=== PATIENT | male | born 1945 | race Caucasian/White ===

== ENCOUNTER 2023-03-13 07:48 | Outpatient (OUT) | payer MEDICARE, OTHER, SELFPAY ==
[2023-03-13 09:03] LABS: Thyroid Stimulating Hormone 2.334 uIU/mL (0.358-3.740)
[2023-03-14 04:07] LABS: RPR Non Reactive (Non Reactive)
== END 2023-03-13 07:49 ==
PROVIDERS: PCP Nurse Practitioner Adult Health; Visit Provider Family Medicine
DX: R41.89 Other symptoms and signs involving cognitive functions and awareness (principal)
CPT/HCPCS: 36415; 82607; 82746; 84443; 86592

== ENCOUNTER 2023-04-10 08:41 | Outpatient (OUT) | payer MEDICARE, SELFPAY ==
--- NOTE | 2023-04-10 08:52 | MR_ITS ---
The [address] [address] Patient Name: NEIL MARCELO MRN: [id number] date: 1945 Sex: M Assigned Patient Location: MRI Current Patient Location: MRI Accession/Order Number: [id number] Exam Date: 04/10/2023 09:02 Report Date: 04/10/2023 22:17 At the request of: GRACE VAZQUEZ Procedure: MR head/brain wo con EXAMINATION: MR head/brain wo con HISTORY: Cognitive Decline R41.89 TECHNIQUE: MRI brain routine protocol without contrast. COMPARISON: CT brain 04/07/2022 RESULT: Acute Change: No evidence of an acute intracranial process. Apparent area of restricted diffusion in the right potter radiata and right temporal lobe adjacent to the posterior horn of the right lateral ventricle, likely relates to T2 shine through. There is no ADC map correlate. Hemorrhage: No evidence of prior parenchymal hemorrhage on the susceptibility weighted sequences. Mass Lesion/ Mass Effect: No evidence of an intracranial mass or extra-axial fluid collection. No significant mass effect. Chronic Change: Scattered patchy and confluent areas of increased T2 and FLAIR signal are present in the supratentorial white matter which is nonspecific but likely represents chronic microvascular ischemia. Multiple small prior right cerebellar infarcts. Parenchyma: There is moderate generalized parenchymal volume loss. Ventricles: Splenomegaly, slightly out of proportion to degree of generalized volume loss. Skull Base: Hypothalamic and pituitary region are grossly normal. Craniocervical junction is normal. No significant marrow replacement process. Vasculature: Major intracranial arteries and dural venous sinuses demonstrate typical flow voids, suggesting patency by spin echo criteria. Other: Mild paranasal sinus mucosal thickening. Mastoid air cells are clear. The orbits and extracranial soft tissues are unremarkable. MR/MR head/brain wo con IMPRESSION: 1. No evidence of acute infarct or intracranial hemorrhage. 2. Ventriculomegaly, out of proportion to degree of generalized volume loss, nonspecific, but can be seen with normal pressure hydrocephalus. 3. 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 Electronically authenticated by: BHARAT MATHUR Date: 04/10/2023 22:17
== END 2023-04-10 08:42 | disposition home or self-care (01) ==
LOC: MRI 08:43
PROVIDERS: PCP Nurse Practitioner Adult Health; Visit Provider Nurse Practitioner Adult Health
DX: R41.89 Other symptoms and signs involving cognitive functions and awareness (principal)
CPT/HCPCS: 70551

== ENCOUNTER 2023-04-16 19:56 | Outpatient (OUT) | payer MEDICARE, OTHER, SELFPAY | END 2023-04-16 19:57 | disposition home or self-care (01) | LOC: SLEEP 19:57 | PROVIDERS: PCP Nurse Practitioner Adult Health; Visit Provider Nurse Practitioner Adult Health | DX: G47.33 Obstructive sleep apnea (adult) (pediatric) (principal); G47.11 Idiopathic hypersomnia with long sleep time ==

== ENCOUNTER 2023-05-14 20:05 | Outpatient (OUT) | payer MEDICARE, SELFPAY | END 2023-05-14 20:06 | disposition home or self-care (01) | LOC: SLEEP 20:05 | PROVIDERS: PCP Nurse Practitioner Adult Health; Visit Provider Nurse Practitioner Adult Health | DX: G47.33 Obstructive sleep apnea (adult) (pediatric) (principal); G47.11 Idiopathic hypersomnia with long sleep time | CPT/HCPCS: 95810 ==

== ENCOUNTER 2023-05-20 15:45 | Emergency (ER) | payer MEDICARE, SELFPAY ==
[2023-05-20 15:47] VITALS: BP 148/89; PULSE 58; RESP 18; TEMP 36.9; O2SAT 98; BMI 25.8
--- NOTE | 2023-05-20 15:53 | XR_ITS ---
[address] [address] Patient Name: NEIL MARCELO MRN: [id number] date: 1945 Sex: M Assigned Patient Location: ER Current Patient Location: ER Accession/Order Number: [id number] Exam Date: 05/20/2023 16:15 Report Date: 05/20/2023 16:44 At the request of: IVY SYLVESTER Procedure: XR humerus LT EXAM: XR humerus LT, XR shoulder LT min 2V HISTORY: fall COMPARISON: None. TECHNIQUE: 2 views of the humerus and 2 views of the shoulder FINDINGS: IMPRESSION: Comminuted displaced intra-articular fracture of the humeral head and proximal glenohumeral junction. Glenohumeral joint effusion. Diffuse soft tissue edema. Orthopedic surgical evaluation is necessary. Electronically authenticated by: TOBI MENESES Date: 05/20/2023 16:44
--- NOTE | 2023-05-20 15:53 | CT_ITS ---
The [address] [address] Patient Name: NEIL MARCELO MRN: [id number] date: 1945 Sex: M Assigned Patient Location: ER Current Patient Location: ER Accession/Order Number: [id number] Exam Date: 05/20/2023 16:23 Report Date: 05/20/2023 16:48 At the request of: IVY SYLVESTER Procedure: CT head/brain wo con EXAM: CT head/brain wo con HISTORY: fall COMPARISON: 04/12/2022 TECHNIQUE: Axial CT scans through the head were obtained without IV contrast administration. Dose reduction techniques were achieved by using: automated exposure control and/or adjustment of mA and /or kV according to patient size and/or use of iterative reconstruction technique. FINDINGS: There is no evidence of acute intracranial hemorrhage or abnormal extra-axial fluid collection. No mass effect or midline shift is seen. There is no evidence of large acute territorial infarction. There is a chronic infarct in left occipital lobe. There is an additional small chronic infarct in right posterior frontal lobe. Mild enlarged cerebral sulci, consistent with age appropriate cerebral atrophy. The lateral and third ventricles appear moderately dilated. This appears out of proportion to the sulci which raises the possibility of communicating hydrocephalus. Patchy areas of low-attenuation are present in supratentorial white matter, likely represents chronic microvascular ischemia. To the limit of CT, the posterior fossa appears unremarkable. No definite acute fracture is identified. Soft tissues are unremarkable. The visualized orbits show no abnormal mass. The visualized paranasal sinuses show no air-fluid level. Mastoid air cells are clear. CT/CT head/brain wo con IMPRESSION: No CT evidence of acute intracranial abnormality. Areas of remote infarct at the left occipital and right posterior frontal lobes. Chronic microvascular ischemia and involutional changes. Moderate ventriculomegaly which is out of proportion to the sulci. This may be due to atrophy or communicating hydrocephalus. Electronically authenticated by: MILTON GASTON Date: 05/20/2023 16:48
--- NOTE | 2023-05-20 15:53 | XR_ITS ---
[address] [address] Patient Name: NEIL MARCELO MRN: [id number] date: 1945 Sex: M Assigned Patient Location: ER Current Patient Location: ER Accession/Order Number: [id number] Exam Date: 05/20/2023 16:15 Report Date: 05/20/2023 16:44 At the request of: IVY SYLVESTER Procedure: XR shoulder LT min 2V EXAM: XR humerus LT, XR shoulder LT min 2V HISTORY: fall COMPARISON: None. TECHNIQUE: 2 views of the humerus and 2 views of the shoulder FINDINGS: IMPRESSION: Comminuted displaced intra-articular fracture of the humeral head and proximal glenohumeral junction. Glenohumeral joint effusion. Diffuse soft tissue edema. Orthopedic surgical evaluation is necessary. Electronically authenticated by: TOBI MENESES Date: 05/20/2023 16:44
--- NOTE | 2023-05-20 16:51 | ED_ITS ---
HPI - General Adult General Chief complaint: Extremity Injury, Upper Stated complaint: Upper Extremity Injury from fall Time Seen by Provider: 05/20/23 15:53 Source: patient Mode of arrival: ambulance Limitations: no limitations History of Present Illness HPI narrative: 77-year-old male presents here with a chief complaint of a fall. Patient was carrying a hose and was stuck under a tire and he tripped with his arm outstretched. Presents here by squad with a left shoulder injury. He is uncertain as to whether or not he hit his head. Denies loss of consciousness. He is on blood thinner. Patient also has a small skin tear to the webspace between the 1st and 2nd digits of the left hand. He is not up-to-date on tetanus immunization.. Swelling noted to left upper extremity on initial evaluation. He is alert and oriented ?3. Denies headache neck pain. Related Data Allergies Allergy/AdvReac Type Severity Reaction Status Date / Time No Known Drug Allergies Allergy Verified 05/20/23 15:49 Review of Systems ROS Narrative All Systems are negative except as noted/marked.All systems reviewed and otherwise negative Exam Narrative Exam Narrative: General: The patient appears well and in no apparent distress. Patient is resting comfortably on cart. Skin: Warm, dry, no pallor noted. There is no rash noted. Head: Normocephalic, atraumatic Neck: Full range of motion no tenderness Midline Eye: Normal conjunctiva, no drainage, EOMI. PERRL Ears, Nose, Mouth, and Throat: oral mucosa is moist. Nares patent. Mouth without vesicles. Ear canals patent. Tm's without Erythema Musculoskeletal: Upper extremity tenderness to the proximal humerus region, difficulty with range of motion unable to elevate above a hundred eighty degrees, respiratory distally,. Soft tissue abrasion noted to the web space of the left hand between the 1st and 2nd digits small amount of bleeding controlled.Her extremities are unremarkable Neurological: A&O x3 normal speech Psychiatric: Cooperative Constitutional Vital Signs, click to edit/add: Last Vital Signs Temp 98.4 F 05/20/23 15:47 Pulse 58 L 05/20/23 15:47 Resp 18 05/20/23 15:47 BP 148/89 H 05/20/23 15:47 Pulse Ox 98 05/20/23 15:47 O2 Del Method Room Air 05/20/23 15:47 Course Vital Signs Vital signs: Vital Signs Temperature 98.4 F 05/20/23 15:47 Pulse Rate 58 L 05/20/23 15:47 Respiratory Rate 18 05/20/23 15:47 Blood Pressure 148/89 H 05/20/23 15:47 Pulse Oximetry 98 05/20/23 15:47 Oxygen Delivery Method Room Air 05/20/23 15:47 Temperature 98.4 F 05/20/23 15:47 Pulse Rate 58 L 05/20/23 15:47 Respiratory Rate 18 05/20/23 15:47 Blood Pressure 148/89 H 05/20/23 15:47 Pulse Oximetry 98 05/20/23 15:47 Oxygen Delivery Method Room Air 05/20/23 15:47 Medical Decision Making MDM Narrative Medical decision making narrative: Patient presented here to the emergency room with chief complaint of a accidental trip and fall. Patient had a mechanical fall landing on the outstretched left shoulder. Patient has a comminuted Displaced intra articular fracture of the humeral head and proximal glenohumeral junction. Patient had a head CT performed as well as x-rays. Radiology reading of the head CT showed no acute bleeding. Patient does have a history of dementia and his head previous strokes in the past. He is alert and oriented to self but has some issue following commands. states this is his baseline. She does feel comfortable taking him home. She does not want to keep him here in the hospital. He will follow-up with orthopedics tomorrow morning. Medicated here with one Percocet and discharged home with Percocet. Follow up as indicated with orthopedics. instructed to bring back if she should have any concerns with increased confusion or irritability. Differential Diagnosis Differential Diagnosis: Shoulder sprain, fracture Medical Records Medical records reviewed: Yes I reviewed the patient's medical records Imaging Data The [address] [address] XRay Report Signed Patient: NEIL MARCELO MR#: [id number] : 1945 Acct:[id number] Age/Sex: 77 / M ADM Date: 05/20/23 Loc: ER Attending Dr: Ordering Physician: Verenice Sylvester Date of Service: 05/20/23 Procedure(s): XR humerus LT Accession Number(s): [id number] cc: Verenice Sylvester; SAM PABON ~ The [address] [address] Patient Name: NEIL MARCELO MRN: [facility]:[id number] date: 1945 Sex: M Assigned Patient Location: ER Current Patient Location: ER Accession/Order Number: [id number] Exam Date: 05/20/2023 16:15 Report Date: 05/20/2023 16:44 At the request of: VERENICE SYLVESTER Procedure: XR humerus LT EXAM: XR humerus LT, XR shoulder LT min 2V HISTORY: fall COMPARISON: None. TECHNIQUE: 2 views of the humerus and 2 views of the shoulder FINDINGS: IMPRESSION: Comminuted displaced intra-articular fracture of the humeral head and proximal glenohumeral junction. Glenohumeral joint effusion. Diffuse soft tissue edema. Orthopedic surgical evaluation is necessary. : Radiologist's impression: [place] [address] XRay Report Signed Patient: NEIL MARCELO MR#: [id number] : 1945 Acct:[id number] Age/Sex: 77 / M ADM Date: 05/20/23 Loc: ER Attending Dr: Ordering Physician: Verenice Sylvester Date of Service: 05/20/23 Procedure(s): XR humerus LT Accession Number(s): [id number] cc: Verenice Sylvester; PEPPERSAM ~ The [address] [address] Patient Name: NEIL MARCELO MRN: [facility]:[id number] date: 1945 Sex: M Assigned Patient Location: ER Current Patient Location: ER Accession/Order Number: [id number] Exam Date: 05/20/2023 16:15 Report Date: 05/20/2023 16:44 At the request of: VERENICE SYLVESTER Procedure: XR humerus LT EXAM: XR humerus LT, XR shoulder LT min 2V HISTORY: fall COMPARISON: None. TECHNIQUE: 2 views of the humerus and 2 views of the shoulder FINDINGS: IMPRESSION: Comminuted displaced intra-articular fracture of the humeral head and proximal glenohumeral junction. Glenohumeral joint effusion. Diffuse soft tissue edema. Orthopedic surgical evaluation is necessary. VERENICE SYLVESTER Procedure: CT head/brain wo con EXAM: CT head/brain wo con HISTORY: fall COMPARISON: 04/12/2022 TECHNIQUE: Axial CT scans through the head were obtained without IV contrast administration. Dose reduction techniques were achieved by using: automated exposure control and/or adjustment of mA and /or kV according to patient size and/or use of iterative reconstruction technique. FINDINGS: There is no evidence of acute intracranial hemorrhage or abnormal extra-axial fluid collection. No mass effect or midline shift is seen. There is no evidence of large acute territorial infarction. There is a chronic infarct in left occipital lobe. There is an additional small chronic infarct in right posterior frontal lobe. Mild enlarged cerebral sulci, consistent with age appropriate cerebral atrophy. The lateral and third ventricles appear moderately dilated. This appears out of proportion to the sulci which raises the possibility of communicating hydrocephalus. Patchy areas of low-attenuation are present in supratentorial white matter, likely represents chronic microvascular ischemia. To the limit of CT, the posterior fossa appears unremarkable. No definite acute fracture is identified. Soft tissues are unremarkable. The visualized orbits show no abnormal mass. The visualized paranasal sinuses show no air-fluid level. Mastoid air cells are clear. IMPRESSION: No CT evidence of acute intracranial abnormality. Areas of remote infarct at the left occipital and right posterior frontal lobes. Chronic microvascular ischemia and involutional changes. Moderate ventriculomegaly which is out of proportion to the sulci. This may be due to atrophy or communicating hydrocephalus. Electronically authenticated Discharge Plan Discharge Chief Complaint: Extremity Injury, Upper Clinical Impression: Fracture of shoulder Patient Disposition: Home, Self-Care Time of Disposition Decision: 17:13 Condition: Good Instructions: Arm Fracture in Adults (ED), P.R.I.C.E. Treatment (ED) Stand Alone Forms: Portal Instructions Referrals: SAM PABON [Primary Care Provider] - 1 week Gianfranco Elkins MD [Physician] - 05/21/23 9:30 am
[2023-05-20] MEDS: ADACEL DIPH,PERTUSS(ACELL),TET VAC/PF 0.5 ML ADULT SYRINGE IM (17:14)
--- NOTE | 2023-05-20 17:41 | PC.NURSE ---
Placed sling on left arm. Patient education on how to dress with a fractured humerus, how to place sling, how to remove sling. Education provided to and patient. No further questions.
== END 2023-05-20 17:44 | disposition home or self-care (01) ==
PROVIDERS: Emergency Provider Emergency Medicine Emergency Medical Services; PCP Family Medicine
DX: S42.292A Other displaced fracture of upper end of left humerus, initial encounter for closed fracture (principal); S60.512A Abrasion of left hand, initial encounter; W01.10XA Fall on same level from slipping, tripping and stumbling with subsequent striking against unspecified object, initial encounter; Z23 Encounter for immunization; F03.90 Unspecified dementia, unspecified severity, without behavioral disturbance, psychotic disturbance, mood disturbance, and anxiety; Z86.73 Personal history of transient ischemic attack (TIA), and cerebral infarction without residual deficits
CPT/HCPCS: 70450; 73030; 73060; 90471; 90715; 99284

== ENCOUNTER 2023-06-04 09:25 | Outpatient (OUT) | payer MEDICARE, SELFPAY ==
--- NOTE | 2023-06-04 09:27 | XR_ITS ---
[address] [address] Patient Name: NEIL MARCELO MRN: [id number] date: 1945 Sex: M Assigned Patient Location: RAD Current Patient Location: [facility] Accession/Order Number: [id number] Exam Date: 06/04/2023 09:35 Report Date: 06/04/2023 12:26 At the request of: RYAN FLOWERS Procedure: XR shoulder LT min 2V EXAM: XR shoulder LT min 2V HISTORY: Other Closed Nondisplaced Fracture Of Left Humerus COMPARISON: 05/20/2023 TECHNIQUE: 2 views Findings/impression: No significant change from the prior exam. Comminuted mildly displaced intra-articular fracture of the proximal humerus. No soft tissue swelling. Electronically authenticated by: CONCHITA QUIROZ Date: 06/04/2023 12:26
== END 2023-06-04 09:26 | disposition home or self-care (01) ==
LOC: RAD 09:25
PROVIDERS: PCP Nurse Practitioner Adult Health; Visit Provider Orthopaedic Surgery
DX: S42.295A Other nondisplaced fracture of upper end of left humerus, initial encounter for closed fracture (principal)
CPT/HCPCS: 73030

== ENCOUNTER 2023-06-07 08:49 | Outpatient (OUT) | payer MEDICARE, SELFPAY ==
[2023-06-07 09:11] LABS: Basophils Percent Auto 0.4 % (0.2-2.0); Eosinophils Absolute Auto 0.2 10^3/uL (0.0-0.7); Eosinophils Percent Auto 5.4 % (0.9-7.0); Hematocrit 26.8 % (42.0-54.0); Hemoglobin 9.1 g/dL (14.0-18.0); Immature Granulocytes Abs Auto 0.01 10^3/uL (0.00-0.03); Immature Granulocytes Pct Auto 0.4 % (0.0-0.5); Lymphocytes Absolute Auto 1.1 10^3/uL (1.2-3.8); Lymphocytes Percent Auto 38.7 % (20.5-60.0); Mean Corpuscular Hemoglobin 37.1 pg (25.9-34.0); Mean Corpuscular Volume 109.4 fL (80.0-94.0); Mean Platelet Volume 8.4 fL (9.5-13.5); Monocytes Absolute Auto 0.1 10^3/uL (0.3-0.8); Monocytes Percent Auto 4.3 % (1.7-12.0); Neutrophils Absolute Auto 1.4 10^3/uL (1.4-6.5); Neutrophils Percent Auto 50.8 % (43.0-75.0); Platelet Count 199 10^3/uL (150-450); Red Blood Count 2.45 10^6/uL (4.70-6.10); Red Cell Distribution Width 13.1 % (11.0-15.0); White Blood Count 2.8 10^3/uL (4.0-11.0)
[2023-06-07 09:32] LABS: Alanine Aminotransferase 16 U/L (16-63); Albumin Globulin Ratio 0.7; Albumin Level 3.2 g/dL (3.4-5.0); Alkaline Phosphatase 132 U/L (46-116); Aspartate Amino Transferase 13 U/L (15-37); BUN Creatinine Ratio 9.6; Bilirubin Total 0.5 mg/dL (0.2-1.0); Calcium 9.5 mg/dL (8.5-10.1); Chloride 101 mmol/L (98-107); Chol HDL Ratio 1.8; Cholesterol 73 mg/dL (<=200); Estimated GFR (African America >60 (>=60); Estimated GFR (Non-African Ame >60 (>=60); Globulin 4.6 g/dL; Glucose 95 mg/dL (74-106); HDL Cholesterol 40 mg/dL (40-60); LDL Cholesterol Calculated 22.2 mg/dL; Sodium 135 mmol/L (136-145); Thyroid Stimulating Hormone 3.331 uIU/mL (0.358-3.740); Total Protein 7.8 g/dL (6.4-8.2); Triglycerides 54 mg/dL (<=150); VLDL CHOLESTEROL 10.8 mg/dL
[2023-06-07 09:57] LABS: Free T4 0.97 ng/dL (0.76-1.46)
== END 2023-06-07 08:50 | disposition home or self-care (01) ==
LOC: LAB 08:52
PROVIDERS: PCP Family Medicine
DX: N40.0 Benign prostatic hyperplasia without lower urinary tract symptoms (principal); Z87.891 Personal history of nicotine dependence; G45.9 Transient cerebral ischemic attack, unspecified; Z79.899 Other long term (current) drug therapy; I10 Essential (primary) hypertension; Z79.01 Long term (current) use of anticoagulants; Z86.79 Personal history of other diseases of the circulatory system; I95.9 Hypotension, unspecified; E66.3 Overweight
CPT/HCPCS: 36415; 80053; 80061; 84439; 84443; 85025

== ENCOUNTER 2023-06-15 09:16 | Outpatient (OUT) | payer MEDICARE, SELFPAY ==
[2023-06-15 09:33] LABS: Eosinophils Absolute Auto 0.2 10^3/uL (0.0-0.7); Eosinophils Percent Auto 8.4 % (0.9-7.0); Hematocrit 27.2 % (42.0-54.0); Hemoglobin 9.1 g/dL (14.0-18.0); Lymphocytes Absolute Auto 1.1 10^3/uL (1.2-3.8); Lymphocytes Percent Auto 40.3 % (20.5-60.0); Mean Corpuscular HGB Conc 33.5 g/dL (29.9-35.2); Mean Corpuscular Hemoglobin 37.3 pg (25.9-34.0); Mean Corpuscular Volume 111.5 fL (80.0-94.0); Mean Platelet Volume 8.6 fL (9.5-13.5); Monocytes Absolute Auto 0.1 10^3/uL (0.3-0.8); Monocytes Percent Auto 3.8 % (1.7-12.0); Neutrophils Absolute Auto 1.3 10^3/uL (1.4-6.5); Neutrophils Percent Auto 47.5 % (43.0-75.0); Platelet Count 153 10^3/uL (150-450); Red Blood Count 2.44 10^6/uL (4.70-6.10); White Blood Count 2.6 10^3/uL (4.0-11.0)
== END 2023-06-15 09:17 | disposition home or self-care (01) ==
LOC: LAB 09:18
PROVIDERS: PCP Family Medicine
DX: D64.9 Anemia, unspecified (principal)
CPT/HCPCS: 36415; 85025

== ENCOUNTER 2023-07-09 20:06 | Outpatient (OUT) | payer MEDICARE, SELFPAY | END 2023-07-09 20:07 | disposition home or self-care (01) | LOC: SLEEP 20:06 | PROVIDERS: PCP Family Medicine; Visit Provider Nurse Practitioner Adult Health | DX: G47.33 Obstructive sleep apnea (adult) (pediatric) (principal); G47.11 Idiopathic hypersomnia with long sleep time | CPT/HCPCS: 95811 ==

== ENCOUNTER 2023-07-13 15:53 | Emergency (ER) | payer MEDICARE, SELFPAY ==
[2023-07-13] VITALS (9 sets, daily range): BP systolic 162–190; BP diastolic 77–97; PULSE 78–90; RESP 7–20; TEMP 36.5; O2SAT 97–100; BMI 32.9
--- NOTE | 2023-07-13 16:01 | ECG_ITS ---
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
--- NOTE | 2023-07-13 16:09 | ED_ITS ---
HPI - General Adult General Chief complaint: Head Injury Stated complaint: FALL Time Seen by Provider: 07/13/23 16:01 Source: patient Mode of arrival: ambulance Limitations: no limitations History of Present Illness HPI narrative: Patient is a 77-year-old male who is presenting to the Emergency Room after multiple falls at home. Patient fell due to days ago. Patient does take Eliquis. Patient came in by EMS. Patient daughter at home is a very good historian. Patient has been diagnosed with vascular dementia and cognitive decline. Patient sees Dr. Vanegas for neurology. Patient's PCP is in Dr. Eros Rain. Patient was a home with his . Patient has a cane and just recently has a walker at home that he can use. However patient is unsteady with his gait this pain ongoing for the past 3-4 months. Patient also has fallen and broke his left shoulder. Patient is supposed to be having a left shoulder reversal of that shoulder replacement surgery, and awaiting for weeks for this. To patient's h aving a hard time using his left arm secondary to left shoulder pain from previous fracture. Patient has unsteady gait which is been ongoing, chronic, but slightly getting worse. Patient wants to go home, he does not want to be admitted to the hospital. Patient is not interested in assisted living. Patient's and his had never had a home health assessment, daughter was not aware of this. The daughter is only one helping the parents at home, she lives in [place]. Daughter is very nice and extremely good source of history. Patient is taking Eliquis and aspirin. . All systems are negative except as noted/marked. All systems reviewed and otherwise negative. . Nurses note and vital signs reviewed and patient is not hypoxic. General: The patient appears well and in no apparent distress. Patient is resting comfortably on cart. Patient is not toxic, lethargic, or listless Skin: Warm, dry, no pallor noted. There is no rash noted. No petechiae, purpura. Head: Normocephalic, atraumatic, Patient has no midline or paracervical tenderness to palpation. Full range of motion of cervical spinal no difficulty. Eye: Normal conjunctiva, no drainage, EOMI. PERRL Ears, Nose, Mouth, and Throat: oral mucosa is moist. Nares patent. Mouth without vesicles. Cardiovascular: Regular Rate and Rhythm, no murmur, gallop, rub Respiratory: Patient is in no distress, no accessory muscle use, lungs are clear to auscultation, no wheezing, rales or rhonchi Back: non-tender, no CVA tenderness bilaterally to percussion. No CT LS midline pain GI: soft, no tenderness to palpation, no masses appreciated. No rebound, guarding, or rigidity noted. No flank pain bilateral, No distention Musculoskeletal: Patient has full range of motion of all of the extremities Except the left upper show any. Patient has full range of motion of left elbow, wrist and hand no difficulty. Patient has moderate ongoing chronic pain with extreme extension flexion and abduction of left shoulder secondary to previous fracture approximately one month ago., no motor, sensory, or focal neurological deficits Neurological: A&O x3, Slightly confused to time, knows it is fall, normal speech, NIH 0. Patient will intermittently hesitate to answer questions, this is normal baseline for him per daughters witnessing this at bedside as well. NIH 0. Patient is at his normal basic functioning cognitive baseline according to daughter at bedside. No acute changes at this time. Psychiatric: Cooperative Related Data Home Medications Medication Instructions Recorded Confirmed apixaban 5 mg tablet (Eliquis) 5 mg PO Q12H 05/20/23 07/13/23 atorvastatin 40 mg tablet 40 mg PO DAILY 05/20/23 07/13/23 cyanocobalamin (vitamin B-12) 1,000 mcg PO DAILY 05/20/23 07/13/23 1,000 mcg tablet doxazosin 4 mg tablet 4 mg PO DAILY 05/20/23 07/13/23 finasteride 5 mg tablet 5 mg PO DAILY 05/20/23 07/13/23 fluoxetine 20 mg capsule 20 mg PO DAILY 05/20/23 07/13/23 folic acid 1 mg tablet 1 mg PO DAILY 05/20/23 07/13/23 metoprolol succinate 25 mg 25 mg PO DAILY 05/20/23 07/13/23 tablet,extended release 24 hr spironolactone 25 mg tablet 25 mg PO DAILY 05/20/23 07/13/23 bfkmivqlgx-gnkcovxmemetc-yemmkkwd 1 tab PO Q6H PRN pain 07/13/23 07/13/23 50 mg-325 mg-40 mg tablet levothyroxine 125 mcg tablet 125 mcg PO DAILY 07/13/23 07/13/23 loperamide 2 mg capsule 2 mg PO Q6H PRN loose stool 07/13/23 07/13/23 losartan 100 mg tablet 100 mg PO DAILY 07/13/23 07/13/23 meclizine 25 mg tablet 25 mg PO .every 6 hour PRN 07/13/23 07/13/23 dizziness memantine 5 mg tablet 5 mg PO .daily 07/13/23 07/13/23 tolterodine 2 mg capsule,extended 2 mg PO Q24H 07/13/23 07/13/23 release 24 hr Allergies Allergy/AdvReac Type Severity Reaction Status Date / Time No Known Drug Allergies Allergy Verified 05/20/23 15:49 PFSH PFSH Medical History (Updated 07/13/23 @ 17:56 by Tobias Velasco MD) Afib ?I48.91 - Unspecified atrial fibrillation (ICD-10) Alzheimer disease ?G30.9 - Alzheimer's disease, unspecified (ICD-10) ?F02.80 - Dementia in other diseases classified elsewhere, unspecified severity, without behavioral disturbance, psychotic disturbance, mood disturbance, and anxiety (ICD-10) BPH (benign prostatic hyperplasia) ?N40.0 - Benign prostatic hyperplasia without lower urinary tract symptoms (ICD-10) Head injury ?S09.90XA - Unspecified injury of head, initial encounter (ICD-10) Hypertension ?I10 - Essential (primary) hypertension (ICD-10) Multiple falls ?R29.6 - Repeated falls (ICD-10) NPH (normal pressure hydrocephalus) ?G91.2 - (Idiopathic) normal pressure hydrocephalus (ICD-10) Obstructive sleep apnea ?G47.33 - Obstructive sleep apnea (adult) (pediatric) (ICD-10) Recurrent cerebrovascular accidents (CVAs) ?I63.9 - Cerebral infarction, unspecified (ICD-10) Vertigo ?R42 - Dizziness and giddiness (ICD-10) Social History Smoking status: Never smoker Exam Constitutional Vital Signs, click to edit/add: Last Vital Signs Temp 97.7 F 07/13/23 15:56 Pulse 78 07/13/23 17:12 Resp 20 07/13/23 17:12 BP 165/77 H 07/13/23 17:12 Pulse Ox 98 07/13/23 17:12 O2 Del Method Room Air 07/13/23 16:11 Course Vital Signs Vital signs: Vital Signs Temperature 97.7 F 07/13/23 15:56 Pulse Rate 78 07/13/23 15:56 Respiratory Rate 18 07/13/23 15:56 Blood Pressure 162/92 H 07/13/23 15:56 Pulse Oximetry 98 07/13/23 15:56 Temperature 97.7 F 07/13/23 15:56 Pulse Rate 78 07/13/23 17:12 Respiratory Rate 20 07/13/23 17:12 Blood Pressure 165/77 H 07/13/23 17:12 Pulse Oximetry 98 07/13/23 17:12 Oxygen Delivery Method Room Air 07/13/23 16:11 Medical Decision Making Lab Data Lab results reviewed: Yes I reviewed the patient's lab results Labs: Lab Results 07/13/23 07/13/23 Range/Units 16:16 17:29 WBC 2.7 L (4.0-11.0) 10^3/uL RBC 2.61 L (4.70-6.10) 10^6/uL Hgb 10.0 L (14.0-18.0) g/dL Hct 28.3 L (42.0-54.0) % MCV 108.4 H (80.0-94.0) fL MCH 38.3 H (25.9-34.0) pg MCHC 35.3 H (29.9-35.2) g/dL RDW 12.4 (11.0-15.0) % Plt Count 155 (150-450) 10^3/uL MPV 8.5 L (9.5-13.5) fL Neut % (Auto) 57.7 (43.0-75.0) % Lymph % (Auto) 32.4 (20.5-60.0) % [place] % (Auto) 4.4 (1.7-12.0) % Eos % (Auto) 5.5 (0.9-7.0) % Baso % (Auto) 0.0 L (0.2-2.0) % Neut # (Auto) 1.6 (1.4-6.5) 10^3/uL Lymph # (Auto) 0.9 L (1.2-3.8) 10^3/uL [place] # (Auto) 0.1 L (0.3-0.8) 10^3/uL Eos # (Auto) 0.2 (0.0-0.7) 10^3/uL Baso # (Auto) 0.0 (0.0-0.1) 10^3/uL Abs Immat Gran (auto) 0.00 (0.00-0.03) 10^3/uL Imm/Tot Granulo (auto) 0.0 (0.0-0.5) % PT 11.4 (9.0-11.6) sec INR 1.08 Sodium 131 L (136-145) mmol/L Potassium 3.7 (3.5-5.1) mmol/L Chloride 99 (98-107) mmol/L Carbon Dioxide 24.4 (21.0-32.0) mmol/L Anion Gap 11.3 BUN 21.0 H (7.0-18.0) mg/dL Creatinine 1.09 (0.70-1.30) mg/dL Est GFR ( Amer) >60 (>=60) Est GFR (Non-Af Amer) >60 (>=60) BUN/Creatinine Ratio 19.3 Glucose 99 (74-106) mg/dL Lactate 0.9 (0.4-2.0) mmol/L Calcium 9.4 (8.5-10.1) mg/dL Magnesium 1.7 L (1.8-2.4) mg/dL Total Bilirubin 0.3 (0.2-1.0) mg/dL AST 13 L (15-37) U/L ALT 16 (16-63) U/L Alkaline Phosphatase 123 H (46-116) U/L Troponin I High Sens 16.4 (4.0-76.1) pg/mL NT-Pro-B Natriuret Pep 109.0 (<=1800.0) pg/mL Total Protein 8.2 (6.4-8.2) g/dL Albumin 3.4 (3.4-5.0) g/dL Globulin 4.8 g/dL Albumin/Globulin Ratio 0.7 Lipase 47.0 (16.0-77.0) U/L TSH 2.970 (0.358-3.740) uIU/mL Urine Color Lt. yellow (YELLOW) Urine Clarity Clear (CLEAR) Urine pH 5.5 (5.0-9.0) Ur Specific [place] 1.010 (1.005-1.025) Urine Protein Negative (NEG/TRACE) mg/dL Urine Glucose (UA) Negative (NEGATIVE) mg/dL Urine Ketones Negative (NEGATIVE) mg/dL Urine Occult Blood Trace-i (NEGATIVE) Urine Nitrite Negative (NEGATIVE) Urine Bilirubin Negative (NEGATIVE) Urine Urobilinogen 0.2 (0.2-1.0) EU/dL Ur Leukocyte Esterase Negative (NEGATIVE) Urine RBC 0-2 (0-2) #/HPF Urine WBC None seen (NONE SEEN) #/HPF Ur Squamous Epith Cells None seen (NONE/RARE) #/LPF Urine Crystals None seen (None Seen) #/HPF Urine Bacteria None seen (NONE SEEN) #/HPF Urine Casts None seen (NONE SEEN) #/LPF Urine Mucus None seen (NONE SEEN) Patient has chronic pancytopenia, not acute. CT of the brain showed no acute findings. Patient CT of the head, cervical spine, chest, abdomen, pelvis. Patient has bilateral ventralmegaly seen on MRI in March and also on CAT scan today. Lengthy discussion was had at bedside that patient may have normal pressure hydrocephalus that could be causing some of his symptoms of urinary incontinence, unsteady gait, and intermittent confusion. It was recommended the patient call Dr. Vanegas office and speak to them on Sunday to see if a spinal tap would be indicated or not. Patient has multiple specialists/Physicians worked with him with his multiple etiologies of vascular dementia, cognitive decline. Patient uses a walker at discharge well that is normal for him. Patient was prescribed a rollader with a seat to use at home. Patient's daughter was at bedside throughout patient's visit. She is an excellent source of history. Patient wants to go home, he has a functional decision-making capacity to go home. We spent 10-15 minutes talking about home health care assessments, calling the PCP on Sunday to have a home health care assessment initiated which has not been done yet. We talked about possibility of home health care, and potentially the future of assisted living or further assistant producer nursing care. Patient understands this, as his daughter. Patient's works at [employer], she has 3 more weeks of working, she makes the dresses/seamstress other costumes. Patient and daughter feel that there is enough help at home and feels safe taking him home at this time. Patient is very adamant that he wants to go home, does not want be placing any type of admission to the hospital rehab at this time. Patient walked with a walker at discharge, no questions at discharge. No acute findings and patient's lab testing. ECG Data Attestation: I personally reviewed and interpreted this ECG as follows: (EKG interpretation. Normal sinus rhythm at 79 beats a minute. Normal axis deviation. No acute ST elevation, no acute ectopy. QTC of 416. Artifact noted.) Discharge Plan Discharge Chief Complaint: Head Injury Clinical Impression: Multiple falls Patient Disposition: Home, Self-Care Condition: Fair Prescriptions / Home Meds: No Action Eliquis 5 mg tablet 5 mg PO Q12H atorvastatin 40 mg tablet 40 mg PO DAILY cyanocobalamin (vitamin B-12) 1,000 mcg tablet 1,000 mcg PO DAILY doxazosin 4 mg tablet 4 mg PO DAILY finasteride 5 mg tablet 5 mg PO DAILY fluoxetine 20 mg capsule 20 mg PO DAILY folic acid 1 mg tablet 1 mg PO DAILY metoprolol succinate 25 mg tablet extended release 24 hr 25 mg PO DAILY spironolactone 25 mg tablet 25 mg PO DAILY fixmrdiwlg-ckwzzrittjgam-qkwa 50-325-40 mg tablet 1 tab PO Q6H PRN (Reason: pain) levothyroxine 125 mcg tablet 125 mcg PO DAILY loperamide 2 mg capsule 2 mg PO Q6H PRN (Reason: loose stool) losartan 100 mg tablet 100 mg PO DAILY Patient Comments: take 1/2 pill (50mg total) meclizine 25 mg tablet 25 mg PO .every 6 hour PRN (Reason: dizziness) memantine 5 mg tablet 5 mg PO .daily tolterodine 2 mg capsule,extended release 24hr 2 mg PO Q24H Instructions: Hydrocephalus (DC) Additional Instructions: Call Dr. Vanegas office on Sunday and follow-up on results of MRI from March and CAT scans from today along with multiple falls. Call Sunday to your advertising inserter concerning whether he should continue taking Eliquis or not secondary to multiple falls in the risk of falling and hitting her head with blood thinners. A copy of your MRI from March, and your CAT scans from today have been given to you. Stand Alone Forms: Portal Instructions Referrals: SAM PABON [Primary Care Provider] - 1 week
[2023-07-13 16:23] LABS: Eosinophils Absolute Auto 0.2 10^3/uL (0.0-0.7); Eosinophils Percent Auto 5.5 % (0.9-7.0); Hematocrit 28.3 % (42.0-54.0); Lymphocytes Absolute Auto 0.9 10^3/uL (1.2-3.8); Lymphocytes Percent Auto 32.4 % (20.5-60.0); Mean Corpuscular HGB Conc 35.3 g/dL (29.9-35.2); Mean Corpuscular Hemoglobin 38.3 pg (25.9-34.0); Mean Corpuscular Volume 108.4 fL (80.0-94.0); Mean Platelet Volume 8.5 fL (9.5-13.5); Monocytes Absolute Auto 0.1 10^3/uL (0.3-0.8); Monocytes Percent Auto 4.4 % (1.7-12.0); Neutrophils Absolute Auto 1.6 10^3/uL (1.4-6.5); Neutrophils Percent Auto 57.7 % (43.0-75.0); Platelet Count 155 10^3/uL (150-450); Red Blood Count 2.61 10^6/uL (4.70-6.10); Red Cell Distribution Width 12.4 % (11.0-15.0); White Blood Count 2.7 10^3/uL (4.0-11.0)
[2023-07-13 16:36] LABS: INR 1.08; Prothrombin Time 11.4 sec (9.0-11.6)
[2023-07-13 16:39] LABS: Alanine Aminotransferase 16 U/L (16-63); Albumin Globulin Ratio 0.7; Albumin Level 3.4 g/dL (3.4-5.0); Alkaline Phosphatase 123 U/L (46-116); Anion Gap 11.3; Aspartate Amino Transferase 13 U/L (15-37); BUN Creatinine Ratio 19.3; Bilirubin Total 0.3 mg/dL (0.2-1.0); Calcium 9.4 mg/dL (8.5-10.1); Carbon Dioxide 24.4 mmol/L (21.0-32.0); Chloride 99 mmol/L (98-107); Estimated GFR (African America >60 (>=60); Estimated GFR (Non-African Ame >60 (>=60); Globulin 4.8 g/dL; Glucose 99 mg/dL (74-106); Potassium 3.7 mmol/L (3.5-5.1); Sodium 131 mmol/L (136-145); Total Protein 8.2 g/dL (6.4-8.2)
[2023-07-13 16:40] LABS: Lactate/Lactic Acid 0.9 mmol/L (0.4-2.0)
[2023-07-13 16:46] LABS: Magnesium 1.7 mg/dL (1.8-2.4); Troponin I High Sensitivity 16.4 pg/mL (4.0-76.1)
--- NOTE | 2023-07-13 16:51 | CT_ITS ---
[address] [address] Patient Name: NEIL MARCELO MRN: [id number] date: 1945 Sex: M Assigned Patient Location: ER Current Patient Location: Accession/Order Number: [id number] Exam Date: 07/13/2023 16:27 Report Date: 07/13/2023 17:20 At the request of: ABHINAV BOLTON Procedure: CT chest w con EXAM: CT chest w con, CT abdomen pelvis w con TECHNIQUE: Axial CT images were obtained of the chest, abdomen and pelvis following intravenous contrast administration. Sagittal and coronal reformatted images were also obtained. Dose reduction techniques were achieved by using automated exposure control and/or adjustment of mA and/or kV according to patient size and/or use of iterative reconstruction technique. HISTORY: Recent falls COMPARISON: 11/05/2021 FINDINGS: Neck and Axilla: No lower neck or axillary lymphadenopathy. Mediastinum and Yenifer: No hilar or mediastinal lymphadenopathy. Heart and Major Vessels: The heart appears unremarkable for size without pericardial effusion. The aorta and central pulmonary arteries are unremarkable for size. Lung Arredondo: Trachea and central bronchi are clear. Stable benign 5 mm rounded nodule medially in the right lung apex. Pleural Cavities: No significant pleural effusion. No pneumothorax. Chest Wall: Right shoulder arthroplasty noted. Chronic posttraumatic deformity of the left proximal humerus. Several old healed rib fractures bilaterally. No definite acute rib fracture. Liver: The liver is homogeneous with normal contours and normal size. Gallbladder: The gallbladder is unremarkable. There is no intra or extrahepatic biliary dilatation. Pancreas: The pancreas is homogeneous without evidence for mass lesion or inflammation. Spleen: The spleen is unremarkable without evidence for mass lesion. Adrenal glands: The adrenal glands are unremarkable Kidneys and bladder: 9.7 cm simple cyst of the lateral cortex right kidney. 6.7 cm benign simple cyst of the mid to upper pole left kidney. Punctate nonobstructing calcification of both kidneys. The ureters demonstrate normal caliber. The urinary bladder is unremarkable. GI Tract: Stomach is unremarkable. Visualized small bowel is unremarkable without evidence for obstruction or active inflammation. The appendix is unremarkable.Diverticula are seen of the colon, more significant involving the distal colon. The visualized large bowel is otherwise unremarkable. Reproductive: Unremarkable Lymph nodes: No retroperitoneal or abdominal lymphadenopathy. Vascular: The aorta is not dilated. Peritoneum: No free intraperitoneal air or fluid. No acute inflammation. Abdominal wall: Moderate superior endplate compression fracture of the L1 vertebral body appears worse than on 11/05/2021 but otherwise chronic without surrounding hematoma. Degenerative disc disease L5-S1. Subcutaneous soft tissue hematoma lateral to the left hip. CT/CT chest w con IMPRESSION: No acute traumatic injury to the chest, abdomen or pelvis. Chronic findings of the chest, abdomen and pelvis, as above. Electronically authenticated by: JACINTO TOSCANO Date: 07/13/2023 17:20
--- NOTE | 2023-07-13 16:51 | CT_ITS ---
The [place] [id number] Patient Name: NEIL MARCELO MRN: [id number] date: 1945 Sex: M Assigned Patient Location: ER Current Patient Location: ER Accession/Order Number: [id number] Exam Date: 07/13/2023 16:27 Report Date: 07/13/2023 17:00 At the request of: ABHINAV BOLTON Procedure: CT cervical spine wo con EXAM: CT cervical spine wo con HISTORY: falls COMPARISON: Cervical spine CT 11/05/2021 TECHNIQUE: Axial CT imaging is performed. Sagittal and coronal reformatted/reconstructed sequences are additionally performed. FINDINGS: Again demonstrated is straightening of the normal cervical lordosis. Vertebral body heights and alignments exhibit no fracture or listhesis. The dens and lateral masses of C1 are symmetric. Multilevel intervertebral disc space narrowing, endplate and uncovertebral arthrosis. Scattered age-related facet arthrosis. No prevertebral soft tissue edema. Atherosclerosis of the vascular structures. Approximately 15.9 x 12 x 5.3 mm polyp within the left sphenoid sinus (axial 5, coronal 1 and sagittal 27). The visualized osseous skull base, mastoid air cells, airway, superficial subcutaneous soft tissues, thoracic inlet and pulmonary apices exhibit no gross visualized acute abnormality CT/CT cervical spine wo con IMPRESSION: No visualized acute cervical spine abnormality 15.9 x 12 x 5.3 mm polyp within the left sphenoid sinus Electronically authenticated by: TOBI MENESES Date: 07/13/2023 17:00
--- NOTE | 2023-07-13 16:51 | CT_ITS ---
The [address] [address] Patient Name: NEIL MARCELO MRN: [id number] date: 1945 Sex: M Assigned Patient Location: ER Current Patient Location: ER Accession/Order Number: [id number] Exam Date: 07/13/2023 16:27 Report Date: 07/13/2023 17:05 At the request of: ABHINAV BOLTON Procedure: CT head/brain wo con EXAM: CT head/brain wo con HISTORY: falls COMPARISON: CT brain 05/20/2023. TECHNIQUE: Axial CT scans through the head were obtained without IV contrast administration. Dose reduction techniques were achieved by using: automated exposure control and/or adjustment of mA and /or kV according to patient size and/or use of iterative reconstruction technique. FINDINGS: There is no acute intracranial hemorrhage or abnormal extra-axial fluid collection. No mass effect or midline shift is seen. There is no evidence of large acute territorial infarction. There is no hydrocephalus. Redemonstrated are areas of of chronic infarct in left occipital lobe and right frontal lobe. There are patchy low-attenuation areas in the supraventricular white matter, in keeping with chronic microvascular ischemia. Mild enlargement of the cortical sulci, consistent with age appropriate cerebral atrophy. The ventricles are out of proportion moderately dilated. To the limit of CT, the posterior fossa appears unremarkable. The calvaria and extra cranial soft tissues are unremarkable. The visualized orbits show no abnormal mass. The visualized paranasal sinuses show no air-fluid level. Mucosal thickening in the bilateral sphenoid sinuses. Mastoid air cells are clear. CT/CT head/brain wo con IMPRESSION: No acute intracranial process. Areas of chronic infarct in left occipital and right frontal lobes. Chronic microvascular ischemia and involutional changes. Ventriculomegaly, out of proportion to the generalized volume loss, nonspecific, may be due to atrophy or communicating hydrocephalus. Electronically authenticated by: MILTON GASTON Date: 07/13/2023 17:05
--- NOTE | 2023-07-13 16:51 | CT_ITS ---
[address] [address] Patient Name: NEIL MARCELO MRN: [id number] date: 1945 Sex: M Assigned Patient Location: ER Current Patient Location: Accession/Order Number: [id number] Exam Date: 07/13/2023 16:27 Report Date: 07/13/2023 17:20 At the request of: ABHINAV BOLTON Procedure: CT abdomen pelvis w con EXAM: CT chest w con, CT abdomen pelvis w con TECHNIQUE: Axial CT images were obtained of the chest, abdomen and pelvis following intravenous contrast administration. Sagittal and coronal reformatted images were also obtained. Dose reduction techniques were achieved by using automated exposure control and/or adjustment of mA and/or kV according to patient size and/or use of iterative reconstruction technique. HISTORY: Recent falls COMPARISON: 11/05/2021 FINDINGS: Neck and Axilla: No lower neck or axillary lymphadenopathy. Mediastinum and Yenifer: No hilar or mediastinal lymphadenopathy. Heart and Major Vessels: The heart appears unremarkable for size without pericardial effusion. The aorta and central pulmonary arteries are unremarkable for size. Lung Arredondo: Trachea and central bronchi are clear. Stable benign 5 mm rounded nodule medially in the right lung apex. Pleural Cavities: No significant pleural effusion. No pneumothorax. Chest Wall: Right shoulder arthroplasty noted. Chronic posttraumatic deformity of the left proximal humerus. Several old healed rib fractures bilaterally. No definite acute rib fracture. Liver: The liver is homogeneous with normal contours and normal size. Gallbladder: The gallbladder is unremarkable. There is no intra or extrahepatic biliary dilatation. Pancreas: The pancreas is homogeneous without evidence for mass lesion or inflammation. Spleen: The spleen is unremarkable without evidence for mass lesion. Adrenal glands: The adrenal glands are unremarkable Kidneys and bladder: 9.7 cm simple cyst of the lateral cortex right kidney. 6.7 cm benign simple cyst of the mid to upper pole left kidney. Punctate nonobstructing calcification of both kidneys. The ureters demonstrate normal caliber. The urinary bladder is unremarkable. GI Tract: Stomach is unremarkable. Visualized small bowel is unremarkable without evidence for obstruction or active inflammation. The appendix is unremarkable.Diverticula are seen of the colon, more significant involving the distal colon. The visualized large bowel is otherwise unremarkable. Reproductive: Unremarkable Lymph nodes: No retroperitoneal or abdominal lymphadenopathy. Vascular: The aorta is not dilated. Peritoneum: No free intraperitoneal air or fluid. No acute inflammation. Abdominal wall: Moderate superior endplate compression fracture of the L1 vertebral body appears worse than on 11/05/2021 but otherwise chronic without surrounding hematoma. Degenerative disc disease L5-S1. Subcutaneous soft tissue hematoma lateral to the left hip. CT/CT abdomen pelvis w con IMPRESSION: No acute traumatic injury to the chest, abdomen or pelvis. Chronic findings of the chest, abdomen and pelvis, as above. Electronically authenticated by: JACINTO TOSCANO Date: 07/13/2023 17:20
[2023-07-13] MEDS: 0.9 % SODIUM CHLORIDE 1,000 ML 1000 ML IV (17:00)
[2023-07-13 17:41] LABS: Bilirubin Urine NEGATIVE (NEGATIVE); Blood Urine TRACE-I (NEGATIVE); Clarity Urine CLEAR (CLEAR); Color Urine LT. YELLOW (YELLOW); Glucose Urine UA NEGATIVE (NEGATIVE); Ketones Urine NEGATIVE (NEGATIVE); Leukocyte Esterase Urine NEGATIVE (NEGATIVE); Nitrite Urine NEGATIVE (NEGATIVE); Protein Urine NEGATIVE (NEG/TRACE); Urobilinogen Urine 0.2 EU/dL (0.2-1.0); pH Urine 5.5 (5.0-9.0)
[2023-07-13 17:47] LABS: WBC Urine NONE SEEN #/HPF (NONE SEEN)
[2023-07-13 17:48] LABS: Bacteria Urine NONE SEEN #/HPF (NONE SEEN); Cast Seen? NONE SEEN #/LPF (NONE SEEN); Crystals Seen? None Seen #/HPF (None Seen); Mucus Urine NONE SEEN (NONE SEEN); RBC Urine 0-2 #/HPF (0-2); Squamous Epithelial Cell Urine NONE SEEN #/LPF (NONE/RARE)
== END 2023-07-13 18:03 | disposition home or self-care (01) ==
PROVIDERS: Emergency Provider Emergency Medicine; PCP Family Medicine
DX: Z04.3 Encounter for examination and observation following other accident (principal); W19.XXXA Unspecified fall, initial encounter; Z91.81 History of falling; I48.91 Unspecified atrial fibrillation; N40.0 Benign prostatic hyperplasia without lower urinary tract symptoms; I10 Essential (primary) hypertension; G47.33 Obstructive sleep apnea (adult) (pediatric); Z86.73 Personal history of transient ischemic attack (TIA), and cerebral infarction without residual deficits; D61.818 Other pancytopenia; Z79.01 Long term (current) use of anticoagulants; Z79.899 Other long term (current) drug therapy; Z79.82 Long term (current) use of aspirin; Z79.890 Hormone replacement therapy; F01.50 Vascular dementia, unspecified severity, without behavioral disturbance, psychotic disturbance, mood disturbance, and anxiety; Z87.81 Personal history of (healed) traumatic fracture
CPT/HCPCS: 36415; 70450; 71260; 72125; 74177; 80053; 81001; 83605; 83690; 83735; 83880; 84443; 84484; 85025; 85610; 93005; 99285; Q9967

== ENCOUNTER 2023-12-26 08:30 | Outpatient (OUT) | payer MEDICARE, SELFPAY ==
[2023-12-26 09:03] LABS: Hematocrit 24.5 % (42.0-54.0); Hemoglobin 7.9 g/dL (14.0-18.0); Mean Corpuscular HGB Conc 32.2 g/dL (29.9-35.2); Mean Corpuscular Hemoglobin 36.7 pg (25.9-34.0); Mean Platelet Volume 9.2 fL (9.5-13.5); Platelet Count 110 10^3/uL (150-450); Red Blood Count 2.15 10^6/uL (4.70-6.10); Red Cell Distribution Width 13.5 % (11.0-15.0); White Blood Count 2.8 10^3/uL (4.0-11.0)
[2023-12-26 09:56] LABS: Basophils Abs Manual 0.02 10^3/uL (0.00-0.10); Eosinophils Absolute Manual 0.28 10^3/uL (0.00-0.70); Lymphocytes Absolute Manual 1.26 10^3/uL (1.20-3.80); Monocytes Absolute Manual 0.02 10^3/uL (0.30-0.80)
[2023-12-26 09:57] LABS: Macrocytosis 3+
[2023-12-26 12:40] LABS: Alanine Aminotransferase 9 U/L (16-63); Albumin Globulin Ratio 0.5; Albumin Level 2.8 g/dL (3.4-5.0); Alkaline Phosphatase 76 U/L (46-116); Anion Gap 16.1; Aspartate Amino Transferase 8 U/L (15-37); BUN Creatinine Ratio 11.8; Bilirubin Total 0.4 mg/dL (0.2-1.0); Calcium 10.2 mg/dL (8.5-10.1); Chloride 101 mmol/L (98-107); Chol HDL Ratio 2.1; Cholesterol 71 mg/dL (<=200); Estimated GFR (African America >60 (>=60); Estimated GFR (Non-African Ame 51 (>=60); Globulin 6.1 g/dL; Glucose 97 mg/dL (74-106); HDL Cholesterol 34 mg/dL (40-60); Potassium 4.1 mmol/L (3.5-5.1); Sodium 138 mmol/L (136-145); Thyroid Stimulating Hormone 3.512 uIU/mL (0.358-3.740); Total Protein 8.9 g/dL (6.4-8.2); Triglycerides 53 mg/dL (<=150); VLDL CHOLESTEROL 10.6 mg/dL
== END 2023-12-26 08:31 | disposition home or self-care (01) ==
LOC: LAB 08:32
PROVIDERS: PCP Family Medicine; Visit Provider Family Medicine
DX: D64.9 Anemia, unspecified (principal); I10 Essential (primary) hypertension; E03.9 Hypothyroidism, unspecified; E78.5 Hyperlipidemia, unspecified
CPT/HCPCS: 36415; 80053; 80061; 84443; 85007; 85027

== ENCOUNTER 2024-01-26 20:00 | Observation (INO) | payer MEDICARE, SELFPAY ==
[2024-01-26] VITALS (18 sets, daily range): BP systolic 118–138; BP diastolic 67–75; PULSE 85–94; TEMP 36.6–36.8; O2SAT 95–97; BMI 26.3; BMI 26.1
--- OUTSIDE RECORDS SUMMARY | 2024-01-26 20:08 | XMS_ITS | CCD ---
Author Organization [facility] Care Team Providers Care Brake Lining Curer Name Role Phone Baxter, Sam E Primary Care Provider [phone] Sam Cooney Primary Care Provider Erick Wise Attending Provider Ul Santos, Israr Attending Provider Eros Lumpkin E Primary Care Provider [phone] LESTER GAO Admitting Unavailable LESTER GAO Attending Unavailable BILLY VILLA Referring Unavailable CYNDY MADISON Consulting Unavailable BRISTOL, SAM E Primary Care Unavailable UL SANTOS, ISRAR Referring Unavailable BRISTOL, SAM E Primary Care Unavailable UL SANTOS, ISRAR Referring Unavailable BRISTOL, SAM E Primary Care Unavailable Sam Cooney Attending Provider Sam Cooney Primary Care Provider [phone] Erick Wise Attending Provider [phone] Sam Cooney Primary Care Provider [phone] Erick Wise Attending Provider [phone] Sam Cooney Attending Provider [phone] Baxter, Sam E Unavailable Unavailable Unavailable SAM COONEY Primary Care Physician [phone] Unavailable Unavailable DO Sam Cooney Primary Care Provider [phone] MD Za Hernández Attending Provider DR TRUNG RUGGIERO Consulting Unavailable MARTY Jiang, DR NINO Attending Unavailable DR TRUNG RUGGIERO Admitting Unavailable BRISTOL, DR VARGAS Primary Care Unavailable ROXANNE ZAIDI Consulting Unavailable FERGUSON ., DR NINO Attending Unavailable FERGUSON ., DR NINO Admitting Unavailable FERGUSON ., DR NINO Consulting Unavailable BRISTOL, DR VARGAS Primary Care Unavailable CLARA VALADEZ Consulting Unavailable ARREGUIN, DR CONCHITA Frost Consulting Unavailable ARREGUIN, DR CONCHITA Frost Attending Unavailable BRISTOL, DR VARGAS Primary Care Unavailable LANA, DR CONCHITA Frost Admitting Unavailable EBONI PETE Consulting Unavailable FERGUSON ., DR NINO Attending Unavailable FERGUSON ., DR NINO Admitting Unavailable BRISTOL, DR VARGAS Primary Care Unavailable FERGUSON ., DR NINO Consulting Unavailable FERGUSON ., DR NINO Consulting Unavailable FERGUSON ., DR NINO Attending Unavailable FERGUSON ., DR NINO Admitting Unavailable BRISTOL, DR VARGAS Primary Care Unavailable FERGUSON ., DR NINO Consulting Unavailable FERGUSON ., DR NINO Attending Unavailable FERGUSON ., DR NINO Admitting Unavailable BRISTOL, DR VARGAS Primary Care Unavailable FERGUSON ., DR NINO Consulting Unavailable FERGUSON ., DR NINO Attending Unavailable FERGUSON ., DR NINO Admitting Unavailable BRISTOL, DR VARGAS Primary Care Unavailable MARTINE WARD Consulting Unavailable FERGUSON ., DR NINO Attending Unavailable FERGUSON ., DR NINO Admitting Unavailable FERGUSON ., DR NINO Consulting Unavailable BRISTOL, DR VARGAS Primary Care Unavailable BRISTOL, DR VARGAS Consulting Unavailable BRISTOL, DR VARGAS Attending Unavailable BRISTOL, DR VARGAS Admitting Unavailable BRISTOL, DR VARGAS Primary Care Unavailable BRISTOL, DR VARGAS Attending Unavailable BRISTOL, DR VARGAS Admitting Unavailable BRISTOL, DR VARGAS Primary Care Unavailable BRISTOL, DR VARGAS Primary Care Unavailable BRISTOL, DR VARGAS Attending Unavailable BRISTOL, DR VARGAS Admitting Unavailable Baxter, DO Vargas Primary Care Provider MD Za Hernández Attending Provider [phone] PURNIMA DAVIDSON JR Primary Care Unavailable KYLEE ARREGUIN Attending Unavailable SHERLEY CHAVEZ Attending Unavailable Baxter, DO Vargas Primary Care Provider [phone] MD Za Hernández Attending Provider Sam Cooney DO Primary Care [facility] ider Eros, Dr. Sam Harrington Primary Care Unavailable ZA HERNÁNDEZ Attending Unavailable ZA HERNÁNDEZ Referring Unavailable Eros, Dr. Sam Harrington Primary Care Unavailable HERNÁNDEZ, ZA Attending Unavailable HERNÁNDEZ, ZA Referring Unavailable Eros, Dr. Sam Harrington Primary Care Unavailable HERNÁNDEZ, ZA Attending Unavailable HERNÁNDEZ, ZA Referring Unavailable Baxter, Dr. Sam Harrington Primary Care Unavailable Arreguin, MsDeidre Hurt Attending Dima Arreguin, Ms. Loulou Hurt [facility]erring [facility], Dr. Sam Harrington Primary Care Unavailable Arreguin, MsDeidre Hurt Attending Dima Arreguin, MsDeidre Hurt Referring Unavai lab Baxter, Dr. Sam Harrington Primary Care Unavailable Baxter, Dr. Sam Harrington Primary Care Unavailable Baxter, Dr. Sam Harrington Primary Care Unavailable Baxter, Dr. Sam Harrington Primary Care Unavailable BRISTOL, SAM HARRINGTON Primary Care Unav ailable RYAN COBB Admitting Unavailable RYAN COBB Attending Unavailable SAM COONEY Primary Care Unav ailable DO Sam Cooney Primary Care Provider MD Za Hernández Attending Provider [phone] Hernández, Za Admitting Unavailable Baxter, [place] Primary Care Unavailable Hernández, Za Attending Unavailable Hernández, Za Admitting Unavailable Baxter, [place] Primary Care Unavailable Hernández, Za Attending Unavailable Hernández, Za Admitting Unavailable Baxter, [place] Primary Care Unavailable Hernández, Za Attending Unavailable Hernández, Za Admitting Unavailable Baxter, Sam Primary Care Unavailable Hernández, Za Attending Unavailable Hernández, Za Admitting Unavailable Baxter, [place] Primary Care Unavailable Hernández, Za Attending Unavailable Hernández, Za Admitting Unavailable Baxter, [place] Primary Care Unavailable Hernández, Za Attending Unavailable Baxter, [place] Primary Care Unavailable Hernández, Za Attending Unavailable Hernández, Za Admitting Unavailable HERNÁNDEZ, ZA Attending Unavailable BRISTOL, SAM NUNES LEN Primary Care Unav ailable Sam Cooney MD Primary Care Provider GUNNAR SHAFFER DO Attending UnavailGUNNAR Melendrez DO Admitting UnavailCAMILA Méndez MD Referring Unavailabl e GUNNAR SHAFFER DO Attending Unavailabl e GUNNAR SHAFFER DO Admitting Unavailabl e [place]LOT[place] BAKER Attending Unavailable Trung FERGUSON Attending Unavailable Trung FERGUSON Attending Unavailable Trung FERGUSON Attending Unavailable Trung FERGUSON Attending Unavailable [place]LOTTE BAKER Attending Unavailable RYAN COBB Referring Unavailable SAM COONEY Primary Care Unav ailable RYAN COBB Attending Unavailable SAM COONEY LEN Primary Care Unav ailable BRISTOL, SAM E Referring Unavailable BRISTOL, SAM E Primary Care Unavailable ROXANNE GIVENS Attending Unavailable BRISTOL, SAM E Referring Unavailable BRISTOL, SAM E Primary Care Unavailable Unavailable Unavailable Unavailable Medications Current Medications Medication Drug Class(es) Dates Sig (Normalized) Sig (Original) Acetaminophen (3 sources) Start: 08-28-2023 take 1 tablet by mouth every six hours as needed acetaminophen (Tylenol) tablet 650 mg End: 08-28-2023 acetaminophen (Tylenol) 500 mg tablet Take by mouth every 6 hours if needed for mild pain (1 - 3). 0 08/28/2023 Discontinued (Entered in Error) acetaminophen 325 mg / butalbital 50 mg / caffeine 40 mg oral tablet (20 sources) Barbiturate, Central Nervous System Stimulant, Methylxanthine Start: 07-09-2023 APAP/butalbital/caffeine 325 mg-50 mg-40 mg Tab Refill(s) 0 Start Date: 07/09/23 Status: Ordered Start: 01-18-2021 End: 10-22-2023 take 1 tablet by mouth three times daily as needed for pain Gezuyrlovy-ODJU-Yqxispdf 50-325-40 MG Or al Tablet TAKE 1 TABLET 3 TIMES DAILY NEEDED FOR PAIN. Quantity: 0 Refills: 0 Ordered: 18-Jul-2021 DO Start : 18-Jan-2021 Active Start: 05-19-2019 butalbital-sadie taminophen-caffeine (FIORICET, ESGIC) 50-325-40 MG per tablet Take by mouth 0 05/19/2019 Active Start: 05-19-2019 Butalbital-Sadie taminophen-Caff Active 1 TAB PO As Directed May 18, 2019 11:00pm [id number] 200 actuat albuterol 0.09 mg/actuat metered dose inhaler (3 sources) beta2-Adrenergic Agonist Start: 03-10-2023 take 1 puff(s) by inhalation every four hours as needed albuterol HFA 90 mcg/act inhaler INHALE 1 PUFF INTO THE LUNGS EVERY 4 HOURS NEEDED FOR 30 DAYS 0 03/10/2023 Active Start: 03-10-2023 End: 08-28-2023 take 2 puff(s) by inhalation every six hours albuterol 90 mcg/actuation inhaler Inhale 2 puffs every 6 hours if needed. 0 03/10/2023 08/28/2023 Discontinued (Entered in Error) apixaban 5 mg oral tablet (18 sources) Factor Xa Inhibitor Start: 08-14-2022 End: 10-22-2023 take 1 tablet by mouth in the morning Eliquis 5 MG tablet Take 5 mg by mouth in the morning and 5 mg before bedtime. 0 06/20/2023 Active aspirin 81 mg delayed release oral tablet (20 sources) Platelet Aggregation Inhibitor, Nonsteroidal Anti-inflammatory Drug Start: 08-29-2023 aspirin 81 mg EC tablet Indications: Chronic atrial fibrillation, unspecified (CMS/HCC) Take 1 tablet (81 mg) by mouth once daily. Do not start before August 29, 2023. 180 tablet 1 08/29/2023 Active Start: 08-28-2023 End: 08-28-2023 aspirin chewable tablet 324 mg Start: 12-29-2019 take 1 mg by mouth once daily aspirin 81 mg oral tablet mg tab(s), Oral, Daily, Refills(s) 0 Start Date: 12/29/19 Status: Ordered Start: 12-23-2019 End: 08-28-2023 take 81 mg by mouth once daily in the evening Aspirin Active 81 MG PO Every evening February 26, 2020 11:00pm take 1 tablet by mouth once chris y Aspirin EC 81 MG Oral Tablet Delayed Release TAKE 1 TABLET DAILY DIRECTED. Quantity: 90 Refills: 3 Ordered: 15-Jun-2022 Za Hernández MD Active aspirin 325 mg / butalbital 50 mg / caffeine 40 mg oral capsule (3 sources) Platelet Aggregation Inhibitor, Barbiturate, Nonsteroidal Anti-inflammatory Drug, Central Nervous System Stimulant, Methylxanthine Start: 02-12-2009 take 1 capsule by mouth every four hours as needed puvqxyhoqn-bumtxcs-lffbglsa (Fiorinal) 50-325-40 mg capsule Take 1 capsule by mouth every 4 hours if needed. 0 02/12/2009 Active atorvastatin (20 sources) HMG-CoA Reductase Inhibitor Start: 12-29-2019 atorvastatin Oral, Daily, Refills(s) 0 Start Date: 12/29/19 Status: Ordered Start: 12-22-2019 take 40 mg by mouth once daily at bedtime Atorvastatin Active 40 MG PO Daily at bedtime February 26, 2020 11:00pm Butapap cat 40mg PRN (14 sources) Start: 12-29-2019 Butapap cat 40 mg PRN Butapap cat 40mg PRN Start Date: 12/29/19 Status: Ordered calcium chloride 0.0014 meq/ml / potassium chloride 0.004 meq/ml / sodium chloride 0.103 meq/ml / sodium lactate 0.028 meq/ml injectable solution (1 source) Start: 08-28-2023 lactated Ringe r's infusion chlorhexidine gluconate 40 mg/ml medicated liquid soap (1 source) Start: 07-31-2023 chlorhexidine (Hibiclens) 4 % external liquid Indications: Preop examination Apply topically 2 (two) times a day as needed (preop). Shower with soap the night before surgery and morning of surgery. 236 mL 0 07/31/2023 Active clopidogrel 75 mg oral tablet (20 sources) [id number] Platelet Inhibitor Start: 08-29-2023 End: 08-28-2024 clopidogrel (Plavix) 75 mg tablet Indications: Chronic atrial fibrillation, unspecified (CMS/HCC) Take 1 tablet (75 mg) by mouth once daily for 365 doses. Do not start before August 29, 2023. 180 tablet 0 08/29/2023 08/28/2024 Active Start: 12-29-2019 clopidogrel Or al, Refills(s) 0 Start Date: 12/29/19 Status: Ordered take 1 tablet by renny th once daily Plavix 75 MG Oral Tablet TAKE 1 TABLET DAILY. Quantity: 0 Refills: 0 Ordered: 03-Aug-2021 DO Active [facility] B-12 1,000 MCG TABLET (2 sources) Start: 07-09-2023 [facility] B-12 1,000 MCG TABLET [facility] B-12 1,000 MCG TABLET Start Date: 07/09/23 Status: Ordered docusate sodium 100 mg oral capsule (1 source) Start: 08-28-2023 docusate sodiu m (Colace) capsule 100 mg doxazosin 4 mg oral tablet (20 sources) alpha-Adrenergic Misael Start: 09-11-2022 take 1 tablet by mouth once daily doxazosin (Cardura) 4 mg tablet Take 1 tablet (4 mg) by mouth once daily. 0 10/10/2023 Active Start: 08-28-2022 End: 10-22-2023 take 2 tablets by mouth once daily doxazosin (Cardura) 2 mg tablet Take 2 tablets (4 mg) by mouth once daily. 0 08/28/2022 10/22/2023 Discontinued (Dose adjustment) ferrous sulfate 325 mg delayed release oral tablet (5 sources) take 1 tablet by mouth once daily at mealtime ferrous sulfate 325 (65 Fe) MG EC tablet Take 65 mg by mouth once daily with a meal. Do not crush, chew, or split. 0 Active finasteride 5 mg oral tablet (20 sources) 5-alpha Reductase Inhibitor Start: 0 finasteride 5 mg Tab Refills(s) 0 Start Date: 12/03/23 Status: Ordered FLUoxetine 20 mg oral capsule (20 sources) Serotonin Reuptake Inhibitor Start: 1 take 1 capsule by mouth once daily FLUoxetine (PROzac) 20 mg capsule Take 1 capsule (20 mg) by mouth once daily. 0 01/21/2021 Active Start: 05-19-2019 End: 02-27-2020 take 20 mg by mouth once daily Fluoxetine Discontinued 20 MG PO Daily May 18, 2019 11:00pm February 27, 2020 3:19pm take 1 tablet by renny th once daily FLUoxetine HCl - 20 MG Oral Tablet TAKE 1 TABLET DAILY. Quantity: 0 Refills: 0 Ordered: 26-Feb-2023 DO Active folic acid 1 mg oral tablet (10 sources) Start: 04-30-2023 take 1 tablet by mouth once daily folic acid (Folvite) 1 mg tablet Take 1 tablet (1 mg) by mouth once daily. 0 08/06/2023 Active Immodium A-D 2 mg Cap (9 sources) Start: 08-29-2021 Immodium A-D 2 mg Cap Refills(s) 0 Start Date: 08/29/21 Status: Ordered ketoconazole 20 mg/ml topical cream (1 source) Azole Antifungal Start: 01-23-2023 End: 02-13-2023 apply 15 g topically once daily ketoconazole Top 2% Crm See Instructions, 15 gm, Refill(s) 0, cover affected area once daily x 2-3 weeks. if no improvement contact office., [id number], 175, cm, 01/23/23 14:14:00 EDT, Height/Length Dosing, 81, kg, 01/23/23 14:14:00 EDT, Weight Dosing Start Date: 01/23/23 Stop Date: 02/13/23 Status: Ordered levothyroxine sodium 0.125 mg oral tablet (20 sources) l-Thyroxine take 1 tablet by mouth once daily before mealtime levothyroxine (Synthroid, Levoxyl) 125 mcg tablet Take 1 tablet (125 mcg) by mouth once daily in the morning. Take before meals. 0 Active levothyroxine (S ynthroid, Levoxyl) 50 MCG tablet Take 90 mcg by mouth. 0 Active take 1 capsule by mo [facility] once daily before breakfast Levothyroxine Sodium 125 MCG Oral Capsul e TAKE 1 CAPSULE BY MOUTH EVERY MORNING BEFORE BREAKFAST ON EMPTY STOMACH Quantity: 0 Refills: 0 Ordered: 29-Aug-2022 DO Active loperamide hydrochloride 2 mg oral capsule (20 sources) Opioid Agonist Start: 09-13-2022 take 1 capsule by mouth four times daily as needed loperamide (Imodium) 2 mg capsule Take 1 capsule (2 mg) by mouth 4 times a day as needed. 0 09/13/2022 Active Start: 08-29-2021 Immodium A-D 2 mg Cap Refills(s) 0 Start Date: 08/29/21 Status: Ordered Loperamide HCl - 2 MG Oral Tablet TAKE NEEDED. Quantity: 0 Refills: 0 Ordered: 29-Aug-2022 DO Active Meclizine (20 sources) Antiemetic Start: 08-29-2021 meclizine 25 m g Tab Refills(s) 0 Start Date: 08/29/21 Status: Ordered Start: 07-29-2021 take 1 tablet by renny three times daily as needed Meclizine HCl - 25 MG Oral Tablet TAKE 1 TABLET 3 TIMES DAILY NEEDED. Quantity: 0 Refills: 0 Ordered: 30-Jul-2021 DO Start : 29-Jul-2021 Active take 1 tablet by renny th every six hours meclizine (Antivert) 25 MG tablet TAKE 1 TABLET BY MOUTH EVERY 6 HOURS NEEDD FOR 30 DAYS 0 Active memantine hydrochloride 5 mg oral tablet (10 sources) T-wwiqgc-R-aspartate Receptor Antagonist Start: 08-06-2023 take 1 tablet by mouth once daily memantine (Namenda) 5 mg tablet Take 1 tablet (5 mg) by mouth once daily. 0 08/06/2023 Active Start: 04-30-2023 take 1 tablet by renny th twice daily memantine (Namenda) 5 mg tablet Take 1 tablet (5 mg) by mouth 2 times a day. 0 08/06/2023 Active take 1 tablet by renny th once daily Memantine HCl - 5 MG Oral Tablet TAKE 1 TABLET ONCE DAILY. Quantity: 0 Refills: 0 Ordered: 11-Jun-2023 DO Active 24 hr metoprolol succinate 25 mg extended release oral tablet (11 sources) beta-Adrenergic Misael Start: 07-09-2023 take 1 tablet by mouth once daily metoprolol succinate XL (Toprol-XL) 25 mg 24 hr tablet Take 1 tablet (25 mg) by mouth once daily. 0 07/09/2023 Active Start: 02-26-2023 take 1 tablet by renny th once daily Metoprolol Succinate ER 25 MG Oral Tablet Extended Release 24 Hour TAKE 1 TABLET DAILY. Quantity: 90 Refills: 3 Ordered: 26-Feb-2023 Za Hernández MD Start : 26-Feb-2023 Active Start: 02-15-2023 take 1 tablet by renny th every twenty-four hours in the morning metoprolol succinate XL (Toprol-XL) 50 MG 24 hr tablet Take 50 mg by mouth in the morning. 0 02/15/2023 Active Start: 11-17-2022 take 1 tablet by renny th once daily Metoprolol Succinate ER 50 MG Oral Tablet Extended Release 24 Hour TAKE 1 TABLET EVERY DAY Quantity: 90 Refills: 3 Ordered: 17-Nov-2022 Za Hernández MD Start : 17-Nov-2022 Active new start ondansetron 4 mg disintegrating oral tablet (6 sources) Serotonin-3 Receptor Antagonist ondansetron ODT (Zof ran-ODT) 4 MG disintegrating tablet 1 (one) time each day at the same time. 0 Active take 1 tablet by renny th once daily as needed Ondansetron HCl - 4 MG Oral Tablet TAKE 1 TABLET Daily prn Quantity: 0 Refills: 0 Ordered: 28-Aug-2022 DO Active ondansetron ODT (Zofran-ODT) disintegrating tablet 4 mg (1 source) Start: 08-28-2023 take 1 tablet by mouth every eight hours as needed ondansetron ODT (Zofran-ODT) disintegrating tablet 4 mg pantoprazole (1 source) Proton Pump Inhibitor Start: 08-29-2023 pantoprazole (ProtoNix) EC tablet 40 mg spironolactone 25 mg oral tablet (20 sources) Aldosterone Antagonist Start: 08-14-2022 spironolactone 25 mg Tab Refills(s) 0 Start Date: 07/09/23 Status: Ordered tamsulosin hydrochloride 0.4 mg oral capsule (20 sources) alpha-Adrenergic Misael Start: 01-20-2020 take 0.4 mg by mouth twice daily Tamsulosin Active 0.4 MG PO Twice daily April 06, 2020 11:00pm thyroid ([facility]) 90 mg oral tablet (20 sources) Start: 02-27-2020 take 1 tablet by mouth once daily in the morning Thyroid (Pork) (C[place]by Thyroid) 90 mg tablet Active 90 MG PO Every morning February 26, 2020 11:00pm Start: 12-29-2019 Crosby Thyroid Oral, Daily, Refills(s) 0 Start Date: 12/29/19 Status: Ordered Start: 05-19-2019 End: 02-27-2020 take 60 mg by mouth once daily Thyroid (Pork) Disconti nued 60 MG PO Daily May 18, 2019 11:00pm February 27, 2020 3:18pm traMADol hydrochloride 50 mg oral tablet (1 source) Opioid Agonist Start: 08-28-2023 take 1 tablet by mouth every six hours as needed traMADol (Ultram) tablet 50 mg traZODone hydrochloride 50 mg oral tablet (1 source) Serotonin Reuptake Inhibitor Start: 04-17-2023 take 1 tablet by mouth once daily at bedtime as needed traZODone (Desyrel) 50 MG tablet TAKE 1 TABLET BY MOUTH EVERY DAY AT BEDTIME NEEDED FOR 1 DAY 0 04/17/2023 Active vitamin b12 1 mg oral tablet (8 sources) Vitamin B12 Start: 07-09-2023 take 1 tablet by mouth once daily cyanocobalamin (Vitamin B-12) 1,000 mcg tablet Take 1 tablet (1,000 mcg) by mouth once daily. 0 07/09/2023 Active End: 10-22-2023 cyanocobalamin (Vitamin B-12 ) 1,000 mcg tablet Take 100 mcg by mouth once daily. 0 10/22/2023 Discontinued (Duplicate order) End: 10-22-2023 take 1 tablet by mouth once daily cyanocobalamin (Vitamin B-12) 250 mcg tablet Take 1 tablet (250 mcg) by mouth once daily. 0 10/22/2023 Discontinued (Dose adjustment) Completed/Discontinued Medications Medication Drug Class(es) Dates Sig (Normalized) Sig (Original) acetaminophen 325 mg / oxyCODONE hydrochloride 5 mg oral tablet (5 sources) Opioid Agonist Start: 05-13-2021 take 1 tablet by mouth every six hours as needed for pain oxyCODONE-Acetam inophen 5-325 MG Oral Tablet TAKE 1 TABLET EVERY 6 HOURS NEEDED FOR PAIN. Quantity: 0 Refills: 0 Ordered: 31-May-2021 DO Start : 13-May-2021 Active amLODIPine 5 mg oral tablet (20 sources) Dihydropyridine Calcium Channel Misael Start: 04-29-2020 End: 08-28-2023 take 1 tablet by mouth once daily amLODIPine Besylate 10 MG Oral Tablet TAKE 1 TABLET DAILY. Quantity: 90 Refills: 3 Ordered: 19-Sep-2022 Za Hernández MD Start : 29-Apr-2020 Active Start: 02-27-2020 take 5 mg by mouth o nce daily in the morning Amlodipine Active 5 MG PO Every morning February 26, 2020 11:00pm amoxicillin 500 mg oral capsule (7 sources) Penicillin-class Antibacterial Start: 02-05-2023 End: 08-28-2023 amoxicillin (Amoxil) 500 mg capsule Take 4 capsules (2,000 mg) by mouth. Prior to procedure 0 02/05/2023 08/28/2023 Discontinued (Entered in Error) amoxicillin ([place] xil) 500 mg capsule Take 1 capsule (500 mg) by mouth. Take 2 tablets 1 hr prior to dental procedure, take 2 tablets post 1 hr dental procedure 0 Active take 2 tablets by mo uth every hour, then take 2 tablets by mouth every hour Amoxicillin 500 MG Oral Capsule take 2 tablets 1hr prior to dental procedure, take 2 tablets 1 hr post detal procedure Quantity: 4 Refills: 0 Ordered: 11-Jun-2023 DO Active ciprofloxacin 500 mg oral tablet (1 source) Quinolone Antimicrobial Start: 01-23-2022 take 1 tablet by mouth once daily Cipro 500 mg Tab 500 mg = 1 tab(s), Oral, Daily, Take 1 tablet the day before the procedure and 1 tablet after the procedure, # 2 tab(s), Refills(s) 0, Pharmacy: [facility]/pharmacy #[id number], 175, cm, 01/23/22 13:07:00 EDT, Height/Length Dosing, 83, kg, 01/23/22 13:07:00 EDT, W... Start Date: 01/23/22 Status: Ordered cyclobenzaprine hydrochloride 10 mg oral tablet (5 sources) Muscle Relaxant take 1 tablet by mouth three times daily as needed Cyclobenzaprine HCl - 10 MG Oral Tablet TAKE 1 TABLET 3 TIMES DAILY NEEDED. Quantity: 0 Refills: 0 Ordered: 09-Oct-2022 DO Active dicyclomine hydrochloride 20 mg oral tablet (12 sources) Anticholinergic Start: 05-19-2019 End: 04-07-2020 take 20 mg by mouth twice daily Dicyclomine Discontinued 20 MG PO Twice daily May 18, 2019 11:00pm April 07, 2020 10:47am doxycycline hyclate 100 mg oral capsule (3 sources) Tetracycline-class Drug take 1 capsule by mouth once daily Doxycycline Hyclate 100 MG Oral Capsule TAKE 1 CAPSULE DAILY UNTIL FINISHED. Quantity: 0 Refills: 0 Ordered: 09-Oct-2022 DO Active ibuprofen 400 mg oral tablet (2 sources) Nonsteroidal Anti-inflammatory Drug End: 08-28-2023 take 1 tablet by mouth every six hours as needed ibuprofen 400 mg tablet Take 1 tablet (400 mg) by mouth every 6 hours if needed for moderate pain (4 - 6). 0 08/28/2023 Discontinued (Entered in Error) iohexol (OMNIPaque) 350 mg iodine/mL solution 70 mL (2 sources) Start: 12-28-2023 End: 12-28-2023 iohexol (OMNIPaque) 350 mg iodine/mL solution 70 mL lidocaine hydrochloride 0.02 mg/mg topical gel (4 sources) Antiarrhythmic, Amide Local Anesthetic Start: 12-01-2022 End: 12-01-2022 Glydo 2% topical gel with applicator 11 mL 0.2 gm, 10 mL, Topical, As Directed, 30 mL, Refill(s) 6, Apply as needed prior to self dilation, [facility]/pharmacy #[id number], 175, cm, 11/03/22 13:03:00 EST, Height/Length Dosing, 82.8, kg, 11/03/22 13:03:00 EST, Weight Dosing Start Date: 12/01/22 Stop Date: 12/01/22 Status: Ordered Start: 12-01-2022 End: 12-01-2022 Glydo 2% topical gel with ap plicator 11 mL 0.2 gm, 10 mL, Topical, As Directed, 30 mL, Refill(s) 6, Apply as needed prior to self dilation, [facility]/pharmacy #[id number], 175, cm, 11/03/22 13:03:00 EST, Height/Length Dosing, 82.8, kg, 11/03/22 13:03:00 EST, Weight Dosing Start Date: 12/01/22 Stop Date: 12/01/22 Status: Ordered Start: 12-01-2022 End: 12-01-2022 Glydo 2% topical gel with ap plicator 11 mL 0.2 gm, 10 mL, Topical, As Directed, 30 mL, Refill(s) 6, Apply as needed prior to self dilation, [facility]/pharmacy #[id number], 175, cm, 11/03/22 13:03:00 EST, Height/Length Dosing, 82.8, kg, 11/03/22 13:03:00 EST, Weight Dosing Start Date: 12/01/22 Stop Date: 12/01/22 Status: Ordered Start: 12-01-2022 End: 12-01-2022 Glydo 2% topical gel with ap plicator 11 mL 0.2 gm, 10 mL, Topical, As Directed, 30 mL, Refill(s) 6, Apply as needed prior to self dilation, [facility]/pharmacy #[id number], 175, cm, 11/03/22 13:03:00 EST, Height/Length Dosing, 82.8, kg, 11/03/22 13:03:00 EST, Weight Dosing Start Date: 12/01/22 Stop Date: 12/01/22 Status: Ordered losartan potassium 50 mg oral tablet (20 sources) Angiotensin 2 Receptor Misael Start: 06-20-2023 take 1 tablet by mouth once daily Losartan Potassium 50 MG Oral Tablet TAKE 1 TABLET DAILY. Quantity: 90 Refills: 3 Ordered: 20-Jun-2023 Za Hernández MD Start : 20-Jun-2023 Active Start: 05-19-2019 take 1 mg by mouth once daily losartan 100 mg Tab mg tab(s), Oral, Daily, Refills(s) 0 Start Date: 12/29/19 Status: Ordered take 0.5 tablet by m outh once daily losartan (Cozaar) 100 mg tablet Take 0.5 tablets (50 mg) by mouth once daily. 0 Active meloxicam 15 mg oral tablet (20 sources) Nonsteroidal Anti-inflammatory Drug Start: 05-19-2019 End: 02-27-2020 take 15 mg by mouth once daily Meloxicam Discontinued 15 MG PO Daily May 18, 2019 11:00pm February 27, 2020 3:19pm 24 hr tolterodine tartrate 2 mg extended release oral capsule (20 sources) Cholinergic Muscarinic Antagonist Start: 12-03-2023 tolterodine 2 mg Cap-ER 2 mg = 1 cap(s), Oral, As Directed, Take one cap in the morning and one at dinnertime., # 60 cap(s), Refills(s) 11, Pharmacy: [facility]/pharmacy #[id number], 175, cm, 12/03/23 15:27:00 EDT, Height/Length Dosing, 80, kg, 12/03/23 15:27:00 EDT, Weight Dosing Start Date: 12/03/23 Status: Ordered Start: 07-09-2023 take 1 capsule by mo uth every twenty-four hours in the morning tolterodine LA (Detrol LA) 2 MG 24 hr capsule Take 2 mg by mouth in the morning. 0 07/09/2023 Active Start: 01-23-2022 take 1 capsule by mo uth every other day tolterodine 4 mg Cap-ER 4 mg = 1 cap(s), Oral, Every other day, # 30 cap(s), Refills(s) 6, Pharmacy: [facility]/pharmacy #[id number], 175, cm, 01/23/22 13:07:00 EDT, Height/Length Dosing, 83, kg, 01/23/22 13:07:00 EDT, Weight Dosing Start Date: 01/23/22 Status: Ordered Start: 01-23-2022 take 1 capsule by mouth once d aily tolterodine 4 mg Cap-ER 4 mg = 1 cap(s), Oral, Daily, # 30 cap(s), Refills(s) 6, Pharmacy: [facility]/pharmacy #[id number], 175, cm, 01/23/22 13:07:00 EDT, Height/Length Dosing, 83, kg, 01/23/22 13:07:00 EDT, Weight Dosing Start Date: 01/23/22 Status: Ordered Start: 09-27-2020 take 1 capsule by mouth once d aily tolterodine 2 mg Cap-ER 2 mg = 1 cap(s), Oral, Daily, # 30 cap(s), Refills(s) 11, Pharmacy: [facility]/pharmacy #[id number], 175, cm, 07/09/23 11:06:00 EDT, Height/Length Dosing, 79.5, kg, 07/09/23 11:06:00 EDT, Weight Dosing Start Date: 07/09/23 Status: Ordered Vitamin B-12 TABS (2 sources) Vitamin B-12 TAB S TAKE 1 TABLET DAILY. Quantity: 0 Refills: 0 Ordered: 11-Jun-2023 DO Active Problems Active Problems Problem Classification Problem Date Documented Da te Episodic/Chronic Acquired foot deformities (8 sources) Acquired left hallux valgus; Translations: [Hallux valgus (acquired), left foot] Onset: 3 09-11-2023 Chronic Acquired foot deformities (8 sources) Acquired right hallux valgus; Translations: [Hallux valgus (acquired), right foot] Onset: 3 09-11-2023 Chronic Acute cerebrovascular disease (4 sources) Embolic stroke; Translations: [Cerebrovascular accident] Onset: 0 12-21-2019 Chronic Cardiac dysrhythmias (20 sources) Paroxysmal atrial fibrillation; Translations: [Paroxysmal atrial fibrillation with RVR] Onset: 3 08-22-2023 Chronic Cardiac dysrhythmias (4 sources) Sinus bradycardia; Translations: [Other specified cardiac dysrhythmias] Episodic Coronary atherosclerosis and other heart disease (19 sources) History of myocardial infarction; Translations: [Old myocardial infarction] Onset: 2 12-29-2019 Chronic Deficiency and other anemia (2 sources) Anemia; Translations: [Anemia, unspecified] Episodic Disorders of lipid metabolism (20 sources) Mixed hyperlipidemia; Translations: [Mixed hyperlipidemia] Onset: 2 08-10-2023 Chronic Esophageal disorders (4 sources) Gastroesophageal reflux disease; Translations: [Gastro-esophageal reflux disease without esophagitis] Onset: 3 09-11-2023 Chronic Essential hypertension (20 sources) Benign essential hypertension; Translations: [Benign essential hypertension] Onset: 1 12-29-2019 Chronic Genitourinary symptoms and ill-defined conditions (20 sources) Urge incontinence; Translations: [Incontinence without sensory awareness] Onset: 2 Chronic Hyperplasia of prostate (20 sources) Benign prostatic hyperplasia; Translations: [Hypertrophy (benign) of prostate without urinary obstruction and other lower urinary tract symptom (LUTS)] Onset: 2 Chronic Inflammatory conditions of male genital organs (1 source) Chronic prostatitis; Translations: [CHRONIC PROSTATITIS] Onset: 2 Chronic Mood disorders (7 sources) Major depressive disorder, single episode, unspecified; Translations: [Mood disorder] Onset: 2 10-22-2023 Chronic Osteoarthritis (5 sources) Arthritis of right acromioclavicular joint; Translations: [Primary osteoarthritis, right shoulder] Onset: 3 09-11-2023 Chronic Other aftercare (14 sources) Treatment changed; Translations: [Long-term (current) use of other medications] Episodic Other aftercare (20 sources) Drug therapy finding; Translations: [Long-term (current) use of other medications] Episodic Other and unspecified benign neoplasm (12 sources) History of polyp of colon; Translations: [Personal history of colonic polyps] 05-20-2019 Episodic Other circulatory disease (20 sources) History of cardiovascular surgery; Translations: [Other specified cardiac device in situ] Onset: 3 08-10-2023 Chronic Other circulatory disease (20 sources) Presence of other cardiac implants and grafts; Translations: [Implantable loop recorder present] Onset: 3 08-10-2023 Chronic Other circulatory disease (9 sources) H/O: atrial fibrillation; Translations: [Atrial fibrillation] Episodic Other circulatory disease (4 sources) Low blood pressure; Translations: [Hypotension, unspecified] Episodic Other circulatory disease (4 sources) Orthostatic hypotension; Translations: [Orthostatic hypotension] Episodic Other connective tissue disease (2 sources) Recurrent falls ; Translations: [History of fall] Episodic Other diseases of bladder and urethra (5 sources) Male urethral stricture; Translations: [Unspecified urethral stricture, male, unspecified site] Onset: 3 Episodic Other diseases of bladder and urethra (8 sources) Urethral stricture; Translations: [Unspecified urethral stricture, male, unspecified site] Onset: 3 11-03-2022 Episodic Other ear and sense organ disorders (1 source) Sensorineural hearing loss, bilateral; Translations: [Sensorineural hearing loss, bilateral] Onset: 3 07-31-2023 Chronic Other gastrointestinal disorders (1 source) Irritable bowel syndrome without diarrhea; Translations: [IRRITABLE BOWEL SYND W/O DIARRHEA] Onset: 2 Chronic Other gastrointestinal disorders (1 source) Irritable bowel syndrome; Translations: [Irritable bowel syndrome without diarrhea] Onset: 3 07-31-2023 Chronic Other inflammatory condition of skin (7 sources) Intertrigo; Translations: [Erythema intertrigo] Onset: 3 Episodic Other nervous system disorders (1 source) Chronic pain; Translations: [Other chronic pain] Onset: 3 07-31-2023 Chronic Other nervous system disorders (1 source) (Idiopathic) normal pressure hydrocephalus; Translations: [(Idiopathic) normal pressure hydrocephalus] Onset: 4 Chronic Other non-traumatic joint disorders (1 source) Pain of left shoulder joint; Translations: [Pain in left shoulder] 10-22-2023 Episodic Other nutritional; endocrine; and metabolic disorders (16 sources) Overweight in adulthood with body mass index of 25 or more but less than 30; Translations: [Overweight] Episodic Residual codes; unclassified (3 sources) Body mass index 20-24 - normal; Translations: [Body Mass Index between 19-24, adult] Episodic Residual codes; unclassified (1 source) Pain, unspecified; Translations: [Pain, unspecified] Onset: 4 Episodic Screening and history of mental health and substance abuse codes (20 sources) Ex-smoker; Translations: [Personal history of tobacco use] Onset: 2 10-22-2023 Episodic Comment on above: Quit 1960s; Spondylosis; intervertebral disc disorders; other back problems (5 sources) Spondylosis without myelopathy or radiculopathy, cervical region; Translations: [Lumbar discitis] Onset: 3 Chronic Substance-related disorders (18 sources) Smoker; Translations: [Nicotine dependence, unspecified, uncomplicated] Onset: 3 05-26-2020 Chronic Comment on above: Added secondary to d ocumentation in Social History. Added secondary to d ocumentation in Social History. Thyroid disorders (1 source) Hypothyroidism, unspecified; Translations: [HYPOTHYROIDISM UNSPECIFIED] Onset: 2 Chronic Transient cerebral ischemia (20 sources) Transient cerebral ischemia; Translations: [Unspecified transient cerebral ischemia] Onset: 3 08-10-2023 Chronic Unclassified (1 source) LOW BACK PAIN, UNSPECIFIED; Translations: [LOW BACK PAIN, UNSPECIFIED] Onset: 3 Unclassified (1 source) CONTACT W/AND (SUSP) EXPOS COVID-19; Translations: [CONTACT W/AND (SUSP) EXPOS COVID-19] Onset: 2 Unclassified (1 source) Encounter for adjustment and management of other cardiac device; Translations: [Encounter for adjustment and management of other cardiac device] Onset: 3 Unclassified (2 sources) laao Onset: 3 Unclassified (1 source) Consult Onset: 4 Past or Other Problems Problem Classification Problem Date Documented Date Episodic/Chronic Conditions associated with dizziness or vertigo (6 sources) Dizziness and giddiness; Translations: [Disorder of inner ear] Onset: 04-08-2022 Episodic Fracture of upper limb (11 sources) Closed fracture of proximal left humerus; Translations: [Unspecified fracture of upper end of left humerus, initial encounter for closed fracture] Onset: 06-15-2023 09-11-2023 Episodic Genitourinary symptoms and ill-defined conditions (20 sources) Delay when starting to pass urine; Translations: [Incomplete emptying of bladder] Onset: 04-24-2022 05-26-2020 Episodic Malaise and fatigue (20 sources) Fatigue; Translations: [Other malaise and fatigue] Onset: 08-10-2023 08-10-2023 Episodic Mood disorders (5 sources) Mood disorders Onset: 06-15-2022 11-06-2022 Other aftercare (1 source) half-way (current) use of anticoagulants; Translations: [CARTON FORMING MACHINE TENDER CURRNT USE ANTICOAGULANTS] Onset: 09-07-2022 Episodic Other aftercare (1 source) long term care administrator (current) use of aspirin; Translations: [GROUP HOME CURRENT USE OF ASPIRIN] Onset: 09-07-2022 Episodic Other aftercare (1 source) Other technician terminal and repeater (current) drug therapy; Translations: [OTH GROUP HOME CURRENT DRUG THERAPY] Onset: 09-07-2022 Episodic Other circulatory disease (1 source) Personal history of transient ischemic attack (TIA), and cerebral infarction without residual deficits; Translations: [PERS HX TIA AND CI NO RESID DEFICIT] Onset: 04-11-2022 Episodic Other connective tissue disease (1 source) Subscapularis tendinitis; Translations: [Other enthesopathies, not elsewhere classified] Onset: 08-20-2017 07-31-2023 Episodic Other diseases of bladder and urethra (1 source) Unspecified urethral stricture, male, meatal; Translations: [UNSP URETHRAL STRICTURE MALE MEATAL] Onset: 09-07-2022 Episodic Other eye disorders (1 source) Unspecified strabismus; Translations: [UNSPECIFIED STRABISMUS] Onset: 04-11-2022 Episodic Other nervous system disorders (4 sources) Abnormal gait; Translations: [Unspecified abnormalities of gait and mobility] Onset: 07-31-2023 09-11-2023 Episodic Other nervous system disorders (4 sources) Impairment of balance; Translations: [Other abnormalities of gait and mobility] Onset: 07-31-2023 09-11-2023 Episodic Other nervous system disorders (1 source) Finding related to ability to move; Translations: [Other abnormalities of gait and mobility] Onset: 07-31-2023 07-31-2023 Episodic Other non-traumatic joint disorders (6 sources) Pain in left shoulder; Translations: [Pain in joint, shoulder region] Onset: 07-31-2023 09-11-2023 Episodic Other non-traumatic joint disorders (4 sources) Shoulder joint pain; Translations: [Pain in unspecified shoulder] Onset: 07-31-2023 09-11-2023 Episodic Other non-traumatic joint disorders (4 sources) Derangement of left shoulder joint; Translations: [Joint derangement, unspecified] Onset: 07-31-2023 09-11-2023 Episodic Spondylosis; intervertebral disc disorders; other back problems (1 source) Radiculopathy, cervical region; Translations: [RADICULOPATHY CERVICAL REGION] Onset: 02-21-2022 Episodic Unclassified (5 sources) Onset: 08-22-2023 08-22-2023 Results Test Name Value Interpretation Reference Range Facility CT WATCHMAN FULL CONTRASTon 12-28-2023 CT WATCHMAN FULL CONTRAST Interpreted By: Carlitos Aguilera, STUDY: CT WATCHMAN FULL CONTRAST; 12/28/2023 10:40 am INDICATION: Signs/Symptoms:A-fib, Post-Watchman. COMPARISON: CT dated 08/28/2023 ACCESSION NUMBER(S): [id number] ORDERING CLINICIAN: RYAN COBB TECHNIQUE: Using multi detector CT technology,axial imaging with prospective gating was performed of the chest following the intravenous administration of contrast material. A low-osmolar contrast agent was used ( 70 mL Omnipaque 350 ). For optimization of anatomic evaluation, multiplanar reconstruction, maximum intensity projections, and advanced 3-D off-line postprocessing were performed on a dedicated stand-alone workstation under the direct supervision of the interpreting physician. CT Dose-Length Product (DLP): 1229 mGy*cm CT Dose Reduction Employed: Yes (Prospective triggering, iterative reconstruction) FINDINGS: POTENTIAL STUDY LIMITATIONS: None CORONARY ARTERIES: CORONARY ANATOMY: There is normal origin of the coronary arteries. Right dominant system. Moderate coronary artery calcifications are seen. Please note,the study is not optimized for evaluation of coronary arteries. CARDIAC CHAMBERS: The cardiac chambers demonstrate normal atrioventricular and ventriculoarterial concordance, and systemic and pulmonary venous return. LEFT ATRIUM: Dilated (26.2-cm2). Status post Watchman device placement in the left atrial appendage. No evidence for peridevice thrombus or leak. The left atrial appendage is not opacified with contrast material. RIGHT ATRIUM: Normal size (21-cm2) VENTRICLES: The left and right ventricles appear normal in appearance, although accurate size measurements are not possible on systolic phase imaging. INTERATRIAL SEPTUM: Intact. INTERVENTRICULAR SEPTUM: Intact. AORTIC VALVE: The aortic valve is trileaflet in morphology. No valvular thickening or calcifications. MITRAL VALVE: There appears to be prolapse of the anterior and likely posterior valve leaflets. The leaflets also appear mildly thickened. THORACIC AORTA: The thoracic aorta normal in course and caliber.There is no evidence for acute aortic pathology, such as dissection, intramural hematoma, or contained rupture. The aortic arch is not included on this examination. PERICARDIUM: There is no pericardial effusion seen. CHEST: The trachea and central airways are patent. No endobronchial lesion is seen. The bilateral lungs are clear without evidence of focal consolidation, pleural effusion, or pneumothorax. There are scattered solid sub-6 mm pulmonary nodules. For example, there is a 4 mm nodule in the right middle lobe on series 404, image 244. There is no intrathoracic lymphadenopathy as per CT criteria.However, there are calcified medistinal and bilateral hilar lymph nodes seen, likely representing sequela of remote granulomatous process. Visualized esophagus appears within normal limits as seen. UPPER ABDOMEN: Punctate calcifications in the spleen are compatible with prior granulomatous disease. CHEST WALL AND OSSEOUS STRUCTURES: Leadless device within the left chest wall subcutaneous fat. No acute osseous pathology.There are no suspicious osseous lesions within included chest. IMPRESSION: 1. Status post Watchman device placement in the left atrial appendage. No evidence for peridevice thrombus or leak. 2. Dilated left atrium. 3. Moderate coronary artery calcifications are seen. Please note,the study is not optimized for evaluation of coronary arteries. 4. Findings suggestive of mitral valve prolapse. Correlate with echocardiography. 5. Sub-6 mm pulmonary nodules, likely benign. Instructions: No further follow-up is required, however, if the patient has high risk factors for primary lung malignancy, follow-up noncontrast CT scan chest in 12 months may be obtained. (Aron Mon et al., Guidelines for management of incidental pulmonary nodules detected on CT images: From the Fleischner Society 2017, Radiology. 2017 [place];284 (1):228-243.) [email or web address] MACRO: None Signed by: Carlitos Aguilera 12/28/2023 11:32 AM Dictation workstation: [id number] [facility] No Panel Informationon 12-27 1. Status post Watchman device placement in the left atrial appendage. No evidence for peridevice thrombus or leak. 2. Dilated left atrium. 3. Moderate coronary artery calcifications are seen. Please note,the study is not optimized for evaluation of coronary arteries. 4. Findings suggestive of mitral valve prolapse. Correlate with echocardiography. 5. Sub-6 mm pulmonary nodules, likely benign. Instructions: No further follow-up is required, however, if the patient has high risk factors for primary lung malignancy, follow-up noncontrast CT scan chest in 12 months may be obtained. (Aron Mon et al., Guidelines for management of incidental pulmonary nodules detected on CT images: From the Fleischner Society 2017, Radiology. 2017 Mar;284 (1):228-243.) [email or web address] MACRO: None Signed by: Carlitos Aguilera 12/28/2023 11:32 AM Dictation workstation: [id number] [facility]AL Interpreted By: Carlitos Aguilera, STUDY: CT WATCHMAN FULL CONTRAST; 12/28/2023 10:40 am INDICATION: Signs/Symptoms:A-fib, Post-Watchman. COMPARISON: CT dated 08/28/2023 ACCESSION NUMBER(S): [id number] ORDERING CLINICIAN: RYAN COBB TECHNIQUE: Using multi detector CT technology,axial imaging with prospective gating was performed of the chest following the intravenous administration of contrast material. A low-osmolar contrast agent was used ( 70 mL Omnipaque 350 ). For optimization of anatomic evaluation, multiplanar reconstruction, maximum intensity projections, and advanced 3-D off-line postprocessing were performed on a dedicated stand-alone workstation under the direct supervision of the interpreting physician. CT Dose-Length Product (DLP): 1229 mGy*cm CT Dose Reduction Employed: Yes (Prospective triggering, iterative reconstruction) FINDINGS: POTENTIAL STUDY LIMITATIONS: None CORONARY ARTERIES: CORONARY ANATOMY: There is normal origin of the coronary arteries. Right dominant system. Moderate coronary artery calcifications are seen. Please note,the study is not optimized for evaluation of coronary arteries. CARDIAC CHAMBERS: The cardiac chambers demonstrate normal atrioventricular and ventriculoarterial concordance, and systemic and pulmonary venous return. LEFT ATRIUM: Dilated (26.2-cm2). Status post Watchman device placement in the left atrial appendage. No evidence for peridevice thrombus or leak. The left atrial appendage is not opacified with contrast material. RIGHT ATRIUM: Normal size (21-cm2) VENTRICLES: The left and right ventricles appear normal in appearance, although accurate size measurements are not possible on systolic phase imaging. INTERATRIAL SEPTUM: Intact. INTERVENTRICULAR SEPTUM: Intact. AORTIC VALVE: The aortic valve is trileaflet in morphology. No valvular thickening or calcifications. MITRAL VALVE: There appears to be prolapse of the anterior and likely posterior valve leaflets. The leaflets also appear mildly thickened. THORACIC AORTA: The thoracic aorta normal in course and caliber.There is no evidence for acute aortic pathology, such as dissection, intramural hematoma, or contained rupture. The aortic arch is not included on this examination. PERICARDIUM: There is no pericardial effusion seen. CHEST: The trachea and central airways are patent. No endobronchial lesion is seen. The bilateral lungs are clear without evidence of focal consolidation, pleural effusion, or pneumothorax. There are scattered solid sub-6 mm pulmonary nodules. For example, there is a 4 mm nodule in the right middle lobe on series 404, image 244. There is no intrathoracic lymphadenopathy as per CT criteria.However, there are calcified medistinal and bilateral hilar lymph nodes seen, likely representing sequela of remote granulomatous process. Visualized esophagus appears within normal limits as seen. UPPER ABDOMEN: Punctate calcifications in the spleen are compatible with prior granulomatous disease. CHEST WALL AND OSSEOUS STRUCTURES: Leadless device within the left chest wall subcutaneous fat. No acute osseous pathology.There are no suspicious osseous lesions within included chest. [facility] Carlitos Aguilera MD - 12/28/2023 Interpreted By: Carlitos Aguilera, STUDY: CT WATCHMAN FULL CONTRAST; 12/28/2023 10:40 am INDICATION: Signs/Symptoms:A-fib, Post-Watchman. COMPARISON: CT dated 08/28/2023 ACCESSION NUMBER(S): [id number] ORDERING CLINICIAN: RYAN COBB TECHNIQUE: Using multi detector CT technology,axial imaging with prospective gating was performed of the chest following the intravenous administration of contrast material. A low-osmolar contrast agent was used ( 70 mL Omnipaque 350 ). For optimization of anatomic evaluation, multiplanar reconstruction, maximum intensity projections, and advanced 3-D off-line postprocessing were performed on a dedicated stand-alone workstation under the direct supervision of the interpreting physician. CT Dose-Length Product (DLP): 1229 mGy*cm CT Dose Reduction Employed: Yes (Prospective triggering, iterative reconstruction) FINDINGS: POTENTIAL STUDY LIMITATIONS: None CORONARY ARTERIES: CORONARY ANATOMY: There is normal origin of the coronary arteries. Right dominant system. Moderate coronary artery calcifications are seen. Please note,the study is not optimized for evaluation of coronary arteries. CARDIAC CHAMBERS: The cardiac chambers demonstrate normal atrioventricular and ventriculoarterial concordance, and systemic and pulmonary venous return. LEFT ATRIUM: Dilated (26.2-cm2). Status post Watchman device placement in the left atrial appendage. No evidence for peridevice thrombus or leak. The left atrial appendage is not opacified with contrast material. RIGHT ATRIUM: Normal size (21-cm2) VENTRICLES: The left and right ventricles appear normal in appearance, although accurate size measurements are not possible on systolic phase imaging. INTERATRIAL SEPTUM: Intact. INTERVENTRICULAR SEPTUM: Intact. AORTIC VALVE: The aortic valve is trileaflet in morphology. No valvular thickening or calcifications. MITRAL VALVE: There appears to be prolapse of the anterior and likely posterior valve leaflets. The leaflets also appear mildly thickened. THORACIC AORTA: The thoracic aorta normal in course and caliber.There is no evidence for acute aortic pathology, such as dissection, intramural hematoma, or contained rupture. The aortic arch is not included on this examination. PERICARDIUM: There is no pericardial effusion seen. CHEST: The trachea and central airways are patent. No endobronchial lesion is seen. The bilateral lungs are clear without evidence of focal consolidation, pleural effusion, or pneumothorax. There are scattered solid sub-6 mm pulmonary nodules. For example, there is a 4 mm nodule in the right middle lobe on series 404, image 244. There is no intrathoracic lymphadenopathy as per CT criteria.However, there are calcified medistinal and bilateral hilar lymph nodes seen, likely representing sequela of remote granulomatous process. Visualized esophagus appears within normal limits as seen. UPPER ABDOMEN: Punctate calcifications in the spleen are compatible with prior granulomatous disease. CHEST WALL AND OSSEOUS STRUCTURES: Leadless device within the left chest wall subcutaneous fat. No acute osseous pathology.There are no suspicious osseous lesions within included chest. IMPRESSION: 1. Status post Watchman device placement in the left atrial appendage. No evidence for peridevice thrombus or leak. 2. Dilated left atrium. 3. Moderate coronary artery calcifications are seen. Please note,the study is not optimized for evaluation of coronary arteries. 4. Findings suggestive of mitral valve prolapse. Correlate with echocardiography. 5. Sub-6 mm pulmonary nodules, likely benign. Instructions: No further follow-up is required, however, if the patient has high risk factors for primary lung malignancy, follow-up noncontrast CT scan chest in 12 months may be obtained. (Aron Mon et al., Guidelines for management of incidental pulmonary nodules detected on CT images: From the Fleischner Society 2017, Radiology. 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 Proteinuria Your Care Team Attending Physician - MARTY BETANCOURT, Trung Frost Primary Care Physician - SAM COONEY DO This Is Your Medications List tolterodine (tolterodine 2 mg Cap-ER) Contact prescribing physician if questions or concerns APAP/butalbital/caffei ne (APAP/butalbital/caffe ine 325 mg-50 mg-40 mg Tab) Misc Prescription ([facility]S B-12 1,000 MCG TABLET) Non-Formulary Medication (Butapap cat 40mg PRN) atorvastatin clopidogrel (clopidogrel 75 mg Tab) doxazosin (doxazosin 4 mg Tab) finasteride (finasteride 5 mg Tab) fluoxetine (FLUoxetine 20 mg Cap) folic acid (folic acid 1 mg Tab) losartan (losartan 100 mg Tab) meclizine (meclizine 25 mg Tab) memantine (memantine 5 mg Tab) spironolactone (spironolactone 25 mg Tab) thyroid desiccated (Crosby Thyroid) Procedures Performed Urethral dilatation (11/03/2022), TURP - Transurethral resection of prostate (08/31/2022), Cystoscopy (01/24/2022), Colonoscopy, Shoulder replacement. Discharge Vitals Heart Rate (Peripheral) 76 Respiratory Rate 16 Blood Pressure 137/74 Height 175 cm Height 69 in Weight 80 kg Weight 176 lb BMI 26.12 What to do next You Need to Schedule the Following Appointments Follow Up with MARTY BETANCOURT, JOSH Martin When: Comments: 6 mos (increase med dosage) Where: [facility] [address] , [place] [address] [phone] Medications What How Much When Instructions Changed tolterodine (tolterodine 2 mg Cap-ER) 1 Capsules By Mouth As Directed Take one cap in the morning and one at dinnertime. Pickup at [facility]/pharmacy #[id number] Unchanged APAP/ butalbital/ caffeine (APAP/ butalbital/ caffeine 325 mg-50 mg-40 mg Tab) Contact prescribing physician if questions or concerns Unchanged atorvastatin By Mouth Every day Contact prescribing physician if questions or concerns Unchanged clopidogrel (clopidogrel 75 mg Tab) Contact prescribing physician if questions or concerns Unchanged doxazosin (doxazosin 4 mg Tab) Contact prescribing physician if questions or concerns Unchanged finasteride (finasteride 5 mg Tab) Contact prescribing physician if questions or concerns Unchanged fluoxetine (FLUoxetine 20 mg Cap) Contact prescribing physician if questions or concerns Unchanged folic acid (folic acid 1 mg Tab) Contact prescribing physician if questions or concerns Unchanged losartan (losartan 100 mg Tab) By Mouth Every day Contact prescribing physician if questions or concerns Unchanged meclizine (meclizine 25 mg Tab) Contact prescribing physician if questions or concerns Unchanged memantine (memantine 5 mg Tab) Contact prescribing physician if questions or concerns Unchanged Misc Prescription (CVS B-12 1,000 MCG TABLET) 0 Contact prescribing physician if questions or concerns Unchanged Non-Formulary Medication (Butapap cat 40mg PRN) Contact prescribing physician if questions or concerns Unchanged spironolactone (spironolactone 25 mg Tab) Contact prescribing physician if questions or concerns Unchanged thyroid desiccated (Crosby Thyroid) By Mouth Every day Contact prescribing physician if questions or concerns Pharmacy Information [facility] #[id number]: [address] [place], [place] [phone] Allergies No Known Allergies Problems Ongoing - Any problem that you are currently receiving treatment for. BPH with urinary obstruction Enuresis Hesitancy Hypertension Incomplete bladder emptying Intertrigo mild [place] (myocardial infarction) Nocturia Protein in urine Proteinuria Smoker Urethral meatal stenosis Urge incontinence Urinary incontinence without sensory awareness Urinary retention Patient Survey You may receive a survey via text or e-mail asking about your office visit. Please share your experience with us by completing your survey. We appreciate your feedback and thank you for choosing us for your care. Education Materials Overactive Bladder, Adult Overactive bladder is a condition in which a person has a sudden and frequent need to urinate. A person might also leak urine if he or she cannot get to the bathroom fast enough (urinary incontinence). Sometimes, symptoms can interfere with work or social activities. What are the causes? Overactive bladder is associated with poor nerve signals between your bladder and your brain. Your bladder may get the signal to empty before it is full. You may also have very sensitive muscles that make your bladder squeeze too soon. This condition may also be caused by other factors, such as: ? Medical conditions: ? Urinary tract infection. ? Infection of nearby tissues. ? Prostate enlargement. ? Bladder stones, inflammation, or tumors. ? Diabetes. ? Muscle or nerve weakness, especially fr (more content not included)... Normal [facility] Patient Educationon 12-03-19 Patient Education Obstetrics and Gynecology Overactive Bladder, Adult Overactive bladder is a condition in which a person has a sudden and frequent need to urinate. A person might also leak urine if he or she cannot get to the bathroom fast enough (urinary incontinence). Sometimes, symptoms can interfere with work or social activities. What are the causes? Overactive bladder is associated with poor nerve signals between your bladder and your brain. Your bladder may get the signal to empty before it is full. You may also have very sensitive muscles that make your bladder squeeze too soon. This condition may also be caused by other factors, such as: ? Medical conditions: ? Urinary tract infection. ? Infection of nearby tissues. ? Prostate enlargement. ? Bladder stones, inflammation, or tumors. ? Diabetes. ? Muscle or nerve weakness, especially from these conditions: ? A spinal cord injury. ? Stroke. ? Multiple sclerosis. ? Parkinson's disease. ? Other causes: ? Surgery on the uterus or urethra. ? Drinking too much caffeine or alcohol. ? Certain medicines, especially those that eliminate extra fluid in the body (diuretics). ? Constipation. What increases the risk? You may be at greater risk for overactive bladder if you: ? Are an older adult. ? Smoke. ? Are going through menopause. ? Have prostate problems. ? Have a neurological disease, such as stroke, dementia, Parkinson's disease, or multiple sclerosis (MS). ? Eat or drink alcohol, spicy food, caffeine, and other things that irritate the bladder. ? Are overweight or obese. What are the signs or symptoms? Symptoms of this condition include a sudden, strong urge to urinate. Other symptoms include: ? Leaking urine. ? Urinating 8 or more times a day. ? Waking up to urinate 2 or more times overnight. How is this diagnosed? This condition may be diagnosed based on: ? Your symptoms and medical history. ? A physical exam. ? Blood or urine tests to check for possible causes, such as infection. You may also need to see a health care provider who specializes in urinary tract problems. This is called a urologist. How is this treated? Treatment for overactive bladder depends on the cause of your condition and whether it is mild or severe. Treatment may include: ? Bladder training, such as: ? Learning to control the urge to urinate by following a schedule to urinate at regular intervals. ? Doing Kegel exercises to strengthen the pelvic floor muscles that support your bladder. ? Special devices, such as: ? Biofeedback. This uses sensors to help you become aware of your body's signals. ? Electrical stimulation. This uses electrodes placed inside the body (implanted) or outside the body. These electrodes send gentle pulses of electricity to strengthen the nerves or muscles that control the bladder. ? Women may use a plastic device, called a pessary, that fits into the vagina and supports the bladder. ? Medicines, such as: ? Antibiotics to treat bladder infection. ? Antispasmodics to stop the bladder from releasing urine at the wrong time. ? Tricyclic antidepressants to relax bladder muscles. ? Injections of botulinum toxin type A directly into the bladder tissue to relax bladder muscles. ? Surgery, such as: ? A device may be implanted to help manage the nerve signals that control urination. ? An electrode may be implanted to stimulate electrical signals in the bladder. ? A procedure may be done to change the shape of the bladder. This is done only in very severe cases. Follow these instructions at home: Eating and drinking ? Make diet or lifestyle changes recommended by your health care provider. These may include: ? Drinking fluids throughout the day and not only with meals. ? Cutting down on caffeine or alcohol. ? Eating a healthy and balanced diet to prevent constipation. This may include: ? Choosing foods that are high in fiber, such as beans, whole grains, and fresh fruits and vegetables. ? Limiting foods that are high in fat and processed sugars, such as fried and sweet foods. Lifestyle ? Lose weight if needed. ? Do not use any products that contain nicotine or tobacco. These include cigarettes, chewing tobacco, and vaping devices, such as e-cigarettes. If you need help quitting, ask your health care provider. General instructions ? Take [id number]-[id number] and prescription medicines only as told by your health care provider. ? If you were prescribed an antibiotic medicine, take it as told by your health care provider. Do not stop taking the antibiotic even if you start to feel better. ? Use any implants or pessary as told by your health care provider. ? If needed, wear pads to absorb urine leakage. ? Keep a log to track how much and when you drink, and when you need to urinate. This will help your health care provider monitor yo (more content not included)... Normal [facility] Urology Office/Clinic Noteon 12-03-2023 Urology Office/Clinic Note Chief Complaint 4m to starting Tolterodine HPI Staff 5 month f/u. Dx: BPH without urinary obstruction (TURP 08/31/22), urethral meatal stenosis and proteinuria. Finasteride 5mg QD and Tolterodine 2mg ER QD. Did start taking Tolterodine at night, no improvements, realized pt was to take med in the AM. Since switching, Less wetting at night, (enuresis). Daughter is concerned that pt is incontinent, but does not change pants/depends. Denies pain/burning and visible blood in urine. Daughter states pt had UTI in September. History of Present Illness Tests reviewed: reviewed UA I have reviewed the previous health record information and history for this patient from Dr. Ferguson. I have reviewed and verified the staff HPI to be accurate for this encounter. Review of Systems PHQ Score Initial Depression Screen Score: 0 SCORE ROS - Provider Constitutional: denies weight loss, denies hot flashes. Eyes: denies eye problems. Gastrointestinal: denies nausea, denies vomiting. Cardiovascular: denies chest pain or angina. Integumentary: no dryness Musculoskeletal: denies musculoskeletal symptoms. ENMT: denies otolaryngeal symptoms. Respiratory: no shortness of breath. Heme/Lymph: denies easy bleeding tendency, denies easy bruising tendency. Psychiatric: no confusion, no anxiety. Genitourinary: See HPI. Physical Exam Vitals & Measurements HR: 76(Peripheral) RR: 16 BP: 137/74 HT: 69 in HT: 175 cm WT: 80 kg WT: 176 lb BMI: 26.12 General Appearance: alert, no distress, well nourished, well developed male. Genitourinary: normal scrotum, normal testes, normal urethra, normal epididymis, normal vas deferens/spermatic cord. Flank Pain: none. Bladder: nonpalpable. Assessment/Plan Pt here with his daughter today who serves as primary historian. 1. Enuresis (R32: Unspecified urinary incontinence) Pt previously was unsure if he was taking Tolterodine so pt was restarted on Tolterodine ER 2 mg qd. Was taking this at night but continued to have leakage. Switched to taking Tolterodine in the morning and this did improve sxs some. Wears depends. Pt was in same depends for 3 days and had crystalized urine . Pt's daughter reports he had a UTI in September. Also reports pt is stubborn and has dementia so is not always compliant with medications. Discussed importance of being compliant with medications to prevent leakage and to keep depends dry. Also discussed increasing Tolterodine given pt continues to have leakage. -Increase Tolterodine ER 2mg qAM to 2mg bid (at morning and night). New rx sent to [facility]. -Double void maneuvers 2. BPH with urinary obstruction (N40.1: Benign prostatic hyperplasia with lower urinary tract symptoms) S/p Cysto/UD, TURP 08/31/22. Taking Finasteride 5mg qd. Good flow. Feels he empties. Did advise pt to take time with urination to ensure he empties and help prevent infections. -Cont Finasteride as above -Double void maneuvers 3. Urethral meatal stenosis (N35.919: Unspecified urethral stricture, male, unspecified site) S/p Cysto 11/03/22 - Tight meatus sealed shut. No longer self dilating. Not a problem at this time. 4. Proteinuria (R80.9: Proteinuria, unspecified) Chronic. UA today shows 30 mg/dL protein. Follow-up With When Contact Information MARTY BETANCOURT, Trung Frost, URL [facility] [address], [place] [address] [phone] Additional Instructions: 6 mos (increase med dosage) Patient Education Overactive Bladder, Adult I, Marcela Lake, personally scribed for Dr. Ferguson on 12/03/2023 16:15:53. . Documentation recorded by the scribe, Marcela Lake, accurately reflects the services(s) I performed and decisions made by me. Authenticated by Dr. Ferguson on 12/03/2023 16:17:42. Problem List/Past Medical History Ongoing BPH with urinary obstruction Enuresis Hesitancy Hypertension Incomplete bladder emptying Intertrigo mild [place] (myocardial infarction) Nocturia Protein in urine Proteinuria Smoker Urethral meatal stenosis Urge incontinence Urinary incontinence without sensory awareness Urinary retention Historical No qualifying data Procedure/Surgical History Urethral dilatation (11/03/2022), TURP - Transurethral resection of prostate (08/31/2022), Cystoscopy (01/24/2022), Colonoscopy, Shoulder replacement. Medications APAP/butalbital/caffei ne 325 mg-50 mg-40 mg Tab Crosby Thyroid, Oral, Daily atorvastatin, Oral, Daily Butapap cat 40mg PRN clopidogrel 75 mg Tab CVS B-12 1,000 MCG TABLET, 0 doxazosin 4 mg Tab finasteride 5 mg Tab FLUoxetine 20 mg Cap folic acid 1 mg Tab losartan 100 mg Tab, Oral, Daily meclizine 25 mg Tab memantine 5 mg Tab spironolactone 25 mg Tab tolterodine 2 mg Cap-ER, 2 mg= 1 cap(s), Oral, Daily, 11 refills Allergies No Known Allergies Social History Alcohol - Low Risk, 12/29/2019 Tobacco Never (less than 100 in lifetime) Tobac (more content not included)... Normal [facility] Comment on above: Result Comment: Elec tronically Signed By: Trung FERGUSON MD\.br\Date and Time Signed: 12/03/23 16:17 EDT\.br\Electronically Co-Signed By: Marcela Lake\.br\Date and Time Co-Signed: 12/03/23 16:16 EDT Educational Interpreter Details- Texton 11-20-2023 Educational Interpreter Details- Text Educational Interpreter Details Entered On: 11/20/2023 9:57 EST Performed On: 11/20/2023 9:56 EST by Sahra Lizarraga RN Educational Interpreter Details Transport Mode Order Detail EV : Wheelchair Isolation Precautions RTF : Communication CONSTANT Order, 11/15/2023 13:48:00 EST, Constant Order, Physical Therapy, schedule Total Joint Class, Ordered History and Physical by House Physician, 11/15/2023 13:48:00 EST, 11/15/2023 13:48:00 EST, Ordered Obtain Consent, 11/15/2023 13:48:00 EST, Obtain Blood Transfusion Consent, Ordered Isolation Precaution Order Detail EV : NONE IV Order Detail - EV : Yes Oxygen Order Detail EV : No Order Detail EV : No Pacemaker Order Detail : 0 Educational Interpreter Details Review Status : Initial Review Nurse Collects Blood Specimens : No Sahra Lizarraga RN - 11/20/2023 9:56 EST Normal [facility] Utilization Review Noteon Utilization Review Note EXT REC DAY 0. C ASE CANCELLED DUE TO LOW H&H. Normal [facility] Utilization Review Noteon Utilization Review Note Reg as EXT REC, no documents. NOT IPO Still no information from [facility] yet. Still no information from [facility] yet. Approved for outpatient per [facility]. Normal [facility] HEMOon 11-16-2023 Nucleated RBC 0 /100WBC Normal [facility] Comment on above: Performed By: #### 1 [id number], [id number] ####[facility] [address] [place] [address] Medical Director: Eh Gould MD MAN DIFFon 11-16-[address] 0.12 x1000 Normal 0.00-0.70 [facility] Comment on above: Performed By: #### 1 , [id number] ####[facility] [address] [place] [address] Medical Director: Eh Gould MD Absolute Eos Ct 0.07 x1000 Normal 0.00-0.50 [facility] Comment on above: Performed By: #### 1 , [id number] ####[facility] [address] [place] [address] Medical Director: Eh Gould MD Absolute Lymph Ct 1.10 x1000 Low 1.20-4.80 [facility] Comment on above: Performed By: #### 1 [id number], [id number] ####[facility] [address] [place] [address] Medical Director: Eh Gould MD Absolute Neutrophil Ct 1.22 x1000 Low 1.40-8.80 [facility] Comment on above: Performed By: #### 1 54224, [id number] ####[facility] [address] [place] [address] Medical Director: Eh Gould MD Absolute Seg Ct 1.10 x1000 Low 1.40-8.80 [facility] Comment on above: Performed By: #### 1 04465, [id number] ####[facility] [address] [place] [address] Medical Director: Eh Gould MD Band form neutrophils/100 WBC (Bld) 5 % Normal [facility] Comment on above: Performed By: #### 1 26769, [id number] ####[facility] [address] [place] [address] Medical Director: Eh Gould MD Eosinophils/100 WBC (Bld) 3 % Normal [facility] Comment on above: Performed By: #### 1 , [id number] ####[facility] [address] [place] [address] Medical Director: Eh Gould MD Lymphocytes/100 WBC (Bld) 46 % Normal [facility] Comment on above: Performed By: #### 1 , [id number] ####[facility] [address] [place] [address] Medical Director: Eh Gould MD Macrocytosis Moderate Normal [facility] Comment on above: Performed By: #### 1 , [id number] ####[facility] [address] [place] [address] Medical Director: Eh Gould MD Segmented neutrophils/100 WBC (Bld) 46 % Normal [facility] Comment on above: Performed By: #### 1 16614, [id number] ####[facility] [address] [place] [address] Medical Director: Eh Gould MD ABORHon 11-15-2023 ABORH Interpretation Positive Normal [facility] Comment on above: Performed By: #### C D:[id number], CD:[id number] #### [facility] [address] [place] [address] Network Operations Lead: Eh Gould MD Patient History Check Previous Hx Normal So [facility] Comment on above: Performed By: #### C D:[id number], CD:[id number] #### [facility] [address] [place] [address] Network Operations Lead: Eh Gould MD VS 0.8% a cells 0 Normal [facility] Comment on above: Performed By: #### C D:[id number], [id number] #### [facility] [address] [place] [address] Network Operations Lead: Eh Gould MD VS 0.8% b cells 3+ Normal [facility] Comment on above: Performed By: #### C D:[id number], CD:[id number] #### [facility] [address] [place] [address] Network Operations Lead: Eh Gould MD VS Anti-A Unit 4+ Normal [facility] Comment on above: Performed By: #### C D:[id number], CD:[id number] #### [facility] [address] [place] [address] Network Operations Lead: Eh Gould MD VS Anti-B Unit 0 Normal [facility] Comment on above: Performed By: #### C D:[id number], CD:[id number] #### [facility] [address] [place] [address] Network Operations Lead: Eh Gould MD VS Anti-D Unit 4+ Normal [facility] Comment on above: Performed By: #### C D:[id number], CD:[id number] #### [facility] [address] [place] [address] Network Operations Lead: Eh Gould MD ABSCon 11-15-2023 ABSC Final Interp Negative Normal [facility] Comment on above: Performed By: #### C D:[id number], CD:[id number] #### [facility] [address] [place] [address] Network Operations Lead: Eh Gould MD Pt Hx check done? Yes Normal [facility] Comment on above: Performed By: #### C D:[id number], CD:[id number] #### [facility] [address] [place] [address] Network Operations Lead: Eh Gould MD VS SCI Gel 0 Normal [facility] Comment on above: Performed By: #### C D:[id number], CD:[id number] #### [facility] [address] [place] [address] Network Operations Lead: Eh Gould MD VS SCII Gel 0 [facility] Comment on above: Performed By: #### C D:[id number], CD:[id number] #### [facility] [address] [place] [address] Network Operations Lead: Eh Gould MD DVT/VTE Risk Factor-Texton 0 11-15-2023 DVT/VTE Risk Factor-Text DVT/VTE Risk Factor Entered On: 11/15/2023 13:49 EST Performed On: 11/15/2023 13:48 EST by Mary Ellen Price RN DVT/VTE Risk Factor SCD's Ordered : Yes Antiembolism Device : SCDs, knee high Risk Factors=2 : 61 years or older, Major Surgery (Surgery over 30 min or stay over 24hrs.) Risk Factors=3 : Total Joint Replacement Total Risk score : 7 VTE Risk Level : Score 5 or more = VERY HIGH RISK Mary Ellen Price RN - 11/15/2023 13:48 EST Normal [facility] HEMOon 11-15-2023 DIFF? Yes Normal [facility] Comment on above: Performed By: #### 1 [id number], [id number] ####[facility] [address] [place] [address] [id number] Medical Director: Eh Gould MD DxH Actions See Notes Abnormal [facility] Comment on above: Result Comment: Scan for RBC Morphology Scan Slide. Perform manual diff if needed. SNV Performed By: #### 1 , [id number] ####[facility] [address] [place] [address] Medical Director: Eh Gould MD Erythrocyte distribution width (RBC) [Ratio] 14.5 % Normal 11.5-14.5 [facility] Comment on above: Performed By: #### 1 , [id number] ####[facility] [address] [place] [address] Medical Director: Eh Gould MD Hematocrit (Bld) [Volume fraction] 25.3 % Low 41.0-52.0 [facility] Comment on above: Performed By: #### 1 , [id number] ####[facility] [address] [address] [facility] [facility] Director: Eh Gould MD Hemoglobin (Bld) [Mass/Vol] 8.7 g/dL Low 13.5-17.5 [facility] Comment on above: Performed By: #### 1 , 038000 ####[facility] [address] [place] [address] Medical Director: Eh Gould MD Instr WBC 2.4 Normal [facility] Comment on above: Performed By: #### 1 , 147861 ####[facility] [address] [place] [address] Medical Director: Eh Gould MD MCH (RBC) [Entitic mass] 38.3 pg High 27.0-34.0 [facility] Comment on above: Performed By: #### 1 , 014268 ####[facility] [address] [place] [address] Medical Director: Eh Gould MD MCHC (RBC) [Mass/Vol] 34.6 g/dL Normal 32.0-37.0 [facility] Comment on above: Performed By: #### 1 , 115101 ####[facility] Mtalbcnz44149 [place] [address] Medical Director: Eh Gould MD MCV (RBC) [Entitic vol] 110.6 fL High 80.0-100.0 S [facility] Comment on above: Performed By: #### 1 , [id number] ####[facility] Pgxaqtzz03984 [place] [address] Medical Director: Eh Gould MD Platelet 142 x10 Low 150-450 [facility] Comment on above: Performed By: #### 1 , 978741 ####[facility] Mkvneymz85026 [place] [address] Medical Director: Eh Gould MD Platelet mean volume (Bld) [Entitic vol] 6.4 fL Low 7.4-10.4 [facility] Comment on above: Performed By: #### 1 , 981581 ####[facility] Ceewnmxw20835 [place] [address] Medical Director: Eh Gould MD RBC 2.29 x10 Low 4.70-6.10 [facility] Comment on above: Result Comment: Note : RBC morphology is normal unless otherwise stated. Evaluation performed only if differential is requested. Performed By: #### 1 33041, 367634 ####[facility] Vkenxuzv56462 [place] [address] Medical Director: Eh Gould MD WBC 2.4 x10 Low 4.5-11.0 [facility] Comment on above: Performed By: #### 1 60109, 466954 ####[facility] Nneutdsi72563 [place] [address] Medical Director: Eh Gould MD Preadmission Testing Progres s Noteon 11-15-2023 Preadmission Testing Progress Note Faxed CBC results to Dr. Shaffer' s office. Called office and left a voice message regarding CBC results being faxed and a call back phone number. Dr. Shaffer's office phoned back, read CBC results from 11/15/23 and 10/12/23. She stated she will talk to Dr. Shaffer. No Orders received during the phone conversation. LOW [facility] Normal [facility] Preadmission Testing Progress Note PREADMISSION TESTING (PAT) INSTRUCTION SHEET [ X] Bring your Surgery Guide with you on day of surgery [ X ] Read and complete your Discharge Planning Checklist [ X ] Take only highlighted medications on morning of surgery [ X ] Stop all vitamins and herbal supplements 7 days prior to surgery (unless otherwise instructed) [ x ] Call Surgeon when to stop taking the following: [x ] Blood thinner - Plavix hold 5 days prior to surgery and [address] Cobb [ x ] Anti-inflammatory/ aspirin - continue but not day of surgery [ x ] Total Joint Class or Physical Therapy: not ordered [ x ] Bring on day of surgery: [ x ] Bi-pap machine (if prescribed) [ x ] Green blood band (in Surgery Guide) [ x ] Advanced Directive [ ] Additional instructions: *Any major change in your medical condition, that was treated by your primary physician or the result of an Emergency Room visit, must be reported to your surgeon. Normal [facility] UAon 11-15-2023 Appearance, U Clear Normal [facility] Comment on above: Performed By: #### 1 53508 #### [facility] [address] [place] [address] Network Operations Lead: Eh Gould MD Bilirubin, U Negative Normal Negative [facility] Comment on above: Performed By: #### 1 26845 #### [facility] [address] [place] [address] Network Operations Lead: Eh Gould MD Blood, U Small Abnormal Negative [facility] Comment on above: Performed By: #### 1 39011 #### [facility] [address] [place] [address] Network Operations Lead: Eh Gould MD Color, U Yellow Normal [facility] Comment on above: Performed By: #### 1 04575 #### [facility] [address] [place] [address] Network Operations Lead: Eh Gould MD Glucose Qual, U Negative Normal Negative [facility] Comment on above: Performed By: #### 1 39101 #### [facility] [address] [place] [address] Network Operations Lead: Eh Gould MD Ketones, U Negative Normal Negative [facility] Comment on above: Performed By: #### 1 22839 #### [facility] [address] [place] [address] Network Operations Lead: Eh Gould MD Leukocyte Esterase, U Negative Normal Negative [facility] Comment on above: Performed By: #### 1 62713 #### [facility] [address] [place] [address] Network Operations Lead: Eh Gould MD Mucous, U Occasional Normal [facility] Comment on above: Performed By: #### 1 97122 #### [facility] [address] [place] [address] 24[address] Network Operations Lead: Eh Gould MD Nitrite, U Negative Normal Negative [facility] Comment on above: Performed By: #### 1 95641 #### [facility] [address] [place] [address] 85196 Network Operations Lead: Eh Gould MD pH, U 5.0 Normal 4.5-8.0 [facility] Comment on above: Performed By: #### 1 75463 #### [facility] [address] [place] [address] Network Operations Lead: Eh Gould MD Protein, U Negative Normal Negative [facility] Comment on above: Performed By: #### 1 99091 #### [facility] [address] [place] [address] Network Operations Lead: Eh Gould MD RBC/HPF, U <1 Normal 0-3 [facility] Comment on above: Performed By: #### 1 74173 #### [facility] [address] [place] [address] Network Operations Lead: Eh Gould MD Specific [place], U 1.014 Normal 1.001-1.035 [facility] Comment on above: Performed By: #### 1 83250 #### [facility] [address] [place] [address] 169[address] Network Operations Lead: Eh Gould MD Squamous Epithelial Cells, U <1 Normal [facility] Comment on above: Performed By: #### 1 46966 #### [facility] [address] [place] [address] 20[address] Network Operations Lead: Eh Gould MD U MICRO Indicated Normal [facility] Comment on above: Performed By: #### 1 32390 #### [facility] [address] [place] [address] Network Operations Lead: Eh Gould MD Urobilinogen Qual, U <2.0 mg/dl Normal <2.0 mg/dl [facility] Comment on above: Result Comment: EU/d l and mg/dl are equivalent units. Performed By: #### 1 03546 #### [facility] [address] [place] [address] Network Operations Lead: Eh Gould MD WBC/HPF, U 2 #/HPF Normal 0-5 [facility] Comment on above: Performed By: #### 1 79528 #### [facility] [address] [place] [address] Network Operations Lead: Eh Gould MD Preadmission Testing Progres s Noteon 11-14-2023 Preadmission Testing Progress Note Registration called P.A.T.,stating the pt. may not show and reschedule. Pt did not show for appointment. Called Dr. Shaffer's office. Spoke to Alexandra, she stated the CT foe watchman check is scheduled for the 20 of November and is needed for the clearance to be completed. Normal [facility] ABORHon 10-15-2023 ABORH CK Interp Positive Normal [facility] Comment on above: Performed By: #### C D:[id number], [id number] #### [facility] [address] [place] [address] Network Operations Lead: Eh Gould MD Anti-A recheck 4+ [facility] Comment on above: Performed By: #### C D:[id number], CD:[id number] #### [facility] [address] [place] [address] Network Operations Lead: Eh Gould MD Anti-B recheck 0 [facility] Comment on above: Performed By: #### C [id number], CD:[id number] #### [facility] [address] [place] [address] Network Operations Lead: Eh Gould MD Anti-D recheck 3+ [facility] Comment on above: Performed By: #### C D:[id number], CD:[id number] #### [facility] [address] [place] [address] Network Operations Lead: Eh Gould MD Pathologist Reviewon 024 Diff Review Interp Review of peripheral smear reveals macrocytic RBCs. The platelets are adequate in number with normal morphology. There is leukopenia with absolute lymphocytopenia and monocytopenia. The white blood cell morphology is unremarkable. A definitive etiology of the macrocytosis could not be determined by the histologic examination of peripheral blood smear. There is no increase in schistocytes or microspherocytes. Other conditions associated with macrocytosis such as medication, Vitamin B12, folate deficiency, endocrinopathies, EtOH use, monoclonal gammopathy, hyperlipidemia or copper deficiency need to be ruled out. Clinical correlation is recommended. Normal [facility] Comment on above: Order Comment: Added on by Discern Expert Rule. Result Comment: CAMILA ZEPEDA (Electronic Signature) Date Verified 10/15/23 Performed By: #### 9 803434, 315236, 3617038, 353249, 230412, 192638 ####[facility] Z[address]qrge[address]32 [place] [address] Medical Director: Eh Gould MD Preadmission Testing Progres s Noteon 10-15-2023 Preadmission Testing Progress Note Yesterday I spoke with Terrence Mane CNP regarding Patient having Watchman placed in 09/15. Cardiac Clearance will be required per Terrence Mane CNP. Clearance request letter faxed to Dr Za Hernández's office. Dr Hernández's office (Arti) notified of clearance request and fax. I also spoke with Arti regarding instruction on Plavix and Aspirin. Arti stated she would make Dr Hernández aware that Plavix and Asprin instruction will be needed. Voicemail left today, 10/12/23, for Dr Hernández's office (Arti) regarding status of clearance. I spoke with Patient who stated they are in route to [facility] and delayed due to weather conditions. Patient to be make CHART ONLY and report given to Chioma Hager RN. Follow up on communication to Dr. Shaffer's office from Chioma Hager. No response for . Patient on surgery schedule for tomorrow. Note reviewed patient is not cleared for surgery per Dr. Hernández. See scan with fax communication to . Obtained voice mail all available numbers for office, radiation control specialist and PA. Left messages on voice mail for call back to discuss. Spoke to Martine in Dr. Shaffer's office. Notified patient is not cleared for surgery tomorrow by Dr. Hernández. Also PAT is incomplete with no H&P. No appointments available for today. Patient is still on surgery schedule for tomorrow. States she will speak to personally. Received callback from Consuelo at Dr. Shaffer's office. Confirmed receipt of fax from that patient is not cleared for tomorrow's surgery. Agreed to discuss with patient and and notify surgery scheduling. Normal [facility] Utilization Review Noteon Utilization Review Note Reg as PRE ADMIT , no documents, NOT IPO. I will send to , needs changed to EXT. email sent to [facility] and surgery scheduling to change this to ext rec Surgery schedule updated to Ext Rec [facility] still has not updated registration, email was already sent to them by [facility]. Same as above. 10/16/23 LEFT REVERESE TOTAL SHOULDER REPLACEMENT CANCELED PER [facility]. CANCELLED. Normal [facility] ABORHon 10-12-2023 ABORH Interpretation Positive Normal [facility] Comment on above: Performed By: #### C D:[id number], CD:[id number] #### [facility] [address] [id number] Network Operations Lead: Eh Gould MD Patient History Check No Previous Hx Normal [facility] Comment on above: Result Comment: 09/24 10:30 [id number] ABO Recheck to be ordered on admit. Surgery Date: 10/16/23 Performed By: #### C D:[id number], CD:[id number] #### [facility] [address] [place] [address] Network Operations Lead: Eh Gould MD VS 0.8% a cells 0 Normal [facility] Comment on above: Performed By: #### C D:[id number], CD:[id number] #### [facility] [address] [place] [address] Network Operations Lead: Eh Gould MD VS 0.8% b cells 3+ [facility] Comment on above: Performed By: #### C D:[id number], CD:[id number] #### [facility] [address] [place], [place] [address] Network Operations Lead: Eh Gould MD VS Anti-A Unit 4+ [facility] Comment on above: Performed By: #### C D:[id number], CD:[id number] #### [facility] [address] [place] [address] Network Operations Lead: Eh Gould MD VS Anti-B Unit 0 [facility] Comment on above: Performed By: #### C D:[id number], CD:[id number] #### [facility] [address] [place] [address] Network Operations Lead: Eh Gould MD VS Anti-D Unit 4+ [facility] Comment on above: Performed By: #### C D:[id number], CD:[id number] #### [facility] [address] [place] [address] 07[address] Network Operations Lead: Eh Gould MD ABSCon 10-12-2023 ABSC Final Interp Negative Normal [facility] Comment on above: Performed By: #### C D:[id number], CD:[id number] ####[facility] Pfavfimm30920 [place] [address] Medical Director: Eh Gould MD Pt Hx check done? Yes Normal [facility] Comment on above: Performed By: #### C D:[id number], CD:[id number] ####[facility] Himfzpsy21630 [place] [address] Medical Director: Eh Gould MD VS SCI Gel 0 [facility] Comment on above: Performed By: #### C D:[id number], CD:[id number] ####[facility] Kacsmpqa94084 [place] [address] [facility] Director: Eh Gould MD VS SCII Gel 0 [facility] Comment on above: Performed By: #### C D:[id number], CD:[id number] ####[facility] [address] [address] Medical Director: Eh Gould MD APTTon 10-12-2023 aPTT Coag (Bld) [Time] 29.5 s Normal 27.0-38.0 [facility] Comment on above: Result Comment: APTT Interpretation: This test has not been validated to monitor heparin therapy. APTT test is used as an initial test for suspected bleeding disorder. Anti-Xa UFH test is used to monitor heparin therapy. Performed By: #### 9 146012, 428396, 4358656, 616238, 739305, 948882 ####[facility] [address]obbe[address]87 [place] [address] Medical Director: Eh Gould MD AUTO DIFFon 10-12-2023 Baso Count 0.02 x1000 Normal 0.00-0.20 [facility] Comment on above: Performed By: #### 9 414755, 493950, 3542771, 254925, 550751, 224793 ####[facility] H[address]mpw457[address] [place], [place] [address]) [phone] Director: Eh Gould MD Basos % 0.8 % Normal [facility] Comment on above: Performed By: #### 9 050762, 323159, 1787644, 354050, 169281, 554564 ####[facility] Djhjiqxb25921 [place], [place] [address]) [phone] Director: Eh Gould MD Eos Count 0.21 x1000 Normal 0.00-0.50 [facility] Comment on above: Performed By: #### 9 031161, 950209, 5378371, 261919, 976249, 499703 ####[facility] Pjpwrcce84711 [place], [place] [address]) [phone] Director: Eh Gould MD Eosinophils/100 WBC (Bld) 7.5 % Normal [facility] Comment on above: Performed By: #### 9 196169, 174086, 6939146, 526949, 867844, 385426 ####[facility] Nl[address]qzau47039 [place], [place] [address]) [phone] Director: Eh Gould MD Lymph Count 1.03 x1000 Low 1.20-4.80 [facility] Comment on above: Performed By: #### 9 509866, 102923, 9983814, 411692, 237204, 500468 ####[facility] Ecr[address]z19239 [place] [address] Medical Director: Eh Gould MD Lymphocytes/100 WBC (Bld) 36.5 % Normal [facility] Comment on above: Performed By: #### 9 868732, 949127, 8755184, 690332, 998922, 477408 ####[facility] K[address]zfvlr44881 [place] [address] Medical Director: Eh Gould MD H[place]man Count 0.08 x1000 Low 0.10-1.00 [facility] Comment on above: Performed By: #### 9 913481, 282178, 6450043, 148461, 710637, 144081 ####[facility] Waecjlnq02817 [place] [address] Medical Director: Eh Gould MD Monocytes/100 WBC (Bld) 2.8 % Normal S [facility] Comment on above: Performed By: #### 9 548768, 669126, 8996795, 827442, 243952, 806542 ####[facility] Gocshdfv24898 [place] [address] Medical Director: Eh Gould MD Neutrophil Count (ANC) 1.48 x1000 Normal 1.40-8.80 So [facility] Comment on above: Performed By: #### 9 000268, 990458, 2890732, 750509, 307943, 995907 ####[facility] [address]ijyr[address]39 [place] [address] Medical Director: Eh Gould MD Neutrophils/100 WBC (Bld) 52.5 % Normal [facility] Comment on above: Performed By: #### 9 790525, 373433, 0947421, 353298, 107635, 522584 ####[facility] Q[address]hsxo73010 [place] [address] Medical Director: Eh Gould MD Red Blood Cell Morphology See Notes Abnormal [facility] Comment on above: Result Comment: Macr ocytosis 2+ Rouleaux 1+ Performed By: #### 9 705352, 466776, 8812093, 271760, 908803, 146962 ####[facility] [address]jjxq43434 [place] [address] Medical Director: Eh Gould MD Scan Differential Diff Scd Normal [facility] Comment on above: Result Comment: Slid e reviewed by technologist. Performed By: #### 9 363637, 045640, 9114627, 923682, 335791, 961161 ####[facility] X[address]cttnz68[address] [place], [place] [id number]) [phone] Director: Eh Gould MD BASICMETAon 10-12-2023 Calcium [Mass/Vol] 10.1 mg/dL Normal 8.7-10.4 [facility] Comment on above: Performed By: #### 9 085525, 454523, 8587931, 887235, 542264, 746861 ####[facility] Zysaeymj64934 [place], [place] [address]) [phone] Director: Eh Gould MD Chloride [Moles/Vol] 103 mmol/L Normal 98-107 [facility] Comment on above: Performed By: #### 9 038732, 480526, 1758036, 891023, 165852, 571133 ####[facility] Ecbcedso04652 [place], [place] [address]) [phone] Director: Eh Gould MD CO2 [Moles/Vol] 27.0 mmol/L Normal 20.0-31.0 [facility] Comment on above: Performed By: #### 9 346380, 654350, 7380003, 343566, 699469, 471177 ####[facility] [address]nsqw52141 [place] [address] Medical Director: Eh Gould MD Creatinine [Mass/Vol] 1.2 mg/dL High 0.6-1.1 [facility] Comment on above: Performed By: #### 9 524992, 771118, 9394053, 636496, 086582, 503218 ####[facility] [address] [place], [place] [id number]) [phone] Director: Eh Gould MD GFR AA >60 Normal [facility] Comment on above: Result Comment: Afri can [place]cu[place]orean GFR Calc Medical judgement is necessary to interpret GFR. The calculated GFR may not accurately reflect renal status in patients >70 years, women, acutely ill hospitalized patients and patients with acute renal failure or known renal disease. The MDRD GFR formula is valid only for adults greater than 18 years of age. Note: Creatinine clearance (not GFR) should be used for drug dosing. Performed By: #### 9 777529, 243192, 3487812, 843359, 238734, 417459 ####[facility] Ioogjaou25588 [place] [address] Medical Director: Eh Gould MD Glomerular Filtration Rate 59 mL/min/1.73m? Normal [facility] Comment on above: Result Comment: Non- GFR Calc Medical judgement is necessary to interpret GFR. The calculated GFR may not accurately reflect renal status in patients >70 years, women, acutely ill hospitalized patients and patients with acute renal failure or known renal disease. The MDRD GFR formula is valid only for adults greater than 18 years of age. Note: Creatinine clearance (not GFR) should be used for drug dosing. Performed By: #### 9 912561, 934749, 2317070, 935046, 692769, 015124 ####[facility] Fflncsnr12569 [place] [address] Medical Director: Eh Gould MD Glucose [Mass/Vol] 111 mg/dL High 74-106 [facility] Comment on above: Performed By: #### 9 208976, 860917, 5968086, 295683, 535520, 997426 ####[facility] Ycsaghbo[address]61 [place] [address] Medical Director: Eh Gould MD Osmolality [Osmolality] 281 mosm/kg Normal 275-295 [facility] Comment on above: Performed By: #### 9 589097, 862470, 3006549, 827691, 577669, 431799 ####[facility] Jkb[address]zlai38802 [place] [address] Medical Director: Eh Gould MD Potassium [Moles/Vol] 4.0 mmol/L Normal 3.5-5.1 [facility] Comment on above: Performed By: #### 9 004393, 063500, 5097140, 297698, 170138, 411337 ####[facility] Hgsfffgp02592 [place] [address] Medical Director: Eh Gould MD Sodium [Moles/Vol] 140 mmol/L Normal 135-145 [facility] Comment on above: Performed By: #### 9 473498, 649273, 7027624, 786555, 891721, 825169 ####[facility] Vuoeixjq54620 [place] [address] Medical Director: Eh Gould MD Urea nitrogen [Mass/Vol] 16 mg/dL Normal 9-23 [facility] Comment on above: Result Comment: - Ve nipuncture should occur prior to N-Acetyl Cysteine (NAC) or Metamizole (Sulpyrine) administration due to the potential for falsely depressed results. - Blood samples from some patients with monoclonal gammopathies may produce falsely elevated results Performed By: #### 9 010695, 780383, 6649896, 595825, 171046, 294020 ####[facility] [address]iclq[address] [place] [address] Medical Director: Eh Gould MD Urea nitrogen/Creatinine [Mass ratio] 13.3 mg/mg Normal [facility] Comment on above: Performed By: #### 9 144022, 954023, 5385529, 624165, 446660, 596915 ####[facility] Dmxgkeyq73556 [place] [address] Medical Director: Eh Gould MD HEMOon 10-12-2023 DIFF? No Normal [facility] Comment on above: Performed By: #### 9 471888, 183587, 6612830, 015172, 490576, 322718 ####[facility] Dvnsawhn33020 [place], [place] [id number]) [phone] Director: Eh Gould MD HEM PATH REVIEW See Diff Review Interp Normal [facility] Comment on above: Performed By: #### 9 850419, 773314, 6604544, 519317, 752887, 951718 ####[facility] Lgfnqdzl30803 [place] [address] Medical Director: Eh Gould MD Nucleated RBC 0 /100WBC Normal [facility] Comment on above: Performed By: #### 9 832478, 548137, 1944807, 873852, 448494, 360365 ####[facility] Xjylhfcb77035 [place], [place] [id number]) [phone] Director: Eh Gould MD DxH Actions See Notes Abnormal [facility] Comment on above: Result Comment: Scan for RBC Morphology Scan Slide. Perform manual diff if needed. SNV Performed By: #### 9 957183, 559375, 8539893, 849191, 711866, 561396 ####[facility] Wbggnlpm99428 [place] [address] Medical Director: Eh Gould MD Erythrocyte distribution width (RBC) [Ratio] 13.5 % Normal 11.5-14.5 [facility] Comment on above: Performed By: #### 9 595324, 532100, 7361266, 352929, 441765, 595959 ####[facility] Kgijmpbh84385 [place] [address] Medical Director: Eh Gould MD Hematocrit (Bld) [Volume fraction] 27.4 % Low 41.0-52.0 [facility] Comment on above: Performed By: #### 9 634521, 684569, 6745750, 908797, 568688, 653379 ####[facility] Wtzcqpmu71904 [place] [address] Medical Director: Eh Gould MD Hemoglobin (Bld) [Mass/Vol] 9.4 g/dL Low 13.5-17.5 [facility] Comment on above: Performed By: #### 9 672481, 787439, 3563005, 691805, 210883, 823970 ####[facility] Iweaxfno89341 [place] [address] Medical Director: Eh Gould MD Instr WBC 2.8 Normal [facility] Comment on above: Performed By: #### 9 943022, 679702, 0375051, 209102, 832037, 522586 ####[facility] Gfqarima08633 [place] [address] Medical Director: Eh Gould MD MCH (RBC) [Entitic mass] 37.4 pg High 27.0-34.0 [facility] Comment on above: Performed By: #### 9 728672, 646941, 4517804, 373985, 166367, 327940 ####[facility] Ukaonxxn27366 [place] [address] Medical Director: Eh Gould MD MCHC (RBC) [Mass/Vol] 34.2 g/dL Normal 32.0-37.0 [facility] Comment on above: Performed By: #### 9 854666, 605351, 7384851, 177017, 047659, 302740 ####[facility] Perdxelj69468 [place] [address] Medical Director: Eh Gould MD MCV (RBC) [Entitic vol] 109.4 fL High 80.0-100.0 S [facility] Comment on above: Performed By: #### 9 604314, 168459, 5464782, 423816, 572696, 151739 ####[facility] Iryndfep37289 [place] [address] Medical Director: Eh Gould MD Platelet 165 x10 Normal 150-450 [facility] Comment on above: Performed By: #### 9 624620, 140577, 7705795, 633007, 248870, 935970 ####[facility] Bqojktkr25532 [place], [place] [id number]) [phone] Director: Eh Gould MD Platelet mean volume (Bld) [Entitic vol] 6.3 fL Low 7.4-10.4 [facility] Comment on above: Performed By: #### 9 704735, 481732, 8855889, 833964, 254839, 507684 ####[facility] Imvmwmbo78414 [place], [place] [id number]) [phone] Director: Eh Gould MD RBC 2.51 x10 Low 4.70-6.10 [facility] Comment on above: Result Comment: Note : RBC morphology is normal unless otherwise stated. Evaluation performed only if differential is requested. Performed By: #### 9 607717, 916427, 2663971, 880328, 637448, 599871 ####[facility] [address]ag[address] [place], [place] [address]) [phone] Director: Eh Gould MD WBC 2.8 x10 Low 4.5-11.0 [facility] Comment on above: Performed By: #### 9 794862, 877258, 0064219, 654308, 125911, 627311 ####[facility] Qckbctik58504 [place], [place] [id number]) [phone] Director: Eh Gould MD PT INRon 10-12-2023 INR Coag (PPP) [Relative time] 1.2 {INR} Normal [facility] Comment on above: Result Comment: INR Reference Range: Normal reference range for INR on patients not on anticoagulant therapy: 0.9-1.1 General therapeutic range for patients on anticoagulant therapy: 2.0-3.5 Performed By: #### 9 504857, 426821, 2900734, 144003, 385004, 913844 ####[facility] Fxayiwox22679 [place] [address] Medical Director: Eh Gould MD Protime Patient 13.4 seconds High 9.8-12.8 [facility] Comment on above: Performed By: #### 9 367603, 692885, 2528200, 168423, 153321, 569756 ####[facility] Ijhwhpcy82176 [place] [address] Medical Director: Eh Gould MD Preadmission Testing Progres s Noteon 10-12-2023 Preadmission Testing Progress Note PREADMISSION TESTING (PAT) INSTRUCTION SHEET [ X] Bring your Surgery Guide with you on day of surgery [ X ] Read and complete your Discharge Planning Checklist [ X ] Take only highlighted medications on morning of surgery [ X ] Stop all vitamins and herbal supplements 7 days prior to surgery (unless otherwise instructed) [X ] Call Surgeon when to stop taking the following: PLAVIX, ASPIRIN [X ] Bring on day of surgery: [ ] Crutches (leave in car) [ ] Inhaler [ ] C-pap machine (if prescribed) [ ] Oxygen [X ] Green blood band (in Surgery Guide) [ ] Advanced Directive [X ] Additional instructions: No visitors will be allowed in pre-op or recovery on day of surgery *Any major change in your medical condition, that was treated by your primary physician or the result of an Emergency Room visit, must be reported to your surgeon. Simba TOLEDO, Dante Lanier on Normal [facility] UAon 10-12-2023 U MICRO Indicated Normal [facility] Comment on above: Performed By: #### 1 00015 #### [facility] [address] [place] [address] Network Operations Lead: Eh Gould MD Appearance, U Clear Normal [facility] Comment on above: Performed By: #### 1 23234 #### [facility] [address] [place] [address] Network Operations Lead: Eh Gould MD Bilirubin, U Negative Normal Negative [facility] Comment on above: Performed By: #### 1 47554 #### [facility] [address] [place] [address] Network Operations Lead: Eh Gould MD Blood, U Moderate Abnormal Negative [facility] Comment on above: Performed By: #### 1 66265 #### [facility] [address] [place] [address] Network Operations Lead: Eh Gould MD Color, U Yellow Normal [facility] Comment on above: Performed By: #### 1 09184 #### [facility] [address] [place] [address] Network Operations Lead: Eh Gould MD Glucose Qual, U Negative Normal Negative [facility] Comment on above: Performed By: #### 1 33165 #### [facility] [address] [place] [address] Network Operations Lead: Eh Gould MD Hyaline Cast <1 Normal [facility] Comment on above: Performed By: #### 1 32317 #### [facility] [address] [place] [address] Network Operations Lead: Eh Gould MD Ketones, U Negative Normal Negative [facility] Comment on above: Performed By: #### 1 35015 #### [facility] [address] [place] [address] Network Operations Lead: Eh Gould MD Leukocyte Esterase, U Negative Normal Negative [facility] Comment on above: Performed By: #### 1 75880 #### [facility] [address] [place] [address] Network Operations Lead: Eh Gould MD Mucous, U Occasional Normal [facility] Comment on above: Performed By: #### 1 14326 #### [facility] [address] [place] [address] Network Operations Lead: Eh Gould MD Nitrite, U Negative Normal Negative [facility] Comment on above: Performed By: #### 1 25996 #### [facility] [address] [place] [address] Network Operations Lead: Eh Gould MD pH, U 5.0 Normal 4.5-8.0 [facility] Comment on above: Performed By: #### 1 96109 #### [facility] [address] [place] [address] Network Operations Lead: Eh Gould MD Protein, U Negative Normal Negative [facility] Comment on above: Performed By: #### 1 41871 #### [facility] [address] [place] [address] Network Operations Lead: Eh Gould MD RBC/HPF, U 5 #/HPF High 0-3 [facility] Comment on above: Performed By: #### 1 44283 #### [facility] [address] [place] [address] Network Operations Lead: Eh Gould MD Specific [place], U 1.016 Normal 1.001-1.035 [facility] Comment on above: Performed By: #### 1 55974 #### [facility] [address] [place] [address] Network Operations Lead: Eh Gould MD Urobilinogen Qual, U <2.0 mg/dl Normal <2.0 mg/dl [facility] Comment on above: Result Comment: EU/d l and mg/dl are equivalent units. Performed By: #### 1 87062 #### [facility] [address] [place] [address] Network Operations Lead: Eh Gould MD WBC/HPF, U 7 #/HPF High 0-5 [facility] Comment on above: Performed By: #### 1 79238 #### [facility] [address] [place] [address] Network Operations Lead: Eh Gould MD Activated clotting timeon 12 -05-2023 ACT Coag (Bld) 271 s High 89-169 [facility] Comment on above: Result Comment: Targ et ACT range will vary based on the patient population, clinical status, and surgical intervention occurring. Performed By: #### 3 184-9 #### JAVAD Stephenson ([id number]) [facility] ([facility]) [address] [place] [address] CT WATCHMAN FULL CONTRASTon 08-28-2023 CT WATCHMAN FULL CONTRAST Interpreted By: Purnima Lira, STUDY: CT WATCHMAN FULL CONTRAST; 08/28/2023 12:00 pm INDICATION: Signs/Symptoms:pre Watchman procedure SAME DAY CT. COMPARISON: None. ACCESSION NUMBER(S): [id number] ORDERING CLINICIAN: RYAN COBB TECHNIQUE: Using multi detector CT technology,axial imaging with prospective gating was performed of the chest following the intravenous administration of contrast material. A low-osmolar contrast agent was used (70 cc of Omnipaque 350. Next, the imaging was repeated with prospective gating after 10 sec delay as per watchman protocol. Also, patient received 500 mL of normal saline prior to exam as per protocol. For optimization of anatomic evaluation, multiplanar reconstruction, maximum intensity projections, and advanced 3-D off-line postprocessing were performed on a dedicated stand-alone workstation under the direct supervision of the interpreting physician. CT Dose-Length Product (DLP): 1035 mGy*cm CT Dose Reduction Employed: Yes (Prospective triggering, iterative reconstruction) FINDINGS: POTENTIAL STUDY LIMITATIONS: None CORONARY ARTERIES: CORONARY ANATOMY: There is normal origin of the coronary arteries. Right dominant system. There is moderate atherosclerotic calcifications of the coronary arteries. CARDIAC CHAMBERS: The cardiac chambers demonstrate normal atrioventricular and ventriculoarterial concordance, and systemic and pulmonary venous return. LEFT ATRIUM: Significantly dilated (33.5-cm2). There is no evidence of left atrium or left atrial appendage thrombus. The left atrial appendage orifice is oval in shape, measuring 1.8 x 2.7 in orthogonal dimensions and with an area of 4.1 cm. sq. Left atrial appendage depth is 3.8 cm. RIGHT ATRIUM: Normal size (20.4-cm2) VENTRICLES: The left and right ventricles appear normal in appearance, although accurate size measurements are not possible on systolic phase imaging. INTERATRIAL SEPTUM: Intact. INTERVENTRICULAR SEPTUM: Intact. AORTIC VALVE: The aortic valve is trileaflet in morphology. No valvular thickening or calcifications. MITRAL VALVE: No valvular thickening/calcificati on. THORACIC AORTA: The thoracic aorta normal in course and caliber.There is no evidence for acute aortic pathology, such as dissection, intramural hematoma, or contained rupture. The aortic arch is not included on this examination. PERICARDIUM: There is no pericardial effusion seen. CHEST: The trachea and central airways are patent. No endobronchial lesion is seen. There is left basilar atelectasis. No evidence of lymphadenopathy within included mediastinum. Visualized esophagus appears within normal limits as seen. UPPER ABDOMEN: The visualized subdiaphragmatic structures demonstrate no remarkable findings. CHEST WALL AND OSSEOUS STRUCTURES: Visualized chest wall is within normal limits. No acute osseous pathology.There are no suspicious osseous lesions within included chest. IMPRESSION: 1. No evidence of left atrial/left atrial appendage thrombus. 2. The left atrial appendage orifice is oval in shape, measuring 1.8 cm x 2.7 cm in orthogonal dimensions and with an area of 4.1 cm. sq. Left atrial appendage depth is 3.8. 3. There is moderate atherosclerotic calcification of the coronary arteries. MACRO: None Signed by: Purnima Lira 09/06/2023 9:28 AM Dictation workstation: [id number] [facility] ECG 12-LEADon 08-28-2023 ECG 12-LEAD Ventricular Rate 63 Atrial Rate 63 P-R Interval 196 QRS Duration 86 Q-T Interval 402 QTC Calculation(Bazett) 411 P [place] 67 R [place] -1 T [place] 20 QRS Count 10 Q Onset 223 P Onset 125 P Offset 180 T Offset 424 QTC Fredericia 408 Diagnosis Normal sinus rhythm Inferior infarct Possible Anterior infarct Abnormal ECG Confirmed by Benny Obrien ([id number]) on 08/30/2023 3:59:32 PM Normal [facility] STRUCTURAL HEART PROCEDUREon 08-28-2023 STRUCTURAL HEART PROCEDURE [facility], Software Support Technician, [address] [place] [address] Cardiovascular Catheterization Report Patient Name: NEIL WILCOX Performing Physician: [id number] Cobb MD Study Date: 08/28/2023 Verifying Physician: Archie Cobb MD MRN/PID: [id number] Psychology Professor/Co-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 Using ultrasound guidance and Micropuncture technique dual access was obtained in the right common femoral vein. Two 8F sheaths Were placed using a modified Seldinger technique. The patient was administered IV Heparin and ACT Was confirmed to be therapeutic. An AcuNav ICE probe was then advanced through one of the sheaths And under ICE guidance, transseptal puncture was with a Soxiablecross (Valkee), accessing the left atrium. The transseptal tract was then dilated with a Watchman Double Curve access sheath and the ICE probe was advanced through the dilated tract into the left atrium. Next, a 6 [place]ian angled pigtail was advanced through the delivery sheath into the left atrial appendage and angiography was performed via the pigtail. Sizing of the device was confirmed by ICE and angiography. We then advanced a 27 mm Watchman Closure Device and confirmed placement both by ICE and angiography. A 'tug test' was performed and confirmed stability. No color Doppler flow around the device was appreciated. 22% device compression was also confirmed. Having satisfied position, anchoring, size and seal criteria, the device was successfully deployed. All equipment was then removed and hemostasis was facilitated by Vascade And Proglide Closure devices The patient was enrolled in a research study and data was Included in the LAAO registry. Hemo Personnel: + +---- -----+ Name Duty + +---- -----+ Ryan Cobb MD, MD 1 + +---- -----+ Hemodynamic Pressures: +----+ -----+ +----- ----+ +----- ------+ Site Date Time Phase Name Mean mmHg A-Wave mmHg V-Wave mmHg +----+ -----+ +----- ----+ +----- ------+ [place] 08/28/2023 11:57:27 AM Rest 5 12 9 +----+ -----+ +----- ----+ +----- ------+ [place] 08/28/2023 12:12:19 PM Rest 9 16 15 +----+ -----+ +----- ----+ +----- ------+ Complications: No in-lab complications observed. Cardiac Cath Post Procedure Notes: Post Procedure Diagnosis: Left atrial appendage closure. Blood Loss: Estimated blood loss during the procedure was 0 mls. Specimens Removed: Number of specimen(s) removed: none. CONCLUSIONS: 1. Successful LAAC using WATCHMAN 27 mm FLX device. ICD 10 Codes: Paroxysmal atrial fibrillation-I48.0 CPT Codes: Perc left atrial appendage closure (LAAC)-11491 [id number] Ryan Cobb MD Performing Physician Final Normal [facility] TRANSTHORACIC ECHO (TTE) MARITZA Epperson 08-28-2023 TRANSTHORACIC ECHO (TTE) [facility], [address] [place] [address] and TRANSTHORACIC ECHOCARDIOGRAM REPORT Patient Name: NEIL WILCOX Reading Physician: [id number] Jacobo French MD Study Date: 08/28/2023 Ordering Provider: [id number] LUCAS PEARCE MRN/PID: [id number] Fellow: Nurse: Date of 1945 Ticketing Clerk: Moncho Infante RDCS /Age: years Gender: M Additional Staff: Height: 175.26 cm Admit Date: 08/28/2023 Weight: 79.38 kg Admission Status: Inpatient - Routine BSA: 1.95 m2 Department [facility] Cath Location: Lab Blood Pressure: 137 /78 mmHg Study Type: TRANSTHORACIC ECHO (TTE) LIMITED Diagnosis/ICD: Unspecified atrial fibrillation-I48.91 Indication: POST LAAO CPT Code: Echo Limited-21867 Patient History: Pertinent History: HTN; HLD; paroxysmal a-fib; TIA. Study Detail: The following Echo studies were performed: 2D and M-Mode. Technically challenging study due to body habitus. PHYSICIAN INTERPRETATION: Left Ventricle: The left ventricular systolic function is normal, with an estimated ejection fraction of 60-65%. There are no regional wall motion abnormalities. The left ventricular cavity size is normal. Left ventricular diastolic filling was not assessed. Left Atrium: The left atrium is normal in size. Right Ventricle: The right ventricle was not well visualized. Right ventricular systolic function not assessed. Right Atrium: The right atrium was not well visualized. Aortic Valve: The aortic valve is trileaflet. Aortic valve regurgitation was not assessed. Mitral Valve: The mitral valve is normal in structure. Mitral valve regurgitation was not assessed. Tricuspid Valve: The tricuspid valve was not well visualized. Tricuspid regurgitation was not assessed. Pulmonic Valve: The pulmonic valve is not well visualized. The pulmonic valve regurgitation was not well visualized. Pericardium: There is a trivial pericardial effusion. Aorta: The aortic root is normal. The ascending aorta was not well visualized. In comparison to the previous echocardiogram(s): Compared with study from 08/28/2023, no significant change. CONCLUSIONS: 1. Left ventricular systolic function is normal with a 60-65% estimated ejection fraction. 2. Limited post-LAAO TTE. 3. Compared with study from 08/28/2023, no significant change. QUANTITATIVE DATA SUMMARY: 2D MEASUREMENTS: Normal Ranges: Ao Root d: 3.20 cm (2.0-3.7cm) IVSd: 0.87 cm (0.6-1.1cm) LVPWd: 0.82 cm (0.6-1.1cm) LVIDd: 4.91 cm (3.9-5.9cm) LVIDs: 3.31 cm LV Mass Index: 72.4 g/m2 LV % FS 32.6 % [id number] Jacobo French MD Electronically signed on 08/28/2023 at 5:50:59 PM Final [facility] TRANSTHORACIC ECHO (TTE) [facility], [address] [place] [address] and TRANSTHORACIC ECHOCARDIOGRAM REPORT Patient Name: NEIL Aldana Physician: [id number] Kandis Chau MD Study Date: 08/28/2023 Ordering Provider: [id number] LUCAS PEARCE MRN/PID: [id number] Fellow: Nurse: Date of /Age: 1 1945 / 77 years Ticketing Clerk: Moncho Infante [place]OR[place] Gender: M Additional Staff: Height: 175.26 cm Admit Date: 08/28/2023 Weight: 79.38 kg Admission Status: Inpatient - Routine BSA: 1.95 m2 Department Location: [facility] Non Invasive Study Type: TRANSTHORACIC ECHO (TTE) LIMITED Diagnosis/ICD: Unspecified atrial fibrillation-I48.91 Indication: Pre-LAAO CPT Code: Echo Limited-09041 Patient History: Pertinent History: HTN; HLD: paroxysmal a-fib; TIA. Study Detail: The following Echo studies were performed: 2D and M-Mode. Technically challenging study due to body habitus and patient lying in supine position. PHYSICIAN INTERPRETATION: Left Ventricle: The left ventricular systolic function is normal, with an estimated ejection fraction of 60-65%. There are no regional wall motion abnormalities. The left ventricular cavity size is normal. Left ventricular diastolic filling was not assessed. Left Atrium: The left atrium was not well visualized. Right Ventricle: The right ventricle was not well visualized. Right ventricular systolic function not assessed. Right Atrium: The right atrium was not assessed. Aortic Valve: The aortic valve is trileaflet. Aortic valve regurgitation was not assessed. Mitral Valve: The mitral valve is normal in structure. Mitral valve regurgitation was not assessed. Tricuspid Valve: The tricuspid valve is structurally normal. Tricuspid regurgitation was not assessed. Pulmonic Valve: The pulmonic valve is not well visualized. Pulmonic valve regurgitation was not assessed. Pericardium: There is a trivial pericardial effusion. Aorta: The aortic root is normal. Systemic Veins: The inferior vena cava appears to be of normal size. There is IVC inspiratory collapse greater than 50%. In comparison to the previous echocardiogram(s): There are no prior studies on this patient for comparison purposes. No prior echocardiogram available for comparison. CONCLUSIONS: 1. Left ventricular systolic function is normal with a 60-65% estimated ejection fraction. 2. Poorly visualized anatomical structures due to suboptimal image quality. 3. Limited echo pre LAAO closure device placement. 4. No prior echocardiogram available for comparison. QUANTITATIVE DATA SUMMARY: AORTA MEASUREMENTS: Normal Ranges: Ao Sinus, d: 3.10 cm (2.1-3.5cm) TRICUSPID VALVE/RVSP: Normal Ranges: IVC Diam: 1.50 cm [id number] Kandis Chau MD Electronically signed on 08/28/2023 at 3:17:19 PM Final [facility] Heart Transthoracicon [facility], [address] [place] [address] and TRANSTHORACIC ECHOCARDIOGRAM REPORT Patient Name: NEIL Matthews DAVIAN Reading Physician: [id number] Kandis Chau MD Study Date: 08/28/2023 Ordering Provider: [id number] LUCAS PEARCE MRN/PID: [id number] Fellow: Nurse: Date of /Age: 1 1945 / 77 years Ticketing Clerk: Moncho Infante RDCS Gender: M Additional Staff: Height: 175.26 cm Admit Date: 08/28/2023 Weight: 79.38 kg Admission Status: Inpatient - Routine BSA: 1.95 m2 Department Location: [facility] Non Invasive Study Type: TRANSTHORACIC ECHO (TTE) LIMITED Diagnosis/ICD: Unspecified atrial fibrillation-I48.91 Indication: Pre-LAAO CPT Code: Echo Limited-40506 Patient History: Pertinent History: HTN; HLD: paroxysmal a-fib; TIA. Study Detail: The following Echo studies were performed: 2D and M-Mode. Technically challenging study due to body habitus and patient lying in supine position. PHYSICIAN INTERPRETATION: Left Ventricle: The left ventricular systolic function is normal, with an estimated ejection fraction of 60-65%. There are no regional wall motion abnormalities. The left ventricular cavity size is normal. Left ventricular diastolic filling was not assessed. Left Atrium: The left atrium was not well visualized. Right Ventricle: The right ventricle was not well visualized. Right ventricular systolic function not assessed. Right Atrium: The right atrium was not assessed. Aortic Valve: The aortic valve is trileaflet. Aortic valve regurgitation was not assessed. Mitral Valve: The mitral valve is normal in structure. Mitral valve regurgitation was not assessed. Tricuspid Valve: The tricuspid valve is structurally normal. Tricuspid regurgitation was not assessed. Pulmonic Valve: The pulmonic valve is not well visualized. Pulmonic valve regurgitation was not assessed. Pericardium: There is a trivial pericardial effusion. Aorta: The aortic root is normal. Systemic Veins: The inferior vena cava appears to be of normal size. There is IVC inspiratory collapse greater than 50%. In comparison to the previous echocardiogram(s): There are no prior studies on this patient for comparison purposes. No prior echocardiogram available for comparison. CONCLUSIONS: 1. Left ventricular systolic function is normal with a 60-65% estimated ejection fraction. 2. Poorly visualized anatomical structures due to suboptimal image quality. 3. Limited echo pre LAAO closure device placement. 4. No prior echocardiogram available for comparison. QUANTITATIVE DATA SUMMARY: AORTA MEASUREMENTS: Normal Ranges: Ao Sinus, d: 3.10 cm (2.1-3.5cm) TRICUSPID VALVE/RVSP: Normal Ranges: IVC Diam: 1.50 cm [id number] Kandis Chau MD Electronically signed on 08/28/2023 at 3:17:19 PM Final Kandis Bhatt MD - 08/28/2023 [facility], [address] [place] [address] and TRANSTHORACIC ECHOCARDIOGRAM REPORT Patient Name: NEIL WILCOX Reading Physician: [id number] Kandis Chau MD Study Date: 08/28/2023 Ordering Provider: [id number] LUCAS PEARCE MRN/PID: [id number] Fellow: Nurse: Date of /Age: 1 1945 / 77 years Ticketing Clerk: Moncho Infante RDCS Gender: M Additional Staff: Height: 175.26 cm Admit Date: 08/28/2023 Weight: 79.38 kg Admission Status: Inpatient - Routine BSA: 1.95 m2 Department Location: [facility] Non Invasive Study Type: TRANSTHORACIC ECHO (TTE) LIMITED Diagnosis/ICD: Unspecified atrial fibrillation-I48.91 Indication: Pre-LAAO CPT Code: Echo Limited-30630 Patient History: Pertinent History: HTN; HLD: paroxysmal a-fib; TIA. Study Detail: The following Echo studies were performed: 2D and M-Mode. Technically challenging study due to body habitus and patient lying in supine position. PHYSICIAN INTERPRETATION: Left Ventricle: The left ventricular systolic function is normal, with an estimated ejection fraction of 60-65%. There are no regional wall motion abnormalities. The left ventricular cavity size is normal. Left ventricular diastolic filling was not assessed. Left Atrium: The left atrium was not well visualized. Right Ventricle: The right ventricle was not well visualized. Right ventricular systolic function not assessed. Right Atrium: The right atrium was not assessed. Aortic Valve: The aortic valve is trileaflet. Aortic valve regurgitation was not assessed. Mitral Valve: The mitral valve is normal in structure. Mitral valve regurgitation was not assessed. Tricuspid Valve: The tricuspid valve is structurally normal. Tricuspid regurgitation was not assessed. Pulmonic Valve: The pulmonic valve is not well visualized. Pulmonic valve regurgitation was not assessed. Pericardium: There is a trivial pericardial effusion. Aorta: The aortic root is normal. Systemic Veins: The inferior vena cava appears to be of normal size. There is IVC inspiratory collapse greater than 50%. In comparison to the previous echocardiogram(s): There are no prior studies on this patient for comparison purposes. No prior echocardiogram available for comparison. CONCLUSIONS: 1. Left ventricular systolic function is normal with a 60-65% estimated ejection fraction. 2. Poorly visualized anatomical structures due to suboptimal image quality. 3. Limited echo pre LAAO closure device placement. 4. No prior echocardiogram available for comparison. QUANTITATIVE DATA SUMMARY: AORTA MEASUREMENTS: Normal Ranges: Ao Sinus, d: 3.10 cm (2.1-3.5cm) TRICUSPID VALVE/RVSP: Normal Ranges: IVC Diam: 1.50 cm [id number] Kandis Chau MD Electronically signed on 08/28/2023 at 3:17:19 PM Final [facility] Work Phone: Heart TransthoracicOrdere d By: Kandis Chau on 08-28-2023 [facility] Work Phone: Creatinineon 08-22-2023 Creatinine [Mass/Vol] 1.23 mg/dL Normal 0.50-1.30 [facility] Comment on above: Performed By: #### 2 160-0 #### LINDA GALLAGHER ([id number]) [facility] [place] [place] [address] [place] [address] Creatinine [Mass/Vol]on 07-26 GFR/1.73 sq M.predicted MDRD (S/P/Bld) [Vol rate/Area] 61 mL/min/1.73m*2 Normal >60 [facility] Comment on above: Result Comment: Calc ulations of estimated GFR are performed using the 2020 CKD-EPI Study Refit equation without the race variable for the IDMS-Traceable creatinine methods. https://jasn.asnjournals.org/content/early//ASN.2020 552876 Performed By: #### 2 160-0 #### LINDA GALLAGHER ([id number]) [facility] ([facility]) [address] [place] [address]605 CBC W Auto Differential pane l (Bld)on 07-31-2023 Basophils (Bld) [#/Vol] 10*3/uL Normal <0.11 C [facility] Comment on above: Order Comment: Speci men Type: BLOOD SPECIMEN Ordering Facility: External Submitter Address: , , Performed By: #### 5 7021-8 #### [facility] CLIA [id number] [address] [place] [address] [place] Basophils/100 WBC (Bld) 0.3 % Normal C [facility] Comment on above: Order Comment: Speci men Type: BLOOD SPECIMEN Ordering Facility: External Submitter Address: , , Performed By: #### 5 7021-8 #### [facility] CLIA [id number] [address] [place] [address] [place] CBC W Differential panel, method unspecified (Bld) Done Normal [facility] Comment on above: Order Comment: Speci men Type: BLOOD SPECIMEN Ordering Facility: External Submitter Address: , , Performed By: #### 5 7021-8 #### [facility] CLIA [id number] [address] [place] [address] [place] Differential cell count method Nom (Bld) Auto Normal [facility] Comment on above: Order Comment: Speci men Type: BLOOD SPECIMEN Ordering Facility: External Submitter Address: , , Performed By: #### 5 7021-8 #### [facility] CLIA [id number] [address] [place] [address] [place] Eosinophils (Bld) [#/Vol] 0.22 10*3/uL Normal <0.46 [facility] Comment on above: Order Comment: Speci men Type: BLOOD SPECIMEN Ordering Facility: External Submitter Address: , , Performed By: #### 5 7021-8 #### [facility] CLIA [id number] [address] [place] [address] [place] Eosinophils/100 WBC (Bld) 6.5 % Normal [facility] Comment on above: Order Comment: Speci men Type: BLOOD SPECIMEN Ordering Facility: External Submitter Address: , , Performed By: #### 5 7021-8 #### [facility] CLIA [id number] [address] [place] [address] [place] Erythrocyte distribution width (RBC) [Ratio] 13.0 % Normal 11.5-15.0 [facility] Comment on above: Order Comment: Speci men Type: BLOOD SPECIMEN Ordering Facility: External Submitter Address: , , Performed By: #### 5 7021-8 #### [facility] CLIA [id number] [address] [place] [address] [place] Hematocrit (Bld) [Volume fraction] 31.3 % Low 39.0-51.0 [facility] Comment on above: Order Comment: Speci men Type: BLOOD SPECIMEN Ordering Facility: External Submitter Address: , , Performed By: #### 5 7021-8 #### [facility] CLIA [id number] [address] [place] [address] [place] Hemoglobin (Bld) [Mass/Vol] 10.4 g/dL Low 13.0-17.0 [facility] Comment on above: Order Comment: Speci men Type: BLOOD SPECIMEN Ordering Facility: External Submitter Address: , , Performed By: #### 5 7021-8 #### [facility] CLIA [id number] [address] [place] [address] [place] Immature granulocytes (Bld) [#/Vol] 10*3/uL Normal <0.10 [facility] Comment on above: Order Comment: Speci men Type: BLOOD SPECIMEN Ordering Facility: External Submitter Address: , , Performed By: #### 5 7021-8 #### [facility] CLIA [id number] [address] [place] [address] [place] Immature granulocytes/100 WBC (Bld) 0.0 % Normal [facility] Comment on above: Order Comment: Speci men Type: BLOOD SPECIMEN Ordering Facility: External Submitter Address: , , Performed By: #### 5 7021-8 #### [facility] CLIA [id number] [address] [place] [address] [place] Lymphocytes (Bld) [#/Vol] 1.06 10*3/uL Normal 1.00-4.00 [facility] Comment on above: Order Comment: Speci men Type: BLOOD SPECIMEN Ordering Facility: External Submitter Address: , , Performed By: #### 5 7021-8 #### [facility] CLIA [id number] [address] [place] [address] [place] Lymphocytes/100 WBC (Bld) 31.2 % Normal [facility] Comment on above: Order Comment: Speci men Type: BLOOD SPECIMEN Ordering Facility: External Submitter Address: , , Performed By: #### 5 7021-8 #### [facility] CLIA [id number] [address] [place] [address] [place] MCH (RBC) [Entitic mass] 37.3 pg High 26.0-34.0 [facility] Comment on above: Order Comment: Speci men Type: BLOOD SPECIMEN Ordering Facility: External Submitter Address: , , Performed By: #### 5 7021-8 #### [facility] CLIA [id number] [address] [place] [address] [place] MCHC (RBC) [Mass/Vol] 33.2 g/dL Normal 30.5-36.0 [facility] Comment on above: Order Comment: Speci men Type: BLOOD SPECIMEN Ordering Facility: External Submitter Address: , , Performed By: #### 5 7021-8 #### [facility] CLIA [id number] [address] [place] [address] [place] MCV (RBC) [Entitic vol] 112.2 fL High 80.0-100.0 C [facility] Comment on above: Order Comment: Speci men Type: BLOOD SPECIMEN Ordering Facility: External Submitter Address: , , Performed By: #### 5 7021-8 #### [facility] CLIA [id number] [address] [place] [address] [place] Monocytes (Bld) [#/Vol] 0.13 10*3/uL Normal <0.87 [facility] Comment on above: Order Comment: Speci men Type: BLOOD SPECIMEN Ordering Facility: External Submitter Address: , , Performed By: #### 5 7021-8 #### [facility] CLIA [id number] [address] [place] [address] [place] Monocytes/100 WBC (Bld) 3.8 % Normal C [facility] Comment on above: Order Comment: Speci men Type: BLOOD SPECIMEN Ordering Facility: External Submitter Address: , , Performed By: #### 5 7021-8 #### [facility] CLIA [id number] [address] [place] [address] [place] Neutrophils (Bld) [#/Vol] 1.98 10*3/uL Normal 1.45-7.50 [facility] Comment on above: Order Comment: Speci men Type: BLOOD SPECIMEN Ordering Facility: External Submitter Address: , , Performed By: #### 5 7021-8 #### [facility] CLIA [id number] [address] [place] [address] [place] Neutrophils/100 WBC (Bld) 58.2 % Normal [facility] Comment on above: Order Comment: Speci men Type: BLOOD SPECIMEN Ordering Facility: External Submitter Address: , , Performed By: #### 5 7021-8 #### [facility] CLIA [id number] [address] [place] [address] [place] Nucleated RBC (Bld) [#/Vol] 10*3/uL Normal <0.01 [facility] Comment on above: Order Comment: Speci men Type: BLOOD SPECIMEN Ordering Facility: External Submitter Address: , , Performed By: #### 5 7021-8 #### [facility] CLIA [id number] [address] [place] [address] [place] Nucleated RBC/100 WBC (Bld) [Ratio] 0.0 /100 WBC Normal [facility] Comment on above: Order Comment: Speci men Type: BLOOD SPECIMEN Ordering Facility: External Submitter Address: , , Performed By: #### 5 7021-8 #### [facility] CLIA [id number] [address] [place] [address] [place] Platelet mean volume (Bld) [Entitic vol] 9.1 fL Normal 9.0-12.7 [facility] Comment on above: Order Comment: Speci men Type: BLOOD SPECIMEN Ordering Facility: External Submitter Address: , , Performed By: #### 5 7021-8 #### [facility] CLIA [id number] [address] [place] [address] [place] Platelets (Bld) [#/Vol] 166 10*3/uL Normal 150-400 [facility] Comment on above: Order Comment: Speci men Type: BLOOD SPECIMEN Ordering Facility: External Submitter Address: , , Performed By: #### 5 7021-8 #### [facility] CLIA [id number] [address] [place] [address] [place] Platelets Estimate (Bld) [#/Vol] Adequate Normal [facility] Comment on above: Order Comment: Speci men Type: BLOOD SPECIMEN Ordering Facility: External Submitter Address: , , Performed By: #### 5 7021-8 #### [facility] CLIA [id number] [address] [place] [address] [place] RBC (Bld) [#/Vol] 2.79 10*6/uL Low 4.20-6.00 [facility] Comment on above: Order Comment: Speci men Type: BLOOD SPECIMEN Ordering Facility: External Submitter Address: , , Performed By: #### 5 7021-8 #### [facility] CLIA [id number] [address] [place] [address] [place] RED CELL MORPH Reviewed: unremarkable Normal [facility] Comment on above: Order Comment: Speci men Type: BLOOD SPECIMEN Ordering Facility: External Submitter Address: , , Performed By: #### 5 7021-8 #### [facility] CLIA [id number] [address] [place] [address] [place] WBC (Bld) [#/Vol] 3.40 10*3/uL Low 3.70-11.00 [facility] Comment on above: Order Comment: Speci men Type: BLOOD SPECIMEN Ordering Facility: External Submitter Address: , , Performed By: #### 5 7021-8 #### [facility] CLIA [id number] [address] [place] [address] [place] Comprehensive metabolic 2000 panelon 07-31-2023 Albumin [Mass/Vol] 3.8 g/dL Low 3.9-4.9 [facility] Comment on above: Order Comment: Speci men Type: BLOOD SPECIMEN Ordering Facility: External Submitter Address: , , Performed By: #### 2 4323-8, 3024-7, 3016-3 #### [facility] CLIA [id number] [address] [place] [address] [place] ALP [Catalytic activity/Vol] 132 U/L High 38-113 [facility] Comment on above: Order Comment: Speci men Type: BLOOD SPECIMEN Ordering Facility: External Submitter Address: , , Performed By: #### 2 4323-8, 3024-7, 3016-3 #### [facility] CLIA [id number] [address] [place] [id number] [place] ALT [Catalytic activity/Vol] 9 U/L Low 10-54 [facility] Comment on above: Order Comment: Speci men Type: BLOOD SPECIMEN Ordering Facility: External Submitter Address: , , Performed By: #### 2 4323-8, 3023-7, 3 #### [facility] CLIA [id number] [address] [place] [address] [place] Anion gap [Moles/Vol] 15 mmol/L Normal 9-18 [facility] Comment on above: Order Comment: Speci men Type: BLOOD SPECIMEN Ordering Facility: External Submitter Address: , , Performed By: #### 2 4323-8, 7, 3 #### [facility] CLIA [id number] [address] [place] [address] [place] AST [Catalytic activity/Vol] 16 U/L Normal 14-40 [facility] Comment on above: Order Comment: Speci men Type: BLOOD SPECIMEN Ordering Facility: External Submitter Address: , , Performed By: #### 2 4323-8, 3024-03, 3 #### [facility] CLIA [id number] [address] [place] [address] [place] Bilirubin [Mass/Vol] 0.4 mg/dL Normal 0.2-1.3 [facility] Comment on above: Order Comment: Speci men Type: BLOOD SPECIMEN Ordering Facility: External Submitter Address: , , Performed By: #### 2 4323-8, 3024-03, 3 #### [facility] CLIA [id number] [address] [place] [id number] [place] Calcium [Mass/Vol] 9.6 mg/dL Normal 8.5-10.2 [facility] Comment on above: Order Comment: Speci men Type: BLOOD SPECIMEN Ordering Facility: External Submitter Address: , , Performed By: #### 2 4323-8, 3023-7, 3 #### [facility] CLIA [id number] [address] [address] [place] Chloride [Moles/Vol] 99 mmol/L Normal 97-105 [facility] Comment on above: Order Comment: Speci ciera Type: BLOOD SPECIMEN Ordering Facility: External Submitter Address: , , Performed By: #### 2 4323-8, 3024-03, 3 #### [facility] CLIA [id number] [address] [place] [id number] [place] CO2 [Moles/Vol] 23 mmol/L Normal 22-30 [facility] Comment on above: Order Comment: Speci men Type: BLOOD SPECIMEN Ordering Facility: External Submitter Address: , , Performed By: #### 2 4323-8, 3024-03, 3015-11 #### [facility] CLIA [id number] [address] [place] [address] [place] Creatinine [Mass/Vol] 1.23 mg/dL High 0.73-1.22 [facility] Comment on above: Order Comment: Speci men Type: BLOOD SPECIMEN Ordering Facility: External Submitter Address: , , Performed By: #### 2 4323-8, 3024-03, 3015-11 #### [facility] CLIA [id number] [address] [place] Creatinine and Glomerular filtration rate.predicted panel (S/P/Bld) 61 mL/min/1.73m??? Normal >=60 [facility] Comment on above: Order Comment: Speci men Type: BLOOD SPECIMEN Ordering Facility: External Submitter Address: , , Result Comment: Fernanda mated Glomerular Filtration Rate (eGFR) is calculated using the 2020 CKD-EPI creatinine equation. This equation utilizes serum creatinine, sex, and age as parameters. The creatinine assay has traceable calibration to isotope dilution-mass spectrometry. Refer to KDIGO guidelines for clinical interpretation. In patients with unstable renal function, e.g. those with acute kidney injury, the eGFR may not accurately reflect actual GFR. Performed By: #### 2 4323-8, 3024-03, 3015-11 #### [facility] CLIA [id number] [address] [address] [place] Glucose [Mass/Vol] 139 mg/dL High 74-99 [facility] Comment on above: Order Comment: Gee vang Type: BLOOD SPECIMEN Ordering Facility: External Submitter Address: , , Result Comment: The [place] Diabetes Association (ADA) provides guidance for cutoff values for fasting glucose and random glucose. The ADA defines fasting as no caloric intake for at least 8 hours. Fasting plasma glucose results between 100 to 125 mg/dL indicate increased risk for diabetes (prediabetes). Fasting plasma glucose results greater than or equal to 126 mg/dL meet the criteria for diagnosis of diabetes. In the absence of unequivocal hyperglycemia, results should be confirmed by repeat testing. In a patient with classic symptoms of hyperglycemia or hyperglycemic crisis, random plasma glucose results greater than or equal to 200 mg/dL meet the criteria for diagnosis of diabetes. Reference: Standards of Medical Care in Diabetes 2016, [place] [employer]. Diabetes Care. 2016.39(Suppl 1). Performed By: #### 2 4323-8, 3024-03, 3015-11 #### [facility] CLIA [id number] [address] [place] [id number] [place] Potassium [Moles/Vol] 4.0 mmol/L Normal 3.7-5.1 [facility] Comment on above: Order Comment: Gee vang Type: BLOOD SPECIMEN Ordering Facility: External Submitter Address: , , Performed By: #### 2 4323-8, 3024-03, 3015-11 #### [facility] CLIA [id number] [address] [address] [place] Protein [Mass/Vol] 7.7 g/dL Normal 6.3-8.0 [facility] Comment on above: Order Comment: Gee vang Type: BLOOD SPECIMEN Ordering Facility: External Submitter Address: , , Performed By: #### 2 4323-8, 3024-03, 3015-11 #### [facility] CLIA [id number] [address] [place] [address] [place] Sodium [Moles/Vol] 137 mmol/L Normal 136-144 [facility] Comment on above: Order Comment: Speci men Type: BLOOD SPECIMEN Ordering Facility: External Submitter Address: , , Performed By: #### 2 4323-8, 302-7, 3015-3 #### [facility] CLIA [id number] [address] [place] [address] [place] Urea nitrogen [Mass/Vol] 19 mg/dL Normal 9-24 [facility] Comment on above: Order Comment: Speci men Type: BLOOD SPECIMEN Ordering Facility: External Submitter Address: , , Performed By: #### 2 4323-8, 7, 3 #### [facility] CLIA [id number] [address] [place] [address] [place] T4 Free SerPl-mCncon 023 Free T4 [Mass/Vol] 1.1 ng/dL Normal 0.9-1.7 [facility] Comment on above: Order Comment: Speci men Type: BLOOD SPECIMEN Ordering Facility: External Submitter Address: , , Performed By: #### 2 4323-8, 3024-03, 3 #### [facility] CLIA [id number] [address] [place] [address] [place] TSH SerPl-aCncon 07-31-2023 TSH Qn 4.190 m[IU]/L Normal 0.270-4.200 [facility] Comment on above: Order Comment: Speci men Type: BLOOD SPECIMEN Ordering Facility: External Submitter Address: , , Performed By: #### 2 4323-8, 7, 3 #### [facility] CLIA [id number] [address] [place] [id number] [place] Ambulatory Visit Summaryon 1 Ambulatory Visit Summary NEIL WILCOX :1945 Visit Date:07/09/2023 Ambulatory Visit Instructions Your Diagnosis Intertrigo BPH without urinary obstruction Urethral meatal stenosis Urge incontinence Proteinuria Your Care Team Attending Physician - Trung FERGUSON MD Primary Care Physician - SAM COONEY DO This Is Your Medications List tolterodine (tolterodine 2 mg Cap-ER) Contact prescribing physician if questions or concerns APAP/butalbital/caffei ne (APAP/butalbital/caffe ine 325 mg-50 mg-40 mg Tab) Misc Prescription (Vertigo B-12 1,000 MCG TABLET) Non-Formulary Medication (Butapap cat 40mg PRN) apixaban (Eliquis 5 mg oral tablet) atorvastatin doxazosin (doxazosin 4 mg Tab) fluoxetine (FLUoxetine 20 mg Cap) folic acid (folic acid 1 mg Tab) lidocaine topical (Glydo 2% topical gel with applicator 11 mL) losartan (losartan 100 mg Tab) meclizine (meclizine 25 mg Tab) memantine (memantine 5 mg Tab) spironolactone (spironolactone 25 mg Tab) thyroid desiccated (Crosby Thyroid) Procedures Performed Urethral dilatation (11/03/2022), TURP - Transurethral resection of prostate (08/31/2022), Cystoscopy (01/24/2022), Colonoscopy, Shoulder replacement. Discharge Vitals Heart Rate (Peripheral) 68 Respiratory Rate 16 Blood Pressure 132/78 Height 175 cm Height 69 in Weight 79.5 kg Weight 174.9 lb BMI 25.96 What to do next You Need to Schedule the Following Appointments Follow Up with MARTY BETANCOURT, Trung Frost, JOSH When: In 4 months Where: [facility] [address] [place] [address]- Medications What How Much When Instructions Changed tolterodine (tolterodine 2 mg Cap-ER) 1 Capsules By Mouth Every day Pickup at [facility]/pharmacy #[id number] Unchanged APAP/ butalbital/ caffeine (APAP/ butalbital/ caffeine 325 mg-50 mg-40 mg Tab) Contact prescribing physician if questions or concerns Unchanged apixaban (Eliquis 5 mg oral tablet) Contact prescribing physician if questions or concerns Unchanged atorvastatin By Mouth Every day Contact prescribing physician if questions or concerns Unchanged doxazosin (doxazosin 4 mg Tab) Contact prescribing physician if questions or concerns Unchanged fluoxetine (FLUoxetine 20 mg Cap) Contact prescribing physician if questions or concerns Unchanged folic acid (folic acid 1 mg Tab) Contact prescribing physician if questions or concerns Unchanged lidocaine topical (Glydo 2% topical gel with applicator 11 mL) 10 Milliliter Topical As Directed Apply as needed prior to self dilation Contact prescribing physician if questions or concerns Unchanged losartan (losartan 100 mg Tab) By Mouth Every day Contact prescribing physician if questions or concerns Unchanged meclizine (meclizine 25 mg Tab) Contact prescribing physician if questions or concerns Unchanged memantine (memantine 5 mg Tab) Contact prescribing physician if questions or concerns Unchanged Misc Prescription ([facility] B-12 1,000 MCG TABLET) 0 Contact prescribing physician if questions or concerns Unchanged Non-Formulary Medication (Butapap cat 40mg PRN) Contact prescribing physician if questions or concerns Unchanged spironolactone (spironolactone 25 mg Tab) Contact prescribing physician if questions or concerns Unchanged thyroid desiccated (Crosby Thyroid) By Mouth Every day Contact prescribing physician if questions or concerns Pharmacy Information [facility]/pharmacy #[id number]: [address], [place] [id number] [phone] Allergies No Known Allergies Problems Ongoing - Any problem that you are currently receiving treatment for. BPH without urinary obstruction Hesitancy Hypertension Incomplete bladder emptying Intertrigo mild [place] (myocardial infarction) Nocturia Protein in urine Proteinuria Smoker Urethral meatal stenosis Urge incontinence Urinary incontinence without sensory awareness Urinary retention Education Materials Benign Prostatic Hyperplasia Benign prostatic hyperplasia (BPH) is an enlarged prostate gland that is caused by the normal aging process. The prostate may get bigger as a man gets older. The condition is not caused by cancer. The prostate is a walnut-sized gland that is involved in the production of semen. It is located in front of the rectum and below the bladder. The bladder stores urine. The urethra carries stored urine out of the body. An enlarged prostate can press on the urethra. This can make it harder to pass urine. The buildup of urine in the bladder can cause infection. Back pressure and infection may progress to bladder damage and kidney (renal) failure. What are the causes? This condition is part of the normal aging process. However, not all men develop problems from this condition. If the prostate enlarges away from the urethra, urine flow will not be blocked. If it enlarges toward the urethra and compresses it, there will be problems passing urine. What increases the risk? This condi (more content not included)... Normal [facility] Patient Educationon 07-09-20 Patient Education Urology Benign Prostatic Hyperplasia Benign prostatic hyperplasia (BPH) is an enlarged prostate gland that is caused by the normal aging process. The prostate may get bigger as a man gets older. The condition is not caused by cancer. The prostate is a walnut-sized gland that is involved in the production of semen. It is located in front of the rectum and below the bladder. The bladder stores urine. The urethra carries stored urine out of the body. An enlarged prostate can press on the urethra. This can make it harder to pass urine. The buildup of urine in the bladder can cause infection. Back pressure and infection may progress to bladder damage and kidney (renal) failure. What are the causes? This condition is part of the normal aging process. However, not all men develop problems from this condition. If the prostate enlarges away from the urethra, urine flow will not be blocked. If it enlarges toward the urethra and compresses it, there will be problems passing urine. What increases the risk? This condition is more likely to develop in men older than 50 years. What are the signs or symptoms? Symptoms of this condition include: ? Getting up often during the night to urinate. ? Needing to urinate frequently during the day. ? Difficulty starting urine flow. ? Decrease in size and strength of your urine stream. ? Leaking (dribbling) after urinating. ? Inability to pass urine. This needs immediate treatment. ? Inability to completely empty your bladder. ? Pain when you pass urine. This is more common if there is also an infection. ? Urinary tract infection (UTI). How is this diagnosed? This condition is diagnosed based on your medical history, a physical exam, and your symptoms. Tests will also be done, such as: ? A post-void bladder scan. This measures any amount of urine that may remain in your bladder after you finish urinating. ? A digital rectal exam. In a rectal exam, your health care provider checks your prostate by putting a lubricated, gloved finger into your rectum to feel the back of your prostate gland. This exam detects the size of your gland and any abnormal lumps or growths. ? An exam of your urine (urinalysis). ? A prostate specific antigen (PSA) screening. This is a blood test used to screen for prostate cancer. ? An ultrasound. This test uses sound waves to electronically produce a picture of your prostate gland. Your health care provider may refer you to a specialist in kidney and prostate diseases (urologist). How is this treated? Once symptoms begin, your health care provider will monitor your condition (active surveillance or watchful waiting). Treatment for this condition will depend on the severity of your condition. Treatment may include: ? Observation and yearly exams. This may be the only treatment needed if your condition and symptoms are mild. ? Medicines to relieve your symptoms, including: ? Medicines to shrink the prostate. ? Medicines to relax the muscle of the prostate. ? Surgery in severe cases. Surgery may include: ? Prostatectomy. In this procedure, the prostate tissue is removed completely through an open incision or with a laparoscope or robotics. ? Transurethral resection of the prostate (TURP). In this procedure, a tool is inserted through the opening at the tip of the penis (urethra). It is used to cut away tissue of the inner core of the prostate. The pieces are removed through the same opening of the penis. This removes the blockage. ? Transurethral incision (TUIP). In this procedure, small cuts are made in the prostate. This lessens the prostate's pressure on the urethra. ? Transurethral microwave thermotherapy (TUMT). This procedure uses microwaves to create heat. The heat destroys and removes a small amount of prostate tissue. ? Transurethral needle ablation (TUNA). This procedure uses radio frequencies to destroy and remove a small amount of prostate tissue. ? Interstitial laser coagulation (ILC). This procedure uses a laser to destroy and remove a small amount of prostate tissue. ? Transurethral electrovaporization (TUVP). This procedure uses electrodes to destroy and remove a small amount of prostate tissue. ? Prostatic urethral lift. This procedure inserts an implant to push the lobes of the prostate away from the urethra. Follow these instructions at home: ? Take rcyh-lpl-uxagvil and prescription medicines only as told by your health care provider. ? Monitor your symptoms for any changes. Contact your health care provider with any changes. ? Avoid drinking large amounts of liquid before going to bed or out in public. ? Avoid or reduce how much caffeine or alcohol you drink. ? Give yourself time when you urinate. ? Keep all follow-up visits. This is important. Contact a health care provider if: ? You have unexplained back pain. ? Your symptoms do not get better with treatment. ? You develop side effects from the medicine (more content not included)... Normal [facility] Urology Office/Clinic Noteon 07-09-2023 Urology Office/Clinic Note Chief Complaint 6m HPI Staff Pt is here with his . 6m DX: BPH, Urethral Stenosis, Urge Incontinence & Proteinuria *Finasteride 5mg qd therapy. At time of last encounter w/PRW 01/01/23, Tolterodine ER 4mg was decreased from qd to qod. Pt is with him, unsure if he is taking Tolterodine. TURP 07/01/22 Since then pt has been seen in our office x2 by LUI due to intertrigo. Tx'd w/ Ketoconazole Cream Rash did clear up since last seeing LUI. Enuresis on occasion. Sometimes the urge to void will wake him up. No longer self dilating. Has been wearing briefs day and night. Pt states he is not leaking, states that he would not realize it due to the brief making him feel dry. Denies pain/burning and visible blood in urine. pT was unable to provide urine specimen today. PVR 92ml History of Present Illness Tests reviewed: none. I have reviewed the previous health record information and history for this patient from . I have reviewed and verified the staff HPI to be accurate for this encounter. There have been no associated fever, chills, flank pain, or blood in the urine. Denies any urinary infections since last encounter. Review of Systems PHQ Score Initial Depression Screen Score: 0 ROS - Provider Constitutional: denies weight loss, denies hot flashes. Eyes: denies eye problems. Gastrointestinal: denies nausea, denies vomiting. Cardiovascular: denies chest pain or angina. Integumentary: no dryness Musculoskeletal: denies musculoskeletal symptoms. ENMT: denies otolaryngeal symptoms. Respiratory: no shortness of breath. Heme/Lymph: denies easy bleeding tendency, denies easy bruising tendency. Psychiatric: no confusion, no anxiety. Genitourinary: See HPI. Physical Exam Vitals & Measurements HR: 68(Peripheral) RR: 16 BP: 132/78 HT: 69 in HT: 175 cm WT: 79.5 kg WT: 174.9 lb BMI: 25.96 General Appearance: alert, no distress, well nourished, well developed male. Assessment/Plan 2. BPH without urinary obstruction (N40.0: Benign prostatic hyperplasia without lower urinary tract symptoms) S/p Cysto/UD, TURP 08/31/22. Finasteride 5mg qd therapy. At time of last encounter w/PRW 01/01/23, Tolterodine ER 4mg was decreased from qd to qod. Pt is with him, unsure if he is taking Tolterodine, feels like he is not taking this. Enuresis on occasion. Sometimes the urge to void will wake him up. Has been wearing briefs day and night. Pt states he is not leaking, states that he would not realize it due to the brief making him feel dry. Denies pain/burning and visible blood in urine. Pt was unable to provide urine specimen today. Random Scan 92ml Pt states that he has a solid stream, feels empty. Advised pt to take his time and ensure he is emptying completely. Pt states that he does leak at times, wears briefs, briefs are soaked in the morning. Advised pt that we will send a new script for Tolterodine 2mg ER QD. Follow up in 4 mos. All questions/concerns were discussed. Pt to call the office if he encounters any issues prior. Pt acknowledges understanding. -Continue Finasteride, start Tolterodine 2mg ER QD. Discussed the medication side effects, and the patient will monitor closely for these, as well as for symptom improvement. If severe side effects occur, the medication should be stopped and the office notified. 3. Urethral meatal stenosis (N35.919: Unspecified urethral stricture, male, unspecified site) S/p Cysto 11/03/22 - Tight meatus sealed shut. not a current problem. No longer self dilating. 5. Proteinuria (R80.9: Proteinuria, unspecified) Chronic. UA at previous OV showed small blood. No UA given today. Follow-up With When Contact Information MARTY BETANCOURT, JOSH Martin In 4 months [facility] [address], [place] [address]- Additional Instructions: Patient Education Benign Prostatic Hyperplasia I, Valentine Fuentes , personally scribed for Dr. Ferguson on 07/09/2023 11:38:56. . Documentation recorded by the scribe, Valentine Fuentes, accurately reflects the services(s) I performed and decisions made by me. Problem List/Past Medical History Ongoing BPH without urinary obstruction Hesitancy Hypertension Incomplete bladder emptying Intertrigo mild [place] (myocardial infarction) Nocturia Protein in urine Proteinuria Smoker Urethral meatal stenosis Urge incontinence Urinary incontinence without sensory awareness Urinary retention Historical No qualifying data Procedure/Surgical History Urethral dilatation (11/03/2022), TURP - Transurethral resection of prostate (08/31/2022), Cystoscopy (01/24/2022), Colonoscopy, Shoulder replacement. Medications APAP/butalbital/caffei ne 325 mg-50 mg-40 mg Tab Crosby Thyroid, Oral, Daily atorvastatin, Oral, Daily Butapap cat 40mg PRN CVS B-12 1,000 MCG TABLET, 0 doxazosin 4 mg Tab Eliquis 5 mg oral tablet FLUoxet (more content not included)... Normal [facility] Comment on above: Result Comment: Elec tronically Signed By: Trung FERGUSON MD\.br\Date and Time Signed: 07/09/23 11:43 EDT\.br\Electronically Co-Signed By: Valentine Fuentes\.br\Date and Time Co-Signed: 07/09/23 11:39 EDT Office Visit (Cardiology)on 06-11-2023 Follow-up visit Diagnoses/Problems Assessed Overweight with body mass index (BMI) of 26 to 26.9 in adult (278.02,V85.22) (E66.3,Z68.26) Atrial fibrillation, currently in sinus rhythm (427.31) (Z86.79) Frequent falls (V15.88) (R29.6) Anemia (285.9) (D64.9) High risk medication use (V58.69) (Z79.899) Mixed hyperlipidemia (272.2) (E78.2) Orthostatic hypotension (458.0) (I95.1) Former smoker (V15.82) (Z87.891) Quit 1959's Anticoagulated (V58.61) (Z79.01) Orders Anemia Complete Blood Count; Status:Active; Requested for:[id number]; Atrial fibrillation, currently in sinus rhythm, Frequent falls Cardiology - Valve and Structural Heart Program Referral Evaluation and Treatment Evaluate AND Treat Status: Hold For - Scheduling Requested for: 11Jun2023 SocHx: Former smoker Tobacco Use Screening; Status:Complete; Done: [id number] Patient Instructions Please bring all medicines, vitamins, and herbal supplements with you when you come to the office. Prescriptions will not be filled unless you are compliant with your follow up appointments or have a follow up appointment scheduled as per instruction of your physician. Refills should be requested at the time of your visit. Fall prevention education given referral to Dr. Cobb for watchmen. patient to call back after review of medication ( if Patient is taking losartan 100 mg once daily, needs to reduce to 50 mg once daily and d/c amlodipine 5 mg once daily.) clear to have left shoulder surgery, okay to hold eliquis 48 hr prior to surgery. Follow up in 3 months Chief Complaint NEIL WILCOX is being seen for a 3 month follow-up of. History of Present Illness 77-year-old with history of atrial fibrillation, hypercoagulability related to atrial fibrillation, high [id number] score, most recently seen February 2023 and presents for follow-up. Had sleep study, diagnosed with moderate sleep apnea, will have follow-up with sleep service Had a mechanical fall, tripped on a cord, fell, broke left shoulder, left arm is in a sling. This happened 3 weeks ago. reports multiple falls over the past 6 months to a year. She says he averages about 6 falls a year. Does not report any shortness of breath or palpitations. There is a 10 mm drop in systolic blood pressure sitting to standing. Laboratory data reviewed, patient has anemia. interrogation from May-there are bouts of atrial tachycardia and atrial fibrillation, overall atrial fibrillation burden is close to 1%. Reviewed laboratory data to include basic metabolic profile lipid profile and comprehensive profile and CBC. Hemoglobin 9.1 hematocrit 27 MCV 109 platelets are 99 white blood cell count 2.8 TSH and free T43.33 And 0.17 respectively. In July 2022 hemoglobin and hematocrit were 12 and 34 respectively. Unsure as to whether patient is taking losartan. Losartan is noted among the medication bottles that patient brought in. Patient's will call to update. Assessment: 1. Hypertension-blood pressure today is low, and patient has orthostatic hypotension, today however blood pressure is only 10 mm down between sitting and standing. 3. Lexiscan Myoview September 2021-normal patient with hypertension at that time as well 3. 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 Recent lab results are within normal limits. 4.Hyperlipidemia-on statin therapy, lipid profile is at target 5.BPH-on medications 6. Left frontoparietal stroke 7. Echocardiogram November 2019-LVEF 55% normal LV wall thickness normal left atrial size negative bubble study mild aortic regurgitation mild mitral regurgitation trivial tricuspid regurgitation unable to estimate RV systolic pressure. Left atrial volume index was reported to be 41 mL/m which actually would suggest left atrial enlargement. Normal IVC diameter and inspiratory collapse 8. Paroxysmal atrial fibrillation with rapid ventricular rate based on loop recorder interrogation report from July 2022. Patient does not have much in the way of symptoms. 9. Hypercoagulability due to atrial fibrillation, on anticoagulation. 10. [id number] at least 5. Has bled score 2 insurance changed, now able to afford Eliquis. 11. Frequent falls, risk of injury due to fall. 12. New anemia, possibly related to extensive ecchymosis left arm after the fall. No GI bleeding reported Recommendations: 1.Extensive discussion about referral for Watchman device. Reluctantly patient and are in agreement. 2. Referral to Dr. Cobb for Watchman device was initiated 3. Titrate blood pressure medications to upright blood pressure 4. Follow-up in August 2023. 5. Recheck CBC prior to next visit 6. If patient is currently on losartan 100 mg p.o. daily, I will reduce the dose to 50 mg p.o. daily and discontinue amlodipine. Surgical History Problems History of Complete colonoscopy Managed By: Don BETANCOURT, Bg Frost (Gastroenterology) History of Loop recorder insertion History of Rotator cuff rep (more content not included)... Normal [facility] Tobacco Screening.on 023 Fall risk assessment b) One or more fall s in the last year -[facility] [address] DO Work Phone: Tobacco use status [facility] b) No M P-[facility] [address] DO Work Phone: Tobacco Screening. Yes MP-[facility] [address] DO Work Phone: Patient Educationon 04-03-20 Patient Education Obstetrics and Gynecology Kegel Exercises Kegel exercises can help strengthen your pelvic floor muscles. The pelvic floor is a group of muscles that support your rectum, small intestine, and bladder. In females, pelvic floor muscles also help support the uterus. These muscles help you control the flow of urine and stool (feces). Kegel exercises are painless and simple. They do not require any equipment. Your provider may suggest Kegel exercises to: ? Improve bladder and bowel control. ? Improve sexual response. ? Improve weak pelvic floor muscles after surgery to remove the uterus (hysterectomy) or after , in females. ? Improve weak pelvic floor muscles after prostate gland removal or surgery, in males. Kegel exercises involve squeezing your pelvic floor muscles. These are the same muscles you squeeze when you try to stop the flow of urine or keep from passing gas. The exercises can be done while sitting, standing, or lying down, but it is best to vary your position. Ask your health care provider which exercises are safe for you. Do exercises exactly as told by your health care provider and adjust them as directed. Do not begin these exercises until told by your health care provider. Exercises How to do Kegel exercises: 1. Squeeze your pelvic floor muscles tight. You should feel a tight lift in your rectal area. If you are a female, you should also feel a tightness in your vaginal area. Keep your stomach, buttocks, and legs relaxed. 2. Hold the muscles tight for up to 10 seconds. 3. Breathe normally. 4. Relax your muscles for up to 10 seconds. 5. Repeat as told by your health care provider. Repeat this exercise daily as told by your health care provider. Continue to do this exercise for at least 4?6 weeks, or for as long as told by your health care provider. You may be referred to a physical therapist who can help you learn more about how to do Kegel exercises. Depending on your condition, your health care provider may recommend: ? Varying how long you squeeze your muscles. ? Doing several sets of exercises every day. ? Doing exercises for several weeks. ? Making Kegel exercises a part of your regular exercise routine. This information is not intended to replace advice given to you by your health care provider. Make sure you discuss any questions you have with your health care provider. Document Revised: 01/19/2022 Document Reviewed: 01/19/2022 [employer] Patient Education ? 2022 [employer] [facility] Urology Office/Clinic Noteon 04-03-2023 Urology Office/Clinic Note Chief Complaint 8 week F/U HPI Staff PRW pt 2m follow up to intertrigo. *Ketoconazole Cream 2-3wk therapy given at time of last encounter w/LUI. Tolterodine 4mg ER was decreased to QOD vs QD at time of last encounter w/PRW. Pt self dilates. Does have 6m follow up with PRW 07/09/23. Pt. states rash is better. Dysuria: no Incomplete bladder emptying: no Hematuria: UA shows small today Frequency: every couple hours Urgency: occasionally Nocturia: 1x Stream: good stream Post void dripping: occasionally mild Wearing pads/ Depends: yes Pt. wears pads, Pt. will use 1 a day Urge incontinence: occasionally mild Stress incontinence: no Incontinence without Sensory Awareness: occasionally Abdominal pain: no Flank pain: _no History of Present Illness staff HPI reviewed and agree. Review of Systems PHQ Score Initial Depression Screen Score: 0 no fever, chills, malaise, myalgia. no rash/lesions. no chest pain, palpitations, or SOB. no abdominal pain, nausea, vomiting. no unilateral calf swelling, redness, pain Physical Exam Vitals & Measurements HR: 58(Peripheral) RR: 16 BP: 96/56 HT: 69 in HT: 175 cm WT: 81 kg WT: 178.2 lb BMI: 26.45 General: nontoxic, NAD Mouth: moist mucosa Lungs: normal respiratory effort Cardio: regular rate, good distal perfusion Abdomen: nondistended, no suprapubic distention or tenderness, no CVA tenderness Neurologic: Grossly normal Skin: No rashes or suspicious lesions : complete resolution of rash Assessment/Plan 1. Intertrigo (L30.4: Erythema intertrigo) Pt was treated with ketoconazole cream for x 2-3 weeks. Pt states his rash has completely gone away. Advised pt to keep the area clean and DRY moving fwd to prevent recurrence. 2. BPH without urinary obstruction (N40.0: Benign prostatic hyperplasia without lower urinary tract symptoms) S/p Cysto/UD, TURP 08/31/22. Pt has a follow up appointment with on 07/09/23. 3. Urethral meatal stenosis (N35.919: Unspecified urethral stricture, male, unspecified site) Cysto 11/03/22 - Tight meatus sealed shut. Continues self dilating w/o complaint. Uses OTC lidocaine gel, no script needed. -Cont self dilation F/u - see #2 4. Urge incontinence (N39.41: Urge incontinence) Pt is currently taking Tolterodine 4 mg ER QD, if there was no change with the med, pt was to d/c after a month. F/u - see #2 5. Proteinuria (R80.9: Proteinuria, unspecified) Chronic. UA today shows small blood. F/u - see #2 Follow-up With When Contact Information CHARLOTTE BAKER PA-C, URL [address] [facility] [place] [address] Additional Instructions: keep appt w/ Patient Education Kegel Exercises Documentation recorded by the hubert Fuentes accurately reflects the services(s) I performed and decisions made by me. Authenticated by Charlotte Baker PA-C on 04/03/2023 09:50:52. IValentine, personally scribed for Charlotte Baker PA-C on 04/03/2023 09:31:40. . Problem List/Past Medical History Ongoing BPH without urinary obstruction Hesitancy Hypertension Incomplete bladder emptying Intertrigo mild [place] (myocardial infarction) Nocturia Protein in urine Proteinuria Smoker Urethral meatal stenosis Urge incontinence Urinary incontinence without sensory awareness Urinary retention Historical No qualifying data Procedure/Surgical History Urethral dilatation (11/03/2022), TURP - Transurethral resection of prostate (08/31/2022), Cystoscopy (01/24/2022), Colonoscopy, Shoulder replacement. Medications amLODIPine 5 mg Tab Crosby Thyroid, Oral, Daily aspirin 81 mg oral tablet, Oral, Daily atorvastatin, Oral, Daily Butapap cat 40mg PRN clopidogrel, Oral FLUoxetine 20 mg Cap Glydo 2% topical gel with applicator 11 mL, 0.2 gm= 10 mL, Topical, As Directed, 6 refills Immodium A-D 2 mg Cap losartan 100 mg Tab, Oral, Daily meclizine 25 mg Tab tolterodine 4 mg Cap-ER, 4 mg= 1 cap(s), Oral, Daily, 6 refills Allergies No Known Allergies Social History Alcohol - Low Risk, 12/29/2019 Tobacco Never (less than 100 in lifetime) Tobacco Use:. Never Smokeless Tobacco Use:. Yes, 04/03/2023 Family History Arthritis: Father. Hypertension: Father. Immunizations Vaccine Date Status influenza virus vaccine, inactivated 10/09/2022 Recorded influenza virus vaccine, inactivated 10/09/2021 Recorded SARS-CoV-2 (COVID-19) Ad26 vaccine 11/29/2020 Recorded influenza virus vaccine, inactivated 09/06/2019 Recorded influenza virus vaccine, inactivated 06/24/2019 Recorded influenza virus vaccine, inactivated 08/04/2018 Recorded influenza virus vaccine, inactivated 05/25/2018 Recorded influenza virus vaccine, inactivated 09/21/2017 Recorded pneumococcal 23-valent vaccine 09/24/2016 Recorded pneumococcal 13-valent vaccine 10/19/2015 Recorded pneumococcal 23-valent vaccine 07/12/ (more content not included)... Normal [facility] Comment on above: Result Comment: Elec tronically Signed By: CHARLOTTE BAKER PA-C\.br\Date and Time Signed: 04/03/23 09:51 EDT\.br\Electronically Co-Signed By: Valentine Fuentes\.br\Date and Time Co-Signed: 04/03/23 09:31 EDT Office Visit (Cardiology)on 02-26-2023 Follow-up visit Diagnoses/Problems Assessed Anticoagulated (V58.61) (Z79.01) Atrial fibrillation, currently in sinus rhythm (427.31) (Z86.79) High risk medication use (V58.69) (Z79.899) Hypertension (401.9) (I10) Implantable loop recorder present (V45.09) (Z95.818) Mixed hyperlipidemia (272.2) (E78.2) Hypotension (arterial) (458.9) (I95.9) Medication course changed (V58.69) (Z79.899) Sinus bradycardia (427.89) (R00.1) Orthostatic hypotension (458.0) (I95.1) Overweight with body mass index (BMI) of 25 to 25.9 in adult (278.02,V85.21) (E66.3,Z68.25) Former smoker (V15.82) (Z87.891) Quit 1960's Orders Anticoagulated, Atrial fibrillation, currently in sinus rhythm, BPH (benign prostatic hyperplasia), SocHx: Former smoker, High risk medication use, Hypertension, Hypotension (arterial), Medication course changed, Overweight with body mass index (BMI) of 25 to 25.9 in adult, TIA (transient ischemic attack) Complete Blood Count; Status:Active; Requested for:26Feb2023; Comprehensive Metabolic Panel; Status:Active; Requested for:26Feb2023; Lipid Panel; Status:Active; Requested for:26Feb2023; T4 - Free Thyroxine, Serum; Status:Active; Requested for:26Feb2023; TSH - Thyroid Stimulating Hormone, Serum; Status:Active; Requested for:26Feb2023; Atrial fibrillation, currently in sinus rhythm, Hypertension Start: Metoprolol Succinate ER 25 MG Oral Tablet Extended Release 24 Hour; TAKE 1 TABLET DAILY Hypertension Start: amLODIPine Besylate 5 MG Oral Tablet; TAKE 1 TABLET BY MOUTH EVERY DAY Renew: Doxazosin Mesylate 4 MG Oral Tablet; TAKE 1 TABLET DAILY Renew: Spironolactone 25 MG Oral Tablet; TAKE 1 TABLET DAILY Mixed hyperlipidemia Renew: Atorvastatin Calcium 40 MG Oral Tablet; TAKE 1 TABLET AT BEDTIME Overweight with body mass index (BMI) of 25 to 25.9 in adult Healthy Weight Tips; Status:Complete; Done: 26Feb2023 Some eating tips that can help you lose weight.; Status:Complete; Done: 26Feb2023 SocHx: Former smoker Tobacco Use Screening; Status:Complete; Done: 26Feb2023 Tobacco Use Screening; Status:Complete; Done: 26Feb2023 Unlinked Stop: amLODIPine Besylate 10 MG Oral Tablet Patient Instructions Please bring all medicines, vitamins, and herbal supplements with you when you come to the office. Prescriptions will not be filled unless you are compliant with your follow up appointments or have a follow up appointment scheduled as per instruction of your physician. Refills should be requested at the time of your visit. Patient provided Falls Prevention education sheet. patient to take metoprolol 25 mg Doxazosin in the PM. and Losartan and Spirolactone in the AM Follow up in 3 months Decrease Amlodipine 5 mg once daily and Metoprolol Succinate 25 Once daily Device check as directed per [facility] protocol Chief Complaint NEIL WILCOX is being seen for a 6 month follow-up of. History of Present Illness 77-year-old is accompanied by to the office. Last seen by me in September 2022 and soon thereafter seen by Loulou Arreguin NP. At last office visit blood pressure was suboptimally controlled. Patient complains of fatigue. His blood pressure is low in the 90s systolic, orthostatics were checked, and there is orthostatic hypotension standing blood pressure is 80 mmHg. Remains on high risk medication Eliquis with no bleeding diathesis. Denies palpitations chest pressure tightness or heaviness. Denies any falls. No recent laboratory data to review. Assessment: 1. Hypertension-blood pressure today is low, and patient has orthostatic hypotension, fatigue could be related to this. 3. Lexiscan Myoview September 2021-normal patient with hypertension at that time as well 3. 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 4.Hyperlipidemia-on statin therapy 5.BPH-on medications 6. Left frontoparietal stroke 7. Echocardiogram November 2019-LVEF 55% normal LV wall thickness normal left atrial size negative bubble study mild aortic regurgitation mild mitral regurgitation trivial tricuspid regurgitation unable to estimate RV systolic pressure. Left atrial volume index was reported to be 41 mL/m which actually would suggest left atrial enlargement. Normal IVC diameter and inspiratory collapse 8. Paroxysmal atrial fibrillation with rapid ventricular rate based on loop recorder interrogation report from July 2022. Patient does not have much in the way of symptoms. 9. Hypercoagulability due to atrial fibrillation, on anticoagulation. 10. [id number] at least 5. Has bled score 2 insurance changed, now able to afford Eliquis. 1 Recommendations: 1. Decrease metoprolol succinate to 25 mg p.o. daily,in view of sinus bradycardia and arterial hypotension. 1 2. Decrease amlodipine from 10 mg daily to 5 mg daily 3. Keep home blood pressure log, in the morning and then 2 hours after morning medications 4. CBC Free T4 TSH comprehensive profile and lipid profile in the near future 5. Stagger medications, take losartan in (more content not included)... Normal [employer] Tobacco Screening.on 023 Fall risk assessment b) One or more fall s in the last year [facility] [address] DO Work Phone: Tobacco use status CP b) No M [facility] [email or web address] [place] [address] DO Work Phone: Patient Educationon 01-24-20 23 Patient Education Endocrinology Intertrigo Intertrigo is skin irritation or inflammation (dermatitis) that occurs when folds of skin rub together. The irritation can cause a rash and make skin raw and itchy. This condition most commonly occurs in the skin folds of these areas: ? Toes. ? Armpits. ? Groin. ? Under the belly. ? Under the breasts. ? Buttocks. Intertrigo is not passed from person to person (is not contagious). What are the causes? This condition is caused by heat, moisture, rubbing (friction), and not enough air circulation. The condition can be made worse by: ? Sweat. ? Bacteria. ? A fungus, such as yeast. What increases the risk? This condition is more likely to occur if you have moisture in your skin folds. You are more likely to develop this condition if you: ? Have diabetes. ? Are overweight. ? Are not able to move around or are not active. ? Live in a warm and moist climate. ? Wear splints, braces, or other medical devices. ? Are not able to control your bowels or bladder (have incontinence). What are the signs or symptoms? Symptoms of this condition include: ? A pink or red skin rash in the skin fold or near the skin fold. ? Raw or scaly skin. ? Itchiness. ? A burning feeling. ? Bleeding. ? Leaking fluid. ? A bad smell. How is this diagnosed? This condition is diagnosed with a medical history and physical exam. You may also have a skin swab to test for bacteria or a fungus. How is this treated? This condition may be treated by: ? Cleaning and drying your skin. ? Taking an antibiotic medicine or using an antibiotic skin cream for a bacterial infection. ? Using an antifungal cream on your skin or taking pills for an infection that was caused by a fungus, such as yeast. ? Using a steroid ointment to relieve itchiness and irritation. ? the skin fold with a clean cotton cloth to absorb moisture and allow air to flow into the area. Follow these instructions at home: ? Keep the affected area clean and dry. ? Do not scratch your skin. ? Stay in a cool environment as much as possible. Use an air conditioner or fan, if available. ? Apply xlos-ccg-zvopzhs and prescription medicines only as told by your health care provider. ? If you were prescribed an antibiotic medicine, use it as told by your health care provider. Do not stop using the antibiotic even if your condition improves. ? Keep all follow-up visits as told by your health care provider. This is important. How is this prevented? ? Maintain a healthy weight. ? Take care of your feet, especially if you have diabetes. Foot care includes: ? Wearing shoes that fit well. ? Keeping your feet dry. ? Wearing clean, breathable socks. ? Protect the skin around your groin and buttocks, especially if you have incontinence. Skin protection includes: ? Following a regular cleaning routine. ? Using skin protectant creams, powders, or ointments. ? Changing protection pads frequently. ? Do not wear tight clothes. Wear clothes that are loose, absorbent, and made of cotton. ? Wear a bra that gives good support, if needed. ? Shower and dry yourself well after activity or exercise. Use a driver wheelchair on a cool setting to dry between skin folds, especially after you bathe. ? If you have diabetes, keep your blood sugar under control. Contact a health care provider if: ? Your symptoms do not improve with treatment. ? Your symptoms get worse or they spread. ? You notice increased redness and warmth. ? You have a fever. Summary ? Intertrigo is skin irritation or inflammation (dermatitis) that occurs when folds of skin rub together. ? This condition is caused by heat, moisture, rubbing (friction), and not enough air circulation. ? This condition may be treated by cleaning and drying your skin and with medicines. ? Apply roty-zoz-lnnueim and prescription medicines only as told by your health care provider. ? Keep all follow-up visits as told by your health care provider. This is important. This information is not intended to replace advice given to you by your health care provider. Make sure you discuss any questions you have with your health care provider. Document Revised: 06/26/2022 Document Reviewed: 06/26/2022 [employer] Patient Education ? 2022 [employer] [facility] Urology Office/Clinic Noteon 01-23-2023 Urology Office/Clinic Note Chief Complaint Rash HPI Staff PRW pt that is here today due to rash. Pt last seen in our office 01/01/23 due to BPH, urethral meatal stenosis, urge incontinence & proteinuria. *Tolterodine 4mg ER was decreased to QOD vs QD at time of last encounter. Self dilates QD. Rash has been in groin area for a while . Denies associated pain. Does apply a cream to it at least 1x/day. Does not know the name. It is his 's cream, states it is for sores. No improvement. Denies any urinary concerns at this time. Review of Systems PHQ Score Initial Depression Screen Score: 0 no fever, chills, malaise, myalgia. no rash/lesions. no chest pain, palpitations, or SOB. no abdominal pain, nausea, vomiting. no unilateral calf swelling, redness, pain Physical Exam Vitals & Measurements HR: 78(Peripheral) RR: 16 BP: 130/76 HT: 69 in HT: 175 cm WT: 81 kg WT: 178.2 lb BMI: 26.45 General: nontoxic, NAD Mouth: moist mucosa Lungs: normal respiratory effort Cardio: regular rate, good distal perfusion Abdomen: nondistended, no suprapubic distention or tenderness, no CVA tenderness Neurologic: Grossly normal Skin: beefy red rash w satellite lesions consistent w yeast in bilateral inguinal folds Assessment/Plan 1. Intertrigo (L30.4: Erythema intertrigo) advised to dc whatever cream he's been borrowing from his . rx ketoconazole cream x 2-3 weeks. pt to call office if no improvement by that time. keep area clean and DRY moving fwd to prevent recurrence. f/u 8 wks to reassess. Ordered: ketoconazole topical, See Instructions, 15 gm, Refill(s) 0, cover affected area once daily x 2-3 weeks. if no improvement contact office., [id number], 175, cm, 01/23/23 14:14:00 EDT, Height/Length Dosing, 81, kg, 01/23/23 14:14:00 EDT, Weight Dosing E&M of Est. Patient Low 20-29 Min [id number] Orders: Urnls Dip Stick Auto w/o Microscopy POC [id number] Follow-up No qualifying data available f/u LUI 8 wks. keep previously scheduled f/u w PRW this fall. Patient Education Intertrigo Problem List/Past Medical History Ongoing BPH without urinary obstruction Hesitancy Hypertension Incomplete bladder emptying mild [place] (myocardial infarction) Nocturia Protein in urine Proteinuria Smoker Urethral meatal stenosis Urge incontinence Urinary incontinence without sensory awareness Urinary retention Historical No qualifying data Procedure/Surgical History Urethral dilatation (11/03/2022), TURP - Transurethral resection of prostate (08/31/2022), Cystoscopy (01/24/2022), Colonoscopy, Shoulder replacement. Medications amLODIPine 5 mg Tab Crosby Thyroid, Oral, Daily aspirin 81 mg oral tablet, Oral, Daily atorvastatin, Oral, Daily Butapap cat 40mg PRN clopidogrel, Oral FLUoxetine 20 mg Cap Glydo 2% topical gel with applicator 11 mL, 0.2 gm= 10 mL, Topical, As Directed, 6 refills Immodium A-D 2 mg Cap ketoconazole Top 2% Crm, See Instructions losartan 100 mg Tab, Oral, Daily meclizine 25 mg Tab tolterodine 4 mg Cap-ER, 4 mg= 1 cap(s), Oral, Daily, 6 refills Allergies No Known Allergies Social History Alcohol - Low Risk, 12/29/2019 Tobacco Never (less than 100 in lifetime) Tobacco Use:. Never Smokeless Tobacco Use:. Yes, 01/23/2023 Family History Arthritis: Father. Hypertension: Father. Immunizations Vaccine Date Status influenza virus vaccine, inactivated 10/09/2022 Recorded influenza virus vaccine, inactivated 10/09/2021 Recorded SARS-CoV-2 (COVID-19) Ad26 vaccine 11/29/2020 Recorded influenza virus vaccine, inactivated 09/06/2019 Recorded influenza virus vaccine, inactivated 06/24/2019 Recorded influenza virus vaccine, inactivated 08/04/2018 Recorded influenza virus vaccine, inactivated 05/25/2018 Recorded influenza virus vaccine, inactivated 09/21/2017 Recorded pneumococcal 23-valent vaccine 09/24/2016 Recorded pneumococcal 13-valent vaccine 10/19/2015 Recorded pneumococcal 23-valent vaccine 07/12/2015 Recorded zoster vaccine live 2014 Recorded influenza virus vaccine, inactivated 08/08/2011 Recorded influenza, whole 07/14/2009 Recorded Lab Results Ambulatory Point of Care Results Bilirubin Urine Dipstick: Negative (01/23/23 14:11:00) Blood Urine Dipstick: Trace-intact (01/23/23 14:11:00) Glucose Urine Dipstick: Negative (01/23/23 14:11:00) Ketones Urine Dipstick: Negative (01/23/23 14:11:00) Leukocytes Urine Dipstick: Negative (01/23/23 14:11:00) Nitrite Urine Dipstick: Negative (01/23/23 14:11:00) Protein Urine Dipstick: 1+ (30 mg/dl) (01/23/23 14:11:00) Specific [place] Urine Dipstick: >=1.030 (01/23/23 14:11:00) Urine Appearance Urine Dipstick: Clear (01/23/23 14:11:00) Urine Color Urine Dipstick: Yellow (01/23/23 14:11:00) Urobilinogen Urine Dipstick: Normal 0.2-1 EU/dl (01/23/23 14:11:00) pH Urine Dipstick: 5.5 (01/23/23 14:11:00) Normal [facility] Comment on above: Result Comment: Elec tronically Signed By: CHARLOTTE BAKER PA-C\.br\Date and Time Signed: 01/23/23 14:45 EDT Patient Educationon 01-02-20 Patient Education Urology Urethral Stricture Urethral stricture is narrowing of the tube (urethra) that carries urine from the bladder out of the body. The urethra can become narrow due to scar tissue from an injury or infection. This can make it difficult to pass urine. In women, the urethra opens above the vaginal opening. In men, the urethra opens at the tip of the penis, and the urethra is much longer than it is in women. Because of the length of the male urethra, urethral stricture is much more common in men. This condition is treated with surgery. What are the causes? In both men and women, common causes of urethral stricture include: ? Urinary tract infection (UTI). ? Sexually transmitted infection (STI). ? Use of a tube placed into the urethra to drain urine from the bladder (urinary catheter). ? Urinary tract surgery. In men, common causes of urethral stricture include: ? A severe injury to the pelvis. ? Prostate surgery. ? Injury to the penis. In many cases, the cause of urethral stricture is not known. What increases the risk? You are more likely to develop this condition if you: ? Are male. Men who have had prostate surgery are at risk of developing this condition. ? Use a urinary catheter. ? Have had urinary tract surgery. What are the signs or symptoms? The main symptom of this condition is difficulty passing urine. This may cause decreased urine flow, dribbling, or spraying of urine. Other symptom of this condition may include: ? Frequent UTIs. ? Blood in the urine. ? Pain when urinating. ? Swelling of the penis in men. ? Inability to pass urine (urinary obstruction). How is this diagnosed? This condition may be diagnosed based on: ? Your medical history and a physical exam. ? Urine tests to check for infection or bleeding. ? X-rays. ? Ultrasound. ? Retrograde urethrogram. This is a type of test in which dye is injected into the urethra and then an X-ray is taken. ? Urethroscopy. This is when a thin tube with a light and camera on the end (urethroscope) is used to look at the urethra. How is this treated? This condition is treated with surgery. The type of surgery that you have depends on the severity of your condition. You may have: ? Urethral dilation. In this procedure, the narrow part of the urethra is stretched open (dilated) with dilating instruments or a small balloon. ? Urethrotomy. In this procedure, a urethroscope is placed into the urethra, and the narrow part of the urethra is cut open with a surgical blade inserted through the urethroscope. ? Open surgery. In this procedure, an incision is made in the urethra, the narrow part is removed, and the urethra is reconstructed. Follow these instructions at home: ? Take vnkb-lnl-tavjujq and prescription medicines only as told by your health care provider. ? If you were prescribed an antibiotic medicine, take it as told by your health care provider. Do not stop taking the antibiotic even if you start to feel better. ? Drink enough fluid to keep your urine pale yellow. ? Keep all follow-up visits as told by your health care provider. This is important. Contact a health care provider if: ? You have signs of a urinary tract infection, such as: ? Frequent urination or passing small amounts of urine frequently. ? Needing to urinate urgently. ? Pain or burning with urination. ? Urine that smells bad or unusual. ? Cloudy urine. ? Pain in the lower abdomen or back. ? Trouble urinating. ? Blood in the urine. ? Vomiting or being less hungry than normal. ? Diarrhea or abdominal pain. ? Vaginal discharge, if you are female. ? Your symptoms are getting worse instead of better. Get help right away if: ? You cannot pass urine. ? You have a fever. ? You have swelling, bruising, or discoloration of your genital area. This includes the penis, scrotum, and inner thighs for men, and the outer genital organs (vulva) and inner thighs for women. ? You develop swelling in your legs. ? You have difficulty breathing. Summary ? Urethral stricture is narrowing of the tube (urethra) that carries urine from the bladder out of the body. The urethra can become narrow due to scar tissue from an injury or infection. ? This condition can make it difficult to pass urine. ? This condition is treated with surgery. The type of surgery that you have depends on the severity of your condition. ? Contact a health care provider if your symptoms get worse or you have signs of a urinary tract infection. This information is not intended to replace advice given to you by your health care provider. Make sure you discuss any questions you have with your health care provider. Document Released: 10/06/2016 Document Revised: 04/23/2019 Document Reviewed: 04/23/2019 [employer] Patient Education ? 2019 [employer] Normal [facility] Urology Office/Clinic Noteon 01-01-2023 Urology Office/Clinic Note Chief Complaint 3 month f/u HPI Staff 3 month f/u. Previous dx of BPH without obstruction (TURP 08/31/22), urinary retention, urethral meatal stenosis, urge incontinence and proteinuria. Dysuria: no Incomplete bladder emptying: no Hematuria: no Frequency: varies Urgency: no Nocturia: 1x Stream: varies, states that sometimes it is really good and others it can be a little weak Leaking: very rare Post void dripping: no Wearing pads/ Depends: no Urge incontinence: no Stress incontinence: no Incontinence without Sensory Awareness: no Abdominal pain: no Flank pain: no Sexual complaints: no History of Present Illness Tests reviewed: reviewed UA. I have reviewed the previous health record information and history for this patient from Dr. Ferguson. I have reviewed and verified the staff HPI to be accurate for this encounter. There have been no associated fever, chills, flank pain, or blood in the urine. Denies any urinary infections since last encounter. Review of Systems PHQ Score Initial Depression Screen Score: 0 ROS - Provider Constitutional: denies weight loss, denies hot flashes. Eyes: denies eye problems. Gastrointestinal: denies nausea, denies vomiting. Cardiovascular: denies chest pain or angina. Integumentary: no dryness Musculoskeletal: denies musculoskeletal symptoms. ENMT: denies otolaryngeal symptoms. Respiratory: no shortness of breath. Heme/Lymph: denies easy bleeding tendency, denies easy bruising tendency. Psychiatric: no confusion, no anxiety. Genitourinary: See HPI. Physical Exam Vitals & Measurements HR: 67(Peripheral) RR: 16 BP: 135/88 HT: 69 in HT: 175 cm WT: 81 kg WT: 178.2 lb BMI: 26.45 General Appearance: alert, no distress, well nourished, well developed male. Genitourinary: normal scrotum, normal testes, normal urethra, normal epididymis, normal vas deferens/spermatic cord. Flank Pain: none. Bladder: nonpalpable. Assessment/Plan 1. BPH without urinary obstruction (N40.0: Benign prostatic hyperplasia without lower urinary tract symptoms) S/p Cysto/UD, TURP 08/31/22. UA today negative for blood and infection. Taking Finasteride 5 mg qd. Good stream. Feels he empties completely. Follow up 6 mos with UA or sooner if needed. Pt understands and agrees with plan. 2. Urethral meatal stenosis (N35.919: Unspecified urethral stricture, male, unspecified site) Cysto 11/03/22 - Tight meatus sealed shut. Continues self dilating w/o complaint. Uses OTC lidocaine gel, no script needed. -Cont self dilation 3. Urge incontinence (N39.41: Urge incontinence) Taking Tolterodine 4 mg ER qd. Has time to make it to the bathroom. Still wears pads. -Decrease Tolterodine 4 mg ER from qd to qod. If experiencing urgency/urge incontinence on days when not taking, go back to qd. If no change when taking qod, then d/c med after a month. 4. Proteinuria (R80.9: Proteinuria, unspecified) Chronic. UA today shows 100 mg/dl (100). Follow-up With When Contact Information MARTY BETANCOURT, Trung Frost, [facility] [address], [place] [address]- Additional Instructions: 6 mos with UA Patient Education Urethral Stricture I, Jessica Landrum, personally scribed for Dr. Ferguson on 01/01/2023 13:19:03. . Documentation recorded by the scribe, Jessica Landrum, accurately reflects the services(s) I performed and decisions made by me. Authenticated by Dr. Ferguson on 01/01/2023 13:24:19. Problem List/Past Medical History Ongoing BPH without urinary obstruction Hesitancy Hypertension Incomplete bladder emptying mild [place] (myocardial infarction) Nocturia Protein in urine Proteinuria Smoker Urethral meatal stenosis Urge incontinence Urinary incontinence without sensory awareness Urinary retention Historical No qualifying data Procedure/Surgical History TURP - Transurethral resection of prostate (08/31/2022), Cystoscopy (01/24/2022), Colonoscopy, Shoulder replacement. Medications amLODIPine 5 mg Tab [place] Thyroid, Oral, Daily aspirin 81 mg oral tablet, Oral, Daily atorvastatin, Oral, Daily [place] cat 40mg PRN clopidogrel, Oral finasteride 5 mg Tab, 5 mg= 1 tab(s), Oral, Daily, 6 refills FLUoxetine 20 mg Cap Glydo 2% topical gel with applicator 11 mL, 0.2 gm= 10 mL, Topical, As Directed, 6 refills Immodium A-D 2 mg Cap losartan 100 mg Tab, Oral, Daily meclizine 25 mg Tab tolterodine 4 mg Cap-ER, 4 mg= 1 cap(s), Oral, Daily, 6 refills Allergies No Known Allergies Social History Alcohol - Low Risk, 12/29/2019 Tobacco Never (less than 100 in lifetime) Tobacco Use:. Never Smokeless Tobacco Use:. Yes, 11/03/2022 Family History Arthritis: Father. Hypertension: Father. Immunizations Vaccine Date Status influenza virus vaccine, inactivated 10/09/2022 Recorded influenza virus vaccine, inactivated 10/09/2021 Recorded SARS-CoV-2 (COVID-19) Ad26 vaccine 03/ (more content not included)... Normal [facility] Comment on above: Result Comment: Elec tronically Signed By: Trung FERGUSON MD\.br\Date and Time Signed: 01/01/23 13:24 EDT\.br\Electronically Co-Signed By: Jessica Landrum\.br\Date and Time Co-Signed: 01/01/23 13:19 EDT Office Visit (Cardiology)on 10-09-2022 Follow-up visit Diagnoses/Problems Assessed Hypertension (401.9) (I10) Anticoagulated (V58.61) (Z79.01) Overweight with body mass index (BMI) of 26 to 26.9 in adult (278.02,V85.22) (E66.3,Z68.26) Orders Overweight with body mass index (BMI) of 26 to 26.9 in adult Healthy Weight Tips; Status:Complete; Done: 09Oct2022 Patient Instructions Please bring all medicines, vitamins, and herbal supplements with you when you come to the office. Prescriptions will not be filled unless you are compliant with your follow up appointments or have a follow up appointment scheduled as per instruction of your physician. Refills should be requested at the time of your visit. PLAN: Through informed decision making process incorporating patients unique circumstances, the following treatment plan will be initiated: 1. Prescription drug management of cardiovascular medication for efficacy, adherence to treatment, side effect assessment and polypharmacy. Current treatment clinically warranted and to continue without modifications. 2. Please check on Eliquis coverage and let me know 3. Complete patient assistance forms if needed 4. Return for follow-up; in the interim, contact the office if new symptoms arise. Dr. Hernández as scheduled Chief Complaint One week f/u medication reconciliation. NEIL WILCOX is being seen for a 1 week follow-up of a routine medication evaluation. Patient presents to the office ambulatory steady gait, is accompanied by . Evaluated by Dr. Hernández last week and presents today to discuss anticoagulation and verify medication bottles. brought all medication bottles, list is reflective of everything that they have the patient openly admits to sometimes I miss things . At visit with Dr. Hernández they verbalized concerns regarding the cost of Entresto. They were to evaluate Xarelto coverage or consider transition to Coumadin. Patient presents today where he has a bottle of Eliquis filled October 04, 2022. He reports that the pharmacy reduce the cost . I am not sure if they had a 30-day free supply or if he had new insurance coverage and was not in the donut hole. The patient and remain unclear. They did not complete patient assistance forms, I provided them with new ones today. In layman terms, discussed increased stroke risk and need for anticoagulation. CHADS VASc 5 with 5-8% annual stroke risk. Although extremely pleasant, patient appears to have either neurocognitive decline or very low health literacy. The purpose of today's visit was to secure affordable anticoagulation. The patient reports he will contact the pharmacy to see the cost of Eliquis moving forward. In the meantime, I will have nursing staff contact pharmacy to verify. If anticoagulation continues to be challenging may need to consider left atrial appendage occlusive device. Otherwise, there have been no significant changes to her overall cardiovascular status since last evaluation. Eliquis 5 mg twice daily age 77, creatinine 1.08. History of Present Illness The patient states he has been generally doing well since the last visit. Comorbid Illnesses: hypertension. Symptoms: denies chest pain at rest, denies exertional chest pain, denies dyspnea, denies fatigue, denies exercise intolerance, denies palpitations, stable dizziness and stable orthostatic dizziness. Associated symptoms: no syncope. His symptoms do not limit his activities. Disease Monitoring: The patient has had a stable weight. Medications: the patient is adherent with his medication regimen. He denies medication side effects. Surgical History Problems History of Complete colonoscopy Managed By: Don BETANCOURT, Bg Frost (Gastroenterology) History of Loop recorder insertion History of Rotator cuff repair History of Shoulder surgery 2 seperate surgeries History of Tonsillectomy with adenoidectomy Current Meds Medication NameInstruction amLODIPine Besylate 10 MG Oral TabletTAKE 1 TABLET DAILY. Atorvastatin Calcium 40 MG Oral TabletTAKE 1 TABLET AT BEDTIME. Lfklimbkxz-TODJ-Rtqndu ne 50-325-40 MG Oral TabletTAKE 1 TABLET 3 TIMES DAILY NEEDED FOR PAIN. Cyclobenzaprine HCl - 10 MG Oral TabletTAKE 1 TABLET 3 TIMES DAILY NEEDED. Doxazosin Mesylate 4 MG Oral TabletTAKE 1 TABLET DAILY. Doxycycline Hyclate 100 MG Oral CapsuleTAKE 1 CAPSULE DAILY UNTIL FINISHED. Eliquis 5 MG Oral TabletTake 1 tablet twice daily Finasteride 5 MG Oral TabletTAKE 1 TABLET DAILY DIRECTED. Levothyroxine Sodium 125 MCG Oral CapsuleTAKE 1 CAPSULE BY MOUTH EVERY MORNING BEFORE BREAKFAST ON EMPTY STOMACH Loperamide HCl - 2 MG Oral TabletTAKE NEEDED. Losartan Potassium 100 MG Oral TabletTAKE 1 TABLET DAILY. Meclizine HCl - 25 MG Oral TabletTAKE 1 TABLET 3 TIMES DAILY NEEDED. Meloxicam 15 MG Oral TabletTAKE 1 TABLET DAILY. Spironolactone 25 MG Oral TabletTAKE 1 TABLET DAILY. Allergies Medication No Known Drug Allergies Recorded By: Arti Valenzuela; 06/06/2021 12:58:27 PM Social (more content not included)... Normal [facility] Tobacco Screening.on 023 Fall risk assessment a) No falls within the last year [facility] [employer] DO Work Phone: Tobacco use status [facility]PH[facility] b) No M [facility] [employer] DO Work Phone: Office Visit (Cardiology)on 10-02-2022 Follow-up visit Diagnoses/Problems Assessed High risk medication use (V58.69) (Z79.899) Hypertension (401.9) (I10) Mixed hyperlipidemia (272.2) (E78.2) Implantable loop recorder present (V45.09) (Z95.818) BPH (benign prostatic hyperplasia) (600.00) (N40.0) Status post placement of implantable loop recorder (V45.09) (Z95.818) TIA (transient ischemic attack) (435.9) (G45.9) Overweight with body mass index (BMI) of 26 to 26.9 in adult (278.02,V85.22) (E66.3,Z68.26) Atrial fibrillation, currently in sinus rhythm (427.31) (Z86.79) Former smoker (V15.82) (Z87.891) Quit 1959' Orders SocHx: Former smoker Tobacco Use Screening; Status:Complete; Done: [id number] Patient Instructions Please bring all medicines, vitamins, and herbal supplements with you when you come to the office. Prescriptions will not be filled unless you are compliant with your follow up appointments or have a follow up appointment scheduled as per instruction of your physician. Refills should be requested at the time of your visit. Loulou Arreguin [employer] in 1 weeks Follow up in 6 months Chief Complaint NEIL WILCOX is being seen for a 1 month follow-up of. History of Present Illness Patient presents for blood pressure follow-up. Accompanied by to the office. Did not bring in medications. The list suggest that he is taking doxazosin 4 mg daily. Home blood pressure readings are actually slightly higher than what we get in the office today. Patient says his prostate issues have improved on this medication. Towards the end of the interview reports that Eliquis is too expensive and patient has not been taking it. Once again reiterated the importance of bringing in the medication bottles at every visit. The importance of Eliquis was rediscussed. This patient does not have symptoms of atrial fibrillation, it is being picked up on his loop recorder. We talked about the options to include warfarin, or try for an alternate agent such as Xarelto is more cost effective, prior authorization, stop anticoagulation and just use aspirin. He understands that aspirin by itself is not protective to the same extent that anticoagulation needs. They will think about this, and will follow up with Loulou Arreguin in the near future, to reassess adequacy of blood pressure management, and decide about the anticoagulation of choice. I will plan on seeing him back in about 6 months. Assessment: 1. Hypertension-above target 3. Lexiscan Myoview September 2021-normal patient with hypertension at that time as well 3. 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 4.Hyperlipidemia-on statin therapy 5.BPH-on medications 6. Left frontoparietal stroke 7. Echocardiogram November 2019-LVEF 55% normal LV wall thickness normal left atrial size negative bubble study mild aortic regurgitation mild mitral regurgitation trivial tricuspid regurgitation unable to estimate RV systolic pressure. Left atrial volume index was reported to be 41 mL/m which actually would suggest left atrial enlargement. Normal IVC diameter and inspiratory collapse 8. Paroxysmal atrial fibrillation with rapid ventricular rate based on loop recorder interrogation report from July 2022. Patient does not have much in the way of symptoms. 9. Not taking Eliquis at this time because cost is prohibitive. Recommendations: Options are to switch to warfarin, he is Xarelto is more cost effective, opted out of anticoagulation and stay on aspirin-the latter is not a great option in my opinion. Rationale was discussed patient and to discuss further, check with insurance, and follow-up with Loulou Arreguin in the near future to establish anticoagulation practice. Surgical History Problems History of Complete colonoscopy Managed By: Don BETANCUORT, Bg Frost (Gastroenterology) History of Loop recorder insertion History of Rotator cuff repair History of Shoulder surgery 2 seperate surgeries History of Tonsillectomy with adenoidectomy Current Meds Medication NameInstruction amLODIPine Besylate 10 MG Oral TabletTAKE 1 TABLET DAILY. Atorvastatin Calcium 40 MG Oral TabletTAKE 1 TABLET AT BEDTIME. Qonlodjyet-NAZJ-Mhycpx ne 50-325-40 MG Oral TabletTAKE 1 TABLET 3 TIMES DAILY NEEDED FOR PAIN. Doxazosin Mesylate 4 MG Oral TabletTAKE 1 TABLET DAILY. Finasteride 5 MG Oral TabletTAKE 1 TABLET DAILY DIRECTED. Levothyroxine Sodium 125 MCG Oral CapsuleTAKE 1 CAPSULE BY MOUTH EVERY MORNING BEFORE BREAKFAST ON EMPTY STOMACH Loperamide HCl - 2 MG Oral TabletTAKE NEEDED. Losartan Potassium 100 MG Oral TabletTAKE 1 TABLET DAILY. Meclizine HCl - 25 MG Oral TabletTAKE 1 TABLET 3 TIMES DAILY NEEDED. Meloxicam 15 MG Oral TabletTAKE 1 TABLET DAILY. Spironolactone 25 MG Oral TabletTAKE 1 TABLET DAILY. Patient did not bring medication list or bottles. Updated verbally with patient Allergies Medication No Known Drug Allergies Recorded By: Arti Valenzuela; 06/06/2021 12:58:27 PM Social History Problems Caffeine us (more content not included)... Normal [facility] Tobacco Screening.on 023 Adult depression screening assessment No [facility] [employer] DO Work Phone: Fall risk assessment a) No falls within the last year [facility] [employer] DO Work Phone: Tobacco use status CPHS b) No M [facility] [employer] DO Work Phone: Office Visit (Cardiology)on 09-11-2022 Follow-up visit Diagnoses/Problems Assessed Hypertension (401.9) (I10) Overweight with body mass index (BMI) of 25 to 25.9 in adult (278.02,V85.21) (E66.3,Z68.25) Former smoker (V15.82) (Z87.891) Quit Orders Hypertension Start: Doxazosin Mesylate 4 MG Oral Tablet; TAKE 1 TABLET DAILY Overweight with body mass index (BMI) of 25 to 25.9 in adult Healthy Weight Tips; Status:Complete; Done: [id number] Some eating tips that can help you lose weight.; Status:Complete; Done: [id number] SocHx: Former smoker Tobacco Use Screening; Status:Complete; Done: 40Xse0825 Chief Complaint NEIL WILCOX is being seen for hypertension. Current Meds Medication NameInstruction amLODIPine Besylate 10 MG Oral TabletTAKE 1 TABLET DAILY. Atorvastatin Calcium 40 MG Oral TabletTAKE 1 TABLET AT BEDTIME. Acsfzxnsnq-NSHX-Hnorsd ne 50-325-40 MG Oral TabletTAKE 1 TABLET 3 TIMES DAILY NEEDED FOR PAIN. Doxazosin Mesylate 2 MG Oral TabletTAKE 1 TABLET DAILY. Eliquis 5 MG Oral TabletTake 1 tablet twice daily Finasteride 5 MG Oral TabletTAKE 1 TABLET DAILY DIRECTED. FLUoxetine HCl - 20 MG Oral CapsuleTAKE 1 CAPSULE Daily Levothyroxine Sodium 125 MCG Oral CapsuleTAKE 1 CAPSULE BY MOUTH EVERY MORNING BEFORE BREAKFAST ON EMPTY STOMACH Loperamide HCl - 2 MG Oral TabletTAKE NEEDED. Losartan Potassium 100 MG Oral TabletTAKE 1 TABLET DAILY. Meclizine HCl - 25 MG Oral TabletTAKE 1 TABLET 3 TIMES DAILY NEEDED. Meloxicam 15 MG Oral TabletTAKE 1 TABLET DAILY. Ondansetron HCl - 4 MG Oral TabletTAKE 1 TABLET Daily prn Spironolactone 25 MG Oral TabletTAKE 1 TABLET DAILY. Patient did not bring medication list or bottles. Updated verbally with patient Allergies Medication No Known Drug Allergies Recorded By: Arti Valenzuela; 06/06/2021 12:58:27 PM Social History Problems Former smoker (V15.82) (Z87.891) Quit Review of Systems Constitutional: Denies: fever, chills, malaise Eye: Denies: discharge from eyes, eye pain, changes in vision HEENT: Denies: headache, nasal discharge, sore throat, ear pain Gastrointestinal: Denies: nausea, vomiting, diarrhea, abdominal pain Integument: Denies: rash, itching, new skin lesions Neurologic: Denies: muscular weakness, tingling, numbness, tremors, loss of balance Endocrine: Denies: polyuria, polydipsia, cold intolerance, heat intolerance Psychiatric: Denies: anxiety, depression, suicidal ideation Heme -lymph: Denies: easy bruising, petechia, lymph node enlargement, or tenderness Remaining ROS is negative, noncontributory, or as previously mentioned Vitals Vital Signs Recorded: [id number] 01:07PMRecorded: 84Pcz1920 01:00PM Systolic Ihddp744, LUE Diastolic Lying84, LUE Systolic Zgfwkxo668, LUE Diastolic Placnqr24, LUE Systolic Vuaymbgh428, LUE Diastolic Qyraulvw71, LUE Heart Rate62, L Radial Height5 ft 9 in Hptllk005 lb BMI Gdguuffolv35.99 kg/m2 BSA Calculated1.96 Physical Exam GENERAL: Well developed, well nourished, in no acute distress. CHEST: Symmetrical and non-tender. INTEGUMENT: Skin warm and dry, without gross excoriations or lesions. HEENT: No gross abnormalities of conjunctiva, teeth, gums, oral mucosa. NECK: Supple, no JVD, no bruit. Thyroid not palpable. Carotid upstrokes normal. NEURO/PSYCH: Alert and oriented x 3; appropriate behavior and responses, grossly normal cerebellar function with normal balance and coordination. LUNGS: Clear to auscultation bilaterally; normal respiratory effort. HEART: Rate and rhythm regular with no evident murmur; no gallop appreciated. There are no rubs, clicks or heaves. PMI non displaced. Normal S1 and S2 ABDOMEN: Soft, non-tender, no palpable hepatosplenomegaly, no masses, no bruits. Abdominal aorta not noted to be enlarged . MUSCULOSKELETAL: Ambulatory with normal tandem gait. EXTREMITIES: Warm with good color, no clubbing or cyanosis. There is no edema noted. Signatures Electronically signed by : Za Hernández MD; Sep 15 2022 7:52PM EST (Author) Normal [facility] Covid-19 PCR (CVDTBH)on 12-0 6-2022 SARS-CoV-2 (COVID-19) RNA KEIKO+probe Ql (Unsp spec) Not detected Normal NOT DETECTED [facility] Comment on above: Result Comment: This test is not yet approved or cleared by the [place] FDA. When there are no FDA-approved or cleared tests available, and other criteria are met, FDA can make tests available under an emergency access mechanism called an Emergency Use Authorization (EUA). The EUA for this test is supported by the [place] of Health and Human Service's (HHS's) declaration that circumstances exist to justify the emergency use of in vitro diagnostics for the detection and/or diagnosis of the virus that causes COVID-19. This EUA will remain in effect (meaning this test can be used) for the duration of the COVID-19 declaration justifying emergency of IVDs, unless it is terminated or revoked by FDA (after which the test may no longer be used). When diagnostic testing is negative, the possibility of a false negative should be considered in the context of a patient's recent exposures and the presence of clinical signs and symptoms consistent with SARS-CoV-2. Performed By: #### T SH, LIPID, CMP #### [facility] [address] [address] [address] Oscar Paulino Office Visit (Cardiology)on 08-28-2022 Follow-up visit Diagnoses/Problems Assessed Paroxysmal atrial fibrillation with RVR (427.31) (I48.0) Mixed hyperlipidemia (272.2) (E78.2) Implantable loop recorder present (V45.09) (Z95.818) TIA (transient ischemic attack) (435.9) (G45.9) Status post placement of implantable loop recorder (V45.09) (Z95.818) BPH (benign prostatic hyperplasia) (600.00) (N40.0) Hypertension (401.9) (I10) Overweight with body mass index (BMI) of 25 to 25.9 in adult (278.02,V85.21) (E66.3,Z68.25) Medication course changed (V58.69) (Z79.899) Former smoker (V15.82) (Z87.891) Quit 1959' High risk medication use (V58.69) (Z79.899) Orders Hypertension Start: Doxazosin Mesylate 2 MG Oral Tablet; TAKE 1 TABLET DAILY Basic Metabolic Panel; Status:Active; Requested for:[id number]; Overweight with body mass index (BMI) of 25 to 25.9 in adult Start: Spironolactone 25 MG Oral Tablet; TAKE 1 TABLET DAILY Healthy Weight Tips; Status:Complete; Done: [id number] Some eating tips that can help you lose weight.; Status:Complete; Done: [id number] Paroxysmal atrial fibrillation with RVR Start: Eliquis 5 MG Oral Tablet; Take 1 tablet twice daily Patient Instructions Please bring all medicines, vitamins, and herbal supplements with you when you come to the office. Prescriptions will not be filled unless you are compliant with your follow up appointments or have a follow up appointment scheduled as per instruction of your physician. Refills should be requested at the time of your visit. Patient provided Falls Prevention education sheet. device checks from loop recorder Blood pressure/OV follow up in 2 weeks with ortho start the eliquis 5mg BID after surgical procedure of bladder. Chief Complaint NEIL WILCOX is being seen for Discuss progress. History of Present Illness This is a follow-up from May 2022 visit. Patient with an acute stroke with no definite etiology, preserved LV systolic function, negative Lexiscan Myoview, loop recorder was implanted in 2019. Has BPH. Has a thyroid deficiency, is on replacement. Reviewed laboratory data from 08/22/2022, sodium 138 potassium 3.7 GFR greater than 60 creatinine 1.0 hemoglobin 12 hematocrit 34 MCV 102 platelets 191 INR 1.05. Blood pressure remains elevated in both upper extremities. Loop recorder interrogation does suggest tachycardia narrow complex with slight irregularity, very suspicious for atrial fibrillation. Assessment: 1. Hypertension-above target 3. Lexiscan Myoview September 2021-normal patient with hypertension at that time as well 3. 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 4.Hyperlipidemia-on statin therapy 5.BPH-on medications 6. Left frontoparietal stroke 7. Echocardiogram November 2019-LVEF 55% normal LV wall thickness normal left atrial size negative bubble study mild aortic regurgitation mild mitral regurgitation trivial tricuspid regurgitation unable to estimate RV systolic pressure. Left atrial volume index was reported to be 41 mL/m which actually would suggest left atrial enlargement. Normal IVC diameter and inspiratory collapse 8. Paroxysmal atrial fibrillation with rapid ventricular rate based on loop recorder interrogation report from July 2022. Patient does not have much in the way of symptoms. Recommendations: 1. Patient was informed that the patient has an irregularly irregular heart rate, and it is called atrial fibrillation. The pathophysiology of atrial fibrillation, some of the precipitating factors, and the risk of stroke with atrial fibrillation was discussed. Patient was informed that there are different modalities for treating atrial fibrillation, and the plan of treatment would be individualized to the patient's needs and response. The importance of blood thinners to prevent stroke in atrial fibrillation was discussed, the pros and cons of blood thinners were also discussed to include bleeding with over treatment and lack of stroke protection in the setting of under treatment. We talked about the available medications for stroke prevention, to include warfarin and the newer anticoagulation agents. The newer anticoagulation agents that were discussed included Eliquis, and Xarelto. Benefits of warfarin that were discussed included lower-cost and ability to reverse promptly. The downside of warfarin is in need for frequent blood draws, the interaction of food with INR level, and variability of INR level based on other medications such as antibiotic usage. The downside of warfarin also include erratic anticoagulation and the need for frequent blood monitoring. The downside of newer anticoagulation agents include higher cost and at times inability to reverse effects in an emergency . Patient expressed understanding. Patient was also told that if there is any evidence of bleeding such as black stool or blood in the stool or traumatic falls, prompt medical attention should be sought. If patient were to have surgical procedures, they would be interruption in these medications, (more content not included)... Normal [facility] Screening.on 022 Fall risk assessment b) One or more fall s in the last year [facility] [employer] [address] DO Work Phone: Tobacco use status CP b) No M [facility] [place] [address] [place] Work Phone: LIPID PROFILEon 08-25-2022 CHOL-HDL RATIO NORM SEE BELOW Normal [facility] Comment on above: Result Comment: 3.3 - 4.4 LOW RISK 4.4 - 7.1 AVERAGE RISK 7.1 - 11.0 MODERATE RISK >11.0 HIGH RISK Performed By: #### T SH, LIPID, CMP #### [facility] [address] [place] [address] Dr. Oscar Paulino Cholesterol [Mass/Vol] 121 mg/dL Normal <=200 Th [facility] Comment on above: Performed By: #### T SH, LIPID, CMP #### [facility] [address] [address] [address] Oscar Paulino Cholesterol in HDL [Mass/Vol] 42 mg/dL Normal 40-60 [facility] Comment on above: Performed By: #### T SH, LIPID, CMP #### [facility] [address] [address] [address] Oscar Paulino Cholesterol in LDL [Mass/Vol] 66.2 mg/dL Normal [facility] Comment on above: Performed By: #### T SH, LIPID, CMP #### [facility] [address] [address] [address] Oscar Paulino Cholesterol.total/Suzette sterol in HDL [Mass ratio] 2.9 {ratio} Normal [facility] Comment on above: Performed By: #### T MANJIT, LIPID, CMP #### [facility] [address] [address] [address] Oscar Paulino HDL NORMAL > or = 60 mg/dl - LO W CARDIOVASCULAR RISK <40 mg/dl - HIGH CARDIOVASCULAR RISK Normal [facility] Comment on above: Performed By: #### T SH, LIPID, CMP #### [facility] [address] [address] [address] Oscar Paulino LDL CALC NORMAL SEE BELOW Normal [facility] Comment on above: Result Comment: <100 mg/dl OPTIMAL 100 - 129 mg/dl NEAR OR ABOVE OPTIMAL 130 - 159 mg/dl BORDERLINE HIGH 160 - 189 mg/dl HIGH >190 mg/dl VERY HIGH Performed By: #### T SH, LIPID, CMP #### [facility] [address] [address] [address] Oscar Paulino Triglyceride [Mass/Vol] 64 mg/dL Normal <=150 T [facility] Comment on above: Performed By: #### T SH, LIPID, CMP #### [facility] [address] [address] [address] Oscar Paulino VLDL CALC 12.8 mg/dL Normal [facility] Comment on above: Performed By: #### T SH, LIPID, CMP #### [facility] [address] [address] [address] Oscar Paulino PROF 14(COMP METB)on 022 Albumin [Mass/Vol] 3.6 g/dL Normal 3.4-5.0 [facility] Comment on above: Performed By: #### T SH, LIPID, CMP #### [facility] [address] [address] [address] Oscar Paulino Albumin/Globulin [Mass ratio] 0.8 {ratio} Normal [facility] Comment on above: Performed By: #### T MANJIT, LIPID, CMP #### [facility] [address] [address] [address] Oscar Paulino ALP [Catalytic activity/Vol] 92 U/L Normal 46-116 [facility] Comment on above: Performed By: #### T MANJIT, LIPID, CMP #### [facility] [address] [address] [address] Oscar Paulino ALT [Catalytic activity/Vol] 17 U/L Normal 16-63 [facility] Comment on above: Performed By: #### T MANJIT, LIPID, CMP #### [facility] [address] [place] [address] Dr. Oscar Paulino Anion gap [Moles/Vol] 9.7 mmol/L Normal [facility] Comment on above: Performed By: #### T MANJIT, LIPID, CMP #### [facility] [address] [address] [address] Oscar Paulino AST [Catalytic activity/Vol] 10 U/L Critically low 15-37 [facility] Comment on above: Performed By: #### T SH, LIPID, CMP #### [facility] [address] [place] [address] Dr. Oscar Paulino Bilirubin [Mass/Vol] 0.3 mg/dL Normal 0.2-1.0 [facility] Comment on above: Performed By: #### T SH, LIPID, CMP #### [facility] [address] [place] [address] Dr. Oscar Paulino Calcium [Mass/Vol] 9.4 mg/dL Normal 8.5-10.1 [facility] Comment on above: Performed By: #### T SH, LIPID, CMP #### [facility] [address] [address] [address] Oscar Paulino Chloride [Moles/Vol] 102 mmol/L Normal 98-107 [facility] Comment on above: Performed By: #### T SH, LIPID, CMP #### [facility] [address] [address] [address] Oscar Paulino CO2 [Moles/Vol] 29.1 mmol/L Normal 21.0-32.0 [facility] Comment on above: Performed By: #### T MANJIT, LIPID, CMP #### [facility] [address] [place] [address] Dr. Oscar Paulino Creatinine [Mass/Vol] 1.08 mg/dL Normal 0.70-1.30 [facility] Comment on above: Performed By: #### T MANJIT, LIPID, CMP #### [facility] [address] [place] [address] Dr. Oscar Paulino EGFR-AF BARBADIAN >60 Normal >=60 [facility] Comment on above: Performed By: #### T MANJIT, LIPID, CMP #### [facility] [address] [place] [address] Dr. Oscar Paulino EGFR-NON AF BARBADIAN >60 Normal >=60 [facility] Comment on above: Performed By: #### T MANJIT, LIPID, CMP #### [facility] [address] [place] [address] Dr. Oscar Paulino Globulin (S) [Mass/Vol] 4.3 g/dL Normal [facility] Comment on above: Performed By: #### T SH, LIPID, CMP #### [facility] [address] [place] [address] Dr. Oscar Paulino Glucose [Mass/Vol] 104 mg/dL Normal 74-106 [facility] Comment on above: Performed By: #### T SH, LIPID, CMP #### [facility] [address] [address] [address] Oscar Paulino Potassium [Moles/Vol] 3.8 mmol/L Normal 3.5-5.1 [facility] Comment on above: Performed By: #### T MANJIT, LIPID, CMP #### [facility] [address] [place] [address] Dr. Oscar Paulino Protein [Mass/Vol] 7.9 g/dL Normal 6.4-8.2 [facility] Comment on above: Performed By: #### T MANJIT, LIPID, CMP #### [facility] [address] [place] [address] Dr. Oscar Paulino Sodium [Moles/Vol] 137 mmol/L Normal 136-145 [facility] Comment on above: Performed By: #### T MANJIT, LIPID, CMP #### [facility] [address] [place] [address] Dr. Oscar Paulino Urea nitrogen [Mass/Vol] 18.0 mg/dL Normal 7.0-18.0 [facility] Comment on above: Performed By: #### T MANJIT, LIPID, CMP #### [facility] [address] [place] [address] Dr. Oscar Paulino Urea nitrogen/Creatinine [Mass ratio] 16.7 mg/mg Normal [facility] Comment on above: Performed By: #### T MANJIT, LIPID, CMP #### [facility] [address] [place] [address] Dr. Oscar Paulino TSHon 08-25-2022 TSH 2.967 uIU/mL Normal 0.358-3.740 [facility] Comment on above: Performed By: #### T MANJIT, LIPID, CMP #### [facility] [address] [place] [address] Dr. Oscar Paulino CBC AUTO DIFFon 08-22-2022 BASO # 0.0 103/ul Normal 0.0-0.1 [facility] Comment on above: Performed By: #### T MANJIT, LIPID, CMP #### [facility] [address] [place] [address] Dr. Oscar Paulino Basophils/100 WBC (Bld) 0.3 % Normal 0.2-2.0 [facility] Comment on above: Performed By: #### T MANJIT LIPID, CMP #### [facility] [address] [place] [address] Dr. Oscar Paulino EO # 0.3 103/ul Normal 0.0-0.7 [facility] Comment on above: Performed By: #### T MANJIT LIPID, CMP #### [facility] [address] [place] [address] Dr. Oscar Paulino Eosinophils/100 WBC (Bld) 7.3 % Critically high 0.9-7.0 [facility] Comment on above: Performed By: #### T MANJIT LIPID, CMP #### [facility] [address] [place] [address] Dr. Oscar Paulino Erythrocyte distribution width (RBC) [Ratio] 11.9 % Normal 11.0-15.0 [facility] Comment on above: Performed By: #### T MANJIT LIPID, CMP #### [facility] [address] [place] [address] Dr. Oscar Paulino Hematocrit (Bld) [Volume fraction] 33.8 % Critically low 42.0-54.0 [facility] Comment on above: Performed By: #### T MANJIT LIPID, CMP #### [facility] [address] [place] [address] Dr. Oscar Paulino Hemoglobin (Bld) [Mass/Vol] 12.0 g/dL Critically low 14.0-18.0 [facility] Comment on above: Performed By: #### T MANJIT LIPID, CMP #### [facility] [address] [place] [address] Dr. Oscar Paulino IG # 0.01 10e3/ul Normal 0.00-0.03 [facility] Comment on above: Performed By: #### T MANJIT LIPID, CMP #### [facility] [address] [place] [address] Dr. Oscar Paulino IG % 0.3 % Normal 0.0-0.5 [facility] Comment on above: Performed By: #### T MANJIT LIPID, CMP #### [facility] [address] [address] [address] Oscar Paulino LYMPH # 1.4 103/ul Normal 1.2-3.8 [facility] Comment on above: Performed By: #### T SH, LIPID, CMP #### [facility] [address] [address] [address] Oscar Paulino Lymphocytes/100 WBC (Bld) 39.2 % Normal 20.5-60.0 [facility] Comment on above: Performed By: #### T SH, LIPID, CMP #### [facility] [address] [address] [address] Oscar Paulino MANUAL DIFF REQ NO Normal [facility] Comment on above: Performed By: #### T SH, LIPID, CMP #### [facility] [address] [place] [address] Dr. Oscar Paulino MCH (RBC) [Entitic mass] 36.4 pg Critically high 25.9-34.0 [facility] Comment on above: Performed By: #### T SH, LIPID, CMP #### [facility] [address] [place] [address] Dr. Oscar Paulino MCHC (RBC) [Mass/Vol] 35.5 g/dL Critically high 29.9-35.2 [facility] Comment on above: Performed By: #### T SH, LIPID, CMP #### [facility] [address] [place] [address] Dr. Oscar Paulino MCV (RBC) [Entitic vol] 102.4 fL Critically high 80.0-94 .0 [facility] Comment on above: Performed By: #### T SH, LIPID, CMP #### [facility] [address] [address] [address] Oscar Paulino MONO # 0.2 103/ul Critically low 0.3-0.8 [facility] Comment on above: Performed By: #### T SH, LIPID, CMP #### [facility] [address] [place] [address] Dr. Oscar Paulino Monocytes/100 WBC (Bld) 6.8 % Normal 1.7-12.0 [facility] Comment on above: Performed By: #### T SH, LIPID, CMP #### [facility] [address] [address] [address] Oscar Paulino NEUT # 1.6 103/ul Normal 1.4-6.5 [facility] Comment on above: Performed By: #### T SH, LIPID, CMP #### [facility] [address] [place] [address] Dr. Oscar Paulino Neutrophils/100 WBC (Bld) 46.1 % Normal 43.0-75.0 [facility] Comment on above: Performed By: #### T SH, LIPID, CMP #### [facility] [address] [place] [address] Dr. Oscar Paulino Platelet mean volume (Bld) [Entitic vol] 8.5 fL Critically low 9.5-13.5 [facility] Comment on above: Performed By: #### T SH, LIPID, CMP #### [facility] [address] [place] [address] Dr. Oscar Paulino PLT 191 103/ul Normal 150-450 [facility] Comment on above: Performed By: #### T SH, LIPID, CMP #### [facility] [address] [place] [address] Dr. Oscar Paulino RBC 3.30 106/ul Critically low 4.70-6.10 [facility] Comment on above: Performed By: #### T SH, LIPID, CMP #### [facility] [address] [place] [address] Dr. Oscar Paulino WBC 3.6 103/ul Critically low 4.0-11.0 [facility] Comment on above: Performed By: #### T SH, LIPID, CMP #### [facility] [address] [place] [address] Dr. Oscar Paulino PROF CHEM 8 (BAS METB)on Anion gap [Moles/Vol] 11.0 mmol/L Normal [facility] Comment on above: Performed By: #### B MP #### [facility] [address] [place] [address] Dr. Oscar Paulino Calcium [Mass/Vol] 9.4 mg/dL Normal 8.5-10.1 [facility] Comment on above: Performed By: #### B MP #### [facility] [address] [place] [address] Dr. Oscar Paulino Chloride [Moles/Vol] 103 mmol/L Normal 98-107 [facility] Comment on above: Performed By: #### B MP #### [facility] [address] [address] [address] Oscar Paulino CO2 [Moles/Vol] 27.7 mmol/L Normal 21.0-32.0 [facility] Comment on above: Performed By: #### B MP #### [facility] [address] [place] [address] Dr. Oscar Paulino Creatinine [Mass/Vol] 1.07 mg/dL Normal 0.70-1.30 [facility] Comment on above: Performed By: #### B MP #### [facility] [address] [place] [address] Dr. Oscar Paulino EGFR-AF BARBADIAN >60 Normal >=60 [facility] Comment on above: Performed By: #### B MP #### [facility] [address] [address] [address] Oscar Paulino EGFR-NON AF BAR[place]IAN >60 Normal >=60 [facility] Comment on above: Performed By: #### B MP #### [facility] [address] [place] [address] Dr. Oscar Paulino Glucose [Mass/Vol] 99 mg/dL Normal 74-106 [facility] Comment on above: Performed By: #### B MP #### [facility] [address] [address] [address] Oscar Paulino Potassium [Moles/Vol] 3.7 mmol/L Normal 3.5-5.1 [facility] Comment on above: Performed By: #### B MP #### [facility] [address] [place] [address] Dr. Oscar Paulino Sodium [Moles/Vol] 138 mmol/L Normal 136-145 [facility] Comment on above: Performed By: #### B MP #### [facility] [address] [place] [address] Dr. Oscar Paulino Urea nitrogen [Mass/Vol] 20.0 mg/dL Critically high 7.0-18.0 [facility] Comment on above: Performed By: #### B MP #### [facility] [address] [place] [address] Dr. Oscar Paulino Urea nitrogen/Creatinine [Mass ratio] 18.7 mg/mg Normal [facility] Comment on above: Performed By: #### B MP #### [facility] [address] [place] [address] Dr. Oscar Paulino PROTIMEon 08-22-2022 INR Coag (PPP) [Relative time] 1.06 {INR} Normal [facility] Comment on above: Performed By: #### P T, PTT #### [facility] [address] [place] [address] Dr. Oscar Paulino INR GUIDELINES SEE BELOW Normal [facility] Comment on above: Result Comment: ELYSIA RED INR: 2.0 - 3.0 CONDITIONS NOT LISTED BELOW 2.5 - 3.5 FOR PROSTHETIC HEART VALVE REPLACEMENT 2.5 - 3.5 RECURRENT THROMBOSIS Performed By: #### P T, PTT #### [facility] [address] [place] [address] Dr. Oscar Paulino PT Coag (PPP) [Time] 11.4 s Normal 9.0-11.6 [facility] Comment on above: Performed By: #### P T, PTT #### [facility] [address] [place] [address] Dr. Oscar Paulino PTTon 08-22-2022 aPTT Coag (Bld) [Time] 26.6 s Normal 22.3-36.2 [facility] Comment on above: Performed By: #### P T, PTT #### [facility] [address] [place] [address] Dr. Oscar Paulino [facility]25 SARS-CoV-2 (COVID-19) RNA KEIKO+probe Ql (Unsp spec) Not detected Normal NOT DETECTED [facility] Comment on above: Result Comment: This test is not yet approved or cleared by the [place] FDA. When there are no FDA-approved or cleared tests available, and other criteria are met, FDA can make tests available under an emergency access mechanism called an Emergency Use Authorization (EUA). The EUA for this test is supported by the [place] of Health and Human Service's (HHS's) declaration that circumstances exist to justify the emergency use of in vitro diagnostics for the detection and/or diagnosis of the virus that causes COVID-19. This EUA will remain in effect (meaning this test can be used) for the duration of the COVID-19 declaration justifying emergency of IVDs, unless it is terminated or revoked by FDA (after which the test may no longer be used). When diagnostic testing is negative, the possibility of a false negative should be considered in the context of a patient's recent exposures and the presence of clinical signs and symptoms consistent with SARS-CoV-2. Performed By: #### C VDTB #### [facility] [address] [place] [address] Dr. Oscar Paulino Covid-19 PCR ([facility])on SARS-CoV-2 (COVID-19) RNA KEIKO+probe Ql (Unsp spec) Not detected Normal NOT DETECTED [facility] Comment on above: Result Comment: This test is not yet approved or cleared by the [place] FDA. When there are no FDA-approved or cleared tests available, and other criteria are met, FDA can make tests available under an emergency access mechanism called an Emergency Use Authorization (EUA). The EUA for this test is supported by the [place] of Health and Human Service's (HHS's) declaration that circumstances exist to justify the emergency use of in vitro diagnostics for the detection and/or diagnosis of the virus that causes COVID-19. This EUA will remain in effect (meaning this test can be used) for the duration of the COVID-19 declaration justifying emergency of IVDs, unless it is terminated or revoked by FDA (after which the test may no longer be used). When diagnostic testing is negative, the possibility of a false negative should be considered in the context of a patient's recent exposures and the presence of clinical signs and symptoms consistent with SARS-CoV-2. Performed By: #### C VDTB #### [facility] [address] [place] [address] Dr. Oscar Paulino CBC AUTO DIFFon 06-28-2022 BASO # 0.0 103/ul Normal 0.0-0.1 [facility] Comment on above: Performed By: #### T SH, LIPID, CMP #### [facility] [address] [place] [address] Dr. Oscar Paulino Basophils/100 WBC (Bld) 0.4 % Normal 0.2-2.0 [facility] Comment on above: Performed By: #### T SH, LIPID, CMP #### [facility] [address] [place] [address] Dr. Oscar Paulino EO # 0.2 103/ul Normal 0.0-0.7 [facility] Comment on above: Performed By: #### T SH, LIPID, CMP #### [facility] [address] [place] [address] Dr. Oscar Paulino Eosinophils/100 WBC (Bld) 7.5 % Critically high 0.9-7.0 [facility] Comment on above: Performed By: #### T SH, LIPID, CMP #### [facility] [address] [place] [address] Dr. Oscar Paulino Erythrocyte distribution width (RBC) [Ratio] 12.3 % Normal 11.0-15.0 [facility] Comment on above: Performed By: #### T SH, LIPID, CMP #### [facility] [address] [place] [address] Dr. Oscar Paulino Hematocrit (Bld) [Volume fraction] 34.0 % Critically low 42.0-54.0 [facility] Comment on above: Performed By: #### T SH, LIPID, CMP #### [facility] [address] [place] [address] Dr. Oscar Paulino Hemoglobin (Bld) [Mass/Vol] 11.6 g/dL Critically low 14.0-18.0 [facility] Comment on above: Performed By: #### T SH, LIPID, CMP #### [facility] [address] [address] [address] Oscar Paulino IG # 0.00 10e3/ul Normal 0.00-0.03 [facility] Comment on above: Performed By: #### T SH, LIPID, CMP #### [facility] [address] [address] [address] Oscar Paulino IG % 0.0 % Normal 0.0-0.5 [facility] Comment on above: Performed By: #### T SH, LIPID, CMP #### [facility] [address] [address] [address] Oscar Paulino LYMPH # 1.0 103/ul Critically low 1.2-3.8 [facility] Comment on above: Performed By: #### T SH, LIPID, CMP #### [facility] [address] [address] [address] Oscar Paulino Lymphocytes/100 WBC (Bld) 40.1 % Normal 20.5-60.0 [facility] Comment on above: Performed By: #### T SH, LIPID, CMP #### [facility] [address] [address] [address] Oscar Paulino MANUAL DIFF REQ NO Normal [facility] Comment on above: Performed By: #### T SH, LIPID, CMP #### [facility] [address] [address] [address] Oscar Paulino MCH (RBC) [Entitic mass] 35.7 pg Critically high 25.9-34.0 [facility] Comment on above: Performed By: #### T SH, LIPID, CMP #### [facility] [address] [address] [address] Oscar Paulino MCHC (RBC) [Mass/Vol] 34.1 g/dL Normal 29.9-35.2 [facility] Comment on above: Performed By: #### T SH, LIPID, CMP #### [facility] [address] [address] [address] Oscar Paulino MCV (RBC) [Entitic vol] 104.6 fL Critically high 80.0-94 .0 [facility] Comment on above: Performed By: #### T SH, LIPID, CMP #### [facility] [address] [place] [address] Dr. Oscar Paulino MONO # 0.2 103/ul Critically low 0.3-0.8 [facility] Comment on above: Performed By: #### T SH, LIPID, CMP #### [facility] [address] [place] [address] Dr. Oscar Paulino Monocytes/100 WBC (Bld) 6.7 % Normal 1.7-12.0 [facility] Comment on above: Performed By: #### T SH, LIPID, CMP #### [facility] [address] [place] [address] Dr. Oscar Paulino NEUT # 1.1 103/ul Critically low 1.4-6.5 [facility] Comment on above: Performed By: #### T SH, LIPID, CMP #### [facility] [address] [place] [address] Dr. Oscar Paulino Neutrophils/100 WBC (Bld) 45.3 % Normal 43.0-75.0 [facility] Comment on above: Performed By: #### T SH, LIPID, CMP #### [facility] [address] [place] [address] Dr. Oscar Paulino Platelet mean volume (Bld) [Entitic vol] 8.4 fL Critically low 9.5-13.5 [facility] Comment on above: Performed By: #### T SH, LIPID, CMP #### [facility] [address] [place] [address] Dr. Oscar Paulino PLT 164 103/ul Normal 150-450 [facility] Comment on above: Performed By: #### T SH, LIPID, CMP #### [facility] [address] [place] [address] Dr. Oscar Paulino RBC 3.25 106/ul Critically low 4.70-6.10 [facility] Comment on above: Performed By: #### T SH, LIPID, CMP #### [facility] [address] [address] [address] Oscar Paulino WBC 2.5 103/ul Critically low 4.0-11.0 [facility] Comment on above: Performed By: #### T SH, LIPID, CMP #### [facility] [address] [address] [address] Oscar Paulino PROF CHEM 8 (BAS METB)on Anion gap [Moles/Vol] 9.9 mmol/L Normal [facility] Comment on above: Performed By: #### B MP #### [facility] [address] [address] [address] Oscar Paulino Calcium [Mass/Vol] 9.4 mg/dL Normal 8.5-10.1 [facility] Comment on above: Performed By: #### B MP #### [facility] [address] [place] [address] Dr. Oscar Paulino Chloride [Moles/Vol] 105 mmol/L Normal 98-107 [facility] Comment on above: Performed By: #### B MP #### [facility] [address] [address] [address] Oscar Paulino CO2 [Moles/Vol] 27.3 mmol/L Normal 21.0-32.0 [facility] Comment on above: Performed By: #### B MP #### [facility] [address] [place] [address] Dr. Oscar Paulino Creatinine [Mass/Vol] 1.05 mg/dL Normal 0.70-1.30 [facility] Comment on above: Performed By: #### B MP #### [facility] [address] [place] [address] Dr. Oscar Paulino EGFR-AF BARBADIAN >60 Normal >=60 [facility] Comment on above: Performed By: #### B MP #### [facility] [address] [place] [address] Dr. Oscar Paulino EGFR-NON AF BARBADIAN >60 Normal >=60 [facility] Comment on above: Performed By: #### B MP #### [facility] [address] [place], [place] [id number] Dr. Oscar Paulino Glucose [Mass/Vol] 105 mg/dL Normal 74-106 [facility] Comment on above: Performed By: #### B MP #### [facility] [address] [address] [address] Oscar Paulino Potassium [Moles/Vol] 4.2 mmol/L Normal 3.5-5.1 [facility] Comment on above: Performed By: #### B MP #### [facility] [address] [address] [address] Oscar Paulino Sodium [Moles/Vol] 138 mmol/L Normal 136-145 [facility] Comment on above: Performed By: #### B MP #### [facility] [address] [place] [address] Dr. Oscar Paulino Urea nitrogen [Mass/Vol] 15.0 mg/dL Normal 7.0-18.0 [facility] Comment on above: Performed By: #### B MP #### [facility] [address] [place] [address] Dr. Oscar Paulino Urea nitrogen/Creatinine [Mass ratio] 14.3 mg/mg Normal [facility] Comment on above: Performed By: #### B MP #### [facility] [address] [place] [address] Dr. Oscar Paulino PROTIMEon 06-28-2022 INR Coag (PPP) [Relative time] 1.03 {INR} Normal [facility] Comment on above: Performed By: #### T MANJIT LIPID, CMP #### [facility] [address] [place] [address] Dr. Oscar Paulino INR GUIDELINES SEE BELOW Normal [facility] Comment on above: Result Comment: ELYSIA RED INR: 2.0 - 3.0 CONDITIONS NOT LISTED BELOW 2.5 - 3.5 FOR PROSTHETIC HEART VALVE REPLACEMENT 2.5 - 3.5 RECURRENT THROMBOSIS Performed By: #### T MANJIT LIPID, CMP #### [facility] [address] [place] [address] Dr. Oscar Paulino PT Coag (PPP) [Time] 11.1 s Normal 9.0-11.6 [facility] Comment on above: Performed By: #### T SH, LIPID, CMP #### [facility] [address] [place], [place] [address] Dr. Oscar Paulino PTTon 06-28-2022 aPTT Coag (Bld) [Time] 26.2 s Normal 22.3-36.2 [facility] Comment on above: Performed By: #### T SH, LIPID, CMP #### [facility] [address] [place], [place] [address] Dr. Oscar Paulino Tobacco Screening.on 022 Adult depression screening assessment Yes -[facility] [address] DO Work Phone: Adult depression screening assessment No -[facility] [address] DO Work Phone: Fall risk assessment a) No falls within the last year [facility] [address] [place] Work Phone: Tobacco use status CP b) No M -[facility] [address] DO Work Phone: Tobacco Screening. 1-Several days -[facility] [place] [address] DO Work Phone: Tobacco Screening. 0-Not at all [facility] [address] Work Phone: Tobacco Screening. 2-More than half the days [facility] [place] [address] DO Work Phone: Tobacco Screening. Somewhat Difficult [facility] [place] [address] DO Work Phone: CT STROKE HEAD WOon 04-08-[address] STROKE HEAD WO EXAM: CT STROKE HEAD WO CLINICAL INDICATION: BENIGN PAROXYSMAL VERTIGO, UNSPECIFIED EAR COMPARISON: None TECHNIQUE: Axial CT images of the brain were obtained without contrast. Dose reduction techniques were achieved by using automated exposure control and/or adjustment of mA and/or kV according to patient size and/or use of iterative reconstruction technique. FINDINGS: Brain parenchyma: No mass effect or midline shift is seen. Chatman-white differentiation is maintained. No findings suspicious for intracranial hemorrhage. No findings suggesting acute stroke. Periventricular hypoattenuation / patchy white matter hypodensities are statistically most often related to small vessel ischemic disease. Chronic infarct visualized involving the left posterior inferior temporal lobe. Ventricles and extra-axial spaces: Ventricles are concordant with sulci. No findings suggesting hydrocephalus. Visualized paranasal sinuses: Moderate mucosal thickening noted along the left sphenoid sinus with a mucous retention cyst versus a polyp. Mastoid air cells: Clear. Included portions of the orbits:Included portions of the orbits with no evidence of fracture or other acute pathology. Bones: No fracture is seen. Impression: 1. No evidence for an acute intracranial abnormality. 2. 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 3. Stable atrophic changes of the cerebral parenchyma with stable chronic small vessel ischemic disease. Findings relayed to Dr. Arreguin at 12:27 AM on 04/08/2022. No findings suspicious for acute stroke by noncontrast head CT. If there is high suspicion for acute intracranial pathology, please note that magnetic resonance imaging or other additional evaluation may be more sensitive than noncontrast head CT. Electronically authenticated by: EBONI PETE Date: 2022-04-08 00:27 Normal [facility] CARDIAC STRESS/REST INJE CTIONon 10-03-2021 [facility] CARDIAC STRESS/REST INJECTION Patient Name: NEIL WILCOX STUDY: MYOCARDIAL PERFUSION STRESS TEST WITH LEXISCAN Performing facility: [facility], [address] [place] [address], [address], [address] Provider: Loulou Arreguin RN, [employer] PCP: Dr. Paul Cooney Supervising provider: Erick Wise DO, [facility] INDICATION: HTN Fatigue HISTORY: Gender: M; Age: 75 y/o ; Height: 0 cm; Weight: 0 kg. High Cholesterol; HTN; Fatigue; TIA Vertigo Denies smoking. COMPARISON: No comparison. ACCESSION NUMBER(S): [id number]; [id number]; [id number] ORDERING CLINICIAN: LOULOU ARREGUIN TECHNIQUE: ONE DAY protocol. Stress injection: Date:10-03-21, 33.0 mCi of Myoview IV 20 seconds after rapid injection of Lexiscan. Rest injection: Date: 10-03-21, 11.0 mCi of Myoview IV at rest. The patient had a rapid injection of 0.4 mg of Lexiscan IV over 10 seconds. Imaging was performed by gated tomographic technique. Reason for Lexiscan: dizziness/unsteady/fal l risk STRESS TEST DATA: Resting heart rate was 61 BPM. Resting blood pressure was 152/100 mmHg. Peak blood pressure was 172/98 mmHg. Peak heart rate was 77 BPM. TEST TERMINATED DUE TO: Protocol completed FINDINGS: STRESS TEST RESULTS: Resting electrocardiogram revealed normal sinus rhythm. There were no significant ischemic ECG changes or dysrhythmias. The patient did not have chest pains/symptoms during procedure. There was a normal recovery phase. IMAGING RESULTS: Image quality was good. Rest and stress tomographic images were reviewed and revealed normal perfusion without evidence of ischemia, myocardial infarction, or left ventricular dilatation with stress. Overall left ventricular systolic function appeared to be normal without regional wall motion abnormalities. Ejection fraction was 53%. TID is 1.17 and is normal. There was no evidence of attenuation artifact. IMPRESSION: Normal Lexiscan Myoview cardiac perfusion stress test. No evidence of ischemia or myocardial infarction by perfusion imaging. Normal left ventricular systolic function, ejection fraction 53%. No previous studies are available for comparison. Electronically signed by: MATTI MIDDLETON MD Normal [facility] Risk Screeningon 08-31 Fall risk assessment a) No falls within the last year [facility] [address] DO Work Phone: Tobacco use status [facility] b) No M [facility] [address] [place] Work Phone: Tobacco Screening.on Fall risk assessment a) No falls within the last year [facility] [address] DO Work Phone: Tobacco use status [facility] b) No M [facility] [address] DO Work Phone: BASIC METABOLIC PANELon 03-24 Calcium [Mass/Vol] 8.9 mg/dL Normal 8.5-10.[address] [facility] Comment on above: Result Comment: RESU LT CHECKED Anion gap [Moles/Vol] 9 mmol/L Normal 0-19 [facility] Chloride [Moles/Vol] 104 mmol/L Normal 97-107 [facility] CO2 [Moles/Vol] 24 mmol/L Normal 24-31 [facility] Creatinine [Mass/Vol] 0.9 mg/dL Normal 0.4-1.6 [facility] ESTIMATED GFR 88 mL/min/1.73 m2 Normal [facility] Comment on above: Result Comment: GFR ml/min/1.73m2 Stage ----- 90 1 60-89 2 30-59 3 15-29 4 <15 5 For -Americans, multiply EGFR result by 1.210 Calculation not validated for patients under 18 years of age. Performed at [address] [address] Glucose [Mass/Vol] 134 mg/dL High 65-[address] [facility] Potassium [Moles/Vol] 3.9 mmol/L Normal 3.4-5.1 [facility] Sodium [Moles/Vol] 137 mmol/L Normal 133-[address] [facility] Urea nitrogen [Mass/Vol] 13 mg/dL Normal 8-25 [facility] Urea nitrogen/Creatinine [Mass ratio] 14.4 mg/mg Normal 8-21 [facility] CBC with Diffon 04-06-2021 AB IMMATURE NEUT 0.00 K/UL Normal 0.0-0.1 [facility] ABS BASO 0.00 K/UL Normal 0.00-0.22 [facility] ABS EOS 0.02 K/UL Normal 0-0.45 [facility] ABS NEUTROPHILS 3.73 K/UL Normal 1.8-7.7 [facility] ABS.NEUT.CALCULATED 3.73 K/UL Normal [facility] Comment on above: Result Comment: Perf ormed at [address] [address] Basophils/100 WBC (Bld) 0.00 % Normal 0-1 L [facility] DIFF TYPE AUTO DIFF Normal [facility] Eosinophils/100 WBC (Bld) 0.40 % Normal 0-3 [facility] Erythrocyte distribution width (RBC) [Ratio] 11.6 % Low 11.7-15.0 [facility] Hematocrit (Bld) [Volume fraction] 29.6 % Low 41-50 [facility] Hemoglobin (Bld) [Mass/Vol] 10.0 g/dL Low 13.5-16.5 [facility] Lymphocytes (Bld) [#/Vol] 0.97 10*3/uL Low 1.2-3.2 [facility] Lymphocytes/100 WBC (Bld) 19.10 % Low 20-40 [facility] MCH (RBC) [Entitic mass] 35.5 pg High 26-34 [facility] MCHC 33.8 % Normal 31-37 [facility] MCV (RBC) [Entitic vol] 105.0 fL High 80-100 [facility] MEAN PLT VOL 8.4 CU Normal 7.0-12.6 [facility] Monocytes (Bld) [#/Vol] 0.35 10*3/uL Normal 0-0.8 [facility] Monocytes/100 WBC (Bld) 6.90 % Normal 0-8 [facility] Neutrophils/100 WBC (Bld) 0.00 % Normal 0.0-1.0 [facility] Neutrophils/100 WBC (Bld) 73.60 % High 50-70 [facility] Platelets (Bld) [#/Vol] 115 10*3/uL Low 150-450 [facility] RBC (Bld) [#/Vol] 2.82 10*6/uL Low 4.5-5.5 [facility] RDW-SD 44.8 FL Normal 37.0-54.0 [facility] WBC (Bld) [#/Vol] 5.1 10*3/uL Normal 4.5-11.[address] [facility] PROTHROMBIN TIMEon INR Coag (PPP) [Relative time] 1.0 {INR} Normal 0.86-1.16 [facility] Comment on above: Result Comment: INR Theraputic Range: 2.0-3.5 Performed at [place] [address] PT Coag (PPP) [Time] 11.3 s Normal 9.3-12.7 [facility] ANTICOAGULANT INFORMATION NOT REPORTED TO LABORATORY Normal [facility] PTTon 04-06-2021 aPTT Coag (Bld) [Time] 21.9 s Low 22.0-32.5 [facility] Comment on above: Result Comment: Perf ormed at [address] [place] [id number] CBC with Diffon 04-01-2021 AB IMMATURE NEUT 0.00 K/UL Normal 0.0-0.1 [facility] ABS BASO 0.02 K/UL Normal 0.00-0.22 [facility] ABS EOS 0.19 K/UL Normal 0-0.45 [facility] ABS NEUTROPHILS 1.56 K/UL Low 1.8-7.7 [facility] ABS.NEUT.CALCULATED 1.56 K/UL Normal [facility] Comment on above: Result Comment: Perf ormed at [facility] [address] [facility] [address] Basophils/100 WBC (Bld) 0.60 % Normal 0-1 [facility] DIFF TYPE AUTO DIFF Normal [facility] Eosinophils/100 WBC (Bld) 5.30 % High 0-3 [facility] Erythrocyte distribution width (RBC) [Ratio] 11.6 % Low 11.7-15.0 [facility] Hematocrit (Bld) [Volume fraction] 40.9 % Low 41-50 [facility] Hemoglobin (Bld) [Mass/Vol] 13.4 g/dL Low 13.5-16.5 [facility] Lymphocytes (Bld) [#/Vol] 1.44 10*3/uL Normal 1.2-3.2 [facility] Lymphocytes/100 WBC (Bld) 40.30 % High 20-40 [facility] MCH (RBC) [Entitic mass] 35.2 pg High 26-34 [facility] MCHC 32.8 % Normal 31-37 [facility] MCV (RBC) [Entitic vol] 107.3 fL High 80-100 [facility] MEAN PLT VOL 8.5 CU Normal 7.0-12.6 [facility] Monocytes (Bld) [#/Vol] 0.36 10*3/uL Normal 0-0.8 [facility] Monocytes/100 WBC (Bld) 10.10 % High 0-8 [facility] Neutrophils/100 WBC (Bld) 0.00 % Normal 0.0-1.0 [facility] Neutrophils/100 WBC (Bld) 43.70 % Low 50-70 [facility] Platelets (Bld) [#/Vol] 149 10*3/uL Low 150-450 [facility] RBC (Bld) [#/Vol] 3.81 10*6/uL Low 4.5-5.5 [facility] RDW-SD 46.3 FL Normal 37.0-54.0 [facility] WBC (Bld) [#/Vol] 3.6 10*3/uL Low 4.5-11.[address] [facility] COMPREHENSIVE METABOLIC PANE Melvin 04-01-2021 Albumin [Mass/Vol] 4.1 g/dL Normal 3.5-5.[address] [facility] Albumin/Globulin [Mass ratio] 1.2 {ratio} Low 1.5-3.0 [facility] ALP [Catalytic activity/Vol] 77 U/L Normal 35-125 [facility] ALT [Catalytic activity/Vol] 16 U/L Normal 5-40 [facility] Anion gap [Moles/Vol] 10 mmol/L Normal 0-19 [facility] AST [Catalytic activity/Vol] 18 U/L Normal 5-40 [facility] Bilirubin [Mass/Vol] 0.3 mg/dL Normal 0.1-1.2 [facility] Calcium [Mass/Vol] 10.0 mg/dL Normal 8.5-10.[address] [facility] Chloride [Moles/Vol] 104 mmol/L Normal 97-107 [facility] CO2 [Moles/Vol] 27 mmol/L Normal 24-31 [facility] Creatinine [Mass/Vol] 0.9 mg/dL Normal 0.4-1.6 [facility] ESTIMATED GFR 88 mL/min/1.73 m2 Normal [facility] Comment on above: Result Comment: GFR ml/min/1.73m2 Stage ----- 90 1 60-89 2 30-59 3 15-29 4 <15 5 For -Americans, multiply EGFR result by 1.210 Calculation not validated for patients under 18 years of age. Performed at [facility] [address] [facility] [address] Globulin (S) [Mass/Vol] 3.3 g/dL Normal 1.9-3.7 [facility] Glucose [Mass/Vol] 95 mg/dL Normal 65-[address] [facility] Potassium [Moles/Vol] 4.3 mmol/L Normal 3.4-5.1 [facility] Protein [Mass/Vol] 7.4 g/dL Normal 5.9-7.[address] [facility] Sodium [Moles/Vol] 141 mmol/L Normal 133-[address] [facility] Urea nitrogen [Mass/Vol] 16 mg/dL Normal 8-25 [facility] Urea nitrogen/Creatinine [Mass ratio] 17.8 mg/mg Normal 8-21 [facility] SARS-CoV-2,INFLUENZA A/B NUC LEIC ACID TESTon 04-01-2021 EUA DISCLAIMER Normal [facility] Comment on above: Result Comment: This test has been authorized by FDA under an EUA for use by CLIA Certified Moderate and High-Complexity laboratories and Point of Care (POC), i.e., in patient care settings operating under a CLIA Certificate of Waiver, Certificate of Compliance, or Certificate of Accreditation. This test has been authorized only for the simultaneous qualitative detection and differentiation of nucleic acid from SARS-CoV-2, influenza A virus, and influenza B virus and not for any other viruses or pathogens. This test is only authorized for the duration of the declaration that circumstances exist justifying the authorization of emergency use of in vitro diagnostic tests for the detection and/or diagnosis of COVID-19, unless the authorization is terminated or revoked sooner. Performed at [place] [address] FLU A by PCR Negative [facility] FLU B by PCR Negative Normal [facility] SARS-CoV-2 (COVID-19) RNA KEIKO+probe Ql (Unsp spec) Negative Normal NEG [facility] TYPE AND SCREENon 04-01-2021 TYPE AND SCREEN BLOOD COMPONENT TYPE - RED CELL GROUP Performed at [address] [address] UNITS ORDERED - 0 Performed at [place] [id number] SPECIMEN EXPIRATION - 04/08/2021 Performed at [address] [address] ABO/RH(D) - A POSITIVE Performed at [address] [address] ANTIBODY SCREEN - NEGATIVE Performed at [address] [address] ARM BAND NUMBER - [id number] Performed at [address] [address] SURGERY DATE - [id number] Performed at [address] [address] TEST ORDERED - TYPE AND SCREEN Performed at [place] [id number] PT TRANSFUSION HISTORY - BLOOD BANK RECORD SEARCH COMPLETED NO PREVIOUS RECORD NO PREVIOUS TRANSFUSIONS IN LIFETIME Performed at [address] [address] Normal [facility] Comment on above: Performed By: #### T YS #### Main Laboratory [address] [address] UA-REFLEX TO CULTUREon 04-01 RBC NONE SEEN Normal 0-3 [facility] Urinalysis dipstick W Reflex Microscopic panel (U) MANUAL MICROSCOPIC URINES Normal [facility] WBC NONE SEEN Normal 0-3 [facility] OTHER Normal [facility] Comment on above: Result Comment: MUCO US Performed at [place] [address] Bacteria identified Cx Nom (U) CULTURE NOT INDICATED Normal [facility] Comment on above: Result Comment: CULT URE NOT INDICATED Performed at [place] [address] [address] [facility] Clarity (U) CLEAR Normal [facility] Color (U) YELLOW Normal [facility] GLUC Negative Normal NEG [facility] Hemoglobin Ql (U) Negative Normal NEG [facility] KET Negative Normal NEG [facility] LEUK Negative Normal NEG [facility] NIT Negative Normal NEG [facility] pH (U) 6.5 [pH] Normal 4.6-8.0 [facility] PROT TRACE Abnormal NEG [facility] SP GRAV,URINE 1.025 Normal 1.005-1.030 [facility] URO 0.2 MG/DL Normal 0-1.0 [facility] Basophils Auto (Bld) [#/Vol] on 02-07-2021 Basophils (Bld) [#/Vol] 0.0 10*3/uL 0.0-0.2 [facility] Basophils/100 WBC Auto (Bld) on 02-07-2021 Basophils/100 WBC (Bld) 0.2 % F [facility] Blood hemoglobin measurement (mass/volume)on 02-07-2021 Hemoglobin (Bld) [Mass/Vol] 12.8 g/dL 13.0-17.0 [facility] Blood leukocytes automated c ount (number/volume)on 02-07-2021 WBC (Bld) [#/Vol] 3.5 10*3/uL 4.5-11.0 [facility] Body fluid albumin measureme nt (mass/volume)on 02-07-2021 Albumin (Body fld) [Mass/Vol] 3.7 g/dL 3.2-5.5 [facility] Cholesterol [Mass/volume] in Serum or Plasmaon 02-07-2021 Cholesterol [Mass/Vol] 127 mg/dL 140-200 Fi [facility] Comment on above: Chol less than 200 m g/dl low riskChol 201-239 mg/dl borderline riskChol 240 mg/dl and greater high risk Cholesterol in LDL Calc [Mas s/Vol]on 02-07-2021 Cholesterol in LDL [Mass/Vol] 66 mg/dL 0-100 [facility] Comment on above: LDL ATP III CLASSIFI CATIONLDL less than 100 mg/dL OptimalLDL 100-129 mg/dL Near or above optimalLDL 130-159 mg/dL Borderline highLDL 160-189 mg/dL HighLDL greater than 189 mg/dL Very high Cholesterol in VLDL Calc [Ma ss/Vol]on 02-07-2021 Cholesterol in VLDL [Mass/Vol] 10 mg/dL [facility] Creatinine and Glomerular fi ltration rate.predicted panel (S/P/Bld)on 02-07-2021 Creatinine [Mass/Vol] 0.95 mg/dL 0.64-1.27 [facility] Eosinophils Auto (Bld) [#/Vo l]on 02-07-2021 Eosinophils (Bld) [#/Vol] 0.2 10*3/uL 0.0-0.45 [facility] Eosinophils/100 WBC Auto (Bl d)on 02-07-2021 Eosinophils/100 WBC (Bld) 5.2 % [facility] Erythrocyte distribution wid th Auto (RBC) [Ratio]on 02-07-2021 Erythrocyte distribution width (RBC) [Ratio] 13.0 % 12.0-14.8 [facility] Estimated glomerular filtrat ion rate (GFR) non- Americanon 02-07-2021 GFR/1.73 sq M.predicted among non-blacks MDRD (S/P/Bld) [Vol rate/Area] > 60 mL/Min [facility] Globulin Calc (S) [Mass/Vol] on 02-07-2021 Globulin (S) [Mass/Vol] 3.6 g/dL F [facility] Hematocrit Auto (Bld) [Volum e fraction]on 02-07-2021 Hematocrit (Bld) [Volume fraction] 38.4 % 38.8-50.0 [facility] Laboratory - Hematology and Cell countson 02-07-2021 Nucleated RBC/100 WBC (Bld) [Ratio] 0.1 % 0-0.5 [facility] Lymphocytes Auto (Bld) [#/Vo l]on 02-07-2021 Lymphocytes (Bld) [#/Vol] 1.2 10*3/uL 1.00-4.8 [facility] Lymphocytes/100 WBC Auto (Bl d)on 02-07-2021 Lymphocytes/100 WBC (Bld) 33.5 % [facility] MCH Auto (RBC) [Entitic mass ]on 02-07-2021 MCH (RBC) [Entitic mass] 35.8 pg 27.5-35.2 [facility] MCHC Auto (RBC) [Mass/Vol]on 02-07-2021 MCHC (RBC) [Mass/Vol] 33.4 g/dL 32.5-35.6 [facility] MCV Auto (RBC) [Entitic vol] on 02-07-2021 MCV (RBC) [Entitic vol] 107.1 fL 83.5-101 F [facility] Monocytes Auto (Bld) [#/Vol] on 02-07-2021 Monocytes (Bld) [#/Vol] 0.4 10*3/uL 0.0-0.8 [facility] Monocytes/100 WBC Auto (Bld) on 02-07-2021 Monocytes/100 WBC (Bld) 10.3 % F [facility] Neutrophils Auto (Bld) [#/Vo l]on 02-07-2021 Neutrophils (Bld) [#/Vol] 1.8 10*3/uL 1.8-7.7 [facility] Neutrophils/100 WBC Auto (Bl d)on 02-07-2021 Neutrophils/100 WBC (Bld) 50.8 % [facility] No Panel Informationon 02-07 Estimated GFR () > 60 mL/Min [facility] Comment on above: GFR estimated refere nce range: According to KDOQI guidelines, <60 ml/min/1.73m2 is sufficient to diagnose a patient with chronic kidney disease. Pharmacy Creatinine Clearance (Chem N/A [facility] Platelet mean volume Auto (B ld) [Entitic vol]on 02-07-2021 Platelet mean volume (Bld) [Entitic vol] 6.7 fL 6.6-10.1 [facility] Platelets Auto (Bld) [#/Vol] on 02-07-2021 Platelets (Bld) [#/Vol] 220 10*3/uL 150-450 [facility] Protein [Mass/volume] in Ser um or Plasmaon 02-07-2021 Protein [Mass/Vol] 7.3 g/dL 6.1-7.9 [facility] RBC Auto (Bld) [#/Vol]on RBC (Bld) [#/Vol] 3.59 10*6/uL 3.90-5.60 [facility] Serum or plasma alanine huntley otransferase measurement without P-5'-P (enzymatic activion 02-07-2021 ALT No additional P-5'-P [Catalytic activity/Vol] 13 U/L 10-60 [facility] Serum or plasma albumin/glob ulin mass ratioon 02-07-2021 Albumin/Globulin [Mass ratio] 1.0 {ratio} [facility] Serum or plasma alkaline latoya sphatase measurement (enzymatic activity/volume)on 02-07-2021 ALP [Catalytic activity/Vol] 71 U/L 32-92 [facility] Serum or plasma aspartate am inotransferase measurement (enzymatic activity/volume)on 02-07-2021 AST [Catalytic activity/Vol] 13 U/L 10-42 [facility] Serum or plasma calcium ilana urement (mass/volume)on 02-07-2021 Calcium [Mass/Vol] 9.7 mg/dL 8.2-10.2 [facility] Serum or plasma chloride rishabh surement (moles/volume)on 02-07-2021 Chloride [Moles/Vol] 102 mmol/L 95-114 [facility] Serum or plasma glucose ilana urement (mass/volume)on 02-07-2021 Glucose [Mass/Vol] 95 mg/dL 70-100 [facility] Comment on above: ADA recommended refe rence rangeRandom Glucose Reference Range is dependent on time and content of last meal. Glucose of more than 200 mg/dL in a nonstressed, ambulatory subject supports the diagnosis of Diabetes Mellitus. Serum or plasma high density lipoprotein (HDL) cholesterol measurementon 02-07-2021 Cholesterol in HDL [Mass/Vol] 51 mg/dL 29-71 [facility] Comment on above: HDL CHOL ATP-III CLA SSIFICATION Cardiovascular RiskHDL > or equal to 60 mg/dL LOWHDL < 40 mg/dL HIGH Serum or plasma potassium me asurement (moles/volume)on 02-07-2021 Potassium [Moles/Vol] 4.5 mmol/L 3.5-5.1 [facility] Serum or plasma sodium measu rement (moles/volume)on 02-07-2021 Sodium [Moles/Vol] 137 mmol/L 136-146 [facility] Serum or plasma total biliru bin measurement (mass/volume)on 02-07-2021 Bilirubin [Mass/Vol] 0.6 mg/dL 0.3-1.2 [facility] Serum or plasma total carbon dioxide measurement (moles/volume)on 02-07-2021 CO2 [Moles/Vol] 24.7 mmol/L 22.0-30.0 [facility] Serum or plasma total choles terol/high density lipoprotein (HDL) cholesterol mass noni 02-07-2021 Cholesterol.total/Suzette sterol in HDL [Mass ratio] 2.5 {ratio} [facility] Serum or plasma urea nitroge n measurement (mass/volume)on 02-07-2021 Urea nitrogen [Mass/Vol] 19 mg/dL 9- [facility] TSH DL <= 0.005 mIU/L Qnon 0 02-07-2021 TSH Qn 1.17 m[IU]/L 0.45-5.33 [facility] Thyroxine (T4) free [Mass/vo lume] in Serum or Plasmaon 02-07-2021 Free T4 [Mass/Vol] 0.88 ng/dL 0.61-1.12 [facility] Triglyceride [Mass/volume] i n Serum or Plasmaon 02-07-2021 Triglyceride [Mass/Vol] 52 mg/dL 35-149 F [facility] Comment on above: TRIG ATP III CLASSIF ICATIONTRIG less than 150 mg/dL NormalTRIG 150-199 mg/dL Borderline highTRIG 200-500 mg/dL High TRIG greater than 500 mg/dL Very highStandard traceable to the Center for Disease Conrtrol and Prevention (CDC) test method. WOUND CULTURE-TISSUEon 12-22 WOUND CULTURE-TISSUE Specimen source XXX : SHOULDER RIGHT Performed at [place] [id number] Service Cmnt XXX-Imp: HOLD FOR 2 WEEKS Microscopic observation: NO ORGANISMS SEEN 1+ WBC Bacteria identified: ANAEROBIC GRAM POSITIVE BACILLI ONE COLONY MOST CLOSELY RESEMBLING CUTIBACTERIUM (PROPIONIBACTERIUM) ACNES Performed at [facility],[address] [place] [address] : FINAL 12/22/2020 Normal [facility] Comment on above: Performed By: #### [facility] #### [facility] [place] [address] CBC with Diffon 12-17-2020 AB IMMATURE NEUT 0.00 K/UL Normal 0.0-0.1 Pending sale to [facility] ABS BASO 0.00 K/UL Normal 0.00-0.22 [facility] ABS EOS 0.00 K/UL Normal 0-0.45 [facility] ABS NEUTROPHILS 2.47 K/UL Normal 1.8-7.7 [facility] ABS.NEUT.CALCULATED 2.47 K/UL Normal [facility] Comment on above: Result Comment: Perf ormed at [place] [id number] Basophils/100 WBC (Bld) 0.00 % Normal 0-1 [facility] DIFF TYPE AUTO DIFF Normal [facility] Eosinophils/100 WBC (Bld) 0.00 % Normal 0-3 [facility] Erythrocyte distribution width (RBC) [Ratio] 12.1 % Normal 11.7-15.0 [facility] Hematocrit (Bld) [Volume fraction] 30.6 % Low 41-50 [facility] Hemoglobin (Bld) [Mass/Vol] 10.4 g/dL Low 13.5-16.5 [facility] Lymphocytes (Bld) [#/Vol] 0.75 10*3/uL Low 1.2-3.2 [facility] Lymphocytes/100 WBC (Bld) 20.90 % Normal 20-40 [facility] MCH (RBC) [Entitic mass] 36.2 pg High 26-34 [facility] MCHC 34.0 % Normal 31-37 [facility] MCV (RBC) [Entitic vol] 106.6 fL High 80-100 [facility] MEAN PLT VOL 8.4 CU Normal 7.0-12.6 [facility] Monocytes (Bld) [#/Vol] 0.37 10*3/uL Normal 0-0.8 [facility] Monocytes/100 WBC (Bld) 10.30 % High 0-8 [facility] Neutrophils/100 WBC (Bld) 0.00 % Normal 0.0-1.0 [facility] Neutrophils/100 WBC (Bld) 68.80 % Normal 50-70 [facility] Platelets (Bld) [#/Vol] 122 10*3/uL Low 150-450 [facility] RBC (Bld) [#/Vol] 2.87 10*6/uL Low 4.5-5.5 [facility] RDW-SD 47.8 FL Normal 37.0-54.0 [facility] WBC (Bld) [#/Vol] 3.6 10*3/uL Low 4.5-11.[address] [facility] COMPREHENSIVE METABOLIC PANE Melvin 12-17-2020 Albumin [Mass/Vol] 3.5 g/dL Normal 3.5-5.[address] [facility] Albumin/Globulin [Mass ratio] 1.3 {ratio} Low 1.5-3.0 [facility] ALP [Catalytic activity/Vol] 63 U/L Normal 35-125 [facility] ALT [Catalytic activity/Vol] 10 U/L Normal 5-40 [facility] Comment on above: Result Comment: Perf ormed at [facility] [address] [facility] [address] Anion gap [Moles/Vol] 11 mmol/L Normal 0-19 [facility] AST [Catalytic activity/Vol] 15 U/L Normal 5-40 [facility] Bilirubin [Mass/Vol] 0.7 mg/dL Normal 0.1-1.2 [facility] Calcium [Mass/Vol] 9.0 mg/dL Normal 8.5-10.[address] [facility] Chloride [Moles/Vol] 99 mmol/L Normal 97-107 [facility] CO2 [Moles/Vol] 26 mmol/L Normal 24-31 [facility] Creatinine [Mass/Vol] 0.9 mg/dL Normal 0.4-1.6 [facility] Globulin (S) [Mass/Vol] 2.7 g/dL Normal 1.9-3.7 [facility] Glucose [Mass/Vol] 129 mg/dL High 65-[address] [facility] Potassium [Moles/Vol] 3.8 mmol/L Normal 3.4-5.1 [facility] Protein [Mass/Vol] 6.2 g/dL Normal 5.9-7.[address] [facility] Sodium [Moles/Vol] 136 mmol/L Normal 133-[address] [facility] Urea nitrogen [Mass/Vol] 13 mg/dL Normal 8-25 [facility] Urea nitrogen/Creatinine [Mass ratio] 14.4 mg/mg Normal 8-21 [facility] FREE T4on 12-09-2020 Free T4 [Mass/Vol] 1.2 ng/dL Normal 0.9-1.[address] [facility] Comment on above: Result Comment: Perf ormed at [place] [address] Performed By: #### [facility] #### [place] [address] CBC with Diffon 12-08-2020 ABS NEUTROPHILS 1.38 K/UL Low 1.8-7.7 [facility] Comment on above: Result Comment: DARELL ECTED ON 12/08 AT 1254: PREVIOUSLY REPORTED 1.39 PLATELET ESTIMATE ADEQUATE Normal [facility] RBC morphology finding Nom (Bld) CONSISTENT WITH PERIPHERAL SMEAR Normal [facility] WBC MORPHOLOGY SMEAR REVIEWED AND FOUND CONSISTENT WITH AUTOMATED DIFFERENTIAL Normal [facility] AB IMMATURE NEUT 0.00 K/UL Normal 0.0-0.1 Pending sale to [facility] ABS BASO 0.01 K/UL Normal 0.00-0.22 [facility] ABS EOS 0.20 K/UL Normal 0-0.45 [facility] ABS.NEUT.CALCULATED 1.39 K/UL Normal [facility] Comment on above: Result Comment: Perf ormed at [facility] [address] [facility] [address] Basophils/100 WBC (Bld) 0.30 % Normal 0-1 [facility] DIFF TYPE AUTO DIFF Normal [facility] Eosinophils/100 WBC (Bld) 6.40 % High 0-3 [facility] Erythrocyte distribution width (RBC) [Ratio] 11.9 % Normal 11.7-15.0 [facility] Hematocrit (Bld) [Volume fraction] 40.0 % Low 41-50 [facility] Hemoglobin (Bld) [Mass/Vol] 13.5 g/dL Normal 13.5-16.5 [facility] Lymphocytes (Bld) [#/Vol] 1.20 10*3/uL Normal 1.2-3.2 [facility] Lymphocytes/100 WBC (Bld) 38.60 % Normal 20-40 [facility] MCH (RBC) [Entitic mass] 36.0 pg High 26-34 [facility] MCHC 33.8 % Normal 31-37 [facility] MCV (RBC) [Entitic vol] 106.7 fL High 80-100 [facility] MEAN PLT VOL 8.5 CU Normal 7.0-12.6 [facility] Monocytes (Bld) [#/Vol] 0.31 10*3/uL Normal 0-0.8 [facility] Monocytes/100 WBC (Bld) 10.00 % High 0-8 [facility] Neutrophils/100 WBC (Bld) 0.00 % Normal 0.0-1.0 [facility] Neutrophils/100 WBC (Bld) 44.70 % Low 50-70 [facility] Platelets (Bld) [#/Vol] 168 10*3/uL Normal 150-450 [facility] RBC (Bld) [#/Vol] 3.75 10*6/uL Low 4.5-5.5 [facility] RDW-SD 46.6 FL Normal 37.0-54.0 [facility] WBC (Bld) [#/Vol] 3.1 10*3/uL Low 4.5-11.[address] [facility] COMPREHENSIVE METABOLIC PANE Melvin 12-08-2020 Albumin [Mass/Vol] 4.2 g/dL Normal 3.5-5.[address] [facility] Albumin/Globulin [Mass ratio] 1.3 {ratio} Low 1.5-3.0 [facility] ALP [Catalytic activity/Vol] 77 U/L Normal 35-125 [facility] ALT [Catalytic activity/Vol] 10 U/L Normal 5-40 [facility] Anion gap [Moles/Vol] 10 mmol/L Normal 0-19 [facility] AST [Catalytic activity/Vol] 16 U/L Normal 5-40 [facility] Bilirubin [Mass/Vol] 0.7 mg/dL Normal 0.1-1.2 [facility] Calcium [Mass/Vol] 9.6 mg/dL Normal 8.5-10.[address] [facility] Chloride [Moles/Vol] 102 mmol/L Normal 97-107 [facility] CO2 [Moles/Vol] 28 mmol/L Normal 24-31 [facility] Creatinine [Mass/Vol] 1.1 mg/dL Normal 0.4-1.6 [facility] ESTIMATED GFR 70 mL/min/1.73 m2 Normal [facility] Comment on above: Result Comment: GFR ml/min/1.73m2 Stage ----- 90 1 60-89 2 30-59 3 15-29 4 <15 5 For -Americans, multiply EGFR result by 1.210 Calculation not validated for patients under 18 years of age. Performed at [facility] [address] [facility] [address] Globulin (S) [Mass/Vol] 3.2 g/dL Normal 1.9-3.7 [facility] Glucose [Mass/Vol] 94 mg/dL Normal 65-[address] [facility] Potassium [Moles/Vol] 4.1 mmol/L Normal 3.4-5.1 [facility] Protein [Mass/Vol] 7.4 g/dL Normal 5.9-7.[address] [facility] Sodium [Moles/Vol] 140 mmol/L Normal 133-[address] [facility] Urea nitrogen [Mass/Vol] 15 mg/dL Normal 8-25 [facility] Urea nitrogen/Creatinine [Mass ratio] 13.6 mg/mg Normal 8-21 [facility] EKGon 12-08-2020 Electrocardiogram EKG Ventricular Rate : 57 BPM Atrial Rate : 57 BPM P-R Interval : 174 ms QRS Duration : 102 ms Q-T Interval : 430 ms QTC Calculation(Bazett) : 418 ms Calculated P [place] : 74 degrees Calculated R [place] : 56 degrees Calculated T [place] : 69 degrees Diagnosis:Sinus bradycardia with Premature atrial complexes and Premature ventricular complexes or Fusion complexes Otherwise normal ECG When compared with ECG of 08-DEC-2020 11:04, Premature atrial complexes are now Present Confirmed by XIN TONG DO ([id number]) on 12/10/2020 9:36:45 AM [facility] Electrocardiogram EKG Ventricular Rate : 51 BPM Atrial Rate : 51 BPM P-R Interval : 186 ms QRS Duration : 102 ms Q-T Interval : 432 ms QTC Calculation(Bazett) : 398 ms Calculated P [place] : 70 degrees Calculated R [place] : 44 degrees Calculated T [place] : 63 degrees Diagnosis:Sinus bradycardia with occasional Premature ventricular complexes Otherwise normal ECG No previous ECGs available Confirmed by XIN TONG DO ([id number]) on 12/10/2020 9:37:02 AM [facility] SARS-CoV-2,INFLUENZA A/B NUC LEIC ACID TESTon 12-08-2020 EUA DISCLAIMER [facility] Comment on above: Result Comment: This test has been authorized by FDA under an EUA for use by CLIA Certified Moderate and High-Complexity laboratories and Point of Care (POC), i.e., in patient care settings operating under a CLIA Certificate of Waiver, Certificate of Compliance, or Certificate of Accreditation. This test has been authorized only for the simultaneous qualitative detection and differentiation of nucleic acid from SARS-CoV-2, influenza A virus, and influenza B virus and not for any other viruses or pathogens. This test is only authorized for the duration of the declaration that circumstances exist justifying the authorization of emergency use of in vitro diagnostic tests for the detection and/or diagnosis of COVID-19, unless the authorization is terminated or revoked sooner. Performed at [facility] [address] [facility] [address] FLU A by PCR Negative [facility] FLU B by PCR Negative [facility] SARS-CoV-2 (COVID-19) RNA KEIKO+probe Ql (Unsp spec) Negative Normal NEG [facility] TSHon 12-08-2020 TSH 0.24 MIU/L Low 0.27-4.20 [facility] Comment on above: Result Comment: Perf ormed at [facility] [address] [address] [facility] [address] Performed By: #### T PSYCHIATRIC ####Main [place] [address] [place] [address] UA-REFLEX TO CULTUREon 12-08 RBC OCC Normal 0-3 [facility] Urinalysis dipstick W Reflex Microscopic panel (U) MANUAL MICROSCOPIC URINES Normal [facility] WBC OCC Normal 0-3 [facility] OTHER Normal [facility] Comment on above: Result Comment: PRES ENT MUCOUS Performed at [address] [address] Bacteria identified Cx Nom (U) CULTURE NOT INDICATED Normal [facility] Comment on above: Result Comment: CULT URE NOT INDICATED Performed at [address] [address] BILI Negative Normal NEG [facility] Clarity (U) CLEAR Normal [facility] Color (U) YELLOW Normal [facility] GLUC Negative Normal NEG [facility] Hemoglobin Ql (U) Negative Normal NEG [facility] KET Negative Normal NEG [facility] LEUK Negative Normal NEG [facility] NIT Negative Normal NEG [facility] pH (U) 6.0 [pH] Normal 4.6-8.0 [facility] PROT TRACE Abnormal NEG [facility] SP GRAV,URINE 1.025 Normal 1.005-1.030 [facility] URO 0.2 MG/DL Normal 0-1.0 [facility] B12/Folate Panelon Cobalamin (Vitamin B12) [Mass/Vol] 507 pg/mL Normal 232-1245 [facility] Comment on above: Performed By: #### F T4, B12FOL, TSHX #### [employer] [address] [place], [place] [id number] [employer]iser: Juan F Dominguez MD Folic Acid 10.6 ng/mL Normal >4.8 [facility] Comment on above: Performed By: #### F T4, B12FOL, TSHX #### [employer] [address] [place], [place] [id number] [employer]iser: Juan F Dominguez MD T4, Freeon 10-13-2020 Thyroxine, Free 0.97 ng/dL 0.93 - 1.7 ng/dL [place], [place] TSH w/reflex to FT4on 2020 TSH Qn 0.04 m[IU]/L Low 0.30-5.00 [facility] Comment on above: Performed By: #### F T4, B12FOL, TSHX #### [facility] [place], [place] [id number] Tim[employer]iser: Juan F Dominguez MD TSH with Reflexon 10-13-2020 Interpretation and review of laboratory results Abnormal [place], [place] TSH Qn 0.04 m[IU]/L Low [place] Thyroxine, Freeon 10-13-2020 Thyroxine, Free 0.97 ng/dL Normal 0.93-1.70 [facility] Comment on above: Performed By: #### F T4, B12FOL, TSHX #### [facility] [employer] [address] [place] [id number] [employer]iser: Juan F Dominguez MD Vitamin B12 & Folateon 10-13 Cobalamin (Vitamin B12) [Mass/Vol] 507 pg/mL 232 - 1245 pg/mL [place], [place] Folate 10.6 ng/mL >4.8 [place], [place] C REACTIVE PROTEINon 021 C REACTIVE PROTEIN 0.3 MG/DL Normal 0-2.[address] [facility] Comment on above: Result Comment: LESS THAN Performed at [address] [address] Performed By: #### C RP #### Main Laboratory [address] [address] CBC with Diffon 10-11-2020 AB IMMATURE NEUT 0.00 K/UL Normal 0.0-0.1 Pending sale to [facility] ABS BASO 0.02 K/UL Normal 0.00-0.22 [facility] ABS EOS 0.21 K/UL Normal 0-0.45 [facility] ABS NEUTROPHILS 1.64 K/UL Low 1.8-7.7 [facility] ABS.NEUT.CALCULATED 1.64 K/UL Normal [facility] Comment on above: Result Comment: Perf ormed at [facility] [address] [facility] [address] Basophils/100 WBC (Bld) 0.50 % Normal 0-1 [facility] DIFF TYPE AUTO DIFF Normal [facility] Eosinophils/100 WBC (Bld) 5.10 % High 0-3 [facility] Erythrocyte distribution width (RBC) [Ratio] 11.3 % Low 11.7-15.0 [facility] Hematocrit (Bld) [Volume fraction] 39.6 % Low 41-50 [facility] Hemoglobin (Bld) [Mass/Vol] 13.6 g/dL Normal 13.5-16.5 [facility] Lymphocytes (Bld) [#/Vol] 1.74 10*3/uL Normal 1.2-3.2 [facility] Lymphocytes/100 WBC (Bld) 42.00 % High 20-40 [facility] MCH (RBC) [Entitic mass] 36.2 pg High 26-34 [facility] MCHC 34.3 % Normal 31-37 [facility] MCV (RBC) [Entitic vol] 105.3 fL High 80-100 [facility] MEAN PLT VOL 8.4 CU Normal 7.0-12.6 [facility] Monocytes (Bld) [#/Vol] 0.53 10*3/uL Normal 0-0.8 [facility] Monocytes/100 WBC (Bld) 12.80 % High 0-8 [facility] Neutrophils/100 WBC (Bld) 0.00 % Normal 0.0-1.0 [facility] Neutrophils/100 WBC (Bld) 39.60 % Low 50-70 [facility] Platelets (Bld) [#/Vol] 186 10*3/uL Normal 150-450 [facility] RBC (Bld) [#/Vol] 3.76 10*6/uL Low 4.5-5.5 [facility] RDW-SD 44.8 FL Normal 37.0-54.0 [facility] WBC (Bld) [#/Vol] 4.1 10*3/uL Low 4.5-11.0 [facility] SEDIMENTATION RATEon 01-18-2 021 SEDIMENTATION RATE 50 MM/HR High 0-[address] [facility] Comment on above: Result Comment: Perf ormed at [facility] [address] [facility] [address] Automated basophil %on 10-07 Basophils/100 WBC (Bld) 0.2 % F [facility] Automated basophil counton 0 2020 Basophils (Bld) [#/Vol] 0.0 10*3/uL 0.0-0.2 [facility] Automated blood lymphocyte c ount (number/volume)on 2020 Lymphocytes (Bld) [#/Vol] 1.2 10*3/uL 1.00-4.8 [facility] Automated blood lymphocyte c ount as percentage of total leukocyteson 2020 Lymphocytes/100 WBC (Bld) 25.0 % [facility] Automated blood monocyte cou nton 2020 Monocytes (Bld) [#/Vol] 0.6 10*3/uL 0.0-0.8 [facility] Automated blood platelet cou nt (count/volume)on 2020 Platelets (Bld) [#/Vol] 177 10*3/uL 150-450 [facility] Automated blood platelet rishabh n volume measurementon 2020 Platelet mean volume (Bld) [Entitic vol] 6.9 fL 6.6-10.1 [facility] Automated eosinophil %on Eosinophils/100 WBC (Bld) 3.8 % [facility] Automated eosinophil counton 2020 Eosinophils (Bld) [#/Vol] 0.2 10*3/uL 0.0-0.45 [facility] Automated erythrocyte distri bution width ratioon 2020 Erythrocyte distribution width (RBC) [Ratio] 12.3 % 12.0-14.8 [facility] Automated erythrocyte mean c orpuscular hemoglobin (mass per erythrocyte)on 2020 MCH (RBC) [Entitic mass] 35.9 pg 27.5-35.2 [facility] Automated erythrocyte mean c orpuscular hemoglobin concentration measurement (mass/volon 2020 MCHC (RBC) [Mass/Vol] 34.2 g/dL 32.5-35.6 [facility] Automated erythrocyte mean c orpuscular volumeon 2020 MCV (RBC) [Entitic vol] 105.1 fL 83.5-101 F [facility] Automated monocyte %on 10-07 Monocytes/100 WBC (Bld) 12.5 % F [facility] Automated neutrophil %on Neutrophils/100 WBC (Bld) 58.5 % [facility] Blood erythrocytes automated count (number/volume)on 2020 RBC (Bld) [#/Vol] 3.74 10*6/uL 3.90-5.60 [facility] Blood hemoglobin measurement (mass/volume)on 2020 Hemoglobin (Bld) [Mass/Vol] 13.4 g/dL 13.0-17.0 [facility] Blood leukocytes automated c ount (number/volume)on 2020 WBC (Bld) [#/Vol] 4.6 10*3/uL 4.5-11.0 [facility] Blood neutrophil count by au tomated method (number/volume)on 2020 Neutrophils (Bld) [#/Vol] 2.7 10*3/uL 1.8-7.7 [facility] Body fluid albumin measureme nt (mass/volume)on 2020 Albumin (Body fld) [Mass/Vol] 3.6 g/dL 3.2-5.5 [facility] Cholesterol [Mass/volume] in Serum or Plasmaon 2020 Cholesterol [Mass/Vol] 93 mg/dL 140-200 [facility] Comment on above: Chol less than 200 m g/dl low riskChol 201-239 mg/dl borderline riskChol 240 mg/dl and greater high risk Cholesterol in LDL [Mass/vol ume] in Serum or Plasma by calculationon 2020 Cholesterol in LDL [Mass/Vol] 42 mg/dL 0-100 [facility] Comment on above: LDL ATP III CLASSIFI CATIONLDL less than 100 mg/dL OptimalLDL 100-129 mg/dL Near or above optimalLDL 130-159 mg/dL Borderline highLDL 160-189 mg/dL HighLDL greater than 189 mg/dL Very high Cholesterol in VLDL [Mass/vo lume] in Serum or Plasma by calculationon 2020 Cholesterol in VLDL [Mass/Vol] 7 mg/dL [facility] Estimated glomerular filtrat ion rate (GFR) non- Americanon 2020 GFR/1.73 sq M predicted among non-blacks MDRD (S/P/Bld) [Vol rate/Area] 51 mL/min/{1.73_m2} [facility] Hematocrit [Volume Fraction] of Blood by Automated counton 2020 Hematocrit (Bld) [Volume fraction] 39.3 % 38.8-50.0 [facility] Otheron 2020 GFR/1.73 sq M.predicted MDRD (S/P/Bld) [Vol rate/Area] mL/min/{1.73_m2} [facility] Comment on above: GFR estimated refere nce range: According to KDOQI guidelines, <60 ml/min/1.73m2 is sufficient to diagnose a patient with chronic kidney disease. Nucleated RBC/100 WBC (Bld) [Ratio] 0.0 % 0-0.5 [facility] Creatinine Clearance (Chem N/A [facility] Protein [Mass/volume] in Ser um or Plasmaon 2020 Protein [Mass/Vol] 7.3 g/dL 6.1-7.9 [facility] Serum globulin measurement b y calculation (mass/volume)on 2020 Globulin (S) [Mass/Vol] 3.7 g/dL F [facility] Serum or plasma alanine huntley otransferase measurement without P-5'-P (enzymatic activion 2020 ALT No additional P-5'-P [Catalytic activity/Vol] 23 U/L 10-60 [facility] Serum or plasma albumin/glob ulin mass ratioon 2020 Albumin/Globulin [Mass ratio] 1.0 {ratio} [facility] Serum or plasma alkaline latoya sphatase measurement (enzymatic activity/volume)on 2020 ALP [Catalytic activity/Vol] 63 U/L 32-92 [facility] Serum or plasma aspartate am inotransferase measurement (enzymatic activity/volume)on 2020 AST [Catalytic activity/Vol] 18 U/L 10-42 [facility] Serum or plasma calcium ilana urement (mass/volume)on 2020 Calcium [Mass/Vol] 9.8 mg/dL 8.2-10.2 [facility] Serum or plasma chloride rishabh surement (moles/volume)on 2020 Chloride [Moles/Vol] 104 mmol/L 95-114 [facility] Serum or plasma creatinine m easurement with calculation of estimated glomerular filtron 2020 Creatinine [Mass/Vol] 1.37 mg/dL 0.64-1.27 [facility] Serum or plasma glucose ilana urement (mass/volume)on 2020 Glucose [Mass/Vol] 116 mg/dL 70-100 [facility] Comment on above: ADA recommended refe rence rangeRandom Glucose Reference Range is dependent on time and content of last meal. Glucose of more than 200 mg/dL in a nonstressed, ambulatory subject supports the diagnosis of Diabetes Mellitus. Serum or plasma high density lipoprotein (HDL) cholesterol measurementon 2020 Cholesterol in HDL [Mass/Vol] 43 mg/dL 29-71 [facility] Comment on above: HDL CHOL ATP-III CLA SSIFICATION Cardiovascular RiskHDL > or equal to 60 mg/dL LOWHDL < 40 mg/dL HIGH Serum or plasma potassium me asurement (moles/volume)on 2020 Potassium [Moles/Vol] 4.1 mmol/L 3.5-5.1 [facility] Serum or plasma sodium measu rement (moles/volume)on 2020 Sodium [Moles/Vol] 140 mmol/L 136-146 [facility] Serum or plasma total biliru bin measurement (mass/volume)on 2020 Bilirubin [Mass/Vol] 0.7 mg/dL 0.3-1.2 [facility] Serum or plasma total carbon dioxide measurement (moles/volume)on 2020 CO2 [Moles/Vol] 24.4 mmol/L 22.0-30.0 [facility] Serum or plasma total choles terol/high density lipoprotein (HDL) cholesterol mass noni 2020 Cholesterol.total/Suzette sterol in HDL [Mass ratio] 2.2 {ratio} [facility] Serum or plasma urea nitroge n measurement (mass/volume)on 2020 Urea nitrogen [Mass/Vol] 24 mg/dL 9-23 [facility] Triglyceride [Mass/volume] i n Serum or Plasmaon 2020 Triglyceride [Mass/Vol] 39 mg/dL 35-149 F [facility] Comment on above: TRIG ATP III CLASSIF ICATIONTRIG less than 150 mg/dL NormalTRIG 150-199 mg/dL Borderline highTRIG 200-500 mg/dL High TRIG greater than 500 mg/dL Very highStandard traceable to the Center for Disease Conrtrol and Prevention (CDC) test method. CT HEAD WO CONTRASTon 2019 CT HEAD WO CONTRAST EXAMINATION: CT OF THE HEAD WITHOUT CONTRAST 02/04/2020 3:42 pm TECHNIQUE: CT of the head was performed without the administration of intravenous contrast. Dose modulation, iterative reconstruction, and/or weight based adjustment of the mA/kV was utilized to reduce the radiation dose to as low as reasonably achievable. COMPARISON: None. HISTORY: ORDERING SYSTEM PROVIDED HISTORY: 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) TECHNOLOGIST PROVIDED HISTORY: follow up on hemorrhagic transformation on previous ct FINDINGS: BRAIN/VENTRICLES: There is no acute intracranial hemorrhage, mass effect, or midline shift. There is continued evolution of a left posterior cerebral artery infarct. There is satisfactory overall chatman-white matter differentiation. The ventricular structures are symmetric and unremarkable. The infratentorial structures are unremarkable. ORBITS: The visualized portion of the orbits demonstrate no acute abnormality. SINUSES: The visualized paranasal sinuses and mastoid air cells demonstrate no acute abnormality. SOFT TISSUES/SKULL: No acute abnormality of the visualized skull or soft tissues. 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 [facility], [place] EXAMINATION: CT OF T HE HEAD WITHOUT CONTRAST 02/04/2020 3:42 pm TECHNIQUE: CT of the head was performed without the administration of intravenous contrast. Dose modulation, iterative reconstruction, and/or weight based adjustment of the mA/kV was utilized to reduce the radiation dose to as low as reasonably achievable. COMPARISON: None. HISTORY: ORDERING SYSTEM PROVIDED HISTORY: 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) TECHNOLOGIST PROVIDED HISTORY: follow up on hemorrhagic transformation on previous ct FINDINGS: BRAIN/VENTRICLES: There is no acute intracranial hemorrhage, mass effect, or midline shift. There is continued evolution of a left posterior cerebral artery infarct. There is satisfactory overall chatman-white matter differentiation. The ventricular structures are symmetric and unremarkable. The infratentorial structures are unremarkable. ORBITS: The visualized portion of the orbits demonstrate no acute abnormality. SINUSES: The visualized paranasal sinuses and mastoid air cells demonstrate no acute abnormality. SOFT TISSUES/SKULL: No acute abnormality of the visualized skull or soft tissues. [place], [place], pn Incoming Radiant Results From [employer] - 02/04/2020 4:14 PM EDT EXAMINATION: CT OF THE HEAD WITHOUT CONTRAST 02/04/2020 3:42 pm TECHNIQUE: CT of the head was performed without the administration of intravenous contrast. Dose modulation, iterative reconstruction, and/or weight based adjustment of the mA/kV was utilized to reduce the radiation dose to as low as reasonably achievable. COMPARISON: None. HISTORY: ORDERING SYSTEM PROVIDED HISTORY: 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) TECHNOLOGIST PROVIDED HISTORY: follow up on hemorrhagic transformation on previous ct FINDINGS: BRAIN/VENTRICLES: There is no acute intracranial hemorrhage, mass effect, or midline shift. There is continued evolution of a left posterior cerebral artery infarct. There is satisfactory overall chatman-white matter differentiation. The ventricular structures are symmetric and unremarkable. The infratentorial structures are unremarkable. ORBITS: The visualized portion of the orbits demonstrate no acute abnormality. SINUSES: The visualized paranasal sinuses and mastoid air cells demonstrate no acute abnormality. SOFT TISSUES/SKULL: No acute abnormality of the visualized skull or soft tissues. 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 [place] EVENT MONITORon 01-07-[address] [address] EVENT MONITOR PATIENT NAME: NEIL WILCOX : 1945 MED REC NO: [id number] ROOM: 0544 ACCOUNT NO: [id number] ADMIT DATE: 12/21/2019 PROVIDER: Sabine Schrader EVENT MONITOR 331:[id number]-hours ORDERING PROVIDER: Rashard Graham PRIMARY CARE PROVIDER: Paul oConey INDICATION: Stroke COMMENTS: THIS IS THE FIRST REPORT OF THE EVENT MONITOR The patient appeared to remain in sinus rhythm throughout the recording with sinus bradycardia and sinus tachycardia noted. Rare PAC's with pairs were noted. Non-sustained PAT was noted with the longest lasting 5-beats in duration and the fastest peaking at 187 bpm. Rare PVC's with couplets were noted. The patient events were noted. IMPRESSION: 1. Sinus rhythm with sinus bradycardia and sinus tachycardia. 2. Rare PAC's with pairs. 3. Non-sustained PAT. 4. Rare PVC's with couplets. SABINE SCHRADER /PGAKIMBERLY Doc#: Unknown Normal [facility] CTA HEAD NECK W CONTRASTon 0 12-22-2019 CTA HEAD NECK W CONTRAST EXAMINATION: CTA OF THE HEAD AND NECK WITH CONTRAST 12/22/2019 1:18 pm TECHNIQUE: CTA of the head and neck was performed with the administration of intravenous contrast. Multiplanar reformatted images are provided for review. MIP images are provided for review. Stenosis of the internal carotid arteries measured using NASCET criteria. Dose modulation, iterative reconstruction, and/or weight based adjustment of the mA/kV was utilized to reduce the radiation dose to as low as reasonably achievable. COMPARISON: None. HISTORY: ORDERING SYSTEM PROVIDED HISTORY: stroke TECHNOLOGIST PROVIDED HISTORY: stroke Acuity: Unknown Type of Exam: Unknown Acute. Initial exam. Left occipital hypodensity seen on a CT at an outside hospital, concerning for an acute infarct. Neck pain. FINDINGS: CTA NECK: AORTIC ARCH/ARCH VESSELS: There is a normal branch pattern of the aortic arch. The innominate and subclavian arteries are normal in appearance. CAROTID ARTERIES: The common carotid and internal carotid arteries are normal in caliber without evidence of a flow-limiting stenosis. VERTEBRAL ARTERIES: There is minimal narrowing along the distal V4 segment of the right vertebral artery. The left vertebral artery is unremarkable. No dissection. SOFT TISSUES: Limited images through the lung apices are unremarkable. No superior mediastinal adenopathy. The thyroid, submandibular, and parotid glands are unremarkable. The parapharyngeal fat spaces are unremarkable. Calcifications are noted in the left palatine tonsil, likely related to sequela of remote infection. No pharyngeal or laryngeal mass. There is no cervical adenopathy. No appreciable soft tissue swelling. There is scattered paranasal sinus disease with greatest involvement in the left sphenoid sinus. There is a right maxillary mucous retention cyst. The mastoid air cells are clear. Degenerative changes are noted in the spine. No fracture. Streak artifact from dental amalgam is noted. CTA HEAD: ANTERIOR CIRCULATION: There is an azygos anterior cerebral artery. The internal carotid arteries are unremarkable. 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 The more superior one arises from the right A1 segment of the anterior cerebral artery. The left middle cerebral artery is unremarkable. POSTERIOR CIRCULATION: The basilar artery and posterior cerebral arteries are unremarkable. OTHER: No evidence of dural venous sinus thrombosis. BRAIN: No areas of abnormal enhancement or midline shift. IMPRESSION: There are areas of minimal narrowing noted along the V4 segment of the right vertebral artery. Otherwise unremarkable CTA of the head and neck. Interpreted by: Wilton Parekh MD Signed by: Wilton Parekh MD 12/22/19 Final result Normal [facility] Comp Metabolic Pr/rfx MGon 0 12-22-2019 AST [Catalytic activity/Vol] 21 U/L Normal <40 [facility] Comment on above: Performed By: #### C MPX, GLYHGB, LIPR, LACTIC, CDP #### [facility] [address] [place], [place] [id number] Timber Cruiser: Juan F Dominguez MD Drug Scr, Abuse, Uron 2019 Amphetamine(s),Ur Negative Normal NEG [facility] Comment on above: Result Comment: (Positive cutoff 1000 ng/mL) Performed By: #### D AU, UA, UMICAO #### [facility] [address] [place], [place] [id number] Timber Cruiser: Juan F Dominguez MD Barbiturate(s),Ur Positive Abnormal NEG [facility] Comment on above: Result Comment: (Positive cutoff 200 ng/mL) Performed By: #### Artem SCHULZ UA, UMICAO #### [facility] [address] [place] [address] Timber Cruiser: Juan F Dominguez MD Base excess Calc (Bld) [Moles/Vol] Negative Normal NEG [facility] Comment on above: Result Comment: (Positive cutoff 300 ng/mL) Performed By: #### Artem SCHULZ UA, UMICAO #### [facility] [address] [place] [address] Timber Cruiser: Juan F Dominguez MD Benzodiazepine(s) Negative Normal NEG [facility] Comment on above: Result Comment: (Positive cutoff 200 ng/mL) Performed By: #### ALEXIS MIRANDA, UMICAO #### [facility] [address] [address] Timber Cruiser: Juan F Dominguez MD Cannabinoid(s),Ur Negative Normal NEG [facility] Comment on above: Result Comment: (Positive cutoff 50 ng/mL) Performed By: #### ALEXIS MIRANDA, UMICAO #### [facility] [address] [place] [phone] Timber Cruiser: Juan F Dominguez MD Interpretive Info Assay provides medic al screening only. The absence of expected drug(s) and/or Normal [facility] Comment on above: Result Comment: meta bolite(s) may indicate diluted or adulterated urine, limitations of testing or timing of collection. Testing for legal purposes should be confirmed by another method. To request confirmation of test result, please call the lab within 7 days of sample submission. Performed By: #### Artem SCHULZ UA, UMICAO #### [facility] [address] [place] [address] Timber Cruiser: Juan F Dominguez MD Methadone Ql (U) Negative Normal NEG [facility] Comment on above: Result Comment: (Positive cutoff 300 ng/mL) Performed By: #### Artem SCHULZ UA, UMICAO #### [facility] [address] [place] [address] Timber Cruiser: Juan F Dominguez MD Opiate(s), Ur Negative Normal NEG [facility] Comment on above: Result Comment: (Positive cutoff 300 ng/mL) Performed By: #### D ZEUS UA, UMICAO #### [facility] [address] [place] [address] Timber Cruiser: Juan F Dominguez MD Oxycodone, Urine Negative Normal NEG [facility] Comment on above: Result Comment: (Positive cutoff 100 ng/mL) Performed By: #### Artem SCHULZ UA, UMICAO #### [facility] [address] [place] [address] Timber Cruiser: Juan F Dominguez MD Phencyclidine, Ur Negative Normal NEG [facility] Comment on above: Result Comment: (Positive cutoff 25 ng/mL) Performed By: #### D ZEUS UA, UMICAO #### [facility] [address] [place] [address] Tim[employer] Cruiser: Juan F Dominguez MD Hemoglobin A1Con 12-22-2019 HbA1c (Bld) [Mass fraction] 120 mg/dL Normal [facility] Comment on above: Result Comment: The ADA and AACC recommend providing the estimated average glucose result to permit better patient understanding of their HBA1c result. Performed By: #### D ZEUS UA, UMICAO #### [facility] [address] [place] [address] Timber Cruiser: Juan F Dominguez MD HbA1c (Bld) [Mass fraction] 5.8 % Normal 4.0-6.0 [facility] Comment on above: Performed By: #### D ZEUS UA, UMICAO #### [facility] [address] [place] [address] Timber Cruiser: Juan F Dominguez MD Lactic Acidon 12-22-2019 Lactate [Moles/Vol] 1.2 mmol/L Normal 0.7-2.1 [facility] Comment on above: Performed By: #### ALEXIS MIRANDA, UMICAO #### [facility] [address] [place] [address] Tim[employer] Cruiser: Juan F Dominguez MD Lipid Profileon 12-22-2019 Cholesterol [Mass/Vol] 137 mg/dL Normal <200 [facility] Comment on above: Result Comment: Cholesterol Guidelines: <200 Desirable 200-240 Borderline >240 Undesirable Performed By: #### ALEXIS MIRANDA, UMICAO #### [facility] [address] [place] [phone] Timber Cruiser: Juan F Dominguez MD Cholesterol in HDL [Mass/Vol] 53 mg/dL Normal >40 [facility] Comment on above: Result Comment: HDL Guidelines: <40 Undesirable 40-59 Borderline >59 Desirable Performed By: #### ALEXIS MIRANDA, UMICAO #### [facility] [address] [place] [address] Tim[employer] Cruiser: Juan F Dominguez MD Cholesterol in LDL [Mass/Vol] 73 mg/dL Normal 0-130 [facility] Comment on above: Result Comment: LDL Guidelines: <100 Desirable 100-129 Near to/above Desirable 130-159 Borderline >159 Undesirable Direct (measured) LDL and calculated LDL are not interchangeable tests. Performed By: #### ALEXIS MIRANDA, UMICAO #### [facility] [address] [place] [address] Timber Cruiser: Juan F Dominguez MD Cholesterol.total/Suzette sterol in HDL [Mass ratio] 2.6 {ratio} Normal <5 [facility] Comment on above: Performed By: #### ALEXIS MIRANDA, UMICAO #### [facility] [address] [place] [address] Timber Cruiser: Juan F Dominguez MD Triglyceride [Mass/Vol] 57 mg/dL Normal <[address] [facility] Comment on above: Result Comment: Triglyceride Guidelines: <150 Desirable 150-199 Borderline 200-499 High >499 Very high Based on AHA Guidelines for fasting triglyceride, June 2012. Performed By: #### Artem SCHULZ UA, UMICAO #### [facility] [address] [place] [address] Timber Cruiser: Juan F Dominguez MD Urinalysis, Routineon 2019 Acetoacetic Acid,Ur TRACE Abnormal NEG [facility] Comment on above: Performed By: #### Artem SCHULZ UA, UMICAO #### [facility] [address] [place] [address] Tim[employer] Cruiser: Juan F Dominguez MD Bilirubin, SemiQt,Ur Negative Normal NEG [facility] Comment on above: Performed By: #### Artem SCHULZ UA, UMICAO #### [facility] [address] [place] [address] Tim[employer] Cruiser: Juan F Dominguez MD Color (U) YELLOW Normal YEL [facility] Comment on above: Performed By: #### Artem SCHULZ UA, UMICAO #### [employer] [address] [place] [address] Tim[employer] Cruiser: Juan F Dominguez MD Glucose Ql (U) Negative Normal [facility] Comment on above: Performed By: #### Artem SCHULZ UA, UMICAO #### [facility] [address] [place] [address] Timber Cruiser: Juan F Dominguez MD Hemoglobin, Ur Negative Normal NEG [facility] Comment on above: Performed By: #### Artem SCHULZ UA, UMICAO #### [facility] [address] [place] [address] Timber Cruiser: Juan F Dominguez MD Leukocyte esterase Test strip Ql (U) Negative Normal NEG [facility] Comment on above: Performed By: #### Artem SCHULZ UA, UMICAO #### [address] [address] Tim[employer] Cruiser: Juan F Dominguez MD Nitrite,Ur Negative Normal NEG [facility] Comment on above: Performed By: #### Artem SCHULZ UA, UMICAO #### [address] [address] Timber Cruiser: Juan F Dominguez MD pH (U) 5.0 [pH] Normal 5.0-8.0 [facility] Comment on above: Performed By: #### Artem SCHULZ UA, UMICAO #### [address] [address] Tim[employer]iser: Juan F Dominguez MD Protein Ql (U) 1+ Abnormal NEG [facility] Comment on above: Performed By: #### Artem SCHULZ UA, UMICAO #### [address] [address] Tim[employer] Cruiser: Juan F Dominguez MD Specific gravity (U) [Rel density] 1.025 Normal 1.005-1.030 [facility] Comment on above: Performed By: #### Artem SCHULZ UA, UMICAO #### [address] [address] Timber Cruiser: Juan F Dominguez MD Turbidity CLEAR Normal CLEAR [facility] Comment on above: Performed By: #### Artem SCHULZ UA, UMICAO #### [address] [address] Tim[employer]iser: Juan F Dominguez MD Urobilinogen,Ur Normal Normal NORM [facility] Comment on above: Performed By: #### Artem SCHULZ UA, UMICAO #### [address] [address] Tim[employer] Cruiser: Juan F Dominguez MD Urinalysis,Microon 0 ----- Normal [facility] Comment on above: Performed By: #### Artem SCHULZ UA, UMICAO #### [facility] [address] [place] [address] Tim[employer] Cruiser: Juan F Dominguez MD Casts LM.LPF (Urine sed) [#/Area] 2 TO 5 HYALINE Normal 0-8 [facility] Comment on above: Result Comment: Refe rence range defined for non-centrifuged specimen. Performed By: #### Artem SCHULZ UA, UMICAO #### [facility] [address] [place] [phone] Tim[employer] Cruiser: Juan F Dominguez MD Epithelial cells LM.HPF (Urine sed) [#/Area] 0 TO 2 Normal 0-5 [facility] Comment on above: Performed By: #### Artem SCHULZ UA, UMICAO #### [facility] [address] [place] [phone] Tim[employer]iser: Juan F Dominguez MD RBC (U) [#/Vol] 0 TO 2 Normal 0-4 [facility] Comment on above: Result Comment: Refe rence range defined for non-centrifuged specimen. Performed By: #### Artem SCHULZ UA, UMICAO #### [facility] [address] [place] [address] Tim[employer]iser: Juan F Dominguez MD WBC (U) [#/Vol] 2 TO 5 Normal 0-5 [facility] Comment on above: Performed By: #### Artem SCHULZ UA, UMICAO #### [facility] [address] [place] [address] Tim[employer]iser: Juan F Dominguez MD CBC with Diffon 12-21-2019 Abs. Basophil <0.03 Normal 0.00-0.20 [facility] Comment on above: Performed By: #### C MPX, GLYHGB, LIPR, LACTIC, CDP #### [facility] [address] [place] [address] Tim[employer]iser: Juan F Dominguez MD Abs.Imm.Granulocyte <0.03 Normal 0.00-0.30 [facility] Comment on above: Performed By: #### C MPX, GLYHGB, LIPR, LACTIC, CDP #### [place] [address] Tim[employer] Cruiser: Juan F Dominguez MD Abs.Neutrophil (Seg) 2.41 k/uL Normal 1.50-8.10 [facility] Comment on above: Performed By: #### C MPX, GLYHGB, LIPR, LACTIC, CDP #### [place] [address] Tim[employer] Cruiser: Juan F Dominguez MD Basophils/100 WBC (Bld) 0 % Normal 0-2 [facility] Comment on above: Performed By: #### C MPX, GLYHGB, LIPR, LACTIC, CDP #### [place] [address] Tim[employer]iser: Juan F Dominguez MD Eosinophils (Bld) [#/Vol] 0.08 10*3/uL Normal 0.00-0.44 [facility] Comment on above: Performed By: #### C MPX, GLYHGB, LIPR, LACTIC, CDP #### [place] [address] Tim[employer]iser: Juan F Dominguez MD Eosinophils/100 WBC (Bld) 2 % Normal 1-4 [facility] Comment on above: Performed By: #### C MPX, GLYHGB, LIPR, LACTIC, CDP #### [place] [address] [employer]iser: Juan F Dominguez MD Erythrocyte distribution width (RBC) [Ratio] 11.9 % Normal 11.8-14.4 [facility] Comment on above: Performed By: #### C MPX, GLYHGB, LIPR, LACTIC, CDP #### [address] [address] Timber Cruiser: Juan F Dominguez MD Hematocrit (Bld) [Volume fraction] 38.8 % Low 40.7-50.3 [facility] Comment on above: Performed By: #### C MPX, GLYHGB, LIPR, LACTIC, CDP #### [address] [address] Timber Cruiser: Juan F Dominguez MD Hemoglobin (Bld) [Mass/Vol] 13.6 g/dL Normal 13.0-17.0 [facility] Comment on above: Performed By: #### C MPX, GLYHGB, LIPR, LACTIC, CDP #### [address] [address] Tim[employer] Cruiser: Juan F Dominguez MD Immature granulocytes (Bld) [#/Vol] 0 % Normal 0 [facility] Comment on above: Performed By: #### C MPX, GLYHGB, LIPR, LACTIC, CDP #### [address] [address] Timber Cruiser: Juan F Dominguez MD Lymphocytes (Bld) [#/Vol] 1.11 10*3/uL Normal 1.10-3.70 [facility] Comment on above: Performed By: #### C MPX, GLYHGB, LIPR, LACTIC, CDP #### [address] [address] Tim[employer] Cruiser: Juan F Dominguez MD Lymphocytes/100 WBC (Bld) 28 % Normal 24-43 [facility] Comment on above: Performed By: #### C MPX, GLYHGB, LIPR, LACTIC, CDP #### [address] [address] Timber Cruiser: Juan F Dominguez MD MCH (RBC) [Entitic mass] 35.8 pg High 25.2-33.5 [facility] Comment on above: Performed By: #### C MPX, GLYHGB, LIPR, LACTIC, CDP #### [address] [address] Tim[employer] Cruiser: Juan F Dominguez MD MCHC (RBC) [Mass/Vol] 35.1 g/dL High 28.4-34.8 [facility] Comment on above: Performed By: #### C MPX, GLYHGB, LIPR, LACTIC, CDP #### [address] [address] Tim[employer] Cruiser: Juan F Dominguez MD MCV (RBC) [Entitic vol] 102.1 fL Normal 82.6-102.9 [facility] Comment on above: Performed By: #### C MPX, GLYHGB, LIPR, LACTIC, CDP #### [address] [address] Timber Cruiser: Juan F Dominguez MD Monocytes (Bld) [#/Vol] 0.41 10*3/uL Normal 0.10-1.20 [facility] Comment on above: Performed By: #### C MPX, GLYHGB, LIPR, LACTIC, CDP #### [address] [address] Tim[employer] Cruiser: Juan F Dominguez MD Monocytes/100 WBC (Bld) 10 % Normal 3-[address] [facility] Comment on above: Performed By: #### C MPX, GLYHGB, LIPR, LACTIC, CDP #### [address] [address] Tim[employer] Cruiser: Juan F Dominguez MD Neutrophil (Seg) 60 % Normal 36-65 [facility] Comment on above: Performed By: #### C MPX, GLYHGB, LIPR, LACTIC, CDP #### [address] [address] Timber Cruiser: Juan F Dominguez MD NRBC Automated 0.0 per 100 WBC Normal 0.0 [facility] Comment on above: Performed By: #### C MPX, GLYHGB, LIPR, LACTIC, CDP #### [address] [address] Tim[employer] Cruiser: Juan F Dominguez MD Platelet mean volume (Bld) [Entitic vol] 8.2 fL Normal 8.1-13.5 [facility] Comment on above: Performed By: #### C MPX, GLYHGB, LIPR, LACTIC, CDP #### [address] [address] Tim[employer] Cruiser: Juan F Dominguez MD Platelets (Bld) [#/Vol] 200 10*3/uL Normal 138-453 [facility] Comment on above: Performed By: #### C MPX, GLYHGB, LIPR, LACTIC, CDP #### [address] [address] Tim[employer] Cruiser: Juan F Dominguez MD RBC (Bld) [#/Vol] 3.80 10*6/uL Low 4.21-5.77 [facility] Comment on above: Performed By: #### C MPX, GLYHGB, LIPR, LACTIC, CDP #### [address] [address] Tim[employer] Cruiser: Juan F Dominguez MD WBC (Bld) [#/Vol] 4.0 10*3/uL Normal 3.5-11.3 [facility] Comment on above: Performed By: #### C MPX, GLYHGB, LIPR, LACTIC, CDP #### [address] [address] Tim[employer] Cruiser: Juan F Dominguez MD Auto Diff Performed NOT REPORTED Normal [facility] Comment on above: Performed By: #### C MPX, GLYHGB, LIPR, LACTIC, CDP #### [address] [address] Tim[employer] Cruiser: Juan F Dominguez MD Platelets (Bld) [#/Vol] NOT REPORTED Normal [facility] Comment on above: Performed By: #### C MPX, GLYHGB, LIPR, LACTIC, CDP #### [address] [address] Timber Cruiser: Juan F Dominguez MD RBC morphology finding Nom (Bld) NOT REPORTED Normal [facility] Comment on above: Performed By: #### C MPX, GLYHGB, LIPR, LACTIC, CDP #### [facility] [address] [place] [address] Timber Cruiser: Juan F Dominguez MD WBC Morphology NOT REPORTED Normal [facility] Comment on above: Performed By: #### C MPX, GLYHGB, LIPR, LACTIC, CDP #### [facility] [address] [place] [address] Tim[employer] Cruiser: Juan F Dominguez MD Comp Metabolic Pr/rfx MGon 0 12-21-2019 (cont.) Normal [facility] Comment on above: Result Comment: Aver age GFR for 70 or more years old: 75 mL/min/1.73sq m Chronic Kidney Disease: <60 mL/min/1.73sq m Kidney failure: <15 mL/min/1.73sq m eGFR calculated using average adult body mass. Additional eGFR calculator available at: http://[email or web address]/multiple_crcl_2012.htm Performed By: #### C MPX, GLYHGB, LIPR, LACTIC, CDP #### [facility] [address] [place] [address] Tim[employer] Cruiser: Juan F Dominguez MD Albumin [Mass/Vol] 3.9 g/dL Normal 3.5-5.2 [facility] Comment on above: Performed By: #### C MPX, GLYHGB, LIPR, LACTIC, CDP #### [address] [address] Timber Cruiser: Juan F Dominguez MD Albumin/Globulin [Mass ratio] 1.2 {ratio} Normal 1.0-2.5 [facility] Comment on above: Performed By: #### C MPX, GLYHGB, LIPR, LACTIC, CDP #### [address] [address] Tim[employer] Cruiser: Juan F Dominguez MD Alkaline Phos 80 U/L Normal 40-129 [facility] Comment on above: Performed By: #### C MPX, GLYHGB, LIPR, LACTIC, CDP #### [address] [address] Tim[employer] Cruiser: Juan F Dominguez MD ALT [Catalytic activity/Vol] 22 U/L Normal 5-41 [facility] Comment on above: Performed By: #### C MPX, GLYHGB, LIPR, LACTIC, CDP #### [address] [address] Tim[employer] Cruiser: Juan F Dominguez MD Anion gap [Moles/Vol] 15 mmol/L Normal 9-17 [facility] Comment on above: Performed By: #### C MPX, GLYHGB, LIPR, LACTIC, CDP #### [address] [address] Tim[employer] Cruiser: Juan F Dominguez MD Bilirubin Ql (U) 0.74 mg/dL Normal 0.3-1.2 [facility] Comment on above: Performed By: #### C MPX, GLYHGB, LIPR, LACTIC, CDP #### [address] [address] Tim[employer] Cruiser: Juan F Dominguez MD Calcium [Mass/Vol] 9.5 mg/dL Normal 8.6-10.4 [facility] Comment on above: Performed By: #### C MPX, GLYHGB, LIPR, LACTIC, CDP #### [address] [address] Timber Cruiser: Juan F Dominguez MD Chloride [Moles/Vol] 99 mmol/L Normal 98-107 [facility] Comment on above: Performed By: #### C MPX, GLYHGB, LIPR, LACTIC, CDP #### [address] [address] Tim[employer] Cruiser: Juan F Dominguez MD CO2 [Moles/Vol] 20 mmol/L Normal 20-31 [facility] Comment on above: Performed By: #### C MPX, GLYHGB, LIPR, LACTIC, CDP #### [address] [address] Tim[employer]iser: Juan F Dominguez MD Creatinine [Mass/Vol] 0.77 mg/dL Normal 0.70-1.20 [facility] Comment on above: Performed By: #### C MPX, GLYHGB, LIPR, LACTIC, CDP #### [address] [address] Tim[employer]iser: Juan F Dominguez MD GFR, Amer >60 Normal >60 [facility] Comment on above: Performed By: #### C MPX, GLYHGB, LIPR, LACTIC, CDP #### [address] [address] Tim[employer] Cruiser: Juan F Dominguez MD GFR,non Amer >60 Normal >60 [facility] Comment on above: Performed By: #### C MPX, GLYHGB, LIPR, LACTIC, CDP #### [address] [address] Tim[employer]iser: Juan F Dominguez MD Glucose [Mass/Vol] 86 mg/dL Normal 70-99 [facility] Comment on above: Performed By: #### C MPX, GLYHGB, LIPR, LACTIC, CDP #### [address] [address] Tim[employer] Cruiser: Juan F Dominguez MD Potassium [Moles/Vol] 4.2 mmol/L Normal 3.7-5.3 [facility] Comment on above: Performed By: #### C MPX, GLYHGB, LIPR, LACTIC, CDP #### [address] [address] [employer]iser: Juan F Dominguez MD Protein [Mass/Vol] 7.2 g/dL Normal 6.4-8.3 [facility] Comment on above: Performed By: #### C MPX, GLYHGB, LIPR, LACTIC, CDP #### [address] [address] Tim[employer] Cruiser: Juan F Dominguez MD Sodium [Moles/Vol] 134 mmol/L Low 135-144 [facility] Comment on above: Performed By: #### C MPX, GLYHGB, LIPR, LACTIC, CDP #### [facility] [address] [place] [address] Tim[employer]iser: Juan F Dominguez MD Urea nitrogen [Mass/Vol] 16 mg/dL Normal 8-23 [facility] Comment on above: Performed By: #### C MPX, GLYHGB, LIPR, LACTIC, CDP #### [facility] [address] [place] [address] Tim[employer]iser: Juan F Dominguez MD BUN/CRE Ratio NOT REPORTED Normal 9-20 [facility] Comment on above: Performed By: #### C MPX, GLYHGB, LIPR, LACTIC, CDP #### [facility] [address] [place] [address] Tim[employer] Cruiser: Juan F Dominguez MD Staging: NOT REPORTED Normal [facility] Comment on above: Performed By: #### C MPX, GLYHGB, LIPR, LACTIC, CDP #### [facility] [address] [place] [address] Timber Cruiser: Juan F Dominguez MD Drug Scr, Abuse, Uron 2019 Buprenorphrine, Ur NOT REPORTED Normal NEG [facility] Comment on above: Performed By: #### D AU UA, UMICAO #### [facility] [address] [place] [address] Tim[employer] Cruiser: Juan F Dominguez MD MDMA, Urine NOT REPORTED Normal NEG [facility] Comment on above: Performed By: #### D AU, UA, UMICAO #### [facility] [address] [place] [address] Tim[employer] Cruiser: Juan F Dominguez MD Methamphetamine, Ur NOT REPORTED Normal NEG [facility] Comment on above: Performed By: #### D AU, UA, UMICAO #### [facility] [address] [place] [address] Timber Cruiser: Juan F Dominguez MD Propoxyphene,Urine NOT REPORTED Normal NEG [facility] Comment on above: Performed By: #### D AU, UA, UMICAO #### [facility] [address] [place] [address] Timber Cruiser: Juan F Dominguez MD Tricyclic antidepressants Screen Ql (U) NOT REPORTED Normal NEG [facility] Comment on above: Performed By: #### D AU, UA, UMICAO #### [facility] [address] [place] [address] Tim[employer]iser: Juan F Dominguez MD Lactic Acidon 12-21-2019 Lactate [Moles/Vol] NOT REPORTED Normal [facility] Comment on above: Performed By: #### D AU, UA, UMICAO #### [facility] [address] [place] [address] Tim[employer] Cruiser: Juan F Dominguez MD Lipid Profileon 12-21-2019 Cholesterol in VLDL [Mass/Vol] NOT REPORTED Normal 10-23 [facility] Comment on above: Performed By: #### D AU UA, UMICAO #### [facility] [address] [place] [address] Tim[employer] Cruiser: Juan F Dominguez MD Urinalysis, Routineon 2019 Comment NOT REPORTED Normal [facility] Comment on above: Performed By: #### D AU, UA, UMICAO #### [facility] [address] [place] [address] Tim[employer] Cruiser: Juan F Dominguez MD Urinalysis,Microon 0 Amorphous sediment LM Ql (Urine sed) NOT REPORTED Normal NONE [facility] Comment on above: Performed By: #### Artem SCHULZ UA, UMICAO #### [facility] [place] [address] Timber Cruiser: Juan F Dominguez MD Bacteria LM.HPF (Urine sed) [#/Area] NOT REPORTED Normal NONE [facility] Comment on above: Performed By: #### D AU, UA, UMICAO #### [facility] [address] [place] [address] Tim[employer] Cruiser: Juan F Dominguez MD Crystals LM Nom (Urine sed) NOT REPORTED Normal NONE [facility] Comment on above: Performed By: #### D AU, UA, UMICAO #### [facility] [address] [place] [address] Tim[employer] Cruiser: Juan F Dominguez MD Epithelial, Renal NOT REPORTED Normal 0 [facility] Comment on above: Performed By: #### D AU, UA, UMICAO #### [facility] [address] [place] [address] Tim[employer] Cruiser: Juan F Dominguez MD Mucus Strands NOT REPORTED Normal NONE [facility] Comment on above: Performed By: #### D AU, UA, UMICAO #### [facility] [address] [place], [place] [id number] Timber Cruiser: Juan F Dominguez MD Other Observations NOT REPORTED Normal NREQ [facility] Comment on above: Performed By: #### D AU, UA, UMICAO #### [facility] [address] [place], [place] [id number] Tim[employer] Cruiser: Juan F Dominguez MD Trichomonas NOT REPORTED Normal NONE [facility] Comment on above: Performed By: #### D AU, UA, UMICAO #### [facility] [address] [place] [address] Tim[employer] Cruiser: Juan F Dominguez MD Yeast LM Ql (Urine sed) NOT REPORTED Normal [facility] Comment on above: Performed By: #### D AU, UA, UMICAO #### [facility] [address] [place] [address] Timber Cruiser: Juan F Dominguez MD Vital Signs Date Time Vital Sign Value Performing Clinician Facility 12-03-2023 15:25-0400 Blood Pressure Location Trung FERGUSON [facility] 12-03-2023 15:25-0400 Diastolic blood pressure 74 mm[Hg] Trung FERGUSON [facility] 12-03-2023 15:25-0400 Heart rate 76 /min Trung FERGUSON [facility] 12-03-2023 15:25-0400 Respiratory rate 16 /min Trung FERGUSON [facility] 12-03-2023 15:25-0400 Systolic blood pressure 137 mm[Hg] Trung FERGUSON [facility] 10-22-2023 11:54-0500 Body height 175.3 cm Za Hernández MD Work Phone: [facility] 10-22-2023 11:54-0500 Body mass index (BMI) [Ratio] 27.17 kg/m2 Za Hernández MD Work Phone: [facility] 10-22-2023 11:54-0500 Body weight 83.46 kg Za Hernández MD Work Phone: [facility] 10-22-2023 11:54-0500 Diastolic blood pressure 72 mm[Hg] Za Hernández MD Work Phone: [facility] 10-22-2023 11:54-0500 Heart rate 56 /min Za Hernández MD Work Phone: [facility] 10-22-2023 11:54-0500 Systolic blood pressure 124 mm[Hg] Za Hernández MD Work Phone: [facility] 08-28-2023 12:20-0500 Diastolic blood pressure 78 mm[Hg] Ryan Cobb MD Work Phone: [facility] 08-28-2023 12:20-0500 Heart rate 60 /min Ryan Cobb MD Work Phone: [facility] 08-28-2023 12:20-0500 Respiratory rate 14 /min Ryan Cobb MD Work Phone: [facility] 08-28-2023 12:20-0500 SaO2% (BldA) [Mass fraction] 98 % Ryan Cobb MD Work Phone: [facility] 08-28-2023 12:20-0500 Systolic blood pressure 137 mm[Hg] Ryan Cobb MD Work Phone: [facility] 08-22-2023 08:48-0500 Body height 175.3 cm Ryan Cobb MD Work Phone: [facility] 08-22-2023 08:48-0500 Body mass index (BMI) [Ratio] 25.84 kg/m2 Ryan Cobb MD Work Phone: [facility] 08-22-2023 08:48-0500 Body temperature 96.01 [degF] Ryan Cobb MD Work Phone: [facility] 08-22-2023 08:48-0500 Body weight 79.38 kg Ryan Cobb MD Work Phone: [facility] 08-22-2023 08:48-0500 Diastolic blood pressure 79 mm[Hg] Ryan Cobb MD Work Phone: [facility] 08-22-2023 08:48-0500 Heart rate 60 /min Ryan Cobb MD Work Phone: [facility] 08-22-2023 08:48-0500 Respiratory rate 16 /min Ryan Cobb MD Work Phone: [facility] 08-22-2023 08:48-0500 SaO2% (BldA) [Mass fraction] 96 % Ryan Cobb MD Work Phone: [facility] 08-22-2023 08:48-0500 Systolic blood pressure 151 mm[Hg] Ryan Cobb MD Work Phone: [facility] 07-09-2023 11:04-0400 Diastolic blood pressure 78 mm[Hg] Trung FERGUSON [facility] 07-09-2023 11:04-0400 Heart rate 68 /min Trung FERGUSON [facility] 07-09-2023 11:04-0400 Respiratory rate 16 /min Trung FERGUSON [facility] 07-09-2023 11:04-0400 Systolic blood pressure 132 mm[Hg] Trung FERGUSON [facility] 06-11-2023 11:27-0400 Diastolic blood pressure 60 mm[Hg] Sam Cooney Work Phone: [facility] DO Work Phone: 06-11-2023 11:27-0400 Systolic blood pressure 118 mm[Hg] Sam Cooney Work Phone: [facility] DO Work Phone: 06-11-2023 10:51-0400 Body height 175.26 cm Sam Cooney Work Phone: [facility] DO Work Phone: 06-11-2023 10:51-0400 Body mass index (BMI) [Ratio] 26.29 kg/m2 Sam Cooney Work Phone: [facility] DO Work Phone: 06-11-2023 10:51-0400 Body surface area Derived from formula 1.97 m2 Sam Cooney Work Phone: [facility] DO Work Phone: 06-11-2023 10:51-0400 Body weight 80.74 kg Sam Cooney Work Phone: [facility] DO Work Phone: 06-11-2023 10:51-0400 Diastolic blood pressure 76 mm[Hg] Sam Cooney Work Phone: [facility] DO Work Phone: 06-11-2023 10:51-0400 Heart rate 66 /min Sam Cooney Work Phone: [facility] DO Work Phone: 06-11-2023 10:51-0400 Systolic blood pressure 128 mm[Hg] Sam Meneses Baxter Work Phone: [facility] DO Work Phone: 04-03-2023 09:05-0400 Blood Pressure Location CHARLOTTE RITESH [facility] 04-03-2023 09:05-0400 Diastolic blood pressure 56 mm[Hg] CHARLOTTE RITESH [facility] 04-03-2023 09:05-0400 Heart rate 58 /min [place] RITESH [facility] 04-03-2023 09:05-0400 Respiratory rate 16 /min [place] RITESH [facility] 04-03-2023 09:05-0400 Systolic blood pressure 96 mm[Hg] CHARLOTTE RITESH [facility] 02-26-2023 12:14-0400 Diastolic blood pressure 40 mm[Hg] Sam Meneses Baxter Work Phone: [facility] DO Work Phone: 02-26-2023 12:14-0400 Systolic blood pressure 82 mm[Hg] Sam Meneses Baxter Work Phone: [facility] DO Work Phone: 02-26-2023 12:14-0400 50 1 Sam Meneses Baxter Work Phone: [facility] DO Work Phone: Comment on above: [facility] 02-26-2023 11:37-0400 Body height 175.26 cm Sam Meneses Baxter Work Phone: [facility] DO Work Phone: 02-26-2023 11:37-0400 Body mass index (BMI) [Ratio] 25.93 kg/m2 Sam Meneses Baxter Work Phone: [facility] DO Work Phone: 02-26-2023 11:37-0400 Body surface area Derived from formula 1.95 m2 Sam Meneses Baxter Work Phone: [facility] DO Work Phone: 02-26-2023 11:37-0400 Body weight 79.65 kg Sam Meneses Baxter Work Phone: [facility] DO Work Phone: 02-26-2023 11:37-0400 Diastolic blood pressure 52 mm[Hg] Sam Meneses Baxter Work Phone: [facility] DO Work Phone: 02-26-2023 11:37-0400 Heart rate 56 /min Sam Meneses Baxter Work Phone: [facility] DO Work Phone: 02-26-2023 11:37-0400 Systolic blood pressure 98 mm[Hg] Sam Meneses Baxter Work Phone: [facility] DO Work Phone: 01-23-2023 14:12-0400 Blood Pressure Location CHARLOTTE BAKER [facility] 01-23-2023 14:12-0400 Diastolic blood pressure 76 mm[Hg] CHARL[place] RITESH [facility] 01-23-2023 14:12-0400 Heart rate 78 /min [place] RITESH [facility] 01-23-2023 14:12-0400 Respiratory rate 16 /min [facility] BAKER [facility] 01-23-2023 14:12-0400 Systolic blood pressure 130 mm[Hg] CHARL[place]TE BAKER [facility] 01-01-2023 11:45-0400 Blood Pressure Location Trung FERGUSON [facility] 01-01-2023 11:45-0400 Diastolic blood pressure 88 mm[Hg] Trung FERGUSON [facility] 01-01-2023 11:45-0400 Heart rate 67 /min Trung FERGUSON [facility] 01-01-2023 11:45-0400 Respiratory rate 16 /min Trung FERGUSON [facility] 01-01-2023 11:45-0400 Systolic blood pressure 135 mm[Hg] Trung FERGUSON [facility] 11-03-2022 13:02-0500 Blood Pressure Location Trung FERGUSON [facility] 11-03-2022 13:02-0500 Diastolic blood pressure 74 mm[Hg] Trung FERGUSON [facility] 11-03-2022 13:02-0500 Heart rate 68 /min Trung FERGUSON [facility] 11-03-2022 13:02-0500 Respiratory rate 16 /min Trung FERGUSON [facility] 11-03-2022 13:02-0500 Systolic blood pressure 128 mm[Hg] Trung FERGUSON [facility] 10-09-2022 13:22-0500 Diastolic blood pressure 74 mm[Hg] Sam Cooney Work Phone: [facility] DO Work Phone: 10-09-2022 13:22-0500 Systolic blood pressure 136 mm[Hg] Sam Cooney Work Phone: [facility] DO Work Phone: 10-09-2022 13:05-0500 Body height 175.26 cm Sam Cooney Work Phone: [facility] DO Work Phone: 10-09-2022 13:05-0500 Body mass index (BMI) [Ratio] 26.58 kg/m2 Sam Cooney Work Phone: [facility] DO Work Phone: 10-09-2022 13:05-0500 Body surface area Derived from formula 1.98 m2 Sam Cooney Work Phone: [facility] DO Work Phone: 10-09-2022 13:05-0500 Body weight 81.65 kg Sam Cooney Work Phone: [facility] DO Work Phone: 10-09-2022 13:05-0500 Diastolic blood pressure 72 mm[Hg] Sam Cooney Work Phone: [facility] DO Work Phone: 10-09-2022 13:05-0500 Heart rate 84 /min Sam Cooney Work Phone: [facility] DO Work Phone: 10-09-2022 13:05-0500 Systolic blood pressure 142 mm[Hg] Sam Meneses Baxter Work Phone: [facility] DO Work Phone: 10-02-2022 15:48-0500 Body height 175.26 cm Sam Cooney Work Phone: [facility] DO Work Phone: 10-02-2022 15:48-0500 Body mass index (BMI) [Ratio] 26.43 kg/m2 Sam Cooney Work Phone: [facility] DO Work Phone: 10-02-2022 15:48-0500 Body surface area Derived from formula 1.97 m2 Sam Cooney Work Phone: [facility] DO Work Phone: 10-02-2022 15:48-0500 Body weight 81.19 kg Sam Cooney Work Phone: [facility] DO Work Phone: 10-02-2022 15:48-0500 Diastolic blood pressure 82 mm[Hg] Sam Cooney Work Phone: [facility] DO Work Phone: 10-02-2022 15:48-0500 Heart rate 68 /min Sam Cooney Work Phone: [facility] DO Work Phone: 10-02-2022 15:48-0500 Systolic blood pressure 134 mm[Hg] Sam Meneses Baxter Work Phone: [facility] DO Work Phone: 10-02-2022 11:32-0500 Blood Pressure Location Trung FERGUSON [facility] 10-02-2022 11:32-0500 Diastolic blood pressure 75 mm[Hg] Trung FERGUSON [facility] 10-02-2022 11:32-0500 Heart rate 70 /min Trung FERGUSON [facility] 10-02-2022 11:32-0500 Respiratory rate 16 /min Trung FERGUSON [facility] 10-02-2022 11:32-0500 Systolic blood pressure 134 mm[Hg] Trung FERGUSON [facility] 09-11-2022 13:07-0500 Diastolic blood pressure 84 mm[Hg] Sam Meneses Baxter Work Phone: [facility] DO Work Phone: 09-11-2022 13:07-0500 Diastolic blood pressure 92 mm[Hg] Sam Meneses Baxter Work Phone: [facility] DO Work Phone: 09-11-2022 13:07-0500 Systolic blood pressure 144 mm[Hg] [place] E Baxter Work Phone: [facility] DO Work Phone: 09-11-2022 13:07-0500 Systolic blood pressure 148 mm[Hg] Sam E Baxter Work Phone: [facility] [facility] 250 DO Work Phone: 09-11-2022 13:00-0500 Body height 175.26 cm Sam Gideon Baxter Work Phone: [facility] 250 DO Work Phone: 09-11-2022 13:00-0500 Body mass index (BMI) [Ratio] 25.99 kg/m2 Sam Meneses Baxter Work Phone: [facility] 250 DO Work Phone: 09-11-2022 13:00-0500 Body surface area Derived from formula 1.96 m2 Sam Meneses Baxter Work Phone: [facility] 250 DO Work Phone: 09-11-2022 13:00-0500 Body weight 79.83 kg Sam Meneses Baxter Work Phone: [facility] 250 DO Work Phone: 09-11-2022 13:00-0500 Heart rate 62 /min Sam Meneses Baxter Work Phone: [facility] 250 DO Work Phone: 08-28-2022 13:16-0500 Body height 175.26 cm Sam Meneses Baxter Work Phone: [facility] 250 DO Work Phone: 08-28-2022 13:16-0500 Body mass index (BMI) [Ratio] 25.84 kg/m2 Sam Meneses Baxter Work Phone: [facility] 250 DO Work Phone: 08-28-2022 13:16-0500 Body surface area Derived from formula 1.95 m2 Sam Meneses Baxter Work Phone: [facility] 250 DO Work Phone: 08-28-2022 13:16-0500 Body weight 79.38 kg Sam Meneses Baxter Work Phone: [facility] 250 DO Work Phone: 08-28-2022 13:16-0500 Diastolic blood pressure 94 mm[Hg] Sam Meneses Baxter Work Phone: [facility] 250 DO Work Phone: 08-28-2022 13:16-0500 Heart rate 88 /min Sam Meneses Baxter Work Phone: [facility] 250 DO Work Phone: 08-28-2022 13:16-0500 Systolic blood pressure 152 mm[Hg] Sam Meneses Baxter Work Phone: [facility] 250 DO Work Phone: 06-15-2022 10:12-0400 Body height 175.26 cm Sam Meneses Baxter Work Phone: [facility] 250 DO Work Phone: 06-15-2022 10:12-0400 Body mass index (BMI) [Ratio] 24.81 kg/m2 Sam Meneses Baxter Work Phone: [facility] 250 DO Work Phone: 06-15-2022 10:12-0400 Body surface area Derived from formula 1.92 m2 Sam Meneses Baxter Work Phone: [facility] 250 DO Work Phone: 06-15-2022 10:12-0400 Body weight 76.2 kg Sam Meneses Baxter Work Phone: [facility] 250 DO Work Phone: 06-15-2022 10:12-0400 Diastolic blood pressure 82 mm[Hg] Sam Meneses Baxter Work Phone: [facility] 250 DO Work Phone: 06-15-2022 10:12-0400 Heart rate 64 /min Sam Meneses Baxter Work Phone: [facility] 250 DO Work Phone: 06-15-2022 10:12-0400 Systolic blood pressure 160 mm[Hg] Lumpkin E Baxter Work Phone: [facility] 250 DO Work Phone: 06-15-2022 10:12-0400 4 1 Sam Cooney Work Phone: [facility] 250 DO Work Phone: Comment on above: PHQ-9 TS 04-24-2022 11:18-0400 Blood Pressure Location Trung FERGUSON [facility] 04-24-2022 11:18-0400 Diastolic blood pressure 86 mm[Hg] Trung FERGUSON [facility] 04-24-2022 11:18-0400 Heart rate 74 /min Trung FERGUSON [facility] 04-24-2022 11:18-0400 Respiratory rate 16 /min Trung FERGUSON [facility] 04-24-2022 11:18-0400 Systolic blood pressure 134 mm[Hg] Trung FERGUSON [facility] 01-23-2022 12:57-0400 Blood Pressure Location Trung FERGUSON [facility] 01-23-2022 12:57-0400 Diastolic blood pressure 87 mm[Hg] Trung FERGUSON [facility] 01-23-2022 12:57-0400 Heart rate 70 /min Trung FERGUSON [facility] 01-23-2022 12:57-0400 Respiratory rate 16 /min Trung FERGUSON [facility] 01-23-2022 12:57-0400 Systolic blood pressure 139 mm[Hg] Trung FERGUSON [facility] 08-31-2021 13:24-0500 Body height 175.26 cm Sam Cooney Work Phone: [facility] 250 DO Work Phone: 08-31-2021 13:24-0500 Body mass index (BMI) [Ratio] 27.02 kg/m2 Sam Cooney Work Phone: [facility] 250 DO Work Phone: 08-31-2021 13:24-0500 Body surface area Derived from formula 1.99 m2 Sam Cooney Work Phone: [facility] 250 DO Work Phone: 08-31-2021 13:24-0500 Body weight 83.01 kg Sam Cooney Work Phone: [facility] 250 DO Work Phone: 08-31-2021 13:24-0500 Diastolic blood pressure 88 mm[Hg] Sam Cooney Work Phone: [facility] 250 DO Work Phone: 08-31-2021 13:24-0500 Heart rate 74 /min Sam Cooney Work Phone: [facility] 250 DO Work Phone: 08-31-2021 13:24-0500 Systolic blood pressure 142 mm[Hg] Sam Cooney Work Phone: [facility] 250 DO Work Phone: 08-03-2021 09:57-0500 Body height 175.26 cm Sam Cooney Work Phone: [facility] 250 DO Work Phone: 08-03-2021 09:57-0500 Body mass index (BMI) [Ratio] 26.29 kg/m2 Sam Meneses Baxter Work Phone: [facility] 250 DO Work Phone: 08-03-2021 09:57-0500 Body surface area Derived from formula 1.97 m2 Sam Cooney Work Phone: [facility] 250 DO Work Phone: 08-03-2021 09:57-0500 Body weight 80.74 kg Sam Cooney Work Phone: [facility] 250 DO Work Phone: 08-03-2021 09:57-0500 Diastolic blood pressure 90 mm[Hg] Sam Cooney Work Phone: [facility] 250 DO Work Phone: 08-03-2021 09:57-0500 Heart rate 66 /min Sam Cooney Work Phone: [facility] 250 DO Work Phone: 08-03-2021 09:57-0500 Systolic blood pressure 170 mm[Hg] Sam Meneses Baxter Work Phone: [facility] 250 DO Work Phone: Encounters Encounter Date Encounter Type Care Provider Facility Start: 06-16-2024 ambulatory Trung Santizo ty:[facility] Start: 01-15-2024 End: 01-15-2024 ambulatory ROXANNE GIVENS [facility] Start: 12-28-2023 ambulatory SAM Meneses EROS [facility] Start: 12-28-2023 End: 12-29-2023 ambulatory RYAN Ocampo [facility] Start: 12-28-2023 End: 12-28-2023 Subsequent hospital visit by physician Fatemeh [id number] [facility] Comment on above: Atrial fibrillation, unspecified type (CMS/HCC) Start: 12-03-2023 End: 12-04-2023 ambulatory Trung FERGUSON Facility:[facility] Start: 12-03-2023 End: 12-03-2023 Patient encounter procedure Trung FERGUSON [facility] Start: 11-20-2023 ambulatory GUNNAR Leonard cility:[id number] Start: 11-07-2023 End: 11-07-2023 ambulatory CAMILA ZEPEDA MD Facility:[id number] Start: 11-06-2023 Chart abstracting Kylee Arreguin DPM Work Phone: [facility] Start: 10-22-2023 End: 10-22-2023 ambulatory [facility] Start: 10-22-2023 End: 10-22-2023 Encounter for preprocedural cardiovascular examination [facility] Start: 10-22-2023 End: 10-22-2023 Office outpatient visit 25 minutes Za Hernández MD Work Phone: [facility] Comment on above: Unspecified mood (af fective) disorder (CMS/HCC) (Primary Dx); Paroxysmal atrial fibrillation (CMS/HCC); Former smoker; Encounter for pre-operative cardiovascular clearance; Presence of Watchman left atrial appendage closure device; Paroxysmal atrial fibrillation with RVR (CMS/HCC); Mixed hyperlipidemia; Primary hypertension; Pain in joint of left shoulder Start: 10-22-2023 End: 10-22-2023 Patient encounter status Za Hernández MD Work Phone: [facility] Work Phone: Start: 09-10-2023 End: 09-10-2023 ambulatory Za Edgar Facility:[facility] Start: 09-10-2023 End: 09-10-2023 ambulatory DO Sam Cooney Work Phone: [facility] Work Phone: Start: 09-10-2023 End: 09-10-2023 Patient encounter procedure DO Sam Cooney Work Phone: [facility] Start: 08-28-2023 End: 08-28-2023 Subsequent hospital visit by physician Ryan Cobb MD Work Phone: [facility] Comment on above: Atrial fibrillation (CMS/HCC) (Primary Dx); Chronic atrial fibrillation, unspecified (CMS/HCC); Presence of Watchman left atrial appendage closure device Start: 08-24-2023 Evaluation and manag ement of inpatient [facility] Start: 08-22-2023 End: 08-23-2023 ambulatory SAM HARRINGTON [facility] Start: 08-22-2023 End: 08-22-2023 ambulatory [facility] Start: 08-22-2023 End: 08-22-2023 Office outpatient new 45 minutes Ryan Cobb MD Work Phone: [facility] Comment on above: Paroxysmal atrial fi brillation (CMS/HCC) (Primary Dx) Start: 08-13-2023 End: 08-13-2023 ambulatory KYLEE ARREGUIN Not Available Start: 08-09-2023 End: 08-09-2023 ambulatory Za Hernández Facility:[facility] Start: 08-09-2023 End: 08-09-2023 ambulatory DO Sam Cooney Work Phone: [facility] Work Phone: Start: 08-09-2023 End: 08-09-2023 Patient encounter procedure DO Sam Cooney Work Phone: [facility] Start: 07-31-2023 End: 08-01-2023 ambulatory PURNIMA DAVIDSON JR Facility:[facility] Start: 07-31-2023 Encounter for other preprocedural examination PURNIMA STUART BUSTAMANTE [facility] Start: 07-31-2023 End: 08-01-2023 ambulatory SHERLEY GIFFORDTanner Not Available Start: 07-09-2023 End: 07-10-2023 ambulatory Za Edgar Facility:[facility] Start: 07-09-2023 End: 07-09-2023 Patient encounter procedure Trung FERGUSON [facility] Start: 06-11-2023 Office outpatient vi sit 25 minutes Sam Cooney Work Phone: [facility] 250 DO Work Phone: Start: 06-11-2023 ambulatory ZA HERNÁNDEZ Facility:[id number] Start: 06-07-2023 End: 06-07-[address] Sam Cooney Facility:[id number] Start: 06-07-2023 End: 06-07-2023 ambulatory DO Sam Cooney Work Phone: [facility] Work Phone: Start: 06-07-2023 End: 06-07-2023 Patient encounter procedure DO Sam Cooney Work Phone: [facility] Start: 05-08-[address] Sam Cooney Facility:[id number] Start: 05-07-2023 End: 05-07-2023 ambulatory Za Hernández Facility:[facility] Start: 05-07-2023 End: 05-07-2023 ambulatory DO Sam Cooney Work Phone: [facility] Work Phone: Start: 05-07-2023 End: 05-07-2023 Patient encounter procedure DO Sam Baxter Work Phone: [facility] Start: 04-03-2023 End: 04-04-2023 ambulatory CHARLOTTE Meneses RITESH Facility:[facility] Start: 04-03-2023 End: 04-03-2023 Patient encounter procedure CHARLOTTE BAKER [facility] Start: 02-26-2023 ambulatory Ms. Loulou Arreguin Facility: Start: 02-26-2023 Office outpatient vi sit 25 minutes Sam Gideon Baxter Work Phone: [facility] 250 DO Work Phone: Start: 02-26-2023 Patient encounter procedure Sam Meneses Baxter Work Phone: [facility] 250 DO Work Phone: Start: 01-23-2023 End: 01-24-2023 ambulatory DO Sam Baxter Work Phone: [facility] Work Phone: Start: 01-23-2023 End: 01-23-2023 Patient encounter procedure CHARLOTTE BAKER [facility] Start: 01-22-2023 End: 01-22-2023 Patient encounter procedure DO Sam Baxter Work Phone: [facility] Start: 01-22-2023 End: 01-22-2023 ambulatory DO Sam Baxter Work Phone: [facility] Work Phone: Start: 01-01-2023 End: 01-02-2023 ambulatory Trung FERGUSON Facility:[facility] Start: 01-01-2023 End: 01-01-2023 Patient encounter procedure Trung FERGUSON [facility] [place] Start: 12-08-2022 End: 12-08-[address] Sam Cooney Facility:[id number] Start: 12-08-2022 End: 12-08-2022 ambulatory DO Sam Cooney Work Phone: [facility] Work Phone: Start: 12-08-2022 End: 12-08-2022 Patient encounter procedure DO Sam Eros Work Phone: [facility] Start: 11-17-2022 Patient encounter procedure Sam Cooney Work Phone: -[facility] 250 DO Work Phone: Start: 11-06-2022 End: 11-06-2022 Patient encounter procedure Trung FERGUSON [facility] Start: 11-03-2022 End: 01-10-[address] SAM COONEY Facility:H1 Start: 11-03-2022 End: 11-03-2022 Patient encounter procedure Trung FERGUSON [facility] Start: 10-17-2022 End: 10-17-2022 Lab Drop off CHARLOTTE BAKER [facility] Start: 10-17-2022 End: 10-17-2022 Patient encounter procedure CHARLOTTE BAKER [facility] Start: 10-09-2022 ambulatory Ms. Jasso Emy Arreguin Facility: Start: 10-09-2022 FUV, Provider: Loulou Myles, Status: Pen, Time: 12:30 PM Lumpkin E Baxter Work Phone: [facility] 250 DO Work Phone: Start: 10-09-2022 Office outpatient vi sit 15 minutes Lumpkin E Baxter Work Phone: [facility] 250 DO Work Phone: Start: 10-09-2022 Patient encounter procedure Lumpkin E Baxter Work Phone: [facility] 250 DO Work Phone: Start: 10-02-2022 ambulatory ZA HERNÁNDEZ Facility:[id number] Start: 10-02-2022 Office outpatient vi sit 25 minutes Sam E Baxter Work Phone: [facility] 250 DO Work Phone: Start: 10-02-2022 End: 10-02-2022 Patient encounter procedure Trung FERGUSON [facility] Start: 09-19-2022 Rx Renewal Sam Meneses Brist ol Work Phone: [facility] 250 DO Work Phone: Start: 09-11-2022 Office outpatient vi sit 10 minutes Lumpkin E Baxter Work Phone: [facility] 250 DO Work Phone: Start: 09-11-2022 ambulatory ZA HERNÁNDEZ Facility:[id number] Start: 09-04-2022 End: 09-04-2022 Patient encounter procedure Trung FERGUSON [facility] Start: 09-02-2022 Encounter for preprocedural laboratory examination DR TRUNG FERGUSON . [facility] Start: 08-31-2022 End: 09-01-[address] TRUNG FERGUSON . Facility:[facility]1 Start: 08-29-2022 End: 08-30-[address] TRUNG FERGUSON . Facility:[facility] Start: 08-29-2022 End: 08-30-2022 Encounter for preprocedural laboratory examination DR TRUNG FERGUSON . Facility:[facility]1 Start: 08-28-2022 Office outpatient vi sit 25 minutes Sam Cooney Work Phone: [facility] 250 DO Work Phone: Start: 08-25-2022 End: 08-26-[address] SAM COONEY Facility:[facility] Start: 08-22-2022 End: 08-23-[address] RTUNG FERGUSON . Facility:[facility] Start: 08-14-2022 Telephone encounter Sam cerna Work Phone: [facility] 250 DO Work Phone: Start: 07-20-[address] TRUNG FERGUSON . Fac ility:H1 Start: 07-14-2022 End: 07-15-[address] TRUNG FERGUSON . Facility:[facility]1 Start: 06-30-2022 Encounter for preprocedural cardiovascular examination DR TRUNG FERGUSON . [facility] Start: 06-30-2022 Encounter for preprocedural laboratory examination DR TRUNG FERGUSON . [facility] Start: 06-30-2022 End: 07-01-[address] TRUNG FERGUSON . Facility:[facility]1 Start: 06-28-2022 End: 06-29-[address] TRUNG FERGUSON . Facility:[facility]1 Start: 06-28-2022 End: 06-29-2022 Encounter for preprocedural cardiovascular examination DR TRUNG FERGUSON . Facility:[facility]1 Start: 06-15-2022 Office outpatient vi sit 15 minutes Sam Cooney Work Phone: [facility] 250 DO Work Phone: Start: 06-15-2022 Patient encounter procedure Sam Cooney Work Phone: [facility] 250 DO Work Phone: Start: 04-24-2022 End: 05-10-2022 Pre-admission assessment Trung FERGUSON [facility] Start: 04-24-2022 End: 04-24-2022 Patient encounter procedure Trung R MARTY [facility] Start: 04-12-2022 Telephone encounter Sam cerna Work Phone: [facility] 250 DO Work Phone: Start: 04-08-2022 End: 04-08-[address] CONCHITA ARREGUIN Facility:[facility]1 Start: 02-17-2022 End: 04-05-[address] SAM COONEY Facility:[facility]1 Start: 01-23-2022 End: 01-23-2022 Patient encounter procedure Trung FERGUSON [facility] Start: 08-31-2021 Office outpatient vi sit 15 minutes Sam Cooney Work Phone: [facility] 250 DO Work Phone: Start: 02-07-2021 End: 02-07-2021 Patient encounter procedure Sam Cooney Work Phone: [facility] Start: 01-07-2021 End: 01-07-2021 Patient encounter procedure Sam Cooney Work Phone: -[facility] Start: 10-13-2020 End: 10-14-2020 Patient encounter procedure ISRAR UL SANTOS [facility] Start: 10-13-2020 End: 10-13-2020 Subsequent hospital visit by physician Sam Cooney [facility] Start: 10-08-2020 End: 10-08-2020 Patient encounter procedure Sam Cooney -[facility] Start: 2020 End: 2020 Patient encounter procedure Sam Cooney -[facility] [place] Start: 09-15-2020 End: 09-15-2020 Patient encounter procedure Sam Cooney -CT [address] Start: 07-07-2020 End: 07-07-2020 Patient encounter procedure Sam Cooney -[facility] Check Start: 02-04-2020 End: 02-07-2020 Patient encounter procedure ISRAR UL SANTOS [facility] Start: 02-04-2020 End: 02-06-2020 Subsequent hospital visit by physician Landy Ct Rm [facility] CT Scan Comment on above: 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) Start: 12-21-2019 End: 12-22-2019 Evaluation and management of inpatient LESTER GAO [facility] Procedures Date Procedure Procedure Detail Performing Clinician Start: 12-28-2023 CT WATCHMAN FULL CONTRAST RYAN COBB Start: 12-28-2023 Ct heart contrast ev al cardiac structure&morph Ryan Cobb MD Work Phone: Start: 10-22-2023 Lipid panel ZA VARGAS Start: 10-22-2023 Comprehensive metabo lic 2000 panel - Serum or Plasma ZA HERNÁNDEZ Start: 08-28-2023 Echo transthorc r-t 2d w/wo m-mode rec f-up/lmtd Lucas Pearce MATHEMATICS PROFESSOR-BUTTON MAKER AND INSTALLER Work Phone: Start: 08-28-2023 Ecg routine ecg w/le ast 12 lds trcg only w/o i&r Lucas Pearce MATHEMATICS PROFESSOR-BUTTON MAKER AND INSTALLER Work Phone: Start: 08-22-2023 Creatinine [Mass/vol ume] in Serum or Plasma SAM COONEY Start: 08-22-2023 ELECTROPHYSIOLOGY PROCEDURE SAM COONEY Start: 07-31-2023 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 Za Hernández MD Work Phone: Start: 07-31-2023 Thyrotropin [Units/v olume] in Serum or Plasma Ryan Cobb MD Work Phone: Start: 11-03-2022 Dilation of urethra JUNAID BAKER Start: 08-31-2022 Transurethral prostatectomy Trung MARTY Start: 01-24-2022 Cystoscopy Trung SALVATORE MAYSerina Start: 10-13-2020 Assay of free thyroxine Israr Ul Santos Work Phone: Start: 10-13-2020 Assay of thyroid stimulating hormone tsh Israr Ul Santos Work Phone: Start: 10-13-2020 VITAMIN B12 & FOLATE Is rar Ul Santos Work Phone: Start: 09-15-2020 CT head/brain wo con Re agan Baxter Start: 02-04-2020 Ct head/brain w/o co ntrast material LESTER CHIRRI Start: 02-04-2020 Ct head/brain w/o co ntrast material Israr Ul Santos Work Phone: Start: 12-22-2019 DISCHARGE PATIENT LESTER CHIRRI Start: 12-22-2019 Xtrnl pt activated e cg record monitor 30 days LESTER CHIRRI Start: 12-22-2019 Ct angiography head w/contrast/noncontrast LESTER CHIRRI Start: 12-22-2019 DIET GENERAL LESTER CHIR RI Start: 12-22-2019 Echo tthrc r-t 2d w/wom-mode compl spec&colr d LESTER CHIRRI Start: 12-22-2019 Echo tthrc r-t 2d w/wom-mode compl spec&colr d LESTER CHIRRI Start: 12-22-2019 INITIATE OXYGEN THER APY PROTOCOL LESTER CHIRRI Start: 12-22-2019 IP CONSULT TO CARDIOLOGY LESTER CHIRRI Start: 12-22-2019 MISCELLANEOUS NURSIN G CARE ORDER (SPECIFY) LESTER CHIRRI Start: 12-22-2019 OT EVAL AND TREAT LESTER CHIRRI Start: 12-22-2019 PT EVAL AND TREAT LESTER CHIRRI Start: 12-22-2019 RAMP AGENT EVAL AND TREAT GRAYSON L CHIRRI Start: 12-21-2019 Assay of lactate LESTER CHIRRI Start: 12-21-2019 Blood count complete auto&auto difrntl wbc LESTER CHIRRI Start: 12-21-2019 Hemoglobin glycosylated a1c LESTER CHIRRI Start: 12-21-2019 Lipid panel LESTER CHIR RI Start: 12-21-2019 ADVANCE DIET TOLE RATED (NURSING COMMUNICATION) LESTER CHIRRI Start: 12-21-2019 FULL CODE LESTER CHIR RI Start: 12-21-2019 INITIATE OXYGEN THER APY PROTOCOL LESTER CHIRRI Start: 12-21-2019 NEURO CHECKS LESTER CHIR RI Start: 12-21-2019 NURSING SWALLOW ASSESSMENT LESTER CHIRRI Start: 12-21-2019 REASON FOR NO MECHAN ICAL VTE PROPHYLAXIS LESTER CHIRRI Start: 12-21-2019 TOBACCO CESSATION EDUCATION LESTER CHIRRI Start: 12-21-2019 VITAL SIGNS LESTER CHIR RI Start: 12-21-2019 PATIENT STATUS (DIRECT) LESTER CHIRRI Start: 12-21-2019 Drug screen class list a LESTER CHIRRI Start: 12-21-2019 Urinalysis microscopic only LESTER CHIRRI Start: 12-21-2019 Urnls dip stick/tabl et rgnt auto w/o microscopy LESTER CHIRRI Start: 09-24-2018 Total colonoscopy James Cooney Work Phone: Colonoscopy Trung FERGUSON Implantation of inse rtable loop recorder Sam Cooney Work Phone: Prosthetic arthropla sty of shoulder Trung FERGUSON Repair of musculoten dinous cuff of shoulder Sam Cooney Work Phone: Repair of shoulder Sam Cooney Work Phone: Comment on above: 2 seperate surgeries ; Tonsillectomy and adenoidectomy Sam Cooney Work Phone: Plan of Treatment Date Care Activity Detail Author Start: 05-20-2033 DTaP/Tdap/Td Vaccine s (2 - Td or Tdap) DTaP/Tdap/Td Vaccines (2 - Td or Tdap) [facility] Start: 10-13-2024 End: 10-13-2024 Patient encounter procedure 10/13/2024 10:30 AM EST Office Visit [facility] [address] [facility] [address] [place] [address] Za Hernández MD [address] [facility] [address] [place] [address] [facility] Start: 07-31-2024 Thyroid stimulating hormone measurement TSH Level [facility] Start: 04-21-2024 End: 04-21-2024 Patient encounter procedure 04/21/2024 10:30 AM EDT Office Visit [facility] [address] [place] [id number] Loulou Arreguin, MATHEMATICS PROFESSOR-BUTTON MAKER AND INSTALLER [address] [place] [address] [facility] Start: 11-20-2023 End: 11-20-2023 Patient encounter procedure 11/20/2023 7:00 AM EST Procedure Visit [facility] Gunnar Shaffer, [address] [place] [address] [facility] Start: 11-06-2023 End: 11-06-2023 Patient encounter procedure 11/06/2023 11:30 AM EST Procedure Visit [facility] [address] [place] [id number] Kylee Arreguin DPM [address] [place] [address] [facility] Start: 10-22-2023 End: 10-22-2024 Comprehensive metabolic 2000 panel - Serum or Plasma Comprehensive Metabolic Panel Lab Routine Paroxysmal atrial fibrillation (CMS/HCC) Expected: 10/22/2023 (Approximate), Expires: 10/22/2024 [facility] Service Area Work Phone: Comment on above: Expected: 10/22/2023 (Approximate), Expires: 10/22/2024 Start: 10-22-2023 End: 10-22-2024 Lipid 1996 panel - Serum or Plasma Lipid Panel Lab Routine Paroxysmal atrial fibrillation (CMS/HCC) Unspecified mood (affective) disorder (CMS/HCC) Former smoker Encounter for pre-operative cardiovascular clearance Mixed hyperlipidemia Expected: 10/22/2023 (Approximate), Expires: 10/22/2024 [facility] Work Phone: Comment on above: Expected: 10/22/2023 (Approximate), Expires: 10/22/2024 Start: 09-20-2023 End: 09-20-2023 Patient encounter procedure 09/20/2023 10:30 AM EST Office Visit [address] [place] [id number] Za Hernández MD [address] [place] [address] [address] [place] [address] [facility] Start: 08-28-2023 End: 08-28-2023 Admission to same day surgery center 08/28/2023 11:30 AM EST - 08/28/2023 1:30 PM EST Surgery [facility] [address] [phone] [place] [address] [place] [address] Left Atrial Appendage Closure [35806 (CPT )] [facility] Comment on above: Left Atrial Appendag e Closure [45892 (CPT )] Start: 08-28-2023 Subsequent hospital visit by physician 08/28/2023 11:30 AM EST Hospital Encounter [facility] [address] [phone] [place] [address] [place] [address] Atrial fibrillation (CMS/HCC) [facility] Comment on above: Atrial fibrillation (CMS/HCC) Start: 08-27-2023 End: 08-27-2023 Patient encounter procedure 08/27/2023 9:30 AM EST Office Visit [address] [place] [address] Za Hernández MD [address] [facility] [address] [place], [place] [phone] [facility] Start: 06-11-2023 FUV, Provider: Za Hernández, Status: Pen, Time: 10:45 AM FUV, Provider: Za Hernández, Status: Pen, Time: 10:45 AM -[facility] 250 DO Work Phone: Start: 05-25-2023 COVID-19 Vaccine ( season) COVID-19 Vaccine ( season) [facility] Start: 05-25-2023 Influenza vaccination Influenza Vacc ine (#1) [facility] Start: 02-26-2023 FUV, Provider: Za Hernández, Status: Pen, Time: 11:15 AM FUV, Provider: Za Hernández, Status: Pen, Time: 11:15 AM -[facility] 250 DO Work Phone: Start: 10-09-2022 FUV, Provider: Loulou Myles, Status: Pen, Time: 12:30 PM FUV, Provider: Loulou Myles, Status: Pen, Time: 12:30 PM -[facility] 250 DO Work Phone: Start: 10-02-2022 FUV, Provider: Za Hernández, Status: Pen, Time: 3:15 PM FUV, Provider: Za Hernández, Status: Pen, Time: 3:15 PM [facility] 250 DO Work Phone: Start: 09-21-2022 FUV, Provider: Za Hernández, Status: Pen, Time: 9:45 AM FUV, Provider: Za Hernández, Status: Pen, Time: 9:45 AM -[facility] 250 DO Work Phone: Start: 09-11-2022 NURSEVST, Provider: JACQUELINE GONZALEZ TRIM MOUNTER 1,[id number], Status: Pen, Time: 1:00 PM NURSEVST, Provider: JACQUELINE GONZALEZ TRIM MOUNTER 1,[id number], Status: Pen, Time: 1:00 PM [facility] 250 DO Work Phone: Start: 08-28-2022 FUV, Provider: Za Hernández, Status: Pen, Time: 12:45 PM FUV, Provider: Za Hernández, Status: Pen, Time: 12:45 PM [facility] 250 DO Work Phone: Start: 08-10-2022 BPCHECK, Provider: Bri GONZALEZ TRIM MOUNTER 1,[id number], Status: Pen, Time: 10:00 AM BPCHECK, Provider: JACQUELINE GONZALEZ TRIM MOUNTER 1,[id number], Status: Pen, Time: 10:00 AM [facility] 250 DO Work Phone: Start: 08-01-2022 FUV, Provider: Erick Wise, Status: Pen, Time: 9:00 AM FUV, Provider: Erick Wise, Status: Pen, Time: 9:00 AM [facility] 250 DO Work Phone: Start: 06-15-2022 FUV, Provider: Za Hernández, Status: Pen, Time: 9:45 AM FUV, Provider: Za Hernández, Status: Pen, Time: 9:45 AM [facility] 250 DO Work Phone: Start: 10-03-2021 FUV, Provider: Loulou Myles, Status: Pen, Time: 10:00 AM FUV, Provider: Loulou Myles, Status: Pen, Time: 10:00 AM [facility] 250 DO Work Phone: Start: 10-03-2021 STRESS NUC, Provider : KAYODE VAZ NUCLEAR 01,[id number], Status: Pen, Time: 8:00 AM STRESS NUC, Provider: KAYODE VAZI NUCLEAR 01,[id number], Status: Pen, Time: 8:00 AM -[facility] 250 DO Work Phone: Start: 04-13-2021 End: 04-13-2021 Virtual Visit 04/13/2021 Virtual Visit Neurology Shalom Shelton MD [address] [phone] [facility] Start: 01-24-2021 COVID-19 Vaccine (2 - Booster for Christina series) COVID-19 Vaccine (2 - Booster for Christina series) [facility] Start: 12-20-2020 Creatinine measurement Creatinine mo nitoring [place], [place] Start: 12-20-2020 HbA1c (Bld) [Mass fraction] A1C test (Diabetic or Prediabetic) [place] Start: 12-20-2020 Lipid panel Lipid screen [place], [place] Start: 12-20-2020 Potassium monitoring Potassium monit oring [place], [place] Start: 08-11-2020 End: 08-11-2020 Office Visit 08/11/2020 Office Visit Neurology Shalom Shelton MD [address] [phone] [facility] Start: 05-25-2020 Influenza vaccination M [place], [place] Start: 12-22-2019 Annual Wellness Visi t (AWV) Annual Wellness Visit (AWV) [place] Start: 12-02-2014 Zoster Vaccines (2 o f 3) Zoster Vaccines (2 of 3) [facility] Start: 2012 Abdominal aortic aneurysm screening Abdominal Aortic Aneurysm (AAA) Screening [facility] Start: 2012 Pneumococcal 65+ yea rs Vaccine (1 of 1 - PPSV23) Pneumococcal 65+ years Vaccine (1 of 1 - PPSV23) [place] Start: 1997 Screening for malign ant neoplasm of colon Colon cancer screen colonoscopy [place], [place] Start: 1997 Shingles Vaccine (1 of 2) Shingles Vaccine (1 of 2) [place] Start: 1969 DTaP/Tdap/Td Vaccine s (1 - Tdap) DTaP/Tdap/Td Vaccines (1 - Tdap) [facility] Start: 1966 DTaP/Tdap/Td vaccine (1 - Tdap) DTaP/Tdap/Td vaccine (1 - Tdap) [place] Start: 1965 Diabetes mellitus screening Diabetes Screening [facility] Start: 1965 Hepatitis C screening Hepatitis C [facility] Start: 1947 Abdominal aortic aneurysm screening AAA screen [place], [place] Start: 1947 Hepatitis C screening Hepatitis C [place], [place] Start: 1947 Lipid panel Lipid Panel [facility] Start: 1947 Medicare Annual Wellness Visit Medicare Annual Wellness Visit (AWV) [facility] Start: 1945 Screening for malign ant neoplasm of colon [facility] End: 08-28-2023 Basic metabolic 2000 panel - Serum or Plasma Basic metabolic panel Lab STAT STAT (Lab) for 1 Occurrences starting 08/28/2023 until 08/28/2023 [facility] Service Area Work Phone: Comment on above: STAT (Lab) for 1 Occ urrences starting 08/28/2023 until 08/28/2023 End: 08-31-2023 Basic metabolic 2000 panel - Serum or Plasma Basic Metabolic Panel Lab Routine Morning draw (Lab) for 3 Occurrences starting 08/29/2023 until 08/31/2023 [facility] Work Phone: Comment on above: Morning draw (Lab) f or 3 Occurrences starting 08/29/2023 until 08/31/2023 End: 08-28-2023 CBC W Auto Differential panel - Blood CBC and Auto Differential Lab STAT STAT (Lab) for 1 Occurrences starting 08/28/2023 until 08/28/2023 [facility] Work Phone: Comment on above: STAT (Lab) for 1 Occ urrences starting 08/28/2023 until 08/28/2023 End: 08-31-2023 CBC W Auto Differential panel - Blood CBC and Auto Differential Lab Routine Morning draw (Lab) for 3 Occurrences starting 08/29/2023 until 08/31/2023 [facility] Work Phone: Comment on above: Morning draw (Lab) f or 3 Occurrences starting 08/29/2023 until 08/31/2023 End: 08-28-2023 ECG 12 lead [facility] Work Phone: Comment on above: Once for 1 Occurrenc es starting 08/28/2023 until 08/28/2023 As needed until disc ontinued starting 08/28/2023 End: 08-30-2023 ECG 12 lead daily ECG 12 lead daily ECG Routine Daily for 3 Days starting 08/28/2023 until 08/30/2023, 1 completed [facility] Work Phone: Comment on above: Daily for 3 Days sta rting 08/28/2023 until 08/30/2023, 1 completed End: 08-31-2023 Glucose [Mass/volume] in Serum or Plasma POCT glucose Point of Care Testing - Docked Device Routine 4 times daily before meals and at bedtime for 3 Days starting 08/28/2023 until 08/31/2023 [facility] Work Phone: Comment on above: 4 times daily before meals and at bedtime for 3 Days starting 08/28/2023 until 08/31/2023 End: 08-28-2023 Incentive spirometry Instruct Incentive spirometry Instruct Respiratory Care Routine Once for 1 Occurrences starting 08/28/2023 until 08/28/2023 [facility] Work Phone: Comment on above: Once for 1 Occurrenc es starting 08/28/2023 until 08/28/2023 End: 08-28-2023 Magnesium [Mass/volume] in Serum or Plasma Magnesium Lab STAT STAT (Lab) for 1 Occurrences starting 08/28/2023 until 08/28/2023 [facility] Work Phone: Comment on above: STAT (Lab) for 1 Occ urrences starting 08/28/2023 until 08/28/2023 End: 08-31-2023 Magnesium [Mass/volume] in Serum or Plasma Magnesium Lab Routine Morning draw (Lab) for 3 Occurrences starting 08/29/2023 until 08/31/2023 [facility] Work Phone: Comment on above: Morning draw (Lab) f or 3 Occurrences starting 08/29/2023 until 08/31/2023 End: 08-28-2023 Prothrombin time (PT) Protime-INR Lab STAT STAT (Lab) for 1 Occurrences starting 08/28/2023 until 08/28/2023 [facility] Work Phone: Comment on above: STAT (Lab) for 1 Occ urrences starting 08/28/2023 until 08/28/2023 End: 08-31-2023 Prothrombin time (PT) Protime-INR Lab Routine Morning draw (Lab) for 3 Occurrences starting 08/29/2023 until 08/31/2023 [facility] Work Phone: Comment on above: Morning draw (Lab) f or 3 Occurrences starting 08/29/2023 until 08/31/2023 End: 08-28-2023 Structural heart procedure Structural heart procedure Cardiac Cath Routine Atrial fibrillation (CMS/HCC) Once for 1 Occurrences starting 08/28/2023 until 08/28/2023 [facility] Service Area Work Phone: Comment on above: Once for 1 Occurrenc es starting 08/28/2023 until 08/28/2023 Structural heart procedure Structural heart procedure Cardiac Cath Routine Atrial fibrillation (CMS/HCC) 08/28/2023 12:31 PM [facility] Work Phone: End: 08-28-2023 US Heart Transthoracic [facility] Work Phone: Comment on above: Once for 1 Occurrenc es starting 08/28/2023 until 08/28/2023 Immunizations Immunization Date Immunization Notes Care Provider Fa richmond 10-09-2022 Fluzone High-Dose Quadrivalent 0.7 ML Intramuscular Suspension Prefilled Syringe Sam Cooney Work Phone: [facility] 250 DO Work Phone: 10-09-2022 influenza virus vacc ine, unspecified formulation Trung DrEd Online Doctor [facility] 10-09-2021 Fluzone High-Dose Quadrivalent 0.7 ML Intramuscular Suspension Prefilled Syringe Lumpkin E Baxter Work Phone: [facility] 250 DO Work Phone: 10-09-2021 influenza virus vacc ine, unspecified formulation Trung DrEd Online Doctor [facility] 11-29-2020 Christina COVID-19 Vac cine 0.5 ML Intramuscular Suspension Sam E Baxter Work Phone: [facility] 09-06-2019 influenza virus vacc ine, unspecified formulation Trung DrEd Online Doctor [facility] 09-06-2019 influenza, high dose seasonal, preservative-free Sam E Baxter Work Phone: [facility] 250 DO Work Phone: 06-24-2019 influenza virus vacc ine, unspecified formulation Trung DrEd Online Doctor [facility] 06-24-2019 influenza, high dose seasonal, preservative-free Lumpkin E Baxter Work Phone: [facility] 250 DO Work Phone: 08-04-2018 influenza virus vacc ine, unspecified formulation Trung DrEd Online Doctor [facility] 08-04-2018 influenza, high dose seasonal, preservative-free Lumpkin E Baxter Work Phone: [facility] 250 DO Work Phone: 05-25-2018 influenza virus vacc ine, unspecified formulation Trung FERGUSON [facility] 05-25-2018 influenza, seasonal, injectable Lumpkin E Baxter Work Phone: [facility] 250 DO Work Phone: 09-21-2017 influenza virus vacc ine, unspecified formulation Trung FERGUSON [facility] 09-21-2017 Seasonal trivalent influenza vaccine, adjuvanted, preservative free Sam E Baxter Work Phone: [place] [address] DO Work Phone: 09-24-2016 pneumococcal polysaccharide vaccine, 23 valent Sam E Baxter Work Phone: [facility] 10-19-2015 pneumococcal conjuga te vaccine, 13 valent Sam E Baxter Work Phone: [facility] 07-12-2015 pneumococcal polysaccharide vaccine, 23 valent Sam E Baxter Work Phone: [facility] 2014 zoster vaccine, live Lumpkin E Baxter Work Phone: [facility] 08-08-2011 influenza virus vacc ine, unspecified formulation Trung FERGUSON [facility] 08-08-2011 influenza, seasonal, injectable Lumpkin E Baxter Work Phone: [facility] 250 DO Work Phone: 07-14-2009 influenza virus vacc ine, whole virus Lumpkin E Baxter Work Phone: [facility] 250 DO Work Phone: 07-14-2009 influenza, whole Trung LACI ERS [facility] Payers Date Payer Category Payer Medicare [id number] 2022 Self-pay [id number] 2022 Unknown 2019 Medicare MEDICARE RAILROA D MEDICARE xxxxxxxxxxx 2019-Present [phone] [place] [address] xxxxxxxxxxx [id number] 2019 Unknown [employer] [place] MEDICARE SUPP xxxxxx-xx 2019-Present [phone] ATTN INDIVIDUAL CLAIMS [id number] [place] [address] xxxxxx-xx [id number] 2019 Unknown [id number] 2012 Medicare [id number] 1959 Medicare [id number] 1959 Medicare [id number] 1959 Unknown [id number] 1947 Unknown [id number] 2.16.840.1.185831.3.579.2 .175 1947 Unknown [id number] 2.16.840.1.272079.3.579.2 .175 1947 Unknown [id number] 2.16.840.1.017971.3.579.2 .175 1947 Unknown [id number] 2.16.840.1.853070.3.579.2 .593 1947 Unknown [id number] 2.16.840.1.561698.3.579.2 .593 1947 Unknown [id number] 2.16.840.1.839495.3.579.2 .593 1947 Unknown [id number] 2.16.840.1.181994.3.579.2 .593 1947 Unknown [id number] 2.16.840.1.449810.3.579.2 .593 1947 Unknown [id number] 2.16.840.1.424394.3.579.2 .593 1947 Unknown [id number] 2.16.840.1.008741.3.579.2 .593 1947 Unknown [id number] 2.16.840.1.840005.3.579.2 .593 1947 Unknown [id number] 2.16.840.1.957375.3.579.2 .593 1947 Unknown [id number] 2.16.840.1.298004.3.579.2 .593 1947 Unknown [id number] 2.16.840.1.589799.3.579.2 .593 1947 Unknown [id number] 2.16.840.1.622948.3.579.2 .1259 1947 Unknown [id number] 2.16.840.1.412445.3.579.2 .1259 1947 Unknown [id number] 2.16.840.1.291794.3.579.2 .356 1947 Unknown [id number] 2.16.840.1.591146.3.579.2 .356 1947 Unknown [id number] 2.16.840.1.564217.3.579.2 .356 1947 Unknown [id number] 2.16.840.1.170732.3.579.2 .356 1947 Unknown [id number] 2.16.840.1.092890.3.579.2 .356 1947 Unknown [id number] 2.16.840.1.183827.3.579.2 .356 1947 Unknown [id number] 2.16.840.1.217199.3.579.2 .356 1947 Unknown [id number] 2.16.840.1.419018.3.579.2 .356 1947 Unknown [id number] 2.16.840.1.691952.3.579.2 .356 1947 Unknown [id number] 2.16.840.1.303490.3.579.2 .1245 1947 Unknown [id number] 2.16.840.1.443719.3.579.2 .1245 1947 Unknown [id number] 2.16.840.1.059505.3.579.2 .1244 1947 Unknown [id number] 2.16.840.1.992899.3.579.2 .159 1947 Unknown [id number] 2.16.840.1.622439.3.579.2 .159 1947 Unknown [id number] 2.16.840.1.224158.3.579.2 .727 1947 Unknown [id number] 2.16.840.1.567535.3.579.2 .727 1947 Unknown [id number] 2.16.840.1.304101.3.579.2 .727 1947 Unknown [id number] 2.16.840.1.539012.3.579.2 .727 1947 Unknown [id number] 2.16.840.1.510333.3.579.2 .727 1947 Unknown [id number] 2.16.840.1.039477.3.579.2 .727 1947 Unknown [id number] 2.16.840.1.991880.3.579.2 .1246 1947 Unknown [id number] 2.16.840.1.068752.3.579.2 .1246 1947 Unknown [id number] 2.16.840.1.392045.3.579.2 .1286 1947 Unknown [id number] 2.16.840.1.923199.3.579.2 .1286 Private Health Insurance Unknown [id number] 2.16.840.1.250655.3.579.2 .531 Unknown [id number] 2.16.840.1.043548.3.579.2 .531 Unknown [id number] 2.16.840.1.846292.3.579.2 .531 Unknown [id number] 2.16.840.1.082433.3.579.2 .531 Unknown [id number] 2.16.840.1.886216.3.579.2 .531 Unknown [id number] 2.16.840.1.688478.3.579.2 .531 Unknown [id number] 2.16.840.1.010755.3.579.2 .531 Social History Date Type Detail Facility Start: 02-04-2020 End: 10-22-2023 Tobacco smoking status [facility] Former smoker [facility] Start: 1945 Sex Assigned At Not on file [facility] [place] Start: 1945 Sex Assigned At Male F [facility] Start: 10-13-2020 End: 10-22-2023 Tobacco use and exposure [facility] Start: 08-12-2023 End: 12-28-2023 Exposure to SARS-CoV-2 (event) Not sure [facility] Start: 06-15-2022 End: 08-22-2023 Occasional caffeine consumption Occasional caffeine consumption [facility] Comment on above: Quit ; Tea; Start: 08-29-2021 End: 12-03-2023 Tobacco smoking status Never smoked tobacco (finding) [facility] Tobacco smoking status Never [facility] Start: 06-15-2022 End: 08-22-2023 Sex Assigned At Male [facility] End: 09-24-1957 History of tobacco use Current smoker [facility] Work Phone: End: 09-24-1957 History of tobacco use Cigarette Smoker [facility] Work Phone: Start: 08-22-2023 Alcohol intake Ex-drinker (finding) [facility] Work Phone: Start: 08-13-2023 End: 10-22-2023 Alcohol intake Lifetime non-drinker (finding) [facility] Work Phone: Medical Equipment Procedure Code Equipment Code Equipment Origin al Text Equipment Identifier Dates ()[id number] [id number] Start: 04-07-2020 System, Access, Fxd Dbl Curve, Watchman - [id number] Start: 08-28-2023 Device, Closure, 27mm Watchman Flx Laac - [id number] Start: 08-28-2023 Goals Date Patient Goal Desired Activity /State Functional Status Date Assessment Result Facility 12-03-2023 Functional Status N/A [facility] 07-09-2023 Functional Status N/A [facility] 04-03-2023 Functional Status N/A [facility] 01-23-2023 Functional Status N/A [facility] 01-01-2023 Functional Status N/A [facility] 11-03-2022 Functional Status N/A [facility] 10-02-2022 Functional Status N/A [facility] 06-15-2022 PHQ-9 [id number] In Re mission (0-4) [facility] 250 DO Work Phone: 04-24-2022 Functional Status N/A [facility] Clinical Notes 11-23-2019 to 12-03-2023 Za Hernández MD - 10/22/2023 11:45 AM ESTPatient InstructionsAdam Benedict MD - 08/28/2023 1:11 PM Rudy Felton [facility] - 08/28/2023 12:10 PM ESTDischarge Instructions Note Date & Type Note Facility 12-03-2023 Hospital Discharge instructions Patient Education 12/03/2023 16:13:12 Overactive Bladder, Adult Overactive Bladder, Adult Overactive bladder is a condition in which a person has a sudden and frequent need to urinate. A person might also leak urine if he or she cannot get to the bathroom fast enough (urinary incontinence). Sometimes, symptoms can interfere with work or social activities. What are the causes? Overactive bladder is associated with poor nerve signals between your bladder and your brain. Your bladder may get the signal to empty before it is full. You may also have very sensitive muscles that make your bladder squeeze too soon. This condition may also be caused by other factors, such as: Medical conditions: ?Urinary tract infection. ?Infection of nearby tissues. ?Prostate enlargement. ?Bladder stones, inflammation, or tumors. ?Diabetes. ?Muscle or nerve weakness, especially from these conditions: ?A spinal cord injury. ?Stroke. ?Multiple sclerosis. ?Parkinson's disease. Other causes: ?Surgery on the uterus or urethra. ?Drinking too much caffeine or alcohol. ?Certain medicines, especially those that eliminate extra fluid in the body (diuretics). ?Constipation. What increases the risk? You may be at greater risk for overactive bladder if you: Are an older adult. Smoke. Are going through menopause. Have prostate problems. Have a neurological disease, such as stroke, dementia, Parkinson's disease, or multiple sclerosis (MS). Eat or drink alcohol, spicy food, caffeine, and other things that irritate the bladder. Are overweight or obese. What are the signs or symptoms? Symptoms of this condition include a sudden, strong urge to urinate. Other symptoms include: Leaking urine. Urinating 8 or more times a day. Waking up to urinate 2 or more times overnight. How is this diagnosed? This condition may be diagnosed based on: Your symptoms and medical history. A physical exam. Blood or urine tests to check for possible causes, such as infection. You may also need to see a health care provider who specializes in urinary tract problems. This is called a urologist. How is this treated? Treatment for overactive bladder depends on the cause of your condition and whether it is mild or severe. Treatment may include: Bladder training, such as: ?Learning to control the urge to urinate by following a schedule to urinate at regular intervals. ?Doing Kegel exercises to strengthen the pelvic floor muscles that support your bladder. Special devices, such as: ?Biofeedback. This uses sensors to help you become aware of your body's signals. ?Electrical stimulation. This uses electrodes placed inside the body (implanted) or outside the body. These electrodes send gentle pulses of electricity to strengthen the nerves or muscles that control the bladder. ?Women may use a plastic device, called a pessary, that fits into the vagina and supports the bladder. Medicines, such as: ?Antibiotics to treat bladder infection. ?Antispasmodics to stop the bladder from releasing urine at the wrong time. ?Tricyclic antidepressants to relax bladder muscles. ?Injections of botulinum toxin type A directly into the bladder tissue to relax bladder muscles. Surgery, such as: ?A device may be implanted to help manage the nerve signals that control urination. ?An electrode may be implanted to stimulate electrical signals in the bladder. ?A procedure may be done to change the shape of the bladder. This is done only in very severe cases. Follow these instructions at home: Eating and drinking Make diet or lifestyle changes recommended by your health care provider. These may include: ?Drinking fluids throughout the day and not only with meals. ?Cutting down on caffeine or alcohol. ?Eating a healthy and balanced diet to prevent constipation. This may include: ?Choosing foods that are high in fiber, such as beans, whole grains, and fresh fruits and vegetables. ?Limiting foods that are high in fat and processed sugars, such as fried and sweet foods. Lifestyle Lose weight if needed. Do not use any products that contain nicotine or tobacco. These include cigarettes, chewing tobacco, and vaping devices, such as e-cigarettes. If you need help quitting, ask your health care provider. General instructions Take eauc-yne-vghpyka and prescription medicines only as told by your health care provider. If you were prescribed an antibiotic medicine, take it as told by your health care provider. Do not stop taking the antibiotic even if you start to feel better. Use any implants or pessary as told by your health care provider. If needed, wear pads to absorb urine leakage. Keep a log to track how much and when you drink, and when you need to urinate. This will help your health care provider monitor your condition. Keep all follow-up visits. This is important. Contact a health care provider if: You have a fever or chills. Your symptoms do not get better with treatment. Your pain and discomfort get worse. You have more frequent urges to urinate. Get help right away if: You are not able to control your bladder. Summary Overactive bladder refers to a condition in which a person has a sudden and frequent need to urinate. Several conditions may lead to an overactive bladder. Treatment for overactive bladder depends on the cause and severity of your condition. Making lifestyle changes, doing Kegel exercises, keeping a log, and taking medicines can help with this condition. This information is not intended to replace advice given to you by your health care provider. Make sure you discuss any questions you have with your health care provider. Document Revised: 05/30/2021 Document Reviewed: 05/30/2021 [employer] Patient Education 2022 Maya's Mom. Follow Up Care 07/09/2023 11:46:47 With:MARTY BETANCOURT, Trung Frost, URL Address: [facility] [address], [place] [address] [phone] When: Unknown Comments:6 mos (increase med dosage) [facility] 11-20-2023 Note Procedure Cancelatio n Documentation Entered On: 11/20/2023 10:21 EST Performed On: 11/20/2023 10:17 EST by Sahra Lizarraga RN Procedure Cancelation Documentation Surgery Procedure Cancelation : 11/20/2023 10:17 EST Surgery Procedure Cancel Reason : low hemoglobin/hematocrit. dr shaffer spoke with patient + pt's at length. pt instructed to contact primary care physician Sahra Lizarraga RN - 11/20/2023 10:17 EST [facility] 11-20-[address] Entered On: 11/15/2023 14:01 EST Performed On: 11/20/2023 9:50 EST by Mary Ellen Price RN Infection Screening Travel outside [place] within past 30 days : No Exposure AND/OR close contact with a person under investigation or laboratory-confirmed COVID-19 individual within 14 days of symptom onset AND/OR any of the following: : No Do you live/work in a high risk situation (congregated living, hemodialysis, infusion clinic, penitentiary, assisted living, correction, homeless snf, etc.)? : No Sahra Lizarraga RN - 11/20/2023 9:50 EST Checklist NPO Since : 11/20/2023 08:00 EST Last Fluid Intake : 11/20/2023 08:00 EST Last Food Intake : 11/19/2023 18:00 EST Sahra Lizarraga RN - 11/20/2023 9:50 EST Valuables Prechecklist Grid Valuables at Bedside Clothes : Pants, Shirt, Shoes, Undergarments (Comment: TO LOCKER [Sahra Lizarraga RN - 11/20/2023 9:50 EST] ) Sahra Lizarraga RN - 11/20/2023 9:50 EST Procedure Location : Surgery Sahra Lizarraga RN - 11/20/2023 9:50 EST Surgery Prep Grid CHG Cloth Prep in SOCO : Yes Sahra Lizarraga RN - 11/20/2023 9:50 EST Patient Rights Grid Surgical Consent Signed : Yes Mary Ellen Price RN - 11/20/2023 9:50 EST Anesthesia Consent Signed : No Blood Consent Signed : Yes Mary Ellen Price RN - 11/15/2023 13:49 EST Procedure Checklist is completed for: : left reverse total shoulder replacement, bicep tenodesis Mary Ellen Price RN - 11/15/2023 13:49 EST Allergy (As Of: 11/20/2023 09:51:30 EST) Allergies (Active) No Known Allergies Estimated Onset Date: Unspecified ; Created By: Amy Hager RN; Reaction Status: Active ; Category: Drug ; Substance: No Known Allergies ; Type: Allergy ; Updated By: Amy Hager RN; Reviewed Date: 11/20/2023 9:50 EST Beta Misael Beta Misael History : Patient self administered Date/Time Pre-Procedure Verification : 11/19/2023 12:00 EST Sahra Lizarraga RN - 11/20/2023 10:00 EST Protocols Patient Safety Grid ID Band on and Verified : Yes Fall Risk Gas Plumbing Inspector : Yes Blood Band on and Verified : Yes Current H&P in Medical Record : Yes (Comment: 11/15/23 [Mary Ellen Price RN - 11/15/2023 13:49 EST] ) Mary Ellen Price RN - 11/20/2023 9:50 EST Current ECG in Medical Record : Yes (Comment: 10/12/23 [Mary Ellen Price RN - 11/15/2023 13:49 EST] ) Basic Baldwin : Yes (Comment: 10/12/23 [Mary Ellen Price RN - 11/15/2023 13:49 EST] ) Prox / APTT : Yes (Comment: 10/12/23 [Mary Ellen Price RN - 11/15/2023 13:49 EST] ) Mary Ellen Price RN - 11/15/2023 13:49 EST CBCND : Yes (Comment: 11/15/23- faxed results to Dr. Shaffer's office [Mary Ellen Price RN - 11/15/2023 13:49 EST] ) Mary Ellen Price RN - 11/15/2023 15:39 EST Type & Screen : Yes (Comment: 11/15/23 [Mary Ellen Price RN - 11/15/2023 13:49 EST] ) UA : Yes (Comment: 11/15/23 [Mary Ellen Price RN - 11/15/2023 13:49 EST] ) Mary Ellen Price RN - 11/15/2023 16:00 EST Verification Sleep Apnea : Yes Prosthesis/Metal : right shoulder Pacemaker/AICD : denies Mode of Arrival : Wheelchair Sahra Lizarraga RN - 11/20/2023 9:50 EST DCP GENERIC CODE H&P Update Within 24 hrs on New Admits : Yes MARISOL Hose : Yes Sequential Compression Device : Yes Clipper Prep : Yes Family Waiting : Yes (Comment: , shanice [Sahra Lizarraga RN - 11/20/2023 9:50 EST] ) Can Surgeon Speak With Family : Yes Sahra Lizarraga RN - 11/20/2023 9:50 EST Anesthesia/Transfusions Anesthesia/Transfusions : Prior anesthesia Accept Blood Products if Necessary : Yes Mary Ellen Price RN - 11/15/2023 14:17 EST Advance Directive Advance Directive Date : unk Sahra Lizarraga RN - 11/20/2023 9:50 EST Advanced Directives : Yes Advance Directive Type : Living will, Medical durable power of actionscript developer Advance Directive Location : Family to bring in copy from home Advance Directive Additional Information : No Mary Ellen Price RN - 11/15/2023 14:17 EST Surgical Clipper Prep Surgery Clipper Prep : done in preop Shara Lizarraga RN - 11/20/2023 9:50 EST [facility] 11-20-2023 Note SOCO Education Entere d On: 11/15/2023 13:49 EST Performed On: 11/20/2023 9:51 EST by Mary Ellen Price RN General / Required Education Nursing General Required GRID Call Light Use : Verbalizes understanding Discharge Plan : Needs further teaching Fall Risk : Verbalizes understanding Orientation to Unit/Room : Verbalizes understanding Patient Rights : Verbalizes understanding Plan of Care : Verbalizes understanding Safety : Verbalizes understanding Sahra Lizarraga RN - 11/20/2023 9:51 EST Pain Management : Verbalizes understanding Speakup : Verbalizes understanding Barriers to Learning : None evident Additional Session Learner/s Present : Spouse, Daughter Mary Ellen Price RN - 11/15/2023 14:16 EST TeachBack Methodology : Explanation, Printed Material Mary Ellen Price RN - 11/15/2023 13:49 EST Topic Specific Education Medication Management GRID Pain Can Be Managed,Relieved : Verbalizes understanding Mary Ellen Price RN - 11/15/2023 13:49 EST Education Respiratory Care Nursing GRID Cough/Deep Breathing : Verbalizes understanding Mary Ellen Price RN - 11/15/2023 13:49 EST Fall Prevention Fall Prevention Education Topics Grid Call Light Use : Verbalizes understanding Fall Prevention Protocol : Verbalizes understanding Fall Risk Factors : Verbalizes understanding Nonskid Footwear Use : Verbalizes understanding Sahra Lizarraga RN - 11/20/2023 9:51 EST Infection Control Education Dialysis Surgery - Hospital form # [id number] : Verbalizes understanding Mary Ellen Price RN - 11/15/2023 13:49 EST Pain Pain Education Topics Grid Pain Assessment Tool : Verbalizes understanding Mary Ellen Price RN - 11/15/2023 13:49 EST Pre Procedure / Surgery Education Procedures Tests Exams GRID Anesthesia/Sedation : Verbalizes understanding DVT Prophylaxis : Verbalizes understanding NPO : Verbalizes understanding Preoperative Instructions : Verbalizes understanding Postoperative Instructions : Verbalizes understanding Preprocedure Tests/Labs : Verbalizes understanding Preprocedure Diet : Verbalizes understanding Mary Ellen Price RN - 11/15/2023 13:49 EST [facility] 11-15-2023 Note Patient: NEIL WILCOX Age: 78 years Sex: Male : 1945 Associated Diagnoses: None Author: NAUN MARTINEZ CNP Basic Information Source of history: Self. Chief Complaint Preoperative Examination History of Present Illness 78 year old male patient presents today with displaced fracture of proximal end of humerus, 4 part with impaction of humeral head. Patient with chronic left shoulder pain 2/2 mechanical fall. Experiences limitation in ROM as well. As next step in treatment Dr. Shaffer is recommending left reverse total shoulder replacement, biceps tenodesis. The patient denies any anesthesia problems. Histories Past Medical History: 1.Atrial appendage closure 08/28/23- watchman device placement- Dr. Cobb 2. HTN 3. BPH 4. HLD 5. pAF- with RVR 6. Chronic oAC 7. Former smoker 8. Left frontoparietal stroke Family History: No family history items have been selected or recorded. Procedure history: Left atrial appendage closure- watchman device placement on 08/28/2023 at 77 Years. Social History Social History No active social history has been recorded Psychosocial History No active psychosocial history has been recorded . Health Status Include (Selected) Allergic Reactions (All) No Known Allergies. Current medications: Home Meds (ST) Home Medications (19) Active acetaminophen 500 mg oral tablet 500 mg = 1 tabs, PRN, ORAL, [id number] acetaminophen/butalbital/caffeine 325 mg-50 mg-40 mg oral tablet = Fioricet 1 tabs, PRN, ORAL, [id number] Aspirin EC 81 mg oral delayed release tablet 81 mg = 1 tabs, ORAL, DAILY atorvastatin 40 mg oral tablet 40 mg = 1 tabs, ORAL, DAILY WITH SUPPER doxazosin 4 mg oral tablet 4 mg = 1 tabs, ORAL, DAILY WITH LUNCH ferrous sulfate 325 mg (65 mg elemental iron) oral tablet 325 mg = 1 tabs, ORAL, DAILY finasteride 5 mg oral tablet 5 mg = 1 tabs, ORAL, DAILY WITH LUNCH FLUoxetine 20 mg oral capsule 20 mg = 1 caps, ORAL, DAILY WITH SUPPER folic acid 1 mg oral tablet 1 mg = 1 tabs, ORAL, DAILY levothyroxine 125 mcg (0.125 mg) oral tablet 125 mcg = 1 tabs, ORAL, DAILY BEFORE BREAKFAST loperamide 2 mg oral capsule 2 mg = 1 caps, PRN, ORAL, [id number] losartan 100 mg oral tablet 100 mg = 1 tabs, ORAL, DAILY WITH LUNCH meclizine 25 mg oral tablet 25 mg = 1 tabs, PRN, ORAL, TID memantine 5 mg oral tablet 5 mg = 1 tabs, ORAL, BIDWM metoprolol succinate 25 mg oral tablet, extended release 25 mg = 1 tabs, ORAL, DAILY WITH LUNCH Plavix 75 mg oral tablet 75 mg = 1 tabs, ORAL, DAILY spironolactone 25 mg oral tablet 25 mg = 1 tabs, ORAL, DAILY WITH SUPPER tolterodine 2 mg oral capsule, extended release 2 mg = 1 caps, ORAL, DAILY WITH LUNCH Vitamin B12 1000 mcg oral tablet 1,000 mcg = 1 tabs, ORAL, DAILY Review of Systems Constitutional: No fever, No chills. Ear/Nose/Mouth/Throat: No nasal congestion, No sore throat. Respiratory: No shortness of breath, No cough. Cardiovascular: + HTN +HLD +pAF +Atrial appendage closure with watchman device placement , No chest pain, No peripheral edema. Gastrointestinal: No nausea, No vomiting, No heartburn. Genitourinary: No dysuria, No hematuria. Hematology/Lymphatics: +DONNA. Endocrine: +Hypothyroidism. Musculoskeletal: No joint pain, No muscle pain. Integumentary: No rash, No skin lesion. Neurologic: Alert and oriented X4, +Hx of stroke . Physical Examination VS/Measurements No qualifying data available General: Alert and oriented, No acute distress. Eye: Pupils are equal, round and reactive to light. HENT: Normal hearing. Neck: Supple, Non-tender. Respiratory: Lungs are clear to auscultation, Respirations are non-labored. Cardiovascular: Normal rate, Regular rhythm. Gastrointestinal: Soft, Non-tender. Lymphatics: No lymphadenopathy neck, axilla, groin. Musculoskeletal: Normal range of motion, Normal strength, No tenderness, No swelling. Integumentary: Warm, [place]. Neurologic: Alert, Oriented. Cognition and Speech: Oriented, Speech clear and coherent. Psychiatric: Cooperative, Appropriate mood & affect. Review / Management Diagnostic Findings: ECHO- Echocardiogram November 2019-LVEF 55% normal LV wall thickness normal left atrial size negative bubble study mild aortic regurgitation mild mitral regurgitation trivial tricuspid regurgitation unable to estimate RV systolic pressure. Left atrial volume index was reported to be 41 mL/m?? which actually would suggest left atrial enlargement. Normal IVC diameter and inspiratory collapse Nuclear Test 2021- Lexiscan Myoview September 2021-normal patient with hypertension at that time as well. Impression and Plan 1. Displaced fracture of proximal end of humerus, 4 part with impaction of humeral head- scheduled for left reverse total shoulder replacement, biceps tenodesis 11/20/23. 2. Left atrial appendage closure s/p watchman device placement with Dr. Cobb 08/28/23. Given cardiac clearance and o (more content not included)... [facility] 10-22-2023 History of Present illness Narrative FU from 09/20/23 : Subjective : Accompanied by to the office. No cardiac symptoms Continues to have pain and limitation of movement left shoulder from prior fall. Underwent Watchman device implantation by Dr. Cobb and I have reviewed notes. Patient is requesting preoperative cardiac risk assessment to proceed with surgery. Daughter Briseyda Ramos was on the phone and part of this discussion. History so Far : 1. Hypertension-blood pressure today is low, and patient has orthostatic hypotension, today however blood pressure is only 10 mm down between sitting and standing. 3. Lexiscan Myoview September 2021-normal patient with hypertension at that time as well 3. 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 Recent lab results are within normal limits. 4.Hyperlipidemia-on statin therapy, lipid profile is at target 5.BPH-on medications 6. Left frontoparietal stroke 7. Echocardiogram November 2019-LVEF 55% normal LV wall thickness normal left atrial size negative bubble study mild aortic regurgitation mild mitral regurgitation trivial tricuspid regurgitation unable to estimate RV systolic pressure. Left atrial volume index was reported to be 41 mL/m which actually would suggest left atrial enlargement. Normal IVC diameter and inspiratory collapse 8. Paroxysmal atrial fibrillation with rapid ventricular rate based on loop recorder interrogation report from July 2022. Patient does not have much in the way of symptoms. 9. Hypercoagulability due to atrial fibrillation, on anticoagulation. 10. [id number] at least 5. Has bled score 2 insurance changed, now able to afford Eliquis. 11. Frequent falls, risk of injury due to fall. 12. New anemia, possibly related to extensive ecchymosis left arm after the fall. No GI bleeding reported 13. Underwent left atrial appendage closure August 28 2023-27 mm Watchman device. 14. Limited echo August 28, 2023-LVEF 60 to 65%, trivial pericardial effusion Objective Failed to redirect to the Timeline version of the REV[employer] SmartLink. Wt Readings from Last 3 Encounters: 10/22/23 83.5 kg (184 lb) 08/22/23 79.4 kg (175 lb) 02/26/23 79.7 kg (175 lb 9.6 oz) Visit Vitals BP 124/72 (BP Location: Right arm, Patient Position: Sitting) Pulse 56 Ht 1.753 m (5' 9 ) Wt 83.5 kg (184 lb) BMI 27.17 kg/m Smoking Status Former BSA 2.02 m Physical Exam: Patient is awake alert oriented , with significant short-term memory impairment Lungs are clear Heart sounds are regular without murmur rub or gallop Extremities show no edema Ambulates without assistance. Meds: Current Outpatient Medications Medication Instructions amoxicillin (AMOXIL) 500 mg, oral, Take 2 tablets 1 hr prior to dental procedure, take 2 tablets post 1 hr dental procedure aspirin 81 mg, oral, Daily atorvastatin (LIPITOR) 40 mg, oral, Daily okctdybhvl-axruysw-nqdduqjm (Fiorinal) 50-325-40 mg capsule 1 capsule, oral, Every 4 hours PRN clopidogrel (PLAVIX) 75 mg, oral, Daily cyanocobalamin (VITAMIN B-12) 1,000 mcg, oral, Daily RT doxazosin (CARDURA) 4 mg, oral, Daily ferrous sulfate 65 mg, oral, Daily with breakfast, Do not crush, chew, or split. finasteride (PROSCAR) 5 mg, oral, Daily FLUoxetine (PROzac) 20 mg capsule 1 capsule, oral, Daily folic acid (FOLVITE) 1 mg, oral, Daily levothyroxine (SYNTHROID, LEVOXYL) 125 mcg, oral, Daily before breakfast loperamide (IMODIUM) 2 mg, oral, 4 times daily PRN losartan (COZAAR) 50 mg, oral, Daily meclizine (ANTIVERT) 25 mg, oral, 3 times daily PRN memantine (NAMENDA) 5 mg, oral, 2 times daily metoprolol succinate XL (TOPROL-XL) 25 mg, oral, Daily spironolactone (ALDACTONE) 25 mg, oral, Daily tolterodine LA (DETROL LA) 2 mg, oral, Daily, Do not crush, chew, or split. No Known Allergies LABS: Lab Results Component Value Date WBC 5.1 04/06/2021 HGB 10.0 (L) 04/06/2021 HCT 29.6 (L) 04/06/2021 PLT 115 (L) 04/06/2021 ALT 16 04/01/2021 AST 18 04/01/2021 NA 137 04/06/2021 K 3.9 04/06/2021 CL 104 04/06/2021 CREATININE 1.23 08/22/2023 BUN 13 04/06/2021 CO2 24 04/06/2021 TSH 0.24 (L) 12/08/2020 INR 1.0 04/06/2021 Patient Active Problem List Diagnosis Date Noted Unspecified mood (affective) disorder (CMS/HCC) 10/22/2023 Former smoker 10/22/2023 Encounter for pre-operative cardiovascular clearance 10/22/2023 Other nondisplaced fracture of upper end of left humerus, subsequent encounter for fracture with routine healing 09/11/2023 Presence of Watchman left atrial appendage closure device 08/27/2023 BPH (benign prostatic hyperplasia) 08/10/2023 Hypertension 08/10/2023 Implantable loop recorder present 08/10/2023 Mixed hyperlipidemia 08/10/2023 Other fatigue 08/10/2023 Paroxysmal atrial fibrillation with RVR (CMS/HCC) 08/10/2023 Status post placement of implantable loop recorder 08/10/2023 TIA (transient ischemic attack) 08/10/2023 Abnormal gait 07/31/2023 Acquired hallux valgus of left foot 07/31/2023 Acquired hallux valgus of right foot 07/31/2023 Acquired hammer toe of left foot 07/31/2023 Acquired hammer toe of right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 count 2.8 TSH and free T43.33 And 0.17 respectively. In July 2022 hemoglobin and hematocrit were 12 and 34 respectively.Unsure as to whether patient is taking losartan. Losartan is noted among the medication bottles that patient brought in. Patient's will call to update.Assessment:1. Hypertension-blood pressure today is low, and patient has orthostatic hypotension, today however blood pressure is only 10 mm down between sitting and standing.3. Lexiscan Myoview September 2021-normal patient with hypertension at that time as well3. 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 Recent lab results are within normal limits.4.Hyperlipidemia-on statin therapy, lipid profile is at target5.BPH-on medications6. Left frontoparietal stroke7. Echocardiogram November 2019-LVEF 55% normal LV wall thickness normal left atrial size negative bubble study mild aortic regurgitation mild mitral regurgitation trivial tricuspid regurgitation unable to estimate RV systolic pressure. Left atrial volume index was reported to be 41 mL/m which actually would suggest left atrial enlargement. Normal IVC diameter and inspiratory collapse8. Paroxysmal atrial fibrillation with rapid ventricular rate based on loop recorder interrogation report from July 2022. Patient does not have much in the way of symptoms.9. Hypercoagulability due to atrial fibrillation, on anticoagulation.10. [id number] at least 5. Has bled score 2 insurance changed, now able to afford Eliquis.11. Frequent falls, risk of injury due to fall.12. New anemia, possibly related to extensive ecchymosis left arm after the fall. No GI bleeding reportedRecommendations:1.Extensi ve discussion about referral for Watchman device. Reluctantly patient and are in agreement.2. Referral to Dr. Cobb for Watchman device was initiated3. Titrate blood pressure medications to upright blood pressure4. Follow-up in August 2023.5. Recheck CBC prior to next visit6. If patient is currently on losartan 100 mg p.o. daily, I will reduce the dose to 50 mg p.o. daily and discontinue amlodipine. -[facility] Carlotta DO Work Phone: 01-23-2023 Hospital Discharge instructions Patient Education 01/23/2023 14:45:05 Intertrigo Intertrigo Intertrigo is skin irritation or inflammation (dermatitis) that occurs when folds of skin rub together. The irritation can cause a rash and make skin raw and itchy. This condition most commonly occurs in the skin folds of these areas: Toes. Armpits. Groin. Under the belly. Under the breasts. Buttocks. Intertrigo is not passed from person to person (is not contagious). What are the causes? This condition is caused by heat, moisture, rubbing (friction), and not enough air circulation. The condition can be made worse by: Sweat. Bacteria. A fungus, such as yeast. What increases the risk? This condition is more likely to occur if you have moisture in your skin folds. You are more likely to develop this condition if you: Have diabetes. Are overweight. Are not able to move around or are not active. Live in a warm and moist climate. Wear splints, braces, or other medical devices. Are not able to control your bowels or bladder (have incontinence). What are the signs or symptoms? Symptoms of this condition include: A pink or red skin rash in the skin fold or near the skin fold. Raw or scaly skin. Itchiness. A burning feeling. Bleeding. Leaking fluid. A bad smell. How is this diagnosed? This condition is diagnosed with a medical history and physical exam. You may also have a skin swab to test for bacteria or a fungus. How is this treated? This condition may be treated by: Cleaning and drying your skin. Taking an antibiotic medicine or using an antibiotic skin cream for a bacterial infection. Using an antifungal cream on your skin or taking pills for an infection that was caused by a fungus, such as yeast. Using a steroid ointment to relieve itchiness and irritation. the skin fold with a clean cotton cloth to absorb moisture and allow air to flow into the area. Follow these instructions at home: Keep the affected area clean and dry. Do not scratch your skin. Stay in a cool environment as much as possible. Use an air conditioner or fan, if available. Apply aswt-uub-vboqsxb and prescription medicines only as told by your health care provider. If you were prescribed an antibiotic medicine, use it as told by your health care provider. Do not stop using the antibiotic even if your condition improves. Keep all follow-up visits as told by your health care provider. This is important. How is this prevented? Maintain a healthy weight. Take care of your feet, especially if you have diabetes. Foot care includes: ?Wearing shoes that fit well. ?Keeping your feet dry. ?Wearing clean, breathable socks. Protect the skin around your groin and buttocks, especially if you have incontinence. Skin protection includes: ?Following a regular cleaning routine. ?Using skin protectant creams, powders, or ointments. ?Changing protection pads frequently. Do not wear tight clothes. Wear clothes that are loose, absorbent, and made of cotton. Wear a bra that gives good support, if needed. Shower and dry yourself well after activity or exercise. Use a driver wheelchair on a cool setting to dry between skin folds, especially after you bathe. If you have diabetes, keep your blood sugar under control. Contact a health care provider if: Your symptoms do not improve with treatment. Your symptoms get worse or they spread. You notice increased redness and warmth. You have a fever. Summary Intertrigo is skin irritation or inflammation (dermatitis) that occurs when folds of skin rub together. This condition is caused by heat, moisture, rubbing (friction), and not enough air circulation. This condition may be treated by cleaning and drying your skin and with medicines. Apply rlro-ikn-akpaimf and prescription medicines only as told by your health care provider. Keep all follow-up visits as told by your health care provider. This is important. This information is not intended to replace advice given to you by your health care provider. Make sure you discuss any questions you have with your health care provider. Document Revised: 06/26/2022 Document Reviewed: 06/26/2022 [employer] Patient Education 2022 Maya's Mom. [facility] 01-01-2023 Hospital Discharge instructions Patient Education 01/01/2023 13:18:22 Urethral Stricture Urethral Stricture Urethral stricture is narrowing of the tube (urethra) that carries urine from the bladder out of the body. The urethra can become narrow due to scar tissue from an injury or infection. This can make it difficult to pass urine. In women, the urethra opens above the vaginal opening. In men, the urethra opens at the tip of the penis, and the urethra is much longer than it is in women. Because of the length of the male urethra, urethral stricture is much more common in men. This condition is treated with surgery. What are the causes? In both men and women, common causes of urethral stricture include: Urinary tract infection (UTI). Sexually transmitted infection (STI). Use of a tube placed into the urethra to drain urine from the bladder (urinary catheter). Urinary tract surgery. In men, common causes of urethral stricture include: A severe injury to the pelvis. Prostate surgery. Injury to the penis. In many cases, the cause of urethral stricture is not known. What increases the risk? You are more likely to develop this condition if you: Are male. Men who have had prostate surgery are at risk of developing this condition. Use a urinary catheter. Have had urinary tract surgery. What are the signs or symptoms? The main symptom of this condition is difficulty passing urine. This may cause decreased urine flow, dribbling, or spraying of urine. Other symptom of this condition may include: Frequent UTIs. Blood in the urine. Pain when urinating. Swelling of the penis in men. Inability to pass urine (urinary obstruction). How is this diagnosed? This condition may be diagnosed based on: Your medical history and a physical exam. Urine tests to check for infection or bleeding. X-rays. Ultrasound. Retrograde urethrogram. This is a type of test in which dye is injected into the urethra and then an X-ray is taken. Urethroscopy. This is when a thin tube with a light and camera on the end (urethroscope) is used to look at the urethra. How is this treated? This condition is treated with surgery. The type of surgery that you have depends on the severity of your condition. You may have: Urethral dilation. In this procedure, the narrow part of the urethra is stretched open (dilated) with dilating instruments or a small balloon. Urethrotomy. In this procedure, a urethroscope is placed into the urethra, and the narrow part of the urethra is cut open with a surgical blade inserted through the urethroscope. Open surgery. In this procedure, an incision is made in the urethra, the narrow part is removed, and the urethra is reconstructed. Follow these instructions at home: Take [id number] and prescription medicines only as told by your health care provider. If you were prescribed an antibiotic medicine, take it as told by your health care provider. Do not stop taking the antibiotic even if you start to feel better. Drink enough fluid to keep your urine pale yellow. Keep all follow-up visits as told by your health care provider. This is important. Contact a health care provider if: You have signs of a urinary tract infection, such as: ?Frequent urination or passing small amounts of urine frequently. ?Needing to urinate urgently. ?Pain or burning with urination. ?Urine that smells bad or unusual. ?Cloudy urine. ?Pain in the lower abdomen or back. ?Trouble urinating. ?Blood in the urine. ?Vomiting or being less hungry than normal. ?Diarrhea or abdominal pain. ?Vaginal discharge, if you are female. Your symptoms are getting worse instead of better. Get help right away if: You cannot pass urine. You have a fever. You have swelling, bruising, or discoloration of your genital area. This includes the penis, scrotum, and inner thighs for men, and the outer genital organs (vulva) and inner thighs for women. You develop swelling in your legs. You have difficulty breathing. Summary Urethral stricture is narrowing of the tube (urethra) that carries urine from the bladder out of the body. The urethra can become narrow due to scar tissue from an injury or infection. This condition can make it difficult to pass urine. This condition is treated with surgery. The type of surgery that you have depends on the severity of your condition. Contact a health care provider if your symptoms get worse or you have signs of a urinary tract infection. This information is not intended to replace advice given to you by your health care provider. Make sure you discuss any questions you have with your health care provider. Document Released: 10/06/2016 Document Revised: 04/23/2019 Document Reviewed: 04/23/2019 [employer] Patient Education 2020 [employer]. Follow Up Care 10/02/2022 12:40:38 With:MARTY BETANCOURT, Trung Frost, URL Address: [facility] [address] , [place] [address]- When: Unknown [facility] 11-03-2022 Hospital Discharge instructions Patient Education 11/03/2022 13:52:54 Urethral Stricture Urethral Stricture Urethral stricture is narrowing of the tube (urethra) that carries urine from the bladder out of the body. The urethra can become narrow due to scar tissue from an injury or infection. This can make it difficult to pass urine. In women, the urethra opens above the vaginal opening. In men, the urethra opens at the tip of the penis, and the urethra is much longer than it is in women. Because of the length of the male urethra, urethral stricture is much more common in men. This condition is treated with surgery. What are the causes? In both men and women, common causes of urethral stricture include: Urinary tract infection (UTI). Sexually transmitted infection (STI). Use of a tube placed into the urethra to drain urine from the bladder (urinary catheter). Urinary tract surgery. In men, common causes of urethral stricture include: A severe injury to the pelvis. Prostate surgery. Injury to the penis. In many cases, the cause of urethral stricture is not known. What increases the risk? You are more likely to develop this condition if you: Are male. Men who have had prostate surgery are at risk of developing this condition. Use a urinary catheter. Have had urinary tract surgery. What are the signs or symptoms? The main symptom of this condition is difficulty passing urine. This may cause decreased urine flow, dribbling, or spraying of urine. Other symptom of this condition may include: Frequent UTIs. Blood in the urine. Pain when urinating. Swelling of the penis in men. Inability to pass urine (urinary obstruction). How is this diagnosed? This condition may be diagnosed based on: Your medical history and a physical exam. Urine tests to check for infection or bleeding. X-rays. Ultrasound. Retrograde urethrogram. This is a type of test in which dye is injected into the urethra and then an X-ray is taken. Urethroscopy. This is when a thin tube with a light and camera on the end (urethroscope) is used to look at the urethra. How is this treated? This condition is treated with surgery. The type of surgery that you have depends on the severity of your condition. You may have: Urethral dilation. In this procedure, the narrow part of the urethra is stretched open (dilated) with dilating instruments or a small balloon. Urethrotomy. In this procedure, a urethroscope is placed into the urethra, and the narrow part of the urethra is cut open with a surgical blade inserted through the urethroscope. Open surgery. In this procedure, an incision is made in the urethra, the narrow part is removed, and the urethra is reconstructed. Follow these instructions at home: Take fvwi-wrc-eetlosx and prescription medicines only as told by your health care provider. If you were prescribed an antibiotic medicine, take it as told by your health care provider. Do not stop taking the antibiotic even if you start to feel better. Drink enough fluid to keep your urine pale yellow. Keep all follow-up visits as told by your health care provider. This is important. Contact a health care provider if: You have signs of a urinary tract infection, such as: ?Frequent urination or passing small amounts of urine frequently. ?Needing to urinate urgently. ?Pain or burning with urination. ?Urine that smells bad or unusual. ?Cloudy urine. ?Pain in the lower abdomen or back. ?Trouble urinating. ?Blood in the urine. ?Vomiting or being less hungry than normal. ?Diarrhea or abdominal pain. ?Vaginal discharge, if you are female. Your symptoms are getting worse instead of better. Get help right away if: You cannot pass urine. You have a fever. You have swelling, bruising, or discoloration of your genital area. This includes the penis, scrotum, and inner thighs for men, and the outer genital organs (vulva) and inner thighs for women. You develop swelling in your legs. You have difficulty breathing. Summary Urethral stricture is narrowing of the tube (urethra) that carries urine from the bladder out of the body. The urethra can become narrow due to scar tissue from an injury or infection. This condition can make it difficult to pass urine. This condition is treated with surgery. The type of surgery that you have depends on the severity of your condition. Contact a health care provider if your symptoms get worse or you have signs of a urinary tract infection. This information is not intended to replace advice given to you by your health care provider. Make sure you discuss any questions you have with your health care provider. Document Released: 10/06/2016 Document Revised: 04/23/2019 Document Reviewed: 04/23/2019 [employer] Patient Education 2019 [employer]. Follow Up Care 11/03/2022 12:06:47 With:MARTY BETANCOURT, Trung Frost, URL Address: [address] [place] [phone]- When: Unknown [facility] 10-02-2022 Hospital Discharge instructions Patient Education 10/02/2022 12:35:57 Overactive Bladder, Adult Overactive Bladder, Adult Overactive bladder refers to a condition in which a person has a sudden need to pass urine. The person may leak urine if he or she cannot get to the bathroom fast enough (urinary incontinence). A person with this condition may also wake up several times in the night to go to the bathroom. Overactive bladder is associated with poor nerve signals between your bladder and your brain. Your bladder may get the signal to empty before it is full. You may also have very sensitive muscles that make your bladder squeeze too soon. These symptoms might interfere with daily work or social activities. What are the causes? This condition may be associated with or caused by: Urinary tract infection. Infection of nearby tissues, such as the prostate. Prostate enlargement. Surgery on the uterus or urethra. Bladder stones, inflammation, or tumors. Drinking too much caffeine or alcohol. Certain medicines, especially medicines that get rid of extra fluid in the body (diuretics). Muscle or nerve weakness, especially from: ?A spinal cord injury. ?Stroke. ?Multiple sclerosis. ?Parkinson's disease. Diabetes. Constipation. What increases the risk? You may be at greater risk for overactive bladder if you: Are an older adult. Smoke. Are going through menopause. Have prostate problems. Have a neurological disease, such as stroke, dementia, Parkinson's disease, or multiple sclerosis (MS). Eat or drink things that irritate the bladder. These include alcohol, spicy food, and caffeine. Are overweight or obese. What are the signs or symptoms? Symptoms of this condition include: Sudden, strong urge to urinate. Leaking urine. Urinating 8 or more times a day. Waking up to urinate 2 or more times a night. How is this diagnosed? Your health care provider may suspect overactive bladder based on your symptoms. He or she will diagnose this condition by: A physical exam and medical history. Blood or urine tests. You might need bladder or urine tests to help determine what is causing your overactive bladder. You might also need to see a health care provider who specializes in urinary tract problems (urologist). How is this treated? Treatment for overactive bladder depends on the cause of your condition and whether it is mild or severe. You can also make lifestyle changes at home. Options include: Bladder training. This may include: ?Learning to control the urge to urinate by following a schedule that directs you to urinate at regular intervals (timed voiding). ?Doing Kegel exercises to strengthen your pelvic floor muscles, which support your bladder. Toning these muscles can help you control urination, even if your bladder muscles are overactive. Special devices. This may include: ?Biofeedback, which uses sensors to help you become aware of your body's signals. ?Electrical stimulation, which uses electrodes placed inside the body (implanted) or outside the body. These electrodes send gentle pulses of electricity to strengthen the nerves or muscles that control the bladder. ?Women may use a plastic device that fits into the vagina and supports the bladder (pessary). Medicines. ?Antibiotics to treat bladder infection. ?Antispasmodics to stop the bladder from releasing urine at the wrong time. ?Tricyclic antidepressants to relax bladder muscles. ?Injections of botulinum toxin type A directly into the bladder tissue to relax bladder muscles. Lifestyle changes. This may include: ?Weight loss. Talk to your health care provider about weight loss methods that would work best for you. ?Diet changes. This may include reducing how much alcohol and caffeine you consume, or drinking fluids at different times of the day. ?Not smoking. Do not use any products that contain nicotine or tobacco, such as cigarettes and e-cigarettes. If you need help quitting, ask your health care provider. Surgery. ?A device may be implanted to help manage the nerve signals that control urination. ?An electrode may be implanted to stimulate electrical signals in the bladder. ?A procedure may be done to change the shape of the bladder. This is done only in very severe cases. Follow these instructions at home: Lifestyle Make any diet or lifestyle changes that are recommended by your health care provider. These may include: ?Drinking less fluid or drinking fluids at different times of the day. ?Cutting down on caffeine or alcohol. ?Doing Kegel exercises. ?Losing weight if needed. ?Eating a healthy and balanced diet to prevent constipation. This may include: ?Eating foods that are high in fiber, such as fresh fruits and vegetables, whole grains, and beans. ?Limiting foods that are high in fat and processed sugars, such as fried and sweet foods. General instructions Take wtvp-xnb-[id number] and prescription medicines only as told by your health care provider. If you were prescribed an antibiotic medicine, take it as told by your health care provider. Do not stop taking the antibiotic even if you start to feel better. Use any implants or pessary as told by your health care provider. If needed, wear pads to absorb urine leakage. Keep a journal or log to track how much and when you drink and when you feel the need to urinate. This will help your health care provider monitor your condition. Keep all follow-up visits as told by your health care provider. This is important. Contact a health care provider if: You have a fever. Your symptoms do not get better with treatment. Your pain and discomfort get worse. You have more frequent urges to urinate. Get help right away if: You are not able to control your bladder. Summary Overactive bladder refers to a condition in which a person has a sudden need to pass urine. Several conditions may lead to an overactive bladder. Treatment for overactive bladder depends on the cause and severity of your condition. Follow your health care provider's instructions about lifestyle changes, doing Kegel exercises, keeping a journal, and taking medicines. This information is not intended to replace advice given to you by your health care provider. Make sure you discuss any questions you have with your health care provider. Document Released: 07/07/2010 Document Revised: 01/01/2020 Document Reviewed: 09/26/2018 [employer] Patient Education 2020 [employer]. Follow Up Care 07/24/2022 14:33:35 With:MARTY BETANCOURT, Trung Frost, URL Address: [facility] [address], [place] [phone] When:Within 3 Month(s) [facility] 09-24-2022 History of Present illness Narrative 77-year-old is accompanied by to the office. Last seen by me in September 2022 and soon thereafter seen by Loulou Arreguin NP. At last office visit blood pressure was suboptimally controlled. Patient complains of fatigue. His blood pressure is low in the 90s systolic, orthostatics were checked, and there is orthostatic hypotension standing blood pressure is 80 mmHg.Remains on high risk medication Eliquis with no bleeding diathesis. Denies palpitations chest pressure tightness or heaviness. Denies any falls. No recent laboratory data to review.Assessment:1. Hypertension-blood pressure today is low, and patient has orthostatic hypotension, fatigue could be related to this.3. Lexiscan Myoview September 2021-normal patient with hypertension at that time as well3. Abnormalities in thyroid function, on levothyroxine.4.Hyperlipidemia-on statin therapy5.BPH-on medications6. Left frontoparietal stroke7. Echocardiogram November 2019-LVEF 55% normal LV wall thickness normal left atrial size negative bubble study mild aortic regurgitation mild mitral regurgitation trivial tricuspid regurgitation unable to estimate RV systolic pressure. Left atrial volume index was reported to be 41 mL/m which actually would suggest left atrial enlargement. Normal IVC diameter and inspiratory collapse8. Paroxysmal atrial fibrillation with rapid ventricular rate based on loop recorder interrogation report from July 2022. Patient does not have much in the way of symptoms.9. Hypercoagulability due to atrial fibrillation, on anticoagulation.10. [id number] at least 5. Has bled score 2 insurance changed, now able to afford EliECO Filmsis.Recommendations:1. Decrease metoprolol succinate to 25 mg p.o. daily,in view of sinus bradycardia and arterial hypotension.2. Decrease amlodipine from 10 mg daily to 5 mg daily3. Keep home blood pressure log, in the morning and then 2 hours after morning medications4. CBC Free T4 TSH comprehensive profile and lipid profile in the near future5. Stagger medications, take losartan in the morning, take metoprolol and doxazosin at bedtime.6. We will down titrate medications further based on blood pressure readings and symptoms.7. Follow-up in 2 to 3 months sooner if interval problems arise [facility]-Kayode Laguerre DO Work Phone: 05-25-2022 History of Present illness Narrative This is a follow-up from May 2022 visit.Patient with an acute stroke with no definite etiology, preserved LV systolic function, negative Lexiscan Myoview, loop recorder was implanted in 2019. Has BPH.Has a thyroid deficiency, is on replacement.Reviewed laboratory data from 08/22/2022, sodium 138 potassium 3.7 GFR greater than 60 creatinine 1.0 hemoglobin 12 hematocrit 34 MCV 102 platelets 191 INR 1.05.Blood pressure remains elevated in both upper extremities.Loop recorder interrogation does suggest tachycardia narrow complex with slight irregularity, very suspicious for atrial fibrillation.Assessment:1. Hypertension-above target3. Lexiscan Myoview September 2021-normal patient with hypertension at that time as well3. Abnormalities in thyroid function, on levothyroxine.4.Hyperlipidemia-on statin therapy5.BPH-on medications6. Left frontoparietal stroke7. Echocardiogram November 2019-LVEF 55% normal LV wall thickness normal left atrial size negative bubble study mild aortic regurgitation mild mitral regurgitation trivial tricuspid regurgitation unable to estimate RV systolic pressure. Left atrial volume index was reported to be 41 mL/m which actually would suggest left atrial enlargement. Normal IVC diameter and inspiratory collapse8. Paroxysmal atrial fibrillation with rapid ventricular rate based on loop recorder interrogation report from July 2022. Patient does not have much in the way of symptoms.Recommendations:1. Patient was informed that the patient has an irregularly irregular heart rate, and it is called atrial fibrillation. The pathophysiology of atrial fibrillation, some of the precipitating factors, and the risk of stroke with atrial fibrillation was discussed. Patient was informed that there are different modalities for treating atrial fibrillation, and the plan of treatment would be individualized to the patient's needs and response. The importance of blood thinners to prevent stroke in atrial fibrillation was discussed, the pros and cons of blood thinners were also discussed to include bleeding with over treatment and lack of stroke protection in the setting of under treatment. We talked about the available medications for stroke prevention, to include warfarin and the newer anticoagulation agents. The newer anticoagulation agents that were discussed included Eliquis, and Xarelto. Benefits of warfarin that were discussed included lower-cost and ability to reverse promptly. The downside of warfarin is in need for frequent blood draws, the interaction of food with INR level, and variability of INR level based on other medications such as antibiotic usage. The downside of warfarin also include erratic anticoagulation and the need for frequent blood monitoring. The downside of newer anticoagulation agents include higher cost and at times inability to reverse effects in an emergency . Patient expressed understanding. Patient was also told that if there is any evidence of bleeding such as black stool or blood in the stool or traumatic falls, prompt medical attention should be sought. If patient were to have surgical procedures, they would be interruption in these medications, and additional orders will need to be provided.Also discussed the fact that atrial fibrillation management includes controlling the rate and establishing normal rhythm. Different medications will be trialed based on patient's characteristics for either approach.Fall risk was also assessed. There was discussion about fall prevention, and in the event of a fall, patient the need to be evaluated to assess injuries, particularly bleeding issues.Patient should report promptly in the event of any noticeable bleeding such as blood in the stool or black stool bleeding from the nose etc.2. Start spironolactone 25 mg p.o. daily3. Doxazosin 2 mg daily4. 2-week follow-up for blood pressure and orthostatics5. Fall precautions were reiterated. [facility] Jacquelin-Kayode Laguerre DO Work Phone: 04-24-2022 Hospital Discharge instructions Patient Education 04/24/2022 12:32:07 Urinary Incontinence Urinary Incontinence Urinary incontinence refers to a condition in which a person is unable to control where and when to pass urine. A person with this condition will urinate when he or she does not mean to (involuntarily). What are the causes? This condition may be caused by: Medicines. Infections. Constipation. Overactive bladder muscles. Weak bladder muscles. Weak pelvic floor muscles. These muscles provide support for the bladder, intestine, and, in women, the uterus. Enlarged prostate in men. The prostate is a gland near the bladder. When it gets too big, it can pinch the urethra. With the urethra blocked, the bladder can weaken and lose the ability to empty properly. Surgery. Emotional factors, such as anxiety, stress, or post-traumatic stress disorder (PTSD). Pelvic organ prolapse. This happens in women when organs shift out of place and into the vagina. This shift can prevent the bladder and urethra from working properly. What increases the risk? The following factors may make you more likely to develop this condition: Older age. Obesity and physical inactivity. and childbirth. Menopause. Diseases that affect the nerves or spinal cord (neurological diseases). Long-term (chronic) coughing. This can increase pressure on the bladder and pelvic floor muscles. What are the signs or symptoms? Symptoms may vary depending on the type of urinary incontinence you have. They include: A sudden urge to urinate, but passing urine involuntarily before you can get to a bathroom (urge incontinence). Suddenly passing urine with any activity that forces urine to pass, such as coughing, laughing, exercise, or sneezing (stress incontinence). Needing to urinate often, but urinating only a small amount, or constantly dribbling urine (overflow incontinence). Urinating because you cannot get to the bathroom in time due to a physical disability, such as arthritis or injury, or communication and thinking problems, such as Alzheimer disease (functional incontinence). How is this diagnosed? This condition may be diagnosed based on: Your medical history. A physical exam. Tests, such as: ?Urine tests. ?X-rays of your kidney and bladder. ?Ultrasound. ?CT scan. ?Cystoscopy. In this procedure, a health care provider inserts a tube with a light and camera (cystoscope) through the urethra and into the bladder in order to check for problems. ?Urodynamic testing. These tests assess how well the bladder, urethra, and sphincter can store and release urine. There are different types of urodynamic tests, and they vary depending on what the test is measuring. To help diagnose your condition, your health care provider may recommend that you keep a log of when you urinate and how much you urinate. How is this treated? Treatment for this condition depends on the type of incontinence that you have and its cause. Treatment may include: Lifestyle changes, such as: ?Quitting smoking. ?Maintaining a healthy weight. ?Staying active. Try to get 150 minutes of moderate-intensity exercise every week. Ask your health care provider which activities are safe for you. ?Eating a healthy diet. ?Avoid high-fat foods, like fried foods. ?Avoid refined carbohydrates like white bread and white rice. ?Limit how much alcohol and caffeine you drink. ?Increase your fiber intake. Foods such as fresh fruits, vegetables, beans, and whole grains are healthy sources of fiber. Pelvic floor muscle exercises. Bladder training, such as lengthening the amount of time between bathroom breaks, or using the bathroom at regular intervals. Using techniques to suppress bladder urges. This can include distraction techniques or controlled breathing exercises. Medicines to relax the bladder muscles and prevent bladder spasms. Medicines to help slow or prevent the growth of a man's prostate. Botox injections. These can help relax the bladder muscles. Using pulses of electricity to help change bladder reflexes (electrical nerve stimulation). For women, using a director [employer] to prevent urine leaks. This is a small, tampon-like, disposable device that is inserted into the urethra. Injecting collagen or carbon beads (bulking agents) into the urinary sphincter. These can help thicken tissue and close the bladder opening. Surgery. Follow these instructions at home: Lifestyle Limit alcohol and caffeine. These can fill your bladder quickly and irritate it. Keep yourself clean to help prevent odors and skin damage. Ask your doctor about special skin creams and cleansers that can protect the skin from urine. Consider wearing pads or adult diapers. Make sure to change them regularly, and always change them right after experiencing incontinence. General instructions Take vauv-toc-efqjbry and prescription medicines only as told by your health care provider. Use the bathroom about every 3 4 hours, even if you do not feel the need to urinate. Try to empty your bladder completely every time. After urinating, wait a minute. Then try to urinate again. Make sure you are in a relaxed position while urinating. If your incontinence is caused by nerve problems, keep a log of the medicines you take and the times you go to the bathroom. Keep all follow-up visits as told by your health care provider. This is important. Contact a health care provider if: You have pain that gets worse. Your incontinence gets worse. Get help right away if: You have a fever or chills. You are unable to urinate. You have redness in your groin area or down your legs. Summary Urinary incontinence refers to a condition in which a person is unable to control where and when to pass urine. This condition may be caused by medicines, infection, weak bladder muscles, weak pelvic floor muscles, enlargement of the prostate (in men), or surgery. The following factors increase your risk for developing this condition: older age, obesity, and childbirth, menopause, neurological diseases, and chronic coughing. There are several types of urinary incontinence. They include urge incontinence, stress incontinence, overflow incontinence, and functional incontinence. This condition is usually treated first with lifestyle and behavioral changes, such as quitting smoking, eating a healthier diet, and doing regular pelvic floor exercises. Other treatment options include medicines, bulking agents, medical devices, electrical nerve stimulation, or surgery. This information is not intended to replace advice given to you by your health care provider. Make sure you discuss any questions you have with your health care provider. Document Released: 10/18/2005 Document Revised: 09/20/2018 Document Reviewed: 12/20/2017 [employer] Patient Education 2020 [employer]. Follow Up Care 01/24/2022 09:45:35 With:MARTY BETANCOURT, Trung Frost, URL Address: [facility] [address] [place] [address] [phone] When: Unknown Comments:w/ urodynamics [facility] [place] 01-23-2022 Hospital Discharge instructions Patient Education 01/23/2022 13:27:02 Benign Prostatic Hyperplasia Benign Prostatic Hyperplasia Benign prostatic hyperplasia (BPH) is an enlarged prostate gland that is caused by the normal aging process and not by cancer. The prostate is a walnut-sized gland that is involved in the production of semen. It is located in front of the rectum and below the bladder. The bladder stores urine and the urethra is the tube that carries the urine out of the body. The prostate may get bigger as a man gets older. An enlarged prostate can press on the urethra. This can make it harder to pass urine. The build-up of urine in the bladder can cause infection. Back pressure and infection may progress to bladder damage and kidney (renal) failure. What are the causes? This condition is part of a normal aging process. However, not all men develop problems from this condition. If the prostate enlarges away from the urethra, urine flow will not be blocked. If it enlarges toward the urethra and compresses it, there will be problems passing urine. What increases the risk? This condition is more likely to develop in men over the age of 50 years. What are the signs or symptoms? Symptoms of this condition include: Getting up often during the night to urinate. Needing to urinate frequently during the day. Difficulty starting urine flow. Decrease in size and strength of your urine stream. Leaking (dribbling) after urinating. Inability to pass urine. This needs immediate treatment. Inability to completely empty your bladder. Pain when you pass urine. This is more common if there is also an infection. Urinary tract infection (UTI). How is this diagnosed? This condition is diagnosed based on your medical history, a physical exam, and your symptoms. Tests will also be done, such as: A post-void bladder scan. This measures any amount of urine that may remain in your bladder after you finish urinating. A digital rectal exam. In a rectal exam, your health care provider checks your prostate by putting a lubricated, gloved finger into your rectum to feel the back of your prostate gland. This exam detects the size of your gland and any abnormal lumps or growths. An exam of your urine (urinalysis). A prostate specific antigen (PSA) screening. This is a blood test used to screen for prostate cancer. An ultrasound. This test uses sound waves to electronically produce a picture of your prostate gland. Your health care provider may refer you to a specialist in kidney and prostate diseases (urologist). How is this treated? Once symptoms begin, your health care provider will monitor your condition (active surveillance or watchful waiting). Treatment for this condition will depend on the severity of your condition. Treatment may include: Observation and yearly exams. This may be the only treatment needed if your condition and symptoms are mild. Medicines to relieve your symptoms, including: ?Medicines to shrink the prostate. ?Medicines to relax the muscle of the prostate. Surgery in severe cases. Surgery may include: ?Prostatectomy. In this procedure, the prostate tissue is removed completely through an open incision or with a laparoscope or robotics. ?Transurethral resection of the prostate (TURP). In this procedure, a tool is inserted through the opening at the tip of the penis (urethra). It is used to cut away tissue of the inner core of the prostate. The pieces are removed through the same opening of the penis. This removes the blockage. ?Transurethral incision (TUIP). In this procedure, small cuts are made in the prostate. This lessens the prostate's pressure on the urethra. ?Transurethral microwave thermotherapy (TUMT). This procedure uses microwaves to create heat. The heat destroys and removes a small amount of prostate tissue. ?Transurethral needle ablation (TUNA). This procedure uses radio frequencies to destroy and remove a small amount of prostate tissue. ?Interstitial laser coagulation (ILC). This procedure uses a laser to destroy and remove a small amount of prostate tissue. ?Transurethral electrovaporization (TUVP). This procedure uses electrodes to destroy and remove a small amount of prostate tissue. ?Prostatic urethral lift. This procedure inserts an implant to push the lobes of the prostate away from the urethra. Follow these instructions at home: Take qrip-uiy-qppojyw and prescription medicines only as told by your health care provider. Monitor your symptoms for any changes. Contact your health care provider with any changes. Avoid drinking large amounts of liquid before going to bed or out in public. Avoid or reduce how much caffeine or alcohol you drink. Give yourself time when you urinate. Keep all follow-up visits as told by your health care provider. This is important. Contact a health care provider if: You have unexplained back pain. Your symptoms do not get better with treatment. You develop side effects from the medicine you are taking. Your urine becomes very dark or has a bad smell. Your lower abdomen becomes distended and you have trouble passing your urine. Get help right away if: You have a fever or chills. You suddenly cannot urinate. You feel lightheaded, or very dizzy, or you faint. There are large amounts of blood or clots in the urine. Your urinary problems become hard to manage. You develop moderate to severe low back or flank pain. The flank is the side of your body between the ribs and the hip. These symptoms may represent a serious problem that is an emergency. Do not wait to see if the symptoms will go away. Get medical help right away. Call your local emergency services (911 in the [place] Do not drive yourself to the hospital. Summary Benign prostatic hyperplasia (BPH) is an enlarged prostate that is caused by the normal aging process and not by cancer. An enlarged prostate can press on the urethra. This can make it hard to pass urine. This condition is part of a normal aging process and is more likely to develop in men over the age of 50 years. Get help right away if you suddenly cannot urinate. This information is not intended to replace advice given to you by your health care provider. Make sure you discuss any questions you have with your health care provider. Document Released: 09/10/2006 Document Revised: 08/05/2019 Document Reviewed: 10/15/2017 [employer] Patient Education 2020 [employer]. Follow Up Care 12/20/2021 10:58:17 With:MARTY BETANCOURT, Trung Frost, URL Address: [facility] [address] [place] [address]- When: Unknown [facility] 09-24-2021 History of Present illness Narrative Assessment:1. Hypertension-above target3. Lexiscan Myoview September 2021-normal patient with hypertension at that time as well3. Abnormalities in thyroid function, on levothyroxine.4.Hyperlipidemia-on statin therapy5.BPH-on medications6. Left frontoparietal stroke7. Echocardiogram November 2019-LVEF 55% normal LV wall thickness normal left atrial size negative bubble study mild aortic regurgitation mild mitral regurgitation trivial tricuspid regurgitation unable to estimate RV systolic pressure. Left atrial volume index was reported to be 41 mL/m which actually would suggest left atrial enlargement. Normal IVC diameter and inspiratory collapse8. Paroxysmal atrial fibrillation with rapid ventricular rate based on loop recorder interrogation report from July 2022. Patient does not have much in the way of symptoms. -[facility] 250 DO Work Phone: 11-23-2019 History of Present illness Narrative Mr. Wilcox is a 75-year-old male seen back today for follow-up on his implanted loop recorder. He was seen initially as a consult requested by neurology. He was admitted to [facility] in [place] in November 2019 with an acute stroke. There was no etiology determined for this and therefore there was consideration that he may be having intermittent paroxysmal atrial fibrillation. There was a suggestion that he have a implanted loop recorder and this was done in March 2020. Today he has no complaints. Device clinic follow-ups are reviewed. At this time there is no suggestion that he is having episodes of atrial fibrillation. Clinically he has no complaints of palpitations no chest pain seems to be stable from cardiac perspective. [facility] 250 DO Work Phone: 11-23-2019 History of Present illness Narrative Patient is new to this provider. Per Dr. Reyes's prior notes:Mr. Wilcox is a 75-year-old male seen back today for follow-up on his implanted loop recorder. He was seen initially as a consult requested by neurology. He was admitted to [facility] in [place] in November 2019 with an acute stroke. There was no etiology determined for this and therefore there was consideration that he may be having intermittent paroxysmal atrial fibrillation. There was a suggestion that he have a implanted loop recorder and this was done in March 2020. Today he has no complaints. Device clinic follow-ups are reviewed. At this time there is no suggestion that he is having episodes of atrial fibrillation. Clinically he has no complaints of palpitations no chest pain seems to be stable from cardiac perspective.Was recently seen by Loulou Arreguin and I have reviewed Loulou's notes.Reports no chest pressure tightness or heaviness. Occasional dizziness and unsteady gait, related to previous stroke. Compliant with medicationsBlood pressure however elevated 160/82.Blood pressure also elevated during Lexiscan Myoview in September 2021. Perfusion imaging was normal and LV ejection fraction was normalPatient reports that his blood pressure is frequently lower than that seen in office today.Assessment:1. Hypertension-above target3. Lexiscan Myoview September 2021-normal patient with hypertension at that time as well3. Abnormalities in thyroid function, on levothyroxine.4.Hyperlipidemia-on statin therapy5.BPH-on medications6. Left frontoparietal strokeRecommendations:1. Check orthostatics2. Patient to continue to keep track of blood pressures3. Follow-up in about 6 to 8 weeks to reassess adequacy of blood pressure management.4. Lipid profile prior to next visit restart done in the recent past5. If blood pressure is suboptimally controlled, doxazosin was refilled medications for him in view of his BPH. [facility] [employer] DO Work Phone: Chief complaint Narrative - Reported NEIL WILCOX is being seen for Discuss progress. [facility] DO Work Phone: Evaluation + Plan note Future Appointments Appointment Date:01/24/2022 09:30:00 AM Scheduled Provider: Location:[facility] Appointment Type:Urology FT Appointment Date:09/04/2022 08:45:00 AM Scheduled Provider:Trung FERGUSON MD Location:[facility] Appointment Type:URO Office Visit [facility] Evaluation + Plan note Future Appointments Appointment Date:04/25/2022 12:15:00 PM Scheduled Provider: Location:[facility] Appointment Type:Urology CALL PAT FT Appointment Date:05/09/2022 11:00:00 AM Scheduled Provider: Location:[facility] Appointment Type:Urology FT Appointment Date:09/04/2022 08:45:00 AM Scheduled Provider:Trung FERGUSON MD Location:[facility] Appointment Type:URO Office Visit [facility] Evaluation + Plan note Future Appointments Appointment Date:09/04/2022 08:45:00 AM Scheduled Provider:[facility]USON [facility] Office Visit [facility] Evaluation + Plan note Future Appointments Appointment Date:09/29/2022 08:45:00 AM Scheduled Provider:Trung FERGUSON MD Location:[facility] Appointment Type:URO Office Visit [facility] Evaluation + Plan note Future Appointments Appointment Date:01/01/2023 11:30:00 AM Scheduled Provider:Tr[facility]ERGUSON [facility] Office Visit [facility] Evaluation + Plan note Future Appointments Appointment Date:01/01/2023 11:30:00 AM Scheduled Provider:Trung FERGUSON MD Location:[facility] Appointment Type:URO Office Visit Diagnostic Tests PendingUrine Culture 10/17/22 [facility] Evaluation + Plan note Future Appointments Appointment Date:11/06/2022 09:00:00 AM Scheduled Provider: Location:[facility] Appointment Type:URO Nurse Visit Appointment Date:01/01/2023 11:30:00 AM Scheduled Provider:Trung FERGUSON MD [facility] Office Visit [facility] Evaluation + Plan note Future Appointments Appointment Date:07/09/2023 10:30:00 AM Scheduled Provider:Trung FERGUSON MD [facility] Type:[facility] Office Visit [facility] Evaluation + Plan note Future Appointments Appointment Date:04/03/2023 09:00:00 AM Scheduled Provider:CHARLOTTE BAKER PA-C Location:[facility] Appointment Type:URO Office Visit Appointment Date:07/09/2023 10:30:00 AM Scheduled Provider:Trung FERGUSON MD Location:[facility] Appointment Type:URO Office Visit [facility] Evaluation + Plan note Future Appointments Appointment Date:11/12/2023 11:15:00 AM Scheduled Provider:rTung FERGUSON MD [facility] Type:[facility]O Office Visit [facility] Evaluation + Plan note Future Appointments Appointment Date:06/16/2024 01:15:00 PM Scheduled Provider:Trung FERGUSON MD Location:[facility] Appointment Type:URO Office Visit [facility] Evaluation note No Assessments Infor mation Available [facility] Evaluation note No assessment inform ation available [facility] Evaluation note Diagnosis Paroxysmal atrial fibrillation (CMS/HCC)- Primary Atrial fibrillation Atrial fibrillation (CMS/HCC)- Primary Atrial fibrillation Atrial fibrillation (CMS/HCC) Atrial fibrillation documented in this encounter [facility] Work Phone: Evaluation note* Diagnosis Atrial fibrillation (CMS/HCC)- Primary Atrial fibrillation Atrial fibrillation (CMS/HCC) Atrial fibrillation Chronic atrial fibrillation, unspecified (CMS/HCC) 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 documented in this encounter [facility] Work Phone: Evaluation note* Diagnosis Unspecified mood (affective) disorder (CMS/HCC)- Primary Paroxysmal atrial fibrillation (CMS/HCC) Atrial fibrillation Former smoker Personal history of tobacco use, presenting hazards to health Encounter for pre-operative cardiovascular clearance Presence of Watchman left atrial appendage closure device Paroxysmal atrial fibrillation with RVR (CMS/HCC) Mixed hyperlipidemia Primary hypertension Unspecified essential hypertension Pain in joint of left shoulder documented in this encounter [facility] Work Phone: Evaluation note* Diagnosis Atrial fibrillation, unspecified type (CMS/HCC) documented in this encounter [facility] Work Phone: History of Present illness Narrative* The patient states he has been generally stable since the last visit. Comorbid Illnesses: hypertension. * Symptoms: denies chest pain at rest, denies exertional chest pain, denies dyspnea, worsened fatigue, worsened exercise intolerance, denies palpitations, denies edema, denies orthopnea, denies dizziness and denies orthostatic dizziness. * Disease Monitoring: -[facility]Kayode Laguerre DO Work Phone: History of Present illness Narrative* Patient presents for blood pressure follow-up. Accompanied by to the office. Did not bring in medications. The list suggest that he is taking doxazosin 4 mg daily. Home blood pressure readings are actually slightly higher than what we get in the office today. Patient says his prostate issues have improved on this medication. * Towards the end of the interview reports that Eliquis is too expensive and patient has not been taking it. Once again reiterated the importance of bringing in the medication bottles at every visit. * The importance of Eliquis was rediscussed. This patient does not have symptoms of atrial fibrillation, it is being picked up on his loop recorder. * We talked about the options to include warfarin, or try for an alternate agent such as Xarelto is more cost effective, prior authorization, stop anticoagulation and just use aspirin. He understands that aspirin by itself is not protective to the same extent that anticoagulation needs. They will think about this, and will follow up with Loulou Arreguin in the near future, to reassess adequacy of bloodpressure management, and decide about the anticoagulation of choice. * I will plan on seeing him back in about 6 months. * Assessment: * 1. Hypertension-above target * 3. Lexiscan Myoview September 2021-normal patient with hypertension at that time as well * 3. 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 * 4.Hyperlipidemia-on statin therapy * 5.BPH-on medications * 6. Left frontoparietal stroke * 7. Echocardiogram November 2019-LVEF 55% normal LV wall thickness normal left atrial size negative bubble study mild aortic regurgitation mild mitral regurgitation trivial tricuspid regurgitation unableto estimate RV systolic pressure. Left atrial volume index was reported to be 41 mL/m which actually would suggest left atrial enlargement. Normal IVC diameter and inspiratory collapse * 8. Paroxysmal atrial fibrillation with rapid ventricular rate based on loop recorder interrogation report from July 2022. Patient does not have much in the way of symptoms. * 9. Not taking Eliquis at this time because cost is prohibitive. * Recommendations: * Options are to switch to warfarin, he is Xarelto is more cost effective, opted out of anticoagulation and stay on aspirin-the latter is not a great option in my opinion. Rationale was discussed patient and to discuss further, check with insurance, and follow-up with Loulou Arreguin in the near future to establish anticoagulation practice. [facility] DO Work Phone: History of Present illness Narrative* Patient presents for blood pressure follow-up. Accompanied by to the office. Did not bring in medications. The list suggest that he is taking doxazosin 4 mg daily. Home blood pressure readings are actually slightly higher than what we get in the office today. Patient says his prostate issues have improved on this medication. * Towards the end of the interview reports that Eliquis is too expensive and patient has not been taking it. Once again reiterated the importance of bringing in the medication bottles at every visit. * The importance of Eliquis was rediscussed. This patient does not have symptoms of atrial fibrillation, it is being picked up on his loop recorder. * We talked about the options to include warfarin, or try for an alternate agent such as Xarelto is more cost effective, prior authorization, stop anticoagulation and just use aspirin. He understands that aspirin by itself is not protective to the same extent that anticoagulation needs. They will think about this, and will follow up with Loulou Arreguin in the near future, to reassess adequacy of bloodpressure management, and decide about the anticoagulation of choice. * I will plan on seeing him back in about 6 months. * Assessment: * 1. Hypertension-above target * 3. Lexiscan Myoview September 2021-normal patient with hypertension at that time as well * 3. 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 * 4.Hyperlipidemia-on statin therapy * 5.BPH-on medications * 6. Left frontoparietal stroke * 7. Echocardiogram November 2019-LVEF 55% normal LV wall thickness normal left atrial size negative bubble study mild aortic regurgitation mild mitral regurgitation trivial tricuspid regurgitation unableto estimate RV systolic pressure. Left atrial volume index was reported to be 41 mL/m which actually would suggest left atrial enlargement. Normal IVC diameter and inspiratory collapse * 8. Paroxysmal atrial fibrillation with rapid ventricular rate based on loop recorder interrogation report from July 2022. Patient does not have much in the way of symptoms. * 9. Not taking Eliquis at this time because cost is prohibitive. * Recommendations: * Options are to switch to warfarin, he is Xarelto is more cost effective, opted out of anticoagulation and stay on aspirin-the latter is not a great option in my opinion. Rationale was discussed patient and to discuss further, check with insurance, and follow-up with Louloutonja Arreguin in the near future to establish anticoagulation practice. [facility] DO Work Phone: History of Present illness Narrative* The patient states he has been generally doing well since the last visit. Comorbid Illnesses: hypertension. * Symptoms: denies chest pain at rest, denies exertional chest pain, denies dyspnea, denies fatigue, denies exercise intolerance, denies palpitations, stable dizziness and stable orthostatic dizziness. * Associated symptoms: no syncope. * His symptoms do not limit his activities. * Disease Monitoring: The patient has had a stable weight. * Medications: the patient is adherent with his medication regimen. He denies medication side effects. [facility] DO Work Phone: History of Present illness Narrative* The patient states he has been generally doing well since the last visit. Comorbid Illnesses: hypertension. * Symptoms: denies chest pain at rest, denies exertional chest pain, denies dyspnea, denies fatigue, denies exercise intolerance, denies palpitations, stable dizziness and stable orthostatic dizziness. * Associated symptoms: no syncope. * His symptoms do not limit his activities. * Disease Monitoring: The patient has had a stable weight. * Medications: the patient is adherent with his medication regimen. He denies medication side effects. [facility] DO Work Phone: Hospital course Narrative No data available for this section [facility] Discharge instructions No data available for this section [facility] No data available for this section [facility] reason for referral (narrative)* Consultation (Routine) - Authorized Specialty Diagnoses / Procedures Referred By Contac t Referred To Contact Cardiology Diagnoses Paroxysmal atrial fibrillation (CMS/HCC) Procedures Follow Up In Cardiology Za Hernández MD [address] [facility] [address] [place] [address] Za Hernández MD [address] [facility] [address] [place] [address] Referral ID Status Reason Start Date Expiration Date V isits Requested Visits Authorized [id number] Authorized 10/22/2023 10/21/2024 1 1 * Consultation (Routine) - Authorized Specialty Diagnoses / Procedures Referred By Contac t Referred To Contact Cardiology Diagnoses Paroxysmal atrial fibrillation (CMS/HCC) Procedures Follow Up In Cardiology Za Hernández MD [address] [facility] [address] [place] [address] Loulou Arreguin, MATHEMATICS PROFESSOR-BUTTON MAKER AND INSTALLER [address] [facility] [address], [address] [address] Referral ID Status Reason Start Date Expiration Date V isits Requested Visits Authorized [id number] Authorized 10/22/2023 10/21/2024 1 1 [facility] Work Phone: Reason for Referral Status Reason Specialty Diagnoses / Procedures Referred By Contact Referred To Contact Not Required - [facility] Radiology Diagnoses 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) Procedures CT HEAD WO CONTRAST Ul Shalom Graham MD [address] [facility] [address] [place] [address] Specialty Diagnoses / Procedures Referred By Contac t Referred To Contact Radiology Diagnoses Atrial fibrillation, unspecified type (CMS/HCC) Procedures CT watchman full [place] [address] [address] [place] [id number] Referral ID Status Reason Start Date Expiration Date Visits Requested Visits Authorized [id number] Authorized Perform Procedure 11/01/2023 10/31/2024 1 1 Assessments Diagnosis 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) Advance Directives No Advanced Directives Records FoundDocuments on File Type Date 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 Advance Directives and Living Will Power of Animal Geneticist Latest Code Status on File Code Status Date Activated Date Inactivated Comments Full Code 12/21/2019 9:20 PM 12/22/2019 7:58 PM Advance Directive Response Recorded Date/ Time Advance Directives No October 30, 2018 10:33am Documents on File Type Date 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 ACP-Advance Directive ACP-Power of Animal Geneticist Latest Code Status on File Code Status Date Activated Date Inactivated Comments Full Code 12/21/2019 9:20 PM 12/22/2019 7:58 PM Advance Directive Response Recorded Date/ Time Advance Directives No October 30, 2018 11:33am Latest Code Status on File Code Status Date Activated Date Inactivated Comments Full Code 08/28/2023 10:29 AM Question Answer Comments Plan of Care: Code Status Discussion Completed Decision Maker: Patient Code Status History Code Status Date Activated Date Inactivated Comments Full Code 08/28/2023 10:22 AM 08/28/2023 10:29 AM Question Answer Comments Plan of Care: Code Status Discussion Completed Decision Maker: Patient Latest Code Status on File Code Status Date Activated Date Inactivated Comments Full Code 08/28/2023 10:29 AM Question Answer Comments Plan of Care: Code Status Discussion Completed Decision Maker: Patient Code Status History Code Status Date Activated Date Inactivated Comments Full Code 08/28/2023 10:22 AM 08/28/2023 10:29 AM Question Answer Comments Plan of Care: Code Status Discussion Completed Decision Maker: Patient Summary Purpose Family History No Family History Records Found Chief Complaint and Reason for Visit Chief Complaint Cerebral Infarction Cerebral Infarction Cerebral Infarction Chief Complaint Cerebral Infarction Cerebral Infarction Chief Complaint Cerebral Infarction Chief Complaint afib afib Chief Complaint afib Chief Complaint stroke I10 E03.9 E78.5 Chief Complaint stroke Chief Complaint * I am doing ok * NEIL WILCOX is being seen for hypertension. * Patient is ambulatory with steady gait. * Last evaluated in clinic by Dr. Wise Jul 2021. At that time, BP was increased. He has not monitored at home. * Compared to last cardiovascular evaluation, patient reports doing ok. * Patient denies any hospitalizations or significant changes to interval medical history since last office follow-up. * Patient attends to own ADLs and functional ADLs. 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 * Reports getting tired more easily, change in exercise capacity. Progressing over last year. * No exertional chest pain. * Overall change in functional capacity. NEIL WILCOX is being seen for a 9 month follow-up of.NEIL WILCOX is being seen for a 9 month follow-up of.NEIL WILCOX is being seen for hypertension.NEIL WILCOX is being seen for hypertension.NEIL WILCOX is being seen for hypertension.NEIL WILCOX is being seen for a 1 month follow-up of.NEIL WILCOX is being seen for a 1 month follow-up of.* One week f/u medication reconciliation. * NEIL WILCOX is being seen for a 1 week follow-up of a routine medication evaluation. * One week f/u medication reconciliation. * NEIL WILCOX is being seen for a 1 week follow-up of a routine medication evaluation. * Patient presents to the office ambulatory steady gait, is accompanied by . * Evaluated by Dr. Hernández last week and presents today to discuss anticoagulation and verify medication bottles. * brought all medication bottles, list is reflective of everything that they have the patient openly admits to sometimes I miss things . * At visit with Dr. Hernández they verbalized concerns regarding the cost of Entresto. They were to evaluate Xarelto coverage or consider transition to Coumadin. Patient presents today where he has a bottle of Eliquis filled October 04, 2022. He reports that the pharmacy reduce the cost . I am not sure if they had a 30-day free supply or if he had new insurance coverage and was not in the donut hole. The patient and remain unclear. They did not complete patient assistance forms, I provided themwith new ones today. * In layman terms, discussed increased stroke risk and need for anticoagulation. CHADS VASc 5 with 5-8% annual stroke risk. * Although extremely pleasant, patient appears to have either neurocognitive decline or very low health literacy. The purpose of today's visit was to secure affordable anticoagulation. The patient reports he will contact the pharmacy to see the cost of Eliquis moving forward. In the meantime, I will h miguel nursing staff contact pharmacy to verify. * If anticoagulation continues to be challenging may need to consider left atrial appendage occlusivedevice. * Otherwise, there have been no significant changes to her overall cardiovascular status since last evaluation. * Eliquis 5 mg twice daily age 77, creatinine 1.08. NEIL WILCOX is being seen for a 6 month follow-up of.NEIL WILCOX is being seen for a 6 month follow-up of.NEIL WILCOX is being seen for a 3 month follow-up of. Additional Source Comments Reason for Visit (unrecogniz ed section and content) Status Reason Specialty Diagnoses / Procedures Referred By Contact Referred To Contact Not Required - [facility] Radiology Diagnoses 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) Procedures CT HEAD WO CONTRAST Ul Shalom Graham MD [address] [address] Reason Comments laao Specialty Diagnoses / Procedures Referred By Contac t Referred To Contact Diagnoses Atrial fibrillation (CMS/HCC) Atrial fibrillation (CMS/HCC) [I48.91] Procedures [place] PERQ CLSR TCAT L ATR APNDGE W/ENDOCARDIAL IMPLNT WV PERQ CLSR TCAT L ATR APNDGE W/ENDOCARDIAL IMPLNT LAAO (Left Atrial Appendage [place]clusion) [place] [address] [place] [address] [place] [address] [address] [place] [address] Referral ID Status Reason Start Date Expiration Date Visits Re quested Visits Authorized [id number] 1 1 Reason Comments Follow-up Watchman follow up Specialty Diagnoses / Procedures Referred By Romelia louis Referred To Contact Radiology Diagnoses Atrial fibrillation, unspecified type (CMS/HCC) Procedures [place] [address] [place] [address] Referral ID Status Reason Start Date Expiration Date Visits Requested Visits Authorized [id number] Authorized Perform Procedure 11/01/2023 10/31/2024 1 1 (unrecognized sect ion and content) No Status Records FoundNo Status Records FoundNo Status Records FoundNo Status Records FoundNo Status Records FoundNo Status Records FoundNo Status Records FoundNo Status Records FoundNo Status Records FoundNo Status Records FoundNo Status Records FoundNo Status Records FoundNo Status Records FoundNo Status Records FoundNo Status Records Found INFORMATION SOURCE (unrecogn ized section and content) DATE CREATED AUTHOR 10/14/2020 [facility] DATE CREATED AUTHOR AUTHOR'S ORGANIZ ATION 04/23/2021 [facility] DATE CREATED AUTHOR AUTHOR'S ORGANIZ ATION 10/04/2021 [facility] DATE CREATED AUTHOR AUTHOR'S ORGANIZ ATION 01/24/2023 [facility] DATE CREATED AUTHOR AUTHOR'S ORGANIZ ATION 06/15/2023 [facility] DATE CREATED AUTHOR AUTHOR'S ORGANIZ ATION 08/05/2023 [facility] DATE CREATED AUTHOR AUTHOR'S ORGANIZ ATION 08/14/2023 [facility] DATE CREATED AUTHOR AUTHOR'S ORGANIZ ATION 09/02/2023 [facility] DATE CREATED AUTHOR AUTHOR'S ORGANIZ ATION 09/09/2023 [facility] DATE CREATED AUTHOR AUTHOR'S ORGANIZ ATION 09/10/2023 [facility] DATE CREATED AUTHOR AUTHOR'S ORGANIZ ATION 10/24/2023 [facility] DATE CREATED AUTHOR AUTHOR'S ORGANIZ ATION 11/21/2023 [facility] DATE CREATED AUTHOR AUTHOR'S ORGANIZ ATION 12/04/2023 [facility] DATE CREATED AUTHOR AUTHOR'S ORGANIZ ATION 01/03/2024 [facility] DATE CREATED AUTHOR AUTHOR'S ORGANIZ ATION 01/16/2024 [facility] Goals (unrecognized section and content) Goals may be documented in a n alternate section No data available for this section No data available for this section No data available for this section No data available for this section No data available for this section No data available for this section No data available for this section No data available for this section No data available for this sectionGoals may be documented in an alternate section No data available for this section No data available for this sectionGoals may be documented in an alternate sectionGoals may be documented in an alternate section No data available for this sectionGoals may be documented in an alternate sectionGoals may be documented in an alternate section No data available for this sectionGoals may be documented in an alternate sectionGoals may be documented in an alternate section No data available for this section Care Team (unrecognized sect ion and content) Team Status: Active Member Role Status Dates Sam Cooney DO Primary Care Provider Active Team Status: Inactive Member Role Status Dates Sam Cooney DO Primary Care Provider Active Za Hernández MD Attending Provider Active Brake Lining Curer Relationship Specialty Start Date End Date Sam CooneyDO [address] [place] [address] PCP - General 09/24/19 Brake Lining Curer Relationship Specialty Start Date End Date Sam Cooney DO [address] [place] [address] PCP - General 09/24/19 Brake Lining Curer Relationship Specialty Start Date End Date Sam Cooney DO [address] [place] [address] PCP - General 09/24/19 Brake Lining Curer Relationship Specialty Start Date End Date Sam Cooney MD [address] [place] [address] PCP - General Family Medicine 08/13/23 Brake Lining Curer Relationship Specialty Start Date End Date Sam Cooney [place] [address] [place] [address] PCP - General 09/24/19 Scheduled Active and Recently Administ ered Medications (unrecognized section and content) Medication Order 08/26/2023 08/27/2023 08/28/2023 aspirin chewable tablet 324 mg (COMPLETED) 324 mg, oral, Once, On Sun08/28/23 at 1030, For 1 dose, Preprocedure 1048 (Given - Provid er: Emerson Mcpherson RN) aspirin EC tablet 81 mg 81 mg, oral, Daily, First dose on Sun08/29/23 at 0900, Phase II/On Unit, Do not crush, chew, or split. ceFAZolin in dextrose (iso-os) (Ancef) IVPB 2 g 2 g, intravenous, Administer over 30 Minutes, Once, On Sun08/28/23 at 1030, For 1 dose, Preprocedure, Administer within 60 minutes prior to incision. premix bag, Dosing of this medication varies based on severity of illness. Does this patient have sepsis or concern for sepsis (probable or documented infection plus systemic manifestations of infection)? No, Suspected Indication (Select all that apply): Surgical Prophylaxis 0 (Due) clopidogrel (Plavix) tablet 75 mg 75 mg, oral, Daily, First dose on Sun08/29/23 at 0900, For 365 days, Phase II/On Unit docusate sodium (Colace) capsule 100 mg 100 mg, oral, 2 times daily, First dose on Sun08/28/23 at 1030, Phase II/On Unit, Bowel Regimen - for prevention of constipation Hold for loose stools 1029 (Due)2100 (Due) pantoprazole (ProtoNix) EC tablet 40 mg(Linked Group 1) 40 mg, oral, Daily before breakfast, First dose on Sun08/29/23 at 0700, Phase II/On Unit, Do not crush, chew, or split. pantoprazole (ProtoNix) injection 40 mg(Linked Group 1) 40 mg, intravenous, Administer over 2 Minutes, Daily before breakfast, First dose on Sun08/29/23 at 0700, Phase II/On Unit, Give if unable to take by mouth. Reconstitute with 10 mL sodium chloride 0.9% for injection. Push over 2 minutes. Continuous Medication Order 08/26/2023 08/27/2023 08/28/2023 lactated Ringer's infusion 75 mL/hr, intravenous, Continuous, Starting on Sun08/28/23 at 1030, Preprocedure 1030 (Due)1120 (New Bag - Provider: Gordon Zambrano RN) PRN Medication Order 08/26/2023 08/27/2023 08/28/2023 acetaminophen (Tylenol) oral liquid 650 mg(Linked Group 2) 650 mg, oral, Every 6 hours PRN, pain mild (1-3), first line, Starting on Sun08/28/23 at 1029, Phase II/On Unit, Give oral liquid if patient prefers or per feeding tube if present. If inadequate response within 60 minutes, proceed to next-line agent for same PRN reason or contact provider if no further options ordered. acetaminophen (Tylenol) suppository 650 mg(Linked Group 2) 650 mg, rectal, Every 6 hours PRN, pain mild (1-3), first line, Starting on Sun08/28/23 at 1029, Phase II/On Unit, Give rectally if unable to administer by mouth or feeding tube. If inadequate response within 60 minutes, proceed to next-line agent for same PRN reason or contact provider if no further options ordered., If ordered PRN for pain, nurse is permitted to administer this medication for higher pain scores based on patient preference? Yes acetaminophen (Tylenol) tablet 650 mg(Linked Group 2) 650 mg, oral, Every 6 hours PRN, pain mild (1-3), first line, Starting on Sun08/28/23 at 1029, Phase II/On Unit, If inadequate response within 60 minutes, proceed to next-line agent for same PRN reason or contact provider if no further options ordered., If ordered PRN for pain, nurse is permitted to administer this medication for higher pain scores based on patient preference? Yes ceFAZolin (Ancef) IV in dextrose 5% (COMPLETED) Administer over 30 Minutes, Continuous PRN, Starting on Sun08/28/23 at 1120, Intraprocedure 1120 (New Bag - Prov ider: oGrdon Zambrano RN) clopidogrel (Plavix) tablet (CANCELED) As needed, Starting on Sun08/28/23 at 1218, Intraprocedure 1218 (Given - Provid er: Kala Canseco RN) fentaNYL PF (Sublimaze) injection (CANCELED) As needed, Starting on Sun08/28/23 at 1127, Intraprocedure 1127 (Given - Provid er: Gordon Zambrano RN) heparin 1,000 unit/mL injection (CANCELED) As needed, Starting on Sun08/28/23 at 1137, Intraprocedure 1137 (Given - Provid er: Gordon Zambrano RN)1159 (Given - Provider: Kala Canseco RN) iohexol (OMNIPaque) 350 mg iodine/mL solution (CANCELED) As needed, Starting on Sun08/28/23 at 1220, Intraprocedure 1220 (Given - Provid er: Ryan Cobb MD) lidocaine (Xylocaine) 20 mg/mL (2 %) injection (CANCELED) As needed, Starting on Sun08/28/23 at 1131, Intraprocedure 1131 (Given - Provid er: Adam Benedict MD - Comment: right groin) midazolam (Versed) injection (CANCELED) As needed, Starting on Sun08/28/23 at 1127, Intraprocedure 1127 (Given - Provid er: Gordon Zambrano RN) ondansetron (Zofran) injection 4 mg(Linked Group 3) 4 mg, intravenous, Every 8 hours PRN, nausea/vomiting, first line, Starting on Sun08/28/23 at 1029, Phase II/On Unit, 1st Line. Give IV if patient is unable to take orally. If inadequate response within 60 minutes, proceed to next-line agent for same PRN reason or contact provider if no further options ordered. When administering via IV Push, administer over 3-5 minutes. ondansetron ODT (Zofran-ODT) disintegrating tablet 4 mg(Linked Group 3) 4 mg, oral, Every 8 hours PRN, nausea/vomiting, first line, Starting on Sun08/28/23 at 1029, Phase II/On Unit, 1st Line. Patient should allow tablet to dissolve on tongue. Do not remove from blister pack until just before administering. If inadequate response within 60 minutes, proceed to next-line agent for same PRN reason or contact provider if no further options ordered. protamine injection (COMPLETED) Continuous PRN, Starting on Sun08/28/23 at 1217, Intraprocedure 1217 (New [facility] ider: Kala Canseco RN) traMADol (Ultram) tablet 50 mg 50 mg, oral, Every 6 hours PRN, pain moderate (4-6), first line, Starting on Sun08/28/23 at 1029, Phase II/On Unit, If ordered PRN for pain, nurse is permitted to administer this medication for higher pain scores based on patient preference? Yes Linked Groups Order Group 1: pantoprazole (ProtoNix) EC tablet 40 mgJump to med 40 mg, oral, Daily before breakfast, First dose on Sun08/29/23 at 0700, Phase II/On Unit
Do not crush, chew, or split.
Or pantoprazole (ProtoNix) injection 40 mgJump to med 40 mg, intravenous, Administer over 2 Minutes, Daily before breakfast, First dose on Sun08/29/23 at 0700, Phase II/On Unit
Give if unable to take by mouth. Reconstitute with 10 mL sodium chloride 0.9% for injection. Push over 2 minutes.
Group 2: acetaminophen (Tylenol) tablet 650 mgJump to med 650 mg, oral, Every 6 hours PRN, pain mild (1-3), first line, Starting on Sun08/28/23 at 1029, Phase II/On Unit
If inadequate response within 60 minutes, proceed to next-line agent for same PRN reason or contact provider if no further options ordered.
If ordered PRN for pain, nurse is permitted to administer this medication for higher pain scores based on patient preference? Yes Or acetaminophen (Tylenol) oral liquid 650 mgJump to med 650 mg, oral, Every 6 hours PRN, pain mild (1-3), first line, Starting on Sun08/28/23 at 1029, Phase II/On Unit
Give oral liquid if patient prefers or per feeding tube if present. If inadequate response within 60 minutes, proceed to next-line agent for same PRN reason or contact provider if no further options ordered.
Or acetaminophen (Tylenol) suppository 650 mgJump to med 650 mg, rectal, Every 6 hours PRN, pain mild (1-3), first line, Starting on Sun08/28/23 at 1029, Phase II/On Unit
Give rectally if unable to administer by mouth or feeding tube. If inadequate response within 60 minutes, proceed to next- line agent for same PRN reason or contact provider if no further options ordered.
If ordered PRN for pain, nurse is permitted to administer this medication for higher pain scores based on patient preference? Yes Group 3: ondansetron ODT (Zofran-ODT) disintegrating tablet 4 mgJump to med 4 mg, oral, Every 8 hours PRN, nausea/vomiting, first line, Starting on Sun08/28/23 at 1029, Phase II/On Unit
1st Line. Patient should allow tablet to dissolve on tongue. Do not remove from blister pack until just before administering. If inadequate response within 60 minutes, proceed to next-line agent for same PRN reason or contact provider if no further options ordered.
Or ondansetron (Zofran) injection 4 mgJump to med 4 mg, intravenous, Every 8 hours PRN, nausea/vomiting, first line, Starting on Sun08/28/23 at 1029, Phase II/On Unit
1st Line. Give IV if patient is unable to take orally. If inadequate response within 60 minutes, proceed to next-line agent for same PRN reason or contact provider if no further options ordered. When administering via IV Push, administer over 3-5 minutes.
FOR RECORDS PERTAINING TO PATIENTS WHO ARE OR HAVE BEEN ENROLLED IN A CHEMICAL DEPENDENCY/SUBSTANCEABUSE PROGRAM, SOME INFORMATION MAY BE OMITTED. This clinical summary was aggregated from multiple sources. Caution should be exercised in using it in the provision of clinical care. This summary normalizes information from multiple sources, and as a consequence, information in this document may materially change the coding, format and clinical context of patient data. In addition, data may be omitted in some cases. CLINICAL DECISIONS SHOULD BE BASED ON THE PRIMARY CLINICAL RECORDS. [facility] [employer] [facility]. provides no warranty or guarantee of the accuracy or completeness of information in this document.
--- NOTE | 2024-01-26 20:44 | CT_ITS ---
[place] [id number] Patient Name: NEIL MARCELO MRN: [id number] date: 1945 Sex: M Assigned Patient Location: ER Current Patient Location: Accession/Order Number: [id number] Exam Date: 01/26/2024 21:02 Report Date: 01/26/2024 21:59 At the request of: IVY SYLVESTER Procedure: CT lumbar spine wo con EXAM: CT lumbar spine wo con TECHNIQUE: Axial CT images were obtained through the lumbar spine along with sagittal and coronal reformatted images. Dose reduction techniques were achieved by using automated exposure control and/or adjustment of mA and/or kV according to patient size and/or use of iterative reconstruction technique. HISTORY: fall COMPARISON: CT scan 07/13/2023 FINDINGS: Bones: There is an old moderate wedge compression fracture of the L1 vertebral body which is stable. Mild superior and inferior endplate concavity of L4 is new from 07/13/2023 and appears acute with acute fracture line. There is no significant retropulsion of the posterior endplate at L4. Alignment: The alignment is anatomic. No acute subluxation. Arthritic changes: Mild degenerative endplate change of the lumbar spine. More moderate degenerative disc space narrowing and degenerative endplate change at L5-S1. Disc spaces: No gross disc herniation given limitation of CT scan. Soft tissues: No paraspinal hematoma. Large cysts of the right kidney. CT/CT lumbar spine wo con IMPRESSION: Acute appearing mild superior and inferior endplate compression deformities of the L4 vertebral body. No associated central canal or neural foraminal compromise. Electronically authenticated by: JACINTO TOSCANO Date: 01/26/2024 21:59
--- NOTE | 2024-01-26 20:44 | ECG_ITS ---
[facility] Test Date: 2024-01-26 Pat Name: NEIL MARCELO Department: Room: [facility] Gender: Male [employer]: : 1945 Requested By: [id number] Order Number: [id number] Reading MD: JAQUELINE BETTENCOURT Measurements Intervals [place] Rate: 94 P: 73 W[place]: 164 QRS: 27 QRSD: 98 T: 30 QT: 344 QTc: 396 Interpretive Statements Sinus rhythm with frequent PVCs Nonspecific ST/T wave changes Low voltage across the precordium Electronically Signed On 01-27-2024 10:56:33 EDT by JAQUELINE BETTENCOURT
[2024-01-26 21:00] LABS: Hemoglobin 7.5 g/dL (14.0-18.0); Mean Corpuscular HGB Conc 34.1 g/dL (29.9-35.2); Mean Corpuscular Hemoglobin 37.5 pg (25.9-34.0); Mean Platelet Volume 9.4 fL (9.5-13.5); Platelet Count 62 10^3/uL (150-450); Red Cell Distribution Width 13.5 % (11.0-15.0); White Blood Count 2.2 10^3/uL (4.0-11.0)
[2024-01-26 21:18] LABS: Lactate/Lactic Acid 2.1 mmol/L (0.4-2.0)
[2024-01-26 21:19] LABS: Alanine Aminotransferase 11 U/L (16-63); Albumin Globulin Ratio 0.4; Albumin Level 2.7 g/dL (3.4-5.0); Alkaline Phosphatase 71 U/L (46-116); Anion Gap 19.5; Aspartate Amino Transferase 20 U/L (15-37); BUN Creatinine Ratio 11.6; Bilirubin Total 0.9 mg/dL (0.2-1.0); Calcium 10.6 mg/dL (8.5-10.1); Carbon Dioxide 22.5 mmol/L (21.0-32.0); Chloride 96 mmol/L (98-107); Estimated GFR (African America 47 (>=60); Estimated GFR (Non-African Ame 39 (>=60); Globulin 6.9 g/dL; Glucose 126 mg/dL (74-106); Sodium 134 mmol/L (136-145); Total Protein 9.6 g/dL (6.4-8.2); Troponin I High Sensitivity 12.3 pg/mL (4.0-76.1)
[2024-01-26] MEDS: 0.9 % SODIUM CHLORIDE 1,000 ML 100 ML IV (21:29)
[2024-01-26 21:34] LABS: Eosinophils Absolute Manual 0.06 10^3/uL (0.00-0.70); Lymphocytes Absolute Manual 0.79 10^3/uL (1.20-3.80); Monocytes Absolute Manual 0.06 10^3/uL (0.30-0.80); Segmented Neut Absolute Manual 1.27 10^3/uL (1.4-6.5)
--- NOTE | 2024-01-26 22:00 | ED_ITS ---
HPI HPI - Fall General Chief Complaint: Fall Stated Complaint: LOWER BACK PAIN D/T FALL Time Seen by Provider: 01/26/24 20:12 Source: patient and family Mode of arrival: Wheelchair Limitations: physical limitation History of Present Illness HPI Narrative: 78-year-old male presents here with a chief complaint of fall. Patient has history of multiple falls at home with profound weakness at home. He has had increasing more falls and weakness per . Patient does see neurology. He has a history of dementia, Alzheimer's. He has been pleasantly confused but more alert tonight for me. states after falling on his buttock here today at home he did not want to get up and ambulate as he normally would complain of lower lumbar pain.Denies any loss of bowel or bladder function. She has not been ambulating well but they have been using a wheelchair at home because he has had increased urinary issues at home. He is scheduled to see a neurologist for questionable hydrocephalus on the of this month.Patient is pleasantly altered but does answer some questions with hesitation here today stating that are correct. He states that his back only is out hurts. He has no sign of head trauma upper or lower extremity pain or dislocations. Related Data Home Medications ?Medication ?Instructions ?Recorded ?Confirmed cyanocobalamin (vitamin B-12) 1,000 mcg PO DAILY 05/20/23 01/26/24 1,000 mcg tablet doxazosin 4 mg tablet 4 mg PO DAILY 05/20/23 01/26/24 finasteride 5 mg tablet 5 mg PO DAILY 05/20/23 01/26/24 folic acid 1 mg tablet 1 mg PO DAILY 05/20/23 01/26/24 metoprolol succinate 25 mg 25 mg PO DAILY 05/20/23 01/26/24 tablet,extended release 24 hr spironolactone 25 mg tablet 25 mg PO DAILY 05/20/23 01/26/24 levothyroxine 125 mcg tablet 125 mcg PO DAILY 07/13/23 01/26/24 loperamide 2 mg capsule 2 mg PO Q6H PRN loose stool 07/13/23 01/26/24 tolterodine 2 mg capsule,extended 2 mg PO Q24H 07/13/23 01/26/24 release 24 hr clopidogrel 75 mg tablet 75 mg PO DAILY 01/26/24 01/26/24 fluoxetine 40 mg capsule 40 mg PO DAILY 01/26/24 01/26/24 memantine 10 mg tablet 10 mg PO BID 01/26/24 01/26/24 aspirin 81 mg tablet,delayed mg 01/27/24 release atorvastatin 40 mg tablet mg 01/27/24 losartan 100 mg tablet mg 01/27/24 Allergies Allergy/AdvReac Type Severity Reaction Status Date / Time No Known Drug Allergies Allergy Verified 01/26/24 20:17 Opioid HPI Opioid Management Most Recent Pain and Opioid Data: Last Pain Scale 0 01/27/24 06:04 Last Pain Assessment 01/27/24 06:04 Last ORT Total Score 4 01/27/24 00:24 Last ORT Risk Category Moderate Risk 01/27/24 00:24 Review of Systems ROS Narrative All Systems are negative except as noted/marked.All systems reviewed and otherwise negative [facility] Medical History (Updated 01/26/24 @ 22:46 by Verenice Robles) Afib ?I48.91 - Unspecified atrial fibrillation (ICD-10) Recurrent cerebrovascular accidents (CVAs) ?I63.9 - Cerebral infarction, unspecified (ICD-10) NPH (normal pressure hydrocephalus) ?G91.2 - (Idiopathic) normal pressure hydrocephalus (ICD-10) Multiple falls ?R29.6 - Repeated falls (ICD-10) Head injury ?S09.90XA - Unspecified injury of head, initial encounter (ICD-10) Obstructive sleep apnea ?G47.33 - Obstructive sleep apnea (adult) (pediatric) (ICD-10) BPH (benign prostatic hyperplasia) ?N40.0 - Benign prostatic hyperplasia without lower urinary tract symptoms (ICD-10) Alzheimer disease ?G30.9 - Alzheimer's disease, unspecified (ICD-10) ?F02.80 - Dementia in other diseases classified elsewhere, unspecified severity, without behavioral disturbance, psychotic disturbance, mood disturbance, and anxiety (ICD-10) Vertigo ?R42 - Dizziness and giddiness (ICD-10) Hypertension ?I10 - Essential (primary) hypertension (ICD-10) Social History Smoking status: Never smoker Highest level of school completed/degree received: high school graduate Do you think of yourself as: straight/heterosexual Gender Identity: male Exam Narrative Exam Narrative: Nurses note and vital signs reviewed and patient is not hypoxic. General: The patient appears pleasantly confused. history of dementia Skin: Warm, dry, no pallor noted. There is no rash noted. Head: Normocephalic, atraumatic Eye: Normal conjunctiva, no drainage, EOMI. PERRL Ears, Nose, Mouth, and Throat: oral mucosa is moist. Nares patent. Mouth without vesicles. Ear canals patent. Tm's without Erythema Cardiovascular: Regular Rate and Rhythm Respiratory: Patient is in no distress, no accessory muscle use, lungs are clear to auscultation, no wheezing, rales or rhonchi Back: , lower lumbar tenderness, No ecchymosis, no step-offs, no CVA tenderness bilaterally to percussion. GI: Normal bowel sounds, no tenderness to palpation, no masses appreciated. No rebound, guarding, or rigidity noted. Musculoskeletal:generalized weakness, no acute swelling pitting edema noted Neurological: A&O x4, normal speech Psychiatric: Cooperative Constitutional Vital Signs, click to edit/add: Last Vital Signs Temp 98.1 F 01/27/24 04:00 Pulse 86 01/27/24 04:00 Resp 20 01/27/24 04:00 BP 137/74 01/27/24 04:00 Pulse Ox 96 01/27/24 04:00 O2 Del Method Room Air 01/27/24 04:00 Course Vital Signs Vital signs: Vital Signs Temperature 98 F 01/26/24 20:18 Pulse Rate 93 H 01/26/24 20:18 Respiratory Rate 18 01/26/24 20:18 Blood Pressure 118/75 01/26/24 20:18 Pulse Oximetry 97 01/26/24 20:18 Oxygen Delivery Method Room Air 01/26/24 20:18 Temperature 98.1 F 01/27/24 04:00 Pulse Rate 86 01/27/24 04:00 Respiratory Rate 20 01/27/24 04:00 Blood Pressure 137/74 01/27/24 04:00 Pulse Oximetry 96 01/27/24 04:00 Oxygen Delivery Method Room Air 01/27/24 04:00 MDM - Fall MDM Narrative Medical decision making narrative: 78-year-old male presents here with a chief complaint of fall. Patient has history of multiple falls at home with profound weakness at home. He has had increasing more falls and weakness per . Patient does see neurology. He has a history of dementia, Alzheimer's. He has been pleasantly confused but more alert tonight for me. states after falling on his buttock here today at home he did not want to get up and ambulate as he normally would complain of lower lumbar pain.Denies any loss of bowel or bladder function. She has not been ambulating well but they have been using a wheelchair at home because he has had increased urinary issues at home. He is scheduled to see a neurologist for questionable hydrocephalus on the of this month.Patient is pleasantly altered but does answer some questions with hesitation here today stating that are correct. He states that his back only is out hurts. He has no sign of head trauma upper or lower extremity pain or dislocations. Today for increased weakness and falls. He has a acute lumbar fracture from his fall today. He has no other pain or injuries. Patient is pleasantly demented and has a history of Alzheimer's. Patient also has a history of pancytopenia. CBC BMP are all within his norm limits for himself. I spoke to Regarding this patient's care she agrees for admission. Patient will be seen by physical therapy. I did speak at length to the about possible placement as he has had increased falls at home and causing danger to her and himself. and patient agree with plan of care at this time has been medicated here with just 2 mg of morphine for his pain. Pain has been controlled. Differential Diagnosis Differential diagnosis: Likely syncope and other (Fall, weakness, hyponatremia, back pain) Medical Records Attestation: I reviewed the patient's medical records. Lab Data Attestation: I reviewed the patient's lab results. Labs: Lab Results 01/26/24 Range/Units 20:54 WBC 2.2 L (4.0-11.0) 10^3/uL RBC 2.00 L (4.70-6.10) 10^6/uL Hgb 7.5 L (14.0-18.0) g/dL Hct 22.0 L* (42.0-54.0) % MCV 110.0 H (80.0-94.0) fL MCH 37.5 H (25.9-34.0) pg MCHC 34.1 (29.9-35.2) g/dL RDW 13.5 (11.0-15.0) % Plt Count 62 L (150-450) 10^3/uL MPV 9.4 L (9.5-13.5) fL Seg Neuts % (Manual) 58.0 Band Neutrophils % 0.0 (0-5) % Lymphocytes % (Manual) 36.0 (20.5-60.0) % Monocytes % (Manual) 3.0 (1.7-12.0) % Eosinophils % (Manual) 3.0 (0.9-7.0) % Basophils % (Manual) 0.0 L (0.2-2.0) % Neutrophils # (Manual) 1.27 L (1.4-6.5) 10^3/uL Band Neutrophils # 0.0 (0.0-0.3) 10^3/uL Lymphocytes # (Manual) 0.79 L (1.20-3.80) 10^3/uL Abs Atypical Lymphs Man 0.00 Monocytes # (Manual) 0.06 L (0.30-0.80) 10^3/uL Eosinophils # (Manual) 0.06 (0.00-0.70) 10^3/uL Basophils # (Manual) 0.00 (0.00-0.10) 10^3/uL Sodium 134 L (136-145) mmol/L Potassium 4.0 (3.5-5.1) mmol/L Chloride 96 L (98-107) mmol/L Carbon Dioxide 22.5 (21.0-32.0) mmol/L Anion Gap 19.5 BUN 20.0 H (7.0-18.0) mg/dL Creatinine 1.73 H (0.70-1.30) mg/dL Est GFR ( Amer) 47 L (>=60) Est GFR (Non-Af Amer) 39 L (>=60) BUN/Creatinine Ratio 11.6 Glucose 126 H (74-106) mg/dL Lactate 2.1 H (0.4-2.0) mmol/L Calcium 10.6 H (8.5-10.1) mg/dL Total Bilirubin 0.9 (0.2-1.0) mg/dL AST 20 (15-37) U/L ALT 11 L (16-63) U/L Alkaline Phosphatase 71 (46-116) U/L Troponin I High Sens 12.3 (4.0-76.1) pg/mL Total Protein 9.6 H (6.4-8.2) g/dL Albumin 2.7 L (3.4-5.0) g/dL Globulin 6.9 g/dL Albumin/Globulin Ratio 0.[address] lumbar: Radiologist's impression: ITS Impressions Lumbar Spine CT 01/26/24 20:44 IMPRESSION: Acute appearing mild superior and inferior endplate compression deformities of the L4 vertebral body. No associated central canal or neural foraminal compromise. Electronically authenticated by: JACINTO TOSCANO Date: 01/26/2024 21:59 ECG Data Interpretation: 2043 Sinus rhythm rate 94 bpm TX interval 164 ms QRS duration 88 ms PVCs noted, similar EKG other than PVCs compared to previous EKG on 07/13/2023 no STEMI Discharge Plan Discharge Chief Complaint: Fall Clinical Impression: Cytopenia, Closed lumbar fracture with cord injury, Dementia, Multiple falls Patient Disposition: Admitted As Inpatient Time of Disposition Decision: 22:45 Condition: Fair Discharge Date/Time: 01/26/24 22:59
[2024-01-26] MEDS: ONDANSETRON PF 4 MG/2 ML VIAL IV (22:46)
[2024-01-26] MEDS: MORPHINE SULFATE 2 MG/ML SYRINGE IV (22:46)
--- OUTSIDE RECORDS SUMMARY | 2024-01-26 23:05 | XMS_ITS | CCD ---
Author Organization [facility] Care Team Providers Care Song Writer Name Role Phone Kanab, Sam E Primary Care Provider [phone] Sam Cooney Primary Care Provider [phone] Erick Wise Attending Provider [phone] Ul Santos, Israr Attending Provider [phone] Eros Ellsworth E Primary Care Provider [phone] LESTER GAO Admitting Unavailable LESTER GAO Attending Unavailable BILLY VILLA Referring Unavailable CYNDY MADISON Consulting Unavailable BRISTOL, SAM E Primary Care Unavailable UL SANTOS, ISRAR Referring Unavailable BRISTOL, SAM E Primary Care Unavailable UL SANTOS, ISRAR Referring Unavailable BRISTOL, SAM E Primary Care Unavailable Sam Cooney Attending Provider [phone] Sam Cooney Primary Care Provider [phone] Erick Wise Attending Provider Sam Cooney Primary Care Provider [phone] Erick Wise Attending Provider [phone] Sam Cooney Attending Provider [phone] Kanab, Sam E Unavailable Unavailable Unavailable SAM COONEY Primary Care Physician [phone] Unavailable Unavailable DO Sam Cooney Primary Care Provider [phone] MD Za Hernández Attending Provider [phone] TRUNG RUGGIERO Consulting Unavailable MARTY Jiang, [...] Attending Unavailable BRISTOL, DR VARGAS Admitting Unavailable Kanab, DO Vargas Primary Care Provider MD Za Hernández Attending Provider PURNIMA DAVIDSON JR Primary Care Unavailable KYLEE ARREGUIN Attending Unavailable SHERLEY CHAVEZ Attending Unavailable Kanab, DO Vargas Primary Care Provider MD Za Hernández Attending Provider Sam Cooney DO Primary [facility] ider Eros, Dr. Sam Harrington Primary Care Unavailable ZA HERNÁNDEZ Attending Unavailable ZA HERNÁNDEZ Referring Unavailable Eros, Dr. Sam Harrington Primary Care Unavailable HERNÁNDEZ, ZA Attending Unavailable HERNÁNDEZ, ZA Referring Unavailable Eros, Dr. Sam Harrington Primary Care Unavailable HERNÁNDEZ, ZA Attending Unavailable HERNÁNDEZ, ZA Referring Unavailable Kanab, Dr. Sam Harrington Primary Care Unavailable Arreguin, MsDeidre Hurt Attending Dima Arreguin, Ms. Loulou Hurt Referring [facility] Cooney, Dr. Sam Harrington Primary Care Unavailable Arreguin, MsDeidre Hurt Attending Dima Arreguin, MsDeidre Hurt Referring Unavai lab Kanab, Dr. Sam Harrington Primary Care Unavailable Kanab, Dr. Sam Harrington Primary Care Unavailable Kanab, Dr. Sam Harrington Primary Care Unavailable Kanab, Dr. Sam Harrington Primary Care Unavailable BRISTOL, SAM HARRINGTON Primary Care Unav ailable RYAN COBB Admitting Unavailable RYAN COBB Attending Unavailable SAM COONEY Primary Care Unav ailable DO Sam Cooney Primary Care Provider MD Za Hernández Attending Provider [phone] Hernández, Za Admitting Unavailable Kanab, Ellsworth Primary Care Unavailable Hernández, Za Attending Unavailable Hernández, Za Admitting Unavailable Kanab, Ellsworth Primary Care Unavailable Hernández, Za Attending Unavailable Hernández, Za Admitting Unavailable Kanab, Ellsworth Primary Care Unavailable Hernández, Za Attending Unavailable Hernández, Za Admitting Unavailable Kanab, Sam Primary Care Unavailable Hernández, Za Attending Unavailable Hernández, Za Admitting Unavailable Kanab, Ellsworth Primary Care Unavailable Hernández, Za Attending Unavailable Hernández, Za Admitting Unavailable Kanab, Ellsworth Primary Care Unavailable Hernández, Za Attending Unavailable Kanab, Ellsworth Primary Care Unavailable Hernández, Za Attending Unavailable Ehrnández, Za Admitting Unavailable HERNÁNDEZ, ZA Attending Unavailable BRISTOL, SAM NUNES LEN Primary Care Unav ailable Sam Cooney MD Primary Care Provider [phone] GUNNAR SHAFFER DO Attending UnavailGUNNAR Melendrez DO [...] three times daily as needed for pain Prdtxmdbev-WIYX-Zzataazl 50-325-40 MG Or al Tablet TAKE 1 TABLET 3 TIMES DAILY NEEDED FOR PAIN. Quantity: 0 Refills: 0 Ordered: 18-Jul-2021 DO Start : 18-Jan-2021 Active Start: 05-19-2019 butalbital-sadie taminophen-caffeine (FIORICET, ESGIC) 50-325-40 MG per tablet Take by mouth 0 05/19/2019 Active Start: 05-19-2019 Butalbital-Sadie taminophen-Caff Active 1 TAB PO As Directed May 18, 2019 11:00pm [id number] 200 actuat albuterol 0.09 mg/actuat metered dose [...] by mouth every four hours as needed eeaeidoljr-xsgvrmo-glpdaqwt (Fiorinal) 50-325-40 mg capsule Take 1 capsule [...] 0 Active take 1 capsule by mo [facility] once daily before breakfast Levothyroxine Sodium 125 [...] hydrochloride 5 mg oral tablet (10 sources) G-kyrchr-K-aspartate Receptor Antagonist Start: 08-06-2023 take 1 tablet [...] Twice daily April 06, 2020 11:00pm thyroid (fpc) 90 mg oral tablet (20 sources) Start: 02-27-2020 take 1 tablet by mouth once daily in the morning Thyroid (Pork) ([place] Thyroid) 90 mg tablet Active 90 MG PO Every morning February 26, 2020 11:00pm Start: 12-29-2019 [place] Thyroid Oral, Daily, Refills(s) 0 Start Date: [...] 02/05/2023 08/28/2023 Discontinued (Entered in Error) amoxicillin ([place] xil) 500 mg capsule Take 1 capsule [...] procedure, # 2 tab(s), Refills(s) 0, Pharmacy: [facility]/pharmacy #[id number], 175, cm, 01/23/22 13:07:00 EDT, Height/Length [...] Apply as needed prior to self dilation, [facility]/pharmacy #[id number], 175, cm, 11/03/22 13:03:00 EST, Height/Length Dosing, 82.8, kg, 11/03/22 13:03:00 EST, Weight Dosing Start Date: 12/01/22 Stop Date: 12/01/22 Status: Ordered Start: 12-01-2022 End: 12-01-2022 Glydo 2% topical gel with ap plicator 11 mL 0.2 gm, 10 mL, Topical, As Directed, 30 mL, Refill(s) 6, Apply as needed prior to self dilation, [facility]/pharmacy #[id number], 175, cm, 11/03/22 13:03:00 EST, Height/Length Dosing, 82.8, kg, 11/03/22 13:03:00 EST, Weight Dosing Start Date: 12/01/22 Stop Date: 12/01/22 Status: Ordered Start: 12-01-2022 End: 12-01-2022 Glydo 2% topical gel with ap plicator 11 mL 0.2 gm, 10 mL, Topical, As Directed, 30 mL, Refill(s) 6, Apply as needed prior to self dilation, [facility]/pharmacy #[id number], 175, cm, 11/03/22 13:03:00 EST, Height/Length Dosing, 82.8, kg, 11/03/22 13:03:00 EST, Weight Dosing Start Date: 12/01/22 Stop Date: 12/01/22 Status: Ordered Start: 12-01-2022 End: 12-01-2022 Glydo 2% topical gel with ap plicator 11 mL 0.2 gm, 10 mL, Topical, As Directed, 30 mL, Refill(s) 6, Apply as needed prior to self dilation, [facility]/pharmacy #[id number], 175, cm, 11/03/22 13:03:00 EST, Height/Length [...] dinnertime., # 60 cap(s), Refills(s) 11, Pharmacy: [facility]/pharmacy #[id number], 175, cm, 12/03/23 15:27:00 EDT, Height/Length [...] day, # 30 cap(s), Refills(s) 6, Pharmacy: [facility]/pharmacy #[id number], 175, cm, 01/23/22 13:07:00 EDT, Height/Length Dosing, 83, kg, 01/23/22 13:07:00 EDT, Weight Dosing Start Date: 01/23/22 Status: Ordered Start: 01-23-2022 take 1 capsule by mouth once d aily tolterodine 4 mg Cap-ER 4 mg = 1 cap(s), Oral, Daily, # 30 cap(s), Refills(s) 6, Pharmacy: [facility]/pharmacy #[id number], 175, cm, 01/23/22 13:07:00 EDT, Height/Length Dosing, 83, kg, 01/23/22 13:07:00 EDT, Weight Dosing Start Date: 01/23/22 Status: Ordered Start: 09-27-2020 take 1 capsule by mouth once d aily tolterodine 2 mg Cap-ER 2 mg = 1 cap(s), Oral, Daily, # 30 cap(s), Refills(s) 11, Pharmacy: [facility]/pharmacy #[id number], 175, cm, 07/09/23 11:06:00 EDT, Height/Length [...] Onset: 06-15-2022 11-06-2022 Other aftercare (1 source) longterm (current) use of anticoagulants; Translations: [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 COMPARISON: CT dated 08/28/2023 ACCESSION NUMBER(S): [id number] ORDERING CLINICIAN: RYAN COBB TECHNIQUE: Using multi [...] Carlitos Aguilera 12/28/2023 11:32 AM Dictation workstation: [id number] [facility] No Panel Informationon 12-27 1. Status post [...] Carlitos Aguilera 12/28/2023 11:32 AM Dictation workstation: [id number] Interpreted By: Carlitos Aguilera, STUDY: CT WATCHMAN FULL CONTRAST; 12/28/2023 10:40 am INDICATION: Signs/Symptoms:A-fib, Post-Watchman. COMPARISON: CT dated 08/28/2023 ACCESSION NUMBER(S): [id number] ORDERING CLINICIAN: RYAN COBB TECHNIQUE: Using multi [...] Post-Watchman. COMPARISON: CT dated 08/28/2023 ACCESSION NUMBER(S): [id number] ORDERING CLINICIAN: RYAN COBB TECHNIQUE: Using multi [...] Carlitos Aguilera 12/28/2023 11:32 AM Dictation workstation: [id number] [facility] Work Phone: Radiology Study observation (narrative) [facility] Work Phone: No Panel InformationOrdered By: Carlitos Aguilera on 12-28-2023 [facility] Work Phone: Ambulatory Visit Summaryon 0 [...] spironolactone (spironolactone 25 mg Tab) thyroid desiccated ([place] Thyroid) Procedures Performed Urethral dilatation (11/03/2022), TURP [...] [facility] [address] , [place] [address]- [id number] Medications What How Much When Instructions Changed tolterodine (tolterodine 2 mg Cap-ER) 1 Capsules By Mouth As Directed Take one cap in the morning and one at dinnertime. Pickup at [facility]/pharmacy #[id number] Unchanged APAP/ butalbital/ caffeine (APAP/ butalbital/ caffeine [...] if questions or concerns Unchanged thyroid desiccated ([place] Thyroid) By Mouth Every day Contact prescribing physician if questions or concerns Pharmacy Information [facility] #[id number]: [address] [place], [place] [phone] Allergies No Known Allergies Problems Ongoing - Any problem that you are currently receiving treatment for. BPH with urinary obstruction Enuresis Hesitancy Hypertension Incomplete bladder emptying Intertrigo mild NV (myocardial infarction) Nocturia Protein in urine Proteinuria [...] especially fr (more content not included)... Normal [facility] Patient Educationon 12-03-19 Patient Education Obstetrics and [...] health care provider. General instructions ? Take uacn-syy-vemlmsf and prescription medicines only as told by [...] monitor yo (more content not included)... Normal [facility] Urology Office/Clinic Noteon 12-03-2023 Urology Office/Clinic Note [...] and history for this patient from Dr. Freguson. I have reviewed and verified the staff [...] morning and night). New rx sent to [facility]. -Double void maneuvers 2. BPH with urinary [...] [facility] [address], [place] [address] [id number] Additional Instructions: 6 mos (increase med dosage) [...] Hesitancy Hypertension Incomplete bladder emptying Intertrigo mild NV (myocardial infarction) Nocturia Protein in urine Proteinuria Smoker Urethral meatal stenosis Urge incontinence Urinary incontinence without sensory awareness Urinary retention Historical No qualifying data Procedure/Surgical History Urethral dilatation (11/03/2022), TURP - Transurethral resection of prostate (08/31/2022), Cystoscopy (01/24/2022), Colonoscopy, Shoulder replacement. Medications APAP/butalbital/caffei ne 325 mg-50 mg-40 mg Tab [place] Thyroid, Oral, Daily atorvastatin, Oral, Daily Butapap [...] lifetime) Tobac (more content not included)... Normal [facility] Comment on above: Result Comment: Elec tronically Signed By: Trung FERGUSON MD\.br\Date and Time Signed: 12/03/23 16:17 EDT\.br\Electronically Co-Signed By: Marcela Lake\.br\Date and Time Co-Signed: 12/03/23 16:16 EDT Melter Loader Details- Texton 11-20-2023 Melter Loader Details- Text Melter Loader Details Entered On: 11/20/2023 9:57 EST Performed On: 11/20/2023 9:56 EST by Sahra Lizarraga RN Melter Loader Details Transport Mode Order Detail EV : [...] : No Pacemaker Order Detail : 0 Melter Loader Details Review Status : Initial Review Nurse Collects Blood Specimens : No Sahra Lizarraga RN - 11/20/2023 9:56 EST Normal [facility] Utilization Review Noteon Utilization Review Note EXT REC DAY 0. C ASE CANCELLED DUE TO LOW H&H. Normal [facility] Utilization Review Noteon Utilization Review Note Reg as EXT REC, no documents. NOT IPO Still no information from preaccess yet. Still no information from preaccess yet. Approved for outpatient per preaccess. Normal [facility] HEMOon 11-16-2023 Nucleated RBC 0 /100WBC Normal [facility] Comment on above: Performed By: #### 1 [id number], [id number] ####[facility] [address] [place] [address] Medical Director: Eh Gould MD MAN DIFFon 11-16-[address] 0.12 x1000 Normal 0.00-0.70 [facility] Comment on above: Performed By: #### 1 , [id number] ####[facility] [address]ubimb[address]18 [place] [address] Medical Director: Eh Gould MD Absolute Eos Ct 0.07 x1000 Normal 0.00-0.50 [facility] Comment on above: Performed By: #### 1 , 632243 ####[facility] Paervrae63971 [place] [address] Medical Director: Eh Gould MD Absolute Lymph Ct 1.10 x1000 Low 1.20-4.80 [facility] Comment on above: Performed By: #### 1 54195, 212302 ####[facility] [address]xyr[address] [place] [address] Medical Director: Eh Gould MD Absolute Neutrophil Ct 1.22 x1000 Low 1.40-8.80 [facility] Comment on above: Performed By: #### 1 42851, 764693 ####[facility] [address]nsceb[address]60 [place] [address] Medical Director: Eh Gould MD Absolute Seg Ct 1.10 x1000 Low 1.40-8.80 [facility] Comment on above: Performed By: #### 1 67403, 906647 ####[facility] Vvbwghgz25022 [place] [address] Medical Director: Eh Gould MD Band form neutrophils/100 WBC (Bld) 5 % Normal [facility] Comment on above: Performed By: #### 1 94517, 517350 ####[facility] [address]zxbdt87364 [place] [address] Medical Director: Eh Gould MD Eosinophils/100 WBC (Bld) 3 % Normal [facility] Comment on above: Performed By: #### 1 , 398074 ####[facility] Julqztzo12509 [place] [address] Medical Director: Eh Gould MD Lymphocytes/100 WBC (Bld) 46 % Normal [facility] Comment on above: Performed By: #### 1 , 369350 ####[facility] [address]zzmwh[address]132 [place] [address] Medical Director: Eh Gould MD Macrocytosis Moderate Normal [facility] Comment on above: Performed By: #### 1 , 582961 ####[facility] [address]pwxwapl[address]19 [place] [address] Medical Director: Eh Gould MD Segmented neutrophils/100 WBC (Bld) 46 % Normal [facility] Comment on above: Performed By: #### 1 59833, 221618 ####[facility] [address]ighvhx28313 [place] [address] Medical Director: Eh Gould MD ABORHon 11-15-2023 ABORH Interpretation Positive Normal [facility] Comment on above: Performed By: #### C D:[id number], CD:[id number] #### [facility] [address] [place] [address] Cotton Opener: Eh Gould MD Patient History Check Previous Hx Normal [facility] Comment on above: Performed By: #### C D:[id number], CD:[id number] #### [facility] [address] [place] [address] Cotton Opener: Eh Gould MD VS 0.8% a cells 0 Normal [facility] Comment on above: Performed By: #### C D:[id number], CD:[id number] #### [facility] [address] [place] [address] Cotton Opener: Eh Gould MD VS 0.8% b cells 3+ Normal [facility] Comment on above: Performed By: #### C D:[id number], CD:[id number] #### [facility] [address] [place] [address] Cotton Opener: Eh Gould MD VS Anti-A Unit 4+ Normal [facility] Comment on above: Performed By: #### C D:[id number], CD:[id number] #### [facility] [address] [place] [address] Cotton Opener: Eh Gould MD VS Anti-B Unit 0 Normal [facility] Comment on above: Performed By: #### C D:[id number], CD:[id number] #### [facility] [address] [place] [address] Cotton Opener: Eh Golud MD VS Anti-D Unit 4+ Normal [facility] Comment on above: Performed By: #### C D:[id number], CD:[id number] #### [facility] [address] [place] [address] Cotton Opener: Eh Gould MD ABSCon 11-15-2023 ABSC Final Interp Negative Normal [facility] Comment on above: Performed By: #### C D:[id number], CD:[id number] #### [facility] [address] [place] [address] Cotton Opener: Eh Gould MD Pt Hx check done? Yes Normal [facility] Comment on above: Performed By: #### C D:[id number], CD:[id number] #### [facility] [address] [place] [address] Cotton Opener: Eh Gould MD VS SCI Gel 0 Normal [facility] Comment on above: Performed By: #### C D:[id number], CD:[id number] #### [facility] [address] [place] [address] Cotton Opener: Eh Gould MD VS SCII Gel 0 [facility] Comment on above: Performed By: #### C D:[id number], CD:[id number] #### [facility] [address] [place] [address] Cotton Opener: Eh Gould MD DVT/VTE Risk Factor-Texton 0 [...] Price RN - 11/15/2023 13:48 EST Normal [facility] HEMOon 11-15-2023 DIFF? Yes Normal [facility] Comment on above: Performed By: #### 1 90887, 776586 ####[facility] [address] [place] [address] [id number] Medical Director: Eh Gould MD DxH Actions See Notes Abnormal [facility] Comment on above: Result Comment: Scan for RBC Morphology Scan Slide. Perform manual diff if needed. SNV Performed By: #### 1 , 086837 ####[facility] [address] [place] [address] Medical Director: Eh Gould MD Erythrocyte distribution width (RBC) [Ratio] 14.5 % Normal 11.5-14.5 [facility] Comment on above: Performed By: #### 1 , 805619 ####[facility] [address] [place] [address] Medical Director: Eh Gould MD Hematocrit (Bld) [Volume fraction] 25.3 % Low 41.0-52.0 [facility] Comment on above: Performed By: #### 1 , 111159 ####[facility] [address] [address] [facility] Director: Eh Gould MD Hemoglobin (Bld) [Mass/Vol] 8.7 g/dL Low 13.5-17.5 [facility] Comment on above: Performed By: #### 1 , 669333 ####[facility] [address] [place] [address] Medical Director: Eh Gould MD Instr WBC 2.4 Normal [facility] Comment on above: Performed By: #### 1 , 681878 ####[facility] [address] [place] [address] Medical Director: Eh Gould MD MCH (RBC) [Entitic mass] 38.3 pg High 27.0-34.0 [facility] Comment on above: Performed By: #### 1 , 047695 ####[facility] [address] [place] [address] Medical Director: Eh Gould MD MCHC (RBC) [Mass/Vol] 34.6 g/dL Normal 32.0-37.0 [facility] Comment on above: Performed By: #### 1 , 761960 ####[facility] [address] [place] [address] Medical Director: Eh Gould MD MCV (RBC) [Entitic vol] 110.6 fL High 80.0-100.0 [facility] Comment on above: Performed By: #### 1 , 362762 ####[facility] [address]pmqpl24[address] [place] [address] Medical Director: Eh Gould MD Platelet 142 x10 Low 150-450 [facility] Comment on above: Performed By: #### 1 , 767415 ####[facility] [address]yrro23137 [place] [address] Medical Director: Eh Gould MD Platelet mean volume (Bld) [Entitic vol] 6.4 fL Low 7.4-10.4 [facility] Comment on above: Performed By: #### 1 , 907284 ####[facility] [address]az[address] [place] [address] Medical Director: Eh Gould MD RBC 2.29 x10 Low 4.70-6.10 [facility] Comment on above: Result Comment: Note : RBC morphology is normal unless otherwise stated. Evaluation performed only if differential is requested. Performed By: #### 1 10526, 737044 ####[facility] [address]of44[address] [place] [address] Medical Director: Eh Gould MD WBC 2.4 x10 Low 4.5-11.0 [facility] Comment on above: Performed By: #### 1 50943, 750285 ####[facility] [address]fa[address] [place] [address] Medical Director: Eh Gould MD Preadmission Testing [...] conversation. LOW [facility] Normal [facility] Preadmission Testing Progress Note PREADMISSION TESTING (PAT) [...] must be reported to your surgeon. Normal [facility] UAon 11-15-2023 Appearance, U Clear Normal [facility] Comment on above: Performed By: #### 1 58899 #### [facility] [address] [place] [address] Cotton Opener: Eh Gould MD Bilirubin, U Negative Normal Negative [facility] Comment on above: Performed By: #### 1 76351 #### [facility] [address] [place] [address] Cotton Opener: Eh Gould MD Blood, U Small Abnormal Negative [facility] Comment on above: Performed By: #### 1 48052 #### [facility] [address] [place] [address] Cotton Opener: Eh Gould MD Color, U Yellow Normal [facility] Comment on above: Performed By: #### 1 93248 #### [facility] [address] [place] [address] Cotton Opener: Eh Gould MD Glucose Qual, U Negative Normal Negative [facility] Comment on above: Performed By: #### 1 59938 #### [facility] [address] [place] [address] Cotton Opener: Eh Gould MD Ketones, U Negative Normal Negative [facility] Comment on above: Performed By: #### 1 83893 #### [facility] [address] [place] [address] Cotton Opener: Eh Gould MD Leukocyte Esterase, U Negative Normal Negative [facility] Comment on above: Performed By: #### 1 18722 #### [facility] [address] [place] [address] Cotton Opener: Eh Gould MD Mucous, U Occasional Normal [facility] Comment on above: Performed By: #### 1 29437 #### [facility] [address] [place] [address] Cotton Opener: Eh Gould MD Nitrite, U Negative Normal Negative [facility] Comment on above: Performed By: #### 1 21264 #### [facility] [address] [place] [address] Cotton Opener: Eh Gould MD pH, U 5.0 Normal 4.5-8.0 [facility] Comment on above: Performed By: #### 1 70330 #### [facility] [address] [place] [address] Cotton Opener: Eh Gould MD Protein, U Negative Normal Negative [facility] Comment on above: Performed By: #### 1 98928 #### [facility] Services [address] [place] [address] Cotton Opener: Eh Gould MD RBC/HPF, U <1 Normal 0-3 [facility] Comment on above: Performed By: #### 1 84907 #### [facility] [address] [place] [address] 56993 Cotton Opener: Eh Gould MD Specific [place], U 1.014 Normal 1.001-1.[address] [facility] Comment on above: Performed By: #### 1 70724 #### [facility] [address] [place] [address] 72396 Cotton Opener: Eh Gould MD Squamous Epithelial Cells, U <1 Normal [facility] Comment on above: Performed By: #### 1 23017 #### [facility] [address] [place] [address] 53992 Cotton Opener: Eh Gould MD U MICRO Indicated Normal [facility] Comment on above: Performed By: #### 1 95970 #### [facility] [address] [place] [address] 60479 Cotton Opener: Eh Gould MD Urobilinogen Qual, U <2.0 mg/dl Normal <2.0 mg/dl [facility] Comment on above: Result Comment: EU/d l and mg/dl are equivalent units. Performed By: #### 1 03107 #### [facility] [address] [place] [address] 60270 Cotton Opener: Eh Gould MD WBC/HPF, U 2 #/HPF Normal 0-5 [facility] Comment on above: Performed By: #### 1 62997 #### [facility] [address] [place] [address] 25076 Cotton Opener: Eh Gould MD Preadmission Testing Progres s Noteon 11-14-2023 Preadmission Testing Progress Note Registration called P.A.T.,stating the pt. may not show and reschedule. Pt did not show for appointment. Called Dr. Shaffer's office. Spoke to Alexandra, she stated the CT foe watchman check is scheduled for the 20 of November and is needed for the clearance to be completed. Normal [facility] ABORHon 10-15-2023 ABORH CK Interp Positive Normal [facility] Comment on above: Performed By: #### C [id number], CD:[id number] #### [facility] [address] [place] [address] Cotton Opener: Eh Gould MD Anti-A recheck 4+ [facility] Comment on above: Performed By: #### C [id number], CD:[id number] #### [facility] [address] [place] [address] Cotton Opener: Eh Gould MD Anti-B recheck 0 [facility] Comment on above: Performed By: #### C D:[id number], CD:[id number] #### [facility] [address] [place] [address] Cotton Opener: Eh Gould MD Anti-D recheck 3+ [facility] Comment on above: Performed By: #### C [id number], CD:[id number] #### [facility] [address] [place] [address] Cotton Opener: Eh Gould MD Pathologist Reviewon 024 Diff [...] ruled out. Clinical correlation is recommended. Normal [facility] Comment on above: Order Comment: Added on by Discern Expert Rule. Result Comment: CAMILA ZEPEDA (Electronic Signature) Date Verified 10/15/23 Performed By: #### 9 409158, 172480, 2096371, 565775, 870259, 388737 ####[facility] Rmbnwtnc55442 [place] [address] Medical Director: Eh Gould MD [...] who stated they are in route to [facility] and delayed due to weather conditions. Patient [...] voice mail all available numbers for office, dental scheduler and PA. Left messages on voice mail [...] patient and and notify surgery scheduling. Normal [facility] Utilization Review Noteon Utilization Review Note Reg [...] SHOULDER REPLACEMENT CANCELED PER PREACCESS. CANCELLED. Normal [facility] ABORHon 10-12-2023 ABORH Interpretation Positive Normal [facility] Comment on above: Performed By: #### C D:[id number], CD:[id number] #### [facility] [address] [id number] Cotton Opener: Eh Gould MD Patient History Check No Previous Hx Normal [facility] Comment on above: Result Comment: 09/24 10:30 [id number] ABO Recheck to be ordered on admit. Surgery Date: 10/16/23 Performed By: #### C D:[id number], CD:[id number] #### [facility] [address] [place] [address] 22424 Cotton Opener: Eh Gould MD VS 0.8% a cells 0 Normal [facility] Comment on above: Performed By: #### C D:[id number], CD:[id number] #### [facility] [address] [place] [address] 17009 Cotton Opener: Eh Gould MD VS 0.8% b cells 3+ [facility] Comment on above: Performed By: #### C D:[id number], CD:[id number] #### [facility] [address] [place], [place] [address] Cotton Opener: Eh Gould MD VS Anti-A Unit 4+ [facility] Comment on above: Performed By: #### C D:[id number], CD:[id number] #### [facility] [address] [place] [address] 59618 Cotton Opener: Eh Gould MD VS Anti-B Unit 0 [facility] Comment on above: Performed By: #### C D:[id number], CD:[id number] #### [facility] [address] [place] [address] 45420 Cotton Opener: Eh Gould MD VS Anti-D Unit 4+ [facility] Comment on above: Performed By: #### C D:[id number], CD:[id number] #### [facility] [address] [place] [address] 76984 Cotton Opener: Eh Gould MD ABSCon 10-12-2023 ABSC Final Interp Negative Normal [facility] Comment on above: Performed By: #### C D:[id number], CD:[id number] ####[facility] [address]wz[address]4511 [place] [address] Medical Director: Eh Gould MD Pt Hx check done? Yes Normal [facility] Comment on above: Performed By: #### C D:[id number], CD:[id number] ####[facility] Ulqogvlx18164 [place] [address] Medical Director: Eh Gould MD VS SCI Gel 0 [facility] Comment on above: Performed By: #### C D:[id number], CD:[id number] ####[facility] Zqevfpzt77949 [place] [address] [facility] Director: Eh Gould MD VS SCII Gel 0 [facility] Comment on above: Performed By: #### C D:[id number], CD:[id number] ####[facility] [address] [address] Medical Director: Eh Gould MD APTTon 10-12-2023 aPTT Coag (Bld) [Time] 29.5 s Normal 27.0-38.0 [facility] Comment on above: Result Comment: APTT Interpretation: This test has not been validated to monitor heparin therapy. APTT test is used as an initial test for suspected bleeding disorder. Anti-Xa UFH test is used to monitor heparin therapy. Performed By: #### 9 118708, 719686, 8673943, 125223, 290103, 594482 ####[facility] Jgjyqwgd87725 [place] [address] Medical Director: Eh Gould MD AUTO DIFFon 10-12-2023 Baso Count 0.02 x1000 Normal 0.00-0.20 [facility] Comment on above: Performed By: #### 9 275821, 139205, 9867715, 261376, 362658, 521926 ####[facility] Qxnpawdb44163 [place], [place] [address]) [phone] Director: Eh Gould MD Basos % 0.8 % Normal [facility] Comment on above: Performed By: #### 9 497386, 820098, 9458222, 040668, 684971, 863583 ####[facility] Cfllxbwt71883 [place], [place] [address]) [phone] Director: Eh Gould MD Eos Count 0.21 x1000 Normal 0.00-0.50 [facility] Comment on above: Performed By: #### 9 262901, 098535, 1542169, 393058, 688643, 580825 ####[facility] Uaokjiig43318 [place], [place] [address]) [phone] Director: Eh Gould MD Eosinophils/100 WBC (Bld) 7.5 % Normal [facility] Comment on above: Performed By: #### 9 161514, 264747, 5625788, 859901, 773286, 610640 ####[facility] Vmdznjjl80868 [place], [place] [address]) [phone] Director: Eh Gould MD Lymph Count 1.03 x1000 Low 1.20-4.80 [facility] Comment on above: Performed By: #### 9 190565, 940122, 3533920, 521735, 840243, 738883 ####[facility] Vysjnbzg71077 [place] [address] Medical Director: Eh Gould MD Lymphocytes/100 WBC (Bld) 36.5 % Normal [facility] Comment on above: Performed By: #### 9 454871, 545175, 3475281, 680731, 133411, 340845 ####[facility] Rioindxq15573 [place] [address] Medical Director: Eh Gould MD Parker Count 0.08 x1000 Low 0.10-1.00 [facility] Comment on above: Performed By: #### 9 485261, 633094, 7724336, 091826, 392395, 550702 ####[facility] Xyyonpxr29932 [place] [address] Medical Director: Eh Gould MD Monocytes/100 WBC (Bld) 2.8 % Normal [facility] Comment on above: Performed By: #### 9 019880, 219156, 4952102, 912042, 306621, 677133 ####[facility] Yjsuemtg61252 [place] [address] Medical Director: Eh Gould MD Neutrophil Count (ANC) 1.48 x1000 Normal 1.40-8.80 [facility] Comment on above: Performed By: #### 9 371391, 603033, 4178095, 986220, 849608, 592756 ####[facility] Zuzvqksz67593 [place] [address] Medical Director: Eh Gould MD Neutrophils/100 WBC (Bld) 52.5 % Normal [facility] Comment on above: Performed By: #### 9 405204, 933042, 1820752, 082106, 859917, 808887 ####[facility] Tlxxhqbr50225 [place] [address] Medical Director: Eh Gould MD Red Blood Cell Morphology See Notes Abnormal [facility] Comment on above: Result Comment: Macr ocytosis 2+ Rouleaux 1+ Performed By: #### 9 546583, 093587, 4730378, 061876, 352698, 675245 ####[facility] Ggjnwhkr67985 [place] [address] Medical Director: Eh Gould MD Scan Differential Diff Scd Normal [facility] Comment on above: Result Comment: Slid e reviewed by technologist. Performed By: #### 9 151081, 961145, 9820622, 191095, 018762, 225078 ####[facility] Eqzynelu91020 [place], [place] [address]) [phone] Director: Eh Gould MD BASICMETAon 10-12-2023 Calcium [Mass/Vol] 10.1 mg/dL Normal 8.7-10.4 [facility] Comment on above: Performed By: #### 9 583187, 509301, 1561615, 244407, 390106, 258356 ####[facility] Dmoqgzor66905 [place], [place] [address]) [phone] Director: Eh Gould MD Chloride [Moles/Vol] 103 mmol/L Normal 98-[address] [facility] Comment on above: Performed By: #### 9 833418, 544947, 0709328, 072906, 714230, 808494 ####[facility] Ulzxrpdc20183 [place], [place] [address]) [phone] Director: Eh Gould MD CO2 [Moles/Vol] 27.0 mmol/L Normal 20.0-31.0 [facility] Comment on above: Performed By: #### 9 084801, 128408, 2743974, 771008, 321792, 383265 ####[facility] Ahrqkbhu88676 [place] [address] Medical Director: Eh Gould MD Creatinine [Mass/Vol] 1.2 mg/dL High 0.6-1.1 [facility] Comment on above: Performed By: #### 9 099469, 587069, 0266973, 078785, 990980, 347333 ####[facility] Eetbhomx39769 [place], [place] [address]) [phone] Director: Eh Gould MD GFR AA >60 Normal [facility] Comment on above: Result Comment: Afri can Bahraini GFR Calc Medical judgement is necessary to [...] for drug dosing. Performed By: #### 9 506422, 961909, 7258493, 934788, 812054, 393364 ####[facility] Fluublzi71250 [place] [address] Medical Director: Eh Gould MD Glomerular Filtration Rate 59 mL/min/1.73m? Normal [facility] Comment on above: Result Comment: Non- GFR [...] for drug dosing. Performed By: #### 9 615036, 587495, 6724755, 632232, 658787, 282435 ####[facility] Gwpzvico99699 [place] [address] Medical Director: Eh Gould MD Glucose [Mass/Vol] 111 mg/dL High 74-106 [facility] Comment on above: Performed By: #### 9 259929, 911253, 6076543, 745226, 624865, 347043 ####[facility] Taltjade57787 [place] [address] Medical Director: Eh Gould MD Osmolality [Osmolality] 281 mosm/kg Normal 275-295 [facility] Comment on above: Performed By: #### 9 057158, 631323, 0077700, 743925, 330723, 494480 ####[facility] Xqznider60770 [place] [address] Medical Director: Eh Gould MD Potassium [Moles/Vol] 4.0 mmol/L Normal 3.5-5.1 [facility] Comment on above: Performed By: #### 9 732672, 799182, 3467952, 530010, 390380, 628913 ####[facility] Udkeuhyo24379 [place] [address] Medical Director: Eh Gould MD Sodium [Moles/Vol] 140 mmol/L Normal 135-145 [facility] Comment on above: Performed By: #### 9 488423, 511668, 6233302, 199666, 411837, 848858 ####[facility] Uhwjvjif06670 [place] [address] Medical Director: Eh Gould MD Urea nitrogen [Mass/Vol] 16 mg/dL Normal 9-23 [facility] Comment on above: Result Comment: - Ve nipuncture should occur prior to N-Acetyl Cysteine (NAC) or Metamizole (Sulpyrine) administration due to the potential for falsely depressed results. - Blood samples from some patients with monoclonal gammopathies may produce falsely elevated results Performed By: #### 9 570666, 291521, 6047623, 072086, 765127, 928656 ####[facility] Nvmmuwqg59015 [place] [address] Medical Director: Eh Gould MD Urea nitrogen/Creatinine [Mass ratio] 13.3 mg/mg Normal [facility] Comment on above: Performed By: #### 9 646646, 120317, 9335491, 469257, 290583, 441177 ####[facility] Hrrcxyrv97100 [place] [address] Medical Director: Eh Gould MD HEMOon 10-12-2023 DIFF? No Normal [facility] Comment on above: Performed By: #### 9 667240, 424421, 6931446, 103156, 965733, 168577 ####[facility] Seetpfyl54385 [place], [place] [address]) [phone] Director: Eh Gould MD HEM PATH REVIEW See Diff Review Interp Normal [facility] Comment on above: Performed By: #### 9 420929, 619702, 2617730, 388758, 286333, 627744 ####[facility] Nfgozxaa03907 [place] [address] Medical Director: Eh Gould MD Nucleated RBC 0 /100WBC Normal [facility] Comment on above: Performed By: #### 9 709055, 423111, 6683290, 143437, 619176, 656015 ####[facility] Ivitwpht22440 [place], [place] [address]) [phone] Director: Eh Gould MD DxH Actions See Notes Abnormal [facility] Comment on above: Result Comment: Scan for RBC Morphology Scan Slide. Perform manual diff if needed. SNV Performed By: #### 9 017105, 236492, 1263092, 343757, 985429, 596663 ####[facility] Fwsxuczs44654 [place] [address] Medical Director: Eh Gould MD Erythrocyte distribution width (RBC) [Ratio] 13.5 % Normal 11.5-14.5 [facility] Comment on above: Performed By: #### 9 104990, 583542, 1002728, 763248, 132973, 647017 ####[facility] Afzxcylx64629 [place] [address] Medical Director: Eh Gould MD Hematocrit (Bld) [Volume fraction] 27.4 % Low 41.0-52.0 [facility] Comment on above: Performed By: #### 9 584229, 227415, 7450623, 963535, 339385, 797654 ####[facility] Szasbatb77536 [place] [address] Medical Director: Eh Gould MD Hemoglobin (Bld) [Mass/Vol] 9.4 g/dL Low 13.5-17.5 [facility] Comment on above: Performed By: #### 9 692609, 629185, 8893259, 861014, 335489, 428926 ####[facility] Eibfdoth56372 [place] [address] Medical Director: Eh Gould MD Instr WBC 2.8 Normal [facility] Comment on above: Performed By: #### 9 889300, 120269, 8879621, 484749, 385195, 330667 ####[facility] Dydpruex44019 [place] [address] Medical Director: Eh Gould MD MCH (RBC) [Entitic mass] 37.4 pg High 27.0-34.0 [facility] Comment on above: Performed By: #### 9 212262, 463342, 9395976, 298076, 464750, 191014 ####[facility] Zllucupm72880 [place] [address] Medical Director: Eh Gould MD MCHC (RBC) [Mass/Vol] 34.2 g/dL Normal 32.0-37.0 [facility] Comment on above: Performed By: #### 9 294831, 482316, 8074290, 192510, 554464, 580085 ####[facility] Nhvwsupa24761 [place] [address] Medical Director: Eh Gould MD MCV (RBC) [Entitic vol] 109.4 fL High 80.0-100.0 [facility] Comment on above: Performed By: #### 9 510122, 814671, 2607406, 158985, 325592, 912706 ####[facility] Xpubilqa70995 [place] [address] Medical Director: Eh Gould MD Platelet 165 x10 Normal 150-450 [facility] Comment on above: Performed By: #### 9 857828, 914385, 8412313, 056527, 444131, 679035 ####[facility] Yveizatl67559 [place], [place] [address]) [phone] Director: Eh Gould MD Platelet mean volume (Bld) [Entitic vol] 6.3 fL Low 7.4-10.4 [facility] Comment on above: Performed By: #### 9 175898, 762179, 1901277, 801271, 100868, 112124 ####[facility] Szzcisof28297 [place], [place] [address]) [phone] Director: Eh Gould MD RBC 2.51 x10 Low 4.70-6.10 [facility] Comment on above: Result Comment: Note : RBC morphology is normal unless otherwise stated. Evaluation performed only if differential is requested. Performed By: #### 9 234480, 490722, 3492564, 987275, 387490, 684411 ####[facility] Zbsytqxp21153 [place], [place] [address]) [phone] Director: Eh Gould MD WBC 2.8 x10 Low 4.5-11.0 [facility] Comment on above: Performed By: #### 9 418779, 804285, 3416053, 245224, 440868, 593757 ####[facility] Fhbdyqxt98208 [place], [place] [address]) [phone] Director: Eh Gould MD PT INRon 10-12-2023 INR Coag (PPP) [Relative time] 1.2 {INR} Normal [facility] Comment on above: Result Comment: INR Reference Range: Normal reference range for INR on patients not on anticoagulant therapy: 0.9-1.1 General therapeutic range for patients on anticoagulant therapy: 2.0-3.5 Performed By: #### 9 286761, 142624, 5475766, 407679, 651894, 943527 ####[facility] Jbegsdrd89181 [place] [address] Medical Director: Eh Gould MD Protime Patient 13.4 seconds High 9.8-12.8 [facility] Comment on above: Performed By: #### 9 924380, 871628, 7924354, 666277, 781218, 342115 ####[facility] Qqnuclrp05476 [place] [address] Medical Director: Eh Gould MD Preadmission Testing [...] surgeon. Simba TOLEDO, Dante Lanier on Normal [facility] UAon 10-12-2023 U MICRO Indicated Normal [facility] Comment on above: Performed By: #### 1 95361 #### [facility] [address] [place] [address] Cotton Opener: Eh Gould MD Appearance, U Clear Normal [facility] Comment on above: Performed By: #### 1 14912 #### [facility] [address] [place] [address] Cotton Opener: Eh Gould MD Bilirubin, U Negative Normal Negative [facility] Comment on above: Performed By: #### 1 40182 #### [facility] [address] [place] [address] Cotton Opener: hE Gould MD Blood, U Moderate Abnormal Negative [facility] Comment on above: Performed By: #### 1 16276 #### [facility] [address] [place] [address] Cotton Opener: Eh Gould MD Color, U Yellow Normal [facility] Comment on above: Performed By: #### 1 02788 #### [facility] [address] [place] [address] Cotton Opener: Eh Gould MD Glucose Qual, U Negative Normal Negative [facility] Comment on above: Performed By: #### 1 61224 #### [facility] [address] [place] [address] Cotton Opener: Eh Gould MD Hyaline Cast <1 Normal [facility] Comment on above: Performed By: #### 1 39118 #### [facility] [address] [place] [address] Cotton Opener: Eh Gould MD Ketones, U Negative Normal Negative [facility] Comment on above: Performed By: #### 1 34757 #### [facility] [address] [place] [address] Cotton Opener: Eh Gould MD Leukocyte Esterase, U Negative Normal Negative [facility] Comment on above: Performed By: #### 1 81828 #### [facility] [address] [place] [address] Cotton Opener: Eh Gould MD Mucous, U Occasional Normal [facility] Comment on above: Performed By: #### 1 23987 #### [facility] [address] [place] [address] Cotton Opener: Eh Gould MD Nitrite, U Negative Normal Negative [facility] Comment on above: Performed By: #### 1 13988 #### [facility] [address] [place] [address] Cotton Opener: Eh Gould MD pH, U 5.0 Normal 4.5-8.0 [facility] Comment on above: Performed By: #### 1 99169 #### [facility] [address] [place] [address] Cotton Opener: Eh Gould MD Protein, U Negative Normal Negative [facility] Comment on above: Performed By: #### 1 31082 #### [facility] [address] [place] [address] Cotton Opener: Eh Gould MD RBC/HPF, U 5 #/HPF High 0-3 [facility] Comment on above: Performed By: #### 1 11130 #### [facility] [address] [place] [address] Cotton Opener: Eh Gould MD Specific [place], U 1.016 Normal 1.001-1.[address] [facility] Comment on above: Performed By: #### 1 10135 #### [facility] [address] [place] [address] Cotton Opener: Eh Gould MD Urobilinogen Qual, U <2.0 mg/dl Normal <2.0 mg/dl [facility] Comment on above: Result Comment: EU/d l and mg/dl are equivalent units. Performed By: #### 1 19203 #### [facility] [address] [place] [address] Cotton Opener: Eh Gould MD WBC/HPF, U 7 #/HPF High 0-5 [facility] Comment on above: Performed By: #### 1 56471 #### [facility] [address] [place] [address] Cotton Opener: Eh Gould MD Activated clotting timeon 12 -05-2023 ACT Coag (Bld) 271 s High 89-169 [facility] Comment on above: Result Comment: Targ et ACT range will vary based on the patient population, clinical status, and surgical intervention occurring. Performed By: #### 3 184-9 #### JAVAD Stephenson ([id number]) [facility] ([facility]) [address] [place] [address] CT WATCHMAN FULL CONTRASTon 08-28-2023 CT WATCHMAN FULL CONTRAST Interpreted By: Purnima Lira, STUDY: CT WATCHMAN FULL CONTRAST; 08/28/2023 12:00 pm INDICATION: Signs/Symptoms:pre Watchman procedure SAME DAY CT. COMPARISON: None. ACCESSION NUMBER(S): [id number] ORDERING CLINICIAN: RYAN COBB TECHNIQUE: Using multi [...] Purnima Lira 09/06/2023 9:28 AM Dictation workstation: [id number] [facility] ECG 12-LEADon 08-28-2023 ECG 12-LEAD Ventricular Rate 63 Atrial Rate 63 P-R Interval 196 QRS Duration 86 Q-T Interval 402 QTC Calculation(Bazett) 411 P [place] 67 R [place] -1 T [place] 20 QRS Count 10 Q Onset 223 P Onset 125 P Offset 180 T Offset 424 QTC Fredericia 408 Diagnosis Normal sinus rhythm Inferior infarct Possible Anterior infarct Abnormal ECG Confirmed by Benny Obrien ([id number]) on 08/30/2023 3:59:32 PM Normal [facility] STRUCTURAL HEART PROCEDUREon 08-28-2023 STRUCTURAL HEART PROCEDURE [facility], Strategy Analyst, [address] [place] [address] Cardiovascular Catheterization Report Patient Name: NEIL WILCOX Performing Physician: [id number] Cobb MD Study Date: 08/28/2023 Verifying Physician: Archie Cobb MD MRN/PID: [id number] Premium Auditor/Co-scrub: Ordering Physician: [id number] RYAN COBB Date of 1945 Fellow: [id number] Adam Benedict /Age: years Gender: M Fellow: [...] ICE guidance, transseptal puncture was with a RVXcross ([employer]), accessing the left atrium. The transseptal tract was then dilated with a Watchman Double Curve access sheath and the ICE probe was advanced through the dilated tract into the left atrium. Next, a 6 [place] angled pigtail was advanced through the delivery [...] CPT Codes: Perc left atrial appendage closure (LAAC)-94958 [id number] Ryan Cobb MD Performing Physician Final Normal [facility] TRANSTHORACIC ECHO (TTE) MARITZA Epperson 08-28-2023 TRANSTHORACIC ECHO (TTE) [facility], [address] [place] [address] and TRANSTHORACIC ECHOCARDIOGRAM REPORT Patient Name: NEIL WILCOX Reading Physician: [id number] Jacobo French MD Study Date: 08/28/2023 Ordering Provider: [id number] LUCAS PEARCE MRN/PID: [id number] Fellow: Nurse: Date of 1945 Shoe Patternmaker: Moncho Infante RDCS /Age: years Gender: M Additional Staff: Height: 175.26 cm Admit Date: 08/28/2023 Weight: 79.38 kg Admission Status: Inpatient - Routine BSA: 1.95 m2 Department [facility] Cath Location: Lab Blood Pressure: 137 /78 mmHg Study Type: TRANSTHORACIC ECHO (TTE) LIMITED Diagnosis/ICD: Unspecified atrial fibrillation-I48.91 Indication: POST LAAO CPT Code: Echo Limited-74693 Patient History: Pertinent History: HTN; HLD; paroxysmal [...] 72.4 g/m2 LV % FS 32.6 % [id number] Jacobo French MD Electronically signed on 08/28/2023 at 5:50:59 PM Final [facility] TRANSTHORACIC ECHO (TTE) [facility], [address] [place] [address] and TRANSTHORACIC ECHOCARDIOGRAM REPORT Patient Name: NEIL Aldana Physician: [id number] Kandis Chau MD Study Date: 08/28/2023 Ordering Provider: [id number] LUCAS PEARCE MRN/PID: [id number] Fellow: Nurse: Date of /Age: 1 1945 / 77 years Shoe Patternmaker: Moncho Infante FLORENCE Gender: M Additional Staff: Height: 175.26 cm Admit Date: 08/28/2023 Weight: 79.38 kg Admission Status: Inpatient - Routine BSA: 1.95 m2 Department Location: [facility] Non Invasive Study Type: TRANSTHORACIC ECHO (TTE) LIMITED Diagnosis/ICD: Unspecified atrial fibrillation-I48.91 Indication: Pre-LAAO CPT Code: Echo Limited-65850 Patient History: Pertinent History: HTN; HLD: paroxysmal [...] VALVE/RVSP: Normal Ranges: IVC Diam: 1.50 cm [id number] Kandis Chau MD Electronically signed on 08/28/2023 at 3:17:19 PM Final [facility] Heart Transthoracicon [facility], [address] [place] [address] and TRANSTHORACIC ECHOCARDIOGRAM REPORT Patient Name: NEIL Matthews DAVIAN Reading Physician: [id number] Kandis Chau MD Study Date: 08/28/2023 Ordering Provider: [id number] LUCAS PEARCE MRN/PID: [id number] Fellow: Nurse: Date of /Age: 1 1945 / 77 years Shoe Patternmaker: Moncho Infante RDCS Gender: M Additional Staff: Height: 175.26 cm Admit Date: 08/28/2023 Weight: 79.38 kg Admission Status: Inpatient - Routine BSA: 1.95 m2 Department Location: [facility] Non Invasive Study Type: TRANSTHORACIC ECHO (TTE) LIMITED Diagnosis/ICD: Unspecified atrial fibrillation-I48.91 Indication: Pre-LAAO CPT Code: Echo Limited-74268 Patient History: Pertinent History: HTN; HLD: paroxysmal [...] VALVE/RVSP: Normal Ranges: IVC Diam: 1.50 cm [id number] Kandis Chau MD Electronically signed on 08/28/2023 at 3:17:19 PM Final Kandis Bhatt MD - 08/28/2023 [facility], [address] [place] [address] and TRANSTHORACIC ECHOCARDIOGRAM REPORT Patient Name: NEIL WILCOX Reading Physician: [id number] Kandis Chau MD Study Date: 08/28/2023 Ordering Provider: [id number] LUCAS PEARCE MRN/PID: [id number] Fellow: Nurse: Date of /Age: 1 1945 / 77 years Shoe Patternmaker: Moncho Infante RDCS Gender: M Additional Staff: Height: 175.26 cm Admit Date: 08/28/2023 Weight: 79.38 kg Admission Status: Inpatient - Routine BSA: 1.95 m2 Department Location: [facility] Non Invasive Study Type: TRANSTHORACIC ECHO (TTE) LIMITED Diagnosis/ICD: Unspecified atrial fibrillation-I48.91 Indication: Pre-LAAO CPT Code: Echo Limited-33767 Patient History: Pertinent History: HTN; HLD: paroxysmal [...] VALVE/RVSP: Normal Ranges: IVC Diam: 1.50 cm [id number] Kandis Chau MD Electronically signed on 08/28/2023 at 3:17:19 PM Final [facility] Work Phone: Heart TransthoracicOrdere d By: Kandis Chau on 08-28-2023 [facility] Work Phone: Creatinineon 08-22-2023 Creatinine [Mass/Vol] 1.23 mg/dL Normal 0.50-1.30 [facility] Comment on above: Performed By: #### 2 160-0 #### LINDA GALLAGHER ([id number]) [facility] [place] [place] [address] [place] [address] 82263 Creatinine [Mass/Vol]on 07-26 GFR/1.73 sq M.predicted MDRD (S/P/Bld) [Vol rate/Area] 61 mL/min/1.73m*2 Normal >60 [facility] Comment on above: Result Comment: Calc ulations of estimated GFR are performed using the 2020 CKD-EPI Study Refit equation without the race variable for the IDMS-Traceable creatinine methods. https://jasn.asnjournals.org/content/early//ASN.2020 958029 Performed By: #### 2 160-0 #### LINDA GALLAGHER ([id number]) [facility] (EM) [address] [place] [address] 97779 CBC W Auto Differential pane l (Bld)on 07-31-2023 Basophils (Bld) [#/Vol] 10*3/uL Normal <0.11 [facility] Comment on above: Order Comment: Speci men Type: BLOOD SPECIMEN Ordering Facility: External Submitter Address: , , Performed By: #### 5 7021-8 #### [facility] CLIA [id number] [address] [place] [address] [place] Basophils/100 WBC (Bld) 0.3 % Normal [facility] Comment on above: Order Comment: Speci men Type: BLOOD SPECIMEN Ordering Facility: External Submitter Address: , , Performed By: #### 5 7021-8 #### [facility] CLIA [id number] [address] [place] [address] [place] CBC W Differential panel, method unspecified (Bld) Done Normal [facility] Comment on above: Order Comment: Speci men Type: BLOOD SPECIMEN Ordering Facility: External Submitter Address: , , Performed By: #### 5 7021-8 #### [facility] CLIA [id number] [address] [place] [address] [place] Differential cell count method Nom (Bld) Auto Normal [facility] Comment on above: Order Comment: Speci men Type: BLOOD SPECIMEN Ordering Facility: External Submitter Address: , , Performed By: #### 5 7021-8 #### [facility] CLIA [id number] [address] [place] [address] [place] Eosinophils (Bld) [#/Vol] 0.22 10*3/uL Normal <0.46 [facility] Comment on above: Order Comment: Speci men Type: BLOOD SPECIMEN Ordering Facility: External Submitter Address: , , Performed By: #### 5 7021-8 #### [facility] CLIA [id number] [address] [place] [address] [place] Eosinophils/100 WBC (Bld) 6.5 % Normal [facility] Comment on above: Order Comment: Speci men Type: BLOOD SPECIMEN Ordering Facility: External Submitter Address: , , Performed By: #### 5 7021-8 #### [facility] CLIA [id number] [address] [place] [address] [place] Erythrocyte distribution width (RBC) [Ratio] 13.0 % Normal 11.5-15.0 [facility] Comment on above: Order Comment: Speci men Type: BLOOD SPECIMEN Ordering Facility: External Submitter Address: , , Performed By: #### 5 7021-8 #### [facility] CLIA [id number] [address] [place] [address] [place] Hematocrit (Bld) [Volume fraction] 31.3 % Low 39.0-51.0 [facility] Comment on above: Order Comment: Speci men Type: BLOOD SPECIMEN Ordering Facility: External Submitter Address: , , Performed By: #### 5 7021-8 #### [facility] CLIA [id number] [address] [place] [address] [place] Hemoglobin (Bld) [Mass/Vol] 10.4 g/dL Low 13.0-17.0 [facility] Comment on above: Order Comment: Speci men Type: BLOOD SPECIMEN Ordering Facility: External Submitter Address: , , Performed By: #### 5 7021-8 #### [facility] CLIA [id number] [address] [place] [address] [place] Immature granulocytes (Bld) [#/Vol] 10*3/uL Normal <0.10 [facility] Comment on above: Order Comment: Speci men Type: BLOOD SPECIMEN Ordering Facility: External Submitter Address: , , Performed By: #### 5 7021-8 #### [facility] CLIA [id number] [address] [place] [address] [place] Immature granulocytes/100 WBC (Bld) 0.0 % Normal [facility] Comment on above: Order Comment: Speci men Type: BLOOD SPECIMEN Ordering Facility: External Submitter Address: , , Performed By: #### 5 7021-8 #### [facility] CLIA [id number] [address] [place] [address] [place] Lymphocytes (Bld) [#/Vol] 1.06 10*3/uL Normal 1.00-4.00 [facility] Comment on above: Order Comment: Speci men Type: BLOOD SPECIMEN Ordering Facility: External Submitter Address: , , Performed By: #### 5 7021-8 #### [facility] CLIA [id number] [address] [place] [address] [place] Lymphocytes/100 WBC (Bld) 31.2 % Normal [facility] Comment on above: Order Comment: Speci men Type: BLOOD SPECIMEN Ordering Facility: External Submitter Address: , , Performed By: #### 5 7021-8 #### [facility] CLIA [id number] [address] [place] [address] [place] MCH (RBC) [Entitic mass] 37.3 pg High 26.0-34.0 [facility] Comment on above: Order Comment: Speci men Type: BLOOD SPECIMEN Ordering Facility: External Submitter Address: , , Performed By: #### 5 7021-8 #### [facility] CLIA [id number] [address] [place] [address] [place] MCHC (RBC) [Mass/Vol] 33.2 g/dL Normal 30.5-36.0 [facility] Comment on above: Order Comment: Speci men Type: BLOOD SPECIMEN Ordering Facility: External Submitter Address: , , Performed By: #### 5 7021-8 #### [facility] CLIA [id number] [address] [place] [address] [place] MCV (RBC) [Entitic vol] 112.2 fL High 80.0-100.0 [facility] Comment on above: Order Comment: Speci men Type: BLOOD SPECIMEN Ordering Facility: External Submitter Address: , , Performed By: #### 5 7021-8 #### [facility] CLIA [id number] [address] [place] [address] [place] Monocytes (Bld) [#/Vol] 0.13 10*3/uL Normal <0.87 [facility] Comment on above: Order Comment: Speci men Type: BLOOD SPECIMEN Ordering Facility: External Submitter Address: , , Performed By: #### 5 7021-8 #### [facility] CLIA [id number] [address] [place] [address] [place] Monocytes/100 WBC (Bld) 3.8 % Normal [facility] Comment on above: Order Comment: Speci men Type: BLOOD SPECIMEN Ordering Facility: External Submitter Address: , , Performed By: #### 5 7021-8 #### [facility] CLIA [id number] [address] [place] [address] [place] Neutrophils (Bld) [#/Vol] 1.98 10*3/uL Normal 1.45-7.50 [facility] Comment on above: Order Comment: Speci men Type: BLOOD SPECIMEN Ordering Facility: External Submitter Address: , , Performed By: #### 5 7021-8 #### [facility] CLIA [id number] [address] [place] [address] [place] Neutrophils/100 WBC (Bld) 58.2 % Normal [facility] Comment on above: Order Comment: Speci men Type: BLOOD SPECIMEN Ordering Facility: External Submitter Address: , , Performed By: #### 5 7021-8 #### [facility] CLIA [id number] [address] [place] [address] [place] Nucleated RBC (Bld) [#/Vol] 10*3/uL Normal <0.01 [facility] Comment on above: Order Comment: Speci men Type: BLOOD SPECIMEN Ordering Facility: External Submitter Address: , , Performed By: #### 5 7021-8 #### [facility] CLIA [id number] [address] [place] [address] [place] Nucleated RBC/100 WBC (Bld) [Ratio] 0.0 /100 WBC Normal [facility] Comment on above: Order Comment: Speci men Type: BLOOD SPECIMEN Ordering Facility: External Submitter Address: , , Performed By: #### 5 7021-8 #### [facility] CLIA [id number] [address] [place] [address] [place] Platelet mean volume (Bld) [Entitic vol] 9.1 fL Normal 9.0-12.7 [facility] Comment on above: Order Comment: Speci men Type: BLOOD SPECIMEN Ordering Facility: External Submitter Address: , , Performed By: #### 5 7021-8 #### [facility] CLIA [id number] [address] [place] [address] [place] Platelets (Bld) [#/Vol] 166 10*3/uL Normal 150-400 [facility] Comment on above: Order Comment: Speci men Type: BLOOD SPECIMEN Ordering Facility: External Submitter Address: , , Performed By: #### 5 7021-8 #### [facility] CLIA [id number] [address] [place] [address] [place] Platelets Estimate (Bld) [#/Vol] Adequate Normal [facility] Comment on above: Order Comment: Speci men Type: BLOOD SPECIMEN Ordering Facility: External Submitter Address: , , Performed By: #### 5 7021-8 #### [facility] CLIA [id number] [address] [place] [address] [place] RBC (Bld) [#/Vol] 2.79 10*6/uL Low 4.20-6.00 [facility] Comment on above: Order Comment: Speci men Type: BLOOD SPECIMEN Ordering Facility: External Submitter Address: , , Performed By: #### 5 7021-8 #### [facility] CLIA [id number] [address] [place] [address] [place] RED CELL MORPH Reviewed: unremarkable Normal [facility] Comment on above: Order Comment: Speci men Type: BLOOD SPECIMEN Ordering Facility: External Submitter Address: , , Performed By: #### 5 7021-8 #### [facility] CLIA [id number] [address] [place] [address] [place] WBC (Bld) [#/Vol] 3.40 10*3/uL Low 3.70-11.00 [facility] Comment on above: Order Comment: Speci men Type: BLOOD SPECIMEN Ordering Facility: External Submitter Address: , , Performed By: #### 5 7021-8 #### [facility] CLIA [id number] [address] [place] [address] [place] Comprehensive metabolic 2000 panelon 07-31-2023 Albumin [Mass/Vol] 3.8 g/dL Low 3.9-4.9 [facility] Comment on above: Order Comment: Speci men Type: BLOOD SPECIMEN Ordering Facility: External Submitter Address: , , Performed By: #### 2 4323-8, 3024-7, 3016-3 #### [facility] CLIA [id number] [address] [place] [address] [place] ALP [Catalytic activity/Vol] 132 U/L High 38-113 [facility] Comment on above: Order Comment: Speci men Type: BLOOD SPECIMEN Ordering Facility: External Submitter Address: , , Performed By: #### 2 4323-8, 3024-7, 3016-3 #### [facility] CLIA [id number] [address] [place] [id number] [place] ALT [Catalytic activity/Vol] 9 U/L Low 10-54 [facility] Comment on above: Order Comment: Speci men Type: BLOOD SPECIMEN Ordering Facility: External Submitter Address: , , Performed By: #### 2 4323-8, 3023-7, 3 #### [facility] CLIA [id number] [address] [place] [address] [place] Anion gap [Moles/Vol] 15 mmol/L Normal 9-18 [facility] Comment on above: Order Comment: Speci men Type: BLOOD SPECIMEN Ordering Facility: External Submitter Address: , , Performed By: #### 2 4323-8, 7, 3 #### [facility] CLIA [id number] [address] [place] [address] [place] AST [Catalytic activity/Vol] 16 U/L Normal 14-40 [facility] Comment on above: Order Comment: Speci men Type: BLOOD SPECIMEN Ordering Facility: External Submitter Address: , , Performed By: #### 2 4323-8, 3024-03, 3 #### [facility] CLIA [id number] [address] [place] [address] [place] Bilirubin [Mass/Vol] 0.4 mg/dL Normal 0.2-1.3 [facility] Comment on above: Order Comment: Speci men Type: BLOOD SPECIMEN Ordering Facility: External Submitter Address: , , Performed By: #### 2 4323-8, 3024-03, 3 #### [facility] CLIA [id number] [address] [place] [place] [id number] [place] Calcium [Mass/Vol] 9.6 mg/dL Normal 8.5-10.2 [facility] Comment on above: Order Comment: Speci men Type: BLOOD SPECIMEN Ordering Facility: External Submitter Address: , , Performed By: #### 2 4323-8, 3023-7, 3 #### [facility] CLIA [id number] [address] [address] [place] Chloride [Moles/Vol] 99 mmol/L Normal 97-105 [facility] Comment on above: Order Comment: Speci ciera Type: BLOOD SPECIMEN Ordering Facility: External Submitter Address: , , Performed By: #### 2 4323-8, 3024-03, 3 #### [facility] CLIA [id number] [address] [place] [id number] [place] CO2 [Moles/Vol] 23 mmol/L Normal 22-30 [facility] Comment on above: Order Comment: Speci men Type: BLOOD SPECIMEN Ordering Facility: External Submitter Address: , , Performed By: #### 2 4323-8, 3024-03, 3015-11 #### [facility] CLIA [id number] [address] [place] [address] [place] Creatinine [Mass/Vol] 1.23 mg/dL High 0.73-1.22 [facility] Comment on above: Order Comment: Speci men Type: BLOOD SPECIMEN Ordering Facility: External Submitter Address: , , Performed By: #### 2 4323-8, 3024-03, 3015-11 #### [facility] CLIA [id number] [address] [place] Creatinine and Glomerular filtration rate.predicted panel (S/P/Bld) 61 mL/min/1.73m??? Normal >=60 [facility] Comment on above: Order Comment: Speci [...] By: #### 2 4323-8, 3024-03, 3015-11 #### [facility] CLIA [id number] [address] [address] [place] Glucose [Mass/Vol] 139 mg/dL High 74-99 [facility] Comment on above: Order Comment: Gee vang Type: BLOOD SPECIMEN Ordering Facility: External Submitter Address: , , Result Comment: The [place] [employer] (ADA) provides guidance for cutoff [...] Standards of Medical Care in Diabetes 2016, [place] [employer]. Diabetes Care. 2016.39(Suppl 1). Performed By: #### 2 4323-8, 3024-03, 3015-11 #### [facility] CLIA [id number] [address] [place] [id number] [place] Potassium [Moles/Vol] 4.0 mmol/L Normal 3.7-5.1 [facility] Comment on above: Order Comment: Gee vang Type: BLOOD SPECIMEN Ordering Facility: External Submitter Address: , , Performed By: #### 2 4323-8, 3024-03, 3015-11 #### [facility] CLIA [id number] [address] [address] [place] Protein [Mass/Vol] 7.7 g/dL Normal 6.3-8.0 [facility] Comment on above: Order Comment: Gee vang Type: BLOOD SPECIMEN Ordering Facility: External Submitter Address: , , Performed By: #### 2 4323-8, 3024-03, 3015-11 #### [facility] CLIA [id number] [address] [place] [address] [place] Sodium [Moles/Vol] 137 mmol/L Normal 136-144 [facility] Comment on above: Order Comment: Speci men Type: BLOOD SPECIMEN Ordering Facility: External Submitter Address: , , Performed By: #### 2 4323-8, 302-7, 3015-3 #### [facility] CLIA [id number] [address] [place] [address] [place] Urea nitrogen [Mass/Vol] 19 mg/dL Normal 9-24 [facility] Comment on above: Order Comment: Speci men Type: BLOOD SPECIMEN Ordering Facility: External Submitter Address: , , Performed By: #### 2 4323-8, 7, 3 #### [facility] CLIA [id number] [address] [place] [address] [place] T4 Free SerPl-mCncon 023 Free T4 [Mass/Vol] 1.1 ng/dL Normal 0.9-1.7 [facility] Comment on above: Order Comment: Speci men Type: BLOOD SPECIMEN Ordering Facility: External Submitter Address: , , Performed By: #### 2 4323-8, 3024-03, 3 #### [facility] CLIA [id number] [address] [place] [address] [place] TSH SerPl-aCncon 07-31-2023 TSH Qn 4.190 m[IU]/L Normal 0.270-4.200 [facility] Comment on above: Order Comment: Speci men Type: BLOOD SPECIMEN Ordering Facility: External Submitter Address: , , Performed By: #### 2 4323-8, 7, 3 #### [facility] CLIA [id number] [address] [place] [place] [id number] [place] Ambulatory Visit Summaryon [...] 325 mg-50 mg-40 mg Tab) Misc Prescription (Szl B-12 1,000 MCG TABLET) Non-Formulary Medication (Butapap [...] spironolactone (spironolactone 25 mg Tab) thyroid desiccated ([place] Thyroid) Procedures Performed Urethral dilatation (11/03/2022), TURP [...] months Where: [facility] [address] [place] [address]- Medications What How Much When Instructions Changed tolterodine (tolterodine 2 mg Cap-ER) 1 Capsules By Mouth Every day Pickup at [facility]/pharmacy #[id number] Unchanged APAP/ butalbital/ caffeine (APAP/ butalbital/ caffeine [...] if questions or concerns Unchanged thyroid desiccated ([place] Thyroid) By Mouth Every day Contact prescribing physician if questions or concerns Pharmacy Information [facility]/pharmacy #[id number]: [address], [place] [id number] [phone] Allergies No Known Allergies Problems Ongoing - Any problem that you are currently receiving treatment for. BPH without urinary obstruction Hesitancy Hypertension Incomplete bladder emptying Intertrigo mild [place] (myocardial infarction) Nocturia Protein in urine Proteinuria [...] This condi (more content not included)... Normal [facility] Patient Educationon 07-09-20 Patient Education Urology Benign [...] Follow these instructions at home: ? Take [id number]-[id number] and prescription medicines only as told by [...] the medicine (more content not included)... Normal [facility] Urology Office/Clinic Noteon 07-09-2023 Urology Office/Clinic Note [...] months [facility] [address], [place] [address] Additional Instructions: Patient Education Benign Prostatic Hyperplasia I, Valentine Fuentes , personally scribed for Dr. Ferguson on 07/09/2023 11:38:56. . Documentation recorded by the scribe, Valentine Fuentes, accurately reflects the services(s) I performed and decisions made by me. Problem List/Past Medical History Ongoing BPH without urinary obstruction Hesitancy Hypertension Incomplete bladder emptying Intertrigo mild NV (myocardial infarction) Nocturia Protein in urine Proteinuria Smoker Urethral meatal stenosis Urge incontinence Urinary incontinence without sensory awareness Urinary retention Historical No qualifying data Procedure/Surgical History Urethral dilatation (11/03/2022), TURP - Transurethral resection of prostate (08/31/2022), Cystoscopy (01/24/2022), Colonoscopy, Shoulder replacement. Medications APAP/butalbital/caffei ne 325 mg-50 mg-40 mg Tab Mesa Thyroid, Oral, Daily atorvastatin, Oral, Daily Butapap cat 40mg PRN CVS B-12 1,000 MCG TABLET, 0 doxazosin 4 mg Tab Eliquis 5 mg oral tablet FLUoxet (more content not included)... Normal [facility] Comment on above: Result Comment: Elec tronically [...] Orders Anemia Complete Blood Count; Status:Active; Requested for:[id number]; Atrial fibrillation, currently in sinus rhythm, Frequent falls Cardiology - Valve and Structural Heart Program Referral Evaluation and Treatment Evaluate AND Treat Status: Hold For - Scheduling Requested for: 11Jun2023 SocHx: Former smoker Tobacco Use Screening; Status:Complete; Done: [id number] Patient Instructions Please bring all medicines, vitamins, [...] fibrillation, hypercoagulability related to atrial fibrillation, high [id number] score, most recently seen February 2023 and [...] due to atrial fibrillation, on anticoagulation. 10. [id number] at least 5. Has bled score 2 [...] cuff rep (more content not included)... Normal 6APT Tobacco Screening.on 023 Fall risk assessment b) One or more fall s in the last year -[facility] [address] DO Work Phone: Tobacco use status CPHS b) No M P-[facility] [address] DO Work Phone: Tobacco Screening. Yes MP-[facility] [facility] DO Work Phone: Patient [...] provider. Document Revised: 01/19/2022 Document Reviewed: 01/19/2022 [employer] Patient Education ? 2022 [employer]. aRy [facility] Urology Office/Clinic Noteon 04-03-2023 Urology Office/Clinic [...] When Contact Information CHARLOTTE BAKER PA-C, URL [address] [facility] [place] [address] Additional Instructions: keep appt w/ Patient Education Kegel Exercises Documentation recorded by the hubert Fuentes accurately reflects the services(s) I performed and decisions made by me. Authenticated by Charlotte Baker PA-C on 04/03/2023 09:50:52. IValentine, personally scribed for Charlotte Baker PA-C on 04/03/2023 09:31:40. . Problem List/Past Medical History Ongoing BPH without urinary obstruction Hesitancy Hypertension Incomplete bladder emptying Intertrigo mild NV (myocardial infarction) Nocturia Protein in urine Proteinuria Smoker Urethral meatal stenosis Urge incontinence Urinary incontinence without sensory awareness Urinary retention Historical No qualifying data Procedure/Surgical History Urethral dilatation (11/03/2022), TURP - Transurethral resection of prostate (08/31/2022), Cystoscopy (01/24/2022), Colonoscopy, Shoulder replacement. Medications amLODIPine 5 mg Tab Mesa Thyroid, Oral, Daily aspirin 81 mg oral [...] vaccine 07/12/ (more content not included)... Normal [facility] Comment on above: Result Comment: Elec tronically [...] Once daily Device check as directed per [facility] protocol Chief Complaint NEIL WILCOX is being [...] due to atrial fibrillation, on anticoagulation. 10. [id number] at least 5. Has bled score 2 [...] more fall s in the last year [facility] [address] DO Work Phone: Tobacco use status CP b) No M P-[facility] [place] [address] DO Work Phone: Patient Educationon [...] conditioner or fan, if available. ? Apply zymv-edx-xgcoxtp and prescription medicines only as told by [...] well after activity or exercise. Use a hairspring setter on a cool setting to dry between [...] your skin and with medicines. ? Apply rkbp-jno-bvrmxbp and prescription medicines only as told by your health care provider. ? Keep all follow-up visits as told by your health care provider. This is important. This information is not intended to replace advice given to you by your health care provider. Make sure you discuss any questions you have with your health care provider. Document Revised: 06/26/2022 Document Reviewed: 06/26/2022 [email or web address] Patient Education ? 2022 [employer] AmbreenDeidre Ray [facility] Urology Office/Clinic Noteon 01-23-2023 Urology Office/Clinic [...] weeks. if no improvement contact office[id number], 175, cm, 01/23/23 14:14:00 EDT, Height/Length Dosing, 81, kg, 01/23/23 14:14:00 EDT, Weight Dosing E&M of Est. Patient Low 20-29 Min [id number] Orders: Urnls Dip Stick Auto w/o Microscopy POC [id number] Follow-up No qualifying data available f/u [facility]UI 8 wks. keep previously scheduled f/u w PRW this fall. Patient Education Intertrigo Problem List/Past Medical History Ongoing BPH without urinary obstruction Hesitancy Hypertension Incomplete bladder emptying mild NV (myocardial infarction) Nocturia Protein in urine Proteinuria Smoker Urethral meatal stenosis Urge incontinence Urinary incontinence without sensory awareness Urinary retention Historical No qualifying data Procedure/Surgical History Urethral dilatation (11/03/2022), TURP - Transurethral resection of prostate (08/31/2022), Cystoscopy (01/24/2022), Colonoscopy, Shoulder replacement. Medications amLODIPine 5 mg Tab Mesa Thyroid, Oral, Daily aspirin 81 mg oral [...] Dipstick: 1+ (30 mg/dl) (01/23/23 14:11:00) Specific [place] Urine Dipstick: >=1.030 (01/23/23 14:11:00) Urine Appearance Urine Dipstick: Clear (01/23/23 14:11:00) Urine Color Urine Dipstick: Yellow (01/23/23 14:11:00) Urobilinogen Urine Dipstick: Normal 0.2-1 EU/dl (01/23/23 14:11:00) pH Urine Dipstick: 5.5 (01/23/23 14:11:00) Normal [facility] Comment on above: Result Comment: Elec tronically [...] Follow these instructions at home: ? Take txxw-nqr-ycsrgjv and prescription medicines only as told by [...] 10/06/2016 Document Revised: 04/23/2019 Document Reviewed: 04/23/2019 Acc[employer]in Patient Education ? 2019 [employer] Normal [facility] Urology Office/Clinic Noteon 01-01-2023 Urology Office/Clinic Note [...] [facility] [address], [place] [address]- Additional Instructions: 6 mos with UA Patient Education Urethral Stricture I, Jessica Landrum, personally scribed for Dr. Ferguson on 01/01/2023 13:19:03. . Documentation recorded by the scribe, Jessica Landrum, accurately reflects the services(s) I performed and decisions made by me. Authenticated by Dr. Ferguson on 01/01/2023 13:24:19. Problem List/Past Medical History Ongoing BPH without urinary obstruction Hesitancy Hypertension Incomplete bladder emptying mild NV (myocardial infarction) Nocturia Protein in urine Proteinuria Smoker Urethral meatal stenosis Urge incontinence Urinary incontinence without sensory awareness Urinary retention Historical No qualifying data Procedure/Surgical History TURP - Transurethral resection of prostate (08/31/2022), Cystoscopy (01/24/2022), Colonoscopy, Shoulder replacement. Medications amLODIPine 5 mg Tab Mesa Thyroid, Oral, Daily aspirin 81 mg oral [...] vaccine 03/ (more content not included)... Normal [facility] Comment on above: Result Comment: Elec tronically [...] MG Oral TabletTAKE 1 TABLET AT BEDTIME. Lrmbhckuus-AFSO-Azvtfs ne 50-325-40 MG Oral TabletTAKE 1 TABLET [...] PM Social (more content not included)... Normal 6APT Tobacco Screening.on 023 Fall risk assessment a) No falls within the last year [facility] [employer] 250 DO Work Phone: Tobacco use status CPHS b) No M [facility] [employer] 250 DO Work Phone: Office Visit (Cardiology)on [...] Former smoker Tobacco Use Screening; Status:Complete; Done: [id number] Patient Instructions Please bring all medicines, vitamins, and herbal supplements with you when you come to the office. Prescriptions will not be filled unless you are compliant with your follow up appointments or have a follow up appointment scheduled as per instruction of your physician. Refills should be requested at the time of your visit. Loulou Arreguin [employer] in 1 weeks Follow up in 6 [...] MG Oral TabletTAKE 1 TABLET AT BEDTIME. Jzrhxigrsq-NZKC-Nomrru ne 50-325-40 MG Oral TabletTAKE 1 TABLET [...] Caffeine us (more content not included)... Normal 6APT Tobacco Screening.on 023 Adult depression screening assessment No [facility] [employer] 250 DO Work Phone: Fall risk assessment a) No falls within the last year [facility] [employer] 250 DO Work Phone: Tobacco use status CPHS b) No M [facility] [employer] 250 DO Work Phone: Office Visit (Cardiology)on [...] in adult Healthy Weight Tips; Status:Complete; Done: [id number] Some eating tips that can help you lose weight.; Status:Complete; Done: [id number] SocHx: Former smoker Tobacco Use Screening; Status:Complete; Done: [id number] Chief Complaint NEIL WILCOX is being seen for hypertension. Current Meds Medication NameInstruction amLODIPine Besylate 10 MG Oral TabletTAKE 1 TABLET DAILY. Atorvastatin Calcium 40 MG Oral TabletTAKE 1 TABLET AT BEDTIME. Ebxmhduumq-NIDP-Rvwsgn ne 50-325-40 MG Oral TabletTAKE 1 TABLET [...] as previously mentioned Vitals Vital Signs Recorded: [id number] 01:07PMRecorded: [id number] 01:00PM Systolic Egctf292, LUE Diastolic Lying84, LUE Systolic Dcpnjep583, LUE Diastolic Vmwipex86, LUE Systolic Xipgqwlx861, LUE Diastolic Poyxgnpj00, LUE Heart Rate62, L Radial Height5 ft 9 in Agoizu254 lb BMI Mzthebyujy26.99 kg/m2 BSA Calculated1.96 Physical Exam GENERAL: Well [...] Sep 15 2022 7:52PM EST (Author) Normal 6APT Covid-19 PCR (CVDTBH)on 12-0 6-2022 SARS-CoV-2 (COVID-19) RNA KEIKO+probe Ql (Unsp spec) Not detected Normal NOT DETECTED [facility] Comment on above: Result Comment: This test is not yet approved or cleared by the [place] FDA. When there are no FDA-approved or cleared tests available, and other criteria are met, FDA can make tests available under an emergency access mechanism called an Emergency Use Authorization (EUA). The EUA for this test is supported by the [place] [employer] and Human Service's (HHS's) declaration [...] By: #### T SH, LIPID, CMP #### [facility] [address] [address] [address] Oscar Paulino Office Visit (Cardiology)on 08-28-2022 [...] TABLET DAILY Basic Metabolic Panel; Status:Active; Requested for:[id number]; Overweight with body mass index (BMI) of 25 to 25.9 in adult Start: Spironolactone 25 MG Oral Tablet; TAKE 1 TABLET DAILY Healthy Weight Tips; Status:Complete; Done: [id number] Some eating tips that can help you lose weight.; Status:Complete; Done: 33Ohk3830 Paroxysmal atrial fibrillation with RVR Start: Eliquis [...] these medications, (more content not included)... Normal 6APT Tobacco Screening.on 022 Fall risk assessment b) One or more fall s in the last year [facility] [employer] [place] 250 DO Work Phone: Tobacco use status CP b) No M [facility] [employer] [place] [address] DO Work Phone: LIPID PROFILEon 08-25-2022 CHOL-HDL RATIO NORM SEE BELOW Normal [facility] Comment on above: Result Comment: 3.3 - 4.4 LOW RISK 4.4 - 7.1 AVERAGE RISK 7.1 - 11.0 MODERATE RISK >11.0 HIGH RISK Performed By: #### T SH, LIPID, CMP #### [facility] [address] [place] [address] Dr. Oscar Paulino Cholesterol [Mass/Vol] 121 mg/dL Normal <=200 [facility] Comment on above: Performed By: #### T SH, LIPID, CMP #### [facility] [address] [address] [address] Oscar Paulino Cholesterol in HDL [Mass/Vol] 42 mg/dL Normal 40-60 [facility] Comment on above: Performed By: #### T SH, LIPID, CMP #### [facility] [address] [address] [address] Oscar Paulino Cholesterol in LDL [Mass/Vol] 66.2 mg/dL Normal [facility] Comment on above: Performed By: #### T SH, LIPID, CMP #### [facility] [address] [address] [address] Oscar Paulino Cholesterol.total/Suzette sterol in HDL [Mass ratio] 2.9 {ratio} Normal [facility] Comment on above: Performed By: #### T MANJIT, LIPID, CMP #### [facility] [address] [address] [address] Oscar Paulino HDL NORMAL > or = 60 mg/dl - LO W CARDIOVASCULAR RISK <40 mg/dl - HIGH CARDIOVASCULAR RISK Normal [facility] Comment on above: Performed By: #### T SH, LIPID, CMP #### [facility] [address] [address] [address] Oscar Paulino LDL CALC NORMAL SEE BELOW Normal [facility] Comment on above: Result Comment: <100 mg/dl OPTIMAL 100 - 129 mg/dl NEAR OR ABOVE OPTIMAL 130 - 159 mg/dl BORDERLINE HIGH 160 - 189 mg/dl HIGH >190 mg/dl VERY HIGH Performed By: #### T SH, LIPID, CMP #### [facility] [address] [address] [address] Oscar Paulino Triglyceride [Mass/Vol] 64 mg/dL Normal <=150 T [facility] Comment on above: Performed By: #### T SH, LIPID, CMP #### [facility] [address] [address] [address] Oscar Paulino VLDL CALC 12.8 mg/dL Normal [facility] Comment on above: Performed By: #### T SH, LIPID, CMP #### [facility] [address] [address] [address] Oscar Paulino PROF 14(COMP METB)on 022 Albumin [Mass/Vol] 3.6 g/dL Normal 3.4-5.0 [facility] Comment on above: Performed By: #### T SH, LIPID, CMP #### [facility] [address] [address] [address] Oscar Paulino Albumin/Globulin [Mass ratio] 0.8 {ratio} Normal [facility] Comment on above: Performed By: #### T MANJIT, LIPID, CMP #### [facility] [address] [address] [address] Oscar Paulino ALP [Catalytic activity/Vol] 92 U/L Normal 46-116 [facility] Comment on above: Performed By: #### T MANJIT, LIPID, CMP #### [facility] [address] [address] [address] Oscar Paulino ALT [Catalytic activity/Vol] 17 U/L Normal 16-63 [facility] Comment on above: Performed By: #### T MANJIT, LIPID, CMP #### [facility] [address] [place] [address] Dr. Oscar Paulino Anion gap [Moles/Vol] 9.7 mmol/L Normal [facility] Comment on above: Performed By: #### T MANJIT, LIPID, CMP #### [facility] [address] [address] [address] Oscar Paulino AST [Catalytic activity/Vol] 10 U/L Critically low 15-37 [facility] Comment on above: Performed By: #### T SH, LIPID, CMP #### [facility] [address] [place] [address] Dr. Oscar Paulino Bilirubin [Mass/Vol] 0.3 mg/dL Normal 0.2-1.0 [facility] Comment on above: Performed By: #### T SH, LIPID, CMP #### [facility] [address] [place] [address] Dr. Oscar Paulino Calcium [Mass/Vol] 9.4 mg/dL Normal 8.5-10.1 [facility] Comment on above: Performed By: #### T SH, LIPID, CMP #### [facility] [address] [address] [address] Oscar Paulino Chloride [Moles/Vol] 102 mmol/L Normal 98-107 [facility] Comment on above: Performed By: #### T SH, LIPID, CMP #### [facility] [address] [address] [address] Oscar Paulino CO2 [Moles/Vol] 29.1 mmol/L Normal 21.0-32.0 [facility] Comment on above: Performed By: #### T MANJIT, LIPID, CMP #### [facility] [address] [place] [address] Dr. Oscar Paulino Creatinine [Mass/Vol] 1.08 mg/dL Normal 0.70-1.30 [facility] Comment on above: Performed By: #### T MANJIT, LIPID, CMP #### [facility] [address] [place] [address] Dr. Oscar Paulino EGFR-AF DUTCH >60 Normal >=60 [facility] Comment on above: Performed By: #### T MANJIT, LIPID, CMP #### [facility] [address] [place] [address] Dr. Oscar Paulino EGFR-NON AF DUTCH >60 Normal >=60 [facility] Comment on above: Performed By: #### T MANJIT, LIPID, CMP #### [facility] [address] [place] [address] Dr. Oscar Paulino Globulin (S) [Mass/Vol] 4.3 g/dL Normal [facility] Comment on above: Performed By: #### T SH, LIPID, CMP #### [facility] [address] [place] [address] Dr. Oscar Paulino Glucose [Mass/Vol] 104 mg/dL Normal 74-106 [facility] Comment on above: Performed By: #### T SH, LIPID, CMP #### [facility] [address] [address] [address] Oscar Paulino Potassium [Moles/Vol] 3.8 mmol/L Normal 3.5-5.1 [facility] Comment on above: Performed By: #### T MANJIT, LIPID, CMP #### [facility] [address] [place] [address] Dr. Oscar Paulino Protein [Mass/Vol] 7.9 g/dL Normal 6.4-8.2 [facility] Comment on above: Performed By: #### T MANJIT, LIPID, CMP #### [facility] [address] [place] [address] Dr. Oscar Paulino Sodium [Moles/Vol] 137 mmol/L Normal 136-145 [facility] Comment on above: Performed By: #### T MANJIT, LIPID, CMP #### [facility] [address] [place] [address] Dr. Oscar Paulino Urea nitrogen [Mass/Vol] 18.0 mg/dL Normal 7.0-18.0 [facility] Comment on above: Performed By: #### T MANJIT, LIPID, CMP #### [facility] [address] [place] [address] Dr. Oscar Paulino Urea nitrogen/Creatinine [Mass ratio] 16.7 mg/mg Normal [facility] Comment on above: Performed By: #### T MANJIT, LIPID, CMP #### [facility] [address] [place] [address] Dr. Oscar Paulino TSHon 08-25-2022 TSH 2.967 uIU/mL Normal 0.358-3.740 [facility] Comment on above: Performed By: #### T MANJIT, LIPID, CMP #### [facility] [address] [place] [address] Dr. Oscar Paulino CBC AUTO DIFFon 08-22-2022 BASO # 0.0 103/ul Normal 0.0-0.1 [facility] Comment on above: Performed By: #### T MANJIT, LIPID, CMP #### [facility] [address] [place] [address] Dr. Oscar Paulino Basophils/100 WBC (Bld) 0.3 % Normal 0.2-2.0 [facility] Comment on above: Performed By: #### T MANJIT LIPID, CMP #### [facility] [address] [place] [address] Dr. Oscar Paulino EO # 0.3 103/ul Normal 0.0-0.7 [facility] Comment on above: Performed By: #### T MANJIT LIPID, CMP #### [facility] [address] [place] [address] Dr. Oscar Paulino Eosinophils/100 WBC (Bld) 7.3 % Critically high 0.9-7.0 [facility] Comment on above: Performed By: #### T MANJIT LIPID, CMP #### [facility] [address] [place] [address] Dr. Oscar Paulino Erythrocyte distribution width (RBC) [Ratio] 11.9 % Normal 11.0-15.0 [facility] Comment on above: Performed By: #### T MANJIT LIPID, CMP #### [facility] [address] [place] [address] Dr. Oscar Paulino Hematocrit (Bld) [Volume fraction] 33.8 % Critically low 42.0-54.0 [facility] Comment on above: Performed By: #### T MANJIT LIPID, CMP #### [facility] [address] [place] [address] Dr. Oscar Paulino Hemoglobin (Bld) [Mass/Vol] 12.0 g/dL Critically low 14.0-18.0 [facility] Comment on above: Performed By: #### T MANJIT LIPID, CMP #### [facility] [address] [place] [address] Dr. Oscar Paulino IG # 0.01 10e3/ul Normal 0.00-0.03 [facility] Comment on above: Performed By: #### T MANJIT LIPID, CMP #### [facility] [address] [place] [address] Dr. Oscar Paulino IG % 0.3 % Normal 0.0-0.5 [facility] Comment on above: Performed By: #### T MANJIT LIPID, CMP #### [facility] [address] [address] [address] Oscar Paulino LYMPH # 1.4 103/ul Normal 1.2-3.8 [facility] Comment on above: Performed By: #### T SH, LIPID, CMP #### [facility] [address] [address] [address] Oscar Paulino Lymphocytes/100 WBC (Bld) 39.2 % Normal 20.5-60.0 [facility] Comment on above: Performed By: #### T SH, LIPID, CMP #### [facility] [address] [address] [address] Oscar Paulino MANUAL DIFF REQ NO Normal [facility] Comment on above: Performed By: #### T SH, LIPID, CMP #### [facility] [address] [place] [address] Dr. Oscar Paulino MCH (RBC) [Entitic mass] 36.4 pg Critically high 25.9-34.0 [facility] Comment on above: Performed By: #### T SH, LIPID, CMP #### [facility] [address] [place] [address] Dr. Oscar Paulino MCHC (RBC) [Mass/Vol] 35.5 g/dL Critically high 29.9-35.2 [facility] Comment on above: Performed By: #### T SH, LIPID, CMP #### [facility] [address] [place] [address] Dr. Oscar Paulino MCV (RBC) [Entitic vol] 102.4 fL Critically high 80.0-94 .0 [facility] Comment on above: Performed By: #### T SH, LIPID, CMP #### [facility] [address] [address] [address] Oscar Paulino MONO # 0.2 103/ul Critically low 0.3-0.8 [facility] Comment on above: Performed By: #### T SH, LIPID, CMP #### [facility] [address] [place] [address] Dr. Oscar Paulino Monocytes/100 WBC (Bld) 6.8 % Normal 1.7-12.0 [facility] Comment on above: Performed By: #### T SH, LIPID, CMP #### [facility] [address] [address] [address] Oscar Paulino NEUT # 1.6 103/ul Normal 1.4-6.5 [facility] Comment on above: Performed By: #### T SH, LIPID, CMP #### [facility] [address] [place] [address] Dr. Oscar Paulino Neutrophils/100 WBC (Bld) 46.1 % Normal 43.0-75.0 [facility] Comment on above: Performed By: #### T SH, LIPID, CMP #### [facility] [address] [place] [address] Dr. Oscar Paulino Platelet mean volume (Bld) [Entitic vol] 8.5 fL Critically low 9.5-13.5 [facility] Comment on above: Performed By: #### T SH, LIPID, CMP #### [facility] [address] [place] [address] Dr. Oscar Paulino PLT 191 103/ul Normal 150-450 [facility] Comment on above: Performed By: #### T SH, LIPID, CMP #### [facility] [address] [place] [address] Dr. Oscar Paulino RBC 3.30 106/ul Critically low 4.70-6.10 [facility] Comment on above: Performed By: #### T SH, LIPID, CMP #### [facility] [address] [place] [address] Dr. Oscar Paulino WBC 3.6 103/ul Critically low 4.0-11.0 [facility] Comment on above: Performed By: #### T SH, LIPID, CMP #### [facility] [address] [place] [address] Dr. Oscar Paulino PROF CHEM 8 (BAS METB)on Anion gap [Moles/Vol] 11.0 mmol/L Normal [facility] Comment on above: Performed By: #### B MP #### [facility] [address] [place] [address] Dr. Oscar Paulino Calcium [Mass/Vol] 9.4 mg/dL Normal 8.5-10.1 [facility] Comment on above: Performed By: #### B MP #### [facility] [address] [place] [address] Dr. Oscar Paulino Chloride [Moles/Vol] 103 mmol/L Normal 98-107 [facility] Comment on above: Performed By: #### B MP #### [facility] [address] [address] [address] Oscar Paulino CO2 [Moles/Vol] 27.7 mmol/L Normal 21.0-32.0 [facility] Comment on above: Performed By: #### B MP #### [facility] [address] [place] [address] Dr. Oscar Paulino Creatinine [Mass/Vol] 1.07 mg/dL Normal 0.70-1.30 [facility] Comment on above: Performed By: #### B MP #### [facility] [address] [place] [address] Dr. Oscar Paulino EGFR-AF DUTCH >60 Normal >=60 [facility] Comment on above: Performed By: #### B MP #### [facility] [address] [address] [address] Oscar Paulino EGFR-NON AF DUTCH >60 Normal >=60 [facility] Comment on above: Performed By: #### B MP #### [facility] [address] [place] [address] Dr. Oscar Paulino Glucose [Mass/Vol] 99 mg/dL Normal 74-106 [facility] Comment on above: Performed By: #### B MP #### [facility] [address] [address] [address] Oscar Paulino Potassium [Moles/Vol] 3.7 mmol/L Normal 3.5-5.1 [facility] Comment on above: Performed By: #### B MP #### [facility] [address] [place] [address] Dr. Oscar Paulino Sodium [Moles/Vol] 138 mmol/L Normal 136-145 [facility] Comment on above: Performed By: #### B MP #### [facility] [address] [place] [address] Dr. Oscar Paulino Urea nitrogen [Mass/Vol] 20.0 mg/dL Critically high 7.0-18.0 [facility] Comment on above: Performed By: #### B MP #### [facility] [address] [place] [address] Dr. Oscar Paulino Urea nitrogen/Creatinine [Mass ratio] 18.7 mg/mg Normal [facility] Comment on above: Performed By: #### B MP #### [facility] [address] [place] [address] Dr. Oscar Paulino PROTIMEon 08-22-2022 INR Coag (PPP) [Relative time] 1.06 {INR} Normal [facility] Comment on above: Performed By: #### P T, PTT #### [facility] [address] [place] [address] Dr. Oscar Paulino INR GUIDELINES SEE BELOW Normal [facility] Comment on above: Result Comment: ELYSIA RED INR: 2.0 - 3.0 CONDITIONS NOT LISTED BELOW 2.5 - 3.5 FOR PROSTHETIC HEART VALVE REPLACEMENT 2.5 - 3.5 RECURRENT THROMBOSIS Performed By: #### P T, PTT #### [facility] [address] [place] [address] Dr. Oscar Paulino PT Coag (PPP) [Time] 11.4 s Normal 9.0-11.6 [facility] Comment on above: Performed By: #### P T, PTT #### [facility] [address] [place] [address] Dr. Oscar Paulino PTTon 08-22-2022 aPTT Coag (Bld) [Time] 26.6 s Normal 22.3-36.2 [facility] Comment on above: Performed By: #### P T, PTT #### [facility] [address] [place] [address] Dr. Oscar Paulino [facility]25 SARS-CoV-2 (COVID-19) RNA KEIKO+probe Ql (Unsp spec) Not detected Normal NOT DETECTED The [facility] Comment on above: Result Comment: This test is not yet approved or cleared by the [place] FDA. When there are no FDA-approved or cleared tests available, and other criteria are met, FDA can make tests available under an emergency access mechanism called an Emergency Use Authorization (EUA). The EUA for this test is supported by the [place] [facility] [employer] and Human Service's (HHS's) declaration [...] SARS-CoV-2. Performed By: #### C VDTB #### [facility] [address] [place] [address] Dr. Oscar Paulino Covid-19 PCR ([facility])on SARS-CoV-2 (COVID-19) RNA KEIKO+probe Ql (Unsp spec) Not detected Normal NOT DETECTED The [facility] Comment on above: Result Comment: This test is not yet approved or cleared by the [place] FDA. When there are no FDA-approved or cleared tests available, and other criteria are met, FDA can make tests available under an emergency access mechanism called an Emergency Use Authorization (EUA). The EUA for this test is supported by the [place] [employer] Health and Human Service's (HHS's) declaration [...] SARS-CoV-2. Performed By: #### C VDTB #### [facility] [address] [place] [address] Dr. Oscar Paulino CBC AUTO DIFFon 06-28-2022 BASO # 0.0 103/ul Normal 0.0-0.1 [facility] Comment on above: Performed By: #### T SH, LIPID, CMP #### [facility] [address] [place] [address] Dr. Oscar Paulino Basophils/100 WBC (Bld) 0.4 % Normal 0.2-2.0 [facility] Comment on above: Performed By: #### T SH, LIPID, CMP #### [facility] [address] [place] [address] Dr. Oscar Paulino EO # 0.2 103/ul Normal 0.0-0.7 [facility] Comment on above: Performed By: #### T SH, LIPID, CMP #### [facility] [address] [place] [address] Dr. Oscar Paulino Eosinophils/100 WBC (Bld) 7.5 % Critically high 0.9-7.0 [facility] Comment on above: Performed By: #### T SH, LIPID, CMP #### [facility] [address] [place] [address] Dr. Oscar Paulino Erythrocyte distribution width (RBC) [Ratio] 12.3 % Normal 11.0-15.0 [facility] Comment on above: Performed By: #### T SH, LIPID, CMP #### [facility] [address] [place] [address] Dr. Oscar Paulino Hematocrit (Bld) [Volume fraction] 34.0 % Critically low 42.0-54.0 [facility] Comment on above: Performed By: #### T SH, LIPID, CMP #### [facility] [address] [place] [address] Dr. Oscar Paulino Hemoglobin (Bld) [Mass/Vol] 11.6 g/dL Critically low 14.0-18.0 [facility] Comment on above: Performed By: #### T SH, LIPID, CMP #### [facility] [address] [address] [address] Oscar Paulino IG # 0.00 10e3/ul Normal 0.00-0.03 [facility] Comment on above: Performed By: #### T SH, LIPID, CMP #### [facility] [address] [address] [address] Oscar Paulino IG % 0.0 % Normal 0.0-0.5 [facility] Comment on above: Performed By: #### T SH, LIPID, CMP #### [facility] [address] [address] [address] Oscar Paulino LYMPH # 1.0 103/ul Critically low 1.2-3.8 [facility] Comment on above: Performed By: #### T SH, LIPID, CMP #### [facility] [address] [address] [address] Oscar Paulino Lymphocytes/100 WBC (Bld) 40.1 % Normal 20.5-60.0 [facility] Comment on above: Performed By: #### T SH, LIPID, CMP #### [facility] [address] [address] [address] Oscar Paulino MANUAL DIFF REQ NO Normal [facility] Comment on above: Performed By: #### T SH, LIPID, CMP #### [facility] [address] [address] [address] Oscar Paulino MCH (RBC) [Entitic mass] 35.7 pg Critically high 25.9-34.0 [facility] Comment on above: Performed By: #### T SH, LIPID, CMP #### [facility] [address] [address] [address] Oscar Paulino MCHC (RBC) [Mass/Vol] 34.1 g/dL Normal 29.9-35.2 [facility] Comment on above: Performed By: #### T SH, LIPID, CMP #### [facility] [address] [address] [address] Oscar Paulino MCV (RBC) [Entitic vol] 104.6 fL Critically high 80.0-94 .0 [facility] Comment on above: Performed By: #### T SH, LIPID, CMP #### [facility] [address] [place] [address] Dr. Oscar Paulino MONO # 0.2 103/ul Critically low 0.3-0.8 [facility] Comment on above: Performed By: #### T SH, LIPID, CMP #### [facility] [address] [place] [address] Dr. Oscar Paulino Monocytes/100 WBC (Bld) 6.7 % Normal 1.7-12.0 [facility] Comment on above: Performed By: #### T SH, LIPID, CMP #### [facility] [address] [place] [address] Dr. Oscar Paulino NEUT # 1.1 103/ul Critically low 1.4-6.5 [facility] Comment on above: Performed By: #### T SH, LIPID, CMP #### [facility] [address] [place] [address] Dr. Oscar Paulino Neutrophils/100 WBC (Bld) 45.3 % Normal 43.0-75.0 [facility] Comment on above: Performed By: #### T SH, LIPID, CMP #### [facility] [address] [place] [address] Dr. Oscar Paulino Platelet mean volume (Bld) [Entitic vol] 8.4 fL Critically low 9.5-13.5 [facility] Comment on above: Performed By: #### T SH, LIPID, CMP #### [facility] [address] [place] [address] Dr. Oscar Paulino PLT 164 103/ul Normal 150-450 [facility] Comment on above: Performed By: #### T SH, LIPID, CMP #### [facility] [address] [place] [address] Dr. Oscar Paulino RBC 3.25 106/ul Critically low 4.70-6.10 [facility] Comment on above: Performed By: #### T SH, LIPID, CMP #### [facility] [address] [address] [address] Oscar Paulino WBC 2.5 103/ul Critically low 4.0-11.0 [facility] Comment on above: Performed By: #### T SH, LIPID, CMP #### [facility] [address] [address] [address] Oscar Paulino PROF CHEM 8 (BAS METB)on Anion gap [Moles/Vol] 9.9 mmol/L Normal [facility] Comment on above: Performed By: #### B MP #### [facility] [address] [address] [address] Oscar Paulino Calcium [Mass/Vol] 9.4 mg/dL Normal 8.5-10.1 [facility] Comment on above: Performed By: #### B MP #### [facility] [address] [place] [address] Dr. Oscar Paulino Chloride [Moles/Vol] 105 mmol/L Normal 98-107 [facility] Comment on above: Performed By: #### B MP #### [facility] [address] [address] [address] Oscar Paulino CO2 [Moles/Vol] 27.3 mmol/L Normal 21.0-32.0 [facility] Comment on above: Performed By: #### B MP #### [facility] [address] [place] [address] Dr. Oscar Paulino Creatinine [Mass/Vol] 1.05 mg/dL Normal 0.70-1.30 [facility] Comment on above: Performed By: #### B MP #### [facility] [address] [place] [address] Dr. Oscar Paulino EGFR-AF DUTCH >60 Normal >=60 [facility] Comment on above: Performed By: #### B MP #### [facility] [address] [place] [address] Dr. Oscar Paulino EGFR-NON AF DUTCH >60 Normal >=60 [facility] Comment on above: Performed By: #### B MP #### [facility] [address] [place], [place] [id number] Dr. Oscar Paulino Glucose [Mass/Vol] 105 mg/dL Normal 74-106 [facility] Comment on above: Performed By: #### B MP #### [facility] [address] [address] [address] Oscar Paulino Potassium [Moles/Vol] 4.2 mmol/L Normal 3.5-5.1 [facility] Comment on above: Performed By: #### B MP #### [facility] [address] [address] [address] Oscar Paulino Sodium [Moles/Vol] 138 mmol/L Normal 136-145 [facility] Comment on above: Performed By: #### B MP #### [facility] [address] [place] [address] Dr. Oscar Paulino Urea nitrogen [Mass/Vol] 15.0 mg/dL Normal 7.0-18.0 [facility] Comment on above: Performed By: #### B MP #### [facility] [address] [place] [address] Dr. Oscar Paulino Urea nitrogen/Creatinine [Mass ratio] 14.3 mg/mg Normal [facility] Comment on above: Performed By: #### B MP #### [facility] [address] [place] [address] Dr. Oscar Paulino PROTIMEon 06-28-2022 INR Coag (PPP) [Relative time] 1.03 {INR} Normal [facility] Comment on above: Performed By: #### T MANJIT LIPID, CMP #### [facility] [address] [place] [address] Dr. Oscar Paulino INR GUIDELINES SEE BELOW Normal [facility] Comment on above: Result Comment: ELYSIA RED INR: 2.0 - 3.0 CONDITIONS NOT LISTED BELOW 2.5 - 3.5 FOR PROSTHETIC HEART VALVE REPLACEMENT 2.5 - 3.5 RECURRENT THROMBOSIS Performed By: #### T MANJIT LIPID, CMP #### [facility] [address] [place] [address] Dr. Oscar Paulino PT Coag (PPP) [Time] 11.1 s Normal 9.0-11.6 [facility] Comment on above: Performed By: #### T SH, LIPID, CMP #### [facility] [address] [place], [place] [address] Dr. Oscar Paulino PTTon 06-28-2022 aPTT Coag (Bld) [Time] 26.2 s Normal 22.3-36.2 Th e [facility] Comment on above: Performed By: #### T SH, LIPID, CMP #### [facility] [address] [place], [place] [address] Dr. Oscar Paulino Tobacco Screening.on 022 Adult depression screening assessment Yes -[facility] [address] DO Work Phone: Adult depression screening assessment No -[facility] [address] DO Work Phone: Fall risk assessment a) No falls within the last year [facility] [facility] [place] Work Phone: Tobacco use status CP b) No M -[facility] [employer] [address] DO Work Phone: Tobacco Screening. 1-Several days -[facility] [employer] [address] DO Work Phone: Tobacco Screening. 0-Not at all [facility] [employer] [facility] DO Work Phone: Tobacco Screening. 2-More than half the days [facility] [employer] [address] DO Work Phone: Tobacco Screening. Somewhat Difficult [facility] [employer] 250 DO Work Phone: CT STROKE HEAD [...] by: EBONI PETE Date: 2022-04-08 00:27 Normal [facility] CARDIAC STRESS/REST INJE CTIONon 10-03-2021 [facility] CARDIAC STRESS/REST INJECTION Patient Name: NEIL WILCOX STUDY: MYOCARDIAL PERFUSION STRESS TEST WITH LEXISCAN Performing facility: [facility], [address] [place] [address], [address], [address] Provider: Loulou Arreguin RN, COIN BOX COLLECTOR PCP: Dr. Paul Cooney Supervising provider: Erick Wise DO, [facility] INDICATION: HTN Fatigue HISTORY: Gender: M; Age: 75 y/o ; Height: 0 cm; Weight: 0 kg. High Cholesterol; HTN; Fatigue; TIA Vertigo Denies smoking. COMPARISON: No comparison. ACCESSION NUMBER(S): [id number]; [id number]; [id number] ORDERING CLINICIAN: LOULOU ARREGUIN TECHNIQUE: ONE DAY [...] Electronically signed by: MATTI MIDDLETON MD Normal [facility] Risk Screeningon 08-31 Fall risk assessment a) No falls within the last year [facility] [address] DO Work Phone: Tobacco use status [facility] b) No M [facility] [address] DO Work Phone: Tobacco Screening.on Fall risk assessment a) No falls within the last year [facility] [address] DO Work Phone: Tobacco use status [facility] b) No M [facility] [address] DO Work Phone: BASIC METABOLIC PANELon 03-24 Calcium [Mass/Vol] 8.9 mg/dL Normal 8.5-10.4 [facility] Comment on above: Result Comment: RESU LT CHECKED Anion gap [Moles/Vol] 9 mmol/L Normal 0-19 [facility] Chloride [Moles/Vol] 104 mmol/L Normal 97-107 [facility] CO2 [Moles/Vol] 24 mmol/L Normal 24-31 [facility] Creatinine [Mass/Vol] 0.9 mg/dL Normal 0.4-1.6 [facility] ESTIMATED GFR 88 mL/min/1.73 m2 Normal [facility] Comment on above: Result Comment: GFR ml/min/1.73m2 Stage ----- 90 1 60-89 2 30-59 3 15-29 4 <15 5 For -Americans, multiply EGFR result by 1.210 Calculation not validated for patients under 18 years of age. Performed at [address] [address] Glucose [Mass/Vol] 134 mg/dL High 65-99 [facility] Potassium [Moles/Vol] 3.9 mmol/L Normal 3.4-5.1 [facility] Sodium [Moles/Vol] 137 mmol/L Normal 133-145 [facility] Urea nitrogen [Mass/Vol] 13 mg/dL Normal 8-25 [facility] Urea nitrogen/Creatinine [Mass ratio] 14.4 mg/mg Normal 8-21 [facility] CBC with Diffon 04-06-2021 AB IMMATURE NEUT 0.00 K/UL Normal 0.0-0.1 [facility] ABS BASO 0.00 K/UL Normal 0.00-0.22 [facility] ABS EOS 0.02 K/UL Normal 0-0.45 [facility] ABS NEUTROPHILS 3.73 K/UL Normal 1.8-7.7 [facility] ABS.NEUT.CALCULATED 3.73 K/UL Normal [facility] Comment on above: Result Comment: Perf ormed at [address] [address] Basophils/100 WBC (Bld) 0.00 % Normal 0-1 L [facility] DIFF TYPE AUTO DIFF Normal [facility] Eosinophils/100 WBC (Bld) 0.40 % Normal 0-3 [facility] Erythrocyte distribution width (RBC) [Ratio] 11.6 % Low 11.7-15.0 [facility] Hematocrit (Bld) [Volume fraction] 29.6 % Low 41-50 [facility] Hemoglobin (Bld) [Mass/Vol] 10.0 g/dL Low 13.5-16.5 [facility] Lymphocytes (Bld) [#/Vol] 0.97 10*3/uL Low 1.2-3.2 [facility] Lymphocytes/100 WBC (Bld) 19.10 % Low 20-40 [facility] MCH (RBC) [Entitic mass] 35.5 pg High 26-34 [facility] MCHC 33.8 % Normal 31-37 [facility] MCV (RBC) [Entitic vol] 105.0 fL High 80-100 [facility] MEAN PLT VOL 8.4 CU Normal 7.0-12.6 [facility] Monocytes (Bld) [#/Vol] 0.35 10*3/uL Normal 0-0.8 [facility] Monocytes/100 WBC (Bld) 6.90 % Normal 0-8 [facility] Neutrophils/100 WBC (Bld) 0.00 % Normal 0.0-1.0 [facility] Neutrophils/100 WBC (Bld) 73.60 % High 50-70 [facility] Platelets (Bld) [#/Vol] 115 10*3/uL Low 150-450 [facility] RBC (Bld) [#/Vol] 2.82 10*6/uL Low 4.5-5.5 [facility] RDW-SD 44.8 FL Normal 37.0-54.0 [facility] WBC (Bld) [#/Vol] 5.1 10*3/uL Normal 4.5-11.0 [facility] PROTHROMBIN TIMEon INR Coag (PPP) [Relative time] 1.0 {INR} Normal 0.86-1.16 [facility] Comment on above: Result Comment: INR Theraputic Range: 2.0-3.5 Performed at [place] [address] PT Coag (PPP) [Time] 11.3 s Normal 9.3-12.7 [facility] ANTICOAGULANT INFORMATION NOT REPORTED TO LABORATORY Normal [facility] PTTon 04-06-2021 aPTT Coag (Bld) [Time] 21.9 s Low 22.0-32.5 [facility] Comment on above: Result Comment: Perf ormed at [place] [id number] CBC with Diffon 04-01-2021 AB IMMATURE NEUT 0.00 K/UL Normal 0.0-0.1 [facility] ABS BASO 0.02 K/UL Normal 0.00-0.22 [facility] ABS EOS 0.19 K/UL Normal 0-0.45 [facility] ABS NEUTROPHILS 1.56 K/UL Low 1.8-7.7 [facility] ABS.NEUT.CALCULATED 1.56 K/UL Normal [facility] Comment on above: Result Comment: [place] [facility] [address] [facility] [address] Basophils/100 WBC (Bld) 0.60 % Normal 0-1 L [facility] DIFF TYPE AUTO DIFF Normal [facility] Eosinophils/100 WBC (Bld) 5.30 % High 0-3 [facility] Erythrocyte distribution width (RBC) [Ratio] 11.6 % Low 11.7-15.0 [facility] Hematocrit (Bld) [Volume fraction] 40.9 % Low 41-50 [facility] Hemoglobin (Bld) [Mass/Vol] 13.4 g/dL Low 13.5-16.5 [facility] Lymphocytes (Bld) [#/Vol] 1.44 10*3/uL Normal 1.2-3.2 [facility] Lymphocytes/100 WBC (Bld) 40.30 % High 20-40 [facility] MCH (RBC) [Entitic mass] 35.2 pg High 26-34 [facility] MCHC 32.8 % Normal 31-37 [facility] MCV (RBC) [Entitic vol] 107.3 fL High 80-100 [facility] MEAN PLT VOL 8.5 CU Normal 7.0-12.6 [facility] Monocytes (Bld) [#/Vol] 0.36 10*3/uL Normal 0-0.8 [facility] Monocytes/100 WBC (Bld) 10.10 % High 0-8 L [facility] Neutrophils/100 WBC (Bld) 0.00 % Normal 0.0-1.0 [facility] Neutrophils/100 WBC (Bld) 43.70 % Low 50-70 [facility] Platelets (Bld) [#/Vol] 149 10*3/uL Low 150-450 [facility] RBC (Bld) [#/Vol] 3.81 10*6/uL Low 4.5-5.5 [facility] RDW-SD 46.3 FL Normal 37.0-54.0 [facility] WBC (Bld) [#/Vol] 3.6 10*3/uL Low 4.5-11.0 [facility] COMPREHENSIVE METABOLIC PANE Melvin 04-01-2021 Albumin [Mass/Vol] 4.1 g/dL Normal 3.5-5.0 [facility] Albumin/Globulin [Mass ratio] 1.2 {ratio} Low 1.5-3.0 [facility] ALP [Catalytic activity/Vol] 77 U/L Normal 35-125 [facility] ALT [Catalytic activity/Vol] 16 U/L Normal 5-40 [facility] Anion gap [Moles/Vol] 10 mmol/L Normal 0-19 [facility] AST [Catalytic activity/Vol] 18 U/L Normal 5-40 [facility] Bilirubin [Mass/Vol] 0.3 mg/dL Normal 0.1-1.2 [facility] Calcium [Mass/Vol] 10.0 mg/dL Normal 8.5-10.4 [facility] Chloride [Moles/Vol] 104 mmol/L Normal 97-107 [facility] CO2 [Moles/Vol] 27 mmol/L Normal 24-31 [facility] Creatinine [Mass/Vol] 0.9 mg/dL Normal 0.4-1.6 [facility] ESTIMATED GFR 88 mL/min/1.73 m2 Normal [facility] Comment on above: Result Comment: GFR ml/min/1.73m2 Stage ----- 90 1 60-89 2 30-59 3 15-29 4 <15 5 For -Americans, multiply EGFR result by 1.210 Calculation not validated for patients under 18 years of age. Performed at [facility] [address] [facility] [address] Globulin (S) [Mass/Vol] 3.3 g/dL Normal 1.9-3.7 [facility] Glucose [Mass/Vol] 95 mg/dL Normal 65-99 [facility] Potassium [Moles/Vol] 4.3 mmol/L Normal 3.4-5.1 [facility] Protein [Mass/Vol] 7.4 g/dL Normal 5.9-7.9 [facility] Sodium [Moles/Vol] 141 mmol/L Normal 133-145 [facility] Urea nitrogen [Mass/Vol] 16 mg/dL Normal 8-25 [facility] Urea nitrogen/Creatinine [Mass ratio] 17.8 mg/mg Normal 8-21 [facility] SARS-CoV-2,INFLUENZA A/B NUC LEIC ACID TESTon 04-01-2021 EUA DISCLAIMER Normal [facility] Comment on above: Result Comment: [...] is terminated or revoked sooner. Performed at [place] [address] FLU A by PCR Negative [facility] FLU B by PCR Negative Normal [facility] SARS-CoV-2 (COVID-19) RNA KEIKO+probe Ql (Unsp spec) Negative Normal NEG [facility] TYPE AND SCREENon 04-01-2021 TYPE AND SCREEN BLOOD COMPONENT TYPE - RED CELL GROUP Performed at [address] [address] UNITS ORDERED - 0 Performed at [place] [id number] SPECIMEN EXPIRATION - 04/08/2021 Performed at [address] [address] ABO/RH(D) - A POSITIVE Performed at [address] [address] ANTIBODY SCREEN - NEGATIVE Performed at [address] [address] ARM BAND NUMBER - [id number] Performed at [address] [address] SURGERY DATE - [id number] Performed at [address] [address] TEST ORDERED - TYPE AND SCREEN Performed at [place] [id number] PT TRANSFUSION HISTORY - BLOOD BANK RECORD SEARCH COMPLETED NO PREVIOUS RECORD NO PREVIOUS TRANSFUSIONS IN LIFETIME Performed at [address] [address] Normal [facility] Comment on above: Performed By: #### T YS #### Main Laboratory [address] [address] UA-REFLEX TO CULTUREon 04-01 RBC NONE SEEN Normal 0-3 [facility] Urinalysis dipstick W Reflex Microscopic panel (U) MANUAL MICROSCOPIC URINES Normal [facility] WBC NONE SEEN Normal 0-3 [facility] OTHER Normal [facility] Comment on above: Result Comment: MUCO US Performed at [place] [address] Bacteria identified Cx Nom (U) CULTURE NOT INDICATED Normal [facility] Comment on above: Result Comment: CULT URE NOT INDICATED Performed at [place] [address] BILI Negative Normal [facility] Clarity (U) CLEAR Normal [facility] Color (U) YELLOW Normal [facility] GLUC Negative Normal NEG [facility] Hemoglobin Ql (U) Negative Normal NEG [facility] KET Negative Normal NEG [facility] LEUK Negative Normal NEG [facility] NIT Negative Normal NEG [facility] pH (U) 6.5 [pH] Normal 4.6-8.0 [facility] PROT TRACE Abnormal NEG [facility] SP GRAV,URINE 1.025 Normal 1.005-1.030 [facility] URO 0.2 MG/DL Normal 0-1.0 [facility] Basophils Auto (Bld) [#/Vol] on 02-07-2021 Basophils (Bld) [#/Vol] 0.0 10*3/uL 0.0-0.[address] [facility] Basophils/100 WBC Auto (Bld) on 02-07-2021 Basophils/100 WBC (Bld) 0.2 % F [facility] Blood hemoglobin measurement (mass/volume)on 02-07-2021 Hemoglobin (Bld) [Mass/Vol] 12.8 g/dL 13.0-17.[address] [facility] Blood leukocytes automated c ount (number/volume)on 02-07-2021 WBC (Bld) [#/Vol] 3.5 10*3/uL 4.5-11.0 [facility] Body fluid albumin measureme nt (mass/volume)on 02-07-2021 Albumin (Body fld) [Mass/Vol] 3.7 g/dL 3.2-5.[address] [facility] Cholesterol [Mass/volume] in Serum or Plasmaon 02-07-2021 Cholesterol [Mass/Vol] 127 mg/dL 140-200 Fi [facility] Comment on above: Chol less than 200 m g/dl low riskChol 201-239 mg/dl borderline riskChol 240 mg/dl and greater high risk Cholesterol in LDL Calc [Mas s/Vol]on 02-07-2021 Cholesterol in LDL [Mass/Vol] 66 mg/dL 0-[address] [facility] Comment on above: LDL ATP III CLASSIFI CATIONLDL less than 100 mg/dL OptimalLDL 100-129 mg/dL Near or above optimalLDL 130-159 mg/dL Borderline highLDL 160-189 mg/dL HighLDL greater than 189 mg/dL Very high Cholesterol in VLDL Calc [Ma ss/Vol]on 02-07-2021 Cholesterol in VLDL [Mass/Vol] 10 mg/dL [facility] Creatinine and Glomerular fi ltration rate.predicted panel (S/P/Bld)on 02-07-2021 Creatinine [Mass/Vol] 0.95 mg/dL 0.64-1.27 [facility] Eosinophils Auto (Bld) [#/Vo l]on 02-07-2021 Eosinophils (Bld) [#/Vol] 0.2 10*3/uL 0.0-0.[address] [facility] Eosinophils/100 WBC Auto (Bl d)on 02-07-2021 Eosinophils/100 WBC (Bld) 5.2 % [facility] Erythrocyte distribution wid th Auto (RBC) [Ratio]on 02-07-2021 Erythrocyte distribution width (RBC) [Ratio] 13.0 % 12.0-14.[address] [facility] Estimated glomerular filtrat ion rate (GFR) non- Americanon 02-07-2021 GFR/1.73 sq M.predicted among non-blacks MDRD (S/P/Bld) [Vol rate/Area] > 60 mL/Min [facility] Globulin Calc (S) [Mass/Vol] on 02-07-2021 Globulin (S) [Mass/Vol] 3.6 g/dL [facility] Hematocrit Auto (Bld) [Volum e fraction]on 02-07-2021 Hematocrit (Bld) [Volume fraction] 38.4 % 38.8-50.[address] [facility] Laboratory - Hematology and Cell countson 02-07-2021 Nucleated RBC/100 WBC (Bld) [Ratio] 0.1 % 0-0.[address] [facility] Lymphocytes Auto (Bld) [#/Vo l]on 02-07-2021 Lymphocytes (Bld) [#/Vol] 1.2 10*3/uL 1.00-4.[address] [facility] Lymphocytes/100 WBC Auto (Bl d)on 02-07-2021 Lymphocytes/100 WBC (Bld) 33.5 % [facility] MCH Auto (RBC) [Entitic mass ]on 02-07-2021 MCH (RBC) [Entitic mass] 35.8 pg 27.5-35.[address] [facility] MCHC Auto (RBC) [Mass/Vol]on 02-07-2021 MCHC (RBC) [Mass/Vol] 33.4 g/dL 32.5-35.6 [facility] MCV Auto (RBC) [Entitic vol] on 02-07-2021 MCV (RBC) [Entitic vol] 107.1 fL 83.5-101 [facility] Monocytes Auto (Bld) [#/Vol] on 02-07-2021 Monocytes (Bld) [#/Vol] 0.4 10*3/uL 0.0-0.[address] [facility] Monocytes/100 WBC Auto (Bld) on 02-07-2021 Monocytes/100 WBC (Bld) 10.3 % [facility] Neutrophils Auto (Bld) [#/Vo l]on 02-07-2021 Neutrophils (Bld) [#/Vol] 1.8 10*3/uL 1.8-7.[address] [facility] Neutrophils/100 WBC Auto (Bl d)on 02-07-2021 Neutrophils/100 WBC (Bld) 50.8 % [facility] No Panel Informationon 02-07 Estimated GFR () > 60 mL/Min [facility] Comment on above: GFR estimated refere nce range: According to KDOQI guidelines, <60 ml/min/1.73m2 is sufficient to diagnose a patient with chronic kidney disease. Pharmacy Creatinine Clearance (Chem N/A [facility] Platelet mean volume Auto (B ld) [Entitic vol]on 02-07-2021 Platelet mean volume (Bld) [Entitic vol] 6.7 fL 6.6-10.[address] [facility] Platelets Auto (Bld) [#/Vol] on 02-07-2021 Platelets (Bld) [#/Vol] 220 10*3/uL 150-[address] [facility] Protein [Mass/volume] in Ser um or Plasmaon 02-07-2021 Protein [Mass/Vol] 7.3 g/dL 6.1-7.9 [facility] RBC Auto (Bld) [#/Vol]on RBC (Bld) [#/Vol] 3.59 10*6/uL 3.90-5.60 [facility] Serum or plasma alanine huntley otransferase measurement without P-5'-P (enzymatic activion 02-07-2021 ALT No additional P-5'-P [Catalytic activity/Vol] 13 U/L 10-[address] [facility] Serum or plasma albumin/glob ulin mass ratioon 02-07-2021 Albumin/Globulin [Mass ratio] 1.0 {ratio} [facility] Serum or plasma alkaline latoya sphatase measurement (enzymatic activity/volume)on 02-07-2021 ALP [Catalytic activity/Vol] 71 U/L 32-[address] [facility] Serum or plasma aspartate am inotransferase measurement (enzymatic activity/volume)on 02-07-2021 AST [Catalytic activity/Vol] 13 U/L 10-[address] [facility] Serum or plasma calcium ilana urement (mass/volume)on 02-07-2021 Calcium [Mass/Vol] 9.7 mg/dL 8.2-10.2 [facility] Serum or plasma chloride rishabh surement (moles/volume)on 02-07-2021 Chloride [Moles/Vol] 102 mmol/L 95-114 [facility] Serum or plasma glucose ilana urement (mass/volume)on 02-07-2021 Glucose [Mass/Vol] 95 mg/dL 70-100 [facility] Comment on above: ADA recommended refe rence rangeRandom Glucose Reference Range is dependent on time and content of last meal. Glucose of more than 200 mg/dL in a nonstressed, ambulatory subject supports the diagnosis of Diabetes Mellitus. Serum or plasma high density lipoprotein (HDL) cholesterol measurementon 02-07-2021 Cholesterol in HDL [Mass/Vol] 51 mg/dL 29-[address] [facility] Comment on above: HDL CHOL ATP-III CLA SSIFICATION Cardiovascular RiskHDL > or equal to 60 mg/dL LOWHDL < 40 mg/dL HIGH Serum or plasma potassium me asurement (moles/volume)on 02-07-2021 Potassium [Moles/Vol] 4.5 mmol/L 3.5-5.1 [facility] Serum or plasma sodium measu rement (moles/volume)on 02-07-2021 Sodium [Moles/Vol] 137 mmol/L 136-146 [facility] Serum or plasma total biliru bin measurement (mass/volume)on 02-07-2021 Bilirubin [Mass/Vol] 0.6 mg/dL 0.3-1.2 [facility] Serum or plasma total carbon dioxide measurement (moles/volume)on 02-07-2021 CO2 [Moles/Vol] 24.7 mmol/L 22.0-30.0 [facility] Serum or plasma total choles terol/high density lipoprotein (HDL) cholesterol mass noni 02-07-2021 Cholesterol.total/Suzette sterol in HDL [Mass ratio] 2.5 {ratio} [facility] Serum or plasma urea nitroge n measurement (mass/volume)on 02-07-2021 Urea nitrogen [Mass/Vol] 19 mg/dL 9- [facility] TSH DL <= 0.005 mIU/L Qnon 0 02-07-2021 TSH Qn 1.17 m[IU]/L 0.45-5.[address] [facility] Thyroxine (T4) free [Mass/vo lume] in Serum or Plasmaon 02-07-2021 Free T4 [Mass/Vol] 0.88 ng/dL 0.61-1.12 [facility] Triglyceride [Mass/volume] i n Serum or Plasmaon 02-07-2021 Triglyceride [Mass/Vol] 52 mg/dL 35-149 F [facility] Comment on above: TRIG ATP III CLASSIF ICATIONTRIG less than 150 mg/dL NormalTRIG 150-199 mg/dL Borderline highTRIG 200-500 mg/dL High TRIG greater than 500 mg/dL Very highStandard traceable to the Center for Disease Conrtrol and Prevention (CDC) test method. WOUND CULTURE-TISSUEon 12-22 WOUND CULTURE-TISSUE Specimen source XXX : SHOULDER RIGHT Performed at [place] [id number] Service Cmnt XXX-Imp: HOLD FOR 2 WEEKS Microscopic observation: NO ORGANISMS SEEN 1+ WBC Bacteria identified: ANAEROBIC GRAM POSITIVE BACILLI ONE COLONY MOST CLOSELY RESEMBLING CUTIBACTERIUM (PROPIONIBACTERIUM) ACNES Performed at [facility],[address] [place] [address] : FINAL 12/22/2020 Normal [facility] Comment on above: Performed By: #### T [facility] #### [facility] [place] [address] CBC with Diffon 12-17-2020 AB IMMATURE NEUT 0.00 K/UL Normal 0.0-0.1 [facility] ABS BASO 0.00 K/UL Normal 0.00-0.22 [facility] ABS EOS 0.00 K/UL Normal 0-0.45 [facility] ABS NEUTROPHILS 2.47 K/UL Normal 1.8-7.7 [facility] ABS.NEUT.CALCULATED 2.47 K/UL Normal [facility] Comment on above: Result Comment: Perf ormed at [place] [id number] Basophils/100 WBC (Bld) 0.00 % Normal 0-1 [facility] DIFF TYPE AUTO DIFF Normal [facility] Eosinophils/100 WBC (Bld) 0.00 % Normal 0-3 [facility] Erythrocyte distribution width (RBC) [Ratio] 12.1 % Normal 11.7-15.0 [facility] Hematocrit (Bld) [Volume fraction] 30.6 % Low 41-50 [facility] Hemoglobin (Bld) [Mass/Vol] 10.4 g/dL Low 13.5-16.5 [facility] Lymphocytes (Bld) [#/Vol] 0.75 10*3/uL Low 1.2-3.2 [facility] Lymphocytes/100 WBC (Bld) 20.90 % Normal 20-40 [facility] MCH (RBC) [Entitic mass] 36.2 pg High 26-34 [facility] MCHC 34.0 % Normal 31-37 [facility] MCV (RBC) [Entitic vol] 106.6 fL High 80-100 [facility] MEAN PLT VOL 8.4 CU Normal 7.0-12.6 [facility] Monocytes (Bld) [#/Vol] 0.37 10*3/uL Normal 0-0.8 [facility] Monocytes/100 WBC (Bld) 10.30 % High 0-8 [facility] Neutrophils/100 WBC (Bld) 0.00 % Normal 0.0-1.0 [facility] Neutrophils/100 WBC (Bld) 68.80 % Normal 50-70 [facility] Platelets (Bld) [#/Vol] 122 10*3/uL Low 150-450 [facility] RBC (Bld) [#/Vol] 2.87 10*6/uL Low 4.5-5.5 [facility] RDW-SD 47.8 FL Normal 37.0-54.0 [facility] WBC (Bld) [#/Vol] 3.6 10*3/uL Low 4.5-11.0 [facility] COMPREHENSIVE METABOLIC PANE Melvin 12-17-2020 Albumin [Mass/Vol] 3.5 g/dL Normal 3.5-5.0 [facility] Albumin/Globulin [Mass ratio] 1.3 {ratio} Low 1.5-3.0 [facility] ALP [Catalytic activity/Vol] 63 U/L Normal 35-125 [facility] ALT [Catalytic activity/Vol] 10 U/L Normal 5-40 [facility] Comment on above: Result Comment: Perf ormed at [facility] [address] [address] [facility] [address] Anion gap [Moles/Vol] 11 mmol/L Normal 0-19 [facility] AST [Catalytic activity/Vol] 15 U/L Normal 5-40 [facility] Bilirubin [Mass/Vol] 0.7 mg/dL Normal 0.1-1.2 [facility] Calcium [Mass/Vol] 9.0 mg/dL Normal 8.5-10.4 [facility] Chloride [Moles/Vol] 99 mmol/L Normal 97-107 [facility] CO2 [Moles/Vol] 26 mmol/L Normal 24-31 [facility] Creatinine [Mass/Vol] 0.9 mg/dL Normal 0.4-1.6 [facility] Globulin (S) [Mass/Vol] 2.7 g/dL Normal 1.9-3.7 [facility] Glucose [Mass/Vol] 129 mg/dL High 65-99 [facility] Potassium [Moles/Vol] 3.8 mmol/L Normal 3.4-5.1 [facility] Protein [Mass/Vol] 6.2 g/dL Normal 5.9-7.9 [facility] Sodium [Moles/Vol] 136 mmol/L Normal 133-145 [facility] Urea nitrogen [Mass/Vol] 13 mg/dL Normal 8-25 [facility] Urea nitrogen/Creatinine [Mass ratio] 14.4 mg/mg Normal 8-21 [facility] FREE T4on 12-09-2020 Free T4 [Mass/Vol] 1.2 ng/dL Normal 0.9-1.7 [facility] Comment on above: Result Comment: Perf ormed at [place] [address] Performed By: #### T [facility] #### [place] [address] CBC with Diffon 12-08-2020 ABS NEUTROPHILS 1.38 K/UL Low 1.8-7.7 [facility] Comment on above: Result Comment: DARELL ECTED ON 12/08 AT 1254: PREVIOUSLY REPORTED 1.39 PLATELET ESTIMATE ADEQUATE Normal [facility] RBC morphology finding Nom (Bld) CONSISTENT WITH PERIPHERAL SMEAR Normal [facility] WBC MORPHOLOGY SMEAR REVIEWED AND FOUND CONSISTENT WITH AUTOMATED DIFFERENTIAL Normal [facility] AB IMMATURE NEUT 0.00 K/UL Normal 0.0-0.1 [facility] ABS BASO 0.01 K/UL Normal 0.00-0.22 [facility] ABS EOS 0.20 K/UL Normal 0-0.45 [facility] ABS.NEUT.CALCULATED 1.39 K/UL Normal [facility] Comment on above: Result Comment: Perf [place]med [place] [facility] [address] [facility] [address] Basophils/100 WBC (Bld) 0.30 % Normal 0-1 L [facility] DIFF TYPE AUTO DIFF Normal [facility] Eosinophils/100 WBC (Bld) 6.40 % High 0-3 [facility] Erythrocyte distribution width (RBC) [Ratio] 11.9 % Normal 11.7-15.0 [facility] Hematocrit (Bld) [Volume fraction] 40.0 % Low 41-50 [facility] Hemoglobin (Bld) [Mass/Vol] 13.5 g/dL Normal 13.5-16.5 [facility] Lymphocytes (Bld) [#/Vol] 1.20 10*3/uL Normal 1.2-3.2 [facility] Lymphocytes/100 WBC (Bld) 38.60 % Normal 20-40 [facility] MCH (RBC) [Entitic mass] 36.0 pg High 26-34 [facility] MCHC 33.8 % Normal 31-37 [facility] MCV (RBC) [Entitic vol] 106.7 fL High 80-100 [facility] MEAN PLT VOL 8.5 CU Normal 7.0-12.6 [facility] Monocytes (Bld) [#/Vol] 0.31 10*3/uL Normal 0-0.8 [facility] Monocytes/100 WBC (Bld) 10.00 % High 0-8 [facility] Neutrophils/100 WBC (Bld) 0.00 % Normal 0.0-1.0 [facility] Neutrophils/100 WBC (Bld) 44.70 % Low 50-70 [facility] Platelets (Bld) [#/Vol] 168 10*3/uL Normal 150-450 [facility] RBC (Bld) [#/Vol] 3.75 10*6/uL Low 4.5-5.5 [facility] RDW-SD 46.6 FL Normal 37.0-54.0 [facility] WBC (Bld) [#/Vol] 3.1 10*3/uL Low 4.5-11.0 [facility] COMPREHENSIVE METABOLIC PANE Emlvin 12-08-2020 Albumin [Mass/Vol] 4.2 g/dL Normal 3.5-5.0 [facility] Albumin/Globulin [Mass ratio] 1.3 {ratio} Low 1.5-3.0 [facility] ALP [Catalytic activity/Vol] 77 U/L Normal 35-125 [facility] ALT [Catalytic activity/Vol] 10 U/L Normal 5-40 [facility] Anion gap [Moles/Vol] 10 mmol/L Normal 0-19 [facility] AST [Catalytic activity/Vol] 16 U/L Normal 5-40 [facility] Bilirubin [Mass/Vol] 0.7 mg/dL Normal 0.1-1.2 [facility] Calcium [Mass/Vol] 9.6 mg/dL Normal 8.5-10.4 [facility] Chloride [Moles/Vol] 102 mmol/L Normal 97-107 [facility] CO2 [Moles/Vol] 28 mmol/L Normal 24-31 [facility] Creatinine [Mass/Vol] 1.1 mg/dL Normal 0.4-1.6 [facility] ESTIMATED GFR 70 mL/min/1.73 m2 Normal [facility] Comment on above: Result Comment: GFR ml/min/1.73m2 Stage ----- 90 1 60-89 2 30-59 3 15-29 4 <15 5 For -Americans, multiply EGFR result by 1.210 Calculation not validated for patients under 18 years of age. Performed at [facility] [address] [facility] [address] Globulin (S) [Mass/Vol] 3.2 g/dL Normal 1.9-3.7 [facility] Glucose [Mass/Vol] 94 mg/dL Normal 65-99 [facility] Potassium [Moles/Vol] 4.1 mmol/L Normal 3.4-5.1 [facility] Protein [Mass/Vol] 7.4 g/dL Normal 5.9-7.9 [facility] Sodium [Moles/Vol] 140 mmol/L Normal 133-145 [facility] Urea nitrogen [Mass/Vol] 15 mg/dL Normal 8-25 [facility] Urea nitrogen/Creatinine [Mass ratio] 13.6 mg/mg Normal 8-21 [facility] EKGon 12-08-2020 Electrocardiogram EKG Ventricular Rate : 57 BPM Atrial Rate : 57 BPM P-R Interval : 174 ms QRS Duration : 102 ms Q-T Interval : 430 ms QTC Calculation(Bazett) : 418 ms Calculated P [place] : 74 degrees Calculated R [place] : 56 degrees Calculated T [place] : 69 degrees Diagnosis:Sinus bradycardia with Premature atrial complexes and Premature ventricular complexes or Fusion complexes Otherwise normal ECG When compared with ECG of 08-DEC-2020 11:04, Premature atrial complexes are now Present Confirmed by XIN OTNG DO ([id number]) on 12/10/2020 9:36:45 AM [facility] Electrocardiogram EKG Ventricular Rate : 51 BPM Atrial Rate : 51 BPM P-R Interval : 186 ms QRS Duration : 102 ms Q-T Interval : 432 ms QTC Calculation(Bazett) : 398 ms Calculated P [place] : 70 degrees Calculated R [place] : 44 degrees Calculated T [place] : 63 degrees Diagnosis:Sinus bradycardia with occasional Premature ventricular complexes Otherwise normal ECG No previous ECGs available Confirmed by XIN TONG DO ([id number]) on 12/10/2020 9:37:02 AM [facility] SARS-CoV-2,INFLUENZA A/B NUC LEIC ACID TESTon 12-08-2020 EUA DISCLAIMER [facility] Comment on above: Result Comment: This [...] is terminated or revoked sooner. Performed at [facility] [address] [facility] [address] FLU A by PCR Negative [facility] FLU B by PCR Negative [facility] SARS-CoV-2 (COVID-19) RNA KEIKO+probe Ql (Unsp spec) Negative Normal NEG [facility] TSHon 12-08-2020 TSH 0.24 MIU/L Low 0.27-4.20 [facility] Comment on above: Result Comment: Perf ormed at [facility] [address] [address] [facility] [address] Performed By: #### T [facility] ####Main [place] [address] [place] [address] UA-REFLEX TO CULTUREon 12-08 RBC OCC Normal 0-3 [facility] Urinalysis dipstick W Reflex Microscopic panel (U) MANUAL MICROSCOPIC URINES Normal [facility] WBC OCC Normal 0-3 [facility] OTHER Normal [facility] Comment on above: Result Comment: PRES ENT MUCOUS Performed at [address] [address] Bacteria identified Cx Nom (U) CULTURE NOT INDICATED Normal [facility] Comment on above: Result Comment: CULT URE NOT INDICATED Performed at [address] [address] BILI Negative Normal NEG [facility] Clarity (U) CLEAR Normal [facility] Color (U) YELLOW Normal [facility] GLUC Negative Normal NEG [facility] Hemoglobin Ql (U) Negative Normal NEG [facility] KET Negative Normal NEG [facility] LEUK Negative Normal NEG [facility] NIT Negative Normal NEG [facility] pH (U) 6.0 [pH] Normal 4.6-8.0 [facility] PROT TRACE Abnormal NEG [facility] SP GRAV,URINE 1.025 Normal 1.005-1.030 [facility] URO 0.2 MG/DL Normal 0-1.0 [facility] B12/Folate Panelon Cobalamin (Vitamin B12) [Mass/Vol] 507 pg/mL Normal 232-1245 [facility] Comment on above: Performed By: #### F T4, B12FOL, TSHX #### [address] [place], [place] [phone] [employer] Operator: Juan F Dominguez MD Folic Acid 10.6 ng/mL Normal >4.8 [facility] Comment on above: Performed By: #### F T4, B12FOL, TSHX #### [address] [place], [place] [phone] [employer] Setup Operator: Juan F Dominguez MD T4, Freeon 10-13-2020 Thyroxine, Free 0.97 ng/dL 0.93 - 1.7 ng/dL [place], [place] TSH w/reflex to FT4on 2020 TSH Qn 0.04 m[IU]/L Low 0.30-5.00 [facility] Comment on above: Performed By: #### F T4, B12FOL, TSHX #### [facility] [place], [place] [phone] [employer] Setup Operator: Juan F Dominguez MD TSH with Reflexon 10-13-2020 Interpretation and review of laboratory results Abnormal [place], [place] TSH Qn 0.04 m[IU]/L Low [place] Thyroxine, Freeon 10-13-2020 Thyroxine, Free 0.97 ng/dL Normal 0.93-1.70 [facility] Comment on above: Performed By: #### F T4, B12FOL, TSHX #### [facility] [address] [place] [phone] [employer] Setup Operator: Juan F Dominguez MD Vitamin B12 & Folateon 10-13 Cobalamin (Vitamin B12) [Mass/Vol] 507 pg/mL 232 - 1245 pg/mL [place], [place] Folate 10.6 ng/mL >4.8 [place], [place] C REACTIVE PROTEINon 021 C REACTIVE PROTEIN 0.3 MG/DL Normal 0-2.0 [facility] Comment on above: Result Comment: LESS THAN Performed at [address] [address] Performed By: #### C RP #### Main Laboratory [address] [address] CBC with Diffon 10-11-2020 AB IMMATURE NEUT 0.00 K/UL Normal 0.0-0.1 [facility] ABS BASO 0.02 K/UL Normal 0.00-0.22 [facility] ABS EOS 0.21 K/UL Normal 0-0.45 [facility] ABS NEUTROPHILS 1.64 K/UL Low 1.8-7.7 [facility] ABS.NEUT.CALCULATED 1.64 K/UL Normal [facility] Comment on above: Result Comment: [place] [facility] [address] [address] [facility] [address] Basophils/100 WBC (Bld) 0.50 % Normal 0-1 L [facility] DIFF TYPE AUTO DIFF Normal [facility] Eosinophils/100 WBC (Bld) 5.10 % High 0-3 [facility] Erythrocyte distribution width (RBC) [Ratio] 11.3 % Low 11.7-15.0 [facility] Hematocrit (Bld) [Volume fraction] 39.6 % Low 41-50 [facility] Hemoglobin (Bld) [Mass/Vol] 13.6 g/dL Normal 13.5-16.5 [facility] Lymphocytes (Bld) [#/Vol] 1.74 10*3/uL Normal 1.2-3.2 [facility] Lymphocytes/100 WBC (Bld) 42.00 % High 20-40 [facility] MCH (RBC) [Entitic mass] 36.2 pg High 26-34 [facility] MCHC 34.3 % Normal 31-37 [facility] MCV (RBC) [Entitic vol] 105.3 fL High 80-100 L [facility] MEAN PLT VOL 8.4 CU Normal 7.0-12.6 [facility] Monocytes (Bld) [#/Vol] 0.53 10*3/uL Normal 0-0.8 [facility] Monocytes/100 WBC (Bld) 12.80 % High 0-8 L [facility] Neutrophils/100 WBC (Bld) 0.00 % Normal 0.0-1.0 [facility] Neutrophils/100 WBC (Bld) 39.60 % Low 50-70 [facility] Platelets (Bld) [#/Vol] 186 10*3/uL Normal 150-450 [facility] RBC (Bld) [#/Vol] 3.76 10*6/uL Low 4.5-5.5 [facility] RDW-SD 44.8 FL Normal 37.0-54.0 [facility] WBC (Bld) [#/Vol] 4.1 10*3/uL Low 4.5-11.0 [facility] SEDIMENTATION RATEon 01-18-2 021 SEDIMENTATION RATE 50 MM/HR High 0-12 [facility] Comment on above: Result Comment: [place] [facility] [address] [facility] [address] Automated basophil %on 10-07 Basophils/100 WBC (Bld) 0.2 % [facility] Automated basophil counton 0 2020 Basophils (Bld) [#/Vol] 0.0 10*3/uL 0.0-0.[address] [facility] Automated blood lymphocyte c ount (number/volume)on 2020 Lymphocytes (Bld) [#/Vol] 1.2 10*3/uL 1.00-4.[address] [facility] Automated blood lymphocyte c ount as percentage of total leukocyteson 2020 Lymphocytes/100 WBC (Bld) 25.0 % [facility] Automated blood monocyte cou nton 2020 Monocytes (Bld) [#/Vol] 0.6 10*3/uL 0.0-0.[address] [facility] Automated blood platelet cou nt (count/volume)on 2020 Platelets (Bld) [#/Vol] 177 10*3/uL 150-[address] [facility] Automated blood platelet rishabh n volume measurementon 2020 Platelet mean volume (Bld) [Entitic vol] 6.9 fL 6.6-10.[address] [facility] Automated eosinophil %on Eosinophils/100 WBC (Bld) 3.8 % [facility] Automated eosinophil counton 2020 Eosinophils (Bld) [#/Vol] 0.2 10*3/uL 0.0-0.[address] [facility] Automated erythrocyte distri bution width ratioon 2020 Erythrocyte distribution width (RBC) [Ratio] 12.3 % 12.0-14.[address] [facility] Automated erythrocyte mean c orpuscular hemoglobin (mass per erythrocyte)on 2020 MCH (RBC) [Entitic mass] 35.9 pg 27.5-35.[address] [facility] Automated erythrocyte mean c orpuscular hemoglobin concentration measurement (mass/volon 2020 MCHC (RBC) [Mass/Vol] 34.2 g/dL 32.5-35.6 [facility] Automated erythrocyte mean c orpuscular volumeon 2020 MCV (RBC) [Entitic vol] 105.1 fL 83.5-101 [facility] Automated monocyte %on 10-07 Monocytes/100 WBC (Bld) 12.5 % [facility] Automated neutrophil %on Neutrophils/100 WBC (Bld) 58.5 % [facility] Blood erythrocytes automated count (number/volume)on 2020 RBC (Bld) [#/Vol] 3.74 10*6/uL 3.90-5.60 [facility] Blood hemoglobin measurement (mass/volume)on 2020 Hemoglobin (Bld) [Mass/Vol] 13.4 g/dL 13.0-17.[address] [facility] Blood leukocytes automated c ount (number/volume)on 2020 WBC (Bld) [#/Vol] 4.6 10*3/uL 4.5-11.0 [facility] Blood neutrophil count by au tomated method (number/volume)on 2020 Neutrophils (Bld) [#/Vol] 2.7 10*3/uL 1.8-7.[address] [facility] Body fluid albumin measureme nt (mass/volume)on 2020 Albumin (Body fld) [Mass/Vol] 3.6 g/dL 3.2-5.[address] [facility] Cholesterol [Mass/volume] in Serum or Plasmaon 2020 Cholesterol [Mass/Vol] 93 mg/dL 140-200 [facility] Comment on above: Chol less than 200 m g/dl low riskChol 201-239 mg/dl borderline riskChol 240 mg/dl and greater high risk Cholesterol in LDL [Mass/vol ume] in Serum or Plasma by calculationon 2020 Cholesterol in LDL [Mass/Vol] 42 mg/dL 0-[address] [facility] Comment on above: LDL ATP III CLASSIFI CATIONLDL less than 100 mg/dL OptimalLDL 100-129 mg/dL Near or above optimalLDL 130-159 mg/dL Borderline highLDL 160-189 mg/dL HighLDL greater than 189 mg/dL Very high Cholesterol in VLDL [Mass/vo lume] in Serum or Plasma by calculationon 2020 Cholesterol in VLDL [Mass/Vol] 7 mg/dL [facility] Estimated glomerular filtrat ion rate (GFR) non- Americanon 2020 GFR/1.73 sq M predicted among non-blacks MDRD (S/P/Bld) [Vol rate/Area] 51 mL/min/{1.73_m2} [facility] Hematocrit [Volume Fraction] of Blood by Automated counton 2020 Hematocrit (Bld) [Volume fraction] 39.3 % 38.8-50.[address] [facility] Otheron 2020 GFR/1.73 sq M.predicted MDRD (S/P/Bld) [Vol rate/Area] mL/min/{1.73_m2} [facility] Comment on above: GFR estimated refere nce range: According to KDOQI guidelines, <60 ml/min/1.73m2 is sufficient to diagnose a patient with chronic kidney disease. Nucleated RBC/100 WBC (Bld) [Ratio] 0.0 % 0-0.[address] [facility] Creatinine Clearance (Chem N/A [facility] Protein [Mass/volume] in Ser um or Plasmaon 2020 Protein [Mass/Vol] 7.3 g/dL 6.1-7.9 [facility] Serum globulin measurement b y calculation (mass/volume)on 2020 Globulin (S) [Mass/Vol] 3.7 g/dL [facility] Serum or plasma alanine huntley otransferase measurement without P-5'-P (enzymatic activion 2020 ALT No additional P-5'-P [Catalytic activity/Vol] 23 U/L 10-[address] [facility] Serum or plasma albumin/glob ulin mass ratioon 2020 Albumin/Globulin [Mass ratio] 1.0 {ratio} [facility] Serum or plasma alkaline latoya sphatase measurement (enzymatic activity/volume)on 2020 ALP [Catalytic activity/Vol] 63 U/L 32-[address] [facility] Serum or plasma aspartate am inotransferase measurement (enzymatic activity/volume)on 2020 AST [Catalytic activity/Vol] 18 U/L 10-[address] [facility] Serum or plasma calcium ilana urement (mass/volume)on 2020 Calcium [Mass/Vol] 9.8 mg/dL 8.2-10.2 [facility] Serum or plasma chloride rishabh surement (moles/volume)on 2020 Chloride [Moles/Vol] 104 mmol/L 95-114 [facility] Serum or plasma creatinine m easurement with calculation of estimated glomerular filtron 2020 Creatinine [Mass/Vol] 1.37 mg/dL 0.64-1.27 [facility] Serum or plasma glucose ilana urement (mass/volume)on 2020 Glucose [Mass/Vol] 116 mg/dL 70-100 [facility] Comment on above: ADA recommended refe rence rangeRandom Glucose Reference Range is dependent on time and content of last meal. Glucose of more than 200 mg/dL in a nonstressed, ambulatory subject supports the diagnosis of Diabetes Mellitus. Serum or plasma high density lipoprotein (HDL) cholesterol measurementon 2020 Cholesterol in HDL [Mass/Vol] 43 mg/dL 29-[address] [facility] Comment on above: HDL CHOL ATP-III CLA SSIFICATION Cardiovascular RiskHDL > or equal to 60 mg/dL LOWHDL < 40 mg/dL HIGH Serum or plasma potassium me asurement (moles/volume)on 2020 Potassium [Moles/Vol] 4.1 mmol/L 3.5-5.1 [facility] Serum or plasma sodium measu rement (moles/volume)on 2020 Sodium [Moles/Vol] 140 mmol/L 136-146 [facility] Serum or plasma total biliru bin measurement (mass/volume)on 2020 Bilirubin [Mass/Vol] 0.7 mg/dL 0.3-1.2 [facility] Serum or plasma total carbon dioxide measurement (moles/volume)on 2020 CO2 [Moles/Vol] 24.4 mmol/L 22.0-30.0 [facility] Serum or plasma total choles terol/high density lipoprotein (HDL) cholesterol mass noni 2020 Cholesterol.total/Suzette sterol in HDL [Mass ratio] 2.2 {ratio} [facility] Serum or plasma urea nitroge n measurement (mass/volume)on 2020 Urea nitrogen [Mass/Vol] 24 mg/dL 9-23 [facility] Triglyceride [Mass/volume] i n Serum or Plasmaon 2020 Triglyceride [Mass/Vol] 39 mg/dL 35-149 [facility] Comment on above: TRIG ATP III [...] Jeffery Caceres MD 02/04/20 Final result Normal [facility] 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 [facility] [place] EXAMINATION: CT OF T HE HEAD WITHOUT [...] of the visualized skull or soft tissues. [place], [place] Faust[place], pn Incoming Radiant Results From [employer] - 02/04/2020 4:14 PM EDT EXAMINATION: CT [...] cerebral artery infarct without evidence for hemorrhage. [place], [place] EVENT MONITORon 01-07-[address] [address] EVENT MONITOR PATIENT NAME: NEIL WILCOX : 1945 MED REC NO: [id number] ROOM: 0544 ACCOUNT NO: [id number] ADMIT DATE: 12/21/2019 PROVIDER: Sabine Schrader EVENT MONITOR [id number] ORDERING PROVIDER: Rashard Graham PRIMARY CARE PROVIDER: Paul Cooney INDICATION: Stroke COMMENTS: THIS IS THE FIRST [...] couplets. SABINE SCHRADER /PGAKIMBERLY Doc#: Unknown Normal [facility] CTA HEAD NECK W CONTRASTon 0 12-22-2019 [...] Interpreted by: Wilton Parekh MD Signed by: Witlon Parekh MD 12/22/19 Final result Normal [facility] Comp Metabolic Pr/rfx MGon 0 12-22-2019 AST [Catalytic activity/Vol] 21 U/L Normal <40 [facility] Comment on above: Performed By: #### C MPX, GLYHGB, LIPR, LACTIC, CDP #### [address] [place], [place] [phone] [employer] Operator: Juan F Dominguez MD Drug Scr, Abuse, Uron 2019 Amphetamine(s),Ur Negative Normal NEG [facility] Comment on above: Result Comment: (Positive cutoff 1000 ng/mL) Performed By: #### D AU, UA, UMICAO #### [address] [place], [place] [phone] [employer] Setup Operator: Juan F Dominguez MD Barbiturate(s),Ur Positive Abnormal NEG [facility] Comment on above: Result Comment: (Positive cutoff 200 ng/mL) Performed By: #### Artem SCHULZ UA, UMICAO #### [facility] [address] [place] [address] [employer] Setup Operator: Juan F Dominguez MD Base excess Calc (Bld) [Moles/Vol] Negative Normal NEG [facility] Comment on above: Result Comment: (Positive cutoff 300 ng/mL) Performed By: #### Artem SCHULZ UA, UMICAO #### [facility] [address] [place] [address] [employer] Setup Operator: Juan F Dominguez MD Benzodiazepine(s) Negative Normal NEG [facility] Comment on above: Result Comment: (Positive cutoff 200 ng/mL) Performed By: #### ALEXIS MIRANDA, UMICAO #### [facility] [address] [address] [employer] Setup Operator: Juan F Dominguez MD Cannabinoid(s),Ur Negative Normal NEG [facility] Comment on above: Result Comment: (Positive cutoff 50 ng/mL) Performed By: #### ALEXIS MIRANDA, UMICAO #### [facility] [address] [place] [address] [employer] Setup Operator: Juan F Dominguez MD Interpretive Info Assay provides medic al screening only. The absence of expected drug(s) and/or Normal [facility] Comment on above: Result Comment: meta bolite(s) may indicate diluted or adulterated urine, limitations of testing or timing of collection. Testing for legal purposes should be confirmed by another method. To request confirmation of test result, please call the lab within 7 days of sample submission. Performed By: #### Artem SCHULZ UA, UMICAO #### [facility] [address] [place] [address] [employer] Setup Operator: Juan F Dominguez MD Methadone Ql (U) Negative Normal NEG [facility] Comment on above: Result Comment: (Positive cutoff 300 ng/mL) Performed By: #### Artem SCHULZ UA, UMICAO #### [facility] [address] [place] [address] [employer] Setup Operator: Juan F Dominguez MD Opiate(s), Ur Negative Normal NEG [facility] Comment on above: Result Comment: (Positive cutoff 300 ng/mL) Performed By: #### D ZEUS UA, UMICAO #### [facility] [address] [place] [address] [employer] Setup Operator: Juan F Dominguez MD Oxycodone, Urine Negative Normal NEG [facility] Comment on above: Result Comment: (Positive cutoff 100 ng/mL) Performed By: #### Artem SCHULZ UA, UMICAO #### [facility] [address] [place] [address] [employer] Setup Operator: Juan F Dominguez MD Phencyclidine, Ur Negative Normal NEG [facility] Comment on above: Result Comment: (Positive cutoff 25 ng/mL) Performed By: #### D ZEUS UA, UMICAO #### [facility] [address] [place] [address] [employer] Setup Operator: Juan F Dominguez MD Hemoglobin A1Con 12-22-2019 HbA1c (Bld) [Mass fraction] 120 mg/dL Normal [facility] Comment on above: Result Comment: The ADA and AACC recommend providing the estimated average glucose result to permit better patient understanding of their HBA1c result. Performed By: #### D ZEUS UA, UMICAO #### [facility] [address] [place] [address] [employer] Operator: Juan F Dominguez MD HbA1c (Bld) [Mass fraction] 5.8 % Normal 4.0-6.0 [facility] Comment on above: Performed By: #### D ZEUS UA, UMICAO #### [facility] [address] [place] [address] [employer] Setup Operator: Juan F Dominguez MD Lactic Acidon 12-22-2019 Lactate [Moles/Vol] 1.2 mmol/L Normal 0.7-2.1 [facility] Comment on above: Performed By: #### ALEXIS MIRANDA, UMICAO #### [facility] [address] [place] [address] [employer] Setup Operator: Juan F Dominguez MD Lipid Profileon 12-22-2019 Cholesterol [Mass/Vol] 137 mg/dL Normal <200 [facility] Comment on above: Result Comment: Cholesterol Guidelines: <200 Desirable 200-240 Borderline >240 Undesirable Performed By: #### ALEXIS MIRANDA, UMICAO #### [facility] [address] [place] [phone] [employer] Setup Operator: Juan F Dominguez MD Cholesterol in HDL [Mass/Vol] 53 mg/dL Normal >40 [facility] Comment on above: Result Comment: HDL Guidelines: <40 Undesirable 40-59 Borderline >59 Desirable Performed By: #### ALEXIS MIRANDA, UMICAO #### [facility] [address] [place] [address] [employer] Setup Operator: Juan F Dominguez MD Cholesterol in LDL [Mass/Vol] 73 mg/dL Normal 0-130 [facility] Comment on above: Result Comment: LDL Guidelines: <100 Desirable 100-129 Near to/above Desirable 130-159 Borderline >159 Undesirable Direct (measured) LDL and calculated LDL are not interchangeable tests. Performed By: #### ALEXIS MIRANDA, UMICAO #### [facility] [address] [place] [address] [employer] Setup Operator: Juan F Dominguez MD Cholesterol.total/Suzette sterol in HDL [Mass ratio] 2.6 {ratio} Normal <5 [facility] Comment on above: Performed By: #### ALEXIS MIRANDA, UMICAO #### [facility] [address] [place] [address] [employer] Setup Operator: Juan F Dominguez MD Triglyceride [Mass/Vol] 57 mg/dL Normal <150 M [facility] Comment on above: Result Comment: Triglyceride Guidelines: <150 Desirable 150-199 Borderline 200-499 High >499 Very high Based on AHA Guidelines for fasting triglyceride, June 2012. Performed By: #### Artem SCHULZ UA, UMICAO #### [facility] [address] [place] [address] [employer] Setup Operator: Juan F Dominguez MD Urinalysis, Routineon 2019 Acetoacetic Acid,Ur TRACE Abnormal NEG [facility] Comment on above: Performed By: #### Artem SCHULZ UA, UMICAO #### [facility] [address] [place] [address] [employer] Setup Operator: Juan F Dominguez MD Bilirubin, SemiQt,Ur Negative Normal NEG [facility] Comment on above: Performed By: #### Artem SCHULZ UA, UMICAO #### [facility] [address] [place] [address] [employer] Setup Operator: Juan F Dominguez MD Color (U) YELLOW Normal YEL [facility] Comment on above: Performed By: #### Artem SCHULZ UA, UMICAO #### [facility] [address] [place] [address] [employer] Setup Operator: Juan F Dominguez MD Glucose Ql (U) Negative Normal [facility] Comment on above: Performed By: #### Artem SCHULZ UA, UMICAO #### [facility] [address] [place] [address] [employer] Setup Operator: Juan F Dominguez MD Hemoglobin, Ur Negative Normal NEG [facility] Comment on above: Performed By: #### Artem SCHULZ UA, UMICAO #### [facility] [address] [place] [address] [employer] Setup Operator: Juan F Dominguez MD Leukocyte esterase Test strip Ql (U) Negative Normal NEG [facility] Comment on above: Performed By: #### Artem SCHULZ UA, UMICAO #### [address] [address] [employer] Setup Operator: Juan F Dominguez MD Nitrite,Ur Negative Normal NEG [facility] Comment on above: Performed By: #### Artem SCHULZ UA, UMICAO #### [address] [address] [employer] Setup Operator: Juan F Dominguez MD pH (U) 5.0 [pH] Normal 5.0-8.0 [facility] Comment on above: Performed By: #### Artem SCHULZ UA, UMICAO #### [address] [address] [employer] Setup Operator: Juan F Dominguez MD Protein Ql (U) 1+ Abnormal NEG [facility] Comment on above: Performed By: #### Artem SCHULZ UA, UMICAO #### [address] [address] [employer] Setup Operator: Juan F Dominguez MD Specific gravity (U) [Rel density] 1.025 Normal 1.005-1.030 [facility] Comment on above: Performed By: #### Artem SCHULZ UA, UMICAO #### [address] [address] [employer] Setup Operator: Juan F Dominguez MD Turbidity CLEAR Normal CLEAR [facility] Comment on above: Performed By: #### Artem SCHULZ UA, UMICAO #### [address] [address] [employer] Setup Operator: Juan F Dominguez MD Urobilinogen,Ur Normal Normal NORM [facility] Comment on above: Performed By: #### Artem SCHULZ UA, UMICAO #### [address] [address] [employer] Setup Operator: Juan F Dominguez MD Urinalysis,Microon 0 ----- Normal [facility] Comment on above: Performed By: #### Artem SCHULZ UA, UMICAO #### [facility] [address] [place] [address] [employer] Setup Operator: Juan F Dominguez MD Casts LM.LPF (Urine sed) [#/Area] 2 TO 5 HYALINE Normal 0-8 [facility] Comment on above: Result Comment: Refe rence range defined for non-centrifuged specimen. Performed By: #### Artem SCHULZ UA, UMICAO #### [facility] [address] [place] [address] [employer] Setup Operator: Juan F Dominguez MD Epithelial cells LM.HPF (Urine sed) [#/Area] 0 TO 2 Normal 0-5 [facility] Comment on above: Performed By: #### Artem SCHULZ UA, UMICAO #### [facility] [address] [place] [address] [employer] Setup Operator: Juan F Dominguez MD RBC (U) [#/Vol] 0 TO 2 Normal 0-4 [facility] Comment on above: Result Comment: Refe rence range defined for non-centrifuged specimen. Performed By: #### Artem SCHULZ UA, UMICAO #### [facility] [address] [place] [address] [employer] Setup Operator: Juan F Dominguez MD WBC (U) [#/Vol] 2 TO 5 Normal 0-5 [facility] Comment on above: Performed By: #### Artem SCHULZ UA, UMICAO #### [facility] [address] [place] [address] [employer] Setup Operator: Juan F Dominguez MD CBC with Diffon 12-21-2019 Abs. Basophil <0.03 Normal 0.00-0.20 [facility] Comment on above: Performed By: #### C MPX, GLYHGB, LIPR, LACTIC, CDP #### [facility] [address] [place] [address] [employer] Setup Operator: Juan F Dominguez MD Abs.Imm.Granulocyte <0.03 Normal 0.00-0.30 [facility] Comment on above: Performed By: #### C MPX, GLYHGB, LIPR, LACTIC, CDP #### [place] [address] [employer] Operator: Juan F Dominguez MD Abs.Neutrophil (Seg) 2.41 k/uL Normal 1.50-8.10 [facility] Comment on above: Performed By: #### C MPX, GLYHGB, LIPR, LACTIC, CDP #### [place] [address] [employer] Setup Operator: Juan F Dominguez MD Basophils/100 WBC (Bld) 0 % Normal 0-2 [facility] Comment on above: Performed By: #### C MPX, GLYHGB, LIPR, LACTIC, CDP #### [place] [address] [employer] Setup Operator: Juan F Dominguez MD Eosinophils (Bld) [#/Vol] 0.08 10*3/uL Normal 0.00-0.44 [facility] Comment on above: Performed By: #### C MPX, GLYHGB, LIPR, LACTIC, CDP #### [place] [address] [employer] Operator: Juan F Dominguez MD Eosinophils/100 WBC (Bld) 2 % Normal 1-4 [facility] Comment on above: Performed By: #### C MPX, GLYHGB, LIPR, LACTIC, CDP #### [place] [address] [employer] Setup Operator: Juan F Dominguez MD Erythrocyte distribution width (RBC) [Ratio] 11.9 % Normal 11.8-14.4 [facility] Comment on above: Performed By: #### C MPX, GLYHGB, LIPR, LACTIC, CDP #### [address] [address] [employer] Operator: Juan F Dominguez MD Hematocrit (Bld) [Volume fraction] 38.8 % Low 40.7-50.3 [facility] Comment on above: Performed By: #### C MPX, GLYHGB, LIPR, LACTIC, CDP #### [address] [address] [employer] Setup Operator: Juan F Dominguez MD Hemoglobin (Bld) [Mass/Vol] 13.6 g/dL Normal 13.0-17.0 [facility] Comment on above: Performed By: #### C MPX, GLYHGB, LIPR, LACTIC, CDP #### [address] [address] [employer] Operator: Juan F Dominguez MD Immature granulocytes (Bld) [#/Vol] 0 % Normal 0 [facility] Comment on above: Performed By: #### C MPX, GLYHGB, LIPR, LACTIC, CDP #### [address] [address] [employer] Operator: Juan F Dominguez MD Lymphocytes (Bld) [#/Vol] 1.11 10*3/uL Normal 1.10-3.70 [facility] Comment on above: Performed By: #### C MPX, GLYHGB, LIPR, LACTIC, CDP #### [address] [address] [employer] Operator: Juan F Dominguez MD Lymphocytes/100 WBC (Bld) 28 % Normal 24-43 [facility] Comment on above: Performed By: #### C MPX, GLYHGB, LIPR, LACTIC, CDP #### [address] [address] [employer] Operator: Juan F Dominguez MD MCH (RBC) [Entitic mass] 35.8 pg High 25.2-33.5 [facility] Comment on above: Performed By: #### C MPX, GLYHGB, LIPR, LACTIC, CDP #### [address] [address] [employer] Operator: Juan F Dominguez MD MCHC (RBC) [Mass/Vol] 35.1 g/dL High 28.4-34.8 [facility] Comment on above: Performed By: #### C MPX, GLYHGB, LIPR, LACTIC, CDP #### [address] [address] [employer] Operator: Juan F Dominguez MD MCV (RBC) [Entitic vol] 102.1 fL Normal 82.6-102.9 [facility] Comment on above: Performed By: #### C MPX, GLYHGB, LIPR, LACTIC, CDP #### [address] [address] [employer] Operator: Juan F Dominguez MD Monocytes (Bld) [#/Vol] 0.41 10*3/uL Normal 0.10-1.20 [facility] Comment on above: Performed By: #### C MPX, GLYHGB, LIPR, LACTIC, CDP #### [address] [address] [employer] Operator: Juan F Dominguez MD Monocytes/100 WBC (Bld) 10 % Normal 3-12 [facility] Comment on above: Performed By: #### C MPX, GLYHGB, LIPR, LACTIC, CDP #### [address] [address] [employer] Operator: Juan F Dominguez MD Neutrophil (Seg) 60 % Normal 36-65 [facility] Comment on above: Performed By: #### C MPX, GLYHGB, LIPR, LACTIC, CDP #### [address] [address] [employer] Operator: Juan F Dominguez MD NRBC Automated 0.0 per 100 WBC Normal 0.0 [facility] Comment on above: Performed By: #### C MPX, GLYHGB, LIPR, LACTIC, CDP #### [address] [address] [employer] Operator: Juan F Dominguez MD Platelet mean volume (Bld) [Entitic vol] 8.2 fL Normal 8.1-13.5 [facility] Comment on above: Performed By: #### C MPX, GLYHGB, LIPR, LACTIC, CDP #### [address] [address] [employer] Operator: Juan F Dominguez MD Platelets (Bld) [#/Vol] 200 10*3/uL Normal 138-453 [facility] Comment on above: Performed By: #### C MPX, GLYHGB, LIPR, LACTIC, CDP #### [address] [address] [employer] Operator: Juan F Dominguez MD RBC (Bld) [#/Vol] 3.80 10*6/uL Low 4.21-5.77 [facility] Comment on above: Performed By: #### C MPX, GLYHGB, LIPR, LACTIC, CDP #### [address] [address] [employer] Operator: Juan F Domniguez MD WBC (Bld) [#/Vol] 4.0 10*3/uL Normal 3.5-11.3 [facility] Comment on above: Performed By: #### C MPX, GLYHGB, LIPR, LACTIC, CDP #### [address] [address] [employer] Operator: Juan F Dominguez MD Auto Diff Performed NOT REPORTED Normal [facility] Comment on above: Performed By: #### C MPX, GLYHGB, LIPR, LACTIC, CDP #### [address] [address] [employer] Operator: Juan F Dominguez MD Platelets (Bld) [#/Vol] NOT REPORTED Normal [facility] Comment on above: Performed By: #### C MPX, GLYHGB, LIPR, LACTIC, CDP #### [address] [address] [employer] Operator: Juan F Dominguez MD RBC morphology finding Nom (Bld) NOT REPORTED Normal [facility] Comment on above: Performed By: #### C MPX, GLYHGB, LIPR, LACTIC, CDP #### [facility] [address] [place] [address] [employer] Setup Operator: Juan F Dominguez MD WBC Morphology NOT REPORTED Normal [facility] Comment on above: Performed By: #### C MPX, GLYHGB, LIPR, LACTIC, CDP #### [facility] [address] [place] [address] [employer] Operator: Juan F Dominguez MD Comp Metabolic Pr/rfx MGon 0 12-21-2019 (cont.) Normal [facility] Comment on above: Result Comment: Aver age GFR for 70 or more years old: 75 mL/min/1.73sq m Chronic Kidney Disease: <60 mL/min/1.73sq m Kidney failure: <15 mL/min/1.73sq m eGFR calculated using average adult body mass. Additional eGFR calculator available at: http://www.[employer].com/multiple_crcl_2012.htm Performed By: #### C MPX, GLYHGB, LIPR, LACTIC, CDP #### [facility] [address] [place] [address] [employer] Operator: Juan F Dominguez MD Albumin [Mass/Vol] 3.9 g/dL Normal 3.5-5.2 [facility] Comment on above: Performed By: #### C MPX, GLYHGB, LIPR, LACTIC, CDP #### [address] [address] [employer] Operator: Juan F Dominguez MD Albumin/Globulin [Mass ratio] 1.2 {ratio} Normal 1.0-2.5 [facility] Comment on above: Performed By: #### C MPX, GLYHGB, LIPR, LACTIC, CDP #### [address] [address] [employer] Operator: Juan F Dominguez MD Alkaline Phos 80 U/L Normal 40-129 [facility] Comment on above: Performed By: #### C MPX, GLYHGB, LIPR, LACTIC, CDP #### [address] [address] [employer] Operator: Juan F Dominguez MD ALT [Catalytic activity/Vol] 22 U/L Normal 5-41 [facility] Comment on above: Performed By: #### C MPX, GLYHGB, LIPR, LACTIC, CDP #### [address] [address] [employer] Operator: Juan F Dominguez MD Anion gap [Moles/Vol] 15 mmol/L Normal 9-17 [facility] Comment on above: Performed By: #### C MPX, GLYHGB, LIPR, LACTIC, CDP #### [address] [address] [employer] Operator: Juan F Dominguez MD Bilirubin Ql (U) 0.74 mg/dL Normal 0.3-1.2 [facility] Comment on above: Performed By: #### C MPX, GLYHGB, LIPR, LACTIC, CDP #### [address] [address] [employer] Operator: Juan F Dominguez MD Calcium [Mass/Vol] 9.5 mg/dL Normal 8.6-10.4 [facility] Comment on above: Performed By: #### C MPX, GLYHGB, LIPR, LACTIC, CDP #### [address] [address] [employer] Operator: Juan F Dominguez MD Chloride [Moles/Vol] 99 mmol/L Normal 98-107 [facility] Comment on above: Performed By: #### C MPX, GLYHGB, LIPR, LACTIC, CDP #### [address] [address] [employer] Operator: Juan F Dominguez MD CO2 [Moles/Vol] 20 mmol/L Normal 20-31 [facility] Comment on above: Performed By: #### C MPX, GLYHGB, LIPR, LACTIC, CDP #### [address] [address] [employer] Operator: Juan F Dominguez MD Creatinine [Mass/Vol] 0.77 mg/dL Normal 0.70-1.20 [facility] Comment on above: Performed By: #### C MPX, GLYHGB, LIPR, LACTIC, CDP #### [address] [address] [employer] Operator: Juan F Dominguez MD GFR, Amer >60 Normal >60 [facility] Comment on above: Performed By: #### C MPX, GLYHGB, LIPR, LACTIC, CDP #### [address] [address] [employer] Operator: Juan F Dominguez MD GFR,non Amer >60 Normal >60 [facility] Comment on above: Performed By: #### C MPX, GLYHGB, LIPR, LACTIC, CDP #### [address] [address] [employer] Operator: Juan F Dominguez MD Glucose [Mass/Vol] 86 mg/dL Normal 70-99 [facility] Comment on above: Performed By: #### C MPX, GLYHGB, LIPR, LACTIC, CDP #### [address] [address] [employer] Operator: Juan F Dominguez MD Potassium [Moles/Vol] 4.2 mmol/L Normal 3.7-5.3 [facility] Comment on above: Performed By: #### C MPX, GLYHGB, LIPR, LACTIC, CDP #### [address] [address] [employer] Operator: Juan F Dominguez MD Protein [Mass/Vol] 7.2 g/dL Normal 6.4-8.3 [facility] Comment on above: Performed By: #### C MPX, GLYHGB, LIPR, LACTIC, CDP #### [address] [address] [employer] Operator: Juan F Dominguez MD Sodium [Moles/Vol] 134 mmol/L Low 135-144 [facility] Comment on above: Performed By: #### C MPX, GLYHGB, LIPR, LACTIC, CDP #### [facility] [address] [place] [address] [employer] Operator: Juan F Dominguez MD Urea nitrogen [Mass/Vol] 16 mg/dL Normal 8-23 [facility] Comment on above: Performed By: #### C MPX, GLYHGB, LIPR, LACTIC, CDP #### [facility] [address] [place] [address] [employer] Setup Operator: Juan F Dominguez MD BUN/CRE Ratio NOT REPORTED Normal 9-20 [facility] Comment on above: Performed By: #### C MPX, GLYHGB, LIPR, LACTIC, CDP #### [facility] [address] [place] [address] [employer] Setup Operator: Juan F Dominguez MD Staging: NOT REPORTED Normal [facility] Comment on above: Performed By: #### C MPX, GLYHGB, LIPR, LACTIC, CDP #### [facility] [address] [place] [address] [employer] Operator: Juan F Dominguez MD Drug Scr, Abuse, Uron 2019 Buprenorphrine, Ur NOT REPORTED Normal NEG [facility] Comment on above: Performed By: #### D AU UA, UMICAO #### [facility] [address] [place] [address] [employer] Operator: Juan F Dominguez MD MDMA, Urine NOT REPORTED Normal NEG [facility] Comment on above: Performed By: #### D AU, UA, UMICAO #### [facility] [address] [place] [address] [employer] Setup Operator: Juan F Dominguez MD Methamphetamine, Ur NOT REPORTED Normal NEG [facility] Comment on above: Performed By: #### D AU, UA, UMICAO #### [facility] [address] [place] [address] [employer] Operator: Juan F Dominguez MD Propoxyphene,Urine NOT REPORTED Normal NEG [facility] Comment on above: Performed By: #### D AU, UA, UMICAO #### [facility] [address] [place] [address] [employer] Setup Operator: Juan F Dominguez MD Tricyclic antidepressants Screen Ql (U) NOT REPORTED Normal NEG [facility] Comment on above: Performed By: #### D AU, UA, UMICAO #### [facility] [address] [place] [address] [employer] Operator: Juan F Dominguez MD Lactic Acidon 12-21-2019 Lactate [Moles/Vol] NOT REPORTED Normal [facility] Comment on above: Performed By: #### D AU, UA, UMICAO #### [facility] [address] [place] [address] [employer] Operator: Juan F Dominguez MD Lipid Profileon 12-21-2019 Cholesterol in VLDL [Mass/Vol] NOT REPORTED Normal 10-23 [facility] Comment on above: Performed By: #### D AU UA, UMICAO #### [facility] [address] [place] [address] [employer] Operator: Juan F Dominguez MD Urinalysis, Routineon 2019 Comment NOT REPORTED Normal [facility] Comment on above: Performed By: #### D AU, UA, UMICAO #### [facility] [address] [place] [address] [employer] Operator: Juan F Dominguez MD Urinalysis,Microon 0 Amorphous sediment LM Ql (Urine sed) NOT REPORTED Normal NONE [facility] Comment on above: Performed By: #### Artem SCHULZ UA, UMICAO #### [facility] [place] [address] [employer] Operator: Juan F Dominguez MD Bacteria LM.HPF (Urine sed) [#/Area] NOT REPORTED Normal NONE [facility] Comment on above: Performed By: #### D AU, UA, UMICAO #### [facility] [address] [place] [address] [employer] Operator: Juan F Dominguez MD Crystals LM Nom (Urine sed) NOT REPORTED Normal NONE [facility] Comment on above: Performed By: #### D AU, UA, UMICAO #### [facility] [address] [place] [address] [employer] Operator: Juan F Dominguez MD Epithelial, Renal NOT REPORTED Normal 0 [facility] Comment on above: Performed By: #### D AU, UA, UMICAO #### [facility] [address] [place] [address] [employer] Operator: Juan F Dominguez MD Mucus Strands NOT REPORTED Normal NONE [facility] Comment on above: Performed By: #### D AU, UA, UMICAO #### [facility] [address] [place], [place] [id number] [employer] Setup Operator: Juan F Dominguez MD Other Observations NOT REPORTED Normal NREQ [facility] Comment on above: Performed By: #### D AU, UA, UMICAO #### [facility] [address] [place], [place] [id number] [employer] Operator: Juan F Dominguez MD Trichomonas NOT REPORTED Normal NONE [facility] Comment on above: Performed By: #### D AU, UA, UMICAO #### [facility] [address] [place] [address] [employer] Operator: Juan F Dominguez MD Yeast LM Ql (Urine sed) NOT REPORTED Normal [facility] Comment on above: Performed By: #### D AU, UA, UMICAO #### [facility] [address] [place] [address] [employer] Operator: Juan F Dominguez MD Vital Signs Date Time Vital Sign Value Performing Clinician Facility 12-03-2023 15:25-0400 Blood Pressure Location Trung FERGUSON [facility] 12-03-2023 15:25-0400 Diastolic blood pressure 74 mm[Hg] Trung FERGUSON [facility] 12-03-2023 15:25-0400 Heart rate 76 /min Trung FERGUSON [facility] 12-03-2023 15:25-0400 Respiratory rate 16 /min Trung FERGUSON [facility] 12-03-2023 15:25-0400 Systolic blood pressure 137 mm[Hg] Trung FERGUSON [facility] 10-22-2023 11:54-0500 Body height 175.3 cm Za Hernández MD Work Phone: [facility] 10-22-2023 11:54-0500 Body mass index (BMI) [Ratio] 27.17 kg/m2 Za Hernández MD Work Phone: [facility] 10-22-2023 11:54-0500 Body weight 83.46 kg Za Hernández MD Work Phone: [facility] 10-22-2023 11:54-0500 Diastolic blood pressure 72 mm[Hg] Za Hernández MD Work Phone: [facility] 10-22-2023 11:54-0500 Heart rate 56 /min Za Hernández MD Work Phone: [facility] 10-22-2023 11:54-0500 Systolic blood pressure 124 mm[Hg] Za Hernández MD Work Phone: [facility] 08-28-2023 12:20-0500 Diastolic blood pressure 78 mm[Hg] Ryan Cobb MD Work Phone: [facility] 08-28-2023 12:20-0500 Heart rate 60 /min Ryan Cobb MD Work Phone: [facility] 08-28-2023 12:20-0500 Respiratory rate 14 /min Ryan Cobb MD Work Phone: [facility] 08-28-2023 12:20-0500 SaO2% (BldA) [Mass fraction] 98 % Ryan Cobb MD Work Phone: [facility] 08-28-2023 12:20-0500 Systolic blood pressure 137 mm[Hg] Ryan Cobb MD Work Phone: [facility] 08-22-2023 08:48-0500 Body height 175.3 cm Ryan Cobb MD Work Phone: [facility] 08-22-2023 08:48-0500 Body mass index (BMI) [Ratio] 25.84 kg/m2 Ryan Cobb MD Work Phone: [facility] 08-22-2023 08:48-0500 Body temperature 96.01 [degF] Ryan Cobb MD Work Phone: [facility] 08-22-2023 08:48-0500 Body weight 79.38 kg Ryan Cobb MD Work Phone: [facility] 08-22-2023 08:48-0500 Diastolic blood pressure 79 mm[Hg] Ryan Cobb MD Work Phone: [facility] 08-22-2023 08:48-0500 Heart rate 60 /min Ryan Cobb MD Work Phone: [facility] 08-22-2023 08:48-0500 Respiratory rate 16 /min Ryan Cobb MD Work Phone: [facility] 08-22-2023 08:48-0500 SaO2% (BldA) [Mass fraction] 96 % Rayn Cobb MD Work Phone: [facility] 08-22-2023 08:48-0500 Systolic blood pressure 151 mm[Hg] Ryna Cobb MD Work Phone: [facility] 07-09-2023 11:04-0400 Diastolic blood pressure 78 mm[Hg] Trung FERGUSON [facility] 07-09-2023 11:04-0400 Heart rate 68 /min Trung FERGUSON [facility] 07-09-2023 11:04-0400 Respiratory rate 16 /min Trung FERGUSON [facility] 07-09-2023 11:04-0400 Systolic blood pressure 132 mm[Hg] Trung FERGUSON [facility] 06-11-2023 11:27-0400 Diastolic blood pressure 60 mm[Hg] Sam Cooney Work Phone: [facility] DO Work Phone: 06-11-2023 11:27-0400 Systolic blood pressure 118 mm[Hg] Sam Cooney Work Phone: [facility] DO Work Phone: 06-11-2023 10:51-0400 Body height 175.26 cm Sam Cooney Work Phone: [facility] DO Work Phone: 06-11-2023 10:51-0400 Body mass index (BMI) [Ratio] 26.29 kg/m2 Sam Cooney Work Phone: [facility] DO Work Phone: 06-11-2023 10:51-0400 Body surface area Derived from formula 1.97 m2 Sam Conoey Work Phone: [facility] [facility] DO Work Phone: 06-11-2023 10:51-0400 Body weight 80.74 kg Sam Cooney Work Phone: [facility] DO Work Phone: 06-11-2023 10:51-0400 Diastolic blood pressure 76 mm[Hg] Sam Cooney Work Phone: [facility] DO Work Phone: 06-11-2023 10:51-0400 Heart rate 66 /min Sam Cooney Work Phone: [facility] DO Work Phone: 06-11-2023 10:51-0400 Systolic blood pressure 128 mm[Hg] Sam Meneses [place] Work Phone: [facility] DO Work Phone: 04-03-2023 09:05-0400 Blood Pressure Location CHARLOTTE RITESH [facility] 04-03-2023 09:05-0400 Diastolic blood pressure 56 mm[Hg] CHARLOT[place] RITESH [facility] 04-03-2023 09:05-0400 Heart rate 58 /min [place] RITESH [facility] 04-03-2023 09:05-0400 Respiratory rate 16 /min [place] RITESH [facility] 04-03-2023 09:05-0400 Systolic blood pressure 96 mm[Hg] [place] RITESH [facility] 02-26-2023 12:14-0400 Diastolic blood pressure 40 mm[Hg] Sam Meneses [place] Work Phone: [facility] DO Work Phone: 02-26-2023 12:14-0400 Systolic blood pressure 82 mm[Hg] Sam Meneses [place] Work Phone: [facility] DO Work Phone: 02-26-2023 12:14-0400 50 1 Sam Meneses [place] Work Phone: [facility] DO Work Phone: Comment on above: [facility] 02-26-2023 11:37-0400 Body height 175.26 cm Sam Meneses [place] Work Phone: [facility] DO Work Phone: 02-26-2023 11:37-0400 Body mass index (BMI) [Ratio] 25.93 kg/m2 Sam Meneses [place] Work Phone: [facility] DO Work Phone: 02-26-2023 11:37-0400 Body surface area Derived from formula 1.95 m2 Sam Meneses [place] Work Phone: [facility] DO Work Phone: 02-26-2023 11:37-0400 Body weight 79.65 kg Sam Meneses [place] Work Phone: [facility] DO Work Phone: 02-26-2023 11:37-0400 Diastolic blood pressure 52 mm[Hg] Sam Meneses [place] Work Phone: [facility] DO Work Phone: 02-26-2023 11:37-0400 Heart rate 56 /min Sam Meneses [place] Work Phone: [facility] DO Work Phone: 02-26-2023 11:37-0400 Systolic blood pressure 98 mm[Hg] Sam Meneses [place] Work Phone: [facility] DO Work Phone: 01-23-2023 14:12-0400 Blood Pressure Location CHARLOTTE BAKER [facility] 01-23-2023 14:12-0400 Diastolic blood pressure 76 mm[Hg] [place] RITESH [facility] 01-23-2023 14:12-0400 Heart rate 78 /min [place] RITESH [facility] 01-23-2023 14:12-0400 Respiratory rate 16 /min [facility] BAKER [facility] 01-23-2023 14:12-0400 Systolic blood pressure 130 mm[Hg] [place]LOT[place] BAKER [facility] 01-01-2023 11:45-0400 Blood Pressure Location Trung FERGUSON [facility] 01-01-2023 11:45-0400 Diastolic blood pressure 88 mm[Hg] Trung FERGUSON [facility] 01-01-2023 11:45-0400 Heart rate 67 /min Trung FERGUSON [facility] 01-01-2023 11:45-0400 Respiratory rate 16 /min Trung FERGUSON [facility] 01-01-2023 11:45-0400 Systolic blood pressure 135 mm[Hg] Trung FERGUSON [facility] 11-03-2022 13:02-0500 Blood Pressure Location Trung FERGUSON [facility] 11-03-2022 13:02-0500 Diastolic blood pressure 74 mm[Hg] Trung FERGUSON [facility] 11-03-2022 13:02-0500 Heart rate 68 /min Trung FERGUSON [facility] 11-03-2022 13:02-0500 Respiratory rate 16 /min Trung FERGUSON [facility] 11-03-2022 13:02-0500 Systolic blood pressure 128 mm[Hg] Trung FERGUSON [facility] 10-09-2022 13:22-0500 Diastolic blood pressure 74 mm[Hg] Sam Cooney Work Phone: [facility] [facility] DO Work Phone: 10-09-2022 13:22-0500 Systolic blood pressure 136 mm[Hg] Sam Cooney Work Phone: [facility] [facility] DO Work Phone: 10-09-2022 13:05-0500 Body height 175.26 cm Sam Cooney Work Phone: [facility] [facility] DO Work Phone: 10-09-2022 13:05-0500 Body mass index (BMI) [Ratio] 26.58 kg/m2 Sam Cooney Work Phone: [facility] [facility] DO Work Phone: 10-09-2022 13:05-0500 Body surface area Derived from formula 1.98 m2 Sam Cooney Work Phone: [facility] [facility] DO Work Phone: 10-09-2022 13:05-0500 Body weight 81.65 kg Sam Cooney Work Phone: [facility] [facility] DO Work Phone: 10-09-2022 13:05-0500 Diastolic blood pressure 72 mm[Hg] Sam Cooney Work Phone: [facility] [facility] DO Work Phone: 10-09-2022 13:05-0500 Heart rate 84 /min Sam Cooney Work Phone: [facility] [facility] DO Work Phone: 10-09-2022 13:05-0500 Systolic blood pressure 142 mm[Hg] Sam Meneses [place] Work Phone: [facility] [facility] DO Work Phone: 10-02-2022 15:48-0500 Body height 175.26 cm Sam Cooney Work Phone: [facility] [facility] DO Work Phone: 10-02-2022 15:48-0500 Body mass index (BMI) [Ratio] 26.43 kg/m2 Sam Cooney Work Phone: [facility] [facility] DO Work Phone: 10-02-2022 15:48-0500 Body surface area Derived from formula 1.97 m2 Sam Cooney Work Phone: [facility] [facility] DO Work Phone: 10-02-2022 15:48-0500 Body weight 81.19 kg Sam Cooney Work Phone: [facility] [facility] DO Work Phone: 10-02-2022 15:48-0500 Diastolic blood pressure 82 mm[Hg] Sam Cooney Work Phone: [facility] [facility] DO Work Phone: 10-02-2022 15:48-0500 Heart rate 68 /min Sam Cooney Work Phone: [facility] [facility] DO Work Phone: 10-02-2022 15:48-0500 Systolic blood pressure 134 mm[Hg] Sam Meneses [place] Work Phone: [facility] [facility] DO Work Phone: 10-02-2022 11:32-0500 Blood Pressure Location Trung FERGUSON [facility] 10-02-2022 11:32-0500 Diastolic blood pressure 75 mm[Hg] Trung FERGUSON [facility] 10-02-2022 11:32-0500 Heart rate 70 /min Trung FERGUSON [facility] 10-02-2022 11:32-0500 Respiratory rate 16 /min Trung FERGUSON [facility] 10-02-2022 11:32-0500 Systolic blood pressure 134 mm[Hg] Trung FERGUSON [facility] 09-11-2022 13:07-0500 Diastolic blood pressure 84 mm[Hg] Sam Meneses [place] Work Phone: [facility] [facility] DO Work Phone: 09-11-2022 13:07-0500 Diastolic blood pressure 92 mm[Hg] Sam Meneses [place] Work Phone: [facility] [facility] DO Work Phone: 09-11-2022 13:07-0500 Systolic blood pressure 144 mm[Hg] Ellsworth E Kanab Work Phone: [facility] [facility] DO Work Phone: 09-11-2022 13:07-0500 Systolic blood pressure 148 mm[Hg] Sam E Kanab Work Phone: [facility] [facility] DO Work Phone: 09-11-2022 13:00-0500 Body height 175.26 cm Sam Gideon [place] Work Phone: [facility] [facility] DO Work Phone: 09-11-2022 13:00-0500 Body mass index (BMI) [Ratio] 25.99 kg/m2 Sam Meneses [place] Work Phone: [facility] [facility] DO Work Phone: 09-11-2022 13:00-0500 Body surface area Derived from formula 1.96 m2 Sam Meneses [place] Work Phone: [facility] [facility] DO Work Phone: 09-11-2022 13:00-0500 Body weight 79.83 kg Sam Meneses [place] Work Phone: [facility] [facility] DO Work Phone: 09-11-2022 13:00-0500 Heart rate 62 /min Sam Meneses [place] Work Phone: [facility] [facility] DO Work Phone: 08-28-2022 13:16-0500 Body height 175.26 cm Sam Meneses [place] Work Phone: [facility] [facility] DO Work Phone: 08-28-2022 13:16-0500 Body mass index (BMI) [Ratio] 25.84 kg/m2 Sam Meneses [place] Work Phone: [facility] [facility] DO Work Phone: 08-28-2022 13:16-0500 Body surface area Derived from formula 1.95 m2 Sam Meneses [place] Work Phone: [facility] [facility] DO Work Phone: 08-28-2022 13:16-0500 Body weight 79.38 kg Sam Meneses [place] Work Phone: [facility] [facility] DO Work Phone: 08-28-2022 13:16-0500 Diastolic blood pressure 94 mm[Hg] Sam Meneses [place] Work Phone: [facility] [facility] DO Work Phone: 08-28-2022 13:16-0500 Heart rate 88 /min Sam Meneses [place] Work Phone: [facility] [facility] DO Work Phone: 08-28-2022 13:16-0500 Systolic blood pressure 152 mm[Hg] Sam Meneses [place] Work Phone: [facility] [facility] DO Work Phone: 06-15-2022 10:12-0400 Body height 175.26 cm Sam Meneses Kan[place] Work Phone: [facility] [facility] DO Work Phone: 06-15-2022 10:12-0400 Body mass index (BMI) [Ratio] 24.81 kg/m2 Sam Meneses [place] Work Phone: [facility] [facility] DO Work Phone: 06-15-2022 10:12-0400 Body surface area Derived from formula 1.92 m2 Sam Meneses [place] Work Phone: [facility] [facility] DO Work Phone: 06-15-2022 10:12-0400 Body weight 76.2 kg Sam Meneses [place] Work Phone: [facility] [facility] DO Work Phone: 06-15-2022 10:12-0400 Diastolic blood pressure 82 mm[Hg] Sam Meneses [place] Work Phone: [facility] [facility] DO Work Phone: 06-15-2022 10:12-0400 Heart rate 64 /min Sam Meneses [place] Work Phone: [facility] [facility] DO Work Phone: 06-15-2022 10:12-0400 Systolic blood pressure 160 mm[Hg] Ellsworth E Kanab Work Phone: [facility] [facility] DO Work Phone: 06-15-2022 10:12-0400 4 1 Sam Cooney Work Phone: [facility] [facility] DO Work Phone: Comment on above: PHQ-9 TS 04-24-2022 11:18-0400 Blood Pressure Location Trung FERGUSON [facility] 04-24-2022 11:18-0400 Diastolic blood pressure 86 mm[Hg] Trung FERGUSON [facility] 04-24-2022 11:18-0400 Heart rate 74 /min Trung FERGUSON [facility] 04-24-2022 11:18-0400 Respiratory rate 16 /min Trung FERGUSON [facility] 04-24-2022 11:18-0400 Systolic blood pressure 134 mm[Hg] Trung FERGUSON [facility] 01-23-2022 12:57-0400 Blood Pressure Location Trung FERGUSON [facility] 01-23-2022 12:57-0400 Diastolic blood pressure 87 mm[Hg] Trung FERGUSON [facility] 01-23-2022 12:57-0400 Heart rate 70 /min Trung FERGUSON [facility] 01-23-2022 12:57-0400 Respiratory rate 16 /min Trung FERGUSON [facility] 01-23-2022 12:57-0400 Systolic blood pressure 139 mm[Hg] Trung FERGUSON [facility] 08-31-2021 13:24-0500 Body height 175.26 cm Sam Cooney Work Phone: [facility] [facility] DO Work Phone: 08-31-2021 13:24-0500 Body mass index (BMI) [Ratio] 27.02 kg/m2 Sam Cooney Work Phone: [facility] [facility] DO Work Phone: 08-31-2021 13:24-0500 Body surface area Derived from formula 1.99 m2 Sam Cooney Work Phone: [facility] [facility] DO Work Phone: 08-31-2021 13:24-0500 Body weight 83.01 kg Sam Cooney Work Phone: [facility] [facility] DO Work Phone: 08-31-2021 13:24-0500 Diastolic blood pressure 88 mm[Hg] Sam Cooney Work Phone: [facility] [facility] DO Work Phone: 08-31-2021 13:24-0500 Heart rate 74 /min Sam Cooney Work Phone: [facility] [facility] DO Work Phone: 08-31-2021 13:24-0500 Systolic blood pressure 142 mm[Hg] Sam Cooney Work Phone: [facility] [facility] DO Work Phone: 08-03-2021 09:57-0500 Body height 175.26 cm Sam Cooney Work Phone: [facility] [facility] DO Work Phone: 08-03-2021 09:57-0500 Body mass index (BMI) [Ratio] 26.29 kg/m2 Sam Meneses [place] Work Phone: [facility] [facility] DO Work Phone: 08-03-2021 09:57-0500 Body surface area Derived from formula 1.97 m2 Sam Cooney Work Phone: [facility] [facility] DO Work Phone: 08-03-2021 09:57-0500 Body weight 80.74 kg Sam Cooney Work Phone: [facility] [facility] DO Work Phone: 08-03-2021 09:57-0500 Diastolic blood pressure 90 mm[Hg] Sam Cooney Work Phone: [facility] DO Work Phone: 08-03-2021 09:57-0500 Heart rate 66 /min Sam Cooney Work Phone: [facility] [facility] DO Work Phone: 08-03-2021 09:57-0500 Systolic blood pressure 170 mm[Hg] Sam Meneses [place] Work Phone: [facility] [facility] DO Work Phone: Encounters Encounter Date Encounter Type Care Provider Facility Start: 06-16-2024 ambulatory Trung Santizo ty:[facility] Start: 01-15-2024 End: 01-15-2024 ambulatory ROXANNE GIVENS [facility] Start: 12-28-2023 ambulatory SAM Meneses EROS [facility] Start: 12-28-2023 End: 12-29-2023 ambulatory RYAN Ocampo [facility] Start: 12-28-2023 End: 12-28-2023 Subsequent hospital visit by physician Fatemeh [id number] [facility] Comment on above: Atrial fibrillation, unspecified type (CMS/HCC) Start: 12-03-2023 End: 12-04-2023 ambulatory Trung FERGUSON Facility:[facility] Start: 12-03-2023 End: 12-03-2023 Patient encounter procedure Trung FERGUSON [facility] Start: 11-20-2023 ambulatory GUNNAR Leonard cility:[id number] Start: 11-07-2023 End: 11-07-2023 ambulatory CAMILA ZEPEDA MD Facility:[id number] Start: 11-06-2023 Chart abstracting Kylee Arreguin DPM Work Phone: [facility] Start: 10-22-2023 End: 10-22-2023 ambulatory [facility] Start: 10-22-2023 End: 10-22-2023 Encounter for preprocedural cardiovascular examination [facility] Start: 10-22-2023 End: 10-22-2023 Office outpatient visit 25 minutes Za Hernández MD Work Phone: [facility] Comment on above: Unspecified mood (af fective) disorder (CMS/HCC) (Primary Dx); Paroxysmal atrial fibrillation (CMS/HCC); Former smoker; Encounter for pre-operative cardiovascular clearance; Presence of Watchman left atrial appendage closure device; Paroxysmal atrial fibrillation with RVR (CMS/HCC); Mixed hyperlipidemia; Primary hypertension; Pain in joint of left shoulder Start: 10-22-2023 End: 10-22-2023 Patient encounter status Za Hernández MD Work Phone: [facility] Work Phone: Start: 09-10-2023 End: 09-10-2023 ambulatory Za Edgar Facility:[facility] Start: 09-10-2023 End: 09-10-2023 ambulatory DO Sam Cooney Work Phone: [facility] Work Phone: Start: 09-10-2023 End: 09-10-2023 Patient encounter procedure DO Sam Cooney Work Phone: [facility]Pac[facility] Check Start: 08-28-2023 End: 08-28-2023 Subsequent hospital visit by physician Ryan Cobb MD Work Phone: [facility] Comment on above: Atrial fibrillation (CMS/HCC) (Primary Dx); Chronic atrial fibrillation, unspecified (CMS/HCC); Presence of Watchman left atrial appendage closure device Start: 08-24-2023 Evaluation and manag ement of inpatient [facility] Start: 08-22-2023 End: 08-23-2023 ambulatory SAM HARRINGOTN [facility] Start: 08-22-2023 End: 08-22-2023 ambulatory [facility] Start: 08-22-2023 End: 08-22-2023 Office outpatient new 45 minutes Ryan Cobb MD Work Phone: [facility] Comment on above: Paroxysmal atrial fi brillation (CMS/HCC) (Primary Dx) Start: 08-13-2023 End: 08-13-2023 ambulatory KYLEE ARREGUIN Not Available Start: 08-09-2023 End: 08-09-2023 ambulatory Za Hernández Facility:[facility] Start: 08-09-2023 End: 08-09-2023 ambulatory DO Sam Cooney Work Phone: [facility] Work Phone: Start: 08-09-2023 End: 08-09-2023 Patient encounter procedure DO Sam Cooney Work Phone: [facility] Check Start: 07-31-2023 End: 08-01-2023 ambulatory PURNIMA DAVIDSON JR Facility:[facility] Start: 07-31-2023 Encounter for other preprocedural examination PURNIMA STUART BUSTAMANTE [facility] Start: 07-31-2023 End: 08-01-2023 ambulatory SHERLEY GIFFORDTanner Not Available Start: 07-09-2023 End: 07-10-2023 ambulatory Za Edgar Facility:[facility] Start: 07-09-2023 End: 07-09-2023 Patient encounter procedure Trung FERGUSON [facility] Start: 06-11-2023 Office outpatient vi sit 25 minutes Sam Cooney Work Phone: [facility] [facility] DO Work Phone: Start: 06-11-2023 ambulatory ZA HERNÁNDEZ Facility:[id number] Start: 06-07-2023 End: 06-07-[address] Sam Cooney Facility:[id number] Start: 06-07-2023 End: 06-07-2023 ambulatory DO Sam Cooney Work Phone: [facility] Work Phone: Start: 06-07-2023 End: 06-07-2023 Patient encounter procedure DO Sam Cooney Work Phone: [facility] Start: 05-08-[address] Sam Cooney Facility:[id number] Start: 05-07-2023 End: 05-07-2023 ambulatory Za Hernández Facility:[facility] Start: 05-07-2023 End: 05-07-2023 ambulatory DO Sam Cooney Work Phone: [facility] Work Phone: Start: 05-07-2023 End: 05-07-2023 Patient encounter procedure DO Sam Kanab Work Phone: [facility] Start: 04-03-2023 End: 04-04-2023 ambulatory CHARLOTTE Meneses RITESH Facility:[facility] Start: 04-03-2023 End: 04-03-2023 Patient encounter procedure CHARLOTTE BAKER [facility] Start: 02-26-2023 ambulatory Ms. Loulou Arreguin Facility: Start: 02-26-2023 Office outpatient vi sit 25 minutes Sam Gideon Kan[place] Work Phone: [facility] DO Work Phone: Start: 02-26-2023 Patient encounter procedure Sam Meneses Kanab Work Phone: [facility] [facility] DO Work Phone: Start: 01-23-2023 End: 01-24-2023 ambulatory DO Sam Kanab Work Phone: [facility] Work Phone: Start: 01-23-2023 End: 01-23-2023 Patient encounter procedure [facility] BAKER [facility] Start: 01-22-2023 End: 01-22-2023 Patient encounter procedure DO Sam Kanab Work Phone: [facility] Start: 01-22-2023 End: 01-22-2023 ambulatory DO Sam Kanab Work Phone: [facility] Work Phone: Start: 01-01-2023 End: 01-02-2023 ambulatory Trung FERGUSON Facility:[facility] Start: 01-01-2023 End: 01-01-2023 Patient encounter procedure Trung FERGUSON [facility] Start: 12-08-2022 End: 12-08-[address] Sam Cooney Facility:[id number] Start: 12-08-2022 End: 12-08-2022 ambulatory DO Sam Cooney Work Phone: [facility] Work Phone: Start: 12-08-2022 End: 12-08-2022 Patient encounter procedure DO Sam Eros Work Phone: [facility] Check Start: 11-17-2022 Patient encounter procedure Sam Cooney Work Phone: -[facility] [facility] DO Work Phone: Start: 11-06-2022 End: 11-06-2022 Patient encounter procedure Trung [facility]ERGUSON [facility] Start: 11-03-2022 End: 01-10-[address] SAM COONEY Facility:H1 Start: 11-03-2022 End: 11-03-2022 Patient encounter procedure Trung FERGUSON [facility] Start: 10-17-2022 End: 10-17-2022 Lab Drop off CHARLOTTE BAKER [facility] Start: 10-17-2022 End: 10-17-2022 Patient encounter procedure CHARLOTTE BAKER [facility] Start: 10-09-2022 ambulatory Ms. Jasso Emy Arreguin Facility: Start: 10-09-2022 FUV, Provider: Loulou Myles, Status: Pen, Time: 12:30 PM Ellsworth E Kanab Work Phone: [facility] DO Work Phone: Start: 10-09-2022 Office outpatient vi sit 15 minutes Ellsworth E Kanab Work Phone: [facility] [facility] DO Work Phone: Start: 10-09-2022 Patient encounter procedure Ellsworth E Kanab Work Phone: [facility] [facility] DO Work Phone: Start: 10-02-2022 ambulatory ZA HERNÁNDEZ Facility:[id number] Start: 10-02-2022 Office outpatient vi sit 25 minutes Sam E Kanab Work Phone: [facility] [facility] DO Work Phone: Start: 10-02-2022 End: 10-02-2022 Patient encounter procedure Trung FERGUSON [facility] Start: 09-19-2022 Rx Renewal Sam Meneses Brist ol Work Phone: [facility] [facility] DO Work Phone: Start: 09-11-2022 Office outpatient vi sit 10 minutes Ellsworth E Kanab Work Phone: [facility] 250 DO Work Phone: Start: 09-11-2022 ambulatory ZA HERNÁNDEZ Facility:[id number] Start: 09-04-2022 End: 09-04-2022 Patient encounter procedure Trung FERGUSON [facility] Start: 09-02-2022 Encounter for preprocedural laboratory examination DR TRUNG FERGUSON . [facility] Start: 08-31-2022 End: 09-01-[address] TRUNG FERGUSON . Facility:H1 Start: 08-29-2022 End: 08-30-[address] TRUNG FERGUSON . Facility:H1 Start: 08-29-2022 End: 08-30-2022 Encounter for preprocedural laboratory examination DR TRUNG FERGUSON . Facility:H1 Start: 08-28-2022 Office outpatient vi sit 25 minutes Sam Cooney Work Phone: [facility] [facility] DO Work Phone: Start: 08-25-2022 End: 08-26-[address] SAM COONEY Facility:H1 Start: 08-22-2022 End: 08-23-[address] TRUNG FERGUSON . Facility:H1 Start: 08-14-2022 Telephone encounter Sam cerna Work Phone: [facility] [facility] DO Work Phone: Start: 07-20-[address] TRUNG FERGUSON . Fac ility:H1 Start: 07-14-2022 End: 07-15-[address] TRUNG FERGUSON . Facility:H1 Start: 06-30-2022 Encounter for preprocedural cardiovascular examination DR TRUNG FERGUSON . [facility] Start: 06-30-2022 Encounter for preprocedural laboratory examination DR TRUNG FERGUSON . [facility] Start: 06-30-2022 End: 07-01-[address] TRUNG FERGUSON . Facility:H1 Start: 06-28-2022 End: 06-29-[address] TRUNG FERGUSON . Facility:H1 Start: 06-28-2022 End: 06-29-2022 Encounter for preprocedural cardiovascular examination DR TRUNG FERGUSON . Facility:H1 Start: 06-15-2022 Office outpatient vi sit 15 minutes Sam Cooney Work Phone: [facility] [facility] DO Work Phone: Start: 06-15-2022 Patient encounter procedure Sam Cooney Work Phone: [facility] [facility] DO Work Phone: Start: 04-24-2022 End: 05-10-2022 Pre-admission assessment Trung FERGUSON [facility] Start: 04-24-2022 End: 04-24-2022 Patient encounter procedure Trung R MARTY [facility] Start: 04-12-2022 Telephone encounter Sam cerna Work Phone: [facility] [facility] DO Work Phone: Start: 04-08-2022 End: 04-08-[address] CONCHITA ARREGUIN Facility:H1 Start: 02-17-2022 End: 04-05-[address] SAM COONEY Facility:H1 Start: 01-23-2022 End: 01-23-2022 Patient encounter procedure Trung FERGUSON [facility] Start: 08-31-2021 Office outpatient vi sit 15 minutes Sam Cooney Work Phone: [facility] [facility] DO Work Phone: Start: 02-07-2021 End: 02-07-2021 Patient encounter procedure Sam Cooney Work Phone: [facility] Start: 01-07-2021 End: 01-07-2021 Patient encounter procedure Sam Cooney Work Phone: -Pacemaker Check Start: 10-13-2020 End: 10-14-2020 Patient encounter procedure ISRAR UL SANTOS [facility] Start: 10-13-2020 End: 10-13-2020 Subsequent hospital visit by physician Sam Cooney [facility] Start: 10-08-2020 End: 10-08-2020 Patient encounter procedure Sam Cooney -Pacemaker Check Start: 2020 End: 2020 Patient encounter procedure Sam Cooney -[facility] Start: 09-15-2020 End: 09-15-2020 Patient encounter procedure Sam Cooney -CT [address] Start: 07-07-2020 End: 07-07-2020 Patient encounter procedure Sam Cooney -Pacemaker Check Start: 02-04-2020 End: 02-07-2020 Patient encounter procedure ISRAR UL SANTOS [facility] Start: 02-04-2020 End: 02-06-2020 Subsequent hospital visit by physician Landy Ct Rm 222 [facility] CT Scan Comment on above: 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) Start: 12-21-2019 End: 12-22-2019 Evaluation and management of inpatient LESTER GOA [facility] Procedures Date Procedure Procedure Detail Performing Clinician Start: 12-28-2023 CT WATCHMAN FULL CONTRAST RYAN COBB Start: 12-28-2023 Ct heart contrast ev al cardiac structure&morph Ryan Cobb MD Work Phone: Start: 10-22-2023 Lipid panel ZA VARGAS Start: 10-22-2023 Comprehensive metabo lic 2000 panel - Serum or Plasma ZA HERNÁNDEZ Start: 08-28-2023 Echo transthorc r-t 2d w/wo m-mode rec f-up/lmtd Lucas Pearce [employer] Work Phone: Start: 08-28-2023 Ecg routine ecg w/le ast 12 lds trcg only w/o i&r Lucas Pearce [employer]ERK[employer] Work Phone: Start: 08-22-2023 Creatinine [Mass/vol ume] [...] Trung MARTY Start: 01-24-2022 Cystoscopy Trung SALVATORE MAYSeirna Start: 10-13-2020 Assay of free thyroxine Israr Ul Santos Work Phone: Start: 10-13-2020 Assay of thyroid stimulating hormone tsh Israr Ul Santos Work Phone: Start: 10-13-2020 VITAMIN B12 & FOLATE Is rar Ul Santos Work Phone: Start: 09-15-2020 CT head/brain wo con Re agan Kanab Start: 02-04-2020 Ct head/brain w/o co ntrast [...] EVAL AND TREAT LESTER CHIRRI Start: 12-22-2019 TEMPERER EVAL AND TREAT GRAYSON L CHIRRI Start: [...] DTaP/Tdap/Td Vaccines (2 - Td or Tdap) [facility] Start: 10-13-2024 End: 10-13-2024 Patient encounter procedure 10/13/2024 10:30 AM EST Office Visit [facility] [address] [facility] [address] [place] [address] Za Hernández MD 254 [facility] [address] [place] [address] [facility] Start: 07-31-2024 Thyroid stimulating hormone measurement TSH Level [facility] Start: 04-21-2024 End: 04-21-2024 Patient encounter procedure 04/21/2024 10:30 AM EDT Office Visit [facility] [address] [place] [phone] Loulou Arreguin, FAN MAIL CLERK-COIN BOX COLLECTOR [address], [address] [place] [address] [facility] Start: 11-20-2023 End: 11-20-2023 Patient encounter procedure 11/20/2023 7:00 AM EST Procedure Visit [facility] Gunnar Shaffer, [address] [place] [address] [facility] Start: 11-06-2023 End: 11-06-2023 Patient encounter procedure 11/06/2023 11:30 AM EST Procedure Visit [facility] [address] [place] [phone] Kylee Arreguin DPM [address] [place] [address] [facility] Start: 10-22-2023 End: 10-22-2024 Comprehensive metabolic 2000 panel - Serum or Plasma Comprehensive Metabolic Panel Lab Routine Paroxysmal atrial fibrillation (CMS/HCC) Expected: 10/22/2023 (Approximate), Expires: 10/22/2024 [facility] Service Area Work Phone: Comment on above: Expected: 10/22/2023 (Approximate), Expires: 10/22/2024 Start: 10-22-2023 End: 10-22-2024 Lipid 1996 panel - Serum or Plasma Lipid Panel Lab Routine Paroxysmal atrial fibrillation (CMS/HCC) Unspecified mood (affective) disorder (CMS/HCC) Former smoker Encounter for pre-operative cardiovascular clearance Mixed hyperlipidemia Expected: 10/22/2023 (Approximate), Expires: 10/22/2024 [facility] Work Phone: Comment on above: Expected: 10/22/2023 (Approximate), Expires: 10/22/2024 Start: 09-20-2023 End: 09-20-2023 Patient encounter procedure 09/20/2023 10:30 AM EST Office Visit [address] [place] [phone] Za Hernández MD [address] [place] [address] [address] [place] [address] [facility] Start: 08-28-2023 End: 08-28-2023 Admission to same day surgery center 08/28/2023 11:30 AM EST - 08/28/2023 1:30 PM EST Surgery [facility] [place] [address] [phone] [place] [address] [place] [address] Left Atrial Appendage Closure [08082 (CPT )] [facility] [place] Comment on above: Left Atrial Appendag e Closure [21874 (CPT )] Start: 08-28-2023 Subsequent hospital visit by physician 08/28/2023 11:30 AM EST Hospital Encounter [facility] [place] [address] [phone] [place] [address] [place] [address] Atrial fibrillation (CMS/HCC) [facility] [place] Comment on above: Atrial fibrillation (CMS/HCC) Start: 08-27-2023 End: 08-27-2023 Patient encounter procedure 08/27/2023 9:30 AM EST Office Visit [address] [place] [address] Za Hernández MD 254 [facility] [address] [place], [place] [address] [facility] Start: 06-11-2023 FUV, Provider: Za Hernández, Status: Pen, Time: 10:45 AM FUV, Provider: Za Hernández, Status: Pen, Time: 10:45 AM -[facility] 250 DO Work Phone: Start: 05-25-2023 COVID-19 Vaccine ( season) COVID-19 Vaccine ( season) [facility] Start: 05-25-2023 Influenza vaccination Influenza Vacc ine (#1) [facility] Start: 02-26-2023 FUV, Provider: Za Hernández, Status: Pen, Time: 11:15 AM FUV, Provider: Za Hernández, Status: Pen, Time: 11:15 AM -[facility] 250 DO Work Phone: Start: 10-09-2022 FUV, Provider: Loulou Myles, Status: Pen, Time: 12:30 PM FUV, Provider: Loulou Myles, Status: Pen, Time: 12:30 PM -[facility] 250 DO Work Phone: Start: 10-02-2022 FUV, Provider: Za Hernández, Status: Pen, Time: 3:15 PM FUV, Provider: Za Hernández, Status: Pen, Time: 3:15 PM [facility] 250 DO Work Phone: Start: 09-21-2022 FUV, Provider: Za Hernández, Status: Pen, Time: 9:45 AM FUV, Provider: Za Hernández, Status: Pen, Time: 9:45 AM -[facility] 250 DO Work Phone: Start: 09-11-2022 NURSEVST, Provider: JACQUELINE GONZALEZ LIFE SKILLS SPECIALIST 1,[id number], Status: Pen, Time: 1:00 PM NURSEVST, Provider: JACQUELINE GONZALEZ LIFE SKILLS SPECIALIST 1,[id number], Status: Pen, Time: 1:00 PM [facility] 250 DO Work Phone: Start: 08-28-2022 FUV, Provider: Za Hernnádez, Status: Pen, Time: 12:45 PM FUV, Provider: Za Hernández, Status: Pen, Time: 12:45 PM [facility] 250 DO Work Phone: Start: 08-10-2022 BPCHECK, Provider: Bri GONZALEZ LIFE SKILLS SPECIALIST 1,[id number], Status: Pen, Time: 10:00 AM BPCHECK, Provider: JACQUELINE GONZALEZ LIFE SKILLS SPECIALIST 1,[id number], Status: Pen, Time: 10:00 AM [facility] 250 DO Work Phone: Start: 08-01-2022 FUV, Provider: Erick Wise, Status: Pen, Time: 9:00 AM FUV, Provider: Erick Wise, Status: Pen, Time: 9:00 AM [facility] 250 DO Work Phone: Start: 06-15-2022 FUV, Provider: Za Hernández, Status: Pen, Time: 9:45 AM FUV, Provider: Za Hernández, Status: Pen, Time: 9:45 AM [facility] 250 DO Work Phone: Start: 10-03-2021 FUV, Provider: Loulou Myles, Status: Pen, Time: 10:00 AM FUV, Provider: Loulou Myles, Status: Pen, Time: 10:00 AM [facility] 250 DO Work Phone: Start: 10-03-2021 STRESS NUC, Provider : KAYODE VAZ NUCLEAR 01,[id number], Status: Pen, Time: 8:00 AM STRESS NUC, Provider: KAYODE VAZI NUCLEAR 01,[id number], Status: Pen, Time: 8:00 AM -[facility] 250 DO Work Phone: Start: 04-13-2021 End: 04-13-2021 Virtual Visit 04/13/2021 Virtual Visit Neurology Shalom Shelton MD [address] [phone] [facility] Start: 01-24-2021 COVID-19 Vaccine (2 - Booster for Christina series) COVID-19 Vaccine (2 - Booster for Christina series) [facility] Start: 12-20-2020 Creatinine measurement Creatinine mo nitoring [place], [place] Start: 12-20-2020 HbA1c (Bld) [Mass fraction] A1C test (Diabetic or Prediabetic) [place], [place] Start: 12-20-2020 Lipid panel Lipid screen [place], [place] Start: 12-20-2020 Potassium monitoring Potassium monit oring [place], [place] Start: 08-11-2020 End: 08-11-2020 Office Visit 08/11/2020 Office Visit Neurology Shalom Shelton MD [address] [phone] [facility] Start: 05-25-2020 Influenza vaccination [place], [place] Start: 12-22-2019 Annual Wellness Visi t (AWV) Annual Wellness Visit (AWV) [place], [place] Start: 12-02-2014 Zoster Vaccines (2 o f 3) Zoster Vaccines (2 of 3) [facility] Start: 2012 Abdominal aortic aneurysm screening Abdominal Aortic Aneurysm (AAA) Screening [facility] Start: 2012 Pneumococcal 65+ yea rs Vaccine (1 of 1 - PPSV23) Pneumococcal 65+ years Vaccine (1 of 1 - PPSV23) [place], [place] Start: 1997 Screening for malign ant neoplasm of colon Colon cancer screen colonoscopy [place], [place] Start: 1997 Shingles Vaccine (1 of 2) Shingles Vaccine (1 of 2) [place], [place] Start: 1969 DTaP/Tdap/Td Vaccine s (1 - Tdap) DTaP/Tdap/Td Vaccines (1 - Tdap) [facility] Start: 1966 DTaP/Tdap/Td vaccine (1 - Tdap) DTaP/Tdap/Td vaccine (1 - Tdap) [place], [place] Start: 1965 Diabetes mellitus screening Diabetes Screening [facility] Start: 1965 Hepatitis C screening Hepatitis C [facility] Start: 1947 Abdominal aortic aneurysm screening AAA screen [place], [place] Start: 1947 Hepatitis C screening Hepatitis C [place], [place] Start: 1947 Lipid panel Lipid Panel [facility] Start: 1945 Medicare Annual Wellness Visit Medicare Annual Wellness Visit (AWV) [facility] Start: 1947 Screening for malign ant neoplasm of colon [facility] End: 08-28-2023 Basic metabolic 2000 panel - Serum or Plasma Basic metabolic panel Lab STAT STAT (Lab) for 1 Occurrences starting 08/28/2023 until 08/28/2023 [facility] Service Area Work Phone: Comment on above: STAT (Lab) for 1 Occ urrences starting 08/28/2023 until 08/28/2023 End: 08-31-2023 Basic metabolic 2000 panel - Serum or Plasma Basic Metabolic Panel Lab Routine Morning draw (Lab) for 3 Occurrences starting 08/29/2023 until 08/31/2023 [facility] Work Phone: Comment on above: Morning draw (Lab) f or 3 Occurrences starting 08/29/2023 until 08/31/2023 End: 08-28-2023 CBC W Auto Differential panel - Blood CBC and Auto Differential Lab STAT STAT (Lab) for 1 Occurrences starting 08/28/2023 until 08/28/2023 [facility] Work Phone: Comment on above: STAT (Lab) for 1 Occ urrences starting 08/28/2023 until 08/28/2023 End: 08-31-2023 CBC W Auto Differential panel - Blood CBC and Auto Differential Lab Routine Morning draw (Lab) for 3 Occurrences starting 08/29/2023 until 08/31/2023 [facility] Work Phone: Comment on above: Morning draw (Lab) f or 3 Occurrences starting 08/29/2023 until 08/31/2023 End: 08-28-2023 ECG 12 lead [facility] Work Phone: Comment on above: Once for 1 Occurrenc es starting 08/28/2023 until 08/28/2023 As needed until disc ontinued starting 08/28/2023 End: 08-30-2023 ECG 12 lead daily ECG 12 lead daily ECG Routine Daily for 3 Days starting 08/28/2023 until 08/30/2023, 1 completed [facility] Work Phone: Comment on above: Daily for 3 Days sta rting 08/28/2023 until 08/30/2023, 1 completed End: 08-31-2023 Glucose [Mass/volume] in Serum or Plasma POCT glucose Point of Care Testing - Docked Device Routine 4 times daily before meals and at bedtime for 3 Days starting 08/28/2023 until 08/31/2023 [facility] Work Phone: Comment on above: 4 times daily before meals and at bedtime for 3 Days starting 08/28/2023 until 08/31/2023 End: 08-28-2023 Incentive spirometry Instruct Incentive spirometry Instruct Respiratory Care Routine Once for 1 Occurrences starting 08/28/2023 until 08/28/2023 [facility] Work Phone: Comment on above: Once for 1 Occurrenc es starting 08/28/2023 until 08/28/2023 End: 08-28-2023 Magnesium [Mass/volume] in Serum or Plasma Magnesium Lab STAT STAT (Lab) for 1 Occurrences starting 08/28/2023 until 08/28/2023 [facility] Work Phone: Comment on above: STAT (Lab) for 1 Occ urrences starting 08/28/2023 until 08/28/2023 End: 08-31-2023 Magnesium [Mass/volume] in Serum or Plasma Magnesium Lab Routine Morning draw (Lab) for 3 Occurrences starting 08/29/2023 until 08/31/2023 [facility] Work Phone: Comment on above: Morning draw (Lab) f or 3 Occurrences starting 08/29/2023 until 08/31/2023 End: 08-28-2023 Prothrombin time (PT) Protime-INR Lab STAT STAT (Lab) for 1 Occurrences starting 08/28/2023 until 08/28/2023 [facility] Work Phone: Comment on above: STAT (Lab) for 1 Occ urrences starting 08/28/2023 until 08/28/2023 End: 08-31-2023 Prothrombin time (PT) Protime-INR Lab Routine Morning draw (Lab) for 3 Occurrences starting 08/29/2023 until 08/31/2023 [facility] Work Phone: Comment on above: Morning draw (Lab) f or 3 Occurrences starting 08/29/2023 until 08/31/2023 End: 08-28-2023 Structural heart procedure Structural heart procedure Cardiac Cath Routine Atrial fibrillation (CMS/HCC) Once for 1 Occurrences starting 08/28/2023 until 08/28/2023 [facility] Service Area Work Phone: Comment on above: Once for 1 Occurrenc es starting 08/28/2023 until 08/28/2023 Structural heart procedure Structural heart procedure Cardiac Cath Routine Atrial fibrillation (CMS/HCC) 08/28/2023 12:31 PM [facility] Work Phone: End: 08-28-2023 US Heart Transthoracic [facility] Work Phone: Comment on above: Once for 1 Occurrenc es starting 08/28/2023 until 08/28/2023 Immunizations Immunization Date Immunization Notes Care Provider Fa richmond 10-09-2022 Fluzone High-Dose Quadrivalent 0.7 ML Intramuscular Suspension Prefilled Syringe Sam Cooney Work Phone: [facility] 250 DO Work Phone: 10-09-2022 influenza virus vacc ine, unspecified formulation Trung CommonKey [facility] 10-09-2021 Fluzone High-Dose Quadrivalent 0.7 ML Intramuscular Suspension Prefilled Syringe Ellsworth E Kanab [facility] DO Work Phone: 10-09-2021 influenza virus vacc ine, unspecified formulation Trung [employer] [facility] 11-29-2020 Christina COVID-19 Vac cine 0.5 ML Intramuscular Suspension Sam E Kanab Work Phone: [facility] 09-06-2019 influenza virus vacc ine, unspecified formulation Trung [employer] [facility] 09-06-2019 influenza, high dose seasonal, preservative-free Sam E Kanab Work Phone: [facility] 250 DO Work Phone: 06-24-2019 influenza virus vacc ine, unspecified formulation Trung [employer]Key [facility] 06-24-2019 influenza, high dose seasonal, preservative-free Ellsworth E Kanab Work Phone: [facility] 250 DO Work Phone: 08-04-2018 influenza virus vacc ine, unspecified formulation Trung [employer]Key [facility] 08-04-2018 influenza, high dose seasonal, preservative-free Ellsworth E Kanab [facility] DO Work Phone: 05-25-2018 influenza virus vacc ine, unspecified formulation Trung FERGUSON [facility] 05-25-2018 influenza, seasonal, injectable Ellsworth E Kanab Work Phone: [facility] 250 DO Work Phone: 09-21-2017 influenza virus vacc ine, unspecified formulation Trung FERGUSON [facility] 09-21-2017 Seasonal trivalent influenza vaccine, adjuvanted, preservative free Sam E Kanab Work Phone: [place] [address] DO Work Phone: 09-24-2016 pneumococcal polysaccharide vaccine, 23 valent Sam E Kanab Work Phone: [facility] 10-19-2015 pneumococcal conjuga te vaccine, 13 valent Sam E Kanab Work Phone: [facility] 07-12-2015 pneumococcal polysaccharide vaccine, 23 valent Sam E Kanab Work Phone: [facility] 2014 zoster vaccine, live Ellsworth E Kanab Work Phone: [facility] 08-08-2011 influenza virus vacc ine, unspecified formulation Trung FERGUSON [facility] 08-08-2011 influenza, seasonal, injectable Ellsworth E Kanab Work Phone: [facility] 250 DO Work Phone: 07-14-2009 influenza virus vacc ine, whole virus Ellsworth E Kanab Work Phone: [facility] 250 DO Work Phone: 07-14-2009 influenza, whole Trung LACI ERS [facility] Payers Date Payer Category Payer Medicare [id number] 2022 Self-pay [id number] 2022 Unknown 2019 Medicare MEDICARE RAILROA D MEDICARE xxxxxxxxxxx 2019-Present [phone] [place] [address] xxxxxxxxxxx [id number] 2019 Unknown [employer] [place] MEDIC[employer] SUPP xxxxxx-xx 2019-Present [phone] ATTN INDIVIDUAL CLAIMS [id number] [place] [address] xxxxxx-xx [id number] 2019 Unknown [id number] 2012 Medicare [id number] 1959 Medicare [id number] 1959 Medicare [id number] 1959 Unknown [id number] 1947 Unknown [id number] 2.16.840.1.983506.3.579.2 .175 1947 Unknown [id number] 2.16.840.1.400940.3.579.2 .175 1947 Unknown [id number] 2.16.840.1.576603.3.579.2 .175 1947 Unknown [id number] 2.16.840.1.942025.3.579.2 .593 1947 Unknown [id number] 2.16.840.1.783401.3.579.2 .593 1947 Unknown [id number] 2.16.840.1.441235.3.579.2 .593 1947 Unknown [id number] 2.16.840.1.698682.3.579.2 .593 1947 Unknown [id number] 2.16.840.1.610692.3.579.2 .593 1947 Unknown [id number] 2.16.840.1.192165.3.579.2 .593 1947 Unknown [id number] 2.16.840.1.164884.3.579.2 .593 1947 Unknown [id number] 2.16.840.1.952593.3.579.2 .593 1947 Unknown [id number] 2.16.840.1.178002.3.579.2 .593 1947 Unknown [id number] 2.16.840.1.493371.3.579.2 .593 1947 Unknown [id number] 2.16.840.1.133227.3.579.2 .593 1947 Unknown [id number] 2.16.840.1.562451.3.579.2 .1259 1947 Unknown [id number] 2.16.840.1.288722.3.579.2 .1259 1947 Unknown [id number] 2.16.840.1.929818.3.579.2 .356 1947 Unknown [id number] 2.16.840.1.077354.3.579.2 .356 1947 Unknown [id number] 2.16.840.1.570801.3.579.2 .356 1947 Unknown [id number] 2.16.840.1.559705.3.579.2 .356 1947 Unknown [id number] 2.16.840.1.012693.3.579.2 .356 1947 Unknown [id number] 2.16.840.1.744968.3.579.2 .356 1947 Unknown [id number] 2.16.840.1.724509.3.579.2 .356 1947 Unknown [id number] 2.16.840.1.026259.3.579.2 .356 1947 Unknown [id number] 2.16.840.1.101710.3.579.2 .356 1947 Unknown [id number] 2.16.840.1.939486.3.579.2 .1245 1947 Unknown [id number] 2.16.840.1.137533.3.579.2 .1245 1947 Unknown [id number] 2.16.840.1.306309.3.579.2 .1244 1947 Unknown [id number] 2.16.840.1.285580.3.579.2 .159 1947 Unknown [id number] 2.16.840.1.896291.3.579.2 .159 1947 Unknown [id number] 2.16.840.1.789092.3.579.2 .727 1947 Unknown [id number] 2.16.840.1.631475.3.579.2 .727 1947 Unknown [id number] 2.16.840.1.925714.3.579.2 .727 1947 Unknown [id number] 2.16.840.1.193730.3.579.2 .727 1947 Unknown [id number] 2.16.840.1.659924.3.579.2 .727 1947 Unknown [id number] 2.16.840.1.290190.3.579.2 .727 1947 Unknown [id number] 2.16.840.1.572143.3.579.2 .1246 1947 Unknown [id number] 2.16.840.1.845446.3.579.2 .1246 1947 Unknown [id number] 2.16.840.1.264694.3.579.2 .1286 1947 Unknown [id number] 2.16.840.1.914821.3.579.2 .1286 Private Health Insurance Unknown [id number] 2.16.840.1.645141.3.579.2 .531 Unknown [id number] 2.16.840.1.276239.3.579.2 .531 Unknown [id number] 2.16.840.1.111946.3.579.2 .531 Unknown [id number] 2.16.840.1.991413.3.579.2 .531 Unknown [id number] 2.16.840.1.938912.3.579.2 .531 Unknown [id number] 2.16.840.1.050122.3.579.2 .531 Unknown [id number] 2.16.840.1.508948.3.579.2 .531 Social History Date Type Detail Facility Start: 02-04-2020 End: 10-22-2023 Tobacco smoking status [facility] Former smoker [facility] Start: 1945 Sex Assigned At Not on file [facility] [place] Start: 1945 Sex Assigned At Male [facility] Start: 10-13-2020 End: 10-22-2023 Tobacco use and exposure [facility] Start: 08-12-2023 End: 12-28-2023 Exposure to SARS-CoV-2 (event) Not sure [facility] Start: 06-15-2022 End: 08-22-2023 Occasional caffeine consumption Occasional caffeine consumption [facility] Comment on above: Quit ; Tea; Start: 08-29-2021 End: 12-03-2023 Tobacco smoking status Never smoked tobacco (finding) [facility] Tobacco smoking status Never [facility] Start: 06-15-2022 End: 08-22-2023 Sex Assigned At Male [facility] End: 09-24-1959 History of tobacco use Current smoker [facility] Work Phone: End: 09-24-1959 History of tobacco use Cigarette Smoker [facility] Work Phone: Start: 08-22-2023 Alcohol intake Ex-drinker (finding) [facility] Work Phone: Start: 08-13-2023 End: 10-22-2023 Alcohol intake Lifetime non-drinker (finding) [facility] Work Phone: Medical Equipment Procedure Code Equipment Code Equipment Origin al Text Equipment Identifier Dates [id number] Start: 04-07-2020 System, Access, Fxd Dbl Curve, Watchman - [id number] Start: 08-28-2023 Device, Closure, 27mm Watchman Flx Laac - [id number] Start: 08-28-2023 Goals Date Patient Goal Desired Activity /State Functional Status Date Assessment Result Facility 12-03-2023 Functional Status N/A [facility] 07-09-2023 Functional Status N/A [facility] 04-03-2023 Functional Status N/A [facility] 01-23-2023 Functional Status N/A [facility] 01-01-2023 Functional Status N/A [facility] 11-03-2022 Functional Status N/A [facility] 10-02-2022 Functional Status N/A [facility] 06-15-2022 [id number] In Re mission (0-4) [facility] 250 DO Work Phone: 04-24-2022 Functional Status N/A [facility] Clinical Notes 11-23-2019 to 12-03-2023 Za Hernández MD - 10/22/2023 11:45 AM ESTPatient InstructionsAdam Benedict MD - 08/28/2023 1:11 PM Rudy Felton [facility] - 08/28/2023 12:10 PM ESTDischarge Instructions Note [...] your health care provider. General instructions Take [id number] and prescription medicines only as told by [...] provider. Document Revised: 05/30/2021 Document Reviewed: 05/30/2021 [employer] Patient Education 2022 [employer]. Follow Up Care 07/09/2023 11:46:47 With:MARTY BETANCOURT, Trung Frost, URL Address: [facility] [address], [place] [address] [phone] When: Unknown Comments:6 mos (increase med dosage) [facility] 11-20-2023 Note Procedure Cancelatio n Documentation Entered On: 11/20/2023 10:21 EST Performed On: 11/20/2023 10:17 EST by Sahra Lizarraga RN Procedure Cancelation Documentation Surgery Procedure Cancelation : 11/20/2023 10:17 EST Surgery Procedure Cancel Reason : low hemoglobin/hematocrit. dr shaffer spoke with patient + pt's at length. pt instructed to contact primary care physician Sahra Lizarraga RN - 11/20/2023 10:17 EST [facility] 11-20-[address] Entered On: [...] risk situation (congregated living, hemodialysis, infusion clinic, care home, assisted living, snf, homeless assisted, etc.)? : No Sahra Lizarraga RN - [...] on and Verified : Yes Fall Risk Dishwasher Busser : Yes Blood Band on and Verified : Yes Current H&P in Medical Record : Yes (Comment: 11/15/23 [Mary Ellen Price RN - 11/15/2023 13:49 EST] ) Mary Ellen Price RN - 11/20/2023 9:50 EST Current ECG in Medical Record : Yes (Comment: 10/12/23 [Mary Ellen Price RN - 11/15/2023 13:49 EST] ) Basic [place] : Yes (Comment: 10/12/23 [Mary Ellen Price [...] : Living will, Medical durable power of privacy attorney Advance Directive Location : Family to bring in copy from home Advance Directive Additional Information : No Mary Ellen Price RN - 11/15/2023 14:17 EST Surgical Clipper Prep Surgery Clipper Prep : done in preop Sahra Lizarraga RN - 11/20/2023 9:50 EST [facility] 11-20-2023 Note SOCO Education Entere d On: [...] Education Dialysis Surgery - Hospital form # [id number] : Verbalizes understanding Mary Ellen Price RN [...] Ellen Price RN - 11/15/2023 13:49 EST [facility] 11-15-2023 Note Patient: NEIL WILCOX Age: 78 [...] 500 mg = 1 tabs, PRN, ORAL, [id number] acetaminophen/butalbital/caffeine 325 mg-50 mg-40 mg oral tablet = Fioricet 1 tabs, PRN, ORAL, [id number] Aspirin EC 81 mg oral delayed release [...] 2 mg = 1 caps, PRN, ORAL, [id number] losartan 100 mg oral tablet 100 mg [...] strength, No tenderness, No swelling. Integumentary: Warm, [place]. Neurologic: Alert, Oriented. Cognition and Speech: Oriented, [...] clearance and o (more content not included)... [facility] 10-22-2023 History of Present illness Narrative FU [...] due to atrial fibrillation, on anticoagulation. 10. [id number] at least 5. Has bled score 2 [...] Daily atorvastatin (LIPITOR) 40 mg, oral, Daily hbdbzzzwmz-bsytukd-vbrphsvx (Fiorinal) 50-325-40 mg capsule 1 capsule, oral, [...] discussion and plan. documented in this encounter [facility] Work Phone: 10-22-2023 Instructions Phuong Atkinson [...] of your visit. documented in this encounter [facility] Work Phone: 10-12-2023 Note SOCO Education [...] Education Dialysis Surgery - Hospital form # [id number] : Needs further teaching Yadira Hager RNalin [...] ) Amy Hager RN 10/12/2023 10:10 EST [facility] 08-28-2023 Hospital course Narrative Discharge Diagnosis Atrial fibrillation ([facility]) Hospital Course S/p VINNIE closure Access: Dual [...] 40 mg tablet; Commonly known as: Lipitor fqbbekknoq-bvvseikctflul-zksz 50-325-40 mg tablet cyanocobalamin 1,000 mcg tablet; [...] Center 09/20/2023 10:30 AM Za Hernández MD [id number] [place] Benedict MD documented in this encounter [facility] Work Phone: 08-28-2023 History of Present illness Narrative Pharmacy Medication History Review Neil Wilcox is a 77 y.o. male admitted for Atrial fibrillation ([facility]). Pharmacy reviewed the patient's rfkks-ec-ttuxscrbf medications and allergies for accuracy. The list below reflects the updated SEAL SKINNER list. Comments regarding how patient may be [...] tablet (40 mg) by mouth once daily. tswbqyqxng-tjjnzufzomrmr-aitc 50-325-40 mg tablet Past Week Spouse/Significant Other, [...] Below are additional concerns with the patient's SEAL SKINNER list. [facility] Transitions of Care Clinical Pharmacist Please reach out via [employer] for questions, if no response call [employer] or [email or web address] documented in this encounter [facility] Work Phone: 08-28-2023 Note Formatting of this n ote might be different from the original. Sedation Plan ASA 2 Mallampati class: II. Risks, benefits, and alternatives discussed with patient. [facility] Work Phone: 08-28-2023 Miscellaneous Notes Sedation Plan ASA 2 Mallampati class: II. Risks, benefits, and alternatives discussed with patient. documented in this encounter [facility] Work Phone: 08-27-2023 Hospital Discharge instructions Lucas Pearce APRN-COIN BOX COLLECTOR - 08/27/2023 12:20 PM EST Watchman Discharge [...] have any concerns, you may contact the Strategy Analyst or if any of these symptoms become excessive, contact your lift driver or go to the emergency room. No [...] new concerning symptoms. documented in this encounter [facility] Work Phone: 07-09-2023 Hospital Discharge instructions [...] urethra. Follow these instructions at home: Take lgvv-vea-tkzvnfx and prescription medicines only as told by [...] provider. Document Revised: 03/29/2022 Document Reviewed: 03/29/2022 [employer] Patient Education 2022 [employer]ppifi. Follow Up Care 01/01/2023 13:25:14 With:MARTY BETANCOURT, Trung Frost, URL Address: [facility] [address], [place] [address]- When:Within 4 Month(s) [facility] [place] 04-03-2023 Hospital Discharge instructions Patient Education [...] provider. Document Revised: 01/19/2022 Document Reviewed: 01/19/2022 [employer] Patient Education 2022 [employer]ppifi. Follow Up Care 01/23/2023 14:39:57 With:RITESH ALTAMIRANO, CHARLOTTE Meneses, URL Address: [address] [place] [address] [place] [address] When: Unknown Comments:keep appt w/ [facility] 02-22-2023 History of Present illness Narrative 77-year-old with history of atrial fibrillation, hypercoagulability related to atrial fibrillation, high [id number] score, most recently seen February 2023 and [...] Hypercoagulability due to atrial fibrillation, on anticoagulation.10. [id number] at least 5. Has bled score 2 [...] 50 mg p.o. daily and discontinue amlodipine. -[facility] Carlotta DO Work Phone: 01-23-2023 Hospital Discharge [...] air conditioner or fan, if available. Apply nugl-uec-cngsmfu and prescription medicines only as told by [...] well after activity or exercise. Use a hairspring setter on a cool setting to dry between [...] drying your skin and with medicines. Apply rqbb-pqs-wzjuhzl and prescription medicines only as told by your health care provider. Keep all follow-up visits as told by your health care provider. This is important. This information is not intended to replace advice given to you by your health care provider. Make sure you discuss any questions you have with your health care provider. Document Revised: 06/26/2022 Document Reviewed: 06/26/2022 [employer]in Patient Education 2022 [employer]ppifi. [facility] 01-01-2023 Hospital Discharge instructions Patient Education 01/01/2023 [...] reconstructed. Follow these instructions at home: Take fyoo-lqg-vlmzchu and prescription medicines only as told by [...] 10/06/2016 Document Revised: 04/23/2019 Document Reviewed: 04/23/2019 [employer]in Patient Education 2020 Trippifi. Follow Up Care 10/02/2022 12:40:38 With:MARTY BETANCOURT, Trung Frost, URL Address: [facility] [address] , [place] [address]- When: Unknown [facility] [place] 11-03-2022 Hospital Discharge instructions Patient Education [...] reconstructed. Follow these instructions at home: Take gusz-szq-ofrfaun and prescription medicines only as told by [...] 10/06/2016 Document Revised: 04/23/2019 Document Reviewed: 04/23/2019 ElseFriend.[email or web address] Patient Education 2019 Trippifi. Follow Up Care 11/03/2022 12:06:47 With:MARTY BETANCOURT, Trung Frost, URL Address: [address] [place] [phone]- When: Unknown [facility] [place] 10-02-2022 Hospital Discharge instructions Patient Education 10/02/2022 [...] fried and sweet foods. General instructions Take zvcm-qlr-xusaclw and prescription medicines only as told by [...] 07/07/2010 Document Revised: 01/01/2020 Document Reviewed: 09/26/2018 AccuVein Patient Education 2020 Trippifi. Follow Up Care 07/24/2022 14:33:35 With:MARTY BETANCOURT, Trung Frost, URL Address: [facility] [address], [place] [address]- [phone] When:Within 3 Month(s) [facility] [place] 09-24-2022 History of Present illness Narrative [...] Hypercoagulability due to atrial fibrillation, on anticoagulation.10. [id number] at least 5. Has bled score 2 insurance changed, [facility]Recommendations:1. Decrease metoprolol succinate to 25 mg p.o. [...] 3 months sooner if interval problems arise [facility] Heart-Kayode Laguerre DO Work Phone: 05-25-2022 [...] pressure and orthostatics5. Fall precautions were reiterated. [facility] Jacquelin-Kayode Laguerre DO Work Phone: 04-24-2022 [...] (electrical nerve stimulation). For women, using a medical record librarians teacher to prevent urine leaks. This is a [...] right after experiencing incontinence. General instructions Take kbkl-tsz-ewhggil and prescription medicines only as told by [...] 10/18/2005 Document Revised: 09/20/2018 Document Reviewed: 12/20/2017 AccuVein Patient Education 2020 Trippifi. Follow Up Care 01/24/2022 09:45:35 With:MARTY BETANCOURT, Trung Frost, URL Address: [facility] [address] [place] [phone] When: Unknown Comments:w/ urodynamics [facility] [place] 01-23-2022 Hospital Discharge instructions Patient Education [...] urethra. Follow these instructions at home: Take rxxe-jzd-icmksab and prescription medicines only as told by [...] 09/10/2006 Document Revised: 08/05/2019 Document Reviewed: 10/15/2017 AccuVein Patient Education 2020 Trippifi. Follow Up Care 12/20/2021 10:58:17 With:MARTY BETANCOURT, Trung Frost, URL Address: [facility] [address] , [place] [address]- When: Unknown [facility] 09-24-2021 History of Present illness Narrative Assessment:1. [...] have much in the way of symptoms. -[facility] 250 DO Work Phone: 11-23-2019 History of Present illness Narrative Mr. Wilcox is a 75-year-old male seen back today for follow-up on his implanted loop recorder. He was seen initially as a consult requested by neurology. He was admitted to [facility] in [place] in November 2019 with an acute stroke. [...] to be stable from cardiac perspective. [facility] 250 DO Work Phone: 11-23-2019 History of Present illness Narrative Patient is new to this provider. Per Dr. Reyes's prior notes:Mr. Wilcox is a 75-year-old male seen back today for follow-up on his implanted loop recorder. He was seen initially as a consult requested by neurology. He was admitted to [facility] in [place] in November 2019 with an acute stroke. [...] for him in view of his BPH. [facility] [employer] DO Work Phone: Chief complaint Narrative - Reported NEIL WILCOX is being seen for Discuss progress. [facility] [employer] DO Work Phone: Evaluation + Plan note Future Appointments Appointment Date:01/24/2022 09:30:00 AM Scheduled Provider: Location:[facility] Appointment Type:Urology FT Appointment Date:09/04/2022 08:45:00 AM Scheduled Provider:Trung FERGUSON MD Location:[facility] Appointment Type:URO Office Visit [facility] Evaluation + Plan note Future Appointments Appointment Date:04/25/2022 12:15:00 PM Scheduled Provider: Location:[facility] Appointment Type:Urology CALL PAT FT Appointment Date:05/09/2022 11:00:00 AM Scheduled Provider: Location:[facility] Appointment Type:Urology FT Appointment Date:09/04/2022 08:45:00 AM Scheduled Provider:Trung FERGUSON MD Location:[facility] Appointment Type:URO Office Visit [facility] Evaluation + Plan note Future Appointments Appointment Date:09/04/2022 08:45:00 AM Scheduled Provider:Trung FERGUSON MD [facility] Type:URO Office Visit [facility] Evaluation + Plan note Future Appointments Appointment Date:09/29/2022 08:45:00 AM Scheduled Provider:Trung FERGUSON MD Location:[facility] Appointment Type:URO Office Visit [facility] Evaluation + Plan note Future Appointments Appointment Date:01/01/2023 11:30:00 AM Scheduled Provider:Tr[facility]ER[facility]USON [facility] Office Visit [facility] Evaluation + Plan note Future Appointments Appointment Date:01/01/2023 11:30:00 AM Scheduled Provider:Trung FERGUSON MD Location:[facility] Appointment Type:URO Office Visit Diagnostic Tests PendingUrine Culture 10/17/22 [facility] Evaluation + Plan note Future Appointments Appointment Date:11/06/2022 09:00:00 AM Scheduled Provider: Location:[facility] Appointment Type:URO Nurse Visit Appointment Date:01/01/2023 11:30:00 AM Scheduled Provider:Trung FERGUSON MD [facility] Type:[facility]O Office Visit [facility] Evaluation + Plan note Future Appointments Appointment Date:07/09/2023 10:30:00 AM Scheduled Provider:Trung FERGUSON MD [facility] Type:URO Office Visit [facility] Evaluation + Plan note Future Appointments Appointment Date:04/03/2023 09:00:00 AM Scheduled Provider:CHARLOTTE BAKER PA-C Location:[facility] Appointment Type:URO Office Visit Appointment Date:07/09/2023 10:30:00 AM Scheduled Provider:Trung FERGUSON MD Location:[facility] Appointment Type:URO Office Visit [facility] Evaluation + Plan note Future Appointments Appointment Date:11/12/2023 11:15:00 AM Scheduled Provider:Trung FERGUSON MD [facility] Type:URO Office Visit [facility] Evaluation + Plan note Future Appointments Appointment Date:06/16/2024 01:15:00 PM Scheduled Provider:Trung FERGUSON MD Location:[facility] Appointment Type:URO Office Visit [facility] Evaluation note No Assessments Infor mation Available [facility] Evaluation note No assessment inform ation available [facility] Evaluation note Diagnosis Paroxysmal atrial fibrillation (CMS/HCC)- Primary Atrial fibrillation Atrial fibrillation (CMS/HCC)- Primary Atrial fibrillation Atrial fibrillation (CMS/HCC) Atrial fibrillation documented in this encounter [facility] Work Phone: Evaluation note* Diagnosis Atrial fibrillation (CMS/HCC)- Primary Atrial fibrillation Atrial fibrillation (CMS/HCC) Atrial fibrillation Chronic atrial fibrillation, unspecified (CMS/HCC) 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 Comorbid Illnesses: hypertension. * Symptoms: denies chest pain at rest, denies exertional chest pain, denies dyspnea, worsened fatigue, worsened exercise intolerance, denies palpitations, denies edema, denies orthopnea, denies dizziness and denies orthostatic dizziness. * Disease Monitoring: -[facility] Heart-Kayode Laguerre DO Work Phone: History of [...] the near future to establish anticoagulation practice. [facility] Work Phone: History [...] the near future to establish anticoagulation practice. [facility] [employer] DO Work Phone: History of Present illness [...] medication regimen. He denies medication side effects. [facility] [employer] DO Work Phone: History of Present illness [...] medication regimen. He denies medication side effects. [facility] [employer] DO Work Phone: Hospital course Narrative No data available for this section [facility] Discharge instructions No data available for this section [facility] No data available for this section [facility] reason for referral (narrative)* Consultation (Routine) - Authorized Specialty Diagnoses / Procedures Referred By Contac t Referred To Contact Cardiology Diagnoses Paroxysmal atrial fibrillation (CMS/HCC) Procedures Follow Up In Cardiology Za Hernández MD [address] [facility] [address] [place] [address] Za Hernández MD [address] [facility] [address] [place] [address] Referral ID Status Reason Start Date Expiration Date V isits Requested Visits Authorized [id number] Authorized 10/22/2023 10/21/2024 1 1 * Consultation (Routine) - Authorized Specialty Diagnoses / Procedures Referred By Contac t Referred To Contact Cardiology Diagnoses Paroxysmal atrial fibrillation (CMS/HCC) Procedures Follow Up In Cardiology Za Hernández MD [address] [facility] [address] [place] [address] Loulou Arreguin, FAN MAIL CLERK-COIN BOX COLLECTOR [address] [facility] 2, [address] [address] Referral ID Status Reason Start Date Expiration Date V isits Requested Visits Authorized [id number] Authorized 10/22/2023 10/21/2024 1 1 [facility] Work Phone: Reason for Referral Status Reason Specialty Diagnoses / Procedures Referred By Contact Referred To Contact Not Required - Recondo Radiology Diagnoses 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) Procedures CT HEAD WO CONTRAST Ul Shalom Graham MD [address] [facility] [address] [place] [address] Specialty Diagnoses / Procedures Referred By Contac t Referred To Contact Radiology Diagnoses Atrial fibrillation, unspecified type (CMS/HCC) Procedures CT watchman full [place] [address] [address] [place] [id number] Referral ID Status Reason Start Date Expiration Date Visits Requested Visits Authorized [id number] Authorized Perform Procedure 11/01/2023 10/31/2024 1 1 Assessments Diagnosis 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) Advance Directives No Advanced Directives Records FoundDocuments on File Type Date Recorded Patient Wing Scorer Expl anation Advance Directives and Living Will Power of Medical Officer Psychiatry Latest Code Status on File Code Status Date Activated Date Inactivated Comments Full Code 12/21/2019 9:20 PM 12/22/2019 7:58 PM Advance Directive Response Recorded Date/ Time Advance Directives No October 30, 2018 10:33am Documents on File Type Date Recorded Patient Wing Scorer Expl anation ACP-Advance Directive ACP-Power of Medical Officer Psychiatry Latest Code Status on File Code Status [...] WO CONTRAST Ul Shalom Graham MD [address] [address] Reason Comments laao Specialty Diagnoses / Procedures Referred By Contac t Referred To Contact Diagnoses Atrial fibrillation (CMS/HCC) Atrial fibrillation (CMS/HCC) [I48.91] Procedures [place] PERQ CLSR TCAT L ATR APNDGE W/ENDOCARDIAL IMPLNT [place] PERQ CLSR TCAT L ATR APNDGE W/ENDOCARDIAL IMPLNT LAAO (Left Atrial Appendage Occlusion) [place] [address] [place] [address] [place] [address] [address] [place] [address] [place] [address] Referral ID Status Reason Start Date Expiration Date Visits Re quested Visits Authorized [id number] 1 1 Reason Comments Follow-up Watchman follow up Specialty Diagnoses / Procedures Referred By Romelia louis Referred To Contact Radiology Diagnoses Atrial fibrillation, unspecified type (CMS/HCC) Procedures [place] [address] [place] [address] Referral ID Status Reason Start Date Expiration Date Visits Requested Visits Authorized [id number] Authorized Perform Procedure 11/01/2023 10/31/2024 1 1 [...] section and content) DATE CREATED AUTHOR 10/14/2020 [facility] DATE CREATED AUTHOR AUTHOR'S ORGANIZ ATION 04/23/2021 [facility] DATE CREATED AUTHOR AUTHOR'S ORGANIZ ATION 10/04/2021 [facility] DATE CREATED AUTHOR AUTHOR'S ORGANIZ ATION 01/24/2023 [facility] [place] [facility] DATE CREATED AUTHOR AUTHOR'S ORGANIZ ATION 06/15/2023 [facility] DATE CREATED AUTHOR AUTHOR'S ORGANIZ ATION 08/05/2023 [facility] DATE CREATED AUTHOR AUTHOR'S ORGANIZ ATION 08/14/2023 [facility] DATE CREATED AUTHOR AUTHOR'S ORGANIZ ATION 09/02/2023 [facility] DATE CREATED AUTHOR AUTHOR'S ORGANIZ ATION 09/09/2023 [facility] DATE CREATED AUTHOR AUTHOR'S ORGANIZ ATION 09/10/[address] [facility] DATE CREATED AUTHOR AUTHOR'S ORGANIZ ATION 10/24/2023 [facility] DATE CREATED AUTHOR AUTHOR'S ORGANIZ ATION 11/21/2023 [facility] DATE CREATED AUTHOR AUTHOR'S ORGANIZ ATION 12/04/2023 [facility] DATE CREATED AUTHOR AUTHOR'S ORGANIZ ATION 01/03/2024 [facility] DATE CREATED AUTHOR AUTHOR'S ORGANIZ [...] Active Za Hernández MD Attending Provider Active Song Writer Relationship Specialty Start Date End Date Sam CooneyDO [address] [place] [address] PCP - General 09/24/19 Song Writer Relationship Specialty Start Date End Date Sam Cooney DO [address] [place] [address] PCP - General 09/24/19 Song Writer Relationship Specialty Start Date End Date Sam Cooney DO [address] [place] [address] PCP - General 09/24/19 Song Writer Relationship Specialty Start Date End Date Sam Cooney MD [address] [place] [address] PCP - General Family Medicine 08/13/23 Song Writer Relationship Specialty Start Date End Date Sam Cooney [place] [address] [place] [address] PCP - General 09/24/19 Scheduled Active and Recently Administ ered Medications (unrecognized section and content) Medication Order 08/26/2023 08/27/2023 08/28/2023 aspirin chewable tablet 324 mg (COMPLETED) 324 mg, oral, Once, On Sun08/28/23 at 1030, For 1 dose, Preprocedure 1048 (Given - Provid er: mEerson Mcpherson RN) aspirin EC tablet 81 mg [...] Intraprocedure 1120 (New Bag - Prov ider: Gordon Zambrano RN) clopidogrel (Plavix) tablet (CANCELED) As [...] on Sun08/28/23 at 1217, Intraprocedure 1217 ([facility] ider: Kala Canseco RN) traMADol (Ultram) tablet [...] BE BASED ON THE PRIMARY CLINICAL RECORDS. [facility] [employer] [facility]. provides no warranty or guarantee of the accuracy or completeness of information in this document.
[2024-01-27] VITALS (12 sets, daily range): BP systolic 95–167; BP diastolic 58–74; PULSE 64–94; TEMP 36.3–36.7; O2SAT 90–96; BMI 26.1
[2024-01-27 00:12] LABS: Lactate/Lactic Acid 1.2 mmol/L (0.4-2.0)
[2024-01-27 04:54] LABS: Mean Corpuscular HGB Conc 33.5 g/dL (29.9-35.2); Mean Corpuscular Hemoglobin 37.4 pg (25.9-34.0); Mean Corpuscular Volume 111.8 fL (80.0-94.0); Mean Platelet Volume 9.2 fL (9.5-13.5); Platelet Count 57 10^3/uL (150-450); Red Blood Count 1.87 10^6/uL (4.70-6.10); Red Cell Distribution Width 13.6 % (11.0-15.0); White Blood Count 2.1 10^3/uL (4.0-11.0)
[2024-01-27 05:08] LABS: Anion Gap 15.9; BUN Creatinine Ratio 12.6; Calcium 10.2 mg/dL (8.5-10.1); Carbon Dioxide 22.9 mmol/L (21.0-32.0); Chloride 98 mmol/L (98-107); Estimated GFR (African America 55 (>=60); Estimated GFR (Non-African Ame 45 (>=60); Glucose 104 mg/dL (74-106); Potassium 3.8 mmol/L (3.5-5.1); Sodium 133 mmol/L (136-145)
[2024-01-27 05:34] LABS: Hematocrit 20.9 % (42.0-54.0)
[2024-01-27] MEDS: 0.9 % SODIUM CHLORIDE 1,000 ML 100 ML IV (06:01)
[2024-01-27] MEDS: METOPROLOL SUCCINATE 25 MG TAB.ER.24H PO (10:13)
[2024-01-27] MEDS: LACTATED RINGER'S SOLUTION 1,000 ML 125 ML IV ×2 (10:13→21:03)
[2024-01-27] MEDS: DOXAZOSIN MESYLATE 2 MG TABLET 4 MG PO (10:14)
[2024-01-27] MEDS: FOLIC ACID 1 MG TABLET PO (10:14)
[2024-01-27] MEDS: SOLIFENACIN SUCCINATE 5 MG TABLET PO (10:14)
[2024-01-27] MEDS: MEMANTINE HCL 28 MG CAP XR PO (10:27)
[2024-01-27] MEDS: ASPIRIN 81 MG TABLET.DR PO (10:27)
[2024-01-27] MEDS: FLUOXETINE HCL 20 MG CAPSULE 40 MG PO (10:27)
[2024-01-27] MEDS: CLOPIDOGREL BISULFATE 75 MG TABLET PO (10:27)
[2024-01-27] MEDS: FINASTERIDE 5 MG TABLET PO (10:27)
--- NOTE | 2024-01-27 13:00 | PM.HP ---
HPI H&P: HPI History of Present Illness Chief complaint: LOWER BACK PAIN D/T FALLS WEAKNESS LUMBAR FRACTURE Narrative: 78-year-old male with history of dementia, confusion and was brought over by his for worsening ambulatory dysfunction And frequent falls. Patient has been progressively worsening after his most recent fall, he was unable to get up and ambulate because of pain so by brought patient over to Emergency Room for further evaluation. In the Emergency Room, patient was awake and pleasantly confused with no significant changes from his baseline noted to have increased weakness, unstable gait. Patient's workup revealed compression fracture of L4 vertebra and due to his recent decline in functional status, frequent falls and poorly controlled pain from compression fracture, was admitted to the hospital. He was also noted to have mild acute kidney injury for which he was started on IV fluids. Moreover, patient has pancytopenia of unclear etiology. I called his to get more information on it bit it seems like this has not been worked up. Opioid HPI Opioid Management Most Recent Opioid Data: Last Pain Scale 2 01/27/24 10:00 Last Pain Assessment 01/27/24 12:00 Last ORT Total Score 4 01/27/24 00:24 Last ORT Risk Category Moderate Risk 01/27/24 00:24 PFSH PFSH Medical History (Updated 01/27/24 @ 13:15 by Shaikh Zhane MD) Fracture of shoulder ?S42.90XA - Fracture of unspecified shoulder girdle, part unspecified, initial encounter for closed fracture (ICD-10) Cytopenia ?D75.9 - Disease of blood and blood-forming organs, unspecified (ICD-10) Closed lumbar fracture with cord injury ?S34.109A - Unspecified injury to unspecified level of lumbar spinal cord, initial encounter (ICD-10) ?S32.008A - Other fracture of unspecified lumbar vertebra, initial encounter for closed fracture (ICD-10) Dementia ?F03.90 - Unspecified dementia, unspecified severity, without behavioral disturbance, psychotic disturbance, mood disturbance, and anxiety (ICD-10) Afib ?I48.91 - Unspecified atrial fibrillation (ICD-10) Recurrent cerebrovascular accidents (CVAs) ?I63.9 - Cerebral infarction, unspecified (ICD-10) NPH (normal pressure hydrocephalus) ?G91.2 - (Idiopathic) normal pressure hydrocephalus (ICD-10) Multiple falls ?R29.6 - Repeated falls (ICD-10) Head injury ?S09.90XA - Unspecified injury of head, initial encounter (ICD-10) Obstructive sleep apnea ?G47.33 - Obstructive sleep apnea (adult) (pediatric) (ICD-10) BPH (benign prostatic hyperplasia) ?N40.0 - Benign prostatic hyperplasia without lower urinary tract symptoms (ICD-10) Alzheimer disease ?G30.9 - Alzheimer's disease, unspecified (ICD-10) ?F02.80 - Dementia in other diseases classified elsewhere, unspecified severity, without behavioral disturbance, psychotic disturbance, mood disturbance, and anxiety (ICD-10) Vertigo ?R42 - Dizziness and giddiness (ICD-10) Hypertension ?I10 - Essential (primary) hypertension (ICD-10) Social History Smoking status: Never smoker Highest level of school completed/degree received: high school graduate Do you think of yourself as: straight/heterosexual Gender Identity: male Meds Home Medications and Allergies Home Medications ?Medication ?Instructions ?Recorded ?Confirmed ?Type cyanocobalamin (vitamin B-12) 1,000 mcg PO DAILY 05/20/23 01/26/24 History 1,000 mcg tablet doxazosin 4 mg tablet 4 mg PO DAILY 05/20/23 01/26/24 History finasteride 5 mg tablet 5 mg PO DAILY 05/20/23 01/26/24 History folic acid 1 mg tablet 1 mg PO DAILY 05/20/23 01/26/24 History metoprolol succinate 25 mg 25 mg PO DAILY 05/20/23 01/26/24 History tablet,extended release 24 hr spironolactone 25 mg tablet 25 mg PO DAILY 05/20/23 01/26/24 History loperamide 2 mg capsule 2 mg PO Q6H PRN loose stool 07/13/23 01/26/24 History tolterodine 2 mg capsule,extended 2 mg PO Q24H 07/13/23 01/26/24 History release 24 hr clopidogrel 75 mg tablet 75 mg PO DAILY 01/26/24 01/26/24 History fluoxetine 40 mg capsule 40 mg PO DAILY 01/26/24 01/26/24 History memantine 10 mg tablet 10 mg PO BID 01/26/24 01/26/24 History aspirin 81 mg tablet,delayed 81 mg PO DAILY 01/27/24 01/27/24 History release losartan 100 mg tablet 100 mg PO DAILY 01/27/24 01/27/24 History Allergies Allergy/AdvReac Type Severity Reaction Status Date / Time No Known Drug Allergies Allergy Verified 01/26/24 20:17 Exam Constitutional Vital Signs, click to edit/add: Last Vital Signs Temp 97.7 F 01/27/24 12:43 Pulse 76 01/27/24 12:43 Resp 18 01/27/24 12:43 BP 99/61 01/27/24 12:43 Pulse Ox 92 L 01/27/24 12:43 O2 Del Method Room Air 01/27/24 12:43 Documenting provider has reviewed patient's vital signs: yes Common normals: no apparent distress General appearance: cooperative and comfortable Nutritional appearance: obese HENMT Common normals: normocephalic and head/scalp atraumatic Respiratory Common normals: normal respiratory effort, no use of accessory muscles and clear to auscultation bilaterally Effort & inspection: able to speak in complete sentences Cardio Common normals: no JVD, regular rate, regular rhythm, S1 normal heart sound and S2 normal heart sound GI Common normals: Normal to inspection, nondistended, normoactive bowel sounds present, soft to palpation, non-tender and no hepatosplenomegaly Extremity Common normals: normal to inspection and full ROM Neuro Common normals: oriented x3, moves all extremities, no focal motor deficits and no sensory deficits noted Psych Common normals: mental status grossly normal, cooperative, denies homicidal ideation and denies suicidal ideation Results Labs Labs: Short CBC 01/26/24 01/27/24 Range/Units 20:54 04:29 WBC 2.2 L 2.1 L (4.0-11.0) 10^3/uL Hgb 7.5 L 7.0 L (14.0-18.0) g/dL Hct 22.0 L* 20.9 L* (42.0-54.0) % Plt Count 62 L 57 L (150-450) 10^3/uL BMP 01/26/24 01/27/24 20:54 04:29 Sodium 134 L 133 L Potassium 4.0 3.8 Chloride 96 L 98 Carbon Dioxide 22.5 22.9 BUN 20.0 H 19.0 H Creatinine 1.73 H 1.51 H Glucose 126 H 104 Calcium 10.6 H 10.2 H Liver Function 01/26/24 Range/Units 20:54 Total Bilirubin 0.9 (0.2-1.0) mg/dL AST 20 (15-37) U/L ALT 11 L (16-63) U/L Alkaline Phosphatase 71 (46-116) U/L Albumin 2.7 L (3.4-5.0) g/dL Assessment and Plan Assessment and Plan (1) ELSA (acute kidney injury): Assessment and Plan: Mild ELSA. Normal serum cr at baseline. On IVF. Monitor Serum creatinine (2) Pancytopenia: Assessment and Plan: Pancytopenia - all cell lines are low, worsened from baseline. Ordered one unit PRBC. Closely monitor H&H. Hold ASA and plavix as platelets are only 50K No prior outpatient work up for it. Will defer to outpatient. (3) Multiple falls: Assessment and Plan: Frequent falls. PT/OT eval. (4) Compression fracture of lumbar vertebra: Assessment and Plan: From recent fall. Pain is controlled. PT/OT eval. No neurological symptoms Qualifiers: Lumbar vertebra fracture level: L4 Fracture healing: with routine healing Encounter type: subsequent encounter Qualified Code(s): S32.040D - Wedge compression fracture of fourth lumbar vertebra, subsequent encounter for fracture with routine healing (5) Dementia: Assessment and Plan: Severe dementia. C/w home meds. Patient follows neurology as outpatient. Qualifiers: Dementia type: Alzheimer's Alzheimer's disease onset: early onset Dementia severity: severe Dementia behavioral or psychological symptom: with mood disturbance Qualified Code(s): G30.0 - Alzheimer's disease with early onset; F02.C3 - Dementia in other diseases classified elsewhere, severe, with mood disturbance (6) Afib: Assessment and Plan: s/p watchman. In NSR. Hold ASA, PLAVIX. Qualifiers: Atrial fibrillation type: paroxysmal Qualified Code(s): I48.0 - Paroxysmal atrial fibrillation (7) Alzheimer disease: Assessment and Plan: Follows neurology. (8) Hypertension: Assessment and Plan: At goal. Hold losartan/aldactone for ELSA Qualifiers: Hypertension type: primary hypertension Qualified Code(s): I10 - Essential (primary) hypertension (9) BPH (benign prostatic hyperplasia): Assessment and Plan: c/w home meds Qualifiers: Lower urinary tract symptom presence: symptoms absent Qualified Code(s): N40.0 - Benign prostatic hyperplasia without lower urinary tract symptoms Plan Requires inpatient monitoring and treatment as he has multiple active issues including anemia requiring transfusion, ELSA requiring IVF and needs close monitoring to ensure his Hb remains stable and there is no active bleeding with his low plt count.
[2024-01-27 16:20] LABS: Hemoglobin 8.1 g/dL (14.0-18.0); Mean Corpuscular HGB Conc 34.5 g/dL (29.9-35.2); Mean Corpuscular Hemoglobin 36.3 pg (25.9-34.0); Mean Corpuscular Volume 105.4 fL (80.0-94.0); Mean Platelet Volume 10.1 fL (9.5-13.5); Platelet Count 64 10^3/uL (150-450); Red Blood Count 2.23 10^6/uL (4.70-6.10); Red Cell Distribution Width 16.2 % (11.0-15.0); White Blood Count 2.1 10^3/uL (4.0-11.0)
[2024-01-27 16:41] LABS: Hematocrit 23.5 % (42.0-54.0)
[2024-01-27] MEDS: ACETAMINOPHEN 325 MG TABLET 650 MG PO (18:41)
[2024-01-27 20:34] LABS: Hemoglobin 7.9 g/dL (14.0-18.0)
[2024-01-27 20:39] LABS: Hematocrit 23.7 % (42.0-54.0)
[2024-01-28 04:00] VITALS: BP 159/72; PULSE 69; TEMP 36.5; O2SAT 92
[2024-01-28] MEDS: LACTATED RINGER'S SOLUTION 1,000 ML 125 ML IV ×2 (04:00→12:07)
[2024-01-28 05:11] LABS: Basophils Percent Auto 0.5 % (0.2-2.0); Eosinophils Absolute Auto 0.1 10^3/uL (0.0-0.7); Eosinophils Percent Auto 3.7 % (0.9-7.0); Lymphocytes Absolute Auto 0.8 10^3/uL (1.2-3.8); Mean Corpuscular HGB Conc 33.9 g/dL (29.9-35.2); Mean Corpuscular Hemoglobin 35.7 pg (25.9-34.0); Mean Corpuscular Volume 105.4 fL (80.0-94.0); Mean Platelet Volume 9.5 fL (9.5-13.5); Monocytes Absolute Auto 0.1 10^3/uL (0.3-0.8); Monocytes Percent Auto 4.6 % (1.7-12.0); Neutrophils Absolute Auto 1.2 10^3/uL (1.4-6.5); Neutrophils Percent Auto 53.2 % (43.0-75.0); Platelet Count 62 10^3/uL (150-450); Red Blood Count 2.24 10^6/uL (4.70-6.10); Red Cell Distribution Width 16.8 % (11.0-15.0); White Blood Count 2.2 10^3/uL (4.0-11.0)
[2024-01-28 05:32] LABS: Alanine Aminotransferase 10 U/L (16-63); Albumin Globulin Ratio 0.4; Albumin Level 2.1 g/dL (3.4-5.0); Alkaline Phosphatase 54 U/L (46-116); Anion Gap 15.1; Aspartate Amino Transferase 16 U/L (15-37); BUN Creatinine Ratio 12.3; Bilirubin Total 0.7 mg/dL (0.2-1.0); Carbon Dioxide 23.9 mmol/L (21.0-32.0); Chloride 100 mmol/L (98-107); Estimated GFR (African America >60 (>=60); Estimated GFR (Non-African Ame 54 (>=60); Globulin 5.9 g/dL; Glucose 98 mg/dL (74-106); Sodium 135 mmol/L (136-145)
[2024-01-28 05:44] LABS: Hematocrit 23.6 % (42.0-54.0)
[2024-01-28 07:27] VITALS: BP 157/63; PULSE 64; TEMP 36.8; O2SAT 94
[2024-01-28] MEDS: FLUOXETINE HCL 20 MG CAPSULE 40 MG PO (08:00)
[2024-01-28] MEDS: DOXAZOSIN MESYLATE 2 MG TABLET 4 MG PO (08:00)
[2024-01-28] MEDS: SOLIFENACIN SUCCINATE 5 MG TABLET PO (08:01)
[2024-01-28] MEDS: FOLIC ACID 1 MG TABLET PO (08:01)
[2024-01-28] MEDS: FINASTERIDE 5 MG TABLET PO (08:01)
[2024-01-28] MEDS: METOPROLOL SUCCINATE 25 MG TAB.ER.24H PO (08:01)
[2024-01-28] MEDS: MEMANTINE HCL 28 MG CAP XR PO (08:01)
[2024-01-28 08:14] VITALS: PULSE 64
--- NOTE | 2024-01-28 10:10 | CM.NOTE ---
Rounds made with Dr. Phelan, awaiting PT and OT for discharge planning.
[2024-01-28 11:19] VITALS: BP 134/69; PULSE 62; O2SAT 90
--- NOTE | 2024-01-28 11:58 | SWNOTE1 ---
SW met with pt to discuss dc needs. Pt is aware he is at [facility] and is oriented to person, he is not sure on day or month at this time. SW and pt spoke about discharge planning and pt was telling SW he has been to therapy in past at the hospital with out therapy team. As SW and pt were talking, pt's daughter came in room as well. Pt's daughter did answer further questions about discharge planning. She voiced he has been getting more confused since . Pt lives at home with his and a nephew. Daughter goes over daily to be with pt to assist with various things. Pt has a walker at home, but does not use it.Daughter also stated they have moved his bed downstairs so he does not have any steps to go up and down. The daughter stated he usually holds on to her or his to get around. SW let her know that it is [facility]. Daughter is in agreement and pt is agreeable as well. SW explained rehab to pt and daughter and pt's insurance. Pt will be a precert. SW reviewed list from medicare.gov with star ratings. Pt and daughter stated [facility] as they know people who have been there. Daughter will update pt's and wrote down information in notebook. Referral sent to [facility]. Referral included face sheet, ED note, H&P, provider notes, case management report, wound consult, nursing notes, diagnostic imaging, med list, and PT/OT notes. Medicare Outpatient Observation Notice reviewed and discussed with patient. Pt. verbalized understanding and signed the form. Original given to patient and copy placed in patient?s chart.
--- NOTE | 2024-01-28 14:40 | SWNOTE1 ---
Pt's daughter did have further medical questions for doctor. SW reached out to Dr. Phelan and provided daughters number. [facility] started precert.
--- NOTE | 2024-01-28 15:35 | P.IMPN_ITS ---
Progress Note: A&P Assessment and Plan (1) ELSA (acute kidney injury): Assessment and Plan: Resolved with hydration. Monitor renal function (2) Pancytopenia: Assessment and Plan: Unclear etiology. WIll need outpatient w/u by Oncology. (3) Multiple falls: Assessment and Plan: PT/OT eval. Will need rehab. Awaiting precertification (4) Compression fracture of lumbar vertebra: Assessment and Plan: Pain is controlled. PT/OT eval. No changes. Qualifiers: Encounter type: subsequent encounter Lumbar vertebra fracture level: L4 Fracture healing: with routine healing Qualified Code(s): S32.040D - Wedge compression fracture of fourth lumbar vertebra, subsequent encounter for fracture with routine healing (5) Dementia: Assessment and Plan: Progressive decline and worsening. Outpatient follow up Qualifiers: Alzheimer's disease onset: early onset Dementia behavioral or psychological symptom: with mood disturbance Dementia severity: severe Dementia type: Alzheimer's Qualified Code(s): G30.0 - Alzheimer's disease with early onset; F02.C3 - Dementia in other diseases classified elsewhere, severe, with mood disturbance (6) Afib: Assessment and Plan: In NSR. S/p watchman. Qualifiers: Atrial fibrillation type: paroxysmal Qualified Code(s): I48.0 - Paroxysmal atrial fibrillation (7) Alzheimer disease: Assessment and Plan: Progressive decline. Follows neurology as outpatient. (8) Hypertension: Assessment and Plan: Stable Qualifiers: Hypertension type: primary hypertension Qualified Code(s): I10 - Essential (primary) hypertension (9) BPH (benign prostatic hyperplasia): Assessment and Plan: C/w finasteride. Qualifiers: Lower urinary tract symptom presence: symptoms absent Qualified Code(s): N40.0 - Benign prostatic hyperplasia without lower urinary tract symptoms Plan Awaiting pre cert. Hb stable. Will need outpatient w/u for pancytopenia. Internal Medicine - PN: Subj Subjective Interval history: Seen and examined. No overnight events. Hb stable. No active complaints other than back pain. Pleasantly confused about certain things. Poor memory but overall alert/oriented. Exam Constitutional Vital Signs, click to edit/add: Last Vital Signs Temp 98.2 F 01/28/24 07:27 Pulse 62 01/28/24 11:19 Resp 16 01/28/24 11:19 BP 134/69 01/28/24 11:19 Pulse Ox 90 L 01/28/24 11:19 O2 Del Method Room Air 01/28/24 11:19 Documenting provider has reviewed patient's vital signs: yes Common normals: no apparent distress General appearance: cooperative and comfortable Nutritional appearance: obese HENMT Common normals: normocephalic and head/scalp atraumatic Respiratory Common normals: normal respiratory effort, no use of accessory muscles and clear to auscultation bilaterally Effort & inspection: able to speak in complete sentences Cardio Common normals: no JVD, regular rate, regular rhythm, S1 normal heart sound and S2 normal heart sound GI Common normals: Normal to inspection, nondistended, normoactive bowel sounds present, soft to palpation, non-tender and no hepatosplenomegaly Extremity Common normals: normal to inspection and full ROM Neuro Common normals: oriented x3, moves all extremities, no focal motor deficits and no sensory deficits noted Psych Common normals: mental status grossly normal, cooperative, denies homicidal ideation and denies suicidal ideation Internal Medicine - PN: Obj Da Labs Labs: Laboratory Results - last 24 hr 01/27/24 01/27/24 01/28/24 16:16 20:26 04:31 WBC 2.1 L 2.2 L RBC 2.23 L 2.24 L Hgb 8.1 L 7.9 L 8.0 L Hct 23.5 L* 23.7 L* 23.6 L* MCV 105.4 H 105.4 H MCH 36.3 H 35.7 H MCHC 34.5 33.9 RDW 16.2 H 16.8 H Plt Count 64 L 62 L MPV 10.1 9.5 Neut % (Auto) 53.2 Lymph % (Auto) 38.0 [place] % (Auto) 4.6 Eos % (Auto) 3.7 Baso % (Auto) 0.5 Neut # (Auto) 1.2 L Lymph # (Auto) 0.8 L [place] # (Auto) 0.1 L Eos # (Auto) 0.1 Baso # (Auto) 0.0 Abs Immat Gran (auto) 0.00 Imm/Tot Granulo (auto) 0.0 Sodium 135 L Potassium 4.0 Chloride 100 Carbon Dioxide 23.9 Anion Gap 15.1 BUN 16.0 Creatinine 1.30 Est GFR ( Amer) >60 Est GFR (Non-Af Amer) 54 L BUN/Creatinine Ratio 12.3 Glucose 98 Calcium 10.0 Total Bilirubin 0.7 AST 16 ALT 10 L Alkaline Phosphatase 54 Total Protein 8.0 Albumin 2.1 L Globulin 5.9 Albumin/Globulin Ratio 0.4
[2024-01-28 15:43] VITALS: BP 123/69; PULSE 71; TEMP 36.4; O2SAT 92
[2024-01-28 20:00] VITALS: BP 163/78; PULSE 65; TEMP 36.8; O2SAT 92
[2024-01-28] MEDS: ACETAMINOPHEN 325 MG TABLET 650 MG PO (20:39)
[2024-01-29 00:53] VITALS: BP 151/67; PULSE 61; TEMP 36.7; O2SAT 93
[2024-01-29 04:11] VITALS: BP 167/75; PULSE 64; TEMP 36.8; O2SAT 93
[2024-01-29 04:40] LABS: Eosinophils Absolute Auto 0.1 10^3/uL (0.0-0.7); Hemoglobin 8.2 g/dL (14.0-18.0); Immature Granulocytes Abs Auto 0.01 10^3/uL (0.00-0.03); Immature Granulocytes Pct Auto 0.5 % (0.0-0.5); Lymphocytes Absolute Auto 1.1 10^3/uL (1.2-3.8); Lymphocytes Percent Auto 49.8 % (20.5-60.0); Mean Corpuscular HGB Conc 34.6 g/dL (29.9-35.2); Mean Corpuscular Hemoglobin 36.9 pg (25.9-34.0); Mean Corpuscular Volume 106.8 fL (80.0-94.0); Mean Platelet Volume 9.7 fL (9.5-13.5); Monocytes Absolute Auto 0.1 10^3/uL (0.3-0.8); Neutrophils Absolute Auto 0.9 10^3/uL (1.4-6.5); Neutrophils Percent Auto 39.7 % (43.0-75.0); Platelet Count 58 10^3/uL (150-450); Red Blood Count 2.22 10^6/uL (4.70-6.10); Red Cell Distribution Width 16.1 % (11.0-15.0); White Blood Count 2.2 10^3/uL (4.0-11.0)
[2024-01-29 04:48] LABS: Hematocrit 23.7 % (42.0-54.0)
[2024-01-29 05:01] LABS: Alanine Aminotransferase 11 U/L (16-63); Albumin Globulin Ratio 0.3; Albumin Level 2.1 g/dL (3.4-5.0); Alkaline Phosphatase 55 U/L (46-116); Anion Gap 15.4; Aspartate Amino Transferase 13 U/L (15-37); BUN Creatinine Ratio 9.3; Bilirubin Total 0.6 mg/dL (0.2-1.0); Calcium 10.1 mg/dL (8.5-10.1); Carbon Dioxide 25.3 mmol/L (21.0-32.0); Chloride 99 mmol/L (98-107); Estimated GFR (African America >60 (>=60); Estimated GFR (Non-African Ame >60 (>=60); Globulin 6.1 g/dL; Glucose 96 mg/dL (74-106); Potassium 3.7 mmol/L (3.5-5.1); Sodium 136 mmol/L (136-145); Total Protein 8.2 g/dL (6.4-8.2)
[2024-01-29] MEDS: FINASTERIDE 5 MG TABLET PO (08:57)
[2024-01-29] MEDS: DOXAZOSIN MESYLATE 2 MG TABLET 4 MG PO (08:57)
[2024-01-29] MEDS: FLUOXETINE HCL 20 MG CAPSULE 40 MG PO (08:57)
[2024-01-29] MEDS: METOPROLOL SUCCINATE 25 MG TAB.ER.24H PO (08:57)
[2024-01-29] MEDS: FOLIC ACID 1 MG TABLET PO (08:58)
[2024-01-29] MEDS: SOLIFENACIN SUCCINATE 5 MG TABLET PO (08:58)
[2024-01-29] MEDS: MEMANTINE HCL 28 MG CAP XR PO (08:58)
[2024-01-29 09:00] VITALS: BP 164/78; PULSE 68; TEMP 36.6; O2SAT 92
--- NOTE | 2024-01-29 11:23 | PT.DAILY ---
Physical Therapy Daily Note PT Daily Note/Assess Start: 01/28/24 09:40 Freq: Status: Active Protocol: Document 01/29/24 11:19 [place] (Rec: 01/29/24 11:23 GINO [id number]) Physical Therapy Daily Note/Assessment Time In/Time Out Time In 10:55 Time Out 11:11 Pain In Pain N/A Pain Out Pain N/A Subjective Subjective Pt sitting in BS chair upon arrival. present. Pt is agreeable to PT. Aware of his name and and knows he's at [facility]. Therapeutic Exercise Time Therapeutic Exercise Minutes (minutes) 5 Therapeutic Exercise Units 0 Therapeutic Exercise Treatment Therapeutic Exercise Treatment Seated bilat LE strengthening ex complete in BS chair 15x ea . Needs occ vc to stay on task and to keep proper form with ther ex. Therapeutic Activity Time Therapeutic Activity Minutes (minutes) 8 Therapeutic Activity Units 1 Therapeutic Activity Treatment Chair Transfer Ability Maximum Assist,1 Person Assist Therapeutic Activity Comments Attempts standing 4x from BS chair to RW but unable to shift his hips forward which leads to heavy posterior lean along with flexed posture at hip and knees. Pts bottom clears chair about 10 inches but pt is unable to standing fully and reach for RW to successfully stand. After 4x attempts pt becomes frustrated and is no longer willing to try to stand. Pt remains in BS chair with call light in reach and his is present. Total Physical Therapy Time Total Therapy Minutes 13 Total Physical Therapy Units 1 Summary Daily Note Summary Heavy assist needed for sit> stand transfer - decline in ability from previous day though he does cont to have significant posterior lean.
--- NOTE | 2024-01-29 11:29 | SWNOTE1 ---
Pt is medically stable for discharge today. HEMALATHA set up trips transportation for 1:00-1:30. SW notified pt's in room of time as well as [facility] and nursing. SW added updated labs, vitals, and therapy notes to packet. HEMALATHA completed HENS.
--- NOTE | 2024-01-29 11:33 | P.DS_ITS ---
DS: Providers Provider Date of admission: 01/26/24 22:59 Primary care physician: SAM PABON Admitting clinician: Shaikh Zhane Attending physician on admission: Shaikh Zhane Consults: 01/27/24 08:00 Consult to [employer] Distribution System Operator Routine Has provider been notified: No Reason for consult:: Other Other reason:: D/C Planning 01/27/24 09:00 Occupational Therapy Eval and Treat Routine Reason for consultation: Recurrent falls, L4 fx, weakness Has provider been notified: No Physical Therapy Eval and Treat Routine Reason for consultation: Recurrent falls, L4 Fx, weakness, Has provider been notified: No Attending physician on discharge: Shaikh Zhane Discharging clinician: Shaikh Zhane Anticipated date of discharge: 01/29/24 DS: Diagnosis Discharge Diagnosis (1) ELSA (acute kidney injury): Assessment and plan: Resolved with IV hydration (2) Pancytopenia: Assessment and plan: Of unclear etiology. Required one unit of packed red blood cells. He'll need outpatient workup (3) Multiple falls: Assessment and plan: Patient was evaluated by physical therapy and occupational therapy. Is accepted for inpatient rehab and Medically stable for discharge (4) Compression fracture of lumbar vertebra: Assessment and plan: New compression fracture without displacement/cord compromise. Pain is well controlled. He'll need outpatient follow-up with orthopedics. Qualifiers: Encounter type: subsequent encounter Lumbar vertebra fracture level: L4 Fracture healing: with routine healing Qualified Code(s): S32.040D - Wedge compression fracture of fourth lumbar vertebra, subsequent encounter for fracture with routine healing (5) Dementia: Assessment and plan: He is following up with Neurology as outpatient. Continue the same Qualifiers: Alzheimer's disease onset: early onset Dementia behavioral or p sychological symptom: with mood disturbance Dementia severity: severe Dementia type: Alzheimer's Qualified Code(s): G30.0 - Alzheimer's disease with early onset; F02.C3 - Dementia in other diseases classified elsewhere, severe, with mood disturbance (6) Afib: Assessment and plan: Status post watchman. On aspirin and Plavix. We will need to hold Plavix due to thrombocytopenia. Continue with aspirin for now. Qualifiers: Atrial fibrillation type: paroxysmal Qualified Code(s): I48.0 - Paroxysmal atrial fibrillation (7) Alzheimer disease: Assessment and plan: Continue with outpatient follow-up with neurology (8) Hypertension: Assessment and plan: continue his home meds Qualifiers: Hypertension type: primary hypertension Qualified Code(s): I10 - Essential (primary) hypertension (9) BPH (benign prostatic hyperplasia): Assessment and plan: Continue with home medications Qualifiers: Lower urinary tract symptom presence: symptoms absent Qualified Code(s): N40.0 - Benign prostatic hyperplasia without lower urinary tract symptoms DS: Summary Hospital Course Hospital Course: 78-year-old male with history of dementia, confusion was brought over by his for worsening ambulatory dysfunction And frequent falls. After his most r ecent fall, he was unable to get up and ambulate because of pain so by brought patient over to Emergency Room for further evaluation. Patient's workup revealed compression fracture of L4 vertebra and due to his recent decline in functional status, frequent falls and poorly controlled pain from compression fracture, was admitted to the hospital. He was also noted to have mild acute kidney injury for which he was started on IV fluids. Patient was noted to have pancytopenia that is chronic but required one unit of packed red blood cells during hospital stay. His hemoglobin remained stable After transfusion. There was no evidence of active/overt bleeding anywhere. Patient's pain was managed with combination of oral and IV narcotics. His pain remained well controlled. He was evaluated by physical therapy and occupational therapy and their recommendation was for the patient to have inpatient rehab due to Unstable gait and frequent falls. His insurance he required precertification and he was approved today for inpatient inpatient rehab. He is stable medically for discharge. Upon discharge, patient needs to follow-up with PCP in one week and orthopedic surgeon in 1-2 weeks. Status at Discharge Functional status at discharge: uses cane/walker Overall status at discharge: patient is progressing back to baseline Time Spent with Patient Time attestation: Total time spent providing and/or coordinating discharge services: Time spent: greater than 30 minutes Exam Constitutional Vital Signs, click to edit/add: Last Vital Signs Temp 97.8 F 01/29/24 09:00 Pulse 68 01/29/24 09:00 Resp 18 01/29/24 09:00 BP 164/78 H 01/29/24 09:00 Pulse Ox 92 L 01/29/24 09:00 O2 Del Method Room Air 01/29/24 09:00 Documenting provider has reviewed patient's vital signs: yes Common normals: no apparent distress General appearance: cooperative and comfortable Nutritional appearance: obese Respiratory Common normals: normal respiratory effort, no use of accessory muscles and clear to auscultation bilaterally Effort & inspection: able to speak in complete sentences Cardio Common normals: no JVD, regular rate, regular rhythm, S1 normal heart sound and S2 normal heart sound Extremity Common normals: normal to inspection and full ROM Neuro Common normals: oriented x3, moves all extremities, no focal motor deficits and no sensory deficits noted Psych Common normals: mental status grossly normal, cooperative, denies homicidal ideation and denies suicidal ideation DS: Data Data Completed and Pending Labs on day of discharge: Labs from last 24 hours 01/29/24 04:07 WBC 2.2 L RBC 2.22 L Hgb 8.2 L Hct 23.7 L* MCV 106.8 H MCH 36.9 H MCHC 34.6 RDW 16.1 H Plt Count 58 L MPV 9.7 Neut % (Auto) 39.7 L Lymph % (Auto) 49.8 [place] % (Auto) 5.0 Eos % (Auto) 5.0 Baso % (Auto) 0.0 L Neut # (Auto) 0.9 L Lymph # (Auto) 1.1 L [place] # (Auto) 0.1 L Eos # (Auto) 0.1 Baso # (Auto) 0.0 Abs Immat Gran (auto) 0.01 Imm/Tot Granulo (auto) 0.5 Sodium 136 Potassium 3.7 Chloride 99 Carbon Dioxide 25.3 Anion Gap 15.4 BUN 11.0 Creatinine 1.18 Est GFR ( Amer) >60 Est GFR (Non-Af Amer) >60 BUN/Creatinine Ratio 9.3 Glucose 96 Calcium 10.1 Total Bilirubin 0.6 AST 13 L ALT 11 L Alkaline Phosphatase 55 Total Protein 8.2 Albumin 2.1 L Globulin 6.1 Albumin/Globulin Ratio 0.3 Discharge Plan Discharge Disposition: Xfer Inpatient Rehab Fac Condition: Fair Discharge Medications: Continued cyanocobalamin (vitamin B-12) 1,000 mcg tablet 1,000 mcg PO DAILY doxazosin 4 mg tablet 4 mg PO DAILY finasteride 5 mg tablet 5 mg PO DAILY folic acid 1 mg tablet 1 mg PO DAILY metoprolol succinate 25 mg tablet extended release 24 hr 25 mg PO DAILY spironolactone 25 mg tablet 25 mg PO DAILY tolterodine 2 mg capsule,extended release 24hr 2 mg PO Q24H fluoxetine 40 mg capsule 40 mg PO DAILY memantine 10 mg tablet 10 mg PO BID aspirin 81 mg tablet,delayed release (DR/EC) 81 mg PO DAILY losartan 100 mg tablet 100 mg PO DAILY Discontinued loperamide 2 mg capsule 2 mg PO Q6H PRN (Reason: loose stool) clopidogrel 75 mg tablet 75 mg PO DAILY Print Language: Turkish Forms: Portal Instructions Follow Up Appointments: Follow up with PCP in 1-2 weeks Follow up with Orthopedic surgery in 1-2 weeks
[2024-01-29] MEDS: OXYCODONE HCL 5 MG TABLET PO (11:41)
--- NOTE | 2024-01-29 11:47 | SWNOTE1 ---
HEMALATHA emailed Belinda at [facility] the dc med rec and dc summary.
== END 2024-01-29 13:22 ==
LOC: ER 22:46 → MS 01-28 09:49
PROVIDERS: Physician Assistant; Registered Nurse; Admitting Provider Internal Medicine; Emergency Provider Internal Medicine; PCP Family Medicine; Visit Provider Internal Medicine
DX: N17.9 Acute kidney failure, unspecified (principal); D61.818 Other pancytopenia; S32.040A Wedge compression fracture of fourth lumbar vertebra, initial encounter for closed fracture; G30.0 Alzheimer's disease with early onset; F02.C3 Dementia in other diseases classified elsewhere, severe, with mood disturbance; I48.0 Paroxysmal atrial fibrillation; I10 Essential (primary) hypertension; G47.33 Obstructive sleep apnea (adult) (pediatric); N40.0 Benign prostatic hyperplasia without lower urinary tract symptoms; Z79.82 Long term (current) use of aspirin; Z79.02 Long term (current) use of antithrombotics/antiplatelets; W19.XXXA Unspecified fall, initial encounter; Z91.81 History of falling; Z86.73 Personal history of transient ischemic attack (TIA), and cerebral infarction without residual deficits
CPT/HCPCS: 36415; 36430; 72131; 80048; 80053; 83605; 84484; 85007; 85014; 85018; 85025; 85027; 86850; 86900; 86901; 93005; 96374; 96375; 97161; 97165; 97530; 97535; 99285; G0378; P9016

== ENCOUNTER 2024-02-04 01:01 | Outpatient (REF) | payer MEDICARE, SELFPAY ==
--- OUTSIDE RECORDS SUMMARY | 2024-02-04 01:05 | XMS_ITS ---
Author Organization [facility] Support Name Relationship Address Phone JERI, TORI Spouse Unknown [phone] JERI, TORI Spouse Unknown [phone] JERI, TORI Unknown Unknown [phone] JERI, TORI Unknown Unknown [phone] JERI, DAUGHTER Unknown Unknown [phone] [facility] Unknown Unknown Unavaila ble JERI, TORI Unknown [phone] JERI, TORI Unknown [phone] JERI, TORI Unknown Unknown [phone] JERI, TORI Unknown Unknown [phone] JERI, DAUGHTER Unknown Unknown [phone] NONE Unknown Unknown Unavailable JERI, TORI Unknown Unknown [phone] JERI, TORI Unknown Unknown [phone] JERI, DAUGHTER Unknown Unknown [phone] NONE Unknown Unknown Unavailable JERI, TORI Unknown Unknown [phone] JERI, TORI Unknown Unknown [phone] JERI, DAUGHTER Unknown Unknown [phone] NONE Unknown Unknown Unavailable JERI, TORI Unknown Unknown [phone] JERI, TORI Unknown Unknown [phone] JERI, DAUGHTER Unknown Unknown [phone] NONE Unknown Unknown Unavailable JERI, TORI Unknown Unknown [phone] JERI, JACY NaturalDaughter Unknown [phone] Jeri, Tori Spouse [address] [facility] [place] [address] + Jeri, Jacy NaturalDaughter [place], [place] [phone] JERI, TORI Unknown Unknown [phone] JERI, JACY NaturalDaughter Unknown [phone] Jeri, Tori Spouse [address] [facility] [place] [address] + Jeri, Jacy NaturalDaughter [place], [place] [phone] ARMENTA, JACY Parent Unknown [phone] Jeri, Tori Spouse [address] [facility] [place] [address] + Jeri, Jacy NaturalDaughter [place], [place] [phone] ARMENTA, JACY Parent Unknown [phone] ARMENTA, JACY Parent Unknown [phone] Jeri, Tori Spouse [address] [facility] [place] [address] + Jeri, Jacy NaturalDaughter [place], [place] [phone] ARMENTA, JACY Parent Unknown [phone] Care Team Providers Care Wire Twisting Machine Operator Name Role Phone RYAN COBB Admitting Unavailable RYAN COBB Attending Unavailable [facility] Unav ailable [facility] Unav ailable PURNIMA DAVIDSON JR Primary Care Unavailable SHERLEY CHAVEZ Attending Unavailable KYLEE ARREGUIN Attending Unavailable SHAFFERNICOLE BENTON DO Attending Unavailabl e SHAFFER DONICOLE Admitting Unavailabl e SHAFFERNICOLE BETNON DO Admitting Unavailabl e NICOLE SHAFFER DO Attending UnavailCAMILA Méndez MD Referring Unavailabl e RYAN COBB [facility]ending [facility] Unav ailRYAN Zapata Referring Unavailable [facility] Unav ailable Hernández, Za Admitting Unavailable Za Hernández Attending Unavailable Sam Cooney Primary Care Unavailable Hernández, Za Admitting Unavailable Za Hernández Attending Unavailable StoreySam Primary Care Unavailable Hernández, Za Admitting Unavailable Jessica Hernándeza Attending Unavailable Storey, Sam Primary Care Unavailable Jessica Hernándeza Attending Unavailable Hernández, Za Admitting Unavailable Storey, Sam Primary Care Unavailable BRISTOL, SAM E Referring Unavailable BRISTOL, SAM E Primary Care Unavailable ROXANNE GIVENS Attending Unavailable SAM COONEY Referring Unavailable BRISTOL, SAM Meneses Primary Care Unavailable Storey, Dr. Sam Evans Primary Care Unavailable ZA HERNÁNDEZ Referring Unavailable ZA HERNÁNDEZ Attending Unavailable Eros, Dr. Sam Evans Primary Care Unavailable Eros, Dr. Sam Evans Primary Care Unavailable Rodríguez, Ms. Louisa Hurt Referring Dima Arreguin, Ms. Louisa Hurt Attending Dima Cooney, Dr. Sam Evans Primary Care Unavailable ZA HERNÁNDEZ Attending Unavailable SAM COONEY Primary Care Unav ailable Wong FERGUSON Attending Unavailable EVELIA BAKER Attending Unavailab le Wong FERGUSON Attending Unavailable Purpose PROBLEMS DATE TYPE CONDITION / CODE ATTENDING STATUS [facility] Unknown (Idiopathic) nor mal pressure hydrocephalus / G91.2(ICD-10) ROXANNE GIVENS [facility] 01/15/2024 Unknown Consult / FREETEXT(AOF) ROXANNE GIVENS [facility] 12/28/2023 Unknown Pain, unspecifie d / R52(ICD-10) NA [facility] 10/22/2023 Admitting Diagnosis Encounter for preprocedural cardiovascular examination / Z01.810(ICD-10) [facility] 10/22/2023 Admitting Diagnosis Personal history of nicotine dependence / Z87.891(ICD-10) [facility] 10/22/2023 Admitting Diagnosis Unspecified mood (affective) disorder (CMS/HCC) / F39(ICD-10) [facility] 09/11/2023 Admitting Diagnosis Pain in left shoulder / M25.512(ICD-10) [facility] 08/27/2023 Admitting Diagnosis Presence of other cardiac implants and grafts / Z95.818(ICD-10) [facility] 08/22/2023 Admitting Diagnosis Paroxysmal atrial fibrillation (CMS/HCC) / I48.0(ICD-10) [facility] 08/10/2023 Admitting Diagnosis Mixed hyperlipidemia / E78.2(ICD-10) [facility] 08/10/2023 Admitting Diagnosis Essential (primary) hypertension / I10(ICD-10) [facility] 08/22/2023 Admitting Diagnosis Unspecified atrial fibrillation / I48.91(ICD-10) RYAN COBB [facility] 08/22/2023 Admitting Diagnosis laao / UNK(Unknown) RYAN COBB [facility] 07/31/2023 Active Preop examinatio n / Z01.818(ICD-10) NA [facility] 05/07/2023 Unknown Encounter for adjustment and management of other cardiac device / CE(ICD-10) [facility] PROCEDURES DATE CODE DESCRIPTION STATUS SOURCE 12/28/2023 DTM3864(C4) CT WATCHMAN FULL CONTRAST Completed [facility] 10/22/2023 LAB18(C4) LIPID PANEL Completed [facility] 10/22/2023 LAB17(C4) COMPREHENSIVE METABOLIC PANEL Comple [facility] 08/22/2023 EP22(C4) ELECTROPHYSIOLOGY PROCEDURE Complete d [facility] 08/22/2023 TDC702(C4) CREATININE Completed [facility] VITAL SIGNS No Vital Signs Records Found RESULTS CT WATCHMAN FULL CONTRAST Observed: 01/2024 9:57 AM Status: F Source: [facility] Interpreted By: Merissa Aguilera, STUDY: CT WATCHMAN FULL CONTRAST; 12/28/2023 10:40 am INDICATION: Signs/Symptoms:A-fib, Post-Watchman. COMPARISON: CT dated 08/28/2023 ACCESSION NUMBER(S): [id number] ORDERING CLINICIAN: RYAN COBB TECHNIQUE: Using multi [...] Fleischner Society 2017, Radiology. 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 Proteinuria Your Care Team Attending Physician - Wong FERGUSON MD Primary Care Physician - SAM COONEY DO This Is Your Medications List tolterodine (tolterodine 2 mg Cap-ER) Contact prescribing physician if questions or concerns APAP/butalbital/caffeine (APAP/butalbital/caffeine 325 mg-50 mg-40 mg Tab) Misc Prescription [...] spironolactone (spironolactone 25 mg Tab) thyroid desiccated ([place] Thyroid) Procedures Performed Urethral dilatation (11/03/2022), TURP [...] med dosage) Where: [facility] [address], [place] [phone] Medications What How Much When Instructions Changed tolterodine (tolterodine 2 mg Cap-ER) 1 Capsules By Mouth As Directed Take one cap in the morning and one at dinnertime. Pickup at [facility]/pharmacy #[id number] Unchanged APAP/ butalbital/ caffeine (APAP/ butalbital/ caffeine [...] if questions or concerns Unchanged thyroid desiccated ([place] Thyroid) By Mouth Every day Contact prescribing physician if questions or concerns Pharmacy Information [facility]/pharmacy #[id number]: [address], [place] [phone] Allergies No Known Allergies Problems Ongoing - [...] health care provider. General instructions ? Take gltv-yxz-iaruyiq and prescription medicines only as told by [...] your health care provider monitor your condition. ? Keep all follow-up visits. This is important. Contact a health care provider if: ? You have a fever or chills. ? Your symptoms do not get better with treatment. ? Your pain and discomfort get worse. ? You have more frequent urges to urinate. Get help right away if: ? You are not able to control your bladder. Summary ? Overactive bladder refers to a condition in which a person has a sudden and frequent need to urinate. ? Several conditions may lead to an overactive bladder. ? Treatment for overactive bladder depends on the cause and severity of your condition. ? Making lifestyle changes, doing Kegel exercises, keeping a log, and taking medicines can help with this condition. This information is not intended to replace advice given to you by your health care provider. Make sure you discuss any questions you have with your health care provider. Document Revised: 05/30/2021 Document Reviewed: 05/30/2021 [employer] Patient Education ? 2022 [employer]. UROLOGY OFFICE/CLINIC NOTE Observed: 07/2024 4:15 PM Status: F Source: [facility] REPOSITORY Chief Complaint 4m to starting Tolterodine HPI [...] morning and night). New rx sent to [facility]. -Double void maneuvers 2. BPH with urinary [...] Follow-up With When Contact Information MARTY BETANCOURT, Wong Frost, URL [facility] [address], [place] [address]- [phone] Additional Instructions: 6 mos (increase med dosage) [...] (08/31/2022), Cystoscopy (01/24/2022), Colonoscopy, Shoulder replacement. Medications APAP/butalbital/caffeine 325 mg-50 mg-40 mg Tab [place] Thyroid, Oral, Daily atorvastatin, Oral, Daily Butapap [...] lifetime) Tobacco Use:. Never Smokeless Tobacco Use:. Household tobacco concerns: No. Yes, 12/03/2023 Family History Arthritis: Father. Hypertension: Father. Immunizations [...] of Care Results Bilirubin Urine Dipstick: Negative (12/03/23 15:21:00) Blood Urine Dipstick: Trace-lysed (12/03/23 15:21:00) Glucose Urine Dipstick: Negative (12/03/23 15:21:00) Ketones Urine Dipstick: Negative (12/03/23 15:21:00) Leukocytes Urine Dipstick: Negative (12/03/23 15:21:00) Nitrite Urine Dipstick: Negative (12/03/23 15:21:00) Protein Urine Dipstick: 1+ (30 mg/dl) (12/03/23 15:21:00) Specific [place] Urine Dipstick: 1.025 (12/03/23 15:21:00) Urine Appearance Urine Dipstick: Clear (12/03/23 15:21:00) Urine Color Urine Dipstick: Yellow (12/03/23 15:21:00) Urobilinogen Urine Dipstick: Normal 0.2-1 EU/dl (12/03/23 15:21:00) pH Urine Dipstick: 5 (12/03/23 15:21:00) Result Comment: Electronical ly Signed By: Wong FERGUSON MD\.br\Date and Time Signed: 12/03/23 16:17 EDT\.br\Electronically Co-Signed By: Marcela Lake\.br\Date and Time Co-Signed: 12/03/23 16:16 EDT PATIENT EDUCATION Observed: 12/03/2023 4:13 PM Status: F Source: [facility] REPOSITORY Obstetrics and Gynecology Overactive Bladder, Adult Overactive [...] health care provider. General instructions ? Take oipl-nvg-saoxtqf and prescription medicines only as told by [...] your health care provider monitor your condition. ? Keep all follow-up visits. This is important. Contact a health care provider if: ? You have a fever or chills. ? Your symptoms do not get better with treatment. ? Your pain and discomfort get worse. ? You have more frequent urges to urinate. Get help right away if: ? You are not able to control your bladder. Summary ? Overactive bladder refers to a condition in which a person has a sudden and frequent need to urinate. ? Several conditions may lead to an overactive bladder. ? Treatment for overactive bladder depends on the cause and severity of your condition. ? Making lifestyle changes, doing Kegel exercises, keeping a log, and taking medicines can help with this condition. This information is not intended to replace advice given to you by your health care provider. Make sure you discuss any questions you have with your health care provider. Document Revised: 05/30/2021 Document Reviewed: 05/30/2021 [employer] Patient Education ? 2022 [employer] UTILIZATION REVIEW NOTE Observed: 2023 2:29 PM Status: F Source: [facility] REPOSITORY EXT REC DAY 0. CASE CANCELLE D DUE TO LOW H&H. PROCEDURE CANCELATION DOCUMENATION-TEXT Observed: 11/20/2023 10:21 AM Status: F Source: [facility] REPOSITORY Procedure Cancelation Docume ntation Entered On: 11/20/2023 10:21 EST Performed On: 11/20/2023 10:17 EST by Sahra Lizarraga RN Procedure Cancelation Documentation Surgery Procedure Cancelation : 11/20/2023 10:17 EST Surgery Procedure Cancel Reason : low hemoglobin/hematocrit. dr shaffer spoke with patient + pt's at length. pt instructed to contact primary care physician Sahra Lizarraga RN 11/20/2023 10:17 EST PREPROCEDURE CHECKLIST-TEXT Observed: 10:00 AM Status: F Source: [facility] REPOSITORY Preprocedure Checklist Enter ed On: 11/15/2023 14:01 EST Performed On: 11/20/2023 [...] living, hemodialysis, infusion clinic, penitentiary, assisted living, retirement, homeless residential, etc.)? : No Sahra Lizarraga RN - [...] Procedure Location : Surgery Sahra Lizarraga RN 11/20/2023 9:50 EST Surgery Prep Grid CHG Cloth Prep in SOCO : Yes Sahra Lizarraga RN 11/20/2023 9:50 EST Patient Rights Grid Surgical Consent Signed : Yes Mary Ellen Price RN - 11/20/2023 9:50 EST Anesthesia Consent Signed : No Blood Consent Signed : Yes Mary Ellen Price RN - 11/15/2023 13:49 EST Procedure Checklist is completed for: : left reverse total shoulder replacement, bicep tenodesis Mary Ellen Price RN 11/15/2023 13:49 EST Allergy (As Of: 11/20/2023 [...] on and Verified : Yes Fall Risk Flooring Helper : Yes Blood Band on and Verified : Yes Current H&P in Medical Record : Yes (Comment: 11/15/23 [Mary Ellen Price RN - 11/15/2023 13:49 EST] ) Mary Ellen Price RN - 11/20/2023 9:50 EST Current ECG in Medical Record : Yes (Comment: 10/12/23 [Mary Ellen Price RN - 11/15/2023 13:49 EST] ) Basic [place] : Yes (Comment: 10/12/23 [Mary Ellen Price RN 11/15/2023 13:49 EST] ) Prox / APTT : Yes (Comment: 10/12/23 [Mary Ellen Price RN - 11/15/2023 13:49 EST] ) Mary Ellen Price RN - 11/15/2023 13:49 EST CBCND : Yes (Comment: 11/15/23- faxed results to Dr. Shaffer's office [Ai Price RNna - 11/15/2023 13:49 EST] ) Mary Ellen Price RN - 11/15/2023 15:39 EST Type & Screen : Yes (Comment: 11/15/23 [Mary Ellen Price RN - 11/15/2023 13:49 EST] ) UA : Yes (Comment: 11/15/23 [Mary Ellen Price RN 11/15/2023 13:49 EST] ) Mary Ellen Price [...] Yes Family Waiting : Yes (Comment: , tori [Sahra Lizarraga RN - 11/20/2023 9:50 EST] [...] : Living will, Medical durable power of ip attorney Advance Directive Location : Family to bring in copy from home Advance Directive Additional Information : No Mary Ellen Price RN - 11/15/2023 14:17 EST Surgical Clipper Prep Surgery Clipper Prep : done in preop Sahra Lizarraga RN - 11/20/2023 9:50 EST CLINICAL REHAB SPECIALIST DETAILS- TEXT Observed: 10/26 9:57 AM Status: F Source: [facility] REPOSITORY Associate Property Manager Details Entered On: 11/20/2023 9:57 EST Performed On: 11/20/2023 9:56 EST by Sahra Lizarraga RN Associate Property Manager Details Transport Mode Order Detail EV : [...] : No Pacemaker Order Detail : 0 Associate Property Manager Details Review Status : Initial Review Nurse Collects Blood Specimens : No Sahra Lizarraga RN - 11/20/2023 9:56 EST SOCO EDUCATION - TEXT Observed: 9:51 AM Status: C Source: [facility] REPOSITORY SOCO Education Entered On: 13:49 EST Performed On: 11/20/2023 9:51 EST [...] Education Dialysis Surgery - Hospital form # [id number] : Verbalizes understanding Mary Ellen Price RN [...] Ellen Price RN - 11/15/2023 13:49 EST UTILIZATION REVIEW NOTE Observed: 2023 6:14 PM Status: C Source: [facility] REPOSITORY Reg as EXT REC, no documents . NOT IPO Still no information from [facility] yet. Still no information from [facility] yet. Approved for outpatient per [facility]. MAN DIFF Collected: 11/15/2023 10:11 PM Status: F Source: [facility] REPOSITORY TYPE CODE TESTS RESULT OUT OF RANGE REFERENCE UNITS LAB [id number](LOINC) Absolute Seg Ct 1.10 Low 1.40-8.80 x1000 LAB 1589148 Eosinophil % 3 Normal % LAB 8448175 Absolute Lymph Ct 1.10 Low 1.20-4.80 x1000 LAB 1838367 Absolute Band Ct 0.12 Normal 0.00-0.70 x1000 LAB 7607 Band % 5 Normal % LAB 6431591 Absolute Eos Ct 0.07 Normal 0.00-0.50 x1000 LAB 8300 Macrocytosis Moderate Normal LAB 2856159 Lymphocyte % 46 Normal % LAB CD:[id number](L OINC) Absolute Neutrophil Ct 1.22 Low 1.40-8.80 x1000 LAB 8408740(LOINC) Segmented Neut % 46 Normal % Performed By: #### [id number], 1 71055 #### [facility] [address] [place] [address] Personnel Analyst: Eh Gould MD HEMO Collected: 10:11 PM Status: C Source: [facility] REPOSITORY TYPE CODE TESTS RESULT OUT OF RANGE REFERENCE UNITS LAB 8314 MCHC 34.6 Normal 32.0-37.0 g/dL LAB 9643135(LOINC) Instr WBC 2.4 Normal LAB 8315 MCV 110.6 High 80.0-100.0 fL LAB 8340 MPV 6.4 Low 7.4-10.4 fL LAB 8153 HGB 8.7 Low 13.5-17.5 g/dL LAB 8618 RDW 14.5 Normal 11.5-14.5 % LAB 8986 WBC 2.4 Low 4.5-11.0 x10 LAB [id number](LOIN C) DxH Actions See Notes Abnormal Result Comment: Scan for RBC Morphology Scan Slide. Perform manual diff if needed. SNV LAB 8313 MCH 38.3 High 27.0-34.0 pg LAB 8129 HCT 25.3 Low 41.0-52.0 % LAB 8611 RBC 2.29 Low 4.70-6.10 x10 Result Comment: Note: RBC mo rphology is normal unless otherwise stated. Evaluation performed only if differential is requested. LAB 2575993 Platelet 142 Low 150-450 x10 LAB 3438917(LOINC) DIFF? Yes Normal LAB 19231757 Nucleated RBC 0 Normal /100WBC Performed By: #### [id number], 1 32130 #### [facility] [address] [place] [address] Personnel Analyst: Eh Gould MD PREADMISSION TESTING PROGRESS NOTE Observed: 11/15/2023 4:06 PM Status: C Source: [facility] REPOSITORY Faxed CBC results to Dr. Jacob dias' s office. Called office and left a voice message regarding CBC results being faxed and a call back phone number. Dr. Shaffer's office phoned back, read CBC results from 11/15/23 and 10/12/23. She stated she will talk to Dr. Shaffer. No Orders received during the phone conversation. ABSC Collected: 4:05 PM Status: F Source: [facility] REPOSITORY TYPE CODE TESTS RESULT OUT OF RANGE REFERENCE UNITS LAB CD:[id number](LO INC) ABSC Final Interp Negative Normal LAB CD:875079386(LO INC) VS SCI Gel 0 Normal LAB CD:397044818(LO INC) VS SCII Gel 0 Normal LAB 203417570(LOINC ) Pt Hx check done? Yes Normal Performed By: #### CD:882211 913, CD:[id number] #### [facility] [address] [place] [address] Personnel Analyst: Eh Gould MD UA Collected: 11/15/2023 3:59 PM Status: F Source: [facility] REPOSITORY TYPE CODE TESTS RESULT OUT OF RANGE REFERENCE UNITS LAB 1553087 Bilirubin, U Negative Normal Negative LAB 0048792 Nitrite, U Negative Normal Negative LAB 0285059 Appearance, U Clear Normal LAB 2193617 Protein, U Negative Normal Negative LAB 2040578 Mucous, U Occasional Normal LAB 6364374 Blood, U Small Abnormal Negative LAB 2759950 WBC/HPF, U 2 Normal 0-5 #/HPF LAB 7193082 Leukocyte Esterase, U Negative Normal Negative LAB 1323965 Ketones, U Negative Normal Negative LAB 0828428 Glucose Qual, U Negative Normal Negative LAB 8669408 Urobilinogen Qual, U <2.0 mg/dl Normal <2.0 mg/dl Result Comment: EU/dl and mg /dl are equivalent units. LAB 9907604 pH, U 5.0 Normal 4.5-8.0 LAB 8118314 Squamous Epithelial Cells, U <1 Normal #/HPF LAB 8083699 Color, U Yellow Normal LAB 0878340 RBC/HPF, U <1 Normal 0-3 #/HPF LAB 4038924 Specific [place], U 1.014 Normal 1.001-1.035 LAB 0388653 U MICRO Indicated Normal Performed By: #### [id number] ## ## [facility] [address] [place] [address] Personnel Analyst: Eh Gould MD ABORH Collected: 11/15/2023 3:36 PM Status: F Source: [facility] REPOSITORY TYPE CODE TESTS RESULT OUT OF RANGE REFERENCE UNITS LAB CD:699587109(L OINC) ABORH Interpretation A Positive Normal LAB CD:742993725(L OINC) VS 0.8% a cells 0 Normal LAB CD:420032129(L OINC) VS Anti-D Unit 4+ Normal LAB CD:248456545(L OINC) VS Anti-A Unit 4+ Normal LAB CD:756348112(L OINC) VS 0.8% b cells 3+ Normal LAB CD:563282154(L OINC) VS Anti-B Unit 0 Normal LAB 278633137(LOIN C) Patient History Check Previous Hx Normal Performed By: #### CD:503881 913, CD:635851126 #### [facility] [address] [place] [address] Personnel Analyst: Eh Gould MD HISTORY AND PHYSICAL Observed: 4 2:17 PM Status: P Source: [facility] REPOSITORY Patient: NEIL MARCELO Age: 78 years Sex: Male : 1945 [...] 500 mg = 1 tabs, PRN, ORAL, [id number] acetaminophen/butalbital/caffeine 325 mg-50 mg-40 mg oral tablet = Fioricet 1 tabs, PRN, ORAL, [id number] Aspirin EC 81 mg oral delayed release [...] 2 mg = 1 caps, PRN, ORAL, [id number] losartan 100 mg oral tablet 100 mg [...] strength, No tenderness, No swelling. Integumentary: Warm, [place]. Neurologic: Alert, Oriented. Cognition and Speech: Oriented, [...] Dr. Cobb 08/28/23. Given cardiac clearance and oAC clearance 3. HTN 4. HLD 5. DONNA 6. History of CVA 7. Hypothyroidism 8. Chronic oAC- BMI Orders Amish MARTINEZ CNP, NAUN on PREADMISSION TESTING PROGRESS NOTE Observed: 11/15/2023 2:16 PM Status: F Source: [facility] REPOSITORY PREADMISSION TESTING (PAT) I NSTRUCTION SHEET [ X] Bring your Surgery Guide [...] visit, must be reported to your surgeon. DVT/VTE RISK FACTOR-TEXT Observed: 11/15 1:49 PM Status: F Source: [facility] REPOSITORY DVT/VTE Risk Factor Entered On: 11/15/2023 13:49 [...] Ellen Price RN - 11/15/2023 13:48 EST PREADMISSION TESTING PROGRESS NOTE Observed: 11/14/2023 10:53 AM Status: F Source: [facility] REPOSITORY Registration called P.A.TDeidres tating the pt. may not show and reschedule. Pt did not show for appointment. Called Dr. Shaffer's office. Spoke to Alexandra, she stated the CT foe watchman check is scheduled for the 20 of November and is needed for the clearance to be completed. UTILIZATION REVIEW NOTE Observed: 2023 5:09 PM Status: C Source: [facility] REPOSITORY Reg as PRE ADMIT, no documen ts, NOT IPO. I will send to [facility], needs changed to EXT. email sent to [facility] and surgery scheduling to change this to ext rec Surgery schedule updated to Ext Rec [facility] still has not updated registration, email was already sent to them by STEFF. Same as above. 10/16/23 LEFT REVERESE TOTAL SHOULDER REPLACEMENT CANCELED PER [facility]. CANCELLED. ABORH Collected: 10/15/2023 3:12 PM Status: C Source: [facility] REPOSITORY TYPE CODE TESTS RESULT OUT OF RANGE REFERENCE UNITS LAB CD:205343186(L OINC) VS Anti-D Unit 4+ Normal LAB CD:288722911(L OINC) VS Anti-A Unit 4+ Normal LAB CD:265263941(L OINC) ABORH Interpretation A Positive Normal LAB CD:750185322(L OINC) VS 0.8% a cells 0 Normal LAB CD:013215570(L OINC) VS Anti-B Unit 0 Normal LAB CD:465222563(L OINC) VS 0.8% b cells 3+ Normal LAB 380648093(LOIN C) Patient History Check No Previous Hx Normal Result Comment: 10/12/2023 1 0:30 [id number] ABO Recheck to be ordered on admit. Surgery Date: 10/16/23 LAB 8551461(LOINC) Anti-B recheck 0 Normal LAB 4178605(LOINC) Anti-D recheck 3+ Normal LAB 1995986(LOINC) Anti-A recheck 4+ Normal LAB 4447785(LOINC) ABORH CK Interp A POS Normal Performed By: #### CD:[id number], CD:[id number] #### [facility] [address] [place] [address] Personnel Analyst: Eh Gould MD PREADMISSION TESTING PROGRESS NOTE Observed: 10/15/2023 11:21 AM Status: C Source: [facility] REPOSITORY Yesterday I spoke with Terrence hightower CNP regarding Patient having Watchman placed in [...] who stated [facility] and delayed due to weather conditions. Patient [...] voice mail all available numbers for office, scheduler conveyor and PA. Left messages on voice mail [...] with patient and and notify surgery scheduling. PATHOLOGIST REVIEW Collected: 10:40 AM Status: C Source: [facility] REPOSITORY Order Comment: Added on by D iscern Expert Rule. TYPE CODE TESTS RESULT OUT OF RANGE REFERENCE UNITS LAB 6998596 Diff Review Interp Review of peripheral smear [...] ruled out. Clinical correlation is recommended. Normal Result Comment: CAMILA ANA PAULA K ABIRA (Electronic Signature) Date Verified 10/15/23 Performed By: #### [id number], [id number], [id number], 976043, 147956, 609299 #### [facility] [address] [place] [address] Personnel Analyst: Eh Gould MD ABSC Collected: 4 10:45 AM Status: F Source: [facility] REPOSITORY TYPE CODE TESTS RESULT OUT OF RANGE REFERENCE UNITS LAB CD:[id number](LO INC) ABSC Final Interp Negative Normal LAB CD:[id number](LO INC) VS SCI Gel 0 Normal LAB CD:[id number](LO INC) VS SCII Gel 0 Normal LAB 506826088(LOINC ) Pt Hx check done? Yes Normal Performed By: #### CD:[id number], CD:[id number] #### [facility] [address] [place] [address] Personnel Analyst: Eh Gould MD HEMO Collected: 4 10:42 AM Status: F Source: [facility] REPOSITORY TYPE CODE TESTS RESULT OUT OF RANGE REFERENCE UNITS LAB 8986 WBC 2.8 Low 4.5-11.0 x10 LAB 8313 MCH 37.4 High 27.0-34.0 pg LAB 134073423(LOIN C) DxH Actions See Notes Abnormal Result Comment: Scan for RBC Morphology Scan Slide. Perform manual diff if needed. SNV LAB 8129 HCT 27.4 Low 41.0-52.0 % LAB 8611 RBC 2.51 Low 4.70-6.10 x10 Result Comment: Note: RBC mo rphology is normal unless otherwise stated. Evaluation performed only if differential is requested. LAB 0546213 Platelet 165 Normal 150-450 x10 LAB 8314 MCHC 34.2 Normal 32.0-37.0 g/dL LAB 0646316(LOINC) Instr WBC 2.8 Normal LAB 8315 MCV 109.4 High 80.0-100.0 fL LAB 8153 HGB 9.4 Low 13.5-17.5 g/dL LAB 8340 MPV 6.3 Low 7.4-10.4 fL LAB 8618 RDW 13.5 Normal 11.5-14.5 % LAB 6820410(LOINC) HEM PATH REVIEW See Diff Review Interp Normal LAB 06619435 Nucleated RBC 0 Normal /100WBC LAB 3678152(LOINC) DIFF? No Normal Performed By: #### 0682207, 762776, 7145414, 446225, 733617, 643705 #### [facility] [address] [place] [address] Personnel Analyst: Eh Gould MD AUTO DIFF Collected: 4 10:42 AM Status: F Source: [facility] REPOSITORY TYPE CODE TESTS RESULT OUT OF RANGE REFERENCE UNITS LAB 6003938 Neutrophil Count (ANC) 1.48 Normal 1.40-8.80 x1000 LAB 6167659 Eosin % 7.5 Normal % LAB 404988489(LOIN C) Red Blood Cell Morphology See Notes Abnormal Result Comment: Macrocytosis 2+ Rouleaux 1+ LAB 0551768 Neutrophil % 52.5 Normal % LAB 5105182 Lymph % 36.5 Normal % LAB 3455733 Eos Count 0.21 Normal 0.00-0.50 x1000 LAB 2213002 Lymph Count 1.03 Low 1.20-4.80 x1000 LAB 0219968(LOINC) Scan Differential Diff Scd Normal Result Comment: Slide review ed by technologist. LAB 9467572 Basos % 0.8 Normal % LAB 9581428 Bland % 2.8 Normal % LAB 7138167 Baso Count 0.02 Normal 0.00-0.20 x1000 LAB 8379842 Bland Count 0.08 Low 0.10-1.00 x1000 Performed By: #### 3973218, 638047, 4530893, 684226, 599446, 873405 #### [facility] [address] [place] [address] Personnel Analyst: Eh Gould MD PT INR Collected: 4 10:39 AM Status: F Source: [facility] REPOSITORY TYPE CODE TESTS RESULT OUT OF RANGE REFERENCE UNITS LAB 8208(LOINC) INR 1.2 Normal Result Comment: INR Referenc e Range: Normal reference range for INR on patients not on anticoagulant therapy: 0.9-1.1 General therapeutic range for patients on anticoagulant therapy: 2.0-3.5 LAB 7746516(LOINC) Protime Patient 13.4 High 9.8-12.8 seconds Performed By: #### 3235970, 171773, 4767569, 690880, 727183, 968290 #### [facility] [address] [place] [address] Personnel Analyst: Eh Gould MD APTT Collected: 4 10:26 AM Status: F Source: [facility] REPOSITORY TYPE CODE TESTS RESULT OUT OF RANGE REFERENCE UNITS LAB 6577979(LOINC) APTT Patient 29.5 Normal 27.0-38.0 se conds Result Comment: APTT Interpr etation: This test has not been validated to monitor heparin therapy. APTT test is used as an initial test for suspected bleeding disorder. Anti-Xa UFH test is used to monitor heparin therapy. Performed By: #### 5259225, 552801, 4589303, 410807, 223157, 485882 #### [facility] [address] [place] [address] Personnel Analyst: Eh Gould MD UA Collected: 4 10:15 AM Status: F Source: [facility] REPOSITORY TYPE CODE TESTS RESULT OUT OF RANGE REFERENCE UNITS LAB 1840597 Protein, U Negative Normal Negative LAB 6763952 Hyaline Cast <1 Normal #/HPF LAB 0132277 Appearance, U Clear Normal LAB 5214216 Blood, U Moderate Abnormal Negative LAB 3001207 WBC/HPF, U 7 High 0-5 #/HPF LAB 0308535 Leukocyte Esterase, U Negative Normal Negative LAB 6154010 U MICRO Indicated Normal LAB 2645428 Ketones, U Negative Normal Negative LAB 7337535 Urobilinogen Qual, U <2.0 mg/dl Normal <2.0 mg/dl Result Comment: EU/dl and mg /dl are equivalent units. LAB 1186492 Glucose Qual, U Negative Normal Negative LAB 4995034 pH, U 5.0 Normal 4.5-8.0 LAB 5133239 Mucous, U Occasional Normal LAB 3889801 Color, U Yellow Normal LAB 0501203 RBC/HPF, U 5 High 0-3 #/HPF LAB 4227732 Specific [place], U 1.016 Normal 1.001-1.035 LAB 4057446 Nitrite, U Negative Normal Negative LAB 4756020 Bilirubin, U Negative Normal Negative Performed By: #### 897061 ## ## [facility] [address] [place] [id number] Personnel Analyst: Eh Gould MD SOCO EDUCATION - TEXT Observed: 10:13 AM Status: F Source: [facility] REPOSITORY SOCO Education Entered On: 10:13 EST Performed On: 10/12/2023 10:10 EST [...] Education Dialysis Surgery - Hospital form # [id number] : Needs further teaching Amy Hager RN 10/12/2023 10:10 EST Pain Pain Education Topics [...] EDUCATION OF BLOOD THINNERS [Amy Hager RN - 10/12/2023 10:10 EST] ) Amy Hager RN - 10/12/2023 10:10 EST BASICMETA Collected: 10:07 AM Status: F Source: [facility] REPOSITORY TYPE CODE TESTS RESULT OUT OF RANGE REFERENCE UNITS LAB 1441760 K 4.0 Normal 3.5-5.1 mmol/L LAB 9172253 Calculated Osmolality 281 Normal 275-295 mOsm/kg LAB 5821966 Calcium 10.1 Normal 8.7-10.4 mg/dL LAB 7678 BUN 16 Normal 9-23 mg/dL Result Comment: - Venipunctu re should occur prior to N-Acetyl Cysteine (NAC) or Metamizole (Sulpyrine) administration due to the potential for falsely depressed results. - Blood samples from some patients with monoclonal gammopathies may produce falsely elevated results LAB 7657020 Glucose 111 High 74-106 mg/dL LAB 9492814 Chloride 103 Normal 98-107 mmol/L LAB 73795536 Glomerular Filtration Rate 59 Normal mL/min/1 .73m? Result Comment: Non- GFR Calc Medical judgement [...] GFR) should be used for drug dosing. LAB 5666825 Na 140 Normal 135-145 mmol/L LAB 9802369 BUN/Creat Ratio 13.3 Normal LAB 7502156 Creatinine 1.2 High 0.6-1.1 mg/dL LAB 749718692(LOIN C) GFR AA >60 Normal Result Comment: Fausto Rodarte ican GFR Calc Medical judgement is necessary to interpret GFR. The calculated GFR may not accurately reflect renal status in patients >70 years, women, acutely ill hospitalized patients and patients with acute renal failure or known renal disease. The MDRD GFR formula is valid only for adults greater than 18 years of age. Note: Creatinine clearance (not GFR) should be used for drug dosing. LAB 6548408 CO2, venous 27.0 Normal 20.0-31.0 mmol/L Performed By: #### 4126100, 529497, 4789224, 161466, 442506, 145278 #### [facility] [address] [id number] Personnel Analyst: Eh Gould MD PREADMISSION TESTING PROGRESS NOTE Observed: 10/12/2023 6:34 AM Status: P Source: [facility] REPOSITORY PREADMISSION TESTING (PAT) I NSTRUCTION SHEET [ X] Bring your Surgery Guide [...] your surgeon. Simba TOLEDO, Dante Lanier on TRANSTHORACIC ECHO (TTE) LIMITED Observed: 08/28/2023 2:26 PM Status: F Source: [facility], [address] [place] [address] and TRANSTHORACIC ECHOCARDIOGRAM REPORT Patient Name: NEIL Aldana Physician: [id number] Jacobo French MD Study Date: 08/28/2023 Ordering Provider: [id number] LUCAS WILLIS MRN/PID: [id number] Fellow: Nurse: Date of 1945 Industrial Electrical Technician: Moncho Infante RDCS /Age: years Gender: M Additional Staff: Height: 175.26 cm Admit Date: 08/28/2023 Weight: 79.38 kg Admission Status: Inpatient - Routine BSA: 1.95 m2 [facility] Cath Location: Lab Blood Pressure: 137 /78 mmHg Study Type: TRANSTHORACIC ECHO (TTE) LIMITED Diagnosis/ICD: Unspecified atrial fibrillation-I48.91 Indication: POST LAAO CPT Code: Echo Limited-19035 Patient History: Pertinent History: HTN; HLD; paroxysmal [...] 72.4 g/m2 LV % FS 32.6 % [id number] Jacobo French MD Electronically signed on 08/28/2023 at 5:50:59 PM Final ACTIVATED CLOTTING TIME Collected: 01/2023 11:44 AM Status: F Source: [facility] TYPE CODE TESTS RESULT OUT OF RANGE REFERENCE UNITS LAB 3184-9(LOINC) Activated clotting time 271 High 89-169 sec Result Comment: Target ACT r gordy will vary based on the patient population, clinical status, and surgical intervention occurring. Performed By: #### 3184-9 ## ## JAVAD Stephenson ([id number]) [facility] ([facility]) [address] [place] [address] STRUCTURAL HEART PROCEDURE Observed: 01/2023 11:20 AM Status: F Source: [facility], [facility], [address] [place] [address] Cardiovascular Catheterization Report Patient Name: NEIL Matthews JERI Performing Physician: [id number] Cobb MD Study Date: 08/28/2023 Verifying Physician: Archie Cobb MD MRN/PID: [id number] Mandrel Cleaner/Co-scrub: Ordering Physician: [id number] COBB Date of 1945 Fellow: [id number] Adam Benedict /Age: years Gender: M Fellow: [...] ICE guidance, transseptal puncture was with a versacross (SocialSmack), accessing the left atrium. The transseptal tract was then dilated with a Watchman Double Curve access sheath and the ICE probe was advanced through the dilated tract into the left atrium. Next, a 6 Trin[place] angled pigtail was advanced through the delivery [...] in the LAAO registry. Hemo Personnel: + +---------+ Name Duty + +---------+ Ryan Cobb MD, MD 1 + +---------+ Hemodynamic Pressures: +----+ + +---------+ + + Site Date Time Phase Name Mean mmHg A-Wave mmHg V-Wave mmHg +----+ + +---------+ + + [place] 08/28/2023 11:57:27 AM Rest 5 12 9 +----+ + +---------+ + + [place] 08/28/2023 12:12:19 PM Rest 9 16 15 +----+ + +---------+ + + Complications: No in-lab complications observed. Cardiac Cath Post Procedure Notes: Post Procedure Diagnosis: Left atrial appendage closure. Blood Loss: Estimated blood loss during the procedure was 0 mls. Specimens Removed: Number of specimen(s) removed: none. ____ CONCLUSIONS: 1. Successful LAAC using WATCHMAN 27 mm FLX device. ICD 10 Codes: Paroxysmal atrial fibrillation-I48.0 CPT Codes: Perc left atrial appendage closure (LAAC)-73509 [id number] Ryan Cobb MD Performing Physician Final TRANSTHORACIC ECHO (TTE) LIMITED Observed: 08/28/2023 10:47 AM Status: F Source: [facility], [address] [place] [address] and TRANSTHORACIC ECHOCARDIOGRAM REPORT Patient Name: NEIL Aldana Physician: [id number] Kandis Chau MD Study Date: 08/28/2023 Ordering Provider: [id number] LUCAS WILLIS MRN/PID: [id number] Fellow: Nurse: Date of /Age: 1 1945 / 77 years Industrial Electrical Technician: Moncho Infante RDCS Gender: M Additional Staff: Height: 175.26 cm Admit Date: 08/28/2023 Weight: 79.38 kg Admission Status: Inpatient - Routine BSA: 1.95 m2 Department Location: [facility] Non Invasive Study Type: TRANSTHORACIC ECHO (TTE) LIMITED Diagnosis/ICD: Unspecified atrial fibrillation-I48.91 Indication: Pre-LAAO CPT Code: Echo Limited-65794 Patient History: Pertinent History: HTN; HLD: paroxysmal [...] VALVE/RVSP: Normal Ranges: IVC Diam: 1.50 cm [id number] Kandis Chau MD Electronically signed on 08/28/2023 at 3:17:19 PM Final ECG 12-LEAD Observed: 08/28/2023 10:40 AM Status: F Source: [facility] Ventricular Rate 63 Atrial Rate 63 P-R Interval 196 QRS Duration 86 Q-T Interval 402 QTC Calculation(Bazett) 411 P [place] 67 R [place] -1 T [place] 20 QRS Count 10 Q Onset 223 P Onset 125 P Offset 180 T Offset 424 QTC Fredericia 408 Diagnosis Normal sinus rhythm Inferior infarct Possible Anterior infarct Abnormal ECG Confirmed by Benny Obrien ([id number]) on 08/30/2023 3:59:[address] WATCHMAN FULL CONTRAST Observed: 01/2023 9:21 AM Status: F Source: [facility] Interpreted By: Johanne Lira, STUDY: CT WATCHMAN FULL CONTRAST; 08/28/2023 12:00 pm INDICATION: Signs/Symptoms:pre Watchman procedure SAME DAY CT. COMPARISON: None. ACCESSION NUMBER(S): [id number] ORDERING CLINICIAN: RYAN COBB TECHNIQUE: Using multi [...] thickening or calcifications. MITRAL VALVE: No valvular thickening/calcification. THORACIC AORTA: The thoracic aorta normal in [...] Purnima Lira 09/06/2023 9:28 AM Dictation workstation: [id number] CREATININE Collected: 3 10:32 AM Status: F Source: [facility] REPOSITORY TYPE CODE TESTS RESULT OUT OF RANGE REFERENCE UNITS LAB 2160-0(LOINC) Creatinine 1.23 0.50-1.30 mg/dL LAB 25183-0(LOINC) Glomerular filtration rate/1.73 sq M.predicted 61 >60 mL/min/1 .73m*2 Result Comment: Calculations of estimated GFR are performed using the 2020 CKD- EPI Study Refit equation without the race variable for the IDMS-Traceable creatinine methods. https://jasn.asnjournals.org/content/early//ASN.7067078093 Performed By: #### 2160-0 ## ## LINDA GALLAGHER ([id number]) [facility] ([facility]) [address] [place] [address] CBC W AUTO DIFF BLD Collected: 07/31/2023 3:[address] atus: F Source: [facility] REPOSITORY Order Comment: Specimen Type : BLOOD SPECIMEN Ordering Facility: External Submitter Address: , , TYPE CODE TESTS RESULT OUT OF RANGE REFERENCE UNITS LAB 6690-2([facility]) WBC # Bld Auto 3.40 Low 3.70-11.00 k/uL LAB 789-8([facility]) RBC # Bld Auto 2.79 Low 4.20-6.00 m/ uL LAB 718-7([facility]) Hgb Bld-mCnc 10.4 Low 13.0-17.0 g/dL LAB 4544-3([facility]) Hct VFr Bld Auto 31.3 Low 39.0-51.0 % LAB 787-2([facility]) MCV RBC Auto 112.2 High 80.0-100.0 fL LAB 785-6([facility]) MCH RBC Qn Auto 37.3 High 26.0-34.0 p g LAB 786-4([facility]) MCHC RBC Auto-mCnc 33.2 30.5-36.0 g/dL LAB 53547-9([facility]) RDW RBC-Rto 13.0 11.5-15.0 % LAB 777-3([facility]) Platelet # Bld Auto 166 150-400 k/uL LAB 83974-9([facility]) PMV Bld Auto 9.1 9.0-12.7 fL LAB 81882-4([facility]) CBC W Diff pnl,unspecified Bld Done LAB 770-8([facility]) Neutrophils/leuk NFr Bld Auto 58.2 % LAB 751-8([facility]) Neutrophils # Bld Auto 1.98 1.45-7.50 k/uL LAB 736-9([facility]) Lymphocytes/leuk NFr Bld Auto 31.2 % LAB 731-0([facility]) Lymphocytes # Bld Auto 1.06 1.00-4.00 k/uL LAB 5905-5([facility]) Monocytes/leuk NFr Bld Auto 3.8 % LAB 742-7([facility]) Monocytes # Bld Auto 0.13 <0.87 k/uL LAB 713-8([facility]) Eosinophil/leuk NFr Bld Auto 6.5 % LAB 711-2([facility]) Eosinophil # Bld Auto 0.22 <0.46 k/uL LAB 706-2([facility]) Basophils/leuk NFr Bld Auto 0.3 % LAB 704-7([facility]) Basophils # Bld Auto <0.03 <0.11 k/uL LAB 81406-6([facility]) Imm Granulocytes/veronica k NFr Bld Auto 0.0 % LAB 42925-6([facility]) Imm Granulocytes # Bld Auto <0.03 <0.10 k/uL LAB 12003-6([facility]) nRBC/100 WBC Bld-Rto 0.0 /100 WBC LAB 771-6([facility]) nRBC # Bld Auto <0.01 <0.01 k/u L LAB 87139-5([facility]) Platelet # Bld Est Adequate LAB RBCMORBEAKER1 RED CELL MORPH Reviewed: unremarkable LAB 39776-7([facility]) Differential method Bld Auto Performed By: #### 53528-6 # ### [facility] CLIA [id number] [address] [place] [address] [place] COMP METAB 2000 PNL SERPL Collected: 3:03 PM Status: F Source: [facility] REPOSITORY Order Comment: Specimen Type : BLOOD SPECIMEN Ordering Facility: External Submitter Address: , , TYPE CODE TESTS RESULT OUT OF RANGE REFERENCE UNITS LAB 2885-2([facility]) Prot SerPl-mCnc 7.7 6.3-8.0 g/dL LAB 1751-7([facility]) Albumin SerPl-mCnc 3.8 Low 3.9-4.9 g/dL LAB 97753-1([facility]) Calcium SerPl-mCnc 9.6 8.5-10.2 mg/dL LAB 1975-2([facility]) Bilirub SerPl-mCnc 0.4 0.2-1.3 mg/dL LAB 6768-6([facility]) ALP SerPl-cCnc 132 High 38-113 U/L LAB 1920-8([facility]) AST SerPl-cCnc 16 14-40 U/L LAB 1742-6([facility]) ALT SerPl-cCnc 9 Low 10-54 U/L LAB 2345-7([facility]) Glucose SerPl-mCnc 139 High 74-99 mg/dL Result Comment: The [place] Diabetes Association (ADA) provides guidance for cutoff [...] Standards of Medical Care in Diabetes 2016, [place] Diabetes Association. Diabetes Care. 2016.39(Suppl 1). LAB 3094-0(LOINC) BUN SerPl-mCnc 19 9-24 mg/ dL LAB 2160-0(LOINC) Creat SerPl-mCnc 1.23 High 0.73-1.22 mg/dL LAB 2951-2(LOINC) Sodium SerPl-sCnc 137 136-144 mmol/L LAB 2823-3(LOINC) Potassium SerPl-sCnc 4.0 3.7-5.1 mmol/L LAB 2075-0(LOINC) Chloride SerPl-sCnc 99 97-105 mmol/L LAB 2028-9(LOINC) CO2 SerPl-sCnc 23 22-30 mmo l/L LAB 75022-2(LOINC) Anion Gap SerPl-sCnc 15 9-18 mmol/L LAB 72623-7(LOINC) Creatinine + eGFR Pnl SerPlBld 61 >=60 mL/min/1 .73m??? Result Comment: Estimated Gl omerular Filtration Rate (eGFR) is calculated using the 2020 CKD-EPI creatinine equation. This equation utilizes serum creatinine, sex, and age as parameters. The creatinine assay has traceable calibration to isotope dilution-mass spectrometry. Refer to KDIGO guidelines for clinical interpretation. In patients with unstable renal function, e.g. those with acute kidney injury, the eGFR may not accurately reflect actual GFR. Performed By: #### 69721-2, 3024-7, 3016-3 #### [facility] CLIA [id number] [address] [place] [address] [place] T4 FREE SERPL-MCNC Collected: 3 3:03 PM Status: F Source: [facility] REPOSITORY Order Comment: Specimen Type : BLOOD SPECIMEN Ordering Facility: External Submitter Address: , , TYPE CODE TESTS RESULT OUT OF RANGE REFERENCE UNITS LAB 3024-7([facility]) T4 Free SerPl-mCnc 1.1 0.9-1.7 ng/dL Performed By: #### 07965-0, 3024-7, 3016-3 #### [facility] CLIA [id number] [address] [place] [address] TSH SERPL-ACNC Collected: 3 3:03 PM Status: F Source: [facility] REPOSITORY Order Comment: Specimen Type : BLOOD SPECIMEN Ordering Facility: External Submitter Address: , , TYPE CODE TESTS RESULT OUT OF RANGE REFERENCE UNITS LAB 3016-3([facility]) TSH SerPl-aCnc 4.190 0.270-4.200 mIU/L Performed By: #### 35455-1, 3024-7, 3016-3 #### [facility] CLIA [id number] [address] AMBULATORY VISIT SUMMARY Observed: 07/09 11:45 AM Status: F Source: [facility] REPOSITORY NEIL MARCELO :1945 Visit Date:07/09/2023 Ambulatory Visit Instructions Your Diagnosis Intertrigo BPH without urinary obstruction Urethral meatal stenosis Urge incontinence Proteinuria Your Care Team Attending Physician - Wong FERGUSON MD Primary Care Physician - SAM COONEY DO This Is Your Medications List tolterodine (tolterodine 2 mg Cap-ER) Contact prescribing physician if questions or concerns APAP/butalbital/caffeine (APAP/butalbital/caffeine 325 mg-50 mg-40 mg Tab) Misc Prescription [...] spironolactone (spironolactone 25 mg Tab) thyroid desiccated ([place] Thyroid) Procedures Performed Urethral dilatation (11/03/2022), TURP - Transurethral resection of prostate (08/31/2022), Cystoscopy (01/24/2022), Colonoscopy, Shoulder replacement. Discharge Vitals Heart Rate (Peripheral) 68 Respiratory Rate 16 Blood Pressure 132/78 Height 175 cm Height 69 in Weight 79.5 kg Weight 174.9 lb BMI 25.96 What to do next You Need to Schedule the Following Appointments Follow Up with MARTY BETANCOURT, JOSH Martin When: In 4 months Where: [facility] [address], [place] [address]- Medications What How Much When Instructions Changed tolterodine (tolterodine 2 mg Cap-ER) 1 Capsules By Mouth Every day Pickup at [facility]/pharmacy #[id number] Unchanged APAP/ butalbital/ caffeine (APAP/ butalbital/ caffeine [...] if questions or concerns Unchanged Misc Prescription ([facility] B-12 1,000 MCG TABLET) 0 Contact prescribing physician if questions or concerns Unchanged Non-Formulary Medication (Butapap cat 40mg PRN) Contact prescribing physician if questions or concerns Unchanged spironolactone (spironolactone 25 mg Tab) Contact prescribing physician if questions or concerns Unchanged thyroid desiccated ([place] Thyroid) By Mouth Every day Contact prescribing physician if questions or concerns Pharmacy Information [facility]pharm[facility] #[id number]: [address] [place], [place] [phone] Allergies No Known Allergies Problems Ongoing - [...] Follow these instructions at home: ? Take gezq-cuc-nsnywln and prescription medicines only as told by [...] effects from the medicine you are taking. ? Your urine becomes very dark or has a bad smell. ? Your lower abdomen becomes distended and you have trouble passing urine. Get help right away if: ? You have a fever or chills. ? You suddenly cannot urinate. ? You feel light-headed or very dizzy, or you faint. ? There are large amounts of blood or clots in your urine. ? Your urinary problems become hard to manage. ? You develop moderate to severe low back or flank pain. The flank is the side of your body between the ribs and the hip. These symptoms may be an emergency. Get help right away. Call 911. ? Do not wait to see if the symptoms will go away. ? Do not drive yourself to the hospital. Summary ? Benign prostatic hyperplasia (BPH) is an enlarged prostate that is caused by the normal aging process. It is not caused by cancer. ? An enlarged prostate can press on the urethra. This can make it hard to pass urine. ? This condition is more likely to develop in men older than 50 years. ? Get help right away if you suddenly cannot urinate. This information is not intended to replace advice given to you by your health care provider. Make sure you discuss any questions you have with your health care provider. Document Revised: 03/29/2022 Document Reviewed: 03/29/2022 [employer] Patient Education ? 2022 [employer] UROLOGY OFFICE/CLINIC NOTE Observed: 11:38 AM Status: F Source: [facility] REPOSITORY Chief Complaint 6m HPI Staff Pt is [...] Follow-up With When Contact Information MARTY BETANCOURT, Wong Frost, JOSH In 4 months [facility] [address], [place] [address]- Additional Instructions: Patient Education Benign Prostatic Hyperplasia [...] (08/31/2022), Cystoscopy (01/24/2022), Colonoscopy, Shoulder replacement. Medications APAP/butalbital/caffeine 325 mg-50 mg-40 mg Tab [place] Thyroid, Oral, Daily atorvastatin, Oral, Daily Butapap cat 40mg PRN CVS B-12 1,000 MCG TABLET, 0 doxazosin 4 mg Tab Eliquis 5 mg oral tablet FLUoxetine 20 mg Cap folic acid 1 mg Tab Glydo 2% topical gel with applicator 11 mL, 0.2 gm= 10 mL, Topical, As Directed, 6 refills, Not taking: No longer dilating losartan 100 mg Tab, Oral, Daily meclizine 25 mg Tab memantine 5 mg Tab spironolactone 25 mg Tab tolterodine 4 mg Cap-ER, 4 mg= 1 cap(s), Oral, Every other day, 6 refills Allergies No Known Allergies Social History Alcohol - Low Risk, 12/29/2019 Tobacco Never (less than 100 in lifetime) Tobacco Use:. Never Smokeless Tobacco Use:. Household tobacco concerns: No. Yes, 07/09/2023 Family History Arthritis: Father. Hypertension: Father. Immunizations [...] inactivated 08/08/2011 Recorded influenza, whole 07/14/2009 Recorded Result Comment: Electronical ly Signed By: Wong FERGUSON MD.br\Date and Time Signed: 07/09/23 11:43 EDT\.br\Electronically Co-Signed By: Valentine Fuentes.br\Date and Time Co-Signed: 07/09/23 11:39 EDT PATIENT EDUCATION Observed: 07/09/2023 11:37 AM Status: F Source: [facility] REPOSITORY Urology Benign Prostatic Hyperplasia Benign prostatic hyperplasia [...] Follow these instructions at home: ? Take oqoj-uvx-zuzleua and prescription medicines only as told by [...] effects from the medicine you are taking. ? Your urine becomes very dark or has a bad smell. ? Your lower abdomen becomes distended and you have trouble passing urine. Get help right away if: ? You have a fever or chills. ? You suddenly cannot urinate. ? You feel light-headed or very dizzy, or you faint. ? There are large amounts of blood or clots in your urine. ? Your urinary problems become hard to manage. ? You develop moderate to severe low back or flank pain. The flank is the side of your body between the ribs and the hip. These symptoms may be an emergency. Get help right away. Call 911. ? Do not wait to see if the symptoms will go away. ? Do not drive yourself to the hospital. Summary ? Benign prostatic hyperplasia (BPH) is an enlarged prostate that is caused by the normal aging process. It is not caused by cancer. ? An enlarged prostate can press on the urethra. This can make it hard to pass urine. ? This condition is more likely to develop in men older than 50 years. ? Get help right away if you suddenly cannot urinate. This information is not intended to replace advice given to you by your health care provider. Make sure you discuss any questions you have with your health care provider. Document Revised: 03/29/2022 Document Reviewed: 03/29/2022 [employer] Patient Education ? 2022 [employer]. OFFICE VISIT (CARDIOLOGY) Observed: 05/25 10:45 AM Status: [facility] Source: [facility] Diagnoses/Problems Assessed Overweight with body mass index (BMI) of 26 to 26.9 in adult (278.02,V85.22) (E66.3,Z68.26) Atrial fibrillation, currently in sinus rhythm (427.31) (Z86.79) Frequent falls (V15.88) (R29.6) Anemia (285.9) (D64.9) High risk medication use (V58.69) (Z79.899) Mixed hyperlipidemia (272.2) (E78.2) Orthostatic hypotension (458.0) (I95.1) Former smoker (V15.82) (Z87.891) Quit 1960's Anticoagulated (V58.61) (Z79.01) Orders Anemia Complete Blood Count; Status:Active; Requested for:74Jfn9811; Atrial fibrillation, currently in sinus rhythm, Frequent falls Cardiology - Valve and Structural Heart Program Referral Evaluation and Treatment Evaluate AND Treat Status: Hold For - Scheduling Requested for: 62Ixr3719 SocHx: Former smoker Tobacco Use Screening; Status:Complete; Done: 19Yli9066 Patient Instructions Please bring all medicines, vitamins, [...] up in 3 months Chief Complaint NEIL MARCELO is being seen for a 3 month follow-up of. History of Present Illness 77-year-old with history of atrial fibrillation, hypercoagulability related to atrial fibrillation, high KYJ6KQ0-BEGx score, most recently seen February 2023 and [...] due to atrial fibrillation, on anticoagulation. 10. WQN9CA9-HZRg at least 5. Has bled score 2 [...] adenoidectomy Current Meds Medication NameInstruction amLODIPine Besylate 5 MG Oral TabletTAKE 1 TABLET BY MOUTH EVERY DAY Amoxicillin 500 MG Oral Capsuletake 2 tablets 1hr prior to dental procedure, take 2 tablets 1 hr post detal procedure Atorvastatin Calcium 40 MG Oral TabletTAKE 1 TABLET AT BEDTIME. Ffgjkgzgig-DIEB-Zgetoska 50-325-40 MG Oral TabletTAKE 1 TABLET 3 TIMES DAILY NEEDED FOR PAIN. Doxazosin Mesylate 4 MG Oral TabletTAKE 1 TABLET DAILY. Eliquis 5 MG Oral TabletTake 1 tablet twice daily Finasteride 5 MG Oral TabletTAKE 1 TABLET DAILY DIRECTED. FLUoxetine HCl - 20 MG Oral TabletTAKE 1 TABLET DAILY. Folic Acid 1 MG Oral TabletTAKE 1 TABLET DAILY DIRECTED. Levothyroxine Sodium 125 MCG Oral CapsuleTAKE 1 CAPSULE BY MOUTH EVERY MORNING BEFORE BREAKFAST ON EMPTY STOMACH Loperamide HCl - 2 MG Oral TabletTAKE NEEDED. Losartan Potassium 100 MG Oral TabletTAKE 1 TABLET DAILY. Meclizine HCl - 25 MG Oral TabletTAKE 1 TABLET 3 TIMES DAILY NEEDED. Memantine HCl - 5 MG Oral TabletTAKE 1 TABLET ONCE DAILY. Metoprolol Succinate ER 25 MG Oral Tablet Extended Release 24 HourTAKE 1 TABLET DAILY. Spironolactone 25 MG Oral TabletTAKE 1 TABLET DAILY. Vitamin B-12 TABSTAKE 1 TABLET DAILY. Allergies Medication No Known Drug Allergies Recorded By: Arti Valenzuela; 06/06/2021 12:58:27 PM Social History Problems Caffeine use (V49.89) (Z78.9) Tea Former smoker (V15.82) (Z87.891) Quit No alcohol use No illicit drug use Review of Systems Constitutional: Denies: fever, chills, [...] ROS is negative, noncontributory, or as previously mentioned. Vitals Vital Signs Recorded: 52Tlb3415 11:27AMRecorded: 36Jnm0624 10:51AM Rkgaxxzg324, RUE, Pdqnnlgp343, RUE, Sitting Xgibhnqud76, RUE, Cfnjdisd12, RUE, Sitting Heart Rate66, R Popliteal Height5 ft 9 in Xvoupk436 lb BMI Uuivgkarzo52.29 kg/m2 BSA Calculated1.97 Tobacco Useb) No PHQ-2 Patient Declined/Screening not indicatedYes Falls Screening (Age 18+)b) One or more falls in the last year Physical Exam GENERAL: Well developed, well nourished, in no acute distress. CHEST: Symmetrical and non-tender. NEURO/PSYCH: Alert and oriented x 3; appropriate behavior and responses. NECK: Supple, no JVD, no bruit. LUNGS: Clear to auscultation bilaterally, normal respiratory effort. HEART: Rate and rhythm regular with no evident murmur; no gallop appreciated. There are no rubs, clicks or heaves. EXTREMITIES: Warm with good color, no clubbing or cyanosis. There is no edema noted. broken left shoulder, presents in office with left soft sling. PERIPHERAL VASCULAR: Femoral and Pedal pulses present and equally palpable; 2+ throughout. Signatures Electronically signed by : Za Hernández MD; Jun 13 2023 5:47PM EST (Author) UROLOGY OFFICE/CLINIC NOTE Observed: 07/2023 9:31 AM Status: F Source: [facility] REPOSITORY Chief Complaint 8 week F/U HPI Staff [...] When Contact Information CHARLOTTE BAKER PA-C, URL [address] [place] [address] Additional Instructions: keep appt w/ Patient Education Kegel Exercises Documentation recorded by the diamanteibamanda Fuentes accurately reflects the services(s) I performed and decisions made by me. Authenticated by Charlotte Baker PA-C on 04/03/2023 09:50:52. Valentine Paez, personally scribed for Charlotte Baker PA-C on [...] Shoulder replacement. Medications amLODIPine 5 mg Tab [place] Thyroid, Oral, Daily aspirin 81 mg oral [...] of Care Results Bilirubin Urine Dipstick: Negative (04/03/23 09:16:00) Blood Urine Dipstick: 1+ Small (04/03/23 09:16:00) Glucose Urine Dipstick: Negative (04/03/23 09:16:00) Ketones Urine Dipstick: Negative (04/03/23 09:16:00) Leukocytes Urine Dipstick: Negative (04/03/23 09:16:00) Nitrite Urine Dipstick: Negative (04/03/23 09:16:00) Protein Urine Dipstick: Negative (04/03/23 09:16:00) Specific [place] Urine Dipstick: 1.015 (04/03/23 09:16:00) Urine Appearance Urine Dipstick: Clear (04/03/23 09:16:00) Urine Color Urine Dipstick: Yellow (04/03/23 09:16:00) Urobilinogen Urine Dipstick: Normal 0.2-1 EU/dl (04/03/23 09:16:00) pH Urine Dipstick: 5.5 (04/03/23 09:16:00) Result Comment: Electronical ly Signed By: CHARLOTTE BAKER PA-C\.br\Date and Time Signed: 04/03/23 09:51 EDT\.br\Electronically Co-Signed By: Valentine Fuentes\.br\Date and Time Co-Signed: 04/03/23 09:31 EDT PATIENT EDUCATION Observed: 04/03/2023 9:30 AM Status: F Source: [facility] REPOSITORY Obstetrics and Gynecology Kegel Exercises Kegel exercises [...] provider. Document Revised: 01/19/2022 Document Reviewed: 01/19/2022 [employer] Patient Education ? 2022 [employer]. OFFICE VISIT (CARDIOLOGY) Observed: 01/2023 11:15 AM Status: [facility] Source: [facility] Diagnoses/Problems Assessed Anticoagulated (V58.61) (Z79.01) Atrial fibrillation, [...] Once daily Device check as directed per [facility] protocol Chief Complaint NEIL MARCELO is being seen for a 6 month follow-up of. History of Present Illness 77-year-old is accompanied by to the office. Last seen by me in September 2022 and soon thereafter seen by Louisa Arreguin NP. At last office visit blood [...] due to atrial fibrillation, on anticoagulation. 10. KCM2YE6-ICLi at least 5. Has bled score 2 [...] future 5. Stagger medications, take losartan in the morning, take metoprolol and doxazosin at bedtime. 6. We will down titrate medications further based on blood pressure readings and symptoms. 7. Follow-up in 2 to 3 months sooner if interval problems arise 1 Amended By: Za Hernández; Feb 26 2023 7:56 PM ESTSurgical History Problems History of Complete colonoscopy Managed By: Don BETANCOURT, Bg Frost (Gastroenterology) History of Loop recorder insertion History of Rotator cuff repair History of Shoulder surgery 2 seperate surgeries History of Tonsillectomy with adenoidectomy Current Meds Medication NameInstruction amLODIPine Besylate 10 MG Oral TabletTAKE 1 TABLET DAILY. Atorvastatin Calcium 40 MG Oral TabletTAKE 1 TABLET AT BEDTIME. Seujaxnuzf-UJYA-Efefocrt 50-325-40 MG Oral TabletTAKE 1 TABLET 3 TIMES DAILY NEEDED FOR PAIN. Cyclobenzaprine HCl - 10 MG Oral TabletTAKE 1 TABLET 3 TIMES DAILY NEEDED. Doxazosin Mesylate 4 MG Oral TabletTAKE 1 TABLET DAILY. Eliquis 5 MG Oral TabletTake 1 tablet twice daily Finasteride 5 MG Oral TabletTAKE 1 TABLET DAILY DIRECTED. FLUoxetine HCl - 20 MG Oral TabletTAKE 1 TABLET DAILY. Levothyroxine Sodium 125 MCG Oral CapsuleTAKE 1 CAPSULE BY MOUTH EVERY MORNING BEFORE BREAKFAST ON EMPTY STOMACH Loperamide HCl - 2 MG Oral TabletTAKE NEEDED. Losartan Potassium 100 MG Oral TabletTAKE 1 TABLET DAILY. Meclizine HCl - 25 MG Oral TabletTAKE 1 TABLET 3 TIMES DAILY NEEDED. Meloxicam 15 MG Oral TabletTAKE 1 TABLET DAILY. Metoprolol Succinate ER 50 MG Oral Tablet Extended Release 24 HourTAKE 1 TABLET EVERY DAY Spironolactone 25 MG Oral TabletTAKE 1 TABLET DAILY. Allergies Medication No Known Drug Allergies Recorded By: Arti Valenzuela; 06/06/2021 12:58:27 PM Social History Problems Caffeine use (V49.89) (Z78.9) Tea Former smoker (V15.82) (Z87.891) Quit No alcohol use No illicit drug use Review of Systems Constitutional: Denies: fever, chills, [...] ROS is negative, noncontributory, or as previously mentioned. Vitals Vital Signs Recorded: 26Feb2023 12:14PMRecorded: 26Feb2023 11:37AM Systolic Gcamubxe09, LUE, Standing Diastolic Yjwzbenx83, LUE, Standing Heart Rate Oiguhtyu95, L Radial Heart Rate56, L Radial Tnfooqsf23, LUE, Sitting Gabmcbkwx78, LUE, Sitting Height5 ft 9 in Xogmyp522 lb 9.6 oz BMI Rxmsewubyx20.93 kg/m2 BSA Calculated1.95 Tobacco Useb) No Falls Screening (Age 18+)b) One or more falls in the last year Physical Exam GENERAL: Well developed, well nourished, in no acute distress. CHEST: Symmetrical and non-tender. NEURO/PSYCH: Alert and oriented x 3; appropriate behavior and responses. NECK: Supple, no JVD, no bruit. LUNGS: Clear to auscultation bilaterally, normal respiratory effort. HEART: Rate and rhythm regular with no evident murmur; no gallop appreciated. There are no rubs, clicks or heaves. EXTREMITIES: Warm with good color, no clubbing or cyanosis. There is no edema noted. PERIPHERAL VASCULAR: Femoral and Pedal pulses present and equally palpable; 2+ throughout. Signatures Electronically signed by : Za Hernández MD; Feb 26 2023 7:57PM EST (Author) ALLERGIES DATE TYPE / CODE NAME / CODE REACTION SEVERITY SOURCE 04/07/2020 Drug Allergy/5771996 02(SNOMED CT) No Known Allergies/C702187245 (RXNORM) [facility] Class/445615899 (SNOMED CT) NO KNOWN ALLERGIES [facility] Ambulatory [facility] DR/205549503(SN OMED CT) No Known Allergies [facility] SYSTEMIC/496248 006(SNOMED CT) NO KNOWN ALLERGIES [facility] Drug Class/564417664 (SNOMED CT) NO KNOWN ALLERGIES [facility] ENCOUNTERS ADMIT/DISCHARGE ACCOUNT NUMBER ADMITTING ENCOUNTER CLASS LOCATION SOURCE 01/15/2024/01/15/20 24 [id number] Ambulatory Buildin 02 [facility] 12/28/2023 [id number] Ambulatory Building:Un k nown [facility] 12/28/2023/12/28/19 24 [id number] Ambulatory Building:[place] [id number] [facility] 12/03/2023/12/03/19 24 [id number] Ambulatory EU Maria DueButaylor ding:[place] : Exam 2 [facility] 11/20/2023/11/20/19 24 [id number] NICOLE SHAFFER DO Ambulatory [id number] g:PACURoom: BK51Tie: [address] [facility] 11/06/2023/11/06/19 24 [id number] NICOLE SHAFFER DO Ambulatory [id number] g:PREADM [facility] 10/22/2023/10/22/19 24 [id number] Ambulatory Building:[facility] [id number] Ambulatory 08/24/2023 [id number] RYAN COBB Inpatient Encounter Building:[facility] [id number] m: [facility] 08/22/2023/08/22/20 23 [id number] Ambulatory Building:[facility] GtMPSC [facility] 08/22/2023/08/22/20 23 [id number] Ambulatory Building:[place] [id number] 08/13/2023/08/13/20 23 [id number] Ambulatory Building:NOM S SWS POD [facility] 08/09/2023/08/09/20 23 [id number] Za Hernández [facility] 07/31/2023/07/31/20 23 [id number] [facility] 07/31/2023/07/31/20 23 [id number] Ambulatory Building:NOM S MAB [facility] 07/09/2023/07/09/20 23 [id number] Za [facility]dez [facility] 07/09/2023/07/09/20 23 [id number] Ambulatory EU BellevueBuil ding:EU [place] : Exam 1 [facility] 06/11/2023 [id number] Ambulatory [id number] g:Unknown [facility] 06/07/2023/06/07/20 23 [id number] [facility] 06/07/2023 [id number] Ambulatory 9090Building :Unknown [facility] 05/08/2023 [id number] Ambulatory 9090Building :Unknown [facility] 05/07/2023/05/07/20 23 [id number] Hernández, [facility] 04/03/2023/04/03/20 23 [id number] Ambulatory EU Bellevue[place]il ding:EU [place] : Exam 1 [facility] 02/26/2023 [id number] Ambulatory [id number] g:Unknown [facility] FUNCTIONAL STATUS No Functional Status Records Found EQUIPMENT No Equipment Records Found PAYERS ENCOUNTER GUARANTOR PAYER SUBSCRIBER SOURCE 01/15/2024 NEIL LEEOB: [id number] [place], [place] [address]Ltu: () Primary Insurance:[facility] SUPPLEMENT PLANPolicy Number: [id number] Date:2016-10-17 NEIL LEEOB: [id number] [place] [address] [facility] 01/15/2024 Secondary Insurance:MEDICARE [facility]ENTERPolicy Number: [id number] Date:2012-09-24 NEIL BECKHAMBDOB: [id number] [place] [address]Nza: (HP) [facility] 01/15/2024 Tertiary Insuran ce:[facility] MEDICARE ADVANTAGE PPOPolicy Number: [id number] Date:2023-09-24 NEIL Matthews PRANAVBDOB: [id number] [place] [address]Cgm: (HP) [facility] 12/28/2023 NEIL Matthews PRANAVBDOB: [place] [address]Dxi: (HP) Primary Insurance:[facility] PLANPolicy Number: [id number] Date:2016-10-17 NEIL Matthews PRANAVBDOB: [id number] [place] [address] [facility] 12/28/2023 Secondary Insurance:MEDICARE RAILROADPolicy Number: [id number] Date:2012-09-24 NEIL Matthews PRANAVBDOB: [id number] [place] [address]Ant: (HP) [facility] 12/28/2023 Tertiary Insuran ce:[facility] MEDICARE ADVANTAGE PPOPolicy Number: [id number] Date:2023-09-24 NEIL Matthews PRANAVBDOB: [id number] [place] [address]Yas: (HP) [facility] 12/28/2023 NEIL Matthews PRANAVBDOB: [place] [address]Ivz: (HP) Primary Insurance:[facility] MEDICAREPolicy Number: [id number] Date:2022-12-23 NEIL Matthews PRANAVBDOB: [id number] [place] [address]Vpi: (HP) [facility] 12/03/2023 NEIL LEEOB: FREDA LANGTel: ~[phone] (HP) Primary Insurance:[facility] CAREPolicy Number: [id number] Date:2022-09-24 NEIL DEL CID [facility] 12/03/2023 Secondary Insurance:MEDICAREPolic y Number: [id number] Date:8649-59-38[address] [place] [address]ZA: NEIL DEL CID [facility] 11/20/2023 NEIL LEEOB: [place], [place] [address]Exg: [phone] (HP) Primary Insurance:[facility]Poly Number: Effective Date:Plan Name:Bryan LEEOB: [id number] [place], [place] [address]Zwm: (HP) (WP) [facility] 11/06/2023 NEIL LEEOB: [place] [address]Rfu: ~[phone] (HP) [facility] Insurance[facility] Number: Effective Date:Plan Name:Bryan LEEOB: [id number] [place] [address]Cip: (HP) (WP) [facility] 10/22/2023 NEIL LEEOB: [place] [address]Nmj: (HP) Primary Insurance:[facility] MEDICAREPolicy Number: [id number] Date:2022-12-23 NEIL LEEOB: [id number] [place] [address]Xrr: (HP) [place] [address]/01/2023 NEIL Matthews PRANAVBDOB: [place] [address]Nsz: (HP) Primary Insurance:[employer] MEDICAREPolicy Number: [id number] Date:2022-12-23 NEIL Matthews ROSAOB: [id number] [place] [address]Kea: (HP) [facility] 08/22/2023 NEIL Matthews PRANAVBDOB: [place] [address]Aan: (HP) Primary Insurance:[employer] MEDICAREPolicy Number: [id number] Date:2022-12-23 ABDOULAYECassie LEEOB: [id number] [place] [address]Kkw: (HP) [facility] 08/22/2023 NEIL Matthews ROSAOB: [place] [address]Tla: (HP) Primary Insurance:UNITED HEALTHCARE MEDICAREPolicy Number: [id number] Date:2022-12-23 NEIL Matthews ROSAOB: [id number] [place] [address]Daj: (HP) [facility] 08/13/2023 ABDOULAYECassie LEEOB: [place] [address]Dmp: (HP) Primary Insurance:[facility] Number: [id number] Date:2022-09-24 ABDOULAYECassie LEEOB: [id number] [place] [address] [facility] 08/13/2023 Secondary Insurance:UNITED HEALTHCARE MEDICAREPolicy Number: [id number] Date:2022-12-23 NEIL RAMOSUBBDOB: [id number] [place] [address] [facility] 08/09/2023 Neil Matthews [id number] [place] [address]Sia: (HP) Primary Insurance:AAR Medicare Advantage PFFSPolicy Number: [id number] Date:7622-59-87CG BOx [address] [place] [address]BC: Neil Matthews PranavbDOB: [id number] [place] [address]Mjm: (HP) [facility] 08/09/2023 Secondary Insurance:Self PayPolicy Number: Effective Date:2023-04-09 [facility]/2023 Primary Insuranc e:[facility] AAR MEDICARE PPOPolicy Number: [id number] Date:0623-40-84Odbn Name:Bri NEIL Matthews ROSAOB: [id number] [place] [address] [facility] 07/31/2023 NEIL Matthews ROSAOB: [id number] [place] [address]Gcu: (HP) Primary Insurance:[facility] Number: [id number] Date:2022-09-24 NEIL Matthews ROSAOB: [id number] [place] [address] [facility] 07/09/2023 Neil Matthews [id number] [place] [address]Zsr: (HP) Primary Insurance:[facility] Medicare Advantage PFFSPolicy Number: [id number] Date:4115-50-12EE BOx [address] [place] [address]WI: AbdoulayeCassie LeeOB: [id number] [place] [address]Ejb: (HP) [facility] 07/09/2023 Secondary Insurance:Self PayPolicy Number: Effective Date:2023-04-09 NOT GIVENUNK [facility] 07/09/2023 NEIL BECKHAMTHAISOB: FREDA LANGTel: ~(4 19 (HP) [facility] Number: [id number] Date:2022-09-24 NEIL DEL CID [facility] 07/09/2023 Secondary Insurance:MEDICAREPolic y Number: [id number] Date:9797-71-49IE [address] [place] [address]DA: NEIL DEL CID [facility] 06/11/2023 NEIL RAMOSPEDROOB: [id number] [place] [address]Clz: (HP) [facility] Number: [id number] Date:Plan Name:Health NEIL BECKHAMTHAISOB: [id number] [place] [address]Kof: (HP) [facility] 06/07/2023 Neil [id number] [place] [address]Rzc: (HP) Primary Insurance:[employer] Medicare Advantage PFFSPolicy Number: [id number] Date:0813-62-29HI BOx [address] [place] [address]KA: Neil RamosPedroOB: [id number] [place] [address]Fpl: (HP) [facility] 06/07/2023 Secondary Insurance:Self PayPolicy Number: Effective Date:2023-04-09 [facility] 06/07/2023 NEIL RAMOSPEDROOB: [place] [address]Stk: (HP) Primary Insurance:[facility] Number: [id number] Date:Plan Name:[facility] NEIL RAMOSPEDROOB: [id number] [place] [address]Tvx: (HP) [facility] 05/08/2023 NEIL RAMOSPEDROOB: [place] [address]Yna: (HP) Primary Insurance:[facility] Number: [id number] Date:Plan Name:[facility] NEIL RAMOSPEDROOB: [id number] [place] [address]Gok: (HP) [facility] 05/07/2023 Neil Matthews [id number] [place] [address]Fke: (HP) Primary Insurance:[facility] Medicare Advantage PFFSPolicy Number: [id number] Date:3729-69-53OW [address] [address]WX: Neil Matthews RosaOB: [id number] [place] [address]Dlv: (HP) [facility] 05/07/2023 Secondary Insurance:Self PayPolicy Number: Effective Date:2023-04-04 [facility] NEIL Matthews ROSAOB: FREDA LANGTel: ~(4 [phone] (HP) Primary Insurance:[facility] CAREPolicy Number: [id number] Date:2022-09-24 NEIL DEL CID [facility] 04/03/2023 Secondary Insurance:MEDICAREPolic y Number: [id number] Date:[id number] [facility] [id number], [place] [address]WY: NEIL Matthews SHAYLAJamshid [facility] 02/26/2023 NEIL Matthews ROSAOB: [id number] [place], [place] [address]Eyi: () [facility]: [id number] Date:Plan Name:Health NEIL RAMOSPEDROOB: [id number] [place] [address]Okm: (HP) [facility] SOCIAL HISTORY No Social History Records Found FAMILY HISTORY No Family History Records Found No Status Records Found ADVANCE DIRECTIVES No Advanced Directives Records Found INFORMATION SOURCE DATE CREATED AUTHOR AUTHOR'S ORGANIZ ATION 02/03/2024 LEONIDAS
[2024-02-04 09:11] LABS: Anion Gap 15.1; BUN Creatinine Ratio 26.3; Carbon Dioxide 25.1 mmol/L (21.0-32.0); Chloride 101 mmol/L (98-107); Estimated GFR (African America >60 (>=60); Estimated GFR (Non-African Ame 51 (>=60); Glucose 97 mg/dL (74-106); Potassium 4.2 mmol/L (3.5-5.1); Sodium 137 mmol/L (136-145)
== END 2024-02-04 01:02 | disposition home or self-care (01) ==
LOC: LAB 01:01
PROVIDERS: PCP Family Medicine; Visit Provider Family Medicine
DX: N17.9 Acute kidney failure, unspecified (principal)
CPT/HCPCS: 36415; 80048

== ENCOUNTER 2024-02-23 08:55 | Observation (INO) | payer MEDICARE, SELFPAY ==
[2024-02-23] VITALS (35 sets, daily range): BP systolic 105–127; BP diastolic 55–84; PULSE 73–97; TEMP 36.4–36.8; O2SAT 90–97; BMI 27.3; BMI 24.5
--- NOTE | 2024-02-23 09:02 | ECG_ITS ---
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
--- OUTSIDE RECORDS SUMMARY | 2024-02-23 09:03 | XMS_ITS | CCD ---
Author Organization [facility] Care Team Providers Care Healthcare Representative Name Role Phone Eros Sam E Primary Care Provider [phone] Sam Cooney Primary Care Provider Erick Wise Attending Provider Ul Santos, Israr Attending Provider [phone] Eros Kleberg E Primary Care Provider [phone] CHIRRI, LESTER Admitting Unavailable MURRAY, LESTER Attending Unavailable BILLY VILLA Referring Unavailable CYNDY MADISON Consulting Unavailable BRISTOL, SAM E Primary Care Unavailable UL SANTOS, ISRAR Referring Unavailable BRISTOL, SAM E Primary Care Unavailable UL SANTOS, ISRAR Referring Unavailable BRISTOL, SAM E Primary Care Unavailable Sam Cooney Attending Provider Sam Cooney Primary Care Provider [phone] Erick Wise Attending Provider Sam Cooney Primary Care Provider Erick Wise Attending Provider [phone] Sam Cooney Attending Provider [phone] Harmon, Kleberg E Unavailable Unavailable Unavailable SAM COONEY Primary Care Physician [phone] Unavailable Unavailable DO Sma Cooney Primary Care Provider [phone] MD Za Hernández Attending Provider DR TRUNG RUGGIERO Consulting Unavailable DR TRUNG RUGGIERO Attending Unavailable FERGUSON ., DR NINO Admitting Unavailable BRISTOL, DR VARGAS Primary Care Unavailable DYAN, ROXANNE RIVAS Consulting Unavailable FERGUSON ., DR NINO Attending Unavailable FERGUSON ., DR NINO Admitting Unavailable FERGUSON ., DR NINO Consulting Unavailable BRISTOL, DR VARGAS Primary Care Unavailable RORY, CLARA Consulting Unavailable ARREGUIN, DR CONCHITA Frost Consulting Unavailable ARREGUIN, DR CONCHITA Frost Attending Unavailable BRISTOL, DR VARGAS Primary Care Unavailable ARREGUIN, DR CONCHITA Frost Admitting Unavailable EBONI PETE [...] Attending Unavailable BRISTOL, DR VARGAS Admitting Unavailable Harmon, DO Sam Primary Care Provider MD Za Hernández Attending Provider PURNIMA DAVIDSON JR Primary Care Unavailable Harmon, DO Vargas Primary Care Provider MD Za Hernández Attending Provider Sam Cooney DO Primary Care Prov ider Eros, Dr. Sam Harrington Primary Care Unavailable ZA HERNÁNDEZ Attending Unavailable ZA HERNÁNDEZ Referring Unavailable Eros, Dr. Sam Harrington Primary Care Unavailable ZA HERNÁNDEZ Attending Unavailable ZA HERNÁNDEZ Referring Unavailable Eros, Dr. Sam Harrington Primary Care Unavailable ZA HERNÁNDEZ Attending Unavailable ZA HERNÁNDEZ Referring Unavailable Eros, Dr. Sam Harrington Primary Care Unavailable Rodríguez, MsDeidre Hurt Attending Dima Arreguin, Ms. Loulou Hurt Referring Unava lab Eros, Dr. Sam Harrington Primary Care Unavailable Rodríguez, MsDeidre Hurt Attending Dima Arreguin, Ms. Loulou Hurt Referring Unavai lab Harmon, Dr. Sam Harrington Primary Care Unavailable Harmon, Dr. Sam Harrington Primary Care Unavailable Harmon, Dr. Sam Harrington Primary Care Unavailable Harmon, Dr. Sam Harrington Primary Care Unavailable Eros, DO Sam Primary Care Provider MD Za Hernández Attending Provider [phone] ZA HERNÁNDEZ Attending Unavailable SAM COONEY Primary Care Unav ailable Sam Cooney MD Primary Care Provider [phone] GUNNAR SHAFFER DO Attending Unavailabl e SHAFFER DO, GUNNAR Admitting Unavailabl e CAMILA ZEPEDA MD Referring Unavailabl e GUNNAR SHAFFER DO Attending Unavailabl e SHAFFER DOGUNNAR Admitting Unavailabl e CHARLOTTE BAKER Attending Unavailable Trung FERGUSON Attending Unavailable Trung FERGUSON Attending Unavailable Trung FERGUSON Attending Unavailable Trung FERGUSON Attending Unavailable CHARLOTTE BAKER Attending Unavailable RYAN COBB Referring Unavailable BRISTOLSAM Primary Care Unav ailable RYAN COBB Attending Unavailable BRISTOLSAM Primary Care Unav ailable BRISTOL, SAM E Referring Unavailable BRISTOL, SAM E Primary Care Unavailable ROXANNE GIVENS Attending Unavailable BRISTOL, SAM E Referring Unavailable BRISTOL, SAM E Primary Care Unavailable KYLEE ARREGUIN Attending Unavailable SHERLEY CHAVEZ Attending Unavailable GRACE VAZQUEZ Attending Unavailable BRISTOL, SAM HARRINGTON Primary Care Unav ailable RYAN COBB Admitting Unavailable RYAN COBB Attending Unavailable SAM COONEY Primary Care Unav ailable DO Sam Cooney Primary Care Provider DO Sam Cooney Referring Provider MD Bertha Cuevas Attending Provider Za Hernández Admitting Unavailable Za Hernández Attending Unavailable Eros Sam Primary Care Unavailable Za Hernández Attending Unavailable Sam Cooney Primary Care Unavailable Za Hernández Admitting Unavailable Bertha Cuevas Admitting Unavailabl e Bertha Cuevas Attending Unavailabl e Sam Cooney Primary Care Unavailable Sam Cooney Referring Unavailable Za Hernández Attending Unavailable Sam Cooney Primary Care Unavailable Za Hernández Admitting Unavailable Za Hernández Attending Unavailable Za Hernández Admitting Unavailable Sam Cooney Primary Care Unavailable Unavailable Unavailable Unavailable Medications [...] three times daily as needed for pain Lgkecfpbce-TIJI-Crwivbft 50-325-40 MG Or al Tablet TAKE 1 TABLET 3 TIMES DAILY NEEDED FOR PAIN. Quantity: 0 Refills: 0 Ordered: 18-Jul-2021 DO Start : 18-Jan-2021 Active Start: 05-19-2019 butalbital-sadie taminophen-caffeine (FIORICET, ESGIC) 50-325-40 MG per tablet Take by mouth 0 05/19/2019 Active Start: 05-19-2019 End: 02-21-2024 Phdufzhgli-Qqitdxdjfrckf-Dzx f Discontinued 1 TAB PO As Directed May 19, 2019 12:00am February 21, 2024 2:58pm [id number] 200 actuat albuterol 0.09 mg/actuat metered dose [...] Active 81 MG PO Every evening February 27, 2020 12:00am take 1 tablet by mouth once chris y Aspirin EC 81 MG Oral Tablet Delayed Release TAKE 1 TABLET DAILY DIRECTED. Quantity: 90 Refills: 3 Ordered: 15-Jun-2022 Edgar BETANCOURT, [facility] Active aspirin 325 mg / butalbital 50 mg / caffeine 40 mg oral capsule (3 sources) Platelet Aggregation Inhibitor, Barbiturate, Nonsteroidal Anti-inflammatory Drug, Central Nervous System Stimulant, Methylxanthine Start: 02-12-2009 take 1 capsule by mouth every four hours as needed vqvqcimpev-huoiixr-qtzzxjff (Fiorinal) 50-325-40 mg capsule Take 1 capsule by mouth every 4 hours if needed. 0 02/12/2009 Active Butapap cat 40mg PRN (14 sources) Start: 12-29-2019 Butapap cat 40mg PRN Butapap cat 40mg PRN Start Date: 12/29/19 Status: Ordered calcium chloride 0.0014 meq/ml / potassium chloride 0.004 meq/ml / sodium chloride 0.103 meq/ml / sodium lactate 0.028 meq/ml injectable solution (1 source) Start: 08-28-2023 lactated Ringer's infusion chlorhexidine gluconate 40 mg/ml medicated liquid [...] oral tablet (20 sources) alpha-Adrenergic Misael Start: 02-21-2024 take 4 mg by mouth once daily Doxazosin Active 4 MG PO Daily February 21, 2024 12:00am Start: 09-11-2022 take 1 tablet by renny th once daily doxazosin (Cardura) 4 mg tablet [...] (20 sources) 5-alpha Reductase Inhibitor Start: 0 take 5 mg by mouth once daily at bedtime Finasteride Active 5 MG PO Daily at bedtime February 27, 2020 12:00am FLUoxetine 40 mg oral capsule (20 sources) Serotonin Reuptake Inhibitor Start: 4 take 40 mg by mouth once daily Fluoxetine Active 40 MG PO Daily February 21, 2024 12:00am Start: 01-21-2021 take 1 capsule by mo [facility] once daily FLUoxetine (PROzac) 20 mg capsule Take 1 capsule (20 mg) by mouth once daily. 0 01/21/2021 Active Start: 05-19-2019 End: 02-27-2020 take 20 mg by mouth once daily Fluoxetine Discontinued 20 MG PO Daily May 19, 2019 12:00am February 27, 2020 4:19pm take 1 tablet by renny once daily FLUoxetine HCl - 20 MG Oral Tablet TAKE 1 TABLET DAILY. Quantity: 0 Refills: 0 Ordered: 26-Feb-2023 DO Active folic acid 1 mg oral tablet (11 sources) Start: 02-21-2024 take 1 mg by mouth once daily Folic Acid Active 1 MG PO Daily February 21, 2024 12:00am Start: 04-30-2023 take 1 tablet by renny once daily folic acid (Folvite) 1 mg [...] 0 Active take 1 capsule by mo ut once daily before breakfast Levothyroxine Sodium 125 [...] Start: 07-29-2021 take 1 tablet by renny th three times daily as needed Meclizine HCl - 25 MG Oral Tablet TAKE 1 TABLET 3 TIMES DAILY NEEDED. Quantity: 0 Refills: 0 Ordered: 30-Jul-2021 DO Start : 29-Jul-2021 Active take 1 tablet by renny th every six hours meclizine (Antivert) 25 MG tablet TAKE 1 TABLET BY MOUTH EVERY 6 HOURS NEEDD FOR 30 DAYS 0 Active memantine hydrochloride 10 mg oral tablet (11 sources) Z-meouts-L-aspartate Receptor Antagonist Start: 02-21-2024 take 10 mg by mouth twice daily Memantine Active 10 MG PO Twice daily February 21, 2024 12:00am Start: 08-06-2023 take 1 tablet by renny th once daily memantine (Namenda) 5 mg tablet [...] succinate 25 mg extended release oral tablet (12 sources) beta-Adrenergic Misael Start: 02-21-2024 take 25 mg by mouth once daily Metoprolol Succinate Active 25 MG PO Daily February 21, 2024 12:00am Start: 07-09-2023 take 1 tablet by renny th once daily metoprolol succinate XL (Toprol-XL) 25 [...] 08-29-2023 pantoprazole (ProtoNix) EC tablet 40 mg QUEtiapine 25 mg oral tablet (1 source) Atypical Antipsychotic Start: 02-21-2024 take 0.5 tablet by mouth twice daily Quetiapine (Seroquel) 25 mg tablet Active 25 MG PO Twice daily February 21, 2024 12:00am 1/2 TABLET TWICE DAILY spironolactone 25 mg oral tablet (20 sources) Aldosterone Antagonist Start: 02-21-2024 take 25 mg by mouth once daily Spironolactone Active 25 MG PO Daily February 21, 2024 12:00am Start: 08-14-2022 spironolactone 25 mg Tab Refills(s) 0 Start Date: 07/09/23 Status: Ordered tamsulosin hydrochloride 0.4 mg oral capsule (20 sources) alpha-Adrenergic Misael Start: 01-20-2020 take 0.4 mg by mouth twice daily Tamsulosin Active 0.4 MG PO Twice daily April 07, 2020 12:00am thyroid (residential) 90 mg oral tablet (20 sources) Start: 02-27-2020 take 1 tablet by mouth once daily in the morning Thyroid (Pork) (Tieton Thyroid) 90 mg tablet Active 90 MG PO Every morning February 27, 2020 12:00am Start: 12-29-2019 Tieton Thyroid Oral, Daily, Refills(s) 0 Start Date: 12/29/19 Status: Ordered Start: 05-19-2019 End: 02-27-2020 take 60 mg by mouth once daily Thyroid (Pork) Disconti nued 60 MG PO Daily May 19, 2019 12:00am February 27, 2020 4:18pm 24 hr tolterodine tartrate 2 mg extended release oral capsule (20 sources) Cholinergic Muscarinic Antagonist Start: 02-21-2024 take 2 mg by mouth once daily Tolterodine Active 2 MG PO Daily February 21, 2024 12:00am Start: 12-03-2023 tolterodine 2 mg Cap-ER 2 mg = 1 cap(s), Oral, As Directed, Take one cap in the morning and one at dinnertime., # 60 cap(s), Refills(s) 11, Pharmacy: [facility]/pharmacy #[id number], 175, cm, 12/03/23 15:27:00 EDT, Height/Length Dosing, 80, kg, 12/03/23 15:27:00 EDT, Weight Dosing Start Date: 12/03/23 Status: Ordered Start: 07-09-2023 take 1 capsule by [facility] every twenty-four hours in the morning tolterodine LA (Detrol LA) 2 MG 24 hr capsule Take 2 mg by mouth in the morning. 0 07/09/2023 Active Start: 01-23-2022 take 1 capsule by [facility] every other day tolterodine 4 mg Cap-ER 4 mg = 1 cap(s), Oral, Every other day, # 30 cap(s), Refills(s) 6, Pharmacy: [facility]/pharmacy #[id number], 175, cm, 01/23/22 13:07:00 EDT, Height/Length Dosing, 83, kg, 01/23/22 13:07:00 EDT, Weight Dosing Start Date: 01/23/22 Status: Ordered Start: 01-23-2022 take 1 capsule by [facility] once daily tolterodine 4 mg Cap-ER 4 mg = 1 cap(s), Oral, Daily, # 30 cap(s), Refills(s) 6, [id number], cm, 01/23/22 13:07:00 EDT, Height/Length Dosing, 83, kg, 01/23/22 13:07:00 EDT, Weight Dosing Start Date: 01/23/22 Status: Ordered Start: 09-27-2020 take 1 capsule by [facility] once daily tolterodine 2 mg Cap-ER 2 mg = 1 cap(s), Oral, Daily, # 30 cap(s), Refills(s) 11, [id number] 175, cm, 07/09/23 11:06:00 EDT, Height/Length Dosing, 79.5, kg, 07/09/23 11:06:00 EDT, Weight Dosing Start Date: 07/09/23 Status: Ordered traMADol hydrochloride 50 mg oral tablet (1 [...] 04/17/2023 Active vitamin b12 1 mg oral capsule (9 sources) Vitamin B12 Start: 02-21-2024 take 1000 ug by mouth once daily Cyanocobalamin (Vitamin B-12) Active 1000 MCG PO Daily February 21, 2024 12:00am Start: 07-09-2023 take 1 tablet by renny once daily cyanocobalamin (Vitamin B-12) 1,000 mcg [...] MD Start : 29-Apr-2020 Active Start: 02-27-2020 End: 02-21-2024 take 5 mg by mouth once daily in the morning Amlodipine Discontinued 5 MG PO Every morning February 27, 2020 12:00am February 21, 2024 2:58pm amoxicillin 500 mg oral capsule (7 sources) Penicillin-class Antibacterial Start: 02-05-2023 End: 08-28-2023 amoxicillin (Amoxil) 500 mg capsule Take 4 capsules (2,000 mg) by mouth. Prior to procedure 0 02/05/2023 08/28/2023 Discontinued (Entered in Error) amoxicillin (Kalpana xil) 500 mg capsule Take 1 capsule (500 mg) by mouth. Take 2 tablets 1 hr prior to dental procedure, take 2 tablets post 1 hr dental procedure 0 Active take 2 tablets by [facility] every hour, then take 2 tablets by mouth every hour Amoxicillin 500 MG Oral Capsule take 2 tablets 1hr prior to dental procedure, take 2 tablets 1 hr post detal procedure Quantity: 4 Refills: 0 Ordered: 11-Jun-2023 DO Active atorvastatin 40 mg oral tablet (20 sources) HMG-CoA Reductase Inhibitor Start: 12-29-2019 atorvastatin Oral, Daily, Refills(s) 0 Start Date: 12/29/19 Status: Ordered Start: 12-22-2019 End: 02-21-2024 take 40 mg by mouth once daily at bedtime Atorvastatin Discontinued 40 MG PO Daily at bedtime February 27, 2020 12:00am February 21, 2024 2:58pm ciprofloxacin 500 mg oral tablet (1 source) Quinolone Antimicrobial Start: 01-23-2022 take 1 tablet by mouth once daily Cipro 500 mg Tab 500 mg = 1 tab(s), Oral, Daily, Take 1 tablet the day before the procedure and 1 tablet after the procedure, # 2 tab(s), Refills(s) 0, Pharmacy: [facility]/pharmacy #[id number], 175, cm, 01/23/22 13:07:00 EDT, [...] Active dicyclomine hydrochloride 20 mg oral tablet (13 sources) Anticholinergic Start: 05-19-2019 End: 04-07-2020 take 20 mg by mouth twice daily Dicyclomine Discontinued 20 MG PO Twice daily May 19, 2019 12:00am April 07, 2020 11:47am doxycycline hyclate 100 mg oral capsule (3 [...] Apply as needed prior to self dilation, [facility]/pharmacy #[id number], 175, cm, 11/03/22 13:03:00 EST, Height/Length Dosing, 82.8, kg, 11/03/22 13:03:00 EST, Weight Dosing Start Date: 12/01/22 Stop Date: 12/01/22 Status: Ordered Start: 12-01-2022 End: 12-01-2022 Glydo 2% topical gel with ap plicator 11 mL 0.2 gm, 10 mL, Topical, As Directed, 30 mL, Refill(s) 6, Apply as needed prior to self dilation, [facility]/pharmacy #[id number], 175, cm, 11/03/22 13:03:00 EST, Height/Length Dosing, 82.8, kg, 11/03/22 13:03:00 EST, Weight Dosing Start Date: 12/01/22 Stop Date: 12/01/22 Status: Ordered Start: 12-01-2022 End: 12-01-2022 Glydo 2% topical gel with ap plicator 11 mL 0.2 gm, 10 mL, Topical, As Directed, 30 mL, Refill(s) 6, Apply as needed prior to self dilation, [facility]/pharmacy #[id number], 175, cm, 11/03/22 13:03:00 EST, Height/Length Dosing, 82.8, kg, 11/03/22 13:03:00 EST, Weight Dosing Start Date: 12/01/22 Stop Date: 12/01/22 Status: Ordered Start: 12-01-2022 End: 12-01-2022 Glydo 2% topical gel with ap plicator 11 mL 0.2 gm, 10 mL, Topical, As Directed, 30 mL, Refill(s) 6, Apply as needed prior to self dilation, [facility]/pharmacy #[id number], 175, cm, 11/03/22 13:03:00 EST, [...] Start : 20-Jun-2023 Active Start: 05-19-2019 take 100 mg by mouth once daily in the morning Losartan Active 100 MG PO Every morning May 19, 2019 12:00am take 0.5 tablet by m outh once daily losartan (Cozaar) 100 mg tablet Take 0.5 tablets (50 mg) by mouth once daily. 0 Active meloxicam 15 mg oral tablet (20 sources) Nonsteroidal Anti-inflammatory Drug Start: 05-19-2019 End: 02-27-2020 take 15 mg by mouth once daily Meloxicam Discontinued 15 MG PO Daily May 19, 2019 12:00am February 27, 2020 4:19pm Vitamin B-12 TABS (2 sources) Vitamin B-12 [...] 2 12-29-2019 Chronic Deficiency and other anemia (1 source) Other pancytopenia; Translations: [Other pancytopenia] Onset: 4 Chronic Deficiency and other anemia (2 sources) [...] medications] Episodic Other and unspecified benign neoplasm (13 sources) History of polyp of colon; Translations: [...] W/AND (SUSP) EXPOS COVID-19] Onset: 2 Unclassified (2 sources) laao Onset: 3 Unclassified (1 source) Consult Onset: 4 Unclassified (1 source) Encounter for adjustment and management of other cardiac device; Translations: [Encounter for adjustment and management of other cardiac device] Onset: 3 Past or Other Problems Problem Classification Problem [...] Onset: 06-15-2022 11-06-2022 Other aftercare (1 source) retirement (current) use of anticoagulants; 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 COMPARISON: CT dated 08/28/2023 ACCESSION NUMBER(S): [id number] ORDERING CLINICIAN: RYAN COBB TECHNIQUE: Using multi [...] Fleischner Society 2017, Radiology. 2017 Nestor;284 (1):228-243.) FLEISCHNER.ACR.IF.1 MACRO: None Signed by: Carlitos Alonso/5/2024 11:32 AM Dictation workstation: [id number] [facility] No Panel Informationon 12-27 1. Status post [...] Fleischner Society 2017, Radiology. 2017 Nestor;284 (1):228-243.) FLEISCHNER.ACR.IF.1 MACRO: None Signed by: Carlitos Aguilera 12/28/2023 11:32 AM Dictation workstation: [id number] Interpreted By: Carlitos Aguilera, STUDY: CT WATCHMAN FULL CONTRAST; 12/28/2023 10:40 am INDICATION: Signs/Symptoms:A-fib, Post-Watchman. COMPARISON: CT dated 08/28/2023 ACCESSION NUMBER(S): [id number] ORDERING CLINICIAN: RYAN COBB TECHNIQUE: Using multi [...] Post-Watchman. COMPARISON: CT dated 08/28/2023 ACCESSION NUMBER(S): [id number] ORDERING CLINICIAN: RYAN COBB TECHNIQUE: Using multi [...] Carlitos Aguilera 12/28/2023 11:32 AM Dictation workstation: [id number] [facility] Work Phone: Radiology Study observation (narrative) [facility] Work Phone: No Panel InformationOrdered By: Carlitos Aguilera on 12-28-2023 [facility] Work Phone: Ambulatory Visit Summaryon 0 12-03-2023 Ambulatory Visit Summary NEIL WILCOX :1945 Visit Date:12/03/2023 Ambulatory Visit Instructions Your [...] spironolactone (spironolactone 25 mg Tab) thyroid desiccated (Tieton Thyroid) Procedures Performed Urethral dilatation (11/03/2022), TURP [...] Where: [facility] [address], [place] [address] [id number] Medications What How Much When Instructions Changed tolterodine (tolterodine 2 mg Cap-ER) 1 Capsules By Mouth As Directed Take one cap in the morning and one at dinnertime. Pickup at [facility]/pharmacy #[id number] Unchanged APAP/ butalbital/ caffeine (APAP/ butalbital/ caffeine [...] if questions or concerns Unchanged Misc Prescription ([facility] B-12 1,000 MCG TABLET) 0 Contact prescribing physician if questions or concerns Unchanged Non-Formulary Medication (Butapap cat 40mg PRN) Contact prescribing physician if questions or concerns Unchanged spironolactone (spironolactone 25 mg Tab) Contact prescribing physician if questions or concerns Unchanged thyroid desiccated (Tieton Thyroid) By Mouth Every day Contact prescribing physician if questions or concerns Pharmacy Information [facility]/pharmacy #[id number]: [address], [place] [id number] [phone] Allergies No Known Allergies Problems Ongoing - Any problem that you are currently receiving treatment for. BPH with urinary obstruction Enuresis Hesitancy Hypertension Incomplete bladder emptying Intertrigo mild WI (myocardial infarction) Nocturia Protein in urine Proteinuria [...] especially fr (more content not included)... [facility] Patient Educationon 12-03-19 Patient Education Obstetrics and [...] health care provider. General instructions ? Take kxoj-bvx-xqvkllr and prescription medicines only as told by [...] monitor yo (more content not included)... [facility] Urology Office/Clinic Noteon 12-03-2023 Urology Office/Clinic Note [...] morning and night). New rx sent to [facility]. -Double void maneuvers 2. BPH with urinary [...] [facility] [address], [place] [address] [id number] Additional Instructions: 6 mos (increase med dosage) [...] Hesitancy Hypertension Incomplete bladder emptying Intertrigo mild WI (myocardial infarction) Nocturia Protein in urine Proteinuria Smoker Urethral meatal stenosis Urge incontinence Urinary incontinence without sensory awareness Urinary retention Historical No qualifying data Procedure/Surgical History Urethral dilatation (11/03/2022), TURP - Transurethral resection of prostate (08/31/2022), Cystoscopy (01/24/2022), Colonoscopy, Shoulder replacement. Medications APAP/butalbital/caffei ne 325 mg-50 mg-40 mg Tab Tieton Thyroid, Oral, Daily atorvastatin, Oral, Daily Butapap [...] lifetime) Tobac (more content not included)... [facility] Comment on above: Result Comment: Elec tronically Signed By: Trung FERGUSON MD\.br\Date and Time Signed: 12/03/23 16:17 EDT\.br\Electronically Co-Signed By: Marcela Lake\.br\Date and Time Co-Signed: 12/03/23 16:16 EDT Radio Program Director Details- Texton 11-20-2023 Radio Program Director Details- Text Radio Program Director Details Entered On: 11/20/2023 9:57 EST Performed On: 11/20/2023 9:56 EST by Sahra Lizarraga RN Radio Program Director Details Transport Mode Order Detail EV : [...] : No Pacemaker Order Detail : 0 Radio Program Director Details Review Status : Initial Review Nurse Collects Blood Specimens : No Sahra Lizarraga RN - 11/20/2023 9:56 EST Normal [facility] Utilization Review Noteon Utilization Review Note EXT REC DAY 0. C ASE CANCELLED DUE TO LOW H&H. Normal [facility] Utilization Review Noteon Utilization Review Note Reg as EXT REC, no documents. NOT IPO Still no information from [facility] yet. Still no information from [facility] yet. Approved for outpatient per [facility]. [facility] HEMOon 11-16-2023 Nucleated RBC 0 /100WBC Normal [facility] Comment on above: Performed By: #### 1 [id number], [id number] ####[facility] [id number] [place] [address] Medical Director: Eh Gould MD MAN DIFFon 11-16-[address] 0.12 x1000 Normal 0.00-0.70 [facility] Comment on above: Performed By: #### 1 , [id number] ####[facility] [id number] [place] [address] Medical Director: Eh Gould MD Absolute Eos Ct 0.07 x1000 Normal 0.00-0.50 [facility] Comment on above: Performed By: #### 1 , [id number] ####[facility] [id number] [place] [address] Medical Director: Eh Gould MD Absolute Lymph Ct 1.10 x1000 Low 1.20-4.80 [facility] Comment on above: Performed By: #### 1 , [id number] ####[facility] [id number] [place] [address] Medical Director: Eh Gould MD Absolute Neutrophil Ct 1.22 x1000 Low 1.40-8.80 [facility] Comment on above: Performed By: #### 1 , [id number] ####[facility] [id number] [place] [address] Medical Director: Eh Gould MD Absolute Seg Ct 1.10 x1000 Low 1.40-8.80 [facility] Comment on above: Performed By: #### 1 , [id number] ####[facility] [id number] [place] [address] Medical Director: Eh Gould MD Band form neutrophils/100 WBC (Bld) 5 % Normal [facility] Comment on above: Performed By: #### 1 98936, 720461 ####[facility] Vhlucvsc43209 [place] [address] Medical Director: Eh Gould MD Eosinophils/100 WBC (Bld) 3 % Normal [facility] Comment on above: Performed By: #### 1 52518, 388602 ####[facility] Nomnzljx39203 [place] [address] Medical Director: Eh Gould MD Lymphocytes/100 WBC (Bld) 46 % Normal [facility] Comment on above: Performed By: #### 1 , 517557 ####[facility] [address] [place] [address] Medical Director: Eh Gould MD Macrocytosis Moderate Normal [facility] Comment on above: Performed By: #### 1 , 173664 ####[facility] Hdtkiapw50555 [place] [address] Medical Director: Eh Gould MD Segmented neutrophils/100 WBC (Bld) 46 % Normal [facility] Comment on above: Performed By: #### 1 83096, 142924 ####[facility] [address] [place] [address] Medical Director: Eh oGuld MD ABORHon 11-15-2023 ABOR Interpretation Positive Normal [facility] Comment on above: Performed By: #### C D:[id number], CD:[id number] #### [facility] Services [address] [place] [address] Junior Graphic Designer: Eh Gould MD Patient History Check Previous Hx Normal So [facility] Comment on above: Performed By: #### C D:[id number], CD:[id number] #### [facility] Services [address] [place] [address] Junior Graphic Designer: Eh Gould MD VS 0.8% a cells 0 Normal [facility] Comment on above: Performed By: #### C D:[id number], CD:[id number] #### [facility] Services [address] [place] [address] Junior Graphic Designer: Eh Gould MD VS 0.8% b cells 3+ Normal [facility] Comment on above: Performed By: #### C D:[id number], CD:[id number] #### [facility] Services [address] [place] [address] Junior Graphic Designer: Eh Gould MD VS Anti-A Unit 4+ [facility] Comment on above: Performed By: #### C D:[id number], CD:[id number] #### [facility] Services [address] [place] [address] Junior Graphic Designer: Eh Gould MD VS Anti-B Unit 0 Normal [facility] Comment on above: Performed By: #### C D:[id number], CD:[id number] #### [facility] Services [address] [place] [address] Junior Graphic Designer: Eh Gould MD VS Anti-D Unit 4+ Normal [facility] Comment on above: Performed By: #### C D:[id number], CD:[id number] #### [facility] Services [address] [place] [address] Junior Graphic Designer: Eh Gould MD ABSCon 11-15-2023 ABSC Final Interp Negative Normal [facility] Comment on above: Performed By: #### C D:[id number], CD:[id number] #### [facility] Services [address] [place] [address] Junior Graphic Designer: Eh Gould MD Pt Hx check done? Yes Normal [facility] Comment on above: Performed By: #### C D:[id number], CD:[id number] #### [facility] Services [address] [place] [address] Junior Graphic Designer: Eh Gould MD VS SCI Gel 0 Normal [facility] Comment on above: Performed By: #### C D:[id number], CD:[id number] #### [facility] Services [address] [place] [address] Junior Graphic Designer: Eh Gould MD VS SCII Gel 0 [facility] Comment on above: Performed By: #### C D:[id number], CD:[id number] #### [facility] Services [address] [place] [address] Junior Graphic Designer: Eh Gould MD DVT/VTE Risk Factor-Texton 0 [...] Price RN - 11/15/2023 13:48 EST Normal [facility] HEMOon 11-15-2023 DIFF? Yes Normal [facility] Comment on above: Performed By: #### 1 33144, 402341 ####[facility] [address] [place] 7253430 Medical Director: Eh Gould MD DxH Actions See Notes Abnormal [facility] Comment on above: Result Comment: Scan for RBC Morphology Scan Slide. Perform manual diff if needed. SNV Performed By: #### 1 94813, 286630 ####[facility] Rqxwpayz20831 [place], [place] [id number]) [phone] Director: Eh Gould MD Erythrocyte distribution width (RBC) [Ratio] 14.5 % Normal 11.5-14.5 [facility] Comment on above: Performed By: #### 1 15732, 349191 ####[facility] Wurbawvb44723 [place] [id number]) [phone] Director: Eh Gould MD Hematocrit (Bld) [Volume fraction] 25.3 % Low 41.0-52.0 [facility] Comment on above: Performed By: #### 1 , 807866 ####[facility] Olebcdbt89484 [place] [address] Medical Director: Eh Gould MD Hemoglobin (Bld) [Mass/Vol] 8.7 g/dL Low 13.5-17.5 [facility] Comment on above: Performed By: #### 1 , 939774 ####[facility] [address] [place] [id number]) [phone] Director: Eh Gould MD Instr WBC 2.4 Normal [facility] Comment on above: Performed By: #### 1 , 017819 ####[facility] Ycgvwqya65086 [place], [place] [id number]) [phone] Director: Eh Gould MD MCH (RBC) [Entitic mass] 38.3 pg High 27.0-34.0 [facility] Comment on above: Performed By: #### 1 , 333793 ####[facility] Fscgttgn55049 [place], [place] [id number]) [phone] Director: Eh Gould MD MCHC (RBC) [Mass/Vol] 34.6 g/dL Normal 32.0-37.0 [facility] Comment on above: Performed By: #### 1 , 391507 ####[facility] Aulhntgd75974 [place] [address] Medical Director: Eh Gould MD MCV (RBC) [Entitic vol] 110.6 fL High 80.0-100.0 [facility] Comment on above: Performed By: #### 1 12749, 946201 ####[facility] Utcksdzp76629 [place] [address] Medical Director: Eh Gould MD Platelet 142 x10 Low 150-450 [facility] Comment on above: Performed By: #### 1 , 456386 ####[facility] Bzneepce91127 [place] [address] Medical Director: Eh Gould MD Platelet mean volume (Bld) [Entitic vol] 6.4 fL Low 7.4-10.4 [facility] Comment on above: Performed By: #### 1 , 369368 ####[facility] [address] [place] [address] Medical Director: Eh Gould MD RBC 2.29 x10 Low 4.70-6.10 [facility] Comment on above: Result Comment: Note : RBC morphology is normal unless otherwise stated. Evaluation performed only if differential is requested. Performed By: #### 1 94002, 757241 ####[facility] Cyrouwlc43279 [place] [address] Medical Director: Eh Gould MD WBC 2.4 x10 Low 4.5-11.0 [facility] Comment on above: Performed By: #### 1 89026, 506472 ####[facility] Lbktawvz86364 [place], [place] [id number]) [phone] Director: Eh Gould MD Preadmission Testing Progres [...] No Orders received during the phone conversation. [facility] Preadmission Testing Progress Note PREADMISSION TESTING (PAT) [...] visit, must be reported to your surgeon. [facility] UAon 11-15-2023 Appearance, U Clear Normal [facility] Comment on above: Performed By: #### 1 08934 #### [facility] Services [address] [place], [place] [address] Junior Graphic Designer: Eh Gould MD Bilirubin, U Negative Normal Negative [facility] Comment on above: Performed By: #### 1 27069 #### [facility] Services [address] [place] [address] Junior Graphic Designer: Eh Gould MD Blood, U Small Abnormal Negative [facility] Comment on above: Performed By: #### 1 15712 #### [facility] Services [address] [place] [address] Junior Graphic Designer: Eh Gould MD Color, U Yellow Normal [facility] Comment on above: Performed By: #### 1 91603 #### [facility] Services [address] [place] [address] Junior Graphic Designer: Eh Gould MD Glucose Qual, U Negative Normal Negative [facility] Comment on above: Performed By: #### 1 31341 #### [facility] Services [address] [place] [address] Junior Graphic Designer: Eh Gould MD Ketones, U Negative Normal Negative [facility] Comment on above: Performed By: #### 1 67071 #### [facility] Services [address] [place] [address] 24[address] Junior Graphic Designer: Eh Gould MD Leukocyte Esterase, U Negative Normal Negative [facility] Comment on above: Performed By: #### 1 71675 #### [facility] Services [address] [place], [place] [address] Junior Graphic Designer: Eh Gould MD Mucous, U Occasional Normal [facility] Comment on above: Performed By: #### 1 26903 #### [facility] Services [address] [place], [place] [address] Junior Graphic Designer: Eh Gould MD Nitrite, U Negative Normal Negative [facility] Comment on above: Performed By: #### 1 38461 #### [facility] Services [address] [place], [place] [address] Junior Graphic Designer: Eh Gould MD pH, U 5.0 Normal 4.5-8.0 [facility] Comment on above: Performed By: #### 1 08192 #### [facility] Services [address] [place] [address] 7[address] Junior Graphic Designer: Eh Gould MD Protein, U Negative Normal Negative [facility] Comment on above: Performed By: #### 1 60907 #### [facility] Services [address] [place] [address] 395[address] Junior Graphic Designer: Eh Gould MD RBC/HPF, U <1 Normal 0-3 [facility] Comment on above: Performed By: #### 1 78891 #### [facility] Services [address] [place], [place] [address] Junior Graphic Designer: Eh Gould MD Specific [place], U 1.014 Normal 1.001-1.035 [facility] Comment on above: Performed By: #### 1 00054 #### [facility] Services [address] [place], [place] [address] Junior Graphic Designer: Eh Gould MD Squamous Epithelial Cells, U <1 Normal [facility] Comment on above: Performed By: #### 1 43444 #### [facility] Services [address] [place], [place] [address] Junior Graphic Designer: Eh Gould MD U MICRO Indicated Normal [facility] Comment on above: Performed By: #### 1 44659 #### [facility] Services [address] [place], [place] [address] Junior Graphic Designer: Eh Gould MD Urobilinogen Qual, U <2.0 mg/dl Normal <2.0 mg/dl [facility] Comment on above: Result Comment: EU/d l and mg/dl are equivalent units. Performed By: #### 1 97950 #### [facility] Services [address] [place] [address] Junior Graphic Designer: Eh Gould MD WBC/HPF, U 2 #/HPF Normal 0-5 [facility] Comment on above: Performed By: #### 1 01770 #### [facility] Services [address] [place] [address] Junior Graphic Designer: Eh Gould MD Preadmission Testing Progres s Noteon 11-14-2023 Preadmission Testing Progress Note Registration called P.A.T.,stating the pt. may not show and reschedule. Pt did not show for appointment. Called Dr. Shaffer's office. Spoke to Alexandra, she stated the CT foe watchman check is scheduled for the 20 of November and is needed for the clearance to be completed. Normal [facility] ABORHon 10-15-2023 ABORH CK Interp Positive Normal [facility] Comment on above: Performed By: #### C D:[id number], CD:[id number] #### [facility] Services [address] [place] [address] Junior Graphic Designer: Eh Gould MD Anti-A recheck 4+ Normal [facility] Comment on above: Performed By: #### C D:[id number], CD:[id number] #### [facility] Services [address] [place] [address] Junior Graphic Designer: Eh Gould MD Anti-B recheck 0 [facility] Comment on above: Performed By: #### C D:[id number], CD:[id number] #### [facility] Services [address] [place] [address] 08567 Junior Graphic Designer: Eh Gould MD Anti-D recheck 3+ [facility] Comment on above: Performed By: #### C D:[id number], CD:[id number] #### [facility] Services [address] [place] [address] 11921 Junior Graphic Designer: Eh Gould MD Pathologist Reviewon 024 Diff [...] ruled out. Clinical correlation is recommended. Normal [facility] Comment on above: Order Comment: Added on by Discern Expert Rule. Result Comment: CAMILA ZEPEDA (Electronic Signature) Date Verified 10/15/23 Performed By: #### 9 500200, 505283, 5815356, 950698, 450758, 162365 ####[facility] [address] [place] [address] Medical Director: Eh Gould MD Preadmission Testing [...] who stated they are in route to PAT appt and delayed due to weather conditions. Patient [...] voice mail all available numbers for office, storage center manager and PA. Left messages on voice mail [...] patient and and notify surgery scheduling. Normal [facility] Utilization Review Noteon Utilization Review Note Reg as PRE ADMIT , no documents, NOT IPO. I will send to , needs changed to EXT. email sent to [facility] and surgery scheduling to change this to ext rec Surgery schedule updated to Ext Rec [facility] still has not updated registration, email was already sent to them by . Same as above. 10/16/23 LEFT REVERESE TOTAL SHOULDER REPLACEMENT CANCELED PER [facility]. CANCELLED. Normal [facility] ABORHon 10-12-2023 ABORH Interpretation Positive Normal [facility] Comment on above: Performed By: #### C D:[id number], CD:[id number] #### [facility] Services [address] [place] [address] Junior Graphic Designer: Eh Gould MD Patient History Check No Previous Hx Normal [facility] Comment on above: Result Comment: 09/24 10:30 [id number] ABO Recheck to be ordered on admit. Surgery Date: 10/16/23 Performed By: #### C D:[id number], CD:[id number] #### [facility] Services [address] [place] [address] Junior Graphic Designer: Eh Gould MD VS 0.8% a cells 0 Normal [facility] Comment on above: Performed By: #### C D:[id number], CD:[id number] #### [facility] Services [address] [place] [address] 367[address] Junior Graphic Designer: Eh Gould MD VS 0.8% b cells 3+ Normal [facility] Comment on above: Performed By: #### C D:[id number], CD:[id number] #### [facility] Services [address] [place] [address] Junior Graphic Designer: Eh Gould MD VS Anti-A Unit 4+ [facility] Comment on above: Performed By: #### C D:[id number], CD:[id number] #### [facility] Services [address] [place] [address] 49[address] Junior Graphic Designer: Eh Gould MD VS Anti-B Unit 0 Normal [facility] Comment on above: Performed By: #### C D:[id number], CD:[id number] #### [facility] Services [address] [place] [address] Junior Graphic Designer: Eh Gould MD VS Anti-D Unit 4+ Normal [facility] Comment on above: Performed By: #### C D:[id number], CD:[id number] #### [facility] Services [address] [place] [address] Junior Graphic Designer: Eh Gould MD ABSCon 10-12-2023 ABSC Final Interp Negative Normal [facility] Comment on above: Performed By: #### C D:[id number], CD:[id number] ####[facility] [address] [place] [address] Medical Director: Eh Gould MD Pt Hx check done? Yes Normal [facility] Comment on above: Performed By: #### C D:[id number], CD:[id number] ####[facility] [address]jw[address] [place] [address] Medical Director: Eh Gould MD VS SCI Gel 0 Normal [facility] Comment on above: Performed By: #### C D:[id number], CD:[id number] ####[facility] Umfkouxl30110 [place] [address] Medical Director: Eh Gould MD VS SCII Gel 0 [facility] Comment on above: Performed By: #### C D:[id number], CD:[id number] ####[facility] Gmdlbdeq69287 [place] [address] Medical Director: Eh Gould MD APTTon 10-12-2023 aPTT Coag (Bld) [Time] 29.5 s Normal 27.0-38.0 So [facility] Comment on above: Result Comment: APTT Interpretation: This test has not been validated to monitor heparin therapy. APTT test is used as an initial test for suspected bleeding disorder. Anti-Xa UFH test is used to monitor heparin therapy. Performed By: #### 9 322045, 326543, 5476962, 620116, 146761, 002459 ####[facility] N[address] [place], [place] [address]) [phone] Director: Eh Gould MD AUTO DIFFon 10-12-2023 Baso Count 0.02 x1000 Normal 0.00-0.20 [facility] Comment on above: Performed By: #### 9 087253, 057554, 8626346, 553513, 312229, 268530 ####[facility] Tlcfmhzg68[address] [place], [place] [id number]) [phone] Director: Eh Gould MD Basos % 0.8 % Normal [facility] Comment on above: Performed By: #### 9 227358, 237327, 0485451, 114393, 232132, 360012 ####[facility] Gkbmnzyk47759 [place] [address] Medical Director: Eh Gould MD Eos Count 0.21 x1000 Normal 0.00-0.50 [facility] Comment on above: Performed By: #### 9 776120, 532025, 7491656, 908181, 862999, 840600 ####[facility] Mbjqjdpm14425 [place] [address] Medical Director: Eh Gould MD Eosinophils/100 WBC (Bld) 7.5 % Normal [facility] Comment on above: Performed By: #### 9 784846, 265084, 0119989, 891609, 077554, 720911 ####[facility] [address]yrwk260[address] [place] [address] Medical Director: Eh Gould MD Lymph Count 1.03 x1000 Low 1.20-4.80 [facility] Comment on above: Performed By: #### 9 644193, 459050, 7223294, 481837, 099960, 920350 ####[facility] Psmyfzql21258 [place] [address] Medical Director: Eh Gould MD Lymphocytes/100 WBC (Bld) 36.5 % Normal [facility] Comment on above: Performed By: #### 9 212708, 142986, 6657366, 288995, 703805, 744546 ####[facility] Tabssqsl24027 [place] [address] Medical Director: Eh Gould MD [place] Count 0.08 x1000 Low 0.10-1.00 [facility] Comment on above: Performed By: #### 9 223609, 555676, 6487391, 695209, 077584, 376960 ####[facility] Lxxgsszn29828 [place] [address] Medical Director: Eh Gould MD Monocytes/100 WBC (Bld) 2.8 % Normal [facility] Comment on above: Performed By: #### 9 227534, 762607, 9829029, 834810, 187776, 578768 ####[facility] Rbfjybbw79426 [place] [address] Medical Director: Eh Gould MD Neutrophil Count (ANC) 1.48 x1000 Normal 1.40-8.80 So [facility] Comment on above: Performed By: #### 9 355681, 246320, 1684707, 300542, 803869, 736026 ####[facility] Isarvozy64867 [place] [address] Medical Director: Eh Gould MD Neutrophils/100 WBC (Bld) 52.5 % Normal [facility] Comment on above: Performed By: #### 9 881598, 026748, 8465830, 820633, 732563, 155091 ####[facility] Scyrxnti24458 [place] [address] Medical Director: Eh Gould MD Red Blood Cell Morphology See Notes Abnormal [facility] Comment on above: Result Comment: Macr ocytosis 2+ Rouleaux 1+ Performed By: #### 9 149449, 950565, 8786613, 860868, 178214, 047998 ####[facility] Nvebvynk89483 [place] [address] Medical Director: Eh Gould MD Scan Differential Diff Scd Normal [facility] Comment on above: Result Comment: Slid e reviewed by technologist. Performed By: #### 9 299709, 974075, 8768656, 997343, 191584, 284094 ####[facility] Qwnneyes34536 [place], [place] [id number]) [phone] Director: Eh Gould MD BASICMETAon 10-12-2023 Calcium [Mass/Vol] 10.1 mg/dL Normal 8.7-10.4 [facility] Comment on above: Performed By: #### 9 179280, 269146, 4402503, 916850, 169091, 759457 ####[facility] Vdj[address]hqo64467 [place] [address] Medical Director: Eh Gould MD Chloride [Moles/Vol] 103 mmol/L Normal 98-107 [facility] Comment on above: Performed By: #### 9 500589, 706934, 1308528, 605379, 102823, 241464 ####[facility] Iorvijjy76468 [place] [address] Medical Director: Eh Gould MD CO2 [Moles/Vol] 27.0 mmol/L Normal 20.0-31.0 [facility] Comment on above: Performed By: #### 9 130874, 998441, 3348831, 312614, 662617, 906677 ####[facility] Woshfqrc67052 [place] [address] Medical Director: Eh Gould MD Creatinine [Mass/Vol] 1.2 mg/dL High 0.6-1.1 [facility] Comment on above: Performed By: #### 9 404944, 554296, 6962626, 468126, 480019, 494038 ####[facility] Ybwnusob20486 [place] [address] Medical Director: Eh Gould MD GFR AA >60 Normal [facility] Comment on above: Result Comment: Afri can [place] GFR Calc Medical judgement is necessary to [...] for drug dosing. Performed By: #### 9 455516, 175186, 0485434, 069976, 216948, 384058 ####[facility] Uuyiselt84980 [place] [address] Medical Director: Eh Gould MD Glomerular Filtration Rate 59 mL/min/1.73m? Normal [facility] Comment on above: Result Comment: Non- [...] for drug dosing. Performed By: #### 9 924213, 566821, 3044144, 656759, 015947, 067754 ####[facility] Mqpwesoo26871 [place] [address] Medical Director: Eh Gould MD Glucose [Mass/Vol] 111 mg/dL High 74-106 [facility] [facility] Comment on above: Performed By: #### 9 195743, 318348, 6338396, 989948, 992494, 637232 ####[facility] [address]ks[address] [place] [address] Medical Director: Eh Gould MD Osmolality [Osmolality] 281 mosm/kg Normal 275-295 [facility] Comment on above: Performed By: #### 9 189204, 291000, 0093620, 477216, 141697, 271059 ####[facility] [address]izxufv[address]19 [place] [address] Medical Director: Eh Gould MD Potassium [Moles/Vol] 4.0 mmol/L Normal 3.5-5.1 [facility] Comment on above: Performed By: #### 9 444125, 946295, 7276650, 497796, 360330, 763161 ####[facility] Lhsrjrbb85294 [place] [address] Medical Director: Eh Gould MD Sodium [Moles/Vol] 140 mmol/L Normal 135-145 [facility] Comment on above: Performed By: #### 9 856706, 399305, 4423290, 798260, 004195, 963585 ####[facility] [address]ijrggk81409 [place] [address] Medical Director: Eh Gould MD Urea nitrogen [Mass/Vol] 16 mg/dL Normal 9-23 [facility] Comment on above: Result Comment: - Ve nipuncture should occur prior to N-Acetyl Cysteine (NAC) or Metamizole (Sulpyrine) administration due to the potential for falsely depressed results. - Blood samples from some patients with monoclonal gammopathies may produce falsely elevated results Performed By: #### 9 607746, 404333, 8482698, 128608, 507797, 947304 ####[facility] [address]phutpp54733 [place] [address] Medical Director: Eh Gould MD Urea nitrogen/Creatinine [Mass ratio] 13.3 mg/mg Normal [facility] Comment on above: Performed By: #### 9 574312, 730127, 3205624, 756497, 974772, 980650 ####[facility] Wnkujanc57103 [place] [address] Medical Director: Eh Gould MD HEMOon 10-12-2023 DIFF? No Normal [facility] Comment on above: Performed By: #### 9 435681, 670070, 8401510, 923201, 326099, 516948 ####[facility] Ibmeuznn67169 [place] [address] Medical Director: Eh Gould MD HEM PATH REVIEW See Diff Review Interp Normal [facility] Comment on above: Performed By: #### 9 002879, 007835, 6763665, 926025, 185585, 049337 ####[facility] Zaajrtad[address]72 [place] [address] Medical Director: Eh Gould MD Nucleated RBC 0 /100WBC Normal [facility] Comment on above: Performed By: #### 9 391185, 874395, 1202711, 883168, 735551, 821291 ####[facility] J[address]wgh83903 [place] [address] Medical Director: Eh Gould MD DxH Actions See Notes Abnormal [facility] Comment on above: Result Comment: Scan for RBC Morphology Scan Slide. Perform manual diff if needed. SNV Performed By: #### 9 545745, 402646, 0377212, 188830, 947167, 091485 ####[facility] [address]wjhytbh32869 [place] [address] Medical Director: Eh Gould MD Erythrocyte distribution width (RBC) [Ratio] 13.5 % Normal 11.5-14.5 [facility] Comment on above: Performed By: #### 9 515668, 632355, 9329716, 980018, 259804, 718251 ####[facility] Tnrmqvzq01512 [place] [address] Medical Director: Eh Gould MD Hematocrit (Bld) [Volume fraction] 27.4 % Low 41.0-52.0 [facility] Comment on above: Performed By: #### 9 846986, 375972, 9163637, 851689, 131491, 419303 ####[facility] Uenbmhxp39814 [place] [address] Medical Director: Eh Gould MD Hemoglobin (Bld) [Mass/Vol] 9.4 g/dL Low 13.5-17.5 [facility] Comment on above: Performed By: #### 9 810010, 912595, 4147623, 650995, 405615, 961829 ####[facility] Dbywrwsk39407 [place], [place] [id number]) [phone] Director: Eh Gould MD Instr WBC 2.8 Normal [facility] Comment on above: Performed By: #### 9 189024, 136432, 9996451, 958419, 238360, 475460 ####[facility] [address]251 [place] [address] Medical Director: Eh Gould MD MCH (RBC) [Entitic mass] 37.4 pg High 27.0-34.0 [facility] Comment on above: Performed By: #### 9 538855, 409232, 4028033, 225909, 323348, 416017 ####[facility] Qohlhjaa11988 [place], [place] [id number]) [phone] Director: Eh Gould MD MCHC (RBC) [Mass/Vol] 34.2 g/dL Normal 32.0-37.0 [facility] Comment on above: Performed By: #### 9 476285, 547041, 4630550, 631030, 758330, 590030 ####[facility] Jvhputrv17847 [place], [place] [address]) [phone] Director: Eh Gould MD MCV (RBC) [Entitic vol] 109.4 fL High 80.0-100.0 [facility] Comment on above: Performed By: #### 9 849390, 153342, 5109034, 920267, 690686, 405455 ####[facility] Dqlttfpv93702 [place], [place] [address]) [phone] Director: Eh Gould MD Platelet 165 x10 Normal 150-450 [facility] Comment on above: Performed By: #### 9 690966, 080110, 1653762, 544699, 667871, 393102 ####[facility] Pdomoxlf24354 [place] [address] Medical Director: Eh Gould MD Platelet mean volume (Bld) [Entitic vol] 6.3 fL Low 7.4-10.4 [facility] Comment on above: Performed By: #### 9 819723, 065586, 8254900, 050605, 699969, 172866 ####[facility] Euhchswz89663 [place], [place] [address]) [phone] Director: Eh Gould MD RBC 2.51 x10 Low 4.70-6.10 [facility] Comment on above: Result Comment: Note : RBC morphology is normal unless otherwise stated. Evaluation performed only if differential is requested. Performed By: #### 9 976726, 208110, 4340141, 476597, 635652, 014679 ####[facility] [address]gknkaix76487 [place] [address] Medical Director: Eh Gould MD WBC 2.8 x10 Low 4.5-11.0 [facility] Comment on above: Performed By: #### 9 141542, 425073, 7695308, 982005, 443106, 072653 ####[facility] Aaxuohzc[address]26 [place] [address] Medical Director: Eh Gould MD PT INRon 10-12-2023 INR Coag (PPP) [Relative time] 1.2 {INR} Normal [facility] Comment on above: Result Comment: INR Reference Range: Normal reference range for INR on patients not on anticoagulant therapy: 0.9-1.1 General therapeutic range for patients on anticoagulant therapy: 2.0-3.5 Performed By: #### 9 772862, 346286, 8147126, 185463, 171751, 171110 ####[facility] Bgtdfgeh94575 [place] [address] Medical Director: Eh Gould MD Protime Patient 13.4 seconds High 9.8-12.8 [facility] Comment on above: Performed By: #### 9 560254, 794613, 3994988, 446629, 282783, 357995 ####[facility] Rvqscukl29973 [place] [address] Medical Director: Eh Gould MD Preadmission Testing [...] surgeon. Simba TOLEDO, Dante Lanier on Normal [facility] UAon 10-12-2023 U MICRO Indicated Normal [facility] Comment on above: Performed By: #### 1 78700 #### [facility] Services [address] [place] [address] Junior Graphic Designer: Eh Gould MD Appearance, U Clear Normal [facility] Comment on above: Performed By: #### 1 75587 #### [facility] [address] [place] [address] Junior Graphic Designer: Eh Gould MD Bilirubin, U Negative Normal Negative [facility] Comment on above: Performed By: #### 1 05084 #### [facility] [address] [place] [address] Junior Graphic Designer: Eh Gould MD Blood, U Moderate Abnormal Negative [facility] Comment on above: Performed By: #### 1 23175 #### [facility] Services [address] [place] [address] Junior Graphic Designer: Eh Gould MD Color, U Yellow Normal [facility] Comment on above: Performed By: #### 1 94313 #### [facility] Services [address] [place] [address] Junior Graphic Designer: Eh Gould MD Glucose Qual, U Negative Normal Negative [facility] Comment on above: Performed By: #### 1 71808 #### [facility] Services [address] [place] [address] Junior Graphic Designer: Eh Gould MD Hyaline Cast <1 Normal [facility] Comment on above: Performed By: #### 1 37730 #### [facility] Services [address] [place] [address] Junior Graphic Designer: Eh Gould MD Ketones, U Negative Normal Negative [facility] Comment on above: Performed By: #### 1 96426 #### [facility] Services [address] [place] [address] Junior Graphic Designer: Eh Gould MD Leukocyte Esterase, U Negative Normal Negative [facility] Comment on above: Performed By: #### 1 45529 #### [facility] [address] [place] [address] Junior Graphic Designer: Eh Gould MD Mucous, U Occasional Normal [facility] Comment on above: Performed By: #### 1 73605 #### [facility] Services [address] [place] [address] Junior Graphic Designer: Eh Gould MD Nitrite, U Negative Normal Negative [facility] Comment on above: Performed By: #### 1 84748 #### [facility] [address] [place] [address] Junior Graphic Designer: Eh Gould MD pH, U 5.0 Normal 4.5-8.0 [facility] Comment on above: Performed By: #### 1 74494 #### [facility] Services [address] [place] [address] Junior Graphic Designer: Eh Gould MD Protein, U Negative Normal Negative [facility] Comment on above: Performed By: #### 1 72087 #### [facility] Services [address] [place] [address] Junior Graphic Designer: Eh Gould MD RBC/HPF, U 5 #/HPF High 0-3 [facility] Comment on above: Performed By: #### 1 99194 #### [facility] Services [address] [place] [address] Junior Graphic Designer: Eh Gould MD Specific [place], U 1.016 Normal 1.001-1.035 [facility] Comment on above: Performed By: #### 1 67616 #### [facility] Services [address] [place] [address] Junior Graphic Designer: Eh Gould MD Urobilinogen Qual, U <2.0 mg/dl Normal <2.0 mg/dl [facility] Comment on above: Result Comment: EU/d l and mg/dl are equivalent units. Performed By: #### 1 69448 #### [facility] Services [address] [place] [address] Junior Graphic Designer: Eh Gould MD WBC/HPF, U 7 #/HPF High 0-5 [facility] Comment on above: Performed By: #### 1 02570 #### [facility] Services [address] [place] [address] Junior Graphic Designer: Eh Gould MD Activated clotting timeon ACT Coag (Bld) 271 s High 89-169 [facility] Comment on above: Result Comment: Targ et ACT range will vary based on the patient population, clinical status, and surgical intervention occurring. Performed By: #### 3 184-9 #### JAVAD Stephenson ([id number]) [facility] ([facility]) [id number] [place] [address] CT WATCHMAN FULL CONTRASTon 08-28-2023 CT WATCHMAN FULL CONTRAST Interpreted By: Purnima Lira, STUDY: CT WATCHMAN FULL CONTRAST; 08/28/2023 12:00 pm INDICATION: Signs/Symptoms:pre Watchman procedure SAME DAY CT. COMPARISON: None. ACCESSION NUMBER(S): [id number] ORDERING CLINICIAN: RYAN COBB TECHNIQUE: Using multi [...] Purnima Lira 09/06/2023 9:28 AM Dictation workstation: [id number] [facility] ECG 12-LEADon 08-28-2023 ECG 12-LEAD Ventricular Rate 63 Atrial Rate 63 P-R Interval 196 QRS Duration 86 Q-T Interval 402 QTC Calculation(Bazett) 411 P Polo 67 R Polo -1 T Polo 20 QRS Count 10 Q Onset 223 P Onset 125 P Offset 180 T Offset 424 QTC Fredericia 408 Diagnosis Normal sinus rhythm Inferior infarct Possible Anterior infarct Abnormal ECG Confirmed by Benny Obrien ([id number]) on 08/30/2023 3:59:32 PM Normal [facility] STRUCTURAL HEART PROCEDUREon 08-28-2023 STRUCTURAL HEART PROCEDURE [facility], Clerk Guide, [address] [place] [address] Cardiovascular Catheterization Report Patient Name: NEIL SAUCEDOUBB Performing Physician: [id number] Cobb MD Study Date: 08/28/2023 Verifying Physician: Archie Cobb MD MRN/PID: [id number] Director Dermatology/Co-scrub: Ordering Physician: Archie TRINIDADBY Date of 1945 Fellow: [id number] Adam Benedict /Age: years Gender: M Fellow: [...] guidance, transseptal puncture was with a versacross (Triplify), accessing the left atrium. The transseptal tract was then dilated with a Watchman Double Curve access sheath and the ICE probe was advanced through the dilated tract into the left atrium. Next, a 6 Stateless angled pigtail was advanced through the delivery [...] CPT Codes: Perc left atrial appendage closure (LAAC)-29892 [id number] Ryan Cobb MD Performing Physician Final [facility] TRANSTHORACIC ECHO (TTE) MARITZA Epperson 08-28-2023 TRANSTHORACIC ECHO (TTE) LIMITED [facility], [address] [place] [address] and TRANSTHORACIC ECHOCARDIOGRAM REPORT Patient Name: NEIL WILCOX Reading Physician: [id number] Jacobo French MD Study Date: 08/28/2023 Ordering Provider: [id number] LUCAS PEARCE MRN/PID: [id number] Fellow: Nurse: Date of 1945 Edge Gluer: Moncho Infante RDCS /Age: years Gender: M Additional Staff: Height: 175.26 cm Admit Date: 08/28/2023 Weight: 79.38 kg Admission Status: Inpatient - Routine BSA: 1.95 m2 Department [facility] Cath Location: Lab Blood Pressure: 137 /78 mmHg Study Type: TRANSTHORACIC ECHO (TTE) LIMITED Diagnosis/ICD: Unspecified atrial fibrillation-I48.91 Indication: POST LAAO CPT Code: Echo Limited-18636 Patient History: Pertinent History: HTN; HLD; paroxysmal [...] 72.4 g/m2 LV % FS 32.6 % [id number] Jacobo French MD Electronically signed on 08/28/2023 at 5:50:59 PM Final [facility] TRANSTHORACIC ECHO (TTE) [facility], [address] [place] [address] and TRANSTHORACIC ECHOCARDIOGRAM REPORT Patient Name: NEIL Matthews DAVIAN Reading Physician: [id number] Kandis Chau MD Study Date: 08/28/2023 Ordering Provider: [id number] LUCAS PEARCE MRN/PID: [id number] Fellow: Nurse: Date of /Age: 1 1945 / 77 years Edge Gluer: Moncho Infante RDCS Gender: M Additional Staff: Height: 175.26 cm Admit Date: 08/28/2023 Weight: 79.38 kg Admission Status: Inpatient - Routine BSA: 1.95 m2 Department Location: [facility] Non Invasive Study Type: TRANSTHORACIC ECHO (TTE) LIMITED Diagnosis/ICD: Unspecified atrial fibrillation-I48.91 Indication: Pre-LAAO CPT Code: Echo Limited-63781 Patient History: Pertinent History: HTN; HLD: paroxysmal [...] VALVE/RVSP: Normal Ranges: IVC Diam: 1.50 cm [id number] Kandis Chau MD Electronically signed on 08/28/2023 at 3:17:19 PM Final [facility] US Heart Transthoracicon [facility], [address] [place] [address] and TRANSTHORACIC ECHOCARDIOGRAM REPORT Patient Name: NEIL Matthews DAVIAN Reading Physician: [id number] Kandis Chau MD Study Date: 08/28/2023 Ordering Provider: [id number] LUCAS PEARCE MRN/PID: [id number] Fellow: Nurse: Date of /Age: 1 1945 / 77 years Edge Gluer: Moncho Infante RDCS Gender: M Additional Staff: Height: 175.26 cm Admit Date: 08/28/2023 Weight: 79.38 kg Admission Status: Inpatient - Routine BSA: 1.95 m2 Department Location: [facility] Non Invasive Study Type: TRANSTHORACIC ECHO (TTE) LIMITED Diagnosis/ICD: Unspecified atrial fibrillation-I48.91 Indication: Pre-LAAO CPT Code: Echo Limited-40989 Patient History: Pertinent History: HTN; HLD: paroxysmal [...] VALVE/RVSP: Normal Ranges: IVC Diam: 1.50 cm [id number] Kandis Chau MD Electronically signed on 08/28/2023 at 3:17:19 PM Final AIYANAO Kandis Chau MD - 08/28/2023 [facility], [address] [place] [address] and TRANSTHORACIC ECHOCARDIOGRAM REPORT Patient Name: NEIL WILCOX Reading Physician: [id number] Kandis Chau MD Study Date: 08/28/2023 Ordering Provider: [id number] LUCAS PEARCE MRN/PID: [id number] Fellow: Nurse: Date of /Age: 1 1945 / 77 years Edge Gluer: Moncho Infante RDFLORENCE Gender: M Additional Staff: Height: 175.26 cm Admit Date: 08/28/2023 Weight: 79.38 kg Admission Status: Inpatient - Routine BSA: 1.95 m2 Department Location: [facility] Non Invasive Study Type: TRANSTHORACIC ECHO (TTE) LIMITED Diagnosis/ICD: Unspecified atrial fibrillation-I48.91 Indication: Pre-LAAO CPT Code: Echo Limited-70618 Patient History: Pertinent History: HTN; HLD: paroxysmal [...] VALVE/RVSP: Normal Ranges: IVC Diam: 1.50 cm [id number] Kandis Chau MD Electronically signed on 08/28/2023 at 3:17:19 PM Final [facility] Work Phone: Heart TransthoracicOrdere d By: Kandis Chau on 08-28-2023 [facility] Work Phone: Creatinineon 08-22-2023 Creatinine [Mass/Vol] 1.23 mg/dL Normal 0.50-1.30 [facility] Comment on above: Performed By: #### 2 160-0 #### LINDA GALLAGHER ([id number]) [facility]) [address] [place] [address] Creatinine [Mass/Vol]on 07-26 GFR/1.73 sq M.predicted MDRD (S/P/Bld) [Vol rate/Area] 61 mL/min/1.73m*2 Normal >60 [facility] Comment on above: Result Comment: Calc ulations of estimated GFR are performed using the 2020 CKD-EPI Study Refit equation without the race variable for the IDMS-Traceable creatinine methods. https://jasn.asnjournals.org/content/early//ASN.2020 487839 Performed By: #### 2 160-0 #### LINDA GALLAGHER ([id number]) [facility]) [address] [place] [address] CBC W Auto Differential pane l (Bld)on 07-31-2023 Basophils (Bld) [#/Vol] 10*3/uL Normal <0.11 C [facility] Comment on above: Order Comment: Speci men Type: BLOOD SPECIMEN Ordering Facility: External Submitter Address: , , Performed By: #### 5 7021-8 #### [facility] CLIA [id number] [address] [place] [address] [place] Basophils/100 WBC (Bld) 0.3 % Normal C [facility] Comment on above: Order Comment: Speci men Type: BLOOD SPECIMEN Ordering Facility: External Submitter Address: , , Performed By: #### 5 7021-8 #### [facility] CLIA [id number] [address] [place] [address] [place] CBC W Differential panel, method unspecified (Bld) Done Normal [facility] Comment on above: Order Comment: Speci men Type: BLOOD SPECIMEN Ordering Facility: External Submitter Address: , , Performed By: #### 5 7021-8 #### [facility] CLIA [id number] [address] [place] [address] [place] Differential cell count method Nom (Bld) Auto Normal [facility] Comment on above: Order Comment: Speci men Type: BLOOD SPECIMEN Ordering Facility: External Submitter Address: , , Performed By: #### 5 7021-8 #### [facility] CLIA [id number] [address] [place] [address] [place] Eosinophils (Bld) [#/Vol] 0.22 10*3/uL Normal <0.[address] [facility] Comment on above: Order Comment: Speci men Type: BLOOD SPECIMEN Ordering Facility: External Submitter Address: , , Performed By: #### 5 7021-8 #### [facility] CLIA [id number] [address] [place] [address] [place] Eosinophils/100 WBC (Bld) 6.5 % Normal [facility] Comment on above: Order Comment: Speci men Type: BLOOD SPECIMEN Ordering Facility: External Submitter Address: , , Performed By: #### 5 7021-8 #### [facility] CLIA [id number] [address] [place] [address] [place] Erythrocyte distribution width (RBC) [Ratio] 13.0 % Normal 11.5-15.[address] [facility] Comment on above: Order Comment: Speci men Type: BLOOD SPECIMEN Ordering Facility: External Submitter Address: , , Performed By: #### 5 7021-8 #### [facility] CLIA [id number] [address] [place] [address] [place] Hematocrit (Bld) [Volume fraction] 31.3 % Low 39.0-51.[address] [facility] Comment on above: Order Comment: Speci men Type: BLOOD SPECIMEN Ordering Facility: External Submitter Address: , , Performed By: #### 5 7021-8 #### [facility] [place] [id number] [address] [place] [address] [place] Hemoglobin (Bld) [Mass/Vol] 10.4 g/dL Low 13.0-17.[address] [facility] Comment on above: Order Comment: Speci men Type: BLOOD SPECIMEN Ordering Facility: External Submitter Address: , , Performed By: #### 5 7021-8 #### [facility] [place] [id number] [address] [place] [address] [place] Immature granulocytes (Bld) [#/Vol] 10*3/uL Normal <0.[address] [facility] Comment on above: Order Comment: Speci men Type: BLOOD SPECIMEN Ordering Facility: External Submitter Address: , , Performed By: #### 5 7021-8 #### [facility] CLIA [id number] [address] [place] [address] OF [place] Immature granulocytes/100 WBC (Bld) 0.0 % Normal [facility] Comment on above: Order Comment: Speci men Type: BLOOD SPECIMEN Ordering Facility: External Submitter Address: , , Performed By: #### 5 7021-8 #### [facility] CLIA [id number] [facility] [place] [address] [place] Lymphocytes (Bld) [#/Vol] 1.06 10*3/uL Normal 1.00-4.[address] [facility] Comment on above: Order Comment: Speci men Type: BLOOD SPECIMEN Ordering Facility: External Submitter Address: , , Performed By: #### 5 7021-8 #### [facility] CLIA [id number] [address] [place] [address] [place] Lymphocytes/100 WBC (Bld) 31.2 % Normal [facility] Comment on above: Order Comment: Speci men Type: BLOOD SPECIMEN Ordering Facility: External Submitter Address: , , Performed By: #### 5 7021-8 #### [facility] CLIA [id number] [address] [place] [address] [place] MCH (RBC) [Entitic mass] 37.3 pg High 26.0-34.[address] [facility] Comment on above: Order Comment: Speci men Type: BLOOD SPECIMEN Ordering Facility: External Submitter Address: , , Performed By: #### 5 7021-8 #### [facility] CLIA [id number] [address] [place] [address] [place] MCHC (RBC) [Mass/Vol] 33.2 g/dL Normal 30.5-36.0 [facility] Comment on above: Order Comment: Speci men Type: BLOOD SPECIMEN Ordering Facility: External Submitter Address: , , Performed By: #### 5 7021-8 #### [facility] [facility] CLIA [id number] [address] [place] [address] [place] MCV (RBC) [Entitic vol] 112.2 fL High 80.0-100.0 C [facility] Comment on above: Order Comment: Speci men Type: BLOOD SPECIMEN Ordering Facility: External Submitter Address: , , Performed By: #### 5 7021-8 #### [facility] CLIA [id number] [address] [place] [address] [place] Monocytes (Bld) [#/Vol] 0.13 10*3/uL Normal <0.[address] [facility] Comment on above: Order Comment: Speci men Type: BLOOD SPECIMEN Ordering Facility: External Submitter Address: , , Performed By: #### 5 7021-8 #### [facility] CLIA [id number] [address] [place] [address] [place] Monocytes/100 WBC (Bld) 3.8 % Normal C [facility] Comment on above: Order Comment: Speci men Type: BLOOD SPECIMEN Ordering Facility: External Submitter Address: , , Performed By: #### 5 7021-8 #### [facility] CLIA [id number] [address] [place] [address] [place] Neutrophils (Bld) [#/Vol] 1.98 10*3/uL Normal 1.45-7.[address] [facility] Comment on above: Order Comment: Speci men Type: BLOOD SPECIMEN Ordering Facility: External Submitter Address: , , Performed By: #### 5 7021-8 #### [facility] CLIA [id number] [address] [place] [address] [place] Neutrophils/100 WBC (Bld) 58.2 % Normal [facility] Comment on above: Order Comment: Speci men Type: BLOOD SPECIMEN Ordering Facility: External Submitter Address: , , Performed By: #### 5 7021-8 #### [facility] CLIA [id number] [address] [place] [address] [place] Nucleated RBC (Bld) [#/Vol] 10*3/uL Normal <0.[address] [facility] Comment on above: Order Comment: Speci men Type: BLOOD SPECIMEN Ordering Facility: External Submitter Address: , , Performed By: #### 5 7021-8 #### [facility] CLIA [id number] [address] [place] [id number] [place] Nucleated RBC/100 WBC (Bld) [Ratio] 0.0 /100 WBC Normal [facility] Comment on above: Order Comment: Speci men Type: BLOOD SPECIMEN Ordering Facility: External Submitter Address: , , Performed By: #### 5 7021-8 #### [facility] CLIA [id number] [address] [place] [address] [place] Platelet mean volume (Bld) [Entitic vol] 9.1 fL Normal 9.0-12.[address] [facility] Comment on above: Order Comment: Speci men Type: BLOOD SPECIMEN Ordering Facility: External Submitter Address: , , Performed By: #### 5 7021-8 #### [facility] CLIA [id number] [address] [place] [address] [place] Platelets (Bld) [#/Vol] 166 10*3/uL Normal 150-[address] [facility] Comment on above: Order Comment: Speci men Type: BLOOD SPECIMEN Ordering Facility: External Submitter Address: , , Performed By: #### 5 7021-8 #### [facility] CLIA [id number] [address] [place] [address] [place] Platelets Estimate (Bld) [#/Vol] Adequate Normal [facility] Comment on above: Order Comment: Speci men Type: BLOOD SPECIMEN Ordering Facility: External Submitter Address: , , Performed By: #### 5 7021-8 #### [facility] CLIA [id number] [address] [place] [address] [place] RBC (Bld) [#/Vol] 2.79 10*6/uL Low 4.20-6.00 [facility] Comment on above: Order Comment: Speci men Type: BLOOD SPECIMEN Ordering Facility: External Submitter Address: , , Performed By: #### 5 7021-8 #### [facility] CLIA [id number] [address] [place] [address] [place] RED CELL MORPH Reviewed: unremarkable Normal [facility] Comment on above: Order Comment: Speci men Type: BLOOD SPECIMEN Ordering Facility: External Submitter Address: , , Performed By: #### 5 7021-8 #### [facility] CLIA [id number] [address] [place] [address] [place] WBC (Bld) [#/Vol] 3.40 10*3/uL Low 3.70-11.00 [facility] Comment on above: Order Comment: Speci men Type: BLOOD SPECIMEN Ordering Facility: External Submitter Address: , , Performed By: #### 5 7021-8 #### [facility] CLIA [id number] [address] [place] [address] [place] Comprehensive metabolic 2000 panelon 07-31-2023 Albumin [Mass/Vol] 3.8 g/dL Low 3.9-4.9 [facility] Comment on above: Order Comment: Speci men Type: BLOOD SPECIMEN Ordering Facility: External Submitter Address: , , Performed By: #### 2 4323-8, 302-7, 3015-3 #### [facility] CLIA [id number] [address] [place] [address] [place] ALP [Catalytic activity/Vol] 132 U/L High 38-[address] [facility] Comment on above: Order Comment: Speci men Type: BLOOD SPECIMEN Ordering Facility: External Submitter Address: , , Performed By: #### 2 4323-8, 3024-7, 3016-3 #### [facility] CLIA [id number] [address] [place], [place] [address] [place] ALT [Catalytic activity/Vol] 9 U/L Low 10-[address] [facility] Comment on above: Order Comment: Speci men Type: BLOOD SPECIMEN Ordering Facility: External Submitter Address: , , Performed By: #### 2 4323-8, 3023-7, 3 #### [facility] CLIA [id number] [address] [place] [id number] [place] Anion gap [Moles/Vol] 15 mmol/L Normal 9-18 [facility] Comment on above: Order Comment: Speci men Type: BLOOD SPECIMEN Ordering Facility: External Submitter Address: , , Performed By: #### 2 4323-8, 7, 3 #### [facility] CLIA [id number] [address] [place] [id number] [place] AST [Catalytic activity/Vol] 16 U/L Normal 14-[address] [facility] Comment on above: Order Comment: Speci men Type: BLOOD SPECIMEN Ordering Facility: External Submitter Address: , , Performed By: #### 2 4323-8, 3024-03, 3015-11 #### [facility] CLIA [id number] [address] [place] [id number] [place] Bilirubin [Mass/Vol] 0.4 mg/dL Normal 0.2-1.3 [facility] Comment on above: Order Comment: Speci men Type: BLOOD SPECIMEN Ordering Facility: External Submitter Address: , , Performed By: #### 2 4323-8, 3024-03, 3 #### [facility] CLIA [id number] [address] [place] [id number] [place] Calcium [Mass/Vol] 9.6 mg/dL Normal 8.5-10.2 [facility] Comment on above: Order Comment: Speci men Type: BLOOD SPECIMEN Ordering Facility: External Submitter Address: , , Performed By: #### 2 4323-8, 3023-7, 3 #### [facility] CLIA [id number] [address] [place] [id number] [place] Chloride [Moles/Vol] 99 mmol/L Normal 97-105 [facility] Comment on above: Order Comment: Speci ciera Type: BLOOD SPECIMEN Ordering Facility: External Submitter Address: , , Performed By: #### 2 4323-8, 302-7, 3 #### [facility] CLIA [id number] [address] [place] [address] [place] CO2 [Moles/Vol] 23 mmol/L Normal 22-[address] [facility] Comment on above: Order Comment: Speci men Type: BLOOD SPECIMEN Ordering Facility: External Submitter Address: , , Performed By: #### 2 4323-8, 3024-03, 3015-11 #### [facility] CLIA [id number] [address] [place] [address] [place] Creatinine [Mass/Vol] 1.23 mg/dL High 0.73-1.22 [facility] Comment on above: Order Comment: Speci ciera Type: BLOOD SPECIMEN Ordering Facility: External Submitter Address: , , Performed By: #### 2 4323-8, 3024-03, 3015-11 #### [facility] CLIA [id number] [address] [place] [address] OF [facility] Creatinine and Glomerular filtration rate.predicted panel (S/P/Bld) 61 mL/min/1.73m??? Normal >=[address] [facility] Comment on above: Order Comment: Speci ciera [...] actual GFR. Performed By: #### 2 4323-8, 302-7, 3 #### [facility] CLIA [id number] [address] [address] [place] Glucose [Mass/Vol] 139 mg/dL High 74-99 [facility] Comment on above: Order Comment: Gee vang Type: BLOOD SPECIMEN Ordering Facility: External Submitter Address: , , Result Comment: The [place] Diabetes Association (ADA) provides guidance for cutoff [...] Standards of Medical Care in Diabetes 2016, [place] [employer]. Diabetes Care. 2016.39(Suppl 1). Performed By: #### 2 4323-8, 3024-03, 3015-11 #### [facility] CLIA [id number] [address] [address] [place] Potassium [Moles/Vol] 4.0 mmol/L Normal 3.7-5.1 [facility] Comment on above: Order Comment: Gee vang Type: BLOOD SPECIMEN Ordering Facility: External Submitter Address: , , Performed By: #### 2 4323-8, 3024-03, 3 #### [facility] CLIA [id number] [address] [address] [place] Protein [Mass/Vol] 7.7 g/dL Normal 6.3-8.0 [facility] Comment on above: Order Comment: Gee vang Type: BLOOD SPECIMEN Ordering Facility: External Submitter Address: , , Performed By: #### 2 4323-8, 3024-03, 3015-11 #### [facility] CLIA [id number] [address] [address] [place] Sodium [Moles/Vol] 137 mmol/L Normal 136-144 [facility] Comment on above: Order Comment: Speci men Type: BLOOD SPECIMEN Ordering Facility: External Submitter Address: , , Performed By: #### 2 4323-8, 3024-7, 6-3 #### [facility] CLIA [id number] [address] [place] [address] STATES OF [facility] Urea nitrogen [Mass/Vol] 19 mg/dL Normal 9-[address] [facility] Comment on above: Order Comment: Speci men Type: BLOOD SPECIMEN Ordering Facility: External Submitter Address: , , Performed By: #### 2 4323-8, 3024-7, 3015-3 #### [facility] CLIA [id number] [address] [place] [address] [place] T4 Free SerPl-mCncon 023 Free T4 [Mass/Vol] 1.1 ng/dL Normal 0.9-1.7 [facility] Comment on above: Order Comment: Speci men Type: BLOOD SPECIMEN Ordering Facility: External Submitter Address: , , Performed By: #### 2 4323-8, 302-7, 3 #### [facility] CLIA [id number] [address] [place] [address] [place] TSH SerPl-aCncon 07-31-2023 TSH Qn 4.190 m[IU]/L Normal 0.270-4.[address] [facility] Comment on above: Order Comment: Speci men Type: BLOOD SPECIMEN Ordering Facility: External Submitter Address: , , Performed By: #### 2 4323-8, 3024-7, 6-3 #### [facility] CLIA [id number] [address] [place] [address] [place] Ambulatory Visit Summaryon 1 [...] 325 mg-50 mg-40 mg Tab) Misc Prescription ([employer] [facility] B-12 1,000 MCG TABLET) Non-Formulary Medication (Butapap [...] spironolactone (spironolactone 25 mg Tab) thyroid desiccated (Tieton Thyroid) Procedures Performed Urethral dilatation (11/03/2022), TURP - Transurethral resection of prostate (08/31/2022), Cystoscopy (01/24/2022), Colonoscopy, Shoulder replacement. Discharge Vitals Heart Rate (Peripheral) 68 Respiratory Rate 16 Blood Pressure 132/78 Height 175 cm Height 69 in Weight 79.5 kg Weight 174.9 lb BMI 25.96 What to do next You Need to Schedule the Following Appointments Follow Up with MARTY BETANCOURT, Trung Frost, URL When: In 4 months Where: [facility] [address] [place] [address]- Medications What How Much When Instructions Changed tolterodine (tolterodine 2 mg Cap-ER) 1 Capsules By Mouth Every day Pickup at [facility]/pharmacy #[id number] Unchanged APAP/ butalbital/ caffeine (APAP/ butalbital/ caffeine [...] if questions or concerns Unchanged thyroid desiccated (Tieton Thyroid) By Mouth Every day Contact prescribing physician if questions or concerns Pharmacy Information [facility]/pharmacy #[id number]: [address], [place] [phone] [phone] Allergies No Known Allergies Problems Ongoing - Any problem that you are currently receiving treatment for. BPH without urinary obstruction Hesitancy Hypertension Incomplete bladder emptying Intertrigo mild [place] (myocardial infarction) Nocturia Protein in urine Proteinuria [...] This condi (more content not included)... Normal [facility] Patient Educationon 07-09-20 Patient Education [...] Follow these instructions at home: ? Take qfkt-wsd-zmpzmft and prescription medicines only as told by [...] the medicine (more content not included)... Normal [facility] Urology Office/Clinic Noteon 07-09-2023 Urology Office/Clinic Note [...] When Contact Information MARTY BETANCOURT, Trung Frost, JOSH In 4 months [facility] [address], [place] [address]- Additional Instructions: Patient Education Benign Prostatic Hyperplasia I, Valentine Fuentes , personally scribed for Dr. Ferguson on 07/09/2023 11:38:56. . Documentation recorded by the scribgideon, Valentine Fuentes, accurately reflects the services(s) I performed and decisions made by me. Problem List/Past Medical History Ongoing BPH without urinary obstruction Hesitancy Hypertension Incomplete bladder emptying Intertrigo mild [place] (myocardial infarction) Nocturia Protein in urine Proteinuria Smoker Urethral meatal stenosis Urge incontinence Urinary incontinence without sensory awareness Urinary retention Historical No qualifying data Procedure/Surgical History Urethral dilatation (11/03/2022), TURP - Transurethral resection of prostate (08/31/2022), Cystoscopy (01/24/2022), Colonoscopy, Shoulder replacement. Medications APAP/butalbital/caffei ne 325 mg-50 mg-40 mg Tab Tieton Thyroid, Oral, Daily atorvastatin, Oral, Daily Butapap cat 40mg PRN [facility] B-12 1,000 MCG TABLET, 0 doxazosin 4 mg Tab Eliquis 5 mg oral tablet FLUoxet (more content not included)... Normal [facility] Comment on above: Result Comment: Elec tronically Signed By: MARTY BETANCOURT, Trung Frost\.br\Date and Time Signed: 07/09/23 11:43 EDT\.br\Electronically Co-Signed [...] Orders Anemia Complete Blood Count; Status:Active; Requested for:[id number]; Atrial fibrillation, currently in sinus rhythm, Frequent falls Cardiology - Valve and Structural Heart Program Referral Evaluation and Treatment Evaluate AND Treat Status: Hold For - Scheduling Requested for: [id number] SocHx: Former smoker Tobacco Use Screening; Status:Complete; Done: [id number] Patient Instructions Please bring all medicines, vitamins, [...] fibrillation, hypercoagulability related to atrial fibrillation, high [id number] score, most recently seen February 2023 and [...] due to atrial fibrillation, on anticoagulation. 10. [id number] at least 5. Has bled score 2 [...] cuff rep (more content not included)... Normal [employer] Tobacco Screening.on 023 Fall risk assessment b) One or more fall s in the last year -[facility] [place] [address] DO Work Phone: Tobacco use status CPHS b) No M -[facility] [place] [address] DO Work Phone: Tobacco Screening. Yes [facility] [place] [address] DO Work Phone: Patient Educationon [...] provider. Document Revised: 01/19/2022 Document Reviewed: 01/19/2022 [employer] Patient Education ? 2022 [employer]. Ray [facility] Urology Office/Clinic Noteon 04-03-2023 Urology Office/Clinic Note [...] see #2 Follow-up With When Contact Information RITESH ALTAMIRANO, CHARLOTTE Meneses, URL [address] [facility] [place] [address] Additional Instructions: keep appt w/ Patient Education Kegel Exercises Documentation recorded by the scribgideon Fuentes accurately reflects the services(s) I performed and decisions made by me. Authenticated by Charlotte Baker PA-C on 04/03/2023 09:50:52. I, Valentine Fuentes, personally scribed for Charlotte Baker PA-C on 04/03/2023 09:31:40. . Problem List/Past Medical History Ongoing BPH without urinary obstruction Hesitancy Hypertension Incomplete bladder emptying Intertrigo mild [place] (myocardial infarction) Nocturia Protein in urine Proteinuria Smoker Urethral meatal stenosis Urge incontinence Urinary incontinence without sensory awareness Urinary retention Historical No qualifying data Procedure/Surgical History Urethral dilatation (11/03/2022), TURP - Transurethral resection of prostate (08/31/2022), Cystoscopy (01/24/2022), Colonoscopy, Shoulder replacement. Medications amLODIPine 5 mg Tab Tieton Thyroid, Oral, Daily aspirin 81 mg oral [...] vaccine 10/19/2015 Recorded pneumococcal 23-valent vaccine 07/12/ more content not included)... Normal [facility] Comment on above: Result Comment: Elec tronically [...] Once daily Device check as directed per [facility] protocol Chief Complaint NEIL WILCOX is being [...] due to atrial fibrillation, on anticoagulation. 10. [id number] at least 5. Has bled score 2 [...] losartan in (more content not included)... Normal [employer] Tobacco Screening.on 023 Fall risk assessment b) One or more fall s in the last year -[facility] [place] [address] DO Work Phone: Tobacco use status CPHS b) No M -[facility] [place] [address] DO Work Phone: Patient Educationon [...] conditioner or fan, if available. ? Apply afsq-gym-tzbqtgf and prescription medicines only as told by [...] well after activity or exercise. Use a economics department chair on a cool setting to dry between [...] your skin and with medicines. ? Apply mgkk-ztu-ewokmkc and prescription medicines only as told by your health care provider. ? Keep all follow-up visits as told by your health care provider. This is important. This information is not intended to replace advice given to you by your health care provider. Make sure you discuss any questions you have with your health care provider. Document Revised: 06/26/2022 Document Reviewed: 06/26/2022 [employer] Patient Education ? 2022 [employer] [facility] Urology Office/Clinic Noteon 01-23-2023 Urology [...] weeks. if no improvement contact office., [id number], 175, cm, 01/23/23 14:14:00 EDT, Height/Length Dosing, 81, kg, 01/23/23 14:14:00 EDT, Weight Dosing E&M of Est. Patient Low 20-29 Min 62270 Orders: Urnls Dip Stick Auto w/o Microscopy POC [id number] Follow-up No qualifying data available f/u LUI 8 wks. keep previously scheduled f/u w PRW this fall. Patient Education Intertrigo Problem List/Past Medical History Ongoing BPH without urinary obstruction Hesitancy Hypertension Incomplete bladder emptying mild [place] (myocardial infarction) Nocturia Protein in urine Proteinuria Smoker Urethral meatal stenosis Urge incontinence Urinary incontinence without sensory awareness Urinary retention Historical No qualifying data Procedure/Surgical History Urethral dilatation (11/03/2022), TURP - Transurethral resection of prostate (08/31/2022), Cystoscopy (01/24/2022), Colonoscopy, Shoulder replacement. Medications amLODIPine 5 mg Tab Tieton Thyroid, Oral, Daily aspirin 81 mg oral [...] Dipstick: 1+ (30 mg/dl) (01/23/23 14:11:00) Specific [place] Urine Dipstick: >=1.030 (01/23/23 14:11:00) Urine Appearance Urine Dipstick: Clear (01/23/23 14:11:00) Urine Color Urine Dipstick: Yellow (01/23/23 14:11:00) Urobilinogen Urine Dipstick: Normal 0.2-1 EU/dl (01/23/23 14:11:00) pH Urine Dipstick: 5.5 (01/23/23 14:11:00) Normal [facility] Comment on above: Result Comment: Elec tronically [...] Follow these instructions at home: ? Take ydib-ige-xwbjqnf and prescription medicines only as told by [...] 10/06/2016 Document Revised: 04/23/2019 Document Reviewed: 04/23/2019 [employer] Patient Education ? 2019 [employer]. Normal [facility] Urology Office/Clinic Noteon 01-01-2023 Urology Office/Clinic Note [...] [facility] [address], [place] [address]- Additional Instructions: 6 mos with UA Patient Education Urethral Stricture I, Jessica Landrum, personally scribed for Dr. Ferguson on 01/01/2023 13:19:03. . Documentation recorded by the scribe, Jessica Landrum, accurately reflects the services(s) I performed and decisions made by me. Authenticated by Dr. Ferguson on 01/01/2023 13:24:19. Problem List/Past Medical History Ongoing BPH without urinary obstruction Hesitancy Hypertension Incomplete bladder emptying mild [place] (myocardial infarction) Nocturia Protein in urine Proteinuria Smoker Urethral meatal stenosis Urge incontinence Urinary incontinence without sensory awareness Urinary retention Historical No qualifying data Procedure/Surgical History TURP - Transurethral resection of prostate (08/31/2022), Cystoscopy (01/24/2022), Colonoscopy, Shoulder replacement. Medications amLODIPine 5 mg Tab Tieton Thyroid, Oral, Daily aspirin 81 mg oral [...] vaccine 03/ (more content not included)... Normal [facility] Comment on above: Result Comment: [...] MG Oral TabletTAKE 1 TABLET AT BEDTIME. Zjwckelpsx-ZMTN-Otxxqb ne 50-325-40 MG Oral TabletTAKE 1 TABLET [...] PM Social (more content not included)... Normal [employer] Tobacco Screening.on 023 Fall risk assessment a) No falls within the last year [facility] [address] DO Work Phone: Tobacco use status CPHS b) No M [facility] 250 DO Work Phone: Office Visit (Cardiology)on [...] (427.31) (Z86.79) Former smoker (V15.82) (Z87.891) Quit 1959's Orders SocHx: Former smoker Tobacco Use Screening; Status:Complete; Done: 02Oct2022 Patient Instructions Please bring all medicines, vitamins, and herbal supplements with you when you come to the office. Prescriptions will not be filled unless you are compliant with your follow up appointments or have a follow up appointment scheduled as per instruction of your physician. Refills should be requested at the time of your visit. 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 Izqcrprcbl-HTCC-Npxpfw ne 50-325-40 MG Oral TabletTAKE 1 TABLET [...] Caffeine us (more content not included)... Normal [employer] Tobacco Screening.on 023 Adult depression screening assessment No [facility] 250 DO Work Phone: Fall risk assessment a) No falls within the last year [facility] 250 DO Work Phone: Tobacco use status CPHS b) No M [facility] 250 DO Work Phone: Office Visit (Cardiology)on [...] in adult Healthy Weight Tips; Status:Complete; Done: [id number] Some eating tips that can help you lose weight.; Status:Complete; Done: [id number] SocHx: Former smoker Tobacco Use Screening; Status:Complete; Done: [id number] Chief Complaint NEIL WILCOX is being seen for hypertension. Current Meds Medication NameInstruction amLODIPine Besylate 10 MG Oral TabletTAKE 1 TABLET DAILY. Atorvastatin Calcium 40 MG Oral TabletTAKE 1 TABLET AT BEDTIME. Tpvzisecrt-FDXR-Xlakta ne 50-325-40 MG Oral TabletTAKE 1 TABLET [...] as previously mentioned Vitals Vital Signs Recorded: [id number] 01:07PMRecorded: [id number] 01:00PM Systolic Gqkus587, LUE Diastolic Lying84, LUE Systolic Ianjqyu516, LUE Diastolic Zgzwwdm31, LUE Systolic Oloyppww311, LUE Diastolic Fzdklrqj10, LUE Heart Rate62, L Radial Height5 ft 9 in Netdqn767 lb BMI Gimonyeuyi36.99 kg/m2 BSA Calculated1.96 Physical Exam GENERAL: Well [...] Sep 15 2022 7:52PM EST (Author) Normal [facility] Covid-19 PCR (CVDTBH)on 12-0 SARS-CoV-2 (COVID-19) RNA KEIKO+probe Ql (Unsp spec) Not detected Normal NOT DETECTED [facility] [...] for this test is supported by the [employer] Education Specialist of Health and Human Service's (HHS's) declaration [...] T SH, LIPID, CMP #### [facility] [address] [place] [address] Dr. Oscar Paulino Office Visit (Cardiology)on 08-28-2022 [...] TABLET DAILY Basic Metabolic Panel; Status:Active; Requested for:[id number]; Overweight with body mass index (BMI) of 25 to 25.9 in adult Start: Spironolactone 25 MG Oral Tablet; TAKE 1 TABLET DAILY Healthy Weight Tips; Status:Complete; Done: [id number] Some eating tips that can help you lose weight.; Status:Complete; Done: [id number] Paroxysmal atrial fibrillation with RVR Start: Eliquis [...] these medications, (more content not included)... Normal [facility] Tobacco Screening.on 022 Fall risk assessment b) One or more fall s in the last year [facility] [employer] [place] [address] DO Work Phone: Tobacco use status CP b) No [facility] [employer] [place] [address] DO Work Phone: LIPID PROFILEon 08-25-2022 CHOL-HDL RATIO NORM SEE BELOW Normal [facility] Comment on above: Result Comment: 3.3 - 4.4 LOW RISK 4.4 - 7.1 AVERAGE RISK 7.1 - 11.0 MODERATE RISK >11.0 HIGH RISK Performed By: #### T SH, LIPID, CMP #### [facility] [address] [place], [place] [address] Dr. Oscar Paulino Cholesterol [Mass/Vol] 121 mg/dL Normal <=200 Th [facility] Comment on above: Performed By: #### T SH, LIPID, CMP #### [facility] [address] [address] [address] Oscar Paulino Cholesterol in HDL [Mass/Vol] 42 mg/dL Normal 40-60 [facility] Comment on above: Performed By: #### T SH, LIPID, CMP #### [facility] [address] [address] [address] Oscar Paulino Cholesterol in LDL [Mass/Vol] 66.2 mg/dL Normal [facility] Comment on above: Performed By: #### T SH, LIPID, CMP #### [facility] [address] [address] [address] Oscar Paulino Cholesterol.total/Suzette sterol in HDL [Mass ratio] 2.9 {ratio} Normal [facility] Comment on above: Performed By: #### T SH, LIPID, CMP #### [facility] [address] [address] [address] Oscar Paulino HDL NORMAL > or = 60 mg/dl - LO W CARDIOVASCULAR RISK <40 mg/dl - HIGH CARDIOVASCULAR RISK Normal [facility] Comment on above: Performed By: #### T SH, LIPID, CMP #### [facility] [address] [address] [address] Oscar Paulino LDL CALC NORMAL SEE BELOW Normal [facility] Comment on above: Result Comment: <100 mg/dl OPTIMAL 100 - 129 mg/dl NEAR OR ABOVE OPTIMAL 130 - 159 mg/dl BORDERLINE HIGH 160 - 189 mg/dl HIGH >190 mg/dl VERY HIGH Performed By: #### T SH, LIPID, CMP #### [facility] [address] [address] [address] Oscar Paulino Triglyceride [Mass/Vol] 64 mg/dL Normal <=150 T [facility] Comment on above: Performed By: #### T SH, LIPID, CMP #### [facility] [address] [address] [address] Oscar Paulino VLDL CALC 12.8 mg/dL Normal [facility] Comment on above: Performed By: #### T SH, LIPID, CMP #### [facility] [address] [address] [address] Oscar Paulino PROF 14(COMP METB)on 022 Albumin [Mass/Vol] 3.6 g/dL Normal 3.4-5.0 [facility] Comment on above: Performed By: #### T SH, LIPID, CMP #### [facility] [address] [address] [address] Oscar Paulino Albumin/Globulin [Mass ratio] 0.8 {ratio} Normal [facility] Comment on above: Performed By: #### T SH, LIPID, CMP #### [facility] [address] [address] [address] Oscar Paulino ALP [Catalytic activity/Vol] 92 U/L Normal 46-116 [facility] Comment on above: Performed By: #### T SH, LIPID, CMP #### [facility] [address] [address] [address] Oscar Paulino ALT [Catalytic activity/Vol] 17 U/L Normal 16-63 [facility] Comment on above: Performed By: #### T SH, LIPID, CMP #### [facility] [address] [address] [address] Oscar Paulino Anion gap [Moles/Vol] 9.7 mmol/L Normal [facility] Comment on above: Performed By: #### T SH, LIPID, CMP #### [facility] [address] [address] [address] Oscar Paulino AST [Catalytic activity/Vol] 10 U/L Critically low 15-37 [facility] Comment on above: Performed By: #### T SH, LIPID, CMP #### [facility] [address] [address] [address] Oscar Paulino Bilirubin [Mass/Vol] 0.3 mg/dL Normal 0.2-1.0 [facility] Comment on above: Performed By: #### T SH, LIPID, CMP #### [facility] [address] [address] [address] Oscar Paulino Calcium [Mass/Vol] 9.4 mg/dL Normal 8.5-10.1 [facility] Comment on above: Performed By: #### T SH, LIPID, CMP #### [facility] [address] [address] [address] Oscar Paulino Chloride [Moles/Vol] 102 mmol/L Normal 98-107 [facility] Comment on above: Performed By: #### T SH, LIPID, CMP #### [facility] [address] [address] [address] Oscar Paulino CO2 [Moles/Vol] 29.1 mmol/L Normal 21.0-32.0 [facility] Comment on above: Performed By: #### T SH, LIPID, CMP #### [facility] [address] [place] [address] Dr. Oscar Paulino Creatinine [Mass/Vol] 1.08 mg/dL Normal 0.70-1.30 [facility] Comment on above: Performed By: #### T SH, LIPID, CMP #### [facility] [address] [place] [address] Dr. Oscar Paulino EGFR-AF MALAWIAN >60 Normal >=60 [facility] Comment on above: Performed By: #### T SH, LIPID, CMP #### [facility] [address] [place] [address] Dr. Oscar Paulino EGFR-NON AF MALAWIAN >60 Normal >=60 [facility] Comment on above: Performed By: #### T SH, LIPID, CMP #### [facility] [address] [place] [address] Dr. Oscar Paulino Globulin (S) [Mass/Vol] 4.3 g/dL Normal [facility] Comment on above: Performed By: #### T SH, LIPID, CMP #### [facility] [address] [place] [address] Dr. Oscar Paulino Glucose [Mass/Vol] 104 mg/dL Normal 74-106 [facility] Comment on above: Performed By: #### T SH, LIPID, CMP #### [facility] [address] [place] [address] Dr. Oscar Paulino Potassium [Moles/Vol] 3.8 mmol/L Normal 3.5-5.1 [facility] Comment on above: Performed By: #### T MANJIT, LIPID, CMP #### [facility] [address] [place] [address] Dr. Oscar Paulino Protein [Mass/Vol] 7.9 g/dL Normal 6.4-8.2 [facility] Comment on above: Performed By: #### T MANJIT, LIPID, CMP #### [facility] [address] [place] [address] Dr. Oscar Paulino Sodium [Moles/Vol] 137 mmol/L Normal 136-145 [facility] Comment on above: Performed By: #### T MANJIT LIPID, CMP #### [facility] [address] [place] [address] Dr. Oscar Paulino Urea nitrogen [Mass/Vol] 18.0 mg/dL Normal 7.0-18.0 [facility] Comment on above: Performed By: #### T MANJIT LIPID, CMP #### [facility] [address] [place] [address] Dr. Oscar Paulino Urea nitrogen/Creatinine [Mass ratio] 16.7 mg/mg Normal [facility] Comment on above: Performed By: #### T MANJIT LIPID, CMP #### [facility] [address] [place] [address] Dr. Oscar Paulino TSHon 08-25-2022 TSH 2.967 uIU/mL Normal 0.358-3.740 [facility] Comment on above: Performed By: #### T MANJIT, LIPID, CMP #### [facility] [address] [place] [address] Dr. Oscar Paulino CBC AUTO DIFFon 08-22-2022 BASO # 0.0 103/ul Normal 0.0-0.1 [facility] Comment on above: Performed By: #### T MANJIT, LIPID, CMP #### [facility] [address] [place] [address] Dr. Oscar Paulino Basophils/100 WBC (Bld) 0.3 % Normal 0.2-2.0 [facility] Comment on above: Performed By: #### T SH, LIPID, CMP #### [facility] [address] [place] [address] Dr. Oscar Paulino EO # 0.3 103/ul Normal 0.0-0.7 [facility] Comment on above: Performed By: #### T SH, LIPID, CMP #### [facility] [address] [place] [address] Dr. Oscar Paulino Eosinophils/100 WBC (Bld) 7.3 % Critically high 0.9-7.0 [facility] Comment on above: Performed By: #### T SH, LIPID, CMP #### [facility] [address] [place] [address] Dr. Oscar Paulino Erythrocyte distribution width (RBC) [Ratio] 11.9 % Normal 11.0-15.0 [facility] Comment on above: Performed By: #### T SH, LIPID, CMP #### [facility] [address] [place] [address] Dr. Oscar Paulino Hematocrit (Bld) [Volume fraction] 33.8 % Critically low 42.0-54.0 [facility] Comment on above: Performed By: #### T SH, LIPID, CMP #### [facility] [address] [place] [address] Dr. Oscar Paulino Hemoglobin (Bld) [Mass/Vol] 12.0 g/dL Critically low 14.0-18.0 [facility] Comment on above: Performed By: #### T SH, LIPID, CMP #### [facility] [address] [place] [address] Dr. Oscar Paulino IG # 0.01 10e3/ul Normal 0.00-0.03 [facility] Comment on above: Performed By: #### T SH, LIPID, CMP #### [facility] [address] [place] [address] Dr. Oscar Paulino IG % 0.3 % Normal 0.0-0.5 [facility] Comment on above: Performed By: #### T SH, LIPID, CMP #### [facility] [address] [place] [address] Dr. Oscar Paulino LYMPH # 1.4 103/ul Normal 1.2-3.8 [facility] Comment on above: Performed By: #### T SH, LIPID, CMP #### [facility] [address] [place] [address] Dr. Oscar Paulino Lymphocytes/100 WBC (Bld) 39.2 % Normal 20.5-60.0 [facility] Comment on above: Performed By: #### T SH, LIPID, CMP #### [facility] [address] [place] [address] Dr. Oscar Paulino MANUAL DIFF REQ NO Normal [facility] Comment on above: Performed By: #### T SH, LIPID, CMP #### [facility] [address] [place] [address] Dr. Oscar Paulino MCH (RBC) [Entitic mass] 36.4 pg Critically high 25.9-34.0 [facility] Comment on above: Performed By: #### T SH, LIPID, CMP #### [facility] [address] [place] [address] Dr. Oscar Paulino MCHC (RBC) [Mass/Vol] 35.5 g/dL Critically high 29.9-35.2 [facility] Comment on above: Performed By: #### T SH, LIPID, CMP #### [facility] [address] [place] [address] Dr. Oscar Paulino MCV (RBC) [Entitic vol] 102.4 fL Critically high 80.0-94 .0 [facility] Comment on above: Performed By: #### T SH, LIPID, CMP #### [facility] [address] [place] [address] Dr. Oscar Paulino MONO # 0.2 103/ul Critically low 0.3-0.8 [facility] Comment on above: Performed By: #### T SH, LIPID, CMP #### [facility] [address] [place] [address] Dr. Oscar Paulino Monocytes/100 WBC (Bld) 6.8 % Normal 1.7-12.0 [facility] Comment on above: Performed By: #### T SH, LIPID, CMP #### [facility] [address] [address] [address] Oscar Paulino NEUT # 1.6 103/ul Normal 1.4-6.5 [facility] Comment on above: Performed By: #### T SH, LIPID, CMP #### [facility] [address] [address] [address] Oscar Paulino Neutrophils/100 WBC (Bld) 46.1 % Normal 43.0-75.0 [facility] Comment on above: Performed By: #### T SH, LIPID, CMP #### [facility] [address] [address] [address] Oscar Paulino Platelet mean volume (Bld) [Entitic vol] 8.5 fL Critically low 9.5-13.5 [facility] Comment on above: Performed By: #### T SH, LIPID, CMP #### [facility] [address] [place] [address] Dr. Oscar Paulino PLT 191 103/ul Normal 150-450 [facility] Comment on above: Performed By: #### T SH, LIPID, CMP #### [facility] [address] [address] [address] Oscar Paulino RBC 3.30 106/ul Critically low 4.70-6.10 [facility] Comment on above: Performed By: #### T SH, LIPID, CMP #### [facility] [address] [place] [address] Dr. Oscar Paulino WBC 3.6 103/ul Critically low 4.0-11.0 [facility] Comment on above: Performed By: #### T SH, LIPID, CMP #### [facility] [address] [place] [address] Dr. Oscar Paulino PROF CHEM 8 (BAS METB)on Anion gap [Moles/Vol] 11.0 mmol/L Normal [facility] Comment on above: Performed By: #### B MP #### [facility] [address] [place] [address] Dr. Oscar Paulino Calcium [Mass/Vol] 9.4 mg/dL Normal 8.5-10.1 [facility] Comment on above: Performed By: #### B MP #### [facility] [address] [address] [address] Oscar Paulino Chloride [Moles/Vol] 103 mmol/L Normal 98-107 [facility] Comment on above: Performed By: #### B MP #### [facility] [address] [address] [address] Oscar Paulino CO2 [Moles/Vol] 27.7 mmol/L Normal 21.0-32.0 [facility] Comment on above: Performed By: #### B MP #### [facility] [address] [address] [address] Oscar Paulino Creatinine [Mass/Vol] 1.07 mg/dL Normal 0.70-1.30 [facility] Comment on above: Performed By: #### B MP #### [facility] [address] [place] [address] Dr. Oscar Paulino EGFR-AF MALAWIAN >60 Normal >=60 [facility] Comment on above: Performed By: #### B MP #### [facility] [address] [address] [address] Oscar Paulino EGFR-NON AF MALAWIAN >60 Normal >=60 [facility] Comment on above: Performed By: #### B MP #### [facility] [address] [place] [address] Dr. Oscar Paulino Glucose [Mass/Vol] 99 mg/dL Normal 74-106 [facility] Comment on above: Performed By: #### B MP #### [facility] [address] [address] [address] Oscar Paulino Potassium [Moles/Vol] 3.7 mmol/L Normal 3.5-5.1 [facility] Comment on above: Performed By: #### B MP #### [facility] [address] [address] [address] Oscar Paulino Sodium [Moles/Vol] 138 mmol/L Normal 136-145 [facility] Comment on above: Performed By: #### B MP #### [facility] [address] [place] [address] Dr. Oscar Paulino Urea nitrogen [Mass/Vol] 20.0 mg/dL Critically high 7.0-18.0 [facility] Comment on above: Performed By: #### B MP #### [facility] [address] [place] [address] Dr. Oscar Paulino Urea nitrogen/Creatinine [Mass ratio] 18.7 mg/mg Normal [facility] Comment on above: Performed By: #### B MP #### [facility] [address] [place] [address] Dr. Oscar Paulino PROTIMEon 08-22-2022 INR Coag (PPP) [Relative time] 1.06 {INR} Normal [facility] Comment on above: Performed By: #### P T, PTT #### [facility] [address] [place] [address] Dr. Oscar Paulino INR GUIDELINES SEE BELOW Normal [facility] Comment on above: Result Comment: ELYSIA RED INR: 2.0 - 3.0 CONDITIONS NOT LISTED BELOW 2.5 - 3.5 FOR PROSTHETIC HEART VALVE REPLACEMENT 2.5 - 3.5 RECURRENT THROMBOSIS Performed By: #### P T, PTT #### [facility] [address] [place] [address] Dr. Oscar Paulino PT Coag (PPP) [Time] 11.4 s Normal 9.0-11.6 [facility] Comment on above: Performed By: #### P T, PTT #### [facility] [address] [place] [address] Dr. Oscar Paulino PTTon 08-22-2022 aPTT Coag (Bld) [Time] 26.6 s Normal 22.3-36.2 [facility] Comment on above: Performed By: #### P T, PTT #### [facility] [address] [place] [address] Dr. Oscar Paul[facility] SARS-CoV-2 (COVID-19) RNA KEIKO+probe Ql (Unsp spec) Not detected Normal NOT DETECTED [facility] [...] for this test is supported by the [place] of Health and Human Service's (HHS's) declaration [...] consistent with SARS-CoV-2. Performed By: #### C [facility] #### [facility] [address] [place] [address] Dr. Oscar Paulino Covid-19 PCR ([facility])on SARS-CoV-2 (COVID-19) RNA KEIKO+probe Ql (Unsp spec) Not detected Normal NOT DETECTED [facility] [...] for this test is supported by the Senior Education Specialist of Health and Human Service's (HHS's) declaration [...] consistent with SARS-CoV-2. Performed By: #### C VDTBH #### [facility] [address] [place] [address] Dr. Oscar Paulino CBC AUTO DIFFon 06-28-2022 BASO # 0.0 103/ul Normal 0.0-0.1 [facility] Comment on above: Performed By: #### T SH, LIPID, CMP #### [facility] [address] [place] [address] Dr. Oscar Paulino Basophils/100 WBC (Bld) 0.4 % Normal 0.2-2.0 [facility] Comment on above: Performed By: #### T SH, LIPID, CMP #### [facility] [address] [place] [address] Dr. Oscar Paulino EO # 0.2 103/ul Normal 0.0-0.7 [facility] Comment on above: Performed By: #### T SH, LIPID, CMP #### [facility] [address] [place] [address] Dr. Oscar Paulino Eosinophils/100 WBC (Bld) 7.5 % Critically high 0.9-7.0 [facility] Comment on above: Performed By: #### T SH, LIPID, CMP #### [facility] [address] [place] [address] Dr. Oscar Paulino Erythrocyte distribution width (RBC) [Ratio] 12.3 % Normal 11.0-15.0 [facility] Comment on above: Performed By: #### T SH, LIPID, CMP #### [facility] [address] [place] [address] Dr. Oscar Paulino Hematocrit (Bld) [Volume fraction] 34.0 % Critically low 42.0-54.0 [facility] Comment on above: Performed By: #### T SH, LIPID, CMP #### [facility] [address] [place] [address] Dr. Oscar Paulino Hemoglobin (Bld) [Mass/Vol] 11.6 g/dL Critically low 14.0-18.0 [facility] Comment on above: Performed By: #### T SH, LIPID, CMP #### [facility] [address] [address] [address] Oscar Paulino IG # 0.00 10e3/ul Normal 0.00-0.03 [facility] Comment on above: Performed By: #### T SH, LIPID, CMP #### [facility] [address] [place] [address] Dr. Oscar Paulino IG % 0.0 % Normal 0.0-0.5 [facility] Comment on above: Performed By: #### T SH, LIPID, CMP #### [facility] [address] [place] [address] Dr. Oscar Paulino LYMPH # 1.0 103/ul Critically low 1.2-3.8 [facility] Comment on above: Performed By: #### T SH, LIPID, CMP #### [facility] [address] [place] [address] Dr. Oscar Paulino Lymphocytes/100 WBC (Bld) 40.1 % Normal 20.5-60.0 [facility] Comment on above: Performed By: #### T MANJIT, LIPID, CMP #### [facility] [address] [place] [address] Dr. Oscar Paulino MANUAL DIFF REQ NO Normal [facility] Comment on above: Performed By: #### T SH, LIPID, CMP #### [facility] [address] [place] [address] Dr. Oscar Paulino MCH (RBC) [Entitic mass] 35.7 pg Critically high 25.9-34.0 [facility] Comment on above: Performed By: #### T MANJIT, LIPID, CMP #### [facility] [address] [place] [address] Dr. Oscar Paulino MCHC (RBC) [Mass/Vol] 34.1 g/dL Normal 29.9-35.2 [facility] Comment on above: Performed By: #### T SH, LIPID, CMP #### [facility] [address] [place] [address] Dr. Oscar Paulino MCV (RBC) [Entitic vol] 104.6 fL Critically high 80.0-94 .0 [facility] Comment on above: Performed By: #### T SH, LIPID, CMP #### [facility] [address] [place] [address] Dr. Oscar Paulino MONO # 0.2 103/ul Critically low 0.3-0.8 [facility] Comment on above: Performed By: #### T SH, LIPID, CMP #### [facility] [address] [place] [address] Dr. Oscar Paulino Monocytes/100 WBC (Bld) 6.7 % Normal 1.7-12.0 [facility] Comment on above: Performed By: #### T SH, LIPID, CMP #### [facility] [address] [place] [address] Dr. Oscar Paulino NEUT # 1.1 103/ul Critically low 1.4-6.5 [facility] Comment on above: Performed By: #### T SH, LIPID, CMP #### [facility] [address] [place] [address] Dr. Oscar Paulino Neutrophils/100 WBC (Bld) 45.3 % Normal 43.0-75.0 [facility] Comment on above: Performed By: #### T SH, LIPID, CMP #### [facility] [facility] [address] [place] [address] Dr. Oscar Paulino Platelet mean volume (Bld) [Entitic vol] 8.4 fL Critically low 9.5-13.5 [facility] Comment on above: Performed By: #### T SH, LIPID, CMP #### [facility] [address] [place] [address] Dr. Oscar Paulino PLT 164 103/ul Normal 150-450 [facility] Comment on above: Performed By: #### T SH, LIPID, CMP #### [facility] [address] [place] [address] Dr. Oscar Paulino RBC 3.25 106/ul Critically low 4.70-6.10 [facility] Comment on above: Performed By: #### T SH, LIPID, CMP #### [facility] [address] [place] [address] Dr. Oscar Paulino WBC 2.5 103/ul Critically low 4.0-11.0 [facility] Comment on above: Performed By: #### T SH, LIPID, CMP #### [facility] [address] [address] [address] Ocsar Paulino PROF CHEM 8 (BAS METB)on Anion gap [Moles/Vol] 9.9 mmol/L Normal [facility] Comment on above: Performed By: #### B MP #### [facility] [address] [address] [address] Oscar Paulino Calcium [Mass/Vol] 9.4 mg/dL Normal 8.5-10.1 [facility] Comment on above: Performed By: #### B MP #### [facility] [address] [place] [address] Dr. Oscar Paulino Chloride [Moles/Vol] 105 mmol/L Normal 98-107 [facility] Comment on above: Performed By: #### B MP #### [facility] [address] [address] [address] Oscar Paulino CO2 [Moles/Vol] 27.3 mmol/L Normal 21.0-32.0 [facility] Comment on above: Performed By: #### B MP #### [facility] [address] [place] [address] Dr. Oscar Paulino Creatinine [Mass/Vol] 1.05 mg/dL Normal 0.70-1.30 [facility] Comment on above: Performed By: #### B MP #### [facility] [address] [address] [address] Oscar Paulino EGFR-AF MALAWIAN >60 Normal >=60 [facility] Comment on above: Performed By: #### B MP #### [facility] [address] [place] [address] Dr. Oscar Paulino EGFR-NON AF MALAWIAN >60 Normal >=60 [facility] Comment on above: Performed By: #### B MP #### [facility] [address] [place] [address] Dr. Oscar Paulino Glucose [Mass/Vol] 105 mg/dL Normal 74-106 [facility] Comment on above: Performed By: #### B MP #### [facility] [address] [address] [address] Oscar Paulino Potassium [Moles/Vol] 4.2 mmol/L Normal 3.5-5.1 [facility] Comment on above: Performed By: #### B MP #### [facility] [address] [address] [address] Oscar Paulino Sodium [Moles/Vol] 138 mmol/L Normal 136-145 [facility] Comment on above: Performed By: #### B MP #### [facility] [address] [address] [address] Oscar Paulino Urea nitrogen [Mass/Vol] 15.0 mg/dL Normal 7.0-18.0 [facility] Comment on above: Performed By: #### B MP #### [facility] [address] [address] [address] Oscar Paulino Urea nitrogen/Creatinine [Mass ratio] 14.3 mg/mg Normal [facility] Comment on above: Performed By: #### B MP #### [facility] [address] [address] [address] Oscar Paulino PROTIMEon 06-28-2022 INR Coag (PPP) [Relative time] 1.03 {INR} Normal [facility] Comment on above: Performed By: #### T MANJIT LIPID, CMP #### [facility] [address] [address] [address] Oscar Paulino INR GUIDELINES SEE BELOW Normal [facility] Comment on above: Result Comment: ELYSIA RED INR: 2.0 - 3.0 CONDITIONS NOT LISTED BELOW 2.5 - 3.5 FOR PROSTHETIC HEART VALVE REPLACEMENT 2.5 - 3.5 RECURRENT THROMBOSIS Performed By: #### T MANJIT LIPID, CMP #### [facility] [address] [place] [address] Dr. Oscar Paulino PT Coag (PPP) [Time] 11.1 s Normal 9.0-11.6 [facility] Comment on above: Performed By: #### T MANJIT LIPID, CMP #### [facility] [address] [place], [place] [address] Dr. Oscar Paulino PTTon 06-28-2022 aPTT Coag (Bld) [Time] 26.2 s Normal 22.3-36.2 Th e [facility] Comment on above: Performed By: #### T SH, LIPID, CMP #### [facility] [address] [place], [place] [address] Dr. Oscar Paulino Tobacco Screening.on 022 Adult depression screening assessment Yes -[facility] [place] [address] DO Work Phone: Adult depression screening assessment No -[facility] [place] [address] DO Work Phone: [phone] Fall risk assessment a) No falls within the last year -[facility] [place] [address] DO Work Phone: Tobacco use status CP b) No M -[facility] [employer] [address] DO Work Phone: [phone] Tobacco Screening. 1-Several days MP -[facility] [employer] [address] DO Work Phone: Tobacco Screening. 0-Not at all [facility] [address] DO Work Phone: [phone] Tobacco Screening. 2-More than half the days -[facility] [employer] [address] DO Work Phone: Tobacco Screening. Somewhat Difficult -[facility] [employer] 250 DO Work Phone: CT STROKE HEAD [...] by: EBONI PETE Date: 2022-04-08 00:27 Normal [facility] CARDIAC STRESS/REST INJE CTIONon 10-03-2021 [facility] CARDIAC STRESS/REST INJECTION Patient Name: NEIL WILCOX STUDY: MYOCARDIAL PERFUSION STRESS TEST WITH LEXISCAN Performing facility: [facility], [address] [place] [address], [address], [address] Provider: Loulou Arreguin RN, [employer] PCP: Dr. Paul Cooney Supervising provider: Erick Wise DO, [facility] INDICATION: HTN Fatigue HISTORY: Gender: M; Age: 75 y/o ; Height: 0 cm; Weight: 0 kg. High Cholesterol; HTN; Fatigue; TIA Vertigo Denies smoking. COMPARISON: No comparison. ACCESSION NUMBER(S): [id number]; [id number]; [id number] ORDERING CLINICIAN: LOULOU ARREGUIN TECHNIQUE: ONE DAY [...] Electronically signed by: MATTI MIDDLETON MD Normal [facility] Falls Risk Screeningon 08-31 Fall risk assessment a) No falls within the last year [facility] [address] DO Work Phone: Tobacco use status [facility] b) No M [facility] [place] [address] DO Work Phone: Tobacco Screening.on Fall risk assessment a) No falls within the last year [facility] [place] [address] DO Work Phone: Tobacco use status [facility] b) No M [facility] [place] [address] DO Work Phone: BASIC METABOLIC PANELon 03-24 Calcium [Mass/Vol] 8.9 mg/dL Normal 8.5-10.4 [facility] Comment on above: Result Comment: RESU LT CHECKED Anion gap [Moles/Vol] 9 mmol/L Normal 0-19 [facility] Chloride [Moles/Vol] 104 mmol/L Normal 97-107 [facility] CO2 [Moles/Vol] 24 mmol/L Normal 24-31 [facility] Creatinine [Mass/Vol] 0.9 mg/dL Normal 0.4-1.6 [facility] ESTIMATED GFR 88 mL/min/1.73 m2 Normal [facility] Comment on above: Result Comment: GFR ml/min/1.73m2 Stage ----- 90 1 60-89 2 30-59 3 15-29 4 <15 5 For -Americans, multiply EGFR result by 1.210 Calculation not validated for patients under 18 years of age. Performed at [address] [address] Glucose [Mass/Vol] 134 mg/dL High 65-99 [facility] Potassium [Moles/Vol] 3.9 mmol/L Normal 3.4-5.1 [facility] Sodium [Moles/Vol] 137 mmol/L Normal 133-145 [facility] Urea nitrogen [Mass/Vol] 13 mg/dL Normal 8-25 [facility] Urea nitrogen/Creatinine [Mass ratio] 14.4 mg/mg Normal 8-21 [facility] CBC with Diffon 04-06-2021 AB IMMATURE NEUT 0.00 K/UL Normal 0.0-0.1 [facility] ABS BASO 0.00 K/UL Normal 0.00-0.22 [facility] ABS EOS 0.02 K/UL Normal 0-0.45 [facility] ABS NEUTROPHILS 3.73 K/UL Normal 1.8-7.7 [facility] ABS.NEUT.CALCULATED 3.73 K/UL Normal [facility] Comment on above: Result Comment: Perf ormed at [address] [address] Basophils/100 WBC (Bld) 0.00 % Normal 0-1 [facility] DIFF TYPE AUTO DIFF Normal [facility] Eosinophils/100 WBC (Bld) 0.40 % Normal 0-3 [facility] Erythrocyte distribution width (RBC) [Ratio] 11.6 % Low 11.7-15.0 [facility] Hematocrit (Bld) [Volume fraction] 29.6 % Low 41-50 [facility] Hemoglobin (Bld) [Mass/Vol] 10.0 g/dL Low 13.5-16.5 [facility] Lymphocytes (Bld) [#/Vol] 0.97 10*3/uL Low 1.2-3.2 [facility] Lymphocytes/100 WBC (Bld) 19.10 % Low 20-40 [facility] MCH (RBC) [Entitic mass] 35.5 pg High 26-34 [facility] MCHC 33.8 % Normal 31-37 [facility] MCV (RBC) [Entitic vol] 105.0 fL High 80-100 [facility] MEAN PLT VOL 8.4 CU Normal 7.0-12.6 [facility] Monocytes (Bld) [#/Vol] 0.35 10*3/uL Normal 0-0.8 [facility] Monocytes/100 WBC (Bld) 6.90 % Normal 0-8 [facility] Neutrophils/100 WBC (Bld) 0.00 % Normal 0.0-1.0 [facility] Neutrophils/100 WBC (Bld) 73.60 % High 50-70 [facility] Platelets (Bld) [#/Vol] 115 10*3/uL Low 150-450 [facility] RBC (Bld) [#/Vol] 2.82 10*6/uL Low 4.5-5.5 [facility] RDW-SD 44.8 FL Normal 37.0-54.0 [facility] WBC (Bld) [#/Vol] 5.1 10*3/uL Normal 4.5-11.0 [facility] PROTHROMBIN TIMEon INR Coag (PPP) [Relative time] 1.0 {INR} Normal 0.86-1.16 [facility] Comment on above: Result Comment: INR Theraputic Range: 2.0-3.5 Performed at [address] [address] PT Coag (PPP) [Time] 11.3 s Normal 9.3-12.7 [facility] ANTICOAGULANT INFORMATION NOT REPORTED TO LABORATORY Normal [facility] PTTon 04-06-2021 aPTT Coag (Bld) [Time] 21.9 s Low 22.0-32.5 [facility] Comment on above: Result Comment: Perf ormed at [address] [address] CBC with Diffon 04-01-2021 AB IMMATURE NEUT 0.00 K/UL Normal 0.0-0.1 [facility] ABS BASO 0.02 K/UL Normal 0.00-0.22 [facility] ABS EOS 0.19 K/UL Normal 0-0.45 [facility] ABS NEUTROPHILS 1.56 K/UL Low 1.8-7.7 [facility] ABS.NEUT.CALCULATED 1.56 K/UL Normal [facility] Comment on above: Result Comment: Perf ormed at [facility] [address] [facility] [address] Basophils/100 WBC (Bld) 0.60 % Normal 0-1 [facility] DIFF TYPE AUTO DIFF Normal [facility] Eosinophils/100 WBC (Bld) 5.30 % High 0-3 [facility] Erythrocyte distribution width (RBC) [Ratio] 11.6 % Low 11.7-15.0 [facility] Hematocrit (Bld) [Volume fraction] 40.9 % Low 41-50 [facility] Hemoglobin (Bld) [Mass/Vol] 13.4 g/dL Low 13.5-16.5 [facility] Lymphocytes (Bld) [#/Vol] 1.44 10*3/uL Normal 1.2-3.2 [facility] Lymphocytes/100 WBC (Bld) 40.30 % High 20-40 [facility] MCH (RBC) [Entitic mass] 35.2 pg High 26-34 [facility] MCHC 32.8 % Normal 31-37 [facility] MCV (RBC) [Entitic vol] 107.3 fL High 80-100 [facility] MEAN PLT VOL 8.5 CU Normal 7.0-12.6 [facility] Monocytes (Bld) [#/Vol] 0.36 10*3/uL Normal 0-0.8 [facility] Monocytes/100 WBC (Bld) 10.10 % High 0-8 [facility] Neutrophils/100 WBC (Bld) 0.00 % Normal 0.0-1.0 [facility] Neutrophils/100 WBC (Bld) 43.70 % Low 50-70 [facility] Platelets (Bld) [#/Vol] 149 10*3/uL Low 150-450 [facility] RBC (Bld) [#/Vol] 3.81 10*6/uL Low 4.5-5.5 [facility] RDW-SD 46.3 FL Normal 37.0-54.0 [facility] WBC (Bld) [#/Vol] 3.6 10*3/uL Low 4.5-11.0 [facility] COMPREHENSIVE METABOLIC PANE Melvin 07-09-2021 Albumin [Mass/Vol] 4.1 g/dL Normal 3.5-5.0 [facility] Albumin/Globulin [Mass ratio] 1.2 {ratio} Low 1.5-3.0 [facility] ALP [Catalytic activity/Vol] 77 U/L Normal 35-125 [facility] ALT [Catalytic activity/Vol] 16 U/L Normal 5-40 [facility] Anion gap [Moles/Vol] 10 mmol/L Normal 0-19 [facility] AST [Catalytic activity/Vol] 18 U/L Normal 5-40 [facility] Bilirubin [Mass/Vol] 0.3 mg/dL Normal 0.1-1.2 [facility] Calcium [Mass/Vol] 10.0 mg/dL Normal 8.5-10.4 [facility] Chloride [Moles/Vol] 104 mmol/L Normal 97-107 [facility] CO2 [Moles/Vol] 27 mmol/L Normal 24-31 [facility] Creatinine [Mass/Vol] 0.9 mg/dL Normal 0.4-1.6 [facility] ESTIMATED GFR 88 mL/min/1.73 m2 Normal [facility] Comment on above: Result Comment: GFR ml/min/1.73m2 Stage ----- 90 1 60-89 2 30-59 3 15-29 4 <15 5 For -Americans, multiply EGFR result by 1.210 Calculation not validated for patients under 18 years of age. Performed at [facility] [address] [facility] [address] Globulin (S) [Mass/Vol] 3.3 g/dL Normal 1.9-3.7 [facility] Glucose [Mass/Vol] 95 mg/dL Normal 65-99 [facility] Potassium [Moles/Vol] 4.3 mmol/L Normal 3.4-5.1 [facility] Protein [Mass/Vol] 7.4 g/dL Normal 5.9-7.9 [facility] Sodium [Moles/Vol] 141 mmol/L Normal 133-145 [facility] Urea nitrogen [Mass/Vol] 16 mg/dL Normal 8-25 [facility] Urea nitrogen/Creatinine [Mass ratio] 17.8 mg/mg Normal 8-21 [facility] SARS-CoV-2,INFLUENZA A/B NUC LEIC ACID TESTon 04-01-[address] [facility] Comment on above: Result Comment: This [...] is terminated or revoked sooner. Performed at [address] [address] FLU A by PCR Negative [facility] FLU B by PCR Negative [facility] SARS-CoV-2 (COVID-19) RNA KEIKO+probe Ql (Unsp spec) Negative Normal NEG [facility] TYPE AND SCREENon 04-01-2021 TYPE AND SCREEN BLOOD COMPONENT TYPE - RED CELL GROUP Performed at [address] [address] UNITS ORDERED - 0 Performed at [address] [address] SPECIMEN EXPIRATION - 04/08/2021 Performed at [address] [address] ABO/RH(D) - A POSITIVE Performed at [id number] ANTIBODY SCREEN - NEGATIVE Performed at [address] [address] ARM BAND NUMBER - [id number] Performed at [address] [address] SURGERY DATE - [id number] Performed at [address] [address] TEST ORDERED - TYPE AND SCREEN Performed at [address] [address] PT TRANSFUSION HISTORY - BLOOD BANK RECORD SEARCH COMPLETED NO PREVIOUS RECORD NO PREVIOUS TRANSFUSIONS IN LIFETIME Performed at [address] [id number] [facility] Comment on above: Performed By: #### T [facility] #### Main Laboratory [facility] [address] [place] [address] UA-REFLEX TO CULTUREon 04-01 RBC NONE SEEN Normal 0-3 [facility] Urinalysis dipstick W Reflex Microscopic panel (U) MANUAL MICROSCOPIC URINES Normal [facility] WBC NONE SEEN Normal 0-3 [facility] OTHER Normal [facility] Comment on above: Result Comment: MUCO US Performed at [facility] [address] [facility] [address] Bacteria identified Cx Nom (U) CULTURE NOT INDICATED Normal [facility] Comment on above: Result Comment: CULT URE NOT INDICATED Performed at [facility] [address] [facility] [address] BILI Negative Normal NEG [facility] Clarity (U) CLEAR Normal [facility] Color (U) YELLOW Normal [facility] GLUC Negative Normal NEG [facility] Hemoglobin Ql (U) Negative Normal NEG [facility] KET Negative Normal NEG [facility] LEUK Negative Normal NEG [facility] NIT Negative Normal NEG [facility] pH (U) 6.5 [pH] Normal 4.6-8.0 [facility] PROT TRACE Abnormal NEG [facility] SP GRAV,URINE 1.025 Normal 1.005-1.030 [facility] URO 0.2 MG/DL Normal 0-1.0 [facility] Basophils Auto (Bld) [#/Vol] on 02-07-2021 Basophils (Bld) [#/Vol] 0.0 10*3/uL 0.0-0.2 [facility] Basophils/100 WBC Auto (Bld) on 02-07-2021 Basophils/100 WBC (Bld) 0.2 % F [facility] Blood hemoglobin measurement (mass/volume)on 02-07-2021 Hemoglobin (Bld) [Mass/Vol] 12.8 g/dL 13.0-17.0 [facility] Blood leukocytes automated c ount (number/volume)on 02-07-2021 WBC (Bld) [#/Vol] 3.5 10*3/uL 4.5-11.0 [facility] Body fluid albumin measureme nt (mass/volume)on 02-07-2021 Albumin (Body fld) [Mass/Vol] 3.7 g/dL 3.2-5.5 [facility] Cholesterol [Mass/volume] in Serum or Plasmaon 02-07-2021 Cholesterol [Mass/Vol] 127 mg/dL 140-200 Fi [facility] Comment on above: Chol less than 200 m g/dl low riskChol 201-239 mg/dl borderline riskChol 240 mg/dl and greater high risk Cholesterol in LDL Calc [Mas s/Vol]on 02-07-2021 Cholesterol in LDL [Mass/Vol] 66 mg/dL 0-100 [facility] Comment on above: LDL ATP III CLASSIFI CATIONLDL less than 100 mg/dL OptimalLDL 100-129 mg/dL Near or above optimalLDL 130-159 mg/dL Borderline highLDL 160-189 mg/dL HighLDL greater than 189 mg/dL Very high Cholesterol in VLDL Calc [Ma ss/Vol]on 02-07-2021 Cholesterol in VLDL [Mass/Vol] 10 mg/dL [facility] Creatinine and Glomerular fi ltration rate.predicted panel (S/P/Bld)on 02-07-2021 Creatinine [Mass/Vol] 0.95 mg/dL 0.64-1.27 [facility] Eosinophils Auto (Bld) [#/Vo l]on 02-07-2021 Eosinophils (Bld) [#/Vol] 0.2 10*3/uL 0.0-0.45 [facility] Eosinophils/100 WBC Auto (Bl d)on 02-07-2021 Eosinophils/100 WBC (Bld) 5.2 % [facility] Erythrocyte distribution wid th Auto (RBC) [Ratio]on 02-07-2021 Erythrocyte distribution width (RBC) [Ratio] 13.0 % 12.0-14.8 [facility] Estimated glomerular filtrat ion rate (GFR) non- Americanon 02-07-2021 GFR/1.73 sq M.predicted among non-blacks MDRD (S/P/Bld) [Vol rate/Area] > 60 mL/Min [facility] Globulin Calc (S) [Mass/Vol] on 02-07-2021 Globulin (S) [Mass/Vol] 3.6 g/dL F [facility] Hematocrit Auto (Bld) [Volum e fraction]on 02-07-2021 Hematocrit (Bld) [Volume fraction] 38.4 % 38.8-50.0 [facility] Laboratory - Hematology and Cell countson 02-07-2021 Nucleated RBC/100 WBC (Bld) [Ratio] 0.1 % 0-0.5 [facility] Lymphocytes Auto (Bld) [#/Vo l]on 02-07-2021 Lymphocytes (Bld) [#/Vol] 1.2 10*3/uL 1.00-4.8 [facility] Lymphocytes/100 WBC Auto (Bl d)on 02-07-2021 Lymphocytes/100 WBC (Bld) 33.5 % [facility] MCH Auto (RBC) [Entitic mass ]on 02-07-2021 MCH (RBC) [Entitic mass] 35.8 pg 27.5-35.2 [facility] MCHC Auto (RBC) [Mass/Vol]on 02-07-2021 MCHC (RBC) [Mass/Vol] 33.4 g/dL 32.5-35.6 [facility] MCV Auto (RBC) [Entitic vol] on 02-07-2021 MCV (RBC) [Entitic vol] 107.1 fL 83.5-101 F [facility] Monocytes Auto (Bld) [#/Vol] on 02-07-2021 Monocytes (Bld) [#/Vol] 0.4 10*3/uL 0.0-0.8 [facility] Monocytes/100 WBC Auto (Bld) on 02-07-2021 Monocytes/100 WBC (Bld) 10.3 % F [facility] Neutrophils Auto (Bld) [#/Vo l]on 02-07-2021 Neutrophils (Bld) [#/Vol] 1.8 10*3/uL 1.8-7.7 [facility] Neutrophils/100 WBC Auto (Bl d)on 02-07-2021 Neutrophils/100 WBC (Bld) 50.8 % [facility] No Panel Informationon 02-07 Estimated GFR () > 60 mL/Min [facility] Comment on above: GFR estimated refere nce range: According to KDOQI guidelines, <60 ml/min/1.73m2 is sufficient to diagnose a patient with chronic kidney disease. Pharmacy Creatinine Clearance (Chem N/A [facility] Platelet mean volume Auto (B ld) [Entitic vol]on 02-07-2021 Platelet mean volume (Bld) [Entitic vol] 6.7 fL 6.6-10.1 [facility] Platelets Auto (Bld) [#/Vol] on 02-07-2021 Platelets (Bld) [#/Vol] 220 10*3/uL 150-450 [facility] Protein [Mass/volume] in Ser um or Plasmaon 02-07-2021 Protein [Mass/Vol] 7.3 g/dL 6.1-7.9 [facility] RBC Auto (Bld) [#/Vol]on RBC (Bld) [#/Vol] 3.59 10*6/uL 3.90-5.60 [facility] Serum or plasma alanine huntley otransferase measurement without P-5'-P (enzymatic activion 02-07-2021 ALT No additional P-5'-P [Catalytic activity/Vol] 13 U/L 10-60 [facility] Serum or plasma albumin/glob ulin mass ratioon 02-07-2021 Albumin/Globulin [Mass ratio] 1.0 {ratio} [facility] Serum or plasma alkaline latoya sphatase measurement (enzymatic activity/volume)on 02-07-2021 ALP [Catalytic activity/Vol] 71 U/L 32-92 [facility] Serum or plasma aspartate am inotransferase measurement (enzymatic activity/volume)on 02-07-2021 AST [Catalytic activity/Vol] 13 U/L 10-42 [facility] Serum or plasma calcium ilana urement (mass/volume)on 02-07-2021 Calcium [Mass/Vol] 9.7 mg/dL 8.2-10.2 [facility] Serum or plasma chloride rishabh surement (moles/volume)on 02-07-2021 Chloride [Moles/Vol] 102 mmol/L 95-114 [facility] Serum or plasma glucose ilana urement (mass/volume)on 02-07-2021 Glucose [Mass/Vol] 95 mg/dL 70-100 [facility] Comment on above: ADA recommended refe rence rangeRandom Glucose Reference Range is dependent on time and content of last meal. Glucose of more than 200 mg/dL in a nonstressed, ambulatory subject supports the diagnosis of Diabetes Mellitus. Serum or plasma high density lipoprotein (HDL) cholesterol measurementon 02-07-2021 Cholesterol in HDL [Mass/Vol] 51 mg/dL 29- [facility] Comment on above: HDL CHOL ATP-III CLA SSIFICATION Cardiovascular RiskHDL > or equal to 60 mg/dL LOWHDL < 40 mg/dL HIGH Serum or plasma potassium me asurement (moles/volume)on 02-07-2021 Potassium [Moles/Vol] 4.5 mmol/L 3.5-5.1 [facility] Serum or plasma sodium measu rement (moles/volume)on 02-07-2021 Sodium [Moles/Vol] 137 mmol/L 136-146 [facility] Serum or plasma total biliru bin measurement (mass/volume)on 02-07-2021 Bilirubin [Mass/Vol] 0.6 mg/dL 0.3-1.2 [facility] Serum or plasma total carbon dioxide measurement (moles/volume)on 02-07-2021 CO2 [Moles/Vol] 24.7 mmol/L 22.0-30.0 [facility] Serum or plasma total choles terol/high density lipoprotein (HDL) cholesterol mass noni 02-07-2021 Cholesterol.total/Suzette sterol in HDL [Mass ratio] 2.5 {ratio} [facility] Serum or plasma urea nitroge n measurement (mass/volume)on 02-07-2021 Urea nitrogen [Mass/Vol] 19 mg/dL 06-16 [facility] TSH DL <= 0.005 mIU/L Qnon 0 02-07-2021 TSH Qn 1.17 m[IU]/L 0.45-5.33 [facility] Thyroxine (T4) free [Mass/vo lume] in Serum or Plasmaon 02-07-2021 Free T4 [Mass/Vol] 0.88 ng/dL 0.61-1.12 [facility] Triglyceride [Mass/volume] i n Serum or Plasmaon 02-07-2021 Triglyceride [Mass/Vol] 52 mg/dL 35-149 [facility] Comment on above: TRIG ATP III CLASSIF ICATIONTRIG less than 150 mg/dL NormalTRIG 150-199 mg/dL Borderline highTRIG 200-500 mg/dL High TRIG greater than 500 mg/dL Very highStandard traceable to the Center for Disease Conrtrol and Prevention (CDC) test method. WOUND CULTURE-TISSUEon 12-22 WOUND CULTURE-TISSUE Specimen source XXX : SHOULDER RIGHT Performed at [place] [id number] Service Cmnt XXX-Imp: HOLD FOR 2 WEEKS Microscopic observation: NO ORGANISMS SEEN 1+ WBC Bacteria identified: ANAEROBIC GRAM POSITIVE BACILLI ONE COLONY MOST CLOSELY RESEMBLING CUTIBACTERIUM (PROPIONIBACTERIUM) ACNES Performed at [facility],[id number] [place] [id number] : FINAL 12/22/2020 Normal [facility] Comment on above: Performed By: #### T [facility] #### Main Laboratory [place] [id number] CBC with Diffon 12-17-2020 AB IMMATURE NEUT 0.00 K/UL Normal 0.0-0.1 [facility] ABS BASO 0.00 K/UL Normal 0.00-0.22 [facility] ABS EOS 0.00 K/UL Normal 0-0.45 [facility] ABS NEUTROPHILS 2.47 K/UL Normal 1.8-7.7 [facility] ABS.NEUT.CALCULATED 2.47 K/UL Normal [facility] Comment on above: Result Comment: Perf ormed at [place] [id number] Basophils/100 WBC (Bld) 0.00 % Normal 0-1 [facility] DIFF TYPE AUTO DIFF Normal [facility] Eosinophils/100 WBC (Bld) 0.00 % Normal 0-3 [facility] Erythrocyte distribution width (RBC) [Ratio] 12.1 % Normal 11.7-15.0 [facility] Hematocrit (Bld) [Volume fraction] 30.6 % Low 41-50 [facility] Hemoglobin (Bld) [Mass/Vol] 10.4 g/dL Low 13.5-16.5 [facility] Lymphocytes (Bld) [#/Vol] 0.75 10*3/uL Low 1.2-3.2 [facility] Lymphocytes/100 WBC (Bld) 20.90 % Normal 20-40 [facility] MCH (RBC) [Entitic mass] 36.2 pg High 26-34 [facility] MCHC 34.0 % Normal 31-37 [facility] MCV (RBC) [Entitic vol] 106.6 fL High 80-100 [facility] MEAN PLT VOL 8.4 CU Normal 7.0-12.6 [facility] Monocytes (Bld) [#/Vol] 0.37 10*3/uL Normal 0-0.8 [facility] Monocytes/100 WBC (Bld) 10.30 % High 0-8 [facility] Neutrophils/100 WBC (Bld) 0.00 % Normal 0.0-1.0 [facility] Neutrophils/100 WBC (Bld) 68.80 % Normal 50-70 [facility] Platelets (Bld) [#/Vol] 122 10*3/uL Low 150-450 [facility] RBC (Bld) [#/Vol] 2.87 10*6/uL Low 4.5-5.5 [facility] RDW-SD 47.8 FL Normal 37.0-54.0 [facility] WBC (Bld) [#/Vol] 3.6 10*3/uL Low 4.5-11.0 [facility] COMPREHENSIVE METABOLIC PANE Melvin 12-17-2020 Albumin [Mass/Vol] 3.5 g/dL Normal 3.5-5.0 [facility] Albumin/Globulin [Mass ratio] 1.3 {ratio} Low 1.5-3.0 [facility] ALP [Catalytic activity/Vol] 63 U/L Normal 35-125 [facility] ALT [Catalytic activity/Vol] 10 U/L Normal 5-40 [facility] Comment on above: Result Comment: Perf ormed at [facility] [address] [facility] [address] Anion gap [Moles/Vol] 11 mmol/L Normal 0-19 [facility] AST [Catalytic activity/Vol] 15 U/L Normal 5-40 [facility] Bilirubin [Mass/Vol] 0.7 mg/dL Normal 0.1-1.2 [facility] Calcium [Mass/Vol] 9.0 mg/dL Normal 8.5-10.4 [facility] Chloride [Moles/Vol] 99 mmol/L Normal 97-107 [facility] CO2 [Moles/Vol] 26 mmol/L Normal 24-31 [facility] Creatinine [Mass/Vol] 0.9 mg/dL Normal 0.4-1.6 [facility] Globulin (S) [Mass/Vol] 2.7 g/dL Normal 1.9-3.7 [facility] Glucose [Mass/Vol] 129 mg/dL High 65-99 [facility] Potassium [Moles/Vol] 3.8 mmol/L Normal 3.4-5.1 [facility] Protein [Mass/Vol] 6.2 g/dL Normal 5.9-7.9 [facility] Sodium [Moles/Vol] 136 mmol/L Normal 133-145 [facility] Urea nitrogen [Mass/Vol] 13 mg/dL Normal 8-25 [facility] Urea nitrogen/Creatinine [Mass ratio] 14.4 mg/mg Normal 8-21 [facility] FREE T4on 12-09-2020 Free T4 [Mass/Vol] 1.2 ng/dL Normal 0.9-1.7 [facility] Comment on above: Result Comment: Perf ormed at [address] [address] Performed By: #### T [facility] #### [facility] [address] [address] CBC with Diffon 12-08-2020 ABS NEUTROPHILS 1.38 K/UL Low 1.8-7.7 [facility] Comment on above: Result Comment: DARELL ECTED ON 12/08 AT 1254: PREVIOUSLY REPORTED 1.39 PLATELET ESTIMATE ADEQUATE Normal [facility] RBC morphology finding Nom (Bld) CONSISTENT WITH PERIPHERAL SMEAR Normal [facility] WBC MORPHOLOGY SMEAR REVIEWED AND FOUND CONSISTENT WITH AUTOMATED DIFFERENTIAL Normal [facility] AB IMMATURE NEUT 0.00 K/UL Normal 0.0-0.1 [facility] ABS BASO 0.01 K/UL Normal 0.00-0.22 [facility] ABS EOS 0.20 K/UL Normal 0-0.45 [facility] ABS.NEUT.CALCULATED 1.39 K/UL Normal [facility] Comment on above: Result Comment: Perf ormed at [facility] [address] [facility] [address] Basophils/100 WBC (Bld) 0.30 % Normal 0-1 [facility] DIFF TYPE AUTO DIFF Normal [facility] Eosinophils/100 WBC (Bld) 6.40 % High 0-3 [facility] Erythrocyte distribution width (RBC) [Ratio] 11.9 % Normal 11.7-15.0 [facility] Hematocrit (Bld) [Volume fraction] 40.0 % Low 41-50 [facility] Hemoglobin (Bld) [Mass/Vol] 13.5 g/dL Normal 13.5-16.5 [facility] Lymphocytes (Bld) [#/Vol] 1.20 10*3/uL Normal 1.2-3.2 [facility] Lymphocytes/100 WBC (Bld) 38.60 % Normal 20-40 [facility] MCH (RBC) [Entitic mass] 36.0 pg High 26-34 [facility] MCHC 33.8 % Normal 31-37 [facility] MCV (RBC) [Entitic vol] 106.7 fL High 80-100 [facility] MEAN PLT VOL 8.5 CU Normal 7.0-12.6 [facility] Monocytes (Bld) [#/Vol] 0.31 10*3/uL Normal 0-0.8 [facility] Monocytes/100 WBC (Bld) 10.00 % High 0-8 [facility] Neutrophils/100 WBC (Bld) 0.00 % Normal 0.0-1.0 [facility] Neutrophils/100 WBC (Bld) 44.70 % Low 50-70 [facility] Platelets (Bld) [#/Vol] 168 10*3/uL Normal 150-450 [facility] RBC (Bld) [#/Vol] 3.75 10*6/uL Low 4.5-5.5 [facility] RDW-SD 46.6 FL Normal 37.0-54.0 [facility] WBC (Bld) [#/Vol] 3.1 10*3/uL Low 4.5-11.0 [facility] COMPREHENSIVE METABOLIC PANE Melvin 12-08-2020 Albumin [Mass/Vol] 4.2 g/dL Normal 3.5-5.0 [facility] Albumin/Globulin [Mass ratio] 1.3 {ratio} Low 1.5-3.0 [facility] ALP [Catalytic activity/Vol] 77 U/L Normal 35-125 [facility] ALT [Catalytic activity/Vol] 10 U/L Normal 5-40 [facility] Anion gap [Moles/Vol] 10 mmol/L Normal 0-19 [facility] AST [Catalytic activity/Vol] 16 U/L Normal 5-40 [facility] Bilirubin [Mass/Vol] 0.7 mg/dL Normal 0.1-1.2 [facility] Calcium [Mass/Vol] 9.6 mg/dL Normal 8.5-10.4 [facility] Chloride [Moles/Vol] 102 mmol/L Normal 97-107 [facility] CO2 [Moles/Vol] 28 mmol/L Normal 24-31 [facility] Creatinine [Mass/Vol] 1.1 mg/dL Normal 0.4-1.6 [facility] ESTIMATED GFR 70 mL/min/1.73 m2 Normal [facility] Comment on above: Result Comment: GFR ml/min/1.73m2 Stage ----- 90 1 60-89 2 30-59 3 15-29 4 <15 5 For -Americans, multiply EGFR result by 1.210 Calculation not validated for patients under 18 years of age. Performed at [facility] [address] [facility] [address] Globulin (S) [Mass/Vol] 3.2 g/dL Normal 1.9-3.7 [facility] Glucose [Mass/Vol] 94 mg/dL Normal 65-99 [facility] Potassium [Moles/Vol] 4.1 mmol/L Normal 3.4-5.1 [facility] Protein [Mass/Vol] 7.4 g/dL Normal 5.9-7.9 [facility] Sodium [Moles/Vol] 140 mmol/L Normal 133-145 [facility] Urea nitrogen [Mass/Vol] 15 mg/dL Normal 8-25 [facility] Urea nitrogen/Creatinine [Mass ratio] 13.6 mg/mg Normal 8-21 [facility] EKGon 12-08-2020 Electrocardiogram EKG Ventricular Rate : 57 BPM Atrial Rate : 57 BPM P-R Interval : 174 ms QRS Duration : 102 ms Q-T Interval : 430 ms QTC Calculation(Bazett) : 418 ms Calculated P Polo : 74 degrees Calculated R Polo : 56 degrees Calculated T Polo : 69 degrees Diagnosis:Sinus bradycardia with Premature atrial complexes and Premature ventricular complexes or Fusion complexes Otherwise normal ECG When compared with ECG of 08-DEC-2020 11:04, Premature atrial complexes are now Present Confirmed by XIN TONG DO ([id number]) on 12/10/2020 9:36:45 AM [facility] Electrocardiogram EKG Ventricular Rate : 51 BPM Atrial Rate : 51 BPM P-R Interval : 186 ms QRS Duration : 102 ms Q-T Interval : 432 ms QTC Calculation(Bazett) : 398 ms Calculated P Polo : 70 degrees Calculated R Polo : 44 degrees Calculated T Polo : 63 degrees Diagnosis:Sinus bradycardia with occasional Premature ventricular complexes Otherwise normal ECG No previous ECGs available Confirmed by XIN TONG DO ([id number]) on 12/10/2020 9:37:02 AM [facility] SARS-CoV-2,INFLUENZA A/B NUC LEIC ACID TESTon 12-08-2020 EUA DISCLAIMER [facility] Comment on above: Result Comment: [...] terminated or revoked sooner. Performed at [facility] [address] [facility] [address] FLU A by PCR Negative [facility] FLU B by PCR Negative [facility] SARS-CoV-2 (COVID-19) RNA KEIKO+probe Ql (Unsp spec) Negative Normal NEG [facility] TSHon 12-08-2020 TSH 0.24 MIU/L Low 0.27-4.20 [facility] Comment on above: Result Comment: Perf ormed at [address] [address] Performed By: #### T [facility] ####Main [place] [address] [place] [address] UA-REFLEX TO CULTUREon 12-08 RBC OCC Normal 0-3 [facility] Urinalysis dipstick W Reflex Microscopic panel (U) MANUAL MICROSCOPIC URINES Normal [facility] WBC OCC Normal 0-3 [facility] OTHER Normal [facility] Comment on above: Result Comment: PRES ENT MUCOUS Performed at [place] [id number] [facility] [address] Bacteria identified Cx Nom (U) CULTURE NOT INDICATED Normal [facility] Comment on above: Result Comment: CULT URE NOT INDICATED Performed at [address] [address] BILI Negative Normal NEG [facility] Clarity (U) CLEAR Normal [facility] Color (U) YELLOW Normal [facility] GLUC Negative Normal NEG [facility] Hemoglobin Ql (U) Negative Normal NEG [facility] KET Negative Normal NEG [facility] LEUK Negative Normal NEG [facility] NIT Negative Normal NEG [facility] pH (U) 6.0 [pH] Normal 4.6-8.0 [facility] PROT TRACE Abnormal NEG [facility] SP GRAV,URINE 1.025 Normal 1.005-1.030 [facility] URO 0.2 MG/DL Normal 0-1.0 [facility] B12/Folate Panelon Cobalamin (Vitamin B12) [Mass/Vol] 507 pg/mL Normal 232-1245 [facility] Comment on above: Performed By: #### F T4, B12FOL, TSHX #### [employer] [address] [place], [place] [id number] Manufacturing Automation Engineer: Juan F Dominguez MD Folic Acid 10.6 ng/mL Normal >4.8 [facility] Comment on above: Performed By: #### F T4, B12FOL, TSHX #### [employer] [address] [place], [place] [id number] Manufacturing Automation Engineer: Juan F Dominguez MD T4, Freeon 10-13-2020 Thyroxine, Free 0.97 ng/dL 0.93 - 1.7 ng/dL [place], [place] TSH w/reflex to FT4on 2020 TSH Qn 0.04 m[IU]/L Low 0.30-5.00 [facility] Comment on above: Performed By: #### F T4, B12FOL, TSHX #### [facility] [employer] [address] [place] [address] [id number] Manufacturing Automation Engineer: Juan F Dominguez MD TSH with Reflexon 10-13-2020 Interpretation and review of laboratory results Abnormal [place], [place] TSH Qn 0.04 m[IU]/L Low [place], [place] Thyroxine, Freeon 10-13-2020 Thyroxine, Free 0.97 ng/dL Normal 0.93-1.70 [facility] Comment on above: Performed By: #### F T4, B12FOL, TSHX #### [facility] [employer] [address] [place] [address] [id number] Manufacturing Automation Engineer: Juan F Dominguez MD Vitamin B12 & Folateon 10-13 Cobalamin (Vitamin B12) [Mass/Vol] 507 pg/mL 232 - 1245 pg/mL [place], [place] Folate 10.6 ng/mL >4.8 [place], [place] C REACTIVE PROTEINon 021 C REACTIVE PROTEIN 0.3 MG/DL Normal 0-2.0 [facility] Comment on above: Result Comment: LESS THAN Performed at [address] [address] Performed By: #### C RP #### Main Laboratory [address] [address] CBC with Diffon 10-11-2020 AB IMMATURE NEUT 0.00 K/UL Normal 0.0-0.1 [facility] ABS BASO 0.02 K/UL Normal 0.00-0.22 [facility] ABS EOS 0.21 K/UL Normal 0-0.45 [facility] ABS NEUTROPHILS 1.64 K/UL Low 1.8-7.7 [facility] ABS.NEUT.CALCULATED 1.64 K/UL Normal [facility] Comment on above: Result Comment: Perf ormed at [facility] [address] [facility] [facility] [address] Basophils/100 WBC (Bld) 0.50 % Normal 0-1 [facility] DIFF TYPE AUTO DIFF Normal [facility] Eosinophils/100 WBC (Bld) 5.10 % High 0-3 [facility] Erythrocyte distribution width (RBC) [Ratio] 11.3 % Low 11.7-15.0 [facility] Hematocrit (Bld) [Volume fraction] 39.6 % Low 41-50 [facility] Hemoglobin (Bld) [Mass/Vol] 13.6 g/dL Normal 13.5-16.5 [facility] Lymphocytes (Bld) [#/Vol] 1.74 10*3/uL Normal 1.2-3.2 [facility] Lymphocytes/100 WBC (Bld) 42.00 % High 20-40 [facility] MCH (RBC) [Entitic mass] 36.2 pg High 26-34 [facility] MCHC 34.3 % Normal 31-37 [facility] MCV (RBC) [Entitic vol] 105.3 fL High 80-100 [facility] MEAN PLT VOL 8.4 CU Normal 7.0-12.6 [facility] Monocytes (Bld) [#/Vol] 0.53 10*3/uL Normal 0-0.8 [facility] Monocytes/100 WBC (Bld) 12.80 % High 0-8 [facility] Neutrophils/100 WBC (Bld) 0.00 % Normal 0.0-1.0 [facility] Neutrophils/100 WBC (Bld) 39.60 % Low 50-70 [facility] Platelets (Bld) [#/Vol] 186 10*3/uL Normal 150-450 [facility] RBC (Bld) [#/Vol] 3.76 10*6/uL Low 4.5-5.5 [facility] RDW-SD 44.8 FL Normal 37.0-54.0 [facility] WBC (Bld) [#/Vol] 4.1 10*3/uL Low 4.5-11.0 [facility] SEDIMENTATION RATEon 021 SEDIMENTATION RATE 50 MM/HR High 0-12 [facility] Comment on above: Result Comment: Perf ormed at [facility] [address] [address] [facility] [address] Automated basophil %on 10-07 Basophils/100 WBC (Bld) 0.2 % F [facility] Automated basophil counton 0 2020 Basophils (Bld) [#/Vol] 0.0 10*3/uL 0.0-0.2 [facility] Automated blood lymphocyte c ount (number/volume)on 2020 Lymphocytes (Bld) [#/Vol] 1.2 10*3/uL 1.00-4.8 [facility] Automated blood lymphocyte c ount as percentage of total leukocyteson 2020 Lymphocytes/100 WBC (Bld) 25.0 % [facility] Automated blood monocyte cou nton 2020 Monocytes (Bld) [#/Vol] 0.6 10*3/uL 0.0-0.8 [facility] Automated blood platelet cou nt (count/volume)on 2020 Platelets (Bld) [#/Vol] 177 10*3/uL 150-450 [facility] Automated blood platelet rishabh n volume measurementon 2020 Platelet mean volume (Bld) [Entitic vol] 6.9 fL 6.6-10.1 [facility] Automated eosinophil %on Eosinophils/100 WBC (Bld) 3.8 % [facility] Automated eosinophil counton 2020 Eosinophils (Bld) [#/Vol] 0.2 10*3/uL 0.0-0.45 [facility] Automated erythrocyte distri bution width ratioon 2020 Erythrocyte distribution width (RBC) [Ratio] 12.3 % 12.0-14.8 [facility] Automated erythrocyte mean c orpuscular hemoglobin (mass per erythrocyte)on 2020 MCH (RBC) [Entitic mass] 35.9 pg 27.5-35.2 [facility] Automated erythrocyte mean c orpuscular hemoglobin concentration measurement (mass/volon 2020 MCHC (RBC) [Mass/Vol] 34.2 g/dL 32.5-35.6 [facility] Automated erythrocyte mean c orpuscular volumeon 2020 MCV (RBC) [Entitic vol] 105.1 fL 83.5-101 F [facility] Automated monocyte %on 10-07 Monocytes/100 WBC (Bld) 12.5 % F [facility] Automated neutrophil %on Neutrophils/100 WBC (Bld) 58.5 % [facility] Blood erythrocytes automated count (number/volume)on 2020 RBC (Bld) [#/Vol] 3.74 10*6/uL 3.90-5.60 [facility] Blood hemoglobin measurement (mass/volume)on 2020 Hemoglobin (Bld) [Mass/Vol] 13.4 g/dL 13.0-17.0 [facility] Blood leukocytes automated c ount (number/volume)on 2020 WBC (Bld) [#/Vol] 4.6 10*3/uL 4.5-11.0 [facility] Blood neutrophil count by au tomated method (number/volume)on 2020 Neutrophils (Bld) [#/Vol] 2.7 10*3/uL 1.8-7.7 [facility] Body fluid albumin measureme nt (mass/volume)on 2020 Albumin (Body fld) [Mass/Vol] 3.6 g/dL 3.2-5.5 [facility] Cholesterol [Mass/volume] in Serum or Plasmaon 2020 Cholesterol [Mass/Vol] 93 mg/dL 140-200 [facility] Comment on above: Chol less than 200 m g/dl low riskChol 201-239 mg/dl borderline riskChol 240 mg/dl and greater high risk Cholesterol in LDL [Mass/vol ume] in Serum or Plasma by calculationon 2020 Cholesterol in LDL [Mass/Vol] 42 mg/dL 0-100 [facility] Comment on above: LDL ATP III CLASSIFI CATIONLDL less than 100 mg/dL OptimalLDL 100-129 mg/dL Near or above optimalLDL 130-159 mg/dL Borderline highLDL 160-189 mg/dL HighLDL greater than 189 mg/dL Very high Cholesterol in VLDL [Mass/vo lume] in Serum or Plasma by calculationon 2020 Cholesterol in VLDL [Mass/Vol] 7 mg/dL [facility] Estimated glomerular filtrat ion rate (GFR) non- Americanon 2020 GFR/1.73 sq M predicted among non-blacks MDRD (S/P/Bld) [Vol rate/Area] 51 mL/min/{1.73_m2} [facility] Hematocrit [Volume Fraction] of Blood by Automated counton 2020 Hematocrit (Bld) [Volume fraction] 39.3 % 38.8-50.0 [facility] Otheron 2020 GFR/1.73 sq M.predicted MDRD (S/P/Bld) [Vol rate/Area] mL/min/{1.73_m2} [facility] Comment on above: GFR estimated refere nce range: According to KDOQI guidelines, <60 ml/min/1.73m2 is sufficient to diagnose a patient with chronic kidney disease. Nucleated RBC/100 WBC (Bld) [Ratio] 0.0 % 0-0.5 [facility] Creatinine Clearance (Chem N/A [facility] Protein [Mass/volume] in Ser um or Plasmaon 2020 Protein [Mass/Vol] 7.3 g/dL 6.1-7.9 [facility] Serum globulin measurement b y calculation (mass/volume)on 2020 Globulin (S) [Mass/Vol] 3.7 g/dL F [facility] Serum or plasma alanine huntley otransferase measurement without P-5'-P (enzymatic activion 2020 ALT No additional P-5'-P [Catalytic activity/Vol] 23 U/L 10-60 [facility] Serum or plasma albumin/glob ulin mass ratioon 2020 Albumin/Globulin [Mass ratio] 1.0 {ratio} [facility] Serum or plasma alkaline latoya sphatase measurement (enzymatic activity/volume)on 2020 ALP [Catalytic activity/Vol] 63 U/L 32-92 [facility] Serum or plasma aspartate am inotransferase measurement (enzymatic activity/volume)on 2020 AST [Catalytic activity/Vol] 18 U/L 10-42 [facility] Serum or plasma calcium ilana urement (mass/volume)on 2020 Calcium [Mass/Vol] 9.8 mg/dL 8.2-10.2 [facility] Serum or plasma chloride rishabh surement (moles/volume)on 2020 Chloride [Moles/Vol] 104 mmol/L 95-114 [facility] Serum or plasma creatinine m easurement with calculation of estimated glomerular filtron 2020 Creatinine [Mass/Vol] 1.37 mg/dL 0.64-1.27 [facility] Serum or plasma glucose ilana urement (mass/volume)on 2020 Glucose [Mass/Vol] 116 mg/dL 70-100 [facility] Comment on above: ADA recommended refe rence rangeRandom Glucose Reference Range is dependent on time and content of last meal. Glucose of more than 200 mg/dL in a nonstressed, ambulatory subject supports the diagnosis of Diabetes Mellitus. Serum or plasma high density lipoprotein (HDL) cholesterol measurementon 2020 Cholesterol in HDL [Mass/Vol] 43 mg/dL 29-71 [facility] Comment on above: HDL CHOL ATP-III CLA SSIFICATION Cardiovascular RiskHDL > or equal to 60 mg/dL LOWHDL < 40 mg/dL HIGH Serum or plasma potassium me asurement (moles/volume)on 2020 Potassium [Moles/Vol] 4.1 mmol/L 3.5-5.1 [facility] Serum or plasma sodium measu rement (moles/volume)on 2020 Sodium [Moles/Vol] 140 mmol/L 136-146 [facility] Serum or plasma total biliru bin measurement (mass/volume)on 2020 Bilirubin [Mass/Vol] 0.7 mg/dL 0.3-1.2 [facility] Serum or plasma total carbon dioxide measurement (moles/volume)on 2020 CO2 [Moles/Vol] 24.4 mmol/L 22.0-30.0 [facility] Serum or plasma total choles terol/high density lipoprotein (HDL) cholesterol mass noni 2020 Cholesterol.total/Suzette sterol in HDL [Mass ratio] 2.2 {ratio} [facility] Serum or plasma urea nitroge n measurement (mass/volume)on 2020 Urea nitrogen [Mass/Vol] 24 mg/dL 9-23 [facility] Triglyceride [Mass/volume] i n Serum or Plasmaon 2020 Triglyceride [Mass/Vol] 39 mg/dL 35-149 [facility] Comment on above: TRIG ATP III [...] Jeffery Caceres MD 02/04/20 Final result Normal [facility] 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 [facility], [place] EXAMINATION: CT OF T HE HEAD WITHOUT [...] of the visualized skull or soft tissues. [place], [place], pn Incoming Radiant Results From [facility] - 02/04/2020 4:14 PM EDT EXAMINATION: CT [...] cerebral artery infarct without evidence for hemorrhage. [place], [place] EVENT MONITORon 01-07-[address] [id number] EVENT MONITOR PATIENT NAME: NEIL WILCOX : 1945 MED REC NO: [id number] ROOM: [facility] ACCOUNT NO: [id number] ADMIT DATE: 12/21/2019 PROVIDER: Sabine Schrader EVENT [...] 4. Rare PVC's with couplets. SABINE SCHRADER /BAN Doc#: Unknown Normal [facility] CTA HEAD NECK W CONTRASTon 0 12-22-2019 [...] Wilton Parekh MD 12/22/19 Final result Normal [facility] Comp Metabolic Pr/rfx MGon 0 12-22-2019 AST [Catalytic activity/Vol] 21 U/L Normal <40 [facility] Comment on above: Performed By: #### C MPX, GLYHGB, LIPR, LACTIC, CDP #### [facility] [address] [place] [address] Manufacturing Automation Engineer: Juan F Dominguez MD Drug Scr, Abuse, Uron 2019 Amphetamine(s),Ur Negative Normal NEG [facility] Comment on above: Result Comment: (Positive cutoff 1000 ng/mL) Performed By: #### D ALEXIS SCHULZ, UMICAO #### [facility] [place] [address] Manufacturing Automation Engineer: Juan F Dominguez MD Barbiturate(s),Ur Positive Abnormal NEG [facility] Comment on above: Result Comment: (Positive cutoff 200 ng/mL) Performed By: #### D AU, UA, UMICAO #### [facility] [place] [address] Manufacturing Automation Engineer: Juan F Dominguez MD Base excess Calc (Bld) [Moles/Vol] Negative Normal NEG [facility] Comment on above: Result Comment: (Positive cutoff 300 ng/mL) Performed By: #### D AU, UA, UMICAO #### [facility] [address] [place] [address] Manufacturing Automation Engineer: Juan F Dominguez MD Benzodiazepine(s) Negative Normal NEG [facility] Comment on above: Result Comment: (Positive cutoff 200 ng/mL) Performed By: #### Artem SCHULZ UA, UMICAO #### [facility] [address] [place] [address] Manufacturing Automation Engineer: Juan F Dominguez MD Cannabinoid(s),Ur Negative Normal NEG [facility] Comment on above: Result Comment: (Positive cutoff 50 ng/mL) Performed By: #### Artem SCHULZ UA, UMICAO #### [facility] [address] [place] [address] Manufacturing Automation Engineer: Juan F Dominguez MD Interpretive Info Assay provides medic al screening only. The absence of expected drug(s) and/or Normal [facility] Comment on above: Result Comment: meta bolite(s) may indicate diluted or adulterated urine, limitations of testing or timing of collection. Testing for legal purposes should be confirmed by another method. To request confirmation of test result, please call the lab within 7 days of sample submission. Performed By: #### Artem AU UA, UMICAO #### [facility] [address] [place] [address] Manufacturing Automation Engineer: Juan F Dominguez MD Methadone Ql (U) Negative Normal NEG [facility] Comment on above: Result Comment: (Positive cutoff 300 ng/mL) Performed By: #### Artem AU, UA, UMICAO #### [facility] [address] [place] [address] Manufacturing Automation Engineer: Juan F Dominguez MD Opiate(s), Ur Negative Normal NEG [facility] Comment on above: Result Comment: (Positive cutoff 300 ng/mL) Performed By: #### D ZEUS UA, UMICAO #### [facility] [address] [place] [address] Manufacturing Automation Engineer: Juan F Dominguez MD Oxycodone, Urine Negative Normal NEG [facility] Comment on above: Result Comment: (Positive cutoff 100 ng/mL) Performed By: #### ALEXIS MIRANDA, UMICAO #### [facility] [address] [place] [address] Manufacturing Automation Engineer: Juan F Dominguez MD Phencyclidine, Ur Negative Normal NEG [facility] Comment on above: Result Comment: (Positive cutoff 25 ng/mL) Performed By: #### Artem SCHULZ UA, UMICAO #### [facility] [address] [place] [address] Manufacturing Automation Engineer: Juan F Dominguez MD Hemoglobin A1Con 12-22-2019 HbA1c (Bld) [Mass fraction] 120 mg/dL Normal [facility] Comment on above: Result Comment: The ADA and AACC recommend providing the estimated average glucose result to permit better patient understanding of their HBA1c result. Performed By: #### ALEXIS MIRANDA, UMICAO #### [facility] [address] [place] [address] Manufacturing Automation Engineer: Juan F Dominguez MD HbA1c (Bld) [Mass fraction] 5.8 % Normal 4.0-6.0 [facility] Comment on above: Performed By: #### ALEXIS MIRANDA, UMICAO #### [facility] [address] [place] [address] Manufacturing Automation Engineer: Juan F Dominguez MD Lactic Acidon 12-22-2019 Lactate [Moles/Vol] 1.2 mmol/L Normal 0.7-2.1 [facility] Comment on above: Performed By: #### D ALEXIS SCHULZ, UMICAO #### [facility] [address] [place] [address] [phone] Manufacturing Automation Engineer: Juan F Dominguez MD Lipid Profileon 12-22-2019 Cholesterol [Mass/Vol] 137 mg/dL Normal <200 [facility] Comment on above: Result Comment: Cholesterol Guidelines: <200 Desirable 200-240 Borderline >240 Undesirable Performed By: #### ALEXIS MIRANDA, UMICAO #### [facility] [address] [place] [address] Manufacturing Automation Engineer: Juan F Dominguez MD Cholesterol in HDL [Mass/Vol] 53 mg/dL Normal >40 [facility] Comment on above: Result Comment: HDL Guidelines: <40 Undesirable 40-59 Borderline >59 Desirable Performed By: #### ALEXIS MIRANDA, UMICAO #### [facility] [employer] [address] [place] [address] Manufacturing Automation Engineer: Juan F Dominguez MD Cholesterol in LDL [Mass/Vol] 73 mg/dL Normal 0-130 [facility] Comment on above: Result Comment: LDL Guidelines: <100 Desirable 100-129 Near to/above Desirable 130-159 Borderline >159 Undesirable Direct (measured) LDL and calculated LDL are not interchangeable tests. Performed By: #### ALEXIS MIRANDA, UMICAO #### [facility] [address] [place] [address] Manufacturing Automation Engineer: Juan F Dominguez MD Cholesterol.total/Suzette sterol in HDL [Mass ratio] 2.6 {ratio} Normal <5 [facility] Comment on above: Performed By: #### ALEXIS MIRANDA, UMICAO #### [facility] [employer] [address] [place] [address] [phone] Manufacturing Automation Engineer: Juan F Dominguez MD Triglyceride [Mass/Vol] 57 mg/dL Normal <150 [facility] Comment on above: Result Comment: Triglyceride Guidelines: <150 Desirable 150-199 Borderline 200-499 High >499 Very high Based on AHA Guidelines for fasting triglyceride, June 2012. Performed By: #### Artem AU, UA, UMICAO #### [facility] [address] [place] [address] Manufacturing Automation Engineer: Juan F Dominguez MD Urinalysis, Routineon 2019 Acetoacetic Acid,Ur TRACE Abnormal NEG [facility] Comment on above: Performed By: #### Artem AU, UA, UMICAO #### [facility] [address] [place] [address] Manufacturing Automation Engineer: Juan F Dominguez MD Bilirubin, SemiQt,Ur Negative Normal NEG [facility] Comment on above: Performed By: #### Artem AU, UA, UMICAO #### [facility] [address] [place] [address] Manufacturing Automation Engineer: Juan F Dominguez MD Color (U) YELLOW Normal YEL [facility] Comment on above: Performed By: #### Artem AU, UA, UMICAO #### [facility] [address] [place] [address] Manufacturing Automation Engineer: Juan F Dominguez MD Glucose Ql (U) Negative Normal [facility] Comment on above: Performed By: #### Artem AU, UA, UMICAO #### [facility] [address] [place] [address] Manufacturing Automation Engineer: Juan F Dominguez MD Hemoglobin, Ur Negative Normal NEG [facility] Comment on above: Performed By: #### Artem AU, UA, UMICAO #### [facility] [address] [place] [address] Manufacturing Automation Engineer: Juan F Dominguez MD Leukocyte esterase Test strip Ql (U) Negative Normal [facility] Comment on above: Performed By: #### Artem AU, UA, UMICAO #### [facility] [address] [place] [address] Manufacturing Automation Engineer: Juan F Dominguez MD Nitrite,Ur Negative Normal NEG [facility] Comment on above: Performed By: #### Artem SCHULZ UA, UMICAO #### [address] [address] Manufacturing Automation Engineer: Juan F Dominguez MD pH (U) 5.0 [pH] Normal 5.0-8.0 [facility] Comment on above: Performed By: #### Artem SCHULZ UA, UMICAO #### [facility] [address] [place] [address] Manufacturing Automation Engineer: Juan F Dominguez MD Protein Ql (U) 1+ Abnormal NEG [facility] Comment on above: Performed By: #### Artem SCHULZ UA, UMICAO #### [address] [address] Manufacturing Automation Engineer: Juan F Dominguez MD Specific gravity (U) [Rel density] 1.025 Normal 1.005-1.030 [facility] Comment on above: Performed By: #### Artem SCHULZ UA, UMICAO #### [address] [address] Manufacturing Automation Engineer: Juan F Dominguez MD Turbidity CLEAR Normal CLEAR [facility] Comment on above: Performed By: #### Artem SCHULZ UA, UMICAO #### [address] [address] Manufacturing Automation Engineer: Juan F Dominguez MD Urobilinogen,Ur Normal Normal NORM [facility] Comment on above: Performed By: #### Artem SCHULZ UA, UMICAO #### [address] [address] Manufacturing Automation Engineer: Juan F Dominguez MD Urinalysis,Microon 0 ----- Normal [facility] Comment on above: Performed By: #### Artem AU UA, UMICAO #### [address] [address] Manufacturing Automation Engineer: Juan F Dominguez MD Casts LM.LPF (Urine sed) [#/Area] 2 TO 5 HYALINE Normal 0-8 [facility] Comment on above: Result Comment: Refe rence range defined for non-centrifuged specimen. Performed By: #### Artem SCHULZ UA, UMICAO #### [address] [address] Manufacturing Automation Engineer: Juan F Dominguez MD Epithelial cells LM.HPF (Urine sed) [#/Area] 0 TO 2 Normal 0-5 [facility] Comment on above: Performed By: #### Artem SCHULZ UA, UMICAO #### [address] [address] Manufacturing Automation Engineer: Juan F Dominguez MD RBC (U) [#/Vol] 0 TO 2 Normal 0-4 [facility] Comment on above: Result Comment: Refe rence range defined for non-centrifuged specimen. Performed By: #### Artem SCHULZ UA, UMICAO #### [address] [address] Manufacturing Automation Engineer: Juan F Dominguez MD WBC (U) [#/Vol] 2 TO 5 Normal 0-5 [facility] Comment on above: Performed By: #### Artem SCHULZ UA, UMICAO #### [address] [address] Manufacturing Automation Engineer: Juan F Dominguez MD CBC with Diffon 12-21-2019 Abs. Basophil <0.03 Normal 0.00-0.20 [facility] Comment on above: Performed By: #### C MPX, GLYHGB, LIPR, LACTIC, CDP #### [address] [address] Manufacturing Automation Engineer: Juan F Dominguez MD Abs.Imm.Granulocyte <0.03 Normal 0.00-0.30 [facility] Comment on above: Performed By: #### C MPX, GLYHGB, LIPR, LACTIC, CDP #### [address] [address] Manufacturing Automation Engineer: Juan F Dominguez MD Abs.Neutrophil (Seg) 2.41 k/uL Normal 1.50-8.10 [facility] Comment on above: Performed By: #### C MPX, GLYHGB, LIPR, LACTIC, CDP #### [address] [address] Manufacturing Automation Engineer: Juan F Dominguez MD Basophils/100 WBC (Bld) 0 % Normal 0-2 [facility] Comment on above: Performed By: #### C MPX, GLYHGB, LIPR, LACTIC, CDP #### [place] [address] Manufacturing Automation Engineer: Juan F Dominguez MD Eosinophils (Bld) [#/Vol] 0.08 10*3/uL Normal 0.00-0.44 [facility] Comment on above: Performed By: #### C MPX, GLYHGB, LIPR, LACTIC, CDP #### [address] [address] Manufacturing Automation Engineer: Juan F Dominguez MD Eosinophils/100 WBC (Bld) 2 % Normal 1-4 [facility] Comment on above: Performed By: #### C MPX, GLYHGB, LIPR, LACTIC, CDP #### [address] [address] Manufacturing Automation Engineer: Juan F Domniguez MD Erythrocyte distribution width (RBC) [Ratio] 11.9 % Normal 11.8-14.4 [facility] Comment on above: Performed By: #### C MPX, GLYHGB, LIPR, LACTIC, CDP #### [address] [address] Manufacturing Automation Engineer: Juan F Dominguez MD Hematocrit (Bld) [Volume fraction] 38.8 % Low 40.7-50.3 [facility] Comment on above: Performed By: #### C MPX, GLYHGB, LIPR, LACTIC, CDP #### [address] [address] Manufacturing Automation Engineer: Juan F Dominguez MD Hemoglobin (Bld) [Mass/Vol] 13.6 g/dL Normal 13.0-17.0 [facility] Comment on above: Performed By: #### C MPX, GLYHGB, LIPR, LACTIC, CDP #### [address] [address] Manufacturing Automation Engineer: Juan F Dominguez MD Immature granulocytes (Bld) [#/Vol] 0 % Normal 0 [facility] Comment on above: Performed By: #### C MPX, GLYHGB, LIPR, LACTIC, CDP #### [address] [address] Manufacturing Automation Engineer: Juan F Dominguez MD Lymphocytes (Bld) [#/Vol] 1.11 10*3/uL Normal 1.10-3.70 [facility] Comment on above: Performed By: #### C MPX, GLYHGB, LIPR, LACTIC, CDP #### [address] [address] Manufacturing Automation Engineer: Juan F Dominguez MD Lymphocytes/100 WBC (Bld) 28 % Normal 24-43 [facility] Comment on above: Performed By: #### C MPX, GLYHGB, LIPR, LACTIC, CDP #### [address] [address] Manufacturing Automation Engineer: Juna F Dominguez MD MCH (RBC) [Entitic mass] 35.8 pg High 25.2-33.5 [facility] Comment on above: Performed By: #### C MPX, GLYHGB, LIPR, LACTIC, CDP #### [address] [address] Manufacturing Automation Engineer: Juan F Dominguez MD MCHC (RBC) [Mass/Vol] 35.1 g/dL High 28.4-34.8 [facility] Comment on above: Performed By: #### C MPX, GLYHGB, LIPR, LACTIC, CDP #### [address] [address] Manufacturing Automation Engineer: Juan F Dominguez MD MCV (RBC) [Entitic vol] 102.1 fL Normal 82.6-102.9 [facility] Comment on above: Performed By: #### C MPX, GLYHGB, LIPR, LACTIC, CDP #### [address] [address] Manufacturing Automation Engineer: Juan F Dominguez MD Monocytes (Bld) [#/Vol] 0.41 10*3/uL Normal 0.10-1.20 [facility] Comment on above: Performed By: #### C MPX, GLYHGB, LIPR, LACTIC, CDP #### [address] [address] Manufacturing Automation Engineer: Juan F Dominguez MD Monocytes/100 WBC (Bld) 10 % Normal 3-12 [facility] Comment on above: Performed By: #### C MPX, GLYHGB, LIPR, LACTIC, CDP #### [address] [address] Manufacturing Automation Engineer: Juan F Dominguez MD Neutrophil (Seg) 60 % Normal 36-65 [facility] Comment on above: Performed By: #### C MPX, GLYHGB, LIPR, LACTIC, CDP #### [address] [address] Manufacturing Automation Engineer: Juan F Dominguez MD NRBC Automated 0.0 per 100 WBC Normal 0.0 [facility] Comment on above: Performed By: #### C MPX, GLYHGB, LIPR, LACTIC, CDP #### [address] [address] Manufacturing Automation Engineer: Juan F Dominguez MD Platelet mean volume (Bld) [Entitic vol] 8.2 fL Normal 8.1-13.5 [facility] Comment on above: Performed By: #### C MPX, GLYHGB, LIPR, LACTIC, CDP #### [address] [address] Manufacturing Automation Engineer: Juan F Dominguez MD Platelets (Bld) [#/Vol] 200 10*3/uL Normal 138-453 [facility] Comment on above: Performed By: #### C MPX, GLYHGB, LIPR, LACTIC, CDP #### [address] [address] Manufacturing Automation Engineer: Juan F Dominguez MD RBC (Bld) [#/Vol] 3.80 10*6/uL Low 4.21-5.77 [facility] Comment on above: Performed By: #### C MPX, GLYHGB, LIPR, LACTIC, CDP #### [address] [address] Manufacturing Automation Engineer: Juan F Dominguez MD WBC (Bld) [#/Vol] 4.0 10*3/uL Normal 3.5-11.3 [facility] Comment on above: Performed By: #### C MPX, GLYHGB, LIPR, LACTIC, CDP #### [address] [address] Manufacturing Automation Engineer: Juan F Dominguez MD Auto Diff Performed NOT REPORTED Normal [facility] Comment on above: Performed By: #### C MPX, GLYHGB, LIPR, LACTIC, CDP #### [address] [address] Manufacturing Automation Engineer: Juan F Dominguez MD Platelets (Bld) [#/Vol] NOT REPORTED Normal [facility] Comment on above: Performed By: #### C MPX, GLYHGB, LIPR, LACTIC, CDP #### [facility] [place] [address] Manufacturing Automation Engineer: Juan F Dominguez MD RBC morphology finding Nom (Bld) NOT REPORTED Normal [facility] Comment on above: Performed By: #### C MPX, GLYHGB, LIPR, LACTIC, CDP #### [facility] [place] [address] Manufacturing Automation Engineer: Juan F Dominguez MD WBC Morphology NOT REPORTED Normal [facility] Comment on above: Performed By: #### C MPX, GLYHGB, LIPR, LACTIC, CDP #### [address] [address] Manufacturing Automation Engineer: Juan F Dominguez MD Comp Metabolic Pr/rfx MGon 0 12-21-2019 (cont.) Normal [facility] Comment on above: Result Comment: Aver age GFR for 70 or more years old: 75 mL/min/1.73sq m Chronic Kidney Disease: <60 mL/min/1.73sq m Kidney failure: <15 mL/min/1.73sq m eGFR calculated using average adult body mass. Additional eGFR calculator available at: http://www.Engezni.youbeQ - Maps With Life/multiple_crcl_2011.htm Performed By: #### C MPX, GLYHGB, LIPR, LACTIC, CDP #### [facility] [place] [address] Manufacturing Automation Engineer: Juan F Dominguez MD Albumin [Mass/Vol] 3.9 g/dL Normal 3.5-5.2 [facility] Comment on above: Performed By: #### C MPX, GLYHGB, LIPR, LACTIC, CDP #### [facility] [employer] [address] [place] [address] Manufacturing Automation Engineer: Juan F Dominguez MD Albumin/Globulin [Mass ratio] 1.2 {ratio} Normal 1.0-2.5 [facility] Comment on above: Performed By: #### C MPX, GLYHGB, LIPR, LACTIC, CDP #### [facility] [employer] [address] [place] [address] Manufacturing Automation Engineer: Juan F Dominguez MD Alkaline Phos 80 U/L Normal 40-129 [facility] Comment on above: Performed By: #### C MPX, GLYHGB, LIPR, LACTIC, CDP #### [address] [address] Manufacturing Automation Engineer: Juan F Dominguez MD ALT [Catalytic activity/Vol] 22 U/L Normal 5-41 [facility] Comment on above: Performed By: #### C MPX, GLYHGB, LIPR, LACTIC, CDP #### [facility] [employer] [address] [place] [address] Manufacturing Automation Engineer: Juan F Dominguez MD Anion gap [Moles/Vol] 15 mmol/L Normal 9-17 [facility] Comment on above: Performed By: #### C MPX, GLYHGB, LIPR, LACTIC, CDP #### [facility] [employer] [address] [place] [address] Manufacturing Automation Engineer: Juan F Dominguez MD Bilirubin Ql (U) 0.74 mg/dL Normal 0.3-1.2 [facility] Comment on above: Performed By: #### C MPX, GLYHGB, LIPR, LACTIC, CDP #### [facility] [address] [place] [address] Manufacturing Automation Engineer: Juan F Dominguez MD Calcium [Mass/Vol] 9.5 mg/dL Normal 8.6-10.4 [facility] Comment on above: Performed By: #### C MPX, GLYHGB, LIPR, LACTIC, CDP #### [address] [address] Manufacturing Automation Engineer: Juan F Dominguez MD Chloride [Moles/Vol] 99 mmol/L Normal 98-107 [facility] Comment on above: Performed By: #### C MPX, GLYHGB, LIPR, LACTIC, CDP #### [address] [address] Manufacturing Automation Engineer: Juan F Dominguez MD CO2 [Moles/Vol] 20 mmol/L Normal 20-31 [facility] Comment on above: Performed By: #### C MPX, GLYHGB, LIPR, LACTIC, CDP #### [address] [address] Manufacturing Automation Engineer: Juan F Dominguez MD Creatinine [Mass/Vol] 0.77 mg/dL Normal 0.70-1.20 [facility] Comment on above: Performed By: #### C MPX, GLYHGB, LIPR, LACTIC, CDP #### [address] [address] Manufacturing Automation Engineer: Juan F Dominguez MD GFR, Amer >60 Normal >60 [facility] Comment on above: Performed By: #### C MPX, GLYHGB, LIPR, LACTIC, CDP #### [address] [address] Manufacturing Automation Engineer: Juan F Dominguez MD GFR,non Amer >60 Normal >60 [facility] Comment on above: Performed By: #### C MPX, GLYHGB, LIPR, LACTIC, CDP #### [address] [address] Manufacturing Automation Engineer: Juan F Dominguez MD Glucose [Mass/Vol] 86 mg/dL Normal 70-99 [facility] Comment on above: Performed By: #### C MPX, GLYHGB, LIPR, LACTIC, CDP #### [address] [place] [address] Manufacturing Automation Engineer: Juan F Dominguez MD Potassium [Moles/Vol] 4.2 mmol/L Normal 3.7-5.3 [facility] Comment on above: Performed By: #### C MPX, GLYHGB, LIPR, LACTIC, CDP #### [facility] [employer] [address] [place] [address] Manufacturing Automation Engineer: Juan F Dominguez MD Protein [Mass/Vol] 7.2 g/dL Normal 6.4-8.3 [facility] Comment on above: Performed By: #### C MPX, GLYHGB, LIPR, LACTIC, CDP #### [facility] [employer] [address] [place] [address] Manufacturing Automation Engineer: Juan F Dominguez MD Sodium [Moles/Vol] 134 mmol/L Low 135-144 [facility] Comment on above: Performed By: #### C MPX, GLYHGB, LIPR, LACTIC, CDP #### [facility] [employer] [address] [place] [address] Manufacturing Automation Engineer: Juan F Dominguez MD Urea nitrogen [Mass/Vol] 16 mg/dL Normal - [facility] Comment on above: Performed By: #### C MPX, GLYHGB, LIPR, LACTIC, CDP #### [facility] [employer] [address] [place] [address] Manufacturing Automation Engineer: Juan F Dominguez MD BUN/CRE Ratio NOT REPORTED Normal - [facility] Comment on above: Performed By: #### C MPX, GLYHGB, LIPR, LACTIC, CDP #### [facility] [employer] [address] [place] [address] Manufacturing Automation Engineer: Juan F Dominguez MD Staging: NOT REPORTED Normal [facility] Comment on above: Performed By: #### C MPX, GLYHGB, LIPR, LACTIC, CDP #### [facility] [employer] [address] [place] [address] Manufacturing Automation Engineer: Juan F Dominguez MD Drug Scr, Abuse, Uron 2019 Buprenorphrine, Ur NOT REPORTED Normal NEG [facility] Comment on above: Performed By: #### Artem AU UA, UMICAO #### [facility] [address] [place] [address] Manufacturing Automation Engineer: Juan F Dominguez MD MDMA, Urine NOT REPORTED Normal NEG [facility] Comment on above: Performed By: #### Artem AU UA, UMICAO #### [facility] [address] [place] [id number] Manufacturing Automation Engineer: Juan F Dominguez MD Methamphetamine, Ur NOT REPORTED Normal NEG [facility] Comment on above: Performed By: #### Artem SCHULZ UA, UMICAO #### [facility] [address] [place] [id number] Manufacturing Automation Engineer: Juan F Dominguez MD Propoxyphene,Urine NOT REPORTED Normal NEG [facility] Comment on above: Performed By: #### Artem SCHULZ UA, UMICAO #### [facility] [address] [place] [address] Manufacturing Automation Engineer: Juan F Dominguez MD Tricyclic antidepressants Screen Ql (U) NOT REPORTED Normal NEG [facility] Comment on above: Performed By: #### Artem SCHULZ UA, UMICAO #### [facility] [address] [place] [id number] Manufacturing Automation Engineer: Juan F Dominguez MD Lactic Acidon 12-21-2019 Lactate [Moles/Vol] NOT REPORTED Normal [facility] Comment on above: Performed By: #### Artem SCHULZ UA, UMICAO #### [facility] [address] [place] [id number] Manufacturing Automation Engineer: Juan F Dominguez MD Lipid Profileon 12-21-2019 Cholesterol in VLDL [Mass/Vol] NOT REPORTED Normal 1-30 [facility] Comment on above: Performed By: #### Artem AU UA, UMICAO #### [facility] [address] [place] [address] Manufacturing Automation Engineer: Juan F Dominguez MD Urinalysis, Routineon 2019 Comment NOT REPORTED Normal [facility] Comment on above: Performed By: #### Artem AU UA, UMICAO #### [facility] [address] [place] [address] Manufacturing Automation Engineer: Juan F Dominguez MD Urinalysis,Microon 0 Amorphous sediment LM Ql (Urine sed) NOT REPORTED Normal NONE [facility] Comment on above: Performed By: #### Artem SCHULZ UA, UMICAO #### [facility] [address] [place] [address] Manufacturing Automation Engineer: Juan F Dominguez MD Bacteria LM.HPF (Urine sed) [#/Area] NOT REPORTED Normal [facility] Comment on above: Performed By: #### Artem SCHULZ UA, UMICAO #### [facility] [address] [place] [phone] Manufacturing Automation Engineer: Juan F Dominguez MD Crystals LM Nom (Urine sed) NOT REPORTED Normal NONE [facility] Comment on above: Performed By: #### Artem AU UA, UMICAO #### [facility] [address] [place] [address] Manufacturing Automation Engineer: Juan F Dominguez MD Epithelial, Renal NOT REPORTED Normal 0 [facility] Comment on above: Performed By: #### Artem AU UA, UMICAO #### [facility] [address] [place] [address] Manufacturing Automation Engineer: Juan F Dominguez MD Mucus Strands NOT REPORTED Normal NONE [facility] Comment on above: Performed By: #### Artem AU UA, UMICAO #### [facility] [address] [place] [address] Manufacturing Automation Engineer: Juan F Dominguez MD Other Observations NOT REPORTED Normal NREQ [facility] Comment on above: Performed By: #### D AU, UA, UMICAO #### [facility] [address] [place] [address] Manufacturing Automation Engineer: Juan F Dominguez MD Trichomonas NOT REPORTED Normal NONE [facility] Comment on above: Performed By: #### D AU, UA, UMICAO #### [facility] [address] [place] [address] Manufacturing Automation Engineer: Juan F Dominguez MD Yeast LM Ql (Urine sed) NOT REPORTED Normal NONE [facility] Comment on above: Performed By: #### D AU, UA, UMICAO #### [facility] [address] [place] [address] Manufacturing Automation Engineer: Juan F Dominguez MD Vital Signs Date Time Vital Sign Value Performing Clinician Facility 02-21-2024 14:59-0400 Body height 175.26 cm DO [employer] Work Phone: [facility] 02-21-2024 14:59-0400 Body mass index (BMI) [Ratio] 25.4 kg/m2 DO Sam Cooney Work Phone: [facility] 02-21-2024 14:59-0400 Body temperature 97.7 [degF] DO Sam Harmon Work Phone: [facility] 02-21-2024 14:59-0400 Body weight 78.01 kg DO Sam Harmon Work Phone: [facility] 02-21-2024 14:59-0400 Diastolic blood pressure 58 mm[Hg] DO Sam Harmon Work Phone: [facility] 02-21-2024 14:59-0400 Heart rate 74 /min DO Sam Harmon Work Phone: [facility] 02-21-2024 14:59-0400 Respiratory rate 202 /min DO Sam Cooney Work Phone: [facility] 02-21-2024 14:59-0400 SaO2% (BldA) [Mass fraction] 100 % DO Sam Cooney Work Phone: [facility] 02-21-2024 14:59-0400 Systolic blood pressure 93 mm[Hg] DO Sam Cooney Work Phone: [facility] 12-03-2023 15:25-0400 Blood Pressure Location Trung FERGUSON [facility] 12-03-2023 15:25-0400 Diastolic blood pressure 74 mm[Hg] Trung FERGUSON [facility] 12-03-2023 15:25-0400 Heart rate 76 /min Trung FERGUSON [facility] 12-03-2023 15:25-0400 Respiratory rate 16 /min Trung FERGUSON [facility] 12-03-2023 15:25-0400 Systolic blood pressure 137 mm[Hg] Trung FERGUSON [facility] 10-22-2023 11:54-0500 Body height 175.3 cm Za Hernández MD Work Phone: [facility] 10-22-2023 11:54-0500 Body mass index (BMI) [Ratio] 27.17 kg/m2 Za Hernández MD Work Phone: [facility] 10-22-2023 11:54-0500 Body weight 83.46 kg Za Hernández MD Work Phone: [facility] 10-22-2023 11:54-0500 Diastolic blood pressure 72 mm[Hg] Za Hernández MD Work Phone: [facility] 10-22-2023 11:54-0500 Heart rate 56 /min Za Hernández MD Work Phone: [facility] 10-22-2023 11:54-0500 Systolic blood pressure 124 mm[Hg] Za Hernández MD Work Phone: [facility] 08-28-2023 12:20-0500 Diastolic blood pressure 78 mm[Hg] Ryan Cobb MD Work Phone: [facility] 08-28-2023 12:20-0500 Heart rate 60 /min Ryan Cobb MD Work Phone: [facility] 08-28-2023 12:20-0500 Respiratory rate 14 /min Ryan Cobb MD Work Phone: [facility] 08-28-2023 12:20-0500 SaO2% (BldA) [Mass fraction] 98 % Ryan Cobb MD Work Phone: [facility] 08-28-2023 12:20-0500 Systolic blood pressure 137 mm[Hg] Ryan Cobb MD Work Phone: [facility] 08-22-2023 08:48-0500 Body height 175.3 cm Ryan Cobb MD Work Phone: [facility] 08-22-2023 08:48-0500 Body mass index (BMI) [Ratio] 25.84 kg/m2 Ryan Cobb MD Work Phone: [facility] 08-22-2023 08:48-0500 Body temperature 96.01 [degF] Ryan Cobb MD Work Phone: [facility] 08-22-2023 08:48-0500 Body weight 79.38 kg Ryan Cobb MD Work Phone: [facility] 08-22-2023 08:48-0500 Diastolic blood pressure 79 mm[Hg] Ryan Cobb MD Work Phone: [facility] 08-22-2023 08:48-0500 Heart rate 60 /min Ryan Cobb MD Work Phone: [facility] 08-22-2023 08:48-0500 Respiratory rate 16 /min Ryan Cobb MD Work Phone: [facility] 08-22-2023 08:48-0500 SaO2% (BldA) [Mass fraction] 96 % Ryan Cobb MD Work Phone: [facility] 08-22-2023 08:48-0500 Systolic blood pressure 151 mm[Hg] Ryan Cobb MD Work Phone: [facility] 07-09-2023 11:04-0400 Diastolic blood pressure 78 mm[Hg] Trung FERGUSON [facility] 07-09-2023 11:04-0400 Heart rate 68 /min Trung FERGUSON [facility] 07-09-2023 11:04-0400 Respiratory rate 16 /min Trung FERGUSON [facility] 07-09-2023 11:04-0400 Systolic blood pressure 132 mm[Hg] Trung FERGUSON [facility] 06-11-2023 11:27-0400 Diastolic blood pressure 60 mm[Hg] Sam Cooney Work Phone: [facility] DO Work Phone: 06-11-2023 11:27-0400 Systolic blood pressure 118 mm[Hg] Sam Cooney Work Phone: [facility] [facility] DO Work Phone: 06-11-2023 10:51-0400 Body height 175.26 cm Sam Cooney Work Phone: [facility] [address] DO Work Phone: 06-11-2023 10:51-0400 Body mass index (BMI) [Ratio] 26.29 kg/m2 Sam Cooney Work Phone: [facility] [address] DO Work Phone: 06-11-2023 10:51-0400 Body surface area Derived from formula 1.97 m2 Sam Cooney Work Phone: [facility] [address] DO Work Phone: 06-11-2023 10:51-0400 Body weight 80.74 kg Sam Cooney Work Phone: [facility] DO Work Phone: 06-11-2023 10:51-0400 Diastolic blood pressure 76 mm[Hg] Sam Cooney Work Phone: [facility] DO Work Phone: 06-11-2023 10:51-0400 Heart rate 66 /min Sam Cooney Work Phone: [facility] [address] DO Work Phone: 06-11-2023 10:51-0400 Systolic blood pressure 128 mm[Hg] Sam Cooney Work Phone: [facility] [address] DO Work Phone: 04-03-2023 09:05-0400 Blood Pressure Location CHARLOTTE BAKER [facility] 04-03-2023 09:05-0400 Diastolic blood pressure 56 mm[Hg] CHARLOTTE BAKER [facility] 04-03-2023 09:05-0400 Heart rate 58 /min CHARLOTTE BAKER [facility] 04-03-2023 09:05-0400 Respiratory rate 16 /min CHARLOTTE BAKER [facility] 04-03-2023 09:05-0400 Systolic blood pressure 96 mm[Hg] CHARLOTTE BAKER [facility] 02-26-2023 12:14-0400 Diastolic blood pressure 40 mm[Hg] Sam Cooney Work Phone: [facility] DO Work Phone: 02-26-2023 12:14-0400 Systolic blood pressure 82 mm[Hg] Sam Cooney Work Phone: [facility] DO Work Phone: 02-26-2023 12:14-0400 50 1 Sam Meneses Harmon Work Phone: [facility] DO Work Phone: Comment on above: [email or web address] 02-26-2023 11:37-0400 Body height 175.26 cm Sam Cooney Work Phone: [facility] DO Work Phone: 02-26-2023 11:37-0400 Body mass index (BMI) [Ratio] 25.93 kg/m2 Sam Meneses Harmon Work Phone: [facility] DO Work Phone: 02-26-2023 11:37-0400 Body surface area Derived from formula 1.95 m2 Sam Cooney Work Phone: [facility] [facility] DO Work Phone: 02-26-2023 11:37-0400 Body weight 79.65 kg Kleberg E Harmon Work Phone: [facility] DO Work Phone: 02-26-2023 11:37-0400 Diastolic blood pressure 52 mm[Hg] Sam Meneses Harmon Work Phone: [facility] DO Work Phone: 02-26-2023 11:37-0400 Heart rate 56 /min Sam Meneses Harmon Work Phone: [facility] DO Work Phone: 02-26-2023 11:37-0400 Systolic blood pressure 98 mm[Hg] Sam Meneses Harmon Work Phone: [facility] DO Work Phone: 01-23-2023 14:12-0400 Blood Pressure Location CHARLOTTE RITESH [facility] 01-23-2023 14:12-0400 Diastolic blood pressure 76 mm[Hg] CHARLOTTE RITESH [facility] 01-23-2023 14:12-0400 Heart rate 78 /min CHARLOTTE RITESH [facility] 01-23-2023 14:12-0400 Respiratory rate 16 /min CHARLOTTE RITESH [facility] 01-23-2023 14:12-0400 Systolic blood pressure 130 mm[Hg] CHARLOTTE RITESH [facility] 01-01-2023 11:45-0400 Blood Pressure Location Trung FERGUSON [facility] 01-01-2023 11:45-0400 Diastolic blood pressure 88 mm[Hg] Trung FERGUSON [facility] 01-01-2023 11:45-0400 Heart rate 67 /min Trung FERGUSON [facility] 01-01-2023 11:45-0400 Respiratory rate 16 /min Trung FERGUSON [facility] 01-01-2023 11:45-0400 Systolic blood pressure 135 mm[Hg] Trung FERGUSON [facility] 11-03-2022 13:02-0500 Blood Pressure Location Trungemily FERGUSON [facility] 11-03-2022 13:02-0500 Diastolic blood pressure 74 mm[Hg] Trung FERGUSON [facility] 11-03-2022 13:02-0500 Heart rate 68 /min Trungemily FERGUSON [facility] 11-03-2022 13:02-0500 Respiratory rate 16 /min Trung FERGUSON [facility] 11-03-2022 13:02-0500 Systolic blood pressure 128 mm[Hg] Trung FERGUSON [facility] 10-09-2022 13:22-0500 Diastolic blood pressure 74 mm[Hg] Sam Cooney Work Phone: [facility] DO Work Phone: 10-09-2022 13:22-0500 Systolic blood pressure 136 mm[Hg] Sam Cooney Work Phone: [facility] DO Work Phone: 10-09-2022 13:05-0500 Body height 175.26 cm Sam Meneses Harmon Work Phone: [facility] DO Work Phone: 10-09-2022 13:05-0500 Body mass index (BMI) [Ratio] 26.58 kg/m2 Sam Meneses Harmon Work Phone: [facility] DO Work Phone: 10-09-2022 13:05-0500 Body surface area Derived from formula 1.98 m2 Sam Meneses Harmon Work Phone: [facility] DO Work Phone: 10-09-2022 13:05-0500 Body weight 81.65 kg Sam Meneses Harmon Work Phone: [facility] DO Work Phone: 10-09-2022 13:05-0500 Diastolic blood pressure 72 mm[Hg] Sam Meneses Harmon Work Phone: [facility] DO Work Phone: 10-09-2022 13:05-0500 Heart rate 84 /min Sam Meneses Harmon Work Phone: [facility] DO Work Phone: 10-09-2022 13:05-0500 Systolic blood pressure 142 mm[Hg] Sam Meneses Harmon Work Phone: [facility] DO Work Phone: 10-02-2022 15:48-0500 Body height 175.26 cm Sam Meneses Harmon Work Phone: [facility] DO Work Phone: 10-02-2022 15:48-0500 Body mass index (BMI) [Ratio] 26.43 kg/m2 Sam Meneses Harmon Work Phone: [facility] DO Work Phone: 10-02-2022 15:48-0500 Body surface area Derived from formula 1.97 m2 Sam Gideon Cooney Work Phone: [facility] DO Work Phone: 10-02-2022 15:48-0500 Body weight 81.19 kg Kleberg Gideon Harmon Work Phone: [facility] DO Work Phone: 10-02-2022 15:48-0500 Diastolic blood pressure 82 mm[Hg] Sam Cooney Work Phone: [facility] DO Work Phone: 10-02-2022 15:48-0500 Heart rate 68 /min Sam Cooney Work Phone: [facility] DO Work Phone: 10-02-2022 15:48-0500 Systolic blood pressure 134 mm[Hg] Sam Cooney Work Phone: [facility] DO Work Phone: 10-02-2022 11:32-0500 Blood Pressure Location Trung FERGUSON [facility] 10-02-2022 11:32-0500 Diastolic blood pressure 75 mm[Hg] Trung FERGUSON [facility] 10-02-2022 11:32-0500 Heart rate 70 /min Trung FERGUSON [facility] 10-02-2022 11:32-0500 Respiratory rate 16 /min Trung FERGUSON [facility] 10-02-2022 11:32-0500 Systolic blood pressure 134 mm[Hg] Trung FERGUSON [facility] 09-11-2022 13:07-0500 Diastolic blood pressure 84 mm[Hg] Sam Cooney Work Phone: [facility] DO Work Phone: 09-11-2022 13:07-0500 Diastolic blood pressure 92 mm[Hg] Sam Cooney Work Phone: [facility] DO Work Phone: 09-11-2022 13:07-0500 Systolic blood pressure 144 mm[Hg] Sam Cooney Work Phone: [facility] DO Work Phone: 09-11-2022 13:07-0500 Systolic blood pressure 148 mm[Hg] Sam Cooney Work Phone: [facility] DO Work Phone: 09-11-2022 13:00-0500 Body height 175.26 cm Sam Cooney Work Phone: [facility] DO Work Phone: 09-11-2022 13:00-0500 Body mass index (BMI) [Ratio] 25.99 kg/m2 Sam Cooney Work Phone: [facility] DO Work Phone: 09-11-2022 13:00-0500 Body surface area Derived from formula 1.96 m2 Sam Cooney Work Phone: [facility] DO Work Phone: 09-11-2022 13:00-0500 Body weight 79.83 kg Sam Cooney Work Phone: [facility] DO Work Phone: 09-11-2022 13:00-0500 Heart rate 62 /min Sam Meneses Harmon Work Phone: [facility] DO Work Phone: 08-28-2022 13:16-0500 Body height 175.26 cm Sam Meneses Harmon Work Phone: [facility] DO Work Phone: 08-28-2022 13:16-0500 Body mass index (BMI) [Ratio] 25.84 kg/m2 Sam Meneses Harmon Work Phone: [facility] DO Work Phone: 08-28-2022 13:16-0500 Body surface area Derived from formula 1.95 m2 Sam Meneses Harmon Work Phone: [facility] [facility] DO Work Phone: 08-28-2022 13:16-0500 Body weight 79.38 kg Sam Meneses Harmon Work Phone: [facility] DO Work Phone: 08-28-2022 13:16-0500 Diastolic blood pressure 94 mm[Hg] aSm Meneses Harmon Work Phone: [facility] DO Work Phone: 08-28-2022 13:16-0500 Heart rate 88 /min Sam Meneses Harmon Work Phone: [facility] DO Work Phone: 08-28-2022 13:16-0500 Systolic blood pressure 152 mm[Hg] Sam Meneses Harmon Work Phone: [facility] DO Work Phone: 06-15-2022 10:12-0400 Body height 175.26 cm Sam Meneses Harmon Work Phone: [facility] DO Work Phone: 06-15-2022 10:12-0400 Body mass index (BMI) [Ratio] 24.81 kg/m2 Sam Cooney Work Phone: [facility] DO Work Phone: 06-15-2022 10:12-0400 Body surface area Derived from formula 1.92 m2 Sam Gideon Cooney Work Phone: [facility] DO Work Phone: 06-15-2022 10:12-0400 Body weight 76.2 kg Sam Gideon Cooney Work Phone: [facility] DO Work Phone: 06-15-2022 10:12-0400 Diastolic blood pressure 82 mm[Hg] Sam Meneses Harmon Work Phone: [facility] DO Work Phone: 06-15-2022 10:12-0400 Heart rate 64 /min Sam Coonye Work Phone: [facility] DO Work Phone: 06-15-2022 10:12-0400 Systolic blood pressure 160 mm[Hg] Sam Cooney Work Phone: [facility] DO Work Phone: 06-15-2022 10:12-0400 4 1 Sam Cooney Work Phone: [facility] DO Work Phone: Comment on above: [id number] TS 04-24-2022 11:18-0400 Blood Pressure Location Trung MARTY [facility] 04-24-2022 11:18-0400 Diastolic blood pressure 86 mm[Hg] Trung FERGUSON [facility] 04-24-2022 11:18-0400 Heart rate 74 /min Trung FERGUSON [facility] 04-24-2022 11:18-0400 Respiratory rate 16 /min Trung FERGUSON [facility] 04-24-2022 11:18-0400 Systolic blood pressure 134 mm[Hg] Trung FERGUSON [facility] 01-23-2022 12:57-0400 Blood Pressure Location Trung FERGUSON [facility] 01-23-2022 12:57-0400 Diastolic blood pressure 87 mm[Hg] Trung FERGUSON [facility] 01-23-2022 12:57-0400 Heart rate 70 /min Trung FERGUSON [facility] 01-23-2022 12:57-0400 Respiratory rate 16 /min Trung FERUGSON [facility] 01-23-2022 12:57-0400 Systolic blood pressure 139 mm[Hg] Trung FERGUSON [facility] 08-31-2021 13:24-0500 Body height 175.26 cm Sam Meneses Harmon Work Phone: [facility] DO Work Phone: 08-31-2021 13:24-0500 Body mass index (BMI) [Ratio] 27.02 kg/m2 Sam Meneses Harmon Work Phone: [facility] DO Work Phone: 08-31-2021 13:24-0500 Body surface area Derived from formula 1.99 m2 Sam Meneses Harmon Work Phone: [facility] [facility] 250 DO Work Phone: 08-31-2021 13:24-0500 Body weight 83.01 kg Sam Meneses Harmon Work Phone: [facility] 250 DO Work Phone: 08-31-2021 13:24-0500 Diastolic blood pressure 88 mm[Hg] Sam Meneses Harmon Work Phone: [facility] 250 DO Work Phone: 08-31-2021 13:24-0500 Heart rate 74 /min Sam Meneses Harmon Work Phone: [facility] 250 DO Work Phone: 08-31-2021 13:24-0500 Systolic blood pressure 142 mm[Hg] Sam Meneses Harmon Work Phone: [facility] 250 DO Work Phone: 08-03-2021 09:57-0500 Body height 175.26 cm Sam Meneses Harmon Work Phone: [facility] 250 DO Work Phone: 08-03-2021 09:57-0500 Body mass index (BMI) [Ratio] 26.29 kg/m2 Sam Meneses Harmon Work Phone: [facility] 250 DO Work Phone: 08-03-2021 09:57-0500 Body surface area Derived from formula 1.97 m2 Sam Cooney Work Phone: [facility] 250 DO Work Phone: 08-03-2021 09:57-0500 Body weight 80.74 kg Sam Cooney Work Phone: [facility] 250 DO Work Phone: 08-03-2021 09:57-0500 Diastolic blood pressure 90 mm[Hg] Sam Cooney Work Phone: [facility] 250 DO Work Phone: 08-03-2021 09:57-0500 Heart rate 66 /min Sam Cooney Work Phone: [facility] 250 DO Work Phone: 08-03-2021 09:57-0500 Systolic blood pressure 170 mm[Hg] Sam Cooney Work Phone: [facility] 250 DO Work Phone: Encounters Encounter Date Encounter Type Care Provider Facility Start: 06-16-2024 ambulatory Trung Santizo ty:[facility] Start: 02-21-2024 ambulatory Mhd Casimiro Cuevas Fa cility:[facility] Start: 02-21-2024 End: 02-21-2024 ambulatory DO Sam Cooney Work Phone: [facility] Work Phone: Start: 02-21-2024 End: 02-21-2024 Patient encounter procedure DO Sam Cooney Work Phone: [facility] Physician [facility] Ambulatory Work Phone: Start: 02-21-2024 Registered Recurring DO Sam Cooney Work Phone: [facility] Acute Work Phone: Start: 02-11-2024 End: 02-11-2024 ambulatory GRACE VAZQUEZ Not Available Start: 01-15-2024 End: 01-15-2024 ambulatory ROXANNE GIVENS [facility] Start: 12-28-2023 ambulatory SAM Meneses EROS [facility] Start: 12-28-2023 End: 12-29-2023 ambulatory RYAN Ocampo [facility] Start: 12-28-2023 End: 12-28-2023 Subsequent hospital visit by physician Fatemeh [id number] [facility] Comment on above: Atrial fibrillation, unspecified type (CMS/HCC) Start: 12-03-2023 End: 12-04-2023 ambulatory Trung FERGUSON Facility:[facility] Start: 12-03-2023 End: 12-03-2023 Patient encounter procedure Trung FERGUSON [facility] Start: 11-20-2023 ambulatory GUNNAR SHAFFER DO Fa cility:[id number] Start: 11-07-2023 End: 11-07-2023 ambulatory CAMILA ZEPEDA MD Facility:[id number] Start: 11-06-2023 Chart abstracting Kylee Arreguin DPM Work Phone: [facility] Start: 10-22-2023 End: 10-22-2023 ambulatory [facility] Ambulatory Start: 10-22-2023 End: 10-22-2023 Encounter for preprocedural cardiovascular examination [facility] Ambulatory Start: 10-22-2023 End: 10-22-2023 Office outpatient visit 25 minutes Za Hernández MD Work Phone: [facility] Comment on above: Unspecified mood (af fective) disorder (CMS/HCC) (Primary Dx); Paroxysmal atrial fibrillation (CMS/HCC); Former smoker; Encounter for pre-operative cardiovascular clearance; Presence of Watchman left atrial appendage closure device; Paroxysmal atrial fibrillation with RVR (CMS/HCC); Mixed hyperlipidemia; Primary hypertension; Pain in joint of left shoulder Start: 10-22-2023 End: 10-22-2023 Patient encounter status Za Hernández MD Work Phone: [facility] Work Phone: Start: 09-10-2023 End: 09-10-2023 ambulatory DO Sam Eros Work Phone: [facility] Work Phone: Start: 09-10-2023 End: 09-10-2023 Patient encounter procedure DO Sam Cooney Work Phone: [facility] Start: 08-28-2023 End: 08-28-2023 Subsequent hospital visit by physician Ryan Cobb MD Work Phone: [facility] Comment on above: Atrial fibrillation (CMS/HCC) (Primary Dx); Chronic atrial fibrillation, unspecified (CMS/HCC); Presence of Watchman left atrial appendage closure device Start: 08-24-2023 Evaluation and manag ement of inpatient [facility] Start: 08-22-2023 End: 08-23-2023 ambulatory SAM HARRINGTON [facility] Start: 08-22-2023 End: 08-22-2023 ambulatory [facility] Terrence [facility] Start: 08-22-2023 End: 08-22-2023 Office outpatient new 45 minutes Ryan Cobb MD Work Phone: [facility] Comment on above: Paroxysmal atrial fi brillation (CMS/HCC) (Primary Dx) Start: 08-13-2023 End: 08-13-2023 ambulatory KYLEE ARREGUIN Not Available Start: 08-09-2023 End: 08-09-2023 ambulatory Za Hernández Facility:[facility] Start: 08-09-2023 End: 08-09-2023 ambulatory DO Sam Cooney Work Phone: [facility] Work Phone: Start: 08-09-2023 End: 08-09-2023 Patient encounter procedure DO Sam Cooney Work Phone: [facility] Start: 07-31-2023 End: 08-01-2023 ambulatory PURNIMA DAVIDSON JR Facility:[facility] Start: 07-31-2023 Encounter for other preprocedural examination PURNIMA DAVIDSON JR [facility] Start: 07-31-2023 End: 08-01-2023 ambulatory SHERLEY SHAWBRANDON Not Available Start: 07-09-2023 End: 07-10-2023 ambulatory Trung Santosh FERGUSON Facility:[facility] Start: 07-09-2023 End: 07-09-2023 Patient encounter procedure Trung Frost EFRGUSON [facility] Start: 06-11-2023 Office outpatient vi sit 25 minutes Sam Cooney Work Phone: [facility] 250 DO Work Phone: Start: 06-11-2023 ambulatory ZA HERNÁNDEZ Facility:[id number] Start: 06-07-2023 End: 06-07-[address] Sam Cooney Facility:[id number] Start: 06-07-2023 End: 06-07-2023 ambulatory DO Sam Cooney Work Phone: [facility] Work Phone: Start: 06-07-2023 End: 06-07-2023 Patient encounter procedure DO Sam Cooney Work Phone: [facility] Start: 05-08-[address] Sam Cooney Facility:[id number] Start: 05-07-2023 End: 05-07-2023 ambulatory Za Hernández Facility:[facility] Start: 05-07-2023 End: 05-07-2023 ambulatory DO Sam Cooney Work Phone: [facility] Work Phone: Start: 05-07-2023 End: 05-07-2023 Patient encounter procedure DO Sam Harmon Work Phone: [facility] Start: 04-03-2023 End: 04-04-2023 ambulatory CHARLOTTE ESQUIVELRY Facility:[facility] Start: 04-03-2023 End: 04-03-2023 Patient encounter procedure CHARLOTTE ESQUIVELRY [facility] Start: 02-26-2023 ambulatory Ms. Loulou Arreguin Facility: Start: 02-26-2023 Office outpatient vi sit 25 minutes Kleberg Gideon Harmon Work Phone: [facility] 250 DO Work Phone: Start: 02-26-2023 Patient encounter procedure Sam Meneses Harmon Work Phone: [facility] 250 DO Work Phone: Start: 01-23-2023 End: 01-24-2023 ambulatory DO Sam Harmon Work Phone: [facility] Work Phone: Start: 01-23-2023 End: 01-23-2023 Patient encounter procedure CHARLOTTE Meneses RITESH [facility] Start: 01-22-2023 End: 01-22-2023 Patient encounter procedure DO Sam Harmon Work Phone: [facility] Start: 01-22-2023 End: 01-22-2023 ambulatory DO Kleberg Harmon Work Phone: [facility] Work Phone: Start: 01-01-2023 End: 01-02-2023 ambulatory Trung FERGUSON Facility:[facility] Start: 01-01-2023 End: 01-01-2023 Patient encounter procedure Trung FERGUSON [facility] Start: 12-08-[address] Sam Cooney Facility:[id number] Start: 12-08-2022 End: 12-08-2022 ambulatory DO Samkaterin Cooney Work Phone: [facility] Work Phone: Start: 12-08-2022 End: 12-08-2022 Patient encounter procedure DO Samkaterin Cooney Work Phone: [facility] Start: 11-17-2022 Patient encounter procedure Sam Cooney Work Phone: [facility] 250 DO Work Phone: Start: 11-06-2022 End: 11-06-2022 Patient encounter procedure Trung FERGUSON [facility] Start: 11-03-2022 End: 01-10-[address] SAM COONEY Facility:H1 Start: 11-03-2022 End: 11-03-2022 Patient encounter procedure Trung FERGUSON [facility] Start: 10-17-2022 End: 10-17-2022 Lab Drop off CHARLOTTE BAKER [facility] Start: 10-17-2022 End: 10-17-2022 Patient encounter procedure CHARLOTTE BAKER [facility] Start: 10-09-2022 ambulatory Ms. Loulou Arreguin Facility: Start: 10-09-2022 FUV, Provider: Loulou Myles, Status: Pen, Time: 12:30 PM Sam E Harmon Work Phone: [facility] 250 DO Work Phone: Start: 10-09-2022 Office outpatient vi sit 15 minutes Kleberg E Harmon Work Phone: [facility] 250 DO Work Phone: Start: 10-09-2022 Patient encounter procedure Kleberg E Harmon Work Phone: [facility] 250 DO Work Phone: Start: 10-02-[address] [facility] HERNÁNDEZ Facility:[id number] Start: 10-02-2022 Office outpatient vi sit 25 minutes Kleberg E Harmon Work Phone: [facility] 250 DO Work Phone: Start: 10-02-2022 End: 10-02-2022 Patient encounter procedure Trung FERGUSON [facility] Start: 09-19-2022 Rx Renewal Kleberg Gideon Brist ol Work Phone: [facility] 250 DO Work Phone: Start: 09-11-2022 Office outpatient vi sit 10 minutes Kleberg E Harmon Work Phone: [facility] 250 DO Work Phone: Start: 09-11-2022 ambulatory ZA HERNÁNDEZ Facility:[id number] Start: 09-04-2022 End: 09-04-2022 Patient encounter procedure Trung FERGUSON [facility] Start: 09-02-2022 Encounter for preprocedural laboratory examination DR TRUNG FERGUSON . [facility] Start: 08-31-2022 End: 09-01-[address] TRUNG FERGUSON . Facility:H1 Start: 08-29-2022 End: 08-30-[address] TRUNG FERGUSON . Facility:H1 Start: 08-29-2022 End: 08-30-2022 Encounter for preprocedural laboratory examination DR TRUNG FERGUSON . Facility:H1 Start: 08-28-2022 Office outpatient vi sit 25 minutes Sam Cooney Work Phone: [facility] 250 DO Work Phone: Start: 08-25-2022 End: 08-26-[address] SAM COONEY Facility:H1 Start: 08-22-2022 End: 08-23-[address] TRUNG FERGUSON . Facility: Start: 08-14-2022 Telephone encounter Sam cerna Work Phone: [facility] 250 DO Work Phone: Start: 07-20-[address] TRUNG FERGUSON . Fac ility:H1 Start: 07-14-2022 End: 07-15-[address] TRUNG FERGUSON . Facility: Start: 06-30-2022 Encounter for preprocedural cardiovascular examination DR TRUNG FERGUSON . [facility] Start: 06-30-2022 Encounter for preprocedural laboratory examination DR TRUNG FERGUSON . [facility] Start: 06-30-2022 End: 07-01-[address] TRUNG FERGUSON . Facility:H1 Start: 06-28-2022 End: 06-29-[address] TRUNG FERGUSON . Facility:H1 Start: 06-28-2022 End: 06-29-2022 Encounter for preprocedural cardiovascular examination DR TRUNG FERGUSON . Facility:H1 Start: 06-15-2022 Office outpatient vi sit 15 minutes Sam Cooney Work Phone: [facility] 250 DO Work Phone: Start: 06-15-2022 Patient encounter procedure Sam Cooney Work Phone: [facility] 250 DO Work Phone: Start: 04-24-2022 End: 05-10-2022 Pre-admission assessment Trung Santosh MARTY [facility] Start: 04-24-2022 End: 04-24-2022 Patient encounter procedure Turng Santosh FERGUSON [facility] Start: 04-12-2022 Telephone encounter Sam halltohamzah Work Phone: [facility] 250 DO Work Phone: Start: 04-08-2022 End: 04-08-[address] CONCHITA ARREGUIN Facility:H1 Start: 02-17-2022 End: 04-05-[address] SAM COONEY Facility:H1 Start: 01-23-2022 End: 01-23-2022 Patient encounter procedure Trung Santosh FERGUSON [facility] Start: 08-31-2021 Office outpatient vi sit 15 minutes Sam Cooney Work Phone: [facility] 250 DO Work Phone: Start: 02-07-2021 End: 02-07-2021 Patient encounter procedure Sam Cooney Work Phone: -Lab [facility] Start: 01-07-2021 End: 01-07-2021 Patient encounter procedure Sam Cooney Work Phone: -Pacemaker Check Start: 10-13-2020 End: 10-14-2020 Patient encounter procedure ISRAR UL SANTOS [facility] Start: 10-13-2020 End: 10-13-2020 Subsequent hospital visit by physician Sam Cooney [facility] Laboratory Start: 10-08-2020 End: 10-08-2020 Patient encounter procedure Sam Cooney -Pacemaker Check Start: 2020 End: 01-14-2021 Patient encounter procedure Sam Cooney -Lab [facility] [place] Start: 09-15-2020 End: 09-15-2020 Patient encounter procedure Sam Cooney -CT [address] Start: 07-07-2020 End: 07-07-2020 Patient encounter procedure Sam Cooney -Pacemaker Check Start: 02-04-2020 End: 02-07-2020 Patient encounter procedure ISRAR UL SANTOS [facility] Start: 02-04-2020 End: 02-06-2020 Subsequent hospital visit by physician [address] [facility] Rm 222 [facility] CT Scan Comment on above: 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) Start: 12-21-2019 End: 12-22-2019 Evaluation and management of inpatient LESTER CHIRRI [facility] Procedures Date Procedure Procedure Detail Performing Clinician Start: 12-28-2023 CT WATCHMAN FULL CONTRAST RYAN COBB Start: 12-28-2023 Ct heart contrast ev al cardiac structure&morph Ryan Cobb MD Work Phone: Start: 10-22-2023 Lipid panel ZA VARGAS Start: 10-22-2023 Comprehensive metabo lic 2000 panel - Serum or Plasma ZA HERNÁNDEZ Start: 08-28-2023 Echo transthorc r-t 2d w/wo m-mode rec f-up/lmtd Lucas Pearce [employer]ERIFF DETECTIVE[employer]BE[employer]GUARD Work Phone: Start: 08-28-2023 Ecg routine ecg w/le ast 12 lds trcg only w/o i&r Lucas Pearce [employer]ER[employer]ECT[employer] Work Phone: Start: 08-22-2023 Creatinine [Mass/vol ume] in Serum or Plasma SAM COONEY Start: 08-22-2023 ELECTROPHYSIOLOGY PROCEDURE SAM COONEY Start: 07-31-2023 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 Za Hernández MD Work Phone: Start: 07-31-2023 Thyrotropin [Units/v olume] in Serum or Plasma Ryan Cobb MD Work Phone: Start: 11-03-2022 Dilation of urethra JUNAID BAKER Start: 08-31-2022 Transurethral prostatectomy Trung FERGUSON Start: 01-24-2022 Cystoscopy Trung SALVATORE MAYSerina Start: 10-13-2020 Assay of free thyroxine Israr Ul Santos Work Phone: Start: 10-13-2020 Assay of thyroid stimulating hormone tsh Israr Ul Santos Work Phone: Start: 10-13-2020 VITAMIN B12 & FOLATE Is rar Ul Santos Work Phone: Start: 09-15-2020 CT head/brain wo con Re agan Harmon Start: 02-04-2020 Ct head/brain w/o co ntrast [...] EVAL AND TREAT LESTER CHIRRI Start: 12-22-2019 DRUG ROOM CLERK EVAL AND TREAT GRAYSON L CHIRRI Start: [...] DTaP/Tdap/Td Vaccines (2 - Td or Tdap) [facility] Start: 10-13-2024 End: 10-13-2024 Patient encounter procedure 10/13/2024 10:30 AM EST Office Visit [facility] [address] [facility] [address] [place] [address] Za Hernández MD [address] [place] [address] [address] [place] [address] [facility] Start: 07-31-2024 Thyroid stimulating hormone measurement TSH Level [facility] Start: 04-21-2024 End: 04-21-2024 Patient encounter procedure 04/21/2024 10:30 AM EDT Office Visit [facility] [address] [facility] [address] [place] [phone] Loulou Arreguin, [employer]ER[employer] [address] [place] [address] [facility] Start: 11-20-2023 End: 11-20-2023 Patient encounter procedure 11/20/2023 7:00 AM EST Procedure Visit [facility] [address] [facility] [address] [place] [address] [facility] Start: 11-06-2023 End: 11-06-2023 Patient encounter procedure 11/06/2023 11:30 AM EST Procedure Visit [facility] [address] [place] [phone] Kylee Arreguin DPM [address] [place] [address] [facility] Start: 10-22-2023 End: 10-22-2024 Comprehensive metabolic 2000 panel - Serum or Plasma Comprehensive Metabolic Panel Lab Routine Paroxysmal atrial fibrillation (CMS/HCC) Expected: 10/22/2023 (Approximate), Expires: 10/22/2024 [facility] Service Area Work Phone: Comment on above: Expected: 10/22/2023 (Approximate), Expires: 10/22/2024 Start: 10-22-2023 End: 10-22-2024 Lipid 1996 panel - Serum or Plasma Lipid Panel Lab Routine Paroxysmal atrial fibrillation (CMS/HCC) Unspecified mood (affective) disorder (CMS/HCC) Former smoker Encounter for pre-operative cardiovascular clearance Mixed hyperlipidemia Expected: 10/22/2023 (Approximate), Expires: 10/22/2024 [facility] Work Phone: Comment on above: Expected: 10/22/2023 (Approximate), Expires: 10/22/2024 Start: 09-20-2023 End: 09-20-2023 Patient encounter procedure 09/20/2023 10:30 AM EST Office Visit [address] [place] [address] Za Hernández MD [address] [place] [address] [address] [place], [place] [id number] [facility] Start: 08-28-2023 End: 08-28-2023 Admission to same day surgery center 08/28/2023 11:30 AM EST - 08/28/2023 1:30 PM EST Surgery [facility] [address] [phone] [place] [address] [place] [address] Left Atrial Appendage Closure [80077 (CPT )] [facility] Comment on above: Left Atrial Appendag e Closure [16147 (CPT )] Start: 08-28-2023 Subsequent hospital visit by physician 08/28/2023 11:30 AM EST Hospital Encounter [facility] [address] [id number] [place] [address] [place] [address] Atrial fibrillation (CMS/HCC) [facility] Comment on above: Atrial fibrillation (CMS/HCC) Start: 08-27-2023 End: 08-27-2023 Patient encounter procedure 08/27/2023 9:30 AM EST Office Visit [place] [address] [facility] [address] [place] [address] Za Hernández MD [address] [facility] [address] [place], [place] [id number] [facility] Start: 06-11-2023 FUV, Provider: Za Hernández, Status: Pen, Time: 10:45 AM FUV, Provider: Za Hernández, Status: Pen, Time: 10:45 AM [facility] 250 DO Work Phone: Start: 05-25-2023 COVID-19 Vaccine ( season) COVID-19 Vaccine ( season) [facility] Start: 05-25-2023 Influenza vaccination Influenza Vacc ine (#1) [facility] Start: 02-26-2023 FUV, Provider: Za Hernández, Status: Pen, Time: 11:15 AM FUV, Provider: Za Hernández, Status: Pen, Time: 11:15 AM -[facility] 250 DO Work Phone: Start: 10-09-2022 FUV, Provider: Loulou Myles, Status: Pen, Time: 12:30 PM FUV, Provider: Loulou Myles, Status: Pen, Time: 12:30 PM -[facility] 250 DO Work Phone: Start: 10-02-2022 FUV, Provider: Za Hernández, Status: Pen, Time: 3:15 PM FUV, Provider: Za Hernández, Status: Pen, Time: 3:15 PM -[facility] 250 DO Work Phone: Start: 09-21-2022 FUV, Provider: Za Hernández, Status: Pen, Time: 9:45 AM FUV, Provider: Za Hernández, Status: Pen, Time: 9:45 AM [facility] 250 DO Work Phone: Start: 09-11-2022 NURSEVST, Provider: JACQUELINE GONZALEZ SENIOR LABORATORY TECHNICIAN 1,[id number], Status: Pen, Time: 1:00 PM NURSEVST, Provider: JACQUELINE GONZALEZ SENIOR LABORATORY TECHNICIAN 1,[id number], Status: Pen, Time: 1:00 PM [facility] 250 DO Work Phone: Start: 08-28-2022 FUV, Provider: Za Hernández, Status: Pen, Time: 12:45 PM FUV, Provider: Za Hernández, Status: Pen, Time: 12:45 PM [facility] 250 DO Work Phone: Start: 08-10-2022 BPCHECK, Provider: Bri GONZALEZ SENIOR LABORATORY TECHNICIAN 1,[id number], Status: Pen, Time: 10:00 AM BPCHECK, Provider: JACQUELINE GONZALEZ SENIOR LABORATORY TECHNICIAN 1,[id number], Status: Pen, Time: 10:00 AM [facility] 250 DO Work Phone: Start: 08-01-2022 FUV, Provider: Erick Wise, Status: Pen, Time: 9:00 AM FUV, Provider: Erick Wise, Status: Pen, Time: 9:00 AM [facility] 250 DO Work Phone: Start: 06-15-2022 FUV, Provider: Za Hernández, Status: Pen, Time: 9:45 AM FUV, Provider: Za Hernández, Status: Pen, Time: 9:45 AM [facility] 250 DO Work Phone: Start: 10-03-2021 FUV, Provider: Loulou Myles, Status: Pen, Time: 10:00 AM FUV, Provider: Loulou Myles, Status: Pen, Time: 10:00 AM [facility] 250 DO Work Phone: Start: 10-03-2021 STRESS NUC, Provider : KAYODE ROMANO NUCLEAR 01,[id number], Status: Pen, Time: 8:00 AM STRESS NUC, Provider: KAYODE ROMANO NUCLEAR 01,[id number], Status: Pen, Time: 8:00 AM -[facility] [facility] DO Work Phone: Start: 04-13-2021 End: 04-13-2021 Virtual Visit 04/13/2021 Virtual Visit Neurology Shalom Shelton MD [address] [id number] [facility] Start: 01-24-2021 COVID-19 Vaccine (2 - Booster for Christina series) COVID-19 Vaccine (2 - Booster for Christina series) [facility] Start: 12-20-2020 Creatinine measurement Creatinine mo nitoring [place], [place] Start: 12-20-2020 HbA1c (Bld) [Mass fraction] A1C test (Diabetic or Prediabetic) [place], [place] Start: 12-20-2020 Lipid panel Lipid screen [place], [place] Start: 12-20-2020 Potassium monitoring Potassium monit oring [place], [place] Start: 08-11-2020 End: 08-11-2020 Office Visit 08/11/2020 Office Visit Neurology Shalom Shelton MD [address] [phone] [facility] Start: 05-25-2020 Influenza vaccination [place] Start: 12-22-2019 Annual Wellness Visi t (AWV) Annual Wellness Visit (AWV) [place], [place] Start: 12-02-2014 Zoster Vaccines (2 o f 3) Zoster Vaccines (2 of 3) [facility] Start: 2012 Abdominal aortic aneurysm screening Abdominal Aortic Aneurysm (AAA) Screening [facility] Start: 2012 Pneumococcal 65+ yea rs Vaccine (1 of 1 - PPSV23) Pneumococcal 65+ years Vaccine (1 of 1 - PPSV23) [place], [place] Start: 1997 Screening for malign ant neoplasm of colon Colon cancer screen colonoscopy [place], [place] Start: 1997 Shingles Vaccine (1 of 2) Shingles Vaccine (1 of 2) [place] Start: 1969 DTaP/Tdap/Td Vaccine s (1 - Tdap) DTaP/Tdap/Td Vaccines (1 - Tdap) [facility] Start: 1966 DTaP/Tdap/Td vaccine (1 - Tdap) DTaP/Tdap/Td vaccine (1 - Tdap) [place], [place] Start: 1965 Diabetes mellitus screening Diabetes Screening [facility] Start: 1965 Hepatitis C screening Hepatitis C [facility] Start: 1947 Abdominal aortic aneurysm screening AAA screen [place], [place] Start: 1947 Hepatitis C screening Hepatitis C [place], [place] Start: 1947 Lipid panel Lipid Panel [facility] Start: 1947 Medicare Annual Wellness Visit Medicare Annual Wellness Visit (AWV) [facility] Start: 1947 Screening for malign ant neoplasm of colon [facility] Angiotensin converti ng enzyme [Enzymatic activity/volume] in Serum or Plasma [facility] End: 08-28-2023 Basic metabolic 2000 panel - Serum or Plasma Basic metabolic panel Lab STAT STAT (Lab) for 1 Occurrences starting 08/28/2023 until 08/28/2023 [facility] Service Area Work Phone: Comment on above: STAT (Lab) for 1 Occ urrences starting 08/28/2023 until 08/28/2023 End: 08-31-2023 Basic metabolic 2000 panel - Serum or Plasma Basic Metabolic Panel Lab Routine Morning draw (Lab) for 3 Occurrences starting 08/29/2023 until 08/31/2023 [facility] Work Phone: Comment on above: Morning draw (Lab) f or 3 Occurrences starting 08/29/2023 until 08/31/2023 End: 08-28-2023 CBC W Auto Differential panel - Blood CBC and Auto Differential Lab STAT STAT (Lab) for 1 Occurrences starting 08/28/2023 until 08/28/2023 [facility] Work Phone: Comment on above: STAT (Lab) for 1 Occ urrences starting 08/28/2023 until 08/28/2023 End: 08-31-2023 CBC W Auto Differential panel - Blood CBC and Auto Differential Lab Routine Morning draw (Lab) for 3 Occurrences starting 08/29/2023 until 08/31/2023 [facility] Work Phone: Comment on above: Morning draw (Lab) f or 3 Occurrences starting 08/29/2023 until 08/31/2023 Comprehensive metabo lic 2000 panel - Serum or Plasma [facility] Copper measurement [facility] End: 08-28-2023 ECG 12 lead [facility] Work Phone: Comment on above: Once for 1 Occurrenc es starting 08/28/2023 until 08/28/2023 As needed until disc ontinued starting 08/28/2023 End: 08-30-2023 ECG 12 lead daily ECG 12 lead daily ECG Routine Daily for 3 Days starting 08/28/2023 until 08/30/2023, 1 completed [facility] Work Phone: Comment on above: Daily for 3 Days sta rting 08/28/2023 until 08/30/2023, 1 completed End: 08-31-2023 Glucose [Mass/volume] in Serum or Plasma POCT glucose Point of Care Testing - Docked Device Routine 4 times daily before meals and at bedtime for 3 Days starting 08/28/2023 until 08/31/2023 [facility] Work Phone: Comment on above: 4 times daily before meals and at bedtime for 3 Days starting 08/28/2023 until 08/31/2023 Hepatitis B core antibody measurement [facility] Hepatitis B virus surface Ab [Presence] in Serum [facility] End: 08-28-2023 Incentive spirometry Instruct Incentive spirometry Instruct Respiratory Care Routine Once for 1 Occurrences starting 08/28/2023 until 08/28/2023 [facility] Work Phone: Comment on above: Once for 1 Occurrenc es starting 08/28/2023 until 08/28/2023 End: 08-28-2023 Magnesium [Mass/volume] in Serum or Plasma Magnesium Lab STAT STAT (Lab) for 1 Occurrences starting 08/28/2023 until 08/28/2023 [facility] Work Phone: Comment on above: STAT (Lab) for 1 Occ urrences starting 08/28/2023 until 08/28/2023 End: 08-31-2023 Magnesium [Mass/volume] in Serum or Plasma Magnesium Lab Routine Morning draw (Lab) for 3 Occurrences starting 08/29/2023 until 08/31/2023 [facility] Work Phone: Comment on above: Morning draw (Lab) f or 3 Occurrences starting 08/29/2023 until 08/31/2023 End: 08-28-2023 Prothrombin time (PT) Protime-INR Lab STAT STAT (Lab) for 1 Occurrences starting 08/28/2023 until 08/28/2023 [facility] Work Phone: Comment on above: STAT (Lab) for 1 Occ urrences starting 08/28/2023 until 08/28/2023 End: 08-31-2023 Prothrombin time (PT) Protime-INR Lab Routine Morning draw (Lab) for 3 Occurrences starting 08/29/2023 until 08/31/2023 [facility] Work Phone: Comment on above: Morning draw (Lab) f or 3 Occurrences starting 08/29/2023 until 08/31/2023 Rheumatoid factor [Units/volume] in Serum or Plasma [facility] End: 08-28-2023 Structural heart procedure Structural heart procedure Cardiac Cath Routine Atrial fibrillation (CMS/HCC) Once for 1 Occurrences starting 08/28/2023 until 08/28/2023 [facility] Service Area Work Phone: Comment on above: Once for 1 Occurrenc es starting 08/28/2023 until 08/28/2023 Structural heart procedure Structural heart procedure Cardiac Cath Routine Atrial fibrillation (CMS/HCC) 08/28/2023 12:31 PM [facility] Work Phone: End: 08-28-2023 [facility] Work Phone: Comment on above: Once for 1 Occurrenc es starting 08/28/2023 until 08/28/2023 [facility] Immunizations Immunization Date Immunization Notes Care Provider Jared fragoso 10-09-2022 Fluzone High-Dose Quadrivalent 0.7 ML Intramuscular Suspension Prefilled Syringe [facility] Work Phone: 10-09-2022 influenza virus vacc ine, unspecified formulation [employer] [facility] 10-09-2021 Fluzone High-Dose Quadrivalent 0.7 ML Intramuscular Suspension Prefilled Syringe Kleberg E Harmon Work Phone: [facility] 250 DO Work Phone: 10-09-2021 influenza virus vacc ine, unspecified formulation [employer] [facility] 11-29-2020 Christina COVID-19 Vac cine 0.5 ML Intramuscular Suspension Sam E Harmon Work Phone: [facility] 09-06-2019 influenza virus vacc ine, unspecified formulation [employer] [facility] 09-06-2019 influenza, high dose seasonal, preservative-free Sam E [facility]: [facility] Work Phone: 06-24-2019 influenza virus vacc ine, unspecified formulation [employer] [facility] 06-24-2019 influenza, high dose seasonal, preservative-free Kleberg E Harmon Work Phone: [facility] DO Work Phone: 08-04-2018 influenza virus vacc ine, unspecified formulation [employer] [facility] 08-04-2018 influenza, high dose seasonal, preservative-free Sam E Harmon Work Phone: [place] [address] DO Work Phone: 05-25-2018 influenza virus vacc ine, unspecified formulation [employer] [facility] 05-25-2018 influenza, seasonal, injectable Sam E Harmon Work Phone: [place] [address] DO Work Phone: 09-21-2017 influenza virus vacc ine, unspecified formulation [employer] [facility] 09-21-2017 Seasonal trivalent influenza vaccine, adjuvanted, preservative free Kleberg E Harmon Work Phone: [place] [address] DO Work Phone: 09-24-2016 pneumococcal polysaccharide vaccine, 23 valent Sam E Harmon Work Phone: [facility] 10-19-2015 pneumococcal conjuga te vaccine, 13 valent Sam E Harmon Work Phone: [facility] 07-12-2015 pneumococcal polysaccharide vaccine, 23 valent Sam E Harmon Work Phone: [facility] 2014 zoster vaccine, live Sam E Harmon Work Phone: [facility] 08-08-2011 influenza virus vacc ine, unspecified formulation [employer] [facility] 08-08-2011 influenza, seasonal, injectable Kleberg E Harmon Work Phone: [facility] 250 DO Work Phone: 07-14-2009 influenza virus vacc ine, whole virus Sam Cooney Work Phone: -[facility] 250 DO Work Phone: 07-14-2009 influenza, whole Trung LACI ERS [facility] Payers Date Payer Category Payer Self-pay [id number] 2022 Medicare [id number] 2022 Unknown 2019 Medicare MEDICARE RAILROA Artem MEDICARE xxxxxxxxxxx 2019-Present [phone] [place] [address] xxxxxxxxxxx [id number] 2019 Unknown [employer] [place] MEDICARE SUPP xxxxxx-xx 2019-Present [phone] ATTN INDIVIDUAL CLAIMS [address] [place] [address] xxxxxx-xx [id number] .[id number] 2019 Unknown [id number] 2012 Medicare [id number] 1959 Medicare [id number] 1959 Medicare [id number] 1959 Unknown [id number] 1947 Unknown [id number] 2.16.840.1.126137.3.579.2 .175 1947 Unknown [id number] 2.16.840.1.704101.3.579.2 .175 1947 Unknown [id number] 2.16.840.1.285306.3.579.2 .175 1947 Unknown [id number] 2.16.840.1.882414.3.579.2 .593 1947 Unknown [id number] 2.16.840.1.618354.3.579.2 .593 1947 Unknown [id number] 2.16.840.1.963830.3.579.2 .593 1947 Unknown [id number] 2.16.840.1.780763.3.579.2 .593 1947 Unknown [id number] 2.16.840.1.196867.3.579.2 .593 1947 Unknown [id number] 2.16.840.1.013610.3.579.2 .593 1947 Unknown [id number] 2.16.840.1.759945.3.579.2 .593 1947 Unknown [id number] 2.16.840.1.765609.3.579.2 .593 1947 Unknown [id number] 2.16.840.1.845164.3.579.2 .593 1947 Unknown [id number] 2.16.840.1.657709.3.579.2 .593 1947 Unknown [id number] 2.16.840.1.899310.3.579.2 .593 1947 Unknown [id number] 2.16.840.1.831743.3.579.2 .356 1947 Unknown [id number] 2.16.840.1.343300.3.579.2 .356 1947 Unknown [id number] 2.16.840.1.675841.3.579.2 .356 1947 Unknown [id number] 2.16.840.1.121784.3.579.2 .356 1947 Unknown [id number] 2.16.840.1.281329.3.579.2 .356 1947 Unknown [id number] 2.16.840.1.629587.3.579.2 .356 1947 Unknown [id number] 2.16.840.1.657294.3.579.2 .356 1947 Unknown [id number] 2.16.840.1.929142.3.579.2 .356 1947 Unknown [id number] 2.16.840.1.646535.3.579.2 .356 1947 Unknown [id number] 2.16.840.1.581160.3.579.2 .1244 1947 Unknown [id number] 2.16.840.1.436043.3.579.2 .159 1947 Unknown [id number] 2.16.840.1.338414.3.579.2 .159 1947 Unknown [id number] 2.16.840.1.545458.3.579.2 .727 1947 Unknown [id number] 2.16.840.1.186446.3.579.2 .727 1947 Unknown [id number] 2.16.840.1.111428.3.579.2 .727 1947 Unknown [id number] 2.16.840.1.169041.3.579.2 .727 1947 Unknown [id number] 2.16.840.1.014728.3.579.2 .727 1947 Unknown [id number] 2.16.840.1.756443.3.579.2 .727 1947 Unknown [id number] 2.16.840.1.733469.3.579.2 .1246 1947 Unknown [id number] 2.16.840.1.106770.3.579.2 .1246 1947 Unknown [id number] 2.16.840.1.753552.3.579.2 .1286 1947 Unknown [id number] 2.16.840.1.257204.3.579.2 .1286 1947 Unknown [id number] 2.16.840.1.989507.3.579.2 .1259 1947 Unknown [id number] 2.16.840.1.177214.3.579.2 .1259 1947 Unknown [id number] 2.16.840.1.364977.3.579.2 .1259 1947 Unknown [id number] 2.16.840.1.593999.3.579.2 .1245 1947 Unknown [id number] 2.16.840.1.601226.3.579.2 .1245 Private Health Insurance Unknown [id number] 2.16.840.1.288349.3.579.2 .531 Unknown [id number] 2.16.840.1.113141.3.579.2 .531 Unknown [id number] 2.16.840.1.977222.3.579.2 .531 Unknown [id number] 2.16.840.1.005670.3.579.2 .531 Unknown [id number] 2.16.840.1.135597.3.579.2 .531 Social History Date Type Detail Facility Start: 02-04-2020 End: 02-27-2020 Tobacco smoking status NHIS Former smoker [facility] Start: 1945 Sex Assigned At Not on file M [facility] CHARISMA Start: 1945 Sex Assigned At Male F [facility] Start: 10-13-2020 End: 10-22-2023 Tobacco use and exposure Never used [facility]ISMA Start: 08-12-2023 End: 12-28-2023 Exposure to SARS-CoV-2 (event) Not sure [facility]ISMA Start: 06-15-2022 End: 08-22-2023 Occasional caffeine consumption Occasional caffeine consumption [facility] Comment on above: Quit ; Tea; Start: 08-29-2021 End: 12-03-2023 Tobacco smoking status Never smoked tobacco (finding) [facility] Tobacco smoking status Never [facility] Start: 06-15-2022 End: 08-22-2023 Sex Assigned At Male [facility] End: 09-24-1959 History of tobacco use Current smoker [facility] Work Phone: End: 09-24-1959 History of tobacco use Cigarette Smoker [facility] Work Phone: Start: 08-22-2023 Alcohol intake Ex-drinker (finding) [facility] Work Phone: Start: 08-13-2023 End: 10-22-2023 Alcohol intake Lifetime non-drinker (finding) [facility] Work Phone: Medical Equipment Procedure Code Equipment Code Equipment Origin al Text Equipment Identifier Dates ()[id number] [id number] FDA Start: 04-07-2020 System, Access, Fxd Dbl Curve, Watchman - [id number] Start: 08-28-2023 Device, Closure, 27mm Watchman Flx Laac - [id number] Start: 08-28-2023 Goals Date Patient Goal Desired Activity /State Functional Status Date Assessment Result Facility 12-03-2023 Functional Status N/A [facility] 07-09-2023 Functional Status N/A [facility] 04-03-2023 Functional Status N/A [facility] 01-23-2023 Functional Status N/A [facility] 01-01-2023 Functional Status N/A [facility] 11-03-2022 Functional Status N/A [facility] 10-02-2022 Functional Status N/A [facility] 06-15-2022 PHQ-9 [id number] In Re mission (0-4) [facility] 250 DO Work Phone: 04-24-2022 Functional Status N/A [facility] Clinical Notes 11-23-2019 to 12-03-2023 Za Hernández MD - 10/22/2023 11:45 AM ESTPatient InstructionsAdam Benedict MD - 08/28/2023 1:11 PM Rudy Felton [facility] - 08/28/2023 12:10 PM ESTDischarge [...] your health care provider. General instructions Take iyxu-qvu-ghpsyee and prescription medicines only as told by [...] provider. Document Revised: 05/30/2021 Document Reviewed: 05/30/2021 [employer] Patient Education 2022 [employer]. Follow Up Care 07/09/2023 11:46:47 With:MARTY BETANCOURT, Trung Frost, URL Address: [facility] [address] [place] [address] [phone] When: Unknown Comments:6 mos (increase med dosage) [facility] [place] 11-20-2023 Note Procedure Cancelatio n Documentation Entered On: 11/20/2023 10:21 EST Performed On: 11/20/2023 10:17 EST by Sahra Lizarraga RN Procedure Cancelation Documentation Surgery Procedure Cancelation : 11/20/2023 10:17 EST Surgery Procedure Cancel Reason : low hemoglobin/hematocrit. dr shaffer spoke with patient + pt's at length. pt instructed to contact primary care physician Sahra Lizarraga RN - 11/20/2023 10:17 EST [facility] 11-20-[address] Entered [...] risk situation (congregated living, hemodialysis, infusion clinic, retirement, assisted living, [place] [facility] [place], homeless nursing home, etc.)? : No Sahra Lizarraga RN - 11/20/2023 9:50 EST Checklist NPO Since : 11/20/2023 08:00 EST Last Fluid Intake : 11/20/2023 08:00 EST Last Food Intake : 11/19/2023 18:00 EST Sahra Lizarraga RN - 11/20/2023 9:50 EST Valuables Prechecklist Grid Valuables at Bedside Clothes : Pants, Shirt, Shoes, Undergarments (Comment: TO LOCKER [Sahra Lizarraga RN 11/20/2023 9:50 EST] ) Sahra Lizarraga RN 11/20/2023 9:50 EST Procedure Location : Surgery Sahra Lizarraga RN 11/20/2023 9:50 EST Surgery Prep Grid CHG Cloth Prep in SOCO : Yes Sahra Lizarraga RN 11/20/2023 9:50 EST Patient Rights Grid Surgical Consent Signed : Yes Mary Ellen Price RN 11/20/2023 9:50 EST Anesthesia Consent Signed : No Blood Consent Signed : Yes Mary Ellen Price RN 11/15/2023 13:49 EST Procedure Checklist is completed [...] Date/Time Pre-Procedure Verification : 11/19/2023 12:00 EST Elham TOLEDO Sahra 11/20/2023 10:00 EST Protocols Patient Safety Grid ID Band on and Verified : Yes Fall Risk Hand Packer/Packager : Yes Blood Band on and Verified : Yes Current H&P in Medical Record : Yes (Comment: 11/15/23 [Mary Ellen Price RN 11/15/2023 13:49 EST] ) Mary Ellen Price RN - 11/20/2023 9:50 EST Current ECG in Medical Record : Yes (Comment: 10/12/23 [Mary Ellen Price RN 11/15/2023 13:49 EST] ) Basic Benkelman : Yes (Comment: 10/12/23 [Mary Ellen Price [...] : Living will, Medical durable power of health care attorney Advance Directive Location : Family to bring in copy from home Advance Directive Additional Information : No Mary Ellen Price RN - 11/15/2023 14:17 EST Surgical Clipper Prep Surgery Clipper Prep : done in preop Sahra Lizarraga RN - 11/20/2023 9:50 EST [facility] 11-20-2023 Note SOCO Education Entere d [...] Safety : Verbalizes understanding Sahra Lizarraga RN 11/20/2023 9:51 EST Pain Management : Verbalizes understanding Speakup : Verbalizes understanding Barriers to Learning : None evident Additional Session Learner/s Present : Spouse, Daughter Mary Ellen Price RN 11/15/2023 14:16 EST [employer]Back Methodology : Explanation, Printed Material Mary Ellen Price RN 11/15/2023 13:49 EST Topic Specific Education Medication Management GRID Pain Can Be Managed,Relieved : Verbalizes understanding Mary Ellen Price RN 11/15/2023 13:49 EST Education Respiratory Care Nursing GRID Cough/Deep Breathing : Verbalizes understanding Mary Ellen Price RN 11/15/2023 13:49 EST Fall Prevention Fall Prevention Education Topics Grid Call Light Use : Verbalizes understanding Fall Prevention Protocol : Verbalizes understanding Fall Risk Factors : Verbalizes understanding Nonskid Footwear Use : Verbalizes understanding Sahra Lizarraga RN - 11/20/2023 9:51 EST Infection Control Education Dialysis Surgery - Hospital form # [id number] : Verbalizes understanding Mary Ellen Price RN 11/15/2023 13:49 EST Pain Pain Education Topics Grid Pain Assessment Tool : Verbalizes understanding Mary Ellen Price RN 11/15/2023 13:49 EST Pre Procedure / Surgery Education Procedures Tests Exams GRID Anesthesia/Sedation : Verbalizes understanding DVT Prophylaxis : Verbalizes understanding NPO : Verbalizes understanding Preoperative Instructions : Verbalizes understanding Postoperative Instructions : Verbalizes understanding Preprocedure Tests/Labs : Verbalizes understanding Preprocedure Diet : Verbalizes understanding Mary Ellen Priec RN - 11/15/2023 13:49 EST [facility] 11-15-2023 Note Patient: NEIL WILCOX Age: [...] 500 mg = 1 tabs, PRN, ORAL, [id number] acetaminophen/butalbital/caffeine 325 mg-50 mg-40 mg oral tablet = Fioricet 1 tabs, PRN, ORAL, [id number] Aspirin EC 81 mg oral delayed release [...] 2 mg = 1 caps, PRN, ORAL, [id number] losartan 100 mg oral tablet 100 mg [...] strength, No tenderness, No swelling. Integumentary: Warm, [place]. Neurologic: Alert, Oriented. Cognition and Speech: Oriented, [...] clearance and o (more content not included)... [facility] 10-22-2023 History of Present illness Narrative [...] due to atrial fibrillation, on anticoagulation. 10. [id number] at least 5. Has bled score 2 [...] redirect to the Timeline version of the Peer60 SmartLink. Wt Readings from Last 3 Encounters: [...] Daily atorvastatin (LIPITOR) 40 mg, oral, Daily veywdhxgxn-fjgdfqr-hwtrbhsq (Fiorinal) 50-325-40 mg capsule 1 capsule, oral, [...] Scribe Attestation By signing my name below, I Halie PetersonHubert Jiang LPN attest that this documentation has been [...] discussion and plan. documented in this encounter [facility] Work Phone: 10-22-2023 Instructions Phuong Atkinson CMA [...] of your visit. documented in this encounter [facility] Work Phone: 10-12-2023 Note SOCO Jamese d On: 10/12/2023 10:13 EST Performed On: [...] Education Dialysis Surgery - Hospital form # [id number] : Needs further teaching Amy Hager RN [...] ) Amy Hager RN 10/12/2023 10:10 EST [facility] 08-28-2023 Hospital course Narrative Discharge Diagnosis Atrial fibrillation ([facility]/HCC) Hospital Course S/p VINNIE closure Access: Dual [...] 40 mg tablet; Commonly known as: Lipitor icbndkyhra-ozlxuowftqqvw-kbxr 50-325-40 mg tablet cyanocobalamin 1,000 mcg tablet; [...] Center 09/20/2023 10:30 AM Za Hernández MD [id number] [place] Adam Benedict MD documented in this encounter [facility] Work Phone: 08-28-2023 History of Present illness Narrative Pharmacy Medication History Review Neil Wilcox is a 77 y.o. male admitted for Atrial fibrillation ([facility]). Pharmacy reviewed the patient's rcjpw-ib-vbwldezvi medications and allergies for accuracy. The list below reflects the updated INSTRUCTIONAL SUPPORT SPECIALIST list. Comments regarding how patient may be [...] tablet (40 mg) by mouth once daily. uwypqfnsfg-ikgfwkatkdbnl-rkqd 50-325-40 mg tablet Past Week Spouse/Significant Other, [...] Below are additional concerns with the patient's INSTRUCTIONAL SUPPORT SPECIALIST list. [facility] Transitions of Care Clinical Pharmacist Please reach out via MediSapi[employer] Chat for questions, if no response call [employer] or [employer] [facility] documented in this encounter [facility] Work Phone: 08-28-2023 Note Formatting of this n ote might be different from the original. Sedation Plan ASA 2 Mallampati class: II. Risks, benefits, and alternatives discussed with patient. [facility] Work Phone: 08-28-2023 Miscellaneous Notes Sedation Plan ASA 2 Mallampati class: II. Risks, benefits, and alternatives discussed with patient. documented in this encounter [facility] Work Phone: 08-27-2023 Hospital Discharge instructions Lucas Pearce, SHERIFF DETECTIVE-BEACH LIFEGUARD - 08/27/2023 12:20 PM EST Watchman Discharge [...] have any concerns, you may contact the Clerk Guide or if any of these symptoms become excessive, contact your concrete hopper operator or go to the emergency room. No [...] new concerning symptoms. documented in this encounter [facility] Work Phone: 07-09-2023 Hospital Discharge instructions Patient [...] urethra. Follow these instructions at home: Take wdvu-lsi-cetjbny and prescription medicines only as told by [...] provider. Document Revised: 03/29/2022 Document Reviewed: 03/29/2022 [employer] Patient Education 2022 [employer]. Follow Up Care 01/01/2023 13:25:14 With:MARTY BETANCOURT, Trung Frost, URL Address: [facility] [address] , [place] [address]- When:Within 4 Month(s) [facility] [place] 04-03-2023 Hospital Discharge instructions Patient Education [...] provider. Document Revised: 01/19/2022 Document Reviewed: 01/19/2022 [employer] Patient Education 2022 [employer]. Follow Up Care 01/23/2023 14:39:57 With:RITESH ALTAMIRANO, CHARLOTTE Meneses, URL Address: [facility] Tawanda [place] [address] When: Unknown Comments:keep appt w/ [facility] 02-22-2023 History of Present illness Narrative 77-year-old with history of atrial fibrillation, hypercoagulability related to atrial fibrillation, high [id number] score, most recently seen February 2023 and [...] Hypercoagulability due to atrial fibrillation, on anticoagulation.10. [id number] at least 5. Has bled score 2 [...] 50 mg p.o. daily and discontinue amlodipine. [facility] Jacquelin-Kayode Laguerre DO Work Phone: 01-23-2023 Hospital Discharge instructions [...] air conditioner or fan, if available. Apply qiiw-tzx-qposhyv and prescription medicines only as told by [...] well after activity or exercise. Use a economics department chair on a cool setting to dry between [...] drying your skin and with medicines. Apply fmxq-rpk-nyepkcp and prescription medicines only as told by your health care provider. Keep all follow-up visits as told by your health care provider. This is important. This information is not intended to replace advice given to you by your health care provider. Make sure you discuss any questions you have with your health care provider. Document Revised: 06/26/2022 Document Reviewed: 06/26/2022 Elsevier Patient Education 2022 [employer]. [facility] 01-01-2023 Hospital Discharge instructions Patient Education [...] reconstructed. Follow these instructions at home: Take qwlq-jzt-ivgagwj and prescription medicines only as told by [...] 10/06/2016 Document Revised: 04/23/2019 Document Reviewed: 04/23/2019 [employer] Patient Education 2020 [employer]. Follow Up Care 10/02/2022 12:40:38 With:MARTY BETANCOURT, Trung Frost, URL Address: [facility] [address] , [place] [address]- When: Unknown [facility] 11-03-2022 Hospital Discharge instructions Patient Education 11/03/2022 [...] reconstructed. Follow these instructions at home: Take vvge-mir-mrvnigo and prescription medicines only as told by [...] 10/06/2016 Document Revised: 04/23/2019 Document Reviewed: 04/23/2019 [employer] Patient Education 2020 [employer]. Follow Up Care 11/03/2022 12:06:47 With:Marisol FERGUSON MDrick R, URL Address: [address] [place] [id number]- When: Unknown [facility] [place] 10-02-2022 Hospital Discharge instructions Patient Education 10/02/2022 [...] fried and sweet foods. General instructions Take hnqb-oni-wfuxtjd and prescription medicines only as told by [...] 07/07/2010 Document Revised: 01/01/2020 Document Reviewed: 09/26/2018 [employer] Patient Education 2020 [employer]. Follow Up Care 07/24/2022 14:33:35 With:MARTY BETANCOURT, Trung Frost, URL Address: [facility] [address] , [place] [phone] When:Within 3 Month(s) [facility] History of Present illness Narrative 77-year-old [...] Hypercoagulability due to atrial fibrillation, on anticoagulation.10. [id number] at least 5. Has bled score 2 insurance changed, now able to afford Eliquis.Recommendations:1. Decrease metoprolol succinate to 25 mg p.o. [...] 3 months sooner if interval problems arise [facility] 250 DO Work Phone: 05-25-2022 History of Present [...] pressure and orthostatics5. Fall precautions were reiterated. [facility] Tucker Blair DO Work Phone: 04-24-2022 Hospital Discharge instructions [...] nerve stimulation). For women, using a medical claims examiner to prevent urine leaks. This is a [...] right after experiencing incontinence. General instructions Take genw-gjk-cwpwomh and prescription medicines only as told by [...] 10/18/2005 Document Revised: 09/20/2018 Document Reviewed: 12/20/2017 [employer] Patient Education 2020 [employer]. Follow Up Care 01/24/2022 09:45:35 With:MARTY BETANCOURT, SANDRINE MartinL Address: [facility] [address] [place] [phone] When: Unknown Comments:w/ urodynamics [facility] [place] 01-23-2022 Hospital Discharge instructions Patient Education [...] urethra. Follow these instructions at home: Take mryc-aqz-znmxbui and prescription medicines only as told by [...] 09/10/2006 Document Revised: 08/05/2019 Document Reviewed: 10/15/2017 [employer] Patient Education 2020 [employer]. Follow Up Care 12/20/2021 10:58:17 With:MARTY BETANCOURT, JOSH Martin Address: [facility] [address] , [place] [address]- When: Unknown [facility] [place] 09-24-2021 History of Present illness Narrative Assessment:1. [...] have much in the way of symptoms. -[facility] 250 DO Work Phone: 11-23-2019 History of Present illness Narrative Mr. Wilcox is a 75-year-old male seen back today for follow-up on his implanted loop recorder. He was seen initially as a consult requested by neurology. He was admitted to [facility] in [place] in November 2019 with an acute stroke. [...] seems to be stable from cardiac perspective. [facility] Work Phone: 11-23-2019 History of Present illness Narrative Patient is new to this provider. Per Dr. Reyes's prior notes:Mr. Wilcox is a 75-year-old male seen back today for follow-up on his implanted loop recorder. He was seen initially as a consult requested by neurology. He was admitted to [facility] in [place] in November 2019 with an acute stroke. [...] for him in view of his BPH. [facility] Work Phone: Chief complaint Narrative - Reported NEIL WILCOX is being seen for Discuss progress. [facility] 250 DO Work Phone: Evaluation + Plan note Future Appointments Appointment Date:01/24/2022 09:30:00 AM Scheduled Provider: Location:[facility] Appointment Type:Urology FT Appointment Date:09/04/2022 08:45:00 AM Scheduled Provider:Trung FERGUSON MD Location:[facility] Appointment Type:URO Office Visit [facility] Evaluation + Plan note Future Appointments Appointment Date:04/25/2022 12:15:00 PM Scheduled Provider: Location:[facility] Appointment Type:Urology CALL PAT FT Appointment Date:05/09/2022 11:00:00 AM Scheduled Provider: Location:[facility] Appointment Type:Urology FT Appointment Date:09/04/2022 08:45:00 AM Scheduled Provider:Trung FERGUSON MD [facility] Type:URO Office Visit [facility] Evaluation + Plan note Future Appointments Appointment Date:09/04/2022 08:45:00 AM Scheduled Provider:Trung FERGUSON MD Location:[facility] Appointment Type:URO Office Visit [facility] Evaluation + Plan note Future Appointments Appointment Date:09/29/2022 08:45:00 AM Scheduled Provider:Trung [facility]ERGUSON MD [facility] Office Visit [facility] Evaluation + Plan note Future Appointments Appointment Date:01/01/2023 11:30:00 AM Scheduled Provider:Trung FERGUSON MD Location:[facility] Appointment Type:URO Office Visit [facility] Evaluation + Plan note Future Appointments Appointment Date:01/01/2023 11:30:00 AM Scheduled Provider:Trung FERGUSON MD [facility] Appointment Type:URO Office Visit Diagnostic Tests PendingUrine Culture 10/17/22 [facility] Evaluation + Plan note Future Appointments Appointment Date:11/06/2022 09:00:00 AM Scheduled Provider: [facility] Appointment Type:URO Nurse Visit Appointment Date:01/01/2023 11:30:00 AM Scheduled Provider:Trung FERGUSON MD Location:[facility] [place] Appointment Type:URO Office Visit [facility] Evaluation + Plan note Future Appointments Appointment Date:07/09/2023 10:30:00 AM Scheduled Provider:Trung FERGUSON MD [facility]O Office Visit [facility] Evaluation + Plan note Future Appointments Appointment Date:04/03/2023 09:00:00 AM Scheduled Provider:CHARLOTTE BAKER PA-C Location:[facility] Appointment Type:URO Office Visit Appointment Date:07/09/2023 10:30:00 AM Scheduled Provider:Trung FERGUSON MD Location:[facility] Appointment Type:URO Office Visit [facility] Evaluation + Plan note Future Appointments Appointment Date:11/12/2023 11:15:00 AM Scheduled Provider:Trung FERGUSON MD Location:[facility] Appointment Type:URO Office Visit [facility] Evaluation + Plan note Future Appointments Appointment Date:06/16/2024 01:15:00 PM Scheduled Provider:Trung FERGUSON MD Location:[facility] Appointment Type:URO Office Visit [facility] Evaluation note No Assessments Infor mation Available [facility] Evaluation note No assessment inform ation available [facility] Evaluation note Diagnosis Paroxysmal atrial fibrillation (CMS/HCC)- Primary Atrial fibrillation Atrial fibrillation ([facility]/HCC)- Primary Atrial fibrillation Atrial fibrillation ([facility]/HCC) Atrial fibrillation documented in this encounter [facility] Work Phone: Evaluation note* Diagnosis Atrial fibrillation (CMS/HCC)- Primary Atrial fibrillation Atrial fibrillation (CMS/HCC) Atrial fibrillation Chronic atrial fibrillation, unspecified ([facility]/HCC) 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 Comorbid Illnesses: hypertension. * Symptoms: denies chest pain at rest, denies exertional chest pain, denies dyspnea, worsened fatigue, worsened exercise intolerance, denies palpitations, denies edema, denies orthopnea, denies dizziness and denies orthostatic dizziness. * Disease Monitoring: -[facility] 250 DO Work Phone: History of Present [...] the near future to establish anticoagulation practice. -[facility] 250 DO Work Phone: History of Present [...] the near future to establish anticoagulation practice. -[facility] Tucker Blair DO Work Phone: History of Present illness [...] medication regimen. He denies medication side effects. [facility] Tucker Blair DO Work Phone: History of Present illness [...] medication regimen. He denies medication side effects. [facility] [employer] 250 DO Work Phone: Hospital course Narrative No data available for this section [facility] Hospital Discharge instructions No data available for this section [facility] No data available for this section [facility] reason for referral (narrative)* Consultation (Routine) - Authorized Specialty Diagnoses / Procedures Referred By Contac t Referred To Contact Cardiology Diagnoses Paroxysmal atrial fibrillation (CMS/HCC) Procedures Follow Up In Cardiology Za Hernández MD [address] [address] Za Hernández MD [address] [facility] [address] [place] [address] Referral ID Status Reason Start Date Expiration Date V isits Requested Visits Authorized [id number] Authorized 10/22/2023 10/21/2024 1 1 * Consultation (Routine) - Authorized Specialty Diagnoses / Procedures Referred By Contac t Referred To Contact Cardiology Diagnoses Paroxysmal atrial fibrillation (CMS/HCC) Procedures Follow Up In Cardiology Za Hernández MD [address] [facility] [address] [place] [address] Loulou Arreguin, SHERIFF DETECTIVE-BEACH LIFEGUARD [address] [facility] [place] [address] [place] [address] Referral ID Status Reason Start Date Expiration Date V isits Requested Visits Authorized [id number] Authorized 10/22/2023 10/21/2024 1 1 [facility] Work Phone: Reason for Referral Status Reason Specialty Diagnoses / Procedures Referred By Contact Referred To Contact Not Required - [facility] Radiology Diagnoses 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) Procedures CT HEAD WO CONTRAST Ul Shalom Graham MD [address] [facility] [address] [place] [address] Specialty Diagnoses / Procedures Referred By Contac t Referred To Contact Radiology Diagnoses Atrial fibrillation, unspecified type (CMS/HCC) Procedures [place] [address] [place] [address] Referral ID Status Reason Start Date Expiration Date Visits Requested Visits Authorized [id number] Authorized Perform Procedure 11/01/2023 10/31/2024 1 1 Assessments Diagnosis 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) Advance Directives No Advanced Directives Records FoundDocuments on File Type Date Recorded Patient Rubble Placer Expl anation Advance Directives and Living Will Power of Mems Integration Engineer Latest Code Status on File Code Status Date Activated Date Inactivated Comments Full Code 12/21/2019 9:20 PM 12/22/2019 7:58 PM Advance Directive Response Recorded Date/ Time Advance Directives No October 30, 2018 10:33am Documents on File Type Date Recorded Patient Rubble Placer Expl anation ACP-Advance Directive ACP-Power of Mems Integration Engineer Latest Code Status on File Code Status [...] Decision Maker: Patient Summary Purpose Family History Relationship Condition Age at Onset Recorded Date/T radha father Pneumonia Unknown Unknown Not Specified Congestive heart failure Unknown No Family History Records Found Chief Complaint and Reason for Visit Chief Complaint pancytopenia NEW Pancytopenia Chief Complaint Cerebral Infarction Cerebral Infarction Cerebral [...] of.NEIL WILCOX is being seen for hypertension.NEIL SAUCEDOUBB is being seen for hypertension.NEIL WILCOX is being seen for hypertension.NEIL SAUCEDOUBB is being seen for a 1 month [...] WO CONTRAST Ul Shalom Graham MD [address] [address] Reason Comments laao Specialty Diagnoses / Procedures Referred By Contac t Referred To Contact Diagnoses Atrial fibrillation (CMS/HCC) Atrial fibrillation (CMS/HCC) [I48.91] Procedures MN PERQ CLSR TCAT L ATR APNDGE W/ENDOCARDIAL IMPLNT MN PERQ CLSR TCAT L ATR APNDGE W/ENDOCARDIAL IMPLNT LAAO (Left Atrial Appendage Occlusion) [place] [address] [place] [address] [facility] [address] [place] [address] Referral ID Status Reason Start Date Expiration Date Visits Re quested Visits Authorized [id number] 1 1 Reason Comments Follow-up Watchman follow up Specialty Diagnoses / Procedures Referred By Contac t Referred To Contact Radiology Diagnoses Atrial fibrillation, unspecified type (CMS/HCC) Procedures [place] [address] [address] Referral ID Status Reason Start Date Expiration Date Visits Requested Visits Authorized [id number] Authorized Perform Procedure 11/01/2023 10/31/2024 1 1 [...] section and content) DATE CREATED AUTHOR 10/14/2020 [facility] DATE CREATED AUTHOR AUTHOR'S ORGANIZ ATION 04/23/2021 [facility] DATE CREATED AUTHOR AUTHOR'S ORGANIZ ATION 10/04/2021 [facility] DATE CREATED AUTHOR AUTHOR'S ORGANIZ ATION 01/24/2023 [facility] DATE CREATED AUTHOR AUTHOR'S ORGANIZ ATION 06/15/2023 [facility] DATE CREATED AUTHOR AUTHOR'S ORGANIZ ATION 08/05/[address] [facility] DATE CREATED AUTHOR AUTHOR'S ORGANIZ ATION 09/02/2023 [facility] DATE CREATED AUTHOR AUTHOR'S ORGANIZ ATION 10/24/2023 [facility] DATE CREATED AUTHOR AUTHOR'S ORGANIZ ATION 11/21/2023 [facility] DATE CREATED AUTHOR AUTHOR'S ORGANIZ ATION 12/04/2023 [facility] DATE CREATED AUTHOR AUTHOR'S ORGANIZ ATION 01/03/2024 [facility] DATE CREATED AUTHOR AUTHOR'S ORGANIZ ATION 01/16/2024 [facility] DATE CREATED AUTHOR AUTHOR'S ORGANIZ ATION 02/13/2024 [facility] DATE CREATED AUTHOR AUTHOR'S ORGANIZ ATION 02/17/2024 [facility] DATE CREATED AUTHOR AUTHOR'S ORGANIZ ATION 02/22/2024 [facility] Goals (unrecognized section and content) Goals may [...] may be documented in an alternate section Care Team (unrecognized sect ion and content) Team Status: Active Member Role Status Dates Sam Cooney DO Primary Care Provider Active Team Status: Active Member Role Status Dates Sam Cooney DO Primary Care Provide r, Referring Provider Active Start: February 21, 2024 Bertha Cuevas MD Attending Provider Active Start: February 21, 2024 Team Status: Inactive Member Role Status Dates Sam Cooney DO Primary Care Provide r, Referring Provider Active Start: February 21, 2024 End: February 21, 2024 Bertha Cuevas MD Attending Provider Active Start: February 21, 2024 End: February 21, 2024 Team Status: Inactive Member Role Status Dates Sam Cooney DO Primary Care Provider Active Za Hernández MD Attending Provider Active Healthcare Representative Relationship Specialty Start Date End Date Sam Cooney DO [address] [place] [address] PCP - General 09/24/19 Healthcare Representative Relationship Specialty Start Date End Date Sam Cooney, [address] [place] [address] PCP - General 09/24/19 Healthcare Representative Relationship Specialty Start Date End Date Sam Cooney, [address] [place] [address] PCP - General 09/24/19 Healthcare Representative Relationship Specialty Start Date End Date Sam Cooney MD [address] [place] [address] PCP - General Family Medicine 08/13/23 Healthcare Representative Relationship Specialty Start Date End Date Sam Cooney, [address] [place] [address] PCP - General 09/24/19 Scheduled Active and [...] Indication (Select all that apply): Surgical Prophylaxis 1030 (Due) clopidogrel (Plavix) tablet 75 mg 75 mg, oral, Daily, First dose on Sun08/29/23 at 0900, For 365 days, Phase II/On Unit docusate sodium (Colace) capsule 100 mg 100 mg, oral, 2 times daily, First dose on Sun08/28/23 at 1030, Phase II/On Unit, Bowel Regimen - for prevention of constipation Hold for loose stools 1030 (Due)2100 (Due) pantoprazole (ProtoNix) EC tablet 40 [...] on Sun08/28/23 at 1217, Intraprocedure 1217 (New Bag - Prov ider: Kala Canseco RN) traMADol (Ultram) tablet [...] BE BASED ON THE PRIMARY CLINICAL RECORDS. [employer] provides no warranty or guarantee of the accuracy or completeness of information in this document.
--- NOTE | 2024-02-23 09:23 | ED_ITS ---
HPI HPI - Extremity Injury (Lower) General Chief Complaint: Altered Mental Status Stated Complaint: NAUSEA/VOMITING Time Seen by Provider: 02/23/24 09:15 Source: caregiver Mode of arrival: ambulance Limitations: altered mental status Related Data Home Medications ?Medication ?Instructions ?Recorded ?Confirmed cyanocobalamin (vitamin B-12) 1,000 mcg PO DAILY 05/20/23 01/26/24 1,000 mcg tablet doxazosin 4 mg tablet 4 mg PO DAILY 05/20/23 01/26/24 finasteride 5 mg tablet 5 mg PO DAILY 05/20/23 01/26/24 folic acid 1 mg tablet 1 mg PO DAILY 05/20/23 01/26/24 metoprolol succinate 25 mg 25 mg PO DAILY 05/20/23 01/26/24 tablet,extended release 24 hr spironolactone 25 mg tablet 25 mg PO DAILY 05/20/23 01/26/24 tolterodine 2 mg capsule,extended 2 mg PO Q24H 07/13/23 01/26/24 release 24 hr fluoxetine 40 mg capsule 40 mg PO DAILY 01/26/24 01/26/24 memantine 10 mg tablet 10 mg PO BID 01/26/24 01/26/24 aspirin 81 mg tablet,delayed 81 mg PO DAILY 01/27/24 01/27/24 release losartan 100 mg tablet 100 mg PO DAILY 01/27/24 01/27/24 Allergies Allergy/AdvReac Type Severity Reaction Status Date / Time No Known Drug Allergies Allergy Verified 01/26/24 20:17 Opioid HPI Opioid Management Most Recent Pain and Opioid Data: Last Pain Scale 6 01/29/24 11:43 Last Pain Intensity 3 01/28/24 09:40 Last ORT Total Score 4 01/27/24 00:24 Last ORT Risk Category Moderate Risk 01/27/24 00:24 [facility] Medical History (Updated 02/02/24 @ 00:00 by ) Pancytopenia ?D61.818 - Other pancytopenia (ICD-10) Compression fracture of lumbar vertebra ?S32.000A - Wedge compression fracture of unspecified lumbar vertebra, initial encounter for closed fracture (ICD-10) Multiple falls ?R29.6 - Repeated falls (ICD-10) Fracture of shoulder ?S42.90XA - Fracture of unspecified shoulder girdle, part unspecified, initial encounter for closed fracture (ICD-10) Cytopenia ?D75.9 - Disease of blood and blood-forming organs, unspecified (ICD-10) Closed lumbar fracture with cord injury ?S34.109A - Unspecified injury to unspecified level of lumbar spinal cord, initial encounter (ICD-10) ?S32.008A - Other fracture of unspecified lumbar vertebra, initial encounter for closed fracture (ICD-10) Dementia ?F03.90 - Unspecified dementia, unspecified severity, without behavioral disturbance, psychotic disturbance, mood disturbance, and anxiety (ICD-10) Afib ?I48.91 - Unspecified atrial fibrillation (ICD-10) Recurrent cerebrovascular accidents (CVAs) ?I63.9 - Cerebral infarction, unspecified (ICD-10) NPH (normal pressure hydrocephalus) ?G91.2 - (Idiopathic) normal pressure hydrocephalus (ICD-10) Multiple falls ?R29.6 - Repeated falls (ICD-10) Head injury ?S09.90XA - Unspecified injury of head, initial encounter (ICD-10) Obstructive sleep apnea ?G47.33 - Obstructive sleep apnea (adult) (pediatric) (ICD-10) BPH (benign prostatic hyperplasia) ?N40.0 - Benign prostatic hyperplasia without lower urinary tract symptoms (ICD-10) Alzheimer disease ?G30.9 - Alzheimer's disease, unspecified (ICD-10) ?F02.80 - Dementia in other diseases classified elsewhere, unspecified severity, without behavioral disturbance, psychotic disturbance, mood disturbance, and anxiety (ICD-10) Vertigo ?R42 - Dizziness and giddiness (ICD-10) Hypertension ?I10 - Essential (primary) hypertension (ICD-10) Social History Smoking status: Never smoker Highest level of school completed/degree received: high school graduate Do you think of yourself as: straight/heterosexual Gender Identity: male Exam Constitutional Vital Signs, click to edit/add: Last Vital Signs Temp 97.6 F 02/23/24 08:58 Pulse 91 H 02/23/24 09:10 Resp 23 H 02/23/24 09:10 BP 114/72 02/23/24 09:03 Pulse Ox 95 02/23/24 09:10 O2 Del Method Room Air 02/23/24 09:10 Course Vital Signs Vital signs: Vital Signs Blood Pressure 115/73 02/23/24 08:57 Temperature 97.6 F 02/23/24 08:58 Pulse Rate 91 H 02/23/24 09:10 Respiratory Rate 23 H 02/23/24 09:10 Blood Pressure 114/72 02/23/24 09:03 Pulse Oximetry 95 02/23/24 09:10 Oxygen Delivery Method Room Air 02/23/24 09:10 Discharge Plan Discharge Chief Complaint: Altered Mental Status Prescriptions / Home Meds: No Action cyanocobalamin (vitamin B-12) 1,000 mcg tablet 1,000 mcg PO DAILY doxazosin 4 mg tablet 4 mg PO DAILY finasteride 5 mg tablet 5 mg PO DAILY folic acid 1 mg tablet 1 mg PO DAILY metoprolol succinate 25 mg tablet extended release 24 hr 25 mg PO DAILY spironolactone 25 mg tablet 25 mg PO DAILY tolterodine 2 mg capsule,extended release 24hr 2 mg PO Q24H fluoxetine 40 mg capsule 40 mg PO DAILY memantine 10 mg tablet 10 mg PO BID aspirin 81 mg tablet,delayed release (DR/EC) 81 mg PO DAILY losartan 100 mg tablet 100 mg PO DAILY Print Language: Welsh Referrals: SAM PABON [Primary Care Provider] - 1 week
--- NOTE | 2024-02-23 09:37 | ED.AMS1 ---
HPI - Altered Mental Status General Chief Complaint: Altered Mental Status Stated Complaint: NAUSEA/VOMITING Time Seen by Provider: 02/23/24 09:15 Source: patient, family and caregiver Mode of arrival: ambulance Limitations: altered mental status History of Present Illness HPI narrative: Brought to us from [facility]. His is present at the bedside answering most questions. This patient is known to have dementia. They sent him in today because they think he is less active speech seems to be little more slurred. His states that she noticed slurring of the speech a couple days ago and drooping on his left eye but that resolved but it seems to be worse again today. According to his he has had some small brainstem strokes in the past that did not really affect his speech or his eye. He had some vomiting at the institution today. He is not known to be running a fever. He has not had trauma or falls. He was placed at the [facility] because of a compression fracture in his back and increased risk of falling that he is having recently. He is making some progress but not a lot at that care facility. He is got severe problems with pain in his left shoulder, they are contemplating replacement he had 2 previous surgeries on his right shoulder. [place] is oriented times person but not to situation. He is a full code. He denies any chest pain stomach pain or headache at this time. His 's biggest concern is that he does not seem to be as alert and seems to be little confused with his speech even though he is known to have the dementia. Related Data Home Medications ?Medication ?Instructions ?Recorded ?Confirmed finasteride 5 mg tablet 5 mg PO DAILY 05/20/23 02/23/24 folic acid 1 mg tablet 1 mg PO DAILY 05/20/23 02/23/24 metoprolol succinate 25 mg 25 mg PO DAILY 05/20/23 02/23/24 tablet,extended release 24 hr spironolactone 25 mg tablet 25 mg PO DAILY 05/20/23 02/23/24 tolterodine 2 mg capsule,extended 2 mg PO Q24H 07/13/23 02/23/24 release 24 hr fluoxetine 40 mg capsule 40 mg PO DAILY 01/26/24 02/23/24 memantine 10 mg tablet 10 mg PO BID 01/26/24 02/23/24 losartan 100 mg tablet 100 mg PO DAILY 01/27/24 02/23/24 acetaminophen 500 mg capsule 1,000 mg PO Q6H PRN fever or pain 02/23/24 02/23/24 aspirin 81 mg capsule 81 mg PO DAILY 02/23/24 02/23/24 cyanocobalamin (vitamin B-12) 1,000 mcg PO DAILY 02/23/24 02/23/24 1,000 mcg capsule doxazosin 4 mg tablet (Cardura) 4 mg PO DAILY 02/23/24 02/23/24 fluoxetine 40 mg capsule 40 mg PO DAILY 02/23/24 02/23/24 ondansetron HCl 4 mg tablet 4 mg PO TID-QID PRN nausea and 02/23/24 02/23/24 vomiting quetiapine 25 mg tablet (Seroquel) 12.5 mg PO BID 02/23/24 02/23/24 Allergies Allergy/AdvReac Type Severity Reaction Status Date / Time No Known Drug Allergies Allergy Verified 01/26/24 20:17 [facility] Medical History (Updated 02/02/24 @ 00:00 by ) Pancytopenia ?D61.818 - Other pancytopenia (ICD-10) Compression fracture of lumbar vertebra ?S32.000A - Wedge compression fracture of unspecified lumbar vertebra, initial encounter for closed fracture (ICD-10) Multiple falls ?R29.6 - Repeated falls (ICD-10) Fracture of shoulder ?S42.90XA - Fracture of unspecified shoulder girdle, part unspecified, initial encounter for closed fracture (ICD-10) Cytopenia ?D75.9 - Disease of blood and blood-forming organs, unspecified (ICD-10) Closed lumbar fracture with cord injury ?S34.109A - Unspecified injury to unspecified level of lumbar spinal cord, initial encounter (ICD-10) ?S32.008A - Other fracture of unspecified lumbar vertebra, initial encounter for closed fracture (ICD-10) Dementia ?F03.90 - Unspecified dementia, unspecified severity, without behavioral disturbance, psychotic disturbance, mood disturbance, and anxiety (ICD-10) Afib ?I48.91 - Unspecified atrial fibrillation (ICD-10) Recurrent cerebrovascular accidents (CVAs) ?I63.9 - Cerebral infarction, unspecified (ICD-10) NPH (normal pressure hydrocephalus) ?G91.2 - (Idiopathic) normal pressure hydrocephalus (ICD-10) Multiple falls ?R29.6 - Repeated falls (ICD-10) Head injury ?S09.90XA - Unspecified injury of head, initial encounter (ICD-10) Obstructive sleep apnea ?G47.33 - Obstructive sleep apnea (adult) (pediatric) (ICD-10) BPH (benign prostatic hyperplasia) ?N40.0 - Benign prostatic hyperplasia without lower urinary tract symptoms (ICD-10) Alzheimer disease ?G30.9 - Alzheimer's disease, unspecified (ICD-10) ?F02.80 - Dementia in other diseases classified elsewhere, unspecified severity, without behavioral disturbance, psychotic disturbance, mood disturbance, and anxiety (ICD-10) Vertigo ?R42 - Dizziness and giddiness (ICD-10) Hypertension ?I10 - Essential (primary) hypertension (ICD-10) Social History Smoking status: Never smoker Highest level of school completed/degree received: high school graduate Do you think of yourself as: straight/heterosexual Gender Identity: male Exam Constitutional Vital Signs, click to edit/add: Last Vital Signs Temp 97.6 F 02/23/24 08:58 Pulse 91 H 02/23/24 09:10 Resp 23 H 02/23/24 09:10 BP 114/72 02/23/24 09:03 Pulse Ox 95 02/23/24 09:10 O2 Del Method Room Air 02/23/24 09:10 Course Vital Signs Vital signs: Vital Signs Blood Pressure 115/73 02/23/24 08:57 Temperature 97.6 F 02/23/24 08:58 Pulse Rate 91 H 02/23/24 09:10 Respiratory Rate 23 H 02/23/24 09:10 Blood Pressure 114/72 02/23/24 09:03 Pulse Oximetry 95 02/23/24 09:10 Oxygen Delivery Method Room Air 02/23/24 09:10 Discharge Plan Discharge Chief Complaint: Altered Mental Status Prescriptions / Home Meds: No Action finasteride 5 mg tablet 5 mg PO DAILY folic acid 1 mg tablet 1 mg PO DAILY metoprolol succinate 25 mg tablet extended release 24 hr 25 mg PO DAILY spironolactone 25 mg tablet 25 mg PO DAILY tolterodine 2 mg capsule,extended release 24hr 2 mg PO Q24H fluoxetine 40 mg capsule 40 mg PO DAILY memantine 10 mg tablet 10 mg PO BID losartan 100 mg tablet 100 mg PO DAILY fluoxetine 40 mg capsule 40 mg PO DAILY aspirin 81 mg capsule 81 mg PO DAILY cyanocobalamin (vitamin B-12) 1,000 mcg capsule 1,000 mcg PO DAILY doxazosin [Cardura] 4 mg tablet 4 mg PO DAILY acetaminophen 500 mg capsule 1,000 mg PO Q6H PRN (Reason: fever or pain) quetiapine [Seroquel] 25 mg tablet 12.5 mg PO BID ondansetron HCl 4 mg tablet 4 mg PO TID-QID PRN (Reason: nausea and vomiting) Print Language: Syriac Referrals: SAM PABON [Primary Care Provider] - 1 week
--- NOTE | 2024-02-23 09:39 | CT_ITS ---
[address] [address] Patient Name: NEIL MARCELO MRN: [id number] date: 1945 Sex: M Assigned Patient Location: ER Current Patient Location: .MAIN Accession/Order Number: [id number] Exam Date: 02/23/2024 10:35 Report Date: 02/23/2024 11:33 At the request of: SULMA JETT Procedure: CT head/brain wo con EXAM: CT head/brain wo con HISTORY: Increasing confusion COMPARISON: 07/13/2023 TECHNIQUE: Axial unenhanced CT images were obtained through the brain. Individualized dose optimization technique was used for the performed procedure by employing the following: Automated exposure control, adjustment of the mA and/or kV according to patient's size, and/or the use of the iterative construction technique. Coronal and sagittal reformats were performed. FINDINGS: No acute intracranial abnormality. No acute infarct, hemorrhage or mass. Periventricular white matter hypodensity, likely chronic white matter ischemic disease. Chronic encephalomalacia of the left posterior temporal/occipital region, similar as compared to the prior examination from 07/13/2023 there is ex vacuo dilation of the left lateral ventricle posteriorly. Chronic infarct of the posterior aspect of the right frontal lobe. No midline shift. Chatman-white matter differentiation is preserved. Mild cerebral volume loss. No acute osseous abnormality. Mild mucosal thickening of the sphenoid sinus. Mastoid air cells are open. Orbits are normal. CT/CT head/brain wo con IMPRESSION: 1. No acute intracranial abnormality. No acute intracranial infarct visualized by this modality. (MRI is more sensitive). No acute intracranial hemorrhage 2. Other chronic findings as described. Electronically authenticated by: LESIA JORGENSEN Date: 02/23/2024 11:33
--- NOTE | 2024-02-23 09:40 | XR_ITS ---
The [address] [address] Patient Name: NEIL MARCELO MRN: [id number] date: 1945 Sex: M Assigned Patient Location: ER Current Patient Location: ER Accession/Order Number: [id number] Exam Date: 02/23/2024 10:30 Report Date: 02/23/2024 11:20 At the request of: SULMA JETT Procedure: XR chest 1V EXAM: XR chest 1V HISTORY: . Confusion COMPARISON: None. TECHNIQUE: View of the chest FINDINGS: Heart and vascularity are unremarkable. Lungs are free of focal infiltrates. Right shoulder arthroplasty is noted. EKG leads overlie the chest. XR/XR chest 1V IMPRESSION: 1. No acute heart or lung disease identified. 2. Right shoulder arthroplasty Electronically authenticated by: TOBI GONZALEZ Date: 02/23/2024 11:20
[2024-02-23 09:48] LABS: Bilirubin Urine NEGATIVE (NEGATIVE); Blood Urine TRACE-I (NEGATIVE); Clarity Urine CLEAR (CLEAR); Color Urine LT. YELLOW (YELLOW); Glucose Urine UA NEGATIVE (NEGATIVE); Ketones Urine NEGATIVE (NEGATIVE); Leukocyte Esterase Urine NEGATIVE (NEGATIVE); Nitrite Urine NEGATIVE (NEGATIVE); Protein Urine TRACE mg/dL (NEG/TRACE); Urobilinogen Urine 0.2 EU/dL (0.2-1.0); pH Urine 5.5 (5.0-9.0)
[2024-02-23 09:49] LABS: Urine Microscopic Indicated YES
[2024-02-23] MEDS: 0.9 % SODIUM CHLORIDE 1,000 ML 1000 ML IV (09:53)
[2024-02-23 09:56] LABS: Bacteria Urine TRACE #/HPF (NONE SEEN); Cast Seen? SEEN #/LPF (NONE SEEN); Crystals Seen? None Seen #/HPF (None Seen); Hyaline Casts Urine RARE; Mucus Urine NONE SEEN (NONE SEEN); Squamous Epithelial Cell Urine FEW #/LPF (NONE/RARE); Urine Culture Indicated NO; WBC Urine NONE SEEN #/HPF (NONE SEEN)
[2024-02-23 10:12] LABS: Hematocrit 24.5 % (42.0-54.0); Hemoglobin 8.1 g/dL (14.0-18.0); Mean Corpuscular HGB Conc 33.1 g/dL (29.9-35.2); Mean Corpuscular Hemoglobin 35.8 pg (25.9-34.0); Mean Corpuscular Volume 108.4 fL (80.0-94.0); Mean Platelet Volume 8.8 fL (9.5-13.5); Platelet Count 70 10^3/uL (150-450); Red Blood Count 2.26 10^6/uL (4.70-6.10); Red Cell Distribution Width 16.4 % (11.0-15.0); White Blood Count 1.9 10^3/uL (4.0-11.0)
[2024-02-23 10:23] LABS: Influenza Virus A Antigen Negative; Influenza Virus B Antigen Negative; Internal Control Within Normal Limits
[2024-02-23 10:31] LABS: Alanine Aminotransferase 14 U/L (16-63); Albumin Globulin Ratio 0.4; Albumin Level 2.9 g/dL (3.4-5.0); Alkaline Phosphatase 87 U/L (46-116); Anion Gap 16.7; Aspartate Amino Transferase 10 U/L (15-37); Bilirubin Total 0.6 mg/dL (0.2-1.0); Calcium 12.6 mg/dL (8.5-10.1); Carbon Dioxide 24.9 mmol/L (21.0-32.0); Chloride 101 mmol/L (98-107); Estimated GFR (African America 30 (>=60); Estimated GFR (Non-African Ame 25 (>=60); Globulin 7.6 g/dL; Glucose 120 mg/dL (74-106); Potassium 4.6 mmol/L (3.5-5.1); Sodium 138 mmol/L (136-145); Total Protein 10.5 g/dL (6.4-8.2); Troponin I High Sensitivity 21.1 pg/mL (4.0-76.1)
[2024-02-23 10:36] LABS: Segmented Neut Absolute Manual 0.91 10^3/uL (1.4-6.5)
[2024-02-23 10:37] LABS: Eosinophils Absolute Manual 0.05 10^3/uL (0.00-0.70); Lymphocytes Absolute Manual 0.83 10^3/uL (1.20-3.80); Monocytes Absolute Manual 0.03 10^3/uL (0.30-0.80); Nucleated Red Blood Cells 2
[2024-02-23 10:39] LABS: Band Neutrophils Absolute 0.1 10^3/uL (0.0-0.3)
[2024-02-23 10:54] LABS: BUN Creatinine Ratio 37.3
[2024-02-23] MEDS: CEFTRIAXONE 1,000 MG in 0.9 % SODIUM CHLORIDE 50 ML 100 MG IV (11:33)
[2024-02-23] MEDS: 0.9 % SODIUM CHLORIDE 1,000 ML 999 ML IV (11:55)
--- OUTSIDE RECORDS SUMMARY | 2024-02-23 12:21 | XMS_ITS ---
Patient Summarization (C-CDA 2.1 CCD) Created on: February 23, 2024 Neil Wilcox : 1945 Sex: Male Author Organization Sample organization Care Team Providers Care [employer] Manager Name Role Phone Eros Sam E Primary Care Provider [phone] Eros Sam Primary Care Provider [phone] Erick Wise Attending Provider Ul Santos, Israr Attending Provider [phone] Eros [place] E Primary Care Provider [phone] LESTER GAO Admitting Unavailable LESTER GAO Attending Unavailable BILLY VILLA Referring Unavailable CYNDY MADISON Consulting Unavailable BRISTOL, SAM E Primary Care Unavailable UL SANTOS, ISRAR Referring Unavailable BRISTOL, SAM E Primary Care Unavailable UL SANTOS, ISRAR Referring Unavailable BRISTOL, SAM E Primary Care Unavailable Westlake[place] Attending Provider [phone] Eros [place] Primary Care Provider [phone] Erick Wise Attending Provider [phone] Eros [place] Primary Care Provider [phone] Erick Wise Attending Provider [phone] Sam Cooney Attending Provider [phone] [place], [place] E Unavailable Unavailable Unavailable SAM COONEY Primary Care Physician [phone] Unavailable Unavailable DO Sam Cooney Primary Care Provider [phone] MD Za Hernández Attending Provider MARTY Jiang, DR NINO Consulting Unavailable MARTY ., DR NINO Attending Unavailable FERGUSON ., [...] DR VARGAS Primary Care Unavailable ARREGUIN, DR CONCHIAT Frost Admitting Unavailable EBONI PETE Consulting Unavailable [...] Attending Unavailable BRISTOL, DR VARGAS Admitting Unavailable [place], DO Vargas Primary Care Provider MD Za Hernández Attending Provider PURNIMA DAVIDSON JR Primary Care Unavailable [place], DO Vargas Primary Care Provider MD Za Hernández Attending Provider Sam Cooney DO Primary Care [facility] ider Eros, Dr. Sam Harrington Primary Care [...] Dima Arreguin, Ms. Loulou Hurt Referring Unavai lable Eros, Dr. Sam Harrington Primary Care Unavailable Rodríguez, MsDeidre Hurt Attending Dima Arreguin, MsDiedre Hurt Referring Unavai lable [place], Dr. Sam Harrington Primary Care Unavailable [place], Dr. Sam Harrington Primary Care Unavailable [place], Dr. Sam Harrington Primary Care Unavailable [place], Dr. Sam Harrington Primary Care Unavailable Eros, DO Sam Primary Care Provider MD Za Hernández Attending Provider [phone] ZA HERNÁNDEZ Attending Unavailable SAM COONEY [facility] Care Unav ailable Sam Cooney MD Primary Care Provider GUNNAR SHAFFER DO Attending Unavailabl e SHAFFER DO, GUNNAR Admitting Unavailabl e CAMILA ZEPEDA MD Referring Unavailabl e GUNNAR SHAFFER DO Attending Unavailabl e SHAFFERGUNNAR BENTON DO Admitting Unavailabl e CHARLOTTE BAKER Attending Unavailable Trung FERGUSON Attending Unavailable Trung FERGUSON Attending Unavailable Trung FERGUSON Attending Unavailable Trung FERGUSON Attending Unavailable CHARLOTTE BAKER Attending Unavailable RYAN COBB Referring Unavailable BRISTOL, SAM HARRINGTON Primary Care Unav ailable RYAN COBB Attending [...] COBB Admitting Unavailable RYAN COBB Attending Unavailable BRISTOL, SAM HARRINGTON Primary Care Unav ailable [place], DO [place] Primary Care Provider [place], DO Sam Referring Provider [phone] MD Bertha Cuevas Attending Provider [phone] Za Hernández Admitting Unavailable Za Hernández Attending Unavailable [place], [place] Primary Care Unavailable Za Hernández Attending Unavailable [place], Sam Primary Care Unavailable Za Hernández Admitting Unavailable Bertha Cuevas Admitting Unavailabl e Bertha Cuevas Attending Unavailabl e [place], Sam Primary Care Unavailable [place], [place] Referring Unavailable Za Hernández Attending Unavailable [place], [place] Primary Care Unavailable Za Hernández Admitting Unavailable Za Hernández Attending Unavailable Za Hernández Admitting Unavailable [place], [place] Primary Care Unavailable Unavailable Unavailable Unavailable Encounters Encounter Date Encounter Type Care Provider Facility Start: 06-16-2024 ambulatory Trung Santizo ty:[facility] Start: 02-21-2024 ambulatory Bertha Cuevas Fa cility:[facility] Start: 02-21-2024 End: 02-21-2024 ambulatory DO Sam Cooney Work Phone: [facility] Work Phone: Start: 02-21-2024 End: 02-21-2024 Patient encounter procedure DO Sam Cooney Work Phone: [facility] Work Phone: Start: 02-21-2024 Registered Recurring DO Sam [place] Work Phone: [facility] Work Phone: Start: 02-11-2024 End: 02-11-2024 ambulatory GRACE VAZQUEZ Not Available Start: 01-15-2024 End: 01-15-2024 ambulatory ROXANNE GIVENS [facility] Start: 12-28-2023 ambulatory SAM COONEY [facility] Start: 12-28-2023 End: 12-29-2023 ambulatory RYAN [facility] Start: 12-28-2023 End: 12-28-2023 Subsequent hospital visit by physician Fatemeh [address] [facility] Comment on above: Atrial fibrillation, unspecified type (CMS/HCC) Start: 12-03-2023 End: 12-04-2023 ambulatory Trung FERGUSON Facility:[facility] Start: 12-03-2023 End: 12-03-2023 Patient encounter procedure Trung FERGUSON [facility] Start: 11-20-2023 ambulatory GUNNAR Leonard cility:[id number] Start: 11-07-2023 End: 11-07-2023 ambulatory CAMILA ZEPEDA MD Facility:[id number] Start: 11-06-2023 Chart abstracting Kylee Arreguin DPM Work Phone: [facility] Start: 10-22-2023 End: 10-22-2023 ambulatory [facility] Start: 10-22-2023 End: 10-22-2023 Encounter for preprocedural cardiovascular examination [facility] Start: 10-22-2023 End: 10-22-2023 Office outpatient visit 25 minutes Za Hernández MD Work Phone: [facility] Comment on above: Unspecified mood (af fective) disorder (CMS/HCC) (Primary Dx); Paroxysmal atrial fibrillation (CMS/HCC); Former smoker; Encounter for pre-operative cardiovascular clearance; Presence of Watchman left atrial appendage closure device; Paroxysmal atrial fibrillation with RVR (CMS/HCC); Mixed hyperlipidemia; Primary hypertension; Pain in joint of left shoulder Start: 10-22-2023 End: 10-22-2023 Patient encounter status Za Hernández MD Work Phone: [facility] Work Phone: Start: 09-10-2023 End: 09-10-2023 ambulatory DO Sam Cooney Work Phone: [facility] Work Phone: Start: 09-10-2023 End: 09-10-2023 Patient encounter procedure DO Sam Cooney Work Phone: [facility] Start: 08-28-2023 End: 08-28-2023 Subsequent hospital visit by physician Ryan Cobb MD Work Phone: [facility] [place] Comment on above: Atrial fibrillation (CMS/HCC) (Primary Dx); Chronic atrial fibrillation, unspecified (CMS/HCC); Presence of Watchman left atrial appendage closure device Start: 08-24-2023 Evaluation and manag ement of inpatient [facility]AN [facility]camp[facility] Start: 08-22-2023 End: 08-23-2023 ambulatory SAM HARRINGTON [facility] Start: 08-22-2023 End: 08-22-2023 ambulatory [facility] Start: 08-22-2023 End: 08-22-2023 Office outpatient new 45 minutes Ryan Cobb MD Work Phone: [facility] Comment on above: Paroxysmal atrial fi brillation (CMS/HCC) (Primary Dx) Start: 08-13-2023 End: 08-13-2023 ambulatory KYLEE ARREGUIN Not Available Start: 08-09-2023 End: 08-09-2023 ambulatory Za Hernández Facility:[facility] Start: 08-09-2023 End: 08-09-2023 ambulatory DO Sam Cooney Work Phone: [facility] Work Phone: Start: 08-09-2023 End: 08-09-2023 Patient encounter procedure DO Sam Eros Work Phone: [facility] Start: 07-31-2023 End: 08-01-2023 ambulatory PURNIMA DAVIDSON JR Facility:[facility] Start: 07-31-2023 Encounter for other preprocedural examination PURNIMA DAVIDSON JR [facility] Start: 07-31-2023 End: 08-01-2023 ambulatory SHERLEY GIFFORDP Not Available Start: 07-09-2023 End: 07-10-2023 ambulatory Trung R MARTY Facility:[facility] Start: 07-09-2023 End: 07-09-2023 Patient encounter procedure Trung FERGUSON [facility] Start: 06-11-2023 Office outpatient vi sit 25 minutes Sam Cooney Work Phone: [facility] DO Work Phone: Start: 06-11-2023 ambulatory ZA HERNÁNDEZ Facility:[id number] Start: 06-07-2023 End: 06-07-[address] Sam Cooney Facility:[id number] Start: 06-07-2023 End: 06-07-2023 ambulatory DO Sam Cooney Work Phone: [facility] Work Phone: Start: 06-07-2023 End: 06-07-2023 Patient encounter procedure DO Sam Cooney Work Phone: [facility] Start: 05-08-[address] Sam Cooney Facility:[id number] Start: 05-07-2023 End: 05-07-2023 ambulatory Za Hernández Facility:[facility] Start: 05-07-2023 End: 05-07-2023 ambulatory DO Sam Cooney Work Phone: [facility] Work Phone: Start: 05-07-2023 End: 05-07-2023 Patient encounter procedure DO Sam Cooney Work Phone: [facility] Start: 04-03-2023 End: 04-04-2023 ambulatory CHARLOTTE BAKER Facility:[facility] Start: 04-03-2023 End: 04-03-2023 Patient encounter procedure [facility] Start: 02-26-2023 ambulatory Ms. Loulou Arreguin Facility: Start: 02-26-2023 Office outpatient vi sit 25 minutes Sam Cooney Work Phone: [facility] DO Work Phone: Start: 02-26-2023 Patient encounter procedure Sam Cooney Work Phone: [facility] DO Work Phone: Start: 01-23-2023 End: 01-24-2023 ambulatory DO Sam Cooney Work Phone: [facility] Work Phone: Start: 01-23-2023 End: 01-23-2023 Patient encounter procedure [facility]TE BAKER [facility] Start: 01-22-2023 End: 01-22-2023 Patient encounter procedure DO Sam Cooney Work Phone: [facility] Start: 01-22-2023 End: 01-22-2023 ambulatory DO Sam Cooney Work Phone: [facility] Work Phone: Start: 01-01-2023 End: 01-02-2023 ambulatory Trung FERGUSON Facility:[facility] [place] Start: 01-01-2023 End: 01-01-2023 Patient encounter procedure Trung FERGUSON [facility] Start: 12-08-[address] Sam Cooney Facility:[id number] Start: 12-08-2022 End: 12-08-2022 ambulatory DO Sam Cooney Work Phone: [facility] Work Phone: Start: 12-08-2022 End: 12-08-2022 Patient encounter procedure DO Sam Cooney Work Phone: [facility] Start: 11-17-2022 Patient encounter procedure Sam Cooney Work Phone: [facility] DO Work Phone: Start: 11-06-2022 End: 11-06-2022 Patient encounter procedure Trung FERGUSON [facility] Start: 11-03-2022 End: 01-10-[address] SAM COONEY Facility: Start: 11-03-2022 End: 11-03-2022 Patient encounter procedure Trung FERGUSON [facility] Start: 10-17-2022 End: 10-17-2022 Lab Drop off CHARLOTTE BAKER [facility] Start: 10-17-2022 End: 10-17-2022 Patient encounter procedure CHARLOTTE BAKER [facility] Start: 10-09-2022 ambulatory Ms. Jasso Emy Arreguin Facility: Start: 10-09-2022 FUV, Provider: Loulou Myles, Status: Pen, Time: 12:30 PM Sam Cooney Work Phone: [facility] DO Work Phone: Start: 10-09-2022 Office outpatient vi sit 15 minutes Sam Cooney Work Phone: [facility] DO Work Phone: Start: 10-09-2022 Patient encounter procedure [place] E [place] Work Phone: [facility] DO Work Phone: Start: 10-02-2022 ambulatory ZA HERNÁNDEZ Facility:[id number] Start: 10-02-2022 Office outpatient vi sit 25 minutes [place] E [place] Work Phone: [facility] DO Work Phone: Start: 10-02-2022 End: 10-02-2022 Patient encounter procedure Trung FERGUSON [facility] Start: 09-19-2022 Rx Renewal [place] E Brist ol Work Phone: [facility] DO Work Phone: Start: 09-11-2022 Office outpatient vi sit 10 minutes Sam E [place] Work Phone: [facility] DO Work Phone: Start: 09-11-2022 ambulatory ZA HERNÁNDEZ Facility:[id number] Start: 09-04-2022 End: 09-04-2022 Patient encounter procedure Trung FERGUSON [facility] Start: 09-02-2022 Encounter for preprocedural laboratory examination DR TRUNG FERGUSON . [facility] Start: 08-31-2022 End: 09-01-[address] TRUNG FERGUSON . Facility:H1 Start: 08-29-2022 End: 08-30-[address] TRUNG FERGUSON . Facility:H1 Start: 08-29-2022 End: 08-30-2022 Encounter for preprocedural laboratory examination DR TRUNG FERGUSON . Facility:H1 Start: 08-28-2022 Office outpatient vi sit 25 minutes Sam E [place] Work Phone: [facility] DO Work Phone: Start: 08-25-2022 End: 08-26-[address] SAM COONEY Facility:H1 Start: 08-22-2022 End: 08-23-[address] TRUNG FERGUSON . Facility:H1 Start: 08-14-2022 Telephone encounter Sam cerna Work Phone: [facility] DO Work Phone: Start: 07-20-[address] TRUNG FERGUSON . Fac ility:H1 Start: 07-14-2022 End: 07-15-[address] TRUNG FERGUSON . Facility:H1 Start: 06-30-2022 Encounter for preprocedural cardiovascular examination DR TRUNG FERGUSON . [facility] Start: 06-30-2022 Encounter for preprocedural laboratory examination DR TRUNG FERGUSON . [facility] Start: 06-30-2022 End: 07-01-[address] TRUNG FERGUSON . Facility:H1 Start: 06-28-2022 End: 06-29-[address] TRUNG FERGUSON . Facility:H1 Start: 06-28-2022 End: 06-29-2022 Encounter for preprocedural cardiovascular examination DR TRUNG FERGUSON . Facility:H1 Start: 06-15-2022 Office outpatient vi sit 15 minutes Sam Cooney Work Phone: [facility] DO Work Phone: Start: 06-15-2022 Patient encounter procedure Sam Cooney Work Phone: [facility] DO Work Phone: Start: 04-24-2022 End: 05-10-2022 Pre-admission assessment Trung FERGUSON [facility] Start: 04-24-2022 End: 04-24-2022 Patient encounter procedure Trung FERGUSON [facility] Start: 04-12-2022 Telephone encounter Sam Peterson ristol Work Phone: [facility] DO Work Phone: Start: 04-08-2022 End: 04-08-[address] CONCHITA ARREGUIN Facility:H1 Start: 02-17-2022 End: 04-05-[address] SAM COONEY Facility:H1 Start: 01-23-2022 End: 01-23-2022 Patient encounter procedure Trung Santosh FERGUSON [facility] Start: 08-31-2021 Office outpatient vi sit 15 minutes Sam Cooney Work Phone: [facility] DO Work Phone: Start: 02-07-2021 End: 02-07-2021 Patient encounter procedure Sam Cooney Work Phone: -[facility] [place] Start: 01-07-2021 End: 01-07-2021 Patient encounter procedure Sam Cooney Work Phone: -[facility] Start: 10-13-2020 End: 10-14-2020 Patient encounter procedure ISRAR UL [facility] Start: 10-13-2020 End: 10-13-2020 Subsequent hospital visit by physician Sam CRAIGZ Laboratory Start: 10-08-2020 End: 10-08-2020 Patient encounter procedure Sam Cooney -[facility] Start: 2020 End: 2020 Patient encounter procedure Sam Cooney -Lab Main [place] Start: 09-15-2020 End: 09-15-2020 Patient encounter procedure Sam Cooney -CT [address] Start: 07-07-2020 End: 07-07-2020 Patient encounter procedure Sam Cooney -[facility] Start: 02-04-2020 End: 02-07-2020 Patient encounter procedure ISRAR UL 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) Start: 12-21-2019 End: 12-22-2019 Evaluation and management of inpatient LESTER GAO [facility] Medical Equipment Procedure Code Equipment Code Equipment Origin al Text Equipment Identifier Dates [id number] [id number] Start: 04-07-2020 System, Access, Fxd Dbl Curve, Watchman - [id number] Start: 08-28-2023 Device, Closure, 27mm Watchman Flx Laac - [id number] Start: 08-28-2023 Goals Date Patient Goal Desired Activity /State Immunizations Immunization Date Immunization Notes Care Provider Jared fragoso 10-09-2022 Fluzone High-Dose Quadrivalent 0.7 ML Intramuscular Suspension Prefilled Syringe Sam E [place] Work Phone: [facility] 250 DO Work Phone: 10-09-2022 influenza virus vacc ine, unspecified formulation Newser [facility] 10-09-2021 Fluzone High-Dose Quadrivalent 0.7 ML Intramuscular Suspension Prefilled Syringe [place] E [place] Work Phone: [facility] 250 DO Work Phone: 10-09-2021 influenza virus vacc ine, unspecified formulation Newser [facility] 11-29-2020 Christina COVID-19 Vac cine 0.5 ML Intramuscular Suspension [place] E [place] Work Phone: [facility] 09-06-2019 influenza virus vacc ine, unspecified formulation Newser [facility] 09-06-2019 influenza, high dose seasonal, preservative-free [place] E [place] Work Phone: [facility] 250 DO Work Phone: 06-24-2019 influenza virus vacc ine, unspecified formulation Trung [employer] [facility] 06-24-2019 influenza, high dose seasonal, preservative-free Sam E [place] Work Phone: [place] [address] DO Work Phone: 08-04-2018 influenza virus vacc ine, unspecified formulation Newser [facility] 08-04-2018 influenza, high dose seasonal, preservative-free [place] E [place] Work Phone: [place] [address] DO Work Phone: 05-25-2018 influenza virus vacc ine, unspecified formulation Trung [employer] [facility] 05-25-2018 influenza, seasonal, injectable [place] E [place] Work Phone: [place] [address] DO Work Phone: 09-21-2017 influenza virus vacc ine, unspecified formulation Trung [employer] [facility] 09-21-2017 Seasonal trivalent influenza vaccine, adjuvanted, preservative free [place] E [place] Work Phone: [place] [address] DO Work Phone: 09-24-2016 pneumococcal polysaccharide vaccine, 23 valent Sam E [place] Work Phone: [facility] 10-19-2015 pneumococcal conjuga te vaccine, 13 valent Sam E [place] Work Phone: [facility] 07-12-2015 pneumococcal polysaccharide vaccine, 23 valent Sam E [place] Work Phone: [facility] 2014 zoster vaccine, live Sam Meneses [place] Work Phone: [facility] 08-08-2011 influenza virus vacc ine, unspecified formulation Trung FERGUSON [facility] 08-08-2011 influenza, seasonal, injectable Sam E [place] Work Phone: [facility] [employer] 250 DO Work Phone: 07-14-2009 influenza virus vacc ine, whole virus Sam Meneses [place] Work Phone: [facility] [employer] 250 DO Work Phone: 07-14-2009 influenza, whole Trung [facility] Medications Current Medications Medication Drug Class(es) Dates [...] three times daily as needed for pain Gfwhzvfqlk-CVTB-Kbyagfoe 50-325-40 MG Or al Tablet TAKE 1 TABLET 3 TIMES DAILY NEEDED FOR PAIN. Quantity: 0 Refills: 0 Ordered: 18-Jul-2021 DO Start : 18-Jan-2021 Active Start: 05-19-2019 butalbital-sadie taminophen-caffeine (FIORICET, ESGIC) 50-325-40 MG per tablet Take by mouth 0 05/19/2019 Active Start: 05-19-2019 End: 02-21-2024 Lybjcxieoy-Nrvfpzqaiblfi-Ysf f Discontinued 1 TAB PO As Directed May 19, 2019 12:00am February 21, 2024 2:58pm [id number] 200 actuat albuterol 0.09 mg/actuat metered dose [...] by mouth every four hours as needed uxudovklhg-vbzwffx-hioknfks (Fiorinal) 50-325-40 mg capsule Take 1 capsule [...] Start: 01-21-2021 take 1 capsule by mo [facility] once daily FLUoxetine (PROzac) 20 mg capsule Take 1 capsule (20 mg) by mouth once daily. 0 01/21/2021 Active Start: 05-19-2019 End: 02-27-2020 take 20 mg by mouth once daily Fluoxetine Discontinued 20 MG PO Daily May 19, 2019 12:00am February 27, 2020 4:19pm take 1 tablet by renny th once [...] weeks. if no improvement contact office., [id number], 175, cm, 01/23/23 14:14:00 EDT, Height/Length Dosing, [...] 0 Active take 1 capsule by mo [facility] once daily before breakfast Levothyroxine Sodium 125 [...] hydrochloride 10 mg oral tablet (11 sources) R-irlemv-K-aspartate Receptor Antagonist Start: 02-21-2024 take 10 mg [...] mouth once daily. 0 07/09/2023 Active Start: 06-05-2023 take 1 tablet by renny th once [...] Twice daily April 07, 2020 12:00am thyroid (detention) 90 mg oral tablet (20 sources) Start: 02-27-2020 take 1 tablet by mouth once daily in the morning Thyroid (Pork) ([place] Thyroid) 90 mg tablet Active 90 MG PO Every morning February 27, 2020 12:00am Start: 12-29-2019 [place] Thyroid Oral, Daily, Refills(s) 0 Start Date: [...] dinnertime., # 60 cap(s), Refills(s) 11, Pharmacy: [id number], tino Briggs, 12/03/23 15:27:00 EDT, Height/Length Dosing, 80, kg, 12/03/23 15:27:00 EDT, Weight Dosing Start Date: 12/03/23 Status: Ordered Start: 07-09-2023 take 1 capsule by mo ut every twenty-four hours in the morning tolterodine LA (Detrol LA) 2 MG 24 hr capsule Take 2 mg by mouth in the morning. 0 07/09/2023 Active Start: 01-23-2022 take 1 capsule by mo uth every other day tolterodine 4 mg Cap-ER 4 mg = 1 cap(s), Oral, Every other day, # 30 cap(s), Refills(s) 6, Pharmacy: [facility]/pharmacy #[id number], 175, cm, 01/23/22 13:07:00 EDT, Height/Length Dosing, 83, kg, 01/23/22 13:07:00 EDT, Weight Dosing Start Date: 01/23/22 Status: Ordered Start: 01-23-2022 take 1 capsule by [facility] once daily tolterodine 4 mg Cap-ER 4 mg = 1 cap(s), Oral, Daily, # 30 cap(s), Refills(s) 6, Pharmacy: [facility]/pharmacy #[id number], 175, cm, 01/23/22 13:07:00 EDT, Height/Length Dosing, 83, kg, 01/23/22 13:07:00 EDT, Weight Dosing Start Date: 01/23/22 Status: Ordered Start: 09-27-2020 take 1 capsule by [facility] once daily tolterodine 2 mg Cap-ER 2 mg = 1 cap(s), Oral, Daily, # 30 cap(s), Refills(s) 11, Pharmacy: [facility]/pharmacy #[id number], 175, cm, 07/09/23 11:06:00 EDT, [...] 1 tablet by renny th once daily cyanocobalamin (Vitamin B-12) 1,000 mcg [...] 0 Active take 2 tablets by mo ut every hour, then take 2 tablets by mouth every hour Amoxicillin 500 MG Oral Capsule take 2 tablets 1hr prior to dental procedure, take 2 tablets 1 hr post detal procedure Quantity: 4 Refills: 0 Ordered: 18-Sep-2023 DO Active atorvastatin 40 mg oral tablet [...] procedure, # 2 tab(s), Refills(s) 0, Pharmacy: [facility]/pharmacy #[id number], 175, cm, 01/23/22 13:07:00 EDT, [...] Apply as needed prior to self dilation, [facility]/pharmacy #[id number], 175, cm, 11/03/22 13:03:00 EST, Height/Length Dosing, 82.8, kg, 11/03/22 13:03:00 EST, Weight Dosing Start Date: 12/01/22 Stop Date: 12/01/22 Status: Ordered Start: 12-01-2022 End: 12-01-2022 Glydo 2% topical gel with ap plicator 11 mL 0.2 gm, 10 mL, Topical, As Directed, 30 mL, Refill(s) 6, Apply as needed prior to self dilation, [facility]/pharmacy #[id number], 175, cm, 11/03/22 13:03:00 EST, Height/Length Dosing, 82.8, kg, 11/03/22 13:03:00 EST, Weight Dosing Start Date: 12/01/22 Stop Date: 12/01/22 Status: Ordered Start: 12-01-2022 End: 12-01-2022 Glydo 2% topical gel with ap plicator 11 mL 0.2 gm, 10 mL, Topical, As Directed, 30 mL, Refill(s) 6, Apply as needed prior to self dilation, [facility]/pharmacy #[id number], 175, cm, 11/03/22 13:03:00 EST, Height/Length Dosing, 82.8, kg, 11/03/22 13:03:00 EST, Weight Dosing Start Date: 12/01/22 Stop Date: 12/01/22 Status: Ordered Start: 12-01-2022 End: 12-01-2022 Glydo 2% topical gel with ap plicator 11 mL 0.2 gm, 10 mL, Topical, As Directed, 30 mL, Refill(s) 6, Apply as needed prior to self dilation, [facility]/pharmacy #[id number], 175, cm, 11/03/22 13:03:00 EST, [...] 0 Refills: 0 Ordered: 11-Jun-2023 DO Active Payers Date Payer Category Payer Self-pay [id number] 2022 Medicare [id number] 2022 Unknown 2019 Medicare MEDICARE RAILROA D MEDICARE xxxxxxxxxxx 2019-Present [phone] [place] [address] xxxxxxxxxxx [id number] 2019 Unknown [employer] [place] MEDICARE SUPP [id number] 2019-Present [phone] ATTN INDIVIDUAL CLAIMS [address] [place] [address] xxxxxx-xx [id number] .[id number] 2019 Unknown [id number] 2012 Medicare [id number] 1959 Medicare [id number] 1959 Medicare [id number] 1959 Unknown [id number] 1947 Unknown [id number] 2.16.840.1.451049.3.579.2 .175 1947 Unknown [id number] 2.16.840.1.869526.3.579.2 .175 1947 Unknown [id number] 2.16.840.1.890704.3.579.2 .175 1947 Unknown [id number] 2.16.840.1.764887.3.579.2 .593 1947 Unknown [id number] 2.16.840.1.302485.3.579.2 .593 1947 Unknown [id number] 2.16.840.1.715546.3.579.2 .593 1947 Unknown [id number] 2.16.840.1.548365.3.579.2 .593 1947 Unknown [id number] 2.16.840.1.060193.3.579.2 .593 1947 Unknown [id number] 2.16.840.1.404680.3.579.2 .593 1947 Unknown [id number] 2.16.840.1.501201.3.579.2 .593 1947 Unknown [id number] 2.16.840.1.820532.3.579.2 .593 1947 Unknown [id number] 2.16.840.1.793332.3.579.2 .593 1947 Unknown [id number] 2.16.840.1.537279.3.579.2 .593 1947 Unknown [id number] 2.16.840.1.471393.3.579.2 .593 1947 Unknown [id number] 2.16.840.1.493358.3.579.2 .356 1947 Unknown [id number] 2.16.840.1.239565.3.579.2 .356 1947 Unknown [id number] 2.16.840.1.560744.3.579.2 .356 1947 Unknown [id number] 2.16.840.1.268084.3.579.2 .356 1947 Unknown [id number] 2.16.840.1.001101.3.579.2 .356 1947 Unknown [id number] 2.16.840.1.069317.3.579.2 .356 1947 Unknown [id number] 2.16.840.1.337048.3.579.2 .356 1947 Unknown [id number] 2.16.840.1.542674.3.579.2 .356 1947 Unknown [id number] 2.16.840.1.610846.3.579.2 .356 1947 Unknown [id number] 2.16.840.1.071142.3.579.2 .1244 1947 Unknown [id number] 2.16.840.1.119696.3.579.2 .159 1947 Unknown [id number] 2.16.840.1.747064.3.579.2 .159 1947 Unknown [id number] 2.16.840.1.397902.3.579.2 .727 1947 Unknown [id number] 2.16.840.1.998456.3.579.2 .727 1947 Unknown [id number] 2.16.840.1.086750.3.579.2 .727 1947 Unknown [id number] 2.16.840.1.300042.3.579.2 .727 1947 Unknown [id number] 2.16.840.1.305447.3.579.2 .727 1947 Unknown [id number] 2.16.840.1.759590.3.579.2 .727 1947 Unknown [id number] 2.16.840.1.793726.3.579.2 .1246 1947 Unknown [id number] 2.16.840.1.172283.3.579.2 .1246 1947 Unknown [id number] 2.16.840.1.197425.3.579.2 .1286 1947 Unknown [id number] 2.16.840.1.704238.3.579.2 .1286 1947 Unknown [id number] 2.16.840.1.223594.3.579.2 .1259 1947 Unknown [id number] 2.16.840.1.954312.3.579.2 .1259 1947 Unknown [id number] 2.16.840.1.668695.3.579.2 .1259 1947 Unknown [id number] 2.16.840.1.301533.3.579.2 .1245 1947 Unknown [id number] 2.16.840.1.152667.3.579.2 .1245 Private Health Insurance Unknown [id number] 2.16.840.1.049382.3.579.2 .531 Unknown [id number] 2.16.840.1.455546.3.579.2 .531 Unknown [id number] 2.16.840.1.867497.3.579.2 .531 Unknown [id number] 2.16.840.1.482174.3.579.2 .531 Unknown [id number] 2.16.840.1.015330.3.579.2 .531 Plan of Treatment Date Care Activity Detail Author Start: 05-20-2033 DTaP/Tdap/Td Vaccine s (2 - Td or Tdap) DTaP/Tdap/Td Vaccines (2 - Td or Tdap) [facility] Start: 10-13-2024 End: 10-13-2024 Patient encounter procedure 10/13/2024 10:30 AM EST Office Visit [address] [place] [address] Za Hernández MD [address] [place] [address] [address] [place], [place] [id number] [facility] Start: 07-31-2024 Thyroid stimulating hormone measurement TSH Level [facility] Start: 04-21-2024 End: 04-21-2024 Patient encounter procedure 04/21/2024 10:30 AM EDT Office Visit [facility] [address] [facility] [address] [place] [address] Loulou Arreguin, CROP PICKER-PHYS ASSISTANT [address] [facility] [address], [address] [place] [address] [facility] Start: 11-20-2023 End: 11-20-2023 Patient encounter procedure 11/20/2023 7:00 AM EST Procedure Visit [place] [address] [place] [address] [facility] Start: 11-06-2023 End: 11-06-2023 Patient encounter procedure 11/06/2023 11:30 AM EST Procedure Visit [facility] [address] [place] [phone] Kylee Arreguin DPM [address] [place] [address] [facility] Start: 10-22-2023 End: 10-22-2024 Comprehensive metabolic 2000 panel - Serum or Plasma Comprehensive Metabolic Panel Lab Routine Paroxysmal atrial fibrillation (CMS/HCC) Expected: 10/22/2023 (Approximate), Expires: 10/22/2024 [facility] Service Area Work Phone: Comment on above: Expected: 10/22/2023 (Approximate), Expires: 10/22/2024 Start: 10-22-2023 End: 10-22-2024 Lipid 1996 panel - Serum or Plasma Lipid Panel Lab Routine Paroxysmal atrial fibrillation (CMS/HCC) Unspecified mood (affective) disorder (CMS/HCC) Former smoker Encounter for pre-operative cardiovascular clearance Mixed hyperlipidemia Expected: 10/22/2023 (Approximate), Expires: 10/22/2024 [facility] Work Phone: Comment on above: Expected: 10/22/2023 (Approximate), Expires: 10/22/2024 Start: 09-20-2023 End: 09-20-2023 Patient encounter procedure 09/20/2023 10:30 AM EST Office Visit [facility] [address] [facility] [address] [place] [address] Za Hernández MD [address] [place] [address] [address] [place] [address] [facility] Start: 08-28-2023 End: 08-28-2023 Admission to same day surgery center 08/28/2023 11:30 AM EST - 08/28/2023 1:30 PM EST Surgery [facility] [address] [phone] [place] [address] [place] [address] Left Atrial Appendage Closure [21909 (CPT )] [facility] Comment on above: Left Atrial Appendag e Closure [10071 (CPT )] Start: 08-28-2023 Subsequent hospital visit by physician 08/28/2023 11:30 AM EST Hospital Encounter [facility] [address] [phone] [place] [address] [place] [address] Atrial fibrillation (CMS/HCC) [facility] Comment on above: Atrial fibrillation (CMS/HCC) Start: 08-27-2023 End: 08-27-2023 Patient encounter procedure 08/27/2023 9:30 AM EST Office Visit [facility] [address] [phone] Za Hernández MD [address] [place] [address] [address] [place] [address] [facility] Start: 06-11-2023 FUV, Provider: Za Hernández, Status: Pen, Time: 10:45 AM FUV, Provider: Za Hernández, Status: Pen, Time: 10:45 AM [place] [address] DO Work Phone: Start: 05-25-2023 COVID-19 Vaccine ( season) COVID-19 Vaccine ( season) [facility] Start: 05-25-2023 Influenza vaccination Influenza Vacc ine (#1) [facility] Start: 02-26-2023 FUV, Provider: Za Hernández, Status: Pen, Time: 11:15 AM FUV, Provider: Za Hernández, Status: Pen, Time: 11:15 AM -[facility] [address] DO Work Phone: Start: 10-09-2022 FUV, Provider: Loulou Myles, Status: Pen, Time: 12:30 PM FUV, Provider: Loulou Myles, Status: Pen, Time: 12:30 PM [facility] 250 DO Work Phone: Start: 10-02-2022 FUV, Provider: Za Hernández, Status: Pen, Time: 3:15 PM FUV, Provider: Za Hernández, Status: Pen, Time: 3:15 PM [facility] [address] DO Work Phone: Start: 09-21-2022 FUV, Provider: Za Hernández, Status: Pen, Time: 9:45 AM FUV, Provider: Za Hernández, Status: Pen, Time: 9:45 AM [facility] 250 DO Work Phone: Start: 09-11-2022 NURSEVST, Provider: JACQUELINE GONZALEZ CLOSER ON 1,[id number], Status: Pen, Time: 1:00 PM NURSEVST, Provider: JACQUELINE GONZALEZ CLOSER ON 1,[id number], Status: Pen, Time: 1:00 PM [facility] 250 DO Work Phone: Start: 08-28-2022 FUV, Provider: Za Hernández, Status: Pen, Time: 12:45 PM FUV, Provider: Za Hernández, Status: Pen, Time: 12:45 PM [facility] 250 DO Work Phone: Start: 08-10-2022 BPCHECK, Provider: Lashon GONZALEZ CLOSER ON 1,[id number], Status: Pen, Time: 10:00 AM BPCHECK, Provider: JACQUELINE GONZALEZ CLOSER ON 1,[id number], Status: Pen, Time: 10:00 AM [facility] 250 DO Work Phone: Start: 08-01-2022 FUV, Provider: Erick Wise, Status: Pen, Time: 9:00 AM FUV, Provider: Erick Wise, Status: Pen, Time: 9:00 AM [facility] 250 DO Work Phone: Start: 06-15-2022 FUV, Provider: Za Hernández, Status: Pen, Time: 9:45 AM FUV, Provider: Za Hernández, Status: Pen, Time: 9:45 AM [facility] 250 DO Work Phone: Start: 10-03-2021 FUV, Provider: Loulou Myles, Status: Pen, Time: 10:00 AM FUV, Provider: Loulou Myles, Status: Pen, Time: 10:00 AM [facility] 250 DO Work Phone: Start: 10-03-2021 STRESS NUC, Provider : KAYODE HHVI NUCLEAR 01,[id number], Status: Pen, Time: 8:00 AM STRESS NUC, Provider: KAYODE HHVI NUCLEAR 01,[id number], Status: Pen, Time: 8:00 AM [facility] 250 DO Work Phone: Start: 04-13-2021 End: 04-13-2021 Virtual Visit 04/13/2021 Virtual Visit Neurology Shalom Shelton MD [address] [phone] [facility] Start: 01-24-2021 COVID-19 Vaccine (2 - Booster for Christina series) COVID-19 Vaccine (2 - Booster for Christina series) [facility] Start: 12-20-2020 Creatinine measurement Creatinine mo nitoring [facility] [place], [place] Start: 12-20-2020 HbA1c (Bld) [Mass fraction] A1C test (Diabetic or Prediabetic) [place], [place] Start: 12-20-2020 Lipid panel Lipid screen [place], [place] Start: 12-20-2020 Potassium monitoring Potassium monit oring [place], [place] Start: 08-11-2020 End: 08-11-2020 Office Visit 08/11/2020 Office Visit Neurology Shalom Shelton MD [address] [place] [phone] [facility] [place] Start: 05-25-2020 Influenza vaccination [place], [place] Start: 12-22-2019 Annual Wellness Visi t (AWV) Annual Wellness Visit (AWV) [place], [place] Start: 12-02-2014 Zoster Vaccines (2 o f 3) Zoster Vaccines (2 of 3) [facility] Start: 2012 Abdominal aortic aneurysm screening Abdominal Aortic Aneurysm (AAA) Screening [facility] Start: 2012 Pneumococcal 65+ yea rs Vaccine (1 of 1 - PPSV23) Pneumococcal 65+ years Vaccine (1 of 1 - PPSV23) [place], [place] Start: 1997 Screening for malign ant neoplasm of colon Colon cancer screen colonoscopy [place], [place] Start: 1997 Shingles Vaccine (1 of 2) Shingles Vaccine (1 of 2) [place], [place] Start: 1969 DTaP/Tdap/Td Vaccine s (1 - Tdap) DTaP/Tdap/Td Vaccines (1 - Tdap) [facility] Start: 1966 DTaP/Tdap/Td vaccine (1 - Tdap) DTaP/Tdap/Td vaccine (1 - Tdap) [place], [place] Start: 1965 Diabetes mellitus screening Diabetes Screening [facility] Start: 1965 Hepatitis C screening Hepatitis C [facility] Start: 1947 Abdominal aortic aneurysm screening AAA screen [place], [place] Start: 1947 Hepatitis C screening Hepatitis C [facility] [place] Start: 1947 Lipid panel Lipid Panel [facility] Start: 1947 Medicare Annual Wellness Visit Medicare Annual Wellness Visit (AWV) [facility] Start: 1947 Screening for malign ant neoplasm of colon [facility] Angiotensin converti ng enzyme [Enzymatic activity/volume] in Serum or Plasma [facility] End: 08-28-2023 Basic metabolic 2000 panel - Serum or Plasma Basic metabolic panel Lab STAT STAT (Lab) for 1 Occurrences starting 08/28/2023 until 08/28/2023 [facility] Service Area Work Phone: Comment on above: STAT (Lab) for 1 Occ urrences starting 08/28/2023 until 08/28/2023 End: 08-31-2023 Basic metabolic 2000 panel - Serum or Plasma Basic Metabolic Panel Lab Routine Morning draw (Lab) for 3 Occurrences starting 08/29/2023 until 08/31/2023 [facility] Work Phone: Comment on above: Morning draw (Lab) f or 3 Occurrences starting 08/29/2023 until 08/31/2023 End: 08-28-2023 CBC W Auto Differential panel - Blood CBC and Auto Differential Lab STAT STAT (Lab) for 1 Occurrences starting 08/28/2023 until 08/28/2023 [facility] Work Phone: Comment on above: STAT (Lab) for 1 Occ urrences starting 08/28/2023 until 08/28/2023 End: 08-31-2023 CBC W Auto Differential panel - Blood CBC and Auto Differential Lab Routine Morning draw (Lab) for 3 Occurrences starting 08/29/2023 until 08/31/2023 [facility] Work Phone: Comment on above: Morning draw (Lab) f or 3 Occurrences starting 08/29/2023 until 08/31/2023 Comprehensive metabo lic 2000 panel - Serum or Plasma [facility] Copper measurement [facility] End: 08-28-2023 ECG 12 lead [facility] Work Phone: Comment on above: Once for 1 Occurrenc es starting 08/28/2023 until 08/28/2023 As needed until disc ontinued starting 08/28/2023 End: 08-30-2023 ECG 12 lead daily ECG 12 lead daily ECG Routine Daily for 3 Days starting 08/28/2023 until 08/30/2023, 1 completed [facility] Work Phone: Comment on above: Daily for 3 Days sta rting 08/28/2023 until 08/30/2023, 1 completed End: 08-31-2023 Glucose [Mass/volume] in Serum or Plasma POCT glucose Point of Care Testing - Docked Device Routine 4 times daily before meals and at bedtime for 3 Days starting 08/28/2023 until 08/31/2023 [facility] Work Phone: Comment on above: 4 times daily before meals and at bedtime for 3 Days starting 08/28/2023 until 08/31/2023 Hepatitis B core antibody measurement [facility] Hepatitis B virus surface Ab [Presence] in Serum [facility] End: 08-28-2023 Incentive spirometry Instruct Incentive spirometry Instruct Respiratory Care Routine Once for 1 Occurrences starting 08/28/2023 until 08/28/2023 [facility] Work Phone: Comment on above: Once for 1 Occurrenc es starting 08/28/2023 until 08/28/2023 End: 08-28-2023 Magnesium [Mass/volume] in Serum or Plasma Magnesium Lab STAT STAT (Lab) for 1 Occurrences starting 08/28/2023 until 08/28/2023 [facility] Work Phone: Comment on above: STAT (Lab) for 1 Occ urrences starting 08/28/2023 until 08/28/2023 End: 08-31-2023 Magnesium [Mass/volume] in Serum or Plasma Magnesium Lab Routine Morning draw (Lab) for 3 Occurrences starting 08/29/2023 until 08/31/2023 [facility] Work Phone: Comment on above: Morning draw (Lab) f or 3 Occurrences starting 08/29/2023 until 08/31/2023 End: 08-28-2023 Prothrombin time (PT) Protime-INR Lab STAT STAT (Lab) for 1 Occurrences starting 08/28/2023 until 08/28/2023 [facility] Work Phone: Comment on above: STAT (Lab) for 1 Occ urrences starting 08/28/2023 until 08/28/2023 End: 08-31-2023 Prothrombin time (PT) Protime-INR Lab Routine Morning draw (Lab) for 3 Occurrences starting 08/29/2023 until 08/31/2023 [facility] Work Phone: Comment on above: Morning draw (Lab) f or 3 Occurrences starting 08/29/2023 until 08/31/2023 Rheumatoid factor [Units/volume] in Serum or Plasma [facility] End: 08-28-2023 Structural heart procedure Structural heart procedure Cardiac Cath Routine Atrial fibrillation (CMS/HCC) Once for 1 Occurrences starting 08/28/2023 until 08/28/2023 [facility] Service Area Work Phone: Comment on above: Once for 1 Occurrenc es starting 08/28/2023 until 08/28/2023 Structural heart procedure Structural heart procedure Cardiac Cath Routine Atrial fibrillation (CMS/HCC) 08/28/2023 12:31 PM [facility] Work Phone: End: 08-28-2023 US Heart Transthoracic [facility] Work Phone: Comment on above: Once for 1 Occurrenc es starting 08/28/2023 until 08/28/[address] [facility] Problems Active Problems Problem Classification Problem Date [...] 2 10-22-2023 Episodic Comment on above: Quit s; Spondylosis; intervertebral disc disorders; other back problems [...] Onset: 06-15-2022 11-06-2022 Other aftercare (1 source) remote computer terminal operator (current) use of anticoagulants; Translations: [SNF CURRNT USE ANTICOAGULANTS] Onset: 09-07-2022 Episodic Other aftercare (1 source) remote computer terminal operator (current) use of aspirin; Translations: [SNF CURRENT USE OF ASPIRIN] Onset: 09-07-2022 Episodic Other aftercare (1 source) Other predatory animal exterminator (current) drug therapy; Translations: [OTH SNF CURRENT DRUG THERAPY] Onset: 09-07-2022 Episodic Other [...] Episodic Unclassified (5 sources) Onset: 08-22-2023 08-22-2023 Procedures Date Procedure Procedure Detail Performing Clinician Start: 12-28-2023 CT WATCHMAN FULL CONTRAST RYAN COBB Start: 12-28-2023 Ct heart contrast ev al cardiac structure&morph Ryan Cobb MD Work Phone: Start: 10-22-2023 Lipid panel ZA VARGAS Start: 10-22-2023 Comprehensive metabo lic 2000 panel - Serum or Plasma ZA HERNÁNDEZ Start: 08-28-2023 Echo transthorc r-t 2d w/wo m-mode rec f-up/lmtd Lucas Perace CROP PICKER-PHYS ASSISTANT Work Phone: Start: 08-28-2023 Ecg routine ecg w/le ast 12 lds trcg only w/o i&r Lucas Pearce APRN-PHYS ASSISTANT Work Phone: Start: 08-22-2023 Creatinine [Mass/vol ume] in Serum or Plasma SAM COONEY Start: 08-22-2023 ELECTROPHYSIOLOGY PROCEDURE SAM COONEY Start: 07-31-2023 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 Za Hernández MD Work Phone: Start: 07-31-2023 Thyrotropin [Units/v olume] in Serum or Plasma Ryan Cobb MD Work Phone: Start: 11-03-2022 Dilation of urethra JUNAID HAZELTAMY BAKER Start: 08-31-2022 Transurethral prostatectomy Trung FERGUSON Start: 01-24-2022 Cystoscopy Trung PHAM Start: 10-13-2020 Assay of free thyroxine Israr Ul Santos Work Phone: Start: 10-13-2020 Assay of thyroid stimulating hormone tsh Israr Ul Santos Work Phone: Start: 10-13-2020 VITAMIN B12 & FOLATE Is rar Ul Santos Work Phone: Start: 09-15-2020 CT head/brain wo con Re agan [place] Start: 02-04-2020 Ct head/brain w/o co ntrast [...] EVAL AND TREAT LESTER CHIRRI Start: 12-22-2019 CLIENT CUSTOMER MANAGER EVAL AND TREAT GRAYSON L CHIRRI Start: [...] Tonsillectomy and adenoidectomy Sam Cooney Work Phone: Results Test Name Value Interpretation Reference Range Facility CT WATCHMAN FULL CONTRASTon 12-28-2023 CT WATCHMAN FULL CONTRAST Interpreted By: Carlitos Aguilera, STUDY: CT WATCHMAN FULL CONTRAST; 12/28/2023 10:40 am INDICATION: Signs/Symptoms:A-fib, Post-Watchman. COMPARISON: CT dated 08/28/2023 ACCESSION NUMBER(S): [id number] ORDERING CLINICIAN: RYAN COBB TECHNIQUE: Using multi [...] in 12 months may be obtained. (Aron MacMahon et al., Guidelines for management of incidental pulmonary nodules detected on CT images: From the Fleischner Society 2017, Radiology. 2017 Mar;284 (1):228-243.) FLEISCHNER.ACR.IF.1 MACRO: None Signed by: Carlitos Aguilera 12/28/2023 11:32 AM Dictation workstation: [id number] [facility] No Panel Informationon 12-27 Radiology Study observation (narrative) [facility] Work Phone: 1. Status post Watchman device placement in [...] chest in 12 months may be obtained. ([place] MacMahon et al., Guidelines for management of incidental pulmonary nodules detected on CT images: From the Fleischner Society 2017, Radiology. 2017 Nestor;284 (1):228-243.) RINA.ACR.IF.1 MACRO: None Signed by: Carlitos Aguilera 12/28/2023 11:32 AM Dictation workstation: [id number] Interpreted By: Carlitos Aguilera, STUDY: CT WATCHMAN FULL CONTRAST; 12/28/2023 10:40 am INDICATION: Signs/Symptoms:A-fib, Post-Watchman. COMPARISON: CT dated 08/28/2023 ACCESSION NUMBER(S): [id number] ORDERING CLINICIAN: RYAN COBB TECHNIQUE: Using multi [...] Post-Watchman. COMPARISON: CT dated 08/28/2023 ACCESSION NUMBER(S): [id number] ORDERING CLINICIAN: RYAN COBB TECHNIQUE: Using multi [...] Carlitos Aguilera 12/28/2023 11:32 AM Dictation workstation: [id number] [facility] Work Phone: No Panel InformationOrdered By: Carlitos Aguilera on 12-28-2023 [facility] Work Phone: Ambulatory Visit Summaryon [...] spironolactone (spironolactone 25 mg Tab) thyroid desiccated ([place] Thyroid) Procedures Performed Urethral dilatation (11/03/2022), TURP [...] with MARTY BETANCOURT, Trung Frost, URL When: Comments: 6 mos (increase med dosage) Where: [facility] [address] [place] [address] [phone] Medications What How Much When Instructions Changed tolterodine (tolterodine 2 mg Cap-ER) 1 Capsules By Mouth As Directed Take one cap in the morning and one at dinnertime. Pickup at [facility]/pharmacy #[id number] Unchanged APAP/ butalbital/ caffeine (APAP/ butalbital/ caffeine [...] if questions or concerns Unchanged thyroid desiccated ([place] Thyroid) By Mouth Every day Contact prescribing physician if questions or concerns Pharmacy Information [facility]/pharmacy #[id number]: [address] [place], [place] [phone] Allergies No Known Allergies Problems Ongoing - Any problem that you are currently receiving treatment for. BPH with urinary obstruction Enuresis Hesitancy Hypertension Incomplete bladder emptying Intertrigo mild [place] (myocardial infarction) Nocturia Protein in urine Proteinuria [...] especially fr (more content not included)... Normal [facility] Patient Educationon 12-03-19 Patient Education Obstetrics and [...] health care provider. General instructions ? Take [id number] and prescription medicines only as told by [...] monitor yo (more content not included)... Normal [facility] Urology Office/Clinic Noteon 12-03-2023 Urology Office/Clinic Note [...] morning and night). New rx sent to [facility] Temitope. -Double void maneuvers 2. BPH with urinary [...] Frost, URL [facility] [address], [facility] [place] [phone] Additional Instructions: 6 mos (increase med dosage) [...] Hesitancy Hypertension Incomplete bladder emptying Intertrigo mild [place] (myocardial infarction) Nocturia Protein in urine Proteinuria Smoker Urethral meatal stenosis Urge incontinence Urinary incontinence without sensory awareness Urinary retention Historical No qualifying data Procedure/Surgical History Urethral dilatation (11/03/2022), TURP - Transurethral resection of prostate (08/31/2022), Cystoscopy (01/24/2022), Colonoscopy, Shoulder replacement. Medications APAP/butalbital/caffei ne 325 mg-50 mg-40 mg Tab [place] Thyroid, Oral, Daily atorvastatin, Oral, Daily Butapap [...] lifetime) Tobac (more content not included)... Normal [facility] Comment on above: Result Comment: Elec tronically Signed By: Trung FERGUSON MD\.br\Date and Time Signed: 12/03/23 16:17 EDT\.br\Electronically Co-Signed By: Marcela Lake.br\Date and Time Co-Signed: 12/03/23 16:16 EDT Pulling Machine Operator Details- Texton 11-20-2023 Pulling Machine Operator Details- Text Pulling Machine Operator Details Entered On: 11/20/2023 9:57 EST Performed On: 11/20/2023 9:56 EST by Sahra Lizarraga RN Pulling Machine Operator Details Transport Mode Order Detail EV : [...] : No Pacemaker Order Detail : 0 Pulling Machine Operator Details Review Status : Initial Review Nurse Collects Blood Specimens : Sahra Lerma RN - 11/20/2023 9:56 EST Normal [facility] Utilization Review Noteon Utilization Review Note EXT REC DAY 0. C ASE CANCELLED DUE TO LOW H&H. Normal [facility] Utilization Review Noteon Utilization Review Note Reg as EXT REC, no documents. NOT IPO Still no information from preaccess yet. Still no information from preaccess yet. Approved for outpatient per preaccess. Normal [facility] HEMOon 11-16-2023 Nucleated RBC 0 /100WBC Normal [facility] Comment on above: Performed By: #### 1 76374, 583971 ####[facility] [address] [place] [address]6530 Medical Director: Eh Gould MD MAN DIFFon 11-16-[address] 0.12 x1000 Normal 0.00-0.70 [facility] Comment on above: Performed By: #### 1 97895, 789422 ####[facility] [address]nqvnqng[address] [place] 6766530 Medical Director: Eh Gould MD Absolute Eos Ct 0.07 x1000 Normal 0.00-0.50 [facility] Comment on above: Performed By: #### 1 42540, 390047 ####[facility] Juszgxnl53560 [place] [address] Medical Director: Eh Gould MD Absolute Lymph Ct 1.10 x1000 Low 1.20-4.80 [facility] Comment on above: Performed By: #### 1 72864, 016220 ####[facility] Ptymzfmx67124 [place] [address] Medical Director: Eh Gould MD Absolute Neutrophil Ct 1.22 x1000 Low 1.40-8.[address] [facility] Comment on above: Performed By: #### 1 66669, 894865 ####[facility] Bwniluqv90383 [place] [address] Medical Director: Eh Gould MD Absolute Seg Ct 1.10 x1000 Low 1.40-8.80 [facility] Comment on above: Performed By: #### 1 65872, 949383 ####[facility] Iwdqyjsv20682 [place] [address] Medical Director: Eh Gould MD Band form neutrophils/100 WBC (Bld) 5 % Normal [facility] Comment on above: Performed By: #### 1 19017, 521005 ####[facility] Gqwziadr16427 [place] [address] Medical Director: Eh Gould MD Eosinophils/100 WBC (Bld) 3 % Normal [facility] Comment on above: Performed By: #### 1 74230, 836156 ####[facility] Zimieycm71001 [place] [address] Medical Director: Eh Gould MD Lymphocytes/100 WBC (Bld) 46 % Normal [facility] Comment on above: Performed By: #### 1 42328, 027492 ####[facility] Jphfzikn25101 [place] [address] Medical Director: Eh Gould MD Macrocytosis Moderate Normal [facility] Comment on above: Performed By: #### 1 94556, 579698 ####[facility] Azuqcgam54163 [place] [address] Medical Director: Eh Gould MD Segmented neutrophils/100 WBC (Bld) 46 % Normal [facility] Comment on above: Performed By: #### 1 77998, 674084 ####[facility] Udptuman19931 [place] [address] Medical Director: Eh Gould MD ABORHon 11-15-2023 ABORH Interpretation Positive Normal [facility] Comment on above: Performed By: #### C D:[id number], CD:[id number] #### [facility] [address] [place] [address] 17488 Warehouse Foreman: Eh Gould MD Patient History Check Previous Hx Normal So [facility] Comment on above: Performed By: #### C D:[id number], CD:[id number] #### [facility] [address] [place] [address] 13903 Warehouse Foreman: Eh Gould MD VS 0.8% a cells 0 Normal [facility] Comment on above: Performed By: #### C D:[id number], CD:[id number] #### [facility] [address] [place] [address] 367[address] Warehouse Foreman: Eh Gould MD VS 0.8% b cells 3+ Normal [facility] Comment on above: Performed By: #### C D:[id number], CD:[id number] #### [facility] [address] [place] [address] 19219 Warehouse Foreman: Eh Gould MD VS Anti-A Unit 4+ Normal [facility] Comment on above: Performed By: #### C D:[id number], CD:[id number] #### [facility] [address] [place] [address] Warehouse Foreman: Eh Gould MD VS Anti-B Unit 0 [facility] Comment on above: Performed By: #### C D:[id number], CD:[id number] #### [facility] [address] [place] [address] Warehouse Foreman: Eh Gould MD VS Anti-D Unit 4+ [facility] Comment on above: Performed By: #### C D:[id number], CD:[id number] #### [facility] [address] [place] [address] 9[address] Warehouse Foreman: Eh Gould MD ABSCon 11-15-2023 ABSC Final Interp Negative [facility] Comment on above: Performed By: #### C D:[id number], CD:[id number] #### [facility] [address] [place] [address] Warehouse Foreman: Eh Gould MD Pt Hx check done? Yes [facility] Comment on above: Performed By: #### C D:[id number], CD:[id number] #### [facility] [address] [place] [address] Warehouse Foreman: Eh Gould MD VS SCI Gel 0 [facility] Comment on above: Performed By: #### C D:[id number], CD:[id number] #### [facility] [address] [place] [address] 9[address]97 Warehouse Foreman: Eh Gould MD VS SCII Gel 0 [facility] Comment on above: Performed By: #### C D:[id number], CD:[id number] #### [facility] [address] [place] [address] 60786 Warehouse Foreman: Eh Gould MD DVT/VTE Risk Factor-Texton 0 [...] RN - 11/15/2023 13:48 EST Normal [facility] HEMOon 11-15-2023 DIFF? Yes Normal [facility] Comment on above: Performed By: #### 1 26846, 701158 ####[facility] [address] [place] 6[address]65[address] Medical Director: Eh Gould MD [facility] Actions See Notes Abnormal [facility] Comment on above: Result Comment: Scan for RBC Morphology Scan Slide. Perform manual diff if needed. SNV Performed By: #### 1 56727, 620766 ####[facility] [address] [place] [address] Medical Director: Eh Gould MD Erythrocyte distribution width (RBC) [Ratio] 14.5 % Normal 11.5-14.5 [facility] Comment on above: Performed By: #### 1 01751, 056420 ####[facility] [address] [place], [place] [address] Medical Director: Eh Gould MD Hematocrit (Bld) [Volume fraction] 25.3 % Low 41.0-52.0 [facility] Comment on above: Performed By: #### 1 88384, 943713 ####[facility] [address] [place], [place] [address] Medical Director: Eh Gould MD Hemoglobin (Bld) [Mass/Vol] 8.7 g/dL Low 13.5-17.5 [facility] Comment on above: Performed By: #### 1 19017, 862824 ####[facility] Aeiatzgz90719 [place] [address] Medical Director: Eh Gould MD Instr WBC 2.4 Normal [facility] Comment on above: Performed By: #### 1 35576, 238095 ####[facility] [address]woy[address] [place] [id number]) [phone] Director: Eh Gould MD MCH (RBC) [Entitic mass] 38.3 pg High 27.0-34.0 [facility] Comment on above: Performed By: #### 1 , 902771 ####[facility] Lvevkpgb35082 [place], [place] [address]) [phone] Director: Eh Gould MD MCHC (RBC) [Mass/Vol] 34.6 g/dL Normal 32.0-37.0 [facility] Comment on above: Performed By: #### 1 , 037995 ####[facility] Wlapaxzx46707 [place], [place] [address]) [phone] Director: Eh Gould MD MCV (RBC) [Entitic vol] 110.6 fL High 80.0-100.0 [facility] Comment on above: Performed By: #### 1 , 416877 ####[facility] Fdrgwdns79521 [place], [place] [address]) [phone] Director: Eh Gould MD Platelet 142 x10 Low 150-450 [facility] Comment on above: Performed By: #### 1 , 253316 ####[facility] Btonrexp89724 [place] [address] Medical Director: Eh Gould MD Platelet mean volume (Bld) [Entitic vol] 6.4 fL Low 7.4-10.4 [facility] Comment on above: Performed By: #### 1 , 228138 ####[facility] Xpghwtvu43748 [place] [address] [facility] Director: Eh Gould MD RBC 2.29 x10 Low 4.70-6.10 [facility] Comment on above: Result Comment: Note : RBC morphology is normal unless otherwise stated. Evaluation performed only if differential is requested. Performed By: #### 1 46892, 732213 ####[facility] Bexntgue23248 [place] [address] [facility] Director: Eh Gould MD WBC 2.4 x10 Low 4.5-11.0 [facility] Comment on above: Performed By: #### 1 71582, 833873 ####[facility] [place] [id number] [facility] Director: Eh Gould MD Preadmission Testing Progres s Noteon 11-15-2023 Preadmission Testing Progress Note PREADMISSION TESTING (PAT) [...] be reported to your surgeon. Normal [facility] Preadmission Testing Progress Note Faxed CBC results to Dr. Shaffer' s office. Called office and left a voice message regarding CBC results being faxed and a call back phone number. Dr. Shaffer's office phoned back, read CBC results from 11/15/23 and 10/12/23. She stated she will talk to Dr. Shaffer. No Orders received during the phone conversation. Normal [facility] UAon 11-15-2023 Appearance, U Clear Normal [facility] Comment on above: Performed By: #### 1 36261 #### [facility] [address] [place] [address] Warehouse Foreman: Eh Gould MD Bilirubin, U Negative Normal Negative [facility] Comment on above: Performed By: #### 1 17459 #### [facility] [address] [place] [address] 601[address] Warehouse Foreman: Eh Gould MD Blood, U Small Abnormal Negative [facility] Comment on above: Performed By: #### 1 77663 #### [facility] [address] [place] [address] 58928 Warehouse Foreman: Eh Gould MD Color, U Yellow Normal [facility] Comment on above: Performed By: #### 1 54389 #### [facility] [address] [place] [address] 37895 Warehouse Foreman: Eh Gould MD Glucose Qual, U Negative Normal Negative [facility] Comment on above: Performed By: #### 1 95398 #### [facility] [address] [place] [address] 19543 Warehouse Foreman: Eh Gould MD Ketones, U Negative Normal Negative [facility] Comment on above: Performed By: #### 1 19771 #### [facility] [address] [place] [address] 51202 Warehouse Foreman: Eh Gould MD Leukocyte Esterase, U Negative Normal Negative [facility] Comment on above: Performed By: #### 1 38807 #### [facility] [address] [place] [address] 52643 Warehouse Foreman: Eh Gould MD Mucous, U Occasional Normal [facility] Comment on above: Performed By: #### 1 03187 #### [facility] [address] [place] [address] 21804 Warehouse Foreman: Eh Gould MD Nitrite, U Negative Normal Negative [facility] Comment on above: Performed By: #### 1 33723 #### [facility] [address] [place] [address] 87331 Warehouse Foreman: Eh Gould MD pH, U 5.0 Normal 4.5-8.0 [facility] Comment on above: Performed By: #### 1 96057 #### [facility] [address] [place] [address] 43381 Warehouse Foreman: Eh Gould MD Protein, U Negative Normal Negative [facility] Comment on above: Performed By: #### 1 73723 #### [facility] [address] [place] [address] 88828 Warehouse Foreman: Eh Gould MD RBC/HPF, U <1 Normal 0-3 [facility] Comment on above: Performed By: #### 1 61699 #### [facility] [address] [place] [address] 80964 Warehouse Foreman: Eh Gould MD Specific [place], U 1.014 Normal 1.001-1.035 [facility] Comment on above: Performed By: #### 1 88175 #### [facility] [address] [place] [address] 88518 Warehouse Foreman: Eh Gould MD Squamous Epithelial Cells, U <1 Normal [facility] Comment on above: Performed By: #### 1 06815 #### [facility] [address] [place] [address] 47118 Warehouse Foreman: Eh Gould MD U MICRO Indicated Normal [facility] Comment on above: Performed By: #### 1 91819 #### [facility] [address] [place] [address] 68597 Warehouse Foreman: Eh Gould MD Urobilinogen Qual, U <2.0 mg/dl Normal <2.0 mg/dl [facility] Comment on above: Result Comment: EU/d l and mg/dl are equivalent units. Performed By: #### 1 95671 #### [facility] [address] [place] [address] 35865 Warehouse Foreman: Eh Gould MD WBC/HPF, U 2 #/HPF Normal 0-5 [facility] Comment on above: Performed By: #### 1 05171 #### [facility] [address] [place] [address] 99985 Warehouse Foreman: Eh Gould MD Preadmission Testing Progres s Noteon 11-14-2023 Preadmission Testing Progress Note Registration called P.A.T.,stating the pt. may not show and reschedule. Pt did not show for appointment. Called Dr. Shaffer's office. Spoke to Alexandra, she stated the CT foe watchman check is scheduled for the 20 of November and is needed for the clearance to be completed. Normal [facility] ABORHon 10-15-2023 ABORH CK Interp Positive Normal [facility] Comment on above: Performed By: #### C D:[id number], CD:[id number] #### [facility] [address] [place] [address] 96409 Warehouse Foreman: Eh Gould MD Anti-A recheck 4+ Normal [facility] Comment on above: Performed By: #### C D:[id number], CD:[id number] #### [facility] [address] [place] [address] 45823 Warehouse Foreman: Eh Gould MD Anti-B recheck 0 Normal [facility] Comment on above: Performed By: #### C D:[id number], CD:[id number] #### [facility] [address] [place] [address] Warehouse Foreman: Eh Gould MD Anti-D recheck 3+ Normal [facility] Comment on above: Performed By: #### C D:[id number], CD:[id number] #### [facility] [address] [place] [address] Warehouse Foreman: Eh Gould MD Pathologist Reviewon 024 Diff [...] out. Clinical correlation is recommended. Normal [facility] Comment on above: Order Comment: Added on by Discern Expert Rule. Result Comment: CAMILA ZEPEDA (Electronic Signature) Date Verified 10/15/23 Performed By: #### 9 080660, 484043, 0270078, 321953, 860652, 308977 ####[facility] Nlw[address]fki276[address] [place], [place] [address]8530 Medical Director: Eh Gould MD Preadmission Testing [...] left today, 10/12/23, for Dr Hernández's office ([place]) regarding status of clearance. I spoke with [...] voice mail all available numbers for office, cattle knocker and PA. Left messages on voice mail [...] and and notify surgery scheduling. Normal [facility] Utilization Review Noteon Utilization Review Note [...] REPLACEMENT CANCELED PER PREACCESS. CANCELLED. Normal [facility] ABORHon 10-12-2023 ABORH Interpretation Positive Normal [facility] Comment on above: Performed By: #### C D:[id number], CD:[id number] #### [facility] [address] [place], [place] [address] Warehouse Foreman: Eh Gould MD Patient History Check No Previous Hx Normal [facility] Comment on above: Result Comment: 09/24 10:30 [id number] ABO Recheck to be ordered on admit. Surgery Date: 10/16/23 Performed By: #### C D:[id number], CD:[id number] #### [facility] [address] [place] [address] Warehouse Foreman: Eh Gould MD VS 0.8% a cells 0 [facility] Comment on above: Performed By: #### C D:[id number], CD:[id number] #### [facility] [address] [place], [place] [address] Warehouse Foreman: Eh Gould MD VS 0.8% b cells 3+ [facility] Comment on above: Performed By: #### C D:[id number], CD:[id number] #### [facility] [address] [place] [address] Warehouse Foreman: Eh Gould MD VS Anti-A Unit 4+ [facility] Comment on above: Performed By: #### C D:[id number], CD:[id number] #### [facility] [address] [place] [address] Warehouse Foreman: Eh Gould MD VS Anti-B Unit 0 [facility] Comment on above: Performed By: #### C D:[id number], CD:[id number] #### [facility] [address] [place] [address] Warehouse Foreman: Eh Gould MD VS Anti-D Unit 4+ [facility] Comment on above: Performed By: #### C D:[id number], CD:[id number] #### [facility] [address] [place] [address] 85185 Warehouse Foreman: Eh Gould MD ABSCon 10-12-2023 ABSC Final Interp Negative [facility] Comment on above: Performed By: #### C D:[id number], CD:[id number] ####[facility] Smctomhp25767 [place] [address] Medical Director: Eh Gould MD Pt Hx check done? Yes [facility] Comment on above: Performed By: #### C D:[id number], CD:[id number] ####[facility] [address]ed[address]xos[address]591 [place] [address] Medical Director: Eh Gould MD VS SCI Gel 0 [facility] Comment on above: Performed By: #### C D:[id number], CD:[id number] ####[facility] F[address]ubakj54720 [place] [address] Medical Director: Eh Gould MD VS SCII Gel 0 [facility] Comment on above: Performed By: #### C D:[id number], CD:[id number] ####[facility] Iopbgpou03089 [place] [address] Medical Director: Eh Gould MD APTTon 10-12-2023 aPTT Coag (Bld) [Time] 29.5 s Normal 27.0-38.0 So [facility] Comment on above: Result Comment: APTT Interpretation: This test has not been validated to monitor heparin therapy. APTT test is used as an initial test for suspected bleeding disorder. Anti-Xa UFH test is used to monitor heparin therapy. Performed By: #### 9 324924, 556995, 9752274, 493590, 114715, 350220 ####[facility] Dzxtdcar44233 [place], [place] [id number]) [phone] Director: Eh Gould MD AUTO DIFFon 10-12-2023 Baso Count 0.02 x1000 Normal 0.00-0.20 [facility] Comment on above: Performed By: #### 9 870892, 857725, 5693857, 500730, 934736, 359652 ####[facility] [address] [place] [address] Medical Director: Eh Gould MD Basos % 0.8 % Normal [facility] Comment on above: Performed By: #### 9 326092, 997296, 5661921, 202270, 566297, 568376 ####[facility] [address] [place] [address] Medical Director: Eh Gould MD Eos Count 0.21 x1000 Normal 0.00-0.50 [facility] Comment on above: Performed By: #### 9 197618, 205884, 7525183, 829732, 147358, 473441 ####[facility] Gfdtrwon06329 [place] [address] Medical Director: Eh Gould MD Eosinophils/100 WBC (Bld) 7.5 % Normal [facility] Comment on above: Performed By: #### 9 658611, 172662, 7882726, 535420, 976705, 633243 ####[facility] Bcgfdwrv60842 [place] [address] Medical Director: Eh Gould MD Lymph Count 1.03 x1000 Low 1.20-4.80 [facility] Comment on above: Performed By: #### 9 038032, 730103, 4696245, 981579, 098405, 899679 ####[facility] Hxwcohsp20065 [place] [address] Medical Director: Eh Gould MD Lymphocytes/100 WBC (Bld) 36.5 % Normal [facility] Comment on above: Performed By: #### 9 817880, 543286, 9163143, 215947, 111925, 436303 ####[facility] Rsrfuawi28273 [place] [address] Medical Director: Eh Gould MD Jessamine Count 0.08 x1000 Low 0.10-1.00 [facility] Comment on above: Performed By: #### 9 911219, 758810, 4428987, 987707, 263545, 305547 ####[facility] Jlhsgzej68119 [place] [address] Medical Director: Eh Gould MD Monocytes/100 WBC (Bld) 2.8 % Normal [facility] Comment on above: Performed By: #### 9 388291, 783228, 7958479, 438523, 242021, 109780 ####[facility] Mucoldnw25087 [place] [address] Medical Director: Eh Gould MD Neutrophil Count (ANC) 1.48 x1000 Normal 1.40-8.80 So [facility] Comment on above: Performed By: #### 9 398516, 540978, 5136115, 048119, 757606, 644142 ####[facility] Qyxxidjo55784 [place] [address] Medical Director: Eh Gould MD Neutrophils/100 WBC (Bld) 52.5 % Normal [facility] Comment on above: Performed By: #### 9 862637, 264818, 2634006, 286514, 486665, 621799 ####[facility] [address]ocpjjko97487 [place] [address] Medical Director: Eh Gould MD Red Blood Cell Morphology See Notes Abnormal [facility] Comment on above: Result Comment: Macr ocytosis 2+ Rouleaux 1+ Performed By: #### 9 442698, 560702, 9068971, 946157, 867484, 677162 ####[facility] J[address]nowibw38680 [place] [address] Medical Director: Eh Gould MD Scan Differential Diff Scd Normal [facility] Comment on above: Result Comment: Slid e reviewed by technologist. Performed By: #### 9 121639, 177406, 7340058, 179143, 154818, 721833 ####[facility] Ehjfbsem74746 [place] [address] Medical Director: Eh Gould MD BASICMETAon 10-12-2023 Calcium [Mass/Vol] 10.1 mg/dL Normal 8.7-10.4 [facility] Comment on above: Performed By: #### 9 397990, 866213, 6403788, 029769, 230144, 756458 ####[facility] [address]qmqnrsy38[address] [place] [address] Medical Director: Eh Gould MD Chloride [Moles/Vol] 103 mmol/L Normal 98-107 [facility] Comment on above: Performed By: #### 9 426995, 530449, 6796507, 431213, 329589, 608906 ####[facility] Nvxtukcm76070 [place] [address] Medical Director: Eh Gould MD CO2 [Moles/Vol] 27.0 mmol/L Normal 20.0-31.0 [facility] Comment on above: Performed By: #### 9 106235, 158013, 0264576, 800234, 690419, 619613 ####[facility] Gdhenvgg[address]27 [place] [address] Medical Director: Eh Gould MD Creatinine [Mass/Vol] 1.2 mg/dL High 0.6-1.1 [facility] Comment on above: Performed By: #### 9 534817, 197608, 9930355, 785837, 646551, 034650 ####[facility] Rwimqbvv01385 [place] [address] Medical Director: Eh Gould MD GFR AA >60 Normal [facility] Comment on above: Result Comment: Afri can [place] GFR Calc Medical judgement is necessary to [...] for drug dosing. Performed By: #### 9 502368, 452819, 3594332, 925691, 599433, 071201 ####[facility] Iwsoiska70054 [place] [address] Medical Director: Eh Gould MD Glomerular Filtration Rate 59 mL/min/1.73m? Normal [facility] Comment on above: Result Comment: Non- [...] for drug dosing. Performed By: #### 9 163606, 709898, 6036568, 486760, 485990, 872044 ####[facility] Zfmiaapr49737 [place] [address] Medical Director: Eh Gould MD Glucose [Mass/Vol] 111 mg/dL High 74-106 [facility] Comment on above: Performed By: #### 9 606443, 070652, 8791105, 493623, 626198, 599886 ####[facility] Hkkfgtvo66562 [place] [address] Medical Director: Eh Gould MD Osmolality [Osmolality] 281 mosm/kg Normal 275-295 [facility] Comment on above: Performed By: #### 9 855230, 097532, 4093843, 462900, 884665, 942717 ####[facility] Witypswu04336 [place] [address] Medical Director: Eh Gould MD Potassium [Moles/Vol] 4.0 mmol/L Normal 3.5-5.1 [facility] Comment on above: Performed By: #### 9 907877, 595639, 9894376, 985939, 061219, 148227 ####[facility] [address]cwiqfjr55060 [place] [address] Medical Director: Eh Goudl MD Sodium [Moles/Vol] 140 mmol/L Normal 135-145 [facility] Comment on above: Performed By: #### 9 473088, 118928, 1112863, 117297, 243992, 586458 ####[facility] Ehhzrrly34146 [place] [address] Medical Director: Eh Gould MD Urea nitrogen [Mass/Vol] 16 mg/dL Normal 9-23 [facility] Comment on above: Result Comment: - Ve nipuncture should occur prior to N-Acetyl Cysteine (NAC) or Metamizole (Sulpyrine) administration due to the potential for falsely depressed results. - Blood samples from some patients with monoclonal gammopathies may produce falsely elevated results Performed By: #### 9 072701, 626819, 9738244, 281467, 349259, 668203 ####[facility] Koaxaoni51978 [place], [place] [address]) [phone] Director: Eh Gould MD Urea nitrogen/Creatinine [Mass ratio] 13.3 mg/mg Normal [facility] Comment on above: Performed By: #### 9 920169, 856510, 5175318, 433933, 574936, 972633 ####[facility] Lzuosydt61831 [place] [address] Medical Director: Eh Gould MD HEMOon 10-12-2023 DIFF? No Normal [facility] Comment on above: Performed By: #### 9 869834, 082703, 0931774, 866096, 510894, 065617 ####[facility] Homjbymd24171 [place], [place] [address]) [phone] Director: Eh Gould MD DxH Actions See Notes Abnormal [facility] Comment on above: Result Comment: Scan for RBC Morphology Scan Slide. Perform manual diff if needed. SNV Performed By: #### 9 458639, 707412, 1879928, 196999, 380149, 491817 ####[facility] Fquxxvfa23688 [place], [place] [address]) [phone] Director: Eh Gould MD Erythrocyte distribution width (RBC) [Ratio] 13.5 % Normal 11.5-14.5 [facility] Comment on above: Performed By: #### 9 343228, 909667, 8659930, 112476, 351191, 776360 ####[facility] Mkvaakfe26782 [place], [place] [address]) [phone] Director: Eh Gould MD HEM PATH REVIEW See Diff Review Interp Normal [facility] Comment on above: Performed By: #### 9 285156, 415554, 7386235, 105039, 614452, 800915 ####[facility] Tcbnniwe53224 [place], [place] [address]) [phone] Director: Eh Gould MD Hematocrit (Bld) [Volume fraction] 27.4 % Low 41.0-52.0 [facility] Comment on above: Performed By: #### 9 062432, 253488, 5352111, 617484, 338469, 893436 ####[facility] Ildfbuve60296 [place], [place] [address]) [phone] Director: Eh Gould MD Hemoglobin (Bld) [Mass/Vol] 9.4 g/dL Low 13.5-17.5 [facility] Comment on above: Performed By: #### 9 227978, 294682, 7974625, 080246, 051630, 470623 ####[facility] Aqksdbay67608 [place], [place] [address]) [phone] Director: Eh Gould MD Instr WBC 2.8 Normal [facility] Comment on above: Performed By: #### 9 848379, 141604, 6077894, 795617, 411499, 007144 ####[facility] Zjhjvrem72557 [place] [address] Medical Director: Eh Gould MD MCH (RBC) [Entitic mass] 37.4 pg High 27.0-34.0 [facility] Comment on above: Performed By: #### 9 452801, 018906, 5702530, 652774, 497733, 478080 ####[facility] Zknreohb22705 [place], [place] [address]) [phone] Director: Eh Gould MD MCHC (RBC) [Mass/Vol] 34.2 g/dL Normal 32.0-37.0 [facility] Comment on above: Performed By: #### 9 488524, 160016, 9353208, 300197, 963173, 216473 ####[facility] Vpmbbero76766 [place] [address] Medical Director: Eh Gould MD MCV (RBC) [Entitic vol] 109.4 fL High 80.0-100.0 [facility] Comment on above: Performed By: #### 9 373475, 357303, 5597500, 185341, 819114, 869000 ####[facility] Nqqurzbm72164 [place] [address] Medical Director: Eh Gould MD Nucleated RBC 0 /100WBC Normal [facility] Comment on above: Performed By: #### 9 979584, 703864, 0749833, 076085, 060118, 008878 ####[facility] Ydkikaws36251 [place] [address] Medical Director: Eh Gould MD Platelet 165 x10 Normal 150-450 [facility] Comment on above: Performed By: #### 9 203333, 631797, 5834716, 325997, 662399, 154425 ####[facility] Ouxaccmy58828 [place] [address] Medical Director: Eh Gould MD Platelet mean volume (Bld) [Entitic vol] 6.3 fL Low 7.4-10.4 [facility] Comment on above: Performed By: #### 9 103527, 577954, 7896998, 728303, 761125, 443695 ####[facility] Jjnfjkyc68281 [place] [address] Medical Director: Eh Gould MD RBC 2.51 x10 Low 4.70-6.10 [facility] Comment on above: Result Comment: Note : RBC morphology is normal unless otherwise stated. Evaluation performed only if differential is requested. Performed By: #### 9 716520, 772520, 3150741, 159305, 243063, 661778 ####[facility] Guloailj59761 [place] [address] Medical Director: Eh Gould MD WBC 2.8 x10 Low 4.5-11.0 [facility] Comment on above: Performed By: #### 9 103038, 263750, 7557087, 674694, 541210, 788639 ####[facility] Ljtfseiq47151 [place] [address] Medical Director: Eh Gould MD PT INRon 10-12-2023 INR Coag (PPP) [Relative time] 1.2 {INR} Normal [facility] Comment on above: Result Comment: INR Reference Range: Normal reference range for INR on patients not on anticoagulant therapy: 0.9-1.1 General therapeutic range for patients on anticoagulant therapy: 2.0-3.5 Performed By: #### 9 390467, 655559, 0707860, 373602, 664088, 912444 ####[facility] Cbwvekpl89598 [place] [address] Medical Director: Eh Gould MD Protime Patient 13.4 seconds High 9.8-12.8 [facility] Comment on above: Performed By: #### 9 861011, 543277, 9187688, 565037, 184614, 227784 ####[facility] Dvezqtvk81391 [place] [address] Medical Director: Eh Gould MD Preadmission Testing [...] Simba TOLEDO, Dante Lanier on Normal [facility] UAon 10-12-2023 Appearance, U Clear Normal [facility] Comment on above: Performed By: #### 1 88668 #### [facility] [address] [place] [address] Warehouse Foreman: Eh Gould MD Bilirubin, U Negative Normal Negative [facility] Comment on above: Performed By: #### 1 10114 #### [facility] [address] [place] [address] Warehouse Foreman: Eh Gould MD Blood, U Moderate Abnormal Negative [facility] Comment on above: Performed By: #### 1 88865 #### [facility] [address] [place] [address] Warehouse Foreman: Eh Gould MD Color, U Yellow Normal [facility] Comment on above: Performed By: #### 1 86769 #### [facility] [address] [place] [address] Warehouse Foreman: Eh Gould MD Glucose Qual, U Negative Normal Negative [facility] Comment on above: Performed By: #### 1 73981 #### [facility] [address] [place] [address] Warehouse Foreman: Eh Gould MD Hyaline Cast <1 Normal [facility] Comment on above: Performed By: #### 1 90804 #### [facility] [address] [place] [address] Warehouse Foreman: Eh Gould MD Ketones, U Negative Normal Negative [facility] Comment on above: Performed By: #### 1 92047 #### [facility] [address] [place] [address] Warehouse Foreman: Eh Gould MD Leukocyte Esterase, U Negative Normal Negative [facility] Comment on above: Performed By: #### 1 28766 #### [facility] [address] [place] [address] Warehouse Foreman: Eh Gould MD Mucous, U Occasional Normal [facility] Comment on above: Performed By: #### 1 34782 #### [facility] [address] [place] [address] Warehouse Foreman: Eh Gould MD Nitrite, U Negative Normal Negative [facility] Comment on above: Performed By: #### 1 55150 #### [facility] [address] [place], [place] [address] Warehouse Foreman: Eh Gould MD pH, U 5.0 Normal 4.5-8.0 [facility] Comment on above: Performed By: #### 1 83376 #### [facility] [address] [place], [place] [address] Warehouse Foreman: Eh Gould MD Protein, U Negative Normal Negative [facility] Comment on above: Performed By: #### 1 98405 #### [facility] [address] [place], [place] [address] Warehouse Foreman: Eh Gould MD RBC/HPF, U 5 #/HPF High 0-3 [facility] Comment on above: Performed By: #### 1 89486 #### [facility] [address] [place] [address] Warehouse Foreman: Eh Gould MD Specific [place], U 1.016 Normal 1.001-1.035 [facility] Comment on above: Performed By: #### 1 47012 #### [facility] [address] [place], [place] [address] Warehouse Foreman: Eh Gould MD U MICRO Indicated Normal [facility] Comment on above: Performed By: #### 1 25492 #### [facility] [address] [place] [address] Warehouse Foreman: Eh Gould MD Urobilinogen Qual, U <2.0 mg/dl Normal <2.0 mg/dl [facility] Comment on above: Result Comment: EU/d l and mg/dl are equivalent units. Performed By: #### 1 58673 #### [facility] [address] [place] [address] Warehouse Foreman: Eh Gould MD WBC/HPF, U 7 #/HPF High 0-5 [facility] Comment on above: Performed By: #### 1 26402 #### [facility] [address] [place] [address] Warehouse Foreman: Eh Gould MD Activated clotting timeon ACT Coag (Bld) 271 s High 89-169 [facility] Comment on above: Result Comment: Targ et ACT range will vary based on the patient population, clinical status, and surgical intervention occurring. Performed By: #### 3 184-9 #### JAVAD Stephenson ([id number]) [facility] ([facility]) [address] [place] [place] [address] CT WATCHMAN FULL CONTRASTon 08-28-2023 CT WATCHMAN FULL CONTRAST Interpreted By: Purnima Lira, STUDY: CT WATCHMAN FULL CONTRAST; 08/28/2023 12:00 pm INDICATION: Signs/Symptoms:pre Watchman procedure SAME DAY CT. COMPARISON: None. ACCESSION NUMBER(S): [id number] ORDERING CLINICIAN: RYAN COBB TECHNIQUE: Using multi [...] coronary arteries. MACRO: None Signed by: Purnima Torresvijay 09/06/2023 9:28 AM Dictation workstation: [id number] Normal [facility] ECG 12-LEADon 08-28-2023 ECG 12-LEAD Ventricular Rate 63 Atrial Rate 63 P-R Interval 196 QRS Duration 86 Q-T Interval 402 QTC Calculation(Bazett) 411 P [place] 67 R [place]on -1 T [place] 20 QRS Count 10 Q Onset 223 P Onset 125 P Offset 180 T Offset 424 QTC Fredericia 408 Diagnosis Normal sinus rhythm Inferior infarct Possible Anterior infarct Abnormal ECG Confirmed by Benny Obrien ([id number]) on 08/30/2023 3:59:32 PM Normal [facility] STRUCTURAL HEART PROCEDUREon 08-28-2023 STRUCTURAL HEART PROCEDURE [facility], Junior Accounting Clerk, [address] [place] [address] Cardiovascular Catheterization Report Patient Name: NEIL Matthews DAVIAN Performing Physician: [id number] Cobb MD Study Date: 08/28/2023 Verifying Physician: [id number] Cobb MD MRN/PID: [id number] Insole Lip Turner/Co-scrub: Ordering Physician: [id number] COBB Date of 1945 Fellow: [id number] Adam Benedict /Age: years Gender: M Fellow: [...] guidance, transseptal puncture was with a versacross ([employer]), accessing the left atrium. The transseptal tract was then dilated with a Watchman Double Curve access sheath and the ICE probe was advanced through the dilated tract into the left atrium. Next, a 6 Bulgarian angled pigtail was advanced through the delivery [...] CPT Codes: Perc left atrial appendage closure (LAAC)-73803 [id number] Ryan Cobb MD Performing Physician Final [facility] TRANSTHORACIC ECHO (TTE) [facility]23 TRANSTHORACIC ECHO (TTE) [facility], [address] [place] [address] and TRANSTHORACIC ECHOCARDIOGRAM REPORT Patient Name: NEIL Aldana Physician: [id number] Kandis Chau MD Study Date: 08/28/2023 Ordering Provider: [id number] LUCAS PEARCE MRN/PID: [id number] Fellow: Nurse: Date of /Age: 1 1945 / 77 years Night Auditor: Moncho Infante RDCS Gender: M Additional Staff: Height: 175.26 cm Admit Date: 08/28/2023 Weight: 79.38 kg Admission Status: Inpatient - Routine BSA: 1.95 m2 Department Location: [facility] Non Invasive Study Type: TRANSTHORACIC ECHO (TTE) LIMITED Diagnosis/ICD: Unspecified atrial fibrillation-I48.91 Indication: Pre-LAAO CPT Code: Echo Limited-89411 Patient History: Pertinent History: HTN; HLD: paroxysmal [...] VALVE/RVSP: Normal Ranges: IVC Diam: 1.50 cm [id number] Kandis Chau MD Electronically signed on 08/28/2023 at 3:17:19 PM Final Normal [facility] TRANSTHORACIC ECHO (TTE) [facility], [address] [place] [address] and TRANSTHORACIC ECHOCARDIOGRAM REPORT Patient Name: NEIL WILCOX Reading Physician: [id number] Jacobo French MD Study Date: 08/28/2023 Ordering Provider: [id number] LUCAS PEARCE MRN/PID: [id number] Fellow: Nurse: Date of 1945 Night Auditor: Moncho Infante RDCS /Age: years Gender: M Additional Staff: Height: 175.26 cm Admit Date: 08/28/2023 Weight: 79.38 kg Admission Status: Inpatient - Routine BSA: 1.95 m2 [facility] Cath Location: Lab Blood Pressure: 137 /78 mmHg Study Type: TRANSTHORACIC ECHO (TTE) LIMITED Diagnosis/ICD: Unspecified atrial fibrillation-I48.91 Indication: POST LAAO CPT Code: Echo Limited-28759 Patient History: Pertinent History: HTN; HLD; paroxysmal [...] 72.4 g/m2 LV % FS 32.6 % [id number] Jacobo French MD Electronically signed on 08/28/2023 at 5:50:59 PM Final [facility] US Heart Transthoracicon [facility], [address] [place] [address] and TRANSTHORACIC ECHOCARDIOGRAM REPORT Patient Name: NEIL WILCOX Reading Physician: [id number] Kandis Chau MD Study Date: 08/28/2023 Ordering Provider: [id number] LUCAS PEARCE MRN/PID: [id number] Fellow: Nurse: Date of /Age: 1 1945 / 77 years Night Auditor: Moncho Infante [place] Gender: M Additional Staff: Height: 175.26 cm Admit Date: 08/28/2023 Weight: 79.38 kg Admission Status: Inpatient - Routine BSA: 1.95 m2 Department Location: [facility] Non Invasive Study Type: TRANSTHORACIC ECHO (TTE) LIMITED Diagnosis/ICD: Unspecified atrial fibrillation-I48.91 Indication: Pre-LAAO CPT Code: Echo Limited-53574 Patient History: Pertinent History: HTN; HLD: paroxysmal [...] VALVE/RVSP: Normal Ranges: IVC Diam: 1.50 cm [id number] Kandis Chau MD Electronically signed on 08/28/2023 at 3:17:19 PM Final SYNGO Kandis Chau MD - 08/28/2023 [facility], [address] [place] [address] and TRANSTHORACIC ECHOCARDIOGRAM REPORT Patient Name: NEIL WILCOX Reading Physician: [id number] Kandis Chau MD Study Date: 08/28/2023 Ordering Provider: [id number] LUCAS PEARCE MRN/PID: [id number] Fellow: Nurse: Date of /Age: 1 1945 / 77 years Night Auditor: Moncho Infante RDCS Gender: M Additional Staff: Height: 175.26 cm Admit Date: 08/28/2023 Weight: 79.38 kg Admission Status: Inpatient - Routine BSA: 1.95 m2 Department Location: [facility] Non Invasive Study Type: TRANSTHORACIC ECHO (TTE) LIMITED Diagnosis/ICD: Unspecified atrial fibrillation-I48.91 Indication: Pre-LAAO CPT Code: Echo Limited-79843 Patient History: Pertinent History: HTN; HLD: paroxysmal [...] VALVE/RVSP: Normal Ranges: IVC Diam: 1.50 cm [id number] Kandis Chau MD Electronically signed on 08/28/2023 at 3:17:19 PM Final [facility] Work Phone: US Heart TransthoracicOrdere d By: Kandis Chau on 08-28-2023 [facility] Work Phone: Creatinineon 08-22-2023 Creatinine [Mass/Vol] 1.23 mg/dL Normal 0.50-1.30 [facility] Comment on above: Performed By: #### 2 160-0 #### LINDA GALLAGHER ([id number]) [facility] ([facility]) [address] [place] [address] Creatinine [Mass/Vol]on 07-26 GFR/1.73 sq M.predicted MDRD (S/P/Bld) [Vol rate/Area] 61 mL/min/1.73m*2 Normal >60 [facility] Comment on above: Result Comment: Calc ulations of estimated GFR are performed using the 2020 CKD-EPI Study Refit equation without the race variable for the IDMS-Traceable creatinine methods. https://jasn.asnjournals.org/content/early/ASN.2020 611199 Performed By: #### 2 160-0 #### LINDA GALLAGHER ([id number]) [facility] ([facility]) [address] [place] [address] CBC W Auto Differential pane l (Bld)on 07-31-2023 Basophils (Bld) [#/Vol] 10*3/uL Normal <0.11 [facility] Comment on above: Order Comment: Speci men Type: BLOOD SPECIMEN Ordering Facility: External Submitter Address: , , Performed By: #### 5 7021-8 #### [facility] CLIA [id number] [address] [place] [address] [place] Basophils/100 WBC (Bld) 0.3 % Normal [facility] Comment on above: Order Comment: Speci men Type: BLOOD SPECIMEN Ordering Facility: External Submitter Address: , , Performed By: #### 5 7021-8 #### [facility] CLIA [id number] [address] [place] [address] [place] CBC W Differential panel, method unspecified (Bld) Done Normal [facility] Comment on above: Order Comment: Speci men Type: BLOOD SPECIMEN Ordering Facility: External Submitter Address: , , Performed By: #### 5 7021-8 #### [facility] CLIA [id number] [address] [place] [address] [place] Differential cell count method Nom (Bld) Auto Normal [facility] Comment on above: Order Comment: Speci men Type: BLOOD SPECIMEN Ordering Facility: External Submitter Address: , , Performed By: #### 5 7021-8 #### [facility] CLIA [id number] [address] [place] [address] [place] Eosinophils (Bld) [#/Vol] 0.22 10*3/uL Normal <0.46 [facility] Comment on above: Order Comment: Speci men Type: BLOOD SPECIMEN Ordering Facility: External Submitter Address: , , Performed By: #### 5 7021-8 #### [facility] CLIA [id number] [address] [place] [address] [place] Eosinophils/100 WBC (Bld) 6.5 % Normal [facility] Comment on above: Order Comment: Speci men Type: BLOOD SPECIMEN Ordering Facility: External Submitter Address: , , Performed By: #### 5 7021-8 #### [facility] CLIA [id number] [address] [place] [address] [place] Erythrocyte distribution width (RBC) [Ratio] 13.0 % Normal 11.5-15.0 [facility] Comment on above: Order Comment: Speci men Type: BLOOD SPECIMEN Ordering Facility: External Submitter Address: , , Performed By: #### 5 7021-8 #### [facility] CLIA [id number] [address] [place] [address] [place] Hematocrit (Bld) [Volume fraction] 31.3 % Low 39.0-51.0 [facility] Comment on above: Order Comment: Speci men Type: BLOOD SPECIMEN Ordering Facility: External Submitter Address: , , Performed By: #### 5 7021-8 #### [facility] CLIA [id number] [address] [place] [address] [place] Hemoglobin (Bld) [Mass/Vol] 10.4 g/dL Low 13.0-17.0 [facility] Comment on above: Order Comment: Speci men Type: BLOOD SPECIMEN Ordering Facility: External Submitter Address: , , Performed By: #### 5 7021-8 #### [facility] CLIA [id number] [address] [place] [address] [place] Immature granulocytes (Bld) [#/Vol] 10*3/uL Normal <0.10 [facility] Comment on above: Order Comment: Speci men Type: BLOOD SPECIMEN Ordering Facility: External Submitter Address: , , Performed By: #### 5 7021-8 #### [facility] CLIA [id number] [address] [place] [address] [place] Immature granulocytes/100 WBC (Bld) 0.0 % Normal [facility] Comment on above: Order Comment: Speci men Type: BLOOD SPECIMEN Ordering Facility: External Submitter Address: , , Performed By: #### 5 7021-8 #### [facility] - [facility] CLIA [id number] [address] [place] [address] [place] Lymphocytes (Bld) [#/Vol] 1.06 10*3/uL Normal 1.00-4.00 [facility] Comment on above: Order Comment: Speci men Type: BLOOD SPECIMEN Ordering Facility: External Submitter Address: , , Performed By: #### 5 7021-8 #### [facility] CLIA [id number] [address] [place] [address] [place] Lymphocytes/100 WBC (Bld) 31.2 % Normal [facility] Comment on above: Order Comment: Speci men Type: BLOOD SPECIMEN Ordering Facility: External Submitter Address: , , Performed By: #### 5 7021-8 #### [facility] CLIA [id number] [address] [place] [address] [place] MCH (RBC) [Entitic mass] 37.3 pg High 26.0-34.0 [facility] Comment on above: Order Comment: Speci men Type: BLOOD SPECIMEN Ordering Facility: External Submitter Address: , , Performed By: #### 5 7021-8 #### [facility] CLIA [id number] [address] [place] [address] [place] MCHC (RBC) [Mass/Vol] 33.2 g/dL Normal 30.5-36.0 [facility] Comment on above: Order Comment: Speci men Type: BLOOD SPECIMEN Ordering Facility: External Submitter Address: , , Performed By: #### 5 7021-8 #### [facility] CLIA [id number] [address] [place] [address] [place] MCV (RBC) [Entitic vol] 112.2 fL High 80.0-100.0 [facility] Comment on above: Order Comment: Speci men Type: BLOOD SPECIMEN Ordering Facility: External Submitter Address: , , Performed By: #### 5 7021-8 #### [facility] CLIA [id number] [address] [place] [address] [place] Monocytes (Bld) [#/Vol] 0.13 10*3/uL Normal <0.87 [facility] Comment on above: Order Comment: Speci men Type: BLOOD SPECIMEN Ordering Facility: External Submitter Address: , , Performed By: #### 5 7021-8 #### [facility] CLIA [id number] [address] [place] [address] [place] Monocytes/100 WBC (Bld) 3.8 % Normal C [facility] Comment on above: Order Comment: Speci men Type: BLOOD SPECIMEN Ordering Facility: External Submitter Address: , , Performed By: #### 5 7021-8 #### [facility] CLIA [id number] [address] [place] [address] [place] Neutrophils (Bld) [#/Vol] 1.98 10*3/uL Normal 1.45-7.50 [facility] Comment on above: Order Comment: Speci men Type: BLOOD SPECIMEN Ordering Facility: External Submitter Address: , , Performed By: #### 5 7021-8 #### [facility] CLIA [id number] [address] [place] [address] [place] Neutrophils/100 WBC (Bld) 58.2 % Normal [facility] Comment on above: Order Comment: Speci men Type: BLOOD SPECIMEN Ordering Facility: External Submitter Address: , , Performed By: #### 5 7021-8 #### [facility] CLIA [id number] [address] [place] [address] [place] Nucleated RBC (Bld) [#/Vol] 10*3/uL Normal <0.01 [facility] Comment on above: Order Comment: Speci men Type: BLOOD SPECIMEN Ordering Facility: External Submitter Address: , , Performed By: #### 5 7021-8 #### [facility] CLIA [id number] [address] [place] [address] [place] Nucleated RBC/100 WBC (Bld) [Ratio] 0.0 /100 WBC Normal [facility] Comment on above: Order Comment: Speci men Type: BLOOD SPECIMEN Ordering Facility: External Submitter Address: , , Performed By: #### 5 7021-8 #### [facility] CLIA [id number] [address] [place] [address] [place] Platelet mean volume (Bld) [Entitic vol] 9.1 fL Normal 9.0-12.7 [facility] Comment on above: Order Comment: Speci men Type: BLOOD SPECIMEN Ordering Facility: External Submitter Address: , , Performed By: #### 5 7021-8 #### [facility] CLIA [id number] [address] [place] [address] [place] Platelets (Bld) [#/Vol] 166 10*3/uL Normal 150-400 [facility] Comment on above: Order Comment: Speci men Type: BLOOD SPECIMEN Ordering Facility: External Submitter Address: , , Performed By: #### 5 7021-8 #### [facility] CLIA [id number] [address] [place] [address] [place] Platelets Estimate (Bld) [#/Vol] Adequate Normal [facility] Comment on above: Order Comment: Speci men Type: BLOOD SPECIMEN Ordering Facility: External Submitter Address: , , Performed By: #### 5 7021-8 #### [facility] CLIA [id number] [address] [place] [address] [place] RBC (Bld) [#/Vol] 2.79 10*6/uL Low 4.20-6.00 [facility] Comment on above: Order Comment: Speci men Type: BLOOD SPECIMEN Ordering Facility: External Submitter Address: , , Performed By: #### 5 7021-8 #### [facility] CLIA [id number] [address] [place] [address] [place] RED CELL MORPH Reviewed: unremarkable Normal [facility] Comment on above: Order Comment: Speci men Type: BLOOD SPECIMEN Ordering Facility: External Submitter Address: , , Performed By: #### 5 7021-8 #### [facility] CLIA [id number] [address] [place] [address] [place] WBC (Bld) [#/Vol] 3.40 10*3/uL Low 3.70-11.00 [facility] Comment on above: Order Comment: Speci men Type: BLOOD SPECIMEN Ordering Facility: External Submitter Address: , , Performed By: #### 5 7021-8 #### [facility] CLIA [id number] [address] [id number] [address] [place] Comprehensive metabolic 2000 panelon 07-31-2023 Albumin [Mass/Vol] 3.8 g/dL Low 3.9-4.9 [facility] Comment on above: Order Comment: Speci men Type: BLOOD SPECIMEN Ordering Facility: External Submitter Address: , , Performed By: #### 2 4323-8, 3023-7, 3015-3 #### [facility] CLIA [id number] [address] [place] [address] [place] ALP [Catalytic activity/Vol] 132 U/L High 38-113 [facility] Comment on above: Order Comment: Speci men Type: BLOOD SPECIMEN Ordering Facility: External Submitter Address: , , Performed By: #### 2 4323-8, 3024-03, 3015-11 #### [facility] CLIA [id number] [address] [place] [address] [place] ALT [Catalytic activity/Vol] 9 U/L Low 10-54 [facility] Comment on above: Order Comment: Speci men Type: BLOOD SPECIMEN Ordering Facility: External Submitter Address: , , Performed By: #### 2 4323-8, 3024-03, 3015-11 #### [facility] CLIA [id number] [address] [place] [address] [place] Anion gap [Moles/Vol] 15 mmol/L Normal 9-18 [facility] Comment on above: Order Comment: Speci men Type: BLOOD SPECIMEN Ordering Facility: External Submitter Address: , , Performed By: #### 2 4323-8, 7, 3 #### [facility] CLIA [id number] [address] [place] [address] [place] AST [Catalytic activity/Vol] 16 U/L Normal 14-40 [facility] Comment on above: Order Comment: Speci men Type: BLOOD SPECIMEN Ordering Facility: External Submitter Address: , , Performed By: #### 2 4323-8, 3024-03, 3 #### [facility] CLIA [id number] [address] [address] [place] Bilirubin [Mass/Vol] 0.4 mg/dL Normal 0.2-1.3 [facility] Comment on above: Order Comment: Speci men Type: BLOOD SPECIMEN Ordering Facility: External Submitter Address: , , Performed By: #### 2 4323-8, 3024-03, 3 #### [facility] CLIA [id number] [address] [address] [place] Calcium [Mass/Vol] 9.6 mg/dL Normal 8.5-10.2 [facility] Comment on above: Order Comment: Speci men Type: BLOOD SPECIMEN Ordering Facility: External Submitter Address: , , Performed By: #### 2 4323-8, 3024-03, 3015-11 #### [facility] CLIA [id number] [address] [place] [address] [place] Chloride [Moles/Vol] 99 mmol/L Normal 97-105 [facility] Comment on above: Order Comment: Speci men Type: BLOOD SPECIMEN Ordering Facility: External Submitter Address: , , Performed By: #### 2 4323-8, 3024-03, 3 #### [facility] CLIA [id number] [address] [place] [address] [place] CO2 [Moles/Vol] 23 mmol/L Normal 22-30 [facility] Comment on above: Order Comment: Speci men Type: BLOOD SPECIMEN Ordering Facility: External Submitter Address: , , Performed By: #### 2 4323-8, 3024-03, 3 #### [facility] CLIA [id number] [address] [address] [place] Creatinine [Mass/Vol] 1.23 mg/dL High 0.73-1.22 [facility] Comment on above: Order Comment: Speci men Type: BLOOD SPECIMEN Ordering Facility: External Submitter Address: , , Performed By: #### 2 4323-8, 3024-7, 3015-3 #### [facility] CLIA [id number] [address] [place] [address] [place] Creatinine and Glomerular filtration rate.predicted panel (S/P/Bld) 61 mL/min/1.73m??? Normal >=60 [facility] Comment on above: Order Comment: Specdashawn vang Type: BLOOD SPECIMEN Ordering Facility: External [...] actual GFR. Performed By: #### 2 4323-8, 7, 3 #### [facility] CLIA [id number] [facility] [place] [address] [place] Glucose [Mass/Vol] 139 mg/dL High 74-99 [facility] Comment on above: Order Comment: Gee vang Type: BLOOD SPECIMEN Ordering Facility: External Submitter Address: , , Result Comment: The [place] Diabetes Association (ADA) provides guidance for cutoff [...] Standards of Medical Care in Diabetes 2016, [place] [employer]. Diabetes Care. 2016.39(Suppl 1). Performed By: #### 2 43238, 3024-03, 3015-11 #### [facility] CLIA [id number] [address] [place] [address] [place] Potassium [Moles/Vol] 4.0 mmol/L Normal 3.7-5.1 [facility] Comment on above: Order Comment: Speci men Type: BLOOD SPECIMEN Ordering Facility: External Submitter Address: , , Performed By: #### 2 4323-8, 3024-03, 3015-11 #### [facility] CLIA [id number] [address] [place] [address] [place] Protein [Mass/Vol] 7.7 g/dL Normal 6.3-8.0 [facility] Comment on above: Order Comment: Speci men Type: BLOOD SPECIMEN Ordering Facility: External Submitter Address: , , Performed By: #### 2 4323-8, 3024-03, 3015-11 #### [facility] CLIA [id number] [address] [place] [address] [place] Sodium [Moles/Vol] 137 mmol/L Normal 136-144 [facility] Comment on above: Order Comment: Speci men Type: BLOOD SPECIMEN Ordering Facility: External Submitter Address: , , Performed By: #### 2 4323-8, 3024-03, 3015-11 #### [facility] CLIA [id number] [address] [place], [place] [address] [place] Urea nitrogen [Mass/Vol] 19 mg/dL Normal 9-24 [facility] Comment on above: Order Comment: Speci men Type: BLOOD SPECIMEN Ordering Facility: External Submitter Address: , , Performed By: #### 2 4323-8, 3024-03, 3015-11 #### [facility] CLIA [id number] [address] [place] [address] [place] T4 Free SerPl-mCncon 023 Free T4 [Mass/Vol] 1.1 ng/dL Normal 0.9-1.7 [facility] Comment on above: Order Comment: Speci men Type: BLOOD SPECIMEN Ordering Facility: External Submitter Address: , , Performed By: #### 2 4323-8, 3024-7, 3016-3 #### [facility] CLIA [id number] [address] [place] [address] OF [place] TSH SerPl-aCncon 07-31-2023 TSH Qn 4.190 m[IU]/L Normal 0.270-4.200 [facility] Comment on above: Order Comment: Speci men Type: BLOOD SPECIMEN Ordering Facility: External Submitter Address: , , Performed By: #### 2 4323-8, 3024-7, 3016-3 #### [facility] CLIA [id number] [address] [place] [address] OF [facility] Ambulatory Visit Summaryon 1 Ambulatory Visit Summary [...] spironolactone (spironolactone 25 mg Tab) thyroid desiccated ([place] Thyroid) Procedures Performed Urethral dilatation (11/03/2022), TURP [...] 4 months Where: [facility] [address] , [place] [address]- Medications What How Much When Instructions Changed tolterodine (tolterodine 2 mg Cap-ER) 1 Capsules By Mouth Every day Pickup at [facility]/pharmacy #[id number] Unchanged APAP/ butalbital/ caffeine (APAP/ butalbital/ caffeine [...] if questions or concerns Unchanged thyroid desiccated ([place] Thyroid) By Mouth Every day Contact prescribing physician if questions or concerns Pharmacy Information [facility]/pharmacy #[id number]: [address], [place] [id number] [phone] Allergies No Known Allergies Problems Ongoing - Any problem that you are currently receiving treatment for. BPH without urinary obstruction Hesitancy Hypertension Incomplete bladder emptying Intertrigo mild [place] (myocardial infarction) Nocturia Protein in urine Proteinuria [...] This condi (more content not included)... Normal [facility] Patient Educationon 07-09-20 Patient Education Urology Benign [...] Follow these instructions at home: ? Take rfic-gbz-mldhrvn and prescription medicines only as told by [...] the medicine (more content not included)... Normal [facility] Urology Office/Clinic Noteon 07-09-2023 Urology Office/Clinic Note [...] Contact Information MARTY BETANCOURT, Trung Frost, URL In 4 months [facility] [address], [place] [address]- Additional Instructions: Patient Education Benign Prostatic Hyperplasia I, Valentine Fuentes , personally scribed for Dr. Ferguson on 07/09/2023 11:38:56. . Documentation recorded by the scribe, Valentine Fuentes, accurately reflects the services(s) I performed and decisions made by me. Problem List/Past Medical History Ongoing BPH without urinary obstruction Hesitancy Hypertension Incomplete bladder emptying Intertrigo mild [place] (myocardial infarction) Nocturia Protein in urine Proteinuria Smoker Urethral meatal stenosis Urge incontinence Urinary incontinence without sensory awareness Urinary retention Historical No qualifying data Procedure/Surgical History Urethral dilatation (11/03/2022), TURP - Transurethral resection of prostate (08/31/2022), Cystoscopy (01/24/2022), Colonoscopy, Shoulder replacement. Medications APAP/butalbital/caffei ne 325 mg-50 mg-40 mg Tab [place] Thyroid, Oral, Daily atorvastatin, Oral, Daily Butapap cat 40mg PRN [facility] B-12 1,000 MCG TABLET, 0 doxazosin 4 mg Tab Eliquis 5 mg oral tablet FLUoxet (more content not included)... Normal [facility] Comment on above: Result Comment: Elec tronically Signed By: Trung FERGUSON MD\.br\Date and Time Signed: 07/09/23 11:43 EDT\.br\Electronically Co-Signed By: Valentine Fuentes.br\Date and Time Co-Signed: 07/09/23 11:39 EDT Office [...] Orders Anemia Complete Blood Count; Status:Active; Requested for:[id number]; Atrial fibrillation, currently in sinus rhythm, Frequent falls Cardiology - Valve and Structural Heart Program Referral Evaluation and Treatment Evaluate AND Treat Status: Hold For - Scheduling Requested for: [id number] SocHx: Former smoker Tobacco Use Screening; Status:Complete; Done: [id number] Patient Instructions Please bring all medicines, vitamins, [...] education given referral to Dr. Cobb for Innovegamen. patient to call back after review of [...] fibrillation, hypercoagulability related to atrial fibrillation, high [id number] score, most recently seen February 2023 and [...] due to atrial fibrillation, on anticoagulation. 10. [id number] at least 5. Has bled score 2 [...] cuff rep (more content not included)... Normal [employer] Tobacco Screening.on 023 Fall risk assessment b) One or more fall s in the last year -[facility] [employer] 250 DO Work Phone: Tobacco use status [facility] b) No M P-[facility] [employer] [place] 250 DO Work Phone: Tobacco Screening. Yes -[facility] [employer] 250 DO Work Phone: Patient Educationon 04-03-20 23 Patient Education Obstetrics and Gynecology Kegel Exercises [...] provider. Document Revised: 01/19/2022 Document Reviewed: 01/19/2022 [employer] Patient Education ? 2022 [email or web address] [facility] Urology Office/Clinic Noteon 04-03-2023 Urology Office/Clinic Note [...] Contact Information RITESH ALTAMIRANO, CHARLOTTE Meneses, URL [address] [place] [address] Additional Instructions: keep appt w/ Patient Education [employer] Ex[employer] Documentation recorded by the scribgideon Fuentes accurately reflects the services(s) I performed and decisions made by me. Authenticated by Charlotte Baker PA-C on 04/03/2023 09:50:52. I, Valentine Fuentes, personally scribed for Charlotte Baker PA-C on 04/03/2023 09:31:40. . Problem List/Past Medical History Ongoing BPH without urinary obstruction Hesitancy Hypertension Incomplete bladder emptying Intertrigo mild [place] (myocardial infarction) Nocturia Protein in urine Proteinuria Smoker Urethral meatal stenosis Urge incontinence Urinary incontinence without sensory awareness Urinary retention Historical No qualifying data Procedure/Surgical History Urethral dilatation (11/03/2022), TURP - Transurethral resection of prostate (08/31/2022), Cystoscopy (01/24/2022), Colonoscopy, Shoulder replacement. Medications amLODIPine 5 mg Tab [place] Thyroid, Oral, Daily aspirin 81 mg oral [...] vaccine 07/12/ more content not included)... Normal [facility] Comment on above: Result Comment: Elec tronically [...] ischemic attack) Complete Blood Count; Status:Active; Requested for:[id number]; Comprehensive Metabolic Panel; Status:Active; Requested for:26Feb2023; Lipid [...] Once daily Device check as directed per [facility] protocol Chief Complaint NEIL WILCOX is being [...] due to atrial fibrillation, on anticoagulation. 10. [id number] at least 5. Has bled score 2 insurance changed, now able to afford [employer]. 1 Recommendations: 1. Decrease metoprolol succinate to [...] losartan in (more content not included)... Normal [employer] Tobacco Screening.on 023 Fall risk assessment b) One or more fall s in the last year [facility] [employer] 250 DO Work Phone: Tobacco use status [facility] b) No M [facility] [employer] [place] 250 DO Work Phone: Patient Educationon [...] conditioner or fan, if available. ? Apply ypms-xno-txuysln and prescription medicines only as told by [...] well after activity or exercise. Use a department chairperson on a cool setting to dry between [...] your skin and with medicines. ? Apply bhid-sau-jyvzhpl and prescription medicines only as told by your health care provider. ? Keep all follow-up visits as told by your health care provider. This is important. This information is not intended to replace advice given to you by your health care provider. Make sure you discuss any questions you have with your health care provider. Document Revised: 06/26/2022 Document Reviewed: 06/26/2022 [employer] Patient Education ? 2022 [employer] [facility] Urology Office/Clinic Noteon 01-23-2023 Urology Office/Clinic Note [...] E&M of Est. Patient Low 20-29 Min 92298 Orders: Urnls Dip Stick Auto w/o Microscopy POC 54038 Follow-up No qualifying data available f/u [facility] 8 wks. keep previously scheduled f/u w PRW this fall. Patient Education Intertrigo Problem List/Past Medical History Ongoing BPH without urinary obstruction Hesitancy Hypertension Incomplete bladder emptying mild [place] (myocardial infarction) Nocturia Protein in urine Proteinuria Smoker Urethral meatal stenosis Urge incontinence Urinary incontinence without sensory awareness Urinary retention Historical No qualifying data Procedure/Surgical History Urethral dilatation (11/03/2022), TURP - Transurethral resection of prostate (08/31/2022), Cystoscopy (01/24/2022), Colonoscopy, Shoulder replacement. Medications amLODIPine 5 mg Tab [place] Thyroid, Oral, Daily aspirin 81 mg oral [...] Dipstick: 1+ (30 mg/dl) (01/23/23 14:11:00) Specific [place] Urine Dipstick: >=1.030 (01/23/23 14:11:00) Urine Appearance Urine Dipstick: Clear (01/23/23 14:11:00) Urine Color Urine Dipstick: Yellow (01/23/23 14:11:00) Urobilinogen Urine Dipstick: Normal 0.2-1 EU/dl (01/23/23 14:11:00) pH Urine Dipstick: 5.5 (01/23/23 14:11:00) Normal [facility] Comment on above: Result Comment: Elec tronically Signed By: CHARLOTTE BAKER PA-C\Date and Time Signed: 01/23/23 14:45 EDT Patient [...] Follow these instructions at home: ? Take lbrh-qnu-jgiqzmy and prescription medicines only as told by [...] 10/06/2016 Document Revised: 04/23/2019 Document Reviewed: 04/23/2019 [employer] Patient Education ? 2019 [email or web address]. [facility] Urology Office/Clinic Noteon 01-01-2023 Urology Office/Clinic Note [...] [facility] [address], [place] [address]- Additional Instructions: 6 mos with UA Patient Education Urethral Stricture I, Jessica Landrum, personally scribed for Dr. Ferguson on 01/01/2023 13:19:03. . Documentation recorded by the scribe, Jessica Landrum, accurately reflects the services(s) I performed and decisions made by me. Authenticated by Dr. Ferguson on 01/01/2023 13:24:19. Problem List/Past Medical History Ongoing BPH without urinary obstruction Hesitancy Hypertension Incomplete bladder emptying mild [place] (myocardial infarction) Nocturia Protein in urine Proteinuria Smoker Urethral meatal stenosis Urge incontinence Urinary incontinence without sensory awareness Urinary retention Historical No qualifying data Procedure/Surgical History TURP - Transurethral resection of prostate (08/31/2022), Cystoscopy (01/24/2022), Colonoscopy, Shoulder replacement. Medications amLODIPine 5 mg Tab [place] Thyroid, Oral, Daily aspirin 81 mg oral [...] vaccine 03/ (more content not included)... Normal [facility] Comment on above: Result Comment: Elec tronically [...] in adult Healthy Weight Tips; Status:Complete; Done: [id number] Patient Instructions Please bring all medicines, vitamins, [...] Problems History of Complete colonoscopy Managed By: Bg Ochoa MD (Gastroenterology) History of Loop recorder insertion History of Rotator cuff repair History of Shoulder surgery 2 seperate surgeries History of Tonsillectomy with adenoidectomy Current Meds Medication NameInstruction amLODIPine Besylate 10 MG Oral TabletTAKE 1 TABLET DAILY. Atorvastatin Calcium 40 MG Oral TabletTAKE 1 TABLET AT BEDTIME. Mxzyturmvs-KHTJ-Zxfhbf ne 50-325-40 MG Oral TabletTAKE 1 TABLET [...] PM Social (more content not included)... Normal [employer] Tobacco Screening.on 023 Fall risk assessment a) No falls within the last year [facility] DO Work Phone: Tobacco use status CPHS b) No M [facility] DO Work Phone: Office Visit (Cardiology)on [...] the time of your visit. Loulou Arreguin PROPULSION ENGINEER in 1 weeks Follow up in 6 [...] check with insurance, and follow-up with Loulou Rodríguez in the near future to establish anticoagulation [...] MG Oral TabletTAKE 1 TABLET AT BEDTIME. Pxwokasijw-AMEO-Avcwkc ne 50-325-40 MG Oral TabletTAKE 1 TABLET [...] Caffeine us (more content not included)... Normal [employer] Tobacco Screening.on 023 Adult depression screening assessment [facility] Work Phone: Fall risk assessment a) No falls within the last year [facility] DO Work Phone: Tobacco use status CP b) No [facility] Work Phone: Office Visit (Cardiology)on 09-11-2022 Follow-up visit Diagnoses/Problems Assessed Hypertension (401.9) (I10) Overweight with body mass index (BMI) of 25 to 25.9 in adult (278.02,V85.21) (E66.3,Z68.25) Former smoker (V15.82) (Z87.891) Quit Orders Hypertension Start: Doxazosin Mesylate 4 MG Oral Tablet; TAKE 1 TABLET DAILY Overweight with body mass index (BMI) of 25 to 25.9 in adult Healthy Weight Tips; Status:Complete; Done: [id number] Some eating tips that can help you lose weight.; Status:Complete; Done: 67Gbq4663 SocHx: Former smoker Tobacco Use Screening; Status:Complete; Done: 84Agk6949 Chief Complaint NEIL WILCOX is being seen for hypertension. Current Meds Medication NameInstruction amLODIPine Besylate 10 MG Oral TabletTAKE 1 TABLET DAILY. Atorvastatin Calcium 40 MG Oral TabletTAKE 1 TABLET AT BEDTIME. Aspfepntqj-LFPC-Njyriv ne 50-325-40 MG Oral TabletTAKE 1 TABLET [...] History Problems Former smoker (V15.82) (Z87.891) Quit 1959' Review of Systems Constitutional: Denies: fever, chills, [...] as previously mentioned Vitals Vital Signs Recorded: [id number] 01:07PMRecorded: 46Kmz8257 01:00PM Systolic Wlpku224, LUE Diastolic Lying84, LUE Systolic Bpikwwm635, LUE Diastolic Jwcynvu59, LUE Systolic Liyrssll417, LUE Diastolic Ndzzfpya71, LUE Heart Rate62, L Radial Height5 ft 9 in Egrrec956 lb BMI Dwlbrdwtlu03.99 kg/m2 BSA Calculated1.96 Physical Exam GENERAL: Well [...] Sep 15 2022 7:52PM EST (Author) Normal Touchworks Covid-19 PCR (CVDTBH)on SARS-CoV-2 (COVID-19) RNA KEIKO+probe Ql (Unsp spec) Not detected Normal NOT DETECTED [facility] Comment on above: Result Comment: This test is not yet approved or cleared by the [place] FDA. When there are no FDA-approved or cleared tests available, and other criteria are met, FDA can make tests available under an emergency access mechanism called an Emergency Use Authorization (EUA). The EUA for this test is supported by the Patient Resource Specialist of Health and Human Service's (HHS's) [...] By: #### T SH, LIPID, CMP #### [facility] [address] [place], [place] [address] Dr. Oscar Paulino Office Visit (Cardiology)on 08-28-2022 [...] (V58.69) (Z79.899) Former smoker (V15.82) (Z87.891) Quit High risk medication use (V58.69) (Z79.899) Orders Hypertension Start: Doxazosin Mesylate 2 MG Oral Tablet; TAKE 1 TABLET DAILY Basic Metabolic Panel; Status:Active; Requested for:[id number]; Overweight with body mass index (BMI) of 25 to 25.9 in adult Start: Spironolactone 25 MG Oral Tablet; TAKE 1 TABLET DAILY Healthy Weight Tips; Status:Complete; Done: 81Lxw5259 Some eating tips that can help you lose weight.; Status:Complete; Done: 95Qnm0151 Paroxysmal atrial fibrillation with RVR Start: Eliquis [...] these medications, (more content not included)... Normal [employer] Tobacco Screening.on Fall risk assessment b) One or more fall s in the last year [facility] [address] DO Work Phone: Tobacco use status CPHS b) No M [facility] [address] DO Work Phone: LIPID PROFILEon 08-25-2022 CHOL-HDL RATIO NORM SEE BELOW Normal [facility] Comment on above: Result Comment: 3.3 - 4.4 LOW RISK 4.4 - 7.1 AVERAGE RISK 7.1 - 11.0 MODERATE RISK >11.0 HIGH RISK Performed By: #### T MANJIT, LIPID, CMP #### [facility] [address] [place] [address] [address] Oscar Paulino Cholesterol [Mass/Vol] 121 mg/dL Normal <=200 [facility] Comment on above: Performed By: #### T MANJIT, LIPID, CMP #### [facility] [address] [place] [address] Dr. Oscar Paulino Cholesterol in HDL [Mass/Vol] 42 mg/dL Normal 40-60 [facility] Comment on above: Performed By: #### T MANJIT, LIPID, CMP #### [facility] [address] [place] [address] [address] Oscar Paulino Cholesterol in LDL [Mass/Vol] 66.2 mg/dL Normal [facility] Comment on above: Performed By: #### T MANJIT, LIPID, CMP #### [facility] [address] [place] [address] [address] Oscar Paulino Cholesterol.total/Suzette sterol in HDL [Mass ratio] 2.9 {ratio} Normal [facility] Comment on above: Performed By: #### T SH, LIPID, CMP #### [facility] [address] [place] [address] [address] Oscar Paulino HDL NORMAL > or = 60 mg/dl - LO W CARDIOVASCULAR RISK <40 mg/dl - HIGH CARDIOVASCULAR RISK Normal [facility] Comment on above: Performed By: #### T MANJIT, LIPID, CMP #### [facility] [address] [place] [address] [address] Oscar Paulino LDL CALC NORMAL SEE BELOW Normal [facility] Comment on above: Result Comment: <100 mg/dl OPTIMAL 100 - 129 mg/dl NEAR OR ABOVE OPTIMAL 130 - 159 mg/dl BORDERLINE HIGH 160 - 189 mg/dl HIGH >190 mg/dl VERY HIGH Performed By: #### T MANJIT, LIPID, CMP #### [facility] [address] [place] [address] [address] Oscar Paulino Triglyceride [Mass/Vol] 64 mg/dL Normal <=150 [facility] Comment on above: Performed By: #### T MANJIT, LIPID, CMP #### [facility] [address] [place] [address] Dr. Oscar Paulino VLDL CALC 12.8 mg/dL Normal [facility] Comment on above: Performed By: #### T MANJIT, LIPID, CMP #### [facility] [address] [place] [address] Dr. Oscar Paulino PROF 14(COMP METB)on 022 Albumin [Mass/Vol] 3.6 g/dL Normal 3.4-5.[address] [facility] Comment on above: Performed By: #### T MANJIT, LIPID, CMP #### [facility] [address] [place] [address] Dr. Oscar Paulino Albumin/Globulin [Mass ratio] 0.8 {ratio} Normal [facility] Comment on above: Performed By: #### T MANJIT, LIPID, CMP #### [facility] [address] [place] [address] Dr. Oscar Paulino ALP [Catalytic activity/Vol] 92 U/L Normal 46-116 [facility] Comment on above: Performed By: #### T MANJIT, LIPID, CMP #### [facility] [address] [place] [address] Dr. Oscar Paulino ALT [Catalytic activity/Vol] 17 U/L Normal 16-63 [facility] Comment on above: Performed By: #### T MANJIT, LIPID, CMP #### [facility] [address] [place] [address] Dr. Oscar Paulino Anion gap [Moles/Vol] 9.7 mmol/L Normal [facility] Comment on above: Performed By: #### T MANJIT, LIPID, CMP #### [facility] [address] [place] [address] Dr. Oscar Paulino AST [Catalytic activity/Vol] 10 U/L Critically low 15-37 [facility] Comment on above: Performed By: #### T MANJIT LIPID, CMP #### [facility] [address] [place] [address] Dr. Oscar Paulino Bilirubin [Mass/Vol] 0.3 mg/dL Normal 0.2-1.0 [facility] Comment on above: Performed By: #### T MANJIT LIPID, CMP #### [facility] [address] [place] [address] Dr. Oscar Paulino Calcium [Mass/Vol] 9.4 mg/dL Normal 8.5-10.[address] [facility] Comment on above: Performed By: #### T MANJIT LIPID, CMP #### [facility] [address] [place] [address] Dr. Oscar Paulino Chloride [Moles/Vol] 102 mmol/L Normal 98-107 [facility] Comment on above: Performed By: #### T MANJIT, LIPID, CMP #### [facility] [address] [place] [address] Dr. Oscar Paulino CO2 [Moles/Vol] 29.1 mmol/L Normal 21.0-32.0 [facility] Comment on above: Performed By: #### T MANJIT, LIPID, CMP #### [facility] [address] [place] [address] Dr. Oscar Paulino Creatinine [Mass/Vol] 1.08 mg/dL Normal 0.70-1.30 [facility] Comment on above: Performed By: #### T MANJIT, LIPID, CMP #### [facility] [address] [place] [address] [address] Oscar Paulino EGFR-AF MALTESE >60 Normal >=60 [facility] Comment on above: Performed By: #### T SH, LIPID, CMP #### [facility] [address] [place] [address] [address] Oscar Paulino EGFR-NON AF MALTESE >60 Normal >=60 [facility] Comment on above: Performed By: #### T SH, LIPID, CMP #### [facility] [address] [place] [address] [address] Oscar Paulino Globulin (S) [Mass/Vol] 4.3 g/dL Normal [facility] Comment on above: Performed By: #### T SH, LIPID, CMP #### [facility] [address] [place] [address] Dr. Oscar Paulino Glucose [Mass/Vol] 104 mg/dL Normal 74-106 [facility] Comment on above: Performed By: #### T MANJIT, LIPID, CMP #### [facility] [address] [place] [address] Dr. Oscar Paulino Potassium [Moles/Vol] 3.8 mmol/L Normal 3.5-5.1 [facility] Comment on above: Performed By: #### T MANJIT, LIPID, CMP #### [facility] [address] [place] [address] Dr. Oscar Paulino Protein [Mass/Vol] 7.9 g/dL Normal 6.4-8.2 [facility] Comment on above: Performed By: #### T SH, LIPID, CMP #### [facility] [address] [place] [address] Dr. Oscar Paulino Sodium [Moles/Vol] 137 mmol/L Normal 136-145 [facility] Comment on above: Performed By: #### T SH, LIPID, CMP #### [facility] [address] [place] [address] Dr. Oscar Paulino Urea nitrogen [Mass/Vol] 18.0 mg/dL Normal 7.0-18.0 [facility] Comment on above: Performed By: #### T SH, LIPID, CMP #### [facility] [address] [place] [address] Dr. Oscar Paulino Urea nitrogen/Creatinine [Mass ratio] 16.7 mg/mg Normal [facility] Comment on above: Performed By: #### T SH, LIPID, CMP #### [facility] [address] [place] [address] Dr. Oscar Paulino TSHon 08-25-2022 TSH 2.967 uIU/mL Normal 0.358-3.[address] [facility] Comment on above: Performed By: #### T SH, LIPID, CMP #### [facility] [address] [place] [address] Dr. Oscar Paulino CBC AUTO DIFFon 08-22-2022 BASO # 0.0 103/ul Normal 0.0-0.1 [facility] Comment on above: Performed By: #### T SH, LIPID, CMP #### [facility] [address] [place] [address] Dr. Oscar Paulino Basophils/100 WBC (Bld) 0.3 % Normal 0.2-2.0 [facility] Comment on above: Performed By: #### T SH, LIPID, CMP #### [facility] [address] [place] [address] Dr. Oscar Paulino EO # 0.3 103/ul Normal 0.0-0.7 [facility] Comment on above: Performed By: #### T SH, LIPID, CMP #### [facility] [address] [place] [address] Dr. Oscar Paulino Eosinophils/100 WBC (Bld) 7.3 % Critically high 0.9-7.0 [facility] Comment on above: Performed By: #### T SH, LIPID, CMP #### [facility] [address] [place] [address] Dr. Oscar Paulino Erythrocyte distribution width (RBC) [Ratio] 11.9 % Normal 11.0-15.0 [facility] Comment on above: Performed By: #### T SH, LIPID, CMP #### [facility] [address] [place] [address] Dr. Oscar Paulino Hematocrit (Bld) [Volume fraction] 33.8 % Critically low 42.0-54.0 [facility] Comment on above: Performed By: #### T MANJIT LIPID, CMP #### [facility] [address] [place] [address] Dr. Oscar Paulino Hemoglobin (Bld) [Mass/Vol] 12.0 g/dL Critically low 14.0-18.0 [facility] Comment on above: Performed By: #### T SH, LIPID, CMP #### [facility] [address] [place] [address] Dr. Oscar Paulino IG # 0.01 10e3/ul Normal 0.00-0.03 [facility] Comment on above: Performed By: #### T SH LIPID, CMP #### [facility] [address] [place] [address] Dr. Oscar Paulino IG % 0.3 % Normal 0.0-0.5 [facility] Comment on above: Performed By: #### T SH, LIPID, CMP #### [facility] [address] [place] [address] Dr. Oscar Paulino LYMPH # 1.4 103/ul Normal 1.2-3.8 [facility] Comment on above: Performed By: #### T MANJIT LIPID, CMP #### [facility] [address] [place] [address] Dr. Oscar Paulino Lymphocytes/100 WBC (Bld) 39.2 % Normal 20.5-60.0 [facility] Comment on above: Performed By: #### T SH, LIPID, CMP #### [facility] [address] [place] [address] Dr. Oscar Paulino MANUAL DIFF REQ NO Normal [facility] Comment on above: Performed By: #### T SH, LIPID, CMP #### [facility] [address] [place] [address] Dr. Oscar Paulino MCH (RBC) [Entitic mass] 36.4 pg Critically high 25.9-34.0 [facility] Comment on above: Performed By: #### T SH, LIPID, CMP #### [facility] [address] [place] [address] Dr. Oscar Paulino MCHC (RBC) [Mass/Vol] 35.5 g/dL Critically high 29.9-35.2 [facility] Comment on above: Performed By: #### T SH, LIPID, CMP #### [facility] [address] [place] [address] Dr. Oscar Paulino MCV (RBC) [Entitic vol] 102.4 fL Critically high 80.0-94 .0 [facility] Comment on above: Performed By: #### T SH, LIPID, CMP #### [facility] [address] [place] [address] Dr. Oscar Paulino MONO # 0.2 103/ul Critically low 0.3-0.8 [facility] Comment on above: Performed By: #### T SH, LIPID, CMP #### [facility] [address] [place] [address] Dr. Oscar Paulino Monocytes/100 WBC (Bld) 6.8 % Normal 1.7-12.0 [facility] Comment on above: Performed By: #### T SH, LIPID, CMP #### [facility] [address] [place] [address] Dr. Oscar Paulino NEUT # 1.6 103/ul Normal 1.4-6.5 [facility] Comment on above: Performed By: #### T SH, LIPID, CMP #### [facility] [address] [place] [address] Dr. Oscar Paulino Neutrophils/100 WBC (Bld) 46.1 % Normal 43.0-75.0 [facility] Comment on above: Performed By: #### T SH, LIPID, CMP #### [facility] [address] [place] [address] Dr. Oscar Paulino Platelet mean volume (Bld) [Entitic vol] 8.5 fL Critically low 9.5-13.5 [facility] Comment on above: Performed By: #### T SH, LIPID, CMP #### [facility] [address] [place] [address] Dr. Oscar Paulino PLT 191 103/ul Normal 150-450 [facility] Comment on above: Performed By: #### T SH, LIPID, CMP #### [facility] [address] [place] [address] [address] Oscar Paulino RBC 3.30 106/ul Critically low 4.70-6.10 [facility] Comment on above: Performed By: #### T SH, LIPID, CMP #### [facility] [address] [place] [address] [address] Oscar Paulino WBC 3.6 103/ul Critically low 4.0-11.0 [facility] Comment on above: Performed By: #### T SH, LIPID, CMP #### [facility] [address] [place] [address] Dr. Oscar Paulino PROF CHEM 8 (BAS METB)on Anion gap [Moles/Vol] 11.0 mmol/L Normal [facility] Comment on above: Performed By: #### B MP #### [facility] [address] [place] [address] Dr. Oscar Paulino Calcium [Mass/Vol] 9.4 mg/dL Normal 8.5-10.[address] [facility] Comment on above: Performed By: #### B MP #### [facility] [address] [place] [address] Dr. Oscar Paulino Chloride [Moles/Vol] 103 mmol/L Normal 98-107 [facility] Comment on above: Performed By: #### B MP #### [facility] [address] [place] [address] Dr. Oscar Paulino CO2 [Moles/Vol] 27.7 mmol/L Normal 21.0-32.0 [facility] Comment on above: Performed By: #### B MP #### [facility] [address] [place] [address] Dr. Oscar Paulino Creatinine [Mass/Vol] 1.07 mg/dL Normal 0.70-1.30 [facility] Comment on above: Performed By: #### B MP #### [facility] [address] [place] [address] Dr. Oscar Paulino EGFR-AF MALTESE >60 Normal >=60 [facility] Comment on above: Performed By: #### B MP #### [facility] [address] [place] [address] [address] Oscar Paulino EGFR-NON AF MALTESE >60 Normal >=60 [facility] Comment on above: Performed By: #### B MP #### [facility] [address] [place] [address] [address] Oscar Paulino Glucose [Mass/Vol] 99 mg/dL Normal 74-[address] [facility] Comment on above: Performed By: #### B MP #### [facility] [address] [address] [address] Oscar Paulino Potassium [Moles/Vol] 3.7 mmol/L Normal 3.5-5.1 [facility] Comment on above: Performed By: #### B MP #### [facility] [address] [address] [address] Oscar Paulino Sodium [Moles/Vol] 138 mmol/L Normal 136-[address] [facility] Comment on above: Performed By: #### B MP #### [facility] [address] [address] [address] Oscar Paulino Urea nitrogen [Mass/Vol] 20.0 mg/dL Critically high 7.0-18.0 [facility] Comment on above: Performed By: #### B MP #### [facility] [address] [address] [address] Oscar Paulino Urea nitrogen/Creatinine [Mass ratio] 18.7 mg/mg Normal [facility] Comment on above: Performed By: #### B MP #### [facility] [address] [address] [address] Oscar Paulino PROTIMEon 08-22-2022 INR Coag (PPP) [Relative time] 1.06 {INR} Normal [facility] Comment on above: Performed By: #### P T, PTT #### [facility] [address] [address] [address] Oscar Paulino INR GUIDELINES SEE BELOW Normal [facility] Comment on above: Result Comment: ELYSIA RED INR: 2.0 - 3.0 CONDITIONS NOT LISTED BELOW 2.5 - 3.5 FOR PROSTHETIC HEART VALVE REPLACEMENT 2.5 - 3.5 RECURRENT THROMBOSIS Performed By: #### P T, PTT #### [facility] [address] [place] [address] Dr. Oscar Paulino PT Coag (PPP) [Time] 11.4 s Normal 9.0-11.6 [facility] Comment on above: Performed By: #### P T, PTT #### [facility] [address] [place] [address] Dr. Oscar Paulino PTTon 08-22-2022 aPTT Coag (Bld) [Time] 26.6 s Normal 22.3-36.2 [facility] Comment on above: Performed By: #### P T, PTT #### [facility] [address] [place] [address] Dr. Oscar Paulino [facility] SARS-CoV-2 (COVID-19) RNA KEIKO+probe Ql (Unsp spec) Not detected Normal NOT DETECTED [facility] Comment on above: Result Comment: This test is not yet approved or cleared by the [place] FDA. When there are no FDA-approved or cleared tests available, and other criteria are met, FDA can make tests available under an emergency access mechanism called an Emergency Use Authorization (EUA). The EUA for this test is supported by the [place] of Health and Human Service's (HHS's) declaration [...] SARS-CoV-2. Performed By: #### C VDTBH #### [facility] [address] [place] [address] Dr. Oscar Paulino Covid-19 PCR (CVDTB)on SARS-CoV-2 (COVID-19) RNA KEIKO+probe Ql (Unsp spec) Not detected Normal NOT DETECTED [facility] Comment on above: Result Comment: This test is not yet approved or cleared by the [place] FDA. When there are no FDA-approved or cleared tests available, and other criteria are met, FDA can make tests available under an emergency access mechanism called an Emergency Use Authorization (EUA). The EUA for this test is supported by the Patient Resource Specialist of Health and Human Service's (HHS's) [...] SARS-CoV-2. Performed By: #### C VDTBH #### [facility] [address] [place] [address] Dr. Oscar Paulino CBC AUTO DIFFon 06-28-2022 BASO # 0.0 103/ul Normal 0.0-0.1 [facility] Comment on above: Performed By: #### T SH, LIPID, CMP #### [facility] [address] [place] [address] Dr. Oscar Paulino Basophils/100 WBC (Bld) 0.4 % Normal 0.2-2.0 [facility] Comment on above: Performed By: #### T SH, LIPID, CMP #### [facility] [address] [place] [address] Dr. Oscar Paulino EO # 0.2 103/ul Normal 0.0-0.7 [facility] Comment on above: Performed By: #### T SH, LIPID, CMP #### [facility] [address] [place] [address] Dr. Oscar Paulino Eosinophils/100 WBC (Bld) 7.5 % Critically high 0.9-7.0 [facility] Comment on above: Performed By: #### T SH, LIPID, CMP #### [facility] [address] [place] [address] Dr. Oscar Paulino Erythrocyte distribution width (RBC) [Ratio] 12.3 % Normal 11.0-15.0 [facility] Comment on above: Performed By: #### T SH, LIPID, CMP #### [facility] [address] [place] [address] Dr. Oscar Paulino Hematocrit (Bld) [Volume fraction] 34.0 % Critically low 42.0-54.0 [facility] Comment on above: Performed By: #### T SH, LIPID, CMP #### [facility] [address] [place] [address] Dr. Oscar Paulino Hemoglobin (Bld) [Mass/Vol] 11.6 g/dL Critically low 14.0-18.0 [facility] Comment on above: Performed By: #### T SH, LIPID, CMP #### [facility] [address] [place] [address] Dr. Oscar Paulino IG # 0.00 10e3/ul Normal 0.00-0.03 [facility] Comment on above: Performed By: #### T SH, LIPID, CMP #### [facility] [address] [place] [address] Dr. Oscar Paulino IG % 0.0 % Normal 0.0-0.5 [facility] Comment on above: Performed By: #### T SH, LIPID, CMP #### [facility] [address] [place] [address] Dr. Oscar Paulino LYMPH # 1.0 103/ul Critically low 1.2-3.8 [facility] Comment on above: Performed By: #### T SH, LIPID, CMP #### [facility] [facility] [address] [place] [address] Dr. Oscar Paulino Lymphocytes/100 WBC (Bld) 40.1 % Normal 20.5-60.0 [facility] Comment on above: Performed By: #### T SH, LIPID, CMP #### [facility] [address] [address] [address] Oscar Paulino MANUAL DIFF REQ NO Normal [facility] Comment on above: Performed By: #### T SH, LIPID, CMP #### [facility] [address] [place] [address] Dr. Oscar Paulino MCH (RBC) [Entitic mass] 35.7 pg Critically high 25.9-34.0 [facility] Comment on above: Performed By: #### T SH, LIPID, CMP #### [facility] [address] [place] [address] Dr. Oscar Paulino MCHC (RBC) [Mass/Vol] 34.1 g/dL Normal 29.9-35.2 [facility] Comment on above: Performed By: #### T SH, LIPID, CMP #### [facility] [address] [place] [address] Dr. Oscar Paulino MCV (RBC) [Entitic vol] 104.6 fL Critically high 80.0-94 .0 [facility] Comment on above: Performed By: #### T SH, LIPID, CMP #### [facility] [address] [place] [address] Dr. Oscar Paulino MONO # 0.2 103/ul Critically low 0.3-0.8 [facility] Comment on above: Performed By: #### T SH, LIPID, CMP #### [facility] [address] [place] [address] Dr. Oscar Paulino Monocytes/100 WBC (Bld) 6.7 % Normal 1.7-12.0 [facility] Comment on above: Performed By: #### T SH, LIPID, CMP #### [facility] [address] [place] [address] Dr. Oscar Paulino NEUT # 1.1 103/ul Critically low 1.4-6.5 [facility] Comment on above: Performed By: #### T SH, LIPID, CMP #### [facility] [address] [place] [address] Dr. Oscar Paulino Neutrophils/100 WBC (Bld) 45.3 % Normal 43.0-75.0 [facility] Comment on above: Performed By: #### T MANJIT LIPID, CMP #### [facility] [address] [address] [address] Oscar Paulino Platelet mean volume (Bld) [Entitic vol] 8.4 fL Critically low 9.5-13.5 [facility] Comment on above: Performed By: #### T MANJIT, LIPID, CMP #### [facility] [address] [address] [address] Oscar Paulino PLT 164 103/ul Normal 150-450 [facility] Comment on above: Performed By: #### T MANJIT LIPID, CMP #### [facility] [address] [place] [address] Dr. Oscar Paulino RBC 3.25 106/ul Critically low 4.70-6.10 [facility] Comment on above: Performed By: #### T MANJIT LIPID, CMP #### [facility] [address] [address] [address] Oscar Paulino WBC 2.5 103/ul Critically low 4.0-11.0 [facility] Comment on above: Performed By: #### T MANJIT LIPID, CMP #### [facility] [address] [place] [address] Dr. Oscar Paulino PROF CHEM 8 (BAS METB)on Anion gap [Moles/Vol] 9.9 mmol/L Normal [facility] Comment on above: Performed By: #### B MP #### [facility] [address] [address] [address] Oscar Paulino Calcium [Mass/Vol] 9.4 mg/dL Normal 8.5-10.1 [facility] Comment on above: Performed By: #### B MP #### [facility] [address] [address] [address] Oscar Paulino Chloride [Moles/Vol] 105 mmol/L Normal 98-107 [facility] Comment on above: Performed By: #### B MP #### [facility] [address] [address] [address] Oscar Paulino CO2 [Moles/Vol] 27.3 mmol/L Normal 21.0-32.0 [facility] Comment on above: Performed By: #### B MP #### [facility] [address] [address] [address] Oscar Paulino Creatinine [Mass/Vol] 1.05 mg/dL Normal 0.70-1.30 [facility] Comment on above: Performed By: #### B MP #### [facility] [address] [address] [address] Oscar Paulino EGFR-AF MALTESE >60 Normal >=60 [facility] Comment on above: Performed By: #### B MP #### [facility] [address] [place] [address] Dr. Oscar Paulino EGFR-NON AF MALTESE >60 Normal >=60 [facility] Comment on above: Performed By: #### B MP #### [facility] [address] [place] [address] Dr. Oscar Paulino Glucose [Mass/Vol] 105 mg/dL Normal 74-106 [facility] Comment on above: Performed By: #### B MP #### [facility] [address] [place] [address] Dr. Oscar Paulino Potassium [Moles/Vol] 4.2 mmol/L Normal 3.5-5.1 [facility] Comment on above: Performed By: #### B MP #### [facility] [address] [address] [address] Oscar Paulino Sodium [Moles/Vol] 138 mmol/L Normal 136-145 [facility] Comment on above: Performed By: #### B MP #### [facility] [address] [place] [address] Dr. Oscar Paulino Urea nitrogen [Mass/Vol] 15.0 mg/dL Normal 7.0-18.0 [facility] Comment on above: Performed By: #### B MP #### [facility] [address] [place] [address] Dr. Oscar Paulino Urea nitrogen/Creatinine [Mass ratio] 14.3 mg/mg Normal [facility] Comment on above: Performed By: #### B MP #### [facility] [address] [address] [address] Oscar Paulino PROTIMEon 06-28-2022 INR Coag (PPP) [Relative time] 1.03 {INR} Normal [facility] Comment on above: Performed By: #### T SH, LIPID, CMP #### [facility] [address] [address] [address] Oscar Paulino INR GUIDELINES SEE BELOW Normal [facility] Comment on above: Result Comment: ELYSIA RED INR: 2.0 - 3.0 CONDITIONS NOT LISTED BELOW 2.5 - 3.5 FOR PROSTHETIC HEART VALVE REPLACEMENT 2.5 - 3.5 RECURRENT THROMBOSIS Performed By: #### T SH, LIPID, CMP #### [facility] [address] [place] [address] Dr. Oscar Paulino PT Coag (PPP) [Time] 11.1 s Normal 9.0-11.6 [facility] Comment on above: Performed By: #### T SH, LIPID, CMP #### [facility] [address] [address] [address] Oscar Paulino PTTon 06-28-2022 aPTT Coag (Bld) [Time] 26.2 s Normal 22.3-36.2 [facility] Comment on above: Performed By: #### T SH, LIPID, CMP #### [facility] [address] [place] [address] Dr. Oscar Paulino Tobacco Screening.on 022 Adult depression screening assessment Yes [facility] [address] DO Work Phone: [phone] Adult depression screening assessment No [facility] [address] DO Work Phone: [phone] Fall risk assessment a) No falls within the last year [facility] [address] DO Work Phone: [phone] Tobacco use status [facility] b) No M [facility] [address] [place] Work Phone: Tobacco Screening. 1-Several days [facility] [address] [place] Work Phone: Tobacco Screening. 0-Not at all [facility] [place] [address] DO Work Phone: Tobacco Screening. 2-More than half the days [facility] [address] DO Work Phone: Tobacco Screening. Somewhat Difficult [facility] [place] [address] [place] Work Phone: [phone] CT STROKE HEAD WOon 04-08-[address] [...] by: EBONI PETE Date: 2022-04-08 00:27 Normal [facility] CARDIAC STRESS/REST INJE CTIONon 10-03-2021 [facility] CARDIAC STRESS/REST INJECTION Patient Name: NEIL WILCOX STUDY: MYOCARDIAL PERFUSION STRESS TEST WITH LEXISCAN Performing facility: [facility], [address] [place] [address], [address], [place] [address] [facility] Provider: Loulou Arreguin RN, PHYS ASSISTANT PCP: Dr. Paul Cooney Supervising provider: Erick Wise DO, [facility] INDICATION: HTN Fatigue HISTORY: Gender: M; Age: 75 y/o ; Height: 0 cm; Weight: 0 kg. High Cholesterol; HTN; Fatigue; TIA Vertigo Denies smoking. COMPARISON: No comparison. ACCESSION NUMBER(S): [id number]; [id number]; [id number] ORDERING CLINICIAN: LOULOU ARREGUIN TECHNIQUE: ONE DAY [...] Electronically signed by: MATTI MIDDLETON MD Normal [facility] Risk Screeningon 08-31 Fall risk assessment a) No falls within the last year [facility] [address] DO Work Phone: Tobacco use status [facility] b) No M -[facility] [address] DO Work Phone: Tobacco Screening.on Fall risk assessment a) No falls within the last year [facility] [employer] [address] DO Work Phone: Tobacco use status [facility] b) No M -[facility] [address] DO Work Phone: BASIC METABOLIC PANELon 03-24 Anion gap [Moles/Vol] 9 mmol/L Normal 0-19 [facility] Calcium [Mass/Vol] 8.9 mg/dL Normal 8.5-10.4 [facility] Comment on above: Result Comment: RESU LT CHECKED Chloride [Moles/Vol] 104 mmol/L Normal 97-107 [facility] CO2 [Moles/Vol] 24 mmol/L Normal 24-31 [facility] Creatinine [Mass/Vol] 0.9 mg/dL Normal 0.4-1.6 [facility] ESTIMATED GFR 88 mL/min/1.73 m2 Normal [facility] Comment on above: Result Comment: GFR ml/min/1.73m2 Stage ----- 90 1 60-89 2 30-59 3 15-29 4 <15 5 For -Americans, multiply EGFR result by 1.210 Calculation not validated for patients under 18 years of age. Performed at [facility] [address] [facility] [address] Glucose [Mass/Vol] 134 mg/dL High 65-99 [facility] Potassium [Moles/Vol] 3.9 mmol/L Normal 3.4-5.1 [facility] Sodium [Moles/Vol] 137 mmol/L Normal 133-145 [facility] Urea nitrogen [Mass/Vol] 13 mg/dL Normal 8-25 [facility] Urea nitrogen/Creatinine [Mass ratio] 14.4 mg/mg Normal 8-21 [facility] CBC with Diffon 04-06-2021 AB IMMATURE NEUT 0.00 K/UL Normal 0.0-0.1 [facility] ABS BASO 0.00 K/UL Normal 0.00-0.22 [facility] ABS EOS 0.02 K/UL Normal 0-0.45 [facility] ABS NEUTROPHILS 3.73 K/UL Normal 1.8-7.7 [facility] ABS.NEUT.CALCULATED 3.73 K/UL Normal [facility] Comment on above: Result Comment: Perf ormed at [facility] [address] [facility] [address] Basophils/100 WBC (Bld) 0.00 % Normal 0-1 L [facility] DIFF TYPE AUTO DIFF Normal [facility] Eosinophils/100 WBC (Bld) 0.40 % Normal 0-3 [facility] Erythrocyte distribution width (RBC) [Ratio] 11.6 % Low 11.7-15.0 [facility] Hematocrit (Bld) [Volume fraction] 29.6 % Low 41-50 [facility] Hemoglobin (Bld) [Mass/Vol] 10.0 g/dL Low 13.5-16.5 [facility] Lymphocytes (Bld) [#/Vol] 0.97 10*3/uL Low 1.2-3.2 [facility] Lymphocytes/100 WBC (Bld) 19.10 % Low 20-40 [facility] MCH (RBC) [Entitic mass] 35.5 pg High 26-34 [facility] MCHC 33.8 % Normal 31-37 [facility] MCV (RBC) [Entitic vol] 105.0 fL High 80-100 L [facility] MEAN PLT VOL 8.4 CU Normal 7.0-12.6 [facility] Monocytes (Bld) [#/Vol] 0.35 10*3/uL Normal 0-0.8 [facility] Monocytes/100 WBC (Bld) 6.90 % Normal 0-8 L [facility] Neutrophils/100 WBC (Bld) 0.00 % Normal 0.0-1.0 [facility] Neutrophils/100 WBC (Bld) 73.60 % High 50-70 [facility] Platelets (Bld) [#/Vol] 115 10*3/uL Low 150-450 [facility] RBC (Bld) [#/Vol] 2.82 10*6/uL Low 4.5-5.5 [facility] RDW-SD 44.8 FL Normal 37.0-54.0 [facility] WBC (Bld) [#/Vol] 5.1 10*3/uL Normal 4.5-11.0 [facility] PROTHROMBIN TIMEon ANTICOAGULANT INFORMATION NOT REPORTED TO LABORATORY Normal [facility] INR Coag (PPP) [Relative time] 1.0 {INR} Normal 0.86-1.16 [facility] Comment on above: Result Comment: INR Theraputic Range: 2.0-3.5 Performed at [address] [address] PT Coag (PPP) [Time] 11.3 s Normal 9.3-12.7 [facility] PTTon 04-06-2021 aPTT Coag (Bld) [Time] 21.9 s Low 22.0-32.5 [facility] Comment on above: Result Comment: Perf ormed at [address] [address] CBC with Diffon 04-01-2021 AB IMMATURE NEUT 0.00 K/UL Normal 0.0-0.1 [facility] ABS BASO 0.02 K/UL Normal 0.00-0.22 [facility] ABS EOS 0.19 K/UL Normal 0-0.45 [facility] ABS NEUTROPHILS 1.56 K/UL Low 1.8-7.7 [facility] ABS.NEUT.CALCULATED 1.56 K/UL Normal [facility] Comment on above: Result Comment: Perf ormed at [address] [address] Basophils/100 WBC (Bld) 0.60 % Normal 0-1 L [facility] DIFF TYPE AUTO DIFF Normal [facility] Eosinophils/100 WBC (Bld) 5.30 % High 0-3 [facility] Erythrocyte distribution width (RBC) [Ratio] 11.6 % Low 11.7-15.0 [facility] Hematocrit (Bld) [Volume fraction] 40.9 % Low 41-50 [facility] Hemoglobin (Bld) [Mass/Vol] 13.4 g/dL Low 13.5-16.5 [facility] Lymphocytes (Bld) [#/Vol] 1.44 10*3/uL Normal 1.2-3.2 [facility] Lymphocytes/100 WBC (Bld) 40.30 % High 20-40 [facility] MCH (RBC) [Entitic mass] 35.2 pg High 26-34 [facility] MCHC 32.8 % Normal 31-37 [facility] MCV (RBC) [Entitic vol] 107.3 fL High 80-100 L [facility] MEAN PLT VOL 8.5 CU Normal 7.0-12.6 [facility] Monocytes (Bld) [#/Vol] 0.36 10*3/uL Normal 0-0.8 [facility] Monocytes/100 WBC (Bld) 10.10 % High 0-8 L [facility] Neutrophils/100 WBC (Bld) 0.00 % Normal 0.0-1.0 [facility] Neutrophils/100 WBC (Bld) 43.70 % Low 50-70 [facility] Platelets (Bld) [#/Vol] 149 10*3/uL Low 150-450 [facility] RBC (Bld) [#/Vol] 3.81 10*6/uL Low 4.5-5.5 [facility] RDW-SD 46.3 FL Normal 37.0-54.0 [facility] WBC (Bld) [#/Vol] 3.6 10*3/uL Low 4.5-11.0 [facility] COMPREHENSIVE METABOLIC PANE Melvin 04-01-2021 Albumin [Mass/Vol] 4.1 g/dL Normal 3.5-5.0 [facility] Albumin/Globulin [Mass ratio] 1.2 {ratio} Low 1.5-3.0 [facility] ALP [Catalytic activity/Vol] 77 U/L Normal 35-125 [facility] ALT [Catalytic activity/Vol] 16 U/L Normal 5-40 [facility] Anion gap [Moles/Vol] 10 mmol/L Normal 0-19 [facility] AST [Catalytic activity/Vol] 18 U/L Normal 5-40 [facility] Bilirubin [Mass/Vol] 0.3 mg/dL Normal 0.1-1.2 [facility] Calcium [Mass/Vol] 10.0 mg/dL Normal 8.5-10.4 [facility] Chloride [Moles/Vol] 104 mmol/L Normal 97-107 [facility] CO2 [Moles/Vol] 27 mmol/L Normal 24-31 [facility] Creatinine [Mass/Vol] 0.9 mg/dL Normal 0.4-1.6 [facility] ESTIMATED GFR 88 mL/min/1.73 m2 Normal [facility] Comment on above: Result Comment: GFR ml/min/1.73m2 Stage ----- 90 1 60-89 2 30-59 3 15-29 4 <15 5 For -Americans, multiply EGFR result by 1.210 Calculation not validated for patients under 18 years of age. Performed at [place] [address] Globulin (S) [Mass/Vol] 3.3 g/dL Normal 1.9-3.7 L [facility] Glucose [Mass/Vol] 95 mg/dL Normal 65-99 [facility] Potassium [Moles/Vol] 4.3 mmol/L Normal 3.4-5.1 [facility] Protein [Mass/Vol] 7.4 g/dL Normal 5.9-7.9 [facility] Sodium [Moles/Vol] 141 mmol/L Normal 133-145 [facility] Urea nitrogen [Mass/Vol] 16 mg/dL Normal 8-25 [facility] Urea nitrogen/Creatinine [Mass ratio] 17.8 mg/mg Normal 8-21 [facility] SARS-CoV-2,INFLUENZA A/B NUC LEIC ACID TESTon 04-01-2021 EUA DISCLAIMER [facility] Comment on above: Result Comment: This [...] is terminated or revoked sooner. Performed at [place] [address] FLU A by PCR Negative [facility] FLU B by PCR Negative Normal [facility] SARS-CoV-2 (COVID-19) RNA KEIKO+probe Ql (Unsp spec) Negative Normal NEG [facility] TYPE AND SCREENon 04-01-2021 TYPE AND SCREEN BLOOD COMPONENT TYPE - RED CELL GROUP Performed at [address] [address] UNITS ORDERED - 0 Performed at [place] [id number] SPECIMEN EXPIRATION - 04/08/2021 Performed at [address] [address] ABO/RH(D) - A POSITIVE Performed at [address] [address] ANTIBODY SCREEN - NEGATIVE Performed at [address] [address] ARM BAND NUMBER - [id number] Performed at [address] [address] SURGERY DATE - [id number] Performed at [address] [address] TEST ORDERED - TYPE AND SCREEN Performed at [place] [id number] PT TRANSFUSION HISTORY - BLOOD BANK RECORD SEARCH COMPLETED NO PREVIOUS RECORD NO PREVIOUS TRANSFUSIONS IN LIFETIME Performed at [address] [address] [facility] Comment on above: Performed By: #### T [facility] #### Main Laboratory [place] [id number] UA-REFLEX TO CULTUREon 04-01 Bacteria identified Cx Nom (U) CULTURE NOT INDICATED Normal [facility] Comment on above: Result Comment: CULT URE NOT INDICATED Performed at [place] [id number] BILI Negative Normal NEG [facility] Clarity (U) CLEAR Normal [facility] Color (U) YELLOW Normal [facility] GLUC Negative Normal NEG [facility] Hemoglobin Ql (U) Negative Normal NEG [facility] KET Negative Normal NEG [facility] LEUK Negative Normal NEG [facility] NIT Negative Normal NEG [facility] pH (U) 6.5 [pH] Normal 4.6-8.0 [facility] PROT TRACE Abnormal NEG [facility] RBC NONE SEEN Normal 0-3 [facility] SP GRAV,URINE 1.025 Normal 1.005-1.030 [facility] Urinalysis dipstick W Reflex Microscopic panel (U) MANUAL MICROSCOPIC URINES Normal [facility] URO 0.2 MG/DL Normal 0-1.0 [facility] WBC NONE SEEN Normal 0-3 [facility] OTHER Normal [facility] Comment on above: Result Comment: MUCO US Performed at [facility] [address] [facility] [address] Basophils Auto (Bld) [#/Vol] on 02-07-2021 Basophils (Bld) [#/Vol] 0.0 10*3/uL 0.0-0.2 [facility] Basophils/100 WBC Auto (Bld) on 02-07-2021 Basophils/100 WBC (Bld) 0.2 % F [facility] Blood hemoglobin measurement (mass/volume)on 02-07-2021 Hemoglobin (Bld) [Mass/Vol] 12.8 g/dL 13.0-17.0 [facility] Blood leukocytes automated c ount (number/volume)on 02-07-2021 WBC (Bld) [#/Vol] 3.5 10*3/uL 4.5-11.0 [facility] Body fluid albumin measureme nt (mass/volume)on 02-07-2021 Albumin (Body fld) [Mass/Vol] 3.7 g/dL 3.2-5.5 [facility] Cholesterol [Mass/volume] in Serum or Plasmaon 02-07-2021 Cholesterol [Mass/Vol] 127 mg/dL 140-200 Fi [facility] Comment on above: Chol less than 200 m g/dl low riskChol 201-239 mg/dl borderline riskChol 240 mg/dl and greater high risk Cholesterol in LDL Calc [Mas s/Vol]on 02-07-2021 Cholesterol in LDL [Mass/Vol] 66 mg/dL 0-100 [facility] Comment on above: LDL ATP III CLASSIFI CATIONLDL less than 100 mg/dL OptimalLDL 100-129 mg/dL Near or above optimalLDL 130-159 mg/dL Borderline highLDL 160-189 mg/dL HighLDL greater than 189 mg/dL Very high Cholesterol in VLDL Calc [Ma ss/Vol]on 02-07-2021 Cholesterol in VLDL [Mass/Vol] 10 mg/dL [facility] Creatinine and Glomerular fi ltration rate.predicted panel (S/P/Bld)on 02-07-2021 Creatinine [Mass/Vol] 0.95 mg/dL 0.64-1.27 [facility] Eosinophils Auto (Bld) [#/Vo l]on 02-07-2021 Eosinophils (Bld) [#/Vol] 0.2 10*3/uL 0.0-0.45 [facility] Eosinophils/100 WBC Auto (Bl d)on 02-07-2021 Eosinophils/100 WBC (Bld) 5.2 % [facility] Erythrocyte distribution wid th Auto (RBC) [Ratio]on 02-07-2021 Erythrocyte distribution width (RBC) [Ratio] 13.0 % 12.0-14.8 [facility] Estimated glomerular filtrat ion rate (GFR) non- Americanon 02-07-2021 GFR/1.73 sq M.predicted among non-blacks MDRD (S/P/Bld) [Vol rate/Area] > 60 mL/Min [facility] Globulin Calc (S) [Mass/Vol] on 02-07-2021 Globulin (S) [Mass/Vol] 3.6 g/dL F [facility] Hematocrit Auto (Bld) [Volum e fraction]on 02-07-2021 Hematocrit (Bld) [Volume fraction] 38.4 % 38.8-50.0 [facility] - Hematology and Cell countson 02-07-2021 Nucleated RBC/100 WBC (Bld) [Ratio] 0.1 % 0-0.5 [facility] Lymphocytes Auto (Bld) [#/Vo l]on 02-07-2021 Lymphocytes (Bld) [#/Vol] 1.2 10*3/uL 1.00-4.8 [facility] Lymphocytes/100 WBC Auto (Bl d)on 02-07-2021 Lymphocytes/100 WBC (Bld) 33.5 % [facility] MCH Auto (RBC) [Entitic mass ]on 02-07-2021 MCH (RBC) [Entitic mass] 35.8 pg 27.5-35.2 [facility] MCHC Auto (RBC) [Mass/Vol]on 02-07-2021 MCHC (RBC) [Mass/Vol] 33.4 g/dL 32.5-35.6 [facility] MCV Auto (RBC) [Entitic vol] on 02-07-2021 MCV (RBC) [Entitic vol] 107.1 fL 83.5-101 F [facility] Monocytes Auto (Bld) [#/Vol] on 02-07-2021 Monocytes (Bld) [#/Vol] 0.4 10*3/uL 0.0-0.8 [facility] Monocytes/100 WBC Auto (Bld) on 02-07-2021 Monocytes/100 WBC (Bld) 10.3 % F [facility] Neutrophils Auto (Bld) [#/Vo l]on 02-07-2021 Neutrophils (Bld) [#/Vol] 1.8 10*3/uL 1.8-7.7 [facility] Neutrophils/100 WBC Auto (Bl d)on 02-07-2021 Neutrophils/100 WBC (Bld) 50.8 % [facility] No Panel Informationon 02-07 Estimated GFR () > 60 mL/Min [facility] Comment on above: GFR estimated refere nce range: According to KDOQI guidelines, <60 ml/min/1.73m2 is sufficient to diagnose a patient with chronic kidney disease. Pharmacy Creatinine Clearance (Chem N/A [facility] Platelet mean volume Auto (B ld) [Entitic vol]on 02-07-2021 Platelet mean volume (Bld) [Entitic vol] 6.7 fL 6.6-10.1 [facility] Platelets Auto (Bld) [#/Vol] on 02-07-2021 Platelets (Bld) [#/Vol] 220 10*3/uL 150-450 [facility] Protein [Mass/volume] in Ser um or Plasmaon 02-07-2021 Protein [Mass/Vol] 7.3 g/dL 6.1-7.9 [facility] RBC Auto (Bld) [#/Vol]on RBC (Bld) [#/Vol] 3.59 10*6/uL 3.90-5.60 [facility] Serum or plasma alanine huntley otransferase measurement without P-5'-P (enzymatic activion 02-07-2021 ALT No additional P-5'-P [Catalytic activity/Vol] 13 U/L 10-60 [facility] Serum or plasma albumin/glob ulin mass ratioon 02-07-2021 Albumin/Globulin [Mass ratio] 1.0 {ratio} [facility] Serum or plasma alkaline latoya sphatase measurement (enzymatic activity/volume)on 02-07-2021 ALP [Catalytic activity/Vol] 71 U/L 32-92 [facility] Serum or plasma aspartate am inotransferase measurement (enzymatic activity/volume)on 02-07-2021 AST [Catalytic activity/Vol] 13 U/L 10-42 [facility] Serum or plasma calcium ilana urement (mass/volume)on 02-07-2021 Calcium [Mass/Vol] 9.7 mg/dL 8.2-10.2 [facility] Serum or plasma chloride rishabh surement (moles/volume)on 02-07-2021 Chloride [Moles/Vol] 102 mmol/L 95-114 [facility] Serum or plasma glucose ilana urement (mass/volume)on 02-07-2021 Glucose [Mass/Vol] 95 mg/dL 70-100 [facility] Comment on above: ADA recommended refe rence rangeRandom Glucose Reference Range is dependent on time and content of last meal. Glucose of more than 200 mg/dL in a nonstressed, ambulatory subject supports the diagnosis of Diabetes Mellitus. Serum or plasma high density lipoprotein (HDL) cholesterol measurementon 02-07-2021 Cholesterol in HDL [Mass/Vol] 51 mg/dL 29-71 [facility] Comment on above: HDL CHOL ATP-III CLA SSIFICATION Cardiovascular RiskHDL > or equal to 60 mg/dL LOWHDL < 40 mg/dL HIGH Serum or plasma potassium me asurement (moles/volume)on 02-07-2021 Potassium [Moles/Vol] 4.5 mmol/L 3.5-5.1 [facility] Serum or plasma sodium measu rement (moles/volume)on 02-07-2021 Sodium [Moles/Vol] 137 mmol/L 136-146 [facility] Serum or plasma total biliru bin measurement (mass/volume)on 02-07-2021 Bilirubin [Mass/Vol] 0.6 mg/dL 0.3-1.2 [facility] Serum or plasma total carbon dioxide measurement (moles/volume)on 02-07-2021 CO2 [Moles/Vol] 24.7 mmol/L 22.0-30.0 [facility] Serum or plasma total choles terol/high density lipoprotein (HDL) cholesterol mass noni 02-07-2021 Cholesterol.total/Suzette sterol in HDL [Mass ratio] 2.5 {ratio} [facility] Serum or plasma urea nitroge n measurement (mass/volume)on 02-07-2021 Urea nitrogen [Mass/Vol] 19 mg/dL 06-16 [facility] TSH DL <= 0.005 mIU/L Qnon 0 02-07-2021 TSH Qn 1.17 m[IU]/L 0.45-5.33 [facility] Thyroxine (T4) free [Mass/vo lume] in Serum or Plasmaon 02-07-2021 Free T4 [Mass/Vol] 0.88 ng/dL 0.61-1.12 [facility] Triglyceride [Mass/volume] i n Serum or Plasmaon 02-07-2021 Triglyceride [Mass/Vol] 52 mg/dL 35-149 F [facility] Comment on above: TRIG ATP III CLASSIF ICATIONTRIG less than 150 mg/dL NormalTRIG 150-199 mg/dL Borderline highTRIG 200-500 mg/dL High TRIG greater than 500 mg/dL Very highStandard traceable to the Center for Disease Conrtrol and Prevention (CDC) test method. WOUND CULTURE-TISSUEon 12-22 WOUND CULTURE-TISSUE Specimen source XXX : SHOULDER RIGHT Performed at [facility] [address] [facility] [address] Service Cmnt XXX-Imp: HOLD FOR 2 WEEKS Microscopic observation: NO ORGANISMS SEEN 1+ WBC Bacteria identified: ANAEROBIC GRAM POSITIVE BACILLI ONE COLONY MOST CLOSELY RESEMBLING CUTIBACTERIUM (PROPIONIBACTERIUM) ACNES Performed at [address] [address] : FINAL 12/22/2020 [facility] Comment on above: Performed By: #### T [facility] #### Main Laboratory [place] [id number] CBC with Diffon 12-17-2020 AB IMMATURE NEUT 0.00 K/UL Normal 0.0-0.1 [facility] ABS BASO 0.00 K/UL Normal 0.00-0.22 [facility] ABS EOS 0.00 K/UL Normal 0-0.45 [facility] ABS NEUTROPHILS 2.47 K/UL Normal 1.8-7.7 [facility] ABS.NEUT.CALCULATED 2.47 K/UL Normal [facility] Comment on above: Result Comment: Perf ormed at [facility] [address] [facility] [address] Basophils/100 WBC (Bld) 0.00 % Normal 0-1 L [facility] DIFF TYPE AUTO DIFF Normal [facility] Eosinophils/100 WBC (Bld) 0.00 % Normal 0-3 [facility] Erythrocyte distribution width (RBC) [Ratio] 12.1 % Normal 11.7-15.0 [facility] Hematocrit (Bld) [Volume fraction] 30.6 % Low 41-50 [facility] Hemoglobin (Bld) [Mass/Vol] 10.4 g/dL Low 13.5-16.5 [facility] Lymphocytes (Bld) [#/Vol] 0.75 10*3/uL Low 1.2-3.2 [facility] Lymphocytes/100 WBC (Bld) 20.90 % Normal 20-40 [facility] MCH (RBC) [Entitic mass] 36.2 pg High 26-34 [facility] MCHC 34.0 % Normal 31-37 [facility] MCV (RBC) [Entitic vol] 106.6 fL High 80-100 L [facility] MEAN PLT VOL 8.4 CU Normal 7.0-12.6 [facility] Monocytes (Bld) [#/Vol] 0.37 10*3/uL Normal 0-0.8 [facility] Monocytes/100 WBC (Bld) 10.30 % High 0-8 L [facility] Neutrophils/100 WBC (Bld) 0.00 % Normal 0.0-1.0 [facility] Neutrophils/100 WBC (Bld) 68.80 % Normal 50-70 [facility] Platelets (Bld) [#/Vol] 122 10*3/uL Low 150-450 [facility] RBC (Bld) [#/Vol] 2.87 10*6/uL Low 4.5-5.5 [facility] RDW-SD 47.8 FL Normal 37.0-54.0 [facility] WBC (Bld) [#/Vol] 3.6 10*3/uL Low 4.5-11.0 [facility] COMPREHENSIVE METABOLIC PANE Melvin 12-17-2020 Albumin [Mass/Vol] 3.5 g/dL Normal 3.5-5.0 [facility] Albumin/Globulin [Mass ratio] 1.3 {ratio} Low 1.5-3.0 [facility] ALP [Catalytic activity/Vol] 63 U/L Normal 35-125 [facility] ALT [Catalytic activity/Vol] 10 U/L Normal 5-40 [facility] Comment on above: Result Comment: Perf ormed at [facility] [address] [address] [facility] [address] Anion gap [Moles/Vol] 11 mmol/L Normal 0-19 [facility] AST [Catalytic activity/Vol] 15 U/L Normal 5-40 [facility] Bilirubin [Mass/Vol] 0.7 mg/dL Normal 0.1-1.2 [facility] Calcium [Mass/Vol] 9.0 mg/dL Normal 8.5-10.4 [facility] Chloride [Moles/Vol] 99 mmol/L Normal 97-107 [facility] CO2 [Moles/Vol] 26 mmol/L Normal 24-31 [facility] Creatinine [Mass/Vol] 0.9 mg/dL Normal 0.4-1.6 [facility] Globulin (S) [Mass/Vol] 2.7 g/dL Normal 1.9-3.7 L [facility] Glucose [Mass/Vol] 129 mg/dL High 65-99 [facility] Potassium [Moles/Vol] 3.8 mmol/L Normal 3.4-5.1 [facility] Protein [Mass/Vol] 6.2 g/dL Normal 5.9-7.9 [facility] Sodium [Moles/Vol] 136 mmol/L Normal 133-145 [facility] Urea nitrogen [Mass/Vol] 13 mg/dL Normal 8-25 [facility] Urea nitrogen/Creatinine [Mass ratio] 14.4 mg/mg Normal 8-21 [facility] FREE T4on 12-09-2020 Free T4 [Mass/Vol] 1.2 ng/dL Normal 0.9-1.7 [facility] Comment on above: Result Comment: Perf ormed at [address] [address] Performed By: #### T [facility] #### Main Laboratory [address] [address] CBC with Diffon 12-08-2020 AB IMMATURE NEUT 0.00 K/UL Normal 0.0-0.1 [facility] ABS BASO 0.01 K/UL Normal 0.00-0.22 [facility] ABS EOS 0.20 K/UL Normal 0-0.45 [facility] ABS NEUTROPHILS 1.38 K/UL Low 1.8-7.7 [facility] Comment on above: Result Comment: DARELL ECTED ON 12/08 AT 1254: PREVIOUSLY REPORTED 1.39 ABS.NEUT.CALCULATED 1.39 K/UL Normal [facility] Comment on above: Result Comment: Perf ormed at [facility] [address] [facility] [address] Basophils/100 WBC (Bld) 0.30 % Normal 0-1 L [facility] DIFF TYPE AUTO DIFF Normal [facility] Eosinophils/100 WBC (Bld) 6.40 % High 0-3 [facility] Erythrocyte distribution width (RBC) [Ratio] 11.9 % Normal 11.7-15.0 [facility] Hematocrit (Bld) [Volume fraction] 40.0 % Low 41-50 [facility] Hemoglobin (Bld) [Mass/Vol] 13.5 g/dL Normal 13.5-16.5 [facility] Lymphocytes (Bld) [#/Vol] 1.20 10*3/uL Normal 1.2-3.2 [facility] Lymphocytes/100 WBC (Bld) 38.60 % Normal 20-40 [facility] MCH (RBC) [Entitic mass] 36.0 pg High 26-34 [facility] MCHC 33.8 % Normal 31-37 [facility] MCV (RBC) [Entitic vol] 106.7 fL High 80-100 L [facility] MEAN PLT VOL 8.5 CU Normal 7.0-12.6 [facility] Monocytes (Bld) [#/Vol] 0.31 10*3/uL Normal 0-0.8 [facility] Monocytes/100 WBC (Bld) 10.00 % High 0-8 L [facility] Neutrophils/100 WBC (Bld) 0.00 % Normal 0.0-1.0 [facility] Neutrophils/100 WBC (Bld) 44.70 % Low 50-70 [facility] PLATELET ESTIMATE ADEQUATE Normal [facility] Platelets (Bld) [#/Vol] 168 10*3/uL Normal 150-450 [facility] RBC (Bld) [#/Vol] 3.75 10*6/uL Low 4.5-5.5 [facility] RBC morphology finding Nom (Bld) CONSISTENT WITH PERIPHERAL SMEAR Normal [facility] RDW-SD 46.6 FL Normal 37.0-54.0 [facility] WBC (Bld) [#/Vol] 3.1 10*3/uL Low 4.5-11.0 [facility] WBC MORPHOLOGY SMEAR REVIEWED AND FOUND CONSISTENT WITH AUTOMATED DIFFERENTIAL Normal [facility] COMPREHENSIVE METABOLIC PANE Melvin 12-08-2020 Albumin [Mass/Vol] 4.2 g/dL Normal 3.5-5.0 [facility] Albumin/Globulin [Mass ratio] 1.3 {ratio} Low 1.5-3.0 [facility] ALP [Catalytic activity/Vol] 77 U/L Normal 35-125 [facility] ALT [Catalytic activity/Vol] 10 U/L Normal 5-40 [facility] Anion gap [Moles/Vol] 10 mmol/L Normal 0-19 [facility] AST [Catalytic activity/Vol] 16 U/L Normal 5-40 [facility] Bilirubin [Mass/Vol] 0.7 mg/dL Normal 0.1-1.2 [facility] Calcium [Mass/Vol] 9.6 mg/dL Normal 8.5-10.4 [facility] Chloride [Moles/Vol] 102 mmol/L Normal 97-107 [facility] CO2 [Moles/Vol] 28 mmol/L Normal 24-31 [facility] Creatinine [Mass/Vol] 1.1 mg/dL Normal 0.4-1.6 [facility] ESTIMATED GFR 70 mL/min/1.73 m2 Normal [facility] Comment on above: Result Comment: GFR ml/min/1.73m2 Stage ----- 90 1 60-89 2 30-59 3 15-29 4 <15 5 For -Americans, multiply EGFR result by 1.210 Calculation not validated for patients under 18 years of age. Performed at [facility] [address] [facility] [address] Globulin (S) [Mass/Vol] 3.2 g/dL Normal 1.9-3.7 L [facility] Glucose [Mass/Vol] 94 mg/dL Normal 65-99 [facility] Potassium [Moles/Vol] 4.1 mmol/L Normal 3.4-5.1 [facility] Protein [Mass/Vol] 7.4 g/dL Normal 5.9-7.9 [facility] Sodium [Moles/Vol] 140 mmol/L Normal 133-145 [facility] Urea nitrogen [Mass/Vol] 15 mg/dL Normal 8-25 [facility] Urea nitrogen/Creatinine [Mass ratio] 13.6 mg/mg Normal 8-21 [facility] EKGon 12-08-2020 Electrocardiogram EKG Ventricular Rate : 51 BPM Atrial Rate : 51 BPM P-R Interval : 186 ms QRS Duration : 102 ms Q-T Interval : 432 ms QTC Calculation(Bazett) : 398 ms Calculated P [place] : 70 degrees Calculated R [place] : 44 degrees Calculated T [place] : 63 degrees Diagnosis:Sinus bradycardia with occasional Premature ventricular complexes Otherwise normal ECG No previous ECGs available Confirmed by XIN TONG DO ([id number]) on 12/10/2020 9:37:02 AM Normal [facility] Electrocardiogram EKG Ventricular Rate : 57 BPM Atrial Rate : 57 BPM P-R Interval : 174 ms QRS Duration : 102 ms Q-T Interval : 430 ms QTC Calculation(Bazett) : 418 ms Calculated P [place] : 74 degrees Calculated R [place] : 56 degrees Calculated T [place] : 69 degrees Diagnosis:Sinus bradycardia with Premature atrial complexes and Premature ventricular complexes or Fusion complexes Otherwise normal ECG When compared with ECG of 08-DEC-2020 11:04, Premature atrial complexes are now Present Confirmed by XIN TONG DO ([id number]) on 12/10/2020 9:36:45 AM Normal [facility] SARS-CoV-2,INFLUENZA A/B NUC LEIC ACID TESTon 12-08-2020 EUA DISCLAIMER [facility] Comment on above: Result Comment: This [...] is terminated or revoked sooner. Performed at [place] [address] FLU A by PCR Negative [facility] FLU B by PCR Negative [facility] SARS-CoV-2 (COVID-19) RNA KEIKO+probe Ql (Unsp spec) Negative Normal [facility] TSHon 12-08-2020 TSH 0.24 MIU/L Low 0.27-4.20 [facility] Comment on above: Result Comment: Perf ormed at [place] [id number] Performed By: #### T [facility] ####[facility] [place] [address] UA-REFLEX TO CULTUREon 12-08 Bacteria identified Cx Nom (U) CULTURE NOT INDICATED [facility] Comment on above: Result Comment: CULT URE NOT INDICATED Performed at [place] [address] BILI Negative Normal [facility] Clarity (U) CLEAR Normal [facility] Color (U) YELLOW Normal [facility] GLUC Negative Normal [facility] Hemoglobin Ql (U) Negative Normal NEG [facility] KET Negative Normal NEG [facility] LEUK Negative Normal NEG [facility] NIT Negative Normal [facility] pH (U) 6.0 [pH] Normal 4.6-8.0 [facility] PROT TRACE Abnormal NEG [facility] RBC OCC Normal 0-3 [facility] SP GRAV,URINE 1.025 Normal 1.005-1.030 [facility] Urinalysis dipstick W Reflex Microscopic panel (U) MANUAL MICROSCOPIC URINES Normal [facility] URO 0.2 MG/DL Normal 0-1.0 [facility] WBC OCC Normal 0-3 [facility] OTHER Normal [facility] Comment on above: Result Comment: PRES ENT MUCOUS Performed at [facility] [address] [facility] [address] B12/Folate Panelon Cobalamin (Vitamin B12) [Mass/Vol] 507 pg/mL Normal 232-1245 [facility] Comment on above: Performed By: #### F T4, B12FOL, TSHX #### [employer] [address] [place] [address] [id number] Machine Riveter: Juan F Dominguez MD Folic Acid 10.6 ng/mL Normal >4.8 [facility] Comment on above: Performed By: #### F T4, B12FOL, TSHX #### [facility] [address] [place] [address] [phone] Machine Riveter: Juan F Dominguez MD T4, Freeon 10-13-2020 Thyroxine, Free 0.97 ng/dL 0.93 - 1.7 ng/dL [place], [place] TSH w/reflex to FT4on 2020 TSH Qn 0.04 m[IU]/L Low 0.30-5.00 [facility] Comment on above: Performed By: #### F T4, B12FOL, TSHX #### [facility] [address] [place] [address] [id number] Machine Riveter: Juan F Dominguez MD TSH with Reflexon 10-13-2020 Interpretation and review of laboratory results Abnormal [place], [place] TSH Qn 0.04 m[IU]/L Low [place] Thyroxine, Freeon 10-13-2020 Thyroxine, Free 0.97 ng/dL Normal 0.93-1.70 [facility] Comment on above: Performed By: #### F T4, B12FOL, TSHX #### [employer] [address] [place] [address] [phone] Machine Riveter: Juan F Dominguez MD Vitamin B12 & Folateon 10-13 Cobalamin (Vitamin B12) [Mass/Vol] 507 pg/mL 232 - 1245 pg/mL [place], [place] Folate 10.6 ng/mL >4.8 [place], [place] C REACTIVE PROTEINon 021 C REACTIVE PROTEIN 0.3 MG/DL Normal 0-2.0 [facility] Comment on above: Result Comment: LESS THAN Performed at [address] [address] Performed By: #### C RP #### Main Laboratory [address] [address] CBC with Diffon 10-11-2020 AB IMMATURE NEUT 0.00 K/UL Normal 0.0-0.1 [facility] ABS BASO 0.02 K/UL Normal 0.00-0.22 [facility] ABS EOS 0.21 K/UL Normal 0-0.45 [facility] ABS NEUTROPHILS 1.64 K/UL Low 1.8-7.7 [facility] ABS.NEUT.CALCULATED 1.64 K/UL Normal [facility] Comment on above: Result Comment: Perf ormed at [facility] [address] [facility] [address] Basophils/100 WBC (Bld) 0.50 % Normal 0-1 L [facility] DIFF TYPE AUTO DIFF Normal [facility] Eosinophils/100 WBC (Bld) 5.10 % High 0-3 [facility] Erythrocyte distribution width (RBC) [Ratio] 11.3 % Low 11.7-15.0 [facility] Hematocrit (Bld) [Volume fraction] 39.6 % Low 41-50 [facility] Hemoglobin (Bld) [Mass/Vol] 13.6 g/dL Normal 13.5-16.5 [facility] Lymphocytes (Bld) [#/Vol] 1.74 10*3/uL Normal 1.2-3.2 [facility] Lymphocytes/100 WBC (Bld) 42.00 % High 20-40 [facility] MCH (RBC) [Entitic mass] 36.2 pg High 26-34 [facility] MCHC 34.3 % Normal 31-37 [facility] MCV (RBC) [Entitic vol] 105.3 fL High 80-100 L [facility] MEAN PLT VOL 8.4 CU Normal 7.0-12.6 [facility] Monocytes (Bld) [#/Vol] 0.53 10*3/uL Normal 0-0.8 [facility] Monocytes/100 WBC (Bld) 12.80 % High 0-8 L [facility] Neutrophils/100 WBC (Bld) 0.00 % Normal 0.0-1.0 [facility] Neutrophils/100 WBC (Bld) 39.60 % Low 50-70 [facility] Platelets (Bld) [#/Vol] 186 10*3/uL Normal 150-450 [facility] RBC (Bld) [#/Vol] 3.76 10*6/uL Low 4.5-5.5 [facility] RDW-SD 44.8 FL Normal 37.0-54.0 [facility] WBC (Bld) [#/Vol] 4.1 10*3/uL Low 4.5-11.0 [facility] SEDIMENTATION RATEon 021 SEDIMENTATION RATE 50 MM/HR High 0-12 [facility] Comment on above: Result Comment: Perf ormed at [facility] [address] [address] [facility] [address] Automated basophil %on 10-07 Basophils/100 WBC (Bld) 0.2 % F [facility] Automated basophil counton 0 2020 Basophils (Bld) [#/Vol] 0.0 10*3/uL 0.0-0.2 [facility] Automated blood lymphocyte c ount (number/volume)on 2020 Lymphocytes (Bld) [#/Vol] 1.2 10*3/uL 1.00-4.8 [facility] Automated blood lymphocyte c ount as percentage of total leukocyteson 2020 Lymphocytes/100 WBC (Bld) 25.0 % [facility] Automated blood monocyte cou nton 2020 Monocytes (Bld) [#/Vol] 0.6 10*3/uL 0.0-0.8 [facility] Automated blood platelet cou nt (count/volume)on 2020 Platelets (Bld) [#/Vol] 177 10*3/uL 150-450 [facility] Automated blood platelet rishabh n volume measurementon 2020 Platelet mean volume (Bld) [Entitic vol] 6.9 fL 6.6-10.1 [facility] Automated eosinophil %on Eosinophils/100 WBC (Bld) 3.8 % [facility] Automated eosinophil counton 2020 Eosinophils (Bld) [#/Vol] 0.2 10*3/uL 0.0-0.45 [facility] Automated erythrocyte distri bution width ratioon 2020 Erythrocyte distribution width (RBC) [Ratio] 12.3 % 12.0-14.8 [facility] Automated erythrocyte mean c orpuscular hemoglobin (mass per erythrocyte)on 2020 MCH (RBC) [Entitic mass] 35.9 pg 27.5-35.2 [facility] Automated erythrocyte mean c orpuscular hemoglobin concentration measurement (mass/volon 2020 MCHC (RBC) [Mass/Vol] 34.2 g/dL 32.5-35.6 [facility] Automated erythrocyte mean c orpuscular volumeon 2020 MCV (RBC) [Entitic vol] 105.1 fL 83.5-101 F [facility] Automated monocyte %on 10-07 Monocytes/100 WBC (Bld) 12.5 % F [facility] Automated neutrophil %on Neutrophils/100 WBC (Bld) 58.5 % [facility] Blood erythrocytes automated count (number/volume)on 2020 RBC (Bld) [#/Vol] 3.74 10*6/uL 3.90-5.60 [facility] Blood hemoglobin measurement (mass/volume)on 2020 Hemoglobin (Bld) [Mass/Vol] 13.4 g/dL 13.0-17.0 [facility] Blood leukocytes automated c ount (number/volume)on 2020 WBC (Bld) [#/Vol] 4.6 10*3/uL 4.5-11.0 [facility] Blood neutrophil count by au tomated method (number/volume)on 2020 Neutrophils (Bld) [#/Vol] 2.7 10*3/uL 1.8-7.7 [facility] Body fluid albumin measureme nt (mass/volume)on 2020 Albumin (Body fld) [Mass/Vol] 3.6 g/dL 3.2-5.5 [facility] Cholesterol [Mass/volume] in Serum or Plasmaon 2020 Cholesterol [Mass/Vol] 93 mg/dL 140-200 [facility] Comment on above: Chol less than 200 m g/dl low riskChol 201-239 mg/dl borderline riskChol 240 mg/dl and greater high risk Cholesterol in LDL [Mass/vol ume] in Serum or Plasma by calculationon 2020 Cholesterol in LDL [Mass/Vol] 42 mg/dL 0-100 [facility] Comment on above: LDL ATP III CLASSIFI CATIONLDL less than 100 mg/dL OptimalLDL 100-129 mg/dL Near or above optimalLDL 130-159 mg/dL Borderline highLDL 160-189 mg/dL HighLDL greater than 189 mg/dL Very high Cholesterol in VLDL [Mass/vo lume] in Serum or Plasma by calculationon 2020 Cholesterol in VLDL [Mass/Vol] 7 mg/dL [facility] Estimated glomerular filtrat ion rate (GFR) non- Americanon 2020 GFR/1.73 sq M predicted among non-blacks MDRD (S/P/Bld) [Vol rate/Area] 51 mL/min/{1.73_m2} [facility] Hematocrit [Volume Fraction] of Blood by Automated counton 2020 Hematocrit (Bld) [Volume fraction] 39.3 % 38.8-50.0 [facility] Otheron 2020 GFR/1.73 sq M.predicted MDRD (S/P/Bld) [Vol rate/Area] mL/min/{1.73_m2} [facility] Comment on above: GFR estimated refere nce range: According to KDOQI guidelines, <60 ml/min/1.73m2 is sufficient to diagnose a patient with chronic kidney disease. Nucleated RBC/100 WBC (Bld) [Ratio] 0.0 % 0-0.5 [facility] Creatinine Clearance (Chem N/A [facility] Protein [Mass/volume] in Ser um or Plasmaon 2020 Protein [Mass/Vol] 7.3 g/dL 6.1-7.9 [facility] Serum globulin measurement b y calculation (mass/volume)on 2020 Globulin (S) [Mass/Vol] 3.7 g/dL F [facility] Serum or plasma alanine huntley otransferase measurement without P-5'-P (enzymatic activion 2020 ALT No additional P-5'-P [Catalytic activity/Vol] 23 U/L 10-60 [facility] Serum or plasma albumin/glob ulin mass ratioon 2020 Albumin/Globulin [Mass ratio] 1.0 {ratio} [facility] Serum or plasma alkaline latoya sphatase measurement (enzymatic activity/volume)on 2020 ALP [Catalytic activity/Vol] 63 U/L 32-92 [facility] Serum or plasma aspartate am inotransferase measurement (enzymatic activity/volume)on 2020 AST [Catalytic activity/Vol] 18 U/L 10-42 [facility] Serum or plasma calcium ilana urement (mass/volume)on 2020 Calcium [Mass/Vol] 9.8 mg/dL 8.2-10.2 [facility] Serum or plasma chloride rishabh surement (moles/volume)on 2020 Chloride [Moles/Vol] 104 mmol/L 95-114 [facility] Serum or plasma creatinine m easurement with calculation of estimated glomerular filtron 2020 Creatinine [Mass/Vol] 1.37 mg/dL 0.64-1.27 [facility] Serum or plasma glucose ilana urement (mass/volume)on 2020 Glucose [Mass/Vol] 116 mg/dL 70-100 [facility] Comment on above: ADA recommended refe rence rangeRandom Glucose Reference Range is dependent on time and content of last meal. Glucose of more than 200 mg/dL in a nonstressed, ambulatory subject supports the diagnosis of Diabetes Mellitus. Serum or plasma high density lipoprotein (HDL) cholesterol measurementon 2020 Cholesterol in HDL [Mass/Vol] 43 mg/dL 29-71 [facility] Comment on above: HDL CHOL ATP-III CLA SSIFICATION Cardiovascular RiskHDL > or equal to 60 mg/dL LOWHDL < 40 mg/dL HIGH Serum or plasma potassium me asurement (moles/volume)on 2020 Potassium [Moles/Vol] 4.1 mmol/L 3.5-5.1 [facility] Serum or plasma sodium measu rement (moles/volume)on 2020 Sodium [Moles/Vol] 140 mmol/L 136-146 [facility] Serum or plasma total biliru bin measurement (mass/volume)on 2020 Bilirubin [Mass/Vol] 0.7 mg/dL 0.3-1.2 [facility] Serum or plasma total carbon dioxide measurement (moles/volume)on 2020 CO2 [Moles/Vol] 24.4 mmol/L 22.0-30.0 [facility] Serum or plasma total choles terol/high density lipoprotein (HDL) cholesterol mass noni 2020 Cholesterol.total/Suzette sterol in HDL [Mass ratio] 2.2 {ratio} [facility] Serum or plasma urea nitroge n measurement (mass/volume)on 2020 Urea nitrogen [Mass/Vol] 24 mg/dL 9-23 [facility] Triglyceride [Mass/volume] i n Serum or Plasmaon 2020 Triglyceride [Mass/Vol] 39 mg/dL 35-149 F [facility] Comment on above: TRIG ATP III CLASSIF [...] Jeffery Caceres MD 02/04/20 Final result Normal [facility] 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 [facility] [place] EXAMINATION: CT OF T HE HEAD WITHOUT [...] of the visualized skull or soft tissues. [facility] [place] Faustino, pn Incoming Radiant Results From [employer] - 02/04/2020 4:14 PM EDT EXAMINATION: CT [...] cerebral artery infarct without evidence for hemorrhage. [place], [place] EVENT MONITORon 01-07-[address] [address] EVENT MONITOR PATIENT NAME: NEIL WILCOX : 1945 MED REC NO: [id number] ROOM: [facility] ACCOUNT NO: [id number] ADMIT DATE: 12/21/2019 PROVIDER: Sabine Schrader EVENT [...] 4. Rare PVC's with couplets. SABINE SCHRADER JI/BAN Doc#: Unknown Normal [facility] CTA HEAD NECK W CONTRASTon 0 [...] Wilton Parekh MD 12/22/19 Final result Normal [facility] Comp Metabolic Pr/rfx MGon 0 12-22-2019 AST [Catalytic activity/Vol] 21 U/L Normal <40 [facility] Comment on above: Performed By: #### C MPX, GLYHGB, LIPR, LACTIC, CDP #### [address] [address] Machine Riveter: Juan F Dominguez MD Drug Scr, Abuse, Uron 2019 Amphetamine(s),Ur Negative Normal NEG [facility] Comment on above: Result Comment: (Positive cutoff 1000 ng/mL) Performed By: #### ALEXIS MIRANDA, UMICAO #### [facility] [employer] [address] [place] [id number] Machine Riveter: Juan F Dominguez MD Barbiturate(s),Ur Positive Abnormal NEG [facility] [facility] Comment on above: Result Comment: (Positive cutoff 200 ng/mL) Performed By: #### ALEXIS MIRANDA, UMICAO #### [facility] [employer] [address] [place] [id number] Machine Riveter: Juan F Dominguez MD Base excess Calc (Bld) [Moles/Vol] Negative Normal NEG [facility] Comment on above: Result Comment: (Positive cutoff 300 ng/mL) Performed By: #### ALEXIS MIRANDA, UMICAO #### [facility] [address] [place] [address] Machine Riveter: Juan F Dominguez MD Benzodiazepine(s) Negative Normal NEG [facility] Comment on above: Result Comment: (Positive cutoff 200 ng/mL) Performed By: #### ALEXIS MIRANDA, UMICAO #### [facility] [employer] [address] [place] [address] Machine Riveter: Juan F Dominguez MD Cannabinoid(s),Ur Negative Normal NEG [facility] Comment on above: Result Comment: (Positive cutoff 50 ng/mL) Performed By: #### ALEXIS MIRANDA, UMICAO #### [facility] [address] [place] [address] Machine Riveter: Juan F Dominguez MD Interpretive Info Assay provides medic al screening only. The absence of expected drug(s) and/or Normal [facility] Comment on above: Result Comment: meta bolite(s) may indicate diluted or adulterated urine, limitations of testing or timing of collection. Testing for legal purposes should be confirmed by another method. To request confirmation of test result, please call the lab within 7 days of sample submission. Performed By: #### ALEXIS MIRANDA UMICAO #### [employer] [address] [place] [address] Machine Riveter: Juan F Dominguez MD Methadone Ql (U) Negative Normal NEG [facility] Comment on above: Result Comment: (Positive cutoff 300 ng/mL) Performed By: #### ALEXIS MIRANDA, UMICAO #### [facility] [address] [place] [address] Machine Riveter: Juan F Dominguez MD Opiate(s), Ur Negative Normal NEG [facility] Comment on above: Result Comment: (Positive cutoff 300 ng/mL) Performed By: #### ALEXIS MIRANDA UMICAO #### [facility] [address] [place] [phone] Machine Riveter: Juan F Dominguez MD Oxycodone, Urine Negative Normal NEG [facility] Comment on above: Result Comment: (Positive cutoff 100 ng/mL) Performed By: #### ALEXIS MIRANDA, UMICAO #### [facility] [address] [place] [address] 96176 Machine Riveter: Juan F Dominguez MD Phencyclidine, Ur Negative Normal NEG [facility] Comment on above: Result Comment: (Positive cutoff 25 ng/mL) Performed By: #### D AU, UA, UMICAO #### [facility] [address] [place] [address] Machine Riveter: Juan F Dominguez MD Hemoglobin A1Con 12-22-2019 HbA1c (Bld) [Mass fraction] 120 mg/dL Normal [facility] Comment on above: Result Comment: The ADA and AACC recommend providing the estimated average glucose result to permit better patient understanding of their HBA1c result. Performed By: #### Artem SCHULZ UA, UMICAO #### [facility] [address] [place] [address]202 Machine Riveter: Juan F Dominguez MD HbA1c (Bld) [Mass fraction] 5.8 % Normal 4.0-6.0 [facility] Comment on above: Performed By: #### ALEXIS MIRANDA, UMICAO #### [facility] [address] [place] [address] 07745 Machine Riveter: Juan F Dominguez MD Lactic Acidon 12-22-2019 Lactate [Moles/Vol] 1.2 mmol/L Normal 0.7-2.1 [facility] Comment on above: Performed By: #### ALEXIS MIRANDA, UMICAO #### [facility] [address] [place] [address] 63558 Machine Riveter: Juan F Dominguez MD Lipid Profileon 12-22-2019 Cholesterol [Mass/Vol] 137 mg/dL Normal <200 [facility] Comment on above: Result Comment: Cholesterol Guidelines: <200 Desirable 200-240 Borderline >240 Undesirable Performed By: #### Artem SCHULZ UA, UMICAO #### [facility] [address] [place] [phone] Machine Riveter: Juan F Dominguez MD Cholesterol in HDL [Mass/Vol] 53 mg/dL Normal >40 [facility] Comment on above: Result Comment: HDL Guidelines: <40 Undesirable 40-59 Borderline >59 Desirable Performed By: #### Artem SCHULZ UA, UMICAO #### [facility] [address] [place] [address] 01486 Machine Riveter: Juan F Dominguez MD Cholesterol in LDL [Mass/Vol] 73 mg/dL Normal 0-130 [facility] Comment on above: Result Comment: LDL Guidelines: <100 Desirable 100-129 Near to/above Desirable 130-159 Borderline >159 Undesirable Direct (measured) LDL and calculated LDL are not interchangeable tests. Performed By: #### D ALEXIS SCHULZ, UMICAO #### [facility] [employer] [address] [place] [address]694 Machine Riveter: Juan F Dominguez MD Cholesterol.total/Suzette sterol in HDL [Mass ratio] 2.6 {ratio} Normal <5 [facility] Comment on above: Performed By: #### ALEXIS MIRANDA, UMICAO #### [facility] [employer] [address] [place] [address] 82403 Machine Riveter: Juan F Dominguez MD Triglyceride [Mass/Vol] 57 mg/dL Normal <150 [facility] Comment on above: Result Comment: Triglyceride Guidelines: <150 Desirable 150-199 Borderline 200-499 High >499 Very high Based on AHA Guidelines for fasting triglyceride, June 2012. Performed By: #### ALEXIS MIRANDA, UMICAO #### [facility] [employer] [address] [place] [address] 01364 Machine Riveter: Juan F Dominguez MD Urinalysis, Routineon 2019 Acetoacetic Acid,Ur TRACE Abnormal NEG [facility] Comment on above: Performed By: #### D ALEXIS SCHULZ, UMICAO #### [facility] [employer] [address] [place] [address]26 Machine Riveter: Juan F Dominguez MD Bilirubin, SemiQt,Ur Negative Normal NEG [facility] Comment on above: Performed By: #### Artem SCHULZ UA, UMICAO #### [facility] [employer] [address] [place] [address] 76383 Machine Riveter: Juan F Dominguez MD Color (U) YELLOW Normal YEL [facility] Comment on above: Performed By: #### Artem AU UA, UMICAO #### [facility] [address] [place] [address] 80765 Machine Riveter: Juan F Dominguez MD Glucose Ql (U) Negative Normal NEG [facility] Comment on above: Performed By: #### Artem AU, UA, UMICAO #### [address] [address] Machine Riveter: Juan F Dominguez MD Hemoglobin, Ur Negative Normal NEG [facility] Comment on above: Performed By: #### Artem SCHULZ, UA, UMICAO #### [address] [address] Machine Riveter: Juan F Dominguez MD Leukocyte esterase Test strip Ql (U) Negative Normal NEG [facility] Comment on above: Performed By: #### Artem SCHULZ UA, UMICAO #### [address] [address] Machine Riveter: Juan F Dominguez MD Nitrite,Ur Negative Normal NEG [facility] Comment on above: Performed By: #### Artem SCHULZ, UA, UMICAO #### [address] [address] Machine Riveter: Juan F Dominguez MD pH (U) 5.0 [pH] Normal 5.0-8.0 [facility] Comment on above: Performed By: #### Artem AU, UA, UMICAO #### [facility] [address] [place] [address] 12048 Machine Riveter: Juan F Dominguez MD Protein Ql (U) 1+ Abnormal NEG [facility] Comment on above: Performed By: #### Artem AU, UA, UMICAO #### [address] [address] Machine Riveter: Juan F Dominguez MD Specific gravity (U) [Rel density] 1.025 Normal 1.005-1.030 [facility] Comment on above: Performed By: #### Artem SCHULZ UA, UMICAO #### [address] [address] Machine Riveter: Juan F Dominguez MD Turbidity CLEAR Normal CLEAR [facility] Comment on above: Performed By: #### Artem SCHULZ UA, UMICAO #### [address] [address] Machine Riveter: Juan F Dominguez MD Urobilinogen,Ur Normal Normal NORM [facility] Comment on above: Performed By: #### Artem SCHULZ UA, UMICAO #### [address] [address] Machine Riveter: Juan F Dominguez MD Urinalysis,Microon 0 ----- Normal [facility] Comment on above: Performed By: #### Artem SCHULZ UA, UMICAO #### [address] [address] Machine Riveter: Juan F Dominguez MD Casts LM.LPF (Urine sed) [#/Area] 2 TO 5 HYALINE Normal 0-8 [facility] Comment on above: Result Comment: Refe rence range defined for non-centrifuged specimen. Performed By: #### Artem SCHULZ UA, UMICAO #### [address] [address] Machine Riveter: Juan F Dominguez MD Epithelial cells LM.HPF (Urine sed) [#/Area] 0 TO 2 Normal 0-5 [facility] Comment on above: Performed By: #### Artem SCHULZ UA, UMICAO #### [address] [address] Machine Riveter: Juan F Dominguez MD RBC (U) [#/Vol] 0 TO 2 Normal 0-4 [facility] Comment on above: Result Comment: Refe rence range defined for non-centrifuged specimen. Performed By: #### D ALEXIS SCHULZ, ETHANICAO #### [address] [address] Machine Riveter: Juan F Dominguez MD WBC (U) [#/Vol] 2 TO 5 Normal 0-5 [facility] Comment on above: Performed By: #### D ALEXIS SCHULZ, UMTRACIEO #### [address] [address] Machine Riveter: Juan F Dominguez MD CBC with Diffon 12-21-2019 Abs. Basophil <0.03 Normal 0.00-0.20 [facility] Comment on above: Performed By: #### C MPX, GLYHGB, LIPR, LACTIC, CDP #### [address] [address] Machine Riveter: Juan F Dominguez MD Abs.Imm.Granulocyte <0.03 Normal 0.00-0.30 [facility] Comment on above: Performed By: #### C MPX, GLYHGB, LIPR, LACTIC, CDP #### [address] [address] Machine Riveter: Juan F Dominguez MD Abs.Neutrophil (Seg) 2.41 k/uL Normal 1.50-8.10 [facility] Comment on above: Performed By: #### C MPX, GLYHGB, LIPR, LACTIC, CDP #### [address] [address] Machine Riveter: Juan F Dominguez MD Auto Diff Performed NOT REPORTED Normal [facility] Comment on above: Performed By: #### C MPX, GLYHGB, LIPR, LACTIC, CDP #### [address] [address] Machine Riveter: Juan F Dominguez MD Basophils/100 WBC (Bld) 0 % Normal 0-2 [facility] Comment on above: Performed By: #### C MPX, GLYHGB, LIPR, LACTIC, CDP #### [facility] [employer] [address] [place] [address] 73983 Machine Riveter: Juan F Dominguez MD Eosinophils (Bld) [#/Vol] 0.08 10*3/uL Normal 0.00-0.44 [facility] Comment on above: Performed By: #### C MPX, GLYHGB, LIPR, LACTIC, CDP #### [address] [address] Machine Riveter: Juan F Dominguez MD Eosinophils/100 WBC (Bld) 2 % Normal 1-4 [facility] Comment on above: Performed By: #### C MPX, GLYHGB, LIPR, LACTIC, CDP #### [facility] [employer] [address] [place] [address] Machine Riveter: Juan F Dominguez MD Erythrocyte distribution width (RBC) [Ratio] 11.9 % Normal 11.8-14.4 [facility] Comment on above: Performed By: #### C MPX, GLYHGB, LIPR, LACTIC, CDP #### [facility] [employer] [address] [place] [address] Machine Riveter: Juan F Dominguez MD Hematocrit (Bld) [Volume fraction] 38.8 % Low 40.7-50.3 [facility] Comment on above: Performed By: #### C MPX, GLYHGB, LIPR, LACTIC, CDP #### [facility] [employer] [address] [place] [address] Machine Riveter: Juan F Dominguez MD Hemoglobin (Bld) [Mass/Vol] 13.6 g/dL Normal 13.0-17.0 [facility] Comment on above: Performed By: #### C MPX, GLYHGB, LIPR, LACTIC, CDP #### [address] [address] Machine Riveter: Juan F Dominguez MD Immature granulocytes (Bld) [#/Vol] 0 % Normal 0 [facility] Comment on above: Performed By: #### C MPX, GLYHGB, LIPR, LACTIC, CDP #### [address] [address] Machine Riveter: Juan F Dominguez MD Lymphocytes (Bld) [#/Vol] 1.11 10*3/uL Normal 1.10-3.70 [facility] Comment on above: Performed By: #### C MPX, GLYHGB, LIPR, LACTIC, CDP #### [address] [address] Machine Riveter: Juan F Dominguez MD Lymphocytes/100 WBC (Bld) 28 % Normal 24-43 [facility] Comment on above: Performed By: #### C MPX, GLYHGB, LIPR, LACTIC, CDP #### [address] [address] Machine Riveter: Juan F Dominguez MD MCH (RBC) [Entitic mass] 35.8 pg High 25.2-33.5 [facility] Comment on above: Performed By: #### C MPX, GLYHGB, LIPR, LACTIC, CDP #### [address] [address] Machine Riveter: Juan F Dominguez MD MCHC (RBC) [Mass/Vol] 35.1 g/dL High 28.4-34.8 [facility] Comment on above: Performed By: #### C MPX, GLYHGB, LIPR, LACTIC, CDP #### [address] [address] Machine Riveter: Juan F Dominguez MD MCV (RBC) [Entitic vol] 102.1 fL Normal 82.6-102.9 [facility] Comment on above: Performed By: #### C MPX, GLYHGB, LIPR, LACTIC, CDP #### [address] [address] Machine Riveter: Juan F Dominguez MD Monocytes (Bld) [#/Vol] 0.41 10*3/uL Normal 0.10-1.20 [facility] Comment on above: Performed By: #### C MPX, GLYHGB, LIPR, LACTIC, CDP #### [address] [address] Machine Riveter: Juan F Dominguez MD Monocytes/100 WBC (Bld) 10 % Normal 3-12 [facility] Comment on above: Performed By: #### C MPX, GLYHGB, LIPR, LACTIC, CDP #### [address] [address] Machine Riveter: Juan F Dominguez MD Neutrophil (Seg) 60 % Normal 36-65 [facility] Comment on above: Performed By: #### C MPX, GLYHGB, LIPR, LACTIC, CDP #### [address] [address] Machine Riveter: Juan F Dominguez MD NRBC Automated 0.0 per 100 WBC Normal 0.0 [facility] Comment on above: Performed By: #### C MPX, GLYHGB, LIPR, LACTIC, CDP #### [address] [address] Machine Riveter: Juan F Dominguez MD Platelet mean volume (Bld) [Entitic vol] 8.2 fL Normal 8.1-13.5 [facility] Comment on above: Performed By: #### C MPX, GLYHGB, LIPR, LACTIC, CDP #### [address] [address] Machine Riveter: Juan F Dominguez MD Platelets (Bld) [#/Vol] NOT REPORTED Normal [facility] Comment on above: Performed By: #### C MPX, GLYHGB, LIPR, LACTIC, CDP #### [address] [address] Machine Riveter: Juan F Dominguez MD Platelets (Bld) [#/Vol] 200 10*3/uL Normal 138-453 [facility] Comment on above: Performed By: #### C MPX, GLYHGB, LIPR, LACTIC, CDP #### [address] [address] Machine Riveter: Juan F Dominguez MD RBC (Bld) [#/Vol] 3.80 10*6/uL Low 4.21-5.77 [facility] Comment on above: Performed By: #### C MPX, GLYHGB, LIPR, LACTIC, CDP #### [address] [address] Machine Riveter: Juan F Dominguez MD RBC morphology finding Nom (Bld) NOT REPORTED Normal [facility] Comment on above: Performed By: #### C MPX, GLYHGB, LIPR, LACTIC, CDP #### [address] [address] Machine Riveter: Juan F Dominguez MD WBC (Bld) [#/Vol] 4.0 10*3/uL Normal 3.5-11.3 [facility] Comment on above: Performed By: #### C MPX, GLYHGB, LIPR, LACTIC, CDP #### [address] [address] Machine Riveter: Juan F Dominguez MD WBC Morphology NOT REPORTED Normal [facility] Comment on above: Performed By: #### C MPX, GLYHGB, LIPR, LACTIC, CDP #### [facility] [employer] [address] [place] [address] Machine Riveter: Juan F Dmoinguez MD Comp Metabolic Pr/rfx MGon 0 12-21-2019 (cont.) Normal [facility] Comment on above: Result Comment: Aver age GFR for 70 or more years old: 75 mL/min/1.73sq m Chronic Kidney Disease: <60 mL/min/1.73sq m Kidney failure: <15 mL/min/1.73sq m eGFR calculated using average adult body mass. Additional eGFR calculator available at: http://www.doubleTwist/multiple_crcl_2012.htm Performed By: #### C MPX, GLYHGB, LIPR, LACTIC, CDP #### [address] [address] Machine Riveter: Juan F Dominguez MD Albumin [Mass/Vol] 3.9 g/dL Normal 3.5-5.2 [facility] Comment on above: Performed By: #### C MPX, GLYHGB, LIPR, LACTIC, CDP #### [address] [address] Machine Riveter: Juan F Dominguez MD Albumin/Globulin [Mass ratio] 1.2 {ratio} Normal 1.0-2.5 [facility] Comment on above: Performed By: #### C MPX, GLYHGB, LIPR, LACTIC, CDP #### [address] [address] Machine Riveter: Juan F Dominguez MD Alkaline Phos 80 U/L Normal 40-129 [facility] Comment on above: Performed By: #### C MPX, GLYHGB, LIPR, LACTIC, CDP #### [facility] [employer] [address] [place] [address] Machine Riveter: Juan F Dominguez MD ALT [Catalytic activity/Vol] 22 U/L Normal 5-41 [facility] Comment on above: Performed By: #### C MPX, GLYHGB, LIPR, LACTIC, CDP #### [address] [address] Machine Riveter: Juan F Dominguez MD Anion gap [Moles/Vol] 15 mmol/L Normal 9-17 [facility] Comment on above: Performed By: #### C MPX, GLYHGB, LIPR, LACTIC, CDP #### [address] [address] Machine Riveter: Juan F Dominguez MD Bilirubin Ql (U) 0.74 mg/dL Normal 0.3-1.2 [facility] Comment on above: Performed By: #### C MPX, GLYHGB, LIPR, LACTIC, CDP #### [address] [address] Machine Riveter: Juan F Dominguez MD BUN/CRE Ratio NOT REPORTED Normal - [facility] Comment on above: Performed By: #### C MPX, GLYHGB, LIPR, LACTIC, CDP #### [address] [address] Machine Riveter: Juan F Dominguez MD Calcium [Mass/Vol] 9.5 mg/dL Normal 8.6-10.4 [facility] Comment on above: Performed By: #### C MPX, GLYHGB, LIPR, LACTIC, CDP #### [address] [address] Machine Riveter: Juan F Dominguez MD Chloride [Moles/Vol] 99 mmol/L Normal 98-107 [facility] Comment on above: Performed By: #### C MPX, GLYHGB, LIPR, LACTIC, CDP #### [address] [address] Machine Riveter: Juan F Dominguez MD CO2 [Moles/Vol] 20 mmol/L Normal 20-31 [facility] Comment on above: Performed By: #### C MPX, GLYHGB, LIPR, LACTIC, CDP #### [address] [address] Machine Riveter: Juan F Dominguez MD Creatinine [Mass/Vol] 0.77 mg/dL Normal 0.70-1.20 [facility] Comment on above: Performed By: #### C MPX, GLYHGB, LIPR, LACTIC, CDP #### [address] [address] Machine Riveter: Juan F Dominguez MD GFR, Amer >60 Normal >60 [facility] Comment on above: Performed By: #### C MPX, GLYHGB, LIPR, LACTIC, CDP #### [address] [address] Machine Riveter: Juan F Dominguez MD GFR,non Amer >60 Normal >60 [facility] Comment on above: Performed By: #### C MPX, GLYHGB, LIPR, LACTIC, CDP #### [address] [address] Machine Riveter: Juan F Dominguez MD Glucose [Mass/Vol] 86 mg/dL Normal 70-99 [facility] Comment on above: Performed By: #### C MPX, GLYHGB, LIPR, LACTIC, CDP #### [address] [address] Machine Riveter: Juan F Dominguez MD Potassium [Moles/Vol] 4.2 mmol/L Normal 3.7-5.3 [facility] Comment on above: Performed By: #### C MPX, GLYHGB, LIPR, LACTIC, CDP #### [address] [address] Machine Riveter: Juan F Dominguez MD Protein [Mass/Vol] 7.2 g/dL Normal 6.4-8.3 [facility] Comment on above: Performed By: #### C MPX, GLYHGB, LIPR, LACTIC, CDP #### [facility] [address] [place] [address] Machine Riveter: Juan F Dominguez MD Sodium [Moles/Vol] 134 mmol/L Low 135-144 [facility] Comment on above: Performed By: #### C MPX, GLYHGB, LIPR, LACTIC, CDP #### [facility] [address] [place] [address] Machine Riveter: Juan F Dominguez MD Staging: NOT REPORTED Normal [facility] Comment on above: Performed By: #### C MPX, GLYHGB, LIPR, LACTIC, CDP #### [facility] [address] [place] [address] Machine Riveter: Juan F Dominguez MD Urea nitrogen [Mass/Vol] 16 mg/dL Normal 8-23 [facility] Comment on above: Performed By: #### C MPX, GLYHGB, LIPR, LACTIC, CDP #### [facility] [address] [place] [address] Machine Riveter: Juan F Dominguez MD Drug Scr, Abuse, Uron 2019 Buprenorphrine, Ur NOT REPORTED Normal NEG [facility] Comment on above: Performed By: #### Artem AU UA, UMICAO #### [facility] [address] [place] [address] Machine Riveter: Juan F Dominguez MD MDMA, Urine NOT REPORTED Normal NEG [facility] Comment on above: Performed By: #### D AU UA, UMICAO #### [facility] [address] [place] [address] Machine Riveter: Juan F Dominguez MD Methamphetamine, Ur NOT REPORTED Normal NEG [facility] Comment on above: Performed By: #### D AU UA, UMICAO #### [facility] [address] [place] [address], [place] [address] Machine Riveter: Juan F Dominguez MD Propoxyphene,Urine NOT REPORTED Normal NEG [facility] Comment on above: Performed By: #### Artem SCHULZ UA, UMICAO #### [facility] [address] [place] [address] Machine Riveter: Juan F Dominguez MD Tricyclic antidepressants Screen Ql (U) NOT REPORTED Normal NEG [facility] Comment on above: Performed By: #### D ZEUS UA, UMICAO #### [facility] [address] [place] [address] Machine Riveter: Juan F Dominguez MD Lactic Acidon 12-21-2019 Lactate [Moles/Vol] NOT REPORTED Normal [facility] Comment on above: Performed By: #### ALEXIS MIRANDA, UMICAO #### [facility] [address] [place] [address] Machine Riveter: Juan F Dominguez MD Lipid Profileon 12-21-2019 Cholesterol in VLDL [Mass/Vol] NOT REPORTED Normal 10-23 [facility] Comment on above: Performed By: #### Artem SCHULZ UA, UMICAO #### [facility] [address] [place] [address] Machine Riveter: Juan F Dominguez MD Urinalysis, Routineon 2019 Comment NOT REPORTED Normal [facility] Comment on above: Performed By: #### Artem SCHULZ UA, UMICAO #### [facility] [address] [place] [address] Machine Riveter: Juan F Dominguez MD Urinalysis,Microon 0 Amorphous sediment LM Ql (Urine sed) NOT REPORTED Normal NONE [facility] Comment on above: Performed By: #### Artem SCHULZ UA, UMICAO #### [facility] [address] [place] [address] Machine Riveter: Juan F Dominguez MD Bacteria LM.HPF (Urine sed) [#/Area] NOT REPORTED Normal NONE [facility] Comment on above: Performed By: #### D AU, UA, UMICAO #### [facility] [address] [place] [address] Machine Riveter: Juan F Dominguez MD Crystals LM Nom (Urine sed) NOT REPORTED Normal NONE [facility] Comment on above: Performed By: #### D AU, UA, UMICAO #### [facility] [address] [place] [address] Machine Riveter: Juan F Dominguez MD Epithelial, Renal NOT REPORTED Normal 0 [facility] Comment on above: Performed By: #### D AU, UA, UMICAO #### [facility] [address] [place] [address] Machine Riveter: Juan F Dominguez MD Mucus Strands NOT REPORTED Normal NONE [facility] Comment on above: Performed By: #### D AU, UA, UMICAO #### [facility] [address] [place] [address] Machine Riveter: Juan F Dominguez MD Other Observations NOT REPORTED Normal NREQ [facility] Comment on above: Performed By: #### D AU, UA, UMICAO #### [facility] [address] [place] [address] Machine Riveter: Juan F Dominguez MD Trichomonas NOT REPORTED Normal NONE [facility] Comment on above: Performed By: #### D AU, UA, UMICAO #### [facility] [address] [place] [address] Machine Riveter: Juan F Dominguez MD Yeast LM Ql (Urine sed) NOT REPORTED Normal NONE [facility] Comment on above: Performed By: #### D AU, UA, UMICAO #### [facility] [address] [place] [id number] Machine Riveter: Juan F Dominguez MD Social History Date Type Detail Facility Start: 08-13-2023 End: 10-22-2023 Alcohol intake Lifetime non-drinker (finding) [facility] Work Phone: Start: 06-15-2022 End: 08-22-2023 Occasional caffeine consumption Occasional caffeine consumption [facility] Comment on above: Quit 1960; Tea; Start: 06-15-2022 End: 08-22-2023 Sex Assigned At Male [facility] [facility] Start: 08-22-2023 Alcohol intake Ex-drinker (finding) [facility] Work Phone: Start: 08-12-2023 End: 12-28-2023 Exposure to SARS-CoV-2 (event) Not sure [facility] Start: 08-29-2021 End: 12-03-2023 Tobacco smoking status Never smoked tobacco (finding) [facility] Start: 10-13-2020 End: 10-22-2023 Tobacco use and exposure Never used [facility] Start: 02-04-2020 End: 02-27-2020 Tobacco smoking status NHIS Former smoker [facility] Start: 1945 Sex Assigned At Not on file [employer] Start: 1945 Sex Assigned At Male F [facility] Tobacco smoking status Never [facility] End: 09-24-1959 History of tobacco use Current smoker [facility] Work Phone: End: 09-24-1959 History of tobacco use Cigarette Smoker [facility] Work Phone: Vital Signs Date Time Vital Sign Value Performing Clinician Facility 02-21-2024 14:59-0400 Body height 175.26 cm DO Sam Cooney Work Phone: [facility] 02-21-2024 14:59-0400 Body mass index (BMI) [Ratio] 25.4 kg/m2 DO Sam Westlake Work Phone: [facility] 02-21-2024 14:59-0400 Body temperature 97.7 [degF] DO Sam Westlake Work Phone: [facility] 02-21-2024 14:59-0400 Body weight 78.01 kg DO Sam Westlake Work Phone: [facility] 02-21-2024 14:59-0400 Diastolic blood pressure 58 mm[Hg] DO Sam Westlake Work Phone: [facility] 02-21-2024 14:59-0400 Heart rate 74 /min DO Sam Westlake Work Phone: [facility] 02-21-2024 14:59-0400 Respiratory rate 202 /min DO Sam Westlake Work Phone: [facility] 02-21-2024 14:59-0400 SaO2% (BldA) [Mass fraction] 100 % DO Sam Westlake Work Phone: [facility] 02-21-2024 14:59-0400 Systolic blood pressure 93 mm[Hg] DO Sam Westlake Work Phone: [facility] 12-03-2023 15:25-0400 Blood Pressure Location Trung FERGUSON [facility] 12-03-2023 15:25-0400 Diastolic blood pressure 74 mm[Hg] Trung FERGUSON [facility] 12-03-2023 15:25-0400 Heart rate 76 /min Trung FERGUSON [facility] 12-03-2023 15:25-0400 Respiratory rate 16 /min Trung FERGUSON [facility] 12-03-2023 15:25-0400 Systolic blood pressure 137 mm[Hg] Trung FERGUSON [facility] 10-22-2023 11:54-0500 Body height 175.3 cm Za Hernández MD Work Phone: [facility] 10-22-2023 11:54-0500 Body mass index (BMI) [Ratio] 27.17 kg/m2 Za Hernández MD Work Phone: [facility] 10-22-2023 11:54-0500 Body weight 83.46 kg Za Hernández MD Work Phone: [facility] 10-22-2023 11:54-0500 Diastolic blood pressure 72 mm[Hg] Za Hernández MD Work Phone: [facility] 10-22-2023 11:54-0500 Heart rate 56 /min Za Hernández MD Work Phone: [facility] 10-22-2023 11:54-0500 Systolic blood pressure 124 mm[Hg] Za Hernández MD Work Phone: [facility] 08-28-2023 12:20-0500 Diastolic blood pressure 78 mm[Hg] Ryan Cobb MD Work Phone: [facility] 08-28-2023 12:20-0500 Heart rate 60 /min Ryan Cobb MD Work Phone: [facility] 08-28-2023 12:20-0500 Respiratory rate 14 /min Ryan Cobb MD Work Phone: [facility] 08-28-2023 12:20-0500 SaO2% (BldA) [Mass fraction] 98 % Ryan Cobb MD Work Phone: [facility] 08-28-2023 12:20-0500 Systolic blood pressure 137 mm[Hg] Ryan Cobb MD Work Phone: [facility] 08-22-2023 08:48-0500 Body height 175.3 cm Ryan Cobb MD Work Phone: [facility] 08-22-2023 08:48-0500 Body mass index (BMI) [Ratio] 25.84 kg/m2 Ryan Cobb MD Work Phone: [facility] 08-22-2023 08:48-0500 Body temperature 96.01 [degF] Ryan Cobb MD Work Phone: [facility] 08-22-2023 08:48-0500 Body weight 79.38 kg Ryan Cobb MD Work Phone: [facility] 08-22-2023 08:48-0500 Diastolic blood pressure 79 mm[Hg] Ryan Cobb MD Work Phone: [facility] 08-22-2023 08:48-0500 Heart rate 60 /min Ryan Cobb MD Work Phone: [facility] 08-22-2023 08:48-0500 Respiratory rate 16 /min Ryan Cobb MD Work Phone: [facility] 08-22-2023 08:48-0500 SaO2% (BldA) [Mass fraction] 96 % Ryan Cobb MD Work Phone: [facility] 08-22-2023 08:48-0500 Systolic blood pressure 151 mm[Hg] Ryan Cobb MD Work Phone: [facility] 07-09-2023 11:04-0400 Diastolic blood pressure 78 mm[Hg] Trung FERGUSON [facility] 07-09-2023 11:04-0400 Heart rate 68 /min Trung FERGUSON [facility] 07-09-2023 11:04-0400 Respiratory rate 16 /min Trung FERGUSON [facility] 07-09-2023 11:04-0400 Systolic blood pressure 132 mm[Hg] Trung FERGUSON [facility] 06-11-2023 11:27-0400 Diastolic blood pressure 60 mm[Hg] Sam Cooney Work Phone: [facility] DO Work Phone: 06-11-2023 11:27-0400 Systolic blood pressure 118 mm[Hg] Sam Cooney Work Phone: [facility] DO Work Phone: 06-11-2023 10:51-0400 Body height 175.26 cm Sam Cooney Work Phone: [facility] DO Work Phone: 06-11-2023 10:51-0400 Body mass index (BMI) [Ratio] 26.29 kg/m2 Sam Cooney Work Phone: [facility] DO Work Phone: 06-11-2023 10:51-0400 Body surface area Derived from formula 1.97 m2 Sam Cooney Work Phone: [facility] DO Work Phone: 06-11-2023 10:51-0400 Body weight 80.74 kg Sam Cooney Work Phone: [facility] DO Work Phone: 06-11-2023 10:51-0400 Diastolic blood pressure 76 mm[Hg] Sam Cooney Work Phone: [facility] DO Work Phone: 06-11-2023 10:51-0400 Heart rate 66 /min [place] E Westlake Work Phone: [facility] DO Work Phone: 06-11-2023 10:51-0400 Systolic blood pressure 128 mm[Hg] Sam E Westlake Work Phone: [facility] DO Work Phone: 04-03-2023 09:05-0400 Blood Pressure Location CHARLOTTE RITESH [facility] 04-03-2023 09:05-0400 Diastolic blood pressure 56 mm[Hg] CHARLOTTE RITESH [facility] 04-03-2023 09:05-0400 Heart rate 58 /min CHARLOTTE RITESH [facility] 04-03-2023 09:05-0400 Respiratory rate 16 /min CHARLOTTE RITESH [facility] 04-03-2023 09:05-0400 Systolic blood pressure 96 mm[Hg] CHARLOTTE RITESH [facility] 02-26-2023 12:14-0400 Diastolic blood pressure 40 mm[Hg] [place] E Westlake Work Phone: [facility] DO Work Phone: 02-26-2023 12:14-0400 Systolic blood pressure 82 mm[Hg] [place] E Westlake Work Phone: [facility] DO Work Phone: 02-26-2023 12:14-0400 50 1 Sam E Westlake Work Phone: [facility] DO Work Phone: Comment on above: [facility] 02-26-2023 11:37-0400 Body height 175.26 cm Sam Cooney Work Phone: [facility] DO Work Phone: 02-26-2023 11:37-0400 Body mass index (BMI) [Ratio] 25.93 kg/m2 Sam Meneses Westlake Work Phone: [facility] DO Work Phone: 02-26-2023 11:37-0400 Body surface area Derived from formula 1.95 m2 [place] Cooney Work Phone: [facility] DO Work Phone: 02-26-2023 11:37-0400 Body weight 79.65 kg Sam Meneses Westlake Work Phone: [facility] DO Work Phone: 02-26-2023 11:37-0400 Diastolic blood pressure 52 mm[Hg] Sam Meneses Westlake Work Phone: [facility] DO Work Phone: 02-26-2023 11:37-0400 Heart rate 56 /min Sam Meneses Westlake Work Phone: [facility] DO Work Phone: 02-26-2023 11:37-0400 Systolic blood pressure 98 mm[Hg] Sam Gideon Westlake Work Phone: [facility] DO Work Phone: 01-23-2023 14:12-0400 Blood Pressure Location CHARLOTTE BAKER [facility] 01-23-2023 14:12-0400 Diastolic blood pressure 76 mm[Hg] CHARLOTTE BAKER [facility] 01-23-2023 14:12-0400 Heart rate 78 /min CHARLOTTE BAKER [facility] 01-23-2023 14:12-0400 Respiratory rate 16 /min CHARLOTTE RITESH [facility] 01-23-2023 14:12-0400 Systolic blood pressure 130 mm[Hg] CHARLOTTE RITESH [facility] 01-01-2023 11:45-0400 Blood Pressure Location Trung FERGUSON [facility] 01-01-2023 11:45-0400 Diastolic blood pressure 88 mm[Hg] Trung FERGUSON [facility] 01-01-2023 11:45-0400 Heart rate 67 /min Trung FERGUSON [facility] 01-01-2023 11:45-0400 Respiratory rate 16 /min Trung FERGUSON [facility] 01-01-2023 11:45-0400 Systolic blood pressure 135 mm[Hg] Trung FERGUSON [facility] 11-03-2022 13:02-0500 Blood Pressure Location Trung FERGUSON [facility] 11-03-2022 13:02-0500 Diastolic blood pressure 74 mm[Hg] Trung FERGUSON [facility] 11-03-2022 13:02-0500 Heart rate 68 /min Trung FERGUSON [facility] 11-03-2022 13:02-0500 Respiratory rate 16 /min Trung FERGUSON [facility] 11-03-2022 13:02-0500 Systolic blood pressure 128 mm[Hg] Trung FERGUSON [facility] 10-09-2022 13:22-0500 Diastolic blood pressure 74 mm[Hg] Sam Cooney Work Phone: [facility] DO Work Phone: 10-09-2022 13:22-0500 Systolic blood pressure 136 mm[Hg] Sam Meneses Westlake Work Phone: [facility] DO Work Phone: 10-09-2022 13:05-0500 Body height 175.26 cm Sam Cooney Work Phone: [facility] DO Work Phone: 10-09-2022 13:05-0500 Body mass index (BMI) [Ratio] 26.58 kg/m2 Sam Meneses Westlake Work Phone: [facility] DO Work Phone: 10-09-2022 13:05-0500 Body surface area Derived from formula 1.98 m2 Sam Meneses Westlake Work Phone: [facility] DO Work Phone: 10-09-2022 13:05-0500 Body weight 81.65 kg Sam Meenses Westlake Work Phone: [facility] DO Work Phone: 10-09-2022 13:05-0500 Diastolic blood pressure 72 mm[Hg] Sam Meneses Westlake Work Phone: [facility] DO Work Phone: 10-09-2022 13:05-0500 Heart rate 84 /min Sam Meneses Westlake Work Phone: [facility] DO Work Phone: 10-09-2022 13:05-0500 Systolic blood pressure 142 mm[Hg] Sam Meneses Westlake Work Phone: [facility] DO Work Phone: 10-02-2022 15:48-0500 Body height 175.26 cm Sam Meneses Westlake Work Phone: [facility] DO Work Phone: 10-02-2022 15:48-0500 Body mass index (BMI) [Ratio] 26.43 kg/m2 Sam Meneses Westlake Work Phone: [facility] DO Work Phone: 10-02-2022 15:48-0500 Body surface area Derived from formula 1.97 m2 Sam Meneses Westlake Work Phone: [facility] DO Work Phone: 10-02-2022 15:48-0500 Body weight 81.19 kg Sam Meneses Westlake Work Phone: [facility] DO Work Phone: 10-02-2022 15:48-0500 Diastolic blood pressure 82 mm[Hg] Sam Meneses Westlake Work Phone: [facility] DO Work Phone: 10-02-2022 15:48-0500 Heart rate 68 /min Sam Meneses Westlake Work Phone: [facility] DO Work Phone: 10-02-2022 15:48-0500 Systolic blood pressure 134 mm[Hg] aSm Meneses Westlake Work Phone: [facility] DO Work Phone: 10-02-2022 11:32-0500 Blood Pressure Location Trung FERGUSON [facility] 10-02-2022 11:32-0500 Diastolic blood pressure 75 mm[Hg] Trung FERGUSON [facility] 10-02-2022 11:32-0500 Heart rate 70 /min Trung FERGUSON [facility] 10-02-2022 11:32-0500 Respiratory rate 16 /min Trung FERGUSON [facility] 10-02-2022 11:32-0500 Systolic blood pressure 134 mm[Hg] Trung FERGUSON [facility] 09-11-2022 13:07-0500 Diastolic blood pressure 84 mm[Hg] Sam Meneses Westlake Work Phone: [facility] DO Work Phone: 09-11-2022 13:07-0500 Diastolic blood pressure 92 mm[Hg] Sam Meneses Westlake Work Phone: [facility] DO Work Phone: 09-11-2022 13:07-0500 Systolic blood pressure 144 mm[Hg] Sam E Westlake Work Phone: [facility] DO Work Phone: 09-11-2022 13:07-0500 Systolic blood pressure 148 mm[Hg] Sam E Westlake Work Phone: [facility] DO Work Phone: 09-11-2022 13:00-0500 Body height 175.26 cm [place] E Westlake Work Phone: [facility] DO Work Phone: 09-11-2022 13:00-0500 Body mass index (BMI) [Ratio] 25.99 kg/m2 Sam Meneses Westlake Work Phone: [facility] DO Work Phone: 09-11-2022 13:00-0500 Body surface area Derived from formula 1.96 m2 Sam Meneses Westlake Work Phone: [facility] DO Work Phone: 09-11-2022 13:00-0500 Body weight 79.83 kg Sam Meneses Westlake Work Phone: [facility] DO Work Phone: 09-11-2022 13:00-0500 Heart rate 62 /min Sam Meneses Westlake Work Phone: [facility] DO Work Phone: 08-28-2022 13:16-0500 Body height 175.26 cm Sam Meneses Westlake Work Phone: [facility] DO Work Phone: 08-28-2022 13:16-0500 Body mass index (BMI) [Ratio] 25.84 kg/m2 Sam Meneses Westlake Work Phone: [facility] DO Work Phone: 08-28-2022 13:16-0500 Body surface area Derived from formula 1.95 m2 Sam Meneses Westlake Work Phone: [facility] DO Work Phone: 08-28-2022 13:16-0500 Body weight 79.38 kg Sam Meneses Westlake Work Phone: [facility] DO Work Phone: 08-28-2022 13:16-0500 Diastolic blood pressure 94 mm[Hg] Sam Meneses Westlake Work Phone: [facility] DO Work Phone: 08-28-2022 13:16-0500 Heart rate 88 /min Sam Meneses Westlake Work Phone: [facility] DO Work Phone: 08-28-2022 13:16-0500 Systolic blood pressure 152 mm[Hg] Sam Meneses Westlake Work Phone: [facility] DO Work Phone: 06-15-2022 10:12-0400 Body height 175.26 cm Sam Meneses Westlake Work Phone: [facility] DO Work Phone: 06-15-2022 10:12-0400 Body mass index (BMI) [Ratio] 24.81 kg/m2 Sam Meneses Westlake Work Phone: [facility] DO Work Phone: 06-15-2022 10:12-0400 Body surface area Derived from formula 1.92 m2 Sam Meneses Westlake Work Phone: [facility] DO Work Phone: 06-15-2022 10:12-0400 Body weight 76.2 kg Sam Meneses Westlake Work Phone: [facility] DO Work Phone: 06-15-2022 10:12-0400 Diastolic blood pressure 82 mm[Hg] Sam Meneses Westlake Work Phone: [facility] DO Work Phone: 06-15-2022 10:12-0400 Heart rate 64 /min [place] E Westlake Work Phone: [facility] DO Work Phone: 06-15-2022 10:12-0400 Systolic blood pressure 160 mm[Hg] Sam Cooney Work Phone: [facility] DO Work Phone: 06-15-2022 10:12-0400 4 1 Sam Cooney Work Phone: [facility] DO Work Phone: Comment on above: PHQ-9 TS 04-24-2022 11:18-0400 Blood Pressure Location Trung FERGUSON [facility] 04-24-2022 11:18-0400 Diastolic blood pressure 86 mm[Hg] Trung FERGUSON [facility] 04-24-2022 11:18-0400 Heart rate 74 /min Trungemily FERGUSON [facility] 04-24-2022 11:18-0400 Respiratory rate 16 /min Trung FERGUSON [facility] 04-24-2022 11:18-0400 Systolic blood pressure 134 mm[Hg] Trung FERGUSON [facility] 01-23-2022 12:57-0400 Blood Pressure Location Trungemily FERGUSON [facility] 01-23-2022 12:57-0400 Diastolic blood pressure 87 mm[Hg] Trung FERGUSON [facility] 01-23-2022 12:57-0400 Heart rate 70 /min Trung FERGUSON [facility] 01-23-2022 12:57-0400 Respiratory rate 16 /min Trung FERGUSON [facility] 01-23-2022 12:57-0400 Systolic blood pressure 139 mm[Hg] Trung FERGUSON [facility] 08-31-2021 13:24-0500 Body height 175.26 cm Sam Cooney Work Phone: [facility] DO Work Phone: 08-31-2021 13:24-0500 Body mass index (BMI) [Ratio] 27.02 kg/m2 Sam Cooney Work Phone: [facility] DO Work Phone: 08-31-2021 13:24-0500 Body surface area Derived from formula 1.99 m2 Sam Cooney Work Phone: [facility] DO Work Phone: 08-31-2021 13:24-0500 Body weight 83.01 kg Sam Cooney Work Phone: [facility] DO Work Phone: 08-31-2021 13:24-0500 Diastolic blood pressure 88 mm[Hg] Sam Cooney Work Phone: [facility] DO Work Phone: 08-31-2021 13:24-0500 Heart rate 74 /min Sam Meneses Westlake Work Phone: [facility] DO Work Phone: 08-31-2021 13:24-0500 Systolic blood pressure 142 mm[Hg] Sam Meneses Westlake Work Phone: [facility] DO Work Phone: 08-03-2021 09:57-0500 Body height 175.26 cm Sam Meneses Westlake Work Phone: [facility] DO Work Phone: 08-03-2021 09:57-0500 Body mass index (BMI) [Ratio] 26.29 kg/m2 Sam Meneses Westlake Work Phone: [facility] DO Work Phone: 08-03-2021 09:57-0500 Body surface area Derived from formula 1.97 m2 Sam Meneses Westlake Work Phone: [facility] DO Work Phone: 08-03-2021 09:57-0500 Body weight 80.74 kg Sam Meneses Westlake Work Phone: [facility] DO Work Phone: 08-03-2021 09:57-0500 Diastolic blood pressure 90 mm[Hg] Sam Meneses Westlake Work Phone: [facility] DO Work Phone: 08-03-2021 09:57-0500 Heart rate 66 /min Sam Meneses Westlake Work Phone: [facility] DO Work Phone: 08-03-2021 09:57-0500 Systolic blood pressure 170 mm[Hg] Sam Meneses Westlake Work Phone: [facility] [address] DO Work Phone: Functional Status Date Assessment Result Facility 12-03-2023 Functional Status N/A [facility] 07-09-2023 Functional Status N/A [facility] 04-03-2023 Functional Status N/A [facility] 01-23-2023 Functional Status N/A [facility] 01-01-2023 Functional Status N/A [facility] 11-03-2022 Functional Status N/A [facility] 10-02-2022 Functional Status N/A [facility] 06-15-2022 PHQ-9 [id number] In Re mission (0-4) [facility] 250 DO Work Phone: 04-24-2022 Functional Status N/A [facility] Clinical Notes 11-23-2019 to 12-03-2023 Za Hernández MD - 10/22/2023 11:45 AM ESTPatient InstructionsAdam Benedict MD - 08/28/2023 1:11 PM Rudy Felton [facility] - 08/28/2023 12:10 PM ESTDischarge [...] your health care provider. General instructions Take aqeg-ocz-lpknvhz and prescription medicines only as told by [...] provider. Document Revised: 05/30/2021 Document Reviewed: 05/30/2021 [employer] Patient Education 2022 [email or web address]. Follow Up Care 07/09/2023 11:46:47 With:MARTY BETANCOURT, Trung Frost, URL Address: [facility] [address] [place] [phone] When: Unknown Comments:6 mos (increase med dosage) [facility] 11-20-2023 Note Procedure Cancelatio n Documentation Entered On: 11/20/2023 10:21 EST Performed On: 11/20/2023 10:17 EST by Sahra Lizarraga RN Procedure Cancelation Documentation Surgery Procedure Cancelation : 11/20/2023 10:17 EST Surgery Procedure Cancel Reason : low hemoglobin/hematocrit. dr shaffer spoke with patient + pt's at length. pt instructed to contact primary care physician Sahra Lizarraga RN - 11/20/2023 10:17 EST [facility] 11-20-[address] Entered [...] risk situation (congregated living, hemodialysis, infusion clinic, longterm, assisted living, senior living, homeless penitentiary, etc.)? : No Sahra Lizarraga RN - [...] : 11/19/2023 12:00 EST Sahra Lizarraga RN 11/20/2023 10:00 EST Protocols Patient Safety Grid ID Band on and Verified : Yes Fall Risk Home Health Attendant : Yes Blood Band on and Verified : Yes Current H&P in Medical Record : Yes (Comment: 11/15/23 [Mary Ellen Price RN 11/15/2023 13:49 EST] ) Mary Ellen Price RN - 11/20/2023 9:50 EST Current ECG in Medical Record : Yes (Comment: 10/12/23 [Mary Ellen Price RN - 11/15/2023 13:49 EST] ) Basic [place] : Yes (Comment: 10/12/23 [Mary Ellen Price [...] : Living will, Medical durable power of commonwealth attorney Advance Directive Location : Family to bring in copy from home Advance Directive Additional Information : No Mary Ellen Price RN - 11/15/2023 14:17 EST Surgical Clipper Prep Surgery Clipper Prep : done in preop Sahra Lizarraga RN - 11/20/2023 9:50 EST [facility] 11-20-2023 Note SOCO Education Entere d [...] Education Dialysis Surgery - Hospital form # [id number] : Verbalizes understanding Mary Ellen Price RN [...] Price RN - 11/15/2023 13:49 EST [facility] 11-15-2023 Note Patient: NEIL WILCOX Age: [...] 500 mg = 1 tabs, PRN, ORAL, [id number] acetaminophen/butalbital/caffeine 325 mg-50 mg-40 mg oral tablet = Fioricet 1 tabs, PRN, ORAL, [id number] Aspirin EC 81 mg oral delayed release [...] 2 mg = 1 caps, PRN, ORAL, [id number] losartan 100 mg oral tablet 100 mg [...] strength, No tenderness, No swelling. Integumentary: Warm, [place]. Neurologic: Alert, Oriented. Cognition and Speech: Oriented, [...] and o (more content not included)... [facility] 10-22-2023 History of Present illness Narrative [...] due to atrial fibrillation, on anticoagulation. 10. [id number] at least 5. Has bled score 2 [...] redirect to the Timeline version of the [employer]. Wt Readings from Last 3 Encounters: [...] Daily atorvastatin (LIPITOR) 40 mg, oral, Daily lhnfbhwnsy-htxvmdv-pjzmyrio (Fiorinal) 50-325-40 mg capsule 1 capsule, oral, [...] Scribe Attestation By signing my name below, IHalie LPN, Scribe attest that this documentation has been prepared [...] discussion and plan. documented in this encounter [facility] Work Phone: 10-22-2023 Instructions Phuong [...] of your visit. documented in this encounter [facility] Work Phone: 10-12-2023 Note SOCO Lisa Jamese d On: 10/12/2023 10:13 EST Performed [...] Education Dialysis Surgery - Hospital form # [id number] : Needs further teaching Amy Hager RN [...] Amy Hager RN 10/12/2023 10:10 EST [facility] 08-28-2023 Hospital course Narrative Discharge Diagnosis Atrial fibrillation (CMS/HCC) Hospital Course S/p VINNIE closure Access: Dual [...] 40 mg tablet; Commonly known as: Lipitor glystozhwg-mwcuksewnkboh-ukhn 50-325-40 mg tablet cyanocobalamin 1,000 mcg tablet; [...] Center 09/20/2023 10:30 AM Za Hernández MD [id number] [place] Adam Benedict MD documented in this encounter [facility] Work Phone: 08-28-2023 History of Present illness Narrative Pharmacy Medication History Review Neil Wilcox is a 77 y.o. male admitted for Atrial fibrillation ([facility]). Pharmacy reviewed the patient's tzfsv-pr-egurjkzrk medications and allergies for accuracy. The list below reflects the updated DOCKING PILOT list. Comments regarding how patient may be [...] tablet (40 mg) by mouth once daily. tfxkvigdsy-tbrrqwslbrpyl-komm 50-325-40 mg tablet Past Week Spouse/Significant Other, [...] OARRS, and patient interview along with 08/22/23 vivien Cobb Below are additional concerns with the patient's DOCKING PILOT list. [facility] Transitions of Care Clinical Pharmacist Please reach out via [employer] Chat for questions, if no response call [employer] or [employer] [facility] documented in this encounter [facility] Work Phone: 08-28-2023 Note Formatting of this n ote might be different from the original. Sedation Plan ASA 2 Mallampati class: II. Risks, benefits, and alternatives discussed with patient. [facility] Work Phone: 08-28-2023 Miscellaneous Notes Sedation Plan ASA 2 Mallampati class: II. Risks, benefits, and alternatives discussed with patient. documented in this encounter [facility] Work Phone: 08-27-2023 Hospital Discharge instructions Lucas Pearce, CROP PICKER-PHYS ASSISTANT - 08/27/2023 12:20 PM EST Watchman Discharge [...] have any concerns, you may contact the Junior Accounting Clerk or if any of these symptoms become excessive, contact your associate of science in nursing or go to the emergency room. No [...] new concerning symptoms. documented in this encounter [facility] Work Phone: 07-09-2023 Hospital Discharge [...] urethra. Follow these instructions at home: Take yqqx-tkh-sktfbmy and prescription medicines only as told by [...] provider. Document Revised: 03/29/2022 Document Reviewed: 03/29/2022 [employer] Patient Education 2022 [email or web address]. Follow Up Care 01/01/2023 13:25:14 With:MARTY BETANCOURT, Trung Frost, JOSH Address: [facility] [address] , [place] [address]- When:Within 4 Month(s) [facility] [place] 04-03-2023 Hospital Discharge instructions Patient Education 04/03/2023 [...] provider. Document Revised: 01/19/2022 Document Reviewed: 01/19/2022 [employer] Patient Education 2022 [email or web address]. Follow Up Care 01/23/2023 14:39:57 With:RITESH ALTAMIRANO, CHARLOTTE Meneses, URL Address: [address] [facility] [place] [address] When: Unknown Comments:keep tobin w/ [facility] 02-22-2023 History of Present illness Narrative 77-year-old with history of atrial fibrillation, hypercoagulability related to atrial fibrillation, high UTO2IU4-IFFh score, most recently seen February 2023 and [...] Hypercoagulability due to atrial fibrillation, on anticoagulation.10. PYS6YL1-CCVi at least 5. Has bled score 2 [...] 50 mg p.o. daily and discontinue amlodipine. [facility] Work Phone: 01-23-2023 Hospital Discharge instructions [...] air conditioner or fan, if available. Apply dhwp-jwx-bsprpzq and prescription medicines only as told by [...] well after activity or exercise. Use a department chairperson on a cool setting to dry between [...] drying your skin and with medicines. Apply ubqg-elj-kcqexgn and prescription medicines only as told by [...] Document Reviewed: 06/26/2022 Elsevier Patient Education 2022 [employer] [facility] 01-01-2023 Hospital Discharge instructions Patient Education [...] reconstructed. Follow these instructions at home: Take cpzd-oxm-cmxesoz and prescription medicines only as told by [...] 10/06/2016 Document Revised: 04/23/2019 Document Reviewed: 04/23/2019 Else[employer] Patient Education 2020 [email or web address]. Follow Up Care 10/02/2022 12:40:38 With:MARTY BETANCOURT, Trung Frost, URL Address: [facility] [address] , [place] [address]- When: Unknown [facility] 11-03-2022 Hospital Discharge instructions Patient Education [...] reconstructed. Follow these instructions at home: Take mxjs-cxn-gsguxur and prescription medicines only as told by [...] 10/06/2016 Document Revised: 04/23/2019 Document Reviewed: 04/23/2019 [employer] Patient Education 2020 [email or web address]. Follow Up Care 11/03/2022 12:06:47 With:MARTY BETANCOURT, Trung Frost, URL Address: [address] [place] [address] When: Unknown [facility] [place] 10-02-2022 Hospital Discharge instructions Patient Education 10/02/2022 [...] fried and sweet foods. General instructions Take hoiz-zwp-tfdvqak and prescription medicines only as told by [...] 07/07/2010 Document Revised: 01/01/2020 Document Reviewed: 09/26/2018 [employer] Patient Education 2020 [email or web address]. Follow Up Care 07/24/2022 14:33:35 With:MARTY BETANCOURT, Trung Frost, URL Address: [facility] [address] [place] [phone] When:Within 3 Month(s) [facility] 09-24-2022 History of Present illness Narrative 77-year-old [...] Hypercoagulability due to atrial fibrillation, on anticoagulation.10. QXB1KH1-CQIi at least 5. Has bled score 2 [...] 3 months sooner if interval problems arise -[facility] 250 DO Work Phone: 05-25-2022 History [...] pressure and orthostatics5. Fall precautions were reiterated. [facility] [employer] DO Work Phone: 04-24-2022 Hospital Discharge instructions [...] nerve stimulation). For women, using a medical liaison to prevent urine leaks. This is a [...] right after experiencing incontinence. General instructions Take cbeb-tci-achvorl and prescription medicines only as told by [...] 10/18/2005 Document Revised: 09/20/2018 Document Reviewed: 12/20/2017 [employer] Patient Education 2020 [email or web address]. Follow Up Care 01/24/2022 09:45:35 With:MARTY BETANCOURT, JOSH Martin Address: [facility] [address] [place] [phone] When: Unknown Comments:w/ urodynamics [facility] [place] 01-23-2022 Hospital Discharge instructions Patient [...] urethra. Follow these instructions at home: Take mtvf-tob-qxzdjqu and prescription medicines only as told by [...] 09/10/2006 Document Revised: 08/05/2019 Document Reviewed: 10/15/2017 [employer] Patient Education 2020 [email or web address]. Follow Up Care 12/20/2021 10:58:17 With:MARTY BETANCOURT, JOSH Martin Address: [facility] [address] , [place] [address]- When: Unknown [facility] [place] 09-24-2021 History of Present illness Narrative [...] have much in the way of symptoms. [facility] 250 DO Work Phone: 11-23-2019 History of Present illness Narrative Mr. Wilcox is a 75-year-old male seen back today for follow-up on his implanted loop recorder. He was seen initially as a consult requested by neurology. He was admitted to [facility] in [place] in November 2019 with an acute stroke. [...] seems to be stable from cardiac perspective. [facility] 250 DO Work Phone: 11-23-2019 History of Present illness Narrative Patient is new to this provider. Per Dr. Reyes's prior notes:Mr. Wilcox is a 75-year-old male seen back today for follow-up on his implanted loop recorder. He was seen initially as a consult requested by neurology. He was admitted to [facility] in [place] in November 2019 with an acute stroke. [...] him in view of his BPH. [facility] 250 DO Work Phone: Chief complaint Narrative - Reported NEIL WILCOX is being seen for Discuss progress. [facility] 250 DO Work Phone: Evaluation + Plan note Future Appointments Appointment Date:01/24/2022 09:30:00 AM Scheduled Provider: Location:[facility] Appointment Type:Urology FT Appointment Date:09/04/2022 08:45:00 AM Scheduled Provider:Trung FERGUSON MD Location:[facility] Appointment Type:URO Office Visit [facility] Evaluation + Plan note Future Appointments Appointment Date:04/25/2022 12:15:00 PM Scheduled Provider: Location:[facility] Appointment Type:Urology CALL PAT FT Appointment Date:05/09/2022 11:00:00 AM Scheduled Provider: Location:[facility] Appointment Type:Urology FT Appointment Date:09/04/2022 08:45:00 AM Scheduled Provider:Trung FERUGSON MD [facility] Appointment Type:URO Office Visit [facility] Evaluation + Plan note Future Appointments Appointment Date:09/04/2022 08:45:00 AM Scheduled Provider:Trung FERGUSON MD Location:[facility] Appointment Type:URO Office Visit [facility] Evaluation + Plan note Future Appointments Appointment Date:09/29/2022 08:45:00 AM Scheduled Provider:Trung FERGUSON MD [facility] Appointment Type:URO Office Visit [facility] Evaluation + Plan note Future Appointments Appointment Date:01/01/2023 11:30:00 AM Scheduled Provider:Trung FERGUSON MD Location:[facility] Appointment Type:URO Office Visit [facility] Evaluation + Plan note Future Appointments Appointment Date:01/01/2023 11:30:00 AM Scheduled Provider:Trung FERGUSON MD Location[facility] Appointment Type:URO Office Visit Diagnostic Tests PendingUrine Culture 10/17/22 [facility] Evaluation + Plan note Future Appointments Appointment Date:11/06/2022 09:00:00 AM Scheduled Provider: Location:[facility] Appointment Type:URO Nurse Visit Appointment Date:01/01/2023 11:30:00 AM Scheduled Provider:Trung FERGUSON MD Location:[facility] [place] Appointment Type:URO Office Visit [facility] Evaluation + Plan note Future Appointments Appointment Date:07/09/2023 10:30:00 AM Scheduled Provider:Trung FERGUSON MD [facility] Appointment Type:URO Office Visit [facility] Evaluation + Plan note Future Appointments Appointment Date:04/03/2023 09:00:00 AM Scheduled Provider:CHARLOTTE BAKER PA-C Location:[facility] Appointment Type:URO Office Visit Appointment Date:07/09/2023 10:30:00 AM Scheduled Provider:Trung FERGSUON MD Location:[facility] Appointment Type:URO Office Visit [facility] Evaluation + Plan note Future Appointments Appointment Date:11/12/2023 11:15:00 AM Scheduled Provider:Trung FERGUSON MD Location:[facility] Appointment Type:URO Office Visit [facility] Evaluation + Plan note Future Appointments Appointment Date:06/16/2024 01:15:00 PM Scheduled Provider:Trung FERGUSON MD Location:[facility] Appointment Type:URO Office Visit [facility] Evaluation note No Assessments Infor mation Available [facility] Evaluation note No assessment inform ation available [facility] Evaluation note Diagnosis Paroxysmal atrial fibrillation (CMS/HCC)- Primary Atrial fibrillation Atrial fibrillation (CMS/HCC)- Primary Atrial fibrillation Atrial fibrillation ([facility]) Atrial fibrillation documented in this encounter [facility] Work Phone: Evaluation note* Diagnosis Atrial fibrillation (CMS/HCC)- Primary Atrial fibrillation Atrial fibrillation (CMS/HCC) Atrial fibrillation Chronic atrial fibrillation, unspecified (CMS/HCC) 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 documented in this encounter [facility] Work Phone: Evaluation note* Diagnosis [...] of left shoulder documented in this encounter [facility] Work Phone: Evaluation note* Diagnosis Atrial fibrillation, unspecified type ([facility]) documented in this encounter [facility] Work Phone: History of Present illness Narrative* The patient states he has been generally stable since the last visit. Comorbid Illnesses: hypertension. * Symptoms: denies chest pain at rest, denies exertional chest pain, denies dyspnea, worsened fatigue, worsened exercise intolerance, denies palpitations, denies edema, denies orthopnea, denies dizziness and denies orthostatic dizziness. * Disease Monitoring: -[facility] 250 DO Work Phone: History of Present [...] this, and will follow up with Loulou Rodríguez in the near future, to reassess adequacy [...] the near future to establish anticoagulation practice. -[facility] 250 DO Work Phone: History of [...] the near future to establish anticoagulation practice. [facility] DO Work Phone: History of Present illness [...] medication regimen. He denies medication side effects. [facility] DO Work Phone: History of Present illness [...] medication regimen. He denies medication side effects. [facility] 250 DO Work Phone: Hospital course Narrative No data available for this section [facility] Hospital Discharge instructions No data available for this section [facility] No data available for this section [facility] reason for referral (narrative)* Consultation (Routine) - Authorized Specialty Diagnoses / Procedures Referred By Contac t Referred To Contact Cardiology Diagnoses Paroxysmal atrial fibrillation (CMS/HCC) Procedures Follow Up In Cardiology Za Hernández MD [address] [facility] [address] [place] [address] Za Hernández MD [address] [facility] [address] [place] [address] Referral ID Status Reason Start Date Expiration Date V isits Requested Visits Authorized [id number] Authorized 10/22/2023 10/21/2024 1 1 * Consultation (Routine) - Authorized Specialty Diagnoses / Procedures Referred By Contac t Referred To Contact Cardiology Diagnoses Paroxysmal atrial fibrillation (CMS/HCC) Procedures Follow Up In Cardiology Za Hernández MD [address] [facility] [address] [place] [address] Loulou Arreguin, CROP PICKER-PHYS ASSISTANT [address] [facility] [address] [place] [address] Referral ID Status Reason Start Date Expiration Date V isits Requested Visits Authorized [id number] Authorized 10/22/2023 10/21/2024 1 1 [facility] Work Phone: Reason for Referral Status Reason Specialty Diagnoses / Procedures Referred By Contact Referred To Contact Not Required - [facility] Radiology Diagnoses 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) Procedures CT HEAD WO CONTRAST Ul Shalom Graham MD [address] [place] [address] Specialty Diagnoses / Procedures Referred By Romelia t Referred To Contact Radiology Diagnoses Atrial fibrillation, unspecified type (CMS/HCC) Procedures [place] [address] [place] [address] Referral ID Status Reason Start Date Expiration Date Visits Requested Visits Authorized [id number] Authorized Perform Procedure 11/01/2023 10/31/2024 1 1 Assessments Diagnosis 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) Advance Directives No Advanced Directives Records FoundDocuments on File Type Date Recorded Patient [place] Consultant Expl anation Advance Directives and Living Will Power of Nursing Support Worker Latest Code Status on File Code Status Date Activated Date Inactivated Comments Full Code 12/21/2019 9:20 PM 12/22/2019 7:58 PM Advance Directive Response Recorded Date/ Time Advance Directives No October 30, 2018 10:33am Documents on File Type Date Recorded Patient [place] Consultant Expl anation ACP-Advance Directive ACP-Power of Nursing Support Worker Latest Code Status on File Code Status [...] * Overall change in functional capacity. NEIL SAUCEDOUBB is being seen for a 9 month follow-up of.NEIL WILCOX is being seen for a 9 month follow-up of.NEIL DAVIAN is being seen for hypertension.NEIL DAVIAN is being seen for hypertension.NEIL SAUCEDOUBB is being seen for hypertension.NEIL SAUCEDOUBB is being seen for a 1 month follow-up of.NEIL SAUCEDOUBB is being seen for a 1 [...] WO CONTRAST Ul Shalom Graham MD [address] [facility] [address] [place] [address] Reason Comments laao Specialty Diagnoses / Procedures Referred By Contac t Referred To Contact Diagnoses Atrial fibrillation (CMS/HCC) Atrial fibrillation (CMS/HCC) [I48.91] Procedures NC PERQ CLSR TCAT L ATR APNDGE W/ENDOCARDIAL IMPLNT NC PERQ CLSR TCAT L ATR APNDGE W/ENDOCARDIAL IMPLNT LAAO (Left Atrial Appendage Occlusion) [place] [address] [place] [address] [facility] [address] [address] [place] [address] Referral ID Status Reason Start Date Expiration Date Visits Re quested Visits Authorized [id number] 1 1 Reason Comments Follow-up Watchman follow up Specialty Diagnoses / Procedures Referred By Contac t Referred To Contact Radiology Diagnoses Atrial fibrillation, unspecified type (CMS/HCC) Procedures [place] [address] [place] [address] Referral ID Status Reason Start Date Expiration Date Visits Requested Visits Authorized [id number] Authorized Perform Procedure 11/01/2023 10/31/2024 1 1 [...] section and content) DATE CREATED AUTHOR 10/14/2020 [facility] DATE CREATED AUTHOR AUTHOR'S ORGANIZ ATION 04/23/2021 [facility] DATE CREATED AUTHOR AUTHOR'S ORGANIZ ATION 10/04/2021 [facility] DATE CREATED AUTHOR AUTHOR'S ORGANIZ ATION 01/24/2023 [facility] DATE CREATED AUTHOR AUTHOR'S ORGANIZ ATION 06/15/2023 [employer] DATE CREATED AUTHOR AUTHOR'S ORGANIZ ATION 08/05/2023 [facility] DATE CREATED AUTHOR AUTHOR'S ORGANIZ ATION 09/02/2023 [facility] DATE CREATED AUTHOR AUTHOR'S ORGANIZ ATION 10/24/2023 [facility] DATE CREATED AUTHOR AUTHOR'S ORGANIZ ATION 11/21/[address] [facility] DATE CREATED AUTHOR AUTHOR'S ORGANIZ ATION 12/04/[address] [facility] DATE CREATED AUTHOR AUTHOR'S ORGANIZ ATION 01/03/2024 [facility] DATE CREATED AUTHOR AUTHOR'S ORGANIZ ATION 01/16/2024 [facility] DATE CREATED AUTHOR AUTHOR'S ORGANIZ ATION 02/13/2024 [facility] EPIC DATE CREATED AUTHOR AUTHOR'S ORGANIZ ATION 02/17/2024 [facility] DATE CREATED AUTHOR AUTHOR'S ORGANIZ ATION 02/22/2024 [facility] Goals (unrecognized section and [...] Active Za Hernández MD Attending Provider Active [employer] Manager Relationship Specialty Start Date End Date Sam Cooney DO [address] [place] [address] PCP - General 09/24/19 [employer] Services Manager Relationship Specialty Start Date End Date Sam Cooney, [address] [place] [address] PCP - General 09/24/19 [employer] Manager Relationship Specialty Start Date End Date Sam Cooney, [address] [place] [address] PCP - General 09/24/19 [employer] Services Manager Relationship Specialty Start Date End Date Sam Cooney MD [address] [place] [address] PCP - General Family Medicine 08/13/23 [employer] Manager Relationship Specialty Start Date End Date Sam Cooney, [address] [place] [address] PCP - General 09/24/19 Scheduled Active and [...] BE BASED ON THE PRIMARY CLINICAL RECORDS. Cuffed and Wanted [facility]. provides no warranty or guarantee of the accuracy or completeness of information in this document.
[2024-02-23] MEDS: ENOXAPARIN SODIUM 40 MG/0.4 ML SYRINGE SUBQ (13:18)
--- NOTE | 2024-02-23 14:24 | P.HP_ITS ---
HPI H&P: HPI History of Present Illness Chief complaint: ACUTE RENAL FAILURE Narrative: 78 y o male was brought over from senior living for change in mental status. Patient has advanced dementia and currently resides at senior living. 2 days ago, noted that patient's speech was slurred and he was not like his usual self. His symptoms improved afterwards and patient was not brought over for evaluation. Later on , nursing staff staff noted that patient is more drowsy, less responsive than usual and his speech was difficult to comprehend. He was brought over to [facility] ED -work up in ED revealed acute metabolic encephalopathy, ELSA and dehydration. Patient was started on IVF and admitted for further work up and clinical monitoring. Upon my evaluation, patient was confused, was unable to provide meaningful information and appeared to slurred speech and facial asymmetry on left. His was on bedside who reported that patient was not at his baseline and more confused than usual. CT head - no acute stroke/intracranial pathology/bleed noted. Suspect acute CVA- ordered MRI brain to r/o Acute ischemic stroke. Opioid HPI Opioid Management Most Recent Opioid Data: Last Pain Scale 6 01/29/24 11:43 Last Pain Intensity 3 01/28/24 09:40 Last Pain Assessment 02/23/24 13:54 Last ORT Total Score 1 02/23/24 12:33 Last ORT Risk Category Low Risk 02/23/24 12:33 Review of Systems ROS Status of ROS 10 or more systems reviewed and unremark able except as noted in history and below [facility] Medical History (Updated 02/23/24 @ 14:32 by Shaikh Zhane MD) Pancytopenia ?D61.818 - Other pancytopenia (ICD-10) Compression fracture of lumbar vertebra ?S32.000A - Wedge compression fracture of unspecified lumbar vertebra, initial encounter for closed fracture (ICD-10) Multiple falls ?R29.6 - Repeated falls (ICD-10) Fracture of shoulder ?S42.90XA - Fracture of unspecified shoulder girdle, part unspecified, initial encounter for closed fracture (ICD-10) Cytopenia ?D75.9 - Disease of blood and blood-forming organs, unspecified (ICD-10) Closed lumbar fracture with cord injury ?S34.109A - Unspecified injury to unspecified level of lumbar spinal cord, initial encounter (ICD-10) ?S32.008A - Other fracture of unspecified lumbar vertebra, initial encounter for closed fracture (ICD-10) Dementia ?F03.90 - Unspecified dementia, unspecified severity, without behavioral disturbance, psychotic disturbance, mood disturbance, and anxiety (ICD-10) Afib ?I48.91 - Unspecified atrial fibrillation (ICD-10) Recurrent cerebrovascular accidents (CVAs) ?I63.9 - Cerebral infarction, unspecified (ICD-10) NPH (normal pressure hydrocephalus) ?G91.2 - (Idiopathic) normal pressure hydrocephalus (ICD-10) Multiple falls ?R29.6 - Repeated falls (ICD-10) Head injury ?S09.90XA - Unspecified injury of head, initial encounter (ICD-10) Obstructive sleep apnea ?G47.33 - Obstructive sleep apnea (adult) (pediatric) (ICD-10) BPH (benign prostatic hyperplasia) ?N40.0 - Benign prostatic hyperplasia without lower urinary tract symptoms (ICD-10) Alzheimer disease ?G30.9 - Alzheimer's disease, unspecified (ICD-10) ?F02.80 - Dementia in other diseases classified elsewhere, unspecified severity, without behavioral disturbance, psychotic disturbance, mood disturbance, and anxiety (ICD-10) Vertigo ?R42 - Dizziness and giddiness (ICD-10) Hypertension ?I10 - Essential (primary) hypertension (ICD-10) Surgical History (Updated 02/23/24 @ 13:03 by Chrissy Gibbs) History of right shoulder replacement ?Z96.611 - Presence of right artificial shoulder joint (ICD-10) History of loop recorder ?Z98.890 - Other specified postprocedural states (ICD-10) Presence of Watchman left atrial appendage closure device ?Z95.818 - Presence of other cardiac implants and grafts (ICD-10) Family History (Updated 02/23/24 @ 13:04 by Chrissy Gibbs) Father Family history of COPD (chronic obstructive pulmonary disease) Social History Smoking status: Never smoker Highest level of school completed/degree received: high school graduate Do you think of yourself as: straight/heterosexual Gender Identity: male Meds Home Medications and Allergies Home Medications ?Medication ?Instructions ?Recorded ?Confirmed ?Type finasteride 5 mg tablet 5 mg PO DAILY 05/20/23 02/23/24 History folic acid 1 mg tablet 1 mg PO DAILY 05/20/23 02/23/24 History metoprolol succinate 25 mg 25 mg PO DAILY 05/20/23 02/23/24 History tablet,extended release 24 hr spironolactone 25 mg tablet 25 mg PO DAILY 05/20/23 02/23/24 History tolterodine 2 mg capsule,extended 2 mg PO BEDTIME 07/13/23 02/23/24 History release 24 hr fluoxetine 40 mg capsule 40 mg PO DAILY 01/26/24 02/23/24 History memantine 10 mg tablet 10 mg PO BID 01/26/24 02/23/24 History losartan 100 mg tablet 100 mg PO DAILY 01/27/24 02/23/24 History acetaminophen 500 mg capsule 1,000 mg PO Q6H PRN fever or pain 02/23/24 02/23/24 History acetaminophen 500 mg tablet 1,000 mg PO BID 02/23/24 02/23/24 History (Acetaminophen Extra Strength) aspirin 81 mg capsule 81 mg PO DAILY 02/23/24 02/23/24 History cyanocobalamin (vitamin B-12) 1,000 mcg PO DAILY 02/23/24 02/23/24 History 1,000 mcg capsule doxazosin 4 mg tablet (Cardura) 4 mg PO DAILY 02/23/24 02/23/24 History ondansetron HCl 4 mg tablet 4 mg PO Q8H PRN nausea and vomiting 02/23/24 02/23/24 History quetiapine 25 mg tablet (Seroquel) 12.5 mg PO BID 02/23/24 02/23/24 History Allergies Allergy/AdvReac Type Severity Reaction Status Date / Time No Known Drug Allergies Allergy Verified 01/26/24 20:17 Exam Constitutional Vital Signs, click to edit/add: Last Vital Signs Temp 98.3 F 02/23/24 12:33 Pulse 90 02/23/24 13:52 Resp 20 02/23/24 12:33 BP 122/73 02/23/24 12:33 Pulse Ox 92 L 02/23/24 12:33 O2 Del Method Room Air 02/23/24 12:33 Documenting provider has reviewed patient's vital signs: yes Common normals: no apparent distress Exam limitations: altered mental status General appearance: lethargic, ill appearing and frail appearing HENAL Common normals: normocephalic and head/scalp atraumatic Eye Common normals: PERRL and EOMs intact bilaterally Respiratory Common normals: normal respiratory effort, no use of accessory muscles and clear to auscultation bilaterally Effort & inspection: able to speak in complete sentences Cardio Common normals: no JVD, regular rhythm, S1 normal heart sound and S2 normal heart sound GI Common normals: Normal to inspection, nondistended, normoactive bowel sounds present, soft to palpation, non-tender and no hepatosplenomegaly Extremity Common normals: normal to inspection and full ROM Neuro Common normals: moves all extremities and no sensory deficits noted Sensorium/orientation: awake, orientation impaired and lethargic Speech: abnormal speech Gait (neuro): unable to assess gait Psych Attitude: calm Activity/motor behavior: appropriate eye contact Speech: incoherent Thought process: confused Memory/cognition: memory grossly impaired and cognition grossly impaired Results Labs Labs: Short CBC 02/23/24 Range/Units 10:03 WBC 1.9 L (4.0-11.0) 10^3/uL Hgb 8.1 L (14.0-18.0) g/dL Hct 24.5 L (42.0-54.0) % Plt Count 70 L (150-450) 10^3/uL BMP 02/23/24 10:03 Sodium 138 Potassium 4.6 Chloride 101 Carbon Dioxide 24.9 BUN 95.0 H* Creatinine 2.55 H Glucose 120 H Calcium 12.6 H Liver Function 02/23/24 Range/Units 10:03 Total Bilirubin 0.6 (0.2-1.0) mg/dL AST 10 L (15-37) U/L ALT 14 L (16-63) U/L Alkaline Phosphatase 87 (46-116) U/L Albumin 2.9 L (3.4-5.0) g/dL Urine 02/23/24 Range/Units 09:08 Urine Color Lt. yellow (YELLOW) Urine Clarity Clear (CLEAR) Urine pH 5.5 (5.0-9.0) Ur Specific [place] 1.020 (1.005-1.025) Urine Protein Trace (NEG/TRACE) mg/dL Urine Glucose (UA) Negative (NEGATIVE) mg/dL Assessment and Plan Assessment and Plan (1) Metabolic encephalopathy: Assessment and Plan: No acute pathology on CTH. Confused at baseline due to dementia but he is more confused and isn't behaving like his usual self. No infectious etiology on work up- Normal CXR, Normal UA. Neuro checks q4. Suspected stroke vs dehydration resulting in his clinical presentation. MRI brain ordered. (2) Acute renal failure: Assessment and Plan: Normal renal function at baseline. Presented with serum creatinine of 2.5. Likely pre renal azotemia. Started on IVF. Monitor UO, serum creatinine. Avoid neprotoxins. Qualifiers: Acute renal failure type: unspecified Qualified Code(s): N17.9 - Acute kidney failure, unspecified (3) Suspected cerebrovascular accident (CVA): Assessment and Plan: Confusion with slurred speech, facial asymmetry. No stroke on CTH. Mri ordered. (4) Pancytopenia: Assessment and Plan: Stable, unchanged. Outpatient w/u (5) Dementia: Assessment and Plan: Due to Alzheimirs and advanced. On memantine. C/w same Qualifiers: Alzheimer's disease onset: early onset Dementia behavioral or psychological symptom: with mood disturbance Dementia severity: severe Dementia type: Alzheimer's Qualified Code(s): G30.0 - Alzheimer's disease with early onset; F02.C3 - Dementia in other diseases classified elsewhere, severe, with mood disturbance (6) Alzheimer disease: Assessment and Plan: Alzheimers dementia, on memantine (7) Hypertension: Assessment and Plan: Hold losartna, aldactone due to ELSA. C/w toprol Qualifiers: Hypertension type: primary hypertension Qualified Code(s): I10 - Essential (primary) hypertension (8) BPH (benign prostatic hyperplasia): Assessment and Plan: c/w finasteride. Qualifiers: Lower urinary tract symptom presence: symptoms absent Qualified C ode(s): N40.0 - Benign prostatic hyperplasia without lower urinary tract symptoms Urinary Catheter Management Urinary Catheter Management Straight: Cath placed during this visit: yes Urethral indwelling: No Insertion date: 02/23/24 Insertion time: 09:21
[2024-02-23] MEDS: LACTATED RINGER'S SOLUTION 1,000 ML 125 ML IV ×2 (14:44→22:02)
[2024-02-23] MEDS: ACETAMINOPHEN 500 MG TABLET 1000 MG PO (15:26)
[2024-02-23 19:39] LABS: Glucometer 113 mg/dL (74-106)
[2024-02-23] MEDS: SOLIFENACIN SUCCINATE 5 MG TABLET PO (22:02)
[2024-02-23] MEDS: QUETIAPINE FUMARATE 25 MG TABLET 12.5 MG PO (22:02)
[2024-02-24] VITALS (21 sets, daily range): BP systolic 115–176; BP diastolic 57–86; PULSE 62–80; TEMP 36.4–36.9; O2SAT 90–94
[2024-02-24 05:38] LABS: Basophils Percent Auto 0.5 % (0.2-2.0); Eosinophils Absolute Auto 0.2 10^3/uL (0.0-0.7); Eosinophils Percent Auto 8.4 % (0.9-7.0); Immature Granulocytes Abs Auto 0.01 10^3/uL (0.00-0.03); Immature Granulocytes Pct Auto 0.5 % (0.0-0.5); Lymphocytes Absolute Auto 0.9 10^3/uL (1.2-3.8); Lymphocytes Percent Auto 43.9 % (20.5-60.0); Mean Corpuscular HGB Conc 31.9 g/dL (29.9-35.2); Mean Corpuscular Hemoglobin 34.9 pg (25.9-34.0); Mean Corpuscular Volume 109.4 fL (80.0-94.0); Mean Platelet Volume 9.2 fL (9.5-13.5); Monocytes Absolute Auto 0.4 10^3/uL (0.3-0.8); Monocytes Percent Auto 18.2 % (1.7-12.0); Neutrophils Absolute Auto 0.6 10^3/uL (1.4-6.5); Neutrophils Percent Auto 28.5 % (43.0-75.0); Platelet Count 57 10^3/uL (150-450); Red Blood Count 1.92 10^6/uL (4.70-6.10); Red Cell Distribution Width 16.3 % (11.0-15.0); White Blood Count 2.1 10^3/uL (4.0-11.0)
[2024-02-24 05:53] LABS: Alanine Aminotransferase 11 U/L (16-63); Albumin Globulin Ratio 0.4; Albumin Level 2.3 g/dL (3.4-5.0); Alkaline Phosphatase 67 U/L (46-116); Aspartate Amino Transferase 8 U/L (15-37); BUN Creatinine Ratio 33.7; Bilirubin Total 0.5 mg/dL (0.2-1.0); Calcium 11.4 mg/dL (8.5-10.1); Carbon Dioxide 24.1 mmol/L (21.0-32.0); Chloride 105 mmol/L (98-107); Estimated GFR (African America 42 (>=60); Estimated GFR (Non-African Ame 35 (>=60); Globulin 6.2 g/dL; Glucose 86 mg/dL (74-106); Potassium 4.1 mmol/L (3.5-5.1); Sodium 138 mmol/L (136-145); Total Protein 8.5 g/dL (6.4-8.2)
[2024-02-24 06:02] LABS: Hemoglobin 6.7 g/dL (14.0-18.0)
[2024-02-24] MEDS: MEMANTINE HCL 28 MG CAP XR PO (08:18)
[2024-02-24] MEDS: LACTATED RINGER'S SOLUTION 1,000 ML 125 ML IV ×3 (08:18→21:50)
[2024-02-24] MEDS: ASPIRIN 81 MG TAB.CHEW PO (08:18)
[2024-02-24] MEDS: METOPROLOL SUCCINATE 25 MG TAB.ER.24H PO (08:19)
[2024-02-24] MEDS: FOLIC ACID 1 MG TABLET PO (08:19)
[2024-02-24] MEDS: FLUOXETINE HCL 20 MG CAPSULE 40 MG PO (08:19)
[2024-02-24] MEDS: QUETIAPINE FUMARATE 25 MG TABLET 12.5 MG PO ×2 (08:19→21:46)
[2024-02-24] MEDS: FINASTERIDE 5 MG TABLET PO (08:19)
--- NOTE | 2024-02-24 10:49 | PM.IMPN1 ---
Progress Note: A&P Assessment and Plan (1) Metabolic encephalopathy: Assessment and Plan: likely due to dehydration. Resolved and patient is back to his baseline. MRI brain pending. No acute finding on CTH (2) Acute renal failure: Assessment and Plan: Improving but not back to its baseline C/w IVF. Monitor renal function. Qualifiers: Acute renal failure type: unspecified Qualified Code(s): N17.9 - Acute kidney failure, unspecified (3) Suspected cerebrovascular accident (CVA): Assessment and Plan: Neurological symptoms resolved. MRI brain pending. CTH - no acute intracranial pathology. (4) Pancytopenia: Assessment and Plan: Likely due to bone marrow suppression. Following hematology as outpatient. Hb below 7 - ordered one unit PRBC. Repeat CBC post tx. No evidence of overt/active bleeding. (5) Dementia: Assessment and Plan: At his baseline. C/w memantine Qualifiers: Alzheimer's disease onset: early onset Dementia behavioral or psychological symptom: with mood disturbance Dementia severity: severe Dementia type: Alzheimer's Qualified Code(s): G30.0 - Alzheimer's disease with early onset; F02.C3 - Dementia in other diseases classified elsewhere, severe, with mood disturbance (6) Alzheimer disease: Assessment and Plan: Back to baseline. C/w same medications (7) Hypertension: Assessment and Plan: C/w home medications, hold losartan/aldactone. Qualifiers: Hypertension type: primary hypertension Qualified Code(s): I10 - Essential (primary) hypertension (8) BPH (benign prostatic hyperplasia): Assessment and Plan: c/w finasteride. Qualifiers: Lower urinary tract symptom presence: symptoms absent Qualified Code(s): N40.0 - Benign prostatic hyperplasia without lower urinary tract symptoms Plan Renal function - not improved to baseline. Anemia requiring blood transfusion. Mental status improved and more or less back to its baseline. Needs MRI brain, continued treatment with IVF, and monitoring of his blood count/Hb Internal Medicine - PN: Subj Subjective Interval history: Seen and examined. No active complaints to offer. Mental status appears to be at baseline now. Renal function has not returned to baseline with IVF. Speech is back to normal, facial asymmetry resolved. Exam Constitutional Vital Signs, click to edit/add: Last Vital Signs Temp 98.1 F 02/24/24 09:48 Pulse 72 02/24/24 09:48 Resp 18 02/24/24 09:48 BP 118/70 02/24/24 09:48 Pulse Ox 92 L 02/24/24 09:48 O2 Del Method Room Air 02/24/24 09:48 Documenting provider has reviewed patient's vital signs: yes Common normals: no apparent distress Exam limitations: altered mental status General appearance: frail appearing HENMA Common normals: normocephalic and head/scalp atraumatic Respiratory Common normals: normal respiratory effort, no use of accessory muscles and clear to auscultation bilaterally Effort & inspection: able to speak in complete sentences Cardio Common normals: no JVD, regular rhythm, S1 normal heart sound and S2 normal heart sound GI Common normals: Normal to inspection, nondistended, normoactive bowel sounds present, soft to palpation, non-tender and no hepatosplenomegaly Extremity Common normals: normal to inspection and full ROM Neuro Common normals: oriented x3, moves all extremities and no sensory deficits noted Sensorium/orientation: awake Psych Common normals: mental status grossly normal and thought process normal Internal Medicine - PN: Obj Da Labs Labs: Laboratory Results - last 24 hr 02/23/24 02/23/24 02/24/24 10:03 19:37 04:29 WBC 2.1 L RBC 1.92 L Hgb 6.7 L* Hct 21.0 L* MCV 109.4 H MCH 34.9 H MCHC 31.9 RDW 16.3 H Plt Count 57 L MPV 9.2 L Neut % (Auto) 28.5 L Lymph % (Auto) 43.9 [place] % (Auto) 18.2 H Eos % (Auto) 8.4 H Baso % (Auto) 0.5 Neut # (Auto) 0.6 L Lymph # (Auto) 0.9 L [place] # (Auto) 0.4 Eos # (Auto) 0.2 Baso # (Auto) 0.0 Abs Immat Gran (auto) 0.01 Imm/Tot Granulo (auto) 0.5 Sodium 138 138 Potassium 4.6 4.1 Chloride 101 105 Carbon Dioxide 24.9 24.1 Anion Gap 16.7 13.0 BUN 95.0 H* 64.0 H Creatinine 2.55 H 1.90 H Est GFR ( Amer) 30 L 42 L Est GFR (Non-Af Amer) 25 L 35 L BUN/Creatinine Ratio 37.3 33.7 Glucose 120 H 86 Calcium 12.6 H 11.4 H Total Bilirubin 0.6 0.5 AST 10 L 8 L ALT 14 L 11 L Alkaline Phosphatase 87 67 Troponin I High Sens 21.1 Total Protein 10.5 H 8.5 H Albumin 2.9 L 2.3 L Globulin 7.6 6.2 Albumin/Globulin Ratio 0.4 0.4 POC Glucose 113 H Blood Type Antibody Screen Crossmatch 02/24/24 07:59 WBC RBC Hgb Hct MCV MCH MCHC RDW Plt Count MPV Neut % (Auto) Lymph % (Auto) [place] % (Auto) Eos % (Auto) Baso % (Auto) Neut # (Auto) Lymph # (Auto) [place] # (Auto) Eos # (Auto) Baso # (Auto) Abs Immat Gran (auto) Imm/Tot Granulo (auto) Sodium Potassium Chloride Carbon Dioxide Anion Gap BUN Creatinine Est GFR ( Amer) Est GFR (Non-Af Amer) BUN/Creatinine Ratio Glucose Calcium Total Bilirubin AST ALT Alkaline Phosphatase Troponin I High Sens Total Protein Albumin Globulin Albumin/Globulin Ratio POC Glucose Blood Type A Positive Antibody Screen Negative Crossmatch See Detail Urinary Catheter Management Urinary Catheter Management Straight: Cath placed during this visit: yes Urethral indwelling: No Insertion date: 02/23/24 Insertion time: 09:21
[2024-02-24 15:21] LABS: Hemoglobin 7.8 g/dL (14.0-18.0); Mean Corpuscular HGB Conc 33.3 g/dL (29.9-35.2); Mean Corpuscular Volume 104.9 fL (80.0-94.0); Mean Platelet Volume 8.9 fL (9.5-13.5); Platelet Count 58 10^3/uL (150-450); Red Blood Count 2.23 10^6/uL (4.70-6.10); Red Cell Distribution Width 18.9 % (11.0-15.0); White Blood Count 2.6 10^3/uL (4.0-11.0)
[2024-02-24 15:24] LABS: Hematocrit 23.4 % (42.0-54.0)
[2024-02-24 15:43] LABS: Eosinophils Absolute Manual 0.18 10^3/uL (0.00-0.70); Lymphocytes Absolute Manual 1.71 10^3/uL (1.20-3.80); Monocytes Absolute Manual 0.02 10^3/uL (0.30-0.80); Segmented Neut Absolute Manual 0.67 10^3/uL (1.4-6.5)
--- NOTE | 2024-02-24 18:16 | PC.NURSE ---
Patients brief saturated. Patient urinated while on side during brief change.
[2024-02-24] MEDS: SOLIFENACIN SUCCINATE 5 MG TABLET PO (21:46)
[2024-02-25] VITALS (9 sets, daily range): BP systolic 106–176; BP diastolic 62–79; PULSE 47–72; TEMP 36.3–36.7; O2SAT 64–92
[2024-02-25] MEDS: LACTATED RINGER'S SOLUTION 1,000 ML 125 ML IV ×2 (05:05→09:01)
[2024-02-25 05:25] LABS: Eosinophils Absolute Auto 0.3 10^3/uL (0.0-0.7); Eosinophils Percent Auto 9.9 % (0.9-7.0); Hemoglobin 7.9 g/dL (14.0-18.0); Lymphocytes Absolute Auto 1.1 10^3/uL (1.2-3.8); Lymphocytes Percent Auto 42.2 % (20.5-60.0); Mean Corpuscular HGB Conc 33.3 g/dL (29.9-35.2); Mean Corpuscular Volume 104.9 fL (80.0-94.0); Mean Platelet Volume 9.4 fL (9.5-13.5); Monocytes Absolute Auto 0.4 10^3/uL (0.3-0.8); Neutrophils Absolute Auto 0.8 10^3/uL (1.4-6.5); Neutrophils Percent Auto 31.9 % (43.0-75.0); Platelet Count 61 10^3/uL (150-450); Red Blood Count 2.26 10^6/uL (4.70-6.10); Red Cell Distribution Width 18.7 % (11.0-15.0); White Blood Count 2.6 10^3/uL (4.0-11.0)
[2024-02-25 05:56] LABS: Alanine Aminotransferase 10 U/L (16-63); Albumin Globulin Ratio 0.3; Albumin Level 2.2 g/dL (3.4-5.0); Alkaline Phosphatase 64 U/L (46-116); Anion Gap 15.9; Aspartate Amino Transferase 12 U/L (15-37); Bilirubin Total 0.8 mg/dL (0.2-1.0); Calcium 11.5 mg/dL (8.5-10.1); Carbon Dioxide 23.3 mmol/L (21.0-32.0); Chloride 104 mmol/L (98-107); Estimated GFR (African America 49 (>=60); Estimated GFR (Non-African Ame 40 (>=60); Globulin 6.3 g/dL; Glucose 80 mg/dL (74-106); Potassium 4.2 mmol/L (3.5-5.1); Sodium 139 mmol/L (136-145); Total Protein 8.5 g/dL (6.4-8.2)
[2024-02-25 06:09] LABS: Hematocrit 23.7 % (42.0-54.0)
[2024-02-25] MEDS: FLUOXETINE HCL 20 MG CAPSULE 40 MG PO (09:01)
[2024-02-25] MEDS: ASPIRIN 81 MG TAB.CHEW PO (09:01)
[2024-02-25] MEDS: FOLIC ACID 1 MG TABLET PO (09:01)
[2024-02-25] MEDS: MEMANTINE HCL 28 MG CAP XR PO (09:02)
[2024-02-25] MEDS: METOPROLOL SUCCINATE 25 MG TAB.ER.24H PO (09:02)
[2024-02-25] MEDS: QUETIAPINE FUMARATE 25 MG TABLET 12.5 MG PO (09:02)
[2024-02-25] MEDS: FINASTERIDE 5 MG TABLET PO (09:02)
--- NOTE | 2024-02-25 10:13 | P.DS_ITS ---
DS: Providers Provider Date of admission: 02/23/24 12:16 Primary care physician: SAM PABON Admitting clinician: Shaikh Zhane Attending physician on admission: Shaikh Zhane Consults: 02/23/24 11:27 Occupational Therapy Eval and Treat Routine Reason for consultation: Ambulatory dysfunction/weakness Physical Therapy Eval and Treat Routine Reason for consultation: Ambulatory dysfunction/weakness Attending physician on discharge: Shaikh Zhane Discharging clinician: Shaikh Zhane Anticipated date of discharge: 02/25/24 DS: Diagnosis Discharge Diagnosis (1) Metabolic encephalopathy: Assessment and plan: Resolved. back to baseline. (2) Acute renal failure: Assessment and plan: likely pre renal, improved with hydration Qualifiers: Acute renal failure type: unspecified Qualified Code(s): N17.9 - Acute kidney failure, unspecified (3) Suspected cerebrovascular accident (CVA): Assessment and plan: Due to dysarthria on exam but resolved. MRI can't be done due to presence of loop recorded. Will defer to outpatient. CTH - no evidence of stroke. Clinically does not seem like he had CVA on presentation (4) Pancytopenia: Assessment and plan: Required blood transfusion. Hb stable since tx. Outpatient f/u with oncology. (5) Dementia: Assessment and plan: Severe/advanced. F/u with neurology. Qualifiers: Alzheimer's disease onset: early onset Dementia behavioral or psychological symptom: with mood disturbance Dementia severity: severe Dementia type: Alzheimer's Qualified Code(s): G30.0 - Alzheimer's disease with early onset; F02.C3 - Dementia in other diseases classified elsewhere, severe, with mood disturbance (6) Alzheimer disease: Assessment and plan: F/u with neurology. (7) Hypertension: Assessment and plan: C/w home medications. hold aldactone Qualifiers: Hypertension type: primary hypertension Qualified Code(s): I10 - Essential (primary) hypertension (8) BPH (benign prostatic hyperplasia): Assessment and plan: C/w home medications Qualifiers: Lower urinary tract symptom presence: symptoms absent Qualified Code(s): N40.0 - Benign prostatic hyperplasia without lower urinary tract symptoms DS: Summary Hospital Course Hospital Course: 78 y o [facility] status. Nursing staff staff noted that patient was more drowsy, less responsive than usual and his speech was difficult to comprehend. He was brought over to [facility] ED -work up in ED revealed acute metabolic encephalopathy, ELSA and dehydration. Patient was started on IVF and admitted for further work up and clinical monitoring. CT head - no acute stroke/intracranial pathology/bleed noted. Low suspicion of stroke as symptoms improved with IV hydration. MRI brain was ordered but could not be done due to presence of loop recorder. He is on ASA for Afib. Status at Discharge Overall status at discharge: patient is back to baseline Time Spent with Patient Time attestation: Total time spent providing and/or coordinating discharge services: Time spent: greater than 30 minutes Exam Constitutional Vital Signs, click to edit/add: Last Vital Signs Temp 98.1 F 02/25/24 06:00 Pulse 55 L 02/25/24 08:00 Resp 18 02/25/24 06:00 BP 176/79 H 02/25/24 06:00 Pulse Ox 92 L 02/25/24 06:00 O2 Del Method Room Air 02/25/24 06:00 Documenting provider has reviewed patient's vital signs: yes Common normals: no apparent distress Exam limitations: altered mental status General appearance: frail appearing Respiratory Common normals: normal respiratory effort, no use of accessory muscles and clear to auscultation bilaterally Effort & inspection: able to speak in complete sentences Cardio Common normals: no JVD, regular rhythm, S1 normal heart sound and S2 normal heart sound Neuro Common normals: oriented x3, moves all extremities and no sensory deficits noted Sensorium/orientation: awake Psych Common normals: mental status grossly normal and thought process normal DS: Data Data Completed and Pending Labs on day of discharge: Labs from last 24 hours 02/25/24 02/24/24 02/24/24 03:51 15:17 07:59 WBC 2.6 L 2.6 L RBC 2.26 L 2.23 L Hgb 7.9 L 7.8 L Hct 23.7 L* 23.4 L* MCV 104.9 H 104.9 H MCH 35.0 H 35.0 H MCHC 33.3 33.3 RDW 18.7 H 18.9 H Plt Count 61 L 58 L MPV 9.4 L 8.9 L Neut % (Auto) 31.9 L Lymph % (Auto) 42.2 [place] % (Auto) 16.0 H Eos % (Auto) 9.9 H Baso % (Auto) 0.0 L Neut # (Auto) 0.8 L Lymph # (Auto) 1.1 L [place] # (Auto) 0.4 Eos # (Auto) 0.3 Baso # (Auto) 0.0 Abs Immat Gran (auto) 0.00 Seg Neuts % (Manual) 26.0 Lymphocytes % (Manual) 66.0 H Monocytes % (Manual) 1.0 L Eosinophils % (Manual) 7.0 Basophils % (Manual) 0.0 L Imm/Tot Granulo (auto) 0.0 Neutrophils # (Manual) 0.67 L Lymphocytes # (Manual) 1.71 Monocytes # (Manual) 0.02 L Eosinophils # (Manual) 0.18 Basophils # (Manual) 0.00 Sodium 139 Potassium 4.2 Chloride 104 Carbon Dioxide 23.3 Anion Gap 15.9 BUN 40.0 H Creatinine 1.67 H Est GFR ( Amer) 49 L Est GFR (Non-Af Amer) 40 L BUN/Creatinine Ratio 24.0 Glucose 80 Calcium 11.5 H Total Bilirubin 0.8 AST 12 L ALT 10 L Alkaline Phosphatase 64 Total Protein 8.5 H Albumin 2.2 L Globulin 6.3 Albumin/Globulin Ratio 0.3 Crossmatch See Detail Discharge Plan Discharge Disposition: Xfer [facility] Condition: Serious Discharge Medications: Continued finasteride 5 mg tablet 5 mg PO DAILY folic acid 1 mg tablet 1 mg PO DAILY metoprolol succinate 25 mg tablet extended release 24 hr 25 mg PO DAILY tolterodine 2 mg capsule,extended release 24hr 2 mg PO BEDTIME fluoxetine 40 mg capsule 40 mg PO DAILY memantine 10 mg tablet 10 mg PO BID losartan 100 mg tablet 100 mg PO DAILY aspirin 81 mg capsule 81 mg PO DAILY cyanocobalamin (vitamin B-12) 1,000 mcg capsule 1,000 mcg PO DAILY doxazosin [Cardura] 4 mg tablet 4 mg PO DAILY acetaminophen 500 mg capsule 1,000 mg PO Q6H PRN (Reason: fever or pain) quetiapine [Seroquel] 25 mg tablet 12.5 mg PO BID ondansetron HCl 4 mg tablet 4 mg PO Q8H PRN (Reason: nausea and vomiting) acetaminophen [Acetaminophen Extra Strength] 500 mg tablet 1,000 mg PO BID Discontinued spironolactone 25 mg tablet 25 mg PO DAILY Print Language: Ukrainian Forms: Portal Instructions Follow Up Appointments: PCP in one week
--- NOTE | 2024-02-25 10:28 | CM.NOTE ---
Rounds made with Dr. Phelan, discussed plan of care with pt and . Pt was at [facility] for skilled therapy and plans to return at discharge. Called [facility] and faxed clinical updates on patient.
--- NOTE | 2024-02-25 11:31 | CM.NOTE ---
Called [facility] to update on pt's discharge today. Pt will be transferred by [facility] between 12:00 - 12:30. Updated pt's and pt. Faxed Discharge summary and Med list to [facility].
--- NOTE | 2024-02-25 11:36 | CM.NOTE ---
Important Message From Medicare discussed with pt's on telephone, verbalizes understanding and consents for paper to be signed. Original given to pt and copy placed on pt's chart.
== END 2024-02-25 12:31 | DRG 640 ==
LOC: ER 11:31 → MS 02-25 07:35
PROVIDERS: Admitting Provider Internal Medicine; Emergency Provider Emergency Medicine Emergency Medical Services; PCP Family Medicine; Visit Provider Internal Medicine
DX: E86.0 Dehydration (principal); G93.41 Metabolic encephalopathy; N17.9 Acute kidney failure, unspecified; D61.818 Other pancytopenia; F02.C3 Dementia in other diseases classified elsewhere, severe, with mood disturbance; G91.2 (Idiopathic) normal pressure hydrocephalus; G30.0 Alzheimer's disease with early onset; I10 Essential (primary) hypertension; N40.0 Benign prostatic hyperplasia without lower urinary tract symptoms; Z91.81 History of falling; I48.91 Unspecified atrial fibrillation; G47.33 Obstructive sleep apnea (adult) (pediatric); Z96.611 Presence of right artificial shoulder joint; Z95.818 Presence of other cardiac implants and grafts; Z66 Do not resuscitate
CPT/HCPCS: 36415; 36430; 70450; 71045; 80053; 81001; 82948; 83690; 84484; 85007; 85025; 85027; 86850; 86900; 86901; 87040; 87804; 93005; 94761; 96372; 97161; 99285; G0378; J0696; J1650; P9016

== ENCOUNTER 2024-03-10 01:18 | Outpatient (REF) | payer MEDICARE, SELFPAY ==
--- OUTSIDE RECORDS SUMMARY | 2024-03-10 01:23 | XMS_ITS | CCD ---
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, Sam E Primary Care Provider [phone] [facility], [place] Primary Care Provider [phone] Erick Wise Attending Provider Ul Santos, Israr Attending Provider [phone], Sam E Primary Care Provider [phone] LESTER GAO Admitting Unavailable LESTER GAO Attending Unavailable BILLY VILLA Referring Unavailable CYNDY MADISON Consulting Unavailable BRISTOL, SAM E Primary Care Unavailable UL SANTOS, ISRAR Referring Unavailable BRISTOL, SAM E Primary Care Unavailable UL SANTOS, ISRAR Referring Unavailable BRISTOL, SAM E Primary Care Unavailable Sam Cooney Attending Provider [phone], Sam Primary Care Provider Erick Wise Attending Provider Eros, [place] Primary Care Provider [phone] Erick Wise Attending Provider [phone] Sam Cooney Attending Provider [phone], Sam E Unavailable Unavailable Unavailable EROS SAM Primary Care Physician [phone] Unavailable Unavailable DO Sam Cooney Primary Care Provider [phone] MD Za Hernández Attending Provider DR TRUNG RUGGIERO Consulting Unavailable MARTY ., DR NINO Attending Unavailable MARTY ., DR NINO Admitting Unavailable DR SAM COONEY Primary Care Unavailable ROXANNE ZAIDI Consulting Unavailable MARTY ., DR NINO Attending Unavailable FERGUSON ., DR NINO Admitting Unavailable FERGUSON ., DR NINO Consulting Unavailable BRISTOL, DR VARGAS Primary Care Unavailable RORY, CLARA Consulting Unavailable ARREGUIN, DR CONCHITA Frost Consulting Unavailable ARREGUIN, DR CONCHITA Frost Attending Unavailable BRISTOL, DR VARGAS Primary Care Unavailable ARREGUIN, DR CONCHITA Frost Admitting Unavailable JUAN R, EBONI Consulting Unavailable FERGUSON ., DR NINO Attending [...] Attending Unavailable BRISTOL, DR VARGAS Admitting Unavailable [facility], DO Sam Primary Care Provider MD Za Hernández Attending Provider [phone] PURNIMA DAVIDSON JR Primary Care Unavailable [facility], DO Sam Primary Care Provider MD Za Hernández Attending Provider Sam Cooney DO Primary Care [facility] ider Eros, Dr. Sam Evans Primary Care Unavailable AZ HERNÁNDEZ Attending Unavailable ZA HERNÁNDEZ Referring Unavailable [facility], Dr. Sam Evans Primary Care Unavailable ZA HERNÁNDEZ Attending Unavailable ZA HRENÁNDEZ Referring Unavailable [facility], Dr. Sam Evans Primary Care Unavailable ZA HERNÁNDEZ Attending Unavailable AZ HERNÁNDEZ Referring Unavailable Eros, Dr. Sam Evans Primary Care Unavailable Rodríguez, MsDeidre Hurt Attending Dima Arreguin, Ms. Loulou Hurt Referring Unavai labwalter Cooney, Dr. Sam Evans Primary Care Unavailable Rodríguez, MsDeidre Hurt Attending Dima Arreguin, Ms. Loulou Hurt Referring Unavai labwalter Cooney, Dr. Sam Evans Primary Care Unavailable [facility], Dr. Sam Evans Primary Care Unavailable [facility], Dr. Sam Evans Primary Care Unavailable [facility] Joseph, Dr. Sam Evans Primary Care Unavailable [facility], DO Sam Primary Care Provider [phone] MD Za Hernández Attending Provider ZA HERNÁNDEZ Attending Unavailable SAM COONEY Primary Care Unav ailable Sam Cooney MD Primary Care Provider [phone] GUNNAR SHAFFER DO Attending Unavailabl e SHAFFER DO, GUNNAR Admitting Unavailabl e CAMILA ZEPEDA MD Referring Unavailabl e SHAFFER DO, GUNNAR Attending Unavailabl e SHAFFER , GUNNAR Admitting Unavailabl e CHARLOTTE BAKER Attending Unavailable Trung FERGUSON Attending Unavailable MARTY, Trung Frost Attending Unavailable Trung FERGUSON Attending Unavailable Trung [...] CHAVEZ Attending Unavailable GRACE VAZQUEZ Attending Unavailable [facility], DO Sam Primary Care Provider [phone] Eros, DO Sam Referring Provider [phone] MD Bertha Cuevas Attending Provider [phone] SAM COONEY LEN Primary Care Unav ailable RYAN COBB Admitting Unavailable RYAN COBB Attending Unavailable [place], [facility] Primary Care Unav ailable [facility], DO [place] Primary Care Provider [facility] DO Sam Referring Provider MD Bertha Cuevas Attending Provider DO Trung Armenta Emergency Provider [phone] KristianDO rupa Yazid Admit Provider DO Roslyn Townsend Attending Provider [phone] MD Verenice Mario Other Provider MD Vijay Aguilar Attending Provider [facility], [place] Referring Unavailable Bertha Cuevas Attending Unavailabl e Al-Marlara, Bertha Wangser Admitting Unavailabl e [facility], Sam Primary Care Unavailable Roslyn Townsend Admitting Unavailable Vijay Aguilar Attending Unavailable Verenice Mario Consulting Unavailable [facility], [place] Primary Care Unavailable Jessica Hernándeza Attending Unavailable Hernández, Za Admitting Unavailable [facility], [place] Primary Care Unavailable Jessica Hernándeza Attending Unavailable Hernández, Za Admitting Unavailable [facility], Sam Primary Care Unavailable Hernández, Za Admitting Unavailable Hernández Za Attending Unavailable [facility], Sam Primary Care Unavailable [facility], [place] Primary Care Unavailable Jessica Hernándeza Attending Unavailable Hernández, Za Admitting Unavailable Hardik-Bertha Pearce Attending Unavailabl e Al-Marrajaime, Endyd Yaser Admitting Unavailabl e [facility], Sam Primary Care Unavailable Unavailable Unavailable Unavailable Medications Current Medications Medication Drug Class(es) Dates Sig (Normalized) Sig (Original) acetaminophen 500 mg oral capsule (5 sources) Start: 03-05-2024 take 500 mg by mouth twice daily Acetaminophen Active 500 MG PO Twice daily March 05, 2024 12:00am Start: 08-28-2023 take 1 tablet by renny th every six hours as needed acetaminophen (Tylenol) [...] three times daily as needed for pain Vwykccimxm-NELH-Abephqna 50-325-40 MG Or al Tablet TAKE 1 TABLET 3 TIMES DAILY NEEDED FOR PAIN. Quantity: 0 Refills: 0 Ordered: 18-Jul-2021 DO Start : 18-Jan-2021 Active Start: 05-19-2019 butalbital-sadie taminophen-caffeine (FIORICET, ESGIC) 50-325-40 MG per tablet Take by mouth 0 05/19/2019 Active Start: 05-19-2019 End: 02-21-2024 Mnduuqtpxx-Ulnmzaaoolpuy-Iba f Discontinued 1 TAB PO As Directed May 19, 2019 12:00am February 21, 2024 2:58pm [id number] actuat albuterol 0.09 mg/actuat metered dose [...] by mouth every four hours as needed ltpphhmsfg-ssmgdms-qozjajon (Fiorinal) 50-325-40 mg capsule Take 1 capsule [...] capsule (20 sources) Serotonin Reuptake Inhibitor Start: take 40 mg by mouth once daily Fluoxetine Active 40 MG PO Daily February 21, 2024 12:00am Start: 01-21-2021 take 1 capsule by mo [facility] once daily FLUoxetine (PROzac) 20 mg [...] Active folic acid 1 mg oral tablet (13 sources) Start: 02-21-2024 take 1 mg by [...] weeks. if no improvement contact office., [id number], 175, cm, 01/23/23 14:14:00 EDT, Height/Length Dosing, 81, kg, 01/23/23 14:14:00 EDT, Weight Dosing Start Date: 01/23/23 Stop Date: 02/13/23 Status: Ordered lenalidomide 25 mg oral capsule (1 source) Thalidomide Analog Start: 03-07-2024 Lenalidomide (Revlimid) 25 mg capsule Active 25 MG PO Daily March 07, 2024 12:00am TAKE ONE DAILY FOR 21 DAYS AND 7 DAYS OFF.ADULT MALE AUTH#[id number] levothyroxine sodium 0.125 mg oral tablet (20 sources) l-Thyroxine take 1 tablet by mouth once daily before mealtime levothyroxine (Synthroid, Levoxyl) 125 mcg tablet Take 1 tablet (125 mcg) by mouth once daily in the morning. Take before meals. 0 Active levothyroxine (S ynthroid, Levoxyl) 50 MCG tablet Take 90 mcg by mouth. 0 Active take 1 capsule by mo [facility] once daily before breakfast Levothyroxine Sodium 125 [...] 29-Jul-2021 Active take 1 tablet by renny every six hours meclizine (Antivert) 25 MG tablet TAKE 1 TABLET BY MOUTH EVERY 6 HOURS NEEDD FOR 30 DAYS 0 Active memantine hydrochloride 10 mg oral tablet (13 sources) N-yntbij-E-aspartate Receptor Antagonist Start: 02-21-2024 take 10 mg [...] succinate 25 mg extended release oral tablet (14 sources) beta-Adrenergic Misael Start: 02-21-2024 take 25 [...] 17-Nov-2022 Active new start ondansetron 4 mg oral tablet (8 sources) Serotonin-3 Receptor Antagonist Start: 03-05-2024 Ondansetron Hcl Active 4 MG PO .Q8 March 05, 2024 12:00am ondansetron ODT (Zofran-ODT) 4 MG disintegrating tablet 1 (one) time [...] 40 mg QUEtiapine 25 mg oral tablet (3 sources) Atypical Antipsychotic Start: 02-21-2024 take 0.5 tablet [...] Refills(s) 0 Start Date: 07/09/23 Status: Ordered thyroid (fdc) 90 mg oral tablet (20 sources) Start: 02-27-2020 take 1 tablet by mouth once daily in the morning Thyroid (Pork) (Stanford Thyroid) 90 mg tablet Active 90 MG PO Every morning February 27, 2020 12:00am Start: 12-29-2019 Stanford Thyroid Oral, Daily, Refills(s) 0 Start Date: [...] PO Daily February 21, 2024 12:00am Start: 10-16-2023 take 1 capsule by mo [facility] every twenty-four hours in the morning tolterodine LA (Detrol LA) 2 MG 24 hr capsule Take 2 mg by mouth in the morning. 0 07/09/2023 Active Start: 01-23-2022 take 1 capsule by [facility] every other day tolterodine 4 mg Cap-ER 4 mg = 1 cap(s), Oral, Every other day, # 30 cap(s), Refills(s) 6, Pharmacy: [id number], 175, cm, 01/23/22 13:07:00 EDT, Height/Length Dosing, 83, kg, 01/23/22 13:07:00 EDT, Weight Dosing Start Date: 01/23/22 Status: Ordered Start: 01-23-2022 take 1 capsule by mouth once d aily tolterodine 4 mg Cap-ER 4 mg = 1 cap(s), Oral, Daily, # 30 cap(s), Refills(s) 6, Pharmacy: [facility]/pharmacy #[id number], 175, cm, 01/23/22 13:07:00 EDT, Height/Length Dosing, 83, kg, 01/23/22 13:07:00 EDT, Weight Dosing Start Date: 01/23/22 Status: Ordered Start: 09-27-2020 tolterodine 2 mg Cap-ER 2 mg = 1 cap(s), Oral, As Directed, Take one cap in the morning and one at dinnertime., # 60 cap(s), Refills(s) 11, Pharmacy: [facility]/pharmacy #[id number], 175, cm, 12/03/23 15:27:00 EDT, Height/Length Dosing, 80, kg, 12/03/23 15:27:00 EDT, Weight Dosing Start Date: 12/03/23 Status: Ordered traMADol hydrochloride 50 mg oral [...] Active vitamin b12 1 mg oral capsule (11 sources) Vitamin B12 Start: 02-21-2024 take 1000 [...] DAILY. Quantity: 90 Refills: 3 Ordered: 19-Sep-2022 Edgar BETANCOURT [facility] Start : 29-Apr-2020 Active Start: 02-27-2020 End: [...] 02/05/2023 08/28/2023 Discontinued (Entered in Error) amoxicillin (Geneva xil) 500 mg capsule Take 1 capsule [...] procedure, # 2 tab(s), Refills(s) 0, Pharmacy: [facility]/pharmacy #[id number], 175, cm, 01/23/22 13:07:00 EDT, Height/Length [...] Active dicyclomine hydrochloride 20 mg oral tablet (15 sources) Anticholinergic Start: 05-19-2019 End: 04-07-2020 take [...] Apply as needed prior to self dilation, [facility]/pharm[facility] #[id number], 175, cm, 11/03/22 13:03:00 EST, Height/Length Dosing, 82.8, kg, 11/03/22 13:03:00 EST, Weight Dosing Start Date: 12/01/22 Stop Date: 12/01/22 Status: Ordered Start: 12-01-2022 End: 12-01-2022 Glydo 2% topical gel with ap plicator 11 mL 0.2 gm, 10 mL, Topical, As Directed, 30 mL, Refill(s) 6, Apply as needed prior to self dilation, [facility]pharm[facility] #[id number], 175, cm, 11/03/22 13:03:00 EST, Height/Length Dosing, 82.8, kg, 11/03/22 13:03:00 EST, Weight Dosing Start Date: 12/01/22 Stop Date: 12/01/22 Status: Ordered Start: 12-01-2022 End: 12-01-2022 Glydo 2% topical gel with ap plicator 11 mL 0.2 gm, 10 mL, Topical, As Directed, 30 mL, Refill(s) 6, Apply as needed prior to self dilation, [facility]pharmacy #[id number], 175, cm, 11/03/22 13:03:00 EST, Height/Length Dosing, 82.8, kg, 11/03/22 13:03:00 EST, Weight Dosing Start Date: 12/01/22 Stop Date: 12/01/22 Status: Ordered Start: 12-01-2022 End: 12-01-2022 Glydo 2% topical gel with ap plicator 11 mL 0.2 gm, 10 mL, Topical, As Directed, 30 mL, Refill(s) 6, Apply as needed prior to self dilation, [facility]pharm[facility] #[id number], 175, cm, 11/03/22 13:03:00 EST, Height/Length [...] 19, 2019 12:00am February 27, 2020 4:19pm tamsulosin hydrochloride 0.4 mg oral capsule (20 sources) alpha-Adrenergic Misael Start: 01-20-2020 End: 03-05-2024 take 0.4 mg by mouth twice daily Tamsulosin Discontinued 0.4 MG PO Twice daily April 07, 2020 12:00am March 05, 2024 6:44pm Thyroid (Pork) (Stanford Thyroid) 90 mg tablet (2 sources) Start: 02-27-2020 End: 03-05-2024 take 1 tablet by mouth once daily in the morning Thyroid (Pork) (Stanford Thyroid) 90 mg tablet Discontinued 90 MG PO Every morning February 27, 2020 12:00am March 05, 2024 6:44pm Vitamin B-12 TABS (2 sources) Vitamin B-12 [...] bradycardia; Translations: [Other specified cardiac dysrhythmias] Episodic Coagulation and hemorrhagic disorders (9 sources) Chronic idiopathic thrombocytopenic purpura; Translations: [Immune thrombocytopenic purpura] Onset: 4 02-21-2024 Chronic Coronary atherosclerosis and other heart disease (19 sources) History of myocardial infarction; Translations: [Old myocardial infarction] Onset: 2 12-29-2019 Chronic Deficiency and other anemia (4 sources) Pancytopenia; Translations: [Other pancytopenia] 02-21-2024 Chronic Deficiency and other anemia (5 sources) Other pancytopenia; Translations: [Other pancytopenia] Onset: 4 02-21-2024 Chronic Deficiency and other anemia (6 sources) Anemia; Translations: [Anemia, unspecified] 02-21-2024 Episodic Deficiency and other anemia (5 sources) Anemia, unspecified; Translations: [Anemia, unspecified] Onset: 4 02-21-2024 Episodic Delirium, dementia, and amnestic and other cognitive disorders (4 sources) Alzheimer's disease; Translations: [Alzheimer's disease, unspecified] Onset: 4 03-07-2024 Chronic Diseases of white blood cells (6 sources) Leukopenia; Translations: [Decreased white blood cell count, unspecified] Onset: 4 02-21-2024 Chronic Disorders of lipid metabolism (20 sources) Mixed [...] prostatitis; Translations: [CHRONIC PROSTATITIS] Onset: 2 Chronic Maintenance chemotherapy; radiotherapy (3 sources) Patient encounter status; Translations: [Encounter for antineoplastic chemotherapy] Onset: 4 03-07-2024 Chronic Mood disorders (7 sources) Major depressive disorder, single episode, unspecified; Translations: [Mood disorder] Onset: 2 10-22-2023 Chronic Multiple myeloma (5 sources) Multiple myeloma; Translations: [Multiple myeloma not having achieved remission] Onset: 4 03-05-2024 Chronic Osteoarthritis (5 sources) Arthritis of right acromioclavicular joint; Translations: [Primary osteoarthritis, right shoulder] Onset: 3 09-11-2023 Chronic Other aftercare (14 sources) Treatment changed; Translations: [Long-term (current) use of other medications] Episodic Other aftercare (20 sources) Drug therapy finding; Translations: [Long-term (current) use of other medications] Episodic Other and unspecified benign neoplasm (15 sources) History of polyp of colon; Translations: [Personal history of colonic polyps] 08-27-2019 Episodic Other circulatory disease (20 sources) History of cardiovascular surgery; Translations: [Other specified cardiac device in situ] Onset: 3 08-10-2023 Chronic Other circulatory disease (20 sources) Presence of other cardiac implants and grafts; Translations: [Implantable loop recorder present] Onset: 3 08-10-2023 Chronic Other circulatory disease (9 sources) H/O: atrial fibrillation; Translations: [Atrial fibrillation] Episodic Other circulatory disease (6 sources) Low blood pressure; Translations: [Hypotension, unspecified] 03-05-2024 Episodic Other circulatory disease (4 sources) Orthostatic hypotension; Translations: [Orthostatic hypotension] Episodic Other circulatory disease (3 sources) Hypotension, unspecified; Translations: [Hypotension, unspecified] Onset: 4 03-05-2024 Episodic Other connective tissue disease (2 sources) Recurrent falls ; Translations: [History of fall] Episodic Other diseases of bladder and urethra (5 sources) Male urethral stricture; Translations: [Unspecified urethral stricture, male, unspecified site] Onset: 3 Episodic Other diseases of bladder and urethra (8 sources) Urethral stricture; Translations: [Unspecified urethral stricture, male, unspecified site] Onset: 3 11-03-2022 Episodic Other diseases of kidney and ureters (2 sources) Acute renal insufficiency; Translations: [Disorder of kidney and ureter, unspecified] 02-21-2024 Episodic Other diseases of kidney and ureters (5 sources) Disorder of kidney and ureter, unspecified; Translations: [Unspecified disorder of kidney and ureter] Onset: 4 02-21-2024 Episodic Other ear and sense organ disorders (1 source) Sensorineural hearing loss, bilateral; Translations: [Sensorineural hearing loss, bilateral] Onset: 3 07-31-2023 Chronic Other gastrointestinal disorders (1 source) Irritable bowel syndrome without diarrhea; Translations: [IRRITABLE BOWEL SYND W/O DIARRHEA] Onset: 2 Chronic Other gastrointestinal disorders (1 source) Irritable bowel syndrome; Translations: [Irritable bowel syndrome without diarrhea] Onset: 3 07-31-2023 Chronic Other hematologic conditions (2 sources) Protein level - finding; Translations: [Other specified abnormalities of plasma proteins] 02-21-2024 Episodic Other hematologic conditions (3 sources) Other specified abnormalities of plasma proteins; Translations: [Other nonspecific findings on examination of blood] Onset: 4 02-21-2024 Episodic Other inflammatory condition of skin (7 sources) [...] Episodic Other nutritional; endocrine; and metabolic disorders (2 sources) Hypercalcemia; Translations: [Hypercalcemia] 02-27-2024 Chronic Other nutritional; endocrine; and metabolic disorders (3 sources) Hypercalcemia; Translations: [Hypercalcemia] Onset: 4 03-05-2024 Chronic Other nutritional; endocrine; and metabolic disorders (16 [...] secondary to d ocumentation in Social History. Syncope (4 sources) Syncope; Translations: [Syncope and collapse] 03-05-2024 Episodic Thyroid disorders (1 source) Hypothyroidism, unspecified; Translations: [...] Onset: 06-15-2022 11-06-2022 Other aftercare (1 source) detention (current) use of anticoagulants; Translations: [PENITENTIARY CURRNT USE ANTICOAGULANTS] Onset: 09-07-2022 Episodic Other aftercare (1 source) medical terminologist (current) use of aspirin; Translations: [BORING MACHINE SET UP OPERATOR CURRENT USE OF ASPIRIN] Onset: 09-07-2022 Episodic Other aftercare (1 source) Other superintendent container terminal (current) drug therapy; Translations: [OTH BORING MACHINE SET UP OPERATOR CURRENT DRUG THERAPY] Onset: 09-07-2022 Episodic Other [...] Test Name Value Interpretation Reference Range Facility Alanine aminotransferase [En zymatic activity/volume] in Serum or PlasmaOrdered By: Vijay Aguilar on 03-09-2024 ALT [Catalytic activity/Vol] 10 U/L Normal 7-52 [facility] Comment on above: Performed By: #### P TT, BMP, HS TROP, PT, CK, BNP, DIFF CBC #### [facility] [address] [place] [address] [place] Albumin [Mass/volume] in Ser um or Plasma by Bromocresol green (BCG) dye binding methoOrdered By: Vijay Aguilar on 03-09-2024 Albumin BCG dye [Mass/Vol] 2.7 g/dL 3.5-5.7 [facility] Alkaline phosphatase [Enzyma tic activity/volume] in Serum or PlasmaOrdered By: Vijay Aguilar on 03-09-2024 ALP [Catalytic activity/Vol] 50 U/L Normal 34-104 [facility] Comment on above: Performed By: #### P TT, BMP, HS TROP, PT, CK, BNP, DIFF CBC #### [address] Anisocytosis [Presence] in B lood by Light microscopyOrdered By: Roslyn Townsend on 03-09-2024 Anisocytosis Ql (Bld) Slight Normal [facility] Comment on above: Performed By: #### P TT, BMP, HS TROP, PT, CK, BNP, DIFF CBC #### [place] [address] [place] Aspartate aminotransferase [ Enzymatic activity/volume] in Serum or PlasmaOrdered By: Vijay Aguilar on 03-09-2024 AST [Catalytic activity/Vol] 11 U/L Low 13-39 [facility] Comment on above: Performed By: #### P TT, BMP, HS TROP, PT, CK, BNP, DIFF CBC #### [place] [address] [place] Basophils Auto (Bld) [#/Vol] Ordered By: Roslyn Townsend on 03-09-2024 Basophils (Bld) [#/Vol] N/A [facility] Basophils/100 WBC Auto (Bld) Ordered By: Roslyn Townsend on 03-09-2024 Basophils/100 WBC (Bld) N/A [facility] Basophils/100 leukocytes in Blood by Manual countOrdered By: Roslyn Townsend on 03-09-2024 Basophils/100 WBC (Bld) 0 % Normal 0-2 [facility] Comment on above: Performed By: #### P TT, BMP, HS TROP, PT, CK, BNP, DIFF CBC #### [facility] [address] [place] [address] [place] Bilirubin.total [Mass/volume ] in Serum or PlasmaOrdered By: Vijay Aguilar on 03-09-2024 Bilirubin [Mass/Vol] 0.5 mg/dL Normal 0.3-1.0 [facility] Comment on above: Performed By: #### P TT, BMP, HS TROP, PT, CK, BNP, DIFF CBC #### [facility] [address] [place] [address] [place] Calcium [Mass/volume] in Ser um or PlasmaOrdered By: Vijay Aguilar on 03-09-2024 Calcium [Mass/Vol] 7.7 mg/dL Low 8.6-10.3 [facility] Comment on above: Performed By: #### P TT, BMP, HS TROP, PT, CK, BNP, DIFF CBC #### [facility] [address] [place] [address] [place] Carbon dioxide, total [Moles /volume] in Serum or PlasmaOrdered By: Vijay Aguilar on 03-09-2024 CO2 [Moles/Vol] 19.1 mmol/L Low 21.0-31.0 [facility] Comment on above: Performed By: #### P TT, BMP, HS TROP, PT, CK, BNP, DIFF CBC #### [facility] [address] [place] [address] [place] Chloride [Moles/volume] in S dustin or PlasmaOrdered By: Vijay Aguilar on 03-09-2024 Chloride [Moles/Vol] 107 mmol/L Normal 98-107 [facility] Comment on above: Performed By: #### P TT, BMP, HS TROP, PT, CK, BNP, DIFF CBC #### [facility] [address] Comprehensive Metabolic Pane melvin 03-09-2024 Albumin [Mass/Vol] 2.7 g/dL Low 3.5-5.7 [facility] Comment on above: Performed By: #### P TT, BMP, HS TROP, PT, CK, BNP, DIFF CBC #### [facility] [address] Creatinine Clr Calc Pharmacy 59.85 Normal [facility] Comment on above: Performed By: #### P TT, BMP, HS TROP, PT, CK, BNP, DIFF CBC #### [facility] [address] GFR/1.73 sq M.predicted MDRD (S/P/Bld) [Vol rate/Area] mL/min/{1.73_m2} Normal [facility] Comment on above: Performed By: #### P TT, BMP, HS TROP, PT, CK, BNP, DIFF CBC #### [address] Creatinine [Mass/volume] in Serum or PlasmaOrdered By: Vijay Aguilar on 03-09-2024 Creatinine [Mass/Vol] 1.05 mg/dL Normal 0.70-1.30 [facility] Comment on above: Performed By: #### P TT, BMP, HS TROP, PT, CK, BNP, DIFF CBC #### [facility] [address] Diff and CBCon 03-09-2024 Macrocytosis Slight Normal [facility] Comment on above: Performed By: #### P TT, BMP, HS TROP, PT, CK, BNP, DIFF CBC #### [facility] [address] [place] [address] Mean Corpuscular HGB Conc 35.4 g/dL Normal 32.5-35.6 [facility] Comment on above: Performed By: #### P TT, BMP, HS TROP, PT, CK, BNP, DIFF CBC #### [address] Other Cell Type 5 % High 0-0 [facility] Comment on above: Result Comment: PLAS MACYTOID LYMPHOCYTE Performed By: #### P TT, BMP, HS TROP, PT, CK, BNP, DIFF CBC #### [address] Platelet Estimate Decreased Normal Normal [facility] Comment on above: Performed By: #### P TT, BMP, HS TROP, PT, CK, BNP, DIFF CBC #### [address] Platelet Morphology Normal Normal Normal [facility] Comment on above: Result Comment: PERF ORMED BY: [place] [address] PATHOLOGIST COMPUTER MECHANIC OTTO HARLEY M.D. Performed By: #### P TT, BMP, HS TROP, PT, CK, BNP, DIFF CBC #### [address] Poikilocytosis Slight Normal [facility] Comment on above: Performed By: #### P TT, BMP, HS TROP, PT, CK, BNP, DIFF CBC #### [address] Rouleaux Moderate Normal [facility] Comment on above: Performed By: #### P TT, BMP, HS TROP, PT, CK, BNP, DIFF CBC #### [address] Eosinophils Auto (Bld) [#/Vo l]Ordered By: Roslyn Townsend on 03-09-2024 Eosinophils (Bld) [#/Vol] N/A [facility] Eosinophils/100 WBC Auto (Bl d)Ordered By: Roslyn Townsend on 03-09-2024 Eosinophils/100 WBC (Bld) N/A [facility] Eosinophils/100 leukocytes i n Blood by Manual countOrdered By: Roslyn Townsend on 03-09-2024 Eosinophils/100 WBC (Bld) 3 % Normal 1-3 [facility] Comment on above: Performed By: #### P TT, BMP, HS TROP, PT, CK, BNP, DIFF CBC #### [facility] [address] Erythrocyte distribution wid th [Ratio] by Automated countOrdered By: Roslyn Townsend on 03-09-2024 Erythrocyte distribution width (RBC) [Ratio] 20.7 % High 12.0-14.8 [facility] Comment on above: Performed By: #### P TT, BMP, HS TROP, PT, CK, BNP, DIFF CBC #### [facility] [address] Erythrocytes [#/volume] in B lood by Automated countOrdered By: Roslyn Townsend on 03-09-2024 RBC (Bld) [#/Vol] 2.68 10*6/uL Low 3.90-5.[address] [facility] Comment on above: Performed By: #### P TT, BMP, HS TROP, PT, CK, BNP, DIFF CBC #### [facility] [address] Glucose [Mass/volume] in Ser um or PlasmaOrdered By: Vijay Aguilar on 03-09-2024 Glucose [Mass/Vol] 97 mg/dL Normal 70-100 [facility] Comment on above: ADA recommended refe rence rangeRandom Glucose Reference Range is dependent on time and content of last meal. Glucose of more than 200 mg/dL in a nonstressed, ambulatory subject supports the diagnosis of Diabetes Mellitus. Result Comment: [employer] om Glucose Reference Range is dependent on time and content of last meal. Glucose of more than 200 mg/dL in a nonstressed, ambulatory subject supports the diagnosis of Diabetes Mellitus. ADA recommended reference range Performed By: #### P TT, BMP, HS TROP, PT, CK, BNP, DIFF CBC #### [facility] [address] [place] [address] [place] Hematocrit [Volume Fraction] of Blood by Automated countOrdered By: Roslyn Townsend on 03-09-2024 Hematocrit (Bld) [Volume fraction] 26.1 % Low 38.8-50.0 [facility] Comment on above: Performed By: #### P TT, BMP, HS TROP, PT, CK, BNP, DIFF CBC #### [facility] [address] Hemoglobin [Mass/volume] in BloodOrdered By: Roslyn Townsend on 03-09-2024 Hemoglobin (Bld) [Mass/Vol] 9.2 g/dL Low 13.0-17.0 [facility] Comment on above: Performed By: #### P TT, BMP, HS TROP, PT, CK, BNP, DIFF CBC #### [facility] [address] [place] [address] Leukocytes [#/volume] correc myrtle for nucleated erythrocytes in Blood by Automated counOrdered By: Roslyn Townsend on 03-09-2024 WBC corrected for nucl RBC Auto (Bld) [#/Vol] 2.8 10*3/uL 4.1-10.5 [facility] Leukocytes [#/volume] in Blo od by Automated countOrdered By: Roslyn Townsend on 03-09-2024 WBC (Bld) [#/Vol] 2.8 10*3/uL Low 4.1-10.5 [facility] Comment on above: Performed By: #### P TT, BMP, HS TROP, PT, CK, BNP, DIFF CBC #### [facility] [address] [place] [address] Lymphocytes Auto (Bld) [#/Vo l]Ordered By: Roslyn Townsend on 03-09-2024 Lymphocytes (Bld) [#/Vol] N/A [facility] Lymphocytes/100 WBC Auto (Bl d)Ordered By: Roslyn Phoenixsein on 03-09-2024 Lymphocytes/100 WBC (Bld) N/A [facility] Lymphocytes/100 leukocytes i n Blood by Manual countOrdered By: Roslyn Townsend on 03-09-2024 Lymphocytes/100 WBC (Bld) 57 % High 18-42 [facility] Comment on above: Performed By: #### P TT, BMP, HS TROP, PT, CK, BNP, DIFF CBC #### [facility] [address] MCH [Entitic mass] by Automa myrtle countOrdered By: Roslyn Townsend on 03-09-2024 MCH (RBC) [Entitic mass] 34.4 pg Normal 27.5-35.2 [facility] Comment on above: Performed By: #### P TT, BMP, HS TROP, PT, CK, BNP, DIFF CBC #### [facility] [address] MCHC Auto (RBC) [Mass/Vol]Or dered By: Roslyn Townsend on 03-09-2024 MCHC (RBC) [Mass/Vol] 35.4 g/dL 32.5-35.6 [facility] MCV [Entitic volume] by Auto mated countOrdered By: Roslyn Townsend on 03-09-2024 MCV (RBC) [Entitic vol] 97.2 fL Normal 83.5-101 [facility] Comment on above: Performed By: #### P TT, BMP, HS TROP, PT, CK, BNP, DIFF CBC #### [address] Macrocytes LM Ql (Bld)Ordere d By: Roslyn Townsend on 03-09-2024 Macrocytes Ql (Bld) Slight [facility] Magnesium [Mass/volume] in S dustin or PlasmaOrdered By: Vijay Aguilar on 03-09-2024 Magnesium [Mass/Vol] 1.7 mg/dL Low 1.9-2.7 [facility] Comment on above: Result Comment: PERF ORMED BY: [address] [place] [address] PATHOLOGIST COMPUTER MECHANIC OTTO HARLEY M.D. Performed By: #### P TT, BMP, HS TROP, PT, CK, BNP, DIFF CBC #### [address] Manual blood segmented neutr ophils/100 leukocytesOrdered By: Roslyn Townsend on 03-09-2024 Segmented neutrophils/100 WBC (Bld) 35 % Low 50-70 [facility] Comment on above: Performed By: #### P TT, BMP, HS TROP, PT, CK, BNP, DIFF CBC #### [facility] [address] [place] [address] [place] Monocytes Auto (Bld) [#/Vol] Ordered By: Roslyn Phoenixsein on 03-09-2024 Monocytes (Bld) [#/Vol] N/A [facility] Monocytes/100 WBC Auto (Bld) Ordered By: Roslyn Phoenixsein on 03-09-2024 Monocytes/100 WBC (Bld) N/A [facility] Monocytes/100 leukocytes in Blood by Manual countOrdered By: Roslyn Townsend on 03-09-2024 Monocytes/100 WBC (Bld) 0 % Low 2-11 [facility] Comment on above: Performed By: #### P TT, BMP, HS TROP, PT, CK, BNP, DIFF CBC #### [facility] [address] [place] [address] [place] Neutrophils Auto (Bld) [#/Vo l]Ordered By: Roslyn Llamasin on 03-09-2024 Neutrophils (Bld) [#/Vol] N/A [facility] Neutrophils/100 WBC Auto (Bl d)Ordered By: Roslyn Townsend on 03-09-2024 Neutrophils/100 WBC (Bld) N/A [facility] No Panel InformationOrdered By: Vijay Aguilar on 03-09-2024 Estimated GFR (CKD-EPI) > 60.0 mL/Min [facility] Creatinine Clearance (Chem 59.85 [facility] Nucleated erythrocytes [Pres ence] in Blood by Automated countOrdered By: Roslyn Townsend on 03-09-2024 Nucleated RBC Auto Ql (Bld) N/A [facility] Platelet adequacy [Presence] in Blood by Light microscopyOrdered By: Roslyn Townsend on 03-09-2024 Platelets LM Ql (Bld) Decreased Normal [facility] Platelet mean volume [Entiti c volume] in Blood by Automated countOrdered By: Roslyn Townsend on 03-09-2024 Platelet mean volume (Bld) [Entitic vol] 7.4 fL Normal 6.6-10.1 [facility] Comment on above: Performed By: #### P TT, BMP, HS TROP, PT, CK, BNP, DIFF CBC #### [facility] [address] Platelet morphology finding [Identifier] in BloodOrdered By: Roslyn Townsend on 03-09-2024 Platelet morphology finding Nom (Bld) Normal Normal [facility] Platelets [#/volume] in Bloo d by Automated countOrdered By: Roslyn Townsend on 03-09-2024 Platelets (Bld) [#/Vol] 62 10*3/uL Low 150-450 [facility] Comment on above: Performed By: #### P TT, BMP, HS TROP, PT, CK, BNP, DIFF CBC #### [facility] [address] [place] [address] [place] Poikilocytosis [Presence] in Blood by Light microscopyOrdered By: Roslyn Townsend on 03-09-2024 Poikilocytosis LM Ql (Bld) Slight [facility] Potassium [Moles/volume] in Serum or PlasmaOrdered By: Vijay Aguilar on 03-09-2024 Potassium [Moles/Vol] 3.3 mmol/L Low 3.5-5.1 [facility] Comment on above: Performed By: #### P TT, BMP, HS TROP, PT, CK, BNP, DIFF CBC #### [facility] [address] [place] [address] [place] Protein [Mass/volume] in Ser um or PlasmaOrdered By: Vijay Aguilar on 03-09-2024 Protein [Mass/Vol] 7.8 g/dL Normal 6.4-8.9 [facility] Comment on above: Performed By: #### P TT, BMP, HS TROP, PT, CK, BNP, DIFF CBC #### [facility] [address] [place] [address] [place] RBC morphologyOrdered By: Kathleen Townsend on 03-09-2024 RBC morphology finding Nom (Bld) N/A [facility] Rouleaux detectionOrdered By : Roslyn Townsend on 03-09-2024 Rouleaux LM Ql (Bld) Moderate [facility] Serum globulin measurement b y calculation (mass/volume)Ordered By: Vijay Aguilar on 03-09-2024 Globulin (S) [Mass/Vol] 5.1 g/dL [facility] Comment on above: Performed By: #### P TT, BMP, HS TROP, PT, CK, BNP, DIFF CBC #### [address] Serum or plasma albumin/glob ulin mass ratioOrdered By: Vijay Aguilar on 03-09-2024 Albumin/Globulin [Mass ratio] 0.5 {ratio} [facility] Comment on above: Performed By: #### P TT, BMP, HS TROP, PT, CK, BNP, DIFF CBC #### [facility] [address] [place] [address] Serum or plasma anion gap de terminationOrdered By: Vijay Aguilar on 03-09-2024 Anion gap [Moles/Vol] 13.2 mmol/L Normal 6.0-15.0 [facility] Comment on above: Performed By: #### P TT, BMP, HS TROP, PT, CK, BNP, DIFF CBC #### [address] Sodium [Moles/volume] in Ser um or PlasmaOrdered By: Vijay Aguilar on 03-09-2024 Sodium [Moles/Vol] 136 mmol/L Normal 136-145 [facility] Comment on above: Performed By: #### P TT, BMP, HS TROP, PT, CK, BNP, DIFF CBC #### [address] Urea nitrogen [Mass/volume] in Serum or PlasmaOrdered By: Vijay Aguilar on 03-09-2024 Urea nitrogen [Mass/Vol] 18 mg/dL Normal 7-25 [facility] Comment on above: Performed By: #### P TT, BMP, HS TROP, PT, CK, BNP, DIFF CBC #### [address] WBC other/100 WBC Manual cnt (Bld)Ordered By: Roslyn Townsend on 03-09-2024 WBC other/100 WBC (Bld) 5 % 0-0 [facility] Comment on above: PLASMACYTOID LYMPHOC YTE Basic Metabolic Panelon 02-22 Anion gap [Moles/Vol] 13.2 mmol/L Normal 6.0-15.0 [facility] Comment on above: Performed By: #### P TT, BMP, HS TROP, PT, CK, BNP, DIFF CBC #### [address] Calcium [Mass/Vol] 7.9 mg/dL Low 8.6-10.3 [facility] Comment on above: Performed By: #### P TT, BMP, HS TROP, PT, CK, BNP, DIFF CBC #### [address] Chloride [Moles/Vol] 106 mmol/L Normal 98-107 [facility] Comment on above: Performed By: #### P TT, BMP, HS TROP, PT, CK, BNP, DIFF CBC #### [address] CO2 [Moles/Vol] 18.6 mmol/L Low 21.0-31.0 [facility] Comment on above: Performed By: #### P TT, BMP, HS TROP, PT, CK, BNP, DIFF CBC #### [address] Creatinine [Mass/Vol] 1.01 mg/dL Normal 0.70-1.30 [facility] Comment on above: Performed By: #### P TT, BMP, HS TROP, PT, CK, BNP, DIFF CBC #### [address] Creatinine Clr Calc Pharmacy 62.22 Normal [facility] Comment on above: Result Comment: PERF ORMED BY: [place] [address] PATHOLOGIST COMPUTER MECHANIC OTTO HARLEY M.D. Performed By: #### P TT, BMP, HS TROP, PT, CK, BNP, DIFF CBC #### [facility] [address] GFR/1.73 sq M.predicted MDRD (S/P/Bld) [Vol rate/Area] mL/min/{1.73_m2} Normal [facility] Comment on above: Performed By: #### P TT, BMP, HS TROP, PT, CK, BNP, DIFF CBC #### [facility] [address] Glucose [Mass/Vol] 136 mg/dL High 70-100 [facility] Comment on above: Result Comment: [employer] Glucose Reference Range is dependent on time and content of last meal. Glucose of more than 200 mg/dL in a nonstressed, ambulatory subject supports the diagnosis of Diabetes Mellitus. ADA recommended reference range Performed By: #### P TT, BMP, HS TROP, PT, CK, BNP, DIFF CBC #### [address] Potassium [Moles/Vol] 3.8 mmol/L Normal 3.5-5.1 [facility] Comment on above: Performed By: #### P TT, BMP, HS TROP, PT, CK, BNP, DIFF CBC #### [address] Sodium [Moles/Vol] 134 mmol/L Low 136-145 [facility] Comment on above: Performed By: #### P TT, BMP, HS TROP, PT, CK, BNP, DIFF CBC #### [facility] [address] [place] [address] [place] Urea nitrogen [Mass/Vol] 21 mg/dL Normal 7-25 [facility] Comment on above: Performed By: #### P TT, BMP, HS TROP, PT, CK, BNP, DIFF CBC #### [facility] [address] Complete Blood Count Auto Di ffon 03-08-2024 Basophils (Bld) [#/Vol] 0.1 10*3/uL Normal 0.0-0.2 [facility] Comment on above: Result Comment: PERF ORMED BY: [place] [address] PATHOLOGIST COMPUTER MECHANIC OTTO HARLEY M.D. Performed By: #### P TT, BMP, HS TROP, PT, CK, BNP, DIFF CBC #### [address] Basophils/100 WBC (Bld) 3.2 % Normal . [facility] Comment on above: Performed By: #### P TT, BMP, HS TROP, PT, CK, BNP, DIFF CBC #### [address] Eosinophils (Bld) [#/Vol] 0.0 10*3/uL Normal 0.0-0.45 [facility] Comment on above: Performed By: #### P TT, BMP, HS TROP, PT, CK, BNP, DIFF CBC #### [address] Eosinophils/100 WBC (Bld) 0.1 % Normal . [facility] Comment on above: Performed By: #### P TT, BMP, HS TROP, PT, CK, BNP, DIFF CBC #### [address] Erythrocyte distribution width (RBC) [Ratio] 20.9 % High 12.0-14.8 [facility] Comment on above: Performed By: #### P TT, BMP, HS TROP, PT, CK, BNP, DIFF CBC #### [address] Hematocrit (Bld) [Volume fraction] 27.2 % Low 38.8-50.0 [facility] Comment on above: Performed By: #### P TT, BMP, HS TROP, PT, CK, BNP, DIFF CBC #### [address] Hemoglobin (Bld) [Mass/Vol] 9.5 g/dL Low 13.0-17.0 [facility] Comment on above: Performed By: #### P TT, BMP, HS TROP, PT, CK, BNP, DIFF CBC #### [address] Lymphocytes (Bld) [#/Vol] 0.7 10*3/uL Low 1.00-4.8 [facility] Comment on above: Performed By: #### P TT, BMP, HS TROP, PT, CK, BNP, DIFF CBC #### [address] Lymphocytes/100 WBC (Bld) 38.4 % Normal . [facility] Comment on above: Performed By: #### P TT, BMP, HS TROP, PT, CK, BNP, DIFF CBC #### [address] MCH (RBC) [Entitic mass] 33.9 pg Normal 27.5-35.2 [facility] Comment on above: Performed By: #### P TT, BMP, HS TROP, PT, CK, BNP, DIFF CBC #### [address] MCV (RBC) [Entitic vol] 97.4 fL Normal 83.5-101 [facility] Comment on above: Performed By: #### P TT, BMP, HS TROP, PT, CK, BNP, DIFF CBC #### [address] Mean Corpuscular HGB Conc 34.8 g/dL Normal 32.5-35.6 [facility] Comment on above: Performed By: #### P TT, BMP, HS TROP, PT, CK, BNP, DIFF CBC #### [address] Monocytes (Bld) [#/Vol] 0.0 10*3/uL Normal 0.0-0.8 [facility] Comment on above: Performed By: #### P TT, BMP, HS TROP, PT, CK, BNP, DIFF CBC #### [address] Monocytes/100 WBC (Bld) 1.0 % Normal . [facility] Comment on above: Performed By: #### P TT, BMP, HS TROP, PT, CK, BNP, DIFF CBC #### [address] Neutrophils (Bld) [#/Vol] 1.1 10*3/uL Low 1.8-7.7 [facility] Comment on above: Performed By: #### P TT, BMP, HS TROP, PT, CK, BNP, DIFF CBC #### [address] Neutrophils/100 WBC (Bld) 57.3 % Normal . [facility] Comment on above: Performed By: #### P TT, BMP, HS TROP, PT, CK, BNP, DIFF CBC #### [address] NRBC% 0.3 /100{WBC} Normal 0-0.5 [facility] Comment on above: Performed By: #### P TT, BMP, HS TROP, PT, CK, BNP, DIFF CBC #### [address] Platelet mean volume (Bld) [Entitic vol] 7.3 fL Normal 6.6-10.1 [facility] Comment on above: Performed By: #### P TT, BMP, HS TROP, PT, CK, BNP, DIFF CBC #### [place] [address] [place] Platelets (Bld) [#/Vol] 59 10*3/uL Low 150-450 [facility] Comment on above: Performed By: #### P TT, BMP, HS TROP, PT, CK, BNP, DIFF CBC #### [place] [address] [place] RBC (Bld) [#/Vol] 2.79 10*6/uL Low 3.90-5.60 [facility] Comment on above: Performed By: #### P TT, BMP, HS TROP, PT, CK, BNP, DIFF CBC #### [place] [address] WBC (Bld) [#/Vol] 1.8 10*3/uL Low 4.1-10.5 [facility] Comment on above: Performed By: #### P TT, BMP, HS TROP, PT, CK, BNP, DIFF CBC #### [address] Basic Metabolic Panelon 06- Anion gap [Moles/Vol] 12.4 mmol/L Normal 6.0-15.0 [facility] Comment on above: Performed By: #### P TT, BMP, HS TROP, PT, CK, BNP, DIFF CBC #### [address] Calcium [Mass/Vol] 8.3 mg/dL Low 8.6-10.3 [facility] Comment on above: Performed By: #### P TT, BMP, HS TROP, PT, CK, BNP, DIFF CBC #### [address] Chloride [Moles/Vol] 107 mmol/L Normal 98-107 [facility] Comment on above: Performed By: #### P TT, BMP, HS TROP, PT, CK, BNP, DIFF CBC #### [address] CO2 [Moles/Vol] 20.5 mmol/L Low 21.0-31.0 [facility] Comment on above: Performed By: #### P TT, BMP, HS TROP, PT, CK, BNP, DIFF CBC #### [address] Creatinine [Mass/Vol] 1.02 mg/dL Normal 0.70-1.30 [facility] Comment on above: Performed By: #### P TT, BMP, HS TROP, PT, CK, BNP, DIFF CBC #### [address] Creatinine Clr Calc Pharmacy 61.61 Normal [facility] Comment on above: Result Comment: PERF ORMED BY: [address] [address] PATHOLOGIST COMPUTER MECHANIC OTTO HARLEY M.D. Performed By: #### P TT, BMP, HS TROP, PT, CK, BNP, DIFF CBC #### [facility] [address] GFR/1.73 sq M.predicted MDRD (S/P/Bld) [Vol rate/Area] mL/min/{1.73_m2} Normal [facility] Comment on above: Performed By: #### P TT, BMP, HS TROP, PT, CK, BNP, DIFF CBC #### [facility] [address] Glucose [Mass/Vol] 92 mg/dL Normal 70-100 [facility] Comment on above: Result Comment: [employer] Glucose Reference Range is dependent on time and content of last meal. Glucose of more than 200 mg/dL in a nonstressed, ambulatory subject supports the diagnosis of Diabetes Mellitus. ADA recommended reference range Performed By: #### P TT, BMP, HS TROP, PT, CK, BNP, DIFF CBC #### [facility] [address] Potassium [Moles/Vol] 3.9 mmol/L Normal 3.5-5.1 [facility] Comment on above: Performed By: #### P TT, BMP, HS TROP, PT, CK, BNP, DIFF CBC #### [facility] [address] [place] [address] [place] Sodium [Moles/Vol] 136 mmol/L Normal 136-145 [facility] Comment on above: Performed By: #### P TT, BMP, HS TROP, PT, CK, BNP, DIFF CBC #### [facility] [address] [place] [address] [place] Urea nitrogen [Mass/Vol] 17 mg/dL Normal 7-25 [facility] Comment on above: Performed By: #### P TT, BMP, HS TROP, PT, CK, BNP, DIFF CBC #### [facility] [address] [place] [address] [place] Magnesiumon 03-07-2024 Magnesium [Mass/Vol] 1.6 mg/dL Low 1.9-2.7 [facility] Comment on above: Result Comment: PERF ORMED BY: [place] [address] PATHOLOGIST COMPUTER MECHANIC OTTO HARLEY M.D. Performed By: #### P TT, BMP, HS TROP, PT, CK, BNP, DIFF CBC #### [address] Scan and CBCon 03-07-2024 Anisocytosis Ql (Bld) Marked Normal [facility] Comment on above: Performed By: #### P TT, BMP, HS TROP, PT, CK, BNP, DIFF CBC #### [address] Basophils (Bld) [#/Vol] 0.0 10*3/uL Normal 0.0-0.2 [facility] Comment on above: Performed By: #### P TT, BMP, HS TROP, PT, CK, BNP, DIFF CBC #### [address] Basophils/100 WBC (Bld) 0.3 % Normal . [facility] Comment on above: Performed By: #### P TT, BMP, HS TROP, PT, CK, BNP, DIFF CBC #### [address] Eosinophils (Bld) [#/Vol] 0.2 10*3/uL Normal 0.0-0.45 [facility] Comment on above: Performed By: #### P TT, BMP, HS TROP, PT, CK, BNP, DIFF CBC #### [address] Eosinophils/100 WBC (Bld) 10.7 % Normal . [facility] Comment on above: Performed By: #### P TT, BMP, HS TROP, PT, CK, BNP, DIFF CBC #### [address] Erythrocyte distribution width (RBC) [Ratio] 21.1 % High 12.0-14.8 [facility] Comment on above: Performed By: #### P TT, BMP, HS TROP, PT, CK, BNP, DIFF CBC #### [address] Hematocrit (Bld) [Volume fraction] 26.4 % Low 38.8-50.0 [facility] Comment on above: Performed By: #### P TT, BMP, HS TROP, PT, CK, BNP, DIFF CBC #### [address] Hemoglobin (Bld) [Mass/Vol] 9.3 g/dL Low 13.0-17.0 [facility] Comment on above: Performed By: #### P TT, BMP, HS TROP, PT, CK, BNP, DIFF CBC #### [address] Lymphocytes (Bld) [#/Vol] 1.0 10*3/uL Normal 1.00-4.8 [facility] Comment on above: Performed By: #### P TT, BMP, HS TROP, PT, CK, BNP, DIFF CBC #### [address] Lymphocytes/100 WBC (Bld) 49.0 % Normal . [facility] Comment on above: Performed By: #### P TT, BMP, HS TROP, PT, CK, BNP, DIFF CBC #### [address] MCH (RBC) [Entitic mass] 34.3 pg Normal 27.5-35.2 [facility] Comment on above: Performed By: #### P TT, BMP, HS TROP, PT, CK, BNP, DIFF CBC #### [address] MCV (RBC) [Entitic vol] 97.4 fL Normal 83.5-101 [facility] Comment on above: Performed By: #### P TT, BMP, HS TROP, PT, CK, BNP, DIFF CBC #### [address] Mean Corpuscular HGB Conc 35.2 g/dL Normal 32.5-35.6 [facility] Comment on above: Performed By: #### P TT, BMP, HS TROP, PT, CK, BNP, DIFF CBC #### [address] Monocytes (Bld) [#/Vol] 0.0 10*3/uL Normal 0.0-0.8 [facility] Comment on above: Performed By: #### P TT, BMP, HS TROP, PT, CK, BNP, DIFF CBC #### [address] Monocytes/100 WBC (Bld) 1.2 % Normal . [facility] Comment on above: Performed By: #### P TT, BMP, HS TROP, PT, CK, BNP, DIFF CBC #### [address] Neutrophils (Bld) [#/Vol] 0.8 10*3/uL Low 1.8-7.7 [facility] Comment on above: Performed By: #### P TT, BMP, HS TROP, PT, CK, BNP, DIFF CBC #### [address] Neutrophils/100 WBC (Bld) 38.8 % Normal . [facility] Comment on above: Performed By: #### P TT, BMP, HS TROP, PT, CK, BNP, DIFF CBC #### [address] NRBC% 0.5 /100{WBC} Normal 0-0.5 [facility] Comment on above: Performed By: #### P TT, BMP, HS TROP, PT, CK, BNP, DIFF CBC #### [address] Platelet Estimate Decreased Normal Normal [facility] Comment on above: Performed By: #### P TT, BMP, HS TROP, PT, CK, BNP, DIFF CBC #### [address] Platelet mean volume (Bld) [Entitic vol] 7.1 fL Normal 6.6-10.1 [facility] Comment on above: Performed By: #### P TT, BMP, HS TROP, PT, CK, BNP, DIFF CBC #### [address] Platelet Morphology Normal Normal Normal [facility] Comment on above: Result Comment: PERF ORMED BY: [place] [address] PATHOLOGIST COMPUTER MECHANIC OTTO HARLEY M.D. Performed By: #### P TT, BMP, HS TROP, PT, CK, BNP, DIFF CBC #### [address] Platelets (Bld) [#/Vol] 60 10*3/uL Low 150-450 [facility] Comment on above: Performed By: #### P TT, BMP, HS TROP, PT, CK, BNP, DIFF CBC #### [address] RBC (Bld) [#/Vol] 2.71 10*6/uL Low 3.90-5.60 [facility] Comment on above: Performed By: #### P TT, BMP, HS TROP, PT, CK, BNP, DIFF CBC #### [address] Rouleaux Slight Normal [facility] Comment on above: Performed By: #### P TT, BMP, HS TROP, PT, CK, BNP, DIFF CBC #### [address] WBC (Bld) [#/Vol] 2.0 10*3/uL Low 4.1-10.5 [facility] Comment on above: Performed By: #### P TT, BMP, HS TROP, PT, CK, BNP, DIFF CBC #### [address] Basic Metabolic Panelon 06- Anion gap [Moles/Vol] 13.3 mmol/L Normal 6.0-15.0 [facility] Comment on above: Performed By: #### B MP #### [address] Calcium [Mass/Vol] 8.7 mg/dL Normal 8.6-10.3 [facility] Comment on above: Performed By: #### B MP #### [address] Chloride [Moles/Vol] 109 mmol/L High 98-107 [facility] Comment on above: Performed By: #### B MP #### [address] CO2 [Moles/Vol] 20.9 mmol/L Low 21.0-31.0 [facility] Comment on above: Performed By: #### B MP #### [address] Creatinine [Mass/Vol] 1.32 mg/dL Significan t change up 0.70-1.30 [facility] Comment on above: Performed By: #### B MP #### [address] Creatinine Clr Calc Pharmacy 47.61 Normal [facility] Comment on above: Result Comment: PERF ORMED BY: [place] [address] PATHOLOGIST COMPUTER MECHANIC OTTO HARLEY M.D. Performed By: #### B MP #### [address] GFR/1.73 sq M.predicted MDRD (S/P/Bld) [Vol rate/Area] 55.900 mL/min/{1.73_m2} Normal [facility] Comment on above: Performed By: #### B MP #### [address] Glucose [Mass/Vol] 91 mg/dL Normal 70-100 [facility] Comment on above: Result Comment: [employer] Glucose Reference Range is dependent on time and content of last meal. Glucose of more than 200 mg/dL in a nonstressed, ambulatory subject supports the diagnosis of Diabetes Mellitus. ADA recommended reference range Performed By: #### B MP #### [address] Potassium [Moles/Vol] 4.2 mmol/L Normal 3.5-5.1 [facility] Comment on above: Performed By: #### B MP #### [address] Sodium [Moles/Vol] 139 mmol/L Normal 136-145 [facility] Comment on above: Performed By: #### B MP #### [address] Urea nitrogen [Mass/Vol] 28 mg/dL High 7-25 [facility] Comment on above: Performed By: #### B MP #### [address] Diff and CBCon 03-06-2024 Anisocytosis Ql (Bld) Marked Normal [facility] Comment on above: Performed By: #### D IFF CBC ####[address] Eosinophils/100 WBC (Bld) 7 % High 1-3 [facility] Comment on above: Performed By: #### D IFF CBC ####[address] Erythrocyte distribution width (RBC) [Ratio] 21.8 % High 12.0-14.8 [facility] Comment on above: Performed By: #### D IFF CBC ####[address] Hematocrit (Bld) [Volume fraction] 27.3 % Low 38.8-50.0 [facility] Comment on above: Performed By: #### D IFF CBC ####[address] Hemoglobin (Bld) [Mass/Vol] 9.4 g/dL Low 13.0-17.0 [facility] Comment on above: Performed By: #### D IFF CBC ####[place] [address] [place] Lymphocytes/100 WBC (Bld) 65 % High 18-42 [facility] Comment on above: Performed By: #### D IFF CBC ####[address] MCH (RBC) [Entitic mass] 34.0 pg Normal 27.5-35.2 [facility] Comment on above: Performed By: #### D IFF CBC ####[address] MCV (RBC) [Entitic vol] 98.5 fL Normal 83.5-101 [facility] Comment on above: Performed By: #### D IFF CBC ####[address] Mean Corpuscular HGB Conc 34.5 g/dL Normal 32.5-35.6 [facility] Comment on above: Performed By: #### D IFF CBC ####[address] Monocytes/100 WBC (Bld) 1 % Low 2-11 [facility] Comment on above: Performed By: #### D IFF CBC ####[address] Platelet Estimate Decreased Normal Normal [facility] Comment on above: Performed By: #### D IFF CBC ####[address] Platelet mean volume (Bld) [Entitic vol] 6.7 fL Normal 6.6-10.1 [facility] Comment on above: Result Comment: PERF ORMED BY: [address] [place] [address] PATHOLOGIST COMPUTER MECHANIC OTTO HARLEY M.D. Performed By: #### D IFF CBC ####[address] Platelet Morphology Normal Normal Normal [facility] Comment on above: Result Comment: PERF ORMED BY: [facility] [address] [facility] [place] [address] PATHOLOGIST COMPUTER MECHANIC OTTO HARLEY M.D. Performed By: #### D IFF CBC ####[address] Platelets (Bld) [#/Vol] 60 10*3/uL Low 150-450 [facility] Comment on above: Performed By: #### D IFF CBC ####[address] RBC (Bld) [#/Vol] 2.78 10*6/uL Low 3.90-5.60 [facility] Comment on above: Performed By: #### D IFF CBC ####[address] Rouleaux Slight Normal [facility] Comment on above: Performed By: #### D IFF CBC ####[address] Segmented neutrophils/100 WBC (Bld) 26 % Low 50-70 [facility] Comment on above: Performed By: #### D IFF CBC ####[address] WBC (Bld) [#/Vol] 1.9 10*3/uL Low 4.1-10.5 [facility] Comment on above: Performed By: #### D IFF CBC ####[address] Hemoglobin and Hematocriton 03-06-2024 Hematocrit (Bld) [Volume fraction] 26.0 % Low 38.8-50.0 [facility] Comment on above: Result Comment: PERF ORMED BY: [facility] [address] [place] [address] PATHOLOGIST COMPUTER MECHANIC OTTO HARLEY M.D. Performed By: #### P TT, BMP, HS TROP, PT, CK, BNP, DIFF CBC #### [address] Hemoglobin (Bld) [Mass/Vol] 8.9 g/dL Low 13.0-17.0 [facility] Comment on above: Performed By: #### P TT, BMP, HS TROP, PT, CK, BNP, DIFF CBC #### [facility] [address] Hematocrit (Bld) [Volume fraction] 26.8 % Low 38.8-50.0 [facility] Comment on above: Result Comment: PERF ORMED BY: [place] [address] PATHOLOGIST COMPUTER MECHANIC OTTO HARLEY M.D. Performed By: #### P TT, BMP, HS TROP, PT, CK, BNP, DIFF CBC #### [address] Hemoglobin (Bld) [Mass/Vol] 9.1 g/dL Low 13.0-17.0 [facility] Comment on above: Performed By: #### P TT, BMP, HS TROP, PT, CK, BNP, DIFF CBC #### [address] Peripheral white blood cell differential % bands, microscopic examOrdered By: Bertha Cuevas on 03-06-2024 Band form neutrophils/100 WBC (Bld) 1 % Normal 0-5 [facility] Comment on above: Performed By: #### D IFF CBC ####[facility] ABO/Rh Retypeon 03-05-2024 ABO/RH Recheck Result Positive Normal [facility] Comment on above: Result Comment: PERF ORMED BY: [place] [address] PATHOLOGIST COMPUTER MECHANIC OTTO HARLEY M.D. Activated partial thrombopla stin time (aPTT) in platelet poor plasma by coagulation aOrdered By: Trung Armenta on 03-05-2024 aPTT Coag (PPP) [Time] 29.7 s 25.1-36.5 [facility] Comment on above: A hematocrit value g reater than 55% may lead to inaccurate results in coagulation testing. Patients having hematocrit values >55% require a special collection tube for coagulation studies. Please contact the laboratory at [phone] for redraw instructions. Alanine aminotransferase [En zymatic activity/volume] in Serum or PlasmaOrdered By: Bertha Cuevas on 03-05-2024 ALT [Catalytic activity/Vol] 10 U/L Normal 7-52 [facility] Comment on above: Performed By: #### C MP ####[place] [id number] [place] Albumin [Mass/volume] in Ser um or Plasma by Bromocresol green (BCG) dye binding methoOrdered By: Bertha Cuevas on 03-05-2024 Albumin BCG dye [Mass/Vol] 3.1 g/dL 3.5-5.7 [facility] Alkaline phosphatase [Enzyma tic activity/volume] in Serum or PlasmaOrdered By: Bertha Cuevas on 03-05-2024 ALP [Catalytic activity/Vol] 61 U/L Normal 34-104 [facility] Comment on above: Result Comment: PERF ORMED BY: [facility] [address] [place] [address] PATHOLOGIST COMPUTER MECHANIC OTTO HARLEY M.D. Performed By: #### C MP ####[place] [id number] [facility] Anisocytosis [Presence] in B lood by Light microscopyOrdered By: Trung Armenta on 03-05-2024 Anisocytosis Ql (Bld) Moderate Normal [facility] Comment on above: Performed By: #### P TT, BMP, HS TROP, PT, CK, BNP, DIFF CBC #### [place] [id number] [place] Aspartate aminotransferase [ Enzymatic activity/volume] in Serum or PlasmaOrdered By: Bertha Cuevas on 03-05-2024 AST [Catalytic activity/Vol] 16 U/L Normal 13-39 [facility] Comment on above: Performed By: #### C MP ####[place] [id number] [place] Automated epithelial cells c ount in urine sediment (number/area)Ordered By: Trung Armenta on 03-05-2024 Epithelial cells Auto (Urine sed) [#/Area] 0-1 [HPF] 0-2 [facility] BNP ser/plasOrdered By: Trudi Armenta on 03-05-2024 Natriuretic peptide B (Bld) [Mass/Vol] 108.0 pg/mL High 5-100 [facility] Comment on above: Result Comment: PERF ORMED BY: [place] [address] PATHOLOGIST COMPUTER MECHANIC OTTO HARLEY M.D. Performed By: #### P TT, BMP, HS TROP, PT, CK, BNP, DIFF CBC ####[address] Bacteria [Presence] in Urine by AutomatedOrdered By: Trung Armenta on 03-05-2024 Bacteria Auto Ql (U) None seen [HPF] None Seen [facility] Basic Metabolic Panelon 02-22 Creatinine Clr Calc Pharmacy 28.70 Normal [facility] Comment on above: Result Comment: PERF ORMED BY: [place] [address] PATHOLOGIST COMPUTER MECHANIC OTTO HARLEY M.D. Performed By: #### P TT, BMP, HS TROP, PT, CK, BNP, DIFF CBC #### [facility] [address] [place] [address] GFR/1.73 sq M.predicted MDRD (S/P/Bld) [Vol rate/Area] 30.449 mL/min/{1.73_m2} Normal [facility] Comment on above: Performed By: #### P TT, BMP, HS TROP, PT, CK, BNP, DIFF CBC #### [facility] [address] [place] [address] [place] Basophils Auto (Bld) [#/Vol] Ordered By: Trung Armenta on 03-05-2024 Basophils (Bld) [#/Vol] N/A [facility] Basophils Auto (Bld) [#/Vol] Ordered By: Bertha Cuevas on 03-05-2024 Basophils (Bld) [#/Vol] N/A [facility] Basophils/100 WBC Auto (Bld) Ordered By: Trung Armenta on 03-05-2024 Basophils/100 WBC (Bld) N/A [facility] Basophils/100 WBC Auto (Bld) Ordered By: Bertha Cuevas on 03-05-2024 Basophils/100 WBC (Bld) N/A [facility] Basophils/100 leukocytes in Blood by Manual countOrdered By: Trung Armenta on 03-05-2024 Basophils/100 WBC (Bld) 0 % Normal 0-2 [facility] Comment on above: Performed By: #### P TT, BMP, HS TROP, PT, CK, BNP, DIFF CBC #### [facility] [address] Bilirubin Test strip Ql (U)O rdered By: Trung Armenta on 03-05-2024 Bilirubin Ql (U) Negative Negative [facility] Bilirubin.total [Mass/volume ] in Serum or PlasmaOrdered By: Bertha Cuevas on 03-05-2024 Bilirubin [Mass/Vol] 0.4 mg/dL Normal 0.3-1.0 [facility] Comment on above: Performed By: #### C MP ####[facility] [address] [place] [address] [place] Calcium [Mass/volume] in Ser um or PlasmaOrdered By: Trung Armenta on 03-05-2024 Calcium [Mass/Vol] 9.9 mg/dL Normal 8.6-10.3 [facility] Comment on above: Performed By: #### P TT, BMP, HS TROP, PT, CK, BNP, DIFF CBC #### [facility] [address] [place] [id number] [place] Calcium [Mass/volume] in Ser um or PlasmaOrdered By: artem Cuevas on 03-05-2024 Calcium [Mass/Vol] 9.8 mg/dL Normal 8.6-10.3 [facility] Comment on above: Performed By: #### C MP ####[address] Carbon dioxide, total [Moles /volume] in Serum or PlasmaOrdered By: Trung Armenta on 03-05-2024 CO2 [Moles/Vol] 24.0 mmol/L Normal 21.0-31.0 [facility] Comment on above: Performed By: #### P TT, BMP, HS TROP, PT, CK, BNP, DIFF CBC #### [address] Carbon dioxide, total [Moles /volume] in Serum or PlasmaOrdered By: artem Dye- Portia on 03-05-2024 CO2 [Moles/Vol] 18.7 mmol/L Low 21.0-31.0 [facility] Comment on above: Performed By: #### C MP ####[address] Chloride [Moles/volume] in S dustin or PlasmaOrdered By: Trung Armenta on 03-05-2024 Chloride [Moles/Vol] 103 mmol/L Normal 98-107 [facility] Comment on above: Performed By: #### P TT, BMP, HS TROP, PT, CK, BNP, DIFF CBC #### [address] Chloride [Moles/volume] in S dustin or PlasmaOrdered By: artem Cuevas on 03-05-2024 Chloride [Moles/Vol] 104 mmol/L Normal 98-107 [facility] Comment on above: Performed By: #### C MP ####[address] Color of Urine by AutoOrdere d By: Trung Armenta on 03-05-2024 Color (U) Yellow Normal Yellow [facility] Comment on above: Order Comment: Name Collection Type:: Clean-Voided Midstream Performed By: #### P TT, BMP, HS TROP, PT, CK, BNP, DIFF CBC #### [address] Complete Blood Count Auto Di ffon 03-05-2024 Mean Corpuscular HGB Conc 34.6 g/dL Normal 32.5-35.6 [facility] Comment on above: Order Comment: STAT FOR BX Performed By: #### C BC #### [address] Comprehensive Metabolic Pane melvin 03-05-2024 Albumin [Mass/Vol] 3.1 g/dL Low 3.5-5.7 [facility] Comment on above: Performed By: #### C MP ####[address] GFR/1.73 sq M.predicted MDRD (S/P/Bld) [Vol rate/Area] 31.659 mL/min/{1.73_m2} Normal [facility] Comment on above: Performed By: #### C MP ####[address] Creatine kinase [Enzymatic a ctivity/volume] in Serum or PlasmaOrdered By: Trung Armenta on 03-05-2024 CK [Catalytic activity/Vol] 60 U/L Normal 30-223 [facility] Comment on above: Performed By: #### P TT, BMP, HS TROP, PT, CK, BNP, DIFF CBC #### [place] [address] [place] Creatinine [Mass/volume] in Serum or PlasmaOrdered By: Trung Armenta on 03-05-2024 Creatinine [Mass/Vol] 2.19 mg/dL High 0.70-1.30 [facility] Comment on above: Performed By: #### P TT, BMP, HS TROP, PT, CK, BNP, DIFF CBC #### [place] [address] [place] Creatinine [Mass/volume] in Serum or PlasmaOrdered By: Bertha Cuevas on 03-05-2024 Creatinine [Mass/Vol] 2.12 mg/dL High 0.70-1.30 [facility] Comment on above: Performed By: #### C MP ####[address] [place] [address] [place] Diff and CBCon 03-05-2024 Macrocytosis Slight Normal [facility] Comment on above: Performed By: #### P TT, BMP, HS TROP, PT, CK, BNP, DIFF CBC #### [address] Mean Corpuscular HGB Conc 34.4 g/dL Normal 32.5-35.6 [facility] Comment on above: Performed By: #### P TT, BMP, HS TROP, PT, CK, BNP, DIFF CBC #### [address] Monocyte Distribution Width Normal 0.00-20.00 [facility] Comment on above: Result Comment: The predictive value of MDW for identifying sepsis in patients with hematological abnormalities has not been established Performed By: #### P TT, BMP, HS TROP, PT, CK, BNP, DIFF CBC #### [address] Platelet Estimate Decreased Normal Normal [facility] Comment on above: Performed By: #### P TT, BMP, HS TROP, PT, CK, BNP, DIFF CBC #### [address] Platelet Morphology Normal Normal Normal [facility] Comment on above: Result Comment: PERF ORMED BY: [place] [address] PATHOLOGIST COMPUTER MECHANIC OTTO HARLEY M.D. Performed By: #### P TT, BMP, HS TROP, PT, CK, BNP, DIFF CBC #### [address] Dipstick and Microscopicon 0 03-05-2024 Appearance (U) Clear Normal Clear [facility] Comment on above: Order Comment: Name Collection Type:: Clean-Voided Midstream Performed By: #### P TT, BMP, HS TROP, PT, CK, BNP, DIFF CBC #### [address] Bacteria,Urine None Seen Normal None Seen [facility] Comment on above: Order Comment: Name Collection Type:: Clean-Voided Midstream Performed By: #### P TT, BMP, HS TROP, PT, CK, BNP, DIFF CBC #### [address] Bilirubin,Urine Negative Normal Negative [facility] Comment on above: Order Comment: Name Collection Type:: Clean-Voided Midstream Performed By: #### P TT, BMP, HS TROP, PT, CK, BNP, DIFF CBC #### [address] Glucose Ql (U) Normal Normal Normal [facility] Comment on above: Order Comment: Name Collection Type:: Clean-Voided Midstream Performed By: #### P TT, BMP, HS TROP, PT, CK, BNP, DIFF CBC #### [address] Hyaline Casts,Urine 0-8 Normal 0-8 [facility] Comment on above: Order Comment: Name Collection Type:: Clean-Voided Midstream Result Comment: PERF ORMED BY: [place] [address] PATHOLOGIST COMPUTER MECHANIC OTTO HARLEY M.D. Performed By: #### P TT, BMP, HS TROP, PT, CK, BNP, DIFF CBC #### [address] Ketones Ql (U) Negative Normal Negative [facility] Comment on above: Order Comment: Name Collection Type:: Clean-Voided Midstream Performed By: #### P TT, BMP, HS TROP, PT, CK, BNP, DIFF CBC #### [address] Leukocyte esterase Test strip Ql (U) Negative Normal Negative [facility] Comment on above: Order Comment: Name Collection Type:: Clean-Voided Midstream Performed By: #### P TT, BMP, HS TROP, PT, CK, BNP, DIFF CBC #### [place] [address] [place] Nitrite,Urine Negative Normal Negative [facility] Comment on above: Order Comment: Name Collection Type:: Clean-Voided Midstream Performed By: #### P TT, BMP, HS TROP, PT, CK, BNP, DIFF CBC #### [address] Occult Blood,Urine Negative Normal Negative [facility] Comment on above: Order Comment: Name Collection Type:: Clean-Voided Midstream Result Comment: PERF ORMED BY: [place] [address] PATHOLOGIST COMPUTER MECHANIC OTTO HARLEY M.D. Performed By: #### P TT, BMP, HS TROP, PT, CK, BNP, DIFF CBC #### [address] RBC,Urine 1-2 Normal 0-4 [facility] Comment on above: Order Comment: Name Collection Type:: Clean-Voided Midstream Performed By: #### P TT, BMP, HS TROP, PT, CK, BNP, DIFF CBC #### [address] Specificy [place],Urine 1.018 Normal 1.001-1.03 0 [facility] Comment on above: Order Comment: Name Collection Type:: Clean-Voided Midstream Performed By: #### P TT, BMP, HS TROP, PT, CK, BNP, DIFF CBC #### [address] Squamous Epithelial Cell,Urine 0-1 Normal 0-2 [facility] Comment on above: Order Comment: Name Collection Type:: Clean-Voided Midstream Performed By: #### P TT, BMP, HS TROP, PT, CK, BNP, DIFF CBC #### [address] Urobilinogen,Urine Normal Normal Normal [facility] Comment on above: Order Comment: Name Collection Type:: Clean-Voided Midstream Performed By: #### P TT, BMP, HS TROP, PT, CK, BNP, DIFF CBC #### [address] WBC,Urine 3-4 Normal 0-4 [facility] Comment on above: Order Comment: Name Collection Type:: Clean-Voided Midstream Performed By: #### P TT, BMP, HS TROP, PT, CK, BNP, DIFF CBC #### [facility] [address] ECG 12 lead ECGon 03-05-2024 ECG 12 lead ECG [facility] Main [place] [address] [place] [address] Electrocardiograph Report Signed Patient: Neil Wilcox MR#: [id number] : 1945 Acct:[id number] Age/Sex: 78 / M ADM Date: 03/05/24 Loc: ER Room: Type: [facility] ER Attending Dr: Ordering Provider: Trung Armenta DO Date of Service: 03/05/2409/16/1156 ECG/ECG 12 lead ECG: Recheck/Abnormal Lab/Rx Copies to: Test Reason : Blood Pressure : 078/038 mmHG Vent. Rate : 080 BPM Atrial Rate : 080 BPM P-R Int : 188 ms QRS Dur : 068 ms QT Int : 354 ms P-R-T Axes : 078 054 065 degrees QTc Int : 408 ms Normal sinus rhythm Low voltage QRS Cannot rule out Anterior infarct , age undetermined Abnormal ECG No previous ECGs available Confirmed by TRUNG ARMENTA DO ([id number]) on 03/05/2024 2:37:00 PM Referred By: Electronically Signed By:TRUNG ARMENTA DO Transcribed By: MUS Signed By Trung Armenta DO 1437 Normal [facility] Eosinophils Auto (Bld) [#/Vo l]Ordered By: Trung Armenta on 03-05-2024 Eosinophils (Bld) [#/Vol] N/A [facility] Eosinophils Auto (Bld) [#/Vo l]Ordered By: Bertha Cuevas on 03-05-2024 Eosinophils (Bld) [#/Vol] N/A [facility] Eosinophils/100 WBC Auto (Bl d)Ordered By: Trung Armenta on 03-05-2024 Eosinophils/100 WBC (Bld) N/A [facility] Eosinophils/100 WBC Auto (Bl d)Ordered By: Bertha Cuevas on 03-05-2024 Eosinophils/100 WBC (Bld) N/A [facility] Eosinophils/100 leukocytes i n Blood by Manual countOrdered By: Trung Armenta on 03-05-2024 Eosinophils/100 WBC (Bld) 10 % High 1-3 [facility] Comment on above: Performed By: #### P TT, BMP, HS TROP, PT, CK, BNP, DIFF CBC #### [facility] [address] Erythrocyte distribution wid th [Ratio] by Automated countOrdered By: Trung Armenta on 03-05-2024 Erythrocyte distribution width (RBC) [Ratio] 19.4 % High 12.0-14.8 [facility] Comment on above: Performed By: #### P TT, BMP, HS TROP, PT, CK, BNP, DIFF CBC #### [facility] [address] [place] [address] Erythrocyte distribution wid th [Ratio] by Automated countOrdered By: Bertha Pearce on 03-05-2024 Erythrocyte distribution width (RBC) [Ratio] 19.3 % High 12.0-14.8 [facility] Comment on above: Order Comment: STAT FOR BX Performed By: #### C BC #### [address] Erythrocytes [#/area] in Uri ne sediment by Automated countOrdered By: Trung Armenta on 03-05-2024 RBC Auto (Urine sed) [#/Area] 1-2 [HPF] 0-4 [facility] Erythrocytes [#/volume] in B lood by Automated countOrdered By: Trung Aremnta on 03-05-2024 RBC (Bld) [#/Vol] 1.93 10*6/uL Low 3.90-5.[address] [facility] Comment on above: Performed By: #### P TT, BMP, HS TROP, PT, CK, BNP, DIFF CBC #### [facility] [address] [place] [address] Erythrocytes [#/volume] in B lood by Automated countOrdered By: Bertha Cuevas on 03-05-2024 RBC (Bld) [#/Vol] 2.25 10*6/uL Low 3.90-5.[address] [facility] Comment on above: Order Comment: STAT FOR BX Performed By: #### C BC #### [facility] [address] Glucose [Mass/volume] in Ser um or PlasmaOrdered By: Trung Armenta on 03-05-2024 Glucose [Mass/Vol] 113 mg/dL High 70-100 [facility] Comment on above: ADA recommended refe rence rangeRandom Glucose Reference Range is dependent on time and content of last meal. Glucose of more than 200 mg/dL in a nonstressed, ambulatory subject supports the diagnosis of Diabetes Mellitus. Result Comment: [employer] om Glucose Reference Range is dependent on time and content of last meal. Glucose of more than 200 mg/dL in a nonstressed, ambulatory subject supports the diagnosis of Diabetes Mellitus. ADA recommended reference range Performed By: #### P TT, BMP, HS TROP, PT, CK, BNP, DIFF CBC #### [facility] [address] [place] [id number] [place] Glucose [Mass/volume] in Ser um or PlasmaOrdered By: Bertha Cuevas on 03-05-2024 Glucose [Mass/Vol] 110 mg/dL High 70-100 [facility] Comment on above: ADA recommended refe rence rangeRandom Glucose Reference Range is dependent on time and content of last meal. Glucose of more than 200 mg/dL in a nonstressed, ambulatory subject supports the diagnosis of Diabetes Mellitus. Result Comment: [employer] om Glucose Reference Range is dependent on time and content of last meal. Glucose of more than 200 mg/dL in a nonstressed, ambulatory subject supports the diagnosis of Diabetes Mellitus. ADA recommended reference range Performed By: #### C MP ####[facility] [address] Hematocrit [Volume Fraction] of Blood by Automated countOrdered By: rTung Armenta on 03-05-2024 Hematocrit (Bld) [Volume fraction] 20.1 % Low 38.8-50.0 [facility] Comment on above: Performed By: #### P TT, BMP, HS TROP, PT, CK, BNP, DIFF CBC #### [facility] [address] Hematocrit [Volume Fraction] of Blood by Automated countOrdered By: Endyartem Hardik- Daralara on 03-05-2024 Hematocrit (Bld) [Volume fraction] 23.5 % Low 38.8-50.0 [facility] Comment on above: Order Comment: STAT FOR BX Performed By: #### C BC #### [address] Hemoglobin [Mass/volume] in BloodOrdered By: Trung Armenta on 03-05-2024 Hemoglobin (Bld) [Mass/Vol] 6.9 g/dL Low 13.0-17.0 [facility] Comment on above: Performed By: #### P TT, BMP, HS TROP, PT, CK, BNP, DIFF CBC #### [facility] [address] Hemoglobin [Mass/volume] in BloodOrdered By: artem Ernielara on 03-05-2024 Hemoglobin (Bld) [Mass/Vol] 8.1 g/dL Low 13.0-17.0 [facility] Comment on above: Order Comment: STAT FOR BX Performed By: #### C BC #### [address] Hemoglobin and Hematocriton 03-05-2024 Hematocrit (Bld) [Volume fraction] 24.9 % Low 38.8-50.0 [facility] Comment on above: Result Comment: PERF ORMED BY: [place] [address] PATHOLOGIST COMPUTER MECHANIC OTTO HARLEY M.D. Performed By: #### H H ####[facility] [place] [address] Hemoglobin (Bld) [Mass/Vol] 8.6 g/dL Low 13.0-17.0 [facility] Comment on above: Performed By: #### H H ####[facility] [address] INR in Platelet poor plasma by Coagulation assayOrdered By: Trung Armenta on 03-05-2024 INR Coag (PPP) [Relative time] 1.3 {INR} Normal [facility] Comment on above: INR Therapeutic Rang e A) Pre- and Peroperative OAT started two weeks before surgery. NOT HIP SURGERY: 1.5 - 2.5 HIP SURGERY: 2 - 3B) Primary and secondary prevention of venous THROMBOSIS: 2 - 3C) Active venous thrombosis, pulmonary embolismand prevention of recurrent venous thrombosis: 2 - 3D) Prevention of arterial thromboembolismincluding patients with mechanical heart valves: 3 - 4.5 Result Comment: INR Therapeutic Range A) Pre- and Peroperative OAT started two weeks before surgery. NOT HIP SURGERY: 1.5 - 2.5 HIP SURGERY: 2 - 3 B) Primary and secondary prevention of venous THROMBOSIS: 2 - 3 C) Active venous thrombosis, pulmonary embolism and prevention of recurrent venous thrombosis: 2 - 3 D) Prevention of arterial thromboembolism including patients with mechanical heart valves: 3 - 4.5 Performed By: #### P TT, BMP, HS TROP, PT, CK, BNP, DIFF CBC #### [facility] [address] Ketones Auto test strip (U) [Mass/Vol]Ordered By: Trung Armenta on 03-05-2024 Ketones (U) [Mass/Vol] Negative Negative [facility] - UrinalysisOrder ed By: Trung Armenta on 03-05-2024 Hyaline casts LM Ql (Urine sed) 0-8 [LPF] 0-8 [facility] LeukoReduced RBCon LeukoReduced RBC TRANSFUSED 03/05/24 1636 Normal [facility] Leukocytes [#/area] in Urine sediment by Automated countOrdered By: Trung Armenta on 03-05-2024 WBC Auto (Urine sed) [#/Area] 3-4 [HPF] 0-4 [facility] Leukocytes [#/volume] correc myrtle for nucleated erythrocytes in Blood by Automated counOrdered By: Trung Armenta on 03-05-2024 WBC corrected for nucl RBC Auto (Bld) [#/Vol] 1.6 10*3/uL 4.1-10.5 [facility] Leukocytes [#/volume] correc myrtle for nucleated erythrocytes in Blood by Automated counOrdered By: Bertha Cuevas on 03-05-2024 WBC corrected for nucl RBC Auto (Bld) [#/Vol] 1.5 10*3/uL 4.1-10.5 [facility] Leukocytes [#/volume] in Blo od by Automated countOrdered By: Trung Armenta on 03-05-2024 WBC (Bld) [#/Vol] 1.6 10*3/uL Low 4.1-10.5 [facility] Comment on above: Performed By: #### P TT, BMP, HS TROP, PT, CK, BNP, DIFF CBC #### [facility] [address] [place] [address] Leukocytes [#/volume] in Blo od by Automated countOrdered By: Bertha Cuevas on 03-05-2024 WBC (Bld) [#/Vol] 1.5 10*3/uL Low 4.1-10.5 [facility] Comment on above: Order Comment: STAT FOR BX Performed By: #### C BC #### [facility] [address] [place] [address] Lymphocytes Auto (Bld) [#/Vo l]Ordered By: Trung Armenta on 03-05-2024 Lymphocytes (Bld) [#/Vol] N/A [facility] Lymphocytes Auto (Bld) [#/Vo l]Ordered By: Bertha Cuevas on 03-05-2024 Lymphocytes (Bld) [#/Vol] N/A [facility] Lymphocytes/100 WBC Auto (Bl d)Ordered By: Trung Armenta on 03-05-2024 Lymphocytes/100 WBC (Bld) N/A [facility] Lymphocytes/100 WBC Auto (Bl d)Ordered By: artem Cuevas on 03-05-2024 Lymphocytes/100 WBC (Bld) N/A [facility] Lymphocytes/100 leukocytes i n Blood by Manual countOrdered By: Trung Armenta on 03-05-2024 Lymphocytes/100 WBC (Bld) 54 % High 18-42 [facility] Comment on above: Performed By: #### P TT, BMP, HS TROP, PT, CK, BNP, DIFF CBC #### [facility] [address] [place] [address] MCH [Entitic mass] by Automa myrtle countOrdered By: Trung Armenta on 03-05-2024 MCH (RBC) [Entitic mass] 35.9 pg High 27.5-35.2 [facility] Comment on above: Performed By: #### P TT, BMP, HS TROP, PT, CK, BNP, DIFF CBC #### [facility] [address] [place] [address] MCH [Entitic mass] by Automa myrtle countOrdered By: Bertha Cuevas on 03-05-2024 MCH (RBC) [Entitic mass] 36.2 pg High 27.5-35.2 [facility] Comment on above: Order Comment: STAT FOR BX Performed By: #### C BC #### [address] MCHC Auto (RBC) [Mass/Vol]Or dered By: Trung Armenta on 03-05-2024 MCHC (RBC) [Mass/Vol] 34.4 g/dL 32.5-35.6 [facility] MCHC Auto (RBC) [Mass/Vol]Or dered By: Bertha Cuevas on 03-05-2024 MCHC (RBC) [Mass/Vol] 34.6 g/dL 32.5-35.6 [facility] MCV [Entitic volume] by Auto mated countOrdered By: Trung Armenta on 03-05-2024 MCV (RBC) [Entitic vol] 104.2 fL High 83.5-101 [facility] Comment on above: Performed By: #### P TT, BMP, HS TROP, PT, CK, BNP, DIFF CBC #### [address] MCV [Entitic volume] by Auto mated countOrdered By: Bertha Cuevas on 03-05-2024 MCV (RBC) [Entitic vol] 104.6 fL High 83.5-101 [facility] Comment on above: Order Comment: STAT FOR BX Performed By: #### C BC #### [facility] [address] Macrocytes LM Ql (Bld)Ordere d By: Trung Armenta on 03-05-2024 Macrocytes Ql (Bld) Slight [facility] Manual blood segmented neutr ophils/100 leukocytesOrdered By: Trung Armenta on 03-05-2024 Segmented neutrophils/100 WBC (Bld) 31 % Low 50-70 [facility] Comment on above: Performed By: #### P TT, BMP, HS TROP, PT, CK, BNP, DIFF CBC #### [facility] [address] [place] [address] Monocyte distribution width [Entitic volume] in Blood by AutomatedOrdered By: Trung Armenta on 03-05-2024 Monocyte distribution width Auto (Bld) [Entitic vol] See comment 0.00-20.00 [facility] Comment on above: The predictive value of MDW for identifying sepsis in patients with hematological abnormalities has not been established Monocytes Auto (Bld) [#/Vol] Ordered By: Trung Armenta on 03-05-2024 Monocytes (Bld) [#/Vol] N/A [facility] Monocytes Auto (Bld) [#/Vol] Ordered By: Bertha Cuevas on 03-05-2024 Monocytes (Bld) [#/Vol] N/A [facility] Monocytes/100 WBC Auto (Bld) Ordered By: Trung Armenta on 03-05-2024 Monocytes/100 WBC (Bld) N/A [facility] Monocytes/100 WBC Auto (Bld) Ordered By: Bertha Cuevas on 03-05-2024 Monocytes/100 WBC (Bld) N/A [facility] Monocytes/100 leukocytes in Blood by Manual countOrdered By: Trung Armenta on 03-05-2024 Monocytes/100 WBC (Bld) 0 % Low 2-11 [facility] Comment on above: Performed By: #### P TT, BMP, HS TROP, PT, CK, BNP, DIFF CBC #### [facility] [address] Neutrophils Auto (Bld) [#/Vo l]Ordered By: Trung Armenta on 03-05-2024 Neutrophils (Bld) [#/Vol] N/A [facility] Neutrophils Auto (Bld) [#/Vo l]Ordered By: Bertha Cuevas on 03-05-2024 Neutrophils (Bld) [#/Vol] N/A [facility] Neutrophils/100 WBC Auto (Bl d)Ordered By: Trung Armenta on 03-05-2024 Neutrophils/100 WBC (Bld) N/A [facility] Neutrophils/100 WBC Auto (Bl d)Ordered By: Bertha Cuevas on 03-05-2024 Neutrophils/100 WBC (Bld) N/A [facility] Nitrite Test strip Ql (U)Ord ered By: Trung Armenta on 03-05-2024 Nitrite Ql (U) Negative Negative [facility] No Panel InformationOrdered By: Trung Armenta on 03-05-2024 Stool Occult Blood (AMY) [facility] Estimated GFR (CKD-EPI) 30.449 mL/Min [facility] Creatinine Clearance (Chem 28.70 [facility] No Panel InformationOrdered By: Bertha Cuevas on 03-05-2024 Estimated GFR (CKD-EPI) 31.659 mL/Min [facility] Creatinine Clearance (Chem N/A [facility] Nucleated erythrocytes [Pres ence] in Blood by Automated countOrdered By: Trung Armenta on 03-05-2024 Nucleated RBC Auto Ql (Bld) N/A [facility] Nucleated erythrocytes [Pres ence] in Blood by Automated countOrdered By: Bertha Cuevas on 03-05-2024 Nucleated RBC Auto Ql (Bld) N/A [facility] Partial Thromboplastin Timeo n 03-05-2024 aPTT Coag (Bld) [Time] 29.7 s Normal 25.1-36.5 [facility] Comment on above: Result Comment: A he matocrit value greater than 55% may lead to inaccurate results in coagulation testing. Patients having hematocrit values >55% require a special collection tube for coagulation studies. Please contact the laboratory at [phone] for redraw instructions. PERFORMED BY: [place] [address] PATHOLOGIST COMPUTER MECHANIC OTTO HARLEY M.D. Performed By: #### P TT, BMP, HS TROP, PT, CK, BNP, DIFF CBC #### [address] Peripheral white blood cell differential % bands, microscopic examOrdered By: Trung Armenta on 03-05-2024 Band form neutrophils/100 WBC (Bld) 5 % Normal 0-5 [facility] Comment on above: Performed By: #### P TT, BMP, HS TROP, PT, CK, BNP, DIFF CBC #### [address] Platelet adequacy [Presence] in Blood by Light microscopyOrdered By: Trung Armenta on 03-05-2024 Platelets LM Ql (Bld) Decreased Normal [facility] Platelet mean volume [Entiti c volume] in Blood by Automated countOrdered By: Trung Armenta on 03-05-2024 Platelet mean volume (Bld) [Entitic vol] 7.6 fL Normal 6.6-10.1 [facility] Comment on above: Result Comment: PERF ORMED BY: [place] [address] PATHOLOGIST COMPUTER MECHANIC OTTO HARLEY M.D. Performed By: #### P TT, BMP, HS TROP, PT, CK, BNP, DIFF CBC #### [facility] [address] [place] [address] Platelet mean volume [Entiti c volume] in Blood by Automated countOrdered By: Bertha Cuevas on 03-05-2024 Platelet mean volume (Bld) [Entitic vol] 8.0 fL Normal 6.6-10.1 [facility] Comment on above: Order Comment: STAT FOR BX Result Comment: PERF ORMED BY: [address] [place] [address] PATHOLOGIST COMPUTER MECHANIC OTTO HARLEY M.D. Performed By: #### C BC #### [address] Platelet morphology finding [Identifier] in BloodOrdered By: Trung Armenta on 03-05-2024 Platelet morphology finding Nom (Bld) Normal Normal [facility] Platelets [#/volume] in Bloo d by Automated countOrdered By: Trung Armenta on 03-05-2024 Platelets (Bld) [#/Vol] 67 10*3/uL Low 150-450 [facility] Comment on above: Performed By: #### P TT, BMP, HS TROP, PT, CK, BNP, DIFF CBC #### [place] [address] [place] Platelets [#/volume] in Bloo d by Automated countOrdered By: Bertha Cuevas on 03-05-2024 Platelets (Bld) [#/Vol] 78 10*3/uL Low 150-450 [facility] Comment on above: Order Comment: STAT FOR BX Performed By: #### C BC #### [place] [address] [place] Potassium [Moles/volume] in Serum or PlasmaOrdered By: Trung Armenta on 03-05-2024 Potassium [Moles/Vol] 4.2 mmol/L Normal 3.5-5.1 [facility] Comment on above: Performed By: #### P TT, BMP, HS TROP, PT, CK, BNP, DIFF CBC #### [place] [address] [place] Potassium [Moles/volume] in Serum or PlasmaOrdered By: Bertha Cuevas on 03-05-2024 Potassium [Moles/Vol] 4.5 mmol/L Normal 3.5-5.1 [facility] Comment on above: Hemolysis is present at a level that could interfere with the result.Contact lab if redraw is required Result Comment: Hemo lysis is present at a level that could interfere with the result. Contact lab if redraw is required Performed By: #### C MP ####[place] [address] Protein [Mass/volume] in Ser um or PlasmaOrdered By: Bertha Cuevas on 03-05-2024 Protein [Mass/Vol] 9.3 g/dL High 6.4-8.9 [facility] Comment on above: Performed By: #### C MP ####[address] Prothrombin time (PT)Ordered By: Trung Armenta on 03-05-2024 PT Coag (PPP) [Time] 15.0 s High 9.0-12.9 [facility] Comment on above: A hematocrit value g reater than 55% may lead to inaccurate results in coagulation testing. Patients having hematocrit values >55% require a special collection tube for coagulation studies. Please contact the laboratory at [phone] for redraw instructions. Result Comment: A he matocrit value greater than 55% may lead to inaccurate results in coagulation testing. Patients having hematocrit values >55% require a special collection tube for coagulation studies. Please contact the laboratory at [phone] for redraw instructions. Performed By: #### P TT, BMP, HS TROP, PT, CK, BNP, DIFF CBC #### [address] RBC morphologyOrdered By: Emeka Armenta on 03-05-2024 RBC morphology finding Nom (Bld) N/A [facility] Serum globulin measurement b y calculation (mass/volume)Ordered By: artem Pearce on 03-05-2024 Globulin (S) [Mass/Vol] 6.2 g/dL [facility] Comment on above: Performed By: #### C MP ####[address] Serum or plasma albumin/glob ulin mass ratioOrdered By: artem Cuevas on 03-05-2024 Albumin/Globulin [Mass ratio] 0.5 {ratio} [facility] Comment on above: Performed By: #### C MP ####[facility] Serum or plasma anion gap de terminationOrdered By: Trung Armenta on 03-05-2024 Anion gap [Moles/Vol] 16.2 mmol/L High 6.0-15.0 [facility] Comment on above: Performed By: #### P TT, BMP, HS TROP, PT, CK, BNP, DIFF CBC #### [facility] [address] Serum or plasma anion gap de terminationOrdered By: d Al-Marrawi on 03-05-2024 Anion gap [Moles/Vol] 19.8 mmol/L High 6.0-15.0 [facility] Comment on above: Performed By: #### C MP ####[address] Sodium [Moles/volume] in Ser um or PlasmaOrdered By: Trung Armenta on 03-05-2024 Sodium [Moles/Vol] 139 mmol/L Normal 136-145 [facility] Comment on above: Performed By: #### P TT, BMP, HS TROP, PT, CK, BNP, DIFF CBC #### [facility] [address] Sodium [Moles/volume] in Ser um or PlasmaOrdered By: d Al-Marrawi on 03-05-2024 Sodium [Moles/Vol] 138 mmol/L Normal 136-145 [facility] Comment on above: Performed By: #### C MP ####[address] Specific gravity Auto test s trip (U) [Rel density]Ordered By: Trung Armenta on 03-05-2024 Specific gravity (U) [Rel density] 1.018 1.001-1.03 0 [facility] Stool Occult Bl. Scr. (Guaia c)on 03-05-2024 Stool Occult Bl. Scr. (Guaiac) Occult Blood Negative for Occult Blood by Guaiac Methodology Reference range = Negative PERFORMED BY: [place] [address] PATHOLOGIST COMPUTER MECHANIC OTTO HARLEY M.D. Normal [facility] Comment on above: Performed By: #### O BS-GUAIAC #### [address] Troponin I High Sensitivityo n 03-05-2024 Troponin I High Sensitivity 22.3 pg/mL High 0.0-20.0 [facility] Comment on above: Result Comment: PERF ORMED BY: [place] [address] PATHOLOGIST COMPUTER MECHANIC OTTO HARLEY M.D. Performed By: #### P TT, BMP, HS TROP, PT, CK, BNP, DIFF CBC #### [address] Troponin I.cardiac [Mass/vol ume] in Serum or Plasma by Detection limit <= 0.01 ng/Ordered By: Trung Armenta on 03-05-2024 Troponin I.cardiac DL <= 0.01 ng/mL [Mass/Vol] 22.3 pg/mL 0.0-20.0 [facility] Type and Screenon 03-05-2024 ABO and Rh group Nom (Bld) Blood group A Rh(D) positive Normal [facility] Comment on above: Order Comment: Trans fuse now? Y Number of units to transfuse now? 2 Result Comment: PERF ORMED BY: [place] [address] PATHOLOGIST COMPUTER MECHANIC OTTO HARLEY M.D. Urea nitrogen [Mass/volume] in Serum or PlasmaOrdered By: Trung Armenta on 03-05-2024 Urea nitrogen [Mass/Vol] 42 mg/dL High 7-25 [facility] Comment on above: Performed By: #### P TT, BMP, HS TROP, PT, CK, BNP, DIFF CBC #### [facility] [address] [place] [address] [place] Urea nitrogen [Mass/volume] in Serum or PlasmaOrdered By: Bertha Cuevas on 03-05-2024 Urea nitrogen [Mass/Vol] 41 mg/dL High 7-25 [facility] Comment on above: Performed By: #### C MP ####[facility] [address] Urine clarity by refractomet ry automatedOrdered By: Trung Armenta on 03-05-2024 Clarity Refractometry automated (U) Clear Clear [facility] Urine glucose measurement by automated test strip (mass/volume)Ordered By: Trung Armenta on 03-05-2024 Glucose Auto test strip (U) [Mass/Vol] Normal mg/dL Normal [facility] Urine hemoglobin detection b y automated test stripOrdered By: Trung Armenta on 03-05-2024 Hemoglobin Auto test strip Ql (U) Negative Negative [facility] Urine leukocyte esterase det ection by automated test stripOrdered By: Trung Armenta on 03-05-2024 Leukocyte esterase Auto test strip Ql (U) Negative Negative [facility] Urine pH measurement by auto mated test stripOrdered By: Trung Armenta on 03-05-2024 pH (U) 5.5 [pH] Normal 5.0-9.0 [facility] Comment on above: Order Comment: Name Collection Type:: Clean-Voided Midstream Performed By: #### P TT, BMP, HS TROP, PT, CK, BNP, DIFF CBC #### [facility] [address] [place] [address] [place] Urine protein measurement by automated test strip (mass/volume)Ordered By: Trung Armenta on 03-05-2024 Protein (U) [Mass/Vol] 30 mg/dL High Negative [facility] Comment on above: Order Comment: Name Collection Type:: Clean-Voided Midstream Performed By: #### P TT, BMP, HS TROP, PT, CK, BNP, DIFF CBC #### [facility] [address] [place] [address] [place] Urobilinogen Auto test strip (U) [Mass/Vol]Ordered By: Trung Armenta on 03-05-2024 Urobilinogen (U) [Mass/Vol] Normal mg/dL Normal [facility] XR bone surveyon 03-05-2024 XR bone survey [facility] [address] [address] XRay Report Signed Patient: Neil Wilcox MR#: [id number] : 1945 Acct:[id number] Age/Sex: 78 / M ADM Date: 03/05/24 Loc: Room: [address] [place] [address] Type: ADM IN Attending Dr: Roslyn Townsend DO Copies to: Roslyn Townsend DO Ordering Provider: Roslyn Townsend DO Date of Service: 03/05/24 XR/XR bone survey: Concern for multiple myeloma, look for lesions Plain film bone survey HISTORY: Assessment for multiple myeloma. COMPARISON: No prior imaging Mottled lytic lesions of the humeri radius and ulna and femurs. Potential tiny lytic lesions of the skull. Decreased when mineralization. Spinal degeneration. Old proximal LEFT humerus fracture. RIGHT shoulder arthroplasty. Loop recorder. Watchman device. Mild scoliosis no acute chest findings. Unremarkable bowel gas pattern. L1, L2 and L4 compression deformities. XR/XR bone survey IMPRESSION: Mottled lytic changes of the skull, humeri, femurs and radius and ulna concerning for bony findings of multiple myeloma. Age-indeterminate L1, L2 and L4 compression deformities. Degenerative change. Impression dictated by: Tobias Tracy M.D.03/05/2024 6:02 PM Dictation Location: [place] [address] Transcribed By: [facility] 03/05/241801 Dictated By: Tobias Tracy DO 03/05/24 175 Signed By: 03/05/241801 Normal [facility] XR chest 2V*on 03-05-2024 XR chest 2V* [facility] [address] [address] XRay Report Signed Patient: Neil Wilcox MR#: [id number] : 1945 Acct:[id number] Age/Sex: 78 / M ADM Date: 03/05/24 Loc: ER Room: Type: [facility] Attending Dr: Copies to: Trung Armenta DO Ordering Provider: Trung Armenta DO Date of Service: 03/05/24 XR/XR chest 2V*: Recheck/Abnormal Lab/Rx Plain film chest 2 view HISTORY: Low blood pressure COMPARISON: None FINDINGS: SUPPORT DEVICES: None POSTSURGICAL CHANGES: Loop recorder HEART: Within normal limits PULMONARY EVELYN: Within normal limits MEDIASTINUM: Unremarkable LUNGS AND PLEURA: LEFT basilar linear atelectasis/pneumonitis. Minimal blunting of the posterior costophrenic angle. No pneumothorax. BONY STRUCTURES: Intact ADDITIONAL FINDINGS None XR/XR chest 2V* IMPRESSION: LEFT basilar linear atelectasis/pneumonitis. Minimal basilar pleural reaction. Impression dictated by: Tobias Tracy M.D.03/05/2024 12:34 PM Dictation Location: [place] [address] Transcribed By: [facility] 03/05/24 1234 Dictated By: Tobias Tracy DO 03/05/24 1230 Signed By: 03/05/24 1234 Normal [facility] [place] Antinuclear Antibodieson 02-26-2024 Antinuclear Abs, IFA Positive Critically abnormal . [facility] Comment on above: Result Comment: Nega tive <1:80 Borderline 1:80 Positive >1:80 Performed By: #### O BS-GUAIAC #### [facility] [address] Homogeneous Pattern 1:320 High . [facility] Comment on above: Result Comment: ICAP nomenclature: AC-1 Performed By: #### O BS-GUAIAC #### [facility] [address] Note 1 Normal . [facility] Comment on above: Result Comment: Yamel bah Potential Disease Association Homogeneous Systemic Lupus Erythematosus, Drug Induced Systemic Lupus Erythematosus, Chronic Autoimmune hepatitis, Juvenile Idiopathic Arthritis Speckled Sjogren Syndrome, Systemic Lupus Erythematosus, Subacute Cutaneous Lupus, Lupus, Congenital Heart Block, Mixed Connective Tissue Disease, Scleroderma-diffuse, Scleroderma-Autoimmune Myositis Overlap Syndrome, Systemic Lupus Hsubvexmixhek-Nroeeorliqx-Xgialltfpl Myositis Overlap Syndrome, Systemic Autoimmune Rheumatic Disease, Undifferentiated Connective Tissue Disease Nucleolar Systemic Sclerosis, Scleroderma-Autoimmune Myositis Overlap Syndrome, Sjogren Syndrome, Raynaud phenomenon, Pulmonary Arterial Hypertension, Systemic Autoimmune Rheumatic Disease, Cancer Centromere Scleroderma-CREST, Limited Cutaneous SSc, Raynaud's Phenomenon, Primary Biliary Cholangitis Nuclear Dot Primary Biliary Cholangitis Nuclear Primary Biliary Cholangitis, Autoimmune Membrane Hepatitis/Liver disease, Systemic Autoimmune Rheumatic Disease, Autoimmune Cytopenias, Linear Scleroderma, Antiphospholipid Syndrome Performed at: - [facility] [address] [id number] Tongue Presser: J Carlos Blackman PhD, Phone: [phone] Performed By: #### O BS-GUAIAC #### [facility] [address] Absolute reticulocyte countO rdered By: Bertha Cuevas on 02-26-2024 Reticulocytes (Bld) [#/Vol] 0.002 10*6/uL 0.024-0.08 4 [facility] Alanine aminotransferase [En zymatic activity/volume] in Serum or PlasmaOrdered By: Bertha Cuevas on 02-26-2024 ALT [Catalytic activity/Vol] 10 U/L Normal 7-52 [facility] Comment on above: Performed By: #### P LT AB S, SPE, RA, HBSAG, HIV SCREEN, KAPPA, HBSAB, HCV RX PCR, CAMILA, SADIE, HBCAB, SKIP SERUM, CU ####[facility] ,#### FISH NOT BLAD, MARÍA, TSH3, FLOW NEOGENOMIC, CMP, RETIC, CYTOGENE, SCAN CBC, FE and TIBC, T4F, [id number], LDH ####[facility] [id number] Albumin [Mass/volume] in Ser um or PlasmaOrdered By: Bertha Cuevas on 02-26-2024 Albumin [Mass/Vol] 3.4 g/dL Normal 2.9-4.4 [facility] Comment on above: Performed By: #### O BS-GUAIAC #### [facility] [address] [place] [address] [place] Albumin [Mass/volume] in Ser um or Plasma by Bromocresol green (BCG) dye binding methoOrdered By: Bertha Cuevas on 02-26-2024 Albumin BCG dye [Mass/Vol] 3.5 g/dL 3.5-5.7 [facility] Alkaline phosphatase [Enzyma tic activity/volume] in Serum or PlasmaOrdered By: Bertha Cuevas on 02-26-2024 ALP [Catalytic activity/Vol] 71 U/L Normal 34-104 [facility] Comment on above: Performed By: #### P LT AB S, SPE, RA, HBSAG, HIV SCREEN, KAPPA, HBSAB, HCV RX PCR, CAMILA, SADIE, HBCAB, SKIP SERUM, CU ####[facility] ,#### FISH NOT BLAD, MARÍA, TSH3, FLOW NEOGENOMIC, CMP, RETIC, CYTOGENE, SCAN CBC, FE and TIBC, T4F, [id number], LDH ####[address] Anisocytosis [Presence] in B lood by Light microscopyOrdered By: Bertha Cuevas on 02-26-2024 Anisocytosis Ql (Bld) Marked Normal [facility] Comment on above: Performed By: #### P LT AB S, SPE, RA, HBSAG, HIV SCREEN, KAPPA, HBSAB, HCV RX PCR, CAMILA, SADIE, HBCAB, SKIP SERUM, CU ####[facility] ,#### FISH NOT BLAD, MARÍA, TSH3, FLOW NEOGENOMIC, CMP, RETIC, CYTOGENE, SCAN CBC, FE and TIBC, T4F, [id number], LDH ####[address] Aspartate aminotransferase [ Enzymatic activity/volume] in Serum or PlasmaOrdered By: Bertha Cuevas on 02-26-2024 AST [Catalytic activity/Vol] 12 U/L Low 13-39 [facility] Comment on above: Performed By: #### P LT AB S, SPE, RA, HBSAG, HIV SCREEN, KAPPA, HBSAB, HCV RX PCR, CAMILA, SADIE, HBCAB, SKIP SERUM, CU ####[facility] ,#### FISH NOT BLAD, MARÍA, TSH3, FLOW NEOGENOMIC, CMP, RETIC, CYTOGENE, SCAN CBC, FE and TIBC, T4F, [id number], LDH ####[address] Automated basophil %Ordered By: artem Cuevas on 02-26-2024 Basophils/100 WBC (Bld) 0.2 % Normal . [facility] Comment on above: Performed By: #### P LT AB S, SPE, RA, HBSAG, HIV SCREEN, KAPPA, HBSAB, HCV RX PCR, CAMILA, SADIE, HBCAB, SKIP SERUM, CU ####[facility] ,#### FISH NOT BLAD, MARÍA, TSH3, FLOW NEOGENOMIC, CMP, RETIC, CYTOGENE, SCAN CBC, FE and TIBC, T4F, [id number], LDH ####[facility] Automated basophil countOrde red By: Bertha NewellDaralara on 02-26-2024 Basophils (Bld) [#/Vol] 0.0 10*3/uL Normal 0.0-0.2 [facility] Comment on above: Performed By: #### P LT AB S, SPE, RA, HBSAG, HIV SCREEN, KAPPA, HBSAB, HCV RX PCR, CAMILA, SADIE, HBCAB, SKIP SERUM, CU ####[facility] ,#### FISH NOT BLAD, MARÍA, TSH3, FLOW NEOGENOMIC, CMP, RETIC, CYTOGENE, SCAN CBC, FE and TIBC, T4F, [id number], LDH ####[address] Automated blood monocyte cou ntOrdered By: Bertha Cuevas on 02-26-2024 Monocytes (Bld) [#/Vol] 0.0 10*3/uL Normal 0.0-0.8 [facility] Comment on above: Performed By: #### P LT AB S, SPE, RA, HBSAG, HIV SCREEN, KAPPA, HBSAB, HCV RX PCR, CAMILA, SDAIE, HBCAB, SKIP SERUM, CU ####[facility] ,#### FISH NOT BLAD, MARÍA, TSH3, FLOW NEOGENOMIC, CMP, RETIC, CYTOGENE, SCAN CBC, FE and TIBC, T4F, [id number], LDH ####[place] [id number] [address] Automated eosinophil %Ordere d By: Bertha Cuevas on 02-26-2024 Eosinophils/100 WBC (Bld) 10.5 % Normal . [facility] Comment on above: Performed By: #### P LT AB S, SPE, RA, HBSAG, HIV SCREEN, KAPPA, HBSAB, HCV RX PCR, CAMILA, SADIE, HBCAB, SKIP SERUM, CU ####[facility] ,#### FISH NOT BLAD, MARÍA, TSH3, FLOW NEOGENOMIC, CMP, RETIC, CYTOGENE, SCAN CBC, FE and TIBC, T4F, [id number], LDH ####[address] Automated eosinophil countOr dered By: artem Cuevas on 02-26-2024 Eosinophils (Bld) [#/Vol] 0.3 10*3/uL Normal 0.0-0.45 [facility] Comment on above: Performed By: #### P LT AB S, SPE, RA, HBSAG, HIV SCREEN, KAPPA, HBSAB, HCV RX PCR, CAMILA, SADIE, HBCAB, SKIP SERUM, CU ####[facility] ,#### FISH NOT BLAD, MARÍA, TSH3, FLOW NEOGENOMIC, CMP, RETIC, CYTOGENE, SCAN CBC, FE and TIBC, T4F, [id number], LDH ####[address] Automated monocyte %Ordered By: artem Cuevas on 02-26-2024 Monocytes/100 WBC (Bld) 1.4 % Normal . [facility] Comment on above: Performed By: #### P LT AB S, SPE, RA, HBSAG, HIV SCREEN, KAPPA, HBSAB, HCV RX PCR, CAMILA, SADIE, HBCAB, SKIP SERUM, CU ####[facility] ,#### FISH NOT BLAD, MARÍA, TSH3, FLOW NEOGENOMIC, CMP, RETIC, CYTOGENE, SCAN CBC, FE and TIBC, T4F, [id number], LDH ####[facility] [place] [id number] [facility] Automated neutrophil %Ordere d By: Bertha Cuevas on 02-26-2024 Neutrophils/100 WBC (Bld) 44.9 % Normal . [facility] Comment on above: Performed By: #### P LT AB S, SPE, RA, HBSAG, HIV SCREEN, KAPPA, HBSAB, HCV RX PCR, CAMILA, SADIE, HBCAB, SKIP SERUM, CU ####[facility] ,#### FISH NOT BLAD, MARÍA, TSH3, FLOW NEOGENOMIC, CMP, RETIC, CYTOGENE, SCAN CBC, FE and TIBC, T4F, [id number], LDH ####[facility] Basophil percentageOrdered B y: Bertha Cuevas on 02-26-2024 Basophil percentage 109 ug/dL 69-[address] [facility] Comment on above: This test was develo ped and its performance characteristicsdetermined by [employer]. It has not been cleared orapproved by the Food and Drug Administration. Detection Limit = 5Performed at: [facility] [id number] Director: Mary Jane Maya MD, Phone: [phone] Bilirubin.total [Mass/volume ] in Serum or PlasmaOrdered By: Bertha Lockhartjaime on 02-26-2024 Bilirubin [Mass/Vol] 0.8 mg/dL Normal 0.3-1.0 [facility] Comment on above: Performed By: #### P LT AB S, SPE, RA, HBSAG, HIV SCREEN, KAPPA, HBSAB, HCV RX PCR, CAMILA, SADIE, HBCAB, SKIP SERUM, CU ####[facility] ,#### FISH NOT BLAD, MARÍA, TSH3, FLOW NEOGENOMIC, CMP, RETIC, CYTOGENE, SCAN CBC, FE and TIBC, T4F, [id number], LDH ####[facility] Blood platelet glycoprotein Ib/IX IgG antibody detection by immunoassayOrdered By: artem Cuevas on 02-26-2024 Platelet glycoprotein Ib/Ix IgG IA Ql (Bld) Negative Negative [facility] Calcium [Mass/volume] in Ser um or PlasmaOrdered By: aretm Cuevas on 02-26-2024 Calcium [Mass/Vol] 12.1 mg/dL High 8.6-10.3 [facility] Comment on above: Performed By: #### P LT AB S, SPE, RA, HBSAG, HIV SCREEN, KAPPA, HBSAB, HCV RX PCR, CAMILA, SADIE, HBCAB, SKIP SERUM, CU ####[facility] ,#### FISH NOT BLAD, MARÍA, TSH3, FLOW NEOGENOMIC, CMP, RETIC, CYTOGENE, SCAN CBC, FE and TIBC, T4F, [id number], LDH ####[place] [address] [address] Carbon dioxide, total [Moles /volume] in Serum or PlasmaOrdered By: artem [facility] Portia on 02-26-2024 CO2 [Moles/Vol] 25.2 mmol/L Normal 21.0-31.0 [facility] Comment on above: Performed By: #### P LT AB S, SPE, RA, HBSAG, HIV SCREEN, KAPPA, HBSAB, HCV RX PCR, CAMILA, SADIE, HBCAB, SKIP SERUM, CU ####[facility] ,#### FISH NOT BLAD, MARÍA, TSH3, FLOW NEOGENOMIC, CMP, RETIC, CYTOGENE, SCAN CBC, FE and TIBC, T4F, [id number], LDH ####[place] [address] [place] [id number] [facility] Chloride [Moles/volume] in S dustin or PlasmaOrdered By: artem MoEmanuel on 02-26-2024 Chloride [Moles/Vol] 104 mmol/L Normal 98-107 [facility] Comment on above: Performed By: #### P LT AB S, SPE, RA, HBSAG, HIV SCREEN, KAPPA, HBSAB, HCV RX PCR, CAMILA, SADIE, HBCAB, SKIP SERUM, CU ####[facility] ,#### FISH NOT BLAD, MARÍA, TSH3, FLOW NEOGENOMIC, CMP, RETIC, CYTOGENE, SCAN CBC, FE and TIBC, T4F, [id number], LDH ####[place] [address] [place] [id number] [facility] Comprehensive Metabolic Pane melvin 02-26-2024 Albumin [Mass/Vol] 3.5 g/dL Normal 3.5-5.7 [facility] Comment on above: Performed By: #### P LT AB S, SPE, RA, HBSAG, HIV SCREEN, KAPPA, HBSAB, HCV RX PCR, CAMILA, SADIE, HBCAB, SKIP SERUM, CU ####[facility] ,#### FISH NOT BLAD, MARÍA, TSH3, FLOW NEOGENOMIC, CMP, RETIC, CYTOGENE, SCAN CBC, FE and TIBC, T4F, [id number], LDH ####[address] Creatinine Clr Calc Pharmacy 43.64 Normal [facility] Comment on above: Performed By: #### P LT AB S, SPE, RA, HBSAG, HIV SCREEN, KAPPA, HBSAB, HCV RX PCR, CAMILA, SADIE, HBCAB, SKIP SERUM, CU ####[facility] ,#### FISH NOT BLAD, MARÍA, TSH3, FLOW NEOGENOMIC, CMP, RETIC, CYTOGENE, SCAN CBC, FE and TIBC, T4F, [id number], LDH ####[place] [address] [address] GFR/1.73 sq M.predicted MDRD (S/P/Bld) [Vol rate/Area] 50.358 mL/min/{1.73_m2} Normal [facility] Comment on above: Performed By: #### P LT AB S, SPE, RA, HBSAG, HIV SCREEN, KAPPA, HBSAB, HCV RX PCR, CAMILA, SADIE, HBCAB, SKIP SERUM, CU ####[facility] ,#### FISH NOT BLAD, MARÍA, TSH3, FLOW NEOGENOMIC, CMP, RETIC, CYTOGENE, SCAN CBC, FE and TIBC, T4F, [id number], LDH ####[facility] [place] [id number] [facility] Copperon 02-26-2024 Copper 109 ug/dL Normal 69-132 [facility] Comment on above: Result Comment: This test was developed and its performance characteristics determined by [employer]. It has not been cleared or approved by the Food and Drug Administration. Detection Limit = 5 Performed at: [facility] Lab[address] [id number] Tongue Presser: Mary Jane Maya MD, Phone: [phone] Performed By: #### O BS-GUAIAC #### [address] Creatinine [Mass/volume] in Serum or PlasmaOrdered By: Bertha Cuevsa on 02-26-2024 Creatinine [Mass/Vol] 1.44 mg/dL High 0.70-1.30 [facility] Comment on above: Performed By: #### P LT AB S, SPE, RA, HBSAG, HIV SCREEN, KAPPA, HBSAB, HCV RX PCR, CAMILA, SADIE, HBCAB, SKIP SERUM, CU ####[facility] ,#### FISH NOT BLAD, MARÍA, TSH3, FLOW NEOGENOMIC, CMP, RETIC, CYTOGENE, SCAN CBC, FE and TIBC, T4F, [id number], LDH ####[facility] [place] [id number] [facility] [employer]ogenetics [employer] Cytogenetics Neogenomic Normal [facility] Comment on above: Result Comment: See report. Scanned copy available in EMR. Performed By: #### O BS-GUAIAC #### [address] Direct [place] 02-26-2024 Polyspecific AHG Negative Normal Negative [facility] Comment on above: Result Comment: PERF ORMED BY: [place] [address] PATHOLOGIST COMPUTER MECHANIC OTTO HARLEY M.D. Erythrocyte distribution wid th [Ratio] by Automated countOrdered By: Bertha Pearce on 02-26-2024 Erythrocyte distribution width (RBC) [Ratio] 20.0 % High 12.0-14.8 [facility] Comment on above: Performed By: #### P LT AB S, SPE, RA, HBSAG, HIV SCREEN, KAPPA, HBSAB, HCV RX PCR, CAMILA, SADIE, HBCAB, SKIP SERUM, CU ####[facility] ,#### FISH NOT BLAD, MARÍA, TSH3, FLOW NEOGENOMIC, CMP, RETIC, CYTOGENE, SCAN CBC, FE and TIBC, T4F, [id number], LDH ####[facility] [id number] [address] Erythrocytes [#/volume] in B lood by Automated countOrdered By: Bertha Cuevas on 02-26-2024 RBC (Bld) [#/Vol] 2.60 10*6/uL Low 3.90-5.[address] [facility] Comment on above: Performed By: #### P LT AB S, SPE, RA, HBSAG, HIV SCREEN, KAPPA, HBSAB, HCV RX PCR, CAMILA, SADIE, HBCAB, SKIP SERUM, CU ####[facility] ,#### FISH NOT BLAD, MARÍA, TSH3, FLOW NEOGENOMIC, CMP, RETIC, CYTOGENE, SCAN CBC, FE and TIBC, T4F, [id number], LDH ####[facility] [id number] [address] Ferritin [Mass/volume] in Se rum or PlasmaOrdered By: Bertha Cuevas on 02-26-2024 Ferritin [Mass/Vol] 720.3 ng/mL High 23.9-336.2 [facility] Comment on above: Performed By: #### C BC #### [facility] [address] Fish Not Bladder Neogenomico n 02-26-2024 Fish Not Bladder Neogenomic Normal [facility] Comment on above: Result Comment: See report. Scanned copy available in EMR. PERFORMED BY: [place] [address] PATHOLOGIST COMPUTER MECHANIC OTTO HARLEY M.D. Performed By: #### P TT, BMP, HS TROP, PT, CK, BNP, DIFF CBC #### [address] Flowcytometry Neogen[employer]icon 0 02-26-2024 Flowcytometry Neogenomic Normal [facility] Comment on above: Result Comment: See report. Scanned copy available in EMR.See report. Scanned copy available in EMR. --- 03/03/24 0759 --- Flow Neogenomic previously reported as: See report. Scanned copy available in EMR. Performed By: #### O BS-GUAIAC #### [address] Folate [Mass/volume] in Seru m or PlasmaOrdered By: Bertha Cuevas on 02-26-2024 Folate [Mass/Vol] ng/mL >5.9 [facility] Comment on above: Folate reference ran ge: >5.9 ng/mlThe WHO technical consultation on folate and vitamin [id number] has determined that folate concentrations lessthan 4 ng/ml are considered deficient. Free K+L LT Chains, Qn, Son 02-26-2024 Free [place] Light Chains, S 1354.4 mg/L High 3.3-19.4 [facility] Comment on above: Performed By: #### O BS-GUAIAC #### [address] Free Lambda Light Chains, S 10.1 mg/L Normal 5.7-26.3 [facility] Comment on above: Performed By: #### O BS-GUAIAC #### [address] [place]/Lambda Ratio, S 134.10 High 0.26-1.65 [facility] Comment on above: Result Comment: Perf ormed at: CB - [facility] [place] [address], [place], [place] [id number] Tongue Presser: J Carlos Blackman PhD, Phone: [phone] PERFORMED BY: [facility] [address] [place] [address] PATHOLOGIST COMPUTER MECHANIC OTTO HARLEY M.D. Performed By: #### O BS-GUAIAC #### [facility] [address] Glucose [Mass/volume] in Ser um or PlasmaOrdered By: Bertha Cuevas on 02-26-2024 Glucose [Mass/Vol] 104 mg/dL High 70-100 [facility] Comment on above: ADA recommended refe rence rangeRandom Glucose Reference Range is dependent on time and content of last meal. Glucose of more than 200 mg/dL in a nonstressed, ambulatory subject supports the diagnosis of Diabetes Mellitus. Result Comment: [employer] om Glucose Reference Range is dependent on time and content of last meal. Glucose of more than 200 mg/dL in a nonstressed, ambulatory subject supports the diagnosis of Diabetes Mellitus. ADA recommended reference range Performed By: #### P LT AB S, SPE, RA, HBSAG, HIV SCREEN, KAPPA, HBSAB, HCV RX PCR, CAMILA, SADIE, HBCAB, SKIP SERUM, CU ####[facility] ,#### FISH NOT BLAD, MARÍA, TSH3, FLOW NEOGENOMIC, CMP, RETIC, CYTOGENE, SCAN CBC, FE and TIBC, T4F, [id number], LDH ####[facility] [id number] [address] HIV 1/O/2 Antigen/Antibodyon 02-26-2024 HIV Screen 4th Generation Non-Reactive Normal Non Reactive [facility] Comment on above: Result Comment: HIV Negative HIV-1/HIV-2 antibodies and HIV-1 p24 antigen were NOT detected. There is no laboratory evidence of HIV infection. Performed at: - [facility] [id number] Tongue Presser: J Carlos Blackman PhD, Phone: [phone] Performed By: #### O BS-GUAIAC #### [facility] [address] HIV 1 and HIV-2 antibody ass ay with HIV-1 p24 antigen detectionOrdered By: Bertha Cuevas on 02-26-2024 HIV 1+2 Ab+HIV1 p24 Ag IA Ql Non-Reactive Non Reactive [facility] Comment on above: HIV NegativeHIV-1/HI V-2 antibodies and HIV-1 p24 antigen were NOTdetected. There is no laboratory evidence of HIV infection.Performed at: [facility] [address] [id number] Director: J Carlos Blackman PhD, Phone: [phone] Hematocrit [Volume Fraction] of Blood by Automated countOrdered By: Bertha Pearce on 02-26-2024 Hematocrit (Bld) [Volume fraction] 27.0 % Low 38.8-50.0 [facility] Comment on above: Performed By: #### P LT AB S, SPE, RA, HBSAG, HIV SCREEN, KAPPA, HBSAB, HCV RX PCR, CAMILA, SADIE, HBCAB, SKIP SERUM, CU ####[facility] ,#### FISH NOT BLAD, MARÍA, TSH3, FLOW NEOGENOMIC, CMP, RETIC, CYTOGENE, SCAN CBC, FE and TIBC, T4F, [id number], LDH ####[facility] [id number] Hemoglobin [Mass/volume] in BloodOrdered By: Bertha Cuevas on 02-26-2024 Hemoglobin (Bld) [Mass/Vol] 9.3 g/dL Low 13.0-17.0 [facility] Comment on above: Performed By: #### P LT AB S, SPE, RA, HBSAG, HIV SCREEN, KAPPA, HBSAB, HCV RX PCR, CAMILA, SADIE, HBCAB, SKIP SERUM, CU ####[facility] ,#### FISH NOT BLAD, MARÍA, TSH3, FLOW NEOGENOMIC, CMP, RETIC, CYTOGENE, SCAN CBC, FE and TIBC, T4F, [id number], LDH ####[facility] Hep C Ab wRfx to Qnt PCRon 0 02-26-2024 Hepatitis C Virus Antibody Non-Reactive Normal Non Reactive [facility] Comment on above: Performed By: #### C BC #### [address] Interpretation Hepatitis C Normal . [facility] Comment on above: Result Comment: Not infected with HCV unless early or acute infection is suspected (which may be delayed in an immunocompromised individual), or other evidence exists to indicate HCV infection. Performed By: #### C BC #### [address] Hepatitis B Core Antibodyon 02-26-2024 Hepatitis B Core Antibody Positive Critically abnormal Negative [facility] Comment on above: Result Comment: Perf ormed at: - [facility] [id number] Tongue Presser: J Carlos Blackman PhD, Phone: [phone] Performed By: #### C BC #### [address] Hepatitis B Surface Antibody on 02-26-2024 Hepatitis B Surface Antibody Reactive Normal . [facility] Comment on above: Result Comment: Non Reactive: Inconsistent with immunity, less than 10 mIU/mL Reactive: Consistent with immunity, greater than 9.9 mIU/mL Performed By: #### C BC #### [address] Hepatitis B Surface Antigeno n 02-26-2024 HBsAg Screen Negative Normal Negative [facility] Comment on above: Result Comment: PERF ORMED BY: [place] [address] PATHOLOGIST COMPUTER MECHANIC OTTO HARLEY M.D. Performed By: #### C BC #### [address] Hepatitis B virus surface Ab [Presence] in SerumOrdered By: Bertha Cuevas on 02-26-2024 HBV surface Ab Ql (S) Reactive . [facility] Comment on above: Non Reactive: Incons istent with immunity, less than 10 mIU/mL Reactive: Consistent with immunity, greater than 9.9 mIU/mL Hepatitis B virus surface Ag [Presence] in Serum or Plasma by ImmunoassayOrdered By: Bertha Cuevas on 02-26-2024 HBV surface Ag IA Ql Negative Negative [facility] Hepatitis C virus IgG Ab [Pr esence] in Serum or Plasma by ImmunoassayOrdered By: Bertha Cuevas on 02-26-2024 HCV IgG IA Ql Non-Reactive Non Reactive [facility] IgA [Mass/volume] in Serum o r PlasmaOrdered By: artem Cuevas on 02-26-2024 IgA [Mass/Vol] 3828 mg/dL 61-437 [facility] Comment on above: Results confirmed on dilution. IgG [Mass/volume] in Serum o r PlasmaOrdered By: Bertha Cuevas on 02-26-2024 IgG [Mass/Vol] 667 mg/dL 603-1613 [facility] IgM [Mass/volume] in Serum o r PlasmaOrdered By: Bertha Cuevas on 02-26-2024 IgM [Mass/Vol] 16 mg/dL 15-143 [facility] Comment on above: Result confirmed on concentration.Performed at: [place] [id number] Director: J Carlos Blackman PhD, Phone: [phone] Immunofixation,Serumon 02-25 Immunofixation, Serum Abnormal . [facility] Comment on above: Result Comment: Immu nofixation shows IgA monoclonal protein with kappa light chain specificity. Performed By: #### O BS-GUAIAC #### [facility] [address] [place] [address] [place] Immunoglobulin A, Serum 3828 mg/dL High 61-437 [facility] Comment on above: Result Comment: Resu lts confirmed on dilution. Performed By: #### O BS-GUAIAC #### [facility] [address] [place] [address] [place] Immunoglobulin G 667 mg/dL Normal 603-1613 [facility] Comment on above: Performed By: #### O BS-GUAIAC #### [facility] [address] Immunoglobulin M, Serum 16 mg/dL Normal 15-143 [facility] Comment on above: Result Comment: Resu lt confirmed on concentration. Performed at: - [facility] [place] [address] [place] [address] Tongue Presser: J Carlos Blackman PhD, Phone: [phone] Performed By: #### O BS-GUAIAC #### [facility] [address] Immunoglobulin light chains. kappa.free [Mass/volume] in SerumOrdered By: Bertha Cuevas on 02-26-2024 Immunoglobulin light chains.kappa.free (S) [Mass/Vol] 1354.4 mg/L 3.3-19.4 [facility] Immunoglobulin light chains. kappa.free/Immunoglobulin light chains.lambda.free [MassOrdered By: Bertha Cuevas on 02-26-2024 Immunoglobulin light chains.kappa.free/Immu noglobulin light chains.lambda.free (S) [Mass ratio] 134.10 0.26-1.65 [facility] Comment on above: Performed at: - [facility] [id number] [place], [place] [address]Lab Director: J Carlos Blackman PhD, Phone: [phone] Immunoglobulin light chains. lambda.free [Mass/volume] in Serum or PlasmaOrdered By: Bertha Cuevas on 02-26-2024 Immunoglobulin light chains.lambda.free [Mass/Vol] 10.1 mg/L 5.7-26.3 [facility] Iron [Mass/volume] in Serum or PlasmaOrdered By: Bertha Cuevas on 02-26-2024 Iron [Mass/Vol] 139 ug/dL Normal 50-212 [facility] Comment on above: Performed By: #### C BC #### [address] Iron and TIBC Profileon 06-0 % Iron Saturation 64.1 % High 20-50 [facility] Comment on above: Performed By: #### C BC #### [facility] [address] Total Iron Binding Capacity 217 ug/dL Low 255-450 [facility] Comment on above: Performed By: #### C BC #### [facility] [address] [place] [id number] [facility] Iron binding capacity [Mass/ volume] in Serum or PlasmaOrdered By: Bertha Cuevas on 02-26-2024 Iron binding capacity [Mass/Vol] 217 ug/dL 255-450 [facility] Iron saturation [Mass Fracti on] in Serum or PlasmaOrdered By: Bertha Cuevas on 02-26-2024 Iron saturation [Mass fraction] 64.1 % 20-50 [facility] LDH Lactate Dehydrogenaseon 02-26-2024 LDH Lactate Dehydrogenase 118 U/L Low 140-271 [facility] Comment on above: Performed By: #### P LT AB S, SPE, RA, HBSAG, HIV SCREEN, KAPPA, HBSAB, HCV RX PCR, CAMILA, SADIE, HBCAB, SKIP SERUM, CU ####[facility] ,#### FISH NOT BLAD, MARÍA, TSH3, FLOW NEOGENOMIC, CMP, RETIC, CYTOGENE, SCAN CBC, FE and TIBC, T4F, [id number], LDH ####[facility] [id number] [place] [id number] [facility] Laboratory - Chemistry and C hemistry - challengeOrdered By: Bertha Cuevas on 02-26-2024 Protein [Mass/Vol] 3.7 g/dL Not Observed [facility] Lactate dehydrogenase [Enzym atic activity/volume] in Serum or Plasma by Lactate to pyOrdered By: Bertha Cuevas on 02-26-2024 LDH Lactate to pyruvate reaction [Catalytic activity/Vol] 118 U/L 140-271 [facility] Leukocytes [#/volume] correc myrtle for nucleated erythrocytes in Blood by Automated counOrdered By: Bertha Cuevas on 02-26-2024 WBC corrected for nucl RBC Auto (Bld) [#/Vol] 2.5 10*3/uL 4.1-10.5 [facility] Leukocytes [#/volume] in Blo od by Automated countOrdered By: Bertha Cuevas on 02-26-2024 WBC (Bld) [#/Vol] 2.5 10*3/uL Low 4.1-10.5 [facility] Comment on above: Performed By: #### P LT AB S, SPE, RA, HBSAG, HIV SCREEN, KAPPA, HBSAB, HCV RX PCR, CAMILA, SADIE, HBCAB, SKIP SERUM, CU ####[facility] ,#### FISH NOT BLAD, MARÍA, TSH3, FLOW NEOGENOMIC, CMP, RETIC, CYTOGENE, SCAN CBC, FE and TIBC, T4F, [id number], LDH ####[facility] [id number] [place] [address] [place] Lymphocytes [#/volume] in Bl ood by Automated countOrdered By: Bertha Cuevas on 02-26-2024 Lymphocytes (Bld) [#/Vol] 1.1 10*3/uL Normal 1.00-4.8 [facility] Comment on above: Performed By: #### P LT AB S, SPE, RA, HBSAG, HIV SCREEN, KAPPA, HBSAB, HCV RX PCR, CAMILA, SADIE, HBCAB, SKIP SERUM, CU ####[facility] ,#### FISH NOT BLAD, MARÍA, TSH3, FLOW NEOGENOMIC, CMP, RETIC, CYTOGENE, SCAN CBC, FE and TIBC, T4F, [id number], LDH ####[facility] [id number] [place] [address] [place] Lymphocytes/100 leukocytes i n Blood by Automated countOrdered By: Bertha Cuevas on 02-26-2024 Lymphocytes/100 WBC (Bld) 43.0 % Normal . [facility] Comment on above: Performed By: #### P LT AB S, SPE, RA, HBSAG, HIV SCREEN, KAPPA, HBSAB, HCV RX PCR, CAMILA, SADIE, HBCAB, SKIP SERUM, CU ####[facility] ,#### FISH NOT BLAD, MARÍA, TSH3, FLOW NEOGENOMIC, CMP, RETIC, CYTOGENE, SCAN CBC, FE and TIBC, T4F, [id number], LDH ####[address] MCH [Entitic mass] by Automa myrtle countOrdered By: Bertha Cuevas on 02-26-2024 MCH (RBC) [Entitic mass] 35.7 pg High 27.5-35.2 [facility] Comment on above: Performed By: #### P LT AB S, SPE, RA, HBSAG, HIV SCREEN, KAPPA, HBSAB, HCV RX PCR, CAMILA, SADIE, HBCAB, SKIP SERUM, CU ####[facility] ,#### FISH NOT BLAD, MARÍA, TSH3, FLOW NEOGENOMIC, CMP, RETIC, CYTOGENE, SCAN CBC, FE and TIBC, T4F, [id number], LDH ####[address] MCHC Auto (RBC) [Mass/Vol]Or dered By: artem Cuevas on 02-26-2024 MCHC (RBC) [Mass/Vol] 34.4 g/dL 32.5-35.6 [facility] MCV [Entitic volume] by Auto mated countOrdered By: Bertha Cuevas on 02-26-2024 MCV (RBC) [Entitic vol] 103.8 fL High 83.5-101 [facility] Comment on above: Performed By: #### P LT AB S, SPE, RA, HBSAG, HIV SCREEN, KAPPA, HBSAB, HCV RX PCR, CAMILA, SADIE, HBCAB, SKIP SERUM, CU ####[facility] ,#### FISH NOT BLAD, MARÍA, TSH3, FLOW NEOGENOMIC, CMP, RETIC, CYTOGENE, SCAN CBC, FE and TIBC, T4F, [id number], LDH ####[address] Macrocytes LM Ql (Bld)Ordere d By: Bertha Cuevas on 02-26-2024 Macrocytes Ql (Bld) Slight [facility] Neutrophils [#/volume] in Bl ood by Automated countOrdered By: Bertha Cuevas on 02-26-2024 Neutrophils (Bld) [#/Vol] 1.1 10*3/uL Low 1.8-7.7 [facility] Comment on above: Performed By: #### P LT AB S, SPE, RA, HBSAG, HIV SCREEN, KAPPA, HBSAB, HCV RX PCR, CAMILA, SADIE, HBCAB, SKIP SERUM, CU ####[facility] ,#### FISH NOT BLAD, MARÍA, TSH3, FLOW NEOGENOMIC, CMP, RETIC, CYTOGENE, SCAN CBC, FE and TIBC, T4F, [id number], LDH ####[facility] [address] No Panel InformationOrdered By: Bertha Cuevas on 02-26-2024 Anti-Nuclear Antibody Comment 2 See comment . [facility] Comment on above: Pattern Potential Di sease Association Homogeneous Systemic Lupus Erythematosus, Drug Induced Systemic Lupus Erythematosus, Chronic Autoimmune hepatitis, Juvenile Idiopathic Arthritis Speckled Sjogren Syndrome, Systemic Lupus Erythematosus, Subacute Cutaneous Lupus, Lupus, Congenital Heart Block, Mixed Connective Tissue Disease, Scleroderma-diffuse, Scleroderma-Autoimmune Myositis Overlap Syndrome, Systemic Lupus Vjaurysalhbnj-Wsowbimrird-Vowbmzksku Myositis Overlap Syndrome, Systemic Autoimmune Rheumatic Disease, Undifferentiated Connective Tissue Disease Nucleolar Systemic Sclerosis, Scleroderma-Autoimmune Myositis Overlap Syndrome, Sjogren Syndrome, Raynaud phenomenon, Pulmonary Arterial Hypertension, Systemic Autoimmune Rheumatic Disease, Cancer Centromere Scleroderma-CREST, Limited Cutaneous SSc, Raynaud's Phenomenon, Primary Biliary Cholangitis Nuclear Dot Primary Biliary Cholangitis Nuclear Primary Biliary Cholangitis, AutoimmuneMembrane Hepatitis/Liver disease, Systemic Autoimmune Rheumatic Disease, Autoimmune Cytopenias, Linear Scleroderma, Antiphospholipid Syndrome Performed at: [facility] [id number] [place], [place] [id number] Director: J Carlos Blackman PhD, Phone: [phone] Anti-Platelet Glycoprotein IV Negative Negative [facility] Comment on above: Performed at: [facility] [address] [id number] Director: Mary Jane Maya MD, Phone: [phone] Comment (FISH) See comment [facility] Comment on above: See report. Scanned copy available in EMR. Estimated GFR (CKD-EPI) 50.358 mL/Min [facility] Hepatitis B Core Total Antibody Positive Negative [facility] Comment on above: Performed at: [facility] [address] [id number] Director: J Carlos Blackman PhD, Phone: [phone] Hepatitis C Interpretation See comment . [facility] Comment on above: Not infected with HC V unless early or acute infection issuspected (which may be delayed in an immunocompromisedindividual), or other evidence exists to indicate HCVinfection. Pharmacy Creatinine Clearance (Chem 43.64 [facility] Protein Electrophoresis Note See comment . [facility] Comment on above: Protein electrophore sis scan will follow via computer,mail, or medical administrative delivery.Performed at: [facility] [address] [id number] Director: J Carlos Blackman PhD, Phone: [phone] Serum Immunofixation See comment . [facility] Comment on above: Immunofixation shows IgA monoclonal protein with kappalight chain specificity. Nucleated erythrocytes [Pres ence] in Blood by Automated countOrdered By: Bertha Cuevas on 02-26-2024 Nucleated RBC Auto Ql (Bld) 0.2 /100{WBC} 0-0.5 [facility] Platelet Antibody, Serumon 0 02-26-2024 GLycoprotein IV Antibody Negative Normal Negative [facility] Comment on above: Result Comment: Perf ormed at: - [facility] [address] [id number] Tongue Presser: Mary Jane Maya MD, Phone: [phone] Performed By: #### O BS-GUAIAC #### [facility] [address] [place] [address] [place] Hla Class 1 Antibody Negative Normal Negative [facility] Comment on above: Performed By: #### O BS-GUAIAC #### [facility] [address] [place] [address] [place] Ia/IIa Antibodies Negative Normal Negative [facility] Comment on above: Performed By: #### O BS-GUAIAC #### [place] [address] [place] Ib/IX Antibody Negative Normal Negative [facility] Comment on above: Performed By: #### O BS-GUAIAC #### [facility] [address] IIb/IIIa Antibody Negative Normal Negative [facility] Comment on above: Performed By: #### O BS-GUAIROBBI #### [facility] [address] Platelet adequacy [Presence] in Blood by Light microscopyOrdered By: artem Pearce on 02-26-2024 Platelets LM Ql (Bld) Decreased Normal [facility] Platelet mean volume [Entiti c volume] in Blood by Automated countOrdered By: artem Cuevas on 02-26-2024 Platelet mean volume (Bld) [Entitic vol] 7.0 fL Normal 6.6-10.1 [facility] Comment on above: Performed By: #### P LT AB S, SPE, RA, HBSAG, HIV SCREEN, KAPPA, HBSAB, HCV RX PCR, CAMILA, SADIE, HBCAB, SKIP SERUM, CU ####[facility] ,#### FISH NOT BLAD, MARÍA, TSH3, FLOW NEOGENOMIC, CMP, RETIC, CYTOGENE, SCAN CBC, FE and TIBC, T4F, [id number], LDH ####[facility] [id number] Platelet morphology finding [Identifier] in BloodOrdered By: Bertha Cuevas on 02-26-2024 Platelet morphology finding Nom (Bld) Normal Normal [facility] Platelets [#/volume] in Bloo d by Automated countOrdered By: artem Cuevas on 02-26-2024 Platelets (Bld) [#/Vol] 83 10*3/uL Low 150-450 [facility] Comment on above: Performed By: #### P LT AB S, SPE, RA, HBSAG, HIV SCREEN, KAPPA, HBSAB, HCV RX PCR, CAMILA, SADIE, HBCAB, SKIP SERUM, CU ####[facility] ,#### FISH NOT BLAD, MARÍA, TSH3, FLOW NEOGENOMIC, CMP, RETIC, CYTOGENE, SCAN CBC, FE and TIBC, T4F, [id number], LDH ####[facility] Potassium [Moles/volume] in Serum or PlasmaOrdered By: Bertha Cuevas on 02-26-2024 Potassium [Moles/Vol] 4.2 mmol/L Normal 3.5-5.1 [facility] Comment on above: Performed By: #### P LT AB S, SPE, RA, HBSAG, HIV SCREEN, KAPPA, HBSAB, HCV RX PCR, CAMILA, SADIE, HBCAB, SKIP SERUM, CU ####[facility] ,#### FISH NOT BLAD, MARÍA, TSH3, FLOW NEOGENOMIC, CMP, RETIC, CYTOGENE, SCAN CBC, FE and TIBC, T4F, [id number], LDH ####[place] [address] [address] Protein Electrophoresis, Ser umon 02-26-2024 Gghwn-1-Iylqirgg 0.3 g/dL Normal 0.0-0.4 [facility] Comment on above: Performed By: #### O BS-GUAIAC #### [address] Xvikg-1-Juzxmdze 0.9 g/dL Normal 0.4-1.0 [facility] Comment on above: Performed By: #### O BS-GUAIAC #### [address] Beta Globulin 4.4 g/dL High 0.7-1.3 [facility] Comment on above: Performed By: #### O BS-GUAIAC #### [address] Gamma Globulin 0.6 g/dL Normal 0.4-1.8 [facility] Comment on above: Performed By: #### O BS-GUAIAC #### [address] M-Kody 3.7 g/dL High Not Observed [facility] Comment on above: Performed By: #### O BS-GUAIAC #### [address] [address] [place] SPE-Note Normal . [facility] Comment on above: Result Comment: Prot ein electrophoresis scan will follow via computer, mail, or medical administrative delivery. Performed at: - [facility] [id number] Tongue Presser: J Carlos Blackman PhD, Phone: [phone] Performed By: #### O BS-GUAIAC #### [facility] [address] Protein [Mass/volume] in Ser um or PlasmaOrdered By: Bertha Cuevas on 02-26-2024 Protein [Mass/Vol] 9.9 g/dL High 6.4-8.9 [facility] Comment on above: Performed By: #### P LT AB S, SPE, RA, HBSAG, HIV SCREEN, KAPPA, HBSAB, HCV RX PCR, CAMILA, SADIE, HBCAB, SKIP SERUM, CU ####[facility] ,#### FISH NOT BLAD, MARÍA, TSH3, FLOW NEOGENOMIC, CMP, RETIC, CYTOGENE, SCAN CBC, FE and TIBC, T4F, [id number], LDH ####[facility] [id number] Protein [Mass/Vol] 9.6 g/dL High 6.0-8.5 [facility] Comment on above: Performed By: #### O BS-GUAIAC #### [facility] [address] RBC morphologyOrdered By: Edny Cuevas on 02-26-2024 RBC morphology finding Nom (Bld) Normal Normal Normal [facility] Comment on above: Performed By: #### P LT AB S, SPE, RA, HBSAG, HIV SCREEN, KAPPA, HBSAB, HCV RX PCR, CAMILA, SADIE, HBCAB, SKIP SERUM, CU ####[facility] ,#### FISH NOT BLAD, MARÍA, TSH3, FLOW NEOGENOMIC, CMP, RETIC, CYTOGENE, SCAN CBC, FE and TIBC, T4F, [id number], LDH ####[facility] Reticulocyte Counton 024 Reticulocyte Number 0.002 10*6/uL Low 0.024-0 .08 4 [facility] Comment on above: Result Comment: PERF ORMED BY: [place] [address] PATHOLOGIST COMPUTER MECHANIC OTTO HARLEY M.D. Performed By: #### P LT AB S, SPE, RA, HBSAG, HIV SCREEN, KAPPA, HBSAB, HCV RX PCR, CAMILA, SADIE, HBCAB, SKIP SERUM, CU ####[facility] ,#### FISH NOT BLAD, MARÍA, TSH3, FLOW NEOGENOMIC, CMP, RETIC, CYTOGENE, SCAN CBC, FE and TIBC, T4F, [id number], LDH ####[place] [address] [address] Reticulocyte Percent 0.1 % Low 0.5-1.5 [facility] Comment on above: Performed By: #### P LT AB S, SPE, RA, HBSAG, HIV SCREEN, KAPPA, HBSAB, HCV RX PCR, CAMILA, SADIE, HBCAB, SKIP SERUM, CU ####[facility] ,#### FISH NOT BLAD, MARÍA, TSH3, FLOW NEOGENOMIC, CMP, RETIC, CYTOGENE, SCAN CBC, FE and TIBC, T4F, [id number], LDH ####[facility] Reticulocytes/100 RBC Auto ( Bld)Ordered By: Bertha Cuevas on 02-26-2024 Reticulocytes/100 RBC (Bld) 0.1 % 0.5-1.5 [facility] Rheumatoid Factoron 02-26-20 24 Rheumatoid Factor 12.8 Normal <14.0 [facility] Comment on above: Performed By: #### O BS-GUAIAC #### [address] Scan and CBCon 02-26-2024 Macrocytosis Slight Normal [facility] Comment on above: Performed By: #### P LT AB S, SPE, RA, HBSAG, HIV SCREEN, KAPPA, HBSAB, HCV RX PCR, CAMILA, SADIE, HBCAB, SKIP SERUM, CU ####[facility] ,#### FISH NOT BLAD, MARÍA, TSH3, FLOW NEOGENOMIC, CMP, RETIC, CYTOGENE, SCAN CBC, FE and TIBC, T4F, [id number], LDH ####[address] Mean Corpuscular HGB Conc 34.4 g/dL Normal 32.5-35.6 [facility] Comment on above: Performed By: #### P LT AB S, SPE, RA, HBSAG, HIV SCREEN, KAPPA, HBSAB, HCV RX PCR, CAMILA, SADIE, HBCAB, SKIP SERUM, CU ####[facility] ,#### FISH NOT BLAD, MARÍA, TSH3, FLOW NEOGENOMIC, CMP, RETIC, CYTOGENE, SCAN CBC, FE and TIBC, T4F, [id number], LDH ####[address] NRBC% 0.2 /100{WBC} Normal 0-0.5 [facility] Comment on above: Performed By: #### P LT AB S, SPE, RA, HBSAG, HIV SCREEN, KAPPA, HBSAB, HCV RX PCR, CAMILA, SADIE, HBCAB, SKIP SERUM, CU ####[facility] ,#### FISH NOT BLAD, MARÍA, TSH3, FLOW NEOGENOMIC, CMP, RETIC, CYTOGENE, SCAN CBC, FE and TIBC, T4F, [id number], LDH ####[address] Platelet Estimate Decreased Normal Normal [facility] Comment on above: Performed By: #### P LT AB S, SPE, RA, HBSAG, HIV SCREEN, KAPPA, HBSAB, HCV RX PCR, CAMILA, SADIE, HBCAB, SKIP SERUM, CU ####[facility] ,#### FISH NOT BLAD, MARÍA, TSH3, FLOW NEOGENOMIC, CMP, RETIC, CYTOGENE, SCAN CBC, FE and TIBC, T4F, [id number], LDH ####[facility] Platelet Morphology Normal Normal Normal [facility] Comment on above: Performed By: #### P LT AB S, SPE, RA, HBSAG, HIV SCREEN, KAPPA, HBSAB, HCV RX PCR, CAMILA, SADIE, HBCAB, SKIP SERUM, CU ####[facility] ,#### FISH NOT BLAD, MARÍA, TSH3, FLOW NEOGENOMIC, CMP, RETIC, CYTOGENE, SCAN CBC, FE and TIBC, T4F, [id number], LDH ####[place] [address] [address] Serum HLA antibody detection by immunoassayOrdered By: Bertha Cuevas on 02-26-2024 HLA Ab IA Ql (S) Negative Negative [facility] Serum angiotensin converting enzyme (SADIE) measurementOrdered By: Bertha Cuevas on 02-26-2024 Angiotensin converting enzyme [Catalytic activity/Vol] 25 U/L Normal 14-82 [facility] Comment on above: Performed at: - [facility] [place] [id number] Director: J Carlos Blackman PhD, Phone: [phone] Result Comment: Perf ormed at: CB - [facility] [place] [address] Tongue Presser: J Carlos Blackman PhD, Phone: [phone] Performed By: #### C BC #### [address] Serum globulin measurement ( mass/volume)Ordered By: Bertha Cuevas on 02-26-2024 Globulin (S) [Mass/Vol] 6.2 g/dL High 2.2-3.9 [facility] Comment on above: Performed By: #### O BS-GUAIAC #### [facility] [address] Serum globulin measurement b y calculation (mass/volume)Ordered By: Bertha Pearce on 02-26-2024 Globulin (S) [Mass/Vol] 6.4 g/dL Normal [facility] Comment on above: Performed By: #### P LT AB S, SPE, RA, HBSAG, HIV SCREEN, KAPPA, HBSAB, HCV RX PCR, CAMILA, SADIE, HBCAB, SKIP SERUM, CU ####[facility] ,#### FISH NOT BLAD, MARÍA, TSH3, FLOW NEOGENOMIC, CMP, RETIC, CYTOGENE, SCAN CBC, FE and TIBC, T4F, [id number], LDH ####[facility] Serum homogeneous pattern an tinuclear antibody (CAMILA) titerOrdered By: artem Pearce on 02-26-2024 Homogenous nuclear Ab pattern (S) [Titer] 1:320 . [facility] Comment on above: ICAP nomenclature: A C-1 Serum nuclear antibody titer Ordered By: artem Cuevas on 02-26-2024 Nuclear Ab (S) [Titer] Positive . [facility] Comment on above: Negative <1:80 Borde rline 1:80 Positive >1:80 Serum or plasma albumin/glob ulin mass ratioOrdered By: artem uCevas on 02-26-2024 Albumin/Globulin [Mass ratio] 0.5 {ratio} Low 0.7-1.7 [facility] Comment on above: Performed By: #### P LT AB S, SPE, RA, HBSAG, HIV SCREEN, KAPPA, HBSAB, HCV RX PCR, CAMILA, SADIE, HBCAB, SKIP SERUM, CU ####[facility] ,#### FISH NOT BLAD, MARÍA, TSH3, FLOW NEOGENOMIC, CMP, RETIC, CYTOGENE, SCAN CBC, FE and TIBC, T4F, [id number], LDH ####[facility] Performed By: #### O BS-GUAIAC #### [facility] [address] Serum or plasma alpha 1 glob ulin measurement by electrophoresis (mass/volume)Ordered By: Bertha Cuevas on 02-26-2024 Alpha 1 globulin Elph [Mass/Vol] 0.3 g/dL 0.0-0.4 [facility] Serum or plasma alpha 2 glob ulin measurement by electrophoresis (mass/volume)Ordered By: Bertha Cuevas on 02-26-2024 Alpha 2 globulin Elph [Mass/Vol] 0.9 g/dL 0.4-1.0 [facility] Serum or plasma anion gap de terminationOrdered By: Bertha Cuevas on 02-26-2024 Anion gap [Moles/Vol] 16.0 mmol/L High 6.0-15.0 [facility] Comment on above: Performed By: #### P LT AB S, SPE, RA, HBSAG, HIV SCREEN, KAPPA, HBSAB, HCV RX PCR, CAMILA, SADIE, HBCAB, SKIP SERUM, CU ####[facility] ,#### FISH NOT BLAD, MARÍA, TSH3, FLOW NEOGENOMIC, CMP, RETIC, CYTOGENE, SCAN CBC, FE and TIBC, T4F, [id number], LDH ####[facility] [id number] Serum or plasma beta globuli n measurement by electrophoresis (mass/volume)Ordered By: Bertha Cuevas on 02-26-2024 Beta globulin Elph [Mass/Vol] 4.4 g/dL 0.7-1.3 [facility] Serum or plasma gamma globul in measurement by electrophoresis (mass/volume)Ordered By: Bertha Cuevas on 02-26-2024 Gamma globulin Elph [Mass/Vol] 0.6 g/dL 0.4-1.8 [facility] Serum or plasma rheumatoid f actor measurement (units/volume)Ordered By: Bertha Cuevas on 02-26-2024 Rheumatoid factor Qn 12.8 [IU]/mL <14.0 [facility] Serum platelet glycoprotein IIb/IIIa antibody detection by immunoassayOrdered By: Bertha Cuevas on 02-26-2024 Platelet glycoprotein IIb/IIIa Ab IA Ql (S) Negative Negative [facility] Serum platelet glycoprotein Ia/IIa antibody detection by immunoassayOrdered By: Bertha Cuevas on 02-26-2024 Platelet glycoprotein Ia/IIa Ab IA Ql (S) Negative Negative [facility] Sodium [Moles/volume] in Ser um or PlasmaOrdered By: Bertha Cuevas on 02-26-2024 Sodium [Moles/Vol] 141 mmol/L Normal 136-145 [facility] Comment on above: Performed By: #### P LT AB S, SPE, RA, HBSAG, HIV SCREEN, KAPPA, HBSAB, HCV RX PCR, CAMILA, SADIE, HBCAB, SKIP SERUM, CU ####[facility] ,#### FISH NOT BLAD, MARÍA, TSH3, FLOW NEOGENOMIC, CMP, RETIC, CYTOGENE, SCAN CBC, FE and TIBC, T4F, [id number], LDH ####[facility] [id number] Thyrotropin [Units/volume] i n Serum or PlasmaOrdered By: Bertha Cuevas on 02-26-2024 TSH Qn 1.44 m[IU]/L Normal 0.45-5.33 [facility] Comment on above: Result Comment: PERF ORMED BY: [place] [address] PATHOLOGIST COMPUTER MECHANIC OTTO HARLEY M.D. Performed By: #### C BC #### [facility] [address] [place] [address] [place] Thyroxine (T4) free [Mass/vo lume] in Serum or PlasmaOrdered By: Bertha Cuevas on 02-26-2024 Free T4 [Mass/Vol] 0.95 ng/dL Normal 0.61-1.12 [facility] Comment on above: Performed By: #### C BC #### [facility] [address] [place] [address] [place] Transferrin [Mass/volume] in Serum or PlasmaOrdered By: Bertha Cuevas on 02-26-2024 Transferrin [Mass/Vol] 155 mg/dL Low 203-362 [facility] Comment on above: Performed By: #### C BC #### [address] Urea nitrogen [Mass/volume] in Serum or PlasmaOrdered By: Bertha Cuevas on 02-26-2024 Urea nitrogen [Mass/Vol] 34 mg/dL High 7-25 [facility] Comment on above: Performed By: #### P LT AB S, SPE, RA, HBSAG, HIV SCREEN, KAPPA, HBSAB, HCV RX PCR, CAMILA, SADIE, HBCAB, SKIP SERUM, CU ####[facility] ,#### FISH NOT BLAD, MARÍA, TSH3, FLOW NEOGENOMIC, CMP, RETIC, CYTOGENE, SCAN CBC, FE and TIBC, T4F, [id number], LDH ####[facility] Tal[address] Vit. B12/Folate Profileon Folate > 49.6 Normal >5.9 [facility] Comment on above: Result Comment: Edwina te reference range: >5.9 ng/ml The WHO technical consultation on folate and vitamin b12 deficiencies has determined that folate concentrations less than 4 ng/ml are considered deficient. Performed By: #### C BC #### [address] Vitamin B12 ser/plasOrdered By: Bertha Cuevas on 02-26-2024 Cobalamin (Vitamin B12) [Mass/Vol] 1961 pg/mL High 180-914 [facility] Comment on above: Performed By: #### C BC #### [address] WATCHMAN FULL CONTRASTon 12-28-2023 CT WATCHMAN FULL CONTRAST Interpreted By: Carlitos Aguilera, STUDY: CT WATCHMAN FULL CONTRAST; 12/28/2023 10:40 am INDICATION: Signs/Symptoms:A-fib, Post-Watchman. COMPARISON: CT dated 08/28/2023 ACCESSION NUMBER(S): [id number] ORDERING CLINICIAN: RYAN COBB TECHNIQUE: Using multi [...] chest in 12 months may be obtained. (Springdalestephanie Galarzaholashon et al., Guidelines for management of incidental pulmonary nodules detected on CT images: From the Fleischner Society 2017, Radiology. 2017 Mar;284 (1):228-243.) RINA.ACR.IF.1 MACRO: None Signed by: Carlitos Aguilera 12/28/2023 11:32 AM Dictation workstation: [id number] [facility] No Panel Informationon 12-27 1. Status post Watch man device placement in the left atrial appendage. [...] chest in 12 months may be obtained. (Springdalestephanie Galarzaholashon et al., Guidelines for management of incidental pulmonary nodules detected on CT images: From the Fleischner Society 2017, Radiology. 2017 Nestor;284 (1):228-243.) RINA.ACR.IF.1 MACRO: None Signed by: Carlitos Aguilera 12/28/2023 11:32 AM Dictation workstation: [id number] Interpreted By: Carlitos Shah, STUDY: CT WATCHMAN FULL CONTRAST; 12/28/2023 10:40 am INDICATION: Signs/Symptoms:A-fib, Post-Watchman. COMPARISON: CT dated 08/28/2023 ACCESSION NUMBER(S): [id number] ORDERING CLINICIAN: RYAN COBB TECHNIQUE: Using multi [...] Post-Watchman. COMPARISON: CT dated 08/28/2023 ACCESSION NUMBER(S): [id number] ORDERING CLINICIAN: RYAN COBB TECHNIQUE: Using multi [...] Carlitos Aguilera 12/28/2023 11:32 AM Dictation workstation: [id number] [facility] Work Phone: Radiology Study observation (narrative) [facility] Work Phone: No Panel InformationOrdered By: Carlitos Aguilera on 12-28-2023 [facility] Work Phone: Ambulatory Visit Summaryon [...] spironolactone (spironolactone 25 mg Tab) thyroid desiccated (Stanford Thyroid) Procedures Performed Urethral dilatation (11/03/2022), TURP [...] Where: [facility] [address] , [place] [phone] Medications What How Much When Instructions Changed tolterodine (tolterodine 2 mg Cap-ER) 1 Capsules By Mouth As Directed Take one cap in the morning and one at dinnertime. Pickup at [facility]/pharmacy #[id number] Unchanged APAP/ butalbital/ caffeine (APAP/ butalbital/ caffeine [...] if questions or concerns Unchanged thyroid desiccated (Stanford Thyroid) By Mouth Every day Contact prescribing physician if questions or concerns Pharmacy Information [facility]/pharmacy #[id number]: [address], [place] [phone] Allergies No Known Allergies Problems Ongoing - Any problem that you are currently receiving treatment for. BPH with urinary obstruction Enuresis Hesitancy Hypertension Incomplete bladder emptying Intertrigo mild [place] (myocardial infarction) Nocturia Protein in urine Proteinuria [...] fr (more content not included)... Normal [facility] Patient Educationon 12-03-19 Patient Education Obstetrics and Gynec ology Overactive Bladder, Adult Overactive bladder is a [...] health care provider. General instructions ? Take nksb-noi-klotdai and prescription medicines only as told by [...] monitor yo (more content not included)... Normal [facility] Urology Office/Clinic Noteon 12-03-2023 Urology Office/Clinic [...] morning and night). New rx sent to [facility]. -Double void maneuvers 2. BPH [...] Trung Frost, URL [facility] [address] [place] [address] [phone] Additional Instructions: 6 mos (increase med dosage) [...] Hesitancy Hypertension Incomplete bladder emptying Intertrigo mild [place] (myocardial infarction) Nocturia Protein in urine Proteinuria Smoker Urethral meatal stenosis Urge incontinence Urinary incontinence without sensory awareness Urinary retention Historical No qualifying data Procedure/Surgical History Urethral dilatation (11/03/2022), TURP - Transurethral resection of prostate (08/31/2022), Cystoscopy (01/24/2022), Colonoscopy, Shoulder replacement. Medications APAP/butalbital/caffeine 325 mg-50 mg-40 mg Tab Stanford Thyroid, Oral, Daily atorvastatin, Oral, Daily Butapap [...] lifetime) Tobac (more content not included)... 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 CASE CANCELLED DUE TO LOW H&H. Normal [facility] Utilization Review Noteon Utilization Review Note Reg as EXT REC, no documents. NOT IPO Still no information from [facility] yet. Still no information from [facility] yet. Approved for outpatient per [facility]. Normal [facility] HEMOon 11-16-2023 Nucleated RBC 0 /100WBC Normal [facility] Comment on above: Performed By: #### 1 90109, 298858 ####[facility] [address]16 [place] [address] Medical Director: Eh Gould MD MAN DIFFon 11-16-[address] 0.12 x1000 Normal 0.00-0.70 [facility] Comment on above: Performed By: #### 1 50495, 394264 ####[facility] Uvhvrsaz[address]00 [place] [address] Medical Director: Eh Gould MD Absolute Eos Ct 0.07 x1000 Normal 0.00-0.50 [facility] Comment on above: Performed By: #### 1 42738, 238362 ####[facility] Kqtnzrvi29935 [place] [address] Medical Director: Eh Gould MD Absolute Lymph Ct 1.10 x1000 Low 1.20-4.80 [facility] [place] [facility] Comment on above: Performed By: #### 1 34748, 304576 ####[facility] Jovynyja[address]74 [place] [address] Medical Director: Eh Gould MD Absolute Neutrophil Ct 1.22 x1000 Low 1.40-8.80 [facility] Comment on above: Performed By: #### 1 , 594602 ####[facility] [address] [place] [address] Medical Director: Eh Gould MD Absolute Seg Ct 1.10 x1000 Low 1.40-8.80 [facility] Comment on above: Performed By: #### 1 , 182809 ####[facility] [address] [place] [address] Medical Director: Eh Gould MD Band form neutrophils/100 WBC (Bld) 5 % Normal [facility] Comment on above: Performed By: #### 1 , 865859 ####[facility] Asrjjwig77882 [place] [address] Medical Director: Eh Gould MD Eosinophils/100 WBC (Bld) 3 % Normal [facility] Comment on above: Performed By: #### 1 , 948032 ####[facility] Zcbmgabx82826 [place] [address] Medical Director: Eh Gould MD Lymphocytes/100 WBC (Bld) 46 % Normal [facility] Comment on above: Performed By: #### 1 62294, 705149 ####[facility] Nixhpapz24796 [place] [address] Medical Director: Eh Gould MD Macrocytosis Moderate Normal [facility] Comment on above: Performed By: #### 1 87908, 188321 ####[facility] Ddbhards32423 [place] [address] Medical Director: Eh Gould MD Segmented neutrophils/100 WBC (Bld) 46 % Normal [facility] Comment on above: Performed By: #### 1 30300, 649114 ####[facility] Hdquprdd46616 [place] [address] Medical Director: Eh Gould MD ABORHon 11-15-2023 ABOR Interpretation Positive Normal [facility] Comment on above: Performed By: #### C [id number], CD:[id number] #### [facility] [address] [place] [address] Spray Painting Machine Operator: Eh Gould MD Patient History Check Previous Hx Normal [facility] Comment on above: Performed By: #### C [id number], CD:[id number] #### [facility] [address] [place] [address] Spray Painting Machine Operator: Eh Gould MD VS 0.8% a cells 0 Normal [facility] Comment on above: Performed By: #### C D:[id number], CD:[id number] #### [facility] [address] [place] [address] Spray Painting Machine Operator: Eh Gould MD VS 0.8% b cells 3+ Normal [facility] Comment on above: Performed By: #### C D:[id number], CD:[id number] #### [facility] [address] [place] [address] Spray Painting Machine Operator: Eh Gould MD VS Anti-A Unit 4+ Normal [facility] Comment on above: Performed By: #### C D:[id number], CD:[id number] #### [facility] [address] [place] [address] Spray Painting Machine Operator: Eh Gould MD VS Anti-B Unit 0 [facility] Comment on above: Performed By: #### C D:[id number], CD:[id number] #### [facility] [address] [place] [address] Spray Painting Machine Operator: Eh Gould MD VS Anti-D Unit 4+ [facility] Comment on above: Performed By: #### C D:[id number], CD:[id number] #### [facility] [address] [place] [address] Spray Painting Machine Operator: Eh Gould MD ABSCon 11-15-2023 ABSC Final Interp Negative [facility] Comment on above: Performed By: #### C D:[id number], CD:[id number] #### [facility] [address] [place] [address] Spray Painting Machine Operator: Eh Gould MD Pt Hx check done? Yes [facility] Comment on above: Performed By: #### C D:[id number], CD:[id number] #### [facility] [address] [place] [address] Spray Painting Machine Operator: Eh Gould MD VS SCI Gel 0 [facility] Comment on above: Performed By: #### C D:[id number], CD:[id number] #### [facility] [address] [place] [address] Spray Painting Machine Operator: Eh Gould MD VS SCII Gel 0 [facility] Comment on above: Performed By: #### C D:[id number], CD:[id number] #### [facility] [address] [place] [address] Spr[employer] Painting Machine Operator: Eh Gould MD DVT/VTE Risk Factor-Texton 0 [...] Price RN - 11/15/2023 13:48 EST Normal [facility] HEMOon 11-15-2023 DIFF? Yes Normal [facility] Comment on above: Performed By: #### 1 51937, 532898 ####[facility] [address]3119 [place] [address] Medical Director: Eh Gould MD [facility] Actions See Notes Abnormal [facility] Comment on above: Result Comment: Scan for RBC Morphology Scan Slide. Perform manual diff if needed. SNV Performed By: #### 1 56637, 340550 ####[facility] Cysoxwhs[address]72 [place] [address] Medical Director: Eh Gould MD Erythrocyte distribution width (RBC) [Ratio] 14.5 % Normal 11.5-14.5 [facility] Comment on above: Performed By: #### 1 38779, 886698 ####[facility] Bwxastfw51762 [place] [address] Medical Director: Eh Gould MD Hematocrit (Bld) [Volume fraction] 25.3 % Low 41.0-52.0 [facility] Comment on above: Performed By: #### 1 93967, 465970 ####[facility] Lylrlvhf[address]32 [place] [address] Medical Director: Eh Gould MD Hemoglobin (Bld) [Mass/Vol] 8.7 g/dL Low 13.5-17.5 [facility] Comment on above: Performed By: #### 1 32222, 449472 ####[facility] [address] [place] 6596830 Medical Director: Eh Gould MD Instr WBC 2.4 Normal [facility] Comment on above: Performed By: #### 1 68064, 343523 ####[facility] Mff[address]ok[address]70945 [place], [place] [address]) [phone] Director: Eh Gould MD MCH (RBC) [Entitic mass] 38.3 pg High 27.0-34.0 [facility] Comment on above: Performed By: #### 1 , 619571 ####[facility] Vfkw[address]ml27990 [place], [place] [address]) [phone] Director: Eh Gould MD MCHC (RBC) [Mass/Vol] 34.6 g/dL Normal 32.0-37.0 [facility] Comment on above: Performed By: #### 1 , 048095 ####[facility] Xoyhtccc70821 [place], [place] [address]) [phone] Director: Eh Gould MD MCV (RBC) [Entitic vol] 110.6 fL High 80.0-100.0 [facility] Comment on above: Performed By: #### 1 67370, 458998 ####[facility] Hrete[address]z94026 [place], [place] [address]) [phone] Director: Eh Gould MD Platelet 142 x10 Low 150-450 [facility] Comment on above: Performed By: #### 1 , 417512 ####[facility] Zmffwlem03405 [place], [place] [address]) [phone] Director: Eh Gould MD Platelet mean volume (Bld) [Entitic vol] 6.4 fL Low 7.4-10.4 [facility] Comment on above: Performed By: #### 1 , 469472 ####[facility] Q[address] [place], [place] [address]) [phone] Director: Eh Gould MD RBC 2.29 x10 Low 4.70-6.10 [facility] Comment on above: Result Comment: Note : RBC morphology is normal unless otherwise stated. Evaluation performed only if differential is requested. Performed By: #### 1 63376, 613682 ####[facility] Chbvssrn00318 [place] [address] Medical Director: Eh Gould MD WBC 2.4 x10 Low 4.5-11.0 [facility] Comment on above: Performed By: #### 1 45178, 657861 ####[facility] Ctjxefib46284 [place] [address] [facility] Eh Goudl MD Preadmission Testing Progres s Noteon 11-15-2023 [...] Orders received during the phone conversation. Normal [facility] Preadmission Testing Progress Note PREADMISSION TESTING [...] must be reported to your surgeon. Normal [facility] UAon 11-15-2023 Appearance, U Clear Normal [facility] Comment on above: Performed By: #### 1 63805 #### [facility] [address] [place] [address] Spray Painting Machine Operator: Eh Gould MD Bilirubin, U Negative Normal Negative [facility] Comment on above: Performed By: #### 1 93106 #### [facility] [address] [place] [address] Spray Painting Machine Operator: Eh Gould MD Blood, U Small Abnormal Negative [facility] Comment on above: Performed By: #### 1 56907 #### [facility] [address] [place] [address] Spray Painting Machine Operator: Eh Gould MD Color, U Yellow Normal [facility] Comment on above: Performed By: #### 1 85540 #### [facility] [address] [place] [address] Spray Painting Machine Operator: Eh Gould MD Glucose Qual, U Negative Normal Negative [facility] Comment on above: Performed By: #### 1 47000 #### [facility] [address] [place] [address] 900[address] Spray Painting Machine Operator: Eh Gould MD Ketones, U Negative Normal Negative [facility] Comment on above: Performed By: #### 1 40024 #### [facility] [address] [place] [address] Spray Painting Machine Operator: Eh Gould MD Leukocyte Esterase, U Negative Normal Negative [facility] Comment on above: Performed By: #### 1 38703 #### [facility] [address] [place] [address] 6[address] Spray Painting Machine Operator: Eh Gould MD Mucous, U Occasional Normal [facility] Comment on above: Performed By: #### 1 79951 #### [facility] [address] [place] [address] Spray Painting Machine Operator: Eh Gould MD Nitrite, U Negative Normal Negative [facility] Comment on above: Performed By: #### 1 37481 #### [facility] [address] [place] [address] 50463 Spray Painting Machine Operator: Eh Gould MD pH, U 5.0 Normal 4.5-8.0 [facility] Comment on above: Performed By: #### 1 99060 #### [facility] [address] [place] [address] Spray Painting Machine Operator: Eh Gould MD Protein, U Negative Normal Negative [facility] Comment on above: Performed By: #### 1 98673 #### [facility] [address] [place] [address] 23075 Spray Painting Machine Operator: Eh Gould MD RBC/HPF, U <1 Normal 0-3 [facility] Comment on above: Performed By: #### 1 40319 #### [facility] [address] [place] [address] 32831 Spray Painting Machine Operator: Eh Gould MD Specific [place], U 1.014 Normal 1.001-1. 03 5 [facility] Comment on above: Performed By: #### 1 44197 #### [facility] [address] [place] [address] Spray Painting Machine Operator: Eh Gould MD Squamous Epithelial Cells, U <1 Normal [facility] Comment on above: Performed By: #### 1 59010 #### [facility] [address] [place] [address] 6[address] Spray Painting Machine Operator: Eh Gould MD U MICRO Indicated Normal [facility] Comment on above: Performed By: #### 1 84170 #### [facility] [address] [place] [address]395 Spray Painting Machine Operator: Eh Gould MD Urobilinogen Qual, U <2.0 mg/dl Normal <2.0 mg/dl [facility] Comment on above: Result Comment: EU/d l and mg/dl are equivalent units. Performed By: #### 1 55478 #### [facility] [address] [place] [address] Spray Painting Machine Operator: Eh Gould MD WBC/HPF, U 2 #/HPF Normal 0-5 [facility] Comment on above: Performed By: #### 1 05665 #### [facility] [address] [place] [address] 09258 Spray Painting Machine Operator: Eh Gould MD Preadmission Testing Progres s Noteon 11-14-2023 Preadmission Testing Progress Note Registration called P.A.T.,stating the pt. may not show and reschedule. Pt did not show for appointment. Called Dr. Shaffer's office. Spoke to Alexandra, she stated the CT foe watchman check is scheduled for the 20 of November and is needed for the clearance to be completed. Normal [facility] ABORHon 10-15-2023 ABORH CK Interp Positive Normal [facility] Comment on above: Performed By: #### C D:[id number], CD:[id number] #### [facility] [address] [place] [address] Spray Painting Machine Operator: Eh Gould MD Anti-A recheck 4+ Normal [facility] Comment on above: Performed By: #### C D:[id number], CD:[id number] #### [facility] [address] [place] [address]2004 Spray Painting Machine Operator: Eh Gould MD Anti-B recheck 0 Normal [facility] Comment on above: Performed By: #### C D:[id number], CD:[id number] #### [facility] [address] [place] [address] Spray Painting Machine Operator: Eh Gould MD Anti-D recheck 3+ Normal [facility] Comment on above: Performed By: #### C D:[id number], CD:[id number] #### [facility] [address] [place] [address] Spray Painting Machine Operator: Eh Gould MD Pathologist Reviewon 024 Diff [...] ruled out. Clinical correlation is recommended. Normal [facility] Comment on above: Order Comment: Added on by Discern Expert Rule. Result Comment: CAMILA ANA PAULA ZEPEDA (Electronic Signature) Date Verified 10/15/23 Performed By: #### 9 311676, 127535, 3799041, 901773, 572046, 108414 ####[facility] Hxpmtxzo68010 [place] [address] Medical Director: Eh Gould MD [...] on communication to Dr. Shaffer's office from [facility]ager. No response for . Patient on surgery schedule for tomorrow. Note reviewed patient is not cleared for surgery per Dr. Hernández. See scan with fax communication to . Obtained voice mail all available numbers for office, production planner scheduler and PA. Left messages on voice [...] patient and and notify surgery scheduling. Normal [facility] Utilization Review Noteon Utilization Review Note Reg as PRE ADMIT, no documents, NOT IPO. I will send to TH, needs changed to EXT. email sent to [facility] and surgery scheduling to change this to ext rec Surgery schedule updated to Ext Rec [facility] still has not updated registration, email was already sent to them by [facility]FF. Same as above. 10/16/23 LEFT REVERESE TOTAL SHOULDER REPLACEMENT CANCELED PER [facility]. CANCELLED. Normal [facility] ABORHon 10-12-2023 ABORH Interpretation Positive Normal [facility] Comment on above: Performed By: #### C D:[id number], CD:[id number] #### [facility] [address] [place], [place] [address] Spray Painting Machine Operator: Eh Gould MD Patient History Check No Previous Hx Normal [facility] Comment on above: Result Comment: 09/24 10:30 [id number] ABO Recheck to be ordered on admit. Surgery Date: 10/16/23 Performed By: #### C D:[id number], CD:[id number] #### [facility] [address] [place] [address] Spray Painting Machine Operator: Eh Gould MD VS 0.8% a cells 0 [facility] Comment on above: Performed By: #### C D:[id number], CD:[id number] #### [facility] [address] [place] [address] [id number] Spray Painting Machine Operator: Eh Gould MD VS 0.8% b cells 3+ Normal [facility] Comment on above: Performed By: #### C D:[id number], CD:[id number] #### [facility] [address] [place] [address] [id number] Spray Painting Machine Operator: Eh Gould MD VS Anti-A Unit 4+ Normal [facility] Comment on above: Performed By: #### C D:[id number], CD:[id number] #### [facility] [address] [place] [address] [id number] Spray Painting Machine Operator: Eh Gould MD VS Anti-B Unit 0 [facility] Comment on above: Performed By: #### C D:[id number], CD:[id number] #### [facility] [address] [place] [address] Spray Painting Machine Operator: Eh Gould MD VS Anti-D Unit 4+ [facility] Comment on above: Performed By: #### C D:[id number], CD:[id number] #### [facility] [address] [place] [address] Spray Painting Machine Operator: Eh Gould MD ABSCon 10-12-2023 ABSC Final Interp Negative [facility] Comment on above: Performed By: #### C D:[id number], CD:[id number] ####[facility] [address] [place] [address] Medical Director: Eh Gould MD Pt Hx check done? Yes [facility] Comment on above: Performed By: #### C D:[id number], CD:[id number] ####[facility] [address] [place] [address] Medical Director: Eh Gould MD VS SCI Gel 0 [facility] Comment on above: Performed By: #### C D:[id number], CD:[id number] ####[facility] [address] [place] [address] Medical Director: Eh Gould MD VS SCII Gel 0 [facility] Comment on above: Performed By: #### C D:[id number], CD:[id number] ####[facility] [address] [place] [address] Medical Director: Eh Gould MD APTTon 10-12-2023 aPTT Coag (Bld) [Time] 29.5 s Normal 27.0-38.0 [facility] Comment on above: Result Comment: APTT Interpretation: This test has not been validated to monitor heparin therapy. APTT test is used as an initial test for suspected bleeding disorder. Anti-Xa UFH test is used to monitor heparin therapy. Performed By: #### 9 140455, 967953, 2049662, 730797, 033947, 434407 ####[facility] [address] [place] [address] Medical Director: Eh Gould MD AUTO DIFFon 10-12-2023 Baso Count 0.02 x1000 Normal 0.00-0.20 [facility] Comment on above: Performed By: #### 9 263485, 794956, 3031638, 243530, 602026, 672649 ####[facility] X[address] [place], [place] [address]) [phone] Director: Eh Gould MD Basos % 0.8 % Normal [facility] Comment on above: Performed By: #### 9 367661, 797269, 3338292, 666222, 456827, 975780 ####[facility] Xyqfcofv20041 [place] [address] Medical Director: Eh Gould MD Eos Count 0.21 x1000 Normal 0.00-0.50 [facility] Comment on above: Performed By: #### 9 244890, 052528, 6052605, 918460, 121422, 624170 ####[facility] Ovb[address]ws18660 [place] [address] Medical Director: Eh Gould MD Eosinophils/100 WBC (Bld) 7.5 % Normal [facility] Comment on above: Performed By: #### 9 723730, 497737, 7623731, 591252, 154143, 341120 ####[facility] K[address]xdfsvg39304 [place] [address] Medical Director: Eh Gould MD Lymph Count 1.03 x1000 Low 1.20-4.80 [facility] Comment on above: Performed By: #### 9 566642, 197078, 1079076, 664367, 040028, 513435 ####[facility] [address] [place] [address] Medical Director: Eh Gould MD Lymphocytes/100 WBC (Bld) 36.5 % Normal [facility] Comment on above: Performed By: #### 9 862717, 210891, 9327409, 986810, 937137, 620167 ####[facility] [address] [place] [address] Medical Director: Eh Gould MD Daniels Count 0.08 x1000 Low 0.10-1.00 [facility] Comment on above: Performed By: #### 9 140140, 982434, 1085882, 015190, 929532, 927642 ####[facility] Ay[address]uppr[address] [place] [address] Medical Director: Eh Gould MD Monocytes/100 WBC (Bld) 2.8 % Normal [facility] Comment on above: Performed By: #### 9 280644, 534514, 6227290, 661283, 604260, 474546 ####[facility] Sbf[address]ogt25612 [place] [address] Medical Director: Eh Gould MD Neutrophil Count (ANC) 1.48 x1000 Normal 1.40-8.80 [facility] Comment on above: Performed By: #### 9 242934, 095642, 0379490, 824353, 996335, 538541 ####[facility] [address]ymrs[address]ha[address] [place] [address] Medical Director: Eh Gould MD Neutrophils/100 WBC (Bld) 52.5 % Normal [facility] Comment on above: Performed By: #### 9 714075, 964148, 3724130, 527898, 909136, 449650 ####[facility] Lbypbmsc30865 [place], [place] [address]) [phone] Director: Eh Gould MD Red Blood Cell Morphology See Notes Abnormal [facility] Comment on above: Result Comment: Macr ocytosis 2+ Rouleaux 1+ Performed By: #### 9 641773, 425258, 2172196, 499950, 508825, 180337 ####[facility] Lk[address]dqqm40052 [place], [place] [address]) [phone] Director: Eh Gould MD Scan Differential Diff Scd Normal [facility] [place] [facility] Comment on above: Result Comment: Slid e reviewed by technologist. Performed By: #### 9 682078, 187524, 1289028, 800477, 016730, 440290 ####[facility] Emmoofpt56630 [place], [place] [address]) [phone] Director: Eh Gould MD BASICMETAon 10-12-2023 Calcium [Mass/Vol] 10.1 mg/dL Normal 8.7-10.4 [facility] Comment on above: Performed By: #### 9 892237, 094354, 9342336, 953385, 338989, 013265 ####[facility] Kzbzkhqt46808 [place], [place] [address]) [phone] Director: Eh Gould MD Chloride [Moles/Vol] 103 mmol/L Normal 98-107 [facility] Comment on above: Performed By: #### 9 978833, 920536, 8817394, 844365, 542656, 114220 ####[facility] Kejenedj24235 [place], [place] [address]) [phone] Director: Eh Gould MD CO2 [Moles/Vol] 27.0 mmol/L Normal 20.0-31.0 [facility] Comment on above: Performed By: #### 9 937525, 178340, 8563559, 980870, 698772, 441671 ####[facility] Chvvtica20308 [place] [address] Medical Director: Eh Gould MD Creatinine [Mass/Vol] 1.2 mg/dL High 0.6-1.1 [facility] Comment on above: Performed By: #### 9 319992, 437105, 2316769, 970963, 231973, 437725 ####[facility] Zxdvzlpf99904 [place] [address] Medical Director: Eh Gould MD GFR AA >60 [facility] Comment on above: Result Comment: Afri can [facility] GFR Calc Medical judgement is necessary to [...] for drug dosing. Performed By: #### 9 366549, 181432, 1723861, 138378, 878234, 108417 ####[facility] Ubmjjnyr07315 [place] [address] Medical Director: Eh Gould MD Glomerular Filtration Rate 59 mL/min/1.73m? Normal [facility] Comment on above: Result Comment: Non- [...] for drug dosing. Performed By: #### 9 955455, 180125, 8880380, 730127, 768660, 629615 ####[facility] Agfcqqdf19596 [place] [address] Medical Director: Eh Gould MD Glucose [Mass/Vol] 111 mg/dL High 74-106 [facility] Comment on above: Performed By: #### 9 564490, 483728, 4004359, 706375, 316922, 504558 ####[facility] Pnaczoxl32436 [place] [address] Medical Director: Eh Gould MD Osmolality [Osmolality] 281 mosm/kg Normal 275-295 [facility] Comment on above: Performed By: #### 9 480729, 405553, 7968731, 786727, 166522, 855266 ####[facility] Bqhulvxn75439 [place] [address] Medical Director: Eh Gould MD Potassium [Moles/Vol] 4.0 mmol/L Normal 3.5-5.1 [facility] Comment on above: Performed By: #### 9 542671, 023154, 6998361, 659837, 047044, 949206 ####[facility] Feautljs[address]48 [place] [address] Medical Director: Eh Gould MD Sodium [Moles/Vol] 140 mmol/L Normal 135-145 [facility] Comment on above: Performed By: #### 9 751339, 731263, 2307906, 347524, 992644, 309219 ####[facility] Sugcsscm72060 [place] [address] Medical Director: Eh Gould MD Urea nitrogen [Mass/Vol] 16 mg/dL Normal 9-23 [facility] Comment on above: Result Comment: - Ve nipuncture should occur prior to N-Acetyl Cysteine (NAC) or Metamizole (Sulpyrine) administration due to the potential for falsely depressed results. - Blood samples from some patients with monoclonal gammopathies may produce falsely elevated results Performed By: #### 9 457433, 074349, 2792084, 115800, 717262, 624512 ####[facility] Wtqsxgiy22173 [place] [address] Medical Director: Eh Gould MD Urea nitrogen/Creatinine [Mass ratio] 13.3 mg/mg Normal [facility] Comment on above: Performed By: #### 9 075377, 708728, 2752500, 853486, 358487, 247629 ####[facility] Ugliwcch49051 [place] [address] Medical Director: Eh Gould MD HEMOon 10-12-2023 DIFF? No Normal [facility] Comment on above: Performed By: #### 9 130246, 040352, 6919527, 380062, 197381, 572364 ####[facility] Thcvaphs89274 [place] [address] Medical Director: Eh Gould MD HEM PATH REVIEW See Diff Review Interp Normal [facility] Comment on above: Performed By: #### 9 224167, 115421, 3389925, 026871, 337706, 477079 ####[facility] Grxqyhqs33974 [place] [address] Medical Director: Eh Gould MD Nucleated RBC 0 /100WBC Normal [facility] Comment on above: Performed By: #### 9 973260, 765744, 3901445, 129001, 681153, 477951 ####[facility] Egnyvvxe82150 [place] [address] Medical Director: Eh Gould MD DxH Actions See Notes Abnormal [facility] Comment on above: Result Comment: Scan for RBC Morphology Scan Slide. Perform manual diff if needed. SNV Performed By: #### 9 820340, 055497, 0089145, 146224, 713494, 097365 ####[facility] Qebrerbu94599 [place] [address] Medical Director: Eh Gould MD Erythrocyte distribution width (RBC) [Ratio] 13.5 % Normal 11.5-14.5 [facility] Comment on above: Performed By: #### 9 236391, 357856, 4546555, 087551, 267647, 208658 ####[facility] Llugcdrw83319 [place], [place] [address]) [phone] Director: Eh Gould MD Hematocrit (Bld) [Volume fraction] 27.4 % Low 41.0-52.0 [facility] Comment on above: Performed By: #### 9 735273, 593142, 0915014, 987122, 183106, 182940 ####[facility] Zicncpxz34721 [place] [address] Medical Director: Eh Gould MD Hemoglobin (Bld) [Mass/Vol] 9.4 g/dL Low 13.5-17.5 [facility] Comment on above: Performed By: #### 9 939018, 606034, 3160585, 700531, 598665, 251455 ####[facility] Ajoqweve16861 [place] [address] Medical Director: Eh Gould MD Instr WBC 2.8 Normal [facility] Comment on above: Performed By: #### 9 886173, 844486, 5062637, 095463, 152753, 358315 ####[facility] Fxuipscg59000 [place] [address] Medical Director: Eh Gould MD MCH (RBC) [Entitic mass] 37.4 pg High 27.0-34.0 [facility] Comment on above: Performed By: #### 9 427354, 983601, 8923910, 404203, 496512, 831923 ####[facility] Sfmhilps49311 [place], [place] [address]) [phone] Director: Eh Gould MD MCHC (RBC) [Mass/Vol] 34.2 g/dL Normal 32.0-37.0 [facility] Comment on above: Performed By: #### 9 581837, 938009, 5550052, 846165, 970385, 180253 ####[facility] Petckwge04365 [place], [place] [address]) [phone] Director: Eh Gould MD MCV (RBC) [Entitic vol] 109.4 fL High 80.0-100.0 [facility] Comment on above: Performed By: #### 9 308585, 701361, 1815583, 543375, 748738, 909576 ####[facility] Fslglsbz82983 [place] [address] Medical Director: Eh Gould MD Platelet 165 x10 Normal 150-450 [facility] Comment on above: Performed By: #### 9 679955, 555866, 4627142, 080945, 936731, 909037 ####[facility] Jaffawvv88575 [place], [place] [address]) [phone] Director: Eh Gould MD Platelet mean volume (Bld) [Entitic vol] 6.3 fL Low 7.4-10.4 [facility] Comment on above: Performed By: #### 9 031555, 888103, 5211317, 990384, 359447, 736723 ####[facility] Gijyoqiz91089 [place] [address] Medical Director: Eh Gould MD RBC 2.51 x10 Low 4.70-6.10 [facility] Comment on above: Result Comment: Note : RBC morphology is normal unless otherwise stated. Evaluation performed only if differential is requested. Performed By: #### 9 733951, 605363, 3370894, 991376, 333786, 012352 ####[facility] Oqgaevcd42944 [place], [place] [address] Medical Director: Eh Gould MD WBC 2.8 x10 Low 4.5-11.0 [facility] Comment on above: Performed By: #### 9 888492, 598045, 3346849, 502631, 562381, 899472 ####[facility] Mlzx[address]zjs[address] [place] [address] Medical Director: Eh Gould MD PT INRon 10-12-2023 INR Coag (PPP) [Relative time] 1.2 {INR} Normal [facility] Comment on above: Result Comment: INR Reference Range: Normal reference range for INR on patients not on anticoagulant therapy: 0.9-1.1 General therapeutic range for patients on anticoagulant therapy: 2.0-3.5 Performed By: #### 9 068063, 170555, 8467308, 839669, 275192, 087356 ####[facility] Bnbtreoj40621 [place] [address] Medical Director: Eh Gould MD Protime Patient 13.4 seconds High 9.8-12.8 [facility] Comment on above: Performed By: #### 9 403372, 930460, 3168926, 326715, 021631, 392946 ####[facility] Sqsrnvhh[address]16 [place] [address] Medical Director: Eh Gould MD Preadmission Testing [...] surgeon. Simba TOLEDO, Dante Lanier on Normal [facility] UAon 10-12-2023 U MICRO Indicated Normal [facility] Comment on above: Performed By: #### 1 14323 #### [facility] [address] [place] [address] Spray Painting Machine Operator: Eh Gould MD Appearance, U Clear Normal [facility] Comment on above: Performed By: #### 1 12282 #### [facility] [address] [place] [address] [employer] Pain[employer] Machine Operator: Eh Gould MD Bilirubin, U Negative Normal Negative [facility] Comment on above: Performed By: #### 1 87358 #### [facility] [address] [place] [address] Spr[employer] Painting Machine Operator: Eh Gould MD Blood, U Moderate Abnormal Negative [facility] Comment on above: Performed By: #### 1 57846 #### [facility] [address] [place] [address] Spr[employer] Pain[employer] Machine Operator: Eh Gould MD Color, U Yellow Normal [facility] Comment on above: Performed By: #### 1 56558 #### [facility] [address] [place] [address] Spr[employer] Painting Machine Operator: Eh Gould MD Glucose Qual, U Negative Normal Negative [facility] Comment on above: Performed By: #### 1 33462 #### [facility] [address] [place] [address] Spr[employer] Painting Machine Operator: Eh Gould MD Hyaline Cast <1 Normal [facility] Comment on above: Performed By: #### 1 31898 #### [facility] [address] [place] [address] 14174 Spr[employer] Painting Machine Operator: Eh Gould MD Ketones, U Negative Normal Negative [facility] Comment on above: Performed By: #### 1 62765 #### [facility] [address] [place] [address]67[address] Spr[employer] Painting Machine Operator: Eh Gould MD Leukocyte Esterase, U Negative Normal Negative [facility] Comment on above: Performed By: #### 1 87698 #### [facility] [address] [place] [address] Spr[employer] Painting Machine Operator: Eh Gould MD Mucous, U Occasional Normal [facility] Comment on above: Performed By: #### 1 85830 #### [facility] [address] [place] [address] Spr[employer] Painting Machine Operator: Eh Gould MD Nitrite, U Negative Normal Negative [facility] Comment on above: Performed By: #### 1 15724 #### [facility] [address] [place], [place] [address] Spray Painting Machine Operator: Eh Gould MD pH, U 5.0 Normal 4.5-8.0 [facility] Comment on above: Performed By: #### 1 35042 #### [facility] [address] [place] [address] 269[address] Spray Painting Machine Operator: Eh Gould MD Protein, U Negative Normal Negative [facility] Comment on above: Performed By: #### 1 44672 #### [facility] [address] [place], [place] [address] Spray Painting Machine Operator: Eh Gould MD RBC/HPF, U 5 #/HPF High 0-3 [facility] Comment on above: Performed By: #### 1 16712 #### [facility] [address] [place] [address] Spray Painting Machine Operator: Eh Gould MD Specific [place], U 1.016 Normal 1.001-1. 03 5 [facility] Comment on above: Performed By: #### 1 93072 #### [facility] [address] [place] [address] Spray Painting Machine Operator: Eh Gould MD Urobilinogen Qual, U <2.0 mg/dl Normal <2.0 mg/dl [facility] Comment on above: Result Comment: EU/d l and mg/dl are equivalent units. Performed By: #### 1 54553 #### [facility] [address] [place] [address] Spray Painting Machine Operator: Eh Gould MD WBC/HPF, U 7 #/HPF High 0-5 [facility] Comment on above: Performed By: #### 1 67090 #### [facility] [address] [place], [place] [address] Spray Painting Machine Operator: Eh Gould MD Activated clotting timeon ACT Coag (Bld) 271 s High 89-169 [facility] Comment on above: Result Comment: Targ et ACT range will vary based on the patient population, clinical status, and surgical intervention occurring. Performed By: #### 3 184-9 #### JAVAD Stephenson ([id number]) [facility] ([facility]) [address] [place] [address] CT WATCHMAN FULL CONTRASTon 08-28-2023 CT WATCHMAN FULL CONTRAST Interpreted By: Purnima Lira, STUDY: CT WATCHMAN FULL CONTRAST; 08/28/2023 12:00 pm INDICATION: Signs/Symptoms:pre Watchman procedure SAME DAY CT. COMPARISON: None. ACCESSION NUMBER(S): [id number] ORDERING CLINICIAN: RYAN COBB TECHNIQUE: Using multi [...] Purnima Lira 09/06/2023 9:28 AM Dictation workstation: [id number] [facility] ECG 12-LEADon 08-28-2023 ECG 12-LEAD Ventricular Rate 63 Atrial Rate 63 P-R Interval 196 QRS Duration 86 Q-T Interval 402 QTC Calculation(Bazett) 411 P [place] 67 R [place] -1 T [place] 20 QRS Count 10 Q Onset 223 P Onset 125 P Offset 180 T Offset 424 QTC Fredericia 408 Diagnosis Normal sinus rhythm Inferior infarct Possible Anterior infarct Abnormal ECG Confirmed by Juan R Obrien ([id number]) on 08/30/2023 3:59:[address] [facility] STRUCTURAL HEART PROCEDUREon 08-28-[address] [facility], [employer], [address] [place] [address] Cardiovascular Catheterization Report Patient Name: NEIL Matthews DAVIAN Performing Physician: [id number] Cobb MD Study Date: 08/28/2023 Verifying Physician: Archie Cobb MD MRN/PID: [id number] Physiatrist/Co-scrub: Ordering Physician: [id number] COBB Date of 1945 Fellow: [id number] Adam Benedict /Age: years Gender: M Fellow: [...] guidance, transseptal puncture was with a versacross ([employer]), accessing the left atrium. The transseptal tract was then dilated with a Watchman Double Curve access sheath and the ICE probe was advanced through the dilated tract into the left atrium. Next, a 6 Upper Sorbian angled pigtail was advanced through the delivery [...] in the LAAO registry. Hemo Personnel: + +--------- + Name Duty + +--------- + Ryan Cobb MD, MD 1 + +--------- + Hemodynamic Pressures: +----+ + +---------+----- ------+ + Site Date Time Phase Name Mean mmHg A-Wave mmHg V-Wave mmHg +----+ + +---------+----- ------+ + [place] 08/28/2023 11:57:27 AM Rest 5 12 9 +----+ + +---------+----- ------+ + [place] 08/28/2023 12:12:19 PM Rest 9 16 15 +----+ + +---------+----- ------+ + Complications: No in-lab complications observed. Cardiac Cath Post Procedure Notes: Post Procedure Diagnosis: Left atrial appendage closure. Blood Loss: Estimated blood loss during the procedure was 0 mls. Specimens Removed: Number of specimen(s) removed: none. ___ CONCLUSIONS: 1. Successful LAAC using WATCHMAN 27 mm FLX device. ICD 10 Codes: Paroxysmal atrial fibrillation-I48.0 CPT Codes: Perc left atrial appendage closure (LAAC)-35048 [id number] Ryan Cobb MD Performing Physician Final [facility] TRANSTHORACIC ECHO (TTE) [facility] ITEDon 08-28-2023 TRANSTHORACIC ECHO (TTE) [facility], [address] [place] [address] and TRANSTHORACIC ECHOCARDIOGRAM REPORT Patient Name: NEIL WILCOX Reading Physician: [id number] Jacobo French MD Study Date: 08/28/2023 Ordering Provider: [id number] LUCAS PEARCE MRN/PID: [id number] Fellow: Nurse: Date of 1945 Spice Mixer: Moncho Infante RDCS /Age: years Gender: M Additional Staff: Height: 175.26 cm Admit Date: 08/28/2023 Weight: 79.38 kg Admission Status: Inpatient - Routine BSA: 1.95 m2 [facility] Cath Location: Lab Blood Pressure: 137 /78 mmHg Study Type: TRANSTHORACIC ECHO (TTE) LIMITED Diagnosis/ICD: Unspecified atrial fibrillation-I48.91 Indication: POST LAAO CPT Code: Echo Limited-21475 Patient History: Pertinent History: HTN; HLD; paroxysmal [...] 72.4 g/m2 LV % FS 32.6 % [id number] Jacobo French MD Electronically signed on 08/28/2023 at 5:50:59 PM Final [facility] TRANSTHORACIC ECHO (TTE) [facility], [address] [place] [address] and TRANSTHORACIC ECHOCARDIOGRAM REPORT Patient Name: NEIL WILCOX Reading Physician: [id number] Kandis Chau MD Study Date: 08/28/2023 Ordering Provider: [id number] LUCAS PEARCE MRN/PID: [id number] Fellow: Nurse: Date of /Age: 1 1945 / 77 years Spice Mixer: Moncho Infante RDCS Gender: M Additional Staff: Height: 175.26 cm Admit Date: 08/28/2023 Weight: 79.38 kg Admission Status: Inpatient - Routine BSA: 1.95 m2 Department Location: [facility] Non Invasive Study Type: TRANSTHORACIC ECHO (TTE) LIMITED Diagnosis/ICD: Unspecified atrial fibrillation-I48.91 Indication: Pre-LAAO CPT Code: Echo Limited-51475 Patient History: Pertinent History: HTN; HLD: paroxysmal [...] VALVE/RVSP: Normal Ranges: IVC Diam: 1.50 cm [id number] Kandis Chau MD Electronically signed on 08/28/2023 at 3:17:19 PM Final Normal [facility] US Heart Transthoracicon [facility], [address] [place] [address] and TRANSTHORACIC ECHOCARDIOGRAM REPORT Patient Name: NEIL WILCOX Reading Physician: [id number] Kandis Chau MD Study Date: 08/28/2023 Ordering Provider: [id number] LUCAS PEARCE MRN/PID: [id number] Fellow: Nurse: Date of /Age: 1 1945 / 77 years Spice Mixer: Moncho Infante RDCS Gender: M Additional Staff: Height: 175.26 cm Admit Date: 08/28/2023 Weight: 79.38 kg Admission Status: Inpatient - Routine BSA: 1.95 m2 Department Location: [facility] Non Invasive Study Type: TRANSTHORACIC ECHO (TTE) LIMITED Diagnosis/ICD: Unspecified atrial fibrillation-I48.91 Indication: Pre-LAAO CPT Code: Echo Limited-46864 Patient History: Pertinent History: HTN; HLD: paroxysmal [...] VALVE/RVSP: Normal Ranges: IVC Diam: 1.50 cm [id number] Kandis Chau MD Electronically signed on 08/28/2023 at 3:17:19 PM Final AIYANAO Kandis Chau MD - 08/28/2023 [facility], [address] [place] [address] and TRANSTHORACIC ECHOCARDIOGRAM REPORT Patient Name: NEIL Matthews DAVIAN Reading Physician: [id number] Kandis Chau MD Study Date: 08/28/2023 Ordering Provider: [id number] LUCAS PEARCE MRN/PID: [id number] Fellow: Nurse: Date of /Age: 1 1945 / 77 years Spice Mixer: Moncho Infante [facility] Gender: M Additional Staff: Height: 175.26 cm Admit Date: 08/28/2023 Weight: 79.38 kg Admission Status: Inpatient - Routine BSA: 1.95 m2 Department Location: [facility] Non Invasive Study Type: TRANSTHORACIC ECHO (TTE) LIMITED Diagnosis/ICD: Unspecified atrial fibrillation-I48.91 Indication: Pre-LAAO CPT Code: Echo Limited-53156 Patient History: Pertinent History: HTN; HLD: paroxysmal [...] VALVE/RVSP: Normal Ranges: IVC Diam: 1.50 cm [id number] Kandis Chau MD Electronically signed on 08/28/2023 at 3:17:19 PM Final [facility] Work Phone: US Heart TransthoracicOrdere d By: Kandis Chau on 08-28-2023 [facility] Work Phone: Creatinineon 08-22-2023 Creatinine [Mass/Vol] 1.23 mg/dL Normal 0.50-1.30 [facility] Comment on above: Performed By: #### 2 160-0 #### LINDA GALLAGHER ([id number]) [facility] (EM) [address] [place] [address] Creatinine [Mass/Vol]on 07-26 GFR/1.73 sq M.predicted MDRD (S/P/Bld) [Vol rate/Area] 61 mL/min/1.73m*2 Normal >60 [facility] Comment on above: Result Comment: Calc ulations of estimated GFR are performed using the 2020 CKD-EPI Study Refit equation without the race variable for the IDMS-Traceable creatinine methods. https://jasn.asnjournals.org/content/early//ASN.19367 58711 Performed By: #### 2 160-0 #### LINDA GALLAGHER ([id number]) [facility] ([facility]) [address] [place] [address] CBC W Auto Differential pane l (Bld)on 07-31-2023 Basophils (Bld) [#/Vol] 10*3/uL Normal <0.11 [facility] Comment on above: Order Comment: Speci men Type: BLOOD SPECIMEN Ordering Facility: External Submitter Address: , , Performed By: #### 5 7021-8 #### [facility] CLIA [id number] [address] [place] [address] [place] Basophils/100 WBC (Bld) 0.3 % Normal [facility] Comment on above: Order Comment: Speci men Type: BLOOD SPECIMEN Ordering Facility: External Submitter Address: , , Performed By: #### 5 7021-8 #### [facility] CLIA [id number] [address] [place] [address] [place] CBC W Differential panel, method unspecified (Bld) Done Normal [facility] Comment on above: Order Comment: Speci men Type: BLOOD SPECIMEN Ordering Facility: External Submitter Address: , , Performed By: #### 5 7021-8 #### [facility] CLIA [id number] [address] [place] [address] [place] Differential cell count method Nom (Bld) Auto Normal [facility] Comment on above: Order Comment: Speci men Type: BLOOD SPECIMEN Ordering Facility: External Submitter Address: , , Performed By: #### 5 7021-8 #### [facility] CLIA [id number] [address] [place] [address] [place] Eosinophils (Bld) [#/Vol] 0.22 10*3/uL Normal <0.46 [facility] Comment on above: Order Comment: Speci men Type: BLOOD SPECIMEN Ordering Facility: External Submitter Address: , , Performed By: #### 5 7021-8 #### [facility] CLIA [id number] [address] [place] [address] [place] Eosinophils/100 WBC (Bld) 6.5 % Normal [facility] Comment on above: Order Comment: Speci men Type: BLOOD SPECIMEN Ordering Facility: External Submitter Address: , , Performed By: #### 5 7021-8 #### [facility] CLIA [id number] [address] [place] [address] [place] Erythrocyte distribution width (RBC) [Ratio] 13.0 % Normal 11.5-15.0 [facility] Comment on above: Order Comment: Speci men Type: BLOOD SPECIMEN Ordering Facility: External Submitter Address: , , Performed By: #### 5 7021-8 #### [facility] CLIA [id number] [address] [place] [address] [place] Hematocrit (Bld) [Volume fraction] 31.3 % Low 39.0-51.0 [facility] Comment on above: Order Comment: Speci men Type: BLOOD SPECIMEN Ordering Facility: External Submitter Address: , , Performed By: #### 5 7021-8 #### [facility] CLIA [id number] [address] [place] [address] [place] Hemoglobin (Bld) [Mass/Vol] 10.4 g/dL Low 13.0-17.0 [facility] Comment on above: Order Comment: Speci men Type: BLOOD SPECIMEN Ordering Facility: External Submitter Address: , , Performed By: #### 5 7021-8 #### [facility] CLIA [id number] [address] [place] [address] [place] Immature granulocytes (Bld) [#/Vol] 10*3/uL Normal <0.10 [facility] Comment on above: Order Comment: Speci men Type: BLOOD SPECIMEN Ordering Facility: External Submitter Address: , , Performed By: #### 5 7021-8 #### [facility] CLIA [id number] [address] [place] [address] [place] Immature granulocytes/100 WBC (Bld) 0.0 % Normal [facility] Comment on above: Order Comment: Speci men Type: BLOOD SPECIMEN Ordering Facility: External Submitter Address: , , Performed By: #### 5 7021-8 #### [facility] CLIA [id number] [address] [place] [address] [place] Lymphocytes (Bld) [#/Vol] 1.06 10*3/uL Normal 1.00-4.00 [facility] Comment on above: Order Comment: Speci men Type: BLOOD SPECIMEN Ordering Facility: External Submitter Address: , , Performed By: #### 5 7021-8 #### [facility] CLIA [id number] [address] [place] [address] [place] Lymphocytes/100 WBC (Bld) 31.2 % Normal [facility] Comment on above: Order Comment: Speci men Type: BLOOD SPECIMEN Ordering Facility: External Submitter Address: , , Performed By: #### 5 7021-8 #### [facility] CLIA [id number] [address] [place] [address] [place] MCH (RBC) [Entitic mass] 37.3 pg High 26.0-34.0 [facility] Comment on above: Order Comment: Speci men Type: BLOOD SPECIMEN Ordering Facility: External Submitter Address: , , Performed By: #### 5 7021-8 #### [facility] CLIA [id number] [address] [place] [address] [place] MCHC (RBC) [Mass/Vol] 33.2 g/dL Normal 30.5-36.0 [facility] Comment on above: Order Comment: Speci men Type: BLOOD SPECIMEN Ordering Facility: External Submitter Address: , , Performed By: #### 5 7021-8 #### [facility] CLIA [id number] [address] [place] [address] [place] MCV (RBC) [Entitic vol] 112.2 fL High 80.0-100.0 [facility] Comment on above: Order Comment: Speci men Type: BLOOD SPECIMEN Ordering Facility: External Submitter Address: , , Performed By: #### 5 7021-8 #### [facility] CLIA [id number] [address] [place] [address] [place] Monocytes (Bld) [#/Vol] 0.13 10*3/uL Normal <0.87 [facility] Comment on above: Order Comment: Speci men Type: BLOOD SPECIMEN Ordering Facility: External Submitter Address: , , Performed By: #### 5 7021-8 #### [facility] CLIA [id number] [address] [place] [address] [place] Monocytes/100 WBC (Bld) 3.8 % Normal [facility] Comment on above: Order Comment: Speci men Type: BLOOD SPECIMEN Ordering Facility: External Submitter Address: , , Performed By: #### 5 7021-8 #### [facility] CLIA [id number] [address] [place] [address] [place] Neutrophils (Bld) [#/Vol] 1.98 10*3/uL Normal 1.45-7.50 [facility] Comment on above: Order Comment: Speci men Type: BLOOD SPECIMEN Ordering Facility: External Submitter Address: , , Performed By: #### 5 7021-8 #### [facility] CLIA [id number] [address] [place] [address] [place] Neutrophils/100 WBC (Bld) 58.2 % Normal [facility] Comment on above: Order Comment: Speci men Type: BLOOD SPECIMEN Ordering Facility: External Submitter Address: , , Performed By: #### 5 7021-8 #### [facility] CLIA [id number] [address] [place] [address] [place] Nucleated RBC (Bld) [#/Vol] 10*3/uL Normal <0.01 [facility] Comment on above: Order Comment: Speci men Type: BLOOD SPECIMEN Ordering Facility: External Submitter Address: , , Performed By: #### 5 7021-8 #### [facility] CLIA [id number] [address] [place] [address] [place] Nucleated RBC/100 WBC (Bld) [Ratio] 0.0 /100 WBC Normal [facility] Comment on above: Order Comment: Speci men Type: BLOOD SPECIMEN Ordering Facility: External Submitter Address: , , Performed By: #### 5 7021-8 #### [facility] CLIA [id number] [address] [place] [address] [place] Platelet mean volume (Bld) [Entitic vol] 9.1 fL Normal 9.0-12.7 [facility] Comment on above: Order Comment: Speci men Type: BLOOD SPECIMEN Ordering Facility: External Submitter Address: , , Performed By: #### 5 7021-8 #### [facility] CLIA [id number] [address] [place] [address] [place] Platelets (Bld) [#/Vol] 166 10*3/uL Normal 150-400 [facility] Comment on above: Order Comment: Speci men Type: BLOOD SPECIMEN Ordering Facility: External Submitter Address: , , Performed By: #### 5 7021-8 #### [facility] CLIA [id number] [address] [place] [address] [place] Platelets Estimate (Bld) [#/Vol] Adequate Normal [facility] Comment on above: Order Comment: Speci men Type: BLOOD SPECIMEN Ordering Facility: External Submitter Address: , , Performed By: #### 5 7021-8 #### [facility] CLIA [id number] [address] [place] [address] [place] RBC (Bld) [#/Vol] 2.79 10*6/uL Low 4.20-6.00 [facility] Comment on above: Order Comment: Speci men Type: BLOOD SPECIMEN Ordering Facility: External Submitter Address: , , Performed By: #### 5 7021-8 #### [facility] CLIA [id number] [address] [place] [address] [place] RED CELL MORPH Reviewed: unremarkable Normal [facility] Comment on above: Order Comment: Speci men Type: BLOOD SPECIMEN Ordering Facility: External Submitter Address: , , Performed By: #### 5 7021-8 #### [facility] CLIA [id number] [address] [place] [address] [place] WBC (Bld) [#/Vol] 3.40 10*3/uL Low 3.70-11.00 [facility] Comment on above: Order Comment: Speci men Type: BLOOD SPECIMEN Ordering Facility: External Submitter Address: , , Performed By: #### 5 7021-8 #### [facility] CLIA [id number] [address] [place] [address] [place] Comprehensive metabolic 2000 panelon 07-31-2023 Albumin [Mass/Vol] 3.8 g/dL Low 3.9-4.9 [facility] Comment on above: Order Comment: Speci men Type: BLOOD SPECIMEN Ordering Facility: External Submitter Address: , , Performed By: #### 2 4323-8, 3023-7, 3 #### [facility] CLIA [id number] [address] [place] [address] [place] ALP [Catalytic activity/Vol] 132 U/L High 38-113 [facility] Comment on above: Order Comment: Speci men Type: BLOOD SPECIMEN Ordering Facility: External Submitter Address: , , Performed By: #### 2 4323-8, 3023-7, 3 #### [facility] CLIA [id number] [address] [place] [address] [place] ALT [Catalytic activity/Vol] 9 U/L Low 10-54 [facility] Comment on above: Order Comment: Speci men Type: BLOOD SPECIMEN Ordering Facility: External Submitter Address: , , Performed By: #### 2 4323-8, 3024-03, 3015-11 #### [facility] CLIA [id number] [address] [place] [address] [place] Anion gap [Moles/Vol] 15 mmol/L Normal 9-18 [facility] Comment on above: Order Comment: Speci men Type: BLOOD SPECIMEN Ordering Facility: External Submitter Address: , , Performed By: #### 2 4323-8, 7, 3015-11 #### [facility] CLIA [id number] [address] [place] [address] [place] AST [Catalytic activity/Vol] 16 U/L Normal 14-40 [facility] Comment on above: Order Comment: Speci men Type: BLOOD SPECIMEN Ordering Facility: External Submitter Address: , , Performed By: #### 2 4323-8, 3023-7, 3 #### [facility] CLIA [id number] [address] [place] [id number] [place] Bilirubin [Mass/Vol] 0.4 mg/dL Normal 0.2-1.3 [facility] Comment on above: Order Comment: Speci men Type: BLOOD SPECIMEN Ordering Facility: External Submitter Address: , , Performed By: #### 2 4323-8, 3024-03, 3 #### [facility] CLIA [id number] [address] [place] [id number] [place] Calcium [Mass/Vol] 9.6 mg/dL Normal 8.5-10.2 [facility] Comment on above: Order Comment: Speci men Type: BLOOD SPECIMEN Ordering Facility: External Submitter Address: , , Performed By: #### 2 4323-8, 3024-03, 3015-11 #### [facility] CLIA [id number] [address] [place] [address] [place] Chloride [Moles/Vol] 99 mmol/L Normal 97-105 [facility] Comment on above: Order Comment: Speci men Type: BLOOD SPECIMEN Ordering Facility: External Submitter Address: , , Performed By: #### 2 4323-8, 3024-03, 3015-11 #### [facility] CLIA [id number] [address] [place] [address] [place] CO2 [Moles/Vol] 23 mmol/L Normal 22-30 [facility] Comment on above: Order Comment: Speci men Type: BLOOD SPECIMEN Ordering Facility: External Submitter Address: , , Performed By: #### 2 4323-8, 3024-03, 3015-11 #### [facility] CLIA [id number] [address] [place] [id number] [place] Creatinine [Mass/Vol] 1.23 mg/dL High 0.73-1.22 [facility] Comment on above: Order Comment: Speci men Type: BLOOD SPECIMEN Ordering Facility: External Submitter Address: , , Performed By: #### 2 4323-8, 3024-03, 3 #### [facility] CLIA [id number] [address] [place] [address] [place] Creatinine and Glomerular filtration rate.predicted panel (S/P/Bld) 61 mL/min/1.73m??? Normal >=60 [facility] Comment on above: Order Comment: [...] actual GFR. Performed By: #### 2 4323-8, 3024-7, 3016-3 #### [facility] CLIA [id number] [address] [place] [address] [place] Glucose [Mass/Vol] 139 mg/dL High 74-99 [facility] Comment on above: Order Comment: Gee vang Type: BLOOD SPECIMEN Ordering Facility: External Submitter Address: , , Result Comment: The [place] [employer] (ADA) provides guidance for cutoff [...] Standards of Medical Care in Diabetes 2016, [place] [employer]. Diabetes Care. 2016.39(Suppl 1). Performed By: #### 2 4323-8, 3024-7, 3016-3 #### [facility] CLIA [id number] [address] [place] [id number] [place] Potassium [Moles/Vol] 4.0 mmol/L Normal 3.7-5.1 [facility] Comment on above: Order Comment: Speci men Type: BLOOD SPECIMEN Ordering Facility: External Submitter Address: , , Performed By: #### 2 4323-8, 3024-03, 3 #### [facility] CLIA [id number] [address] [place] [address] [place] Protein [Mass/Vol] 7.7 g/dL Normal 6.3-8.0 [facility] Comment on above: Order Comment: Speci men Type: BLOOD SPECIMEN Ordering Facility: External Submitter Address: , , Performed By: #### 2 4323-8, 3024-03, 3015-11 #### [facility] CLIA [id number] [address] [place] [address] [place] Sodium [Moles/Vol] 137 mmol/L Normal 136-144 [facility] Comment on above: Order Comment: Speci men Type: BLOOD SPECIMEN Ordering Facility: External Submitter Address: , , Performed By: #### 2 4323-8, 3024-03, 3 #### [facility] CLIA [id number] [address] [place] [address] [place] Urea nitrogen [Mass/Vol] 19 mg/dL Normal 9-24 [facility] Comment on above: Order Comment: Speci men Type: BLOOD SPECIMEN Ordering Facility: External Submitter Address: , , Performed By: #### 2 4323-8, 3024-03, 3015-11 #### [facility] CLIA [id number] [address] [place] [id number] [place] T4 Free SerPl-mCncon 07-2 023 Free T4 [Mass/Vol] 1.1 ng/dL Normal 0.9-1.7 [facility] Comment on above: Order Comment: Speci men Type: BLOOD SPECIMEN Ordering Facility: External Submitter Address: , , Performed By: #### 2 4323-8, 7, 3016-3 #### [facility] CLIA [id number] [address] [facility] [address] [facility] TSH SerPl-aCncon 07-31-2023 TSH Qn 4.190 m[IU]/L Normal 0.270-4.20 0 [facility] Comment on above: Order Comment: Speci men Type: BLOOD SPECIMEN Ordering Facility: External Submitter Address: , , Performed By: #### 2 4323-8, 3024-7, 3016-3 #### [facility] CLIA [id number] [address] [facility] Ambulatory Visit Summaryon 1 Ambulatory Visit [...] spironolactone (spironolactone 25 mg Tab) thyroid desiccated (Stanford Thyroid) Procedures Performed Urethral dilatation (11/03/2022), TURP [...] 4 months Where: [facility] [address] [place] [address]- Medications What How Much When Instructions Changed tolterodine (tolterodine 2 mg Cap-ER) 1 Capsules By Mouth Every day Pickup at [facility]/pharmacy #[id number] Unchanged APAP/ butalbital/ caffeine (APAP/ butalbital/ [...] if questions or concerns Unchanged thyroid desiccated (Stanford Thyroid) By Mouth Every day Contact prescribing physician if questions or concerns Pharmacy Information [facility]/pharmacy #[id number]: [address], [place] [id number] [phone] Allergies No Known Allergies Problems Ongoing - Any problem that you are currently receiving treatment for. BPH without urinary obstruction Hesitancy Hypertension Incomplete bladder emptying Intertrigo mild MT (myocardial infarction) Nocturia Protein in urine Proteinuria [...] This condi (more content not included)... Normal [facility] Patient Educationon 07-09-20 Patient Education Urology [...] Follow these instructions at home: ? Take gjvq-djg-ivxefcg and prescription medicines only as told by [...] the medicine (more content not included)... Normal [facility] Urology Office/Clinic Noteon 07-09-2023 Urology Office/Clinic [...] [facility] [address], [place] [address]- Additional Instructions: Patient Education Benign Prostatic Hyperplasia I, Valentine Fuentes , personally scribed for Dr. Ferguson on 07/09/2023 11:38:56. . Documentation recorded by the scribe, Valentine Fuentes, accurately reflects the services(s) I performed and decisions made by me. Problem List/Past Medical History Ongoing BPH without urinary obstruction Hesitancy Hypertension Incomplete bladder emptying Intertrigo mild MT (myocardial infarction) Nocturia Protein in urine Proteinuria Smoker Urethral meatal stenosis Urge incontinence Urinary incontinence without sensory awareness Urinary retention Historical No qualifying data Procedure/Surgical History Urethral dilatation (11/03/2022), TURP - Transurethral resection of prostate (08/31/2022), Cystoscopy (01/24/2022), Colonoscopy, Shoulder replacement. Medications APAP/butalbital/caffeine 325 mg-50 mg-40 mg Tab Stanford Thyroid, Oral, Daily atorvastatin, Oral, Daily Butapap cat 40mg PRN CVS B-12 1,000 MCG TABLET, 0 doxazosin 4 mg Tab Eliquis 5 mg oral tablet FLUoxet (more content not included)... Normal [facility] Comment on above: Result Comment: Elec [...] Orders Anemia Complete Blood Count; Status:Active; Requested for:[id number]; Atrial fibrillation, currently in sinus rhythm, Frequent falls Cardiology - Valve and Structural Heart Program Referral Evaluation and Treatment Evaluate AND Treat Status: Hold For - Scheduling Requested for: [id number] SocHx: Former smoker Tobacco Use Screening; Status:Complete; Done: [id number] Patient Instructions Please bring all medicines, vitamins, [...] education [facility] patient to call back after review of [...] fibrillation, hypercoagulability related to atrial fibrillation, high [id number] score, most recently seen February 2023 and [...] due to atrial fibrillation, on anticoagulation. 10. [id number] at least 5. Has bled score 2 [...] cuff rep (more content not included)... Normal [facility] Tobacco Screening.on 023 Fall risk assessment b) One or more fall s in the last [facility] [employer] DO Work Phone: Tobacco use status CP b) No [facility] [employer] DO Work Phone: Tobacco Screening. Yes [facility] [employer] DO Work Phone: Patient Educationon 04-03-20 23 Patient Education Obstetrics and Gynec ology Kegel Exercises Kegel exercises can help strengthen [...] provider. Document Revised: 01/19/2022 Document Reviewed: 01/19/2022 [employer] Patient Education ? 2022 [employer]. Normal [facility] Urology Office/Clinic Noteon 04-03-2023 Urology Office/Clinic [...] When Contact Information CHARLOTTE BAKER PA-C, URL [address] [place] [address] Additional Instructions: keep appt w/ Patient Education Kegel Exercises Documentation recorded by the diamanteibgideon Fuentes accurately reflects the services(s) I performed and decisions made by me. Authenticated by Charlotte Baker PA-C on 04/03/2023 09:50:52. Valentine Paez, personally scribed for Charlotte Baker PA-C on 04/03/2023 09:31:40. . Problem List/Past Medical History Ongoing BPH without urinary obstruction Hesitancy Hypertension Incomplete bladder emptying Intertrigo mild MT (myocardial infarction) Nocturia Protein in urine Proteinuria Smoker Urethral meatal stenosis Urge incontinence Urinary incontinence without sensory awareness Urinary retention Historical No qualifying data Procedure/Surgical History Urethral dilatation (11/03/2022), TURP - Transurethral resection of prostate (08/31/2022), Cystoscopy (01/24/2022), Colonoscopy, Shoulder replacement. Medications amLODIPine 5 mg Tab Stanford Thyroid, Oral, Daily aspirin 81 mg oral [...] vaccine 07/12/ (more content not included)... Normal [facility] Comment on above: Result Comment: Elec [...] (278.02,V85.21) (E66.3,Z68.25) Former smoker (V15.82) (Z87.891) Quit 1959's Orders Anticoagulated, Atrial fibrillation, currently in sinus rhythm, BPH (benign prostatic hyperplasia), SocHx: Former smoker, High risk medication use, Hypertension, Hypotension (arterial), Medication course changed, Overweight with body mass index (BMI) of 25 to 25.9 in adult, TIA (transient ischemic attack) Complete Blood Count; Status:Active; Requested for:[id number]; Comprehensive Metabolic Panel; Status:Active; Requested for:[id number]; Lipid Panel; Status:Active; Requested for:[id number]; T4 - Free Thyroxine, Serum; Status:Active; Requested for:26Feb2023; TSH - Thyroid Stimulating Hormone, Serum; Status:Active; Requested for:[id number]; Atrial fibrillation, currently in sinus rhythm, Hypertension [...] daily Device check as directed per [facility] protocol Chief Complaint NEIL WILCOX is [...] due to atrial fibrillation, on anticoagulation. 10. [id number] at least 5. Has bled score 2 insurance changed, now able to afford Vitriflex. 1 Recommendations: 1. Decrease metoprolol succinate to [...] losartan in (more content not included)... Normal [facility] Tobacco Screening.on 023 Fall risk assessment b) One or more fall s in the last [facility] [employer] DO Work Phone: Tobacco use status [facility] b) No [facility] [employer] DO Work Phone: Patient Educationon 01-24-20 [...] conditioner or fan, if available. ? Apply dykp-usm-tyklaka and prescription medicines only as told by [...] well after activity or exercise. Use a dining chair seat cushion trimmer on a cool setting to dry between [...] your skin and with medicines. ? Apply jkis-qjy-zkoifpx and prescription medicines only as told by your health care provider. ? Keep all follow-up visits as told by your health care provider. This is important. This information is not intended to replace advice given to you by your health care provider. Make sure you discuss any questions you have with your health care provider. Document Revised: 06/26/2022 Document Reviewed: 06/26/2022 [employer] Patient Education ? 2022 [employer] Normal [facility] Urology Office/Clinic Noteon 01-23-2023 Urology Office/Clinic [...] E&M of Est. Patient Low 20-29 Min 90013 Orders: Urnls Dip Stick Auto w/o Microscopy POC [id number] Follow-up No qualifying data available f/u [facility] 8 wks. keep previously scheduled f/u w PRW this fall. Patient Education Intertrigo Problem List/Past Medical History Ongoing BPH without urinary obstruction Hesitancy Hypertension Incomplete bladder emptying mild MT (myocardial infarction) Nocturia Protein in urine Proteinuria Smoker Urethral meatal stenosis Urge incontinence Urinary incontinence without sensory awareness Urinary retention Historical No qualifying data Procedure/Surgical History Urethral dilatation (11/03/2022), TURP - Transurethral resection of prostate (08/31/2022), Cystoscopy (01/24/2022), Colonoscopy, Shoulder replacement. Medications amLODIPine 5 mg Tab Stanford Thyroid, Oral, Daily aspirin 81 mg oral [...] Dipstick: 1+ (30 mg/dl) (01/23/23 14:11:00) Specific [place] Urine Dipstick: >=1.030 (01/23/23 14:11:00) Urine Appearance Urine Dipstick: Clear (01/23/23 14:11:00) Urine Color Urine Dipstick: Yellow (01/23/23 14:11:00) Urobilinogen Urine Dipstick: Normal 0.2-1 EU/dl (01/23/23 14:11:00) pH Urine Dipstick: 5.5 (01/23/23 14:11:00) Normal [facility] Comment on above: Result Comment: Elec [...] Follow these instructions at home: ? Take zrny-aag-vvunmcy and prescription medicines only as told by [...] 10/06/2016 Document Revised: 04/23/2019 Document Reviewed: 04/23/2019 [employer] Patient Education ? 2019 [employer]. [facility] Urology Office/Clinic Noteon 01-01-2023 Urology [...] [facility] [address], [place] [address]- Additional Instructions: 6 mos with UA Patient Education Urethral Stricture I, Jessica Landrum, personally scribed for Dr. Ferguson on 01/01/2023 13:19:03. . Documentation recorded by the scribe, Jessica Landrum, accurately reflects the services(s) I performed and decisions made by me. Authenticated by Dr. Ferguson on 01/01/2023 13:24:19. Problem List/Past Medical History Ongoing BPH without urinary obstruction Hesitancy Hypertension Incomplete bladder emptying mild MT (myocardial infarction) Nocturia Protein in urine Proteinuria Smoker Urethral meatal stenosis Urge incontinence Urinary incontinence without sensory awareness Urinary retention Historical No qualifying data Procedure/Surgical History TURP - Transurethral resection of prostate (08/31/2022), Cystoscopy (01/24/2022), Colonoscopy, Shoulder replacement. Medications amLODIPine 5 mg Tab Stanford Thyroid, Oral, Daily aspirin 81 mg oral [...] inactivated 10/09/2021 Recorded SARS-CoV-2 (COVID-19) Ad26 vaccine (more content not included)... Normal [facility] Comment on above: Result Comment: Elec [...] Complaint One week f/u medication reconciliation. NEIL SAUCEDOUBB is being seen for a 1 week [...] MG Oral TabletTAKE 1 TABLET AT BEDTIME. Hjwdiswyeh-WTJK-Asvpxuto 50-325-40 MG Oral TabletTAKE 1 TABLET 3 [...] PM Social (more content not included)... Normal [facility] Tobacco Screening.on 023 Fall risk assessment a) No falls within the last year [facility] [employer] DO Work Phone: Tobacco use status [facility] b) No [facility] [employer] DO Work Phone: Office Visit (Cardiology)on [...] at the time of your visit. 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 Uxyocrwdpb-SNNS-Rtulfvjb 50-325-40 MG Oral TabletTAKE 1 TABLET 3 [...] Caffeine us (more content not included)... Normal [facility] Tobacco Screening.on 023 Adult depression screening assessment No [facility] [employer] DO Work Phone: Fall risk assessment a) No falls within the last year [facility] [employer] DO Work Phone: Tobacco use status CP b) No [facility] [employer] DO Work Phone: Office Visit (Cardiology)on 09-11-2022 Follow-up visit Diagnoses/Problems Assessed Hypertension (401.9) (I10) Overweight with body mass index (BMI) of 25 to 25.9 in adult (278.02,V85.21) (E66.3,Z68.25) Former smoker (V15.82) (Z87.891) Quit 1959's Orders Hypertension Start: Doxazosin Mesylate 4 MG Oral Tablet; TAKE 1 TABLET DAILY Overweight with body mass index (BMI) of 25 to 25.9 in adult Healthy Weight Tips; Status:Complete; Done: [id number] Some eating tips that can help you lose weight.; Status:Complete; Done: [id number] SocHx: Former smoker Tobacco Use Screening; Status:Complete; Done: [id number] Chief Complaint NEIL WILCOX is being seen for hypertension. Current Meds Medication NameInstruction amLODIPine Besylate 10 MG Oral TabletTAKE 1 TABLET DAILY. Atorvastatin Calcium 40 MG Oral TabletTAKE 1 TABLET AT BEDTIME. Vyheaazvhr-VQYJ-Ctjnezaa 50-325-40 MG Oral TabletTAKE 1 TABLET 3 [...] as previously mentioned Vitals Vital Signs Recorded: [id number] 01:07PMRecorded: [id number] 01:00PM Systolic Bpbfn229, LUE Diastolic Lying84, LUE Systolic Jlofkcj219, LUE Diastolic Glefymw74, LUE Systolic Wthgqpat658, LUE Diastolic Dlpfrhtf56, LUE Heart Rate62, L Radial Height5 ft 9 in Ptidgv381 lb BMI Dczjwtyeer23.99 kg/m2 BSA Calculated1.96 Physical Exam GENERAL: Well [...] spec) Not detected Normal NOT DETECTED [facility] Comment on above: Result Comment: This test is not yet approved or cleared by the [place] FDA. When there are no FDA-approved or cleared tests available, and other criteria are met, FDA can make tests available under an emergency access mechanism called an Emergency Use Authorization (EUA). The EUA for this test is supported by the Percolator Operator of Health and Human Service's (HHS's) declaration [...] By: #### T SH, LIPID, CMP #### [facility] [address] [place], [place] [address] Dr. Oscar Paulino Office Visit (Cardiology)on 08-28-2022 [...] TABLET DAILY Basic Metabolic Panel; Status:Active; Requested for:[id number]; Overweight with body mass index (BMI) of 25 to 25.9 in adult Start: Spironolactone 25 MG Oral Tablet; TAKE 1 TABLET DAILY Healthy Weight Tips; Status:Complete; Done: [id number] Some eating tips that can help you lose weight.; Status:Complete; Done: [id number] Paroxysmal atrial fibrillation with RVR Start: Eliquis [...] these medications, (more content not included)... Normal [facility] Tobacco Screening.on 022 Fall risk assessment b) One or more fall s in the last year [facility] [employer] DO Work Phone: Tobacco use status CP b) No [facility] [employer] DO Work Phone: LIPID PROFILEon 08-25-2022 CHOL-HDL RATIO NORM SEE BELOW Normal [facility] Comment on above: Result Comment: 3.3 - 4.4 LOW RISK 4.4 - 7.1 AVERAGE RISK 7.1 - 11.0 MODERATE RISK >11.0 HIGH RISK Performed By: #### T SH, LIPID, CMP #### [facility] [address] [place] [address] Dr. Oscar Paulino Cholesterol [Mass/Vol] 121 mg/dL Normal <=200 [facility] Comment on above: Performed By: #### T MANJIT, LIPID, CMP #### [facility] [address] [address] [address] Oscar Paulino Cholesterol in HDL [Mass/Vol] 42 mg/dL Normal 40-60 [facility] Comment on above: Performed By: #### T MANJIT, LIPID, CMP #### [facility] [address] [address] [address] Oscar Paulino Cholesterol in LDL [Mass/Vol] 66.2 mg/dL Normal [facility] Comment on above: Performed By: #### T SH, LIPID, CMP #### [facility] [address] [address] [address] Oscar Paulino Cholesterol.total/Chol esterol in HDL [Mass ratio] 2.9 {ratio} Normal [facility] Comment on above: Performed By: #### T SH, LIPID, CMP #### [facility] [address] [address] [address] Oscar Paulino HDL NORMAL > or = 60 mg/dl - LO W CARDIOVASCULAR RISK <40 mg/dl - HIGH CARDIOVASCULAR RISK Normal [facility] Comment on above: Performed By: #### T SH, LIPID, CMP #### [facility] [address] [place] [address] Dr. Oscar Paulino LDL CALC NORMAL SEE BELOW Normal [facility] Comment on above: Result Comment: <100 mg/dl OPTIMAL 100 - 129 mg/dl NEAR OR ABOVE OPTIMAL 130 - 159 mg/dl BORDERLINE HIGH 160 - 189 mg/dl HIGH >190 mg/dl VERY HIGH Performed By: #### T SH, LIPID, CMP #### [facility] [address] [place] [address] Dr. Oscar Paulino Triglyceride [Mass/Vol] 64 mg/dL Normal <=150 [facility] Comment on above: Performed By: #### T MANJIT, LIPID, CMP #### [facility] [address] [place] [address] Dr. Oscar Paulino VLDL CALC 12.8 mg/dL Normal [facility] Comment on above: Performed By: #### T MANJIT, LIPID, CMP #### [facility] [address] [place] [address] Dr. Oscar Paulino PROF 14(COMP METB)on 022 Albumin [Mass/Vol] 3.6 g/dL Normal 3.4-5.0 [facility] Comment on above: Performed By: #### T MANJIT, LIPID, CMP #### [facility] [address] [place] [address] Dr. Oscar Paulino Albumin/Globulin [Mass ratio] 0.8 {ratio} Normal [facility] Comment on above: Performed By: #### T MANJIT, LIPID, CMP #### [facility] [address] [place] [address] Dr. Oscar Paulino ALP [Catalytic activity/Vol] 92 U/L Normal 46-116 [facility] Comment on above: Performed By: #### T MANJIT, LIPID, CMP #### [facility] [address] [place] [address] Dr. Oscar Paulino ALT [Catalytic activity/Vol] 17 U/L Normal 16-63 [facility] Comment on above: Performed By: #### T MANJIT, LIPID, CMP #### [facility] [address] [place] [address] Dr. Oscar Paulino Anion gap [Moles/Vol] 9.7 mmol/L Normal [facility] Comment on above: Performed By: #### T MANJIT, LIPID, CMP #### [facility] [address] [place] [address] Dr. Oscar Paulino AST [Catalytic activity/Vol] 10 U/L Critically low 15-37 [facility] Comment on above: Performed By: #### T MANJIT, LIPID, CMP #### [facility] [address] [place] [address] Dr. Oscar Paulino Bilirubin [Mass/Vol] 0.3 mg/dL Normal 0.2-1.0 [facility] Comment on above: Performed By: #### T MANJIT LIPID, CMP #### [facility] [address] [place] [address] Dr. Oscar Paulino Calcium [Mass/Vol] 9.4 mg/dL Normal 8.5-10.1 [facility] Comment on above: Performed By: #### T MANJIT LIPID, CMP #### [facility] [address] [place] [address] Dr. Oscar Paulino Chloride [Moles/Vol] 102 mmol/L Normal 98-107 [facility] Comment on above: Performed By: #### T MANJIT LIPID, CMP #### [facility] [address] [place] [address] Dr. Oscar Paulino CO2 [Moles/Vol] 29.1 mmol/L Normal 21.0-32.0 [facility] Comment on above: Performed By: #### T MANJIT, LIPID, CMP #### [facility] [address] [place] [address] Dr. Oscar Paulino Creatinine [Mass/Vol] 1.08 mg/dL Normal 0.70-1.30 [facility] Comment on above: Performed By: #### T MANJIT, LIPID, CMP #### [facility] [address] [place] [address] Dr. Oscar Paulino EGFR-AF [place] CITIZ[place] >60 Normal >=60 [facility] Comment on above: Performed By: #### T MANJIT, LIPID, CMP #### [facility] [address] [address] [address] Oscar Paulino EGFR-NON AF [place] CITIZ[place] >60 Normal >=60 [facility] Comment on above: Performed By: #### T MANJIT, LIPID, CMP #### [facility] [address] [address] [address] Oscar Paulino Globulin (S) [Mass/Vol] 4.3 g/dL Normal [facility] Comment on above: Performed By: #### T MANJIT, LIPID, CMP #### [facility] [address] [place] [address] Dr. Oscar Paulino Glucose [Mass/Vol] 104 mg/dL Normal 74-106 [facility] Comment on above: Performed By: #### T MANJIT LIPID, CMP #### [facility] [address] [place] [address] Dr. Oscar Paulino Potassium [Moles/Vol] 3.8 mmol/L Normal 3.5-5.1 [facility] Comment on above: Performed By: #### T MANJIT LIPID, CMP #### [facility] [address] [place] [address] Dr. Oscar Paulino Protein [Mass/Vol] 7.9 g/dL Normal 6.4-8.2 [facility] Comment on above: Performed By: #### T MANJIT LIPID, CMP #### [facility] [address] [place] [address] Dr. Oscar Paulino Sodium [Moles/Vol] 137 mmol/L Normal 136-145 [facility] Comment on above: Performed By: #### T MANJIT, LIPID, CMP #### [facility] [address] [place] [address] Dr. Oscar Paulino Urea nitrogen [Mass/Vol] 18.0 mg/dL Normal 7.0-18.0 [facility] Comment on above: Performed By: #### T MANJIT, LIPID, CMP #### [facility] [address] [place] [address] Dr. Oscar Paulino Urea nitrogen/Creatinine [Mass ratio] 16.7 mg/mg Normal [facility] Comment on above: Performed By: #### T MANJIT, LIPID, CMP #### [facility] [address] [place] [address] Dr. Oscar Paulino TSHon 08-25-2022 TSH 2.967 uIU/mL Normal 0.358-3.74 0 [facility] Comment on above: Performed By: #### T SH, LIPID, CMP #### [facility] [address] [place] [address] Dr. Oscar Paulino CBC AUTO DIFFon 08-22-2022 BASO # 0.0 103/ul Normal 0.0-0.1 [facility] Comment on above: Performed By: #### T SH, LIPID, CMP #### [facility] [address] [place] [address] Dr. Oscar Paulino Basophils/100 WBC (Bld) 0.3 % Normal 0.2-2.0 [facility] Comment on above: Performed By: #### T SH, LIPID, CMP #### [facility] [address] [place] [address] Dr. Oscar Paulino EO # 0.3 103/ul Normal 0.0-0.7 [facility] Comment on above: Performed By: #### T SH, LIPID, CMP #### [facility] [address] [place] [address] Dr. Oscar Paulino Eosinophils/100 WBC (Bld) 7.3 % Critically high 0.9-7.0 [facility] Comment on above: Performed By: #### T SH, LIPID, CMP #### [facility] [address] [place] [address] Dr. Oscar Paulino Erythrocyte distribution width (RBC) [Ratio] 11.9 % Normal 11.0-15.0 [facility] Comment on above: Performed By: #### T SH, LIPID, CMP #### [facility] [address] [place] [address] Dr. Oscar Paulino Hematocrit (Bld) [Volume fraction] 33.8 % Critically low 42.0-54.0 [facility] Comment on above: Performed By: #### T SH, LIPID, CMP #### [facility] [address] [place] [address] Dr. Oscar Paulino Hemoglobin (Bld) [Mass/Vol] 12.0 g/dL Critically low 14.0-18.0 [facility] Comment on above: Performed By: #### T SH, LIPID, CMP #### [facility] [address] [place] [address] Dr. Oscar Paulino IG # 0.01 10e3/ul Normal 0.00-0.03 [facility] Comment on above: Performed By: #### T SH, LIPID, CMP #### [facility] [address] [place] [address] Dr. Oscar Paulino IG % 0.3 % Normal 0.0-0.5 [facility] Comment on above: Performed By: #### T SH, LIPID, CMP #### [facility] [address] [place] [address] Dr. Oscar Paulino LYMPH # 1.4 103/ul Normal 1.2-3.8 [facility] Comment on above: Performed By: #### T SH, LIPID, CMP #### [facility] [address] [place] [address] Dr. Oscar Paulino Lymphocytes/100 WBC (Bld) 39.2 % Normal 20.5-60.0 [facility] Comment on above: Performed By: #### T MANJIT, LIPID, CMP #### [facility] [address] [place] [address] Dr. Oscar Paulino MANUAL DIFF REQ NO Normal [facility] Comment on above: Performed By: #### T SH, LIPID, CMP #### [facility] [address] [place] [address] Dr. Oscar Paulino MCH (RBC) [Entitic mass] 36.4 pg Critically high 25.9-34.0 [facility] Comment on above: Performed By: #### T SH, LIPID, CMP #### [facility] [address] [place] [address] Dr. Oscar Paulino MCHC (RBC) [Mass/Vol] 35.5 g/dL Critically high 29.9-35.2 [facility] Comment on above: Performed By: #### T SH, LIPID, CMP #### [facility] [address] [address] [address] Oscar Paulino MCV (RBC) [Entitic vol] 102.4 fL Critically high 80.0-94.0 [facility] Comment on above: Performed By: #### T SH, LIPID, CMP #### [facility] [address] [place] [address] Dr. Oscar Paulino MONO # 0.2 103/ul Critically low 0.3-0.8 [facility] Comment on above: Performed By: #### T SH, LIPID, CMP #### [facility] [address] [place] [address] Dr. Oscar Paulino Monocytes/100 WBC (Bld) 6.8 % Normal 1.7-12.0 [facility] Comment on above: Performed By: #### T SH, LIPID, CMP #### [facility] [address] [place] [address] Dr. Oscar Paulino NEUT # 1.6 103/ul Normal 1.4-6.5 [facility] Comment on above: Performed By: #### T SH, LIPID, CMP #### [facility] [address] [place] [address] Dr. Oscar Paulino Neutrophils/100 WBC (Bld) 46.1 % Normal 43.0-75.0 [facility] Comment on above: Performed By: #### T SH, LIPID, CMP #### [facility] [address] [place] [address] Dr. Oscar Paulino Platelet mean volume (Bld) [Entitic vol] 8.5 fL Critically low 9.5-13.5 [facility] Comment on above: Performed By: #### T SH, LIPID, CMP #### [facility] [address] [place] [address] Dr. Oscar Paulino PLT 191 103/ul Normal 150-450 [facility] Comment on above: Performed By: #### T SH, LIPID, CMP #### [facility] [address] [place] [address] Dr. Oscar Paulino RBC 3.30 106/ul Critically low 4.70-6.10 [facility] Comment on above: Performed By: #### T SH, LIPID, CMP #### [facility] [address] [place] [address] [address] Oscar Paulino WBC 3.6 103/ul Critically low 4.0-11.0 [facility] Comment on above: Performed By: #### T SH, LIPID, CMP #### [facility] [address] [address] [address] Oscar Paulino PROF CHEM 8 (BAS METB)on Anion gap [Moles/Vol] 11.0 mmol/L Normal [facility] Comment on above: Performed By: #### B MP #### [facility] [address] [place] [address] Dr. Oscar Paulino Calcium [Mass/Vol] 9.4 mg/dL Normal 8.5-10.1 [facility] Comment on above: Performed By: #### B MP #### [facility] [address] [place] [address] Dr. Oscar Paulino Chloride [Moles/Vol] 103 mmol/L Normal 98-107 [facility] Comment on above: Performed By: #### B MP #### [facility] [address] [place] [address] Dr. Oscar Paulino CO2 [Moles/Vol] 27.7 mmol/L Normal 21.0-32.0 [facility] Comment on above: Performed By: #### B MP #### [facility] [address] [place] [address] Dr. Oscar Paulino Creatinine [Mass/Vol] 1.07 mg/dL Normal 0.70-1.30 [facility] Comment on above: Performed By: #### B MP #### [facility] [address] [place] [address] Dr. Oscar Paulino EGFR-AF [place] CITIZ[place] >60 Normal >=60 [facility] Comment on above: Performed By: #### B MP #### [facility] [address] [place] [address] Dr. Oscar Paulino EGFR-NON AF [place] CITIZ[place] >60 Normal >=60 [facility] Comment on above: Performed By: #### B MP #### [facility] [address] [place] [address] [address] Oscar Paulino Glucose [Mass/Vol] 99 mg/dL Normal 74-106 [facility] Comment on above: Performed By: #### B MP #### [facility] [address] [address] [address] Oscar Paulino Potassium [Moles/Vol] 3.7 mmol/L Normal 3.5-5.1 [facility] Comment on above: Performed By: #### B MP #### [facility] [address] [address] [address] Oscar Paulino Sodium [Moles/Vol] 138 mmol/L Normal 136-145 [facility] Comment on above: Performed By: #### B MP #### [facility] [address] [address] [address] Oscar Paulino Urea nitrogen [Mass/Vol] 20.0 mg/dL Critically high 7.0-18.0 [facility] Comment on above: Performed By: #### B MP #### [facility] [address] [address] [address] Oscar Paulino Urea nitrogen/Creatinine [Mass ratio] 18.7 mg/mg Normal [facility] Comment on above: Performed By: #### B MP #### [facility] [address] [address] [address] Oscar Paulino PROTIMEon 08-22-2022 INR Coag (PPP) [Relative time] 1.06 {INR} Normal [facility] Comment on above: Performed By: #### P T, PTT #### [facility] [address] [address] [address] Oscar Paulino INR GUIDELINES SEE BELOW Normal [facility] Comment on above: Result Comment: ELYSIA RED INR: 2.0 - 3.0 CONDITIONS NOT LISTED BELOW 2.5 - 3.5 FOR PROSTHETIC HEART VALVE REPLACEMENT 2.5 - 3.5 RECURRENT THROMBOSIS Performed By: #### P T, PTT #### [facility] [address] [place] [address] Dr. Oscar Paulino PT Coag (PPP) [Time] 11.4 s Normal 9.0-11.6 [facility] Comment on above: Performed By: #### P T, PTT #### [facility] [address] [place], [place] [address] Dr. Oscar Paulino PTTon 08-22-2022 aPTT Coag (Bld) [Time] 26.6 s Normal 22.3-36.2 [facility] Comment on above: Performed By: #### P T, PTT #### [facility] [address] [place], [place] [address] Dr. Oscar Paulino Covid-19 PCR (CVDTB)on 06-25 SARS-CoV-2 (COVID-19) RNA KEIKO+probe Ql (Unsp spec) Not detected Normal NOT DETECTED [facility] Comment on above: Result Comment: This test is not yet approved or cleared by the [place] FDA. When there are no FDA-approved or cleared tests available, and other criteria are met, FDA can make tests available under an emergency access mechanism called an Emergency Use Authorization (EUA). The EUA for this test is supported by the Percolator Operator of Health and Human Service's (HHS's) declaration [...] SARS-CoV-2. Performed By: #### C VDTBH #### [facility] [address] [place], [place] [address] Dr. Oscar Paulino Covid-19 PCR (CVDTBH)on SARS-CoV-2 (COVID-19) RNA KEIKO+probe Ql (Unsp spec) Not detected Normal NOT DETECTED [facility] Comment on above: Result Comment: This test is not yet approved or cleared by the [place] FDA. When there are no FDA-approved or cleared tests available, and other criteria are met, FDA can make tests available under an emergency access mechanism called an Emergency Use Authorization (EUA). The EUA for this test is supported by the [place] of [place] and Human Service's (HHS's) declaration [...] SARS-CoV-2. Performed By: #### C VDTBH #### [facility] [address] [place] [address] Dr. Oscar Paulino CBC AUTO DIFFon 06-28-2022 BASO # 0.0 103/ul Normal 0.0-0.1 [facility] Comment on above: Performed By: #### T SH, LIPID, CMP #### [facility] [address] [place] [address] Dr. Oscar Paulino Basophils/100 WBC (Bld) 0.4 % Normal 0.2-2.0 [facility] Comment on above: Performed By: #### T SH, LIPID, CMP #### [facility] [address] [place] [address] Dr. Oscar Paulino EO # 0.2 103/ul Normal 0.0-0.7 [facility] Comment on above: Performed By: #### T SH, LIPID, CMP #### [facility] [address] [place] [address] Dr. Oscar Paulino Eosinophils/100 WBC (Bld) 7.5 % Critically high 0.9-7.0 [facility] Comment on above: Performed By: #### T SH, LIPID, CMP #### [facility] [address] [place] [address] Dr. Oscar Paulino Erythrocyte distribution width (RBC) [Ratio] 12.3 % Normal 11.0-15.0 [facility] Comment on above: Performed By: #### T SH, LIPID, CMP #### [facility] [address] [place] [address] Dr. Oscar Paulino Hematocrit (Bld) [Volume fraction] 34.0 % Critically low 42.0-54.0 [facility] Comment on above: Performed By: #### T SH, LIPID, CMP #### [facility] [address] [place] [address] Dr. Oscar Paulino Hemoglobin (Bld) [Mass/Vol] 11.6 g/dL Critically low 14.0-18.0 [facility] Comment on above: Performed By: #### T SH, LIPID, CMP #### [facility] [address] [place] [address] Dr. Oscar Paulino IG # 0.00 10e3/ul Normal 0.00-0.03 [facility] Comment on above: Performed By: #### T SH, LIPID, CMP #### [facility] [address] [place] [address] Dr. Oscar Paulino IG % 0.0 % Normal 0.0-0.5 [facility] Comment on above: Performed By: #### T SH, LIPID, CMP #### [facility] [address] [place] [address] Dr. Oscar Paulino LYMPH # 1.0 103/ul Critically low 1.2-3.8 [facility] Comment on above: Performed By: #### T SH, LIPID, CMP #### [facility] [address] [place] [address] Dr. Oscar Paulino Lymphocytes/100 WBC (Bld) 40.1 % Normal 20.5-60.0 [facility] Comment on above: Performed By: #### T SH, LIPID, CMP #### [facility] [address] [place] [address] Dr. Oscar Paulino MANUAL DIFF REQ NO Normal [facility] Comment on above: Performed By: #### T SH, LIPID, CMP #### [facility] [address] [place] [address] Dr. Oscar Paulino MCH (RBC) [Entitic mass] 35.7 pg Critically high 25.9-34.0 [facility] [facility] Comment on above: Performed By: #### T SH, LIPID, CMP #### [facility] [address] [place] [address] Dr. Oscar Paulino MCHC (RBC) [Mass/Vol] 34.1 g/dL Normal 29.9-35.2 [facility] Comment on above: Performed By: #### T SH, LIPID, CMP #### [facility] [address] [place] [address] Dr. Oscar Paulino MCV (RBC) [Entitic vol] 104.6 fL Critically high 80.0-94.0 [facility] Comment on above: Performed By: #### T SH, LIPID, CMP #### [facility] [address] [place] [address] Dr. Oscar Paulino MONO # 0.2 103/ul Critically low 0.3-0.8 [facility] Comment on above: Performed By: #### T SH, LIPID, CMP #### [facility] [address] [place] [address] Dr. Oscar Paulino Monocytes/100 WBC (Bld) 6.7 % Normal 1.7-12.0 [facility] Comment on above: Performed By: #### T SH, LIPID, CMP #### [facility] [address] [place] [address] Dr. Oscar Paulino NEUT # 1.1 103/ul Critically low 1.4-6.5 [facility] Comment on above: Performed By: #### T SH, LIPID, CMP #### [facility] [address] [place] [address] Dr. Oscar Paulino Neutrophils/100 WBC (Bld) 45.3 % Normal 43.0-75.0 [facility] Comment on above: Performed By: #### T SH, LIPID, CMP #### [facility] [address] [place] [address] Dr. Oscar Paulino Platelet mean volume (Bld) [Entitic vol] 8.4 fL Critically low 9.5-13.5 [facility] Comment on above: Performed By: #### T MANJIT, LIPID, CMP #### [facility] [address] [place] [address] Dr. Oscar Paulino PLT 164 103/ul Normal 150-450 [facility] Comment on above: Performed By: #### T MANJIT, LIPID, CMP #### [facility] [address] [place] [address] Dr. Oscar Paulino RBC 3.25 106/ul Critically low 4.70-6.10 [facility] Comment on above: Performed By: #### T MANJIT LIPID, CMP #### [facility] [address] [place] [address] Dr. Oscar Paulino WBC 2.5 103/ul Critically low 4.0-11.0 [facility] Comment on above: Performed By: #### T MANJIT LIPID, CMP #### [facility] [address] [place] [address] Dr. Oscar Pualino PROF CHEM 8 (BAS METB)on Anion gap [Moles/Vol] 9.9 mmol/L Normal [facility] Comment on above: Performed By: #### B MP #### [facility] [address] [place] [address] Dr. Oscar Paulino Calcium [Mass/Vol] 9.4 mg/dL Normal 8.5-10.1 [facility] Comment on above: Performed By: #### B MP #### [facility] [address] [place] [address] Dr. Oscar Paulino Chloride [Moles/Vol] 105 mmol/L Normal 98-107 [facility] Comment on above: Performed By: #### B MP #### [facility] [address] [place] [address] Dr. Oscar Paulino CO2 [Moles/Vol] 27.3 mmol/L Normal 21.0-32.0 [facility] Comment on above: Performed By: #### B MP #### [facility] [address] [place] [address] Dr. Oscar Paulino Creatinine [Mass/Vol] 1.05 mg/dL Normal 0.70-1.30 [facility] Comment on above: Performed By: #### B MP #### [facility] [address] [address] [address] Oscar Paulino EGFR-AF [place] CITIZEN >60 Normal >=60 [facility] Comment on above: Performed By: #### B MP #### [facility] [address] [address] [address] Oscar Paulino EGFR-NON AF [place] CITIZEN >60 Normal >=60 [facility] Comment on above: Performed By: #### B MP #### [facility] [address] [address] [address] Oscar Paulino Glucose [Mass/Vol] 105 mg/dL Normal 74-106 [facility] Comment on above: Performed By: #### B MP #### [facility] [address] [place] [address] Dr. Oscar Paulino Potassium [Moles/Vol] 4.2 mmol/L Normal 3.5-5.1 [facility] Comment on above: Performed By: #### B MP #### [facility] [address] [place] [address] Dr. Oscar Paulino Sodium [Moles/Vol] 138 mmol/L Normal 136-145 [facility] Comment on above: Performed By: #### B MP #### [facility] [address] [place] [address] Dr. Oscar Paulino Urea nitrogen [Mass/Vol] 15.0 mg/dL Normal 7.0-18.0 [facility] Comment on above: Performed By: #### B MP #### [facility] [address] [place] [address] Dr. Oscar Paulino Urea nitrogen/Creatinine [Mass ratio] 14.3 mg/mg Normal [facility] Comment on above: Performed By: #### B MP #### [facility] [address] [place] [address] Dr. Oscar Paulino PROTIMEon 06-28-2022 INR Coag (PPP) [Relative time] 1.03 {INR} Normal [facility] Comment on above: Performed By: #### T SH, LIPID, CMP #### [facility] [address] [address] [address] Oscar Paulino INR GUIDELINES SEE BELOW Normal [facility] Comment on above: Result Comment: ELYSIA RED INR: 2.0 - 3.0 CONDITIONS NOT LISTED BELOW 2.5 - 3.5 FOR PROSTHETIC HEART VALVE REPLACEMENT 2.5 - 3.5 RECURRENT THROMBOSIS Performed By: #### T SH, LIPID, CMP #### [facility] [address] [address] [address] Oscar Paulino PT Coag (PPP) [Time] 11.1 s Normal 9.0-11.6 [facility] Comment on above: Performed By: #### T SH, LIPID, CMP #### [facility] [address] [address] [address] Oscar Paulino PTTon 06-28-2022 aPTT Coag (Bld) [Time] 26.2 s Normal 22.3-36.2 [facility] Comment on above: Performed By: #### T SH, LIPID, CMP #### [facility] [address] [address] [address] Oscar Paulino Tobacco Screening.on 022 Adult depression screening assessment Yes [facility] [employer] 250 DO Work Phone: Adult depression screening assessment No [facility] [employer] 250 DO Work Phone: Fall risk assessment a) No falls within the last year [facility] [employer] 250 DO Work Phone: Tobacco use status [facility] b) No [facility] [employer] 250 DO Work Phone: Tobacco Screening. 1-Several days [facility] [employer] 250 DO Work Phone: Tobacco Screening. 0-Not at all [facility] [email or web address] 250 DO Work Phone: Tobacco Screening. 2-More than half the days [facility] 250 DO Work Phone: Tobacco Screening. Somewhat Difficult -[facility] 250 DO Work Phone: CT STROKE HEAD WOon 04-08-20 CT STROKE HEAD WO EXAM: CT STROKE [...] by: EBONI PETE Date: 2022-04-08 00:27 Normal [facility] CARDIAC STRESS/REST INJE CTIONon 10-03-2021 [facility] CARDIAC STRESS/REST INJECTION Patient Name: NEIL WILCOX STUDY: MYOCARDIAL PERFUSION STRESS TEST WITH LEXISCAN Performing facility: [facility], [address] [place] [address], [address], [address] Provider: Loulou Arreguin RN, S[employer]IOR [employer]ET [employer]EARCH ANALYST PCP: Dr. Paul Cooney Supervising provider: Erick Wise DO, [facility] INDICATION: HTN Fatigue HISTORY: Gender: M; Age: 75 y/o ; Height: 0 cm; Weight: 0 kg. High Cholesterol; HTN; Fatigue; TIA Vertigo Denies smoking. COMPARISON: No comparison. ACCESSION NUMBER(S): [id number]; [id number]; [id number] ORDERING CLINICIAN: LOULOU ARREGUIN TECHNIQUE: ONE DAY protocol. Stress injection: Date:10-03-21, 33.0 mCi of Myoview IV 20 seconds after rapid injection of Lexiscan. Rest injection: Date: 10-03-21, 11.0 mCi of Myoview IV at rest. The patient had a rapid injection of 0.4 mg of Lexiscan IV over 10 seconds. Imaging was performed by gated tomographic technique. Reason for Lexiscan: dizziness/unsteady/fall risk STRESS TEST DATA: Resting heart rate [...] Electronically signed by: MATTI MIDDLETON MD Normal [facility] Falls Risk Screeningon 08-31 Fall risk assessment a) No falls within the last year [facility] [employer] 250 DO Work Phone: Tobacco use status CP b) No [facility] [employer] 250 DO Work Phone: Tobacco Screening.on Fall risk assessment a) No falls within the last year [facility] [employer] 250 DO Work Phone: Tobacco use status [facility] b) No [facility] [employer] 250 DO Work Phone: BASIC METABOLIC PANELon 03-24 Calcium [Mass/Vol] 8.9 mg/dL Normal 8.5-10.4 [facility] Comment on above: Result Comment: RESU LT CHECKED Anion gap [Moles/Vol] 9 mmol/L Normal 0-19 [facility] Chloride [Moles/Vol] 104 mmol/L Normal 97-107 [facility] CO2 [Moles/Vol] 24 mmol/L Normal 24-31 [facility] Creatinine [Mass/Vol] 0.9 mg/dL Normal 0.4-1.6 [facility] ESTIMATED GFR 88 mL/min/1.73 m2 Normal [facility] Comment on above: Result Comment: GFR ml/min/1.73m2 Stage ----- 90 1 60-89 2 30-59 3 15-29 4 <15 5 For -Americans, multiply EGFR result by 1.210 Calculation not validated for patients under 18 years of age. Performed at [facility] [address] [facility] [address] Glucose [Mass/Vol] 134 mg/dL High 65-99 [facility] Potassium [Moles/Vol] 3.9 mmol/L Normal 3.4-5.1 [facility] Sodium [Moles/Vol] 137 mmol/L Normal 133-145 [facility] Urea nitrogen [Mass/Vol] 13 mg/dL Normal 8-25 [facility] Urea nitrogen/Creatinine [Mass ratio] 14.4 mg/mg Normal 8-21 [facility] CBC with Diffon 04-06-2021 AB IMMATURE NEUT 0.00 K/UL Normal 0.0-0.1 [facility] ABS BASO 0.00 K/UL Normal 0.00-0.22 [facility] ABS EOS 0.02 K/UL Normal 0-0.45 [facility] ABS NEUTROPHILS 3.73 K/UL Normal 1.8-7.7 [facility] ABS.NEUT.CALCULATED 3.73 K/UL Normal [facility] Comment on above: Result Comment: Perf ormed at [facility] [address] [facility] [address] Basophils/100 WBC (Bld) 0.00 % Normal 0-1 [facility] DIFF TYPE AUTO DIFF Normal [facility] Eosinophils/100 WBC (Bld) 0.40 % Normal 0-3 [facility] Erythrocyte distribution width (RBC) [Ratio] 11.6 % Low 11.7-15.0 [facility] Hematocrit (Bld) [Volume fraction] 29.6 % Low 41-50 [facility] Hemoglobin (Bld) [Mass/Vol] 10.0 g/dL Low 13.5-16.5 [facility] Lymphocytes (Bld) [#/Vol] 0.97 10*3/uL Low 1.2-3.2 [facility] Lymphocytes/100 WBC (Bld) 19.10 % Low 20-40 [facility] MCH (RBC) [Entitic mass] 35.5 pg High 26-34 [facility] MCHC 33.8 % Normal 31-37 [facility] MCV (RBC) [Entitic vol] 105.0 fL High 80-100 [facility] MEAN PLT VOL 8.4 CU Normal 7.0-12.6 [facility] Monocytes (Bld) [#/Vol] 0.35 10*3/uL Normal 0-0.8 [facility] Monocytes/100 WBC (Bld) 6.90 % Normal 0-8 [facility] Neutrophils/100 WBC (Bld) 0.00 % Normal 0.0-1.0 [facility] Neutrophils/100 WBC (Bld) 73.60 % High 50-70 [facility] Platelets (Bld) [#/Vol] 115 10*3/uL Low 150-450 [facility] RBC (Bld) [#/Vol] 2.82 10*6/uL Low 4.5-5.5 [facility] RDW-SD 44.8 FL Normal 37.0-54.0 [facility] WBC (Bld) [#/Vol] 5.1 10*3/uL Normal 4.5-11.0 [facility] PROTHROMBIN TIMEon 1 INR Coag (PPP) [Relative time] 1.0 {INR} Normal 0.86-1.16 [facility] Comment on above: Result Comment: INR Theraputic Range: 2.0-3.5 Performed at [address] [address] PT Coag (PPP) [Time] 11.3 s Normal 9.3-12.7 [facility] ANTICOAGULANT INFORMATION NOT REPO RTED TO LABORATORY Normal [facility] PTTon 04-06-2021 aPTT Coag (Bld) [Time] 21.9 s Low 22.0-32.5 [facility] Comment on above: Result Comment: Perf ormed at [address] [address] CBC with Diffon 04-01-2021 AB IMMATURE NEUT 0.00 K/UL Normal 0.0-0.1 [facility] ABS BASO 0.02 K/UL Normal 0.00-0.22 [facility] ABS EOS 0.19 K/UL Normal 0-0.45 [facility] ABS NEUTROPHILS 1.56 K/UL Low 1.8-7.7 [facility] ABS.NEUT.CALCULATED 1.56 K/UL Normal [facility] Comment on above: Result Comment: Perf ormed at [address] [address] Basophils/100 WBC (Bld) 0.60 % Normal 0-1 [facility] DIFF TYPE AUTO DIFF Normal [facility] Eosinophils/100 WBC (Bld) 5.30 % High 0-3 [facility] Erythrocyte distribution width (RBC) [Ratio] 11.6 % Low 11.7-15.0 [facility] Hematocrit (Bld) [Volume fraction] 40.9 % Low 41-50 [facility] Hemoglobin (Bld) [Mass/Vol] 13.4 g/dL Low 13.5-16.5 [facility] Lymphocytes (Bld) [#/Vol] 1.44 10*3/uL Normal 1.2-3.2 [facility] Lymphocytes/100 WBC (Bld) 40.30 % High 20-40 [facility] MCH (RBC) [Entitic mass] 35.2 pg High 26-34 [facility] MCHC 32.8 % Normal 31-37 [facility] MCV (RBC) [Entitic vol] 107.3 fL High 80-100 [facility] MEAN PLT VOL 8.5 CU Normal 7.0-12.6 [facility] Monocytes (Bld) [#/Vol] 0.36 10*3/uL Normal 0-0.8 [facility] Monocytes/100 WBC (Bld) 10.10 % High 0-8 [facility] Neutrophils/100 WBC (Bld) 0.00 % Normal 0.0-1.0 [facility] Neutrophils/100 WBC (Bld) 43.70 % Low 50-70 [facility] Platelets (Bld) [#/Vol] 149 10*3/uL Low 150-450 [facility] RBC (Bld) [#/Vol] 3.81 10*6/uL Low 4.5-5.5 [facility] RDW-SD 46.3 FL Normal 37.0-54.0 [facility] WBC (Bld) [#/Vol] 3.6 10*3/uL Low 4.5-11.0 [facility] COMPREHENSIVE METABOLIC PANE Melvin 04-01-2021 Albumin [Mass/Vol] 4.1 g/dL Normal 3.5-5.0 [facility] Albumin/Globulin [Mass ratio] 1.2 {ratio} Low 1.5-3.0 [facility] ALP [Catalytic activity/Vol] 77 U/L Normal 35-125 [facility] ALT [Catalytic activity/Vol] 16 U/L Normal 5-40 [facility] Anion gap [Moles/Vol] 10 mmol/L Normal 0-19 [facility] AST [Catalytic activity/Vol] 18 U/L Normal 5-40 [facility] Bilirubin [Mass/Vol] 0.3 mg/dL Normal 0.1-1.2 [facility] Calcium [Mass/Vol] 10.0 mg/dL Normal 8.5-10.4 [facility] Chloride [Moles/Vol] 104 mmol/L Normal 97-107 [facility] CO2 [Moles/Vol] 27 mmol/L Normal 24-31 [facility] Creatinine [Mass/Vol] 0.9 mg/dL Normal 0.4-1.6 [facility] ESTIMATED GFR 88 mL/min/1.73 m2 Normal [facility] Comment on above: Result Comment: GFR ml/min/1.73m2 Stage ----- 90 1 60-89 2 30-59 3 15-29 4 <15 5 For -Americans, multiply EGFR result by 1.210 Calculation not validated for patients under 18 years of age. Performed at [address] [address] Globulin (S) [Mass/Vol] 3.3 g/dL Normal 1.9-3.7 [facility] Glucose [Mass/Vol] 95 mg/dL Normal 65-99 [facility] Potassium [Moles/Vol] 4.3 mmol/L Normal 3.4-5.1 [facility] Protein [Mass/Vol] 7.4 g/dL Normal 5.9-7.9 [facility] Sodium [Moles/Vol] 141 mmol/L Normal 133-145 [facility] Urea nitrogen [Mass/Vol] 16 mg/dL Normal 8-25 [facility] Urea nitrogen/Creatinine [Mass ratio] 17.8 mg/mg Normal 8-21 [facility] SARS-CoV-2,INFLUENZA A/B NUC LEIC ACID TESTon 04-01-2021 EUA DISCLAIMER Normal [facility] Comment on above: Result Comment: This [...] is terminated or revoked sooner. Performed at [address] [address] FLU A by PCR Negative [facility] FLU B by PCR Negative [facility] SARS-CoV-2 (COVID-19) RNA KEIKO+probe Ql (Unsp spec) Negative Normal NEG [facility] TYPE AND SCREENon 04-01-2021 TYPE AND SCREEN BLOOD COMPONENT TYPE - RED CELL GROUP Performed at [address] [address] UNITS ORDERED - 0 Performed at [address] [address] SPECIMEN EXPIRATION - 04/08/2021 Performed at [address] [address] ABO/RH(D) - A POSITIVE Performed at [address] [address] ANTIBODY SCREEN - NEGATIVE Performed at [address] [address] ARM BAND NUMBER - [id number] Performed at [address] [address] SURGERY DATE - [id number] Performed at [address] [address] TEST ORDERED - TYPE AND SCREEN Performed at [address] [id number] PT TRANSFUSION HISTORY - BLOOD BANK RECORD SEARCH COMPLETED NO PREVIOUS RECORD NO PREVIOUS TRANSFUSIONS IN LIFETIME Performed at [address] [address] Normal [facility] Comment on above: Performed By: #### T [facility] #### Main Laboratory [address] [address] UA-REFLEX TO CULTUREon 04-01 RBC NONE SEEN Normal 0-3 [facility] Urinalysis dipstick W Reflex Microscopic panel (U) MANUAL MICROSCOPIC URINES Normal [facility] WBC NONE SEEN Normal 0-3 [facility] OTHER Normal [facility] Comment on above: Result Comment: MUCO US Performed at [address] [address] Bacteria identified Cx Nom (U) CULTURE NOT INDICATED Normal [facility] Comment on above: Result Comment: CULT URE NOT INDICATED Performed at [address] [address] BILI Negative Normal NEG [facility] Clarity (U) CLEAR Normal [facility] Color (U) YELLOW Normal [facility] GLUC Negative Normal NEG [facility] Hemoglobin Ql (U) Negative Normal NEG [facility] KET Negative Normal NEG [facility] LEUK Negative Normal NEG [facility] NIT Negative Normal NEG [facility] pH (U) 6.5 [pH] Normal 4.6-8.0 [facility] PROT TRACE Abnormal NEG [facility] SP GRAV,URINE 1.025 Normal 1.005-1.03 0 [facility] URO 0.2 MG/DL Normal 0-1.0 [facility] Basophils Auto (Bld) [#/Vol] on 02-07-2021 Basophils (Bld) [#/Vol] 0.0 10*3/uL 0.0-0.2 [facility] Basophils/100 WBC Auto (Bld) on 02-07-2021 Basophils/100 WBC (Bld) 0.2 % [facility] Blood hemoglobin measurement (mass/volume)on 02-07-2021 Hemoglobin (Bld) [Mass/Vol] 12.8 g/dL 13.0-17.0 [facility] Blood leukocytes automated c ount (number/volume)on 02-07-2021 WBC (Bld) [#/Vol] 3.5 10*3/uL 4.5-11.0 [facility] Body fluid albumin measureme nt (mass/volume)on 02-07-2021 Albumin (Body fld) [Mass/Vol] 3.7 g/dL 3.2-5.5 [facility] Cholesterol [Mass/volume] in Serum or Plasmaon 02-07-2021 Cholesterol [Mass/Vol] 127 mg/dL 140-200 [facility] Comment on above: Chol less than 200 m g/dl low riskChol 201-239 mg/dl borderline riskChol 240 mg/dl and greater high risk Cholesterol in LDL Calc [Mas s/Vol]on 02-07-2021 Cholesterol in LDL [Mass/Vol] 66 mg/dL 0-100 [facility] Comment on above: LDL ATP III CLASSIFI CATIONLDL less than 100 mg/dL OptimalLDL 100-129 mg/dL Near or above optimalLDL 130-159 mg/dL Borderline highLDL 160-189 mg/dL HighLDL greater than 189 mg/dL Very high Cholesterol in VLDL Calc [Ma ss/Vol]on 02-07-2021 Cholesterol in VLDL [Mass/Vol] 10 mg/dL [facility] Creatinine and Glomerular fi ltration rate.predicted panel (S/P/Bld)on 02-07-2021 Creatinine [Mass/Vol] 0.95 mg/dL 0.64-1.27 [facility] Eosinophils Auto (Bld) [#/Vo l]on 02-07-2021 Eosinophils (Bld) [#/Vol] 0.2 10*3/uL 0.0-0.45 [facility] Eosinophils/100 WBC Auto (Bl d)on 02-07-2021 Eosinophils/100 WBC (Bld) 5.2 % [facility] Erythrocyte distribution wid th Auto (RBC) [Ratio]on 02-07-2021 Erythrocyte distribution width (RBC) [Ratio] 13.0 % 12.0-14.8 [facility] Estimated glomerular filtrat ion rate (GFR) non- Americanon 02-07-2021 GFR/1.73 sq M.predicted among non-blacks MDRD (S/P/Bld) [Vol rate/Area] > 60 mL/Min [facility] Globulin Calc (S) [Mass/Vol] on 02-07-2021 Globulin (S) [Mass/Vol] 3.6 g/dL [facility] Hematocrit Auto (Bld) [Volum e fraction]on 02-07-2021 Hematocrit (Bld) [Volume fraction] 38.4 % 38.8-50.0 [facility] - Hematology and Cell countson 02-07-2021 Nucleated RBC/100 WBC (Bld) [Ratio] 0.1 % 0-0.5 [facility] Lymphocytes Auto (Bld) [#/Vo l]on 02-07-2021 Lymphocytes (Bld) [#/Vol] 1.2 10*3/uL 1.00-4.8 [facility] Lymphocytes/100 WBC Auto (Bl d)on 02-07-2021 Lymphocytes/100 WBC (Bld) 33.5 % [facility] MCH Auto (RBC) [Entitic mass ]on 02-07-2021 MCH (RBC) [Entitic mass] 35.8 pg 27.5-35.2 [facility] MCHC Auto (RBC) [Mass/Vol]on 02-07-2021 MCHC (RBC) [Mass/Vol] 33.4 g/dL 32.5-35.6 [facility] MCV Auto (RBC) [Entitic vol] on 02-07-2021 MCV (RBC) [Entitic vol] 107.1 fL 83.5-101 [facility] Monocytes Auto (Bld) [#/Vol] on 02-07-2021 Monocytes (Bld) [#/Vol] 0.4 10*3/uL 0.0-0.8 [facility] Monocytes/100 WBC Auto (Bld) on 02-07-2021 Monocytes/100 WBC (Bld) 10.3 % [facility] Neutrophils Auto (Bld) [#/Vo l]on 02-07-2021 Neutrophils (Bld) [#/Vol] 1.8 10*3/uL 1.8-7.7 [facility] Neutrophils/100 WBC Auto (Bl d)on 02-07-2021 Neutrophils/100 WBC (Bld) 50.8 % [facility] No Panel Informationon 02-07 Estimated GFR () > 60 mL/Min [facility] Comment on above: GFR estimated refere nce range: According to KDOQI guidelines, <60 ml/min/1.73m2 is sufficient to diagnose a patient with chronic kidney disease. Pharmacy Creatinine Clearance (Chem N/A [facility] Platelet mean volume Auto (B ld) [Entitic vol]on 02-07-2021 Platelet mean volume (Bld) [Entitic vol] 6.7 fL 6.6-10.1 [facility] Platelets Auto (Bld) [#/Vol] on 02-07-2021 Platelets (Bld) [#/Vol] 220 10*3/uL 150-450 [facility] Protein [Mass/volume] in Ser um or Plasmaon 02-07-2021 Protein [Mass/Vol] 7.3 g/dL 6.1-7.9 [facility] RBC Auto (Bld) [#/Vol]on RBC (Bld) [#/Vol] 3.59 10*6/uL 3.90-5.60 [facility] Serum or plasma alanine huntley otransferase measurement without P-5'-P (enzymatic activion 02-07-2021 ALT No additional P-5'-P [Catalytic activity/Vol] 13 U/L 10-60 [facility] Serum or plasma albumin/glob ulin mass ratioon 02-07-2021 Albumin/Globulin [Mass ratio] 1.0 {ratio} [facility] Serum or plasma alkaline latoya sphatase measurement (enzymatic activity/volume)on 02-07-2021 ALP [Catalytic activity/Vol] 71 U/L 32-92 [facility] Serum or plasma aspartate am inotransferase measurement (enzymatic activity/volume)on 02-07-2021 AST [Catalytic activity/Vol] 13 U/L 10-42 [facility] Serum or plasma calcium ilana urement (mass/volume)on 02-07-2021 Calcium [Mass/Vol] 9.7 mg/dL 8.2-10.2 [facility] Serum or plasma chloride rishabh surement (moles/volume)on 02-07-2021 Chloride [Moles/Vol] 102 mmol/L 95-114 [facility] Serum or plasma glucose ilana urement (mass/volume)on 02-07-2021 Glucose [Mass/Vol] 95 mg/dL 70-100 [facility] Comment on above: ADA recommended refe rence rangeRandom Glucose Reference Range is dependent on time and content of last meal. Glucose of more than 200 mg/dL in a nonstressed, ambulatory subject supports the diagnosis of Diabetes Mellitus. Serum or plasma high density lipoprotein (HDL) cholesterol measurementon 02-07-2021 Cholesterol in HDL [Mass/Vol] 51 mg/dL 29-71 [facility] Comment on above: HDL CHOL ATP-III CLA SSIFICATION Cardiovascular RiskHDL > or equal to 60 mg/dL LOWHDL < 40 mg/dL HIGH Serum or plasma potassium me asurement (moles/volume)on 02-07-2021 Potassium [Moles/Vol] 4.5 mmol/L 3.5-5.1 [facility] Serum or plasma sodium measu rement (moles/volume)on 02-07-2021 Sodium [Moles/Vol] 137 mmol/L 136-146 [facility] Serum or plasma total biliru bin measurement (mass/volume)on 02-07-2021 Bilirubin [Mass/Vol] 0.6 mg/dL 0.3-1.2 [facility] Serum or plasma total carbon dioxide measurement (moles/volume)on 02-07-2021 CO2 [Moles/Vol] 24.7 mmol/L 22.0-30.0 [facility] Serum or plasma total choles terol/high density lipoprotein (HDL) cholesterol mass noni 02-07-2021 Cholesterol.total/Chol esterol in HDL [Mass ratio] 2.5 {ratio} [facility] Serum or plasma urea nitroge n measurement (mass/volume)on 02-07-2021 Urea nitrogen [Mass/Vol] 19 mg/dL 9- [facility] TSH DL <= 0.005 mIU/L Qnon 0 02-07-2021 TSH Qn 1.17 m[IU]/L 0.45-5.33 [facility] Thyroxine (T4) free [Mass/vo lume] in Serum or Plasmaon 02-07-2021 Free T4 [Mass/Vol] 0.88 ng/dL 0.61-1.12 [facility] Triglyceride [Mass/volume] i n Serum or Plasmaon 02-07-2021 Triglyceride [Mass/Vol] 52 mg/dL 35-149 [facility] Comment on above: TRIG ATP III CLASSIF ICATIONTRIG less than 150 mg/dL NormalTRIG 150-199 mg/dL Borderline highTRIG 200-500 mg/dL High TRIG greater than 500 mg/dL Very highStandard traceable to the Center for Disease Conrtrol and Prevention (CDC) test method. WOUND CULTURE-TISSUEon 12-22 WOUND CULTURE-TISSUE Specimen source XXX : SHOULDER RIGHT Performed at [facility] [address] [address] Service Cmnt XXX-Imp: HOLD FOR 2 WEEKS Microscopic observation: NO ORGANISMS SEEN 1+ WBC Bacteria identified: ANAEROBIC GRAM POSITIVE BACILLI ONE COLONY MOST CLOSELY RESEMBLING CUTIBACTERIUM (PROPIONIBACTERIUM) ACNES Performed at [facility],[address] [place] [id number] : FINAL 12/22/2020 Normal [facility] Comment on above: Performed By: #### T [facility] #### [address] [address] CBC with Diffon 12-17-2020 AB IMMATURE NEUT 0.00 K/UL Normal 0.0-0.1 [facility] ABS BASO 0.00 K/UL Normal 0.00-0.22 [facility] ABS EOS 0.00 K/UL Normal 0-0.45 [facility] ABS NEUTROPHILS 2.47 K/UL Normal 1.8-7.7 [facility] ABS.NEUT.CALCULATED 2.47 K/UL Normal [facility] Comment on above: Result Comment: Perf ormed at [facility] [address] [facility] [address] Basophils/100 WBC (Bld) 0.00 % Normal 0-1 [facility] DIFF TYPE AUTO DIFF Normal [facility] Eosinophils/100 WBC (Bld) 0.00 % Normal 0-3 [facility] Erythrocyte distribution width (RBC) [Ratio] 12.1 % Normal 11.7-15.0 [facility] Hematocrit (Bld) [Volume fraction] 30.6 % Low 41-50 [facility] Hemoglobin (Bld) [Mass/Vol] 10.4 g/dL Low 13.5-16.5 [facility] Lymphocytes (Bld) [#/Vol] 0.75 10*3/uL Low 1.2-3.2 [facility] Lymphocytes/100 WBC (Bld) 20.90 % Normal 20-40 [facility] MCH (RBC) [Entitic mass] 36.2 pg High 26-34 [facility] MCHC 34.0 % Normal 31-37 [facility] MCV (RBC) [Entitic vol] 106.6 fL High 80-100 [facility] MEAN PLT VOL 8.4 CU Normal 7.0-12.6 [facility] Monocytes (Bld) [#/Vol] 0.37 10*3/uL Normal 0-0.8 [facility] Monocytes/100 WBC (Bld) 10.30 % High 0-8 [facility] Neutrophils/100 WBC (Bld) 0.00 % Normal 0.0-1.0 [facility] Neutrophils/100 WBC (Bld) 68.80 % Normal 50-70 [facility] Platelets (Bld) [#/Vol] 122 10*3/uL Low 150-450 [facility] RBC (Bld) [#/Vol] 2.87 10*6/uL Low 4.5-5.5 [facility] RDW-SD 47.8 FL Normal 37.0-54.0 [facility] WBC (Bld) [#/Vol] 3.6 10*3/uL Low 4.5-11.0 [facility] COMPREHENSIVE METABOLIC PANE Melvin 12-17-2020 Albumin [Mass/Vol] 3.5 g/dL Normal 3.5-5.0 [facility] Albumin/Globulin [Mass ratio] 1.3 {ratio} Low 1.5-3.0 [facility] ALP [Catalytic activity/Vol] 63 U/L Normal 35-125 [facility] ALT [Catalytic activity/Vol] 10 U/L Normal 5-40 [facility] Comment on above: Result Comment: Perf ormed at [facility] [address] [facility] [address] Anion gap [Moles/Vol] 11 mmol/L Normal 0-19 [facility] AST [Catalytic activity/Vol] 15 U/L Normal 5-40 [facility] Bilirubin [Mass/Vol] 0.7 mg/dL Normal 0.1-1.2 [facility] Calcium [Mass/Vol] 9.0 mg/dL Normal 8.5-10.4 [facility] Chloride [Moles/Vol] 99 mmol/L Normal 97-107 [facility] CO2 [Moles/Vol] 26 mmol/L Normal 24-31 [facility] Creatinine [Mass/Vol] 0.9 mg/dL Normal 0.4-1.6 [facility] Globulin (S) [Mass/Vol] 2.7 g/dL Normal 1.9-3.7 [facility] Glucose [Mass/Vol] 129 mg/dL High 65-99 [facility] Potassium [Moles/Vol] 3.8 mmol/L Normal 3.4-5.1 [facility] Protein [Mass/Vol] 6.2 g/dL Normal 5.9-7.9 [facility] Sodium [Moles/Vol] 136 mmol/L Normal 133-145 [facility] Urea nitrogen [Mass/Vol] 13 mg/dL Normal 8-25 [facility] Urea nitrogen/Creatinine [Mass ratio] 14.4 mg/mg Normal 8-21 [facility] FREE T4on 12-09-2020 Free T4 [Mass/Vol] 1.2 ng/dL Normal 0.9-1.7 [facility] Comment on above: Result Comment: Perf ormed at [address] [address] Performed By: #### T [facility] #### Main Laboratory [address] [address] CBC with Diffon 12-08-2020 ABS NEUTROPHILS 1.38 K/UL Low 1.8-7.7 [facility] Comment on above: Result Comment: DARELL ECTED ON 12/08 AT 1254: PREVIOUSLY REPORTED 1.39 PLATELET ESTIMATE ADEQUATE Normal [facility] RBC morphology finding Nom (Bld) CONSISTENT WITH PERIPHERAL SMEAR Normal [facility] WBC MORPHOLOGY SMEAR REVIEWED AND F OUND CONSISTENT WITH AUTOMATED DIFFERENTIAL Normal [facility] AB IMMATURE NEUT 0.00 K/UL Normal 0.0-0.1 [facility] ABS BASO 0.01 K/UL Normal 0.00-0.22 [facility] ABS EOS 0.20 K/UL Normal 0-0.45 [facility] ABS.NEUT.CALCULATED 1.39 K/UL Normal [facility] Comment on above: Result Comment: Perf ormed at [facility] [address] [facility] [address] Basophils/100 WBC (Bld) 0.30 % Normal 0-1 [facility] DIFF TYPE AUTO DIFF Normal [facility] Eosinophils/100 WBC (Bld) 6.40 % High 0-3 [facility] Erythrocyte distribution width (RBC) [Ratio] 11.9 % Normal 11.7-15.0 [facility] Hematocrit (Bld) [Volume fraction] 40.0 % Low 41-50 [facility] Hemoglobin (Bld) [Mass/Vol] 13.5 g/dL Normal 13.5-16.5 [facility] Lymphocytes (Bld) [#/Vol] 1.20 10*3/uL Normal 1.2-3.2 [facility] Lymphocytes/100 WBC (Bld) 38.60 % Normal 20-40 [facility] MCH (RBC) [Entitic mass] 36.0 pg High 26-34 [facility] MCHC 33.8 % Normal 31-37 [facility] MCV (RBC) [Entitic vol] 106.7 fL High 80-100 [facility] MEAN PLT VOL 8.5 CU Normal 7.0-12.6 [facility] Monocytes (Bld) [#/Vol] 0.31 10*3/uL Normal 0-0.8 [facility] Monocytes/100 WBC (Bld) 10.00 % High 0-8 [facility] Neutrophils/100 WBC (Bld) 0.00 % Normal 0.0-1.0 [facility] Neutrophils/100 WBC (Bld) 44.70 % Low 50-70 [facility] Platelets (Bld) [#/Vol] 168 10*3/uL Normal 150-450 [facility] RBC (Bld) [#/Vol] 3.75 10*6/uL Low 4.5-5.5 [facility] RDW-SD 46.6 FL Normal 37.0-54.0 [facility] WBC (Bld) [#/Vol] 3.1 10*3/uL Low 4.5-11.0 [facility] COMPREHENSIVE METABOLIC PANE Melvin 12-08-2020 Albumin [Mass/Vol] 4.2 g/dL Normal 3.5-5.0 [facility] Albumin/Globulin [Mass ratio] 1.3 {ratio} Low 1.5-3.0 [facility] ALP [Catalytic activity/Vol] 77 U/L Normal 35-125 [facility] ALT [Catalytic activity/Vol] 10 U/L Normal 5-40 [facility] Anion gap [Moles/Vol] 10 mmol/L Normal 0-19 [facility] AST [Catalytic activity/Vol] 16 U/L Normal 5-40 [facility] Bilirubin [Mass/Vol] 0.7 mg/dL Normal 0.1-1.2 [facility] Calcium [Mass/Vol] 9.6 mg/dL Normal 8.5-10.4 [facility] Chloride [Moles/Vol] 102 mmol/L Normal 97-107 [facility] CO2 [Moles/Vol] 28 mmol/L Normal 24-31 [facility] Creatinine [Mass/Vol] 1.1 mg/dL Normal 0.4-1.6 [facility] ESTIMATED GFR 70 mL/min/1.73 m2 Normal [facility] Comment on above: Result Comment: GFR ml/min/1.73m2 Stage ----- 90 1 60-89 2 30-59 3 15-29 4 <15 5 For -Americans, multiply EGFR result by 1.210 Calculation not validated for patients under 18 years of age. Performed at [facility] [address] [facility] [address] Globulin (S) [Mass/Vol] 3.2 g/dL Normal 1.9-3.7 [facility] Glucose [Mass/Vol] 94 mg/dL Normal 65-99 [facility] Potassium [Moles/Vol] 4.1 mmol/L Normal 3.4-5.1 [facility] Protein [Mass/Vol] 7.4 g/dL Normal 5.9-7.9 [facility] Sodium [Moles/Vol] 140 mmol/L Normal 133-145 [facility] Urea nitrogen [Mass/Vol] 15 mg/dL Normal 8-25 [facility] Urea nitrogen/Creatinine [Mass ratio] 13.6 mg/mg Normal 8-21 [facility] EKGon 12-08-2020 Electrocardiogram EKG Ventricular Rate : 57 BPM Atrial Rate : 57 BPM P-R Interval : 174 ms QRS Duration : 102 ms Q-T Interval : 430 ms QTC Calculation(Bazett) : 418 ms Calculated P [place] : 74 degrees Calculated R [place] : 56 degrees Calculated T [place] : 69 degrees Diagnosis:Sinus bradycardia with Premature atrial complexes and Premature ventricular complexes or Fusion complexes Otherwise normal ECG When compared with ECG of 08-DEC-2020 11:04, Premature atrial complexes are now Present Confirmed by XIN TONG DO ([id number]) on 12/10/2020 9:36:45 AM [facility] Electrocardiogram EKG Ventricular Rate : 51 BPM Atrial Rate : 51 BPM P-R Interval : 186 ms QRS Duration : 102 ms Q-T Interval : 432 ms QTC Calculation(Bazett) : 398 ms Calculated P [place] : 70 degrees Calculated R [place] : 44 degrees Calculated T [place] : 63 degrees Diagnosis:Sinus bradycardia with occasional Premature ventricular complexes Otherwise normal ECG No previous ECGs available Confirmed by XIN TONG DO ([id number]) on 12/10/2020 9:37:02 AM [facility] SARS-CoV-2,INFLUENZA A/B NUC LEIC ACID TESTon 12-08-2020 EUA DISCLAIMER [facility] Comment on above: Result Comment: [...] is terminated or revoked sooner. Performed at [address] [address] FLU A by PCR Negative [facility] FLU B by PCR Negative [facility] SARS-CoV-2 (COVID-19) RNA KEIKO+probe Ql (Unsp spec) Negative Normal NEG [facility] TSHon 12-08-2020 TSH 0.24 MIU/L Low 0.27-4.20 [facility] Comment on above: Result Comment: Perf ormed at [address] [address] Performed By: #### T [facility] ####[place] [address] [address] UA-REFLEX TO CULTUREon 12-08 RBC OCC Normal 0-3 [facility] Urinalysis dipstick W Reflex Microscopic panel (U) MANUAL MICROSCOPIC URINES Normal [facility] WBC OCC Normal 0-3 [facility] OTHER Normal [facility] Comment on above: Result Comment: PRES ENT MUCOUS Performed at [address] [address] Bacteria identified Cx Nom (U) CULTURE NOT INDICATED Normal [facility] Comment on above: Result Comment: CULT URE NOT INDICATED Performed at [address] [address] BILI Negative Normal [facility] Clarity (U) CLEAR Normal [facility] Color (U) YELLOW Normal [facility] GLUC Negative Normal NEG [facility] Hemoglobin Ql (U) Negative Normal NEG [facility] KET Negative Normal NEG [facility] LEUK Negative Normal NEG [facility] NIT Negative Normal NEG [facility] pH (U) 6.0 [pH] Normal 4.6-8.0 [facility] PROT TRACE Abnormal NEG [facility] SP GRAV,URINE 1.025 Normal 1.005-1.03 0 [facility] URO 0.2 MG/DL Normal 0-1.0 [facility] B12/Folate Panelon 1 Cobalamin (Vitamin B12) [Mass/Vol] 507 pg/mL Normal 232-1245 [facility] Comment on above: Performed By: #### F T4, B12FOL, TSHX #### [facility] [employer] [address] [place] [address] [id number] Tongue Presser: Juan F Dominguze MD Folic Acid 10.6 ng/mL Normal >4.8 [facility] Comment on above: Performed By: #### F T4, B12FOL, TSHX #### [facility] [employer] [address] [place] [address] [phone] Tongue Presser: Juan F Dominguez MD T4, Freeon 10-13-2020 Thyroxine, Free 0.97 ng/dL 0.93 - 1.7 ng/dL [place] TSH w/reflex to FT4on 2020 TSH Qn 0.04 m[IU]/L Low 0.30-5.00 [facility] Comment on above: Performed By: #### F T4, B12FOL, TSHX #### [facility] [employer] [address] [place] [address] [id number] Tongue Presser: Juan F Dominguez MD TSH with Reflexon 10-13-2020 Interpretation and review of laboratory results Abnormal [place] TSH Qn 0.04 m[IU]/L Low [place] Thyroxine, Freeon 10-13-2020 Thyroxine, Free 0.97 ng/dL Normal 0.93-1.70 [facility] Comment on above: Performed By: #### F T4, B12FOL, TSHX #### [facility] [employer] [address] [place] [address] [phone] Tongue Presser: Juan F Dominguez MD Vitamin B12 & Folateon 10-13 Cobalamin (Vitamin B12) [Mass/Vol] 507 pg/mL 232 - 1245 pg/mL [place], [place] Folate 10.6 ng/mL >4.8 [place], [place] C REACTIVE PROTEINon 021 C REACTIVE PROTEIN 0.3 MG/DL Normal 0-2.0 [facility] Comment on above: Result Comment: LESS THAN Performed at [address] [address] Performed By: #### C #### Main Laboratory [address] [address] CBC with Diffon 10-11-2020 AB IMMATURE NEUT 0.00 K/UL Normal 0.0-0.1 [facility] ABS BASO 0.02 K/UL Normal 0.00-0.22 [facility] ABS EOS 0.21 K/UL Normal 0-0.45 [facility] ABS NEUTROPHILS 1.64 K/UL Low 1.8-7.7 [facility] ABS.NEUT.CALCULATED 1.64 K/UL Normal [facility] Comment on above: Result Comment: Perf ormed at [facility] [address] [facility] [address] Basophils/100 WBC (Bld) 0.50 % Normal 0-1 [facility] DIFF TYPE AUTO DIFF Normal [facility] Eosinophils/100 WBC (Bld) 5.10 % High 0-3 [facility] Erythrocyte distribution width (RBC) [Ratio] 11.3 % Low 11.7-15.0 [facility] Hematocrit (Bld) [Volume fraction] 39.6 % Low 41-50 [facility] Hemoglobin (Bld) [Mass/Vol] 13.6 g/dL Normal 13.5-16.5 [facility] Lymphocytes (Bld) [#/Vol] 1.74 10*3/uL Normal 1.2-3.2 [facility] Lymphocytes/100 WBC (Bld) 42.00 % High 20-40 [facility] MCH (RBC) [Entitic mass] 36.2 pg High 26-34 [facility] MCHC 34.3 % Normal 31-37 [facility] MCV (RBC) [Entitic vol] 105.3 fL High 80-100 [facility] MEAN PLT VOL 8.4 CU Normal 7.0-12.6 [facility] Monocytes (Bld) [#/Vol] 0.53 10*3/uL Normal 0-0.8 [facility] Monocytes/100 WBC (Bld) 12.80 % High 0-8 [facility] Neutrophils/100 WBC (Bld) 0.00 % Normal 0.0-1.0 [facility] Neutrophils/100 WBC (Bld) 39.60 % Low 50-70 [facility] Platelets (Bld) [#/Vol] 186 10*3/uL Normal 150-450 [facility] RBC (Bld) [#/Vol] 3.76 10*6/uL Low 4.5-5.5 [facility] RDW-SD 44.8 FL Normal 37.0-54.0 [facility] WBC (Bld) [#/Vol] 4.1 10*3/uL Low 4.5-11.0 [facility] SEDIMENTATION RATEon 021 SEDIMENTATION RATE 50 MM/HR High 0-12 [facility] Comment on above: Result Comment: Perf ormed at [facility] [address] [facility] [address] Automated basophil %on 10-07 Basophils/100 WBC (Bld) 0.2 % [facility] Automated basophil counton 0 2020 Basophils (Bld) [#/Vol] 0.0 10*3/uL 0.0-0.2 [facility] Automated blood lymphocyte c ount (number/volume)on 2020 Lymphocytes (Bld) [#/Vol] 1.2 10*3/uL 1.00-4.8 [facility] Automated blood lymphocyte c ount as percentage of total leukocyteson 2020 Lymphocytes/100 WBC (Bld) 25.0 % [facility] Automated blood monocyte cou nton 2020 Monocytes (Bld) [#/Vol] 0.6 10*3/uL 0.0-0.8 [facility] Automated blood platelet cou nt (count/volume)on 2020 Platelets (Bld) [#/Vol] 177 10*3/uL 150-450 [facility] Automated blood platelet rishabh n volume measurementon 2020 Platelet mean volume (Bld) [Entitic vol] 6.9 fL 6.6-10.1 [facility] Automated eosinophil %on Eosinophils/100 WBC (Bld) 3.8 % [facility] Automated eosinophil counton 2020 Eosinophils (Bld) [#/Vol] 0.2 10*3/uL 0.0-0.45 [facility] Automated erythrocyte distri bution width ratioon 2020 Erythrocyte distribution width (RBC) [Ratio] 12.3 % 12.0-14.8 [facility] Automated erythrocyte mean c orpuscular hemoglobin (mass per erythrocyte)on 2020 MCH (RBC) [Entitic mass] 35.9 pg 27.5-35.2 [facility] Automated erythrocyte mean c orpuscular hemoglobin concentration measurement (mass/volon 2020 MCHC (RBC) [Mass/Vol] 34.2 g/dL 32.5-35.6 [facility] Automated erythrocyte mean c orpuscular volumeon 2020 MCV (RBC) [Entitic vol] 105.1 fL 83.5-101 [facility] Automated monocyte %on 10-07 Monocytes/100 WBC (Bld) 12.5 % [facility] Automated neutrophil %on Neutrophils/100 WBC (Bld) 58.5 % [facility] Blood erythrocytes automated count (number/volume)on 2020 RBC (Bld) [#/Vol] 3.74 10*6/uL 3.90-5.60 [facility] Blood hemoglobin measurement (mass/volume)on 2020 Hemoglobin (Bld) [Mass/Vol] 13.4 g/dL 13.0-17.0 [facility] Blood leukocytes automated c ount (number/volume)on 2020 WBC (Bld) [#/Vol] 4.6 10*3/uL 4.5-11.0 [facility] Blood neutrophil count by au tomated method (number/volume)on 2020 Neutrophils (Bld) [#/Vol] 2.7 10*3/uL 1.8-7.7 [facility] Body fluid albumin measureme nt (mass/volume)on 2020 Albumin (Body fld) [Mass/Vol] 3.6 g/dL 3.2-5.5 [facility] Cholesterol [Mass/volume] in Serum or Plasmaon 2020 Cholesterol [Mass/Vol] 93 mg/dL 140-200 [facility] Comment on above: Chol less than 200 m g/dl low riskChol 201-239 mg/dl borderline riskChol 240 mg/dl and greater high risk Cholesterol in LDL [Mass/vol ume] in Serum or Plasma by calculationon 2020 Cholesterol in LDL [Mass/Vol] 42 mg/dL 0-100 [facility] Comment on above: LDL ATP III CLASSIFI CATIONLDL less than 100 mg/dL OptimalLDL 100-129 mg/dL Near or above optimalLDL 130-159 mg/dL Borderline highLDL 160-189 mg/dL HighLDL greater than 189 mg/dL Very high Cholesterol in VLDL [Mass/vo lume] in Serum or Plasma by calculationon 2020 Cholesterol in VLDL [Mass/Vol] 7 mg/dL [facility] Estimated glomerular filtrat ion rate (GFR) non- Americanon 2020 GFR/1.73 sq M predicted among non-blacks MDRD (S/P/Bld) [Vol rate/Area] 51 mL/min/{1.73_m2} [facility] Hematocrit [Volume Fraction] of Blood by Automated counton 2020 Hematocrit (Bld) [Volume fraction] 39.3 % 38.8-50.0 [facility] Otheron 2020 GFR/1.73 sq M.predicted MDRD (S/P/Bld) [Vol rate/Area] mL/min/{1.73_m2} [facility] Comment on above: GFR estimated refere nce range: According to KDOQI guidelines, <60 ml/min/1.73m2 is sufficient to diagnose a patient with chronic kidney disease. Nucleated RBC/100 WBC (Bld) [Ratio] 0.0 % 0-0.5 [facility] Creatinine Clearance (Chem N/A [facility] Protein [Mass/volume] in Ser um or Plasmaon 2020 Protein [Mass/Vol] 7.3 g/dL 6.1-7.9 [facility] Serum globulin measurement b y calculation (mass/volume)on 2020 Globulin (S) [Mass/Vol] 3.7 g/dL [facility] Serum or plasma alanine huntley otransferase measurement without P-5'-P (enzymatic activion 2020 ALT No additional P-5'-P [Catalytic activity/Vol] 23 U/L 10-60 [facility] Serum or plasma albumin/glob ulin mass ratioon 2020 Albumin/Globulin [Mass ratio] 1.0 {ratio} [facility] Serum or plasma alkaline latoya sphatase measurement (enzymatic activity/volume)on 2020 ALP [Catalytic activity/Vol] 63 U/L 32-92 [facility] Serum or plasma aspartate am inotransferase measurement (enzymatic activity/volume)on 2020 AST [Catalytic activity/Vol] 18 U/L 10-42 [facility] Serum or plasma calcium ilana urement (mass/volume)on 2020 Calcium [Mass/Vol] 9.8 mg/dL 8.2-10.2 [facility] Serum or plasma chloride rishabh surement (moles/volume)on 2020 Chloride [Moles/Vol] 104 mmol/L 95-114 [facility] Serum or plasma creatinine m easurement with calculation of estimated glomerular filtron 2020 Creatinine [Mass/Vol] 1.37 mg/dL 0.64-1.27 [facility] Serum or plasma glucose ilana urement (mass/volume)on 2020 Glucose [Mass/Vol] 116 mg/dL 70-100 [facility] Comment on above: ADA recommended refe rence rangeRandom Glucose Reference Range is dependent on time and content of last meal. Glucose of more than 200 mg/dL in a nonstressed, ambulatory subject supports the diagnosis of Diabetes Mellitus. Serum or plasma high density lipoprotein (HDL) cholesterol measurementon 2020 Cholesterol in HDL [Mass/Vol] 43 mg/dL 29-71 [facility] Comment on above: HDL CHOL ATP-III CLA SSIFICATION Cardiovascular RiskHDL > or equal to 60 mg/dL LOWHDL < 40 mg/dL HIGH Serum or plasma potassium me asurement (moles/volume)on 2020 Potassium [Moles/Vol] 4.1 mmol/L 3.5-5.1 [facility] Serum or plasma sodium measu rement (moles/volume)on 2020 Sodium [Moles/Vol] 140 mmol/L 136-146 [facility] Serum or plasma total biliru bin measurement (mass/volume)on 2020 Bilirubin [Mass/Vol] 0.7 mg/dL 0.3-1.2 [facility] Serum or plasma total carbon dioxide measurement (moles/volume)on 2020 CO2 [Moles/Vol] 24.4 mmol/L 22.0-30.0 [facility] Serum or plasma total choles terol/high density lipoprotein (HDL) cholesterol mass noni 2020 Cholesterol.total/Chol esterol in HDL [Mass ratio] 2.2 {ratio} [facility] Serum or plasma urea nitroge n measurement (mass/volume)on 2020 Urea nitrogen [Mass/Vol] 24 mg/dL 9-23 [facility] Triglyceride [Mass/volume] i n Serum or Plasmaon 2020 Triglyceride [Mass/Vol] 39 mg/dL 35-149 [facility] Comment on above: TRIG ATP III CLASSIF [...] Jeffery Caceres MD 02/04/20 Final result [facility] 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 [place], [place] EXAMINATION: CT OF T HE HEAD WITHOUT [...] of the visualized skull or soft tissues. [place], [place], Mhpn Incoming R adiant Results From [employer] - 02/04/2020 4:14 PM EDT EXAMINATION: CT [...] cerebral artery infarct without evidence for hemorrhage. [place], [place] EVENT MONITORon 01-07-[address] [id number] EVENT MONITOR PATIENT NAME: NEIL WILCOX : 1945 MED REC NO: [id number] ROOM: 0544 ACCOUNT NO: [id number] ADMIT DATE: 12/21/2019 PROVIDER: Sabine Schrader EVENT [...] couplets. SABINE SCHRADER /BAN Doc#: Unknown [facility] CTA HEAD NECK W CONTRASTon 0 [...] Wilton Parekh MD 12/22/19 Final result [facility] Comp Metabolic Pr/rfx MGon 0 12-22-2019 AST [Catalytic activity/Vol] 21 U/L Normal <40 [facility] Comment on above: Performed By: #### C MPX, GLYHGB, LIPR, LACTIC, CDP #### [facility] [address] [place] [address] Tongue Presser: Juan F Dominguez MD Drug Scr, Abuse, Uron 2019 Amphetamine(s),Ur Negative Normal NEG [facility] Comment on above: Result Comment: (Positive cutoff 1000 ng/mL) Performed By: #### Artem SCHULZ UA, UMICAO #### [facility] [address] [place] [phone] Tongue Presser: Juan F Dominguez MD Barbiturate(s),Ur Positive Abnormal NEG [facility] Comment on above: Result Comment: (Positive cutoff 200 ng/mL) Performed By: #### Artem SCHULZ UA, UMICAO #### [facility] [address] [place] [phone] Tongue Presser: Juan F Dominguez MD Base excess Calc (Bld) [Moles/Vol] Negative Normal [facility] Comment on above: Result Comment: (Positive cutoff 300 ng/mL) Performed By: #### Artem SCHULZ UA, UMICAO #### [facility] [address] [place] [address] Tongue Presser: Juan F Dominguez MD Benzodiazepine(s) Negative Normal NEG [facility] Comment on above: Result Comment: (Positive cutoff 200 ng/mL) Performed By: #### Artem SCHULZ UA, UMICAO #### [facility] [address] [place] [address] Tongue Presser: Juan F Dominguez MD Cannabinoid(s),Ur Negative Normal NEG [facility] Comment on above: Result Comment: (Positive cutoff 50 ng/mL) Performed By: #### Artem SCHULZ UA, UMICAO #### [facility] [address] [place] [address] Tongue Presser: Juan F Dominguez MD Interpretive Info Assay provides medic al screening only. The absence of expected drug(s) and/or [facility] Comment on above: Result Comment: meta bolite(s) may indicate diluted or adulterated urine, limitations of testing or timing of collection. Testing for legal purposes should be confirmed by another method. To request confirmation of test result, please call the lab within 7 days of sample submission. Performed By: #### ALEXIS MIRANDA, UMICAO #### [facility] [address] [place] [phone] Tongue Presser: Juan F Dominguez MD Methadone Ql (U) Negative Normal NEG [facility] Comment on above: Result Comment: (Positive cutoff 300 ng/mL) Performed By: #### ALEXIS MIRANDA, UMICAO #### [facility] [employer] [address] [place] [address] Tongue Presser: Juan F Dominguez MD Opiate(s), Ur Negative Normal NEG [facility] Comment on above: Result Comment: (Positive cutoff 300 ng/mL) Performed By: #### ALEXIS MIRANDA, UMICAO #### [facility] [address] [place] [address] Tongue Presser: Juan F Dominguez MD Oxycodone, Urine Negative Normal NEG [facility] Comment on above: Result Comment: (Positive cutoff 100 ng/mL) Performed By: #### Artem SCHULZ UA, UMICAO #### [facility] [address] [place] [address] Tongue Presser: Juan F Dominguez MD Phencyclidine, Ur Negative Normal NEG [facility] Comment on above: Result Comment: (Positive cutoff 25 ng/mL) Performed By: #### Artem SCHULZ UA, UMICAO #### [employer] [address] [place] [address] Tongue Presser: Juan F Dominguez MD Hemoglobin A1Con 12-22-2019 HbA1c (Bld) [Mass fraction] 120 mg/dL [facility] Comment on above: Result Comment: The ADA and AACC recommend providing the estimated average glucose result to permit better patient understanding of their HBA1c result. Performed By: #### ALEXIS MIRANDA, UMICAO #### [facility] [employer] [address] [place] [address] Tongue Presser: Juan F Dominguez MD HbA1c (Bld) [Mass fraction] 5.8 % Normal 4.0-6.0 [facility] Comment on above: Performed By: #### ALEXIS MIRANDA, UMICAO #### [facility] [employer] [address] [place] [address] Tongue Presser: Juan F Dominguez MD Lactic Acidon 12-22-2019 Lactate [Moles/Vol] 1.2 mmol/L Normal 0.7-2.1 [facility] Comment on above: Performed By: #### ALEXIS MIRANDA, UMICAO #### [facility] [employer] [address] [place] [address] Tongue Presser: Juan F Dominguez MD Lipid Profileon 12-22-2019 Cholesterol [Mass/Vol] 137 mg/dL Normal <200 [facility] Comment on above: Result Comment: Cholesterol Guidelines: <200 Desirable 200-240 Borderline >240 Undesirable Performed By: #### ALEXIS MIRANDA, UMICAO #### [facility] [employer] [address] [place] [address] Tongue Presser: Juan F Dominguez MD Cholesterol in HDL [Mass/Vol] 53 mg/dL Normal >40 [facility] Comment on above: Result Comment: HDL Guidelines: <40 Undesirable 40-59 Borderline >59 Desirable Performed By: #### Artem SCHULZ UA, UMICAO #### [facility] [employer] [address] [place] [address] 23240 Tongue Presser: Juan F Dominguez MD Cholesterol in LDL [Mass/Vol] 73 mg/dL Normal 0-130 [facility] Comment on above: Result Comment: LDL Guidelines: <100 Desirable 100-129 Near to/above Desirable 130-159 Borderline >159 Undesirable Direct (measured) LDL and calculated LDL are not interchangeable tests. Performed By: #### Artem SCHULZ UA, UMICAO #### [address] [address] Tongue Presser: Juan F Dominguez MD Cholesterol.total/Chol esterol in HDL [Mass ratio] 2.6 {ratio} Normal <5 [facility] Comment on above: Performed By: #### Artem AU, UA, UMICAO #### [facility] [employer] [address] [place] [address] 09773 Tongue Presser: Juan F Dominguez MD Triglyceride [Mass/Vol] 57 mg/dL Normal <150 [facility] Comment on above: Result Comment: Triglyceride Guidelines: <150 Desirable 150-199 Borderline 200-499 High >499 Very high Based on AHA Guidelines for fasting triglyceride, June 2012. Performed By: #### Artem SCHULZ UA, UMICAO #### [facility] [employer] [address] [place] [address] Tongue Presser: Juan F Dominguez MD Urinalysis, Routineon 2019 Acetoacetic Acid,Ur TRACE Abnormal NEG [facility] Comment on above: Performed By: #### Artem SCHULZ, UA, UMICAO #### [facility] [employer] [address] [place] [address] 573[address] Tongue Presser: Juan F Dominguez MD Bilirubin, SemiQt,Ur Negative Normal NEG [facility] Comment on above: Performed By: #### Artem SCHULZ UA, UMICAO #### [facility] [employer] [address] [place] [address] Tongue Presser: Juan F Dominguez MD Color (U) YELLOW Normal YEL [facility] Comment on above: Performed By: #### Artem AU, UA, UMICAO #### [facility] [employer] [address] [place] [address]107 Tongue Presser: Juan F Dominguez MD Glucose Ql (U) Negative Normal NEG [facility] Comment on above: Performed By: #### Artem AU, UA, UMICAO #### [facility] [employer] [address] [place] [address] 35674 Tongue Presser: Juan F Dominguez MD Hemoglobin, Ur Negative Normal NEG [facility] Comment on above: Performed By: #### Artem SCHULZ UA, UMICAO #### [facility] [employer] [address] [place] [address] 95944 Tongue Presser: Juan F Dominguez MD Leukocyte esterase Test strip Ql (U) Negative Normal NEG [facility] Comment on above: Performed By: #### Artem SCHULZ UA, UMICAO #### [facility] [employer] [address] [place] [address] Tongue Presser: Juan F Dominguez MD Nitrite,Ur Negative Normal NEG [facility] Comment on above: Performed By: #### Artem SCHULZ UA, UMICAO #### [facility] [employer] [address] [place] [address] 27381 Tongue Presser: Juan F Dominguez MD pH (U) 5.0 [pH] Normal 5.0-8.0 [facility] Comment on above: Performed By: #### Artem SCHULZ UA, UMICAO #### [facility] [employer] [address] [place] [address] Tongue Presser: Juan F Dominguez MD Protein Ql (U) 1+ Abnormal NEG [facility] Comment on above: Performed By: #### Artem SCHULZ UA, UMICAO #### [facility] [employer] [address] [place] [address] 14026 Tongue Presser: Juan F Dominguez MD Specific gravity (U) [Rel density] 1.025 Normal 1.005-1.03 0 [facility] Comment on above: Performed By: #### Artem SCHULZ UA, UMICAO #### [facility] [employer] [address] [place] [address] Tongue Presser: Juan F Dominguez MD Turbidity CLEAR Normal CLEAR [facility] Comment on above: Performed By: #### Artem SCHULZ UA, UMICAO #### [facility] [place] [address] Tongue Presser: Juan F Dominguez MD Urobilinogen,Ur Normal Normal NORM [facility] Comment on above: Performed By: #### Artem AU, UA, UMICAO #### [facility] [address] [place] [address] 9[address] Tongue Presser: Juan F Dominguez MD Urinalysis,Microon 0 ----- [facility] Comment on above: Performed By: #### Artem SCHULZ, UA, UMICAO #### [address] [address] Tongue Presser: Juan F Dominguez MD Casts LM.LPF (Urine sed) [#/Area] 2 TO 5 HYALINE Normal 0-8 [facility] Comment on above: Result Comment: Refe rence range defined for non-centrifuged specimen. Performed By: #### Artem SCHULZ UA, UMICAO #### [facility] [employer] [address] [place] [address] 58248 Tongue Presser: Juan F Dominguez MD Epithelial cells LM.HPF (Urine sed) [#/Area] 0 TO 2 Normal 0-5 [facility] Comment on above: Performed By: #### Artem SCHULZ UA, UMICAO #### [facility] [employer] [address] [place] [address] 23482 Tongue Presser: Juan F Dominguez MD RBC (U) [#/Vol] 0 TO 2 Normal 0-4 [facility] Comment on above: Result Comment: Refe rence range defined for non-centrifuged specimen. Performed By: #### Artem AU, UA, UMICAO #### [facility] [address] [place] [address] Tongue Presser: Juan F Dominguez MD WBC (U) [#/Vol] 2 TO 5 Normal 0-5 [facility] Comment on above: Performed By: #### Artem AU, UA, UMICAO #### [address] [address] Tongue Presser: Juan F Dominguez MD CBC with Diffon 12-21-2019 Abs. Basophil <0.03 Normal 0.00-0.20 [facility] Comment on above: Performed By: #### C MPX, GLYHGB, LIPR, LACTIC, CDP #### [address] [address] Tongue Presser: Juan F Dominguez MD Abs.Imm.Granulocyte <0.03 Normal 0.00-0.30 [facility] Comment on above: Performed By: #### C MPX, GLYHGB, LIPR, LACTIC, CDP #### [address] [address] Tongue Presser: Juan F Dominguez MD Abs.Neutrophil (Seg) 2.41 k/uL Normal 1.50-8.10 [facility] Comment on above: Performed By: #### C MPX, GLYHGB, LIPR, LACTIC, CDP #### [address] [address] Tongue Presser: Juan F Dominguez MD Basophils/100 WBC (Bld) 0 % Normal 0-2 [facility] Comment on above: Performed By: #### C MPX, GLYHGB, LIPR, LACTIC, CDP #### [address] [address] Tongue Presser: Juan F Dominguez MD Eosinophils (Bld) [#/Vol] 0.08 10*3/uL Normal 0.00-0.44 [facility] Comment on above: Performed By: #### C MPX, GLYHGB, LIPR, LACTIC, CDP #### [facility] [employer] [address] [place] [address] Tongue Presser: Juan F Dominguez MD Eosinophils/100 WBC (Bld) 2 % Normal 1-4 [facility] Comment on above: Performed By: #### C MPX, GLYHGB, LIPR, LACTIC, CDP #### [address] [address] Tongue Presser: Juan F Dominguez MD Erythrocyte distribution width (RBC) [Ratio] 11.9 % Normal 11.8-14.4 [facility] Comment on above: Performed By: #### C MPX, GLYHGB, LIPR, LACTIC, CDP #### [address] [address] Tongue Presser: Juan F Domignuez MD Hematocrit (Bld) [Volume fraction] 38.8 % Low 40.7-50.3 [facility] Comment on above: Performed By: #### C MPX, GLYHGB, LIPR, LACTIC, CDP #### [address] [address] Tongue Presser: Juan F Dominguez MD Hemoglobin (Bld) [Mass/Vol] 13.6 g/dL Normal 13.0-17.0 [facility] Comment on above: Performed By: #### C MPX, GLYHGB, LIPR, LACTIC, CDP #### [address] [address] Tongue Presser: Juan F Dominguez MD Immature granulocytes (Bld) [#/Vol] 0 % Normal 0 [facility] Comment on above: Performed By: #### C MPX, GLYHGB, LIPR, LACTIC, CDP #### [address] [address] Tongue Presser: Juan F Dominguez MD Lymphocytes (Bld) [#/Vol] 1.11 10*3/uL Normal 1.10-3.70 [facility] Comment on above: Performed By: #### C MPX, GLYHGB, LIPR, LACTIC, CDP #### [facility] [address] [place] [address] Tongue Presser: Juan F Dominguez MD Lymphocytes/100 WBC (Bld) 28 % Normal 24-43 [facility] Comment on above: Performed By: #### C MPX, GLYHGB, LIPR, LACTIC, CDP #### [address] [address] Tongue Presser: Juan F Dominguez MD MCH (RBC) [Entitic mass] 35.8 pg High 25.2-33.5 [facility] Comment on above: Performed By: #### C MPX, GLYHGB, LIPR, LACTIC, CDP #### [address] [address] Tongue Presser: Juan F Dominguez MD MCHC (RBC) [Mass/Vol] 35.1 g/dL High 28.4-34.8 [facility] Comment on above: Performed By: #### C MPX, GLYHGB, LIPR, LACTIC, CDP #### [address] [address] Tongue Presser: Juan F Dominguez MD MCV (RBC) [Entitic vol] 102.1 fL Normal 82.6-102.9 [facility] Comment on above: Performed By: #### C MPX, GLYHGB, LIPR, LACTIC, CDP #### [address] [address] Tongue Presser: Juan F Dominguez MD Monocytes (Bld) [#/Vol] 0.41 10*3/uL Normal 0.10-1.20 [facility] Comment on above: Performed By: #### C MPX, GLYHGB, LIPR, LACTIC, CDP #### [address] [address] Tongue Presser: Juan F Dominguez MD Monocytes/100 WBC (Bld) 10 % Normal 3-12 [facility] Comment on above: Performed By: #### C MPX, GLYHGB, LIPR, LACTIC, CDP #### [address] [address] Tongue Presser: Juan F Dominguez MD Neutrophil (Seg) 60 % Normal 36-65 [facility] Comment on above: Performed By: #### C MPX, GLYHGB, LIPR, LACTIC, CDP #### [address] [address] Tongue Presser: Juan F Domniguez MD NRBC Automated 0.0 per 100 WBC Normal 0.0 [facility] Comment on above: Performed By: #### C MPX, GLYHGB, LIPR, LACTIC, CDP #### [address] [address] Tongue Presser: Juan F Dominguez MD Platelet mean volume (Bld) [Entitic vol] 8.2 fL Normal 8.1-13.5 [facility] Comment on above: Performed By: #### C MPX, GLYHGB, LIPR, LACTIC, CDP #### [address] [address] Tongue Presser: Juan F Dominguez MD Platelets (Bld) [#/Vol] 200 10*3/uL Normal 138-453 [facility] Comment on above: Performed By: #### C MPX, GLYHGB, LIPR, LACTIC, CDP #### [address] [address] Tongue Presser: Juan F Dominguez MD RBC (Bld) [#/Vol] 3.80 10*6/uL Low 4.21-5.77 [facility] Comment on above: Performed By: #### C MPX, GLYHGB, LIPR, LACTIC, CDP #### [address] [address] Tongue Presser: Juan F Dominguez MD WBC (Bld) [#/Vol] 4.0 10*3/uL Normal 3.5-11.3 [facility] Comment on above: Performed By: #### C MPX, GLYHGB, LIPR, LACTIC, CDP #### [facility] [address] [place] [address] Tongue Presser: Juan F Dominguez MD Auto Diff Performed NOT REPORTED Normal [facility] Comment on above: Performed By: #### C MPX, GLYHGB, LIPR, LACTIC, CDP #### [address] [address] Tongue Presser: Juan F Dominguez MD Platelets (Bld) [#/Vol] NOT REPORTED Normal [facility] Comment on above: Performed By: #### C MPX, GLYHGB, LIPR, LACTIC, CDP #### [address] [address] Tongue Presser: Juan F Dominguez MD RBC morphology finding Nom (Bld) NOT REPORTED [facility] Comment on above: Performed By: #### C MPX, GLYHGB, LIPR, LACTIC, CDP #### [address] [address] Tongue Presser: Juan F Dominguez MD WBC Morphology NOT REPORTED Normal [facility] Comment on above: Performed By: #### C MPX, GLYHGB, LIPR, LACTIC, CDP #### [address] [address] Tongue Presser: Juan F Dominguez MD Comp Metabolic Pr/rfx MGon 0 12-21-2019 (cont.) [facility] Comment on above: Result Comment: Aver age GFR for 70 or more years old: 75 mL/min/1.73sq m Chronic Kidney Disease: <60 mL/min/1.73sq m Kidney failure: <15 mL/min/1.73sq m eGFR calculated using average adult body mass. Additional eGFR calculator available at: http://www.[employer]D Vision/multiple_crcl_2012.htm Performed By: #### C MPX, GLYHGB, LIPR, LACTIC, CDP #### [facility] [address] [place] [address] Tongue Presser: Juan F Dominguez MD Albumin [Mass/Vol] 3.9 g/dL Normal 3.5-5.2 [facility] Comment on above: Performed By: #### C MPX, GLYHGB, LIPR, LACTIC, CDP #### [facility] [address] [place] [address] Tongue Presser: Juan F Dominguez MD Albumin/Globulin [Mass ratio] 1.2 {ratio} Normal 1.0-2.5 [facility] Comment on above: Performed By: #### C MPX, GLYHGB, LIPR, LACTIC, CDP #### [facility] [address] [place] [address] Tongue Presser: Juan F Dominguez MD Alkaline Phos 80 U/L Normal 40-129 [facility] Comment on above: Performed By: #### C MPX, GLYHGB, LIPR, LACTIC, CDP #### [facility] [address] [place] [address] Tongue Presser: Juan F Dominguez MD ALT [Catalytic activity/Vol] 22 U/L Normal 5-41 [facility] Comment on above: Performed By: #### C MPX, GLYHGB, LIPR, LACTIC, CDP #### [facility] [address] [place] [address] Tongue Presser: Juan F Dominguez MD Anion gap [Moles/Vol] 15 mmol/L Normal 9-17 [facility] Comment on above: Performed By: #### C MPX, GLYHGB, LIPR, LACTIC, CDP #### [facility] [address] [place] [address] Tongue Presser: Juan F Dominguez MD Bilirubin Ql (U) 0.74 mg/dL Normal 0.3-1.2 [facility] Comment on above: Performed By: #### C MPX, GLYHGB, LIPR, LACTIC, CDP #### [facility] [address] [place] [address] Tongue Presser: Juan F Dominguez MD Calcium [Mass/Vol] 9.5 mg/dL Normal 8.6-10.4 [facility] Comment on above: Performed By: #### C MPX, GLYHGB, LIPR, LACTIC, CDP #### [address] [address] Tongue Presser: Juan F Dominguez MD Chloride [Moles/Vol] 99 mmol/L Normal 98-107 [facility] Comment on above: Performed By: #### C MPX, GLYHGB, LIPR, LACTIC, CDP #### [address] [address] Tongue Presser: Juan F Dominguez MD CO2 [Moles/Vol] 20 mmol/L Normal 20-31 [facility] Comment on above: Performed By: #### C MPX, GLYHGB, LIPR, LACTIC, CDP #### [address] [address] Tongue Presser: Juan F Dominguez MD Creatinine [Mass/Vol] 0.77 mg/dL Normal 0.70-1.20 [facility] Comment on above: Performed By: #### C MPX, GLYHGB, LIPR, LACTIC, CDP #### [address] [address] Tongue Presser: Juan F Dominguez MD GFR, Amer >60 Normal >60 [facility] Comment on above: Performed By: #### C MPX, GLYHGB, LIPR, LACTIC, CDP #### [address] [address] Tongue Presser: Juan F Dominguez MD GFR,non Amer >60 Normal >60 [facility] Comment on above: Performed By: #### C MPX, GLYHGB, LIPR, LACTIC, CDP #### [facility] [employer] [address] [place] [address] Tongue Presser: Juan F Dominguez MD Glucose [Mass/Vol] 86 mg/dL Normal 70-99 [facility] Comment on above: Performed By: #### C MPX, GLYHGB, LIPR, LACTIC, CDP #### [facility] [employer] [address] [place] [address] Tongue Presser: Juan F Dominguez MD Potassium [Moles/Vol] 4.2 mmol/L Normal 3.7-5.3 [facility] Comment on above: Performed By: #### C MPX, GLYHGB, LIPR, LACTIC, CDP #### [facility] [employer] [address] [place] [address] Tongue Presser: Juan F Dominguez MD Protein [Mass/Vol] 7.2 g/dL Normal 6.4-8.3 [facility] Comment on above: Performed By: #### C MPX, GLYHGB, LIPR, LACTIC, CDP #### [facility] [employer] [address] [place] [address] Tongue Presser: Juan F Dominguez MD Sodium [Moles/Vol] 134 mmol/L Low 135-144 [facility] Comment on above: Performed By: #### C MPX, GLYHGB, LIPR, LACTIC, CDP #### [facility] [employer] [address] [place] [phone] Tongue Presser: Juan F Dominguez MD Urea nitrogen [Mass/Vol] 16 mg/dL Normal 8-23 [facility] Comment on above: Performed By: #### C MPX, GLYHGB, LIPR, LACTIC, CDP #### [facility] [place] [address] Tongue Presser: Juan F Dominguez MD BUN/CRE Ratio NOT REPORTED Normal - [facility] Comment on above: Performed By: #### C MPX, GLYHGB, LIPR, LACTIC, CDP #### [facility] [address] [place] [address] Tongue Presser: Juan F Dominguez MD Staging: NOT REPORTED Normal [facility] Comment on above: Performed By: #### C MPX, GLYHGB, LIPR, LACTIC, CDP #### [facility] [address] [place] [address] Tongue Presser: Juan F Dominguez MD Drug Scr, Abuse, Uron 2019 Buprenorphrine, Ur NOT REPORTED Normal NEG [facility] Comment on above: Performed By: #### D ZEUS UA, UMICAO #### [facility] [address] [place] [address] Tongue Presser: Juan F Dominguez MD MDMA, Urine NOT REPORTED Normal NEG [facility] Comment on above: Performed By: #### D ZEUS UA, UMICAO #### [facility] [address] [place] [address] Tongue Presser: Juan F Dominguez MD Methamphetamine, Ur NOT REPORTED Normal NEG [facility] Comment on above: Performed By: #### D AU UA, UMICAO #### [facility] [address] [place] [address] Tongue Presser: Juan F Dominguez MD Propoxyphene,Urine NOT REPORTED Normal NEG [facility] Comment on above: Performed By: #### D AU UA, UMICAO #### [facility] [address] [place] [address] Tongue Presser: Juan F Dominguez MD Tricyclic antidepressants Screen Ql (U) NOT REPORTED Normal NEG [facility] Comment on above: Performed By: #### Artem SCHULZ UA, UMICAO #### [facility] [address] [place] [address] Tongue Presser: Juan F Dominguez MD Lactic Acidon 12-21-2019 Lactate [Moles/Vol] NOT REPORTED Normal [facility] Comment on above: Performed By: #### Artem SCHULZ UA, UMICAO #### [facility] [address] [place] [address] Tongue Presser: Juan F Dominguez MD Lipid Profileon 12-21-2019 Cholesterol in VLDL [Mass/Vol] NOT REPORTED Normal 10-23 [facility] Comment on above: Performed By: #### Artem SCHULZ UA, UMICAO #### [facility] [address] [place] [address] Tongue Presser: Juan F Dominguez MD Urinalysis, Routineon 2019 Comment NOT REPORTED Normal [facility] Comment on above: Performed By: #### Artem SCHULZ UA, UMICAO #### [facility] [address] [place] [address] Tongue Presser: Juan F Dominguez MD Urinalysis,Microon 0 Amorphous sediment LM Ql (Urine sed) NOT REPORTED Normal [facility] Comment on above: Performed By: #### Artem SCHULZ UA, UMICAO #### [facility] [address] [place] [address] Tongue Presser: Juan F Dominguez MD Bacteria LM.HPF (Urine sed) [#/Area] NOT REPORTED Normal [facility] Comment on above: Performed By: #### Artem SCHULZ UA, UMICAO #### [facility] [address] [place] [address] Tongue Presser: Juan F Dominguez MD Crystals LM Nom (Urine sed) NOT REPORTED Normal [facility] Comment on above: Performed By: #### D AU, UA, UMICAO #### [facility] [place] [address] Tongue Presser: Juan F Dominguez MD Epithelial, Renal NOT REPORTED Normal 0 [facility] Comment on above: Performed By: #### D AU, UA, UMICAO #### [facility] [place] [address] Tongue Presser: Juan F Dominguez MD Mucus Strands NOT REPORTED Normal [facility] Comment on above: Performed By: #### D AU, UA, UMICAO #### [facility] [address] [place] [id number] Tongue Presser: Juan F Dominguez MD Other Observations NOT REPORTED Normal NREQ [facility] Comment on above: Performed By: #### D AU, UA, UMICAO #### [facility] [address] [place] [id number] Tongue Presser: Juan F Dominguez MD Trichomonas NOT REPORTED Normal [facility]ONE [facility] Comment on above: Performed By: #### D AU, UA, UMICAO #### [facility] [address] [place] [id number] Tongue Presser: Juan F Dominguez MD Yeast LM Ql (Urine sed) NOT REPORTED Normal [facility]ONE [facility] Comment on above: Performed By: #### D AU, UA, UMICAO #### [facility] [address] [place] [id number] Tongue Presser: Juan F Dominguez MD Vital Signs Date Time Vital Sign Value Performing Clinician Facility 03-09-2024 15:11-040 Body temperature 97.9 [degF] DO Sam Cooney Work Phone: [facility] 03-09-2024 15:11-0400 Diastolic blood pressure 74 mm[Hg] DO Sam Cooney Work Phone: [facility] 03-09-2024 15:11-0400 Heart rate 65 /min DO [facility] Work Phone: [facility] 03-09-2024 15:11-0400 Respiratory rate 16 /min DO [facility] [facility] Work Phone: [facility] 03-09-2024 15:11-0400 SaO2% (BldA) [Mass fraction] 97 % DO [facility] [facility] Work Phone: [facility] 03-09-2024 15:11-0400 Systolic blood pressure 135 mm[Hg] DO [facility] Work Phone: [facility] 03-09-2024 06:00-0400 Body weight 77.1 kg DO [facility] [facility] Work Phone: [facility] 03-07-2024 09:29-0400 Body height 175.26 cm DO [facility] [facility] Work Phone: [facility] 03-05-2024 19:10-0400 Body temperature 97.4 [degF] DO [facility] [facility] Work Phone: [facility] 03-05-2024 19:10-0400 Diastolic blood pressure 63 mm[Hg] DO [facility] [facility] Work Phone: [facility] 03-05-2024 19:10-0400 Heart rate 75 /min DO [facility] Work Phone: [facility] 03-05-2024 19:10-0400 Respiratory rate 21 /min DO [facility] [facility] Work Phone: [facility] 03-05-2024 19:10-0400 SaO2% (BldA) [Mass fraction] 98 % DO [facility] [facility] Work Phone: [facility] 03-05-2024 19:10-0400 Systolic blood pressure 135 mm[Hg] DO [facility] [facility] Work Phone: [facility] 03-05-2024 18:45-0400 Body height 175.[address] [facility] Work Phone: [facility] 03-05-2024 18:45-0400 Body weight 76.2 kg DO [facility] [facility] Work Phone: [facility] 03-05-2024 11:31-0400 Diastolic blood pressure 66 mm[Hg] DO [facility] [facility] Work Phone: [facility] 03-05-2024 11:31-0400 Systolic blood pressure 82 mm[Hg] DO [facility] Work Phone: [facility] 03-05-2024 11:30-0400 Heart rate 74 /min DO [facility] [facility] Work Phone: [facility] 03-05-2024 11:30-0400 Respiratory rate 18 /min DO [facility] [facility] Work Phone: [facility] 03-05-2024 11:30-0400 SaO2% (BldA) [Mass fraction] 98 % DO [facility] Work Phone: [facility] 03-03-2024 13:45-0400 Body weight 78.[address] [facility] Work Phone: [facility] 03-03-2024 13:45-0400 Diastolic blood pressure 63 mm[Hg] DO [facility] Work Phone: [facility] 03-03-2024 13:45-0400 Heart rate 71 /min DO [facility] Work Phone: [facility] 03-03-2024 13:45-0400 Respiratory rate 16 /min DO [facility] Work Phone: [facility] 03-03-2024 13:45-0400 SaO2% (BldA) [Mass fraction] 99 % DO [facility] [facility] Work Phone: [facility] 03-03-2024 13:45-0400 Systolic blood pressure 112 mm[Hg] DO [facility] [facility] Work Phone: [facility] 02-21-2024 14:59-0400 Body height 175.26 cm DO Sam Cooney Work Phone: [facility] 02-21-2024 14:59-0400 Body mass index (BMI) [Ratio] 25.4 kg/m2 DO [facility] Work Phone: [facility] 02-21-2024 14:59-0400 Body temperature 97.7 [degF] DO Sam Cooney Work Phone: [facility] 02-21-2024 14:59-0400 Body weight 78.01 kg DO Sam Cooney Work Phone: [facility] 02-21-2024 14:59-0400 Diastolic blood pressure 58 mm[Hg] DO Sam Cooney Work Phone: [facility] 02-21-2024 14:59-0400 Heart rate 74 /min DO Sam Cooney Work Phone: [facility] 02-21-2024 14:59-0400 Respiratory rate 202 /min DO Sam Cooney Work Phone: [facility] 02-21-2024 14:59-0400 SaO2% (BldA) [Mass fraction] 100 % DO Sam Cooney Work Phone: [facility] 02-21-2024 14:59-0400 Systolic blood pressure 93 mm[Hg] DO Sam Cooney Work Phone: [facility] 12-03-2023 15:25-0400 Blood Pressure Location Trung FERGUSON [facility] 12-03-2023 15:25-0400 Diastolic blood pressure 74 mm[Hg] Trung FERGUSON [facility] 12-03-2023 15:25-0400 Heart rate 76 /min Trung FERGUSON [facility] 12-03-2023 15:25-0400 Respiratory rate 16 /min Trung MARTY [facility] 12-03-2023 15:25-0400 Systolic blood pressure 137 mm[Hg] Trung MARTY [facility] 10-22-2023 11:54-0500 Body height 175.3 cm Za Hernández MD Work Phone: [facility] 10-22-2023 11:54-0500 Body mass index (BMI) [Ratio] 27.17 kg/m2 Za Hernández MD Work Phone: [facility] 10-22-2023 11:54-0500 Body weight 83.46 kg Za Hernández MD Work Phone: [facility] 10-22-2023 11:54-0500 Diastolic blood pressure 72 mm[Hg] Za Hernández MD Work Phone: [facility] 10-22-2023 11:54-0500 Heart rate 56 /min Za Hernández MD Work Phone: [facility] 10-22-2023 11:54-0500 Systolic blood pressure 124 mm[Hg] Za Hernández MD Work Phone: [facility] 08-28-2023 12:20-0500 Diastolic blood pressure 78 mm[Hg] Ryan Cobb MD Work Phone: [facility] 08-28-2023 12:20-0500 Heart rate 60 /min Ryan Cobb MD Work Phone: [facility] 08-28-2023 12:20-0500 Respiratory rate 14 /min Ryan Cobb MD Work Phone: [facility] 08-28-2023 12:20-0500 SaO2% (BldA) [Mass fraction] 98 % Ryan Cobb MD Work Phone: [facility] 08-28-2023 12:20-0500 Systolic blood pressure 137 mm[Hg] Ryan Cobb MD Work Phone: [facility] 08-22-2023 08:48-0500 Body height 175.3 cm Ryan Cobb MD Work Phone: [facility] 08-22-2023 08:48-0500 Body mass index (BMI) [Ratio] 25.84 kg/m2 Ryan Cobb MD Work Phone: [facility] 08-22-2023 08:48-0500 Body temperature 96.01 [degF] Ryan Cobb MD Work Phone: [facility] 08-22-2023 08:48-0500 Body weight 79.38 kg Ryan Cobb MD Work Phone: [facility] 08-22-2023 08:48-0500 Diastolic blood pressure 79 mm[Hg] Ryan Cobb MD Work Phone: [facility] 08-22-2023 08:48-0500 Heart rate 60 /min Ryan Cobb MD Work Phone: [facility] 08-22-2023 08:48-0500 Respiratory rate 16 /min Ryan Cobb MD Work Phone: [facility] 08-22-2023 08:48-0500 SaO2% (BldA) [Mass fraction] 96 % Ryan Cobb MD Work Phone: [facility] 08-22-2023 08:48-0500 Systolic blood pressure 151 mm[Hg] Ryan Cobb MD Work Phone: [facility] 07-09-2023 11:04-0400 Diastolic blood pressure 78 mm[Hg] Trung FERGUSON [facility] 07-09-2023 11:04-0400 Heart rate 68 /min Trung FERGUSON [facility] 07-09-2023 11:04-0400 Respiratory rate 16 /min Trung FERGUSON [facility] 07-09-2023 11:04-0400 Systolic blood pressure 132 mm[Hg] Trung FERGUSON [facility] 06-11-2023 11:27-0400 Diastolic blood pressure 60 mm[Hg] Sam Cooney Work Phone: [facility] DO Work Phone: 06-11-2023 11:27-0400 Systolic blood pressure 118 mm[Hg] Sam Cooney Work Phone: [facility] DO Work Phone: 06-11-2023 10:51-0400 Body height 175.[address] Work Phone: [facility] DO Work Phone: 06-11-2023 10:51-0400 Body mass index (BMI) [Ratio] 26.29 kg/m2 Sam Cooney Work Phone: [facility] DO Work Phone: 06-11-2023 10:51-0400 Body surface area Derived from formula 1.[address] [facility] Work Phone: [facility] DO Work Phone: 06-11-2023 10:51-0400 Body weight 80.74 kg Sam Cooney Work Phone: [facility] DO Work Phone: 06-11-2023 10:51-0400 Diastolic blood pressure 76 mm[Hg] [place] [facility] Work Phone: [facility] DO Work Phone: 06-11-2023 10:51-0400 Heart rate 66 /min [facility] Work Phone: [facility] DO Work Phone: 06-11-2023 10:51-0400 Systolic blood pressure 128 mm[Hg] [facility] Work Phone: [facility] DO Work Phone: 04-03-2023 09:05-0400 Blood Pressure Location [place] RITESH [facility] 04-03-2023 09:05-0400 Diastolic blood pressure 56 mm[Hg] [place] RITESH [facility] 04-03-2023 09:05-0400 Heart rate 58 /min [place] RITESH [facility] 04-03-2023 09:05-0400 Respiratory rate 16 /min [place] RITSEH [facility] 04-03-2023 09:05-0400 Systolic blood pressure 96 mm[Hg] [place] RITESH [facility] 02-26-2023 12:14-0400 Diastolic blood pressure 40 mm[Hg] [facility] Work Phone: [facility] DO Work Phone: 02-26-2023 12:14-0400 Systolic blood pressure 82 mm[Hg] [facility] Work Phone: [facility] DO Work Phone: 02-26-2023 12:14-0400 50 1 Sam Cooney Work Phone: [facility] DO Work Phone: Comment on above: [facility] 02-26-2023 11:37-0400 Body height 175.26 cm Sam Cooney Work Phone: [facility] DO Work Phone: 02-26-2023 11:37-0400 Body mass index (BMI) [Ratio] 25.93 kg/m2 Sam Cooney Work Phone: [facility] DO Work Phone: 02-26-2023 11:37-0400 Body surface area Derived from formula 1.95 m2 Sam Cooney Work Phone: [facility] DO Work Phone: 02-26-2023 11:37-0400 Body weight 79.65 kg Sma Cooney Work Phone: [facility] DO Work Phone: 02-26-2023 11:37-0400 Diastolic blood pressure 52 mm[Hg] Sam Cooney Work Phone: [facility] DO Work Phone: 02-26-2023 11:37-0400 Heart rate 56 /min Sam Cooney Work Phone: [facility] DO Work Phone: 02-26-2023 11:37-0400 Systolic blood pressure 98 mm[Hg] Sam Cooney Work Phone: [facility] DO Work Phone: 01-23-2023 14:12-0400 Blood Pressure Location [place] BAKER [facility] 01-23-2023 14:12-0400 Diastolic blood pressure 76 mm[Hg] [place] RITESH [facility] 01-23-2023 14:12-0400 Heart rate 78 /min [place] RITESH [facility] 01-23-2023 14:12-0400 Respiratory rate 16 /min [place] RITESH [facility] 01-23-2023 14:12-0400 Systolic blood pressure 130 mm[Hg] [place] RITESH [facility] 01-01-2023 11:45-0400 Blood Pressure Location Trung FERGUSON [facility] 01-01-2023 11:45-0400 Diastolic blood pressure 88 mm[Hg] Trung FERGUSON [facility] 01-01-2023 11:45-0400 Heart rate 67 /min Trung FERGUSON [facility] 01-01-2023 11:45-0400 Respiratory rate 16 /min Trung FERGUSON [facility] 01-01-2023 11:45-0400 Systolic blood pressure 135 mm[Hg] Trung FERGUSON [facility] 11-03-2022 13:02-0500 Blood Pressure Location Trung FERGUSON [facility] 11-03-2022 13:02-0500 Diastolic blood pressure 74 mm[Hg] Trung FERGUSON [facility] 11-03-2022 13:02-0500 Heart rate 68 /min Trung FERGUSON [facility] 11-03-2022 13:02-0500 Respiratory rate 16 /min Trung FERGUSON [facility] 11-03-2022 13:02-0500 Systolic blood pressure 128 mm[Hg] Trung FERGUSON [facility] 10-09-2022 13:22-0500 Diastolic blood pressure 74 mm[Hg] Sam Cooney Work Phone: [facility] DO Work Phone: 10-09-2022 13:22-0500 Systolic blood pressure 136 mm[Hg] Sam Cooney Work Phone: [facility] DO Work Phone: 10-09-2022 13:05-0500 Body height 175.26 cm Sam Cooney Work Phone: [facility] DO Work Phone: 10-09-2022 13:05-0500 Body mass index (BMI) [Ratio] 26.58 kg/m2 Sam Cooney Work Phone: [facility] DO Work Phone: 10-09-2022 13:05-0500 Body surface area Derived from formula 1.98 m2 Sam Cooney Work Phone: [facility] DO Work Phone: 10-09-2022 13:05-0500 Body weight 81.65 kg Sam Cooney Work Phone: [facility] DO Work Phone: 10-09-2022 13:05-0500 Diastolic blood pressure 72 mm[Hg] Sam Cooney Work Phone: [facility] DO Work Phone: 10-09-2022 13:05-0500 Heart rate 84 /min [facility] Work Phone: [facility] DO Work Phone: 10-09-2022 13:05-0500 Systolic blood pressure 142 mm[Hg] [facility] Work Phone: [facility] DO Work Phone: 10-02-2022 15:48-0500 Body height 175.26 cm Sam Cooney Work Phone: [facility] DO Work Phone: 10-02-2022 15:48-0500 Body mass index (BMI) [Ratio] 26.43 kg/m2 [facility] Work Phone: [facility] DO Work Phone: 10-02-2022 15:48-0500 Body surface area Derived from formula 1.[address] [facility] Work Phone: [facility] DO Work Phone: 10-02-2022 15:48-0500 Body weight 81.19 kg Sam Cooney Work Phone: [facility] DO Work Phone: 10-02-2022 15:48-0500 Diastolic blood pressure 82 mm[Hg] [facility] Work Phone: [facility] DO Work Phone: 10-02-2022 15:48-0500 Heart rate 68 /min Sam Cooney Work Phone: [facility] DO Work Phone: 10-02-2022 15:48-0500 Systolic blood pressure 134 mm[Hg] [place] [facility] Work Phone: [facility] DO Work Phone: 10-02-2022 11:32-0500 Blood Pressure Location Trung FERGUSON [facility] 10-02-2022 11:32-0500 Diastolic blood pressure 75 mm[Hg] Trung FERGUSON [facility] 10-02-2022 11:32-0500 Heart rate 70 /min Trung FERGUSON [facility] 10-02-2022 11:32-0500 Respiratory rate 16 /min Trung FERGUSON [facility] 10-02-2022 11:32-0500 Systolic blood pressure 134 mm[Hg] Trung FERGUSON [facility] 09-11-2022 13:07-0500 Diastolic blood pressure 84 mm[Hg] [place] [facility] Work Phone: [facility] DO Work Phone: 09-11-2022 13:07-0500 Diastolic blood pressure 92 mm[Hg] [place] [facility] Work Phone: [facility] DO Work Phone: 09-11-2022 13:07-0500 Systolic blood pressure 144 mm[Hg] [place] [facility] Work Phone: [facility] DO Work Phone: 09-11-2022 13:07-0500 Systolic blood pressure 148 mm[Hg] Sam [facility] Work Phone: [facility] DO Work Phone: 09-11-2022 13:00-0500 Body height 175.[address] [facility] Work Phone: [facility] DO Work Phone: 09-11-2022 13:00-0500 Body mass index (BMI) [Ratio] 25.99 kg/m2 Sam [facility] Work Phone: [facility] DO Work Phone: 09-11-2022 13:00-0500 Body surface area Derived from formula 1.[address] [facility] Work Phone: [facility] DO Work Phone: 09-11-2022 13:00-0500 Body weight 79.[address] [facility] Work Phone: [facility] DO Work Phone: 09-11-2022 13:00-0500 Heart rate 62 /min Sam [facility] Work Phone: [facility] DO Work Phone: 08-28-2022 13:16-0500 Body height 175.[address] [facility] Work Phone: [facility] DO Work Phone: 08-28-2022 13:16-0500 Body mass index (BMI) [Ratio] 25.84 kg/m2 [place] [facility] Work Phone: [facility] DO Work Phone: 08-28-2022 13:16-0500 Body surface area Derived from formula 1.[address] [facility] Work Phone: [facility] DO Work Phone: 08-28-2022 13:16-0500 Body weight 79.38 kg aSm Cooney Work Phone: [facility] DO Work Phone: 08-28-2022 13:16-0500 Diastolic blood pressure 94 mm[Hg] Sam Cooney Work Phone: [facility] DO Work Phone: 08-28-2022 13:16-0500 Heart rate 88 /min Sam Cooney Work Phone: [facility] DO Work Phone: 08-28-2022 13:16-0500 Systolic blood pressure 152 mm[Hg] Sam Cooney Work Phone: [facility] DO Work Phone: 06-15-2022 10:12-0400 Body height 175.26 cm Sam Cooney Work Phone: [facility] DO Work Phone: 06-15-2022 10:12-0400 Body mass index (BMI) [Ratio] 24.81 kg/m2 Sam Cooney Work Phone: [facility] DO Work Phone: 06-15-2022 10:12-0400 Body surface area Derived from formula 1.92 m2 Sam Cooney Work Phone: [facility] DO Work Phone: 06-15-2022 10:12-0400 Body weight 76.2 kg Sam Cooney Work Phone: [facility] DO Work Phone: 06-15-2022 10:12-0400 Diastolic blood pressure 82 mm[Hg] Sam Cooney Work Phone: [facility] DO Work Phone: 06-15-2022 10:12-0400 Heart rate 64 /min [facility] Work Phone: [facility] DO Work Phone: 06-15-2022 10:12-0400 Systolic blood pressure 160 mm[Hg] [facility] Work Phone: [facility] DO Work Phone: 06-15-2022 10:12-0400 [address] Work Phone: [facility] DO Work Phone: Comment on above: PHQ-9 TS 04-24-2022 11:18-0400 Blood Pressure Location Trung FERGUSON [facility] 04-24-2022 11:18-0400 Diastolic blood pressure 86 mm[Hg] Trungemily FERGUSON [facility] 04-24-2022 11:18-0400 Heart rate 74 /min Trung FERGUSON [facility] 04-24-2022 11:18-0400 Respiratory rate 16 /min Trung FERGUSON [facility] 04-24-2022 11:18-0400 Systolic blood pressure 134 mm[Hg] Trung FERGUSON [facility] 01-23-2022 12:57-0400 Blood Pressure Location Trung FERGUSON [facility] 01-23-2022 12:57-0400 Diastolic blood pressure 87 mm[Hg] Trungemily FERGUSON [facility] 01-23-2022 12:57-0400 Heart rate 70 /min Trung FERGUSON [facility] 01-23-2022 12:57-0400 Respiratory rate 16 /min Trung FERGUSON [facility] 01-23-2022 12:57-0400 Systolic blood pressure 139 mm[Hg] Trung FERGUSON [facility] 08-31-2021 13:24-0500 Body height 175.26 cm [place] [facility] Work Phone: [facility] DO Work Phone: 08-31-2021 13:24-0500 Body mass index (BMI) [Ratio] 27.02 kg/m2 [place] [facility] [place] [facility] Work Phone: [facility] DO Work Phone: 08-31-2021 13:24-0500 Body surface area Derived from formula 1.99 m2 Sam Gideon Cooney Work Phone: [facility] DO Work Phone: 08-31-2021 13:24-0500 Body weight 83.01 kg Sam Cooney Work Phone: [facility] DO Work Phone: 08-31-2021 13:24-0500 Diastolic blood pressure 88 mm[Hg] Sam Cooney Work Phone: [facility] DO Work Phone: 08-31-2021 13:24-0500 Heart rate 74 /min [facility] Work Phone: [facility] DO Work Phone: 08-31-2021 13:24-0500 Systolic blood pressure 142 mm[Hg] Sam Cooney Work Phone: [facility] DO Work Phone: 08-03-2021 09:57-0500 Body height 175.26 cm Sam Cooney Work Phone: [facility] DO Work Phone: 08-03-2021 09:57-0500 Body mass index (BMI) [Ratio] 26.29 kg/m2 Sam Cooney Work Phone: [facility] DO Work Phone: 08-03-2021 09:57-0500 Body surface area Derived from formula 1.97 m2 Sam Cooney Work Phone: [facility] DO Work Phone: 08-03-2021 09:57-0500 Body weight 80.74 kg Sam Cooney Work Phone: [facility] DO Work Phone: 08-03-2021 09:57-0500 Diastolic blood pressure 90 mm[Hg] Sam Cooney Work Phone: [facility] DO Work Phone: 08-03-2021 09:57-0500 Heart rate 66 /min Sam Cooney Work Phone: [facility] DO Work Phone: 08-03-2021 09:57-0500 Systolic blood pressure 170 mm[Hg] Sam Cooney Work Phone: [facility] DO Work Phone: Encounters Encounter Date Encounter Type Care Provider Facility Start: 06-16-2024 ambulatory Trung Santosh Santizo ty:[facility] Start: 03-05-2024 End: 03-09-2024 Evaluation and management of inpatient DO Sam Cooney Work Phone: [facility] [place] [facility] Work Phone: Start: 03-05-2024 Admission to [facility] DO Sam Cooney Work Phone: [facility] [place] Work Phone: Start: 03-05-2024 ambulatory Mhd Casimiro Coleman cility:[facility] Start: 03-03-2024 ambulatory Sam Cooney Facility :[facility] Start: 03-03-2024 Registered Recurring DO Sam Cooney Work Phone: [facility] Work Phone: Start: 02-21-2024 End: 02-21-2024 ambulatory DO Sam Cooney Work Phone: [facility] Work Phone: Start: 02-21-2024 End: 02-21-2024 Patient encounter procedure DO Sam Cooney Work Phone: [facility] Work Phone: Start: 02-21-2024 Registered Recurring DO Sam Cooney Work Phone: [facility] Work Phone: Start: 02-11-2024 End: 02-11-2024 ambulatory GRACE VAZQUEZ Not Available Start: 01-15-2024 End: 01-15-2024 ambulatory ROXANNE Casie GIVENS [facility] Start: 12-28-2023 ambulatory SAM COONEY [facility] Start: 12-28-2023 End: 12-29-2023 ambulatory RYAN Ocampo [facility] Start: 12-28-2023 End: 12-28-2023 Subsequent hospital visit by physician Fatemeh [id number] [facility] Comment on above: Atrial fibrillation, unspecified type (CMS/HCC) Start: 12-03-2023 End: 12-04-2023 ambulatory Trung FERGUSON Facility:[facility] Start: 12-03-2023 End: 12-03-2023 Patient encounter procedure Trung FERGUSON [facility] Start: 11-20-2023 ambulatory GUNNAR Leonard cility:[id number] Start: 11-07-2023 End: 11-07-2023 ambulatory CAMILA ZEPEDA MD Facility:[id number] Start: 11-06-2023 Chart abstracting Kylee Arreguin DPM Work Phone: [facility] Start: 10-22-2023 End: 10-22-2023 ambulatory [place] [facility] Start: 10-22-2023 End: 10-22-2023 Encounter for preprocedural cardiovascular examination [facility] Start: 10-22-2023 End: 10-22-2023 Office outpatient visit 25 minutes Za Hernández MD Work Phone: [facility] Comment on above: Unspecified mood (af fective) disorder (CMS/HCC) (Primary Dx); Paroxysmal atrial fibrillation (CMS/HCC); Former smoker; Encounter for pre-operative cardiovascular clearance; Presence of Watchman left atrial appendage closure device; Paroxysmal atrial fibrillation with RVR (CMS/HCC); Mixed hyperlipidemia; Primary hypertension; Pain in joint of left shoulder Start: 10-22-2023 End: 10-22-2023 Patient encounter status Za Hernández MD Work Phone: [facility] Work Phone: Start: 09-10-2023 End: 09-10-2023 ambulatory DO Sam Cooney Work Phone: [facility] Work Phone: Start: 09-10-2023 End: 09-10-2023 Patient encounter procedure DO Sam Cooney Work Phone: [facility]-Pacemaker Check Start: 08-28-2023 End: 08-28-2023 Subsequent hospital visit by physician Ryan Cobb MD Work Phone: [facility] [place] Comment on above: Atrial fibrillation (CMS/HCC) (Primary Dx); Chronic atrial fibrillation, unspecified (CMS/HCC); Presence of Watchman left atrial appendage closure device Start: 08-24-2023 Evaluation and manag ement of inpatient [facility] Start: 08-22-2023 End: 08-22-2023 ambulatory [facility] Start: 08-22-2023 End: 08-22-2023 Office outpatient new 45 minutes Ryan Cobb MD Work Phone: [facility] Comment on above: Paroxysmal atrial fi brillation (CMS/HCC) (Primary Dx) Start: 08-13-2023 End: 08-13-2023 ambulatory KYLEE ARREGUIN Not Available Start: 08-09-2023 End: 08-09-2023 Patient encounter procedure DO Sam Cooney Work Phone: [facility]-Pacemaker Check Start: 08-09-2023 End: 08-09-2023 ambulatory DO Sam Cooney Work Phone: [facility] Work Phone: Start: 07-31-2023 End: 08-01-2023 ambulatory PURINMA DAVIDSON JR Facility:[facility] Start: 07-31-2023 Encounter for other preprocedural examination PURNIMA DAVIDSON JR [facility] Start: 07-31-2023 End: 08-01-2023 ambulatory SHERLEY CHAVEZ Not Available Start: 07-09-2023 End: 07-10-2023 ambulatory Trung FERGUSON Facility:[facility] Start: 07-09-2023 End: 07-09-2023 ambulatory Zacasie Hernández Facility:[facility] Start: 07-09-2023 End: 07-09-2023 Patient encounter procedure Trung Frost MARTY [facility] Start: 06-11-2023 Office outpatient vi sit 25 minutes Sam Cooney Work Phone: [facility] 250 DO Work Phone: Start: 06-11-2023 ambulatory ZA HERNÁNDEZ Facility:1 [id number] Start: 06-07-[address] Sam Cooney Facility:[id number] Start: 06-07-2023 End: 06-07-2023 Patient encounter procedure DO Sam Cooney Work Phone: [facility]-Pacemaker Check Start: 06-07-2023 End: 06-07-2023 ambulatory DO Sam Cooney Work Phone: [facility] Work Phone: Start: 05-08-[address] Sam Cooney Facility:[id number] Start: 05-07-2023 End: 05-07-2023 Patient encounter procedure DO Sam Cooney Work Phone: [facility]-Pacemaker Check Start: 05-07-2023 End: 05-07-[address] [facility] Work Phone: [facility] Work Phone: Start: 04-03-2023 End: 04-04-2023 ambulatory CHARLOTTE BAKER Facility:[facility] Start: 04-03-2023 End: 04-03-2023 Patient encounter procedure CHARLOTTE BAKER [facility] Start: 02-26-2023 ambulatory Ms. Loulou Arreguin Facility: Start: 02-26-2023 Office outpatient vi sit 25 minutes Sam Cooney Work Phone: [facility] 250 DO Work Phone: Start: 02-26-2023 Patient encounter procedure Sam Cooney Work Phone: [facility] 250 DO Work Phone: Start: 01-23-2023 End: 01-24-2023 ambulatory DO Sam Cooney Work Phone: [facility] Work Phone: Start: 01-23-2023 End: 01-23-2023 Patient encounter procedure CHARLOTTE BAKER [facility] Start: 01-22-2023 End: 01-22-2023 Patient encounter procedure DO Sam Cooney Work Phone: [facility]Pac[facility] Check Start: 01-22-2023 End: 01-22-2023 ambulatory DO Sam Cooney Work Phone: [facility] Work Phone: Start: 01-01-2023 End: 01-02-2023 ambulatory Trung FERGUSON Facility:[facility] Start: 01-01-2023 End: 01-01-2023 Patient encounter procedure Trung FERGUSON [facility] Start: 12-08-[address] Sam Cooney Facility:[id number] Start: 12-08-2022 End: 12-08-2022 ambulatory DO Sam Cooney Work Phone: [facility] Work Phone: Start: 12-08-2022 End: 12-08-2022 Patient encounter procedure DO Sam Cooney Work Phone: [facility]-Pacemaker Check Start: 11-17-2022 Patient encounter procedure Sam Cooney Work Phone: [facility] 250 DO Work Phone: Start: 11-06-2022 End: 11-06-2022 Patient encounter procedure Trung FERGUSON [facility] Start: 11-03-2022 End: 01-10-[address] SAM COONEY Facility: Start: 11-03-2022 End: 11-03-2022 Patient encounter procedure Trung FERGUSON [facility] Start: 10-17-2022 End: 10-17-2022 Lab Drop off CHARLOTTE BAKER [facility] Start: 10-17-2022 End: 10-17-2022 Patient encounter procedure CHARLOTTE BAKER [facility] Start: 10-09-2022 ambulatory Ms. Jasso Emy Arreguin Facility: Start: 10-09-2022 FUV, Provider: Loulou Myles, Status: Pen, Time: 12:30 PM Sam Cooney Work Phone: [facility] 250 DO Work Phone: Start: 10-09-2022 Office outpatient vi sit 15 minutes Sam Cooney Work Phone: [facility] 250 DO Work Phone: Start: 10-09-2022 Patient encounter procedure Sam Cooney Work Phone: [facility] 250 DO Work Phone: Start: 10-02-2022 ambulatory ZA HERNÁNDEZ Facility:1 [id number] Start: 10-02-2022 Office outpatient vi sit [address] [facility] Work Phone: [facility] 250 DO Work Phone: Start: 10-02-2022 End: 10-02-2022 Patient encounter procedure Trung FERGUSON [facility] Start: 09-19-2022 Rx Renewal Sam Meneses Brist ol Work Phone: [facility] 250 DO Work Phone: Start: 09-11-2022 Office outpatient vi sit [address] [facility] Work Phone: [facility] 250 DO Work Phone: Start: 09-11-2022 ambulatory ZA HERNÁNDEZ Facility:1 [id number] Start: 09-04-2022 End: 09-04-2022 Patient encounter procedure Trung FERGUSON [facility] Start: 09-02-2022 Encounter for preprocedural laboratory examination DR TRUNG FERGUSON . [facility] Start: 08-31-2022 End: 09-01-[address] TRUNG FERGUSON . Facility:H1 Start: 08-29-2022 End: 08-30-[address] TRUNG FERGUSON . Facility:H1 Start: 08-29-2022 End: 08-30-2022 Encounter for preprocedural laboratory examination DR TRUNG FERGUSON . Facility:H1 Start: 08-28-2022 Office outpatient vi sit 25 minutes [place] [facility] Work Phone: [facility] 250 DO Work Phone: Start: 08-25-2022 End: 08-26-[address] SAM COONEY Facility:H1 Start: 08-22-2022 End: 08-23-[address] TRUNG FERGUSON . Facility:H1 Start: 08-14-2022 Telephone encounter [facility]l [facility] Work Phone: Start: 07-20-[address] TRUNG FERGUSON . Fac ility:H1 Start: 07-14-2022 End: 07-15-[address] TRUNG FERGUSON . Facility:H1 Start: 06-30-2022 Encounter for preprocedural cardiovascular examination DR TRUNG FERGUSON . [facility] Start: 06-30-2022 Encounter for preprocedural laboratory examination DR TRUNG FERGUSON . [facility] Start: 06-30-2022 End: 07-01-[address] TRUNG FERGUSON . Facility:H1 Start: 06-28-2022 End: 06-29-[address] TRUNG FERGUSON . Facility:H1 Start: 06-28-2022 End: 06-29-2022 Encounter for preprocedural cardiovascular examination DR TRUNG FERGUSON . Facility:H1 Start: 06-15-2022 Office outpatient vi sit 15 minutes Sam Cooney [facility] DO Work Phone: Start: 06-15-2022 Patient encounter procedure Sam Cooney Work [facility]: [facility] DO Work Phone: Start: 04-24-2022 End: 05-10-2022 Pre-admission assessment Trung FERGUSON [facility] Start: 04-24-2022 End: 04-24-2022 Patient encounter procedure Trung FERGUSON [facility] Start: 04-12-2022 Telephone encounter Sam halltol Work Phone: [facility] 250 DO Work Phone: Start: 04-08-2022 End: 04-08-[address] CONCHITA ARREGUIN Facility:H1 Start: 02-17-2022 End: 04-05-[address] SAM COONEY Facility:H1 Start: 01-23-2022 End: 01-23-2022 Patient encounter procedure Trung FERGUSON [facility] Start: 08-31-2021 Office outpatient vi sit 15 minutes Sam Cooney Work Phone: [facility] 250 DO Work Phone: Start: 02-07-2021 End: 02-07-2021 Patient encounter procedure Sam Cooney Work Phone: -[facility] [place] Start: 01-07-2021 End: 01-07-2021 Patient encounter procedure Sam Cooney Work Phone: -Pacemaker Check Start: 10-13-2020 End: 10-14-2020 Patient encounter procedure ISRAR UL [facility] Start: 10-13-2020 End: 10-13-2020 Subsequent hospital visit by physician Sam Cooney [facility] Start: 10-08-2020 End: 10-08-2020 Patient encounter procedure Sam Cooney -Pacemaker Check Start: 2020 End: 2020 Patient encounter procedure Sam Cooney -Lab [facility] [place] Start: 09-15-2020 End: 09-15-2020 Patient encounter procedure Sam Cooney -CT [address] Start: 07-07-2020 End: 07-07-2020 Patient encounter procedure Sam Cooney -Pacemaker Check Start: 02-04-2020 End: 02-07-2020 Patient encounter procedure ISRAR UL [facility] Start: 02-04-2020 End: 02-06-2020 Subsequent hospital visit by physician v Ct [address] 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 Y Number of units to transfuse now? 2 Result Comment: PERF ORMED BY: [facility] [address] [place] [address] PATHOLOGIST COMPUTER MECHANIC OTTO HARLEY M.D. Start: 03-05-2024 Stool Occult Blood (AMY) DO Sam Eros Work Phone: Start: 03-05-2024 Plain chest X-ray DO Anna Cooney Work Phone: Start: 12-28-2023 CT WATCHMAN FULL CONTRAST RYAN COBB Start: 12-28-2023 Ct heart contrast ev al cardiac structure&morph Ryan Cobb MD Work Phone: Start: 10-22-2023 Lipid panel ZA VARGAS Start: 10-22-2023 Comprehensive metabo lic 2000 panel - Serum or Plasma ZA HERNÁNDEZ Start: 08-28-2023 Echo transthorc r-t 2d w/wo m-mode rec f-up/lmtd Lucas Pearce BUTTERMILK DRIER OPERATOR-SENIOR MARKET RESEARCH ANALYST Work Phone: Start: 08-28-2023 Ecg routine ecg w/le ast 12 lds trcg only w/o i&r Lucas Pearce BUTTERMILK DRIER OPERATOR-SENIOR MARKET RESEARCH ANALYST Work Phone: Start: 08-22-2023 Creatinine [Mass/vol ume] [...] 09-15-2020 CT head/brain wo con [facility] Start: 02-04-2020 Ct head/brain w/o co ntrast [...] EVAL AND TREAT LESTER CHIRRI Start: 12-22-2019 PRINT SHOP STENOGRAPHER EVAL AND TREAT GRAYSON L CHIRRI Start: [...] (2 - Td or Tdap) [facility] Start: 10-13-2024 End: 10-13-2024 Patient encounter procedure 10/13/2024 10:30 AM EST Office Visit [facility] [address] [place] [address] Za Hernández MD [address] [place] [address] [address] [place] [address] [facility] Start: 07-31-2024 Thyroid stimulating hormone measurement TSH Level [facility] Start: 04-21-2024 End: 04-21-2024 Patient encounter procedure 04/21/2024 10:30 AM EDT Office Visit [place] [id number] [facility] [address] [place] [address] Loulou Arreguin, BUTTERMILK DRIER OPERATOR-SENIOR MARKET RESEARCH ANALYST [facility] [facility] [address] [place] [address] [facility] Start: 03-15-2024 [facility] Start: 03-14-2024 [facility] Start: 03-13-2024 [facility] Start: 03-12-2024 [facility] Start: 03-11-2024 [facility] Start: 03-10-2024 [facility] Start: 03-09-2024 End: 03-09-2024 [facility] Start: 03-08-2024 [facility] Start: 03-07-2024 End: 03-07-2024 [facility] Start: 03-06-2024 End: 03-07-2024 [facility] Start: 03-05-2024 Referral to occupational therapist [facility] Start: 03-05-2024 Physical therapy procedure [facility] Start: 03-05-2024 Hospital admission [facility] Start: 03-05-2024 Referral to oncologist [facility] Start: 03-05-2024 End: 03-06-2024 [facility] Start: 03-03-2024 [facility] Start: 11-20-2023 End: 11-20-2023 Patient encounter procedure 11/20/2023 7:00 AM EST Procedure Visit [place] [address] [facility] [address] [place] [address] [facility] Start: 11-06-2023 End: 11-06-2023 Patient encounter procedure 11/06/2023 11:30 AM EST Procedure Visit [facility] [address] [place] [id number] Kylee Arreguin DPM [address] [place] [address] [facility] Start: 10-22-2023 End: 10-22-2024 Comprehensive metabolic 2000 panel - Serum or Plasma Comprehensive Metabolic Panel Lab Routine Paroxysmal atrial fibrillation (CMS/HCC) Expected: 10/22/2023 (Approximate), Expires: 10/22/2024 [facility] Service Area Work Phone: Comment on above: Expected: 10/22/2023 (Approximate), Expires: 10/22/2024 Start: 10-22-2023 End: 10-22-2024 Lipid 1996 panel - Serum or Plasma Lipid Panel Lab Routine Paroxysmal atrial fibrillation (CMS/HCC) Unspecified mood (affective) disorder (CMS/HCC) Former smoker Encounter for pre-operative cardiovascular clearance Mixed hyperlipidemia Expected: 10/22/2023 (Approximate), Expires: 10/22/2024 [facility] Work Phone: Comment on above: Expected: 10/22/2023 (Approximate), Expires: 10/22/2024 Start: 09-20-2023 End: 09-20-2023 Patient encounter procedure 09/20/2023 10:30 AM EST Office Visit [facility] [address] [facility] [address] [place] [address] Za Hernández MD [address] [place] [address] [address] [place] [address] [facility] Start: 08-28-2023 End: 08-28-2023 Admission to same day surgery center 08/28/2023 11:30 AM EST - 08/28/2023 1:30 PM EST Surgery [facility] [address] [phone] [place] [address] [place] [address] Left Atrial Appendage Closure [50324 (CPT )] [facility] Comment on above: Left Atrial Appendag e Closure [58832 (CPT )] Start: 08-28-2023 Subsequent hospital visit by physician 08/28/2023 11:30 AM EST Hospital Encounter [facility] [address] [phone] [place] [address] [place] [address] Atrial fibrillation (CMS/HCC) [facility] Comment on above: Atrial fibrillation (CMS/HCC) Start: 08-27-2023 End: 08-27-2023 Patient encounter procedure 08/27/2023 9:30 AM EST Office Visit [facility] [address] [facility] [address] [place] [address] Za Hernández MD [address] [place] [address] [address] [place] [address] [facility] Start: 06-11-2023 FUV, Provider: Za Hernández, Status: Pen, Time: 10:45 AM FUV, Provider: Za Hernández, Status: Pen, Time: 10:45 AM [place] [address] DO Work Phone: Start: 05-25-2023 COVID-19 Vaccine ( season) COVID-19 Vaccine ( season) [facility] Start: 05-25-2023 Influenza vaccination Influenza Vacc ine (#1) [facility] Start: 02-26-2023 FUV, Provider: Za Hernández, Status: Pen, Time: 11:15 AM FUV, Provider: Za Hernández, Status: Pen, Time: 11:15 AM -[facility] 250 DO Work Phone: Start: 10-09-2022 FUV, Provider: Loulou Myles, Status: Pen, Time: 12:30 PM FUV, Provider: Loulou Myles, Status: Pen, Time: 12:30 PM -[facility] 250 DO Work Phone: Start: 10-02-2022 FUV, Provider: Za Hernández, Status: Pen, Time: 3:15 PM FUV, Provider: Za Hernández, Status: Pen, Time: 3:15 PM -[facility] 250 DO Work Phone: Start: 09-21-2022 FUV, Provider: Za Hernández, Status: Pen, Time: 9:45 AM FUV, Provider: Za Hernández, Status: Pen, Time: 9:45 AM [facility] 250 DO Work Phone: Start: 09-11-2022 NURSEVST, Provider: JACQUELINE GONZALEZ MACHINE OPERATOR SLITTER TECHNICIAN 1,[id number], Status: Pen, Time: 1:00 PM NURSEVST, Provider: JACQUELINE GONZALEZ MACHINE OPERATOR SLITTER TECHNICIAN 1,[id number], Status: Pen, Time: 1:00 PM [facility] 250 DO Work Phone: Start: 08-28-2022 FUV, Provider: Za Hernández, Status: Pen, Time: 12:45 PM FUV, Provider: Za Hernández, Status: Pen, Time: 12:45 PM [facility] 250 DO Work Phone: Start: 08-10-2022 BPCHECK, Provider: Lashon GONZALEZ MACHINE OPERATOR SLITTER TECHNICIAN 1,[id number], Status: Pen, Time: 10:00 AM BPCHECK, Provider: JACQUELINE VALLEJOY03 MACHINE OPERATOR SLITTER TECHNICIAN 1,[id number], Status: Pen, Time: 10:00 AM [facility] 250 DO Work Phone: Start: 08-01-2022 FUV, Provider: Erick Wise, Status: Pen, Time: 9:00 AM FUV, Provider: Erick Wise, Status: Pen, Time: 9:00 AM [facility] 250 DO Work Phone: Start: 06-15-2022 FUV, Provider: Za Hernández, Status: Pen, Time: 9:45 AM FUV, Provider: Za Hernández, Status: Pen, Time: 9:45 AM [facility] 250 DO Work Phone: Start: 10-03-2021 FUV, Provider: Loulou Myles, Status: Pen, Time: 10:00 AM FUV, Provider: Loulou Myles, Status: Pen, Time: 10:00 AM [facility] 250 DO Work Phone: Start: 10-03-2021 STRESS NUC, Provider : [place] HHVI NUCLEAR 01,[id number], Status: Pen, Time: 8:00 AM STRESS NUC, Provider: [place] HHVI NUCLEAR 01,[id number], Status: Pen, Time: 8:00 AM [facility] 250 DO Work Phone: Start: 04-13-2021 End: 04-13-2021 Virtual Visit 04/13/2021 Virtual Visit Neurology Shalom Shelton MD [address] [id number] [facility] Start: 01-24-2021 COVID-19 Vaccine (2 - Booster for Christina series) COVID-19 Vaccine (2 - Booster for Christina series) [facility] Start: 12-20-2020 Creatinine measurement Creatinine mo nitoring [facility] [place] [place] Start: 12-20-2020 HbA1c (Bld) [Mass fraction] A1C test (Diabetic or Prediabetic) [place], [place] Start: 12-20-2020 Lipid panel Lipid screen [place], [place] Start: 12-20-2020 Potassium monitoring Potassium monit oring [place], [place] Start: 08-11-2020 End: 08-11-2020 Office Visit 08/11/2020 Office Visit Neurology Ul Shalom Graham MD [address] [id number] [facility] Start: 05-25-2020 Influenza vaccination [place], [place] Start: 12-22-2019 Annual Wellness Visi t (AWV) Annual Wellness Visit (AWV) [place], [place] Start: 12-02-2014 Zoster Vaccines (2 o f 3) Zoster Vaccines (2 of 3) [facility] Start: 2012 Abdominal aortic aneurysm screening Abdominal Aortic Aneurysm (AAA) Screening [facility] Start: 2012 Pneumococcal 65+ yea rs Vaccine (1 of 1 - PPSV23) Pneumococcal 65+ years Vaccine (1 of 1 - PPSV23) [place], [place] Start: 1997 Screening for malign ant neoplasm of colon Colon cancer screen colonoscopy [place], [place] Start: 1997 Shingles Vaccine (1 of 2) Shingles Vaccine (1 of 2) [place], [place] Start: 1969 DTaP/Tdap/Td Vaccine s (1 - Tdap) DTaP/Tdap/Td Vaccines (1 - Tdap) [facility] Start: 1966 DTaP/Tdap/Td vaccine (1 - Tdap) DTaP/Tdap/Td vaccine (1 - Tdap) [place], [place] Start: 1965 Diabetes mellitus screening Diabetes Screening [facility] Start: 1965 Hepatitis C screening Hepatitis C [facility] Start: 1947 Abdominal aortic aneurysm screening AAA screen [place], [place] Start: 1947 Hepatitis C screening Hepatitis C [place], [place] Start: 1947 Lipid panel Lipid Panel [facility] Start: 1947 Medicare Annual Wellness Visit Medicare Annual Wellness Visit (AWV) [facility] Start: 1947 Screening for malign ant neoplasm of colon [facility] Angiotensin converti ng enzyme [Enzymatic activity/volume] in Serum or Plasma [facility] End: 08-28-2023 Basic metabolic 2000 panel - Serum or Plasma Basic metabolic panel Lab STAT STAT (Lab) for 1 Occurrences starting 08/28/2023 until 08/28/2023 [facility] Service Area Work Phone: Comment on above: STAT (Lab) for 1 Occ urrences starting 08/28/2023 until 08/28/2023 End: 08-31-2023 Basic metabolic 2000 panel - Serum or Plasma Basic Metabolic Panel Lab Routine Morning draw (Lab) for 3 Occurrences starting 08/29/2023 until 08/31/2023 [facility] Work Phone: Comment on above: Morning draw (Lab) f or 3 Occurrences starting 08/29/2023 until 08/31/2023 End: 08-28-2023 CBC W Auto Differential panel - Blood CBC and Auto Differential Lab STAT STAT (Lab) for 1 Occurrences starting 08/28/2023 until 08/28/2023 [facility] Work Phone: Comment on above: STAT (Lab) for 1 Occ urrences starting 08/28/2023 until 08/28/2023 End: 08-31-2023 CBC W Auto Differential panel - Blood CBC and Auto Differential Lab Routine Morning draw (Lab) for 3 Occurrences starting 08/29/2023 until 08/31/2023 [facility] Work Phone: Comment on above: Morning draw (Lab) f or 3 Occurrences starting 08/29/2023 until 08/31/2023 Comprehensive metabo lic 1999 panel - Serum or Plasma [facility] Comprehensive metabo lic 1999 panel - Serum or Plasma [facility] Comprehensive metabo lic 1999 panel - Serum or Plasma [facility] Copper measurement [facility] End: 08-28-2023 ECG 12 lead [facility] Work Phone: Comment on above: Once for 1 Occurrenc es starting 08/28/2023 until 08/28/2023 As needed until disc ontinued starting 08/28/2023 End: 08-30-2023 ECG 12 lead daily ECG 12 lead daily ECG Routine Daily for 3 Days starting 08/28/2023 until 08/30/2023, 1 completed [facility] Work Phone: Comment on above: Daily for 3 Days sta rting 08/28/2023 until 08/30/2023, 1 completed End: 08-31-2023 Glucose [Mass/volume] in Serum or Plasma POCT glucose Point of Care Testing - Docked Device Routine 4 times daily before meals and at bedtime for 3 Days starting 08/28/2023 until 08/31/2023 [facility] Work Phone: Comment on above: 4 times daily before meals and at bedtime for 3 Days starting 08/28/2023 until 08/31/2023 Hematocrit [Volume Fraction] of Blood [facility] Hemoglobin [Mass/volume] in Blood [facility] Hepatitis B core antibody measurement [facility] Hepatitis B virus surface Ab [Presence] in Serum [facility] End: 08-28-2023 Incentive spirometry Instruct Incentive spirometry Instruct Respiratory Care Routine Once for 1 Occurrences starting 08/28/2023 until 08/28/2023 [facility] [place] [facility] Work Phone: Comment on above: Once for 1 Occurrenc es starting 08/28/2023 until 08/28/2023 End: 08-28-2023 Magnesium [Mass/volume] in Serum or Plasma Magnesium Lab STAT STAT (Lab) for 1 Occurrences starting 08/28/2023 until 08/28/2023 [facility] [place] [facility] Work Phone: Comment on above: STAT (Lab) for 1 Occ urrences starting 08/28/2023 until 08/28/2023 End: 08-31-2023 Magnesium [Mass/volume] in Serum or Plasma Magnesium Lab Routine Morning draw (Lab) for 3 Occurrences starting 08/29/2023 until 08/31/2023 [facility] [place] [facility] Work Phone: Comment on above: Morning draw (Lab) f or 3 Occurrences starting 08/29/2023 until 08/31/2023 Patient referral [facility] Work Phone: End: 08-28-2023 Prothrombin time (PT) Protime-INR Lab STAT STAT (Lab) for 1 Occurrences starting 08/28/2023 until 08/28/2023 [facility] [place] [facility] Work Phone: Comment on above: STAT (Lab) for 1 Occ urrences starting 08/28/2023 until 08/28/2023 End: 08-31-2023 Prothrombin time (PT) Protime-INR Lab Routine Morning draw (Lab) for 3 Occurrences starting 08/29/2023 until 08/31/2023 [facility] [place] [facility] Work Phone: Comment on above: Morning draw (Lab) f or 3 Occurrences starting 08/29/2023 until 08/31/2023 Rheumatoid factor [Units/volume] in Serum or Plasma [facility] End: 08-28-2023 Structural heart procedure Structural heart procedure Cardiac Cath Routine Atrial fibrillation (CMS/HCC) Once for 1 Occurrences starting 08/28/2023 until 08/28/2023 [facility] Service Area Work Phone: Comment on above: Once for 1 Occurrenc es starting 08/28/2023 until 08/28/2023 Structural heart procedure Structural heart procedure Cardiac Cath Routine Atrial fibrillation (CMS/HCC) 08/28/2023 12:31 PM [facility] Work Phone: End: 08-28-2023 Heart Transthoracic [facility] Work Phone: Comment on above: Once for 1 Occurrenc es starting 08/28/2023 until 08/28/2023 [facility] [place] Immunizations Immunization Date Immunization Notes Care Provider Fa cility 10-09-2022 Fluzone High-Dose Quadrivalent 0.7 ML Intramuscular Suspension Prefilled Syringe Sam Cooney Work Phone: -[facility] 250 DO Work Phone: 10-09-2022 influenza virus vacc ine, unspecified formulation Trung FERGUSON [facility] 10-09-2021 Fluzone High-Dose Quadrivalent 0.7 ML Intramuscular Suspension Prefilled Syringe [facility] Work Phone: [facility] 250 DO Work Phone: 10-09-2021 influenza virus vacc ine, unspecified formulation Tr[employer] [facility] 11-29-2020 Christina COVID-19 Vac cine 0.5 ML Intramuscular Suspension [facility] Work Phone: [facility] 09-06-2019 influenza virus vacc ine, unspecified formulation [employer] [facility] 09-06-2019 influenza, high dose seasonal, preservative-free [facility]: 06-24-2019 influenza virus vacc ine, unspecified formulation [employer] [facility] 06-24-2019 influenza, high dose seasonal, preservative-free [facility] Work Phone: 08-04-2018 influenza virus vacc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 Hypothyroid Hypertension Surgical History Hx of tonsillectomy History of right shoulder replacement Family History Father Pneumonia Father Pneumonia 89 yrs Mother Congestive heart failure 93 yrs Social History Smoking Status: Never smoker Substance Use Type: None Allergies No Known Allergies Allergy (Verified 02/21/24 14:51) Home Medications losartan 100 mg tablet 100 mg PO QAM htn 05/19/19 [History Confirmed 03/05/24] aspirin 81 mg chewable tablet 81 mg PO QPM tia 02/27/20 [History Confirmed 03/05/24] finasteride 5 mg tablet 5 mg PO QHS prostate 02/27/20 [History Confirmed 03/05/24] thyroid (pork) 90 mg tablet (Stanford Thyroid) 90 mg PO QAM thyroid 02/27/20 [History Confirmed 04/07/20] tamsulosin 0.4 mg capsule 0.4 mg PO BID 04/07/20 [History Confirmed 04/07/20] cyanocobalamin (vitamin B-12) 1,000 mcg capsule 1,000 mcg PO DAILY 02/21/24 [History Confirmed 03/05/24] doxazosin 4 mg tablet 4 mg PO DAILY 02/21/24 [History Confirmed 03/05/24] fluoxetine 40 mg capsule 40 mg PO DAILY 02/21/24 [History Confirmed 03/05/24] folic acid 1 mg tablet 1 mg PO DAILY 02/21/24 [History Confirmed 03/05/24] memantine 10 mg tablet 10 mg PO BID 02/21/24 [History Confirmed 03/05/24] metoprolol succinate 25 mg tablet,extended release 24 hr 25 mg PO DAILY 02/21/24[History Confirmed 03/05/24] quetiapine 25 mg tablet (Seroquel) 25 mg PO BID 02/21/24 [History Confirmed 03/05/24] spironolactone 25 mg tablet 25 mg PO DAILY 02/21/24 [History Confirmed 02/21/24] tolterodine 2 mg capsule,extended release 24 hr 2 mg PO DAILY 02/21/24 [History Confirmed 03/05/24] acetaminophen 500 mg capsule 500 mg PO BID pain 03/05/24 [History Confirmed 03/05/24] ondansetron HCl 4 mg tablet 4 mg PO .Q8 PRN nausea and vomiting 03/05/24 [History Confirmed 03/05/24] Exam Physical Exam Vital Signs: Temp Pulse Resp BP Pulse Ox O2 Del Method 98.1 F 81 18 122/56 L 92 L Room Air 03/05/24 11:53 03/05/24 16:06 03/05/24 16:06 03/05/24 16:03/05/24 16:03/05/24 12:51 Narrative: ECOG performance status is 2 currently due to confusion and is not able to ambulate due to her vertebral fracture and weakness of the lower extremities andmultiple falls. HEENT normocephalic atraumatic pupils are equal and round Neck supple without thyromegaly or any cervical lymphadenopathy. 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 LABS 03/05/24 14:29: Blood Type Recheck A Positive 03/05/24 14:00: Blood Type A Positive, Antibody Screen Negative, Crossmatch (AHG) See Detail 03/05/24 11:49: Corrected WBC 1.6 L, Uncorrected WBC Count 1.6 L, RBC 1.93 L, Hgb 6.9 L, Hct 20.1 L, MCV 104.2 H, MCH 35.9 H, MCHC 34.4, RDW 19.4 H, Plt Count67 L, MPV 7.6, Neut % (Auto) N/A, Lymph % (Auto) N/A, Daniels % (Auto) N/A, Eos % (Auto) N/A, Baso % (Auto) N/A, Nucleat RBC Rel Count N/A, Neut # (Auto) N/A, Lymph # (Auto) N/A, Daniels # (Auto) N/A, Eos # (Auto) N/A, Baso # (Auto) N/A, BandNeutrophils % 5, Lymphocytes % 54 H, Monocytes % 0 L, Eosinophils % 10 H, Basophils % 0, Segmented Neutrophils 31 L, Monocyte Dist Width , Platelet Estimate Decreased, Plt Morphology Comment Normal, RBC Morphology N/A, Anisocytosis Moderate, Macrocytosis Slight, PT 15.0 H, INR 1.3, APTT 29.7, PHA Creatinine Clear 28.70, Sodium 139, Potassium 4.2, Chloride 103, Carbon Dioxide 24.0, Anion Gap 16.2 H, BUN 42 H, Creatinine 2.19 H, Est GFR (CKD-EPI) 30.449, Glucose 113 H, Calcium 9.9, Total Creatine Kinase 60, Troponin I High Sens 22.3 H, B-Natriuretic Peptide 108.0 H Assessment & Plan (1) Multiple myeloma: Code(s): C90.00 - Multiple myeloma not having achieved remission (2) Anemia: Code(s): D64.9 - Anemia, unspecified (3) Pancytopenia: Code(s): D61.818 - Other pancytopenia (4) Acute hypotension: Code(s): I95.9 - Hypotension, unspecified (5) Thrombocytopenia: Code(s): D69.6 - Thrombocytopenia, unspecified (6) Hypercalcemia: Code(s): E83.52 - Hypercalcemia (7) Acute renal insufficiency: Code(s): N28.9 - Disorder of kidney and ureter, unspecified Plan (1) Acute anemia on chronic Pancytopenia (2) Hypotension and confusion (3) Leukopenia, neutropenia without reported fever yet: (4) Acute renal insufficiency (5) Multiple Myeloma, with M spike 3.7, anemia, renal failure hypercalcemia and also K/L ratio over 100. (6) Thrombocytopenia: Plan Will do bone marrow biopsy at bedside tomorrow at 8 am. Please transfuse 2 units of PRBCs. IV fluid for hypotension as needed. Hodgson- Culture if fever. Follow ABCD and CMP. Please obtain diff with each CBC. I talked to his Kandi and daughter Duncan about the bone marrow biopsy and they gave me the verbal consent for that over the phone. I also talked to them about chemo but since he was refusing last week, they want to talk to him and his son before making decision about that. Will follow with you. Thanks. Treatment Plan Zoledronic Acid 4mg Q6M Clinical Indication No Indication Cycle Number Last Admin 1 of 1 Cycle Day Next Admin 3 No Active Chemotherapy Documented By: Bertha Cuevas MD 03/05/24 1618 Signed By: <Electronically signed by Bertha Cuevas MD> 03/05/24 1649 [facility] Work Phone: 1(153) 271-980806-12-2024 History and physical note Author Roslyn Townsend [facility] March 05, 2024 4:12pm Note Date/Time March 05, 2024 3:45 pm [facility] [address] [place] [address] Hospitalist H&P Signed Patient: Neil Wilcox MR#: [id number] 0543 : 1945 Acct:[id number] Age/Sex: 78 / M Adm Date: 4 Loc: ER Room: Type: [facility] ER Attending Dr: Copies to: Trung Armenta, DO Sam Cooney,DO Roslyn Townsend DO~ [facility] DATE OF EXAMINATION: 03/05/24 CHIEF COMPLAINT: Hypotension HISTORY OF PRESENT ILLNESS: Mr. Wilcox is a 78M recently diagnosed with multiple myeloma with a PMHx of pancytopenia and renal insufficiency who was in a CAT scan at [facility] getting a bone marrow biopsy when he suddenly became dizzy, lightheaded and confused. His blood pressure was found to be in the 70s. He was taken to the ED where he was given 2 liters of normal saline which brought his pressure up to 110/60. Initial labwork reveals WBC 1.6, hemoglobin 6.9 which is down from just this morning at 8.1. 2 units PRBCs given in the ED. BUN/creatine is 42/2.19. INR is 1.3 and platelet count is 67. NIH scale 0. When I interviewed the patient, he is only oriented to self and does not remember this episode. He admits to lightheadedness and continues to deny chest pain, palpitations, SOB, back pain, abdominal pain, nausea, diarrhea, headache, cough, congestion, fever, chills. According to , he has not had any infectious symptoms or dehydration symptoms. He does have a Watchman device and has never had a stroke. He is taking blood pressure medication but he has been taking it as directed and the dose has not been titrated recently. Pt is admitted to the floor for hypotension and anemia. DVT PPx Diet: regular diet CODE STATUS: full code Dispo: Review of Systems Review of Systems All other systems reviewed & are negative unless noted below or in HPI [facility] Medical History (Updated 03/05/24 @ 14:13 by Kim Treviño) Hypercalcemia Thrombocytopenia Elevated total protein Acute renal insufficiency Chronic ITP (idiopathic thrombocytopenia) Leukopenia Anemia Pancytopenia Presence of Watchman left atrial appendage closure device device placed 2022 Arthritis BPH (benign prostatic hyperplasia) TIA (transient ischemic attack) Hyperlipidemia Hiatal hernia Neck problem Hypothyroid Hypertension Surgical History Hx of tonsillectomy History of right shoulder replacement Family History Father Pneumonia Father Pneumonia 89 yrs Mother Congestive heart failure 93 yrs Social History Smoking Status: Never smoker Substance Use Type: None Meds Medications and Allergies Allergies No Known Allergies Allergy (Verified 02/21/24 14:51) Home Medications losartan 100 mg tablet 100 mg PO QAM htn 05/19/19 [History Confirmed 03/05/24] aspirin 81 mg chewable tablet 81 mg PO QPM tia 02/27/20 [History Confirmed 03/05/24] finasteride 5 mg tablet 5 mg PO QHS prostate 02/27/20 [History Confirmed 03/05/24] thyroid (pork) 90 mg tablet (Stanford Thyroid) 90 mg PO QAM thyroid 02/27/20 [History Confirmed 04/07/20] tamsulosin 0.4 mg capsule 0.4 mg PO BID 04/07/20 [History Confirmed 04/07/20] cyanocobalamin (vitamin B-12) 1,000 mcg capsule 1,000 mcg PO DAILY 02/21/24 [History Confirmed 03/05/24] doxazosin 4 mg tablet 4 mg PO DAILY 02/21/24 [History Confirmed 03/05/24] fluoxetine 40 mg capsule 40 mg PO DAILY 02/21/24 [History Confirmed 03/05/24] folic acid 1 mg tablet 1 mg PO DAILY 02/21/24 [History Confirmed 03/05/24] memantine 10 mg tablet 10 mg PO BID 02/21/24 [History Confirmed 03/05/24] metoprolol succinate 25 mg tablet,extended release 24 hr 25 mg PO DAILY 02/21/24[History Confirmed 03/05/24] quetiapine 25 mg tablet (Seroquel) 25 mg PO BID 02/21/24 [History Confirmed 03/05/24] spironolactone 25 mg tablet 25 mg PO DAILY 02/21/24 [History Confirmed 02/21/24] tolterodine 2 mg capsule,extended release 24 hr 2 mg PO DAILY 02/21/24 [History Confirmed 03/05/24] acetaminophen 500 mg capsule 500 mg PO BID pain 03/05/24 [History Confirmed 03/05/24] ondansetron HCl 4 mg tablet 4 mg PO .Q8 PRN nausea and vomiting 03/05/24 [History Confirmed 03/05/24] Exam Physical Exam Vital Signs: Temp Pulse Resp BP Pulse Ox O2 Del Method 98.1 F 72 16 110/60 98 Room Air 03/05/24 11:53 03/05/24 12:51 03/05/24 12:51 03/05/24 12:51 03/05/24 12:51 03/05/24 12:51 Narrative: GENERAL: patient is slow to respond and oriented to self only HEENT: NC/AT, conjunctiva clear CARDIOVASCULAR: Regular rate and rhythm, no murmurs gallops or rubs RESPIRATORY: nonlabored work of breathing on room air, clear to auscultation bilaterally, symmetric chest rise ABDOMEN: Soft, non-tender, non-distended, normal bowel sounds EXTREMITIES: No cyanosis, no clubbing, no edema SKIN: Intact, no rash, no trauma NEURO: Cranial nerves grossly intact, no focal neurologic signs Results - Hospitalist H&P Lab Results Labs: Laboratory Last Values Corrected WBC 1.6 X10E3/uL (4.1-10.5) L 03/05/24 11:49 Uncorrected WBC Count 1.6 x10E3/uL (4.1-10.5) L 03/05/24 11:49 RBC 1.93 X10E6/uL (3.90-5.60) L 03/05/24 11:49 Hgb 6.9 g/dL (13.0-17.0) L 03/05/24 11:49 Hct 20.1 % (38.8-50.0) L 03/05/24 11:49 MCV 104.2 fl (83.5-101) H 03/05/24 11:49 MCH 35.9 pg (27.5-35.2) H 03/05/24 11:49 MCHC 34.4 g/dL (32.5-35.6) 03/05/24 11:49 RDW 19.4 % (12.0-14.8) H 03/05/24 11:49 Plt Count 67 x10E3/uL (150-450) L 03/05/24 11:49 MPV 7.6 fl (6.6-10.1) 03/05/24 11:49 Neut % (Auto) N/A 03/05/24 11:49 Lymph % (Auto) N/A 03/05/24 11:49 Daniels % (Auto) N/A 03/05/24 11:49 Eos % (Auto) N/A 03/05/24 11:49 Baso % (Auto) N/A 03/05/24 11:49 Nucleat RBC Rel Count N/A 03/05/24 11:49 Neut # (Auto) N/A 03/05/24 11:49 Lymph # (Auto) N/A 03/05/24 11:49 Daniels # (Auto) N/A 03/05/24 11:49 Eos # (Auto) N/A 03/05/24 11:49 Baso # (Auto) N/A 03/05/24 11:49 Band Neutrophils % 5 % (0-5) 03/05/24 11:49 Lymphocytes % 54 % (18-42) H 03/05/24 11:49 Monocytes % 0 % (2-11) L 03/05/24 11:49 Eosinophils % 10 % (1-3) H 03/05/24 11:49 Basophils % 0 % (0-2) 03/05/24 11:49 Segmented Neutrophils 31 % (50-70) L 03/05/24 11:49 Monocyte Dist Width % (0.00-20.00) 03/05/24 11:49 Platelet Estimate Decreased (Normal) 03/05/24 11:49 Plt Morphology Comment Normal (Normal) 03/05/24 11:49 RBC Morphology N/A 03/05/24 11:49 Anisocytosis Moderate 03/05/24 11:49 Macrocytosis Slight 03/05/24 11:49 PT 15.0 Seconds (9.0-12.9) H 03/05/24 11:49 INR 1.3 03/05/24 11:49 APTT 29.7 Seconds (25.1-36.5) 03/05/24 11:49 PHA Creatinine Clear 28.70 03/05/24 11:49 Sodium 139 mmol/L (136-145) 03/05/24 11:49 Potassium 4.2 mmol/L (3.5-5.1) 03/05/24 11:49 Chloride 103 mmol/L (98-107) 03/05/24 11:49 Carbon Dioxide 24.0 mmol/L (21.0-31.0) 03/05/24 11:49 Anion Gap 16.2 mEq/L (6.0-15.0) H 03/05/24 11:49 BUN 42 mg/dL (7-25) H 03/05/24 11:49 Creatinine 2.19 mg/dL (0.70-1.30) H 03/05/24 11:49 Est GFR (CKD-EPI) 30.449 mL/Min 03/05/24 11:49 Glucose 113 mg/dL (70-100) H 03/05/24 11:49 Calcium 9.9 mg/dL (8.6-10.3) 03/05/24 11:49 Total Creatine Kinase 60 U/L (30-223) 03/05/24 11:49 Troponin I High Sens 22.3 pg/mL (0.0-20.0) H 03/05/24 11:49 B-Natriuretic Peptide 108.0 pg/mL (5-100) H 03/05/24 11:49 Crossmatch (AHG) See Detail 03/05/24 14:00 Microbiology Results Micro: Microbiology - Results from entire visit 03/05/24 12:53 Stool Stool Occult Blood (AMY) - Final Assessment & Plan Assessment/Plan (1) Multiple myeloma: (2) Pancytopenia: (3) Anemia: (4) Acute hypotension: Plan Acute Hypotension Anemia - monitor BP and continue to give fluids - monitor H&H. Transfuse to keep Hgb over 7. - will trend BMP and CBC Multiple Myeloma Pancytopenia - will consult oncology BRADLY Still Attending attestation: Patient is a 78-year-old male with concern for multiple myeloma who was getting a bone marrow biopsy this morning when it was noted that his blood pressure was in the 70s over 40s. He was sent to the emergency room. Patient is only oriented x 1-2. He is confused and lethargic. His blood pressure improved withIV fluid in the ED. His hemoglobin was noted to be 6.9. There is no signs of bleeding however he has significant drop that is concerning for other etiology besides possible multiple myeloma. Patient was seen and examined. Agree with exam as detailed in note above. Lab findings reviewed. Assessment and plan - Discussed patient with oncologist. Plan for more panel biopsy at bedside by oncologist tomorrow morning. Will obtain a skeletal survey to look for lesions -Hold antihypertensive medication given hypotension. Monitor blood pressure. - IV hydration -Trend CBC and BMP -Agree with transfusion ordered by ER, currently ordered for 2 units packed RBC. Discussed with oncologist regarding this also. -Monitor for any signs of bleeding -IV PPI -Check stool for blood DVT prophylaxis-will use SCDs for now Regular diet IP vs OBS Justification Based on differential dx, clinical care plan, and risk of adverse events, if untreated, in my clinical judgement this patient requires an acute care setting as: INPATIENT because of an expectation of an over 2 midnight stay. Estimated length of stay (# of days): 4 Documented By: Roslyn Townsend DO 03/05/24 1459 Signed By: <Electronically signed by Roslyn Townsend DO> 03/05/24 8063 [facility] Work Phone: 1(769) 724-113506-12-2024 History and physical note Author Roslyn Townsend [facility] March 05, 2024 4:12pm Note Date/Time March 05, 2024 3:45 pm [facility] [address] [place] [address] Hospitalist H&P Signed Patient: Neil Wilcox MR#: [id number] 0543 : 1945 Acct:[id number] Age/Sex: 78 / M Adm Date: 4 Loc: ER Room: Type: [facility] ER Attending Dr: Copies to: Trung Armenta, DO Sam Cooney,DO Roslyn Townsend DO~ HPI DATE OF EXAMINATION: 03/05/24 CHIEF COMPLAINT: Hypotension HISTORY OF PRESENT ILLNESS: Mr. Wilcox is a 78M recently diagnosed with multiple myeloma with a PMHx of pancytopenia and renal insufficiency who was in a CAT scan at [facility] getting a bone marrow biopsy when he suddenly became dizzy, lightheaded and confused. His blood pressure was found to be in the 70s. He was taken to the ED where he was given 2 liters of normal saline which brought his pressure up to 110/60. Initial labwork reveals WBC 1.6, hemoglobin 6.9 which is down from just this morning at 8.1. 2 units PRBCs given in the ED. BUN/creatine is 42/2.19. INR is 1.3 and platelet count is 67. NIH scale 0. When I interviewed the patient, he is only oriented to self and does not remember this episode. He admits to lightheadedness and continues to deny chest pain, palpitations, SOB, back pain, abdominal pain, nausea, diarrhea, headache, cough, congestion, fever, chills. According to , he has not had any infectious symptoms or dehydration symptoms. He does have a Watchman device and has never had a stroke. He is taking blood pressure medication but he has been taking it as directed and the dose has not been titrated recently. Pt is admitted to the floor for hypotension and anemia. DVT PPx Diet: regular diet CODE STATUS: full code Dispo: Review of Systems Review of Systems All other systems reviewed & are negative unless noted below or in HPI [facility] Medical History (Updated 03/05/24 @ 14:13 by Kim Treviño) Hypercalcemia Thrombocytopenia Elevated total protein Acute renal insufficiency Chronic ITP (idiopathic thrombocytopenia) Leukopenia Anemia Pancytopenia Presence of Watchman left atrial appendage closure device device placed 2022 Arthritis BPH (benign prostatic hyperplasia) TIA (transient ischemic attack) Hyperlipidemia Hiatal hernia Neck problem Hypothyroid Hypertension Surgical History Hx of tonsillectomy History of right shoulder replacement Family History Father Pneumonia Father Pneumonia 89 yrs Mother Congestive heart failure 93 yrs Social History Smoking Status: Never smoker Substance Use Type: None Meds Medications and Allergies Allergies No Known Allergies Allergy (Verified 02/21/24 14:51) Home Medications losartan 100 mg tablet 100 mg PO QAM htn 05/19/19 [History Confirmed 03/05/24] aspirin 81 mg chewable tablet 81 mg PO QPM tia 02/27/20 [History Confirmed 03/05/24] finasteride 5 mg tablet 5 mg PO QHS prostate 02/27/20 [History Confirmed 03/05/24] thyroid (pork) 90 mg tablet (Stanford Thyroid) 90 mg PO QAM thyroid 02/27/20 [History Confirmed 04/07/20] tamsulosin 0.4 mg capsule 0.4 mg PO BID 04/07/20 [History Confirmed 04/07/20] cyanocobalamin (vitamin B-12) 1,000 mcg capsule 1,000 mcg PO DAILY 02/21/24 [History Confirmed 03/05/24] doxazosin 4 mg tablet 4 mg PO DAILY 02/21/24 [History Confirmed 03/05/24] fluoxetine 40 mg capsule 40 mg PO DAILY 02/21/24 [History Confirmed 03/05/24] folic acid 1 mg tablet 1 mg PO DAILY 02/21/24 [History Confirmed 03/05/24] memantine 10 mg tablet 10 mg PO BID 02/21/24 [History Confirmed 03/05/24] metoprolol succinate 25 mg tablet,extended release 24 hr 25 mg PO DAILY 02/21/24[History Confirmed 03/05/24] quetiapine 25 mg tablet (Seroquel) 25 mg PO BID 02/21/24 [History Confirmed 03/05/24] spironolactone 25 mg tablet 25 mg PO DAILY 02/21/24 [History Confirmed 02/21/24] tolterodine 2 mg capsule,extended release 24 hr 2 mg PO DAILY 02/21/24 [History Confirmed 03/05/24] acetaminophen 500 mg capsule 500 mg PO BID pain 03/05/24 [History Confirmed 03/05/24] ondansetron HCl 4 mg tablet 4 mg PO .Q8 PRN nausea and vomiting 03/05/24 [History Confirmed 03/05/24] Exam Physical Exam Vital Signs: Temp Pulse Resp BP Pulse Ox O2 Del Method 98.1 F 72 16 110/60 98 Room Air 03/05/24 11:53 03/05/24 12:51 03/05/24 12:51 03/05/24 12:51 03/05/24 12:51 03/05/24 12:51 Narrative: GENERAL: patient is slow to respond and oriented to self only HEENT: NC/AT, conjunctiva clear CARDIOVASCULAR: Regular rate and rhythm, no murmurs gallops or rubs RESPIRATORY: nonlabored work of breathing on room air, clear to auscultation bilaterally, symmetric chest rise ABDOMEN: Soft, non-tender, non-distended, normal bowel sounds EXTREMITIES: No cyanosis, no clubbing, no edema SKIN: Intact, no rash, no trauma NEURO: Cranial nerves grossly intact, no focal neurologic signs Results - Hospitalist H&P Lab Results Labs: Laboratory Last Values Corrected WBC 1.6 X10E3/uL (4.1-10.5) L 03/05/24 11:49 Uncorrected WBC Count 1.6 x10E3/uL (4.1-10.5) L 03/05/24 11:49 RBC 1.93 X10E6/uL (3.90-5.60) L 03/05/24 11:49 Hgb 6.9 g/dL (13.0-17.0) L 03/05/24 11:49 Hct 20.1 % (38.8-50.0) L 03/05/24 11:49 MCV 104.2 fl (83.5-101) H 03/05/24 11:49 MCH 35.9 pg (27.5-35.2) H 03/05/24 11:49 MCHC 34.4 g/dL (32.5-35.6) 03/05/24 11:49 RDW 19.4 % (12.0-14.8) H 03/05/24 11:49 Plt Count 67 x10E3/uL (150-450) L 03/05/24 11:49 MPV 7.6 fl (6.6-10.1) 03/05/24 11:49 Neut % (Auto) N/A 03/05/24 11:49 Lymph % (Auto) N/A 03/05/24 11:49 Daniels % (Auto) N/A 03/05/24 11:49 Eos % (Auto) N/A 03/05/24 11:49 Baso % (Auto) N/A 03/05/24 11:49 Nucleat RBC Rel Count N/A 03/05/24 11:49 Neut # (Auto) N/A 03/05/24 11:49 Lymph # (Auto) N/A 03/05/24 11:49 Daniels # (Auto) N/A 03/05/24 11:49 Eos # (Auto) N/A 03/05/24 11:49 Baso # (Auto) N/A 03/05/24 11:49 Band Neutrophils % 5 % (0-5) 03/05/24 11:49 Lymphocytes % 54 % (18-42) H 03/05/24 11:49 Monocytes % 0 % (2-11) L 03/05/24 11:49 Eosinophils % 10 % (1-3) H 03/05/24 11:49 Basophils % 0 % (0-2) 03/05/24 11:49 Segmented Neutrophils 31 % (50-70) L 03/05/24 11:49 Monocyte Dist Width % (0.00-20.00) 03/05/24 11:49 Platelet Estimate Decreased (Normal) 03/05/24 11:49 Plt Morphology Comment Normal (Normal) 03/05/24 11:49 RBC Morphology N/A 03/05/24 11:49 Anisocytosis Moderate 03/05/24 11:49 Macrocytosis Slight 03/05/24 11:49 PT 15.0 Seconds (9.0-12.9) H 03/05/24 11:49 INR 1.3 03/05/24 11:49 APTT 29.7 Seconds (25.1-36.5) 03/05/24 11:49 PHA Creatinine Clear 28.70 03/05/24 11:49 Sodium 139 mmol/L (136-145) 03/05/24 11:49 Potassium 4.2 mmol/L (3.5-5.1) 03/05/24 11:49 Chloride 103 mmol/L (98-107) 03/05/24 11:49 Carbon Dioxide 24.0 mmol/L (21.0-31.0) 03/05/24 11:49 Anion Gap 16.2 mEq/L (6.0-15.0) H 03/05/24 11:49 BUN 42 mg/dL (7-25) H 03/05/24 11:49 Creatinine 2.19 mg/dL (0.70-1.30) H 03/05/24 11:49 Est GFR (CKD-EPI) 30.449 mL/Min 03/05/24 11:49 Glucose 113 mg/dL (70-100) H 03/05/24 11:49 Calcium 9.9 mg/dL (8.6-10.3) 03/05/24 11:49 Total Creatine Kinase 60 U/L (30-223) 03/05/24 11:49 Troponin I High Sens 22.3 pg/mL (0.0-20.0) H 03/05/24 11:49 B-Natriuretic Peptide 108.0 pg/mL (5-100) H 03/05/24 11:49 Crossmatch (AHG) See Detail 03/05/24 14:00 Microbiology Results Micro: Microbiology - Results from entire visit 03/05/24 12:53 Stool Stool Occult Blood (AMY) - Final Assessment & Plan Assessment/Plan (1) Multiple myeloma: (2) Pancytopenia: (3) Anemia: (4) Acute hypotension: Plan Acute Hypotension Anemia - monitor BP and continue to give fluids - monitor H&H. Transfuse to keep Hgb over 7. - will trend BMP and CBC Multiple Myeloma Pancytopenia - will consult oncology Raegan Snow MS4 Attending attestation: Patient is a 78-year-old male with concern for multiple myeloma who was getting a bone marrow biopsy this morning when it was noted that his blood pressure was in the 70s over 40s. He was sent to the emergency room. Patient is only oriented x 1-2. He is confused and lethargic. His blood pressure improved withIV fluid in the ED. His hemoglobin was noted to be 6.9. There is no signs of bleeding however he has significant drop that is concerning for other etiology besides possible multiple myeloma. Patient was seen and examined. Agree with exam as detailed in note above. Lab findings reviewed. Assessment and plan - Discussed patient with oncologist. Plan for more panel biopsy at bedside by oncologist tomorrow morning. Will obtain a skeletal survey to look for lesions -Hold antihypertensive medication given hypotension. Monitor blood pressure. - IV hydration -Trend CBC and BMP -Agree with transfusion ordered by ER, currently ordered for 2 units packed RBC. Discussed with oncologist regarding this also. -Monitor for any signs of bleeding -IV PPI -Check stool for blood DVT prophylaxis-will use SCDs for now Regular diet IP vs OBS Justification Based on differential dx, clinical care plan, and risk of adverse events, if untreated, in my clinical judgement this patient requires an acute care setting as: INPATIENT because of an expectation of an over 2 midnight stay. Estimated length of stay (# of days): 4 Documented By: Roslyn Townsend DO 03/05/24 8375 Signed By: <Electronically signed by Roslyn Townsend DO> 03/05/24 1616 [facility] Work Phone: 1(873) 589-498203-11-2024 Hospital Discharge instructions Patient Education 12/03/2023 16:13:12 [...] You may also have very sensitive muscles thatmake your bladder squeeze too soon. This condition [...] your health care provider. General instructions Take nwtq-yzn-bvbldyn and prescription medicines only as told by your health care provider. If you were prescribed an antibiotic medicine, take it as told by your health care provider. Do notstop taking the antibiotic even if you start [...] provider. Document Revised: 05/30/2021 Document Reviewed: 05/30/2021 [employer] Patient Education 2022 [employer]. Follow Up Care 07/09/2023 11:46:47 With:MARTY BETANCOURT, Trung Frost, URL Address: [facility] [address] , [place] [address] [phone] When: Unknown Comments:6 mos (increase med dosage) [facility] 02-27-2024 NoteProcedure Cancelation Documentation Entered On: 11/20/2023 10:21 EST Performed On: 11/20/2023 10:17 EST by Sahra Lizarraga RN Procedure Cancelation Documentation Surgery Procedure Cancelation : 11/20/2023 10:17 EST Surgery Procedure Cancel Reason : low hemoglobin/hematocrit. dr shaffer spoke with patient + pt's at length. pt instructed to contact primary care physician Sahra Lizarraga RN - 11/20/2023 10:17 [facility] 11-20-2023 NotePreprocedure Checklist Entered On: 11/15/2023 14:01 EST Performed On: [...] risk situation (congregated living, hemodialysis, infusion clinic, half-way, assisted living, fdc, homeless residential, etc.)? : No Sahra Lizarraga RN - 11/20/2023 9:50 EST Checklist NPO Since : 11/20/2023 08:00 EST Last Fluid Intake : 11/20/2023 08:00 EST Last Food Intake : 11/19/2023 18:00 EST Sahra Lizarraga RN - 11/20/2023 9:50 EST Valuables Prechecklist Grid Valuables at Bedside Clothes : Pants, Shirt, Shoes, Undergarments (Comment: TO LOCKER [Sahra Lizarraga RN - 49:50 EST] ) Sahra Lizarraga RN - 11/20/2023 [...] on and Verified : Yes Fall Risk Neurology Manager : Yes Blood Band on and Verified : Yes Current H&P in Medical Record : Yes (Comment: 11/15/23 [Mary Ellen Price RN - 11/15/2023 13:49 EST] ) Mary Ellen Price RN - 11/20/2023 9:50 EST Current ECG in Medical Record : Yes (Comment: 10/12/23 [Mary Ellen Price RN - 11/15/2023 13:49 EST] ) Basic Lignum : Yes (Comment: 10/12/23 [Mary Ellen Price [...] 24 hrs on New Admits : Yes MYRTLE Hose : Yes Sequential Compression Device : [...] : Living will, Medical durable power of workers compensation attorney Advance Directive Location : Family to bring in copy from home Advance Directive Additional Information : No Mary Ellen Price RN - 11/15/2023 14:17 EST Surgical Clipper Prep Surgery Clipper Prep : done in preop Sahra Lizarraga RN - 11/20/2023 9:50 EST [facility]02-27-2024 NotePAA Education Entered On: 11/15/2023 13:49 EST Performed On: 11/20/2023 [...] Education Dialysis Surgery - Hospital form # [id number] : Verbalizes understanding Mary Ellen Price RN [...] Mary Ellen Price RN - 11/15/2023 13:49 [facility]02-22-2024 NotePatient: NEIL WILCOX Age: 78 years Sex: Male [...] 500 mg = 1 tabs, PRN, ORAL, [id number] acetaminophen/butalbital/caffeine 325 mg-50 mg-40 mg oral tablet = Fioricet 1 tabs, PRN, ORAL, [id number] Aspirin EC 81 mg oral delayed release [...] 2 mg = 1 caps, PRN, ORAL, [id number] losartan 100 mg oral tablet 100 mg [...] closure with watchman device placement , No chestpain, No peripheral edema. Gastrointestinal: No nausea, No [...] strength, No tenderness, No swelling. Integumentary: Warm, [place]. Neurologic: Alert, Oriented. Cognition and Speech: Oriented, Speech clear and coherent. Psychiatric: Cooperative, Appropriate mood & affect. Review / Management Diagnostic Findings: ECHO- Echocardiogram November 2019-LVEF 55% normal LV wall thickness normal left atrial size negative bubblestudy mild aortic regurgitation mild mitral regurgitation trivial tricuspid regurgitation unable toestimate RV systolic pressure. Left atrial volume index was reported to be 41 mL/m?? which actuallywould suggest left atrial enlargement. Normal IVC diameter [...] cardiac clearance and o (more content not included)...[facility]01-29-2024 History of Present illness Narrative* Za Hernández MD - 10/22/2023 11:45 AM EST FU from 09/20/23 : Subjective : Accompanied [...] low, and patient has orthostatic hypotension, today howeverblood pressure is only 10 mm down between [...] due to atrial fibrillation, on anticoagulation. 10. POE4MI7-OTDp at least 5. Has bled score 2 [...] redirect to the Timeline version of the [place] SmartLink. Wt Readings from Last 3 Encounters: [...] Daily atorvastatin (LIPITOR) 40 mg, oral, Daily dcluhamhwi-okkmpwa-kgnkmifd (Fiorinal) 50-325-40 mg capsule 1 capsule, oral, [...] Diagnosis Date Noted Unspecified mood (affective) disorder ([facility]) 10/22/2023 Former smoker 10/22/2023 Encounter for pre-operative [...] days prior to surgery and resume 2 daysafter shoulder surgery, provided he completes the first month of uninterrupted dual antiplatelet therapy. I have requested that the antiplatelet management recommendations come from Dr. Cobb. 5. Patient to follow-up with Loulou Arreguin in 6 months and with me in 1 year 6. Comprehensive profile and lipid profile prior to the visit. Follow up : 6 months Scribe Attestation By signing my name below, Halie Paez YUMI , Hubert attest that this documentation has been prepared under the direction and in the presence of Za Hernández MD. Provider Attestation - Scribe documentation All medical record entries made by the Scribe were at my direction and personally dictated by me. Ihave reviewed the chart and agree that the record accurately reflects my personal performance of the history, physical exam, discussion and plan. documented in this encounterUniversity [facility] Work Phone: 1(123) 214-349501-29-2024 Instructions* Patient Instructions* Phuong Atkinson CMA - 10/22/2023 11:45 AM [...] time of your visit. documented in this encounterUniversity Hospitals [facility] Work Phone: 1(702) 690-685601-19-2024 NotePAA Education Entered On: 10/12/2023 10:13 EST Performed On: 10/12/2023 [...] TeachBack Methodology : Explanation Amy Hager RN - 10/12/2023 10:10 EST Education Nursing General Required [...] EST Infection Control Education Dialysis Surgery - [facility] form # [id number] : Needs further teaching Amy Hager RN [...] SURGEON FOR PREOP EDUCATION OF BLOOD THINNERS [Madan TOLEDO, Amy 10/12/2023 10:10 EST] ) Amy Hager RN [facility]/12[facility] Narrative* Adam Benedict MD - 08/28/2023 1:11 PM EST Discharge Diagnosis Atrial fibrillation ([facility]) Hospital Course S/p VINNIE closure [...] 40 mg tablet; Commonly known as: Lipitor noypmnjtct-kmjqpskogbmic-imon 50-325-40 mg tablet cyanocobalamin 1,000 mcg tablet; [...] Center 09/20/2023 10:30 AM Za Hernández MD [address] Adam Benedict MD documented in this [facility] Work Phone: [phone]) 203-707612-05-2023 History of Present illness Narrative* [place]ble [place], [facility] - 08/28/2023 12:10 PM EST Pharmacy Medication History Review Neil Wilcox is a 77 y.o. male admitted for Atrial fibrillation ([facility]). Pharmacy reviewed the patient's fyjqy-xo-wvxhqxdiv medications and allergies for accuracy. The list below reflects the updated [employer] list. Comments regarding how patient may be [...] tablet (40 mg) by mouth once daily. nlgiibbuar-jtkuxhbrkblco-dkti 50-325-40 mg tablet Past Week Spouse/Significant Other, [...] Below are additional concerns with the patient's [employer] list. [facility] Fel[facility] Transitions of Care Clinical Pharmacist Please reach out via [employer] Chat for questions, if no response call [employer] or [facility] documented in this [facility] Work Phone: [phone]) [phone] Note* Pre-Sedation Documentation - Adam Benedict MD - 08/28/2023 10:39 AM EST Sedation Plan ASA 2 Mallampati class: II. Risks, benefits, and alternatives discussed with patient. [facility] Work Phone: 1(218) 633-365812-05-2023 Miscellaneous Notes* Pre-Sedation Documentation - Adam Benedict MD - 08/28/2023 10:39 AM EST Sedation Plan ASA 2 Mallampati class: II. Risks, benefits, and alternatives discussed with patient. documented in this encounterUniversity Hospitals [facility] Work Phone: 1(421) 540-495612-04-2023 Hospital Discharge instructions* Discharge Instructions* Lucas Pearce APRN-RUSSELL - 08/27/2023 12:20 PM EST Watchman Discharge [...] take any non-prescriptive medications that contain alcohol forthe first 24 hours. DO NOT make any [...] minimal inflammation. If you have any concerns, youmay contact the Aerial Crop Duster or if any of these symptoms become excessive, contact your sas clinical programmer maikel to the emergency room. No tub baths, [...] OF HEART FAILURE: 1. Chest pain 2. SignificantShortness of breath 3. Fainting. Call Provider If [...] Any new concerning symptoms. documented in this [facility] Work Phone: 1([phone]) 898-885810-16-2023 Hospital Discharge instructions Patient Education 07/09/2023 11:37:10 Benign Prostatic Hyperplasia Benign Prostatic Hyperplasia Benign prostatic hyperplasia (BPH) is an enlarged prostate gland that is caused by the normal agingprocess. The prostate may get bigger as a man gets older. The condition is not caused by cancer. The prostate is a walnut-sized gland that is involved in the production of semen. It is located in front of the rectum and below the bladder. The bladder stores urine. The urethra carries stored urine ou t of the body. An enlarged prostate can press on the urethra. This can make it harder to pass urine. The buildup of urine in the bladder can cause infection. Back pressure and infection may progress to bladder damage and kidney (renal) failure. What are the causes? This condition is part of the normal aging process. However, not all men develop problems from thiscondition. If the prostate enlarges away from the [...] urethra. Follow these instructions at home: Take apvb-lpj-pirgdmn and prescription medicines only as told by [...] provider. Document Revised: 03/29/2022 Document Reviewed: 03/29/2022 [employer] Patient Education 2022 [employer]. Follow Up Care 01/01/2023 13:25:14 With:MARTY BETANCOURT, Trung Frost, URL Address: [facility] [address], [place] [address]- When:Within 4 Month(s) [facility] 07-11-2023 Hospital Discharge instructions Patient Education 04/03/2023 09:30:09 [...] muscles. These are the same muscles you squeezewhen you try to stop the flow of [...] tight lift in your rectal area. If youare a female, you should also feel a [...] provider. Document Revised: 01/19/2022 Document Reviewed: 01/19/2022 [employer] Patient Education 2022 [employer]. Follow Up Care 01/23/2023 14:39:57 With:RITESH ALTAMIRANO, CHARLOTTE Meneses, URL Address: [address] [place] [address] When: Unknown Comments:keep appt w/ [facility] 06-01-2023 History of Present illness Narrative* 77-year-old with history of atrial fibrillation, hypercoagulability related to atrial fibrillation,high FIN1QA3-DOHj score, most recently seen February 2023 and presents for follow-up. * Had sleep study, diagnosed with moderate sleep apnea, will have follow-up with sleep service * Had a mechanical fall, tripped on a cord, fell, broke left shoulder, left arm is in a sling. This happened 3 weeks ago. * reports multiple falls over the past 6 months to a year. She says he averages about 6 falls a year. * Does not report any shortness of breath or palpitations. * There is a 10 mm drop in systolic blood pressure sitting to standing. * Laboratory data reviewed, patient has anemia. * interrogation from May-there are bouts of atrial tachycardia and atrial fibrillation, overall atrial fibrillation burden is close to 1%. * Reviewed laboratory data to include basic metabolic profile lipid profile and comprehensive profileand CBC. Hemoglobin 9.1 hematocrit 27 MCV 109 platelets are 99 white blood cell count 2.8 TSH and free T43.33 And 0.17 respectively. In July 2022 hemoglobin and hematocrit were 12 and 34 respectively. * Unsure as to whether patient is taking losartan. Losartan is noted among the medication bottles that patient brought in. Patient's will call to update. * Assessment: * 1. Hypertension-blood pressure today is low, and patient has orthostatic hypotension, today howeverblood pressure is only 10 mm down between sitting and standing. * 3. Lexiscan Myoview September 2021-normal patient with hypertension at that time as well * 3. 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 Recent lab results are within normal limits. * 4.Hyperlipidemia-on statin therapy, lipid profile is at target * 5.BPH-on medications * 6. Left frontoparietal [...] in the way of symptoms. * 9. Hypercoagulability due to atrial fibrillation, on anticoagulation. * 10. GCL2GW4-HYPn at least 5. Has bled score 2 insurance changed, now able to afford Eliquis. * 11. Frequent falls, risk of injury due to fall. * 12. New anemia, possibly related to extensive ecchymosis left arm after the fall. No GI bleeding reported * Recommendations: * 1.Extensive discussion about referral for Watchman device. Reluctantly patient and are in agreement. * 2. Referral to Dr. Cobb for Watchman device was initiated * 3. Titrate blood pressure medications to upright blood pressure * 4. Follow-up in August 2023. * 5. Recheck CBC prior to next visit * 6. If patient is currently on losartan 100 mg p.o. daily, I will reduce the dose to 50 mg p.o. daily and discontinue amlodipine. -[place] Sofy Laguerre DO Work Phone: 1([phone]) 264-337505-02-2023 Hospital Discharge instructions Patient Education 01/23/2023 14:45:05 [...] rubbing (friction), and not enough air circulation. Thecondition can be made worse by: Sweat. Bacteria. A fungus, such as yeast. What increases the risk? This condition is more likely to occur if you have moisture in your skin folds. You are more likelyto develop this condition if you: Have diabetes. [...] exam. You may also have a skin swabto test for bacteria or a fungus. How [...] air conditioner or fan, if available. Apply gtwa-fas-uhurszb and prescription medicines only as told by [...] well after activity or exercise. Use a dining chair seat cushion trimmer on a cool setting to dry between [...] drying your skin and with medicines. Apply guuq-gqg-uopluuk and prescription medicines only as told by [...] Document Reviewed: 06/26/2022 Else[employer] Patient Education 2022 [employer] [facility] 04-10-2023 Hospital Discharge instructions Patient Education 01/01/2023 13:18:22 [...] camera on the end (urethroscope) is used tolook at the urethra. How is this treated? [...] reconstructed. Follow these instructions at home: Take bbxd-ycc-pgnciwj and prescription medicines only as told by your health care provider. If you were prescribed an antibiotic medicine, take it as told by your health care provider. Do notstop taking the antibiotic even if you start [...] 10/06/2016 Document Revised: 04/23/2019 Document Reviewed: 04/23/2019 [employer] Patient Education 2019 [employer]. Follow Up Care 10/02/2022 12:40:38 With:MARTY BETANCOURT, Trung Frost, SANDRINEL Address: [facility] [address] , [place] [address]- When: Unknown [facility] 02-10-2023 Hospital Discharge instructions Patient Education 11/03/2022 13:52:54 [...] camera on the end (urethroscope) is used tolook at the urethra. How is this treated? [...] reconstructed. Follow these instructions at home: Take csay-dfg-iomuscr and prescription medicines only as told by your health care provider. If you were prescribed an antibiotic medicine, take it as told by your health care provider. Do notstop taking the antibiotic even if you start [...] 10/06/2016 Document Revised: 04/23/2019 Document Reviewed: 04/23/2019 [employer] Patient Education 2020 [employer]. Follow Up Care 11/03/2022 12:06:47 With:MARTY BETANCOURT, Trung Frost, URL Address: [address] [place] [phone]- When: Unknown [facility] 01-09-2023 Hospital Discharge instructions Patient Education 10/02/2022 12:35:57 [...] You may also have very sensitive muscles thatmake your bladder squeeze too soon. These symptoms [...] fried and sweet foods. General instructions Take wcyr-cbe-ihzvwhs and prescription medicines only as told by your health care provider. If you were prescribed an antibiotic medicine, take it as told by your health care provider. Do notstop taking the antibiotic even if you start [...] 07/07/2010 Document Revised: 01/01/2020 Document Reviewed: 09/26/2018 [employer] Patient Education 2020 [employer]. Follow Up Care 07/24/2022 14:33:35 With:MARTY BETANCOURT, Trung Frost, URL Address: [facility] [address] , [place] [phone] When:Within 3 Month(s) [facility] 01-01-2023 History of Present illness Narrative* 77-year-old is accompanied by to the office. Last seen by me in September 2022 and soon thereafter seen by Loulou Arreguin NP. At last office visit blood pressure was suboptimally controlled. Patientcomplains of fatigue. His blood pressure is low in the 90s systolic, orthostatics were checked, andthere is orthostatic hypotension standing blood pressure is 80 mmHg. * Remains on high risk medication Eliquis with no bleeding diathesis. Denies palpitations chest pressure tightness or heaviness. Denies any falls. No recent laboratory data to review. * Assessment: * 1. Hypertension-blood pressure today is low, and patient has orthostatic hypotension, fatigue couldbe related to this. * 3. Lexiscan Myoview September 2021-normal patient [...] in the way of symptoms. * 9. Hypercoagulability due to atrial fibrillation, on anticoagulation. * 10. [id number] at least 5. Has bled score 2 insurance changed, now able to afford Eliquis. * Recommendations: * 1. Decrease metoprolol succinate to 25 mg p.o. daily,in view of sinus bradycardia and arterial hypotension. * 2. Decrease amlodipine from 10 mg daily to 5 mg daily * 3. Keep home blood pressure log, in the morning and then 2 hours after morning medications * 4. CBC Free T4 TSH comprehensive profile and lipid profile in the near future * 5. Stagger medications, take losartan in the morning, take metoprolol and doxazosin at bedtime. * 6. We will down titrate medications further based on blood pressure readings and symptoms. * 7. Follow-up in 2 to 3 months sooner if interval problems arise -[facility]Kayode Laguerre DO Work Phone: [phone]) 701-378309-01-2022 History of Present illness Narrative* This is a follow-up from May 2022 visit. * Patient with an acute stroke with no definite etiology, preserved LV systolic function, negative Lexiscan Myoview, loop recorder was implanted in 2019. Has BPH. * Has a thyroid deficiency, is on replacement. * Reviewed laboratory data from 08/22/2022, sodium 138 potassium 3.7 GFR greater than 60 creatinine 1.0 hemoglobin 12 hematocrit 34 MCV 102 platelets 191 INR 1.05. * Blood pressure remains elevated in both upper extremities. * Loop recorder interrogation does suggest tachycardia narrow complex with slight irregularity, very suspicious for atrial fibrillation. * Assessment: * 1. Hypertension-above target * [...] much in the way of symptoms. * Recommendations: * 1. Patient was informed that the patient has an irregularly irregular heart rate, and it is called atrial fibrillation. The pathophysiology of atrial fibrillation, some of the precipitating factors, and the risk of stroke with atrial fibrillation was discussed. Patient was informed that there are di fferent modalities for treating atrial fibrillation, and the plan of treatment would be individualized to the patient's needs and response. The importance of blood thinners to prevent stroke in atrial fibrillation was discussed, the pros and cons of blood thinners were also discussed to include bleeding with over treatment and lack of stroke protection in the setting of under treatment. We talkedabout the available medications for stroke prevention, to include warfarin and the newer anticoagulation agents. The newer anticoagulation agents that were discussed included Eliquis, and Xarelto. Marco efits of warfarin that were discussed included lower-cost [...] or traumatic falls, prompt medical attention should besought. If patient were to have surgical procedures, they would be interruption in these medications, and additional orders will need to be provided. * Also discussed the fact that atrial fibrillation management includes controlling the rate and establishing normal rhythm. Different medications will be trialed based on patient's characteristics for either approach. * Fall risk was also assessed. There was discussion about fall prevention, and in the event of a fall, patient the need to be evaluated to assess injuries, particularly bleeding issues. * Patient should report promptly in the event of any noticeable bleeding such as blood in the stool or black stool bleeding from the nose etc. * 2. Start spironolactone 25 mg p.o. daily * 3. Doxazosin 2 mg daily * 4. 2-week follow-up for blood pressure and orthostatics * 5. Fall precautions were reiterated. [facility] DO Work Phone: [phone]) 861-798608-01-2022 Hospital Discharge instructions Patient Education 04/24/2022 12:32:07 Urinary Incontinence Urinary Incontinence Urinary incontinence refers to a condition in which a person is unable to control where and when topass urine. A person with this condition will urinate when he or she does not mean to (involuntarily). What are the causes? This condition may be caused by: Medicines. Infections. Constipation. Overactive bladder muscles. Weak bladder muscles. Weak pelvic floor muscles. These muscles provide support for the bladder, intestine, and, in women,the uterus. Enlarged prostate in men. The prostate [...] nerve stimulation). For women, using a medical technologist hematology to prevent urine leaks. This is a [...] right after experiencing incontinence. General instructions Take xlxu-ssl-bnslevi and prescription medicines only as told by [...] is unable to control where and when topass urine. This condition may be caused by [...] 10/18/2005 Document Revised: 09/20/2018 Document Reviewed: 12/20/2017 [employer] Patient Education 2020 [employer]. Follow Up Care 01/24/2022 09:45:35 With:MARTY BETANCOURT, Trung Frost, URL Address: [facility] [address], [place] [address]- [phone] When: Unknown Comments:w/ urodynamics [facility] Hospital Discharge instructions Patient Education 01/23/2022 13:27:02 Benign Prostatic Hyperplasia Benign Prostatic Hyperplasia Benign prostatic hyperplasia (BPH) is an enlarged prostate gland that is caused by the normal agingprocess and not by cancer. The prostate is [...] urethra. Follow these instructions at home: Take oscu-mvf-iunngka and prescription medicines only as told by [...] 09/10/2006 Document Revised: 08/05/2019 Document Reviewed: 10/15/2017 [employer] Patient Education 2020 [employer]. Follow Up Care 12/20/2021 10:58:17 With:MARTY BETANCOURT, Trung Frost, URL Address: [facility] [address], [place] [address]- When: Unknown [facility] [place] 01-01-2022 History of Present illness Narrative* Assessment: * 1. Hypertension-above target * 3. [...] have much in the way of symptoms. [facility]-[place] 250 DO Work Phone: [phone] History of Present illness NarrativeMr. Wilcox is a 75-year-old male seen back today for follow-up on his implanted loop recorder. He was seen initially as a consult requested by neurology. He was admitted to [facility] in [place] in November 2019 with an acute stroke. [...] pain seems to be stable from cardiac perspective.[facility] 250 DO Work Phone: [phone] History of Present illness Narrative* Patient is new to this provider. Per Dr. Reyes's prior notes: * Mr. Wilcox is a 75-year-old male seen back today for follow-up on his implanted loop recorder. He was seen initially as a consult requested by neurology. He was admitted to [facility] in [place] in November 2019 with an acute stroke. [...] seems to be stable from cardiac perspective. * Was recently seen by Loulou Arreguin and I have reviewed Loulou's notes. * Reports no chest pressure tightness or heaviness. Occasional dizziness and unsteady gait, related to previous stroke. Compliant with medications * Blood pressure however elevated 160/82. * Blood pressure also elevated during Lexiscan Myoview in September 2021. Perfusion imaging was normal and LV ejection fraction was normal * Patient reports that his blood pressure is frequently lower than that seen in office today. * Assessment: * 1. Hypertension-above target * 3. Lexiscan Myoview September 2021-normal patient with hypertension at that time as well * 3. 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 * 4.Hyperlipidemia-on statin therapy * 5.BPH-on medications * 6. Left frontoparietal stroke * Recommendations: * 1. Check orthostatics * 2. Patient to continue to keep track of blood pressures * 3. Follow-up in about 6 to 8 weeks to reassess adequacy of blood pressure management. * 4. Lipid profile prior to next visit restart done in the recent past * 5. If blood pressure is suboptimally controlled, doxazosin was refilled medications for him in viewof his BPH. -[facility] [employer] 250 DO Work Phone: Chief complaint Narrative - ReportedNEIL WILCOX is being seen for Discuss progress.-[facility] [employer] 250 DO Work Phone: Evaluation + Plan note Future Appointments Appointment Date:01/24/2022 09:30:00 AM Scheduled Provider: Location:[facility] Appointment Type:Urology FT Appointment Date:09/04/2022 08:45:00 AM Scheduled Provider:Trung FERGUSON MD Location:[facility] Appointment Type:URO Office Visit [facility] evaluation + Plan note Future Appointments Appointment Date:04/25/2022 12:15:00 PM Scheduled Provider: Location:[facility] Appointment Type:Urology CALL PAT FT Appointment Date:05/09/2022 11:00:00 AM Scheduled Provider: Location:[facility] Appointment Type:Urology FT Appointment Date:09/04/2022 08:45:00 AM Scheduled Provider:Trung FERGUSON MD Location:[facility] Appointment Type:URO Office Visit [facility] evaluation + Plan note Future Appointments Appointment Date:09/04/2022 08:45:00 AM Scheduled Provider:Trung FERGUSON MD Location:[facility] Future Appointments Appointment Date:09/29/2022 08:45:00 AM Scheduled Provider:Trung FERGUSON MD Location:[facility] Appointment Type:URO Office Visit [facility] evaluation + Plan note Future Appointments Appointment Date:01/01/2023 11:30:00 AM Scheduled Provider:Trung FERGUSON MD Location:[facility] Appointment Type:URO Office Visit [facility] evaluation + Plan note Future Appointments Appointment Date:01/01/2023 11:30:00 AM Scheduled Provider:Tr[facility]USON [facility] Office Visit Diagnostic Tests Pending * Urine Culture [facility]17/22 [facility] Future Appointments Appointment Date:11/06/2022 09:00:00 AM Scheduled Provider: [facility] Nurse Visit Appointment Date:01/01/2023 11:30:00 AM Scheduled Provider:Trung FERGUSON MD Location:[facility] Appointment Type:URO Office Visit [facility] evaluation + Plan note Future Appointments Appointment Date:07/09/2023 10:30:00 AM Scheduled Provider:Trung FERGUSON MD Location:[facility] Appointment Type:URO Office Visit [facility] evaluation + Plan note Future Appointments Appointment Date:04/03/2023 09:00:00 AM Scheduled Provider:CHARLOTTE BAKER PA-C Location:[facility] Appointment Type:URO Office Visit Appointment Date:07/09/2023 10:30:00 AM Scheduled Provider:Trung FERGUSON MD Location:[facility] Appointment Type:URO Office Visit [facility] evaluation + Plan note Future Appointments Appointment Date:11/12/2023 11:15:00 AM Scheduled Provider:Trung FERGUSON MD Location:[facility] Appointment Type:URO Office Visit [facility] evaluation + Plan note Future Appointments Appointment Date:06/16/2024 01:15:00 PM Scheduled Provider:Trung FERGUSON MD Location:[facility] Appointment Type:URO Office Visit [facility] evaluation noteNo Assessments Information Available [facility] assessment information available [facility]* Diagnosis Paroxysmal atrial fibrillation (CMS/HCC)- Primary Atrial fibrillation Atrial fibrillation (CMS/HCC)- Primary Atrial fibrillation Atrial fibrillation (CMS/HCC) Atrial fibrillation documented in this encounter [facility] Work Phone: Evaluation note* Diagnosis Atrial fibrillation (CMS/HCC)- Primary Atrial fibrillation Atrial fibrillation (CMS/HCC) Atrial fibrillation Chronic atrial fibrillation, unspecified (CMS/HCC) 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 documented in this encounter [facility] Work Phone: Evaluation note* Diagnosis [...] shoulder documented in this encounter [facility] Work Phone: Evaluation note* Diagnosis Atrial fibrillation, unspecified type (CMS/HCC) documented in this encounter [facility] Work Phone: Evaluation note* Diagnosis Onset Date Resolution Status Acute renal insufficiency ac squaxin Anemia acute Elevated total protein acute Leukopenia acute Pancytopenia acute Thrombocytopenia acute Acute hypotension acute Acute renal insufficiency ac squaxin Anemia acute Hypercalcemia acute Multiple myeloma acute Pancytopenia acute Syncope acute Thrombocytopenia acute [facility] Work Phone: Evaluation note* Diagnosis Onset Date Resolution Status Acute renal insufficiency ac squaxin Anemia acute Elevated total protein acute Leukopenia acute Pancytopenia acute Thrombocytopenia acute Acute hypotension acute Acute renal insufficiency ac squaxin Alzheimer's dementia acute Anemia acute Encounter for chemotherapy management acute Hypercalcemia acute Leukopenia acute Multiple myeloma acute Pancytopenia acute Syncope acute Thrombocytopenia acute [facility] Work Phone: History of Present illness Narrative* The patient states he has been generally stable since the last visit. Comorbid Illnesses: hypertension. * Symptoms: denies chest pain at rest, denies exertional chest pain, denies dyspnea, worsened fatigue, worsened exercise intolerance, denies palpitations, denies edema, denies orthopnea, denies dizziness and denies orthostatic dizziness. * Disease Monitoring: -[facility] 250 DO Work Phone: History of Present [...] the near future to establish anticoagulation practice. -[facility] Laguerre DO Work Phone: [...] the near future to establish anticoagulation practice. -[facility]-Kayode Laguerre DO Work Phone: History of Present [...] medication regimen. He denies medication side effects. [facility] Work Phone: History of Present illness Narrative* [...] medication regimen. He denies medication side effects. [facility] DO Work Phone: Hospital course Narrative No data available for this section [facility] Discharge instructions No data available for this section [facility] Additional Instructions Longterm Shelter to manage care: - Full code - PT/OT eval and treat - Routine vital signs - Mepilex border foam to Coccyx for added protection. Change every 3 days and as needed. - CBC/CMP on Sunday - results to Oncology Dr. Cardenas [facility] Work Phone: Progress note No data available for this section [facility] reason for referral (narrative)* Consultation (Routine) - Authorized Specialty Diagnoses / Procedures Referred By Romelia t Referred To Contact Cardiology Diagnoses Paroxysmal atrial fibrillation (CMS/HCC) Procedures Follow Up In Cardiology Za Hernández MD [address] [place] [id number] Za Hernández MD [address] [facility] [address] [place] [address] Referral ID Status Reason Start Date Expiration Date V isits Requested Visits Authorized [id number] Authorized 10/22/2023 10/21/2024 1 1 * Consultation (Routine) - Authorized Specialty Diagnoses / Procedures Referred By Contac t Referred To Contact Cardiology Diagnoses Paroxysmal atrial fibrillation (CMS/HCC) Procedures Follow Up In Cardiology Za Hernández MD [address] [facility] [address] [place] [address] Loulou Arreguin, BUTTERMILK DRIER OPERATOR-SENIOR MARKET RESEARCH ANALYST [address] [facility], [address] [place] [address] Referral ID Status Reason Start Date Expiration Date V isits Requested Visits Authorized [id number] Authorized 10/22/2023 10/21/2024 1 1 [facility] Work Phone: Reason for Referral Status Reason Specialty Diagnoses / Procedures Referred By Contact Referred To Contact Not Required - [facility] Radiology Diagnoses 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) Procedures CT HEAD WO CONTRAST Ul Shalom Graham MD [address] [address] Specialty Diagnoses / Procedures Referred By Contac t Referred To Contact Radiology Diagnoses Atrial fibrillation, unspecified type (CMS/HCC) Procedures [place] [address] [place] [address] Referral ID Status Reason Start Date Expiration Date Visits Requested Visits Authorized [id number] Authorized Perform Procedure 11/01/2023 10/31/2024 1 1 Assessments Diagnosis 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) Advance Directives No Advanced Directives Records FoundDocuments on File Type Date Recorded Patient Cell Cleaner Expl anation Advance Directives and Living Will Power of Kayak Maker Latest Code Status on File Code Status Date Activated Date Inactivated Comments Full Code 12/21/2019 9:20 PM 12/22/2019 7:58 PM Advance Directive Response Recorded Date/ Time Advance Directives No October 30, 2018 10:33am Documents on File Type Date Recorded Patient Cell Cleaner Expl anation ACP-Advance Directive ACP-Power of Kayak Maker Latest Code Status on File Code Status [...] Complaint and Reason for Visit Chief Complaint NEW Pancytopenia pancytopenia Multiple Myeloma Low blood pressure Reason for Visit Acute renal insuffic iency Anemia Elevated total protein Leukopenia Pancytopenia Thrombocytopenia Acute hypotension Acute renal insufficiency Anemia Hypercalcemia Multiple myeloma Pancytopenia Syncope Thrombocytopenia Chief Complaint pancytopenia NEW Pancytopenia Chief Complaint [...] seen for a 9 month follow-up of.NEIL SAUCEDOUBB is being seen for a 9 month follow-up of.NEIL SAUCEDOUBB is being seen for hypertension.NEIL SAUCDEOUBB is being seen for hypertension.NEIL SAUCEDOUBB is being seen for hypertension.NEIL DAVIAN is being seen for a 1 month follow-up of.NEIL DAVIAN is being seen for a 1 month follow-up of.* One week f/u medication reconciliation. * NEIL SAUCEDOUBB is being seen for a 1 week [...] forward. In the meantime, I will h abhisheke nursing staff contact pharmacy to verify. * [...] WO CONTRAST Ul Shalom Graham MD [address] [facility] [address] [place] [id number] Reason Comments laao Specialty Diagnoses / Procedures Referred By Contac t Referred To Contact Diagnoses Atrial fibrillation (CMS/HCC) Atrial fibrillation (CMS/HCC) [I48.91] Procedures CA PERQ CLSR TCAT L ATR APNDGE W/ENDOCARDIAL IMPLNT CA PERQ CLSR TCAT L ATR APNDGE W/ENDOCARDIAL IMPLNT LAAO (Left Atrial Appendage Occlusion) [place] [address] [place] [address] [place] [address] [facility] [address] [place] [address] Referral ID Status Reason Start Date Expiration Date Visits Re quested Visits Authorized [id number] 1 1 Reason Comments Follow-up Watchman follow up Specialty Diagnoses / Procedures Referred By Contac t Referred To Contact Radiology Diagnoses Atrial fibrillation, unspecified type (CMS/HCC) Procedures [place] [address] [place] [address] Referral ID Status Reason Start Date Expiration Date Visits Requested Visits Authorized [id number] Authorized Perform Procedure 11/01/2023 10/31/2024 1 1 [...] section and content) DATE CREATED AUTHOR 10/14/2020 [facility] DATE CREATED AUTHOR AUTHOR'S ORGANIZ ATION 04/23/2021 [facility] DATE CREATED AUTHOR AUTHOR'S ORGANIZ ATION 10/04/2021 [facility] DATE CREATED AUTHOR AUTHOR'S ORGANIZ ATION 01/24/2023 [facility] [place] [facility] DATE CREATED AUTHOR AUTHOR'S ORGANIZ ATION 06/15/2023 [employer] DATE CREATED AUTHOR AUTHOR'S ORGANIZ ATION 08/05/2023 [facility] DATE CREATED AUTHOR AUTHOR'S ORGANIZ ATION 09/02/2023 [facility] DATE CREATED AUTHOR AUTHOR'S ORGANIZ ATION 10/24/2023 [facility] DATE CREATED AUTHOR AUTHOR'S ORGANIZ ATION 11/21/2023 [facility] DATE CREATED AUTHOR AUTHOR'S ORGANIZ ATION 12/04/2023 [facility] DATE CREATED AUTHOR AUTHOR'S ORGANIZ ATION 01/03/2024 [facility] DATE CREATED AUTHOR AUTHOR'S ORGANIZ ATION 01/16/2024 [facility] DATE CREATED AUTHOR AUTHOR'S ORGANIZ ATION 02/13/2024 [facility] dical Specialists [facility] DATE CREATED AUTHOR AUTHOR'S ORGANIZ ATION 03/05/2024 [facility] DATE CREATED AUTHOR AUTHOR'S ORGANIZ ATION 03/09/2024 [facility] ys[facility] Group Goals (unrecognized section and content) [...] 2024 End: February 21, 2024 Team Status: Active Member Role Status Dates Sam Cooney DO Primary Care Provide r, Referring Provider Active Start: March 03, 2024 Bertha Cuevas MD Attending Provider Active Start: March 03, 2024 Team Status: Active Member Role Status Dates Sam Cooney DO Primary Care Provider Active Start: March 05, 2024 Bertha Cuevas MD Attending Provider Active Start: March 05, 2024 Team Status: Active Member Role Status Dates Sam Cooney DO Primary Care Provider Active Start: March 05, 2024 Trung Armenta DO Emergency Provider Active St art: March 05, 2024 Roslyn Townsend DO Admit Provider, Attending Provider Active Start: March 05, 2024 Verenice Mario MD Other Provider Active Start: March 05, 2024 Team Status: Active Member Role Status Dates Sam Cooney DO Primary Care Provide r, Referring Provider Active Start: February 21, 2024 Bertha Cuevas MD Attending Provider Active Start: February 21, 2024 Team Status: Inactive Member Role Status Dates Sam Cooney DO Primary Care Provider Active Za Hernández MD Attending Provider Active Woodyard Crane Operator Relationship Specialty Start Date End Date Sam Cooney DO [address] [place] [address] PCP - General 09/24/19 Woodyard Crane Operator Relationship Specialty Start Date End Date Sam Cooney DO [address] [place] [address] PCP - General 09/24/19 Woodyard Crane Operator Relationship Specialty Start Date End Date Sam Cooney DO [address] [place] [address] PCP - General 09/24/19 Woodyard Crane Operator Relationship Specialty Start Date End Date Sam Cooney MD [address] [place] [address] PCP - General Family Medicine 08/13/23 Woodyard Crane Operator Relationship Specialty Start Date End Date Sam Cooney DO [address] [place] [address] PCP - General 09/24/19 Team Status: Inactive Member Role Status Dates Sam DO Eros Primary Care Provider Active Start: March 05, 2024 End: March 09, 2024 Trung Armenta DO Emergency Provider Active St art: March 05, 2024 End: March 09, 2024 Roslyn Townsend DO Admit Provider Active Start: March 05, 2024 End: March 09, 2024 Verenice Mario MD Other Provider Active Start: March 05, 2024 End: March 09, 2024 Vijay Aguilar MD Attending Provider Active S tart: March 05, 2024 End: Yeni 16th, 2024 Scheduled Active and Recently Administ ered Medications [...] 1220, Intraprocedure 1220 (Given - Provid er: Rayn Cobb MD) lidocaine (Xylocaine) 20 mg/mL (2 [...] Starting on Sun08/28/23 at 1217, Intraprocedure 1217 ([facility] ider: Kala Canseco RN) traMADol (Ultram) [...] BE BASED ON THE PRIMARY CLINICAL RECORDS. [employer] [facility]. provides no warranty or guarantee of the accuracy or completeness of information in this document.
[2024-03-10 07:53] LABS: Alanine Aminotransferase 17 U/L (16-63); Albumin Globulin Ratio 0.3; Albumin Level 2.1 g/dL (3.4-5.0); Alkaline Phosphatase 65 U/L (46-116); Anion Gap 15.4; Aspartate Amino Transferase 16 U/L (15-37); BUN Creatinine Ratio 13.5; Bilirubin Total 0.5 mg/dL (0.2-1.0); Calcium 7.7 mg/dL (8.5-10.1); Carbon Dioxide 21.4 mmol/L (21.0-32.0); Chloride 104 mmol/L (98-107); Estimated GFR (African America >60 (>=60); Estimated GFR (Non-African Ame >60 (>=60); Globulin 6.2 g/dL; Glucose 93 mg/dL (74-106); Potassium 3.8 mmol/L (3.5-5.1); Sodium 137 mmol/L (136-145); Total Protein 8.3 g/dL (6.4-8.2)
[2024-03-10 07:59] LABS: Hematocrit 26.4 % (42.0-54.0); Hemoglobin 9.1 g/dL (14.0-18.0); Mean Corpuscular HGB Conc 34.5 g/dL (29.9-35.2); Mean Corpuscular Hemoglobin 33.2 pg (25.9-34.0); Mean Corpuscular Volume 96.4 fL (80.0-94.0); Mean Platelet Volume 9.9 fL (9.5-13.5); Platelet Count 52 10^3/uL (150-450); Red Blood Count 2.74 10^6/uL (4.70-6.10); Red Cell Distribution Width 18.5 % (11.0-15.0); White Blood Count 1.8 10^3/uL (4.0-11.0)
[2024-03-10 13:01] LABS: Segmented Neut Absolute Manual 0.63 10^3/uL (1.4-6.5)
[2024-03-10 13:03] LABS: Monocytes Absolute Manual 0.05 10^3/uL (0.30-0.80)
== END 2024-03-10 01:19 | disposition home or self-care (01) ==
LOC: LAB 01:18
PROVIDERS: PCP Family Medicine; Visit Provider Family Medicine
DX: F02.C3 Dementia in other diseases classified elsewhere, severe, with mood disturbance (principal); D61.818 Other pancytopenia; I10 Essential (primary) hypertension; C90.00 Multiple myeloma not having achieved remission; N17.9 Acute kidney failure, unspecified
CPT/HCPCS: 36415; 80053; 85007; 85027

== ENCOUNTER 2024-03-13 10:21 | Outpatient (OUT) | payer MEDICARE, SELFPAY ==
--- NOTE | 2024-03-13 10:26 | MR_ITS ---
[address] [address] Patient Name: NEIL MARCELO MRN: [id number] date: 1945 Sex: M Assigned Patient Location: MRI Current Patient Location: Accession/Order Number: [id number] Exam Date: 03/13/2024 11:00 Report Date: 03/14/2024 07:49 At the request of: WAQAS DIAMOND Procedure: MR lumbar spine wo con EXAMINATION: MR lumbar spine wo con HISTORY: Compression Fracture Of L4 S32.040D COMPARISON: No relevant comparison available. TECHNIQUE: A variety of imaging planes and parameters were utilized for visualization of suspected pathology. FINDINGS: For the purposes of numbering, sagittal T2 image # 8 extends from the T8-T9 vertebral body superiorly to the S3 level inferiorly. PARASPINAL AREA: Normal with no visible mass. Bilateral renal cysts partially visualized BONES: Normal alignment with no spondylolisthesis. Anterior wedge compression fractures T11 L1 L2 and L4 with some bone edema noted along the lower endplate of the L1 vertebral body suggesting an acute or subacute component. The remainder of the compression fractures appear chronic with no bone edema. Heterogeneous appearance of the marrow likely age-related change. Mild diffuse degenerative spondylosis CORD/CAUDA EQUINA: Normal caliber, contour, and signal intensity. DISC LEVELS: 12-L1: Early degenerative disc disease is present without focal protrusion or neural impingement. L1-L2: Early degenerative disc disease is present without focal protrusion or neural impingement. L2-L3: Early degenerative disc disease is present without focal protrusion or neural impingement. L3-L4: Early degenerative disc disease is present without focal protrusion or neural impingement. L4-L5: Moderate degenerative disc disease is present without visible neural impingement. L5-S1: Advanced degenerative disc disease is present. 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
== END 2024-03-13 10:22 | disposition home or self-care (01) ==
LOC: MRI 10:21
PROVIDERS: PCP Family Medicine; Visit Provider Orthopaedic Surgery Orthopaedic Surgery of the Spine
DX: S32.040D Wedge compression fracture of fourth lumbar vertebra, subsequent encounter for fracture with routine healing (principal); M51.36 Other intervertebral disc degeneration, lumbar region
CPT/HCPCS: 72148

== ENCOUNTER 2024-03-19 01:11 | Outpatient (REF) | payer MEDICARE, OTHER, SELFPAY ==
--- OUTSIDE RECORDS SUMMARY | 2024-03-19 01:18 | XMS_ITS | CCD ---
Author Organization [facility] Care Team Providers Care Conductor/Engineer Name Role Phone Hooker, Sam E Primary Care Provider [phone] Hooker, Overton Primary Care Provider Erick Wise Attending Provider Ul Santos, Israr Attending Provider [phone] Hooker, Overton E Primary Care Provider [phone] MURRAY LESTER Admitting Unavailable GRAYSON GAOL Attending Unavailable BILLY VILLA Referring Unavailable CYNDY MADISON Consulting Unavailable BRISTOL, SAM E Primary Care Unavailable UL SANTOS, ISRAR Referring Unavailable BRISTOL, SAM E Primary Care Unavailable UL SANTOS, ISRAR Referring Unavailable BRISTOL, SAM E Primary Care Unavailable Hooker, Sam Attending Provider Hooker, Overton Primary Care Provider [phone] Erick Wise Attending Provider Hooker, Sam Primary Care Provider [phone] Erick Wise Attending Provider Hooker Overton Attending Provider [phone] Hooker, Overton E Unavailable Unavailable Unavailable BRISTOL, SAM Primary Care Physician Unavailable Unavailable Hooker DO Leean Primary Care Provider MD Za Hernández Attending Provider DR TRUNG RUGGIERO Consulting Unavailable FERGUSON ., DR NINO Attending Unavailable MARTY ., DR NINO Admitting Unavailable EROS, DR VARGAS Primary Care Unavailable ROXANNE ZAIDI Consulting Unavailable FERGUSON ., DR NINO Attending Unavailable FERGUSON ., DR NINO Admitting Unavailable FERGUSON ., DR NINO Consulting Unavailable BRISTOL, DR VARGAS Primary Care Unavailable RORY, CLARA Consulting Unavailable ARREGUIN, DR CONCHITA Frost Consulting Unavailable RODRÍGUEZ, DR CONCHITA Frost Attending Unavailable BRISTOL, DR VARGAS Primary Care Unavailable RODRÍGUEZ, DR CONCHITA Frost Admitting Unavailable JUAN R, [...] Attending Unavailable BRISTOL, DR VARGAS Admitting Unavailable Hooker, DO Vargas Primary Care Provider [phone] MD Za Hernández Attending Provider [phone] PURNIMA DAVIDSON JR Primary Care Unavailable Hooker, DO Vargas Primary Care Provider MD Za Hernández Attending Provider [phone] Sam Cooney DO Primary Care [facility] ider Eros, Dr. Sam Evans Primary Care Unavailable ZA HERNÁNDEZ Attending Unavailable ZA HERNÁNDEZ Referring Unavailable Eros, Dr. Sam Evans Primary Care Unavailable ZA HERNÁNDEZ Attending Unavailable ZA HERNÁNDEZ Referring Unavailable Eros, Dr. Sam Evans Primary Care Unavailable ZA HERNÁNDEZ Attending Unavailable ZA HERNÁNDEZ Referring Unavailable Eros, Dr. Sam Evans Primary Care Unavailable Rodríguez, Deidre Hurt Attending Dima Arreguin, Ms. Loulou Hurt Referring Dima Cooney, Dr. Sam Evans Primary Care Unavailable Rodríguez, MsDeidre Hurt Attending Dima Arreguin, Ms. Loulou Hurt Referring Violettevai labwalter Cooney, Dr. Sam Evans Primary Care Unavailable Hooker, Dr. Sam Evans Primary Care Unavailable Hooker, Dr. Sam Evans Primary Care Unavailable Hooker, Dr. Sam Evans Primary Care Unavailable Hooker, DO Sam Primary Care Provider [phone] MD Za Hernández Attending Provider ZA HERNÁNDEZ Attending Unavailable CORNUCOPIASAM [facility] Care Unav ailable Sam Cooney MD Primary Care Provider [phone] GUNNAR SHAFFER DO Attending Unavailabl e SHAFFER DO, GUNNAR Admitting Unavailabl e CAMILA ZEPEDA MD Referring Unavailabl e SHAFFER DO, GUNNAR Attending Unavailabl e SHAFFER DO, GUNNAR Admitting Unavailabl e CHARLOTTE BAKER Attending Unavailable Trung FERGUSON Attending Unavailable MARTY, Trung Frost Attending Unavailable Trung FERGUSON Attending Unavailable Trung FERGUSON Attending Unavailable CHARLOTTE BAKER Attending Unavailable RYAN COBB Referring Unavailable SAM COONEY Primary Care Unav ailable RYAN COBB Attending Unavailable SAM COONEY Primary Care Unav ailable BRISTOL, SAM E Referring Unavailable BRISTOL, SAM E Primary Care Unavailable ROXANNE GIVENS Attending Unavailable BRISTOL, SAM E Referring Unavailable BRISTOL, SAM E Primary Care Unavailable KYLEE ARREGUIN Attending Unavailable SHERLEY CHAVEZ Attending Unavailable GRACE VAZQUEZ Attending Unavailable Hooker, DO Sam Primary Care Provider [phone] Hooker, DO Sam Referring Provider [phone] MD Bertha Cuevas Attending Provider SAM COONEY [facility] Care Unav ailable RYAN COBB Admitting Unavailable FILBEN RYAN J Attending Unavailable BRISTOL, SAM MANJU LEN Primary Care Unav ailable Hooker, DO [place] Primary Care Provider [phone] Hooker, DO [place] Referring Provider MD Bertha Cuevas Attending Provider Nina Trung M Emergency Provider KristianDO rupa Yazid Admit Provider DO Kristian Yazid Attending Provider [phone] MD Verenice Mario Other Provider MD Vijay Aguilar Attending Provider Hooker, DO [place] Primary Care Provider [phone] MD Bertha Cuevas Attending Provider [phone] Hooker, DO [place] Referring Provider MD Za Hernández Attending Provider Hooker, Overton Primary Care Unavailable Hernández, Za Admitting Unavailable Hernández, Za Attending Unavailable Hooker, Sam Primary Care Unavailable Hernández, Za Admitting Unavailable Edgar, Za Attending Unavailable Hernández, Za Attending Unavailable Hernández, Za Admitting Unavailable Hooker, Sam Primary Care Unavailable Hooker, Overton Primary Care Unavailable Hernández, Za Attending Unavailable Hernández, Za Admitting Unavailable Hooker, Overton Primary Care Unavailable Al-Marrawi, Mhd Yaser Admitting Unavailabl e Al-Marrawi, Endyd Yaser Attending Unavailabl e Hooker, Sam Referring Unavailable Hooker, Sam Primary Care Unavailable Al-Marrawi, Mhd Yaser Admitting Unavailabl e Al-Marlara, Endyd Yaser Attending UnavailVerenice Sanchez Consulting Unavailable Kristian, Yazid Admitting Unavailable Vijay Aguilar Attending Unavailable Hooker, Overton Primary Care Unavailable Hooker, Overton Primary Care Unavailable Hernández, Za Attending Unavailable Hernández, Za Admitting Unavailable Unavailable Unavailable Unavailable Medications Current Medications Medication Drug Class(es) Dates Sig (Normalized) Sig (Original) acetaminophen 500 mg oral capsule (7 sources) Start: 06-12-2024 take 500 mg by mouth twice daily [...] three times daily as needed for pain Ibwuerosmx-USFG-Xsqjzsey 50-325-40 MG Or al Tablet TAKE 1 TABLET 3 TIMES DAILY NEEDED FOR PAIN. Quantity: 0 Refills: 0 Ordered: 18-Jul-2021 DO Start : 18-Jan-2021 Active Start: 05-19-2019 butalbital-sadie taminophen-caffeine (FIORICET, ESGIC) 50-325-40 MG per tablet Take by mouth 0 05/19/2019 Active Start: 05-19-2019 End: 02-21-2024 Jrbbpxyzlr-Ztrzjvlgkdrrq-Djz f Discontinued 1 TAB PO As Directed May 19, 2019 12:00am February 21, 2024 2:58pm [id number] 200 actuat albuterol 0.09 mg/actuat metered dose [...] by mouth every four hours as needed laqsrvwlgp-nzkqwcn-kybpycqf (Fiorinal) 50-325-40 mg capsule Take 1 capsule [...] Start: 01-21-2021 take 1 capsule by mo [facility] once daily FLUoxetine (PROzac) 20 mg [...] Active folic acid 1 mg oral tablet (15 sources) Start: 02-21-2024 take 1 mg by [...] 2-3 weeks. if no improvement contact office., [facility]/pharmacy #[id number], 175, cm, 01/23/23 14:14:00 EDT, Height/Length Dosing, 81, kg, 01/23/23 14:14:00 EDT, Weight Dosing Start Date: 01/23/23 Stop Date: 02/13/23 Status: Ordered lenalidomide 25 mg oral capsule (3 sources) Thalidomide Analog Start: 03-07-2024 Lenalidomide (Revlimid) 25 mg capsule Active 25 MG PO Daily March 07, 2024 12:00am TAKE ONE DAILY FOR 21 DAYS AND 7 DAYS OFF.ADULT MALE AUTH#[id number] levothyroxine sodium 0.125 mg oral tablet (20 sources) l-Thyroxine take 1 tablet by mouth once daily before mealtime levothyroxine (Synthroid, Levoxyl) 125 mcg tablet Take 1 tablet (125 mcg) by mouth once daily in the morning. Take before meals. 0 Active levothyroxine (S ynthroid, Levoxyl) 50 MCG tablet Take 90 mcg by mouth. 0 Active take 1 capsule by mo uth once daily before breakfast Levothyroxine Sodium 125 [...] Active memantine hydrochloride 10 mg oral tablet (15 sources) N-oibpoz-T-aspartate Receptor Antagonist Start: 02-21-2024 take 10 mg [...] succinate 25 mg extended release oral tablet (16 sources) beta-Adrenergic Misael Start: 02-21-2024 take 25 [...] DAILY. Quantity: 90 Refills: 3 Ordered: 26-Feb-2023 Alton Hernández MDtha Start : 26-Feb-2023 Active Start: 02-15-2023 take [...] new start ondansetron 4 mg oral tablet (10 sources) Serotonin-3 Receptor Antagonist Start: 03-05-2024 Ondansetron [...] 40 mg QUEtiapine 25 mg oral tablet (5 sources) Atypical Antipsychotic Start: 02-21-2024 take 0.5 [...] 0 Start Date: 07/09/23 Status: Ordered thyroid (correction) 90 mg oral tablet (20 sources) Start: 02-27-2020 take 1 tablet by mouth once daily in the morning Thyroid (Pork) (Webb Thyroid) 90 mg tablet Active 90 MG PO Every morning February 27, 2020 12:00am Start: 12-29-2019 Webb Thyroid Oral, Daily, Refills(s) 0 Start Date: [...] 21, 2024 12:00am Start: 07-09-2023 take 1 capsule by [facility] every twenty-four hours in the morning tolterodine LA (Detrol LA) 2 MG 24 hr capsule Take 2 mg by mouth in the morning. 0 07/09/2023 Active Start: 01-23-2022 take 1 capsule by mo uth every other day tolterodine 4 mg Cap-ER 4 mg = 1 cap(s), Oral, Every other day, # 30 cap(s), Refills(s) 6, Pharmacy: [facility]/pharmacy #[id number], 175, cm, 01/23/22 13:07:00 EDT, Height/Length Dosing, 83, kg, 01/23/22 13:07:00 EDT, Weight Dosing Start Date: 01/23/22 Status: Ordered Start: 01-23-2022 take 1 capsule by mouth once d aily tolterodine 4 mg Cap-ER 4 mg = 1 cap(s), Oral, Daily, # 30 cap(s), Refills(s) 6, Pharmacy: [facility]/pharmacy #[id number], 175, cm, 01/23/22 13:07:00 EDT, Height/Length Dosing, 83, kg, 01/23/22 13:07:00 EDT, Weight Dosing Start Date: 01/23/22 Status: Ordered Start: 09-27-2020 tolterodine 2 mg Cap-ER 2 mg = 1 cap(s), Oral, As Directed, Take one cap in the morning and one at dinnertime., # 60 cap(s), Refills(s) 11, Pharmacy: [facility]/pharmacy #[id number], 175, cm, 12/03/23 15:27:00 EDT, [...] Active vitamin b12 1 mg oral capsule (13 sources) Vitamin B12 Start: 02-21-2024 take 1000 [...] 02/05/2023 08/28/2023 Discontinued (Entered in Error) amoxicillin (Bartlett xil) 500 mg capsule Take 1 capsule [...] procedure, # 2 tab(s), Refills(s) 0, Pharmacy: [facility]/pharmacy #[id number], 175, cm, 01/23/22 13:07:00 EDT, [...] Active dicyclomine hydrochloride 20 mg oral tablet (17 sources) Anticholinergic Start: 05-19-2019 End: 04-07-2020 take [...] Apply as needed prior to self dilation, [facility]/pharmacy #[id number], 175, cm, 11/03/22 13:03:00 EST, Height/Length Dosing, 82.8, kg, 11/03/22 13:03:00 EST, Weight Dosing Start Date: 12/01/22 Stop Date: 12/01/22 Status: Ordered Start: 12-01-2022 End: 12-01-2022 Glydo 2% topical gel with ap plicator 11 mL 0.2 gm, 10 mL, Topical, As Directed, 30 mL, Refill(s) 6, Apply as needed prior to self dilation, [facility]/pharmacy #[id number], 175, cm, 11/03/22 13:03:00 EST, Height/Length Dosing, 82.8, kg, 11/03/22 13:03:00 EST, Weight Dosing Start Date: 12/01/22 Stop Date: 12/01/22 Status: Ordered Start: 12-01-2022 End: 12-01-2022 Glydo 2% topical gel with ap plicator 11 mL 0.2 gm, 10 mL, Topical, As Directed, 30 mL, Refill(s) 6, Apply as needed prior to self dilation, [facility]/pharmacy #[id number], 175, cm, 11/03/22 13:03:00 EST, Height/Length Dosing, 82.8, kg, 11/03/22 13:03:00 EST, Weight Dosing Start Date: 12/01/22 Stop Date: 12/01/22 Status: Ordered Start: 12-01-2022 End: 12-01-2022 Glydo 2% topical gel with ap plicator 11 mL 0.2 gm, 10 mL, Topical, As Directed, 30 mL, Refill(s) 6, Apply as needed prior to self dilation, [facility]/pharmacy #[id number], 175, cm, 11/03/22 13:03:00 EST, [...] (20 sources) alpha-Adrenergic Misael Start: 01-20-2020 End: 06-12-2024 take 0.4 mg by mouth twice daily Tamsulosin Discontinued 0.4 MG PO Twice daily April 07, 2020 12:00am March 05, 2024 6:44pm Thyroid (Pork) (Webb Thyroid) 90 mg tablet (4 sources) Start: 02-27-2020 End: 03-05-2024 take 1 tablet by mouth once daily in the morning Thyroid (Pork) (Webb Thyroid) 90 mg tablet Discontinued 90 MG [...] cardiac dysrhythmias] Episodic Coagulation and hemorrhagic disorders (17 sources) Chronic idiopathic thrombocytopenic purpura; Translations: [Immune thrombocytopenic purpura] Onset: 4 02-21-2024 Chronic Coronary atherosclerosis and other heart disease (19 sources) History of myocardial infarction; Translations: [Old myocardial infarction] Onset: 2 12-29-2019 Chronic Deficiency and other anemia (8 sources) Pancytopenia; Translations: [Other pancytopenia] 02-21-2024 Chronic Deficiency and other anemia (9 sources) Other pancytopenia; Translations: [Other pancytopenia] Onset: 4 02-21-2024 Chronic Deficiency and other anemia (10 sources) Anemia; Translations: [Anemia, unspecified] 02-21-2024 Episodic Deficiency and other anemia (9 sources) Anemia, unspecified; Translations: [Anemia, unspecified] Onset: 4 02-21-2024 Episodic Delirium, dementia, and amnestic and other cognitive disorders (8 sources) Alzheimer's disease; Translations: [Alzheimer's disease, unspecified] Onset: 4 03-07-2024 Chronic Diseases of white blood cells (12 sources) Leukopenia; Translations: [Decreased white blood cell [...] PROSTATITIS] Onset: 2 Chronic Maintenance chemotherapy; radiotherapy (7 sources) Patient encounter status; Translations: [Encounter for antineoplastic chemotherapy] Onset: 4 03-07-2024 Chronic Mood disorders (7 sources) Major depressive disorder, single episode, unspecified; Translations: [Mood disorder] Onset: 2 10-22-2023 Chronic Multiple myeloma (9 sources) Multiple myeloma; Translations: [Multiple myeloma not [...] medications] Episodic Other and unspecified benign neoplasm (17 sources) History of polyp of colon; Translations: [...] Translations: [Atrial fibrillation] Episodic Other circulatory disease (8 sources) Low blood pressure; Translations: [Hypotension, unspecified] 03-05-2024 Episodic Other circulatory disease (4 sources) Orthostatic hypotension; Translations: [Orthostatic hypotension] Episodic Other circulatory disease (5 sources) Hypotension, unspecified; Translations: [Hypotension, unspecified] Onset: [...] Episodic Other diseases of kidney and ureters (4 sources) Acute renal insufficiency; Translations: [Disorder of kidney and ureter, unspecified] 02-21-2024 Episodic Other diseases of kidney and ureters (9 sources) Disorder of kidney and ureter, unspecified; [...] Onset: 3 07-31-2023 Chronic Other hematologic conditions (4 sources) Protein level - finding; Translations: [Other specified abnormalities of plasma proteins] 02-21-2024 Episodic Other hematologic conditions (5 sources) Other specified abnormalities of plasma proteins; [...] Episodic Other nutritional; endocrine; and metabolic disorders (4 sources) Hypercalcemia; Translations: [Hypercalcemia] 02-27-2024 Chronic Other nutritional; endocrine; and metabolic disorders (5 sources) Hypercalcemia; Translations: [Hypercalcemia] Onset: 4 03-05-2024 [...] to d ocumentation in Social History. 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 of anticoagulants; Translations: [AIRCONDITIONING ENGINEER CURRNT USE ANTICOAGULANTS] Onset: 09-07-2022 Episodic Other aftercare (1 source) half-way (current) use of aspirin; Translations: [AIRCONDITIONING ENGINEER CURRENT USE OF ASPIRIN] Onset: 09-07-2022 Episodic Other aftercare (1 source) Other prison (current) drug therapy; Translations: [OTH PENITENTIARY CURRENT DRUG THERAPY] Onset: 09-07-2022 Episodic Other [...] ALT [Catalytic activity/Vol] 10 U/L Normal 7-52 [facility] Comment on above: Performed By: #### P TT, BMP, HS TROP, PT, CK, BNP, DIFF CBC #### [facility] [address] [place] [address] [place] Albumin [Mass/volume] in Ser um or Plasma by Bromocresol green (BCG) dye binding methoOrdered By: iVjay Aguilar on 03-09-2024 Albumin BCG dye [Mass/Vol] 2.7 g/dL 3.5-5.7 [facility] Alkaline phosphatase [Enzyma tic activity/volume] in Serum or PlasmaOrdered By: Vijay Aguilar on 03-09-2024 ALP [Catalytic activity/Vol] 50 U/L Normal 34-104 [facility] Comment on above: Performed By: #### P TT, BMP, HS TROP, PT, CK, BNP, DIFF CBC #### [facility] [address] [place] [id number] [place] Anisocytosis [Presence] in B lood by Light microscopyOrdered By: Roslyn Townsend on 03-09-2024 Anisocytosis Ql (Bld) Slight Normal [facility] Comment on above: Performed By: #### P TT, BMP, HS TROP, PT, CK, BNP, DIFF CBC #### [facility] [address] [place] [id number] [place] Aspartate aminotransferase [ Enzymatic activity/volume] in Serum or PlasmaOrdered By: Vijay Aguilar on 03-09-2024 AST [Catalytic activity/Vol] 11 U/L Low 13-39 [facility] Comment on above: Performed By: #### P TT, BMP, HS TROP, PT, CK, BNP, DIFF CBC #### [facility] [address] [place] [address] [place] Basophils Auto (Bld) [#/Vol] Ordered By: Roslyn Townsend on 03-09-2024 Basophils (Bld) [#/Vol] N/A [facility] Basophils/100 WBC Auto (Bld) Ordered By: Roslyn Townsend on 03-09-2024 Basophils/100 WBC (Bld) N/A [facility] Basophils/100 leukocytes in Blood by Manual countOrdered By: Roslyn Townsend on 03-09-2024 Basophils/100 WBC (Bld) 0 % Normal 0-2 [facility] Comment on above: Performed By: #### P TT, BMP, HS TROP, PT, CK, BNP, DIFF CBC #### [facility] [address] [place] [address] Bilirubin.total [Mass/volume ] in Serum or PlasmaOrdered By: Vijay Aguilar on 03-09-2024 Bilirubin [Mass/Vol] 0.5 mg/dL Normal 0.3-1.0 [facility] Comment on above: Performed By: #### P TT, BMP, HS TROP, PT, CK, BNP, DIFF CBC #### [facility] [address] [place] [address] [place] Calcium [Mass/volume] in Ser um or PlasmaOrdered By: Vijay Aguilra on 03-09-2024 Calcium [Mass/Vol] 7.7 mg/dL Low 8.6-10.3 [facility] Comment on above: Performed By: #### P TT, BMP, HS TROP, PT, CK, BNP, DIFF CBC #### [place] [address] [place] Carbon dioxide, total [Moles /volume] in Serum or PlasmaOrdered By: Vijay Aguilar on 03-09-2024 CO2 [Moles/Vol] 19.1 mmol/L Low 21.0-31.0 [facility] Comment on above: Performed By: #### P TT, BMP, HS TROP, PT, CK, BNP, DIFF CBC #### [address] Chloride [Moles/volume] in S dustin or PlasmaOrdered By: Vijay Aguilar on 03-09-2024 Chloride [Moles/Vol] 107 mmol/L Normal 98-107 [facility] Comment on above: Performed By: #### P TT, BMP, HS TROP, PT, CK, BNP, DIFF CBC #### [facility] [address] Comprehensive Metabolic Pane melvin 03-09-2024 Albumin [Mass/Vol] 2.7 g/dL Low 3.5-5.7 [facility] Comment on above: Performed By: #### P TT, BMP, HS TROP, PT, CK, BNP, DIFF CBC #### [address] Creatinine Clr Calc Pharmacy 59.85 Normal [facility] Comment on above: Performed By: #### P TT, BMP, HS TROP, PT, CK, BNP, DIFF CBC #### [address] GFR/1.73 sq M.predicted MDRD (S/P/Bld) [Vol rate/Area] mL/min/{1.73_m2} Normal [facility] Comment on above: Performed By: #### P TT, BMP, HS TROP, PT, CK, BNP, DIFF CBC #### [address] Creatinine [Mass/volume] in Serum or PlasmaOrdered By: Vijay Aguilar on 03-09-2024 Creatinine [Mass/Vol] 1.05 mg/dL Normal 0.70-1.[address] [facility] Comment on above: Performed By: #### P TT, BMP, HS TROP, PT, CK, BNP, DIFF CBC #### [facility] [address] [place] [address] Diff and CBCon 03-09-2024 Macrocytosis Slight Normal [facility] Comment on above: Performed By: #### P TT, BMP, HS TROP, PT, CK, BNP, DIFF CBC #### [address] Mean Corpuscular HGB Conc 35.4 g/dL Normal 32.5-35.6 [facility] Comment on above: Performed By: #### P TT, BMP, HS TROP, PT, CK, BNP, DIFF CBC #### [address] Other Cell Type 5 % High 0-0 [facility] Comment on above: Result Comment: PLAS MACYTOID LYMPHOCYTE Performed By: #### P TT, BMP, HS TROP, PT, CK, BNP, DIFF CBC #### [address] Platelet Estimate Decreased Normal Normal [facility] Comment on above: Performed By: #### P TT, BMP, HS TROP, PT, CK, BNP, DIFF CBC #### [address] Platelet Morphology Normal Normal Normal [facility] Comment on above: Result Comment: PERF ORMED BY: [place] [address] PATHOLOGIST PIPELINE TECHNICIAN OTTO HARLEY M.D. Performed By: #### P TT, BMP, HS TROP, PT, CK, BNP, DIFF CBC #### [address] Poikilocytosis Slight Normal [facility] Comment on above: Performed By: #### P TT, BMP, HS TROP, PT, CK, BNP, DIFF CBC #### [address] Rouleaux Moderate Normal [facility] Comment on above: Performed By: #### P TT, BMP, HS TROP, PT, CK, BNP, DIFF CBC #### [address] Eosinophils Auto (Bld) [#/Vo l]Ordered By: Roslyn Townsend on 03-09-2024 Eosinophils (Bld) [#/Vol] N/A [facility] Eosinophils/100 WBC Auto (Bl d)Ordered By: Roslyn Townsend on 03-09-2024 Eosinophils/100 WBC (Bld) N/A [facility] Eosinophils/100 leukocytes i n Blood by Manual countOrdered By: Roslyn Townsend on 03-09-2024 Eosinophils/100 WBC (Bld) 3 % Normal 1-3 [facility] Comment on above: Performed By: #### P TT, BMP, HS TROP, PT, CK, BNP, DIFF CBC #### [facility] [address] Erythrocyte distribution wid th [Ratio] by Automated countOrdered By: Roslyn Townsend on 03-09-2024 Erythrocyte distribution width (RBC) [Ratio] 20.7 % High 12.0-14.8 [facility] Comment on above: Performed By: #### P TT, BMP, HS TROP, PT, CK, BNP, DIFF CBC #### [facility] [address] Erythrocytes [#/volume] in B lood by Automated countOrdered By: Roslyn Townsend on 03-09-2024 RBC (Bld) [#/Vol] 2.68 10*6/uL Low 3.90-5.60 [facility] Comment on above: Performed By: #### P TT, BMP, HS TROP, PT, CK, BNP, DIFF CBC #### [facility] [address] [place] [address] Glucose [Mass/volume] in Ser um or PlasmaOrdered By: Vijay Aguilar on 03-09-2024 Glucose [Mass/Vol] 97 mg/dL Normal 70-100 [facility] Comment on above: ADA recommended refe rence rangeRandom Glucose Reference Range is dependent on time and content of last meal. Glucose of more than 200 mg/dL in a nonstressed, ambulatory subject supports the diagnosis of Diabetes Mellitus. Result Comment: [place] om Glucose Reference Range is dependent on time and content of last meal. Glucose of more than 200 mg/dL in a nonstressed, ambulatory subject supports the diagnosis of Diabetes Mellitus. ADA recommended reference range Performed By: #### P TT, BMP, HS TROP, PT, CK, BNP, DIFF CBC #### [facility] [address] Hematocrit [Volume Fraction] of Blood by Automated countOrdered By: Roslyn Townsend on 03-09-2024 Hematocrit (Bld) [Volume fraction] 26.1 % Low 38.8-50.0 [facility] Comment on above: Performed By: #### P TT, BMP, HS TROP, PT, CK, BNP, DIFF CBC #### [facility] [address] Hemoglobin [Mass/volume] in BloodOrdered By: Roslyn Townsend on 03-09-2024 Hemoglobin (Bld) [Mass/Vol] 9.2 g/dL Low 13.0-17.0 [facility] Comment on above: Performed By: #### P TT, BMP, HS TROP, PT, CK, BNP, DIFF CBC #### [facility] [address] [place] 03-09-2024 L Specimen: [id number] Re ceived: 03/09/24 Status: SOUT Req Num: [id number] Spec Type: Impression Subm Dr: Vijay Aguilar MD Tissues: PATHPER Procedures: PATHREVIEW Age/ Patient Sex Location Account Attending Physician Neil Wilcox 78/M [id number] Vijay Aguilar MD SPEC NUM: [id number] RECD: 03/09/24 STATUS: SOUT REQ NUM: [id number] MOE: 03/09/24 DR: Vijay Aguilar MD ENTERED: 03/09/[address] [facility] [address]: SPEC TYPE: Impression DEPT: SD ORDERED: PATHREVIEW ORDERED: PATHREVIEW Pathologist Review Abnormal CBC for peripheral blood smear review: -Pancytopenia with moderate leukopenia and mild neutropenia -Mild anemia of normocytic type, including moderate anisocytosis with few microcytes and few macrocytes -No obvious morphological abnormality of the leukocyte population, except occasional plasmacytoid lymphocytes, including 1 binucleated:form -Moderate thrombocytopenia Comment: -There is recent bone marrow biopsy concerning for multiple myeloma, and is also probably at least partly the cause of progressing pancytopenia CPT: 82213 CBC Date Time Test Result Flag (u) Normal Range 03/06/24 0753 Band 1 0-5 % 03/08/24 0551 Neut % (Auto) 57.3 . % Lymp % (Auto) 38.4 . % Tyrrell % (Auto) 1.0 . % Eos % (Auto) 0.1 . % Baso % (Auto) 3.2 . % NRBC% 0.3 0-0.5 /100 WBC Specimen: [id number] Received: 03/09/24 Status: URVASHI Miranda Num: [id number] Spec Type: Impression Subm Dr: Vijay Aguilar MD Tissues: PATHPER Procedures: PATHREVIEW Patient: JeriNeil sainz [id number] (Continued) Specimen: [id number] Received: 03/09/24-1013 (Continued) CBC (Continued) Signed (signature on file) Chaitanya Paulino MD 03/11/24 1130 Specimen: [id number] Received: 03/09/24-1013 Status: URVASHI Castillogeorgette Num: [id number] Spec Type: Impression Subm Dr: Vijay Aguilar MD Tissues: PATHPER Procedures: PATHREVIEW Patient: JeriNeil [id number] (Continued) Specimen: [id number] Received: 03/09/24-1013 (Continued) CBC (Continued) Neut # (Auto) 1.1 L 1.8-7.7 x10E3/uL Lymph # (Auto) 0.7 L 1.00-4.8 x10E3/uL Tyrrell # (Auto) 0.0 0.0-0.8 x10E3/uL Eos # (Auto) 0.0 0.0-0.45 x10E3/uL Baso# (Auto) 0.1 0.0-0.2 x10E3/uL 03/09/24 0557 WBC 2.8 L 4.1-10.5 X10E3/uL RBC 2.68 L 3.90-5.60 X10E6/uL HGB 9.2 L 13.0-17.0 g/dL HCT 26.1 L 38.8-50.0 % MCV 97.2 83.5-101 fl MCH 34.4 27.5-35.2 pg MCHC 35.4 32.5-35.6 g/dL RDW 20.7 H 12.0-14.8 % Plt 62 L 150-450 x10E3/uL MPV 7.4 6.6-10.1 fl Seg 35 L 50-70 % Lymph 57 H 18-42 % Tyrrell 0 L 2-11 % Eos 3 1-3 % Baso 0 0-2 % Other Cell Type 5 H 0-0 % PLASMACYTOID LYMPHOCYTE Poik Slight [place]iso Slight Macro Slight Rouleaux Moderate Plt Est Decreased Normal Plt Morphology Normal Normal Specimen: [id number] Received: 03/09/24-1013 Status: URVASHI Castillogeorgette Num: [id number] Spec Type: Impression Subm Dr: Vijay Aguilar MD Tissues: PATHPER Procedures: PATHREVIEW Patient: Neil Wilcox [id number] (Continued) Signed (signature on file) Chin-Emilio Paulino MD 03/11/24 1130 Normal [facility] Leukocytes [#/volume] correc myrtle for nucleated erythrocytes in Blood by Automated counOrdered By: Roslyn Townsend on 03-09-2024 WBC corrected for nucl RBC Auto (Bld) [#/Vol] 2.8 10*3/uL 4.1-10.5 [facility] Leukocytes [#/volume] in Blo od by Automated countOrdered By: Roslyn Townsend on 03-09-2024 WBC (Bld) [#/Vol] 2.8 10*3/uL Low 4.1-10.5 [facility] Comment on above: Performed By: #### P TT, BMP, HS TROP, PT, CK, BNP, DIFF CBC #### [facility] [address] Lymphocytes Auto (Bld) [#/Vo l]Ordered By: Roslyn Townsend on 03-09-2024 Lymphocytes (Bld) [#/Vol] N/A [facility] Lymphocytes/100 WBC Auto (Bl d)Ordered By: Roslyn Townsend on 03-09-2024 Lymphocytes/100 WBC (Bld) N/A [facility] Lymphocytes/100 leukocytes i n Blood by Manual countOrdered By: Roslyn Townsend on 03-09-2024 Lymphocytes/100 WBC (Bld) 57 % High 18-42 [facility] Comment on above: Performed By: #### P TT, BMP, HS TROP, PT, CK, BNP, DIFF CBC #### [facility] [address] MCH [Entitic mass] by Automa myrtle countOrdered By: Roslyn Townsend on 03-09-2024 MCH (RBC) [Entitic mass] 34.4 pg Normal 27.5-35.2 [facility] Comment on above: Performed By: #### P TT, BMP, HS TROP, PT, CK, BNP, DIFF CBC #### [facility] [address] [place] [address] MCHC Auto (RBC) [Mass/Vol]Or dered By: Roslyn Townsend on 03-09-2024 MCHC (RBC) [Mass/Vol] 35.4 g/dL 32.5-35.[address] [facility] MCV [Entitic volume] by Auto mated countOrdered By: Roslyn Townsend on 03-09-2024 MCV (RBC) [Entitic vol] 97.2 fL Normal 83.5-101 [facility] Comment on above: Performed By: #### P TT, BMP, HS TROP, PT, CK, BNP, DIFF CBC #### [address] Macrocytes LM Ql (Bld)Ordere d By: Roslyn Townsend on 03-09-2024 Macrocytes Ql (Bld) Slight [facility] Magnesium [Mass/volume] in S dustin or PlasmaOrdered By: Vijay Aguilar on 03-09-2024 Magnesium [Mass/Vol] 1.7 mg/dL Low 1.9-2.7 [facility] Comment on above: Result Comment: PERF ORMED BY: [place] [address] PATHOLOGIST PIPELINE TECHNICIAN OTTO HARLEY M.D. Performed By: #### P TT, BMP, HS TROP, PT, CK, BNP, DIFF CBC #### [facility] [address] Manual blood segmented neutr ophils/100 leukocytesOrdered By: Roslyn Townsend on 03-09-2024 Segmented neutrophils/100 WBC (Bld) 35 % Low 50-70 [facility] Comment on above: Performed By: #### P TT, BMP, HS TROP, PT, CK, BNP, DIFF CBC #### [facility] [address] [place] [address] [place] Monocytes Auto (Bld) [#/Vol] Ordered By: Roslyn Townsend on 03-09-2024 Monocytes (Bld) [#/Vol] N/A [facility] Monocytes/100 WBC Auto (Bld) Ordered By: Rosyln Townsend on 03-09-2024 Monocytes/100 WBC (Bld) N/A [facility] Monocytes/100 leukocytes in Blood by Manual countOrdered By: Roslyn Townsend on 03-09-2024 Monocytes/100 WBC (Bld) 0 % Low 2-11 [facility] Comment on above: Performed By: #### P TT, BMP, HS TROP, PT, CK, BNP, DIFF CBC #### [facility] [address] [place] [address] [place] Neutrophils Auto (Bld) [#/Vo l]Ordered By: Roslyn Townsend on 03-09-2024 Neutrophils (Bld) [#/Vol] N/A [facility] Neutrophils/100 WBC Auto (Bl d)Ordered By: Roslyn Townsend on 03-09-2024 Neutrophils/100 WBC (Bld) N/A [facility] No Panel InformationOrdered By: Vijay Aguilar on 03-09-2024 Estimated GFR (CKD-EPI) > 60.0 mL/Min [facility] Creatinine Clearance (Chem 59.85 [facility] Nucleated erythrocytes [Pres ence] in Blood by Automated countOrdered By: Roslyn Townsend on 03-09-2024 Nucleated RBC Auto Ql (Bld) N/A [facility] Platelet adequacy [Presence] in Blood by Light microscopyOrdered By: Roslyn Townsend on 03-09-2024 Platelets LM Ql (Bld) Decreased Normal [facility] Platelet mean volume [Entiti c volume] in Blood by Automated countOrdered By: Roslyn Townsend on 03-09-2024 Platelet mean volume (Bld) [Entitic vol] 7.4 fL Normal 6.6-10.1 [facility] Comment on above: Performed By: #### P TT, BMP, HS TROP, PT, CK, BNP, DIFF CBC #### [facility] [address] Platelet morphology finding [Identifier] in BloodOrdered By: Roslyn Townsend on 03-09-2024 Platelet morphology finding Nom (Bld) Normal Normal [facility] Platelets [#/volume] in Bloo d by Automated countOrdered By: Roslyn Townsend on 03-09-2024 Platelets (Bld) [#/Vol] 62 10*3/uL Low 150-450 [facility] Comment on above: Performed By: #### P TT, BMP, HS TROP, PT, CK, BNP, DIFF CBC #### [facility] [address] [place] [address] [place] Poikilocytosis [Presence] in Blood by Light microscopyOrdered By: Roslyn Townsend on 03-09-2024 Poikilocytosis LM Ql (Bld) Slight [facility] Potassium [Moles/volume] in Serum or PlasmaOrdered By: Vijay Aguilar on 03-09-2024 Potassium [Moles/Vol] 3.3 mmol/L Low 3.5-5.[address] [facility] Comment on above: Performed By: #### P TT, BMP, HS TROP, PT, CK, BNP, DIFF CBC #### [facility] [address] [place] [address] [place] Protein [Mass/volume] in Ser um or PlasmaOrdered By: Vijay Aguilar on 03-09-2024 Protein [Mass/Vol] 7.8 g/dL Normal 6.4-8.9 [facility] Comment on above: Performed By: #### P TT, BMP, HS TROP, PT, CK, BNP, DIFF CBC #### [facility] [address] [place] [address] RBC morphologyOrdered By: Kathleen Townsend on 03-09-2024 RBC morphology finding Nom (Bld) N/A [facility] Rouleaux detectionOrdered By : Roslyn Townsend on 03-09-2024 Rouleaux LM Ql (Bld) Moderate [facility] Serum globulin measurement b y calculation (mass/volume)Ordered By: Vijay Aguilar on 03-09-2024 Globulin (S) [Mass/Vol] 5.1 g/dL [facility] Comment on above: Performed By: #### P TT, BMP, HS TROP, PT, CK, BNP, DIFF CBC #### [facility] [address] [place] [address] Serum or plasma albumin/glob ulin mass ratioOrdered By: Vijay Aguilar on 03-09-2024 Albumin/Globulin [Mass ratio] 0.5 {ratio} [facility] Comment on above: Performed By: #### P TT, BMP, HS TROP, PT, CK, BNP, DIFF CBC #### [facility] [address] [place] [address] Serum or plasma anion gap de terminationOrdered By: Vijay Aguilar on 03-09-2024 Anion gap [Moles/Vol] 13.2 mmol/L Normal 6.0-15.0 [facility] Comment on above: Performed By: #### P TT, BMP, HS TROP, PT, CK, BNP, DIFF CBC #### [facility] [address] [place] [address] Sodium [Moles/volume] in Ser um or PlasmaOrdered By: Vijay Aguilar on 03-09-2024 Sodium [Moles/Vol] 136 mmol/L Normal 136-145 [facility] Comment on above: Performed By: #### P TT, BMP, HS TROP, PT, CK, BNP, DIFF CBC #### [facility] [address] [place] [address] Urea nitrogen [Mass/volume] in Serum or PlasmaOrdered By: Vijay Lauren on 06-16-2024 Urea nitrogen [Mass/Vol] 18 mg/dL Normal 7-25 [facility] Comment on above: Performed By: #### P TT, BMP, HS TROP, PT, CK, BNP, DIFF CBC #### [facility] [address] WBC other/100 WBC Manual cnt (Bld)Ordered By: Roslyn Townsend on 03-09-2024 WBC other/100 WBC (Bld) 5 % 0-0 [facility] Comment on above: PLASMACYTOID LYMPHOC YTE Basic Metabolic Panelon 02-22 Anion gap [Moles/Vol] 13.2 mmol/L Normal 6.0-15.0 [facility] Comment on above: Performed By: #### P TT, BMP, HS TROP, PT, CK, BNP, DIFF CBC #### [address] Calcium [Mass/Vol] 7.9 mg/dL Low 8.6-10.3 [facility] Comment on above: Performed By: #### P TT, BMP, HS TROP, PT, CK, BNP, DIFF CBC #### [address] Chloride [Moles/Vol] 106 mmol/L Normal 98-107 [facility] Comment on above: Performed By: #### P TT, BMP, HS TROP, PT, CK, BNP, DIFF CBC #### [address] CO2 [Moles/Vol] 18.6 mmol/L Low 21.0-31.0 [facility] Comment on above: Performed By: #### P TT, BMP, HS TROP, PT, CK, BNP, DIFF CBC #### [address] Creatinine [Mass/Vol] 1.01 mg/dL Normal 0.70-1.30 [facility] Comment on above: Performed By: #### P TT, BMP, HS TROP, PT, CK, BNP, DIFF CBC #### [place] [address] [place] Creatinine Clr Calc Pharmacy 62.22 Normal [facility] Comment on above: Result Comment: PERF ORMED BY: [place] [address] PATHOLOGIST PIPELINE TECHNICIAN OTTO HARLEY M.D. Performed By: #### P TT, BMP, HS TROP, PT, CK, BNP, DIFF CBC #### [address] GFR/1.73 sq M.predicted MDRD (S/P/Bld) [Vol rate/Area] mL/min/{1.73_m2} Normal [facility] Comment on above: Performed By: #### P TT, BMP, HS TROP, PT, CK, BNP, DIFF CBC #### [address] Glucose [Mass/Vol] 136 mg/dL High 70-100 [facility] Comment on above: Result Comment: [facility] Glucose Reference Range is dependent on time and content of last meal. Glucose of more than 200 mg/dL in a nonstressed, ambulatory subject supports the diagnosis of Diabetes Mellitus. ADA recommended reference range Performed By: #### P TT, BMP, HS TROP, PT, CK, BNP, DIFF CBC #### [address] Potassium [Moles/Vol] 3.8 mmol/L Normal 3.5-5.1 [facility] Comment on above: Performed By: #### P TT, BMP, HS TROP, PT, CK, BNP, DIFF CBC #### [address] Sodium [Moles/Vol] 134 mmol/L Low 136-145 [facility] Comment on above: Performed By: #### P TT, BMP, HS TROP, PT, CK, BNP, DIFF CBC #### [address] Urea nitrogen [Mass/Vol] 21 mg/dL Normal 7-25 [facility] Comment on above: Performed By: #### P TT, BMP, HS TROP, PT, CK, BNP, DIFF CBC #### [address] Complete Blood Count Auto Di ffon 03-08-2024 Basophils (Bld) [#/Vol] 0.1 10*3/uL Normal 0.0-0.2 [facility] Comment on above: Result Comment: PERF ORMED BY: [place] [address] PATHOLOGIST PIPELINE TECHNICIAN OTTO HARLEY M.D. Performed By: #### P TT, BMP, HS TROP, PT, CK, BNP, DIFF CBC #### [address] Basophils/100 WBC (Bld) 3.2 % Normal . [facility] Comment on above: Performed By: #### P TT, BMP, HS TROP, PT, CK, BNP, DIFF CBC #### [address] Eosinophils (Bld) [#/Vol] 0.0 10*3/uL Normal 0.0-0.45 [facility] Comment on above: Performed By: #### P TT, BMP, HS TROP, PT, CK, BNP, DIFF CBC #### [address] Eosinophils/100 WBC (Bld) 0.1 % Normal . [facility] Comment on above: Performed By: #### P TT, BMP, HS TROP, PT, CK, BNP, DIFF CBC #### [address] Erythrocyte distribution width (RBC) [Ratio] 20.9 % High 12.0-14.8 [facility] Comment on above: Performed By: #### P TT, BMP, HS TROP, PT, CK, BNP, DIFF CBC #### [address] Hematocrit (Bld) [Volume fraction] 27.2 % Low 38.8-50.0 [facility] Comment on above: Performed By: #### P TT, BMP, HS TROP, PT, CK, BNP, DIFF CBC #### [place] [address] Hemoglobin (Bld) [Mass/Vol] 9.5 g/dL Low 13.0-17.0 [facility] Comment on above: Performed By: #### P TT, BMP, HS TROP, PT, CK, BNP, DIFF CBC #### [address] Lymphocytes (Bld) [#/Vol] 0.7 10*3/uL Low 1.00-4.8 [facility] Comment on above: Performed By: #### P TT, BMP, HS TROP, PT, CK, BNP, DIFF CBC #### [address] Lymphocytes/100 WBC (Bld) 38.4 % Normal . [facility] Comment on above: Performed By: #### P TT, BMP, HS TROP, PT, CK, BNP, DIFF CBC #### [address] MCH (RBC) [Entitic mass] 33.9 pg Normal 27.5-35.2 [facility] Comment on above: Performed By: #### P TT, BMP, HS TROP, PT, CK, BNP, DIFF CBC #### [address] MCV (RBC) [Entitic vol] 97.4 fL Normal 83.5-101 [facility] Comment on above: Performed By: #### P TT, BMP, HS TROP, PT, CK, BNP, DIFF CBC #### [address] Mean Corpuscular HGB Conc 34.8 g/dL Normal 32.5-35.6 [facility] Comment on above: Performed By: #### P TT, BMP, HS TROP, PT, CK, BNP, DIFF CBC #### [address] Monocytes (Bld) [#/Vol] 0.0 10*3/uL Normal 0.0-0.8 [facility] Comment on above: Performed By: #### P TT, BMP, HS TROP, PT, CK, BNP, DIFF CBC #### [address] Monocytes/100 WBC (Bld) 1.0 % Normal . [facility] Comment on above: Performed By: #### P TT, BMP, HS TROP, PT, CK, BNP, DIFF CBC #### [address] Neutrophils (Bld) [#/Vol] 1.1 10*3/uL Low 1.8-7.7 [facility] Comment on above: Performed By: #### P TT, BMP, HS TROP, PT, CK, BNP, DIFF CBC #### [address] Neutrophils/100 WBC (Bld) 57.3 % Normal . [facility] Comment on above: Performed By: #### P TT, BMP, HS TROP, PT, CK, BNP, DIFF CBC #### [address] NRBC% 0.3 /100{WBC} Normal 0-0.5 [facility] Comment on above: Performed By: #### P TT, BMP, HS TROP, PT, CK, BNP, DIFF CBC #### [address] Platelet mean volume (Bld) [Entitic vol] 7.3 fL Normal 6.6-10.1 [facility] Comment on above: Performed By: #### P TT, BMP, HS TROP, PT, CK, BNP, DIFF CBC #### [address] Platelets (Bld) [#/Vol] 59 10*3/uL Low 150-450 [facility] Comment on above: Performed By: #### P TT, BMP, HS TROP, PT, CK, BNP, DIFF CBC #### [address] RBC (Bld) [#/Vol] 2.79 10*6/uL Low 3.90-5.60 [facility] Comment on above: Performed By: #### P TT, BMP, HS TROP, PT, CK, BNP, DIFF CBC #### [address] WBC (Bld) [#/Vol] 1.8 10*3/uL Low 4.1-10.5 [facility] Comment on above: Performed By: #### P TT, BMP, HS TROP, PT, CK, BNP, DIFF CBC #### [address] Basic Metabolic Panelon 06- Anion gap [Moles/Vol] 12.4 mmol/L Normal 6.0-15.0 [facility] Comment on above: Performed By: #### P TT, BMP, HS TROP, PT, CK, BNP, DIFF CBC #### [address] Calcium [Mass/Vol] 8.3 mg/dL Low 8.6-10.3 [facility] Comment on above: Performed By: #### P TT, BMP, HS TROP, PT, CK, BNP, DIFF CBC #### [address] Chloride [Moles/Vol] 107 mmol/L Normal 98-107 [facility] Comment on above: Performed By: #### P TT, BMP, HS TROP, PT, CK, BNP, DIFF CBC #### [address] CO2 [Moles/Vol] 20.5 mmol/L Low 21.0-31.0 [facility] Comment on above: Performed By: #### P TT, BMP, HS TROP, PT, CK, BNP, DIFF CBC #### [address] Creatinine [Mass/Vol] 1.02 mg/dL Normal 0.70-1.30 [facility] Comment on above: Performed By: #### P TT, BMP, HS TROP, PT, CK, BNP, DIFF CBC #### [address] Creatinine Clr Calc Pharmacy 61.61 Normal [facility] Comment on above: Result Comment: PERF ORMED BY: [place] [address] PATHOLOGIST PIPELINE TECHNICIAN OTTO HARLEY M.D. Performed By: #### P TT, BMP, HS TROP, PT, CK, BNP, DIFF CBC #### [address] GFR/1.73 sq M.predicted MDRD (S/P/Bld) [Vol rate/Area] mL/min/{1.73_m2} Normal [facility] Comment on above: Performed By: #### P TT, BMP, HS TROP, PT, CK, BNP, DIFF CBC #### [address] Glucose [Mass/Vol] 92 mg/dL Normal 70-100 [facility] Comment on above: Result Comment: [place] Glucose Reference Range is dependent on time and content of last meal. Glucose of more than 200 mg/dL in a nonstressed, ambulatory subject supports the diagnosis of Diabetes Mellitus. ADA recommended reference range Performed By: #### P TT, BMP, HS TROP, PT, CK, BNP, DIFF CBC #### [address] Potassium [Moles/Vol] 3.9 mmol/L Normal 3.5-5.1 [facility] Comment on above: Performed By: #### P TT, BMP, HS TROP, PT, CK, BNP, DIFF CBC #### [address] Sodium [Moles/Vol] 136 mmol/L Normal 136-145 [facility] Comment on above: Performed By: #### P TT, BMP, HS TROP, PT, CK, BNP, DIFF CBC #### [address] Urea nitrogen [Mass/Vol] 17 mg/dL Normal 7-25 [facility] Comment on above: Performed By: #### P TT, BMP, HS TROP, PT, CK, BNP, DIFF CBC #### [address] Magnesiumon 03-07-2024 Magnesium [Mass/Vol] 1.6 mg/dL Low 1.9-2.7 [facility] Comment on above: Result Comment: PERF ORMED BY: [place] [address] PATHOLOGIST PIPELINE TECHNICIAN OTTO HARLEY M.D. Performed By: #### P TT, BMP, HS TROP, PT, CK, BNP, DIFF CBC #### [address] Scan and CBCon 03-07-2024 Anisocytosis Ql (Bld) Marked Normal [facility] Comment on above: Performed By: #### P TT, BMP, HS TROP, PT, CK, BNP, DIFF CBC #### [address] Basophils (Bld) [#/Vol] 0.0 10*3/uL Normal 0.0-0.2 [facility] Comment on above: Performed By: #### P TT, BMP, HS TROP, PT, CK, BNP, DIFF CBC #### [address] Basophils/100 WBC (Bld) 0.3 % Normal . [facility] Comment on above: Performed By: #### P TT, BMP, HS TROP, PT, CK, BNP, DIFF CBC #### [address] Eosinophils (Bld) [#/Vol] 0.2 10*3/uL Normal 0.0-0.45 [facility] Comment on above: Performed By: #### P TT, BMP, HS TROP, PT, CK, BNP, DIFF CBC #### [address] Eosinophils/100 WBC (Bld) 10.7 % Normal . [facility] Comment on above: Performed By: #### P TT, BMP, HS TROP, PT, CK, BNP, DIFF CBC #### [place] [address] [place] Erythrocyte distribution width (RBC) [Ratio] 21.1 % High 12.0-14.8 [facility] Comment on above: Performed By: #### P TT, BMP, HS TROP, PT, CK, BNP, DIFF CBC #### [address] Hematocrit (Bld) [Volume fraction] 26.4 % Low 38.8-50.0 [facility] Comment on above: Performed By: #### P TT, BMP, HS TROP, PT, CK, BNP, DIFF CBC #### [address] Hemoglobin (Bld) [Mass/Vol] 9.3 g/dL Low 13.0-17.0 [facility] Comment on above: Performed By: #### P TT, BMP, HS TROP, PT, CK, BNP, DIFF CBC #### [address] Lymphocytes (Bld) [#/Vol] 1.0 10*3/uL Normal 1.00-4.8 [facility] Comment on above: Performed By: #### P TT, BMP, HS TROP, PT, CK, BNP, DIFF CBC #### [address] Lymphocytes/100 WBC (Bld) 49.0 % Normal . [facility] Comment on above: Performed By: #### P TT, BMP, HS TROP, PT, CK, BNP, DIFF CBC #### [address] MCH (RBC) [Entitic mass] 34.3 pg Normal 27.5-35.2 [facility] Comment on above: Performed By: #### P TT, BMP, HS TROP, PT, CK, BNP, DIFF CBC #### [address] MCV (RBC) [Entitic vol] 97.4 fL Normal 83.5-101 [facility] Comment on above: Performed By: #### P TT, BMP, HS TROP, PT, CK, BNP, DIFF CBC #### [address] Mean Corpuscular HGB Conc 35.2 g/dL Normal 32.5-35.6 [facility] Comment on above: Performed By: #### P TT, BMP, HS TROP, PT, CK, BNP, DIFF CBC #### [address] Monocytes (Bld) [#/Vol] 0.0 10*3/uL Normal 0.0-0.8 [facility] Comment on above: Performed By: #### P TT, BMP, HS TROP, PT, CK, BNP, DIFF CBC #### [address] Monocytes/100 WBC (Bld) 1.2 % Normal . [facility] Comment on above: Performed By: #### P TT, BMP, HS TROP, PT, CK, BNP, DIFF CBC #### [address] Neutrophils (Bld) [#/Vol] 0.8 10*3/uL Low 1.8-7.7 [facility] Comment on above: Performed By: #### P TT, BMP, HS TROP, PT, CK, BNP, DIFF CBC #### [address] Neutrophils/100 WBC (Bld) 38.8 % Normal . [facility] Comment on above: Performed By: #### P TT, BMP, HS TROP, PT, CK, BNP, DIFF CBC #### [address] NRBC% 0.5 /100{WBC} Normal 0-0.5 [facility] Comment on above: Performed By: #### P TT, BMP, HS TROP, PT, CK, BNP, DIFF CBC #### [address] Platelet Estimate Decreased Normal Normal [facility] Comment on above: Performed By: #### P TT, BMP, HS TROP, PT, CK, BNP, DIFF CBC #### [address] Platelet mean volume (Bld) [Entitic vol] 7.1 fL Normal 6.6-10.1 [facility] Comment on above: Performed By: #### P TT, BMP, HS TROP, PT, CK, BNP, DIFF CBC #### [address] Platelet Morphology Normal Normal Normal [facility] Comment on above: Result Comment: PERF ORMED BY: [place] [address] PATHOLOGIST PIPELINE TECHNICIAN OTTO HARLEY M.D. Performed By: #### P TT, BMP, HS TROP, PT, CK, BNP, DIFF CBC #### [address] Platelets (Bld) [#/Vol] 60 10*3/uL Low 150-450 [facility] Comment on above: Performed By: #### P TT, BMP, HS TROP, PT, CK, BNP, DIFF CBC #### [address] RBC (Bld) [#/Vol] 2.71 10*6/uL Low 3.90-5.60 [facility] Comment on above: Performed By: #### P TT, BMP, HS TROP, PT, CK, BNP, DIFF CBC #### [place] [address] [place] Rouleaux Slight Normal [facility] Comment on above: Performed By: #### P TT, BMP, HS TROP, PT, CK, BNP, DIFF CBC #### [address] WBC (Bld) [#/Vol] 2.0 10*3/uL Low 4.1-10.5 [facility] Comment on above: Performed By: #### P TT, BMP, HS TROP, PT, CK, BNP, DIFF CBC #### [address] Basic Metabolic Panelon 06- Anion gap [Moles/Vol] 13.3 mmol/L Normal 6.0-15.0 [facility] Comment on above: Performed By: #### P TT, BMP, HS TROP, PT, CK, BNP, DIFF CBC #### [address] Calcium [Mass/Vol] 8.7 mg/dL Normal 8.6-10.3 [facility] Comment on above: Performed By: #### P TT, BMP, HS TROP, PT, CK, BNP, DIFF CBC #### [address] Chloride [Moles/Vol] 109 mmol/L High 98-107 [facility] Comment on above: Performed By: #### P TT, BMP, HS TROP, PT, CK, BNP, DIFF CBC #### [address] CO2 [Moles/Vol] 20.9 mmol/L Low 21.0-31.0 [facility] Comment on above: Performed By: #### P TT, BMP, HS TROP, PT, CK, BNP, DIFF CBC #### [address] Creatinine [Mass/Vol] 1.32 mg/dL Significan t change up 0.70-1.30 [facility] Comment on above: Performed By: #### P TT, BMP, HS TROP, PT, CK, BNP, DIFF CBC #### [address] Creatinine Clr Calc Pharmacy 47.61 Normal [facility] Comment on above: Result Comment: PERF ORMED BY: [place] [address] PATHOLOGIST PIPELINE TECHNICIAN OTTO HARLEY M.D. Performed By: #### P TT, BMP, HS TROP, PT, CK, BNP, DIFF CBC #### [address] GFR/1.73 sq M.predicted MDRD (S/P/Bld) [Vol rate/Area] 55.900 mL/min/{1.73_m2} Normal [facility] Comment on above: Performed By: #### P TT, BMP, HS TROP, PT, CK, BNP, DIFF CBC #### [address] Glucose [Mass/Vol] 91 mg/dL Normal 70-100 [facility] Comment on above: Result Comment: [place] Glucose Reference Range is dependent on time and content of last meal. Glucose of more than 200 mg/dL in a nonstressed, ambulatory subject supports the diagnosis of Diabetes Mellitus. ADA recommended reference range Performed By: #### P TT, BMP, HS TROP, PT, CK, BNP, DIFF CBC #### [address] Potassium [Moles/Vol] 4.2 mmol/L Normal 3.5-5.1 [facility] Comment on above: Performed By: #### P TT, BMP, HS TROP, PT, CK, BNP, DIFF CBC #### [address] Sodium [Moles/Vol] 139 mmol/L Normal 136-145 [facility] Comment on above: Performed By: #### P TT, BMP, HS TROP, PT, CK, BNP, DIFF CBC #### [address] Urea nitrogen [Mass/Vol] 28 mg/dL High 7-25 [facility] Comment on above: Performed By: #### P TT, BMP, HS TROP, PT, CK, BNP, DIFF CBC #### [address] Diff and CBCon 03-06-2024 Anisocytosis Ql (Bld) Marked Normal [facility] Comment on above: Performed By: #### P TT, BMP, HS TROP, PT, CK, BNP, DIFF CBC #### [place] [address] [place] Eosinophils/100 WBC (Bld) 7 % High 1-3 [facility] Comment on above: Performed By: #### P TT, BMP, HS TROP, PT, CK, BNP, DIFF CBC #### [address] Erythrocyte distribution width (RBC) [Ratio] 21.8 % High 12.0-14.8 [facility] Comment on above: Performed By: #### P TT, BMP, HS TROP, PT, CK, BNP, DIFF CBC #### [address] Hematocrit (Bld) [Volume fraction] 27.3 % Low 38.8-50.0 [facility] Comment on above: Performed By: #### P TT, BMP, HS TROP, PT, CK, BNP, DIFF CBC #### [address] Hemoglobin (Bld) [Mass/Vol] 9.4 g/dL Low 13.0-17.0 [facility] Comment on above: Performed By: #### P TT, BMP, HS TROP, PT, CK, BNP, DIFF CBC #### [address] Lymphocytes/100 WBC (Bld) 65 % High 18-42 [facility] Comment on above: Performed By: #### P TT, BMP, HS TROP, PT, CK, BNP, DIFF CBC #### [address] MCH (RBC) [Entitic mass] 34.0 pg Normal 27.5-35.2 [facility] Comment on above: Performed By: #### P TT, BMP, HS TROP, PT, CK, BNP, DIFF CBC #### [address] MCV (RBC) [Entitic vol] 98.5 fL Normal 83.5-101 [facility] Comment on above: Performed By: #### P TT, BMP, HS TROP, PT, CK, BNP, DIFF CBC #### [address] Mean Corpuscular HGB Conc 34.5 g/dL Normal 32.5-35.6 [facility] Comment on above: Performed By: #### P TT, BMP, HS TROP, PT, CK, BNP, DIFF CBC #### [facility] [address] [place] [address] [place] Monocytes/100 WBC (Bld) 1 % Low 2-11 [facility] Comment on above: Performed By: #### P TT, BMP, HS TROP, PT, CK, BNP, DIFF CBC #### [facility] [address] Platelet Estimate Decreased Normal Normal [facility] Comment on above: Performed By: #### P TT, BMP, HS TROP, PT, CK, BNP, DIFF CBC #### [facility] [address] Platelet mean volume (Bld) [Entitic vol] 6.7 fL Normal 6.6-10.1 [facility] Comment on above: Result Comment: PERF ORMED BY: [place] [address] PATHOLOGIST PIPELINE TECHNICIAN OTTO HARLEY M.D. Performed By: #### P TT, BMP, HS TROP, PT, CK, BNP, DIFF CBC #### [address] Platelet Morphology Normal Normal Normal [facility] Comment on above: Result Comment: PERF ORMED BY: [place] [address] PATHOLOGIST PIPELINE TECHNICIAN OTTO HARLEY M.D. Performed By: #### P TT, BMP, HS TROP, PT, CK, BNP, DIFF CBC #### [facility] [address] [place] [address] [place] Platelets (Bld) [#/Vol] 60 10*3/uL Low 150-450 [facility] Comment on above: Performed By: #### P TT, BMP, HS TROP, PT, CK, BNP, DIFF CBC #### [facility] [address] [place] [address] [place] RBC (Bld) [#/Vol] 2.78 10*6/uL Low 3.90-5.60 [facility] Comment on above: Performed By: #### P TT, BMP, HS TROP, PT, CK, BNP, DIFF CBC #### [address] Rouleaux Slight Normal [facility] Comment on above: Performed By: #### P TT, BMP, HS TROP, PT, CK, BNP, DIFF CBC #### [address] Segmented neutrophils/100 WBC (Bld) 26 % Low 50-70 [facility] Comment on above: Performed By: #### P TT, BMP, HS TROP, PT, CK, BNP, DIFF CBC #### [address] WBC (Bld) [#/Vol] 1.9 10*3/uL Low 4.1-10.5 [facility] Comment on above: Performed By: #### P TT, BMP, HS TROP, PT, CK, BNP, DIFF CBC #### [address] Hemoglobin and Hematocriton 03-06-2024 Hematocrit (Bld) [Volume fraction] 26.0 % Low 38.8-50.0 [facility] Comment on above: Result Comment: PERF ORMED BY: [place] [address] PATHOLOGIST PIPELINE TECHNICIAN OTTO HARLEY M.D. Performed By: #### P TT, BMP, HS TROP, PT, CK, BNP, DIFF CBC #### [address] Hemoglobin (Bld) [Mass/Vol] 8.9 g/dL Low 13.0-17.0 [facility] Comment on above: Performed By: #### P TT, BMP, HS TROP, PT, CK, BNP, DIFF CBC #### [address] Hematocrit (Bld) [Volume fraction] 26.8 % Low 38.8-50.0 [facility] Comment on above: Result Comment: PERF ORMED BY: [place] [address] PATHOLOGIST PIPELINE TECHNICIAN OTTO HARLEY M.D. Performed By: #### P TT, BMP, HS TROP, PT, CK, BNP, DIFF CBC #### [facility] [address] Hemoglobin (Bld) [Mass/Vol] 9.1 g/dL Low 13.0-17.0 [facility] Comment on above: Performed By: #### P TT, BMP, HS TROP, PT, CK, BNP, DIFF CBC #### [facility] [address] Melvin 03-06-2024 L Specimen: [id number] Re ceived: 03/06/24 Status: SOUT Req Num: [id number] Spec Type: Bone Marro Subm Dr: Bertha Cuevas MD Tissues: A Bone Marrow Aspirate (Clot) (LT POST SUP ILIAC) B Bone Marrow Biopsy/Core (LT POST SUP ILIAC) Procedures: Reticulum I, Peripheral Smr, Iron/5, HE/6, Gross/Micro L4/2, Bm Smear/2, CD138/3, CD20, CD3, CD31, CD34, CD56, CD68, CYCLIN D1, E CADHERIN, Decalcification, PAS - Hemat, Bone Marrow TP, GIEMSA STN/8 Age/ Patient Sex Location Account Attending Physician Neil Wilcox 78/M [id number] Vijay Aguilar MD SPEC NUM: RECD: 03/06/24 STATUS: URVASHI REQ NUM: [id number] MOE: 03/06/24- SUBM DR: Bertha Cuevas MD ENTERED: 03/06/[address] [facility] [address]: SPEC TYPE: Bone Marro DEPT: BM ORDERED: Reticulum I, Peripheral Smr, Iron/5, HE/6, Gross/Micro L4/2, Bm Smear/2, CD138/3, CD20, CD3, CD31, CD34, CD56, CD68, CYCLIN D1, E CADHERIN, Decalcification, PAS - Hemat, Bone Marrow TP, GIEMSA STN/8 ORDERED: Reticulum I, Peripheral Smr, Iron/5, HE/6, Gross/Micro L4/2, Bm Smear/2, CD138/3, CD20, CD3, CD31, CD34, CD56, CD68, CYCLIN D1, E CADHERIN, USS/13, Decalcification, PAS - Hemat, Bone Marrow TP, GIEMSA STN/ Pathological Diagnosis A and B, left posterior superior iliac crest bone marrow biopsy and aspirate: -Normocellular marrow for the age, at least 40% -Positive for severe atypical plasmacytosis (50-60%), and at least 2 myeloma defining events (MDE: CRAB syndrome and serum free light chain (FLC) ratio >=100), consistent with plasma cell neoplasm and multiple myeloma -Apparently reduced granulopoiesis, erythropoiesis, and megakaryocytopoiesis, at least partly due to the severe obliteration of the hematopoietic activity by myeloma cells -Hypocellular aspirate smears and is limited for morphological assessment -Adequate iron storage particle, at least score 1/4 Note 1: -The concurrent diagnosis of the flow cytometry analysis is kappa monoclonal plasma cells identified in bone marrow aspirate, 39.9% of total cells, consistent with plasma cell neoplasm -The FISH analysis for MDS extended panel showing 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), and RPN1/MECOM (3q) -The FISH analysis for plasma cell myeloma panel is abnormal Specimen: [id number] Received: 03/06/24 Status: URVASHI [facility] Num: [id number] Spec Type: Bone Kylee Valle Dr: Bertha Cuevas MD Tissues: A Bone Marrow Aspirate (Clot) (LT POST SUP ILIAC) B Bone Marrow Biopsy/Core (LT POST SUP ILIAC) Procedures: Reticulum I, Peripheral Smr, Iron/5, HE/6, Gross/Micro L4/2, Bm Smear/2, CD138/3, CD20, CD3, CD31, CD34, CD56, CD68, CYCLIN D1, E CADHERIN, Decalcification, PAS - Hemat, Bone Marrow TP, GIEMSA STN/8 Patient: Neil Wilcox [id number] (Continued) Specimen: [id number] Received: 03/06/24 (Continued) Pathological Diagnosis (Continued) Signed (signature on file) Chaitanya Paulino MD 03/17/24 1856 Specimen: [id number] Received: 03/06/24 Status: URVASHI [facility] Num: [id number] Spec Type: Bone Kylee Valle Dr: Bertha Cuevas MD Tissues: A Bone Marrow Aspirate (Clot) (LT POST SUP ILIAC) B Bone Marrow Biopsy/Core (LT POST SUP ILIAC) Procedures: Reticulum I, Peripheral Smr, Iron/5, HE/6, Gross/Micro L4/2, Bm Smear/2, CD138/3, CD20, CD3, CD31, CD34, CD56, CD68, CYCLIN D1, E CADHERIN, Decalcification, PAS - Hemat, Bone Marrow TP, GIEMSA STN/8 Patient: Neil Wilcox [id number] (Continued) Specimen: [id number] Received: 03/06/24-957 (Continued) Pathological Diagnosis (Continued) -IgH (14q32) Rearrangement: Detected (Atypical) Note 2: -The cause of progressive pancytopenia during the last 4 years is compatible with the effect of the interval occurrence of multiple myeloma -The atypical plasma cells are positive for CD20, as shown by immunohistochemistry, and is also partially defined by the flow cytometry of note -Pending additional cytogenetic and other molecular study to follow Clinical Information Anemia, pancytopenia, acute renal failure. Hypercalcemia, para proteinuria, (illegible word). Myeloma. M SPIKE 3.7 Ig 3840 (Illegible word) KLS 1430 Gross Description Received are 2 formalin filled containers each labeled with the patient's name, date of and specific specimen site. A. Further (more content not included)... Normal [facility] Peripheral white blood cell differential % bands, microscopic examOrdered By: Bertha Cuevas on 03-06-2024 Band form neutrophils/100 WBC (Bld) 1 % Normal 0-5 [facility] Comment on above: Performed By: #### P TT, BMP, HS TROP, PT, CK, BNP, DIFF CBC #### [facility] [address] [place] [address] ABO/Rh Retypeon 03-05-2024 ABO/RH Recheck Result Positive Normal [facility] Comment on above: Result Comment: PERF ORMED BY: [address] [address] PATHOLOGIST PIPELINE TECHNICIAN OTTO HARLEY M.D. Activated partial thrombopla stin time (aPTT) in platelet poor plasma by coagulation aOrdered By: Trung Armenta on 03-05-2024 aPTT Coag (PPP) [Time] 29.7 s 25.1-36.5 [facility] Comment on above: A hematocrit value g reater than 55% may lead to inaccurate results in coagulation testing. Patients having hematocrit values >55% require a special collection tube for coagulation studies. Please contact the laboratory at [phone] for redraw instructions. Alanine aminotransferase [En zymatic activity/volume] in Serum or PlasmaOrdered By: Bertha Cuevas on 03-05-2024 ALT [Catalytic activity/Vol] 10 U/L Normal 7-52 [facility] Comment on above: Performed By: #### O BS-GUAIAC #### [facility] [address] [place] [address] [facility] Albumin [Mass/volume] in Ser um or Plasma by Bromocresol green (BCG) dye binding methoOrdered By: Bertha Cuevas on 03-05-2024 Albumin BCG dye [Mass/Vol] 3.1 g/dL 3.5-5.7 [facility] Alkaline phosphatase [Enzyma tic activity/volume] in Serum or PlasmaOrdered By: Bertha Cuevas on 03-05-2024 ALP [Catalytic activity/Vol] 61 U/L Normal 34-104 [facility] Comment on above: Result Comment: PERF ORMED BY: [address] [address] PATHOLOGIST PIPELINE TECHNICIAN OTTO HARLEY M.D. Performed By: #### O BS-GUAIAC #### [facility] [address] [place] [address] [facility] Anisocytosis [Presence] in B lood by Light microscopyOrdered By: Trung Armenta on 03-05-2024 Anisocytosis Ql (Bld) Moderate Normal [facility] Comment on above: Performed By: #### P TT, BMP, HS TROP, PT, CK, BNP, DIFF CBC #### [address] Aspartate aminotransferase [ Enzymatic activity/volume] in Serum or PlasmaOrdered By: Bertha Cuevas on 03-05-2024 AST [Catalytic activity/Vol] 16 U/L Normal 13-39 [facility] Comment on above: Performed By: #### O BS-GUAIAC #### [address] Automated epithelial cells c ount in urine sediment (number/area)Ordered By: Trung Armenta on 03-05-2024 Epithelial cells Auto (Urine sed) [#/Area] 0-1 [HPF] 0-2 [facility] BNP ser/plasOrdered By: Trudi Armenta on 03-05-2024 Natriuretic peptide B (Bld) [Mass/Vol] 108.0 pg/mL High 5-100 [facility] Comment on above: Result Comment: PERF ORMED BY: [place] [address] PATHOLOGIST PIPELINE TECHNICIAN OTTO HARLEY M.D. Performed By: #### P TT, BMP, HS TROP, PT, CK, BNP, DIFF CBC #### [address] Bacteria [Presence] in Urine by AutomatedOrdered By: Trung Armenta on 03-05-2024 Bacteria Auto Ql (U) None seen [HPF] None Seen [facility] Basic Metabolic Panelon 02-22 Creatinine Clr Calc Pharmacy 28.70 Normal [facility] Comment on above: Result Comment: PERF ORMED BY: [place] [address] PATHOLOGIST PIPELINE TECHNICIAN OTTO HARLEY M.D. Performed By: #### P TT, BMP, HS TROP, PT, CK, BNP, DIFF CBC #### [address] GFR/1.73 sq M.predicted MDRD (S/P/Bld) [Vol rate/Area] 30.449 mL/min/{1.73_m2} Normal [facility] Comment on above: Performed By: #### P TT, BMP, HS TROP, PT, CK, BNP, DIFF CBC #### [address] Basophils Auto (Bld) [#/Vol] Ordered By: Trung Armenta on 03-05-2024 Basophils (Bld) [#/Vol] N/A [facility] Basophils Auto (Bld) [#/Vol] Ordered By: Bertha Cuevas on 03-05-2024 Basophils (Bld) [#/Vol] N/A [facility] Basophils/100 WBC Auto (Bld) Ordered By: Trung Armenta on 03-05-2024 Basophils/100 WBC (Bld) N/A [facility] Basophils/100 WBC Auto (Bld) Ordered By: Bertha Cuevas on 03-05-2024 Basophils/100 WBC (Bld) N/A [facility] Basophils/100 leukocytes in Blood by Manual countOrdered By: Trung Armenta on 03-05-2024 Basophils/100 WBC (Bld) 0 % Normal 0-2 [facility] Comment on above: Performed By: #### P TT, BMP, HS TROP, PT, CK, BNP, DIFF CBC #### [address] Bilirubin Test strip Ql (U)O rdered By: Trung Armenta on 03-05-2024 Bilirubin Ql (U) Negative Negative [facility] Bilirubin.total [Mass/volume ] in Serum or PlasmaOrdered By: Bertha Cuevas on 03-05-2024 Bilirubin [Mass/Vol] 0.4 mg/dL Normal 0.3-1.0 [facility] Comment on above: Performed By: #### O BS-GUAIAC #### [address] Calcium [Mass/volume] in Ser um or PlasmaOrdered By: Trung Armenta on 03-05-2024 Calcium [Mass/Vol] 9.9 mg/dL Normal 8.6-10.3 [facility] Comment on above: Performed By: #### P TT, BMP, HS TROP, PT, CK, BNP, DIFF CBC #### [facility] [address] [place] [address] [place] Calcium [Mass/volume] in Ser um or PlasmaOrdered By: Bertha Cuevas on 03-05-2024 Calcium [Mass/Vol] 9.8 mg/dL Normal 8.6-10.3 [facility] Comment on above: Performed By: #### O BS-GUAIAC #### [place] [address] [place] Carbon dioxide, total [Moles /volume] in Serum or PlasmaOrdered By: Trung Armenta on 03-05-2024 CO2 [Moles/Vol] 24.0 mmol/L Normal 21.0-31.0 [facility] Comment on above: Performed By: #### P TT, BMP, HS TROP, PT, CK, BNP, DIFF CBC #### [place] [address] [place] Carbon dioxide, total [Moles /volume] in Serum or PlasmaOrdered By: Bertha Pearce on 03-05-2024 CO2 [Moles/Vol] 18.7 mmol/L Low 21.0-31.0 [facility] Comment on above: Performed By: #### O BS-GUAIAC #### [place] [address] [place] Chloride [Moles/volume] in S dustin or PlasmaOrdered By: Trung Armenta on 03-05-2024 Chloride [Moles/Vol] 103 mmol/L Normal 98-107 [facility] Comment on above: Performed By: #### P TT, BMP, HS TROP, PT, CK, BNP, DIFF CBC #### [place] [address] [place] Chloride [Moles/volume] in S dustin or PlasmaOrdered By: Bertha Cuevas on 03-05-2024 Chloride [Moles/Vol] 104 mmol/L Normal 98-107 [facility] Comment on above: Performed By: #### O BS-GUAIAC #### [address] Color of Urine by AutoOrdere d By: Trung Armenta on 03-05-2024 Color (U) Yellow Normal Yellow [facility] Comment on above: Order Comment: Name Collection Type:: Clean-Voided Midstream Performed By: #### P TT, BMP, HS TROP, PT, CK, BNP, DIFF CBC #### [address] Complete Blood Count Auto Di ffon 03-05-2024 Mean Corpuscular HGB Conc 34.6 g/dL Normal 32.5-35.6 [facility] Comment on above: Order Comment: STAT FOR BX Performed By: #### P TT, BMP, HS TROP, PT, CK, BNP, DIFF CBC #### [address] Comprehensive Metabolic Pane melvin 03-05-2024 Albumin [Mass/Vol] 3.1 g/dL Low 3.5-5.7 [facility] Comment on above: Performed By: #### O BS-GUAIAC #### [address] GFR/1.73 sq M.predicted MDRD (S/P/Bld) [Vol rate/Area] 31.659 mL/min/{1.73_m2} Normal [facility] Comment on above: Performed By: #### O BS-GUAIAC #### [address] Creatine kinase [Enzymatic a ctivity/volume] in Serum or PlasmaOrdered By: Trung Armenta on 03-05-2024 CK [Catalytic activity/Vol] 60 U/L Normal 30-223 [facility] Comment on above: Performed By: #### P TT, BMP, HS TROP, PT, CK, BNP, DIFF CBC #### [address] Creatinine [Mass/volume] in Serum or PlasmaOrdered By: Trung Armenta on 03-05-2024 Creatinine [Mass/Vol] 2.19 mg/dL High 0.70-1.[address] [facility] Comment on above: Performed By: #### P TT, BMP, HS TROP, PT, CK, BNP, DIFF CBC #### [address] Creatinine [Mass/volume] in Serum or PlasmaOrdered By: Bertha Cuevas on 03-05-2024 Creatinine [Mass/Vol] 2.12 mg/dL High 0.70-1.[address] [facility] Comment on above: Performed By: #### O BS-GUAIAC #### [address] Diff and CBCon 03-05-2024 Macrocytosis Slight Normal [facility] Comment on above: Performed By: #### P TT, BMP, HS TROP, PT, CK, BNP, DIFF CBC #### [address] Mean Corpuscular HGB Conc 34.4 g/dL Normal 32.5-35.6 [facility] Comment on above: Performed By: #### P TT, BMP, HS TROP, PT, CK, BNP, DIFF CBC #### [address] Monocyte Distribution Width Normal 0.00-20.00 [facility] Comment on above: Result Comment: The predictive value of MDW for identifying sepsis in patients with hematological abnormalities has not been established Performed By: #### P TT, BMP, HS TROP, PT, CK, BNP, DIFF CBC #### [address] Platelet Estimate Decreased Normal Normal [facility] Comment on above: Performed By: #### P TT, BMP, HS TROP, PT, CK, BNP, DIFF CBC #### [address] Platelet Morphology Normal Normal Normal [facility] Comment on above: Result Comment: PERF ORMED BY: [place] [address] PATHOLOGIST PIPELINE TECHNICIAN OTTO HARLEY M.D. Performed By: #### P TT, BMP, HS TROP, PT, CK, BNP, DIFF CBC #### [address] Dipstick and Microscopicon 0 03-05-2024 Appearance (U) Clear Normal Clear [facility] Comment on above: Order Comment: Name Collection Type:: Clean-Voided Midstream Performed By: #### P TT, BMP, HS TROP, PT, CK, BNP, DIFF CBC #### [address] Bacteria,Urine None Seen Normal None Seen [facility] Comment on above: Order Comment: Name Collection Type:: Clean-Voided Midstream Performed By: #### P TT, BMP, HS TROP, PT, CK, BNP, DIFF CBC #### [address] Bilirubin,Urine Negative Normal Negative [facility] Comment on above: Order Comment: Name Collection Type:: Clean-Voided Midstream Performed By: #### P TT, BMP, HS TROP, PT, CK, BNP, DIFF CBC #### [address] Glucose Ql (U) Normal Normal Normal [facility] Comment on above: Order Comment: Name Collection Type:: Clean-Voided Midstream Performed By: #### P TT, BMP, HS TROP, PT, CK, BNP, DIFF CBC #### [address] Hyaline Casts,Urine 0-8 Normal 0-8 [facility] Comment on above: Order Comment: Name Collection Type:: Clean-Voided Midstream Result Comment: PERF ORMED BY: [place] [address] PATHOLOGIST PIPELINE TECHNICIAN OTTO HARLEY M.D. Performed By: #### P TT, BMP, HS TROP, PT, CK, BNP, DIFF CBC #### [address] Ketones Ql (U) Negative Normal Negative [facility] Comment on above: Order Comment: Name Collection Type:: Clean-Voided Midstream Performed By: #### P TT, BMP, HS TROP, PT, CK, BNP, DIFF CBC #### [address] Leukocyte esterase Test strip Ql (U) Negative Normal Negative [facility] Comment on above: Order Comment: Name Collection Type:: Clean-Voided Midstream Performed By: #### P TT, BMP, HS TROP, PT, CK, BNP, DIFF CBC #### [address] Nitrite,Urine Negative Normal Negative [facility] Comment on above: Order Comment: Name Collection Type:: Clean-Voided Midstream Performed By: #### P TT, BMP, HS TROP, PT, CK, BNP, DIFF CBC #### [address] Occult Blood,Urine Negative Normal Negative [facility] Comment on above: Order Comment: Name Collection Type:: Clean-Voided Midstream Result Comment: PERF ORMED BY: [place] [address] PATHOLOGIST PIPELINE TECHNICIAN OTTO HARLEY M.D. Performed By: #### P TT, BMP, HS TROP, PT, CK, BNP, DIFF CBC #### [address] RBC,Urine 1-2 Normal 0-4 [facility] Comment on above: Order Comment: Name Collection Type:: Clean-Voided Midstream Performed By: #### P TT, BMP, HS TROP, PT, CK, BNP, DIFF CBC #### [address] Specificy [place],Urine 1.018 Normal 1.001-1.03 0 [facility] Comment on above: Order Comment: Name Collection Type:: Clean-Voided Midstream Performed By: #### P TT, BMP, HS TROP, PT, CK, BNP, DIFF CBC #### [address] Squamous Epithelial Cell,Urine 0-1 Normal 0-2 [facility] Comment on above: Order Comment: Name Collection Type:: Clean-Voided Midstream Performed By: #### P TT, BMP, HS TROP, PT, CK, BNP, DIFF CBC #### [address] Urobilinogen,Urine Normal Normal Normal [facility] Comment on above: Order Comment: Name Collection Type:: Clean-Voided Midstream Performed By: #### P TT, BMP, HS TROP, PT, CK, BNP, DIFF CBC #### [address] WBC,Urine 3-4 Normal 0-4 [facility] Comment on above: Order Comment: Name Collection Type:: Clean-Voided Midstream Performed By: #### P TT, BMP, HS TROP, PT, CK, BNP, DIFF CBC #### [address] ECG 12 lead ECGon 03-05-2024 ECG 12 lead ECG [facility] [place] [address] Electrocardiograph Report Signed Patient: Neil Wilcox MR#: [id number] : 1945 Acct:[id number] Age/Sex: 78 / M ADM Date: 03/05/24 Loc: ER Room: Type: [facility] ER Attending Dr: Ordering Provider: Trung Armenta [...] ECGs available Confirmed by TRUNG ARMENTA DO ([id number]) on 03/05/2024 2:37:00 PM Referred By: Electronically Signed By:TRUNG ARMENTA DO Transcribed By: MUS Signed By Trung Armenta DO 1437 Normal [facility] Eosinophils Auto (Bld) [#/Vo l]Ordered By: Trung Armenta on 03-05-2024 Eosinophils (Bld) [#/Vol] N/A [facility] Eosinophils Auto (Bld) [#/Vo l]Ordered By: Bertha Cuevas on 03-05-2024 Eosinophils (Bld) [#/Vol] N/A [facility] Eosinophils/100 WBC Auto (Bl d)Ordered By: Trung Armenta on 03-05-2024 Eosinophils/100 WBC (Bld) N/A [facility] Eosinophils/100 WBC Auto (Bl d)Ordered By: artem Cuevas on 03-05-2024 Eosinophils/100 WBC (Bld) N/A [facility] Eosinophils/100 leukocytes i n Blood by Manual countOrdered By: Trung Armenta on 03-05-2024 Eosinophils/100 WBC (Bld) 10 % High 1-3 [facility] Comment on above: Performed By: #### P TT, BMP, HS TROP, PT, CK, BNP, DIFF CBC #### [facility] [address] Erythrocyte distribution wid th [Ratio] by Automated countOrdered By: Trung Armenta on 03-05-2024 Erythrocyte distribution width (RBC) [Ratio] 19.4 % High 12.0-14.8 [facility] Comment on above: Performed By: #### P TT, BMP, HS TROP, PT, CK, BNP, DIFF CBC #### [facility] [address] Erythrocyte distribution wid th [Ratio] by Automated countOrdered By: Bertha Pearce on 03-05-2024 Erythrocyte distribution width (RBC) [Ratio] 19.3 % High 12.0-14.8 [facility] Comment on above: Order Comment: STAT FOR BX Performed By: #### P TT, BMP, HS TROP, PT, CK, BNP, DIFF CBC #### [facility] [address] [place] [address] [place] Erythrocytes [#/area] in Uri ne sediment by Automated countOrdered By: Trung Armenta on 03-05-2024 RBC Auto (Urine sed) [#/Area] 1-2 [HPF] 0-4 [facility] Erythrocytes [#/volume] in B lood by Automated countOrdered By: Trung Armenta on 03-05-2024 RBC (Bld) [#/Vol] 1.93 10*6/uL Low 3.90-5.60 [facility] Comment on above: Performed By: #### P TT, BMP, HS TROP, PT, CK, BNP, DIFF CBC #### [facility] [address] [place] [id number] [place] Erythrocytes [#/volume] in B lood by Automated countOrdered By: Bertha Cuevas on 03-05-2024 RBC (Bld) [#/Vol] 2.25 10*6/uL Low 3.90-5.60 [facility] Comment on above: Order Comment: STAT FOR BX Performed By: #### P TT, BMP, HS TROP, PT, CK, BNP, DIFF CBC #### [facility] [address] [place] [id number] [place] Glucose [Mass/volume] in Ser um or PlasmaOrdered By: Trung Armenta on 03-05-2024 Glucose [Mass/Vol] 113 mg/dL High 70-100 [facility] Comment on above: ADA recommended refe rence rangeRandom Glucose Reference Range is dependent on time and content of last meal. Glucose of more than 200 mg/dL in a nonstressed, ambulatory subject supports the diagnosis of Diabetes Mellitus. Result Comment: [place] Glucose Reference Range is dependent on time and content of last meal. Glucose of more than 200 mg/dL in a nonstressed, ambulatory subject supports the diagnosis of Diabetes Mellitus. ADA recommended reference range Performed By: #### P TT, BMP, HS TROP, PT, CK, BNP, DIFF CBC #### [facility] [address] [place] [id number] [place] Glucose [Mass/volume] in Ser um or PlasmaOrdered By: Bertha Cuevas on 03-05-2024 Glucose [Mass/Vol] 110 mg/dL High 70-100 [facility] Comment on above: ADA recommended refe rence rangeRandom Glucose Reference Range is dependent on time and content of last meal. Glucose of more than 200 mg/dL in a nonstressed, ambulatory subject supports the diagnosis of Diabetes Mellitus. Result Comment: [place] [facility] Glucose Reference Range is dependent on time and content of last meal. Glucose of more than 200 mg/dL in a nonstressed, ambulatory subject supports the diagnosis of Diabetes Mellitus. ADA recommended reference range Performed By: #### O BS-GUAIAC #### [address] Hematocrit [Volume Fraction] of Blood by Automated countOrdered By: Trung Armenta on 03-05-2024 Hematocrit (Bld) [Volume fraction] 20.1 % Low 38.8-50.0 [facility] Comment on above: Performed By: #### P TT, BMP, HS TROP, PT, CK, BNP, DIFF CBC #### [place] [address] [place] Hematocrit [Volume Fraction] of Blood by Automated countOrdered By: Bertha Pearce on 03-05-2024 Hematocrit (Bld) [Volume fraction] 23.5 % Low 38.8-50.0 [facility] Comment on above: Order Comment: STAT FOR BX Performed By: #### P TT, BMP, HS TROP, PT, CK, BNP, DIFF CBC #### [place] [address] [place] Hemoglobin [Mass/volume] in BloodOrdered By: Trung Armenta on 03-05-2024 Hemoglobin (Bld) [Mass/Vol] 6.9 g/dL Low 13.0-17.0 [facility] Comment on above: Performed By: #### P TT, BMP, HS TROP, PT, CK, BNP, DIFF CBC #### [place] [address] [place] Hemoglobin [Mass/volume] in BloodOrdered By: Bertha Cuevas on 03-05-2024 Hemoglobin (Bld) [Mass/Vol] 8.1 g/dL Low 13.0-17.0 [facility] Comment on above: Order Comment: STAT FOR BX Performed By: #### P TT, BMP, HS TROP, PT, CK, BNP, DIFF CBC #### [facility] [address] Hemoglobin and Hematocriton 03-05-2024 Hematocrit (Bld) [Volume fraction] 24.9 % Low 38.8-50.0 [facility] Comment on above: Result Comment: PERF ORMED BY: [place] [address] PATHOLOGIST PIPELINE TECHNICIAN OTTO HARLEY M.D. Performed By: #### H H #### [address] Hemoglobin (Bld) [Mass/Vol] 8.6 g/dL Low 13.0-17.0 [facility] Comment on above: Performed By: #### H H #### [address] INR in Platelet poor plasma by Coagulation assayOrdered By: Trung Armneta on 03-05-2024 INR Coag (PPP) [Relative time] 1.3 {INR} Normal [facility] Comment on above: INR Therapeutic Rang e [...] TROP, PT, CK, BNP, DIFF CBC #### [facility] [address] Ketones Auto test strip (U) [Mass/Vol]Ordered By: Trung Armenta on 03-05-2024 Ketones (U) [Mass/Vol] Negative Negative [facility] - UrinalysisOrder ed By: Trung Armenta on 03-05-2024 Hyaline casts LM Ql (Urine sed) 0-8 [LPF] 0-8 [facility] LeukoReduced RBCon LeukoReduced RBC TRANSFUSED 03/05/24 1636 Normal [facility] Leukocytes [#/area] in Urine sediment by Automated countOrdered By: Trung Armenta on 03-05-2024 WBC Auto (Urine sed) [#/Area] 3-4 [HPF] 0-4 [facility] Leukocytes [#/volume] correc myrtle for nucleated erythrocytes in Blood by Automated counOrdered By: Trung Armenta on 03-05-2024 WBC corrected for nucl RBC Auto (Bld) [#/Vol] 1.6 10*3/uL 4.1-10.5 [facility] Leukocytes [#/volume] correc myrtle for nucleated erythrocytes in Blood by Automated counOrdered By: Bertha Cuevas on 03-05-2024 WBC corrected for nucl RBC Auto (Bld) [#/Vol] 1.5 10*3/uL 4.1-10.5 [facility] Leukocytes [#/volume] in Blo od by Automated countOrdered By: Trung Armenta on 03-05-2024 WBC (Bld) [#/Vol] 1.6 10*3/uL Low 4.1-10.5 [facility] Comment on above: Performed By: #### P TT, BMP, HS TROP, PT, CK, BNP, DIFF CBC #### [facility] [address] Leukocytes [#/volume] in Blo od by Automated countOrdered By: Bertha Cuevas on 03-05-2024 WBC (Bld) [#/Vol] 1.5 10*3/uL Low 4.1-10.5 [facility] Comment on above: Order Comment: STAT FOR BX Performed By: #### P TT, BMP, HS TROP, PT, CK, BNP, DIFF CBC #### [facility] [address] [place] [address] Lymphocytes Auto (Bld) [#/Vo l]Ordered By: Trung Aremnta on 03-05-2024 Lymphocytes (Bld) [#/Vol] N/A [facility] Lymphocytes Auto (Bld) [#/Vo l]Ordered By: Bertha Cuevas on 03-05-2024 Lymphocytes (Bld) [#/Vol] N/A [facility] Lymphocytes/100 WBC Auto (Bl d)Ordered By: Trung Armenta on 03-05-2024 Lymphocytes/100 WBC (Bld) N/A [facility] Lymphocytes/100 WBC Auto (Bl d)Ordered By: Bertha Cuevas on 03-05-2024 Lymphocytes/100 WBC (Bld) N/A [facility] Lymphocytes/100 leukocytes i n Blood by Manual countOrdered By: Trung Armenta on 03-05-2024 Lymphocytes/100 WBC (Bld) 54 % High 18-42 [facility] Comment on above: Performed By: #### P TT, BMP, HS TROP, PT, CK, BNP, DIFF CBC #### [facility] [address] [place] [address] MCH [Entitic mass] by Automa myrtle countOrdered By: Trung Armenta on 03-05-2024 MCH (RBC) [Entitic mass] 35.9 pg High 27.5-35.2 [facility] Comment on above: Performed By: #### P TT, BMP, HS TROP, PT, CK, BNP, DIFF CBC #### [facility] [address] [place] [address] MCH [Entitic mass] by Automa myrtle countOrdered By: Bertha Cuevas on 03-05-2024 MCH (RBC) [Entitic mass] 36.2 pg High 27.5-35.2 [facility] Comment on above: Order Comment: STAT FOR BX Performed By: #### P TT, BMP, HS TROP, PT, CK, BNP, DIFF CBC #### [facility] [address] MCHC Auto (RBC) [Mass/Vol]Or dered By: Trung Armenta on 03-05-2024 MCHC (RBC) [Mass/Vol] 34.4 g/dL 32.5-35.[address] [facility] MCHC Auto (RBC) [Mass/Vol]Or dered By: Bertha Cuevas on 03-05-2024 MCHC (RBC) [Mass/Vol] 34.6 g/dL 32.5-35.[address] [facility] MCV [Entitic volume] by Auto mated countOrdered By: Trung Armenta on 03-05-2024 MCV (RBC) [Entitic vol] 104.2 fL High 83.5-101 [facility] Comment on above: Performed By: #### P TT, BMP, HS TROP, PT, CK, BNP, DIFF CBC #### [address] MCV [Entitic volume] by Auto mated countOrdered By: Bertha Cuevas on 03-05-2024 MCV (RBC) [Entitic vol] 104.6 fL High 83.5-101 [facility] Comment on above: Order Comment: STAT FOR BX Performed By: #### P TT, BMP, HS TROP, PT, CK, BNP, DIFF CBC #### [address] Macrocytes LM Ql (Bld)Ordere d By: Trung Armenta on 03-05-2024 Macrocytes Ql (Bld) Slight [facility] Manual blood segmented neutr ophils/100 leukocytesOrdered By: Trung Armenta on 03-05-2024 Segmented neutrophils/100 WBC (Bld) 31 % Low 50-70 [facility] Comment on above: Performed By: #### P TT, BMP, HS TROP, PT, CK, BNP, DIFF CBC #### [address] Monocyte distribution width [Entitic volume] in Blood by AutomatedOrdered By: Trung Armenta on 03-05-2024 Monocyte distribution width Auto (Bld) [Entitic vol] See comment 0.00-20.00 [facility] Comment on above: The predictive value of MDW for identifying sepsis in patients with hematological abnormalities has not been established Monocytes Auto (Bld) [#/Vol] Ordered By: Trung Armenta on 03-05-2024 Monocytes (Bld) [#/Vol] N/A [facility] Monocytes Auto (Bld) [#/Vol] Ordered By: Bertha Cuevas on 03-05-2024 Monocytes (Bld) [#/Vol] N/A [facility] Monocytes/100 WBC Auto (Bld) Ordered By: Trung Armenta on 03-05-2024 Monocytes/100 WBC (Bld) N/A [facility] Monocytes/100 WBC Auto (Bld) Ordered By: Bertha Cuevas on 03-05-2024 Monocytes/100 WBC (Bld) N/A [facility] Monocytes/100 leukocytes in Blood by Manual countOrdered By: Trung Armenta on 03-05-2024 Monocytes/100 WBC (Bld) 0 % Low 2-11 [facility] Comment on above: Performed By: #### P TT, BMP, HS TROP, PT, CK, BNP, DIFF CBC #### [facility] [address] Neutrophils Auto (Bld) [#/Vo l]Ordered By: Trung Armenta on 03-05-2024 Neutrophils (Bld) [#/Vol] N/A [facility] Neutrophils Auto (Bld) [#/Vo l]Ordered By: Bertha Cuevas on 03-05-2024 Neutrophils (Bld) [#/Vol] N/A [facility] Neutrophils/100 WBC Auto (Bl d)Ordered By: Trung Armenta on 03-05-2024 Neutrophils/100 WBC (Bld) N/A [facility] Neutrophils/100 WBC Auto (Bl d)Ordered By: Bertha Cuevas on 03-05-2024 Neutrophils/100 WBC (Bld) N/A [facility] Nitrite Test strip Ql (U)Ord ered By: Trung Armenta on 03-05-2024 Nitrite Ql (U) Negative Negative [facility] No Panel InformationOrdered By: Trung Armenta on 03-05-2024 Stool Occult Blood (AMY) [facility] Estimated GFR (CKD-EPI) 30.449 mL/Min [facility] Creatinine Clearance (Chem 28.70 [facility] No Panel InformationOrdered By: Bertha Cuevas on 03-05-2024 Estimated GFR (CKD-EPI) 31.659 mL/Min [facility] Creatinine Clearance (Chem N/A [facility] Nucleated erythrocytes [Pres ence] in Blood by Automated countOrdered By: Trung Armenta on 03-05-2024 Nucleated RBC Auto Ql (Bld) N/A [facility] Nucleated erythrocytes [Pres ence] in Blood by Automated countOrdered By: Bertha Cuevas on 03-05-2024 Nucleated RBC Auto Ql (Bld) N/A [facility] Partial Thromboplastin Timeo n 03-05-2024 aPTT Coag (Bld) [Time] 29.7 s Normal 25.1-36.5 [facility] Comment on above: Result Comment: A he matocrit value greater than 55% may lead to inaccurate results in coagulation testing. Patients having hematocrit values >55% require a special collection tube for coagulation studies. Please contact the laboratory at [phone] for redraw instructions. PERFORMED BY: [place] [address] PATHOLOGIST PIPELINE TECHNICIAN OTTO HARLEY M.D. Performed By: #### P TT, BMP, HS TROP, PT, CK, BNP, DIFF CBC #### [facility] [address] [place] [address] Peripheral white blood cell differential % bands, microscopic examOrdered By: Trung Armenta on 03-05-2024 Band form neutrophils/100 WBC (Bld) 5 % Normal 0-5 [facility] Comment on above: Performed By: #### P TT, BMP, HS TROP, PT, CK, BNP, DIFF CBC #### [address] Platelet adequacy [Presence] in Blood by Light microscopyOrdered By: Trung Armenta on 03-05-2024 Platelets LM Ql (Bld) Decreased Normal [facility] Platelet mean volume [Entiti c volume] in Blood by Automated countOrdered By: Trung Armenta on 03-05-2024 Platelet mean volume (Bld) [Entitic vol] 7.6 fL Normal 6.6-10.1 [facility] Comment on above: Result Comment: PERF ORMED BY: [place] [address] PATHOLOGIST PIPELINE TECHNICIAN OTTO HARLEY M.D. Performed By: #### P TT, BMP, HS TROP, PT, CK, BNP, DIFF CBC #### [address] Platelet mean volume [Entiti c volume] in Blood by Automated countOrdered By: Bertha Cuevas on 03-05-2024 Platelet mean volume (Bld) [Entitic vol] 8.0 fL Normal 6.6-10.1 [facility] Comment on above: Order Comment: STAT FOR BX Result Comment: PERF ORMED BY: [place] [address] PATHOLOGIST PIPELINE TECHNICIAN OTTO HARLEY M.D. Performed By: #### P TT, BMP, HS TROP, PT, CK, BNP, DIFF CBC #### [address] Platelet morphology finding [Identifier] in BloodOrdered By: Trung Armenta on 03-05-2024 Platelet morphology finding Nom (Bld) Normal Normal [facility] Platelets [#/volume] in Bloo d by Automated countOrdered By: Trung Armenta on 03-05-2024 Platelets (Bld) [#/Vol] 67 10*3/uL Low 150-450 [facility] Comment on above: Performed By: #### P TT, BMP, HS TROP, PT, CK, BNP, DIFF CBC #### [place] [address] [place] Platelets [#/volume] in Bloo d by Automated countOrdered By: Bertha Cuevas on 03-05-2024 Platelets (Bld) [#/Vol] 78 10*3/uL Low 150-450 [facility] Comment on above: Order Comment: STAT FOR BX Performed By: #### P TT, BMP, HS TROP, PT, CK, BNP, DIFF CBC #### [facility] [address] Potassium [Moles/volume] in Serum or PlasmaOrdered By: Trung Armenta on 03-05-2024 Potassium [Moles/Vol] 4.2 mmol/L Normal 3.5-5.[address] [facility] Comment on above: Performed By: #### P TT, BMP, HS TROP, PT, CK, BNP, DIFF CBC #### [address] Potassium [Moles/volume] in Serum or PlasmaOrdered By: Bertha Cuevas on 03-05-2024 Potassium [Moles/Vol] 4.5 mmol/L Normal 3.5-5.[address] [facility] Comment on above: Hemolysis is present at a level that could interfere with the result.Contact lab if redraw is required Result Comment: Hemo lysis is present at a level that could interfere with the result. Contact lab if redraw is required Performed By: #### O BS-GUAIAC #### [address] Protein [Mass/volume] in Ser um or PlasmaOrdered By: Bertha Cuevas on 03-05-2024 Protein [Mass/Vol] 9.3 g/dL High 6.4-8.9 [facility] Comment on above: Performed By: #### O BS-GUAIAC #### [address] Prothrombin time (PT)Ordered By: Trung Armenta on 03-05-2024 PT Coag (PPP) [Time] 15.0 s High 9.0-12.9 [facility] Comment on above: A hematocrit value g reater than 55% may lead to inaccurate results in coagulation testing. Patients having hematocrit values >55% require a special collection tube for coagulation studies. Please contact the laboratory at [phone] for redraw instructions. Result Comment: A he matocrit value greater than 55% may lead to inaccurate results in coagulation testing. Patients having hematocrit values >55% require a special collection tube for coagulation studies. Please contact the laboratory at [phone] for redraw instructions. Performed By: #### P TT, BMP, HS TROP, PT, CK, BNP, DIFF CBC #### [address] RBC morphologyOrdered By: Emeka Armenta on 03-05-2024 RBC morphology finding Nom (Bld) N/A [facility] Serum globulin measurement b y calculation (mass/volume)Ordered By: Bertha Pearce on 03-05-2024 Globulin (S) [Mass/Vol] 6.2 g/dL [facility] Comment on above: Performed By: #### O BS-GUAIAC #### [address] Serum or plasma albumin/glob ulin mass ratioOrdered By: Bertha Cuevas on 03-05-2024 Albumin/Globulin [Mass ratio] 0.5 {ratio} [facility] Comment on above: Performed By: #### O BS-GUAIAC #### [address] Serum or plasma anion gap de terminationOrdered By: Trung Armenta on 03-05-2024 Anion gap [Moles/Vol] 16.2 mmol/L High 6.0-15.0 [facility] Comment on above: Performed By: #### P TT, BMP, HS TROP, PT, CK, BNP, DIFF CBC #### [address] Serum or plasma anion gap de terminationOrdered By: Bertha Cuevas on 03-05-2024 Anion gap [Moles/Vol] 19.8 mmol/L High 6.0-15.0 [facility] Comment on above: Performed By: #### O BS-GUAIAC #### [place] [address] [place] Sodium [Moles/volume] in Ser um or PlasmaOrdered By: Trung Armenta on 03-05-2024 Sodium [Moles/Vol] 139 mmol/L Normal 136-145 [facility] Comment on above: Performed By: #### P TT, BMP, HS TROP, PT, CK, BNP, DIFF CBC #### [facility] [address] Sodium [Moles/volume] in Ser um or PlasmaOrdered By: Bertha Cuevas on 03-05-2024 Sodium [Moles/Vol] 138 mmol/L Normal 136-145 [facility] Comment on above: Performed By: #### O BS-GUAIAC #### [address] Specific gravity Auto test s trip (U) [Rel density]Ordered By: Trung Armenta on 03-05-2024 Specific gravity (U) [Rel density] 1.018 1.001-1.03 0 [facility] Stool Occult Bl. Scr. (Guaia c)on 03-05-2024 Stool Occult Bl. Scr. (Guaiac) Occult Blood Negative for Occult Blood by Guaiac Methodology Reference range = Negative PERFORMED BY: [place] [address] PATHOLOGIST PIPELINE TECHNICIAN OTTO HARLEY M.D. Normal [facility] Comment on above: Performed By: #### O BS-GUAIAC #### [address] Troponin I High Sensitivityo n 03-05-2024 Troponin I High Sensitivity 22.3 pg/mL High 0.0-20.0 [facility] Comment on above: Result Comment: PERF ORMED BY: [place] [address] PATHOLOGIST PIPELINE TECHNICIAN OTTO HARLEY M.D. Performed By: #### P TT, BMP, HS TROP, PT, CK, BNP, DIFF CBC #### [address] Troponin I.cardiac [Mass/vol ume] in Serum or Plasma by Detection limit <= 0.01 ng/Ordered By: Trung Armenta on 03-05-2024 Troponin I.cardiac DL <= 0.01 ng/mL [Mass/Vol] 22.3 pg/mL 0.0-20.0 [facility] Type and Screenon 03-05-2024 ABO and Rh group Nom (Bld) Blood group A Rh(D) positive Normal [facility] Comment on above: Order Comment: Trans fuse now? Y Number of units to transfuse now? 2 Result Comment: PERF ORMED BY: [place] [address] PATHOLOGIST PIPELINE TECHNICIAN OTTO HARLEY M.D. Urea nitrogen [Mass/volume] in Serum or PlasmaOrdered By: Trung Armenta on 03-05-2024 Urea nitrogen [Mass/Vol] 42 mg/dL [address] Comment on above: Performed By: #### P TT, BMP, HS TROP, PT, CK, BNP, DIFF CBC #### [facility] [address] [place], [place] [id number] [place] Urea nitrogen [Mass/volume] in Serum or PlasmaOrdered By: Bertha Cuevas on 03-05-2024 Urea nitrogen [Mass/Vol] 41 mg/dL [address] Comment on above: Performed By: #### O YOGESH-SHAKEEL #### [facility] [address] [place] [address] Urine clarity by refractomet ry automatedOrdered By: Trung Armenta on 03-05-2024 Clarity Refractometry automated (U) Clear Clear [facility] Urine glucose measurement by automated test strip (mass/volume)Ordered By: Trung Armenta on 03-05-2024 Glucose Auto test strip (U) [Mass/Vol] Normal mg/dL Normal [facility] Urine hemoglobin detection b y automated test stripOrdered By: Trung Armenta on 03-05-2024 Hemoglobin Auto test strip Ql (U) Negative Negative [facility] Urine leukocyte esterase det ection by automated test stripOrdered By: Trung Armenta on 03-05-2024 Leukocyte esterase Auto test strip Ql (U) Negative Negative [facility] Urine pH measurement by auto mated test stripOrdered By: Trung Armenta on 03-05-2024 pH (U) 5.5 [pH] Normal 5.0-9.0 [facility] Comment on above: Order Comment: Name Collection Type:: Clean-Voided Midstream Performed By: #### P TT, BMP, HS TROP, PT, CK, BNP, DIFF CBC #### [address] Urine protein measurement by automated test strip (mass/volume)Ordered By: Trung Armenta on 03-05-2024 Protein (U) [Mass/Vol] 30 mg/dL High Negative [facility] Comment on above: Order Comment: Name Collection Type:: Clean-Voided Midstream Performed By: #### P TT, BMP, HS TROP, PT, CK, BNP, DIFF CBC #### [place] [id number] [facility] Urobilinogen Auto test strip (U) [Mass/Vol]Ordered By: Trung Armenta on 03-05-2024 Urobilinogen (U) [Mass/Vol] Normal mg/dL Normal [facility] XR bone surveyon 03-05-2024 XR bone survey [facility] [place] [address] XRay Report Signed Patient: Neil Wilcox MR#: [id number] : 1945 Acct:[id number] Age/Sex: 78 / M ADM Date: 03/05/24 Loc: Room: [address] [place] [address] Type: ADM IN Attending Dr: Roslyn Townsend [...] Tobias Tracy M.D.03/05/2024 6:02 PM Dictation Location: [place] [address] Transcribed By: [facility] 03/05/241801 Dictated By: Tobias Tracy DO 03/05/241755 Signed By: 03/05/24 180 Normal [facility] XR chest 2V*on 03-05-2024 XR chest 2V* [facility] [place] [address] [place] [address] XRay Report Signed Patient: Neil Wilcox MR#: [id number] : 1945 Acct:[id number] Age/Sex: 78 / M ADM Date: 03/05/24 Loc: ER Room: Type: [facility] ER Attending Dr: Copies to: Trung Armenta DO [...] Tobias Tracy M.D.03/05/2024 12:34 PM Dictation Location: [place] [address] Transcribed By: [facility] 03/05/24 1234 Dictated By: Tobias Tracy DO 03/05/24 1230 Signed By: 03/05/24 1234 Normal [facility] [place] Antinuclear Antibodieson 02-26-2024 Antinuclear Abs, IFA Positive Critically abnormal . [facility] Comment on above: Result Comment: Nega tive <1:80 Borderline 1:80 Positive >1:80 Performed By: #### P TT, BMP, HS TROP, PT, CK, BNP, DIFF CBC #### [facility] [address] Homogeneous Pattern 1:320 High . [facility] Comment on above: Result Comment: ICAP nomenclature: AC-1 Performed By: #### P TT, BMP, HS TROP, PT, CK, BNP, DIFF CBC #### [facility] [address] Note 1 Normal . [facility] Comment on above: Result Comment: Yamel bah Potential Disease Association Homogeneous Systemic Lupus Erythematosus, Drug Induced Systemic Lupus Erythematosus, Chronic Autoimmune hepatitis, Juvenile Idiopathic Arthritis Speckled Sjogren Syndrome, Systemic Lupus Erythematosus, Subacute Cutaneous Lupus, Lupus, Congenital Heart Block, Mixed Connective Tissue Disease, Scleroderma-diffuse, Scleroderma-Autoimmune Myositis Overlap Syndrome, Systemic Lupus Jhtdtwzpenkro-Ttyhufmnczn-Nxckjhxzjj Myositis Overlap Syndrome, Systemic Autoimmune Rheumatic Disease, [...] Linear Scleroderma, Antiphospholipid Syndrome Performed at: - [facility] [id number] Sewer Line Repairer: J Carlos Blackman PhD, Phone: [phone] Performed By: #### P TT, BMP, HS TROP, PT, CK, BNP, DIFF CBC #### [facility] [address] Absolute reticulocyte countO rdered By: Bertha Cuevas on 02-26-2024 Reticulocytes (Bld) [#/Vol] 0.002 10*6/uL 0.024-0.08 4 [facility] Alanine aminotransferase [En zymatic activity/volume] in Serum or PlasmaOrdered By: Bertha Cuevas on 02-26-2024 ALT [Catalytic activity/Vol] 10 U/L Normal 7-52 [facility] Comment on above: Performed By: #### O BS-GUAIAC #### [address] Albumin [Mass/volume] in Ser um or PlasmaOrdered By: Bertha Cuevas on 02-26-2024 Albumin [Mass/Vol] 3.4 g/dL Normal 2.9-4.4 [facility] Comment on above: Performed By: #### P TT, BMP, HS TROP, PT, CK, BNP, DIFF CBC #### [place] [address] [place] Albumin [Mass/volume] in Ser um or Plasma by Bromocresol green (BCG) dye binding methoOrdered By: Bertha Cuevas on 02-26-2024 Albumin BCG dye [Mass/Vol] 3.5 g/dL 3.5-5.7 [facility] Alkaline phosphatase [Enzyma tic activity/volume] in Serum or PlasmaOrdered By: Bertha Cuevas on 02-26-2024 ALP [Catalytic activity/Vol] 71 U/L Normal 34-104 [facility] Comment on above: Performed By: #### O BS-GUAIAC #### [place] [address] [place] Anisocytosis [Presence] in B lood by Light microscopyOrdered By: Bertha Cuevas on 02-26-2024 Anisocytosis Ql (Bld) Marked Normal [facility] Comment on above: Performed By: #### O BS-GUAIAC #### [place] [address] [place] Aspartate aminotransferase [ Enzymatic activity/volume] in Serum or PlasmaOrdered By: Bertha Cuevas on 02-26-2024 AST [Catalytic activity/Vol] 12 U/L Low 13-39 [facility] Comment on above: Performed By: #### O BS-GUAIAC #### [address] Automated basophil %Ordered By: Bertha Cuevas on 02-26-2024 Basophils/100 WBC (Bld) 0.2 % Normal . [facility] Comment on above: Performed By: #### O BS-GUAIAC #### [address] Automated basophil countOrde red By: Bertha Dye-Portia on 02-26-2024 Basophils (Bld) [#/Vol] 0.0 10*3/uL Normal 0.0-0.2 [facility] Comment on above: Performed By: #### O BS-GUAIAC #### [address] Automated blood monocyte cou ntOrdered By: Bertha Dye-Portia on 02-26-2024 Monocytes (Bld) [#/Vol] 0.0 10*3/uL Normal 0.0-0.8 [facility] Comment on above: Performed By: #### O BS-GUAIAC #### [address] Automated eosinophil %Ordere d By: Bertha Cuevas on 02-26-2024 Eosinophils/100 WBC (Bld) 10.5 % Normal . [facility] Comment on above: Performed By: #### O BS-GUAIAC #### [address] Automated eosinophil countOr dered By: Bertha Dye-Portia on 02-26-2024 Eosinophils (Bld) [#/Vol] 0.3 10*3/uL Normal 0.0-0.45 [facility] Comment on above: Performed By: #### O BS-GUAIAC #### [address] Automated monocyte %Ordered By: Bertha Dye-Portia on 02-26-2024 Monocytes/100 WBC (Bld) 1.4 % Normal . [facility] Comment on above: Performed By: #### O BS-GUAIAC #### [facility] [address] Automated neutrophil %Ordere d By: Bertha Cuevas on 02-26-2024 Neutrophils/100 WBC (Bld) 44.9 % Normal . [facility] Comment on above: Performed By: #### O BS-GUAIAC #### [facility] [address] [place] [address] Basophil percentageOrdered B y: Bertha Cuevas on 02-26-2024 Basophil percentage 109 ug/dL 69-132 [facility] Comment on above: This test was develo ped and its performance characteristicsdetermined by [employer]. It has not been cleared orapproved by the Food and Drug Administration. Detection Limit = 5Performed at: [facility] [address] [id number] Director: Mary Jane Maya MD, Phone: [phone] Bilirubin.total [Mass/volume ] in Serum or PlasmaOrdered By: Bertha Cuevas on 02-26-2024 Bilirubin [Mass/Vol] 0.8 mg/dL Normal 0.3-1.0 [facility] Comment on above: Performed By: #### O BS-GUAIAC #### [address] Blood platelet glycoprotein Ib/IX IgG antibody detection by immunoassayOrdered By: Bertha Cuevas on 02-26-2024 Platelet glycoprotein Ib/Ix IgG IA Ql (Bld) Negative Negative [facility] Calcium [Mass/volume] in Ser um or PlasmaOrdered By: Bertha Cuevas on 02-26-2024 Calcium [Mass/Vol] 12.1 mg/dL High 8.6-10.3 [facility] Comment on above: Performed By: #### O BS-GUAIAC #### [address] Carbon dioxide, total [Moles /volume] in Serum or PlasmaOrdered By: Bertha Pearce on 02-26-2024 CO2 [Moles/Vol] 25.2 mmol/L Normal 21.0-31.0 [facility] Comment on above: Performed By: #### O BS-GUAIAC #### [address] Chloride [Moles/volume] in S dustin or PlasmaOrdered By: Bertha HardikChrisDaralara on 02-26-2024 Chloride [Moles/Vol] 104 mmol/L Normal 98-107 [facility] Comment on above: Performed By: #### O BS-GUAIAC #### [facility] [address] [place] [address] Comprehensive Metabolic Pane melvin 02-26-2024 Albumin [Mass/Vol] 3.5 g/dL Normal 3.5-5.7 [facility] Comment on above: Performed By: #### O BS-GUAIAC #### [address] Creatinine Clr Calc Pharmacy 43.64 Normal [facility] Comment on above: Performed By: #### O BS-GUAIAC #### [address] GFR/1.73 sq M.predicted MDRD (S/P/Bld) [Vol rate/Area] 50.358 mL/min/{1.73_m2} Normal [facility] Comment on above: Performed By: #### O BS-GUAIAC #### [address] Copperon 02-26-2024 Copper 109 ug/dL Normal 69-132 [facility] Comment on above: Result Comment: This test was developed and its performance characteristics determined by [employer]. It has not been cleared or approved by the Food and Drug Administration. Detection Limit = 5 Performed at: [address] [id number] Sewer Line Repairer: Mary Jane Maya MD, Phone: [phone] Performed By: #### P TT, BMP, HS TROP, PT, CK, BNP, DIFF CBC #### [address] Creatinine [Mass/volume] in Serum or PlasmaOrdered By: Bertha Cuevas on 02-26-2024 Creatinine [Mass/Vol] 1.44 mg/dL High 0.70-1.[address] [facility] Comment on above: Performed By: #### O BS-GUAIAC #### [address] Cytogenetics [employer] Cytogenetics Neogenomic Normal [facility] Comment on above: Result Comment: See report. Scanned copy available in EMR. Performed By: #### P TT, BMP, HS TROP, PT, CK, BNP, DIFF CBC #### [address] Direct [place] 02-26-2024 Polyspecific AHG Negative Normal Negative [facility] Comment on above: Result Comment: PERF ORMED BY: [place] [address] PATHOLOGIST PIPELINE TECHNICIAN OTTO HARLEY M.D. Erythrocyte distribution wid th [Ratio] by Automated countOrdered By: Bertha Pearce on 02-26-2024 Erythrocyte distribution width (RBC) [Ratio] 20.0 % High 12.0-14.8 [facility] Comment on above: Performed By: #### O BS-GUAIAC #### [address] Erythrocytes [#/volume] in B lood by Automated countOrdered By: Bertha Cuevas on 02-26-2024 RBC (Bld) [#/Vol] 2.60 10*6/uL Low 3.90-5.60 [facility] Comment on above: Performed By: #### O BS-GUAIAC #### [address] Ferritin [Mass/volume] in Se rum or PlasmaOrdered By: Bertha Cuevas on 02-26-2024 Ferritin [Mass/Vol] 720.3 ng/mL High 23.9-336.2 [facility] Comment on above: Performed By: #### O BS-GUAIAC #### [facility] [address] Fish Not Bladder Neogenomico n 02-26-2024 Fish Not Bladder Neogenomic Normal [facility] Comment on above: Result Comment: See report. Scanned copy available in EMR. PERFORMED BY: [place] [address] PATHOLOGIST PIPELINE TECHNICIAN OTTO HARLEY M.D. Performed By: #### P TT, BMP, HS TROP, PT, CK, BNP, DIFF CBC #### [address] Flowcytometry Neogenomicon 0 02-26-2024 Flowcytometry Neogenomic Normal [facility] Comment on above: Result Comment: See report. Scanned copy available in EMR.See report. Scanned copy available in EMR. --- 03/03/24 0759 --- Flow Neogenomic previously reported as: See report. Scanned copy available in EMR. Performed By: #### P TT, BMP, HS TROP, PT, CK, BNP, DIFF CBC #### [address] Folate [Mass/volume] in Seru m or PlasmaOrdered By: Bertha Cuevas on 02-26-2024 Folate [Mass/Vol] ng/mL >5.9 [facility] Comment on above: Folate reference ran ge: >5.9 ng/mlThe WHO technical consultation on folate and vitamin [id number] has determined that folate concentrations lessthan 4 ng/ml are considered deficient. Free K+L LT Chains, Qn, Son 02-26-2024 Free [place] Light Chains, S 1354.4 mg/L High 3.3-19.4 [facility] Comment on above: Performed By: #### P TT, BMP, HS TROP, PT, CK, BNP, DIFF CBC #### [facility] [address] Free Lambda Light Chains, S 10.1 mg/L Normal 5.7-26.3 [facility] Comment on above: Performed By: #### P TT, BMP, HS TROP, PT, CK, BNP, DIFF CBC #### [address] [place]/Lambda Ratio, S 134.10 High 0.26-1.65 [facility] Comment on above: Result Comment: Perf ormed at: - [address] [id number] Sewer Line Repairer: J Carlos Blackman PhD, Phone: [phone] PERFORMED BY: [place] [address] PATHOLOGIST PIPELINE TECHNICIAN OTTO HARLEY M.D. Performed By: #### P TT, BMP, HS TROP, PT, CK, BNP, DIFF CBC #### [address] Glucose [Mass/volume] in Ser um or PlasmaOrdered By: Bertha Cuevas on 02-26-2024 Glucose [Mass/Vol] 104 mg/dL High 70-100 [facility] Comment on above: ADA recommended refe rence rangeRandom Glucose Reference Range is dependent on time and content of last meal. Glucose of more than 200 mg/dL in a nonstressed, ambulatory subject supports the diagnosis of Diabetes Mellitus. Result Comment: [place] om Glucose Reference Range is dependent on time and content of last meal. Glucose of more than 200 mg/dL in a nonstressed, ambulatory subject supports the diagnosis of Diabetes Mellitus. ADA recommended reference range Performed By: #### O BS-GUAIAC #### [address] HIV 1/O/2 Antigen/Antibodyon 02-26-2024 HIV Screen 4th Generation Non-Reactive Normal Non Reactive [facility] Comment on above: Result Comment: HIV Negative HIV-1/HIV-2 antibodies and HIV-1 p24 antigen were NOT detected. There is no laboratory evidence of HIV infection. Performed at: - [facility] [id number] Sewer Line Repairer: J Carlos Blackman PhD, Phone: [phone] Performed By: #### P TT, BMP, HS TROP, PT, CK, BNP, DIFF CBC #### [address] HIV 1 and HIV-2 antibody ass ay with HIV-1 p24 antigen detectionOrdered By: Bertha Cuevas on 02-26-2024 HIV 1+2 Ab+HIV1 p24 Ag IA Ql Non-Reactive Non Reactive [facility] Comment on above: HIV NegativeHIV-1/HI V-2 antibodies and HIV-1 p24 antigen were NOTdetected. There is no laboratory evidence of HIV infection.Performed at: [facility] [id number] Director: J Carlos Blackman PhD, Phone: [phone] Hematocrit [Volume Fraction] of Blood by Automated countOrdered By: Bertha Pearce on 02-26-2024 Hematocrit (Bld) [Volume fraction] 27.0 % Low 38.8-50.0 [facility] Comment on above: Performed By: #### O BS-GUAIAC #### [address] Hemoglobin [Mass/volume] in BloodOrdered By: Bertha Cuevas on 02-26-2024 Hemoglobin (Bld) [Mass/Vol] 9.3 g/dL Low 13.0-17.0 [facility] Comment on above: Performed By: #### O BS-GUAIAC #### [address] Hep C Ab wRfx to Qnt PCRon 0 02-26-2024 Hepatitis C Virus Antibody Non-Reactive Normal Non Reactive [facility] Comment on above: Performed By: #### P TT, BMP, HS TROP, PT, CK, BNP, DIFF CBC #### [address] Interpretation Hepatitis C Normal . [facility] Comment on above: Result Comment: Not infected with HCV unless early or acute infection is suspected (which may be delayed in an immunocompromised individual), or other evidence exists to indicate HCV infection. Performed By: #### P TT, BMP, HS TROP, PT, CK, BNP, DIFF CBC #### [address] Hepatitis B Core Antibodyon 02-26-2024 Hepatitis B Core Antibody Positive Critically abnormal Negative [facility] Comment on above: Result Comment: Perf ormed at: - [facility] [address] [id number] Sewer Line Repairer: J Carlos Blackman PhD, Phone: [phone] Performed By: #### P TT, BMP, HS TROP, PT, CK, BNP, DIFF CBC #### [address] Hepatitis B Surface Antibody on 02-26-2024 Hepatitis B Surface Antibody Reactive Normal . [facility] Comment on above: Result Comment: Non Reactive: Inconsistent with immunity, less than 10 mIU/mL Reactive: Consistent with immunity, greater than 9.9 mIU/mL Performed By: #### P TT, BMP, HS TROP, PT, CK, BNP, DIFF CBC #### [address] Hepatitis B Surface Antigeno n 02-26-2024 HBsAg Screen Negative Normal Negative [facility] Comment on above: Result Comment: PERF ORMED BY: [place] [address] PATHOLOGIST PIPELINE TECHNICIAN OTTO HARLEY M.D. Performed By: #### P TT, BMP, HS TROP, PT, CK, BNP, DIFF CBC #### [address] Hepatitis B virus surface Ab [Presence] in SerumOrdered By: Bertha Cuevas on 02-26-2024 HBV surface Ab Ql (S) Reactive . [facility] Comment on above: Non Reactive: Incons istent with immunity, less than 10 mIU/mL Reactive: Consistent with immunity, greater than 9.9 mIU/mL Hepatitis B virus surface Ag [Presence] in Serum or Plasma by ImmunoassayOrdered By: Bertha Cuevas on 02-26-2024 HBV surface Ag IA Ql Negative Negative [facility] Hepatitis C virus IgG Ab [Pr esence] in Serum or Plasma by ImmunoassayOrdered By: Bertha Cuevas on 02-26-2024 HCV IgG IA Ql Non-Reactive Non Reactive [facility] IgA [Mass/volume] in Serum o r PlasmaOrdered By: Bertha Cuevas on 02-26-2024 IgA [Mass/Vol] 3828 mg/dL 61-437 [facility] Comment on above: Results confirmed on dilution. IgG [Mass/volume] in Serum o r PlasmaOrdered By: Bertha Cuevas on 02-26-2024 IgG [Mass/Vol] 667 mg/dL 603-1613 [facility] IgM [Mass/volume] in Serum o r PlasmaOrdered By: Bertha Cuevas on 02-26-2024 IgM [Mass/Vol] 16 mg/dL 15-143 [facility] Comment on above: Result confirmed on concentration.Performed at: [facility] [place] [id number] Director: J Carlos Blackman PhD, Phone: [phone] Immunofixation,Serumon 02-25 Immunofixation, Serum Abnormal . [facility] Comment on above: Result Comment: Immu nofixation shows IgA monoclonal protein with kappa light chain specificity. Performed By: #### P TT, BMP, HS TROP, PT, CK, BNP, DIFF CBC #### [facility] [address] [place] [address] [place] Immunoglobulin A, Serum 3828 mg/dL High 61-437 [facility] Comment on above: Result Comment: Resu lts confirmed on dilution. Performed By: #### P TT, BMP, HS TROP, PT, CK, BNP, DIFF CBC #### [facility] [address] [place] [address] [place] Immunoglobulin G 667 mg/dL Normal 603-1613 [facility] Comment on above: Performed By: #### P TT, BMP, HS TROP, PT, CK, BNP, DIFF CBC #### [facility] [address] [place] [address] [place] Immunoglobulin M, Serum 16 mg/dL Normal 15-143 [facility] Comment on above: Result Comment: Resu lt confirmed on concentration. Performed at: [facility] - [facility] [address] [id number] Sewer Line Repairer: J Carlos Blackman PhD, Phone: [phone] Performed By: #### P TT, BMP, HS TROP, PT, CK, BNP, DIFF CBC #### [facility] [address] Immunoglobulin light chains. kappa.free [Mass/volume] in SerumOrdered By: Bertha Cuevas on 02-26-2024 Immunoglobulin light chains.kappa.free (S) [Mass/Vol] 1354.4 mg/L 3.3-19.4 [facility] Immunoglobulin light chains. kappa.free/Immunoglobulin light chains.lambda.free [MassOrdered By: Bertha Cuevas on 02-26-2024 Immunoglobulin light chains.kappa.free/Immu noglobulin light chains.lambda.free (S) [Mass ratio] 134.10 0.26-1.65 [facility] Comment on above: Performed at: [facility] [place] [address]Lab Director: J Carlos Blackman PhD, Phone: [phone] Immunoglobulin light chains. lambda.free [Mass/volume] in Serum or PlasmaOrdered By: Bertha Cuevas on 02-26-2024 Immunoglobulin light chains.lambda.free [Mass/Vol] 10.1 mg/L 5.7-26.3 [facility] Iron [Mass/volume] in Serum or PlasmaOrdered By: Bertha Cuevas on 02-26-2024 Iron [Mass/Vol] 139 ug/dL Normal 50-212 [facility] Comment on above: Performed By: #### O BS-GUAIAC #### [address] Iron and TIBC Profileon % Iron Saturation 64.1 % High 20-50 [facility] Comment on above: Performed By: #### O BS-GUAIAC #### [address] Total Iron Binding Capacity 217 ug/dL Low 255-450 [facility] Comment on above: Performed By: #### O BS-GUAIAC #### [facility] [address] [place] [address] Iron binding capacity [Mass/ volume] in Serum or PlasmaOrdered By: Bertha Cuevas on 02-26-2024 Iron binding capacity [Mass/Vol] 217 ug/dL 255-450 [facility] Iron saturation [Mass Fracti on] in Serum or PlasmaOrdered By: Bertha Cuevas on 02-26-2024 Iron saturation [Mass fraction] 64.1 % 20-50 [facility] LDH Lactate Dehydrogenaseon 02-26-2024 LDH Lactate Dehydrogenase 118 U/L Low 140-271 [facility] Comment on above: Performed By: #### O BS-GUAIAC #### [facility] [address] [place] [address] Laboratory - Chemistry and C hemistry - challengeOrdered By: Bertha Cuevas on 02-26-2024 Protein [Mass/Vol] 3.7 g/dL Not Observed [facility] Lactate dehydrogenase [Enzym atic activity/volume] in Serum or Plasma by Lactate to pyOrdered By: Bertha Cuevas on 02-26-2024 LDH Lactate to pyruvate reaction [Catalytic activity/Vol] 118 U/L 140-271 [facility] Leukocytes [#/volume] correc myrtle for nucleated erythrocytes in Blood by Automated counOrdered By: Bertha Cuevas on 02-26-2024 WBC corrected for nucl RBC Auto (Bld) [#/Vol] 2.5 10*3/uL 4.1-10.5 [facility] Leukocytes [#/volume] in Blo od by Automated countOrdered By: Bertha Cuevas on 02-26-2024 WBC (Bld) [#/Vol] 2.5 10*3/uL Low 4.1-10.5 [facility] Comment on above: Performed By: #### O BS-GUAIAC #### [facility] [address] [place] [address] [place] Lymphocytes [#/volume] in Bl ood by Automated countOrdered By: Bertha Cuevas on 02-26-2024 Lymphocytes (Bld) [#/Vol] 1.1 10*3/uL Normal 1.00-4.8 [facility] Comment on above: Performed By: #### O BS-GUAIAC #### [facility] [address] [place] [address] Lymphocytes/100 leukocytes i n Blood by Automated countOrdered By: Bertha Cuevas on 02-26-2024 Lymphocytes/100 WBC (Bld) 43.0 % Normal . [facility] Comment on above: Performed By: #### O BS-GUAIAC #### [facility] [address] [place] [address] MCH [Entitic mass] by Automa myrtle countOrdered By: Bertha Cuevas on 02-26-2024 MCH (RBC) [Entitic mass] 35.7 pg High 27.5-35.2 [facility] Comment on above: Performed By: #### O BS-GUAIAC #### [facility] [address] [place] [address] MCHC Auto (RBC) [Mass/Vol]Or dered By: Bertha Cuevas on 02-26-2024 MCHC (RBC) [Mass/Vol] 34.4 g/dL 32.5-35.[address] [facility] MCV [Entitic volume] by Auto mated countOrdered By: Bertha Cuevas on 02-26-2024 MCV (RBC) [Entitic vol] 103.8 fL High 83.5-101 [facility] Comment on above: Performed By: #### O BS-GUAIAC #### [facility] [address] [place] [address] Macrocytes LM Ql (Bld)Ordere d By: Bertha Cuevas on 02-26-2024 Macrocytes Ql (Bld) Slight [facility] Neutrophils [#/volume] in Bl ood by Automated countOrdered By: Bertha Cuevas on 02-26-2024 Neutrophils (Bld) [#/Vol] 1.1 10*3/uL Low 1.8-7.7 [facility] Comment on above: Performed By: #### O YOGESH-SHAKEEL #### [facility] [address] No Panel InformationOrdered By: Bertha Cuevas on 02-26-2024 Anti-Nuclear Antibody Comment 2 See comment . [facility] Comment on above: Pattern Potential Di sease Association Homogeneous Systemic Lupus Erythematosus, Drug Induced Systemic Lupus Erythematosus, Chronic Autoimmune hepatitis, Juvenile Idiopathic Arthritis Speckled Sjogren Syndrome, Systemic Lupus Erythematosus, Subacute Cutaneous Lupus, Lupus, Congenital Heart Block, Mixed Connective Tissue Disease, Scleroderma-diffuse, Scleroderma-Autoimmune Myositis Overlap Syndrome, Systemic Lupus Gqrmdcpqoxbyi-Yypolxssxgr-Ocmdjebbgj Myositis Overlap Syndrome, Systemic Autoimmune Rheumatic Disease, [...] Cytopenias, Linear Scleroderma, Antiphospholipid Syndrome Performed at: [facility] [address] [id number] Director: J Carlos Blackman PhD, Phone: [phone] Anti-Platelet Glycoprotein IV Negative Negative [facility] Comment on above: Performed at: [facility] [address] [id number] Director: Mary Jane Maya MD, Phone: [phone] Comment (FISH) See comment [facility] Comment on above: See report. Scanned copy available in EMR. Estimated GFR (CKD-EPI) 50.358 mL/Min [facility] Hepatitis B Core Total Antibody Positive Negative [facility] Comment on above: Performed at: [facility] [address] [id number] Director: J Carlos Blackman PhD, Phone: [phone] Hepatitis C Interpretation See comment . [facility] Comment on above: Not infected with HC V unless early or acute infection issuspected (which may be delayed in an immunocompromisedindividual), or other evidence exists to indicate HCVinfection. Pharmacy Creatinine Clearance (Chem 43.64 [facility] Protein Electrophoresis Note See comment . [facility] Comment on above: Protein electrophore sis scan will follow via computer,mail, or electronic musical instrument repairer delivery.Performed at: [facility] [address] [id number] Director: J Carlos Blackman PhD, Phone: [phone] Serum Immunofixation See comment . [facility] Comment on above: Immunofixation shows IgA monoclonal protein with kappalight chain specificity. Nucleated erythrocytes [Pres ence] in Blood by Automated countOrdered By: Bertha Cuevas on 02-26-2024 Nucleated RBC Auto Ql (Bld) 0.2 /100{WBC} 0-0.5 [facility] Platelet Antibody, Serumon 0 02-26-2024 GLycoprotein IV Antibody Negative Normal Negative [facility] Comment on above: Result Comment: Perf ormed at: [facility] [address] [id number] Sewer Line Repairer: Mary Jane Maya MD, Phone: [phone] Performed By: #### P TT, BMP, HS TROP, PT, CK, BNP, DIFF CBC #### [address] Hla Class 1 Antibody Negative Normal Negative [facility] Comment on above: Performed By: #### P TT, BMP, HS TROP, PT, CK, BNP, DIFF CBC #### [facility] [address] [place] [address] [place] Ia/IIa Antibodies Negative Normal Negative [facility] Comment on above: Performed By: #### P TT, BMP, HS TROP, PT, CK, BNP, DIFF CBC #### [facility] [address] [place] [id number] [place] Ib/IX Antibody Negative Normal Negative [facility] Comment on above: Performed By: #### P TT, BMP, HS TROP, PT, CK, BNP, DIFF CBC #### [facility] [address] [place] [id number] [place] IIb/IIIa Antibody Negative Normal Negative [facility] Comment on above: Performed By: #### P TT, BMP, HS TROP, PT, CK, BNP, DIFF CBC #### [facility] [address] [place] [phone] [place] Platelet adequacy [Presence] in Blood by Light microscopyOrdered By: Bertha Pearce on 02-26-2024 Platelets LM Ql (Bld) Decreased Normal [facility] Platelet mean volume [Entiti c volume] in Blood by Automated countOrdered By: Bertha Cuevas on 02-26-2024 Platelet mean volume (Bld) [Entitic vol] 7.0 fL Normal 6.6-10.1 [facility] Comment on above: Performed By: #### O BS-GUAIAC #### [address] Platelet morphology finding [Identifier] in BloodOrdered By: Bertha Cuveas on 02-26-2024 Platelet morphology finding Nom (Bld) Normal Normal [facility] Platelets [#/volume] in Bloo d by Automated countOrdered By: Bertha Cuevas on 02-26-2024 Platelets (Bld) [#/Vol] 83 10*3/uL Low 150-450 [facility] Comment on above: Performed By: #### O BS-GUAIAC #### [address] Potassium [Moles/volume] in Serum or PlasmaOrdered By: Bertha Cuevas on 02-26-2024 Potassium [Moles/Vol] 4.2 mmol/L Normal 3.5-5.[address] [facility] Comment on above: Performed By: #### O BS-GUAIAC #### [address] Protein Electrophoresis, Ser umon 02-26-2024 Zzdec-0-Nxaopduf 0.3 g/dL Normal 0.0-0.4 [facility] Comment on above: Performed By: #### P TT, BMP, HS TROP, PT, CK, BNP, DIFF CBC #### [place] [address] [place] Fknkf-5-Lccmlaqn 0.9 g/dL Normal 0.4-1.0 [facility] Comment on above: Performed By: #### P TT, BMP, HS TROP, PT, CK, BNP, DIFF CBC #### [place] [address] [place] Beta Globulin 4.4 g/dL High 0.7-1.3 [facility] Comment on above: Performed By: #### P TT, BMP, HS TROP, PT, CK, BNP, DIFF CBC #### [address] Gamma Globulin 0.6 g/dL Normal 0.4-1.8 [facility] Comment on above: Performed By: #### P TT, BMP, HS TROP, PT, CK, BNP, DIFF CBC #### [address] M-Kody 3.7 g/dL High Not Observed [facility] Comment on above: Performed By: #### P TT, BMP, HS TROP, PT, CK, BNP, DIFF CBC #### [address] SPE-Note Normal . [facility] Comment on above: Result Comment: Prot ein electrophoresis scan will follow via computer, mail, or electronic musical instrument repairer delivery. Performed at: [employer] [facility] [place] [id number] Sewer Line Repairer: J Carlos Blackman PhD, Phone: [phone] Performed By: #### P TT, BMP, HS TROP, PT, CK, BNP, DIFF CBC #### [address] Protein [Mass/volume] in Ser um or PlasmaOrdered By: Bertha Cuevas on 02-26-2024 Protein [Mass/Vol] 9.9 g/dL High 6.4-8.9 [facility] Comment on above: Performed By: #### O BS-GUAIAC #### [address] Protein [Mass/Vol] 9.6 g/dL High 6.0-8.5 [facility] Comment on above: Performed By: #### P TT, BMP, HS TROP, PT, CK, BNP, DIFF CBC #### [address] RBC morphologyOrdered By: Endy Cuevas on 02-26-2024 RBC morphology finding Nom (Bld) Normal Normal Normal [facility] Comment on above: Performed By: #### O BS-GUAIAC #### [address] Reticulocyte Counton 024 Reticulocyte Number 0.002 10*6/uL Low 0.024-0 .08 4 [facility] Comment on above: Result Comment: PERF ORMED BY: [place] [address] PATHOLOGIST PIPELINE TECHNICIAN OTTO HARLEY M.D. Performed By: #### O BS-GUAIAC #### [address] Reticulocyte Percent 0.1 % Low 0.5-1.5 [facility] Comment on above: Performed By: #### O BS-GUAIAC #### [place] [address] [place] Reticulocytes/100 RBC Auto ( Bld)Ordered By: Bertha Cuevas on 02-26-2024 Reticulocytes/100 RBC (Bld) 0.1 % 0.5-1.5 [facility] Rheumatoid Factoron 02-26-20 24 Rheumatoid Factor 12.8 Normal <14.0 [facility] Comment on above: Performed By: #### P TT, BMP, HS TROP, PT, CK, BNP, DIFF CBC #### [address] Scan and CBCon 02-26-2024 Macrocytosis Slight Normal [facility] Comment on above: Performed By: #### O BS-GUAIAC #### [address] Mean Corpuscular HGB Conc 34.4 g/dL Normal 32.5-35.6 [facility] Comment on above: Performed By: #### O BS-GUAIAC #### [address] NRBC% 0.2 /100{WBC} Normal 0-0.5 [facility] Comment on above: Performed By: #### O BS-GUAIAC #### [facility] [address] Platelet Estimate Decreased Normal Normal [facility] Comment on above: Performed By: #### O BS-GUAIAC #### [facility] [address] Platelet Morphology Normal Normal Normal [facility] Comment on above: Performed By: #### O BS-GUAIAC #### [address] Serum HLA antibody detection by immunoassayOrdered By: Bertha Cuevas on 02-26-2024 HLA Ab IA Ql (S) Negative Negative [facility] Serum angiotensin converting enzyme (SADIE) measurementOrdered By: Bertha Cuevas on 02-26-2024 Angiotensin converting enzyme [Catalytic activity/Vol] 25 U/L Normal 14-82 [facility] Comment on above: Performed at: [facility] [place] [address]Lab Director: J Carlos Blackman PhD, Phone: [phone] Result Comment: Perf ormed at: [facility] [place] [address] Sewer Line Repairer: J Carlos Blackman PhD, Phone: [phone] Performed By: #### P TT, BMP, HS TROP, PT, CK, BNP, DIFF CBC #### [address] Serum globulin measurement ( mass/volume)Ordered By: Betrha Cuevas on 02-26-2024 Globulin (S) [Mass/Vol] 6.2 g/dL High 2.2-3.9 [facility] Comment on above: Performed By: #### P TT, BMP, HS TROP, PT, CK, BNP, DIFF CBC #### [address] Serum globulin measurement b y calculation (mass/volume)Ordered By: Bertha Pearce on 02-26-2024 Globulin (S) [Mass/Vol] 6.4 g/dL Normal [facility] Comment on above: Performed By: #### O BS-GUAIAC #### [address] Serum homogeneous pattern an tinuclear antibody (CAMILA) titerOrdered By: Bertha Pearce on 02-26-2024 Homogenous nuclear Ab pattern (S) [Titer] 1:320 . [facility] Comment on above: ICAP nomenclature: A C-1 Serum nuclear antibody titer Ordered By: Bertha Cuevas on 02-26-2024 Nuclear Ab (S) [Titer] Positive . [facility] Comment on above: Negative <1:80 Borde rline 1:80 Positive >1:80 Serum or plasma albumin/glob ulin mass ratioOrdered By: Bertha Cuevas on 02-26-2024 Albumin/Globulin [Mass ratio] 0.5 {ratio} Low 0.7-1.7 [facility] Comment on above: Performed By: #### O BS-GUAIAC #### [address] Performed By: #### P TT, BMP, HS TROP, PT, CK, BNP, DIFF CBC #### [address] Serum or plasma alpha 1 glob ulin measurement by electrophoresis (mass/volume)Ordered By: Bertha Cuevas on 02-26-2024 Alpha 1 globulin Elph [Mass/Vol] 0.3 g/dL 0.0-0.4 [facility] Serum or plasma alpha 2 glob ulin measurement by electrophoresis (mass/volume)Ordered By: Bertha Cuevas on 02-26-2024 Alpha 2 globulin Elph [Mass/Vol] 0.9 g/dL 0.4-1.0 [facility] Serum or plasma anion gap de terminationOrdered By: Bertha Cuevas on 02-26-2024 Anion gap [Moles/Vol] 16.0 mmol/L High 6.0-15.0 [facility] Comment on above: Performed By: #### O BS-GUAIAC #### [address] [place] [address] [place] Serum or plasma beta globuli n measurement by electrophoresis (mass/volume)Ordered By: Bertha Cuevas on 02-26-2024 Beta globulin Elph [Mass/Vol] 4.4 g/dL 0.7-1.3 [facility] Serum or plasma gamma globul in measurement by electrophoresis (mass/volume)Ordered By: Bertha Cuevas on 02-26-2024 Gamma globulin Elph [Mass/Vol] 0.6 g/dL 0.4-1.8 [facility] Serum or plasma rheumatoid f actor measurement (units/volume)Ordered By: artem Cuevas on 02-26-2024 Rheumatoid factor Qn 12.8 [IU]/mL <14.0 Fi [facility] Serum platelet glycoprotein IIb/IIIa antibody detection by immunoassayOrdered By: Bertha Cuevas on 02-26-2024 Platelet glycoprotein IIb/IIIa Ab IA Ql (S) Negative Negative [facility] Serum platelet glycoprotein Ia/IIa antibody detection by immunoassayOrdered By: Bertha Cuevas on 02-26-2024 Platelet glycoprotein Ia/IIa Ab IA Ql (S) Negative Negative [facility] Sodium [Moles/volume] in Ser um or PlasmaOrdered By: artem Cuevas on 02-26-2024 Sodium [Moles/Vol] 141 mmol/L Normal 136-145 [facility] Comment on above: Performed By: #### O BS-GUAIAC #### [address] Thyrotropin [Units/volume] i n Serum or PlasmaOrdered By: Bertha Cuevas on 02-26-2024 TSH Qn 1.44 m[IU]/L Normal 0.45-5.33 [facility] Comment on above: Result Comment: PERF ORMED BY: [place] [address] PATHOLOGIST PIPELINE TECHNICIAN OTTO HARLEY M.D. Performed By: #### P TT, BMP, HS TROP, PT, CK, BNP, DIFF CBC #### [facility] [address] [place] [address] Thyroxine (T4) free [Mass/vo lume] in Serum or PlasmaOrdered By: Bertha Cuevas on 02-26-2024 Free T4 [Mass/Vol] 0.95 ng/dL Normal 0.61-1.12 [facility] Comment on above: Performed By: #### P TT, BMP, HS TROP, PT, CK, BNP, DIFF CBC #### [facility] [address] [place] [address] Transferrin [Mass/volume] in Serum or PlasmaOrdered By: Bertha Cuevas on 02-26-2024 Transferrin [Mass/Vol] 155 mg/dL Low 203-362 [facility] Comment on above: Performed By: #### O BS-GUAIAC #### [address] Urea nitrogen [Mass/volume] in Serum or PlasmaOrdered By: Bertha Cuevas on 02-26-2024 Urea nitrogen [Mass/Vol] 34 mg/dL High 7-25 [facility] Comment on above: Performed By: #### O BS-GUAIAC #### [address] Vit. B12/Folate Profileon Folate > 49.6 Normal >5.9 [facility] Comment on above: Result Comment: Edwina te reference range: >5.9 ng/ml The WHO technical consultation on folate and vitamin b12 deficiencies has determined that folate concentrations less than 4 ng/ml are considered deficient. Performed By: #### O BS-GUAIAC #### [facility] [address] [place] [address] Vitamin B12 ser/plasOrdered By: Bertha Cuevas on 02-26-2024 Cobalamin (Vitamin B12) [Mass/Vol] 1961 pg/mL High 180-914 [facility] Comment on above: Performed By: #### O BS-GUAIAC #### [address] WATCHMAN FULL CONTRASTon 12-28-2023 CT WATCHMAN FULL CONTRAST Interpreted By: Carlitos Aguilera, STUDY: CT WATCHMAN FULL CONTRAST; 12/28/2023 10:40 am INDICATION: Signs/Symptoms:A-fib, Post-Watchman. COMPARISON: CT dated 08/28/2023 ACCESSION NUMBER(S): [id number] ORDERING CLINICIAN: RYAN COBB TECHNIQUE: Using multi [...] Carlitos Aguilera 12/28/2023 11:32 AM Dictation workstation: [id number] [facility] No Panel Informationon 12-27 1. Status [...] Carlitos Aguilera 12/28/2023 11:32 AM Dictation workstation: [id number] Interpreted By: Carlitos Shah, STUDY: CT WATCHMAN FULL CONTRAST; 12/28/2023 10:40 am INDICATION: Signs/Symptoms:A-fib, Post-Watchman. COMPARISON: CT dated 08/28/2023 ACCESSION NUMBER(S): [id number] ORDERING CLINICIAN: RYAN COBB TECHNIQUE: Using multi [...] Post-Watchman. COMPARISON: CT dated 08/28/2023 ACCESSION NUMBER(S): [id number] ORDERING CLINICIAN: RYAN COBB TECHNIQUE: Using multi [...] Fleischner Society 2017, Radiology. 2017 Nestor;284 (1):228-243.) FLECLAUDIANER.ACR.IF.1 MACRO: None Signed by: Carlitos Aguilera 12/28/2023 11:32 AM Dictation workstation: [id number] [facility] Work Phone: Radiology Study observation (narrative) [facility] Work Phone: No Panel InformationOrdered By: Carlitos Aguilera on 12-28-2023 [facility] Work Phone: Ambulatory Visit Summaryon [...] spironolactone (spironolactone 25 mg Tab) thyroid desiccated (Webb Thyroid) Procedures Performed Urethral dilatation (11/03/2022), TURP [...] Where: [facility] [address] , [place] [phone] Medications What How Much When Instructions Changed tolterodine (tolterodine 2 mg Cap-ER) 1 Capsules By Mouth As Directed Take one cap in the morning and one at dinnertime. Pickup at [facility]/pharmacy #[id number] Unchanged APAP/ butalbital/ caffeine (APAP/ [...] if questions or concerns Unchanged thyroid desiccated (Webb Thyroid) By Mouth Every day Contact prescribing physician if questions or concerns Pharmacy Information [facility]/pharmacy #[id number]: [address], [place] [phone] Allergies No Known Allergies Problems Ongoing - [...] especially fr (more content not included)... Normal [facility] Patient Educationon 12-03-19 Patient Education Obstetrics [...] health care provider. General instructions ? Take gmgg-rlt-vbnnzbh and prescription medicines only as told by [...] monitor yo (more content not included)... Normal [facility] Urology Office/Clinic Noteon 12-03-2023 Urology [...] morning and night). New rx sent to [facility] Temitope. -Double void maneuvers 2. BPH [...] Frost, URL [facility] [address] [place] [phone] Additional Instructions: 6 mos (increase med dosage) Patient Education Overactive Bladder, Adult I, Marcela Lake, personally scribed for Dr. Ferguson on 12/03/2023 16:15:53. . Documentation recorded by the diamanteibe, Marcela Lake, accurately reflects the services(s) I [...] Medications APAP/butalbital/caffeine 325 mg-50 mg-40 mg Tab Webb Thyroid, Oral, Daily atorvastatin, Oral, Daily Butapap [...] lifetime) Tobac (more content not included)... Normal [facility] Comment on above: Result Comment: Elec tronically Signed By: Trung FERGUSON MD\.br\Date and Time Signed: 12/03/23 16:17 EDT\.br\Electronically Co-Signed By: Marcela Lake.br\Date and Time Co-Signed: 12/03/23 16:16 EDT Blow Down Operator Details- Texton 11-20-2023 Blow Down Operator Details- Text Blow Down Operator Details Entered On: 11/20/2023 9:57 EST Performed On: 11/20/2023 9:56 EST by Sahra Lizarraga RN Blow Down Operator Details Transport Mode Order Detail EV [...] : No Pacemaker Order Detail : 0 Blow Down Operator Details Review Status : Initial Review Nurse Collects Blood Specimens : Sahra Lerma RN - 11/20/2023 9:56 EST Normal [facility] Utilization Review Noteon Utilization Review Note EXT REC DAY 0. CASE CANCELLED DUE TO LOW H&H. Normal [facility] Utilization Review Noteon Utilization Review Note Reg as EXT REC, no documents. NOT IPO Still no information from preaccess yet. Still no information from preaccess yet. Approved for outpatient per preaccess. Normal [facility] HEMOon 11-16-2023 Nucleated RBC 0 /100WBC Normal [facility] Comment on above: Performed By: #### 1 [address], 188022 ####[facility] [address] [place] [address] Medical Director: Eh Gould MD MAN DIFFon 11-16-[address] 0.12 x1000 Normal 0.00-0.70 [facility] Comment on above: Performed By: #### 1 82552, 198424 ####[facility] [address] [place] [address] Medical Director: Eh Gould MD Absolute E[address] 0.07 x1000 Normal 0.00-0.50 [facility] Comment on above: Performed By: #### 1 [address]4767, 222418 ####[facility] [address] [place] [address] Medical Director: Eh Gould MD Absolute Lymph Ct 1.10 x1000 Low 1.20-4.80 [facility] Comment on above: Performed By: #### 1 , [id number] ####[facility] [address] [place] [address] Medical Director: Eh Gould MD Absolute Neutrophil Ct 1.22 x1000 Low 1.40-8.80 [facility] Comment on above: Performed By: #### 1 , [id number] ####[facility] [address] [place] [address] Medical Director: Eh Gould MD Absolute Seg Ct 1.10 x1000 Low 1.40-8.80 [facility] Comment on above: Performed By: #### 1 , 074446 ####[facility] [address] [place] [address] Medical Director: Eh Gould MD Band form neutrophils/100 WBC (Bld) 5 % Normal [facility] Comment on above: Performed By: #### 1 , 443054 ####[facility] [address] [place] [address] Medical Director: Eh Gould MD Eosinophils/100 WBC (Bld) 3 % Normal [facility] Comment on above: Performed By: #### 1 , 661608 ####[facility] [address] [place] [address] Medical Director: Eh Gould MD Lymphocytes/100 WBC (Bld) 46 % Normal [facility] Comment on above: Performed By: #### 1 21184, 294860 ####[facility] [address] [place], [place] [id number]) [phone] Director: Eh Gould MD Macrocytosis Moderate Normal [facility] Comment on above: Performed By: #### 1 34055, 342870 ####[facility] [address] [place] [address] Medical Director: Eh Gould MD Segmented neutrophils/100 WBC (Bld) 46 % Normal [facility] Comment on above: Performed By: #### 1 , 146958 ####[facility] [address] [place], [place] [id number]) [phone] Director: Eh Gould MD ABORHon 11-15-2023 ABORH Interpretation Positive Normal [facility] Comment on above: Performed By: #### C D:[id number], CD:[id number] #### [facility] [address] [place] [address] Oil Well Logger: Eh Gould MD Patient History Check Previous Hx Normal So [facility] Comment on above: Performed By: #### C D:[id number], CD:[id number] #### [facility] [address] [place] [address] Oil Well Logger: Eh Gould MD VS 0.8% a cells 0 Normal [facility] Comment on above: Performed By: #### C D:[id number], CD:[id number] #### [facility] [address] [place] [address] Oil Well Logger: Eh Gould MD VS 0.8% b cells 3+ Normal [facility] Comment on above: Performed By: #### C D:[id number], CD:[id number] #### [facility] [address] [place] [address] Oil Well Logger: Eh Gould MD VS Anti-A Unit 4+ [facility] Comment on above: Performed By: #### C D:[id number], CD:[id number] #### [facility] [address] [place] [address] Oil Well Logger: Eh Gould MD VS Anti-B Unit 0 [facility] Comment on above: Performed By: #### C D:[id number], CD:[id number] #### [facility] [address] [place] [address] Oil Well Logger: Eh Gould MD VS Anti-D Unit 4+ [facility] Comment on above: Performed By: #### C D:[id number], CD:[id number] #### [facility] [address] [place] [address] Oil Well Logger: Eh Gould MD ABSCon 11-15-2023 ABSC Final Interp Negative [facility] Comment on above: Performed By: #### C D:[id number], CD:[id number] #### [facility] [address] [place] [address] Oil Well Logger: Eh Gould MD Pt Hx check done? Yes [facility] Comment on above: Performed By: #### C D:[id number], CD:[id number] #### [facility] [address] [place] [address] Oil Well Logger: Eh Gould MD VS SCI Gel 0 [facility] Comment on above: Performed By: #### C D:[id number], CD:[id number] #### [facility] [facility] Services [address] [place] [address] 27105 Oil Well Logger: Eh Gould MD VS SCII Gel 0 [facility] Comment on above: Performed By: #### C D:[id number], CD:[id number] #### [facility] [address] [place] [address] 75486 Oil Well Logger: Eh Gould MD DVT/VTE Risk Factor-Texton 0 [...] Price RN - 11/15/2023 13:48 EST Normal [facility] HEMOon 11-15-2023 DIFF? Yes Normal [facility] Comment on above: Performed By: #### 1 67671, 033291 ####[facility] [address] [place], [place] [address] Medical Director: Eh Gould MD [facility] Actions See Notes Abnormal [facility] Comment on above: Result Comment: Scan for RBC Morphology Scan Slide. Perform manual diff if needed. SNV Performed By: #### 1 65505, 282387 ####[facility] Hrqlgdcr80419 [place] [address] Medical Director: Eh Gould MD Erythrocyte distribution width (RBC) [Ratio] 14.5 % Normal 11.5-14.5 [facility] Comment on above: Performed By: #### 1 82546, 393390 ####[facility] Watjbcgu95636 [place] [address] Medical Director: Eh Gould MD Hematocrit (Bld) [Volume fraction] 25.3 % Low 41.0-52.0 [facility] Comment on above: Performed By: #### 1 95615, 059557 ####[facility] Msxkvsjy55193 [place] [address] Medical Director: Eh Gould MD Hemoglobin (Bld) [Mass/Vol] 8.7 g/dL Low 13.5-17.5 [facility] Comment on above: Performed By: #### 1 , 665176 ####[facility] Jbmjsujw55190 [place], [place] [address]) [phone] Director: Eh Gould MD Instr WBC 2.4 Normal [facility] Comment on above: Performed By: #### 1 , 773058 ####[facility] Lkidfulk94723 [place] [address] Medical Director: Eh Gould MD MCH (RBC) [Entitic mass] 38.3 pg High 27.0-34.0 [facility] Comment on above: Performed By: #### 1 , 444769 ####[facility] [address] [place], [place] [address]) [phone] Director: Eh Gould MD MCHC (RBC) [Mass/Vol] 34.6 g/dL Normal 32.0-37.0 [facility] Comment on above: Performed By: #### 1 , 148511 ####[facility] Bftcwmis81907 [place], [place] [address]) [phone] Director: Eh Gould MD MCV (RBC) [Entitic vol] 110.6 fL High 80.0-100.0 [facility] Comment on above: Performed By: #### 1 , 469993 ####[facility] [address] [place] [id number]) [phone] Director: Eh Gould MD Platelet 142 x10 Low 150-450 [facility] Comment on above: Performed By: #### 1 , 742264 ####[facility] Rumfiqer64548 [place], [place] [address]) [phone] Director: Eh Gould MD Platelet mean volume (Bld) [Entitic vol] 6.4 fL Low 7.4-10.4 [facility] Comment on above: Performed By: #### 1 51055, 367464 ####[facility] Kqyduiwq92220 [place] [address] Medical Director: Eh Gould MD RBC 2.29 x10 Low 4.70-6.10 [facility] Comment on above: Result Comment: Note : RBC morphology is normal unless otherwise stated. Evaluation performed only if differential is requested. Performed By: #### 1 68286, 118463 ####[facility] Xgahvvlc67366 [place], [place] [id number]) [phone]: Eh Gould MD WBC 2.4 x10 Low 4.5-11.0 [facility] Comment on above: Performed By: #### 1 72377, 526166 ####[facility] Hyvpscvu17978 [place], [place] [address]) [phone] Director: Eh Gould MD Preadmission Testing Progres [...] Orders received during the phone conversation. Normal [facility] Preadmission Testing Progress Note PREADMISSION TESTING [...] must be reported to your surgeon. Normal [facility] UAon 11-15-2023 Appearance, U Clear Normal [facility] Comment on above: Performed By: #### 1 52984 #### [facility] [address] [place] [address] 67934 Oil Well Logger: Eh Gould MD Bilirubin, U Negative Normal Negative [facility] Comment on above: Performed By: #### 1 26810 #### [facility] [address] [place] [address] 99930 Oil Well Logger: Eh Gould MD Blood, U Small Abnormal Negative [facility] Comment on above: Performed By: #### 1 92659 #### [facility] [address] [place] [address] 51360 Oil Well Logger: Eh Gould MD Color, U Yellow Normal [facility] Comment on above: Performed By: #### 1 90884 #### [facility] [address] [place] [address] 50817 Oil Well Logger: Eh Gould MD Glucose Qual, U Negative Normal Negative [facility] Comment on above: Performed By: #### 1 73509 #### [facility] [address] [place] [address] 15242 Oil Well Logger: Eh Gould MD Ketones, U Negative Normal Negative [facility] Comment on above: Performed By: #### 1 48101 #### [facility] [address] [place] [address] 87337 Oil Well Logger: Eh Gould MD Leukocyte Esterase, U Negative Normal Negative [facility] Comment on above: Performed By: #### 1 45050 #### [facility] [address] [place] [address] Oil Well Logger: Eh Gould MD Mucous, U Occasional Normal [facility] Comment on above: Performed By: #### 1 35280 #### [facility] [address] [place] [address] 53848 Oil Well Logger: Eh Gould MD Nitrite, U Negative Normal Negative [facility] Comment on above: Performed By: #### 1 36379 #### [facility] [address] [place] [address] 88845 Oil Well Logger: Eh Gould MD pH, U 5.0 Normal 4.5-8.0 [facility] Comment on above: Performed By: #### 1 02300 #### [facility] [address] [place] [address] 52748 Oil Well Logger: Eh Gould MD Protein, U Negative Normal Negative [facility] Comment on above: Performed By: #### 1 36712 #### [facility] [address] [place] [address] 30622 Oil Well Logger: Eh Gould MD RBC/HPF, U <1 Normal 0-3 [facility] Comment on above: Performed By: #### 1 30037 #### [facility] [address] [place] [address] 53409 Oil Well Logger: Eh Gould MD Specific [place], U 1.014 Normal 1.001-1. 03 5 [facility] Comment on above: Performed By: #### 1 37172 #### [facility] [address] [place] [address] 26032 Oil Well Logger: Eh Gould MD Squamous Epithelial Cells, U <1 Normal [facility] Comment on above: Performed By: #### 1 69017 #### [facility] [address] [place] [address] 46797 Oil Well Logger: Eh Gould MD U MICRO Indicated Normal [facility] Comment on above: Performed By: #### 1 26772 #### [facility] [address] [place] [address] 26027 Oil Well Logger: Eh Gould MD Urobilinogen Qual, U <2.0 mg/dl Normal <2.0 mg/dl [facility] Comment on above: Result Comment: EU/d l and mg/dl are equivalent units. Performed By: #### 1 56849 #### [facility] [address] [place] [address] 80872 Oil Well Logger: Eh Gould MD WBC/HPF, U 2 #/HPF Normal 0-5 [facility] Comment on above: Performed By: #### 1 09753 #### [facility] [address] [place] [address] 33142 Oil Well Logger: Eh Gould MD Preadmission Testing Progres s Noteon 11-14-2023 Preadmission Testing Progress Note Registration called P.A.T.,stating the pt. may not show and reschedule. Pt did not show for appointment. Called Dr. Shaffer's office. Spoke to Alexandra, she stated the CT foe watchman check is scheduled for the 20 of November and is needed for the clearance to be completed. Normal [facility] ABORHon 10-15-2023 ABORH CK Interp Positive Normal [facility] Comment on above: Performed By: #### C D:[id number], CD:[id number] #### [facility] [address] [place] [address] 60564 Oil Well Logger: Eh Gould MD Anti-A recheck 4+ Normal [facility] Comment on above: Performed By: #### C D:[id number], CD:[id number] #### [facility] [address] [place] [address] [id number] Oil Well Logger: Eh Gould MD Anti-B recheck 0 Normal [facility] Comment on above: Performed By: #### C D:[id number], CD:[id number] #### [facility] [address] [place], [place] 445[address]30 Oil Well Logger: hE Gould MD Anti-D recheck 3+ Normal [facility] Comment on above: Performed By: #### C D:[id number], CD:[id number] #### [facility] [address] [place] [address] Oil Well Logger: Eh Gould MD Pathologist Reviewon 024 Diff [...] ruled out. Clinical correlation is recommended. Normal [facility] Comment on above: Order Comment: Added on by Discern Expert Rule. Result Comment: CAMILA ZEPEDA (Electronic Signature) Date Verified 10/15/23 Performed By: #### 9 136043, 328270, 2069520, 282503, 701526, 619763 ####[facility] Igskejla66181 [place] [address] Medical Director: Eh Gould MD Preadmission Testing [...] who stated they are in route to [facility] appt and delayed due to weather conditions. [...] patient and and notify surgery scheduling. Normal [facility] Utilization Review Noteon Utilization Review Note [...] SHOULDER REPLACEMENT CANCELED PER PREACCESS. CANCELLED. Normal [facility] ABORHon 10-12-2023 ABORH Interpretation Positive Normal [facility] Comment on above: Performed By: #### C D:[id number], CD:[id number] #### [facility] [address] [place], [place] [address] Oil Well Logger: Eh Gould MD Patient History Check No Previous Hx Normal [facility] Comment on above: Result Comment: 09/24 10:30 [id number] ABO Recheck to be ordered on admit. Surgery Date: 10/16/23 Performed By: #### C D:[id number], CD:[id number] #### [facility] [address] [place], [place] [address] Oil Well Logger: Eh Gould MD VS 0.8% a cells 0 Normal [facility] Comment on above: Performed By: #### C D:[id number], CD:[id number] #### [facility] [address] [place], [place] [address] Oil Well Logger: Eh Gould MD VS 0.8% b cells 3+ Normal [facility] Comment on above: Performed By: #### C D:[id number], CD:[id number] #### [facility] [address] [place] [address] 44130 Oil Well Logger: Eh Gould MD VS Anti-A Unit 4+ Normal [facility] Comment on above: Performed By: #### C D:[id number], CD:[id number] #### [facility] [address] [place] [address] 28468 Oil Well Logger: Eh Gould MD VS Anti-B Unit 0 [facility] Comment on above: Performed By: #### C D:[id number], CD:[id number] #### [facility] [address] [place] [address] 92535 Oil Well Logger: Eh Gould MD VS Anti-D Unit 4+ [facility] Comment on above: Performed By: #### C D:[id number], CD:[id number] #### [facility] [address] [place] [address] 64566 Oil Well Logger: Eh Gould MD ABSCon 10-12-2023 ABSC Final Interp Negative [facility] Comment on above: Performed By: #### C D:[id number], CD:[id number] ####[facility] [address] [place] [address] Medical Director: Eh Gould MD Pt Hx check done? Yes [facility] Comment on above: Performed By: #### C D:[id number], CD:[id number] ####[facility] [address] [place] [address] Medical Director: Eh Gould MD VS SCI Gel 0 [facility] Comment on above: Performed By: #### C D:[id number], CD:[id number] ####[facility] [address] [place] [address] 80309 Medical Director: Eh Gould MD VS SCII Gel 0 [facility] Comment on above: Performed By: #### C D:[id number], CD:[id number] ####[facility] [address] [place] [id number]) [phone] Director: Eh Gould MD APTTon 10-12-2023 aPTT Coag (Bld) [Time] 29.5 s Normal 27.0-38.0 [facility] Comment on above: Result Comment: APTT Interpretation: This test has not been validated to monitor heparin therapy. APTT test is used as an initial test for suspected bleeding disorder. Anti-Xa UFH test is used to monitor heparin therapy. Performed By: #### 9 377928, 480832, 8831198, 973593, 321815, 706389 ####[facility] [address] [place] [address] [id number]) [phone] Director: Eh Gould MD AUTO DIFFon 10-12-2023 Baso Count 0.02 x1000 Normal 0.00-0.20 [facility] Comment on above: Performed By: #### 9 739525, 238165, 6027657, 245277, 487615, 073186 ####[facility] [address] [place] [address] 12126440) [phone] Director: Eh Gould MD Basos % 0.8 % Normal [facility] Comment on above: Performed By: #### 9 656674, 828937, 3504615, 272665, 851821, 983756 ####[facility] [address] [place] [address] 6[address]1440) [phone] Director: Eh Gould MD Eos Count 0.21 x1000 Normal 0.00-0.50 [facility] Comment on above: Performed By: #### 9 707730, 373346, 9521514, 645614, 391336, 947703 ####[facility] Przeobyb65088 [place], [place] [address]) [phone] Director: Eh Gould MD Eosinophils/100 WBC (Bld) 7.5 % Normal [facility] Comment on above: Performed By: #### 9 348528, 229887, 8637632, 761660, 557032, 860342 ####[facility] Ywzcpfvc21699 [place] [address] Medical Director: Eh Gould MD Lymph Count 1.03 x1000 Low 1.20-4.80 [facility] Comment on above: Performed By: #### 9 528272, 929820, 3196138, 502956, 091022, 601666 ####[facility] Dtqejpqv15127 [place] [address] Medical Director: Eh Gould MD Lymphocytes/100 WBC (Bld) 36.5 % Normal [facility] Comment on above: Performed By: #### 9 793960, 957076, 1031153, 497501, 618765, 145429 ####[facility] Mmcfisty40835 [place] [address] Medical Director: Eh Gould MD Tyrrell Count 0.08 x1000 Low 0.10-1.00 [facility] Comment on above: Performed By: #### 9 878735, 971137, 8905465, 857535, 213860, 889813 ####[facility] Kesrwdap84407 [place] [address] Medical Director: Eh Gould MD Monocytes/100 WBC (Bld) 2.8 % Normal [facility] Comment on above: Performed By: #### 9 285111, 763786, 8253559, 338883, 985843, 998404 ####[facility] Luirqdim05297 [place] [address] Medical Director: Eh Gould MD Neutrophil Count (ANC) 1.48 x1000 Normal 1.40-8.80 [facility] Comment on above: Performed By: #### 9 156026, 616878, 4391267, 232968, 625238, 203123 ####[facility] Qwejhdma81225 [place], [place] [address]) [phone] Director: Eh Gould MD Neutrophils/100 WBC (Bld) 52.5 % Normal [facility] Comment on above: Performed By: #### 9 052184, 903636, 9889584, 211486, 320461, 302277 ####[facility] Ucmuvbxc09343 [place], [place] [address]) [phone] Director: Eh Gould MD Red Blood Cell Morphology See Notes Abnormal [facility] Comment on above: Result Comment: Macr ocytosis 2+ Rouleaux 1+ Performed By: #### 9 539344, 823016, 8316862, 795020, 719985, 149229 ####[facility] Wccaimcj39905 [place], [place] [address]) [phone] Director: Eh Gould MD Scan Differential Diff Scd Normal [facility] Comment on above: Result Comment: Slid e reviewed by technologist. Performed By: #### 9 418496, 822047, 8050271, 439270, 022118, 732599 ####[facility] Pbnsywka89032 [place], [place] [address]) [phone] Director: Eh Gould MD BASICMETAon 10-12-2023 Calcium [Mass/Vol] 10.1 mg/dL Normal 8.7-10.4 [facility] Comment on above: Performed By: #### 9 497178, 338420, 3726224, 733636, 114382, 968072 ####[facility] Ynmfglaj38975 [place], [place] [address]) [phone] Director: Eh Gould MD Chloride [Moles/Vol] 103 mmol/L Normal 98-[address] [facility] Comment on above: Performed By: #### 9 725161, 260286, 6421214, 879693, 962972, 885194 ####[facility] Zcrnuujd05393 [place] [address] Medical Director: Eh Gould MD CO2 [Moles/Vol] 27.0 mmol/L Normal 20.0-31.0 [facility] Comment on above: Performed By: #### 9 417909, 063970, 5264777, 845378, 737588, 559866 ####[facility] Lqjpzuwz59410 [place] [address] Medical Director: Eh Gould MD Creatinine [Mass/Vol] 1.2 mg/dL High 0.6-1.1 [facility] Comment on above: Performed By: #### 9 715455, 087708, 1160014, 446107, 728079, 560908 ####[facility] Ibcqxdjx43641 [place] [address] Medical Director: Eh Gould MD GFR AA >60 Normal [facility] Comment on above: Result Comment: Afri can Guamanian GFR Calc Medical judgement is necessary to [...] for drug dosing. Performed By: #### 9 777019, 910021, 9744453, 416542, 520547, 355175 ####[facility] Pnofouup65758 [place] [address] Medical Director: Eh Gould MD Glomerular Filtration Rate 59 mL/min/1.73m? Normal [facility] Comment on above: Result Comment: Non- [...] for drug dosing. Performed By: #### 9 307617, 040469, 5679564, 731095, 223195, 653326 ####[facility] Zatyiusv35398 [place] [address] Medical Director: Eh Gould MD Glucose [Mass/Vol] 111 mg/dL High 74-106 [facility] Comment on above: Performed By: #### 9 948067, 005738, 9926983, 549550, 138555, 670839 ####[facility] Lbjjbrpr49949 [place] [address] Medical Director: Eh Gould MD Osmolality [Osmolality] 281 mosm/kg Normal 275-295 [facility] Comment on above: Performed By: #### 9 686799, 900991, 5351484, 371017, 555454, 007032 ####[facility] Ktshpwae61679 [place] [address] Medical Director: Eh Gould MD Potassium [Moles/Vol] 4.0 mmol/L Normal 3.5-5.1 [facility] Comment on above: Performed By: #### 9 093643, 140286, 6800591, 860227, 136227, 462146 ####[facility] Lamcqbti02216 [place] [address] Medical Director: Eh Gould MD Sodium [Moles/Vol] 140 mmol/L Normal 135-145 [facility] Comment on above: Performed By: #### 9 608991, 035410, 6441551, 484570, 144063, 214577 ####[facility] Gctmyufs45757 [place] [address] Medical Director: Eh Gould MD Urea nitrogen [Mass/Vol] 16 mg/dL Normal 9-23 [facility] Comment on above: Result Comment: - Ve nipuncture should occur prior to N-Acetyl Cysteine (NAC) or Metamizole (Sulpyrine) administration due to the potential for falsely depressed results. - Blood samples from some patients with monoclonal gammopathies may produce falsely elevated results Performed By: #### 9 605889, 289564, 6728248, 862046, 500387, 254399 ####[facility] Drglegqk28175 [place] [address] Medical Director: Eh Gould MD Urea nitrogen/Creatinine [Mass ratio] 13.3 mg/mg Normal [facility] Comment on above: Performed By: #### 9 115718, 752104, 9340533, 533821, 680395, 708449 ####[facility] Uynixmen49629 [place], [place] 5868[address]40) [phone] Director: Eh Gould MD HEMOon 10-12-2023 DIFF? No Normal [facility] Comment on above: Performed By: #### 9 217881, 774580, 1443015, 921639, 798258, 096626 ####[facility] Ukjpwftw24758 [place] [address] Medical Director: Eh Gould MD HEM PATH REVIEW See Diff Review Interp Normal [facility] Comment on above: Performed By: #### 9 997657, 906143, 9112820, 915835, 972673, 243716 ####[facility] Uudwdwmu62070 [place] [address] Medical Director: Eh Gould MD Nucleated RBC 0 /100WBC Normal [facility] Comment on above: Performed By: #### 9 786614, 016686, 7635073, 121172, 191165, 661043 ####[facility] Iemysxzi97320 [place] [address] Medical Director: Eh Gould MD DxH Actions See Notes Abnormal [facility] Comment on above: Result Comment: Scan for RBC Morphology Scan Slide. Perform manual diff if needed. SNV Performed By: #### 9 259969, 655884, 0593277, 238597, 321036, 746516 ####[facility] Oyveixaf03906 [place], [place] 10[address]) [phone] Director: Eh Gould MD Erythrocyte distribution width (RBC) [Ratio] 13.5 % Normal 11.5-14.5 [facility] Comment on above: Performed By: #### 9 668018, 164782, 9955848, 003632, 061835, 112565 ####[facility] Eltoghdu69420 [place], [place] 91356440) [phone] Director: Eh Gould MD Hematocrit (Bld) [Volume fraction] 27.4 % Low 41.0-52.0 [facility] Comment on above: Performed By: #### 9 349161, 099426, 0623073, 151749, 573165, 275903 ####[facility] Hhlopgsi49220 [place], [place] [address]) [phone] Director: Eh Gould MD Hemoglobin (Bld) [Mass/Vol] 9.4 g/dL Low 13.5-17.5 [facility] Comment on above: Performed By: #### 9 885497, 678649, 8588360, 507187, 044126, 412378 ####[facility] Iswodeik08405 [place] [address] Medical Director: Eh Gould MD Instr WBC 2.8 Normal [facility] Comment on above: Performed By: #### 9 793453, 960871, 0989909, 601871, 827253, 524930 ####[facility] Ykrerlpa28075 [place], [place] [address]40) [phone] Director: Eh Gould MD MCH (RBC) [Entitic mass] 37.4 pg High 27.0-34.0 [facility] Comment on above: Performed By: #### 9 524773, 112271, 7946144, 655549, 246845, 507537 ####[facility] Omokmevn38476 [place] [address] Medical Director: Eh Gould MD MCHC (RBC) [Mass/Vol] 34.2 g/dL Normal 32.0-37.0 [facility] Comment on above: Performed By: #### 9 748455, 839975, 3207000, 156166, 629932, 069443 ####[facility] Ergxeurn62562 [place] [address] Medical Director: Eh Gould MD MCV (RBC) [Entitic vol] 109.4 fL High 80.0-100.0 [facility] Comment on above: Performed By: #### 9 444272, 010757, 8279402, 729986, 872453, 190163 ####[facility] [address] [place] [address] Medical Director: Eh Gould MD Platelet 165 x10 Normal 150-450 [facility] Comment on above: Performed By: #### 9 598084, 868086, 1005025, 914062, 198049, 856106 ####[facility] Slguesod71781 [place] [address] Medical Director: Eh Gould MD Platelet mean volume (Bld) [Entitic vol] 6.3 fL Low 7.4-10.4 [facility] Comment on above: Performed By: #### 9 901229, 059041, 4593245, 267417, 825439, 163592 ####[facility] Vqtopwvn77039 [place] [address] Medical Director: Eh Gould MD RBC 2.51 x10 Low 4.70-6.10 [facility] Comment on above: Result Comment: Note : RBC morphology is normal unless otherwise stated. Evaluation performed only if differential is requested. Performed By: #### 9 947439, 289977, 9476925, 145280, 608056, 490543 ####[facility] Wnsrtzwq74809 [place] [address] Medical Director: Eh Gould MD WBC 2.8 x10 Low 4.5-11.0 [facility] Comment on above: Performed By: #### 9 379518, 045022, 7472362, 820747, 714520, 243430 ####[facility] Abpqsaxp93241 [place] [address] Medical Director: Eh Gould MD PT INRon 10-12-2023 INR Coag (PPP) [Relative time] 1.2 {INR} Normal [facility] Comment on above: Result Comment: INR Reference Range: Normal reference range for INR on patients not on anticoagulant therapy: 0.9-1.1 General therapeutic range for patients on anticoagulant therapy: 2.0-3.5 Performed By: #### 9 124939, 417205, [id number], 427299, 262442, 460537 ####[facility] [id number] [place] [address] Medical Director: Eh Gould MD Protime Patient 13.4 seconds High 9.8-12.8 [facility] Comment on above: Performed By: #### 9 711680, 930252, 6434213, 058557, 233651, 008304 ####[facility] [id number] [place] [address] Medical Director: Eh Gould MD Preadmission Testing [...] surgeon. Simba TOLEDO, Dante Lanier on Normal [facility] UAon 10-12-2023 U MICRO Indicated Normal [facility] Comment on above: Performed By: #### 1 82243 #### [facility] [address] [place], [place] [address] Oil Well Logger: Eh Gould MD Appearance, U Clear Normal [facility] Comment on above: Performed By: #### 1 42589 #### [facility] [address] [place], [place] [address] Oil Well Logger: Eh Gould MD Bilirubin, U Negative Normal Negative [facility] Comment on above: Performed By: #### 1 45334 #### [facility] [address] [place], [place] [address] Oil Well Logger: Eh Gould MD Blood, U Moderate Abnormal Negative [facility] Comment on above: Performed By: #### 1 36051 #### [facility] [address] [place] [address] Oil Well Logger: Eh Gould MD Color, U Yellow Normal [facility] Comment on above: Performed By: #### 1 71706 #### [facility] [address] [place], [place] [address] Oil Well Logger: Eh Gould MD Glucose Qual, U Negative Normal Negative [facility] Comment on above: Performed By: #### 1 16347 #### [facility] [address] [place], [place] [address] Oil Well Logger: Eh Gould MD Hyaline Cast <1 Normal [facility] Comment on above: Performed By: #### 1 23875 #### [facility] [address] [place] [address] Oil Well Logger: Eh Gould MD Ketones, U Negative Normal Negative [facility] Comment on above: Performed By: #### 1 90275 #### [facility] [address] [place] [address] Oil Well Logger: Eh Gould MD Leukocyte Esterase, U Negative Normal Negative [facility] Comment on above: Performed By: #### 1 66919 #### [facility] [address] [place], [place] [address] Oil Well Logger: Eh Gould MD Mucous, U Occasional Normal [facility] Comment on above: Performed By: #### 1 79868 #### [facility] [address] [place], [place] [address] Oil Well Logger: Eh Gould MD Nitrite, U Negative Normal Negative [facility] Comment on above: Performed By: #### 1 51877 #### [facility] [address] [place], [place] [address] Oil Well Logger: Eh Gould MD pH, U 5.0 Normal 4.5-8.0 [facility] Comment on above: Performed By: #### 1 47918 #### [facility] [address] [place], [place] [address] Oil Well Logger: Eh Gould MD Protein, U Negative Normal Negative [facility] Comment on above: Performed By: #### 1 66735 #### [facility] [address] [place] [address] Oil Well Logger: Eh Gould MD RBC/HPF, U 5 #/HPF High 0-3 [facility] Comment on above: Performed By: #### 1 25056 #### [facility] [address] [place] [address] Oil Well Logger: Eh Gould MD Specific [place], U 1.016 Normal 1.001-1. 03 5 [facility] Comment on above: Performed By: #### 1 78212 #### [facility] [address] [place] [address] Oil Well Logger: Eh Gould MD Urobilinogen Qual, U <2.0 mg/dl Normal <2.0 mg/dl [facility] Comment on above: Result Comment: EU/d l and mg/dl are equivalent units. Performed By: #### 1 33202 #### [facility] [address] [place] [address] Oil Well Logger: Eh Gould MD WBC/HPF, U 7 #/HPF High 0-5 [facility] Comment on above: Performed By: #### 1 07881 #### [facility] [address] [place] [address] Oil Well Logger: Eh Gould MD Activated clotting timeon ACT Coag (Bld) 271 s High 89-169 [facility] Comment on above: Result Comment: Targ et ACT range will vary based on the patient population, clinical status, and surgical intervention occurring. Performed By: #### 3 184-9 #### JAVAD Stephenson ([id number]) [facility] ([facility]) [address] [place] [address] CT WATCHMAN FULL CONTRASTon 08-28-2023 CT WATCHMAN FULL CONTRAST Interpreted By: Purnima Lira, STUDY: CT WATCHMAN FULL CONTRAST; 08/28/2023 12:00 pm INDICATION: Signs/Symptoms:pre Watchman procedure SAME DAY CT. COMPARISON: None. ACCESSION NUMBER(S): [id number] ORDERING CLINICIAN: RYAN COBB TECHNIQUE: Using multi [...] Purnima Lira 09/06/2023 9:28 AM Dictation workstation: [id number] Normal [facility] ECG 12-LEADon 08-28-2023 ECG 12-LEAD Ventricular Rate 63 Atrial Rate 63 P-R Interval 196 QRS Duration 86 Q-T Interval 402 QTC Calculation(Bazett) 411 P [place] 67 R [place] -1 T [place] 20 QRS Count 10 Q Onset 223 P Onset 125 P Offset 180 T Offset 424 QTC Fredericia 408 Diagnosis Normal sinus rhythm Inferior infarct Possible Anterior infarct Abnormal ECG Confirmed by Juan R Obrien ([id number]) on 08/30/2023 3:59:32 PM Normal [facility] STRUCTURAL HEART PROCEDUREon 08-28-2023 STRUCTURAL HEART PROCEDURE [facility], Java Xml Developer, [address] [place] [address] Cardiovascular Catheterization Report Patient Name: ABDOULAYECassie WILCOX Performing Physician: [id number] Cobb MD Study Date: 08/28/2023 Verifying Physician: Archie Cobb MD MRN/PID: [id number] Exterminator Termite/Co-scrub: Ordering Physician: [id number] COBB Date of 1945 Fellow: [id number] Adam Benedict /Age: years Gender: M Fellow: [...] guidance, transseptal puncture was with a versacross ([employer]), accessing the left atrium. The transseptal tract was then dilated with a Watchman Double Curve access sheath and the ICE probe was advanced through the dilated tract into the left atrium. Next, a 6 Macanese angled pigtail was advanced through the delivery [...] CPT Codes: Perc left atrial appendage closure (LAAC)-84889 [id number] Ryan Cobb MD Performing Physician Final [facility] E[facility]TTE) [facility], [address] [place] [address] and TRANSTHORACIC ECHOCARDIOGRAM REPORT Patient Name: NEIL Aldana Physician: [id number] Jacobo French MD Study Date: 08/28/2023 Ordering Provider: [id number] LUCAS PEARCE MRN/PID: [id number] Fellow: Nurse: Date of 1945 Cap Parts Cutter: Moncho Infante RDCS /Age: years Gender: M Additional Staff: Height: 175.26 cm Admit Date: 08/28/2023 Weight: 79.38 kg Admission Status: Inpatient - Routine BSA: 1.95 m2 Department [facility] Cath Location: Lab Blood Pressure: 137 /78 mmHg Study Type: TRANSTHORACIC ECHO (TTE) LIMITED Diagnosis/ICD: Unspecified atrial fibrillation-I48.91 Indication: POST LAAO CPT Code: Echo Limited-60036 Patient History: Pertinent History: HTN; HLD; paroxysmal [...] 72.4 g/m2 LV % FS 32.6 % [id number] Jacobo French MD Electronically signed on 08/28/2023 at 5:50:59 PM Final [facility] TRANSTHORACIC ECHO (TTE) LIMITED [facility], [address] [place] [address] and TRANSTHORACIC ECHOCARDIOGRAM REPORT Patient Name: NEIL Matthews JERI Reading Physician: [id number] Kandis Chau MD Study Date: 08/28/2023 Ordering Provider: [id number] LUCAS PEARCE MRN/PID: [id number] Fellow: Nurse: Date of /Age: 1 1945 / 77 years Cap Parts Cutter: Moncho Infante FLOR[place] Gender: M Additional Staff: Height: 175.26 cm Admit Date: 08/28/2023 Weight: 79.38 kg Admission Status: Inpatient - Routine BSA: 1.95 m2 Department Location: [facility] Non Invasive Study Type: TRANSTHORACIC ECHO (TTE) LIMITED Diagnosis/ICD: Unspecified atrial fibrillation-I48.91 Indication: Pre-LAAO CPT Code: Echo Limited-96457 Patient History: Pertinent History: HTN; HLD: paroxysmal [...] VALVE/RVSP: Normal Ranges: IVC Diam: 1.50 cm [id number] Kandis Chau MD Electronically signed on 08/28/2023 at 3:17:19 PM Final [facility] US Heart Transthoracicon [facility], [address] [place] [address] and TRANSTHORACIC ECHOCARDIOGRAM REPORT Patient Name: NEIL Matthews JERI Reading Physician: [id number] Kandis Chau MD Study Date: 08/28/2023 Ordering Provider: [id number] LUCAS PEARCE MRN/PID: [id number] Fellow: Nurse: Date of /Age: 1 1945 / 77 years Cap Parts Cutter: Moncho Infante RDCS Gender: M Additional Staff: Height: 175.26 cm Admit Date: 08/28/2023 Weight: 79.38 kg Admission Status: Inpatient - Routine BSA: 1.95 m2 Department Location: [facility] Non Invasive Study Type: TRANSTHORACIC ECHO (TTE) LIMITED Diagnosis/ICD: Unspecified atrial fibrillation-I48.91 Indication: Pre-LAAO CPT Code: Echo Limited-84823 Patient History: Pertinent History: HTN; HLD: paroxysmal [...] VALVE/RVSP: Normal Ranges: IVC Diam: 1.50 cm [id number] Kandis Chau MD Electronically signed on 08/28/2023 at 3:17:19 PM Final SYNGO Kandis Chau MD - 08/28/2023 [facility], [address] [place] [address] and TRANSTHORACIC ECHOCARDIOGRAM REPORT Patient Name: NEIL Matthews JERI Reading Physician: [id number] Kandis Chau MD Study Date: 08/28/2023 Ordering Provider: [id number] LUCAS PEARCE MRN/PID: [id number] Fellow: Nurse: Date of /Age: 1 1945 / 77 years Cap Parts Cutter: Moncho Infante RDCS Gender: M Additional Staff: Height: 175.26 cm Admit Date: 08/28/2023 Weight: 79.38 kg Admission Status: Inpatient - Routine BSA: 1.95 m2 Department Location: [facility] Non Invasive Study Type: TRANSTHORACIC ECHO (TTE) LIMITED Diagnosis/ICD: Unspecified atrial fibrillation-I48.91 Indication: Pre-LAAO CPT Code: Echo Limited-64455 Patient History: Pertinent History: HTN; HLD: paroxysmal [...] VALVE/RVSP: Normal Ranges: IVC Diam: 1.50 cm [id number] Kandis Chau MD Electronically signed on 08/28/2023 at 3:17:19 PM Final [facility] Work Phone: Heart TransthoracicOrdere d By: Kandis Chau on 08-28-2023 [facility] Work Phone: Creatinineon 08-22-2023 Creatinine [Mass/Vol] 1.23 mg/dL Normal 0.50-1.30 [facility] Comment on above: Performed By: #### 2 160-0 #### LINDA GALLAGHER ([id number]) [facility] ([facility]) [address] [place] [address] Creatinine [Mass/Vol]on 07-26 GFR/1.73 sq M.predicted MDRD (S/P/Bld) [Vol rate/Area] 61 mL/min/1.73m*2 Normal >60 [facility] Comment on above: Result Comment: Calc ulations of estimated GFR are performed using the 2020 CKD-EPI Study Refit equation without the race variable for the IDMS-Traceable creatinine methods. https://jasn.asnjournals.org/content/early//ASN.21979 74165 Performed By: #### 2 160-0 #### LINDA GALLAGHER ([id number]) [facility] ([facility]) [address] [place] [address]604 CBC W Auto Differential pane l (Bld)on 07-31-2023 Basophils (Bld) [#/Vol] 10*3/uL Normal <0.11 [facility] Comment on above: Order Comment: Speci men Type: BLOOD SPECIMEN Ordering Facility: External Submitter Address: , , Performed By: #### 5 7021-8 #### [facility] CLIA [id number] [address] [place] [address] [place] Basophils/100 WBC (Bld) 0.3 % Normal [facility] Comment on above: Order Comment: Speci men Type: BLOOD SPECIMEN Ordering Facility: External Submitter Address: , , Performed By: #### 5 7021-8 #### [facility] CLIA [id number] [address] [place] [address] [place] CBC W Differential panel, method unspecified (Bld) Done Normal [facility] Comment on above: Order Comment: Speci men Type: BLOOD SPECIMEN Ordering Facility: External Submitter Address: , , Performed By: #### 5 7021-8 #### [facility] CLIA [id number] [facility] [place] [address] [place] Differential cell count method Nom (Bld) Auto Normal [facility] Comment on above: Order Comment: Speci men Type: BLOOD SPECIMEN Ordering Facility: External Submitter Address: , , Performed By: #### 5 7021-8 #### [facility] CLIA [id number] [address] [place] [address] [place] Eosinophils (Bld) [#/Vol] 0.22 10*3/uL Normal <0.46 [facility] Comment on above: Order Comment: Speci men Type: BLOOD SPECIMEN Ordering Facility: External Submitter Address: , , Performed By: #### 5 7021-8 #### [facility] CLIA [id number] [address] [place] [address] [place] Eosinophils/100 WBC (Bld) 6.5 % Normal [facility] Comment on above: Order Comment: Speci men Type: BLOOD SPECIMEN Ordering Facility: External Submitter Address: , , Performed By: #### 5 7021-8 #### [facility] CLIA [id number] [address] [place] [address] [place] Erythrocyte distribution width (RBC) [Ratio] 13.0 % Normal 11.5-15.0 [facility] Comment on above: Order Comment: Speci men Type: BLOOD SPECIMEN Ordering Facility: External Submitter Address: , , Performed By: #### 5 7021-8 #### [facility] CLIA [id number] [address] [place] [address] [place] Hematocrit (Bld) [Volume fraction] 31.3 % Low 39.0-51.0 [facility] Comment on above: Order Comment: Speci men Type: BLOOD SPECIMEN Ordering Facility: External Submitter Address: , , Performed By: #### 5 7021-8 #### [facility] CLIA [id number] [address] [place] [address] [place] Hemoglobin (Bld) [Mass/Vol] 10.4 g/dL Low 13.0-17.0 [facility] Comment on above: Order Comment: Speci men Type: BLOOD SPECIMEN Ordering Facility: External Submitter Address: , , Performed By: #### 5 7021-8 #### [facility] CLIA [id number] [address] [place] [address] [place] Immature granulocytes (Bld) [#/Vol] 10*3/uL Normal <0.10 [facility] Comment on above: Order Comment: Speci men Type: BLOOD SPECIMEN Ordering Facility: External Submitter Address: , , Performed By: #### 5 7021-8 #### [facility] CLIA [id number] [address] [place] [address] [place] Immature granulocytes/100 WBC (Bld) 0.0 % Normal [facility] Comment on above: Order Comment: Speci men Type: BLOOD SPECIMEN Ordering Facility: External Submitter Address: , , Performed By: #### 5 7021-8 #### [facility] CLIA [id number] [address] [place] [address] [place] Lymphocytes (Bld) [#/Vol] 1.06 10*3/uL Normal 1.00-4.00 [facility] Comment on above: Order Comment: Speci men Type: BLOOD SPECIMEN Ordering Facility: External Submitter Address: , , Performed By: #### 5 7021-8 #### [facility] CLIA [id number] [address] [place] [address] [place] Lymphocytes/100 WBC (Bld) 31.2 % Normal [facility] Comment on above: Order Comment: Speci men Type: BLOOD SPECIMEN Ordering Facility: External Submitter Address: , , Performed By: #### 5 7021-8 #### [facility] CLIA [id number] [address] [place] [address] [place] MCH (RBC) [Entitic mass] 37.3 pg High 26.0-34.0 [facility] Comment on above: Order Comment: Speci men Type: BLOOD SPECIMEN Ordering Facility: External Submitter Address: , , Performed By: #### 5 7021-8 #### [facility] CLIA [id number] [address] [place] [address] [place] MCHC (RBC) [Mass/Vol] 33.2 g/dL Normal 30.5-36.0 [facility] Comment on above: Order Comment: Speci men Type: BLOOD SPECIMEN Ordering Facility: External Submitter Address: , , Performed By: #### 5 7021-8 #### [facility] CLIA [id number] [address] [place] [address] [place] MCV (RBC) [Entitic vol] 112.2 fL High 80.0-100.0 [facility] Comment on above: Order Comment: Speci men Type: BLOOD SPECIMEN Ordering Facility: External Submitter Address: , , Performed By: #### 5 7021-8 #### [facility] CLIA [id number] [address] [place] [address] [place] Monocytes (Bld) [#/Vol] 0.13 10*3/uL Normal <0.87 [facility] Comment on above: Order Comment: Speci men Type: BLOOD SPECIMEN Ordering Facility: External Submitter Address: , , Performed By: #### 5 7021-8 #### [facility] CLIA [id number] [address] [place] [address] [place] Monocytes/100 WBC (Bld) 3.8 % Normal [facility] Comment on above: Order Comment: Speci men Type: BLOOD SPECIMEN Ordering Facility: External Submitter Address: , , Performed By: #### 5 7021-8 #### [facility] CLIA [id number] [address] [place] [address] [place] Neutrophils (Bld) [#/Vol] 1.98 10*3/uL Normal 1.45-7.50 [facility] Comment on above: Order Comment: Speci men Type: BLOOD SPECIMEN Ordering Facility: External Submitter Address: , , Performed By: #### 5 7021-8 #### [facility] CLIA [id number] [address] [place] [address] [place] Neutrophils/100 WBC (Bld) 58.2 % Normal [facility] Comment on above: Order Comment: Speci men Type: BLOOD SPECIMEN Ordering Facility: External Submitter Address: , , Performed By: #### 5 7021-8 #### [facility] CLIA [id number] [address] [place] [address] [place] Nucleated RBC (Bld) [#/Vol] 10*3/uL Normal <0.01 [facility] Comment on above: Order Comment: Speci men Type: BLOOD SPECIMEN Ordering Facility: External Submitter Address: , , Performed By: #### 5 7021-8 #### [facility] CLIA [id number] [address] [place] [address] [place] Nucleated RBC/100 WBC (Bld) [Ratio] 0.0 /100 WBC Normal [facility] Comment on above: Order Comment: Speci men Type: BLOOD SPECIMEN Ordering Facility: External Submitter Address: , , Performed By: #### 5 7021-8 #### [facility] CLIA [id number] [address] [place] [address] [place] Platelet mean volume (Bld) [Entitic vol] 9.1 fL Normal 9.0-12.7 [facility] Comment on above: Order Comment: Speci men Type: BLOOD SPECIMEN Ordering Facility: External Submitter Address: , , Performed By: #### 5 7021-8 #### [facility] CLIA [id number] [address] [place] [address] [place] Platelets (Bld) [#/Vol] 166 10*3/uL Normal 150-400 [facility] Comment on above: Order Comment: Speci men Type: BLOOD SPECIMEN Ordering Facility: External Submitter Address: , , Performed By: #### 5 7021-8 #### [facility] CLIA [id number] [address] [place] [address] [place] Platelets Estimate (Bld) [#/Vol] Adequate Normal [facility] Comment on above: Order Comment: Speci men Type: BLOOD SPECIMEN Ordering Facility: External Submitter Address: , , Performed By: #### 5 7021-8 #### [facility] CLIA [id number] [address] [place] [address] [place] RBC (Bld) [#/Vol] 2.79 10*6/uL Low 4.20-6.00 [facility] Comment on above: Order Comment: Speci men Type: BLOOD SPECIMEN Ordering Facility: External Submitter Address: , , Performed By: #### 5 7021-8 #### [facility] CLIA [id number] [address] [place] [address] [place] RED CELL MORPH Reviewed: unremarkable Normal [facility] Comment on above: Order Comment: Speci men Type: BLOOD SPECIMEN Ordering Facility: External Submitter Address: , , Performed By: #### 5 7021-8 #### [facility] CLIA [id number] [address] [place] [address] [place] WBC (Bld) [#/Vol] 3.40 10*3/uL Low 3.70-11.00 [facility] Comment on above: Order Comment: Speci men Type: BLOOD SPECIMEN Ordering Facility: External Submitter Address: , , Performed By: #### 5 7021-8 #### [facility] CLIA [id number] [address] [place] [address] [place] Comprehensive metabolic 2000 panelon 07-31-2023 Albumin [Mass/Vol] 3.8 g/dL Low 3.9-4.9 [facility] Comment on above: Order Comment: Speci men Type: BLOOD SPECIMEN Ordering Facility: External Submitter Address: , , Performed By: #### 2 4323-8, 302-7, 3015-3 #### [facility] CLIA [id number] [address] [place] [address] [place] ALP [Catalytic activity/Vol] 132 U/L High 38-113 [facility] Comment on above: Order Comment: Speci men Type: BLOOD SPECIMEN Ordering Facility: External Submitter Address: , , Performed By: #### 2 4323-8, 7, 3 #### [facility] CLIA [id number] [address] [place] ALT [Catalytic activity/Vol] 9 U/L Low 10-54 [facility] Comment on above: Order Comment: Speci men Type: BLOOD SPECIMEN Ordering Facility: External Submitter Address: , , Performed By: #### 2 4323-8, 3024-03, 3015-11 #### [facility] CLIA [id number] [address] [place] Anion gap [Moles/Vol] 15 mmol/L Normal 9-18 [facility] Comment on above: Order Comment: Speci men Type: BLOOD SPECIMEN Ordering Facility: External Submitter Address: , , Performed By: #### 2 4323-8, 7, 3 #### [facility] CLIA [id number] [address] [place] [id number] [place] AST [Catalytic activity/Vol] 16 U/L Normal 14-40 [facility] Comment on above: Order Comment: Speci men Type: BLOOD SPECIMEN Ordering Facility: External Submitter Address: , , Performed By: #### 2 4323-8, 7, 3 #### [facility] CLIA [id number] [address] [address] [place] Bilirubin [Mass/Vol] 0.4 mg/dL Normal 0.2-1.3 [facility] Comment on above: Order Comment: Speci men Type: BLOOD SPECIMEN Ordering Facility: External Submitter Address: , , Performed By: #### 2 4323-8, 3024-03, 3 #### [facility] CLIA [id number] [address] [address] [place] Calcium [Mass/Vol] 9.6 mg/dL Normal 8.5-10.2 [facility] Comment on above: Order Comment: Speci men Type: BLOOD SPECIMEN Ordering Facility: External Submitter Address: , , Performed By: #### 2 4323-8, 3024-03, 3 #### [facility] CLIA [id number] [address] [place] [id number] [place] Chloride [Moles/Vol] 99 mmol/L Normal 97-105 [facility] Comment on above: Order Comment: Speci men Type: BLOOD SPECIMEN Ordering Facility: External Submitter Address: , , Performed By: #### 2 4323-8, 3024-03, 3 #### [facility] CLIA [id number] [address] [address] [place] CO2 [Moles/Vol] 23 mmol/L Normal 22-30 [facility] Comment on above: Order Comment: Speci men Type: BLOOD SPECIMEN Ordering Facility: External Submitter Address: , , Performed By: #### 2 4323-8, 3024-03, 3 #### [facility] CLIA [id number] [address] [address] [place] Creatinine [Mass/Vol] 1.23 mg/dL High 0.73-1.22 [facility] Comment on above: Order Comment: Gee vang Type: BLOOD SPECIMEN Ordering Facility: External Submitter Address: , , Performed By: #### 2 4323-8, 3024-7, 6-3 #### [facility] CLIA [id number] [address] [place] [address] [place] Creatinine and Glomerular filtration rate.predicted panel (S/P/Bld) 61 mL/min/1.73m??? Normal >=60 [facility] Comment on above: Order [...] GFR. Performed By: #### 2 4323-8, 3024-7, 6-3 #### [facility] CLIA [id number] [address] [place] [address] [place] Glucose [Mass/Vol] 139 mg/dL High 74-99 [facility] Comment on above: Order Comment: Gee vang Type: BLOOD SPECIMEN Ordering Facility: External Submitter Address: , , Result Comment: The [place] Diabetes Association (ADA) provides guidance for cutoff [...] Standards of Medical Care in Diabetes 2016, [place] [employer] Association. Diabetes Care. 2016.39(Suppl 1). Performed By: #### 2 4323-8, 3024-03, 3 #### [facility] CLIA [id number] [address] [place] [id number] [place] Potassium [Moles/Vol] 4.0 mmol/L Normal 3.7-5.1 [facility] Comment on above: Order Comment: Speci men Type: BLOOD SPECIMEN Ordering Facility: External Submitter Address: , , Performed By: #### 2 432-8, 3024-03, 3015-11 #### [facility] CLIA [id number] [address] [place] [id number] [place] Protein [Mass/Vol] 7.7 g/dL Normal 6.3-8.0 [facility] Comment on above: Order Comment: Speci men Type: BLOOD SPECIMEN Ordering Facility: External Submitter Address: , , Performed By: #### 2 432-8, 3024-03, 3015-11 #### [facility] CLIA [id number] [address] [place], [place] [id number] [place] Sodium [Moles/Vol] 137 mmol/L Normal 136-144 [facility] Comment on above: Order Comment: Speci men Type: BLOOD SPECIMEN Ordering Facility: External Submitter Address: , , Performed By: #### 2 4323-8, 3024-03, 3015-11 #### [facility] CLIA [id number] [address] [place], [place] [id number] [place] Urea nitrogen [Mass/Vol] 19 mg/dL Normal 9-24 [facility] Comment on above: Order Comment: Speci men Type: BLOOD SPECIMEN Ordering Facility: External Submitter Address: , , Performed By: #### 2 4323-8, 3024-03, 3015-11 #### [facility] CLIA [id number] [address] [place] [id number] [place] T4 Free SerPl-mCncon 07-2 023 Free T4 [Mass/Vol] 1.1 ng/dL Normal 0.9-1.7 [facility] Comment on above: Order Comment: Speci men Type: BLOOD SPECIMEN Ordering Facility: External Submitter Address: , , Performed By: #### 2 4323-8, 3024-7, 3016-3 #### [facility] CLIA [id number] [address] [place] [address] OF [facility] TSH SerPl-aCncon 07-31-2023 TSH Qn 4.190 m[IU]/L Normal 0.270-4.20 0 [facility] Comment on above: Order Comment: Speci men Type: BLOOD SPECIMEN Ordering Facility: External Submitter Address: , , Performed By: #### 2 4323-8, 3024-7, 3016-3 #### [facility] CLIA [id number] [address] [place] [address] OF [facility] Ambulatory Visit Summaryon 1 Ambulatory Visit Summary NEIL WILCOX M :1945 Visit Date:07/09/2023 Ambulatory Visit Instructions Your [...] spironolactone (spironolactone 25 mg Tab) thyroid desiccated (Webb Thyroid) Procedures Performed Urethral dilatation (11/03/2022), TURP [...] months Where: [facility] [address] , [place] [address]- Medications What How Much When Instructions Changed tolterodine (tolterodine 2 mg Cap-ER) 1 Capsules By Mouth Every day Pickup at [facility]/pharmacy #[id number] Unchanged APAP/ butalbital/ caffeine (APAP/ butalbital/ caffeine [...] if questions or concerns Unchanged thyroid desiccated (Webb Thyroid) By Mouth Every day Contact prescribing physician if questions or concerns Pharmacy Information [facility]/pharmacy #[id number]: [address], [place] [phone] Allergies No Known Allergies Problems Ongoing - [...] This condi (more content not included)... Normal [facility] Patient Educationon 07-09-20 Patient Education [...] Follow these instructions at home: ? Take hlqw-wqe-azsrvex and prescription medicines only as told by [...] the medicine (more content not included)... Normal [facility] Urology Office/Clinic Noteon 07-09-2023 Urology [...] months [facility] [address], [place] [address]- Additional Instructions: Patient Education Benign Prostatic Hyperplasia [...] Medications APAP/butalbital/caffeine 325 mg-50 mg-40 mg Tab Webb Thyroid, Oral, Daily atorvastatin, Oral, Daily Butapap cat 40mg PRN CVS B-12 1,000 MCG TABLET, 0 doxazosin 4 mg Tab Eliquis 5 mg oral tablet FLUoxet (more content not included)... Normal [facility] Comment on above: Result Comment: Elec [...] Orders Anemia Complete Blood Count; Status:Active; Requested for:[id number]; Atrial fibrillation, currently in sinus rhythm, Frequent falls Cardiology - Valve and Structural Heart Program Referral Evaluation and Treatment Evaluate AND Treat Status: Hold For - Scheduling Requested for: [id number] SocHx: Former smoker Tobacco Use Screening; Status:Complete; Done: [id number] Patient Instructions Please bring all medicines, vitamins, [...] up in 3 months Chief Complaint NEIL SAUCEDOUBB is being seen for a 3 month follow-up of. History of Present Illness 77-year-old with history of atrial fibrillation, hypercoagulability related to atrial fibrillation, high ADQ1OS9-JYXq score, most recently seen February 2023 and [...] due to atrial fibrillation, on anticoagulation. 10. [id number]-LRVm at least 5. Has bled score 2 insurance changed, now able to afford [employer]. 11. Frequent falls, risk of injury due [...] cuff rep (more content not included)... Normal [facility] Tobacco Screening.on 023 Fall risk assessment b) One or more fall s in the last year [facility] [employer] 250 DO Work Phone: Tobacco use status CP b) No [facility] [employer] 250 DO Work Phone: Tobacco Screening. Yes [facility] [employer]un 250 DO Work Phone: Patient Educationon 04-03-20 [...] provider. Document Revised: 01/19/2022 Document Reviewed: 01/19/2022 [employer] Patient Education ? 2022 [employer]. Ray [facility] Urology Office/Clinic Noteon 04-03-2023 Urology Office/Clinic [...] Contact Information RITESH ALTAMIRANO, CHARLOTTE Meneses, URL [address] [place] [address] Additional Instructions: keep appt w/ Patient Education [...] Shoulder replacement. Medications amLODIPine 5 mg Tab Webb Thyroid, Oral, Daily aspirin 81 mg oral [...] vaccine 07/12/ more content not included)... Normal [facility] Comment [...] ischemic attack) Complete Blood Count; Status:Active; Requested for:[id number]; Comprehensive Metabolic Panel; Status:Active; Requested for:26Feb2023; Lipid [...] Once daily Device check as directed per [facility] protocol Chief Complaint NEIL WILCOX is [...] due to atrial fibrillation, on anticoagulation. 10. [id number]-QHJm at least 5. Has bled score 2 insurance changed, now able to afford EliSpinal Modulation. 1 Recommendations: 1. Decrease metoprolol succinate to [...] losartan in (more content not included)... Normal [facility] Tobacco Screening.on 023 Fall risk assessment b) One or more fall s in the last year [facility] [employer] 250 DO Work Phone: Tobacco use status [facility] b) No [facility] [employer] 250 DO Work Phone: Patient Educationon 01-24-20 [...] conditioner or fan, if available. ? Apply eugh-nbd-bbpfjuw and prescription medicines only as told by [...] well after activity or exercise. Use a fine hairer on a cool setting to dry between [...] your skin and with medicines. ? Apply vbvs-bcw-wgdgtlp and prescription medicines only as told by your health care provider. ? Keep all follow-up visits as told by your health care provider. This is important. This information is not intended to replace advice given to you by your health care provider. Make sure you discuss any questions you have with your health care provider. Document Revised: 06/26/2022 Document Reviewed: 06/26/2022 [employer] Patient Education ? 2022 [employer]. Ray [facility] Urology Office/Clinic Noteon 01-23-2023 Urology [...] E&M of Est. Patient Low 20-29 Min 85891 Orders: Urnls Dip Stick Auto w/o Microscopy POC [id number] Follow-up No qualifying data available f/u LUI [...] Shoulder replacement. Medications amLODIPine 5 mg Tab Webb Thyroid, Oral, Daily aspirin 81 mg oral [...] Dipstick: 1+ (30 mg/dl) (01/23/23 14:11:00) Specific [place] Urine Dipstick: >=1.030 (01/23/23 14:11:00) Urine Appearance Urine Dipstick: Clear (01/23/23 14:11:00) Urine Color Urine Dipstick: Yellow (01/23/23 14:11:00) Urobilinogen Urine Dipstick: Normal 0.2-1 EU/dl (01/23/23 14:11:00) pH Urine Dipstick: 5.5 (01/23/23 14:11:00) Normal [facility] Comment on above: Result Comment: Elec tronically Signed By: CHARLOTTE BAKER PA-C.gabino\Date and Time Signed: 01/23/23 14:45 EDT Patient [...] Follow these instructions at home: ? Take cwfe-hbz-jjmlfsb and prescription medicines only as told by [...] 10/06/2016 Document Revised: 04/23/2019 Document Reviewed: 04/23/2019 [employer] Patient Education ? 2019 [employer]. [facility] Urology Office/Clinic Noteon 01-01-2023 Urology [...] [facility] [address], [place] [address]- Additional Instructions: 6 mos with UA Patient [...] Shoulder replacement. Medications amLODIPine 5 mg Tab Webb Thyroid, Oral, Daily aspirin 81 mg oral [...] vaccine 03/ (more content not included)... Normal [facility] Comment [...] in adult Healthy Weight Tips; Status:Complete; Done: [id number] Patient Instructions Please bring all medicines, vitamins, [...] Complaint One week f/u medication reconciliation. NEIL JERI is being seen for a 1 week [...] MG Oral TabletTAKE 1 TABLET AT BEDTIME. Cmjdgugydz-WDXG-Ihjhszje 50-325-40 MG Oral TabletTAKE 1 TABLET 3 [...] PM Social (more content not included)... Normal [facility] Tobacco Screening.on 023 Fall risk assessment a) No falls within the last year [facility]un 250 DO Work Phone: Tobacco use status [facility] b) No -[facility] jaun 250 DO Work Phone: Office Visit (Cardiology)on [...] the time of your visit. 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 Hxmnornwgr-DNEE-Kjinvvhj 50-325-40 MG Oral TabletTAKE 1 TABLET 3 [...] Caffeine us (more content not included)... Normal [employer] Tobacco Screening.on 023 Adult depression screening assessment No [employer] DO Work Phone: Fall risk assessment a) No falls within the last year [employer] DO Work Phone: Tobacco use status [facility] b) No [employer] DO Work Phone: Office Visit (Cardiology)on 09-11-2022 Follow-up visit Diagnoses/Problems Assessed Hypertension (401.9) (I10) Overweight with body mass index (BMI) of 25 to 25.9 in adult (278.02,V85.21) (E66.3,Z68.25) Former smoker (V15.82) (Z87.891) Quit 1959' Orders Hypertension Start: Doxazosin Mesylate 4 MG Oral Tablet; TAKE 1 TABLET DAILY Overweight with body mass index (BMI) of 25 to 25.9 in adult Healthy Weight Tips; Status:Complete; Done: 13Lhb2966 Some eating tips that can help you lose weight.; Status:Complete; Done: 05Dqq3787 SocHx: Former smoker Tobacco Use Screening; Status:Complete; Done: 92Jrg4121 Chief Complaint NEIL WILCOX is being seen for hypertension. Current Meds Medication NameInstruction amLODIPine Besylate 10 MG Oral TabletTAKE 1 TABLET DAILY. Atorvastatin Calcium 40 MG Oral TabletTAKE 1 TABLET AT BEDTIME. Qayilgslfu-ZXEO-Naysbsqj 50-325-40 MG Oral TabletTAKE 1 TABLET 3 [...] as previously mentioned Vitals Vital Signs Recorded: 59Has0000 01:07PMRecorded: 59Spv6683 01:00PM Systolic Glsvv228, LUE Diastolic Lying84, LUE Systolic Xsittsz923, LUE Diastolic Vbzwdwd23, LUE Systolic Uqcaynen410, LUE Diastolic Bxhtcwgr67, LUE Heart Rate62, L Radial Height5 ft 9 in Xjdcza426 lb BMI Tbuhmwdcux60.99 kg/m2 BSA Calculated1.96 Physical Exam GENERAL: Well [...] spec) Not detected Normal NOT DETECTED [facility] Comment on above: Result Comment: This test is not yet approved or cleared by the [place] FDA. When there are no FDA-approved or cleared tests available, and other criteria are met, FDA can make tests available under an emergency access mechanism called an Emergency Use Authorization (EUA). The EUA for this test is supported by the [place] of Health and Human Service's (HHS's) declaration [...] By: #### T SH, LIPID, CMP #### [facility] [address] [address] [address] Oscar Paulino Office Visit (Cardiology)on 08-28-2022 [...] TABLET DAILY Basic Metabolic Panel; Status:Active; Requested for:58Rtl2969; Overweight with body mass index (BMI) of 25 to 25.9 in adult Start: Spironolactone 25 MG Oral Tablet; TAKE 1 TABLET DAILY Healthy Weight Tips; Status:Complete; Done: 71Cdi5200 Some eating tips that can help you lose weight.; Status:Complete; Done: 33Qxe0752 Paroxysmal atrial fibrillation with RVR Start: Eliquis [...] these medications, (more content not included)... Normal [facility] Tobacco Screening.on 022 Fall risk assessment b) One or more fall s in the last year [facility] [employer] 250 DO Work Phone: Tobacco use status [facility] b) No [facility] 250 DO Work Phone: LIPID PROFILEon 08-25-2022 CHOL-HDL RATIO NORM SEE BELOW Normal [facility] Comment on above: Result Comment: 3.3 - 4.4 LOW RISK 4.4 - 7.1 AVERAGE RISK 7.1 - 11.0 MODERATE RISK >11.0 HIGH RISK Performed By: #### T SH, LIPID, CMP #### [facility] [address] [place] [address] Dr. Oscar Paulino Cholesterol [Mass/Vol] 121 mg/dL Normal <=200 [facility] Comment on above: Performed By: #### T MANJIT, LIPID, CMP #### [facility] [address] [place] [address] Dr. Oscar Paulino Cholesterol in HDL [Mass/Vol] 42 mg/dL Normal 40-60 [facility] Comment on above: Performed By: #### T MANJIT, LIPID, CMP #### [facility] [address] [address] [address] Oscar Paulino Cholesterol in LDL [Mass/Vol] 66.2 mg/dL Normal [facility] Comment on above: Performed By: #### T SH, LIPID, CMP #### [facility] [address] [address] [address] Oscar Paulino Cholesterol.total/Chol esterol in HDL [Mass ratio] 2.9 {ratio} Normal [facility] Comment on above: Performed By: #### T SH, LIPID, CMP #### [facility] [address] [address] [address] Oscar Paulino HDL NORMAL > or = 60 mg/dl - LO W CARDIOVASCULAR RISK <40 mg/dl - HIGH CARDIOVASCULAR RISK Normal [facility] Comment on above: Performed By: #### T MANJIT, LIPID, CMP #### [facility] [address] [address] [address] Oscar Paulino LDL CALC NORMAL SEE BELOW Normal [facility] Comment on above: Result Comment: <100 mg/dl OPTIMAL 100 - 129 mg/dl NEAR OR ABOVE OPTIMAL 130 - 159 mg/dl BORDERLINE HIGH 160 - 189 mg/dl HIGH >190 mg/dl VERY HIGH Performed By: #### T MANJIT, LIPID, CMP #### [facility] [address] [address] [address] Oscar Paulino Triglyceride [Mass/Vol] 64 mg/dL Normal <=150 [facility] Comment on above: Performed By: #### T MANJIT, LIPID, CMP #### [facility] [address] [place] [address] Dr. Oscar Paulino VLDL CALC 12.8 mg/dL Normal [facility] Comment on above: Performed By: #### T MANJIT, LIPID, CMP #### [facility] [address] [place] [address] Dr. Oscar Paulino PROF 14(COMP METB)on 022 Albumin [Mass/Vol] 3.6 g/dL Normal 3.4-5.0 [facility] Comment on above: Performed By: #### T MANJIT, LIPID, CMP #### [facility] [address] [place] [address] Dr. Oscar Paulino Albumin/Globulin [Mass ratio] 0.8 {ratio} Normal [facility] Comment on above: Performed By: #### T MANJIT, LIPID, CMP #### [facility] [address] [place] [address] Dr. Oscar Paulino ALP [Catalytic activity/Vol] 92 U/L Normal 46-116 [facility] Comment on above: Performed By: #### T MANJIT, LIPID, CMP #### [facility] [address] [place] [address] Dr. Oscar Paulino ALT [Catalytic activity/Vol] 17 U/L Normal 16-63 [facility] Comment on above: Performed By: #### T MANJIT, LIPID, CMP #### [facility] [address] [place] [address] Dr. Oscar Paulino Anion gap [Moles/Vol] 9.7 mmol/L Normal [facility] Comment on above: Performed By: #### T MANJIT, LIPID, CMP #### [facility] [address] [place] [address] Dr. Oscar Paulino AST [Catalytic activity/Vol] 10 U/L Critically low 15-37 [facility] Comment on above: Performed By: #### T MANJIT LIPID, CMP #### [facility] [address] [place] [address] Dr. Oscar Paulino Bilirubin [Mass/Vol] 0.3 mg/dL Normal 0.2-1.0 [facility] Comment on above: Performed By: #### T MANJIT LIPID, CMP #### [facility] [address] [place] [address] Dr. Oscar Paulino Calcium [Mass/Vol] 9.4 mg/dL Normal 8.5-10.1 [facility] Comment on above: Performed By: #### T MANJIT LIPID, CMP #### [facility] [address] [place] [address] Dr. Oscar Paulino Chloride [Moles/Vol] 102 mmol/L Normal 98-107 [facility] Comment on above: Performed By: #### T MANJIT, LIPID, CMP #### [facility] [address] [place] [address] Dr. Oscar Paulino CO2 [Moles/Vol] 29.1 mmol/L Normal 21.0-32.0 [facility] Comment on above: Performed By: #### T MANJIT, LIPID, CMP #### [facility] [address] [place] [address] Dr. Oscar Paulino Creatinine [Mass/Vol] 1.08 mg/dL Normal 0.70-1.30 [facility] Comment on above: Performed By: #### T MANJIT, LIPID, CMP #### [facility] [address] [address] [address] Oscar Paulino EGFR-AF JORDANIAN >60 Normal >=60 [facility] Comment on above: Performed By: #### T MANJIT, LIPID, CMP #### [facility] [address] [address] [address] Oscar Paulino EGFR-NON AF JORDANIAN >60 Normal >=60 [facility] Comment on above: Performed By: #### T SH, LIPID, CMP #### [facility] [address] [address] [address] Oscar Paulino Globulin (S) [Mass/Vol] 4.3 g/dL Normal [facility] Comment on above: Performed By: #### T MANJIT, LIPID, CMP #### [facility] [address] [place] [address] Dr. Oscar Paulino Glucose [Mass/Vol] 104 mg/dL Normal 74-106 [facility] Comment on above: Performed By: #### T MANJIT, LIPID, CMP #### [facility] [address] [place] [address] Dr. Oscar Paulino Potassium [Moles/Vol] 3.8 mmol/L Normal 3.5-5.1 [facility] Comment on above: Performed By: #### T MANJIT, LIPID, CMP #### [facility] [address] [place] [address] Dr. Oscar Paulino Protein [Mass/Vol] 7.9 g/dL Normal 6.4-8.2 [facility] Comment on above: Performed By: #### T MANJIT, LIPID, CMP #### [facility] [address] [place] [address] Dr. Oscar Paulino Sodium [Moles/Vol] 137 mmol/L Normal 136-145 [facility] Comment on above: Performed By: #### T SH, LIPID, CMP #### [facility] [address] [place] [address] Dr. Oscar Paulino Urea nitrogen [Mass/Vol] 18.0 mg/dL Normal 7.0-18.0 [facility] Comment on above: Performed By: #### T MANJIT, LIPID, CMP #### [facility] [address] [place] [address] Dr. Oscar Paulino Urea nitrogen/Creatinine [Mass ratio] 16.7 mg/mg Normal [facility] Comment on above: Performed By: #### T SH, LIPID, CMP #### [facility] [address] [place] [address] Dr. Oscar Paulino TSHon 08-25-2022 TSH 2.967 uIU/mL Normal 0.358-3.74 0 [facility] Comment on above: Performed By: #### T SH, LIPID, CMP #### [facility] [address] [place] [address] Dr. Oscar Paulino CBC AUTO DIFFon 08-22-2022 BASO # 0.0 103/ul Normal 0.0-0.1 [facility] Comment on above: Performed By: #### T SH, LIPID, CMP #### [facility] [address] [place] [address] Dr. Oscar Paulino Basophils/100 WBC (Bld) 0.3 % Normal 0.2-2.0 [facility] Comment on above: Performed By: #### T SH, LIPID, CMP #### [facility] [address] [place] [address] Dr. Oscar Paulino EO # 0.3 103/ul Normal 0.0-0.7 [facility] Comment on above: Performed By: #### T SH, LIPID, CMP #### [facility] [address] [address] [address] Oscar Paulino Eosinophils/100 WBC (Bld) 7.3 % Critically high 0.9-7.0 [facility] Comment on above: Performed By: #### T SH, LIPID, CMP #### [facility] [address] [place] [address] Dr. Oscar Paulino Erythrocyte distribution width (RBC) [Ratio] 11.9 % Normal 11.0-15.0 [facility] Comment on above: Performed By: #### T SH, LIPID, CMP #### [facility] [address] [place] [address] Dr. Oscar Paulino Hematocrit (Bld) [Volume fraction] 33.8 % Critically low 42.0-54.0 [facility] Comment on above: Performed By: #### T MANJIT, LIPID, CMP #### [facility] [address] [place] [address] Dr. Oscar Paulino Hemoglobin (Bld) [Mass/Vol] 12.0 g/dL Critically low 14.0-18.0 [facility] Comment on above: Performed By: #### T SH, LIPID, CMP #### [facility] [address] [place] [address] Dr. Oscar Paulino IG # 0.01 10e3/ul Normal 0.00-0.03 [facility] Comment on above: Performed By: #### T MANJIT LIPID, CMP #### [facility] [address] [place] [address] Dr. Oscar Paulino IG % 0.3 % Normal 0.0-0.5 [facility] Comment on above: Performed By: #### T MANJIT LIPID, CMP #### [facility] [address] [place] [address] Dr. Oscar Paulino LYMPH # 1.4 103/ul Normal 1.2-3.8 The [facility] Comment on above: Performed By: #### T MANJIT LIPID, CMP #### [facility] [address] [place] [address] Dr. Oscar Paulino Lymphocytes/100 WBC (Bld) 39.2 % Normal 20.5-60.0 [facility] Comment on above: Performed By: #### T MANJIT, LIPID, CMP #### [facility] [address] [place] [address] Dr. Oscar Paulino MANUAL DIFF REQ NO Normal The [facility] Comment on above: Performed By: #### T SH, LIPID, CMP #### [facility] [address] [place] [address] Dr. Oscar Paulino MCH (RBC) [Entitic mass] 36.4 pg Critically high 25.9-34.0 [facility] Comment on above: Performed By: #### T SH, LIPID, CMP #### [facility] [address] [place] [address] Dr. Oscar Paulino MCHC (RBC) [Mass/Vol] 35.5 g/dL Critically high 29.9-35.2 The [facility] Comment on above: Performed By: #### T SH, LIPID, CMP #### [facility] [address] [address] [address] Oscar Paulino MCV (RBC) [Entitic vol] 102.4 fL Critically high 80.0-94.0 The [facility] Comment on above: Performed By: #### T SH, LIPID, CMP #### [facility] [address] [place] [address] Dr. Oscar Paulino MONO # 0.2 103/ul Critically low 0.3-0.8 The [facility] Comment on above: Performed By: #### T SH, LIPID, CMP #### [facility] [address] [place] [address] Dr. Oscar Paulino Monocytes/100 WBC (Bld) 6.8 % Normal 1.7-12.0 The [facility] Comment on above: Performed By: #### T SH, LIPID, CMP #### [facility] [address] [place] [address] Dr. Oscar Paulino NEUT # 1.6 103/ul Normal 1.4-6.5 The [facility] Comment on above: Performed By: #### T SH, LIPID, CMP #### [facility] [address] [place] [address] Dr. Oscar Paulino Neutrophils/100 WBC (Bld) 46.1 % Normal 43.0-75.0 The [facility] Comment on above: Performed By: #### T SH, LIPID, CMP #### [facility] [address] [place] [address] Dr. Oscar Paulnio Platelet mean volume (Bld) [Entitic vol] 8.5 fL Critically low 9.5-13.5 The [facility] Comment on above: Performed By: #### T SH, LIPID, CMP #### [facility] [address] [place] [address] Dr. Oscar Paulino PLT 191 103/ul Normal 150-450 The [facility] Comment on above: Performed By: #### T SH, LIPID, CMP #### [facility] [address] [address] [address] Oscar Paulino RBC 3.30 106/ul Critically low 4.70-6.10 The [facility] Comment on above: Performed By: #### T SH, LIPID, CMP #### [facility] [address] [address] [address] Oscar Paulino WBC 3.6 103/ul Critically low 4.0-11.0 [facility] Comment on above: Performed By: #### T SH, LIPID, CMP #### [facility] [address] [address] [address] Oscar Paulino PROF CHEM 8 (BAS METB)on Anion gap [Moles/Vol] 11.0 mmol/L Normal [facility] Comment on above: Performed By: #### B MP #### [facility] [address] [place] [address] Dr. Oscar Paulino Calcium [Mass/Vol] 9.4 mg/dL Normal 8.5-10.1 [facility] Comment on above: Performed By: #### B MP #### [facility] [address] [place] [address] Dr. Oscar Paulino Chloride [Moles/Vol] 103 mmol/L Normal 98-107 The [facility] Comment on above: Performed By: #### B MP #### [facility] [address] [address] [address] Oscar Paulino CO2 [Moles/Vol] 27.7 mmol/L Normal 21.0-32.0 The [facility] Comment on above: Performed By: #### B MP #### [facility] [address] [place] [address] Dr. Oscar Paulino Creatinine [Mass/Vol] 1.07 mg/dL Normal 0.70-1.30 The [facility] Comment on above: Performed By: #### B MP #### [facility] [address] [place] [address] Dr. Oscar Paulino EGFR-AF JORDANIAN >60 Normal >=60 The [facility] Comment on above: Performed By: #### B MP #### [facility] [address] [address] [address] Oscar Paulino EGFR-NON AF JORDANIAN >60 Normal >=60 [facility] Comment on above: Performed By: #### B MP #### [facility] [address] [address] [address] Oscar Paulino Glucose [Mass/Vol] 99 mg/dL Normal 74-106 [facility] Comment on above: Performed By: #### B MP #### [facility] [address] [address] [address] Oscar Paulino Potassium [Moles/Vol] 3.7 mmol/L Normal 3.5-5.1 [facility] Comment on above: Performed By: #### B MP #### [facility] [address] [address] [address] Oscar Paulino Sodium [Moles/Vol] 138 mmol/L Normal 136-145 [facility] Comment on above: Performed By: #### B MP #### [facility] [address] [address] [address] Oscar Paulino Urea nitrogen [Mass/Vol] 20.0 mg/dL Critically high 7.0-18.0 [facility] Comment on above: Performed By: #### B MP #### [facility] [address] [address] [address] Oscar Paulino Urea nitrogen/Creatinine [Mass ratio] 18.7 mg/mg Normal The [facility] Comment on above: Performed By: #### B MP #### [facility] [address] [address] [address] Oscar Paulino PROTIMEon 08-22-2022 INR Coag (PPP) [Relative time] 1.06 {INR} Normal [facility] Comment on above: Performed By: #### P T, PTT #### [facility] [address] [address] [address] Oscar Paulino INR GUIDELINES SEE BELOW Normal The [facility] Comment on above: Result Comment: ELYSIA RED INR: 2.0 - 3.0 CONDITIONS NOT LISTED BELOW 2.5 - 3.5 FOR PROSTHETIC HEART VALVE REPLACEMENT 2.5 - 3.5 RECURRENT THROMBOSIS Performed By: #### P T, PTT #### [facility] [address] [place] [address] Dr. Oscar Paulino PT Coag (PPP) [Time] 11.4 s Normal 9.0-11.6 [facility] Comment on above: Performed By: #### P T, PTT #### [facility] [address] [place] [address] Dr. Oscar Paulino PTTon 08-22-2022 aPTT Coag (Bld) [Time] 26.6 s Normal 22.3-36.2 Th e [facility] Comment on above: Performed By: #### P T, PTT #### [facility] [address] [place] [address] Dr. Oscar Paulino Covid-19 PCR (CVDTB)on 06-25 SARS-CoV-2 (COVID-19) RNA KEIKO+probe Ql (Unsp spec) Not detected Normal NOT DETECTED The [facility] Comment on above: Result Comment: This test is not yet approved or cleared by the [place] FDA. When there are no FDA-approved or cleared tests available, and other criteria are met, FDA can make tests available under an emergency access mechanism called an Emergency Use Authorization (EUA). The EUA for this test is supported by the [place] of Health and Human Service's (HHS's) declaration [...] SARS-CoV-2. Performed By: #### C VDTBH #### [facility] [address] [place] [address] Dr. Oscar Paulino Covid-19 PCR (CVDTBH)on SARS-CoV-2 (COVID-19) RNA KEIKO+probe Ql (Unsp spec) Not detected Normal NOT DETECTED The [facility] Comment on above: Result Comment: This test is not yet approved or cleared by the [place] FDA. When there are no FDA-approved or cleared tests available, and other criteria are met, FDA can make tests available under an emergency access mechanism called an Emergency Use Authorization (EUA). The EUA for this test is supported by the [place] of Health and Human Service's (HHS's) declaration [...] SARS-CoV-2. Performed By: #### C VDTBH #### [facility] [address] [place] [address] Dr. Oscar Paulino CBC AUTO DIFFon 06-28-2022 BASO # 0.0 103/ul Normal 0.0-0.1 [facility] Comment on above: Performed By: #### T SH, LIPID, CMP #### [facility] [address] [place] [address] Dr. Oscar Paulino Basophils/100 WBC (Bld) 0.4 % Normal 0.2-2.0 [facility] Comment on above: Performed By: #### T SH, LIPID, CMP #### [facility] [address] [place] [address] Dr. Oscar Paulino EO # 0.2 103/ul Normal 0.0-0.7 [facility] Comment on above: Performed By: #### T SH, LIPID, CMP #### [facility] [address] [place] [address] Dr. Oscar Paulino Eosinophils/100 WBC (Bld) 7.5 % Critically high 0.9-7.0 The [facility] Comment on above: Performed By: #### T MANJIT LIPID, CMP #### [facility] [address] [place] [address] Dr. Oscar Paulino Erythrocyte distribution width (RBC) [Ratio] 12.3 % Normal 11.0-15.0 [facility] Comment on above: Performed By: #### T SH LIPID, CMP #### [facility] [address] [place] [address] Dr. Oscar Paulino Hematocrit (Bld) [Volume fraction] 34.0 % Critically low 42.0-54.0 The [facility] Comment on above: Performed By: #### T MANJIT LIPID, CMP #### [facility] [address] [place] [address] Dr. Oscar Paulino Hemoglobin (Bld) [Mass/Vol] 11.6 g/dL Critically low 14.0-18.0 [facility] Comment on above: Performed By: #### T MANJIT LIPID, CMP #### [facility] [address] [place] [address] Dr. Oscar Paulino IG # 0.00 10e3/ul Normal 0.00-0.03 The [facility] Comment on above: Performed By: #### T MANJIT LIPID, CMP #### [facility] [address] [place] [address] Dr. Oscar Paulino IG % 0.0 % Normal 0.0-0.5 The [facility] Comment on above: Performed By: #### T SH LIPID, CMP #### [facility] [address] [place] [address] Dr. Oscar Paulino LYMPH # 1.0 103/ul Critically low 1.2-3.8 The [facility] Comment on above: Performed By: #### T SH, LIPID, CMP #### [facility] [address] [place] [address] Dr. Oscar Paulino Lymphocytes/100 WBC (Bld) 40.1 % Normal 20.5-60.0 The [facility] Comment on above: Performed By: #### T SH, LIPID, CMP #### [facility] [address] [place] [address] Dr. Oscar Paulino MANUAL DIFF REQ NO Normal The [facility] Comment on above: Performed By: #### T SH, LIPID, CMP #### [facility] [address] [place] [address] Dr. Oscar Paulino MCH (RBC) [Entitic mass] 35.7 pg Critically high 25.9-34.0 The [facility] Comment on above: Performed By: #### T SH, LIPID, CMP #### [facility] [address] [place] [address] Dr. Oscar Paulino MCHC (RBC) [Mass/Vol] 34.1 g/dL Normal 29.9-35.2 The [facility] Comment on above: Performed By: #### T SH, LIPID, CMP #### [facility] [address] [place] [address] Dr. Oscar Paulino MCV (RBC) [Entitic vol] 104.6 fL Critically high 80.0-94.0 [facility] Comment on above: Performed By: #### T SH, LIPID, CMP #### [facility] [address] [place] [address] Dr. Oscar Paulino MONO # 0.2 103/ul Critically low 0.3-0.8 The [facility] Comment on above: Performed By: #### T SH, LIPID, CMP #### [facility] [address] [place] [address] Dr. Oscar Paulino Monocytes/100 WBC (Bld) 6.7 % Normal 1.7-12.0 The [facility] Comment on above: Performed By: #### T SH, LIPID, CMP #### [facility] [address] [place] [address] Dr. Oscar Paulino NEUT # 1.1 103/ul Critically low 1.4-6.5 The [facility] Comment on above: Performed By: #### T SH, LIPID, CMP #### [facility] [address] [place] [address] Dr. Oscar Paulino Neutrophils/100 WBC (Bld) 45.3 % Normal 43.0-75.0 The [facility] Comment on above: Performed By: #### T SH, LIPID, CMP #### [facility] [address] [place] [address] Dr. Oscar Paulino Platelet mean volume (Bld) [Entitic vol] 8.4 fL Critically low 9.5-13.5 [facility] Comment on above: Performed By: #### T SH, LIPID, CMP #### [facility] [address] [place] [address] Dr. Oscar Paulino PLT 164 103/ul Normal 150-450 [facility] Comment on above: Performed By: #### T SH, LIPID, CMP #### [facility] [address] [place] [address] Dr. Oscar Paulino RBC 3.25 106/ul Critically low 4.70-6.10 [facility] Comment on above: Performed By: #### T SH, LIPID, CMP #### [facility] [address] [place] [address] Dr. Oscar Paulino WBC 2.5 103/ul Critically low 4.0-11.0 [facility] Comment on above: Performed By: #### T MANJIT, LIPID, CMP #### [facility] [address] [place] [address] Dr. Oscar Paulino PROF CHEM 8 (BAS METB)on Anion gap [Moles/Vol] 9.9 mmol/L Normal [facility] Comment on above: Performed By: #### B MP #### [facility] [address] [place] [address] Dr. Oscar Paulino Calcium [Mass/Vol] 9.4 mg/dL Normal 8.5-10.1 The [facility] Comment on above: Performed By: #### B MP #### [facility] [address] [place] [address] Dr. Oscar Paulino Chloride [Moles/Vol] 105 mmol/L Normal 98-107 [facility] Comment on above: Performed By: #### B MP #### [facility] [address] [place] [address] Dr. Oscar Paulino CO2 [Moles/Vol] 27.3 mmol/L Normal 21.0-32.0 [facility] Comment on above: Performed By: #### B MP #### [facility] [address] [address] [address] Oscar Paulino Creatinine [Mass/Vol] 1.05 mg/dL Normal 0.70-1.30 [facility] Comment on above: Performed By: #### B MP #### [facility] [address] [address] [address] Oscar Paulino EGFR-AF JORDANIAN >60 Normal >=60 [facility] Comment on above: Performed By: #### B MP #### [facility] [address] [address] [address] Oscar Paulino EGFR-NON AF JORDANIAN >60 Normal >=60 [facility] Comment on above: Performed By: #### B MP #### [facility] [address] [place] [address] Dr. Oscar Paulino Glucose [Mass/Vol] 105 mg/dL Normal 74-106 [facility] Comment on above: Performed By: #### B MP #### [facility] [address] [place] [address] Dr. Oscar Paulino Potassium [Moles/Vol] 4.2 mmol/L Normal 3.5-5.1 [facility] Comment on above: Performed By: #### B MP #### [facility] [address] [place] [address] Dr. Oscar Paulino Sodium [Moles/Vol] 138 mmol/L Normal 136-145 The [facility] Comment on above: Performed By: #### B MP #### [facility] [address] [place] [address] Dr. Oscar Paulino Urea nitrogen [Mass/Vol] 15.0 mg/dL Normal 7.0-18.0 The [facility] Comment on above: Performed By: #### B MP #### [facility] [address] [address] [address] Oscar Paulino Urea nitrogen/Creatinine [Mass ratio] 14.3 mg/mg Normal [facility] Comment on above: Performed By: #### B MP #### [facility] [address] [address] [address] Oscar Paulino PROTIMEon 06-28-2022 INR Coag (PPP) [Relative time] 1.03 {INR} Normal [facility] Comment on above: Performed By: #### T SH, LIPID, CMP #### [facility] [address] [place] [address] Dr. Oscar Paulino INR GUIDELINES SEE BELOW Normal [facility] Comment on above: Result Comment: ELYSIA RED INR: 2.0 - 3.0 CONDITIONS NOT LISTED BELOW 2.5 - 3.5 FOR PROSTHETIC HEART VALVE REPLACEMENT 2.5 - 3.5 RECURRENT THROMBOSIS Performed By: #### T SH, LIPID, CMP #### [facility] [address] [place] [address] Dr. Oscar Paulino PT Coag (PPP) [Time] 11.1 s Normal 9.0-11.6 [facility] Comment on above: Performed By: #### T SH, LIPID, CMP #### [facility] [address] [place] [address] Dr. Oscar Paulino PTTon 06-28-2022 aPTT Coag (Bld) [Time] 26.2 s Normal 22.3-36.2 [facility] Comment on above: Performed By: #### T SH, LIPID, CMP #### [facility] [address] [place] [address] Dr. Oscar Paulino Tobacco Screening.on 022 Adult depression screening assessment Yes [facility] [employer] 250 DO Work Phone: Adult depression screening assessment No [facility] [employer] 250 DO Work Phone: Fall risk assessment a) No falls within the last year [facility] [employer] 250 DO Work Phone: Tobacco use status CP b) No [facility]-[employer] Medicalu jaun 250 DO Work Phone: Tobacco Screening. 1-Several days [facility] [employer] 250 DO Work Phone: Tobacco Screening. 0-Not at all [facility]Sand[employer] jaun 250 DO Work Phone: Tobacco Screening. 2-More than half the days [facility] [employer]un 250 DO Work Phone: Tobacco Screening. Somewhat Difficult [facility] Heart-Priy[employer]au jaun 250 DO Work Phone: CT STROKE [...] by: EBONI PETE Date: 2022-04-08 00:27 Normal [facility] CARDIAC STRESS/REST INJE CTIONon 10-03-2021 [facility] CARDIAC STRESS/REST INJECTION Patient Name: NEIL WILCOX STUDY: MYOCARDIAL PERFUSION STRESS TEST WITH LEXISCAN Performing facility: [facility], [address], [address], [place] [address] [facility] Provider: Loulou Arreguin RN, REGULATORY MANAGER PCP: Dr. Paul Cooney Supervising provider: Erick Wise DO, [facility] INDICATION: HTN Fatigue HISTORY: Gender: M; Age: 75 y/o ; Height: 0 cm; Weight: 0 kg. High Cholesterol; HTN; Fatigue; TIA Vertigo Denies smoking. COMPARISON: No comparison. ACCESSION NUMBER(S): [id number]; [id number]; [id number] ORDERING CLINICIAN: LOULOU ARREGUIN TECHNIQUE: ONE DAY [...] comparison. Electronically signed by: MATTI MIDDLETON MD [facility] Falls Risk Screeningon 08-31 Fall risk assessment a) No falls within the last year [facility]Sand[employer] jaun 250 DO Work Phone: Tobacco use status [facility] b) No [facility] Heart-Nhung zamorano 250 DO Work Phone: Tobacco Screening.on 021 Fall risk assessment a) No falls within the last year [facility] Jody zamorano 250 DO Work Phone: Tobacco use status [facility] b) No [facility] HeartLula zamorano 250 DO Work Phone: BASIC METABOLIC PANELon 03-24 Calcium [Mass/Vol] 8.9 mg/dL Normal 8.5-10.4 [facility] Comment on above: Result Comment: RESU LT CHECKED Anion gap [Moles/Vol] 9 mmol/L Normal 0-19 [facility] Chloride [Moles/Vol] 104 mmol/L Normal 97-107 [facility] CO2 [Moles/Vol] 24 mmol/L Normal 24-31 [facility] Creatinine [Mass/Vol] 0.9 mg/dL Normal 0.4-1.6 [facility] ESTIMATED GFR 88 mL/min/1.73 m2 Normal [facility] Comment on above: Result Comment: GFR ml/min/1.73m2 Stage ----- 90 1 60-89 2 30-59 3 15-29 4 <15 5 For -Americans, multiply EGFR result by 1.210 Calculation not validated for patients under 18 years of age. Performed at [facility] [address] [facility] [address] Glucose [Mass/Vol] 134 mg/dL High 65-99 [facility] Potassium [Moles/Vol] 3.9 mmol/L Normal 3.4-5.1 [facility] Sodium [Moles/Vol] 137 mmol/L Normal 133-145 [facility] Urea nitrogen [Mass/Vol] 13 mg/dL Normal 8-25 [facility] Urea nitrogen/Creatinine [Mass ratio] 14.4 mg/mg Normal 8-21 [facility] CBC with Diffon 04-06-2021 AB IMMATURE NEUT 0.00 K/UL Normal 0.0-0.1 [facility] ABS BASO 0.00 K/UL Normal 0.00-0.22 [facility] ABS EOS 0.02 K/UL Normal 0-0.45 [facility] ABS NEUTROPHILS 3.73 K/UL Normal 1.8-7.7 [facility] ABS.NEUT.CALCULATED 3.73 K/UL Normal [facility] Comment on above: Result Comment: Perf ormed at [facility] [address] [facility] [address] Basophils/100 WBC (Bld) 0.00 % Normal 0-1 [facility] DIFF TYPE AUTO DIFF Normal [facility] Eosinophils/100 WBC (Bld) 0.40 % Normal 0-3 [facility] Erythrocyte distribution width (RBC) [Ratio] 11.6 % Low 11.7-15.0 [facility] Hematocrit (Bld) [Volume fraction] 29.6 % Low 41-50 [facility] Hemoglobin (Bld) [Mass/Vol] 10.0 g/dL Low 13.5-16.5 [facility] Lymphocytes (Bld) [#/Vol] 0.97 10*3/uL Low 1.2-3.2 [facility] Lymphocytes/100 WBC (Bld) 19.10 % Low 20-40 [facility] MCH (RBC) [Entitic mass] 35.5 pg High 26-34 [facility] MCHC 33.8 % Normal 31-37 [facility] MCV (RBC) [Entitic vol] 105.0 fL High 80-100 [facility] MEAN PLT VOL 8.4 CU Normal 7.0-12.6 [facility] Monocytes (Bld) [#/Vol] 0.35 10*3/uL Normal 0-0.8 [facility] Monocytes/100 WBC (Bld) 6.90 % Normal 0-8 [facility] Neutrophils/100 WBC (Bld) 0.00 % Normal 0.0-1.0 [facility] Neutrophils/100 WBC (Bld) 73.60 % High 50-70 [facility] Platelets (Bld) [#/Vol] 115 10*3/uL Low 150-450 [facility] RBC (Bld) [#/Vol] 2.82 10*6/uL Low 4.5-5.5 [facility] RDW-SD 44.8 FL Normal 37.0-54.0 [facility] WBC (Bld) [#/Vol] 5.1 10*3/uL Normal 4.5-11.0 [facility] PROTHROMBIN TIMEon INR Coag (PPP) [Relative time] 1.0 {INR} Normal 0.86-1.16 [facility] Comment on above: Result Comment: INR Theraputic Range: 2.0-3.5 Performed at [address] [address] PT Coag (PPP) [Time] 11.3 s Normal 9.3-12.7 [facility] ANTICOAGULANT INFORMATION NOT REPO RTED TO LABORATORY Normal [facility] PTTon 04-06-2021 aPTT Coag (Bld) [Time] 21.9 s Low 22.0-32.5 [facility] Comment on above: Result Comment: Perf ormed at [address] [address] CBC with Diffon 04-01-2021 AB IMMATURE NEUT 0.00 K/UL Normal 0.0-0.1 [facility] ABS BASO 0.02 K/UL Normal 0.00-0.22 [facility] ABS EOS 0.19 K/UL Normal 0-0.45 [facility] ABS NEUTROPHILS 1.56 K/UL Low 1.8-7.7 [facility] ABS.NEUT.CALCULATED 1.56 K/UL Normal [facility] Comment on above: Result Comment: Perf ormed at [address] [address] Basophils/100 WBC (Bld) 0.60 % Normal 0-1 [facility] DIFF TYPE AUTO DIFF Normal [facility] Eosinophils/100 WBC (Bld) 5.30 % High 0-3 [facility] Erythrocyte distribution width (RBC) [Ratio] 11.6 % Low 11.7-15.0 [facility] Hematocrit (Bld) [Volume fraction] 40.9 % Low 41-50 [facility] Hemoglobin (Bld) [Mass/Vol] 13.4 g/dL Low 13.5-16.5 [facility] Lymphocytes (Bld) [#/Vol] 1.44 10*3/uL Normal 1.2-3.2 [facility] Lymphocytes/100 WBC (Bld) 40.30 % High 20-40 [facility] MCH (RBC) [Entitic mass] 35.2 pg High 26-34 [facility] MCHC 32.8 % Normal 31-37 [facility] MCV (RBC) [Entitic vol] 107.3 fL High 80-100 [facility] MEAN PLT VOL 8.5 CU Normal 7.0-12.6 [facility] Monocytes (Bld) [#/Vol] 0.36 10*3/uL Normal 0-0.8 [facility] Monocytes/100 WBC (Bld) 10.10 % High 0-8 [facility] Neutrophils/100 WBC (Bld) 0.00 % Normal 0.0-1.0 [facility] Neutrophils/100 WBC (Bld) 43.70 % Low 50-70 [facility] Platelets (Bld) [#/Vol] 149 10*3/uL Low 150-450 [facility] RBC (Bld) [#/Vol] 3.81 10*6/uL Low 4.5-5.5 [facility] RDW-SD 46.3 FL Normal 37.0-54.0 [facility] WBC (Bld) [#/Vol] 3.6 10*3/uL Low 4.5-11.0 [facility] COMPREHENSIVE METABOLIC PANE Melvin 04-01-2021 Albumin [Mass/Vol] 4.1 g/dL Normal 3.5-5.0 [facility] Albumin/Globulin [Mass ratio] 1.2 {ratio} Low 1.5-3.0 [facility] ALP [Catalytic activity/Vol] 77 U/L Normal 35-125 [facility] ALT [Catalytic activity/Vol] 16 U/L Normal 5-40 [facility] Anion gap [Moles/Vol] 10 mmol/L Normal 0-19 [facility] AST [Catalytic activity/Vol] 18 U/L Normal 5-40 [facility] Bilirubin [Mass/Vol] 0.3 mg/dL Normal 0.1-1.2 [facility] Calcium [Mass/Vol] 10.0 mg/dL Normal 8.5-10.4 [facility] Chloride [Moles/Vol] 104 mmol/L Normal 97-107 [facility] CO2 [Moles/Vol] 27 mmol/L Normal 24-31 [facility] Creatinine [Mass/Vol] 0.9 mg/dL Normal 0.4-1.6 [facility] ESTIMATED GFR 88 mL/min/1.73 m2 Normal [facility] Comment on above: Result Comment: GFR ml/min/1.73m2 Stage ----- 90 1 60-89 2 30-59 3 15-29 4 <15 5 For -Americans, multiply EGFR result by 1.210 Calculation not validated for patients under 18 years of age. Performed at [place] [id number] Globulin (S) [Mass/Vol] 3.3 g/dL Normal 1.9-3.7 [facility] Glucose [Mass/Vol] 95 mg/dL Normal 65-99 [facility] Potassium [Moles/Vol] 4.3 mmol/L Normal 3.4-5.1 [facility] Protein [Mass/Vol] 7.4 g/dL Normal 5.9-7.9 [facility] Sodium [Moles/Vol] 141 mmol/L Normal 133-145 [facility] Urea nitrogen [Mass/Vol] 16 mg/dL Normal 8-25 [facility] Urea nitrogen/Creatinine [Mass ratio] 17.8 mg/mg Normal 8-21 [facility] SARS-CoV-2,INFLUENZA A/B NUC LEIC ACID TESTon 04-01-2021 EUA DISCLAIMER Normal [facility] Comment on above: Result Comment: [...] is terminated or revoked sooner. Performed at [address] [address] FLU A by PCR Negative Normal [facility] FLU B by PCR Negative Normal [facility] SARS-CoV-2 (COVID-19) RNA KEIKO+probe Ql (Unsp spec) Negative Normal NEG [facility] TYPE AND SCREENon 04-01-2021 TYPE AND SCREEN BLOOD COMPONENT TYPE - RED CELL GROUP Performed at [place] [id number] UNITS ORDERED - 0 Performed at [place] [address] SPECIMEN EXPIRATION - 04/08/2021 Performed at [address] [address] ABO/RH(D) - A POSITIVE Performed at [address] [address] ANTIBODY SCREEN - NEGATIVE Performed at [address] [address] ARM BAND NUMBER - [id number] Performed at [address] [address] SURGERY DATE - [id number] Performed at [address] [address] TEST ORDERED - TYPE AND SCREEN Performed at [place] [id number] PT TRANSFUSION HISTORY - BLOOD BANK RECORD SEARCH COMPLETED NO PREVIOUS RECORD NO PREVIOUS TRANSFUSIONS IN LIFETIME Performed at [address] [address] Normal [facility] Comment on above: Performed By: #### [facility] #### [facility] [address] [address] UA-REFLEX TO CULTUREon 04-01 RBC NONE SEEN Normal 0-3 [facility] Urinalysis dipstick W Reflex Microscopic panel (U) MANUAL MICROSCOPIC URINES Normal [facility] WBC NONE SEEN Normal 0-3 [facility] OTHER Normal [facility] Comment on above: Result Comment: MUCO US Performed at [place] [address] Bacteria identified Cx Nom (U) CULTURE NOT INDICATED Normal [facility] Comment on above: Result Comment: CULT URE NOT INDICATED Performed at [place] [id number] BILI Negative Normal NEG [facility] Clarity (U) CLEAR Normal [facility] Color (U) YELLOW Normal [facility] GLUC Negative Normal NEG [facility] Hemoglobin Ql (U) Negative Normal NEG [facility] KET Negative Normal NEG [facility] LEUK Negative Normal NEG [facility] NIT Negative Normal NEG [facility] pH (U) 6.5 [pH] Normal 4.6-8.0 [facility] PROT TRACE Abnormal NEG [facility] SP GRAV,URINE 1.025 Normal 1.005-1.03 0 [facility] URO 0.2 MG/DL Normal 0-1.0 [facility] Basophils Auto (Bld) [#/Vol] on 02-07-2021 Basophils (Bld) [#/Vol] 0.0 10*3/uL 0.0-0.2 [facility] Basophils/100 WBC Auto (Bld) on 02-07-2021 Basophils/100 WBC (Bld) 0.2 % [facility] Blood hemoglobin measurement (mass/volume)on 02-07-2021 Hemoglobin (Bld) [Mass/Vol] 12.8 g/dL 13.0-17.0 [facility] Blood leukocytes automated c ount (number/volume)on 02-07-2021 WBC (Bld) [#/Vol] 3.5 10*3/uL 4.5-11.0 [facility] Body fluid albumin measureme nt (mass/volume)on 02-07-2021 Albumin (Body fld) [Mass/Vol] 3.7 g/dL 3.2-5.5 [facility] Cholesterol [Mass/volume] in Serum or Plasmaon 02-07-2021 Cholesterol [Mass/Vol] 127 mg/dL 140-200 Fi relands [facility] Comment on above: Chol less than 200 m g/dl low riskChol 201-239 mg/dl borderline riskChol 240 mg/dl and greater high risk Cholesterol in LDL Calc [Mas s/Vol]on 02-07-2021 Cholesterol in LDL [Mass/Vol] 66 mg/dL 0-100 [facility] Comment on above: LDL ATP III CLASSIFI CATIONLDL less than 100 mg/dL OptimalLDL 100-129 mg/dL Near or above optimalLDL 130-159 mg/dL Borderline highLDL 160-189 mg/dL HighLDL greater than 189 mg/dL Very high Cholesterol in VLDL Calc [Ma ss/Vol]on 02-07-2021 Cholesterol in VLDL [Mass/Vol] 10 mg/dL [facility] Creatinine and Glomerular fi ltration rate.predicted panel (S/P/Bld)on 02-07-2021 Creatinine [Mass/Vol] 0.95 mg/dL 0.64-1.27 [facility] Eosinophils Auto (Bld) [#/Vo l]on 02-07-2021 Eosinophils (Bld) [#/Vol] 0.2 10*3/uL 0.0-0.45 [facility] Eosinophils/100 WBC Auto (Bl d)on 02-07-2021 Eosinophils/100 WBC (Bld) 5.2 % [facility] Erythrocyte distribution wid th Auto (RBC) [Ratio]on 02-07-2021 Erythrocyte distribution width (RBC) [Ratio] 13.0 % 12.0-14.8 [facility] Estimated glomerular filtrat ion rate (GFR) non- Americanon 02-07-2021 GFR/1.73 sq M.predicted among non-blacks MDRD (S/P/Bld) [Vol rate/Area] > 60 mL/Min [facility] Globulin Calc (S) [Mass/Vol] on 02-07-2021 Globulin (S) [Mass/Vol] 3.6 g/dL [facility] Hematocrit Auto (Bld) [Volum e fraction]on 02-07-2021 Hematocrit (Bld) [Volume fraction] 38.4 % 38.8-50.0 [facility] Laboratory - Hematology and Cell countson 02-07-2021 Nucleated RBC/100 WBC (Bld) [Ratio] 0.1 % 0-0.5 [facility] Lymphocytes Auto (Bld) [#/Vo l]on 02-07-2021 Lymphocytes (Bld) [#/Vol] 1.2 10*3/uL 1.00-4.8 [facility] Lymphocytes/100 WBC Auto (Bl d)on 02-07-2021 Lymphocytes/100 WBC (Bld) 33.5 % [facility] MCH Auto (RBC) [Entitic mass ]on 02-07-2021 MCH (RBC) [Entitic mass] 35.8 pg 27.5-35.2 [facility] MCHC Auto (RBC) [Mass/Vol]on 02-07-2021 MCHC (RBC) [Mass/Vol] 33.4 g/dL 32.5-35.6 [facility] MCV Auto (RBC) [Entitic vol] on 02-07-2021 MCV (RBC) [Entitic vol] 107.1 fL 83.5-101 [facility] Monocytes Auto (Bld) [#/Vol] on 02-07-2021 Monocytes (Bld) [#/Vol] 0.4 10*3/uL 0.0-0.8 [facility] Monocytes/100 WBC Auto (Bld) on 02-07-2021 Monocytes/100 WBC (Bld) 10.3 % [facility] Neutrophils Auto (Bld) [#/Vo l]on 02-07-2021 Neutrophils (Bld) [#/Vol] 1.8 10*3/uL 1.8-7.7 [facility] Neutrophils/100 WBC Auto (Bl d)on 02-07-2021 Neutrophils/100 WBC (Bld) 50.8 % [facility] No Panel Informationon 02-07 Estimated GFR () > 60 mL/Min [facility] Comment on above: GFR estimated refere nce range: According to KDOQI guidelines, <60 ml/min/1.73m2 is sufficient to diagnose a patient with chronic kidney disease. Pharmacy Creatinine Clearance (Chem N/A [facility] Platelet mean volume Auto (B ld) [Entitic vol]on 02-07-2021 Platelet mean volume (Bld) [Entitic vol] 6.7 fL 6.6-10.1 [facility] Platelets Auto (Bld) [#/Vol] on 02-07-2021 Platelets (Bld) [#/Vol] 220 10*3/uL 150-450 [facility] Protein [Mass/volume] in Ser um or Plasmaon 02-07-2021 Protein [Mass/Vol] 7.3 g/dL 6.1-7.9 [facility] RBC Auto (Bld) [#/Vol]on RBC (Bld) [#/Vol] 3.59 10*6/uL 3.90-5.60 [facility] Serum or plasma alanine huntley otransferase measurement without P-5'-P (enzymatic activion 02-07-2021 ALT No additional P-5'-P [Catalytic activity/Vol] 13 U/L 10-60 [facility] Serum or plasma albumin/glob ulin mass ratioon 02-07-2021 Albumin/Globulin [Mass ratio] 1.0 {ratio} [facility] Serum or plasma alkaline latoya sphatase measurement (enzymatic activity/volume)on 02-07-2021 ALP [Catalytic activity/Vol] 71 U/L 32-92 [facility] Serum or plasma aspartate am inotransferase measurement (enzymatic activity/volume)on 02-07-2021 AST [Catalytic activity/Vol] 13 U/L 10-42 [facility] Serum or plasma calcium ilana urement (mass/volume)on 02-07-2021 Calcium [Mass/Vol] 9.7 mg/dL 8.2-10.2 [facility] Serum or plasma chloride rishabh surement (moles/volume)on 02-07-2021 Chloride [Moles/Vol] 102 mmol/L 95-114 [facility] Serum or plasma glucose ilana urement (mass/volume)on 02-07-2021 Glucose [Mass/Vol] 95 mg/dL 70-100 [facility] Comment on above: ADA recommended refe rence rangeRandom Glucose Reference Range is dependent on time and content of last meal. Glucose of more than 200 mg/dL in a nonstressed, ambulatory subject supports the diagnosis of Diabetes Mellitus. Serum or plasma high density lipoprotein (HDL) cholesterol measurementon 02-07-2021 Cholesterol in HDL [Mass/Vol] 51 mg/dL 29-71 [facility] Comment on above: HDL CHOL ATP-III CLA SSIFICATION Cardiovascular RiskHDL > or equal to 60 mg/dL LOWHDL < 40 mg/dL HIGH Serum or plasma potassium me asurement (moles/volume)on 02-07-2021 Potassium [Moles/Vol] 4.5 mmol/L 3.5-5.1 [facility] Serum or plasma sodium measu rement (moles/volume)on 02-07-2021 Sodium [Moles/Vol] 137 mmol/L 136-146 [facility] Serum or plasma total biliru bin measurement (mass/volume)on 02-07-2021 Bilirubin [Mass/Vol] 0.6 mg/dL 0.3-1.2 [facility] Serum or plasma total carbon dioxide measurement (moles/volume)on 02-07-2021 CO2 [Moles/Vol] 24.7 mmol/L 22.0-30.0 [facility] Serum or plasma total choles terol/high density lipoprotein (HDL) cholesterol mass noni 02-07-2021 Cholesterol.total/Chol esterol in HDL [Mass ratio] 2.5 {ratio} [facility] Serum or plasma urea nitroge n measurement (mass/volume)on 02-07-2021 Urea nitrogen [Mass/Vol] 19 mg/dL 9-23 [facility] TSH DL <= 0.005 mIU/L Qnon 0 02-07-2021 TSH Qn 1.17 m[IU]/L 0.45-5.33 [facility] Thyroxine (T4) free [Mass/vo lume] in Serum or Plasmaon 02-07-2021 Free T4 [Mass/Vol] 0.88 ng/dL 0.61-1.12 [facility] Triglyceride [Mass/volume] i n Serum or Plasmaon 02-07-2021 Triglyceride [Mass/Vol] 52 mg/dL 35-149 [facility] Comment on above: TRIG ATP III CLASSIF ICATIONTRIG less than 150 mg/dL NormalTRIG 150-199 mg/dL Borderline highTRIG 200-500 mg/dL High TRIG greater than 500 mg/dL Very highStandard traceable to the Center for Disease Conrtrol and Prevention (CDC) test method. WOUND CULTURE-TISSUEon 12-22 WOUND CULTURE-TISSUE Specimen source XXX : SHOULDER RIGHT Performed at [facility] [address] [place] [id number] Service Cmnt XXX-Imp: HOLD FOR 2 WEEKS Microscopic observation: NO ORGANISMS SEEN 1+ WBC Bacteria identified: ANAEROBIC GRAM POSITIVE BACILLI ONE COLONY MOST CLOSELY RESEMBLING CUTIBACTERIUM (PROPIONIBACTERIUM) ACNES Performed at [facility],[address] [place] [id number] : FINAL 12/22/2020 [facility] Comment on above: Performed By: #### [facility] #### Main Laboratory [address] [address] CBC with Diffon 12-17-2020 AB IMMATURE NEUT 0.00 K/UL Normal 0.0-0.1 [facility] ABS BASO 0.00 K/UL Normal 0.00-0.22 [facility] ABS EOS 0.00 K/UL Normal 0-0.45 [facility] ABS NEUTROPHILS 2.47 K/UL Normal 1.8-7.7 [facility] ABS.NEUT.CALCULATED 2.47 K/UL Normal [facility] Comment on above: Result Comment: Perf ormed at [facility] [address] [facility] [address] Basophils/100 WBC (Bld) 0.00 % Normal 0-1 [facility] DIFF TYPE AUTO DIFF Normal [facility] Eosinophils/100 WBC (Bld) 0.00 % Normal 0-3 [facility] Erythrocyte distribution width (RBC) [Ratio] 12.1 % Normal 11.7-15.0 [facility] Hematocrit (Bld) [Volume fraction] 30.6 % Low 41-50 [facility] Hemoglobin (Bld) [Mass/Vol] 10.4 g/dL Low 13.5-16.5 [facility] Lymphocytes (Bld) [#/Vol] 0.75 10*3/uL Low 1.2-3.2 [facility] Lymphocytes/100 WBC (Bld) 20.90 % Normal 20-40 [facility] MCH (RBC) [Entitic mass] 36.2 pg High 26-34 [facility] MCHC 34.0 % Normal 31-37 [facility] MCV (RBC) [Entitic vol] 106.6 fL High 80-100 [facility] MEAN PLT VOL 8.4 CU Normal 7.0-12.6 [facility] Monocytes (Bld) [#/Vol] 0.37 10*3/uL Normal 0-0.8 [facility] Monocytes/100 WBC (Bld) 10.30 % High 0-8 [facility] Neutrophils/100 WBC (Bld) 0.00 % Normal 0.0-1.0 [facility] Neutrophils/100 WBC (Bld) 68.80 % Normal 50-70 [facility] Platelets (Bld) [#/Vol] 122 10*3/uL Low 150-450 [facility] RBC (Bld) [#/Vol] 2.87 10*6/uL Low 4.5-5.5 [facility] RDW-SD 47.8 FL Normal 37.0-54.0 [facility] WBC (Bld) [#/Vol] 3.6 10*3/uL Low 4.5-11.0 [facility] COMPREHENSIVE METABOLIC PANE Melvin 12-17-2020 Albumin [Mass/Vol] 3.5 g/dL Normal 3.5-5.0 [facility] Albumin/Globulin [Mass ratio] 1.3 {ratio} Low 1.5-3.0 [facility] ALP [Catalytic activity/Vol] 63 U/L Normal 35-125 [facility] ALT [Catalytic activity/Vol] 10 U/L Normal 5-40 [facility] Comment on above: Result Comment: Perf ormed at [facility] [address] [facility] [address] Anion gap [Moles/Vol] 11 mmol/L Normal 0-19 [facility] AST [Catalytic activity/Vol] 15 U/L Normal 5-40 [facility] Bilirubin [Mass/Vol] 0.7 mg/dL Normal 0.1-1.2 [facility] Calcium [Mass/Vol] 9.0 mg/dL Normal 8.5-10.4 [facility] Chloride [Moles/Vol] 99 mmol/L Normal 97-107 [facility] CO2 [Moles/Vol] 26 mmol/L Normal 24-31 [facility] Creatinine [Mass/Vol] 0.9 mg/dL Normal 0.4-1.6 [facility] Globulin (S) [Mass/Vol] 2.7 g/dL Normal 1.9-3.7 [facility] Glucose [Mass/Vol] 129 mg/dL High 65-99 [facility] Potassium [Moles/Vol] 3.8 mmol/L Normal 3.4-5.1 [facility] Protein [Mass/Vol] 6.2 g/dL Normal 5.9-7.9 [facility] Sodium [Moles/Vol] 136 mmol/L Normal 133-145 [facility] Urea nitrogen [Mass/Vol] 13 mg/dL Normal 8-25 [facility] Urea nitrogen/Creatinine [Mass ratio] 14.4 mg/mg Normal 8-21 [facility] FREE T4on 12-09-2020 Free T4 [Mass/Vol] 1.2 ng/dL Normal 0.9-1.7 [facility] Comment on above: Result Comment: Perf ormed at [address] [address] Performed By: #### [facility] #### Main Laboratory [facility] [address] [place] [address] CBC with Diffon 12-08-2020 ABS NEUTROPHILS 1.38 K/UL Low 1.8-7.7 [facility] Comment on above: Result Comment: DARELL ECTED ON 12/08 AT 1254: PREVIOUSLY REPORTED 1.39 PLATELET ESTIMATE ADEQUATE Normal [facility] RBC morphology finding Nom (Bld) CONSISTENT WITH PERIPHERAL SMEAR Normal [facility] WBC MORPHOLOGY SMEAR REVIEWED AND F OUND CONSISTENT WITH AUTOMATED DIFFERENTIAL Normal [facility] AB IMMATURE NEUT 0.00 K/UL Normal 0.0-0.1 [facility] ABS BASO 0.01 K/UL Normal 0.00-0.22 [facility] ABS EOS 0.20 K/UL Normal 0-0.45 [facility] ABS.NEUT.CALCULATED 1.39 K/UL Normal [facility] Comment on above: Result Comment: Perf ormed at [facility] [address] [facility] [address] Basophils/100 WBC (Bld) 0.30 % Normal 0-1 [facility] DIFF TYPE AUTO DIFF Normal [facility] Eosinophils/100 WBC (Bld) 6.40 % High 0-3 [facility] Erythrocyte distribution width (RBC) [Ratio] 11.9 % Normal 11.7-15.0 [facility] Hematocrit (Bld) [Volume fraction] 40.0 % Low 41-50 [facility] Hemoglobin (Bld) [Mass/Vol] 13.5 g/dL Normal 13.5-16.5 [facility] Lymphocytes (Bld) [#/Vol] 1.20 10*3/uL Normal 1.2-3.2 [facility] Lymphocytes/100 WBC (Bld) 38.60 % Normal 20-40 [facility] MCH (RBC) [Entitic mass] 36.0 pg High 26-34 [facility] MCHC 33.8 % Normal 31-37 [facility] MCV (RBC) [Entitic vol] 106.7 fL High 80-100 [facility] MEAN PLT VOL 8.5 CU Normal 7.0-12.6 [facility] Monocytes (Bld) [#/Vol] 0.31 10*3/uL Normal 0-0.8 [facility] Monocytes/100 WBC (Bld) 10.00 % High 0-8 [facility] Neutrophils/100 WBC (Bld) 0.00 % Normal 0.0-1.0 [facility] Neutrophils/100 WBC (Bld) 44.70 % Low 50-70 [facility] Platelets (Bld) [#/Vol] 168 10*3/uL Normal 150-450 [facility] RBC (Bld) [#/Vol] 3.75 10*6/uL Low 4.5-5.5 [facility] RDW-SD 46.6 FL Normal 37.0-54.0 [facility] WBC (Bld) [#/Vol] 3.1 10*3/uL Low 4.5-11.0 [facility] COMPREHENSIVE METABOLIC PANE Melvin 12-08-2020 Albumin [Mass/Vol] 4.2 g/dL Normal 3.5-5.0 [facility] Albumin/Globulin [Mass ratio] 1.3 {ratio} Low 1.5-3.0 [facility] ALP [Catalytic activity/Vol] 77 U/L Normal 35-125 [facility] ALT [Catalytic activity/Vol] 10 U/L Normal 5-40 [facility] Anion gap [Moles/Vol] 10 mmol/L Normal 0-19 [facility] AST [Catalytic activity/Vol] 16 U/L Normal 5-40 [facility] Bilirubin [Mass/Vol] 0.7 mg/dL Normal 0.1-1.2 [facility] Calcium [Mass/Vol] 9.6 mg/dL Normal 8.5-10.4 [facility] Chloride [Moles/Vol] 102 mmol/L Normal 97-107 [facility] CO2 [Moles/Vol] 28 mmol/L Normal 24-31 [facility] Creatinine [Mass/Vol] 1.1 mg/dL Normal 0.4-1.6 [facility] ESTIMATED GFR 70 mL/min/1.73 m2 Normal [facility] Comment on above: Result Comment: GFR ml/min/1.73m2 Stage ----- 90 1 60-89 2 30-59 3 15-29 4 <15 5 For -Americans, multiply EGFR result by 1.210 Calculation not validated for patients under 18 years of age. Performed at [facility] [address] [facility] [address] Globulin (S) [Mass/Vol] 3.2 g/dL Normal 1.9-3.7 [facility] Glucose [Mass/Vol] 94 mg/dL Normal 65-99 [facility] Potassium [Moles/Vol] 4.1 mmol/L Normal 3.4-5.1 [facility] Protein [Mass/Vol] 7.4 g/dL Normal 5.9-7.9 [facility] Sodium [Moles/Vol] 140 mmol/L Normal 133-145 [facility] Urea nitrogen [Mass/Vol] 15 mg/dL Normal 8-25 [facility] [place] U[place] nitrogen/Creatinine [Mass ratio] 13.6 mg/mg Normal 8-21 [facility] EKGon 12-08-2020 Electrocardiogram EKG Ventricular Rate : 57 BPM Atrial Rate : 57 BPM P-R Interval : 174 ms QRS Duration : 102 ms Q-T Interval : 430 ms QTC Calculation(Bazett) : 418 ms Calculated P [place] : 74 degrees Calculated R [place] : 56 degrees Calculated T [place] : 69 degrees Diagnosis:Sinus bradycardia with Premature atrial complexes and Premature ventricular complexes or Fusion complexes Otherwise normal ECG When compared with ECG of 08-DEC-2020 11:04, Premature atrial complexes are now Present Confirmed by XIN TONG DO ([id number]) on 12/10/2020 9:36:45 AM [facility] Electrocardiogram EKG Ventricular Rate : 51 BPM Atrial Rate : 51 BPM P-R Interval : 186 ms QRS Duration : 102 ms Q-T Interval : 432 ms QTC Calculation(Bazett) : 398 ms Calculated P [place] : 70 degrees Calculated R [place] : 44 degrees Calculated T [place] : 63 degrees Diagnosis:Sinus bradycardia with occasional Premature ventricular complexes Otherwise normal ECG No previous ECGs available Confirmed by XIN TONG DO ([id number]) on 12/10/2020 9:37:02 AM [facility] SARS-CoV-2,INFLUENZA A/B NUC LEIC ACID TESTon 12-08-2020 EUA DISCLAIMER Normal [facility] Comment on above: Result Comment: [...] is terminated or revoked sooner. Performed at [place] [address] FLU A by PCR Negative [facility] FLU B by PCR Negative [facility] SARS-CoV-2 (COVID-19) RNA KEIKO+probe Ql (Unsp spec) Negative Normal NEG [facility] TSHon 12-08-2020 TSH 0.24 MIU/L Low 0.27-4.20 [facility] Comment on above: Result Comment: Perf ormed at [address] [address] Performed By: #### T [facility] ####[facility] [address] [address] UA-REFLEX TO CULTUREon 12-08 RBC OCC Normal 0-3 [facility] Urinalysis dipstick W Reflex Microscopic panel (U) MANUAL MICROSCOPIC URINES Normal [facility] WBC OCC Normal 0-3 [facility] OTHER Normal [facility] Comment on above: Result Comment: PRES ENT MUCOUS Performed at [place] [address] Bacteria identified Cx Nom (U) CULTURE NOT INDICATED Normal [facility] Comment on above: Result Comment: CULT URE NOT INDICATED Performed at [place] [address] BILI Negative Normal [facility] Clarity (U) CLEAR Normal [facility] Color (U) YELLOW Normal [facility] GLUC Negative Normal NEG [facility] Hemoglobin Ql (U) Negative Normal NEG [facility] KET Negative Normal NEG [facility] LEUK Negative Normal NEG [facility] NIT Negative Normal NEG [facility] pH (U) 6.0 [pH] Normal 4.6-8.0 [facility] PROT TRACE Abnormal NEG [facility] SP GRAV,URINE 1.025 Normal 1.005-1.03 0 [facility] URO 0.2 MG/DL Normal 0-1.0 [facility] B12/Folate Panelon Cobalamin (Vitamin B12) [Mass/Vol] 507 pg/mL Normal 232-1245 [facility] Comment on above: Performed By: #### F T4, B12FOL, TSHX #### [employer] [address] [place] [address] [phone] Sewer Line Repairer: Juan F Dominguez MD Folic Acid 10.6 ng/mL Normal >4.8 [facility] Comment on above: Performed By: #### F T4, B12FOL, TSHX #### [facility] [address] [place] [address] [phone] Sewer Line Repairer: Juan F Dominguez MD T4, Freeon 10-13-2020 Thyroxine, Free 0.97 ng/dL 0.93 - 1.7 ng/dL [place], [place] TSH w/reflex to FT4on 2020 TSH Qn 0.04 m[IU]/L Low 0.30-5.00 [facility] Comment on above: Performed By: #### F T4, B12FOL, TSHX #### [facility] [address] [place] [address] [phone] Sewer Line Repairer: Juan F Dominguez MD TSH with Reflexon 10-13-2020 Interpretation and review of laboratory results Abnormal [place], [place] TSH Qn 0.04 m[IU]/L Low [place], [place] Thyroxine, Freeon 10-13-2020 Thyroxine, Free 0.97 ng/dL Normal 0.93-1.70 [facility] Comment on above: Performed By: #### F T4, B12FOL, TSHX #### [facility] [employer] [address] [place] [address] [phone] Sewer Line Repairer: Juan F Dominguez MD Vitamin B12 & Folateon 10-13 Cobalamin (Vitamin B12) [Mass/Vol] 507 pg/mL 232 - 1245 pg/mL [place], [place] Folate 10.6 ng/mL >4.8 [facility], [place] C REACTIVE PROTEINon 021 C REACTIVE PROTEIN 0.3 MG/DL Normal 0-2.0 [facility] Comment on above: Result Comment: LESS THAN Performed at [address] [address] Performed By: #### C RP #### [facility] [address] [address] CBC with Diffon 10-11-2020 AB IMMATURE NEUT 0.00 K/UL Normal 0.0-0.1 [facility] ABS BASO 0.02 K/UL Normal 0.00-0.22 [facility] ABS EOS 0.21 K/UL Normal 0-0.45 [facility] ABS NEUTROPHILS 1.64 K/UL Low 1.8-7.7 [facility] ABS.NEUT.CALCULATED 1.64 K/UL Normal [facility] Comment on above: Result Comment: Perf ormed at [facility] [address] [facility] [address] Basophils/100 WBC (Bld) 0.50 % Normal 0-1 [facility] DIFF TYPE AUTO DIFF Normal [facility] Eosinophils/100 WBC (Bld) 5.10 % High 0-3 [facility] Erythrocyte distribution width (RBC) [Ratio] 11.3 % Low 11.7-15.0 [facility] Hematocrit (Bld) [Volume fraction] 39.6 % Low 41-50 [facility] Hemoglobin (Bld) [Mass/Vol] 13.6 g/dL Normal 13.5-16.5 [facility] Lymphocytes (Bld) [#/Vol] 1.74 10*3/uL Normal 1.2-3.2 [facility] Lymphocytes/100 WBC (Bld) 42.00 % High 20-40 [facility] MCH (RBC) [Entitic mass] 36.2 pg High 26-34 [facility] MCHC 34.3 % Normal 31-37 [facility] MCV (RBC) [Entitic vol] 105.3 fL High 80-100 [facility] MEAN PLT VOL 8.4 CU Normal 7.0-12.6 [facility] Monocytes (Bld) [#/Vol] 0.53 10*3/uL Normal 0-0.8 [facility] Monocytes/100 WBC (Bld) 12.80 % High 0-8 [facility] Neutrophils/100 WBC (Bld) 0.00 % Normal 0.0-1.0 [facility] Neutrophils/100 WBC (Bld) 39.60 % Low 50-70 [facility] Platelets (Bld) [#/Vol] 186 10*3/uL Normal 150-450 [facility] RBC (Bld) [#/Vol] 3.76 10*6/uL Low 4.5-5.5 [facility] RDW-SD 44.8 FL Normal 37.0-54.0 [facility] WBC (Bld) [#/Vol] 4.1 10*3/uL Low 4.5-11.0 [facility] SEDIMENTATION RATEon 021 SEDIMENTATION RATE 50 MM/HR High 0-12 [facility] Comment on above: Result Comment: Perf ormed at [facility] [address] [facility] [address] Automated basophil %on 10-07 Basophils/100 WBC (Bld) 0.2 % [facility] Automated basophil counton 0 2020 Basophils (Bld) [#/Vol] 0.0 10*3/uL 0.0-0.2 [facility] Automated blood lymphocyte c ount (number/volume)on 2020 Lymphocytes (Bld) [#/Vol] 1.2 10*3/uL 1.00-4.8 [facility] Automated blood lymphocyte c ount as percentage of total leukocyteson 2020 Lymphocytes/100 WBC (Bld) 25.0 % [facility] Automated blood monocyte cou nton 2020 Monocytes (Bld) [#/Vol] 0.6 10*3/uL 0.0-0.8 [facility] Automated blood platelet cou nt (count/volume)on 2020 Platelets (Bld) [#/Vol] 177 10*3/uL 150-450 [facility] Automated blood platelet rishabh n volume measurementon 2020 Platelet mean volume (Bld) [Entitic vol] 6.9 fL 6.6-10.1 [facility] Automated eosinophil %on Eosinophils/100 WBC (Bld) 3.8 % [facility] Automated eosinophil counton 2020 Eosinophils (Bld) [#/Vol] 0.2 10*3/uL 0.0-0.45 [facility] Automated erythrocyte distri bution width ratioon 2020 Erythrocyte distribution width (RBC) [Ratio] 12.3 % 12.0-14.8 [facility] Automated erythrocyte mean c orpuscular hemoglobin (mass per erythrocyte)on 2020 MCH (RBC) [Entitic mass] 35.9 pg 27.5-35.2 [facility] Automated erythrocyte mean c orpuscular hemoglobin concentration measurement (mass/volon 2020 MCHC (RBC) [Mass/Vol] 34.2 g/dL 32.5-35.6 [facility] Automated erythrocyte mean c orpuscular volumeon 2020 MCV (RBC) [Entitic vol] 105.1 fL 83.5-101 [facility] Automated monocyte %on 10-07 Monocytes/100 WBC (Bld) 12.5 % [facility] Automated neutrophil %on Neutrophils/100 WBC (Bld) 58.5 % [facility] Blood erythrocytes automated count (number/volume)on 2020 RBC (Bld) [#/Vol] 3.74 10*6/uL 3.90-5.60 [facility] Blood hemoglobin measurement (mass/volume)on 2020 Hemoglobin (Bld) [Mass/Vol] 13.4 g/dL 13.0-17.0 [facility] Blood leukocytes automated c ount (number/volume)on 2020 WBC (Bld) [#/Vol] 4.6 10*3/uL 4.5-11.0 [facility] Blood neutrophil count by au tomated method (number/volume)on 2020 Neutrophils (Bld) [#/Vol] 2.7 10*3/uL 1.8-7.7 [facility] Body fluid albumin measureme nt (mass/volume)on 2020 Albumin (Body fld) [Mass/Vol] 3.6 g/dL 3.2-5.5 [facility] Cholesterol [Mass/volume] in Serum or Plasmaon 2020 Cholesterol [Mass/Vol] 93 mg/dL 140-200 [facility] Comment on above: Chol less than 200 m g/dl low riskChol 201-239 mg/dl borderline riskChol 240 mg/dl and greater high risk Cholesterol in LDL [Mass/vol ume] in Serum or Plasma by calculationon 2020 Cholesterol in LDL [Mass/Vol] 42 mg/dL 0-100 [facility] Comment on above: LDL ATP III CLASSIFI CATIONLDL less than 100 mg/dL OptimalLDL 100-129 mg/dL Near or above optimalLDL 130-159 mg/dL Borderline highLDL 160-189 mg/dL HighLDL greater than 189 mg/dL Very high Cholesterol in VLDL [Mass/vo lume] in Serum or Plasma by calculationon 2020 Cholesterol in VLDL [Mass/Vol] 7 mg/dL [facility] Estimated glomerular filtrat ion rate (GFR) non- Americanon 2020 GFR/1.73 sq M predicted among non-blacks MDRD (S/P/Bld) [Vol rate/Area] 51 mL/min/{1.73_m2} [facility] Hematocrit [Volume Fraction] of Blood by Automated counton 2020 Hematocrit (Bld) [Volume fraction] 39.3 % 38.8-50.0 [facility] Otheron 2020 GFR/1.73 sq M.predicted MDRD (S/P/Bld) [Vol rate/Area] mL/min/{1.73_m2} [facility] Comment on above: GFR estimated refere nce range: According to KDOQI guidelines, <60 ml/min/1.73m2 is sufficient to diagnose a patient with chronic kidney disease. Nucleated RBC/100 WBC (Bld) [Ratio] 0.0 % 0-0.5 [facility] Creatinine Clearance (Chem N/A [facility] Protein [Mass/volume] in Ser um or Plasmaon 2020 Protein [Mass/Vol] 7.3 g/dL 6.1-7.9 [facility] Serum globulin measurement b y calculation (mass/volume)on 2020 Globulin (S) [Mass/Vol] 3.7 g/dL [facility] Serum or plasma alanine huntley otransferase measurement without P-5'-P (enzymatic activion 2020 ALT No additional P-5'-P [Catalytic activity/Vol] 23 U/L 10-60 [facility] Serum or plasma albumin/glob ulin mass ratioon 2020 Albumin/Globulin [Mass ratio] 1.0 {ratio} [facility] Serum or plasma alkaline latoya sphatase measurement (enzymatic activity/volume)on 2020 ALP [Catalytic activity/Vol] 63 U/L 32-92 [facility] Serum or plasma aspartate am inotransferase measurement (enzymatic activity/volume)on 2020 AST [Catalytic activity/Vol] 18 U/L 10-42 [facility] Serum or plasma calcium ilana urement (mass/volume)on 2020 Calcium [Mass/Vol] 9.8 mg/dL 8.2-10.2 [facility] Serum or plasma chloride rishabh surement (moles/volume)on 2020 Chloride [Moles/Vol] 104 mmol/L 95-114 [facility] Serum or plasma creatinine m easurement with calculation of estimated glomerular filtron 2020 Creatinine [Mass/Vol] 1.37 mg/dL 0.64-1.27 [facility] Serum or plasma glucose ilana urement (mass/volume)on 2020 Glucose [Mass/Vol] 116 mg/dL 70-100 [facility] Comment on above: ADA recommended refe rence rangeRandom Glucose Reference Range is dependent on time and content of last meal. Glucose of more than 200 mg/dL in a nonstressed, ambulatory subject supports the diagnosis of Diabetes Mellitus. Serum or plasma high density lipoprotein (HDL) cholesterol measurementon 2020 Cholesterol in HDL [Mass/Vol] 43 mg/dL 29-71 [facility] Comment on above: HDL CHOL ATP-III CLA SSIFICATION Cardiovascular RiskHDL > or equal to 60 mg/dL LOWHDL < 40 mg/dL HIGH Serum or plasma potassium me asurement (moles/volume)on 2020 Potassium [Moles/Vol] 4.1 mmol/L 3.5-5.1 [facility] Serum or plasma sodium measu rement (moles/volume)on 2020 Sodium [Moles/Vol] 140 mmol/L 136-146 [facility] Serum or plasma total biliru bin measurement (mass/volume)on 2020 Bilirubin [Mass/Vol] 0.7 mg/dL 0.3-1.2 [facility] Serum or plasma total carbon dioxide measurement (moles/volume)on 2020 CO2 [Moles/Vol] 24.4 mmol/L 22.0-30.0 [facility] Serum or plasma total choles terol/high density lipoprotein (HDL) cholesterol mass noni 2020 Cholesterol.total/Chol esterol in HDL [Mass ratio] 2.2 {ratio} [facility] Serum or plasma urea nitroge n measurement (mass/volume)on 2020 Urea nitrogen [Mass/Vol] 24 mg/dL 9-23 [facility] Triglyceride [Mass/volume] i n Serum or Plasmaon 2020 Triglyceride [Mass/Vol] 39 mg/dL 35-149 [facility] Comment on above: TRIG ATP III [...] Jeffery Caceres MD 02/04/20 Final result Normal [facility] 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 [place], [place] EXAMINATION: CT OF T HE HEAD [...] of the visualized skull or soft tissues. [place], [place], M[facility] Incoming R adiant Results From [employer] - 02/04/2020 4:14 PM EDT EXAMINATION: CT [...] cerebral artery infarct without evidence for hemorrhage. [place], [place] EVENT MONITORon 01-07-[address] [id number] EVENT MONITOR PATIENT NAME: NEIL WILCOX : 1945 MED REC NO: [id number] ROOM: [facility] ACCOUNT NO: [id number] ADMIT DATE: 12/21/2019 PROVIDER: Sabine Schrader EVENT [...] couplets. SABINE SCHRADER JI/BAN Doc#: Unknown Normal [facility] CTA HEAD NECK W CONTRASTon 0 12-22-2019 [...] Wilton Parekh MD 12/22/19 Final result Normal [facility] Comp Metabolic Pr/rfx MGon 0 12-22-2019 AST [Catalytic activity/Vol] 21 U/L Normal <40 [facility] Comment on above: Performed By: #### C MPX, GLYHGB, LIPR, LACTIC, CDP #### [facility] [address] [place] [phone] Sewer Line Repairer: Juan F Dominguez MD Drug Scr, Abuse, Uron 2019 Amphetamine(s),Ur Negative Normal NEG [facility] Comment on above: Result Comment: (Positive cutoff 1000 ng/mL) Performed By: #### Artem AU, UA, UMICAO #### [facility] [address] [place] [phone] Sewer Line Repairer: Juan F Dominguez MD Barbiturate(s),Ur Positive Abnormal NEG [facility] Comment on above: Result Comment: (Positive cutoff 200 ng/mL) Performed By: #### Artem SCHULZ UA, UMICAO #### [employer] [address] [place] [phone] Sewer Line Repairer: Juan F Dominguez MD Base excess Calc (Bld) [Moles/Vol] Negative Normal NEG [facility] Comment on above: Result Comment: (Positive cutoff 300 ng/mL) Performed By: #### Artem AU, UA, UMICAO #### [employer] [address] [place] [phone] Sewer Line Repairer: Juan F Dominguez MD Benzodiazepine(s) Negative Normal NEG [facility] Comment on above: Result Comment: (Positive cutoff 200 ng/mL) Performed By: #### Artem AU, UA, UMICAO #### [facility] [address] [place] [phone] Sewer Line Repairer: Juan F Dominguez MD Cannabinoid(s),Ur Negative Normal NEG [facility] Comment on above: Result Comment: (Positive cutoff 50 ng/mL) Performed By: #### Artem AU, UA, UMICAO #### [facility] [address] [place] [phone] Sewer Line Repairer: Juan F Dominguez MD Interpretive Info Assay provides medic al screening only. The absence of expected drug(s) and/or Normal [facility] Comment on above: Result Comment: meta bolite(s) may indicate diluted or adulterated urine, limitations of testing or timing of collection. Testing for legal purposes should be confirmed by another method. To request confirmation of test result, please call the lab within 7 days of sample submission. Performed By: #### Artem SCHULZ UA UMICAO #### [employer] [address] [place] [phone] Sewer Line Repairer: Juan F Dominguez MD Methadone Ql (U) Negative Normal NEG [facility] Comment on above: Result Comment: (Positive cutoff 300 ng/mL) Performed By: #### ALEXIS MIRANDA, UMICAO #### [employer] [address] [place] [phone] Sewer Line Repairer: Juan F Dominguez MD Opiate(s), Ur Negative Normal NEG [facility] Comment on above: Result Comment: (Positive cutoff 300 ng/mL) Performed By: #### Artem SCHULZ UA, UMICAO #### [employer] [address] [place] [phone] Sewer Line Repairer: Juan F Dominguez MD Oxycodone, Urine Negative Normal NEG [facility] Comment on above: Result Comment: (Positive cutoff 100 ng/mL) Performed By: #### Artem SCHULZ UA, UMICAO #### [employer] [address] [place] [phone] Sewer Line Repairer: Juan F Dominguez MD Phencyclidine, Ur Negative Normal NEG [facility] Comment on above: Result Comment: (Positive cutoff 25 ng/mL) Performed By: #### Artem SCHULZ UA, UMICAO #### [employer] [address] [place] [phone] Sewer Line Repairer: Juan F Dominguez MD Hemoglobin A1Con 12-22-2019 HbA1c (Bld) [Mass fraction] 120 mg/dL Normal [facility] Comment on above: Result Comment: The ADA and AACC recommend providing the estimated average glucose result to permit better patient understanding of their HBA1c result. Performed By: #### D ALEXIS SCHULZ, UMICAO #### [facility] [address] [place] [address] [phone] Sewer Line Repairer: Juan F Dominguez MD HbA1c (Bld) [Mass fraction] 5.8 % Normal 4.0-6.0 [facility] Comment on above: Performed By: #### D ALEXIS SCHULZ, UMICAO #### [facility] [address] [place] [address] [phone] Sewer Line Repairer: Juan F Dominguez MD Lactic Acidon 12-22-2019 Lactate [Moles/Vol] 1.2 mmol/L Normal 0.7-2.1 [facility] Comment on above: Performed By: #### ALEXIS MIRANDA, UMICAO #### [facility] [address] [place] [phone] Sewer Line Repairer: Juan F Dominguez MD Lipid Profileon 12-22-2019 Cholesterol [Mass/Vol] 137 mg/dL Normal <200 [facility] Comment on above: Result Comment: Cholesterol Guidelines: <200 Desirable 200-240 Borderline >240 Undesirable Performed By: #### D ALEXIS SCHULZ, UMICAO #### [facility] [employer] [address] [place] [phone] Sewer Line Repairer: Juan F Dominguez MD Cholesterol in HDL [Mass/Vol] 53 mg/dL Normal >40 [facility] Comment on above: Result Comment: HDL Guidelines: <40 Undesirable 40-59 Borderline >59 Desirable Performed By: #### D ZEUS UA, UMICAO #### [facility] [employer] [address] [place] [phone] Sewer Line Repairer: Juan F Dominguez MD Cholesterol in LDL [Mass/Vol] 73 mg/dL Normal 0-130 [facility] Comment on above: Result Comment: LDL Guidelines: <100 Desirable 100-129 Near to/above Desirable 130-159 Borderline >159 Undesirable Direct (measured) LDL and calculated LDL are not interchangeable tests. Performed By: #### ALEXIS MIRANDA, UMICAO #### [facility] [address] [place] [phone] Sewer Line Repairer: Juan F Dominguez MD Cholesterol.total/Chol esterol in HDL [Mass ratio] 2.6 {ratio} Normal <5 [facility] Comment on above: Performed By: #### Artem SCHULZ UA, UMICAO #### [facility] [employer] [address] [place] [address] [phone] Sewer Line Repairer: Juan F Dominguez MD Triglyceride [Mass/Vol] 57 mg/dL Normal <150 [facility] Comment on above: Result Comment: Triglyceride Guidelines: <150 Desirable 150-199 Borderline 200-499 High >499 Very high Based on AHA Guidelines for fasting triglyceride, June 2012. Performed By: #### ALEXIS MIRANDA, UMICAO #### [facility] [employer] [address] [place] [address] [phone] Sewer Line Repairer: Juan F Dominguez MD Urinalysis, Routineon 2019 Acetoacetic Acid,Ur TRACE Abnormal NEG [facility] Comment on above: Performed By: #### ALEXIS MIRANDA, UMICAO #### [facility] [employer] [address] [place] [address] [phone] Sewer Line Repairer: Juan F Dominguez MD Bilirubin, SemiQt,Ur Negative Normal NEG [facility] Comment on above: Performed By: #### ALEXIS MIRANDA, UMICAO #### [employer] [address] [place] [address] [phone] Sewer Line Repairer: Juan F Dominguez MD Color (U) YELLOW Normal YEL [facility] Comment on above: Performed By: #### ALEXIS MIRANDA, UMICAO #### [facility] [address] [place] [phone] Sewer Line Repairer: Juan F Dominguez MD Glucose Ql (U) Negative Normal NEG [facility] Comment on above: Performed By: #### Artem SCHULZ UA, UMICAO #### [facility] [address] [place] [address] [phone] Sewer Line Repairer: Juan F Dominguez MD Hemoglobin, Ur Negative Normal NEG [facility] Comment on above: Performed By: #### Artem SCHULZ UA, UMICAO #### [facility] [address] [place] [phone] Sewer Line Repairer: Juan F Dominguez MD Leukocyte esterase Test strip Ql (U) Negative Normal NEG [facility] Comment on above: Performed By: #### Artem SCHULZ UA, UMICAO #### [facility] [employer] [address] [place] [address] [phone] Sewer Line Repairer: Juan F Dominguez MD Nitrite,Ur Negative Normal NEG [facility] Comment on above: Performed By: #### Artem SCHULZ UA, UMICAO #### [facility] [employer] [address] [place] [address] [phone] Sewer Line Repairer: Juan F Dominguez MD pH (U) 5.0 [pH] Normal 5.0-8.0 [facility] Comment on above: Performed By: #### Artem SCHULZ UA, UMICAO #### [address] [address] Sewer Line Repairer: Juan F Dominguez MD Protein Ql (U) 1+ Abnormal NEG [facility] Comment on above: Performed By: #### Artem SCHULZ UA, UMICAO #### [facility] [address] [place] [address] [phone] Sewer Line Repairer: Juan F Dominguez MD Specific gravity (U) [Rel density] 1.025 Normal 1.005-1.03 0 [facility] Comment on above: Performed By: #### Artem SCHULZ UA, UMICAO #### [facility] [employer] [address] [place] [address] [phone] Sewer Line Repairer: Juan F Dominguez MD Turbidity CLEAR Normal CLEAR [facility] Comment on above: Performed By: #### Artem AU, UA, UMICAO #### [facility] [address] [place] [phone] Sewer Line Repairer: Juan F Dominguez MD Urobilinogen,Ur Normal Normal NORM [facility] Comment on above: Performed By: #### Artem SCHULZ, UA, UMICAO #### [facility] [address] [place] [phone] Sewer Line Repairer: Juan F Dominguez MD Urinalysis,Microon 0 ----- Normal [facility] Comment on above: Performed By: #### Artem SCHULZ, UA, UMICAO #### [address] [address] Sewer Line Repairer: Juan F Dominguez MD Casts LM.LPF (Urine sed) [#/Area] 2 TO 5 HYALINE Normal 0-8 [facility] Comment on above: Result Comment: Refe rence range defined for non-centrifuged specimen. Performed By: #### Artem SCHULZ, UA, UMICAO #### [facility] [employer] [address] [place] [phone] Sewer Line Repairer: Juan F Dominguez MD Epithelial cells LM.HPF (Urine sed) [#/Area] 0 TO 2 Normal 0-5 [facility] Comment on above: Performed By: #### Artem AU, UA, UMICAO #### [facility] [address] [place] [phone] Sewer Line Repairer: Juan F Dominguez MD RBC (U) [#/Vol] 0 TO 2 Normal 0-4 [facility] Comment on above: Result Comment: Refe rence range defined for non-centrifuged specimen. Performed By: #### Artem AU, UA, UMICAO #### [facility] [employer] [address] [place] [phone] Sewer Line Repairer: Juan F Dominguez MD WBC (U) [#/Vol] 2 TO 5 Normal 0-5 [facility] Comment on above: Performed By: #### D AU, UA, UMICAO #### [address] [address] Sewer Line Repairer: Juan F Dominguez MD CBC with Diffon 12-21-2019 Abs. Basophil <0.03 Normal 0.00-0.20 [facility] Comment on above: Performed By: #### C MPX, GLYHGB, LIPR, LACTIC, CDP #### [place] [address] Sewer Line Repairer: Juan F Dominguez MD Abs.Imm.Granulocyte <0.03 Normal 0.00-0.30 [facility] Comment on above: Performed By: #### C MPX, GLYHGB, LIPR, LACTIC, CDP #### [place] [address] Sewer Line Repairer: Juan F Dominguez MD Abs.Neutrophil (Seg) 2.41 k/uL Normal 1.50-8.10 [facility] Comment on above: Performed By: #### C MPX, GLYHGB, LIPR, LACTIC, CDP #### [place] [address] Sewer Line Repairer: Juan F Dominguez MD Basophils/100 WBC (Bld) 0 % Normal 0-2 [facility] Comment on above: Performed By: #### C MPX, GLYHGB, LIPR, LACTIC, CDP #### [place] [address] Sewer Line Repairer: Juan F Dominguez MD Eosinophils (Bld) [#/Vol] 0.08 10*3/uL Normal 0.00-0.44 [facility] Comment on above: Performed By: #### C MPX, GLYHGB, LIPR, LACTIC, CDP #### [address] [address] Sewer Line Repairer: Juan F Dominguez MD Eosinophils/100 WBC (Bld) 2 % Normal 1-4 [facility] Comment on above: Performed By: #### C MPX, GLYHGB, LIPR, LACTIC, CDP #### [address] [address] Sewer Line Repairer: Juan F Dominguez MD Erythrocyte distribution width (RBC) [Ratio] 11.9 % Normal 11.8-14.4 [facility] Comment on above: Performed By: #### C MPX, GLYHGB, LIPR, LACTIC, CDP #### [address] [address] Sewer Line Repairer: Juan F Dominguez MD Hematocrit (Bld) [Volume fraction] 38.8 % Low 40.7-50.3 [facility] Comment on above: Performed By: #### C MPX, GLYHGB, LIPR, LACTIC, CDP #### [address] [address] Sewer Line Repairer: Juan F Dominguez MD Hemoglobin (Bld) [Mass/Vol] 13.6 g/dL Normal 13.0-17.0 [facility] Comment on above: Performed By: #### C MPX, GLYHGB, LIPR, LACTIC, CDP #### [address] [address] Sewer Line Repairer: Juan F Dominguez MD Immature granulocytes (Bld) [#/Vol] 0 % Normal 0 [facility] Comment on above: Performed By: #### C MPX, GLYHGB, LIPR, LACTIC, CDP #### [address] [address] Sewer Line Repairer: Juan F Dominguez MD Lymphocytes (Bld) [#/Vol] 1.11 10*3/uL Normal 1.10-3.70 [facility] Comment on above: Performed By: #### C MPX, GLYHGB, LIPR, LACTIC, CDP #### [address] [address] Sewer Line Repairer: Juan F Dominguez MD Lymphocytes/100 WBC (Bld) 28 % Normal 24-43 [facility] Comment on above: Performed By: #### C MPX, GLYHGB, LIPR, LACTIC, CDP #### [address] [address] Sewer Line Repairer: Juan F Dominguez MD MCH (RBC) [Entitic mass] 35.8 pg High 25.2-33.5 [facility] Comment on above: Performed By: #### C MPX, GLYHGB, LIPR, LACTIC, CDP #### [place] [address] Sewer Line Repairer: Juan F Dominguez MD MCHC (RBC) [Mass/Vol] 35.1 g/dL High 28.4-34.8 [facility] Comment on above: Performed By: #### C MPX, GLYHGB, LIPR, LACTIC, CDP #### [address] [address] Sewer Line Repairer: Juan F Dominguez MD MCV (RBC) [Entitic vol] 102.1 fL Normal 82.6-102.9 [facility] Comment on above: Performed By: #### C MPX, GLYHGB, LIPR, LACTIC, CDP #### [address] [address] Sewer Line Repairer: Juan F Dominguez MD Monocytes (Bld) [#/Vol] 0.41 10*3/uL Normal 0.10-1.20 [facility] Comment on above: Performed By: #### C MPX, GLYHGB, LIPR, LACTIC, CDP #### [address] [address] Sewer Line Repairer: Juan F Dominguez MD Monocytes/100 WBC (Bld) 10 % Normal 3-12 [facility] Comment on above: Performed By: #### C MPX, GLYHGB, LIPR, LACTIC, CDP #### [address] [address] Sewer Line Repairer: Juan F Dominguez MD Neutrophil (Seg) 60 % Normal 36-65 [facility] Comment on above: Performed By: #### C MPX, GLYHGB, LIPR, LACTIC, CDP #### [address] [address] Sewer Line Repairer: Juan F Dominguez MD NRBC Automated 0.0 per 100 WBC Normal 0.0 [facility] Comment on above: Performed By: #### C MPX, GLYHGB, LIPR, LACTIC, CDP #### [address] [address] Sewer Line Repairer: Juan F Dominguez MD Platelet mean volume (Bld) [Entitic vol] 8.2 fL Normal 8.1-13.5 [facility] Comment on above: Performed By: #### C MPX, GLYHGB, LIPR, LACTIC, CDP #### [address] [address] Sewer Line Repairer: Juan F Dominguez MD Platelets (Bld) [#/Vol] 200 10*3/uL Normal 138-453 [facility] Comment on above: Performed By: #### C MPX, GLYHGB, LIPR, LACTIC, CDP #### [address] [address] Sewer Line Repairer: Juan F Dominguez MD RBC (Bld) [#/Vol] 3.80 10*6/uL Low 4.21-5.77 [facility] Comment on above: Performed By: #### C MPX, GLYHGB, LIPR, LACTIC, CDP #### [facility] [address] [place] [phone] Sewer Line Repairer: Juan F Dominguez MD WBC (Bld) [#/Vol] 4.0 10*3/uL Normal 3.5-11.3 [facility] Comment on above: Performed By: #### C MPX, GLYHGB, LIPR, LACTIC, CDP #### [address] [address] Sewer Line Repairer: Juan F Dominguez MD Auto Diff Performed NOT REPORTED Normal [facility] Comment on above: Performed By: #### C MPX, GLYHGB, LIPR, LACTIC, CDP #### [address] [address] Sewer Line Repairer: Juan F Dominguez MD Platelets (Bld) [#/Vol] NOT REPORTED Normal [facility] Comment on above: Performed By: #### C MPX, GLYHGB, LIPR, LACTIC, CDP #### [address] [address] Sewer Line Repairer: Juan F Dominguez MD RBC morphology finding Nom (Bld) NOT REPORTED Normal [facility] Comment on above: Performed By: #### C MPX, GLYHGB, LIPR, LACTIC, CDP #### [address] [address] Sewer Line Repairer: Juan F Dominguez MD WBC Morphology NOT REPORTED Normal [facility] Comment on above: Performed By: #### C MPX, GLYHGB, LIPR, LACTIC, CDP #### [address] [address] Sewer Line Repairer: Juan F Dominguez MD Comp Metabolic Pr/rfx MGon 0 12-21-2019 (cont.) Normal [facility] Comment on above: Result Comment: Aver age GFR for 70 or more years old: 75 mL/min/1.73sq m Chronic Kidney Disease: <60 mL/min/1.73sq m Kidney failure: <15 mL/min/1.73sq m eGFR calculated using average adult body mass. Additional eGFR calculator available at: http://www.[employer]/multiple_crcl_2012.htm Performed By: #### C MPX, GLYHGB, LIPR, LACTIC, CDP #### [address] [address] Sewer Line Repairer: Juan F Dominguez MD Albumin [Mass/Vol] 3.9 g/dL Normal 3.5-5.2 [facility] Comment on above: Performed By: #### C MPX, GLYHGB, LIPR, LACTIC, CDP #### [address] [address] Sewer Line Repairer: Juan F Dominguez MD Albumin/Globulin [Mass ratio] 1.2 {ratio} Normal 1.0-2.5 [facility] Comment on above: Performed By: #### C MPX, GLYHGB, LIPR, LACTIC, CDP #### [address] [address] Sewer Line Repairer: Juan F Dominguez MD Alkaline Phos 80 U/L Normal 40-129 [facility] Comment on above: Performed By: #### C MPX, GLYHGB, LIPR, LACTIC, CDP #### [address] [address] Sewer Line Repairer: Juan F Dominguez MD ALT [Catalytic activity/Vol] 22 U/L Normal 5-41 [facility] Comment on above: Performed By: #### C MPX, GLYHGB, LIPR, LACTIC, CDP #### [address] [address] Sewer Line Repairer: Juan F Dominguez MD Anion gap [Moles/Vol] 15 mmol/L Normal 9-17 [facility] Comment on above: Performed By: #### C MPX, GLYHGB, LIPR, LACTIC, CDP #### [address] [address] Sewer Line Repairer: Juan F Dominguez MD Bilirubin Ql (U) 0.74 mg/dL Normal 0.3-1.2 [facility] Comment on above: Performed By: #### C MPX, GLYHGB, LIPR, LACTIC, CDP #### [facility] [address] [place] [address] Sewer Line Repairer: Juan F Dominguez MD Calcium [Mass/Vol] 9.5 mg/dL Normal 8.6-10.4 [facility] Comment on above: Performed By: #### C MPX, GLYHGB, LIPR, LACTIC, CDP #### [address] [address] Sewer Line Repairer: Juan F Dominguez MD Chloride [Moles/Vol] 99 mmol/L Normal 98-107 [facility] Comment on above: Performed By: #### C MPX, GLYHGB, LIPR, LACTIC, CDP #### [address] [address] Sewer Line Repairer: Juan F Dominguez MD CO2 [Moles/Vol] 20 mmol/L Normal 20-31 [facility] Comment on above: Performed By: #### C MPX, GLYHGB, LIPR, LACTIC, CDP #### [address] [address] Sewer Line Repairer: Juan F Dominguez MD Creatinine [Mass/Vol] 0.77 mg/dL Normal 0.70-1.20 [facility] Comment on above: Performed By: #### C MPX, GLYHGB, LIPR, LACTIC, CDP #### [address] [address] Sewer Line Repairer: Juan F Dominguez MD GFR, Amer >60 Normal >60 [facility] Comment on above: Performed By: #### C MPX, GLYHGB, LIPR, LACTIC, CDP #### [facility] [address] [place] [address] Sewer Line Repairer: Juan F Dominguez MD GFR,non Amer >60 Normal >60 [facility] Comment on above: Performed By: #### C MPX, GLYHGB, LIPR, LACTIC, CDP #### [facility] [address] [place] [address] Sewer Line Repairer: Juan F Dominguez MD Glucose [Mass/Vol] 86 mg/dL Normal 70-99 [facility] Comment on above: Performed By: #### C MPX, GLYHGB, LIPR, LACTIC, CDP #### [address] [address] Sewer Line Repairer: Juan F Dominguez MD Potassium [Moles/Vol] 4.2 mmol/L Normal 3.7-5.3 [facility] Comment on above: Performed By: #### C MPX, GLYHGB, LIPR, LACTIC, CDP #### [address] [address] Sewer Line Repairer: Juan F Dominguez MD Protein [Mass/Vol] 7.2 g/dL Normal 6.4-8.3 [facility] Comment on above: Performed By: #### C MPX, GLYHGB, LIPR, LACTIC, CDP #### [facility] [address] [place] [address] Sewer Line Repairer: Juan F Dominguez MD Sodium [Moles/Vol] 134 mmol/L Low 135-144 [facility] Comment on above: Performed By: #### C MPX, GLYHGB, LIPR, LACTIC, CDP #### [facility] [employer] [address] [place] [address] Sewer Line Repairer: Juan F Dominguez MD Urea nitrogen [Mass/Vol] 16 mg/dL Normal 8-23 [facility] Comment on above: Performed By: #### C MPX, GLYHGB, LIPR, LACTIC, CDP #### [facility] [address] [place] [address] Sewer Line Repairer: Juan F Dominguez MD BUN/CRE Ratio NOT REPORTED Normal - [facility] Comment on above: Performed By: #### C MPX, GLYHGB, LIPR, LACTIC, CDP #### [facility] [address] [place] [address] Sewer Line Repairer: Juan F Dominguez MD Staging: NOT REPORTED Normal [facility] Comment on above: Performed By: #### C MPX, GLYHGB, LIPR, LACTIC, CDP #### [address] [address] Sewer Line Repairer: Juan F Dominguez MD Drug Scr, Abuse, Uron 2019 Buprenorphrine, Ur NOT REPORTED Normal NEG [facility] Comment on above: Performed By: #### Artem SCHULZ UA, UMICAO #### [facility] [employer] [address] [place] [address] Sewer Line Repairer: Juan F Dominguez MD MDMA, Urine NOT REPORTED Normal NEG [facility] Comment on above: Performed By: #### Artem SCHULZ UA, UMICAO #### [facility] [address] [place] [address] Sewer Line Repairer: Juan F Dominguez MD Methamphetamine, Ur NOT REPORTED Normal NEG [facility] Comment on above: Performed By: #### Artem SCHULZ UA, UMICAO #### [facility] [address] [place] [address] Sewer Line Repairer: Juan F Dominguez MD Propoxyphene,Urine NOT REPORTED Normal NEG [facility] Comment on above: Performed By: #### Artem ZEUS UA, UMICAO #### [facility] [place] [address] Sewer Line Repairer: Juan F Dominguez MD Tricyclic antidepressants Screen Ql (U) NOT REPORTED Normal NEG [facility] Comment on above: Performed By: #### D AU, UA, UMICAO #### [facility] [address] [place] [phone] Sewer Line Repairer: Juan F Dominguez MD Lactic Acidon 12-21-2019 Lactate [Moles/Vol] NOT REPORTED Normal [facility] Comment on above: Performed By: #### D ZEUS UA, UMICAO #### [facility] [employer] [address] [place] [address] Sewer Line Repairer: Juan F Dominguez MD Lipid Profileon 12-21-2019 Cholesterol in VLDL [Mass/Vol] NOT REPORTED Normal 10-23 [facility] Comment on above: Performed By: #### D ZEUS UA, UMICAO #### [facility] [address] [place] [phone] Sewer Line Repairer: Juan F Dominguez MD Urinalysis, Routineon 2019 Comment NOT REPORTED Normal [facility] Comment on above: Performed By: #### D ZEUS UA, UMICAO #### [facility] [employer] [address] [place] [phone] Sewer Line Repairer: Juan F Dominguez MD Urinalysis,Microon 0 Amorphous sediment LM Ql (Urine sed) NOT REPORTED Normal NONE [facility] Comment on above: Performed By: #### D ZEUS UA, UMICAO #### [facility] [employer] [address] [place] [address] Sewer Line Repairer: Juan F Dominguez MD Bacteria LM.HPF (Urine sed) [#/Area] NOT REPORTED Normal NONE [facility] Comment on above: Performed By: #### D ZEUS UA, UMICAO #### [facility] [employer] [address] [place] [address] [place] [address] Sewer Line Repairer: Juan F Dominguez MD Crystals LM Nom (Urine sed) NOT REPORTED Normal NONE [facility] Comment on above: Performed By: #### D AU, UA, UMICAO #### [facility] [address] [place] [phone] Sewer Line Repairer: Juan F Dominguez MD Epithelial, Renal NOT REPORTED Normal 0 [facility] Comment on above: Performed By: #### D AU, UA, UMICAO #### [facility] [address] [place] [address] Sewer Line Repairer: Juan F Dominguez MD Mucus Strands NOT REPORTED Normal NONE [facility] Comment on above: Performed By: #### D AU, UA, UMICAO #### [facility] [address] [place] [address] Sewer Line Repairer: Juan F Dominguez MD Other Observations NOT REPORTED Normal NREQ [facility] Comment on above: Performed By: #### D AU, UA, UMICAO #### [facility] [address] [place] [address] Sewer Line Repairer: Juan F Dominguez MD Trichomonas NOT REPORTED Normal NONE [facility] Comment on above: Performed By: #### D AU, UA, UMICAO #### [facility] [address] [place] [address] Sewer Line Repairer: Juan F Dominguez MD Yeast LM Ql (Urine sed) NOT REPORTED Normal NONE [facility] Comment on above: Performed By: #### D AU, UA, UMICAO #### [facility] [address] [place] [address] Sewer Line Repairer: Juan F Dominguez MD Vital Signs Date Time Vital Sign Value Performing Clinician Facility 03-14-2024 08:53-0400 Body temperature 98.2 [degF] DO Sam Cooney Work Phone: [facility] 03-14-2024 08:53-0400 Body weight 71.07 kg DO Overton Hooker Work Phone: [facility] 03-14-2024 08:53-0400 Diastolic blood pressure 48 mm[Hg] DO Overton Hooker Work Phone: [facility] 03-14-2024 08:53-0400 Heart rate 78 /min DO Overton Hooker Work Phone: [facility] 03-14-2024 08:53-0400 Respiratory rate 18 /min DO Sam Hooker Work Phone: [facility] 03-14-2024 08:53-0400 SaO2% (BldA) [Mass fraction] 95 % DO Overton Hooker Work Phone: [facility] 03-14-2024 08:53-0400 Systolic blood pressure 84 mm[Hg] DO Overton Hooker Work Phone: [facility] 03-09-2024 15:11-0400 Body temperature 97.9 [degF] DO Sam Hooker Work Phone: [facility] 03-09-2024 15:11-0400 Diastolic blood pressure 74 mm[Hg] DO Overton Hooker Work Phone: [facility] 03-09-2024 15:11-0400 Heart rate 65 /min DO Overton Hooker Work Phone: [facility] 03-09-2024 15:11-0400 Respiratory rate 16 /min DO Sam Hooker Work Phone: [facility] 03-09-2024 15:11-0400 SaO2% (BldA) [Mass fraction] 97 % DO Overton Hooker Work Phone: [facility] 03-09-2024 15:11-0400 Systolic blood pressure 135 mm[Hg] DO Overton Hooker Work Phone: [facility] 03-09-2024 06:00-0400 Body weight 77.1 kg DO Overton Hooker Work Phone: [facility] 03-07-2024 09:29-0400 Body height 175.26 cm DO Overton Hooker Work Phone: [facility] 03-05-2024 19:10-0400 Body temperature 97.4 [degF] DO Sam Hooker Work Phone: [facility] 03-05-2024 19:10-0400 Diastolic blood pressure 63 mm[Hg] DO Sam Hooker Work Phone: [facility] 03-05-2024 19:10-0400 Heart rate 75 /min DO Sam Hooker Work Phone: [facility] 03-05-2024 19:10-0400 Respiratory rate 21 /min DO Overton Hooker Work Phone: [facility] 03-05-2024 19:10-0400 SaO2% (BldA) [Mass fraction] 98 % DO Sam Hooker Work Phone: [facility] 03-05-2024 19:10-0400 Systolic blood pressure 135 mm[Hg] DO Overton Hooker Work Phone: [facility] 03-05-2024 18:45-0400 Body height 175.26 cm DO Overton Hooker Work Phone: [facility] 03-05-2024 18:45-0400 Body weight 76.2 kg DO Overton Hooker Work Phone: [facility] 03-05-2024 11:31-0400 Diastolic blood pressure 66 mm[Hg] DO Overton Hooker Work Phone: [facility] 03-05-2024 11:31-0400 Systolic blood pressure 82 mm[Hg] DO Overton Hooker Work Phone: [facility] 03-05-2024 11:30-0400 Heart rate 74 /min DO Overton Hooker Work Phone: [facility] 03-05-2024 11:30-0400 Respiratory rate 18 /min DO Sam Hooker Work Phone: [facility] 03-05-2024 11:30-0400 SaO2% (BldA) [Mass fraction] 98 % DO Sam Hooker Work Phone: [facility] 03-03-2024 13:45-0400 Body weight 78.01 kg DO Sam Hooker Work Phone: [facility] 03-03-2024 13:45-0400 Diastolic blood pressure 63 mm[Hg] DO Sam Hooker Work Phone: [facility] 03-03-2024 13:45-0400 Heart rate 71 /min DO Sam Hooker Work Phone: [facility] 03-03-2024 13:45-0400 Respiratory rate 16 /min DO Sam Hooker Work Phone: [facility] 03-03-2024 13:45-0400 SaO2% (BldA) [Mass fraction] 99 % DO Sam Hooker Work Phone: [facility] 03-03-2024 13:45-0400 Systolic blood pressure 112 mm[Hg] DO Sam Hooker Work Phone: [facility] 02-21-2024 14:59-0400 Body height 175.26 cm DO Sam Hooker Work Phone: [facility] 02-21-2024 14:59-0400 Body mass index (BMI) [Ratio] 25.4 kg/m2 DO Sam Hooker Work Phone: [facility] 02-21-2024 14:59-0400 Body temperature 97.7 [degF] DO Sam Hooker Work Phone: [facility] 02-21-2024 14:59-0400 Body weight 78.01 kg DO Sam Hooker Work Phone: [facility] 02-21-2024 14:59-0400 Diastolic blood pressure 58 mm[Hg] DO Sam Hooker Work Phone: [facility] 02-21-2024 14:59-0400 Heart rate 74 /min DO Sam Hooker Work Phone: [facility] 02-21-2024 14:59-0400 Respiratory rate 202 /min DO Sam Hooker Work Phone: [facility] 02-21-2024 14:59-0400 SaO2% (BldA) [Mass fraction] 100 % DO Sam Hooker Work Phone: [facility] 02-21-2024 14:59-0400 Systolic blood pressure 93 mm[Hg] DO Sam Hooker Work Phone: [facility] 12-03-2023 15:25-0400 Blood Pressure Location Trung FERGUSON [facility] 12-03-2023 15:25-0400 Diastolic blood pressure 74 mm[Hg] Trung FERGUSON [facility] 12-03-2023 15:25-0400 Heart rate 76 /min Trung FERGUSON [facility] 12-03-2023 15:25-0400 Respiratory rate 16 /min Trung FERGUSON [facility] 12-03-2023 15:25-0400 Systolic blood pressure 137 mm[Hg] Trung FERGUSON [facility] 10-22-2023 11:54-0500 Body height 175.3 cm Za Hernández MD Work Phone: [facility] 10-22-2023 11:54-0500 Body mass index (BMI) [Ratio] 27.17 kg/m2 Za Hernández MD Work Phone: [facility] 10-22-2023 11:54-0500 Body weight 83.46 kg Za Hernández MD Work Phone: [facility] 10-22-2023 11:54-0500 Diastolic blood pressure 72 mm[Hg] Za Hernández MD Work Phone: [facility] 10-22-2023 11:54-0500 Heart rate 56 /min Za Hernández MD Work Phone: [facility] 10-22-2023 11:54-0500 Systolic blood pressure 124 mm[Hg] Za Hernández MD Work Phone: [facility] 08-28-2023 12:20-0500 Diastolic blood pressure 78 mm[Hg] Ryan Cobb MD Work Phone: [facility] 08-28-2023 12:20-0500 Heart rate 60 /min Ryan Cobb MD Work Phone: [facility] 08-28-2023 12:20-0500 Respiratory rate 14 /min Ryan Cobb MD Work Phone: [facility] 08-28-2023 12:20-0500 SaO2% (BldA) [Mass fraction] 98 % Ryan Cobb MD Work Phone: [facility] 08-28-2023 12:20-0500 Systolic blood pressure 137 mm[Hg] Ryan Cobb MD Work Phone: [facility] 08-22-2023 08:48-0500 Body height 175.3 cm Ryan Cobb MD Work Phone: [facility] 08-22-2023 08:48-0500 Body mass index (BMI) [Ratio] 25.84 kg/m2 Ryan Cobb MD Work Phone: [facility] 08-22-2023 08:48-0500 Body temperature 96.01 [degF] Ryan Cobb MD Work Phone: [facility] 08-22-2023 08:48-0500 Body weight 79.38 kg Ryan Cobb MD Work Phone: [facility] 08-22-2023 08:48-0500 Diastolic blood pressure 79 mm[Hg] Ryan Cobb MD Work Phone: [facility] 08-22-2023 08:48-0500 Heart rate 60 /min Ryan Cobb MD Work Phone: [facility] 08-22-2023 08:48-0500 Respiratory rate 16 /min Ryan Cobb MD Work Phone: [facility] 08-22-2023 08:48-0500 SaO2% (BldA) [Mass fraction] 96 % Ryan Cobb MD Work Phone: [facility] 08-22-2023 08:48-0500 Systolic blood pressure 151 mm[Hg] Ryan Cobb MD Work Phone: [facility] 07-09-2023 11:04-0400 Diastolic blood pressure 78 mm[Hg] Trung FERGUSON [facility] 07-09-2023 11:04-0400 Heart rate 68 /min Trung FERGUSON [facility] 07-09-2023 11:04-0400 Respiratory rate 16 /min Trung FERGUSON [facility] 07-09-2023 11:04-0400 Systolic blood pressure 132 mm[Hg] Trung FERGUSON [facility] 06-11-2023 11:27-0400 Diastolic blood pressure 60 mm[Hg] Sam Cooney Work Phone: [facility] DO Work Phone: 06-11-2023 11:27-0400 Systolic blood pressure 118 mm[Hg] Sam Gideon Cooney Work Phone: [facility] [facility] DO Work Phone: 06-11-2023 10:51-0400 Body height 175.26 cm Sam Meneses Hooker Work Phone: [facility] DO Work Phone: 06-11-2023 10:51-0400 Body mass index (BMI) [Ratio] 26.29 kg/m2 Sam Meneses Hooker Work Phone: [facility] [place] [facility] DO Work Phone: 06-11-2023 10:51-0400 Body surface area Derived from formula 1.97 m2 Sam Meneses Hooker Work Phone: [facility] DO Work Phone: 06-11-2023 10:51-0400 Body weight 80.74 kg [place] Gideon Cooney Work Phone: [facility] [place] [facility] DO Work Phone: 06-11-2023 10:51-0400 Diastolic blood pressure 76 mm[Hg] Sam Meneses Hooker Work Phone: [facility] DO Work Phone: 06-11-2023 10:51-0400 Heart rate 66 /min Sam Gideon Cooney Work Phone: [facility] DO Work Phone: 06-11-2023 10:51-0400 Systolic blood pressure 128 mm[Hg] Sam Meneses Hooker Work Phone: [facility] DO Work Phone: 04-03-2023 09:05-0400 Blood Pressure Location CHARLOTTE RITESH [facility] 04-03-2023 09:05-0400 Diastolic blood pressure 56 mm[Hg] CHARLOTTE RITESH [facility] 04-03-2023 09:05-0400 Heart rate 58 /min CHARLOTTE RITESH [facility] 04-03-2023 09:05-0400 Respiratory rate 16 /min CHARLOTTE RITESH [facility] 04-03-2023 09:05-0400 Systolic blood pressure 96 mm[Hg] CHARLOTTE RITESH [facility] 02-26-2023 12:14-0400 Diastolic blood pressure 40 mm[Hg] Sam Cooney Work Phone: [facility] [place] [facility] DO Work Phone: 02-26-2023 12:14-0400 Systolic blood pressure 82 mm[Hg] Sam Cooney Work Phone: [facility] DO Work Phone: 02-26-2023 12:14-0400 50 1 Sam Cooney Work Phone: [facility] [facility] DO Work Phone: Comment on above: [facility] 02-26-2023 11:37-0400 Body height 175.26 cm Sam Cooney Work Phone: [facility] [facility] DO Work Phone: 02-26-2023 11:37-0400 Body mass index (BMI) [Ratio] 25.93 kg/m2 Sam Cooney Work Phone: [facility] [place] [facility] DO Work Phone: 02-26-2023 11:37-0400 Body surface area Derived from formula 1.95 m2 Sam Meneses Hooker Work Phone: [facility] DO Work Phone: 02-26-2023 11:37-0400 Body weight 79.65 kg Sam Meneses Hooker Work Phone: [facility] DO Work Phone: 02-26-2023 11:37-0400 Diastolic blood pressure 52 mm[Hg] Sam Meneses Hooker Work Phone: [facility] [facility] DO Work Phone: 02-26-2023 11:37-0400 Heart rate 56 /min Sam Meneses Hooker Work Phone: [facility] DO Work Phone: 02-26-2023 11:37-0400 Systolic blood pressure 98 mm[Hg] Sam Meneses Hooker Work Phone: [facility] DO Work Phone: 01-23-2023 14:12-0400 Blood Pressure Location CHARLOTTE RITESH [facility] 01-23-2023 14:12-0400 Diastolic blood pressure 76 mm[Hg] CHARLOTTE RITESH [facility] 01-23-2023 14:12-0400 Heart rate 78 /min CHARLOTTE RITESH [facility] 01-23-2023 14:12-0400 Respiratory rate 16 /min CHARLOTTE RITESH [facility] 01-23-2023 14:12-0400 Systolic blood pressure 130 mm[Hg] CHARLOTTE RITESH [facility] 01-01-2023 11:45-0400 Blood Pressure Location Trung FERGUSON [facility] 01-01-2023 11:45-0400 Diastolic blood pressure 88 mm[Hg] Trung FERGUSON [facility] 01-01-2023 11:45-0400 Heart rate 67 /min Trung FERGUSON [facility] 01-01-2023 11:45-0400 Respiratory rate 16 /min Trung FERGUSON [facility] 01-01-2023 11:45-0400 Systolic blood pressure 135 mm[Hg] Trung FERGUSON [facility] 11-03-2022 13:02-0500 Blood Pressure Location Trung FERGUSON [facility] 11-03-2022 13:02-0500 Diastolic blood pressure 74 mm[Hg] Trung FERGUSON [facility] 11-03-2022 13:02-0500 Heart rate 68 /min Trung FERGUSON [facility] 11-03-2022 13:02-0500 Respiratory rate 16 /min Trung FERGUSON [facility] 11-03-2022 13:02-0500 Systolic blood pressure 128 mm[Hg] Trung FERGUSON [facility] 10-09-2022 13:22-0500 Diastolic blood pressure 74 mm[Hg] Sam E Hooker Work Phone: [facility] DO Work Phone: 10-09-2022 13:22-0500 Systolic blood pressure 136 mm[Hg] Overton Gideon Hooker Work Phone: [facility] [facility] DO Work Phone: 10-09-2022 13:05-0500 Body height 175.26 cm Sam Gideon Eros Work Phone: [facility] [place] [facility] DO Work Phone: 10-09-2022 13:05-0500 Body mass index (BMI) [Ratio] 26.58 kg/m2 Sam Gideon Eros Work Phone: [facility] DO Work Phone: 10-09-2022 13:05-0500 Body surface area Derived from formula 1.98 m2 Sam Meneses Eros Work Phone: [facility] DO Work Phone: 10-09-2022 13:05-0500 Body weight 81.65 kg Sam Gideon Eros Work Phone: [facility] [place] [facility] DO Work Phone: 10-09-2022 13:05-0500 Diastolic blood pressure 72 mm[Hg] Sam Meneses Hooker Work Phone: [facility] DO Work Phone: 10-09-2022 13:05-0500 Heart rate 84 /min Sam Gideon Hooker Work Phone: [facility] DO Work Phone: 10-09-2022 13:05-0500 Systolic blood pressure 142 mm[Hg] Sam Meneses Hooker Work Phone: [facility] DO Work Phone: 10-02-2022 15:48-0500 Body height 175.26 cm Sam Meneses Hooker Work Phone: [facility] DO Work Phone: 10-02-2022 15:48-0500 Body mass index (BMI) [Ratio] 26.43 kg/m2 Sam Meneses Hooker Work Phone: [facility] DO Work Phone: 10-02-2022 15:48-0500 Body surface area Derived from formula 1.97 m2 Sam Meneses Hooker Work Phone: [facility] [facility] DO Work Phone: 10-02-2022 15:48-0500 Body weight 81.19 kg Sam Meneses Hooker Work Phone: [facility] DO Work Phone: 10-02-2022 15:48-0500 Diastolic blood pressure 82 mm[Hg] Sam Meneses Hooker Work Phone: [facility] DO Work Phone: 10-02-2022 15:48-0500 Heart rate 68 /min Sam Meneses Hooker Work Phone: [facility] DO Work Phone: 10-02-2022 15:48-0500 Systolic blood pressure 134 mm[Hg] Sam Meneses Hooker Work Phone: [facility] DO Work Phone: 10-02-2022 11:32-0500 Blood Pressure Location Trung FERGUSON [facility] 10-02-2022 11:32-0500 Diastolic blood pressure 75 mm[Hg] Trung FERGUSON [facility] 10-02-2022 11:32-0500 Heart rate 70 /min Trung FERGUSON [facility] 10-02-2022 11:32-0500 Respiratory rate 16 /min Trung FERGUSON [facility] 10-02-2022 11:32-0500 Systolic blood pressure 134 mm[Hg] Trung FERGUSON [facility] 09-11-2022 13:07-0500 Diastolic blood pressure 84 mm[Hg] Sam Cooney Work Phone: [facility] DO Work Phone: 09-11-2022 13:07-0500 Diastolic blood pressure 92 mm[Hg] Sam Meneses Hooker Work Phone: [facility] [facility] DO Work Phone: 09-11-2022 13:07-0500 Systolic blood pressure 144 mm[Hg] Sam Meneses Hooker Work Phone: [facility] DO Work Phone: 09-11-2022 13:07-0500 Systolic blood pressure 148 mm[Hg] Sam Meneses Hooker Work Phone: [facility] DO Work Phone: 09-11-2022 13:00-0500 Body height 175.26 cm Sam Meneses Hooker Work Phone: [facility] [place] [facility] DO Work Phone: 09-11-2022 13:00-0500 Body mass index (BMI) [Ratio] 25.99 kg/m2 Sam Meneses Hooker Work Phone: [facility] DO Work Phone: 09-11-2022 13:00-0500 Body surface area Derived from formula 1.96 m2 Sam Cooney Work Phone: [facility] DO Work Phone: 09-11-2022 13:00-0500 Body weight 79.83 kg Sam Meneses Hooker Work Phone: [facility] DO Work Phone: 09-11-2022 13:00-0500 Heart rate 62 /min Sam Meneses Hooker Work Phone: [facility] DO Work Phone: 08-28-2022 13:16-0500 Body height 175.26 cm Sam Cooney Work Phone: [facility] [facility] DO Work Phone: 08-28-2022 13:16-0500 Body mass index (BMI) [Ratio] 25.84 kg/m2 Sam Cooney Work Phone: [facility] [place] [facility] DO Work Phone: 08-28-2022 13:16-0500 Body surface area Derived from formula 1.95 m2 Sam Meneses Hooker Work Phone: [facility] [facility] DO Work Phone: 08-28-2022 13:16-0500 Body weight 79.38 kg Sam Meneses Hooker Work Phone: [facility] [place] [facility] DO Work Phone: 08-28-2022 13:16-0500 Diastolic blood pressure 94 mm[Hg] Sam Meneses Hooker Work Phone: [facility] [place] [facility] DO Work Phone: 08-28-2022 13:16-0500 Heart rate 88 /min Sam Meneses Hooker Work Phone: [facility] [place] [facility] DO Work Phone: 08-28-2022 13:16-0500 Systolic blood pressure 152 mm[Hg] Sam Meneses Hooker Work Phone: [facility] [facility] DO Work Phone: 06-15-2022 10:12-0400 Body height 175.26 cm Sam Meneses Hooker Work Phone: [facility] [place] [facility] DO Work Phone: 06-15-2022 10:12-0400 Body mass index (BMI) [Ratio] 24.81 kg/m2 Sam Meneses Hooker Work Phone: [facility] [place] [facility] DO Work Phone: 06-15-2022 10:12-0400 Body surface area Derived from formula 1.92 m2 Sam Meneses Hooker Work Phone: [facility] [place] [facility] DO Work Phone: 06-15-2022 10:12-0400 Body weight 76.2 kg Sam Meneses Hooker Work Phone: [facility] [facility] DO Work Phone: 06-15-2022 10:12-0400 Diastolic blood pressure 82 mm[Hg] Sam Meneses Hooker Work Phone: [facility] [place] [facility] DO Work Phone: 06-15-2022 10:12-0400 Heart rate 64 /min Sam Meneses Hooker Work Phone: [facility] [facility] DO Work Phone: 06-15-2022 10:12-0400 Systolic blood pressure 160 mm[Hg] Sam Meneses Hooker Work Phone: [facility] DO Work Phone: 06-15-2022 10:12-0400 4 1 Sam Meneses Hooker Work Phone: [facility] [place] [facility] DO Work Phone: Comment on above: PHQ-9 TS 04-24-2022 11:18-0400 Blood Pressure Location Trung FERGUSON [facility] 04-24-2022 11:18-0400 Diastolic blood pressure 86 mm[Hg] Trung FERGUSON [facility] 04-24-2022 11:18-0400 Heart rate 74 /min Trung FERGUSON [facility] 04-24-2022 11:18-0400 Respiratory rate 16 /min Trung FERGUSON [facility] 04-24-2022 11:18-0400 Systolic blood pressure 134 mm[Hg] Trung FERGUSON [facility] 01-23-2022 12:57-0400 Blood Pressure Location Trung FERGUSON [facility] 01-23-2022 12:57-0400 Diastolic blood pressure 87 mm[Hg] Trung FERGUSON [facility] 01-23-2022 12:57-0400 Heart rate 70 /min Trung FERGUSON [facility] 01-23-2022 12:57-0400 Respiratory rate 16 /min Trung FERGUSON [facility] 01-23-2022 12:57-0400 Systolic blood pressure 139 mm[Hg] Trung FERGUSON [facility] 08-31-2021 13:24-0500 Body height 175.26 cm Sam Cooney Work Phone: [facility] [place] [facility] DO Work Phone: 08-31-2021 13:24-0500 Body mass index (BMI) [Ratio] 27.02 kg/m2 Sam Cooney Work Phone: [facility] [place] [facility] DO Work Phone: 08-31-2021 13:24-0500 Body surface area Derived from formula 1.99 m2 Sam Cooney Work Phone: [facility] [place] [facility] DO Work Phone: 08-31-2021 13:24-0500 Body weight 83.01 kg Sam Cooney Work Phone: [facility] [place] [facility] DO Work Phone: 08-31-2021 13:24-0500 Diastolic blood pressure 88 mm[Hg] Sam Meneses Hooker Work Phone: [facility] [facility] DO Work Phone: 08-31-2021 13:24-0500 Heart rate 74 /min Sam Meneses Hooker Work Phone: [facility] [facility] DO Work Phone: 08-31-2021 13:24-0500 Systolic blood pressure 142 mm[Hg] Sam Meneses Hooker Work Phone: [facility] [facility] DO Work Phone: 08-03-2021 09:57-0500 Body height 175.26 cm Sam Cooney Work Phone: [facility] [facility] DO Work Phone: 08-03-2021 09:57-0500 Body mass index (BMI) [Ratio] 26.29 kg/m2 Sam Cooney Work Phone: [facility] [place] [facility] DO Work Phone: 08-03-2021 09:57-0500 Body surface area Derived from formula 1.97 m2 Sam Cooney Work Phone: [facility] [place] [facility] DO Work Phone: 08-03-2021 09:57-0500 Body weight 80.74 kg Sam Cooney Work Phone: [facility] [place] [facility] DO Work Phone: 08-03-2021 09:57-0500 Diastolic blood pressure 90 mm[Hg] Sam Cooney Work Phone: [facility] [facility] DO Work Phone: 08-03-2021 09:57-0500 Heart rate 66 /min Sam Cooney Work Phone: [facility] DO Work Phone: 08-03-2021 09:57-0500 Systolic blood pressure 170 mm[Hg] Sam Cooney Work Phone: [facility] [facility] DO Work Phone: Encounters Encounter Date Encounter Type Care Provider Facility Start: 06-16-2024 ambulatory Trung Santizo ty:ALLEN [facility] Start: 03-17-2024 End: 03-17-2024 Patient encounter procedure DO Sam Cooney Work Phone: [facility] Start: 03-17-2024 End: 03-17-2024 ambulatory DO Sam Cooney Work Phone: [facility] Work Phone: Start: 03-14-2024 ambulatory Sam Cooney Facility :[facility] Start: 03-14-2024 Registered Recurring DO Sam Cooney Work Phone: [facility] Acute Work Phone: Start: 03-05-2024 End: 03-09-2024 Evaluation and management of inpatient DO Sam Cooney Work Phone: [facility] [place] [facility] Work Phone: Start: 03-05-2024 End: 03-05-2024 Admission to same day surgery center DO Sam Cooney Work Phone: [facility]-CT Scan [facility] [place] Work Phone: Start: 03-05-2024 End: 03-05-2024 ambulatory DO Sam Cooney Work Phone: [facility] Work Phone: Start: 03-03-2024 Registered Recurring DO Sam Cooney Work Phone: [facility] Acute Work Phone: Start: 02-21-2024 End: 02-21-2024 ambulatory DO Sam Cooney Work Phone: [facility] Work Phone: Start: 02-21-2024 End: 02-21-2024 Patient encounter procedure DO Sam Cooney Work Phone: [facility] Ambulatory Work Phone: Start: 02-21-2024 Registered Recurring DO Sam Cooney Work Phone: [facility] Acute Work Phone: Start: 02-11-2024 End: 02-11-2024 ambulatory GRACE VAZQUEZ Not Available Start: 01-15-2024 End: 01-15-2024 ambulatory ROXANNE Jason KIMBERJONATHAN [facility] Start: 12-28-2023 ambulatory SAM Meneses EROS [facility] Start: 12-28-2023 End: 12-29-2023 ambulatory RYAN Ocampo [facility] Start: 12-28-2023 End: 12-28-2023 Subsequent hospital visit by physician Fatemeh [id number] [facility] Comment on above: Atrial fibrillation, unspecified type (CMS/HCC) Start: 12-03-2023 End: 12-04-2023 ambulatory Trung FERGUSON Facility:[facility] [place] Start: 12-03-2023 End: 12-03-2023 Patient encounter procedure Trung FERGUSON [facility] Start: 11-20-2023 ambulatory GUNNAR Leonard cility:[id number] Start: 11-07-2023 End: 11-07-2023 ambulatory CAMILA ZEPEDA MD Facility:[id number] Start: 11-06-2023 Chart abstracting Kylee Arreguin DPM Work Phone: [facility] Start: 10-22-2023 End: 10-22-2023 ambulatory [facility] Start: 10-22-2023 End: 10-22-2023 Encounter for preprocedural cardiovascular examination [facility] Start: 10-22-2023 End: 10-22-2023 Office outpatient visit 25 minutes Za Hernández MD Work Phone: [facility] Comment on above: Unspecified mood (af fective) disorder (CMS/HCC) (Primary Dx); Paroxysmal atrial fibrillation (CMS/HCC); Former smoker; Encounter for pre-operative cardiovascular clearance; Presence of Watchman left atrial appendage closure device; Paroxysmal atrial fibrillation with RVR (CMS/HCC); Mixed hyperlipidemia; Primary hypertension; Pain in joint of left shoulder Start: 10-22-2023 End: 10-22-2023 Patient encounter status Za Hernández MD Work Phone: [facility] Work Phone: Start: 09-10-2023 End: 09-10-2023 ambulatory DO Sam Cooney Work Phone: [facility] Work Phone: Start: 09-10-2023 End: 09-10-2023 Patient encounter procedure DO Sam Cooney Work Phone: [facility]-Pacemaker Check Start: 08-28-2023 End: 08-28-2023 Subsequent hospital visit by physician Ryan Cobb MD Work Phone: [facility] Comment on above: Atrial fibrillation (CMS/HCC) (Primary Dx); Chronic atrial fibrillation, unspecified (CMS/HCC); Presence of Watchman left atrial appendage closure device Start: 08-24-2023 Evaluation and manag ement of inpatient [facility] Start: 08-22-2023 End: 08-22-2023 ambulatory [facility] Start: 08-22-2023 End: 08-22-2023 Office outpatient new 45 minutes Ryan Cobb MD Work Phone: [facility] Comment on above: Paroxysmal atrial fi brillation (CMS/HCC) (Primary Dx) Start: 08-13-2023 End: 08-13-2023 ambulatory KYLEE ARREGUIN Not Available Start: 08-09-2023 End: 08-09-2023 Patient encounter procedure DO Sam Cooney Work Phone: [facility]-Pacemaker Check Start: 08-09-2023 End: 08-09-2023 ambulatory DO Sam Cooney Work Phone: [facility] Work Phone: Start: 07-31-2023 End: 08-01-2023 ambulatory PURNIMA DAVIDSON JR Facility:[facility] Start: 07-31-2023 Encounter for other preprocedural examination PURNIMA DAVIDSON JR [facility] Start: 07-31-2023 End: 08-01-2023 ambulatory SHERLEY PAYSTRUP Not Available Start: 07-09-2023 End: 07-10-2023 ambulatory Trung FERGUSON Facility:[facility] Start: 07-09-2023 End: 07-09-2023 ambulatory Sam Cooney Facility:[facility] Start: 07-09-2023 End: 07-09-2023 Patient encounter procedure Trung Frost MARTY [facility] [place] Start: 06-11-2023 Office outpatient vi sit 25 minutes Sam Cooney Work Phone: [facility] DO Work Phone: Start: 06-11-2023 ambulatory ZA HERNÁNDEZ Facility:[id number] Start: 06-07-[address] Sam Cooney Facility:[id number] Start: 06-07-2023 End: 06-07-2023 Patient encounter procedure DO Sam Cooney Work Phone: [facility]-Pacemaker Check Start: 06-07-2023 End: 06-07-2023 ambulatory DO Sam Cooney Work Phone: [facility] Work Phone: Start: 05-08-[address] Sam Cooney Facility:[id number] Start: 05-07-2023 End: 05-07-2023 Patient encounter procedure DO Sam Cooney Work Phone: [facility]-Pacemaker Check Start: 05-07-2023 End: 05-07-2023 ambulatory DO Sam Hooker Work Phone: [facility] Work Phone: Start: 04-03-2023 End: 04-04-2023 ambulatory CHARLOTTE BAKER Facility:[facility] [place] Start: 04-03-2023 End: 04-03-2023 Patient encounter procedure [facility] BAKER [facility] Start: 02-26-2023 ambulatory Ms. Loulou Arreguin Facility: Start: 02-26-2023 Office outpatient vi sit 25 minutes Sam Cooney Work Phone: [facility] [place] [facility] DO Work Phone: Start: 02-26-2023 Patient encounter procedure Sam Cooney Work Phone: [facility] DO Work Phone: Start: 01-23-2023 End: 01-24-2023 ambulatory DO Sam Cooney Work Phone: [facility] Work Phone: Start: 01-23-2023 End: 01-23-2023 Patient encounter procedure CHARLOTTE BAKER [facility] Start: 01-22-2023 End: 01-22-2023 Patient encounter procedure DO Overton Hooker Work Phone: [facility]-Pacemaker Check Start: 01-22-2023 End: 01-22-2023 ambulatory DO Sam Cooney Work Phone: [facility] Work Phone: Start: 01-01-2023 End: 01-02-2023 ambulatory Trung FERGUSON Facility:[facility] Start: 01-01-2023 End: 01-01-2023 Patient encounter procedure Trung FERGUSON [facility] Start: 12-08-[address] Sam Cooney Facility:[id number] Start: 12-08-2022 End: 12-08-2022 ambulatory DO Sam Cooney Work Phone: [facility] Work Phone: Start: 12-08-2022 End: 12-08-2022 Patient encounter procedure DO Sam Cooney Work Phone: [facility] Start: 11-17-2022 Patient encounter procedure Sam Cooney Work Phone: [facility] DO Work Phone: Start: 11-06-2022 End: 11-06-2022 Patient encounter procedure Trung FERGUSON [facility] Start: 11-03-2022 End: 01-10-[address] SAM COONEY Facility: Start: 11-03-2022 End: 11-03-2022 Patient encounter procedure Trung FERGUSON [facility] Start: 10-17-2022 End: 10-17-2022 Lab Drop off CHARLOTTE BAKER [facility] Start: 10-17-2022 End: 10-17-2022 Patient encounter procedure CHARLOTTE BAKER [facility] Start: 10-09-2022 ambulatory Ms. Jasso Emy Arreguin Facility: Start: 10-09-2022 FUV, Provider: Loulou Myles, Status: Pen, Time: 12:30 PM Sam Cooney Work Phone: [facility] DO Work Phone: Start: 10-09-2022 Office outpatient vi sit 15 minutes Sam Cooney Work Phone: [facility] DO Work Phone: Start: 10-09-2022 Patient encounter procedure Sam Cooney Work Phone: [facility] [facility] [facility] DO Work Phone: Start: 10-02-2022 ambulatory ZA HERNÁNDEZ Facility:1 9836 Start: 10-02-2022 Office outpatient vi sit 25 minutes Overton E Hooker Work Phone: [facility] 250 DO Work Phone: Start: 10-02-2022 End: 10-02-2022 Patient encounter procedure Trung FERGUSON [facility] Start: 09-19-2022 Rx Renewal Overton E Brist ol Work Phone: [facility] 250 DO Work Phone: Start: 09-11-2022 Office outpatient vi sit 10 minutes Overton E Hooker Work Phone: [facility] 250 DO Work Phone: Start: 09-11-2022 ambulatory ZA HERNÁNDEZ Facility:1 9836 Start: 09-04-2022 End: 09-04-2022 Patient encounter procedure Trung FERGUSON [facility] Start: 09-02-2022 Encounter for preprocedural laboratory examination DR TRUNG FERGUSON . [facility] Start: 08-31-2022 End: 09-01-[address] TRUNG FERGUSON . Facility:H1 Start: 08-29-2022 End: 08-30-[address] TRUNG FERGUSON . Facility:H1 Start: 08-29-2022 End: 08-30-2022 Encounter for preprocedural laboratory examination DR TRUNG FERGUSON . Facility:H1 Start: 08-28-2022 Office outpatient vi sit 25 minutes Overton E Hooker Work Phone: [facility] 250 DO Work Phone: Start: 08-25-2022 End: 08-26-[address] SAM COONEY Facility:H1 Start: 08-22-2022 End: 08-23-[address] TRUNG FERGUSON . Facility:H1 Start: 08-14-2022 Telephone encounter Sam sotomayorl Work Phone: [facility] 250 DO Work Phone: Start: 07-20-[address] TRUNG FERGUSON . Fac ility:H1 Start: 07-14-2022 End: 07-15-[address] TRUNG FERGUSON . Facility:H1 Start: 06-30-2022 Encounter for preprocedural cardiovascular examination DR TRUNG FERGUSON . [facility] Start: 06-30-2022 Encounter for preprocedural laboratory examination DR TRUNG FERGUSON . [facility] Start: 06-30-2022 End: 07-01-[address] TRUNG FERGUSON . Facility:H1 Start: 06-28-2022 End: 06-29-[address] TRUNG FERGUSON . Facility:H1 Start: 06-28-2022 End: 06-29-2022 Encounter for preprocedural cardiovascular examination DR TRUNG FERGUSON . Facility:H1 Start: 06-15-2022 Office outpatient vi sit 15 minutes Sam Cooney Work Phone: [facility] 250 DO Work Phone: Start: 06-15-2022 Patient encounter procedure Sam Cooney Work Phone: [facility] 250 DO Work Phone: Start: 04-24-2022 End: 05-10-2022 Pre-admission assessment Trung FERGUSON [facility] Start: 04-24-2022 End: 04-24-2022 Patient encounter procedure Trung FERGUSON [facility] Start: 04-12-2022 Telephone encounter Sam E B ristol Work Phone: [facility] 250 DO Work Phone: Start: 04-08-2022 End: 04-08-[address] CONCHITA ARREGUIN Facility:H1 Start: 02-17-2022 End: 04-05-[address] SAM COONEY Facility:H1 Start: 01-23-2022 End: 01-23-2022 Patient encounter procedure Trung FERGUSON [facility] Start: 08-31-2021 Office outpatient vi sit 15 minutes Sam Cooney Work Phone: [facility] 250 DO Work Phone: Start: 02-07-2021 End: 02-07-2021 Patient encounter procedure Sam Cooney Work Phone: -[facility] [place] Start: 01-07-2021 End: 01-07-2021 Patient encounter procedure Sam Cooney Work Phone: -Pacemaker Check Start: 10-13-2020 End: 10-14-2020 Patient encounter procedure ISRAR UL [facility] Start: 10-13-2020 End: 10-13-2020 Subsequent hospital visit by physician Sam Cooney [facility] Start: 10-08-2020 End: 10-08-2020 Patient encounter procedure Sam Cooney -Pacemaker Check Start: 2020 End: 2020 Patient encounter procedure Sam Cooney -[facility] [place] Start: 09-15-2020 End: 09-15-2020 Patient encounter procedure Sam Cooney -CT [address] Start: 07-07-2020 End: 07-07-2020 Patient encounter procedure Sam Cooney -Pacemaker Check Start: 02-04-2020 End: 02-07-2020 Patient encounter procedure ISRAR UL [facility] Start: 02-04-2020 End: 02-06-2020 Subsequent hospital visit by physician Landy Singh [address] [facility] [address] Scan Comment on above: 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 Y Number of units to transfuse now? 2 Result Comment: PERF ORMED BY: [facility] [address] [place] [address] PATHOLOGIST PIPELINE TECHNICIAN OTTO HARLEY M.D. Start: 03-05-2024 Stool Occult Blood (AMY) DO Overton Eros Work Phone: Start: 03-05-2024 Plain chest [...] 2d w/wo m-mode rec f-up/lmtd Lucas Pearce RADIOLOGIC TECHNOLOGY TEACHER-REGULATORY MANAGER Work Phone: Start: 08-28-2023 Ecg routine ecg w/le ast 12 lds trcg only w/o i&r Lucas Pearce RADIOLOGIC TECHNOLOGY TEACHER-REGULATORY MANAGER Work Phone: Start: 08-22-2023 Creatinine [Mass/vol ume] [...] prostatectomy Trung FERGUSON Start: 01-24-2022 Cystoscopy Trung CHASE LALOSerina Start: 10-13-2020 Assay of free thyroxine Israr Ul Santos Work Phone: Start: 10-13-2020 Assay of thyroid stimulating hormone tsh Israr Ul Santos Work Phone: Start: 10-13-2020 VITAMIN B12 & FOLATE Is rar Ul Santos Work Phone: Start: 09-15-2020 CT head/brain wo con Re agan Hooker Start: 02-04-2020 Ct head/brain w/o co ntrast [...] EVAL AND TREAT LESTER CHIRRI Start: 12-22-2019 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 HELPER EVAL AND TREAT GRAYSON L CHIRRI Start: [...] DTaP/Tdap/Td Vaccines (2 - Td or Tdap) [facility] Start: 10-13-2024 End: 10-13-2024 Patient encounter procedure 10/13/2024 10:30 AM EST Office Visit [facility] [address] [place] [address] Za Hernández MD [address] [place] [address] [address] [place] [address] [facility] Start: 07-31-2024 Thyroid stimulating hormone measurement TSH Level [facility] Start: 04-21-2024 End: 04-21-2024 Patient encounter procedure 04/21/2024 10:30 AM EDT Office Visit [place] [address] [place] [address] Loulou Arreguin, RADIOLOGIC TECHNOLOGY TEACHER-REGULATORY MANAGER [address] [place] [address] [facility] Start: 03-15-2024 [facility] Start: 03-14-2024 End: 03-14-2024 [facility] Start: 03-13-2024 End: 03-13-2024 [facility] Start: 03-12-2024 [facility] Start: 03-11-2024 [facility] Start: 03-10-2024 [facility] Start: 03-09-2024 End: 03-09-2024 [facility] Start: 03-08-2024 [facility] Start: 03-07-2024 End: 03-07-2024 [facility] Start: 03-06-2024 End: 03-07-2024 [facility] Start: 03-05-2024 Referral to occupational therapist [facility] Start: 03-05-2024 Physical therapy procedure [facility] Start: 03-05-2024 Hospital admission [facility] Start: 03-05-2024 Referral to oncologist [facility] Start: 03-05-2024 End: 03-06-2024 [facility] Start: 03-03-2024 [facility] Start: 11-20-2023 End: 11-20-2023 Patient encounter procedure 11/20/2023 7:00 AM EST Procedure Visit [place] [address] [place] [address] [facility] Start: 11-06-2023 End: 11-06-2023 Patient encounter procedure 11/06/2023 11:30 AM EST Procedure Visit [facility] [address] [place] [address] Kylee Arreguin DPM [address] [place] [address] [facility] Start: 10-22-2023 End: 10-22-2024 Comprehensive metabolic 2000 panel - Serum or Plasma Comprehensive Metabolic Panel Lab Routine Paroxysmal atrial fibrillation (CMS/HCC) Expected: 10/22/2023 (Approximate), Expires: 10/22/2024 [facility] Service Area Work Phone: Comment on above: Expected: 10/22/2023 (Approximate), Expires: 10/22/2024 Start: 10-22-2023 End: 10-22-2024 Lipid 1996 panel - Serum or Plasma Lipid Panel Lab Routine Paroxysmal atrial fibrillation (CMS/HCC) Unspecified mood (affective) disorder (CMS/HCC) Former smoker Encounter for pre-operative cardiovascular clearance Mixed hyperlipidemia Expected: 10/22/2023 (Approximate), Expires: 10/22/2024 [facility] Work Phone: Comment on above: Expected: 10/22/2023 (Approximate), Expires: 10/22/2024 Start: 09-20-2023 End: 09-20-2023 Patient encounter procedure 09/20/2023 10:30 AM EST Office Visit [facility] [address] [facility] [address] [place] [address] Za Hernández MD [address] [facility] [address] [place] [address] [facility] Start: 08-28-2023 End: 08-28-2023 Admission to same day surgery center 08/28/2023 11:30 AM EST - 08/28/2023 1:30 PM EST Surgery [facility] [address] [address] [place] [address] [place] [address] Left Atrial Appendage Closure [93418 (CPT )] [facility] Comment on above: Left Atrial Appendag e Closure [89014 (CPT )] Start: 08-28-2023 Subsequent hospital visit by physician 08/28/2023 11:30 AM EST Hospital Encounter [facility] [address] [address] [place] [address] [place] [address] Atrial fibrillation (CMS/HCC) [facility] Comment on above: Atrial fibrillation (CMS/HCC) Start: 08-27-2023 End: 08-27-2023 Patient encounter procedure 08/27/2023 9:30 AM EST Office Visit [facility] [address] [facility] [address] [place] [address] Za Hernández MD [address] [place] [address] [address] [place] [address] [facility] Start: 06-11-2023 FUV, Provider: Za Hernández, Status: Pen, Time: 10:45 AM FUV, Provider: Za Hernández, Status: Pen, Time: 10:45 AM [facility] 250 DO Work Phone: Start: 05-25-2023 COVID-19 Vaccine () COVID-19 Vaccine ( season) [facility] Start: 05-25-2023 Influenza vaccination Influenza Vacc ine (#1) [facility] Start: 02-26-2023 FUV, Provider: Za Hernández, Status: Pen, Time: 11:15 AM FUV, Provider: Za Hernández, Status: Pen, Time: 11:15 AM -[facility] 250 DO Work Phone: Start: 10-09-2022 FUV, Provider: Loulou Myles, Status: Pen, Time: 12:30 PM FUV, Provider: Loulou Myles, Status: Pen, Time: 12:30 PM -[facility] 250 DO Work Phone: Start: 10-02-2022 FUV, Provider: Za Hernández, Status: Pen, Time: 3:15 PM FUV, Provider: Za Hernández, Status: Pen, Time: 3:15 PM -[facility] 250 DO Work Phone: Start: 09-21-2022 FUV, Provider: Za Hernández, Status: Pen, Time: 9:45 AM FUV, Provider: Za Hernández, Status: Pen, Time: 9:45 AM -[facility] 250 DO Work Phone: Start: 09-11-2022 NURSEVST, Provider: JACQUELINE GONZALEZ SUPER[employer] [place] 1,[id number], Status: Pen, Time: 1:00 PM NURSEVST, Provider: JACQUELINE GONZALEZ [employer] [place] 1,[id number], Status: Pen, Time: 1:00 PM -[facility] 250 DO Work Phone: Start: 08-28-2022 FUV, Provider: Za Hernández, Status: Pen, Time: 12:45 PM FUV, Provider: Za Hernández, Status: Pen, Time: 12:45 PM -[facility] 250 DO Work Phone: Start: 08-10-2022 BPCHECK, Provider: Bri GONZALEZ [employer] [place] 1,[id number], Status: Pen, Time: 10:00 AM BPCHECK, Provider: JACQUELINE HEADLEY03 [employer] [place] 1,[id number], Status: Pen, Time: 10:00 AM [facility] 250 DO Work Phone: Start: 08-01-2022 FUV, Provider: Erick Wise, Status: Pen, Time: 9:00 AM FUV, Provider: Erick Wise, Status: Pen, Time: 9:00 AM [facility] 250 DO Work Phone: Start: 06-15-2022 FUV, Provider: Za Hernández, Status: Pen, Time: 9:45 AM FUV, Provider: Za Hernández, Status: Pen, Time: 9:45 AM [facility] 250 DO Work Phone: Start: 10-03-2021 FUV, Provider: Loulou Myles, Status: Pen, Time: 10:00 AM FUV, Provider: Loulou Myles, Status: Pen, Time: 10:00 AM [facility] 250 DO Work Phone: Start: 10-03-2021 STRESS NUC, Provider : [place] HHVI NUCLEAR 01,[id number], Status: Pen, Time: 8:00 AM STRESS NUC, Provider: [place] [facility]VI NUCLEAR 01,[id number], Status: Pen, Time: 8:00 AM [facility] 250 DO Work Phone: Start: 04-13-2021 End: 04-13-2021 Virtual Visit 04/13/2021 Virtual Visit Neurology Shalom Shelton MD [address] [place] [address] [id number] [facility] Start: 01-24-2021 COVID-19 Vaccine (2 - Booster for Christina series) COVID-19 Vaccine (2 - Booster for Christina series) [facility] Start: 12-20-2020 Creatinine measurement Creatinine mo nitoring [place], [place] Start: 12-20-2020 HbA1c (Bld) [Mass fraction] A1C test (Diabetic or Prediabetic) [place], [place] Start: 12-20-2020 Lipid panel Lipid screen [place], [place] Start: 12-20-2020 Potassium monitoring Potassium monit oring [place], [place] Start: 08-11-2020 End: 08-11-2020 Office Visit 08/11/2020 Office Visit Neurology Ul Shalom Graham MD [address] [facility] [address] [place] [address] [phone] [facility] Start: 05-25-2020 Influenza vaccination [place], [place] Start: 12-22-2019 Annual Wellness Visi t (AWV) Annual Wellness Visit (AWV) [place], [place] Start: 12-02-2014 Zoster Vaccines (2 o f 3) Zoster Vaccines (2 of 3) [facility] Start: 2012 Abdominal aortic aneurysm screening Abdominal Aortic Aneurysm (AAA) Screening [facility] Start: 2012 Pneumococcal 65+ yea rs Vaccine (1 of 1 - PPSV23) Pneumococcal 65+ years Vaccine (1 of 1 - PPSV23) [place], [place] Start: 1997 Screening for malign ant neoplasm of colon Colon cancer screen colonoscopy [place], [place] Start: 1997 Shingles Vaccine (1 of 2) Shingles Vaccine (1 of 2) [place], [place] Start: 1969 DTaP/Tdap/Td Vaccine s (1 - Tdap) DTaP/Tdap/Td Vaccines (1 - Tdap) [facility] Start: 1966 DTaP/Tdap/Td vaccine (1 - Tdap) DTaP/Tdap/Td vaccine (1 - Tdap) [place], [place] Start: 1965 Diabetes mellitus screening Diabetes Screening [facility] Start: 1965 Hepatitis C screening Hepatitis C [place] Start: 1947 Abdominal aortic aneurysm screening AAA screen [place], [place] Start: 1947 Hepatitis C screening Hepatitis C [place], [place] Start: 1947 Lipid panel Lipid Panel [facility] Start: 1947 Medicare Annual Wellness Visit Medicare Annual Wellness Visit (AWV) [facility] Start: 1947 Screening for malign ant neoplasm of colon [facility] Angiotensin converti ng enzyme [Enzymatic activity/volume] in Serum or Plasma [facility] End: 08-28-2023 Basic metabolic 2000 panel - Serum or Plasma Basic metabolic panel Lab STAT STAT (Lab) for 1 Occurrences starting 08/28/2023 until 08/28/2023 [facility] Service Area Work Phone: Comment on above: STAT (Lab) for 1 Occ urrences starting 08/28/2023 until 08/28/2023 End: 08-31-2023 Basic metabolic 2000 panel - Serum or Plasma Basic Metabolic Panel Lab Routine Morning draw (Lab) for 3 Occurrences starting 08/29/2023 until 08/31/2023 [facility] Work Phone: Comment on above: Morning draw (Lab) f or 3 Occurrences starting 08/29/2023 until 08/31/2023 End: 08-28-2023 CBC W Auto Differential panel - Blood CBC and Auto Differential Lab STAT STAT (Lab) for 1 Occurrences starting 08/28/2023 until 08/28/2023 [facility] Work Phone: Comment on above: STAT (Lab) for 1 Occ urrences starting 08/28/2023 until 08/28/2023 End: 08-31-2023 CBC W Auto Differential panel - Blood CBC and Auto Differential Lab Routine Morning draw (Lab) for 3 Occurrences starting 08/29/2023 until 08/31/2023 [facility] Work Phone: Comment on above: Morning draw (Lab) f or 3 Occurrences starting 08/29/2023 until 08/31/2023 Comprehensive metabo lic 2000 panel - Serum or Plasma [facility] Comprehensive metabo lic 2000 panel - Serum or Plasma [facility] Comprehensive metabo lic 2000 panel - Serum or Plasma [facility] Copper measurement [facility] End: 08-28-2023 ECG 12 lead [facility] Work Phone: Comment on above: Once for 1 Occurrenc es starting 08/28/2023 until 08/28/2023 As needed until disc ontinued starting 08/28/2023 End: 08-30-2023 ECG 12 lead daily ECG 12 lead daily ECG Routine Daily for 3 Days starting 08/28/2023 until 08/30/2023, 1 completed [facility] Work Phone: Comment on above: Daily for 3 Days sta rting 08/28/2023 until 08/30/2023, 1 completed End: 08-31-2023 Glucose [Mass/volume] in Serum or Plasma POCT glucose Point of Care Testing - Docked Device Routine 4 times daily before meals and at bedtime for 3 Days starting 08/28/2023 until 08/31/2023 [facility] Work Phone: Comment on above: 4 times daily before meals and at bedtime for 3 Days starting 08/28/2023 until 08/31/2023 Hematocrit [Volume Fraction] of Blood [facility] Hemoglobin [Mass/volume] in Blood [facility] Hepatitis B core antibody measurement [facility] Hepatitis B virus surface Ab [Presence] in Serum [facility] End: 08-28-2023 Incentive spirometry Instruct Incentive spirometry Instruct Respiratory Care Routine Once for 1 Occurrences starting 08/28/2023 until 08/28/2023 [facility] Work Phone: Comment on above: Once for 1 Occurrenc es starting 08/28/2023 until 08/28/2023 End: 08-28-2023 Magnesium [Mass/volume] in Serum or Plasma Magnesium Lab STAT STAT (Lab) for 1 Occurrences starting 08/28/2023 until 08/28/2023 [facility] Work Phone: Comment on above: STAT (Lab) for 1 Occ urrences starting 08/28/2023 until 08/28/2023 End: 08-31-2023 Magnesium [Mass/volume] in Serum or Plasma Magnesium Lab Routine Morning draw (Lab) for 3 Occurrences starting 08/29/2023 until 08/31/2023 [facility] Work Phone: Comment on above: Morning draw (Lab) f or 3 Occurrences starting 08/29/2023 until 08/31/2023 Patient referral [facility] Work Phone: End: 08-28-2023 Prothrombin time (PT) Protime-INR Lab STAT STAT (Lab) for 1 Occurrences starting 08/28/2023 until 08/28/2023 [facility] Work Phone: Comment on above: STAT (Lab) for 1 Occ urrences starting 08/28/2023 until 08/28/2023 End: 08-31-2023 Prothrombin time (PT) Protime-INR Lab Routine Morning draw (Lab) for 3 Occurrences starting 08/29/2023 until 08/31/2023 [facility] Work Phone: Comment on above: Morning draw (Lab) f or 3 Occurrences starting 08/29/2023 until 08/31/2023 Rheumatoid factor [Units/volume] in Serum or Plasma [facility] End: 08-28-2023 Structural heart procedure Structural heart procedure Cardiac Cath Routine Atrial fibrillation (CMS/HCC) Once for 1 Occurrences starting 08/28/2023 until 08/28/2023 [facility] Service Area Work Phone: Comment on above: Once for 1 Occurrenc es starting 08/28/2023 until 08/28/2023 Structural heart procedure Structural heart procedure Cardiac Cath Routine Atrial fibrillation (CMS/HCC) 08/28/2023 12:31 PM [facility] Work Phone: End: 08-28-2023 [facility] Work Phone: Comment on above: Once for 1 Occurrenc es starting 08/28/2023 until 08/28/2023 [facility] Immunizations Immunization Date Immunization Notes Care Provider Fa richmond 10-09-2022 Fluzone High-Dose Quadrivalent 0.7 ML Intramuscular Suspension Prefilled Syringe Sam Cooney Work Phone: [facility] 250 DO Work Phone: 10-09-2022 influenza virus vacc ine, unspecified formulation Trung FERGUSON [facility] 10-09-2021 Fluzone High-Dose Quadrivalent 0.7 ML Intramuscular Suspension Prefilled Syringe Overton E Hooker Work Phone: [facility] 250 DO Work Phone: 10-09-2021 influenza virus vacc ine, unspecified formulation Trung FERGUSON [facility] 11-29-2020 Christina COVID-19 Vac cine 0.5 ML Intramuscular Suspension Overton E Hooker Work Phone: [facility] 09-06-2019 influenza virus vacc ine, unspecified formulation Trung [employer] [facility] 09-06-2019 influenza, high dose seasonal, preservative-free Sam E Hooker Work Phone: [place] [address] DO Work Phone: 06-24-2019 influenza virus vacc ine, unspecified formulation Trung FERGUSON [facility] 06-24-2019 influenza, high dose seasonal, preservative-free Overton E Hooker Work Phone: [facility] 250 DO Work Phone: 08-04-2018 influenza virus vacc ine, unspecified formulation Trung [employer] [facility] 08-04-2018 influenza, high dose seasonal, preservative-free Overton E Hooker Work Phone: [facility] 250 DO Work Phone: 05-25-2018 influenza virus vacc ine, unspecified formulation Trung FERGUSON [facility] 05-25-2018 influenza, seasonal, injectable Sam E Hooker Work Phone: [facility] 250 DO Work Phone: 09-21-2017 influenza virus vacc ine, unspecified formulation Trung FERGUSON [facility] 09-21-2017 Seasonal trivalent influenza vaccine, adjuvanted, preservative free Overton E Hooker Work Phone: [facility] 250 DO Work Phone: 09-24-2016 pneumococcal polysaccharide vaccine, 23 valent Overton E Hooker Work Phone: [facility] 10-19-2015 pneumococcal conjuga te vaccine, 13 valent Sam E Hooker Work Phone: [facility] 07-12-2015 pneumococcal polysaccharide vaccine, 23 valent Overton E Hooker Work Phone: [facility] 2014 zoster vaccine, live Sam E Hooker Work Phone: [facility] 08-08-2011 influenza virus vacc ine, unspecified formulation Trung FERGUSON [facility] 08-08-2011 influenza, seasonal, injectable Overton E Hooker Work Phone: [facility] 250 DO Work Phone: 07-14-2009 influenza virus vacc ine, whole virus Overton E Hooker Work Phone: [facility] 250 DO Work Phone: 07-14-2009 influenza, whole Trung LACI ERS [facility] Payers Date Payer Category Payer Self-pay [id number] 2022 Medicare [id number] 2022 Unknown 2019 Medicare MEDICARE RAILROA D MEDICARE xxxxxxxxxxx 2019-Present [phone] [place] [address] xxxxxxxxxxx [id number] 2019 Unknown [employer] MEDICARE SUPP xxxxxx-xx 2019-Present [phone] ATTN INDIVIDUAL CLAIMS [address] [place] [address] xxxxxx-xx [id number] 2019 Unknown [id number] 2012 Medicare [id number] 1959 Medicare [id number] 1959 Medicare [id number] 1959 Unknown [id number] 1947 Unknown [id number] 1947 Unknown [id number] 1947 Unknown [id number] 1947 Unknown [id number] 2.16.840.1.042548.3.579.2 .593 1945 Unknown [id number] 2.16.840.1.489969.3.579.2 .593 1945 Unknown [id number] 2.16.840.1.805083.3.579.2 .593 1945 Unknown [id number] 2.16.840.1.828173.3.579.2 .593 1945 Unknown [id number] 2.16.840.1.492636.3.579.2 .593 1945 Unknown [id number] 2.16.840.1.580278.3.579.2 .593 1945 Unknown [id number] 2.16.840.1.527794.3.579.2 .593 1945 Unknown [id number] 2.16.840.1.099503.3.579.2 .593 1945 Unknown [id number] 2.16.840.1.415047.3.579.2 .593 1945 Unknown [id number] 2.16.840.1.242035.3.579.2 .593 1945 Unknown [id number] 2.16.840.1.800823.3.579.2 .593 1945 Unknown [id number] 2.16.840.1.205125.3.579.2 .356 1945 Unknown [id number] 2.16.840.1.511377.3.579.2 .356 1945 Unknown [id number] 2.16.840.1.314297.3.579.2 .356 1945 Unknown [id number] 2.16.840.1.574517.3.579.2 .356 1945 Unknown [id number] 2.16.840.1.050753.3.579.2 .356 1945 Unknown [id number] 2.16.840.1.908390.3.579.2 .356 1945 Unknown [id number] 2.16.840.1.800522.3.579.2 .356 1945 Unknown [id number] 2.16.840.1.318876.3.579.2 .356 1945 Unknown [id number] 2.16.840.1.161369.3.579.2 .356 1945 Unknown [id number] 2.16.840.1.404987.3.579.2 .1244 1945 Unknown [id number] 2.16.840.1.811853.3.579.2 .159 1945 Unknown [id number] 2.16.840.1.300370.3.579.2 .159 1945 Unknown [id number] 2.16.840.1.235348.3.579.2 .727 1945 Unknown [id number] 2.16.840.1.009145.3.579.2 .727 1945 Unknown [id number] 2.16.840.1.821677.3.579.2 .727 1945 Unknown [id number] 2.16.840.1.057440.3.579.2 .727 1945 Unknown [id number] 2.16.840.1.361988.3.579.2 .727 1945 Unknown [id number] 2.16.840.1.929892.3.579.2 .727 1945 Unknown [id number] 2.16.840.1.995820.3.579.2 .1246 1945 Unknown [id number] 2.16.840.1.895894.3.579.2 .1246 1945 Unknown [id number] 2.16.840.1.192999.3.579.2 .1286 1945 Unknown [id number] 2.16.840.1.829534.3.579.2 .1286 1945 Unknown [id number] 2.16.840.1.853058.3.579.2 .1259 1945 Unknown [id number] 2.16.840.1.503083.3.579.2 .1259 1945 Unknown [id number] 2.16.840.1.297212.3.579.2 .1259 1945 Unknown [id number] 2.16.840.1.387658.3.579.2 .1245 1945 Unknown [id number] 2.16.840.1.150441.3.579.2 .1245 Private Health Insurance Unknown [id number] 2.16.840.1.893519.3.579.2 .531 Unknown [id number] 2.16.840.1.016961.3.579.2 .531 Unknown [id number] 2.16.840.1.804675.3.579.2 .531 Unknown [id number] 2.16.840.1.464573.3.579.2 .531 Unknown [id number] 2.16.840.1.350795.3.579.2 .531 Unknown [id number] 2.16.840.1.407359.3.579.2 .531 Unknown [id number] 2.16.840.1.385342.3.579.2 .531 Unknown [id number] 2.16.840.1.855164.3.579.2 .531 Social History Date Type Detail Facility Start: 02-04-2020 End: 03-05-2024 Tobacco smoking status LAIS Former smoker [facility] Start: 1945 [facility] Assigned At [facility] Start: 1945 Sex Assigned At Male [facility] Start: 10-13-2020 End: 10-22-2023 Tobacco use and exposure [facility] [employer] [place] Start: 08-12-2023 End: 12-28-2023 Exposure to SARS-CoV-2 (event) Not sure [facility], [place] Start: 06-15-2022 End: 08-22-2023 Occasional caffeine consumption Occasional caffeine consumption [facility] Comment on above: Quit ; Tea; Start: 08-29-2021 End: 12-03-2023 Tobacco smoking status Never smoked tobacco (finding) [facility] Tobacco smoking status Never [facility] Start: 06-15-2022 End: 08-22-2023 Sex Assigned At Male [facility] End: 09-24-1959 History of tobacco use Current smoker [facility] Work Phone: End: 09-24-1959 History of tobacco use Cigarette Smoker [facility] Work Phone: Start: 08-22-2023 Alcohol intake Ex-drinker (finding) [facility] Work Phone: Start: 08-13-2023 End: 10-22-2023 Alcohol intake Lifetime non-drinker (finding) [facility] Work Phone: Medical Equipment Procedure Code Equipment Code Equipment Origin al Text Equipment Identifier Dates ()[id number] [id number] FDA Start: 04-07-2020 System, Access, Fxd Dbl Curve, Watchman - [id number] Start: 08-28-2023 Device, Closure, 27mm Watchman Flx Laac - [id number] Start: 08-28-2023 Goals Date Patient Goal Desired Activity /State Functional Status Date Assessment Result Facility 03-09-2024 Functional status Patient at Baseline [facility] Work Phone: 03-05-2024 Functional status Patient is Pro gressing Toward Baseline [facility] Work Phone: 12-03-2023 Functional Status N/A [facility] 07-09-2023 Functional Status N/A [facility] 04-03-2023 Functional Status N/A [facility] 01-23-2023 Functional Status N/A [facility] 01-01-2023 Functional Status N/A [facility] 11-03-2022 Functional Status N/A [facility] 10-02-2022 Functional Status N/A [facility] 06-15-2022 PHQ-9 [id number] In Remission (0-4 ) [facility] DO Work Phone: 04-24-2022 Functional Status N/A [facility] Mental Status Date Assessment Result Facility 03-09-2024 Cognitive function Cognitive Sta tus Patient at Baseline [facility] Work Phone: 03-05-2024 Cognitive function Cognitive Sta tus Patient is Progressing Toward Baseline [facility] Work Phone: Clinical Notes 11-23-2019 to 03-10-2024 Note Date & Type Note Facility 03-10-2024 Hospital Discharg e instructions Additional Instructions Advanced Clinical Specialist Fdc to manage care: - Full code - PT/OT eval and treat - Routine vital signs - Mepilex border foam to Coccyx for added protection. Change every 3 days and as needed. - CBC/CMP on Sunday - results to Oncology Dr. Cuevas [facility] Work Phone: 03-09-2024 Discharge summary Note Date/Time March 09, 2024 2:18pm [facility] [address] [place] [address] Discharge Summary Signed Patient: Neil Wilcox MR#: [id number] 0543 : 1945 Acct:[id number] Age/Sex: 78 / M Adm Date: 4 Loc: Room: [address] [place] [address]: Vijay Aguilar MD Copies to: [...] who was in a CAT scan at [facility] getting a bone marrow biopsy when he [...] can be found in the EHR of [facility]. The patient left hospital appropriately in stable [...] pending. 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 [place] Care/Resident Activity: No Activity Restriction Diet: Regular Additional Instructions: Senior Living [facility]dc to manage care: - Full code - [...] 21 DAYS AND 7 DAYS OFF.ADULT MALE AUTH#[id number] losartan 100 mg tablet 100 mg PO [...] Day Facility: ACUTE - Location: [facility] Ordered By: Bertha Cuevas Complete Blood Count Auto Diff (Stat) Timeframe: 1 Day Location: Determined by Patient Ordered By: Bertha Cuevas Complete Blood Count Auto Diff (Stat) Timeframe: 1 Day Facility: ACUTE - Location: [facility] Ordered By: Bertha Cuevas Complete Blood Count [...] Day Facility: ACUTE - Location: [facility] Ordered By: Bertha Cuevas Comprehensive Metabolic Panel (Stat) Timeframe: 1 Day Facility: ACUTE - Location: [facility] Ordered By: Bertha Cuevas Follow Up: Bertha Cuevas MD [[facility] - Physician] - 03/19/24 2:00 pm (Follow-upwith [...] % (Auto) N/A, Lymph % (Auto) N/A, Tyrrell % (Auto) N/A, Eos % (Auto) N/A, Baso % (Auto) N/A, Nucleat RBC Rel Count N/A, Neut # (Auto) N/A, Lymph # (Auto) N/A, Tyrrell # (Auto) N/A, Eos # (Auto) N/A, [...] <Electronically signed by Vijay Aguilar MD> 03/09/24 1539 [facility] Work Phone: 1(775) 205-921606-15-2024 Progress note Author Vijay Aguilar [facility] March 08, 2024 7:44pm Note Date/Time March 08, 2024 7:45 pm [facility] [address] [place] [address] Hospitalist Progress Note Signed Patient: Neil Wilcox MR#: [id number] 0543 : 1945 Acct:[id number] Age/Sex: 78 / M Adm Date: 4 Loc: Room: [address] [place] [address] Type: ADM IN Attending Dr: Vijay Aguilar [...] who was in a CAT scan at [facility] getting a bone marrow biopsy when he [...] <Electronically signed by Vijay Aguilar MD> 03/08/241943 [facility] Work Phone: 1(791) 986-211806-14-2024 Progress note Author Verenice Mario [facility] March 07, 2024 2:50pm Note Date/Time March 07, 2024 2:50 pm [facility] [address] [place] [address] Med Onc/Hem Progress Note Signed Patient: Neil Wilcox MR#: [id number] 0543 : 1945 Acct:[id number] Age/Sex: 78 / M Adm Date: 4 Loc: Room: [address] [place] [address] Type: ADM IN Attending Dr: Roslyn Townsend [...] now progressed. Most recent labs done at [facility] during his evaluation for falls where he [...] from and daughter. He had visited the [employer] after the event for site seen but [...] labs came back high concerning for IGA Ohiopyle monoclonal multiple myeloma with IgA 3828, M [...] % (Auto) 38.8, Lymph % (Auto) 49.0, Tyrrell % (Auto) 1.2, Eos % (Auto) 10.7, Baso % (Auto) 0.3, Nucleat RBC Rel Count 0.5, Neut # (Auto) 0.8 L, Lymph # (Auto) 1.0, Tyrrell # (Auto) 0.0, Eos # (Auto) 0.2, [...] of 2 Cycle Day Next Admin 1 21 No Active Chemotherapy More Active Plan(s) Found Documented By: Verenice Mario MD 03/07/24 1431 Signed By: <Electronically signed by MD Verenice Mario> 03/07/24 1090 [facility] Work Phone: 1(745) 116-962306-14-2024 Progress note Author Roslyn Townsend [facility] March 07, 2024 2:38pm Note Date/Time March 07, 2024 10:0 7am [facility] [address] [place] [address] Hospitalist Progress Note Signed Patient: Neil Wilcox MR#: [id number] 0543 : 1945 Acct:[id number] Age/Sex: 78 / M Adm Date: 4 Loc: 3T Room: [address] [place] [address] Type: ADM IN Attending Dr: Roslyn Townsend DO Copies to: ~ Date of Service: 03/07/2024 Subjective Subjective Narrative: Mr. Wilcox is a 78M recently diagnosed with multiple myeloma with a PMHx of pancytopenia and renal insufficiency who was in a CAT scan at [facility] getting a bone marrow biopsy when he [...] Tablet. PO 03/05/25 14:08 DAILY PRN Constipation Bortezomib 2.5 [...] Code Status: full code <Statement entered by Roslyn Townsend DO - 03/07/24 14:38> Patient was seen [...] <Electronically signed by Roslyn Townsend DO> 03/07/24 1431 [facility] Work Phone: 1(118) 191-706606-14-2024 Progress note Author Roslyn Townsend [facility] March 07, 2024 9:31am Note Date/Time March 06, 2024 11:1 7am [facility] [address] [place] [address] Hospitalist Progress Note Signed Patient: Neil Wilcox MR#: [id number] 0543 : 1945 Acct:[id number] Age/Sex: 78 / M Adm Date: 4 Loc: 3T Room: [address] [place] [address] Type: ADM IN Attending Dr: Roslyn Townsend [...] Acute renal insufficiency - BUN/Cr trending down 21/10.32 - follow CMP DVT ppx: SCDs Diet: [...] signed by Roslyn Townsend DO> 03/07/24 0931 [facility] Work Phone: 1(265) 973-531606-13-2024 [facility] Consult note Author Bertha Cuevas [facility] March 05, 2024 4:49pm Note Date/Time March 05, 2024 4:49 pm [facility] [address] [place] [address] Med Onc/Hem Consult Note Signed Patient: Neil Wilcox MR#: [id number] 0543 : 1945 Acct:[id number] Age/Sex: 78 / M Adm Date: 4 Loc: ER Room: Type: [facility] ER Attending Dr: Copies to: MD Trung [...] now progressed. Most recent labs done at [facility] during his evaluation for falls where he [...] from and daughter. He had visited the [employer] event after the event for site seen [...] labs came back high concerning for IGA Ohiopyle monoclonal multiple myeloma with IgA 3828, M [...] fracture and therefore he is admitted to shelter now for rehab and probably long- term due to his dementia. He is a and was not active in water but he was in [place] and during [place] War. He visited [facility] for the sightseeing but was not during the [facility] [employer] [facility] [employer] event. He has been having multiple falls as well since June 2023. [facility] Medical History (Updated 03/05/24 @ 14:13 by [...] Confirmed 03/05/24] thyroid (pork) 90 mg tablet (Webb Thyroid) 90 mg PO QAM thyroid 02/27/20 [...] % (Auto) N/A, Lymph % (Auto) N/A, Tyrrell % (Auto) N/A, Eos % (Auto) N/A, Baso % (Auto) N/A, Nucleat RBC Rel Count N/A, Neut # (Auto) N/A, Lymph # (Auto) N/A, Tyrrell # (Auto) N/A, Eos # (Auto) N/A, [...] of 1 Cycle Day Next Admin 3 168 No Active Chemotherapy Documented By: Bertha Cuevas MD 03/05/24 1618 Signed By: <Electronically signed by Bertha Cuevas MD> 03/05/24 1647 [facility] Work Phone: 1(172) 203-895506-12-2024 History and physical note Author Roslyn Townsend [facility] March 05, 2024 4:12pm Note Date/Time March 05, 2024 3:45 pm [facility] [address] [place] [address] Hospitalist H&P Signed Patient: Neil Wilcox MR#: [id number] 0543 : 1945 Acct:[id number] Age/Sex: 78 / M Adm Date: 4 Loc: ER Room: Type: [facility] ER Attending Dr: Copies to: Trung Armenta, DO Sam Cooney,DO Roslyn Townsend DO~ HPI DATE OF EXAMINATION: 03/05/24 CHIEF COMPLAINT: Hypotension HISTORY OF PRESENT ILLNESS: Mr. Wilcox is a 78M recently diagnosed with multiple myeloma with a PMHx of pancytopenia and renal insufficiency who was in a CAT scan at [facility] getting a bone marrow biopsy when he [...] or in HPI [facility] Medical History (Updated 03/05/24 @ 14:13 by [...] Confirmed 03/05/24] thyroid (pork) 90 mg tablet (Webb Thyroid) 90 mg PO QAM thyroid 02/27/20 [...] 11:49 Lymph % (Auto) N/A 03/05/24 11:49 Tyrrell % (Auto) N/A 03/05/24 11:49 Eos % (Auto) N/A 03/05/24 11:49 Baso % (Auto) N/A 03/05/24 11:49 Nucleat RBC Rel Count N/A 03/05/24 11:49 Neut # (Auto) N/A 03/05/24 11:49 Lymph # (Auto) N/A 03/05/24 11:49 Tyrrell # (Auto) N/A 03/05/24 11:49 Eos # [...] <Electronically signed by Roslyn Townsend DO> 03/05/24 7983 [facility] Work Phone: 1(491) 183-989406-12-2024 History and physical note Author Roslyn Townsend [facility] March 05, 2024 4:12pm Note Date/Time March 05, 2024 3:45 pm [facility] [address] [place] [address] Hospitalist H&P Signed Patient: Neil Wilcox MR#: [id number] 0543 : 1945 Acct:[id number] Age/Sex: 78 / M Adm Date: 4 Loc: ER Room: Type: [facility] ER Attending Dr: Copies to: Trung Armenta, DO Sam Cooney,DO Roslyn Townsend DO~ HPI DATE OF EXAMINATION: 03/05/24 CHIEF COMPLAINT: Hypotension HISTORY OF PRESENT ILLNESS: Mr. Wilcox is a 78M recently diagnosed with multiple myeloma with a PMHx of pancytopenia and renal insufficiency who was in a CAT scan at [facility] getting a bone marrow biopsy when he [...] or in HPI [facility] Medical History (Updated 03/05/24 @ 14:13 by [...] Confirmed 03/05/24] thyroid (pork) 90 mg tablet (Webb Thyroid) 90 mg PO QAM thyroid 02/27/20 [...] 11:49 Lymph % (Auto) N/A 03/05/24 11:49 Tyrrell % (Auto) N/A 03/05/24 11:49 Eos % (Auto) N/A 03/05/24 11:49 Baso % (Auto) N/A 03/05/24 11:49 Nucleat RBC Rel Count N/A 03/05/24 11:49 Neut # (Auto) N/A 03/05/24 11:49 Lymph # (Auto) N/A 03/05/24 11:49 Tyrrell # (Auto) N/A 03/05/24 11:49 Eos # [...] 4 Documented By: Roslyn Townsend DO 03/05/24 1745 Signed By: <Electronically signed by Roslyn Townsend DO> 03/05/24 5364 [facility] Work Phone: 1(255) 628-769103-11-2024 Hospital Discharge instructions Patient Education 12/03/2023 16:13:12 [...] your health care provider. General instructions Take vogy-ojr-xsaoait and prescription medicines only as told by [...] provider. Document Revised: 05/30/2021 Document Reviewed: 05/30/2021 Elsevier Patient Education 2022 [employer]. Follow Up Care 07/09/2023 11:46:47 With:MARTY BETANCOURT, Trung Frost, URL Address: [facility] [address], [place] [phone] When: Unknown Comments:6 mos (increase med dosage) [facility] 02-27-2024 NoteProcedure Cancelation Documentation Entered On: 11/20/2023 10:21 EST Performed On: 11/20/2023 10:17 EST by Sahra Lizarraga RN Procedure Cancelation Documentation Surgery Procedure Cancelation : 11/20/2023 10:17 EST Surgery Procedure Cancel Reason : low hemoglobin/hematocrit. dr shaffer spoke with patient + pt's at length. pt instructed to contact primary care physician Sahra Lizarraga RN - 11/20/2023 10:[facility] NotePreprocedure Checklist Entered On: 11/15/2023 [...] risk situation (congregated living, hemodialysis, infusion clinic, shelter, assisted living, chcf, homeless longterm, etc.)? : No Sahra Lizarraga RN - [...] on and Verified : Yes Fall Risk Rf Manager : Yes Blood Band on and Verified : Yes Current H&P in Medical Record : Yes (Comment: 11/15/23 [Mary Ellen Price RN 11/15/2023 13:49 EST] ) Mary Ellen Price RN - 11/20/2023 9:50 EST Current ECG in Medical Record : Yes (Comment: 10/12/23 [Mary Ellen Price RN - 11/15/2023 13:49 EST] ) Basic [place] : Yes (Comment: 10/12/23 [Mary Ellen Price RN - 11/15/2023 13:49 EST] ) Prox / APTT : Yes (Comment: 10/12/23 [Mary Ellen Price RN - 11/15/2023 13:49 EST] ) Mary Ellen Price RN - 11/15/2023 13:49 EST CBCND : Yes (Comment: 11/15/23- faxed results to Dr. Shaffer's office [Mary Ellen Price RN 11/15/2023 13:49 EST] [...] Sahra Lizarraga RN - 11/20/2023 9:50 EST [facility]02-27-2024 NotePAA Education Entered On: 11/15/2023 13:49 EST [...] Education Dialysis Surgery - Hospital form # [id number] : Verbalizes understanding Mary Ellen Price RN [...] understanding Mary Ellen Price RN 11/15/2023 13:49 [facility]-20[facility] NotePatient: NEIL WILCOX Age: 78 years [...] 500 mg = 1 tabs, PRN, ORAL, [id number] acetaminophen/butalbital/caffeine 325 mg-50 mg-40 mg oral tablet = Fioricet 1 tabs, PRN, ORAL, [id number] Aspirin EC 81 mg oral delayed release [...] 2 mg = 1 caps, PRN, ORAL, N5VZISG losartan 100 mg oral tablet 100 mg [...] strength, No tenderness, No swelling. Integumentary: Warm, [place]. Neurologic: Alert, Oriented. Cognition and Speech: Oriented, [...] cardiac clearance and o (more content not included)...[facility]01-29-2024 History of Present illness Narrative* Za [...] due to atrial fibrillation, on anticoagulation. 10. SVW2UU6-QSDk at least 5. Has bled score 2 [...] redirect to the Timeline version of the Channel [employer] Smart[employer]. Wt Readings from Last 3 Encounters: [...] Daily atorvastatin (LIPITOR) 40 mg, oral, Daily kwhhkshnfm-admdsdi-vrbkzsfa (Fiorinal) 50-325-40 mg capsule 1 capsule, oral, [...] By signing my name below, I Halie Diamante Sepulveda LPNibgideon attest that this documentation has been prepared [...] exam, discussion and plan. [facility] Work Phone: 1(512) 996-742501-29-2024 Instructions* Patient Instructions* Phuong Atkinson CMA - [...] time of your visit. documented in [facility] Work Phone: 1(663) 306-633501-19-2024 NotePAA Education Entered On: 10/12/2023 10:13 EST [...] GRID Smoking/Tobacco Use : Verbalizes understanding Amy Hgaer RN 10/12/2023 10:10 EST Infection Control Education Dialysis Surgery - Hospital form # [id number] : Needs further teaching Amy Hager RN [...] EST] ) Amy Hager RN 10/12/2023 10:10 [facility]-28-2023 Hospital course Narrative* Adam Benedict MD - 08/28/2023 1:11 PM EST Discharge Diagnosis Atrial fibrillation ([facility] Hospital Course S/p VINNIE closure Access: Dual [...] 40 mg tablet; Commonly known as: Lipitor jlifsnapbs-ewzplivoubhix-mefj 50-325-40 mg tablet cyanocobalamin 1,000 mcg tablet; [...] Center 09/20/2023 10:30 AM Za Hernández MD [id number] [place] Adam Benedict MD documented in this [facility] Work Phone: 1(776) 810-804212-05-2023 History of Present illness Narrative* [facility] - 08/28/2023 12:10 PM EST Pharmacy Medication History Review Neil Wilcox is a 77 y.o. male admitted for Atrial fibrillation ([facility]). Pharmacy reviewed the patient's xalhu-qh-tirkmftef medications and allergies for accuracy. The list below reflects the updated CLINICAL PRACTITIONER list. Comments regarding how patient may be [...] tablet (40 mg) by mouth once daily. orsiorqrxo-uhsmljwfslqxn-pfyq 50-325-40 mg tablet Past Week Spouse/Significant Other, [...] Below are additional concerns with the patient's CLINICAL PRACTITIONER list. [facility] Ed Transitions of Care Clinical Pharmacist Please reach out via Keniu Chat for questions, if no response call [phone] or [employer] [facility] Electronically signed by [facility] at 08/28/2023 12:10 PM EST documented in this encounterUnProMed[facility] Work Phone: 1(308) 702-518312-05-2023 Note* Pre-Sedation Documentation - Adam Benedict MD - 08/28/2023 10:39 AM EST Sedation Plan ASA 2 Mallampati class: II. Risks, benefits, and alternatives discussed with patient. [facility] Work Phone: 1(824) 629-630012-05-2023 Miscellaneous Notes* Pre-Sedation Documentation - Adam Benedict MD - 08/28/2023 10:39 AM EST Sedation Plan ASA 2 Mallampati class: II. Risks, benefits, and alternatives discussed with patient. documented in [facility] Work Phone: 1(750) 307-616912-04-2023 Hospital Discharge instructions* Discharge Instructions* Lucas Pearce APRN-REGULATORY MANAGER - 08/27/2023 12:20 PM EST Watchman Discharge [...] you have any concerns, youmay contact the Java Xml Developer or if any of these symptoms become excessive, contact your feed weigher maikel to the emergency room. No tub [...] Any new concerning symptoms. documented in this [facility] Work Phone: 1(214) 896-927710-16-2023 Hospital Discharge instructions Patient Education 07/09/2023 11:37:10 [...] urethra. Follow these instructions at home: Take rneg-sws-eiqjeyv and prescription medicines only as told by [...] provider. Document Revised: 03/29/2022 Document Reviewed: 03/29/2022 [employer] Patient Education 2022 [employer]. Follow Up Care 01/01/2023 13:25:14 With:MARTY BETANCOURT, Trung Frost, URL Address: [facility] [address], [place] [address]- When:Within 4 Month(s) [facility] 07-11-2023 Hospital Discharge instructions Patient Education [...] provider. Document Revised: 01/19/2022 Document Reviewed: 01/19/2022 [employer] Patient Education 2022 [employer]. Follow Up Care 01/23/2023 14:39:57 With:CHARLOTTE BAKER PA-C, URL Address: [address] [place] [address] When: Unknown Comments:keep appt w/ [facility] 06-01-2023 History of Present illness Narrative* 77-year-old with history of atrial fibrillation, hypercoagulability related to atrial fibrillation,high MHA7DO7-NRLa score, most recently seen February 2023 and [...] to atrial fibrillation, on anticoagulation. * 10. SVG1HG7-NDJo at least 5. Has bled score 2 [...] 50 mg p.o. daily and discontinue amlodipine. -[facility] [address] DO Work Phone: 1(352) 209-550305-02-2023 Hospital Discharge instructions Patient Education 01/23/2023 14:45:05 [...] air conditioner or fan, if available. Apply hcae-ler-lxdyhli and prescription medicines only as told by [...] well after activity or exercise. Use a fine hairer on a cool setting to dry between [...] drying your skin and with medicines. Apply avag-iez-hpmcuar and prescription medicines only as told by [...] Document Reviewed: 06/26/2022 Elsevier Patient Education 2022 [employer]. [facility] [place] 04-10-2023 Hospital Discharge instructions Patient Education 01/01/2023 [...] reconstructed. Follow these instructions at home: Take mbzo-jtx-rfvsyzt and prescription medicines only as told by [...] 10/06/2016 Document Revised: 04/23/2019 Document Reviewed: 04/23/2019 [employer] Patient Education 2020 [employer]. Follow Up Care 10/02/2022 12:40:38 With:MARTY BETANCOURT, Trung Frost, URL Address: [facility] [address] , [place] [address]- When: Unknown [facility] [place] 02-10-2023 Hospital Discharge instructions Patient Education 11/03/2022 [...] reconstructed. Follow these instructions at home: Take vqfv-dig-vabgufn and prescription medicines only as told by [...] 10/06/2016 Document Revised: 04/23/2019 Document Reviewed: 04/23/2019 [employer] Patient Education 2020 [employer] Follow Up Care 11/03/2022 12:06:47 With:MARTY BETANCOURT, Trung Frost, URL Address: [address] [place], [place] [id number]- When: Unknown [facility] 01-09-2023 Hospital Discharge instructions Patient Education 10/02/2022 [...] fried and sweet foods. General instructions Take waoi-cwu-gsasfoj and prescription medicines only as told by [...] 07/07/2010 Document Revised: 01/01/2020 Document Reviewed: 09/26/2018 [employer] Patient Education 2020 [employer] Follow Up Care 07/24/2022 14:33:35 With:MARTY BETANCOURT, Trung Frost, URL Address: [facility] [address], [place] [phone] When:Within 3 Month(s) [facility] [place] 01-01-2023 History of Present illness Narrative* 77-year-old [...] to atrial fibrillation, on anticoagulation. * 10. [id number] at least 5. Has bled score 2 [...] 3 months sooner if interval problems arise -[facility] Laguerre DO Work Phone: [phone]) 414-189009-01-2022 History of Present illness Narrative* This is [...] orthostatics * 5. Fall precautions were reiterated. [place] [address] DO Work Phone: 1(855) 126-238108-01-2022 Hospital Discharge instructions Patient Education 04/24/2022 12:32:07 [...] nerve stimulation). For women, using a medical aide to prevent urine leaks. This is a [...] right after experiencing incontinence. General instructions Take pptj-bhj-ujjwdxr and prescription medicines only as told by [...] 10/18/2005 Document Revised: 09/20/2018 Document Reviewed: 12/20/2017 [employer] Patient Education 2020 [employer] Follow Up Care 01/24/2022 09:45:35 With:MARTY BETANCOURT, Trung Frost, URL Address: [facility] [address] , [place] [facility] [place] [phone] When: Unknown Comments:w/ urodynamics [facility] 05-02-2022 Hospital Discharge instructions Patient Education 01/23/2022 [...] urethra. Follow these instructions at home: Take mbgo-hyv-bhtbqxr and prescription medicines only as told by [...] 09/10/2006 Document Revised: 08/05/2019 Document Reviewed: 10/15/2017 [employer]aya Patient Education 2019 [employer]. Follow Up Care 12/20/2021 10:58:17 With:MARTY BETANCOURT, Trung Frost, URL Address: [facility] [address], [place] [address]- When: Unknown [facility] 01-01-2022 History of Present illness Narrative* Assessment: [...] have much in the way of symptoms. -[facility] [address] DO Work Phone: 1(282) 154-948003-01-2020 History of Present illness NarrativeMr. Wilcox is a 75-year-old male seen back today for follow-up on his implanted loop recorder. He was seen initially as a consult requested by neurology. He was admitted to [facility] in [place] in November 2019 with an acute stroke. [...] pain seems to be stable from cardiac perspective.-[facility] Laguerre DO Work Phone: 1(171) 587-994103-01-2020 History of Present illness Narrative* Patient is new to this provider. Per Dr. Reyes's prior notes: * Mr. Wilcox is a 75-year-old male seen back today for follow-up on his implanted loop recorder. He was seen initially as a consult requested by neurology. He was admitted to [facility] in [place] in November 2019 with an acute stroke. [...] medications for him in viewof his BPH. -[facility] [address] DO Work Phone: Chikl complaint Narrative - ReportedNEIL WILCOX is being seen for Discuss progress.[facility] [address] DO Work Phone: Evaluation + Plan note Future Appointments Appointment Date:01/24/2022 09:30:00 AM Scheduled Provider: Location:[facility] Appointment Type:Urology FT Appointment Date:09/04/2022 08:45:00 AM Scheduled Provider:Trung FERGUSON MD Location:[facility] Appointment Type:URO Office Visit [facility] evaluation + Plan note Future Appointments Appointment Date:04/25/2022 12:15:00 PM Scheduled Provider: Location:[facility] Appointment Type:Urology CALL PAT FT Appointment Date:05/09/2022 11:00:00 AM Scheduled Provider: Location:[facility] Appointment Type:Urology FT Appointment Date:09/04/2022 08:45:00 AM Scheduled Provider:Trung [facility]ERGUSON [facility] Office Visit [facility] evaluation + Plan note Future Appointments Appointment Date:09/04/2022 08:45:00 AM Scheduled Provider:Trung FERGUSON MD Location:[facility]ments Appointment Date:09/29/2022 08:45:00 AM Scheduled Provider:Trung [facility]ERGUSON [facility] Office Visit [facility] evaluation + Plan note Future Appointments Appointment Date:01/01/2023 11:30:00 AM Scheduled Provider:Trung FERGUSON MD [facility] Office Visit [facility] evaluation + Plan note Future Appointments Appointment Date:01/01/2023 11:30:00 AM Scheduled Provider:Trung FERGUSON MD Location:[facility] Appointment Type:URO Office Visit Diagnostic Tests Pending * Urine Culture [facility] App[facility]ments Appointment Date:11/06/2022 09:00:00 AM Scheduled Provider: Location:[facility] Appointment Type:URO Nurse Visit Appointment Date:01/01/2023 11:30:00 AM Scheduled Provider:Trung FERGUSON MD Location:[facility] Appointment Type:URO Office Visit [facility] evaluation + Plan note Future Appointments Appointment Date:07/09/2023 10:30:00 AM Scheduled Provider:Trung FERGUSON MD Location:[facility] Appointment Type:URO Office Visit [facility] evaluation + Plan note Future Appointments Appointment Date:04/03/2023 09:00:00 AM Scheduled Provider:CHARLOTTE BAKER PA-C Location:[facility] Appointment Type:URO Office Visit Appointment Date:07/09/2023 10:30:00 AM Scheduled Provider:Trung FERGUSON MD Location:[facility] Appointment Type:URO Office Visit [facility] evaluation + Plan note Future Appointments Appointment Date:11/12/2023 11:15:00 AM Scheduled Provider:Trung FERGUSON MD Location:[facility] Appointment Type:URO Office Visit [facility] evaluation + Plan note Future Appointments Appointment Date:06/16/2024 01:15:00 PM Scheduled Provider:Trung FERGUSON [facility] Office [facility] Evaluation noteNo Assessments Information Available [facility] CtrEvaluation noteNo assessment information available [facility] CtrEvaluation note* Diagnosis Paroxysmal atrial fibrillation (CMS/HCC)- Primary Atrial fibrillation Atrial fibrillation (CMS/HCC)- Primary Atrial fibrillation Atrial fibrillation (CMS/HCC) Atrial fibrillation documented in this encounter [facility] Work Phone: Evaluation note* Diagnosis Atrial fibrillation (CMS/HCC)- Primary Atrial fibrillation Atrial fibrillation (CMS/HCC) Atrial fibrillation Chronic atrial fibrillation, unspecified (CMS/HCC) 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 documented in this encounter [facility] Work Phone: Evaluation note* Diagnosis [...] of left shoulder documented in this encounter [facility] Work Phone: Evaluation note* Diagnosis Atrial fibrillation, unspecified type (CMS/HCC) documented in this encounter [facility] Work Phone: Evaluation note* Diagnosis Onset Date Resolution Status Acute renal insufficiency ac one[place] Anemia acute Elevated total protein acute Leukopenia acute Pancytopenia acute Thrombocytopenia acute Acute hypotension acute Acute renal insufficiency ac one[place] Anemia acute Hypercalcemia acute Multiple myeloma acute Pancytopenia acute Syncope acute Thrombocytopenia acute [facility] Work Phone: Evaluation note* Diagnosis Onset Date Resolution Status Acute renal insufficiency ac oneida Anemia acute Elevated total protein acute Leukopenia acute Pancytopenia acute Thrombocytopenia acute Acute hypotension acute Acute renal insufficiency ac one[place] Alzheimer's dementia acute Anemia acute Encounter for chemotherapy management acute Hypercalcemia acute Leukopenia acute Multiple myeloma acute Pancytopenia acute Syncope acute Thrombocytopenia acute [facility] Work Phone: Evaluation note* Diagnosis Onset Date Resolution Status Anemia acute Elevated total protein acute Pancytopenia acute Acute renal insufficiency re solved Leukopenia resolved Thrombocytopenia resolved Alzheimer's dementia acute Hypercalcemia acute Multiple myeloma acute Pancytopenia acute Acute hypotension resolved Acute renal insufficiency re solved Anemia resolved Encounter for chemotherapy management resolved Leukopenia resolved Syncope resolved Thrombocytopenia resolved [facility] Work Phone: History of Present illness Narrative* The patient states he has been generally stable since the last visit. Comorbid Illnesses: hypertension. * Symptoms: denies chest pain at rest, denies exertional chest pain, denies dyspnea, worsened fatigue, worsened exercise intolerance, denies palpitations, denies edema, denies orthopnea, denies dizziness and denies orthostatic dizziness. * Disease Monitoring: -[facility] [address] DO Work Phone: History [...] the near future to establish anticoagulation practice. -[facility] [employer] DO Work Phone: History of Present illness [...] the near future to establish anticoagulation practice. [facility] [employer] DO Work Phone: History of Present illness [...] medication regimen. He denies medication side effects. [facility] [employer] DO Work Phone: History of Present illness [...] medication regimen. He denies medication side effects. [facility] [employer] DO Work Phone: Hospital course Narrative No data available for this section [facility] Hospital Discharge instructions No data available for this section [facility] Additional Instructions Advanced Clinical Specialist Fdc to manage care: - Full code - PT/OT eval and treat - Routine vital signs - Mepilex border foam to Coccyx for added protection. Change every 3 days and as needed. - CBC/CMP on Sunday - results to Oncology Dr. Cardenas [facility] Work Phone: Progress note No data available for this section [facility] reason for referral (narrative)* Consultation (Routine) - Authorized Specialty Diagnoses / Procedures Referred By Contac t Referred To Contact Cardiology Diagnoses Paroxysmal atrial fibrillation (CMS/HCC) Procedures Follow Up In Cardiology Za Hernández MD [address] [facility] [address] [place] [address] Za Hernández MD [address] [facility] [address] [place] [address] Referral ID Status Reason Start Date Expiration Date V isits Requested Visits Authorized [id number] Authorized 10/22/2023 10/21/2024 1 1 * Consultation (Routine) - Authorized Specialty Diagnoses / Procedures Referred By Contac t Referred To Contact Cardiology Diagnoses Paroxysmal atrial fibrillation (CMS/HCC) Procedures Follow Up In Cardiology Za Hernández MD [address] [facility] [address] [place] [address] Loulou Arreguin, RADIOLOGIC TECHNOLOGY TEACHER-REGULATORY MANAGER [address] [facility] [address] [place] [address] Referral ID Status Reason Start Date Expiration Date V isits Requested Visits Authorized [id number] Authorized 10/22/2023 10/21/2024 1 1 [facility] Work Phone: Reason for Referral Status Reason Specialty Diagnoses / Procedures Referred By Contact Referred To Contact Not Required - [facility] Radiology Diagnoses 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) Procedures CT HEAD WO CONTRAST Ul Shalom Graham MD [address] [facility] [address] [place] [address] Specialty Diagnoses / Procedures Referred By Contac t Referred To Contact Radiology Diagnoses Atrial fibrillation, unspecified type (CMS/HCC) Procedures [place] [address] [place] [address] Referral ID Status Reason Start Date Expiration Date Visits Requested Visits Authorized [id number] Authorized Perform Procedure 11/01/2023 10/31/2024 1 1 Assessments Diagnosis 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) Advance Directives No Advanced Directives Records FoundDocuments on File Type Date Recorded 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 Piece Presser Expl 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 Advance Directives and Living Will Power of Merchandise Pickup/Receiving Associate Latest Code Status on File Code Status Date Activated Date Inactivated Comments Full Code 12/21/2019 9:20 PM 12/22/2019 7:58 PM Advance Directive Response Recorded Date/ Time Advance Directives No October 30, 2018 10:33am Documents on File Type Date Recorded Patient Piece Presser Expl anation ACP-Advance Directive ACP-Power of Merchandise Pickup/Receiving Associate Latest Code Status on File Code Status [...] Reason for Visit Chief Complaint NEW Pancytopenia Multiple Myeloma Low blood pressure pancytopenia Cerebral Infarction Reason for Visit Anemia Elevated total protein Pancytopenia Acute renal insufficiency Leukopenia Thrombocytopenia Alzheimer's dementia Hypercalcemia Multiple myeloma Pancytopenia Acute hypotension Acute renal insufficiency Anemia Encounter for chemotherapy management Leukopenia Syncope Thrombocytopenia Chief Complaint NEW Pancytopenia pancytopenia Multiple Myeloma [...] forward. In the meantime, I will h ave nursing staff contact pharmacy to verify. * [...] WO CONTRAST Ul Shalom Graham MD [address] [facility] [address] [place] [id number] Reason Comments laao Specialty Diagnoses / Procedures Referred By Contac t Referred To Contact Diagnoses Atrial fibrillation (CMS/HCC) Atrial fibrillation (CMS/HCC) [I48.91] Procedures SD PERQ CLSR TCAT L ATR APNDGE W/ENDOCARDIAL IMPLNT SD PERQ CLSR TCAT L ATR APNDGE W/ENDOCARDIAL IMPLNT LAAO (Left Atrial Appendage Occlusion) [place] [address] [place] [address] [place] [address] [facility] [address] [place] [address] Referral ID Status Reason Start Date Expiration Date Visits Re quested Visits Authorized [id number] 1 1 Reason Comments Follow-up Watchman follow up Specialty Diagnoses / Procedures Referred By Contac t Referred To Contact Radiology Diagnoses Atrial fibrillation, unspecified type (CMS/HCC) Procedures [place] [address] [place] [address] Referral ID Status Reason Start Date Expiration Date Visits Requested Visits Authorized [id number] Authorized Perform Procedure 11/01/2023 10/31/2024 1 1 [...] section and content) DATE CREATED AUTHOR 10/14/2020 [facility] DATE CREATED AUTHOR AUTHOR'S ORGANIZ ATION 04/23/2021 [facility] DATE CREATED AUTHOR AUTHOR'S ORGANIZ ATION 10/04/2021 [facility] DATE CREATED AUTHOR AUTHOR'S ORGANIZ ATION 01/24/2023 [facility] DATE CREATED AUTHOR AUTHOR'S ORGANIZ ATION 06/15/2023 [employer] DATE CREATED AUTHOR AUTHOR'S ORGANIZ ATION 08/05/2023 [facility] DATE CREATED AUTHOR AUTHOR'S ORGANIZ ATION 09/02/2023 [facility] DATE CREATED AUTHOR AUTHOR'S ORGANIZ ATION 10/24/2023 [facility] DATE CREATED AUTHOR AUTHOR'S ORGANIZ ATION 11/21/2023 [facility] DATE CREATED AUTHOR AUTHOR'S ORGANIZ ATION 12/04/2023 Arellano Jeremy [facility] DATE CREATED AUTHOR AUTHOR'S ORGANIZ ATION 01/03/2024 [facility] DATE CREATED AUTHOR AUTHOR'S ORGANIZ ATION 01/16/2024 [facility] DATE CREATED AUTHOR AUTHOR'S ORGANIZ ATION 02/13/2024 [facility] EPIC DATE CREATED AUTHOR AUTHOR'S ORGANIZ ATION 03/05/2024 [facility] DATE CREATED AUTHOR AUTHOR'S ORGANIZ ATION 03/18/2024 [facility] ys[facility] Goals (unrecognized section and [...] Active Za Hernández MD Attending Provider Active Conductor/Engineer Relationship Specialty Start Date End Date Sam Cooney DO [address] [place] [address] PCP - General 09/24/19 Conductor/Engineer Relationship Specialty Start Date End Date Sam Cooney DO [address] [place] [address] PCP - General 09/24/19 Conductor/Engineer Relationship Specialty Start Date End Date Sam Cooney DO [address] [place] [address] PCP - General 09/24/19 Conductor/Engineer Relationship Specialty Start Date End Date Sam Cooney MD [address] [place] [address] PCP - General Family Medicine 08/13/23 Conductor/Engineer Relationship Specialty Start Date End Date Sam Cooneyakterin EvansDO [address] [place] [address] PCP - General 09/24/19 Team Status: Inactive [...] Active S tart: March 05, 2024 End: March 09, 2024 Team Status: Inactive Member Role Status Dates Sam Cooney DO Primary Care Provider Active Start: March 05, 2024 End: March 05, 2024 Bertha Cuevas MD Attending Provider Active Start: March 05, 2024 End: March 05, 2024 Team Status: Active Member Role Status Dates Sam Cooney DO Primary Care Provide r, Referring Provider Active Start: March 14, 2024 Bertha Cuevas MD Attending Provider Active Start: March 14, 2024 Team Status: Inactive Member Role Status Dates Sam Cooney DO Primary Care Provider Active Start: March 17, 2024 End: March 17, 2024 Za Hernández MD Attending Provider Active Star t: March 17, 2024 End: March 17, 2024 Scheduled Active and Recently Administ ered [...] iodine/mL solution (CANCELED) As needed, Starting on e 08/28/23 at 1220, Intraprocedure 1220 (Given - Provid [...] BE BASED ON THE PRIMARY CLINICAL RECORDS. [employer] provides no warranty or guarantee of the accuracy or completeness of information in this document.
[2024-03-19 07:27] LABS: Hematocrit 24.4 % (42.0-54.0); Hemoglobin 8.1 g/dL (14.0-18.0); Mean Corpuscular HGB Conc 33.2 g/dL (29.9-35.2); Mean Corpuscular Hemoglobin 33.6 pg (25.9-34.0); Mean Corpuscular Volume 101.2 fL (80.0-94.0); Platelet Count 54 10^3/uL (150-450); Red Blood Count 2.41 10^6/uL (4.70-6.10); Red Cell Distribution Width 17.9 % (11.0-15.0); White Blood Count 2.4 10^3/uL (4.0-11.0)
[2024-03-19 08:12] LABS: Eosinophils Absolute Manual 0.04 10^3/uL (0.00-0.70); Lymphocytes Absolute Manual 1.77 10^3/uL (1.20-3.80); Segmented Neut Absolute Manual 0.57 10^3/uL (1.4-6.5)
== END 2024-03-19 01:12 | disposition home or self-care (01) ==
LOC: LAB 01:11
PROVIDERS: PCP Family Medicine
DX: C90.00 Multiple myeloma not having achieved remission (principal)
CPT/HCPCS: 36415; 85007; 85027

== ENCOUNTER 2024-03-21 03:10 | Outpatient (REF) | payer MEDICARE, OTHER, SELFPAY ==
--- OUTSIDE RECORDS SUMMARY | 2024-03-21 03:15 | XMS_ITS ---
Patient Summarization (C-CDA 2.1 CCD) Created on: March 21, 2024 JeriNeil : 1945 Sex: Male Author Organization Sample organization Care Team Providers Care 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 Name Role Phone [place], [place] E Primary Care Provider [phone] [place], Sam Primary Care Provider [phone] Erick Wise Attending Provider Ul Santos, Israr Attending Provider [phone] [place], [place] E Primary Care Provider [phone] MURRAY LESTER Admitting Unavailable GRAYSON GAOL Attending Unavailable BILLY VILLA Referring Unavailable CYNDY MADISON Consulting Unavailable BRISTOL, SAM E Primary Care Unavailable UL SANTOS, ISRAR Referring Unavailable BRISTOL, SAM E Primary Care Unavailable UL SANTOS, ISRAR Referring Unavailable BRISTOL, SAM E Primary Care Unavailable [place] Sam Attending Provider [place], Sam Primary Care Provider [phone] Erick Wise Attending Provider [phone] [place], Sam Primary Care Provider [phone] Erick Wise Attending Provider Sam Cooney Attending Provider [phone] [place], [place] E Unavailable Unavailable Unavailable EROS SAM Primary Care Physician [phone] Unavailable Unavailable DO Sam Cooney Primary Care Provider [phone] MD Za Hernández Attending Provider DR TRUNG RUGGIERO Consulting Unavailable MARTY ., DR NINO Attending Unavailable MARTY ., DR NINO Admitting Unavailable EROS, DR VARGAS Primary Care Unavailable ROXANNE ZAIDI Consulting Unavailable MARTY ., DR NINO Attending Unavailable MARTY ., DR NINO Admitting Unavailable MARTY ., DR NINO Consulting Unavailable BRISTOL, DR VARGAS Primary Care Unavailable GEMPRINCESS, CLARA Consulting Unavailable ARREGUIN, DR CONCHITA Frost [...] Attending Unavailable BRISTOL, DR VARGAS Admitting Unavailable [place], DO Vargas Primary Care Provider [phone] MD Za Hernández Attending Provider PURNIMA DAVIDSON JR Primary Care Unavailable [place], DO Vargas Primary Care Provider [phone] MD Za Hernández Attending Provider [phone] Sam Cooney DO Primary Care [facility] ider Eros, Dr. Sam Evans Primary Care Unavailable ZA HERNÁNDEZ Attending Unavailable ZA HERNÁNDEZ Referring Unavailable Eros, Dr. Sam Evans Primary Care Unavailable ZA HERNÁNDEZ Attending Unavailable ZA HERNÁNDEZ Referring Unavailable Eros, Dr. Sam Evans Primary Care Unavailable ZA HERNÁNDEZ Attending Unavailable ZA HERNÁNDEZ Referring Unavailable Eros, Dr. Sam Evans Primary Care Unavailable Rodríguez, Louloutonja Hurt Attending Dima Arreguin, Ms. Loulou Hurt Referring Violettevadashawn Cooney, Dr. Sam Evans Primary Care Unavailable Rodríguez, Ms. Loulou Hurt Attending Dima Arreguin, Ms. Loulou Hurt Referring Unavai labwalter Cooney, Dr. Sam Evans Primary Care Unavailable Eros, Dr. Sam Evans Primary Care Unavailable [place], Dr. Sam Evans Primary Care Unavailable [place], Dr. Sam Evans Primary Care Unavailable [place], DO Sam Primary Care Provider MD Za Hernández Attending Provider ZA HERNÁNDEZ Attending Unavailable SAN YSIDROSAM [facility] Care Unav ailable Sam Cooney MD Primary Care Provider [phone] GUNNAR SHAFFER DO Attending Unavailabl e SHAFFER [...] CHAVEZ Attending Unavailable GRACE VAZQUEZ Attending Unavailable [place], DO Sam Primary Care Provider [place], DO Sam Referring Provider [phone] MD Bertha Cuevas Attending Provider SAM COONEY LEN [facility] Care Unav ailable RYAN COBB Admitting Unavailable RYAN COBB Attending Unavailable BRISTOL, SAM MANJU LEN Primary Care Unav ailable [place], DO [place] Primary Care Provider [phone] [place], DO Sam Referring Provider MD Bertha Cuevas Attending Provider DO Trung Armenta Emergency Provider KristianDO rupa Yazid Admit Provider DO Kristian Yazid Attending Provider MD Verenice Mario Other Provider MD Vijay Aguilar Attending Provider [place], DO [place] Primary Care Provider MD Bertha Cuevas Attending Provider [place], DO [place] Referring Provider MD Za Hernández Attending Provider [phone] [place], DO Sam Referring Provider [phone] [place], [place] Primary Care Unavailable Hernández, Za Admitting Unavailable Hernández, Za Attending Unavailable [place], Sam Primary Care Unavailable Hernández, Za Attending Unavailable Hernández, Za Admitting Unavailable [place], [place] Primary Care Unavailable Hernández, Za Attending Unavailable Hernández, Za Admitting Unavailable Hernández, Za Attending Unavailable Hernández, Za Admitting Unavailable [place], [place] Primary Care Unavailable [place], Sam Primary Care Unavailable Al-Marrawi, Mhd Yaser Admitting Unavailabl e Al-Marrawi, Mhd Yaser Attending Unavailabl e [place], [place] Referring Unavailable [place], [place] Primary Care Unavailable Al-Marrawi, Mhd Yaser Admitting Unavailabl e Al-Marrawi, Mhd Yaser Attending UnavailVerenice Sanchez Consulting Unavailable Kristian, Yazid Admitting Unavailable Vijay Aguilar Attending Unavailable [place], Sam Primary Care Unavailable [place], Sam Primary Care Unavailable Hernández, Za Admitting Unavailable Hernández, Za Attending Unavailable Unavailable Unavailable Unavailable Encounters Encounter Date Encounter Type Care Provider Facility Start: 06-16-2024 ambulatory Trung FERGUSON Sarai [facility] Start: 03-20-2024 Registered Recurring DO Sam Cooney Work Phone: [facility] Work Phone: Start: 03-20-2024 End: 03-20-2024 ambulatory DO Sam Cooney Work Phone: [facility] Work Phone: Start: 03-20-2024 End: 03-20-2024 Patient encounter procedure DO Sam Cooney Work Phone: [facility] Work Phone: Start: 03-17-2024 End: 03-17-2024 Patient encounter procedure DO Sam Cooney Work Phone: [facility]-Pacemaker Check Start: 03-17-2024 End: 03-17-2024 ambulatory DO Sam Cooney Work Phone: [facility] Work Phone: Start: 03-14-2024 Registered Recurring DO Sam Cooney Work Phone: [facility] Work Phone: Start: 03-05-2024 End: 03-09-2024 Evaluation and management of inpatient DO Sam Cooney Work Phone: [facility] [place] [facility] Work Phone: Start: 03-05-2024 End: 03-05-2024 Admission to same day surgery center DO Sam Cooney Work Phone: [facility]-CT Scan [facility] [place] Work Phone: Start: 03-05-2024 End: 03-05-2024 ambulatory DO Sam Cooney Work Phone: [facility] Work Phone: Start: 03-03-2024 Registered Recurring DO Sam Cooney [facility] Work Phone: Start: 02-21-2024 End: 02-21-2024 ambulatory DO Sam Cooney Work Phone: [facility] Work Phone: Start: 02-21-2024 End: 02-21-2024 Patient encounter procedure DO Sam Cooney Work Phone: [facility] Ambulatory Work Phone: Start: 02-21-2024 Registered Recurring DO Sam Cooney Work Phone: [facility] Work Phone: Start: 02-11-2024 End: 02-11-2024 ambulatory GRACE VAZQUEZ Not Available Start: 01-15-2024 End: 01-15-2024 ambulatory [facility] Start: 12-28-2023 ambulatory [facility] Start: 12-28-2023 End: 12-29-2023 ambulatory [facility] Start: 12-28-2023 End: 12-28-2023 Subsequent hospital visit by physician Fatemeh Spring[address]vs[address] [facility] Comment on above: Atrial fibrillation, unspecified type (CMS/HCC) Start: 12-03-2023 End: 12-04-2023 ambulatory Trung FERGUSON Facility: [facility] Start: 12-03-2023 End: 12-03-2023 Patient encounter procedure Trung FERGUSON [facility] Start: 11-20-2023 ambulatory GUNNAR Leonard cility:[id number] Start: 11-07-2023 End: 11-07-2023 ambulatory CAMILA ZEPEDA MD Facility:[id number] Start: 11-06-2023 Chart abstracting Kylee Arreguin DPM Work Phone: [facility] Start: 10-22-2023 End: 10-22-2023 ambulatory [facility] Ambulatory Start: 10-22-2023 End: 10-22-2023 Encounter for preprocedural cardiovascular examination [facility] Ambulatory Start: 10-22-2023 End: 10-22-2023 Office [...] encounter status Za Hernández MD Work Phone: [facility] Work Phone: Start: 09-10-2023 End: 09-10-2023 ambulatory DO Sam Cooney Work Phone: [facility] Work Phone: Start: 09-10-2023 End: 09-10-2023 Patient encounter procedure DO Sam Cooney Work Phone: [facility]-Pacemaker Check Start: 08-28-2023 End: 08-28-2023 Subsequent hospital visit by physician Ryan Cobb MD Work Phone: [facility] Comment on above: Atrial fibrillation (CMS/HCC) (Primary Dx); Chronic atrial fibrillation, unspecified (CMS/HCC); Presence of Watchman left atrial appendage closure device Start: 08-24-2023 Evaluation and manag ement of inpatient [facility] Start: 08-22-2023 End: 08-22-2023 ambulatory [facility] Start: 08-22-2023 End: 08-22-2023 Office outpatient new 45 minutes Ryan Cobb MD Work Phone: [facility] Comment on above: Paroxysmal atrial fi brillation (CMS/HCC) (Primary Dx) Start: 08-13-2023 End: 08-13-2023 ambulatory KYLEE ARREGUIN Not Available Start: 08-09-2023 End: 08-09-2023 Patient encounter procedure DO Sam Cooney Work Phone: [facility]-Pacemaker Check Start: 08-09-2023 End: 08-09-2023 ambulatory DO Sam Cooney Work Phone: [facility] Work Phone: Start: 07-31-2023 End: 08-01-2023 ambulatory PURNIMA DAVIDSON JR Facility:[facility] Start: 07-31-2023 Encounter for other preprocedural examination PURNIMA DAVIDSON JR [facility] Start: 07-31-2023 End: 08-01-2023 ambulatory SHERLEY CHAVEZ Not Available Start: 07-09-2023 End: 07-10-2023 ambulatory Trung FERGUSON Facility:[facility] Start: 07-09-2023 End: 07-09-2023 ambulatory Sam Cooney Facility:[facility] Start: 07-09-2023 End: 07-09-2023 Patient encounter procedure Trung FERGUSON [facility] Start: 06-11-2023 Office outpatient vi sit 25 minutes Sam Cooney Work Phone: [facility] 250 DO Work Phone: Start: 06-11-2023 ambulatory ZA HERNÁNDEZ Facility:[id number] Start: 06-07-[address] Sam Cooney Facility:[id number] Start: 06-07-2023 End: 06-07-2023 Patient encounter procedure DO Sam Cooney Work Phone: [facility]-Pacemaker Check Start: 06-07-2023 End: 06-07-2023 ambulatory DO Sam Cooney Work Phone: [facility] Work Phone: Start: 05-08-[address] Sam Cooney Facility:[id number] Start: 05-07-2023 End: 05-07-2023 Patient encounter procedure DO Sam [place] Work Phone: [facility]-Pacemaker Check Start: 05-07-2023 End: 05-07-2023 ambulatory DO Sam [place] Work Phone: [facility] Work Phone: Start: 04-03-2023 End: 04-04-2023 ambulatory CHARLOTTE BAKER Facility:[facility] Start: 04-03-2023 End: 04-03-2023 Patient encounter procedure CHARLOTTE BAKER [facility] Start: 02-26-2023 ambulatory Ms. Loulou Arreguin Facility: Start: 02-26-2023 Office outpatient vi sit 25 minutes [place] E [place] Work Phone: [facility] 250 DO Work Phone: Start: 02-26-2023 Patient encounter procedure Sam Cooney Work Phone: [facility] 250 DO Work Phone: Start: 01-23-2023 End: 01-24-2023 ambulatory DO Sam [place] Work Phone: [facility] Work Phone: Start: 01-23-2023 End: 01-23-2023 Patient encounter procedure [facility]TE BAKER [facility] Start: 01-22-2023 End: 01-22-2023 Patient encounter procedure DO Sam [place] Work Phone: [facility] Start: 01-22-2023 End: 01-22-2023 ambulatory DO Sam Cooney Work Phone: [facility] Work Phone: Start: 01-01-2023 End: 01-02-2023 ambulatory Trung FERGUSON Facility:[facility] Start: 01-01-2023 End: 01-01-2023 Patient encounter procedure Trung FERGUSON [facility] Start: 12-08-[address] Sam Cooney Facility:[id number] Start: 12-08-2022 End: 12-08-2022 ambulatory DO Sam Cooney Work Phone: [facility] Work Phone: Start: 12-08-2022 End: 12-08-2022 Patient encounter procedure DO Sam Cooney Work Phone: [facility]-Pacemaker Check Start: 11-17-2022 Patient encounter procedure Sam Cooney Work Phone: [facility] 250 DO Work Phone: Start: 11-06-2022 End: 11-06-2022 Patient encounter procedure Trung FERGUSON [facility] Start: 11-03-2022 End: 01-10-[address] SAM COONEY Facility:H1 Start: 11-03-2022 End: 11-03-2022 Patient encounter procedure Trung FERGUSON [facility] Start: 10-17-2022 End: 10-17-2022 Lab Drop off CHARLOTTE BAKER [facility] Start: 10-17-2022 End: 10-17-2022 Patient encounter procedure CHARLOTTE BAKER [facility] Start: 10-09-2022 ambulatory Ms. Loulou Arreguin Facility: Start: 10-09-2022 FUV, Provider: Loulou Myles, Status: Pen, Time: 12:30 PM [place] E [place] Work Phone: [facility] 250 DO Work Phone: Start: 10-09-2022 Office outpatient vi sit 15 minutes [place] E [place] Work Phone: [facility] 250 DO Work Phone: Start: 10-09-2022 Patient encounter procedure Sam E [place] Work Phone: [facility] 250 DO Work Phone: Start: 10-02-2022 ambulatory ZA HERNÁNDEZ Facility:[id number] Start: 10-02-2022 Office outpatient vi sit 25 minutes [place] E [place] Work Phone: [facility] 250 DO Work Phone: Start: 10-02-2022 End: 10-02-2022 Patient encounter procedure Trung FERGUSON [facility] Start: 09-19-2022 Rx Renewal [place] E Brist ol Work Phone: [facility] 250 DO Work Phone: Start: 09-11-2022 Office outpatient vi sit 10 minutes Sam E [place] Work Phone: [facility] 250 DO Work Phone: Start: 09-11-2022 ambulatory ZA HERNÁNDEZ Facility:[id number] Start: 09-04-2022 End: 09-04-2022 Patient encounter procedure Trung FERGUSON [facility] Start: 09-02-2022 Encounter for preprocedural laboratory [...] sit 25 minutes Sam Cooney Work Phone: [facility] 250 DO Work Phone: Start: 08-25-2022 End: 08-26-[address] SAM COONEY Facility:H1 Start: 08-22-2022 End: 08-23-[address] TRUNG FERGUSON . Facility:H1 Start: 08-14-2022 Telephone encounter Sam cerna Work Phone: [facility] 250 DO Work Phone: Start: 07-20-2022 ambulatory [...] sit 15 minutes Sam Cooney Work Phone: [facility] 250 DO Work Phone: Start: 06-15-2022 Patient encounter procedure Sam Cooney Work Phone: [facility] 250 DO Work Phone: Start: 04-24-2022 End: 05-10-2022 Pre-admission assessment Trung FERGUSON [facility] Start: 04-24-2022 End: 04-24-2022 Patient encounter procedure Trung FERGUSON [facility] Start: 04-12-2022 Telephone encounter Sam Peterson ristol Work Phone: [facility] 250 DO Work Phone: Start: 04-08-2022 End: 04-08-[address] CONCHITA ARREGUIN Facility:H1 Start: 02-17-2022 End: 04-05-[address] SAM COONEY Facility:H1 Start: 01-23-2022 End: 01-23-2022 Patient encounter procedure Trung FERGUSON [facility] Start: 08-31-2021 Office outpatient vi sit 15 minutes Sam Cooney Work Phone: [facility] 250 DO Work Phone: Start: 02-07-2021 End: 02-07-2021 Patient encounter procedure Sam Cooney Work Phone: -[facility] [place] Start: 01-07-2021 End: 01-07-2021 Patient encounter procedure Sam Cooney Work Phone: -Pacemaker Check Start: 10-13-2020 End: 10-14-2020 Patient encounter procedure ISRAR UL SANTOS [facility] Start: 10-13-2020 End: 10-13-2020 Subsequent hospital visit by physician Sam Cooney [facility] Start: 10-08-2020 End: 10-08-2020 Patient encounter procedure Sam Cooney -Pacemaker Check Start: 2020 End: 2020 Patient encounter procedure Sam Cooney -[facility] [place] Start: 09-15-2020 End: 09-15-2020 Patient encounter procedure Sam Cooney -CT [address] Start: 07-07-2020 End: 07-07-2020 Patient encounter procedure Sam Cooney -Pacemaker Check Start: 02-04-2020 End: 02-07-2020 Patient encounter procedure ISRAR UL SANTOS [facility] Start: 02-04-2020 End: 02-06-2020 Subsequent hospital visit by physician Landy Singh Rm [address] [facility] [address] Scan Comment on above: 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7 ML Intramuscular Suspension Prefilled Syringe Sam Meneses [place] Work Phone: [facility] 250 DO Work Phone: 10-09-2022 influenza virus vacc ine, unspecified formulation Trung FERGUSON [facility] 10-09-2021 Fluzone High-Dose Quadrivalent 0.7 ML Intramuscular Suspension Prefilled Syringe Sam E [place] Work Phone: [facility] 250 DO Work Phone: 10-09-2021 influenza virus vacc ine, unspecified formulation CardioVIP [facility] 11-29-2020 Christina COVID-19 Vac cine 0.5 ML Intramuscular Suspension Sam E [place] Work Phone: [facility] 09-06-2019 influenza virus vacc ine, unspecified formulation [facility] 09-06-2019 influenza, high dose seasonal, preservative-free [place] [facility] [facility] Work Phone: 06-24-2019 influenza virus vacc ine, unspecified formulation [facility] 06-24-2019 influenza, high dose seasonal, preservative-free [place] E [place] Work Phone: [facility] DO Work Phone: 08-04-2018 influenza virus vacc ine, unspecified formulation [facility] 08-04-2018 influenza, high dose seasonal, preservative-free [place] E [place] Work Phone: [facility] 250 DO Work Phone: 05-25-2018 influenza virus vacc ine, unspecified formulation [facility] 05-25-2018 influenza, seasonal, injectable [place] E [place] Work Phone: [facility] 250 DO Work Phone: 09-21-2017 influenza virus vacc ine, unspecified formulation Trung FERGUSON [facility] 09-21-2017 Seasonal trivalent influenza vaccine, adjuvanted, preservative free Sam E [place] [facility] Work Phone: 09-24-2016 pneumococcal polysaccharide vaccine, 23 valent [place] E [place] Work Phone: [facility] 10-19-2015 pneumococcal conjuga te vaccine, 13 valent [place] E [place] Work Phone: [facility] 07-12-2015 pneumococcal polysaccharide vaccine, 23 valent Sam E [place] Work Phone: [facility] 2014 zoster vaccine, live Sam E [place] Work Phone: [facility] 08-08-2011 influenza virus vacc ine, unspecified formulation Trung FERGUSON [facility] 08-08-2011 influenza, seasonal, injectable [place] E [place] Work Phone: [facility] 250 DO Work Phone: 07-14-2009 influenza virus vacc ine, whole virus Sam E [place] Work Phone: [facility] 250 DO Work Phone: 07-14-2009 influenza, whole Trung LCAI ERS [facility] Medications Current Medications Medication Drug Class(es) Dates Sig (Normalized) Sig (Original) acetaminophen 500 mg oral capsule (8 sources) Start: 03-05-2024 take 500 mg by [...] three times daily as needed for pain Vgpavyennj-DHEG-Vndueamu 50-325-40 MG Or al Tablet TAKE 1 TABLET 3 TIMES DAILY NEEDED FOR PAIN. Quantity: 0 Refills: 0 Ordered: 18-Jul-2021 DO Start : 18-Jan-2021 Active Start: 05-19-2019 butalbital-sadie taminophen-caffeine (FIORICET, ESGIC) 50-325-40 MG per tablet Take by mouth 0 05/19/2019 Active Start: 05-19-2019 End: 02-21-2024 Fccvcctpch-Sxxwdhzkoilgr-Ohr f Discontinued 1 TAB PO As Directed May 19, 2019 12:00am February 21, 2024 2:58pm [id number] actuat albuterol 0.09 mg/actuat metered dose [...] by mouth every four hours as needed hgpcuyrfzj-hkvlngt-zlrccdol (Fiorinal) 50-325-40 mg capsule Take 1 capsule [...] Start: 01-21-2021 take 1 capsule by mo [facility] once daily FLUoxetine (PROzac) 20 mg capsule [...] Active folic acid 1 mg oral tablet (16 sources) Start: 02-21-2024 take 1 mg by mouth once daily Folic Acid Active 1 MG PO Daily February 21, 2024 12:00am Start: 04-30-2023 take 1 tablet by renny th once daily folic acid (Folvite) 1 mg [...] weeks. if no improvement contact office., [facility]/pharmacy #[id number], 175, cm, 01/23/23 14:14:00 EDT, Height/Length Dosing, 81, kg, 01/23/23 14:14:00 EDT, Weight Dosing Start Date: 01/23/23 Stop Date: 02/13/23 Status: Ordered lenalidomide 25 mg oral capsule (4 sources) Thalidomide Analog Start: 03-07-2024 Lenalidomide (Revlimid) 25 mg capsule Active 25 MG PO Daily March 07, 2024 12:00am TAKE ONE DAILY FOR 21 DAYS AND 7 DAYS OFF.ADULT MALE AUTH#[id number] levothyroxine sodium 0.125 mg oral tablet (20 [...] Active memantine hydrochloride 10 mg oral tablet (16 sources) T-pyvhzc-L-aspartate Receptor Antagonist Start: 02-21-2024 take 10 mg [...] succinate 25 mg extended release oral tablet (17 sources) beta-Adrenergic Misael Start: 02-21-2024 take 25 [...] new start ondansetron 4 mg oral tablet (11 sources) Serotonin-3 Receptor Antagonist Start: 03-05-2024 Ondansetron [...] 40 mg QUEtiapine 25 mg oral tablet (6 sources) Atypical Antipsychotic Start: 02-21-2024 take 0.5 [...] 0 Start Date: 07/09/23 Status: Ordered thyroid (long-term) 90 mg oral tablet (20 sources) Start: 02-27-2020 take 1 tablet by mouth once daily in the morning Thyroid (Pork) (Harrah Thyroid) 90 mg tablet Active 90 MG PO Every morning February 27, 2020 12:00am Start: 12-29-2019 Harrah Thyroid Oral, Daily, Refills(s) 0 Start Date: [...] 12:00am Start: 07-09-2023 take 1 capsule by [facility] every twenty-four hours in the morning tolterodine LA (Detrol LA) 2 MG 24 hr capsule Take 2 mg by mouth in the morning. 0 07/09/2023 Active Start: 01-23-2022 take 1 capsule by [facility] every other day tolterodine 4 mg Cap-ER 4 mg = 1 cap(s), Oral, Every other day, # 30 cap(s), Refills(s) 6, Pharmacy: [facility]/pharmacy #[id number], 175, cm, 01/23/22 13:07:00 EDT, Height/Length Dosing, 83, kg, 01/23/22 13:07:00 EDT, Weight Dosing Start Date: 01/23/22 Status: Ordered Start: 01-23-2022 take 1 capsule by mouth once d aily tolterodine 4 mg Cap-ER 4 mg = 1 cap(s), Oral, Daily, # 30 cap(s), Refills(s) 6, Pharmacy: [facility]/pharmacy #[id number], 175, cm, 01/23/22 13:07:00 EDT, Height/Length Dosing, 83, kg, 01/23/22 13:07:00 EDT, Weight Dosing Start Date: 01/23/22 Status: Ordered Start: 09-27-2020 tolterodine 2 mg Cap-ER 2 mg = 1 cap(s), Oral, As Directed, Take one cap in the morning and one at dinnertime., # 60 cap(s), Refills(s) 11, Pharmacy: [facility]/pharmacy #[id number], 175, cm, 12/03/23 15:27:00 EDT, [...] Active vitamin b12 1 mg oral capsule (14 sources) Vitamin B12 Start: 02-21-2024 take 1000 [...] DAILY. Quantity: 90 Refills: 3 Ordered: 19-Sep-2022 Alton Hernández MDtha Start : 29-Apr-2020 Active Start: 02-27-2020 End: [...] 02/05/2023 08/28/2023 Discontinued (Entered in Error) amoxicillin (Salem xil) 500 mg capsule Take 1 capsule [...] # 2 tab(s), Refills(s) 0, Pharmacy: [facility]/pharmacy #[id number], 175, cm, 01/23/22 13:07:00 EDT, [...] Active dicyclomine hydrochloride 20 mg oral tablet (18 sources) Anticholinergic Start: 05-19-2019 End: 04-07-2020 take [...] Apply as needed prior to self dilation, [id number], 175, cm, 11/03/22 13:03:00 EST, Height/Length Dosing, 82.8, kg, 11/03/22 13:03:00 EST, Weight Dosing Start Date: 12/01/22 Stop Date: 12/01/22 Status: Ordered Start: 12-01-2022 End: 12-01-2022 Glydo 2% topical gel with ap plicator 11 mL 0.2 gm, 10 mL, Topical, As Directed, 30 mL, Refill(s) 6, Apply as needed prior to self dilation, [id number], 175, cm, 11/03/22 13:03:00 EST, Height/Length Dosing, 82.8, kg, 11/03/22 13:03:00 EST, Weight Dosing Start Date: 12/01/22 Stop Date: 12/01/22 Status: Ordered Start: 12-01-2022 End: 12-01-2022 Glydo 2% topical gel with ap plicator 11 mL 0.2 gm, 10 mL, Topical, As Directed, 30 mL, Refill(s) 6, Apply as needed prior to self dilation, [facility]/pharmacy #[id number], 175, cm, 11/03/22 13:03:00 EST, Height/Length Dosing, 82.8, kg, 11/03/22 13:03:00 EST, Weight Dosing Start Date: 12/01/22 Stop Date: 12/01/22 Status: Ordered Start: 12-01-2022 End: 12-01-2022 Glydo 2% topical gel with ap plicator 11 mL 0.2 gm, 10 mL, Topical, As Directed, 30 mL, Refill(s) 6, Apply as needed prior to self dilation, [facility]/pharmacy #[id number], 175, cm, 11/03/22 13:03:00 EST, [...] 12:00am March 05, 2024 6:44pm Thyroid (Pork) (Harrah Thyroid) 90 mg tablet (5 sources) Start: 02-27-2020 End: 03-05-2024 take 1 tablet by mouth once daily in the morning Thyroid (Pork) (Harrah Thyroid) 90 mg tablet Discontinued 90 MG PO Every morning February 27, 2020 12:00am March 05, 2024 6:44pm Vitamin B-12 TABS (2 sources) Vitamin B-12 TAB S TAKE 1 TABLET DAILY. Quantity: 0 Refills: 0 Ordered: 11-Jun-2023 DO Active Payers Date Payer Category Payer Self-pay [id number] 2022 Medicare [id number] 2022 Unknown 2019 Medicare MEDICARE RAILROA D MEDICARE xxxxxxxxxxx 2019-Present [phone] [place] [address] xxxxxxxxxxx [id number] 2019 Unknown [employer] [place] [employer] [place] [employer]IC[employer] SUPP xxxxxx-xx 2019-Present [phone] ATTN INDIVIDUAL CLAIMS [id number] [place] [address] xxxxxx-xx [id number] 2019 Unknown [id number] 2012 Medicare [id number] 1959 Medicare [id number] 1959 Medicare [id number] 1959 Unknown [id number] 1947 Unknown [id number] 2.16.840.1.199315.3.579.2 .175 1947 Unknown [id number] 2.16.840.1.093747.3.579.2 .175 1947 Unknown [id number] 2.16.840.1.568657.3.579.2 .175 1947 Unknown [id number] 2.16.840.1.758760.3.579.2 .593 1947 Unknown [id number] 2.16.840.1.817800.3.579.2 .593 1947 Unknown [id number] 2.16.840.1.666237.3.579.2 .593 1947 Unknown [id number] 2.16.840.1.353041.3.579.2 .593 1947 Unknown [id number] 2.16.840.1.276789.3.579.2 .593 1947 Unknown [id number] 2.16.840.1.390639.3.579.2 .593 1947 Unknown [id number] 2.16.840.1.023146.3.579.2 .593 1947 Unknown [id number] 2.16.840.1.739770.3.579.2 .593 1947 Unknown [id number] 2.16.840.1.610418.3.579.2 .593 1947 Unknown [id number] 2.16.840.1.413725.3.579.2 .593 1947 Unknown [id number] 2.16.840.1.253701.3.579.2 .593 1947 Unknown [id number] 2.16.840.1.854466.3.579.2 .356 1947 Unknown [id number] 2.16.840.1.647399.3.579.2 .356 1947 Unknown [id number] 2.16.840.1.254808.3.579.2 .356 1947 Unknown [id number] 2.16.840.1.840945.3.579.2 .356 1947 Unknown [id number] 2.16.840.1.070189.3.579.2 .356 1947 Unknown [id number] 2.16.840.1.807675.3.579.2 .356 1947 Unknown [id number] 2.16.840.1.916555.3.579.2 .356 1947 Unknown [id number] 2.16.840.1.296634.3.579.2 .356 1947 Unknown [id number] 2.16.840.1.609183.3.579.2 .356 1947 Unknown [id number] 2.16.840.1.760338.3.579.2 .1244 1947 Unknown [id number] 2.16.840.1.777361.3.579.2 .159 1947 Unknown [id number] 2.16.840.1.779153.3.579.2 .159 1947 Unknown [id number] 2.16.840.1.410441.3.579.2 .727 1947 Unknown [id number] 2.16.840.1.545858.3.579.2 .727 1947 Unknown [id number] 2.16.840.1.671859.3.579.2 .727 1947 Unknown [id number] 2.16.840.1.335882.3.579.2 .727 1947 Unknown [id number] 2.16.840.1.414720.3.579.2 .727 1947 Unknown [id number] 2.16.840.1.941154.3.579.2 .727 1947 Unknown [id number] 2.16.840.1.593258.3.579.2 .1246 1947 Unknown [id number] 2.16.840.1.244204.3.579.2 .1246 1947 Unknown [id number] 2.16.840.1.084953.3.579.2 .1286 1947 Unknown [id number] 2.16.840.1.093241.3.579.2 .1286 1947 Unknown [id number] 2.16.840.1.890644.3.579.2 .1259 1947 Unknown [id number] 2.16.840.1.996059.3.579.2 .1259 1947 Unknown [id number] 2.16.840.1.871372.3.579.2 .1259 1947 Unknown [id number] 2.16.840.1.934278.3.579.2 .1245 1947 Unknown [id number] 2.16.840.1.014914.3.579.2 .1245 Private Health Insurance Unknown [id number] 2.16.840.1.277061.3.579.2 .531 Unknown [id number] 2.16.840.1.539705.3.579.2 .531 Unknown [id number] 2.16.840.1.760066.3.579.2 .531 Unknown [id number] 2.16.840.1.861616.3.579.2 .531 Unknown [id number] 2.16.840.1.341259.3.579.2 .531 Unknown [id number] 2.16.840.1.802234.3.579.2 .531 Unknown [id number] 2.16.840.1.025027.3.579.2 .531 Unknown [id number] 2.16.840.1.959631.3.579.2 .531 Plan of Treatment Date Care Activity Detail Author Start: 05-20-2033 DTaP/Tdap/Td Vaccine s (2 - Td or Tdap) DTaP/Tdap/Td Vaccines (2 - Td or Tdap) [facility] Start: 10-13-2024 End: 10-13-2024 Patient encounter procedure 10/13/2024 10:30 AM EST Office Visit [facility] [address] [facility] [address] [place] [address] Za Hernández MD [address] [place] [address] [address] [place] [address] [facility] Start: 07-31-2024 Thyroid stimulating hormone measurement TSH Level [facility] Start: 04-21-2024 End: 04-21-2024 Patient encounter procedure 04/21/2024 10:30 AM EDT Office Visit [facility] [address] [facility] [address] [place] [address] Loulou Arreguin, POCKET ASSEMBLER-DIRECTOR OF BUSINESS DEVELOPMENT [address] [facility] [address], [address] [place] [address] [facility] Start: 03-20-2024 Patient referral [facility] Work Phone: Start: 03-20-2024 Comprehensive metabo lic 2000 panel - Serum or Plasma [facility] Start: 03-20-2024 [facility] Start: 03-20-2024 [facility] Start: 03-20-2024 [facility] Start: 03-15-2024 [facility] Start: 03-14-2024 End: 03-14-2024 [facility] Start: 03-13-2024 End: 03-13-2024 [facility] Start: 03-12-2024 [facility] Start: 03-11-2024 [facility] Start: 03-10-2024 [facility] Start: 03-09-2024 End: 03-09-2024 [facility] Start: 03-08-2024 [facility] Start: 03-07-2024 End: 03-07-2024 [facility] Start: 03-06-2024 End: 03-07-2024 [facility] Start: 03-05-2024 Referral to occupational therapist [facility] Start: 03-05-2024 Physical therapy procedure [facility] Start: 03-05-[address] [facility] Start: 03-05-2024 Referral to oncologist [facility] Start: 03-05-2024 Extraction of Iliac Bone Marrow, Percutaneous Approach, Diagnostic Extraction of Iliac Bone Marrow, Percutaneous Approach, Diagnostic [facility] Start: 03-05-2024 End: 03-06-2024 [facility] Start: 03-03-2024 [facility] Start: 11-20-2023 End: 11-20-2023 Patient encounter procedure 11/20/2023 7:00 AM EST Procedure Visit [place] [address] [address] [facility] [address] [place], [place] [id number] [facility] Start: 11-06-2023 End: 11-06-2023 Patient encounter procedure 11/06/2023 11:30 AM EST Procedure Visit [facility] [address] [place] [address] Kylee Arreguin DPM [address] [place] [address] [facility] Start: 10-22-2023 End: 10-22-2024 Comprehensive metabolic 2000 panel - Serum or Plasma Comprehensive Metabolic Panel Lab Routine Paroxysmal atrial fibrillation (CMS/HCC) Expected: 10/22/2023 (Approximate), Expires: 10/22/2024 [facility] Service Area Work Phone: Comment on above: Expected: 10/22/2023 (Approximate), Expires: 10/22/2024 Start: 10-22-2023 End: 10-22-2024 Lipid 1996 panel - Serum or Plasma Lipid Panel Lab Routine Paroxysmal atrial fibrillation (CMS/HCC) Unspecified mood (affective) disorder (CMS/HCC) Former smoker Encounter for pre-operative cardiovascular clearance Mixed hyperlipidemia Expected: 10/22/2023 (Approximate), Expires: 10/22/2024 [facility] Work Phone: Comment on above: Expected: 10/22/2023 (Approximate), Expires: 10/22/2024 Start: 09-20-2023 End: 09-20-2023 Patient encounter procedure 09/20/2023 10:30 AM EST Office Visit [facility] [address] [facility] [address] [place] [address] Za Hernández MD [address] [place] [address] [address] [place], [place] [id number] [facility] Start: 08-28-2023 End: 08-28-2023 Admission to same day surgery center 08/28/2023 11:30 AM EST - 08/28/2023 1:30 PM EST Surgery [facility] [address] [place] [phone] [place] [address] [place] [address] Left Atrial Appendage Closure [26744 (CPT )] [facility] Comment on above: Left Atrial Appendag e Closure [20195 (CPT )] Start: 08-28-2023 Subsequent hospital visit by physician 08/28/2023 11:30 AM EST Hospital Encounter [facility] [address] [place] [phone] [place] [address] [place] [address] Atrial fibrillation (CMS/HCC) [facility] Comment on above: Atrial fibrillation (CMS/HCC) Start: 08-27-2023 End: 08-27-2023 Patient encounter procedure 08/27/2023 9:30 AM EST Office Visit [facility] [address] [facility] [address] [place] [address] Za Hernández MD [address] [facility] [address] [place], [place] [id number] [facility] Start: 06-11-2023 FUV, Provider: Za Hernández, Status: Pen, Time: 10:45 AM FUV, Provider: Za Hernández, Status: Pen, Time: 10:45 AM [facility] [address] DO Work Phone: Start: 05-25-2023 COVID-19 Vaccine ( season) COVID-19 Vaccine ( season) [facility] Start: 05-25-2023 Influenza vaccination Influenza Vacc ine (#1) [facility] Start: 02-26-2023 FUV, Provider: Za Hernández, Status: Pen, Time: 11:15 AM FUV, Provider: Za Hernández, Status: Pen, Time: 11:15 AM [facility] DO Work Phone: Start: 10-09-2022 FUV, Provider: Loulou Myles, Status: Pen, Time: 12:30 PM FUV, Provider: Loulou Myles, Status: Pen, Time: 12:30 PM [facility] 250 DO Work Phone: Start: 10-02-2022 FUV, Provider: Za Hernández, Status: Pen, Time: 3:15 PM FUV, Provider: Za Hernández, Status: Pen, Time: 3:15 PM [facility] DO Work Phone: Start: 09-21-2022 FUV, Provider: Za Hernández, Status: Pen, Time: 9:45 AM FUV, Provider: Za Hernández, Status: Pen, Time: 9:45 AM [facility] DO Work Phone: Start: 09-11-2022 NURSEVST, Provider: JACQUELINE GONZALEZ RETAIL SALES REPRESENTATIVE 1,[id number], Status: Pen, Time: 1:00 PM NURSEVST, Provider: JACQUELINE GONZALEZ RETAIL SALES REPRESENTATIVE 1,[id number], Status: Pen, Time: 1:00 PM [facility] 250 DO Work Phone: Start: 08-28-2022 FUV, Provider: Za Hernández, Status: Pen, Time: 12:45 PM FUV, Provider: Za Hernández, Status: Pen, Time: 12:45 PM [facility] 250 DO Work Phone: Start: 08-10-2022 BPCHECK, Provider: Lashon GONZALEZ RETAIL SALES REPRESENTATIVE 1,[id number], Status: Pen, Time: 10:00 AM BPCHECK, Provider: JACQUELINE GONZALEZ RETAIL SALES REPRESENTATIVE 1,[id number], Status: Pen, Time: 10:00 AM [facility] 250 DO Work Phone: Start: 08-01-2022 FUV, Provider: Erick Wise, Status: Pen, Time: 9:00 AM FUV, Provider: Erick Wise, Status: Pen, Time: 9:00 AM [facility] 250 DO Work Phone: Start: 06-15-2022 FUV, Provider: Za Hernández, Status: Pen, Time: 9:45 AM FUV, Provider: Za Hernández, Status: Pen, Time: 9:45 AM [facility] 250 DO Work Phone: Start: 10-03-2021 FUV, Provider: Loulou Myles, Status: Pen, Time: 10:00 AM FUV, Provider: Loulou Myles, Status: Pen, Time: 10:00 AM [facility] 250 DO Work Phone: Start: 10-03-2021 STRESS NUC, Provider : KAYODE HHVI NUCLEAR 01,[id number], Status: Pen, Time: 8:00 AM STRESS NUC, Provider: KAYODE HHVI NUCLEAR 01,[id number], Status: Pen, Time: 8:00 AM [facility] 250 DO Work Phone: Start: 04-13-2021 End: 04-13-2021 Virtual Visit 04/13/2021 Virtual Visit Neurology Shalom Shelton MD [address] [phone] [facility] Start: 01-24-2021 COVID-19 Vaccine (2 - Booster for Christina series) COVID-19 Vaccine (2 - Booster for Christina series) [facility] Start: 12-20-2020 Creatinine measurement Creatinine mo nitoring [place], [place] Start: 12-20-2020 HbA1c (Bld) [Mass fraction] A1C test (Diabetic or Prediabetic) [place], [place] Start: 12-20-2020 Lipid panel Lipid screen [place], [place] Start: 12-20-2020 Potassium monitoring Potassium monit oring [place], [place] Start: 08-11-2020 End: 08-11-2020 Office Visit 08/11/2020 Office Visit Neurology Shalom Shelton MD [address] [phone] [facility] Start: 05-25-2020 Influenza vaccination [place], [place] Start: 12-22-2019 Annual Wellness Visi t (AWV) Annual Wellness Visit (AWV) [place], [place] Start: 12-02-2014 Zoster Vaccines (2 o f 3) Zoster Vaccines (2 of 3) [facility] Start: 2012 Abdominal aortic aneurysm screening Abdominal Aortic Aneurysm (AAA) Screening [facility] Start: 2012 Pneumococcal 65+ yea rs Vaccine (1 of 1 - PPSV23) Pneumococcal 65+ years Vaccine (1 of 1 - PPSV23) [place], [place] Start: 1997 Screening for malign ant neoplasm of colon Colon cancer screen colonoscopy [place], [place] Start: 1997 Shingles Vaccine (1 of 2) Shingles Vaccine (1 of 2) [place], [place] Start: 1969 DTaP/Tdap/Td Vaccine s (1 - Tdap) DTaP/Tdap/Td Vaccines (1 - Tdap) [facility] Start: 1966 DTaP/Tdap/Td vaccine (1 - Tdap) DTaP/Tdap/Td vaccine (1 - Tdap) [place], [place] Start: 1965 Diabetes mellitus screening Diabetes Screening [facility] Start: 1965 Hepatitis C screening Hepatitis C [facility] Start: 1947 Abdominal aortic aneurysm screening AAA screen [place], [place] Start: 1947 Hepatitis C screening Hepatitis C [place], [place] Start: 1947 Lipid panel Lipid Panel [facility] Start: 1947 Medicare Annual Wellness Visit Medicare Annual Wellness Visit (AWV) [facility] Start: 1947 Screening for malign ant neoplasm of colon [facility] Albumin/Globulin ratio [facility] Angiotensin converti ng enzyme [Enzymatic activity/volume] in Serum or Plasma [facility] Anion gap measurement [facility] End: 08-28-2023 Basic metabolic 2000 panel - Serum or Plasma Basic metabolic panel Lab STAT STAT (Lab) for 1 Occurrences starting 08/28/2023 until 08/28/2023 [facility] Service Area Work Phone: Comment on above: STAT (Lab) for 1 Occ urrences starting 08/28/2023 until 08/28/2023 End: 08-31-2023 Basic metabolic 2000 panel - Serum or Plasma Basic Metabolic Panel Lab Routine Morning draw (Lab) for 3 Occurrences starting 08/29/2023 until 08/31/2023 [facility] Work Phone: Comment on above: Morning draw (Lab) f or 3 Occurrences starting 08/29/2023 until 08/31/2023 Basophils [#/volume] in Blood by Automated count [facility] Basophils/100 leukocytes in Blood by Automated count [facility] End: 08-28-2023 CBC W Auto Differential panel - Blood CBC and Auto Differential Lab STAT STAT (Lab) for 1 Occurrences starting 08/28/2023 until 08/28/2023 [facility] Work Phone: Comment on above: STAT (Lab) for 1 Occ urrences starting 08/28/2023 until 08/28/2023 End: 08-31-2023 CBC W Auto Differential panel - Blood CBC and Auto Differential Lab Routine Morning draw (Lab) for 3 Occurrences starting 08/29/2023 until 08/31/2023 [facility] Work Phone: Comment on above: Morning draw (Lab) f or 3 Occurrences starting 08/29/2023 until 08/31/2023 Comprehensive metabo lic 2000 panel - Serum or Plasma [facility] Comprehensive metabo lic 2000 panel - Serum or Plasma [facility] Comprehensive metabo lic 2000 panel - Serum or Plasma [facility] Comprehensive metabo lic 2000 panel - Serum or Plasma [facility] Copper measurement [facility] End: 08-28-2023 ECG 12 lead [facility] Work Phone: Comment on above: Once for 1 Occurrenc es starting 08/28/2023 until 08/28/2023 As needed until disc ontinued starting 08/28/2023 End: 08-30-2023 ECG 12 lead daily ECG 12 lead daily ECG Routine Daily for 3 Days starting 08/28/2023 until 08/30/2023, 1 completed [facility] Work Phone: Comment on above: Daily for 3 Days sta rting 08/28/2023 until 08/30/2023, 1 completed Eosinophils/100 leukocytes in Blood by Automated count [facility] Erythrocyte distribution width [Ratio] by Automated count [facility] Erythrocytes [#/volu me] in Blood [facility] Globulin [Mass/volum e] in Serum [facility] End: 08-31-2023 Glucose [Mass/volume] in Serum or Plasma POCT glucose Point of Care Testing - Docked Device Routine 4 times daily before meals and at bedtime for 3 Days starting 08/28/2023 until 08/31/2023 [facility] Work Phone: Comment on above: 4 times daily before meals and at bedtime for 3 Days starting 08/28/2023 until 08/31/2023 Hematocrit [Volume Fraction] of Blood [facility] Hematocrit [Volume Fraction] of [facility] Hemoglobin [Mass/volume] in Blood [facility] Hemoglobin [Mass/volume] in Blood [facility] Hepatitis B core antibody measurement [facility] Hepatitis B virus surface Ab [Presence] in Serum [facility] End: 08-28-2023 Incentive spirometry Instruct Incentive spirometry Instruct Respiratory Care Routine Once for 1 Occurrences starting 08/28/2023 until 08/28/2023 [facility] Work Phone: Comment on above: Once for 1 Occurrenc es starting 08/28/2023 until 08/28/2023 Leukocytes [#/volume ] corrected for nucleated erythrocytes in Blood by Automated coun [facility] Leukocytes [#/volume ] in [facility] Lymphocytes [#/volum e] in Blood by Automated count [facility] Lymphocytes/100 leukocytes in Blood by Automated count [facility] End: 08-28-2023 Magnesium [Mass/volume] in Serum or Plasma Magnesium Lab STAT STAT (Lab) for 1 Occurrences starting 08/28/2023 until 08/28/2023 [facility] Work Phone: Comment on above: STAT (Lab) for 1 Occ urrences starting 08/28/2023 until 08/28/2023 End: 08-31-2023 Magnesium [Mass/volume] in Serum or Plasma Magnesium Lab Routine Morning draw (Lab) for 3 Occurrences starting 08/29/2023 until 08/31/2023 [facility] Work Phone: Comment on above: Morning draw (Lab) f or 3 Occurrences starting 08/29/2023 until 08/31/2023 MCH [Entitic mass] b y Automated count [facility] MCHC [Mass/volume] b y Automated count [facility] MCV [Entitic volume] by Automated count [facility] Monocytes [#/volume] in Blood by Automated count [facility] Monocytes/100 leukocytes in Blood by Automated count [facility] Neutrophils [#/volum e] in Blood by Automated count [facility] Neutrophils/100 leukocytes in Blood by Automated count [facility] Nucleated erythrocyt es [Presence] in Blood by Automated count [facility] Patient referral [facility] Work Phone: Platelet mean volume [Entitic volume] in Blood by Automated count [facility] Platelets [#/volume] in Blood [facility] End: 08-28-2023 Prothrombin time (PT) Protime-INR Lab STAT STAT (Lab) for 1 Occurrences starting 08/28/2023 until 08/28/2023 [facility] Work Phone: Comment on above: STAT (Lab) for 1 Occ urrences starting 08/28/2023 until 08/28/2023 End: 08-31-2023 Prothrombin time (PT) Protime-INR Lab Routine Morning draw (Lab) for 3 Occurrences starting 08/29/2023 until 08/31/2023 [facility] Work Phone: Comment on above: Morning draw (Lab) f or 3 Occurrences starting 08/29/2023 until 08/31/2023 Rheumatoid factor [Units/volume] in Serum or Plasma [facility] End: 08-28-2023 Structural heart procedure Structural heart procedure Cardiac Cath Routine Atrial fibrillation (CMS/HCC) Once for 1 Occurrences starting 08/28/2023 until 08/28/2023 [facility] Service Area Work Phone: Comment on above: Once for 1 Occurrenc es starting 08/28/2023 until 08/28/2023 Structural heart procedure Structural heart procedure Cardiac Cath Routine Atrial fibrillation (CMS/HCC) 08/28/2023 12:31 PM [facility] Work Phone: End: 08-28-2023 [facility] Work Phone: Comment on above: Once for 1 Occurrenc es starting 08/28/2023 until 08/28/2023 [facility] Problems Active Problems Problem Classification Problem [...] cardiac dysrhythmias] Episodic Coagulation and hemorrhagic disorders (20 sources) Chronic idiopathic thrombocytopenic purpura; Translations: [Immune thrombocytopenic purpura] Onset: 4 02-21-2024 Chronic Coronary atherosclerosis and other heart disease (19 sources) History of myocardial infarction; Translations: [Old myocardial infarction] Onset: 2 12-29-2019 Chronic Deficiency and other anemia (10 sources) Pancytopenia; Translations: [Other pancytopenia] 02-21-2024 Chronic Deficiency and other anemia (12 sources) Other pancytopenia; Translations: [Other pancytopenia] Onset: 4 02-21-2024 Chronic Deficiency and other anemia (12 sources) Anemia; Translations: [Anemia, unspecified] 02-21-2024 Episodic Deficiency and other anemia (12 sources) Anemia, unspecified; Translations: [Anemia, unspecified] Onset: 4 02-21-2024 Episodic Delirium, dementia, and amnestic and other cognitive disorders (10 sources) Alzheimer's disease; Translations: [Alzheimer's disease, unspecified] Onset: 4 03-07-2024 Chronic Diseases of white blood cells (15 sources) Leukopenia; Translations: [Decreased white blood cell [...] PROSTATITIS] Onset: 2 Chronic Maintenance chemotherapy; radiotherapy (9 sources) Patient encounter status; Translations: [Encounter for antineoplastic chemotherapy] Onset: 4 03-07-2024 Chronic Mood disorders (7 sources) Major depressive disorder, single episode, unspecified; Translations: [Mood disorder] Onset: 2 10-22-2023 Chronic Multiple myeloma (12 sources) Multiple myeloma; Translations: [Multiple myeloma not [...] medications] Episodic Other and unspecified benign neoplasm (18 sources) History of polyp of colon; Translations: [...] Translations: [Atrial fibrillation] Episodic Other circulatory disease (9 sources) Low blood pressure; Translations: [Hypotension, unspecified] 03-05-2024 Episodic Other circulatory disease (4 sources) Orthostatic hypotension; Translations: [Orthostatic hypotension] Episodic Other circulatory disease (6 sources) Hypotension, unspecified; Translations: [Hypotension, unspecified] Onset: [...] diseases of kidney and ureters (5 sources) Acute renal insufficiency; Translations: [Disorder of kidney and ureter, unspecified] 02-21-2024 Episodic Other diseases of kidney and ureters (12 sources) Disorder of kidney and ureter, unspecified; [...] Onset: 3 07-31-2023 Chronic Other hematologic conditions (5 sources) Protein level - finding; Translations: [Other specified abnormalities of plasma proteins] 02-21-2024 Episodic Other hematologic conditions (6 sources) Other specified abnormalities of plasma proteins; [...] Episodic Other nutritional; endocrine; and metabolic disorders (5 sources) Hypercalcemia; Translations: [Hypercalcemia] 02-27-2024 Chronic Other nutritional; endocrine; and metabolic disorders (7 sources) Hypercalcemia; Translations: [Hypercalcemia] Onset: 4 03-05-2024 [...] to d ocumentation in Social History. Syncope (10 sources) Syncope; Translations: [Syncope and collapse] 03-05-2024 [...] Onset: 06-15-2022 11-06-2022 Other aftercare (1 source) shelter (current) use of anticoagulants; Translations: [NURSING HOME CURRNT USE ANTICOAGULANTS] Onset: 09-07-2022 Episodic Other aftercare (1 source) shelter (current) use of aspirin; Translations: [CRISIS CLINICIAN CURRENT USE OF ASPIRIN] Onset: 09-07-2022 Episodic Other aftercare (1 source) Other terminal carman (current) drug therapy; Translations: [OTH NURSING HOME CURRENT DRUG THERAPY] Onset: 09-07-2022 Episodic [...] Radiologic examinati on, osseous survey, complete DO Lafayettekaterin Cooney Work Phone: Start: 03-05-2024 Antibody screen Sam Eros Comment on above: Order Comment: Trans fuse now? Y Number of units to transfuse now? 2 Result Comment: PERF ORMED BY: [facility] [address] [place] [address] PATHOLOGIST GENERAL OPHTHALMOLOGIST OTTO HARLEY M.D. Start: 03-05-2024 Stool Occult Blood (AMY) DO Lafayette Eros Work Phone: Start: 03-05-2024 Plain chest [...] 2d w/wo m-mode rec f-up/lmtd Lucas Pearce POCKET ASSEMBLER-DIRECTOR OF BUSINESS DEVELOPMENT Work Phone: Start: 08-28-2023 Ecg routine ecg w/le ast 12 lds trcg only w/o i&r Lucas Pearce POCKET ASSEMBLER-DIRECTOR OF BUSINESS DEVELOPMENT Work Phone: Start: 08-22-2023 Creatinine [Mass/vol ume] [...] 09-15-2020 CT head/brain wo con Re agan [place] Start: 02-04-2020 Ct head/brain w/o co ntrast [...] EVAL AND TREAT LESTER CHIRRI Start: 12-22-2019 HOOK AND EYE SEWING MACHINE OPERATOR EVAL AND TREAT GRAYSON L CHIRRI Start: [...] Phone: Prosthetic arthropla sty of shoulder Trung MARTY Repair of musculoten dinous cuff of shoulder Sam Cooney Work Phone: Repair of shoulder Sam Cooney Work Phone: Comment on above: 2 seperate surgeries ; Tonsillectomy and adenoidectomy Sam Cooney Work Phone: Results Test Name Value Interpretation Reference Range Facility Comprehensive Metabolic Pane melvin 03-20-2024 Albumin [Mass/Vol] 3.0 g/dL Low 3.5-5.7 [facility] Comment on above: Performed By: #### P TT, BMP, HS TROP, PT, CK, BNP, DIFF CBC #### [facility] [address] [place] [address] [place] Albumin/Globulin [Mass ratio] 0.5 {ratio} Normal [facility] Comment on above: Performed By: #### P TT, BMP, HS TROP, PT, CK, BNP, DIFF CBC #### [address] ALP [Catalytic activity/Vol] 63 U/L Normal 34-104 [facility] Comment on above: Performed By: #### P TT, BMP, HS TROP, PT, CK, BNP, DIFF CBC #### [address] ALT [Catalytic activity/Vol] 10 U/L Normal 7-52 [facility] Comment on above: Performed By: #### P TT, BMP, HS TROP, PT, CK, BNP, DIFF CBC #### [address] Anion gap [Moles/Vol] Not performed Normal 6.0-15.0 [facility] Comment on above: Performed By: #### P TT, BMP, HS TROP, PT, CK, BNP, DIFF CBC #### [address] Aspartate Amino Transferase Normal 13-39 [facility] Comment on above: Result Comment: Spec imen hemolyzed, redraw requested Performed By: #### P TT, BMP, HS TROP, PT, CK, BNP, DIFF CBC #### [address] Bilirubin [Mass/Vol] 0.4 mg/dL Normal 0.3-1.0 [facility] Comment on above: Performed By: #### P TT, BMP, HS TROP, PT, CK, BNP, DIFF CBC #### [place] [address] [place] Calcium [Mass/Vol] 9.0 mg/dL Normal 8.6-10.3 [facility] Comment on above: Performed By: #### P TT, BMP, HS TROP, PT, CK, BNP, DIFF CBC #### [place] [address] [place] Chloride [Moles/Vol] 103 mmol/L Normal 98-107 [facility] Comment on above: Performed By: #### P TT, BMP, HS TROP, PT, CK, BNP, DIFF CBC #### [address] CO2 [Moles/Vol] 24.1 mmol/L Normal 21.0-31.0 [facility] Comment on above: Performed By: #### P TT, BMP, HS TROP, PT, CK, BNP, DIFF CBC #### [address] Creatinine [Mass/Vol] 1.18 mg/dL Normal 0.70-1.30 [facility] Comment on above: Performed By: #### P TT, BMP, HS TROP, PT, CK, BNP, DIFF CBC #### [address] Creatinine Clr Calc Pharmacy 53.26 Normal [facility] Comment on above: Result Comment: PERF ORMED BY: [place] [address] PATHOLOGIST GENERAL OPHTHALMOLOGIST OTTO HARLEY M.D. Performed By: #### P TT, BMP, HS TROP, PT, CK, BNP, DIFF CBC #### [address] GFR/1.73 sq M.predicted MDRD (S/P/Bld) [Vol rate/Area] mL/min/{1.73_m2} Normal [facility] Comment on above: Performed By: #### P TT, BMP, HS TROP, PT, CK, BNP, DIFF CBC #### [address] Globulin (S) [Mass/Vol] 5.7 g/dL Normal [facility] Comment on above: Performed By: #### P TT, BMP, HS TROP, PT, CK, BNP, DIFF CBC #### [address] Glucose [Mass/Vol] 103 mg/dL High 70-100 [facility] Comment on above: Result Comment: [facility] Glucose Reference Range is dependent on time and content of last meal. Glucose of more than 200 mg/dL in a nonstressed, ambulatory subject supports the diagnosis of Diabetes Mellitus. ADA recommended reference range Performed By: #### P TT, BMP, HS TROP, PT, CK, BNP, DIFF CBC #### [address] Potassium Normal 3.5-5.1 [facility] Comment on above: Result Comment: Spec imen hemolyzed, redraw requested Performed By: #### P TT, BMP, HS TROP, PT, CK, BNP, DIFF CBC #### [address] Protein [Mass/Vol] 8.7 g/dL Normal 6.4-8.9 [facility] Comment on above: Performed By: #### P TT, BMP, HS TROP, PT, CK, BNP, DIFF CBC #### [address] Sodium [Moles/Vol] 136 mmol/L Normal 136-145 [facility] Comment on above: Performed By: #### P TT, BMP, HS TROP, PT, CK, BNP, DIFF CBC #### [address] Urea nitrogen [Mass/Vol] 19 mg/dL Normal 7-25 [facility] Comment on above: Performed By: #### P TT, BMP, HS TROP, PT, CK, BNP, DIFF CBC #### [address] Daratumumab Molecular Genoty peon 03-20-2024 Daratumumab Molecular Genotype Normal [facility] Comment on above: Result Comment: Sent to [facility] for further testing. Final report to follow. PERFORMED BY: [place] [address] PATHOLOGIST GENERAL OPHTHALMOLOGIST OTTO HARLEY M.D. Diff and CBCon 03-20-2024 Anisocytosis Ql (Bld) Slight Normal [facility] Comment on above: Performed By: #### P TT, BMP, HS TROP, PT, CK, BNP, DIFF CBC #### [address] Band form neutrophils/100 WBC (Bld) 2 % Normal 0-5 [facility] Comment on above: Performed By: #### P TT, BMP, HS TROP, PT, CK, BNP, DIFF CBC #### [address] Eosinophils/100 WBC (Bld) 5 % High 1-3 [facility] Comment on above: Performed By: #### P TT, BMP, HS TROP, PT, CK, BNP, DIFF CBC #### [address] Erythrocyte distribution width (RBC) [Ratio] 20.6 % High 12.0-14.8 [facility] Comment on above: Performed By: #### P TT, BMP, HS TROP, PT, CK, BNP, DIFF CBC #### [address] Giant Platelet Tally 1 /100{WBC} Normal [facility] Comment on above: Performed By: #### P TT, BMP, HS TROP, PT, CK, BNP, DIFF CBC #### [address] Hematocrit (Bld) [Volume fraction] 26.3 % Low 38.8-50.0 [facility] Comment on above: Performed By: #### P TT, BMP, HS TROP, PT, CK, BNP, DIFF CBC #### [address] Hemoglobin (Bld) [Mass/Vol] 9.1 g/dL Low 13.0-17.0 [facility] Comment on above: Performed By: #### P TT, BMP, HS TROP, PT, CK, BNP, DIFF CBC #### [address] Lymphocytes/100 WBC (Bld) 63 % High 18-42 [facility] Comment on above: Performed By: #### P TT, BMP, HS TROP, PT, CK, BNP, DIFF CBC #### [address] MCH (RBC) [Entitic mass] 34.1 pg Normal 27.5-35.2 [facility] Comment on above: Performed By: #### P TT, BMP, HS TROP, PT, CK, BNP, DIFF CBC #### [address] MCV (RBC) [Entitic vol] 98.6 fL Normal 83.5-101 [facility] Comment on above: Performed By: #### P TT, BMP, HS TROP, PT, CK, BNP, DIFF CBC #### [address] Mean Corpuscular HGB Conc 34.6 g/dL Normal 32.5-35.6 [facility] Comment on above: Performed By: #### P TT, BMP, HS TROP, PT, CK, BNP, DIFF CBC #### [address] Platelet Estimate Decreased Normal Normal [facility] Comment on above: Performed By: #### P TT, BMP, HS TROP, PT, CK, BNP, DIFF CBC #### [address] Platelet mean volume (Bld) [Entitic vol] 8.5 fL Normal 6.6-10.1 [facility] Comment on above: Result Comment: PERF ORMED BY: [place] [address] PATHOLOGIST GENERAL OPHTHALMOLOGIST OTTO HARLEY M.D. Performed By: #### P TT, BMP, HS TROP, PT, CK, BNP, DIFF CBC #### [address] Platelet Morphology Normal Normal Normal [facility] Comment on above: Result Comment: PERF ORMED BY: [place] [address] PATHOLOGIST GENERAL OPHTHALMOLOGIST OTTO HARLEY M.D. Performed By: #### P TT, BMP, HS TROP, PT, CK, BNP, DIFF CBC #### [address] Platelets (Bld) [#/Vol] 81 10*3/uL Low 150-450 [facility] Comment on above: Performed By: #### P TT, BMP, HS TROP, PT, CK, BNP, DIFF CBC #### [address] Poikilocytosis Slight Normal [facility] Comment on above: Performed By: #### P TT, BMP, HS TROP, PT, CK, BNP, DIFF CBC #### [address] Polychromasia Slight Normal [facility] Comment on above: Performed By: #### P TT, BMP, HS TROP, PT, CK, BNP, DIFF CBC #### [address] RBC (Bld) [#/Vol] 2.67 10*6/uL Low 3.90-5.60 [facility] Comment on above: Performed By: #### P TT, BMP, HS TROP, PT, CK, BNP, DIFF CBC #### [address] Reactive Lymphocytes 1 % Normal 0-12 [facility] Comment on above: Performed By: #### P TT, BMP, HS TROP, PT, CK, BNP, DIFF CBC #### [address] Rouleaux Slight Normal [facility] Comment on above: Performed By: #### P TT, BMP, HS TROP, PT, CK, BNP, DIFF CBC #### [address] Segmented neutrophils/100 WBC (Bld) 30 % Low 50-70 [facility] Comment on above: Performed By: #### P TT, BMP, HS TROP, PT, CK, BNP, DIFF CBC #### [address] WBC (Bld) [#/Vol] 1.8 10*3/uL Low 4.1-10.5 [facility] Comment on above: Performed By: #### P TT, BMP, HS TROP, PT, CK, BNP, DIFF CBC #### [facility] [address] [place] [address] [place] Alanine aminotransferase [En zymatic activity/volume] in Serum or PlasmaOrdered By: Vijay Aguilar on 03-09-2024 ALT [Catalytic activity/Vol] 10 U/L Normal 7-52 [facility] Comment on above: Performed By: #### P TT, BMP, HS TROP, PT, CK, BNP, DIFF CBC #### [facility] [address] [place] [address] [place] Albumin [Mass/volume] in Ser um or Plasma by Bromocresol green (BCG) dye binding methoOrdered By: Vijay Aguilar on 03-09-2024 Albumin BCG dye [Mass/Vol] 2.7 g/dL Low 3.5-5.7 [facility] Alkaline phosphatase [Enzyma tic activity/volume] in Serum or PlasmaOrdered By: Vijay Aguilar on 03-09-2024 ALP [Catalytic activity/Vol] 50 U/L Normal 34-104 [facility] Comment on above: Performed By: #### P TT, BMP, HS TROP, PT, CK, BNP, DIFF CBC #### [place] [address] [place] Anisocytosis [Presence] in B lood by Light microscopyOrdered By: Roslyn Townsend on 03-09-2024 Anisocytosis Ql (Bld) Slight Normal [facility] Comment on above: Performed By: #### P TT, BMP, HS TROP, PT, CK, BNP, DIFF CBC #### [facility] [address] [place] [address] [place] Aspartate aminotransferase [ Enzymatic activity/volume] in Serum or PlasmaOrdered By: Vijay Aguilar on 03-09-2024 AST [Catalytic activity/Vol] 11 U/L Low 13-39 [facility] Comment on above: Performed By: #### P TT, BMP, HS TROP, PT, CK, BNP, DIFF CBC #### [facility] [address] [place] [address] [place] Basophils Auto (Bld) [#/Vol] Ordered By: Roslyn Townsend on 03-09-2024 Basophils (Bld) [#/Vol] N/A [facility] Basophils/100 WBC Auto (Bld) Ordered By: Roslyn Townsend on 03-09-2024 Basophils/100 WBC (Bld) N/A [facility] Basophils/100 leukocytes in Blood by Manual countOrdered By: Roslyn Townsend on 03-09-2024 Basophils/100 WBC (Bld) 0 % Normal 0-2 [facility] Comment on above: Performed By: #### P TT, BMP, HS TROP, PT, CK, BNP, DIFF CBC #### [facility] [address] [place] [address] Bilirubin.total [Mass/volume ] in Serum or PlasmaOrdered By: Vijay Aguilar on 03-09-2024 Bilirubin [Mass/Vol] 0.5 mg/dL Normal 0.3-1.0 [facility] Comment on above: Performed By: #### P TT, BMP, HS TROP, PT, CK, BNP, DIFF CBC #### [facility] [address] [place] [place] [address] [place] Calcium [Mass/volume] in Ser um or PlasmaOrdered By: Vijay Aguilar on 03-09-2024 Calcium [Mass/Vol] 7.7 mg/dL Low 8.6-10.3 [facility] Comment on above: Performed By: #### P TT, BMP, HS TROP, PT, CK, BNP, DIFF CBC #### [facility] [address] [place] [place] [address] [place] Carbon dioxide, total [Moles /volume] in Serum or PlasmaOrdered By: Vijay Lauren on 03-09-2024 CO2 [Moles/Vol] 19.1 mmol/L Low 21.0-31.0 [facility] Comment on above: Performed By: #### P TT, BMP, HS TROP, PT, CK, BNP, DIFF CBC #### [facility] [address] [place] [place] [address] [place] Chloride [Moles/volume] in S dustin or PlasmaOrdered By: Vijay Aguilar on 03-09-2024 Chloride [Moles/Vol] 107 mmol/L Normal 98-107 [facility] Comment on above: Performed By: #### P TT, BMP, HS TROP, PT, CK, BNP, DIFF CBC #### [facility] [address] Comprehensive Metabolic Pane melvin 03-09-2024 Albumin [Mass/Vol] 2.7 g/dL Low 3.5-5.7 [facility] Comment on above: Performed By: #### P TT, BMP, HS TROP, PT, CK, BNP, DIFF CBC #### [address] Creatinine Clr Calc Pharmacy 59.85 Normal [facility] Comment on above: Performed By: #### P TT, BMP, HS TROP, PT, CK, BNP, DIFF CBC #### [address] GFR/1.73 sq M.predicted MDRD (S/P/Bld) [Vol rate/Area] mL/min/{1.73_m2} Normal [facility] Comment on above: Performed By: #### P TT, BMP, HS TROP, PT, CK, BNP, DIFF CBC #### [address] Creatinine [Mass/volume] in Serum or PlasmaOrdered By: Vijay Aguilar on 03-09-2024 Creatinine [Mass/Vol] 1.05 mg/dL Normal 0.70-1.30 [facility] Comment on above: Performed By: #### P TT, BMP, HS TROP, PT, CK, BNP, DIFF CBC #### [place] [address] [place] Diff and CBCon 03-09-2024 Macrocytosis Slight Normal [facility] Comment on above: Performed By: #### P TT, BMP, HS TROP, PT, CK, BNP, DIFF CBC #### [address] Mean Corpuscular HGB Conc 35.4 g/dL Normal 32.5-35.6 [facility] Comment on above: Performed By: #### P TT, BMP, HS TROP, PT, CK, BNP, DIFF CBC #### [address] Other Cell Type 5 % High 0-0 [facility] Comment on above: Result Comment: PLAS MACYTOID LYMPHOCYTE Performed By: #### P TT, BMP, HS TROP, PT, CK, BNP, DIFF CBC #### [address] Platelet Estimate Decreased Normal Normal [facility] Comment on above: Performed By: #### P TT, BMP, HS TROP, PT, CK, BNP, DIFF CBC #### [address] Platelet Morphology Normal Normal Normal [facility] Comment on above: Result Comment: PERF ORMED BY: [place] [address] PATHOLOGIST GENERAL OPHTHALMOLOGIST OTTO HARLEY M.D. Performed By: #### P TT, BMP, HS TROP, PT, CK, BNP, DIFF CBC #### [address] Poikilocytosis Slight Normal [facility] Comment on above: Performed By: #### P TT, BMP, HS TROP, PT, CK, BNP, DIFF CBC #### [address] Rouleaux Moderate Normal [facility] Comment on above: Performed By: #### P TT, BMP, HS TROP, PT, CK, BNP, DIFF CBC #### [address] Eosinophils Auto (Bld) [#/Vo l]Ordered By: Roslyn Townsend on 03-09-2024 Eosinophils (Bld) [#/Vol] N/A [facility] Eosinophils/100 WBC Auto (Bl d)Ordered By: Roslyn Townsend on 03-09-2024 Eosinophils/100 WBC (Bld) N/A [facility] Eosinophils/100 leukocytes i n Blood by Manual countOrdered By: Roslyn Townsend on 03-09-2024 Eosinophils/100 WBC (Bld) 3 % Normal 1-3 [facility] Comment on above: Performed By: #### P TT, BMP, HS TROP, PT, CK, BNP, DIFF CBC #### [facility] [address] Erythrocyte distribution wid th [Ratio] by Automated countOrdered By: Roslyn Townsend on 03-09-2024 Erythrocyte distribution width (RBC) [Ratio] 20.7 % High 12.0-14.8 [facility] Comment on above: Performed By: #### P TT, BMP, HS TROP, PT, CK, BNP, DIFF CBC #### [facility] [address] Erythrocytes [#/volume] in B lood by Automated countOrdered By: Roslyn Townsend on 03-09-2024 RBC (Bld) [#/Vol] 2.68 10*6/uL Low 3.90-5.60 [facility] Comment on above: Performed By: #### P TT, BMP, HS TROP, PT, CK, BNP, DIFF CBC #### [facility] [address] Glucose [Mass/volume] in Ser um or PlasmaOrdered By: Vijay Aguilar on 03-09-2024 Glucose [Mass/Vol] 97 mg/dL Normal 70-100 [facility] Comment on above: ADA recommended refe rence rangeRandom Glucose Reference Range is dependent on time and content of last meal. Glucose of more than 200 mg/dL in a nonstressed, ambulatory subject supports the diagnosis of Diabetes Mellitus. Result Comment: [facility] om Glucose Reference Range is dependent on time and content of last meal. Glucose of more than 200 mg/dL in a nonstressed, ambulatory subject supports the diagnosis of Diabetes Mellitus. ADA recommended reference range Performed By: #### P TT, BMP, HS TROP, PT, CK, BNP, DIFF CBC #### [place] [address] [place] Hematocrit [Volume Fraction] of Blood by Automated countOrdered By: Kathleenlatrice Kristian on 03-09-2024 Hematocrit (Bld) [Volume fraction] 26.1 % Low 38.8-50.0 [facility] Comment on above: Performed By: #### P TT, BMP, HS TROP, PT, CK, BNP, DIFF CBC #### [facility] [address] Hemoglobin [Mass/volume] in BloodOrdered By: Roslyn Townsend on 03-09-2024 Hemoglobin (Bld) [Mass/Vol] 9.2 g/dL Low 13.0-17.0 [facility] Comment on above: Performed By: #### P TT, BMP, HS TROP, PT, CK, BNP, DIFF CBC #### [facility] [address] [place] [id number] [place] Melvin 03-09-2024 L Specimen: [id number] Re ceived: 03/09/24 Status: SOUT Req Num: [id number] Spec Type: Impression Subm Dr: Vijay Aguilar MD Tissues: PATHPER Procedures: PATHREVIEW Age/ Patient Sex Location Account Attending Physician Neil Wilcox 78/M [id number] Vijay Aguilar MD SPEC NUM: [id number] RECD: 03/09/24 STATUS: URVASHI REQ NUM: [id number] MOE: 03/09/24- SUBM DR: Vijay Aguilar MD ENTERED: 03/09/[address] [facility] DR: SPEC TYPE: Impression DEPT: [place] ORDERED: PATHREVIEW ORDERED: PATHREVIEW Pathologist Review Abnormal [...] partly the cause of progressing pancytopenia CPT: 40257 CBC Date Time Test Result Flag (u) Normal Range 03/06/24 0753 Band 1 0-5 % 03/08/24 0551 Neut % (Auto) 57.3 . % Lymp % (Auto) 38.4 . % Daniels % (Auto) 1.0 . % Eos % (Auto) 0.1 . % Baso % (Auto) 3.2 . % NRBC% 0.3 0-0.5 /100 WBC Specimen: [id number] Received: 03/09/24-4 Status: URVASHI Gomez Num: [id number] Spec Type: Impression Subm Dr: Vijay Aguilar MD Tissues: PATHPER Procedures: PATHREVIEW Patient: Neil Wilcox [id number] (Continued) Specimen: [id number] Received: 03/09/24-1014 (Continued) CBC (Continued) Signed (signature on file) Chaitanya Paulino MD 03/11/24 1130 Specimen: [id number] Received: 03/09/24-1013 Status: URVASHI Gomez Num: [id number] Spec Type: Impression Subm Dr: Vijay Aguilar MD Tissues: PATHPER Procedures: PATHREVIEW Patient: Neil Wilcox [id number] (Continued) Specimen: [id number] Received: 03/09/24-1013 (Continued) CBC (Continued) Neut # (Auto) 1.1 L 1.8-7.7 x10E3/uL Lymph # (Auto) 0.7 L 1.00-4.8 x10E3/uL Daniels # (Auto) 0.0 0.0-0.8 x10E3/uL Eos # [...] 50-70 % Lymph 57 H 18-42 % Daniels 0 L 2-11 % Eos 3 1-3 % Baso 0 0-2 % Other Cell Type 5 H 0-0 % PLASMACYTOID LYMPHOCYTE Poik Slight Aniso Slight Macro Slight Rouleaux Moderate Plt Est Decreased Normal Plt Morphology Normal Normal Specimen: [id number] Received: 03/09/24 Status: URVASHI Ruth Num: [id number] Spec Type: Impression Leonard Dr: Vijay Aguilar MD Tissues: PATHPER Procedures: PATHREVIEW Patient: Neil Wilcox [id number] (Continued) Signed (signature on file) Chin-Emilio Paulino MD 03/11/24 1130 Normal [facility] Leukocytes [#/volume] correc myrtle for nucleated erythrocytes in Blood by Automated counOrdered By: Roslyn Townsend on 03-09-2024 WBC corrected for nucl RBC Auto (Bld) [#/Vol] 2.8 10*3/uL Low 4.1-10.5 [facility] Leukocytes [#/volume] in Blo od by Automated countOrdered By: Roslyn Townsend on 03-09-2024 WBC (Bld) [#/Vol] 2.8 10*3/uL Low 4.1-10.5 [facility] Comment on above: Performed By: #### P TT, BMP, HS TROP, PT, CK, BNP, DIFF CBC #### [facility] [address] Lymphocytes Auto (Bld) [#/Vo l]Ordered By: Roslyn Townsend on 03-09-2024 Lymphocytes (Bld) [#/Vol] N/A [facility] Lymphocytes/100 WBC Auto (Bl d)Ordered By: Roslyn Townsend on 03-09-2024 Lymphocytes/100 WBC (Bld) N/A [facility] Lymphocytes/100 leukocytes i n Blood by Manual countOrdered By: Roslyn Townsend on 03-09-2024 Lymphocytes/100 WBC (Bld) 57 % High 18-42 [facility] Comment on above: Performed By: #### P TT, BMP, HS TROP, PT, CK, BNP, DIFF CBC #### [facility] [address] [place] [address] MCH [Entitic mass] by Automa myrtle countOrdered By: Roslyn Townsend on 03-09-2024 MCH (RBC) [Entitic mass] 34.4 pg Normal 27.5-35.2 [facility] Comment on above: Performed By: #### P TT, BMP, HS TROP, PT, CK, BNP, DIFF CBC #### [facility] [address] [place] [address] MCHC Auto (RBC) [Mass/Vol]Or dered By: Roslyn Townsend on 03-09-2024 MCHC (RBC) [Mass/Vol] 35.4 g/dL 32.5-35.6 [facility] MCV [Entitic volume] by Auto mated countOrdered By: Roslyn Townsend on 03-09-2024 MCV (RBC) [Entitic vol] 97.2 fL Normal 83.5-101 [facility] Comment on above: Performed By: #### P TT, BMP, HS TROP, PT, CK, BNP, DIFF CBC #### [address] Macrocytes LM Ql (Bld)Ordere d By: Roslyn Townsend on 03-09-2024 Macrocytes Ql (Bld) Slight [facility] Magnesium [Mass/volume] in S dustin or PlasmaOrdered By: Vijay Aguilar on 03-09-2024 Magnesium [Mass/Vol] 1.7 mg/dL Low 1.9-2.7 [facility] Comment on above: Result Comment: PERF ORMED BY: [place] [address] PATHOLOGIST GENERAL OPHTHALMOLOGIST OTTO HARLEY M.D. Performed By: #### P TT, BMP, HS TROP, PT, CK, BNP, DIFF CBC #### [address] Manual blood segmented neutr ophils/100 leukocytesOrdered By: Roslyn Townsend on 03-09-2024 Segmented neutrophils/100 WBC (Bld) 35 % Low 50-70 [facility] Comment on above: Performed By: #### P TT, BMP, HS TROP, PT, CK, BNP, DIFF CBC #### [facility] [address] [place] [address] [place] Monocytes Auto (Bld) [#/Vol] Ordered By: Roslyn Townsend on 03-09-2024 Monocytes (Bld) [#/Vol] N/A [facility] Monocytes/100 WBC Auto (Bld) Ordered By: Roslyn Townsend on 03-09-2024 Monocytes/100 WBC (Bld) N/A [facility] Monocytes/100 leukocytes in Blood by Manual countOrdered By: Roslyn Townsend on 03-09-2024 Monocytes/100 WBC (Bld) 0 % Low 2-11 [facility] Comment on above: Performed By: #### P TT, BMP, HS TROP, PT, CK, BNP, DIFF CBC #### [facility] [address] [place] [address] [place] Neutrophils Auto (Bld) [#/Vo l]Ordered By: Roslyn Townsend on 03-09-2024 Neutrophils (Bld) [#/Vol] N/A [facility] Neutrophils/100 WBC Auto (Bl d)Ordered By: Roslyn Townsend on 03-09-2024 Neutrophils/100 WBC (Bld) N/A [facility] No Panel InformationOrdered By: Vijay Aguilar on 03-09-2024 Estimated GFR (CKD-EPI) > 60.0 mL/Min [facility] Creatinine Clearance (Chem 59.85 [facility] Nucleated erythrocytes [Pres ence] in Blood by Automated countOrdered By: Roslyn Townsend on 03-09-2024 Nucleated RBC Auto Ql (Bld) N/A [facility] Platelet adequacy [Presence] in Blood by Light microscopyOrdered By: Roslyn Townsend on 03-09-2024 Platelets LM Ql (Bld) Decreased Normal [facility] Platelet mean volume [Entiti c volume] in Blood by Automated countOrdered By: Roslyn Townsend on 03-09-2024 Platelet mean volume (Bld) [Entitic vol] 7.4 fL Normal 6.6-10.1 [facility] Comment on above: Performed By: #### P TT, BMP, HS TROP, PT, CK, BNP, DIFF CBC #### [facility] [address] Platelet morphology finding [Identifier] in BloodOrdered By: Roslyn Townsend on 03-09-2024 Platelet morphology finding Nom (Bld) Normal Normal [facility] Platelets [#/volume] in Bloo d by Automated countOrdered By: Roslyn Townsend on 03-09-2024 Platelets (Bld) [#/Vol] 62 10*3/uL Low 150-450 [facility] Comment on above: Performed By: #### P TT, BMP, HS TROP, PT, CK, BNP, DIFF CBC #### [address] Poikilocytosis [Presence] in Blood by Light microscopyOrdered By: Roslyn Townsend on 03-09-2024 Poikilocytosis LM Ql (Bld) Slight [facility] Potassium [Moles/volume] in Serum or PlasmaOrdered By: Vijay Aguilar on 03-09-2024 Potassium [Moles/Vol] 3.3 mmol/L Low 3.5-5.1 [facility] Comment on above: Performed By: #### P TT, BMP, HS TROP, PT, CK, BNP, DIFF CBC #### [address] Protein [Mass/volume] in Ser um or PlasmaOrdered By: Vijay Aguilar on 03-09-2024 Protein [Mass/Vol] 7.8 g/dL Normal 6.4-8.9 [facility] Comment on above: Performed By: #### P TT, BMP, HS TROP, PT, CK, BNP, DIFF CBC #### [facility] [address] [place] [address] RBC morphologyOrdered By: Kathleen Townsend on 03-09-2024 RBC morphology finding Nom (Bld) N/A [facility] Rouleaux detectionOrdered By : Roslyn Townsend on 03-09-2024 Rouleaux LM Ql (Bld) Moderate [facility] Serum globulin measurement b y calculation (mass/volume)Ordered By: Vijaygeorgette Aguilar on 03-09-2024 Globulin (S) [Mass/Vol] 5.1 g/dL [facility] Comment on above: Performed By: #### P TT, BMP, HS TROP, PT, CK, BNP, DIFF CBC #### [address] Serum or plasma albumin/glob ulin mass ratioOrdered By: Vijay Lauren on 03-09-2024 Albumin/Globulin [Mass ratio] 0.5 {ratio} [facility] Comment on above: Performed By: #### P TT, BMP, HS TROP, PT, CK, BNP, DIFF CBC #### [address] Serum or plasma anion gap de terminationOrdered By: Vijay Aguilar on 03-09-2024 Anion gap [Moles/Vol] 13.2 mmol/L Normal 6.0-15.0 [facility] Comment on above: Performed By: #### P TT, BMP, HS TROP, PT, CK, BNP, DIFF CBC #### [address] Sodium [Moles/volume] in Ser um or PlasmaOrdered By: Vijay Aguilar on 03-09-2024 Sodium [Moles/Vol] 136 mmol/L Normal 136-145 [facility] Comment on above: Performed By: #### P TT, BMP, HS TROP, PT, CK, BNP, DIFF CBC #### [address] Urea nitrogen [Mass/volume] in Serum or PlasmaOrdered By: Vijay Lauren on 03-09-2024 Urea nitrogen [Mass/Vol] 18 mg/dL Normal 7-25 [facility] Comment on above: Performed By: #### P TT, BMP, HS TROP, PT, CK, BNP, DIFF CBC #### [address] WBC other/100 WBC Manual cnt (Bld)Ordered By: Roslyn Townsend on 03-09-2024 WBC other/100 WBC (Bld) 5 % High 0-0 [facility] Comment on above: PLASMACYTOID LYMPHOC YTE Basic Metabolic Panelon 02-22 Anion gap [Moles/Vol] 13.2 mmol/L Normal 6.0-15.0 [facility] Comment on above: Performed By: #### P TT, BMP, HS TROP, PT, CK, BNP, DIFF CBC #### [facility] [address] [place] [address] [place] Calcium [Mass/Vol] 7.9 mg/dL Low 8.6-10.3 [facility] Comment on above: Performed By: #### P TT, BMP, HS TROP, PT, CK, BNP, DIFF CBC #### [place] [address] [place] Chloride [Moles/Vol] 106 mmol/L Normal 98-107 [facility] Comment on above: Performed By: #### P TT, BMP, HS TROP, PT, CK, BNP, DIFF CBC #### [facility] [address] [place] [address] [place] CO2 [Moles/Vol] 18.6 mmol/L Low 21.0-31.0 [facility] Comment on above: Performed By: #### P TT, BMP, HS TROP, PT, CK, BNP, DIFF CBC #### [place] [address] [place] Creatinine [Mass/Vol] 1.01 mg/dL Normal 0.70-1.30 [facility] Comment on above: Performed By: #### P TT, BMP, HS TROP, PT, CK, BNP, DIFF CBC #### [facility] [address] [place] [address] [place] Creatinine Clr Calc Pharmacy 62.22 Normal [facility] Comment on above: Result Comment: PERF ORMED BY: [place] [address] PATHOLOGIST GENERAL OPHTHALMOLOGIST OTTO HARLEY M.D. Performed By: #### P TT, BMP, HS TROP, PT, CK, BNP, DIFF CBC #### [address] GFR/1.73 sq M.predicted MDRD (S/P/Bld) [Vol rate/Area] mL/min/{1.73_m2} Normal [facility] Comment on above: Performed By: #### P TT, BMP, HS TROP, PT, CK, BNP, DIFF CBC #### [address] Glucose [Mass/Vol] 136 mg/dL High 70-100 [facility] Comment on above: Result Comment: [facility] Glucose Reference Range is dependent on time and content of last meal. Glucose of more than 200 mg/dL in a nonstressed, ambulatory subject supports the diagnosis of Diabetes Mellitus. ADA recommended reference range Performed By: #### P TT, BMP, HS TROP, PT, CK, BNP, DIFF CBC #### [address] Potassium [Moles/Vol] 3.8 mmol/L Normal 3.5-5.1 [facility] Comment on above: Performed By: #### P TT, BMP, HS TROP, PT, CK, BNP, DIFF CBC #### [address] Sodium [Moles/Vol] 134 mmol/L Low 136-145 [facility] Comment on above: Performed By: #### P TT, BMP, HS TROP, PT, CK, BNP, DIFF CBC #### [address] Urea nitrogen [Mass/Vol] 21 mg/dL Normal 7-25 [facility] Comment on above: Performed By: #### P TT, BMP, HS TROP, PT, CK, BNP, DIFF CBC #### [address] Complete Blood Count Auto Di ffon 03-08-2024 Basophils (Bld) [#/Vol] 0.1 10*3/uL Normal 0.0-0.2 [facility] Comment on above: Result Comment: PERF ORMED BY: [place] [address] PATHOLOGIST GENERAL OPHTHALMOLOGIST OTTO HARLEY M.D. Performed By: #### P TT, BMP, HS TROP, PT, CK, BNP, DIFF CBC #### [address] Basophils/100 WBC (Bld) 3.2 % Normal . [facility] Comment on above: Performed By: #### P TT, BMP, HS TROP, PT, CK, BNP, DIFF CBC #### [address] Eosinophils (Bld) [#/Vol] 0.0 10*3/uL Normal 0.0-0.45 [facility] Comment on above: Performed By: #### P TT, BMP, HS TROP, PT, CK, BNP, DIFF CBC #### [address] Eosinophils/100 WBC (Bld) 0.1 % Normal . [facility] Comment on above: Performed By: #### P TT, BMP, HS TROP, PT, CK, BNP, DIFF CBC #### [address] Erythrocyte distribution width (RBC) [Ratio] 20.9 % High 12.0-14.8 [facility] Comment on above: Performed By: #### P TT, BMP, HS TROP, PT, CK, BNP, DIFF CBC #### [address] Hematocrit (Bld) [Volume fraction] 27.2 % Low 38.8-50.0 [facility] Comment on above: Performed By: #### P TT, BMP, HS TROP, PT, CK, BNP, DIFF CBC #### [address] Hemoglobin (Bld) [Mass/Vol] 9.5 g/dL Low 13.0-17.0 [facility] Comment on above: Performed By: #### P TT, BMP, HS TROP, PT, CK, BNP, DIFF CBC #### [address] Lymphocytes (Bld) [#/Vol] 0.7 10*3/uL Low 1.00-4.8 [facility] Comment on above: Performed By: #### P TT, BMP, HS TROP, PT, CK, BNP, DIFF CBC #### [address] Lymphocytes/100 WBC (Bld) 38.4 % Normal . [facility] Comment on above: Performed By: #### P TT, BMP, HS TROP, PT, CK, BNP, DIFF CBC #### [address] MCH (RBC) [Entitic mass] 33.9 pg Normal 27.5-35.2 [facility] Comment on above: Performed By: #### P TT, BMP, HS TROP, PT, CK, BNP, DIFF CBC #### [address] MCV (RBC) [Entitic vol] 97.4 fL Normal 83.5-101 [facility] Comment on above: Performed By: #### P TT, BMP, HS TROP, PT, CK, BNP, DIFF CBC #### [address] Mean Corpuscular HGB Conc 34.8 g/dL Normal 32.5-35.6 [facility] Comment on above: Performed By: #### P TT, BMP, HS TROP, PT, CK, BNP, DIFF CBC #### [address] Monocytes (Bld) [#/Vol] 0.0 10*3/uL Normal 0.0-0.8 [facility] Comment on above: Performed By: #### P TT, BMP, HS TROP, PT, CK, BNP, DIFF CBC #### [address] Monocytes/100 WBC (Bld) 1.0 % Normal . [facility] Comment on above: Performed By: #### P TT, BMP, HS TROP, PT, CK, BNP, DIFF CBC #### [address] Neutrophils (Bld) [#/Vol] 1.1 10*3/uL Low 1.8-7.7 [facility] Comment on above: Performed By: #### P TT, BMP, HS TROP, PT, CK, BNP, DIFF CBC #### [address] Neutrophils/100 WBC (Bld) 57.3 % Normal . [facility] Comment on above: Performed By: #### P TT, BMP, HS TROP, PT, CK, BNP, DIFF CBC #### [address] NRBC% 0.3 /100{WBC} Normal 0-0.5 [facility] Comment on above: Performed By: #### P TT, BMP, HS TROP, PT, CK, BNP, DIFF CBC #### [address] Platelet mean volume (Bld) [Entitic vol] 7.3 fL Normal 6.6-10.1 [facility] Comment on above: Performed By: #### P TT, BMP, HS TROP, PT, CK, BNP, DIFF CBC #### [address] Platelets (Bld) [#/Vol] 59 10*3/uL Low 150-450 [facility] Comment on above: Performed By: #### P TT, BMP, HS TROP, PT, CK, BNP, DIFF CBC #### [address] RBC (Bld) [#/Vol] 2.79 10*6/uL Low 3.90-5.60 [facility] Comment on above: Performed By: #### P TT, BMP, HS TROP, PT, CK, BNP, DIFF CBC #### [address] WBC (Bld) [#/Vol] 1.8 10*3/uL Low 4.1-10.5 [facility] Comment on above: Performed By: #### P TT, BMP, HS TROP, PT, CK, BNP, DIFF CBC #### [address] Basic Metabolic Panelon 02-22 Anion gap [Moles/Vol] 12.4 mmol/L Normal 6.0-15.0 [facility] Comment on above: Performed By: #### P TT, BMP, HS TROP, PT, CK, BNP, DIFF CBC #### [address] Calcium [Mass/Vol] 8.3 mg/dL Low 8.6-10.3 [facility] Comment on above: Performed By: #### P TT, BMP, HS TROP, PT, CK, BNP, DIFF CBC #### [address] Chloride [Moles/Vol] 107 mmol/L Normal 98-107 [facility] Comment on above: Performed By: #### P TT, BMP, HS TROP, PT, CK, BNP, DIFF CBC #### [address] CO2 [Moles/Vol] 20.5 mmol/L Low 21.0-31.0 [facility] Comment on above: Performed By: #### P TT, BMP, HS TROP, PT, CK, BNP, DIFF CBC #### [address] Creatinine [Mass/Vol] 1.02 mg/dL Normal 0.70-1.30 [facility] Comment on above: Performed By: #### P TT, BMP, HS TROP, PT, CK, BNP, DIFF CBC #### [address] Creatinine Clr Calc Pharmacy 61.61 Normal [facility] Comment on above: Result Comment: PERF ORMED BY: [place] [address] PATHOLOGIST GENERAL OPHTHALMOLOGIST OTTO HARLEY M.D. Performed By: #### P TT, BMP, HS TROP, PT, CK, BNP, DIFF CBC #### [address] GFR/1.73 sq M.predicted MDRD (S/P/Bld) [Vol rate/Area] mL/min/{1.73_m2} Normal [facility] Comment on above: Performed By: #### P TT, BMP, HS TROP, PT, CK, BNP, DIFF CBC #### [address] Glucose [Mass/Vol] 92 mg/dL Normal 70-100 [facility] Comment on above: Result Comment: [facility] Glucose Reference Range is dependent on time and content of last meal. Glucose of more than 200 mg/dL in a nonstressed, ambulatory subject supports the diagnosis of Diabetes Mellitus. ADA recommended reference range Performed By: #### P TT, BMP, HS TROP, PT, CK, BNP, DIFF CBC #### [address] Potassium [Moles/Vol] 3.9 mmol/L Normal 3.5-5.1 [facility] Comment on above: Performed By: #### P TT, BMP, HS TROP, PT, CK, BNP, DIFF CBC #### [address] Sodium [Moles/Vol] 136 mmol/L Normal 136-145 [facility] Comment on above: Performed By: #### P TT, BMP, HS TROP, PT, CK, BNP, DIFF CBC #### [address] Urea nitrogen [Mass/Vol] 17 mg/dL Normal 7-25 [facility] Comment on above: Performed By: #### P TT, BMP, HS TROP, PT, CK, BNP, DIFF CBC #### [address] Magnesiumon 03-07-2024 Magnesium [Mass/Vol] 1.6 mg/dL Low 1.9-2.7 [facility] Comment on above: Result Comment: PERF ORMED BY: [place] [address] PATHOLOGIST GENERAL OPHTHALMOLOGIST OTTO HARLEY M.D. Performed By: #### P TT, BMP, HS TROP, PT, CK, BNP, DIFF CBC #### [address] Scan and CBCon 03-07-2024 Anisocytosis Ql (Bld) Marked Normal [facility] Comment on above: Performed By: #### P TT, BMP, HS TROP, PT, CK, BNP, DIFF CBC #### [address] Basophils (Bld) [#/Vol] 0.0 10*3/uL Normal 0.0-0.2 [facility] Comment on above: Performed By: #### P TT, BMP, HS TROP, PT, CK, BNP, DIFF CBC #### [address] Basophils/100 WBC (Bld) 0.3 % Normal . [facility] Comment on above: Performed By: #### P TT, BMP, HS TROP, PT, CK, BNP, DIFF CBC #### [address] Eosinophils (Bld) [#/Vol] 0.2 10*3/uL Normal 0.0-0.45 [facility] Comment on above: Performed By: #### P TT, BMP, HS TROP, PT, CK, BNP, DIFF CBC #### [address] Eosinophils/100 WBC (Bld) 10.7 % Normal . [facility] Comment on above: Performed By: #### P TT, BMP, HS TROP, PT, CK, BNP, DIFF CBC #### [address] Erythrocyte distribution width (RBC) [Ratio] 21.1 % High 12.0-14.8 [facility] Comment on above: Performed By: #### P TT, BMP, HS TROP, PT, CK, BNP, DIFF CBC #### [address] Hematocrit (Bld) [Volume fraction] 26.4 % Low 38.8-50.0 [facility] Comment on above: Performed By: #### P TT, BMP, HS TROP, PT, CK, BNP, DIFF CBC #### [address] Hemoglobin (Bld) [Mass/Vol] 9.3 g/dL Low 13.0-17.0 [facility] Comment on above: Performed By: #### P TT, BMP, HS TROP, PT, CK, BNP, DIFF CBC #### [address] Lymphocytes (Bld) [#/Vol] 1.0 10*3/uL Normal 1.00-4.8 [facility] Comment on above: Performed By: #### P TT, BMP, HS TROP, PT, CK, BNP, DIFF CBC #### [address] Lymphocytes/100 WBC (Bld) 49.0 % Normal . [facility] Comment on above: Performed By: #### P TT, BMP, HS TROP, PT, CK, BNP, DIFF CBC #### [address] MCH (RBC) [Entitic mass] 34.3 pg Normal 27.5-35.2 [facility] Comment on above: Performed By: #### P TT, BMP, HS TROP, PT, CK, BNP, DIFF CBC #### [address] MCV (RBC) [Entitic vol] 97.4 fL Normal 83.5-101 [facility] Comment on above: Performed By: #### P TT, BMP, HS TROP, PT, CK, BNP, DIFF CBC #### [address] Mean Corpuscular HGB Conc 35.2 g/dL Normal 32.5-35.6 [facility] Comment on above: Performed By: #### P TT, BMP, HS TROP, PT, CK, BNP, DIFF CBC #### [address] Monocytes (Bld) [#/Vol] 0.0 10*3/uL Normal 0.0-0.8 [facility] Comment on above: Performed By: #### P TT, BMP, HS TROP, PT, CK, BNP, DIFF CBC #### [address] Monocytes/100 WBC (Bld) 1.2 % Normal . [facility] Comment on above: Performed By: #### P TT, BMP, HS TROP, PT, CK, BNP, DIFF CBC #### [address] Neutrophils (Bld) [#/Vol] 0.8 10*3/uL Low 1.8-7.7 [facility] Comment on above: Performed By: #### P TT, BMP, HS TROP, PT, CK, BNP, DIFF CBC #### [address] Neutrophils/100 WBC (Bld) 38.8 % Normal . [facility] Comment on above: Performed By: #### P TT, BMP, HS TROP, PT, CK, BNP, DIFF CBC #### [address] NRBC% 0.5 /100{WBC} Normal 0-0.5 [facility] Comment on above: Performed By: #### P TT, BMP, HS TROP, PT, CK, BNP, DIFF CBC #### [address] Platelet Estimate Decreased Normal Normal [facility] Comment on above: Performed By: #### P TT, BMP, HS TROP, PT, CK, BNP, DIFF CBC #### [address] Platelet mean volume (Bld) [Entitic vol] 7.1 fL Normal 6.6-10.1 [facility] Comment on above: Performed By: #### P TT, BMP, HS TROP, PT, CK, BNP, DIFF CBC #### [address] Platelet Morphology Normal Normal Normal [facility] Comment on above: Result Comment: PERF ORMED BY: [place] [address] PATHOLOGIST GENERAL OPHTHALMOLOGIST OTTO HARLEY M.D. Performed By: #### P TT, BMP, HS TROP, PT, CK, BNP, DIFF CBC #### [address] Platelets (Bld) [#/Vol] 60 10*3/uL Low 150-450 [facility] Comment on above: Performed By: #### P TT, BMP, HS TROP, PT, CK, BNP, DIFF CBC #### [address] RBC (Bld) [#/Vol] 2.71 10*6/uL Low 3.90-5.60 [facility] Comment on above: Performed By: #### P TT, BMP, HS TROP, PT, CK, BNP, DIFF CBC #### [address] Rouleaux Slight Normal [facility] Comment on above: Performed By: #### P TT, BMP, HS TROP, PT, CK, BNP, DIFF CBC #### [address] WBC (Bld) [#/Vol] 2.0 10*3/uL Low 4.1-10.5 [facility] Comment on above: Performed By: #### P TT, BMP, HS TROP, PT, CK, BNP, DIFF CBC #### [address] Basic Metabolic Panelon 06- Anion gap [Moles/Vol] 13.3 mmol/L Normal 6.0-15.0 [facility] e [facility] Comment on above: Performed By: #### P TT, BMP, HS TROP, PT, CK, BNP, DIFF CBC #### [place] [address] [place] Calcium [Mass/Vol] 8.7 mg/dL Normal 8.6-10.3 [facility] Comment on above: Performed By: #### P TT, BMP, HS TROP, PT, CK, BNP, DIFF CBC #### [facility] [address] Chloride [Moles/Vol] 109 mmol/L High 98-107 [facility] Comment on above: Performed By: #### P TT, BMP, HS TROP, PT, CK, BNP, DIFF CBC #### [facility] [address] CO2 [Moles/Vol] 20.9 mmol/L Low 21.0-31.0 [facility] Comment on above: Performed By: #### P TT, BMP, HS TROP, PT, CK, BNP, DIFF CBC #### [address] Creatinine [Mass/Vol] 1.32 mg/dL Significan t change up 0.70-1.30 [facility] Comment on above: Performed By: #### P TT, BMP, HS TROP, PT, CK, BNP, DIFF CBC #### [facility] [address] [place] [address] [place] Creatinine Clr Calc Pharmacy 47.61 Normal [facility] Comment on above: Result Comment: PERF ORMED BY: [place] [address] PATHOLOGIST GENERAL OPHTHALMOLOGIST OTTO HARLEY M.D. Performed By: #### P TT, BMP, HS TROP, PT, CK, BNP, DIFF CBC #### [place] [address] [place] GFR/1.73 sq M.predicted MDRD (S/P/Bld) [Vol rate/Area] 55.900 mL/min/{1.73_m2} Normal [facility] Comment on above: Performed By: #### P TT, BMP, HS TROP, PT, CK, BNP, DIFF CBC #### [place] [address] [place] Glucose [Mass/Vol] 91 mg/dL Normal 70-100 [facility] Comment on above: Result Comment: [facility] Glucose Reference Range is dependent on time and content of last meal. Glucose of more than 200 mg/dL in a nonstressed, ambulatory subject supports the diagnosis of Diabetes Mellitus. ADA recommended reference range Performed By: #### P TT, BMP, HS TROP, PT, CK, BNP, DIFF CBC #### [address] Potassium [Moles/Vol] 4.2 mmol/L Normal 3.5-5.1 [facility] Comment on above: Performed By: #### P TT, BMP, HS TROP, PT, CK, BNP, DIFF CBC #### [address] Sodium [Moles/Vol] 139 mmol/L Normal 136-145 [facility] Comment on above: Performed By: #### P TT, BMP, HS TROP, PT, CK, BNP, DIFF CBC #### [address] Urea nitrogen [Mass/Vol] 28 mg/dL High 7-25 [facility] Comment on above: Performed By: #### P TT, BMP, HS TROP, PT, CK, BNP, DIFF CBC #### [address] Diff and CBCon 03-06-2024 Anisocytosis Ql (Bld) Marked Normal [facility] Comment on above: Performed By: #### P TT, BMP, HS TROP, PT, CK, BNP, DIFF CBC #### [place] [address] [place] Eosinophils/100 WBC (Bld) 7 % High 1-3 [facility] Comment on above: Performed By: #### P TT, BMP, HS TROP, PT, CK, BNP, DIFF CBC #### [address] Erythrocyte distribution width (RBC) [Ratio] 21.8 % High 12.0-14.8 [facility] Comment on above: Performed By: #### P TT, BMP, HS TROP, PT, CK, BNP, DIFF CBC #### [address] Hematocrit (Bld) [Volume fraction] 27.3 % Low 38.8-50.0 [facility] Comment on above: Performed By: #### P TT, BMP, HS TROP, PT, CK, BNP, DIFF CBC #### [address] Hemoglobin (Bld) [Mass/Vol] 9.4 g/dL Low 13.0-17.0 [facility] Comment on above: Performed By: #### P TT, BMP, HS TROP, PT, CK, BNP, DIFF CBC #### [address] Lymphocytes/100 WBC (Bld) 65 % High 18-42 [facility] Comment on above: Performed By: #### P TT, BMP, HS TROP, PT, CK, BNP, DIFF CBC #### [address] MCH (RBC) [Entitic mass] 34.0 pg Normal 27.5-35.2 [facility] Comment on above: Performed By: #### P TT, BMP, HS TROP, PT, CK, BNP, DIFF CBC #### [address] MCV (RBC) [Entitic vol] 98.5 fL Normal 83.5-101 [facility] Comment on above: Performed By: #### P TT, BMP, HS TROP, PT, CK, BNP, DIFF CBC #### [address] Mean Corpuscular HGB Conc 34.5 g/dL Normal 32.5-35.6 [facility] Comment on above: Performed By: #### P TT, BMP, HS TROP, PT, CK, BNP, DIFF CBC #### [address] Monocytes/100 WBC (Bld) 1 % Low 2-11 [facility] Comment on above: Performed By: #### P TT, BMP, HS TROP, PT, CK, BNP, DIFF CBC #### [address] Platelet Estimate Decreased Normal Normal [facility] Comment on above: Performed By: #### P TT, BMP, HS TROP, PT, CK, BNP, DIFF CBC #### [address] Platelet mean volume (Bld) [Entitic vol] 6.7 fL Normal 6.6-10.1 [facility] Comment on above: Result Comment: PERF ORMED BY: [place] [address] PATHOLOGIST GENERAL OPHTHALMOLOGIST OTTO HARLEY M.D. Performed By: #### P TT, BMP, HS TROP, PT, CK, BNP, DIFF CBC #### [address] Platelet Morphology Normal Normal Normal [facility] Comment on above: Result Comment: PERF ORMED BY: [place] [address] PATHOLOGIST GENERAL OPHTHALMOLOGIST OTTO HARLEY M.D. Performed By: #### P TT, BMP, HS TROP, PT, CK, BNP, DIFF CBC #### [address] Platelets (Bld) [#/Vol] 60 10*3/uL Low 150-450 [facility] Comment on above: Performed By: #### P TT, BMP, HS TROP, PT, CK, BNP, DIFF CBC #### [place] [address] [place] RBC (Bld) [#/Vol] 2.78 10*6/uL Low 3.90-5.60 [facility] Comment on above: Performed By: #### P TT, BMP, HS TROP, PT, CK, BNP, DIFF CBC #### [place] [address] [place] Rouleaux Slight Normal [facility] Comment on above: Performed By: #### P TT, BMP, HS TROP, PT, CK, BNP, DIFF CBC #### [address] Segmented neutrophils/100 WBC (Bld) 26 % Low 50-70 [facility] Comment on above: Performed By: #### P TT, BMP, HS TROP, PT, CK, BNP, DIFF CBC #### [address] WBC (Bld) [#/Vol] 1.9 10*3/uL Low 4.1-10.5 [facility] Comment on above: Performed By: #### P TT, BMP, HS TROP, PT, CK, BNP, DIFF CBC #### [address] Hemoglobin and Hematocriton 03-06-2024 Hematocrit (Bld) [Volume fraction] 26.8 % Low 38.8-50.0 [facility] Comment on above: Result Comment: PERF ORMED BY: [place] [address] PATHOLOGIST GENERAL OPHTHALMOLOGIST OTTO HARLEY M.D. Performed By: #### P TT, BMP, HS TROP, PT, CK, BNP, DIFF CBC #### [address] Hematocrit (Bld) [Volume fraction] 26.0 % Low 38.8-50.0 [facility] Comment on above: Result Comment: PERF ORMED BY: [place] [address] PATHOLOGIST GENERAL OPHTHALMOLOGIST OTTO HARLEY M.D. Performed By: #### P TT, BMP, HS TROP, PT, CK, BNP, DIFF CBC #### [address] Hemoglobin (Bld) [Mass/Vol] 9.1 g/dL Low 13.0-17.0 [facility] Comment on above: Performed By: #### P TT, BMP, HS TROP, PT, CK, BNP, DIFF CBC #### [address] Hemoglobin (Bld) [Mass/Vol] 8.9 g/dL Low 13.0-17.0 [facility] Comment on above: Performed By: #### P TT, BMP, HS TROP, PT, CK, BNP, DIFF CBC #### [facility] [address] [place] [address] [facility] Melvin 03-06-2024 L Specimen: Re ceived: 03/06/24 Status: URVASHI Req Num: [id number] Spec Type: Bone Marro Subm Dr: Bertha [...] Sex Location Account Attending Physician Neil Wilcox 78/[facility] [id number] Vijay Aguilar MD SPEC NUM: RECD: 03/06/24 STATUS: URVASHI GOMEZ NUM: [id number] MOE: 03/06/24- DR: Bertha Cuevas MD ENTERED: 03/06/[address] [facility] DR: SPEC TYPE: Bone Marro DEPT: BM [...] - Hemat, Bone Marrow TP, GIEMSA STN/8 Supplemental Report Addendum 1 Entered: 03/19/24-1040 Supplemental for findings of Cytogenetics study from [employer]: -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,XY, add(6)(q13),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;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;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 ),+11,+2m ar[cp3]/46,XY[18] Addendum Signed (signature on file) Chin-Emilio Paulino MD 03/19/24 1040 Specimen: [id number] Received: 03/06/24 Status: URVASHI Gomez Num: [id number] Spec Type: Bone Marharriet Valle Dr: Bertha Cuevas MD Tissues: A Bone Marrow Aspirate (Clot) (LT POST SUP ILIAC) B Bone Marrow Biopsy/Core (LT POST SUP ILIAC) Procedures: Reticulum I, Peripheral Smr, Iron/5, HE/6, Gross/Micro L4/2, Bm Smear/2, CD138/3, CD20, CD3, CD31, CD34, CD56, CD68, CYCLIN D1, E CADHERIN, Decalcification, PAS - Hemat, Bone Marrow TP, GIEMSA Patient: Neil Wilcox [id number] (Continued) Specimen: [id number] Received: 03/06/24 (Continued) Signed (signature on file) Chaitanya Paulino MD 03/17/24 1856 Specimen: [id number] Received: 03/06/24 Status: URVASHI Gomez Num: [id number] Spec Type: Bone Marro Leonard Dr: Bertha Cuevas MD Tissues: A Bone Marrow Aspirate (Clot) (LT POST SUP ILIAC) B Bone Marrow Biopsy/Core (LT POST SUP ILIAC) Procedures: Reticulum I, Peripheral Smr, Iron/5, HE/6, Gross/Micro L4/2, Bm Smear/2, CD138/3, CD20, CD3, CD31, CD34, CD56, CD68, CYCLIN D1, E CADHERIN, Decalcification, PAS - Hemat, Bone Marrow TP, GIEMSA STN/8 Patient: Neil Wilcox [id number] (Continued) Specimen: [id number] Received: 03/06/24 (Continued) Pathological Diagnosis A and B, left posterior [...] for plasma cell myeloma panel is abnormal -IgH (14q32) Rearrangement: Detected (Atypical) Note 2: -The cause of progressive pancytopenia during the last 4 years is compatible with the effect of the interval occurrence of multiple myeloma -The atypical plasma cells are positive for CD20, as shown by immunohistochemistry, and is also partially defined by the flow cytometry of note -Pending additional cytogenetic and other molecular study to fol (more content not included)... Normal [facility] Peripheral white blood cell differential % bands, microscopic examOrdered By: Bertha Cuevas on 03-06-2024 Band form neutrophils/100 WBC (Bld) 1 % Normal 0-5 [facility] Comment on above: Performed By: #### P TT, BMP, HS TROP, PT, CK, BNP, DIFF CBC #### [facility] [address] [place] [address] [facility] ABO/Rh Retypeon 03-05-2024 ABO/RH Recheck Result Positive Normal [facility] Comment on above: Result Comment: PERF ORMED BY: [place] [id number] PATHOLOGIST GENERAL OPHTHALMOLOGIST OTTO HARLEY M.D. Activated partial thrombopla stin time (aPTT) in platelet poor plasma by coagulation aOrdered By: Trung Armenta on 03-05-2024 aPTT Coag (PPP) [Time] 29.7 s 25.1-36.5 [facility] Comment on above: A hematocrit value g reater than 55% may lead to inaccurate results in coagulation testing. Patients having hematocrit values >55% require a special collection tube for coagulation studies. Please contact the laboratory at [phone] for redraw instructions. Alanine aminotransferase [En zymatic activity/volume] in Serum or PlasmaOrdered By: Bertha Cuevas on 03-05-2024 ALT [Catalytic activity/Vol] 10 U/L Normal 7-52 [facility] Comment on above: Performed By: #### P TT, BMP, HS TROP, PT, CK, BNP, DIFF CBC #### [facility] [address] [place] [address] [facility] Albumin [Mass/volume] in Ser um or Plasma by Bromocresol green (BCG) dye binding methoOrdered By: Bertha Cuevas on 03-05-2024 Albumin BCG dye [Mass/Vol] 3.1 g/dL Low 3.5-5.7 [facility] Alkaline phosphatase [Enzyma tic activity/volume] in Serum or PlasmaOrdered By: Bertha Cuevas on 03-05-2024 ALP [Catalytic activity/Vol] 61 U/L Normal 34-104 [facility] Comment on above: Result Comment: PERF ORMED BY: [place] [id number] PATHOLOGIST GENERAL OPHTHALMOLOGIST OTTO HARLEY M.D. Performed By: #### P TT, BMP, HS TROP, PT, CK, BNP, DIFF CBC #### [place] [address] [place] Anisocytosis [Presence] in B lood by Light microscopyOrdered By: Trung Armenta on 03-05-2024 Anisocytosis Ql (Bld) Moderate Normal [facility] Comment on above: Performed By: #### P TT, BMP, HS TROP, PT, CK, BNP, DIFF CBC #### [address] Aspartate aminotransferase [ Enzymatic activity/volume] in Serum or PlasmaOrdered By: Bertha Cuevas on 03-05-2024 AST [Catalytic activity/Vol] 16 U/L Normal 13-39 [facility] Comment on above: Performed By: #### P TT, BMP, HS TROP, PT, CK, BNP, DIFF CBC #### [address] Automated epithelial cells c ount in urine sediment (number/area)Ordered By: Trung Armenta on 03-05-2024 Epithelial cells Auto (Urine sed) [#/Area] 0-1 [HPF] 0-2 [facility] BNP ser/plasOrdered By: Trudi Armenta on 03-05-2024 Natriuretic peptide B (Bld) [Mass/Vol] 108.0 pg/mL High 5-100 [facility] Comment on above: Result Comment: PERF ORMED BY: [place] [address] PATHOLOGIST GENERAL OPHTHALMOLOGIST OTTO HARLEY M.D. Performed By: #### P TT, BMP, HS TROP, PT, CK, BNP, DIFF CBC #### [address] Bacteria [Presence] in Urine by AutomatedOrdered By: Trung Armenta on 03-05-2024 Bacteria Auto Ql (U) None seen [HPF] None Seen [facility] Basic Metabolic Panelon 02-22 Creatinine Clr Calc Pharmacy 28.70 Normal [facility] Comment on above: Result Comment: PERF ORMED BY: [place] [address] PATHOLOGIST GENERAL OPHTHALMOLOGIST OTTO HARLEY M.D. Performed By: #### P TT, BMP, HS TROP, PT, CK, BNP, DIFF CBC #### [address] GFR/1.73 sq M.predicted MDRD (S/P/Bld) [Vol rate/Area] 30.449 mL/min/{1.73_m2} Normal [facility] Comment on above: Performed By: #### P TT, BMP, HS TROP, PT, CK, BNP, DIFF CBC #### [address] Basophils Auto (Bld) [#/Vol] Ordered By: Trung Armenta on 03-05-2024 Basophils (Bld) [#/Vol] N/A [facility] Basophils/100 WBC Auto (Bld) Ordered By: Trung Armenta on 03-05-2024 Basophils/100 WBC (Bld) N/A [facility] Basophils/100 leukocytes in Blood by Manual countOrdered By: Trung Armenta on 03-05-2024 Basophils/100 WBC (Bld) 0 % Normal 0-2 [facility] Comment on above: Performed By: #### P TT, BMP, HS TROP, PT, CK, BNP, DIFF CBC #### [address] Bilirubin Test strip Ql (U)O rdered By: Trung Armenta on 03-05-2024 Bilirubin Ql (U) Negative Negative [facility] Bilirubin.total [Mass/volume ] in Serum or PlasmaOrdered By: Bertha Cuevas on 03-05-2024 Bilirubin [Mass/Vol] 0.4 mg/dL Normal 0.3-1.0 [facility] Comment on above: Performed By: #### P TT, BMP, HS TROP, PT, CK, BNP, DIFF CBC #### [place] [address] [place] Calcium [Mass/volume] in Ser um or PlasmaOrdered By: Bertha Cuevas on 03-05-2024 Calcium [Mass/Vol] 9.8 mg/dL Normal 8.6-10.3 [facility] Comment on above: Performed By: #### P TT, BMP, HS TROP, PT, CK, BNP, DIFF CBC #### [facility] [address] [place] [address] [place] Calcium [Mass/volume] in Ser um or PlasmaOrdered By: Trung Armenta on 03-05-2024 Calcium [Mass/Vol] 9.9 mg/dL Normal 8.6-10.3 [facility] Comment on above: Performed By: #### P TT, BMP, HS TROP, PT, CK, BNP, DIFF CBC #### [place] [address] [place] Carbon dioxide, total [Moles /volume] in Serum or PlasmaOrdered By: artem Pearce on 03-05-2024 CO2 [Moles/Vol] 18.7 mmol/L Low 21.0-31.0 [facility] Comment on above: Performed By: #### P TT, BMP, HS TROP, PT, CK, BNP, DIFF CBC #### [facility] [address] [place] [address] [place] Carbon dioxide, total [Moles /volume] in Serum or PlasmaOrdered By: Trung Armenta on 03-05-2024 CO2 [Moles/Vol] 24.0 mmol/L Normal 21.0-31.0 [facility] Comment on above: Performed By: #### P TT, BMP, HS TROP, PT, CK, BNP, DIFF CBC #### [facility] [address] [place] [address] [place] Chloride [Moles/volume] in S dustin or PlasmaOrdered By: artem Cuevas on 03-05-2024 Chloride [Moles/Vol] 104 mmol/L Normal 98-107 [facility] Comment on above: Performed By: #### P TT, BMP, HS TROP, PT, CK, BNP, DIFF CBC #### [facility] [address] Chloride [Moles/volume] in S dustin or PlasmaOrdered By: Trung Armenta on 03-05-2024 Chloride [Moles/Vol] 103 mmol/L Normal 98-107 [facility] Comment on above: Performed By: #### P TT, BMP, HS TROP, PT, CK, BNP, DIFF CBC #### [address] Color of Urine by AutoOrdere d By: Trung Armenta on 03-05-2024 Color (U) Yellow Normal Yellow [facility] Comment on above: Order Comment: Name Collection Type:: Clean-Voided Midstream Performed By: #### P TT, BMP, HS TROP, PT, CK, BNP, DIFF CBC #### [address] Complete Blood Count Auto Di ffon 03-05-2024 Mean Corpuscular HGB Conc 34.6 g/dL Normal 32.5-35.6 [facility] Comment on above: Order Comment: STAT FOR BX Performed By: #### C BC #### [address] Comprehensive Metabolic Pane melvin 03-05-2024 Albumin [Mass/Vol] 3.1 g/dL Low 3.5-5.7 [facility] Comment on above: Performed By: #### P TT, BMP, HS TROP, PT, CK, BNP, DIFF CBC #### [address] GFR/1.73 sq M.predicted MDRD (S/P/Bld) [Vol rate/Area] 31.659 mL/min/{1.73_m2} Normal [facility] Comment on above: Performed By: #### P TT, BMP, HS TROP, PT, CK, BNP, DIFF CBC #### [address] Creatine kinase [Enzymatic a ctivity/volume] in Serum or PlasmaOrdered By: Trung Armenta on 03-05-2024 CK [Catalytic activity/Vol] 60 U/L Normal 30-223 [facility] Comment on above: Performed By: #### P TT, BMP, HS TROP, PT, CK, BNP, DIFF CBC #### [address] Creatinine [Mass/volume] in Serum or PlasmaOrdered By: Bertha Cuevas on 03-05-2024 Creatinine [Mass/Vol] 2.12 mg/dL High 0.70-1.30 [facility] Comment on above: Performed By: #### P TT, BMP, HS TROP, PT, CK, BNP, DIFF CBC #### [address] Creatinine [Mass/volume] in Serum or PlasmaOrdered By: Trung Armenta on 03-05-2024 Creatinine [Mass/Vol] 2.19 mg/dL High 0.70-1.30 [facility] Comment on above: Performed By: #### P TT, BMP, HS TROP, PT, CK, BNP, DIFF CBC #### [address] Diff and CBCon 03-05-2024 Macrocytosis Slight Normal [facility] Comment on above: Performed By: #### P TT, BMP, HS TROP, PT, CK, BNP, DIFF CBC #### [address] Mean Corpuscular HGB Conc 34.4 g/dL Normal 32.5-35.6 [facility] Comment on above: Performed By: #### P TT, BMP, HS TROP, PT, CK, BNP, DIFF CBC #### [address] Monocyte Distribution Width Normal 0.00-20.00 [facility] Comment on above: Result Comment: The predictive value of MDW for identifying sepsis in patients with hematological abnormalities has not been established Performed By: #### P TT, BMP, HS TROP, PT, CK, BNP, DIFF CBC #### [address] Platelet Estimate Decreased Normal Normal [facility] Comment on above: Performed By: #### P TT, BMP, HS TROP, PT, CK, BNP, DIFF CBC #### [address] Platelet Morphology Normal Normal Normal [facility] Comment on above: Result Comment: PERF ORMED BY: [place] [address] PATHOLOGIST GENERAL OPHTHALMOLOGIST OTTO HARLEY M.D. Performed By: #### P TT, BMP, HS TROP, PT, CK, BNP, DIFF CBC #### [address] Dipstick and Microscopicon 0 03-05-2024 Appearance (U) Clear Normal Clear [facility] Comment on above: Order Comment: Name Collection Type:: Clean-Voided Midstream Performed By: #### P TT, BMP, HS TROP, PT, CK, BNP, DIFF CBC #### [address] Bacteria,Urine None Seen Normal None Seen [facility] Comment on above: Order Comment: Name Collection Type:: Clean-Voided Midstream Performed By: #### P TT, BMP, HS TROP, PT, CK, BNP, DIFF CBC #### [address] Bilirubin,Urine Negative Normal Negative [facility] Comment on above: Order Comment: Name Collection Type:: Clean-Voided Midstream Performed By: #### P TT, BMP, HS TROP, PT, CK, BNP, DIFF CBC #### [address] Glucose Ql (U) Normal Normal Normal [facility] Comment on above: Order Comment: Name Collection Type:: Clean-Voided Midstream Performed By: #### P TT, BMP, HS TROP, PT, CK, BNP, DIFF CBC #### [address] Hyaline Casts,Urine 0-8 Normal 0-8 [facility] Comment on above: Order Comment: Name Collection Type:: Clean-Voided Midstream Result Comment: PERF ORMED BY: [place] [address] PATHOLOGIST GENERAL OPHTHALMOLOGIST OTTO HARLEY M.D. Performed By: #### P TT, BMP, HS TROP, PT, CK, BNP, DIFF CBC #### [address] Ketones Ql (U) Negative Normal Negative [facility] Comment on above: Order Comment: Name Collection Type:: Clean-Voided Midstream Performed By: #### P TT, BMP, HS TROP, PT, CK, BNP, DIFF CBC #### [address] Leukocyte esterase Test strip Ql (U) Negative Normal Negative [facility] Comment on above: Order Comment: Name Collection Type:: Clean-Voided Midstream Performed By: #### P TT, BMP, HS TROP, PT, CK, BNP, DIFF CBC #### [address] Nitrite,Urine Negative Normal Negative [facility] Comment on above: Order Comment: Name Collection Type:: Clean-Voided Midstream Performed By: #### P TT, BMP, HS TROP, PT, CK, BNP, DIFF CBC #### [address] Occult Blood,Urine Negative Normal Negative [facility] Comment on above: Order Comment: Name Collection Type:: Clean-Voided Midstream Result Comment: PERF ORMED BY: [place] [address] PATHOLOGIST GENERAL OPHTHALMOLOGIST OTTO HARLEY M.D. Performed By: #### P TT, BMP, HS TROP, PT, CK, BNP, DIFF CBC #### [place] [address] [place] RBC,Urine 1-2 Normal 0-4 [facility] Comment on above: Order Comment: Name Collection Type:: Clean-Voided Midstream Performed By: #### P TT, BMP, HS TROP, PT, CK, BNP, DIFF CBC #### [address] Specificy [place],Urine 1.018 Normal 1.001-1.03 0 [facility] Comment on above: Order Comment: Name Collection Type:: Clean-Voided Midstream Performed By: #### P TT, BMP, HS TROP, PT, CK, BNP, DIFF CBC #### [facility] [address] Squamous Epithelial Cell,Urine 0-1 Normal 0-2 [facility] Comment on above: Order Comment: Name Collection Type:: Clean-Voided Midstream Performed By: #### P TT, BMP, HS TROP, PT, CK, BNP, DIFF CBC #### [facility] [address] Urobilinogen,Urine Normal Normal Normal [facility] Comment on above: Order Comment: Name Collection Type:: Clean-Voided Midstream Performed By: #### P TT, BMP, HS TROP, PT, CK, BNP, DIFF CBC #### [address] WBC,Urine 3-4 Normal 0-4 [facility] Comment on above: Order Comment: Name Collection Type:: Clean-Voided Midstream Performed By: #### P TT, BMP, HS TROP, PT, CK, BNP, DIFF CBC #### [address] ECG 12 lead ECGon 03-05-2024 ECG 12 lead ECG [facility] [place] [address] Electrocardiograph Report Signed Patient: Neil Wilcox MR#: [id number] : 1945 Acct:[id number] Age/Sex: 78 / M ADM Date: 03/05/24 Loc: ER Room: Type: [facility] ER Attending Dr: Ordering Provider: [...] By Trung Armenta DO 1437 Normal [facility] Eosinophils Auto (Bld) [#/Vo l]Ordered By: Trung Armenta on 03-05-2024 Eosinophils (Bld) [#/Vol] N/A [facility] Eosinophils/100 WBC Auto (Bl d)Ordered By: Trung Armenta on 03-05-2024 Eosinophils/100 WBC (Bld) N/A [facility] Eosinophils/100 leukocytes i n Blood by Manual countOrdered By: Trung Armenta on 03-05-2024 Eosinophils/100 WBC (Bld) 10 % High 1-3 [facility] Comment on above: Performed By: #### P TT, BMP, HS TROP, PT, CK, BNP, DIFF CBC #### [facility] [address] Erythrocyte distribution wid th [Ratio] by Automated countOrdered By: Bertha Pearce on 03-05-2024 Erythrocyte distribution width (RBC) [Ratio] 19.3 % High 12.0-14.8 [facility] Comment on above: Order Comment: STAT FOR BX Performed By: #### C BC #### [facility] [address] Erythrocyte distribution wid th [Ratio] by Automated countOrdered By: Trung Armenta on 03-05-2024 Erythrocyte distribution width (RBC) [Ratio] 19.4 % High 12.0-14.8 [facility] Comment on above: Performed By: #### P TT, BMP, HS TROP, PT, CK, BNP, DIFF CBC #### [facility] [address] [place] [address] [place] Erythrocytes [#/area] in Uri ne sediment by Automated countOrdered By: Trung Armenta on 03-05-2024 RBC Auto (Urine sed) [#/Area] 1-2 [HPF] 0-4 [facility] Erythrocytes [#/volume] in B lood by Automated countOrdered By: Bertha Cuevas on 03-05-2024 RBC (Bld) [#/Vol] 2.25 10*6/uL Low 3.90-5.60 [facility] Comment on above: Order Comment: STAT FOR BX Performed By: #### C BC #### [facility] [address] Erythrocytes [#/volume] in B lood by Automated countOrdered By: Trung Armenta on 03-05-2024 RBC (Bld) [#/Vol] 1.93 10*6/uL Low 3.90-5.60 [facility] Comment on above: Performed By: #### P TT, BMP, HS TROP, PT, CK, BNP, DIFF CBC #### [facility] [address] [place] [address] [place] Glucose [Mass/volume] in Ser um or PlasmaOrdered By: Bertha Cuevas on 03-05-2024 Glucose [Mass/Vol] 110 mg/dL High 70-100 [facility] Comment on above: ADA recommended refe rence rangeRandom Glucose Reference Range is dependent on time and content of last meal. Glucose of more than 200 mg/dL in a nonstressed, ambulatory subject supports the diagnosis of Diabetes Mellitus. Result Comment: [place] Glucose Reference Range is dependent on time and content of last meal. Glucose of more than 200 mg/dL in a nonstressed, ambulatory subject supports the diagnosis of Diabetes Mellitus. ADA recommended reference range Performed By: #### P TT, BMP, HS TROP, PT, CK, BNP, DIFF CBC #### [facility] [address] [place] [id number] [place] Glucose [Mass/volume] in Ser um or PlasmaOrdered By: Trung Armenta on 03-05-2024 Glucose [Mass/Vol] 113 mg/dL High 70-100 [facility] Comment on above: ADA recommended refe rence rangeRandom Glucose Reference Range is dependent on time and content of last meal. Glucose of more than 200 mg/dL in a nonstressed, ambulatory subject supports the diagnosis of Diabetes Mellitus. Result Comment: [place] Glucose Reference Range is dependent on time and content of last meal. Glucose of more than 200 mg/dL in a nonstressed, ambulatory subject supports the diagnosis of Diabetes Mellitus. ADA recommended reference range Performed By: #### P TT, BMP, HS TROP, PT, CK, BNP, DIFF CBC #### [address] Hematocrit [Volume Fraction] of Blood by Automated countOrdered By: artem Pearce on 03-05-2024 Hematocrit (Bld) [Volume fraction] 23.5 % Low 38.8-50.0 [facility] Comment on above: Order Comment: STAT FOR BX Performed By: #### C BC #### [address] Hematocrit [Volume Fraction] of Blood by Automated countOrdered By: rTung Armenta on 03-05-2024 Hematocrit (Bld) [Volume fraction] 20.1 % Low 38.8-50.0 [facility] Comment on above: Performed By: #### P TT, BMP, HS TROP, PT, CK, BNP, DIFF CBC #### [address] Hemoglobin [Mass/volume] in BloodOrdered By: artem Cuevas on 03-05-2024 Hemoglobin (Bld) [Mass/Vol] 8.1 g/dL Low 13.0-17.0 [facility] Comment on above: Order Comment: STAT FOR BX Performed By: #### C BC #### [address] Hemoglobin [Mass/volume] in BloodOrdered By: Trung Armenta on 03-05-2024 Hemoglobin (Bld) [Mass/Vol] 6.9 g/dL Low 13.0-17.0 [facility] Comment on above: Performed By: #### P TT, BMP, HS TROP, PT, CK, BNP, DIFF CBC #### [address] Hemoglobin and Hematocriton 03-05-2024 Hematocrit (Bld) [Volume fraction] 24.9 % Low 38.8-50.0 [facility] Comment on above: Result Comment: PERF ORMED BY: [place] [address] PATHOLOGIST GENERAL OPHTHALMOLOGIST OTTO HARLEY M.D. Performed By: #### P TT, BMP, HS TROP, PT, CK, BNP, DIFF CBC #### [address] Hemoglobin (Bld) [Mass/Vol] 8.6 g/dL Low 13.0-17.0 [facility] Comment on above: Performed By: #### P TT, BMP, HS TROP, PT, CK, BNP, DIFF CBC #### [address] INR in Platelet poor plasma by Coagulation assayOrdered By: Trung Armenta on 03-05-2024 INR Coag (PPP) [Relative time] 1.3 {INR} Normal [facility] Comment on above: INR Therapeutic Rang e [...] TROP, PT, CK, BNP, DIFF CBC #### [place] [id number] [facility] Ketones Auto test strip (U) [Mass/Vol]Ordered By: Trung Armenta on 03-05-2024 Ketones (U) [Mass/Vol] Negative Negative [facility] Laboratory - UrinalysisOrder ed By: Trung Armenta on 03-05-2024 Hyaline casts LM Ql (Urine sed) 0-8 [LPF] 0-8 [facility] LeukoReduced RBCon LeukoReduced RBC TRANSFUSED 03/05/24 1636 Normal [facility] Leukocytes [#/area] in Urine sediment by Automated countOrdered By: Trung Armenta on 03-05-2024 WBC Auto (Urine sed) [#/Area] 3-4 [HPF] 0-4 [facility] Leukocytes [#/volume] correc myrtle for nucleated erythrocytes in Blood by Automated counOrdered By: Bertha Cuevas on 03-05-2024 WBC corrected for nucl RBC Auto (Bld) [#/Vol] 1.5 10*3/uL Low 4.1-10.5 [facility] Leukocytes [#/volume] correc myrtle for nucleated erythrocytes in Blood by Automated counOrdered By: Trung Armenta on 03-05-2024 WBC corrected for nucl RBC Auto (Bld) [#/Vol] 1.6 10*3/uL 4.1-10.5 [facility] Leukocytes [#/volume] in Blo od by Automated countOrdered By: Bertha Cuevas on 03-05-2024 WBC (Bld) [#/Vol] 1.5 10*3/uL Low 4.1-10.5 [facility] Comment on above: Order Comment: STAT FOR BX Performed By: #### C BC #### [facility] [address] [place] [address] Leukocytes [#/volume] in Blo od by Automated countOrdered By: Trung Armenta on 03-05-2024 WBC (Bld) [#/Vol] 1.6 10*3/uL Low 4.1-10.5 [facility] Comment on above: Performed By: #### P TT, BMP, HS TROP, PT, CK, BNP, DIFF CBC #### [facility] [address] [place] [address] [place] Lymphocytes Auto (Bld) [#/Vo l]Ordered By: Trung Armenta on 03-05-2024 Lymphocytes (Bld) [#/Vol] N/A [facility] Lymphocytes/100 WBC Auto (Bl d)Ordered By: Trung Armenta on 03-05-2024 Lymphocytes/100 WBC (Bld) N/A [facility] Lymphocytes/100 leukocytes i n Blood by Manual countOrdered By: Trung Armenta on 03-05-2024 Lymphocytes/100 WBC (Bld) 54 % High 18-42 [facility] Comment on above: Performed By: #### P TT, BMP, HS TROP, PT, CK, BNP, DIFF CBC #### [facility] [address] [place] [address] MCH [Entitic mass] by Automa myrtle countOrdered By: Bertha Cuevas on 03-05-2024 MCH (RBC) [Entitic mass] 36.2 pg High 27.5-35.2 [facility] Comment on above: Order Comment: STAT FOR BX Performed By: #### C BC #### [facility] [address] [place] [address] MCH [Entitic mass] by Automa myrtle countOrdered By: Trugn Armenta on 03-05-2024 MCH (RBC) [Entitic mass] 35.9 pg High 27.5-35.2 [facility] Comment on above: Performed By: #### P TT, BMP, HS TROP, PT, CK, BNP, DIFF CBC #### [facility] [address] [place] [address] MCHC Auto (RBC) [Mass/Vol]Or dered By: Bertha Cuevas on 03-05-2024 MCHC (RBC) [Mass/Vol] 34.6 g/dL 32.5-35.6 [facility] MCHC Auto (RBC) [Mass/Vol]Or dered By: Trung Armenta on 03-05-2024 MCHC (RBC) [Mass/Vol] 34.4 g/dL 32.5-35.6 [facility] MCV [Entitic volume] by Auto mated countOrdered By: Bertha Cuevas on 03-05-2024 MCV (RBC) [Entitic vol] 104.6 fL High 83.5-101 [facility] Comment on above: Order Comment: STAT FOR BX Performed By: #### C BC #### [facility] [address] MCV [Entitic volume] by Auto mated countOrdered By: Trung Armenta on 03-05-2024 MCV (RBC) [Entitic vol] 104.2 fL High 83.5-101 [facility] Comment on above: Performed By: #### P TT, BMP, HS TROP, PT, CK, BNP, DIFF CBC #### [facility] [address] Macrocytes LM Ql (Bld)Ordere d By: Trung Armenta on 03-05-2024 Macrocytes Ql (Bld) Slight [facility] Manual blood segmented neutr ophils/100 leukocytesOrdered By: Trung Armenta on 03-05-2024 Segmented neutrophils/100 WBC (Bld) 31 % Low 50-70 [facility] Comment on above: Performed By: #### P TT, BMP, HS TROP, PT, CK, BNP, DIFF CBC #### [facility] [address] [place] [address] Monocyte distribution width [Entitic volume] in Blood by AutomatedOrdered By: Trung Armenta on 03-05-2024 Monocyte distribution width Auto (Bld) [Entitic vol] See comment 0.00-20.00 [facility] Comment on above: The predictive value of MDW for identifying sepsis in patients with hematological abnormalities has not been established Monocytes Auto (Bld) [#/Vol] Ordered By: Trung Armenta on 03-05-2024 Monocytes (Bld) [#/Vol] N/A [facility] Monocytes/100 WBC Auto (Bld) Ordered By: Trung Armenta on 03-05-2024 Monocytes/100 WBC (Bld) N/A [facility] Monocytes/100 leukocytes in Blood by Manual countOrdered By: Trung Armenta on 03-05-2024 Monocytes/100 WBC (Bld) 0 % Low 2-11 [facility] Comment on above: Performed By: #### P TT, BMP, HS TROP, PT, CK, BNP, DIFF CBC #### [facility] [address] [place] [address] [place] Neutrophils Auto (Bld) [#/Vo l]Ordered By: Trung Armenta on 03-05-2024 Neutrophils (Bld) [#/Vol] N/A [facility] Neutrophils/100 WBC Auto (Bl d)Ordered By: Trung Armenta on 03-05-2024 Neutrophils/100 WBC (Bld) N/A [facility] Nitrite Test strip Ql (U)Ord ered By: Trung Armenta on 03-05-2024 Nitrite Ql (U) Negative Negative [facility] No Panel InformationOrdered By: Bertha Cuevas on 03-05-2024 Estimated GFR (CKD-EPI) 31.659 mL/Min [facility] Creatinine Clearance (Chem N/A [facility] No Panel InformationOrdered By: Trung Armenta on 03-05-2024 Estimated GFR (CKD-EPI) 30.449 mL/Min [facility] Creatinine Clearance (Chem 28.70 [facility] Stool Occult Blood (AMY) [facility] Nucleated erythrocytes [Pres ence] in Blood by Automated countOrdered By: Trung Armenta on 03-05-2024 Nucleated RBC Auto Ql (Bld) N/A [facility] Partial Thromboplastin Timeo n 03-05-2024 aPTT Coag (Bld) [Time] 29.7 s Normal 25.1-36.5 [facility] Comment on above: Result Comment: A he matocrit value greater than 55% may lead to inaccurate results in coagulation testing. Patients having hematocrit values >55% require a special collection tube for coagulation studies. Please contact the laboratory at [phone] for redraw instructions. PERFORMED BY: [address] [place] [address] PATHOLOGIST GENERAL OPHTHALMOLOGIST OTTO HARLEY M.D. Performed By: #### P TT, BMP, HS TROP, PT, CK, BNP, DIFF CBC #### [facility] [address] Peripheral white blood cell differential % bands, microscopic examOrdered By: Trung Armenta on 03-05-2024 Band form neutrophils/100 WBC (Bld) 5 % Normal 0-5 [facility] Comment on above: Performed By: #### P TT, BMP, HS TROP, PT, CK, BNP, DIFF CBC #### [address] Platelet adequacy [Presence] in Blood by Light microscopyOrdered By: Trung Armenta on 03-05-2024 Platelets LM Ql (Bld) Decreased Normal [facility] Platelet mean volume [Entiti c volume] in Blood by Automated countOrdered By: Bertha Cuevas on 03-05-2024 Platelet mean volume (Bld) [Entitic vol] 8.0 fL Normal 6.6-10.1 [facility] Comment on above: Order Comment: STAT FOR BX Result Comment: PERF ORMED BY: [place] [address] PATHOLOGIST GENERAL OPHTHALMOLOGIST OTTO HARLEY M.D. Performed By: #### C BC #### [address] Platelet mean volume [Entiti c volume] in Blood by Automated countOrdered By: Trung Armenta on 03-05-2024 Platelet mean volume (Bld) [Entitic vol] 7.6 fL Normal 6.6-10.1 [facility] Comment on above: Result Comment: PERF ORMED BY: [place] [address] PATHOLOGIST GENERAL OPHTHALMOLOGIST OTTO HARLEY M.D. Performed By: #### P TT, BMP, HS TROP, PT, CK, BNP, DIFF CBC #### [address] Platelet morphology finding [Identifier] in BloodOrdered By: Trung Armenta on 03-05-2024 Platelet morphology finding Nom (Bld) Normal Normal [facility] Platelets [#/volume] in Bloo d by Automated countOrdered By: Bertha Cuevas on 03-05-2024 Platelets (Bld) [#/Vol] 78 10*3/uL Low 150-450 [facility] Comment on above: Order Comment: STAT FOR BX Performed By: #### C BC #### [facility] [address] [place] [address] [place] Platelets [#/volume] in Bloo d by Automated countOrdered By: Trung Armenta on 03-05-2024 Platelets (Bld) [#/Vol] 67 10*3/uL Low 150-450 [facility] Comment on above: Performed By: #### P TT, BMP, HS TROP, PT, CK, BNP, DIFF CBC #### [place] [address] [place] Potassium [Moles/volume] in Serum or PlasmaOrdered By: Bertha Cuevas on 03-05-2024 Potassium [Moles/Vol] 4.5 mmol/L Normal 3.5-5.1 [facility] Comment on above: Hemolysis is present at a level that could interfere with the result.Contact lab if redraw is required Result Comment: Hemo lysis is present at a level that could interfere with the result. Contact lab if redraw is required Performed By: #### P TT, BMP, HS TROP, PT, CK, BNP, DIFF CBC #### [place] [address] [place] Potassium [Moles/volume] in Serum or PlasmaOrdered By: Trung Armenta on 03-05-2024 Potassium [Moles/Vol] 4.2 mmol/L Normal 3.5-5.1 [facility] Comment on above: Performed By: #### P TT, BMP, HS TROP, PT, CK, BNP, DIFF CBC #### [place] [address] [place] Protein [Mass/volume] in Ser um or PlasmaOrdered By: Bertha Cuevas on 03-05-2024 Protein [Mass/Vol] 9.3 g/dL High 6.4-8.9 [facility] Comment on above: Performed By: #### P TT, BMP, HS TROP, PT, CK, BNP, DIFF CBC #### [address] Prothrombin time (PT)Ordered By: Trung Armenta on 03-05-2024 PT Coag (PPP) [Time] 15.0 s High 9.0-12.9 [facility] Comment on above: A hematocrit value g reater than 55% may lead to inaccurate results in coagulation testing. Patients having hematocrit values >55% require a special collection tube for coagulation studies. Please contact the laboratory at [phone] for redraw instructions. Result Comment: A he matocrit value greater than 55% may lead to inaccurate results in coagulation testing. Patients having hematocrit values >55% require a special collection tube for coagulation studies. Please contact the laboratory at [phone] for redraw instructions. Performed By: #### P TT, BMP, HS TROP, PT, CK, BNP, DIFF CBC #### [address] RBC morphologyOrdered By: Emeka Armenta on 03-05-2024 RBC morphology finding Nom (Bld) N/A [facility] Serum globulin measurement b y calculation (mass/volume)Ordered By: Bertha Pearce on 03-05-2024 Globulin (S) [Mass/Vol] 6.2 g/dL [facility] Comment on above: Performed By: #### P TT, BMP, HS TROP, PT, CK, BNP, DIFF CBC #### [address] Serum or plasma albumin/glob ulin mass ratioOrdered By: Bertha Cuevas on 03-05-2024 Albumin/Globulin [Mass ratio] 0.5 {ratio} [facility] Comment on above: Performed By: #### P TT, BMP, HS TROP, PT, CK, BNP, DIFF CBC #### [address] Serum or plasma anion gap de terminationOrdered By: Bertha Cuevas on 03-05-2024 Anion gap [Moles/Vol] 19.8 mmol/L High 6.0-15.0 [facility] Comment on above: Performed By: #### P TT, BMP, HS TROP, PT, CK, BNP, DIFF CBC #### [facility] [address] [place] [address] Serum or plasma anion gap de terminationOrdered By: Trung Armenta on 03-05-2024 Anion gap [Moles/Vol] 16.2 mmol/L High 6.0-15.0 [facility] Comment on above: Performed By: #### P TT, BMP, HS TROP, PT, CK, BNP, DIFF CBC #### [facility] [address] [place] [address] Sodium [Moles/volume] in Ser um or PlasmaOrdered By: Bertha Cuevas on 03-05-2024 Sodium [Moles/Vol] 138 mmol/L Normal 136-145 [facility] Comment on above: Performed By: #### P TT, BMP, HS TROP, PT, CK, BNP, DIFF CBC #### [facility] [address] [place] [address] Sodium [Moles/volume] in Ser um or PlasmaOrdered By: Trung Armenta on 03-05-2024 Sodium [Moles/Vol] 139 mmol/L Normal 136-145 [facility] Comment on above: Performed By: #### P TT, BMP, HS TROP, PT, CK, BNP, DIFF CBC #### [facility] [address] [place] [address] Specific gravity Auto test s trip (U) [Rel density]Ordered By: Trung Armenta on 03-05-2024 Specific gravity (U) [Rel density] 1.018 1.001-1.03 0 [facility] Stool Occult Bl. Scr. (Guaia c)on 03-05-2024 Stool Occult Bl. Scr. (Guaiac) Occult Blood Negative for Occult Blood by Guaiac Methodology Reference range = Negative PERFORMED BY: [address] [address] PATHOLOGIST GENERAL OPHTHALMOLOGIST OTTO HARLEY M.D. Normal [facility] Comment on above: Performed By: #### O BS-GUAIAC #### [address] [address] [place] Troponin I High Sensitivityo n 03-05-2024 Troponin I High Sensitivity 22.3 pg/mL High 0.0-20.0 [facility] Comment on above: Result Comment: PERF ORMED BY: [place] [address] PATHOLOGIST GENERAL OPHTHALMOLOGIST OTTO HARLEY M.D. Performed By: #### P TT, BMP, HS TROP, PT, CK, BNP, DIFF CBC #### [address] [address] [facility] Troponin I.cardiac [Mass/vol ume] in Serum or Plasma by Detection limit <= 0.01 ng/Ordered By: Trung Armenta on 03-05-2024 Troponin I.cardiac DL <= 0.01 ng/mL [Mass/Vol] 22.3 pg/mL High 0.0-20.0 [facility] Type and Screenon 03-05-2024 ABO and Rh group Nom (Bld) Blood group A Rh(D) positive Normal [facility] Comment on above: Order Comment: Trans fuse now? Y Number of units to transfuse now? 2 Result Comment: PERF ORMED BY: [place] [address] PATHOLOGIST GENERAL OPHTHALMOLOGIST OTTO HARLEY M.D. Urea nitrogen [Mass/volume] in Serum or PlasmaOrdered By: Bertha Cuevas on 03-05-2024 Urea nitrogen [Mass/Vol] 41 mg/dL High 7-25 [facility] Comment on above: Performed By: #### P TT, BMP, HS TROP, PT, CK, BNP, DIFF CBC #### [address] [address] [place] Urea nitrogen [Mass/volume] in Serum or PlasmaOrdered By: Trung Armenta on 03-05-2024 Urea nitrogen [Mass/Vol] 42 mg/dL High 7-25 [facility] Comment on above: Performed By: #### P TT, BMP, HS TROP, PT, CK, BNP, DIFF CBC #### [facility] [address] Urine clarity by refractomet ry automatedOrdered By: Trung Armenta on 03-05-2024 Clarity Refractometry automated (U) Clear Clear [facility] Urine glucose measurement by automated test strip (mass/volume)Ordered By: Trung Armenta on 03-05-2024 Glucose Auto test strip (U) [Mass/Vol] Normal mg/dL Normal [facility] Urine hemoglobin detection b y automated test stripOrdered By: Trung Armenta on 03-05-2024 Hemoglobin Auto test strip Ql (U) Negative Negative [facility] Urine leukocyte esterase det ection by automated test stripOrdered By: Trung Armenta on 03-05-2024 Leukocyte esterase Auto test strip Ql (U) Negative Negative [facility] Urine pH measurement by auto mated test stripOrdered By: Trung Armenat on 03-05-2024 pH (U) 5.5 [pH] Normal 5.0-9.0 [facility] Comment on above: Order Comment: Name Collection Type:: Clean-Voided Midstream Performed By: #### P TT, BMP, HS TROP, PT, CK, BNP, DIFF CBC #### [facility] [address] [place] [address] [place] Urine protein measurement by automated test strip (mass/volume)Ordered By: Trung Armenta on 03-05-2024 Protein (U) [Mass/Vol] 30 mg/dL High Negative [facility] Comment on above: Order Comment: Name Collection Type:: Clean-Voided Midstream Performed By: #### P TT, BMP, HS TROP, PT, CK, BNP, DIFF CBC #### [facility] [address] [place] [address] [place] Urobilinogen Auto test strip (U) [Mass/Vol]Ordered By: Trung Armenta on 03-05-2024 Urobilinogen (U) [Mass/Vol] Normal mg/dL Normal [facility] XR bone surveyon 03-05-2024 XR bone survey [address] [address] XRay Report Signed Patient: Neil Wilcox MR#: [id number] : 1945 Acct:[id number] Age/Sex: 78 / M ADM Date: 03/05/24 Loc: Room: [address] [place] [address] Type: ADM IN Attending Dr: Roslyn Townsend [...] Tobias Tracy M.D.03/05/2024 6:02 PM Dictation Location: [place] [address] Transcribed By: [facility] 03/05/241801 Dictated By: Tobias Tracy DO 03/05/241755 Signed By: 03/05/241801 Normal [facility] XR chest 2V*on 03-05-2024 XR chest 2V* [address] [address] XRay Report Signed Patient: Neil Wilcox MR#: [id number] : 1945 Acct:[id number] Age/Sex: 78 / M ADM Date: 03/05/24 Loc: ER Room: Type: [facility] ER Attending Dr: Copies to: Trung Armenta [...] Tobias Tracy M.D.03/05/2024 12:34 PM Dictation Location: [place] [address] Transcribed By: [facility] 03/05/24 1234 Dictated By: Tobias Tracy DO 03/05/24 1230 Signed By: 03/05/24 1234 Normal [facility] [place]ILA Antinuclear Antibodieson 02-26-2024 Antinuclear Abs, IFA Positive Critically abnormal . [facility] Comment on above: Result Comment: Nega tive <1:80 Borderline 1:80 Positive >1:80 Performed By: #### P TT, BMP, HS TROP, PT, CK, BNP, DIFF CBC #### [facility] [address] Homogeneous Pattern 1:320 High . [facility] Comment on above: Result Comment: ICAP nomenclature: AC-1 Performed By: #### P TT, BMP, HS TROP, PT, CK, BNP, DIFF CBC #### [facility] [address] Note 1 Normal . [facility] Comment on above: Result Comment: Yamel bah Potential Disease Association Homogeneous Systemic Lupus Erythematosus, Drug Induced Systemic Lupus Erythematosus, Chronic Autoimmune hepatitis, Juvenile Idiopathic Arthritis Speckled Sjogren Syndrome, Systemic Lupus Erythematosus, Subacute Cutaneous Lupus, Lupus, Congenital Heart Block, Mixed Connective Tissue Disease, Scleroderma-diffuse, Scleroderma-Autoimmune Myositis Overlap Syndrome, Systemic Lupus Kipiiksnbabef-Sgljtwjcgae-Yphjiokbzj Myositis Overlap Syndrome, Systemic Autoimmune Rheumatic Disease, [...] Scleroderma, Antiphospholipid Syndrome Performed at: - [facility] [address] [id number] Brilliandeer Looper: J Carlos Blackman PhD, Phone: [phone] Performed By: #### P TT, BMP, HS TROP, PT, CK, BNP, DIFF CBC #### [address] Absolute reticulocyte countO rdered By: Bertha Cuevas on 02-26-2024 Reticulocytes (Bld) [#/Vol] 0.002 10*6/uL Low 0.024-0.08 4 [facility] Alanine aminotransferase [En zymatic activity/volume] in Serum or PlasmaOrdered By: Bertha Cuevas on 02-26-2024 ALT [Catalytic activity/Vol] 10 U/L Normal 7-52 [facility] Comment on above: Performed By: #### P TT, BMP, HS TROP, PT, CK, BNP, DIFF CBC #### [address] Albumin [Mass/volume] in Ser um or PlasmaOrdered By: Bertha Cuevas on 02-26-2024 Albumin [Mass/Vol] 3.4 g/dL Normal 2.9-4.4 [facility] Comment on above: Performed By: #### P TT, BMP, HS TROP, PT, CK, BNP, DIFF CBC #### [place] [address] [place] Albumin [Mass/volume] in Ser um or Plasma by Bromocresol green (BCG) dye binding methoOrdered By: Bertha Cuevas on 02-26-2024 Albumin BCG dye [Mass/Vol] 3.5 g/dL 3.5-5.7 [facility] Alkaline phosphatase [Enzyma tic activity/volume] in Serum or PlasmaOrdered By: Bertha Cuevas on 02-26-2024 ALP [Catalytic activity/Vol] 71 U/L Normal 34-104 [facility] Comment on above: Performed By: #### P TT, BMP, HS TROP, PT, CK, BNP, DIFF CBC #### [facility] [address] Anisocytosis [Presence] in B lood by Light microscopyOrdered By: Bertha Cuevas on 02-26-2024 Anisocytosis Ql (Bld) Marked Normal [facility] Comment on above: Performed By: #### P TT, BMP, HS TROP, PT, CK, BNP, DIFF CBC #### [address] Aspartate aminotransferase [ Enzymatic activity/volume] in Serum or PlasmaOrdered By: Bertha Cuevas on 02-26-2024 AST [Catalytic activity/Vol] 12 U/L Low 13-39 [facility] Comment on above: Performed By: #### P TT, BMP, HS TROP, PT, CK, BNP, DIFF CBC #### [address] Automated basophil %Ordered By: Bertha Cuevas on 02-26-2024 Basophils/100 WBC (Bld) 0.2 % Normal . [facility] Comment on above: Performed By: #### P TT, BMP, HS TROP, PT, CK, BNP, DIFF CBC #### [address] Automated basophil countOrde red By: Bertha Cuevas on 02-26-2024 Basophils (Bld) [#/Vol] 0.0 10*3/uL Normal 0.0-0.2 [facility] [facility] Comment on above: Performed By: #### P TT, BMP, HS TROP, PT, CK, BNP, DIFF CBC #### [address] Automated blood monocyte cou ntOrdered By: Bertha Cuevas on 02-26-2024 Monocytes (Bld) [#/Vol] 0.0 10*3/uL Normal 0.0-0.8 [facility] Comment on above: Performed By: #### P TT, BMP, HS TROP, PT, CK, BNP, DIFF CBC #### [address] Automated eosinophil %Ordere d By: Bertha Lockhartjaime on 02-26-2024 Eosinophils/100 WBC (Bld) 10.5 % Normal . [facility] Comment on above: Performed By: #### P TT, BMP, HS TROP, PT, CK, BNP, DIFF CBC #### [facility] [address] Automated eosinophil countOr dered By: Endyartem DyeAndrewlara on 02-26-2024 Eosinophils (Bld) [#/Vol] 0.3 10*3/uL Normal 0.0-0.45 [facility] Comment on above: Performed By: #### P TT, BMP, HS TROP, PT, CK, BNP, DIFF CBC #### [facility] [address] Automated monocyte %Ordered By: Endyartem Ernielara on 02-26-2024 Monocytes/100 WBC (Bld) 1.4 % Normal . [facility] Comment on above: Performed By: #### P TT, BMP, HS TROP, PT, CK, BNP, DIFF CBC #### [facility] [address] Automated neutrophil %Ordere d By: Endyartem Ernielara on 02-26-2024 Neutrophils/100 WBC (Bld) 44.9 % Normal . [facility] Comment on above: Performed By: #### P TT, BMP, HS TROP, PT, CK, BNP, DIFF CBC #### [facility] [address] [place] [address] Basophil percentageOrdered B y: Endyartem Ernielara on 02-26-2024 Basophil percentage 109 ug/dL 69-132 [facility] Comment on above: This test was develo ped and its performance characteristicsdetermined by [facility]. It has not been cleared orapproved by the Food and Drug Administration. Detection Limit = 5Performed at: [facility] [address] [id number] Director: Mary Jane Maya MD, Phone: [phone] Bilirubin.total [Mass/volume ] in Serum or PlasmaOrdered By: Bertha Cuevas on 02-26-2024 Bilirubin [Mass/Vol] 0.8 mg/dL Normal 0.3-1.0 [facility] Comment on above: Performed By: #### P TT, BMP, HS TROP, PT, CK, BNP, DIFF CBC #### [address] Blood platelet glycoprotein Ib/IX IgG antibody detection by immunoassayOrdered By: Bertha Cuevas on 02-26-2024 Platelet glycoprotein Ib/Ix IgG IA Ql (Bld) Negative Negative [facility] Calcium [Mass/volume] in Ser um or PlasmaOrdered By: Bertha Cuevas on 02-26-2024 Calcium [Mass/Vol] 12.1 mg/dL High 8.6-10.3 [facility] Comment on above: Performed By: #### P TT, BMP, HS TROP, PT, CK, BNP, DIFF CBC #### [address] Carbon dioxide, total [Moles /volume] in Serum or PlasmaOrdered By: Bertha Pearce on 02-26-2024 CO2 [Moles/Vol] 25.2 mmol/L Normal 21.0-31.0 [facility] Comment on above: Performed By: #### P TT, BMP, HS TROP, PT, CK, BNP, DIFF CBC #### [address] Chloride [Moles/volume] in S dustin or PlasmaOrdered By: Bertha Cuevas on 02-26-2024 Chloride [Moles/Vol] 104 mmol/L Normal 98-107 [facility] Comment on above: Performed By: #### P TT, BMP, HS TROP, PT, CK, BNP, DIFF CBC #### [address] Comprehensive Metabolic Pane melvin 02-26-2024 Albumin [Mass/Vol] 3.5 g/dL Normal 3.5-5.7 [facility] Comment on above: Performed By: #### P TT, BMP, HS TROP, PT, CK, BNP, DIFF CBC #### [facility] [address] Creatinine Clr Calc Pharmacy 43.64 Normal [facility] Comment on above: Performed By: #### P TT, BMP, HS TROP, PT, CK, BNP, DIFF CBC #### [address] GFR/1.73 sq M.predicted MDRD (S/P/Bld) [Vol rate/Area] 50.358 mL/min/{1.73_m2} Normal [facility] Comment on above: Performed By: #### P TT, BMP, HS TROP, PT, CK, BNP, DIFF CBC #### [address] Copperon 02-26-2024 Copper 109 ug/dL Normal 69-132 [facility] Comment on above: Result Comment: This test was developed and its performance characteristics determined by [employer]. It has not been cleared or approved by the Food and Drug Administration. Detection Limit = 5 Performed at: [facility] [address] [id number] Brilliandeer Looper: Mary Jane Maya MD, Phone: [phone] Performed By: #### P TT, BMP, HS TROP, PT, CK, BNP, DIFF CBC #### [address] Creatinine [Mass/volume] in Serum or PlasmaOrdered By: Bertha Cuevas on 02-26-2024 Creatinine [Mass/Vol] 1.44 mg/dL High 0.70-1.30 [facility] Comment on above: Performed By: #### P TT, BMP, HS TROP, PT, CK, BNP, DIFF CBC #### [address] Cytogenetics Neogenomicon Cytogenetics Neogenomic Normal [facility] Comment on above: Result Comment: See report. Scanned copy available in EMR. Performed By: #### P TT, BMP, HS TROP, PT, CK, BNP, DIFF CBC #### [facility] [address] [place] [address] Direct Coombson 02-26-2024 Polyspecific AHG Negative Normal Negative [facility] Comment on above: Result Comment: PERF ORMED BY: [place] [address] PATHOLOGIST GENERAL OPHTHALMOLOGIST OTTO HARLEY M.D. Erythrocyte distribution wid th [Ratio] by Automated countOrdered By: Bertha Pearce on 02-26-2024 Erythrocyte distribution width (RBC) [Ratio] 20.0 % High 12.0-14.8 [facility] Comment on above: Performed By: #### P TT, BMP, HS TROP, PT, CK, BNP, DIFF CBC #### [facility] [address] [place] [address] Erythrocytes [#/volume] in B lood by Automated countOrdered By: Bertha Cuevas on 02-26-2024 RBC (Bld) [#/Vol] 2.60 10*6/uL Low 3.90-5.60 [facility] Comment on above: Performed By: #### P TT, BMP, HS TROP, PT, CK, BNP, DIFF CBC #### [facility] [address] [place] [address] Ferritin [Mass/volume] in Se rum or PlasmaOrdered By: Bertha Cuevas on 02-26-2024 Ferritin [Mass/Vol] 720.3 ng/mL High 23.9-336.2 [facility] Comment on above: Performed By: #### P TT, BMP, HS TROP, PT, CK, BNP, DIFF CBC #### [facility] [address] [place] [address] Fish Not Bladder Neogenomico n 02-26-2024 Fish Not Bladder Neogenomic Normal [facility] Comment on above: Result Comment: See report. Scanned copy available in EMR. PERFORMED BY: [place] [address] PATHOLOGIST GENERAL OPHTHALMOLOGIST OTTO HARLEY M.D. Performed By: #### P TT, BMP, HS TROP, PT, CK, BNP, DIFF CBC #### [facility] [address] Flowcytometry Neogenomicon 0 02-26-2024 Flowcytometry Neogenomic Normal [facility] Comment on above: Result Comment: See report. Scanned copy available in EMR.See report. Scanned copy available in EMR. --- 03/03/24 0759 --- Flow Neogenomic previously reported as: See report. Scanned copy available in EMR. Performed By: #### P TT, BMP, HS TROP, PT, CK, BNP, DIFF CBC #### [address] Folate [Mass/volume] in Seru m or PlasmaOrdered By: Bertha Cuevas on 02-26-2024 Folate [Mass/Vol] ng/mL >5.9 [facility] Comment on above: Folate reference ran ge: >5.9 ng/mlThe WHO technical consultation on folate and vitamin [id number] has determined that folate concentrations lessthan 4 ng/ml are considered deficient. Free K+L LT Chains, Qn, Son 02-26-2024 Free Lockney Light Chains, S 1354.4 mg/L High 3.3-19.4 [facility] Comment on above: Performed By: #### P TT, BMP, HS TROP, PT, CK, BNP, DIFF CBC #### [address] Free Lambda Light Chains, S 10.1 mg/L Normal 5.7-26.3 [facility] Comment on above: Performed By: #### P TT, BMP, HS TROP, PT, CK, BNP, DIFF CBC #### [facility] [address] [place] [address] [place] Lockney/Lambda Ratio, S 134.10 High 0.26-1.65 [facility] Comment on above: Result Comment: Perf ormed at: CB - [facility] [address] [id number] Brilliandeer Looper: J Carlos Blackman PhD, Phone: [phone] PERFORMED BY: [place] [address] PATHOLOGIST GENERAL OPHTHALMOLOGIST OTTO HARLEY M.D. Performed By: #### P TT, BMP, HS TROP, PT, CK, BNP, DIFF CBC #### [facility] [address] Glucose [Mass/volume] in Ser um or PlasmaOrdered By: Bertha Cuevas on 02-26-2024 Glucose [Mass/Vol] 104 mg/dL High 70-100 [facility] Comment on above: ADA recommended refe rence rangeRandom Glucose Reference Range is dependent on time and content of last meal. Glucose of more than 200 mg/dL in a nonstressed, ambulatory subject supports the diagnosis of Diabetes Mellitus. Result Comment: [place] om Glucose Reference Range is dependent on time and content of last meal. Glucose of more than 200 mg/dL in a nonstressed, ambulatory subject supports the diagnosis of Diabetes Mellitus. ADA recommended reference range Performed By: #### P TT, BMP, HS TROP, PT, CK, BNP, DIFF CBC #### [facility] [address] [place] [id number] [facility] HIV 1/O/2 Antigen/Antibodyon 02-26-2024 HIV Screen 4th Generation Non-Reactive Normal Non Reactive [facility] Comment on above: Result Comment: HIV Negative HIV-1/HIV-2 antibodies and HIV-1 p24 antigen were NOT detected. There is no laboratory evidence of HIV infection. Performed at: - [facility] [id number] Brilliandeer Looper: J Carlos Blackman PhD, Phone: [phone] Performed By: #### P TT, BMP, HS TROP, PT, CK, BNP, DIFF CBC #### [facility] [address] HIV 1 and HIV-2 antibody ass ay with HIV-1 p24 antigen detectionOrdered By: Bertha Cuevas on 02-26-2024 HIV 1+2 Ab+HIV1 p24 Ag IA Ql Non-Reactive Non Reactive [facility] Comment on above: HIV NegativeHIV-1/HI V-2 antibodies and HIV-1 p24 antigen were NOTdetected. There is no laboratory evidence of HIV infection.Performed at: - [facility] [place], [place] [id number] Director: J Carlos Blackman PhD, Phone: [phone] Hematocrit [Volume Fraction] of Blood by Automated countOrdered By: Bertha Pearce on 02-26-2024 Hematocrit (Bld) [Volume fraction] 27.0 % Low 38.8-50.0 [facility] Comment on above: Performed By: #### P TT, BMP, HS TROP, PT, CK, BNP, DIFF CBC #### [address] Hemoglobin [Mass/volume] in BloodOrdered By: Bertha Cuevas on 02-26-2024 Hemoglobin (Bld) [Mass/Vol] 9.3 g/dL Low 13.0-17.0 [facility] Comment on above: Performed By: #### P TT, BMP, HS TROP, PT, CK, BNP, DIFF CBC #### [address] Hep C Ab wRfx to Qnt PCRon 0 02-26-2024 Hepatitis C Virus Antibody Non-Reactive Normal Non Reactive [facility] Comment on above: Performed By: #### P TT, BMP, HS TROP, PT, CK, BNP, DIFF CBC #### [address] Interpretation Hepatitis C Normal . [facility] Comment on above: Result Comment: Not infected with HCV unless early or acute infection is suspected (which may be delayed in an immunocompromised individual), or other evidence exists to indicate HCV infection. Performed By: #### P TT, BMP, HS TROP, PT, CK, BNP, DIFF CBC #### [address] Hepatitis B Core Antibodyon 02-26-2024 Hepatitis B Core Antibody Positive Critically abnormal Negative [facility] Comment on above: Result Comment: Perf ormed at: - [facility] [address] [place], [place] [id number] Brilliandeer Looper: J Carlos Blackman PhD, Phone: [phone] Performed By: #### P TT, BMP, HS TROP, PT, CK, BNP, DIFF CBC #### [facility] [address] Hepatitis B Surface Antibody on 02-26-2024 Hepatitis B Surface Antibody Reactive Normal . [facility] Comment on above: Result Comment: Non Reactive: Inconsistent with immunity, less than 10 mIU/mL Reactive: Consistent with immunity, greater than 9.9 mIU/mL Performed By: #### P TT, BMP, HS TROP, PT, CK, BNP, DIFF CBC #### [facility] [address] Hepatitis B Surface Antigeno n 02-26-2024 HBsAg Screen Negative Normal Negative [facility] Comment on above: Result Comment: PERF ORMED BY: [place] [address] PATHOLOGIST GENERAL OPHTHALMOLOGIST OTTO HARLEY M.D. Performed By: #### P TT, BMP, HS TROP, PT, CK, BNP, DIFF CBC #### [address] Hepatitis B virus surface Ab [Presence] in SerumOrdered By: Bertha Cuevas on 02-26-2024 HBV surface Ab Ql (S) Reactive . [facility] Comment on above: Non Reactive: Incons istent with immunity, less than 10 mIU/mL Reactive: Consistent with immunity, greater than 9.9 mIU/mL Hepatitis B virus surface Ag [Presence] in Serum or Plasma by ImmunoassayOrdered By: Bertha Cuevas on 02-26-2024 HBV surface Ag IA Ql Negative Negative [facility] Hepatitis C virus IgG Ab [Pr esence] in Serum or Plasma by ImmunoassayOrdered By: Bertha Cuevas on 02-26-2024 HCV IgG IA Ql Non-Reactive Non Reactive [facility] IgA [Mass/volume] in Serum o r PlasmaOrdered By: Bertha Cuevas on 02-26-2024 IgA [Mass/Vol] 3828 mg/dL High 61-437 [facility] Comment on above: Results confirmed on dilution. IgG [Mass/volume] in Serum o r PlasmaOrdered By: Bertha Cuevas on 02-26-2024 IgG [Mass/Vol] 667 mg/dL 603-1613 [facility] IgM [Mass/volume] in Serum o r PlasmaOrdered By: Bertha Cuevas on 02-26-2024 IgM [Mass/Vol] 16 mg/dL 15-143 [facility] Comment on above: Result confirmed on concentration.Performed at: [facility] [address] [id number] Director: J Carlos Blackman PhD, Phone: [phone] Immunofixation,Serumon 02-25 Immunofixation, Serum Abnormal . [facility] Comment on above: Result Comment: Immu nofixation shows IgA monoclonal protein with kappa light chain specificity. Performed By: #### P TT, BMP, HS TROP, PT, CK, BNP, DIFF CBC #### [facility] [address] [place] [address] [place] Immunoglobulin A, Serum 3828 mg/dL High 61-437 [facility] Comment on above: Result Comment: Resu lts confirmed on dilution. Performed By: #### P TT, BMP, HS TROP, PT, CK, BNP, DIFF CBC #### [facility] [address] [place] [address] [place] Immunoglobulin G 667 mg/dL Normal 603-1613 [facility] Comment on above: Performed By: #### P TT, BMP, HS TROP, PT, CK, BNP, DIFF CBC #### [facility] [address] [place] [address] [place] Immunoglobulin M, Serum 16 mg/dL Normal 15-143 [facility] Comment on above: Result Comment: Resu lt confirmed on concentration. Performed at: [facility] [address] [place], [place] [id number] Brilliandeer Looper: J Carlos Blackman PhD, Phone: [phone] Performed By: #### P TT, BMP, HS TROP, PT, CK, BNP, DIFF CBC #### [address] [address] [place] Immunoglobulin light chains. kappa.free [Mass/volume] in SerumOrdered By: Bertha Cuevas on 02-26-2024 Immunoglobulin light chains.kappa.free (S) [Mass/Vol] 1354.4 mg/L High 3.3-19.4 [facility] Immunoglobulin light chains. kappa.free/Immunoglobulin light chains.lambda.free [MassOrdered By: Bertha Cuevas on 02-26-2024 Immunoglobulin light chains.kappa.free/Immu noglobulin light chains.lambda.free (S) [Mass ratio] 134.10 High 0.26-1.65 [facility] Comment on above: Performed at: [address] [id number] Director: J Carlos Blackman PhD, Phone: [phone] Immunoglobulin light chains. lambda.free [Mass/volume] in Serum or PlasmaOrdered By: Bertha Cuevas on 02-26-2024 Immunoglobulin light chains.lambda.free [Mass/Vol] 10.1 mg/L 5.7-26.3 [facility] Iron [Mass/volume] in Serum or PlasmaOrdered By: Bertha Cuevas on 02-26-2024 Iron [Mass/Vol] 139 ug/dL Normal 50-212 [facility] Comment on above: Performed By: #### P TT, BMP, HS TROP, PT, CK, BNP, DIFF CBC #### [facility] [address] [place] [address] Iron and TIBC Profileon 06 % Iron Saturation 64.1 % High 20-50 [facility] Comment on above: Performed By: #### P TT, BMP, HS TROP, PT, CK, BNP, DIFF CBC #### [facility] [address] [place] [id number] [facility] Total Iron Binding Capacity 217 ug/dL Low 255-450 [facility] Comment on above: Performed By: #### P TT, BMP, HS TROP, PT, CK, BNP, DIFF CBC #### [facility] [address] [place] [id number] [facility] Iron binding capacity [Mass/ volume] in Serum or PlasmaOrdered By: Bertha Cuevas on 02-26-2024 Iron binding capacity [Mass/Vol] 217 ug/dL Low 255-450 [facility] Iron saturation [Mass Fracti on] in Serum or PlasmaOrdered By: Bertha Cuevas on 02-26-2024 Iron saturation [Mass fraction] 64.1 % High 20-50 [facility] LDH Lactate Dehydrogenaseon 02-26-2024 LDH Lactate Dehydrogenase 118 U/L Low 140-271 [facility] Comment on above: Performed By: #### P TT, BMP, HS TROP, PT, CK, BNP, DIFF CBC #### [facility] [address] Laboratory - Chemistry and C hemistry - challengeOrdered By: Bertha Cuevas on 02-26-2024 Protein [Mass/Vol] 3.7 g/dL High Not Observed [facility] Lactate dehydrogenase [Enzym atic activity/volume] in Serum or Plasma by Lactate to pyOrdered By: Bertha Cuevas on 02-26-2024 LDH Lactate to pyruvate reaction [Catalytic activity/Vol] 118 U/L Low 140-271 [facility] Leukocytes [#/volume] correc myrtle for nucleated erythrocytes in Blood by Automated counOrdered By: Bertha Cuevas on 02-26-2024 WBC corrected for nucl RBC Auto (Bld) [#/Vol] 2.5 10*3/uL Low 4.1-10.5 [facility] Leukocytes [#/volume] in Blo od by Automated countOrdered By: Bertha Cuevas on 02-26-2024 WBC (Bld) [#/Vol] 2.5 10*3/uL Low 4.1-10.5 [facility] Comment on above: Performed By: #### P TT, BMP, HS TROP, PT, CK, BNP, DIFF CBC #### [facility] [address] [place] [address] [place] Lymphocytes [#/volume] in Bl ood by Automated countOrdered By: Bertha Cuevas on 02-26-2024 Lymphocytes (Bld) [#/Vol] 1.1 10*3/uL Normal 1.00-4.8 [facility] Comment on above: Performed By: #### P TT, BMP, HS TROP, PT, CK, BNP, DIFF CBC #### [facility] [address] [place] [address] Lymphocytes/100 leukocytes i n Blood by Automated countOrdered By: Bertha Cuevas on 02-26-2024 Lymphocytes/100 WBC (Bld) 43.0 % Normal . [facility] Comment on above: Performed By: #### P TT, BMP, HS TROP, PT, CK, BNP, DIFF CBC #### [address] MCH [Entitic mass] by Automa myrtle countOrdered By: Bertha Cuevas on 02-26-2024 MCH (RBC) [Entitic mass] 35.7 pg High 27.5-35.2 [facility] Comment on above: Performed By: #### P TT, BMP, HS TROP, PT, CK, BNP, DIFF CBC #### [facility] [address] [place] [address] MCHC Auto (RBC) [Mass/Vol]Or dered By: Bertha Cuevas on 02-26-2024 MCHC (RBC) [Mass/Vol] 34.4 g/dL 32.5-35.6 [facility] MCV [Entitic volume] by Auto mated countOrdered By: Bertha Cuevas on 02-26-2024 MCV (RBC) [Entitic vol] 103.8 fL High 83.5-101 [facility] Comment on above: Performed By: #### P TT, BMP, HS TROP, PT, CK, BNP, DIFF CBC #### [facility] [address] [place] [address] Macrocytes LM Ql (Bld)Ordere d By: Bertha Cuevas on 02-26-2024 Macrocytes Ql (Bld) Slight [facility] Neutrophils [#/volume] in Bl ood by Automated countOrdered By: Bertha Cuevas on 02-26-2024 Neutrophils (Bld) [#/Vol] 1.1 10*3/uL Low 1.8-7.7 [facility] Comment on above: Performed By: #### P TT, BMP, HS TROP, PT, CK, BNP, DIFF CBC #### [facility] [address] No Panel InformationOrdered By: Bertha Cuevas on 02-26-2024 Anti-Nuclear Antibody Comment 2 See comment . [facility] Comment on above: Pattern Potential Di sease Association Homogeneous Systemic Lupus Erythematosus, Drug Induced Systemic Lupus Erythematosus, Chronic Autoimmune hepatitis, Juvenile Idiopathic Arthritis Speckled Sjogren Syndrome, Systemic Lupus Erythematosus, Subacute Cutaneous Lupus, Lupus, Congenital Heart Block, Mixed Connective Tissue Disease, Scleroderma-diffuse, Scleroderma-Autoimmune Myositis Overlap Syndrome, Systemic Lupus Ioqazkvbxvfbg-Edytsxahpmi-Uxdxrufzhd Myositis Overlap Syndrome, Systemic Autoimmune Rheumatic Disease, [...] Cytopenias, Linear Scleroderma, Antiphospholipid Syndrome Performed at: [facility] [address] [id number] Director: J Carlos Blackman PhD, Phone: [phone] Anti-Platelet Glycoprotein IV Negative Negative [facility] Comment on above: Performed at: [employer] [address] [id number] Director: Mary Jane Maya MD, Phone: [phone] Comment (FISH) See comment [facility] Comment on above: See report. Scanned copy available in EMR. Estimated GFR (CKD-EPI) 50.358 mL/Min [facility] Hepatitis B Core Total Antibody Positive Abnormal Negative [facility] Comment on above: Performed at: [employer] [address] [id number] Director: J Carlos Blackman PhD, Phone: [phone] Hepatitis C Interpretation See comment . [facility] Comment on above: Not infected with HC V unless early or acute infection issuspected (which may be delayed in an immunocompromisedindividual), or other evidence exists to indicate HCVinfection. Pharmacy Creatinine Clearance (Chem 43.64 [facility] Protein Electrophoresis Note See comment . [facility] Comment on above: Protein electrophore sis scan will follow via computer,mail, or financial aid coordinator delivery.Performed at: [facility] [address] [id number] Director: J Carlos Blackman PhD, Phone: [phone] Serum Immunofixation See comment Abnormal . [facility] Comment on above: Immunofixation shows IgA monoclonal protein with kappalight chain specificity. Nucleated erythrocytes [Pres ence] in Blood by Automated countOrdered By: Bertha Cuevas on 02-26-2024 Nucleated RBC Auto Ql (Bld) 0.2 /100{WBC} 0-0.5 [facility] Platelet Antibody, Serumon 0 02-26-2024 GLycoprotein IV Antibody Negative Normal Negative [facility] Comment on above: Result Comment: Perf ormed at: BN - [facility] [address] [id number] Brilliandeer Looper: Mary Jane Maya MD, Phone: [phone] Performed By: #### P TT, BMP, HS TROP, PT, CK, BNP, DIFF CBC #### [facility] [address] Hla Class 1 Antibody Negative Normal Negative [facility] Comment on above: Performed By: #### P TT, BMP, HS TROP, PT, CK, BNP, DIFF CBC #### [facility] [address] [place] [address] [place] Ia/IIa Antibodies Negative Normal Negative [facility] Comment on above: Performed By: #### P TT, BMP, HS TROP, PT, CK, BNP, DIFF CBC #### [facility] [address] [place] [address] [place] Ib/IX Antibody Negative Normal Negative [facility] Comment on above: Performed By: #### P TT, BMP, HS TROP, PT, CK, BNP, DIFF CBC #### [facility] [address] [place] [address] [place] IIb/IIIa Antibody Negative Normal Negative [facility] Comment on above: Performed By: #### P TT, BMP, HS TROP, PT, CK, BNP, DIFF CBC #### [facility] [address] [place] [address] [place] Platelet adequacy [Presence] in Blood by Light microscopyOrdered By: Bertha Pearce on 02-26-2024 Platelets LM Ql (Bld) Decreased Normal [facility] [facility] Platelet mean volume [Entiti c volume] in Blood by Automated countOrdered By: Bertha Cuevas on 02-26-2024 Platelet mean volume (Bld) [Entitic vol] 7.0 fL Normal 6.6-10.1 [facility] Comment on above: Performed By: #### P TT, BMP, HS TROP, PT, CK, BNP, DIFF CBC #### [facility] [address] [place] [address] Platelet morphology finding [Identifier] in BloodOrdered By: Bertha Cuevas on 02-26-2024 Platelet morphology finding Nom (Bld) Normal Normal [facility] Platelets [#/volume] in Bloo d by Automated countOrdered By: Bertha Cuevas on 02-26-2024 Platelets (Bld) [#/Vol] 83 10*3/uL Low 150-450 [facility] Comment on above: Performed By: #### P TT, BMP, HS TROP, PT, CK, BNP, DIFF CBC #### [address] Potassium [Moles/volume] in Serum or PlasmaOrdered By: Bertha Cuevas on 02-26-2024 Potassium [Moles/Vol] 4.2 mmol/L Normal 3.5-5.1 [facility] Comment on above: Performed By: #### P TT, BMP, HS TROP, PT, CK, BNP, DIFF CBC #### [facility] [address] [place] [address] [place] Protein Electrophoresis, Ser umon 02-26-2024 Tjjzu-8-Uzperlqr 0.3 g/dL Normal 0.0-0.4 [facility] Comment on above: Performed By: #### P TT, BMP, HS TROP, PT, CK, BNP, DIFF CBC #### [address] Yfsvc-0-Flxbjdjn 0.9 g/dL Normal 0.4-1.0 [facility] Comment on above: Performed By: #### P TT, BMP, HS TROP, PT, CK, BNP, DIFF CBC #### [facility] [address] Beta Globulin 4.4 g/dL High 0.7-1.3 [facility] Comment on above: Performed By: #### P TT, BMP, HS TROP, PT, CK, BNP, DIFF CBC #### [facility] [address] Gamma Globulin 0.6 g/dL Normal 0.4-1.8 [facility] Comment on above: Performed By: #### P TT, BMP, HS TROP, PT, CK, BNP, DIFF CBC #### [facility] [address] M-Kody 3.7 g/dL High Not Observed [facility] Comment on above: Performed By: #### P TT, BMP, HS TROP, PT, CK, BNP, DIFF CBC #### [address] SPE-Note Normal . [facility] Comment on above: Result Comment: Prot ein electrophoresis scan will follow via computer, mail, or financial aid coordinator delivery. Performed at: - [facility] [place] [id number] Brilliandeer Looper: J Carlos Blackman PhD, Phone: [phone] Performed By: #### P TT, BMP, HS TROP, PT, CK, BNP, DIFF CBC #### [address] Protein [Mass/volume] in Ser um or PlasmaOrdered By: Bertha Cuevas on 02-26-2024 Protein [Mass/Vol] 9.9 g/dL High 6.4-8.9 [facility] Comment on above: Performed By: #### P TT, BMP, HS TROP, PT, CK, BNP, DIFF CBC #### [address] Protein [Mass/Vol] 9.6 g/dL High 6.0-8.5 [facility] Comment on above: Performed By: #### P TT, BMP, HS TROP, PT, CK, BNP, DIFF CBC #### [address] RBC morphologyOrdered By: Endy Cuevas on 02-26-2024 RBC morphology finding Nom (Bld) Normal Normal Normal [facility] Comment on above: Performed By: #### P TT, BMP, HS TROP, PT, CK, BNP, DIFF CBC #### [address] Reticulocyte Counton 024 Reticulocyte Number 0.002 10*6/uL Low 0.024-0 .08 4 [facility] Comment on above: Result Comment: PERF ORMED BY: [place] [address] PATHOLOGIST GENERAL OPHTHALMOLOGIST OTTO HARLEY M.D. Performed By: #### P TT, BMP, HS TROP, PT, CK, BNP, DIFF CBC #### [address] Reticulocyte Percent 0.1 % Low 0.5-1.5 [facility] Comment on above: Performed By: #### P TT, BMP, HS TROP, PT, CK, BNP, DIFF CBC #### [address] Reticulocytes/100 RBC Auto ( Bld)Ordered By: Bertha Cuevas on 02-26-2024 Reticulocytes/100 RBC (Bld) 0.1 % Low 0.5-1.5 [facility] Rheumatoid Factoron 02-26-20 24 Rheumatoid Factor 12.8 Normal <14.0 [facility] Comment on above: Performed By: #### P TT, BMP, HS TROP, PT, CK, BNP, DIFF CBC #### [address] Scan and CBCon 02-26-2024 Macrocytosis Slight Normal [facility] Comment on above: Performed By: #### P TT, BMP, HS TROP, PT, CK, BNP, DIFF CBC #### [address] Mean Corpuscular HGB Conc 34.4 g/dL Normal 32.5-35.6 [facility] Comment on above: Performed By: #### P TT, BMP, HS TROP, PT, CK, BNP, DIFF CBC #### [address] NRBC% 0.2 /100{WBC} Normal 0-0.5 [facility] Comment on above: Performed By: #### P TT, BMP, HS TROP, PT, CK, BNP, DIFF CBC #### [address] Platelet Estimate Decreased Normal Normal [facility] Comment on above: Performed By: #### P TT, BMP, HS TROP, PT, CK, BNP, DIFF CBC #### [address] Platelet Morphology Normal Normal Normal [facility] Comment on above: Performed By: #### P TT, BMP, HS TROP, PT, CK, BNP, DIFF CBC #### [address] Serum HLA antibody detection by immunoassayOrdered By: Bertha Cuevas on 02-26-2024 HLA Ab IA Ql (S) Negative Negative [facility] Serum angiotensin converting enzyme (SADIE) measurementOrdered By: Bertha Cuevas on 02-26-2024 Angiotensin converting enzyme [Catalytic activity/Vol] 25 U/L Normal 14-82 [facility] Comment on above: Performed at: CB - [facility] [place] [address]Lab Director: J Carlos Blackman PhD, Phone: [phone] Result Comment: Perf ormed at: CB - [facility] [place] [id number] Brilliandeer Looper: J Carlos Blackman PhD, Phone: [phone] Performed By: #### P TT, BMP, HS TROP, PT, CK, BNP, DIFF CBC #### [address] Serum globulin measurement ( mass/volume)Ordered By: Bertha Cuevas on 02-26-2024 Globulin (S) [Mass/Vol] 6.2 g/dL High 2.2-3.9 [facility] Comment on above: Performed By: #### P TT, BMP, HS TROP, PT, CK, BNP, DIFF CBC #### [facility] [address] Serum globulin measurement b y calculation (mass/volume)Ordered By: Bertha Pearce on 02-26-2024 Globulin (S) [Mass/Vol] 6.4 g/dL Normal [facility] Comment on above: Performed By: #### P TT, BMP, HS TROP, PT, CK, BNP, DIFF CBC #### [facility] [address] Serum homogeneous pattern an tinuclear antibody (CAMILA) titerOrdered By: Bertha Pearce on 02-26-2024 Homogenous nuclear Ab pattern (S) [Titer] 1:320 High . [facility] Comment on above: ICAP nomenclature: A C-1 Serum nuclear antibody titer Ordered By: Bertha Cuevas on 02-26-2024 Nuclear Ab (S) [Titer] Positive Abnormal . [facility] Comment on above: Negative <1:80 Borde rline 1:80 Positive >1:80 Serum or plasma albumin/glob ulin mass ratioOrdered By: Bertha Cuevas on 02-26-2024 Albumin/Globulin [Mass ratio] 0.5 {ratio} Low 0.7-1.7 [facility] Comment on above: Performed By: #### P TT, BMP, HS TROP, PT, CK, BNP, DIFF CBC #### [facility] [address] Serum or plasma alpha 1 glob ulin measurement by electrophoresis (mass/volume)Ordered By: Bertha Cuevas on 02-26-2024 Alpha 1 globulin Elph [Mass/Vol] 0.3 g/dL 0.0-0.4 [facility] Serum or plasma alpha 2 glob ulin measurement by electrophoresis (mass/volume)Ordered By: Bertha Cuevas on 02-26-2024 Alpha 2 globulin Elph [Mass/Vol] 0.9 g/dL 0.4-1.0 [facility] Serum or plasma anion gap de terminationOrdered By: Bertha Cuevas on 02-26-2024 Anion gap [Moles/Vol] 16.0 mmol/L High 6.0-15.0 [facility] Comment on above: Performed By: #### P TT, BMP, HS TROP, PT, CK, BNP, DIFF CBC #### [facility] [address] Serum or plasma beta globuli n measurement by electrophoresis (mass/volume)Ordered By: Bertha Cuevas on 02-26-2024 Beta globulin Elph [Mass/Vol] 4.4 g/dL High 0.7-1.3 [facility] Serum or plasma gamma globul in measurement by electrophoresis (mass/volume)Ordered By: Bertha Cuevas on 02-26-2024 Gamma globulin Elph [Mass/Vol] 0.6 g/dL 0.4-1.8 [facility] Serum or plasma rheumatoid f actor measurement (units/volume)Ordered By: Bertha Cuevas on 02-26-2024 Rheumatoid factor Qn 12.8 [IU]/mL <14.0 [facility] Serum platelet glycoprotein IIb/IIIa antibody detection by immunoassayOrdered By: Bertha Cuevas on 02-26-2024 Platelet glycoprotein IIb/IIIa Ab IA Ql (S) Negative Negative [facility] Serum platelet glycoprotein Ia/IIa antibody detection by immunoassayOrdered By: Bertha Cuevas on 02-26-2024 Platelet glycoprotein Ia/IIa Ab IA Ql (S) Negative Negative [facility] Sodium [Moles/volume] in Ser um or PlasmaOrdered By: Bertha Cuevas on 02-26-2024 Sodium [Moles/Vol] 141 mmol/L Normal 136-145 [facility] Comment on above: Performed By: #### P TT, BMP, HS TROP, PT, CK, BNP, DIFF CBC #### [facility] [address] Thyrotropin [Units/volume] i n Serum or PlasmaOrdered By: Bertha Cuevas on 02-26-2024 TSH Qn 1.44 m[IU]/L Normal 0.45-5.33 [facility] Comment on above: Result Comment: PERF ORMED BY: [place] [address] PATHOLOGIST GENERAL OPHTHALMOLOGIST OTTO HARLEY M.D. Performed By: #### P TT, BMP, HS TROP, PT, CK, BNP, DIFF CBC #### [address] Thyroxine (T4) free [Mass/vo lume] in Serum or PlasmaOrdered By: Bertha DyeChrisPortia on 02-26-2024 Free T4 [Mass/Vol] 0.95 ng/dL Normal 0.61-1.12 [facility] Comment on above: Performed By: #### P TT, BMP, HS TROP, PT, CK, BNP, DIFF CBC #### [address] Transferrin [Mass/volume] in Serum or PlasmaOrdered By: artem Cuevas on 02-26-2024 Transferrin [Mass/Vol] 155 mg/dL Low 203-362 [facility] Comment on above: Performed By: #### P TT, BMP, HS TROP, PT, CK, BNP, DIFF CBC #### [address] Urea nitrogen [Mass/volume] in Serum or PlasmaOrdered By: artem Cuevas on 02-26-2024 Urea nitrogen [Mass/Vol] 34 mg/dL High 7-25 [facility] Comment on above: Performed By: #### P TT, BMP, HS TROP, PT, CK, BNP, DIFF CBC #### [facility] [address] [place] [address] [place] Vit. B12/Folate Profileon Folate > 49.6 Normal >5.9 [facility] Comment on above: Result Comment: Edwina te reference range: >5.9 ng/ml The WHO technical consultation on folate and vitamin b12 deficiencies has determined that folate concentrations less than 4 ng/ml are considered deficient. Performed By: #### P TT, BMP, HS TROP, PT, CK, BNP, DIFF CBC #### [facility] [address] Vitamin B12 ser/plasOrdered By: Bertha Cuevas on 02-26-2024 Cobalamin (Vitamin B12) [Mass/Vol] 1961 pg/mL High 180-914 [facility] Comment on above: Performed By: #### P TT, BMP, HS TROP, PT, CK, BNP, DIFF CBC #### [facility] [address] [place] [id number] [facility] CT WATCHMAN FULL CONTRASTon 12-28-2023 CT WATCHMAN FULL CONTRAST Interpreted By: Carlitos Augilera, STUDY: CT WATCHMAN FULL CONTRAST; 12/28/2023 10:40 am INDICATION: Signs/Symptoms:A-fib, Post-Watchman. COMPARISON: CT dated 08/28/2023 ACCESSION NUMBER(S): [id number] ORDERING CLINICIAN: RYAN COBB TECHNIQUE: Using multi [...] in 12 months may be obtained. (Aron Galarzaholashon et al., Guidelines for management of incidental pulmonary nodules detected on CT images: From the Fleischner Society 2017, Radiology. 2017 Nestor;284 (1):228-243.) FLEISCHNER.ACR.IF.1 MACRO: None Signed by: Carlitos Aguliera 12/28/2023 11:32 AM Dictation workstation: [id number] [facility] No Panel Informationon 12-27 Radiology Study observation (narrative) [facility] Work Phone: 1. Status post Watch man device placement [...] Fleischner Society 2017, Radiology. 2017 Nestor;284 (1):228-243.) FLESONJA.ACR.IF.1 MACRO: None Signed by: Carlitos Aguilera 12/28/2023 11:32 AM Dictation workstation: [id number] [facility] MMODAL Interpreted By: Carlitos Shah, STUDY: CT WATCHMAN FULL CONTRAST; 12/28/2023 10:40 am INDICATION: Signs/Symptoms:A-fib, Post-Watchman. COMPARISON: CT dated 08/28/2023 ACCESSION NUMBER(S): [id number] ORDERING CLINICIAN: RYAN COBB TECHNIQUE: Using multi [...] Post-Watchman. COMPARISON: CT dated 08/28/2023 ACCESSION NUMBER(S): [id number] ORDERING CLINICIAN: RYAN COBB TECHNIQUE: Using multi [...] Carlitos Aguilera 12/28/2023 11:32 AM Dictation workstation: [id number] [facility] Work Phone: No Panel InformationOrdered By: Carlitos Aguilera on 12-28-2023 [facility] Work Phone: Ambulatory Visit Summaryon 0 [...] spironolactone (spironolactone 25 mg Tab) thyroid desiccated (Harrah Thyroid) Procedures Performed Urethral dilatation (11/03/2022), TURP [...] with MARTY BETANCOURT, Trung Frost, JOSH When: Comments: 6 mos (increase med dosage) Where: [facility] [address], [place] [address] [phone] Medications What How Much When Instructions Changed tolterodine (tolterodine 2 mg Cap-ER) 1 Capsules By Mouth As Directed Take one cap in the morning and one at dinnertime. Pickup at [facility]/pharmacy #[id number] Unchanged APAP/ butalbital/ caffeine (APAP/ butalbital/ caffeine [...] if questions or concerns Unchanged thyroid desiccated (Harrah Thyroid) By Mouth Every day Contact prescribing physician if questions or concerns Pharmacy Information [facility]/pharmacy #[id number]: [address], [place] [phone] Allergies No Known Allergies Problems Ongoing - Any problem that you are currently receiving treatment for. BPH with urinary obstruction Enuresis Hesitancy Hypertension Incomplete bladder emptying Intertrigo mild CT (myocardial infarction) Nocturia Protein in urine Proteinuria [...] fr (more content not included)... Normal [facility] Patient Educationon 12-03-19 Patient Education [...] health care provider. General instructions ? Take ofdn-jjn-fgvepcm and prescription medicines only as told by [...] yo (more content not included)... Normal [facility] Urology Office/Clinic Noteon 12-03-2023 Urology [...] morning and night). New rx sent to [facility]. -Double void maneuvers 2. BPH with [...] [facility] [address], [place] [phone] Additional Instructions: 6 mos (increase med dosage) [...] Hesitancy Hypertension Incomplete bladder emptying Intertrigo mild CT (myocardial infarction) Nocturia Protein in urine Proteinuria Smoker Urethral meatal stenosis Urge incontinence Urinary incontinence without sensory awareness Urinary retention Historical No qualifying data Procedure/Surgical History Urethral dilatation (11/03/2022), TURP - Transurethral resection of prostate (08/31/2022), Cystoscopy (01/24/2022), Colonoscopy, Shoulder replacement. Medications APAP/butalbital/caffeine 325 mg-50 mg-40 mg Tab Harrah Thyroid, Oral, Daily atorvastatin, Oral, Daily Butapap [...] Tobac (more content not included)... Normal [facility] Comment on above: Result Comment: Elec tronically Signed By: Trung FERGUSON MD\.br\Date and Time Signed: 12/03/23 16:17 EDT\.br\Electronically Co-Signed By: Marcela Lake\.br\Date and Time Co-Signed: 12/03/23 16:16 EDT System Specialist Details- Texton 11-20-2023 System Specialist Details- Text System Specialist Details Entered On: 11/20/2023 9:57 EST Performed On: 11/20/2023 9:56 EST by Sahra Lizarraga RN System Specialist Details Transport Mode Order Detail EV : [...] : No Pacemaker Order Detail : 0 System Specialist Details Review Status : Initial Review Nurse Collects Blood Specimens : No Sahra Lizarraga RN - 11/20/2023 9:56 EST Normal [facility] Utilization Review Noteon Utilization Review Note EXT REC DAY 0. CASE CANCELLED DUE TO LOW H&H. Normal [facility] Utilization Review Noteon Utilization Review Note Reg as EXT REC, no documents. NOT IPO Still no information from preaccess yet. Still no information from preaccess yet. Approved for outpatient per preaccess. Normal [facility] HEMOon 11-16-2023 Nucleated RBC 0 /100WBC Normal [facility] Comment on above: Performed By: #### 1 48720, [id number] ####[facility] Apbzrybe15998 [place] [address] Medical Director: Eh Gould MD MAN DIFFon 11-16-[address] 0.12 x1000 Normal 0.00-0.70 [facility] Comment on above: Performed By: #### 1 72284, 166042 ####[facility] [address]okgiw[address]14 [place] [address] Medical Director: Eh Gould MD Absolute Eos Ct 0.07 x1000 Normal 0.00-0.50 [facility] Comment on above: Performed By: #### 1 , [id number] ####[facility] Bdehjpfq77920 [place] [address] Medical Director: Eh Gould MD Absolute Lymph Ct 1.10 x1000 Low 1.20-4.80 [facility] Comment on above: Performed By: #### 1 62915, 545472 ####[facility] Miyumsvf45023 [place] [address] Medical Director: Eh Gould MD Absolute Neutrophil Ct 1.22 x1000 Low 1.40-8.80 [facility] Comment on above: Performed By: #### 1 , 766487 ####[facility] Bopnpqhb43999 [place] [address] Medical Director: Eh Gould MD Absolute Seg Ct 1.10 x1000 Low 1.40-8.80 [facility] Comment on above: Performed By: #### 1 , 001926 ####[facility] Dkgbegsa76874 [place] [address] Medical Director: Eh Gould MD Band form neutrophils/100 WBC (Bld) 5 % Normal [facility] Comment on above: Performed By: #### 1 76757, 508345 ####[facility] Qfotafdl60641 [place] [address] Medical Director: Eh Gould MD Eosinophils/100 WBC (Bld) 3 % Normal [facility] Comment on above: Performed By: #### 1 62273, 115518 ####[facility] Hylflqwj01928 [place] [address] Medical Director: Eh Gould MD Lymphocytes/100 WBC (Bld) 46 % Normal [facility] Comment on above: Performed By: #### 1 43412, 051826 ####[facility] Zobqxozi42855 [place] [address] Medical Director: Eh Gould MD Macrocytosis Moderate Normal [facility] Comment on above: Performed By: #### 1 , 891407 ####[facility] Usfccngf82083 [place] [address] Medical Director: Eh Gould MD Segmented neutrophils/100 WBC (Bld) 46 % Normal [facility] Comment on above: Performed By: #### 1 , 768210 ####[facility] Jlvvnveo92156 [place] [address] Medical Director: Eh Gould MD ABORHon 11-15-2023 ABOR Interpretation Positive Normal [facility] Comment on above: Performed By: #### C D:[id number], CD:[id number] #### [facility] [address] [place] [address] Bioinformatics Associate: Eh Gould MD Patient History Check Previous Hx Normal [facility] Comment on above: Performed By: #### C [id number], [id number] #### [facility] [address] [place] [address] Bioinformatics Associate: Eh Gould MD VS 0.8% a cells 0 Normal [facility] Comment on above: Performed By: #### C D:[id number], [id number] #### [facility] [address] [place] [address] Bioinformatics Associate: Eh Gould MD VS 0.8% b cells 3+ [facility] Comment on above: Performed By: #### C D:[id number], CD:[id number] #### [facility] [address] [place] [address] Bioinformatics Associate: Eh Gould MD VS Anti-A Unit 4+ [facility] Comment on above: Performed By: #### C D:[id number], CD:[id number] #### [facility] [address] [place] [address] Bioinformatics Associate: Eh Gould MD VS Anti-B Unit 0 [facility] Comment on above: Performed By: #### C D:[id number], CD:[id number] #### [facility] [address] [place] [address] Bioinformatics Associate: Eh Gould MD VS Anti-D Unit 4+ [facility] Comment on above: Performed By: #### C D:[id number], CD:[id number] #### [facility] [address] [place] [address] Bioinformatics Associate: Eh Gould MD ABSCon 11-15-2023 ABSC Final Interp Negative [facility] Comment on above: Performed By: #### C D:[id number], [id number] #### [facility] [address] [place] [address] Bioinformatics Associate: Eh Gould MD Pt Hx check done? Yes [facility] Comment on above: Performed By: #### C D:[id number], CD:[id number] #### [facility] [address] [place] [address] Bioinformatics Associate: Eh Gould MD VS SCI Gel 0 Normal [facility] Comment on above: Performed By: #### C D:[id number], CD:[id number] #### [facility] [address] [place] [address] Bioinformatics Associate: Eh Gould MD VS SCII Gel 0 Normal [facility] Comment on above: Performed By: #### C D:[id number], CD:[id number] #### [facility] [address] [place] [address] Bioinformatics Associate: Eh Gould MD DVT/VTE Risk Factor-Texton 0 [...] - 11/15/2023 13:48 EST Normal [facility] HEMOon 11-15-2023 DIFF? Yes Normal [facility] Comment on above: Performed By: #### 1 16237, 251560 ####[facility] Eisdumch10436 [place] [address] Medical Director: Eh Gould MD Dx Actions See Notes Abnormal [facility] Comment on above: Result Comment: Scan for RBC Morphology Scan Slide. Perform manual diff if needed. SNV Performed By: #### 1 68241, 133397 ####[facility] Ikzlwmnk[address]20 [place] [address] Medical Director: Eh Gould MD Erythrocyte distribution width (RBC) [Ratio] 14.5 % Normal 11.5-14.5 [facility] Comment on above: Performed By: #### 1 , 998898 ####[facility] [address] [place] [id number]) [phone] Director: Eh Gould MD Hematocrit (Bld) [Volume fraction] 25.3 % Low 41.0-52.0 [facility] Comment on above: Performed By: #### 1 , 673764 ####[facility] R[address] [place] [id number]) [phone] Director: Eh Gould MD Hemoglobin (Bld) [Mass/Vol] 8.7 g/dL Low 13.5-17.5 [facility] Comment on above: Performed By: #### 1 , 195178 ####[facility] [address] [place], [place] [id number]) [phone] Director: Eh Gould MD Instr WBC 2.4 Normal [facility] Comment on above: Performed By: #### 1 , 091561 ####[facility] [address] [place] [id number]) [phone] Director: Eh Gould MD MCH (RBC) [Entitic mass] 38.3 pg High 27.0-34.0 [facility] Comment on above: Performed By: #### 1 , [id number] ####[facility] [address] [place], [place] [id number]) [phone] Director: Eh Gould MD MCHC (RBC) [Mass/Vol] 34.6 g/dL Normal 32.0-37.0 [facility] Comment on above: Performed By: #### 1 , 821592 ####[facility] Reyvepyc81430 [place], [place] [id number]) [phone] Director: Eh Gould MD MCV (RBC) [Entitic vol] 110.6 fL High 80.0-100.0 [facility] Comment on above: Performed By: #### 1 63364, 529003 ####[facility] Qiknajzi44692 [place], [place] [address]) [phone] Director: Eh Gould MD Platelet 142 x10 Low 150-450 [facility] Comment on above: Performed By: #### 1 74450, 131593 ####[facility] [address]vh[address] [place] [id number]) [phone] Director: Eh Gould MD Platelet mean volume (Bld) [Entitic vol] 6.4 fL Low 7.4-10.4 [facility] Comment on above: Performed By: #### 1 23666, 500168 ####[facility] Ppmhnnfe78856 [place] [id number]) [phone] Director: Eh Gould MD RBC 2.29 x10 Low 4.70-6.10 [facility] Comment on above: Result Comment: Note : RBC morphology is normal unless otherwise stated. Evaluation performed only if differential is requested. Performed By: #### 1 35846, 390274 ####[facility] Ixrouugt50304 [place] [id number]) [phone] Director: Eh Gould MD WBC 2.4 x10 Low 4.5-11.0 [facility] Comment on above: Performed By: #### 1 54706, 690410 ####[facility] Obzirzif46626 [place], [place] [address]) [phone] Director: Eh Gould MD Preadmission Testing Progres [...] visit, must be reported to your surgeon. [facility] Preadmission Testing Progress Note Faxed CBC results to Dr. Shaffer' s office. Called office and left a voice message regarding CBC results being faxed and a call back phone number. Dr. Shaffer's office phoned back, read CBC results from 11/15/23 and 10/12/23. She stated she will talk to Dr. Shaffer. No Orders received during the phone conversation. Normal [facility] UAon 11-15-2023 Appearance, U Clear Normal [facility] Comment on above: Performed By: #### 1 61340 #### [facility] [address] [place] [address] Bioinformatics Associate: Eh Gould MD Bilirubin, U Negative Normal Negative [facility] Comment on above: Performed By: #### 1 77462 #### [facility] [address] [place] [address] 44667 Bioinformatics Associate: Eh Gould MD Blood, U Small Abnormal Negative [facility] Comment on above: Performed By: #### 1 64969 #### [facility] [address] [place] [address] 40[address] Bioinformatics Associate: Eh Gould MD Color, U Yellow Normal [facility] Comment on above: Performed By: #### 1 25976 #### [facility] [address] [place] [address] 665[address] Bioinformatics Associate: Eh Gould MD Glucose Qual, U Negative Normal Negative [facility] Comment on above: Performed By: #### 1 38518 #### [facility] [address] [place] [address] 5[address] Bioinformatics Associate: Eh Gould MD Ketones, U Negative Normal Negative [facility] Comment on above: Performed By: #### 1 57607 #### [facility] [address] [place], [place] [address] Bioinformatics Associate: Eh Gould MD Leukocyte Esterase, U Negative Normal Negative [facility] Comment on above: Performed By: #### 1 15637 #### [facility] [address] [place] [address] Bioinformatics Associate: Eh Gould MD Mucous, U Occasional Normal [facility] Comment on above: Performed By: #### 1 42245 #### [facility] [address] [place], [place] [address] Bioinformatics Associate: Eh Gould MD Nitrite, U Negative Normal Negative [facility] Comment on above: Performed By: #### 1 96669 #### [facility] [address] [place], [place] [address] Bioinformatics Associate: Eh Gould MD pH, U 5.0 Normal 4.5-8.0 [facility] Comment on above: Performed By: #### 1 17100 #### [facility] [address] [place], [place] [address] Bioinformatics Associate: Eh Gould MD Protein, U Negative Normal Negative [facility] Comment on above: Performed By: #### 1 02016 #### [facility] [address] [place] [address] 35983 Bioinformatics Associate: Eh Guold MD RBC/HPF, U <1 Normal 0-3 [facility] Comment on above: Performed By: #### 1 95100 #### [facility] [address] [place], [place] [address] Bioinformatics Associate: Eh Gould MD Specific Palmer, U 1.014 Normal 1.001-1. 03 5 [facility] Comment on above: Performed By: #### 1 53264 #### [facility] [address] [place] [address] Bioinformatics Associate: Eh Gould MD Squamous Epithelial Cells, U <1 Normal [facility] Comment on above: Performed By: #### 1 52417 #### [facility] [address] [place] [address] Bioinformatics Associate: Eh Gould MD U MICRO Indicated Normal [facility] Comment on above: Performed By: #### 1 88085 #### [facility] [address] [place] [address] Bioinformatics Associate: Eh Gould MD Urobilinogen Qual, U <2.0 mg/dl Normal <2.0 mg/dl [facility] Comment on above: Result Comment: EU/d l and mg/dl are equivalent units. Performed By: #### 1 35819 #### [facility] [address] [place] [address]43 Bioinformatics Associate: Eh Gould MD WBC/HPF, U 2 #/HPF Normal 0-5 [facility] Comment on above: Performed By: #### 1 20386 #### [facility] [address] [place] [address] 73832 Bioinformatics Associate: Eh Gould MD Preadmission Testing Progres s Noteon 11-14-2023 Preadmission Testing Progress Note Registration called P.A.T.,stating the pt. may not show and reschedule. Pt did not show for appointment. Called Dr. Shaffer's office. Spoke to Alexandra, she stated the CT foe watchman check is scheduled for the 20 of November and is needed for the clearance to be completed. Normal [facility] ABORHon 10-15-2023 ABORH CK Interp Positive Normal [facility] Comment on above: Performed By: #### C [id number], CD:[id number] #### [facility] [address] [place] [address] 26085 Bioinformatics Associate: Eh Gould MD Anti-A recheck 4+ [facility] Comment on above: Performed By: #### C D:[id number], CD:[id number] #### [facility] [address] [place] [address] 60936 Bioinformatics Associate: Eh Gould MD Anti-B recheck 0 [facility] Comment on above: Performed By: #### C D:[id number], CD:[id number] #### [facility] [address] [place] [address] 29065 Bioinformatics Associate: Eh Gould MD Anti-D recheck 3+ [facility] Comment on above: Performed By: #### C D:[id number], CD:[id number] #### [facility] [address] [place] [address] Bioinformatics Associate: Eh Gould MD Pathologist Reviewon 024 Diff [...] be ruled out. Clinical correlation is recommended. [facility] Comment on above: Order Comment: Added on by Discern Expert Rule. Result Comment: CAMILA ZEPEDA (Electronic Signature) Date Verified 10/15/23 Performed By: #### 9 444580, 515049, 3035792, 222933, 815422, 480947 ####[facility] [address]xtsm14[address] [place] [address] Medical Director: Eh Gould MD Preadmission Testing Addison s Noteon 10-15-2023 Preadmission Testing Progress Note [...] voice mail all available numbers for office, swatch folder and PA. Left messages on voice mail [...] and notify surgery scheduling. Normal [facility] Utilization Review Noteon Utilization Review Note Reg [...] CANCELED PER PREACCESS. CANCELLED. Normal [facility] ABORHon 10-12-2023 ABORH Interpretation Positive Normal [facility] Comment on above: Performed By: #### C D:[id number], CD:[id number] #### [facility] [address] [place] [address] Bioinformatics Associate: Eh Gould MD Patient History Check No Previous Hx Normal [facility] Comment on above: Result Comment: 09/24 10:30 117029 ABO Recheck to be ordered on admit. Surgery Date: 10/16/23 Performed By: #### C D:[id number], CD:[id number] #### [facility] [address] [place] [address] Bioinformatics Associate: Eh Gould MD VS 0.8% a cells 0 Normal [facility] Comment on above: Performed By: #### C D:[id number], CD:[id number] #### [facility] [address] [place] [address] 12170 Bioinformatics Associate: Eh Gould MD VS 0.8% b cells 3+ Normal [facility] Comment on above: Performed By: #### C D:[id number], CD:[id number] #### [facility] [address] [place] [address] Bioinformatics Associate: Eh Gould MD VS Anti-A Unit 4+ [facility] Comment on above: Performed By: #### C D:[id number], CD:[id number] #### [facility] [address] [place] [address] Bioinformatics Associate: Eh Gould MD VS Anti-B Unit 0 [facility] Comment on above: Performed By: #### C D:[id number], CD:[id number] #### [facility] [address] [place] [address] 98[address] Bioinformatics Associate: Eh Gould MD VS Anti-D Unit 4+ [facility] Comment on above: Performed By: #### C D:[id number], CD:[id number] #### [facility] [address] [place] [address] 94531 Bioinformatics Associate: Eh Gould MD ABSCon 10-12-2023 ABSC Final Interp Negative [facility] Comment on above: Performed By: #### C D:[id number], CD:[id number] ####[facility] [address] [place] [address] Medical Director: Eh Gould MD Pt Hx check done? Yes [facility] Comment on above: Performed By: #### C D:[id number], CD:[id number] ####[facility] [address]jcqk[address] [place] [address] Medical Director: Eh Gould MD VS SCI Gel 0 Normal [facility] Comment on above: Performed By: #### C D:[id number], CD:[id number] ####[facility] [address]tc[address] [place], [place] [id number]) [phone] Director: Eh Gould MD VS SCII Gel 0 Normal [facility] Comment on above: Performed By: #### C D:[id number], CD:[id number] ####[facility] Fhbqmjrd50310 [place] [address] [facility]: [facility] MD APTTon 10-12-2023 aPTT Coag (Bld) [Time] 29.5 s Normal 27.0-38.0 So [facility] Comment on above: Result Comment: APTT Interpretation: This test has not been validated to monitor heparin therapy. APTT test is used as an initial test for suspected bleeding disorder. Anti-Xa UFH test is used to monitor heparin therapy. Performed By: #### 9 242158, 386941, 1409145, 268645, 312622, 264401 ####[facility] [address]nezimua85[address] [place] [address] Medical Director: Eh Gould MD AUTO DIFFon 10-12-2023 Baso Count 0.02 x1000 Normal 0.00-0.20 [facility] Comment on above: Performed By: #### 9 773938, 679168, 9640342, 111878, 616470, 649719 ####[facility] Tbajbyed69347 [place] [address] Medical Director: Eh Gould MD Basos % 0.8 % Normal [facility] Comment on above: Performed By: #### 9 054330, 736529, 1500121, 648302, 661040, 452979 ####[facility] [address]kcipmzo78[address] [place] [address] Medical Director: Eh Gould MD Eos Count 0.21 x1000 Normal 0.00-0.50 [facility] Comment on above: Performed By: #### 9 592348, 347448, 8163956, 374241, 601997, 253011 ####[facility] [address]ev[address]45[address] [place] [address] Medical Director: Eh Gould MD Eosinophils/100 WBC (Bld) 7.5 % Normal [facility] Comment on above: Performed By: #### 9 662018, 926737, 6334141, 704437, 481545, 781389 ####[facility] [address]jmky[address] [place] [address] Medical Director: Eh Gould MD Lymph Count 1.03 x1000 Low 1.20-4.80 [facility] Comment on above: Performed By: #### 9 960760, 384739, 1006467, 164002, 605326, 952420 ####[facility] [address]uvwq[address] [place] [address] Medical Director: Eh Gould MD Lymphocytes/100 WBC (Bld) 36.5 % Normal [facility] Comment on above: Performed By: #### 9 869645, 884488, 7653839, 552782, 571181, 584808 ####[facility] Iddemypl26077 [place] [address] Medical Director: Eh Gould MD Daniels Count 0.08 x1000 Low 0.10-1.00 [facility] Comment on above: Performed By: #### 9 039704, 038018, 3578130, 129022, 057187, 078206 ####[facility] Oxfymvlp68486 [place] [address] Medical Director: Eh Gould MD Monocytes/100 WBC (Bld) 2.8 % Normal [facility] Comment on above: Performed By: #### 9 301179, 675220, 0272872, 013961, 460655, 250496 ####[facility] [address]awic50745 [place] [address] Medical Director: Eh Gould MD Neutrophil Count (ANC) 1.48 x1000 Normal 1.40-8.80 So [facility] Comment on above: Performed By: #### 9 446478, 104817, 7439450, 467019, 228265, 527080 ####[facility] Hzetqkgj81874 [place] [address] Medical Director: Eh Gould MD Neutrophils/100 WBC (Bld) 52.5 % Normal [facility] Comment on above: Performed By: #### 9 582970, 019342, 7828188, 186772, 228011, 793756 ####[facility] Fakimepy74519 [place] [address] Medical Director: Eh Gould MD Red Blood Cell Morphology See Notes Abnormal [facility] Comment on above: Result Comment: Macr ocytosis 2+ Rouleaux 1+ Performed By: #### 9 945968, 002251, 8819969, 907113, 669042, 082109 ####[facility] [address]pkyew[address] [place] [address] Medical Director: Eh Gould MD Scan Differential Diff Scd Normal [facility] Comment on above: Result Comment: Slid e reviewed by technologist. Performed By: #### 9 263844, 529257, 0731979, 389091, 434755, 051238 ####[facility] Yxwtusfx01649 [place] [address] Medical Director: Eh Gould MD BASICMETAon 10-12-2023 Calcium [Mass/Vol] 10.1 mg/dL Normal 8.7-10.4 [facility] Comment on above: Performed By: #### 9 242950, 583026, 6175017, 720932, 763720, 434278 ####[facility] [address]knik[address] [place], [place] [address]) [phone] Director: Eh Gould MD Chloride [Moles/Vol] 103 mmol/L Normal 98-107 [facility] Comment on above: Performed By: #### 9 340048, 193826, 2544482, 426959, 288313, 852445 ####[facility] Sojqdhbi26069 [place], [place] [address]) [phone] Director: Eh Gould MD CO2 [Moles/Vol] 27.0 mmol/L Normal 20.0-31.0 [facility] Comment on above: Performed By: #### 9 173823, 819933, 1513624, 072972, 490666, 312907 ####[facility] Jnfpyydr27046 [place] [address] Medical Director: Eh Gould MD Creatinine [Mass/Vol] 1.2 mg/dL High 0.6-1.1 [facility] Comment on above: Performed By: #### 9 378265, 906872, 8838341, 882406, 755702, 040398 ####[facility] Dchmzdfg05262 [place], [place] [address]) [phone] Director: Eh Gould MD GFR AA >60 Normal [facility] Comment on above: Result Comment: Afri can Vietnamese GFR Calc Medical judgement is necessary to [...] for drug dosing. Performed By: #### 9 004848, 973277, 4676648, 219580, 507634, 164520 ####[facility] Edtjsebm97953 [place] [address] Medical Director: Eh Gould MD Glomerular Filtration Rate 59 mL/min/1.73m? Normal [facility] Comment on above: Result Comment: Non- GFR [...] for drug dosing. Performed By: #### 9 766342, 157026, 3494446, 372530, 111964, 345274 ####[facility] Iyqpxbbl18379 [place], [place] [address]) [phone] Director: Eh Gould MD Glucose [Mass/Vol] 111 mg/dL High 74-106 [facility] Comment on above: Performed By: #### 9 528900, 228865, 4917409, 520224, 628574, 482630 ####[facility] Wjhcdmwx83197 [place] [address] Medical Director: Eh Gould MD Osmolality [Osmolality] 281 mosm/kg Normal 275-295 [facility] Comment on above: Performed By: #### 9 067319, 748448, 6067292, 924173, 148392, 452674 ####[facility] Yervswlj16233 [place], [place] [address]) [phone] Director: Eh Gould MD Potassium [Moles/Vol] 4.0 mmol/L Normal 3.5-5.1 [facility] Comment on above: Performed By: #### 9 464680, 625586, 4156057, 343134, 283100, 582602 ####[facility] [address]vxkcu93[address] [place] [address] Medical Director: Eh Gould MD Sodium [Moles/Vol] 140 mmol/L Normal 135-145 [facility] Comment on above: Performed By: #### 9 810447, 517803, 8233832, 757697, 594623, 573596 ####[facility] Snsctdet06402 [place] [address] Medical Director: Eh Gould MD Urea nitrogen [Mass/Vol] 16 mg/dL Normal 9-23 [facility] Comment on above: Result Comment: - Ve nipuncture should occur prior to N-Acetyl Cysteine (NAC) or Metamizole (Sulpyrine) administration due to the potential for falsely depressed results. - Blood samples from some patients with monoclonal gammopathies may produce falsely elevated results Performed By: #### 9 303237, 649748, 8323655, 053532, 104901, 519568 ####[facility] Tdtovkrj71025 [place] [address] Medical Director: Eh Gould MD Urea nitrogen/Creatinine [Mass ratio] 13.3 mg/mg Normal [facility] Comment on above: Performed By: #### 9 358322, 048835, 7896848, 646987, 744192, 270314 ####[facility] Ts[address]jrdp22333 [place] [address] Medical Director: Eh Gould MD HEMOon 10-12-2023 DIFF? No Normal [facility] Comment on above: Performed By: #### 9 600233, 863209, 7733006, 363680, 035631, 702268 ####[facility] Qdfzrkqy71114 [place] [address] Medical Director: Eh Gould MD DxH Actions See Notes Abnormal [facility] Comment on above: Result Comment: Scan for RBC Morphology Scan Slide. Perform manual diff if needed. SNV Performed By: #### 9 562249, 372839, 9476890, 439697, 880768, 308077 ####[facility] Vpynkoru13873 [place] [address] Medical Director: Eh Gould MD Erythrocyte distribution width (RBC) [Ratio] 13.5 % Normal 11.5-14.5 [facility] Comment on above: Performed By: #### 9 025747, 928940, 6079480, 424119, 815183, 809216 ####[facility] Qsvztpuo24510 [place] [address] Medical Director: Eh Gould MD HEM PATH REVIEW See Diff Review Interp Normal [facility] Comment on above: Performed By: #### 9 809004, 989475, 8023820, 085785, 677969, 626471 ####[facility] Qvlnwsfr11421 [place], [place] [address]) [phone] Director: Eh Gould MD Hematocrit (Bld) [Volume fraction] 27.4 % Low 41.0-52.0 [facility] Comment on above: Performed By: #### 9 483971, 221111, 5895598, 712696, 804877, 123795 ####[facility] Clkakued07360 [place] [address] Medical Director: Eh Gould MD Hemoglobin (Bld) [Mass/Vol] 9.4 g/dL Low 13.5-17.5 [facility] Comment on above: Performed By: #### 9 847765, 258705, 2365458, 827064, 007390, 243624 ####[facility] [address]atvyou80[address] [place] [address] Medical Director: Eh Gould MD Instr WBC 2.8 Normal [facility] Comment on above: Performed By: #### 9 113574, 172319, 9970358, 948958, 916577, 140150 ####[facility] [address]teglixu21960 [place] [address] Medical Director: Eh Gould MD MCH (RBC) [Entitic mass] 37.4 pg High 27.0-34.0 [facility] Comment on above: Performed By: #### 9 815176, 274848, 6560554, 855399, 566345, 891453 ####[facility] Pjileeng49743 [place] [address]) [phone] Director: Eh Gould MD MCHC (RBC) [Mass/Vol] 34.2 g/dL Normal 32.0-37.0 [facility] Comment on above: Performed By: #### 9 245683, 540357, 4315965, 502387, 910026, 959115 ####[facility] [facility] [id number] [place] [address] Medical Director: Eh Gould MD MCV (RBC) [Entitic vol] 109.4 fL High 80.0-100.0 [facility] Comment on above: Performed By: #### 9 816708, 172509, 2849391, 190426, 337584, 537151 ####[facility] Zcwbrjem[address] [place] [address] Medical Director: Eh Gould MD Nucleated RBC 0 /100WBC Normal [facility] Comment on above: Performed By: #### 9 745369, 294475, 0007251, 770311, 854619, 071754 ####[facility] Qgoxsbpm46506 [place] [address] Medical Director: Eh Gould MD Platelet 165 x10 Normal 150-450 [facility] Comment on above: Performed By: #### 9 485906, 986625, 1910230, 939116, 863225, 663534 ####[facility] Wabcwzls09286 [place], [place] [id number]) [phone] Director: Eh Gould MD Platelet mean volume (Bld) [Entitic vol] 6.3 fL Low 7.4-10.4 [facility] Comment on above: Performed By: #### 9 977422, 816698, 4771444, 179157, 627554, 076687 ####[facility] Tyognzlp37720 [place], [place] [address]) [phone] Director: Eh Gould MD RBC 2.51 x10 Low 4.70-6.10 [facility] Comment on above: Result Comment: Note : RBC morphology is normal unless otherwise stated. Evaluation performed only if differential is requested. Performed By: #### 9 013927, 406264, 9681606, 464663, 212945, 429749 ####[facility] Votoqpmn92162 [place], [place] [id number]) [phone] Director: Eh Gould MD WBC 2.8 x10 Low 4.5-11.0 [facility] Comment on above: Performed By: #### 9 388781, 234458, 6147041, 505538, 879397, 903429 ####[facility] [address] [place] [id number]) [phone] Director: Eh Gould MD PT INRon 10-12-2023 INR Coag (PPP) [Relative time] 1.2 {INR} Normal [facility] Comment on above: Result Comment: INR Reference Range: Normal reference range for INR on patients not on anticoagulant therapy: 0.9-1.1 General therapeutic range for patients on anticoagulant therapy: 2.0-3.5 Performed By: #### 9 427432, 263270, 1693179, 196824, 733266, 480538 ####[facility] X[address]mnvewq39807 [place], [place] [address]) [phone] Director: Eh Gould MD Protime Patient 13.4 seconds High 9.8-12.8 [facility] Comment on above: Performed By: #### 9 456040, 211712, 3153951, 779791, 027371, 491851 ####[facility] Yvenvluc34802 [place] [address] Medical Director: Eh Gould MD Preadmission Testing Progrrubina s Noteon 10-12-2023 Preadmission Testing Progress Note [...] [place], Dante Lanier on Normal [facility] UAon 10-12-2023 Appearance, U Clear Normal [facility] Comment on above: Performed By: #### 1 49698 #### [facility] [address] [place] [address] Bioinformatics Associate: Eh Gould MD Bilirubin, U Negative Normal Negative [facility] Comment on above: Performed By: #### 1 34032 #### [facility] [address] [place] [address] Bioinformatics Associate: Eh Gould MD Blood, U Moderate Abnormal Negative [facility] Comment on above: Performed By: #### 1 00447 #### [facility] [address] [place] [address] Bioinformatics Associate: Eh Gould MD Color, U Yellow Normal [facility] Comment on above: Performed By: #### 1 53511 #### [facility] [address] [place] [address] Bioinformatics Associate: Eh Gould MD Glucose Qual, U Negative Normal Negative [facility] Comment on above: Performed By: #### 1 94785 #### [facility] [address] [place] [address] Bioinformatics Associate: Eh Gould MD Hyaline Cast <1 Normal [facility] Comment on above: Performed By: #### 1 07984 #### [facility] [address] [place] [address] Bioinformatics Associate: Eh Gould MD Ketones, U Negative Normal Negative [facility] Comment on above: Performed By: #### 1 96717 #### [facility] [address] [place] [address] Bioinformatics Associate: Eh Gould MD Leukocyte Esterase, U Negative Normal Negative [facility] Comment on above: Performed By: #### 1 52372 #### [facility] [address] [place] [address] Bioinformatics Associate: Eh Gould MD Mucous, U Occasional Normal [facility] Comment on above: Performed By: #### 1 25877 #### [facility] [address] [place] [address] Bioinformatics Associate: Eh Gould MD Nitrite, U Negative Normal Negative [facility] Comment on above: Performed By: #### 1 93079 #### [facility] [address] [place] [address] Bioinformatics Associate: Eh Gould MD pH, U 5.0 Normal 4.5-8.0 [facility] Comment on above: Performed By: #### 1 00150 #### [facility] [address] [place] [address] Bioinformatics Associate: Eh Gould MD Protein, U Negative Normal Negative [facility] Comment on above: Performed By: #### 1 61861 #### [facility] [address] [place] [address] Bioinformatics Associate: Eh Gould MD RBC/HPF, U 5 #/HPF High 0-3 [facility] Comment on above: Performed By: #### 1 17778 #### [facility] [address] [place] [address] Bioinformatics Associate: Eh Gould MD Specific Palmer, U 1.016 Normal 1.001-1. 03 5 [facility] Comment on above: Performed By: #### 1 17513 #### [facility] [address] [place] [address] Bioinformatics Associate: Eh Gould MD U MICRO Indicated Normal [facility] Comment on above: Performed By: #### 1 45867 #### [facility] [address] [place] [address] Bioinformatics Associate: Eh Gould MD Urobilinogen Qual, U <2.0 mg/dl Normal <2.0 mg/dl [facility] Comment on above: Result Comment: EU/d l and mg/dl are equivalent units. Performed By: #### 1 71037 #### [facility] [address] [place] [address] Bioinformatics Associate: Eh Gould MD WBC/HPF, U 7 #/HPF [facility] 0-5 [facility] Comment on above: Performed By: #### 1 08545 #### [facility] [address] [place] [address] Bioinformatics Associate: Eh Gould MD Activated clotting timeon ACT Coag (Bld) 271 s High 89-169 [facility] Comment on above: Result Comment: Targ et ACT range will vary based on the patient population, clinical status, and surgical intervention occurring. Performed By: #### 3 184-9 #### JAVAD Stephenson ([id number]) [facility] ([facility]) [address] [place] [id number] WATCHMAN FULL CONTRASTon 08-28-2023 CT WATCHMAN FULL CONTRAST Interpreted By: Purnima Lira, STUDY: CT WATCHMAN FULL CONTRAST; 08/28/2023 12:00 pm INDICATION: Signs/Symptoms:pre Watchman procedure SAME DAY CT. COMPARISON: None. ACCESSION NUMBER(S): [id number] ORDERING CLINICIAN: RYAN COBB TECHNIQUE: Using multi [...] Purnima Lira 09/06/2023 9:28 AM Dictation workstation: [id number] [facility] ECG 12-LEADon 08-28-2023 ECG 12-LEAD Ventricular Rate 63 Atrial Rate 63 P-R Interval 196 QRS Duration 86 Q-T Interval 402 QTC Calculation(Bazett) 411 P [place] 67 R [place] -1 T [place] 20 QRS Count 10 Q Onset 223 P Onset 125 P Offset 180 T Offset 424 QTC Fredericia 408 Diagnosis Normal sinus rhythm Inferior infarct Possible Anterior infarct Abnormal ECG Confirmed by Benny Obrien ([id number]) on 08/30/2023 3:59:32 PM Normal [facility] STRUCTURAL HEART PROCEDUREon 08-28-2023 STRUCTURAL HEART PROCEDURE [facility], [employer], [address] [place] [address] Cardiovascular Catheterization Report Patient Name: NEIL WILCOX Performing Physician: [id number] Cobb MD Study Date: 08/28/2023 Verifying Physician: [id number] Cobb MD MRN/PID: [id number] Melter Clerk/Co-scrub: Ordering Physician: [id number] COBB Date of 1945 Fellow: [id number] Adam Benedict /Age: years Gender: M Fellow: [...] guidance, transseptal puncture was with a versacross (Dagne Dover), accessing the left atrium. The transseptal tract was then dilated with a Watchman Double Curve access sheath and the ICE probe was advanced through the dilated tract into the left atrium. Next, a 6 Estonian angled pigtail was advanced through the delivery [...] CPT Codes: Perc left atrial appendage closure (LAAC)-44101 [id number] Ryan Cobb MD Performing Physician Final [facility] TRANSTHORACIC ECHO (TTE) SALAS ITEDon 08-28-2023 TRANSTHORACIC ECHO (TTE) [facility], [address] [place] [address] and TRANSTHORACIC ECHOCARDIOGRAM REPORT Patient Name: NEIL WILCOX Reading Physician: [id number] Kandis Chau MD Study Date: 08/28/2023 Ordering Provider: [id number] LUCAS R PEARCE MRN/PID: [id number] Fellow: Nurse: Date of /Age: 1 1945 / 77 years Outsole Beveler: Moncho Infante RDCS Gender: M Additional Staff: Height: 175.26 cm Admit Date: 08/28/2023 Weight: 79.38 kg Admission Status: Inpatient - Routine BSA: 1.95 m2 Department Location: [facility] Non Invasive Study Type: TRANSTHORACIC ECHO (TTE) LIMITED Diagnosis/ICD: Unspecified atrial fibrillation-I48.91 Indication: Pre-LAAO CPT Code: Echo Limited-01462 Patient History: Pertinent History: HTN; HLD: paroxysmal [...] VALVE/RVSP: Normal Ranges: IVC Diam: 1.50 cm [id number] Kandis Chau MD Electronically signed on 08/28/2023 at 3:17:19 PM Final Normal [facility] TRANSTHORACIC ECHO (TTE) LIMITED [facility], [address] [place] [address] and TRANSTHORACIC ECHOCARDIOGRAM REPORT Patient Name: MINDYCassie WILCOX Reading Physician: [id number] Jacobo French MD Study Date: 08/28/2023 Ordering Provider: [id number] LUCAS PEARCE MRN/PID: [id number] Fellow: Nurse: Date of 1945 Outsole Beveler: Moncho Infante RDCS /Age: years Gender: M Additional Staff: Height: 175.26 cm Admit Date: 08/28/2023 Weight: 79.38 kg Admission Status: Inpatient - Routine BSA: 1.95 m2 [facility] Cath Location: Lab Blood Pressure: 137 /78 mmHg Study Type: TRANSTHORACIC ECHO (TTE) LIMITED Diagnosis/ICD: Unspecified atrial fibrillation-I48.91 Indication: POST LAAO CPT Code: Echo Limited-58291 Patient History: Pertinent History: HTN; HLD; paroxysmal [...] 72.4 g/m2 LV % FS 32.6 % [id number] Jacobo French MD Electronically signed on 08/28/2023 at 5:50:[address] [facility] US Heart Transthoracicon [facility], [address] [place] [address] and TRANSTHORACIC ECHOCARDIOGRAM REPORT Patient Name: NEIL WILCOX Reading Physician: [id number] Kandis Chau MD Study Date: 08/28/2023 Ordering Provider: [id number] LUCAS PEARCE MRN/PID: [id number] Fellow: Nurse: Date of /Age: 1 1945 / 77 years Outsole Beveler: Moncho Infante RDCS Gender: M Additional Staff: Height: 175.26 cm Admit Date: 08/28/2023 Weight: 79.38 kg Admission Status: Inpatient - Routine BSA: 1.95 m2 Department Location: [facility] Non Invasive Study Type: TRANSTHORACIC ECHO (TTE) LIMITED Diagnosis/ICD: Unspecified atrial fibrillation-I48.91 Indication: Pre-LAAO CPT Code: Echo Limited-23814 Patient History: Pertinent History: HTN; HLD: paroxysmal [...] VALVE/RVSP: Normal Ranges: IVC Diam: 1.50 cm [id number] Kandis Chau MD Electronically signed on 08/28/2023 at 3:17:19 PM Final Kandis Bhatt MD - 08/28/2023 [facility], [address] [place] [address] and TRANSTHORACIC ECHOCARDIOGRAM REPORT Patient Name: NEIL Matthews JERI Reading Physician: [id number] Kandis Chau MD Study Date: 08/28/2023 Ordering Provider: [id number] LUCAS PEARCE MRN/PID: [id number] Fellow: Nurse: Date of /Age: 1 1945 / 77 years Outsole Beveler: Moncho Infante RDCS Gender: M Additional Staff: Height: 175.26 cm Admit Date: 08/28/2023 Weight: 79.38 kg Admission Status: Inpatient - Routine BSA: 1.95 m2 Department Location: [facility] Non Invasive Study Type: TRANSTHORACIC ECHO (TTE) LIMITED Diagnosis/ICD: Unspecified atrial fibrillation-I48.91 Indication: Pre-LAAO CPT Code: Echo Limited-52709 Patient History: Pertinent History: HTN; HLD: paroxysmal [...] VALVE/RVSP: Normal Ranges: IVC Diam: 1.50 cm [id number] Kandis Chau MD Electronically signed on 08/28/2023 at 3:17:19 PM Final [facility] Work Phone: US Heart TransthoracicOrdere d By: Kandis Chau on 08-28-2023 [facility] Work Phone: Creatinineon 08-22-2023 Creatinine [Mass/Vol] 1.23 mg/dL Normal 0.50-1.30 [facility] Comment on above: Performed By: #### 2 160-0 #### LINDA GALLAGHER ([id number]) [facility] ([facility]) [address] [place] [address] Creatinine [Mass/Vol]on 07-26 GFR/1.73 sq M.predicted MDRD (S/P/Bld) [Vol rate/Area] 61 mL/min/1.73m*2 Normal >60 [facility] Comment on above: Result Comment: Calc ulations of estimated GFR are performed using the 2020 CKD-EPI Study Refit equation without the race variable for the IDMS-Traceable creatinine methods. https://jasn.asnjournals.org/content//ASN.61980 95246 Performed By: #### 2 160-0 #### LINDA GALLAGHER ([id number]) [facility] ([facility]) [address] [place] [address]33 CBC W Auto Differential pane l (Bld)on 07-31-2023 Basophils (Bld) [#/Vol] 10*3/uL Normal <0.11 [facility] Comment on above: Order Comment: Speci men Type: BLOOD SPECIMEN Ordering Facility: External Submitter Address: , , Performed By: #### 5 7021-8 #### [facility] CLIA [id number] [address] [place] [address] [place] Basophils/100 WBC (Bld) 0.3 % Normal [facility] Comment on above: Order Comment: Speci men Type: BLOOD SPECIMEN Ordering Facility: External Submitter Address: , , Performed By: #### 5 7021-8 #### [facility] CLIA [id number] [address] [place] [address] [place] CBC W Differential panel, method unspecified (Bld) Done Normal [facility] Comment on above: Order Comment: Speci men Type: BLOOD SPECIMEN Ordering Facility: External Submitter Address: , , Performed By: #### 5 7021-8 #### [facility] CLIA [id number] [address] [place] [address] [place] Differential cell count method Nom (Bld) Auto Normal [facility] Comment on above: Order Comment: Speci men Type: BLOOD SPECIMEN Ordering Facility: External Submitter Address: , , Performed By: #### 5 7021-8 #### [facility] CLIA [id number] [address] [place] [address] [place] Eosinophils (Bld) [#/Vol] 0.22 10*3/uL Normal <0.46 [facility] Comment on above: Order Comment: Speci men Type: BLOOD SPECIMEN Ordering Facility: External Submitter Address: , , Performed By: #### 5 7021-8 #### [facility] CLIA [id number] [address] [place] [address] [place] Eosinophils/100 WBC (Bld) 6.5 % Normal [facility] Comment on above: Order Comment: Speci men Type: BLOOD SPECIMEN Ordering Facility: External Submitter Address: , , Performed By: #### 5 7021-8 #### [facility] CLIA [id number] [address] [place] [address] [place] Erythrocyte distribution width (RBC) [Ratio] 13.0 % Normal 11.5-15.0 [facility] Comment on above: Order Comment: Speci men Type: BLOOD SPECIMEN Ordering Facility: External Submitter Address: , , Performed By: #### 5 7021-8 #### [facility] CLIA [id number] [address] [place] [address] [place] Hematocrit (Bld) [Volume fraction] 31.3 % Low 39.0-51.0 [facility] Comment on above: Order Comment: Speci men Type: BLOOD SPECIMEN Ordering Facility: External Submitter Address: , , Performed By: #### 5 7021-8 #### [facility] CLIA [id number] [address] [place] [address] [place] Hemoglobin (Bld) [Mass/Vol] 10.4 g/dL Low 13.0-17.0 [facility] Comment on above: Order Comment: Speci men Type: BLOOD SPECIMEN Ordering Facility: External Submitter Address: , , Performed By: #### 5 7021-8 #### [facility] CLIA [id number] [address] [place] [address] [place] Immature granulocytes (Bld) [#/Vol] 10*3/uL Normal <0.10 [facility] Comment on above: Order Comment: Speci men Type: BLOOD SPECIMEN Ordering Facility: External Submitter Address: , , Performed By: #### 5 7021-8 #### [facility] CLIA [id number] [address] [place] [address] [place] Immature granulocytes/100 WBC (Bld) 0.0 % Normal [facility] Comment on above: Order Comment: Speci men Type: BLOOD SPECIMEN Ordering Facility: External Submitter Address: , , Performed By: #### 5 7021-8 #### [facility] CLIA [id number] [address] [place] [address] [place] Lymphocytes (Bld) [#/Vol] 1.06 10*3/uL Normal 1.00-4.00 [facility] Comment on above: Order Comment: Speci men Type: BLOOD SPECIMEN Ordering Facility: External Submitter Address: , , Performed By: #### 5 7021-8 #### [facility] CLIA [id number] [address] [place] [address] [place] Lymphocytes/100 WBC (Bld) 31.2 % Normal [facility] Comment on above: Order Comment: Speci men Type: BLOOD SPECIMEN Ordering Facility: External Submitter Address: , , Performed By: #### 5 7021-8 #### [facility] CLIA [id number] [address] [place] [address] [place] MCH (RBC) [Entitic mass] 37.3 pg High 26.0-34.0 [facility] Comment on above: Order Comment: Speci men Type: BLOOD SPECIMEN Ordering Facility: External Submitter Address: , , Performed By: #### 5 7021-8 #### [facility] CLIA [id number] [address] [place] [address] [place] MCHC (RBC) [Mass/Vol] 33.2 g/dL Normal 30.5-36.0 [facility] Comment on above: Order Comment: Speci men Type: BLOOD SPECIMEN Ordering Facility: External Submitter Address: , , Performed By: #### 5 7021-8 #### [facility] CLIA [id number] [address] [place] [address] [place] MCV (RBC) [Entitic vol] 112.2 fL High 80.0-100.0 [facility] Comment on above: Order Comment: Speci men Type: BLOOD SPECIMEN Ordering Facility: External Submitter Address: , , Performed By: #### 5 7021-8 #### [facility] CLIA [id number] [address] [place] [address] [place] Monocytes (Bld) [#/Vol] 0.13 10*3/uL Normal <0.87 [facility] Comment on above: Order Comment: Speci men Type: BLOOD SPECIMEN Ordering Facility: External Submitter Address: , , Performed By: #### 5 7021-8 #### [facility] CLIA [id number] [address] [place] [id number] [place] Monocytes/100 WBC (Bld) 3.8 % Normal [facility] Comment on above: Order Comment: Speci men Type: BLOOD SPECIMEN Ordering Facility: External Submitter Address: , , Performed By: #### 5 7021-8 #### [facility] CLIA [id number] [address] [place] [address] [place] Neutrophils (Bld) [#/Vol] 1.98 10*3/uL Normal 1.45-7.50 [facility] Comment on above: Order Comment: Speci men Type: BLOOD SPECIMEN Ordering Facility: External Submitter Address: , , Performed By: #### 5 7021-8 #### [facility] CLIA [id number] [address] [place] [id number] [place] Neutrophils/100 WBC (Bld) 58.2 % Normal [facility] Comment on above: Order Comment: Speci men Type: BLOOD SPECIMEN Ordering Facility: External Submitter Address: , , Performed By: #### 5 7021-8 #### [facility] CLIA [id number] [address] [place], [place] [address] [place] Nucleated RBC (Bld) [#/Vol] 10*3/uL Normal <0.01 [facility] Comment on above: Order Comment: Speci men Type: BLOOD SPECIMEN Ordering Facility: External Submitter Address: , , Performed By: #### 5 7021-8 #### [facility] CLIA [id number] [address] [place] [id number] [place] Nucleated RBC/100 WBC (Bld) [Ratio] 0.0 /100 WBC Normal [facility] Comment on above: Order Comment: Speci men Type: BLOOD SPECIMEN Ordering Facility: External Submitter Address: , , Performed By: #### 5 7021-8 #### [facility] CLIA [id number] [address] [place] [address] [place] Platelet mean volume (Bld) [Entitic vol] 9.1 fL Normal 9.0-12.7 [facility] Comment on above: Order Comment: Speci men Type: BLOOD SPECIMEN Ordering Facility: External Submitter Address: , , Performed By: #### 5 7021-8 #### [facility] CLIA [id number] [address] [place] [address] [place] Platelets (Bld) [#/Vol] 166 10*3/uL Normal 150-400 [facility] Comment on above: Order Comment: Speci men Type: BLOOD SPECIMEN Ordering Facility: External Submitter Address: , , Performed By: #### 5 7021-8 #### [facility] CLIA [id number] [address] [place] [address] [place] Platelets Estimate (Bld) [#/Vol] Adequate Normal [facility] Comment on above: Order Comment: Speci men Type: BLOOD SPECIMEN Ordering Facility: External Submitter Address: , , Performed By: #### 5 7021-8 #### [facility] CLIA [id number] [address] [place] [address] [place] RBC (Bld) [#/Vol] 2.79 10*6/uL Low 4.20-6.00 [facility] Comment on above: Order Comment: Speci men Type: BLOOD SPECIMEN Ordering Facility: External Submitter Address: , , Performed By: #### 5 7021-8 #### [facility] CLIA [id number] [address] [place] [address] [place] RED CELL MORPH Reviewed: unremarkable Normal [facility] Comment on above: Order Comment: Speci men Type: BLOOD SPECIMEN Ordering Facility: External Submitter Address: , , Performed By: #### 5 7021-8 #### [facility] CLIA [id number] [address] [place] [address] [place] WBC (Bld) [#/Vol] 3.40 10*3/uL Low 3.70-11.00 [facility] Comment on above: Order Comment: Speci men Type: BLOOD SPECIMEN Ordering Facility: External Submitter Address: , , Performed By: #### 5 7021-8 #### [facility] CLIA [id number] [address] [id number] [place] Comprehensive metabolic 2000 panelon 07-31-2023 Albumin [Mass/Vol] 3.8 g/dL Low 3.9-4.9 [facility] Comment on above: Order Comment: Speci men Type: BLOOD SPECIMEN Ordering Facility: External Submitter Address: , , Performed By: #### 2 4323-8, 3023-7, 3 #### [facility] CLIA [id number] [address] [place], [place] [id number] [place] ALP [Catalytic activity/Vol] 132 U/L High 38-113 [facility] Comment on above: Order Comment: Speci men Type: BLOOD SPECIMEN Ordering Facility: External Submitter Address: , , Performed By: #### 2 4323-8, 3023-7, 6-3 #### [facility] CLIA [id number] [address] [id number] [place] ALT [Catalytic activity/Vol] 9 U/L Low 10-54 [facility] Comment on above: Order Comment: Speci men Type: BLOOD SPECIMEN Ordering Facility: External Submitter Address: , , Performed By: #### 2 4323-8, 3023-7, 6-3 #### [facility] CLIA [id number] [address] [id number] [place] Anion gap [Moles/Vol] 15 mmol/L Normal 9-18 [facility] Comment on above: Order Comment: Speci men Type: BLOOD SPECIMEN Ordering Facility: External Submitter Address: , , Performed By: #### 2 4323-8, 3023-, 3 #### [facility] CLIA [id number] [address] [place] [address] [place] AST [Catalytic activity/Vol] 16 U/L Normal 14-40 [facility] Comment on above: Order Comment: Speci men Type: BLOOD SPECIMEN Ordering Facility: External Submitter Address: , , Performed By: #### 2 4323-8, 3024-03, 3015-11 #### [facility] CLIA [id number] [address] [place] [address] [place] Bilirubin [Mass/Vol] 0.4 mg/dL Normal 0.2-1.3 [facility] Comment on above: Order Comment: Speci men Type: BLOOD SPECIMEN Ordering Facility: External Submitter Address: , , Performed By: #### 2 4323-8, 3024-03, 3015-11 #### [facility] CLIA [id number] [address] [place] [address] [place] Calcium [Mass/Vol] 9.6 mg/dL Normal 8.5-10.2 [facility] Comment on above: Order Comment: Speci men Type: BLOOD SPECIMEN Ordering Facility: External Submitter Address: , , Performed By: #### 2 4323-8, 3024-03, 3015-11 #### [facility] CLIA [id number] [address] [id number] [place] Chloride [Moles/Vol] 99 mmol/L Normal 97-105 [facility] Comment on above: Order Comment: Speci men Type: BLOOD SPECIMEN Ordering Facility: External Submitter Address: , , Performed By: #### 2 4323-8, 3024-03, 3015-11 #### [facility] CLIA [id number] [address] [address] [place] CO2 [Moles/Vol] 23 mmol/L Normal 22-30 [facility] Comment on above: Order Comment: Gee vang Type: BLOOD SPECIMEN Ordering Facility: External Submitter Address: , , Performed By: #### 2 4323-8, 3024-7, 3016-3 #### [facility] CLIA [id number] [address] [id number] [place] Creatinine [Mass/Vol] 1.23 mg/dL High 0.73-1.22 [facility] Comment on above: Order Comment: Gee vang Type: BLOOD SPECIMEN Ordering Facility: External Submitter Address: , , Performed By: #### 2 4323-8, 3024-7, 6-3 #### [facility] CLIA [id number] [address] [place] [address] [place] Creatinine and Glomerular filtration rate.predicted panel (S/P/Bld) 61 mL/min/1.73m??? Normal >=60 [facility] Comment on above: Order Comment: Gee vang [...] By: #### 2 4323-8, 3024-7, 3016-3 #### [facility] CLIA [id number] [address] [id number] [place] Glucose [Mass/Vol] 139 mg/dL High 74-99 [facility] Comment on above: Order Comment: Gee vang Type: BLOOD SPECIMEN Ordering Facility: External Submitter Address: , , Result Comment: The [place] Diabetes Association (ADA) provides guidance for cutoff [...] Standards of Medical Care in Diabetes 2016, [place] Diabetes Association. Diabetes Care. 2016.39(Suppl 1). Performed By: #### 2 4323-8, 3024-03, 3 #### [facility] CLIA [id number] [address] [place] [address] [place] Potassium [Moles/Vol] 4.0 mmol/L Normal 3.7-5.1 [facility] Comment on above: Order Comment: Gee vang Type: BLOOD SPECIMEN Ordering Facility: External Submitter Address: , , Performed By: #### 2 4328, 3024-03, 3 #### [facility] CLIA [id number] [address] [place] [address] [place] Protein [Mass/Vol] 7.7 g/dL Normal 6.3-8.0 [facility] Comment on above: Order Comment: Gee vang Type: BLOOD SPECIMEN Ordering Facility: External Submitter Address: , , Performed By: #### 2 4323-8, 3024-03, 3015-11 #### [facility] CLIA [id number] [address] [id number] [place] Sodium [Moles/Vol] 137 mmol/L Normal 136-144 [facility] Comment on above: Order Comment: Gee vang Type: BLOOD SPECIMEN Ordering Facility: External Submitter Address: , , Performed By: #### 2 4323-8, 3024-03, 3 #### [facility] CLIA [id number] [address] [place] [address] [place] Urea nitrogen [Mass/Vol] 19 mg/dL Normal 9-24 [facility] Comment on above: Order Comment: Speci men Type: BLOOD SPECIMEN Ordering Facility: External Submitter Address: , , Performed By: #### 2 4323-8, 3024-7, 3016-3 #### [facility] CLIA [id number] [address] [place] [address] [place] T4 Free SerPl-mCncon 023 Free T4 [Mass/Vol] 1.1 ng/dL Normal 0.9-1.7 [facility] Comment on above: Order Comment: Speci men Type: BLOOD SPECIMEN Ordering Facility: External Submitter Address: , , Performed By: #### 2 4323-8, 3024-7, 3016-3 #### [facility] CLIA [id number] [address] [place] [address] [place] TSH SerPl-aCncon 07-31-2023 TSH Qn 4.190 m[IU]/L Normal 0.270-4.20 0 [facility] Comment on above: Order Comment: Speci men Type: BLOOD SPECIMEN Ordering Facility: External Submitter Address: , , Performed By: #### 2 4323-8, 3024-7, 3016-3 #### [facility] CLIA [id number] [address] [place] [address] [place] Ambulatory Visit Summaryon [...] 325 mg-50 mg-40 mg Tab) Misc Prescription ([facility] B-12 1,000 MCG TABLET) Non-Formulary Medication (Butapap [...] spironolactone (spironolactone 25 mg Tab) thyroid desiccated (Harrah Thyroid) Procedures Performed Urethral dilatation (11/03/2022), TURP [...] months Where: [facility] [address] , [place] [address]- Medications What How Much When Instructions Changed tolterodine (tolterodine 2 mg Cap-ER) 1 Capsules By Mouth Every day Pickup at [facility]/pharmacy #[id number] Unchanged APAP/ butalbital/ caffeine (APAP/ butalbital/ caffeine [...] if questions or concerns Unchanged thyroid desiccated (Harrah Thyroid) By Mouth Every day Contact prescribing physician if questions or concerns Pharmacy Information [facility]/pharmacy #[id number]: [address], [place] [id number] [phone] Allergies No Known Allergies Problems Ongoing - Any problem that you are currently receiving treatment for. BPH without urinary obstruction Hesitancy Hypertension Incomplete bladder emptying Intertrigo mild CT (myocardial infarction) Nocturia Protein in urine Proteinuria [...] condi (more content not included)... Normal [facility] Patient Educationon 07-09-20 23 Patient Education Urology Benign Prostatic Hyperplasia Benign [...] Follow these instructions at home: ? Take zykq-xnv-lvoqitf and prescription medicines only as told by [...] medicine (more content not included)... Normal [facility] Urology Office/Clinic Noteon 07-09-2023 Urology [...] [facility] [address], [place] [address]- Additional Instructions: Patient Education Benign Prostatic Hyperplasia I, Valentine Fuentes , personally scribed for Dr. Ferguson on 07/09/2023 11:38:56. . Documentation recorded by the scribe, Valentine Fuentes, accurately reflects the services(s) I performed and decisions made by me. Problem List/Past Medical History Ongoing BPH without urinary obstruction Hesitancy Hypertension Incomplete bladder emptying Intertrigo mild CT (myocardial infarction) Nocturia Protein in urine Proteinuria Smoker Urethral meatal stenosis Urge incontinence Urinary incontinence without sensory awareness Urinary retention Historical No qualifying data Procedure/Surgical History Urethral dilatation (11/03/2022), TURP - Transurethral resection of prostate (08/31/2022), Cystoscopy (01/24/2022), Colonoscopy, Shoulder replacement. Medications APAP/butalbital/caffeine 325 mg-50 mg-40 mg Tab Harrah Thyroid, Oral, Daily atorvastatin, Oral, Daily Butapap cat 40mg PRN [facility] B-12 1,000 MCG TABLET, 0 doxazosin 4 mg Tab Eliquis 5 mg oral tablet FLUoxet (more content not included)... Normal [facility] Comment on above: Result [...] Orders Anemia Complete Blood Count; Status:Active; Requested for:11Jun2023; Atrial fibrillation, currently in sinus rhythm, Frequent falls Cardiology - Valve and Structural Heart Program Referral Evaluation and Treatment Evaluate AND Treat Status: Hold For - Scheduling Requested for: 11Jun2023 SocHx: Former smoker Tobacco Use Screening; Status:Complete; Done: [id number] Patient Instructions Please bring all medicines, vitamins, [...] fibrillation, hypercoagulability related to atrial fibrillation, high [id number] score, most recently seen February 2023 and [...] due to atrial fibrillation, on anticoagulation. 10. [id number] at least 5. Has bled score 2 [...] cuff rep (more content not included)... Normal [facility] Tobacco Screening.on 023 Fall risk assessment b) One or more fall s in the last year [facility] [employer] 250 DO Work Phone: Tobacco use status [facility] b) No [facility] [employer] 250 DO Work Phone: Tobacco Screening. Yes [facility] [employer] 250 DO Work Phone: Patient Educationon 04-03-20 [...] provider. Document Revised: 01/19/2022 Document Reviewed: 01/19/2022 Elsevier Patient Education ? 2022 [employer] Ray [facility] Urology Office/Clinic Noteon 04-03-2023 Urology [...] Contact Information RITESH ALTAMIRANO, CHARLOTTE Meneses, URL [address] [facility] [place] [address] Additional Instructions: keep appt w/ Patient Education Kegel Exercises Documentation recorded by the scribgdieon Fuentes accurately reflects the services(s) I performed and decisions made by me. Authenticated by Charlotte Baker PA-C on 04/03/2023 09:50:52. I, Valentine Fuentes, personally scribed for Charlotte Baker PA-C on 04/03/2023 09:31:40. . Problem List/Past Medical History Ongoing BPH without urinary obstruction Hesitancy Hypertension Incomplete bladder emptying Intertrigo mild CT (myocardial infarction) Nocturia Protein in urine Proteinuria Smoker Urethral meatal stenosis Urge incontinence Urinary incontinence without sensory awareness Urinary retention Historical No qualifying data Procedure/Surgical History Urethral dilatation (11/03/2022), TURP - Transurethral resection of prostate (08/31/2022), Cystoscopy (01/24/2022), Colonoscopy, Shoulder replacement. Medications amLODIPine 5 mg Tab Harrah Thyroid, Oral, Daily aspirin 81 mg oral [...] 07/12/ (more content not included)... Normal [facility] Comment on above: Result [...] Once daily Device check as directed per [facility] protocol Chief Complaint NEIL JERI is being seen for a 6 month [...] due to atrial fibrillation, on anticoagulation. 10. [id number] at least 5. Has bled score 2 [...] losartan in (more content not included)... Normal [facility] Tobacco Screening.on 023 Fall risk assessment b) One or more fall s in the last year [facility] [employer] 250 DO Work Phone: Tobacco use status [facility] b) No [facility] jaun 250 DO Work Phone: Patient Educationon 01-24-20 Patient Education Endocrinology Intertrigo Intertrigo is skin [...] conditioner or fan, if available. ? Apply fwqu-qkv-zxkwqgw and prescription medicines only as told by [...] well after activity or exercise. Use a chairman ceo on a cool setting to dry between [...] your skin and with medicines. ? Apply zmtn-izb-xesjrzu and prescription medicines only as told by your health care provider. ? Keep all follow-up visits as told by your health care provider. This is important. This information is not intended to replace advice given to you by your health care provider. Make sure you discuss any questions you have with your health care provider. Document Revised: 06/26/2022 Document Reviewed: 06/26/2022 [employer] Patient Education ? 2022 [employer] Ray [facility] Urology Office/Clinic Noteon 01-23-2023 Urology [...] E&M of Est. Patient Low 20-29 Min [id number] Orders: Urnls Dip Stick Auto w/o Microscopy POC 18013 Follow-up No qualifying data available f/u [facility]UI 8 wks. keep previously scheduled f/u w PRW this fall. Patient Education Intertrigo Problem List/Past Medical History Ongoing BPH without urinary obstruction Hesitancy Hypertension Incomplete bladder emptying mild CT (myocardial infarction) Nocturia Protein in urine Proteinuria Smoker Urethral meatal stenosis Urge incontinence Urinary incontinence without sensory awareness Urinary retention Historical No qualifying data Procedure/Surgical History Urethral dilatation (11/03/2022), TURP - Transurethral resection of prostate (08/31/2022), Cystoscopy (01/24/2022), Colonoscopy, Shoulder replacement. Medications amLODIPine 5 mg Tab Harrah Thyroid, Oral, Daily aspirin 81 mg oral [...] Negative (01/23/23 14:11:00) Ketones Urine Dipstick: Negative (01/23/23:11:00) Leukocytes Urine Dipstick: Negative (01/23/23 14:11:00) Nitrite Urine Dipstick: Negative (01/23/23 14:11:00) Protein Urine Dipstick: 1+ (30 mg/dl) (01/23/23 14:11:00) Specific Palmer Urine Dipstick: >=1.030 (01/23/23 14:11:00) Urine Appearance Urine Dipstick: Clear (01/23/23 14:11:00) Urine Color Urine Dipstick: Yellow (01/23/23 14:11:00) Urobilinogen Urine Dipstick: Normal 0.2-1 EU/dl (01/23/23 14:11:00) pH Urine Dipstick: 5.5 (01/23/23 14:11:00) Normal [facility] Comment on above: Result [...] Follow these instructions at home: ? Take ssoa-cyv-amwaenn and prescription medicines only as told by [...] 10/06/2016 Document Revised: 04/23/2019 Document Reviewed: 04/23/2019 [employer] Patient Education ? 2019 [employer]. [facility] Urology Office/Clinic Noteon 01-01-2023 Urology [...] [facility] [address], [place] [address]- Additional Instructions: 6 mos with UA Patient Education Urethral Stricture I, Jessica Landrum, personally scribed for Dr. Ferguson on 01/01/2023 13:19:03. . Documentation recorded by the scribe, Jessica Landrum, accurately reflects the services(s) I performed and decisions made by me. Authenticated by Dr. Ferguson on 01/01/2023 13:24:19. Problem List/Past Medical History Ongoing BPH without urinary obstruction Hesitancy Hypertension Incomplete bladder emptying mild CT (myocardial infarction) Nocturia Protein in urine Proteinuria Smoker Urethral meatal stenosis Urge incontinence Urinary incontinence without sensory awareness Urinary retention Historical No qualifying data Procedure/Surgical History TURP - Transurethral resection of prostate (08/31/2022), Cystoscopy (01/24/2022), Colonoscopy, Shoulder replacement. Medications amLODIPine 5 mg Tab Harrah Thyroid, Oral, Daily aspirin 81 mg oral [...] 03/ (more content not included)... Normal [facility] Comment on above: Result Comment: [...] MG Oral TabletTAKE 1 TABLET AT BEDTIME. Svvyhywaus-ZDHY-Meucypup 50-325-40 MG Oral TabletTAKE 1 TABLET 3 [...] PM Social (more content not included)... Normal [facility] Tobacco Screening.on 023 Fall risk assessment a) No falls within the last year [facility] [employer] 250 DO Work Phone: Tobacco use status [facility] b) No [facility] [employer] jaun 250 DO Work Phone: Office Visit [...] the time of your visit. Loulou Arreguin GRADE CHECKER in 1 weeks Follow up in 6 [...] MG Oral TabletTAKE 1 TABLET AT BEDTIME. Blthtshfcs-GULO-Pjuewwso 50-325-40 MG Oral TabletTAKE 1 TABLET 3 [...] Caffeine us (more content not included)... Normal [facility] Tobacco Screening.on 023 Adult depression screening assessment No [facility] [employer] DO Work Phone: Fall risk assessment a) No falls within the last year [facility] [employer] 250 DO Work Phone: Tobacco use status [facility] b) No [facility] [employer] 250 DO Work Phone: Office Visit (Cardiology)on [...] in adult Healthy Weight Tips; Status:Complete; Done: [id number] Some eating tips that can help you lose weight.; Status:Complete; Done: [id number] SocHx: Former smoker Tobacco Use Screening; Status:Complete; Done: [id number] Chief Complaint NEIL WILCOX is being seen for hypertension. Current Meds Medication NameInstruction amLODIPine Besylate 10 MG Oral TabletTAKE 1 TABLET DAILY. Atorvastatin Calcium 40 MG Oral TabletTAKE 1 TABLET AT BEDTIME. Imxfbbdzdz-WDSF-Zchipzri 50-325-40 MG Oral TabletTAKE 1 TABLET 3 [...] as previously mentioned Vitals Vital Signs Recorded: 11Sep2022 01:07PMRecorded: [id number] 01:00PM Systolic Hflpi024, LUE Diastolic Lying84, LUE Systolic Jmnpmol159, LUE Diastolic Eondecn78, LUE Systolic Aizlbkbs850, LUE Diastolic Lacgljcg26, LUE Heart Rate62, L Radial Height5 ft 9 in Olojxj427 lb BMI Bckrtkvydk43.99 kg/m2 BSA Calculated1.96 Physical Exam GENERAL: Well [...] Sep 15 2022 7:52PM EST (Author) Normal [facility] Covid-19 PCR (CVDTBH)on SARS-CoV-2 (COVID-19) RNA KEIKO+probe [...] for this test is supported by the [facility] Worker of Health and Human Service's (HHS's) declaration [...] #### [facility] [address] [place] [address] Dr. Oscar Paulino Office Visit (Cardiology)on 08-28-2022 [...] TABLET DAILY Basic Metabolic Panel; Status:Active; Requested for:[id number]; Overweight with body mass index (BMI) of 25 to 25.9 in adult Start: Spironolactone 25 MG Oral Tablet; TAKE 1 TABLET DAILY Healthy Weight Tips; Status:Complete; Done: [id number] Some eating tips that can help you lose weight.; Status:Complete; Done: [id number] Paroxysmal atrial fibrillation with RVR Start: Eliquis [...] these medications, (more content not included)... Normal [facility] Tobacco Screening.on 022 Fall risk assessment b) One or more fall s in the last year [facility] [employer] 250 DO Work Phone: Tobacco use status [facility] b) No [facility] [employer] 250 DO Work Phone: LIPID PROFILEon 08-25-2022 CHOL-HDL RATIO NORM SEE BELOW Normal [facility] Comment on above: Result Comment: 3.3 - 4.4 LOW RISK 4.4 - 7.1 AVERAGE RISK 7.1 - 11.0 MODERATE RISK >11.0 HIGH RISK Performed By: #### T , LIPID, CMP #### [facility] [address] [place], [place] [address] Dr. Oscar Paulino Cholesterol [Mass/Vol] 121 mg/dL Normal <=200 [facility] Comment on above: Performed By: #### T MANJIT, LIPID, CMP #### [facility] [address] [place], [place] [address] Dr. Oscar Paulino Cholesterol in HDL [Mass/Vol] 42 mg/dL Normal 40-60 [facility] Comment on above: Performed By: #### T SH, LIPID, CMP #### [facility] [address] [address] [address] Oscar Paulino Cholesterol in LDL [Mass/Vol] 66.2 mg/dL Normal [facility] Comment on above: Performed By: #### T SH, LIPID, CMP #### [facility] [address] [place] [address] Dr. Oscar Paulino Cholesterol.total/Chol esterol in HDL [Mass ratio] 2.9 {ratio} Normal [facility] Comment on above: Performed By: #### T SH, LIPID, CMP #### [facility] [address] [place] [address] Dr. Oscar Paulino HDL NORMAL > or = 60 mg/dl - LO W CARDIOVASCULAR RISK <40 mg/dl - HIGH CARDIOVASCULAR RISK Normal [facility] Comment on above: Performed By: #### T MANJIT, LIPID, CMP #### [facility] [address] [place] [address] Dr. Oscar Paulino LDL CALC NORMAL SEE BELOW Normal [facility] Comment on above: Result Comment: <100 mg/dl OPTIMAL 100 - 129 mg/dl NEAR OR ABOVE OPTIMAL 130 - 159 mg/dl BORDERLINE HIGH 160 - 189 mg/dl HIGH >190 mg/dl VERY HIGH Performed By: #### T SH, LIPID, CMP #### [facility] [address] [place] [address] Dr. Oscar Paulino Triglyceride [Mass/Vol] 64 mg/dL Normal <=150 [facility] Comment on above: Performed By: #### T SH, LIPID, CMP #### [facility] [address] [place] [address] Dr. Oscar Paulino VLDL CALC 12.8 mg/dL Normal [facility] Comment on above: Performed By: #### T SH, LIPID, CMP #### [facility] [address] [place] [address] Dr. Oscar Paulino PROF 14(COMP METB)on 022 Albumin [Mass/Vol] 3.6 g/dL Normal 3.4-5.0 [facility] Comment on above: Performed By: #### T SH, LIPID, CMP #### [facility] [address] [address] [address] Oscar Paulino Albumin/Globulin [Mass ratio] 0.8 {ratio} Normal [facility] Comment on above: Performed By: #### T SH, LIPID, CMP #### [facility] [address] [address] [address] Oscar Paulino ALP [Catalytic activity/Vol] 92 U/L Normal 46-116 [facility] Comment on above: Performed By: #### T SH, LIPID, CMP #### [facility] [address] [address] [address] Oscar Paulino ALT [Catalytic activity/Vol] 17 U/L Normal 16-63 [facility] Comment on above: Performed By: #### T SH, LIPID, CMP #### [facility] [address] [address] [address] Oscar Paulino Anion gap [Moles/Vol] 9.7 mmol/L Normal [facility] Comment on above: Performed By: #### T SH, LIPID, CMP #### [facility] [address] [address] [address] Oscar Paulino AST [Catalytic activity/Vol] 10 U/L Critically low 15-37 [facility] Comment on above: Performed By: #### T SH, LIPID, CMP #### [facility] [address] [address] [address] Oscar Paulino Bilirubin [Mass/Vol] 0.3 mg/dL Normal 0.2-1.0 [facility] Comment on above: Performed By: #### T SH, LIPID, CMP #### [facility] [address] [address] [address] Oscar Paulino Calcium [Mass/Vol] 9.4 mg/dL Normal 8.5-10.1 [facility] Comment on above: Performed By: #### T SH, LIPID, CMP #### [facility] [address] [address] [address] Oscar Paulino Chloride [Moles/Vol] 102 mmol/L Normal 98-107 [facility] Comment on above: Performed By: #### T SH, LIPID, CMP #### [facility] [address] [address] [address] Oscar Paulino CO2 [Moles/Vol] 29.1 mmol/L Normal 21.0-32.0 [facility] [facility] Comment on above: Performed By: #### T SH, LIPID, CMP #### [facility] [address] [address] [address] Oscar Paulino Creatinine [Mass/Vol] 1.08 mg/dL Normal 0.70-1.30 [facility] Comment on above: Performed By: #### T SH, LIPID, CMP #### [facility] [address] [address] [address] Oscar Paulino EGFR-AF GREEK >60 Normal >=60 [facility] Comment on above: Performed By: #### T SH, LIPID, CMP #### [facility] [address] [address] [address] Oscar Paulino EGFR-NON AF GREEK >60 Normal >=60 [facility] Comment on above: Performed By: #### T SH, LIPID, CMP #### [facility] [address] [address] [address] Oscar Paulino Globulin (S) [Mass/Vol] 4.3 g/dL Normal [facility] Comment on above: Performed By: #### T SH, LIPID, CMP #### [facility] [address] [address] [address] Oscar Paulino Glucose [Mass/Vol] 104 mg/dL Normal 74-106 [facility] Comment on above: Performed By: #### T SH, LIPID, CMP #### [facility] [address] [address] [address] Oscar Paulino Potassium [Moles/Vol] 3.8 mmol/L Normal 3.5-5.1 [facility] Comment on above: Performed By: #### T SH, LIPID, CMP #### [facility] [address] [address] [address] Oscar Paulino Protein [Mass/Vol] 7.9 g/dL Normal 6.4-8.2 [facility] Comment on above: Performed By: #### T SH, LIPID, CMP #### [facility] [address] [place] [address] Dr. Oscar Paulino Sodium [Moles/Vol] 137 mmol/L Normal 136-145 [facility] Comment on above: Performed By: #### T SH, LIPID, CMP #### [facility] [address] [place] [address] Dr. Oscar Paulino Urea nitrogen [Mass/Vol] 18.0 mg/dL Normal 7.0-18.0 [facility] Comment on above: Performed By: #### T SH, LIPID, CMP #### [facility] [address] [place] [address] Dr. Oscar Paulino Urea nitrogen/Creatinine [Mass ratio] 16.7 mg/mg Normal [facility] Comment on above: Performed By: #### T SH, LIPID, CMP #### [facility] [address] [place] [address] Dr. Oscar Paulino TSHon 08-25-2022 TSH 2.967 uIU/mL Normal 0.358-3.74 0 [facility] Comment on above: Performed By: #### T SH, LIPID, CMP #### [facility] [address] [place] [address] Dr. Oscar Paulino CBC AUTO DIFFon 08-22-2022 BASO # 0.0 103/ul Normal 0.0-0.1 [facility] Comment on above: Performed By: #### T SH, LIPID, CMP #### [facility] [address] [place] [address] Dr. Oscar Paulino Basophils/100 WBC (Bld) 0.3 % Normal 0.2-2.0 [facility] Comment on above: Performed By: #### T SH, LIPID, CMP #### [facility] [address] [place] [address] Dr. Oscar Paulino EO # 0.3 103/ul Normal 0.0-0.7 [facility] Comment on above: Performed By: #### T SH, LIPID, CMP #### [facility] [address] [place] [address] Dr. Oscar Paulino Eosinophils/100 WBC (Bld) 7.3 % Critically high 0.9-7.0 [facility] Comment on above: Performed By: #### T SH, LIPID, CMP #### [facility] [address] [place] [address] Dr. Oscar Paulino Erythrocyte distribution width (RBC) [Ratio] 11.9 % Normal 11.0-15.0 [facility] Comment on above: Performed By: #### T SH, LIPID, CMP #### [facility] [address] [place] [address] Dr. Oscar Paulino Hematocrit (Bld) [Volume fraction] 33.8 % Critically low 42.0-54.0 [facility] Comment on above: Performed By: #### T SH, LIPID, CMP #### [facility] [address] [place] [address] Dr. Oscar Paulino Hemoglobin (Bld) [Mass/Vol] 12.0 g/dL Critically low 14.0-18.0 [facility] Comment on above: Performed By: #### T SH, LIPID, CMP #### [facility] [address] [place] [address] Dr. Oscar Paulino IG # 0.01 10e3/ul Normal 0.00-0.03 [facility] Comment on above: Performed By: #### T SH, LIPID, CMP #### [facility] [address] [place] [address] Dr. Oscar Paulino IG % 0.3 % Normal 0.0-0.5 [facility] Comment on above: Performed By: #### T SH, LIPID, CMP #### [facility] [address] [place] [address] Dr. Oscar Paulino LYMPH # 1.4 103/ul Normal 1.2-3.8 [facility] Comment on above: Performed By: #### T SH, LIPID, CMP #### [facility] [address] [place] [address] Dr. Oscar Paulino Lymphocytes/100 WBC (Bld) 39.2 % Normal 20.5-60.0 [facility] Comment on above: Performed By: #### T SH, LIPID, CMP #### [facility] [address] [place] [address] Dr. Oscar Paulino MANUAL DIFF REQ NO Normal [facility] Comment on above: Performed By: #### T SH, LIPID, CMP #### [facility] [address] [place] [address] Dr. Oscar Paulino MCH (RBC) [Entitic mass] 36.4 pg Critically high 25.9-34.0 [facility] Comment on above: Performed By: #### T SH, LIPID, CMP #### [facility] [address] [place] [address] Dr. Oscar Paulino MCHC (RBC) [Mass/Vol] 35.5 g/dL Critically high 29.9-35.2 [facility] Comment on above: Performed By: #### T SH, LIPID, CMP #### [facility] [address] [place] [address] Dr. Oscar Paulino MCV (RBC) [Entitic vol] 102.4 fL Critically high 80.0-94.0 [facility] Comment on above: Performed By: #### T SH, LIPID, CMP #### [facility] [address] [place] [address] Dr. Oscar Paulino MONO # 0.2 103/ul Critically low 0.3-0.8 [facility] Comment on above: Performed By: #### T SH, LIPID, CMP #### [facility] [address] [place] [address] Dr. Oscar Paulino Monocytes/100 WBC (Bld) 6.8 % Normal 1.7-12.0 [facility] Comment on above: Performed By: #### T SH, LIPID, CMP #### [facility] [address] [place] [address] Dr. Oscar Paulino NEUT # 1.6 103/ul Normal 1.4-6.5 [facility] Comment on above: Performed By: #### T SH, LIPID, CMP #### [facility] [address] [place] [address] Dr. Oscar Paulino Neutrophils/100 WBC (Bld) 46.1 % Normal 43.0-75.0 [facility] Comment on above: Performed By: #### T MANJIT LIPID, CMP #### [facility] [address] [address] [address] Oscar Paulino Platelet mean volume (Bld) [Entitic vol] 8.5 fL Critically low 9.5-13.5 [facility] Comment on above: Performed By: #### T MANJIT, LIPID, CMP #### [facility] [address] [place] [address] Dr. Oscar Paulino PLT 191 103/ul Normal 150-450 [facility] Comment on above: Performed By: #### T MANJIT LIPID, CMP #### [facility] [address] [place] [address] Dr. Oscar Paulino RBC 3.30 106/ul Critically low 4.70-6.10 [facility] Comment on above: Performed By: #### T MANJIT LIPID, CMP #### [facility] [address] [place] [address] Dr. Oscar Paulino WBC 3.6 103/ul Critically low 4.0-11.0 [facility] Comment on above: Performed By: #### T MANJIT LIPID, CMP #### [facility] [address] [place] [address] Dr. Oscar Paulino PROF CHEM 8 (BAS METB)on Anion gap [Moles/Vol] 11.0 mmol/L Normal Th [facility] Comment on above: Performed By: #### B MP #### [facility] [address] [place] [address] Dr. Oscar Paulino Calcium [Mass/Vol] 9.4 mg/dL Normal 8.5-10.1 [facility] Comment on above: Performed By: #### B MP #### [facility] [address] [place] [address] Dr. Oscar Paulino Chloride [Moles/Vol] 103 mmol/L Normal 98-107 [facility] Comment on above: Performed By: #### B MP #### [facility] [address] [address] [address] Oscar Paulino CO2 [Moles/Vol] 27.7 mmol/L Normal 21.0-32.0 [facility] Comment on above: Performed By: #### B MP #### [facility] [address] [address] [address] Oscar Paulino Creatinine [Mass/Vol] 1.07 mg/dL Normal 0.70-1.30 [facility] Comment on above: Performed By: #### B MP #### [facility] [address] [address] [address] Oscar Paulino EGFR-AF GREEK >60 Normal >=60 [facility] Comment on above: Performed By: #### B MP #### [facility] [address] [place] [address] Dr. Oscar Paulino EGFR-NON AF GREEK >60 Normal >=60 [facility] Comment on above: Performed By: #### B MP #### [facility] [address] [address] [address] Oscar Paulino Glucose [Mass/Vol] 99 mg/dL Normal 74-106 [facility] Comment on above: Performed By: #### B MP #### [facility] [address] [address] [address] Oscar Paulino Potassium [Moles/Vol] 3.7 mmol/L Normal 3.5-5.1 [facility] Comment on above: Performed By: #### B MP #### [facility] [address] [address] [address] Oscar Paulino Sodium [Moles/Vol] 138 mmol/L Normal 136-145 [facility] Comment on above: Performed By: #### B MP #### [facility] [address] [place] [address] Dr. Oscar Paulino Urea nitrogen [Mass/Vol] 20.0 mg/dL Critically high 7.0-18.0 [facility] Comment on above: Performed By: #### B MP #### [facility] [address] [place] [address] Dr. Oscar Paulino Urea nitrogen/Creatinine [Mass ratio] 18.7 mg/mg Normal [facility] Comment on above: Performed By: #### B MP #### [facility] [address] [place] [address] Dr. Oscar Paulino PROTIMEon 08-22-2022 INR Coag (PPP) [Relative time] 1.06 {INR} Normal [facility] Comment on above: Performed By: #### P T, PTT #### [facility] [address] [place] [address] Dr. Oscar Paulino INR GUIDELINES SEE BELOW Normal [facility] Comment on above: Result Comment: ELYSIA RED INR: 2.0 - 3.0 CONDITIONS NOT LISTED BELOW 2.5 - 3.5 FOR PROSTHETIC HEART VALVE REPLACEMENT 2.5 - 3.5 RECURRENT THROMBOSIS Performed By: #### P T, PTT #### [facility] [address] [place] [address] Dr. Oscar Paulino PT Coag (PPP) [Time] 11.4 s Normal 9.0-11.6 [facility] Comment on above: Performed By: #### P T, PTT #### [facility] [address] [place] [address] Dr. Oscar Paulino PTTon 08-22-2022 aPTT Coag (Bld) [Time] 26.6 s Normal 22.3-36.2 Th [facility] Comment on above: Performed By: #### P T, PTT #### [facility] [address] [place] [address] Dr. Oscar Paulino Covid-19 PCR (CVDTB)on 06-25 [...] for this test is supported by the [employer] Worker of Health and Human Service's (HHS's) declaration [...] SARS-CoV-2. Performed By: #### C VDTBH #### [facility] [address] [place] [address] Dr. Oscar Paulino [facility]19 [facility]on SARS-CoV-2 (COVID-19) RNA KEIKO+probe Ql (Unsp [...] for this test is supported by the [employer] [facility] Worker of Health and Human Service's (HHS's) declaration [...] SARS-CoV-2. Performed By: #### C VDTBH #### [facility] [address] [place] [address] [id number] [address] Oscar Paulino CBC AUTO DIFFon 06-28-2022 BASO # 0.0 103/ul Normal 0.0-0.1 [facility] Comment on above: Performed By: #### T SH, LIPID, CMP #### [facility] [address] [place] [address] Dr. Oscar Paulino Basophils/100 WBC (Bld) 0.4 % Normal 0.2-2.0 [facility] Comment on above: Performed By: #### T SH, LIPID, CMP #### [facility] [address] [place] [address] Dr. Oscar Paulino EO # 0.2 103/ul Normal 0.0-0.7 [facility] Comment on above: Performed By: #### T SH, LIPID, CMP #### [facility] [address] [place] [address] Dr. Oscar Paulino Eosinophils/100 WBC (Bld) 7.5 % Critically high 0.9-7.0 [facility] Comment on above: Performed By: #### T SH, LIPID, CMP #### [facility] [address] [place] [address] Dr. Oscar Paulino Erythrocyte distribution width (RBC) [Ratio] 12.3 % Normal 11.0-15.0 [facility] Comment on above: Performed By: #### T SH, LIPID, CMP #### [facility] [address] [place] [address] Dr. Oscar Paulino Hematocrit (Bld) [Volume fraction] 34.0 % Critically low 42.0-54.0 [facility] Comment on above: Performed By: #### T SH, LIPID, CMP #### [facility] [address] [place] [address] Dr. Oscar Paulino Hemoglobin (Bld) [Mass/Vol] 11.6 g/dL Critically low 14.0-18.0 [facility] Comment on above: Performed By: #### T SH, LIPID, CMP #### [facility] [address] [place] [address] Dr. Oscar Paulino IG # 0.00 10e3/ul Normal 0.00-0.03 [facility] Comment on above: Performed By: #### T SH, LIPID, CMP #### [facility] [address] [place] [address] Dr. Oscar Paulino IG % 0.0 % Normal 0.0-0.5 [facility] Comment on above: Performed By: #### T SH, LIPID, CMP #### [facility] [address] [place] [address] Dr. Oscar Paulino LYMPH # 1.0 103/ul Critically low 1.2-3.8 [facility] Comment on above: Performed By: #### T SH, LIPID, CMP #### [facility] [address] [place] [address] Dr. Oscar Paulino Lymphocytes/100 WBC (Bld) 40.1 % Normal 20.5-60.0 [facility] Comment on above: Performed By: #### T SH, LIPID, CMP #### [facility] [address] [place] [address] Dr. Oscar Paulino MANUAL DIFF REQ NO Normal [facility] Comment on above: Performed By: #### T SH, LIPID, CMP #### [facility] [address] [place] [address] Dr. Ocsar Paulino MCH (RBC) [Entitic mass] 35.7 pg Critically high 25.9-34.0 [facility] Comment on above: Performed By: #### T SH, LIPID, CMP #### [facility] [address] [place] [address] Dr. Oscar Paulino MCHC (RBC) [Mass/Vol] 34.1 g/dL Normal 29.9-35.2 [facility] Comment on above: Performed By: #### T SH, LIPID, CMP #### [facility] [address] [place] [address] Dr. Oscar Paulino MCV (RBC) [Entitic vol] 104.6 fL Critically high 80.0-94.0 [facility] Comment on above: Performed By: #### T SH, LIPID, CMP #### [facility] [address] [place] [address] Dr. Oscar Paulino MONO # 0.2 103/ul Critically low 0.3-0.8 [facility] Comment on above: Performed By: #### T SH, LIPID, CMP #### [facility] [address] [place] [address] Dr. Oscar Paulino Monocytes/100 WBC (Bld) 6.7 % Normal 1.7-12.0 [facility] Comment on above: Performed By: #### T SH, LIPID, CMP #### [facility] [address] [place] [address] Dr. Oscar Paulino NEUT # 1.1 103/ul Critically low 1.4-6.5 [facility] Comment on above: Performed By: #### T SH, LIPID, CMP #### [facility] [address] [place] [address] Dr. Oscar Paulino Neutrophils/100 WBC (Bld) 45.3 % Normal 43.0-75.0 [facility] Comment on above: Performed By: #### T MANJIT LIPID, CMP #### [facility] [address] [place] [address] Dr. Oscar Paulino Platelet mean volume (Bld) [Entitic vol] 8.4 fL Critically low 9.5-13.5 [facility] Comment on above: Performed By: #### T SH, LIPID, CMP #### [facility] [address] [place] [address] Dr. Oscar Paulino PLT 164 103/ul Normal 150-450 [facility] Comment on above: Performed By: #### T SH, LIPID, CMP #### [facility] [address] [place] [address] Dr. Oscar Paulino RBC 3.25 106/ul Critically low 4.70-6.10 [facility] Comment on above: Performed By: #### T SH, LIPID, CMP #### [facility] [address] [place] [address] Dr. Oscar Paulino WBC 2.5 103/ul Critically low 4.0-11.0 [facility] Comment on above: Performed By: #### T SH, LIPID, CMP #### [facility] [address] [place] [address] Dr. Oscar Paulino PROF CHEM 8 (BAS METB)on Anion gap [Moles/Vol] 9.9 mmol/L Normal [facility] Comment on above: Performed By: #### B MP #### [facility] [address] [address] [address] Oscar Paulino Calcium [Mass/Vol] 9.4 mg/dL Normal 8.5-10.1 [facility] Comment on above: Performed By: #### B MP #### [facility] [address] [address] [address] Oscar Paulino Chloride [Moles/Vol] 105 mmol/L Normal 98-107 [facility] Comment on above: Performed By: #### B MP #### [facility] [address] [address] [address] Oscar Paulino CO2 [Moles/Vol] 27.3 mmol/L Normal 21.0-32.0 [facility] Comment on above: Performed By: #### B MP #### [facility] [address] [place] [address] Dr. Oscar Paulino Creatinine [Mass/Vol] 1.05 mg/dL Normal 0.70-1.30 [facility] Comment on above: Performed By: #### B MP #### [facility] [address] [place] [address] Dr. Oscar Paulino EGFR-AF GREEK >60 Normal >=60 [facility] Comment on above: Performed By: #### B MP #### [facility] [address] [place] [address] Dr. Oscar Paulino EGFR-NON AF GREEK >60 Normal >=60 [facility] Comment on above: Performed By: #### B MP #### [facility] [address] [place] [address] Dr. Oscar Paulino Glucose [Mass/Vol] 105 mg/dL Normal 74-106 [facility] Comment on above: Performed By: #### B MP #### [facility] [address] [place] [address] Dr. Oscar Paulino Potassium [Moles/Vol] 4.2 mmol/L Normal 3.5-5.1 [facility] Comment on above: Performed By: #### B MP #### [facility] [address] [place] [address] Dr. Oscar Paulino Sodium [Moles/Vol] 138 mmol/L Normal 136-145 [facility] Comment on above: Performed By: #### B MP #### [facility] [address] [place] [address] Dr. Oscar Paulino Urea nitrogen [Mass/Vol] 15.0 mg/dL Normal 7.0-18.0 [facility] Comment on above: Performed By: #### B MP #### [facility] [address] [place] [address] Dr. Oscar Paulino Urea nitrogen/Creatinine [Mass ratio] 14.3 mg/mg Normal [facility] Comment on above: Performed By: #### B MP #### [facility] [address] [place] [address] Dr. Oscar Paulino PROTIMEon 06-28-2022 INR Coag (PPP) [Relative time] 1.03 {INR} Normal [facility] Comment on above: Performed By: #### T MANJIT LIPID, CMP #### [facility] [address] [place] [address] Dr. Oscar Paulino INR GUIDELINES SEE BELOW Normal [facility] Comment on above: Result Comment: ELYSIA RED INR: 2.0 - 3.0 CONDITIONS NOT LISTED BELOW 2.5 - 3.5 FOR PROSTHETIC HEART VALVE REPLACEMENT 2.5 - 3.5 RECURRENT THROMBOSIS Performed By: #### T MANJIT LIPID, CMP #### [facility] [address] [place] [address] Dr. Oscar Paulino PT Coag (PPP) [Time] 11.1 s Normal 9.0-11.6 [facility] Comment on above: Performed By: #### T MANJIT, LIPID, CMP #### [facility] [address] [place] [address] Dr. Oscar Paulino PTTon 06-28-2022 aPTT Coag (Bld) [Time] 26.2 s Normal 22.3-36.2 Th [facility] Comment on above: Performed By: #### T MANJIT, LIPID, CMP #### [facility] [address] [place] [address] Dr. Oscar Paulino Tobacco Screening.on 022 Adult depression screening assessment Yes [place] [employer]hung zamorano 250 DO Work Phone: [facility] depression screening assessment [facility] Jody zamorano 250 DO Work Phone: Fall risk assessment a) No falls within the last year [place] [employer]hung zamorano 250 DO Work Phone: Tobacco use status [facility] b) No [place] [facility] zamorano 250 DO Work Phone: Tobacco Screening. 1-Several days [place] Jody zamorano 250 DO Work Phone: Tobacco Screening. 0-Not at all [facility] HeartLula zamorano 250 DO Work Phone: Tobacco Screening. 2-More than half the days [facility] [employer] zamorano 250 DO Work Phone: Tobacco Screening. Somewhat Difficult [facility] [employer]at[employer] zamorano 250 DO Work Phone: CT STROKE HEAD [...] by: EBONI PETE Date: 2022-04-08 00:27 Normal [facility] CARDIAC STRESS/REST INJE CTIONon 10-03-2021 [facility] CARDIAC STRESS/REST INJECTION Patient Name: NEIL WILCOX STUDY: MYOCARDIAL PERFUSION STRESS TEST WITH LEXISCAN Performing facility: [facility], [address] [place] [address], [address], [address] Provider: Loulou Arreguin RN, DIRECTOR OF BUSINESS DEVELOPMENT PCP: Dr. Paul Cooney Supervising provider: Erick Wise DO, [facility] INDICATION: HTN Fatigue HISTORY: Gender: M; Age: 75 y/o ; Height: 0 cm; Weight: 0 kg. High Cholesterol; HTN; Fatigue; TIA Vertigo Denies smoking. COMPARISON: No comparison. ACCESSION NUMBER(S): [id number]; [id number]; [id number] ORDERING CLINICIAN: LOULOU ARREGUIN TECHNIQUE: ONE DAY [...] Electronically signed by: MATTI MIDDLETON MD Normal [facility] Risk Screeningon 08-31 Fall risk assessment a) No falls within the last year [facility] [employer] 250 DO Work Phone: Tobacco use status CPHS b) No -[facility] [employer] 250 DO Work Phone: Tobacco Screening.on Fall risk assessment a) No falls within the last year [facility] [employer] 250 DO Work Phone: Tobacco use status CPHS b) No [facility] [employer] 250 DO Work Phone: BASIC METABOLIC PANELon 03-24 Anion gap [Moles/Vol] 9 mmol/L Normal 0-19 [facility] Calcium [Mass/Vol] 8.9 mg/dL Normal 8.5-10.4 [facility] Comment on above: Result Comment: RESU CHECKED Chloride [Moles/Vol] 104 mmol/L Normal 97-107 [facility] CO2 [Moles/Vol] 24 mmol/L Normal 24-31 [facility] Creatinine [Mass/Vol] 0.9 mg/dL Normal 0.4-1.6 [facility] ESTIMATED GFR 88 mL/min/1.73 m2 Normal [facility] Comment on above: Result Comment: GFR ml/min/1.73m2 Stage ----- 90 1 60-89 2 30-59 3 15-29 4 <15 5 For -Americans, multiply EGFR result by 1.210 Calculation not validated for patients under 18 years of age. Performed at [facility] [address] [facility] [address] Glucose [Mass/Vol] 134 mg/dL High 65-99 [facility] Potassium [Moles/Vol] 3.9 mmol/L Normal 3.4-5.1 [facility] Sodium [Moles/Vol] 137 mmol/L Normal 133-145 [facility] Urea nitrogen [Mass/Vol] 13 mg/dL Normal 8-25 [facility] Urea nitrogen/Creatinine [Mass ratio] 14.4 mg/mg Normal 8-21 [facility] CBC with Diffon 04-06-2021 AB IMMATURE NEUT 0.00 K/UL Normal 0.0-0.1 [facility] ABS BASO 0.00 K/UL Normal 0.00-0.22 [facility] ABS EOS 0.02 K/UL Normal 0-0.45 [facility] ABS NEUTROPHILS 3.73 K/UL Normal 1.8-7.7 [facility] ABS.NEUT.CALCULATED 3.73 K/UL Normal [facility] Comment on above: Result Comment: Perf ormed at [facility] [address] [facility] [address] Basophils/100 WBC (Bld) 0.00 % Normal 0-1 [facility] DIFF TYPE AUTO DIFF Normal [facility] Eosinophils/100 WBC (Bld) 0.40 % Normal 0-3 [facility] Erythrocyte distribution width (RBC) [Ratio] 11.6 % Low 11.7-15.0 [facility] Hematocrit (Bld) [Volume fraction] 29.6 % Low 41-50 [facility] Hemoglobin (Bld) [Mass/Vol] 10.0 g/dL Low 13.5-16.5 [facility] Lymphocytes (Bld) [#/Vol] 0.97 10*3/uL Low 1.2-3.2 [facility] Lymphocytes/100 WBC (Bld) 19.10 % Low 20-40 [facility] MCH (RBC) [Entitic mass] 35.5 pg High 26-34 [facility] MCHC 33.8 % Normal 31-37 [facility] MCV (RBC) [Entitic vol] 105.0 fL High 80-100 [facility] MEAN PLT VOL 8.4 CU Normal 7.0-12.6 [facility] Monocytes (Bld) [#/Vol] 0.35 10*3/uL Normal 0-0.8 [facility] Monocytes/100 WBC (Bld) 6.90 % Normal 0-8 [facility] Neutrophils/100 WBC (Bld) 0.00 % Normal 0.0-1.0 [facility] Neutrophils/100 WBC (Bld) 73.60 % High 50-70 [facility] Platelets (Bld) [#/Vol] 115 10*3/uL Low 150-450 [facility] RBC (Bld) [#/Vol] 2.82 10*6/uL Low 4.5-5.5 [facility] RDW-SD 44.8 FL Normal 37.0-54.0 [facility] WBC (Bld) [#/Vol] 5.1 10*3/uL Normal 4.5-11.0 [facility] PROTHROMBIN TIMEon ANTICOAGULANT INFORMATION NOT REPO RTED TO LABORATORY Normal [facility] INR Coag (PPP) [Relative time] 1.0 {INR} Normal 0.86-1.16 [facility] Comment on above: Result Comment: INR Theraputic Range: 2.0-3.5 Performed at [address] [address] PT Coag (PPP) [Time] 11.3 s Normal 9.3-12.7 [facility] PTTon 04-06-2021 aPTT Coag (Bld) [Time] 21.9 s Low 22.0-32.5 [facility] Comment on above: Result Comment: Perf ormed at [address] [address] CBC with Diffon 04-01-2021 AB IMMATURE NEUT 0.00 K/UL Normal 0.0-0.1 [facility] ABS BASO 0.02 K/UL Normal 0.00-0.22 [facility] ABS EOS 0.19 K/UL Normal 0-0.45 [facility] ABS NEUTROPHILS 1.56 K/UL Low 1.8-7.7 [facility] ABS.NEUT.CALCULATED 1.56 K/UL Normal [facility] Comment on above: Result Comment: Perf ormed at [address] [address] Basophils/100 WBC (Bld) 0.60 % Normal 0-1 [facility] DIFF TYPE AUTO DIFF Normal [facility] Eosinophils/100 WBC (Bld) 5.30 % High 0-3 [facility] Erythrocyte distribution width (RBC) [Ratio] 11.6 % Low 11.7-15.0 [facility] Hematocrit (Bld) [Volume fraction] 40.9 % Low 41-50 [facility] Hemoglobin (Bld) [Mass/Vol] 13.4 g/dL Low 13.5-16.5 [facility] Lymphocytes (Bld) [#/Vol] 1.44 10*3/uL Normal 1.2-3.2 [facility] Lymphocytes/100 WBC (Bld) 40.30 % High 20-40 [facility] MCH (RBC) [Entitic mass] 35.2 pg High 26-34 [facility] MCHC 32.8 % Normal 31-37 [facility] MCV (RBC) [Entitic vol] 107.3 fL High 80-100 [facility] MEAN PLT VOL 8.5 CU Normal 7.0-12.6 [facility] Monocytes (Bld) [#/Vol] 0.36 10*3/uL Normal 0-0.8 [facility] Monocytes/100 WBC (Bld) 10.10 % High 0-8 [facility] Neutrophils/100 WBC (Bld) 0.00 % Normal 0.0-1.0 [facility] Neutrophils/100 WBC (Bld) 43.70 % Low 50-70 [facility] Platelets (Bld) [#/Vol] 149 10*3/uL Low 150-450 [facility] RBC (Bld) [#/Vol] 3.81 10*6/uL Low 4.5-5.5 [facility] RDW-SD 46.3 FL Normal 37.0-54.0 [facility] WBC (Bld) [#/Vol] 3.6 10*3/uL Low 4.5-11.0 [facility] COMPREHENSIVE METABOLIC PANE Melvin 04-01-2021 Albumin [Mass/Vol] 4.1 g/dL Normal 3.5-5.0 [facility] Albumin/Globulin [Mass ratio] 1.2 {ratio} Low 1.5-3.0 [facility] ALP [Catalytic activity/Vol] 77 U/L Normal 35-125 [facility] ALT [Catalytic activity/Vol] 16 U/L Normal 5-40 [facility] Anion gap [Moles/Vol] 10 mmol/L Normal 0-19 [facility] AST [Catalytic activity/Vol] 18 U/L Normal 5-40 [facility] Bilirubin [Mass/Vol] 0.3 mg/dL Normal 0.1-1.2 [facility] Calcium [Mass/Vol] 10.0 mg/dL Normal 8.5-10.4 [facility] Chloride [Moles/Vol] 104 mmol/L Normal 97-107 [facility] CO2 [Moles/Vol] 27 mmol/L Normal 24-31 [facility] Creatinine [Mass/Vol] 0.9 mg/dL Normal 0.4-1.6 [facility] ESTIMATED GFR 88 mL/min/1.73 m2 Normal [facility] Comment on above: Result Comment: GFR ml/min/1.73m2 Stage ----- 90 1 60-89 2 30-59 3 15-29 4 <15 5 For -Americans, multiply EGFR result by 1.210 Calculation not validated for patients under 18 years of age. Performed at [facility] [address] [facility] [address] Globulin (S) [Mass/Vol] 3.3 g/dL Normal 1.9-3.7 [facility] Glucose [Mass/Vol] 95 mg/dL Normal 65-99 [facility] Potassium [Moles/Vol] 4.3 mmol/L Normal 3.4-5.1 [facility] Protein [Mass/Vol] 7.4 g/dL Normal 5.9-7.9 [facility] Sodium [Moles/Vol] 141 mmol/L Normal 133-145 [facility] Urea nitrogen [Mass/Vol] 16 mg/dL Normal 8-25 [facility] Urea nitrogen/Creatinine [Mass ratio] 17.8 mg/mg Normal 8-21 [facility] SARS-CoV-2,INFLUENZA A/B NUC LEIC ACID TESTon 04-01-2021 EUA DISCLAIMER Normal [facility] Comment on above: Result Comment: This [...] or revoked sooner. Performed at [place] [address] FLU A by PCR Negative [facility] FLU B by PCR Negative [facility] SARS-CoV-2 (COVID-19) RNA KEIKO+probe Ql (Unsp spec) Negative Normal NEG [facility] TYPE AND SCREENon 04-01-2021 TYPE AND SCREEN BLOOD COMPONENT TYPE - RED CELL GROUP Performed at [place] [address] UNITS ORDERED - 0 Performed at [place] [address] SPECIMEN EXPIRATION - 04/08/2021 Performed at [place] [address] ABO/RH(D) - A POSITIVE Performed at [place] [address] ANTIBODY SCREEN - NEGATIVE Performed at [place] [address] ARM BAND NUMBER - [id number] Performed at [place] [address] SURGERY DATE - [id number] Performed at [place] [address] TEST ORDERED - TYPE AND SCREEN Performed at [place] [address] PT TRANSFUSION HISTORY - BLOOD BANK RECORD SEARCH COMPLETED NO PREVIOUS RECORD NO PREVIOUS TRANSFUSIONS IN LIFETIME Performed at [address] Comment on above: Performed By: #### T [facility] [place] #### [place] [address] UA-REFLEX TO CULTUREon 04-01 Bacteria identified Cx Nom (U) CULTURE NOT INDICATED [facility] Comment on above: Result Comment: CULT URE NOT INDICATED Performed at [place] [address] BILI Negative Normal NEG [facility] Clarity (U) CLEAR Normal [facility] Color (U) YELLOW Normal [facility] GLUC Negative Normal NEG [facility] Hemoglobin Ql (U) Negative Normal NEG [facility] KET Negative Normal NEG [facility] LEUK Negative Normal NEG [facility] NIT Negative Normal NEG [facility] pH (U) 6.5 [pH] Normal 4.6-8.0 [facility] PROT TRACE Abnormal NEG [facility] RBC NONE SEEN Normal 0-3 [facility] SP GRAV,URINE 1.025 Normal 1.005-1.03 0 [facility] Urinalysis dipstick W Reflex Microscopic panel (U) MANUAL MICROSCOPIC URINES Normal [facility] URO 0.2 MG/DL Normal 0-1.0 [facility] WBC NONE SEEN Normal 0-3 [facility] OTHER Normal [facility] Comment on above: Result Comment: MUCO US Performed at [facility] [address] [facility] [address] Basophils Auto (Bld) [#/Vol] on 02-07-2021 Basophils (Bld) [#/Vol] 0.0 10*3/uL 0.0-0.2 [facility] Basophils/100 WBC Auto (Bld) on 02-07-2021 Basophils/100 WBC (Bld) 0.2 % [facility] Blood hemoglobin measurement (mass/volume)on 02-07-2021 Hemoglobin (Bld) [Mass/Vol] 12.8 g/dL 13.0-17.0 [facility] Blood leukocytes automated c ount (number/volume)on 02-07-2021 WBC (Bld) [#/Vol] 3.5 10*3/uL 4.5-11.0 [facility] Body fluid albumin measureme nt (mass/volume)on 02-07-2021 Albumin (Body fld) [Mass/Vol] 3.7 g/dL 3.2-5.5 [facility] Cholesterol [Mass/volume] in Serum or Plasmaon 02-07-2021 Cholesterol [Mass/Vol] 127 mg/dL 140-200 [facility] Comment on above: Chol less than 200 m g/dl low riskChol 201-239 mg/dl borderline riskChol 240 mg/dl and greater high risk Cholesterol in LDL Calc [Mas s/Vol]on 02-07-2021 Cholesterol in LDL [Mass/Vol] 66 mg/dL 0-100 [facility] Comment on above: LDL ATP III CLASSIFI CATIONLDL less than 100 mg/dL OptimalLDL 100-129 mg/dL Near or above optimalLDL 130-159 mg/dL Borderline highLDL 160-189 mg/dL HighLDL greater than 189 mg/dL Very high Cholesterol in VLDL Calc [Ma ss/Vol]on 02-07-2021 Cholesterol in VLDL [Mass/Vol] 10 mg/dL [facility] Creatinine and Glomerular fi ltration rate.predicted panel (S/P/Bld)on 02-07-2021 Creatinine [Mass/Vol] 0.95 mg/dL 0.64-1.27 [facility] Eosinophils Auto (Bld) [#/Vo l]on 02-07-2021 Eosinophils (Bld) [#/Vol] 0.2 10*3/uL 0.0-0.45 [facility] Eosinophils/100 WBC Auto (Bl d)on 02-07-2021 Eosinophils/100 WBC (Bld) 5.2 % [facility] Erythrocyte distribution wid th Auto (RBC) [Ratio]on 02-07-2021 Erythrocyte distribution width (RBC) [Ratio] 13.0 % 12.0-14.8 [facility] Estimated glomerular filtrat ion rate (GFR) non- Americanon 02-07-2021 GFR/1.73 sq M.predicted among non-blacks MDRD (S/P/Bld) [Vol rate/Area] > 60 mL/Min [facility] Globulin Calc (S) [Mass/Vol] on 02-07-2021 Globulin (S) [Mass/Vol] 3.6 g/dL [facility] Hematocrit Auto (Bld) [Volum e fraction]on 02-07-2021 Hematocrit (Bld) [Volume fraction] 38.4 % 38.8-50.0 [facility] Laboratory - Hematology and Cell countson 02-07-2021 Nucleated RBC/100 WBC (Bld) [Ratio] 0.1 % 0-0.5 [facility] Lymphocytes Auto (Bld) [#/Vo l]on 02-07-2021 Lymphocytes (Bld) [#/Vol] 1.2 10*3/uL 1.00-4.8 [facility] Lymphocytes/100 WBC Auto (Bl d)on 02-07-2021 Lymphocytes/100 WBC (Bld) 33.5 % [facility] MCH Auto (RBC) [Entitic mass ]on 02-07-2021 MCH (RBC) [Entitic mass] 35.8 pg 27.5-35.2 [facility] MCHC Auto (RBC) [Mass/Vol]on 02-07-2021 MCHC (RBC) [Mass/Vol] 33.4 g/dL 32.5-35.6 [facility] MCV Auto (RBC) [Entitic vol] on 02-07-2021 MCV (RBC) [Entitic vol] 107.1 fL 83.5-101 [facility] Monocytes Auto (Bld) [#/Vol] on 02-07-2021 Monocytes (Bld) [#/Vol] 0.4 10*3/uL 0.0-0.8 [facility] Monocytes/100 WBC Auto (Bld) on 02-07-2021 Monocytes/100 WBC (Bld) 10.3 % [facility] Neutrophils Auto (Bld) [#/Vo l]on 02-07-2021 Neutrophils (Bld) [#/Vol] 1.8 10*3/uL 1.8-7.7 [facility] Neutrophils/100 WBC Auto (Bl d)on 02-07-2021 Neutrophils/100 WBC (Bld) 50.8 % [facility] No Panel Informationon 02-07 Estimated GFR () > 60 mL/Min [facility] Comment on above: GFR estimated refere nce range: According to KDOQI guidelines, <60 ml/min/1.73m2 is sufficient to diagnose a patient with chronic kidney disease. Pharmacy Creatinine Clearance (Chem N/A [facility] Platelet mean volume Auto (B ld) [Entitic vol]on 02-07-2021 Platelet mean volume (Bld) [Entitic vol] 6.7 fL 6.6-10.1 [facility] Platelets Auto (Bld) [#/Vol] on 02-07-2021 Platelets (Bld) [#/Vol] 220 10*3/uL 150-450 [facility] Protein [Mass/volume] in Ser um or Plasmaon 02-07-2021 Protein [Mass/Vol] 7.3 g/dL 6.1-7.9 [facility] RBC Auto (Bld) [#/Vol]on RBC (Bld) [#/Vol] 3.59 10*6/uL 3.90-5.[address] [facility] Serum or plasma alanine huntley otransferase measurement without P-5'-P (enzymatic activion 02-07-2021 ALT No additional P-5'-P [Catalytic activity/Vol] 13 U/L 10-60 [facility] Serum or plasma albumin/glob ulin mass ratioon 02-07-2021 Albumin/Globulin [Mass ratio] 1.0 {ratio} [facility] Serum or plasma alkaline latoya sphatase measurement (enzymatic activity/volume)on 02-07-2021 ALP [Catalytic activity/Vol] 71 U/L 32-92 [facility] Serum or plasma aspartate am inotransferase measurement (enzymatic activity/volume)on 02-07-2021 AST [Catalytic activity/Vol] 13 U/L 10-42 [facility] Serum or plasma calcium ilana urement (mass/volume)on 02-07-2021 Calcium [Mass/Vol] 9.7 mg/dL 8.2-10.2 [facility] Serum or plasma chloride rishabh surement (moles/volume)on 02-07-2021 Chloride [Moles/Vol] 102 mmol/L 95-114 [facility] Serum or plasma glucose ilana urement (mass/volume)on 02-07-2021 Glucose [Mass/Vol] 95 mg/dL 70-100 [facility] Comment on above: ADA recommended refe rence rangeRandom Glucose Reference Range is dependent on time and content of last meal. Glucose of more than 200 mg/dL in a nonstressed, ambulatory subject supports the diagnosis of Diabetes Mellitus. Serum or plasma high density lipoprotein (HDL) cholesterol measurementon 02-07-2021 Cholesterol in HDL [Mass/Vol] 51 mg/dL 29-71 [facility] Comment on above: HDL CHOL ATP-III CLA SSIFICATION Cardiovascular RiskHDL > or equal to 60 mg/dL LOWHDL < 40 mg/dL HIGH Serum or plasma potassium me asurement (moles/volume)on 02-07-2021 Potassium [Moles/Vol] 4.5 mmol/L 3.5-5.1 [facility] Serum or plasma sodium measu rement (moles/volume)on 02-07-2021 Sodium [Moles/Vol] 137 mmol/L 136-146 [facility] Serum or plasma total biliru bin measurement (mass/volume)on 02-07-2021 Bilirubin [Mass/Vol] 0.6 mg/dL 0.3-1.2 [facility] Serum or plasma total carbon dioxide measurement (moles/volume)on 02-07-2021 CO2 [Moles/Vol] 24.7 mmol/L 22.0-30.0 [facility] Serum or plasma total choles terol/high density lipoprotein (HDL) cholesterol mass noni 02-07-2021 Cholesterol.total/Chol esterol in HDL [Mass ratio] 2.5 {ratio} [facility] Serum or plasma urea nitroge n measurement (mass/volume)on 02-07-2021 Urea nitrogen [Mass/Vol] 19 mg/dL 9-23 [facility] TSH DL <= 0.005 mIU/L Qnon 0 02-07-2021 TSH Qn 1.17 m[IU]/L 0.45-5.33 [facility] Thyroxine (T4) free [Mass/vo lume] in Serum or Plasmaon 02-07-2021 Free T4 [Mass/Vol] 0.88 ng/dL 0.61-1.12 [facility] Triglyceride [Mass/volume] i n Serum or Plasmaon 02-07-2021 Triglyceride [Mass/Vol] 52 mg/dL 35-149 [facility] Comment on above: TRIG ATP III CLASSIF ICATIONTRIG less than 150 mg/dL NormalTRIG 150-199 mg/dL Borderline highTRIG 200-500 mg/dL High TRIG greater than 500 mg/dL Very highStandard traceable to the Center for Disease Conrtrol and Prevention (CDC) test method. WOUND CULTURE-TISSUEon 12-22 WOUND CULTURE-TISSUE Specimen source XXX : SHOULDER RIGHT Performed at [facility] [address] [facility] [address] Service Cmnt XXX-Imp: HOLD FOR 2 WEEKS Microscopic observation: NO ORGANISMS SEEN 1+ WBC Bacteria identified: ANAEROBIC GRAM POSITIVE BACILLI ONE COLONY MOST CLOSELY RESEMBLING CUTIBACTERIUM (PROPIONIBACTERIUM) ACNES Performed at [facility],[address] [place] [id number] : FINAL 12/22/2020 Normal [facility] Comment on above: Performed By: #### T [facility] [place] #### [place] Laboratory [place] [id number] CBC with Diffon 12-17-2020 AB IMMATURE NEUT 0.00 K/UL Normal 0.0-0.1 [facility] ABS BASO 0.00 K/UL Normal 0.00-0.22 [facility] ABS EOS 0.00 K/UL Normal 0-0.45 [facility] ABS NEUTROPHILS 2.47 K/UL Normal 1.8-7.7 [facility] ABS.NEUT.CALCULATED 2.47 K/UL Normal [facility] Comment on above: Result Comment: Perf ormed at [facility] [address] [place] [address] Basophils/100 WBC (Bld) 0.00 % Normal 0-1 [facility] DIFF TYPE AUTO DIFF Normal [facility] Eosinophils/100 WBC (Bld) 0.00 % Normal 0-3 [facility] Erythrocyte distribution width (RBC) [Ratio] 12.1 % Normal 11.7-15.0 [facility] Hematocrit (Bld) [Volume fraction] 30.6 % Low 41-50 [facility] Hemoglobin (Bld) [Mass/Vol] 10.4 g/dL Low 13.5-16.5 [facility] Lymphocytes (Bld) [#/Vol] 0.75 10*3/uL Low 1.2-3.2 [facility] Lymphocytes/100 WBC (Bld) 20.90 % Normal 20-40 [facility] MCH (RBC) [Entitic mass] 36.2 pg High 26-34 [facility] MCHC 34.0 % Normal 31-37 [facility] MCV (RBC) [Entitic vol] 106.6 fL High 80-100 [facility] MEAN PLT VOL 8.4 CU Normal 7.0-12.6 [facility] Monocytes (Bld) [#/Vol] 0.37 10*3/uL Normal 0-0.8 [facility] Monocytes/100 WBC (Bld) 10.30 % High 0-8 [facility] Neutrophils/100 WBC (Bld) 0.00 % Normal 0.0-1.0 [facility] Neutrophils/100 WBC (Bld) 68.80 % Normal 50-70 [facility] Platelets (Bld) [#/Vol] 122 10*3/uL Low 150-450 [facility] RBC (Bld) [#/Vol] 2.87 10*6/uL Low 4.5-5.5 [facility] RDW-SD 47.8 FL Normal 37.0-54.0 [facility] WBC (Bld) [#/Vol] 3.6 10*3/uL Low 4.5-11.0 [facility] COMPREHENSIVE METABOLIC PANE Melvin 12-17-2020 Albumin [Mass/Vol] 3.5 g/dL Normal 3.5-5.0 [facility] Albumin/Globulin [Mass ratio] 1.3 {ratio} Low 1.5-3.0 [facility] ALP [Catalytic activity/Vol] 63 U/L Normal 35-125 [facility] ALT [Catalytic activity/Vol] 10 U/L Normal 5-40 [facility] Comment on above: Result Comment: Perf ormed at [facility] [address] [address] [place] [address] Anion gap [Moles/Vol] 11 mmol/L Normal 0-19 [facility] AST [Catalytic activity/Vol] 15 U/L Normal 5-40 [facility] Bilirubin [Mass/Vol] 0.7 mg/dL Normal 0.1-1.2 [facility] Calcium [Mass/Vol] 9.0 mg/dL Normal 8.5-10.4 [facility] Chloride [Moles/Vol] 99 mmol/L Normal 97-107 [facility] CO2 [Moles/Vol] 26 mmol/L Normal 24-31 [facility] Creatinine [Mass/Vol] 0.9 mg/dL Normal 0.4-1.6 [facility] Globulin (S) [Mass/Vol] 2.7 g/dL Normal 1.9-3.7 [facility] Glucose [Mass/Vol] 129 mg/dL High 65-99 [facility] Potassium [Moles/Vol] 3.8 mmol/L Normal 3.4-5.1 [facility] Protein [Mass/Vol] 6.2 g/dL Normal 5.9-7.9 [facility] Sodium [Moles/Vol] 136 mmol/L Normal 133-145 [facility] Urea nitrogen [Mass/Vol] 13 mg/dL Normal 8-25 [facility] Urea nitrogen/Creatinine [Mass ratio] 14.4 mg/mg Normal 8-21 [facility] FREE T4on 12-09-2020 Free T4 [Mass/Vol] 1.2 ng/dL Normal 0.9-1.7 [facility] Comment on above: Result Comment: Perf ormed at [address] [address] Performed By: #### T [facility] [place] #### [address] [address] CBC with Diffon 12-08-2020 AB IMMATURE NEUT 0.00 K/UL Normal 0.0-0.1 [facility] ABS BASO 0.01 K/UL Normal 0.00-0.22 [facility] ABS EOS 0.20 K/UL Normal 0-0.45 [facility] ABS NEUTROPHILS 1.38 K/UL Low 1.8-7.7 [facility] Comment on above: Result Comment: DARELL ECTED ON 12/08 AT 1254: PREVIOUSLY REPORTED 1.39 ABS.NEUT.CALCULATED 1.39 K/UL Normal [facility] Comment on above: Result Comment: Perf ormed at [facility] [address] [facility] [address] Basophils/100 WBC (Bld) 0.30 % Normal 0-1 [facility] DIFF TYPE AUTO DIFF Normal [facility] Eosinophils/100 WBC (Bld) 6.40 % High 0-3 [facility] Erythrocyte distribution width (RBC) [Ratio] 11.9 % Normal 11.7-15.0 [facility] Hematocrit (Bld) [Volume fraction] 40.0 % Low 41-50 [facility] Hemoglobin (Bld) [Mass/Vol] 13.5 g/dL Normal 13.5-16.5 [facility] Lymphocytes (Bld) [#/Vol] 1.20 10*3/uL Normal 1.2-3.2 [facility] Lymphocytes/100 WBC (Bld) 38.60 % Normal 20-40 [facility] MCH (RBC) [Entitic mass] 36.0 pg High 26-34 [facility] MCHC 33.8 % Normal 31-37 [facility] MCV (RBC) [Entitic vol] 106.7 fL High 80-100 [facility] MEAN PLT VOL 8.5 CU Normal 7.0-12.6 [facility] Monocytes (Bld) [#/Vol] 0.31 10*3/uL Normal 0-0.8 [facility] Monocytes/100 WBC (Bld) 10.00 % High 0-8 [facility] Neutrophils/100 WBC (Bld) 0.00 % Normal 0.0-1.0 [facility] Neutrophils/100 WBC (Bld) 44.70 % Low 50-70 [facility] PLATELET ESTIMATE ADEQUATE Normal [facility] Platelets (Bld) [#/Vol] 168 10*3/uL Normal 150-450 [facility] RBC (Bld) [#/Vol] 3.75 10*6/uL Low 4.5-5.5 [facility] RBC morphology finding Nom (Bld) CONSISTENT WITH PERIPHERAL SMEAR Normal [facility] RDW-SD 46.6 FL Normal 37.0-54.0 [facility] WBC (Bld) [#/Vol] 3.1 10*3/uL Low 4.5-11.0 [facility] WBC MORPHOLOGY SMEAR REVIEWED AND F OUND CONSISTENT WITH AUTOMATED DIFFERENTIAL Normal [facility] COMPREHENSIVE METABOLIC PANE Melvin 12-08-2020 Albumin [Mass/Vol] 4.2 g/dL Normal 3.5-5.0 [facility] Albumin/Globulin [Mass ratio] 1.3 {ratio} Low 1.5-3.0 [facility] ALP [Catalytic activity/Vol] 77 U/L Normal 35-125 [facility] ALT [Catalytic activity/Vol] 10 U/L Normal 5-40 [facility] Anion gap [Moles/Vol] 10 mmol/L Normal 0-19 [facility] AST [Catalytic activity/Vol] 16 U/L Normal 5-40 [facility] Bilirubin [Mass/Vol] 0.7 mg/dL Normal 0.1-1.2 [facility] Calcium [Mass/Vol] 9.6 mg/dL Normal 8.5-10.4 [facility] Chloride [Moles/Vol] 102 mmol/L Normal 97-107 [facility] CO2 [Moles/Vol] 28 mmol/L Normal 24-31 [facility] Creatinine [Mass/Vol] 1.1 mg/dL Normal 0.4-1.6 [facility] ESTIMATED GFR 70 mL/min/1.73 m2 Normal [facility] Comment on above: Result Comment: GFR ml/min/1.73m2 Stage ----- 90 1 60-89 2 30-59 3 15-29 4 <15 5 For -Americans, multiply EGFR result by 1.210 Calculation not validated for patients under 18 years of age. Performed at [facility] [address] [facility] [address] Globulin (S) [Mass/Vol] 3.2 g/dL Normal 1.9-3.7 [facility] Glucose [Mass/Vol] 94 mg/dL Normal 65-99 [facility] Potassium [Moles/Vol] 4.1 mmol/L Normal 3.4-5.1 [facility] Protein [Mass/Vol] 7.4 g/dL Normal 5.9-7.9 [facility] Sodium [Moles/Vol] 140 mmol/L Normal 133-145 [facility] Urea nitrogen [Mass/Vol] 15 mg/dL Normal 8-25 [facility] Urea nitrogen/Creatinine [Mass ratio] 13.6 mg/mg Normal 8-21 [facility] EKGon 12-08-2020 Electrocardiogram EKG Ventricular Rate : 51 BPM Atrial Rate : 51 BPM P-R Interval : 186 ms QRS Duration : 102 ms Q-T Interval : 432 ms QTC Calculation(Bazett) : 398 ms Calculated P [place] : 70 degrees Calculated R [place] : 44 degrees Calculated T [place] : 63 degrees Diagnosis:Sinus bradycardia with occasional Premature ventricular complexes Otherwise normal ECG No previous ECGs available Confirmed by XIN TONG DO ([id number]) on 12/10/2020 9:37:02 AM Normal [facility] Electrocardiogram EKG Ventricular Rate : 57 BPM Atrial Rate : 57 BPM P-R Interval : 174 ms QRS Duration : 102 ms Q-T Interval : 430 ms QTC Calculation(Bazett) : 418 ms Calculated P [place] : 74 degrees Calculated R [place] : 56 degrees Calculated T [place] : 69 degrees Diagnosis:Sinus bradycardia with Premature atrial complexes and Premature ventricular complexes or Fusion complexes Otherwise normal ECG When compared with ECG of 08-DEC-2020 11:04, Premature atrial complexes are now Present Confirmed by XIN TONG DO ([id number]) on 12/10/2020 9:36:45 AM [facility] SARS-CoV-2,INFLUENZA A/B NUC LEIC ACID TESTon 12-08-2020 EUA DISCLAIMER [facility] Comment on above: Result Comment: This [...] is terminated or revoked sooner. Performed at [place] [id number] FLU A by PCR Negative [facility] FLU B by PCR Negative [facility] SARS-CoV-2 (COVID-19) RNA KEIKO+probe Ql (Unsp spec) Negative [facility] TSHon 12-08-2020 TSH 0.24 MIU/L Low 0.27-4.20 [facility] Comment on above: Result Comment: Perf ormed at [address] [address] Performed By: #### T [facility] ####Main Laboratory[address] [address] UA-REFLEX TO CULTUREon 12-08 Bacteria identified Cx Nom (U) CULTURE NOT INDICATED [facility] Comment on above: Result Comment: CULT URE NOT INDICATED Performed at [facility] [address] [facility] [address] BILI Negative Normal [facility] Clarity (U) CLEAR [facility] Color (U) YELLOW [facility] GLUC Negative Normal [facility] Hemoglobin Ql (U) Negative Normal NEG [facility] KET Negative Normal NEG [facility] LEUK Negative Normal NEG [facility] NIT Negative Normal NEG [facility] pH (U) 6.0 [pH] Normal 4.6-8.0 [facility] PROT TRACE Abnormal NEG [facility] RBC OCC Normal 0-3 [facility] SP GRAV,URINE 1.025 Normal 1.005-1.03 0 [facility] Urinalysis dipstick W Reflex Microscopic panel (U) MANUAL MICROSCOPIC URINES Normal [facility] URO 0.2 MG/DL Normal 0-1.0 [facility] WBC OCC Normal 0-3 [facility] OTHER Normal [facility] Comment on above: Result Comment: PRES ENT MUCOUS Performed at [facility] [address] [facility] [address] B12/Folate Panelon Cobalamin (Vitamin B12) [Mass/Vol] 507 pg/mL Normal 232-1245 [facility] Comment on above: Performed By: #### F T4, B12FOL, TSHX #### [place] [facility] [address] [place] [address] [id number] Brilliandeer Looper: Juan F Dominguez MD Folic Acid 10.6 ng/mL Normal >4.8 [facility] Comment on above: Performed By: #### F T4, B12FOL, TSHX #### [place] [address] [place] [address] [id number] Brilliandeer Looper: Juan F Dominguez MD T4, Freeon 10-13-2020 Thyroxine, Free 0.97 ng/dL 0.93 - 1.7 ng/dL [place] TSH w/reflex to FT4on 2020 TSH Qn 0.04 m[IU]/L Low 0.30-5.00 [facility] Comment on above: Performed By: #### F T4, B12FOL, TSHX #### [place] [address] [place] [address] [id number] Brilliandeer Looper: Juan F Dominguez MD TSH with Reflexon 10-13-2020 Interpretation and review of laboratory results Abnormal [place] TSH Qn 0.04 m[IU]/L Low [place] Thyroxine, Freeon 10-13-2020 Thyroxine, Free 0.97 ng/dL Normal 0.93-1.70 [facility] Comment on above: Performed By: #### F T4, B12FOL, TSHX #### [facility] [address] [place] [address] Brilliandeer Looper: Juan F Dominguez MD Vitamin B12 & Folateon 10-13 Cobalamin (Vitamin B12) [Mass/Vol] 507 pg/mL 232 - 1245 pg/mL [place] Folate 10.6 ng/mL >4.8 [place] C REACTIVE PROTEINon 021 C REACTIVE PROTEIN 0.3 MG/DL Normal 0-2.0 [facility] Comment on above: Result Comment: LESS THAN Performed at [address] [address] Performed By: #### C RP #### Main Laboratory [address] [address] CBC with Diffon 10-11-2020 AB IMMATURE NEUT 0.00 K/UL Normal 0.0-0.1 [facility] ABS BASO 0.02 K/UL Normal 0.00-0.22 [facility] ABS EOS 0.21 K/UL Normal 0-0.45 [facility] ABS NEUTROPHILS 1.64 K/UL Low 1.8-7.7 [facility] ABS.NEUT.CALCULATED 1.64 K/UL Normal [facility] Comment on above: Result Comment: Perf ormed at [facility] [address] [facility] [address] Basophils/100 WBC (Bld) 0.50 % Normal 0-1 [facility] DIFF TYPE AUTO DIFF Normal [facility] Eosinophils/100 WBC (Bld) 5.10 % High 0-3 [facility] Erythrocyte distribution width (RBC) [Ratio] 11.3 % Low 11.7-15.0 [facility] Hematocrit (Bld) [Volume fraction] 39.6 % Low 41-50 [facility] Hemoglobin (Bld) [Mass/Vol] 13.6 g/dL Normal 13.5-16.5 [facility] Lymphocytes (Bld) [#/Vol] 1.74 10*3/uL Normal 1.2-3.2 [facility] Lymphocytes/100 WBC (Bld) 42.00 % High 20-40 [facility] MCH (RBC) [Entitic mass] 36.2 pg High 26-34 [facility] MCHC 34.3 % Normal 31-37 [facility] MCV (RBC) [Entitic vol] 105.3 fL High 80-100 [facility] MEAN PLT VOL 8.4 CU Normal 7.0-12.6 [facility] Monocytes (Bld) [#/Vol] 0.53 10*3/uL Normal 0-0.8 [facility] Monocytes/100 WBC (Bld) 12.80 % High 0-8 [facility] Neutrophils/100 WBC (Bld) 0.00 % Normal 0.0-1.0 [facility] Neutrophils/100 WBC (Bld) 39.60 % Low 50-70 [facility] Platelets (Bld) [#/Vol] 186 10*3/uL Normal 150-450 [facility] RBC (Bld) [#/Vol] 3.76 10*6/uL Low 4.5-5.5 [facility] RDW-SD 44.8 FL Normal 37.0-54.0 [facility] WBC (Bld) [#/Vol] 4.1 10*3/uL Low 4.5-11.0 [facility] SEDIMENTATION RATEon 021 SEDIMENTATION RATE 50 MM/HR High 0-12 [facility] Comment on above: Result Comment: Perf ormed at [facility] [address] [address] [facility] [address] Automated basophil %on 10-07 Basophils/100 WBC (Bld) 0.2 % [facility] Automated basophil counton 0 2020 Basophils (Bld) [#/Vol] 0.0 10*3/uL 0.0-0.2 [facility] Automated blood lymphocyte c ount (number/volume)on 2020 Lymphocytes (Bld) [#/Vol] 1.2 10*3/uL 1.00-4.8 [facility] Automated blood lymphocyte c ount as percentage of total leukocyteson 2020 Lymphocytes/100 WBC (Bld) 25.0 % [facility] Automated blood monocyte cou nton 2020 Monocytes (Bld) [#/Vol] 0.6 10*3/uL 0.0-0.8 [facility] Automated blood platelet cou nt (count/volume)on 2020 Platelets (Bld) [#/Vol] 177 10*3/uL 150-450 [facility] Automated blood platelet rishabh n volume measurementon 2020 Platelet mean volume (Bld) [Entitic vol] 6.9 fL 6.6-10.1 [facility] Automated eosinophil %on Eosinophils/100 WBC (Bld) 3.8 % [facility] Automated eosinophil counton 2020 Eosinophils (Bld) [#/Vol] 0.2 10*3/uL 0.0-0.45 [facility] Automated erythrocyte distri bution width ratioon 2020 Erythrocyte distribution width (RBC) [Ratio] 12.3 % 12.0-14.8 [facility] Automated erythrocyte mean c orpuscular hemoglobin (mass per erythrocyte)on 2020 MCH (RBC) [Entitic mass] 35.9 pg 27.5-35.2 [facility] Automated erythrocyte mean c orpuscular hemoglobin concentration measurement (mass/volon 2020 MCHC (RBC) [Mass/Vol] 34.2 g/dL 32.5-35.6 [facility] Automated erythrocyte mean c orpuscular volumeon 2020 MCV (RBC) [Entitic vol] 105.1 fL 83.5-101 [facility] Automated monocyte %on 10-07 Monocytes/100 WBC (Bld) 12.5 % [facility] Automated neutrophil %on Neutrophils/100 WBC (Bld) 58.5 % [facility] Blood erythrocytes automated count (number/volume)on 2020 RBC (Bld) [#/Vol] 3.74 10*6/uL 3.90-5.[address] [facility] Blood hemoglobin measurement (mass/volume)on 2020 Hemoglobin (Bld) [Mass/Vol] 13.4 g/dL 13.0-17.0 [facility] Blood leukocytes automated c ount (number/volume)on 2020 WBC (Bld) [#/Vol] 4.6 10*3/uL 4.5-11.0 [facility] Blood neutrophil count by au tomated method (number/volume)on 2020 Neutrophils (Bld) [#/Vol] 2.7 10*3/uL 1.8-7.7 [facility] Body fluid albumin measureme nt (mass/volume)on 2020 Albumin (Body fld) [Mass/Vol] 3.6 g/dL 3.2-5.5 [facility] Cholesterol [Mass/volume] in Serum or Plasmaon 2020 Cholesterol [Mass/Vol] 93 mg/dL 140-200 [facility] Comment on above: Chol less than 200 m g/dl low riskChol 201-239 mg/dl borderline riskChol 240 mg/dl and greater high risk Cholesterol in LDL [Mass/vol ume] in Serum or Plasma by calculationon 2020 Cholesterol in LDL [Mass/Vol] 42 mg/dL 0-100 [facility] Comment on above: LDL ATP III CLASSIFI CATIONLDL less than 100 mg/dL OptimalLDL 100-129 mg/dL Near or above optimalLDL 130-159 mg/dL Borderline highLDL 160-189 mg/dL HighLDL greater than 189 mg/dL Very high Cholesterol in VLDL [Mass/vo lume] in Serum or Plasma by calculationon 2020 Cholesterol in VLDL [Mass/Vol] 7 mg/dL [facility] Estimated glomerular filtrat ion rate (GFR) non- Americanon 2020 GFR/1.73 sq M predicted among non-blacks MDRD (S/P/Bld) [Vol rate/Area] 51 mL/min/{1.73_m2} [facility] Hematocrit [Volume Fraction] of Blood by Automated counton 2020 Hematocrit (Bld) [Volume fraction] 39.3 % 38.8-50.0 [facility] Otheron 2020 GFR/1.73 sq M.predicted MDRD (S/P/Bld) [Vol rate/Area] mL/min/{1.73_m2} [facility] Comment on above: GFR estimated refere nce range: According to KDOQI guidelines, <60 ml/min/1.73m2 is sufficient to diagnose a patient with chronic kidney disease. Nucleated RBC/100 WBC (Bld) [Ratio] 0.0 % 0-0.5 [facility] Creatinine Clearance (Chem N/A [facility] Protein [Mass/volume] in Ser um or Plasmaon 2020 Protein [Mass/Vol] 7.3 g/dL 6.1-7.9 [facility] Serum globulin measurement b y calculation (mass/volume)on 2020 Globulin (S) [Mass/Vol] 3.7 g/dL [facility] Serum or plasma alanine huntley otransferase measurement without P-5'-P (enzymatic activion 2020 ALT No additional P-5'-P [Catalytic activity/Vol] 23 U/L 10-60 [facility] Serum or plasma albumin/glob ulin mass ratioon 2020 Albumin/Globulin [Mass ratio] 1.0 {ratio} [facility] Serum or plasma alkaline latoya sphatase measurement (enzymatic activity/volume)on 2020 ALP [Catalytic activity/Vol] 63 U/L 32-92 [facility] Serum or plasma aspartate am inotransferase measurement (enzymatic activity/volume)on 2020 AST [Catalytic activity/Vol] 18 U/L 10-42 [facility] Serum or plasma calcium ilana urement (mass/volume)on 2020 Calcium [Mass/Vol] 9.8 mg/dL 8.2-10.2 [facility] Serum or plasma chloride rishabh surement (moles/volume)on 2020 Chloride [Moles/Vol] 104 mmol/L 95-114 [facility] Serum or plasma creatinine m easurement with calculation of estimated glomerular filtron 2020 Creatinine [Mass/Vol] 1.37 mg/dL 0.64-1.27 [facility] Serum or plasma glucose ilana urement (mass/volume)on 2020 Glucose [Mass/Vol] 116 mg/dL 70-100 [facility] Comment on above: ADA recommended refe rence rangeRandom Glucose Reference Range is dependent on time and content of last meal. Glucose of more than 200 mg/dL in a nonstressed, ambulatory subject supports the diagnosis of Diabetes Mellitus. Serum or plasma high density lipoprotein (HDL) cholesterol measurementon 2020 Cholesterol in HDL [Mass/Vol] 43 mg/dL 29-71 [facility] Comment on above: HDL CHOL ATP-III CLA SSIFICATION Cardiovascular RiskHDL > or equal to 60 mg/dL LOWHDL < 40 mg/dL HIGH Serum or plasma potassium me asurement (moles/volume)on 2020 Potassium [Moles/Vol] 4.1 mmol/L 3.5-5.1 [facility] Serum or plasma sodium measu rement (moles/volume)on 2020 Sodium [Moles/Vol] 140 mmol/L 136-146 [facility] Serum or plasma total biliru bin measurement (mass/volume)on 2020 Bilirubin [Mass/Vol] 0.7 mg/dL 0.3-1.2 [facility] Serum or plasma total carbon dioxide measurement (moles/volume)on 2020 CO2 [Moles/Vol] 24.4 mmol/L 22.0-30.0 [facility] Serum or plasma total choles terol/high density lipoprotein (HDL) cholesterol mass noni 2020 Cholesterol.total/Chol esterol in HDL [Mass ratio] 2.2 {ratio} [facility] Serum or plasma urea nitroge n measurement (mass/volume)on 2020 Urea nitrogen [Mass/Vol] 24 mg/dL 9-23 [facility] Triglyceride [Mass/volume] i n Serum or Plasmaon 2020 Triglyceride [Mass/Vol] 39 mg/dL 35-149 [facility] Comment on above: TRIG ATP [...] Jeffery Caceres MD 02/04/20 Final result Normal [facility] 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 [facility], [place] EXAMINATION: CT OF T HE HEAD WITHOUT [...] of the visualized skull or soft tissues. [place], [place] Faustino, Mhpn Incoming R adiant Results From [employer] - 02/04/2020 4:14 PM EDT EXAMINATION: CT [...] cerebral artery infarct without evidence for hemorrhage. [facility] [place] EVENT MONITORon 01-07-[address] [address] EVENT MONITOR PATIENT NAME: NEIL WILCOX : 1945 MED REC NO: [id number] ROOM: [facility] ACCOUNT NO: [id number] ADMIT DATE: 12/21/2019 PROVIDER: Sabine Schrader EVENT [...] 4. Rare PVC's with couplets. SABINE SCHRADER /PGAYTAN Doc#: Unknown Normal [facility] CTA HEAD NECK W CONTRASTon 0 [...] Wilton Parekh MD 12/22/19 Final result Normal [facility] Comp Metabolic Pr/rfx MGon 0 12-22-2019 AST [Catalytic activity/Vol] 21 U/L Normal <40 [facility] Comment on above: Performed By: #### C MPX, GLYHGB, LIPR, LACTIC, CDP #### [address] [address] Brilliandeer Looper: Juan F Dominguez MD Drug Scr, Abuse, Uron 2019 Amphetamine(s),Ur Negative Normal NEG [facility] Comment on above: Result Comment: (Positive cutoff 1000 ng/mL) Performed By: #### Artem SCHULZ UA, UMICAO #### [facility] [address] [place] [address] Brilliandeer Looper: Juan F Dominguez MD Barbiturate(s),Ur Positive Abnormal NEG [facility] Comment on above: Result Comment: (Positive cutoff 200 ng/mL) Performed By: #### D ZEUS UA, UMICAO #### [place] [address] [place] [phone] Brilliandeer Looper: Juan F Dominguez MD Base excess Calc (Bld) [Moles/Vol] Negative Normal NEG [facility] Comment on above: Result Comment: (Positive cutoff 300 ng/mL) Performed By: #### D ZEUS UA, UMICAO #### [facility] [address] [place] [address] Brilliandeer Looper: Juan F Dominguez MD Benzodiazepine(s) Negative Normal NEG [facility] Comment on above: Result Comment: (Positive cutoff 200 ng/mL) Performed By: #### Artem SCHULZ UA, UMICAO #### [facility] [address] [place] [address] Brilliandeer Looper: Juan F Dominguez MD Cannabinoid(s),Ur Negative Normal NEG [facility] Comment on above: Result Comment: (Positive cutoff 50 ng/mL) Performed By: #### Artem SCHULZ UA, UMICAO #### [facility] [address] [place] [phone] Brilliandeer Looper: Juan F Dominguez MD Interpretive Info Assay provides medic al screening only. The absence of expected drug(s) and/or Normal [facility] Comment on above: Result Comment: meta bolite(s) may indicate diluted or adulterated urine, limitations of testing or timing of collection. Testing for legal purposes should be confirmed by another method. To request confirmation of test result, please call the lab within 7 days of sample submission. Performed By: #### Artem SCHULZ UA, UMICAO #### [facility] [address] [place] [phone] Brilliandeer Looper: Juan F Dominguez MD Methadone Ql (U) Negative Normal NEG [facility] Comment on above: Result Comment: (Positive cutoff 300 ng/mL) Performed By: #### Artem SCHULZ UA, UMICAO #### [facility] [address] [place] [address] Brilliandeer Looper: Juan F Dominguez MD Opiate(s), Ur Negative Normal NEG [facility] Comment on above: Result Comment: (Positive cutoff 300 ng/mL) Performed By: #### Artem AU UA, UMICAO #### [facility] [address] [place] [phone] Brilliandeer Looper: Juan F Dominguez MD Oxycodone, Urine Negative Normal NEG [facility] Comment on above: Result Comment: (Positive cutoff 100 ng/mL) Performed By: #### ALEXIS MIRANDA, UMICAO #### [facility] [address] [place] [address] Brilliandeer Looper: Juan F Dominguez MD Phencyclidine, Ur Negative Normal NEG [facility] Comment on above: Result Comment: (Positive cutoff 25 ng/mL) Performed By: #### ALEXIS MIRANDA, UMICAO #### [facility] [address] [place] [address] Brilliandeer Looper: Juan F Dominguez MD Hemoglobin A1Con 12-22-2019 HbA1c (Bld) [Mass fraction] 120 mg/dL Normal [facility] Comment on above: Result Comment: The ADA and AACC recommend providing the estimated average glucose result to permit better patient understanding of their HBA1c result. Performed By: #### ALEXIS MIRANAD UMICAO #### [facility] [address] [place] [address] Brilliandeer Looper: Juan F Dominguez MD HbA1c (Bld) [Mass fraction] 5.8 % Normal 4.0-6.0 [facility] Comment on above: Performed By: #### ALEXIS MIRADNA UMICAO #### [place] [facility] [address] [place] [address] Brilliandeer Looper: Juan F Dominguez MD Lactic Acidon 12-22-2019 Lactate [Moles/Vol] 1.2 mmol/L Normal 0.7-2.1 [facility] Comment on above: Performed By: #### ALEXIS MIRANDA, UMICAO #### [facility] [address] [place] [address] Brilliandeer Looper: Juan F Dominguez MD Lipid Profileon 12-22-2019 Cholesterol [Mass/Vol] 137 mg/dL Normal <200 [facility] Comment on above: Result Comment: Cholesterol Guidelines: <200 Desirable 200-240 Borderline >240 Undesirable Performed By: #### ALEXIS MIRANDA, UMICAO #### [facility] [address] [place] [phone] Brilliandeer Looper: Juan F Dominguez MD Cholesterol in HDL [Mass/Vol] 53 mg/dL Normal >40 [facility] Comment on above: Result Comment: HDL Guidelines: <40 Undesirable 40-59 Borderline >59 Desirable Performed By: #### Artem SCHULZ UA, UMICAO #### [facility] [address] [place] [phone] Brilliandeer Looper: Juan F Dominguez MD Cholesterol in LDL [Mass/Vol] 73 mg/dL Normal 0-130 [facility] Comment on above: Result Comment: LDL Guidelines: <100 Desirable 100-129 Near to/above Desirable 130-159 Borderline >159 Undesirable Direct (measured) LDL and calculated LDL are not interchangeable tests. Performed By: #### ALEXIS MIRANDA, UMICAO #### [facility] [employer] [address] [place] [address] Brilliandeer Looper: Juan F Dominguez MD Cholesterol.total/Chol esterol in HDL [Mass ratio] 2.6 {ratio} Normal <5 [facility] Comment on above: Performed By: #### ALEXIS MIRANDA, UMICAO #### [facility] [address] [place] [address] Brilliandeer Looper: Juan F Dominguez MD Triglyceride [Mass/Vol] 57 mg/dL Normal <150 [facility] Comment on above: Result Comment: Triglyceride Guidelines: <150 Desirable 150-199 Borderline 200-499 High >499 Very high Based on AHA Guidelines for fasting triglyceride, June 2012. Performed By: #### Artem SCHULZ UA, UMICAO #### [facility] [address] [place] [address] Brilliandeer Looper: Juan F Dominguez MD Urinalysis, Routineon 2019 Acetoacetic Acid,Ur TRACE Abnormal NEG [facility] Comment on above: Performed By: #### Artem SCHULZ UA, UMICAO #### [facility] [address] [place] [address] Brilliandeer Looper: Juan F Dominguez MD Bilirubin, SemiQt,Ur Negative Normal NEG [facility] Comment on above: Performed By: #### Artem AU, UA, UMICAO #### [facility] [address] [place] [address] Brilliandeer Looper: Juan F Dominguez MD Color (U) YELLOW Normal YEL [facility] Comment on above: Performed By: #### Artem AU, UA, UMICAO #### [facility] [address] [place] [address] Brilliandeer Looper: Juan F Dominguez MD Glucose Ql (U) Negative Normal NEG [facility] Comment on above: Performed By: #### Artem AU, UA, UMICAO #### [facility] [address] [place] [address] Brilliandeer Looper: Juan F Dominguez MD Hemoglobin, Ur Negative Normal NEG [facility] Comment on above: Performed By: #### Artem SCHULZ UA, UMICAO #### [facility] [employer] [address] [place] [address] Brilliandeer Looper: Juan F Dominguez MD Leukocyte esterase Test strip Ql (U) Negative Normal NEG [facility] Comment on above: Performed By: #### Artem AU, UA, UMICAO #### [facility] [employer] [address] [place] [address] Brilliandeer Looper: Juan F Dominguez MD Nitrite,Ur Negative Normal NEG [facility] Comment on above: Performed By: #### Artem AU, UA, UMICAO #### [facility] [employer] [address] [place] [address] Brilliandeer Looper: Juan F Dominguez MD pH (U) 5.0 [pH] Normal 5.0-8.0 [facility] Comment on above: Performed By: #### Artem AU, UA, UMICAO #### [facility] [employer] [address] [place] [address] [place] [address] Brilliandeer Looper: Juan F Dominguez MD Protein Ql (U) 1+ Abnormal NEG [facility] Comment on above: Performed By: #### Artem SCHULZ UA, UMICAO #### [address] [address] Brilliandeer Looper: Juan F Dominguez MD Specific gravity (U) [Rel density] 1.025 Normal 1.005-1.03 0 [facility] Comment on above: Performed By: #### Artem SCHULZ UA, UMICAO #### [address] [address] Brilliandeer Looper: Juan F Dominguez MD Turbidity CLEAR Normal CLEAR [facility] Comment on above: Performed By: #### Artem SCHULZ UA, UMICAO #### [address] [address] Brilliandeer Looper: Juan F Dominguez MD Urobilinogen,Ur Normal Normal NORM [facility] Comment on above: Performed By: #### Artem SCHULZ UA, UMICAO #### [address] [address] Brilliandeer Looper: Juan F Dominguez MD Urinalysis,Microon 0 ----- Normal [facility] Comment on above: Performed By: #### Artem SCHULZ UA, UMICAO #### [address] [address] Brilliandeer Looper: Juan F Dominguez MD Casts LM.LPF (Urine sed) [#/Area] 2 TO 5 HYALINE Normal 0-8 [facility] Comment on above: Result Comment: Refe rence range defined for non-centrifuged specimen. Performed By: #### Artem SCHULZ UA, UMICAO #### [address] [address] Brilliandeer Looper: Juan F Dominguez MD Epithelial cells LM.HPF (Urine sed) [#/Area] 0 TO 2 Normal 0-5 [facility] Comment on above: Performed By: #### ALEXIS MIRANDA, UMICAO #### [address] [address] Brilliandeer Looper: Juan F Dominguez MD RBC (U) [#/Vol] 0 TO 2 Normal 0-4 [facility] Comment on above: Result Comment: Refe rence range defined for non-centrifuged specimen. Performed By: #### ALEXIS MIRANDA, UMICAO #### [address] [address] Brilliandeer Looper: Juan F Dominguez MD WBC (U) [#/Vol] 2 TO 5 Normal 0-5 [facility] Comment on above: Performed By: #### ALEXIS MIRANDA, UMICAO #### [facility] [employer] [address] [place] [address] Brilliandeer Looper: Juan F Dominguez MD CBC with Diffon 12-21-2019 Abs. Basophil <0.03 Normal 0.00-0.20 [facility] Comment on above: Performed By: #### C MPX, GLYHGB, LIPR, LACTIC, CDP #### [facility] [employer] [address] [place] [address] Brilliandeer Looper: Juan F Dominguez MD Abs.Imm.Granulocyte <0.03 Normal 0.00-0.30 [facility] Comment on above: Performed By: #### C MPX, GLYHGB, LIPR, LACTIC, CDP #### [facility] [employer] [address] [place] [address] Brilliandeer Looper: Juan F Dominguez MD Abs.Neutrophil (Seg) 2.41 k/uL Normal 1.50-8.10 [facility] Comment on above: Performed By: #### C MPX, GLYHGB, LIPR, LACTIC, CDP #### [address] [address] Brilliandeer Looper: Juan F Dominguez MD Auto Diff Performed NOT REPORTED Normal [facility] Comment on above: Performed By: #### C MPX, GLYHGB, LIPR, LACTIC, CDP #### [address] [address] Brilliandeer Looper: Juan F Dominguez MD Basophils/100 WBC (Bld) 0 % Normal 0-2 [facility] Comment on above: Performed By: #### C MPX, GLYHGB, LIPR, LACTIC, CDP #### [address] [address] Brilliandeer Looper: Juan F Dominguez MD Eosinophils (Bld) [#/Vol] 0.08 10*3/uL Normal 0.00-0.44 [facility] Comment on above: Performed By: #### C MPX, GLYHGB, LIPR, LACTIC, CDP #### [address] [address] Brilliandeer Looper: Juan F Dominguez MD Eosinophils/100 WBC (Bld) 2 % Normal 1-4 [facility] Comment on above: Performed By: #### C MPX, GLYHGB, LIPR, LACTIC, CDP #### [address] [address] Brilliandeer Looper: Juan F Dominguez MD Erythrocyte distribution width (RBC) [Ratio] 11.9 % Normal 11.8-14.4 [facility] Comment on above: Performed By: #### C MPX, GLYHGB, LIPR, LACTIC, CDP #### [address] [address] Brilliandeer Looper: Juan F Dominguez MD Hematocrit (Bld) [Volume fraction] 38.8 % Low 40.7-50.3 [facility] Comment on above: Performed By: #### C MPX, GLYHGB, LIPR, LACTIC, CDP #### [address] [address] Brilliandeer Looper: Juan F Dominguez MD Hemoglobin (Bld) [Mass/Vol] 13.6 g/dL Normal 13.0-17.0 [facility] Comment on above: Performed By: #### C MPX, GLYHGB, LIPR, LACTIC, CDP #### [address] [address] Brilliandeer Looper: Juan F Dominguez MD Immature granulocytes (Bld) [#/Vol] 0 % Normal 0 [facility] Comment on above: Performed By: #### C MPX, GLYHGB, LIPR, LACTIC, CDP #### [address] [address] Brilliandeer Looper: Juan F Dominguez MD Lymphocytes (Bld) [#/Vol] 1.11 10*3/uL Normal 1.10-3.70 [facility] Comment on above: Performed By: #### C MPX, GLYHGB, LIPR, LACTIC, CDP #### [address] [address] Brilliandeer Looper: Juan F Dominguez MD Lymphocytes/100 WBC (Bld) 28 % Normal 24-43 [facility] Comment on above: Performed By: #### C MPX, GLYHGB, LIPR, LACTIC, CDP #### [address] [address] Brilliandeer Looper: Juan F Dominguez MD MCH (RBC) [Entitic mass] 35.8 pg High 25.2-33.5 [facility] Comment on above: Performed By: #### C MPX, GLYHGB, LIPR, LACTIC, CDP #### [address] [address] Brilliandeer Looper: Juan F Dominguez MD MCHC (RBC) [Mass/Vol] 35.1 g/dL High 28.4-34.8 [facility] Comment on above: Performed By: #### C MPX, GLYHGB, LIPR, LACTIC, CDP #### [address] [address] Brilliandeer Looper: Juan F Dominguez MD MCV (RBC) [Entitic vol] 102.1 fL Normal 82.6-102.9 [facility] Comment on above: Performed By: #### C MPX, GLYHGB, LIPR, LACTIC, CDP #### [address] [address] Brilliandeer Looper: Juan F Dominguez MD Monocytes (Bld) [#/Vol] 0.41 10*3/uL Normal 0.10-1.20 [facility] Comment on above: Performed By: #### C MPX, GLYHGB, LIPR, LACTIC, CDP #### [address] [address] Brilliandeer Looper: Juan F Dominguez MD Monocytes/100 WBC (Bld) 10 % Normal 3-12 [facility] Comment on above: Performed By: #### C MPX, GLYHGB, LIPR, LACTIC, CDP #### [address] [address] Brilliandeer Looper: Juan F Dominguez MD Neutrophil (Seg) 60 % Normal 36-65 [facility] Comment on above: Performed By: #### C MPX, GLYHGB, LIPR, LACTIC, CDP #### [address] [address] Brilliandeer Looper: Juan F Dominguez MD NRBC Automated 0.0 per 100 WBC Normal 0.0 [facility] Comment on above: Performed By: #### C MPX, GLYHGB, LIPR, LACTIC, CDP #### [address] [address] Brilliandeer Looper: Juan F Dominguez MD Platelet mean volume (Bld) [Entitic vol] 8.2 fL Normal 8.1-13.5 [facility] Comment on above: Performed By: #### C MPX, GLYHGB, LIPR, LACTIC, CDP #### [address] [address] Brilliandeer Looper: Juan F Dominguez MD Platelets (Bld) [#/Vol] NOT REPORTED Normal [facility] Comment on above: Performed By: #### C MPX, GLYHGB, LIPR, LACTIC, CDP #### [address] [address] Brilliandeer Looper: Juan F Dominguez MD Platelets (Bld) [#/Vol] 200 10*3/uL Normal 138-453 [facility] Comment on above: Performed By: #### C MPX, GLYHGB, LIPR, LACTIC, CDP #### [address] [address] Brilliandeer Looper: Juan F Dominguez MD RBC (Bld) [#/Vol] 3.80 10*6/uL Low 4.21-5.77 [facility] Comment on above: Performed By: #### C MPX, GLYHGB, LIPR, LACTIC, CDP #### [address] [address] Brilliandeer Looper: Juan F Dominguez MD RBC morphology finding Nom (Bld) NOT REPORTED Normal [facility] Comment on above: Performed By: #### C MPX, GLYHGB, LIPR, LACTIC, CDP #### [address] [address] Brilliandeer Looper: Juan F Dominguez MD WBC (Bld) [#/Vol] 4.0 10*3/uL Normal 3.5-11.3 [facility] Comment on above: Performed By: #### C MPX, GLYHGB, LIPR, LACTIC, CDP #### [facility] [employer] [facility] [place] [address] Brilliandeer Looper: Juan F Dominguez MD WBC Morphology NOT REPORTED Normal [facility] Comment on above: Performed By: #### C MPX, GLYHGB, LIPR, LACTIC, CDP #### [facility] [employer] [address] [place] [address] Brilliandeer Looper: Juan F Dominguez MD Comp Metabolic Pr/rfx MGon 0 12-21-2019 (cont.) Normal [facility] Comment on above: Result Comment: Aver age GFR for 70 or more years old: 75 mL/min/1.73sq m Chronic Kidney Disease: <60 mL/min/1.73sq m Kidney failure: <15 mL/min/1.73sq m eGFR calculated using average adult body mass. Additional eGFR calculator available at: http://www.RETC/multiple_crcl_2011.htm Performed By: #### C MPX, GLYHGB, LIPR, LACTIC, CDP #### [facility] [employer] [address] [place] [address] Brilliandeer Looper: Juan F Dominguez MD Albumin [Mass/Vol] 3.9 g/dL Normal 3.5-5.2 [facility] Comment on above: Performed By: #### C MPX, GLYHGB, LIPR, LACTIC, CDP #### [facility] [employer] [address] [place] [address] Brilliandeer Looper: Juan F Dominguez MD Albumin/Globulin [Mass ratio] 1.2 {ratio} Normal 1.0-2.5 [facility] Comment on above: Performed By: #### C MPX, GLYHGB, LIPR, LACTIC, CDP #### [facility] [employer] [address] [place] [address] Brilliandeer Looper: Juan F Dominguez MD Alkaline Phos 80 U/L Normal 40-129 [facility] Comment on above: Performed By: #### C MPX, GLYHGB, LIPR, LACTIC, CDP #### [address] [address] Brilliandeer Looper: Juan F Dominguez MD ALT [Catalytic activity/Vol] 22 U/L Normal 5-41 [facility] Comment on above: Performed By: #### C MPX, GLYHGB, LIPR, LACTIC, CDP #### [address] [address] Brilliandeer Looper: Juan F Dominguez MD Anion gap [Moles/Vol] 15 mmol/L Normal 9-17 [facility] Comment on above: Performed By: #### C MPX, GLYHGB, LIPR, LACTIC, CDP #### [address] [address] Brilliandeer Looper: Juan F Dominguez MD Bilirubin Ql (U) 0.74 mg/dL Normal 0.3-1.2 [facility] Comment on above: Performed By: #### C MPX, GLYHGB, LIPR, LACTIC, CDP #### [address] [address] Brilliandeer Looper: Juan F Dominguez MD BUN/CRE Ratio NOT REPORTED Normal 9-20 [facility] Comment on above: Performed By: #### C MPX, GLYHGB, LIPR, LACTIC, CDP #### [facility] [employer] [address] [place] [address] Brilliandeer Looper: Juan F Dominguez MD Calcium [Mass/Vol] 9.5 mg/dL Normal 8.6-10.4 [facility] Comment on above: Performed By: #### C MPX, GLYHGB, LIPR, LACTIC, CDP #### [facility] [employer] [address] [place] [address] Brilliandeer Looper: Juan F Dominguez MD Chloride [Moles/Vol] 99 mmol/L Normal 98-107 [facility] Comment on above: Performed By: #### C MPX, GLYHGB, LIPR, LACTIC, CDP #### [address] [address] Brilliandeer Looper: Juan F Dominguez MD CO2 [Moles/Vol] 20 mmol/L Normal 20-31 [facility] Comment on above: Performed By: #### C MPX, GLYHGB, LIPR, LACTIC, CDP #### [address] [address] Brilliandeer Looper: Juan F Dominguez MD Creatinine [Mass/Vol] 0.77 mg/dL Normal 0.70-1.20 [facility] Comment on above: Performed By: #### C MPX, GLYHGB, LIPR, LACTIC, CDP #### [address] [address] Brilliandeer Looper: Juan F Dominguez MD GFR, Amer >60 Normal >60 [facility] Comment on above: Performed By: #### C MPX, GLYHGB, LIPR, LACTIC, CDP #### [address] [address] Brilliandeer Looper: Juan F Dominguez MD GFR,non Amer >60 Normal >60 [facility] Comment on above: Performed By: #### C MPX, GLYHGB, LIPR, LACTIC, CDP #### [address] [address] Brilliandeer Looper: Juan F Dominguez MD Glucose [Mass/Vol] 86 mg/dL Normal 70-99 [facility] Comment on above: Performed By: #### C MPX, GLYHGB, LIPR, LACTIC, CDP #### [address] [address] Brilliandeer Looper: Juan F Dominguez MD Potassium [Moles/Vol] 4.2 mmol/L Normal 3.7-5.3 [facility] Comment on above: Performed By: #### C MPX, GLYHGB, LIPR, LACTIC, CDP #### [address] [address] Brilliandeer Looper: Juan F Dominguez MD Protein [Mass/Vol] 7.2 g/dL Normal 6.4-8.3 [facility] Comment on above: Performed By: #### C MPX, GLYHGB, LIPR, LACTIC, CDP #### [facility] [address] [place] [address] Brilliandeer Looper: Juan F Dominguez MD Sodium [Moles/Vol] 134 mmol/L Low 135-144 [facility] Comment on above: Performed By: #### C MPX, GLYHGB, LIPR, LACTIC, CDP #### [address] [address] Brilliandeer Looper: Juan F Dominguez MD Staging: NOT REPORTED Normal [facility] Comment on above: Performed By: #### C MPX, GLYHGB, LIPR, LACTIC, CDP #### [address] [address] Brilliandeer Looper: Juan F Dominguez MD Urea nitrogen [Mass/Vol] 16 mg/dL Normal 8-23 [facility] Comment on above: Performed By: #### C MPX, GLYHGB, LIPR, LACTIC, CDP #### [address] [address] Brilliandeer Looper: Juan F Dominguez MD Drug Scr, Abuse, Uron 2019 Buprenorphrine, Ur NOT REPORTED Normal NEG [facility] Comment on above: Performed By: #### D AU, UA, UMICAO #### [address] [address] Brilliandeer Looper: Juan F Dominguez MD MDMA, Urine NOT REPORTED Normal NEG [facility] Comment on above: Performed By: #### D AU, UA, UMICAO #### [facility] [address] [place] [address] Brilliandeer Looper: Juan F Dominguez MD Methamphetamine, Ur NOT REPORTED Normal NEG [facility] Comment on above: Performed By: #### D AU, UA, UMICAO #### [facility] [address] [place] [address] Brilliandeer Looper: Juan F Dominguez MD Propoxyphene,Urine NOT REPORTED Normal NEG [facility] Comment on above: Performed By: #### D ZEUS, UA, UMICAO #### [facility] [address] [place] [address] Brilliandeer Looper: Juan F Dominguez MD Tricyclic antidepressants Screen Ql (U) NOT REPORTED Normal NEG [facility] Comment on above: Performed By: #### D AU, UA, UMICAO #### [facility] [address] [place] [address] Brilliandeer Looper: Juan F Dominguez MD Lactic Acidon 12-21-2019 Lactate [Moles/Vol] NOT REPORTED Normal [facility] Comment on above: Performed By: #### D AU, UA, UMICAO #### [facility] [address] [place] [address] Brilliandeer Looper: Juan F Dominguez MD Lipid Profileon 12-21-2019 Cholesterol in VLDL [Mass/Vol] NOT REPORTED Normal 10-23 [facility] Comment on above: Performed By: #### D AU, UA, UMICAO #### [facility] [address] [place] [address] Brilliandeer Looper: Juan F Dominguez MD Urinalysis, Routineon 2019 Comment NOT REPORTED Normal [facility] Comment on above: Performed By: #### D AU, UA, UMICAO #### [facility] [address] [place] [address] Brilliandeer Looper: Juan F Dominguez MD Urinalysis,Microon 0 Amorphous sediment LM Ql (Urine sed) NOT REPORTED Normal [facility] Comment on above: Performed By: #### D AU, UA, UMICAO #### [facility] [address] [place] [address] Brilliandeer Looper: Juan F Dominguez MD Bacteria LM.HPF (Urine sed) [#/Area] NOT REPORTED Normal [facility] Comment on above: Performed By: #### D AU, UA, UMICAO #### [facility] [address] [place] [address] Brilliandeer Looper: Juan F Dominguez MD Crystals LM Nom (Urine sed) NOT REPORTED Normal [facility] Comment on above: Performed By: #### Artem AU UA, UMICAO #### [facility] [address] [place] [address] Brilliandeer Looper: Juan F Dominguez MD Epithelial, Renal NOT REPORTED Normal 0 [facility] Comment on above: Performed By: #### Artem AU UA, UMICAO #### [facility] [address] [place] [address] Brilliandeer Looper: Juan F Dominguez MD Mucus Strands NOT REPORTED Normal [facility] Comment on above: Performed By: #### D AU, UA, UMICAO #### [facility] [address] [place] [address] Brilliandeer Looper: Juan F Dominguez MD Other Observations NOT REPORTED Normal NREQ [facility] Comment on above: Performed By: #### D AU, UA, UMICAO #### [facility] [address] [place] [address] Brilliandeer Looper: Juan F Dominguez MD Trichomonas NOT REPORTED Normal NONE [facility] Comment on above: Performed By: #### D AU, UA, UMICAO #### [facility] [address] [place] [address] Brilliandeer Looper: Juan F Dominguez MD Yeast LM Ql (Urine sed) NOT REPORTED Normal NONE [facility] Comment on above: Performed By: #### D AU, UA, UMICAO #### [facility] [address] [place], [place] [phone] Brilliandeer Looper: Juan F Dominguez MD Social History Date Type Detail Facility Start: 08-13-2023 End: 10-22-2023 Alcohol intake Lifetime non-drinker (finding) [facility] Work Phone: Start: 06-15-2022 End: 08-22-2023 Occasional caffeine consumption Occasional caffeine consumption [facility] Comment on above: Quit ; Tea; Start: 06-15-2022 End: 08-22-2023 Sex Assigned At Male [facility] Start: 08-22-2023 Alcohol intake Ex-drinker (finding) [facility] Work Phone: Start: 08-12-2023 End: 12-28-2023 Exposure to SARS-CoV-2 (event) Not sure [facility] Start: 08-29-2021 End: 12-03-2023 Tobacco smoking status Never smoked tobacco (finding) [facility] Start: 10-13-2020 End: 10-22-2023 Tobacco use and exposure Never used [employer] Start: 02-04-2020 End: 03-05-2024 Tobacco smoking status NHIS Former smoker [facility] Start: 1945 Sex Assigned At Not on file M [employer] Start: 1945 Sex Assigned At Male [facility] Tobacco smoking status Never [facility] End: 09-24-1959 History of tobacco use Current smoker [facility] Work Phone: End: 09-24-1959 History of tobacco use Cigarette Smoker [facility] Work Phone: Vital Signs Date Time Vital Sign Value Performing Clinician Facility 03-20-2024 09:23-0400 Body weight 74.7 kg DO Sam Cooney Work Phone: [facility] 03-20-2024 08:23-0400 Body temperature 98 [degF] DO Sam [place] Work Phone: [facility] 03-20-2024 08:23-0400 Diastolic blood pressure 72 mm[Hg] DO Sam [place] Work Phone: [facility] 03-20-2024 08:23-0400 Heart rate 86 /min DO Sam [place] Work Phone: [facility] 03-20-2024 08:23-0400 Respiratory rate 20 /min DO Sam [place] Work Phone: [facility] 03-20-2024 08:23-0400 SaO2% (BldA) [Mass fraction] 97 % DO Sam [place] Work Phone: [facility] 03-20-2024 08:23-0400 Systolic blood pressure 121 mm[Hg] DO Sam [place] Work Phone: [facility] 03-14-2024 08:53-0400 Body temperature 98.2 [degF] DO Sam [place] Work Phone: [facility] 03-14-2024 08:53-0400 Body weight 71.07 kg DO Sam [place] Work Phone: [facility] 03-14-2024 08:53-0400 Diastolic blood pressure 48 mm[Hg] DO [place] Work Phone: [facility] 03-14-2024 08:53-0400 Heart rate 78 /min DO Sam [place] Work Phone: [facility] 03-14-2024 08:53-0400 Respiratory rate 18 /min DO Sam [place] Work Phone: [facility] 03-14-2024 08:53-0400 SaO2% (BldA) [Mass fraction] 95 % DO Sam [place] Work Phone: [facility] 03-14-2024 08:53-0400 Systolic blood pressure 84 mm[Hg] DO Lafayette Willimantic Work Phone: [facility] 03-09-2024 15:11-0400 Body temperature 97.9 [degF] DO [place] Work Phone: [facility] 03-09-2024 15:11-0400 Diastolic blood pressure 74 mm[Hg] DO [place] Work Phone: [facility] 03-09-2024 15:11-0400 Heart rate 65 /min DO Sam Willimantic Work Phone: [facility] 03-09-2024 15:11-0400 Respiratory rate 16 /min DO Sam Willimantic Work Phone: [facility] 03-09-2024 15:11-0400 SaO2% (BldA) [Mass fraction] 97 % DO [place] Will[place] Work Phone: [facility] 03-09-2024 15:11-0400 Systolic blood pressure 135 mm[Hg] DO Sam Willimantic Work Phone: [facility] 03-09-2024 06:00-0400 Body weight 77.1 kg DO Lafayette Will[place] Work Phone: [facility] 03-07-2024 09:29-0400 Body height 175.26 cm DO [place] Will[place] Work Phone: [facility] 03-05-2024 19:10-0400 Body temperature 97.4 [degF] DO [place] Will[place] Work Phone: [facility] 03-05-2024 19:10-0400 Diastolic blood pressure 63 mm[Hg] DO [place] Work Phone: [facility] 03-05-2024 19:10-0400 Heart rate 75 /min DO [place] Will[place] Work Phone: [facility] 03-05-2024 19:10-0400 Respiratory rate 21 /min DO Sam Willim[place] Work Phone: [facility] 03-05-2024 19:10-0400 SaO2% (BldA) [Mass fraction] 98 % DO [place] Work Phone: [facility] 03-05-2024 19:10-0400 Systolic blood pressure 135 mm[Hg] DO Sam Willim[place] Work Phone: [facility] 03-05-2024 18:45-0400 Body height 175.26 cm DO Sam Willim[place] Work Phone: [facility] 03-05-2024 18:45-0400 Body weight 76.2 kg DO [place] Will[place] Work Phone: [facility] 03-05-2024 11:31-0400 Diastolic blood pressure 66 mm[Hg] DO Sam Willim[place] Work Phone: [facility] 03-05-2024 11:31-0400 Systolic blood pressure 82 mm[Hg] DO [place] Work Phone: [facility] 03-05-2024 11:30-0400 Heart rate 74 /min DO Sam Will[place] Work Phone: [facility] 03-05-2024 11:30-0400 Respiratory rate 18 /min DO [place] Work Phone: [facility] 03-05-2024 11:30-0400 SaO2% (BldA) [Mass fraction] 98 % DO [place] Will[place] Work Phone: [facility] 03-03-2024 13:45-0400 Body weight 78.01 kg DO [place] Work Phone: [facility] 03-03-2024 13:45-0400 Diastolic blood pressure 63 mm[Hg] DO Sam Willim[place] Work Phone: [facility] 03-03-2024 13:45-0400 Heart rate 71 /min DO Sam [place] Work Phone: [facility] 03-03-2024 13:45-0400 Respiratory rate 16 /min DO Sam Willim[place] Work Phone: [facility] 03-03-2024 13:45-0400 SaO2% (BldA) [Mass fraction] 99 % DO Sam Willim[place] Work Phone: [facility] 03-03-2024 13:45-0400 Systolic blood pressure 112 mm[Hg] DO Sam Willim[place] Work Phone: [facility] 02-21-2024 14:59-0400 Body height 175.26 cm DO Sam Willim[place] Work Phone: [facility] 02-21-2024 14:59-0400 Body mass index (BMI) [Ratio] 25.4 kg/m2 DO Sam Willim[place] Work Phone: [facility] 02-21-2024 14:59-0400 Body temperature 97.7 [degF] DO Sam Willim[place] Work Phone: [facility] 02-21-2024 14:59-0400 Body weight 78.01 kg DO Sam Willim[place] Work Phone: [facility] 02-21-2024 14:59-0400 Diastolic blood pressure 58 mm[Hg] DO [place] Work Phone: [facility] 02-21-2024 14:59-0400 Heart rate 74 /min DO Sam [place]im[place] Work Phone: [facility] 02-21-2024 14:59-0400 Respiratory rate 202 /min DO Sam Willim[place] Work Phone: [facility] 02-21-2024 14:59-0400 SaO2% (BldA) [Mass fraction] 100 % DO Sam Willim[place] Work Phone: [facility] 02-21-2024 14:59-0400 Systolic blood pressure 93 mm[Hg] DO Sam Cooney Work Phone: [facility] 12-03-2023 15:25-0400 Blood Pressure Location Trung FERGUSON [facility] 12-03-2023 15:25-0400 Diastolic blood pressure 74 mm[Hg] Trung FERGUSON [facility] 12-03-2023 15:25-0400 Heart rate 76 /min Trung FERGUSON [facility] 12-03-2023 15:25-0400 Respiratory rate 16 /min Trung FERGUSON [facility] 12-03-2023 15:25-0400 Systolic blood pressure 137 mm[Hg] Trung FERGUSON [facility] 10-22-2023 11:54-0500 Body height 175.3 cm Za Hernández MD Work Phone: [facility] 10-22-2023 11:54-0500 Body mass index (BMI) [Ratio] 27.17 kg/m2 Za Hernández MD Work Phone: [facility] 10-22-2023 11:54-0500 Body weight 83.46 kg Za Hernández MD Work Phone: [facility] 10-22-2023 11:54-0500 Diastolic blood pressure 72 mm[Hg] Za Hernández MD Work Phone: [facility] 10-22-2023 11:54-0500 Heart rate 56 /min Za Hernández MD Work Phone: [facility] 10-22-2023 11:54-0500 Systolic blood pressure 124 mm[Hg] Za Hernández MD Work Phone: [facility] 08-28-2023 12:20-0500 Diastolic blood pressure 78 mm[Hg] Ryan Cobb MD Work Phone: [facility] 08-28-2023 12:20-0500 Heart rate 60 /min Ryan Cobb MD Work Phone: [facility] 08-28-2023 12:20-0500 Respiratory rate 14 /min Ryan Cobb MD Work Phone: [facility] 08-28-2023 12:20-0500 SaO2% (BldA) [Mass fraction] 98 % Ryan Cobb MD Work Phone: [facility] 08-28-2023 12:20-0500 Systolic blood pressure 137 mm[Hg] Ryan Cobb MD Work Phone: [facility] 08-22-2023 08:48-0500 Body height 175.3 cm Ryan Cobb MD Work Phone: [facility] 08-22-2023 08:48-0500 Body mass index (BMI) [Ratio] 25.84 kg/m2 Ryan Cobb MD Work Phone: [facility] 08-22-2023 08:48-0500 Body temperature 96.01 [degF] Ryan Cobb MD Work Phone: [facility] 08-22-2023 08:48-0500 Body weight 79.38 kg Ryan Cobb MD Work Phone: [facility] 08-22-2023 08:48-0500 Diastolic blood pressure 79 mm[Hg] Ryan Cobb MD Work Phone: [facility] 08-22-2023 08:48-0500 Heart rate 60 /min Ryan Cobb MD Work Phone: [facility] 08-22-2023 08:48-0500 Respiratory rate 16 /min Ryan Cobb MD Work Phone: [facility] 08-22-2023 08:48-0500 SaO2% (BldA) [Mass fraction] 96 % Ryan Cobb MD Work Phone: [facility] 08-22-2023 08:48-0500 Systolic blood pressure 151 mm[Hg] Ryan Cobb MD Work Phone: [facility] 07-09-2023 11:04-0400 Diastolic blood pressure 78 mm[Hg] Trung FERGUSON [facility] 07-09-2023 11:04-0400 Heart rate 68 /min Trung FERGUSON [facility] 07-09-2023 11:04-0400 Respiratory rate 16 /min Trung FERGUSON [facility] 07-09-2023 11:04-0400 Systolic blood pressure 132 mm[Hg] Trung FERGUSON [facility] 06-11-2023 11:27-0400 Diastolic blood pressure 60 mm[Hg] Sam Cooney Work Phone: [facility] DO Work Phone: 06-11-2023 11:27-0400 Systolic blood pressure 118 mm[Hg] Sam Cooney Work Phone: [facility] DO Work Phone: 06-11-2023 10:51-0400 Body height 175.26 cm Sam Cooney Work Phone: [facility] DO Work Phone: 06-11-2023 10:51-0400 Body mass index (BMI) [Ratio] 26.29 kg/m2 Sam Meneses [place] Work Phone: [facility] DO Work Phone: 06-11-2023 10:51-0400 Body surface area Derived from formula 1.97 m2 Lafayette Gideon [place] Work Phone: [facility] DO Work Phone: 06-11-2023 10:51-0400 Body weight 80.74 kg Sam Gideon Cooney Work Phone: [facility] DO Work Phone: 06-11-2023 10:51-0400 Diastolic blood pressure 76 mm[Hg] Sam Meneses [place] Work Phone: [facility] DO Work Phone: 06-11-2023 10:51-0400 Heart rate 66 /min Sam Gideon [place] Work Phone: [facility] DO Work Phone: 06-11-2023 10:51-0400 Systolic blood pressure 128 mm[Hg] Sam Meneses [place] Work Phone: [facility] DO Work Phone: 04-03-2023 09:05-0400 Blood Pressure Location CHARLOTTE BAKER [facility] 04-03-2023 09:05-0400 Diastolic blood pressure 56 mm[Hg] CHARLOTTE BAKER [facility] 04-03-2023 09:05-0400 Heart rate 58 /min CHARLOTTE BAKER [facility] 04-03-2023 09:05-0400 Respiratory rate 16 /min CHARLOTTE BAKER [facility] 04-03-2023 09:05-0400 Systolic blood pressure 96 mm[Hg] CHARLOTTE BAKER [facility] 02-26-2023 12:14-0400 Diastolic blood pressure 40 mm[Hg] Sam Cooney Work Phone: [facility] DO Work Phone: 02-26-2023 12:14-0400 Systolic blood pressure 82 mm[Hg] Sam Cooney Work Phone: [facility] DO Work Phone: 02-26-2023 12:14-0400 50 1 Sam Cooney Work Phone: [facility] DO Work Phone: Comment on above: [id number] 02-26-2023 11:37-0400 Body height 175.26 cm Sam Cooney Work Phone: [facility] DO Work Phone: 02-26-2023 11:37-0400 Body mass index (BMI) [Ratio] 25.93 kg/m2 Sam Cooney Work Phone: [facility] DO Work Phone: 02-26-2023 11:37-0400 Body surface area Derived from formula 1.95 m2 Sam Cooney Work Phone: [facility] DO Work Phone: 02-26-2023 11:37-0400 Body weight 79.65 kg Sam Cooney Work Phone: [facility] DO Work Phone: 02-26-2023 11:37-0400 Diastolic blood pressure 52 mm[Hg] Lafayette Gideon [place] Work Phone: [facility] DO Work Phone: 02-26-2023 11:37-0400 Heart rate 56 /min Lafayette E [place] Work Phone: [facility] DO Work Phone: 02-26-2023 11:37-0400 Systolic blood pressure 98 mm[Hg] Lafayette E [place] Work Phone: [facility] DO Work Phone: 01-23-2023 14:12-0400 Blood Pressure Location CHARLOTTE RITESH [facility] 01-23-2023 14:12-0400 Diastolic blood pressure 76 mm[Hg] CHARLOTTE RITESH [facility] 01-23-2023 14:12-0400 Heart rate 78 /min CHARLOTTE RITESH [facility] 01-23-2023 14:12-0400 Respiratory rate 16 /min CHARLOTTE RITESH [facility] 01-23-2023 14:12-0400 Systolic blood pressure 130 mm[Hg] CHARLOTTE RITESH [facility] 01-01-2023 11:45-0400 Blood Pressure Location Trung FERGUSON [facility] 01-01-2023 11:45-0400 Diastolic blood pressure 88 mm[Hg] Trung FERGUSON [facility] 01-01-2023 11:45-0400 Heart rate 67 /min Trung FERGUSON [facility] 01-01-2023 11:45-0400 Respiratory rate 16 /min Trung FERGUSON [facility] 01-01-2023 11:45-0400 Systolic blood pressure 135 mm[Hg] Trung FERGUSON [facility] 11-03-2022 13:02-0500 Blood Pressure Location Trung FERGUSON [facility] 11-03-2022 13:02-0500 Diastolic blood pressure 74 mm[Hg] Trung FERGUSON [facility] 11-03-2022 13:02-0500 Heart rate 68 /min Trung FERGUSON [facility] 11-03-2022 13:02-0500 Respiratory rate 16 /min Trung FERGUSON [facility] 11-03-2022 13:02-0500 Systolic blood pressure 128 mm[Hg] Trung FERGUSON [facility] 10-09-2022 13:22-0500 Diastolic blood pressure 74 mm[Hg] Sam Cooney Work Phone: [facility] DO Work Phone: 10-09-2022 13:22-0500 Systolic blood pressure 136 mm[Hg] Sam Cooney Work Phone: [facility] DO Work Phone: 10-09-2022 13:05-0500 Body height 175.26 cm Lafayette E [place] Work Phone: [facility] DO Work Phone: 10-09-2022 13:05-0500 Body mass index (BMI) [Ratio] 26.58 kg/m2 Sam Meneses [place] Work Phone: [facility] DO Work Phone: 10-09-2022 13:05-0500 Body surface area Derived from formula 1.98 m2 Sam Cooney Work Phone: [facility] DO Work Phone: 10-09-2022 13:05-0500 Body weight 81.65 kg Sam Cooney Work Phone: [facility] DO Work Phone: 10-09-2022 13:05-0500 Diastolic blood pressure 72 mm[Hg] Sam Cooney Work Phone: [facility] DO Work Phone: 10-09-2022 13:05-0500 Heart rate 84 /min Sam Cooney Work Phone: [facility] DO Work Phone: 10-09-2022 13:05-0500 Systolic blood pressure 142 mm[Hg] Sam Cooney Work Phone: [facility] DO Work Phone: 10-02-2022 15:48-0500 Body height 175.26 cm Sam Meneses [place] Work Phone: [facility] DO Work Phone: 10-02-2022 15:48-0500 Body mass index (BMI) [Ratio] 26.43 kg/m2 Sam Meneses [place] Work Phone: [facility] DO Work Phone: 10-02-2022 15:48-0500 Body surface area Derived from formula 1.97 m2 Sam Meneses [place] Work Phone: [facility] DO Work Phone: 10-02-2022 15:48-0500 Body weight 81.19 kg Sam Meneses [place] Work Phone: [facility] DO Work Phone: 10-02-2022 15:48-0500 Diastolic blood pressure 82 mm[Hg] Sam Meneses [place] Work Phone: [facility] DO Work Phone: 10-02-2022 15:48-0500 Heart rate 68 /min Sam Meneses [place] Work Phone: [facility] DO Work Phone: 10-02-2022 15:48-0500 Systolic blood pressure 134 mm[Hg] Sam Meneses [place] Work Phone: [facility] DO Work Phone: 10-02-2022 11:32-0500 Blood Pressure Location Trungemily FERGUSON [facility] 10-02-2022 11:32-0500 Diastolic blood pressure 75 mm[Hg] Trung FERGUSON [facility] 10-02-2022 11:32-0500 Heart rate 70 /min Trungemily FERGUSON [facility] 10-02-2022 11:32-0500 Respiratory rate 16 /min Trung FERGUSON [facility] 10-02-2022 11:32-0500 Systolic blood pressure 134 mm[Hg] Trung FERGUSON [facility] 09-11-2022 13:07-0500 Diastolic blood pressure 84 mm[Hg] Lafayette Gideon [place] Work Phone: [facility] DO Work Phone: 09-11-2022 13:07-0500 Diastolic blood pressure 92 mm[Hg] Lafayette Gideon [place] Work Phone: [facility] DO Work Phone: 09-11-2022 13:07-0500 Systolic blood pressure 144 mm[Hg] Lafayette Gideon [place] Work Phone: [facility] DO Work Phone: 09-11-2022 13:07-0500 Systolic blood pressure 148 mm[Hg] Lafayette Gideon [place] Work Phone: [facility] DO Work Phone: 09-11-2022 13:00-0500 Body height 175.26 cm Sam Meneses [place] Work Phone: [facility] DO Work Phone: 09-11-2022 13:00-0500 Body mass index (BMI) [Ratio] 25.99 kg/m2 Sam Meneses [place] Work Phone: [facility] DO Work Phone: 09-11-2022 13:00-0500 Body surface area Derived from formula 1.96 m2 Sam Meneses [place] Work Phone: [facility] DO Work Phone: 09-11-2022 13:00-0500 Body weight 79.83 kg Sam Meneses [place] Work Phone: [facility] DO Work Phone: 09-11-2022 13:00-0500 Heart rate 62 /min Sam Meneses [place] Work Phone: [facility] DO Work Phone: 08-28-2022 13:16-0500 Body height 175.26 cm Sam Meneses [place] Work Phone: [facility] DO Work Phone: 08-28-2022 13:16-0500 Body mass index (BMI) [Ratio] 25.84 kg/m2 Sam Meneses [place] Work Phone: [facility] DO Work Phone: 08-28-2022 13:16-0500 Body surface area Derived from formula 1.95 m2 Sam Cooney Work Phone: [facility] DO Work Phone: 08-28-2022 13:16-0500 Body weight 79.38 kg Sam Cooney Work Phone: [facility] DO Work Phone: 08-28-2022 13:16-0500 Diastolic blood pressure 94 mm[Hg] Sam Cooney Work Phone: [facility] DO Work Phone: 08-28-2022 13:16-0500 Heart rate 88 /min Sam Cooney Work Phone: [facility] DO Work Phone: 08-28-2022 13:16-0500 Systolic blood pressure 152 mm[Hg] Sam Meneses [place] Work Phone: [facility] DO Work Phone: 06-15-2022 10:12-0400 Body height 175.26 cm Sam Meneses [place] Work Phone: [facility] DO Work Phone: 06-15-2022 10:12-0400 Body mass index (BMI) [Ratio] 24.81 kg/m2 Sam Cooney Work Phone: [facility] DO Work Phone: 06-15-2022 10:12-0400 Body surface area Derived from formula 1.92 m2 Sam Cooney Work Phone: [facility] DO Work Phone: 06-15-2022 10:12-0400 Body weight 76.2 kg Sam Cooney Work Phone: [facility] DO Work Phone: 06-15-2022 10:12-0400 Diastolic blood pressure 82 mm[Hg] Sam Cooney Work Phone: [facility] DO Work Phone: 06-15-2022 10:12-0400 Heart rate 64 /min Sam Cooney Work Phone: [facility] DO Work Phone: 06-15-2022 10:12-0400 Systolic blood pressure 160 mm[Hg] Sam Cooney Work Phone: [facility] DO Work Phone: 06-15-2022 10:12-0400 4 1 Sam Cooney Work Phone: [facility] DO Work Phone: Comment on above: [id number] TS 04-24-2022 11:18-0400 Blood Pressure Location Trung FERGUSON [facility] 04-24-2022 11:18-0400 Diastolic blood pressure 86 mm[Hg] Trung FERGUSON [facility] 04-24-2022 11:18-0400 Heart rate 74 /min Trung FERGUSON [facility] 04-24-2022 11:18-0400 Respiratory rate 16 /min Trung FERGUSON [facility] 04-24-2022 11:18-0400 Systolic blood pressure 134 mm[Hg] Trung FERGUSON [facility] 01-23-2022 12:57-0400 Blood Pressure Location Trung FERGUSON [facility] 01-23-2022 12:57-0400 Diastolic blood pressure 87 mm[Hg] Trung FERGUSON [facility] 01-23-2022 12:57-0400 Heart rate 70 /min Trung FERGUSON [facility] 01-23-2022 12:57-0400 Respiratory rate 16 /min Trung FERGUSON [facility] 01-23-2022 12:57-0400 Systolic blood pressure 139 mm[Hg] Trung FERGUSON [facility] 08-31-2021 13:24-0500 Body height 175.26 cm Sam Cooney Work Phone: [facility] DO Work Phone: 08-31-2021 13:24-0500 Body mass index (BMI) [Ratio] 27.02 kg/m2 Sam Meneses [place] Work Phone: [facility] DO Work Phone: 08-31-2021 13:24-0500 Body surface area Derived from formula 1.99 m2 Sam Gideon [place] Work Phone: [facility] DO Work Phone: 08-31-2021 13:24-0500 Body weight 83.01 kg Lafayette Gideon Cooney Work Phone: [facility] DO Work Phone: 08-31-2021 13:24-0500 Diastolic blood pressure 88 mm[Hg] Sam Gideon [place] Work Phone: [facility] DO Work Phone: 08-31-2021 13:24-0500 Heart rate 74 /min Sam Meneses [place] Work Phone: [facility] DO Work Phone: 08-31-2021 13:24-0500 Systolic blood pressure 142 mm[Hg] Sam Gideon [place] Work Phone: [facility] DO Work Phone: 08-03-2021 09:57-0500 Body height 175.26 cm Sam Meneses [place] Work Phone: [facility] DO Work Phone: 08-03-2021 09:57-0500 Body mass index (BMI) [Ratio] 26.29 kg/m2 Lafayette Gideon [place] Work Phone: [facility] DO Work Phone: 08-03-2021 09:57-0500 Body surface area Derived from formula 1.97 m2 Sam Meneses [place] Work Phone: [facility] DO Work Phone: 08-03-2021 09:57-0500 Body weight 80.74 kg Sam Meneses [place] Work Phone: [facility] DO Work Phone: 08-03-2021 09:57-0500 Diastolic blood pressure 90 mm[Hg] Sam Meneses [place] Work Phone: [facility] DO Work Phone: 08-03-2021 09:57-0500 Heart rate 66 /min Sam Meneses [place] Work Phone: [facility] DO Work Phone: 08-03-2021 09:57-0500 Systolic blood pressure 170 mm[Hg] Sam Meneses [place] Work Phone: [facility] DO Work Phone: Functional Status Date Assessment Result Facility 03-09-2024 Functional status Patient at Baseline [facility] Work Phone: 03-05-2024 Functional status Patient is Pro gressing Toward Baseline [facility] Work Phone: 12-03-2023 Functional Status N/A [facility] 07-09-2023 Functional Status N/A [facility] 04-03-2023 Functional Status N/A [facility] 01-23-2023 Functional Status N/A [facility] 01-01-2023 Functional Status N/A [facility] 11-03-2022 Functional Status N/A [facility] 10-02-2022 Functional Status N/A [facility] 06-15-2022 PHQ-9 [id number] In Remission (0-4 ) -[facility] 250 DO Work Phone: 04-24-2022 Functional Status N/A [facility] Mental Status Date Assessment Result Facility 03-09-2024 Cognitive function Cognitive Sta tus Patient at Baseline [facility] Work Phone: 03-05-2024 Cognitive function Cognitive Sta tus Patient is Progressing Toward Baseline [facility] Work Phone: Clinical Notes 11-23-2019 to 03-10-2024 Note Date & Type Note Facility 03-10-2024 Hospital Discharg e instructions Additional Instructions [facility] to manage care: - Full code - PT/OT eval and treat - Routine vital signs - Mepilex border foam to Coccyx for added protection. Change every 3 days and as needed. - CBC/CMP on Sunday - results to Oncology Dr. Cuevas [facility] Work Phone: 03-09-2024 Discharge summary Note Date/Time March 09, 2024 2:18pm [facility] ENTER [address] [place] [address] Discharge Summary Signed Patient: Neil Wilcox MR#: [id number] 0543 : 1945 Acct:[id number] Age/Sex: 78 / M Adm Date: 4 Loc: Room: [address] [place] [address]: Vijay Aguilar MD Copies to: MD Sam Zhang DO~ Providers Date of Admission: 03/05/24 Date of [...] who was in a CAT scan at [facility] getting a bone marrow biopsy when [...] can be found in the EHR of [facility]. The patient left hospital appropriately in stable [...] pending. Discharge Plan Discharge Plan Patient Disposition: shelter [place] Care/Resident Activity: No Activity Restriction Diet: Regular Additional Instructions: [facility] to manage care: - Full code - [...] 21 DAYS AND 7 DAYS OFF.ADULT MALE AUTH#[id number] losartan 100 mg tablet 100 mg PO [...] Timeframe: 1 Day Facility: ACUTE - Location: [facility] Ordered By: Bertha Cuevas Complete Blood Count Auto Diff (Stat) Timeframe: 1 Day Location: Determined by Patient Ordered By: Bertha Cuevas Complete Blood Count Auto Diff (Stat) Timeframe: 1 Day Facility: ACUTE - Location: [facility] Ordered By: Bertha Cuevas Complete Blood Count [...] Day Facility: ACUTE - Location: [facility] Ordered By: Bertha Cuevas Comprehensive Metabolic Panel (Stat) Timeframe: 1 Day Facility: ACUTE - Location: [facility] Ordered By: Bertha Cuevas Follow Up: Bertha Cuevas MD [[facility] Physician] - 03/19/24 2:00 pm (Follow-upwith Oncology [...] <Electronically signed by Vijay Aguilar MD> 03/09/24 1531 [facility] Work Phone: 1(512) 974-302906-15-2024 Progress note Author Vijay Aguilar [facility] March 08, 2024 7:44pm Note Date/Time March 08, 2024 7:45 pm [facility] ENTER [address] [place] [address] Hospitalist Progress Note Signed Patient: Neil Wilcox MR#: [id number] 0543 : 1945 Acct:[id number] Age/Sex: 78 / M Adm Date: 4 Loc: 3T Room: [address] [place] [address] Type: ADM IN Attending Dr: Vijay Aguilar [...] who was in a CAT scan at [facility] getting a bone marrow biopsy when [...] <Electronically signed by Vijay Aguilar MD> 03/08/241943 [facility] Work Phone: 1(672) 581-406406-14-2024 Progress note Author Verenice Mario [facility] March 07, 2024 2:50pm Note Date/Time March 07, 2024 2:50 pm [facility] ENTER [address] [place] [address] Med Onc/Hem Progress Note Signed Patient: Neil Wilcox MR#: [id number] 0543 : 1945 Acct:[id number] Age/Sex: 78 / M Adm Date: 4 Loc: Room: [address] [place] [address] Type: ADM IN Attending Dr: Roslyn Townsend [...] now progressed. Most recent labs done at [facility] during his evaluation for falls where [...] from and daughter. He had visited the [facility] after the event for site seen but [...] labs came back high concerning for IGA Lockney monoclonal multiple myeloma with IgA 3828, M [...] signed by MD Verenice Mario> 03/07/24 1450 [facility] Work Phone: 1(205) 612-208506-14-2024 Progress note Author Roslyn Townsend [facility] March 07, 2024 2:38pm Note Date/Time March 07, 2024 10:0 7am [facility] ENTER [address] [place] [address] Hospitalist Progress Note Signed Patient: Neil Wilcox MR#: [id number] 0543 : 1945 Acct:[id number] Age/Sex: 78 / M Adm Date: 4 Loc: Room: [address] [place] [address] Type: ADM IN Attending Dr: Roslyn Townsend DO Copies to: ~ Date of Service: 03/07/2024 Subjective Subjective Narrative: Mr. Wilcox is a 78M recently diagnosed with multiple myeloma with a PMHx of pancytopenia and renal insufficiency who was in a CAT scan at [facility] getting a bone marrow biopsy when [...] Tablet PO 03/06/25 08:59 Not Given DAILY [facility] Diphenhydramine HCl 25 mg 03/07/24 00:00 Diphenhydramine [...] Tablet PO 03/05/25 21:59 5 mg QHS [facility] Administration Folic Acid 1 mg 03/06/24 09:00 03/07/24 08:11 Folic Acid 1 Mg Tablet PO 03/06/25 08:59 Not Given DAILY [facility] Magnesium Sulfate 2 gm in 50 mls [...] Tablet PO 03/05/25 20:59 Not Given BID [facility] Methylprednisolone Sodium Succinate 125 mg 03/07/24 00:00 [...] signed by Roslyn Townsend DO> 03/07/24 1438 [facility] Work Phone: 1(507) 109-595406-14-2024 Progress note Author Roslyn Townsend [facility] March 07, 2024 9:31am Note Date/Time March 06, 2024 11:1 7am [facility] ENTER [address] [place] [address] Hospitalist Progress Note Signed Patient: Neil Wilcox MR#: [id number] 0543 : 1945 Acct:[id number] Age/Sex: 78 / M Adm Date: 4 Loc: Room: [address] [place] [address] Type: ADM IN Attending Dr: Roslyn Townsend [...] signed by Roslyn Townsend DO> 03/07/24 0931 [facility] Work Phone: 1(264) 322-213106-13-2024 [facility] Consult note Author Bertha Cuevas [facility] March 05, 2024 4:49pm Note Date/Time March 05, 2024 4:49 pm [facility] ENTER [address] [place] [place] [address] Med Onc/Hem Consult Note Signed Patient: Neil Wilcox MR#: [id number] 0543 : 1945 Acct:[id number] Age/Sex: 78 / M Adm Date: 4 Loc: ER Room: Type: [facility] ER Attending Dr: Copies to: [...] now progressed. Most recent labs done at [facility] during his evaluation for falls where [...] from and daughter. He had visited the [facility] after the event for site seen but [...] decreased bone marrow function and not hemolysis. 6/4/24 Myeloma labs came back high concerning for IGA Lockney monoclonal multiple myeloma with IgA 3828, M [...] fracture and therefore he is admitted to custodial now for rehab and probably long- term due to his dementia. He is a and was not active in water but he was in [place] and during [place] War. He visited [facility] for the sightseeing but was not during the nuclear [place] event. He has been having multiple falls as well since June [address]23. [facility] Medical History (Updated 03/05/24 @ 14:13 [...] Confirmed 03/05/24] thyroid (pork) 90 mg tablet (Harrah Thyroid) 90 mg PO QAM thyroid 02/27/20 [...] 03/05/24 11:53 03/05/24 16:06 03/05/24 16:06 03/05/24 16:06 03/05/24 16:03/05/24 12:51 Narrative: ECOG performance status is [...] of 1 Cycle Day Next Admin 3 of 168 No Active Chemotherapy Documented By: Bertha Cuevas MD 03/05/24 1618 Signed By: <Electronically signed by Bertha Cuevas MD> 03/05/24 1649 [facility] Work Phone: 1(232) 810-979806-12-2024 History and physical note Author Roslyn Townsend [facility] March 05, 2024 4:12pm Note Date/Time March 05, 2024 3:45 pm [facility] ENTER [address] [place] [place] [address] Hospitalist H&P Signed Patient: Neil Wilcox MR#: [id number] 0543 : 1945 Acct:[id number] Age/Sex: 78 / M Adm Date: 4 Loc: ER Room: Type: [facility] ER Attending Dr: Copies to: Trung Armenta, DO Sam Cooney,DO Roslyn Townsend, ~ HPI DATE OF EXAMINATION: 03/05/24 CHIEF COMPLAINT: Hypotension HISTORY OF PRESENT ILLNESS: Mr. Wilcox is a 78M recently diagnosed with multiple myeloma with a PMHx of pancytopenia and renal insufficiency who was in a CAT scan at [facility] getting a bone marrow biopsy when [...] negative unless noted below or in HPI [facility] Medical History (Updated 03/05/24 @ 14:13 [...] Confirmed 03/05/24] thyroid (pork) 90 mg tablet (Harrah Thyroid) 90 mg PO QAM thyroid 02/27/20 [...] Myeloma Pancytopenia - will consult oncology Raegan Dennis, MS4 Attending attestation: Patient is a 78-year-old [...] <Electronically signed by Roslyn Townsend DO> 03/05/24 0183 [facility] Work Phone: 1(130) 855-677106-12-2024 History and physical note Author Roslyn Townsend [facility] March 05, 2024 4:12pm Note Date/Time March 05, 2024 3:45 pm [facility] ENTER [address] [place] [place] [address] Hospitalist H&P Signed Patient: Neil Wilcox MR#: [id number] 0543 : 1945 Acct:[id number] Age/Sex: 78 / M Adm Date: 4 Loc: ER Room: Type: [facility] ER Attending Dr: Copies to: DO Sam Camara,DO Yazid Kristian, DO~ HPI DATE OF EXAMINATION: 03/05/24 CHIEF COMPLAINT: Hypotension HISTORY OF PRESENT ILLNESS: Mr. Wilcox is a 78M recently diagnosed with multiple myeloma with a PMHx of pancytopenia and renal insufficiency who was in a CAT scan at [facility] getting a bone marrow biopsy when [...] negative unless noted below or in HPI [facility] Medical History (Updated 03/05/24 @ 14:13 [...] Confirmed 03/05/24] thyroid (pork) 90 mg tablet (Harrah Thyroid) 90 mg PO QAM thyroid 02/27/20 [...] <Electronically signed by Roslyn Townsend DO> 03/05/24 161 [facility] Work Phone: 1(660) 232-338003-11-2024 Hospital Discharge instructions Patient Education 12/03/2023 16:13:12 [...] your health care provider. General instructions Take jrua-oof-dtcktkv and prescription medicines only as told by [...] provider. Document Revised: 05/30/2021 Document Reviewed: 05/30/2021 [employer] Patient Education 2022 [employer]. Follow Up Care 07/09/2023 11:46:47 With:MARTY BETANCOURT, Trung Frost, URL Address: [facility] [address] [place] [address]- [phone] When: Unknown Comments:6 mos (increase med dosage) [facility] [place] 02-27-2024 NoteProcedure Cancelation Documentation Entered On: 11/20/2023 10:21 EST Performed On: 11/20/2023 10:17 EST by Sahra Lizarraga RN Procedure Cancelation Documentation Surgery Procedure Cancelation : 11/20/2023 10:17 EST Surgery Procedure Cancel Reason : low hemoglobin/hematocrit. dr shaffer spoke with patient + pt's at length. pt instructed to contact primary care physician Sahra Lizarraga RN - 11/20/2023 10:17 [facility] 11-20-2023 NotePreprocedure Checklist Entered On: 11/15/2023 [...] risk situation (congregated living, hemodialysis, infusion clinic, custodial, assisted living, half-way, homeless residential, etc.)? : No Sahra Lizarraga [...] on and Verified : Yes Fall Risk Lens Cleaner : Yes Blood Band on and Verified : Yes Current H&P in Medical Record : Yes (Comment: 11/15/23 [Mary Ellen Price RN - 11/15/2023 13:49 EST] ) Mary Ellen Price RN 11/20/2023 9:50 EST Current ECG in Medical Record : Yes (Comment: 10/12/23 [Mary Ellen Price RN - 11/15/2023 13:49 EST] ) Basic [place] : Yes (Comment: 10/12/23 [Mary Ellen Price [...] : Living will, Medical durable power of civil rights attorney Advance Directive Location : Family to bring in copy from home Advance Directive Additional Information : No Mary Ellen Price RN - 11/15/2023 14:17 EST Surgical Clipper Prep Surgery Clipper Prep : done in preop Sahra Lizarraga RN - 11/20/2023 9:50 EST [facility]02-27-2024 NotePAA Education Entered On: 11/15/2023 13:49 [...] Education Dialysis Surgery - Hospital form # [id number] : Verbalizes understanding Mary Ellen Price RN [...] Mary Ellen Price RN - 11/15/2023 13:[facility] NotePatient: NEIL WILCOX Age: 78 years Sex: [...] 500 mg = 1 tabs, PRN, ORAL, [id number] acetaminophen/butalbital/caffeine 325 mg-50 mg-40 mg oral tablet = Fioricet 1 tabs, PRN, ORAL, [id number] Aspirin EC 81 mg oral delayed release [...] 2 mg = 1 caps, PRN, ORAL, [id number] losartan 100 mg oral tablet 100 mg [...] strength, No tenderness, No swelling. Integumentary: Warm, Daggett. Neurologic: Alert, Oriented. Cognition and Speech: Oriented, [...] and o (more content not included)...[facility]01-29-2024 History of Present illness Narrative* Za Hernández [...] due to atrial fibrillation, on anticoagulation. 10. [id number] at least 5. Has bled score 2 [...] redirect to the Timeline version of the pickrset SmartLink. Wt Readings from Last 3 Encounters: [...] Daily atorvastatin (LIPITOR) 40 mg, oral, Daily fnpgwlxwdr-myuhsgs-uxsxwgbd (Fiorinal) 50-325-40 mg capsule 1 capsule, oral, [...] By signing my name below, Halie Paez LPN , Scribe attest that this documentation has been [...] exam, discussion and plan. [facility] Work Phone: 1(396) 741-795101-29-2024 Instructions* Patient Instructions* Phuong Atkinson CMA - [...] time of your visit. documented in [facility]Ohio [facility] Work Phone: 1(772) 997-288001-19-2024 NotePAA Education Entered On: 10/12/2023 10:13 EST [...] : Needs further teaching Amy Hager RN - 10/12/2023 10:10 EST Topic Specific Education Health Maintenance GRID Bathing/Hygiene : Verbalizes understanding Diet/Nutrition : Verbalizes understanding Exercise : Verbalizes understanding Oral Care : Verbalizes understanding Amy Hager RN - 10/12/2023 10:10 EST Education Medication Management GRID Correct Self-Administration : Verbalizes understanding Amy Hager RN 10/12/2023 10:10 EST Education Respiratory Care Nursing GRID Smoking/Tobacco Use : Verbalizes understanding Amy Hager RN 10/12/2023 10:10 EST Infection Control Education Dialysis Surgery - Hospital form # [id number] : Needs further teaching Amy Hager RN [...] ) Amy Hager RN - 10/12/2023 10:10 [facility] 08-28-2023 Hospital course Narrative* Adam Benedict MD - 08/28/2023 1:11 PM EST Discharge Diagnosis Atrial fibrillation ([facility]) Hospital Course S/p VINNIE closure [...] 40 mg tablet; Commonly known as: Lipitor qgxkwteiqp-rauyatllxbcrr-tfhq 50-325-40 mg tablet cyanocobalamin 1,000 mcg tablet; [...] Center 09/20/2023 10:30 AM Za Hernández MD [address] Adam Benedict MD documented in this [facility] Work Phone: [phone]) 338-381112-05-2023 History of Present illness Narrative* Humble Felton, [facility] - 08/28/2023 12:10 PM EST Pharmacy Medication History Review Neil Wilcox is a 77 y.o. male admitted for Atrial fibrillation ([facility]). Pharmacy reviewed the patient's gnkeb-zd-fbhfibkqk medications and allergies for accuracy. The list below reflects the updated ABATEMENT WORKER list. Comments regarding how patient may be [...] tablet (40 mg) by mouth once daily. guiyykxomw-fsahtnnnetgrp-ckya 50-325-40 mg tablet Past Week Spouse/Significant Other, [...] Below are additional concerns with the patient's ABATEMENT WORKER list. Humble Felton [facility] Transitions of Care Clinical Pharmacist Please reach out via y prime Chat for questions, if no response call [employer] or [employer] [facility] documented in this encounterOhio [facility] Work Phone: [phone]) 931-776412-05-2023 Note* Pre-Sedation Documentation - Adam Benedict MD - 08/28/2023 10:39 AM EST Sedation Plan ASA 2 Mallampati class: II. Risks, benefits, and alternatives discussed with patient. [facility] Work Phone: [phone]) 173-295112-05-2023 Miscellaneous Notes* Pre-Sedation Documentation - Adam Benedict MD - 08/28/2023 10:39 AM EST Sedation Plan ASA 2 Mallampati class: II. Risks, benefits, and alternatives discussed with patient. documented in this [facility] Work Phone: [phone]) 961-973912-04-2023 Hospital Discharge instructions* Discharge Instructions* Lucas Frost RON Pearce-DIRECTOR OF BUSINESS DEVELOPMENT - 08/27/2023 12:20 PM EST Watchman Discharge [...] you have any concerns, youmay contact the Brake Repairer Hydraulic or if any of these symptoms become excessive, contact your micro photographer maikel to the emergency room. No tub [...] Any new concerning symptoms. documented in this [facility] Work Phone: [phone]) 742-374410-16-2023 Hospital Discharge instructions Patient Education 07/09/2023 11:37:10 [...] urethra. Follow these instructions at home: Take iyog-mmu-rzfxebw and prescription medicines only as told by [...] provider. Document Revised: 03/29/2022 Document Reviewed: 03/29/2022 [employer] Patient Education 2022 [employer]. Follow Up Care 01/01/2023 13:25:14 With:MARTY BETANCOURT, Trung Frost, URL Address: [facility] [address] [place] [address]- When:Within 4 Month(s) [facility] [place] 07-11-2023 Hospital Discharge instructions Patient Education [...] provider. Document Revised: 01/19/2022 Document Reviewed: 01/19/2022 [employer] Patient Education 2022 [employer]. Follow Up Care 01/23/2023 14:39:57 With:RITESH ALTAMIRANO, CHARLOTTE Meneses, URL Address: [address] [place] [address] When: Unknown Comments:keep appt w/ [facility] 06-01-2023 History of Present illness Narrative* 77-year-old with history of atrial fibrillation, hypercoagulability related to atrial fibrillation,high BUP6GX4-ZYEk score, most recently seen February 2023 and [...] to atrial fibrillation, on anticoagulation. * 10. NRE7QW7-DGCo at least 5. Has bled score 2 [...] 50 mg p.o. daily and discontinue amlodipine. -[facility] DO Work Phone: 1(372) 857-535405-02-2023 Hospital Discharge instructions Patient Education 01/23/2023 14:45:05 [...] air conditioner or fan, if available. Apply ftin-sjn-mtmdtuf and prescription medicines only as told by [...] well after activity or exercise. Use a chairman ceo on a cool setting to dry between [...] drying your skin and with medicines. Apply quhl-bpo-rlqjabn and prescription medicines only as told by your health care provider. Keep all follow-up visits as told by your health care provider. This is important. This information is not intended to replace advice given to you by your health care provider. Make sure you discuss any questions you have with your health care provider. Document Revised: 06/26/2022 Document Reviewed: 06/26/2022 [employer] Patient Education 2022 [employer]. [facility] 04-10-2023 Hospital Discharge instructions Patient Education 01/01/2023 [...] reconstructed. Follow these instructions at home: Take izfn-hcv-iqjwtxc and prescription medicines only as told by [...] 10/06/2016 Document Revised: 04/23/2019 Document Reviewed: 04/23/2019 [employer] Patient Education 2020 [employer]. Follow Up Care 10/02/2022 12:40:38 With:MARTY BETANCOURT, Trung Frost, URL Address: [facility] [address] , [place] [address]- When: Unknown [facility] [place] 02-10-2023 Hospital Discharge instructions Patient Education [...] reconstructed. Follow these instructions at home: Take ytmv-rkr-oqbqonr and prescription medicines only as told by [...] 10/06/2016 Document Revised: 04/23/2019 Document Reviewed: 04/23/2019 [employer] Patient Education 2019 [employer]. Follow Up Care 11/03/2022 12:06:47 With:MARTY BETANCOURT, Trung Frost, URL Address: [address] [place] [address]- When: Unknown [facility] 01-09-2023 Hospital Discharge instructions Patient Education 10/02/2022 [...] fried and sweet foods. General instructions Take vtqe-jwl-ocntrty and prescription medicines only as told by [...] 07/07/2010 Document Revised: 01/01/2020 Document Reviewed: 09/26/2018 [employer] Patient Education 2020 [employer]. Follow Up Care 07/24/2022 14:33:35 With:MARTY BETANCOURT, Trung Frost, URL Address: [facility] [address], [place] [phone] When:Within 3 Month(s) [facility] 01-01-2023 History of Present illness Narrative* 77-year-old [...] to atrial fibrillation, on anticoagulation. * 10. [id number] at least 5. Has bled score 2 insurance changed, now able to afford [employer]. * Recommendations: * 1. Decrease metoprolol succinate [...] 3 months sooner if interval problems arise [facility] [address] DO Work Phone: [phone]) [phone] History of Present illness Narrative* This is [...] orthostatics * 5. Fall precautions were reiterated. -[facility] DO Work Phone: 1(818) 186-374708-01-2022 Hospital Discharge instructions Patient Education 04/24/2022 12:32:07 [...] (electrical nerve stimulation). For women, using a rn medical surgical to prevent urine leaks. This is a [...] right after experiencing incontinence. General instructions Take wwgf-ovs-aqzwaan and prescription medicines only as told by [...] 10/18/2005 Document Revised: 09/20/2018 Document Reviewed: 12/20/2017 [employer] Patient Education 2020 [employer]. Follow Up Care 01/24/2022 09:45:35 With:MARTY BETANCOURT, Trung Forst, JOSH Address: [facility] [address] [place] [phone] When: Unknown Comments:w/ urodynamics [facility] [place] 05-02-2022 Hospital Discharge instructions Patient Education 01/23/2022 [...] urethra. Follow these instructions at home: Take rgqh-qud-rbybpwy and prescription medicines only as told by [...] 09/10/2006 Document Revised: 08/05/2019 Document Reviewed: 10/15/2017 [employer] Patient Education 2020 [employer] Follow Up Care 12/20/2021 10:58:17 With:MARTY BETANCOURT, JOSH Martin Address: [facility] [address] , [place] [address]- When: Unknown [facility] 01-01-2022 History of Present illness Narrative* Assessment: [...] have much in the way of symptoms. -[facility] DO Work Phone: 1(902) 330-110403-01-2020 History of Present illness NarrativeMr. Wilcox is a 75-year-old male seen back today for follow-up on his implanted loop recorder. He was seen initially as a consult requested by neurology. He was admitted to [facility] in [place] in November 2019 with an acute stroke. [...] pain seems to be stable from cardiac perspective.-[facility] DO Work Phone: 1(670) 945-582603-01-2020 History of Present illness Narrative* Patient is new to this provider. Per Dr. Reyes's prior notes: * Mr. Wilcox is a 75-year-old male seen back today for follow-up on his implanted loop recorder. He was seen initially as a consult requested by neurology. He was admitted to [facility] in [place] in November 2019 with an acute stroke. [...] medications for him in viewof his BPH. [facility] DO Work Phone: Chief complaint Narrative - ReportedNEIL WILCOX is being seen for Discuss progress.[facility] Work Phone: Evaluation + Plan note Future Appointments Appointment Date:01/24/2022 09:30:00 AM Scheduled Provider: Location:[facility] Appointment Type:Urology FT Appointment Date:09/04/2022 08:45:00 AM Scheduled Provider:Trung FERGUSON MD Location:[facility] Appointment Type:URO Office Visit [facility] evaluation + Plan note Future Appointments Appointment Date:04/25/2022 12:15:00 PM Scheduled Provider: Location:[facility] Appointment Type:Urology CALL PAT FT Appointment Date:05/09/2022 11:00:00 AM Scheduled Provider: Location:[facility] Appointment Type:Urology FT Appointment Date:09/04/2022 08:45:00 AM Scheduled Provider:Trung FERGUSON MD Location:[facility] Appointment Type:URO Office Visit [facility] evaluation + Plan note Future Appointments Appointment Date:09/04/2022 08:45:00 AM Scheduled Provider:Trung FERGUSON MD Location:[facility] Future [facility]ments Appointment Date:09/29/2022 08:45:00 AM Scheduled Provider:Trung FERGUSON MD Location:[facility] Appointment Type:URO Office Visit [facility] evaluation + Plan note Future Appointments Appointment Date:01/01/2023 11:30:00 AM Scheduled Provider:Trung FERGUSON MD Location:[facility] Appointment Type:URO Office Visit [facility] evaluation + Plan note Future Appointments Appointment Date:01/01/2023 11:30:00 AM Scheduled Provider:Trung FERGUSON MD Location:[facility] Appointment Type:URO Office Visit Diagnostic Tests Pending * [facility] Future Appointments Appointment Date:11/06/2022 09:00:00 AM Scheduled Provider: Location:[facility] Appointment Type:URO Nurse Visit Appointment Date:01/01/2023 11:30:00 AM Scheduled Provider:Trung FERGUSON MD [facility] Appointment Type:URO Office Visit [facility] evaluation + Plan note Future Appointments Appointment Date:07/09/2023 10:30:00 AM Scheduled Provider:Trung FERGUSON MD Location:[facility] Appointment Type:URO Office Visit [facility] evaluation + Plan note Future Appointments Appointment Date:04/03/2023 09:00:00 AM Scheduled Provider:CHARLOTTE BAKER PA-C Location:[facility] Appointment Type:URO Office Visit Appointment Date:07/09/2023 10:30:00 AM Scheduled Provider:Trung FERGUSON MD Location:[facility] Appointment Type:URO Office Visit [facility] evaluation + Plan note Future Appointments Appointment Date:11/12/2023 11:15:00 AM Scheduled Provider:Trung FERGUSON MD Location:[facility] Appointment Type:URO Office Visit [facility] evaluation + Plan note Future Appointments Appointment Date:06/16/2024 01:15:00 PM Scheduled Provider:Trung FERGUSON MD Location:[facility] Appointment Type:URO Office Visit [facility] evaluation noteNo Assessments Information Available [facility] note[facility] assessment information available [facility]* Diagnosis Paroxysmal atrial fibrillation (CMS/HCC)- Primary Atrial fibrillation Atrial fibrillation ([facility]/HCC)- Primary Atrial fibrillation Atrial fibrillation ([facility]/HCC) Atrial fibrillation documented in this encounter [facility] Work Phone: Evaluation note* Diagnosis Atrial fibrillation (CMS/HCC)- Primary Atrial fibrillation Atrial fibrillation (CMS/HCC) Atrial fibrillation Chronic atrial fibrillation, unspecified (CMS/HCC) 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 documented in this encounter [facility] Work Phone: Evaluation note* Diagnosis Unspecified [...] of left shoulder documented in this encounter [facility] Work Phone: Evaluation note* Diagnosis Atrial fibrillation, unspecified type (CMS/HCC) documented in this encounter [facility] Work Phone: Evaluation note* Diagnosis Onset Date Resolution Status Acute renal insufficiency ac [place] Anemia acute Elevated total protein acute Leukopenia acute Pancytopenia acute Thrombocytopenia acute Acute hypotension acute Acute renal insufficiency ac [place] Anemia acute Hypercalcemia acute Multiple myeloma acute Pancytopenia acute Syncope acute Thrombocytopenia acute [facility] Work Phone: Evaluation note* Diagnosis Onset Date Resolution Status Acute renal insufficiency ac [place] Anemia acute Elevated total protein acute Leukopenia acute Pancytopenia acute Thrombocytopenia acute Acute hypotension acute Acute renal insufficiency ac [place] Alzheimer's dementia acute Anemia acute Encounter for chemotherapy management acute Hypercalcemia acute Leukopenia acute Multiple myeloma acute Pancytopenia acute Syncope acute Thrombocytopenia acute [facility] Work Phone: Evaluation note* Diagnosis Onset Date Resolution Status Anemia acute Elevated total protein acute Pancytopenia acute Acute renal insufficiency re solved Leukopenia resolved Thrombocytopenia resolved Alzheimer's dementia acute Hypercalcemia acute Multiple myeloma acute Pancytopenia acute Acute hypotension resolved Acute renal insufficiency re solved Anemia resolved Encounter for chemotherapy management resolved Leukopenia resolved Syncope resolved Thrombocytopenia resolved [facility] Work Phone: Evaluation note* Diagnosis Onset Date Resolution Status Anemia acute Elevated total protein acute Pancytopenia acute Acute renal insufficiency re solved Leukopenia resolved Thrombocytopenia resolved Alzheimer's dementia acute Hypercalcemia acute Multiple myeloma acute Pancytopenia acute Acute hypotension resolved Acute renal insufficiency re solved Anemia resolved Encounter for chemotherapy management resolved Leukopenia resolved Syncope resolved Thrombocytopenia resolved Anemia acute Hypercalcemia acute Multiple myeloma acute Pancytopenia acute Acute renal insufficiency re solved [facility] Work Phone: History of Present illness Narrative* The patient states he has been generally stable since the last visit. Comorbid Illnesses: hypertension. * Symptoms: denies chest pain at rest, denies exertional chest pain, denies dyspnea, worsened fatigue, worsened exercise intolerance, denies palpitations, denies edema, denies orthopnea, denies dizziness and denies orthostatic dizziness. * Disease Monitoring: -[facility] Laguer[facility] DO Work Phone: History of [...] the near future to establish anticoagulation practice. -[facility] Laguer[facility] DO Work Phone: History of [...] the near future to establish anticoagulation practice. [facility] DO Work Phone: History of Present illness [...] medication regimen. He denies medication side effects. [facility] [employer] DO Work Phone: History of Present illness [...] medication regimen. He denies medication side effects. [facility] [employer] DO Work Phone: Hospital course Narrative No data available for this section [facility] Hospital Discharge instructions No data available for this section [facility] Additional Instructions [facility] to manage care: - Full code - PT/OT eval and treat - Routine vital signs - Mepilex border foam to Coccyx for added protection. Change every 3 days and as needed. - CBC/CMP on Sunday - [facility] Work [facility]: Hospital Discharge instructionsAmbulatory Orders* Referral to General Surgery Time Frame: 03/20/24, Location: None Selected [facility] Work Phone: Progress note No data available for this section [facility] progress note Author Bertha [facility] March 20, 2024 9:14am Note Date/Time March 20, 2024 8:19 am [facility] [place] [address] Cancer Center Note Signed Patient: Neil Wilcox MR#: [id number] : 1945 Acct:[id number] Age/Sex: 78 / M Type: REG AMB Date of Service: 03/20/24 Copies to: Sam Cooney,DO~ Assessment & Plan A/P (1) Multiple myeloma: (2) Hypercalcemia: (3) Acute renal insufficiency: (4) Pancytopenia: (5) Anemia: Plan Please see the HPI for the details of the history. His pancytopenia and elevated total protein with a recent acute renal insufficiency, but with a normal creatinine back in 2021 needs to be further evaluated as differential diagnosis very broad from MDS versus PNH versus hemolytic anemia versus autoimmune diseases to infectious diseases to factor deficiency B12 folate iron and copper to multifactorial pancytopenia. I offered the patient and family to get the bone marrow biopsy done. With the blood work. Need to also rule out multiple myeloma with his renal insufficiency and elevatedtotal protein as well as anemia. Family wants to have a blood work for now before deciding about bone marrow biopsy. Labs to be ordered for this week including: CBC with differential, CMP, LDH, reticulocyte count, PNH flow, MDS FISH, peripheral blood flow cytometry, iron studies, copper, B12, folate, multiple myeloma labs, CAMILA, RF, SADIE, HIV, and chronic hepatitis panel. Skeletal bone survey on 03/05/24 revealed; Mottled lytic changes of the skull, humeri, femurs and radius and ulna concerning for bony findings of multiple myeloma. Age-indeterminate L1, L2 and L4 compression deformities. Degenerative change. Bone marrow aspiration and biopsy performed 03/06/24 and while it was pending wegave him chemo since patient met clinical criteria for multiple myeloma with kappa/lambda light chain ratio greater than 100 and lytic lesions on bone surveyperformed 03/05/2024. Patient is currently pain-free and should not require additional supportive care other than transfusions if worsening cytopenias. BM Bx, done as inpatient at [facility], revealed multiple myeloma. Myeloma FISH revealed 14 q. 32 rearrangement detected. Karyotype revealed complex cytogenetics. MDS FISH were normal. Cycle 1 day 1 bortezomib and Velcade given on 03/06/24. Significant improvement of renal function to normal since admission. We anticipate that initiating therapy for myeloma may improve both his renal insufficiency and pancytopenia. Stable leukopenia and thrombocytopenia. Bortezomib is not excessively myelosuppressive but recall if there are any concerns regarding his cytopenias. No indication for growth factor support for his moderate neutropenia without infection. Calcium was down to 7.7 and creatinine is 1.05 on 03/09/24. PLAN: Plan is to proceed with C2 of Velcade and Dexamethasone on 03/20/24 then switch him to Daratumumab, Revlimid and Dexamethasone based on further discussions withthe patient's who is his surrogate decision-maker. Daratumumab and Revlimidwith Dex will start C1 on 03/24/24. Whole body PET CT Weekly CBCD, CMP, LDH and uric acid. RTC in 2 weeks for toxicity check. Orders: Orders PET tumor init tx strat sb-mt 3 Days C90.00 - Multiple myeloma not having achieved remission, D61.818 - Other pancytopenia, Z01.89 - Encounter for other specified special examinations Referrals Referral to General Surgery C90.00 - Multiple myeloma not having achieved remission Patient Instructions: velcade today, draw issa lab today start daratumamab Sunday PET soon refer for port placement tox check next week CHEMO PLAN Treatment Plan Bortezomib 1.3mg/m2 SQ and Dexamethasone D1,8,15 Q21D Clinical Indication No Indication Cycle Number Last Admin 1 of 2 Cycle Day Next Admin 14 No Active Chemotherapy More Active Plan(s) Found History of Present Illness SHAN Bojorquez is 78-year-old nice gentleman with time or dementia, benign prostatic hypertrophy, normal pressure hydrocephalus, hypertension, history of hyperlipidemia controlled on status, depression and A-fib who had Watchman procedure and loop recorder as well who was noticed to have progressive pancytopenia started with leukopenia in 2019 that has progressed to minimal anemia in 2021 and late 2021 started having thrombocytopenia that has not progressed. Most recent labs done at [facility] during his evaluation for falls where [...] and 2020 he had a normal creatinine. Calcium is 10.6 ALT 20 AST 11 total bilirubin 0.9 alk phos of 71. Total protein was high at 9.6 and albumin of 2.7 low. Patient was referred for further evaluation. Patient is a poor historian due to Alzheimer'sbut story obtained from and daughter. 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 He had visited the [place] nuclear event after the event for site seen [...] since March 2023 as per daughter. Before that he will history brought independently to the doctor appointments and he hasbeen needing assistance ever since. 02/21/24: He saw [...] labs came back high concerning for IGA Lockney monoclonal multiple myeloma with IgA 3828, M [...] fluid and inpatient bone marrow biopsy and chemo as inpatient Patient was confused and oriented to self only but not to date or place when he was inpatient on 03/06/24. Due to his rapid progression in symptoms we decided to treat him as an inpatientgiven his generalized weakness. Since the patient has known history of Alzheimer's dementia, his signed informed consent for him to start therapy.Chemotherapy with bortezomib and dexamethasone as an inpatient due to laboratories consistent with multiple myeloma (kappa/lambda light chain ratio greater than 100). Creatinine has improved since admission with admission creatinine 2.19, currently 1.02. This may be due to his steroid therapy partially treating his myeloma. Dr. Cuevas has ordered weekly bortezomib with dexamethasone. 03/20/24: Skeletal bone survey on 03/05/24 revealed; Mottled lytic changes of the skull, humeri, femurs and radius and ulna concerning for bony findings of multiple myeloma. Age-indeterminate L1, L2 and L4 compression deformities. Degenerative change. Bone marrow aspiration and biopsy performed 03/06/24 and while it was pending wegave him chemo since patient met clinical criteria for multiple myeloma with kappa/lambda light chain ratio greater than 100 and lytic lesions on bone surveyperformed 03/05/2024. Patient is currently pain-free and should not require additional supportive care other than transfusions if worsening cytopenias. BM Bx, done as inpatient at [facility], revealed multiple myeloma. Myeloma FISH revealed 14 q. 32 rearrangement detected. Karyotype revealed complex cytogenetics. MDS FISH were normal. Cycle 1 day 1 bortezomib and Velcade given on 03/06/24. Significant improvement of renal function to normal since admission. We anticipate that initiating therapy for myeloma may improve both his renal insufficiency and pancytopenia. Stable leukopenia and thrombocytopenia. Bortezomib is not excessively myelosuppressive but recall if there are any concerns regarding his cytopenias. No indication for growth factor support for his moderate neutropenia without infection. Calcium was down to 7.7 and creatinine is 1.05 on 03/09/24. He came to the clinic on 03/20/24 to receive the 2nd cycle of Velcade and dex andwill be switched to daratumumab, Revlimid and Dex. Intake Vitals/Pain Assessment 03/20/24 08:23 BP 121/72 Blood Pressure Location Lt brachial Position Sitting Temp 98.0 F Temp Source Temporal Pulse 86 Pulse Source NIBP Respiration 20 Pulse Oximetry (%) 97 Oxygen Delivery Method room air Are you having pain? Yes Pain Location back Pain scale (0-10) 6 Intake Visit Reasons: Follow Up Accompanied by: Spouse Allergies No Known Allergies Allergy (Verified 03/20/24 08:22) - Last Reconciled 03/20/24 by Crystal Lizarraga acetaminophen 500 mg PO BID aspirin 81 mg PO QPM cyanocobalamin (vitamin B-12) 1,000 mcg PO DAILY doxazosin 4 mg PO DAILY finasteride 5 mg PO QHS fluoxetine 40 mg PO DAILY folic acid 1 mg PO DAILY lenalidomide (Revlimid) 25 mg PO DAILY losartan 100 mg PO QAM memantine 10 mg PO BID metoprolol succinate ER 25 mg PO DAILY ondansetron HCl 4 mg PO .Q8 PRN quetiapine (Seroquel) 25 mg PO BID spironolactone 25 mg PO DAILY tolterodine ER 2 mg PO DAILY Gastrointestinal Is the patient taking opioids for pain control?: No Bowel Protocol for Opioids Given: No Bowel Pattern: Regular Bowel Movement Aid(s): None Falls Fall Precaution Measures Taken: Patient in chair Nurse's Note: Patient is here for an inpatient follow up, had bone marrow biopsy while inpatient. [facility] Medical History Medical History (Updated 03/13/24 @ 00:01 by Kim Treviño) Hypercalcemia Thrombocytopenia Elevated total protein Acute renal insufficiency Chronic ITP (idiopathic thrombocytopenia) Leukopenia Anemia Pancytopenia Presence of Watchman left atrial appendage closure device device placed 2022 Arthritis BPH (benign prostatic hyperplasia) TIA (transient ischemic attack) Hyperlipidemia Hiatal hernia Neck problem Hypothyroid Hypertension Surgical History Surgical History Hx of tonsillectomy History of right shoulder replacement Family History Family History Father Pneumonia Father Pneumonia 89 yrs Mother Congestive heart failure 93 yrs Social History Social History Smoking status: Former smoker In the past 12 months, have you used illegal drugs or prescription drugs for non-medical reasons?: No Review of Systems ROS Details: All systems reviewed & no [...] fracture and therefore he is admitted to custodial now for rehab and probably long- term due to his dementia. He is a and was not active in water but he was in [place] and during [place] War. He visited [facility] for the sightseeing but was not during the nuclear [place] event. He has been having multiple falls as well since June 2023. Physical Exam EXAM ECOG performance status is 2 currently due to using which she had not able to ambulate due to her [...] weakness and multiple falls since June 2023. Results - [facility] (Med Onc) LAB RESULTS Corrected WBC 2.8 X10E3/uL (4.1-10.5) L 03/09/24 05:57 Hgb 9.2 g/dL (13.0-17.0) L 03/09/24 05:57 Hct 26.1 % (38.8-50.0) L 03/09/24 05:57 MCV 97.2 fl (83.5-101) 03/09/24 05:57 RDW 20.7 % (12.0-14.8) H 03/09/24 05:57 Plt Count 62 x10E3/uL (150-450) L 03/09/24 05:57 Sodium 136 mmol/L (136-145) 03/09/24 05:57 Potassium 3.3 mmol/L (3.5-5.1) L 03/09/24 05:57 BUN 18 mg/dL (7-25) 03/09/24 05:57 Creatinine 1.05 mg/dL (0.70-1.30) 03/09/24 05:57 Glucose 97 mg/dL (70-100) 03/09/24 05:57 Est GFR (CKD-EPI) > 60.0 mL/Min 03/09/24 05:57 Calcium 7.7 mg/dL (8.6-10.3) L 03/09/24 05:57 Total Bilirubin 0.5 mg/dl (0.3-1.0) 03/09/24 05:57 AST 11 U/L (13-39) L 03/09/24 05:57 ALT 10 U/L (7-52) 03/09/24 05:57 Alkaline Phosphatase 50 U/L (34-104) 03/09/24 05:57 Iron 139 ug/dL (50-212) 02/26/24 11:51 Iron Saturation 64.1 % (20-50) H 02/26/24 11:51 Ferritin 720.3 ng/mL (23.9-336.2) H 02/26/24 11:51 Total Protein 7.8 gm/dL (6.4-8.9) 03/09/24 05:57 Albumin 2.7 gm/dL (3.5-5.7) L 03/09/24 05:57 Lactate Dehydrogenase 118 U/L (140-271) L 02/26/24 11:51 PATHOLOGY RESULTS BM Bx on 03/06/24: Abnormal male karyotype?COMPLEX: 48~49,XY, add(6)(q13),t(6;14)(p21;q32),+ 11,+2mar[cp3]/ 46,XY[18] Signature Chaitanya Paulino MD, Pathologist (Signed 03/19/24, 1040) Pathological Diagnosis A and B, left posterior [...] findings of the KMT2A (MLL) (11q23), and RPN1/ MECOM (3q) -The FISH analysis for plasma cell myeloma panel is abnormal -IgH (14q32) Rearrangement: Detected (Atypical) Note 2: -The cause of progressive pancytopenia during the last 4 years is compatible with the effect of the interval occurrence of multiple myeloma -The atypical plasma cells are positive for CD20, as shown by immunohistochemistry, and is also partially defined by the flow cytometry of note -Pending additional cytogenetic and other molecular study to follow Dictated By: Bertha Cuevas MD DD/ Signed By: <Electronically signed by Bertha Cuevas MD> 03/20/24 0914 [facility] Work Phone: Reason for referral (narrative)* Consultation (Routine) - Authorized Specialty Diagnoses / Procedures Referred By Contac t Referred To Contact Cardiology Diagnoses Paroxysmal atrial fibrillation (CMS/HCC) Procedures Follow Up In Cardiology Za Hernández MD [address] [place], [place] [id number] Za Hernández MD [address] [facility] [address] [place] [address] Referral ID Status Reason Start Date Expiration Date V isits Requested Visits Authorized [id number] Authorized 10/22/2023 10/21/2024 1 1 * Consultation (Routine) - Authorized Specialty Diagnoses / Procedures Referred By Contac t Referred To Contact Cardiology Diagnoses Paroxysmal atrial fibrillation (CMS/HCC) Procedures Follow Up In Cardiology Za Hernández MD [address] [facility] [address] [place] [address] Loulou Arreguin, POCKET ASSEMBLER-DIRECTOR OF BUSINESS DEVELOPMENT [address] [facility] [address] [place] [address] Referral ID Status Reason Start Date Expiration Date V isits Requested Visits Authorized [id number] Authorized 10/22/2023 10/21/2024 1 1 [facility] Work Phone: Reason for Referral Status Reason Specialty Diagnoses / Procedures Referred By Contact Referred To Contact Not Required - Recondo Radiology Diagnoses 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) Procedures CT HEAD WO CONTRAST Ul Shalom Graham MD [address] [facility] [address] [place] [address] Specialty Diagnoses / Procedures Referred By Contac t Referred To Contact Radiology Diagnoses Atrial fibrillation, unspecified type (CMS/HCC) Procedures [place] [address] [place] [address] Referral ID Status Reason Start Date Expiration Date Visits Requested Visits Authorized [id number] Authorized Perform Procedure 11/01/2023 10/31/2024 1 1 Assessments Diagnosis 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..] Recorded Date/T radha father Pneumonia Unknown Unknown mother Congestive heart failure Unknown Relationship Condition Age at Onset Recorded Date/T radha father Pneumonia Unknown Unknown Not Specified Congestive heart failure Unknown No Family History Records Found Chief Complaint and Reason for Visit Chief Complaint NEW Pancytopenia Multiple Myeloma Low blood pressure Cerebral Infarction Follow Up pancytopenia Reason for Visit Anemia Elevated total protein Pancytopenia Acute renal insufficiency Leukopenia Thrombocytopenia Alzheimer's dementia Hypercalcemia Multiple myeloma Pancytopenia Acute hypotension Acute renal insufficiency Anemia Encounter for chemotherapy management Leukopenia Syncope Thrombocytopenia Anemia Hypercalcemia Multiple myeloma Pancytopenia Acute renal insufficiency Chief Complaint NEW Pancytopenia Multiple Myeloma Low [...] seen for a 6 month follow-up of.NEIL SAUCEDOUBB is being seen for a 6 month follow-up of.NEIL SAUCEDOUBB is being seen for a 3 month follow-up of. Additional Source Comments Reason for Visit (unrecogniz ed section and content) Status Reason Specialty Diagnoses / Procedures Referred By Contact Referred To Contact Not Required - Recondo Radiology Diagnoses 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) Procedures CT HEAD WO CONTRAST Ul Shalom Graham MD [address] [facility] [address] [place] [id number] Reason Comments laao Specialty Diagnoses / Procedures Referred By Contac t Referred To Contact Diagnoses Atrial fibrillation (CMS/HCC) Atrial fibrillation (CMS/HCC) [I48.91] Procedures MN PERQ CLSR TCAT L ATR APNDGE W/ENDOCARDIAL IMPLNT MN PERQ CLSR TCAT L ATR APNDGE W/ENDOCARDIAL IMPLNT LAAO (Left Atrial Appendage Occlusion) [place] [address] [address] [facility] [address] [place] [address] Referral ID Status Reason Start Date Expiration Date Visits Re quested Visits Authorized [id number] 1 1 Reason Comments Follow-up Watchman follow up Specialty Diagnoses / Procedures Referred By Romelia louis Referred To Contact Radiology Diagnoses Atrial fibrillation, unspecified type (CMS/HCC) Procedures [place] [address] [place] [address] Referral ID Status Reason Start Date Expiration Date Visits Requested Visits Authorized [id number] Authorized Perform Procedure 11/01/2023 10/31/2024 1 1 [...] section and content) DATE CREATED AUTHOR 10/14/2020 [facility] DATE CREATED AUTHOR AUTHOR'S ORGANIZ ATION 04/23/[address] [facility] DATE CREATED AUTHOR AUTHOR'S ORGANIZ ATION 10/04/2021 [facility] DATE CREATED AUTHOR AUTHOR'S ORGANIZ ATION 01/24/2023 [facility] DATE CREATED AUTHOR AUTHOR'S ORGANIZ ATION 06/15/2023 [employer] DATE CREATED AUTHOR AUTHOR'S ORGANIZ ATION 08/05/2023 [facility] DATE CREATED AUTHOR AUTHOR'S ORGANIZ ATION 09/02/2023 [facility] DATE CREATED AUTHOR AUTHOR'S ORGANIZ ATION 10/24/2023 [facility] DATE CREATED AUTHOR AUTHOR'S ORGANIZ ATION 11/21/2023 [facility] DATE CREATED AUTHOR AUTHOR'S ORGANIZ ATION 12/04/2023 Adan Annus [facility] DATE CREATED AUTHOR AUTHOR'S ORGANIZ ATION 01/03/2024 [facility] DATE CREATED AUTHOR AUTHOR'S ORGANIZ ATION 01/16/2024 [facility] DATE CREATED AUTHOR AUTHOR'S ORGANIZ ATION 02/13/2024 [facility] DATE CREATED AUTHOR AUTHOR'S ORGANIZ ATION 03/05/2024 [facility] DATE CREATED AUTHOR AUTHOR'S ORGANIZ ATION 03/20/2024 [facility] Goals (unrecognized section and [...] Provider Active Start: February 21, 2024 Bertha Cueavs MD Attending Provider Active Start: February 21, 2024 Team Status: Inactive Member Role Status Dates Sam Cooney DO Primary Care Provider Active Za Hernández MD Attending Provider Active 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 Start Date End Date ErosRosakaterin Mcarthur LenDO [address] [place] [address] PCP - General 09/24/19 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 Start Date End Date Eros Sam Evans DO [address] [place] [address] PCP - General 09/24/19 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 Start Date End Date Eros Sam MoratDO [address] [place] [address] PCP - General 09/24/19 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 Start Date End Date Sma Cooney MD [address] [place] [id number] PCP - General Family Medicine 08/13/23 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 Start Date End Date Eros Sam Evans DO [address] [place] [address] PCP - General 09/24/19 Team Status: Inactive [...] March 17, 2024 End: March 17, 2024 Team Status: Inactive Member Role Status Dates Sam Cooney DO Primary Care Provider Active Start: March 20, 2024 End: March 20, 2024 Bertha Cuevas MD Attending Provider Active Start: March 20, 2024 End: March 20, 2024 Team Status: Active Member Role Status Dates Sam Cooney DO Primary Care Provide r, Referring Provider Active Start: March 20, 2024 Bertha Cuevas MD Attending Provider Active Start: March 20, 2024 Scheduled Active and Recently Administ ered [...] Indication (Select all that apply): Surgical Prophylaxis 1029 (Due) clopidogrel (Plavix) tablet 75 mg 75 [...] 1217 (New Bag - Prov ider: Kala Canseco, TRE) traMADol (Ultram) tablet 50 mg 50 mg, [...] BE BASED ON THE PRIMARY CLINICAL RECORDS. [employer] provides no warranty or guarantee of the accuracy or completeness of information in this document.
[2024-03-21 08:13] LABS: Hematocrit 24.4 % (42.0-54.0); Hemoglobin 8.1 g/dL (14.0-18.0); Mean Corpuscular HGB Conc 33.2 g/dL (29.9-35.2); Mean Corpuscular Hemoglobin 32.3 pg (25.9-34.0); Mean Corpuscular Volume 97.2 fL (80.0-94.0); Mean Platelet Volume 9.8 fL (9.5-13.5); Platelet Count 47 10^3/uL (150-450); Red Blood Count 2.51 10^6/uL (4.70-6.10); Red Cell Distribution Width 17.7 % (11.0-15.0); White Blood Count 1.7 10^3/uL (4.0-11.0)
[2024-03-21 08:45] LABS: Alanine Aminotransferase 14 U/L (16-63); Albumin Globulin Ratio 0.4; Albumin Level 2.4 g/dL (3.4-5.0); Alkaline Phosphatase 78 U/L (46-116); Anion Gap 13.9; Aspartate Amino Transferase 11 U/L (15-37); BUN Creatinine Ratio 12.9; Bilirubin Total 0.7 mg/dL (0.2-1.0); Calcium 9.1 mg/dL (8.5-10.1); Carbon Dioxide 24.7 mmol/L (21.0-32.0); Chloride 103 mmol/L (98-107); Estimated GFR (African America >60 (>=60); Estimated GFR (Non-African Ame 57 (>=60); Globulin 6.3 g/dL; Glucose 85 mg/dL (74-106); Potassium 4.6 mmol/L (3.5-5.1); Sodium 137 mmol/L (136-145); Total Protein 8.7 g/dL (6.4-8.2)
[2024-03-21 11:32] LABS: Anisocytosis 1+; Eosinophils Absolute Manual 0.08 10^3/uL (0.00-0.70); Lymphocytes Absolute Manual 1.17 10^3/uL (1.20-3.80); Segmented Neut Absolute Manual 0.44 10^3/uL (1.4-6.5)
== END 2024-03-21 03:11 | disposition home or self-care (01) ==
LOC: LAB 03:10
PROVIDERS: PCP Family Medicine; Visit Provider Family Medicine
DX: C90.00 Multiple myeloma not having achieved remission (principal)
CPT/HCPCS: 36415; 80053; 85007; 85027

== ENCOUNTER 2024-03-26 00:40 | Outpatient (REF) | payer MEDICARE, OTHER, SELFPAY ==
--- OUTSIDE RECORDS SUMMARY | 2024-03-26 00:45 | XMS_ITS ---
Patient Summarization (C-CDA 2.1 CCD) Created on: March 26, 2024 JeriNeil : 1945 Sex: Male Author Organization Sample organization Care Team Providers Care Hand Trucker Name Role Phone Caldwell, [place] E Primary Care Provider [phone] Sam Cooney Primary Care Provider [phone] Erick Wise Attending Provider Ul Santos, Israr Attending Provider [phone] Caldwell, [place] E Primary Care Provider [phone] LESTER GAO Admitting Unavailable LESTER GAO Attending Unavailable BILLY VILLA Referring Unavailable CYNDY MADISON Consulting Unavailable BRISTOL, SAM E Primary Care Unavailable UL SANTOS, ISRAR Referring Unavailable BRISTOL, SAM E Primary Care Unavailable UL SANTOS, ISRAR Referring Unavailable BRISTOL, SAM E Primary Care Unavailable Sam Cooney Attending Provider [phone] Sam Cooney Primary Care Provider Erick Wise Attending Provider Sam Cooney Primary Care Provider [phone] Erick Wise Attending Provider [phone] Sam Cooney Attending Provider [phone] Caldwell, [place] E Unavailable Unavailable Unavailable SAM COONEY Primary Care Physician [phone] Unavailable Unavailable DO Sam Cooney Primary Care Provider [phone] MD Za Hernández Attending Provider [phone] MARTY Jiang, DR NINO Consulting Unavailable MARTY ., DR NINO Attending Unavailable DR TRUNG RUGGIERO Admitting Unavailable DR SAM COONEY Primary Care Unavailable ROXANNE ZAIDI Consulting Unavailable FERGUSON ., DR NINO Attending Unavailable FERGUSON ., DR NINO Admitting Unavailable FERGUSON ., DR NINO Consulting Unavailable BRISTOL, DR VARGAS Primary Care Unavailable CLARA VALADEZ Consulting Unavailable RODRÍGUEZ, DR CONCHITA Frost Consulting Unavailable RODRÍGUEZ, DR CONCHITA Frost Attending Unavailable BRISTOL, DR VARGAS Primary Care Unavailable RODRÍGUEZ, DR CONCHITA Frost Admitting Unavailable EBONI PETE [...] Attending Unavailable BRISTOL, DR VARGAS Admitting Unavailable Caldwell, DO Sam Primary Care Provider [phone] MD Za Hernández Attending Provider PURNIMA DAVIDSON JR Primary Care Unavailable Caldwell, DO Sam Primary Care Provider MD Za Hernández Attending Provider Sam Cooney DO Primary Care [facility] ider Eros, Dr. Sam Evans Primary [...] Hurt Referring Unavai lable Eros, Dr. Sam Evans Primary Care Unavailable Rodríguez, MsDeidre Hurt Attending Dima Arerguin, MsDeidre Hurt Referring Unavai lable Eros, Dr. Sam Evans Primary Care Unavailable Caldwell, Dr. Sam Evans Primary Care Unavailable Caldwell, Dr. Sam Evans Primary Care Unavailable Caldwell, Dr. Sam Evans Primary Care Unavailable Caldwell, DO Sam Primary Care Provider MD Za Hernández Attending Provider [phone] ZA HERNÁNDEZ Attending Unavailable SAM COONEY Primary Care Unav ailable Sam Cooney MD Primary Care Provider [phone] GUNNAR SHAFFER DO Attending Unavailabl e SHAFFER DO, GUNNAR Admitting Unavailabl e CAMILA ZEPEDA MD Referring Unavailabl e SHAFFER DO, GUNNAR Attending Unavailabl e SHAFFER DO, GUNNAR Admitting Unavailabl e CHARLOTTE BAKER Attending Unavailable Trung FERGUSON Attending Unavailable MARTY, Trung Frost Attending Unavailable Trung FERGUSON Attending Unavailable MARTY, Trung Frost Attending Unavailable CHARLOTTE BAKER Attending Unavailable RYAN [...] CHAVEZ Attending Unavailable GRACE VAZQUEZ Attending Unavailable Eros, DO Sam Primary Care Provider [phone] Eros, DO Vargas Referring Provider MD Faith artem Kirkpatrick Attending Provider [phone] EROS SAM [facility] Primary Care Unav ailable RYAN COBB Admitting Unavailable RYAN COBB Attending Unavailable [facility] Primary Care Unav ailable Caldwell, DO [place] Primary Care Provider Caldwell, DO [place] Referring Provider MD Bertha Cuevas Attending Provider TuDO radha Trung M Emergency Provider [phone] Kristian, DO Yazid Admit Provider Kristian DO Yazid Attending Provider [phone] MD Verenice Mario Other Provider MD Vijay Aguilar Attending Provider Caldwell, DO [place] Primary Care Provider MD Bertha Cuevas Attending Provider Caldwell, DO [place] Referring Provider MD Za Hernández Attending Provider [phone] Caldwell, DO [place] Referring Provider [phone] Caldwell, Sam Primary Care Unavailable Hernández, Za Admitting Unavailable HernándezAlton conklintha Attending Unavailable Caldwell, [place] Primary Care Unavailable Jessica Hernándeza Attending Unavailable Hernández, Za Admitting Unavailable Caldwell, [place] Primary Care Unavailable Jessica Hernándeza Attending Unavailable Hernández, Za Admitting Unavailable HernándezJessicaa Attending Unavailable Hernández, Za Admitting Unavailable Caldwell, [place] Primary Care Unavailable Caldwell, Sam Primary Care Unavailable Al-Marrawi, Mhd Yaser Admitting Unavailabl e Al-MarraBertha sandoval Yaser Attending Unavailabl e Caldwell, Sam Referring Unavailable Caldwell, Sam Primary Care Unavailable Al-Marrawi, Mhd Yaser Admitting Unavailabl e Al-Marrajaime, Mhd Yaser Attending Unavailabl gideon Mario, Verenice Consulting Unavailable Kristian, Yazid Admitting Unavailable Vijay Aguilar Attending Unavailable Caldwell, [place] Primary Care Unavailable Caldwell, [place] Primary Care Unavailable Hernández, Za Admitting Unavailable Hernández, Za Attending Unavailable Unavailable Unavailable Unavailable Encounters Encounter Date Encounter Type Care Provider Facility Start: 06-16-2024 ambulatory Trung Santizo ty:[facility] Start: 03-24-2024 ambulatory Sam Cooney Facility :[facility] Start: 03-20-2024 Registered Recurring DO Sam Cooney Work Phone: [facility] Work Phone: Start: 03-20-2024 End: 03-20-2024 ambulatory DO Sam Cooney Work Phone: [facility] Work Phone: Start: 03-20-2024 End: 03-20-2024 Patient encounter procedure DO Sma Cooney Work Phone: [facility] Work Phone: Start: 03-17-2024 End: 03-17-2024 Patient encounter procedure DO Sam Cooney Work Phone: [facility]Pac[facility] Check Start: 03-17-2024 End: 03-17-2024 ambulatory DO Sam Cooney Work Phone: [facility] Work Phone: Start: 03-14-2024 Registered Recurring DO Sam Cooney Work Phone: [facility] Acute Work Phone: Start: 03-05-2024 End: 03-09-2024 Evaluation and management of inpatient DO Sam Cooney Work Phone: [facility]-3 [place] [facility] Work Phone: Start: 03-05-2024 End: 03-05-2024 Admission to same day surgery center DO Sam Cooney Work Phone: [facility] Ctr-CT Scan Main Mobile Work Phone: Start: 03-05-2024 End: 03-05-2024 ambulatory DO Sam Cooney Work Phone: [facility] Work Phone: Start: 03-03-2024 Registered Recurring DO Sam Cooney [facility]: [facility] Work Phone: Start: 02-21-2024 End: 02-21-2024 ambulatory DO Sam Cooney Work Phone: [facility] Work Phone: Start: 02-21-2024 End: 02-21-2024 Patient encounter procedure DO Sam Cooney Work Phone: [facility] Ambulatory Work Phone: Start: 02-21-2024 Registered Recurring DO Sam Cooney [facility] Work Phone: Start: 02-11-2024 End: 02-11-2024 ambulatory GRACE VAZQUEZ Not Available Start: 01-15-2024 End: 01-15-2024 ambulatory [facility] Start: 12-28-2023 ambulatory PROTEM Gideon [facility] Start: 12-28-2023 End: 12-29-2023 ambulatory [facility] Start: 12-28-2023 End: 12-28-2023 Subsequent hospital visit by physician Fatemeh [address] [facility] Comment on above: Atrial fibrillation, unspecified type (CMS/HCC) Start: 12-03-2023 End: 12-04-2023 ambulatory Trung FERGUSON Facility:[facility] Start: 12-03-2023 End: 12-03-2023 Patient encounter procedure Trung FERGUSON [facility] Start: 11-20-2023 ambulatory GUNNAR SHAFFER DO Fa cility:[id number] Start: 11-07-2023 End: 11-07-2023 ambulatory CAMILA ZEPEDA MD Facility:[id number] Start: 11-06-2023 Chart abstracting Kylee Arreguin DPM Work Phone: [facility] Start: 10-22-2023 End: 10-22-2023 ambulatory [facility] Start: 10-22-2023 End: 10-22-2023 Encounter for preprocedural cardiovascular examination [facility] Start: 10-22-2023 End: 10-22-2023 Office outpatient visit 25 minutes Za Hernández MD Work Phone: [facility] Comment on above: Unspecified mood (af fective) disorder (CMS/HCC) (Primary Dx); Paroxysmal atrial fibrillation (CMS/HCC); Former smoker; Encounter for pre-operative cardiovascular clearance; Presence of Watchman left atrial appendage closure device; Paroxysmal atrial fibrillation with RVR (CMS/HCC); Mixed hyperlipidemia; Primary hypertension; Pain in joint of left shoulder Start: 10-22-2023 End: 10-22-2023 Patient encounter status Za Hernández MD Work Phone: [facility] Work Phone: Start: 09-10-2023 End: 09-10-2023 ambulatory DO Sam Cooney Work Phone: [facility] Work Phone: Start: 09-10-2023 End: 09-10-2023 Patient encounter procedure DO Sam Cooney Work Phone: [facility]-Pacemaker Check Start: 08-28-2023 End: 08-28-2023 Subsequent hospital visit by physician Ryan Cobb MD Work Phone: [facility] Comment on above: Atrial fibrillation (CMS/HCC) (Primary Dx); Chronic atrial fibrillation, unspecified (CMS/HCC); Presence of Watchman left atrial appendage closure device Start: 08-24-2023 Evaluation and manag ement of inpatient RYAN Ocampo [facility] Start: 08-22-2023 End: 08-22-2023 ambulatory RYAN COBB [facility] Start: 08-22-2023 End: 08-22-2023 Office outpatient new 45 minutes Ryan Cobb MD Work Phone[facility] Comment on above: Paroxysmal atrial fi brillation (CMS/HCC) (Primary Dx) Start: 08-13-2023 End: 08-13-2023 ambulatory YKLEE ARREGUIN Not Available Start: 08-09-2023 End: 08-09-2023 Patient encounter procedure DO Sam Cooney Work Phone: [facility]Pacemaker Check Start: 08-09-2023 End: 08-09-2023 ambulatory DO Sam Cooney Work Phone: [facility] Work Phone: Start: 07-31-2023 End: 08-01-2023 ambulatory PURNIMA DAVIDSON JR Facility:[facility] Start: 07-31-2023 Encounter for other preprocedural examination PURNIMA DAVIDSON JR [facility] Start: 07-31-2023 End: 08-01-2023 ambulatory SHERLEY CHAVEZ Not Available Start: 07-09-2023 End: 07-10-2023 ambulatory Trung FERGUSON Facility:[facility] Start: 07-09-2023 End: 07-09-2023 ambulatory Sam Cooney Facility:[facility] Start: 07-09-2023 End: 07-09-2023 Patient encounter procedure Trung FERGUSON [facility] Start: 06-11-2023 Office outpatient vi sit 25 minutes Sam Cooney Work Phone: [facility] DO Work Phone: Start: 06-11-2023 ambulatory ZA HERNÁNDEZ Facility:[id number] Start: 06-07-[address] Sam Cooney Facility:[id number] Start: 06-07-2023 End: 06-07-2023 Patient encounter procedure DO [place] Caldwell Work Phone: [facility]-Pacemaker Check Start: 06-07-2023 End: 06-07-2023 ambulatory DO Sam Caldwell Work Phone: [facility] Work Phone: Start: 05-08-[address] Sam Cooney Facility:[id number] Start: 05-07-2023 End: 05-07-2023 Patient encounter procedure DO Sam Caldwell Work Phone: [facility]Pacemaker Check Start: 05-07-2023 End: 05-07-2023 ambulatory DO Sam Caldwell Work Phone: [facility] Work Phone: Start: 04-03-2023 End: 04-04-2023 ambulatory CHARLOTTE BAKER Facility:[facility] Start: 04-03-2023 End: 04-03-2023 Patient encounter procedure CHARLOTTE BAKER [facility] [employer] Start: 02-26-2023 ambulatory Ms. Loulou Arreguin Facility: Start: 02-26-2023 Office outpatient vi sit 25 minutes [place] Gideon Caldwell Work Phone: [facility] DO Work Phone: Start: 02-26-2023 Patient encounter procedure Sma Meneses Caldwell Work Phone: [facility] 250 DO Work Phone: Start: 01-23-2023 End: 01-24-2023 ambulatory DO Sam Caldwell Work Phone: [facility] Work Phone: Start: 01-23-2023 End: 01-23-2023 Patient encounter procedure HCARLOTTE BAKER [facility] [employer] Start: 01-22-2023 End: 01-22-2023 Patient encounter procedure DO Sam Cooney Work Phone: [facility]-Pacemaker Check Start: 01-22-2023 End: 01-22-2023 ambulatory DO Sam Cooney Work Phone: [facility] Work Phone: Start: 01-01-2023 End: 01-02-2023 ambulatory Trung FERGUSON Facility:[facility] Start: 01-01-2023 End: 01-01-2023 Patient encounter procedure Trung FERGUSON [facility] Start: 12-08-[address] Sam Cooney Facility:[id number] Start: 12-08-2022 End: 12-08-2022 ambulatory DO Sam Eros Work Phone: [facility] Work Phone: Start: 12-08-2022 End: 12-08-2022 Patient encounter procedure DO Sam Cooney Work Phone: [facility]-Pacemaker Check Start: 11-17-2022 Patient encounter procedure [place] Gideon Eros Work Phone: [facility] 250 DO Work Phone: Start: 11-06-2022 End: 11-06-2022 Patient encounter procedure Trung FERGUSON [facility] Start: 11-03-2022 End: 01-10-[address] SAM COONEY Facility:H1 Start: 11-03-2022 End: 11-03-2022 Patient encounter procedure Trung FERGUSON [facility] Start: 10-17-2022 End: 10-17-2022 Lab Drop off CHARLOTTE BAKER [facility] Start: 10-17-2022 End: 10-17-2022 Patient encounter procedure CHARLOTTE BAKER [facility] Start: 10-09-2022 ambulatory Ms. Loulou Quevedo Hurtartem Arreguin Facility: Start: 10-09-2022 FUV, Provider: Loulou Myles, Status: Pen, Time: 12:30 PM [place] E Caldwell Work Phone: [facility] DO Work Phone: Start: 10-09-2022 Office outpatient vi sit 15 minutes Sam E Caldwell Work Phone: [facility] DO Work Phone: Start: 10-09-2022 Patient encounter procedure [place] E Caldwell Work Phone: [facility] DO Work Phone: Start: 10-02-2022 ambulatory ZA HERNÁNDEZ Facility:[id number] Start: 10-02-2022 Office outpatient vi sit 25 minutes Sam E Caldwell Work Phone: [facility] 250 DO Work Phone: Start: 10-02-2022 End: 10-02-2022 Patient encounter procedure Trung FERGUSON [facility] Start: 09-19-2022 Rx Renewal Sam Meneses Brist ol Work Phone: [facility] 250 DO Work Phone: Start: 09-11-2022 Office outpatient vi sit 10 minutes [place] E Caldwell Work Phone: [facility] 250 DO Work Phone: Start: 09-11-2022 ambulatory ZA HERNÁNDEZ Facility:[id number] Start: 09-04-2022 End: 09-04-2022 Patient encounter procedure Trung FERGUSON [facility] Start: 09-02-2022 Encounter for preprocedural laboratory examination DR TRUNG FERGUSON . [facility] Start: 08-31-2022 End: 09-01-[address] TRUNG FERGUSON . Facility:H1 Start: 08-29-2022 End: 08-30-[address] TRUNG FERGUSON . Facility:H1 Start: 08-29-2022 End: 08-30-2022 Encounter for preprocedural laboratory examination DR TRUNG FERGUSON . Facility:H1 Start: 08-28-2022 Office outpatient vi sit 25 minutes Sam Cooney Work Phone: [facility] 250 DO Work Phone: Start: 08-25-2022 End: 08-26-[address] SAM COONEY Facility:H1 Start: 08-22-2022 End: 08-23-[address] TRUNG FERGUSON . Facility:H1 Start: 08-14-2022 Telephone encounter Sam cerna Work Phone: [facility] 250 DO Work Phone: Start: 07-20-[address] TRUNG FERGUSON . Fac ility:H1 Start: 07-14-2022 End: 07-15-[address] TRUNG FERGUSON . Facility:H1 Start: 06-30-2022 Encounter for preprocedural cardiovascular examination DR TRUNG FERGUSON . [facility] Start: 06-30-2022 Encounter for preprocedural laboratory examination DR TRUNG FERGUSON . [facility] Start: 06-30-2022 End: 07-01-[address] TRUNG FERGUSON . Facility:H1 Start: 06-28-2022 End: 06-29-[address] TRUNG FERGUSON . Facility:H1 Start: 06-28-2022 End: 06-29-2022 Encounter for preprocedural cardiovascular examination DR TRUNG FERGUSON . Facility:H1 Start: 06-15-2022 Office outpatient vi sit 15 minutes Sam Cooney Work Phone: [facility] DO Work Phone: Start: 06-15-2022 Patient encounter procedure Sam Cooney Work Phone: [facility] 250 DO Work Phone: Start: 04-24-2022 End: 05-10-2022 Pre-admission assessment Trung FERGUSON [facility] Start: 04-24-2022 End: 04-24-2022 Patient encounter procedure Trung FERGUSON [facility] Start: 04-12-2022 Telephone encounter Sam Peterson ristol Work Phone: [facility] 250 DO Work Phone: Start: 04-08-2022 End: 04-08-[address] CONCHITA ARREGUIN Facility: Start: 02-17-2022 End: 04-05-[address] SAM COONEY Facility:H1 Start: 01-23-2022 End: 01-23-2022 Patient encounter procedure Trung FERGUSON [facility] Start: 08-31-2021 Office outpatient vi sit 15 minutes Sam Cooney Work Phone: [facility] 250 DO Work Phone: Start: 02-07-2021 End: 02-07-2021 Patient encounter procedure Sam Cooney Work Phone: -[facility] Start: 01-07-2021 End: 01-07-2021 Patient encounter procedure Sam Cooney Work Phone: -[facility]emaker Check Start: 10-13-2020 End: 10-14-2020 Patient encounter procedure JAVIER JUNIOR SANTOS [facility] Start: 10-13-2020 End: 10-13-2020 Subsequent hospital visit by physician Sam Cooney [facility] Start: 10-08-2020 End: 10-08-2020 Patient encounter procedure Sam Cooney -Pacemaker Check Start: 2020 End: 2020 Patient encounter procedure Sam Cooney -Lab Main Mobile Start: 09-15-2020 End: 09-15-2020 Patient encounter procedure Sam Cooney -CT [address] Start: 07-07-2020 End: 07-07-2020 Patient encounter procedure Sam Cooney -Pacemaker Check Start: 02-04-2020 End: 02-07-2020 Patient encounter procedure JAVIER JUNIOR SANTOS [facility] Start: 02-04-2020 End: 02-06-2020 Subsequent hospital visit by physician [facility]y [facility] Rm [address] [facility] CT Scan Comment on above: 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) Start: 12-21-2019 End: 12-22-2019 [facility] Medical Equipment Procedure Code Equipment Code Equipment Origin al Text Equipment Identifier Dates [id number] [id number] Start: 04-07-2020 System, Access, Fxd Dbl Curve, Watchman - [id number] Start: 08-28-2023 Device, Closure, 27mm Watchman Flx Laac - [id number] Start: 08-28-2023 Goals Date Patient Goal Desired Activity /State Immunizations Immunization Date Immunization Notes Care Provider Fa richmond 10-09-2022 Fluzone High-Dose Quadrivalent 0.7 ML Intramuscular Suspension Prefilled Syringe Sam Cooney Work Phone: -[facility] DO Work Phone: 10-09-2022 influenza virus vacc ine, unspecified formulation Trung FERGUSON [facility] 10-09-2021 Fluzone High-Dose Quadrivalent 0.7 ML Intramuscular Suspension Prefilled Syringe [place] Caldwell Work [facility]: [facility] Work Phone: 10-09-2021 influenza virus vacc ine, unspecified formulation [employer] [facility] 11-29-2020 Christina COVID-19 Vac cine 0.5 ML Intramuscular Suspension Sma E Caldwell Work Phone: [facility] 09-06-2019 influenza virus vacc ine, unspecified formulation [employer] [facility] 09-06-2019 influenza, high dose seasonal, preservative-free Sam E [facility]dwell [facility] Work Phone: 06-24-2019 influenza virus vacc ine, unspecified formulation [employer] [facility] 06-24-2019 influenza, high dose seasonal, preservative-free [place] Caldwell [facility]: [facility] Work Phone: 08-04-2018 influenza virus vacc ine, unspecified formulation [employer] [facility] 08-04-2018 influenza, high dose seasonal, preservative-free [place] Caldwell Work [facility]: [facility] Work Phone: 05-25-2018 influenza virus vacc ine, unspecified formulation [employer] [facility] 05-25-2018 influenza, seasonal, injectable Sam E Caldwell Work Phone: [facility] 250 DO Work Phone: 09-21-2017 influenza virus vacc ine, unspecified formulation Trung FERGUSON [facility] 09-21-2017 Seasonal trivalent influenza vaccine, adjuvanted, preservative free Sam E Caldwell Work Phone: [facility] 250 DO Work Phone: 09-24-2016 pneumococcal polysaccharide vaccine, 23 valent Sam E Caldwell Work Phone: [facility] 10-19-2015 pneumococcal conjuga te vaccine, 13 valent [place] Caldwell Work Phone: [facility] 07-12-2015 pneumococcal polysaccharide vaccine, 23 valent [place] E Caldwell Work Phone: [facility] 2014 zoster vaccine, live Sam E Caldwell Work Phone: [facility] 08-08-2011 influenza virus vacc ine, unspecified formulation Trung FERGUSON [facility] 08-08-2011 influenza, seasonal, injectable [place] E Caldwell Work Phone: [facility] 250 DO Work Phone: 07-14-2009 influenza virus vacc ine, whole virus [place] E Caldwell Work Phone: [facility] 250 DO Work Phone: 07-14-2009 influenza, whole Trung LACI ERS [facility] Medications Current Medications Medication Drug Class(es) [...] three times daily as needed for pain Srwpzkteag-RGTY-Nbccmkct 50-325-40 MG Or al Tablet TAKE 1 TABLET 3 TIMES DAILY NEEDED FOR PAIN. Quantity: 0 Refills: 0 Ordered: 18-Jul-2021 DO Start : 18-Jan-2021 Active Start: 05-19-2019 butalbital-sadie taminophen-caffeine (FIORICET, ESGIC) 50-325-40 MG per tablet Take by mouth 0 05/19/2019 Active Start: 05-19-2019 End: 02-21-2024 Mrfnuzuqnv-Jkjjwfzxladip-Cbz f Discontinued 1 TAB PO As Directed May 19, 2019 12:00am February 21, 2024 2:58pm [id number] 200 actuat albuterol 0.09 mg/actuat metered dose [...] 90 Refills: 3 Ordered: 15-Jun-2022 Edgar BETANCOURT, [facility] Active aspirin 325 mg / butalbital 50 mg / caffeine 40 mg oral capsule (3 sources) Platelet Aggregation Inhibitor, Barbiturate, Nonsteroidal Anti-inflammatory Drug, Central Nervous System Stimulant, Methylxanthine Start: 02-12-2009 take 1 capsule by mouth every four hours as needed rwoivhmztq-fhzupxr-yeqhnwus (Fiorinal) 50-325-40 mg capsule Take 1 capsule [...] Start: 01-21-2021 take 1 capsule by mo [facility] once daily FLUoxetine (PROzac) 20 [...] weeks. if no improvement contact office[id number], 175, cm, 01/23/23 14:14:00 EDT, Height/Length Dosing, 81, kg, 01/23/23 14:14:00 EDT, Weight Dosing Start Date: 01/23/23 Stop Date: 02/13/23 Status: Ordered lenalidomide 25 mg oral capsule (4 sources) Thalidomide Analog Start: 03-07-2024 Lenalidomide (Revlimid) 25 mg capsule Active 25 MG PO Daily March 07, 2024 12:00am TAKE ONE DAILY FOR 21 DAYS AND 7 DAYS OFF.ADULT MALE AUTH#[id number] levothyroxine sodium 0.125 mg oral tablet (20 sources) l-Thyroxine take 1 tablet by mouth once daily before mealtime levothyroxine (Synthroid, Levoxyl) 125 mcg tablet Take 1 tablet (125 mcg) by mouth once daily in the morning. Take before meals. 0 Active levothyroxine (S ynthroid, Levoxyl) 50 MCG tablet Take 90 mcg by mouth. 0 Active take 1 capsule by mo [facility] once daily before breakfast Levothyroxine [...] hydrochloride 10 mg oral tablet (16 sources) C-mjeywn-B-aspartate Receptor Antagonist Start: 02-21-2024 take 10 mg [...] DAY Quantity: 90 Refills: 3 Ordered: 17-Nov-2022 Alton Hernández MDtha Start : 17-Nov-2022 Active new start ondansetron [...] 0 Start Date: 07/09/23 Status: Ordered thyroid (penitentiary) 90 mg oral tablet (20 sources) Start: 02-27-2020 take 1 tablet by mouth once daily in the morning Thyroid (Pork) ([place] Thyroid) 90 mg tablet Active 90 MG PO Every morning February 27, 2020 12:00am Start: 12-29-2019 [place] Thyroid Oral, Daily, Refills(s) 0 Start Date: [...] 12:00am Start: 07-09-2023 take 1 capsule by mo ut every twenty-four hours in the morning tolterodine LA (Detrol LA) 2 MG 24 hr capsule Take 2 mg by mouth in the morning. 0 07/09/2023 Active Start: 01-23-2022 take 1 capsule by mo [facility] every other day tolterodine 4 mg Cap-ER 4 mg = 1 cap(s), Oral, Every other day, # 30 cap(s), Refills(s) 6, Pharmacy: [facility] #[id number], 175, cm, 01/23/22 13:07:00 EDT, Height/Length Dosing, 83, kg, 01/23/22 13:07:00 EDT, Weight Dosing Start Date: 01/23/22 Status: Ordered Start: 01-23-2022 take 1 capsule by mouth once d aily tolterodine 4 mg Cap-ER 4 mg = 1 cap(s), Oral, Daily, # 30 cap(s), Refills(s) 6, Pharmacy: [facility]/pharmacy #[id number], 175, cm, 01/23/22 13:07:00 EDT, Height/Length Dosing, 83, kg, 01/23/22 13:07:00 EDT, Weight Dosing Start Date: 01/23/22 Status: Ordered Start: 09-27-2020 tolterodine 2 mg Cap-ER 2 mg = 1 cap(s), Oral, As Directed, Take one cap in the morning and one at dinnertime., # 60 cap(s), Refills(s) 11, Pharmacy: [facility]/pharmacy #[id number], 175, cm, 12/03/23 15:27:00 EDT, [...] 02/05/2023 08/28/2023 Discontinued (Entered in Error) amoxicillin ([place] xil) 500 mg capsule Take 1 capsule [...] procedure, # 2 tab(s), Refills(s) 0, Pharmacy: [facility]/pharmacy #[id number], 175, cm, 01/23/22 13:07:00 EDT, [...] Apply as needed prior to self dilation, [facility]/pharmacy #[id number], 175, cm, 11/03/22 13:03:00 EST, Height/Length Dosing, 82.8, kg, 11/03/22 13:03:00 EST, Weight Dosing Start Date: 12/01/22 Stop Date: 12/01/22 Status: Ordered Start: 12-01-2022 End: 12-01-2022 Glydo 2% topical gel with ap plicator 11 mL 0.2 gm, 10 mL, Topical, As Directed, 30 mL, Refill(s) 6, Apply as needed prior to self dilation, [facility]/pharmacy #[id number], 175, cm, 11/03/22 13:03:00 EST, Height/Length Dosing, 82.8, kg, 11/03/22 13:03:00 EST, Weight Dosing Start Date: 12/01/22 Stop Date: 12/01/22 Status: Ordered Start: 12-01-2022 End: 12-01-2022 Glydo 2% topical gel with ap plicator 11 mL 0.2 gm, 10 mL, Topical, As Directed, 30 mL, Refill(s) 6, Apply as needed prior to self dilation, [facility]/pharmacy #[id number], 175, cm, 11/03/22 13:03:00 EST, Height/Length Dosing, 82.8, kg, 11/03/22 13:03:00 EST, Weight Dosing Start Date: 12/01/22 Stop Date: 12/01/22 Status: Ordered Start: 12-01-2022 End: 12-01-2022 Glydo 2% topical gel with ap plicator 11 mL 0.2 gm, 10 mL, Topical, As Directed, 30 mL, Refill(s) 6, Apply as needed prior to self dilation, [facility]/pharm[facility] #[id number], 175, cm, 11/03/22 13:03:00 EST, [...] 12:00am March 05, 2024 6:44pm Thyroid (Pork) ([place] Thyroid) 90 mg tablet (5 sources) Start: 02-27-2020 End: 03-05-2024 take 1 tablet by mouth once daily in the morning Thyroid (Pork) ([place] Thyroid) 90 mg tablet Discontinued 90 MG PO Every morning February 27, 2020 12:00am March 05, 2024 6:44pm Vitamin B-12 TABS (2 sources) Vitamin B-12 TAB S TAKE 1 TABLET DAILY. Quantity: 0 Refills: 0 Ordered: 11-Jun-2023 DO Active Payers Date Payer Category Payer Self-pay [id number] 2022 Medicare [id number] 2022 Unknown 2019 Medicare MEDICARE ILROA D MEDICARE xxxxxxxxxxx 2019-Present [phone] [place] [address] xxxxxxxxxxx [id number] 2019 Unknown [employer] [place] MEDIC[employer] SUPP [id number] 2019-Present [phone] ATTN INDIVIDUAL CLAIMS [address] [place] [address] [id number] 2019 Unknown [id number] 2012 Medicare [id number] 1959 Medicare [id number] 1959 Medicare [id number] 1959 Unknown [id number] 1947 Unknown [id number] 2.16.840.1.149735.3.579.2 .175 1947 Unknown [id number] 2.16.840.1.260684.3.579.2 .175 1947 Unknown [id number] 2.16.840.1.133538.3.579.2 .175 1947 Unknown [id number] 2.16.840.1.782962.3.579.2 .593 1947 Unknown [id number] 2.16.840.1.702193.3.579.2 .593 1947 Unknown [id number] 2.16.840.1.117408.3.579.2 .593 1947 Unknown [id number] 2.16.840.1.964618.3.579.2 .593 1947 Unknown [id number] 2.16.840.1.548636.3.579.2 .593 1947 Unknown [id number] 2.16.840.1.309098.3.579.2 .593 1947 Unknown [id number] 2.16.840.1.809140.3.579.2 .593 1947 Unknown [id number] 2.16.840.1.436093.3.579.2 .593 1947 Unknown [id number] 2.16.840.1.327491.3.579.2 .593 1947 Unknown [id number] 2.16.840.1.053949.3.579.2 .593 1947 Unknown [id number] 2.16.840.1.310133.3.579.2 .593 1947 Unknown [id number] 2.16.840.1.762247.3.579.2 .356 1947 Unknown [id number] 2.16.840.1.685600.3.579.2 .356 1947 Unknown [id number] 2.16.840.1.771294.3.579.2 .356 1947 Unknown [id number] 2.16.840.1.326405.3.579.2 .356 1947 Unknown [id number] 2.16.840.1.587982.3.579.2 .356 1947 Unknown [id number] 2.16.840.1.448412.3.579.2 .356 1947 Unknown [id number] 2.16.840.1.922057.3.579.2 .356 1947 Unknown [id number] 2.16.840.1.045227.3.579.2 .356 1947 Unknown [id number] 2.16.840.1.652334.3.579.2 .356 1947 Unknown [id number] 2.16.840.1.231613.3.579.2 .1244 1947 Unknown [id number] 2.16.840.1.492386.3.579.2 .159 1947 Unknown [id number] 2.16.840.1.698564.3.579.2 .159 1947 Unknown [id number] 2.16.840.1.891093.3.579.2 .727 1947 Unknown [id number] 2.16.840.1.627881.3.579.2 .727 1947 Unknown [id number] 2.16.840.1.167640.3.579.2 .727 1947 Unknown [id number] 2.16.840.1.859742.3.579.2 .727 1947 Unknown [id number] 2.16.840.1.177349.3.579.2 .727 1947 Unknown [id number] 2.16.840.1.729327.3.579.2 .727 1947 Unknown [id number] 2.16.840.1.110897.3.579.2 .1246 1947 Unknown [id number] 2.16.840.1.517141.3.579.2 .1246 1947 Unknown [id number] 2.16.840.1.299547.3.579.2 .1286 1947 Unknown [id number] 2.16.840.1.168028.3.579.2 .1286 1947 Unknown [id number] 2.16.840.1.602109.3.579.2 .1259 1947 Unknown [id number] 2.16.840.1.366540.3.579.2 .1259 1947 Unknown [id number] 2.16.840.1.902309.3.579.2 .1259 1947 Unknown [id number] 2.16.840.1.935661.3.579.2 .1245 1947 Unknown [id number] 2.16.840.1.315867.3.579.2 .1245 Private Health Insurance Unknown [id number] 2.16.840.1.617116.3.579.2 .531 Unknown [id number] 2.16.840.1.824072.3.579.2 .531 Unknown [id number] 2.16.840.1.379551.3.579.2 .531 Unknown [id number] 2.16.840.1.639806.3.579.2 .531 Unknown [id number] 2.16.840.1.356110.3.579.2 .531 Unknown [id number] 2..840.1.021667.3.579.2 .531 Unknown [id number] 2..840.1.777130.3.579.2 .531 Unknown [id number] 2.16.840.1.800432.3.579.2 .531 Plan of Treatment Date Care Activity Detail Author Start: 05-20-2033 DTaP/Tdap/Td Vaccine s (2 - Td or Tdap) DTaP/Tdap/Td Vaccines (2 - Td or Tdap) [facility] Start: 10-13-2024 End: 10-13-2024 Patient encounter procedure 10/13/2024 10:30 AM EST Office Visit [facility] [address] [facility] [address] [place] [address] Za Hernández MD [address] [place] [address] [address] [place] [address] [facility] Start: 07-31-2024 Thyroid stimulating hormone measurement TSH Level [facility] Start: 04-21-2024 End: 04-21-2024 Patient encounter procedure 04/21/2024 10:30 AM EDT Office Visit [facility] [address] [facility] [address] [place] [address] Loulou Arreguin, PROOFING MACHINE OPERATOR-ANDROID PROGRAMMER [address] [facility] [address] [place], [place] [id number] [facility] Start: 03-20-2024 Patient referral [facility] Work Phone: Start: 03-20-2024 Comprehensive metabo lic 2000 panel - Serum or Plasma [facility] Start: 03-20-2024 [facility] Start: 03-20-2024 [facility] Start: 03-20-2024 [facility] Start: 03-15-2024 [facility] Start: 03-14-2024 End: 03-14-2024 [facility] Start: 03-13-2024 End: 03-13-2024 [facility] Start: 03-12-2024 [facility] Start: 03-11-2024 [facility] Start: 03-10-2024 [facility] Start: 03-09-2024 End: 03-09-2024 [facility] Start: 03-08-2024 [facility] Start: 03-07-2024 End: 03-07-2024 [facility] Start: 03-06-2024 End: 03-07-2024 [facility] Start: 03-05-2024 Referral to occupational therapist [facility] Start: 03-05-2024 Physical therapy procedure [facility] Start: 03-05-2024 Hospital admission [facility] Start: 03-05-2024 Referral to oncologist [facility] Start: 03-05-2024 Extraction of Iliac Bone Marrow, Percutaneous Approach, Diagnostic Extraction of Iliac Bone Marrow, Percutaneous Approach, Diagnostic [facility] Start: 03-05-2024 End: 03-06-2024 [facility] Start: 03-03-2024 [facility] Start: 11-20-2023 End: 11-20-2023 Patient encounter procedure 11/20/2023 7:00 AM EST Procedure Visit [facility] [address] [address] [facility] Start: 11-06-2023 End: 11-06-2023 Patient encounter procedure 11/06/2023 11:30 AM EST Procedure Visit [facility] [address] [place] [phone] Kylee Arreguin DPM [address] [place] [address] [facility] Start: 10-22-2023 End: 10-22-2024 Comprehensive metabolic 2000 panel - Serum or Plasma Comprehensive Metabolic Panel Lab Routine Paroxysmal atrial fibrillation (CMS/HCC) Expected: 10/22/2023 (Approximate), Expires: 10/22/2024 [facility] Service Area Work Phone: Comment on above: Expected: 10/22/2023 (Approximate), Expires: 10/22/2024 Start: 10-22-2023 End: 10-22-2024 Lipid 1996 panel - Serum or Plasma Lipid Panel Lab Routine Paroxysmal atrial fibrillation (CMS/HCC) Unspecified mood (affective) disorder (CMS/HCC) Former smoker Encounter for pre-operative cardiovascular clearance Mixed hyperlipidemia Expected: 10/22/2023 (Approximate), Expires: 10/22/2024 [facility] Work Phone: Comment on above: Expected: 10/22/2023 (Approximate), Expires: 10/22/2024 Start: 09-20-2023 End: 09-20-2023 Patient encounter procedure 09/20/2023 10:30 AM EST Office Visit [facility] [address] [facility] [address] [place] [address] Za Hernández MD [address] [place] [address] [address] [place] [address] [facility] Start: 08-28-2023 End: 08-28-2023 Admission to same day surgery center 08/28/2023 11:30 AM EST - 08/28/2023 1:30 PM EST Surgery [facility] [address] [phone] [place] [address] [place] [address] Left Atrial Appendage Closure [99261 (CPT )] [facility] Comment on above: Left Atrial Appendag e Closure [48794 (CPT )] Start: 08-28-2023 Subsequent hospital visit by physician 08/28/2023 11:30 AM EST Hospital Encounter [facility] [address] [phone] [place] [address] [place] [address] Atrial fibrillation (CMS/HCC) [facility] Comment on above: Atrial fibrillation (CMS/HCC) Start: 08-27-2023 End: 08-27-2023 Patient encounter procedure 08/27/2023 9:30 AM EST Office Visit [facility] [address] [facility] [address] [place] [address] Za Hernández MD [address] [facility] [address] [place] [address] [facility] Start: 06-11-2023 FUV, Provider: Za Hernández, Status: Pen, Time: 10:45 AM FUV, Provider: Za Hernández, Status: Pen, Time: 10:45 AM [facility] 250 DO Work Phone: Start: 05-25-2023 COVID-19 Vaccine ( season) COVID-19 Vaccine ( season) [facility] Start: 05-25-2023 Influenza vaccination Influenza Vacc ine (#1) [facility] Start: 02-26-2023 FUV, Provider: Za Hernández, Status: Pen, Time: 11:15 AM FUV, Provider: Za Hernández, Status: Pen, Time: 11:15 AM [facility] 250 DO Work Phone: Start: 10-09-2022 FUV, Provider: Loulou Myles, Status: Pen, Time: 12:30 PM FUV, Provider: Loulou Myles, Status: Pen, Time: 12:30 PM [facility] 250 DO Work Phone: Start: 10-02-2022 FUV, Provider: Za Hernández, Status: Pen, Time: 3:15 PM FUV, Provider: Za Hernández, Status: Pen, Time: 3:15 PM -[facility] 250 DO Work Phone: Start: 09-21-2022 FUV, Provider: Za Hernández, Status: Pen, Time: 9:45 AM FUV, Provider: Za Hernández, Status: Pen, Time: 9:45 AM -[facility] 250 DO Work Phone: Start: 09-11-2022 NURSEVST, Provider: JACQUELINE GONZALEZ IMPREGNATING TANK OPERATOR 1,[id number], Status: Pen, Time: 1:00 PM NURSEVST, Provider: JACQUELINE GONZALEZ IMPREGNATING TANK OPERATOR 1,[id number], Status: Pen, Time: 1:00 PM -[facility] 250 DO Work Phone: Start: 08-28-2022 FUV, Provider: Za Hernández, Status: Pen, Time: 12:45 PM FUV, Provider: Za Hernández, Status: Pen, Time: 12:45 PM -[facility] 250 DO Work Phone: Start: 08-10-2022 BPCHECK, Provider: Lashon GONZALEZ IMPREGNATING TANK OPERATOR 1,[id number], Status: Pen, Time: 10:00 AM BPCHECK, Provider: JACQUELINE GONZALEZ IMPREGNATING TANK OPERATOR 1,[id number], Status: Pen, Time: 10:00 AM [facility] 250 DO Work Phone: Start: 08-01-2022 FUV, Provider: Erick Wise, Status: Pen, Time: 9:00 AM FUV, Provider: Erick Wise, Status: Pen, Time: 9:00 AM -[facility] 250 DO Work Phone: Start: 06-15-2022 FUV, Provider: Za Hernández, Status: Pen, Time: 9:45 AM FUV, Provider: Za Hernández, Status: Pen, Time: 9:45 AM [facility] 250 DO Work Phone: Start: 10-03-2021 FUV, Provider: Loulou Myles, Status: Pen, Time: 10:00 AM FUV, Provider: Loulou Myles, Status: Pen, Time: 10:00 AM [facility] 250 DO Work Phone: Start: 10-03-2021 STRESS NUC, Provider : KAYODE HHVI NUCLEAR 01,[id number], Status: Pen, Time: 8:00 AM STRESS NUC, Provider: KAYODE HHVI NUCLEAR 01,[id number], Status: Pen, Time: 8:00 AM [facility] 250 DO Work Phone: Start: 04-13-2021 End: 04-13-2021 Virtual Visit 04/13/2021 Virtual Visit Neurology Javier Shelton MD [address] [id number] [facility] Start: 01-24-2021 COVID-19 Vaccine (2 - Booster for Christina series) COVID-19 Vaccine (2 - Booster for Christina series) [facility] Start: 12-20-2020 Creatinine measurement Creatinine mo nitoring [place], [place] Start: 12-20-2020 HbA1c (Bld) [Mass fraction] A1C test (Diabetic or Prediabetic) [place], [place] Start: 12-20-2020 Lipid panel Lipid screen [place], [place] Start: 12-20-2020 Potassium monitoring Potassium monit oring [place], [place] Start: 08-11-2020 End: 08-11-2020 Office Visit 08/11/2020 Office Visit Neurology Javier Shetlon MD [address] [id number] [facility] Start: 05-25-2020 Influenza vaccination [place], [place] Start: 12-22-2019 Annual Wellness Visi t (AWV) Annual Wellness Visit (AWV) [place], [place] Start: 12-02-2014 Zoster Vaccines (2 o f 3) Zoster Vaccines (2 of 3) [facility] Start: 2012 Abdominal aortic aneurysm screening Abdominal Aortic Aneurysm (AAA) Screening [facility] Start: 2012 Pneumococcal 65+ yea rs Vaccine (1 of 1 - PPSV23) Pneumococcal 65+ years Vaccine (1 of 1 - PPSV23) [place], [place] Start: 1997 Screening for malign ant neoplasm of colon Colon cancer screen colonoscopy [place], [place] Start: 1997 Shingles Vaccine (1 of 2) Shingles Vaccine (1 of 2) [place], [place] Start: 1969 DTaP/Tdap/Td Vaccine s (1 - Tdap) DTaP/Tdap/Td Vaccines (1 - Tdap) [facility] Start: 1966 DTaP/Tdap/Td vaccine (1 - Tdap) DTaP/Tdap/Td vaccine (1 - Tdap) [place], [place] Start: 1965 Diabetes mellitus screening Diabetes Screening [facility] Start: 1965 Hepatitis C screening Hepatitis C [facility] Start: 1947 Abdominal aortic aneurysm screening AAA screen [place], [place] Start: 1947 Hepatitis C screening Hepatitis C [place], [place] Start: 1947 Lipid panel Lipid Panel [facility] Start: 1947 Medicare Annual Wellness Visit Medicare Annual Wellness Visit (AWV) [facility] Start: 1947 Screening for malign ant neoplasm of colon [facility] Albumin/Globulin ratio [facility] Angiotensin converti ng enzyme [Enzymatic activity/volume] in Serum or Plasma [facility] Anion gap measurement [facility] End: 08-28-2023 Basic metabolic 2000 panel - Serum or Plasma Basic metabolic panel Lab STAT STAT (Lab) for 1 Occurrences starting 08/28/2023 until 08/28/2023 [facility] Service Area Work Phone: Comment on above: STAT (Lab) for 1 Occ urrences starting 08/28/2023 until 08/28/2023 End: 08-31-2023 Basic metabolic 2000 panel - Serum or Plasma Basic Metabolic Panel Lab Routine Morning draw (Lab) for 3 Occurrences starting 08/29/2023 until 08/31/2023 [facility] Work Phone: Comment on above: Morning draw (Lab) f or 3 Occurrences starting 08/29/2023 until 08/31/2023 Basophils [#/volume] in Blood by Automated count [facility] Basophils/100 leukocytes in Blood by Automated count [facility] End: 08-28-2023 CBC W Auto Differential panel - Blood CBC and Auto Differential Lab STAT STAT (Lab) for 1 Occurrences starting 08/28/2023 until 08/28/2023 [facility] Work Phone: Comment on above: STAT (Lab) for 1 Occ urrences starting 08/28/2023 until 08/28/2023 End: 08-31-2023 CBC W Auto Differential panel - Blood CBC and Auto Differential Lab Routine Morning draw (Lab) for 3 Occurrences starting 08/29/2023 until 08/31/2023 [facility] Work Phone: Comment on above: Morning draw (Lab) f or 3 Occurrences starting 08/29/2023 until 08/31/2023 Comprehensive metabo lic 2000 panel - Serum or Plasma [facility] Comprehensive metabo lic 2000 panel - Serum or Plasma [facility] Comprehensive metabo lic 2000 panel - Serum or Plasma [facility] Comprehensive metabo lic 2000 panel - Serum or Plasma [facility] Copper measurement [facility] End: 08-28-2023 ECG 12 lead [facility] Work Phone: Comment on above: Once for 1 Occurrenc es starting 08/28/2023 until 08/28/2023 As needed until disc ontinued starting 08/28/2023 End: 08-30-2023 ECG 12 lead daily ECG 12 lead daily ECG Routine Daily for 3 Days starting 08/28/2023 until 08/30/2023, 1 completed [facility] Work Phone: Comment on above: Daily for 3 Days sta rting 08/28/2023 until 08/30/2023, 1 completed Eosinophils/100 leukocytes in Blood by Automated count [facility] Erythrocyte distribution width [Ratio] by Automated count [facility] Erythrocytes [#/volu me] in Blood [facility] Globulin [Mass/volum e] in Serum [facility] End: 08-31-2023 Glucose [Mass/volume] in Serum or Plasma POCT glucose Point of Care Testing - Docked Device Routine 4 times daily before meals and at bedtime for 3 Days starting 08/28/2023 until 08/31/2023 [facility] Work Phone: Comment on above: 4 times daily before meals and at bedtime for 3 Days starting 08/28/2023 until 08/31/2023 Hematocrit [Volume Fraction] of Blood [facility] Hematocrit [Volume Fraction] of Blood [facility] Hemoglobin [Mass/volume] in Blood [facility] Hemoglobin [Mass/volume] in Blood [facility] Hepatitis B core antibody measurement [facility] Hepatitis B virus surface Ab [Presence] in Serum [facility] End: 08-28-2023 Incentive spirometry Instruct Incentive spirometry Instruct Respiratory Care Routine Once for 1 Occurrences starting 08/28/2023 until 08/28/2023 [facility] Work Phone: Comment on above: Once for 1 Occurrenc es starting 08/28/2023 until 08/28/2023 Leukocytes [#/volume ] corrected for nucleated erythrocytes in Blood by Automated coun [facility] Leukocytes [#/volume ] in Blood [facility] Lymphocytes [#/volum e] in Blood by Automated count [facility] Lymphocytes/100 leukocytes in Blood by Automated count [facility] End: 08-28-2023 Magnesium [Mass/volume] in Serum or Plasma Magnesium Lab STAT STAT (Lab) for 1 Occurrences starting 08/28/2023 until 08/28/2023 [facility] Work Phone: Comment on above: STAT (Lab) for 1 Occ urrences starting 08/28/2023 until 08/28/2023 End: 08-31-2023 Magnesium [Mass/volume] in Serum or Plasma Magnesium Lab Routine Morning draw (Lab) for 3 Occurrences starting 08/29/2023 until 08/31/2023 [facility] Work Phone: Comment on above: Morning draw (Lab) f or 3 Occurrences starting 08/29/2023 until 08/31/2023 MCH [Entitic mass] b y Automated count [facility] MCHC [Mass/volume] b y Automated count [facility] MCV [Entitic volume] by Automated count [facility] Monocytes [#/volume] in Blood by Automated count [facility] Monocytes/100 leukocytes in Blood by Automated count [facility] Neutrophils [#/volum e] in Blood by Automated count [facility] Neutrophils/100 leukocytes in Blood by Automated count [facility] Nucleated erythrocyt es [Presence] in Blood by Automated count [facility] Patient referral [facility] Work Phone: Platelet mean volume [Entitic volume] in Blood by Automated count [facility] Platelets [#/volume] in Blood [facility] End: 08-28-2023 Prothrombin time (PT) Protime-INR Lab STAT STAT (Lab) for 1 Occurrences starting 08/28/2023 until 08/28/2023 [facility] Work Phone: Comment on above: STAT (Lab) for 1 Occ urrences starting 08/28/2023 until 08/28/2023 End: 08-31-2023 Prothrombin time (PT) Protime-INR Lab Routine Morning draw (Lab) for 3 Occurrences starting 08/29/2023 until 08/31/2023 [facility] Work Phone: Comment on above: Morning draw (Lab) f or 3 Occurrences starting 08/29/2023 until 08/31/2023 Rheumatoid factor [Units/volume] in Serum or Plasma [facility] End: 08-28-2023 Structural heart procedure Structural heart procedure Cardiac Cath Routine Atrial fibrillation (CMS/HCC) Once for 1 Occurrences starting 08/28/2023 until 08/28/2023 [facility] Service Area Work Phone: Comment on above: Once for 1 Occurrenc es starting 08/28/2023 until 08/28/2023 Structural heart procedure Structural heart procedure Cardiac Cath Routine Atrial fibrillation (CMS/HCC) 08/28/2023 12:31 PM [facility] Work Phone: End: 08-28-2023 [facility] Work Phone: Comment on above: Once for 1 Occurrenc es starting 08/28/2023 until 08/28/2023 [facility] Problems Active Problems Problem Classification Problem Date [...] [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) Encounter for adjustment and management of other cardiac device; Translations: [Encounter for adjustment and management of other cardiac device] Onset: 4 Chronic Coronary atherosclerosis and other heart disease [...] 06-15-2022 11-06-2022 Other aftercare (1 source) exterminator helper (current) use of anticoagulants; Translations: [CHLORINATOR OPERATOR CURRNT USE ANTICOAGULANTS] Onset: 09-07-2022 Episodic Other aftercare (1 source) exterminator helper (current) use of aspirin; Translations: [SKILLED NURSING CURRENT USE OF ASPIRIN] Onset: 09-07-2022 Episodic Other aftercare (1 source) Other buttermaker continuous churn (current) drug therapy; Translations: [OTH SKILLED NURSING CURRENT DRUG THERAPY] Onset: 09-07-2022 Episodic Other [...] now? 2 Result Comment: PERF ORMED BY: [address] [place] [address] PATHOLOGIST SINKER WINDER OTTO HARLEY M.D. Start: 03-05-2024 Stool Occult Blood (AMY) DO Sam Cooney Work Phone: Start: 03-05-2024 Plain chest X-ray DO Anna Cooney Work Phone: Start: 12-28-2023 CT WATCHMAN FULL CONTRAST RYAN COBB Start: 12-28-2023 Ct heart contrast ev al cardiac structure&morph Ryan Cobb MD Work Phone: Start: 10-22-2023 Lipid panel [facility] Start: 10-22-2023 Comprehensive metabo lic 2000 panel - Serum or Plasma ZA HERNÁNDEZ Start: 08-28-2023 Echo transthorc r-t 2d w/wo m-mode rec f-up/lmtd Lucas Pearce PROOFING MACHINE OPERATOR-ANDROID PROGRAMMER Work Phone: Start: 08-28-2023 Ecg routine ecg w/le ast 12 lds trcg only w/o i&r Lucas Pearce PROOFING MACHINE OPERATOR-ANDROID PROGRAMMER Work Phone: Start: 08-22-2023 Creatinine [Mass/vol ume] [...] Trung FERGUSON Start: 01-24-2022 Cystoscopy Trung SALVATORE PHAM Start: 10-13-2020 Assay of free thyroxine Israr Ul Santos Work Phone: Start: 10-13-2020 Assay of thyroid stimulating hormone tsh Israr Ul Santos Work Phone: Start: 10-13-2020 VITAMIN B12 & FOLATE Is rar Ul Santos Work Phone: Start: 09-15-2020 CT head/brain wo con Re kurtn Eros Start: 02-04-2020 Ct head/brain w/o co ntrast [...] EVAL AND TREAT LESTER CHIRRI Start: 12-22-2019 TURNING AND BEADING MACHINE OPERATOR EVAL AND TREAT GRAYSON L [...] Albumin [Mass/Vol] 3.0 g/dL Low 3.5-5.7 [facility] Comment on above: Performed By: #### P TT, BMP, HS TROP, PT, CK, BNP, DIFF CBC #### [address] Albumin/Globulin [Mass ratio] 0.5 {ratio} Normal [facility] Comment on above: Performed By: #### P TT, BMP, HS TROP, PT, CK, BNP, DIFF CBC #### [address] ALP [Catalytic activity/Vol] 63 U/L Normal 34-104 [facility] Comment on above: Performed By: #### P TT, BMP, HS TROP, PT, CK, BNP, DIFF CBC #### [address] ALT [Catalytic activity/Vol] 10 U/L Normal 7-52 [facility] Comment on above: Performed By: #### P TT, BMP, HS TROP, PT, CK, BNP, DIFF CBC #### [address] Anion gap [Moles/Vol] Not performed Normal 6.0-15.0 [facility] Comment on above: Performed By: #### P TT, BMP, HS TROP, PT, CK, BNP, DIFF CBC #### [address] Aspartate Amino Transferase Normal 13-39 [facility] Comment on above: Result Comment: Spec imen hemolyzed, redraw requested Performed By: #### P TT, BMP, HS TROP, PT, CK, BNP, DIFF CBC #### [address] Bilirubin [Mass/Vol] 0.4 mg/dL Normal 0.3-1.0 [facility] Comment on above: Performed By: #### P TT, BMP, HS TROP, PT, CK, BNP, DIFF CBC #### [address] Calcium [Mass/Vol] 9.0 mg/dL Normal 8.6-10.3 [facility] Comment on above: Performed By: #### P TT, BMP, HS TROP, PT, CK, BNP, DIFF CBC #### [facility] [address] Chloride [Moles/Vol] 103 mmol/L Normal 98-107 [facility] Comment on above: Performed By: #### P TT, BMP, HS TROP, PT, CK, BNP, DIFF CBC #### [address] CO2 [Moles/Vol] 24.1 mmol/L Normal 21.0-31.0 [facility] Comment on above: Performed By: #### P TT, BMP, HS TROP, PT, CK, BNP, DIFF CBC #### [address] Creatinine [Mass/Vol] 1.18 mg/dL Normal 0.70-1.30 [facility] Comment on above: Performed By: #### P TT, BMP, HS TROP, PT, CK, BNP, DIFF CBC #### [address] Creatinine Clr Calc Pharmacy 53.26 Normal [facility] Comment on above: Result Comment: PERF ORMED BY: [place] [address] PATHOLOGIST SINKER WINDER OTTO HARLEY M.D. Performed By: #### P TT, BMP, HS TROP, PT, CK, BNP, DIFF CBC #### [place] [address] [place] GFR/1.73 sq M.predicted MDRD (S/P/Bld) [Vol rate/Area] mL/min/{1.73_m2} Normal [facility] Comment on above: Performed By: #### P TT, BMP, HS TROP, PT, CK, BNP, DIFF CBC #### [place] [address] [place] Globulin (S) [Mass/Vol] 5.7 g/dL Normal [facility] Comment on above: Performed By: #### P TT, BMP, HS TROP, PT, CK, BNP, DIFF CBC #### [address] Glucose [Mass/Vol] 103 mg/dL High 70-100 [facility] Comment on above: Result Comment: [facility] Glucose Reference Range is dependent on time and content of last meal. Glucose of more than 200 mg/dL in a nonstressed, ambulatory subject supports the diagnosis of Diabetes Mellitus. ADA recommended reference range Performed By: #### P TT, BMP, HS TROP, PT, CK, BNP, DIFF CBC #### [address] Potassium Normal 3.5-5.1 [facility] Comment on above: Result Comment: Spec imen hemolyzed, redraw requested Performed By: #### P TT, BMP, HS TROP, PT, CK, BNP, DIFF CBC #### [address] Protein [Mass/Vol] 8.7 g/dL Normal 6.4-8.9 [facility] Comment on above: Performed By: #### P TT, BMP, HS TROP, PT, CK, BNP, DIFF CBC #### [address] Sodium [Moles/Vol] 136 mmol/L Normal 136-145 [facility] Comment on above: Performed By: #### P TT, BMP, HS TROP, PT, CK, BNP, DIFF CBC #### [address] Urea nitrogen [Mass/Vol] 19 mg/dL Normal 7-25 [facility] Comment on above: Performed By: #### P TT, BMP, HS TROP, PT, CK, BNP, DIFF CBC #### [address] Daratumumab Molecular Genoty peon 03-20-2024 Daratumumab Molecular Genotype Normal [facility] Comment on above: Result Comment: Sent to Libyan Wad[facility] for further testing. Final report to follow. PERFORMED BY: [place] [address] PATHOLOGIST SINKER WINDER OTTO HARLEY M.D. Diff and CBCon 03-20-2024 Anisocytosis Ql (Bld) Slight Normal [facility] Comment on above: Performed By: #### P TT, BMP, HS TROP, PT, CK, BNP, DIFF CBC #### [address] Band form neutrophils/100 WBC (Bld) 2 % Normal 0-5 [facility] Comment on above: Performed By: #### P TT, BMP, HS TROP, PT, CK, BNP, DIFF CBC #### [address] Eosinophils/100 WBC (Bld) 5 % High 1-3 [facility] Comment on above: Performed By: #### P TT, BMP, HS TROP, PT, CK, BNP, DIFF CBC #### [address] Erythrocyte distribution width (RBC) [Ratio] 20.6 % High 12.0-14.8 [facility] Comment on above: Performed By: #### P TT, BMP, HS TROP, PT, CK, BNP, DIFF CBC #### [address] Giant Platelet Tally 1 /100{WBC} Normal [facility] Comment on above: Performed By: #### P TT, BMP, HS TROP, PT, CK, BNP, DIFF CBC #### [address] Hematocrit (Bld) [Volume fraction] 26.3 % Low 38.8-50.0 [facility] Comment on above: Performed By: #### P TT, BMP, HS TROP, PT, CK, BNP, DIFF CBC #### [address] Hemoglobin (Bld) [Mass/Vol] 9.1 g/dL Low 13.0-17.0 [facility] Comment on above: Performed By: #### P TT, BMP, HS TROP, PT, CK, BNP, DIFF CBC #### [address] Lymphocytes/100 WBC (Bld) 63 % High 18-42 [facility] Comment on above: Performed By: #### P TT, BMP, HS TROP, PT, CK, BNP, DIFF CBC #### [address] MCH (RBC) [Entitic mass] 34.1 pg Normal 27.5-35.2 [facility] Comment on above: Performed By: #### P TT, BMP, HS TROP, PT, CK, BNP, DIFF CBC #### [address] MCV (RBC) [Entitic vol] 98.6 fL Normal 83.5-101 [facility] Comment on above: Performed By: #### P TT, BMP, HS TROP, PT, CK, BNP, DIFF CBC #### [address] Mean Corpuscular HGB Conc 34.6 g/dL Normal 32.5-35.6 [facility] Comment on above: Performed By: #### P TT, BMP, HS TROP, PT, CK, BNP, DIFF CBC #### [address] Platelet Estimate Decreased Normal Normal [facility] Comment on above: Performed By: #### P TT, BMP, HS TROP, PT, CK, BNP, DIFF CBC #### [address] Platelet mean volume (Bld) [Entitic vol] 8.5 fL Normal 6.6-10.1 [facility] Comment on above: Result Comment: PERF ORMED BY: [place] [address] PATHOLOGIST SINKER WINDER OTTO HARELY M.D. Performed By: #### P TT, BMP, HS TROP, PT, CK, BNP, DIFF CBC #### [address] Platelet Morphology Normal Normal Normal [facility] Comment on above: Result Comment: PERF ORMED BY: [place] [address] PATHOLOGIST SINKER WINDER OTTO HARLEY M.D. Performed By: #### P TT, BMP, HS TROP, PT, CK, BNP, DIFF CBC #### [address] Platelets (Bld) [#/Vol] 81 10*3/uL Low 150-450 [facility] Comment on above: Performed By: #### P TT, BMP, HS TROP, PT, CK, BNP, DIFF CBC #### [address] Poikilocytosis Slight Normal [facility] Comment on above: Performed By: #### P TT, BMP, HS TROP, PT, CK, BNP, DIFF CBC #### [address] Polychromasia Slight Normal [facility] Comment on above: Performed By: #### P TT, BMP, HS TROP, PT, CK, BNP, DIFF CBC #### [address] RBC (Bld) [#/Vol] 2.67 10*6/uL Low 3.90-5.60 [facility] Comment on above: Performed By: #### P TT, BMP, HS TROP, PT, CK, BNP, DIFF CBC #### [address] Reactive Lymphocytes 1 % Normal 0-12 [facility] Comment on above: Performed By: #### P TT, BMP, HS TROP, PT, CK, BNP, DIFF CBC #### [address] Rouleaux Slight Normal [facility] Comment on above: Performed By: #### P TT, BMP, HS TROP, PT, CK, BNP, DIFF CBC #### [address] Segmented neutrophils/100 WBC (Bld) 30 % Low 50-70 [facility] Comment on above: Performed By: #### P TT, BMP, HS TROP, PT, CK, BNP, DIFF CBC #### [address] WBC (Bld) [#/Vol] 1.8 10*3/uL Low 4.1-10.5 [facility] Comment on above: Performed By: #### P TT, BMP, HS TROP, PT, CK, BNP, DIFF CBC #### [address] Alanine aminotransferase [En zymatic activity/volume] in Serum or PlasmaOrdered By: Vijay Aguilar on 03-09-2024 ALT [Catalytic activity/Vol] 10 U/L Normal 7-52 [facility] Comment on above: Performed By: #### P TT, BMP, HS TROP, PT, CK, BNP, DIFF CBC #### [place] [address] [place] Albumin [Mass/volume] in Ser um or Plasma by Bromocresol green (BCG) dye binding methoOrdered By: Vijay Aguilar on 03-09-2024 Albumin BCG dye [Mass/Vol] 2.7 g/dL Low 3.5-5.7 [facility] Alkaline phosphatase [Enzyma tic activity/volume] in Serum or PlasmaOrdered By: Vijay Aguilar on 03-09-2024 ALP [Catalytic activity/Vol] 50 U/L Normal 34-104 [facility] Comment on above: Performed By: #### P TT, BMP, HS TROP, PT, CK, BNP, DIFF CBC #### [place] [address] [place] Anisocytosis [Presence] in B lood by Light microscopyOrdered By: Roslyn Townsend on 03-09-2024 Anisocytosis Ql (Bld) Slight Normal [facility] Comment on above: Performed By: #### P TT, BMP, HS TROP, PT, CK, BNP, DIFF CBC #### [facility] [address] [place] [address] [place] Aspartate aminotransferase [ Enzymatic activity/volume] in Serum or PlasmaOrdered By: Vijay Aguilar on 03-09-2024 AST [Catalytic activity/Vol] 11 U/L Low 13-39 [facility] Comment on above: Performed By: #### P TT, BMP, HS TROP, PT, CK, BNP, DIFF CBC #### [facility] [address] [place] [address] [place] Basophils Auto (Bld) [#/Vol] Ordered By: Roslyn Townsend on 03-09-2024 Basophils (Bld) [#/Vol] N/A [facility] Basophils/100 WBC Auto (Bld) Ordered By: Roslyn Townsend on 03-09-2024 Basophils/100 WBC (Bld) N/A [facility] Basophils/100 leukocytes in Blood by Manual countOrdered By: Roslyn Townsend on 03-09-2024 Basophils/100 WBC (Bld) 0 % Normal 0-2 [facility] Comment on above: Performed By: #### P TT, BMP, HS TROP, PT, CK, BNP, DIFF CBC #### [facility] [address] [place] [address] [place] Bilirubin.total [Mass/volume ] in Serum or PlasmaOrdered By: Vijay Aguilar on 03-09-2024 Bilirubin [Mass/Vol] 0.5 mg/dL Normal 0.3-1.0 [facility] Comment on above: Performed By: #### P TT, BMP, HS TROP, PT, CK, BNP, DIFF CBC #### [facility] [address] [place] [address] [place] Calcium [Mass/volume] in Ser um or PlasmaOrdered By: Vijay Aguilar on 03-09-2024 Calcium [Mass/Vol] 7.7 mg/dL Low 8.6-10.3 [facility] Comment on above: Performed By: #### P TT, BMP, HS TROP, PT, CK, BNP, DIFF CBC #### [facility] [address] [place] [address] [place] Carbon dioxide, total [Moles /volume] in Serum or PlasmaOrdered By: Vijay Aguilar on 03-09-2024 CO2 [Moles/Vol] 19.1 mmol/L Low 21.0-31.0 [facility] Comment on above: Performed By: #### P TT, BMP, HS TROP, PT, CK, BNP, DIFF CBC #### [facility] [address] Chloride [Moles/volume] in S dustin or PlasmaOrdered By: Vijay Aguilar on 03-09-2024 Chloride [Moles/Vol] 107 mmol/L Normal 98-107 [facility] Comment on above: Performed By: #### P TT, BMP, HS TROP, PT, CK, BNP, DIFF CBC #### [facility] [address] Comprehensive Metabolic Pane melvin 03-09-2024 Albumin [Mass/Vol] 2.7 g/dL Low 3.5-5.7 [facility] Comment on above: Performed By: #### P TT, BMP, HS TROP, PT, CK, BNP, DIFF CBC #### [facility] [address] [place] [address] [place] Creatinine Clr Calc Pharmacy 59.85 Normal [facility] Comment on above: Performed By: #### P TT, BMP, HS TROP, PT, CK, BNP, DIFF CBC #### [place] [address] [place] GFR/1.73 sq M.predicted MDRD (S/P/Bld) [Vol rate/Area] mL/min/{1.73_m2} Normal [facility] Comment on above: Performed By: #### P TT, BMP, HS TROP, PT, CK, BNP, DIFF CBC #### [facility] [address] [place] [address] [place] Creatinine [Mass/volume] in Serum or PlasmaOrdered By: Vijay Aguilar on 03-09-2024 Creatinine [Mass/Vol] 1.05 mg/dL Normal 0.70-1.30 [facility] Comment on above: Performed By: #### P TT, BMP, HS TROP, PT, CK, BNP, DIFF CBC #### [address] Diff and CBCon 03-09-2024 Macrocytosis Slight Normal [facility] Comment on above: Performed By: #### P TT, BMP, HS TROP, PT, CK, BNP, DIFF CBC #### [address] Mean Corpuscular HGB Conc 35.4 g/dL Normal 32.5-35.6 [facility] Comment on above: Performed By: #### P TT, BMP, HS TROP, PT, CK, BNP, DIFF CBC #### [address] Other Cell Type 5 % High 0-0 [facility] Comment on above: Result Comment: PLAS MACYTOID LYMPHOCYTE Performed By: #### P TT, BMP, HS TROP, PT, CK, BNP, DIFF CBC #### [address] Platelet Estimate Decreased Normal Normal [facility] Comment on above: Performed By: #### P TT, BMP, HS TROP, PT, CK, BNP, DIFF CBC #### [address] Platelet Morphology Normal Normal Normal [facility] Comment on above: Result Comment: PERF ORMED BY: [place] [address] PATHOLOGIST SINKER WINDER OTTO HARLEY M.D. Performed By: #### P TT, BMP, HS TROP, PT, CK, BNP, DIFF CBC #### [address] Poikilocytosis Slight Normal [facility] Comment on above: Performed By: #### P TT, BMP, HS TROP, PT, CK, BNP, DIFF CBC #### [address] Rouleaux Moderate Normal [facility] Comment on above: Performed By: #### P TT, BMP, HS TROP, PT, CK, BNP, DIFF CBC #### [place] [address] [place] Eosinophils Auto (Bld) [#/Vo l]Ordered By: Roslyn Townsend on 03-09-2024 Eosinophils (Bld) [#/Vol] N/A [facility] Eosinophils/100 WBC Auto (Bl d)Ordered By: Roslyn Townsend on 03-09-2024 Eosinophils/100 WBC (Bld) N/A [facility] Eosinophils/100 leukocytes i n Blood by Manual countOrdered By: Roslyn Townsend on 03-09-2024 Eosinophils/100 WBC (Bld) 3 % Normal 1-3 [facility] Comment on above: Performed By: #### P TT, BMP, HS TROP, PT, CK, BNP, DIFF CBC #### [facility] [address] Erythrocyte distribution wid th [Ratio] by Automated countOrdered By: Roslyn Townsend on 03-09-2024 Erythrocyte distribution width (RBC) [Ratio] 20.7 % High 12.0-14.8 [facility] Comment on above: Performed By: #### P TT, BMP, HS TROP, PT, CK, BNP, DIFF CBC #### [facility] [address] Erythrocytes [#/volume] in B lood by Automated countOrdered By: Roslyn Townsend on 03-09-2024 RBC (Bld) [#/Vol] 2.68 10*6/uL Low 3.90-5.60 [facility] Comment on above: Performed By: #### P TT, BMP, HS TROP, PT, CK, BNP, DIFF CBC #### [facility] [address] Glucose [Mass/volume] in Ser um or PlasmaOrdered By: Vijay Aguilar on 03-09-2024 Glucose [Mass/Vol] 97 mg/dL Normal 70-100 [facility] Comment on above: ADA recommended refe rence rangeRandom Glucose Reference Range is dependent on time and content of last meal. Glucose of more than 200 mg/dL in a nonstressed, ambulatory subject supports the diagnosis of Diabetes Mellitus. Result Comment: [facility] Glucose Reference Range is dependent on time and content of last meal. Glucose of more than 200 mg/dL in a nonstressed, ambulatory subject supports the diagnosis of Diabetes Mellitus. ADA recommended reference range Performed By: #### P TT, BMP, HS TROP, PT, CK, BNP, DIFF CBC #### [facility] [address] Hematocrit [Volume Fraction] of Blood by Automated countOrdered By: Roslyn Townsend on 03-09-2024 Hematocrit (Bld) [Volume fraction] 26.1 % Low 38.8-50.0 [facility] Comment on above: Performed By: #### P TT, BMP, HS TROP, PT, CK, BNP, DIFF CBC #### [facility] [address] Hemoglobin [Mass/volume] in BloodOrdered By: Roslyn Townsend on 03-09-2024 Hemoglobin (Bld) [Mass/Vol] 9.2 g/dL Low 13.0-17.0 [facility] Comment on above: Performed By: #### P TT, BMP, HS TROP, PT, CK, BNP, DIFF CBC #### [facility] [address] [place] [address] [place] Melvin 03-09-2024 L Specimen: [id number] Re ceived: 03/09/24 Status: SOUT Req Num: [id number] Spec Type: Impression Subm Dr: Vijay Aguilar MD Tissues: PATHPER Procedures: PATHREVIEW Age/ Patient Sex Location Account Attending Physician Neil Wilcox 78/Cassie [id number] Vijay Aguilar MD SPEC NUM: [id number] RECD: 03/09/24 STATUS: SOUT REQ NUM: [id number] MOE: 03/09/24- SUBM DR: Vijay Aguilar MD ENTERED: 03/09/[address] [facility] [address]: SPEC TYPE: Impression DEPT: [place] ORDERED: PATHREVIEW ORDERED: PATHREVIEW Pathologist Review Abnormal [...] partly the cause of progressing pancytopenia CPT: 70109 CBC Date Time Test Result Flag (u) Normal Range 03/06/24 0753 Band 1 0-5 % 03/08/24 0551 Neut % (Auto) 57.3 . % Lymp % (Auto) 38.4 . % [place] % (Auto) 1.0 . % Eos % (Auto) 0.1 . % Baso % (Auto) 3.2 . % NRBC% 0.3 0-0.5 /100 WBC Specimen: [id number] Received: 03/09/24-1013 Status: URVASHI Miranda Num: [id number] Spec Type: Impression Subm Dr: Vijay Aguilar MD Tissues: PATHPER Procedures: PATHREVIEW Patient: Neil Wilcox [id number] (Continued) Specimen: [id number] Received: 03/09/24-1013 (Continued) CBC (Continued) Signed (signature on file) Chaitanya Paulino MD 03/11/24 1130 Specimen: [id number] Received: 03/09/24-1013 Status: URVASHI Miranda Num: [id number] Spec Type: Impression Subm Dr: Vijay Aguilar MD Tissues: PATHPER Procedures: PATHREVIEW Patient: Neil Wilcox [id number] (Continued) Specimen: [id number] Received: 03/09/24-1013 (Continued) CBC (Continued) Neut # (Auto) 1.1 L 1.8-7.7 x10E3/uL Lymph # (Auto) 0.7 L 1.00-4.8 x10E3/uL [place] # (Auto) 0.0 0.0-0.8 x10E3/uL Eos # [...] 50-70 % Lymph 57 H 18-42 % [place] 0 L 2-11 % Eos 3 1-3 % Baso 0 0-2 % Other Cell Type 5 H 0-0 % PLASMACYTOID LYMPHOCYTE Poik Slight Aniso Slight Macro Slight Rouleaux Moderate Plt Est Decreased Normal Plt Morphology Normal Normal Specimen: [id number] Received: 03/09/24-1013 Status: URVASHI Miranda Num: [id number] Spec Type: Impression Subm Dr: Vijay Aguilar MD Tissues: PATHPER Procedures: PATHREVIEW Patient: Neil Wilcox [id number] (Continued) Signed (signature on file) Chin-Emilio Paulino MD 03/11/24 1130 Normal [facility] Leukocytes [#/volume] correc myrtle for nucleated erythrocytes in Blood by Automated counOrdered By: Roslyn Townsend on 03-09-2024 WBC corrected for nucl RBC Auto (Bld) [#/Vol] 2.8 10*3/uL Low 4.1-10.5 [facility] Leukocytes [#/volume] in Blo od by Automated countOrdered By: Roslyn Townsend on 03-09-2024 WBC (Bld) [#/Vol] 2.8 10*3/uL Low 4.1-10.5 [facility] Comment on above: Performed By: #### P TT, BMP, HS TROP, PT, CK, BNP, DIFF CBC #### [address] Lymphocytes Auto (Bld) [#/Vo l]Ordered By: Roslyn Townsend on 03-09-2024 Lymphocytes (Bld) [#/Vol] N/A [facility] Lymphocytes/100 WBC Auto (Bl d)Ordered By: Roslyn Townsend on 03-09-2024 Lymphocytes/100 WBC (Bld) N/A [facility] Lymphocytes/100 leukocytes i n Blood by Manual countOrdered By: Roslyn Townsend on 03-09-2024 Lymphocytes/100 WBC (Bld) 57 % High 18-42 [facility] Comment on above: Performed By: #### P TT, BMP, HS TROP, PT, CK, BNP, DIFF CBC #### [facility] [address] MCH [Entitic mass] by Automa myrtle countOrdered By: Roslyn Townsend on 03-09-2024 MCH (RBC) [Entitic mass] 34.4 pg Normal 27.5-35.2 [facility] Comment on above: Performed By: #### P TT, BMP, HS TROP, PT, CK, BNP, DIFF CBC #### [facility] [address] [place] [address] MCHC Auto (RBC) [Mass/Vol]Or dered By: Roslyn Townsend on 03-09-2024 MCHC (RBC) [Mass/Vol] 35.4 g/dL 32.5-35.6 [facility] MCV [Entitic volume] by Auto mated countOrdered By: Roslyn Townsend on 03-09-2024 MCV (RBC) [Entitic vol] 97.2 fL Normal 83.5-101 [facility] Comment on above: Performed By: #### P TT, BMP, HS TROP, PT, CK, BNP, DIFF CBC #### [facility] [address] [place] [address] Macrocytes LM Ql (Bld)Ordere d By: Roslyn Townsend on 03-09-2024 Macrocytes Ql (Bld) [facility] Magnesium [Mass/volume] in S dustin or PlasmaOrdered By: Vijay Aguilar on 03-09-2024 Magnesium [Mass/Vol] 1.7 mg/dL Low 1.9-2.7 [facility] Comment on above: Result Comment: PERF ORMED BY: [place] [address] PATHOLOGIST SINKER WINDER OTTO HARLEY M.D. Performed By: #### P TT, BMP, HS TROP, PT, CK, BNP, DIFF CBC #### [facility] [address] Manual blood segmented neutr ophils/100 leukocytesOrdered By: Roslyn Townsend on 03-09-2024 Segmented neutrophils/100 WBC (Bld) 35 % Low 50-70 [facility] Comment on above: Performed By: #### P TT, BMP, HS TROP, PT, CK, BNP, DIFF CBC #### [facility] [address] Monocytes Auto (Bld) [#/Vol] Ordered By: Roslyn Townsend on 03-09-2024 Monocytes (Bld) [#/Vol] N/A [facility] Monocytes/100 WBC Auto (Bld) Ordered By: Roslyn Townsend on 03-09-2024 Monocytes/100 WBC (Bld) N/A [facility] Monocytes/100 leukocytes in Blood by Manual countOrdered By: Roslyn Townsend on 03-09-2024 Monocytes/100 WBC (Bld) 0 % Low 2-11 [facility] Comment on above: Performed By: #### P TT, BMP, HS TROP, PT, CK, BNP, DIFF CBC #### [facility] [address] [place] [address] [place] Neutrophils Auto (Bld) [#/Vo l]Ordered By: Roslyn Townsend on 03-09-2024 Neutrophils (Bld) [#/Vol] N/A [facility] Neutrophils/100 WBC Auto (Bl d)Ordered By: Roslyn Townsend on 03-09-2024 Neutrophils/100 WBC (Bld) N/A [facility] No Panel InformationOrdered By: Vijay Aguilar on 03-09-2024 Estimated GFR (CKD-EPI) > 60.0 mL/Min [facility] Creatinine Clearance (Chem 59.85 [facility] Nucleated erythrocytes [Pres ence] in Blood by Automated countOrdered By: Roslyn Townsend on 03-09-2024 Nucleated RBC Auto Ql (Bld) N/A [facility] Platelet adequacy [Presence] in Blood by Light microscopyOrdered By: Roslyn Townsend on 03-09-2024 Platelets LM Ql (Bld) Decreased Normal [facility] Platelet mean volume [Entiti c volume] in Blood by Automated countOrdered By: Roslyn Townsend on 03-09-2024 Platelet mean volume (Bld) [Entitic vol] 7.4 fL Normal 6.6-10.1 [facility] Comment on above: Performed By: #### P TT, BMP, HS TROP, PT, CK, BNP, DIFF CBC #### [facility] [address] Platelet morphology finding [Identifier] in BloodOrdered By: Roslyn Townsend on 03-09-2024 Platelet morphology finding Nom (Bld) Normal Normal [facility] Platelets [#/volume] in Bloo d by Automated countOrdered By: Roslyn Townsend on 03-09-2024 Platelets (Bld) [#/Vol] 62 10*3/uL Low 150-450 [facility] Comment on above: Performed By: #### P TT, BMP, HS TROP, PT, CK, BNP, DIFF CBC #### [facility] [address] [place] [address] [place] Poikilocytosis [Presence] in Blood by Light microscopyOrdered By: Roslyn Townsend on 03-09-2024 Poikilocytosis LM Ql (Bld) Slight [facility] Potassium [Moles/volume] in Serum or PlasmaOrdered By: Vijay Aguilar on 03-09-2024 Potassium [Moles/Vol] 3.3 mmol/L Low 3.5-5.1 [facility] Comment on above: Performed By: #### P TT, BMP, HS TROP, PT, CK, BNP, DIFF CBC #### [facility] [address] [place] [address] [place] Protein [Mass/volume] in Ser um or PlasmaOrdered By: Vijay Aguilar on 03-09-2024 Protein [Mass/Vol] 7.8 g/dL Normal 6.4-8.9 [facility] Comment on above: Performed By: #### P TT, BMP, HS TROP, PT, CK, BNP, DIFF CBC #### [facility] [address] [place] [address] RBC morphologyOrdered By: Kathleen Townsend on 03-09-2024 RBC morphology finding Nom (Bld) N/A [facility] Rouleaux detectionOrdered By : Roslyn Townsend on 03-09-2024 Rouleaux LM Ql (Bld) Moderate [facility] Serum globulin measurement b y calculation (mass/volume)Ordered By: Vijay Aguilar on 03-09-2024 Globulin (S) [Mass/Vol] 5.1 g/dL Normal [facility] Comment on above: Performed By: #### P TT, BMP, HS TROP, PT, CK, BNP, DIFF CBC #### [facility] [address] [place] [address] Serum or plasma albumin/glob ulin mass ratioOrdered By: Vijay Aguilar on 03-09-2024 Albumin/Globulin [Mass ratio] 0.5 {ratio} [facility] Comment on above: Performed By: #### P TT, BMP, HS TROP, PT, CK, BNP, DIFF CBC #### [facility] [address] [place] [address] Serum or plasma anion gap de terminationOrdered By: Vijay Aguilar on 03-09-2024 Anion gap [Moles/Vol] 13.2 mmol/L Normal 6.0-15.0 [facility] Comment on above: Performed By: #### P TT, BMP, HS TROP, PT, CK, BNP, DIFF CBC #### [facility] [address] [place] [address] Sodium [Moles/volume] in Ser um or PlasmaOrdered By: Vijay Aguilar on 03-09-2024 Sodium [Moles/Vol] 136 mmol/L Normal 136-145 [facility] Comment on above: Performed By: #### P TT, BMP, HS TROP, PT, CK, BNP, DIFF CBC #### [facility] [address] [place] [address] Urea nitrogen [Mass/volume] in Serum or PlasmaOrdered By: Vijay Aguilar on 03-09-2024 Urea nitrogen [Mass/Vol] 18 mg/dL Normal 7-25 [facility] Comment on above: Performed By: #### P TT, BMP, HS TROP, PT, CK, BNP, DIFF CBC #### [address] WBC other/100 WBC Manual cnt (Bld)Ordered By: Roslyn Townsend on 03-09-2024 WBC other/100 WBC (Bld) 5 % High 0-0 [facility] Comment on above: PLASMACYTOID LYMPHOC YTE Basic Metabolic Panelon 02-22 Anion gap [Moles/Vol] 13.2 mmol/L Normal 6.0-15.0 [facility] Comment on above: Performed By: #### P TT, BMP, HS TROP, PT, CK, BNP, DIFF CBC #### [address] Calcium [Mass/Vol] 7.9 mg/dL Low 8.6-10.3 [facility] Comment on above: Performed By: #### P TT, BMP, HS TROP, PT, CK, BNP, DIFF CBC #### [address] Chloride [Moles/Vol] 106 mmol/L Normal 98-107 [facility] Comment on above: Performed By: #### P TT, BMP, HS TROP, PT, CK, BNP, DIFF CBC #### [address] CO2 [Moles/Vol] 18.6 mmol/L Low 21.0-31.0 [facility] Comment on above: Performed By: #### P TT, BMP, HS TROP, PT, CK, BNP, DIFF CBC #### [address] Creatinine [Mass/Vol] 1.01 mg/dL Normal 0.70-1.30 [facility] Comment on above: Performed By: #### P TT, BMP, HS TROP, PT, CK, BNP, DIFF CBC #### [place] [address] [place] Creatinine Clr Calc Pharmacy 62.22 Normal [facility] Comment on above: Result Comment: PERF ORMED BY: [place] [address] PATHOLOGIST SINKER WINDER OTTO HARLEY M.D. Performed By: #### P TT, BMP, HS TROP, PT, CK, BNP, DIFF CBC #### [place] [address] [place] GFR/1.73 sq M.predicted MDRD (S/P/Bld) [Vol rate/Area] mL/min/{1.73_m2} Normal [facility] Comment on above: Performed By: #### P TT, BMP, HS TROP, PT, CK, BNP, DIFF CBC #### [place] [address] [place] Glucose [Mass/Vol] 136 mg/dL High 70-100 [facility] Comment on above: Result Comment: [place] Glucose Reference Range is dependent on time and content of last meal. Glucose of more than 200 mg/dL in a nonstressed, ambulatory subject supports the diagnosis of Diabetes Mellitus. ADA recommended reference range Performed By: #### P TT, BMP, HS TROP, PT, CK, BNP, DIFF CBC #### [address] Potassium [Moles/Vol] 3.8 mmol/L Normal 3.5-5.1 [facility] Comment on above: Performed By: #### P TT, BMP, HS TROP, PT, CK, BNP, DIFF CBC #### [place] [address] [place] Sodium [Moles/Vol] 134 mmol/L Low 136-145 [facility] Comment on above: Performed By: #### P TT, BMP, HS TROP, PT, CK, BNP, DIFF CBC #### [place] [address] [place] Urea nitrogen [Mass/Vol] 21 mg/dL Normal 7-25 [facility] Comment on above: Performed By: #### P TT, BMP, HS TROP, PT, CK, BNP, DIFF CBC #### [address] Complete Blood Count Auto Di ffon 03-08-2024 Basophils (Bld) [#/Vol] 0.1 10*3/uL Normal 0.0-0.2 [facility] Comment on above: Result Comment: PERF ORMED BY: [place] [address] PATHOLOGIST SINKER WINDER OTTO HARLEY M.D. Performed By: #### P TT, BMP, HS TROP, PT, CK, BNP, DIFF CBC #### [address] Basophils/100 WBC (Bld) 3.2 % Normal . [facility] Comment on above: Performed By: #### P TT, BMP, HS TROP, PT, CK, BNP, DIFF CBC #### [address] Eosinophils (Bld) [#/Vol] 0.0 10*3/uL Normal 0.0-0.45 [facility] Comment on above: Performed By: #### P TT, BMP, HS TROP, PT, CK, BNP, DIFF CBC #### [address] Eosinophils/100 WBC (Bld) 0.1 % Normal . [facility] Comment on above: Performed By: #### P TT, BMP, HS TROP, PT, CK, BNP, DIFF CBC #### [address] Erythrocyte distribution width (RBC) [Ratio] 20.9 % High 12.0-14.8 [facility] Comment on above: Performed By: #### P TT, BMP, HS TROP, PT, CK, BNP, DIFF CBC #### [address] Hematocrit (Bld) [Volume fraction] 27.2 % Low 38.8-50.0 [facility] Comment on above: Performed By: #### P TT, BMP, HS TROP, PT, CK, BNP, DIFF CBC #### [address] Hemoglobin (Bld) [Mass/Vol] 9.5 g/dL Low 13.0-17.0 [facility] Comment on above: Performed By: #### P TT, BMP, HS TROP, PT, CK, BNP, DIFF CBC #### [address] Lymphocytes (Bld) [#/Vol] 0.7 10*3/uL Low 1.00-4.8 [facility] Comment on above: Performed By: #### P TT, BMP, HS TROP, PT, CK, BNP, DIFF CBC #### [address] Lymphocytes/100 WBC (Bld) 38.4 % Normal . [facility] Comment on above: Performed By: #### P TT, BMP, HS TROP, PT, CK, BNP, DIFF CBC #### [address] MCH (RBC) [Entitic mass] 33.9 pg Normal 27.5-35.2 [facility] Comment on above: Performed By: #### P TT, BMP, HS TROP, PT, CK, BNP, DIFF CBC #### [address] MCV (RBC) [Entitic vol] 97.4 fL Normal 83.5-101 [facility] Comment on above: Performed By: #### P TT, BMP, HS TROP, PT, CK, BNP, DIFF CBC #### [address] Mean Corpuscular HGB Conc 34.8 g/dL Normal 32.5-35.6 [facility] Comment on above: Performed By: #### P TT, BMP, HS TROP, PT, CK, BNP, DIFF CBC #### [address] Monocytes (Bld) [#/Vol] 0.0 10*3/uL Normal 0.0-0.8 [facility] Comment on above: Performed By: #### P TT, BMP, HS TROP, PT, CK, BNP, DIFF CBC #### [address] Monocytes/100 WBC (Bld) 1.0 % Normal . [facility] Comment on above: Performed By: #### P TT, BMP, HS TROP, PT, CK, BNP, DIFF CBC #### [address] Neutrophils (Bld) [#/Vol] 1.1 10*3/uL Low 1.8-7.7 [facility] Comment on above: Performed By: #### P TT, BMP, HS TROP, PT, CK, BNP, DIFF CBC #### [address] Neutrophils/100 WBC (Bld) 57.3 % Normal . [facility] Comment on above: Performed By: #### P TT, BMP, HS TROP, PT, CK, BNP, DIFF CBC #### [address] NRBC% 0.3 /100{WBC} Normal 0-0.5 [facility] Comment on above: Performed By: #### P TT, BMP, HS TROP, PT, CK, BNP, DIFF CBC #### [address] Platelet mean volume (Bld) [Entitic vol] 7.3 fL Normal 6.6-10.1 [facility] Comment on above: Performed By: #### P TT, BMP, HS TROP, PT, CK, BNP, DIFF CBC #### [address] Platelets (Bld) [#/Vol] 59 10*3/uL Low 150-450 [facility] Comment on above: Performed By: #### P TT, BMP, HS TROP, PT, CK, BNP, DIFF CBC #### [address] RBC (Bld) [#/Vol] 2.79 10*6/uL Low 3.90-5.60 [facility] Comment on above: Performed By: #### P TT, BMP, HS TROP, PT, CK, BNP, DIFF CBC #### [address] WBC (Bld) [#/Vol] 1.8 10*3/uL Low 4.1-10.5 [facility] Comment on above: Performed By: #### P TT, BMP, HS TROP, PT, CK, BNP, DIFF CBC #### [address] Basic Metabolic Panelon 02-22 Anion gap [Moles/Vol] 12.4 mmol/L Normal 6.0-15.0 [facility] Comment on above: Performed By: #### P TT, BMP, HS TROP, PT, CK, BNP, DIFF CBC #### [address] Calcium [Mass/Vol] 8.3 mg/dL Low 8.6-10.3 [facility] Comment on above: Performed By: #### P TT, BMP, HS TROP, PT, CK, BNP, DIFF CBC #### [address] Chloride [Moles/Vol] 107 mmol/L Normal 98-107 [facility] Comment on above: Performed By: #### P TT, BMP, HS TROP, PT, CK, BNP, DIFF CBC #### [address] CO2 [Moles/Vol] 20.5 mmol/L Low 21.0-31.0 [facility] Comment on above: Performed By: #### P TT, BMP, HS TROP, PT, CK, BNP, DIFF CBC #### [address] Creatinine [Mass/Vol] 1.02 mg/dL Normal 0.70-1.30 [facility] Comment on above: Performed By: #### P TT, BMP, HS TROP, PT, CK, BNP, DIFF CBC #### [place] [address] [place] Creatinine Clr Calc Pharmacy 61.61 Normal [facility] Comment on above: Result Comment: PERF ORMED BY: [place] [address] PATHOLOGIST SINKER WINDER OTTO HARLEY M.D. Performed By: #### P TT, BMP, HS TROP, PT, CK, BNP, DIFF CBC #### [place] [address] [place] GFR/1.73 sq M.predicted MDRD (S/P/Bld) [Vol rate/Area] mL/min/{1.73_m2} Normal [facility] Comment on above: Performed By: #### P TT, BMP, HS TROP, PT, CK, BNP, DIFF CBC #### [address] Glucose [Mass/Vol] 92 mg/dL Normal 70-100 [facility] Comment on above: Result Comment: [place] Glucose Reference Range is dependent on time and content of last meal. Glucose of more than 200 mg/dL in a nonstressed, ambulatory subject supports the diagnosis of Diabetes Mellitus. ADA recommended reference range Performed By: #### P TT, BMP, HS TROP, PT, CK, BNP, DIFF CBC #### [place] [address] [place] Potassium [Moles/Vol] 3.9 mmol/L Normal 3.5-5.1 [facility] Comment on above: Performed By: #### P TT, BMP, HS TROP, PT, CK, BNP, DIFF CBC #### [place] [address] [place] Sodium [Moles/Vol] 136 mmol/L Normal 136-145 [facility] Comment on above: Performed By: #### P TT, BMP, HS TROP, PT, CK, BNP, DIFF CBC #### [place] [address] [place] Urea nitrogen [Mass/Vol] 17 mg/dL Normal 7-25 [facility] Comment on above: Performed By: #### P TT, BMP, HS TROP, PT, CK, BNP, DIFF CBC #### [address] Magnesiumon 03-07-2024 Magnesium [Mass/Vol] 1.6 mg/dL Low 1.9-2.7 [facility] Comment on above: Result Comment: PERF ORMED BY: [place] [address] PATHOLOGIST SINKER WINDER OTTO HARLEY M.D. Performed By: #### P TT, BMP, HS TROP, PT, CK, BNP, DIFF CBC #### [address] Scan and CBCon 03-07-2024 Anisocytosis Ql (Bld) Marked Normal [facility] Comment on above: Performed By: #### P TT, BMP, HS TROP, PT, CK, BNP, DIFF CBC #### [address] Basophils (Bld) [#/Vol] 0.0 10*3/uL Normal 0.0-0.2 [facility] Comment on above: Performed By: #### P TT, BMP, HS TROP, PT, CK, BNP, DIFF CBC #### [address] Basophils/100 WBC (Bld) 0.3 % Normal . [facility] Comment on above: Performed By: #### P TT, BMP, HS TROP, PT, CK, BNP, DIFF CBC #### [address] Eosinophils (Bld) [#/Vol] 0.2 10*3/uL Normal 0.0-0.45 [facility] Comment on above: Performed By: #### P TT, BMP, HS TROP, PT, CK, BNP, DIFF CBC #### [address] Eosinophils/100 WBC (Bld) 10.7 % Normal . [facility] Comment on above: Performed By: #### P TT, BMP, HS TROP, PT, CK, BNP, DIFF CBC #### [address] Erythrocyte distribution width (RBC) [Ratio] 21.1 % High 12.0-14.8 [facility] Comment on above: Performed By: #### P TT, BMP, HS TROP, PT, CK, BNP, DIFF CBC #### [address] Hematocrit (Bld) [Volume fraction] 26.4 % Low 38.8-50.0 [facility] Comment on above: Performed By: #### P TT, BMP, HS TROP, PT, CK, BNP, DIFF CBC #### [address] Hemoglobin (Bld) [Mass/Vol] 9.3 g/dL Low 13.0-17.0 [facility] Comment on above: Performed By: #### P TT, BMP, HS TROP, PT, CK, BNP, DIFF CBC #### [address] Lymphocytes (Bld) [#/Vol] 1.0 10*3/uL Normal 1.00-4.8 [facility] Comment on above: Performed By: #### P TT, BMP, HS TROP, PT, CK, BNP, DIFF CBC #### [address] Lymphocytes/100 WBC (Bld) 49.0 % Normal . [facility] Comment on above: Performed By: #### P TT, BMP, HS TROP, PT, CK, BNP, DIFF CBC #### [address] MCH (RBC) [Entitic mass] 34.3 pg Normal 27.5-35.2 [facility] Comment on above: Performed By: #### P TT, BMP, HS TROP, PT, CK, BNP, DIFF CBC #### [address] MCV (RBC) [Entitic vol] 97.4 fL Normal 83.5-101 [facility] Comment on above: Performed By: #### P TT, BMP, HS TROP, PT, CK, BNP, DIFF CBC #### [address] Mean Corpuscular HGB Conc 35.2 g/dL Normal 32.5-35.6 [facility] Comment on above: Performed By: #### P TT, BMP, HS TROP, PT, CK, BNP, DIFF CBC #### [address] Monocytes (Bld) [#/Vol] 0.0 10*3/uL Normal 0.0-0.8 [facility] Comment on above: Performed By: #### P TT, BMP, HS TROP, PT, CK, BNP, DIFF CBC #### [address] Monocytes/100 WBC (Bld) 1.2 % Normal . [facility] Comment on above: Performed By: #### P TT, BMP, HS TROP, PT, CK, BNP, DIFF CBC #### [address] Neutrophils (Bld) [#/Vol] 0.8 10*3/uL Low 1.8-7.7 [facility] Comment on above: Performed By: #### P TT, BMP, HS TROP, PT, CK, BNP, DIFF CBC #### [address] Neutrophils/100 WBC (Bld) 38.8 % Normal . [facility] Comment on above: Performed By: #### P TT, BMP, HS TROP, PT, CK, BNP, DIFF CBC #### [address] NRBC% 0.5 /100{WBC} Normal 0-0.5 [facility] Comment on above: Performed By: #### P TT, BMP, HS TROP, PT, CK, BNP, DIFF CBC #### [address] Platelet Estimate Decreased Normal Normal [facility] Comment on above: Performed By: #### P TT, BMP, HS TROP, PT, CK, BNP, DIFF CBC #### [address] Platelet mean volume (Bld) [Entitic vol] 7.1 fL Normal 6.6-10.1 [facility] Comment on above: Performed By: #### P TT, BMP, HS TROP, PT, CK, BNP, DIFF CBC #### [address] Platelet Morphology Normal Normal Normal [facility] Comment on above: Result Comment: PERF ORMED BY: [place] [address] PATHOLOGIST SINKER WINDER OTTO HARLEY M.D. Performed By: #### P TT, BMP, HS TROP, PT, CK, BNP, DIFF CBC #### [address] Platelets (Bld) [#/Vol] 60 10*3/uL Low 150-450 [facility] Comment on above: Performed By: #### P TT, BMP, HS TROP, PT, CK, BNP, DIFF CBC #### [address] RBC (Bld) [#/Vol] 2.71 10*6/uL Low 3.90-5.60 [facility] Comment on above: Performed By: #### P TT, BMP, HS TROP, PT, CK, BNP, DIFF CBC #### [place] [address] [place] Rouleaux Slight Normal [facility] Comment on above: Performed By: #### P TT, BMP, HS TROP, PT, CK, BNP, DIFF CBC #### [address] WBC (Bld) [#/Vol] 2.0 10*3/uL Low 4.1-10.5 [facility] Comment on above: Performed By: #### P TT, BMP, HS TROP, PT, CK, BNP, DIFF CBC #### [address] Basic Metabolic Panelon 06- Anion gap [Moles/Vol] 13.3 mmol/L Normal 6.0-15.0 [facility] Comment on above: Performed By: #### P TT, BMP, HS TROP, PT, CK, BNP, DIFF CBC #### [address] Calcium [Mass/Vol] 8.7 mg/dL Normal 8.6-10.3 [facility] Comment on above: Performed By: #### P TT, BMP, HS TROP, PT, CK, BNP, DIFF CBC #### [facility] [address] Chloride [Moles/Vol] 109 mmol/L High 98-107 [facility] Comment on above: Performed By: #### P TT, BMP, HS TROP, PT, CK, BNP, DIFF CBC #### [address] CO2 [Moles/Vol] 20.9 mmol/L Low 21.0-31.0 [facility] Comment on above: Performed By: #### P TT, BMP, HS TROP, PT, CK, BNP, DIFF CBC #### [address] Creatinine [Mass/Vol] 1.32 mg/dL Significan t change up 0.70-1.30 [facility] Comment on above: Performed By: #### P TT, BMP, HS TROP, PT, CK, BNP, DIFF CBC #### [address] Creatinine Clr Calc Pharmacy 47.61 Normal [facility] Comment on above: Result Comment: PERF ORMED BY: [place] [address] PATHOLOGIST SINKER WINDER OTTO HARLEY M.D. Performed By: #### P TT, BMP, HS TROP, PT, CK, BNP, DIFF CBC #### [address] GFR/1.73 sq M.predicted MDRD (S/P/Bld) [Vol rate/Area] 55.900 mL/min/{1.73_m2} Normal [facility] Comment on above: Performed By: #### P TT, BMP, HS TROP, PT, CK, BNP, DIFF CBC #### [address] Glucose [Mass/Vol] 91 mg/dL Normal 70-100 [facility] Comment on above: Result Comment: [place] Glucose Reference Range is dependent on time and content of last meal. Glucose of more than 200 mg/dL in a nonstressed, ambulatory subject supports the diagnosis of Diabetes Mellitus. ADA recommended reference range Performed By: #### P TT, BMP, HS TROP, PT, CK, BNP, DIFF CBC #### [address] Potassium [Moles/Vol] 4.2 mmol/L Normal 3.5-5.1 [facility] Comment on above: Performed By: #### P TT, BMP, HS TROP, PT, CK, BNP, DIFF CBC #### [address] Sodium [Moles/Vol] 139 mmol/L Normal 136-145 [facility] Comment on above: Performed By: #### P TT, BMP, HS TROP, PT, CK, BNP, DIFF CBC #### [address] Urea nitrogen [Mass/Vol] 28 mg/dL High 7-25 [facility] Comment on above: Performed By: #### P TT, BMP, HS TROP, PT, CK, BNP, DIFF CBC #### [place] [address] [place] Diff and CBCon 03-06-2024 Anisocytosis Ql (Bld) Marked Normal [facility] Comment on above: Performed By: #### P TT, BMP, HS TROP, PT, CK, BNP, DIFF CBC #### [place] [address] [place] Eosinophils/100 WBC (Bld) 7 % High 1-3 [facility] Comment on above: Performed By: #### P TT, BMP, HS TROP, PT, CK, BNP, DIFF CBC #### [address] Erythrocyte distribution width (RBC) [Ratio] 21.8 % High 12.0-14.8 [facility] Comment on above: Performed By: #### P TT, BMP, HS TROP, PT, CK, BNP, DIFF CBC #### [address] Hematocrit (Bld) [Volume fraction] 27.3 % Low 38.8-50.0 [facility] Comment on above: Performed By: #### P TT, BMP, HS TROP, PT, CK, BNP, DIFF CBC #### [address] Hemoglobin (Bld) [Mass/Vol] 9.4 g/dL Low 13.0-17.0 [facility] Comment on above: Performed By: #### P TT, BMP, HS TROP, PT, CK, BNP, DIFF CBC #### [address] Lymphocytes/100 WBC (Bld) 65 % High 18-42 [facility] [facility] Comment on above: Performed By: #### P TT, BMP, HS TROP, PT, CK, BNP, DIFF CBC #### [address] MCH (RBC) [Entitic mass] 34.0 pg Normal 27.5-35.2 [facility] Comment on above: Performed By: #### P TT, BMP, HS TROP, PT, CK, BNP, DIFF CBC #### [address] MCV (RBC) [Entitic vol] 98.5 fL Normal 83.5-101 [facility] Comment on above: Performed By: #### P TT, BMP, HS TROP, PT, CK, BNP, DIFF CBC #### [address] Mean Corpuscular HGB Conc 34.5 g/dL Normal 32.5-35.6 [facility] Comment on above: Performed By: #### P TT, BMP, HS TROP, PT, CK, BNP, DIFF CBC #### [address] Monocytes/100 WBC (Bld) 1 % Low 2-11 [facility] Comment on above: Performed By: #### P TT, BMP, HS TROP, PT, CK, BNP, DIFF CBC #### [address] Platelet Estimate Decreased Normal Normal [facility] Comment on above: Performed By: #### P TT, BMP, HS TROP, PT, CK, BNP, DIFF CBC #### [address] Platelet mean volume (Bld) [Entitic vol] 6.7 fL Normal 6.6-10.1 [facility] Comment on above: Result Comment: PERF ORMED BY: [place] [address] PATHOLOGIST SINKER WINDER OTTO HARLEY M.D. Performed By: #### P TT, BMP, HS TROP, PT, CK, BNP, DIFF CBC #### [address] Platelet Morphology Normal Normal Normal [facility] Comment on above: Result Comment: PERF ORMED BY: [place] [address] PATHOLOGIST SINKER WINDER OTTO HARLEY M.D. Performed By: #### P TT, BMP, HS TROP, PT, CK, BNP, DIFF CBC #### [place] [address] [place] Platelets (Bld) [#/Vol] 60 10*3/uL Low 150-450 [facility] Comment on above: Performed By: #### P TT, BMP, HS TROP, PT, CK, BNP, DIFF CBC #### [place] [address] [place] RBC (Bld) [#/Vol] 2.78 10*6/uL Low 3.90-5.60 [facility] Comment on above: Performed By: #### P TT, BMP, HS TROP, PT, CK, BNP, DIFF CBC #### [address] Rouleaux Slight Normal [facility] Comment on above: Performed By: #### P TT, BMP, HS TROP, PT, CK, BNP, DIFF CBC #### [address] Segmented neutrophils/100 WBC (Bld) 26 % Low 50-70 [facility] Comment on above: Performed By: #### P TT, BMP, HS TROP, PT, CK, BNP, DIFF CBC #### [address] WBC (Bld) [#/Vol] 1.9 10*3/uL Low 4.1-10.5 [facility] Comment on above: Performed By: #### P TT, BMP, HS TROP, PT, CK, BNP, DIFF CBC #### [address] Hemoglobin and Hematocriton 03-06-2024 Hematocrit (Bld) [Volume fraction] 26.8 % Low 38.8-50.0 [facility] Comment on above: Result Comment: PERF ORMED BY: [place] [address] PATHOLOGIST SINKER WINDER OTTO HARLEY M.D. Performed By: #### P TT, BMP, HS TROP, PT, CK, BNP, DIFF CBC #### [address] Hematocrit (Bld) [Volume fraction] 26.0 % Low 38.8-50.0 [facility] Comment on above: Result Comment: PERF ORMED BY: [place] [address] PATHOLOGIST SINKER WINDER OTTO HARLEY M.D. Performed By: #### P TT, BMP, HS TROP, PT, CK, BNP, DIFF CBC #### [address] [address] [place] Hemoglobin (Bld) [Mass/Vol] 9.1 g/dL Low 13.0-17.0 [facility] Comment on above: Performed By: #### P TT, BMP, HS TROP, PT, CK, BNP, DIFF CBC #### [facility] [address] Hemoglobin (Bld) [Mass/Vol] 8.9 g/dL Low 13.0-17.0 [facility] Comment on above: Performed By: #### P TT, BMP, HS TROP, PT, CK, BNP, DIFF CBC #### [facility] [address] Melvin 03-06-2024 L Specimen: BM Re ceived: 03/06/24 Status: SOU Req Num: [id number] Spec Type: Bone Marro Subm Dr: Bertha [...] Location Account Attending Physician Neil Wilcox 78/M [id number] Vijay Aguilar MD SPEC NUM: RECD: 03/06/24 STATUS: [facility] REQ NUM: [id number] MOE: 03/06/24- DR: Bertha Cuevas MD ENTERED: 03/06/[address] [facility] [address]: SPEC TYPE: Bone Marro DEPT: BM [...] Marrow TP, GIEMSA STN/8 Supplemental Report Addendum 2 Entered: 03/20/24-190 Supplemental for findings of the FISH Analysis for plasma cell myeloma IgH complex panel from [facility]: -IgH rearrangement to CCND1, FGFR3, MAF, and MAFB are all Not Detected but Atypical Addendum Signed (signature on file) Chin-Emilio Paulino MD 03/20/241905 Addendum 1 Entered: 03/19/24-1040 Supplemental for findings of Cytogenetics study from [facility]: -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,XY, add(6)(q13),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;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;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 ),+11,+2m Specimen: [id number] Received: 03/06/24 Status: URVASHI Miranda Num: [id number] Spec Type: Bone Kylee Valle Dr: Bertha Cuevas MD Tissues: A Bone Marrow Aspirate (Clot) (LT POST SUP ILIAC) B Bone Marrow Biopsy/Core (LT POST SUP ILIAC) Procedures: Reticulum I, Peripheral Smr, Iron/5, HE/6, Gross/Micro L4/2, Bm Smear/2, CD138/3, CD20, CD3, CD31, CD34, CD56, CD68, CYCLIN D1, E CADHERIN, Decalcification, PAS - Hemat, Bone Marrow TP, GIEMSA STN8 Patient: Neil Wilcox [id number] (Continued) Specimen: [id number] Received: 03/06/24 (Continued) Supplemental Report (Continued) Signed (signature on file) Chaitanya Paulino MD 03/17/24 1856 Specimen: [id number] Received: 03/06/24 Status: URVASHI Miranda Num: [id number] Spec Type: Bone Kylee Valle Dr: Bertha Cuevas MD Tissues: A Bone Marrow Aspirate (Clot) (LT POST SUP ILIAC) B Bone Marrow Biopsy/Core (LT POST SUP ILIAC) Procedures: Reticulum I, Peripheral Smr, Iron/5, HE/6, Gross/Micro L4/2, Bm Smear/2, CD138/3, CD20, CD3, CD31, CD34, CD56, CD68, CYCLIN D1, E CADHERIN, Decalcification, PAS - Hemat, Bone Marrow TP, GIEMSA STN/8 Patient: Neil Wilcox [id number] (Continued) Specimen: [id number] Received: 03/06/24 (Continued) Supplemental Report (Continued) ar[cp3]/46,XY[18] Addendum Signed (signature on file) Manuel-Emilio Paulino MD 03/19/24 1040 Pathological Diagnosis A and B, left posterior [...] the KMT2A (MLL) (11q23), and RPN1/MECOM (3q) (more content not included)... Normal [facility] Peripheral white blood cell differential % bands, microscopic examOrdered By: Bertha Cuevas on 03-06-2024 Band form neutrophils/100 WBC (Bld) 1 % Normal 0-5 [facility] Comment on above: Performed By: #### P TT, BMP, HS TROP, PT, CK, BNP, DIFF CBC #### [facility] [address] ABO/Rh Retypeon 03-05-2024 ABO/RH Recheck Result Positive Normal [facility] Comment on above: Result Comment: PERF ORMED BY: [facility] [address] [place] [address] PATHOLOGIST SINKER WINDER OTTO HARLEY M.D. Activated partial thrombopla stin time (aPTT) in platelet poor plasma by coagulation aOrdered By: Trung Armenta on 03-05-2024 aPTT Coag (PPP) [Time] 29.7 s 25.1-36.5 [facility] Comment on above: A hematocrit value g reater than 55% may lead to inaccurate results in coagulation testing. Patients having hematocrit values >55% require a special collection tube for coagulation studies. Please contact the laboratory at [phone] for redraw instructions. Alanine aminotransferase [En zymatic activity/volume] in Serum or PlasmaOrdered By: Bertha Cuevas on 03-05-2024 ALT [Catalytic activity/Vol] 10 U/L Normal 7-52 [facility] Comment on above: Performed By: #### C MP ####[address] Albumin [Mass/volume] in Ser um or Plasma by Bromocresol green (BCG) dye binding methoOrdered By: Bertha Cuevas on 03-05-2024 Albumin BCG dye [Mass/Vol] 3.1 g/dL Low 3.5-5.7 [facility] Alkaline phosphatase [Enzyma tic activity/volume] in Serum or PlasmaOrdered By: Bertha Cuevas on 03-05-2024 ALP [Catalytic activity/Vol] 61 U/L Normal 34-104 [facility] Comment on above: Result Comment: PERF ORMED BY: [place] [address] PATHOLOGIST SINKER WINDER OTTO HARLEY M.D. Performed By: #### C MP ####[address] Anisocytosis [Presence] in B lood by Light microscopyOrdered By: Trung Armenta on 03-05-2024 Anisocytosis Ql (Bld) Moderate Normal [facility] Comment on above: Performed By: #### P TT, BMP, HS TROP, PT, CK, BNP, DIFF CBC #### [address] Aspartate aminotransferase [ Enzymatic activity/volume] in Serum or PlasmaOrdered By: Bertha Cuevas on 03-05-2024 AST [Catalytic activity/Vol] 16 U/L Normal 13-39 [facility] Comment on above: Performed By: #### C MP ####[address] Automated epithelial cells c ount in urine sediment (number/area)Ordered By: Trung Armenta on 03-05-2024 Epithelial cells Auto (Urine sed) [#/Area] 0-1 [HPF] 0-2 [facility] BNP ser/plasOrdered By: Trudi Armenta on 03-05-2024 Natriuretic peptide B (Bld) [Mass/Vol] 108.0 pg/mL High 5-100 [facility] Comment on above: Result Comment: PERF ORMED BY: [place] [address] PATHOLOGIST SINKER WINDER OTTO HARLEY M.D. Performed By: #### P TT, BMP, HS TROP, PT, CK, BNP, DIFF CBC #### [address] Bacteria [Presence] in Urine by AutomatedOrdered By: Trung Armenta on 03-05-2024 Bacteria Auto Ql (U) None seen [HPF] None Seen [facility] Basic Metabolic Panelon 02-22 Creatinine Clr Calc Pharmacy 28.70 Normal [facility] Comment on above: Result Comment: PERF ORMED BY: [place] [address] PATHOLOGIST SINKER WINDER OTTO HARLEY M.D. Performed By: #### P TT, BMP, HS TROP, PT, CK, BNP, DIFF CBC #### [address] GFR/1.73 sq M.predicted MDRD (S/P/Bld) [Vol rate/Area] 30.449 mL/min/{1.73_m2} Normal [facility] Comment on above: Performed By: #### P TT, BMP, HS TROP, PT, CK, BNP, DIFF CBC #### [address] Basophils Auto (Bld) [#/Vol] Ordered By: Trung Armenta on 03-05-2024 Basophils (Bld) [#/Vol] N/A [facility] Basophils/100 WBC Auto (Bld) Ordered By: Trung Armenta on 03-05-2024 Basophils/100 WBC (Bld) N/A [facility] Basophils/100 leukocytes in Blood by Manual countOrdered By: Trung Armenta on 03-05-2024 Basophils/100 WBC (Bld) 0 % Normal 0-2 [facility] Comment on above: Performed By: #### P TT, BMP, HS TROP, PT, CK, BNP, DIFF CBC #### [address] Bilirubin Test strip Ql (U)O rdered By: Trung Armenta on 03-05-2024 Bilirubin Ql (U) Negative Negative [facility] Bilirubin.total [Mass/volume ] in Serum or PlasmaOrdered By: Bertha Cuevas on 03-05-2024 Bilirubin [Mass/Vol] 0.4 mg/dL Normal 0.3-1.0 [facility] Comment on above: Performed By: #### C MP ####[place] [id number] [address] Calcium [Mass/volume] in Ser um or PlasmaOrdered By: artem Cuevas on 03-05-2024 Calcium [Mass/Vol] 9.8 mg/dL Normal 8.6-10.3 [facility] Comment on above: Performed By: #### C MP ####[address] Calcium [Mass/volume] in Ser um or PlasmaOrdered By: Trung Armenta on 03-05-2024 Calcium [Mass/Vol] 9.9 mg/dL Normal 8.6-10.3 [facility] Comment on above: Performed By: #### P TT, BMP, HS TROP, PT, CK, BNP, DIFF CBC #### [facility] [address] [place] [address] [place] Carbon dioxide, total [Moles /volume] in Serum or PlasmaOrdered By: Bertha Pearce on 03-05-2024 CO2 [Moles/Vol] 18.7 mmol/L Low 21.0-31.0 [facility] Comment on above: Performed By: #### C MP ####[place] [address] [place] Carbon dioxide, total [Moles /volume] in Serum or PlasmaOrdered By: Trung Armenta on 03-05-2024 CO2 [Moles/Vol] 24.0 mmol/L Normal 21.0-31.0 [facility] Comment on above: Performed By: #### P TT, BMP, HS TROP, PT, CK, BNP, DIFF CBC #### [facility] [address] Chloride [Moles/volume] in S dustin or PlasmaOrdered By: Bertha Cuevas on 03-05-2024 Chloride [Moles/Vol] 104 mmol/L Normal 98-107 [facility] Comment on above: Performed By: #### C MP ####[facility] [place] [address] Chloride [Moles/volume] in S dustin or PlasmaOrdered By: Trung Armenta on 03-05-2024 Chloride [Moles/Vol] 103 mmol/L Normal 98-107 [facility] Comment on above: Performed By: #### P TT, BMP, HS TROP, PT, CK, BNP, DIFF CBC #### [address] Color of Urine by AutoOrdere d By: Trung Armenta on 03-05-2024 Color (U) Yellow Normal Yellow [facility] Comment on above: Order Comment: Name Collection Type:: Clean-Voided Midstream Performed By: #### P TT, BMP, HS TROP, PT, CK, BNP, DIFF CBC #### [address] Complete Blood Count Auto Di ffon 03-05-2024 Mean Corpuscular HGB Conc 34.6 g/dL Normal 32.5-35.6 [facility] Comment on above: Order Comment: STAT FOR BX Performed By: #### P TT, BMP, HS TROP, PT, CK, BNP, DIFF CBC #### [address] Comprehensive Metabolic Pane melvin 03-05-2024 Albumin [Mass/Vol] 3.1 g/dL Low 3.5-5.7 [facility] Comment on above: Performed By: #### C MP ####[address] GFR/1.73 sq M.predicted MDRD (S/P/Bld) [Vol rate/Area] 31.659 mL/min/{1.73_m2} Normal [facility] Comment on above: Performed By: #### C MP ####[facility] [place] [address] Creatine kinase [Enzymatic a ctivity/volume] in Serum or PlasmaOrdered By: Trung Armenta on 03-05-2024 CK [Catalytic activity/Vol] 60 U/L Normal 30-223 [facility] Comment on above: Performed By: #### P TT, BMP, HS TROP, PT, CK, BNP, DIFF CBC #### [facility] [address] Creatinine [Mass/volume] in Serum or PlasmaOrdered By: Bertha Cuevas on 03-05-2024 Creatinine [Mass/Vol] 2.12 mg/dL High 0.70-1.30 [facility] Comment on above: Performed By: #### C MP ####[address] Creatinine [Mass/volume] in Serum or PlasmaOrdered By: Trung Armenta on 03-05-2024 Creatinine [Mass/Vol] 2.19 mg/dL High 0.70-1.30 [facility] Comment on above: Performed By: #### P TT, BMP, HS TROP, PT, CK, BNP, DIFF CBC #### [facility] [address] [place] [address] [place] Diff and CBCon 03-05-2024 Macrocytosis Slight Normal [facility] Comment on above: Performed By: #### P TT, BMP, HS TROP, PT, CK, BNP, DIFF CBC #### [address] Mean Corpuscular HGB Conc 34.4 g/dL Normal 32.5-35.6 [facility] Comment on above: Performed By: #### P TT, BMP, HS TROP, PT, CK, BNP, DIFF CBC #### [address] Monocyte Distribution Width Normal 0.00-20.00 [facility] Comment on above: Result Comment: The predictive value of MDW for identifying sepsis in patients with hematological abnormalities has not been established Performed By: #### P TT, BMP, HS TROP, PT, CK, BNP, DIFF CBC #### [address] Platelet Estimate Decreased Normal Normal [facility] Comment on above: Performed By: #### P TT, BMP, HS TROP, PT, CK, BNP, DIFF CBC #### [address] Platelet Morphology Normal Normal Normal [facility] Comment on above: Result Comment: PERF ORMED BY: [place] [address] PATHOLOGIST SINKER WINDER OTTO HARLEY M.D. Performed By: #### P TT, BMP, HS TROP, PT, CK, BNP, DIFF CBC #### [address] Dipstick and Microscopicon 0 03-05-2024 Appearance (U) Clear Normal Clear [facility] Comment on above: Order Comment: Name Collection Type:: Clean-Voided Midstream Performed By: #### P TT, BMP, HS TROP, PT, CK, BNP, DIFF CBC #### [address] Bacteria,Urine None Seen Normal None Seen [facility] Comment on above: Order Comment: Name Collection Type:: Clean-Voided Midstream Performed By: #### P TT, BMP, HS TROP, PT, CK, BNP, DIFF CBC #### [address] Bilirubin,Urine Negative Normal Negative [facility] Comment on above: Order Comment: Name Collection Type:: Clean-Voided Midstream Performed By: #### P TT, BMP, HS TROP, PT, CK, BNP, DIFF CBC #### [address] Glucose Ql (U) Normal Normal Normal [facility] Comment on above: Order Comment: Name Collection Type:: Clean-Voided Midstream Performed By: #### P TT, BMP, HS TROP, PT, CK, BNP, DIFF CBC #### [address] Hyaline Casts,Urine 0-8 Normal 0-8 [facility] Comment on above: Order Comment: Name Collection Type:: Clean-Voided Midstream Result Comment: PERF ORMED BY: [place] [address] PATHOLOGIST SINKER WINDER OTTO HARLEY M.D. Performed By: #### P TT, BMP, HS TROP, PT, CK, BNP, DIFF CBC #### [address] Ketones Ql (U) Negative Normal Negative [facility] Comment on above: Order Comment: Name Collection Type:: Clean-Voided Midstream Performed By: #### P TT, BMP, HS TROP, PT, CK, BNP, DIFF CBC #### [address] Leukocyte esterase Test strip Ql (U) Negative Normal Negative [facility] Comment on above: Order Comment: Name Collection Type:: Clean-Voided Midstream Performed By: #### P TT, BMP, HS TROP, PT, CK, BNP, DIFF CBC #### [address] Nitrite,Urine Negative Normal Negative [facility] Comment on above: Order Comment: Name Collection Type:: Clean-Voided Midstream Performed By: #### P TT, BMP, HS TROP, PT, CK, BNP, DIFF CBC #### [address] Occult Blood,Urine Negative Normal Negative [facility] Comment on above: Order Comment: Name Collection Type:: Clean-Voided Midstream Result Comment: PERF ORMED BY: [place] [address] PATHOLOGIST SINKER WINDER OTTO HARLEY M.D. Performed By: #### P TT, BMP, HS TROP, PT, CK, BNP, DIFF CBC #### [address] RBC,Urine 1-2 Normal 0-4 [facility] Comment on above: Order Comment: Name Collection Type:: Clean-Voided Midstream Performed By: #### P TT, BMP, HS TROP, PT, CK, BNP, DIFF CBC #### [address] Specificy [place],Urine 1.018 Normal 1.001-1.03 0 [facility] Comment on above: Order Comment: Name Collection Type:: Clean-Voided Midstream Performed By: #### P TT, BMP, HS TROP, PT, CK, BNP, DIFF CBC #### [address] Squamous Epithelial Cell,Urine 0-1 Normal 0-2 [facility] Comment on above: Order Comment: Name Collection Type:: Clean-Voided Midstream Performed By: #### P TT, BMP, HS TROP, PT, CK, BNP, DIFF CBC #### [address] Urobilinogen,Urine Normal Normal Normal [facility] Comment on above: Order Comment: Name Collection Type:: Clean-Voided Midstream Performed By: #### P TT, BMP, HS TROP, PT, CK, BNP, DIFF CBC #### [address] WBC,Urine 3-4 Normal 0-4 [facility] Comment on above: Order Comment: Name Collection Type:: Clean-Voided Midstream Performed By: #### P TT, BMP, HS TROP, PT, CK, BNP, DIFF CBC #### [address] ECG 12 lead ECGon 03-05-2024 ECG 12 lead ECG [facility] [place] [address] Electrocardiograph Report Signed Patient: Neil Wilcox MR#: [id number] : 1945 Acct:[id number] Age/Sex: 78 / M ADM Date: 03/05/24 Loc: ER Room: Type: [facility] ER Attending Dr: Ordering Provider: Trung [...] By Trung Armenta DO 1437 Normal [facility] Eosinophils Auto (Bld) [#/Vo l]Ordered By: Trung Armenta on 03-05-2024 Eosinophils (Bld) [#/Vol] N/A [facility] Eosinophils/100 WBC Auto (Bl d)Ordered By: Trung Armenta on 03-05-2024 Eosinophils/100 WBC (Bld) N/A [facility] Eosinophils/100 leukocytes i n Blood by Manual countOrdered By: Trung rAmenta on 03-05-2024 Eosinophils/100 WBC (Bld) 10 % High 1-3 [facility] Comment on above: Performed By: #### P TT, BMP, HS TROP, PT, CK, BNP, DIFF CBC #### [facility] [address] Erythrocyte distribution wid th [Ratio] by Automated countOrdered By: Bertha Pearce on 03-05-2024 Erythrocyte distribution width (RBC) [Ratio] 19.3 % High 12.0-14.8 [facility] Comment on above: Order Comment: STAT FOR BX Performed By: #### P TT, BMP, HS TROP, PT, CK, BNP, DIFF CBC #### [facility] [address] Erythrocyte distribution wid th [Ratio] by Automated countOrdered By: Trung Armenta on 03-05-2024 Erythrocyte distribution width (RBC) [Ratio] 19.4 % High 12.0-14.8 [facility] Comment on above: Performed By: #### P TT, BMP, HS TROP, PT, CK, BNP, DIFF CBC #### [facility] [address] Erythrocytes [#/area] in Uri ne sediment by Automated countOrdered By: Trung Armenta on 03-05-2024 RBC Auto (Urine sed) [#/Area] 1-2 [HPF] 0-4 [facility] Erythrocytes [#/volume] in B lood by Automated countOrdered By: Bertha Cuevas on 03-05-2024 RBC (Bld) [#/Vol] 2.25 10*6/uL Low 3.90-5.60 [facility] Comment on above: Order Comment: STAT FOR BX Performed By: #### P TT, BMP, HS TROP, PT, CK, BNP, DIFF CBC #### [address] Erythrocytes [#/volume] in B lood by Automated countOrdered By: Trung Armenta on 03-05-2024 RBC (Bld) [#/Vol] 1.93 10*6/uL Low 3.90-5.60 [facility] Comment on above: Performed By: #### P TT, BMP, HS TROP, PT, CK, BNP, DIFF CBC #### [address] Glucose [Mass/volume] in Ser um or PlasmaOrdered By: Bertha Cuevas on 03-05-2024 Glucose [Mass/Vol] 110 mg/dL High 70-100 [facility] Comment on above: ADA recommended refe rence rangeRandom Glucose Reference Range is dependent on time and content of last meal. Glucose of more than 200 mg/dL in a nonstressed, ambulatory subject supports the diagnosis of Diabetes Mellitus. Result Comment: [place] Glucose Reference Range is dependent on time and content of last meal. Glucose of more than 200 mg/dL in a nonstressed, ambulatory subject supports the diagnosis of Diabetes Mellitus. ADA recommended reference range Performed By: #### C MP ####[facility] [address] Glucose [Mass/volume] in Ser um or PlasmaOrdered By: Trung Armenta on 03-05-2024 Glucose [Mass/Vol] 113 mg/dL High 70-100 [facility] Comment on above: ADA recommended refe rence rangeRandom Glucose Reference Range is dependent on time and content of last meal. Glucose of more than 200 mg/dL in a nonstressed, ambulatory subject supports the diagnosis of Diabetes Mellitus. Result Comment: [place] Glucose Reference Range is dependent on time and content of last meal. Glucose of more than 200 mg/dL in a nonstressed, ambulatory subject supports the diagnosis of Diabetes Mellitus. ADA recommended reference range Performed By: #### P TT, BMP, HS TROP, PT, CK, BNP, DIFF CBC #### [address] Hematocrit [Volume Fraction] of Blood by Automated countOrdered By: Bertha Pearce on 03-05-2024 Hematocrit (Bld) [Volume fraction] 23.5 % Low 38.8-50.0 [facility] Comment on above: Order Comment: STAT FOR BX Performed By: #### P TT, BMP, HS TROP, PT, CK, BNP, DIFF CBC #### [address] Hematocrit [Volume Fraction] of Blood by Automated countOrdered By: Trung Armenta on 03-05-2024 Hematocrit (Bld) [Volume fraction] 20.1 % Low 38.8-50.0 [facility] Comment on above: Performed By: #### P TT, BMP, HS TROP, PT, CK, BNP, DIFF CBC #### [address] Hemoglobin [Mass/volume] in BloodOrdered By: Bertha Cuevas on 03-05-2024 Hemoglobin (Bld) [Mass/Vol] 8.1 g/dL Low 13.0-17.0 [facility] Comment on above: Order Comment: STAT FOR BX Performed By: #### P TT, BMP, HS TROP, PT, CK, BNP, DIFF CBC #### [facility] [address] Hemoglobin [Mass/volume] in BloodOrdered By: Trung Armenta on 03-05-2024 Hemoglobin (Bld) [Mass/Vol] 6.9 g/dL Low 13.0-17.0 [facility] Comment on above: Performed By: #### P TT, BMP, HS TROP, PT, CK, BNP, DIFF CBC #### [address] Hemoglobin and Hematocriton 03-05-2024 Hematocrit (Bld) [Volume fraction] 24.9 % Low 38.8-50.0 [facility] Comment on above: Result Comment: PERF ORMED BY: [place] [address] PATHOLOGIST SINKER WINDER OTTO HARLEY M.D. Performed By: #### H H ####[address] Hemoglobin (Bld) [Mass/Vol] 8.6 g/dL Low 13.0-17.0 [facility] Comment on above: Performed By: #### H H ####[address] INR in Platelet poor plasma by Coagulation assayOrdered By: Trung Armenta on 03-05-2024 INR Coag (PPP) [Relative time] 1.3 {INR} Normal [facility] Comment on above: INR Therapeutic Rang e [...] CK, BNP, DIFF CBC #### [facility] [address] Ketones Auto test strip (U) [Mass/Vol]Ordered By: Trung Armenta on 03-05-2024 Ketones (U) [Mass/Vol] Negative Negative [facility] - UrinalysisOrder ed By: Trung Armenta on 03-05-2024 Hyaline casts LM Ql (Urine sed) 0-8 [LPF] 0-8 [facility] LeukoReduced RBCon LeukoReduced RBC TRANSFUSED 03/05/24 1636 Normal [facility] Leukocytes [#/area] in Urine sediment by Automated countOrdered By: Trung Armenta on 03-05-2024 WBC Auto (Urine sed) [#/Area] 3-4 [HPF] 0-4 [facility] Leukocytes [#/volume] correc myrtle for nucleated erythrocytes in Blood by Automated counOrdered By: Bertha Cuevas on 03-05-2024 WBC corrected for nucl RBC Auto (Bld) [#/Vol] 1.5 10*3/uL Low 4.1-10.5 [facility] Leukocytes [#/volume] correc myrtle for nucleated erythrocytes in Blood by Automated counOrdered By: Trung Armenta on 03-05-2024 WBC corrected for nucl RBC Auto (Bld) [#/Vol] 1.6 10*3/uL 4.1-10.5 [facility] Leukocytes [#/volume] in Blo od by Automated countOrdered By: Bertha Cuevas on 03-05-2024 WBC (Bld) [#/Vol] 1.5 10*3/uL Low 4.1-10.5 [facility] Comment on above: Order Comment: STAT FOR BX Performed By: #### P TT, BMP, HS TROP, PT, CK, BNP, DIFF CBC #### [facility] [address] Leukocytes [#/volume] in Blo od by Automated countOrdered By: Trung Armenta on 03-05-2024 WBC (Bld) [#/Vol] 1.6 10*3/uL Low 4.1-10.5 [facility] Comment on above: Performed By: #### P TT, BMP, HS TROP, PT, CK, BNP, DIFF CBC #### [facility] [address] Lymphocytes Auto (Bld) [#/Vo l]Ordered By: Trung Armenta on 03-05-2024 Lymphocytes (Bld) [#/Vol] N/A [facility] Lymphocytes/100 WBC Auto (Bl d)Ordered By: Trung Armenta on 03-05-2024 Lymphocytes/100 WBC (Bld) N/A [facility] Lymphocytes/100 leukocytes i n Blood by Manual countOrdered By: Trung Armenta on 03-05-2024 Lymphocytes/100 WBC (Bld) 54 % High 18-42 [facility] Comment on above: Performed By: #### P TT, BMP, HS TROP, PT, CK, BNP, DIFF CBC #### [facility] [address] [place] [address] MCH [Entitic mass] by Automa myrtle countOrdered By: Bertha Cuevas on 03-05-2024 MCH (RBC) [Entitic mass] 36.2 pg High 27.5-35.2 [facility] Comment on above: Order Comment: STAT FOR BX Performed By: #### P TT, BMP, HS TROP, PT, CK, BNP, DIFF CBC #### [facility] [address] [place] [address] MCH [Entitic mass] by Automa myrtle countOrdered By: Trung Armenta on 03-05-2024 MCH (RBC) [Entitic mass] 35.9 pg High 27.5-35.2 [facility] Comment on above: Performed By: #### P TT, BMP, HS TROP, PT, CK, BNP, DIFF CBC #### [facility] [address] [place] [address] MCHC Auto (RBC) [Mass/Vol]Or dered By: Bertha Cuevas on 03-05-2024 MCHC (RBC) [Mass/Vol] 34.6 g/dL 32.5-35.6 [facility] MCHC Auto (RBC) [Mass/Vol]Or dered By: Trung Armenta on 03-05-2024 MCHC (RBC) [Mass/Vol] 34.4 g/dL 32.5-35.6 [facility] MCV [Entitic volume] by Auto mated countOrdered By: Bertha Cuevas on 03-05-2024 MCV (RBC) [Entitic vol] 104.6 fL High 83.5-101 [facility] Comment on above: Order Comment: STAT FOR BX Performed By: #### P TT, BMP, HS TROP, PT, CK, BNP, DIFF CBC #### [facility] [address] MCV [Entitic volume] by Auto mated countOrdered By: Trung Armenta on 03-05-2024 MCV (RBC) [Entitic vol] 104.2 fL High 83.5-101 [facility] Comment on above: Performed By: #### P TT, BMP, HS TROP, PT, CK, BNP, DIFF CBC #### [facility] [address] Macrocytes LM Ql (Bld)Ordere d By: Trung Armenta on 03-05-2024 Macrocytes Ql (Bld) Slight [facility] Manual blood segmented neutr ophils/100 leukocytesOrdered By: Trung Armenta on 03-05-2024 Segmented neutrophils/100 WBC (Bld) 31 % Low 50-70 [facility] Comment on above: Performed By: #### P TT, BMP, HS TROP, PT, CK, BNP, DIFF CBC #### [facility] [address] [place] [address] [place] Monocyte distribution width [Entitic volume] in Blood by AutomatedOrdered By: Trung Armenta on 03-05-2024 Monocyte distribution width Auto (Bld) [Entitic vol] See comment 0.00-20.00 [facility] Comment on above: The predictive value of MDW for identifying sepsis in patients with hematological abnormalities has not been established Monocytes Auto (Bld) [#/Vol] Ordered By: Trung Armenta on 03-05-2024 Monocytes (Bld) [#/Vol] N/A [facility] Monocytes/100 WBC Auto (Bld) Ordered By: Trung Armenta on 03-05-2024 Monocytes/100 WBC (Bld) N/A [facility] Monocytes/100 leukocytes in Blood by Manual countOrdered By: Trung Armenta on 03-05-2024 Monocytes/100 WBC (Bld) 0 % Low 2-11 [facility] Comment on above: Performed By: #### P TT, BMP, HS TROP, PT, CK, BNP, DIFF CBC #### [facility] [address] [place] [address] Neutrophils Auto (Bld) [#/Vo l]Ordered By: Trung Armenta on 03-05-2024 Neutrophils (Bld) [#/Vol] N/A [facility] Neutrophils/100 WBC Auto (Bl d)Ordered By: Trung Armenta on 03-05-2024 Neutrophils/100 WBC (Bld) N/A [facility] Nitrite Test strip Ql (U)Ord ered By: Trung Armenta on 03-05-2024 Nitrite Ql (U) Negative Negative [facility] No Panel InformationOrdered By: Bertha Cuevas on 03-05-2024 Estimated GFR (CKD-EPI) 31.659 mL/Min [facility] Creatinine Clearance (Chem N/A [facility] No Panel InformationOrdered By: Trung Armenta on 03-05-2024 Estimated GFR (CKD-EPI) 30.449 mL/Min [facility] Creatinine Clearance (Chem 28.70 [facility] Stool Occult Blood (AMY) [facility] Nucleated erythrocytes [Pres ence] in Blood by Automated countOrdered By: Trung Armenta on 03-05-2024 Nucleated RBC Auto Ql (Bld) N/A [facility] Partial Thromboplastin Timeo n 03-05-2024 aPTT Coag (Bld) [Time] 29.7 s Normal 25.1-36.5 [facility] Comment on above: Result Comment: A he matocrit value greater than 55% may lead to inaccurate results in coagulation testing. Patients having hematocrit values >55% require a special collection tube for coagulation studies. Please contact the laboratory at [phone] for redraw instructions. PERFORMED BY: [place] [address] PATHOLOGIST SINKER WINDER OTTO HARLEY M.D. Performed By: #### P TT, BMP, HS TROP, PT, CK, BNP, DIFF CBC #### [address] Peripheral white blood cell differential % bands, microscopic examOrdered By: Trung Armenta on 03-05-2024 Band form neutrophils/100 WBC (Bld) 5 % Normal 0-5 [facility] Comment on above: Performed By: #### P TT, BMP, HS TROP, PT, CK, BNP, DIFF CBC #### [address] Platelet adequacy [Presence] in Blood by Light microscopyOrdered By: Trung Armenta on 03-05-2024 Platelets LM Ql (Bld) Decreased Normal [facility] Platelet mean volume [Entiti c volume] in Blood by Automated countOrdered By: Bertha Cuevas on 03-05-2024 Platelet mean volume (Bld) [Entitic vol] 8.0 fL Normal 6.6-10.1 [facility] Comment on above: Order Comment: STAT FOR BX Result Comment: PERF ORMED BY: [place] [address] PATHOLOGIST SINKER WINDER OTTO HARLEY M.D. Performed By: #### P TT, BMP, HS TROP, PT, CK, BNP, DIFF CBC #### [place] [id number] [facility] Platelet mean volume [Entiti c volume] in Blood by Automated countOrdered By: Trung Armenta on 03-05-2024 Platelet mean volume (Bld) [Entitic vol] 7.6 fL Normal 6.6-10.1 [facility] Comment on above: Result Comment: PERF ORMED BY: [place] [address] PATHOLOGIST SINKER WINDER OTTO HARLEY M.D. Performed By: #### P TT, BMP, HS TROP, PT, CK, BNP, DIFF CBC #### [facility] [address] Platelet morphology finding [Identifier] in BloodOrdered By: Trung Armenta on 03-05-2024 Platelet morphology finding Nom (Bld) Normal Normal [facility] Platelets [#/volume] in Bloo d by Automated countOrdered By: Bertha Cuevas on 03-05-2024 Platelets (Bld) [#/Vol] 78 10*3/uL Low 150-450 [facility] Comment on above: Order Comment: STAT FOR BX Performed By: #### P TT, BMP, HS TROP, PT, CK, BNP, DIFF CBC #### [facility] [address] [place] [address] [place] Platelets [#/volume] in Bloo d by Automated countOrdered By: Trung Armenta on 03-05-2024 Platelets (Bld) [#/Vol] 67 10*3/uL Low 150-450 [facility] Comment on above: Performed By: #### P TT, BMP, HS TROP, PT, CK, BNP, DIFF CBC #### [facility] [address] [place] [address] Potassium [Moles/volume] in Serum or PlasmaOrdered By: Bertha Cuevas on 03-05-2024 Potassium [Moles/Vol] 4.5 mmol/L Normal 3.5-5.1 [facility] Comment on above: Hemolysis is present at a level that could interfere with the result.Contact lab if redraw is required Result Comment: Hemo lysis is present at a level that could interfere with the result. Contact lab if redraw is required Performed By: #### C MP ####[facility] [place] [address] Potassium [Moles/volume] in Serum or PlasmaOrdered By: Trung Armenta on 03-05-2024 Potassium [Moles/Vol] 4.2 mmol/L Normal 3.5-5.1 [facility] Comment on above: Performed By: #### P TT, BMP, HS TROP, PT, CK, BNP, DIFF CBC #### [facility] [address] Protein [Mass/volume] in Ser um or PlasmaOrdered By: Bertha Cuevas on 03-05-2024 Protein [Mass/Vol] 9.3 g/dL High 6.4-8.9 [facility] Comment on above: Performed By: #### C MP ####[place] [id number] [address] Prothrombin time (PT)Ordered By: Trung Armenta on 03-05-2024 PT Coag (PPP) [Time] 15.0 s High 9.0-12.9 [facility] Comment on above: A hematocrit value g reater than 55% may lead to inaccurate results in coagulation testing. Patients having hematocrit values >55% require a special collection tube for coagulation studies. Please contact the laboratory at [phone] for redraw instructions. Result Comment: A he matocrit value greater than 55% may lead to inaccurate results in coagulation testing. Patients having hematocrit values >55% require a special collection tube for coagulation studies. Please contact the laboratory at [phone] for redraw instructions. Performed By: #### P TT, BMP, HS TROP, PT, CK, BNP, DIFF CBC #### [facility] [address] RBC morphologyOrdered By: Radha Armenta on 03-05-2024 RBC morphology finding Nom (Bld) N/A [facility] Serum globulin measurement b y calculation (mass/volume)Ordered By: Bertha Pearce on 03-05-2024 Globulin (S) [Mass/Vol] 6.2 g/dL Normal [facility] Comment on above: Performed By: #### C MP ####[facility] Serum or plasma albumin/glob ulin mass ratioOrdered By: Bertha Cuevas on 03-05-2024 Albumin/Globulin [Mass ratio] 0.5 {ratio} Normal [facility] Comment on above: Performed By: #### C MP ####[address] Serum or plasma anion gap de terminationOrdered By: artem Cuevas on 03-05-2024 Anion gap [Moles/Vol] 19.8 mmol/L High 6.0-15.0 [facility] Comment on above: Performed By: #### C MP ####[address] Serum or plasma anion gap de terminationOrdered By: Trung Armenta on 03-05-2024 Anion gap [Moles/Vol] 16.2 mmol/L High 6.0-15.0 [facility] Comment on above: Performed By: #### P TT, BMP, HS TROP, PT, CK, BNP, DIFF CBC #### [address] Sodium [Moles/volume] in Ser um or PlasmaOrdered By: artem Cuevas on 03-05-2024 Sodium [Moles/Vol] 138 mmol/L Normal 136-145 [facility] Comment on above: Performed By: #### C MP ####[address] Sodium [Moles/volume] in Ser um or PlasmaOrdered By: rTung Armenta on 03-05-2024 Sodium [Moles/Vol] 139 mmol/L Normal 136-145 [facility] Comment on above: Performed By: #### P TT, BMP, HS TROP, PT, CK, BNP, DIFF CBC #### [place] [address] [place] Specific gravity Auto test s trip (U) [Rel density]Ordered By: Trung Armenta on 03-05-2024 Specific gravity (U) [Rel density] 1.018 1.001-1.03 0 [facility] Stool Occult Bl. Scr. (Guaia c)on 03-05-2024 Stool Occult Bl. Scr. (Guaiac) Occult Blood Negative for Occult Blood by Guaiac Methodology Reference range = Negative PERFORMED BY: [place] [address] PATHOLOGIST SINKER WINDER OTTO HARLEY M.D. Normal [facility] Comment on above: Performed By: #### O BS-GUAIAC #### [address] Troponin I High Sensitivityo n 03-05-2024 Troponin I High Sensitivity 22.3 pg/mL High 0.0-20.0 [facility] Comment on above: Result Comment: PERF ORMED BY: [place] [address] PATHOLOGIST SINKER WINDER OTTO HARLEY M.D. Performed By: #### P TT, BMP, HS TROP, PT, CK, BNP, DIFF CBC #### [facility] [address] [place] [address] Troponin I.cardiac [Mass/vol ume] in Serum or Plasma by Detection limit <= 0.01 ng/Ordered By: Trung Armenta on 03-05-2024 Troponin I.cardiac DL <= 0.01 ng/mL [Mass/Vol] 22.3 pg/mL High 0.0-20.0 [facility] Type and Screenon 03-05-2024 ABO and Rh group Nom (Bld) Blood group A Rh(D) positive Normal [facility] Comment on above: Order Comment: Trans fuse now? Y Number of units to transfuse now? 2 Result Comment: PERF ORMED BY: [place] [address] PATHOLOGIST SINKER WINDER OTTO HARLEY M.D. Urea nitrogen [Mass/volume] in Serum or PlasmaOrdered By: Bertha Cuevas on 03-05-2024 Urea nitrogen [Mass/Vol] 41 mg/dL High 04-17 [facility] Comment on above: Performed By: #### C MP ####[facility] [address] Urea nitrogen [Mass/volume] in Serum or PlasmaOrdered By: Trung Armenta on 03-05-2024 Urea nitrogen [Mass/Vol] 42 mg/dL High 04-17 [facility] Comment on above: Performed By: #### P TT, BMP, HS TROP, PT, CK, BNP, DIFF CBC #### [facility] [address] Urine clarity by refractomet ry automatedOrdered By: Trung Armenta on 03-05-2024 Clarity Refractometry automated (U) Clear Clear [facility] Urine glucose measurement by automated test strip (mass/volume)Ordered By: Trung Armenta on 03-05-2024 Glucose Auto test strip (U) [Mass/Vol] Normal mg/dL Normal [facility] Urine hemoglobin detection b y automated test stripOrdered By: Trung Armenta on 03-05-2024 Hemoglobin Auto test strip Ql (U) Negative Negative [facility] Urine leukocyte esterase det ection by automated test stripOrdered By: Trung Armenta on 03-05-2024 Leukocyte esterase Auto test strip Ql (U) Negative Negative [facility] Urine pH measurement by auto mated test stripOrdered By: Trung Armenta on 03-05-2024 pH (U) 5.5 [pH] Normal 5.0-9.0 [facility] Comment on above: Order Comment: Name Collection Type:: Clean-Voided Midstream Performed By: #### P TT, BMP, HS TROP, PT, CK, BNP, DIFF CBC #### [facility] [address] [place] [address] [place] Urine protein measurement by automated test strip (mass/volume)Ordered By: Trung Armenta on 03-05-2024 Protein (U) [Mass/Vol] 30 mg/dL High Negative [facility] Comment on above: Order Comment: Name Collection Type:: Clean-Voided Midstream Performed By: #### P TT, BMP, HS TROP, PT, CK, BNP, DIFF CBC #### [address] [address] [facility] Urobilinogen Auto test strip (U) [Mass/Vol]Ordered By: Trung Armenta on 03-05-2024 Urobilinogen (U) [Mass/Vol] Normal mg/dL Normal [facility] XR bone surveyon 03-05-2024 XR bone survey [facility] Main [address] [address] XRay Report Signed Patient: Neil Wilcox MR#: [id number] : 1945 Acct:[id number] Age/Sex: 78 / M ADM Date: 03/05/24 Loc: Room: [address] [place] [address] Type: ADM IN Attending Dr: Roslyn Townsend [...] Tobias Tracy M.D.03/05/2024 6:02 PM Dictation Location: [place] [address] Transcribed By: [facility] 03/05/241801 Dictated By: Tobias Tracy DO 03/05/241755 Signed By: 03/05/241801 Normal [facility] XR chest 2V*on 03-05-2024 XR chest 2V* [facility] Main Mobile [address] [place] [address] XRay Report Signed Patient: Neil Wilcox MR#: [id number] : 1945 Acct:[id number] Age/Sex: 78 / M ADM Date: 03/05/24 Loc: ER Room: Type: [facility] ER Attending Dr: Copies to: Trung [...] Tobias Tracy M.D.03/05/2024 12:34 PM Dictation Location: [place] [address] Transcribed By: [facility] 03/05/24 1234 Dictated By: Tobias Tracy DO 03/05/24 1230 Signed By: 03/05/24 1234 Normal [facility] CAMILA Antinuclear Antibodieson 02-26-2024 Antinuclear Abs, IFA Positive Critically abnormal . [facility] Comment on above: Result Comment: Nega tive <1:80 Borderline 1:80 Positive >1:80 Performed By: #### P TT, BMP, HS TROP, PT, CK, BNP, DIFF CBC #### [facility] [address] Homogeneous Pattern 1:320 High . [facility] Comment on above: Result Comment: ICAP nomenclature: AC-1 Performed By: #### P TT, BMP, HS TROP, PT, CK, BNP, DIFF CBC #### [facility] [address] [place] [address] [place] Note 1 Normal . [facility] Comment on above: Result Comment: Yamel bah Potential Disease Association Homogeneous Systemic Lupus Erythematosus, Drug Induced Systemic Lupus Erythematosus, Chronic Autoimmune hepatitis, Juvenile Idiopathic Arthritis Speckled Sjogren Syndrome, Systemic Lupus Erythematosus, Subacute Cutaneous Lupus, Lupus, Congenital Heart Block, Mixed Connective Tissue Disease, Scleroderma-diffuse, Scleroderma-Autoimmune Myositis Overlap Syndrome, Systemic Lupus Umvntrahrztmy-Tejlojniszu-Ntwxsjensr Myositis Overlap Syndrome, Systemic Autoimmune Rheumatic Disease, [...] Scleroderma, Antiphospholipid Syndrome Performed at: - [facility] [address] [id number] Conference Producer: J Carlos Blackman PhD, Phone: [phone] Performed By: #### P TT, BMP, HS TROP, PT, CK, BNP, DIFF CBC #### [facility] [address] Absolute reticulocyte countO rdered By: Bertha Cuevas on 02-26-2024 Reticulocytes (Bld) [#/Vol] 0.002 10*6/uL Low 0.024-0.08 4 [facility] Alanine aminotransferase [En zymatic activity/volume] in Serum or PlasmaOrdered By: Bertha Cuevas on 02-26-2024 ALT [Catalytic activity/Vol] 10 U/L Normal 7-52 [facility] Comment on above: Performed By: #### P LT AB S, SPE, RA, HBSAG, HIV SCREEN, KAPPA, HBSAB, HCV RX PCR, CAMILA, SADIE, HBCAB, SKIP SERUM, CU ####[facility] ,#### FISH NOT BLAD, MARÍA, TSH3, FLOW NEOGENOMIC, CMP, RETIC, CYTOGENE, SCAN CBC, FE and TIBC, T4F, [id number], LDH ####[facility] [address] [place] [address] [place] Albumin [Mass/volume] in Ser um or PlasmaOrdered By: Bertha Cuevas on 02-26-2024 Albumin [Mass/Vol] 3.4 g/dL Normal 2.9-4.4 [facility] Comment on above: Performed By: #### P TT, BMP, HS TROP, PT, CK, BNP, DIFF CBC #### [facility] [address] [place] [id number] [place] Albumin [Mass/volume] in Ser um or Plasma by Bromocresol green (BCG) dye binding methoOrdered By: artem Cuevas on 02-26-2024 Albumin BCG dye [Mass/Vol] 3.5 g/dL 3.5-5.7 [facility] Alkaline phosphatase [Enzyma tic activity/volume] in Serum or PlasmaOrdered By: artem Cuevas on 02-26-2024 ALP [Catalytic activity/Vol] 71 U/L Normal 34-104 [facility] Comment on above: Performed By: #### P LT AB S, SPE, RA, HBSAG, HIV SCREEN, KAPPA, HBSAB, HCV RX PCR, CAMILA, SADIE, HBCAB, SKIP SERUM, CU ####[facility] ,#### FISH NOT BLAD, MARÍA, TSH3, FLOW NEOGENOMIC, CMP, RETIC, CYTOGENE, SCAN CBC, FE and TIBC, T4F, [id number], LDH ####[place] [address] [place] [address] [place] Anisocytosis [Presence] in B lood by Light microscopyOrdered By: artem Cuevas on 02-26-2024 Anisocytosis Ql (Bld) Marked Normal [facility] Comment on above: Performed By: #### P LT AB S, SPE, RA, HBSAG, HIV SCREEN, KAPPA, HBSAB, HCV RX PCR, CAMILA, SADIE, HBCAB, SKIP SERUM, CU ####[facility] ,#### FISH NOT BLAD, MARÍA, TSH3, FLOW NEOGENOMIC, CMP, RETIC, CYTOGENE, SCAN CBC, FE and TIBC, T4F, [id number], LDH ####[facility] [place] [id number] [place] Aspartate aminotransferase [ Enzymatic activity/volume] in Serum or PlasmaOrdered By: Bertha Cuevas on 02-26-2024 AST [Catalytic activity/Vol] 12 U/L Low 13-39 [facility] Comment on above: Performed By: #### P LT AB S, SPE, RA, HBSAG, HIV SCREEN, KAPPA, HBSAB, HCV RX PCR, CAMILA, SADIE, HBCAB, SKIP SERUM, CU ####[facility] ,#### FISH NOT BLAD, MARÍA, TSH3, FLOW NEOGENOMIC, CMP, RETIC, CYTOGENE, SCAN CBC, FE and TIBC, T4F, [id number], LDH ####[address] Automated basophil %Ordered By: artem Cuevas on 02-26-2024 Basophils/100 WBC (Bld) 0.2 % Normal . [facility] Comment on above: Performed By: #### P LT AB S, SPE, RA, HBSAG, HIV SCREEN, KAPPA, HBSAB, HCV RX PCR, CAMILA, SADIE, HBCAB, SKIP SERUM, CU ####[facility] ,#### FISH NOT BLAD, MARÍA, TSH3, FLOW NEOGENOMIC, CMP, RETIC, CYTOGENE, SCAN CBC, FE and TIBC, T4F, [id number], LDH ####[address] Automated basophil countOrde red By: artem Cuevas on 02-26-2024 Basophils (Bld) [#/Vol] 0.0 10*3/uL Normal 0.0-0.2 [facility] Comment on above: Performed By: #### P LT AB S, SPE, RA, HBSAG, HIV SCREEN, KAPPA, HBSAB, HCV RX PCR, CAMILA, SADIE, HBCAB, SKIP SERUM, CU ####[facility] ,#### FISH NOT BLAD, MARÍA, TSH3, FLOW NEOGENOMIC, CMP, RETIC, CYTOGENE, SCAN CBC, FE and TIBC, T4F, [id number], LDH ####[address] Automated blood monocyte cou ntOrdered By: artem Cuevas on 02-26-2024 Monocytes (Bld) [#/Vol] 0.0 10*3/uL Normal 0.0-0.8 [facility] Comment on above: Performed By: #### P LT AB S, SPE, RA, HBSAG, HIV SCREEN, KAPPA, HBSAB, HCV RX PCR, CAMILA, SADIE, HBCAB, SKIP SERUM, CU ####[facility] ,#### FISH NOT BLAD, MARÍA, TSH3, FLOW NEOGENOMIC, CMP, RETIC, CYTOGENE, SCAN CBC, FE and TIBC, T4F, [id number], LDH ####[place] [address] [address] Automated eosinophil %Ordere d By: Bertha Cuevas on 02-26-2024 Eosinophils/100 WBC (Bld) 10.5 % Normal . [facility] Comment on above: Performed By: #### P LT AB S, SPE, RA, HBSAG, HIV SCREEN, KAPPA, HBSAB, HCV RX PCR, CAMILA, SADIE, HBCAB, SKIP SERUM, CU ####[facility] ,#### FISH NOT BLAD, MARÍA, TSH3, FLOW NEOGENOMIC, CMP, RETIC, CYTOGENE, SCAN CBC, FE and TIBC, T4F, [id number], LDH ####[address] Automated eosinophil countOr dered By: Bertha Cuevas on 02-26-2024 Eosinophils (Bld) [#/Vol] 0.3 10*3/uL Normal 0.0-0.45 [facility] Comment on above: Performed By: #### P LT AB S, SPE, RA, HBSAG, HIV SCREEN, KAPPA, HBSAB, HCV RX PCR, CAMILA, SADIE, HBCAB, SKIP SERUM, CU ####[facility] ,#### FISH NOT BLAD, MARÍA, TSH3, FLOW NEOGENOMIC, CMP, RETIC, CYTOGENE, SCAN CBC, FE and TIBC, T4F, [id number], LDH ####[address] Automated monocyte %Ordered By: Bertha Cuevas on 02-26-2024 Monocytes/100 WBC (Bld) 1.4 % Normal . [facility] Comment on above: Performed By: #### P LT AB S, SPE, RA, HBSAG, HIV SCREEN, KAPPA, HBSAB, HCV RX PCR, CAMILA, SADIE, HBCAB, SKIP SERUM, CU ####[facility] ,#### FISH NOT BLAD, MARÍA, TSH3, FLOW NEOGENOMIC, CMP, RETIC, CYTOGENE, SCAN CBC, FE and TIBC, T4F, [id number], LDH ####[facility] [id number] [place] [id number] [facility] Automated neutrophil %Ordere d By: Bertha Cuevas on 02-26-2024 Neutrophils/100 WBC (Bld) 44.9 % Normal . [facility] Comment on above: Performed By: #### P LT AB S, SPE, RA, HBSAG, HIV SCREEN, KAPPA, HBSAB, HCV RX PCR, CAMILA, SADIE, HBCAB, SKIP SERUM, CU ####[facility] ,#### FISH NOT BLAD, MARÍA, TSH3, FLOW NEOGENOMIC, CMP, RETIC, CYTOGENE, SCAN CBC, FE and TIBC, T4F, [id number], LDH ####[facility] [id number] [place] [id number] [facility] Basophil percentageOrdered B y: Bertha Cuevas on 02-26-2024 Basophil percentage 109 ug/dL 69-132 [facility] Comment on above: This test was develo ped and its performance characteristicsdetermined by [facility]. It has not been cleared orapproved by the Food and Drug Administration. Detection Limit = 5Performed at: [facility] [id number] [place], [place] [id number] Director: Mary Jane Maya MD, Phone: [phone] Bilirubin.total [Mass/volume ] in Serum or PlasmaOrdered By: Bertha Cuevas on 02-26-2024 Bilirubin [Mass/Vol] 0.8 mg/dL Normal 0.3-1.0 [facility] Comment on above: Performed By: #### P LT AB S, SPE, RA, HBSAG, HIV SCREEN, KAPPA, HBSAB, HCV RX PCR, CAMILA, SADIE, HBCAB, SKIP SERUM, CU ####[facility] ,#### FISH NOT BLAD, MARÍA, TSH3, FLOW NEOGENOMIC, CMP, RETIC, CYTOGENE, SCAN CBC, FE and TIBC, T4F, [id number], LDH ####[place] [id number] Blood platelet glycoprotein Ib/IX IgG antibody detection by immunoassayOrdered By: Bertha Cuevas on 02-26-2024 Platelet glycoprotein Ib/Ix IgG IA Ql (Bld) Negative Negative [facility] Calcium [Mass/volume] in Ser um or PlasmaOrdered By: Bertha Cuevas on 02-26-2024 Calcium [Mass/Vol] 12.1 mg/dL High 8.6-10.3 [facility] Comment on above: Performed By: #### P LT AB S, SPE, RA, HBSAG, HIV SCREEN, KAPPA, HBSAB, HCV RX PCR, CAMILA, SADIE, HBCAB, SKIP SERUM, CU ####[facility] ,#### FISH NOT BLAD, MARÍA, TSH3, FLOW NEOGENOMIC, CMP, RETIC, CYTOGENE, SCAN CBC, FE and TIBC, T4F, [id number], LDH ####[address] Carbon dioxide, total [Moles /volume] in Serum or PlasmaOrdered By: Bertha Pearce on 02-26-2024 CO2 [Moles/Vol] 25.2 mmol/L Normal 21.0-31.0 [facility] Comment on above: Performed By: #### P LT AB S, SPE, RA, HBSAG, HIV SCREEN, KAPPA, HBSAB, HCV RX PCR, CAMILA, SADIE, HBCAB, SKIP SERUM, CU ####[facility] ,#### FISH NOT BLAD, MARÍA, TSH3, FLOW NEOGENOMIC, CMP, RETIC, CYTOGENE, SCAN CBC, FE and TIBC, T4F, [id number], LDH ####[place] [id number] [place] Chloride [Moles/volume] in S dustin or PlasmaOrdered By: Bertha Cuevas on 02-26-2024 Chloride [Moles/Vol] 104 mmol/L Normal 98-107 [facility] Comment on above: Performed By: #### P LT AB S, SPE, RA, HBSAG, HIV SCREEN, KAPPA, HBSAB, HCV RX PCR, CAMILA, SADIE, HBCAB, SKIP SERUM, CU ####[facility] ,#### FISH NOT BLAD, MARÍA, TSH3, FLOW NEOGENOMIC, CMP, RETIC, CYTOGENE, SCAN CBC, FE and TIBC, T4F, [id number], LDH ####[place] [address] Comprehensive Metabolic Pane melvin 02-26-2024 Albumin [Mass/Vol] 3.5 g/dL Normal 3.5-5.7 [facility] Comment on above: Performed By: #### P LT AB S, SPE, RA, HBSAG, HIV SCREEN, KAPPA, HBSAB, HCV RX PCR, CAMILA, SADIE, HBCAB, SKIP SERUM, CU ####[facility] ,#### FISH NOT BLAD, MARÍA, TSH3, FLOW NEOGENOMIC, CMP, RETIC, CYTOGENE, SCAN CBC, FE and TIBC, T4F, [id number], LDH ####[place] [address] [place] [id number] [facility] Creatinine Clr Calc Pharmacy 43.64 Normal [facility] Comment on above: Performed By: #### P LT AB S, SPE, RA, HBSAG, HIV SCREEN, KAPPA, HBSAB, HCV RX PCR, CAMILA, SADIE, HBCAB, SKIP SERUM, CU ####[facility] ,#### FISH NOT BLAD, MARÍA, TSH3, FLOW NEOGENOMIC, CMP, RETIC, CYTOGENE, SCAN CBC, FE and TIBC, T4F, [id number], LDH ####[place] [id number] GFR/1.73 sq M.predicted MDRD (S/P/Bld) [Vol rate/Area] 50.358 mL/min/{1.73_m2} Normal [facility] Comment on above: Performed By: #### P LT AB S, SPE, RA, HBSAG, HIV SCREEN, KAPPA, HBSAB, HCV RX PCR, CAMILA, SADIE, HBCAB, SKIP SERUM, CU ####[facility] ,#### FISH NOT BLAD, MARÍA, TSH3, FLOW NEOGENOMIC, CMP, RETIC, CYTOGENE, SCAN CBC, FE and TIBC, T4F, [id number], LDH ####[facility] Copperon 02-26-2024 Copper 109 ug/dL Normal 69-132 [facility] Comment on above: Result Comment: This test was developed and its performance characteristics determined by [employer]. It has not been cleared or approved by the Food and Drug Administration. Detection Limit = 5 Performed at: [address] [id number] Conference Producer: Mary Jane Maya MD, Phone: [phone] Performed By: #### O BS-GUAIAC #### [facility] [address] Creatinine [Mass/volume] in Serum or PlasmaOrdered By: Bertha Cuevas on 02-26-2024 Creatinine [Mass/Vol] 1.44 mg/dL High 0.70-1.30 [facility] Comment on above: Performed By: #### P LT AB S, SPE, RA, HBSAG, HIV SCREEN, KAPPA, HBSAB, HCV RX PCR, CAMILA, SADIE, HBCAB, SKIP SERUM, CU ####[facility] ,#### FISH NOT BLAD, MARÍA, TSH3, FLOW NEOGENOMIC, CMP, RETIC, CYTOGENE, SCAN CBC, FE and TIBC, T4F, [id number], LDH ####[facility] [id number] [place] [id number] [facility] Cytogenetics [employer] Cytogenetics Neogenomic Normal [facility] Comment on above: Result Comment: See report. Scanned copy available in EMR. Performed By: #### P TT, BMP, HS TROP, PT, CK, BNP, DIFF CBC #### [facility] [address] Direct [place] 02-26-2024 Polyspecific AHG Negative Normal Negative [facility] Comment on above: Result Comment: PERF ORMED BY: [address] [place] [address] PATHOLOGIST SINKER WINDER OTTO HARLEY M.D. Erythrocyte distribution wid th [Ratio] by Automated countOrdered By: artem Pearce on 02-26-2024 Erythrocyte distribution width (RBC) [Ratio] 20.0 % High 12.0-14.8 [facility] Comment on above: Performed By: #### P LT AB S, SPE, RA, HBSAG, HIV SCREEN, KAPPA, HBSAB, HCV RX PCR, CAMILA, SADIE, HBCAB, SKIP SERUM, CU ####[facility] ,#### FISH NOT BLAD, MARÍA, TSH3, FLOW NEOGENOMIC, CMP, RETIC, CYTOGENE, SCAN CBC, FE and TIBC, T4F, [id number], LDH ####[facility] [id number] Erythrocytes [#/volume] in B lood by Automated countOrdered By: Bertha Cuevas on 02-26-2024 RBC (Bld) [#/Vol] 2.60 10*6/uL Low 3.90-5.60 [facility] Comment on above: Performed By: #### P LT AB S, SPE, RA, HBSAG, HIV SCREEN, KAPPA, HBSAB, HCV RX PCR, CAMILA, SADIE, HBCAB, SKIP SERUM, CU ####[facility] ,#### FISH NOT BLAD, MARÍA, TSH3, FLOW NEOGENOMIC, CMP, RETIC, CYTOGENE, SCAN CBC, FE and TIBC, T4F, [id number], LDH ####[facility] Ferritin [Mass/volume] in Se rum or PlasmaOrdered By: Bertha Cuevas on 02-26-2024 Ferritin [Mass/Vol] 720.3 ng/mL High 23.9-336.2 [facility] Comment on above: Performed By: #### P LT AB S, SPE, RA, HBSAG, HIV SCREEN, KAPPA, HBSAB, HCV RX PCR, CAMILA, SADIE, HBCAB, SKIP SERUM, CU ####[facility] ,#### FISH NOT BLAD, MARÍA, TSH3, FLOW NEOGENOMIC, CMP, RETIC, CYTOGENE, SCAN CBC, FE and TIBC, T4F, [id number], LDH ####[facility] [id number] Fish Not Bladder Neogenomico n 02-26-2024 Fish Not Bladder Neogenomic Normal [facility] Comment on above: Result Comment: See report. Scanned copy available in EMR. PERFORMED BY: [facility] [address] [place] [address] PATHOLOGIST SINKER WINDER OTTO HARLEY M.D. Performed By: #### P TT, BMP, HS TROP, PT, CK, BNP, DIFF CBC #### [facility] [address] Flowcytometry [employer] 0 02-26-2024 Flowcytometry Neogenomic Normal [facility] Comment on above: Result Comment: See report. Scanned copy available in EMR.See report. Scanned copy available in EMR. --- 03/03/24 0759 --- Flow [employer] previously reported as: See report. Scanned copy available in EMR. Performed By: #### P TT, BMP, HS TROP, PT, CK, BNP, DIFF CBC #### [facility] [address] Folate [Mass/volume] in Seru m or PlasmaOrdered By: Bertha Cuevas on 02-26-2024 Folate [Mass/Vol] ng/mL >5.9 [facility] Comment on above: Folate reference ran ge: >5.9 ng/mlThe WHO technical consultation on folate and vitamin [id number] has determined that folate concentrations lessthan 4 ng/ml are considered deficient. Free K+L LT Chains, Qn, Son 02-26-2024 Free [place] Light Chains, S 1354.4 mg/L High 3.3-19.4 [facility] Comment on above: Performed By: #### P TT, BMP, HS TROP, PT, CK, BNP, DIFF CBC #### [address] Free [place] Light Chains, S 10.1 mg/L Normal 5.7-26.3 [facility] Comment on above: Performed By: #### P TT, BMP, HS TROP, PT, CK, BNP, DIFF CBC #### [place] [address] [place]/Lambda Ratio, S 134.10 High 0.26-1.65 [facility] Comment on above: Result Comment: Perf ormed at: CB - [facility] [address] [id number] Conference Producer: J Carlos Blackman PhD, Phone: [phone] PERFORMED BY: [place] [address] PATHOLOGIST SINKER WINDER OTTO HARLEY M.D. Performed By: #### P TT, BMP, HS TROP, PT, CK, BNP, DIFF CBC #### [address] Glucose [Mass/volume] in Ser um or PlasmaOrdered By: Bertha Ceuvas on 02-26-2024 Glucose [Mass/Vol] 104 mg/dL High 70-100 [facility] Comment on above: ADA recommended refe rence rangeRandom Glucose Reference Range is dependent on time and content of last meal. Glucose of more than 200 mg/dL in a nonstressed, ambulatory subject supports the diagnosis of Diabetes Mellitus. Result Comment: [place] om Glucose Reference Range is dependent on [...] CYTOGENE, SCAN CBC, FE and TIBC, T4F, [id number], LDH ####[facility] [id number] HIV 1/O/2 Antigen/Antibodyon 02-26-2024 HIV Screen 4th Generation Non-Reactive Normal Non Reactive [facility] Comment on above: Result Comment: HIV Negative HIV-1/HIV-2 antibodies and HIV-1 p24 antigen were NOT detected. There is no laboratory evidence of HIV infection. Performed at: [facility] [employer] [facility] [id number] Conference Producer: J Carlos Blackman PhD, Phone: [phone] Performed By: #### P TT, BMP, HS TROP, PT, CK, BNP, DIFF CBC #### [facility] [address] HIV 1 and HIV-2 antibody ass ay with HIV-1 p24 antigen detectionOrdered By: Bertha Cuevas on 02-26-2024 HIV 1+2 Ab+HIV1 p24 Ag IA Ql Non-Reactive Non Reactive [facility] Comment on above: HIV NegativeHIV-1/HI V-2 antibodies and HIV-1 p24 antigen were NOTdetected. There is no laboratory evidence of HIV infection.Performed at: [facility] [id number] Director: J Carlos Blackman PhD, Phone: [phone] Hematocrit [Volume Fraction] of Blood by Automated countOrdered By: Bertha Pearce on 02-26-2024 Hematocrit (Bld) [Volume fraction] 27.0 % Low 38.8-50.0 [facility] Comment on above: Performed By: #### P LT AB S, SPE, RA, HBSAG, HIV SCREEN, KAPPA, HBSAB, HCV RX PCR, CAMILA, SADIE, HBCAB, SKIP SERUM, CU ####[facility] ,#### FISH NOT BLAD, MARÍA, TSH3, FLOW NEOGENOMIC, CMP, RETIC, CYTOGENE, SCAN CBC, FE and TIBC, T4F, [id number], LDH ####[place] [address] [address] Hemoglobin [Mass/volume] in BloodOrdered By: Bertha Cuevas on 02-26-2024 Hemoglobin (Bld) [Mass/Vol] 9.3 g/dL Low 13.0-17.0 [facility] Comment on above: Performed By: #### P LT AB S, SPE, RA, HBSAG, HIV SCREEN, KAPPA, HBSAB, HCV RX PCR, CAMILA, SADIE, HBCAB, SKIP SERUM, CU ####[facility] ,#### FISH NOT BLAD, MARÍA, TSH3, FLOW NEOGENOMIC, CMP, RETIC, CYTOGENE, SCAN CBC, FE and TIBC, T4F, [id number], LDH ####[place] [address] Hep C Ab wRfx to Qnt PCRon 0 02-26-2024 Hepatitis C Virus Antibody Non-Reactive Normal Non Reactive [facility] Comment on above: Performed By: #### O BS-GUAIAC #### [address] Interpretation Hepatitis C Normal . [facility] Comment on above: Result Comment: Not infected with HCV unless early or acute infection is suspected (which may be delayed in an immunocompromised individual), or other evidence exists to indicate HCV infection. Performed By: #### O BS-GUAIAC #### [address] Hepatitis B Core Antibodyon 02-26-2024 Hepatitis B Core Antibody Positive Critically abnormal Negative [facility] Comment on above: Result Comment: Perf ormed at: CB - [facility] [address] [id number] Conference Producer: J Carlos Blackman PhD, Phone: [phone] Performed By: #### O BS-GUAIAC #### [address] [place] [address] [place] Hepatitis B Surface Antibody on 02-26-2024 Hepatitis B Surface Antibody Reactive Normal . [facility] Comment on above: Result Comment: Non Reactive: Inconsistent with immunity, less than 10 mIU/mL Reactive: Consistent with immunity, greater than 9.9 mIU/mL Performed By: #### O BS-GUAIAC #### [facility] [address] Hepatitis B Surface Antigeno n 02-26-2024 HBsAg Screen Negative Normal Negative [facility] Comment on above: Result Comment: PERF ORMED BY: [facility] [address] [place] [address] PATHOLOGIST SINKER WINDER OTTO HARLEY M.D. Performed By: #### O BS-GUAIAC #### [facility] [address] Hepatitis B virus surface Ab [Presence] in SerumOrdered By: Bertha Cuevas on 02-26-2024 HBV surface Ab Ql (S) Reactive . [facility] Comment on above: Non Reactive: Incons istent with immunity, less than 10 mIU/mL Reactive: Consistent with immunity, greater than 9.9 mIU/mL Hepatitis B virus surface Ag [Presence] in Serum or Plasma by ImmunoassayOrdered By: Bertha Cuevas on 02-26-2024 HBV surface Ag IA Ql Negative Negative [facility] Hepatitis C virus IgG Ab [Pr esence] in Serum or Plasma by ImmunoassayOrdered By: Bertha Cuevas on 02-26-2024 HCV IgG IA Ql Non-Reactive Non Reactive [facility] IgA [Mass/volume] in Serum o r PlasmaOrdered By: Bertha Cuevas on 02-26-2024 IgA [Mass/Vol] 3828 mg/dL High 61-437 [facility] Comment on above: Results confirmed on dilution. IgG [Mass/volume] in Serum o r PlasmaOrdered By: Bertha Cuevas on 02-26-2024 IgG [Mass/Vol] 667 mg/dL 603-1613 [facility] IgM [Mass/volume] in Serum o r PlasmaOrdered By: Bertha Cuevas on 02-26-2024 IgM [Mass/Vol] 16 mg/dL 15-143 [facility] Comment on above: Result confirmed on concentration.Performed at: [place] [id number] [place], [place] [id number] Director: J Carlos Blackman PhD, Phone: [phone] Immunofixation,Serumon 02-25 Immunofixation, Serum Abnormal . [facility] Comment on above: Result Comment: Immu nofixation shows IgA monoclonal protein with kappa light chain specificity. Performed By: #### O BS-GUAIAC #### [facility] [address] [place] [address] [place] Immunoglobulin A, Serum 3828 mg/dL High 61-437 [facility] Comment on above: Result Comment: Resu lts confirmed on dilution. Performed By: #### O BS-GUAIAC #### [facility] [address] [place] [address] [place] Immunoglobulin G 667 mg/dL Normal 603-1613 [facility] Comment on above: Performed By: #### O BS-GUAIAC #### [facility] [address] [place] [address] [place] Immunoglobulin M, Serum 16 mg/dL Normal 15-143 [facility] Comment on above: Result Comment: Resu lt confirmed on concentration. Performed at: [facility] [address] [place], [place] [id number] Conference Producer: J Carlos Blackman PhD, Phone: [phone] Performed By: #### O BS-GUAIAC #### [facility] [address] [place] [id number] [facility] Immunoglobulin light chains. kappa.free [Mass/volume] in SerumOrdered By: Bertha Cuevas on 02-26-2024 Immunoglobulin light chains.kappa.free (S) [Mass/Vol] 1354.4 mg/L High 3.3-19.4 [facility] Immunoglobulin light chains. kappa.free/Immunoglobulin light chains.lambda.free [MassOrdered By: Bertha Cuevas on 02-26-2024 Immunoglobulin light chains.kappa.free/Immu noglobulin light chains.lambda.free (S) [Mass ratio] 134.10 High 0.26-1.65 [facility] Comment on above: Performed at: [address] [id number] Director: J Cralos Blackman PhD, Phone: [phone] Immunoglobulin light chains. lambda.free [Mass/volume] in Serum or PlasmaOrdered By: Bertha Cuevas on 02-26-2024 Immunoglobulin light chains.lambda.free [Mass/Vol] 10.1 mg/L 5.7-26.3 [facility] Iron [Mass/volume] in Serum or PlasmaOrdered By: Bertha Cuevas on 02-26-2024 Iron [Mass/Vol] 139 ug/dL Normal 50-212 [facility] Comment on above: Performed By: #### P LT AB S, SPE, RA, HBSAG, HIV SCREEN, KAPPA, HBSAB, HCV RX PCR, CAMILA, SADIE, HBCAB, SKIP SERUM, CU ####[facility] ,#### FISH NOT BLAD, MARÍA, TSH3, FLOW NEOGENOMIC, CMP, RETIC, CYTOGENE, SCAN CBC, FE and TIBC, T4F, [id number], LDH ####[place] [address] [place] [id number] [facility] Iron and TIBC Profileon 06-0 % Iron Saturation 64.1 % High 20-50 [facility] Comment on above: Performed By: #### P LT AB S, SPE, RA, HBSAG, HIV SCREEN, KAPPA, HBSAB, HCV RX PCR, CAMILA, SADIE, HBCAB, SKIP SERUM, CU ####[facility] ,#### FISH NOT BLAD, MARÍA, TSH3, FLOW NEOGENOMIC, CMP, RETIC, CYTOGENE, SCAN CBC, FE and TIBC, T4F, [id number], LDH ####[place] [address] [place] [id number] [facility] Total Iron Binding Capacity 217 ug/dL Low 255-450 [facility] Comment on above: Performed By: #### P LT AB S, SPE, RA, HBSAG, HIV SCREEN, KAPPA, HBSAB, HCV RX PCR, CAMILA, ASDIE, HBCAB, SKIP SERUM, CU ####[facility] ,#### FISH NOT BLAD, MARÍA, TSH3, FLOW NEOGENOMIC, CMP, RETIC, CYTOGENE, SCAN CBC, FE and TIBC, T4F, [id number], LDH ####[facility] Iron binding capacity [Mass/ volume] in Serum or PlasmaOrdered By: Bertha Cuevas on 02-26-2024 Iron binding capacity [Mass/Vol] 217 ug/dL Low 255-450 [facility] Iron saturation [Mass Fracti on] in Serum or PlasmaOrdered By: Bertha Cuevas on 02-26-2024 Iron saturation [Mass fraction] 64.1 % High 20-50 [facility] LDH Lactate Dehydrogenaseon 02-26-2024 LDH Lactate Dehydrogenase 118 U/L Low 140-271 [facility] Comment on above: Performed By: #### P LT AB S, SPE, RA, HBSAG, HIV SCREEN, KAPPA, HBSAB, HCV RX PCR, CAMILA, SADIE, HBCAB, SKIP SERUM, CU ####[facility] ,#### FISH NOT BLAD, MARAÍ, TSH3, FLOW NEOGENOMIC, CMP, RETIC, CYTOGENE, SCAN CBC, FE and TIBC, T4F, [id number], LDH ####[facility] Laboratory - Chemistry and C hemistry - challengeOrdered By: Bertha Cuevas on 02-26-2024 Protein [Mass/Vol] 3.7 g/dL High Not Observed [facility] Lactate dehydrogenase [Enzym atic activity/volume] in Serum or Plasma by Lactate to pyOrdered By: Bertha Cuevas on 02-26-2024 LDH Lactate to pyruvate reaction [Catalytic activity/Vol] 118 U/L Low 140-271 [facility] Leukocytes [#/volume] correc myrtle for nucleated erythrocytes in Blood by Automated counOrdered By: Endyartem Cuevas on 02-26-2024 WBC corrected for nucl RBC Auto (Bld) [#/Vol] 2.5 10*3/uL Low 4.1-10.5 [facility] Leukocytes [#/volume] in Blo od by Automated countOrdered By: artem Cuevas on 02-26-2024 WBC (Bld) [#/Vol] 2.5 10*3/uL Low 4.1-10.5 [facility] Comment on above: Performed By: #### P LT AB S, SPE, RA, HBSAG, HIV SCREEN, KAPPA, HBSAB, HCV RX PCR, CAMILA, SADIE, HBCAB, SKIP SERUM, CU ####[facility] ,#### FISH NOT BLAD, MARÍA, TSH3, FLOW NEOGENOMIC, CMP, RETIC, CYTOGENE, SCAN CBC, FE and TIBC, T4F, [id number], LDH ####[facility] [id number] Lymphocytes [#/volume] in Bl ood by Automated countOrdered By: artem Cuevas on 02-26-2024 Lymphocytes (Bld) [#/Vol] 1.1 10*3/uL Normal 1.00-4.8 [facility] Comment on above: Performed By: #### P LT AB S, SPE, RA, HBSAG, HIV SCREEN, KAPPA, HBSAB, HCV RX PCR, CAMILA, SADIE, HBCAB, SKIP SERUM, CU ####[facility] ,#### FISH NOT BLAD, MARÍA, TSH3, FLOW NEOGENOMIC, CMP, RETIC, CYTOGENE, SCAN CBC, FE and TIBC, T4F, [id number], LDH ####[facility]1111 [place] [id number] [facility] Lymphocytes/100 leukocytes i n Blood by Automated countOrdered By: artem Cuevas on 02-26-2024 Lymphocytes/100 WBC (Bld) 43.0 % Normal . [facility] Comment on above: Performed By: #### P LT AB S, SPE, RA, HBSAG, HIV SCREEN, KAPPA, HBSAB, HCV RX PCR, CAMILA, SADIE, HBCAB, SKIP SERUM, CU ####[facility] ,#### FISH NOT BLAD, MARÍA, TSH3, FLOW NEOGENOMIC, CMP, RETIC, CYTOGENE, SCAN CBC, FE and TIBC, T4F, [id number], LDH ####[facility] MCH [Entitic mass] by Automa myrtle countOrdered By: Bertha Cuevas on 02-26-2024 MCH (RBC) [Entitic mass] 35.7 pg High 27.5-35.2 [facility] Comment on above: Performed By: #### P LT AB S, SPE, RA, HBSAG, HIV SCREEN, KAPPA, HBSAB, HCV RX PCR, CAMILA, SADIE, HBCAB, SKIP SERUM, CU ####[facility] ,#### FISH NOT BLAD, MARÍA, TSH3, FLOW NEOGENOMIC, CMP, RETIC, CYTOGENE, SCAN CBC, FE and TIBC, T4F, [id number], LDH ####[facility] MCHC Auto (RBC) [Mass/Vol]Or dered By: Bertha Cuevas on 02-26-2024 MCHC (RBC) [Mass/Vol] 34.4 g/dL 32.5-35.6 [facility] MCV [Entitic volume] by Auto mated countOrdered By: Bertha Cuevas on 02-26-2024 MCV (RBC) [Entitic vol] 103.8 fL High 83.5-101 [facility] Comment on above: Performed By: #### P LT AB S, SPE, RA, HBSAG, HIV SCREEN, KAPPA, HBSAB, HCV RX PCR, CAMILA, SADIE, HBCAB, SKIP SERUM, CU ####[facility] ,#### FISH NOT BLAD, MARÍA, TSH3, FLOW NEOGENOMIC, CMP, RETIC, CYTOGENE, SCAN CBC, FE and TIBC, T4F, [id number], LDH ####[facility] [id number] Macrocytes LM Ql (Bld)Ordere d By: Bertha Cuevas on 02-26-2024 Macrocytes Ql (Bld) Slight [facility] Neutrophils [#/volume] in Bl ood by Automated countOrdered By: Bertha Cuevas on 02-26-2024 Neutrophils (Bld) [#/Vol] 1.1 10*3/uL Low 1.8-7.7 [facility] Comment on above: Performed By: #### P LT AB S, SPE, RA, HBSAG, HIV SCREEN, KAPPA, HBSAB, HCV RX PCR, CAMILA, SADIE, HBCAB, SKIP SERUM, CU ####[facility] ,#### FISH NOT BLAD, AMRÍA, TSH3, FLOW NEOGENOMIC, CMP, RETIC, CYTOGENE, SCAN CBC, FE and TIBC, T4F, [id number], LDH ####[facility] [id number] No Panel InformationOrdered By: Bertha Cuevas on 02-26-2024 Anti-Nuclear Antibody Comment 2 See comment . [facility] Comment on above: Pattern Potential Di sease Association Homogeneous Systemic Lupus Erythematosus, Drug Induced Systemic Lupus Erythematosus, Chronic Autoimmune hepatitis, Juvenile Idiopathic Arthritis Speckled Sjogren Syndrome, Systemic Lupus Erythematosus, Subacute Cutaneous Lupus, Lupus, Congenital Heart Block, Mixed Connective Tissue Disease, Scleroderma-diffuse, Scleroderma-Autoimmune Myositis Overlap Syndrome, Systemic Lupus Geoourajadweh-Zuspzlmtizd-Cocmjoppbd Myositis Overlap Syndrome, Systemic Autoimmune Rheumatic Disease, [...] Cytopenias, Linear Scleroderma, Antiphospholipid Syndrome Performed at: [facility] [address] [place], [place] [id number] Director: J Carlos Blackman PhD, Phone: [phone] Anti-Platelet Glycoprotein IV Negative Negative [facility] Comment on above: Performed at: [facility] [address] [id number] Director: Mary Jane Maya MD, Phone: [phone] Comment (FISH) See comment [facility] Comment on above: See report. Scanned copy available in EMR. Estimated GFR (CKD-EPI) 50.358 mL/Min [facility] Hepatitis B Core Total Antibody Positive Abnormal Negative [facility] Comment on above: Performed at: [facility] [address] [id number] Director: J Carlos Blackman PhD, Phone: [phone] Hepatitis C Interpretation See comment . [facility] Comment on above: Not infected with HC V unless early or acute infection issuspected (which may be delayed in an immunocompromisedindividual), or other evidence exists to indicate HCVinfection. Pharmacy Creatinine Clearance (Chem 43.64 [facility] Protein Electrophoresis Note See comment . [facility] Comment on above: Protein electrophore sis scan will follow via computer,mail, or ledger poster delivery.Performed at: [facility] [address] [id number] Director: J Carlos Blackman PhD, Phone: [phone] Serum Immunofixation See comment Abnormal . [facility] Comment on above: Immunofixation shows IgA monoclonal protein with kappalight chain specificity. Nucleated erythrocytes [Pres ence] in Blood by Automated countOrdered By: Bertha Cuevas on 02-26-2024 Nucleated RBC Auto Ql (Bld) 0.2 /100{WBC} 0-0.5 [facility] Platelet Antibody, Serumon 0 02-26-2024 GLycoprotein IV Antibody Negative Normal Negative [facility] Comment on above: Result Comment: Perf ormed at: BN - [facility] [address] [id number] Conference Producer: Mary Jane Maya MD, Phone: [phone] Performed By: #### P TT, BMP, HS TROP, PT, CK, BNP, DIFF CBC #### [facility] [address] Hla Class 1 Antibody Negative Normal Negative [facility] Comment on above: Performed By: #### P TT, BMP, HS TROP, PT, CK, BNP, DIFF CBC #### [facility] [address] Ia/IIa Antibodies Negative Normal Negative [facility] Comment on above: Performed By: #### P TT, BMP, HS TROP, PT, CK, BNP, DIFF CBC #### [facility] [address] Ib/IX Antibody Negative Normal Negative [facility] Comment on above: Performed By: #### P TT, BMP, HS TROP, PT, CK, BNP, DIFF CBC #### [facility] [address] IIb/IIIa Antibody Negative Normal Negative [facility] Comment on above: Performed By: #### P TT, BMP, HS TROP, PT, CK, BNP, DIFF CBC #### [facility] [address] Platelet adequacy [Presence] in Blood by Light microscopyOrdered By: Bertha Pearce on 02-26-2024 Platelets LM Ql (Bld) Decreased Normal [facility] Platelet mean volume [Entiti c volume] in Blood by Automated countOrdered By: Bertha Cuevas on 02-26-2024 Platelet mean volume (Bld) [Entitic vol] 7.0 fL Normal 6.6-10.1 [facility] Comment on above: Performed By: #### P LT AB S, SPE, RA, HBSAG, HIV SCREEN, KAPPA, HBSAB, HCV RX PCR, CAMILA, SADIE, HBCAB, SKIP SERUM, CU ####[facility] ,#### FISH NOT BLAD, MARÍA, TSH3, FLOW NEOGENOMIC, CMP, RETIC, CYTOGENE, SCAN CBC, FE and TIBC, T4F, [id number], LDH ####[facility] Platelet morphology finding [Identifier] in BloodOrdered By: Bertha Cuevas on 02-26-2024 Platelet morphology finding Nom (Bld) Normal Normal [facility] Platelets [#/volume] in Bloo d by Automated countOrdered By: Bertha Cuevas on 02-26-2024 Platelets (Bld) [#/Vol] 83 10*3/uL Low 150-450 [facility] Comment on above: Performed By: #### P LT AB S, SPE, RA, HBSAG, HIV SCREEN, KAPPA, HBSAB, HCV RX PCR, CAMILA, SADIE, HBCAB, SKIP SERUM, CU ####[facility] ,#### FISH NOT BLAD, MARÍA, TSH3, FLOW NEOGENOMIC, CMP, RETIC, CYTOGENE, SCAN CBC, FE and TIBC, T4F, [id number], LDH ####[facility] [id number] Potassium [Moles/volume] in Serum or PlasmaOrdered By: Bertha Cuevas on 02-26-2024 Potassium [Moles/Vol] 4.2 mmol/L Normal 3.5-5.1 [facility] Comment on above: Performed By: #### P LT AB S, SPE, RA, HBSAG, HIV SCREEN, KAPPA, HBSAB, HCV RX PCR, CAMILA, SADIE, HBCAB, SKIP SERUM, CU ####[facility] ,#### FISH NOT BLAD, MARÍA, TSH3, FLOW NEOGENOMIC, CMP, RETIC, CYTOGENE, SCAN CBC, FE and TIBC, T4F, [id number], LDH ####[facility] Protein Electrophoresis, Ser umon 02-26-2024 Yolwj-4-Ziicbzrg 0.3 g/dL Normal 0.0-0.4 [facility] Comment on above: Performed By: #### P TT, BMP, HS TROP, PT, CK, BNP, DIFF CBC #### [facility] [address] Ggfam-2-Xcxvvgob 0.9 g/dL Normal 0.4-1.0 [facility] Comment on above: Performed By: #### P TT, BMP, HS TROP, PT, CK, BNP, DIFF CBC #### [facility] [address] Beta Globulin 4.4 g/dL High 0.7-1.3 [facility] Comment on above: Performed By: #### P TT, BMP, HS TROP, PT, CK, BNP, DIFF CBC #### [facility] [address] Gamma Globulin 0.6 g/dL Normal 0.4-1.8 [facility] Comment on above: Performed By: #### P TT, BMP, HS TROP, PT, CK, BNP, DIFF CBC #### [facility] [address] M-Kody 3.7 g/dL High Not Observed [facility] Comment on above: Performed By: #### P TT, BMP, HS TROP, PT, CK, BNP, DIFF CBC #### [facility] [address] SPE-Note Normal . [facility] Comment on above: Result Comment: Prot ein electrophoresis scan will follow via computer, mail, or ledger poster delivery. Performed at: [facility] [address] [id number] Conference Producer: J Carlos Blackman PhD, Phone: [phone] Performed By: #### P TT, BMP, HS TROP, PT, CK, BNP, DIFF CBC #### [facility] [address] Protein [Mass/volume] in Ser um or PlasmaOrdered By: Bertha Cuevas on 02-26-2024 Protein [Mass/Vol] 9.9 g/dL High 6.4-8.9 [facility] Comment on above: Performed By: #### P LT AB S, SPE, RA, HBSAG, HIV SCREEN, KAPPA, HBSAB, HCV RX PCR, CAMILA, SADIE, HBCAB, SKIP SERUM, CU ####[facility] ,#### FISH NOT BLAD, MARÍA, TSH3, FLOW NEOGENOMIC, CMP, RETIC, CYTOGENE, SCAN CBC, FE and TIBC, T4F, [id number], LDH ####[facility] Protein [Mass/Vol] 9.6 g/dL High 6.0-8.5 [facility] Comment on above: Performed By: #### P TT, BMP, HS TROP, PT, CK, BNP, DIFF CBC #### [facility] [address] RBC morphologyOrdered By: Endy Cuevas on 02-26-2024 RBC morphology finding Nom (Bld) Normal Normal Normal [facility] Comment on above: Performed By: #### P LT AB S, SPE, RA, HBSAG, HIV SCREEN, KAPPA, HBSAB, HCV RX PCR, CAMILA, SADIE, HBCAB, SKIP SERUM, CU ####[facility] ,#### FISH NOT BLAD, MARÍA, TSH3, FLOW NEOGENOMIC, CMP, RETIC, CYTOGENE, SCAN CBC, FE and TIBC, T4F, [id number], LDH ####[facility] Reticulocyte Counton 024 Reticulocyte Number 0.002 10*6/uL Low 0.024-0 .08 4 [facility] Comment on above: Result Comment: PERF ORMED BY: [place] [address] PATHOLOGIST SINKER WINDER OTTO HARLEY M.D. Performed By: #### P LT AB S, SPE, RA, HBSAG, HIV SCREEN, KAPPA, HBSAB, HCV RX PCR, CAMILA, SADIE, HBCAB, SKIP SERUM, CU ####[facility] ,#### FISH NOT BLAD, MARÍA, TSH3, FLOW NEOGENOMIC, CMP, RETIC, CYTOGENE, SCAN CBC, FE and TIBC, T4F, [id number], LDH ####[facility] [id number] Reticulocyte Percent 0.1 % Low 0.5-1.5 [facility] Comment on above: Performed By: #### P LT AB S, SPE, RA, HBSAG, HIV SCREEN, KAPPA, HBSAB, HCV RX PCR, CAMILA, SADIE, HBCAB, SKIP SERUM, CU ####[facility] ,#### FISH NOT BLAD, MARÍA, TSH3, FLOW NEOGENOMIC, CMP, RETIC, CYTOGENE, SCAN CBC, FE and TIBC, T4F, [id number], LDH ####[facility] Reticulocytes/100 RBC Auto ( Bld)Ordered By: Bertha Cuevas on 02-26-2024 Reticulocytes/100 RBC (Bld) 0.1 % Low 0.5-1.5 [facility] Rheumatoid Factoron 02-26-20 24 Rheumatoid Factor 12.8 Normal <14.0 [facility] Comment on above: Performed By: #### O BS-GUAIAC #### [facility] [address] Scan and CBCon 02-26-2024 Macrocytosis Slight Normal [facility] Comment on above: Performed By: #### P LT AB S, SPE, RA, HBSAG, HIV SCREEN, KAPPA, HBSAB, HCV RX PCR, CAMILA, SADIE, HBCAB, SKIP SERUM, CU ####[facility] ,#### FISH NOT BLAD, MARÍA, TSH3, FLOW NEOGENOMIC, CMP, RETIC, CYTOGENE, SCAN CBC, FE and TIBC, T4F, [id number], LDH ####[facility] Mean Corpuscular HGB Conc 34.4 g/dL Normal 32.5-35.6 [facility] Comment on above: Performed By: #### P LT AB S, SPE, RA, HBSAG, HIV SCREEN, KAPPA, HBSAB, HCV RX PCR, CAMILA, SADIE, HBCAB, SKIP SERUM, CU ####[facility] ,#### FISH NOT BLAD, MARÍA, TSH3, FLOW NEOGENOMIC, CMP, RETIC, CYTOGENE, SCAN CBC, FE and TIBC, T4F, [id number], LDH ####[facility] NRBC% 0.2 /100{WBC} Normal 0-0.5 [facility] Comment on above: Performed By: #### P LT AB S, SPE, RA, HBSAG, HIV SCREEN, KAPPA, HBSAB, HCV RX PCR, CAMILA, SADIE, HBCAB, SKIP SERUM, CU ####[facility] ,#### FISH NOT BLAD, MARÍA, TSH3, FLOW NEOGENOMIC, CMP, RETIC, CYTOGENE, SCAN CBC, FE and TIBC, T4F, [id number], LDH ####[place] [address] [address] Platelet Estimate Decreased Normal Normal [facility] Comment on above: Performed By: #### P LT AB S, SPE, RA, HBSAG, HIV SCREEN, KAPPA, HBSAB, HCV RX PCR, CAMILA, SADIE, HBCAB, SKIP SERUM, CU ####[facility] ,#### FISH NOT BLAD, MARÍA, TSH3, FLOW NEOGENOMIC, CMP, RETIC, CYTOGENE, SCAN CBC, FE and TIBC, T4F, [id number], LDH ####[address] Platelet Morphology Normal Normal Normal [facility] Comment on above: Performed By: #### P LT AB S, SPE, RA, HBSAG, HIV SCREEN, KAPPA, HBSAB, HCV RX PCR, CAMILA, SADIE, HBCAB, SKIP SERUM, CU ####[facility] ,#### FISH NOT BLAD, MARÍA, TSH3, FLOW NEOGENOMIC, CMP, RETIC, CYTOGENE, SCAN CBC, FE and TIBC, T4F, [id number], LDH ####[address] Serum HLA antibody detection by immunoassayOrdered By: Bertha Cuevas on 02-26-2024 HLA Ab IA Ql (S) Negative Negative [facility] Serum angiotensin converting enzyme (SADIE) measurementOrdered By: Bertha Cuevas on 02-26-2024 Angiotensin converting enzyme [Catalytic activity/Vol] 25 U/L Normal 14-82 [facility] Comment on above: Performed at: [address] [id number] Director: J Carlos Blackman PhD, Phone: [phone] Result Comment: Perf ormed at: CB - [facility] [address] [id number] Conference Producer: J Carlos Blackman PhD, Phone: [phone] Performed By: #### O BS-GUAIAC #### [address] Serum globulin measurement ( mass/volume)Ordered By: Bertha Cuevas on 02-26-2024 Globulin (S) [Mass/Vol] 6.2 g/dL High 2.2-3.9 [facility] Comment on above: Performed By: #### P TT, BMP, HS TROP, PT, CK, BNP, DIFF CBC #### [facility] [address] [place] [address] Serum globulin measurement b y calculation (mass/volume)Ordered By: Bertha Pearce on 02-26-2024 Globulin (S) [Mass/Vol] 6.4 g/dL Normal [facility] Comment on above: Performed By: #### P LT AB S, SPE, RA, HBSAG, HIV SCREEN, KAPPA, HBSAB, HCV RX PCR, CAMILA, SADIE, HBCAB, SKIP SERUM, CU ####[facility] ,#### FISH NOT BLAD, MARÍA, TSH3, FLOW NEOGENOMIC, CMP, RETIC, CYTOGENE, SCAN CBC, FE and TIBC, T4F, [id number], LDH ####[facility] Fla[address] Serum homogeneous pattern an tinuclear antibody (CAMILA) titerOrdered By: Bertha Pearce on 02-26-2024 Homogenous nuclear Ab pattern (S) [Titer] 1:320 High . [facility] Comment on above: ICAP nomenclature: A C-1 Serum nuclear antibody titer Ordered By: Bertha Cuevas on 02-26-2024 Nuclear Ab (S) [Titer] Positive Abnormal . [facility] Comment on above: Negative <1:80 Borde rline 1:80 Positive >1:80 Serum or plasma albumin/glob ulin mass ratioOrdered By: Bertha Cuevas on 02-26-2024 Albumin/Globulin [Mass ratio] 0.5 {ratio} Low 0.7-1.7 [facility] Comment on above: Performed By: #### P LT AB S, SPE, RA, HBSAG, HIV SCREEN, KAPPA, HBSAB, HCV RX PCR, CAMILA, SADIE, HBCAB, SKIP SERUM, CU ####[facility] ,#### FISH NOT BLAD, MARÍA, TSH3, FLOW NEOGENOMIC, CMP, RETIC, CYTOGENE, SCAN CBC, FE and TIBC, T4F, [id number], LDH ####[facility] Performed By: #### P TT, BMP, HS TROP, PT, CK, BNP, DIFF CBC #### [facility] [address] Serum or plasma alpha 1 glob ulin measurement by electrophoresis (mass/volume)Ordered By: Bertha Cuevas on 02-26-2024 Alpha 1 globulin Elph [Mass/Vol] 0.3 g/dL 0.0-0.4 [facility] Serum or plasma alpha 2 glob ulin measurement by electrophoresis (mass/volume)Ordered By: Bertha Cuevas on 02-26-2024 Alpha 2 globulin Elph [Mass/Vol] 0.9 g/dL 0.4-1.0 [facility] Serum or plasma anion gap de terminationOrdered By: Bertha Cuevas on 02-26-2024 Anion gap [Moles/Vol] 16.0 mmol/L High 6.0-15.0 [facility] Comment on above: Performed By: #### P LT AB S, SPE, RA, HBSAG, HIV SCREEN, KAPPA, HBSAB, HCV RX PCR, CAMILA, SADIE, HBCAB, SKIP SERUM, CU ####[facility] ,#### FISH NOT BLAD, MARÍA, TSH3, FLOW NEOGENOMIC, CMP, RETIC, CYTOGENE, SCAN CBC, FE and TIBC, T4F, [id number], LDH ####[facility] [id number] Serum or plasma beta globuli n measurement by electrophoresis (mass/volume)Ordered By: Bertha Cuevas on 02-26-2024 Beta globulin Elph [Mass/Vol] 4.4 g/dL High 0.7-1.3 [facility] Serum or plasma gamma globul in measurement by electrophoresis (mass/volume)Ordered By: Bertha Cuevas on 02-26-2024 Gamma globulin Elph [Mass/Vol] 0.6 g/dL 0.4-1.8 [facility] Serum or plasma rheumatoid f actor measurement (units/volume)Ordered By: artem Cuevas on 02-26-2024 Rheumatoid factor Qn 12.8 [IU]/mL <14.0 [facility] Serum platelet glycoprotein IIb/IIIa antibody detection by immunoassayOrdered By: Bertha Cuevas on 02-26-2024 Platelet glycoprotein IIb/IIIa Ab IA Ql (S) Negative Negative [facility] Serum platelet glycoprotein Ia/IIa antibody detection by immunoassayOrdered By: Bertha Cuevas on 02-26-2024 Platelet glycoprotein Ia/IIa Ab IA Ql (S) Negative Negative [facility] Sodium [Moles/volume] in Ser um or PlasmaOrdered By: Bertha Cuevas on 02-26-2024 Sodium [Moles/Vol] 141 mmol/L Normal 136-145 [facility] Comment on above: Performed By: #### P LT AB S, SPE, RA, HBSAG, HIV SCREEN, KAPPA, HBSAB, HCV RX PCR, CAMILA, SADIE, HBCAB, SKIP SERUM, CU ####[facility] ,#### FISH NOT BLAD, MARÍA, TSH3, FLOW NEOGENOMIC, CMP, RETIC, CYTOGENE, SCAN CBC, FE and TIBC, T4F, [id number], LDH ####[facility] [id number] [place] [id number] [facility] Thyrotropin [Units/volume] i n Serum or PlasmaOrdered By: Bertha Cuevas on 02-26-2024 TSH Qn 1.44 m[IU]/L Normal 0.45-5.33 [facility] Comment on above: Result Comment: PERF ORMED BY: [place] [address] PATHOLOGIST SINKER WINDER OTTO HARLEY M.D. Performed By: #### O BS-GUAIAC #### [facility] [address] Thyroxine (T4) free [Mass/vo lume] in Serum or PlasmaOrdered By: Bertha Cuevas on 02-26-2024 Free T4 [Mass/Vol] 0.95 ng/dL Normal 0.61-1.12 [facility] Comment on above: Performed By: #### O BS-GUAIAC #### [facility] [address] Transferrin [Mass/volume] in Serum or PlasmaOrdered By: Bertha Cuevas on 02-26-2024 Transferrin [Mass/Vol] 155 mg/dL Low 203-362 [facility] Comment on above: Performed By: #### P LT AB S, SPE, RA, HBSAG, HIV SCREEN, KAPPA, HBSAB, HCV RX PCR, CAMILA, SADIE, HBCAB, SKIP SERUM, CU ####[facility] ,#### FISH NOT BLAD, MRAÍA, TSH3, FLOW NEOGENOMIC, CMP, RETIC, CYTOGENE, SCAN CBC, FE and TIBC, T4F, [id number], LDH ####[facility] [id number] Urea nitrogen [Mass/volume] in Serum or PlasmaOrdered By: Bertha Cuevas on 02-26-2024 Urea nitrogen [Mass/Vol] 34 mg/dL High 7-25 [facility] Comment on above: Performed By: #### P LT AB S, SPE, RA, HBSAG, HIV SCREEN, KAPPA, HBSAB, HCV RX PCR, CAMILA, SADIE, HBCAB, SKIP SERUM, CU ####[facility] ,#### FISH NOT BLAD, MARÍA, TSH3, FLOW NEOGENOMIC, CMP, RETIC, CYTOGENE, SCAN CBC, FE and TIBC, T4F, [id number], LDH ####[facility]1111 [place] [id number] [facility] Vit. B12/Folate Profileon Folate > 49.6 Normal >5.9 [facility] Comment on above: Result Comment: Edwina te reference range: >5.9 ng/ml The WHO technical consultation on folate and vitamin b12 deficiencies has determined that folate concentrations less than 4 ng/ml are considered deficient. Performed By: #### P LT AB S, SPE, RA, HBSAG, HIV SCREEN, KAPPA, HBSAB, HCV RX PCR, CAMILA, SADIE, HBCAB, SKIP SERUM, CU ####[facility] ,#### FISH NOT BLAD, MARÍA, TSH3, FLOW NEOGENOMIC, CMP, RETIC, CYTOGENE, SCAN CBC, FE and TIBC, T4F, [id number], LDH ####[facility] Vitamin B12 ser/plasOrdered By: Betrha Cuevas on 02-26-2024 Cobalamin (Vitamin B12) [Mass/Vol] 1961 pg/mL High 180-914 [facility] Comment on above: Performed By: #### P LT AB S, SPE, RA, HBSAG, HIV SCREEN, KAPPA, HBSAB, HCV RX PCR, CAMILA, SADIE, HBCAB, SKIP SERUM, CU ####[facility] ,#### FISH NOT BLAD, MARÍA, TSH3, FLOW NEOGENOMIC, CMP, RETIC, CYTOGENE, SCAN CBC, FE and TIBC, T4F, [id number], LDH ####[facility]1111 [place] 2248370 [facility] CT WATCHMAN FULL CONTRASTon 12-28-2023 CT WATCHMAN FULL CONTRAST Interpreted By: Carlitos Aguilera, STUDY: CT WATCHMAN FULL CONTRAST; 12/28/2023 10:40 am INDICATION: Signs/Symptoms:A-fib, Post-Watchman. COMPARISON: CT dated 08/28/2023 ACCESSION NUMBER(S): [id number] ORDERING CLINICIAN: RYAN COBB TECHNIQUE: Using multi [...] chest in 12 months may be obtained. (Fresnostephanie Galarzaholashon et al., Guidelines for management of incidental pulmonary nodules detected on CT images: From the Fleischner Society 2017, Radiology. 2017 Mar;284 (1):228-243.) RINA.ACR.IF.1 MACRO: None Signed by: Carlitos Aguilera 12/28/2023 11:32 AM Dictation workstation: [id number] [facility] No Panel Informationon 12-27 Radiology Study observation (narrative) [facility] Work Phone: 1. Status post Watch [...] chest in 12 months may be obtained. (Fresnostephanie Mon et al., Guidelines for management of incidental pulmonary nodules detected on CT images: From the Fleischner Society 2017, Radiology. 2017 Nestor;284 (1):228-243.) RINA.ACR.IF.1 MACRO: None Signed by: Carlitos Aguilera 12/28/2023 11:32 AM Dictation workstation: [id number] Interpreted By: Carlitos Shah, STUDY: CT WATCHMAN FULL CONTRAST; 12/28/2023 10:40 am INDICATION: Signs/Symptoms:A-fib, Post-Watchman. COMPARISON: CT dated 08/28/2023 ACCESSION NUMBER(S): [id number] ORDERING CLINICIAN: RYAN COBB TECHNIQUE: Using multi [...] Post-Watchman. COMPARISON: CT dated 08/28/2023 ACCESSION NUMBER(S): [id number] ORDERING CLINICIAN: RYAN COBB TECHNIQUE: Using multi [...] Carlitos Aguilera 12/28/2023 11:32 AM Dictation workstation: [id number] [facility] Work Phone: No Panel InformationOrdered By: Carlitos Aguilera on 12-28-2023 [facility] Work Phone: Ambulatory Visit Summaryon 0 [...] 325 mg-50 mg-40 mg Tab) Misc Prescription ([employer] B-12 1,000 MCG TABLET) Non-Formulary Medication (Butapap cat 40mg PRN) atorvastatin clopidogrel (clopidogrel 75 mg Tab) doxazosin (doxazosin 4 mg Tab) finasteride (finasteride 5 mg Tab) fluoxetine (FLUoxetine 20 mg Cap) folic acid (folic acid 1 mg Tab) losartan (losartan 100 mg Tab) meclizine (meclizine 25 mg Tab) memantine (memantine 5 mg Tab) spironolactone (spironolactone 25 mg Tab) thyroid desiccated ([place] Thyroid) Procedures Performed Urethral dilatation (11/03/2022), TURP [...] [facility] [address] , [place] [address]- [phone] Medications What How Much When Instructions Changed tolterodine (tolterodine 2 mg Cap-ER) 1 Capsules By Mouth As Directed Take one cap in the morning and one at dinnertime. Pickup at [facility]/pharmacy #[id number] Unchanged APAP/ butalbital/ caffeine (APAP/ butalbital/ caffeine [...] if questions or concerns Unchanged thyroid desiccated ([place] Thyroid) By Mouth Every day Contact prescribing physician if questions or concerns Pharmacy Information [facility]/pharmacy #[id number]: [address], [place] [id number] [phone] Allergies No Known Allergies Problems Ongoing - Any problem that you are currently receiving treatment for. BPH with urinary obstruction Enuresis Hesitancy Hypertension Incomplete bladder emptying Intertrigo mild NC (myocardial infarction) Nocturia Protein in urine Proteinuria [...] fr (more content not included)... Normal [facility] Patient Educationon 12-03-19 Patient Education [...] health care provider. General instructions ? Take edoq-emd-asmkvut and prescription medicines only as told by [...] monitor yo (more content not included)... Normal [facility] Urology Office/Clinic Noteon 12-03-2023 Urology [...] morning and night). New rx sent to [facility]. -Double void maneuvers 2. BPH with [...] [facility]rology [address], [place] [address] [phone] Additional Instructions: 6 mos (increase med dosage) [...] Hesitancy Hypertension Incomplete bladder emptying Intertrigo mild NC (myocardial infarction) Nocturia Protein in urine Proteinuria Smoker Urethral meatal stenosis Urge incontinence Urinary incontinence without sensory awareness Urinary retention Historical No qualifying data Procedure/Surgical History Urethral dilatation (11/03/2022), TURP - Transurethral resection of prostate (08/31/2022), Cystoscopy (01/24/2022), Colonoscopy, Shoulder replacement. Medications APAP/butalbital/caffeine 325 mg-50 mg-40 mg Tab [place] Thyroid, Oral, Daily atorvastatin, Oral, Daily Butapap [...] lifetime) Tobac (more content not included)... Normal [facility] Comment on above: Result Comment: Elec tronically Signed By: Trung FERGUSON MD\.br\Date and Time Signed: 12/03/23 16:17 EDT\.br\Electronically Co-Signed By: Marcela Lake\.br\Date and Time Co-Signed: 12/03/23 16:16 EDT [facility] Laboratory Manager Details- Texton 11-20-2023 Cytogenetics Laboratory Manager Details- Text [facility] Laboratory Manager Details Entered On: 11/20/2023 9:57 EST Performed On: 11/20/2023 9:56 EST by Sahra Lizarraga RN [facility] Laboratory Manager Details Transport Mode Order Detail EV [...] : No Pacemaker Order Detail : 0 [facility] Laboratory Manager Details Review Status : Initial Review Nurse Collects Blood Specimens : Sahra Lerma RN - 11/20/2023 9:56 EST Normal [facility] Hospital Utilization Review Noteon Utilization Review Note EXT REC DAY 0. CASE CANCELLED DUE TO LOW H&H. Normal [facility] Utilization Review Noteon Utilization Review Note Reg as EXT REC, no documents. NOT IPO Still no information from preaccess yet. Still no information from preaccess yet. Approved for outpatient per preaccess. Normal [facility] HEMOon 11-16-2023 Nucleated RBC 0 /100WBC Normal [facility] Comment on above: Performed By: #### 1 54704, 498784 ####[facility] Ujzhzqcg30747 [place] [address] Medical Director: Eh Gould MD MAN DIFFon 11-16-[address] 0.12 x1000 Normal 0.00-0.70 [facility] Comment on above: Performed By: #### 1 68585, 585262 ####[facility] Hmjurwae30390 [place] [address] Medical Director: Eh Gould MD Absolute Eos Ct 0.07 x1000 Normal 0.00-0.50 [facility] Comment on above: Performed By: #### 1 21330, 028985 ####[facility] Rpkygmzq50669 [place], [place] 2361730 Medical Director: Eh Gould MD Absolute Lymph Ct 1.10 x1000 Low 1.20-4.80 [facility] Comment on above: Performed By: #### 1 89973, 825150 ####[facility] Pzgjinoe43549 [place] [address] Medical Director: Eh Gould MD Absolute Neutrophil Ct 1.22 x1000 Low 1.40-8.80 [facility] Comment on above: Performed By: #### 1 46723, 430232 ####[facility] Dlhdgdic36856 [place] [address] Medical Director: Eh Gould MD Absolute Seg Ct 1.10 x1000 Low 1.40-8.80 [facility] Comment on above: Performed By: #### 1 , 464472 ####[facility] Opzurbvh16008 [place] [address] Medical Director: Eh Gould MD Band form neutrophils/100 WBC (Bld) 5 % Normal [facility] Comment on above: Performed By: #### 1 62405, 034979 ####[facility] Bslmghda71996 [place] [address] Medical Director: Eh Gould MD Eosinophils/100 WBC (Bld) 3 % Normal [facility] Comment on above: Performed By: #### 1 28233, 515347 ####[facility] Uidhjvum11684 [place] [address] Medical Director: Eh Gould MD Lymphocytes/100 WBC (Bld) 46 % Normal [facility] Comment on above: Performed By: #### 1 38019, 215424 ####[facility] Svcebqom67668 [place] [address] Medical Director: Eh Gould MD Macrocytosis Moderate Normal [facility] Comment on above: Performed By: #### 1 50040, 656145 ####[facility] Aorbrmxl74527 [place] [address] Medical Director: Eh Gould MD Segmented neutrophils/100 WBC (Bld) 46 % Normal [facility] Comment on above: Performed By: #### 1 75875, 219622 ####[facility] Opdmvyjp21291 [place] [address] Medical Director: Eh Gould MD ABORHon 11-15-2023 ABORH Interpretation Positive Normal [facility] Comment on above: Performed By: #### C D:[id number], CD:[id number] #### [facility] [address] [place] [address] Block Machine Operator: Eh Gould MD Patient History Check Previous Hx Normal [facility] Comment on above: Performed By: #### C D:[id number], CD:[id number] #### [facility] [address] [place] [address] 23148 Block Machine Operator: Eh Gould MD VS 0.8% a cells 0 Normal [facility] Comment on above: Performed By: #### C D:[id number], CD:[id number] #### [facility] [address] [place] [address] 720[address] Block Machine Operator: Eh Gould MD VS 0.8% b cells 3+ Normal [facility] Comment on above: Performed By: #### C D:[id number], CD:[id number] #### [facility] [address] [place] [address] 6[address]58 Block Machine Operator: Eh Gould MD VS Anti-A Unit 4+ Normal [facility] Comment on above: Performed By: #### C D:[id number], CD:[id number] #### [facility] [address] [place] [address] 42933 Block Machine Operator: Eh Gould MD VS Anti-B Unit 0 Normal [facility] Comment on above: Performed By: #### C D:[id number], CD:[id number] #### [facility] [address] [place] [address] 79926 Block Machine Operator: Eh Gould MD VS Anti-D Unit 4+ [facility] Comment on above: Performed By: #### C D:[id number], CD:[id number] #### [facility] [address] [place] [address] 9[address]65 Block Machine Operator: Eh Gould MD ABSCon 11-15-2023 ABSC Final Interp Negative [facility] Comment on above: Performed By: #### C D:[id number], CD:[id number] #### [facility] [address] [place] [address] 67[address] Block Machine Operator: Eh Gould MD Pt Hx check done? Yes [facility] Comment on above: Performed By: #### C D:[id number], CD:[id number] #### [facility] [address] [place] [address] 46772 Block Machine Operator: Eh Gould MD VS SCI Gel 0 [facility] Comment on above: Performed By: #### C D:[id number], CD:[id number] #### [facility] [address] [place] [address] 91621 Block Machine Operator: Eh Gould MD VS SCII Gel 0 [facility] Comment on above: Performed By: #### C D:[id number], CD:[id number] #### [facility] [address] [place] [address] 744[address] Block Machine Operator: Eh Gould MD DVT/VTE Risk [...] Price RN - 11/15/2023 13:48 EST Normal [facility] HEMOon 11-15-2023 DIFF? Yes Normal [facility] Comment on above: Performed By: #### 1 04814, 882197 ####[facility] Wjwwmfsn09123 [place], [place] [id number]) [phone] Director: Eh Gould MD [facility] Actions See Notes Abnormal [facility] Comment on above: Result Comment: Scan for RBC Morphology Scan Slide. Perform manual diff if needed. SNV Performed By: #### 1 , 175058 ####[facility] Ugyzfrlv56816 [place], [place] [address]) [phone] Director: Eh Gould MD Erythrocyte distribution width (RBC) [Ratio] 14.5 % Normal 11.5-14.5 [facility] Comment on above: Performed By: #### 1 , 335411 ####[facility] Rogdlswf61663 [place] [address] Medical Director: Eh Gould MD Hematocrit (Bld) [Volume fraction] 25.3 % Low 41.0-52.0 [facility] Comment on above: Performed By: #### 1 , 196435 ####[facility] Gmuwiszg42554 [place], [place] [id number]) [phone] Director: Eh Gould MD Hemoglobin (Bld) [Mass/Vol] 8.7 g/dL Low 13.5-17.5 [facility] Comment on above: Performed By: #### 1 , 400112 ####[facility] Rbuafzxq32508 [place], [place] [address]) [phone] Director: Eh Gould MD Instr WBC 2.4 Normal [facility] Comment on above: Performed By: #### 1 22448, 379257 ####[facility] Ovpiiraa77476 [place] [address] Medical Director: Eh Gould MD MCH (RBC) [Entitic mass] 38.3 pg High 27.0-34.0 [facility] Comment on above: Performed By: #### 1 , 813706 ####[facility] [address] [place], [place] [address] Medical Director: Eh Gould MD MCHC (RBC) [Mass/Vol] 34.6 g/dL Normal 32.0-37.0 [facility] Comment on above: Performed By: #### 1 , 311801 ####[facility] [address] [place], [place] [address]) [phone] Director: Eh Gould MD MCV (RBC) [Entitic vol] 110.6 fL High 80.0-100.0 [facility] Comment on above: Performed By: #### 1 , 007433 ####[facility] [address] [place] [address] Medical Director: Eh Gould MD Platelet 142 x10 Low 150-450 [facility] Comment on above: Performed By: #### 1 , 771027 ####[facility] [address] [place] [address] Medical Director: Eh Gould MD Platelet mean volume (Bld) [Entitic vol] 6.4 fL Low 7.4-10.4 [facility] Comment on above: Performed By: #### 1 96208, 169747 ####[facility] [address] [place] [address] Medical Director: Eh Gould MD RBC 2.29 x10 Low 4.70-6.10 [facility] Comment on above: Result Comment: Note : RBC morphology is normal unless otherwise stated. Evaluation performed only if differential is requested. Performed By: #### 1 23647, 685937 ####[facility] Srwpjzlk56909 [place] [address] [facility] MD WBC 2.4 x10 Low 4.5-11.0 [facility] Comment on above: Performed By: #### 1 16417, 225938 ####[facility] Xldeszxk74841 [place] [address] [facility] Director: Eh Gould MD Preadmission Testing Progres [...] must be reported to your surgeon. Normal [facility] Preadmission Testing Progress Note Faxed CBC results to Dr. Shaffer' s office. Called office and left a voice message regarding CBC results being faxed and a call back phone number. Dr. Shaffer's office phoned back, read CBC results from 11/15/23 and 10/12/23. She stated she will talk to Dr. Shaffer. No Orders received during the phone conversation. Normal [facility] UAon 11-15-2023 Appearance, U Clear Normal [facility] Comment on above: Performed By: #### 1 68291 #### [facility] [address] [place] [address] 64160 Block Machine Operator: Eh Gould MD Bilirubin, U Negative Normal Negative [facility] Comment on above: Performed By: #### 1 66823 #### [facility] [address] [place] [address] 49552 Block Machine Operator: Eh Gould MD Blood, U Small Abnormal Negative [facility] Comment on above: Performed By: #### 1 36995 #### [facility] [address] [place] [address] 42079 Block Machine Operator: Eh Gould MD Color, U Yellow Normal [facility] Comment on above: Performed By: #### 1 76017 #### [facility] [address] [place] [address] 20750 Block Machine Operator: Eh Gould MD Glucose Qual, U Negative Normal Negative [facility] Comment on above: Performed By: #### 1 08434 #### [facility] [address] [place] [address] 02673 Block Machine Operator: Eh Gould MD Ketones, U Negative Normal Negative [facility] Comment on above: Performed By: #### 1 31029 #### [facility] [address] [place] [address] 82731 Block Machine Operator: Eh Gould MD Leukocyte Esterase, U Negative Normal Negative [facility] Comment on above: Performed By: #### 1 57669 #### [facility] [address] [place] [address] 39142 Block Machine Operator: Eh Gould MD Mucous, U Occasional Normal [facility] Comment on above: Performed By: #### 1 96053 #### [facility] [address] [place] [address] 36920 Block Machine Operator: Eh Gould MD Nitrite, U Negative Normal Negative [facility] Comment on above: Performed By: #### 1 60824 #### [facility] [address] [place] [address] 59492 Block Machine Operator: Eh Gould MD pH, U 5.0 Normal 4.5-8.0 [facility] Comment on above: Performed By: #### 1 02717 #### [facility] [address] [place] [address] 38320 Block Machine Operator: Eh Gould MD Protein, U Negative Normal Negative [facility] Comment on above: Performed By: #### 1 09647 #### [facility] [address] [place] [address] 60386 Block Machine Operator: Eh Gould MD RBC/HPF, U <1 Normal 0-3 [facility] Comment on above: Performed By: #### 1 27006 #### [facility] [address] [place] [address] 32413 Block Machine Operator: Eh Gould MD Specific [place], U 1.014 Normal 1.001-1. 03 5 [facility] Comment on above: Performed By: #### 1 80200 #### [facility] [address] [place] [address] 24797 Block Machine Operator: Eh Gould MD Squamous Epithelial Cells, U <1 Normal [facility] Comment on above: Performed By: #### 1 42729 #### [facility] [address] [place] [address] 02075 Block Machine Operator: Eh Gould MD U MICRO Indicated Normal [facility] Comment on above: Performed By: #### 1 46052 #### [facility] [address] [place] [address] 50602 Block Machine Operator: Eh Gould MD Urobilinogen Qual, U <2.0 mg/dl Normal <2.0 mg/dl [facility] Comment on above: Result Comment: EU/d l and mg/dl are equivalent units. Performed By: #### 1 60512 #### [facility] [address] [place] [address] 52500 Block Machine Operator: Eh Gould MD WBC/HPF, U 2 #/HPF Normal 0-5 [facility] Comment on above: Performed By: #### 1 24420 #### [facility] [address] [place] [address] 26834 Block Machine Operator: Eh Gould MD Preadmission Testing Progres s Noteon 11-14-2023 Preadmission Testing Progress Note Registration called P.A.T.,stating the pt. may not show and reschedule. Pt did not show for appointment. Called Dr. Shaffer's office. Spoke to Alexandra, she stated the CT foe watchman check is scheduled for the 20 of November and is needed for the clearance to be completed. Normal [facility] ABORHon 10-15-2023 ABORH CK Interp Positive Normal [facility] Comment on above: Performed By: #### C D:[id number], CD:[id number] #### [facility] [address] [place], [place] [address]30 Block Machine Operator: Eh Gould MD Anti-A recheck 4+ Normal [facility] Comment on above: Performed By: #### C D:[id number], CD:[id number] #### [facility] [address] [place] [address] 18730 Block Machine Operator: Eh Gould MD Anti-B recheck 0 Normal [facility] Comment on above: Performed By: #### C D:[id number], CD:[id number] #### [facility] [address] [place] [address] 91663 Block Machine Operator: Eh Gould MD Anti-D recheck 3+ Normal [facility] Comment on above: Performed By: #### C D:[id number], CD:[id number] #### [facility] [address] [place] [address] Block Machine Operator: Eh Gould MD Pathologist Reviewon [...] ruled out. Clinical correlation is recommended. Normal [facility] Comment on above: Order Comment: Added on by Discern Expert Rule. Result Comment: CAMILA ZEPEDA (Electronic Signature) Date Verified 10/15/23 Performed By: #### 9 102521, 747239, 5897070, 648361, 574790, 614263 ####[facility] Qarvvimd25315 [place] [address] Medical Director: Eh Gould MD [...] voice mail all available numbers for office, surgery attendant and PA. Left messages on voice mail [...] patient and and notify surgery scheduling. Normal [facility] Utilization Review Noteon Utilization Review Note [...] SHOULDER REPLACEMENT CANCELED PER PREACCESS. CANCELLED. Normal [facility] ABORHon 10-12-2023 ABORH Interpretation Positive Normal [facility] Comment on above: Performed By: #### C D:[id number], CD:[id number] #### [facility] [address] [place], [place] [address]30 Block Machine Operator: Eh Gould MD Patient History Check No Previous Hx Normal [facility] Comment on above: Result Comment: 09/24 10:30 189940 ABO Recheck to be ordered on admit. Surgery Date: 10/16/23 Performed By: #### C D:[id number], CD:[id number] #### [facility] [address] [place], [place] [address]30 Block Machine Operator: Eh Gould MD VS 0.8% a cells 0 [facility] Comment on above: Performed By: #### C D:[id number], CD:[id number] #### [facility] [address] [place] [address] [id number] Block Machine Operator: Eh Gould MD VS 0.8% b cells 3+ Normal [facility] Comment on above: Performed By: #### C D:[id number], CD:[id number] #### [facility] [address] [place] [address] [id number] Block Machine Operator: Eh Gould MD VS Anti-A Unit 4+ Normal [facility] Comment on above: Performed By: #### C D:[id number], CD:[id number] #### [facility] [address] [place] [address] [id number] Block Machine Operator: Eh Gould MD VS Anti-B Unit 0 [facility] Comment on above: Performed By: #### C D:[id number], CD:[id number] #### [facility] [address] [place] [address] Block Machine Operator: Eh Gould MD VS Anti-D Unit 4+ [facility] Comment on above: Performed By: #### C D:[id number], CD:[id number] #### [facility] [address] [place] [address] 17271 Block Machine Operator: Eh Gould MD ABSCon 10-12-2023 ABSC Final Interp Negative [facility] Comment on above: Performed By: #### C D:[id number], CD:[id number] ####[facility] [address] [place] [address] Medical Director: Eh Gould MD Pt Hx check done? Yes [facility] Comment on above: Performed By: #### C D:[id number], CD:[id number] ####[facility] [address] [place] [address] Medical Director: Eh Gould MD VS SCI Gel 0 [facility] Comment on above: Performed By: #### C D:[id number], CD:[id number] ####[facility] [address] [place] [address] Medical Director: Eh Gould MD VS SCII Gel 0 [facility] Comment on above: Performed By: #### C D:[id number], CD:[id number] ####[facility] [address] [place] [address] Medical Director: Eh Gould MD APTTon 10-12-2023 aPTT Coag (Bld) [Time] 29.5 s Normal 27.0-38.0 [facility] Comment on above: Result Comment: APTT Interpretation: This test has not been validated to monitor heparin therapy. APTT test is used as an initial test for suspected bleeding disorder. Anti-Xa UFH test is used to monitor heparin therapy. Performed By: #### 9 129726, 797615, 4167198, 882213, 378106, 055350 ####[facility] Ptgahbgo94149 [place], [place] [address]40) [phone] Director: Eh Gould MD AUTO DIFFon 10-12-2023 Baso Count 0.02 x1000 Normal 0.00-0.20 [facility] Comment on above: Performed By: #### 9 575163, 173705, 9934216, 752555, 287033, 633551 ####[facility] Nuqxldyi55230 [place] [address] Medical Director: Eh Gould MD Basos % 0.8 % Normal [facility] Comment on above: Performed By: #### 9 580311, 796343, 7955435, 347828, 074099, 174976 ####[facility] Cbprnlef63525 [place], [place] [address]) [phone] Director: Eh Gould MD Eos Count 0.21 x1000 Normal 0.00-0.50 [facility] Comment on above: Performed By: #### 9 615285, 619903, 8416589, 952762, 296753, 246915 ####[facility] Ztbntyeq45746 [place] [address] Medical Director: Eh Gould MD Eosinophils/100 WBC (Bld) 7.5 % Normal [facility] Comment on above: Performed By: #### 9 942000, 748054, 4767468, 560885, 636359, 274602 ####[facility] Iynrnaqp59796 [place] [address] Medical Director: Eh Gould MD Lymph Count 1.03 x1000 Low 1.20-4.80 [facility] Comment on above: Performed By: #### 9 683534, 885573, 1876711, 486343, 961298, 213243 ####[facility] Nbrcjywj33904 [place] [address] Medical Director: Eh Gould MD Lymphocytes/100 WBC (Bld) 36.5 % Normal [facility] Comment on above: Performed By: #### 9 407280, 297500, 3686656, 943399, 898272, 902093 ####[facility] Vqgwypzh77712 [place] [address] Medical Director: Eh Gould MD [place] Count 0.08 x1000 Low 0.10-1.00 [facility] Comment on above: Performed By: #### 9 211597, 523763, 3084951, 024210, 262038, 965618 ####[facility] Chtyfnnp92458 [place] [address] Medical Director: Eh Gould MD Monocytes/100 WBC (Bld) 2.8 % Normal [facility] Comment on above: Performed By: #### 9 580936, 647308, 4035052, 840974, 066017, 937502 ####[facility] Gfpcizzc36206 [place] [address] Medical Director: Eh Gould MD Neutrophil Count (ANC) 1.48 x1000 Normal 1.40-8.80 [facility] Comment on above: Performed By: #### 9 781849, 319602, 7397422, 328389, 386462, 225474 ####[facility] Dnpntxzq02564 [place] [address] Medical Director: Eh Gould MD Neutrophils/100 WBC (Bld) 52.5 % Normal [facility] Comment on above: Performed By: #### 9 820303, 241478, 8733134, 801835, 194612, 500060 ####[facility] Tkvrpiiv96638 [place], [place] [address]) [phone] Director: Eh Gould MD Red Blood Cell Morphology See Notes Abnormal [facility] Comment on above: Result Comment: Macr ocytosis 2+ Rouleaux 1+ Performed By: #### 9 458781, 179094, 3420790, 753549, 077291, 146024 ####[facility] Gjksvaoy19951 [place], [place] [address]) [phone] Director: Eh Gould MD Scan Differential Diff Scd Normal [facility] Comment on above: Result Comment: Slid e reviewed by technologist. Performed By: #### 9 082950, 338792, 6444814, 847708, 491643, 356046 ####[facility] Unimyjux87084 [place], [place] [address]) [phone] Director: Eh Gould MD BASICMETAon 10-12-2023 Calcium [Mass/Vol] 10.1 mg/dL Normal 8.7-10.4 [facility] Comment on above: Performed By: #### 9 579520, 286159, 6296018, 929128, 381952, 321192 ####[facility] Tvfioeka83888 [place], [place] 1992[address]40) [phone] Director: Eh Gould MD Chloride [Moles/Vol] 103 mmol/L Normal 98-107 [facility] Comment on above: Performed By: #### 9 012240, 033697, 5759904, 369134, 092903, 364711 ####[facility] Bcndmhyy57689 [place] [address] Medical Director: Eh Gould MD CO2 [Moles/Vol] 27.0 mmol/L Normal 20.0-31.0 [facility] Comment on above: Performed By: #### 9 155687, 283409, 9397487, 352446, 260165, 424104 ####[facility] [facility] Lmtldlrk13801 [place] [address] Medical Director: Eh Gould MD Creatinine [Mass/Vol] 1.2 mg/dL High 0.6-1.1 [facility] Comment on above: Performed By: #### 9 916692, 253747, 7530480, 677873, 747862, 394624 ####[facility] Xotuwksr82584 [place] [address] Medical Director: Eh Gould MD GFR AA >60 Normal [facility] Comment on above: Result Comment: Afri can Libyan GFR Calc Medical judgement is necessary to [...] for drug dosing. Performed By: #### 9 412477, 592932, 8847864, 616190, 483101, 838422 ####[facility] Ovoegfjj12482 [place] [address] Medical Director: Eh Gould MD Glomerular Filtration Rate 59 mL/min/1.73m? Normal [facility] Comment on above: Result Comment: Non- [...] for drug dosing. Performed By: #### 9 353332, 611920, 3952814, 217091, 060250, 977390 ####[facility] Rjclhkad59716 [place] [address] Medical Director: Eh Gould MD Glucose [Mass/Vol] 111 mg/dL High 74-106 [facility] Comment on above: Performed By: #### 9 850153, 811891, 4759318, 480403, 309495, 452438 ####[facility] Rrjjzvpp29941 [place], [place] [id number]) [phone] Director: Eh Gould MD Osmolality [Osmolality] 281 mosm/kg Normal 275-295 [facility] Comment on above: Performed By: #### 9 389539, 223950, 3590403, 536149, 728421, 770729 ####[facility] Vqkitpts09823 [place] [address] Medical Director: Eh Gould MD Potassium [Moles/Vol] 4.0 mmol/L Normal 3.5-5.1 [facility] Comment on above: Performed By: #### 9 828948, 187302, 7460743, 851261, 864818, 184672 ####[facility] Uyyuzpkl40895 [place] [address] Medical Director: Eh Gould MD Sodium [Moles/Vol] 140 mmol/L Normal 135-145 [facility] Comment on above: Performed By: #### 9 514898, 197477, 1951283, 860299, 265195, 007530 ####[facility] Tlyaxxlc69868 [place] [address] Medical Director: Eh Gould MD Urea nitrogen [Mass/Vol] 16 mg/dL Normal 9-23 [facility] Comment on above: Result Comment: - Ve nipuncture should occur prior to N-Acetyl Cysteine (NAC) or Metamizole (Sulpyrine) administration due to the potential for falsely depressed results. - Blood samples from some patients with monoclonal gammopathies may produce falsely elevated results Performed By: #### 9 738588, 752786, 1822388, 227766, 217654, 970083 ####[facility] Tojruetq14674 [place], [place] [address]) [phone] Director: Eh Gould MD Urea nitrogen/Creatinine [Mass ratio] 13.3 mg/mg Normal [facility] Comment on above: Performed By: #### 9 880787, 983083, 2921425, 700250, 034008, 304830 ####[facility] Pxunxsit40309 [place] [address] Medical Director: Eh Gould MD HEMOon 10-12-2023 DIFF? No Normal [facility] Comment on above: Performed By: #### 9 252417, 751009, 1078606, 966068, 310995, 739713 ####[facility] Wmsgrfyu59140 [place], [place] [address]) [phone] Director: Eh Gould MD DxH Actions See Notes Abnormal [facility] Comment on above: Result Comment: Scan for RBC Morphology Scan Slide. Perform manual diff if needed. SNV Performed By: #### 9 535827, 289925, 1806534, 997327, 732567, 053815 ####[facility] Hezejgad01783 [place], [place] [address]) [phone] Director: Eh Gould MD Erythrocyte distribution width (RBC) [Ratio] 13.5 % Normal 11.5-14.5 [facility] Comment on above: Performed By: #### 9 952077, 923999, 3171948, 199251, 755056, 864246 ####[facility] Iowcednk08600 [place] [address] Medical Director: Eh Gould MD HEM PATH REVIEW See Diff Review Interp Normal [facility] Comment on above: Performed By: #### 9 972411, 450149, 7183279, 699407, 000716, 276233 ####[facility] Phukywsr64278 [place] [address] Medical Director: Eh Gould MD Hematocrit (Bld) [Volume fraction] 27.4 % Low 41.0-52.0 [facility] Comment on above: Performed By: #### 9 535698, 876581, 5060279, 830106, 868768, 414441 ####[facility] Veojmfew50035 [place], [place] [address]) [phone] Director: Eh Gould MD Hemoglobin (Bld) [Mass/Vol] 9.4 g/dL Low 13.5-17.5 [facility] Comment on above: Performed By: #### 9 027071, 019813, 5185957, 211436, 659223, 643787 ####[facility] Ukfodxqg68416 [place], [place] [address]) [phone] Director: Eh Gould MD Instr WBC 2.8 Normal [facility] Comment on above: Performed By: #### 9 122772, 639744, 0402316, 511441, 115890, 873419 ####[facility] Xlucfxfs12476 [place] [address] Medical Director: Eh Gould MD MCH (RBC) [Entitic mass] 37.4 pg High 27.0-34.0 [facility] Comment on above: Performed By: #### 9 403981, 619276, 1729778, 073450, 833254, 018738 ####[facility] Qudqmfjh32010 [place], [place] [address]) [phone] Director: Eh Gould MD MCHC (RBC) [Mass/Vol] 34.2 g/dL Normal 32.0-37.0 [facility] Comment on above: Performed By: #### 9 582563, 391866, 3353116, 575556, 139689, 305965 ####[facility] Kxoytluj43273 [place], [place] [address]) [phone] Director: Eh Gould MD MCV (RBC) [Entitic vol] 109.4 fL High 80.0-100.0 [facility] Comment on above: Performed By: #### 9 713324, 896599, 8624289, 371306, 248585, 303638 ####[facility] Hvzszxhe21366 [place] [address] Medical Director: Eh Gould MD Nucleated RBC 0 /100WBC Normal [facility] Comment on above: Performed By: #### 9 281204, 332857, 8788062, 105603, 360790, 635606 ####[facility] Hvpixneo76148 [place] [address] Medical Director: Eh Gould MD Platelet 165 x10 Normal 150-450 [facility] Comment on above: Performed By: #### 9 021499, 071688, 6315579, 228609, 529705, 061012 ####[facility] Oylbgtmm76826 [place] [address] Medical Director: Eh Gould MD Platelet mean volume (Bld) [Entitic vol] 6.3 fL Low 7.4-10.4 [facility] Comment on above: Performed By: #### 9 125470, 842070, 7400971, 743177, 587189, 836620 ####[facility] Rxjfhwwh00614 [place] [address] Medical Director: Eh Gould MD RBC 2.51 x10 Low 4.70-6.10 [facility] Comment on above: Result Comment: Note : RBC morphology is normal unless otherwise stated. Evaluation performed only if differential is requested. Performed By: #### 9 166644, 464986, 0011569, 776298, 000313, 226660 ####[facility] Xlctmvbz97940 [place] [address] Medical Director: Eh Gould MD WBC 2.8 x10 Low 4.5-11.0 [facility] Comment on above: Performed By: #### 9 887281, 387845, 7671319, 131038, 214908, 123745 ####[facility] Bwvttrxl28365 [place] [address] Medical Director: Eh Gould MD PT INRon 10-12-2023 INR Coag (PPP) [Relative time] 1.2 {INR} Normal [facility] Comment on above: Result Comment: INR Reference Range: Normal reference range for INR on patients not on anticoagulant therapy: 0.9-1.1 General therapeutic range for patients on anticoagulant therapy: 2.0-3.5 Performed By: #### 9 386232, 262956, 6008603, 448696, 035231, 338743 ####[facility] Gwjshchz84215 [place] [address] Medical Director: Eh Gould MD Protime Patient 13.4 seconds High 9.8-12.8 [facility] Comment on above: Performed By: #### 9 020583, 135588, 5594952, 691366, 411549, 817222 ####[facility] Mlvlnmdc28824 [place], [place] [address] Medical Director: Eh Gould MD Preadmission Testing [...] surgeon. Simba TOLEDO, Dante Lanier on Normal [facility] UAon 10-12-2023 Appearance, U Clear Normal [facility] Comment on above: Performed By: #### 1 87147 #### [facility] [address] [place] [address] Block Machine Operator: Eh Gould MD Bilirubin, U Negative Normal Negative [facility] Comment on above: Performed By: #### 1 37355 #### [facility] [address] [place] [address] Block Machine Operator: Eh Gould MD Blood, U Moderate Abnormal Negative [facility] Comment on above: Performed By: #### 1 78771 #### [facility] [address] [place] [address] Block Machine Operator: Eh Gould MD Color, U Yellow Normal [facility] Comment on above: Performed By: #### 1 92403 #### [facility] [address] [place] [address] Block Machine Operator: Eh Gould MD Glucose Qual, U Negative Normal Negative [facility] Comment on above: Performed By: #### 1 61868 #### [facility] [address] [place] [address] Block Machine Operator: Eh Gould MD Hyaline Cast <1 Normal [facility] Comment on above: Performed By: #### 1 74450 #### [facility] [address] [place] [address] Block Machine Operator: Eh Gould MD Ketones, U Negative Normal Negative [facility] Comment on above: Performed By: #### 1 54746 #### [facility] [address] [place] [address] Block Machine Operator: Eh Gould MD Leukocyte Esterase, U Negative Normal Negative [facility] Comment on above: Performed By: #### 1 86270 #### [facility] [address] [place] [address] Block Machine Operator: Eh Gould MD Mucous, U Occasional Normal [facility] Comment on above: Performed By: #### 1 22642 #### [facility] [address] [place] [address] Block Machine Operator: Eh Gould MD Nitrite, U Negative Normal Negative [facility] Comment on above: Performed By: #### 1 39479 #### [facility] [address] [place] [address] 29568 Block Machine Operator: Eh Gould MD pH, U 5.0 Normal 4.5-8.0 [facility] Comment on above: Performed By: #### 1 41367 #### [facility] [address] [place] [address] Block Machine Operator: Eh Gould MD Protein, U Negative Normal Negative [facility] Comment on above: Performed By: #### 1 91511 #### [facility] [address] [place] [address] 616[address] Block Machine Operator: Eh Gould MD RBC/HPF, U 5 #/HPF High 0-3 [facility] Comment on above: Performed By: #### 1 71867 #### [facility] [address] [place] [address] Block Machine Operator: Eh Gould MD Specific [place], U 1.016 Normal 1.001-1. 03 5 [facility] Comment on above: Performed By: #### 1 25428 #### [facility] [address] [place] [address] 832[address] Block Machine Operator: Eh Gould MD U MICRO Indicated Normal [facility] Comment on above: Performed By: #### 1 41902 #### [facility] [address] [place] [address] Block Machine Operator: Eh Gould MD Urobilinogen Qual, U <2.0 mg/dl Normal <2.0 mg/dl [facility] Comment on above: Result Comment: EU/d l and mg/dl are equivalent units. Performed By: #### 1 40459 #### [facility] [address] [place] [address] Block Machine Operator: Eh Gould MD WBC/HPF, U 7 #/HPF High 0-5 [facility] Comment on above: Performed By: #### 1 60899 #### [facility] [address] [place] [address] Block Machine Operator: Eh Gould MD Activated clotting timeon ACT Coag (Bld) 271 s High 89-169 [facility] Comment on above: Result Comment: Targ et ACT range will vary based on the patient population, clinical status, and surgical intervention occurring. Performed By: #### 3 184-9 #### JAVAD Stephenson ([id number]) [facility] ([facility]) [address] [place] [address] CT WATCHMAN FULL CONTRASTon 08-28-2023 CT WATCHMAN FULL CONTRAST Interpreted By: Purnima Lira, STUDY: CT WATCHMAN FULL CONTRAST; 08/28/2023 12:00 pm INDICATION: Signs/Symptoms:pre Watchman procedure SAME DAY CT. COMPARISON: None. ACCESSION NUMBER(S): [id number] ORDERING CLINICIAN: RYAN COBB TECHNIQUE: Using multi [...] Purnima Lira 09/06/2023 9:28 AM Dictation workstation: [id number] [facility] ECG 12-LEADon 08-28-2023 ECG 12-LEAD Ventricular Rate 63 Atrial Rate 63 P-R Interval 196 QRS Duration 86 Q-T Interval 402 QTC Calculation(Bazett) 411 P [place] 67 R [place] -1 T [place] 20 QRS Count 10 Q Onset 223 P Onset 125 P Offset 180 T Offset 424 QTC Fredericia 408 Diagnosis Normal sinus rhythm Inferior infarct Possible Anterior infarct Abnormal ECG Confirmed by Benny Obrien ([id number]) on 08/30/2023 3:59:32 PM Normal [facility] STRUCTURAL HEART PROCEDUREon 08-28-2023 STRUCTURAL HEART PROCEDURE [facility], [employer], [address] [place] [address] Cardiovascular Catheterization Report Patient Name: NEIL WILCOX Performing Physician: [id number] Cobb MD Study Date: 08/28/2023 Verifying Physician: [id number] Cobb MD MRN/PID: [id number] Stereo Map Plotter Operator/Co-scrub: Ordering Physician: [id number] COBB Date of 1945 Fellow: [id number] Adam Benedict /Age: years Gender: M Fellow: [...] guidance, transseptal puncture was with a versacross (ItrybeforeIbuy), accessing the left atrium. The transseptal tract was then dilated with a Watchman Double Curve access sheath and the ICE probe was advanced through the dilated tract into the left atrium. Next, a 6 [place]se angled pigtail was advanced through the delivery [...] CPT Codes: Perc left atrial appendage closure (LAAC)-45395 [id number] Ryan Cobb MD Performing Physician Final [facility] TRANSTHORACIC ECHO (TTE) [facility] IT[facility]on 08-28-2023 TRANSTHORACIC ECHO (TTE) [facility], [address] [place] [address] and TRANSTHORACIC ECHOCARDIOGRAM REPORT Patient Name: NEIL Matthews JERI Reading Physician: [id number] Kandis Chau MD Study Date: 08/28/2023 Ordering Provider: [id number] LUCAS PEARCE MRN/PID: [id number] Fellow: Nurse: Date of /Age: 1 1945 / 77 years Motel Manager: Moncho Infante RDCS Gender: M Additional Staff: Height: 175.26 cm Admit Date: 08/28/2023 Weight: 79.38 kg Admission Status: Inpatient - Routine BSA: 1.95 m2 Department Location: [facility] Non Invasive Study Type: TRANSTHORACIC ECHO (TTE) LIMITED Diagnosis/ICD: Unspecified atrial fibrillation-I48.91 Indication: Pre-LAAO CPT Code: Echo Limited-17879 Patient History: Pertinent History: HTN; HLD: paroxysmal [...] VALVE/RVSP: Normal Ranges: IVC Diam: 1.50 cm [id number] Kandis Chau MD Electronically signed on 08/28/2023 at 3:17:19 PM Final Normal [facility] TRANSTHORACIC ECHO (TTE) LIMITED [facility], [address] [place] [address] and TRANSTHORACIC ECHOCARDIOGRAM REPORT Patient Name: NEIL Aldana Physician: [id number] Jacobo French MD Study Date: 08/28/2023 Ordering Provider: [id number] LUCAS PEARCE MRN/PID: [id number] Fellow: Nurse: Date of 1945 Motel Manager: Moncho Infante RDCS /Age: years Gender: M Additional Staff: Height: 175.26 cm Admit Date: 08/28/2023 Weight: 79.38 kg Admission Status: Inpatient - Routine BSA: 1.95 m2 [facility] Cath Location: Lab Blood Pressure: 137 /78 mmHg Study Type: TRANSTHORACIC ECHO (TTE) LIMITED Diagnosis/ICD: Unspecified atrial fibrillation-I48.91 Indication: POST LAAO CPT Code: Echo Limited-55377 Patient History: Pertinent History: HTN; HLD; paroxysmal [...] 72.4 g/m2 LV % FS 32.6 % [id number] Jacobo French MD Electronically signed on 08/28/2023 at 5:50:59 PM Final Normal [facility] US Heart Transthoracicon [facility], [address] [place] [address] and TRANSTHORACIC ECHOCARDIOGRAM REPORT Patient Name: NEIL WILCOX Reading Physician: [id number] Kandis Chau MD Study Date: 08/28/2023 Ordering Provider: [id number] LUCAS PEARCE MRN/PID: [id number] Fellow: Nurse: Date of /Age: 1 1945 / 77 years Motel Manager: Moncho Infante RDCS Gender: M Additional Staff: Height: 175.26 cm Admit Date: 08/28/2023 Weight: 79.38 kg Admission Status: Inpatient - Routine BSA: 1.95 m2 Department Location: [facility] Non Invasive Study Type: TRANSTHORACIC ECHO (TTE) LIMITED Diagnosis/ICD: Unspecified atrial fibrillation-I48.91 Indication: Pre-LAAO CPT Code: Echo Limited-84835 Patient History: Pertinent History: HTN; HLD: paroxysmal [...] VALVE/RVSP: Normal Ranges: IVC Diam: 1.50 cm [id number] Kandis Chau MD Electronically signed on 08/28/2023 at 3:17:19 PM Final Kandis Bhatt MD - 08/28/2023 [facility], [address] [place] [address] and TRANSTHORACIC ECHOCARDIOGRAM REPORT Patient Name: NEIL WILCOX Reading Physician: [id number] Kandis Chau MD Study Date: 08/28/2023 Ordering Provider: [id number] LUCAS PEARCE MRN/PID: [id number] Fellow: Nurse: Date of /Age: 1 1945 / 77 years Motel Manager: Moncho Infante RDCS Gender: M Additional Staff: Height: 175.26 cm Admit Date: 08/28/2023 Weight: 79.38 kg Admission Status: Inpatient - Routine BSA: 1.95 m2 Department Location: [facility] Non Invasive Study Type: TRANSTHORACIC ECHO (TTE) LIMITED Diagnosis/ICD: Unspecified atrial fibrillation-I48.91 Indication: Pre-LAAO CPT Code: Echo Limited-08828 Patient History: Pertinent History: HTN; HLD: paroxysmal [...] VALVE/RVSP: Normal Ranges: IVC Diam: 1.50 cm [id number] Kandis Chau MD Electronically signed on 08/28/2023 at 3:17:19 PM Final [facility] Work Phone: US Heart TransthoracicOrdere d By: Kandis Chau on 08-28-2023 [facility] Work Phone: Creatinineon 08-22-2023 Creatinine [Mass/Vol] 1.23 mg/dL Normal 0.50-1.30 [facility] Comment on above: Performed By: #### 2 160-0 #### LINDA GALLAGHER ([id number]) [facility] ([facility]) [address] [place] [address] Creatinine [Mass/Vol]on 07-26 GFR/1.73 sq M.predicted MDRD (S/P/Bld) [Vol rate/Area] 61 mL/min/1.73m*2 Normal >60 [facility] Comment on above: Result Comment: Calc ulations of estimated GFR are performed using the 2020 CKD-EPI Study Refit equation without the race variable for the IDMS-Traceable creatinine methods. https://jasn.asnjournals.org/content/early/ASN.62399 12797 Performed By: #### 2 160-0 #### LINDA GALLAGHER ([id number]) [facility] ([facility]) [address] [place] [address] 42884 CBC W Auto Differential pane l (Bld)on 07-31-2023 Basophils (Bld) [#/Vol] 10*3/uL Normal <0.11 [facility] Comment on above: Order Comment: Speci men Type: BLOOD SPECIMEN Ordering Facility: External Submitter Address: , , Performed By: #### 5 7021-8 #### [facility] CLIA [id number] [address] [place] [address] [place] Basophils/100 WBC (Bld) 0.3 % Normal [facility] Comment on above: Order Comment: Speci men Type: BLOOD SPECIMEN Ordering Facility: External Submitter Address: , , Performed By: #### 5 7021-8 #### [facility] CLIA [id number] [address] [place] [address] [place] CBC W Differential panel, method unspecified (Bld) Done Normal [facility] Comment on above: Order Comment: Speci men Type: BLOOD SPECIMEN Ordering Facility: External Submitter Address: , , Performed By: #### 5 7021-8 #### [facility] CLIA [id number] [address] [place] [address] [place] Differential cell count method Nom (Bld) Auto Normal [facility] Comment on above: Order Comment: Speci men Type: BLOOD SPECIMEN Ordering Facility: External Submitter Address: , , Performed By: #### 5 7021-8 #### [facility] CLIA [id number] [facility] [place] [address] [place] Eosinophils (Bld) [#/Vol] 0.22 10*3/uL Normal <0.46 [facility] Comment on above: Order Comment: Speci men Type: BLOOD SPECIMEN Ordering Facility: External Submitter Address: , , Performed By: #### 5 7021-8 #### [facility] CLIA [id number] [address] [place] [address] [place] Eosinophils/100 WBC (Bld) 6.5 % Normal [facility] Comment on above: Order Comment: Speci men Type: BLOOD SPECIMEN Ordering Facility: External Submitter Address: , , Performed By: #### 5 7021-8 #### [facility] CLIA [id number] [address] [place] [address] [place] Erythrocyte distribution width (RBC) [Ratio] 13.0 % Normal 11.5-15.0 [facility] Comment on above: Order Comment: Speci men Type: BLOOD SPECIMEN Ordering Facility: External Submitter Address: , , Performed By: #### 5 7021-8 #### [facility] CLIA [id number] [address] [place] [address] [place] Hematocrit (Bld) [Volume fraction] 31.3 % Low 39.0-51.0 [facility] Comment on above: Order Comment: Speci men Type: BLOOD SPECIMEN Ordering Facility: External Submitter Address: , , Performed By: #### 5 7021-8 #### [facility] CLIA [id number] [address] [place] [address] [place] Hemoglobin (Bld) [Mass/Vol] 10.4 g/dL Low 13.0-17.0 [facility] Comment on above: Order Comment: Speci men Type: BLOOD SPECIMEN Ordering Facility: External Submitter Address: , , Performed By: #### 5 7021-8 #### [facility] CLIA [id number] [address] [place] [address] [place] Immature granulocytes (Bld) [#/Vol] 10*3/uL Normal <0.10 [facility] Comment on above: Order Comment: Speci men Type: BLOOD SPECIMEN Ordering Facility: External Submitter Address: , , Performed By: #### 5 7021-8 #### [facility] CLIA [id number] [address] [place] [address] [place] Immature granulocytes/100 WBC (Bld) 0.0 % Normal [facility] Comment on above: Order Comment: Speci men Type: BLOOD SPECIMEN Ordering Facility: External Submitter Address: , , Performed By: #### 5 7021-8 #### [facility] CLIA [id number] [address] [place] [address] [place] Lymphocytes (Bld) [#/Vol] 1.06 10*3/uL Normal 1.00-4.00 [facility] Comment on above: Order Comment: Speci men Type: BLOOD SPECIMEN Ordering Facility: External Submitter Address: , , Performed By: #### 5 7021-8 #### [facility] CLIA [id number] [address] [place] [address] [place] Lymphocytes/100 WBC (Bld) 31.2 % Normal [facility] Comment on above: Order Comment: Speci men Type: BLOOD SPECIMEN Ordering Facility: External Submitter Address: , , Performed By: #### 5 7021-8 #### [facility] CLIA [id number] [address] [place] [address] [place] MCH (RBC) [Entitic mass] 37.3 pg High 26.0-34.0 [facility] Comment on above: Order Comment: Speci men Type: BLOOD SPECIMEN Ordering Facility: External Submitter Address: , , Performed By: #### 5 7021-8 #### [facility] CLIA [id number] [address] [place] [address] [place] MCHC (RBC) [Mass/Vol] 33.2 g/dL Normal 30.5-36.0 [facility] Comment on above: Order Comment: Speci men Type: BLOOD SPECIMEN Ordering Facility: External Submitter Address: , , Performed By: #### 5 7021-8 #### [facility] CLIA [id number] [address] [place] [address] [place] MCV (RBC) [Entitic vol] 112.2 fL High 80.0-100.0 [facility] Comment on above: Order Comment: Speci men Type: BLOOD SPECIMEN Ordering Facility: External Submitter Address: , , Performed By: #### 5 7021-8 #### [facility] CLIA [id number] [address] [place] [address] [place] Monocytes (Bld) [#/Vol] 0.13 10*3/uL Normal <0.87 [facility] Comment on above: Order Comment: Speci men Type: BLOOD SPECIMEN Ordering Facility: External Submitter Address: , , Performed By: #### 5 7021-8 #### [facility] CLIA [id number] [address] [place] [address] [place] Monocytes/100 WBC (Bld) 3.8 % Normal [facility] Comment on above: Order Comment: Speci men Type: BLOOD SPECIMEN Ordering Facility: External Submitter Address: , , Performed By: #### 5 7021-8 #### [facility] CLIA [id number] [address] [place] [address] [place] Neutrophils (Bld) [#/Vol] 1.98 10*3/uL Normal 1.45-7.50 [facility] Comment on above: Order Comment: Speci men Type: BLOOD SPECIMEN Ordering Facility: External Submitter Address: , , Performed By: #### 5 7021-8 #### [facility] CLIA [id number] [address] [place] [address] [place] Neutrophils/100 WBC (Bld) 58.2 % Normal [facility] Comment on above: Order Comment: Speci men Type: BLOOD SPECIMEN Ordering Facility: External Submitter Address: , , Performed By: #### 5 7021-8 #### [facility] CLIA [id number] [address] [place] [address] [place] Nucleated RBC (Bld) [#/Vol] 10*3/uL Normal <0.01 [facility] Comment on above: Order Comment: Speci men Type: BLOOD SPECIMEN Ordering Facility: External Submitter Address: , , Performed By: #### 5 7021-8 #### [facility] CLIA [id number] [address] [place] [address] [place] Nucleated RBC/100 WBC (Bld) [Ratio] 0.0 /100 WBC Normal [facility] Comment on above: Order Comment: Speci men Type: BLOOD SPECIMEN Ordering Facility: External Submitter Address: , , Performed By: #### 5 7021-8 #### [facility] CLIA [id number] [address] [place] [address] [place] Platelet mean volume (Bld) [Entitic vol] 9.1 fL Normal 9.0-12.7 [facility] Comment on above: Order Comment: Speci men Type: BLOOD SPECIMEN Ordering Facility: External Submitter Address: , , Performed By: #### 5 7021-8 #### [facility] CLIA [id number] [address] [place] [address] [place] Platelets (Bld) [#/Vol] 166 10*3/uL Normal 150-400 [facility] Comment on above: Order Comment: Speci men Type: BLOOD SPECIMEN Ordering Facility: External Submitter Address: , , Performed By: #### 5 7021-8 #### [facility] CLIA [id number] [address] [place] [address] [place] Platelets Estimate (Bld) [#/Vol] Adequate Normal [facility] Comment on above: Order Comment: Speci men Type: BLOOD SPECIMEN Ordering Facility: External Submitter Address: , , Performed By: #### 5 7021-8 #### [facility] CLIA [id number] [address] [place] [address] [place] RBC (Bld) [#/Vol] 2.79 10*6/uL Low 4.20-6.00 [facility] Comment on above: Order Comment: Speci men Type: BLOOD SPECIMEN Ordering Facility: External Submitter Address: , , Performed By: #### 5 7021-8 #### [facility] CLIA [id number] [address] [place] [address] [place] RED CELL MORPH Reviewed: unremarkable Normal [facility] Comment on above: Order Comment: Speci men Type: BLOOD SPECIMEN Ordering Facility: External Submitter Address: , , Performed By: #### 5 7021-8 #### [facility] CLIA [id number] [address] [place] [address] [place] WBC (Bld) [#/Vol] 3.40 10*3/uL Low 3.70-11.00 [facility] Comment on above: Order Comment: Speci men Type: BLOOD SPECIMEN Ordering Facility: External Submitter Address: , , Performed By: #### 5 7021-8 #### [facility] CLIA [id number] [address] [place] [address] [place] Comprehensive metabolic 2000 panelon 07-31-2023 Albumin [Mass/Vol] 3.8 g/dL Low 3.9-4.9 [facility] Comment on above: Order Comment: Speci men Type: BLOOD SPECIMEN Ordering Facility: External Submitter Address: , , Performed By: #### 2 1243-8, 3023-7, 3016-3 #### [facility] CLIA [id number] [address] [place] [address] [place] ALP [Catalytic activity/Vol] 132 U/L High 38-113 [facility] Comment on above: Order Comment: Speci men Type: BLOOD SPECIMEN Ordering Facility: External Submitter Address: , , Performed By: #### 2 4323-8, 3023-7, 3015-3 #### [facility] CLIA [id number] [address] [place] [address] [place] ALT [Catalytic activity/Vol] 9 U/L Low 10-54 [facility] Comment on above: Order Comment: Speci men Type: BLOOD SPECIMEN Ordering Facility: External Submitter Address: , , Performed By: #### 2 4323-8, 3023-7, 3 #### [facility] CLIA [id number] [address] [place] [address] [place] Anion gap [Moles/Vol] 15 mmol/L Normal 9-18 [facility] Comment on above: Order Comment: Speci men Type: BLOOD SPECIMEN Ordering Facility: External Submitter Address: , , Performed By: #### 2 4323-8, 3023-7, 3 #### [facility] CLIA [id number] [address] [place] [address] [place] AST [Catalytic activity/Vol] 16 U/L Normal 14-40 [facility] Comment on above: Order Comment: Speci men Type: BLOOD SPECIMEN Ordering Facility: External Submitter Address: , , Performed By: #### 2 4323-8, 3023-7, 3 #### [facility] CLIA [id number] [address] [place] [id number] [place] Bilirubin [Mass/Vol] 0.4 mg/dL Normal 0.2-1.3 [facility] Comment on above: Order Comment: Speci men Type: BLOOD SPECIMEN Ordering Facility: External Submitter Address: , , Performed By: #### 2 4323-8, 3024-03, 3 #### [facility] CLIA [id number] [address] [address] [place] Calcium [Mass/Vol] 9.6 mg/dL Normal 8.5-10.2 [facility] Comment on above: Order Comment: Speci men Type: BLOOD SPECIMEN Ordering Facility: External Submitter Address: , , Performed By: #### 2 432-8, 3024-03, 3015-11 #### [facility] CLIA [id number] [address] [place] [id number] [place] Chloride [Moles/Vol] 99 mmol/L Normal 97-105 [facility] Comment on above: Order Comment: Speci men Type: BLOOD SPECIMEN Ordering Facility: External Submitter Address: , , Performed By: #### 2 432-8, 3024-03, 3015-11 #### [facility] CLIA [id number] [address] [place] [id number] [place] CO2 [Moles/Vol] 23 mmol/L Normal 22-30 [facility] Comment on above: Order Comment: Speci men Type: BLOOD SPECIMEN Ordering Facility: External Submitter Address: , , Performed By: #### 2 432-8, 3024-03, 3015-11 #### [facility] CLIA [id number] [address] [address] [place] Creatinine [Mass/Vol] 1.23 mg/dL High 0.73-1.22 [facility] Comment on above: Order Comment: Speci men Type: BLOOD SPECIMEN Ordering Facility: External Submitter Address: , , Performed By: #### 2 4323-8, 3024-03, 3015-11 #### [facility] CLIA [id number] [address] [id number] [address] [place] Creatinine and Glomerular filtration rate.predicted panel (S/P/Bld) 61 mL/min/1.73m??? Normal >=60 [facility] Comment on above: Order Comment: Gee vnag Type: BLOOD SPECIMEN Ordering Facility: External Submitter [...] By: #### 2 4323-8, 3024-7, 3016-3 #### [facility] CLIA [id number] [address] [place] [address] [place] Glucose [Mass/Vol] 139 mg/dL High 74-99 [facility] Comment on above: Order Comment: Gee vang Type: BLOOD SPECIMEN Ordering Facility: External Submitter Address: , , Result Comment: The [place] Diabetes Association (ADA) provides guidance for cutoff [...] Standards of Medical Care in Diabetes 2016, [place] [employer]. Diabetes Care. 2016.39(Suppl 1). Performed By: #### 2 4323-8, 3024-7, 3016-3 #### [facility] CLIA [id number] [address] [place] [address] [place] Potassium [Moles/Vol] 4.0 mmol/L Normal 3.7-5.1 [facility] Comment on above: Order Comment: Speci men Type: BLOOD SPECIMEN Ordering Facility: External Submitter Address: , , Performed By: #### 2 4323-8, 3024-03, 3 #### [facility] CLIA [id number] [address] [place] [address] [place] Protein [Mass/Vol] 7.7 g/dL Normal 6.3-8.0 [facility] Comment on above: Order Comment: Speci men Type: BLOOD SPECIMEN Ordering Facility: External Submitter Address: , , Performed By: #### 2 4323-8, 3024-03, 3015-11 #### [facility] CLIA [id number] [address] [place] [address] [place] Sodium [Moles/Vol] 137 mmol/L Normal 136-144 [facility] Comment on above: Order Comment: Speci men Type: BLOOD SPECIMEN Ordering Facility: External Submitter Address: , , Performed By: #### 2 4323-8, 3024-03, 3015-11 #### [facility] CLIA [id number] [address] [place] [address] [place] Urea nitrogen [Mass/Vol] 19 mg/dL Normal 9-24 [facility] Comment on above: Order Comment: Speci men Type: BLOOD SPECIMEN Ordering Facility: External Submitter Address: , , Performed By: #### 2 4323-8, 3024-03, 3015-11 #### [facility] CLIA [id number] [address] [place] [address] [place] T4 Free SerPl-mCncon -07-2 023 Free T4 [Mass/Vol] 1.1 ng/dL Normal 0.9-1.7 [facility] Comment on above: Order Comment: Speci men Type: BLOOD SPECIMEN Ordering Facility: External Submitter Address: , , Performed By: #### 2 4323-8, 3024-03, 3 #### [facility] CLIA [id number] [address] [place] [id number] [place] TSH SerPl-aCncon 07-31-2023 TSH Qn 4.190 m[IU]/L Normal 0.270-4.20 0 [facility] Comment on above: Order Comment: Speci men Type: BLOOD SPECIMEN Ordering Facility: External Submitter Address: , , Performed By: #### 2 2193-8, 1583-7, 8196-3 #### [facility] CLIA [id number] [address] [place] [id number] [facility] Ambulatory Visit Summaryon 1 Ambulatory [...] spironolactone (spironolactone 25 mg Tab) thyroid desiccated ([place] Thyroid) Procedures Performed Urethral dilatation (11/03/2022), TURP [...] months Where: [facility] [address] [place] [address]- Medications What How Much When Instructions Changed tolterodine (tolterodine 2 mg Cap-ER) 1 Capsules By Mouth Every day Pickup at [facility]/pharmacy #[id number] Unchanged APAP/ butalbital/ caffeine (APAP/ butalbital/ caffeine [...] if questions or concerns Unchanged thyroid desiccated ([place] Thyroid) By Mouth Every day Contact prescribing physician if questions or concerns Pharmacy Information [facility]/pharmacy #[id number]: [address], [place] [id number] [phone] Allergies No Known Allergies Problems Ongoing - Any problem that you are currently receiving treatment for. BPH without urinary obstruction Hesitancy Hypertension Incomplete bladder emptying Intertrigo mild NC (myocardial infarction) Nocturia Protein in urine Proteinuria [...] This condi (more content not included)... Normal [facility] Patient Educationon 07-09-20 Patient Education [...] Follow these instructions at home: ? Take brje-iys-tpyxlbe and prescription medicines only as told by [...] the medicine (more content not included)... Normal [facility] Urology Office/Clinic Noteon 07-09-2023 Urology [...] given today. Follow-up With When Contact Information Trung FERGUSON MD, URL In 4 months [facility] [address], [place] [address]- Additional Instructions: Patient Education Benign Prostatic Hyperplasia I, Valentine Fuentes , personally scribed for Dr. Ferguson on 07/09/2023 11:38:56. . Documentation recorded by the scribe, Valentine Fuentes, accurately reflects the services(s) I performed and decisions made by me. Problem List/Past Medical History Ongoing BPH without urinary obstruction Hesitancy Hypertension Incomplete bladder emptying Intertrigo mild NC (myocardial infarction) Nocturia Protein in urine Proteinuria Smoker Urethral meatal stenosis Urge incontinence Urinary incontinence without sensory awareness Urinary retention Historical No qualifying data Procedure/Surgical History Urethral dilatation (11/03/2022), TURP - Transurethral resection of prostate (08/31/2022), Cystoscopy (01/24/2022), Colonoscopy, Shoulder replacement. Medications APAP/butalbital/caffeine 325 mg-50 mg-40 mg Tab [place] Thyroid, Oral, Daily atorvastatin, Oral, Daily Butapap cat 40mg PRN [facility] B-12 1,000 MCG TABLET, 0 doxazosin 4 mg Tab Eliquis 5 mg oral tablet FLUoxet (more content not included)... Normal [facility] Comment on above: Result Comment: [...] Orders Anemia Complete Blood Count; Status:Active; Requested for:[id number]; Atrial fibrillation, currently in sinus rhythm, Frequent falls Cardiology - Valve and Structural Heart Program Referral Evaluation and Treatment Evaluate AND Treat Status: Hold For - Scheduling Requested for: [id number] SocHx: Former smoker Tobacco Use Screening; Status:Complete; Done: [id number] Patient Instructions Please bring all medicines, vitamins, [...] education given referral to Dr. Cobb for [facility]. patient to call back after review of [...] fibrillation, hypercoagulability related to atrial fibrillation, high [id number]-FLUp score, most recently seen February 2023 and [...] due to atrial fibrillation, on anticoagulation. 10. [id number] at least 5. Has bled score 2 insurance changed, now able to afford Eliquis. 11. Frequent falls, risk of injury due to fall. 12. New anemia, possibly related to extensive ecchymosis left arm after the fall. No GI bleeding reported Recommendations: 1.Extensive discussion about referral for Watchman device. Reluctantly patient and are in agreement. 2. Referral to Dr. Filby for Watchman device was initiated 3. Titrate [...] cuff rep (more content not included)... Normal [facility] Tobacco Screening.on 023 Fall risk assessment b) One or more fall s in the last year -[facility]-Sandu jaun 250 DO Work Phone: Tobacco use status [facility] b) No -[facility] jaun 250 DO Work Phone: Tobacco Screening. Yes [facility]-Sandu jaun 250 DO Work Phone: Patient [...] provider. Document Revised: 01/19/2022 Document Reviewed: 01/19/2022 [employer] Patient Education ? 2022 [employer]. Normal [facility] Urology Office/Clinic Noteon 04-03-2023 Urology [...] Contact Information RITESH ALTAMIRANO, CHARLOTTE Meneses, URL [address] [place] [address] Additional Instructions: keep appt w/ Patient Education Kegel Exercises Documentation recorded by the scribe Valentine Fuentes accurately reflects the services(s) I performed and decisions made by me. Authenticated by Charlotte Baker PA-C on 04/03/2023 09:50:52. I, Valentine Fuentes, personally scribed for Charlotte Baker PA-C on 04/03/2023 09:31:40. . Problem List/Past Medical History Ongoing BPH without urinary obstruction Hesitancy Hypertension Incomplete bladder emptying Intertrigo mild NC (myocardial infarction) Nocturia Protein in urine Proteinuria Smoker Urethral meatal stenosis Urge incontinence Urinary incontinence without sensory awareness Urinary retention Historical No qualifying data Procedure/Surgical History Urethral dilatation (11/03/2022), TURP - Transurethral resection of prostate (08/31/2022), Cystoscopy (01/24/2022), Colonoscopy, Shoulder replacement. Medications amLODIPine 5 mg Tab [place] Thyroid, Oral, Daily aspirin 81 mg oral [...] vaccine 07/12/ (more content not included)... Normal [facility] Comment on above: Result Comment: Elec tronically Signed By: RITESH [place] ALTAMIRANO.gabino\Date and Time Signed: 04/03/23 09:51 EDT\.br\Electronically Co-Signed By: Valentine Fuentes.gabino\Date and Time Co-Signed: 04/03/23 09:31 EDT Office [...] ischemic attack) Complete Blood Count; Status:Active; Requested for:[id number]; Comprehensive Metabolic Panel; Status:Active; Requested for:26Feb2023; Lipid Panel; Status:Active; Requested for:26Feb2023; T4 - Free Thyroxine, Serum; Status:Active; Requested for:48Srq3108; TSH - Thyroid Stimulating Hormone, Serum; Status:Active; [...] Once daily Device check as directed per [facility] protocol Chief Complaint NEIL WILCOX [...] due to atrial fibrillation, on anticoagulation. 10. [id number] at least 5. Has bled score 2 insurance changed, now able to afford [employer]. 1 Recommendations: 1. Decrease metoprolol succinate to [...] losartan in (more content not included)... Normal [employer] Tobacco Screening.on 023 Fall risk assessment b) One or more fall s in the last year [facility] DO Work Phone: Tobacco use status [facility] b) No [facility] [employer] 250 DO Work Phone: Patient Educationon 01-24-20 [...] conditioner or fan, if available. ? Apply xluk-lhh-fggglzh and prescription medicines only as told by [...] well after activity or exercise. Use a math and sciences department chair on a cool setting to [...] your skin and with medicines. ? Apply naty-nzv-isleztg and prescription medicines only as told by your health care provider. ? Keep all follow-up visits as told by your health care provider. This is important. This information is not intended to replace advice given to you by your health care provider. Make sure you discuss any questions you have with your health care provider. Document Revised: 06/26/2022 Document Reviewed: 06/26/2022 [employer] Patient Education ? 2022 [employer]. Normal [facility] Urology Office/Clinic Noteon 01-23-2023 Urology [...] weeks. if no improvement contact office., [id number], 175, cm, 01/23/23 14:14:00 EDT, Height/Length Dosing, 81, kg, 01/23/23 14:14:00 EDT, Weight Dosing E&M of Est. Patient Low 20-29 Min 91225 Orders: Urnls Dip Stick Auto w/o Microscopy POC 85816 Follow-up No qualifying data available f/u [facility] 8 wks. keep previously scheduled f/u w [facility] this fall. Patient Education Intertrigo Problem List/Past Medical History Ongoing BPH without urinary obstruction Hesitancy Hypertension Incomplete bladder emptying mild NC (myocardial infarction) Nocturia Protein in urine Proteinuria Smoker Urethral meatal stenosis Urge incontinence Urinary incontinence without sensory awareness Urinary retention Historical No qualifying data Procedure/Surgical History Urethral dilatation (11/03/2022), TURP - Transurethral resection of prostate (08/31/2022), Cystoscopy (01/24/2022), Colonoscopy, Shoulder replacement. Medications amLODIPine 5 mg Tab [place] Thyroid, Oral, Daily aspirin 81 mg oral [...] Dipstick: 1+ (30 mg/dl) (01/23/23 14:11:00) Specific [place] Urine Dipstick: >=1.030 (01/23/23 14:11:00) Urine Appearance Urine Dipstick: Clear (01/23/23 14:11:00) Urine Color Urine Dipstick: Yellow (01/23/23 14:11:00) Urobilinogen Urine Dipstick: Normal 0.2-1 EU/dl (01/23/23 14:11:00) pH Urine Dipstick: 5.5 (01/23/23 14:11:00) Normal [facility] Comment on above: Result Comment: [...] Follow these instructions at home: ? Take unru-swy-xqbhlxu and prescription medicines only as told by [...] 10/06/2016 Document Revised: 04/23/2019 Document Reviewed: 04/23/2019 [employer] Patient Education ? 2019 [employer]. [facility]ll[facility] Urology Office/Clinic Noteon 01-01-2023 Urology [...] [address], [place] [address]- Additional Instructions: 6 mos with UA Patient Education Urethral Stricture I, Jessica Landrum, personally scribed for Dr. Ferguson on 01/01/2023 13:19:03. . Documentation recorded by the scribe, Jessica Landrum, accurately reflects the services(s) I performed and decisions made by me. Authenticated by Dr. Ferguson on 01/01/2023 13:24:19. Problem List/Past Medical History Ongoing BPH without urinary obstruction Hesitancy Hypertension Incomplete bladder emptying mild NC (myocardial infarction) Nocturia Protein in urine Proteinuria Smoker Urethral meatal stenosis Urge incontinence Urinary incontinence without sensory awareness Urinary retention Historical No qualifying data Procedure/Surgical History TURP - Transurethral resection of prostate (08/31/2022), Cystoscopy (01/24/2022), Colonoscopy, Shoulder replacement. Medications amLODIPine 5 mg Tab [place] Thyroid, Oral, Daily aspirin 81 mg oral [...] Ad26 vaccine (more content not included)... Normal [facility] Comment on above: Result Comment: [...] MG Oral TabletTAKE 1 TABLET AT BEDTIME. Vwzcefctov-AISC-Oxtfwbiv 50-325-40 MG Oral TabletTAKE 1 TABLET 3 [...] PM Social (more content not included)... Normal [facility] Tobacco Screening.on 023 Fall risk assessment a) No falls within the last year [facility] i[employer]culi 250 DO Work Phone: Tobacco use status [facility] b) No [facility] [employer] 250 DO Work Phone: Office Visit (Cardiology)on [...] the time of your visit. 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 Brxqpfnztk-KSBX-Zrmdqfkq 50-325-40 MG Oral TabletTAKE 1 TABLET 3 [...] Caffeine us (more content not included)... Normal [facility] Tobacco Screening.on 023 Adult depression screening assessment No [facility] [employer] 250 DO Work Phone: Fall risk assessment a) No falls within the last year [facility] [employer] 250 DO Work Phone: Tobacco use status [facility]PHS b) No [facility] [employer] 250 DO Work Phone: Office Visit (Cardiology)on [...] in adult Healthy Weight Tips; Status:Complete; Done: [id number] Some eating tips that can help you lose weight.; Status:Complete; Done: [id number] SocHx: Former smoker Tobacco Use Screening; Status:Complete; Done: [id number] Chief Complaint NEIL WILCOX is being seen for hypertension. Current Meds Medication NameInstruction amLODIPine Besylate 10 MG Oral TabletTAKE 1 TABLET DAILY. Atorvastatin Calcium 40 MG Oral TabletTAKE 1 TABLET AT BEDTIME. Syvvqynojd-NLXL-Jtrdsbqy 50-325-40 MG Oral TabletTAKE 1 TABLET 3 [...] as previously mentioned Vitals Vital Signs Recorded: [id number] 01:07PMRecorded: [id number] 01:00PM Systolic Iffms595, LUE Diastolic Lying84, LUE Systolic Squrmgk716, LUE Diastolic Rjipvde97, LUE Systolic Aottffqv855, LUE Diastolic Rtnbdkbj45, LUE Heart Rate62, L Radial Height5 ft 9 in Nragck651 lb BMI Gruftkcifg79.99 kg/m2 BSA Calculated1.96 Physical Exam GENERAL: Well [...] [facility] Covid-19 PCR (CVDTBH)on SARS-CoV-2 (COVID-19) RNA KEIOK+probe Ql (Unsp spec) Not detected Normal NOT DETECTED [facility] Comment on above: Result Comment: This test is not yet approved or cleared by the [place] FDA. When there are no FDA-approved or cleared tests available, and other criteria are met, FDA can make tests available under an emergency access mechanism called an Emergency Use Authorization (EUA). The EUA for this test is supported by the [employer] Car[employer] of Health and Human Service's (HHS's) declaration [...] By: #### T SH, LIPID, CMP #### [facility] [address] [place] [id number] Oscar Paulino Office Visit (Cardiology)on 08-28-2022 [...] TABLET DAILY Basic Metabolic Panel; Status:Active; Requested for:[id number]; Overweight with body mass index (BMI) of 25 to 25.9 in adult Start: Spironolactone 25 MG Oral Tablet; TAKE 1 TABLET DAILY Healthy Weight Tips; Status:Complete; Done: [id number] Some eating tips that can help you lose weight.; Status:Complete; Done: [id number] Paroxysmal atrial fibrillation with RVR Start: Eliquis [...] these medications, (more content not included)... Normal [facility] Tobacco Screening.on 022 Fall risk assessment b) One or more fall s in the last year [facility]-Sandu jaun 250 DO Work Phone: Tobacco use status [facility] b) No [facility]-iWeebou jaun 250 DO Work Phone: LIPID PROFILEon 08-25-2022 CHOL-HDL RATIO NORM SEE BELOW Normal [facility] Comment on above: Result Comment: 3.3 - 4.4 LOW RISK 4.4 - 7.1 AVERAGE RISK 7.1 - 11.0 MODERATE RISK >11.0 HIGH RISK Performed By: #### T SH, LIPID, CMP #### [facility] [address] [place] [address] Dr. Oscar Paulino Cholesterol [Mass/Vol] 121 mg/dL Normal <=200 [facility] Comment on above: Performed By: #### T SH, LIPID, CMP #### [facility] [address] [address] [address] Oscar Paulino Cholesterol in HDL [Mass/Vol] 42 mg/dL Normal 40-60 [facility] Comment on above: Performed By: #### T SH, LIPID, CMP #### [facility] [address] [place] [address] Dr. Oscar Paulino Cholesterol in LDL [Mass/Vol] 66.2 mg/dL Normal [facility] Comment on above: Performed By: #### T SH, LIPID, CMP #### [facility] [address] [address] [address] Oscar Paulino Cholesterol.total/Chol esterol in HDL [Mass ratio] 2.9 {ratio} Normal [facility] Comment on above: Performed By: #### T SH, LIPID, CMP #### [facility] [address] [address] [address] Oscar Paulino HDL NORMAL > or = 60 mg/dl - LO W CARDIOVASCULAR RISK <40 mg/dl - HIGH CARDIOVASCULAR RISK Normal [facility] Comment on above: Performed By: #### T SH, LIPID, CMP #### [facility] [address] [place] [address] Dr. Oscar Paulino LDL CALC NORMAL SEE BELOW Normal [facility] Comment on above: Result Comment: <100 mg/dl OPTIMAL 100 - 129 mg/dl NEAR OR ABOVE OPTIMAL 130 - 159 mg/dl BORDERLINE HIGH 160 - 189 mg/dl HIGH >190 mg/dl VERY HIGH Performed By: #### T SH, LIPID, CMP #### [facility] [address] [address] [address] Oscar Paulino Triglyceride [Mass/Vol] 64 mg/dL Normal <=150 [facility] Comment on above: Performed By: #### T SH, LIPID, CMP #### [facility] [address] [address] [address] Oscar Paulino VLDL CALC 12.8 mg/dL Normal [facility] Comment on above: Performed By: #### T MANJIT, LIPID, CMP #### [facility] [address] [place] [address] Dr. Oscar Paulino PROF 14(COMP METB)on 022 Albumin [Mass/Vol] 3.6 g/dL Normal 3.4-5.0 [facility] Comment on above: Performed By: #### T MANJIT, LIPID, CMP #### [facility] [address] [place] [address] Dr. Oscar Paulino Albumin/Globulin [Mass ratio] 0.8 {ratio} Normal [facility] Comment on above: Performed By: #### T MANJIT, LIPID, CMP #### [facility] [address] [address] [address] Oscar Paulino ALP [Catalytic activity/Vol] 92 U/L Normal 46-116 [facility] Comment on above: Performed By: #### T MANJIT, LIPID, CMP #### [facility] [address] [address] [address] Oscar Paulino ALT [Catalytic activity/Vol] 17 U/L Normal 16-63 [facility] Comment on above: Performed By: #### T SH, LIPID, CMP #### [facility] [address] [place] [address] Dr. Oscar Paulino Anion gap [Moles/Vol] 9.7 mmol/L Normal [facility] Comment on above: Performed By: #### T SH, LIPID, CMP #### [facility] [address] [place] [address] Dr. Oscar Paulino AST [Catalytic activity/Vol] 10 U/L Critically low 15-37 [facility] Comment on above: Performed By: #### T SH, LIPID, CMP #### [facility] [address] [place] [address] Dr. Oscar Paulino Bilirubin [Mass/Vol] 0.3 mg/dL Normal 0.2-1.0 [facility] Comment on above: Performed By: #### T SH, LIPID, CMP #### [facility] [address] [place] [address] Dr. Oscar Paulino Calcium [Mass/Vol] 9.4 mg/dL Normal 8.5-10.1 [facility] Comment on above: Performed By: #### T SH, LIPID, CMP #### [facility] [address] [place] [address] Dr. Oscar Paulino Chloride [Moles/Vol] 102 mmol/L Normal 98-107 [facility] Comment on above: Performed By: #### T SH, LIPID, CMP #### [facility] [address] [place] [address] Dr. Oscar Paulino CO2 [Moles/Vol] 29.1 mmol/L Normal 21.0-32.0 [facility] Comment on above: Performed By: #### T SH, LIPID, CMP #### [facility] [address] [place] [address] Dr. Oscar Paulino Creatinine [Mass/Vol] 1.08 mg/dL Normal 0.70-1.30 [facility] Comment on above: Performed By: #### T SH, LIPID, CMP #### [facility] [address] [place] [address] Dr. Oscar Paulino EGFR-AF URUGUAYAN >60 Normal >=60 [facility] Comment on above: Performed By: #### T SH, LIPID, CMP #### [facility] [address] [place] [address] Dr. Oscar Paulino EGFR-NON AF URUGUAYAN >60 Normal >=60 [facility] Comment on above: Performed By: #### T SH, LIPID, CMP #### [facility] [address] [place] [address] Dr. Oscar Paulino Globulin (S) [Mass/Vol] 4.3 g/dL Normal [facility] Comment on above: Performed By: #### T SH, LIPID, CMP #### [facility] [address] [place] [address] Dr. Oscar Paulino Glucose [Mass/Vol] 104 mg/dL Normal 74-106 [facility] Comment on above: Performed By: #### T SH, LIPID, CMP #### [facility] [address] [place] [address] Dr. Oscar Paulino Potassium [Moles/Vol] 3.8 mmol/L Normal 3.5-5.1 [facility] Comment on above: Performed By: #### T MANJIT, LIPID, CMP #### [facility] [address] [place] [address] Dr. Oscar Paulino Protein [Mass/Vol] 7.9 g/dL Normal 6.4-8.2 [facility] Comment on above: Performed By: #### T MANJIT, LIPID, CMP #### [facility] [address] [place] [address] Dr. Oscar Paulino Sodium [Moles/Vol] 137 mmol/L Normal 136-145 [facility] Comment on above: Performed By: #### T SH, LIPID, CMP #### [facility] [address] [place] [address] Dr. Oscar Paulino Urea nitrogen [Mass/Vol] 18.0 mg/dL Normal 7.0-18.0 [facility] Comment on above: Performed By: #### T SH, LIPID, CMP #### [facility] [address] [place] [address] Dr. Oscar Paulino Urea nitrogen/Creatinine [Mass ratio] 16.7 mg/mg Normal [facility] Comment on above: Performed By: #### T SH, LIPID, CMP #### [facility] [address] [place] [address] Dr. Oscar Elizabeth 08-25-2022 TSH 2.967 uIU/mL Normal 0.358-3.74 0 [facility] Comment on above: Performed By: #### T SH, LIPID, CMP #### [facility] [address] [place] [address] Dr. Oscar Paulino CBC AUTO DIFFon 08-22-2022 BASO # 0.0 103/ul Normal 0.0-0.1 [facility] Comment on above: Performed By: #### T SH, LIPID, CMP #### [facility] [address] [place] [address] Dr. Oscar Paulino Basophils/100 WBC (Bld) 0.3 % Normal 0.2-2.0 [facility] Comment on above: Performed By: #### T SH, LIPID, CMP #### [facility] [address] [place] [address] Dr. Oscar Paulino EO # 0.3 103/ul Normal 0.0-0.7 [facility] Comment on above: Performed By: #### T SH, LIPID, CMP #### [facility] [address] [place] [address] Dr. Oscar Paulino Eosinophils/100 WBC (Bld) 7.3 % Critically high 0.9-7.0 [facility] Comment on above: Performed By: #### T SH, LIPID, CMP #### [facility] [address] [place] [address] Dr. Oscar Paulino Erythrocyte distribution width (RBC) [Ratio] 11.9 % Normal 11.0-15.0 [facility] Comment on above: Performed By: #### T SH, LIPID, CMP #### [facility] [address] [place] [address] Dr. Oscar Paulino Hematocrit (Bld) [Volume fraction] 33.8 % Critically low 42.0-54.0 [facility] Comment on above: Performed By: #### T SH, LIPID, CMP #### [facility] [address] [place] [address] Dr. Oscar Paulino Hemoglobin (Bld) [Mass/Vol] 12.0 g/dL Critically low 14.0-18.0 [facility] Comment on above: Performed By: #### T SH, LIPID, CMP #### [facility] [address] [place] [address] Dr. Oscar Paulino IG # 0.01 10e3/ul Normal 0.00-0.03 [facility] Comment on above: Performed By: #### T SH, LIPID, CMP #### [facility] [address] [place] [address] Dr. Oscar Paulino IG % 0.3 % Normal 0.0-0.5 [facility] Comment on above: Performed By: #### T SH, LIPID, CMP #### [facility] [address] [place] [address] Dr. Oscar Paulino LYMPH # 1.4 103/ul Normal 1.2-3.8 [facility] Comment on above: Performed By: #### T SH, LIPID, CMP #### [facility] [address] [place] [address] Dr. Oscar Paulino Lymphocytes/100 WBC (Bld) 39.2 % Normal 20.5-60.0 [facility] Comment on above: Performed By: #### T SH, LIPID, CMP #### [facility] [address] [place] [address] Dr. Oscar Paulino MANUAL DIFF REQ NO Normal [facility] Comment on above: Performed By: #### T SH, LIPID, CMP #### [facility] [address] [place] [address] Dr. Oscar Paulino MCH (RBC) [Entitic mass] 36.4 pg Critically high 25.9-34.0 [facility] Comment on above: Performed By: #### T SH, LIPID, CMP #### [facility] [address] [place] [address] Dr. Oscar Paulino MCHC (RBC) [Mass/Vol] 35.5 g/dL Critically high 29.9-35.2 [facility] Comment on above: Performed By: #### T SH, LIPID, CMP #### [facility] [address] [place] [address] Dr. Oscar Paulino MCV (RBC) [Entitic vol] 102.4 fL Critically high 80.0-94.0 [facility] Comment on above: Performed By: #### T SH, LIPID, CMP #### [facility] [address] [place] [address] Dr. Oscar Paulino MONO # 0.2 103/ul Critically low 0.3-0.8 [facility] Comment on above: Performed By: #### T SH, LIPID, CMP #### [facility] [address] [place] [address] Dr. Oscar Paulino Monocytes/100 WBC (Bld) 6.8 % Normal 1.7-12.0 [facility] Comment on above: Performed By: #### T SH, LIPID, CMP #### [facility] [address] [place] [address] Dr. Oscar Paulino NEUT # 1.6 103/ul Normal 1.4-6.5 [facility] Comment on above: Performed By: #### T SH, LIPID, CMP #### [facility] [address] [place] [address] Dr. Oscar Paulino Neutrophils/100 WBC (Bld) 46.1 % Normal 43.0-75.0 [facility] Comment on above: Performed By: #### T SH, LIPID, CMP #### [facility] [address] [place] [address] Dr. Oscar Paulino Platelet mean volume (Bld) [Entitic vol] 8.5 fL Critically low 9.5-13.5 [facility] Comment on above: Performed By: #### T SH, LIPID, CMP #### [facility] [address] [place] [address] Dr. Oscar Paulino PLT 191 103/ul Normal 150-450 [facility] Comment on above: Performed By: #### T SH, LIPID, CMP #### [facility] [address] [place] [address] Dr. Oscar Paulino RBC 3.30 106/ul Critically low 4.70-6.10 [facility] Comment on above: Performed By: #### T SH, LIPID, CMP #### [facility] [address] [address] [address] Oscar Paulino WBC 3.6 103/ul Critically low 4.0-11.0 [facility] Comment on above: Performed By: #### T SH, LIPID, CMP #### [facility] [address] [address] [address] Oscar Paulino PROF CHEM 8 (BAS METB)on Anion gap [Moles/Vol] 11.0 mmol/L Normal [facility] Comment on above: Performed By: #### B MP #### [facility] [address] [address] [address] Oscar Paulino Calcium [Mass/Vol] 9.4 mg/dL Normal 8.5-10.1 [facility] Comment on above: Performed By: #### B MP #### [facility] [address] [place] [address] Dr. Oscar Paulino Chloride [Moles/Vol] 103 mmol/L Normal 98-107 [facility] Comment on above: Performed By: #### B MP #### [facility] [address] [address] [address] Oscar Paulino CO2 [Moles/Vol] 27.7 mmol/L Normal 21.0-32.0 [facility] Comment on above: Performed By: #### B MP #### [facility] [address] [place] [address] Dr. Oscar Paulino Creatinine [Mass/Vol] 1.07 mg/dL Normal 0.70-1.30 [facility] Comment on above: Performed By: #### B MP #### [facility] [address] [place] [address] Dr. Oscar Paulino EGFR-AF URUGUAYAN >60 Normal >=60 [facility] Comment on above: Performed By: #### B MP #### [facility] [address] [address] [address] Oscar Paulino EGFR-NON AF URUGUAYAN >60 Normal >=60 [facility] Comment on above: Performed By: #### B MP #### [facility] [address] [address] [address] Oscar Paulino Glucose [Mass/Vol] 99 mg/dL Normal 74-106 [facility] Comment on above: Performed By: #### B MP #### [facility] [address] [address] [address] Oscar Paulino Potassium [Moles/Vol] 3.7 mmol/L Normal 3.5-5.1 [facility] Comment on above: Performed By: #### B MP #### [facility] [address] [address] [address] Oscar Paulino Sodium [Moles/Vol] 138 mmol/L Normal 136-145 [facility] Comment on above: Performed By: #### B MP #### [facility] [address] [address] [address] Oscar Paulino Urea nitrogen [Mass/Vol] 20.0 mg/dL Critically high 7.0-18.0 [facility] Comment on above: Performed By: #### B MP #### [facility] [address] [place] [address] Dr. Oscar Paulino Urea nitrogen/Creatinine [Mass ratio] 18.7 mg/mg Normal [facility] Comment on above: Performed By: #### B MP #### [facility] [address] [place] [address] Dr. Oscar Paulino PROTIMEon 08-22-2022 INR Coag (PPP) [Relative time] 1.06 {INR} Normal [facility] Comment on above: Performed By: #### P T, PTT #### [facility] [address] [place] [address] Dr. Oscar Paulino INR GUIDELINES SEE BELOW Normal [facility] Comment on above: Result Comment: ELYSIA RED INR: 2.0 - 3.0 CONDITIONS NOT LISTED BELOW 2.5 - 3.5 FOR PROSTHETIC HEART VALVE REPLACEMENT 2.5 - 3.5 RECURRENT THROMBOSIS Performed By: #### P T, PTT #### [facility] [address] [place] [address] Dr. Oscar Paulino PT Coag (PPP) [Time] 11.4 s Normal 9.0-11.6 [facility] Comment on above: Performed By: #### P T, PTT #### [facility] [address] [place], [place] [address] Dr. Oscar Paulino PTTon 08-22-2022 aPTT Coag (Bld) [Time] 26.6 s Normal 22.3-36.2 Th [facility] Comment on above: Performed By: #### P T, PTT #### [facility] [id number] Oscar Paulino Covid-19 PCR (CVDTBH)on 06-25 SARS-CoV-2 (COVID-19) RNA KEIKO+probe Ql (Unsp spec) Not detected Normal NOT DETECTED [facility] Comment on above: Result Comment: This test is not yet approved or cleared by the [place] FDA. When there are no FDA-approved or cleared tests available, and other criteria are met, FDA can make tests available under an emergency access mechanism called an Emergency Use Authorization (EUA). The EUA for this test is supported by the [employer] of Health and Human Service's (HHS's) declaration [...] SARS-CoV-2. Performed By: #### C VDTBH #### [facility] [address] [place], [place] [address] Dr. Oscar Paulino Covid-19 PCR (CVDTBH)on SARS-CoV-2 (COVID-19) RNA KEIKO+probe Ql (Unsp spec) Not detected Normal NOT DETECTED [facility] Comment on above: Result Comment: This test is not yet approved or cleared by the [place] FDA. When there are no FDA-approved or cleared tests available, and other criteria are met, FDA can make tests available under an emergency access mechanism called an Emergency Use Authorization (EUA). The EUA for this test is supported by the Spool Carrier of Health and Human Service's (HHS's) declaration [...] SARS-CoV-2. Performed By: #### C VDTBH #### [facility] [address] [place] [address] Dr. Oscar Paulino CBC AUTO DIFFon 06-28-2022 BASO # 0.0 103/ul Normal 0.0-0.1 [facility] Comment on above: Performed By: #### T SH, LIPID, CMP #### [facility] [address] [place] [address] Dr. Oscar Paulino Basophils/100 WBC (Bld) 0.4 % Normal 0.2-2.0 [facility] Comment on above: Performed By: #### T SH, LIPID, CMP #### [facility] [address] [place] [address] Dr. Oscar Paulino EO # 0.2 103/ul Normal 0.0-0.7 [facility] Comment on above: Performed By: #### T SH, LIPID, CMP #### [facility] [address] [place] [address] Dr. Oscar Paulino Eosinophils/100 WBC (Bld) 7.5 % Critically high 0.9-7.0 [facility] Comment on above: Performed By: #### T SH, LIPID, CMP #### [facility] [address] [place] [address] Dr. Oscar Paulino Erythrocyte distribution width (RBC) [Ratio] 12.3 % Normal 11.0-15.0 [facility] Comment on above: Performed By: #### T SH, LIPID, CMP #### [facility] [address] [place] [address] Dr. Oscar Paulino Hematocrit (Bld) [Volume fraction] 34.0 % Critically low 42.0-54.0 [facility] Comment on above: Performed By: #### T SH, LIPID, CMP #### [facility] [address] [place] [address] Dr. Oscar Paulino Hemoglobin (Bld) [Mass/Vol] 11.6 g/dL Critically low 14.0-18.0 [facility] Comment on above: Performed By: #### T MANJIT LIPID, CMP #### [facility] [address] [place] [address] Dr. Oscar Paulino IG # 0.00 10e3/ul Normal 0.00-0.03 [facility] Comment on above: Performed By: #### T MANJIT LIPID, CMP #### [facility] [address] [place] [address] Dr. Oscar Paulino IG % 0.0 % Normal 0.0-0.5 [facility] Comment on above: Performed By: #### T MANJIT LIPID, CMP #### [facility] [address] [place] [address] Dr. Oscar Paulnio LYMPH # 1.0 103/ul Critically low 1.2-3.8 [facility] Comment on above: Performed By: #### T MANJIT LIPID, CMP #### [facility] [address] [place] [address] Dr. Oscar Paulino Lymphocytes/100 WBC (Bld) 40.1 % Normal 20.5-60.0 [facility] Comment on above: Performed By: #### T MANJIT, LIPID, CMP #### [facility] [address] [place] [address] Dr. Oscar Paulino MANUAL DIFF REQ NO Normal [facility] Comment on above: Performed By: #### T SH, LIPID, CMP #### [facility] [address] [place] [address] Dr. Oscar Paulino MCH (RBC) [Entitic mass] 35.7 pg Critically high 25.9-34.0 [facility] Comment on above: Performed By: #### T SH, LIPID, CMP #### [facility] [address] [place] [address] Dr. Oscar Paulino MCHC (RBC) [Mass/Vol] 34.1 g/dL Normal 29.9-35.2 [facility] Comment on above: Performed By: #### T SH, LIPID, CMP #### [facility] [address] [place] [address] Dr. Oscar Paulino MCV (RBC) [Entitic vol] 104.6 fL Critically high 80.0-94.0 [facility] Comment on above: Performed By: #### T SH, LIPID, CMP #### [facility] [address] [place] [address] Dr. Oscar Paulino MONO # 0.2 103/ul Critically low 0.3-0.8 [facility] Comment on above: Performed By: #### T SH, LIPID, CMP #### [facility] [address] [place] [address] Dr. Oscar Paulino Monocytes/100 WBC (Bld) 6.7 % Normal 1.7-12.0 [facility] Comment on above: Performed By: #### T SH, LIPID, CMP #### [facility] [address] [place] [address] Dr. Oscar Paulino NEUT # 1.1 103/ul Critically low 1.4-6.5 [facility] Comment on above: Performed By: #### T SH, LIPID, CMP #### [facility] [address] [place] [address] Dr. Oscar Paulino Neutrophils/100 WBC (Bld) 45.3 % Normal 43.0-75.0 [facility] Comment on above: Performed By: #### T SH, LIPID, CMP #### [facility] [address] [place] [address] Dr. Oscar Paulino Platelet mean volume (Bld) [Entitic vol] 8.4 fL Critically low 9.5-13.5 [facility] Comment on above: Performed By: #### T SH, LIPID, CMP #### [facility] [address] [address] [address] Oscar Paulino PLT 164 103/ul Normal 150-450 [facility] Comment on above: Performed By: #### T SH, LIPID, CMP #### [facility] [address] [address] [address] Oscar Paulino RBC 3.25 106/ul Critically low 4.70-6.10 [facility] Comment on above: Performed By: #### T SH, LIPID, CMP #### [facility] [address] [address] [address] Oscar Paulino WBC 2.5 103/ul Critically low 4.0-11.0 [facility] Comment on above: Performed By: #### T SH, LIPID, CMP #### [facility] [address] [place] [address] Dr. Oscar Paulino PROF CHEM 8 (BAS METB)on Anion gap [Moles/Vol] 9.9 mmol/L Normal [facility] Comment on above: Performed By: #### B MP #### [facility] [address] [place] [address] Dr. Oscar Paulino Calcium [Mass/Vol] 9.4 mg/dL Normal 8.5-10.1 [facility] Comment on above: Performed By: #### B MP #### [facility] [address] [place] [address] Dr. Oscar Paulino Chloride [Moles/Vol] 105 mmol/L Normal 98-107 [facility] Comment on above: Performed By: #### B MP #### [facility] [facility] [address] [address] [address] Oscar Paulino CO2 [Moles/Vol] 27.3 mmol/L Normal 21.0-32.0 [facility] Comment on above: Performed By: #### B MP #### [facility] [address] [place] [address] Dr. Oscar Paulino Creatinine [Mass/Vol] 1.05 mg/dL Normal 0.70-1.30 [facility] Comment on above: Performed By: #### B MP #### [facility] [address] [address] [address] Oscar Paulino EGFR-AF URUGUAYAN >60 Normal >=60 [facility] Comment on above: Performed By: #### B MP #### [facility] [address] [address] [address] Oscar Paulino EGFR-NON AF URUGUAYAN >60 Normal >=60 [facility] Comment on above: Performed By: #### B MP #### [facility] [address] [address] [address] Oscar Paulino Glucose [Mass/Vol] 105 mg/dL Normal 74-106 [facility] Comment on above: Performed By: #### B MP #### [facility] [address] [address] [address] Oscar Paulino Potassium [Moles/Vol] 4.2 mmol/L Normal 3.5-5.1 [facility] Comment on above: Performed By: #### B MP #### [facility] [address] [address] [address] Oscar Paulino Sodium [Moles/Vol] 138 mmol/L Normal 136-145 [facility] Comment on above: Performed By: #### B MP #### [facility] [address] [address] [address] Oscar Paulino Urea nitrogen [Mass/Vol] 15.0 mg/dL Normal 7.0-18.0 [facility] Comment on above: Performed By: #### B MP #### [facility] [address] [place] [address] Dr. Oscar Paulino Urea nitrogen/Creatinine [Mass ratio] 14.3 mg/mg Normal [facility] Comment on above: Performed By: #### B MP #### [facility] [address] [place] [address] Dr. Oscar Paulino PROTIMEon 06-28-2022 INR Coag (PPP) [Relative time] 1.03 {INR} Normal [facility] Comment on above: Performed By: #### T SH, LIPID, CMP #### [facility] [address] [address] [address] Oscar Paulino INR GUIDELINES SEE BELOW Normal [facility] Comment on above: Result Comment: ELYSIA RED INR: 2.0 - 3.0 CONDITIONS NOT LISTED BELOW 2.5 - 3.5 FOR PROSTHETIC HEART VALVE REPLACEMENT 2.5 - 3.5 RECURRENT THROMBOSIS Performed By: #### T SH, LIPID, CMP #### [facility] [address] [address] [address] Oscar Paulino PT Coag (PPP) [Time] 11.1 s Normal 9.0-11.6 [facility] Comment on above: Performed By: #### T SH LIPID, CMP #### [facility] [address] [place] [address] Dr. Oscar Paulino PTTon 06-28-2022 aPTT Coag (Bld) [Time] 26.2 s Normal 22.3-36.2 [facility] Comment on above: Performed By: #### T MANJIT LIPID, CMP #### [facility] [address] [place] [address] Dr. Oscar Paulino Tobacco Screening.on 022 Adult depression screening assessment Yes [facility] [address] DO Work Phone: Adult depression screening assessment No [facility] [address] DO Work Phone: [phone] Fall risk assessment a) No falls within the last year [facility] 250 DO Work Phone: Tobacco use status CP b) No [facility]un 250 DO Work Phone: Tobacco Screening. 1-Several days [facility] jaun 250 DO Work Phone: Tobacco Screening. 0-Not at all [facility] 250 DO Work Phone: Tobacco Screening. 2-More than half the days [facility] 250 DO Work Phone: Tobacco Screening. Somewhat Difficult [facility] 250 DO Work [...] by: EBONI PETE Date: 2022-04-08 00:27 Normal [facility] CARDIAC STRESS/REST INJE CTIONon 10-03-2021 [facility] CARDIAC STRESS/REST INJECTION Patient Name: NEIL WILCOX STUDY: MYOCARDIAL PERFUSION STRESS TEST WITH LEXISCAN Performing facility: [facility], [address] [place] [address], [address], [place] [address] [facility] Provider: Loulou Arreguin RN, ANDROID PROGRAMMER PCP: Dr. Paul Cooney Supervising provider: Erick Wise DO, [facility] INDICATION: HTN Fatigue HISTORY: Gender: M; Age: 75 y/o ; Height: 0 cm; Weight: 0 kg. High Cholesterol; HTN; Fatigue; TIA Vertigo Denies smoking. COMPARISON: No comparison. ACCESSION NUMBER(S): [id number]; [id number]; [id number] ORDERING CLINICIAN: LOULOU ARREGUIN TECHNIQUE: ONE DAY [...] Electronically signed by: MATTI MIDDLETON MD Normal [facility] Falls Risk Screeningon 08-31 Fall risk assessment a) No falls within the last year [facility] 250 DO Work Phone: Tobacco use status CPHS b) No [facility] [employer]-i[employer] jaun 250 DO Work Phone: Tobacco Screening.on Fall risk assessment a) No falls within the last year [facility] 250 DO Work Phone: Tobacco use status CPHS b) No [facility] 250 DO Work Phone: BASIC METABOLIC PANELon 03-24 Anion gap [Moles/Vol] 9 mmol/L Normal 0-19 [facility] Calcium [Mass/Vol] 8.9 mg/dL Normal 8.5-10.4 [facility] Comment on above: Result Comment: RESU LT CHECKED Chloride [Moles/Vol] 104 mmol/L Normal 97-107 [facility] CO2 [Moles/Vol] 24 mmol/L Normal 24-31 [facility] Creatinine [Mass/Vol] 0.9 mg/dL Normal 0.4-1.6 [facility] ESTIMATED GFR 88 mL/min/1.73 m2 Normal [facility] Comment on above: Result Comment: GFR ml/min/1.73m2 Stage ----- 90 1 60-89 2 30-59 3 15-29 4 <15 5 For -Americans, multiply EGFR result by 1.210 Calculation not validated for patients under 18 years of age. Performed at [facility] [address] [facility] [address] Glucose [Mass/Vol] 134 mg/dL High 65-99 [facility] Potassium [Moles/Vol] 3.9 mmol/L Normal 3.4-5.1 [facility] Sodium [Moles/Vol] 137 mmol/L Normal 133-145 [facility] Urea nitrogen [Mass/Vol] 13 mg/dL Normal 8-25 [facility] Urea nitrogen/Creatinine [Mass ratio] 14.4 mg/mg Normal 8-21 [facility] CBC with Diffon 04-06-2021 AB IMMATURE NEUT 0.00 K/UL Normal 0.0-0.1 [facility] ABS BASO 0.00 K/UL Normal 0.00-0.22 [facility] ABS EOS 0.02 K/UL Normal 0-0.45 [facility] ABS NEUTROPHILS 3.73 K/UL Normal 1.8-7.7 [facility] ABS.NEUT.CALCULATED 3.73 K/UL Normal [facility] Comment on above: Result Comment: Perf ormed at [facility] [address] [facility] [address] Basophils/100 WBC (Bld) 0.00 % Normal 0-1 [facility] DIFF TYPE AUTO DIFF Normal [facility] Eosinophils/100 WBC (Bld) 0.40 % Normal 0-3 [facility] Erythrocyte distribution width (RBC) [Ratio] 11.6 % Low 11.7-15.0 [facility] Hematocrit (Bld) [Volume fraction] 29.6 % Low 41-50 [facility] Hemoglobin (Bld) [Mass/Vol] 10.0 g/dL Low 13.5-16.5 [facility] Lymphocytes (Bld) [#/Vol] 0.97 10*3/uL Low 1.2-3.2 [facility] Lymphocytes/100 WBC (Bld) 19.10 % Low 20-40 [facility] MCH (RBC) [Entitic mass] 35.5 pg High 26-34 [facility] MCHC 33.8 % Normal 31-37 [facility] MCV (RBC) [Entitic vol] 105.0 fL High 80-100 [facility] MEAN PLT VOL 8.4 CU Normal 7.0-12.6 [facility] Monocytes (Bld) [#/Vol] 0.35 10*3/uL Normal 0-0.8 [facility] Monocytes/100 WBC (Bld) 6.90 % Normal 0-8 [facility] Neutrophils/100 WBC (Bld) 0.00 % Normal 0.0-1.0 [facility] Neutrophils/100 WBC (Bld) 73.60 % High 50-70 [facility] Platelets (Bld) [#/Vol] 115 10*3/uL Low 150-450 [facility] RBC (Bld) [#/Vol] 2.82 10*6/uL Low 4.5-5.5 [facility] RDW-SD 44.8 FL Normal 37.0-54.0 [facility] WBC (Bld) [#/Vol] 5.1 10*3/uL Normal 4.5-11.0 [facility] PROTHROMBIN TIMEon 1 ANTICOAGULANT INFORMATION NOT REPO RTED TO LABORATORY Normal [facility] INR Coag (PPP) [Relative time] 1.0 {INR} Normal 0.86-1.16 [facility] Comment on above: Result Comment: INR Theraputic Range: 2.0-3.5 Performed at [address] [address] PT Coag (PPP) [Time] 11.3 s Normal 9.3-12.7 [facility] PTTon 04-06-2021 aPTT Coag (Bld) [Time] 21.9 s Low 22.0-32.5 [facility] Comment on above: Result Comment: Perf ormed at [address] [address] CBC with Diffon 04-01-2021 AB IMMATURE NEUT 0.00 K/UL Normal 0.0-0.1 [facility] ABS BASO 0.02 K/UL Normal 0.00-0.22 [facility] ABS EOS 0.19 K/UL Normal 0-0.45 [facility] ABS NEUTROPHILS 1.56 K/UL Low 1.8-7.7 [facility] ABS.NEUT.CALCULATED 1.56 K/UL Normal [facility] Comment on above: Result Comment: Perf ormed at [address] [address] Basophils/100 WBC (Bld) 0.60 % Normal 0-1 [facility] DIFF TYPE AUTO DIFF Normal [facility] Eosinophils/100 WBC (Bld) 5.30 % High 0-3 [facility] Erythrocyte distribution width (RBC) [Ratio] 11.6 % Low 11.7-15.0 [facility] Hematocrit (Bld) [Volume fraction] 40.9 % Low 41-50 [facility] Hemoglobin (Bld) [Mass/Vol] 13.4 g/dL Low 13.5-16.5 [facility] Lymphocytes (Bld) [#/Vol] 1.44 10*3/uL Normal 1.2-3.2 [facility] Lymphocytes/100 WBC (Bld) 40.30 % High 20-40 [facility] MCH (RBC) [Entitic mass] 35.2 pg High 26-34 [facility] MCHC 32.8 % Normal 31-37 [facility] MCV (RBC) [Entitic vol] 107.3 fL High 80-100 [facility] MEAN PLT VOL 8.5 CU Normal 7.0-12.6 [facility] Monocytes (Bld) [#/Vol] 0.36 10*3/uL Normal 0-0.8 [facility] Monocytes/100 WBC (Bld) 10.10 % High 0-8 [facility] Neutrophils/100 WBC (Bld) 0.00 % Normal 0.0-1.0 [facility] Neutrophils/100 WBC (Bld) 43.70 % Low 50-70 [facility] Platelets (Bld) [#/Vol] 149 10*3/uL Low 150-450 [facility] RBC (Bld) [#/Vol] 3.81 10*6/uL Low 4.5-5.5 [facility] RDW-SD 46.3 FL Normal 37.0-54.0 [facility] WBC (Bld) [#/Vol] 3.6 10*3/uL Low 4.5-11.0 [facility] COMPREHENSIVE METABOLIC PANE Melvin 04-01-2021 Albumin [Mass/Vol] 4.1 g/dL Normal 3.5-5.0 [facility] Albumin/Globulin [Mass ratio] 1.2 {ratio} Low 1.5-3.0 [facility] ALP [Catalytic activity/Vol] 77 U/L Normal 35-125 [facility] ALT [Catalytic activity/Vol] 16 U/L Normal 5-40 [facility] Anion gap [Moles/Vol] 10 mmol/L Normal 0-19 [facility] AST [Catalytic activity/Vol] 18 U/L Normal 5-40 [facility] Bilirubin [Mass/Vol] 0.3 mg/dL Normal 0.1-1.2 [facility] Calcium [Mass/Vol] 10.0 mg/dL Normal 8.5-10.4 [facility] Chloride [Moles/Vol] 104 mmol/L Normal 97-107 [facility] CO2 [Moles/Vol] 27 mmol/L Normal 24-31 [facility] Creatinine [Mass/Vol] 0.9 mg/dL Normal 0.4-1.6 [facility] ESTIMATED GFR 88 mL/min/1.73 m2 Normal [facility] Comment on above: Result Comment: GFR ml/min/1.73m2 Stage ----- 90 1 60-89 2 30-59 3 15-29 4 <15 5 For -Americans, multiply EGFR result by 1.210 Calculation not validated for patients under 18 years of age. Performed at [address] [address] Globulin (S) [Mass/Vol] 3.3 g/dL Normal 1.9-3.7 [facility] Glucose [Mass/Vol] 95 mg/dL Normal 65-99 [facility] Potassium [Moles/Vol] 4.3 mmol/L Normal 3.4-5.1 [facility] Protein [Mass/Vol] 7.4 g/dL Normal 5.9-7.9 [facility] Sodium [Moles/Vol] 141 mmol/L Normal 133-145 [facility] Urea nitrogen [Mass/Vol] 16 mg/dL Normal 8-25 [facility] Urea nitrogen/Creatinine [Mass ratio] 17.8 mg/mg Normal 8-21 [facility] SARS-CoV-2,INFLUENZA A/B NUC LEIC ACID TESTon 04-01-2021 EUA DISCLAIMER Normal [facility] Comment on above: Result Comment: This [...] is terminated or revoked sooner. Performed at [address] [address] FLU A by PCR Negative Normal [facility] FLU B by PCR Negative [facility] SARS-CoV-2 (COVID-19) RNA KEIKO+probe Ql (Unsp spec) Negative Normal NEG [facility] TYPE AND SCREENon 04-01-2021 TYPE AND SCREEN BLOOD COMPONENT TYPE - RED CELL GROUP Performed at [address] [address] UNITS ORDERED - 0 Performed at [address] [address] SPECIMEN EXPIRATION - 04/08/2021 Performed at [address] [address] ABO/RH(D) - A POSITIVE Performed at [address] [address] ANTIBODY SCREEN - NEGATIVE Performed at [address] [address] ARM BAND NUMBER - [id number] Performed at [address] [address] SURGERY DATE - [id number] Performed at [address] [address] TEST ORDERED - TYPE AND SCREEN Performed at [address] [address] PT TRANSFUSION HISTORY - BLOOD BANK RECORD SEARCH COMPLETED NO PREVIOUS RECORD NO PREVIOUS TRANSFUSIONS IN LIFETIME Performed at [address] [address] Normal [facility] Comment on above: Performed By: #### [facility] #### Main Laboratory [address] [address] UA-REFLEX TO CULTUREon 04-01 Bacteria identified Cx Nom (U) CULTURE NOT INDICATED Normal [facility] Comment on above: Result Comment: CULT URE NOT INDICATED Performed at [address] [address] BILI Negative Normal NEG [facility] Clarity (U) CLEAR Normal [facility] Color (U) YELLOW Normal [facility] GLUC Negative Normal NEG [facility] Hemoglobin Ql (U) Negative Normal NEG [facility] KET Negative Normal NEG [facility] LEUK Negative Normal NEG [facility] NIT Negative Normal NEG [facility] pH (U) 6.5 [pH] Normal 4.6-8.0 [facility] PROT TRACE Abnormal NEG [facility] RBC NONE SEEN Normal 0-3 [facility] SP GRAV,URINE 1.025 Normal 1.005-1.03 0 [facility] Urinalysis dipstick W Reflex Microscopic panel (U) MANUAL MICROSCOPIC URINES Normal [facility] URO 0.2 MG/DL Normal 0-1.0 [facility] WBC NONE SEEN Normal 0-3 [facility] OTHER Normal [facility] Comment on above: Result Comment: MUCO US Performed at [address] [address] Basophils Auto (Bld) [#/Vol] on 02-07-2021 Basophils (Bld) [#/Vol] 0.0 10*3/uL 0.0-0.2 [facility] Basophils/100 WBC Auto (Bld) on 02-07-2021 Basophils/100 WBC (Bld) 0.2 % [facility] Blood hemoglobin measurement (mass/volume)on 02-07-2021 Hemoglobin (Bld) [Mass/Vol] 12.8 g/dL 13.0-17.0 [facility] Blood leukocytes automated c ount (number/volume)on 02-07-2021 WBC (Bld) [#/Vol] 3.5 10*3/uL 4.5-11.0 [facility] Body fluid albumin measureme nt (mass/volume)on 02-07-2021 Albumin (Body fld) [Mass/Vol] 3.7 g/dL 3.2-5.5 [facility] Cholesterol [Mass/volume] in Serum or Plasmaon 02-07-2021 Cholesterol [Mass/Vol] 127 mg/dL 140-200 [facility] Comment on above: Chol less than 200 m g/dl low riskChol 201-239 mg/dl borderline riskChol 240 mg/dl and greater high risk Cholesterol in LDL Calc [Mas s/Vol]on 02-07-2021 Cholesterol in LDL [Mass/Vol] 66 mg/dL 0-100 [facility] Comment on above: LDL ATP III CLASSIFI CATIONLDL less than 100 mg/dL OptimalLDL 100-129 mg/dL Near or above optimalLDL 130-159 mg/dL Borderline highLDL 160-189 mg/dL HighLDL greater than 189 mg/dL Very high Cholesterol in VLDL Calc [Ma ss/Vol]on 02-07-2021 Cholesterol in VLDL [Mass/Vol] 10 mg/dL [facility] Creatinine and Glomerular fi ltration rate.predicted panel (S/P/Bld)on 02-07-2021 Creatinine [Mass/Vol] 0.95 mg/dL 0.64-1.27 [facility] Eosinophils Auto (Bld) [#/Vo l]on 02-07-2021 Eosinophils (Bld) [#/Vol] 0.2 10*3/uL 0.0-0.45 [facility] Eosinophils/100 WBC Auto (Bl d)on 02-07-2021 Eosinophils/100 WBC (Bld) 5.2 % [facility] Erythrocyte distribution wid th Auto (RBC) [Ratio]on 02-07-2021 Erythrocyte distribution width (RBC) [Ratio] 13.0 % 12.0-14.8 [facility] Estimated glomerular filtrat ion rate (GFR) non- Americanon 02-07-2021 GFR/1.73 sq M.predicted among non-blacks MDRD (S/P/Bld) [Vol rate/Area] > 60 mL/Min [facility] Globulin Calc (S) [Mass/Vol] on 02-07-2021 Globulin (S) [Mass/Vol] 3.6 g/dL [facility] Hematocrit Auto (Bld) [Volum e fraction]on 02-07-2021 Hematocrit (Bld) [Volume fraction] 38.4 % 38.8-50.0 [facility] Laboratory - Hematology and Cell countson 02-07-2021 Nucleated RBC/100 WBC (Bld) [Ratio] 0.1 % 0-0.5 [facility] Lymphocytes Auto (Bld) [#/Vo l]on 02-07-2021 Lymphocytes (Bld) [#/Vol] 1.2 10*3/uL 1.00-4.8 [facility] Lymphocytes/100 WBC Auto (Bl d)on 02-07-2021 Lymphocytes/100 WBC (Bld) 33.5 % [facility] MCH Auto (RBC) [Entitic mass ]on 02-07-2021 MCH (RBC) [Entitic mass] 35.8 pg 27.5-35.2 [facility] MCHC Auto (RBC) [Mass/Vol]on 02-07-2021 MCHC (RBC) [Mass/Vol] 33.4 g/dL 32.5-35.6 [facility] MCV Auto (RBC) [Entitic vol] on 02-07-2021 MCV (RBC) [Entitic vol] 107.1 fL 83.5-101 [facility] Monocytes Auto (Bld) [#/Vol] on 02-07-2021 Monocytes (Bld) [#/Vol] 0.4 10*3/uL 0.0-0.8 [facility] Monocytes/100 WBC Auto (Bld) on 02-07-2021 Monocytes/100 WBC (Bld) 10.3 % [facility] Neutrophils Auto (Bld) [#/Vo l]on 02-07-2021 Neutrophils (Bld) [#/Vol] 1.8 10*3/uL 1.8-7.7 [facility] Neutrophils/100 WBC Auto (Bl d)on 02-07-2021 Neutrophils/100 WBC (Bld) 50.8 % [facility] No Panel Informationon 02-07 Estimated GFR () > 60 mL/Min [facility] Comment on above: GFR estimated refere nce range: According to KDOQI guidelines, <60 ml/min/1.73m2 is sufficient to diagnose a patient with chronic kidney disease. Pharmacy Creatinine Clearance (Chem N/A [facility] Platelet mean volume Auto (B ld) [Entitic vol]on 02-07-2021 Platelet mean volume (Bld) [Entitic vol] 6.7 fL 6.6-10.1 [facility] Platelets Auto (Bld) [#/Vol] on 02-07-2021 Platelets (Bld) [#/Vol] 220 10*3/uL 150-450 [facility] Protein [Mass/volume] in Ser um or Plasmaon 02-07-2021 Protein [Mass/Vol] 7.3 g/dL 6.1-7.9 [facility] RBC Auto (Bld) [#/Vol]on RBC (Bld) [#/Vol] 3.59 10*6/uL 3.90-5.60 [facility] Serum or plasma alanine huntley otransferase measurement without P-5'-P (enzymatic activion 02-07-2021 ALT No additional P-5'-P [Catalytic activity/Vol] 13 U/L 10-60 [facility] Serum or plasma albumin/glob ulin mass ratioon 02-07-2021 Albumin/Globulin [Mass ratio] 1.0 {ratio} [facility] Serum or plasma alkaline latoya sphatase measurement (enzymatic activity/volume)on 02-07-2021 ALP [Catalytic activity/Vol] 71 U/L 32-92 [facility] Serum or plasma aspartate am inotransferase measurement (enzymatic activity/volume)on 02-07-2021 AST [Catalytic activity/Vol] 13 U/L 10-42 [facility] Serum or plasma calcium ilana urement (mass/volume)on 02-07-2021 Calcium [Mass/Vol] 9.7 mg/dL 8.2-10.2 [facility] Serum or plasma chloride rishabh surement (moles/volume)on 02-07-2021 Chloride [Moles/Vol] 102 mmol/L 95-114 [facility] Serum or plasma glucose ilana urement (mass/volume)on 02-07-2021 Glucose [Mass/Vol] 95 mg/dL 70-100 [facility] Comment on above: ADA recommended refe rence rangeRandom Glucose Reference Range is dependent on time and content of last meal. Glucose of more than 200 mg/dL in a nonstressed, ambulatory subject supports the diagnosis of Diabetes Mellitus. Serum or plasma high density lipoprotein (HDL) cholesterol measurementon 02-07-2021 Cholesterol in HDL [Mass/Vol] 51 mg/dL 29-71 [facility] Comment on above: HDL CHOL ATP-III CLA SSIFICATION Cardiovascular RiskHDL > or equal to 60 mg/dL LOWHDL < 40 mg/dL HIGH Serum or plasma potassium me asurement (moles/volume)on 02-07-2021 Potassium [Moles/Vol] 4.5 mmol/L 3.5-5.1 [facility] Serum or plasma sodium measu rement (moles/volume)on 02-07-2021 Sodium [Moles/Vol] 137 mmol/L 136-146 [facility] Serum or plasma total biliru bin measurement (mass/volume)on 02-07-2021 Bilirubin [Mass/Vol] 0.6 mg/dL 0.3-1.2 [facility] Serum or plasma total carbon dioxide measurement (moles/volume)on 02-07-2021 CO2 [Moles/Vol] 24.7 mmol/L 22.0-30.0 [facility] Serum or plasma total choles terol/high density lipoprotein (HDL) cholesterol mass noni 02-07-2021 Cholesterol.total/Chol esterol in HDL [Mass ratio] 2.5 {ratio} [facility] Serum or plasma urea nitroge n measurement (mass/volume)on 02-07-2021 Urea nitrogen [Mass/Vol] 19 mg/dL 9-23 [facility] TSH DL <= 0.005 mIU/L Qnon 0 02-07-2021 TSH Qn 1.17 m[IU]/L 0.45-5.33 [facility] Thyroxine (T4) free [Mass/vo lume] in Serum or Plasmaon 02-07-2021 Free T4 [Mass/Vol] 0.88 ng/dL 0.61-1.12 [facility] Triglyceride [Mass/volume] i n Serum or Plasmaon 02-07-2021 Triglyceride [Mass/Vol] 52 mg/dL 35-149 [facility] Comment on above: TRIG ATP III CLASSIF ICATIONTRIG less than 150 mg/dL NormalTRIG 150-199 mg/dL Borderline highTRIG 200-500 mg/dL High TRIG greater than 500 mg/dL Very highStandard traceable to the Center for Disease Conrtrol and Prevention (CDC) test method. WOUND CULTURE-TISSUEon 12-22 WOUND CULTURE-TISSUE Specimen source XXX : SHOULDER RIGHT Performed at [place] [address] Service Cmnt XXX-Imp: HOLD FOR 2 WEEKS Microscopic observation: NO ORGANISMS SEEN 1+ WBC Bacteria identified: ANAEROBIC GRAM POSITIVE BACILLI ONE COLONY MOST CLOSELY RESEMBLING CUTIBACTERIUM (PROPIONIBACTERIUM) ACNES Performed at [facility],[address] [place] [address] : FINAL 12/22/2020 Normal [facility] Comment on above: Performed By: #### [facility] #### [facility] [place] [address] CBC with Diffon 12-17-2020 AB IMMATURE NEUT 0.00 K/UL Normal 0.0-0.1 [facility] ABS BASO 0.00 K/UL Normal 0.00-0.22 [facility] ABS EOS 0.00 K/UL Normal 0-0.45 [facility] ABS NEUTROPHILS 2.47 K/UL Normal 1.8-7.7 [facility] ABS.NEUT.CALCULATED 2.47 K/UL Normal [facility] Comment on above: Result Comment: Perf ormed at [place] [address] Basophils/100 WBC (Bld) 0.00 % Normal 0-1 [facility] DIFF TYPE AUTO DIFF Normal [facility] Eosinophils/100 WBC (Bld) 0.00 % Normal 0-3 [facility] Erythrocyte distribution width (RBC) [Ratio] 12.1 % Normal 11.7-15.0 [facility] Hematocrit (Bld) [Volume fraction] 30.6 % Low 41-50 [facility] Hemoglobin (Bld) [Mass/Vol] 10.4 g/dL Low 13.5-16.5 [facility] Lymphocytes (Bld) [#/Vol] 0.75 10*3/uL Low 1.2-3.2 [facility] Lymphocytes/100 WBC (Bld) 20.90 % Normal 20-40 [facility] MCH (RBC) [Entitic mass] 36.2 pg High 26-34 [facility] MCHC 34.0 % Normal 31-37 [facility] MCV (RBC) [Entitic vol] 106.6 fL High 80-100 [facility] MEAN PLT VOL 8.4 CU Normal 7.0-12.6 [facility] Monocytes (Bld) [#/Vol] 0.37 10*3/uL Normal 0-0.8 [facility] Monocytes/100 WBC (Bld) 10.30 % High 0-8 [facility] Neutrophils/100 WBC (Bld) 0.00 % Normal 0.0-1.0 [facility] Neutrophils/100 WBC (Bld) 68.80 % Normal 50-70 [facility] Platelets (Bld) [#/Vol] 122 10*3/uL Low 150-450 [facility] RBC (Bld) [#/Vol] 2.87 10*6/uL Low 4.5-5.5 [facility] RDW-SD 47.8 FL Normal 37.0-54.0 [facility] WBC (Bld) [#/Vol] 3.6 10*3/uL Low 4.5-11.0 [facility] COMPREHENSIVE METABOLIC PANE Melvin 12-17-2020 Albumin [Mass/Vol] 3.5 g/dL Normal 3.5-5.0 [facility] Albumin/Globulin [Mass ratio] 1.3 {ratio} Low 1.5-3.0 [facility] ALP [Catalytic activity/Vol] 63 U/L Normal 35-125 [facility] ALT [Catalytic activity/Vol] 10 U/L Normal 5-40 [facility] Comment on above: Result Comment: Perf ormed at [facility] [address] [facility] [address] Anion gap [Moles/Vol] 11 mmol/L Normal 0-19 [facility] AST [Catalytic activity/Vol] 15 U/L Normal 5-40 [facility] Bilirubin [Mass/Vol] 0.7 mg/dL Normal 0.1-1.2 [facility] Calcium [Mass/Vol] 9.0 mg/dL Normal 8.5-10.4 [facility] Chloride [Moles/Vol] 99 mmol/L Normal 97-107 [facility] CO2 [Moles/Vol] 26 mmol/L Normal 24-31 [facility] Creatinine [Mass/Vol] 0.9 mg/dL Normal 0.4-1.6 [facility] Globulin (S) [Mass/Vol] 2.7 g/dL Normal 1.9-3.7 [facility] Glucose [Mass/Vol] 129 mg/dL High 65-99 [facility] Potassium [Moles/Vol] 3.8 mmol/L Normal 3.4-5.1 [facility] Protein [Mass/Vol] 6.2 g/dL Normal 5.9-7.9 [facility] Sodium [Moles/Vol] 136 mmol/L Normal 133-145 [facility] Urea nitrogen [Mass/Vol] 13 mg/dL Normal 8-25 [facility] Urea nitrogen/Creatinine [Mass ratio] 14.4 mg/mg Normal 8-21 [facility] FREE T4on 12-09-2020 Free T4 [Mass/Vol] 1.2 ng/dL Normal 0.9-1.7 [facility] Comment on above: Result Comment: Perf ormed at [place] [id number] Performed By: #### [facility] #### [place] [address] CBC with Diffon 12-08-2020 AB IMMATURE NEUT 0.00 K/UL Normal 0.0-0.1 [facility] ABS BASO 0.01 K/UL Normal 0.00-0.22 [facility] ABS EOS 0.20 K/UL Normal 0-0.45 [facility] ABS NEUTROPHILS 1.38 K/UL Low 1.8-7.7 [facility] Comment on above: Result Comment: DARELL ECTED ON 12/08 AT 1254: PREVIOUSLY REPORTED 1.39 ABS.NEUT.CALCULATED 1.39 K/UL Normal [facility] Comment on above: Result Comment: Perf ormed at [facility] [address] [facility] [address] Basophils/100 WBC (Bld) 0.30 % Normal 0-1 [facility] DIFF TYPE AUTO DIFF Normal [facility] Eosinophils/100 WBC (Bld) 6.40 % High 0-3 [facility] Erythrocyte distribution width (RBC) [Ratio] 11.9 % Normal 11.7-15.0 [facility] Hematocrit (Bld) [Volume fraction] 40.0 % Low 41-50 [facility] Hemoglobin (Bld) [Mass/Vol] 13.5 g/dL Normal 13.5-16.5 [facility] Lymphocytes (Bld) [#/Vol] 1.20 10*3/uL Normal 1.2-3.2 [facility] Lymphocytes/100 WBC (Bld) 38.60 % Normal 20-40 [facility] MCH (RBC) [Entitic mass] 36.0 pg High 26-34 [facility] MCHC 33.8 % Normal 31-37 [facility] MCV (RBC) [Entitic vol] 106.7 fL High 80-100 [facility] MEAN PLT VOL 8.5 CU Normal 7.0-12.6 [facility] Monocytes (Bld) [#/Vol] 0.31 10*3/uL Normal 0-0.8 [facility] Monocytes/100 WBC (Bld) 10.00 % High 0-8 [facility] Neutrophils/100 WBC (Bld) 0.00 % Normal 0.0-1.0 [facility] Neutrophils/100 WBC (Bld) 44.70 % Low 50-70 [facility] PLATELET ESTIMATE ADEQUATE Normal [facility] Platelets (Bld) [#/Vol] 168 10*3/uL Normal 150-450 [facility] RBC (Bld) [#/Vol] 3.75 10*6/uL Low 4.5-5.5 [facility] RBC morphology finding Nom (Bld) CONSISTENT WITH PERIPHERAL SMEAR Normal [facility] RDW-SD 46.6 FL Normal 37.0-54.0 [facility] WBC (Bld) [#/Vol] 3.1 10*3/uL Low 4.5-11.0 [facility] WBC MORPHOLOGY SMEAR REVIEWED AND F OUND CONSISTENT WITH AUTOMATED DIFFERENTIAL Normal [facility] COMPREHENSIVE METABOLIC PANE Melvin 12-08-2020 Albumin [Mass/Vol] 4.2 g/dL Normal 3.5-5.0 [facility] Albumin/Globulin [Mass ratio] 1.3 {ratio} Low 1.5-3.0 [facility] ALP [Catalytic activity/Vol] 77 U/L Normal 35-125 [facility] ALT [Catalytic activity/Vol] 10 U/L Normal 5-40 [facility] Anion gap [Moles/Vol] 10 mmol/L Normal 0-19 [facility] AST [Catalytic activity/Vol] 16 U/L Normal 5-40 [facility] Bilirubin [Mass/Vol] 0.7 mg/dL Normal 0.1-1.2 [facility] Calcium [Mass/Vol] 9.6 mg/dL Normal 8.5-10.4 [facility] Chloride [Moles/Vol] 102 mmol/L Normal 97-107 [facility] CO2 [Moles/Vol] 28 mmol/L Normal 24-31 [facility] Creatinine [Mass/Vol] 1.1 mg/dL Normal 0.4-1.6 [facility] ESTIMATED GFR 70 mL/min/1.73 m2 Normal [facility] Comment on above: Result Comment: GFR ml/min/1.73m2 Stage ----- 90 1 60-89 2 30-59 3 15-29 4 <15 5 For -Americans, multiply EGFR result by 1.210 Calculation not validated for patients under 18 years of age. Performed at [facility] [address] [facility] [address] Globulin (S) [Mass/Vol] 3.2 g/dL Normal 1.9-3.7 [facility] Glucose [Mass/Vol] 94 mg/dL Normal 65-99 [facility] Potassium [Moles/Vol] 4.1 mmol/L Normal 3.4-5.1 [facility] Protein [Mass/Vol] 7.4 g/dL Normal 5.9-7.9 [facility] Sodium [Moles/Vol] 140 mmol/L Normal 133-145 [facility] Urea nitrogen [Mass/Vol] 15 mg/dL Normal 8-25 [facility] Urea nitrogen/Creatinine [Mass ratio] 13.6 mg/mg Normal 8-21 [facility] EKGon 12-08-2020 Electrocardiogram EKG Ventricular Rate : 51 BPM Atrial Rate : 51 BPM P-R Interval : 186 ms QRS Duration : 102 ms Q-T Interval : 432 ms QTC Calculation(Bazett) : 398 ms Calculated P [place] : 70 degrees Calculated R [place] : 44 degrees Calculated T [place] : 63 degrees Diagnosis:Sinus bradycardia with occasional Premature ventricular complexes Otherwise normal ECG No previous ECGs available Confirmed by XIN TONG DO ([id number]) on 12/10/2020 9:37:02 AM [facility] Electrocardiogram EKG Ventricular Rate : 57 BPM Atrial Rate : 57 BPM P-R Interval : 174 ms QRS Duration : 102 ms Q-T Interval : 430 ms QTC Calculation(Bazett) : 418 ms Calculated P [place] : 74 degrees Calculated R [place] : 56 degrees Calculated T [place] : 69 degrees Diagnosis:Sinus bradycardia with Premature atrial complexes and Premature ventricular complexes or Fusion complexes Otherwise normal ECG When compared with ECG of 08-DEC-2020 11:04, Premature atrial complexes are now Present Confirmed by XIN TONG DO ([id number]) on 12/10/2020 9:36:45 AM [facility] SARS-CoV-2,INFLUENZA A/B NUC LEIC ACID TESTon 12-08-[address] [facility] Comment on above: Result Comment: This test [...] is terminated or revoked sooner. Performed at [place] [id number] FLU A by PCR Negative [facility] FLU B by PCR Negative [facility] SARS-CoV-2 (COVID-19) RNA KEIKO+probe Ql (Unsp spec) Negative Normal NEG [facility] TSHon 12-08-2020 TSH 0.24 MIU/L Low 0.27-4.20 [facility] Comment on above: Result Comment: Perf ormed at [address] [address] Performed By: #### T [facility] ####Main Laboratory[address] [address] UA-REFLEX TO CULTUREon 12-08 Bacteria identified Cx Nom (U) CULTURE NOT INDICATED Normal [facility] Comment on above: Result Comment: CULT URE NOT INDICATED Performed at [place] [id number] BILI Negative Normal [facility] Clarity (U) CLEAR Normal [facility] Color (U) YELLOW Normal [facility] GLUC Negative Normal NEG [facility] Hemoglobin Ql (U) Negative Normal NEG [facility] KET Negative Normal NEG [facility] LEUK Negative Normal NEG [facility] NIT Negative Normal NEG [facility] pH (U) 6.0 [pH] Normal 4.6-8.0 [facility] PROT TRACE Abnormal NEG [facility] RBC OCC Normal 0-3 [facility] SP GRAV,URINE 1.025 Normal 1.005-1.03 0 [facility] Urinalysis dipstick W Reflex Microscopic panel (U) MANUAL MICROSCOPIC URINES Normal [facility] URO 0.2 MG/DL Normal 0-1.0 [facility] WBC OCC Normal 0-3 [facility] OTHER Normal [facility] Comment on above: Result Comment: PRES ENT MUCOUS Performed at [place] [id number] B12/Folate Panelon 1 Cobalamin (Vitamin B12) [Mass/Vol] 507 pg/mL Normal 232-1245 [facility] Comment on above: Performed By: #### F T4, B12FOL, TSHX #### [facility] [address] [place] [address] [id number] Conference Producer: Juan F Dominguez MD Folic Acid 10.6 ng/mL Normal >4.8 [facility] Comment on above: Performed By: #### F T4, B12FOL, TSHX #### [address] [id number] Conference Producer: Juan F Dominguez MD T4, Freeon 10-13-2020 Thyroxine, Free 0.97 ng/dL 0.93 - 1.7 ng/dL [place], [place] TSH w/reflex to FT4on 2020 TSH Qn 0.04 m[IU]/L Low 0.30-5.00 [facility] Comment on above: Performed By: #### F T4, B12FOL, TSHX #### [address] [id number] Conference Producer: Juan F Dominguez MD TSH with Reflexon 10-13-2020 Interpretation and review of laboratory results Abnormal [place] TSH Qn 0.04 m[IU]/L Low [place] Thyroxine, Freeon 10-13-2020 Thyroxine, Free 0.97 ng/dL Normal 0.93-1.70 [facility] Comment on above: Performed By: #### F T4, B12FOL, TSHX #### [address] [id number] Conference Producer: Juan F Dominguez MD Vitamin B12 & Folateon 10-13 Cobalamin (Vitamin B12) [Mass/Vol] 507 pg/mL 232 - 1245 pg/mL [place] Folate 10.6 ng/mL >4.8 [place], [place] C REACTIVE PROTEINon 021 C REACTIVE PROTEIN 0.3 MG/DL Normal 0-2.0 [facility] Comment on above: Result Comment: LESS THAN Performed at [address] [address] Performed By: #### C RP #### Main Laboratory [place] [id number] [place] [address] CBC with Diffon 10-11-2020 AB IMMATURE NEUT 0.00 K/UL Normal 0.0-0.1 [facility] ABS BASO 0.02 K/UL Normal 0.00-0.22 [facility] ABS EOS 0.21 K/UL Normal 0-0.45 [facility] ABS NEUTROPHILS 1.64 K/UL Low 1.8-7.7 [facility] ABS.NEUT.CALCULATED 1.64 K/UL Normal [facility] Comment on above: Result Comment: Perf ormed at [facility] [address] [facility] [address] Basophils/100 WBC (Bld) 0.50 % Normal 0-1 [facility] DIFF TYPE AUTO DIFF Normal [facility] Eosinophils/100 WBC (Bld) 5.10 % High 0-3 [facility] Erythrocyte distribution width (RBC) [Ratio] 11.3 % Low 11.7-15.0 [facility] Hematocrit (Bld) [Volume fraction] 39.6 % Low 41-50 [facility] Hemoglobin (Bld) [Mass/Vol] 13.6 g/dL Normal 13.5-16.5 [facility] Lymphocytes (Bld) [#/Vol] 1.74 10*3/uL Normal 1.2-3.2 [facility] Lymphocytes/100 WBC (Bld) 42.00 % High 20-40 [facility] MCH (RBC) [Entitic mass] 36.2 pg High 26-34 [facility] MCHC 34.3 % Normal 31-37 [facility] MCV (RBC) [Entitic vol] 105.3 fL High 80-100 [facility] MEAN PLT VOL 8.4 CU Normal 7.0-12.6 [facility] Monocytes (Bld) [#/Vol] 0.53 10*3/uL Normal 0-0.8 [facility] Monocytes/100 WBC (Bld) 12.80 % High 0-8 [facility] Neutrophils/100 WBC (Bld) 0.00 % Normal 0.0-1.0 [facility] Neutrophils/100 WBC (Bld) 39.60 % Low 50-70 [facility] Platelets (Bld) [#/Vol] 186 10*3/uL Normal 150-450 [facility] RBC (Bld) [#/Vol] 3.76 10*6/uL Low 4.5-5.5 [facility] RDW-SD 44.8 FL Normal 37.0-54.0 [facility] WBC (Bld) [#/Vol] 4.1 10*3/uL Low 4.5-11.0 [facility] SEDIMENTATION RATEon 021 SEDIMENTATION RATE 50 MM/HR High 0-12 [facility] Comment on above: Result Comment: Perf ormed at [facility] [address] [facility] [address] Automated basophil %on 10-07 Basophils/100 WBC (Bld) 0.2 % [facility] Automated basophil counton 0 2020 Basophils (Bld) [#/Vol] 0.0 10*3/uL 0.0-0.2 [facility] Automated blood lymphocyte c ount (number/volume)on 2020 Lymphocytes (Bld) [#/Vol] 1.2 10*3/uL 1.00-4.8 [facility] Automated blood lymphocyte c ount as percentage of total leukocyteson 2020 Lymphocytes/100 WBC (Bld) 25.0 % [facility] Automated blood monocyte cou nton 2020 Monocytes (Bld) [#/Vol] 0.6 10*3/uL 0.0-0.8 [facility] Automated blood platelet cou nt (count/volume)on 2020 Platelets (Bld) [#/Vol] 177 10*3/uL 150-450 [facility] Automated blood platelet rishabh n volume measurementon 2020 Platelet mean volume (Bld) [Entitic vol] 6.9 fL 6.6-10.1 [facility] Automated eosinophil %on Eosinophils/100 WBC (Bld) 3.8 % [facility] Automated eosinophil counton 2020 Eosinophils (Bld) [#/Vol] 0.2 10*3/uL 0.0-0.45 [facility] Automated erythrocyte distri bution width ratioon 2020 Erythrocyte distribution width (RBC) [Ratio] 12.3 % 12.0-14.8 [facility] Automated erythrocyte mean c orpuscular hemoglobin (mass per erythrocyte)on 2020 MCH (RBC) [Entitic mass] 35.9 pg 27.5-35.2 [facility] Automated erythrocyte mean c orpuscular hemoglobin concentration measurement (mass/volon 2020 MCHC (RBC) [Mass/Vol] 34.2 g/dL 32.5-35.6 [facility] Automated erythrocyte mean c orpuscular volumeon 2020 MCV (RBC) [Entitic vol] 105.1 fL 83.5-101 [facility] Automated monocyte %on 10-07 Monocytes/100 WBC (Bld) 12.5 % [facility] Automated neutrophil %on Neutrophils/100 WBC (Bld) 58.5 % [facility] Blood erythrocytes automated count (number/volume)on 2020 RBC (Bld) [#/Vol] 3.74 10*6/uL 3.90-5.60 [facility] Blood hemoglobin measurement (mass/volume)on 2020 Hemoglobin (Bld) [Mass/Vol] 13.4 g/dL 13.0-17.0 [facility] Blood leukocytes automated c ount (number/volume)on 2020 WBC (Bld) [#/Vol] 4.6 10*3/uL 4.5-11.0 [facility] Blood neutrophil count by au tomated method (number/volume)on 2020 Neutrophils (Bld) [#/Vol] 2.7 10*3/uL 1.8-7.7 [facility] Body fluid albumin measureme nt (mass/volume)on 2020 Albumin (Body fld) [Mass/Vol] 3.6 g/dL 3.2-5.5 [facility] Cholesterol [Mass/volume] in Serum or Plasmaon 2020 Cholesterol [Mass/Vol] 93 mg/dL 140-200 [facility] Comment on above: Chol less than 200 m g/dl low riskChol 201-239 mg/dl borderline riskChol 240 mg/dl and greater high risk Cholesterol in LDL [Mass/vol ume] in Serum or Plasma by calculationon 2020 Cholesterol in LDL [Mass/Vol] 42 mg/dL 0-100 [facility] Comment on above: LDL ATP III CLASSIFI CATIONLDL less than 100 mg/dL OptimalLDL 100-129 mg/dL Near or above optimalLDL 130-159 mg/dL Borderline highLDL 160-189 mg/dL HighLDL greater than 189 mg/dL Very high Cholesterol in VLDL [Mass/vo lume] in Serum or Plasma by calculationon 2020 Cholesterol in VLDL [Mass/Vol] 7 mg/dL [facility] Estimated glomerular filtrat ion rate (GFR) non- Americanon 2020 GFR/1.73 sq M predicted among non-blacks MDRD (S/P/Bld) [Vol rate/Area] 51 mL/min/{1.73_m2} [facility] Hematocrit [Volume Fraction] of Blood by Automated counton 2020 Hematocrit (Bld) [Volume fraction] 39.3 % 38.8-50.0 [facility] Otheron 2020 GFR/1.73 sq M.predicted MDRD (S/P/Bld) [Vol rate/Area] mL/min/{1.73_m2} [facility] Comment on above: GFR estimated refere nce range: According to KDOQI guidelines, <60 ml/min/1.73m2 is sufficient to diagnose a patient with chronic kidney disease. Nucleated RBC/100 WBC (Bld) [Ratio] 0.0 % 0-0.5 [facility] Creatinine Clearance (Chem N/A [facility] Protein [Mass/volume] in Ser um or Plasmaon 2020 Protein [Mass/Vol] 7.3 g/dL 6.1-7.9 [facility] Serum globulin measurement b y calculation (mass/volume)on 2020 Globulin (S) [Mass/Vol] 3.7 g/dL [facility] Serum or plasma alanine huntley otransferase measurement without P-5'-P (enzymatic activion 2020 ALT No additional P-5'-P [Catalytic activity/Vol] 23 U/L 10-60 [facility] Serum or plasma albumin/glob ulin mass ratioon 2020 Albumin/Globulin [Mass ratio] 1.0 {ratio} [facility] Serum or plasma alkaline latoya sphatase measurement (enzymatic activity/volume)on 2020 ALP [Catalytic activity/Vol] 63 U/L 32-92 [facility] Serum or plasma aspartate am inotransferase measurement (enzymatic activity/volume)on 2020 AST [Catalytic activity/Vol] 18 U/L 10-42 [facility] Serum or plasma calcium ilana urement (mass/volume)on 2020 Calcium [Mass/Vol] 9.8 mg/dL 8.2-10.2 [facility] Serum or plasma chloride rishabh surement (moles/volume)on 2020 Chloride [Moles/Vol] 104 mmol/L 95-114 [facility] Serum or plasma creatinine m easurement with calculation of estimated glomerular filtron 2020 Creatinine [Mass/Vol] 1.37 mg/dL 0.64-1.27 [facility] Serum or plasma glucose ilana urement (mass/volume)on 2020 Glucose [Mass/Vol] 116 mg/dL 70-100 [facility] Comment on above: ADA recommended refe rence rangeRandom Glucose Reference Range is dependent on time and content of last meal. Glucose of more than 200 mg/dL in a nonstressed, ambulatory subject supports the diagnosis of Diabetes Mellitus. Serum or plasma high density lipoprotein (HDL) cholesterol measurementon 2020 Cholesterol in HDL [Mass/Vol] 43 mg/dL 29-71 [facility] Comment on above: HDL CHOL ATP-III CLA SSIFICATION Cardiovascular RiskHDL > or equal to 60 mg/dL LOWHDL < 40 mg/dL HIGH Serum or plasma potassium me asurement (moles/volume)on 2020 Potassium [Moles/Vol] 4.1 mmol/L 3.5-5.1 [facility] Serum or plasma sodium measu rement (moles/volume)on 2020 Sodium [Moles/Vol] 140 mmol/L 136-146 [facility] Serum or plasma total biliru bin measurement (mass/volume)on 2020 Bilirubin [Mass/Vol] 0.7 mg/dL 0.3-1.2 [facility] Serum or plasma total carbon dioxide measurement (moles/volume)on 2020 CO2 [Moles/Vol] 24.4 mmol/L 22.0-30.0 [facility] Serum or plasma total choles terol/high density lipoprotein (HDL) cholesterol mass noni 2020 Cholesterol.total/Chol esterol in HDL [Mass ratio] 2.2 {ratio} [facility] Serum or plasma urea nitroge n measurement (mass/volume)on 2020 Urea nitrogen [Mass/Vol] 24 mg/dL 9-23 [facility] Triglyceride [Mass/volume] i n Serum or Plasmaon 2020 Triglyceride [Mass/Vol] 39 mg/dL 35-149 [facility] Comment on above: TRIG ATP III [...] Jeffery Caceres MD 02/04/20 Final result Normal [facility] 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 [place], [place] EXAMINATION: CT OF T HE HEAD [...] of the visualized skull or soft tissues. [place], [place], [facility] Incoming R adiant Results From [facility] - 02/04/2020 4:14 PM EDT EXAMINATION: CT [...] cerebral artery infarct without evidence for hemorrhage. [facility], [place] EVENT MONITORon 01-07-2020 EVENT MONITOR [address] [id number] EVENT MONITOR PATIENT NAME: NEIL WILCOX : 1945 MED REC NO: [id number] ROOM: [facility] ACCOUNT NO: [id number] ADMIT DATE: 12/21/2019 PROVIDER: Sabine Schrader EVENT [...] couplets. SABINE SCHRADER /PGAYTAN Doc#: Unknown Normal [facility] CTA HEAD NECK W CONTRASTon 0 [...] Wilton Parekh MD 12/22/19 Final result Normal [facility] Comp Metabolic Pr/rfx MGon 0 12-22-2019 AST [Catalytic activity/Vol] 21 U/L Normal <40 [facility] Comment on above: Performed By: #### C MPX, GLYHGB, LIPR, LACTIC, CDP #### [facility] [place] [address] Conference Producer: Juan F Dominguez MD Drug Scr, Abuse, Uron 2019 Amphetamine(s),Ur Negative Normal NEG [facility] Comment on above: Result Comment: (Positive cutoff 1000 ng/mL) Performed By: #### Artem SCHULZ UA, UMICAO #### [facility] [place] [address] Conference Producer: Juan F Dominguez MD Barbiturate(s),Ur Positive Abnormal NEG [facility] Comment on above: Result Comment: (Positive cutoff 200 ng/mL) Performed By: #### Artem SCHULZ UA, UMICAO #### [facility] [address] [place] [id number] Conference Producer: Juan F Dominguez MD Base excess Calc (Bld) [Moles/Vol] Negative Normal NEG [facility] Comment on above: Result Comment: (Positive cutoff 300 ng/mL) Performed By: #### ALEXIS MIRANDA, UMICAO #### [facility] [address] [place] [id number] Conference Producer: Juan F Dominguez MD Benzodiazepine(s) Negative Normal NEG [facility] Comment on above: Result Comment: (Positive cutoff 200 ng/mL) Performed By: #### Artem SCHULZ UA, UMICAO #### [facility] [address] [place] [id number] Conference Producer: Juan F Dominguez MD Cannabinoid(s),Ur Negative Normal NEG [facility] Comment on above: Result Comment: (Positive cutoff 50 ng/mL) Performed By: #### ALEXIS MIRANDA, UMICAO #### [facility] [address] [place] [id number] Conference Producer: Juan F Dominguez MD Interpretive Info Assay provides medic al screening only. The absence of expected drug(s) and/or Normal [facility] Comment on above: Result Comment: meta bolite(s) may indicate diluted or adulterated urine, limitations of testing or timing of collection. Testing for legal purposes should be confirmed by another method. To request confirmation of test result, please call the lab within 7 days of sample submission. Performed By: #### Artem SCHULZ UA, UMICAO #### [facility] [address] [place] [id number] Conference Producer: Juan F Dominguez MD Methadone Ql (U) Negative Normal NEG [facility] Comment on above: Result Comment: (Positive cutoff 300 ng/mL) Performed By: #### Artem AU UA, UMICAO #### [facility] [address] [place] [phone] Conference Producer: Juan F Dominguez MD Opiate(s), Ur Negative Normal NEG [facility] Comment on above: Result Comment: (Positive cutoff 300 ng/mL) Performed By: #### Artem SCHULZ UA, UMICAO #### [facility] [address] [place] [address] Conference Producer: Juan F Dominguez MD Oxycodone, Urine Negative Normal NEG [facility] Comment on above: Result Comment: (Positive cutoff 100 ng/mL) Performed By: #### Artem SCHULZ UA, UMICAO #### [facility] [address] [place] [address] 48750 Conference Producer: Juan F Dominguez MD Phencyclidine, Ur Negative Normal NEG [facility] Comment on above: Result Comment: (Positive cutoff 25 ng/mL) Performed By: #### Artem AU UA, UMICAO #### [facility] [address] [place] [address] 89272 Conference Producer: Juan F Dominguez MD Hemoglobin A1Con 12-22-2019 HbA1c (Bld) [Mass fraction] 120 mg/dL Normal [facility] Comment on above: Result Comment: The ADA and AACC recommend providing the estimated average glucose result to permit better patient understanding of their HBA1c result. Performed By: #### Artem SCHULZ UA, UMICAO #### [facility] [address] [place] [address] 47949 Conference Producer: Juan F Dominguez MD HbA1c (Bld) [Mass fraction] 5.8 % Normal 4.0-6.0 [facility] Comment on above: Performed By: #### ALEXIS MIRANDA, UMICAO #### [facility] [address] [place] [address] 49244 Conference Producer: Juan F Dominguez MD Lactic Acidon 12-22-2019 Lactate [Moles/Vol] 1.2 mmol/L Normal 0.7-2.1 [facility] Comment on above: Performed By: #### Artem SCHULZ UA, UMICAO #### [facility] [address] [place] [address] 91473 Conference Producer: Juan F Dominguez MD Lipid Profileon 12-22-2019 Cholesterol [Mass/Vol] 137 mg/dL Normal <200 [facility] Comment on above: Result Comment: Cholesterol Guidelines: <200 Desirable 200-240 Borderline >240 Undesirable Performed By: #### Artem SCHULZ UA, UMICAO #### [facility] [address] [place] [address] 15878 Conference Producer: Juan F Dominguez MD Cholesterol in HDL [Mass/Vol] 53 mg/dL Normal >40 [facility] Comment on above: Result Comment: HDL Guidelines: <40 Undesirable 40-59 Borderline >59 Desirable Performed By: #### Artem SCHULZ UA, UMICAO #### [facility] [address] [place] [address] 46572 Conference Producer: Juan F Dominguez MD Cholesterol in LDL [Mass/Vol] 73 mg/dL Normal 0-130 [facility] Comment on above: Result Comment: LDL Guidelines: <100 Desirable 100-129 Near to/above Desirable 130-159 Borderline >159 Undesirable Direct (measured) LDL and calculated LDL are not interchangeable tests. Performed By: #### Artem SCHULZ UA, UMICAO #### [facility] [address] [place] [address] 40238 Conference Producer: Juan F Dominguez MD Cholesterol.total/Chol esterol in HDL [Mass ratio] 2.6 {ratio} Normal <5 [facility] Comment on above: Performed By: #### Artem SCHULZ UA, UMICAO #### [facility] [address] [place] [address] 46262 Conference Producer: Juan F Dominguez MD Triglyceride [Mass/Vol] 57 mg/dL Normal <150 [facility] Comment on above: Result Comment: Triglyceride Guidelines: <150 Desirable 150-199 Borderline 200-499 High >499 Very high Based on AHA Guidelines for fasting triglyceride, June 2012. Performed By: #### Artem SCHULZ UA, UMICAO #### [facility] [address] [place] [address] 44589 Conference Producer: Juan F Dominguez MD Urinalysis, Routineon 2019 Acetoacetic Acid,Ur TRACE Abnormal NEG [facility] Comment on above: Performed By: #### Artem SCHULZ UA, UMICAO #### [facility] [address] [place] [address] 57261 Conference Producer: Juan F Dominguez MD Bilirubin, SemiQt,Ur Negative Normal NEG [facility] Comment on above: Performed By: #### Artem SCHULZ, UA, UMICAO #### [facility] [address] [place] [address] 08310 Conference Producer: Juan F Dominguez MD Color (U) YELLOW Normal YEL [facility] Comment on above: Performed By: #### Artem AU, UA, UMICAO #### [facility] [address] [place] [address] 57642 Conference Producer: Juan F Dominguez MD Glucose Ql (U) Negative Normal NEG [facility] Comment on above: Performed By: #### Artem AU, UA, UMICAO #### [facility] [address] [place] [address] 24344 Conference Producer: Juan F Dominguez MD Hemoglobin, Ur Negative Normal NEG [facility] Comment on above: Performed By: #### Artem SCHULZ UA, UMICAO #### [facility] [address] [place] [address] 04041 Conference Producer: Juan F Dominguez MD Leukocyte esterase Test strip Ql (U) Negative Normal NEG [facility] Comment on above: Performed By: #### Artem SCHULZ UA, UMICAO #### [facility] [address] [place] [address] 97947 Conference Producer: Juan F Dominguez MD Nitrite,Ur Negative Normal NEG [facility] Comment on above: Performed By: #### Artem SCHULZ, UA, UMICAO #### [facility] [address] [place] [address] 33843 Conference Producer: Juan F Dominguez MD pH (U) 5.0 [pH] Normal 5.0-8.0 [facility] Comment on above: Performed By: #### Artem SCHULZ UA, UMICAO #### [facility] [address] [place] [address] 40564 Conference Producer: Juan F Dominguez MD Protein Ql (U) 1+ Abnormal NEG [facility] Comment on above: Performed By: #### Artem SCHULZ UA, UMICAO #### [facility] [address] [place] [address] 56574 Conference Producer: Juan F Dominguez MD Specific gravity (U) [Rel density] 1.025 Normal 1.005-1.03 0 [facility] Comment on above: Performed By: #### Artem SCHULZ, UA, UMICAO #### [facility] [address] [place] [address] 36671 Conference Producer: Juan F Dominguez MD Turbidity CLEAR Normal CLEAR [facility] Comment on above: Performed By: #### Artem AU, UA, UMICAO #### [facility] [address] [place] [address] 34534 Conference Producer: uJan F Dominguez MD Urobilinogen,Ur Normal Normal NORM [facility] Comment on above: Performed By: #### Artem SCHULZ UA, UMICAO #### [facility] [address] [place] [address] 59955 Conference Producer: Juan F Dominguez MD Urinalysis,Microon 0 ----- Normal [facility] Comment on above: Performed By: #### Artem SCHULZ UA, UMICAO #### [facility] [address] [place] [address] 09946 Conference Producer: Juan F Dominguez MD Casts LM.LPF (Urine sed) [#/Area] 2 TO 5 HYALINE Normal 0-8 [facility] Comment on above: Result Comment: Refe rence range defined for non-centrifuged specimen. Performed By: #### Artem SCHULZ UA, UMICAO #### [facility] [address] [place] [address] 90151 Conference Producer: Juan F Dominguez MD Epithelial cells LM.HPF (Urine sed) [#/Area] 0 TO 2 Normal 0-5 [facility] Comment on above: Performed By: #### Artem SCHULZ UA, UMICAO #### [facility] [address] [place] [address] 15948 Conference Producer: Juan F Dominguez MD RBC (U) [#/Vol] 0 TO 2 Normal 0-4 [facility] Comment on above: Result Comment: Refe rence range defined for non-centrifuged specimen. Performed By: #### Artem SCHULZ UA, UMICAO #### [facility] [address] [place] [address] 53604 Conference Producer: Juan F Dominguez MD WBC (U) [#/Vol] 2 TO 5 Normal 0-5 [facility] Comment on above: Performed By: #### Artem SCHULZ UA, UMICAO #### [facility] [address] [place] [address] 24606 Conference Producer: Juan F Dominguez MD CBC with Diffon 12-21-2019 Abs. Basophil <0.03 Normal 0.00-0.20 [facility] Comment on above: Performed By: #### C MPX, GLYHGB, LIPR, LACTIC, CDP #### [address] [address] Conference Producer: Juan F Dominguez MD Abs.Imm.Granulocyte <0.03 Normal 0.00-0.30 [facility] Comment on above: Performed By: #### C MPX, GLYHGB, LIPR, LACTIC, CDP #### [place] [address] Conference Producer: Juan F Dominguez MD Abs.Neutrophil (Seg) 2.41 k/uL Normal 1.50-8.10 [facility] Comment on above: Performed By: #### C MPX, GLYHGB, LIPR, LACTIC, CDP #### [place] [address] Conference Producer: Juan F Dominguez MD Auto Diff Performed NOT REPORTED Normal [facility] Comment on above: Performed By: #### C MPX, GLYHGB, LIPR, LACTIC, CDP #### [address] [address] Conference Producer: Juan F Dominguez MD Basophils/100 WBC (Bld) 0 % Normal 0-2 [facility] Comment on above: Performed By: #### C MPX, GLYHGB, LIPR, LACTIC, CDP #### [place] [address] Conference Producer: Juan F Dominguez MD Eosinophils (Bld) [#/Vol] 0.08 10*3/uL Normal 0.00-0.44 [facility] Comment on above: Performed By: #### C MPX, GLYHGB, LIPR, LACTIC, CDP #### [address] [address] Conference Producer: Juan F Dominguez MD Eosinophils/100 WBC (Bld) 2 % Normal 1-4 [facility] Comment on above: Performed By: #### C MPX, GLYHGB, LIPR, LACTIC, CDP #### [address] [address] Conference Producer: Juan F Dominguez MD Erythrocyte distribution width (RBC) [Ratio] 11.9 % Normal 11.8-14.4 [facility] Comment on above: Performed By: #### C MPX, GLYHGB, LIPR, LACTIC, CDP #### [address] [address] Conference Producer: Juan F Dominguez MD Hematocrit (Bld) [Volume fraction] 38.8 % Low 40.7-50.3 [facility] Comment on above: Performed By: #### C MPX, GLYHGB, LIPR, LACTIC, CDP #### [address] [address] Conference Producer: Juan F Dominguez MD Hemoglobin (Bld) [Mass/Vol] 13.6 g/dL Normal 13.0-17.0 [facility] Comment on above: Performed By: #### C MPX, GLYHGB, LIPR, LACTIC, CDP #### [address] [address] Conference Producer: Juan F Dominguez MD Immature granulocytes (Bld) [#/Vol] 0 % Normal 0 [facility] Comment on above: Performed By: #### C MPX, GLYHGB, LIPR, LACTIC, CDP #### [address] [address] Conference Producer: Juan F Dominguez MD Lymphocytes (Bld) [#/Vol] 1.11 10*3/uL Normal 1.10-3.70 [facility] Comment on above: Performed By: #### C MPX, GLYHGB, LIPR, LACTIC, CDP #### [address] [address] Conference Producer: Juan F Dominguez MD Lymphocytes/100 WBC (Bld) 28 % Normal 24-43 [facility] Comment on above: Performed By: #### C MPX, GLYHGB, LIPR, LACTIC, CDP #### [address] [address] Conference Producer: Juan F Dominguez MD MCH (RBC) [Entitic mass] 35.8 pg High 25.2-33.5 [facility] Comment on above: Performed By: #### C MPX, GLYHGB, LIPR, LACTIC, CDP #### [place] [address] Conference Producer: Juan F Dominguez MD MCHC (RBC) [Mass/Vol] 35.1 g/dL High 28.4-34.8 [facility] Comment on above: Performed By: #### C MPX, GLYHGB, LIPR, LACTIC, CDP #### [address] [address] Conference Producer: Juan F Dominguez MD MCV (RBC) [Entitic vol] 102.1 fL Normal 82.6-102.9 [facility] Comment on above: Performed By: #### C MPX, GLYHGB, LIPR, LACTIC, CDP #### [address] [address] Conference Producer: Juan F Dominguez MD Monocytes (Bld) [#/Vol] 0.41 10*3/uL Normal 0.10-1.20 [facility] Comment on above: Performed By: #### C MPX, GLYHGB, LIPR, LACTIC, CDP #### [facility] [address] Conference Producer: Juan F Dominguez MD Monocytes/100 WBC (Bld) 10 % Normal 3-12 [facility] Comment on above: Performed By: #### C MPX, GLYHGB, LIPR, LACTIC, CDP #### [facility] [address] [place] [address] 83055 Conference Producer: Juan F Dominguez MD Neutrophil (Seg) 60 % Normal 36-65 [facility] Comment on above: Performed By: #### C MPX, GLYHGB, LIPR, LACTIC, CDP #### [address] [address] Conference Producer: Juan F Dominguez MD NRBC Automated 0.0 per 100 WBC Normal 0.0 [facility] Comment on above: Performed By: #### C MPX, GLYHGB, LIPR, LACTIC, CDP #### [address] [address] Conference Producer: Juan F Dominguez MD Platelet mean volume (Bld) [Entitic vol] 8.2 fL Normal 8.1-13.5 [facility] Comment on above: Performed By: #### C MPX, GLYHGB, LIPR, LACTIC, CDP #### [address] [address] Conference Producer: Juan F Dominguez MD Platelets (Bld) [#/Vol] NOT REPORTED Normal [facility] Comment on above: Performed By: #### C MPX, GLYHGB, LIPR, LACTIC, CDP #### [facility] [address] [place] [address] 25997 Conference Producer: Juan F Dominguez MD Platelets (Bld) [#/Vol] 200 10*3/uL Normal 138-453 [facility] Comment on above: Performed By: #### C MPX, GLYHGB, LIPR, LACTIC, CDP #### [facility] [place] [address] Conference Producer: Juan F Dominguez MD RBC (Bld) [#/Vol] 3.80 10*6/uL Low 4.21-5.77 [facility] Comment on above: Performed By: #### C MPX, GLYHGB, LIPR, LACTIC, CDP #### [address] [address] Conference Producer: Juan F Dominguez MD RBC morphology finding Nom (Bld) NOT REPORTED Normal [facility] Comment on above: Performed By: #### C MPX, GLYHGB, LIPR, LACTIC, CDP #### [facility] [address] [place] [address] 82369 Conference Producer: Juan F Dominguez MD WBC (Bld) [#/Vol] 4.0 10*3/uL Normal 3.5-11.3 [facility] Comment on above: Performed By: #### C MPX, GLYHGB, LIPR, LACTIC, CDP #### [address] [address] Conference Producer: Juan F Dominguez MD WBC Morphology NOT REPORTED Normal [facility] Comment on above: Performed By: #### C MPX, GLYHGB, LIPR, LACTIC, CDP #### [address] [address] Conference Producer: Juan F Dominguez MD Comp Metabolic Pr/rfx MGon 0 12-21-2019 (cont.) Normal [facility] Comment on above: Result Comment: Aver age GFR for 70 or more years old: 75 mL/min/1.73sq m Chronic Kidney Disease: <60 mL/min/1.73sq m Kidney failure: <15 mL/min/1.73sq m eGFR calculated using average adult body mass. Additional eGFR calculator available at: http://www.gauzz.[employer]/multiple_crcl_2012.htm Performed By: #### C MPX, GLYHGB, LIPR, LACTIC, CDP #### [address] [address] Conference Producer: Juan F Dominguez MD Albumin [Mass/Vol] 3.9 g/dL Normal 3.5-5.2 [facility] Comment on above: Performed By: #### C MPX, GLYHGB, LIPR, LACTIC, CDP #### [address] [address] Conference Producer: Juan F Dominguez MD Albumin/Globulin [Mass ratio] 1.2 {ratio} Normal 1.0-2.5 [facility] Comment on above: Performed By: #### C MPX, GLYHGB, LIPR, LACTIC, CDP #### [address] [address] Conference Producer: Juan F Dominguez MD Alkaline Phos 80 U/L Normal 40-129 [facility] Comment on above: Performed By: #### C MPX, GLYHGB, LIPR, LACTIC, CDP #### [address] [address] Conference Producer: Juan F Dominguez MD ALT [Catalytic activity/Vol] 22 U/L Normal 5-41 [facility] Comment on above: Performed By: #### C MPX, GLYHGB, LIPR, LACTIC, CDP #### [address] [address] Conference Producer: Juan F Dominguez MD Anion gap [Moles/Vol] 15 mmol/L Normal 9-17 [facility] Comment on above: Performed By: #### C MPX, GLYHGB, LIPR, LACTIC, CDP #### [address] [address] Conference Producer: Juan F Dominguez MD Bilirubin Ql (U) 0.74 mg/dL Normal 0.3-1.2 [facility] Comment on above: Performed By: #### C MPX, GLYHGB, LIPR, LACTIC, CDP #### [address] [address] Conference Producer: Juan F Dominguez MD BUN/CRE Ratio NOT REPORTED Normal 9-20 [facility] Comment on above: Performed By: #### C MPX, GLYHGB, LIPR, LACTIC, CDP #### [address] [address] Conference Producer: Juan F Dominguez MD Calcium [Mass/Vol] 9.5 mg/dL Normal 8.6-10.4 [facility] Comment on above: Performed By: #### C MPX, GLYHGB, LIPR, LACTIC, CDP #### [address] [address] Conference Producer: Juan F Dominguez MD Chloride [Moles/Vol] 99 mmol/L Normal 98-107 [facility] Comment on above: Performed By: #### C MPX, GLYHGB, LIPR, LACTIC, CDP #### [address] [address] Conference Producer: Juan F Dominguez MD CO2 [Moles/Vol] 20 mmol/L Normal 20-31 [facility] Comment on above: Performed By: #### C MPX, GLYHGB, LIPR, LACTIC, CDP #### [address] [address] Conference Producer: Juan F Dominguez MD Creatinine [Mass/Vol] 0.77 mg/dL Normal 0.70-1.20 [facility] Comment on above: Performed By: #### C MPX, GLYHGB, LIPR, LACTIC, CDP #### [address] [address] Conference Producer: Juan F Dominguez MD GFR, Amer >60 Normal >60 [facility] Comment on above: Performed By: #### C MPX, GLYHGB, LIPR, LACTIC, CDP #### [facility] [address] [place] [address]246 Conference Producer: Juan F Dominguez MD GFR,non Amer >60 Normal >60 [facility] Comment on above: Performed By: #### C MPX, GLYHGB, LIPR, LACTIC, CDP #### [facility] [address] [place] [address] 19859 Conference Producer: Juan F Dominguez MD Glucose [Mass/Vol] 86 mg/dL Normal 70-99 [facility] Comment on above: Performed By: #### C MPX, GLYHGB, LIPR, LACTIC, CDP #### [address] [address] Conference Producer: Juan F Dominguez MD Potassium [Moles/Vol] 4.2 mmol/L Normal 3.7-5.3 [facility] Comment on above: Performed By: #### C MPX, GLYHGB, LIPR, LACTIC, CDP #### [address] [address] Conference Producer: Juan F Dominguez MD Protein [Mass/Vol] 7.2 g/dL Normal 6.4-8.3 [facility] Comment on above: Performed By: #### C MPX, GLYHGB, LIPR, LACTIC, CDP #### [facility] [address] [place] [address] Conference Producer: Juan F Dominguez MD Sodium [Moles/Vol] 134 mmol/L Low 135-144 [facility] Comment on above: Performed By: #### C MPX, GLYHGB, LIPR, LACTIC, CDP #### [facility] [address] [place] [address] Conference Producer: Juan F Dominguez MD Staging: NOT REPORTED Normal [facility] Comment on above: Performed By: #### C MPX, GLYHGB, LIPR, LACTIC, CDP #### [facility] [address] [place] [address] Conference Producer: Juan F Dominguez MD Urea nitrogen [Mass/Vol] 16 mg/dL Normal 8-23 [facility] Comment on above: Performed By: #### C MPX, GLYHGB, LIPR, LACTIC, CDP #### [facility] [address] [place] [address] Conference Producer: Juan F Dominguez MD Drug Scr, Abuse, Uron 2019 Buprenorphrine, Ur NOT REPORTED Normal NEG [facility] Comment on above: Performed By: #### D AU UA, UMICAO #### [facility] [address] [place] [address] Conference Producer: Juan F Dominguez MD MDMA, Urine NOT REPORTED Normal NEG [facility] Comment on above: Performed By: #### D AU, UA, UMICAO #### [facility] [address] [place] [address]111 Conference Producer: Juan F Dominguez MD Methamphetamine, Ur NOT REPORTED Normal NEG [facility] Comment on above: Performed By: #### Artem AU, UA, UMICAO #### [facility] [address] [place] [address] Conference Producer: Juan F Dominguez MD Propoxyphene,Urine NOT REPORTED Normal NEG [facility] Comment on above: Performed By: #### D AU, UA, UMICAO #### [facility] [address] [place] [address] 12643 Conference Producer: Juan F Dominguez MD Tricyclic antidepressants Screen Ql (U) NOT REPORTED Normal NEG [facility] Comment on above: Performed By: #### Artem AU, UA, UMICAO #### [facility] [address] [place] [address] Conference Producer: Juan F Dominguez MD Lactic Acidon 12-21-2019 Lactate [Moles/Vol] NOT REPORTED Normal [facility] Comment on above: Performed By: #### D AU UA, UMICAO #### [facility] [address] [place] [address] Conference Producer: Juan F Dominguez MD Lipid Profileon 12-21-2019 Cholesterol in VLDL [Mass/Vol] NOT REPORTED Normal 10-23 [facility] Comment on above: Performed By: #### Artem SCHULZ UA, UMICAO #### [facility] [address] [place] [address] Conference Producer: Juan F Dominguez MD Urinalysis, Routineon 2019 Comment NOT REPORTED Normal [facility] Comment on above: Performed By: #### Artem SCHULZ UA, UMICAO #### [facility] [address] [place] [address] Conference Producer: Juan F Dominguez MD Urinalysis,Microon 0 Amorphous sediment LM Ql (Urine sed) NOT REPORTED Normal [facility] Comment on above: Performed By: #### Artem SCHULZ UA, UMICAO #### [facility] [address] [place] [address] Conference Producer: Juan F Dominguez MD Bacteria LM.HPF (Urine sed) [#/Area] NOT REPORTED Normal [facility] Comment on above: Performed By: #### D AU, UA, UMICAO #### [facility] [address] [place] [address] Conference Producer: Juan F Dominguez MD Crystals LM Nom (Urine sed) NOT REPORTED Normal [facility] Comment on above: Performed By: #### Artem AU UA, UMICAO #### [facility] [address] [place] [address] Conference Producer: Juan F Dominguez MD Epithelial, Renal NOT REPORTED Normal 0 [facility] Comment on above: Performed By: #### D AU, UA, UMICAO #### [facility] [address] [place] [address] Conference Producer: Juan F Dominguez MD Mucus Strands NOT REPORTED Normal NONE [facility] Comment on above: Performed By: #### D AU, UA, UMICAO #### [facility] [address] [place] [address] Conference Producer: Juan F Dominguez MD Other Observations NOT REPORTED Normal NREQ [facility] Comment on above: Performed By: #### D AU, UA, UMICAO #### [facility] [address] [place] [address] Conference Producer: Juan F Dominguez MD Trichomonas NOT REPORTED Normal NONE [facility] Comment on above: Performed By: #### D AU, UA, UMICAO #### [facility] [address] [place] [address] Conference Producer: Juan F Dominguez MD Yeast LM Ql (Urine sed) NOT REPORTED Normal [facility] Comment on above: Performed By: #### D AU, UA, UMICAO #### [facility] [address] [place] [address] Conference Producer: Juan F Dominguez MD Social History Date Type Detail Facility Start: 08-13-2023 End: 10-22-2023 Alcohol intake Lifetime non-drinker (finding) [facility] Work Phone: Start: 06-15-2022 End: 08-22-2023 Occasional caffeine consumption Occasional caffeine consumption [facility] Comment on above: Quit 1960's; Tea; Start: 06-15-2022 End: 08-22-2023 Sex Assigned At Male [facility] Start: 08-22-2023 Alcohol intake Ex-drinker (finding) [facility] Work Phone: Start: 08-12-2023 End: 12-28-2023 Exposure to SARS-CoV-2 (event) Not sure [employer] Start: 08-29-2021 End: 12-03-2023 Tobacco smoking status Never smoked tobacco (finding) [facility] Start: 10-13-2020 End: 10-22-2023 Tobacco use and exposure [facility] Start: 02-04-2020 End: 03-05-2024 Tobacco smoking status NHIS Former smoker [facility] Start: 1945 Sex Assigned At Not on file M [facility] Start: 1945 Sex Assigned At Male [facility] Tobacco smoking status Never [facility] End: 09-24-1957 History of tobacco use Current smoker [facility] Work Phone: End: 09-24-1957 History of tobacco use Cigarette Smoker [facility] Work Phone: Vital Signs Date Time Vital Sign Value Performing Clinician Facility 03-20-2024 09:23-0400 Body weight 74.7 kg DO Sam Cooney Work Phone: [facility] 03-20-2024 08:23-0400 Body temperature 98 [degF] DO Sam Cooney Work Phone: [facility] 03-20-2024 08:23-0400 Diastolic blood pressure 72 mm[Hg] DO Sam Cooney Work Phone: [facility] 03-20-2024 08:23-0400 Heart rate 86 /min DO Sam Caldwell Work Phone: [facility] 03-20-2024 08:23-0400 Respiratory rate 20 /min DO Sam Caldwell Work Phone: [facility] 03-20-2024 08:23-0400 SaO2% (BldA) [Mass fraction] 97 % DO Sam Caldwell Work Phone: [facility] 03-20-2024 08:23-0400 Systolic blood pressure 121 mm[Hg] DO [place] Caldwell Work Phone: [facility] 03-14-2024 08:53-0400 Body temperature 98.2 [degF] DO [place] Caldwell Work Phone: [facility] 03-14-2024 08:53-0400 Body weight 71.07 kg DO [place] Caldwell Work Phone: [facility] 03-14-2024 08:53-0400 Diastolic blood pressure 48 mm[Hg] DO [place] Caldwell Work Phone: [facility] 03-14-2024 08:53-0400 Heart rate 78 /min DO Sam Caldwell Work Phone: [facility] 03-14-2024 08:53-0400 Respiratory rate 18 /min DO [place] Caldwell Work Phone: [facility] 03-14-2024 08:53-0400 SaO2% (BldA) [Mass fraction] 95 % DO [place] Caldwell Work Phone: [facility] 03-14-2024 08:53-0400 Systolic blood pressure 84 mm[Hg] DO Sam Caldwell Work Phone: [facility] 03-09-2024 15:11-0400 Body temperature 97.9 [degF] DO [place] Caldwell Work Phone: [facility] 03-09-2024 15:11-0400 Diastolic blood pressure 74 mm[Hg] DO [place] Caldwell Work Phone: [facility] 03-09-2024 15:11-0400 Heart rate 65 /min DO [place] Caldwell Work Phone: [facility] 03-09-2024 15:11-0400 Respiratory rate 16 /min DO Sam Caldwell Work Phone: [facility] 03-09-2024 15:11-0400 SaO2% (BldA) [Mass fraction] 97 % DO [place] Caldwell Work Phone: [facility] 03-09-2024 15:11-0400 Systolic blood pressure 135 mm[Hg] DO [place] Caldwell Work Phone: [facility] 03-09-2024 06:00-0400 Body weight 77.1 kg DO [place] Caldwell Work Phone: [facility] 03-07-2024 09:29-0400 Body height 175.26 cm DO [place] Caldwell Work Phone: [facility] 03-05-2024 19:10-0400 Body temperature 97.4 [degF] DO [place] Caldwell Work Phone: [facility] 03-05-2024 19:10-0400 Diastolic blood pressure 63 mm[Hg] DO Sam Caldwell Work Phone: [facility] 03-05-2024 19:10-0400 Heart rate 75 /min DO Sam Caldwell Work Phone: [facility] 03-05-2024 19:10-0400 Respiratory rate 21 /min DO Sam Caldwell Work Phone: [facility] 03-05-2024 19:10-0400 SaO2% (BldA) [Mass fraction] 98 % DO Sam Caldwell Work Phone: [facility] 03-05-2024 19:10-0400 Systolic blood pressure 135 mm[Hg] DO [place] Caldwell Work Phone: [facility] 03-05-2024 18:45-0400 Body height 175.26 cm DO [place] Caldwell Work Phone: [facility] 03-05-2024 18:45-0400 Body weight 76.2 kg DO [place] Caldwell Work Phone: [facility] 03-05-2024 11:31-0400 Diastolic blood pressure 66 mm[Hg] DO [place] Caldwell Work Phone: [facility] 03-05-2024 11:31-0400 Systolic blood pressure 82 mm[Hg] DO [place] Caldwell Work Phone: [facility] 03-05-2024 11:30-0400 Heart rate 74 /min DO [place] Caldwell Work Phone: [facility] 03-05-2024 11:30-0400 Respiratory rate 18 /min DO [place] Caldwell Work Phone: [facility] 03-05-2024 11:30-0400 SaO2% (BldA) [Mass fraction] 98 % DO [place] Caldwell Work Phone: [facility] 03-03-2024 13:45-0400 Body weight 78.01 kg DO [place] Caldwell Work Phone: [facility] 03-03-2024 13:45-0400 Diastolic blood pressure 63 mm[Hg] DO Sam Caldwell Work Phone: [facility] 03-03-2024 13:45-0400 Heart rate 71 /min DO [place] Caldwell Work Phone: [facility] 03-03-2024 13:45-0400 Respiratory rate 16 /min DO [place] Caldwell Work Phone: [facility] 03-03-2024 13:45-0400 SaO2% (BldA) [Mass fraction] 99 % DO Sam Caldwell Work Phone: [facility] 03-03-2024 13:45-0400 Systolic blood pressure 112 mm[Hg] DO [place] Caldwell Work Phone: [facility] 02-21-2024 14:59-0400 Body height 175.26 cm DO Sam Cooney Work Phone: [facility] 02-21-2024 14:59-0400 Body mass index (BMI) [Ratio] 25.4 kg/m2 DO Sam Caldwell Work Phone: [facility] 02-21-2024 14:59-0400 Body temperature 97.7 [degF] DO Sam Caldwell Work Phone: [facility] 02-21-2024 14:59-0400 Body weight 78.01 kg DO Sam Caldwell Work Phone: [facility] 02-21-2024 14:59-0400 Diastolic blood pressure 58 mm[Hg] DO Sam Caldwell Work Phone: [facility] 02-21-2024 14:59-0400 Heart rate 74 /min DO Sam Caldwell Work Phone: [facility] 02-21-2024 14:59-0400 Respiratory rate 202 /min DO Sma Cooney Work Phone: [facility] 02-21-2024 14:59-0400 SaO2% (BldA) [Mass fraction] 100 % DO Sam Cooney Work Phone: [facility] 02-21-2024 14:59-0400 Systolic blood pressure 93 mm[Hg] DO Sam Cooney Work Phone: [facility] 12-03-2023 15:25-0400 Blood Pressure Location Trungemily FERGUSON [facility] 12-03-2023 15:25-0400 Diastolic blood pressure 74 mm[Hg] Trung FERGUSON [facility] 12-03-2023 15:25-0400 Heart rate 76 /min Trung FERGUSON [facility] 12-03-2023 15:25-0400 Respiratory rate 16 /min Trung MARTY [facility] 12-03-2023 15:25-0400 Systolic blood pressure 137 mm[Hg] Trung FERGUSON [facility] 10-22-2023 11:54-0500 Body height 175.3 cm Za Hernández MD Work Phone: [facility] 10-22-2023 11:54-0500 Body mass index (BMI) [Ratio] 27.17 kg/m2 Za Hernández MD Work Phone: [facility] 10-22-2023 11:54-0500 Body weight 83.46 kg Za Hernández MD Work Phone: [facility] 10-22-2023 11:54-0500 Diastolic blood pressure 72 mm[Hg] Za Hernández MD Work Phone: [facility] 10-22-2023 11:54-0500 Heart rate 56 /min Za Hernández MD Work Phone: [facility] 10-22-2023 11:54-0500 Systolic blood pressure 124 mm[Hg] Za Hernández MD Work Phone: [facility] 08-28-2023 12:20-0500 Diastolic blood pressure 78 mm[Hg] Ryan Cobb MD Work Phone: [facility] 08-28-2023 12:20-0500 Heart rate 60 /min Ryan Cobb MD Work Phone: [facility] 08-28-2023 12:20-0500 Respiratory rate 14 /min Ryan Cobb MD Work Phone: [facility] 08-28-2023 12:20-0500 SaO2% (BldA) [Mass fraction] 98 % Ryan Cobb MD Work Phone: [phone] [place] [address] 08-28-2023 12:20-0500 Systolic blood pressure 137 mm[Hg] Ryan Cobb MD Work Phone: [facility] 08-22-2023 08:48-0500 Body height 175.3 cm Ryan oCbb MD Work Phone: [facility] 08-22-2023 08:48-0500 Body mass index (BMI) [Ratio] 25.84 kg/m2 Ryan Cobb MD Work Phone: [facility] 08-22-2023 08:48-0500 Body temperature 96.01 [degF] Ryan Cobb MD Work Phone: [facility] 08-22-2023 08:48-0500 Body weight 79.38 kg Ryan Cobb MD Work Phone: [facility] 08-22-2023 08:48-0500 Diastolic blood pressure 79 mm[Hg] Ryan Cobb MD Work Phone: [facility] 08-22-2023 08:48-0500 Heart rate 60 /min Ryan Cobb MD Work Phone: [facility] 08-22-2023 08:48-0500 Respiratory rate 16 /min Ryan Cobb MD Work Phone: [facility] 08-22-2023 08:48-0500 SaO2% (BldA) [Mass fraction] 96 % Ryan Cobb MD Work Phone: [facility] 08-22-2023 08:48-0500 Systolic blood pressure 151 mm[Hg] Ryan Cobb MD Work Phone: [facility] 07-09-2023 11:04-0400 Diastolic blood pressure 78 mm[Hg] Trung FERGUSON [facility] 07-09-2023 11:04-0400 Heart rate 68 /min Trung FERGUSON [facility] 07-09-2023 11:04-0400 Respiratory rate 16 /min Trung FERGUSON [facility] 07-09-2023 11:04-0400 Systolic blood pressure 132 mm[Hg] Trung FERGUSON [facility] 06-11-2023 11:27-0400 Diastolic blood pressure 60 mm[Hg] Sam Cooney Work Phone: [facility] DO Work Phone: 06-11-2023 11:27-0400 Systolic blood pressure 118 mm[Hg] Sam Cooney Work Phone: [facility] DO Work Phone: 06-11-2023 10:51-0400 Body height 175.26 cm Sam Meneses Caldwell Work Phone: [facility] DO Work Phone: 06-11-2023 10:51-0400 Body mass index (BMI) [Ratio] 26.29 kg/m2 Sam Cooney Work Phone: [facility] DO Work Phone: 06-11-2023 10:51-0400 Body surface area Derived from formula 1.97 m2 Sam Cooney Work Phone: [facility] DO Work Phone: 06-11-2023 10:51-0400 Body weight 80.74 kg Sam Cooney Work Phone: [facility] DO Work Phone: 06-11-2023 10:51-0400 Diastolic blood pressure 76 mm[Hg] Sam Meneses Caldwell Work Phone: [facility] DO Work Phone: 06-11-2023 10:51-0400 Heart rate 66 /min Sam E Caldwell Work Phone: [facility] DO Work Phone: 06-11-2023 10:51-0400 Systolic blood pressure 128 mm[Hg] [place] E Caldwell Work Phone: [facility] DO Work Phone: 04-03-2023 09:05-0400 Blood Pressure Location CHARLOTTE RITESH [facility] 04-03-2023 09:05-0400 Diastolic blood pressure 56 mm[Hg] CHARLOTTE RITESH [facility] 04-03-2023 09:05-0400 Heart rate 58 /min CHARLOTTE IRTESH [facility] 04-03-2023 09:05-0400 Respiratory rate 16 /min CHARLOTTE RITESH [facility] 04-03-2023 09:05-0400 Systolic blood pressure 96 mm[Hg] CHARLOTTE RITESH [facility] 02-26-2023 12:14-0400 Diastolic blood pressure 40 mm[Hg] [place] E Caldwell Work Phone: [facility] DO Work Phone: 02-26-2023 12:14-0400 Systolic blood pressure 82 mm[Hg] [place] E Caldwell Work Phone: [facility] DO Work Phone: 02-26-2023 12:14-0400 50 1 [place] E Caldwell Work Phone: [facility] DO Work Phone: Comment on above: [email or web address] 02-26-2023 11:37-0400 Body height 175.26 cm Sam Cooney Work Phone: [facility] DO Work Phone: 02-26-2023 11:37-0400 Body mass index (BMI) [Ratio] 25.93 kg/m2 Sam Cooney Work Phone: [facility] DO Work Phone: 02-26-2023 11:37-0400 Body surface area Derived from formula 1.95 m2 Sam Cooney Work Phone: [facility] DO Work Phone: 02-26-2023 11:37-0400 Body weight 79.65 kg Sam Cooney Work Phone: [facility] DO Work Phone: 02-26-2023 11:37-0400 Diastolic blood pressure 52 mm[Hg] Sam Cooney Work Phone: [facility] DO Work Phone: 02-26-2023 11:37-0400 Heart rate 56 /min Sam Cooney Work Phone: [facility] DO Work Phone: 02-26-2023 11:37-0400 Systolic blood pressure 98 mm[Hg] Sam Cooney Work Phone: [facility] DO Work Phone: 01-23-2023 14:12-0400 Blood Pressure Location CHARLOTTE BAKER [facility] 01-23-2023 14:12-0400 Diastolic blood pressure 76 mm[Hg] CHARLOTTE RITESH [facility] 01-23-2023 14:12-0400 Heart rate 78 /min CHARLOTTE RITESH [facility] 01-23-2023 14:12-0400 Respiratory rate 16 /min CHARLOTTE RITESH [facility] 01-23-2023 14:12-0400 Systolic blood pressure 130 mm[Hg] CHARLOTTE RITESH [facility] 01-01-2023 11:45-0400 Blood Pressure Location Trung FERGUSON [facility] 01-01-2023 11:45-0400 Diastolic blood pressure 88 mm[Hg] Trung FERGUSON [facility] 01-01-2023 11:45-0400 Heart rate 67 /min Trung FERGUSON [facility] 01-01-2023 11:45-0400 Respiratory rate 16 /min Trung FERGUSON [facility] 01-01-2023 11:45-0400 Systolic blood pressure 135 mm[Hg] Trung FERGUSON [facility] 11-03-2022 13:02-0500 Blood Pressure Location Trung FERGUSON [facility] 11-03-2022 13:02-0500 Diastolic blood pressure 74 mm[Hg] Trung FERGUSON [facility] 11-03-2022 13:02-0500 Heart rate 68 /min Trugn FERGUSON [facility] 11-03-2022 13:02-0500 Respiratory rate 16 /min Trung FERGUSON [facility] 11-03-2022 13:02-0500 Systolic blood pressure 128 mm[Hg] Trung FERGUSON [facility] 10-09-2022 13:22-0500 Diastolic blood pressure 74 mm[Hg] Sam Cooney Work Phone: [facility] DO Work Phone: 10-09-2022 13:22-0500 Systolic blood pressure 136 mm[Hg] Sam Meneses Caldwell Work Phone: [facility] DO Work Phone: 10-09-2022 13:05-0500 Body height 175.26 cm Sam Meneses Caldwell Work Phone: [facility] DO Work Phone: 10-09-2022 13:05-0500 Body mass index (BMI) [Ratio] 26.58 kg/m2 Sam Cooney Work Phone: [facility] DO Work Phone: 10-09-2022 13:05-0500 Body surface area Derived from formula 1.98 m2 Sam Meneses Caldwell Work Phone: [facility] DO Work Phone: 10-09-2022 13:05-0500 Body weight 81.65 kg Sam Cooney Work Phone: [facility] DO Work Phone: 10-09-2022 13:05-0500 Diastolic blood pressure 72 mm[Hg] Sam Meneses Caldwell Work Phone: [facility] DO Work Phone: 10-09-2022 13:05-0500 Heart rate 84 /min Sam Meneses Caldwell Work Phone: [facility] DO Work Phone: 10-09-2022 13:05-0500 Systolic blood pressure 142 mm[Hg] Sam Meneses Caldwell Work Phone: [facility] DO Work Phone: 10-02-2022 15:48-0500 Body height 175.26 cm [place] Gideon Caldwell Work Phone: [facility] DO Work Phone: 10-02-2022 15:48-0500 Body mass index (BMI) [Ratio] 26.43 kg/m2 Sam Gideon Caldwell Work Phone: [facility] DO Work Phone: 10-02-2022 15:48-0500 Body surface area Derived from formula 1.97 m2 Sam Meneses Caldwell Work Phone: [facility] DO Work Phone: 10-02-2022 15:48-0500 Body weight 81.19 kg Sam Meneses Caldwell Work Phone: [facility] DO Work Phone: 10-02-2022 15:48-0500 Diastolic blood pressure 82 mm[Hg] Sam Meneses Caldwell Work Phone: [facility] DO Work Phone: 10-02-2022 15:48-0500 Heart rate 68 /min Sam Meneses Caldwell Work Phone: [facility] DO Work Phone: 10-02-2022 15:48-0500 Systolic blood pressure 134 mm[Hg] [place] E Caldwell Work Phone: [facility] DO Work Phone: 10-02-2022 11:32-0500 Blood Pressure Location Trung FERGUSON [facility] 10-02-2022 11:32-0500 Diastolic blood pressure 75 mm[Hg] Trung FERGUSON [facility] 10-02-2022 11:32-0500 Heart rate 70 /min Trungemily FERGUSON [facility] 10-02-2022 11:32-0500 Respiratory rate 16 /min Trung FERGUSON [facility] 10-02-2022 11:32-0500 Systolic blood pressure 134 mm[Hg] Trung FERGUSON [facility] 09-11-2022 13:07-0500 Diastolic blood pressure 84 mm[Hg] [place] E Caldwell Work Phone: [facility] DO Work Phone: 09-11-2022 13:07-0500 Diastolic blood pressure 92 mm[Hg] [place] E Caldwell Work Phone: [facility] DO Work Phone: 09-11-2022 13:07-0500 Systolic blood pressure 144 mm[Hg] Sam E Caldwell Work Phone: [facility] DO Work Phone: 09-11-2022 13:07-0500 Systolic blood pressure 148 mm[Hg] [place] E Caldwell Work Phone: [facility] DO Work Phone: 09-11-2022 13:00-0500 Body height 175.26 cm [place] Gideon Caldwell Work Phone: [facility] DO Work Phone: 09-11-2022 13:00-0500 Body mass index (BMI) [Ratio] 25.99 kg/m2 [place] E Caldwell Work Phone: [facility] DO Work Phone: 09-11-2022 13:00-0500 Body surface area Derived from formula 1.96 m2 [place] E Caldwell Work Phone: [facility] DO Work Phone: 09-11-2022 13:00-0500 Body weight 79.83 kg [place] E Caldwell Work Phone: [facility] DO Work Phone: 09-11-2022 13:00-0500 Heart rate 62 /min [place] Gideon Caldwell Work Phone: [facility] DO Work Phone: 08-28-2022 13:16-0500 Body height 175.26 cm Sam Gideon Caldwell Work Phone: [facility] DO Work Phone: 08-28-2022 13:16-0500 Body mass index (BMI) [Ratio] 25.84 kg/m2 [place] E Caldwell Work Phone: [facility] DO Work Phone: 08-28-2022 13:16-0500 Body surface area Derived from formula 1.95 m2 [place] E Caldwell Work Phone: [facility] DO Work Phone: 08-28-2022 13:16-0500 Body weight 79.38 kg Sam E Caldwell Work Phone: [facility] DO Work Phone: 08-28-2022 13:16-0500 Diastolic blood pressure 94 mm[Hg] Sam Cooney Work Phone: [facility] DO Work Phone: 08-28-2022 13:16-0500 Heart rate 88 /min Sam Cooney Work Phone: [facility] DO Work Phone: 08-28-2022 13:16-0500 Systolic blood pressure 152 mm[Hg] Sam Cooney Work Phone: [facility] DO Work Phone: 06-15-2022 10:12-0400 Body height 175.26 cm Sam Cooney Work Phone: [facility] DO Work Phone: 06-15-2022 10:12-0400 Body mass index (BMI) [Ratio] 24.81 kg/m2 Sam Cooney Work Phone: [facility] DO Work Phone: 06-15-2022 10:12-0400 Body surface area Derived from formula 1.92 m2 Sam Cooney Work Phone: [facility] DO Work Phone: 06-15-2022 10:12-0400 Body weight 76.2 kg Sam Cooney Work Phone: [facility] DO Work Phone: 06-15-2022 10:12-0400 Diastolic blood pressure 82 mm[Hg] Sam Cooney Work Phone: [facility] DO Work Phone: 06-15-2022 10:12-0400 Heart rate 64 /min Sam Mensees Caldwell Work Phone: [facility] DO Work Phone: 06-15-2022 10:12-0400 Systolic blood pressure 160 mm[Hg] Sam Meneses Caldwell Work Phone: [facility] DO Work Phone: 06-15-2022 10:12-0400 4 1 Sam Meneses Caldwell Work Phone: [facility] DO Work Phone: Comment on above: [id number] 04-24-2022 11:18-0400 Blood Pressure Location Trung Evena Medical [facility] 04-24-2022 11:18-0400 Diastolic blood pressure 86 mm[Hg] Trung Evena Medical [facility] 04-24-2022 11:18-0400 Heart rate 74 /min Trung FERGUSON [facility] 04-24-2022 11:18-0400 Respiratory rate 16 /min Trung FERGUSON [facility] 04-24-2022 11:18-0400 Systolic blood pressure 134 mm[Hg] Trung FERGUSON [facility] 01-23-2022 12:57-0400 Blood Pressure Location [facility] 01-23-2022 12:57-0400 Diastolic blood pressure 87 mm[Hg] Trung FERGUSON [facility] 01-23-2022 12:57-0400 Heart rate 70 /min Trung FERGUSON [facility] 01-23-2022 12:57-0400 Respiratory rate 16 /min Trung FERGUSON [facility] 01-23-2022 12:57-0400 Systolic blood pressure 139 mm[Hg] Trung FERGUSON [facility] 08-31-2021 13:24-0500 Body height 175.26 cm Sam Gideon Eros Work Phone: [facility] DO Work Phone: 08-31-2021 13:24-0500 Body mass index (BMI) [Ratio] 27.02 kg/m2 Sam Cooney Work Phone: [facility] DO Work Phone: 08-31-2021 13:24-0500 Body surface area Derived from formula 1.99 m2 Sam Cooney Work Phone: [facility] DO Work Phone: 08-31-2021 13:24-0500 Body weight 83.01 kg Sam Cooney Work Phone: [facility] DO Work Phone: 08-31-2021 13:24-0500 Diastolic blood pressure 88 mm[Hg] Sam Cooney Work Phone: [facility] DO Work Phone: 08-31-2021 13:24-0500 Heart rate 74 /min Sam Meneses Caldwell Work Phone: [facility] DO Work Phone: 08-31-2021 13:24-0500 Systolic blood pressure 142 mm[Hg] Sam Gideon Caldwell Work Phone: [facility] DO Work Phone: 08-03-2021 09:57-0500 Body height 175.26 cm Sam Meneses Caldwell Work Phone: [facility] DO Work Phone: 08-03-2021 09:57-0500 Body mass index (BMI) [Ratio] 26.29 kg/m2 [place] Gideon Caldwell Work Phone: [facility] DO Work Phone: 08-03-2021 09:57-0500 Body surface area Derived from formula 1.97 m2 Sam Meneses Caldwell Work Phone: [facility] DO Work Phone: 08-03-2021 09:57-0500 Body weight 80.74 kg Sam Meneses Caldwell Work Phone: [facility] DO Work Phone: 08-03-2021 09:57-0500 Diastolic blood pressure 90 mm[Hg] Sam Meneses Caldwell Work Phone: [facility] DO Work Phone: 08-03-2021 09:57-0500 Heart rate 66 /min Sam Meneses Caldwell Work Phone: [facility] DO Work Phone: 08-03-2021 09:57-0500 Systolic blood pressure 170 mm[Hg] Sam Meneses Eros Work Phone: [facility] DO Work Phone: Functional Status Date Assessment Result Facility 03-09-2024 Functional status Patient at Baseline [facility] Work Phone: 03-05-2024 Functional status Patient is Pro gressing Toward Baseline [facility] Work Phone: 12-03-2023 Functional Status N/A [facility] [facility] 07-09-2023 Functional Status N/A [facility] 04-03-2023 Functional Status N/A [facility] 01-23-2023 Functional Status N/A [facility] 01-01-2023 Functional Status N/A [facility] 11-03-2022 Functional Status N/A [facility] 10-02-2022 Functional Status N/A [facility] 06-15-2022 PHQ-9 [id number] In Remission (0-4 ) [facility] 250 DO Work Phone: 04-24-2022 Functional Status N/A [facility] Mental Status Date Assessment Result Facility 03-09-2024 Cognitive function Cognitive Sta tus Patient at Baseline [facility] Work Phone: 03-05-2024 Cognitive function Cognitive Sta tus Patient is Progressing Toward Baseline [facility] Work Phone: Clinical Notes 11-23-2019 to 03-10-2024 Note Date & Type Note Facility 03-10-2024 Hospital Discharg e instructions Additional Instructions [facility] to manage care: - Full code - PT/OT eval and treat - Routine vital signs - Mepilex border foam to Coccyx for added protection. Change every 3 days and as needed. - CBC/CMP on Sunday - results to Oncology Dr. Cuevas [facility] Work Phone: 03-09-2024 Discharge summary Note Date/Time March 09, 2024 2:18pm [facility] [address] [place] [address] Discharge Summary Signed Patient: Neil Wilcox MR#: [id number] 0543 : 1945 Acct:[id number] Age/Sex: 78 / M Adm Date: 4 Loc: Room: [address] [place] [address]: Vijay Aguilar MD Copies to: MD Sam Zhang,~ Providers Date of Admission: 03/05/24 Date of [...] who was in a CAT scan at [facility] getting a bone marrow biopsy when [...] can be found in the EHR of [facility]. The patient left hospital appropriately in stable [...] pending. Discharge Plan Discharge Plan Patient Disposition: [facility] Care/Resident Activity: No Activity Restriction Diet: Regular Additional Instructions: [facility] to manage care: - Full code - [...] 21 DAYS AND 7 DAYS OFF.ADULT MALE AUTH#[id number] losartan 100 mg tablet 100 mg PO [...] Timeframe: 1 Day Facility: ACUTE - Location: [facility] Main Mobile Ordered By: Bertha Cuevas Complete Blood Count Auto Diff (Stat) Timeframe: 1 Day Location: Determined by Patient Ordered By: Bertha Cuevas Complete Blood Count Auto Diff (Stat) Timeframe: 1 Day Facility: ACUTE - Location: [facility] Ordered By: Bertha Cuevas Complete Blood [...] Timeframe: 1 Day Facility: ACUTE - Location: [facility] Ordered By: Bertha Cuevas Comprehensive Metabolic Panel (Stat) Timeframe: 1 Day Facility: ACUTE - Location: [facility] Ordered By: Bertha Cuevas Follow Up: Bertha Cuevas MD [[facility] - Physician] - 03/19/24 2:00 [...] % (Auto) N/A, Lymph % (Auto) N/A, [place] % (Auto) N/A, Eos % (Auto) N/A, Baso % (Auto) N/A, Nucleat RBC Rel Count N/A, Neut # (Auto) N/A, Lymph # (Auto) N/A, [place] # (Auto) N/A, Eos # (Auto) N/A, [...] signed by Vijay Aguilar MD> 03/09/24 1531 [facility] Work Phone: 1(995) 831-694506-15-2024 Progress note Author Vijay Aguilar [facility] March 08, 2024 7:44pm Note Date/Time March 08, 2024 7:45 pm [facility] [address] [place] [address] Hospitalist Progress Note Signed Patient: Neil Wilcox MR#: [id number] 0543 : 1945 Acct:[id number] Age/Sex: 78 / M Adm Date: 4 Loc: Room: [address] [place] [address] Type: ADM IN Attending Dr: Vijay Aguilar [...] who was in a CAT scan at [facility] getting a bone marrow biopsy when [...] <Electronically signed by Vijay Aguilar MD> 03/08/241943 [facility] Work Phone: 1(618) 257-278006-14-2024 Progress note Author Verenice Mario [facility] March 07, 2024 2:50pm Note Date/Time March 07, 2024 2:50 pm [facility] [address] [place] [address] Med Onc/Hem Progress Note Signed Patient: Neil Wilcox MR#: [id number] 0543 : 1945 Acct:[id number] Age/Sex: 78 / M Adm Date: 4 Loc: Room: [address] [place] [address] Type: ADM IN Attending Dr: Roslyn Townsend [...] now progressed. Most recent labs done at [facility] during his evaluation for falls where he [...] from and daughter. He had visited the [place] after the event for site seen but [...] labs came back high concerning for IGA [place] monoclonal multiple myeloma with IgA 3828, M [...] % (Auto) 38.8, Lymph % (Auto) 49.0, [place] % (Auto) 1.2, Eos % (Auto) 10.7, Baso % (Auto) 0.3, Nucleat RBC Rel Count 0.5, Neut # (Auto) 0.8 L, Lymph # (Auto) 1.0, [place] # (Auto) 0.0, Eos # (Auto) 0.2, [...] MD Verenice Mario> 03/07/24 1450 [facility] Work Phone: 1(566) 224-483706-14-2024 Progress note Author Roslyn Townsend [facility] March 07, 2024 2:38pm Note Date/Time March 07, 2024 10:0 7am [facility] [address] [place] [address] Hospitalist Progress Note Signed Patient: Neil Wilcox MR#: [id number] 0543 : 1945 Acct:[id number] Age/Sex: 78 / M Adm Date: 4 Loc: Room: [address] [place] [address] Type: ADM IN Attending Dr: Roslyn Townsend DO Copies to: ~ Date of Service: 03/07/2024 Subjective Subjective Narrative: Mr. Wilcox is a 78M recently diagnosed with multiple myeloma with a PMHx of pancytopenia and renal insufficiency who was in a CAT scan at [facility] getting a bone marrow biopsy when [...] mg 03/05/24 14:09 Bisacodyl 5 Mg Tablet.Dr PO 03/05/25 14:08 DAILY PRN Constipation Bortezomib [...] <Electronically signed by Roslyn Townsend DO> 03/07/24 1433 [facility] Work Phone: 1(655) 777-573006-14-2024 Progress note Author Roslyn Townsend [facility] March 07, 2024 9:31am Note Date/Time March 06, 2024 11:1 7am [facility] [address] [place] [address] Hospitalist Progress Note Signed Patient: Neil Wilcox MR#: [id number] 0543 : 1945 Acct:[id number] Age/Sex: 78 / M Adm Date: 06/12/2 4 Loc: 3T Room: 5I8121-0 Type: ADM IN Attending Dr: Roslyn Townsend [...] Tablet.Dr PONCE 03/05/25 14:08 DAILY PRN Constipation Cyanocobalamin 1,000 [...] Acute renal insufficiency - BUN/Cr trending down - follow CMP DVT ppx: SCDs Diet: [...] <Electronically signed by Roslyn Townsend DO> 03/07/24 0327 [facility] Work Phone: 1(899) 832-838806-13-2024 [facility] Consult note Author Bertha Cuevas [facility] March 05, 2024 4:49pm Note Date/Time March 05, 2024 4:49 pm [facility] [address] [place] [address] Med Onc/Hem Consult Note Signed Patient: Neil Wilcox MR#: [id number] 0543 : 1945 Acct:[id number] Age/Sex: 78 / M Adm Date: 4 Loc: ER Room: Type: [facility] ER Attending Dr: Copies to: MD Trung Segundo DO Reagan E Bristol,DEVENDRA CONSULT DATE: 03/05/2024 REQUESTING PROVIDER: Dr Roslyn [...] now progressed. Most recent labs done at [facility] during his evaluation for falls where he [...] from and daughter. He had visited the [place] after the event for site [...] labs came back high concerning for IGA [place] monoclonal multiple myeloma with IgA 3828, M [...] fracture and therefore he is admitted [facility] now for rehab and probably long- term due to his dementia. He is a and was not active in water but he was in [place] and during [place] War. He visited [facility] for the sightseeing but was not during the nuclear [place] event. He has been having multiple falls as well since June 2023. [facility] Medical History (Updated 03/05/24 @ 14:13 by [...] Confirmed 03/05/24] thyroid (pork) 90 mg tablet ([place] Thyroid) 90 mg PO QAM thyroid 02/27/20 [...] 03/05/24 16:06 03/05/24 16:06 03/05/24 16:06 03/05/24 16:06 03/05/24 12:51 Narrative: ECOG performance status is 2 [...] % (Auto) N/A, Lymph % (Auto) N/A, [place] % (Auto) N/A, Eos % (Auto) N/A, Baso % (Auto) N/A, Nucleat RBC Rel Count N/A, Neut # (Auto) N/A, Lymph # (Auto) N/A, [place] # (Auto) N/A, Eos # (Auto) N/A, [...] signed by Bertha Cuevas MD> 03/05/24 1649 [facility] Work Phone: 1(978) 248-562606-12-2024 History and physical note Author Roslyn Townsend [facility] March 05, 2024 4:12pm Note Date/Time March 05, 2024 3:45 pm [facility] [address] [place] [address] Hospitalist H&P Signed Patient: Neil Wilcox MR#: [id number] 0543 : 1945 Acct:[id number] Age/Sex: 78 / M Adm Date: 4 Loc: ER Room: Type: [facility] ER Attending Dr: Copies to: Trung Armenta, DO Sam Cooney,DO Roslyn Townsend, ~ HPI DATE OF EXAMINATION: 03/05/24 CHIEF COMPLAINT: Hypotension HISTORY OF PRESENT ILLNESS: Mr. Wilcox is a 78M recently diagnosed with multiple myeloma with a PMHx of pancytopenia and renal insufficiency who was in a CAT scan at [facility] getting a bone marrow biopsy when [...] unless noted below or in HPI [facility] Medical History (Updated 03/05/24 @ 14:13 by Background [place]) Hypercalcemia Thrombocytopenia Elevated total protein Acute renal [...] Confirmed 03/05/24] thyroid (pork) 90 mg tablet ([place] Thyroid) 90 mg PO QAM thyroid 02/27/20 [...] 11:49 Lymph % (Auto) N/A 03/05/24 11:49 [place] % (Auto) N/A 03/05/24 11:49 Eos % (Auto) N/A 03/05/24 11:49 Baso % (Auto) N/A 03/05/24 11:49 Nucleat RBC Rel Count N/A 03/05/24 11:49 Neut # (Auto) N/A 03/05/24 11:49 Lymph # (Auto) N/A 03/05/24 11:49 [place] # (Auto) N/A 03/05/24 11:49 Eos # [...] 03/05/24 11:49 Creatinine 2.19 mg/dL (0.70-1.30) H 06/12/24 11:49 Est GFR (CKD-EPI) 30.449 mL/Min 03/05/24 [...] <Electronically signed by Roslyn Townsend DO> 03/05/24 4740 [facility] Work Phone: 1(159) 750-780106-12-2024 History and physical note Author Roslyn Townsend [facility] March 05, 2024 4:12pm Note Date/Time March 05, 2024 3:45 pm [facility] [address] [place] [address] Hospitalist H&P Signed Patient: Neil Wilcox MR#: [id number] 0543 : 1945 Acct:[id number] Age/Sex: 78 / M Adm Date: 4 Loc: ER Room: Type: [facility] ER Attending Dr: Copies to: DO Sam Camara,DO Roslyn Townsend DO~ HPI DATE OF EXAMINATION: 03/05/24 CHIEF COMPLAINT: Hypotension HISTORY OF PRESENT ILLNESS: Mr. Wilcox is a 78M recently diagnosed with multiple myeloma with a PMHx of pancytopenia and renal insufficiency who was in a CAT scan at [facility] getting a bone marrow biopsy when [...] unless noted below or in HPI [facility] Medical History (Updated 03/05/24 @ 14:13 by [...] Confirmed 03/05/24] thyroid (pork) 90 mg tablet ([place] Thyroid) 90 mg PO QAM thyroid 02/27/20 [...] 11:49 Lymph % (Auto) N/A 03/05/24 11:49 [place] % (Auto) N/A 03/05/24 11:49 Eos % (Auto) N/A 03/05/24 11:49 Baso % (Auto) N/A 03/05/24 11:49 Nucleat RBC Rel Count N/A 03/05/24 11:49 Neut # (Auto) N/A 03/05/24 11:49 Lymph # (Auto) N/A 03/05/24 11:49 [place] # (Auto) N/A 03/05/24 11:49 Eos # [...] Myeloma Pancytopenia - will consult oncology Raegan Snow, 4 Attending attestation: Patient is a 78-year-old male [...] 4 Documented By: Roslyn Townsend DO 03/05/24 6750 Signed By: <Electronically signed by Roslyn Townsend DO> 03/05/24 1612 [facility] Work Phone: 1(889) 545-737303-11-2024 Hospital Discharge instructions Patient Education 12/03/2023 16:13:12 [...] your health care provider. General instructions Take ovmp-dox-acrrmij and prescription medicines only as told by [...] provider. Document Revised: 05/30/2021 Document Reviewed: 05/30/2021 [employer] Patient Education 2022 [employer]. Follow Up Care 07/09/2023 11:46:47 With:MARTY BETANCOURT, Trung Frost, URL Address: [facility] [address], [place] [address] [phone] When: Unknown Comments:6 mos (increase med dosage) [facility]27[facility]24 NoteProcedure Cancelation Documentation Entered On: 11/20/2023 10:21 EST Performed On: 11/20/2023 10:17 EST by Sahra Lizarraga RN Procedure Cancelation Documentation Surgery Procedure Cancelation : 11/20/2023 10:17 EST Surgery Procedure Cancel Reason : low hemoglobin/hematocrit. dr shaffer spoke with patient + pt's at length. pt instructed to contact primary care physician Sahra Lizarraga RN - 11/20/2023 10:17 [facility] 11-20-2023 NotePreprocedure Checklist Entered On: 11/15/2023 [...] risk situation (congregated living, hemodialysis, infusion clinic, [facility], assisted living, shelter, homeless group home, etc.)? : No Sahra Lizarraga RN - 11/20/2023 9:50 EST Checklist NPO Since : 11/20/2023 08:00 EST Last Fluid Intake : 11/20/2023 08:00 EST Last Food Intake : 11/19/2023 18:00 EST Sahra Lizarraga RN - 11/20/2023 9:50 EST Valuables Prechecklist Grid Valuables at Bedside Clothes : Pants, Shirt, Shoes, Undergarments (Comment: TO LOCKER [Sahra Lizarraga RN 49:50 EST] ) Sahra Lizarraga RN - [...] on and Verified : Yes Fall Risk Rehab Technician : Yes Blood Band on and Verified : Yes Current H&P in Medical Record : Yes (Comment: 11/15/23 [Mary Ellen Price RN 11/15/2023 13:49 EST] ) Mary Ellen Price RN - 11/20/2023 9:50 EST Current ECG in Medical Record : Yes (Comment: 10/12/23 [Mary Ellen Price RN 11/15/2023 13:49 EST] ) Basic [place] : Yes (Comment: 10/12/23 [Mary Ellen Price RN 11/15/2023 13:49 EST] ) Prox / APTT : Yes (Comment: 10/12/23 [Mary Ellen Price RN - 11/15/2023 13:49 EST] ) Mary Ellen Price RN - 11/15/2023 13:49 EST CBCND : Yes (Comment: 11/15/23- faxed results to Dr. Shaffer's office [Mary Ellen Prcie RN - 11/15/2023 13:49 EST] ) Mary [...] : Living will, Medical durable power of disability attorney Advance Directive Location : Family to bring in copy from home Advance Directive Additional Information : No Mary Ellen Price RN - 11/15/2023 14:17 EST Surgical Clipper Prep Surgery Clipper Prep : done in preop Sahra Lizarraga RN - 11/20/2023 9:50 EST [facility]02-27-2024 NotePAA Education Entered On: 11/15/2023 13:49 [...] Education Dialysis Surgery - Hospital form # [id number] : Verbalizes understanding Mary Ellen Price RN [...] understanding Mary Ellen Price RN 11/15/2023 13:[facility] NotePatient: NEIL WILCOX Age: 78 years Sex: [...] 500 mg = 1 tabs, PRN, ORAL, [id number] acetaminophen/butalbital/caffeine 325 mg-50 mg-40 mg oral tablet = Fioricet 1 tabs, PRN, ORAL, [id number] Aspirin EC 81 mg oral delayed release [...] 2 mg = 1 caps, PRN, ORAL, [id number] losartan 100 mg oral tablet 100 mg [...] heartburn. Genitourinary: No dysuria, No hematuria. Hematology/Lymphatics: +DONAN. Endocrine: +Hypothyroidism. Musculoskeletal: No joint pain, No [...] strength, No tenderness, No swelling. Integumentary: Warm, [place]. Neurologic: Alert, Oriented. Cognition and Speech: Oriented, [...] cardiac clearance and o (more content not included)...[facility]01-29-2024 History of Present illness Narrative* Za [...] due to atrial fibrillation, on anticoagulation. 10. [id number] at least 5. Has bled score 2 [...] Daily atorvastatin (LIPITOR) 40 mg, oral, Daily ahhraizmra-xjzdxqo-grxsxqxy (Fiorinal) 50-325-40 mg capsule 1 capsule, oral, [...] fatigue 08/10/2023 Paroxysmal atrial fibrillation with RVR ([facility]) 08/10/2023 Status post placement of implantable loop [...] Scribe Attestation By signing my name below, IHlaie LPN, Scribe attest that this documentation has [...] exam, discussion and plan. documented in this [facility]Un[facility] Work Phone: 1(572) 364-128201-29-2024 Instructions* Patient Instructions* Phuong Atkinson CMA - [...] time of your visit. documented in this [facility] Work Phone: 1(890) 491-648701-19-2024 NotePAA Education Entered On: 10/12/2023 10:13 EST [...] Education Dialysis Surgery - Hospital form # [id number] : Needs further teaching Amy Hager RN [...] EST] ) Amy Hager RN 10/12/2023 10:10 [facility] 08-28-2023 Hospital course Narrative* Adam Benedict MD - 08/28/2023 1:11 PM EST Discharge Diagnosis Atrial fibrillation (CMS/HCC) Hospital Course [...] 40 mg tablet; Commonly known as: Lipitor qtrjhkiusc-wprfffmwstrtv-yzig 50-325-40 mg tablet cyanocobalamin 1,000 mcg tablet; [...] Center 09/20/2023 10:30 AM Za Hernández MD [id number] [place] Adam Benedict MD documented in this [facility] Work Phone: 1(994) 511-191212-05-2023 History of Present illness Narrative* Humble Felton, [facility] - 08/28/2023 12:10 PM EST Pharmacy Medication History Review Neil Wilcox is a 77 y.o. male admitted for Atrial fibrillation ([facility]). Pharmacy reviewed the patient's eltcn-es-wvtewfpqw medications and allergies for accuracy. The list below reflects the updated PLUMBER'S ASSISTANT list. Comments regarding how patient may be [...] tablet (40 mg) by mouth once daily. bsvmacwdga-gcpdpddxivpom-iorb 50-325-40 mg tablet Past Week Spouse/Significant Other, [...] Below are additional concerns with the patient's PLUMBER'S ASSISTANT list. Humble Felton [facility] Transitions of Care Clinical Pharmacist Please reach out via [employer] Chat for questions, if no response call [phone] or [facility] documented in this encounterUnMer[facility] Work Phone: [phone]) 714-102312-05-2023 Note* Pre-Sedation Documentation - Adam Benedict MD - 08/28/2023 10:39 AM EST Sedation Plan ASA 2 Mallampati class: II. Risks, benefits, and alternatives discussed with patient. [facility] Work Phone: 1(789) 774-112912-05-2023 Miscellaneous Notes* Pre-Sedation Documentation - Adam Benedict MD - 08/28/2023 10:39 AM EST Sedation Plan ASA 2 Mallampati class: II. Risks, benefits, and alternatives discussed with patient. documented in this encounterProtest[facility] Work Phone: 1([phone]) 144-522212-04-2023 Hospital Discharge instructions* Discharge Instructions* Lucas Pearce [...] you have any concerns, youmay contact the Actor Understudy or if any of these symptoms become excessive, contact your effervescent salts compounder maikel to the emergency room. No tub [...] Any new concerning symptoms. documented in this [facility] Work Phone: 1(756) 165-311910-16-2023 Hospital Discharge instructions Patient Education 07/09/2023 11:37:10 [...] urethra. Follow these instructions at home: Take puul-mxc-xjyozxc and prescription medicines only as told by [...] provider. Document Revised: 03/29/2022 Document Reviewed: 03/29/2022 [employer] Patient Education 2022 [employer]. Follow Up Care 01/01/2023 13:25:14 With:MARTY BETANCOURT, Trung Frost, URL Address: [facility] [address] , [place] [address]- When:Within 4 Month(s) [facility] 07-11-2023 Hospital Discharge instructions Patient Education 04/03/2023 [...] provider. Document Revised: 01/19/2022 Document Reviewed: 01/19/2022 [employer] Patient Education 2022 [employer] Follow Up Care 01/23/2023 14:39:57 With:CHARLOTTE BAKER PA-C, URL Address: [address] [place] [address] When: Unknown Comments:keep appt w/ [facility] 06-01-2023 History of Present illness Narrative* 77-year-old with history of atrial fibrillation, hypercoagulability related to atrial fibrillation,high VRM3FJ5-MKJi score, most recently seen February 2023 and [...] to atrial fibrillation, on anticoagulation. * 10. AGM2HN9-AERt at least 5. Has bled score 2 [...] 50 mg p.o. daily and discontinue amlodipine. -[facility] DO Work Phone: 1([phone]) 884-302305-02-2023 Hospital Discharge instructions Patient Education 01/23/2023 14:45:05 [...] air conditioner or fan, if available. Apply rvvx-kod-xbrosmo and prescription medicines only as told by [...] well after activity or exercise. Use a math and sciences department chair on a cool setting to [...] drying your skin and with medicines. Apply chfy-vjp-qiozvnz and prescription medicines only as told by your health care provider. Keep all follow-up visits as told by your health care provider. This is important. This information is not intended to replace advice given to you by your health care provider. Make sure you discuss any questions you have with your health care provider. Document Revised: 06/26/2022 Document Reviewed: 06/26/2022 [employer] Patient Education 2022 [employer]. [facility] 04-10-2023 Hospital Discharge instructions Patient Education [...] reconstructed. Follow these instructions at home: Take mncy-khq-raadohp and prescription medicines only as told by [...] 10/06/2016 Document Revised: 04/23/2019 Document Reviewed: 04/23/2019 [employer] Patient Education 2020 [employer] Follow Up Care 10/02/2022 12:40:38 With:MARTY BETANCOURT, Trung Frost, URL Address: [facility] [address] , [place] [address]- When: Unknown [facility] 02-10-2023 Hospital Discharge instructions Patient Education 11/03/2022 [...] reconstructed. Follow these instructions at home: Take awdj-vvw-zqwidjj and prescription medicines only as told by [...] 10/06/2016 Document Revised: 04/23/2019 Document Reviewed: 04/23/2019 [employer] Patient Education 2020 [employer]. Follow Up Care 11/03/2022 12:06:47 With:MARTY BETANCOURT, Trung Frost, URL Address: [address] [place], [place] [id number]- When: Unknown [facility] 01-09-2023 Hospital Discharge instructions Patient Education 10/02/2022 [...] fried and sweet foods. General instructions Take tvwy-rcm-sikjuqb and prescription medicines only as told by [...] 07/07/2010 Document Revised: 01/01/2020 Document Reviewed: 09/26/2018 [employer] Patient Education 2019 [employer]. Follow Up Care 07/24/2022 14:33:35 With:MARTY BETANCOURT, Trung Frost, URL Address: [facility] [address], [place] [address]- [phone] When:Within 3 Month(s) [facility] [place] 01-01-2023 History of Present illness Narrative* [...] to atrial fibrillation, on anticoagulation. * 10. [id number]-JVOm at least 5. Has bled score 2 [...] 3 months sooner if interval problems arise [facility] DO Work Phone: 1([phone]) 224-709409-01-2022 History of Present illness Narrative* This is [...] orthostatics * 5. Fall precautions were reiterated. [facility] [facility] Work Phone: [phone]) 952-191208-01-2022 Hospital Discharge instructions Patient Education 04/24/2022 12:32:07 [...] nerve stimulation). For women, using a medical insurance collector to prevent urine leaks. This is a [...] right after experiencing incontinence. General instructions Take qokc-pzx-yxyklak and prescription medicines only as told by [...] 10/18/2005 Document Revised: 09/20/2018 Document Reviewed: 12/20/2017 [employer] Patient Education 2020 [employer]. Follow Up Care 01/24/2022 09:45:35 With:MARTY BETANCOURT, Trung Frost, URL Address: [facility] [address] [place] [phone] When: Unknown Comments:w/ urodynamics [facility] 05-02-2022 Hospital Discharge instructions Patient Education 01/23/2022 [...] urethra. Follow these instructions at home: Take daxj-szp-wvctuim and prescription medicines only as told by [...] 09/10/2006 Document Revised: 08/05/2019 Document Reviewed: 10/15/2017 [employer] [employer] Patient Education 2020 [employer]. Follow Up Care 12/20/2021 10:58:17 With:MARTY BETANCOURT, Trung Frost, URL Address: [facility] [address] , [place] [address]- When: Unknown [facility] 01-01-2022 History of Present illness Narrative* [...] have much in the way of symptoms. -[facility] [address] DO Work Phone: [phone]) 715-996103-01-2020 History of Present illness NarrativeMr. Wilcox is a 75-year-old male seen back today for follow-up on his implanted loop recorder. He was seen initially as a consult requested by neurology. He was admitted to [facility] in [place] in November 2019 with an acute stroke. [...] pain seems to be stable from cardiac perspective.-[facility] DO Work Phone: 1(401) 593-335403-01-2020 History of Present illness Narrative* Patient is new to this provider. Per Dr. Reyes's prior notes: * Mr. Wilcox is a 75-year-old male seen back today for follow-up on his implanted loop recorder. He was seen initially as a consult requested by neurology. He was admitted to [facility] in [place] in November 2019 with an acute stroke. [...] medications for him in viewof his BPH. [facility] DO Work Phone: Chief complaint Narrative - Kristine WILCOX is being seen for Discuss progress.[facility] DO Work Phone: Evaluation + Plan note Future Appointments Appointment Date:01/24/2022 09:30:00 AM Scheduled Provider: Location:[facility] Appointment Type:Urology FT Appointment Date:09/04/2022 08:45:00 AM Scheduled Provider:Trung FERGUSON MD Location:[facility] Appointment Type:URO Office Visit [facility] evaluation + Plan note Future Appointments Appointment Date:04/25/2022 12:15:00 PM Scheduled Provider: Location:[facility] Appointment Type:Urology CALL PAT FT Appointment Date:05/09/2022 11:00:00 AM Scheduled Provider: Location:[facility] Appointment Type:Urology FT Appointment Date:09/04/2022 08:45:00 AM Scheduled Provider:Trung FERGUSON MD Location:[facility] Appointment Type:URO Office Visit [facility] evaluation + Plan note Future Appointments Appointment Date:09/04/2022 08:45:00 AM Scheduled Provider:Trung FERGUSON MD Location:[facility] App[facility]ments Appointment Date:09/29/2022 08:45:00 AM Scheduled Provider:Trung FERGUSON MD Location:[facility] Appointment Type:URO Office Visit [facility] evaluation + Plan note Future Appointments Appointment Date:01/01/2023 11:30:00 AM Scheduled Provider:Trung FERGUSON MD Location:[facility] Appointment Type:URO Office Visit [facility] evaluation + Plan note Future Appointments Appointment Date:01/01/2023 11:30:00 AM Scheduled Provider:Trung FERGUSON MD Location:[facility] Appointment Type:URO Office Visit Diagnostic Tests Pending * Urine Culture [facility]22 [facility] Future App[facility]ments Appointment Date:11/06/2022 09:00:00 AM Scheduled Provider: Location:[facility] Appointment Type:URO Nurse Visit Appointment Date:01/01/2023 11:30:00 AM Scheduled Provider:Trung FERGUSON MD Location:[facility] Appointment Type:URO Office Visit [facility] evaluation + Plan note Future Appointments Appointment Date:07/09/2023 10:30:00 AM Scheduled Provider:Trung FERGUSON MD Location:[facility] Appointment Type:URO Office Visit [facility] evaluation + Plan note Future Appointments Appointment Date:04/03/2023 09:00:00 AM Scheduled Provider:CHARLOTTE BAKER PA-C Location:[facility] Appointment Type:URO Office Visit Appointment Date:07/09/2023 10:30:00 AM Scheduled Provider:Trung FERGUSON MD Location:[facility] Appointment Type:URO Office Visit [facility] evaluation + Plan note Future Appointments Appointment Date:11/12/2023 11:15:00 AM Scheduled Provider:Trung FERGUSON MD Location:[facility] Appointment Type:URO Office Visit [facility] evaluation + Plan note Future Appointments Appointment Date:06/16/2024 01:15:00 PM Scheduled Provider:Trung FERGUSON MD Location:[facility] Appointment Type:URO Office Visit [facility] evaluation noteNo Assessments Information Available [facility] CtrEvaluation noteNo assessment information available [facility] CtrEvaluation note* Diagnosis Paroxysmal atrial fibrillation (CMS/HCC)- Primary Atrial fibrillation Atrial fibrillation (CMS/HCC)- Primary Atrial fibrillation Atrial fibrillation (CMS/HCC) Atrial fibrillation documented in this encounter [facility] Work Phone: Evaluation note* Diagnosis Atrial fibrillation (CMS/HCC)- Primary Atrial fibrillation Atrial fibrillation (CMS/HCC) Atrial fibrillation Chronic atrial fibrillation, unspecified (CMS/HCC) 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 documented in this encounter [facility] Work Phone: Evaluation note* Diagnosis Unspecified [...] of left shoulder documented in this encounter [facility] Work Phone: Evaluation note* Diagnosis Atrial fibrillation, unspecified type (CMS/HCC) documented in this encounter [facility] Work Phone: Evaluation note* Diagnosis Onset Date Resolution Status Acute renal insufficiency [place] Anemia acute Elevated total protein acute Leukopenia acute Pancytopenia acute Thrombocytopenia acute Acute hypotension acute Acute renal insufficiency [place] Anemia acute Hypercalcemia acute Multiple myeloma acute Pancytopenia acute Syncope acute Thrombocytopenia acute [facility] Work Phone: Evaluation note* Diagnosis Onset Date Resolution Status Acute renal insufficiency ac [place] Anemia acute Elevated total protein acute Leukopenia acute Pancytopenia acute Thrombocytopenia acute Acute hypotension acute Acute renal insufficiency [place] Alzheimer's dementia acute Anemia acute Encounter for chemotherapy management acute Hypercalcemia acute Leukopenia acute Multiple myeloma acute Pancytopenia acute Syncope acute Thrombocytopenia acute [facility] Work Phone: Evaluation note* Diagnosis Onset Date Resolution Status Anemia acute Elevated total protein acute Pancytopenia acute Acute renal insufficiency re solved Leukopenia resolved Thrombocytopenia resolved Alzheimer's dementia acute Hypercalcemia acute Multiple myeloma acute Pancytopenia acute Acute hypotension resolved Acute renal insufficiency re solved Anemia resolved Encounter for chemotherapy management resolved Leukopenia resolved Syncope resolved Thrombocytopenia resolved [facility] Work Phone: Evaluation note* Diagnosis Onset [...] Pancytopenia acute Acute renal insufficiency re solved [facility] Work Phone: History of Present illness Narrative* The patient states he has been generally stable since the last visit. Comorbid Illnesses: hypertension. * Symptoms: denies chest pain at rest, denies exertional chest pain, denies dyspnea, worsened fatigue, worsened exercise intolerance, denies palpitations, denies edema, denies orthopnea, denies dizziness and denies orthostatic dizziness. * Disease Monitoring: [facility] DO Work Phone: [...] the near future to establish anticoagulation practice. [facility] Work Phone: History of Present [...] further, check with insurance, and follow-up with Louolu Arreguin in the near future to establish anticoagulation practice. -[facility] Work Phone: History of Present illness [...] medication regimen. He denies medication side effects. [facility] Work Phone: History of Present illness [...] medication regimen. He denies medication side effects. [facility] 250 DO Work Phone: Hospital course Narrative No data available for this section [facility] Hospital Discharge instructions No data available for this section [facility] Additional Instructions [facility] to [facility] care: - Full code - PT/OT eval and treat - Routine vital signs - Mepilex border foam to Coccyx for added protection. Change every 3 days and as needed. - CBC/CMP on Sunday - results to Oncology [facility] Work Phone: Hospital Discharge instructionsAmbulatory Orders* Referral to General Surgery Time Frame: 03/20/24, Location: None Selected [facility] Work Phone: Progress note No data available for this section [facility] progress note Author [facility] March 20, 2024 9:14am Note Date/Time March 20, 2024 8:19 am [facility] [place] [address] Cancer Center Note Signed Patient: Neil Wilcox MR#: [id number] : 1945 Acct:[id number] Age/Sex: 78 / M Type: REG AMB [...] cytopenias. BM Bx, done as inpatient at [facility], revealed multiple myeloma. Myeloma FISH revealed [...] not progressed. 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 [facility] after the event for site [...] labs came back high concerning for IGA [place] monoclonal multiple myeloma with IgA 3828, M [...] cytopenias. BM Bx, done as inpatient at [facility], revealed multiple myeloma. Myeloma FISH revealed [...] up, had bone marrow biopsy while inpatient. [facility] Medical History Medical History (Updated 03/13/24 @ [...] fracture and therefore he is [facility] for [facility] and probably long- term due to his dementia. He is a and was not active in water but he was in [place] and during [place] War. He visited [facility] for the sightseeing but was not during the nuclear [place] event. He has been having multiple falls [...] follow Dictated By: Bertha Cuevas MD DD/ 7 Signed By: <Electronically signed by Bertha Cuevas MD> 03/20/24 0914 [facility] Work Phone: Reason for referral (narrative)* Consultation (Routine) - Authorized Specialty Diagnoses / Procedures Referred By Contac t Referred To Contact Cardiology Diagnoses Paroxysmal atrial fibrillation (CMS/HCC) Procedures Follow Up In Cardiology Za Hernández MD [address] [facility] [address] [place] [address] Za Hernández MD [address] [facility] [address] [place] [address] Referral ID Status Reason Start Date Expiration Date V isits Requested Visits Authorized [id number] Authorized 10/22/2023 10/21/2024 1 1 * Consultation (Routine) - Authorized Specialty Diagnoses / Procedures Referred By Contac t Referred To Contact Cardiology Diagnoses Paroxysmal atrial fibrillation (CMS/HCC) Procedures Follow Up In Cardiology Za Hernández MD [address] [facility] [address] [place] [address] Loulou Arreguin, PROOFING MACHINE OPERATOR-ANDROID PROGRAMMER [address] [facility] [address] [place] [address] Referral ID Status Reason Start Date Expiration Date V isits Requested Visits Authorized [id number] Authorized 10/22/2023 10/21/2024 1 1 [facility] Work Phone: Reason for Referral Status Reason Specialty Diagnoses / Procedures Referred By Contact Referred To Contact Not Required - [facility] Radiology Diagnoses 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) Procedures CT HEAD WO CONTRAST Ul Javier Graham MD [address] [facility] [address] [place] [address] Specialty Diagnoses / Procedures Referred By Contac t Referred To Contact Radiology Diagnoses Atrial fibrillation, unspecified type (CMS/HCC) Procedures [place] [address] [place] [address] Referral ID Status Reason Start Date Expiration Date Visits Requested Visits Authorized [id number] Authorized Perform Procedure 11/01/2023 10/31/2024 1 1 Assessments Diagnosis 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) Advance Directives No Advanced Directives Records FoundDocuments on File Type Date Recorded Patient Travel Writer Expl anation Advance Directives and Living Will Power of Feed House Supervisor Latest Code Status on File Code Status Date Activated Date Inactivated Comments Full Code 12/21/2019 9:20 PM 12/22/2019 7:58 PM Advance Directive Response Recorded Date/ Time Advance Directives No October 30, 2018 10:33am Documents on File Type Date Recorded Patient Travel Writer Expl anation ACP-Advance Directive ACP-Power of Feed House Supervisor Latest Code Status on File Code Status [...] * Patient daily activity includes: drives for [employer], stairs at home * Patient ambulate [...] hypertension.NEIL WILCOX is being seen for hypertension.NEIL WLICOX is being seen for hypertension.NEIL WILCOX is [...] (HCC) Procedures CT HEAD WO CONTRAST Ul Javier Graham MD [address] [facility] [address] [place] [id number] Reason Comments laao Specialty Diagnoses / Procedures Referred By Romelia t Referred To Contact Diagnoses Atrial fibrillation (CMS/HCC) Atrial fibrillation (CMS/HCC) [I48.91] Procedures MI PERQ CLSR TCAT L ATR APNDGE W/ENDOCARDIAL IMPLNT MI PERQ CLSR TCAT L ATR APNDGE W/ENDOCARDIAL IMPLNT LAAO (Left Atrial Appendage Occlusion) [place] [address] [place] [address] [place] [address] [facility] [address] [place] [address] Referral ID Status Reason Start Date Expiration Date Visits Re quested Visits Authorized [id number] 1 1 Reason Comments Follow-up Watchman follow up Specialty Diagnoses / Procedures Referred By Romelia t Referred To Contact Radiology Diagnoses Atrial fibrillation, unspecified type (CMS/HCC) Procedures [place] [address] [place] [address] Referral ID Status Reason Start Date Expiration Date Visits Requested Visits Authorized [id number] Authorized Perform Procedure 11/01/2023 10/31/2024 1 1 [...] section and content) DATE CREATED AUTHOR 10/14/2020 [facility] DATE CREATED AUTHOR AUTHOR'S ORGANIZ ATION 04/23/2021 [facility] DATE CREATED AUTHOR AUTHOR'S ORGANIZ ATION 10/04/2021 [facility] DATE CREATED AUTHOR AUTHOR'S ORGANIZ ATION 01/24/2023 [facility] DATE CREATED AUTHOR AUTHOR'S ORGANIZ ATION 06/15/2023 [facility] DATE CREATED AUTHOR AUTHOR'S ORGANIZ ATION 08/05/2023 [facility] DATE CREATED AUTHOR AUTHOR'S ORGANIZ ATION 09/02/2023 [facility] DATE CREATED AUTHOR AUTHOR'S ORGANIZ ATION 10/24/2023 [facility] DATE CREATED AUTHOR AUTHOR'S ORGANIZ ATION 11/21/2023 [facility] DATE CREATED AUTHOR AUTHOR'S ORGANIZ ATION 12/04/2023 [facility] DATE CREATED AUTHOR AUTHOR'S ORGANIZ ATION 01/03/2024 [facility] DATE CREATED AUTHOR AUTHOR'S ORGANIZ ATION 01/16/2024 [facility] DATE CREATED AUTHOR AUTHOR'S ORGANIZ ATION 02/13/2024 [facility] DATE CREATED AUTHOR AUTHOR'S ORGANIZ ATION 03/05/2024 [facility] DATE CREATED AUTHOR AUTHOR'S ORGANIZ ATION 03/24/2024 [facility] y[facility] Goals (unrecognized section and content) [...] Active Za Hernández MD Attending Provider Active Hand Trucker Relationship Specialty Start Date End Date Sam Cooney DO [address] [place] [address] PCP - General 09/24/19 Hand Trucker Relationship Specialty Start Date End Date Sam Cooney DO [address] [place] [address] PCP - General 09/24/19 Hand Trucker Relationship Specialty Start Date End Date Sam Cooney DO [address] [place] [address] PCP - General 09/24/19 Hand Trucker Relationship Specialty Start Date End Date Sam Cooney MD [address] [place] [address] PCP - General Family Medicine 08/13/23 Hand Trucker Relationship Specialty Start Date End Date Sam Cooney DO [address] [place] [address] PCP - General 09/24/19 Team Status: Inactive [...] Intraprocedure 1218 (Given - Provid er: Kala Canseco, TRE) fentaNYL PF (Sublimaze) injection (CANCELED) As needed, [...] BE BASED ON THE PRIMARY CLINICAL RECORDS. [facility] [employer] [facility]. provides no warranty or guarantee of the accuracy or completeness of information in this document.
[2024-03-26 07:39] LABS: Mean Corpuscular HGB Conc 34.7 g/dL (29.9-35.2); Mean Corpuscular Hemoglobin 33.5 pg (25.9-34.0); Mean Corpuscular Volume 96.7 fL (80.0-94.0); Mean Platelet Volume 10.8 fL (9.5-13.5); Red Blood Count 2.09 10^6/uL (4.70-6.10); Red Cell Distribution Width 17.6 % (11.0-15.0); White Blood Count 1.7 10^3/uL (4.0-11.0)
[2024-03-26 08:40] LABS: Alanine Aminotransferase 16 U/L (16-63); Albumin Globulin Ratio 0.4; Albumin Level 2.2 g/dL (3.4-5.0); Alkaline Phosphatase 63 U/L (46-116); Anion Gap 14.3; Aspartate Amino Transferase 10 U/L (15-37); Bilirubin Total 0.3 mg/dL (0.2-1.0); Calcium 8.3 mg/dL (8.5-10.1); Carbon Dioxide 23.3 mmol/L (21.0-32.0); Chloride 103 mmol/L (98-107); Estimated GFR (African America >60 (>=60); Estimated GFR (Non-African Ame 53 (>=60); Globulin 5.8 g/dL; Glucose 123 mg/dL (74-106); Potassium 4.6 mmol/L (3.5-5.1); Sodium 136 mmol/L (136-145)
[2024-03-26 14:26] LABS: Hematocrit 20.2 % (42.0-54.0)
[2024-03-26 14:27] LABS: Platelet Count 25 10^3/uL (150-450)
[2024-03-26 14:29] LABS: Lymphocytes Absolute Manual 0.54 10^3/uL (1.20-3.80); Segmented Neut Absolute Manual 1.12 10^3/uL (1.4-6.5)
[2024-03-26 14:30] LABS: Anisocytosis 1+
== END 2024-03-26 00:41 | disposition home or self-care (01) ==
LOC: LAB 00:40
PROVIDERS: PCP Family Medicine; Visit Provider Family Medicine
DX: C90.00 Multiple myeloma not having achieved remission (principal)
CPT/HCPCS: 36415; 80053; 85007; 85025; 85027

== ENCOUNTER 2024-04-14 01:43 | Outpatient (REF) | payer MEDICARE, OTHER, SELFPAY ==
--- OUTSIDE RECORDS SUMMARY | 2024-04-14 01:50 | XMS_ITS | CCD ---
Author Organization [facility] CliniSyma Care Team Providers Care Radioactivity Technician Name Role Phone [place], Sam E Primary Care Provider [phone] [place], [place] Primary Care Provider Erick Wise Attending Provider Ul Santos, Israr Attending Provider [phone] [place], [place] E Primary Care Provider [phone] MURRAY LESTER Admitting Unavailable GRAYSON GAOL Attending Unavailable BILLY VILLA Referring Unavailable CYNDY MADISON Consulting Unavailable BRISTOL, ASM E Primary Care Unavailable UL SANTOS, ISRAR Referring Unavailable BRISTOL, SAM E Primary Care Unavailable UL SANTOS, ISRAR Referring Unavailable BRISTOL, SAM E Primary Care Unavailable [place], Sam Attending Provider [place], [place] Primary Care Provider Erick Wise Attending Provider [place], Sam Primary Care Provider [phone] Erick Wise Attending Provider [phone] [place] Attending Provider [phone] [place], [place] E Unavailable Unavailable Unavailable BRISTOL, SAM Primary Care Physician Unavailable Unavailable Eros DO Leean Primary Care Provider MD Za Hernández Attending Provider [phone] TRUNG RUGGIERO Consulting Unavailable FERGUSON ., [...] DR VARGAS Primary Care Unavailable BRISTOL, DR AVRGAS Consulting Unavailable BRISTOL, DR VARGAS Attending Unavailable BRISTOL, DR VARGAS Admitting Unavailable BRISTOL, DR VARGAS Primary Care Unavailable BRISTOL, DR VARGAS Attending Unavailable BRISTOL, DR VARGAS Admitting Unavailable BRISTOL, DR VARGAS Primary Care Unavailable BRISTOL, DR VARGAS Primary Care Unavailable BRISTOL, DR VARGAS Attending Unavailable BRISTOL, DR VARGAS Admitting Unavailable [place], DO Vargas Primary Care Provider MD Za Hernández Attending Provider PURNIMA DAVIDSON JR Primary Care Unavailable [place], DO Vargas Primary Care Provider [phone] MD Za Hernández Attending Provider Sam Cooney DO Primary Care [facility] ider Eros, Dr. Sam Evans [...] Unavailable Rodríguez, MsDeidre Hurt Attending Dima Arreguin, Deidre Hurt Referring Unavai labwalter Cooney, Dr. Sam Evans Primary Care Unavailable Eros, Dr. Sam Evans Primary Care Unavailable [place], Dr. Sam Evans Primary Care Unavailable [place], Dr. Sam Evans Primary Care Unavailable [place], DO Sam Primary Care Provider [phone] MD Za Hernández Attending Provider Sam Cooney MD Primary Care Provider [phone] GUNNAR SHAFFER DO Attending Unavailabl e SHAFFER [...] CHAVEZ Attending Unavailable GRACE VAZQUEZ Attending Unavailable [place], DO Sam Primary Care Provider Eros, DO Sam Referring Provider MD Bertha Cuevas Attending Provider SAM COONEY LEN [facility] Care Unav ailable RYAN COBB Admitting Unavailable RYAN COBB Attending Unavailable BRISTOL, SAM NUNES LEN Primary Care Unav ailable [place], DO [place] Primary Care Provider [place], DO Sam Referring Provider [phone] MD Bertha Cuevas Attending Provider DO Trung Armenta Emergency Provider Kristian, DO Yazid Admit Provider Kristian, DO Yazid Attending Provider MD Verenice Mario Other Provider MD Vijay Aguilar Attending Provider [place], DO [place] Primary Care Provider MD Bertha Cuevas Attending Provider [place], DO Sam Referring Provider MD Za Hernández Attending Provider [phone] [place], DO [place] Referring Provider [place], [place] Primary Care Unavailable Hernández, Za Admitting Unavailable Hernández, Za Attending Unavailable [place], Sam Primary Care Unavailable Hernández, Za Admitting Unavailable Hernández, Za Attending Unavailable Hernández, Za Attending Unavailable Hernández, Za Admitting Unavailable [place], Sam Primary Care Unavailable [place], [place] Primary Care Unavailable Hernández, Za Attending Unavailable Hernández, Za Admitting Unavailable [place], Sam Primary Care Unavailable Al-Marrawi, Mhd Yaser Admitting Unavailabl e Al-Marrawi, Mhd Yaser Attending Unavailabl e [place], [place] Referring Unavailable [place], [place] Primary Care Unavailable Al-Marrawi, Mhd Yaser Admitting Unavailabl e Al-Marrawi, Mhd Yaser Attending UnavailVerenice Sanchez Consulting Unavailable Kristian, Yazid Admitting Unavailable Vijay Aguilar Attending Unavailable [place], [place] Primary Care Unavailable [place], [place] Primary Care Unavailable Hernández, Za Attending Unavailable Hernández, Za Admitting Unavailable [place], DO [place] Referring Provider WILL HERNÁNDEZA Attending Unavailable BRISTOL, SAM [facility] Primary Care Unav ailable Unavailable Unavailable Unavailable Medications Current Medications Medication Drug Class(es) Dates Sig (Normalized) Sig (Original) acetaminophen 500 mg oral capsule (9 sources) Start: 03-05-2024 take 500 mg by [...] three times daily as needed for pain Cmqwufmloh-FHVN-Vyjvdwfy 50-325-40 MG Or al Tablet TAKE 1 TABLET 3 TIMES DAILY NEEDED FOR PAIN. Quantity: 0 Refills: 0 Ordered: 18-Jul-2021 DO Start : 18-Jan-2021 Active Start: 05-19-2019 butalbital-sadie taminophen-caffeine (FIORICET, ESGIC) 50-325-40 MG per tablet Take by mouth 0 05/19/2019 Active Start: 05-19-2019 End: 02-21-2024 Msytopcdxq-Grztgyuimyzxq-Iah f Discontinued 1 TAB PO As Directed May 19, 2019 12:00am February 21, 2024 2:58pm [id number] 200 actuat albuterol 0.09 mg/actuat metered dose [...] 90 Refills: 3 Ordered: 15-Jun-2022 Edgar BETANCOURT, Za Active aspirin 325 mg / butalbital 50 mg / caffeine 40 mg oral capsule (3 sources) Platelet Aggregation Inhibitor, Barbiturate, Nonsteroidal Anti-inflammatory Drug, Central Nervous System Stimulant, Methylxanthine Start: 02-12-2009 take 1 capsule by mouth every four hours as needed cgsfffnrxl-vbjlnag-auwkqyuy (Fiorinal) 50-325-40 mg capsule Take 1 capsule [...] Start: 01-21-2021 take 1 capsule by mo [facility] once daily FLUoxetine (PROzac) 20 [...] Active folic acid 1 mg oral tablet (17 sources) Start: 02-21-2024 take 1 mg by [...] Status: Ordered lenalidomide 25 mg oral capsule (5 sources) Thalidomide Analog Start: 03-07-2024 Lenalidomide (Revlimid) 25 mg capsule Active 25 MG PO Daily March 07, 2024 12:00am TAKE ONE DAILY FOR 21 DAYS AND 7 DAYS OFF.[facility]ULT [facility]#[id number] levothyroxine sodium 0.125 mg oral tablet (20 sources) l-Thyroxine take 1 tablet by mouth once daily before mealtime levothyroxine (Synthroid, Levoxyl) 125 mcg tablet Take 1 tablet (125 mcg) by mouth once daily in the morning. Take before meals. 0 Active levothyroxine (S ynthroid, Levoxyl) 50 MCG tablet Take 90 mcg by mouth. 0 Active take 1 capsule by mo [facility] once daily before breakfast Levothyroxine Sodium [...] Active memantine hydrochloride 10 mg oral tablet (17 sources) F-tiiohx-M-aspartate Receptor Antagonist Start: 02-21-2024 take 10 mg [...] succinate 25 mg extended release oral tablet (18 sources) beta-Adrenergic Misael Start: 02-21-2024 take 25 [...] new start ondansetron 4 mg oral tablet (12 sources) Serotonin-3 Receptor Antagonist Start: 03-05-2024 Ondansetron [...] 40 mg QUEtiapine 25 mg oral tablet (7 sources) Atypical Antipsychotic Start: 02-21-2024 take 0.5 [...] once daily in the morning Thyroid (Pork) ([facility] [place] Thyroid) 90 mg tablet Active 90 MG PO Every morning February 27, 2020 12:00am Start: 12-29-2019 [facility] Thy[facility] Oral, Daily, Refills(s) 0 Start Date: [...] day, # 30 cap(s), Refills(s) 6, Pharmacy: [facility]/pharmacy #[id number], 175, cm, 01/23/22 13:07:00 EDT, Height/Length Dosing, 83, kg, 01/23/22 13:07:00 EDT, Weight Dosing Start Date: 01/23/22 Status: Ordered Start: 01-23-2022 take 1 capsule by mouth once d aily tolterodine 4 mg Cap-ER 4 mg = 1 cap(s), Oral, Daily, # 30 cap(s), Refills(s) 6, Pharmacy: [facility]/pharmacy #[id number], 175, cm, 01/23/22 13:07:00 EDT, Height/Length Dosing, 83, kg, 01/23/22 13:07:00 EDT, Weight Dosing Start Date: 01/23/22 Status: Ordered Start: 09-27-2020 tolterodine 2 mg Cap-ER 2 mg = 1 cap(s), Oral, As Directed, Take one cap in the morning and one at dinnertime., # 60 cap(s), Refills(s) 11, Pharmacy: [facility]/pharmacy #[id number], 175, cm, 12/03/23 15:27:00 EDT, [...] Active vitamin b12 1 mg oral capsule (15 sources) Vitamin B12 Start: 02-21-2024 take 1000 [...] 08/28/2023 Discontinued (Entered in Error) amoxicillin ([place] xil) 500 mg capsule Take 1 capsule [...] procedure, # 2 tab(s), Refills(s) 0, Pharmacy: [facility]/pharmacy #[id number], 175, cm, 01/23/22 13:07:00 EDT, [...] Active dicyclomine hydrochloride 20 mg oral tablet (19 sources) Anticholinergic Start: 05-19-2019 End: 04-07-2020 take [...] Apply as needed prior to self dilation, [facility]/pharmacy #[id number], 175, cm, 11/03/22 13:03:00 EST, Height/Length Dosing, 82.8, kg, 11/03/22 13:03:00 EST, Weight Dosing Start Date: 12/01/22 Stop Date: 12/01/22 Status: Ordered Start: 12-01-2022 End: 12-01-2022 Glydo 2% topical gel with ap plicator 11 mL 0.2 gm, 10 mL, Topical, As Directed, 30 mL, Refill(s) 6, Apply as needed prior to self dilation, [facility]/pharmacy #[id number], 175, cm, 11/03/22 13:03:00 EST, Height/Length Dosing, 82.8, kg, 11/03/22 13:03:00 EST, Weight Dosing Start Date: 12/01/22 Stop Date: 12/01/22 Status: Ordered Start: 12-01-2022 End: 12-01-2022 Glydo 2% topical gel with ap plicator 11 mL 0.2 gm, 10 mL, Topical, As Directed, 30 mL, Refill(s) 6, Apply as needed prior to self dilation, [facility]/pharmacy #[id number], 175, cm, 11/03/22 13:03:00 EST, Height/Length Dosing, 82.8, kg, 11/03/22 13:03:00 EST, Weight Dosing Start Date: 12/01/22 Stop Date: 12/01/22 Status: Ordered Start: 12-01-2022 End: 12-01-2022 Glydo 2% topical gel with ap plicator 11 mL 0.2 gm, 10 mL, Topical, As Directed, 30 mL, Refill(s) 6, Apply as needed prior to self dilation, [facility]/pharmacy #[id number], 175, cm, 11/03/22 13:03:00 EST, [...] 12:00am March 05, 2024 6:44pm Thyroid (Pork) ([facility] Thyroid) 90 mg tablet (6 sources) Start: 02-27-2020 End: 03-05-2024 take 1 tablet by mouth once daily in the morning Thyroid (Pork) ([facility] Thyroid) 90 mg tablet Discontinued 90 MG [...] 2 12-29-2019 Chronic Deficiency and other anemia (12 sources) Pancytopenia; Translations: [Other pancytopenia] 02-21-2024 Chronic Deficiency and other anemia (16 sources) Other pancytopenia; Translations: [Other pancytopenia] Onset: 4 02-21-2024 Chronic Deficiency and other anemia (14 sources) Anemia; Translations: [Anemia, unspecified] 02-21-2024 Episodic Deficiency and other anemia (16 sources) Anemia, unspecified; Translations: [Anemia, unspecified] Onset: 4 02-21-2024 Episodic Delirium, dementia, and amnestic and other cognitive disorders (12 sources) Alzheimer's disease; Translations: [Alzheimer's disease, unspecified] Onset: 4 03-07-2024 Chronic Diseases of white blood cells (18 sources) Leukopenia; Translations: [Decreased white blood cell [...] PROSTATITIS] Onset: 2 Chronic Maintenance chemotherapy; radiotherapy (11 sources) Patient encounter status; Translations: [Encounter for antineoplastic chemotherapy] Onset: 4 03-07-2024 Chronic Mood disorders (7 sources) Major depressive disorder, single episode, unspecified; Translations: [Mood disorder] Onset: 2 10-22-2023 Chronic Multiple myeloma (16 sources) Multiple myeloma; Translations: [Multiple myeloma not [...] medications] Episodic Other and unspecified benign neoplasm (19 sources) History of polyp of colon; Translations: [...] Translations: [Atrial fibrillation] Episodic Other circulatory disease (10 sources) Low blood pressure; Translations: [Hypotension, unspecified] 03-05-2024 Episodic Other circulatory disease (4 sources) Orthostatic hypotension; Translations: [Orthostatic hypotension] Episodic Other circulatory disease (7 sources) Hypotension, unspecified; Translations: [Hypotension, unspecified] Onset: [...] Episodic Other diseases of kidney and ureters (6 sources) Acute renal insufficiency; Translations: [Disorder of kidney and ureter, unspecified] 02-21-2024 Episodic Other diseases of kidney and ureters (16 sources) Disorder of kidney and ureter, unspecified; [...] Onset: 3 07-31-2023 Chronic Other hematologic conditions (6 sources) Protein level - finding; Translations: [Other specified abnormalities of plasma proteins] 02-21-2024 Episodic Other hematologic conditions (7 sources) Other specified abnormalities of plasma proteins; [...] Episodic Other nutritional; endocrine; and metabolic disorders (6 sources) Hypercalcemia; Translations: [Hypercalcemia] 02-27-2024 Chronic Other nutritional; endocrine; and metabolic disorders (10 sources) Hypercalcemia; Translations: [Hypercalcemia] Onset: 4 03-05-2024 [...] unspecified; Translations: [Pain, unspecified] Onset: 4 Episodic Spondylosis; intervertebral disc disorders; other back problems (5 sources) Spondylosis without myelopathy or radiculopathy, cervical region; Translations: [Lumbar discitis] Onset: 3 Chronic Substance-related disorders (18 sources) Smoker; Translations: [Nicotine dependence, unspecified, uncomplicated] Onset: 3 05-26-2020 Chronic Comment on above: Added secondary to d ocumentation in Social History. Added secondary to d ocumentation in Social History. Syncope (12 sources) Syncope; Translations: [Syncope and collapse] 03-05-2024 [...] Onset: 06-15-2022 11-06-2022 Other aftercare (1 source) terminologist (current) use of anticoagulants; Translations: [DATABASE MODELER CURRNT USE ANTICOAGULANTS] Onset: 09-07-2022 Episodic Other aftercare (1 source) snf (current) use of aspirin; Translations: [DATABASE MODELER CURRENT USE OF ASPIRIN] Onset: 09-07-2022 Episodic Other aftercare (1 source) Other senior care (current) drug therapy; Translations: [OTH DATABASE MODELER CURRENT DRUG THERAPY] Onset: 09-07-2022 Episodic Other [...] [Joint derangement, unspecified] Onset: 07-31-2023 09-11-2023 Episodic Screening and history of mental health and substance abuse codes (20 sources) Ex-smoker; Translations: [Personal history of tobacco use] Onset: 09-07-2022 10-22-2023 Episodic Comment on above: Quit ; Spondylosis; intervertebral disc disorders; other back problems (1 source) Radiculopathy, cervical region; Translations: [RADICULOPATHY CERVICAL REGION] Onset: 02-21-2022 Episodic Unclassified (5 sources) Onset: 08-22-2023 08-22-2023 Results Test Name Value Interpretation Reference Range Facility Alanine aminotransferase [En zymatic activity/volume] in Serum or PlasmaOrdered By: Bertha Cuevas on 04-01-2024 ALT [Catalytic activity/Vol] 9 U/L 7-52 [facility] Albumin [Mass/volume] in Ser um or Plasma by Bromocresol green (BCG) dye binding methoOrdered By: Bertha Cuevas on 04-01-2024 Albumin BCG dye [Mass/Vol] 3.2 g/dL Low 3.5-5.7 [facility] Alkaline phosphatase [Enzyma tic activity/volume] in Serum or PlasmaOrdered By: Bertha Cuevas on 04-01-2024 ALP [Catalytic activity/Vol] 73 U/L 34-104 [facility] Anisocytosis LM Ql (Bld)Orde red By: Bertha Cuevas on 04-01-2024 Anisocytosis Ql (Bld) Slight Fir [facility] Aspartate aminotransferase [ Enzymatic activity/volume] in Serum or PlasmaOrdered By: Bertha Cuevas on 04-01-2024 AST [Catalytic activity/Vol] 8 U/L Low 13-39 [facility] Basophils Auto (Bld) [#/Vol] Ordered By: Bertha Cuevas on 04-01-2024 Basophils (Bld) [#/Vol] 0.0 10*3/uL 0.0-0.2 [facility] Basophils/100 WBC Auto (Bld) Ordered By: Bertha Cuevas on 04-01-2024 Basophils/100 WBC (Bld) 0.8 % . [facility] Bilirubin.total [Mass/volume ] in Serum or PlasmaOrdered By: Bertha Cuevas on 04-01-2024 Bilirubin [Mass/Vol] 0.5 mg/dL 0.3-1.0 [facility] Calcium [Mass/volume] in Ser um or PlasmaOrdered By: artem Cuevas on 04-01-2024 Calcium [Mass/Vol] 9.0 mg/dL 8.6-10.3 [facility] Carbon dioxide, total [Moles /volume] in Serum or PlasmaOrdered By: Bertha Pearce on 04-01-2024 CO2 [Moles/Vol] 23.1 mmol/L 21.0-31.0 [facility] Chloride [Moles/volume] in S dustin or PlasmaOrdered By: Bertha Cuevas on 04-01-2024 Chloride [Moles/Vol] 101 mmol/L 98-107 [facility] Creatinine [Mass/volume] in Serum or PlasmaOrdered By: Bertha Cuevas on 04-01-2024 Creatinine [Mass/Vol] 1.13 mg/dL 0.70-1.30 [facility] Eosinophils Auto (Bld) [#/Vo l]Ordered By: Bertha Cuevas on 04-01-2024 Eosinophils (Bld) [#/Vol] 0.1 10*3/uL 0.0-0.45 [facility] Eosinophils/100 WBC Auto (Bl d)Ordered By: artem Cuevas on 04-01-2024 Eosinophils/100 WBC (Bld) 9.2 % . [facility] Erythrocyte distribution wid th Auto (RBC) [Ratio]Ordered By: Bertha Cuevas on 04-01-2024 Erythrocyte distribution width (RBC) [Ratio] 21.3 % High 12.0-14.8 [facility] Globulin Calc (S) [Mass/Vol] Ordered By: Bertha Cuevas on 04-01-2024 Globulin (S) [Mass/Vol] 5.6 g/dL [facility] Glucose [Mass/volume] in Ser um or PlasmaOrdered By: Bertha Cuevas on 04-01-2024 Glucose [Mass/Vol] 158 mg/dL High 70-100 [facility] Comment on above: ADA recommended refe rence rangeRandom Glucose Reference Range is dependent on time and content of last meal. Glucose of more than 200 mg/dL in a nonstressed, ambulatory subject supports the diagnosis of Diabetes Mellitus. Hematocrit Auto (Bld) [Volum e fraction]Ordered By: Bertha Cuevas on 04-01-2024 Hematocrit (Bld) [Volume fraction] 24.0 % Low 38.8-50.0 [facility] Hemoglobin [Mass/volume] in BloodOrdered By: Bertha Cuevas on 04-01-2024 Hemoglobin (Bld) [Mass/Vol] 8.3 g/dL Low 13.0-17.0 [facility] Leukocytes [#/volume] correc myrtle for nucleated erythrocytes in Blood by Automated counOrdered By: Bertha Cuevas on 04-01-2024 WBC corrected for nucl RBC Auto (Bld) [#/Vol] 1.5 10*3/uL Low 4.1-10.5 [facility] Lymphocytes Auto (Bld) [#/Vo l]Ordered By: Bertha Cuevas on 04-01-2024 Lymphocytes (Bld) [#/Vol] 0.5 10*3/uL Low 1.00-4.8 [facility] Lymphocytes/100 WBC Auto (Bl d)Ordered By: Bertha Cuevas on 04-01-2024 Lymphocytes/100 WBC (Bld) 31.3 % . [facility] MCH Auto (RBC) [Entitic mass ]Ordered By: Bertha Cuevas on 04-01-2024 MCH (RBC) [Entitic mass] 33.8 pg 27.5-35.2 [facility] MCHC Auto (RBC) [Mass/Vol]Or dered By: Bertha Cuevas on 04-01-2024 MCHC (RBC) [Mass/Vol] 34.6 g/dL 32.5-35.6 [facility] MCV Auto (RBC) [Entitic vol] Ordered By: Bertha Cuevas on 04-01-2024 MCV (RBC) [Entitic vol] 97.5 fL 83.5-101 [facility] Macrocytes LM Ql (Bld)Ordere d By: Bertha Cuevas on 04-01-2024 Macrocytes Ql (Bld) Slight [facility] Monocytes Auto (Bld) [#/Vol] Ordered By: Bertha Cuevas on 04-01-2024 Monocytes (Bld) [#/Vol] 0.0 10*3/uL 0.0-0.8 [facility] Monocytes/100 WBC Auto (Bld) Ordered By: Bertha Cuevas on 04-01-2024 Monocytes/100 WBC (Bld) 0.5 % . [facility] Neutrophils Auto (Bld) [#/Vo l]Ordered By: Bertha Cuevas on 04-01-2024 Neutrophils (Bld) [#/Vol] 0.9 10*3/uL Low 1.8-7.7 [facility] Neutrophils/100 WBC Auto (Bl d)Ordered By: Bertha Cuevas on 04-01-2024 Neutrophils/100 WBC (Bld) 58.2 % . [facility] No Panel InformationOrdered By: Bertha Cuevas on 04-01-2024 Estimated GFR (CKD-EPI) > 60.0 mL/Min [facility] Creatinine Clearance (Chem 55.61 [facility] Nucleated erythrocytes [Pres ence] in Blood by Automated countOrdered By: Bertha Cuevas on 04-01-2024 Nucleated RBC Auto Ql (Bld) 0.3 /100{WBC} 0-0.5 [facility] Platelet adequacy [Presence] in Blood by Light microscopyOrdered By: Bertha Pearce on 04-01-2024 Platelets LM Ql (Bld) Decreased Normal [facility] Platelet mean volume Auto (B ld) [Entitic vol]Ordered By: Bertha Cuevas on 04-01-2024 Platelet mean volume (Bld) [Entitic vol] 7.9 fL 6.6-10.1 [facility] Platelet morphology finding [Identifier] in BloodOrdered By: Bertha Cuevas on 04-01-2024 Platelet morphology finding Nom (Bld) Normal Normal [facility] Platelets Auto (Bld) [#/Vol] Ordered By: Bertha Cuevas on 04-01-2024 Platelets (Bld) [#/Vol] 51 10*3/uL Low 150-450 [facility] Potassium [Moles/volume] in Serum or PlasmaOrdered By: Bertha Cuevas on 04-01-2024 Potassium [Moles/Vol] 3.9 mmol/L 3.5-5.1 [facility] Protein [Mass/volume] in Ser um or PlasmaOrdered By: Bertha Dye-Portia on 04-01-2024 Protein [Mass/Vol] 8.8 g/dL 6.4-8.9 [facility] RBC Auto (Bld) [#/Vol]Ordere d By: Bertha Dye-Portia on 04-01-2024 RBC (Bld) [#/Vol] 2.46 10*6/uL Low 3.90-5.60 [facility] RBC morphologyOrdered By: Endy Dye-Portia on 04-01-2024 RBC morphology finding Nom (Bld) N/A [facility] Serum or plasma albumin/glob ulin mass ratioOrdered By: Bertha Cuevas on 04-01-2024 Albumin/Globulin [Mass ratio] 0.6 {ratio} [facility] Serum or plasma anion gap de terminationOrdered By: Bertha Dye-Portia on 04-01-2024 Anion gap [Moles/Vol] 14.8 mmol/L 6.0-15.0 [facility] Sodium [Moles/volume] in Ser um or PlasmaOrdered By: Bertha Dye-Portia on 04-01-2024 Sodium [Moles/Vol] 135 mmol/L Low 136-145 [facility] Urea nitrogen [Mass/volume] in Serum or PlasmaOrdered By: Bertha Lockhartjaime on 04-01-2024 Urea nitrogen [Mass/Vol] 22 mg/dL 7-25 [facility] WBC Auto (Bld) [#/Vol]Ordere d By: Bertha Cuevas on 04-01-2024 WBC (Bld) [#/Vol] 1.5 10*3/uL Low 4.1-10.5 [facility] Comprehensive Metabolic Pane melvin 03-28-2024 Albumin [Mass/Vol] 2.8 g/dL Low 3.5-5.7 [facility] Comment on above: Performed By: #### P TT, BMP, HS TROP, PT, CK, BNP, DIFF CBC #### [address] Albumin/Globulin [Mass ratio] 0.6 {ratio} Normal [facility] Comment on above: Performed By: #### P TT, BMP, HS TROP, PT, CK, BNP, DIFF CBC #### [address] ALP [Catalytic activity/Vol] 61 U/L Normal 34-104 [facility] Comment on above: Performed By: #### P TT, BMP, HS TROP, PT, CK, BNP, DIFF CBC #### [address] ALT [Catalytic activity/Vol] 10 U/L Normal 7-52 [facility] Comment on above: Performed By: #### P TT, BMP, HS TROP, PT, CK, BNP, DIFF CBC #### [address] Anion gap [Moles/Vol] 14.8 mmol/L Normal 6.0-15.0 [facility] Comment on above: Performed By: #### P TT, BMP, HS TROP, PT, CK, BNP, DIFF CBC #### [address] AST [Catalytic activity/Vol] 9 U/L Low 13-39 [facility] Comment on above: Performed By: #### P TT, BMP, HS TROP, PT, CK, BNP, DIFF CBC #### [address] Bilirubin [Mass/Vol] 0.5 mg/dL Normal 0.3-1.0 [facility] Comment on above: Performed By: #### P TT, BMP, HS TROP, PT, CK, BNP, DIFF CBC #### [address] Calcium [Mass/Vol] 8.0 mg/dL Low 8.6-10.3 [facility] Comment on above: Performed By: #### P TT, BMP, HS TROP, PT, CK, BNP, DIFF CBC #### [address] Chloride [Moles/Vol] 103 mmol/L Normal 98-107 [facility] Comment on above: Performed By: #### P TT, BMP, HS TROP, PT, CK, BNP, DIFF CBC #### [address] CO2 [Moles/Vol] 21.5 mmol/L Normal 21.0-31.0 [facility] Comment on above: Performed By: #### P TT, BMP, HS TROP, PT, CK, BNP, DIFF CBC #### [address] Creatinine [Mass/Vol] 0.94 mg/dL Normal 0.70-1.30 [facility] Comment on above: Performed By: #### P TT, BMP, HS TROP, PT, CK, BNP, DIFF CBC #### [address] Creatinine Clr Calc Pharmacy 66.86 Normal [facility] Comment on above: Result Comment: PERF ORMED BY: [place] [address] PATHOLOGIST BILINGUAL OPERATOR OTTO HARLEY M.D. Performed By: #### P TT, BMP, HS TROP, PT, CK, BNP, DIFF CBC #### [address] GFR/1.73 sq M.predicted MDRD (S/P/Bld) [Vol rate/Area] mL/min/{1.73_m2} Normal [facility] Comment on above: Performed By: #### P TT, BMP, HS TROP, PT, CK, BNP, DIFF CBC #### [address] Globulin (S) [Mass/Vol] 4.9 g/dL Normal [facility] Comment on above: Performed By: #### P TT, BMP, HS TROP, PT, CK, BNP, DIFF CBC #### [address] Glucose [Mass/Vol] 82 mg/dL Normal 70-100 [facility] Comment on above: Result Comment: [place] Glucose Reference Range is dependent on time and content of last meal. Glucose of more than 200 mg/dL in a nonstressed, ambulatory subject supports the diagnosis of Diabetes Mellitus. ADA recommended reference range Performed By: #### P TT, BMP, HS TROP, PT, CK, BNP, DIFF CBC #### [address] Potassium [Moles/Vol] 4.3 mmol/L Normal 3.5-5.1 [facility] Comment on above: Result Comment: Hemo lysis is present at a level that could interfere with the result. Contact lab if redraw is required Performed By: #### P TT, BMP, HS TROP, PT, CK, BNP, DIFF CBC #### [address] Protein [Mass/Vol] 7.7 g/dL Normal 6.4-8.9 [facility] Comment on above: Performed By: #### P TT, BMP, HS TROP, PT, CK, BNP, DIFF CBC #### [address] Sodium [Moles/Vol] 135 mmol/L Low 136-145 [facility] Comment on above: Performed By: #### P TT, BMP, HS TROP, PT, CK, BNP, DIFF CBC #### [address] Urea nitrogen [Mass/Vol] 19 mg/dL Normal 7-25 [facility] Comment on above: Performed By: #### P TT, BMP, HS TROP, PT, CK, BNP, DIFF CBC #### [place] [id number] [facility] Glucose Poct GlucometersOrde red By: Bertha Cuevas on 03-28-2024 Glucose [Mass/Vol] 87 mg/dL [facility] Comment on above: Result Comment: [place] Glucose Reference Range is dependent on time and content of last meal. Glucose of more than 200 mg/dL in a nonstressed, ambulatory subject supports the diagnosis of Diabetes Mellitus. PERFORMED BY: [place] [address] PATHOLOGIST BILINGUAL OPERATOR OTTO HARLEY M.D. Performed By: #### P TT, BMP, HS TROP, PT, CK, BNP, DIFF CBC #### [address] Random Glucose Refer ence Range is dependent on time and content of last meal. Glucose of more than 200 mg/dL in a nonstressed, ambulatory subject supports the diagnosis of Diabetes Mellitus. PET tumor init tx strat wbon 03-28-2024 PET tumor init tx strat wb [facility] [place] [address] [place] [address] Nuclear Medicine Report Signed Patient: Neil Wilcox MR#: [id number] : 1945 Acct:[id number] Age/Sex: 78 / M ADM Date: 03/28/24 Loc: Room: [facility] Attending Dr: Bertha Cuevas MD Copies to: Saman Wylie Jr, DO Bertha Cuevas MD Ordering Provider: Bertha Cuevas MD Date of Service: 03/28/24 PET/PET tumor init tx strat wb: staging PET/CT FUSION IMAGING CLINICAL INFORMATION: Multiple myeloma COMPARISON : Bone survey 03/05/2024 TECHNIQUE: Noncontrasted CT scan from the base of the skull to the feet followed by PET imaging. Multiplanar PET/CT fusion images. Blood Glucose : 83 mg/dL The F-18 FDG 12.75mCi. FINDINGS: Neck: No abnormal activity. Chest:No abnormal activity. Abdomen/pelvis: No abnormal activity. Soft tissue/bones: No abnormal activity. CT findings: Trace bilateral pleural effusions. No pericardial effusion. No free air or free fluid. Cystic changes involving the kidneys. PET/PET tumor init tx strat wb IMPRESSION: Negative PET CT. Trace bilateral pleural effusions. Impression dictated by: Saman Wylie Jr., ShabanaODeidre03/28/2024 1:30 PM Dictation Location: [place] [address] Transcribed By: [facility] 03/28/24 1330 Dictated By: Saman Wylie Jr, DO 03/28/24 1251 Signed By: 03/28/24 1330 Normal [facility] Poikilocytosis [Presence] in Blood by Light microscopyOrdered By: Bertha Cuevas on 03-28-2024 Poikilocytosis LM Ql (Bld) Slight [facility] Scan and CBCon 03-28-2024 Anisocytosis Ql (Bld) Slight Normal [facility] Comment on above: Performed By: #### P TT, BMP, HS TROP, PT, CK, BNP, DIFF CBC #### [facility] [address] [place] [address] [place] Basophils (Bld) [#/Vol] 0.0 10*3/uL Normal 0.0-0.2 [facility] Comment on above: Performed By: #### P TT, BMP, HS TROP, PT, CK, BNP, DIFF CBC #### [facility] [address] [place] [address] [place] Basophils/100 WBC (Bld) 0.4 % Normal . [facility] Comment on above: Performed By: #### P TT, BMP, HS TROP, PT, CK, BNP, DIFF CBC #### [facility] [address] [place] [id number] [place] Eosinophils (Bld) [#/Vol] 0.1 10*3/uL Normal 0.0-0.45 [facility] Comment on above: Performed By: #### P TT, BMP, HS TROP, PT, CK, BNP, DIFF CBC #### [address] Eosinophils/100 WBC (Bld) 5.2 % Normal . [facility] Comment on above: Performed By: #### P TT, BMP, HS TROP, PT, CK, BNP, DIFF CBC #### [address] Erythrocyte distribution width (RBC) [Ratio] 21.1 % High 12.0-14.8 [facility] Comment on above: Performed By: #### P TT, BMP, HS TROP, PT, CK, BNP, DIFF CBC #### [address] Hematocrit (Bld) [Volume fraction] 23.4 % Low 38.8-50.0 [facility] Comment on above: Performed By: #### P TT, BMP, HS TROP, PT, CK, BNP, DIFF CBC #### [address] Hemoglobin (Bld) [Mass/Vol] 8.1 g/dL Low 13.0-17.0 [facility] Comment on above: Performed By: #### P TT, BMP, HS TROP, PT, CK, BNP, DIFF CBC #### [address] Lymphocytes (Bld) [#/Vol] 0.4 10*3/uL Low 1.00-4.8 [facility] Comment on above: Performed By: #### P TT, BMP, HS TROP, PT, CK, BNP, DIFF CBC #### [address] Lymphocytes/100 WBC (Bld) 44.8 % Normal . [facility] Comment on above: Performed By: #### P TT, BMP, HS TROP, PT, CK, BNP, DIFF CBC #### [address] Macrocytosis Slight Normal [facility] Comment on above: Performed By: #### P TT, BMP, HS TROP, PT, CK, BNP, DIFF CBC #### [address] MCH (RBC) [Entitic mass] 33.9 pg Normal 27.5-35.2 [facility] Comment on above: Performed By: #### P TT, BMP, HS TROP, PT, CK, BNP, DIFF CBC #### [address] MCV (RBC) [Entitic vol] 97.9 fL Normal 83.5-101 [facility] Comment on above: Performed By: #### P TT, BMP, HS TROP, PT, CK, BNP, DIFF CBC #### [address] Mean Corpuscular HGB Conc 34.6 g/dL Normal 32.5-35.6 [facility] Comment on above: Performed By: #### P TT, BMP, HS TROP, PT, CK, BNP, DIFF CBC #### [address] Monocytes (Bld) [#/Vol] 0.0 10*3/uL Normal 0.0-0.8 [facility] Comment on above: Performed By: #### P TT, BMP, HS TROP, PT, CK, BNP, DIFF CBC #### [address] Monocytes/100 WBC (Bld) 0.7 % Normal . [facility] Comment on above: Performed By: #### P TT, BMP, HS TROP, PT, CK, BNP, DIFF CBC #### [address] Neutrophils (Bld) [#/Vol] 0.5 10*3/uL Low 1.8-7.7 [facility] Comment on above: Performed By: #### P TT, BMP, HS TROP, PT, CK, BNP, DIFF CBC #### [address] Neutrophils/100 WBC (Bld) 48.9 % Normal . [facility] Comment on above: Performed By: #### P TT, BMP, HS TROP, PT, CK, BNP, DIFF CBC #### [address] NRBC% 0.7 /100{WBC} High 0-0.5 [facility] Comment on above: Performed By: #### P TT, BMP, HS TROP, PT, CK, BNP, DIFF CBC #### [address] Platelet Estimate Decreased Normal Normal [facility] Comment on above: Performed By: #### P TT, BMP, HS TROP, PT, CK, BNP, DIFF CBC #### [address] Platelet mean volume (Bld) [Entitic vol] 7.8 fL Normal 6.6-10.1 [facility] Comment on above: Performed By: #### P TT, BMP, HS TROP, PT, CK, BNP, DIFF CBC #### [address] Platelet Morphology Normal Normal Normal [facility] Comment on above: Result Comment: PERF ORMED BY: [place] [address] PATHOLOGIST BILINGUAL OPERATOR OTTO HARLEY M.D. Performed By: #### P TT, BMP, HS TROP, PT, CK, BNP, DIFF CBC #### [address] Platelets (Bld) [#/Vol] 37 10*3/uL Off scale low 150-450 [facility] Comment on above: Result Comment: Crit ical value result called at 0840 on 03/28/24 Performed By: #### P TT, BMP, HS TROP, PT, CK, BNP, DIFF CBC #### [address] Poikilocytosis Slight Normal [facility] Comment on above: Performed By: #### P TT, BMP, HS TROP, PT, CK, BNP, DIFF CBC #### [address] RBC (Bld) [#/Vol] 2.40 10*6/uL Low 3.90-5.60 [facility] Comment on above: Performed By: #### P TT, BMP, HS TROP, PT, CK, BNP, DIFF CBC #### [address] Schistocytes Slight Normal [facility] Comment on above: Performed By: #### P TT, BMP, HS TROP, PT, CK, BNP, DIFF CBC #### [address] WBC (Bld) [#/Vol] 1.0 10*3/uL Low 4.1-10.5 [facility] Comment on above: Performed By: #### P TT, BMP, HS TROP, PT, CK, BNP, DIFF CBC #### [address] Schistocytes [Presence] in B lood by Light microscopyOrdered By: Bertha Cuevas on 03-28-2024 Schistocytes LM Ql (Bld) Slight [facility] Comprehensive Metabolic Pane melvin 03-20-2024 Albumin [Mass/Vol] 3.0 g/dL Low 3.5-5.7 [facility] Comment on above: Performed By: #### P TT, BMP, HS TROP, PT, CK, BNP, DIFF CBC #### [address] Albumin/Globulin [Mass ratio] 0.5 {ratio} Normal [facility] Comment on above: Performed By: #### P TT, BMP, HS TROP, PT, CK, BNP, DIFF CBC #### [address] ALP [Catalytic activity/Vol] 63 U/L Normal 34-104 [facility] Comment on above: Performed By: #### P TT, BMP, HS TROP, PT, CK, BNP, DIFF CBC #### [address] ALT [Catalytic activity/Vol] 10 U/L Normal 7-52 [facility] Comment on above: Performed By: #### P TT, BMP, HS TROP, PT, CK, BNP, DIFF CBC #### [address] Anion gap [Moles/Vol] Not performed Normal 6.0-15.0 [facility] Comment on above: Performed By: #### P TT, BMP, HS TROP, PT, CK, BNP, DIFF CBC #### [address] Aspartate Amino Transferase Normal 13-39 [facility] Comment on above: Result Comment: Spec imen hemolyzed, redraw requested Performed By: #### P TT, BMP, HS TROP, PT, CK, BNP, DIFF CBC #### [address] Bilirubin [Mass/Vol] 0.4 mg/dL Normal 0.3-1.0 [facility] Comment on above: Performed By: #### P TT, BMP, HS TROP, PT, CK, BNP, DIFF CBC #### [address] Calcium [Mass/Vol] 9.0 mg/dL Normal 8.6-10.3 [facility] Comment on above: Performed By: #### P TT, BMP, HS TROP, PT, CK, BNP, DIFF CBC #### [address] Chloride [Moles/Vol] 103 mmol/L Normal 98-107 [facility] Comment on above: Performed By: #### P TT, BMP, HS TROP, PT, CK, BNP, DIFF CBC #### [address] CO2 [Moles/Vol] 24.1 mmol/L Normal 21.0-31.0 [facility] Comment on above: Performed By: #### P TT, BMP, HS TROP, PT, CK, BNP, DIFF CBC #### [address] Creatinine [Mass/Vol] 1.18 mg/dL Normal 0.70-1.30 [facility] Comment on above: Performed By: #### P TT, BMP, HS TROP, PT, CK, BNP, DIFF CBC #### [address] Creatinine Clr Calc Pharmacy 53.26 Normal [facility] Comment on above: Result Comment: PERF ORMED BY: [place] [address] PATHOLOGIST BILINGUAL OPERATOR OTTO HARLEY M.D. Performed By: #### P TT, BMP, HS TROP, PT, CK, BNP, DIFF CBC #### [address] GFR/1.73 sq M.predicted MDRD (S/P/Bld) [Vol rate/Area] mL/min/{1.73_m2} Normal [facility] Comment on above: Performed By: #### P TT, BMP, HS TROP, PT, CK, BNP, DIFF CBC #### [address] Globulin (S) [Mass/Vol] 5.7 g/dL Normal [facility] Comment on above: Performed By: #### P TT, BMP, HS TROP, PT, CK, BNP, DIFF CBC #### [address] Glucose [Mass/Vol] 103 mg/dL High 70-100 [facility] Comment on above: Result Comment: [place] Glucose Reference Range is dependent on time and content of last meal. Glucose of more than 200 mg/dL in a nonstressed, ambulatory subject supports the diagnosis of Diabetes Mellitus. ADA recommended reference range Performed By: #### P TT, BMP, HS TROP, PT, CK, BNP, DIFF CBC #### [address] Potassium Normal 3.5-5.1 [facility] Comment on above: Result Comment: Spec imen hemolyzed, redraw requested Performed By: #### P TT, BMP, HS TROP, PT, CK, BNP, DIFF CBC #### [address] Protein [Mass/Vol] 8.7 g/dL Normal 6.4-8.9 [facility] Comment on above: Performed By: #### P TT, BMP, HS TROP, PT, CK, BNP, DIFF CBC #### [address] Sodium [Moles/Vol] 136 mmol/L Normal 136-145 [facility] Comment on above: Performed By: #### P TT, BMP, HS TROP, PT, CK, BNP, DIFF CBC #### [address] Urea nitrogen [Mass/Vol] 19 mg/dL Normal 7-25 [facility] Comment on above: Performed By: #### P TT, BMP, HS TROP, PT, CK, BNP, DIFF CBC #### [address] Daratumumab Molecular Genoty peon 03-20-2024 Daratumumab Molecular Genotype Normal [facility] Comment on above: Result Comment: Sent to [facility] for further testing. Final report to follow. PERFORMED BY: [place] [address] PATHOLOGIST BILINGUAL OPERATOR OTTO HARLEY M.D. Diff and CBCon 03-20-2024 Anisocytosis Ql (Bld) Slight Normal [facility] Comment on above: Performed By: #### P TT, BMP, HS TROP, PT, CK, BNP, DIFF CBC #### [address] Erythrocyte distribution width (RBC) [Ratio] 20.6 % High 12.0-14.8 [facility] Comment on above: Performed By: #### P TT, BMP, HS TROP, PT, CK, BNP, DIFF CBC #### [address] Giant Platelet Tally 1 /100{WBC} Normal [facility] Comment on above: Performed By: #### P TT, BMP, HS TROP, PT, CK, BNP, DIFF CBC #### [address] Hematocrit (Bld) [Volume fraction] 26.3 % Low 38.8-50.0 [facility] Comment on above: Performed By: #### P TT, BMP, HS TROP, PT, CK, BNP, DIFF CBC #### [address] Hemoglobin (Bld) [Mass/Vol] 9.1 g/dL Low 13.0-17.0 [facility] Comment on above: Performed By: #### P TT, BMP, HS TROP, PT, CK, BNP, DIFF CBC #### [address] MCH (RBC) [Entitic mass] 34.1 pg Normal 27.5-35.2 [facility] Comment on above: Performed By: #### P TT, BMP, HS TROP, PT, CK, BNP, DIFF CBC #### [address] MCV (RBC) [Entitic vol] 98.6 fL Normal 83.5-101 [facility] Comment on above: Performed By: #### P TT, BMP, HS TROP, PT, CK, BNP, DIFF CBC #### [address] Mean Corpuscular HGB Conc 34.6 g/dL Normal 32.5-35.6 [facility] Comment on above: Performed By: #### P TT, BMP, HS TROP, PT, CK, BNP, DIFF CBC #### [address] Platelet Estimate Decreased Normal Normal [facility] Comment on above: Performed By: #### P TT, BMP, HS TROP, PT, CK, BNP, DIFF CBC #### [address] Platelet mean volume (Bld) [Entitic vol] 8.5 fL Normal 6.6-10.1 [facility] Comment on above: Result Comment: PERF ORMED BY: [place] [address] PATHOLOGIST BILINGUAL OPERATOR OTTO HARLEY M.D. Performed By: #### P TT, BMP, HS TROP, PT, CK, BNP, DIFF CBC #### [address] Platelet Morphology Normal Normal Normal [facility] Comment on above: Result Comment: PERF ORMED BY: [place] [address] PATHOLOGIST BILINGUAL OPERATOR OTTO HARLEY M.D. Performed By: #### P TT, BMP, HS TROP, PT, CK, BNP, DIFF CBC #### [address] Platelets (Bld) [#/Vol] 81 10*3/uL Low 150-450 [facility] Comment on above: Performed By: #### P TT, BMP, HS TROP, PT, CK, BNP, DIFF CBC #### [address] Poikilocytosis Slight Normal [facility] Comment on above: Performed By: #### P TT, BMP, HS TROP, PT, CK, BNP, DIFF CBC #### [address] Polychromasia Slight Normal [facility] Comment on above: Performed By: #### P TT, BMP, HS TROP, PT, CK, BNP, DIFF CBC #### [address] RBC (Bld) [#/Vol] 2.67 10*6/uL Low 3.90-5.60 [facility] Comment on above: Performed By: #### P TT, BMP, HS TROP, PT, CK, BNP, DIFF CBC #### [address] Reactive Lymphocytes 1 % Normal 0-12 [facility] Comment on above: Performed By: #### P TT, BMP, HS TROP, PT, CK, BNP, DIFF CBC #### [place] [address] [place] Rouleaux Slight Normal [facility] Comment on above: Performed By: #### P TT, BMP, HS TROP, PT, CK, BNP, DIFF CBC #### [address] WBC (Bld) [#/Vol] 1.8 10*3/uL Low 4.1-10.5 [facility] Comment on above: Performed By: #### P TT, BMP, HS TROP, PT, CK, BNP, DIFF CBC #### [address] Diff and CBCOrdered By: Bertha Cuevas on 03-20-2024 Band form neutrophils/100 WBC (Bld) 2 % 0-5 [facility] Comment on above: Performed By: #### P TT, BMP, HS TROP, PT, CK, BNP, DIFF CBC #### [address] Eosinophils/100 WBC (Bld) 5 % High 1-3 [facility] Comment on above: Performed By: #### P TT, BMP, HS TROP, PT, CK, BNP, DIFF CBC #### [address] Lymphocytes/100 WBC (Bld) 63 % High 18-42 [facility] Comment on above: Performed By: #### P TT, BMP, HS TROP, PT, CK, BNP, DIFF CBC #### [address] Segmented neutrophils/100 WBC (Bld) 30 % Low 50-70 [facility] Comment on above: Performed By: #### P TT, BMP, HS TROP, PT, CK, BNP, DIFF CBC #### [place] [address] [place] Giant platelets/100 leukocyt es [Ratio] in Blood by Manual countOrdered By: Bertha Cuevas on 03-20-2024 Giant platelets/100 WBC Manual cnt (Bld) [Ratio] 1 /100{WBC} [facility] Monocytes/100 WBC Manual cnt (Bld)Ordered By: Bertha Cuveas on 03-20-2024 Monocytes/100 WBC (Bld) N/A [facility] Polychromasia [Presence] in Blood by Light microscopyOrdered By: Bertha Cuevas on 03-20-2024 Polychromasia LM Ql (Bld) Slight [facility] Rouleaux detectionOrdered By : Bertha Cuevas on 03-20-2024 Rouleaux LM Ql (Bld) Slight [facility] Variant lymphocytes/100 WBC Manual cnt (Bld)Ordered By: artem Cuevas on 03-20-2024 Variant lymphocytes/100 WBC (Bld) 1 % 0-12 [facility] Alanine aminotransferase [En zymatic activity/volume] in Serum or PlasmaOrdered By: Vijay Aguilar on 03-09-2024 ALT [Catalytic activity/Vol] 10 U/L 7-52 [facility] Comment on above: Performed By: #### P TT, BMP, HS TROP, PT, CK, BNP, DIFF CBC #### [facility] [address] [place] [address] [place] Albumin [Mass/volume] in Ser um or Plasma by Bromocresol green (BCG) dye binding methoOrdered By: Vijay Aguilar on 03-09-2024 Albumin BCG dye [Mass/Vol] 2.7 g/dL Low 3.5-5.7 [facility] Alkaline phosphatase [Enzyma tic activity/volume] in Serum or PlasmaOrdered By: Vijay Aguilar on 03-09-2024 ALP [Catalytic activity/Vol] 50 U/L 34-104 [facility] Comment on above: Performed By: #### P TT, BMP, HS TROP, PT, CK, BNP, DIFF CBC #### [facility] [address] [place] [address] [place] Anisocytosis [Presence] in B lood by Light microscopyOrdered By: Roslyn Townsend on 03-09-2024 Anisocytosis Ql (Bld) Slight [facility] Comment on above: Performed By: #### P TT, BMP, HS TROP, PT, CK, BNP, DIFF CBC #### [facility] [address] Aspartate aminotransferase [ Enzymatic activity/volume] in Serum or PlasmaOrdered By: Vijay Aguilar on 03-09-2024 AST [Catalytic activity/Vol] 11 U/L Low 13-39 [facility] Comment on above: Performed By: #### P TT, BMP, HS TROP, PT, CK, BNP, DIFF CBC #### [facility] [address] Basophils Auto (Bld) [#/Vol] Ordered By: Roslyn Townsend on 03-09-2024 Basophils (Bld) [#/Vol] N/A [facility] Basophils/100 WBC Auto (Bld) Ordered By: Roslyn Townsend on 03-09-2024 Basophils/100 WBC (Bld) N/A [facility] Basophils/100 leukocytes in Blood by Manual countOrdered By: Roslyn Townsend on 03-09-2024 Basophils/100 WBC (Bld) 0 % 0-2 [facility] Comment on above: Performed By: #### P TT, BMP, HS TROP, PT, CK, BNP, DIFF CBC #### [address] Bilirubin.total [Mass/volume ] in Serum or PlasmaOrdered By: Vijay Aguilar on 03-09-2024 Bilirubin [Mass/Vol] 0.5 mg/dL 0.3-1.0 [facility] Comment on above: Performed By: #### P TT, BMP, HS TROP, PT, CK, BNP, DIFF CBC #### [address] Calcium [Mass/volume] in Ser um or PlasmaOrdered By: Vijay Aguilar on 03-09-2024 Calcium [Mass/Vol] 7.7 mg/dL Low 8.6-10.3 [facility] Comment on above: Performed By: #### P TT, BMP, HS TROP, PT, CK, BNP, DIFF CBC #### [facility] [address] [place] [address] [place] Carbon dioxide, total [Moles /volume] in Serum or PlasmaOrdered By: Vijay Aguilar on 03-09-2024 CO2 [Moles/Vol] 19.1 mmol/L Low 21.0-31.0 [facility] Comment on above: Performed By: #### P TT, BMP, HS TROP, PT, CK, BNP, DIFF CBC #### [facility] [address] Chloride [Moles/volume] in S dustin or PlasmaOrdered By: Vijay Lauren on 03-09-2024 Chloride [Moles/Vol] 107 mmol/L 98-107 [facility] Comment on above: Performed By: #### P TT, BMP, HS TROP, PT, CK, BNP, DIFF CBC #### [facility] [address] Comprehensive Metabolic Pane melvin 03-09-2024 Albumin [Mass/Vol] 2.7 g/dL Low 3.5-5.7 [facility] Comment on above: Performed By: #### P TT, BMP, HS TROP, PT, CK, BNP, DIFF CBC #### [facility] [address] Creatinine Clr Calc Pharmacy 59.85 Normal [facility] Comment on above: Performed By: #### P TT, BMP, HS TROP, PT, CK, BNP, DIFF CBC #### [facility] [address] GFR/1.73 sq M.predicted MDRD (S/P/Bld) [Vol rate/Area] mL/min/{1.73_m2} Normal [facility] Comment on above: Performed By: #### P TT, BMP, HS TROP, PT, CK, BNP, DIFF CBC #### [facility] [address] Creatinine [Mass/volume] in Serum or PlasmaOrdered By: Vijay Aguilar on 03-09-2024 Creatinine [Mass/Vol] 1.05 mg/dL 0.70-1.30 [facility] Comment on above: Performed By: #### P TT, BMP, HS TROP, PT, CK, BNP, DIFF CBC #### [address] Diff and CBCon 03-09-2024 Macrocytosis Slight Normal [facility] Comment on above: Performed By: #### P TT, BMP, HS TROP, PT, CK, BNP, DIFF CBC #### [address] Mean Corpuscular HGB Conc 35.4 g/dL Normal 32.5-35.6 [facility] Comment on above: Performed By: #### P TT, BMP, HS TROP, PT, CK, BNP, DIFF CBC #### [address] [address] Other Cell Type 5 % High 0-0 [facility] Comment on above: Result Comment: PLAS MACYTOID LYMPHOCYTE Performed By: #### P TT, BMP, HS TROP, PT, CK, BNP, DIFF CBC #### [address] Platelet Estimate Decreased Normal Normal [facility] Comment on above: Performed By: #### P TT, BMP, HS TROP, PT, CK, BNP, DIFF CBC #### [address] Platelet Morphology Normal Normal Normal [facility] Comment on above: Result Comment: PERF ORMED BY: [place] [address] PATHOLOGIST BILINGUAL OPERATOR OTTO HARLEY M.D. Performed By: #### P TT, BMP, HS TROP, PT, CK, BNP, DIFF CBC #### [address] Poikilocytosis Slight Normal [facility] Comment on above: Performed By: #### P TT, BMP, HS TROP, PT, CK, BNP, DIFF CBC #### [address] Rouleaux Moderate Normal [facility] Comment on above: Performed By: #### P TT, BMP, HS TROP, PT, CK, BNP, DIFF CBC #### [facility] [address] Eosinophils Auto (Bld) [#/Vo l]Ordered By: Roslyn Townsend on 03-09-2024 Eosinophils (Bld) [#/Vol] N/A [facility] Eosinophils/100 WBC Auto (Bl d)Ordered By: Roslyn Townsend on 03-09-2024 Eosinophils/100 WBC (Bld) N/A [facility] Eosinophils/100 leukocytes i n Blood by Manual countOrdered By: Roslyn Townsend on 03-09-2024 Eosinophils/100 WBC (Bld) 3 % 1-3 [facility] Comment on above: Performed By: #### P TT, BMP, HS TROP, PT, CK, BNP, DIFF CBC #### [facility] [address] [place] [address] Erythrocyte distribution wid th [Ratio] by Automated countOrdered By: Roslyn Townsend on 03-09-2024 Erythrocyte distribution width (RBC) [Ratio] 20.7 % High 12.0-14.8 [facility] Comment on above: Performed By: #### P TT, BMP, HS TROP, PT, CK, BNP, DIFF CBC #### [facility] [address] [place] [address] Erythrocytes [#/volume] in B lood by Automated countOrdered By: Roslyn Townsend on 03-09-2024 RBC (Bld) [#/Vol] 2.68 10*6/uL Low 3.90-5.60 [facility] Comment on above: Performed By: #### P TT, BMP, HS TROP, PT, CK, BNP, DIFF CBC #### [facility] [address] [place] [address] Glucose [Mass/volume] in Ser um or PlasmaOrdered By: Vijay Aguilar on 03-09-2024 Glucose [Mass/Vol] 97 mg/dL 70-100 [facility] Comment on above: ADA recommended refe rence rangeRandom Glucose Reference Range is dependent on time and content of last meal. Glucose of more than 200 mg/dL in a nonstressed, ambulatory subject supports the diagnosis of Diabetes Mellitus. Result Comment: [facility] Glucose Reference Range is dependent on time and content of last meal. Glucose of more than 200 mg/dL in a nonstressed, ambulatory subject supports the diagnosis of Diabetes Mellitus. ADA recommended reference range Performed By: #### P TT, BMP, HS TROP, PT, CK, BNP, DIFF CBC #### [facility] [address] Hematocrit [Volume Fraction] of Blood by Automated countOrdered By: Roslyn Townsend on 03-09-2024 Hematocrit (Bld) [Volume fraction] 26.1 % Low 38.8-50.0 [facility] Comment on above: Performed By: #### P TT, BMP, HS TROP, PT, CK, BNP, DIFF CBC #### [facility] [address] Hemoglobin [Mass/volume] in BloodOrdered By: Roslyn Townsend on 03-09-2024 Hemoglobin (Bld) [Mass/Vol] 9.2 g/dL Low 13.0-17.0 [facility] Comment on above: Performed By: #### P TT, BMP, HS TROP, PT, CK, BNP, DIFF CBC #### [facility] [address] [place] [address] Melvin 03-09-2024 L Specimen: [id number] Re ceived: 03/09/24 Status: URVASHI Req Num: [id number] Spec Type: Impression Subm Dr: Vijay Aguilar MD Tissues: PATHPER Procedures: PATHREVIEW Age/ Patient Sex Location Account Attending Physician Neil Wilcox 78/M 3T [id number] Vijay Aguilar MD SPEC NUM: [id number] RECD: 03/09/24 STATUS: URVASHI REQ NUM: [id number] MOE: 03/09/24- SUBM DR: Vijay Aguilar MD ENTERED: 03/09/[address]: SPEC TYPE: Impression DEPT: SC ORDERED: PATHREVIEW ORDERED: PATHREVIEW Pathologist Review Abnormal [...] partly the cause of progressing pancytopenia CPT: 51077 CBC Date Time Test Result Flag (u) Normal Range 03/06/24 0753 Band 1 0-5 % 03/08/24 0551 Neut % (Auto) 57.3 . % Lymp % (Auto) 38.4 . % Jessamine % (Auto) 1.0 . % Eos % (Auto) 0.1 . % Baso % (Auto) 3.2 . % NRBC% 0.3 0-0.5 /100 WBC Specimen: [id number] Received: 03/09/24 Status: YASSINEDanyelle Miranda Num: [id number] Spec Type: Impression Subm Dr: Vijay Aguilar MD Tissues: PATHPER Procedures: PATHREVIEW Patient: JeriNeil ramirez M [id number] (Continued) Specimen: [id number] Received: 03/09/24-1013 (Continued) CBC (Continued) Signed (signature on file) Chaitanya Paulino MD 03/11/24 1130 Specimen: [id number] Received: 03/09/24-1013 Status: YASSINEDanyelle Miranda Num: [id number] Spec Type: Impression Subm Dr: Vijay Aguilar MD Tissues: PATHPER Procedures: PATHREVIEW Patient: Neil Wilcox [id number] (Continued) Specimen: [id number] Received: 03/09/24-4 (Continued) CBC (Continued) Neut # (Auto) 1.1 L 1.8-7.7 x10E3/uL Lymph # (Auto) 0.7 L 1.00-4.8 x10E3/uL Jessamine # (Auto) 0.0 0.0-0.8 x10E3/uL Eos # [...] 50-70 % Lymph 57 H 18-42 % Jessamine 0 L 2-11 % Eos 3 1-3 % Baso 0 0-2 % Other Cell Type 5 H 0-0 % PLASMACYTOID LYMPHOCYTE Poik Slight Aniso Slight Macro Slight Rouleaux Moderate Plt Est Decreased Normal Plt Morphology Normal Normal Specimen: [id number] Received: 03/09/24-1014 Status: URVASHI Miranda Num: [id number] Spec Type: Devon Valle Dr: Vijay Aguilar MD Tissues: PATHPER Procedures: PATHREVIEW Patient: Neil Wilcox [id number] (Continued) Signed (signature on file) Manuel-Emilio Paulino MD 03/11/24 1130 Normal [facility] Leukocytes [#/volume] correc myrtle for nucleated erythrocytes in Blood by Automated counOrdered By: Roslyn Townsend on 03-09-2024 WBC corrected for nucl RBC Auto (Bld) [#/Vol] 2.8 10*3/uL Low 4.1-10.5 [facility] Leukocytes [#/volume] in Blo od by Automated countOrdered By: Roslyn Townsend on 03-09-2024 WBC (Bld) [#/Vol] 2.8 10*3/uL Low 4.1-10.5 [facility] Comment on above: Performed By: #### P TT, BMP, HS TROP, PT, CK, BNP, DIFF CBC #### [address] Lymphocytes Auto (Bld) [#/Vo l]Ordered By: Roslyn Townsend on 03-09-2024 Lymphocytes (Bld) [#/Vol] N/A [facility] Lymphocytes/100 WBC Auto (Bl d)Ordered By: Roslyn Townsend on 03-09-2024 Lymphocytes/100 WBC (Bld) N/A [facility] Lymphocytes/100 leukocytes i n Blood by Manual countOrdered By: Roslyn Townsend on 03-09-2024 Lymphocytes/100 WBC (Bld) 57 % High 18-42 [facility] Comment on above: Performed By: #### P TT, BMP, HS TROP, PT, CK, BNP, DIFF CBC #### [facility] [address] MCH [Entitic mass] by Automa myrtle countOrdered By: Roslyn Townsend on 03-09-2024 MCH (RBC) [Entitic mass] 34.4 pg 27.5-35.2 [facility] Comment on above: Performed By: #### P TT, BMP, HS TROP, PT, CK, BNP, DIFF CBC #### [facility] [address] [place] [address] MCHC Auto (RBC) [Mass/Vol]Or dered By: Roslyn Townsend on 03-09-2024 MCHC (RBC) [Mass/Vol] 35.4 g/dL 32.5-35.6 [facility] MCV [Entitic volume] by Auto mated countOrdered By: Roslyn Townsend on 03-09-2024 MCV (RBC) [Entitic vol] 97.2 fL 83.5-101 [facility] Comment on above: Performed By: #### P TT, BMP, HS TROP, PT, CK, BNP, DIFF CBC #### [facility] [address] [place] [address] Macrocytes LM Ql (Bld)Ordere d By: Roslyn Townsend on 03-09-2024 Macrocytes Ql (Bld) Slight [facility] Magnesium [Mass/volume] in S dustin or PlasmaOrdered By: Vijay Aguilar on 03-09-2024 Magnesium [Mass/Vol] 1.7 mg/dL Low 1.9-2.7 [facility] Comment on above: Result Comment: PERF ORMED BY: [place] [address] PATHOLOGIST BILINGUAL OPERATOR OTTO HARLEY M.D. Performed By: #### P TT, BMP, HS TROP, PT, CK, BNP, DIFF CBC #### [facility] [address] [place] [address] Manual blood segmented neutr ophils/100 leukocytesOrdered By: Roslyn Townsend on 03-09-2024 Segmented neutrophils/100 WBC (Bld) 35 % Low 50-70 [facility] Comment on above: Performed By: #### P TT, BMP, HS TROP, PT, CK, BNP, DIFF CBC #### [facility] [address] [place] [address] Monocytes Auto (Bld) [#/Vol] Ordered By: Roslyn Townsend on 03-09-2024 Monocytes (Bld) [#/Vol] N/A [facility] Monocytes/100 WBC Auto (Bld) Ordered By: Roslyn Townsend on 03-09-2024 Monocytes/100 WBC (Bld) N/A [facility] Monocytes/100 leukocytes in Blood by Manual countOrdered By: Roslyn Townsend on 03-09-2024 Monocytes/100 WBC (Bld) 0 % Low 2-11 [facility] Comment on above: Performed By: #### P TT, BMP, HS TROP, PT, CK, BNP, DIFF CBC #### [facility] [address] [place] [address] Neutrophils Auto (Bld) [#/Vo l]Ordered By: Roslyn Townsend on 03-09-2024 Neutrophils (Bld) [#/Vol] N/A [facility] Neutrophils/100 WBC Auto (Bl d)Ordered By: Roslyn Townsend on 03-09-2024 Neutrophils/100 WBC (Bld) N/A [facility] No Panel InformationOrdered By: Vijay Aguilar on 03-09-2024 Estimated GFR (CKD-EPI) > 60.0 mL/Min [facility] Creatinine Clearance (Chem 59.85 [facility] Nucleated erythrocytes [Pres ence] in Blood by Automated countOrdered By: Roslyn Townsend on 03-09-2024 Nucleated RBC Auto Ql (Bld) N/A [facility] Platelet adequacy [Presence] in Blood by Light microscopyOrdered By: Roslyn Townsend on 03-09-2024 Platelets LM Ql (Bld) Decreased Normal [facility] Platelet mean volume [Entiti c volume] in Blood by Automated countOrdered By: Roslyn Townsend on 03-09-2024 Platelet mean volume (Bld) [Entitic vol] 7.4 fL 6.6-10.1 [facility] Comment on above: Performed By: #### P TT, BMP, HS TROP, PT, CK, BNP, DIFF CBC #### [facility] [address] Platelet morphology finding [Identifier] in BloodOrdered By: Roslyn Townsend on 03-09-2024 Platelet morphology finding Nom (Bld) Normal Normal [facility] Platelets [#/volume] in Bloo d by Automated countOrdered By: Roslyn Townsend on 03-09-2024 Platelets (Bld) [#/Vol] 62 10*3/uL Low 150-450 [facility] Comment on above: Performed By: #### P TT, BMP, HS TROP, PT, CK, BNP, DIFF CBC #### [facility] [address] [place] [address] [place] Poikilocytosis [Presence] in Blood by Light microscopyOrdered By: Roslyn Townsend on 03-09-2024 Poikilocytosis LM Ql (Bld) Slight [facility] Potassium [Moles/volume] in Serum or PlasmaOrdered By: Vijay Aguilar on 03-09-2024 Potassium [Moles/Vol] 3.3 mmol/L Low 3.5-5.1 [facility] Comment on above: Performed By: #### P TT, BMP, HS TROP, PT, CK, BNP, DIFF CBC #### [facility] [address] [place] [address] [place] Protein [Mass/volume] in Ser um or PlasmaOrdered By: Vijay Aguilar on 03-09-2024 Protein [Mass/Vol] 7.8 g/dL 6.4-8.9 [facility] Comment on above: Performed By: #### P TT, BMP, HS TROP, PT, CK, BNP, DIFF CBC #### [facility] [address] [place] [address] RBC morphologyOrdered By: Kathleen Townsend on 03-09-2024 RBC morphology finding Nom (Bld) N/A [facility] Rouleaux detectionOrdered By : Roslyn Townsend on 03-09-2024 Rouleaux LM Ql (Bld) Moderate [facility] Serum globulin measurement b y calculation (mass/volume)Ordered By: Vijay Aguilar on 03-09-2024 Globulin (S) [Mass/Vol] 5.1 g/dL [facility] Comment on above: Performed By: #### P TT, BMP, HS TROP, PT, CK, BNP, DIFF CBC #### [address] Serum or plasma albumin/glob ulin mass ratioOrdered By: Vijay Aguilar on 03-09-2024 Albumin/Globulin [Mass ratio] 0.5 {ratio} [facility] Comment on above: Performed By: #### P TT, BMP, HS TROP, PT, CK, BNP, DIFF CBC #### [address] Serum or plasma anion gap de terminationOrdered By: Vijay Aguilar on 03-09-2024 Anion gap [Moles/Vol] 13.2 mmol/L 6.0-15.0 [facility] Comment on above: Performed By: #### P TT, BMP, HS TROP, PT, CK, BNP, DIFF CBC #### [address] Sodium [Moles/volume] in Ser um or PlasmaOrdered By: Vijay Aguilar on 03-09-2024 Sodium [Moles/Vol] 136 mmol/L 136-145 [facility] Comment on above: Performed By: #### P TT, BMP, HS TROP, PT, CK, BNP, DIFF CBC #### [address] Urea nitrogen [Mass/volume] in Serum or PlasmaOrdered By: Vijay Aguilar on 03-09-2024 Urea nitrogen [Mass/Vol] 18 mg/dL 7-25 [facility] Comment on above: Performed By: #### P TT, BMP, HS TROP, PT, CK, BNP, DIFF CBC #### [address] WBC other/100 WBC Manual cnt (Bld)Ordered By: Roslyn Townsend on 03-09-2024 WBC other/100 WBC (Bld) 5 % High 0-0 [facility] Comment on above: PLASMACYTOID LYMPHOC YTE Basic Metabolic Panelon 02-22 Anion gap [Moles/Vol] 13.2 mmol/L Normal 6.0-15.0 [facility] Comment on above: Performed By: #### P TT, BMP, HS TROP, PT, CK, BNP, DIFF CBC #### [address] Calcium [Mass/Vol] 7.9 mg/dL Low 8.6-10.3 [facility] Comment on above: Performed By: #### P TT, BMP, HS TROP, PT, CK, BNP, DIFF CBC #### [address] Chloride [Moles/Vol] 106 mmol/L Normal 98-107 [facility] Comment on above: Performed By: #### P TT, BMP, HS TROP, PT, CK, BNP, DIFF CBC #### [address] CO2 [Moles/Vol] 18.6 mmol/L Low 21.0-31.0 [facility] Comment on above: Performed By: #### P TT, BMP, HS TROP, PT, CK, BNP, DIFF CBC #### [address] Creatinine [Mass/Vol] 1.01 mg/dL Normal 0.70-1.30 [facility] Comment on above: Performed By: #### P TT, BMP, HS TROP, PT, CK, BNP, DIFF CBC #### [place] [address] [place] Creatinine Clr Calc Pharmacy 62.22 Normal [facility] Comment on above: Result Comment: PERF ORMED BY: [place] [address] PATHOLOGIST BILINGUAL OPERATOR OTTO HARLEY M.D. Performed By: #### P TT, BMP, HS TROP, PT, CK, BNP, DIFF CBC #### [place] [address] [place] GFR/1.73 sq M.predicted MDRD (S/P/Bld) [Vol rate/Area] mL/min/{1.73_m2} Normal [facility] Comment on above: Performed By: #### P TT, BMP, HS TROP, PT, CK, BNP, DIFF CBC #### [place] [address] [place] Glucose [Mass/Vol] 136 mg/dL High 70-100 [facility] Comment on above: Result Comment: [facility] Glucose Reference Range is dependent on time and content of last meal. Glucose of more than 200 mg/dL in a nonstressed, ambulatory subject supports the diagnosis of Diabetes Mellitus. ADA recommended reference range Performed By: #### P TT, BMP, HS TROP, PT, CK, BNP, DIFF CBC #### [place] [address] [place] Potassium [Moles/Vol] 3.8 mmol/L Normal 3.5-5.1 [facility] Comment on above: Performed By: #### P TT, BMP, HS TROP, PT, CK, BNP, DIFF CBC #### [place] [address] [place] Sodium [Moles/Vol] 134 mmol/L Low 136-145 [facility] Comment on above: Performed By: #### P TT, BMP, HS TROP, PT, CK, BNP, DIFF CBC #### [place] [address] [place] Urea nitrogen [Mass/Vol] 21 mg/dL Normal 7-25 [facility] Comment on above: Performed By: #### P TT, BMP, HS TROP, PT, CK, BNP, DIFF CBC #### [address] Complete Blood Count Auto Di ffon 03-08-2024 Basophils (Bld) [#/Vol] 0.1 10*3/uL Normal 0.0-0.2 [facility] Comment on above: Result Comment: PERF ORMED BY: [place] [address] PATHOLOGIST BILINGUAL OPERATOR OTTO HARLEY M.D. Performed By: #### P TT, BMP, HS TROP, PT, CK, BNP, DIFF CBC #### [address] Basophils/100 WBC (Bld) 3.2 % Normal . [facility] Comment on above: Performed By: #### P TT, BMP, HS TROP, PT, CK, BNP, DIFF CBC #### [address] Eosinophils (Bld) [#/Vol] 0.0 10*3/uL Normal 0.0-0.45 [facility] Comment on above: Performed By: #### P TT, BMP, HS TROP, PT, CK, BNP, DIFF CBC #### [address] Eosinophils/100 WBC (Bld) 0.1 % Normal . [facility] Comment on above: Performed By: #### P TT, BMP, HS TROP, PT, CK, BNP, DIFF CBC #### [address] Erythrocyte distribution width (RBC) [Ratio] 20.9 % High 12.0-14.8 [facility] Comment on above: Performed By: #### P TT, BMP, HS TROP, PT, CK, BNP, DIFF CBC #### [address] Hematocrit (Bld) [Volume fraction] 27.2 % Low 38.8-50.0 [facility] Comment on above: Performed By: #### P TT, BMP, HS TROP, PT, CK, BNP, DIFF CBC #### [address] Hemoglobin (Bld) [Mass/Vol] 9.5 g/dL Low 13.0-17.0 [facility] Comment on above: Performed By: #### P TT, BMP, HS TROP, PT, CK, BNP, DIFF CBC #### [address] Lymphocytes (Bld) [#/Vol] 0.7 10*3/uL Low 1.00-4.8 [facility] Comment on above: Performed By: #### P TT, BMP, HS TROP, PT, CK, BNP, DIFF CBC #### [address] Lymphocytes/100 WBC (Bld) 38.4 % Normal . [facility] Comment on above: Performed By: #### P TT, BMP, HS TROP, PT, CK, BNP, DIFF CBC #### [address] MCH (RBC) [Entitic mass] 33.9 pg Normal 27.5-35.2 [facility] Comment on above: Performed By: #### P TT, BMP, HS TROP, PT, CK, BNP, DIFF CBC #### [address] MCV (RBC) [Entitic vol] 97.4 fL Normal 83.5-101 [facility] Comment on above: Performed By: #### P TT, BMP, HS TROP, PT, CK, BNP, DIFF CBC #### [address] Mean Corpuscular HGB Conc 34.8 g/dL Normal 32.5-35.6 [facility] Comment on above: Performed By: #### P TT, BMP, HS TROP, PT, CK, BNP, DIFF CBC #### [address] Monocytes (Bld) [#/Vol] 0.0 10*3/uL Normal 0.0-0.8 [facility] Comment on above: Performed By: #### P TT, BMP, HS TROP, PT, CK, BNP, DIFF CBC #### [address] Monocytes/100 WBC (Bld) 1.0 % Normal . [facility] Comment on above: Performed By: #### P TT, BMP, HS TROP, PT, CK, BNP, DIFF CBC #### [address] Neutrophils (Bld) [#/Vol] 1.1 10*3/uL Low 1.8-7.7 [facility] Comment on above: Performed By: #### P TT, BMP, HS TROP, PT, CK, BNP, DIFF CBC #### [address] Neutrophils/100 WBC (Bld) 57.3 % Normal . [facility] Comment on above: Performed By: #### P TT, BMP, HS TROP, PT, CK, BNP, DIFF CBC #### [address] NRBC% 0.3 /100{WBC} Normal 0-0.5 [facility] Comment on above: Performed By: #### P TT, BMP, HS TROP, PT, CK, BNP, DIFF CBC #### [address] Platelet mean volume (Bld) [Entitic vol] 7.3 fL Normal 6.6-10.1 [facility] Comment on above: Performed By: #### P TT, BMP, HS TROP, PT, CK, BNP, DIFF CBC #### [address] Platelets (Bld) [#/Vol] 59 10*3/uL Low 150-450 [facility] Comment on above: Performed By: #### P TT, BMP, HS TROP, PT, CK, BNP, DIFF CBC #### [address] RBC (Bld) [#/Vol] 2.79 10*6/uL Low 3.90-5.60 [facility] Comment on above: Performed By: #### P TT, BMP, HS TROP, PT, CK, BNP, DIFF CBC #### [address] WBC (Bld) [#/Vol] 1.8 10*3/uL Low 4.1-10.5 [facility] Comment on above: Performed By: #### P TT, BMP, HS TROP, PT, CK, BNP, DIFF CBC #### [address] Basic Metabolic Panelon 02-22 Anion gap [Moles/Vol] 12.4 mmol/L Normal 6.0-15.0 [facility] Comment on above: Performed By: #### P TT, BMP, HS TROP, PT, CK, BNP, DIFF CBC #### [address] Calcium [Mass/Vol] 8.3 mg/dL Low 8.6-10.3 [facility] Comment on above: Performed By: #### P TT, BMP, HS TROP, PT, CK, BNP, DIFF CBC #### [address] Chloride [Moles/Vol] 107 mmol/L Normal 98-107 [facility] Comment on above: Performed By: #### P TT, BMP, HS TROP, PT, CK, BNP, DIFF CBC #### [address] CO2 [Moles/Vol] 20.5 mmol/L Low 21.0-31.0 [facility] Comment on above: Performed By: #### P TT, BMP, HS TROP, PT, CK, BNP, DIFF CBC #### [address] Creatinine [Mass/Vol] 1.02 mg/dL Normal 0.70-1.30 [facility] Comment on above: Performed By: #### P TT, BMP, HS TROP, PT, CK, BNP, DIFF CBC #### [facility] [address] [place] [address] [place] Creatinine Clr Calc Pharmacy 61.61 Normal [facility] Comment on above: Result Comment: PERF ORMED BY: [place] [address] PATHOLOGIST BILINGUAL OPERATOR OTTO HARLEY M.D. Performed By: #### P TT, BMP, HS TROP, PT, CK, BNP, DIFF CBC #### [place] [address] [place] GFR/1.73 sq M.predicted MDRD (S/P/Bld) [Vol rate/Area] mL/min/{1.73_m2} Normal [facility] Comment on above: Performed By: #### P TT, BMP, HS TROP, PT, CK, BNP, DIFF CBC #### [place] [address] [place] Glucose [Mass/Vol] 92 mg/dL Normal 70-100 [facility] Comment on above: Result Comment: [facility] Glucose Reference Range is dependent on time and content of last meal. Glucose of more than 200 mg/dL in a nonstressed, ambulatory subject supports the diagnosis of Diabetes Mellitus. ADA recommended reference range Performed By: #### P TT, BMP, HS TROP, PT, CK, BNP, DIFF CBC #### [place] [address] [place] Potassium [Moles/Vol] 3.9 mmol/L Normal 3.5-5.1 [facility] Comment on above: Performed By: #### P TT, BMP, HS TROP, PT, CK, BNP, DIFF CBC #### [place] [address] [place] Sodium [Moles/Vol] 136 mmol/L Normal 136-145 [facility] Comment on above: Performed By: #### P TT, BMP, HS TROP, PT, CK, BNP, DIFF CBC #### [place] [address] [place] Urea nitrogen [Mass/Vol] 17 mg/dL Normal 7-25 [facility] Comment on above: Performed By: #### P TT, BMP, HS TROP, PT, CK, BNP, DIFF CBC #### [address] Magnesiumon 03-07-2024 Magnesium [Mass/Vol] 1.6 mg/dL Low 1.9-2.7 [facility] Comment on above: Result Comment: PERF ORMED BY: [place] [address] PATHOLOGIST BILINGUAL OPERATOR OTTO HARLEY M.D. Performed By: #### P TT, BMP, HS TROP, PT, CK, BNP, DIFF CBC #### [address] Scan and CBCon 03-07-2024 Anisocytosis Ql (Bld) Marked Normal [facility] Comment on above: Performed By: #### P TT, BMP, HS TROP, PT, CK, BNP, DIFF CBC #### [address] Basophils (Bld) [#/Vol] 0.0 10*3/uL Normal 0.0-0.2 [facility] Comment on above: Performed By: #### P TT, BMP, HS TROP, PT, CK, BNP, DIFF CBC #### [address] Basophils/100 WBC (Bld) 0.3 % Normal . [facility] Comment on above: Performed By: #### P TT, BMP, HS TROP, PT, CK, BNP, DIFF CBC #### [address] Eosinophils (Bld) [#/Vol] 0.2 10*3/uL Normal 0.0-0.45 [facility] Comment on above: Performed By: #### P TT, BMP, HS TROP, PT, CK, BNP, DIFF CBC #### [address] Eosinophils/100 WBC (Bld) 10.7 % Normal . [facility] Comment on above: Performed By: #### P TT, BMP, HS TROP, PT, CK, BNP, DIFF CBC #### [address] Erythrocyte distribution width (RBC) [Ratio] 21.1 % High 12.0-14.8 [facility] Comment on above: Performed By: #### P TT, BMP, HS TROP, PT, CK, BNP, DIFF CBC #### [address] Hematocrit (Bld) [Volume fraction] 26.4 % Low 38.8-50.0 [facility] Comment on above: Performed By: #### P TT, BMP, HS TROP, PT, CK, BNP, DIFF CBC #### [address] Hemoglobin (Bld) [Mass/Vol] 9.3 g/dL Low 13.0-17.0 [facility] Comment on above: Performed By: #### P TT, BMP, HS TROP, PT, CK, BNP, DIFF CBC #### [address] Lymphocytes (Bld) [#/Vol] 1.0 10*3/uL Normal 1.00-4.8 [facility] Comment on above: Performed By: #### P TT, BMP, HS TROP, PT, CK, BNP, DIFF CBC #### [address] Lymphocytes/100 WBC (Bld) 49.0 % Normal . [facility] Comment on above: Performed By: #### P TT, BMP, HS TROP, PT, CK, BNP, DIFF CBC #### [address] MCH (RBC) [Entitic mass] 34.3 pg Normal 27.5-35.2 [facility] Comment on above: Performed By: #### P TT, BMP, HS TROP, PT, CK, BNP, DIFF CBC #### [address] MCV (RBC) [Entitic vol] 97.4 fL Normal 83.5-101 [facility] Comment on above: Performed By: #### P TT, BMP, HS TROP, PT, CK, BNP, DIFF CBC #### [address] Mean Corpuscular HGB Conc 35.2 g/dL Normal 32.5-35.6 [facility] Comment on above: Performed By: #### P TT, BMP, HS TROP, PT, CK, BNP, DIFF CBC #### [address] Monocytes (Bld) [#/Vol] 0.0 10*3/uL Normal 0.0-0.8 [facility] Comment on above: Performed By: #### P TT, BMP, HS TROP, PT, CK, BNP, DIFF CBC #### [address] Monocytes/100 WBC (Bld) 1.2 % Normal . [facility] Comment on above: Performed By: #### P TT, BMP, HS TROP, PT, CK, BNP, DIFF CBC #### [address] Neutrophils (Bld) [#/Vol] 0.8 10*3/uL Low 1.8-7.7 [facility] Comment on above: Performed By: #### P TT, BMP, HS TROP, PT, CK, BNP, DIFF CBC #### [address] Neutrophils/100 WBC (Bld) 38.8 % Normal . [facility] Comment on above: Performed By: #### P TT, BMP, HS TROP, PT, CK, BNP, DIFF CBC #### [address] NRBC% 0.5 /100{WBC} Normal 0-0.5 [facility] Comment on above: Performed By: #### P TT, BMP, HS TROP, PT, CK, BNP, DIFF CBC #### [address] Platelet Estimate Decreased Normal Normal [facility] Comment on above: Performed By: #### P TT, BMP, HS TROP, PT, CK, BNP, DIFF CBC #### [address] Platelet mean volume (Bld) [Entitic vol] 7.1 fL Normal 6.6-10.1 [facility] Comment on above: Performed By: #### P TT, BMP, HS TROP, PT, CK, BNP, DIFF CBC #### [address] Platelet Morphology Normal Normal Normal [facility] Comment on above: Result Comment: PERF ORMED BY: [place] [address] PATHOLOGIST BILINGUAL OPERATOR OTTO HARLEY M.D. Performed By: #### P TT, BMP, HS TROP, PT, CK, BNP, DIFF CBC #### [address] Platelets (Bld) [#/Vol] 60 10*3/uL Low 150-450 [facility] Comment on above: Performed By: #### P TT, BMP, HS TROP, PT, CK, BNP, DIFF CBC #### [address] RBC (Bld) [#/Vol] 2.71 10*6/uL Low 3.90-5.60 [facility] Comment on above: Performed By: #### P TT, BMP, HS TROP, PT, CK, BNP, DIFF CBC #### [address] Rouleaux Slight Normal [facility] Comment on above: Performed By: #### P TT, BMP, HS TROP, PT, CK, BNP, DIFF CBC #### [address] WBC (Bld) [#/Vol] 2.0 10*3/uL Low 4.1-10.5 [facility] Comment on above: Performed By: #### P TT, BMP, HS TROP, PT, CK, BNP, DIFF CBC #### [address] Basic Metabolic Panelon 06- Anion gap [Moles/Vol] 13.3 mmol/L Normal 6.0-15.0 [facility] Comment on above: Performed By: #### P TT, BMP, HS TROP, PT, CK, BNP, DIFF CBC #### [address] Calcium [Mass/Vol] 8.7 mg/dL Normal 8.6-10.3 [facility] Comment on above: Performed By: #### P TT, BMP, HS TROP, PT, CK, BNP, DIFF CBC #### [address] Chloride [Moles/Vol] 109 mmol/L High 98-107 [facility] Comment on above: Performed By: #### P TT, BMP, HS TROP, PT, CK, BNP, DIFF CBC #### [address] CO2 [Moles/Vol] 20.9 mmol/L Low 21.0-31.0 [facility] Comment on above: Performed By: #### P TT, BMP, HS TROP, PT, CK, BNP, DIFF CBC #### [address] Creatinine [Mass/Vol] 1.32 mg/dL Significan t change up 0.70-1.30 [facility] Comment on above: Performed By: #### P TT, BMP, HS TROP, PT, CK, BNP, DIFF CBC #### [address] Creatinine Clr Calc Pharmacy 47.61 Normal [facility] Comment on above: Result Comment: PERF ORMED BY: [place] [address] PATHOLOGIST BILINGUAL OPERATOR OTTO HARLEY M.D. Performed By: #### P TT, BMP, HS TROP, PT, CK, BNP, DIFF CBC #### [address] GFR/1.73 sq M.predicted MDRD (S/P/Bld) [Vol rate/Area] 55.900 mL/min/{1.73_m2} Normal [facility] Comment on above: Performed By: #### P TT, BMP, HS TROP, PT, CK, BNP, DIFF CBC #### [address] Glucose [Mass/Vol] 91 mg/dL Normal 70-100 [facility] Comment on above: Result Comment: [facility] Glucose Reference Range is dependent on time and content of last meal. Glucose of more than 200 mg/dL in a nonstressed, ambulatory subject supports the diagnosis of Diabetes Mellitus. ADA recommended reference range Performed By: #### P TT, BMP, HS TROP, PT, CK, BNP, DIFF CBC #### [address] Potassium [Moles/Vol] 4.2 mmol/L Normal 3.5-5.1 [facility] Comment on above: Performed By: #### P TT, BMP, HS TROP, PT, CK, BNP, DIFF CBC #### [place] [address] [place] Sodium [Moles/Vol] 139 mmol/L Normal 136-145 [facility] Comment on above: Performed By: #### P TT, BMP, HS TROP, PT, CK, BNP, DIFF CBC #### [place] [address] [place] Urea nitrogen [Mass/Vol] 28 mg/dL High 7-25 [facility] Comment on above: Performed By: #### P TT, BMP, HS TROP, PT, CK, BNP, DIFF CBC #### [place] [address] [place] Diff and CBCon 03-06-2024 Anisocytosis Ql (Bld) Marked Normal [facility] Comment on above: Performed By: #### P TT, BMP, HS TROP, PT, CK, BNP, DIFF CBC #### [place] [address] [place] Eosinophils/100 WBC (Bld) 7 % High 1-3 [facility] Comment on above: Performed By: #### P TT, BMP, HS TROP, PT, CK, BNP, DIFF CBC #### [address] Erythrocyte distribution width (RBC) [Ratio] 21.8 % High 12.0-14.8 [facility] Comment on above: Performed By: #### P TT, BMP, HS TROP, PT, CK, BNP, DIFF CBC #### [address] Hematocrit (Bld) [Volume fraction] 27.3 % Low 38.8-50.0 [facility] Comment on above: Performed By: #### P TT, BMP, HS TROP, PT, CK, BNP, DIFF CBC #### [address] Hemoglobin (Bld) [Mass/Vol] 9.4 g/dL Low 13.0-17.0 [facility] Comment on above: Performed By: #### P TT, BMP, HS TROP, PT, CK, BNP, DIFF CBC #### [address] Lymphocytes/100 WBC (Bld) 65 % High 18-42 [facility] Comment on above: Performed By: #### P TT, BMP, HS TROP, PT, CK, BNP, DIFF CBC #### [address] MCH (RBC) [Entitic mass] 34.0 pg Normal 27.5-35.2 [facility] Comment on above: Performed By: #### P TT, BMP, HS TROP, PT, CK, BNP, DIFF CBC #### [address] MCV (RBC) [Entitic vol] 98.5 fL Normal 83.5-101 [facility] Comment on above: Performed By: #### P TT, BMP, HS TROP, PT, CK, BNP, DIFF CBC #### [address] Mean Corpuscular HGB Conc 34.5 g/dL Normal 32.5-35.6 [facility] Comment on above: Performed By: #### P TT, BMP, HS TROP, PT, CK, BNP, DIFF CBC #### [place] [address] [place] Monocytes/100 WBC (Bld) 1 % Low 2-11 [facility] Comment on above: Performed By: #### P TT, BMP, HS TROP, PT, CK, BNP, DIFF CBC #### [address] Platelet Estimate Decreased Normal Normal [facility] Comment on above: Performed By: #### P TT, BMP, HS TROP, PT, CK, BNP, DIFF CBC #### [address] Platelet mean volume (Bld) [Entitic vol] 6.7 fL Normal 6.6-10.1 [facility] Comment on above: Result Comment: PERF ORMED BY: [place] [address] PATHOLOGIST BILINGUAL OPERATOR OTTO HARLEY M.D. Performed By: #### P TT, BMP, HS TROP, PT, CK, BNP, DIFF CBC #### [address] Platelet Morphology Normal Normal Normal [facility] Comment on above: Result Comment: PERF ORMED BY: [place] [address] PATHOLOGIST BILINGUAL OPERATOR OTTO HARLEY M.D. Performed By: #### P TT, BMP, HS TROP, PT, CK, BNP, DIFF CBC #### [place] [address] [place] Platelets (Bld) [#/Vol] 60 10*3/uL Low 150-450 [facility] Comment on above: Performed By: #### P TT, BMP, HS TROP, PT, CK, BNP, DIFF CBC #### [place] [address] [place] RBC (Bld) [#/Vol] 2.78 10*6/uL Low 3.90-5.60 [facility] Comment on above: Performed By: #### P TT, BMP, HS TROP, PT, CK, BNP, DIFF CBC #### [address] Rouleaux Slight Normal [facility] Comment on above: Performed By: #### P TT, BMP, HS TROP, PT, CK, BNP, DIFF CBC #### [address] Segmented neutrophils/100 WBC (Bld) 26 % Low 50-70 [facility] Comment on above: Performed By: #### P TT, BMP, HS TROP, PT, CK, BNP, DIFF CBC #### [address] WBC (Bld) [#/Vol] 1.9 10*3/uL Low 4.1-10.5 [facility] Comment on above: Performed By: #### P TT, BMP, HS TROP, PT, CK, BNP, DIFF CBC #### [address] Hemoglobin and Hematocriton 03-06-2024 Hematocrit (Bld) [Volume fraction] 26.0 % Low 38.8-50.0 [facility] Comment on above: Result Comment: PERF ORMED BY: [place] [address] PATHOLOGIST BILINGUAL OPERATOR OTTO HARLEY M.D. Performed By: #### P TT, BMP, HS TROP, PT, CK, BNP, DIFF CBC #### [address] Hemoglobin (Bld) [Mass/Vol] 8.9 g/dL Low 13.0-17.0 [facility] Comment on above: Performed By: #### P TT, BMP, HS TROP, PT, CK, BNP, DIFF CBC #### [address] Hematocrit (Bld) [Volume fraction] 26.8 % Low 38.8-50.0 [facility] Comment on above: Result Comment: PERF ORMED BY: [place] [address] PATHOLOGIST BILINGUAL OPERATOR OTTO HARLEY M.D. Performed By: #### P TT, BMP, HS TROP, PT, CK, BNP, DIFF CBC #### [facility] [address] Hemoglobin (Bld) [Mass/Vol] 9.1 g/dL Low 13.0-17.0 [facility] Comment on above: Performed By: #### P TT, BMP, HS TROP, PT, CK, BNP, DIFF CBC #### [facility] [address] Melvin 03-06-2024 L Specimen: BM Re ceived: 03/06/24 Status: SOUT Req Num: [id number] Spec Type: Bone Marro Subm Dr: Bertha [...] Location Account Attending Physician Neil Wilcox 78/M [id number] Vijay Aguilar MD SPEC NUM: RECD: 03/06/24 STATUS: SOUT REQ NUM: [id number] MOE: 03/06/24- DR: Bertha Cuevas MD ENTERED: 03/06/[address] [facility] [address]: SPEC TYPE: Bone Marro DEPT: [...] plasma cell myeloma IgH complex panel from [facility]: -IgH rearrangement to CCND1, FGFR3, MAF, and MAFB are all Not Detected but Atypical Addendum Signed (signature on file) Manuel-Emilio Paulino MD 03/20/241905 Addendum 1 Entered: 03/19/24-1040 Supplemental for findings of Cytogenetics study from [facility]: -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,XY, add(6)(q13),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;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;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 ),+11,+2m Specimen: [id number] Received: 03/06/24 Status: URVASHI Miranda Num: [id number] Spec Type: Bone Kylee Valle Dr: Bertha Cuevas MD Tissues: A Bone Marrow Aspirate (Clot) (LT POST SUP ILIAC) B Bone Marrow Biopsy/Core (LT POST SUP ILIAC) Procedures: Reticulum I, Peripheral Smr, Iron/5, HE/6, Gross/Micro L4/2, Bm Smear/2, CD138/3, CD20, CD3, CD31, CD34, CD56, CD68, CYCLIN D1, E CADHERIN, Decalcification, PAS - Hemat, Bone Marrow TP, GIEMSA STN/8 Patient: Neil Wilcox [id number] (Continued) Specimen: [id number] Received: 03/06/24 (Continued) Supplemental Report (Continued) Signed (signature on file) Chaitanya Paulino MD 03/17/24 1856 Specimen: [id number] Received: 03/06/24 Status: URVASHI Miranda Num: [id number] Spec Type: Bone Kylee Valle Dr: Bertha Cuevas MD Tissues: A Bone Marrow Aspirate (Clot) (LT POST SUP ILIAC) B Bone Marrow Biopsy/Core (LT POST SUP ILIAC) Procedures: Reticulum I, Peripheral Smr, Iron/5, HE/6, Gross/Micro L4/2, Bm Smear/2, CD138/3, CD20, CD3, CD31, CD34, CD56, CD68, CYCLIN D1, E CADHERIN, Decalcification, PAS - Hemat, Bone Marrow TP, GIEMSA STN/8 Patient: Niel Wilcox [id number] (Continued) Specimen: [id number] Received: 03/06/24 (Continued) Supplemental Report (Continued) ar[cp3]/46,XY[18] Addendum Signed (signature on file) Chaitanya Paulino MD 03/19/24 1040 Pathological Diagnosis A [...] (3q) (more content not included)... Normal [facility] Peripheral white blood cell differential % bands, microscopic examOrdered By: Bertha Cuevas on 03-06-2024 Band form neutrophils/100 WBC (Bld) 1 % 0-5 [facility] Comment on above: Performed By: #### P TT, BMP, HS TROP, PT, CK, BNP, DIFF CBC #### [address] ABO/Rh Retypeon 03-05-2024 ABO/RH Recheck Result Positive Normal [facility] Comment on above: Result Comment: PERF ORMED BY: [place] [address] PATHOLOGIST BILINGUAL OPERATOR OTTO HARLEY M.D. Activated partial thrombopla stin [...] coagulation studies. Please contact the laboratory at [phone] for redraw instructions. Alanine aminotransferase [En zymatic activity/volume] in Serum or PlasmaOrdered By: Bertha Cuevas on 03-05-2024 ALT [Catalytic activity/Vol] 10 U/L 7-52 [facility] Comment on above: Performed By: #### C MP ####[address] Albumin [Mass/volume] in Ser um or Plasma by Bromocresol green (BCG) dye binding methoOrdered By: Bertha Cuevas on 03-05-2024 Albumin BCG dye [Mass/Vol] 3.1 g/dL Low 3.5-5.7 [facility] Alkaline phosphatase [Enzyma tic activity/volume] in Serum or PlasmaOrdered By: Bertha Cuevas on 03-05-2024 ALP [Catalytic activity/Vol] 61 U/L 34-104 [facility] Comment on above: Result Comment: PERF ORMED BY: [facility] [address] [place] [address] PATHOLOGIST BILINGUAL OPERATOR OTTO HARLEY M.D. Performed By: #### C MP ####[address] Anisocytosis [Presence] in B lood by Light microscopyOrdered By: Trung Armenta on 03-05-2024 Anisocytosis Ql (Bld) Moderate Normal [facility] Comment on above: Performed By: #### P TT, BMP, HS TROP, PT, CK, BNP, DIFF CBC #### [address] Aspartate aminotransferase [ Enzymatic activity/volume] in Serum or PlasmaOrdered By: Bertha Cuevas on 03-05-2024 AST [Catalytic activity/Vol] 16 U/L 13-39 [facility] Comment on above: Performed By: #### C MP ####[address] Automated epithelial cells c ount in urine sediment (number/area)Ordered By: Trung Armenta on 03-05-2024 Epithelial cells Auto (Urine sed) [#/Area] 0-1 [HPF] 0-2 [facility] BNP ser/plasOrdered By: Trudi Armenta on 03-05-2024 Natriuretic peptide B (Bld) [Mass/Vol] 108.0 pg/mL High 5-100 [facility] Comment on above: Result Comment: PERF ORMED BY: [place] [address] PATHOLOGIST BILINGUAL OPERATOR OTTO HARLEY M.D. Performed By: #### P TT, BMP, HS TROP, PT, CK, BNP, DIFF CBC #### [address] Bacteria [Presence] in Urine by AutomatedOrdered By: Trung Armenta on 03-05-2024 Bacteria Auto Ql (U) None seen [HPF] None Seen [facility] Basic Metabolic Panelon 02-22 Creatinine Clr Calc Pharmacy 28.70 Normal [facility] Comment on above: Result Comment: PERF ORMED BY: [place] [address] PATHOLOGIST BILINGUAL OPERATOR OTTO HARLEY M.D. Performed By: #### P TT, BMP, HS TROP, PT, CK, BNP, DIFF CBC #### [address] GFR/1.73 sq M.predicted MDRD (S/P/Bld) [Vol rate/Area] 30.449 mL/min/{1.73_m2} Normal [facility] Comment on above: Performed By: #### P TT, BMP, HS TROP, PT, CK, BNP, DIFF CBC #### [place] [address] [place] Basophils Auto (Bld) [#/Vol] Ordered By: Trung Armenta on 03-05-2024 Basophils (Bld) [#/Vol] N/A [facility] Basophils Auto (Bld) [#/Vol] Ordered By: Bertha Cuevas on 03-05-2024 Basophils (Bld) [#/Vol] N/A [facility] Basophils/100 WBC Auto (Bld) Ordered By: Trung Armenta on 03-05-2024 Basophils/100 WBC (Bld) N/A [facility] Basophils/100 WBC Auto (Bld) Ordered By: Bertha Cuevas on 03-05-2024 Basophils/100 WBC (Bld) N/A [facility] Basophils/100 leukocytes in Blood by Manual countOrdered By: Trung Armenta on 03-05-2024 Basophils/100 WBC (Bld) 0 % Normal 0-2 [facility] Comment on above: Performed By: #### P TT, BMP, HS TROP, PT, CK, BNP, DIFF CBC #### [facility] [address] Bilirubin Test strip Ql (U)O rdered By: Trung Armenta on 03-05-2024 Bilirubin Ql (U) Negative Negative [facility] Bilirubin.total [Mass/volume ] in Serum or PlasmaOrdered By: Bertha Cuevas on 03-05-2024 Bilirubin [Mass/Vol] 0.4 mg/dL 0.3-1.0 [facility] Comment on above: Performed By: #### C MP ####[place] [address] [place] Calcium [Mass/volume] in Ser um or PlasmaOrdered By: Trung Armenta on 03-05-2024 Calcium [Mass/Vol] 9.9 mg/dL Normal 8.6-10.3 [facility] Comment on above: Performed By: #### P TT, BMP, HS TROP, PT, CK, BNP, DIFF CBC #### [facility] [address] [place] [address] [place] Calcium [Mass/volume] in Ser um or PlasmaOrdered By: Bertha Cuevas on 03-05-2024 Calcium [Mass/Vol] 9.8 mg/dL 8.6-10.3 [facility] Comment on above: Performed By: #### C MP ####[place] [address] [place] Carbon dioxide, total [Moles /volume] in Serum or PlasmaOrdered By: Trung Armenta on 03-05-2024 CO2 [Moles/Vol] 24.0 mmol/L Normal 21.0-31.0 [facility] Comment on above: Performed By: #### P TT, BMP, HS TROP, PT, CK, BNP, DIFF CBC #### [address] Carbon dioxide, total [Moles /volume] in Serum or PlasmaOrdered By: Bertha Pearce on 03-05-2024 CO2 [Moles/Vol] 18.7 mmol/L Low 21.0-31.0 [facility] Comment on above: Performed By: #### C MP ####[address] Chloride [Moles/volume] in S dustin or PlasmaOrdered By: Trung Armenta on 03-05-2024 Chloride [Moles/Vol] 103 mmol/L Normal 98-107 [facility] Comment on above: Performed By: #### P TT, BMP, HS TROP, PT, CK, BNP, DIFF CBC #### [address] Chloride [Moles/volume] in S dustin or PlasmaOrdered By: Bertha Cuevas on 03-05-2024 Chloride [Moles/Vol] 104 mmol/L 98-107 [facility] Comment on above: Performed By: #### C MP ####[address] Color of Urine by AutoOrdere d By: Trung Armenta on 03-05-2024 Color (U) Yellow Yellow [facility] Comment on above: Order Comment: Name Collection Type:: Clean-Voided Midstream Performed By: #### P TT, BMP, HS TROP, PT, CK, BNP, DIFF CBC #### [address] Complete Blood Count Auto Di ffon 03-05-2024 Mean Corpuscular HGB Conc 34.6 g/dL Normal 32.5-35.6 [facility] Comment on above: Order Comment: STAT FOR BX Performed By: #### P TT, BMP, HS TROP, PT, CK, BNP, DIFF CBC #### [address] Comprehensive Metabolic Pane melvin 03-05-2024 Albumin [Mass/Vol] 3.1 g/dL Low 3.5-5.7 [facility] Comment on above: Performed By: #### C MP ####[address] GFR/1.73 sq M.predicted MDRD (S/P/Bld) [Vol rate/Area] 31.659 mL/min/{1.73_m2} Normal [facility] Comment on above: Performed By: #### C MP ####[address] Creatine kinase [Enzymatic a ctivity/volume] in Serum or PlasmaOrdered By: Trung Armenta on 03-05-2024 CK [Catalytic activity/Vol] 60 U/L [facility] Comment on above: Performed By: #### P TT, BMP, HS TROP, PT, CK, BNP, DIFF CBC #### [address] Creatinine [Mass/volume] in Serum or PlasmaOrdered By: Trung Armenta on 03-05-2024 Creatinine [Mass/Vol] 2.19 mg/dL High 0.70-1.30 [facility] Comment on above: Performed By: #### P TT, BMP, HS TROP, PT, CK, BNP, DIFF CBC #### [address] Creatinine [Mass/volume] in Serum or PlasmaOrdered By: Bertha Cuevas on 03-05-2024 Creatinine [Mass/Vol] 2.12 mg/dL High 0.70-1.30 [facility] Comment on above: Performed By: #### C MP ####[place] [address] [place] Diff and CBCon 03-05-2024 Macrocytosis Slight Normal [facility] Comment on above: Performed By: #### P TT, BMP, HS TROP, PT, CK, BNP, DIFF CBC #### [address] Mean Corpuscular HGB Conc 34.4 g/dL Normal 32.5-35.6 [facility] Comment on above: Performed By: #### P TT, BMP, HS TROP, PT, CK, BNP, DIFF CBC #### [address] Monocyte Distribution Width Normal 0.00-20.00 [facility] Comment on above: Result Comment: The predictive value of MDW for identifying sepsis in patients with hematological abnormalities has not been established Performed By: #### P TT, BMP, HS TROP, PT, CK, BNP, DIFF CBC #### [address] Platelet Estimate Decreased Normal Normal [facility] Comment on above: Performed By: #### P TT, BMP, HS TROP, PT, CK, BNP, DIFF CBC #### [address] Platelet Morphology Normal Normal Normal [facility] Comment on above: Result Comment: PERF ORMED BY: [place] [address] PATHOLOGIST BILINGUAL OPERATOR OTTO HARLEY M.D. Performed By: #### P TT, BMP, HS TROP, PT, CK, BNP, DIFF CBC #### [address] Dipstick and Microscopicon 0 03-05-2024 Appearance (U) Clear Normal Clear [facility] Comment on above: Order Comment: Name Collection Type:: Clean-Voided Midstream Performed By: #### P TT, BMP, HS TROP, PT, CK, BNP, DIFF CBC #### [address] Bacteria,Urine None Seen Normal None Seen [facility] Comment on above: Order Comment: Name Collection Type:: Clean-Voided Midstream Performed By: #### P TT, BMP, HS TROP, PT, CK, BNP, DIFF CBC #### [address] Bilirubin,Urine Negative Normal Negative [facility] Comment on above: Order Comment: Name Collection Type:: Clean-Voided Midstream Performed By: #### P TT, BMP, HS TROP, PT, CK, BNP, DIFF CBC #### [address] Glucose Ql (U) Normal Normal Normal [facility] Comment on above: Order Comment: Name Collection Type:: Clean-Voided Midstream Performed By: #### P TT, BMP, HS TROP, PT, CK, BNP, DIFF CBC #### [address] Hyaline Casts,Urine 0-8 Normal 0-8 [facility] Comment on above: Order Comment: Name Collection Type:: Clean-Voided Midstream Result Comment: PERF ORMED BY: [place] [address] PATHOLOGIST BILINGUAL OPERATOR OTTO HARLEY M.D. Performed By: #### P TT, BMP, HS TROP, PT, CK, BNP, DIFF CBC #### [address] Ketones Ql (U) Negative Normal Negative [facility] Comment on above: Order Comment: Name Collection Type:: Clean-Voided Midstream Performed By: #### P TT, BMP, HS TROP, PT, CK, BNP, DIFF CBC #### [address] Leukocyte esterase Test strip Ql (U) Negative Normal Negative [facility] Comment on above: Order Comment: Name Collection Type:: Clean-Voided Midstream Performed By: #### P TT, BMP, HS TROP, PT, CK, BNP, DIFF CBC #### [place] [address] [place] Nitrite,Urine Negative Normal Negative [facility] Comment on above: Order Comment: Name Collection Type:: Clean-Voided Midstream Performed By: #### P TT, BMP, HS TROP, PT, CK, BNP, DIFF CBC #### [address] Occult Blood,Urine Negative Normal Negative [facility] Comment on above: Order Comment: Name Collection Type:: Clean-Voided Midstream Result Comment: PERF ORMED BY: [place] [address] PATHOLOGIST BILINGUAL OPERATOR OTTO HARLEY M.D. Performed By: #### P TT, BMP, HS TROP, PT, CK, BNP, DIFF CBC #### [address] RBC,Urine 1-2 Normal 0-4 [facility] Comment on above: Order Comment: Name Collection Type:: Clean-Voided Midstream Performed By: #### P TT, BMP, HS TROP, PT, CK, BNP, DIFF CBC #### [address] Specificy [place],Urine 1.018 Normal 1.001-1.03 0 [facility] Comment on above: Order Comment: Name Collection Type:: Clean-Voided Midstream Performed By: #### P TT, BMP, HS TROP, PT, CK, BNP, DIFF CBC #### [address] Squamous Epithelial Cell,Urine 0-1 Normal 0-2 [facility] Comment on above: Order Comment: Name Collection Type:: Clean-Voided Midstream Performed By: #### P TT, BMP, HS TROP, PT, CK, BNP, DIFF CBC #### [address] Urobilinogen,Urine Normal Normal Normal [facility] Comment on above: Order Comment: Name Collection Type:: Clean-Voided Midstream Performed By: #### P TT, BMP, HS TROP, PT, CK, BNP, DIFF CBC #### [address] WBC,Urine 3-4 Normal 0-4 [facility] Comment on above: Order Comment: Name Collection Type:: Clean-Voided Midstream Performed By: #### P TT, BMP, HS TROP, PT, CK, BNP, DIFF CBC #### [address] ECG 12 lead ECGon 03-05-2024 ECG 12 lead ECG [facility] [place] [place] [address] Electrocardiograph Report Signed Patient: Neil Wilcox MR#: [id number] : 1945 Acct:[id number] Age/Sex: 78 / M ADM Date: 03/05/24 Loc: ER Room: Type: [facility] ER Attending Dr: Ordering Provider: Trung [...] By Trung Armenta DO 1437 Normal [facility] Eosinophils Auto (Bld) [#/Vo l]Ordered By: Trung Armenta on 03-05-2024 Eosinophils (Bld) [#/Vol] N/A [facility] Eosinophils Auto (Bld) [#/Vo l]Ordered By: Bertha Cuevas on 03-05-2024 Eosinophils (Bld) [#/Vol] N/A [facility] Eosinophils/100 WBC Auto (Bl d)Ordered By: Trung Armenta on 03-05-2024 Eosinophils/100 WBC (Bld) N/A [facility] Eosinophils/100 WBC Auto (Bl d)Ordered By: Bertha Cuevas on 03-05-2024 Eosinophils/100 WBC (Bld) N/A [facility] Eosinophils/100 leukocytes i n Blood by Manual countOrdered By: Trung Armenta on 03-05-2024 Eosinophils/100 WBC (Bld) 10 % High 1-3 [facility] Comment on above: Performed By: #### P TT, BMP, HS TROP, PT, CK, BNP, DIFF CBC #### [address] Erythrocyte distribution wid th [Ratio] by Automated countOrdered By: Trung Armenta on 03-05-2024 Erythrocyte distribution width (RBC) [Ratio] 19.4 % High 12.0-14.8 [facility] Comment on above: Performed By: #### P TT, BMP, HS TROP, PT, CK, BNP, DIFF CBC #### [address] Erythrocyte distribution wid th [Ratio] by Automated countOrdered By: Bertha Pearce on 03-05-2024 Erythrocyte distribution width (RBC) [Ratio] 19.3 % High 12.0-14.8 [facility] Comment on above: Order Comment: STAT FOR BX Performed By: #### P TT, BMP, HS TROP, PT, CK, BNP, DIFF CBC #### [address] Erythrocytes [#/area] in Uri ne sediment by Automated countOrdered By: Trung Armenta on 03-05-2024 RBC Auto (Urine sed) [#/Area] 1-2 [HPF] 0-4 [facility] Erythrocytes [#/volume] in B lood by Automated countOrdered By: Trung Armenta on 03-05-2024 RBC (Bld) [#/Vol] 1.93 10*6/uL Low 3.90-5.60 [facility] Comment on above: Performed By: #### P TT, BMP, HS TROP, PT, CK, BNP, DIFF CBC #### [address] Erythrocytes [#/volume] in B lood by Automated countOrdered By: Bertha Cuevas on 03-05-2024 RBC (Bld) [#/Vol] 2.25 10*6/uL Low 3.90-5.60 [facility] Comment on above: Order Comment: STAT FOR BX Performed By: #### P TT, BMP, HS TROP, PT, CK, BNP, DIFF CBC #### [facility] [address] [place] [address] [place] Glucose [Mass/volume] in Ser um or PlasmaOrdered By: Trung Armenta on 03-05-2024 Glucose [Mass/Vol] 113 mg/dL High 70-100 [facility] Comment on above: ADA recommended refe rence rangeRandom Glucose Reference Range is dependent on time and content of last meal. Glucose of more than 200 mg/dL in a nonstressed, ambulatory subject supports the diagnosis of Diabetes Mellitus. Result Comment: [place] om Glucose Reference Range is dependent on time and content of last meal. Glucose of more than 200 mg/dL in a nonstressed, ambulatory subject supports the diagnosis of Diabetes Mellitus. ADA recommended reference range Performed By: #### P TT, BMP, HS TROP, PT, CK, BNP, DIFF CBC #### [facility] [address] [place] [id number] [place] Glucose [Mass/volume] in Ser um or PlasmaOrdered By: Bertha Cuevas on 03-05-2024 Glucose [Mass/Vol] 110 mg/dL High 70-100 [facility] Comment on above: ADA recommended refe rence rangeRandom Glucose Reference Range is dependent on time and content of last meal. Glucose of more than 200 mg/dL in a nonstressed, ambulatory subject supports the diagnosis of Diabetes Mellitus. Result Comment: [place] Glucose Reference Range is dependent on time and content of last meal. Glucose of more than 200 mg/dL in a nonstressed, ambulatory subject supports the diagnosis of Diabetes Mellitus. ADA recommended reference range Performed By: #### C MP ####[facility] [id number] [place] [id number] [place] Hematocrit [Volume Fraction] of Blood by Automated countOrdered By: Trung Armenta on 03-05-2024 Hematocrit (Bld) [Volume fraction] 20.1 % Low 38.8-50.0 [facility] Comment on above: Performed By: #### P TT, BMP, HS TROP, PT, CK, BNP, DIFF CBC #### [facility] [address] [place] [id number] [place] Hematocrit [Volume Fraction] of Blood by Automated countOrdered By: artem Pearce on 03-05-2024 Hematocrit (Bld) [Volume fraction] 23.5 % Low 38.8-50.0 [facility] Comment on above: Order Comment: STAT FOR BX Performed By: #### P TT, BMP, HS TROP, PT, CK, BNP, DIFF CBC #### [facility] [address] Hemoglobin [Mass/volume] in BloodOrdered By: Trung Armenta on 03-05-2024 Hemoglobin (Bld) [Mass/Vol] 6.9 g/dL Low 13.0-17.0 [facility] Comment on above: Performed By: #### P TT, BMP, HS TROP, PT, CK, BNP, DIFF CBC #### [address] Hemoglobin [Mass/volume] in BloodOrdered By: artem Cuevas on 03-05-2024 Hemoglobin (Bld) [Mass/Vol] 8.1 g/dL Low 13.0-17.0 [facility] Comment on above: Order Comment: STAT FOR BX Performed By: #### P TT, BMP, HS TROP, PT, CK, BNP, DIFF CBC #### [place] [address] [place] Hemoglobin and Hematocriton 03-05-2024 Hematocrit (Bld) [Volume fraction] 24.9 % Low 38.8-50.0 [facility] Comment on above: Result Comment: PERF ORMED BY: [place] [address] PATHOLOGIST BILINGUAL OPERATOR OTTO HARLEY M.D. Performed By: #### H H ####[address] Hemoglobin (Bld) [Mass/Vol] 8.6 g/dL Low 13.0-17.0 [facility] Comment on above: Performed By: #### H H ####[address] INR in Platelet poor plasma by Coagulation assayOrdered By: Trung Armenta on 03-05-2024 INR Coag (PPP) [Relative time] 1.3 {INR} [facility] Comment on above: INR Therapeutic [...] PT, CK, BNP, DIFF CBC #### [address] Ketones Auto test strip (U) [Mass/Vol]Ordered By: Trung Armenta on 03-05-2024 Ketones (U) [Mass/Vol] Negative Negative [facility] - UrinalysisOrder ed By: Trung Armenta on 03-05-2024 Hyaline casts LM Ql (Urine sed) 0-8 [LPF] 0-8 [facility] LeukoReduced RBCon LeukoReduced RBC TRANSFUSED 03/05/24 1636 Normal [facility] Leukocytes [#/area] in Urine sediment by Automated countOrdered By: Trung Armenta on 03-05-2024 WBC Auto (Urine sed) [#/Area] 3-4 [HPF] 0-4 [facility] Leukocytes [#/volume] correc myrtle for nucleated erythrocytes in Blood by Automated counOrdered By: Trung Armenta on 03-05-2024 WBC corrected for nucl RBC Auto (Bld) [#/Vol] 1.6 10*3/uL 4.1-10.5 [facility] Leukocytes [#/volume] correc myrtle for nucleated erythrocytes in Blood by Automated counOrdered By: Bertha Cuevas on 03-05-2024 WBC corrected for nucl RBC Auto (Bld) [#/Vol] 1.5 10*3/uL Low 4.1-10.5 [facility] Leukocytes [#/volume] in Blo od by Automated countOrdered By: Trung Armenta on 03-05-2024 WBC (Bld) [#/Vol] 1.6 10*3/uL Low 4.1-10.5 [facility] Comment on above: Performed By: #### P TT, BMP, HS TROP, PT, CK, BNP, DIFF CBC #### [facility] [address] Leukocytes [#/volume] in Blo od by Automated countOrdered By: Bertha Cuevas on 03-05-2024 WBC (Bld) [#/Vol] 1.5 10*3/uL Low 4.1-10.5 [facility] Comment on above: Order Comment: STAT FOR BX Performed By: #### P TT, BMP, HS TROP, PT, CK, BNP, DIFF CBC #### [facility] [address] Lymphocytes Auto (Bld) [#/Vo l]Ordered By: Trung Armenta on 03-05-2024 Lymphocytes (Bld) [#/Vol] N/A [facility] Lymphocytes Auto (Bld) [#/Vo l]Ordered By: Bertha Cuevas on 03-05-2024 Lymphocytes (Bld) [#/Vol] N/A [facility] Lymphocytes/100 WBC Auto (Bl d)Ordered By: Trung Armenta on 03-05-2024 Lymphocytes/100 WBC (Bld) N/A [facility] Lymphocytes/100 WBC Auto (Bl d)Ordered By: Bertha Cuevas on 03-05-2024 Lymphocytes/100 WBC (Bld) N/A [facility] Lymphocytes/100 leukocytes i n Blood by Manual countOrdered By: Trung Armenta on 03-05-2024 Lymphocytes/100 WBC (Bld) 54 % High 18-42 [facility] Comment on above: Performed By: #### P TT, BMP, HS TROP, PT, CK, BNP, DIFF CBC #### [facility] [address] [place] [address] MCH [Entitic mass] by Automa myrtle countOrdered By: Trung Armenta on 03-05-2024 MCH (RBC) [Entitic mass] 35.9 pg High 27.5-35.2 [facility] Comment on above: Performed By: #### P TT, BMP, HS TROP, PT, CK, BNP, DIFF CBC #### [facility] [address] [place] [address] MCH [Entitic mass] by Automa myrtle countOrdered By: Bertha Cuevas on 03-05-2024 MCH (RBC) [Entitic mass] 36.2 pg High 27.5-35.2 [facility] Comment on above: Order Comment: STAT FOR BX Performed By: #### P TT, BMP, HS TROP, PT, CK, BNP, DIFF CBC #### [address] MCHC Auto (RBC) [Mass/Vol]Or dered By: Trung Armenta on 03-05-2024 MCHC (RBC) [Mass/Vol] 34.4 g/dL 32.5-35.6 [facility] MCHC Auto (RBC) [Mass/Vol]Or dered By: Bertha Cuevas on 03-05-2024 MCHC (RBC) [Mass/Vol] 34.6 g/dL 32.5-35.6 [facility] MCV [Entitic volume] by Auto mated countOrdered By: Trung Armenta on 03-05-2024 MCV (RBC) [Entitic vol] 104.2 fL High 83.5-101 [facility] Comment on above: Performed By: #### P TT, BMP, HS TROP, PT, CK, BNP, DIFF CBC #### [address] MCV [Entitic volume] by Auto mated countOrdered By: Bertha Cuevas on 03-05-2024 MCV (RBC) [Entitic vol] 104.6 fL High 83.5-101 [facility] Comment on above: Order Comment: STAT FOR BX Performed By: #### P TT, BMP, HS TROP, PT, CK, BNP, DIFF CBC #### [facility] [address] [place] [id number] [place] Macrocytes LM Ql (Bld)Ordere d By: Trung Armenta on 03-05-2024 Macrocytes Ql (Bld) Slight [facility] Manual blood segmented neutr ophils/100 leukocytesOrdered By: Trung Armenta on 03-05-2024 Segmented neutrophils/100 WBC (Bld) 31 % Low 50-70 [facility] Comment on above: Performed By: #### P TT, BMP, HS TROP, PT, CK, BNP, DIFF CBC #### [facility] [address] Monocyte distribution width [Entitic volume] in Blood by AutomatedOrdered By: Trung Armenta on 03-05-2024 Monocyte distribution width Auto (Bld) [Entitic vol] See comment 0.00-20.00 [facility] Comment on above: The predictive value of MDW for identifying sepsis in patients with hematological abnormalities has not been established Monocytes Auto (Bld) [#/Vol] Ordered By: Trung Armenta on 03-05-2024 Monocytes (Bld) [#/Vol] N/A [facility] Monocytes Auto (Bld) [#/Vol] Ordered By: Bertha Cuevas on 03-05-2024 Monocytes (Bld) [#/Vol] N/A [facility] Monocytes/100 WBC Auto (Bld) Ordered By: Trung Armenta on 03-05-2024 Monocytes/100 WBC (Bld) N/A [facility] Monocytes/100 WBC Auto (Bld) Ordered By: Bertha Cuevas on 03-05-2024 Monocytes/100 WBC (Bld) N/A [facility] Monocytes/100 leukocytes in Blood by Manual countOrdered By: Trung Armenta on 03-05-2024 Monocytes/100 WBC (Bld) 0 % Low 2-11 [facility] Comment on above: Performed By: #### P TT, BMP, HS TROP, PT, CK, BNP, DIFF CBC #### [facility] [address] Neutrophils Auto (Bld) [#/Vo l]Ordered By: Trung Armenta on 03-05-2024 Neutrophils (Bld) [#/Vol] N/A [facility] Neutrophils Auto (Bld) [#/Vo l]Ordered By: Bertha Cuevas on 03-05-2024 Neutrophils (Bld) [#/Vol] N/A [facility] Neutrophils/100 WBC Auto (Bl d)Ordered By: Trung Armenta on 03-05-2024 Neutrophils/100 WBC (Bld) N/A [facility] Neutrophils/100 WBC Auto (Bl d)Ordered By: Bertha Cuevas on 03-05-2024 Neutrophils/100 WBC (Bld) N/A [facility] Nitrite Test strip Ql (U)Ord ered By: Trung Armenta on 03-05-2024 Nitrite Ql (U) Negative Negative [facility] No Panel InformationOrdered By: Trung Armenta on 03-05-2024 Stool Occult Blood (AMY) [facility] Estimated GFR (CKD-EPI) 30.449 mL/Min [facility] Creatinine Clearance (Chem 28.70 [facility] No Panel InformationOrdered By: Bertha Cuevas on 03-05-2024 Estimated GFR (CKD-EPI) 31.659 mL/Min [facility] Creatinine Clearance (Chem N/A [facility] Nucleated erythrocytes [Pres ence] in Blood by Automated countOrdered By: Trung Armenta on 03-05-2024 Nucleated RBC Auto Ql (Bld) N/A [facility] Nucleated erythrocytes [Pres ence] in Blood by Automated countOrdered By: Bertha Cuevas on 03-05-2024 Nucleated RBC Auto Ql (Bld) N/A [facility] Partial Thromboplastin Timeo n 03-05-2024 aPTT Coag (Bld) [Time] 29.7 s Normal 25.1-36.5 [facility] Comment on above: Result Comment: A he matocrit value greater than 55% may lead to inaccurate results in coagulation testing. Patients having hematocrit values >55% require a special collection tube for coagulation studies. Please contact the laboratory at [phone] for redraw instructions. PERFORMED BY: [place] [address] PATHOLOGIST BILINGUAL OPERATOR OTTO HARLEY M.D. Performed By: #### P TT, BMP, HS TROP, PT, CK, BNP, DIFF CBC #### [address] Peripheral white blood cell differential % bands, microscopic examOrdered By: Trung Armenta on 03-05-2024 Band form neutrophils/100 WBC (Bld) 5 % Normal 0-5 [facility] Comment on above: Performed By: #### P TT, BMP, HS TROP, PT, CK, BNP, DIFF CBC #### [address] Platelet adequacy [Presence] in Blood by Light microscopyOrdered By: Trung Armenta on 03-05-2024 Platelets LM Ql (Bld) Decreased Normal [facility] Platelet mean volume [Entiti c volume] in Blood by Automated countOrdered By: Trung Armenta on 03-05-2024 Platelet mean volume (Bld) [Entitic vol] 7.6 fL Normal 6.6-10.1 [facility] Comment on above: Result Comment: PERF ORMED BY: [place] [address] PATHOLOGIST BILINGUAL OPERATOR OTTO HARLEY M.D. Performed By: #### P TT, BMP, HS TROP, PT, CK, BNP, DIFF CBC #### [address] Platelet mean volume [Entiti c volume] in Blood by Automated countOrdered By: Bertha Cuevas on 03-05-2024 Platelet mean volume (Bld) [Entitic vol] 8.0 fL 6.6-10.1 [facility] Comment on above: Order Comment: STAT FOR BX Result Comment: PERF ORMED BY: [place] [address] PATHOLOGIST BILINGUAL OPERATOR OTTO HARLEY M.D. Performed By: #### P TT, BMP, HS TROP, PT, CK, BNP, DIFF CBC #### [address] Platelet morphology finding [Identifier] in BloodOrdered By: Trung Armenta on 03-05-2024 Platelet morphology finding Nom (Bld) Normal Normal [facility] Platelets [#/volume] in Bloo d by Automated countOrdered By: Trung Armenta on 03-05-2024 Platelets (Bld) [#/Vol] 67 10*3/uL Low 150-450 [facility] Comment on above: Performed By: #### P TT, BMP, HS TROP, PT, CK, BNP, DIFF CBC #### [place] [address] [place] Platelets [#/volume] in Bloo d by Automated countOrdered By: Bertha Cuevas on 03-05-2024 Platelets (Bld) [#/Vol] 78 10*3/uL Low 150-450 [facility] Comment on above: Order Comment: STAT FOR BX Performed By: #### P TT, BMP, HS TROP, PT, CK, BNP, DIFF CBC #### [place] [address] [place] Potassium [Moles/volume] in Serum or PlasmaOrdered By: Trung Armenta on 03-05-2024 Potassium [Moles/Vol] 4.2 mmol/L Normal 3.5-5.1 [facility] Comment on above: Performed By: #### P TT, BMP, HS TROP, PT, CK, BNP, DIFF CBC #### [facility] [address] [place] [address] [place] Potassium [Moles/volume] in Serum or PlasmaOrdered By: Bertha Cuevas on 03-05-2024 Potassium [Moles/Vol] 4.5 mmol/L 3.5-5.1 [facility] Comment on above: Hemolysis is present at a level that could interfere with the result.Contact lab if redraw is required Result Comment: Hemo lysis is present at a level that could interfere with the result. Contact lab if redraw is required Performed By: #### C MP ####[place] [id number] [address] Protein [Mass/volume] in Ser um or PlasmaOrdered By: Bertha Cuevas on 03-05-2024 Protein [Mass/Vol] 9.3 g/dL High 6.4-8.9 [facility] Comment on above: Performed By: #### C MP ####[address] Prothrombin time (PT)Ordered By: Trung Armenta on 03-05-2024 PT Coag (PPP) [Time] 15.0 s High 9.0-12.9 [facility] Comment on above: A hematocrit value g reater than 55% may lead to inaccurate results in coagulation testing. Patients having hematocrit values >55% require a special collection tube for coagulation studies. Please contact the laboratory at [phone] for redraw instructions. Result Comment: A he matocrit value greater than 55% may lead to inaccurate results in coagulation testing. Patients having hematocrit values >55% require a special collection tube for coagulation studies. Please contact the laboratory at [phone] for redraw instructions. Performed By: #### P TT, BMP, HS TROP, PT, CK, BNP, DIFF CBC #### [facility] [address] RBC morphologyOrdered By: Emeka Armenta on 03-05-2024 RBC morphology finding Nom (Bld) N/A [facility] Serum globulin measurement b y calculation (mass/volume)Ordered By: Bertha Pearce on 03-05-2024 Globulin (S) [Mass/Vol] 6.2 g/dL [facility] Comment on above: Performed By: #### C MP ####[address] Serum or plasma albumin/glob ulin mass ratioOrdered By: Bertha Cuevas on 03-05-2024 Albumin/Globulin [Mass ratio] 0.5 {ratio} [facility] Comment on above: Performed By: #### C MP ####[address] Serum or plasma anion gap de terminationOrdered By: Trung Armenta on 03-05-2024 Anion gap [Moles/Vol] 16.2 mmol/L High 6.0-15.0 [facility] Comment on above: Performed By: #### P TT, BMP, HS TROP, PT, CK, BNP, DIFF CBC #### [facility] [address] Serum or plasma anion gap de terminationOrdered By: Bertha Cuevas on 03-05-2024 Anion gap [Moles/Vol] 19.8 mmol/L High 6.0-15.0 [facility] Comment on above: Performed By: #### C MP ####[address] Sodium [Moles/volume] in Ser um or PlasmaOrdered By: Trung Armenta on 03-05-2024 Sodium [Moles/Vol] 139 mmol/L Normal 136-145 [facility] Comment on above: Performed By: #### P TT, BMP, HS TROP, PT, CK, BNP, DIFF CBC #### [facility] [address] Sodium [Moles/volume] in Ser um or PlasmaOrdered By: Bertha Cuevas on 03-05-2024 Sodium [Moles/Vol] 138 mmol/L 136-145 [facility] Comment on above: Performed By: #### C MP ####[address] Specific gravity Auto test s trip (U) [Rel density]Ordered By: Trung Armenta on 03-05-2024 Specific gravity (U) [Rel density] 1.018 1.001-1.03 0 [facility] Stool Occult Bl. Scr. (Guaia c)on 03-05-2024 Stool Occult Bl. Scr. (Guaiac) Occult Blood Negative for Occult Blood by Guaiac Methodology Reference range = Negative PERFORMED BY: [place] [address] PATHOLOGIST BILINGUAL OPERATOR OTTO HARLEY M.D. Normal [facility] Comment on above: Performed By: #### O BS-GUAIAC #### [facility] [address] [place] [address] Troponin I High Sensitivityo n 03-05-2024 Troponin I High Sensitivity 22.3 pg/mL High 0.0-20.0 [facility] Comment on above: Result Comment: PERF ORMED BY: [place] [address] PATHOLOGIST BILINGUAL OPERATOR OTTO HARLEY M.D. Performed By: #### P TT, BMP, HS TROP, PT, CK, BNP, DIFF CBC #### [facility] [address] [place], [place] [id number] [facility] Troponin I.cardiac [Mass/vol ume] in Serum or Plasma by Detection limit <= 0.01 ng/Ordered By: Trung Armenta on 03-05-2024 Troponin I.cardiac DL <= 0.01 ng/mL [Mass/Vol] 22.3 pg/mL High 0.0-20.0 [facility] Type and Screenon 03-05-2024 ABO and Rh group Nom (Bld) Blood group A Rh(D) positive Normal [facility] Comment on above: Order Comment: Trans fuse now? Y Number of units to transfuse now? 2 Result Comment: PERF ORMED BY: [place] [address] PATHOLOGIST BILINGUAL OPERATOR OTTO HARLEY M.D. Urea nitrogen [Mass/volume] in Serum or PlasmaOrdered By: Trung Armenta on 03-05-2024 Urea nitrogen [Mass/Vol] 42 mg/dL High 7-25 [facility] Comment on above: Performed By: #### P TT, BMP, HS TROP, PT, CK, BNP, DIFF CBC #### [facility] [address] Urea nitrogen [Mass/volume] in Serum or PlasmaOrdered By: Bertha Cuevas on 03-05-2024 Urea nitrogen [Mass/Vol] 41 mg/dL High 04-17 [facility] Comment on above: Performed By: #### C MP ####[facility] [address] Urine clarity by refractomet ry automatedOrdered By: Trung Armenta on 03-05-2024 Clarity Refractometry automated (U) Clear Clear [facility] Urine glucose measurement by automated test strip (mass/volume)Ordered By: Trung Armenta on 03-05-2024 Glucose Auto test strip (U) [Mass/Vol] Normal mg/dL Normal [facility] Urine hemoglobin detection b y automated test stripOrdered By: Trung Armenta on 03-05-2024 Hemoglobin Auto test strip Ql (U) Negative Negative [facility] Urine leukocyte esterase det ection by automated test stripOrdered By: Trung Armenta on 03-05-2024 Leukocyte esterase Auto test strip Ql (U) Negative Negative [facility] Urine pH measurement by auto mated test stripOrdered By: Trung Armenta on 03-05-2024 pH (U) 5.5 [pH] 5.0-9.0 [facility] Comment on above: Order Comment: Name Collection Type:: Clean-Voided Midstream Performed By: #### P TT, BMP, HS TROP, PT, CK, BNP, DIFF CBC #### [facility] [address] [place] [address] [place] Urine protein measurement by automated test strip (mass/volume)Ordered By: Trung Armenta on 03-05-2024 Protein (U) [Mass/Vol] 30 mg/dL High Negative [facility] Comment on above: Order Comment: Name Collection Type:: Clean-Voided Midstream Performed By: #### P TT, BMP, HS TROP, PT, CK, BNP, DIFF CBC #### [facility] [address] [place] [id number] [facility] Urobilinogen Auto test strip (U) [Mass/Vol]Ordered By: Trung Armenta on 03-05-2024 Urobilinogen (U) [Mass/Vol] Normal mg/dL Normal [facility] XR bone surveyon 03-05-2024 XR bone survey [facility] Main [address] [address] XRay Report Signed Patient: Neil Wilcox MR#: [id number] : 1945 Acct:[id number] Age/Sex: 78 / M ADM Date: 03/05/24 Loc: Room: [address] [place] [address] Type: ADM IN Attending Dr: Roslyn Townsend [...] Tobias Tracy M.D.03/05/2024 6:02 PM Dictation Location: [place] [address] Transcribed By: [facility] 03/05/241801 Dictated By: Tobias Tracy DO 03/05/241755 Signed By: 03/05/241801 Ray [facility] XR chest 2V*on 03-05-2024 XR chest 2V* [facility] Main [address] [address] XRay Report Signed Patient: Neil Wilcox MR#: [id number] : 1945 Acct:[id number] Age/Sex: 78 / M ADM Date: 03/05/24 Loc: ER Room: Type: [facility] ER Attending Dr: Copies to: Trung [...] Tobias Tracy M.D.03/05/2024 12:34 PM Dictation Location: [place] [address] Transcribed By: [facility] 03/05/24 1234 Dictated By: Tobias Tracy DO 03/05/24 1230 Signed By: 03/05/24 1234 Normal [facility] CAMILA Antinuclear Antibodieson 02-26-2024 Antinuclear Abs, IFA Positive Critically abnormal . [facility] Comment on above: Result Comment: Nega tive <1:80 Borderline 1:80 Positive >1:80 Performed By: #### P TT, BMP, HS TROP, PT, CK, BNP, DIFF CBC #### [facility] [address] [place] [address] [place] Homogeneous Pattern 1:320 High . [facility] Comment on above: Result Comment: ICAP nomenclature: [id number] Performed By: #### P TT, BMP, HS TROP, PT, CK, BNP, DIFF CBC #### [facility] [address] [place] [address] [place] Note 1 Normal . [facility] Comment on above: Result Comment: Yamel bah Potential Disease Association Homogeneous Systemic Lupus Erythematosus, Drug Induced Systemic Lupus Erythematosus, Chronic Autoimmune hepatitis, Juvenile Idiopathic Arthritis Speckled Sjogren Syndrome, Systemic Lupus Erythematosus, Subacute Cutaneous Lupus, Lupus, Congenital Heart Block, Mixed Connective Tissue Disease, Scleroderma-diffuse, Scleroderma-Autoimmune Myositis Overlap Syndrome, Systemic Lupus Wduqwdopcbqls-Xyjtfmkdgep-Rhzudjwjdf Myositis Overlap Syndrome, Systemic Autoimmune Rheumatic Disease, [...] Scleroderma, Antiphospholipid Syndrome Performed at: - [facility] [address] [id number] Vending Machine Filler: J Carlos Blackman PhD, Phone: [phone] Performed By: #### P TT, BMP, HS TROP, PT, CK, BNP, DIFF CBC #### [facility] [address] Absolute reticulocyte countO rdered By: Bertha Cuevas on 02-26-2024 Reticulocytes (Bld) [#/Vol] 0.002 10*6/uL Low 0.024-0.08 4 [facility] Alanine aminotransferase [En zymatic activity/volume] in Serum or PlasmaOrdered By: Bertha Cuevas on 02-26-2024 ALT [Catalytic activity/Vol] 10 U/L Normal 7-52 [facility] Comment on above: Performed By: #### V [id number], FISH NOT BLAD, MARÍA, TSH3, FLOW NEOGENOMIC, CMP, RETIC, CYTOGENE, SCAN CBC, FE and TIBC, T4F, LDH ####[facility] Ral[address]#### PLT AB S, SPE, RA, HBSAG, HIV SCREEN, KAPPA, HBSAB, HCV RX PCR, CAMILA, SADIE, HBCAB, SKIP SERUM, CU ####[facility] , Albumin [Mass/volume] in Ser um or PlasmaOrdered By: Bertha Cuevas on 02-26-2024 Albumin [Mass/Vol] 3.4 g/dL 2.9-4.4 [facility] Comment on above: Performed By: #### P TT, BMP, HS TROP, PT, CK, BNP, DIFF CBC #### [facility] [address] Albumin [Mass/volume] in Ser um or Plasma by Bromocresol green (BCG) dye binding methoOrdered By: Bertha Cuevas on 02-26-2024 Albumin BCG dye [Mass/Vol] 3.5 g/dL 3.5-5.7 [facility] Alkaline phosphatase [Enzyma tic activity/volume] in Serum or PlasmaOrdered By: Bertha Cuevas on 02-26-2024 ALP [Catalytic activity/Vol] 71 U/L Normal 34-104 [facility] Comment on above: Performed By: #### V [id number], FISH NOT BLAD, MARÍA, TSH3, FLOW NEOGENOMIC, CMP, RETIC, CYTOGENE, SCAN CBC, FE and TIBC, T4F, LDH ####[place] [address] [address]#### PLT AB S, SPE, RA, HBSAG, HIV SCREEN, KAPPA, HBSAB, HCV RX PCR, CAMILA, SADIE, HBCAB, SKIP SERUM, CU ####[facility] , Anisocytosis [Presence] in B lood by Light microscopyOrdered By: Bertha Cuevas on 02-26-2024 Anisocytosis Ql (Bld) Marked Normal [facility] Comment on above: Performed By: #### V [id number], FISH NOT BLAD, MARÍA, TSH3, FLOW NEOGENOMIC, CMP, RETIC, CYTOGENE, SCAN CBC, FE and TIBC, T4F, LDH ####[place] [address] [place] [address] [place]#### PLT AB S, SPE, RA, HBSAG, HIV SCREEN, KAPPA, HBSAB, HCV RX PCR, CAMILA, SADIE, HBCAB, SKIP SERUM, CU ####[facility] , Aspartate aminotransferase [ Enzymatic activity/volume] in Serum or PlasmaOrdered By: Bertha Cuevas on 02-26-2024 AST [Catalytic activity/Vol] 12 U/L Low 13-39 [facility] Comment on above: Performed By: #### V [id number], FISH NOT BLAD, MARÍA, TSH3, FLOW NEOGENOMIC, CMP, RETIC, CYTOGENE, SCAN CBC, FE and TIBC, T4F, LDH ####[facility] Tmn[address] [place] [address] [place]#### PLT AB S, SPE, RA, HBSAG, HIV SCREEN, KAPPA, HBSAB, HCV RX PCR, CAMILA, SADIE, HBCAB, SKIP SERUM, CU ####[facility] , Automated basophil %Ordered By: artem Ceuvas on 02-26-2024 Basophils/100 WBC (Bld) 0.2 % Normal . [facility] Comment on above: Performed By: #### V [id number], FISH NOT BLAD, MARÍA, TSH3, FLOW NEOGENOMIC, CMP, RETIC, CYTOGENE, SCAN CBC, FE and TIBC, T4F, LDH ####[facility] [place] [address] [place]#### PLT AB S, SPE, RA, HBSAG, HIV SCREEN, KAPPA, HBSAB, HCV RX PCR, CAMILA, SADIE, HBCAB, SKIP SERUM, CU ####[facility] , Automated basophil countOrde red By: artem Cuevas on 02-26-2024 Basophils (Bld) [#/Vol] 0.0 10*3/uL Normal 0.0-0.2 [facility] Comment on above: Performed By: #### V [id number], FISH NOT BLAD, MARÍA, TSH3, FLOW NEOGENOMIC, CMP, RETIC, CYTOGENE, SCAN CBC, FE and TIBC, T4F, LDH ####[facility] [place] [address] [place]#### PLT AB S, SPE, RA, HBSAG, HIV SCREEN, KAPPA, HBSAB, HCV RX PCR, CAMILA, SADIE, HBCAB, SKIP SERUM, CU ####[facility] , Automated blood monocyte cou ntOrdered By: artem Cuevas on 02-26-2024 Monocytes (Bld) [#/Vol] 0.0 10*3/uL Normal 0.0-0.8 [facility] Comment on above: Performed By: #### V [id number], FISH NOT BLAD, MARÍA, TSH3, FLOW NEOGENOMIC, CMP, RETIC, CYTOGENE, SCAN CBC, FE and TIBC, T4F, LDH ####[address]#### PLT AB S, SPE, RA, HBSAG, HIV SCREEN, KAPPA, HBSAB, HCV RX PCR, CAMILA, SADIE, HBCAB, SKIP SERUM, CU ####[facility] , Automated eosinophil %Ordere d By: Bertha Cuevas on 02-26-2024 Eosinophils/100 WBC (Bld) 10.5 % Normal . [facility] Comment on above: Performed By: #### V [id number], FISH NOT BLAD, MARÍA, TSH3, FLOW NEOGENOMIC, CMP, RETIC, CYTOGENE, SCAN CBC, FE and TIBC, T4F, LDH ####[address]#### PLT AB S, SPE, RA, HBSAG, HIV SCREEN, KAPPA, HBSAB, HCV RX PCR, CAMILA, SADIE, HBCAB, SKIP SERUM, CU ####[facility] , Automated eosinophil countOr dered By: Bertha Cuevas on 02-26-2024 Eosinophils (Bld) [#/Vol] 0.3 10*3/uL Normal 0.0-0.45 [facility] Comment on above: Performed By: #### V [id number], FISH NOT BLAD, MARÍA, TSH3, FLOW NEOGENOMIC, CMP, RETIC, CYTOGENE, SCAN CBC, FE and TIBC, T4F, LDH ####[place] [address] [place]#### PLT AB S, SPE, RA, HBSAG, HIV SCREEN, KAPPA, HBSAB, HCV RX PCR, CAMILA, SADIE, HBCAB, SKIP SERUM, CU ####[facility] , Automated monocyte %Ordered By: Bertha Cuevas on 02-26-2024 Monocytes/100 WBC (Bld) 1.4 % Normal . [facility] Comment on above: Performed By: #### V [id number], FISH NOT BLAD, MARÍA, TSH3, FLOW NEOGENOMIC, CMP, RETIC, CYTOGENE, SCAN CBC, FE and TIBC, T4F, LDH ####[facility] [id number]#### PLT AB S, SPE, RA, HBSAG, HIV SCREEN, KAPPA, HBSAB, HCV RX PCR, ACMILA, SADIE, HBCAB, SKIP SERUM, CU ####[facility] , Automated neutrophil %Ordere d By: Bertha Cuevas on 02-26-2024 Neutrophils/100 WBC (Bld) 44.9 % Normal . [facility] Comment on above: Performed By: #### V [id number], FISH NOT BLAD, MARÍA, TSH3, FLOW NEOGENOMIC, CMP, RETIC, CYTOGENE, SCAN CBC, FE and TIBC, T4F, LDH ####[facility] [place] [address] [place]#### PLT AB S, SPE, RA, HBSAG, HIV SCREEN, KAPPA, HBSAB, HCV RX PCR, CAMILA, SADIE, HBCAB, SKIP SERUM, CU ####[facility] , Basophil percentageOrdered B y: Bertha Cuevas on 02-26-2024 Basophil percentage 109 ug/dL 69-132 [facility] Comment on above: This test was develo ped and its performance characteristicsdetermined by [facility]. It has not been cleared orapproved by the Food and Drug Administration. Detection Limit = 5Performed at: [facility] [address] [id number] Director: Mary Jane Maya MD, Phone: [phone] Bilirubin.total [Mass/volume ] in Serum or PlasmaOrdered By: Bertha Cuevas on 02-26-2024 Bilirubin [Mass/Vol] 0.8 mg/dL Normal 0.3-1.0 [facility] Comment on above: Performed By: #### V [id number], FISH NOT BLAD, MARÍA, TSH3, FLOW NEOGENOMIC, CMP, RETIC, CYTOGENE, SCAN CBC, FE and TIBC, T4F, LDH ####[place] [address] [address]#### PLT AB S, SPE, RA, HBSAG, HIV SCREEN, KAPPA, HBSAB, HCV RX PCR, CAMILA, SADIE, HBCAB, SKIP SERUM, CU ####[facility] , Blood platelet glycoprotein Ib/IX IgG antibody detection by immunoassayOrdered By: artem Cuevas on 02-26-2024 Platelet glycoprotein Ib/Ix IgG IA Ql (Bld) Negative Negative [facility] Calcium [Mass/volume] in Ser um or PlasmaOrdered By: artem [facility] Centerlara on 02-26-2024 Calcium [Mass/Vol] 12.1 mg/dL High 8.6-10.3 [facility] Comment on above: Performed By: #### V [id number], FISH NOT BLAD, MARÍA, TSH3, FLOW NEOGENOMIC, CMP, RETIC, CYTOGENE, SCAN CBC, FE and TIBC, T4F, LDH ####[place] [address] [place]#### PLT AB S, SPE, RA, HBSAG, HIV SCREEN, KAPPA, HBSAB, HCV RX PCR, CAMILA, SADIE, HBCAB, SKIP SERUM, CU ####[facility] , Carbon dioxide, total [Moles /volume] in Serum or PlasmaOrdered By: artem Pearce on 02-26-2024 CO2 [Moles/Vol] 25.2 mmol/L Normal 21.0-31.0 [facility] Comment on above: Performed By: #### V [id number], FISH NOT BLAD, MARÍA, TSH3, FLOW NEOGENOMIC, CMP, RETIC, CYTOGENE, SCAN CBC, FE and TIBC, T4F, LDH ####[place] [address] [place]#### PLT AB S, SPE, RA, HBSAG, HIV SCREEN, KAPPA, HBSAB, HCV RX PCR, CAMILA, SADIE, HBCAB, SKIP SERUM, CU ####[facility] , Chloride [Moles/volume] in S dustin or PlasmaOrdered By: Bertha Cuevas on 02-26-2024 Chloride [Moles/Vol] 104 mmol/L Normal 98-107 [facility] Comment on above: Performed By: #### V [id number], FISH NOT BLAD, MARÍA, TSH3, FLOW NEOGENOMIC, CMP, RETIC, CYTOGENE, SCAN CBC, FE and TIBC, T4F, LDH ####[place] [address] [place] [address] [place]#### PLT AB S, SPE, RA, HBSAG, HIV SCREEN, KAPPA, HBSAB, HCV RX PCR, CAMILA, SADIE, HBCAB, SKIP SERUM, CU ####[facility] , Comprehensive Metabolic Pane melvin 02-26-2024 Albumin [Mass/Vol] 3.5 g/dL Normal 3.5-5.7 [facility] Comment on above: Performed By: #### V [id number], FISH NOT BLAD, MARÍA, TSH3, FLOW NEOGENOMIC, CMP, RETIC, CYTOGENE, SCAN CBC, FE and TIBC, T4F, LDH ####[place] [address] [place] [address] [place]#### PLT AB S, SPE, RA, HBSAG, HIV SCREEN, KAPPA, HBSAB, HCV RX PCR, CAMILA, SADIE, HBCAB, SKIP SERUM, CU ####[facility] , Creatinine Clr Calc Pharmacy 43.64 Normal [facility] Comment on above: Performed By: #### V [id number], FISH NOT BLAD, MARÍA, TSH3, FLOW NEOGENOMIC, CMP, RETIC, CYTOGENE, SCAN CBC, FE and TIBC, T4F, LDH ####[place] [address] [place] [address] [place]#### PLT AB S, SPE, RA, HBSAG, HIV SCREEN, KAPPA, HBSAB, HCV RX PCR, CAMILA, SADIE, HBCAB, SKIP SERUM, CU ####[facility] , GFR/1.73 sq M.predicted MDRD (S/P/Bld) [Vol rate/Area] 50.358 mL/min/{1.73_m2} Normal [facility] Comment on above: Performed By: #### V [id number], FISH NOT BLAD, MARÍA, TSH3, FLOW NEOGENOMIC, CMP, RETIC, CYTOGENE, SCAN CBC, FE and TIBC, T4F, LDH ####[facility]#### PLT AB S, SPE, RA, HBSAG, HIV SCREEN, KAPPA, HBSAB, HCV RX PCR, CAMILA, SADIE, HBCAB, SKIP SERUM, CU ####[facility] , Copperon 02-26-2024 Copper 109 ug/dL Normal 69-132 [facility] Comment on above: Result Comment: This test was developed and its performance characteristics determined by [employer]. It has not been cleared or approved by the Food and Drug Administration. Detection Limit = 5 Performed at: [address] [id number] Vending Machine Filler: Mary Jane Maya MD, Phone: [phone] Performed By: #### O BS-GUAIAC #### [address] Creatinine [Mass/volume] in Serum or PlasmaOrdered By: Bertha Cuevas on 02-26-2024 Creatinine [Mass/Vol] 1.44 mg/dL High 0.70-1.30 [facility] Comment on above: Performed By: #### V [id number], FISH NOT BLAD, MARÍA, TSH3, FLOW NEOGENOMIC, CMP, RETIC, CYTOGENE, SCAN CBC, FE and TIBC, T4F, LDH ####[place] [address] [place] [address] [place]#### PLT AB S, SPE, RA, HBSAG, HIV SCREEN, KAPPA, HBSAB, HCV RX PCR, CAMILA, SADIE, HBCAB, SKIP SERUM, CU ####[facility] , Cytogenetics [employer] Cytogenetics Neogenomic Normal [facility] Comment on above: Result Comment: See report. Scanned copy available in EMR. Performed By: #### P TT, BMP, HS TROP, PT, CK, BNP, DIFF CBC #### [facility] [address] Direct [place] 02-26-2024 Polyspecific AHG Negative Normal Negative [facility] Comment on above: Result Comment: PERF ORMED BY: [facility] [address] [place] [address] PATHOLOGIST BILINGUAL OPERATOR OTTO HARLEY M.D. Erythrocyte distribution wid th [Ratio] by Automated countOrdered By: Bertha Pearce on 02-26-2024 Erythrocyte distribution width (RBC) [Ratio] 20.0 % High 12.0-14.8 [facility] Comment on above: Performed By: #### V [id number], FISH NOT BLAD, MARÍA, TSH3, FLOW NEOGENOMIC, CMP, RETIC, CYTOGENE, SCAN CBC, FE and TIBC, T4F, LDH ####[facility]#### PLT AB S, SPE, RA, HBSAG, HIV SCREEN, KAPPA, HBSAB, HCV RX PCR, CAMILA, SADIE, HBCAB, SKIP SERUM, CU ####[facility] , Erythrocytes [#/volume] in B lood by Automated countOrdered By: Bertha Cuevas on 02-26-2024 RBC (Bld) [#/Vol] 2.60 10*6/uL Low 3.90-5.60 [facility] Comment on above: Performed By: #### V [id number], FISH NOT BLAD, MARÍA, TSH3, FLOW NEOGENOMIC, CMP, RETIC, CYTOGENE, SCAN CBC, FE and TIBC, T4F, LDH ####[place] [address] [place] [address] [place]#### PLT AB S, SPE, RA, HBSAG, HIV SCREEN, KAPPA, HBSAB, HCV RX PCR, CAMILA, SADIE, HBCAB, SKIP SERUM, CU ####[facility] , Ferritin [Mass/volume] in Se rum or PlasmaOrdered By: Bertha Cuevas on 02-26-2024 Ferritin [Mass/Vol] 720.3 ng/mL High 23.9-336.2 [facility] Comment on above: Performed By: #### V [id number], FISH NOT BLAD, MARÍA, TSH3, FLOW NEOGENOMIC, CMP, RETIC, CYTOGENE, SCAN CBC, FE and TIBC, T4F, LDH ####[facility] [id number] [address]#### PLT AB S, SPE, RA, HBSAG, HIV SCREEN, KAPPA, HBSAB, HCV RX PCR, CAMILA, SADIE, HBCAB, SKIP SERUM, CU ####[facility] , Fish Not Bladder Neogenomico n 02-26-2024 Fish Not Bladder Neogenomic Normal [facility] Comment on above: Result Comment: See report. Scanned copy available in EMR. PERFORMED BY: [facility] [address] [place] [address] PATHOLOGIST BILINGUAL OPERATOR OTTO HARLEY M.D. Performed By: #### P TT, BMP, HS TROP, PT, CK, BNP, DIFF CBC #### [facility] [address] Flowcytometry [employer]icon 0 02-26-2024 Flowcytometry Neogenomic Normal [facility] Comment on above: Result Comment: See report. Scanned copy available in EMR.See report. Scanned copy available in EMR. --- 03/03/24 0759 --- Flow Neogenomic previously reported as: See report. Scanned copy available in EMR. Performed By: #### P TT, BMP, HS TROP, PT, CK, BNP, DIFF CBC #### [facility] [address] Folate [Mass/volume] in Seru m or PlasmaOrdered By: Bertha Cuevas on 02-26-2024 Folate [Mass/Vol] ng/mL >5.9 [facility] Comment on above: Folate reference ran ge: >5.9 ng/mlThe WHO technical consultation on folate and vitamin [id number] has determined that folate concentrations lessthan 4 ng/ml are considered deficient. Free K+L LT Chains, Qn, Son 02-26-2024 Free Gardner Light Chains, S 1354.4 mg/L High 3.3-19.4 [facility] Comment on above: Performed By: #### P TT, BMP, HS TROP, PT, CK, BNP, DIFF CBC #### [facility] [address] Free Lambda Light Chains, S 10.1 mg/L Normal 5.7-26.3 [facility] Comment on above: Performed By: #### P TT, BMP, HS TROP, PT, CK, BNP, DIFF CBC #### [facility] [address] [place] [address] [place] Gardner/Lambda Ratio, S 134.10 High 0.26-1.65 [facility] Comment on above: Result Comment: Perf ormed at: CB - [facility] [address] [id number] Vending Machine Filler: J Carlos Blackman PhD, Phone: [phone] PERFORMED BY: [place] [address] PATHOLOGIST BILINGUAL OPERATOR OTTO HARLEY M.D. Performed By: #### P TT, BMP, HS TROP, PT, CK, BNP, DIFF CBC #### [address] Glucose [Mass/volume] in Ser um or PlasmaOrdered By: Bertha Cuevas on 02-26-2024 Glucose [Mass/Vol] 104 mg/dL High 70-100 [facility] Comment on above: ADA recommended refe rence rangeRandom Glucose Reference Range is dependent on time and content of last meal. Glucose of more than 200 mg/dL in a nonstressed, ambulatory subject supports the diagnosis of Diabetes Mellitus. Result Comment: [place] om Glucose Reference Range is dependent on time and content of last meal. Glucose of more than 200 mg/dL in a nonstressed, ambulatory subject supports the diagnosis of Diabetes Mellitus. ADA recommended reference range Performed By: #### V [id number], FISH NOT BLAD, MARÍA, TSH3, FLOW NEOGENOMIC, CMP, RETIC, CYTOGENE, SCAN CBC, FE and TIBC, T4F, LDH ####[facility]#### PLT AB S, SPE, RA, HBSAG, HIV SCREEN, KAPPA, HBSAB, HCV RX PCR, CAMILA, SADIE, HBCAB, SKIP SERUM, CU ####[facility] , HIV 1/O/2 Antigen/Antibodyon 02-26-2024 HIV Screen 4th Generation Non-Reactive Normal Non Reactive [facility] Comment on above: Result Comment: HIV Negative HIV-1/HIV-2 antibodies and HIV-1 p24 antigen were NOT detected. There is no laboratory evidence of HIV infection. Performed at: [facility] [place] [address] Vending Machine Filler: J Carlos Blackman PhD, Phone: [phone] Performed By: #### P TT, BMP, HS TROP, PT, CK, BNP, DIFF CBC #### [facility] [address] HIV 1 and HIV-2 antibody ass ay with HIV-1 p24 antigen detectionOrdered By: Bertha Cuevas on 02-26-2024 HIV 1+2 Ab+HIV1 p24 Ag IA Ql Non-Reactive Non Reactive [facility] Comment on above: HIV NegativeHIV-1/HI V-2 antibodies and HIV-1 p24 antigen were NOTdetected. There is no laboratory evidence of HIV infection.Performed at: [facility] [id number] Director: J Carlos Blackman PhD, Phone: [phone] Hematocrit [Volume Fraction] of Blood by Automated countOrdered By: Bertha Pearce on 02-26-2024 Hematocrit (Bld) [Volume fraction] 27.0 % Low 38.8-50.0 [facility] Comment on above: Performed By: #### V [id number], FISH NOT BLAD, MARÍA, TSH3, FLOW NEOGENOMIC, CMP, RETIC, CYTOGENE, SCAN CBC, FE and TIBC, T4F, LDH ####[facility]#### PLT AB S, SPE, RA, HBSAG, HIV SCREEN, KAPPA, HBSAB, HCV RX PCR, CAMILA, SADIE, HBCAB, SKIP SERUM, CU ####[facility] , Hemoglobin [Mass/volume] in BloodOrdered By: Bertha Cuevas on 02-26-2024 Hemoglobin (Bld) [Mass/Vol] 9.3 g/dL Low 13.0-17.0 [facility] Comment on above: Performed By: #### V [id number], FISH NOT BLAD, MARÍA, TSH3, FLOW NEOGENOMIC, CMP, RETIC, CYTOGENE, SCAN CBC, FE and TIBC, T4F, LDH ####[facility] [id number] [address]#### PLT AB S, SPE, RA, HBSAG, HIV SCREEN, KAPPA, HBSAB, HCV RX PCR, CAMILA, SADIE, HBCAB, SKIP SERUM, CU ####[facility] , Hep C Ab wRfx to Qnt PCRon 0 02-26-2024 Hepatitis C Virus Antibody Non-Reactive Normal Non Reactive [facility] Comment on above: Performed By: #### O BS-GUAIAC #### [address] Interpretation Hepatitis C Normal . [facility] Comment on above: Result Comment: Not infected with HCV unless early or acute infection is suspected (which may be delayed in an immunocompromised individual), or other evidence exists to indicate HCV infection. Performed By: #### O BS-GUAIAC #### [address] Hepatitis B Core Antibodyon 02-26-2024 Hepatitis B Core Antibody Positive Critically abnormal Negative [facility] Comment on above: Result Comment: Perf ormed at: - [facility] [address] [id number] Vending Machine Filler: J Carlos Blackman PhD, Phone: [phone] Performed By: #### O BS-GUAIAC #### [address] Hepatitis B Surface Antibody on 02-26-2024 Hepatitis B Surface Antibody Reactive Normal . [facility] Comment on above: Result Comment: Non Reactive: Inconsistent with immunity, less than 10 mIU/mL Reactive: Consistent with immunity, greater than 9.9 mIU/mL Performed By: #### O BS-GUAIAC #### [facility] [address] Hepatitis B Surface Antigeno n 02-26-2024 HBsAg Screen Negative Normal Negative [facility] Comment on above: Result Comment: PERF ORMED BY: [place] [address] PATHOLOGIST BILINGUAL OPERATOR OTTO HARLEY M.D. Performed By: #### O BS-GUAIAC #### [address] Hepatitis B virus surface Ab [Presence] in SerumOrdered By: Bertha Cuevas on 02-26-2024 HBV surface Ab Ql (S) Reactive . [facility] Comment on above: Non Reactive: Incons istent with immunity, less than 10 mIU/mL Reactive: Consistent with immunity, greater than 9.9 mIU/mL Hepatitis B virus surface Ag [Presence] in Serum or Plasma by ImmunoassayOrdered By: Bertha Cuevas on 02-26-2024 HBV surface Ag IA Ql Negative Negative [facility] Hepatitis C virus IgG Ab [Pr esence] in Serum or Plasma by ImmunoassayOrdered By: Bertha Cuevas on 02-26-2024 HCV IgG IA Ql Non-Reactive Non Reactive [facility] IgA [Mass/volume] in Serum o r PlasmaOrdered By: Bertha Cuevas on 02-26-2024 IgA [Mass/Vol] 3828 mg/dL High 61-437 [facility] Comment on above: Results confirmed on dilution. IgG [Mass/volume] in Serum o r PlasmaOrdered By: Bertha Cuevas on 02-26-2024 IgG [Mass/Vol] 667 mg/dL [id number] [facility] IgM [Mass/volume] in Serum o r PlasmaOrdered By: Bertha Cuevas on 02-26-2024 IgM [Mass/Vol] 16 mg/dL 15-143 [facility] Comment on above: Result confirmed on concentration.Performed at: [facility] [place], [place] [id number] Director: J Carlos Blackman PhD, Phone: [phone] Immunofixation,Serumon 02-25 Immunofixation, Serum Abnormal . [facility] Comment on above: Result Comment: Immu nofixation shows IgA monoclonal protein with kappa light chain specificity. Performed By: #### O BS-GUAIAC #### [facility] [address] [place] [address] [place] Immunoglobulin A, Serum 3828 mg/dL High 61-437 [facility] Comment on above: Result Comment: Resu lts confirmed on dilution. Performed By: #### O BS-GUAIAC #### [facility] [address] [place] [address] [place] Immunoglobulin G 667 mg/dL Normal 603-1613 [facility] Comment on above: Performed By: #### O BS-GUAIAC #### [facility] [address] [place] [address] [place] Immunoglobulin M, Serum 16 mg/dL Normal 15-143 [facility] Comment on above: Result Comment: Resu lt confirmed on concentration. Performed at: [facility] [address] [place], [place] [id number] Vending Machine Filler: J Carlos Blackman PhD, Phone: [phone] Performed By: #### O BS-GUAIAC #### [facility] [address] [id number] [facility] Immunoglobulin light chains. kappa.free [Mass/volume] in SerumOrdered By: Bertha Cuevas on 02-26-2024 Immunoglobulin light chains.kappa.free (S) [Mass/Vol] 1354.4 mg/L High 3.3-19.4 [facility] Immunoglobulin light chains. kappa.free/Immunoglobulin light chains.lambda.free [MassOrdered By: Bertha Cuevas on 02-26-2024 Immunoglobulin light chains.kappa.free/Immu noglobulin light chains.lambda.free (S) [Mass ratio] 134.10 High 0.26-1.65 [facility] Comment on above: Performed at: [address] [id number] Director: J Carlos Blackman PhD, Phone: [phone] Immunoglobulin light chains. lambda.free [Mass/volume] in Serum or PlasmaOrdered By: Bertha Cuevas on 02-26-2024 Immunoglobulin light chains.lambda.free [Mass/Vol] 10.1 mg/L 5.7-26.3 [facility] Iron [Mass/volume] in Serum or PlasmaOrdered By: Bertha Cuevas on 02-26-2024 Iron [Mass/Vol] 139 ug/dL 50-212 [facility] Comment on above: Performed By: #### V [id number], FISH NOT BLAD, MARÍA, TSH3, FLOW NEOGENOMIC, CMP, RETIC, CYTOGENE, SCAN CBC, FE and TIBC, T4F, LDH ####[facility] [id number] [place] [address] [place]#### PLT AB S, SPE, RA, HBSAG, HIV SCREEN, KAPPA, HBSAB, HCV RX PCR, CAMILA, SADIE, HBCAB, SKIP SERUM, CU ####[facility] , Iron and TIBC Profileon 06-0 -2023 % Iron Saturation 64.1 % High 20-50 [facility] Comment on above: Performed By: #### V [id number], FISH NOT BLAD, MARÍA, TSH3, FLOW NEOGENOMIC, CMP, RETIC, CYTOGENE, SCAN CBC, FE and TIBC, T4F, LDH ####[facility] [place] [address] [place]#### PLT AB S, SPE, RA, HBSAG, HIV SCREEN, KAPPA, HBSAB, HCV RX PCR, CAMILA, SADIE, HBCAB, SKIP SERUM, CU ####[facility] , Total Iron Binding Capacity 217 ug/dL Low 255-450 [facility] Comment on above: Performed By: #### V [id number], FISH NOT BLAD, MARÍA, TSH3, FLOW NEOGENOMIC, CMP, RETIC, CYTOGENE, SCAN CBC, FE and TIBC, T4F, LDH ####[facility] [place] [address] [place]#### PLT AB S, SPE, RA, HBSAG, HIV SCREEN, KAPPA, HBSAB, HCV RX PCR, CAMILA, SADIE, HBCAB, SKIP SERUM, CU ####[facility] , Iron binding capacity [Mass/ volume] in Serum or PlasmaOrdered By: Bertha Cuevas on 02-26-2024 Iron binding capacity [Mass/Vol] 217 ug/dL Low 255-450 [facility] Iron saturation [Mass Fracti on] in Serum or PlasmaOrdered By: Bertha Cuevas on 02-26-2024 Iron saturation [Mass fraction] 64.1 % High 20-50 [facility] LDH Lactate Dehydrogenaseon 02-26-2024 LDH Lactate Dehydrogenase 118 U/L Low 140-271 [facility] Comment on above: Performed By: #### V [id number], FISH NOT BLAD, MARÍA, TSH3, FLOW NEOGENOMIC, CMP, RETIC, CYTOGENE, SCAN CBC, FE and TIBC, T4F, LDH ####[facility] [place] [address] [place]#### PLT AB S, SPE, RA, HBSAG, HIV SCREEN, KAPPA, HBSAB, HCV RX PCR, CAMILA, SADIE, HBCAB, SKIP SERUM, CU ####[facility] , Laboratory - Chemistry and C hemistry - challengeOrdered By: Bertha Cuevas on 02-26-2024 Protein [Mass/Vol] 3.7 g/dL High Not Observed [facility] Lactate dehydrogenase [Enzym atic activity/volume] in Serum or Plasma by Lactate to pyOrdered By: Bertha Cuevas on 02-26-2024 LDH Lactate to pyruvate reaction [Catalytic activity/Vol] 118 U/L Low 140-271 [facility] Leukocytes [#/volume] correc myrtle for nucleated erythrocytes in Blood by Automated counOrdered By: Bertha Cuevas on 02-26-2024 WBC corrected for nucl RBC Auto (Bld) [#/Vol] 2.5 10*3/uL Low 4.1-10.5 [facility] Leukocytes [#/volume] in Blo od by Automated countOrdered By: artem Cuevas on 02-26-2024 WBC (Bld) [#/Vol] 2.5 10*3/uL Low 4.1-10.5 [facility] Comment on above: Performed By: #### V [id number], FISH NOT BLAD, MARÍA, TSH3, FLOW NEOGENOMIC, CMP, RETIC, CYTOGENE, SCAN CBC, FE and TIBC, T4F, LDH ####[facility] [id number] [place] [address] [place]#### PLT AB S, SPE, RA, HBSAG, HIV SCREEN, KAPPA, HBSAB, HCV RX PCR, CAMILA, SADIE, HBCAB, SKIP SERUM, CU ####[facility] , Lymphocytes [#/volume] in Bl ood by Automated countOrdered By: artem Cuevas on 02-26-2024 Lymphocytes (Bld) [#/Vol] 1.1 10*3/uL Normal 1.00-4.8 [facility] Comment on above: Performed By: #### V [id number], FISH NOT BLAD, MARÍA, TSH3, FLOW NEOGENOMIC, CMP, RETIC, CYTOGENE, SCAN CBC, FE and TIBC, T4F, LDH ####[facility] [id number] [place] [address] [place]#### PLT AB S, SPE, RA, HBSAG, HIV SCREEN, KAPPA, HBSAB, HCV RX PCR, CAMILA, SADIE, HBCAB, SKIP SERUM, CU ####[facility] , Lymphocytes/100 leukocytes i n Blood by Automated countOrdered By: artem Cuevas on 02-26-2024 Lymphocytes/100 WBC (Bld) 43.0 % Normal . [facility] Comment on above: Performed By: #### V [id number], FISH NOT BLAD, MARÍA, TSH3, FLOW NEOGENOMIC, CMP, RETIC, CYTOGENE, SCAN CBC, FE and TIBC, T4F, LDH ####[facility] [place] [address] [place]#### PLT AB S, SPE, RA, HBSAG, HIV SCREEN, KAPPA, HBSAB, HCV RX PCR, CAMILA, SADIE, HBCAB, SKIP SERUM, CU ####[facility] , MCH [Entitic mass] by Automa myrtle countOrdered By: Bertha Cuevas on 02-26-2024 MCH (RBC) [Entitic mass] 35.7 pg High 27.5-35.2 [facility] Comment on above: Performed By: #### V [id number], FISH NOT BLAD, MARÍA, TSH3, FLOW NEOGENOMIC, CMP, RETIC, CYTOGENE, SCAN CBC, FE and TIBC, T4F, LDH ####[place] [address] [place]#### PLT AB S, SPE, RA, HBSAG, HIV SCREEN, KAPPA, HBSAB, HCV RX PCR, CAMILA, SADIE, HBCAB, SKIP SERUM, CU ####[facility] , MCHC Auto (RBC) [Mass/Vol]Or dered By: Bertha Cuevas on 02-26-2024 MCHC (RBC) [Mass/Vol] 34.4 g/dL 32.5-35.6 [facility] MCV [Entitic volume] by Auto mated countOrdered By: Bertha Cuevas on 02-26-2024 MCV (RBC) [Entitic vol] 103.8 fL High 83.5-101 [facility] Comment on above: Performed By: #### V [id number], FISH NOT BLAD, MARÍA, TSH3, FLOW NEOGENOMIC, CMP, RETIC, CYTOGENE, SCAN CBC, FE and TIBC, T4F, LDH ####[address] [place] [address] [place]#### PLT AB S, SPE, RA, HBSAG, HIV SCREEN, KAPPA, HBSAB, HCV RX PCR, CAMILA, SADIE, HBCAB, SKIP SERUM, CU ####[facility] , Macrocytes LM Ql (Bld)Ordere d By: Bertha Cuevas on 02-26-2024 Macrocytes Ql (Bld) Slight [facility] Neutrophils [#/volume] in Bl ood by Automated countOrdered By: Bertha Cuevas on 02-26-2024 Neutrophils (Bld) [#/Vol] 1.1 10*3/uL Low 1.8-7.7 [facility] Comment on above: Performed By: #### V [id number], FISH NOT BLAD, MARÍA, TSH3, FLOW NEOGENOMIC, CMP, RETIC, CYTOGENE, SCAN CBC, FE and TIBC, T4F, LDH ####[facility] [id number]#### PLT AB S, SPE, RA, HBSAG, HIV SCREEN, KAPPA, HBSAB, HCV RX PCR, CAMILA, SADIE, HBCAB, SKIP SERUM, CU ####[facility] , No Panel InformationOrdered By: Bertha Cuevas on 02-26-2024 Anti-Nuclear Antibody Comment 2 See comment . [facility] Comment on above: Pattern Potential Di sease Association Homogeneous Systemic Lupus Erythematosus, Drug Induced Systemic Lupus Erythematosus, Chronic Autoimmune hepatitis, Juvenile Idiopathic Arthritis Speckled Sjogren Syndrome, Systemic Lupus Erythematosus, Subacute Cutaneous Lupus, Lupus, Congenital Heart Block, Mixed Connective Tissue Disease, Scleroderma-diffuse, Scleroderma-Autoimmune Myositis Overlap Syndrome, Systemic Lupus Wleauxavmlxql-Bfbsngnkgwu-Jkhjxuhrhv Myositis Overlap Syndrome, Systemic Autoimmune Rheumatic Disease, [...] Cytopenias, Linear Scleroderma, Antiphospholipid Syndrome Performed at: [facility] [id number] Director: J Carlos Blackman PhD, Phone: [phone] Anti-Platelet Glycoprotein IV Negative Negative [facility] Comment on above: Performed at: - L [facility] [id number] Director: Mary Jane Maya MD, Phone: [phone] Comment (FISH) See comment [facility] Comment on above: See report. Scanned copy available in EMR. Estimated GFR (CKD-EPI) 50.358 mL/Min [facility] Hepatitis B Core Total Antibody Positive Abnormal Negative [facility] Comment on above: Performed at: [facility] [address] [id number] Director: J Carlos Blackman PhD, Phone: [phone] Hepatitis C Interpretation See comment . [facility] Comment on above: Not infected with HC V unless early or acute infection issuspected (which may be delayed in an immunocompromisedindividual), or other evidence exists to indicate HCVinfection. Pharmacy Creatinine Clearance (Chem 43.64 [facility] Protein Electrophoresis Note See comment . [facility] Comment on above: Protein electrophore sis scan will follow via computer,mail, or retarder operator delivery.Performed at: [facility] - [facility] [address] [id number] Director: J Carlos Blackman PhD, Phone: [phone] Serum Immunofixation See comment Abnormal . [facility] Comment on above: Immunofixation shows IgA monoclonal protein with kappalight chain specificity. Nucleated erythrocytes [Pres ence] in Blood by Automated countOrdered By: Bertha Cuevas on 02-26-2024 Nucleated RBC Auto Ql (Bld) 0.2 /100{WBC} 0-0.5 [facility] Platelet Antibody, Serumon 0 02-26-2024 GLycoprotein IV Antibody Negative Normal Negative [facility] Comment on above: Result Comment: Perf ormed at: BN - [facility] [address] [id number] Vending Machine Filler: Mary Jane Maya MD, Phone: [phone] Performed By: #### P TT, BMP, HS TROP, PT, CK, BNP, DIFF CBC #### [facility] [address] Hla Class 1 Antibody Negative Normal Negative [facility] Comment on above: Performed By: #### P TT, BMP, HS TROP, PT, CK, BNP, DIFF CBC #### [facility] [address] [place] [address] [place] Ia/IIa Antibodies Negative Normal Negative [facility] Comment on above: Performed By: #### P TT, BMP, HS TROP, PT, CK, BNP, DIFF CBC #### [facility] [address] Ib/IX Antibody Negative Normal Negative [facility] Comment on above: Performed By: #### P TT, BMP, HS TROP, PT, CK, BNP, DIFF CBC #### [facility] [address] IIb/IIIa Antibody Negative Normal Negative [facility] Comment on above: Performed By: #### P TT, BMP, HS TROP, PT, CK, BNP, DIFF CBC #### [facility] [address] Platelet adequacy [Presence] in Blood by Light microscopyOrdered By: Bertha Pearce on 02-26-2024 Platelets LM Ql (Bld) Decreased Normal [facility] Platelet mean volume [Entiti c volume] in Blood by Automated countOrdered By: Bertha Cuevas on 02-26-2024 Platelet mean volume (Bld) [Entitic vol] 7.0 fL Normal 6.6-10.1 [facility] Comment on above: Performed By: #### V [id number], FISH NOT BLAD, MARÍA, TSH3, FLOW NEOGENOMIC, CMP, RETIC, CYTOGENE, SCAN CBC, FE and TIBC, T4F, LDH ####[facility]#### PLT AB S, SPE, RA, HBSAG, HIV SCREEN, KAPPA, HBSAB, HCV RX PCR, CAMILA, SADIE, HBCAB, SKIP SERUM, CU ####[facility] , Platelet morphology finding [Identifier] in BloodOrdered By: Bertha Cuevas on 02-26-2024 Platelet morphology finding Nom (Bld) Normal Normal [facility] Platelets [#/volume] in Bloo d by Automated countOrdered By: Bertha Cuevas on 02-26-2024 Platelets (Bld) [#/Vol] 83 10*3/uL Low 150-450 [facility] Comment on above: Performed By: #### V [id number], FISH NOT BLAD, MARÍA, TSH3, FLOW NEOGENOMIC, CMP, RETIC, CYTOGENE, SCAN CBC, FE and TIBC, T4F, LDH ####[facility] [place] [address] [place]#### PLT AB S, SPE, RA, HBSAG, HIV SCREEN, KAPPA, HBSAB, HCV RX PCR, CAMILA, SADIE, HBCAB, SKIP SERUM, CU ####[facility] , Potassium [Moles/volume] in Serum or PlasmaOrdered By: Bertha Cuevas on 02-26-2024 Potassium [Moles/Vol] 4.2 mmol/L Normal 3.5-5.1 [facility] Comment on above: Performed By: #### V [id number], FISH NOT BLAD, MARÍA, TSH3, FLOW NEOGENOMIC, CMP, RETIC, CYTOGENE, SCAN CBC, FE and TIBC, T4F, LDH ####[address] [place] [address] [place]#### PLT AB S, SPE, RA, HBSAG, HIV SCREEN, KAPPA, HBSAB, HCV RX PCR, CAMILA, SADIE, HBCAB, SKIP SERUM, CU ####[facility] , Protein Electrophoresis, Ser umon 02-26-2024 Yeqvn-1-Jtltkisl 0.3 g/dL Normal 0.0-0.4 [facility] Comment on above: Performed By: #### P TT, BMP, HS TROP, PT, CK, BNP, DIFF CBC #### [address] Morwn-5-Rpbjntls 0.9 g/dL Normal 0.4-1.0 [facility] Comment on above: Performed By: #### P TT, BMP, HS TROP, PT, CK, BNP, DIFF CBC #### [address] Beta Globulin 4.4 g/dL High 0.7-1.3 [facility] Comment on above: Performed By: #### P TT, BMP, HS TROP, PT, CK, BNP, DIFF CBC #### [address] Gamma Globulin 0.6 g/dL Normal 0.4-1.8 [facility] Comment on above: Performed By: #### P TT, BMP, HS TROP, PT, CK, BNP, DIFF CBC #### [facility] [address] M-Kody 3.7 g/dL High Not Observed [facility] Comment on above: Performed By: #### P TT, BMP, HS TROP, PT, CK, BNP, DIFF CBC #### [facility] [address] SPE-Note Normal . [facility] Comment on above: Result Comment: Prot ein electrophoresis scan will follow via computer, mail, or retarder operator delivery. Performed at: [facility] [id number] Vending Machine Filler: J Carlos Blackman PhD, Phone: [phone] Performed By: #### P TT, BMP, HS TROP, PT, CK, BNP, DIFF CBC #### [facility] [address] Protein [Mass/volume] in Ser um or PlasmaOrdered By: Bertha Cuevas on 02-26-2024 Protein [Mass/Vol] 9.9 g/dL High 6.4-8.9 [facility] Comment on above: Performed By: #### V [id number], FISH NOT BLAD, MARÍA, TSH3, FLOW NEOGENOMIC, CMP, RETIC, CYTOGENE, SCAN CBC, FE and TIBC, T4F, LDH ####[facility]#### PLT AB S, SPE, RA, HBSAG, HIV SCREEN, KAPPA, HBSAB, HCV RX PCR, CAMILA, SADIE, HBCAB, SKIP SERUM, CU ####[facility] , Protein [Mass/Vol] 9.6 g/dL High 6.0-8.5 [facility] Comment on above: Performed By: #### P TT, BMP, HS TROP, PT, CK, BNP, DIFF CBC #### [facility] [address] [place] [address] RBC morphologyOrdered By: Endy Cuevas on 02-26-2024 RBC morphology finding Nom (Bld) Normal Normal Normal [facility] Comment on above: Performed By: #### V [id number], FISH NOT BLAD, MARÍA, TSH3, FLOW NEOGENOMIC, CMP, RETIC, CYTOGENE, SCAN CBC, FE and TIBC, T4F, LDH ####[address]#### PLT AB S, SPE, RA, HBSAG, HIV SCREEN, KAPPA, HBSAB, HCV RX PCR, CAMILA, SADIE, HBCAB, SKIP SERUM, CU ####[facility] , Reticulocyte Counton 024 Reticulocyte Number 0.002 10*6/uL Low 0.024-0 .08 4 [facility] Comment on above: Result Comment: PERF ORMED BY: [place] [address] PATHOLOGIST BILINGUAL OPERATOR OTTO HARLEY M.D. Performed By: #### V [id number], FISH NOT BLAD, MARÍA, TSH3, FLOW NEOGENOMIC, CMP, RETIC, CYTOGENE, SCAN CBC, FE and TIBC, T4F, LDH ####[address]#### PLT AB S, SPE, RA, HBSAG, HIV SCREEN, KAPPA, HBSAB, HCV RX PCR, CAMILA, SADIE, HBCAB, SKIP SERUM, CU ####[facility] , Reticulocyte Percent 0.1 % Low 0.5-1.5 [facility] Comment on above: Performed By: #### V [id number], FISH NOT BLAD, MARÍA, TSH3, FLOW NEOGENOMIC, CMP, RETIC, CYTOGENE, SCAN CBC, FE and TIBC, T4F, LDH ####[address]#### PLT AB S, SPE, RA, HBSAG, HIV SCREEN, KAPPA, HBSAB, HCV RX PCR, CAMILA, SADIE, HBCAB, SKIP SERUM, CU ####[facility] , Reticulocytes/100 RBC Auto ( Bld)Ordered By: Bertha Cuevas on 02-26-2024 Reticulocytes/100 RBC (Bld) 0.1 % Low 0.5-1.5 [facility] Rheumatoid Factoron 02-26-20 Rheumatoid Factor 12.8 Normal <14.0 [facility] Comment on above: Performed By: #### O BS-GUAIAC #### [facility] [address] Scan and CBCon 02-26-2024 Macrocytosis Slight Normal [facility] Comment on above: Performed By: #### V [id number], FISH NOT BLAD, MARÍA, TSH3, FLOW NEOGENOMIC, CMP, RETIC, CYTOGENE, SCAN CBC, FE and TIBC, T4F, LDH ####[facility]#### PLT AB S, SPE, RA, HBSAG, HIV SCREEN, KAPPA, HBSAB, HCV RX PCR, CAMILA, SADIE, HBCAB, SKIP SERUM, CU ####[facility] , Mean Corpuscular HGB Conc 34.4 g/dL Normal 32.5-35.6 [facility] Comment on above: Performed By: #### V [id number], FISH NOT BLAD, MARÍA, TSH3, FLOW NEOGENOMIC, CMP, RETIC, CYTOGENE, SCAN CBC, FE and TIBC, T4F, LDH ####[facility] [address] [place] [address] [place]#### PLT AB S, SPE, RA, HBSAG, HIV SCREEN, KAPPA, HBSAB, HCV RX PCR, CAMILA, SADIE, HBCAB, SKIP SERUM, CU ####[facility] , NRBC% 0.2 /100{WBC} Normal 0-0.5 [facility] Comment on above: Performed By: #### V [id number], FISH NOT BLAD, MARÍA, TSH3, FLOW NEOGENOMIC, CMP, RETIC, CYTOGENE, SCAN CBC, FE and TIBC, T4F, LDH ####[address] [place] [address] [place]#### PLT AB S, SPE, RA, HBSAG, HIV SCREEN, KAPPA, HBSAB, HCV RX PCR, CAMILA, SADIE, HBCAB, SKIP SERUM, CU ####[facility] , Platelet Estimate Decreased Normal Normal [facility] Comment on above: Performed By: #### V [id number], FISH NOT BLAD, MARÍA, TSH3, FLOW NEOGENOMIC, CMP, RETIC, CYTOGENE, SCAN CBC, FE and TIBC, T4F, LDH ####[address] [place] [address] [place]#### PLT AB S, SPE, RA, HBSAG, HIV SCREEN, KAPPA, HBSAB, HCV RX PCR, CAMILA, SADIE, HBCAB, SKIP SERUM, CU ####[facility] , Platelet Morphology Normal Normal Normal [facility] Comment on above: Performed By: #### V [id number], FISH NOT BLAD, MARÍA, TSH3, FLOW NEOGENOMIC, CMP, RETIC, CYTOGENE, SCAN CBC, FE and TIBC, T4F, LDH ####[address] [place] [address] [place]#### PLT AB S, SPE, RA, HBSAG, HIV SCREEN, KAPPA, HBSAB, HCV RX PCR, CAMILA, SADIE, HBCAB, SKIP SERUM, CU ####[facility] , Serum HLA antibody detection by immunoassayOrdered By: Bertha Cuevas on 02-26-2024 HLA Ab IA Ql (S) Negative Negative [facility] Serum angiotensin converting enzyme (SADIE) measurementOrdered By: Bertha Cuevas on 02-26-2024 Angiotensin converting enzyme [Catalytic activity/Vol] 25 U/L [facility] Comment on above: Performed at: [facility] [address] [id number] Director: J Carlos Blackman PhD, Phone: [phone] Result Comment: Perf ormed at: [facility] [address] [id number] Vending Machine Filler: J Carlos Blackman PhD, Phone: [phone] Performed By: #### O BS-GUAIAC #### [address] Serum globulin measurement ( mass/volume)Ordered By: Bertha Cuevas on 02-26-2024 Globulin (S) [Mass/Vol] 6.2 g/dL High 2.2-3.9 [facility] Comment on above: Performed By: #### P TT, BMP, HS TROP, PT, CK, BNP, DIFF CBC #### [facility] [address] [place] [address] Serum globulin measurement b y calculation (mass/volume)Ordered By: Bertha Pearce on 02-26-2024 Globulin (S) [Mass/Vol] 6.4 g/dL Normal [facility] Comment on above: Performed By: #### V [id number], FISH NOT BLAD, MARÍA, TSH3, FLOW NEOGENOMIC, CMP, RETIC, CYTOGENE, SCAN CBC, FE and TIBC, T4F, LDH ####[facility] [id number]#### PLT AB S, SPE, RA, HBSAG, HIV SCREEN, KAPPA, HBSAB, HCV RX PCR, CAMILA, SADIE, HBCAB, SKIP SERUM, CU ####[facility] , Serum homogeneous pattern an tinuclear antibody (CAMILA) titerOrdered By: Bertha Pearce on 02-26-2024 Homogenous nuclear Ab pattern (S) [Titer] 1:320 High . [facility] Comment on above: ICAP nomenclature: A C-1 Serum nuclear antibody titer Ordered By: Bertha Cuevas on 02-26-2024 Nuclear Ab (S) [Titer] Positive Abnormal . [facility] Comment on above: Negative <1:80 Borde rline 1:80 Positive >1:80 Serum or plasma albumin/glob ulin mass ratioOrdered By: Bertha Cuevas on 02-26-2024 Albumin/Globulin [Mass ratio] 0.5 {ratio} Low 0.7-1.7 [facility] Comment on above: Performed By: #### V [id number], FISH NOT BLAD, MARÍA, TSH3, FLOW NEOGENOMIC, CMP, RETIC, CYTOGENE, SCAN CBC, FE and TIBC, T4F, LDH ####[facility]#### PLT AB S, SPE, RA, HBSAG, HIV SCREEN, KAPPA, HBSAB, HCV RX PCR, CAMILA, SADIE, HBCAB, SKIP SERUM, CU ####[facility] , Performed By: #### P TT, BMP, HS TROP, PT, CK, BNP, DIFF CBC #### [facility] [address] Serum or plasma alpha 1 glob ulin measurement by electrophoresis (mass/volume)Ordered By: Bertha Cuevas on 02-26-2024 Alpha 1 globulin Elph [Mass/Vol] 0.3 g/dL 0.0-0.4 [facility] Serum or plasma alpha 2 glob ulin measurement by electrophoresis (mass/volume)Ordered By: Bertha Cuevas on 02-26-2024 Alpha 2 globulin Elph [Mass/Vol] 0.9 g/dL 0.4-1.0 [facility] Serum or plasma anion gap de terminationOrdered By: Bertha Cuevas on 02-26-2024 Anion gap [Moles/Vol] 16.0 mmol/L High 6.0-15.0 [facility] Comment on above: Performed By: #### V [id number], FISH NOT BLAD, MARÍA, TSH3, FLOW NEOGENOMIC, CMP, RETIC, CYTOGENE, SCAN CBC, FE and TIBC, T4F, LDH ####[facility] [place] [address] [place]#### PLT AB S, SPE, RA, HBSAG, HIV SCREEN, KAPPA, HBSAB, HCV RX PCR, CAMILA, SADIE, HBCAB, SKIP SERUM, CU ####[facility] , Serum or plasma beta globuli n measurement by electrophoresis (mass/volume)Ordered By: artem Cuevas on 02-26-2024 Beta globulin Elph [Mass/Vol] 4.4 g/dL High 0.7-1.3 [facility] Serum or plasma gamma globul in measurement by electrophoresis (mass/volume)Ordered By: artem Cuevas on 02-26-2024 Gamma globulin Elph [Mass/Vol] 0.6 g/dL 0.4-1.8 [facility] Serum or plasma rheumatoid f actor measurement (units/volume)Ordered By: [facility] Faith on 02-26-2024 Rheumatoid factor Qn 12.8 [IU]/mL <14.0 [facility] Serum platelet glycoprotein IIb/IIIa antibody detection by immunoassayOrdered By: artem Cuevas on 02-26-2024 Platelet glycoprotein IIb/IIIa Ab IA Ql (S) Negative Negative [facility] Serum platelet glycoprotein Ia/IIa antibody detection by immunoassayOrdered By: artem Cuevas on 02-26-2024 Platelet glycoprotein Ia/IIa Ab IA Ql (S) Negative Negative [facility] Sodium [Moles/volume] in Ser um or PlasmaOrdered By: artem Cuevas on 02-26-2024 Sodium [Moles/Vol] 141 mmol/L Normal 136-145 [facility] Comment on above: Performed By: #### V [id number], FISH NOT BLAD, MARÍA, TSH3, FLOW NEOGENOMIC, CMP, RETIC, CYTOGENE, SCAN CBC, FE and TIBC, T4F, LDH ####[facility] [id number] [place] [address] [facility]#### PLT AB S, SPE, RA, HBSAG, HIV SCREEN, KAPPA, HBSAB, HCV RX PCR, CAMILA, SADIE, HBCAB, SKIP SERUM, CU ####[facility] , Thyrotropin [Units/volume] i n Serum or PlasmaOrdered By: artem Cuevas on 02-26-2024 TSH Qn 1.44 m[IU]/L 0.45-5.33 [facility] Comment on above: Result Comment: PERF ORMED BY: [place] [address] PATHOLOGIST BILINGUAL OPERATOR OTTO HARLEY M.D. Performed By: #### O BS-GUAIAC #### [address] Thyroxine (T4) free [Mass/vo lume] in Serum or PlasmaOrdered By: Bertha Cuevas on 02-26-2024 Free T4 [Mass/Vol] 0.95 ng/dL 0.61-1.12 [facility] Comment on above: Performed By: #### O BS-GUAIAC #### [address] Transferrin [Mass/volume] in Serum or PlasmaOrdered By: artem Cuevas on 02-26-2024 Transferrin [Mass/Vol] 155 mg/dL Low 203-362 [facility] Comment on above: Performed By: #### V [id number], FISH NOT BLAD, MARÍA, TSH3, FLOW NEOGENOMIC, CMP, RETIC, CYTOGENE, SCAN CBC, FE and TIBC, T4F, LDH ####[place] [address] [place]#### PLT AB S, SPE, RA, HBSAG, HIV SCREEN, KAPPA, HBSAB, HCV RX PCR, CAMILA, SADIE, HBCAB, SKIP SERUM, CU ####[facility] , Urea nitrogen [Mass/volume] in Serum or PlasmaOrdered By: Bertha Cuevas on 02-26-2024 Urea nitrogen [Mass/Vol] 34 mg/dL High 7-25 [facility] Comment on above: Performed By: #### V [id number], FISH NOT BLAD, MARÍA, TSH3, FLOW NEOGENOMIC, CMP, RETIC, CYTOGENE, SCAN CBC, FE and TIBC, T4F, LDH ####[place] [address] [place]#### PLT AB S, SPE, RA, HBSAG, HIV SCREEN, KAPPA, HBSAB, HCV RX PCR, CAMILA, SADIE, HBCAB, SKIP SERUM, CU ####[facility] , Vit. B12/Folate Profileon Folate > 49.6 Normal >5.9 [facility] Comment on above: Result Comment: Edwina te reference range: >5.9 ng/ml The WHO technical consultation on folate and vitamin b12 deficiencies has determined that folate concentrations less than 4 ng/ml are considered deficient. Performed By: #### V [id number], FISH NOT BLAD, MARÍA, TSH3, FLOW NEOGENOMIC, CMP, RETIC, CYTOGENE, SCAN CBC, FE and TIBC, T4F, LDH ####[facility] [id number] [place] [address] [place]#### PLT AB S, SPE, RA, HBSAG, HIV SCREEN, KAPPA, HBSAB, HCV RX PCR, CAMILA, SADIE, HBCAB, SKIP SERUM, CU ####[facility] , Vitamin B12 ser/plasOrdered By: Bertha Cuevas on 02-26-2024 Cobalamin (Vitamin B12) [Mass/Vol] 1961 pg/mL High 180-914 [facility] Comment on above: Performed By: #### V [id number], FISH NOT BLAD, MARÍA, TSH3, FLOW NEOGENOMIC, CMP, RETIC, CYTOGENE, SCAN CBC, FE and TIBC, T4F, LDH ####[facility] [id number] [place] [id number] [place]#### PLT AB S, SPE, RA, HBSAG, HIV SCREEN, KAPPA, HBSAB, HCV RX PCR, CAMILA, SADIE, HBCAB, SKIP SERUM, CU ####[facility] , CT WATCHMAN FULL CONTRASTon 12-28-2023 CT WATCHMAN FULL CONTRAST Interpreted By: Carlitos Aguilera, STUDY: CT WATCHMAN FULL CONTRAST; 12/28/2023 10:40 am INDICATION: Signs/Symptoms:A-fib, Post-Watchman. COMPARISON: CT dated 08/28/2023 ACCESSION NUMBER(S): [id number] ORDERING CLINICIAN: RYAN COBB TECHNIQUE: Using multi [...] chest in 12 months may be obtained. (Antelope MacMahon et al., Guidelines for management of incidental pulmonary nodules detected on CT images: From the Fleischner Society 2017, Radiology. 2017 Mar;284 (1):228-243.) RINA.ACR.IF.1 MACRO: None Signed by: Carlitos Aguilera 12/28/2023 11:32 AM Dictation workstation: [id number] [facility] No Panel Informationon 12-27 1. Status [...] chest in 12 months may be obtained. (Antelope MacMahon et al., Guidelines for management of incidental pulmonary nodules detected on CT images: From the Fleischner Society 2017, Radiology. 2017 Nestor;284 (1):228-243.) RINA.ACR.IF.1 MACRO: None Signed by: Carlitos Aguilera 12/28/2023 11:32 AM Dictation workstation: [id number] [facility]AL Interpreted By: Carlitos Shah, STUDY: CT WATCHMAN FULL CONTRAST; 12/28/2023 10:40 am INDICATION: Signs/Symptoms:A-fib, Post-Watchman. COMPARISON: CT dated 08/28/2023 ACCESSION NUMBER(S): [id number] ORDERING CLINICIAN: RYAN COBB TECHNIQUE: Using multi [...] Post-Watchman. 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 Proteinuria Your Care Team Attending Physician - Trung FERGUSON MD Primary Care Physician - SAM COONEY DO This Is Your Medications List tolterodine (tolterodine 2 mg Cap-ER) Contact prescribing physician if questions or concerns APAP/butalbital/caffeine (APAP/butalbital/caffeine 325 mg-50 mg-40 mg Tab) Misc Prescription (Ioxus B-12 1,000 MCG TABLET) Non-Formulary Medication (Butapap cat 40mg PRN) atorvastatin clopidogrel (clopidogrel 75 mg Tab) doxazosin (doxazosin 4 mg Tab) finasteride (finasteride 5 mg Tab) fluoxetine (FLUoxetine 20 mg Cap) folic acid (folic acid 1 mg Tab) losartan (losartan 100 mg Tab) meclizine (meclizine 25 mg Tab) memantine (memantine 5 mg Tab) spironolactone (spironolactone 25 mg Tab) thyroid desiccated ([facility] Thyroid) Procedures Performed Urethral dilatation (11/03/2022), TURP [...] [facility] [address] , [place] [phone] Medications What How Much When Instructions Changed tolterodine (tolterodine 2 mg Cap-ER) 1 Capsules By Mouth As Directed Take one cap in the morning and one at dinnertime. Pickup at [facility]/pharmacy #[id number] Unchanged APAP/ butalbital/ caffeine (APAP/ butalbital/ caffeine [...] if questions or concerns Unchanged thyroid desiccated ([facility] Thyroid) By Mouth Every day Contact prescribing physician if questions or concerns Pharmacy Information [facility]/pharmacy #[id number]: [address], [place] [phone] Allergies No Known Allergies Problems Ongoing - Any problem that you are currently receiving treatment for. BPH with urinary obstruction Enuresis Hesitancy Hypertension Incomplete bladder emptying Intertrigo mild MS (myocardial infarction) Nocturia Protein in urine Proteinuria [...] not included)... Normal [facility] Patient Educationon 12-03-19 Patient Education [...] health care provider. General instructions ? Take nyzn-dfh-ecffjdq and prescription medicines only as told by [...] monitor yo (more content not included)... Normal [facility] Urology Office/Clinic Noteon 12-03-2023 Urology Office/Clinic [...] morning and night). New rx sent to [facility]. -Double void maneuvers 2. BPH [...] Trung Frost, URL [facility] [address] [facility] [address] [phone] Additional Instructions: 6 mos (increase med dosage) [...] Hesitancy Hypertension Incomplete bladder emptying Intertrigo mild MS (myocardial infarction) Nocturia Protein in urine Proteinuria Smoker Urethral meatal stenosis Urge incontinence Urinary incontinence without sensory awareness Urinary retention Historical No qualifying data Procedure/Surgical History Urethral dilatation (11/03/2022), TURP - Transurethral resection of prostate (08/31/2022), Cystoscopy (01/24/2022), Colonoscopy, Shoulder replacement. Medications APAP/butalbital/caffeine 325 mg-50 mg-40 mg Tab [facility] Thyroid, Oral, Daily atorvastatin, Oral, Daily Butapap [...] lifetime) Tobac (more content not included)... Normal [facility] Comment on above: Result Comment: Elec tronically Signed By: Trung FERGUSON MD\.br\Date and Time Signed: 12/03/23 16:17 EDT\.br\Electronically Co-Signed By: Marcela Lake\.br\Date and Time Co-Signed: 12/03/23 16:16 EDT Police Commanding Officer Details- Texton 11-20-2023 Police Commanding Officer Details- Text Police Commanding Officer Details Entered On: 11/20/2023 9:57 EST Performed On: 11/20/2023 9:56 EST by Sahra Lizarraga RN Police Commanding Officer Details Transport Mode Order Detail EV : [...] : No Pacemaker Order Detail : 0 Police Commanding Officer Details Review Status : Initial Review Nurse Collects Blood Specimens : No Sahra Lizarraga RN - 11/20/2023 9:56 EST Normal [facility] Utilization Review Noteon Utilization Review Note EXT REC DAY 0. CASE CANCELLED DUE TO LOW H&H. Normal [facility] Utilization Review Noteon Utilization Review Note Reg as EXT REC, no documents. NOT IPO Still no information from preaccess yet. Still no information from preaccess yet. Approved for outpatient per preaccess. Normal [facility] HEMOon 11-16-2023 Nucleated RBC 0 /100WBC Normal [facility] Comment on above: Performed By: #### 1 60869, 510234 ####[facility] [address] [place] [id number] Medical Director: Eh Gould MD MAN DIFFon 11-16-[address] 0.12 x1000 Normal 0.00-0.70 [facility] Comment on above: Performed By: #### 1 40726, 282897 ####[facility] [address] [place] [address] Medical Director: Eh Gould MD Absolute Eos Ct 0.07 x1000 Normal 0.00-0.[address] [facility] Comment on above: Performed By: #### 1 76928, 067177 ####[facility] [address] [place] [address] Medical Director: Eh Gould MD Absolute Lymph Ct 1.10 x1000 Low 1.20-4.80 [facility] Comment on above: Performed By: #### 1 97222, 712107 ####[facility] [address] [place] [address] Medical Director: Eh Gould MD Absolute Neutrophil Ct 1.22 x1000 Low 1.40-8.80 [facility] Comment on above: Performed By: #### 1 99924, 358296 ####[facility] [address] [place] [address] Medical Director: Eh Gould MD Absolute Seg Ct 1.10 x1000 Low 1.40-8.[address] [facility] Comment on above: Performed By: #### 1 27904, 763375 ####[facility] [address] [place] [address] Medical Director: Eh Gould MD Band form neutrophils/100 WBC (Bld) 5 % Normal [facility] Comment on above: Performed By: #### 1 56045, 030390 ####[facility] [address] [place] [address] Medical Director: Eh Gould MD Eosinophils/100 WBC (Bld) 3 % Normal [facility] Comment on above: Performed By: #### 1 78416, 910017 ####[facility] [address] [place] [address] Medical Director: Eh Gould MD Lymphocytes/100 WBC (Bld) 46 % Normal [facility] Comment on above: Performed By: #### 1 24735, 741827 ####[facility] [address] [place] [address] Medical Director: Eh Gould MD Macrocytosis Moderate Normal [facility] Comment on above: Performed By: #### 1 72986, 065319 ####[facility] [address] [place] [address] Medical Director: Eh Gould MD Segmented neutrophils/100 WBC (Bld) 46 % Normal [facility] Comment on above: Performed By: #### 1 78301, 933050 ####[facility] [address] [place] [address] Medical Director: Eh Gould MD ABORHon 11-15-2023 ABORH Interpretation Positive Normal [facility] Comment on above: Performed By: #### C [id number], CD:[id number] #### [facility] [address] [place] [address] Market Editor: Eh Gould MD Patient History Check Previous Hx Normal [facility] Comment on above: Performed By: #### C D:[id number], CD:[id number] #### [facility] [address] [place] [address] Market Editor: Eh Gould MD VS 0.8% a cells [address] [facility] Comment on above: Performed By: #### C D:[id number], CD:[id number] #### [facility] [address] [place] [address] Market Editor: Eh Gould MD VS 0.8% b cells 3+ Normal [facility] Comment on above: Performed By: #### C D:[id number], CD:[id number] #### [facility] [address] [place] [address] Market Editor: Eh Gould MD VS Anti-A Unit 4+ Normal [facility] Comment on above: Performed By: #### C D:[id number], CD:[id number] #### [facility] [address] [place] [address] Market Editor: Eh Gould MD VS Anti-B Unit [address] [facility] Comment on above: Performed By: #### C D:[id number], CD:[id number] #### [facility] [address] [place] [address] Market Editor: Eh Gould MD VS Anti-D Unit 4+ [facility] Comment on above: Performed By: #### C D:[id number], CD:[id number] #### [facility] [address] [place] [address] Market Editor: Eh Gould MD ABSCon 11-15-2023 ABSC Final Interp Negative [facility] Comment on above: Performed By: #### C D:[id number], CD:[id number] #### [facility] [address] [place] [address] Market Editor: Eh Gould MD Pt Hx check done? Yes [facility] Comment on above: Performed By: #### C D:[id number], CD:[id number] #### [facility] [address] [place] [address] Market Editor: Eh Gould MD VS SCI Gel 0 [facility] Comment on above: Performed By: #### C D:[id number], CD:[id number] #### [facility] [address] [place] [address] Market Editor: Eh Gould MD VS SCII Gel 0 [facility] Comment on above: Performed By: #### C D:[id number], CD:[id number] #### [facility] [address] [place] [address] Market Editor: Eh Gould MD DVT/VTE Risk Factor-Texton 0 [...] 5 or more = VERY HIGH RISK Dee TOLEDO, Mary Ellen - 11/15/2023 13:48 EST Normal [facility] HEMOon 11-15-2023 DIFF? Yes Normal [facility] Comment on above: Performed By: #### 1 43525, 702548 ####[facility] [address] [place], [place] [id number]) [phone] Director: Eh Gould MD Dx Actions See Notes Abnormal [facility] Comment on above: Result Comment: Scan for RBC Morphology Scan Slide. Perform manual diff if needed. SNV Performed By: #### 1 91034, 263903 ####[facility] [address] [place] [id number]) [phone] Director: Eh Gould MD Erythrocyte distribution width (RBC) [Ratio] 14.5 % Normal 11.5-14.[address] [facility] Comment on above: Performed By: #### 1 48541, 767045 ####[facility] [address] [place], [place] [id number]) [phone] Director: Eh Gould MD Hematocrit (Bld) [Volume fraction] 25.3 % Low 41.0-52.[address] [facility] Comment on above: Performed By: #### 1 85877, 294801 ####[facility] [address] [place], [place] [address]) [phone] Director: Eh Gould MD Hemoglobin (Bld) [Mass/Vol] 8.7 g/dL Low 13.5-17.[address] [facility] Comment on above: Performed By: #### 1 53720, 489593 ####[facility] [address] [place], [place] [id number]) [phone] Director: Eh Gould MD Instr WBC 2.[address] [facility] Comment on above: Performed By: #### 1 26149, 000165 ####[facility] [address] [place] [address] Medical Director: Eh Gould MD MCH (RBC) [Entitic mass] 38.3 pg High 27.0-34.[address] [facility] Comment on above: Performed By: #### 1 , 250928 ####[facility] [address] [place] [address] Medical Director: Eh Gould MD MCHC (RBC) [Mass/Vol] 34.6 g/dL Normal 32.0-37.0 [facility] Comment on above: Performed By: #### 1 , 024886 ####[facility] [address] [place] [address] [facility] Director: Eh Gould MD MCV (RBC) [Entitic vol] 110.6 fL High 80.0-100.[address] [facility] Comment on above: Performed By: #### 1 , 058432 ####[facility] [address] [place] [address] [facility] Director: Eh Gould MD Platelet 142 x10 Low 150-[address] [facility] Comment on above: Performed By: #### 1 , 609180 ####[facility] [address] [place] [address] Medical Director: Eh Gould MD Platelet mean volume (Bld) [Entitic vol] 6.4 fL Low 7.4-10.[address] [facility] Comment on above: Performed By: #### 1 , 085162 ####[facility] [address] [place] [address] Medical Director: Eh Gould MD RBC 2.29 x10 Low 4.70-6.[address] [facility] Comment on above: Result Comment: Note : RBC morphology is normal unless otherwise stated. Evaluation performed only if differential is requested. Performed By: #### 1 81259, 213782 ####[facility] [address] [place] [address] [facility] Director: Eh Gould MD WBC 2.4 x10 Low 4.5-11.[address] [facility] Comment on above: Performed By: #### 1 31333, 678399 ####[facility] [address] [place] [address] [facility] Director: Eh Gould MD Preadmission Testing Progres [...] No Orders received during the phone conversation. [facility] Preadmission Testing Progress Note PREADMISSION TESTING [...] visit, must be reported to your surgeon. [facility] UAon 11-15-2023 Appearance, U Clear Normal [facility] Comment on above: Performed By: #### 1 25177 #### [facility] [address] [place] [address] Market Editor: Eh Gould MD Bilirubin, U Negative Normal Negative [facility] Comment on above: Performed By: #### 1 27722 #### [facility] [address] [place] [address] Market Editor: Eh Gould MD Blood, U Small Abnormal Negative [facility] Comment on above: Performed By: #### 1 89117 #### [facility] [address] [place] [address]247 Market Editor: Eh Gould MD Color, U Yellow Normal [facility] Comment on above: Performed By: #### 1 41336 #### [facility] [address] [place] [address] Market Editor: Eh Gould MD Glucose Qual, U Negative Normal Negative [facility] Comment on above: Performed By: #### 1 73397 #### [facility] [address] [place] [address] Market Editor: Eh Gould MD Ketones, U Negative Normal Negative [facility] Comment on above: Performed By: #### 1 55324 #### [facility] [address] [place] [address] Market Editor: Eh Gould MD Leukocyte Esterase, U Negative Normal Negative [facility] Comment on above: Performed By: #### 1 05044 #### [facility] [address] [place] [address]76 Market Editor: Eh Gould MD Mucous, U Occasional Normal [facility] Comment on above: Performed By: #### 1 27136 #### [facility] [address] [place] [address] Market Editor: Eh Gould MD Nitrite, U Negative Normal Negative [facility] Comment on above: Performed By: #### 1 49695 #### [facility] [address] [place] [address] Market Editor: Eh Gould MD pH, U 5.0 Normal 4.5-8.[address] [facility] Comment on above: Performed By: #### 1 83259 #### [facility] [address] [place] [address]642 Market Editor: Eh Gould MD Protein, U Negative Normal Negative [facility] Comment on above: Performed By: #### 1 02100 #### [facility] [address] [place] [address] 96398 Market Editor: Eh Gould MD RBC/HPF, U <1 Normal 0-[address] [facility] Comment on above: Performed By: #### 1 68209 #### [facility] [address] [place] [address] 80169 Market Editor: Eh Gould MD Specific [place], U 1.014 Normal 1.001-1. [address] [facility] Comment on above: Performed By: #### 1 33839 #### [facility] [address] [place] [address] Market Editor: Eh Gould MD Squamous Epithelial Cells, U <[address] [facility] Comment on above: Performed By: #### 1 57582 #### [facility] [address] [place] [address]2533 Market Editor: Eh Gould MD U MICRO Indicated Normal [facility] Comment on above: Performed By: #### 1 32170 #### [facility] [address] [place] [address]99 Market Editor: Eh Gould MD Urobilinogen Qual, U <2.0 mg/dl Normal <2.0 mg/dl [facility] Comment on above: Result Comment: EU/d l and mg/dl are equivalent units. Performed By: #### 1 76440 #### [facility] [address] [place] [address] 34715 Market Editor: Eh Gould MD WBC/HPF, U 2 #/HPF Normal 0-[address] [facility] Comment on above: Performed By: #### 1 54504 #### [facility] [address] [place] [address] Market Editor: Eh Gould MD Preadmission Testing Progres s Noteon 11-14-2023 Preadmission Testing Progress Note Registration called P.A.T.,stating the pt. may not show and reschedule. Pt did not show for appointment. Called Dr. Shaffer's office. Spoke to Alexandra, she stated the CT foe watchman check is scheduled for the 20 of November and is needed for the clearance to be completed. Normal [facility] ABORHon 10-15-2023 ABORH CK Interp Positive Normal [facility] Comment on above: Performed By: #### C D:[id number], CD:[id number] #### [facility] [address] [place] [address] Market Editor: Eh Gould MD Anti-A recheck 4+ Normal [facility] Comment on above: Performed By: #### C D:[id number], CD:[id number] #### [facility] [address] [place] [address] Market Editor: Eh Gould MD Anti-B recheck [address] [facility] Comment on above: Performed By: #### C D:[id number], CD:[id number] #### [facility] [address] [place] [address] Market Editor: Eh Gould MD Anti-D recheck 3+ Normal [facility] Comment on above: Performed By: #### C D:[id number], CD:[id number] #### [facility] [address] [place] [address] Market Editor: Eh Gould MD Pathologist Reviewon 024 Diff [...] ruled out. Clinical correlation is recommended. Normal [facility] Comment on above: Order Comment: Added on by Discern Expert Rule. Result Comment: CAMILA ZEPEDA (Electronic Signature) Date Verified 10/15/23 Performed By: #### 9 [id number], 488036, 5676349, 395123, 233628, 734652 ####[facility] Xwgcmcff85570 [place] [address] Medical Director: Eh Gould MD Preadmission Testing [...] who [facility] due to weather conditions. [...] voice mail all available numbers for office, transfill technician and PA. Left messages on voice mail [...] patient and and notify surgery scheduling. Normal [facility] Utilization Review Noteon Utilization Review [...] SHOULDER REPLACEMENT CANCELED PER PREACCESS. CANCELLED. Normal [facility] ABORHon 10-12-2023 ABORH Interpretation Positive Normal [facility] Comment on above: Performed By: #### C D:[id number], CD:[id number] #### [facility] [address] [place], [place] [phone] Market Editor: Eh Gould MD Patient History Check No Previous Hx Normal [facility] Comment on above: Result Comment: 09/24 10:30 [id number] ABO Recheck to be ordered on admit. Surgery Date: 10/16/23 Performed By: #### C D:[id number], CD:[id number] #### [facility] [address] [place] [address] Market Editor: Eh Gould MD VS 0.8% a cells 0 [facility] Comment on above: Performed By: #### C D:[id number], CD:[id number] #### [facility] [address] [place], [place] [phone] Market Editor: Eh Gould MD VS 0.8% b cells 3+ [facility] Comment on above: Performed By: #### C D:[id number], CD:[id number] #### [facility] [address] [place], [place] [phone] Market Editor: Eh Gould MD VS Anti-A Unit 4+ Normal [facility] Comment on above: Performed By: #### C D:[id number], CD:[id number] #### [facility] [address] [place] [address] Market Editor: Eh Gould MD VS Anti-B Unit [address] [facility] Comment on above: Performed By: #### C D:[id number], CD:[id number] #### [facility] [address] [place] [address] Market Editor: Eh Gould MD VS Anti-D Unit 4+ [facility] Comment on above: Performed By: #### C D:[id number], CD:[id number] #### [facility] [address] [place] [address] Market Editor: Eh Gould MD ABSCon 10-12-2023 ABSC Final Interp Negative [facility] Comment on above: Performed By: #### C D:[id number], CD:[id number] ####[facility] [address] [place] [address] Medical Director: Eh Gould MD Pt Hx check done? Yes [facility] Comment on above: Performed By: #### C D:[id number], CD:[id number] ####[facility] [address] [place] [address] Medical Director: Eh Gould MD VS SCI Gel 0 [facility] Comment on above: Performed By: #### C D:[id number], CD:[id number] ####[facility] V[address]awzspu[address]60 [place] [address] Medical Director: Eh Gould MD VS SCII Gel 0 [facility] Comment on above: Performed By: #### C D:[id number], CD:[id number] ####[facility] [address] [place] [address] Medical Director: Eh Gould MD APTTon 10-12-2023 aPTT Coag (Bld) [Time] 29.5 s Normal 27.0-38.0 [facility] Comment on above: Result Comment: APTT Interpretation: This test has not been validated to monitor heparin therapy. APTT test is used as an initial test for suspected bleeding disorder. Anti-Xa UFH test is used to monitor heparin therapy. Performed By: #### 9 629550, 575095, 1566107, 585169, 529373, 965482 ####[facility] Wncujuog81587 [place], [place] [address]) [phone] Director: Eh Gould MD AUTO DIFFon 10-12-2023 Baso Count 0.02 x1000 Normal 0.00-0.[address] [facility] Comment on above: Performed By: #### 9 719154, 461271, 4222795, 387602, 716685, 724673 ####[facility] Z[address]qfdfc[address]11 [place] [address] Medical Director: Eh Gould MD Basos % 0.8 % Normal [facility] Comment on above: Performed By: #### 9 951297, 791182, 8550315, 600862, 703411, 276354 ####[facility] Tactjufa53615 [place], [place] [address]) [phone] Director: Eh Gould MD Eos Count 0.21 x1000 Normal 0.00-0.[address] [facility] Comment on above: Performed By: #### 9 486937, 264428, 9368695, 813545, 116742, 567833 ####[facility] Nhkgwqxy73587 [place] [address] Medical Director: Eh Gould MD Eosinophils/100 WBC (Bld) 7.5 % Normal [facility] Comment on above: Performed By: #### 9 382509, 749365, 9766906, 216121, 602322, 474981 ####[facility] Ahmniupr86097 [place] [address] Medical Director: Eh Gould MD Lymph Count 1.03 x1000 Low 1.20-4.[address] [facility] Comment on above: Performed By: #### 9 903353, 904671, 1128979, 766917, 104453, 465379 ####[facility] Bicjatjs50754 [place] [address] Medical Director: Eh Gould MD Lymphocytes/100 WBC (Bld) 36.5 % Normal [facility] Comment on above: Performed By: #### 9 032149, 657448, 4640137, 903661, 099895, 500714 ####[facility] Ceeyvacr98142 [place] [address] Medical Director: Eh Gould MD Jessamine Count 0.08 x1000 Low 0.10-1.[address] [facility] Comment on above: Performed By: #### 9 509966, 697316, 6188923, 127262, 401337, 130555 ####[facility] Auhxdlyy06146 [place] [address] Medical Director: Eh Gould MD Monocytes/100 WBC (Bld) 2.8 % Normal [facility] Comment on above: Performed By: #### 9 060095, 591648, 1105047, 613311, 571098, 549768 ####[facility] Lsfxhyqz15213 [place] [address] Medical Director: Eh Gould MD Neutrophil Count (ANC) 1.48 x1000 Normal 1.40-8.80 [facility] Comment on above: Performed By: #### 9 856723, 790835, 4459034, 488004, 712693, 447643 ####[facility] Mwppjudz73354 [place] [address] Medical Director: Eh Gould MD Neutrophils/100 WBC (Bld) 52.5 % Normal [facility] Comment on above: Performed By: #### 9 915264, 245643, 8792660, 384227, 691307, 949041 ####[facility] [address]17[address] [place], [place] [address]) [phone] Director: Eh Gould MD Red Blood Cell Morphology See Notes Abnormal [facility] Comment on above: Result Comment: Macr ocytosis 2+ Rouleaux 1+ Performed By: #### 9 313661, 012721, 0540567, 319200, 377999, 709253 ####[facility] Uihweseg[address]56 [place] [address] Medical Director: Eh Gould MD Scan Differential Diff Scd Normal [facility] Comment on above: Result Comment: Slid e reviewed by technologist. Performed By: #### 9 979167, 099853, 5607876, 628978, 717419, 962159 ####[facility] Nlpmbegz81155 [place], [place] [address]) [phone] Director: Eh Gould MD BASICMETAon 10-12-2023 Calcium [Mass/Vol] 10.1 mg/dL Normal 8.7-10.4 [facility] Comment on above: Performed By: #### 9 161167, 689029, 9972480, 972725, 756064, 011252 ####[facility] Lwauryuw[address]47 [place] [address] Medical Director: Eh Gould MD Chloride [Moles/Vol] 103 mmol/L Normal 98-107 [facility] Comment on above: Performed By: #### 9 407326, 360653, 7349737, 967317, 113383, 724433 ####[facility] Sicgqepy44564 [place] [address] Medical Director: Eh Gould MD CO2 [Moles/Vol] 27.0 mmol/L Normal 20.0-31.0 [facility] Comment on above: Performed By: #### 9 861946, 790737, 4825068, 039668, 566176, 640895 ####[facility] Iixuphgz08169 [place] [address] Medical Director: Eh Gould MD Creatinine [Mass/Vol] 1.2 mg/dL High 0.6-1.1 [facility] Comment on above: Performed By: #### 9 678286, 006458, 9456471, 891101, 101303, 696088 ####[facility] Luaoucxm69046 [place], [place] [address]) [phone] Director: Eh Gould MD GFR AA >60 [facility] Comment on above: Result Comment: Afri can Beninese GFR Calc Medical judgement is necessary to [...] for drug dosing. Performed By: #### 9 180797, 369710, 9620461, 615479, 504144, 169638 ####[facility] Kdjxebbw96596 [place] [address] Medical Director: Eh Gould MD Glomerular Filtration Rate 59 mL/min/1.73m? Normal [facility] Comment on above: Result Comment: [...] for drug dosing. Performed By: #### 9 748775, 765115, 9545558, 556809, 979662, 320018 ####[facility] Vlspbija51834 [place] [address] Medical Director: Eh Gould MD Glucose [Mass/Vol] 111 mg/dL High 74-106 [facility] Comment on above: Performed By: #### 9 738389, 540940, 2488407, 107575, 926906, 718226 ####[facility] Tjvveldy37608 [place] [address] Medical Director: Eh Gould MD Osmolality [Osmolality] 281 mosm/kg Normal 275-[address] [facility] Comment on above: Performed By: #### 9 971905, 191664, 8270752, 308176, 116398, 166677 ####[facility] Fcfzyqop93321 [place], [place] [address]) [phone] Director: Eh Gould MD Potassium [Moles/Vol] 4.0 mmol/L Normal 3.5-5.1 [facility] Comment on above: Performed By: #### 9 481017, 794637, 0075489, 274234, 666377, 445751 ####[facility] Bhqqzwxh75123 [place] [address] Medical Director: Eh Gould MD Sodium [Moles/Vol] 140 mmol/L Normal 135-145 [facility] Comment on above: Performed By: #### 9 094363, 599775, 3582475, 409432, 483751, 114354 ####[facility] Jjtuarxq50836 [place] [address] Medical Director: Eh Gould MD Urea nitrogen [Mass/Vol] 16 mg/dL Normal 9-[address] [facility] Comment on above: Result Comment: - Ve nipuncture should occur prior to N-Acetyl Cysteine (NAC) or Metamizole (Sulpyrine) administration due to the potential for falsely depressed results. - Blood samples from some patients with monoclonal gammopathies may produce falsely elevated results Performed By: #### 9 513355, 812188, 8157089, 579838, 092065, 420745 ####[facility] Xrgqostm53447 [place] [address] Medical Director: Eh Gould MD Urea nitrogen/Creatinine [Mass ratio] 13.3 mg/mg Normal [facility] Comment on above: Performed By: #### 9 940060, 255263, 3163816, 164781, 120088, 475650 ####[facility] Vmvffhdp17357 [place] [address] Medical Director: Eh Gould MD HEMOon 10-12-2023 DIFF? No Normal [facility] Comment on above: Performed By: #### 9 388475, 857975, 2849224, 780144, 748241, 784951 ####[facility] Lgbrozmv29101 [place] [address] Medical Director: Eh Gould MD HEM PATH REVIEW See Diff Review Interp Normal [facility] Comment on above: Performed By: #### 9 364720, 885341, 6679793, 675301, 442802, 338905 ####[facility] Plnxgjde84596 [place] [address] Medical Director: Eh Gould MD Nucleated RBC 0 /100WBC Normal [facility] Comment on above: Performed By: #### 9 027033, 820011, 4439102, 544790, 179734, 919680 ####[facility] Tbyobivr24504 [place] [address] Medical Director: Eh Gould MD DxH Actions See Notes Abnormal [facility] Comment on above: Result Comment: Scan for RBC Morphology Scan Slide. Perform manual diff if needed. SNV Performed By: #### 9 115150, 861875, 3117630, 615062, 850397, 740741 ####[facility] Hvwvbauj44759 [place] [address] Medical Director: Eh Gould MD Erythrocyte distribution width (RBC) [Ratio] 13.5 % Normal 11.5-14.[address] [facility] Comment on above: Performed By: #### 9 326096, 178897, 9129746, 032602, 506976, 833967 ####[facility] Nspofkrz34173 [place], [place] [address]) [phone] Director: Eh Gould MD Hematocrit (Bld) [Volume fraction] 27.4 % Low 41.0-52.[address] [facility] Comment on above: Performed By: #### 9 475078, 969495, 3523567, 385044, 607942, 629017 ####[facility] Xlamzspq98703 [place], [place] [address]) [phone] Director: Eh Gould MD Hemoglobin (Bld) [Mass/Vol] 9.4 g/dL Low 13.5-17.[address] [facility] Comment on above: Performed By: #### 9 924663, 963610, 0417578, 897140, 120553, 704437 ####[facility] Siledwcs44702 [place], [place] [address]) [phone] Director: Eh Gould MD Instr WBC 2.[address] [facility] Comment on above: Performed By: #### 9 687037, 893443, 7866717, 232740, 312232, 664762 ####[facility] Pvzamctt83674 [place], [place] [address]) [phone] Director: Eh Gould MD MCH (RBC) [Entitic mass] 37.4 pg High 27.0-34.[address] [facility] Comment on above: Performed By: #### 9 609956, 823282, 1632272, 540553, 092840, 467606 ####[facility] Ysfnaswx41308 [place], [place] [address]) [phone] Director: Eh Gould MD MCHC (RBC) [Mass/Vol] 34.2 g/dL Normal 32.0-37.0 [facility] Comment on above: Performed By: #### 9 399189, 274481, 0567905, 521151, 800003, 022801 ####[facility] Xygxbzge73752 [place] [address] Medical Director: Eh Gould MD MCV (RBC) [Entitic vol] 109.4 fL High 80.0-100.[address] [facility] Comment on above: Performed By: #### 9 840014, 359951, 4271432, 396492, 502939, 732397 ####[facility] Pimlgfrx77700 [place] [address] Medical Director: Eh Gould MD Platelet 165 x10 Normal 150-[address] [facility] Comment on above: Performed By: #### 9 023094, 871967, 6174608, 211176, 738650, 309642 ####[facility] Wrlswdcl88[address] [place] [address] Medical Director: Eh Gould MD Platelet mean volume (Bld) [Entitic vol] 6.3 fL Low 7.4-10.[address] [facility] Comment on above: Performed By: #### 9 087666, 634424, 6935167, 832998, 744540, 187281 ####[facility] Jinpexrz64987 [place] [address] Medical Director: Eh Gould MD RBC 2.51 x10 Low 4.70-6.[address] [facility] Comment on above: Result Comment: Note : RBC morphology is normal unless otherwise stated. Evaluation performed only if differential is requested. Performed By: #### 9 398686, 756412, 2935494, 413136, 601718, 216384 ####[facility] Rtuvgegs53069 [place] [address] Medical Director: Eh Gould MD WBC 2.8 x10 Low 4.5-11.[address] [facility] Comment on above: Performed By: #### 9 372995, 828791, 0275281, 351326, 222583, 216141 ####[facility] Zyrdkkzg47488 [place] [address] Medical Director: Eh Gould MD PT INRon 10-12-2023 INR Coag (PPP) [Relative time] 1.2 {INR} Normal [facility] Comment on above: Result Comment: INR Reference Range: Normal reference range for INR on patients not on anticoagulant therapy: 0.9-1.1 General therapeutic range for patients on anticoagulant therapy: 2.0-3.5 Performed By: #### 9 127921, 046936, 8942887, 438137, 858540, 941619 ####[facility] Offcpwlx05743 [place] [address] Medical Director: Eh Gould MD Protime Patient 13.4 seconds High 9.8-12.8 [facility] Comment on above: Performed By: #### 9 388171, 129662, 7694150, 425420, 179064, 041605 ####[facility] Mmszbdok73379 [place] [address] Medical Director: Eh Gould MD [...] surgeon. Simba TOLEDO, Dante Lanier on Normal [facility] UAon 10-12-2023 U MICRO Indicated Normal [facility] Comment on above: Performed By: #### 1 81365 #### [facility] [address] [place] [address] Market Editor: Eh Gould MD Appearance, U Clear Normal [facility] Comment on above: Performed By: #### 1 01647 #### [facility] [address] [place] [address] Market Editor: Eh Gould MD Bilirubin, U Negative Normal Negative [facility] Comment on above: Performed By: #### 1 36944 #### [facility] [address] [place] [address] Market Editor: Eh Gould MD Blood, U Moderate Abnormal Negative [facility] Comment on above: Performed By: #### 1 64347 #### [facility] [address] [place] [address] Market Editor: Eh Gould MD Color, U Yellow Normal [facility] Comment on above: Performed By: #### 1 62426 #### [facility] [address] [place] [address] Market Editor: Eh Gould MD Glucose Qual, U Negative Normal Negative [facility] Comment on above: Performed By: #### 1 20260 #### [facility] [address] [place] [address] Market Editor: Eh Gould MD Hyaline Cast <[address] [facility] Comment on above: Performed By: #### 1 29345 #### [facility] [address] [place] [address] Market Editor: Eh Gould MD Ketones, U Negative Normal Negative [facility] Comment on above: Performed By: #### 1 68145 #### [facility] [address] [place] [address] Market Editor: Eh Gould MD Leukocyte Esterase, U Negative Normal Negative [facility] Comment on above: Performed By: #### 1 59181 #### [facility] [address] [place] [address] Market Editor: Eh Gould MD Mucous, U Occasional Normal [facility] Comment on above: Performed By: #### 1 74514 #### [facility] [address] [place] [address] Market Editor: Eh Gould MD Nitrite, U Negative Normal Negative [facility] Comment on above: Performed By: #### 1 92181 #### [facility] [address] [place] [address] Market Editor: Eh Gould MD pH, U 5.0 Normal 4.5-8.[address] [facility] Comment on above: Performed By: #### 1 68552 #### [facility] [address] [place] [address] Market Editor: Eh Gould MD Protein, U Negative Normal Negative [facility] Comment on above: Performed By: #### 1 29649 #### [facility] [address] [place] [address] Market Editor: Eh Gould MD RBC/HPF, U 5 #/HPF High 0-[address] [facility] Comment on above: Performed By: #### 1 32535 #### [facility] [address] [place] [address] Market Editor: Eh Gould MD Specific [place], U 1.016 Normal 1.001-1. [address] [facility] Comment on above: Performed By: #### 1 15349 #### [facility] [address] [place] [address] Market Editor: Eh Gould MD Urobilinogen Qual, U <2.0 mg/dl Normal <2.0 mg/dl [facility] Comment on above: Result Comment: EU/d l and mg/dl are equivalent units. Performed By: #### 1 49918 #### [facility] [address] [place] [address] Market Editor: Eh Gould MD WBC/HPF, U 7 #/HPF High 0-[address] [facility] Comment on above: Performed By: #### 1 82184 #### [facility] [address] [place] [address] Market Editor: Eh Gould MD Activated clotting timeon ACT Coag (Bld) 271 s High 89-169 [facility] Comment on above: Result Comment: Targ et ACT range will vary based on the patient population, clinical status, and surgical intervention occurring. Performed By: #### 3 184-9 #### JAVAD Stephenson ([id number]) [facility] ([facility]) [address] [place] [address] WATCHMAN FULL CONTRASTon 08-28-2023 CT WATCHMAN FULL CONTRAST Interpreted By: Purnima Lira, STUDY: CT WATCHMAN FULL CONTRAST; 08/28/2023 12:00 pm INDICATION: Signs/Symptoms:pre Watchman procedure SAME DAY CT. COMPARISON: None. ACCESSION NUMBER(S): [id number] ORDERING CLINICIAN: RYAN COBB TECHNIQUE: Using multi [...] Purnima Lira 09/06/2023 9:28 AM Dictation workstation: [id number] [facility] ECG 12-LEADon 08-28-2023 ECG 12-LEAD Ventricular Rate 63 Atrial Rate 63 P-R Interval 196 QRS Duration 86 Q-T Interval 402 QTC Calculation(Bazett) 411 P Delphos 67 R Delphos -1 T Delph[place] 20 QRS Count 10 Q Onset 223 P Onset 125 P Offset 180 T Offset 424 QTC Fredericia 408 Diagnosis Normal sinus rhythm Inferior infarct Possible Anterior infarct Abnormal ECG Confirmed by Juan R Obrien ([id number]) on 08/30/2023 3:59:32 PM Normal [facility] STRUCTURAL HEART PROCEDUREon 08-28-2023 STRUCTURAL HEART PROCEDURE [facility], [facility]aster, [address] [place] [address] Cardiovascular Catheterization Report Patient Name: NEIL WILCOX Performing Physician: [id number] Cobb MD Study Date: 08/28/2023 Verifying Physician: [id number] Cobb MD MRN/PID: [id number] Potato Sorter/Co-scrub: Ordering Physician: [id number] COBB Date of 1945 Fellow: [id number] Adam Benedict /Age: years Gender: M Fellow: [...] guidance, transseptal puncture was with a versacross (access [employer]), accessing the left atrium. The transseptal tract was then dilated with a Watchman Double Curve access sheath and the ICE probe was advanced through the dilated tract into the left atrium. Next, a 6 Telugu angled pigtail was advanced through the delivery [...] CPT Codes: Perc left atrial appendage closure (LAAC)-24920 [id number] Ryan Cobb MD Performing Physician Final [facility] TRANSTHORACIC ECHO (TTE) [facility] ITEDon 08-28-2023 TRANSTHORACIC ECHO (TTE) [facility], [address] [place] [address] and TRANSTHORACIC ECHOCARDIOGRAM REPORT Patient Name: ABDOULAYECassie WILCOX Reading Physician: [id number] Jacobo French MD Study Date: 08/28/2023 Ordering Provider: [id number] LUCAS PEARCE MRN/PID: [id number] Fellow: Nurse: Date of 1945 Pantographer: Moncho Infante RDCS /Age: years Gender: M Additional Staff: Height: 175.26 cm Admit Date: 08/28/2023 Weight: 79.38 kg Admission Status: Inpatient - Routine BSA: 1.95 m2 [facility] Cath Location: Lab Blood Pressure: 137 /78 mmHg Study Type: TRANSTHORACIC ECHO (TTE) LIMITED Diagnosis/ICD: Unspecified atrial fibrillation-I48.91 Indication: POST LAAO CPT Code: Echo Limited-82760 Patient History: Pertinent History: HTN; HLD; paroxysmal [...] 72.4 g/m2 LV % FS 32.6 % [id number] Jacobo French MD Electronically signed on 08/28/2023 at 5:50:59 PM Final Normal [facility] TRANSTHORACIC ECHO (TTE) LIMITED [facility], [address] [place] [address] and TRANSTHORACIC ECHOCARDIOGRAM REPORT Patient Name: NEIL Aldana Physician: [id number] Kandis Chau MD Study Date: 08/28/2023 Ordering Provider: [id number] LUCAS PEARCE MRN/PID: [id number] Fellow: Nurse: Date of /Age: 1 1945 / 77 years Pantographer: Moncho Infante FLORENCE Gender: M Additional Staff: Height: 175.26 cm Admit Date: 08/28/2023 Weight: 79.38 kg Admission Status: Inpatient - Routine BSA: 1.95 m2 Department Location: [facility] Non Invasive Study Type: TRANSTHORACIC ECHO (TTE) LIMITED Diagnosis/ICD: Unspecified atrial fibrillation-I48.91 Indication: Pre-LAAO CPT Code: Echo Limited-28097 Patient History: Pertinent History: HTN; HLD: paroxysmal [...] VALVE/RVSP: Normal Ranges: IVC Diam: 1.50 cm [id number] Kandis Chau MD Electronically signed on 08/28/2023 at 3:17:19 PM Final Normal [facility] US Heart Transthoracicon [facility], [address] [place] [address] and TRANSTHORACIC ECHOCARDIOGRAM REPORT Patient Name: NEIL WILCOX Reading Physician: [id number] Kandis Chau MD Study Date: 08/28/2023 Ordering Provider: [id number] LUCAS PEARCE MRN/PID: [id number] Fellow: Nurse: Date of /Age: 1 1945 / 77 years Pantographer: Moncho Infante RDCS Gender: M Additional Staff: Height: 175.26 cm Admit Date: 08/28/2023 Weight: 79.38 kg Admission Status: Inpatient - Routine BSA: 1.95 m2 Department Location: [facility] Non Invasive Study Type: TRANSTHORACIC ECHO (TTE) LIMITED Diagnosis/ICD: Unspecified atrial fibrillation-I48.91 Indication: Pre-LAAO CPT Code: Echo Limited-49428 Patient History: Pertinent History: HTN; HLD: paroxysmal [...] VALVE/RVSP: Normal Ranges: IVC Diam: 1.50 cm [id number] Kandis Chau MD Electronically signed on 08/28/2023 at 3:17:19 PM Final AIYANAO Kandis Chau MD - 08/28/2023 [facility], [address] [place] [address] and TRANSTHORACIC ECHOCARDIOGRAM REPORT Patient Name: NEIL SAUCEDOUBB Reading Physician: [id number] Kandis Chau MD Study Date: 08/28/2023 Ordering Provider: [id number] LUCAS PEARCE MRN/PID: [id number] Fellow: Nurse: Date of /Age: 1 1945 / 77 years Pantographer: Moncho Infante RDCS Gender: M Additional Staff: Height: 175.26 cm Admit Date: 08/28/2023 Weight: 79.38 kg Admission Status: Inpatient - Routine BSA: 1.95 m2 Department Location: [facility] Non Invasive Study Type: TRANSTHORACIC ECHO (TTE) LIMITED Diagnosis/ICD: Unspecified atrial fibrillation-I48.91 Indication: Pre-LAAO CPT Code: Echo Limited-44492 Patient History: Pertinent History: HTN; HLD: paroxysmal [...] VALVE/RVSP: Normal Ranges: IVC Diam: 1.50 cm [id number] Kandis Chau MD Electronically signed on 08/28/2023 at 3:17:19 PM Final [facility] Work Phone: US Heart TransthoracicOrdere d By: Kandis Chau on 08-28-2023 [facility] Work Phone: Creatinineon 08-22-2023 Creatinine [Mass/Vol] 1.23 mg/dL Normal 0.50-1.30 [facility] Comment on above: Performed By: #### 2 160-0 #### LINDA GALLAGHER ([id number]) [facility] ([facility]) [address] [place] [address]28 Creatinine [Mass/Vol]on 07-26 GFR/1.73 sq M.predicted MDRD (S/P/Bld) [Vol rate/Area] 61 mL/min/1.73m*2 Normal >60 [facility] Comment on above: Result Comment: Calc ulations of estimated GFR are performed using the 2020 CKD-EPI Study Refit equation without the race variable for the IDMS-Traceable creatinine methods. https://jasn.asnjournals.org/content/early//ASN.80893 48577 Performed By: #### 2 160-0 #### LINDA GALLAGHER ([id number]) [facility] ([facility]) [address] [place] [address] 37602 CBC W Auto Differential pane l (Bld)on 07-31-2023 Basophils (Bld) [#/Vol] 10*3/uL Normal <0.11 [facility] Comment on above: Order Comment: Speci men Type: BLOOD SPECIMEN Ordering Facility: External Submitter Address: , , Performed By: #### 5 7021-8 #### [facility] CLIA [id number] [address] [place] [address] [place] Basophils/100 WBC (Bld) 0.3 % Normal [facility] Comment on above: Order Comment: Speci men Type: BLOOD SPECIMEN Ordering Facility: External Submitter Address: , , Performed By: #### 5 7021-8 #### [facility] CLIA [id number] [address] [place] [address] [place] CBC W Differential panel, method unspecified (Bld) Done Normal [facility] Comment on above: Order Comment: Speci men Type: BLOOD SPECIMEN Ordering Facility: External Submitter Address: , , Performed By: #### 5 7021-8 #### [facility] CLIA [id number] [address] [place] [address] [place] Differential cell count method Nom (Bld) Auto Normal [facility] Comment on above: Order Comment: Speci men Type: BLOOD SPECIMEN Ordering Facility: External Submitter Address: , , Performed By: #### 5 7021-8 #### [facility] CLIA [id number] [address] [place] [address] [place] Eosinophils (Bld) [#/Vol] 0.22 10*3/uL Normal <0.46 [facility] Comment on above: Order Comment: Speci men Type: BLOOD SPECIMEN Ordering Facility: External Submitter Address: , , Performed By: #### 5 7021-8 #### [facility] CLIA [id number] [address] [place] [address] [place] Eosinophils/100 WBC (Bld) 6.5 % Normal [facility] Comment on above: Order Comment: Speci men Type: BLOOD SPECIMEN Ordering Facility: External Submitter Address: , , Performed By: #### 5 7021-8 #### [facility] CLIA [id number] [address] [place] [address] [place] Erythrocyte distribution width (RBC) [Ratio] 13.0 % Normal 11.5-15.0 [facility] Comment on above: Order Comment: Speci men Type: BLOOD SPECIMEN Ordering Facility: External Submitter Address: , , Performed By: #### 5 7021-8 #### [facility] CLIA [id number] [address] [place] [address] [place] Hematocrit (Bld) [Volume fraction] 31.3 % Low 39.0-51.0 [facility] Comment on above: Order Comment: Speci men Type: BLOOD SPECIMEN Ordering Facility: External Submitter Address: , , Performed By: #### 5 7021-8 #### [facility] CLIA [id number] [address] [place] [address] [place] Hemoglobin (Bld) [Mass/Vol] 10.4 g/dL Low 13.0-17.0 [facility] Comment on above: Order Comment: Speci men Type: BLOOD SPECIMEN Ordering Facility: External Submitter Address: , , Performed By: #### 5 7021-8 #### [facility] CLIA [id number] [address] [place] [address] [place] Immature granulocytes (Bld) [#/Vol] 10*3/uL Normal <0.10 [facility] Comment on above: Order Comment: Speci men Type: BLOOD SPECIMEN Ordering Facility: External Submitter Address: , , Performed By: #### 5 7021-8 #### [facility] CLIA [id number] [address] [place] [address] [place] Immature granulocytes/100 WBC (Bld) 0.0 % Normal [facility] Comment on above: Order Comment: Speci men Type: BLOOD SPECIMEN Ordering Facility: External Submitter Address: , , Performed By: #### 5 7021-8 #### [facility] CLIA [id number] [address] [place] [address] [place] Lymphocytes (Bld) [#/Vol] 1.06 10*3/uL Normal 1.00-4.00 [facility] Comment on above: Order Comment: Speci men Type: BLOOD SPECIMEN Ordering Facility: External Submitter Address: , , Performed By: #### 5 7021-8 #### [facility] CLIA [id number] [address] [place] [address] [place] Lymphocytes/100 WBC (Bld) 31.2 % Normal [facility] Comment on above: Order Comment: Speci men Type: BLOOD SPECIMEN Ordering Facility: External Submitter Address: , , Performed By: #### 5 7021-8 #### [facility] CLIA [id number] [address] [place] [address] [place] MCH (RBC) [Entitic mass] 37.3 pg High 26.0-34.0 [facility] Comment on above: Order Comment: Speci men Type: BLOOD SPECIMEN Ordering Facility: External Submitter Address: , , Performed By: #### 5 7021-8 #### [facility] CLIA [id number] [facility] [place] [address] [place] MCHC (RBC) [Mass/Vol] 33.2 g/dL Normal 30.5-36.0 [facility] Comment on above: Order Comment: Speci men Type: BLOOD SPECIMEN Ordering Facility: External Submitter Address: , , Performed By: #### 5 7021-8 #### [facility] CLIA [id number] [address] [place] [address] [place] MCV (RBC) [Entitic vol] 112.2 fL High 80.0-100.0 [facility] Comment on above: Order Comment: Speci men Type: BLOOD SPECIMEN Ordering Facility: External Submitter Address: , , Performed By: #### 5 7021-8 #### [facility] CLIA [id number] [address] [place] [address] [place] Monocytes (Bld) [#/Vol] 0.13 10*3/uL Normal <0.87 [facility] Comment on above: Order Comment: Speci men Type: BLOOD SPECIMEN Ordering Facility: External Submitter Address: , , Performed By: #### 5 7021-8 #### [facility] CLIA [id number] [address] [place] [address] [place] Monocytes/100 WBC (Bld) 3.8 % Normal [facility] Comment on above: Order Comment: Speci men Type: BLOOD SPECIMEN Ordering Facility: External Submitter Address: , , Performed By: #### 5 7021-8 #### [facility] CLIA [id number] [address] [place] [id number] [place] Neutrophils (Bld) [#/Vol] 1.98 10*3/uL Normal 1.45-7.50 [facility] Comment on above: Order Comment: Speci men Type: BLOOD SPECIMEN Ordering Facility: External Submitter Address: , , Performed By: #### 5 7021-8 #### [facility] CLIA [id number] [address] [place] [address] [place] Neutrophils/100 WBC (Bld) 58.2 % Normal [facility] Comment on above: Order Comment: Speci men Type: BLOOD SPECIMEN Ordering Facility: External Submitter Address: , , Performed By: #### 5 7021-8 #### [facility] CLIA [id number] [address] [place] [address] [place] Nucleated RBC (Bld) [#/Vol] 10*3/uL Normal <0.01 [facility] Comment on above: Order Comment: Speci men Type: BLOOD SPECIMEN Ordering Facility: External Submitter Address: , , Performed By: #### 5 7021-8 #### [facility] CLIA [id number] [address] [place] [address] [place] Nucleated RBC/100 WBC (Bld) [Ratio] 0.0 /100 WBC Normal [facility] Comment on above: Order Comment: Speci men Type: BLOOD SPECIMEN Ordering Facility: External Submitter Address: , , Performed By: #### 5 7021-8 #### [facility] CLIA [id number] [address] [place] [address] [place] Platelet mean volume (Bld) [Entitic vol] 9.1 fL Normal 9.0-12.7 [facility] Comment on above: Order Comment: Speci men Type: BLOOD SPECIMEN Ordering Facility: External Submitter Address: , , Performed By: #### 5 7021-8 #### [facility] CLIA [id number] [address] [place] [address] [place] Platelets (Bld) [#/Vol] 166 10*3/uL Normal 150-400 [facility] Comment on above: Order Comment: Speci men Type: BLOOD SPECIMEN Ordering Facility: External Submitter Address: , , Performed By: #### 5 7021-8 #### [facility] CLIA [id number] [address] [place] [id number] [place] Platelets Estimate (Bld) [#/Vol] Adequate Normal [facility] Comment on above: Order Comment: Speci men Type: BLOOD SPECIMEN Ordering Facility: External Submitter Address: , , Performed By: #### 5 7021-8 #### [facility] CLIA [id number] [address] [place] [address] [place] RBC (Bld) [#/Vol] 2.79 10*6/uL Low 4.20-6.00 [facility] Comment on above: Order Comment: Speci men Type: BLOOD SPECIMEN Ordering Facility: External Submitter Address: , , Performed By: #### 5 7021-8 #### [facility] CLIA [id number] [address] [place] [address] [place] RED CELL MORPH Reviewed: unremarkable Normal [facility] Comment on above: Order Comment: Speci men Type: BLOOD SPECIMEN Ordering Facility: External Submitter Address: , , Performed By: #### 5 7021-8 #### [facility] CLIA [id number] [address] [place] [address] [place] WBC (Bld) [#/Vol] 3.40 10*3/uL Low 3.70-11.00 [facility] Comment on above: Order Comment: Speci men Type: BLOOD SPECIMEN Ordering Facility: External Submitter Address: , , Performed By: #### 5 7021-8 #### [facility] CLIA [id number] [address] [place] [address] [place] Comprehensive metabolic 2000 panelon 07-31-2023 Albumin [Mass/Vol] 3.8 g/dL Low 3.9-4.9 [facility] Comment on above: Order Comment: Speci men Type: BLOOD SPECIMEN Ordering Facility: External Submitter Address: , , Performed By: #### 2 4323-8, 3024-7, 3016-3 #### [facility] CLIA [id number] [address] [place] [address] [place] ALP [Catalytic activity/Vol] 132 U/L High 38-113 [facility] Comment on above: Order Comment: Speci men Type: BLOOD SPECIMEN Ordering Facility: External Submitter Address: , , Performed By: #### 2 4323-8, 3024-7, 3015-3 #### [facility] CLIA [id number] [address] [place] [address] [place] ALT [Catalytic activity/Vol] 9 U/L Low 10-54 [facility] Comment on above: Order Comment: Speci men Type: BLOOD SPECIMEN Ordering Facility: External Submitter Address: , , Performed By: #### 2 4323-8, 3023-7, 3 #### [facility] CLIA [id number] [address] [place] [address] [place] Anion gap [Moles/Vol] 15 mmol/L Normal 9-18 [facility] Comment on above: Order Comment: Speci men Type: BLOOD SPECIMEN Ordering Facility: External Submitter Address: , , Performed By: #### 2 4323-8, 3023-7, 3 #### [facility] CLIA [id number] [address] [place] [address] [place] AST [Catalytic activity/Vol] 16 U/L Normal 14-40 [facility] Comment on above: Order Comment: Speci men Type: BLOOD SPECIMEN Ordering Facility: External Submitter Address: , , Performed By: #### 2 4323-8, 4-7, 3 #### [facility] CLIA [id number] [address] [place] [address] [place] Bilirubin [Mass/Vol] 0.4 mg/dL Normal 0.2-1.3 [facility] Comment on above: Order Comment: Speci men Type: BLOOD SPECIMEN Ordering Facility: External Submitter Address: , , Performed By: #### 2 4323-8, 3023-7, 3015-3 #### [facility] CLIA [id number] [address] [address] [place] Calcium [Mass/Vol] 9.6 mg/dL Normal 8.5-10.2 [facility] Comment on above: Order Comment: Speci men Type: BLOOD SPECIMEN Ordering Facility: External Submitter Address: , , Performed By: #### 2 4323-8, 3023-7, 3 #### [facility] CLIA [id number] [address] [address] [place] Chloride [Moles/Vol] 99 mmol/L Normal 97-105 [facility] Comment on above: Order Comment: Speci men Type: BLOOD SPECIMEN Ordering Facility: External Submitter Address: , , Performed By: #### 2 4323-8, 3024-03, 3015-11 #### [facility] CLIA [id number] [address] [place] [address] [place] CO2 [Moles/Vol] 23 mmol/L Normal 22-30 [facility] Comment on above: Order Comment: Speci men Type: BLOOD SPECIMEN Ordering Facility: External Submitter Address: , , Performed By: #### 2 4323-8, 3024-03, 3 #### [facility] CLIA [id number] [address] [place] [address] [place] Creatinine [Mass/Vol] 1.23 mg/dL High 0.73-1.22 [facility] Comment on above: Order Comment: Speci men Type: BLOOD SPECIMEN Ordering Facility: External Submitter Address: , , Performed By: #### 2 4323-8, 7, 3 #### [facility] CLIA [id number] [address] [place] [address] [place] Creatinine and Glomerular filtration rate.predicted panel (S/P/Bld) 61 mL/min/1.73m??? Normal >=60 [facility] Comment on above: Order Comment: Gee [...] By: #### 2 4323-8, 3024-7, 3016-3 #### [facility] CLIA [id number] [address] [place] [address] [place] Glucose [Mass/Vol] 139 mg/dL High 74-99 [facility] Comment on above: Order Comment: Gee vang Type: BLOOD SPECIMEN Ordering Facility: External Submitter Address: , , Result Comment: The [place] Diabetes Association (ADA) provides guidance for cutoff [...] Standards of Medical Care in Diabetes 2016, [place] [employer]. Diabetes Care. 2016.39(Suppl 1). Performed By: #### 2 4323-8, 3024-7, 3016-3 #### [facility] CLIA [id number] [address] [place] [address] [place] Potassium [Moles/Vol] 4.0 mmol/L Normal 3.7-5.1 [facility] Comment on above: Order Comment: Gee vang Type: BLOOD SPECIMEN Ordering Facility: External Submitter Address: , , Performed By: #### 2 4323-8, 3023-7, 3 #### [facility] CLIA [id number] [address] [place] [address] [place] Protein [Mass/Vol] 7.7 g/dL Normal 6.3-8.0 [facility] Comment on above: Order Comment: Speci men Type: BLOOD SPECIMEN Ordering Facility: External Submitter Address: , , Performed By: #### 2 4323-8, 7, 3015-11 #### [facility] CLIA [id number] [address] [place] [address] [place] Sodium [Moles/Vol] 137 mmol/L Normal 136-144 [facility] Comment on above: Order Comment: Speci men Type: BLOOD SPECIMEN Ordering Facility: External Submitter Address: , , Performed By: #### 2 4323-8, 3024-03, 3015-11 #### [facility] CLIA [id number] [address] [place] [address] [place] Urea nitrogen [Mass/Vol] 19 mg/dL Normal 9-24 [facility] Comment on above: Order Comment: Speci men Type: BLOOD SPECIMEN Ordering Facility: External Submitter Address: , , Performed By: #### 2 4323-8, 3024-03, 3 #### [facility] CLIA [id number] [address] [place] [address] [place] T4 Free SerPl-mCncon 07- 023 Free T4 [Mass/Vol] 1.1 ng/dL Normal 0.9-1.7 [facility] Comment on above: Order Comment: Speci men Type: BLOOD SPECIMEN Ordering Facility: External Submitter Address: , , Performed By: #### 2 4323-8, 7, 3 #### [facility] CLIA [id number] [address] [place] TSH SerPl-aCncon 07-31-2023 TSH Qn 4.190 m[IU]/L Normal 0.270-4.20 0 [facility] Comment on above: Order Comment: Speci men Type: BLOOD SPECIMEN Ordering Facility: External Submitter Address: , , Performed By: #### 2 4323-8, 3024-7, 3016-3 #### [facility] CLIA [id number] [address] [place] [address] Ambulatory Visit Summaryon 1 Ambulatory Visit Summary [...] spironolactone (spironolactone 25 mg Tab) thyroid desiccated ([facility]) Procedures Performed Urethral dilatation (11/03/2022), TURP [...] months Where: [facility] [address], [place] [address]- Medications What How Much When Instructions Changed tolterodine (tolterodine 2 mg Cap-ER) 1 Capsules By Mouth Every day Pickup at [facility]/pharmacy #[id number] Unchanged APAP/ butalbital/ caffeine (APAP/ [...] if questions or concerns Unchanged thyroid desiccated ([facility]) By Mouth Every day Contact prescribing physician if questions or concerns Pharmacy Information [facility]/pharmacy #[id number]: [address], [place] [id number] [phone] Allergies No Known Allergies Problems Ongoing - Any problem that you are currently receiving treatment for. BPH without urinary obstruction Hesitancy Hypertension Incomplete bladder emptying Intertrigo mild MS (myocardial infarction) Nocturia Protein in urine Proteinuria [...] This condi (more content not included)... Normal [facility] Patient Educationon 07-09-20 Patient Education Urology [...] Follow these instructions at home: ? Take gjtb-boi-imrppgs and prescription medicines only as told by [...] the medicine (more content not included)... Normal [facility] Urology Office/Clinic Noteon 07-09-2023 Urology Office/Clinic [...] With When Contact Information Trung FERGUSON MD, URSeema In 4 months [facility] [address], [place] [address]- Additional Instructions: Patient Education Benign Prostatic Hyperplasia I, Valentine Fuetnes , personally scribed for Dr. Ferguson on 07/09/2023 11:38:56. . Documentation recorded by the scribe, Valentine Fuentes, accurately reflects the services(s) I performed and decisions made by me. Problem List/Past Medical History Ongoing BPH without urinary obstruction Hesitancy Hypertension Incomplete bladder emptying Intertrigo mild MS (myocardial infarction) Nocturia Protein in urine Proteinuria Smoker Urethral meatal stenosis Urge incontinence Urinary incontinence without sensory awareness Urinary retention Historical No qualifying data Procedure/Surgical History Urethral dilatation (11/03/2022), TURP - Transurethral resection of prostate (08/31/2022), Cystoscopy (01/24/2022), Colonoscopy, Shoulder replacement. Medications APAP/butalbital/caffeine 325 mg-50 mg-40 mg Tab [facility], Oral, Daily atorvastatin, Oral, Daily Butapap cat 40mg PRN CVS B-12 1,000 MCG TABLET, 0 doxazosin 4 mg Tab Eliquis 5 mg oral tablet FLUoxet (more content not included)... Normal [facility] Comment on above: Result Comment: Elec [...] Orders Anemia Complete Blood Count; Status:Active; Requested for:[id number]; Atrial fibrillation, currently in sinus rhythm, Frequent falls Cardiology - Valve and Structural Heart Program Referral Evaluation and Treatment Evaluate AND Treat Status: Hold For - Scheduling Requested for: [id number] SocHx: Former smoker Tobacco Use Screening; Status:Complete; Done: [id number] Patient Instructions Please bring all medicines, vitamins, [...] fibrillation, hypercoagulability related to atrial fibrillation, high [id number] score, most recently seen February 2023 and [...] due to atrial fibrillation, on anticoagulation. 10. [id number] at least 5. Has bled score 2 [...] cuff rep (more content not included)... Normal [facility] Tobacco Screening.on 023 Fall risk assessment b) One or more fall s in the last year -[facility] Intacctu jaun 250 DO Work Phone: Tobacco use status CP b) No [facility] [employer]-Coworksy 250 DO Work Phone: Tobacco Screening. Yes [facility] [employer] Lunches-Sandu jaun 250 DO Work Phone: Patient Educationon [...] provider. Document Revised: 01/19/2022 Document Reviewed: 01/19/2022 [employer] Patient Education ? 2022 [employer]. [facility] Urology Office/Clinic Noteon 04-03-2023 Urology [...] When Contact Information CHARLOTTE BAKER PA-C, URL [address] [place] [address] Additional Instructions: keep appt w/ Patient Education [...] Hesitancy Hypertension Incomplete bladder emptying Intertrigo mild MS (myocardial infarction) Nocturia Protein in urine Proteinuria Smoker Urethral meatal stenosis Urge incontinence Urinary incontinence without sensory awareness Urinary retention Historical No qualifying data Procedure/Surgical History Urethral dilatation (11/03/2022), TURP - Transurethral resection of prostate (08/31/2022), Cystoscopy (01/24/2022), Colonoscopy, Shoulder replacement. Medications amLODIPine 5 mg Tab [place] Thyroid, Oral, Daily aspirin 81 mg oral [...] vaccine 07/12/ (more content not included)... Normal [facility] Comment on above: Result Comment: Elec tronically Signed By: RITESH ALTAMIRANO, CHARLOTTE Barry\Date and Time Signed: 04/03/23 09:51 EDT\.br\Electronically Co-Signed By: Valentine Fuentes\.gabino\Date and Time Co-Signed: 04/03/23 09:31 EDT Office [...] ischemic attack) Complete Blood Count; Status:Active; Requested for:[id number]; Comprehensive Metabolic Panel; Status:Active; Requested for:31Tng1749; Lipid Panel; Status:Active; Requested for:26Feb2023; T4 - Free Thyroxine, Serum; Status:Active; Requested for:[id number]; TSH - Thyroid Stimulating Hormone, Serum; Status:Active; [...] daily Device check as directed per [facility] protocol Chief Complaint NEIL [...] due to atrial fibrillation, on anticoagulation. 10. [id number] at least 5. Has bled score 2 insurance changed, now able to afford [employer]. 1 Recommendations: 1. Decrease metoprolol succinate to [...] losartan in (more content not included)... Normal [facility] Tobacco Screening.on 023 Fall risk assessment b) One or more fall s in the last year [facility] Work Phone: Tobacco use status [facility] b) No [facility] Work Phone: Patient Educationon 01-24-20 [...] conditioner or fan, if available. ? Apply szpo-xmy-zcttjuy and prescription medicines only as told by [...] your skin and with medicines. ? Apply rclp-mxg-fuwkvkk and prescription medicines only as told by your health care provider. ? Keep all follow-up visits as told by your health care provider. This is important. This information is not intended to replace advice given to you by your health care provider. Make sure you discuss any questions you have with your health care provider. Document Revised: 06/26/2022 Document Reviewed: 06/26/2022 [employer] Patient Education ? 2022 [employer]. [facility] Urology Office/Clinic Noteon 01-23-2023 Urology [...] E&M of Est. Patient Low 20-29 Min [id number] Orders: Urnls Dip Stick Auto w/o Microscopy POC [id number] Follow-up No qualifying data available f/u LUI 8 wks. keep previously scheduled f/u w PRW this fall. Patient Education Intertrigo Problem List/Past Medical History Ongoing BPH without urinary obstruction Hesitancy Hypertension Incomplete bladder emptying mild MS (myocardial infarction) Nocturia Protein in urine Proteinuria Smoker Urethral meatal stenosis Urge incontinence Urinary incontinence without sensory awareness Urinary retention Historical No qualifying data Procedure/Surgical History Urethral dilatation (11/03/2022), TURP - Transurethral resection of prostate (08/31/2022), Cystoscopy (01/24/2022), Colonoscopy, Shoulder replacement. Medications amLODIPine 5 mg Tab [place] Thyroid, Oral, Daily aspirin 81 mg oral [...] Dipstick: 1+ (30 mg/dl) (01/23/23 14:11:00) Specific [place] Urine Dipstick: >=1.030 (01/23/23 14:11:00) Urine Appearance Urine Dipstick: Clear (01/23/23 14:11:00) Urine Color Urine Dipstick: Yellow (01/23/23 14:11:00) Urobilinogen Urine Dipstick: Normal 0.2-1 EU/dl (01/23/23 14:11:00) pH Urine Dipstick: 5.5 (01/23/23 14:11:00) Normal [facility] Comment on above: Result Comment: Elec [...] Follow these instructions at home: ? Take ewki-kvk-bkupzes and prescription medicines only as told by [...] 10/06/2016 Document Revised: 04/23/2019 Document Reviewed: 04/23/2019 [employer] Patient Education ? 2019 [employer] [facility]ll[facility] Urology Office/Clinic Noteon 01-01-2023 Urology [...] [facility] [address], [place] [address]- Additional Instructions: 6 mos with UA Patient Education Urethral Stricture I, Jessica Landrum, personally scribed for Dr. Ferguson on 01/01/2023 13:19:03. . Documentation recorded by the scribe, Jessica Landrum, accurately reflects the services(s) I performed and decisions made by me. Authenticated by Dr. Ferguson on 01/01/2023 13:24:19. Problem List/Past Medical History Ongoing BPH without urinary obstruction Hesitancy Hypertension Incomplete bladder emptying mild MS (myocardial infarction) Nocturia Protein in urine Proteinuria Smoker Urethral meatal stenosis Urge incontinence Urinary incontinence without sensory awareness Urinary retention Historical No qualifying data Procedure/Surgical History TURP - Transurethral resection of prostate (08/31/2022), Cystoscopy (01/24/2022), Colonoscopy, Shoulder replacement. Medications amLODIPine 5 mg Tab [place] Thyroid, Oral, Daily aspirin 81 mg oral [...] inactivated 10/09/2021 Recorded SARS-CoV-2 (COVID-19) Ad26 vaccine / (more content not included)... Normal [facility] Comment on above: Result Comment: Elec [...] MG Oral TabletTAKE 1 TABLET AT BEDTIME. Sgerxtjjtk-DPMD-Uzalcwck 50-325-40 MG Oral TabletTAKE 1 TABLET 3 [...] PM Social (more content not included)... Normal [facility] Tobacco Screening.on 023 Fall risk assessment a) No falls within the last year [facility] [employer] jaun 250 DO Work Phone: Tobacco use status [facility] b) No -[facility] [employer]ches-[employer] 250 DO Work Phone: Office Visit (Cardiology)on [...] the time of your visit. Loulou Arreguin PINION SORTER in 1 weeks Follow up in 6 [...] MG Oral TabletTAKE 1 TABLET AT BEDTIME. Mvciyhmfnq-SPWN-Mryovkuh 50-325-40 MG Oral TabletTAKE 1 TABLET 3 [...] Caffeine us (more content not included)... Normal [facility] Tobacco Screening.on 023 Adult depression screening assessment No [facility] Zeo 250 DO Work Phone: Fall risk assessment a) No falls within the last year [facility] Zeo 250 DO Work Phone: Tobacco use status [facility] b) No [facility] Ze[employer] 250 DO Work Phone: Office Visit (Cardiology)on [...] in adult Healthy Weight Tips; Status:Complete; Done: [id number] Some eating tips that can help you lose weight.; Status:Complete; Done: 80Vmm5507 SocHx: Former smoker Tobacco Use Screening; Status:Complete; Done: 16Smf6813 Chief Complaint NEIL WILCOX is being seen for hypertension. Current Meds Medication NameInstruction amLODIPine Besylate 10 MG Oral TabletTAKE 1 TABLET DAILY. Atorvastatin Calcium 40 MG Oral TabletTAKE 1 TABLET AT BEDTIME. Mfnlowuswm-SPTP-Tijkdmuz 50-325-40 MG Oral TabletTAKE 1 TABLET 3 [...] as previously mentioned Vitals Vital Signs Recorded: 48Ilm5918 01:07PMRecorded: 55Ygc8335 01:00PM Systolic Qqkma213, LUE Diastolic Lying84, LUE Systolic Kuaxiit901, LUE Diastolic Uocahzm62, LUE Systolic Enxrgewz955, LUE Diastolic Ldutpeto47, LUE Heart Rate62, L Radial Height5 ft 9 in Ooyvez953 lb BMI Ujkedfedco24.99 kg/m2 BSA Calculated1.96 Physical Exam GENERAL: Well [...] spec) Not detected Normal NOT DETECTED [facility] Comment on above: Result Comment: This test is not yet approved or cleared by the [place] FDA. When there are no FDA-approved or cleared tests available, and other criteria are met, FDA can make tests available under an emergency access mechanism called an Emergency Use Authorization (EUA). The EUA for this test is supported by the [place] of Health and Human Service's (HHS's) declaration [...] By: #### T SH, LIPID, CMP #### [facility] [address] [address] [address] Oscar Paulino Office Visit (Cardiology)on 08-28-2022 [...] TABLET DAILY Basic Metabolic Panel; Status:Active; Requested for:13Swp1013; Overweight with body mass index (BMI) of 25 to 25.9 in adult Start: Spironolactone 25 MG Oral Tablet; TAKE 1 TABLET DAILY Healthy Weight Tips; Status:Complete; Done: 40Awe4607 Some eating tips that can help you lose weight.; Status:Complete; Done: 19Jxs6605 Paroxysmal atrial fibrillation with RVR Start: Eliquis [...] these medications, (more content not included)... Normal [facility] Tobacco Screening.on Fall risk assessment b) One or more fall s in the last year [facility] 250 DO Work Phone: Tobacco use status [facility] b) No [facility] jaun 250 DO Work Phone: LIPID PROFILEon 08-25-2022 CHOL-HDL RATIO NORM SEE BELOW Normal [facility] Comment on above: Result Comment: 3.3 - 4.4 LOW RISK 4.4 - 7.1 AVERAGE RISK 7.1 - 11.0 MODERATE RISK >11.0 HIGH RISK Performed By: #### T SH, LIPID, CMP #### [facility] [address] [address] [address] Oscar Paulino Cholesterol [Mass/Vol] 121 mg/dL Normal <=200 [facility] Comment on above: Performed By: #### T SH, LIPID, CMP #### [facility] [address] [address] [address] Oscar Paulino Cholesterol in HDL [Mass/Vol] 42 mg/dL Normal 40-60 [facility] Comment on above: Performed By: #### T SH, LIPID, CMP #### [facility] [address] [address] [address] Oscar Paulino Cholesterol in LDL [Mass/Vol] 66.2 mg/dL Normal [facility] Comment on above: Performed By: #### T SH, LIPID, CMP #### [facility] [address] [address] [address] Oscar Paulino Cholesterol.total/Chol esterol in HDL [Mass ratio] 2.9 {ratio} Normal [facility] Comment on above: Performed By: #### T SH, LIPID, CMP #### [facility] [address] [address] [address] Oscar Paulino HDL NORMAL > or = 60 mg/dl - LO W CARDIOVASCULAR RISK <40 mg/dl - HIGH CARDIOVASCULAR RISK Normal [facility] Comment on above: Performed By: #### T SH, LIPID, CMP #### [facility] [address] [address] [address] Oscar Paulino LDL CALC NORMAL SEE BELOW Normal [facility] Comment on above: Result Comment: <100 mg/dl OPTIMAL 100 - 129 mg/dl NEAR OR ABOVE OPTIMAL 130 - 159 mg/dl BORDERLINE HIGH 160 - 189 mg/dl HIGH >190 mg/dl VERY HIGH Performed By: #### T MANJIT LIPID, CMP #### [facility] [address] [place] [address] Dr. Oscar Paulino Triglyceride [Mass/Vol] 64 mg/dL Normal <=150 [facility] Comment on above: Performed By: #### T MANJIT, LIPID, CMP #### [facility] [address] [place] [address] Dr. Oscar Paulino VLDL CALC 12.8 mg/dL Normal [facility] Comment on above: Performed By: #### T MANJIT LIPID, CMP #### [facility] [address] [place] [address] Dr. Oscar Paulino PROF 14(COMP METB)on 022 Albumin [Mass/Vol] 3.6 g/dL Normal 3.4-5.0 [facility] Comment on above: Performed By: #### T MANJIT LIPID, CMP #### [facility] [address] [place] [address] Dr. Oscar Paulino Albumin/Globulin [Mass ratio] 0.8 {ratio} Normal [facility] Comment on above: Performed By: #### T MANJIT LIPID, CMP #### [facility] [address] [place] [address] Dr. Oscar Paulino ALP [Catalytic activity/Vol] 92 U/L Normal 46-116 [facility] Comment on above: Performed By: #### T MANJIT, LIPID, CMP #### [facility] [address] [place] [address] Dr. Oscar Paulino ALT [Catalytic activity/Vol] 17 U/L Normal 16-63 [facility] Comment on above: Performed By: #### T MANJIT LIPID, CMP #### [facility] [address] [place] [address] Dr. Oscar Paulino Anion gap [Moles/Vol] 9.7 mmol/L Normal [facility] Comment on above: Performed By: #### T MANJIT, LIPID, CMP #### [facility] [address] [address] [address] Oscar Paulion AST [Catalytic activity/Vol] 10 U/L Critically low 15-37 [facility] Comment on above: Performed By: #### T SH, LIPID, CMP #### [facility] [address] [address] [address] Oscar Paulino Bilirubin [Mass/Vol] 0.3 mg/dL Normal 0.2-1.0 [facility] Comment on above: Performed By: #### T SH, LIPID, CMP #### [facility] [address] [address] [address] Oscar Paulino Calcium [Mass/Vol] 9.4 mg/dL Normal 8.5-10.1 [facility] Comment on above: Performed By: #### T SH, LIPID, CMP #### [facility] [address] [place] [address] Dr. Oscar Pauilno Chloride [Moles/Vol] 102 mmol/L Normal 98-107 [facility] Comment on above: Performed By: #### T SH, LIPID, CMP #### [facility] [address] [place] [address] Dr. Oscar Paulino CO2 [Moles/Vol] 29.1 mmol/L Normal 21.0-32.0 [facility] Comment on above: Performed By: #### T SH, LIPID, CMP #### [facility] [address] [place] [address] Dr. Oscar Paulino Creatinine [Mass/Vol] 1.08 mg/dL Normal 0.70-1.30 [facility] Comment on above: Performed By: #### T SH, LIPID, CMP #### [facility] [address] [place] [address] Dr. Oscar Paulino EGFR-AF PAKISTANI >60 Normal >=60 [facility] Comment on above: Performed By: #### T SH, LIPID, CMP #### [facility] [address] [place] [address] Dr. Oscar Paulino EGFR-NON AF PAKISTANI >60 Normal >=60 [facility] Comment on above: Performed By: #### T SH, LIPID, CMP #### [facility] [address] [address] [address] Oscar Paulino Globulin (S) [Mass/Vol] 4.3 g/dL Normal [facility] Comment on above: Performed By: #### T SH, LIPID, CMP #### [facility] [address] [place] [address] Dr. Oscar Paulino Glucose [Mass/Vol] 104 mg/dL Normal 74-106 [facility] Comment on above: Performed By: #### T SH, LIPID, CMP #### [facility] [address] [place] [address] Dr. Oscar Paulino Potassium [Moles/Vol] 3.8 mmol/L Normal 3.5-5.1 [facility] Comment on above: Performed By: #### T SH, LIPID, CMP #### [facility] [address] [place] [address] Dr. Oscar Paulino Protein [Mass/Vol] 7.9 g/dL Normal 6.4-8.2 [facility] Comment on above: Performed By: #### T SH, LIPID, CMP #### [facility] [address] [place] [address] Dr. Oscar Paulino Sodium [Moles/Vol] 137 mmol/L Normal 136-145 [facility] Comment on above: Performed By: #### T SH, LIPID, CMP #### [facility] [address] [place] [address] Dr. Oscar Paulino Urea nitrogen [Mass/Vol] 18.0 mg/dL Normal 7.0-18.0 [facility] Comment on above: Performed By: #### T SH, LIPID, CMP #### [facility] [address] [place] [address] Dr. Oscar Paulino Urea nitrogen/Creatinine [Mass ratio] 16.7 mg/mg Normal [facility] Comment on above: Performed By: #### T SH, LIPID, CMP #### [facility] [address] [place] [address] Dr. Oscar Paulino TSHon 08-25-2022 TSH 2.967 uIU/mL Normal 0.358-3.74 0 [facility] Comment on above: Performed By: #### T SH, LIPID, CMP #### [facility] [address] [place] [address] Dr. Oscar Paulino CBC AUTO DIFFon 08-22-2022 BASO # 0.0 103/ul Normal 0.0-0.1 [facility] Comment on above: Performed By: #### T SH, LIPID, CMP #### [facility] [address] [place] [address] Dr. Oscar Paulino Basophils/100 WBC (Bld) 0.3 % Normal 0.2-2.0 [facility] Comment on above: Performed By: #### T SH, LIPID, CMP #### [facility] [address] [place] [address] Dr. Oscar Paulino EO # 0.3 103/ul Normal 0.0-0.7 [facility] Comment on above: Performed By: #### T SH, LIPID, CMP #### [facility] [address] [place] [address] Dr. Oscar Paulino Eosinophils/100 WBC (Bld) 7.3 % Critically high 0.9-7.0 [facility] Comment on above: Performed By: #### T SH, LIPID, CMP #### [facility] [address] [place] [address] Dr. Oscar Paulino Erythrocyte distribution width (RBC) [Ratio] 11.9 % Normal 11.0-15.0 [facility] Comment on above: Performed By: #### T SH, LIPID, CMP #### [facility] [address] [place] [address] Dr. Oscar Paulino Hematocrit (Bld) [Volume fraction] 33.8 % Critically low 42.0-54.0 [facility] Comment on above: Performed By: #### T SH, LIPID, CMP #### [facility] [address] [place] [address] Dr. Oscar Paulino Hemoglobin (Bld) [Mass/Vol] 12.0 g/dL Critically low 14.0-18.0 [facility] Comment on above: Performed By: #### T SH, LIPID, CMP #### [facility] [address] [address] [address] Oscar Paulino IG # 0.01 10e3/ul Normal 0.00-0.03 [facility] Comment on above: Performed By: #### T SH, LIPID, CMP #### [facility] [address] [address] [address] Oscar Paulino IG % 0.3 % Normal 0.0-0.5 [facility] Comment on above: Performed By: #### T SH, LIPID, CMP #### [facility] [address] [address] [address] Oscar Paulino LYMPH # 1.4 103/ul Normal 1.2-3.8 [facility] Comment on above: Performed By: #### T SH, LIPID, CMP #### [facility] [address] [place] [address] Dr. Oscar Paulino Lymphocytes/100 WBC (Bld) 39.2 % Normal 20.5-60.0 [facility] Comment on above: Performed By: #### T SH, LIPID, CMP #### [facility] [address] [address] [address] Oscar Paulino MANUAL DIFF REQ NO Normal [facility] Comment on above: Performed By: #### T SH, LIPID, CMP #### [facility] [address] [place] [address] Dr. Oscar Paulino MCH (RBC) [Entitic mass] 36.4 pg Critically high 25.9-34.0 [facility] Comment on above: Performed By: #### T SH, LIPID, CMP #### [facility] [address] [place] [address] Dr. Oscar Paulino MCHC (RBC) [Mass/Vol] 35.5 g/dL Critically high 29.9-35.2 [facility] Comment on above: Performed By: #### T SH, LIPID, CMP #### [facility] [address] [place] [address] Dr. Oscar Paulino MCV (RBC) [Entitic vol] 102.4 fL Critically high 80.0-94.0 [facility] Comment on above: Performed By: #### T SH, LIPID, CMP #### [facility] [address] [place] [address] Dr. Oscar Paulino MONO # 0.2 103/ul Critically low 0.3-0.8 [facility] Comment on above: Performed By: #### T SH, LIPID, CMP #### [facility] [address] [place] [address] Dr. Oscar Paulino Monocytes/100 WBC (Bld) 6.8 % Normal 1.7-12.0 [facility] Comment on above: Performed By: #### T SH, LIPID, CMP #### [facility] [address] [place] [address] Dr. Oscar Paulino NEUT # 1.6 103/ul Normal 1.4-6.5 [facility] Comment on above: Performed By: #### T SH, LIPID, CMP #### [facility] [address] [place] [address] Dr. Oscar Paulino Neutrophils/100 WBC (Bld) 46.1 % Normal 43.0-75.0 [facility] Comment on above: Performed By: #### T SH, LIPID, CMP #### [facility] [address] [place] [address] Dr. Oscar Paulino Platelet mean volume (Bld) [Entitic vol] 8.5 fL Critically low 9.5-13.5 [facility] Comment on above: Performed By: #### T SH, LIPID, CMP #### [facility] [address] [place] [address] Dr. Oscar Paulino PLT 191 103/ul Normal 150-450 [facility] Comment on above: Performed By: #### T SH, LIPID, CMP #### [facility] [address] [place] [address] Dr. Oscar Paulino RBC 3.30 106/ul Critically low 4.70-6.10 [facility] Comment on above: Performed By: #### T SH, LIPID, CMP #### [facility] [address] [place] [address] Dr. Oscar Paulino WBC 3.6 103/ul Critically low 4.0-11.0 [facility] Comment on above: Performed By: #### T SH, LIPID, CMP #### [facility] [address] [place] [address] Dr. Oscar Paulino PROF CHEM 8 (BAS METB)on Anion gap [Moles/Vol] 11.0 mmol/L Normal [facility] Comment on above: Performed By: #### B MP #### [facility] [address] [place] [address] Dr. Oscar Paulino Calcium [Mass/Vol] 9.4 mg/dL Normal 8.5-10.1 [facility] Comment on above: Performed By: #### B MP #### [facility] [address] [place] [address] Dr. Oscar Paulino Chloride [Moles/Vol] 103 mmol/L Normal 98-107 [facility] Comment on above: Performed By: #### B MP #### [facility] [address] [place] [address] Dr. Oscar Paulino CO2 [Moles/Vol] 27.7 mmol/L Normal 21.0-32.0 [facility] Comment on above: Performed By: #### B MP #### [facility] [address] [place] [address] Dr. Oscar Paulino Creatinine [Mass/Vol] 1.07 mg/dL Normal 0.70-1.30 [facility] Comment on above: Performed By: #### B MP #### [facility] [address] [place] [address] Dr. Oscar Paulino EGFR-AF PAKISTANI >60 Normal >=60 [facility] Comment on above: Performed By: #### B MP #### [facility] [address] [place] [address] Dr. Oscar Paulino EGFR-NON AF PAKISTANI >60 Normal >=60 [facility] Comment on above: Performed By: #### B MP #### [facility] [address] [place] [address] Dr. Oscar Paulino Glucose [Mass/Vol] 99 mg/dL Normal 74-106 [facility] Comment on above: Performed By: #### B MP #### [facility] [address] [place] [address] Dr. Oscar Paulino Potassium [Moles/Vol] 3.7 mmol/L Normal 3.5-5.1 [facility] Comment on above: Performed By: #### B MP #### [facility] [address] [place] [address] Dr. Oscar Paulino Sodium [Moles/Vol] 138 mmol/L Normal 136-145 [facility] Comment on above: Performed By: #### B MP #### [facility] [address] [place] [address] Dr. Oscar Paulino Urea nitrogen [Mass/Vol] 20.0 mg/dL Critically high 7.0-18.0 [facility] Comment on above: Performed By: #### B MP #### [facility] [address] [place] [address] Dr. Oscar Paulino Urea nitrogen/Creatinine [Mass ratio] 18.7 mg/mg Normal [facility] Comment on above: Performed By: #### B MP #### [facility] Laboratory [address] [place] [address] Dr. Oscar Paulino PROTIMEon 08-22-2022 INR Coag (PPP) [Relative time] 1.06 {INR} Normal [facility] Comment on above: Performed By: #### P T, PTT #### [facility] [address] [place] [address] Dr. Oscar Paulino INR GUIDELINES SEE BELOW Normal [facility] Comment on above: Result Comment: ELYSIA RED INR: 2.0 - 3.0 CONDITIONS NOT LISTED BELOW 2.5 - 3.5 FOR PROSTHETIC HEART VALVE REPLACEMENT 2.5 - 3.5 RECURRENT THROMBOSIS Performed By: #### P T, PTT #### [facility] [address] [place] [address] Dr. Oscar Paulino PT Coag (PPP) [Time] 11.4 s Normal 9.0-11.6 [facility] Comment on above: Performed By: #### P T, PTT #### [facility] [address], [place] [address] Dr. Oscar Paulino PTTon 08-22-2022 aPTT Coag (Bld) [Time] 26.6 s Normal 22.3-36.2 Th e [facility] Comment on above: Performed By: #### P T, PTT #### [facility] [address], [place] [address] Dr. Oscar Paulino Covid-19 PCR (CVDTBH)on 06-25 SARS-CoV-2 (COVID-19) RNA KEIKO+probe Ql (Unsp spec) Not detected Normal NOT DETECTED [facility] Comment on above: Result Comment: This test is not yet approved or cleared by the [place] FDA. When there are no FDA-approved or cleared tests available, and other criteria are met, FDA can make tests available under an emergency access mechanism called an Emergency Use Authorization (EUA). The EUA for this test is supported by the [place] of Health and Human Service's (HHS's) declaration [...] SARS-CoV-2. Performed By: #### C VDTBH #### [facility] [address], [place] [address] Dr. Oscar Paulino Covid-19 PCR (CVDTBH)on SARS-CoV-2 (COVID-19) RNA KEIKO+probe Ql (Unsp spec) Not detected Normal NOT DETECTED [facility] Comment on above: Result Comment: This test is not yet approved or cleared by the [place] FDA. When there are no FDA-approved or cleared tests available, and other criteria are met, FDA can make tests available under an emergency access mechanism called an Emergency Use Authorization (EUA). The EUA for this test is supported by the [place] of Health and Human Service's (HHS's) declaration [...] SARS-CoV-2. Performed By: #### C VDTB #### [facility] [address] [place] [address] Dr. Oscar Paulino CBC AUTO DIFFon 06-28-2022 BASO # 0.0 103/ul Normal 0.0-0.1 [facility] Comment on above: Performed By: #### T SH, LIPID, CMP #### [facility] [address] [place] [address] Dr. Oscar Paulino Basophils/100 WBC (Bld) 0.4 % Normal 0.2-2.0 [facility] Comment on above: Performed By: #### T SH, LIPID, CMP #### [facility] [address] [place] [address] Dr. Oscar Paulino EO # 0.2 103/ul Normal 0.0-0.7 [facility] Comment on above: Performed By: #### T SH, LIPID, CMP #### [facility] [address] [place] [address] Dr. Oscar Paulino Eosinophils/100 WBC (Bld) 7.5 % Critically high 0.9-7.0 [facility] Comment on above: Performed By: #### T SH, LIPID, CMP #### [facility] [address] [place] [address] Dr. Oscar Paulino Erythrocyte distribution width (RBC) [Ratio] 12.3 % Normal 11.0-15.0 [facility] Comment on above: Performed By: #### T SH, LIPID, CMP #### [facility] [address] [place] [address] Dr. Oscar Paulino Hematocrit (Bld) [Volume fraction] 34.0 % Critically low 42.0-54.0 [facility] Comment on above: Performed By: #### T SH, LIPID, CMP #### [facility] [address] [place] [address] Dr. Oscar Paulino Hemoglobin (Bld) [Mass/Vol] 11.6 g/dL Critically low 14.0-18.0 [facility] Comment on above: Performed By: #### T SH, LIPID, CMP #### [facility] [address] [place] [address] Dr. Oscar Paulino IG # 0.00 10e3/ul Normal 0.00-0.03 [facility] Comment on above: Performed By: #### T SH, LIPID, CMP #### [facility] [address] [place] [address] Dr. Oscar Paulino IG % 0.0 % Normal 0.0-0.5 [facility] Comment on above: Performed By: #### T SH, LIPID, CMP #### [facility] [address] [place] [address] Dr. Oscar Paulino LYMPH # 1.0 103/ul Critically low 1.2-3.8 [facility] Comment on above: Performed By: #### T SH, LIPID, CMP #### [facility] [address] [place] [address] Dr. Oscar Paulino Lymphocytes/100 WBC (Bld) 40.1 % Normal 20.5-60.0 [facility] Comment on above: Performed By: #### T SH, LIPID, CMP #### [facility] [address] [place] [address] Dr. Oscar Paulino MANUAL DIFF REQ NO Normal [facility] Comment on above: Performed By: #### T SH, LIPID, CMP #### [facility] [address] [place] [address] Dr. Oscar Paulino MCH (RBC) [Entitic mass] 35.7 pg Critically high 25.9-34.0 [facility] Comment on above: Performed By: #### T SH, LIPID, CMP #### [facility] [address] [place] [address] Dr. Oscar Paulino MCHC (RBC) [Mass/Vol] 34.1 g/dL Normal 29.9-35.2 [facility] Comment on above: Performed By: #### T SH, LIPID, CMP #### [facility] [address] [place] [address] Dr. Oscar Paulino MCV (RBC) [Entitic vol] 104.6 fL Critically high 80.0-94.0 [facility] Comment on above: Performed By: #### T SH, LIPID, CMP #### [facility] [address] [place] [address] Dr. Oscar Paulino MONO # 0.2 103/ul Critically low 0.3-0.8 [facility] Comment on above: Performed By: #### T SH, LIPID, CMP #### [facility] [address] [place] [address] Dr. Oscar Paulino Monocytes/100 WBC (Bld) 6.7 % Normal 1.7-12.0 [facility] Comment on above: Performed By: #### T SH, LIPID, CMP #### [facility] [address] [place] [address] Dr. Oscar Paulino NEUT # 1.1 103/ul Critically low 1.4-6.5 [facility] Comment on above: Performed By: #### T SH, LIPID, CMP #### [facility] [address] [place] [address] Dr. Oscar Paulino Neutrophils/100 WBC (Bld) 45.3 % Normal 43.0-75.0 [facility] Comment on above: Performed By: #### T SH, LIPID, CMP #### [facility] [address] [place] [address] Dr. Oscar Paulino Platelet mean volume (Bld) [Entitic vol] 8.4 fL Critically low 9.5-13.5 [facility] Comment on above: Performed By: #### T SH, LIPID, CMP #### [facility] [address] [address] [address] Oscar Paulino PLT 164 103/ul Normal 150-450 [facility] Comment on above: Performed By: #### T MANJIT, LIPID, CMP #### [facility] [address] [place] [address] Dr. Oscar Paulino RBC 3.25 106/ul Critically low 4.70-6.10 [facility] Comment on above: Performed By: #### T MANJIT, LIPID, CMP #### [facility] [address] [place] [address] Dr. Oscar Paulino WBC 2.5 103/ul Critically low 4.0-11.0 [facility] Comment on above: Performed By: #### T MANJIT, LIPID, CMP #### [facility] [address] [place] [address] Dr. Oscar Paulino PROF CHEM 8 (BAS METB)on Anion gap [Moles/Vol] 9.9 mmol/L Normal [facility] Comment on above: Performed By: #### B MP #### [facility] [address] [place] [address] Dr. Oscar Paulino Calcium [Mass/Vol] 9.4 mg/dL Normal 8.5-10.1 [facility] Comment on above: Performed By: #### B MP #### [facility] [address] [place] [address] Dr. Oscar Paulino Chloride [Moles/Vol] 105 mmol/L Normal 98-107 [facility] Comment on above: Performed By: #### B MP #### [facility] [address] [place] [address] Dr. Oscar Paulino CO2 [Moles/Vol] 27.3 mmol/L Normal 21.0-32.0 [facility] Comment on above: Performed By: #### B MP #### [facility] [address] [place] [address] Dr. Oscar Paulino Creatinine [Mass/Vol] 1.05 mg/dL Normal 0.70-1.30 [facility] Comment on above: Performed By: #### B MP #### [facility] [address] [place] [address] [address] Oscar Paulino EGFR-AF PAKISTANI >60 Normal >=60 [facility] Comment on above: Performed By: #### B MP #### [facility] [address] [place] [address] Dr. Oscar Paulino EGFR-NON AF PAKISTANI >60 Normal >=60 [facility] Comment on above: Performed By: #### B MP #### [facility] [address] [place] [address] [address] Oscar Paulino Glucose [Mass/Vol] 105 mg/dL Normal 74-106 [facility] Comment on above: Performed By: #### B MP #### [facility] [address] [place] [address] Dr. Oscar Paulino Potassium [Moles/Vol] 4.2 mmol/L Normal 3.5-5.1 [facility] Comment on above: Performed By: #### B MP #### [facility] [address] [place] [address] Dr. Oscar Paulino Sodium [Moles/Vol] 138 mmol/L Normal 136-145 [facility] Comment on above: Performed By: #### B MP #### [facility] [address] [place] [address] Dr. Oscar Paulino Urea nitrogen [Mass/Vol] 15.0 mg/dL Normal 7.0-18.0 [facility] Comment on above: Performed By: #### B MP #### [facility] [address] [place] [address] Dr. Oscar Paulino Urea nitrogen/Creatinine [Mass ratio] 14.3 mg/mg Normal [facility] Comment on above: Performed By: #### B MP #### [facility] [address] [place] [address] Dr. Oscar Paulino PROTIMEon 06-28-2022 INR Coag (PPP) [Relative time] 1.03 {INR} Normal [facility] Comment on above: Performed By: #### T SH, LIPID, CMP #### [facility] [address] [place] [address] Dr. Oscar Paulino INR GUIDELINES SEE BELOW Normal [facility] Comment on above: Result Comment: ELYSIA RED INR: 2.0 - 3.0 CONDITIONS NOT LISTED BELOW 2.5 - 3.5 FOR PROSTHETIC HEART VALVE REPLACEMENT 2.5 - 3.5 RECURRENT THROMBOSIS Performed By: #### T SH, LIPID, CMP #### [facility] [address] [place] [address] [address] Oscar Paulino PT Coag (PPP) [Time] 11.1 s Normal 9.0-11.6 [facility] Comment on above: Performed By: #### T SH, LIPID, CMP #### [facility] [address] [place] [address] [address] Oscar Paulino PTTon 06-28-2022 aPTT Coag (Bld) [Time] 26.2 s Normal 22.3-36.2 [facility] Comment on above: Performed By: #### T SH, LIPID, CMP #### [facility] [address] [place] [address] [address] Oscar Paulino Tobacco Screening.on 022 Adult depression screening assessment Yes [facility] Work Phone: Adult depression screening assessment No [facility] 250 DO Work Phone: Fall risk assessment a) No falls within the last year [facility] 250 DO Work Phone: Tobacco use status [facility] b) No [facility] 250 DO Work Phone: Tobacco Screening. 1-Several days [facility] 250 DO Work Phone: Tobacco Screening. 0-Not at all [facility] 250 DO Work Phone: Tobacco Screening. 2-More than half the days [facility] 250 DO Work Phone: Tobacco Screening. Somewhat Difficult [facility] 250 DO Work Phone: CT STROKE HEAD [...] by: EBONI PETE Date: 2022-04-08 00:27 Normal [facility] CARDIAC STRESS/REST INJE CTIONon 10-03-2021 [facility] CARDIAC STRESS/REST INJECTION Patient Name: NEIL WILCOX STUDY: MYOCARDIAL PERFUSION STRESS TEST WITH LEXISCAN Performing facility: [facility], [address] [place] [address], [address], [place] [address] [facility] Provider: Loulou Arreguin RN, DIST[employer]BUTION AGENT PCP: Dr. Paul Cooney Supervising provider: Erick Wise DO, [facility] INDICATION: HTN Fatigue HISTORY: Gender: M; Age: 75 y/o ; Height: 0 cm; Weight: 0 kg. High Cholesterol; HTN; Fatigue; TIA Vertigo Denies smoking. COMPARISON: No comparison. ACCESSION NUMBER(S): [id number]; [id number]; [id number] ORDERING CLINICIAN: LOULOU ARREGUIN TECHNIQUE: ONE DAY [...] Electronically signed by: MATTI MIDDLETON MD Normal [facility] Falls Risk Screeningon 08-31 Fall risk assessment a) No falls within the last year [facility] 250 DO Work Phone: Tobacco use status [facility] b) No [facility] 250 DO Work Phone: Tobacco Screening.on Fall risk assessment a) No falls within the last year [facility] 250 DO Work Phone: Tobacco use status [facility] b) No [facility] 250 DO Work Phone: BASIC METABOLIC PANELon 03-24 Calcium [Mass/Vol] 8.9 mg/dL Normal 8.5-10.4 [facility] Comment on above: Result Comment: RESU LT CHECKED Anion gap [Moles/Vol] 9 mmol/L Normal 0-19 [facility] Chloride [Moles/Vol] 104 mmol/L Normal 97-107 [facility] CO2 [Moles/Vol] 24 mmol/L Normal 24-31 [facility] Creatinine [Mass/Vol] 0.9 mg/dL Normal 0.4-1.6 [facility] ESTIMATED GFR 88 mL/min/1.73 m2 Normal [facility] Comment on above: Result Comment: GFR ml/min/1.73m2 Stage ----- 90 1 60-89 2 30-59 3 15-29 4 <15 5 For -Americans, multiply EGFR result by 1.210 Calculation not validated for patients under 18 years of age. Performed at [facility] [address] [facility] [address] Glucose [Mass/Vol] 134 mg/dL High 65-99 [facility] Potassium [Moles/Vol] 3.9 mmol/L Normal 3.4-5.1 [facility] Sodium [Moles/Vol] 137 mmol/L Normal 133-145 [facility] Urea nitrogen [Mass/Vol] 13 mg/dL Normal 8-25 [facility] Urea nitrogen/Creatinine [Mass ratio] 14.4 mg/mg Normal 8-21 [facility] CBC with Diffon 04-06-2021 AB IMMATURE NEUT 0.00 K/UL Normal 0.0-0.1 [facility] ABS BASO 0.00 K/UL Normal 0.00-0.22 [facility] ABS EOS 0.02 K/UL Normal 0-0.45 [facility] ABS NEUTROPHILS 3.73 K/UL Normal 1.8-7.7 [facility] ABS.NEUT.CALCULATED 3.73 K/UL Normal [facility] Comment on above: Result Comment: Perf ormed at [facility] [address] [facility] [address] Basophils/100 WBC (Bld) 0.00 % Normal 0-1 [facility] DIFF TYPE AUTO DIFF Normal [facility] Eosinophils/100 WBC (Bld) 0.40 % Normal 0-3 [facility] Erythrocyte distribution width (RBC) [Ratio] 11.6 % Low 11.7-15.0 [facility] Hematocrit (Bld) [Volume fraction] 29.6 % Low 41-50 [facility] Hemoglobin (Bld) [Mass/Vol] 10.0 g/dL Low 13.5-16.5 [facility] Lymphocytes (Bld) [#/Vol] 0.97 10*3/uL Low 1.2-3.2 [facility] Lymphocytes/100 WBC (Bld) 19.10 % Low 20-40 [facility] MCH (RBC) [Entitic mass] 35.5 pg High 26-34 [facility] MCHC 33.8 % Normal 31-37 [facility] MCV (RBC) [Entitic vol] 105.0 fL High 80-100 [facility] MEAN PLT VOL 8.4 CU Normal 7.0-12.6 [facility] Monocytes (Bld) [#/Vol] 0.35 10*3/uL Normal 0-0.8 [facility] Monocytes/100 WBC (Bld) 6.90 % Normal 0-8 [facility] Neutrophils/100 WBC (Bld) 0.00 % Normal 0.0-1.0 [facility] Neutrophils/100 WBC (Bld) 73.60 % High 50-70 [facility] Platelets (Bld) [#/Vol] 115 10*3/uL Low 150-450 [facility] RBC (Bld) [#/Vol] 2.82 10*6/uL Low 4.5-5.5 [facility] RDW-SD 44.8 FL Normal 37.0-54.0 [facility] WBC (Bld) [#/Vol] 5.1 10*3/uL Normal 4.5-11.0 [facility] PROTHROMBIN TIMEon 1 INR Coag (PPP) [Relative time] 1.0 {INR} Normal 0.86-1.16 [facility] Comment on above: Result Comment: INR Theraputic Range: 2.0-3.5 Performed at [facility] [address] [facility] [address] PT Coag (PPP) [Time] 11.3 s Normal 9.3-12.7 [facility] ANTICOAGULANT INFORMATION NOT REPO RTED TO LABORATORY Normal [facility] PTTon 04-06-2021 aPTT Coag (Bld) [Time] 21.9 s Low 22.0-32.5 [facility] Comment on above: Result Comment: Perf ormed at [address] [address] CBC with Diffon 04-01-2021 AB IMMATURE NEUT 0.00 K/UL Normal 0.0-0.1 [facility] ABS BASO 0.02 K/UL Normal 0.00-0.22 [facility] ABS EOS 0.19 K/UL Normal 0-0.45 [facility] ABS NEUTROPHILS 1.56 K/UL Low 1.8-7.7 [facility] ABS.NEUT.CALCULATED 1.56 K/UL Normal [facility] Comment on above: Result Comment: Perf ormed at [address] [address] Basophils/100 WBC (Bld) 0.60 % Normal 0-1 [facility] DIFF TYPE AUTO DIFF Normal [facility] Eosinophils/100 WBC (Bld) 5.30 % High 0-3 [facility] Erythrocyte distribution width (RBC) [Ratio] 11.6 % Low 11.7-15.0 [facility] Hematocrit (Bld) [Volume fraction] 40.9 % Low 41-50 [facility] Hemoglobin (Bld) [Mass/Vol] 13.4 g/dL Low 13.5-16.5 [facility] Lymphocytes (Bld) [#/Vol] 1.44 10*3/uL Normal 1.2-3.2 [facility] Lymphocytes/100 WBC (Bld) 40.30 % High 20-40 [facility] MCH (RBC) [Entitic mass] 35.2 pg High 26-34 [facility] MCHC 32.8 % Normal 31-37 [facility] MCV (RBC) [Entitic vol] 107.3 fL High 80-100 [facility] MEAN PLT VOL 8.5 CU Normal 7.0-12.6 [facility] Monocytes (Bld) [#/Vol] 0.36 10*3/uL Normal 0-0.8 [facility] Monocytes/100 WBC (Bld) 10.10 % High 0-8 [facility] Neutrophils/100 WBC (Bld) 0.00 % Normal 0.0-1.0 [facility] Neutrophils/100 WBC (Bld) 43.70 % Low 50-70 [facility] Platelets (Bld) [#/Vol] 149 10*3/uL Low 150-450 [facility] RBC (Bld) [#/Vol] 3.81 10*6/uL Low 4.5-5.5 [facility] RDW-SD 46.3 FL Normal 37.0-54.0 [facility] WBC (Bld) [#/Vol] 3.6 10*3/uL Low 4.5-11.0 [facility] COMPREHENSIVE METABOLIC PANE Melvin 04-01-2021 Albumin [Mass/Vol] 4.1 g/dL Normal 3.5-5.0 [facility] Albumin/Globulin [Mass ratio] 1.2 {ratio} Low 1.5-3.0 [facility] ALP [Catalytic activity/Vol] 77 U/L Normal 35-125 [facility] ALT [Catalytic activity/Vol] 16 U/L Normal 5-40 [facility] Anion gap [Moles/Vol] 10 mmol/L Normal 0-19 [facility] AST [Catalytic activity/Vol] 18 U/L Normal 5-40 [facility] Bilirubin [Mass/Vol] 0.3 mg/dL Normal 0.1-1.2 [facility] Calcium [Mass/Vol] 10.0 mg/dL Normal 8.5-10.4 [facility] Chloride [Moles/Vol] 104 mmol/L Normal 97-107 [facility] CO2 [Moles/Vol] 27 mmol/L Normal 24-31 [facility] Creatinine [Mass/Vol] 0.9 mg/dL Normal 0.4-1.6 [facility] ESTIMATED GFR 88 mL/min/1.73 m2 Normal [facility] Comment on above: Result Comment: GFR ml/min/1.73m2 Stage ----- 90 1 60-89 2 30-59 3 15-29 4 <15 5 For -Americans, multiply EGFR result by 1.210 Calculation not validated for patients under 18 years of age. Performed at [facility] [address] [facility] [address] Globulin (S) [Mass/Vol] 3.3 g/dL Normal 1.9-3.7 [facility] Glucose [Mass/Vol] 95 mg/dL Normal 65-99 [facility] Potassium [Moles/Vol] 4.3 mmol/L Normal 3.4-5.1 [facility] Protein [Mass/Vol] 7.4 g/dL Normal 5.9-7.9 [facility] Sodium [Moles/Vol] 141 mmol/L Normal 133-145 [facility] Urea nitrogen [Mass/Vol] 16 mg/dL Normal 8-25 [facility] Urea nitrogen/Creatinine [Mass ratio] 17.8 mg/mg Normal 8-21 [facility] SARS-CoV-2,INFLUENZA A/B NUC LEIC ACID TESTon 04-01-2021 EUA DISCLAIMER [facility] Comment on above: Result Comment: This [...] or revoked sooner. Performed at [place] [address] FLU A by PCR Negative [facility] FLU B by PCR Negative [facility] SARS-CoV-2 (COVID-19) RNA KEIKO+probe Ql (Unsp spec) Negative Normal NEG [facility] TYPE AND SCREENon 04-01-2021 TYPE AND SCREEN BLOOD COMPONENT TYPE - RED CELL GROUP Performed at [place] [address] UNITS ORDERED - 0 Performed at [place] [address] SPECIMEN EXPIRATION - 04/08/2021 Performed at [place] [id number] ABO/RH(D) - A POSITIVE Performed at [address] [address] ANTIBODY SCREEN - NEGATIVE Performed at [address] [address] ARM BAND NUMBER - [id number] Performed at [address] [address] SURGERY DATE - [id number] Performed at [address] [address] TEST ORDERED - TYPE AND SCREEN Performed at [place] [address] PT TRANSFUSION HISTORY - BLOOD BANK RECORD SEARCH COMPLETED NO PREVIOUS RECORD NO PREVIOUS TRANSFUSIONS IN LIFETIME Performed at [place] [address] Normal [facility] Comment on above: Performed By: #### T YS #### [place] [address] UA-REFLEX TO CULTUREon 04-01 RBC NONE SEEN Normal 0-3 [facility] Urinalysis dipstick W Reflex Microscopic panel (U) MANUAL MICROSCOPIC URINES Normal [facility] WBC NONE SEEN Normal 0-3 [facility] OTHER Normal [facility] Comment on above: Result Comment: MUCO US Performed at [place] [address] Bacteria identified Cx Nom (U) CULTURE NOT INDICATED Normal [facility] Comment on above: Result Comment: CULT URE NOT INDICATED Performed at [place] [address] BILI Negative Normal NEG [facility] Clarity (U) CLEAR Normal [facility] Color (U) YELLOW Normal [facility] GLUC Negative Normal NEG [facility] Hemoglobin Ql (U) Negative Normal NEG [facility] KET Negative Normal NEG [facility] LEUK Negative Normal NEG [facility] NIT Negative Normal NEG [facility] pH (U) 6.5 [pH] Normal 4.6-8.0 [facility] PROT TRACE Abnormal NEG [facility] SP GRAV,URINE 1.025 Normal 1.005-1.03 0 [facility] URO 0.2 MG/DL Normal 0-1.0 [facility] Basophils Auto (Bld) [#/Vol] on 02-07-2021 Basophils (Bld) [#/Vol] 0.0 10*3/uL 0.0-0.2 [facility] Basophils/100 WBC Auto (Bld) on 02-07-2021 Basophils/100 WBC (Bld) 0.2 % [facility] Blood hemoglobin measurement (mass/volume)on 02-07-2021 Hemoglobin (Bld) [Mass/Vol] 12.8 g/dL 13.0-17.0 [facility] Blood leukocytes automated c ount (number/volume)on 02-07-2021 WBC (Bld) [#/Vol] 3.5 10*3/uL 4.5-11.0 [facility] Body fluid albumin measureme nt (mass/volume)on 02-07-2021 Albumin (Body fld) [Mass/Vol] 3.7 g/dL 3.2-5.5 [facility] Cholesterol [Mass/volume] in Serum or Plasmaon 02-07-2021 Cholesterol [Mass/Vol] 127 mg/dL 140-200 [facility] Comment on above: Chol less than 200 [...] (S/P/Bld)on 02-07-2021 Creatinine [Mass/Vol] 0.95 mg/dL 0.64-1.27 [facility] Eosinophils Auto (Bld) [#/Vo l]on 02-07-2021 [...] 02-07-2021 MCHC (RBC) [Mass/Vol] 33.4 g/dL 32.5-35.6 [facility] MCV Auto (RBC) [Entitic vol] on [...] Plasmaon 02-07-2021 Protein [Mass/Vol] 7.3 g/dL 6.1-7.[facility] RBC Auto (Bld) [#/Vol]on RBC (Bld) [#/Vol] 3.59 10*6/uL 3.90-5.60 [facility] Serum or plasma alanine huntley otransferase [...] (mass/volume)on 02-07-2021 Calcium [Mass/Vol] 9.7 mg/dL 8.2-10.2 [facility] Serum or plasma chloride rishabh surement (moles/volume)on 02-07-2021 Chloride [Moles/Vol] 102 mmol/L 95-114 [facility] Serum or plasma glucose ilana urement (mass/volume)on 02-07-2021 Glucose [Mass/Vol] 95 mg/dL 70-100 [facility] Comment on above: ADA recommended refe [...] (moles/volume)on 02-07-2021 Potassium [Moles/Vol] 4.5 mmol/L 3.5-5.1 [facility] Serum or plasma sodium measu rement (moles/volume)on 02-07-2021 Sodium [Moles/Vol] 137 mmol/L 136-146 [facility] Serum or plasma total biliru bin measurement (mass/volume)on 02-07-2021 Bilirubin [Mass/Vol] 0.6 mg/dL 0.3-1.2 [facility] Serum or plasma total carbon dioxide measurement (moles/volume)on 02-07-2021 CO2 [Moles/Vol] 24.7 mmol/L 22.0-30.0 [facility] Serum or plasma total choles terol/high density lipoprotein (HDL) cholesterol mass noni 02-07-2021 Cholesterol.total/Chol esterol in HDL [Mass ratio] 2.5 {ratio} [facility] Serum or plasma urea nitroge n measurement (mass/volume)on 02-07-2021 Urea nitrogen [Mass/Vol] 19 mg/dL 9-23 [facility] TSH DL <= 0.005 mIU/L Qnon 0 - TSH Qn 1.17 m[IU]/L 0.45-5.33 [facility] Thyroxine (T4) free [Mass/vo lume] in Serum or Plasmaon 02-07-2021 Free T4 [Mass/Vol] 0.88 ng/dL 0.61-1.12 [facility] Triglyceride [Mass/volume] i n Serum or Plasmaon 02-07-2021 Triglyceride [Mass/Vol] 52 mg/dL 35-149 [facility] Comment on above: TRIG ATP III CLASSIF ICATIONTRIG less than 150 mg/dL NormalTRIG 150-199 mg/dL Borderline highTRIG 200-500 mg/dL High TRIG greater than 500 mg/dL Very highStandard traceable to the Center for Disease Conrtrol and Prevention (CDC) test method. WOUND CULTURE-TISSUEon 12-22 WOUND CULTURE-TISSUE Specimen source XXX : SHOULDER RIGHT Performed at [place] [address] [address] XXX-Imp: HOLD FOR 2 WEEKS Microscopic observation: NO ORGANISMS SEEN 1+ WBC Bacteria identified: ANAEROBIC GRAM POSITIVE BACILLI ONE COLONY MOST CLOSELY RESEMBLING CUTIBACTERIUM (PROPIONIBACTERIUM) [place] [id number] : FINAL 12/22/2020 Normal [facility] Comment on above: Performed By: #### [facility] #### [place] [address] CBC with Diffon 12-17-2020 AB IMMATURE NEUT 0.00 K/UL Normal 0.0-0.1 [facility] ABS BASO 0.00 K/UL Normal 0.00-0.22 [facility] ABS EOS 0.00 K/UL Normal 0-0.45 [facility] ABS NEUTROPHILS 2.47 K/UL Normal 1.8-7.7 [facility] ABS.NEUT.CALCULATED 2.47 K/UL Normal [facility] Comment on above: Result Comment: Perf ormed at [place] [id number] Basophils/100 WBC (Bld) 0.00 % Normal 0-1 [facility] DIFF TYPE AUTO DIFF Normal [facility] Eosinophils/100 WBC (Bld) 0.00 % Normal 0-3 [facility] Erythrocyte distribution width (RBC) [Ratio] 12.1 % Normal 11.7-15.0 [facility] Hematocrit (Bld) [Volume fraction] 30.6 % Low 41-50 [facility] Hemoglobin (Bld) [Mass/Vol] 10.4 g/dL Low 13.5-16.5 [facility] Lymphocytes (Bld) [#/Vol] 0.75 10*3/uL Low 1.2-3.2 [facility] Lymphocytes/100 WBC (Bld) 20.90 % Normal 20-40 [facility] MCH (RBC) [Entitic mass] 36.2 pg High 26-34 [facility] MCHC 34.0 % Normal 31-37 [facility] MCV (RBC) [Entitic vol] 106.6 fL High 80-100 [facility] MEAN PLT VOL 8.4 CU Normal 7.0-12.6 [facility] Monocytes (Bld) [#/Vol] 0.37 10*3/uL Normal 0-0.8 [facility] Monocytes/100 WBC (Bld) 10.30 % High 0-8 [facility] Neutrophils/100 WBC (Bld) 0.00 % Normal 0.0-1.0 [facility] Neutrophils/100 WBC (Bld) 68.80 % Normal 50-70 [facility] Platelets (Bld) [#/Vol] 122 10*3/uL Low 150-450 [facility] RBC (Bld) [#/Vol] 2.87 10*6/uL Low 4.5-5.5 [facility] RDW-SD 47.8 FL Normal 37.0-54.0 [facility] WBC (Bld) [#/Vol] 3.6 10*3/uL Low 4.5-11.0 [facility] COMPREHENSIVE METABOLIC PANE Melvin 12-17-2020 Albumin [Mass/Vol] 3.5 g/dL Normal 3.5-5.0 [facility] Albumin/Globulin [Mass ratio] 1.3 {ratio} Low 1.5-3.0 [facility] ALP [Catalytic activity/Vol] 63 U/L Normal 35-125 [facility] ALT [Catalytic activity/Vol] 10 U/L Normal 5-40 [facility] Comment on above: Result Comment: Perf ormed at [facility] [address] [facility] [address] Anion gap [Moles/Vol] 11 mmol/L Normal 0-19 [facility] AST [Catalytic activity/Vol] 15 U/L Normal 5-40 [facility] Bilirubin [Mass/Vol] 0.7 mg/dL Normal 0.1-1.2 [facility] Calcium [Mass/Vol] 9.0 mg/dL Normal 8.5-10.4 [facility] Chloride [Moles/Vol] 99 mmol/L Normal 97-107 [facility] CO2 [Moles/Vol] 26 mmol/L Normal 24-31 [facility] Creatinine [Mass/Vol] 0.9 mg/dL Normal 0.4-1.6 [facility] Globulin (S) [Mass/Vol] 2.7 g/dL Normal 1.9-3.7 [facility] Glucose [Mass/Vol] 129 mg/dL High 65-99 [facility] Potassium [Moles/Vol] 3.8 mmol/L Normal 3.4-5.1 [facility] Protein [Mass/Vol] 6.2 g/dL Normal 5.9-7.9 [facility] Sodium [Moles/Vol] 136 mmol/L Normal 133-145 [facility] Urea nitrogen [Mass/Vol] 13 mg/dL Normal 8-25 [facility] Urea nitrogen/Creatinine [Mass ratio] 14.4 mg/mg Normal 8-21 [facility] FREE T4on 12-09-2020 Free T4 [Mass/Vol] 1.2 ng/dL Normal 0.9-1.7 [facility] Comment on above: Result Comment: Perf ormed at [address] [address] Performed By: #### [facility] #### Main Laboratory [address] [address] CBC with Diffon 12-08-2020 ABS NEUTROPHILS 1.38 K/UL Low 1.8-7.7 [facility] Comment on above: Result Comment: DARELL ECTED ON 12/08 AT 1254: PREVIOUSLY REPORTED 1.39 PLATELET ESTIMATE ADEQUATE Normal [facility] RBC morphology finding Nom (Bld) CONSISTENT WITH PERIPHERAL SMEAR Normal [facility] WBC MORPHOLOGY SMEAR REVIEWED AND F OUND CONSISTENT WITH AUTOMATED DIFFERENTIAL Normal [facility] AB IMMATURE NEUT 0.00 K/UL Normal 0.0-0.1 [facility] ABS BASO 0.01 K/UL Normal 0.00-0.22 [facility] ABS EOS 0.20 K/UL Normal 0-0.45 [facility] ABS.NEUT.CALCULATED 1.39 K/UL Normal [facility] Comment on above: Result Comment: Perf ormed at [facility] [address] [facility] [address] Basophils/100 WBC (Bld) 0.30 % Normal 0-1 [facility] DIFF TYPE AUTO DIFF Normal [facility] Eosinophils/100 WBC (Bld) 6.40 % High 0-3 [facility] Erythrocyte distribution width (RBC) [Ratio] 11.9 % Normal 11.7-15.0 [facility] Hematocrit (Bld) [Volume fraction] 40.0 % Low 41-50 [facility] Hemoglobin (Bld) [Mass/Vol] 13.5 g/dL Normal 13.5-16.5 [facility] Lymphocytes (Bld) [#/Vol] 1.20 10*3/uL Normal 1.2-3.2 [facility] Lymphocytes/100 WBC (Bld) 38.60 % Normal 20-40 [facility] MCH (RBC) [Entitic mass] 36.0 pg High 26-34 [facility] MCHC 33.8 % Normal 31-37 [facility] MCV (RBC) [Entitic vol] 106.7 fL High 80-100 [facility] MEAN PLT VOL 8.5 CU Normal 7.0-12.6 [facility] Monocytes (Bld) [#/Vol] 0.31 10*3/uL Normal 0-0.8 [facility] Monocytes/100 WBC (Bld) 10.00 % High 0-8 [facility] Neutrophils/100 WBC (Bld) 0.00 % Normal 0.0-1.0 [facility] Neutrophils/100 WBC (Bld) 44.70 % Low 50-70 [facility] Platelets (Bld) [#/Vol] 168 10*3/uL Normal 150-450 [facility] RBC (Bld) [#/Vol] 3.75 10*6/uL Low 4.5-5.5 [facility] RDW-SD 46.6 FL Normal 37.0-54.0 [facility] WBC (Bld) [#/Vol] 3.1 10*3/uL Low 4.5-11.0 [facility] COMPREHENSIVE METABOLIC PANE Melvin 12-08-2020 Albumin [Mass/Vol] 4.2 g/dL Normal 3.5-5.0 [facility] Albumin/Globulin [Mass ratio] 1.3 {ratio} Low 1.5-3.0 [facility] ALP [Catalytic activity/Vol] 77 U/L Normal 35-125 [facility] ALT [Catalytic activity/Vol] 10 U/L Normal 5-40 [facility] Anion gap [Moles/Vol] 10 mmol/L Normal 0-19 [facility] AST [Catalytic activity/Vol] 16 U/L Normal 5-40 [facility] Bilirubin [Mass/Vol] 0.7 mg/dL Normal 0.1-1.2 [facility] Calcium [Mass/Vol] 9.6 mg/dL Normal 8.5-10.4 [facility] Chloride [Moles/Vol] 102 mmol/L Normal 97-107 [facility] CO2 [Moles/Vol] 28 mmol/L Normal 24-31 [facility] Creatinine [Mass/Vol] 1.1 mg/dL Normal 0.4-1.6 [facility] ESTIMATED GFR 70 mL/min/1.73 m2 Normal [facility] Comment on above: Result Comment: GFR ml/min/1.73m2 Stage ----- 90 1 60-89 2 30-59 3 15-29 4 <15 5 For -Americans, multiply EGFR result by 1.210 Calculation not validated for patients under 18 years of age. Performed at [facility] [address] [facility] [address] Globulin (S) [Mass/Vol] 3.2 g/dL Normal 1.9-3.7 [facility] Glucose [Mass/Vol] 94 mg/dL Normal 65-99 [facility] Potassium [Moles/Vol] 4.1 mmol/L Normal 3.4-5.1 [facility] Protein [Mass/Vol] 7.4 g/dL Normal 5.9-7.9 [facility] Sodium [Moles/Vol] 140 mmol/L Normal 133-145 [facility] Urea nitrogen [Mass/Vol] 15 mg/dL Normal 8-25 [facility] Urea nitrogen/Creatinine [Mass ratio] 13.6 mg/mg Normal 8-21 [facility] EKGon 12-08-2020 Electrocardiogram EKG Ventricular Rate : 57 BPM Atrial Rate : 57 BPM P-R Interval : 174 ms QRS Duration : 102 ms Q-T Interval : 430 ms QTC Calculation(Bazett) : 418 ms Calculated P [place] : 74 degrees Calculated R [place] : 56 degrees Calculated T [place] : 69 degrees Diagnosis:Sinus bradycardia with Premature atrial complexes and Premature ventricular complexes or Fusion complexes Otherwise normal ECG When compared with ECG of 08-DEC-2020 11:04, Premature atrial complexes are now Present Confirmed by XIN TONG DO ([id number]) on 12/10/2020 9:36:45 AM Normal [facility] Electrocardiogram EKG Ventricular Rate : 51 BPM Atrial Rate : 51 BPM P-R Interval : 186 ms QRS Duration : 102 ms Q-T Interval : 432 ms QTC Calculation(Bazett) : 398 ms Calculated P [place] : 70 degrees Calculated R [place] : 44 degrees Calculated T [place] : 63 degrees Diagnosis:Sinus bradycardia with occasional Premature ventricular complexes Otherwise normal ECG No previous ECGs available Confirmed by XIN TONG DO ([id number]) on 12/10/2020 9:37:02 AM [facility] SARS-CoV-2,INFLUENZA A/B NUC LEIC ACID TESTon 12-08-2020 EUA DISCLAIMER Normal [facility] Comment on above: Result Comment: This test [...] is terminated or revoked sooner. Performed at [place] [id number] FLU A by PCR Negative Normal [facility] FLU B by PCR Negative Normal [facility] SARS-CoV-2 (COVID-19) RNA KEIKO+probe Ql (Unsp spec) Negative Normal NEG [facility] TSHon 12-08-2020 TSH 0.24 MIU/L Low 0.27-4.20 [facility] Comment on above: Result Comment: Perf ormed at [address] [address] Performed By: #### T SHR ####[place] [address] [address] UA-REFLEX TO CULTUREon 12-08 RBC OCC Normal 0-3 [facility] Urinalysis dipstick W Reflex Microscopic panel (U) MANUAL MICROSCOPIC URINES Normal [facility] WBC OCC Normal 0-3 [facility] OTHER Normal [facility] Comment on above: Result Comment: PRES ENT MUCOUS Performed at [place] [id number] Bacteria identified Cx Nom (U) CULTURE NOT INDICATED Normal [facility] Comment on above: Result Comment: CULT URE NOT INDICATED Performed at [address] [address] BILI Negative Normal NEG [facility] Clarity (U) CLEAR Normal [facility] Color (U) YELLOW Normal [facility] GLUC Negative Normal NEG [facility] Hemoglobin Ql (U) Negative Normal NEG [facility] KET Negative Normal NEG [facility] LEUK Negative Normal NEG [facility] NIT Negative Normal NEG [facility] pH (U) 6.0 [pH] Normal 4.6-8.0 [facility] PROT TRACE Abnormal NEG [facility] SP GRAV,URINE 1.025 Normal 1.005-1.03 0 [facility] URO 0.2 MG/DL Normal 0-1.0 [facility] B12/Folate Panelon 1 Cobalamin (Vitamin B12) [Mass/Vol] 507 pg/mL Normal 232-1245 [facility] Comment on above: Performed By: #### F T4, B12FOL, TSHX #### [facility] [employer] [facility] [place] [address] Vending Machine Filler: Juan F Dominguez MD Folic Acid 10.6 ng/mL Normal >4.8 [facility] Comment on above: Performed By: #### F T4, B12FOL, TSHX #### [facility] [employer] [address] [place] [phone] Vending Machine Filler: Juan F Dominguez MD T4, Freeon 10-13-2020 Thyroxine, Free 0.97 ng/dL 0.93 - 1.7 ng/dL [place], [place] TSH w/reflex to FT4on 2020 TSH Qn 0.04 m[IU]/L Low 0.30-5.00 [facility] Comment on above: Performed By: #### F T4, B12FOL, TSHX #### [address] [phone] Vending Machine Filler: Juan F Dominguez MD TSH with Reflexon 10-13-2020 Interpretation and review of laboratory results Abnormal [place], [place] TSH Qn 0.04 m[IU]/L Low [place] Thyroxine, Freeon 10-13-2020 Thyroxine, Free 0.97 ng/dL Normal 0.93-1.70 [facility] Comment on above: Performed By: #### F T4, B12FOL, TSHX #### [address] [phone] [employer]ending Machine Filler: Juan F Dominguez MD Vitamin B12 & Folateon 10-135 Cobalamin (Vitamin B12) [Mass/Vol] 507 pg/mL 232 - 1245 pg/mL [place], [place] Folate 10.6 ng/mL >4.8 [place], [place] C REACTIVE PROTEINon 021 C REACTIVE PROTEIN 0.3 MG/DL Normal 0-2.0 [facility] Comment on above: Result Comment: LESS THAN Performed at [address] [address] Performed By: #### C RP #### Main Laboratory [address] [address] CBC with Diffon 10-11-2020 AB IMMATURE NEUT 0.00 K/UL Normal 0.0-0.1 [facility] ABS BASO 0.02 K/UL Normal 0.00-0.22 [facility] ABS EOS 0.21 K/UL Normal 0-0.45 [facility] ABS NEUTROPHILS 1.64 K/UL Low 1.8-7.7 [facility] ABS.NEUT.CALCULATED 1.64 K/UL Normal [facility] Comment on above: Result Comment: Perf ormed at [facility] [address] [facility] [address] Basophils/100 WBC (Bld) 0.50 % Normal 0-1 [facility] DIFF TYPE AUTO DIFF Normal [facility] Eosinophils/100 WBC (Bld) 5.10 % High 0-3 [facility] Erythrocyte distribution width (RBC) [Ratio] 11.3 % Low 11.7-15.0 [facility] Hematocrit (Bld) [Volume fraction] 39.6 % Low 41-50 [facility] Hemoglobin (Bld) [Mass/Vol] 13.6 g/dL Normal 13.5-16.5 [facility] Lymphocytes (Bld) [#/Vol] 1.74 10*3/uL Normal 1.2-3.2 [facility] Lymphocytes/100 WBC (Bld) 42.00 % High 20-40 [facility] MCH (RBC) [Entitic mass] 36.2 pg High 26-34 [facility] MCHC 34.3 % Normal 31-37 [facility] MCV (RBC) [Entitic vol] 105.3 fL High 80-100 [facility] MEAN PLT VOL 8.4 CU Normal 7.0-12.6 [facility] Monocytes (Bld) [#/Vol] 0.53 10*3/uL Normal 0-0.8 [facility] Monocytes/100 WBC (Bld) 12.80 % High 0-8 [facility] Neutrophils/100 WBC (Bld) 0.00 % Normal 0.0-1.0 [facility] Neutrophils/100 WBC (Bld) 39.60 % Low 50-70 [facility] Platelets (Bld) [#/Vol] 186 10*3/uL Normal 150-450 [facility] RBC (Bld) [#/Vol] 3.76 10*6/uL Low 4.5-5.5 [facility] RDW-SD 44.8 FL Normal 37.0-54.0 [facility] WBC (Bld) [#/Vol] 4.1 10*3/uL Low 4.5-11.0 [facility] SEDIMENTATION RATEon 021 SEDIMENTATION RATE 50 MM/HR High 0-12 [facility] Comment on above: Result Comment: Perf ormed at [facility] [address] [facility] [address] Automated basophil %on 10-07 Basophils/100 WBC (Bld) [...] 2020 MCHC (RBC) [Mass/Vol] 34.2 g/dL 32.5-35.6 [facility] Automated erythrocyte mean c orpuscular volumeon 2020 MCV (RBC) [Entitic vol] 105.1 fL 83.5-101 [facility] Automated monocyte %on 10-07 Monocytes/100 WBC (Bld) 12.5 % [facility] Automated neutrophil %on Neutrophils/100 WBC (Bld) 58.5 % [facility] Blood erythrocytes automated count (number/volume)on 2020 RBC (Bld) [#/Vol] 3.74 10*6/uL 3.90-5.60 [facility] Blood hemoglobin measurement (mass/volume)on 2020 Hemoglobin (Bld) [Mass/Vol] 13.4 g/dL 13.0-17.0 [facility] Blood leukocytes automated c ount (number/volume)on 2020 WBC (Bld) [#/Vol] 4.6 10*3/uL 4.5-11.0 [facility] Blood neutrophil count by au tomated method (number/volume)on 2020 Neutrophils (Bld) [#/Vol] 2.7 10*3/uL 1.8-7.7 [facility] Body fluid albumin measureme nt (mass/volume)on 2020 Albumin (Body fld) [Mass/Vol] 3.6 g/dL 3.2-5.5 [facility] Cholesterol [Mass/volume] in Serum or Plasmaon 2020 Cholesterol [Mass/Vol] 93 mg/dL 140-200 [facility] Comment on above: Chol less [...] Plasmaon 2020 Protein [Mass/Vol] 7.3 g/dL 6.1-7.9 [facility] Serum globulin measurement b y calculation [...] (mass/volume)on 2020 Calcium [Mass/Vol] 9.8 mg/dL 8.2-10.2 [facility] Serum or plasma chloride rishabh surement (moles/volume)on 2020 Chloride [Moles/Vol] 104 mmol/L 95-114 [facility] Serum or plasma creatinine m easurement with calculation of estimated glomerular filtron 2020 Creatinine [Mass/Vol] 1.37 mg/dL 0.64-1.27 [facility] Serum or plasma glucose ilana urement (mass/volume)on 2020 Glucose [Mass/Vol] 116 mg/dL 70-100 [facility] Comment on above: ADA recommended refe [...] (moles/volume)on 2020 Potassium [Moles/Vol] 4.1 mmol/L 3.5-5.1 [facility] Serum or plasma sodium measu rement (moles/volume)on 2020 Sodium [Moles/Vol] 140 mmol/L 136-146 [facility] Serum or plasma total biliru bin measurement (mass/volume)on 2020 Bilirubin [Mass/Vol] 0.7 mg/dL 0.3-1.2 [facility] Serum or plasma total carbon dioxide measurement (moles/volume)on 2020 CO2 [Moles/Vol] 24.4 mmol/L 22.0-30.0 [facility] Serum or plasma total choles terol/high [...] Jeffery Caceres MD 02/04/20 Final result Normal [facility] 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 OF T HE HEAD WITHOUT [...] of the visualized skull or soft tissues. [facility] OR [place], pn Incoming R adiant Results From [employer] - 02/04/2020 4:14 PM EDT EXAMINATION: CT [...] cerebral artery infarct without evidence for hemorrhage. [facility], [place] EVENT MONITORon 01-07-2020 EVENT MONITOR [place] [id number] [place] [address] EVENT MONITOR PATIENT NAME: NEIL WILCOX : 1945 MED REC NO: [id number] ROOM: [facility] ACCOUNT NO: [id number] ADMIT DATE: 12/21/2019 PROVIDER: Sabine Schrader EVENT [...] 4. Rare PVC's with couplets. SABINE SCHRADER /PGAYTKATERIN Doc#: Unknown Normal [facility] CTA HEAD NECK W CONTRASTon 0 12-22-2019 [...] Wilton Parekh MD 12/22/19 Final result Normal [facility] Comp Metabolic Pr/rfx MGon 0 12-22-2019 AST [Catalytic activity/Vol] 21 U/L Normal <40 [facility] Comment on above: Performed By: #### C MPX, GLYHGB, LIPR, LACTIC, CDP #### [employer] [facility] [place], [place] [phone] Vending Machine Filler: Juan F Dominguez MD Drug Scr, Abuse, Uron 2019 Amphetamine(s),Ur Negative Normal [facility] Comment on above: Result Comment: (Positive cutoff 1000 ng/mL) Performed By: #### ALEXIS MIRANDA, UMICAO #### [facility] [address] [place] [phone] Vending Machine Filler: Juan F Dominguez MD Barbiturate(s),Ur Positive Abnormal NEG [facility] Comment on above: Result Comment: (Positive cutoff 200 ng/mL) Performed By: #### Artem SCHULZ UA, UMICAO #### [employer] [address] [place] [phone] Vending Machine Filler: Juan F Dominguez MD Base excess Calc (Bld) [Moles/Vol] Negative Normal NEG [facility] Comment on above: Result Comment: (Positive cutoff 300 ng/mL) Performed By: #### ALEXIS MIRANDA, UMICAO #### [employer] [address] [place] [phone] Vending Machine Filler: Juan F Dominguez MD Benzodiazepine(s) Negative Normal NEG [facility] Comment on above: Result Comment: (Positive cutoff 200 ng/mL) Performed By: #### Artem SCHULZ UA, UMICAO #### [employer] [address] [place] [phone] Vending Machine Filler: Juan F Dominguez MD Cannabinoid(s),Ur Negative Normal NEG [facility] Comment on above: Result Comment: (Positive cutoff 50 ng/mL) Performed By: #### Artem SCHULZ UA, UMICAO #### [employer] [address] [place] [phone] Vending Machine Filler: Juan F Dominguez MD Interpretive Info Assay provides medic al screening only. The absence of expected drug(s) and/or Normal [facility] Comment on above: Result Comment: meta bolite(s) may indicate diluted or adulterated urine, limitations of testing or timing of collection. Testing for legal purposes should be confirmed by another method. To request confirmation of test result, please call the lab within 7 days of sample submission. Performed By: #### Artem SCHULZ UA, UMICAO #### [facility] [address] [place] [phone] Vending Machine Filler: Juan F Dominguez MD Methadone Ql (U) Negative Normal NEG [facility] Comment on above: Result Comment: (Positive cutoff 300 ng/mL) Performed By: #### Artem AU UA, UMICAO #### [facility] [address] [place] [address] Vending Machine Filler: Juan F Dominguez MD Opiate(s), Ur Negative Normal NEG [facility] Comment on above: Result Comment: (Positive cutoff 300 ng/mL) Performed By: #### Artem SCHULZ UA, UMICAO #### [facility] [address] [place] [address] Vending Machine Filler: Juan F Dominguez MD Oxycodone, Urine Negative Normal NEG [facility] Comment on above: Result Comment: (Positive cutoff 100 ng/mL) Performed By: #### Artem SCHULZ UA, UMICAO #### [facility] [employer] [address] [place] [address] Vending Machine Filler: Juan F Dominguez MD Phencyclidine, Ur Negative Normal NEG [facility] Comment on above: Result Comment: (Positive cutoff 25 ng/mL) Performed By: #### Artem SCHULZ UA, UMICAO #### [facility] [employer] [facility] [address] [place] [address] Vending Machine Filler: Juan F Dominguez MD Hemoglobin A1Con 12-22-2019 HbA1c (Bld) [Mass fraction] 120 mg/dL Normal [facility] Comment on above: Result Comment: The ADA and AACC recommend providing the estimated average glucose result to permit better patient understanding of their HBA1c result. Performed By: #### Artem SCHULZ UA, UMICAO #### [facility] [address] [place] [address]65 Vending Machine Filler: Juan F Dominguez MD HbA1c (Bld) [Mass fraction] 5.8 % Normal 4.0-6.0 [facility] Comment on above: Performed By: #### ALEXIS MIRANDA, UMICAO #### [facility] [address] [place] [address] Vending Machine Filler: Juan F Dominguez MD Lactic Acidon 12-22-2019 Lactate [Moles/Vol] 1.2 mmol/L Normal 0.7-2.1 [facility] Comment on above: Performed By: #### D ALEXIS SCHULZ, UMICAO #### [facility] [employer] [address] [place] [address] Vending Machine Filler: Juan F Dominguez MD Lipid Profileon 12-22-2019 Cholesterol [Mass/Vol] 137 mg/dL Normal <200 [facility] Comment on above: Result Comment: Cholesterol Guidelines: <200 Desirable 200-240 Borderline >240 Undesirable Performed By: #### ALEXIS MIRANDA, UMICAO #### [facility] [address] [place] [address]781 Vending Machine Filler: Juan F Dominguez MD Cholesterol in HDL [Mass/Vol] 53 mg/dL Normal >40 [facility] Comment on above: Result Comment: HDL Guidelines: <40 Undesirable 40-59 Borderline >59 Desirable Performed By: #### ALEXIS MIRANDA, UMICAO #### [facility] [employer] [address] [place] [address] 136[address] Vending Machine Filler: Juan F Dominguez MD Cholesterol in LDL [Mass/Vol] 73 mg/dL Normal 0-130 [facility] Comment on above: Result Comment: LDL Guidelines: <100 Desirable 100-129 Near to/above Desirable 130-159 Borderline >159 Undesirable Direct (measured) LDL and calculated LDL are not interchangeable tests. Performed By: #### D ALEXIS SCHULZ, UMICAO #### [facility] [address] [place] [address] Vending Machine Filler: Juan F Dominguez MD Cholesterol.total/Chol esterol in HDL [Mass ratio] 2.6 {ratio} Normal <5 [facility] Comment on above: Performed By: #### Artem SCHULZ UA, UMICAO #### [facility] [address] [place] [address] 23786 Vending Machine Filler: Juan F Dominguez MD Triglyceride [Mass/Vol] 57 mg/dL Normal <150 [facility] Comment on above: Result Comment: Triglyceride Guidelines: <150 Desirable 150-199 Borderline 200-499 High >499 Very high Based on AHA Guidelines for fasting triglyceride, June 2012. Performed By: #### Artem SCHULZ UA, UMICAO #### [facility] [address] [place] [address] Vending Machine Filler: Juan F Dominguez MD Urinalysis, Routineon 2019 Acetoacetic Acid,Ur TRACE Abnormal NEG [facility] Comment on above: Performed By: #### Artem SCHULZ UA, UMICAO #### [facility] [address] [place] [address]41 Vending Machine Filler: Juan F Dominguez MD Bilirubin, SemiQt,Ur Negative Normal NEG [facility] Comment on above: Performed By: #### Artem SCHULZ UA, UMICAO #### [facility] [employer] [address] [place] [address] 16736 Vending Machine Filler: Juan F Dominguez MD Color (U) YELLOW Normal YEL [facility] Comment on above: Performed By: #### Artem SCHULZ UA, UMICAO #### [facility] [employer] [address] [place] [address] 65266 Vending Machine Filler: Juan F Dominguez MD Glucose Ql (U) Negative Normal NEG [facility] Comment on above: Performed By: #### Artem SCHULZ UA, UMICAO #### [facility] [address] [place] [address] 31592 Vending Machine Filler: Juan F Dominguez MD Hemoglobin, Ur Negative Normal NEG [facility] Comment on above: Performed By: #### Artem SCHULZ UA, UMICAO #### [facility] [place] [address] Vending Machine Filler: Juan F Dominguez MD Leukocyte esterase Test strip Ql (U) Negative Normal NEG [facility] Comment on above: Performed By: #### Artem AU, UA, UMICAO #### [facility] [address] [place] [address]37 Vending Machine Filler: Juan F Dominguez MD Nitrite,Ur Negative Normal NEG [facility] Comment on above: Performed By: #### Artem AU, UA, UMICAO #### [address] [address] Vending Machine Filler: Juan F Dominguez MD pH (U) 5.0 [pH] Normal 5.0-8.0 [facility] Comment on above: Performed By: #### Artem SCHULZ UA, UMICAO #### [facility] [employer] [address] [place] [address] 98142 Vending Machine Filler: Juan F Dominguez MD Protein Ql (U) 1+ Abnormal NEG [facility] Comment on above: Performed By: #### Artem AU, UA, UMICAO #### [facility] [address] [place] [address]106 Vending Machine Filler: Juan F Dominguez MD Specific gravity (U) [Rel density] 1.025 Normal 1.005-1.03 0 [facility] Comment on above: Performed By: #### Artem AU, UA, UMICAO #### [facility] [address] [place] [address] 05548 Vending Machine Filler: Juan F Dominguez MD Turbidity CLEAR Normal CLEAR [facility] Comment on above: Performed By: #### Artem AU, UA, UMICAO #### [facility] [address] [place] [address] 00680 Vending Machine Filler: Juan F Dominguez MD Urobilinogen,Ur Normal Normal NORM [facility] Comment on above: Performed By: #### Artem AU UA, UMICAO #### [facility] [address] [place] [address] 15028 Vending Machine Filler: Juan F Dominguez MD Urinalysis,Microon 0 ----- Normal [facility] Comment on above: Performed By: #### Artem SCHULZ UA, UMICAO #### [facility] [address] [place] [address] 59837 Vending Machine Filler: Juan F Dominguez MD Casts LM.LPF (Urine sed) [#/Area] 2 TO 5 HYALINE Normal 0-8 [facility] Comment on above: Result Comment: Refe rence range defined for non-centrifuged specimen. Performed By: #### Artem SCHULZ UA, UMICAO #### [address] [address] Vending Machine Filler: Juan F Dominguez MD Epithelial cells LM.HPF (Urine sed) [#/Area] 0 TO 2 Normal 0-5 [facility] Comment on above: Performed By: #### Artem SCHULZ UA, UMICAO #### [facility] [address] [place] [address] 9[address]61 Vending Machine Filler: Juan F Dominguez MD RBC (U) [#/Vol] 0 TO 2 Normal 0-4 [facility] Comment on above: Result Comment: Refe rence range defined for non-centrifuged specimen. Performed By: #### Artem AU UA, UMICAO #### [facility] [address] [place] [address] 82545 Vending Machine Filler: Juan F Dominguez MD WBC (U) [#/Vol] 2 TO 5 Normal 0-5 [facility] Comment on above: Performed By: #### Artem AU, UA, UMICAO #### [facility] [address] [place] [address] 16418 Vending Machine Filler: Juan F Dominguez MD CBC with Diffon 12-21-2019 Abs. Basophil <0.03 Normal 0.00-0.20 [facility] Comment on above: Performed By: #### C MPX, GLYHGB, LIPR, LACTIC, CDP #### [place] [address] Vending Machine Filler: Juan F Dominguez MD Abs.Imm.Granulocyte <0.03 Normal 0.00-0.30 [facility] Comment on above: Performed By: #### C MPX, GLYHGB, LIPR, LACTIC, CDP #### [place] [address] Vending Machine Filler: Juan F Dominguez MD Abs.Neutrophil (Seg) 2.41 k/uL Normal 1.50-8.10 [facility] Comment on above: Performed By: #### C MPX, GLYHGB, LIPR, LACTIC, CDP #### [place] [address] Vending Machine Filler: Juan F Dominguez MD Basophils/100 WBC (Bld) 0 % Normal 0-2 [facility] Comment on above: Performed By: #### C MPX, GLYHGB, LIPR, LACTIC, CDP #### [place] [address] Vending Machine Filler: Juan F Dominguez MD Eosinophils (Bld) [#/Vol] 0.08 10*3/uL Normal 0.00-0.44 [facility] Comment on above: Performed By: #### C MPX, GLYHGB, LIPR, LACTIC, CDP #### [place] [address] Vending Machine Filler: Juan F Dominguez MD Eosinophils/100 WBC (Bld) 2 % Normal 1-4 [facility] Comment on above: Performed By: #### C MPX, GLYHGB, LIPR, LACTIC, CDP #### [address] [address] Vending Machine Filler: Juan F Dominguez MD Erythrocyte distribution width (RBC) [Ratio] 11.9 % Normal 11.8-14.4 [facility] Comment on above: Performed By: #### C MPX, GLYHGB, LIPR, LACTIC, CDP #### [address] [address] Vending Machine Filler: Juan F Dominguez MD Hematocrit (Bld) [Volume fraction] 38.8 % Low 40.7-50.3 [facility] Comment on above: Performed By: #### C MPX, GLYHGB, LIPR, LACTIC, CDP #### [address] [address] Vending Machine Filler: Juan F Dominguez MD Hemoglobin (Bld) [Mass/Vol] 13.6 g/dL Normal 13.0-17.0 [facility] Comment on above: Performed By: #### C MPX, GLYHGB, LIPR, LACTIC, CDP #### [address] [address] Vending Machine Filler: Juan F Dominguez MD Immature granulocytes (Bld) [#/Vol] 0 % Normal 0 [facility] Comment on above: Performed By: #### C MPX, GLYHGB, LIPR, LACTIC, CDP #### [address] [address] Vending Machine Filler: Juan F Dominguez MD Lymphocytes (Bld) [#/Vol] 1.11 10*3/uL Normal 1.10-3.70 [facility] Comment on above: Performed By: #### C MPX, GLYHGB, LIPR, LACTIC, CDP #### [address] [address] Vending Machine Filler: Juan F Dominguez MD Lymphocytes/100 WBC (Bld) 28 % Normal 24-43 [facility] Comment on above: Performed By: #### C MPX, GLYHGB, LIPR, LACTIC, CDP #### [address] [address] Vending Machine Filler: Juan F Dominguez MD MCH (RBC) [Entitic mass] 35.8 pg High 25.2-33.5 [facility] Comment on above: Performed By: #### C MPX, GLYHGB, LIPR, LACTIC, CDP #### [address] [address] Vending Machine Filler: Juan F Dominguez MD MCHC (RBC) [Mass/Vol] 35.1 g/dL High 28.4-34.8 [facility] Comment on above: Performed By: #### C MPX, GLYHGB, LIPR, LACTIC, CDP #### [place] [address] Vending Machine Filler: Juan F Dominguez MD MCV (RBC) [Entitic vol] 102.1 fL Normal 82.6-102.9 [facility] Comment on above: Performed By: #### C MPX, GLYHGB, LIPR, LACTIC, CDP #### [address] [address] Vending Machine Filler: Juan F Dominguez MD Monocytes (Bld) [#/Vol] 0.41 10*3/uL Normal 0.10-1.20 [facility] Comment on above: Performed By: #### C MPX, GLYHGB, LIPR, LACTIC, CDP #### [address] [address] Vending Machine Filler: Juan F Dominguez MD Monocytes/100 WBC (Bld) 10 % Normal 3-12 [facility] Comment on above: Performed By: #### C MPX, GLYHGB, LIPR, LACTIC, CDP #### [place] [address] Vending Machine Filler: Juan F Dominguez MD Neutrophil (Seg) 60 % Normal 36-65 [facility] Comment on above: Performed By: #### C MPX, GLYHGB, LIPR, LACTIC, CDP #### [address] [address] Vending Machine Filler: Juan F Dominguez MD NRBC Automated 0.0 per 100 WBC Normal 0.0 [facility] Comment on above: Performed By: #### C MPX, GLYHGB, LIPR, LACTIC, CDP #### [address] [address] Vending Machine Filler: Juan F Dominguez MD Platelet mean volume (Bld) [Entitic vol] 8.2 fL Normal 8.1-13.5 [facility] Comment on above: Performed By: #### C MPX, GLYHGB, LIPR, LACTIC, CDP #### [address] [address] Vending Machine Filler: Juan F Dominguez MD Platelets (Bld) [#/Vol] 200 10*3/uL Normal 138-453 [facility] Comment on above: Performed By: #### C MPX, GLYHGB, LIPR, LACTIC, CDP #### [address] [address] Vending Machine Filler: Juan F Dominguez MD RBC (Bld) [#/Vol] 3.80 10*6/uL Low 4.21-5.77 [facility] Comment on above: Performed By: #### C MPX, GLYHGB, LIPR, LACTIC, CDP #### [address] [address] Vending Machine Filler: Juan F Dominguez MD WBC (Bld) [#/Vol] 4.0 10*3/uL Normal 3.5-11.3 [facility] Comment on above: Performed By: #### C MPX, GLYHGB, LIPR, LACTIC, CDP #### [facility] [place] [address] Vending Machine Filler: Juan F Dominguez MD Auto Diff Performed NOT REPORTED Normal [facility] Comment on above: Performed By: #### C MPX, GLYHGB, LIPR, LACTIC, CDP #### [facility] [address] [place] [address] Vending Machine Filler: Juan F Dominguez MD Platelets (Bld) [#/Vol] NOT REPORTED Normal [facility] Comment on above: Performed By: #### C MPX, GLYHGB, LIPR, LACTIC, CDP #### [facility] [address] [place] [address]65 Vending Machine Filler: Juan F Dominguez MD RBC morphology finding Nom (Bld) NOT REPORTED Normal [facility] Comment on above: Performed By: #### C MPX, GLYHGB, LIPR, LACTIC, CDP #### [facility] [address] [place] [address] Vending Machine Filler: Juan F Dominguez MD WBC Morphology NOT REPORTED Normal [facility] Comment on above: Performed By: #### C MPX, GLYHGB, LIPR, LACTIC, CDP #### [facility] [address] [place] [address] Vending Machine Filler: Juan F Dominguez MD Comp Metabolic Pr/rfx MGon 0 12-21-2019 (cont.) Normal [facility] Comment on above: Result Comment: Aver age GFR for 70 or more years old: 75 mL/min/1.73sq m Chronic Kidney Disease: <60 mL/min/1.73sq m Kidney failure: <15 mL/min/1.73sq m eGFR calculated using average adult body mass. Additional eGFR calculator available at: http://[email or web address]/multiple_crcl_[email or web address].htm Performed By: #### C MPX, GLYHGB, LIPR, LACTIC, CDP #### [address] [address] Vending Machine Filler: Juan F Dominguez MD Albumin [Mass/Vol] 3.9 g/dL Normal 3.5-5.2 [facility] Comment on above: Performed By: #### C MPX, GLYHGB, LIPR, LACTIC, CDP #### [address] [address] Vending Machine Filler: Juan F Dominguez MD Albumin/Globulin [Mass ratio] 1.2 {ratio} Normal 1.0-2.5 [facility] Comment on above: Performed By: #### C MPX, GLYHGB, LIPR, LACTIC, CDP #### [address] [address] Vending Machine Filler: Juan F Dominguez MD Alkaline Phos 80 U/L Normal 40-129 [facility] Comment on above: Performed By: #### C MPX, GLYHGB, LIPR, LACTIC, CDP #### [address] [address] Vending Machine Filler: Juan F Dominguez MD ALT [Catalytic activity/Vol] 22 U/L Normal 5-41 [facility] Comment on above: Performed By: #### C MPX, GLYHGB, LIPR, LACTIC, CDP #### [address] [address] Vending Machine Filler: Juan F Dominguez MD Anion gap [Moles/Vol] 15 mmol/L Normal 9-17 [facility] Comment on above: Performed By: #### C MPX, GLYHGB, LIPR, LACTIC, CDP #### [address] [address] Vending Machine Filler: Juan F Dominguez MD Bilirubin Ql (U) 0.74 mg/dL Normal 0.3-1.2 [facility] Comment on above: Performed By: #### C MPX, GLYHGB, LIPR, LACTIC, CDP #### [address] [address] Vending Machine Filler: Juan F Dominguez MD Calcium [Mass/Vol] 9.5 mg/dL Normal 8.6-10.4 [facility] Comment on above: Performed By: #### C MPX, GLYHGB, LIPR, LACTIC, CDP #### [address] [address] Vending Machine Filler: Juan F Dominguez MD Chloride [Moles/Vol] 99 mmol/L Normal 98-107 [facility] Comment on above: Performed By: #### C MPX, GLYHGB, LIPR, LACTIC, CDP #### [address] [address] Vending Machine Filler: Juan F Dominguez MD CO2 [Moles/Vol] 20 mmol/L Normal 20-31 [facility] Comment on above: Performed By: #### C MPX, GLYHGB, LIPR, LACTIC, CDP #### [address] [address] Vending Machine Filler: Juan F Dominguez MD Creatinine [Mass/Vol] 0.77 mg/dL Normal 0.70-1.20 [facility] Comment on above: Performed By: #### C MPX, GLYHGB, LIPR, LACTIC, CDP #### [facility] [address] [place] [address] Vending Machine Filler: Juan F Dominguez MD GFR, Amer >60 Normal >60 [facility] Comment on above: Performed By: #### C MPX, GLYHGB, LIPR, LACTIC, CDP #### [facility] [employer] [address] [place] [address] Vending Machine Filler: Juan F Dominguez MD GFR,non Amer >60 Normal >60 [facility] Comment on above: Performed By: #### C MPX, GLYHGB, LIPR, LACTIC, CDP #### [facility] [employer] [address] [place] [address] Vending Machine Filler: Juan F Dominguez MD Glucose [Mass/Vol] 86 mg/dL Normal 70-99 [facility] Comment on above: Performed By: #### C MPX, GLYHGB, LIPR, LACTIC, CDP #### [facility] [employer] [address] [place] [address] Vending Machine Filler: Juan F Dominguez MD Potassium [Moles/Vol] 4.2 mmol/L Normal 3.7-5.3 [facility] Comment on above: Performed By: #### C MPX, GLYHGB, LIPR, LACTIC, CDP #### [address] [address] Vending Machine Filler: Juan F Dominguez MD Protein [Mass/Vol] 7.2 g/dL Normal 6.4-8.3 [facility] Comment on above: Performed By: #### C MPX, GLYHGB, LIPR, LACTIC, CDP #### [facility] [employer] [address] [place] [address] Vending Machine Filler: Juan F Dominguez MD Sodium [Moles/Vol] 134 mmol/L Low 135-144 [facility] Comment on above: Performed By: #### C MPX, GLYHGB, LIPR, LACTIC, CDP #### [facility] [employer] [address] [place] [address] Vending Machine Filler: Juan F Dominguez MD Urea nitrogen [Mass/Vol] 16 mg/dL Normal 8-23 [facility] Comment on above: Performed By: #### C MPX, GLYHGB, LIPR, LACTIC, CDP #### [facility] [employer] [address] [place] [address] Vending Machine Filler: Juan F Dominguez MD BUN/CRE Ratio NOT REPORTED Normal 9-20 [facility] Comment on above: Performed By: #### C MPX, GLYHGB, LIPR, LACTIC, CDP #### [facility] [address] [place] [address] Vending Machine Filler: Juan F Dominguez MD Staging: NOT REPORTED Normal [facility] Comment on above: Performed By: #### C MPX, GLYHGB, LIPR, LACTIC, CDP #### [facility] [address] [place] [address] Vending Machine Filler: Juan F Dominguez MD Drug Scr, Abuse, Uron 2019 Buprenorphrine, Ur NOT REPORTED Normal NEG [facility] Comment on above: Performed By: #### D AU, UA, UMICAO #### [facility] [employer] [address] [place] [address] Vending Machine Filler: Juan F Dominguez MD MDMA, Urine NOT REPORTED Normal NEG [facility] Comment on above: Performed By: #### D AU, UA, UMICAO #### [facility] [employer] [address] [place] [address] Vending Machine Filler: Juan F Dominguez MD Methamphetamine, Ur NOT REPORTED Normal NEG [facility] Comment on above: Performed By: #### D AU, UA, UMICAO #### [facility] [employer] [address] [place] [address] Vending Machine Filler: Juan F Dominguez MD Propoxyphene,Urine NOT REPORTED Normal NEG [facility] Comment on above: Performed By: #### D AU, UA, UMICAO #### [facility] [employer] [address] [place] [address] Vending Machine Filler: Juan F Dominguez MD Tricyclic antidepressants Screen Ql (U) NOT REPORTED Normal NEG [facility] Comment on above: Performed By: #### D AU, UA, UMICAO #### [facility] [employer] [address] [place] [address] Vending Machine Filler: Juan F Dominguez MD Lactic Acidon 12-21-2019 Lactate [Moles/Vol] NOT REPORTED Normal [facility] Comment on above: Performed By: #### Artem SCHULZ UA, UMICAO #### [facility] [address] [place] [address] [employer]ending Machine Filler: Juan F Dominguez MD Lipid Profileon 12-21-2019 Cholesterol in VLDL [Mass/Vol] NOT REPORTED Normal 10-23 [facility] Comment on above: Performed By: #### Artem SCHULZ UA, UMICAO #### [facility] [address] [place] [address] Vending Machine Filler: Juan F Dominguez MD Urinalysis, Routineon 2019 Comment NOT REPORTED Normal [facility] Comment on above: Performed By: #### Artem SCHULZ UA, UMICAO #### [facility] [address] [place] [address] [employer] Machine Filler: Juan F Dominguez MD Urinalysis,Microon 0 Amorphous sediment LM Ql (Urine sed) NOT REPORTED Normal [facility] Comment on above: Performed By: #### Artem SCHULZ UA, UMICAO #### [facility] [address] [place] [address] [employer] Machine Filler: Juan F Dominguez MD Bacteria LM.HPF (Urine sed) [#/Area] NOT REPORTED Normal [facility] Comment on above: Performed By: #### Artem SCHULZ UA, UMICAO #### [facility] [address] [place] [address] [employer]ending Machine Filler: Juan F Dominguez MD Crystals LM Nom (Urine sed) NOT REPORTED Normal [facility] Comment on above: Performed By: #### Artem SCHULZ UA, UMICAO #### [facility] [address] [place] [address] [employer]ending Machine Filler: Juan F Dominguez MD Epithelial, Renal NOT REPORTED Normal 0 [facility] Comment on above: Performed By: #### D AU, UA, UMICAO #### [facility] [address] [place] [address] [employer]ending Machine Filler: Juan F Dominguez MD Mucus Strands NOT REPORTED Normal NONE [facility] Comment on above: Performed By: #### D AU UA, UMICAO #### [facility] [address] [place] [address] [employer]ending Machine Filler: Juan F Dominguez MD Other Observations NOT REPORTED Normal NREQ [facility] Comment on above: Performed By: #### D AU, UA, UMICAO #### [facility] [address] [place] [address] [employer] Machine Filler: Juan F Dominguez MD Trichomonas NOT REPORTED Normal NONE [facility] Comment on above: Performed By: #### D ZEUS, UA, UMICAO #### [facility] [address] [place] [address] [employer]: Juan F Dominguez MD Yeast LM Ql (Urine sed) NOT REPORTED Normal NONE [facility] Comment on above: Performed By: #### D AU, UA, UMICAO #### [facility] [address] [place] [id number] Vending Machine Filler: Juan F Dominguez MD Vital Signs Date Time Vital Sign Value Performing Clinician Facility 04-01-2024 11:08-0400 Body height 175.26 cm DO Sam Lisbon Work Phone: [facility] 04-01-2024 11:08-0400 Body weight 75.29 kg DO Sam [employer] Work Phone: [facility] 04-01-2024 08:29-0400 Body height 175.26 cm DO Sam Lisbon Work Phone: [facility] 04-01-2024 08:29-0400 Body mass index (BMI) [Ratio] 24.5 kg/m2 DO Sam Lisbon Work Phone: [facility] 04-01-2024 08:29-0400 Body temperature 98 [degF] DO [place] Work Phone: [facility] 04-01-2024 08:29-0400 Diastolic blood pressure 66 mm[Hg] DO Sam Lisbon Work Phone: [facility] 04-01-2024 08:29-0400 Heart rate 90 /min DO Sam Lisbon Work Phone: [facility] 04-01-2024 08:29-0400 Respiratory rate 20 /min DO [place] Work Phone: [facility] 04-01-2024 08:29-0400 SaO2% (BldA) [Mass fraction] 96 % DO [place] Work Phone: [facility] 04-01-2024 08:29-0400 Systolic blood pressure 104 mm[Hg] DO Sam Lisbon Work Phone: [facility] 03-25-2024 08:42-0400 Body temperature 97.9 [degF] DO [place] Work Phone: [facility] 03-25-2024 08:42-0400 Diastolic blood pressure 60 mm[Hg] DO [place] Work Phone: [facility] 03-25-2024 08:42-0400 Heart rate 70 /min DO [place] Work Phone: [facility] 03-25-2024 08:42-0400 Respiratory rate 18 /min DO [place] Work Phone: [facility] 03-25-2024 08:42-0400 SaO2% (BldA) [Mass fraction] 98 % DO [place] Work Phone: [facility] 03-25-2024 08:42-0400 Systolic blood pressure 106 mm[Hg] DO [place] Work Phone: [facility] 03-20-2024 09:23-0400 Body weight 74.7 kg DO Sam Lisbon Work Phone: [facility] 03-20-2024 08:23-0400 Body temperature 98 [degF] DO [place] Work Phone: [facility] 03-20-2024 08:23-0400 Diastolic blood pressure 72 mm[Hg] DO [place] Work Phone: [facility] 03-20-2024 08:23-0400 Heart rate 86 /min DO [place] Work Phone: [facility] 03-20-2024 08:23-0400 Respiratory rate 20 /min DO [place] Work Phone: [facility] 03-20-2024 08:23-0400 SaO2% (BldA) [Mass fraction] 97 % DO [place] Work Phone: [facility] 03-20-2024 08:23-0400 Systolic blood pressure 121 mm[Hg] DO [place] Lisbon Work Phone: [facility] 03-14-2024 08:53-0400 Body temperature 98.2 [degF] DO [place] Lisbon Work Phone: [facility] 03-14-2024 08:53-0400 Body weight 71.07 kg DO [place] Lisbon Work Phone: [facility] 03-14-2024 08:53-0400 Diastolic blood pressure 48 mm[Hg] DO [place] Lisbon Work Phone: [facility] 03-14-2024 08:53-0400 Heart rate 78 /min DO [place] Work Phone: [facility] 03-14-2024 08:53-0400 Respiratory rate 18 /min DO [place] Work Phone: [facility] 03-14-2024 08:53-0400 SaO2% (BldA) [Mass fraction] 95 % DO [place] Lisbon Work Phone: [facility] 03-14-2024 08:53-0400 Systolic blood pressure 84 mm[Hg] DO Sam Lisbon Work Phone: [facility] 03-09-2024 15:11-0400 Body temperature 97.9 [degF] DO [place] Lisbon Work Phone: [facility] 03-09-2024 15:11-0400 Diastolic blood pressure 74 mm[Hg] DO [place] Lisbon Work Phone: [facility] 03-09-2024 15:11-0400 Heart rate 65 /min DO [place] Work Phone: [facility] 03-09-2024 15:11-0400 Respiratory rate 16 /min DO Sam Lisbon Work Phone: [facility] 03-09-2024 15:11-0400 SaO2% (BldA) [Mass fraction] 97 % DO [place] Lisbon Work Phone: [facility] 03-09-2024 15:11-0400 Systolic blood pressure 135 mm[Hg] DO [place] Lisbon Work Phone: [facility] 03-09-2024 06:00-0400 Body weight 77.1 kg DO [place] Work Phone: [facility] 03-07-2024 09:29-0400 Body height 175.26 cm DO [place] Work Phone: [facility] 03-05-2024 19:10-0400 Body temperature 97.4 [degF] DO Sam Lisbon Work Phone: [facility] 03-05-2024 19:10-0400 Diastolic blood pressure 63 mm[Hg] DO [place] Lisbon Work Phone: [facility] 03-05-2024 19:10-0400 Heart rate 75 /min DO [place] Work Phone: [facility] 03-05-2024 19:10-0400 Respiratory rate 21 /min DO Sam Lisbon Work Phone: [facility] 03-05-2024 19:10-0400 SaO2% (BldA) [Mass fraction] 98 % DO [place] Lisbon Work Phone: [facility] 03-05-2024 19:10-0400 Systolic blood pressure 135 mm[Hg] DO [place] Work Phone: [facility] 03-05-2024 18:45-0400 Body height 175.26 cm DO [place] Work Phone: [facility] 03-05-2024 18:45-0400 Body weight 76.2 kg DO [place] Lisbon Work Phone: [facility] 03-05-2024 11:31-0400 Diastolic blood pressure 66 mm[Hg] DO Sam Lisbon Work Phone: [facility] 03-05-2024 11:31-0400 Systolic blood pressure 82 mm[Hg] DO [place] Lisbon Work Phone: [facility] 03-05-2024 11:30-0400 Heart rate 74 /min DO [place] Work Phone: [facility] 03-05-2024 11:30-0400 Respiratory rate 18 /min DO [place] Lisbon Work Phone: [facility] 03-05-2024 11:30-0400 SaO2% (BldA) [Mass fraction] 98 % DO [place] Lisbon Work Phone: [facility] 03-03-2024 13:45-0400 Body weight 78.01 kg DO Sam Lisbon Work Phone: [facility] 03-03-2024 13:45-0400 Diastolic blood pressure 63 mm[Hg] DO [place] Lisbon Work Phone: [facility] 03-03-2024 13:45-0400 Heart rate 71 /min DO Sam Lisbon Work Phone: [facility] 03-03-2024 13:45-0400 Respiratory rate 16 /min DO Sam Lisbon Work Phone: [facility] 03-03-2024 13:45-0400 SaO2% (BldA) [Mass fraction] 99 % DO Sam Lisbon Work Phone: [facility] 03-03-2024 13:45-0400 Systolic blood pressure 112 mm[Hg] DO Sam Lisbon Work Phone: [facility] 02-21-2024 14:59-0400 Body height 175.26 cm DO Sam Lisbon Work Phone: [facility] 02-21-2024 14:59-0400 Body mass index (BMI) [Ratio] 25.4 kg/m2 DO Sam Lisbon Work Phone: [facility] 02-21-2024 14:59-0400 Body temperature 97.7 [degF] DO Sam Cooney Work Phone: [facility] 02-21-2024 14:59-0400 Body weight 78.01 kg DO Sam Cooney Work Phone: [facility] 02-21-2024 14:59-0400 Diastolic blood pressure 58 mm[Hg] DO Sam Lisbon Work Phone: [facility] 02-21-2024 14:59-0400 Heart rate 74 /min DO Sam Lisbon Work Phone: [facility] 02-21-2024 14:59-0400 Respiratory rate 202 /min DO Sam Lisbon Work Phone: [facility] 02-21-2024 14:59-0400 SaO2% (BldA) [Mass fraction] 100 % DO Sam Lisbon Work Phone: [facility] 02-21-2024 14:59-0400 Systolic blood pressure 93 mm[Hg] DO Sam Cooney Work Phone: [facility] 12-03-2023 15:25-0400 Blood Pressure Location Trung FERGUSON [facility] 12-03-2023 15:25-0400 Diastolic blood pressure 74 mm[Hg] Trung FERGUSON [facility] 12-03-2023 15:25-0400 Heart rate 76 /min Trungemily FERGUSON [facility] 12-03-2023 15:25-0400 Respiratory rate 16 /min Trungemily FERGUSON [facility] 12-03-2023 15:25-0400 Systolic blood pressure 137 mm[Hg] Trung FERGUSON [facility] 10-22-2023 11:54-0500 Body height 175.3 cm Za Hernández MD Work Phone: [facility] 10-22-2023 11:54-0500 Body mass index (BMI) [Ratio] 27.17 kg/m2 Za Hernández MD Work Phone: [facility] 10-22-2023 11:54-0500 Body weight 83.46 kg Za Hernández MD Work Phone: [facility] 10-22-2023 11:54-0500 Diastolic blood pressure 72 mm[Hg] Za Hernández MD Work Phone: [facility] 10-22-2023 11:54-0500 Heart rate 56 /min Za Hernández MD Work Phone: [facility] 10-22-2023 11:54-0500 Systolic blood pressure 124 mm[Hg] Za Hernández MD Work Phone: [facility] 08-28-2023 12:20-0500 Diastolic blood pressure 78 mm[Hg] Ryan Cobb MD Work Phone: [facility] 08-28-2023 12:20-0500 Heart rate 60 /min Ryan Cobb MD Work Phone: [facility] 08-28-2023 12:20-0500 Respiratory rate 14 /min Ryan Cobb MD Work Phone: [facility] 08-28-2023 12:20-0500 SaO2% (BldA) [Mass fraction] 98 % Ryan Cobb MD Work Phone: [facility] 08-28-2023 12:20-0500 Systolic blood pressure 137 mm[Hg] Ryan Cobb MD Work Phone: [facility] 08-22-2023 08:48-0500 Body height 175.3 cm Ryan Cobb MD Work Phone: [facility] 08-22-2023 08:48-0500 Body mass index (BMI) [Ratio] 25.84 kg/m2 Ryan Cobb MD Work Phone: [facility] 08-22-2023 08:48-0500 Body temperature 96.01 [degF] Ryan Cobb MD Work Phone: [facility] 08-22-2023 08:48-0500 Body weight 79.38 kg Ryan Cobb MD Work Phone: [facility] 08-22-2023 08:48-0500 Diastolic blood pressure 79 mm[Hg] Ryan Cobb MD Work Phone: [facility] 08-22-2023 08:48-0500 Heart rate 60 /min Ryan Cobb MD Work Phone: [facility] 08-22-2023 08:48-0500 Respiratory rate 16 /min Ryan Cobb MD Work Phone: [facility] 08-22-2023 08:48-0500 SaO2% (BldA) [Mass fraction] 96 % Ryan Cobb MD Work Phone: [facility] 08-22-2023 08:48-0500 Systolic blood pressure 151 mm[Hg] Ryan oCbb MD Work Phone: [facility] 07-09-2023 11:04-0400 Diastolic blood pressure 78 mm[Hg] Trungemily FERGUSON [facility] 07-09-2023 11:04-0400 Heart rate 68 /min Trungemily FERGUSON [facility] 07-09-2023 11:04-0400 Respiratory rate 16 /min Trungemily FERGUSON [facility] 07-09-2023 11:04-0400 Systolic blood pressure 132 mm[Hg] Trungemily FERGUSON [facility] 06-11-2023 11:27-0400 Diastolic blood pressure 60 mm[Hg] Sam Cooney Work Phone: [facility] DO Work Phone: 06-11-2023 11:27-0400 Systolic blood pressure 118 mm[Hg] Sam Cooney Work Phone: [facility] DO Work Phone: 06-11-2023 10:51-0400 Body height 175.26 cm Sam Cooney Work Phone: [facility] DO Work Phone: 06-11-2023 10:51-0400 Body mass index (BMI) [Ratio] 26.29 kg/m2 Sam Cooney Work Phone: [facility] DO Work Phone: 06-11-2023 10:51-0400 Body surface area Derived from formula 1.97 m2 Sam Cooney Work Phone: [facility] DO Work Phone: 06-11-2023 10:51-0400 Body weight 80.74 kg Sam Cooney Work Phone: [facility] DO Work Phone: 06-11-2023 10:51-0400 Diastolic blood pressure 76 mm[Hg] Sam Cooney Work Phone: [facility] DO Work Phone: 06-11-2023 10:51-0400 Heart rate 66 /min Sam Cooney Work Phone: [facility] DO Work Phone: 06-11-2023 10:51-0400 Systolic blood pressure 128 mm[Hg] Sam Cooney Work Phone: [facility] DO Work Phone: 04-03-2023 09:05-0400 Blood Pressure Location CHARLOTTE ESQUIVELRY [facility] 04-03-2023 09:05-0400 Diastolic blood pressure 56 mm[Hg] CHARLOTTE RITESH [facility] 04-03-2023 09:05-0400 Heart rate 58 /min CHARLOTTE RITESH [facility] 04-03-2023 09:05-0400 Respiratory rate 16 /min CHARLOTTE RITESH [facility] 04-03-2023 09:05-0400 Systolic blood pressure 96 mm[Hg] CHARLOTTE BAKER [facility] 02-26-2023 12:14-0400 Diastolic blood pressure 40 mm[Hg] At[place]isonkaterin Cooney Work Phone: [facility] DO Work Phone: 02-26-2023 12:14-0400 Systolic blood pressure 82 mm[Hg] [place] E Lisbon Work Phone: [facility] DO Work Phone: 02-26-2023 12:14-0400 50 1 Samkaterin Cooney Work Phone: [facility] DO Work Phone: Comment on above: [facility] 02-26-2023 11:37-0400 Body height 175.26 cm Sam Meneses [place] Work Phone: [facility] DO Work Phone: 02-26-2023 11:37-0400 Body mass index (BMI) [Ratio] 25.93 kg/m2 Sam Meneses [place] Work Phone: [facility] DO Work Phone: 02-26-2023 11:37-0400 Body surface area Derived from formula 1.95 m2 [place] Gideon [place] Work Phone: [facility] DO Work Phone: 02-26-2023 11:37-0400 Body weight 79.65 kg Sam Cooney Work Phone: [facility] DO Work Phone: 02-26-2023 11:37-0400 Diastolic blood pressure 52 mm[Hg] Sam Meneses [place] Work Phone: [facility] DO Work Phone: 02-26-2023 11:37-0400 Heart rate 56 /min Sam Meneses [place] Work Phone: [facility] DO Work Phone: 02-26-2023 11:37-0400 Systolic blood pressure 98 mm[Hg] Sam Meneses [place] Work Phone: [facility] DO Work Phone: 01-23-2023 14:12-0400 Blood Pressure Location CHARLOTTE RITESH [facility] 01-23-2023 14:12-0400 Diastolic blood pressure 76 mm[Hg] CHARLOTTE RITESH [facility] 01-23-2023 14:12-0400 Heart rate 78 /min CHARLOTTE RITESH [facility] 01-23-2023 14:12-0400 Respiratory rate 16 /min CHARLOTTE RITESH [facility] 01-23-2023 14:12-0400 Systolic blood pressure 130 mm[Hg] CHARLOTTE RITESH [facility] 01-01-2023 11:45-0400 Blood Pressure Location Trung FERGUSON [facility] 01-01-2023 11:45-0400 Diastolic blood pressure 88 mm[Hg] Trung FERGUSON [facility] 01-01-2023 11:45-0400 Heart rate 67 /min Trung FERGUSON [facility] 01-01-2023 11:45-0400 Respiratory rate 16 /min Trungemily FERGUSON [facility] 01-01-2023 11:45-0400 Systolic blood pressure 135 mm[Hg] Trung FERGUSON [facility] 11-03-2022 13:02-0500 Blood Pressure Location Trung FERGUSON [facility] 11-03-2022 13:02-0500 Diastolic blood pressure 74 mm[Hg] Trung FERGUSON [facility] 11-03-2022 13:02-0500 Heart rate 68 /min Trung FERGUSON [facility] 11-03-2022 13:02-0500 Respiratory rate 16 /min Trung FERGUSON [facility] 11-03-2022 13:02-0500 Systolic blood pressure 128 mm[Hg] Trung FERGUSON [facility] 10-09-2022 13:22-0500 Diastolic blood pressure 74 mm[Hg] Sam Cooney Work Phone: [facility] DO Work Phone: 10-09-2022 13:22-0500 Systolic blood pressure 136 mm[Hg] Sam Meneses [place] Work Phone: [facility] DO Work Phone: 10-09-2022 13:05-0500 Body height 175.26 cm Sma Cooney Work Phone: [facility] DO Work Phone: 10-09-2022 13:05-0500 Body mass index (BMI) [Ratio] 26.58 kg/m2 Sam Cooney Work Phone: [facility] DO Work Phone: 10-09-2022 13:05-0500 Body surface area Derived from formula 1.98 m2 Sam Cooney Work Phone: [facility] DO Work Phone: 10-09-2022 13:05-0500 Body weight 81.65 kg Sam Cooney Work Phone: [facility] DO Work Phone: 10-09-2022 13:05-0500 Diastolic blood pressure 72 mm[Hg] Sam Cooney Work Phone: [facility] DO Work Phone: 10-09-2022 13:05-0500 Heart rate 84 /min Sam Cooney Work Phone: [facility] DO Work Phone: 10-09-2022 13:05-0500 Systolic blood pressure 142 mm[Hg] Sam Cooney Work Phone: [facility] DO Work Phone: 10-02-2022 15:48-0500 Body height 175.26 cm Sam Cooney Work Phone: [facility] DO Work Phone: 10-02-2022 15:48-0500 Body mass index (BMI) [Ratio] 26.43 kg/m2 Sam Cooney Work Phone: [facility] DO Work Phone: 10-02-2022 15:48-0500 Body surface area Derived from formula 1.97 m2 Sam Cooney Work Phone: [facility] DO Work Phone: 10-02-2022 15:48-0500 Body weight 81.19 kg At[place] E [place] Work Phone: [facility] DO Work Phone: 10-02-2022 15:48-0500 Diastolic blood pressure 82 mm[Hg] [place] E Lisbon Work Phone: [facility] DO Work Phone: 10-02-2022 15:48-0500 Heart rate 68 /min [place] E [place] Work Phone: [facility] DO Work Phone: 10-02-2022 15:48-0500 Systolic blood pressure 134 mm[Hg] Sam E [place] Work Phone: [facility] DO Work Phone: 10-02-2022 11:32-0500 Blood Pressure Location Trung FERGUSON [facility] 10-02-2022 11:32-0500 Diastolic blood pressure 75 mm[Hg] Trung FERGUSON [facility] 10-02-2022 11:32-0500 Heart rate 70 /min Trung FERGUSON [facility] 10-02-2022 11:32-0500 Respiratory rate 16 /min Trung FERGUSON [facility] 10-02-2022 11:32-0500 Systolic blood pressure 134 mm[Hg] Trung FERGUSON [facility] 09-11-2022 13:07-0500 Diastolic blood pressure 84 mm[Hg] [place] E [place] Work Phone: [facility] DO Work Phone: 09-11-2022 13:07-0500 Diastolic blood pressure 92 mm[Hg] Sam Gideon [place] Work Phone: [facility] Work Phone: 09-11-2022 13:07-0500 Systolic blood pressure 144 mm[Hg] Sam Meneses [place] Work Phone: [facility] DO Work Phone: 09-11-2022 13:07-0500 Systolic blood pressure 148 mm[Hg] Sam Meneses [place] Work Phone: [facility] DO Work Phone: 09-11-2022 13:00-0500 Body height 175.26 cm Sam Meneses [place] Work Phone: [facility] DO Work Phone: 09-11-2022 13:00-0500 Body mass index (BMI) [Ratio] 25.99 kg/m2 Sam Meneses [place] Work Phone: [facility] DO Work Phone: 09-11-2022 13:00-0500 Body surface area Derived from formula 1.96 m2 Sam Meneses [place] Work Phone: [facility] DO Work Phone: 09-11-2022 13:00-0500 Body weight 79.83 kg Sam Meneses [place] Work Phone: [facility] DO Work Phone: 09-11-2022 13:00-0500 Heart rate 62 /min Sam Meneses [place] Work Phone: [facility] DO Work Phone: 08-28-2022 13:16-0500 Body height 175.26 cm Sam Meneses [place] Work Phone: [facility] DO Work Phone: 08-28-2022 13:16-0500 Body mass index (BMI) [Ratio] 25.84 kg/m2 Sam Meneses [place] Work Phone: [facility] DO Work Phone: 08-28-2022 13:16-0500 Body surface area Derived from formula 1.95 m2 Sam Meneses [place] Work Phone: [facility] DO Work Phone: 08-28-2022 13:16-0500 Body weight 79.38 kg Sam Meneses [place] Work Phone: [facility] DO Work Phone: 08-28-2022 13:16-0500 Diastolic blood pressure 94 mm[Hg] Sma Meneses [place] Work Phone: [facility] DO Work Phone: 08-28-2022 13:16-0500 Heart rate 88 /min Sam Meneses [place] Work Phone: [facility] DO Work Phone: 08-28-2022 13:16-0500 Systolic blood pressure 152 mm[Hg] Sam Meneses [place] Work Phone: [facility] DO Work Phone: 06-15-2022 10:12-0400 Body height 175.26 cm Sam Meneses [place] Work Phone: [facility] DO Work Phone: 06-15-2022 10:12-0400 Body mass index (BMI) [Ratio] 24.81 kg/m2 Sam Meneses [place] Work Phone: [facility] DO Work Phone: 06-15-2022 10:12-0400 Body surface area Derived from formula 1.92 m2 Sam Meneses [place] Work Phone: [facility] DO Work Phone: 06-15-2022 10:12-0400 Body weight 76.2 kg Sam Meneses [place] Work Phone: [facility] DO Work Phone: 06-15-2022 10:12-0400 Diastolic blood pressure 82 mm[Hg] [place] Gideon Cooeny Work Phone: [facility] DO Work Phone: 06-15-2022 10:12-0400 Heart rate 64 /min Sam Cooney Work Phone: [facility] DO Work Phone: 06-15-2022 10:12-0400 Systolic blood pressure 160 mm[Hg] Sam Meneses [place] Work Phone: [facility] DO Work Phone: 06-15-2022 10:12-0400 4 1 Sam Meneses [place] Work Phone: [facility] DO Work Phone: Comment on above: PHQ-9 TS 04-24-2022 11:18-0400 Blood Pressure Location Trung FERGUSON [facility] 04-24-2022 11:18-0400 Diastolic blood pressure 86 mm[Hg] Trung FERGUSON [facility] 04-24-2022 11:18-0400 Heart rate 74 /min Trung FERGUSON [facility] 04-24-2022 11:18-0400 Respiratory rate 16 /min Trung FERGUSON [facility] 04-24-2022 11:18-0400 Systolic blood pressure 134 mm[Hg] Trung FERGUSON [facility] 01-23-2022 12:57-0400 Blood Pressure Location Trung FERGUSON [facility] 01-23-2022 12:57-0400 Diastolic blood pressure 87 mm[Hg] Trung FERGUSON [facility] 01-23-2022 12:57-0400 Heart rate 70 /min Trung FERGUSON [facility] 01-23-2022 12:57-0400 Respiratory rate 16 /min Trung FERGUSON [facility] 01-23-2022 12:57-0400 Systolic blood pressure 139 mm[Hg] Trung FERGUSON [facility] 08-31-2021 13:24-0500 Body height 175.26 cm Sam Cooney Work Phone: [facility] DO Work Phone: 08-31-2021 13:24-0500 Body mass index (BMI) [Ratio] 27.02 kg/m2 Sam Cooney Work Phone: [facility] DO Work Phone: 08-31-2021 13:24-0500 Body surface area Derived from formula 1.99 m2 Sam Cooney Work Phone: [facility] DO Work Phone: 08-31-2021 13:24-0500 Body weight 83.01 kg Sam Cooney Work Phone: [facility] DO Work Phone: 08-31-2021 13:24-0500 Diastolic blood pressure 88 mm[Hg] Sam Cooney Work Phone: [facility] DO Work Phone: 08-31-2021 13:24-0500 Heart rate 74 /min Sam Cooney Work Phone: [facility] DO Work Phone: 08-31-2021 13:24-0500 Systolic blood pressure 142 mm[Hg] Sam Cooney Work Phone: [facility] DO Work Phone: 08-03-2021 09:57-0500 Body height 175.26 cm Sam Cooney Work Phone: [facility] DO Work Phone: 08-03-2021 09:57-0500 Body mass index (BMI) [Ratio] 26.29 kg/m2 Sam Cooney Work Phone: [facility] DO Work Phone: 08-03-2021 09:57-0500 Body surface area Derived from formula 1.97 m2 Sam Cooney Work Phone: [facility] DO Work Phone: 08-03-2021 09:57-0500 Body weight 80.74 kg aSm Meneses Lisbon Work Phone: [facility] DO Work Phone: 08-03-2021 09:57-0500 Diastolic blood pressure 90 mm[Hg] Sam Meneses [place] Work Phone: [facility] DO Work Phone: 08-03-2021 09:57-0500 Heart rate 66 /min Sam Meneses [place] Work Phone: [facility] DO Work Phone: 08-03-2021 09:57-0500 Systolic blood pressure 170 mm[Hg] Sam Meneses [place] Work Phone: [facility] DO Work Phone: Encounters Encounter Date Encounter Type Care Provider Facility Start: 06-16-2024 ambulatory Trung Santizo ty:ALLEN Linn Start: 04-01-2024 Registered Recurring DO [facility] Co[facility] [place] [facility] Work Phone: Start: 04-01-2024 End: 04-01-2024 ambulatory DO Sam Cooney Work Phone: [facility] Work Phone: Start: 04-01-2024 End: 04-01-2024 Patient encounter procedure DO Sam [place] [facility] [place] [facility] Work Phone: Start: 03-28-2024 ambulatory Sam Lisbon Facility :[facility] Start: 03-20-2024 Registered Recurring DO Sam Lisbon [facility] [place] [facility] Work Phone: Start: 03-20-2024 End: 03-20-2024 ambulatory DO Sam Cooney Work Phone: [facility] Work Phone: Start: 03-20-2024 End: 03-20-2024 Patient encounter procedure DO Sam Cooney Work Phone: [facility] Work Phone: Start: 03-17-2024 End: 03-17-2024 Patient encounter procedure DO Sam Cooney Work Phone: [facility]-Pacemaker Check Start: 03-17-2024 End: 03-17-2024 ambulatory DO Sam Cooney Work Phone: [facility] Work Phone: Start: 03-14-2024 Registered Recurring DO Sam Cooney Work Phone: [facility] Acute Work Phone: Start: 03-05-2024 End: 03-09-2024 Evaluation and management of inpatient DO Sam Cooney Work Phone: [facility] Work Phone: Start: 03-05-2024 End: 03-05-2024 Admission to same day surgery center DO Sam Cooney Work Phone: [facility]-CT Scan [facility] [place] Work Phone: Start: 03-05-2024 End: 03-05-2024 ambulatory DO Sam Cooney Work Phone: [facility] Work Phone: Start: 03-03-2024 Registered Recurring DO Sam Cooney Work Phone: [facility] Acute Work Phone: Start: 02-21-2024 End: 02-21-2024 ambulatory DO Sam Cooney Work Phone: [facility] Work Phone: Start: 02-21-2024 End: 02-21-2024 Patient encounter procedure DO Sam Cooney [facility] Work Phone: Start: 02-21-2024 Registered Recurring DO Sam Cooney [facility] Work Phone: Start: 02-11-2024 End: 02-11-2024 ambulatory GRACE VAZQUEZ Not Available Start: 01-15-2024 End: 01-15-2024 ambulatory ROXANNE Casie [facility] Start: 12-28-2023 ambulatory SAM COONEY [facility] Start: 12-28-2023 End: 12-29-2023 ambulatory [facility] Start: 12-28-2023 End: 12-28-2023 Subsequent hospital visit by physician Fatemeh [address] [facility] Comment on above: Atrial fibrillation, unspecified type (CMS/HCC) Start: 12-03-2023 End: 12-04-2023 ambulatory Trung FERGUSON Facility:[facility] Start: 12-03-2023 End: 12-03-2023 Patient encounter procedure Trung FERGUSON [facility] Start: 11-20-2023 ambulatory GUNNAR SHAFFER DO Fa cility:[id number] Start: 11-07-2023 End: 11-07-2023 ambulatory CAMILA ZEPEDA MD Facility:[id number] Start: 11-06-2023 Chart abstracting Kylee Arreguin DPM Work Phone: [facility] Start: 10-22-2023 End: 10-22-2023 Office outpatient visit 25 minutes Za Hernández MD Work Phone: [facility] Comment on above: Unspecified mood (af fective) disorder (CMS/HCC) (Primary Dx); Paroxysmal atrial fibrillation (CMS/HCC); Former smoker; Encounter for pre-operative cardiovascular clearance; Presence of Watchman left atrial appendage closure device; Paroxysmal atrial fibrillation with RVR (CMS/HCC); Mixed hyperlipidemia; Primary hypertension; Pain in joint of left shoulder Start: 10-22-2023 End: 10-22-2023 Patient encounter status Za Hernández MD Work Phone: [facility] Work Phone: Start: 10-22-2023 End: 10-22-2023 ambulatory [facility] Start: 10-22-2023 End: 10-22-2023 Encounter for preprocedural cardiovascular examination [facility] Start: 09-10-2023 End: 09-10-2023 ambulatory DO Sam Cooney Work Phone: [facility] Work Phone: Start: 09-10-2023 End: 09-10-2023 Patient encounter procedure DO Sam Cooney Work Phone: [facility]Pacemaker Check Start: 08-28-2023 End: 08-28-2023 Subsequent hospital visit by physician Ryan Cobb MD Work Phone: [facility] Comment on above: Atrial fibrillation (CMS/HCC) (Primary Dx); Chronic atrial fibrillation, unspecified (CMS/HCC); Presence of Watchman left atrial appendage closure device Start: 08-24-2023 Evaluation and manag ement of inpatient RYAN Ocampo [facility] Start: 08-22-2023 End: 08-22-2023 ambulatory RYAN COBB [facility] Start: 08-22-2023 End: 08-22-2023 Office outpatient new 45 minutes Ryan Cobb MD Work Phone: [facility] Comment on above: Paroxysmal atrial fi brillation (CMS/HCC) (Primary Dx) Start: 08-13-2023 End: 08-13-2023 ambulatory KYLEE ARREGUIN Not Available Start: 08-09-2023 End: 08-09-2023 Patient encounter procedure DO Sam Cooney Work Phone: [facility]Pacemaker Check Start: 08-09-2023 End: 08-09-2023 ambulatory DO Sam Cooney Work Phone: [facility] Work Phone: Start: 07-31-2023 End: 08-01-2023 ambulatory PURNIMA DAVIDSON JR Facility:[facility] Start: 07-31-2023 Encounter for other preprocedural examination PURNIMA DAVIDSON JR [facility] Start: 07-31-2023 End: 08-01-2023 ambulatory SHERLEY CHAVEZ Not Available Start: 07-09-2023 End: 07-10-2023 ambulatory Trung FERGUSON Facility:[facility] Start: 07-09-2023 End: 07-09-2023 ambulatory Sam Cooney Facility:[facility] Start: 07-09-2023 End: 07-09-2023 Patient encounter procedure Trung FERGUSON [facility] Start: 06-11-2023 Office outpatient vi sit 25 minutes Sam Cooney Work Phone: [facility] DO Work Phone: Start: 06-11-2023 ambulatory ZA HERNÁNDEZ Facility:1 [id number] Start: 06-07-[address] Sma Cooney Facility:[id number] Start: 06-07-2023 End: 06-07-2023 Patient encounter procedure DO Sam Cooney Work Phone: [facility]Pacemaker Check Start: 06-07-2023 End: 06-07-2023 ambulatory DO Sam Cooney Work Phone: [facility] Work Phone: Start: 05-08-[address] Sam Cooney Facility:[id number] Start: 05-07-2023 End: 05-07-2023 Patient encounter procedure DO Sam Cooney Work Phone: [facility]Pacemaker Check Start: 05-07-2023 End: 05-07-2023 ambulatory DO Sam Lisbon Work Phone: [facility] Work Phone: Start: 04-03-2023 End: 04-04-2023 ambulatory CHARLOTTE ESQUIVELRY Facility:[facility] Start: 04-03-2023 End: 04-03-2023 Patient encounter procedure CHARLOTTE BAKER [facility] [place] Start: 02-26-2023 ambulatory Ms. Loulou Arreguin Facility: Start: 02-26-2023 Office outpatient vi sit 25 minutes Sam Cooney Work Phone: [facility] DO Work Phone: Start: 02-26-2023 Patient encounter procedure Sam Cooney Work Phone: [facility] DO Work Phone: Start: 01-23-2023 End: 01-24-2023 ambulatory DO Sam Cooney Work Phone: [facility] Work Phone: Start: 01-23-2023 End: 01-23-2023 Patient encounter procedure CHARLOTTE BAKER [facility] [place] Start: 01-22-2023 End: 01-22-2023 Patient encounter procedure DO Sam Lisbon Work Phone: [facility]Pacemaker Check Start: 01-22-2023 End: 01-22-2023 ambulatory DO Sam Lisbon Work Phone: [facility] Work Phone: Start: 01-01-2023 End: 01-02-2023 ambulatory Trung FERGUSON Facility: [place] Start: 01-01-2023 End: 01-01-2023 Patient encounter procedure [facility] Start: 12-08-[address] Sam Cooney Facility:[id number] Start: 12-08-2022 End: 12-08-2022 ambulatory DO Sam Cooney Work Phone: [facility] Work Phone: Start: 12-08-2022 End: 12-08-2022 Patient encounter procedure DO Sam Eros Work Phone: [facility]-Pacemaker Check Start: 11-17-2022 Patient encounter procedure Sam Cooney Work Phone: [facility] DO Work Phone: Start: 11-06-2022 End: 11-06-2022 Patient encounter procedure Trung [facility]GUSON [facility] Start: 11-03-2022 End: 01-10-[address] SAM COONEY Facility:H1 Start: 11-03-2022 End: 11-03-2022 Patient encounter procedure Trung FERGUSON [facility] Start: 10-17-2022 End: 10-17-2022 Lab Drop off CHARLOTTE BAKER [facility] Start: 10-17-2022 End: 10-17-2022 Patient encounter procedure CHARL[facility]TE BAKER [facility] Start: 10-09-2022 ambulatory Ms. Loulou Arreguin Facility: Start: 10-09-2022 FU, Provider: Loulou Myles, Status: Pen, Time: 12:30 PM [place]ch[place] E Lisbon Work Phone: [facility] DO Work Phone: Start: 10-09-2022 Office outpatient vi sit 15 minutes Sam E Lisbon Work Phone: [facility] DO Work Phone: Start: 10-09-2022 Patient encounter procedure Sam E Lisbon Work Phone: [facility] DO Work Phone: Start: 10-02-2022 ambulatory ZA HERNÁNDEZ Facility:1 [id number] Start: 10-02-2022 Office outpatient vi sit 25 minutes [place] E Lisbon Work Phone: [facility] DO Work Phone: Start: 10-02-2022 End: 10-02-2022 Patient encounter procedure Trung FERGUSON [facility] Start: 09-19-2022 Rx Renewal [place] E Brist ol Work Phone: [facility] DO Work Phone: Start: 09-11-2022 Office outpatient vi sit 10 minutes [place] E Lisbon Work Phone: [facility] DO Work Phone: Start: 09-11-2022 ambulatory ZACasie HERNÁNDEZ Facility:1 [id number] Start: 09-04-2022 End: 09-04-2022 Patient encounter procedure Trung FERGUSON [facility] Start: 09-02-2022 Encounter for preprocedural laboratory examination DR TRUNG FERGUSON . [facility] Start: 08-31-2022 End: 09-01-[address] TRUNG FERGUSON . Facility:H1 Start: 08-29-2022 End: 08-30-[address] TRUNG FERGUSON . Facility:H1 Start: 08-29-2022 End: 08-30-2022 Encounter for preprocedural laboratory examination DR TRUNG FERGUSON . Facility:H1 Start: 08-28-2022 Office outpatient vi sit 25 minutes Sam Cooney Work Phone: [facility] DO Work Phone: Start: 08-25-2022 End: 08-26-[address] SAM COONEY Facility:H1 Start: 08-22-2022 End: 08-23-[address] TRUNG FERGUSON . Facility:H1 Start: 08-14-2022 Telephone encounter Sam cerna Work Phone: [facility] DO Work Phone: Start: 07-20-[address] TRUNG FERGUSON . Fac ility:H1 Start: 07-14-2022 End: 07-15-[address] TRUNG FERGUSON . Facility:H1 Start: 06-30-2022 Encounter for preprocedural cardiovascular examination DR TRUNG FERGUSON . [facility] Start: 06-30-2022 Encounter for preprocedural laboratory examination DR TRUNG FERGUSON . [facility] Start: 06-30-2022 End: 07-01-[address] TRUNG FERGUSON . Facility:H1 Start: 06-28-2022 End: 06-29-[address] TRUNG FERGUSON . Facility:H1 Start: 06-28-2022 End: 06-29-2022 Encounter for preprocedural cardiovascular examination DR TRUNG FERGUSON . Facility:H1 Start: 06-15-2022 Office outpatient vi sit 15 minutes Sam Cooney Work Phone: [facility] DO Work Phone: Start: 06-15-2022 Patient encounter procedure Sam Cooney Work Phone: [facility] DO Work Phone: Start: 04-24-2022 End: 05-10-2022 Pre-admission assessment Trung R FERGUSON [facility] Start: 04-24-2022 End: 04-24-2022 Patient encounter procedure Trung Santosh [facility]USON [facility] Start: 04-12-2022 Telephone encounter Sam Ramirez ristol Work Phone: [facility] DO Work Phone: Start: 04-08-2022 End: 04-08-[address] CONCHITA ARREGUIN Facility:H1 Start: 02-17-2022 End: 04-05-[address] SAM COONEY Facility:H1 Start: 01-23-2022 End: 01-23-2022 Patient encounter procedure Trung Santosh FERGUSON [facility] [place] Start: 08-31-2021 Office outpatient vi sit 15 minutes Sam Cooney Work Phone: [facility] DO Work Phone: Start: 02-07-2021 End: 02-07-2021 Patient encounter procedure Sam Cooney Work Phone: -[facility] [place] Start: 01-07-2021 End: 01-07-2021 Patient encounter procedure Sam Cooney Work Phone: -Pacemaker Check Start: 10-13-2020 End: 10-14-2020 Patient encounter procedure ISRAR UL SANTOS [facility] Start: 10-13-2020 End: 10-13-2020 Subsequent hospital visit by physician Sam Cooney [facility] Start: 10-08-2020 End: 10-08-2020 Patient encounter procedure Sam Cooney -Pacemaker Check Start: 2020 End: 2020 Patient encounter procedure Sam Cooney -[facility] [place] Start: 09-15-2020 End: 09-15-2020 Patient encounter procedure Sam Cooney -CT [address] Start: 07-07-2020 End: 07-07-2020 Patient encounter procedure Sam Cooney -Pacemaker Check Start: 02-04-2020 End: 02-07-2020 Patient encounter procedure ISRAR UL SANTOS [facility] Start: 02-04-2020 End: 02-06-2020 Subsequent hospital visit by physician [facility] Rm 222 [facility] CT Scan Comment on above: 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 Y Number of units to transfuse now? 2 Result Comment: PERF ORMED BY: [facility] [address] [place] [address] PATHOLOGIST BILINGUAL OPERATOR OTTO HARLEY M.D. Start: 03-05-2024 Stool Occult [...] - Serum or Plasma ZA HERNÁNDEZ Start: 12-05-2023 Echo transthorc r-t 2d w/wo m-mode rec f-up/lmtd Lucas Pearce USABILITY ENGINEER-DISTRIBUTION AGENT Work Phone: Start: 08-28-2023 Ecg routine ecg w/le ast 12 lds trcg only w/o i&r Lucas Pearce USABILITY ENGINEER-DISTRIBUTION AGENT Work Phone: Start: 08-22-2023 Creatinine [Mass/vol ume] [...] Trung MARTY Start: 01-24-2022 Cystoscopy Trung SALVATORE PHAM Start: 10-13-2020 Assay of free thyroxine Israr Ul Santos Work Phone: Start: 10-13-2020 Assay of thyroid stimulating hormone tsh Israr Ul Santos Work Phone: Start: 10-13-2020 VITAMIN B12 & FOLATE Is rar Ul Santos Work Phone: Start: 09-15-2020 CT head/brain wo con Re agan Eros Start: 02-04-2020 Ct head/brain w/o co [...] EVAL AND TREAT LESTER CHIRRI Start: 12-22-2019 ROTARY SHEAR CUTTER EVAL AND TREAT GRAYSON L CHIRRI Start: [...] DTaP/Tdap/Td Vaccines (2 - Td or Tdap) [facility] Start: 10-13-2024 End: 10-13-2024 Patient encounter procedure 10/13/2024 10:30 AM EST Office Visit [facility] [address] [facility] [address] [place] [address] Za Hernández MD [address] [place] [address] [address] [place] [address] [facility] Start: 07-31-2024 Thyroid stimulating hormone measurement TSH Level [facility] Start: 04-21-2024 End: 04-21-2024 Patient encounter procedure 04/21/2024 10:30 AM EDT Office Visit [facility] [address] [facility] [address] [place] [address] Loulou Arreguin, USABILITY ENGINEER-DISTRIBUTION AGENT [address] [facility], [address] [place] [address] [facility] Start: 04-01-2024 End: 04-01-2024 [facility] Start: 04-01-2024 [facility] Start: 03-24-2024 End: 03-25-2024 [facility] Start: 03-24-2024 [facility] Start: 03-21-2024 [facility] Start: 03-20-2024 Patient referral [facility] Work Phone: Start: 03-20-2024 Comprehensive metabo lic 2000 panel - Serum or Plasma [facility] Start: 03-20-2024 [facility] Start: 03-20-2024 [facility] Start: 03-20-2024 [facility] Start: 03-15-2024 [facility] Start: 03-14-2024 End: 03-14-2024 [facility] Start: 03-13-2024 End: 03-13-2024 [facility] Start: 03-12-2024 [facility] Start: 03-11-2024 [facility] Start: 03-10-2024 [facility] Start: 03-09-2024 End: 03-09-2024 [facility] Start: 03-08-2024 [facility] Start: 03-07-2024 End: 03-07-2024 [facility] Start: 03-06-2024 End: 03-07-2024 [facility] Start: 03-05-2024 Referral to occupational therapist [facility] Start: 03-05-2024 Physical therapy procedure [facility] Start: 03-05-2024 Hospital admission [facility] Start: 03-05-2024 Referral to oncologist [facility] Start: 03-05-2024 Extraction of Iliac Bone Marrow, Percutaneous Approach, Diagnostic Extraction of Iliac Bone Marrow, Percutaneous Approach, Diagnostic [facility] Start: 03-05-2024 End: 03-06-2024 [facility] Start: 03-03-2024 [facility] Start: 11-20-2023 End: 11-20-2023 Patient encounter procedure 11/20/2023 7:00 AM EST Procedure Visit [place] [address] [place] [address] [facility] Start: 11-06-2023 End: 11-06-2023 Patient encounter procedure 11/06/2023 11:30 AM EST Procedure Visit [facility] [address] [place] [address] Kylee Arreguin DPM [address] [place] [address] [facility] Start: 10-22-2023 End: 10-22-2024 Comprehensive metabolic 2000 panel - Serum or Plasma Comprehensive Metabolic Panel Lab Routine Paroxysmal atrial fibrillation (CMS/HCC) Expected: 10/22/2023 (Approximate), Expires: 10/22/2024 [facility] Service Area Work Phone: Comment on above: Expected: 10/22/2023 (Approximate), Expires: 10/22/2024 Start: 10-22-2023 End: 10-22-2024 Lipid 1996 panel - Serum or Plasma Lipid Panel Lab Routine Paroxysmal atrial fibrillation (CMS/HCC) Unspecified mood (affective) disorder (CMS/HCC) Former smoker Encounter for pre-operative cardiovascular clearance Mixed hyperlipidemia Expected: 10/22/2023 (Approximate), Expires: 10/22/2024 [facility] Work Phone: Comment on above: Expected: 10/22/2023 (Approximate), Expires: 10/22/2024 Start: 09-20-2023 End: 09-20-2023 Patient encounter procedure 09/20/2023 10:30 AM EST Office Visit [facility] [address] [facility] [address] [place] [address] Za Hernández MD [address] [facility] [address] [place] [address] [facility] Start: 08-28-2023 End: 08-28-2023 Admission to same day surgery center 08/28/2023 11:30 AM EST - 08/28/2023 1:30 PM EST Surgery [facility] [address] [place] [id number] [place] [address] [place] [address] Left Atrial Appendage Closure [50107 (CPT )] [facility] Comment on above: Left Atrial Appendag e Closure [34749 (CPT )] Start: 08-28-2023 Subsequent hospital visit by physician 08/28/2023 11:30 AM EST Hospital Encounter [facility] [address] [place] [address] [place] [address] [place] [address] Atrial fibrillation (CMS/HCC) [facility] Comment on above: Atrial fibrillation (CMS/HCC) Start: 08-27-2023 End: 08-27-2023 Patient encounter procedure 08/27/2023 9:30 AM EST Office Visit [facility] [address] [facility] [address] [place] [address] Za Hernández MD [address] [place] [address] [address] [place] [address] [facility] Start: 06-11-2023 FUV, Provider: Za Hernández, Status: Pen, Time: 10:45 AM FUV, Provider: Za Hernández, Status: Pen, Time: 10:45 AM [facility] 250 DO Work Phone: Start: 05-25-2023 COVID-19 Vaccine ( season) COVID-19 Vaccine ( season) [facility] Start: 05-25-2023 Influenza vaccination Influenza Vacc ine (#1) [facility] Start: 02-26-2023 FUV, Provider: Za Hernández, Status: Pen, Time: 11:15 AM FUV, Provider: Za Hernández, Status: Pen, Time: 11:15 AM [facility] 250 DO Work Phone: Start: 10-09-2022 FUV, Provider: Loulou Myles, Status: Pen, Time: 12:30 PM FUV, Provider: Loulou Myles, Status: Pen, Time: 12:30 PM [facility] DO Work Phone: Start: 10-02-2022 FUV, Provider: Za Hernández, Status: Pen, Time: 3:15 PM FUV, Provider: Za Hernández, Status: Pen, Time: 3:15 PM [facility] DO Work Phone: Start: 09-21-2022 FUV, Provider: Za Hernández, Status: Pen, Time: 9:45 AM FUV, Provider: Za Hernández, Status: Pen, Time: 9:45 AM [facility] DO Work Phone: Start: 09-11-2022 NURSEVST, Provider: JACQUELINE GONZALEZ PERSONAL FITNESS TRAINER 1,[id number], Status: Pen, Time: 1:00 PM NURSEVST, Provider: JACQUELINE GONZALEZ PERSONAL FITNESS TRAINER 1,[id number], Status: Pen, Time: 1:00 PM [facility] DO Work Phone: Start: 08-28-2022 FUV, Provider: Za Hernández, Status: Pen, Time: 12:45 PM FUV, Provider: Za Hernández, Status: Pen, Time: 12:[address] [facility] DO Work Phone: Start: 08-10-2022 BPCHECK, Provider: Lashon GONZALEZ PERSONAL FITNESS TRAINER 1,[id number], Status: Pen, Time: 10:00 AM BPCHECK, Provider: JACQUELINE GONZALEZ PERSONAL FITNESS TRAINER 1,[id number], Status: Pen, Time: 10:00 AM [facility] DO Work Phone: Start: 08-01-2022 FUV, Provider: Erick Wise, Status: Pen, Time: 9:00 AM FUV, Provider: Erick Wise, Status: Pen, Time: 9:00 AM [facility] DO Work Phone: Start: 06-15-2022 FUV, Provider: Za Hernández, Status: Pen, Time: 9:45 AM FUV, Provider: Za Hernández, Status: Pen, Time: 9:45 AM [facility] DO Work Phone: Start: 10-03-2021 FUV, Provider: Loulou Myles, Status: Pen, Time: 10:00 AM FUV, Provider: Loulou Myles, Status: Pen, Time: 10:[address] [facility] DO Work Phone: Start: 10-03-2021 STRESS NUC, Provider : KAYODE HHVI NUCLEAR 01,[id number], Status: Pen, Time: 8:00 AM STRESS NUC, Provider: KAYODE HHVI NUCLEAR 01,[id number], Status: Pen, Time: 8:00 AM [facility] DO Work Phone: Start: 04-13-2021 End: 04-13-2021 Virtual Visit 04/13/2021 Virtual Visit Neurology Shalom Shelton MD [address] [address] [phone] [facility] Start: 01-24-2021 COVID-19 Vaccine (2 - Booster for Christina series) COVID-19 Vaccine (2 - Booster for Christina series) [facility] Start: 12-20-2020 Creatinine measurement Creatinine mo nitoring [place], [place] Start: 12-20-2020 HbA1c (Bld) [Mass fraction] A1C test (Diabetic or Prediabetic) [place] Start: 12-20-2020 Lipid panel Lipid screen [place], [place] Start: 12-20-2020 Potassium monitoring Potassium monit oring [place] Start: 08-11-2020 End: 08-11-2020 Office Visit 08/11/2020 Office Visit Neurology Shalom Shelton MD [address] [facility] [address] [place] [address] [phone] [facility] Start: 05-25-2020 Influenza vaccination [place] Start: 12-22-2019 Annual Wellness Visi t (AWV) Annual Wellness Visit (AWV) [place] Start: 12-02-2014 Zoster Vaccines (2 o f 3) Zoster Vaccines (2 of 3) [facility] Start: 2012 Abdominal aortic aneurysm screening Abdominal Aortic Aneurysm (AAA) Screening [facility] Start: 2012 Pneumococcal 65+ yea rs Vaccine (1 of 1 - PPSV23) Pneumococcal 65+ years Vaccine (1 of 1 - PPSV23) [place] Start: 1997 Screening for malign ant neoplasm of colon Colon cancer screen colonoscopy [place], [place] Start: 1997 Shingles Vaccine (1 of 2) Shingles Vaccine (1 of 2) [place] Start: 1969 DTaP/Tdap/Td Vaccine s (1 - Tdap) DTaP/Tdap/Td Vaccines (1 - Tdap) [facility] Start: 1966 DTaP/Tdap/Td vaccine (1 - Tdap) DTaP/Tdap/Td vaccine (1 - Tdap) [place] Start: 1965 Diabetes mellitus screening Diabetes Screening [facility] Start: 1965 Hepatitis C screening Hepatitis C [facility] Start: 1947 Abdominal aortic aneurysm screening AAA screen [place], [place] Start: 1947 Hepatitis C screening Hepatitis C [facility] [place] Start: 1947 Lipid panel Lipid Panel [facility] Start: 1945 Medicare Annual Wellness Visit Medicare Annual Wellness Visit (AWV) [facility] Start: 1945 Screening for malign ant neoplasm of colon [facility] Albumin/Globulin ratio [facility] Angiotensin converti ng enzyme [Enzymatic activity/volume] in Serum or Plasma [facility] Anion gap measurement [facility] End: 08-28-2023 Basic metabolic 2000 panel - Serum or Plasma Basic metabolic panel Lab STAT STAT (Lab) for 1 Occurrences starting 08/28/2023 until 08/28/2023 [facility] Service Area Work Phone: Comment on above: STAT (Lab) for 1 Occ urrences starting 08/28/2023 until 08/28/2023 End: 08-31-2023 Basic metabolic 2000 panel - Serum or Plasma Basic Metabolic Panel Lab Routine Morning draw (Lab) for 3 Occurrences starting 08/29/2023 until 08/31/2023 [facility] Work Phone: Comment on above: Morning draw (Lab) f or 3 Occurrences starting 08/29/2023 until 08/31/2023 Basophils [#/volume] in Blood by Automated count [facility] Basophils/100 leukocytes in Blood by Automated count [facility] End: 08-28-2023 CBC W Auto Differential panel - Blood CBC and Auto Differential Lab STAT STAT (Lab) for 1 Occurrences starting 08/28/2023 until 08/28/2023 [facility] Work Phone: Comment on above: STAT (Lab) for 1 Occ urrences starting 08/28/2023 until 08/28/2023 End: 08-31-2023 CBC W Auto Differential panel - Blood CBC and Auto Differential Lab Routine Morning draw (Lab) for 3 Occurrences starting 08/29/2023 until 08/31/2023 [facility] Work Phone: Comment on above: Morning draw (Lab) f or 3 Occurrences starting 08/29/2023 until 08/31/2023 Comprehensive metabo lic 2000 panel - Serum or Plasma [facility] Comprehensive metabo lic 2000 panel - Serum or Plasma [facility] Comprehensive metabo lic 2000 panel - Serum or Plasma [facility] Comprehensive metabo lic 1999 panel - Serum or Plasma [facility] Copper measurement [facility] End: 08-28-2023 ECG 12 lead [facility] Work Phone: Comment on above: Once for 1 Occurrenc es starting 08/28/2023 until 08/28/2023 As needed until disc ontinued starting 08/28/2023 End: 08-30-2023 ECG 12 lead daily ECG 12 lead daily ECG Routine Daily for 3 Days starting 08/28/2023 until 08/30/2023, 1 completed [facility] Work Phone: Comment on above: Daily for 3 Days sta rting 08/28/2023 until 08/30/2023, 1 completed Eosinophils/100 leukocytes in Blood by Automated count [facility] Erythrocyte distribution width [Ratio] by Automated count [facility] Erythrocytes [#/volu me] in Blood [facility] Globulin [Mass/volum e] in Serum [facility] End: 08-31-2023 Glucose [Mass/volume] in Serum or Plasma POCT glucose Point of Care Testing - Docked Device Routine 4 times daily before meals and at bedtime for 3 Days starting 08/28/2023 until 08/31/2023 [facility] Work Phone: Comment on above: 4 times daily before meals and at bedtime for 3 Days starting 08/28/2023 until 08/31/2023 Hematocrit [Volume Fraction] of Blood [facility] Hematocrit [Volume Fraction] of Blood [facility] Hemoglobin [Mass/volume] in Blood [facility] Hemoglobin [Mass/volume] in Blood [facility] Hepatitis B core antibody measurement [facility] Hepatitis B virus surface Ab [Presence] in Serum [facility] End: 08-28-2023 Incentive spirometry Instruct Incentive spirometry Instruct Respiratory Care Routine Once for 1 Occurrences starting 08/28/2023 until 08/28/2023 [facility] Work Phone: Comment on above: Once for 1 Occurrenc es starting 08/28/2023 until 08/28/2023 Leukocytes [#/volume ] corrected for nucleated erythrocytes in Blood by Automated coun [facility] Leukocytes [#/volume ] in Blood [facility] Lymphocytes [#/volum e] in Blood by Automated count [facility] Lymphocytes/100 leukocytes in Blood by Automated count [facility] End: 08-28-2023 Magnesium [Mass/volume] in Serum or Plasma Magnesium Lab STAT STAT (Lab) for 1 Occurrences starting 08/28/2023 until 08/28/2023 [facility] Work Phone: Comment on above: STAT (Lab) for 1 Occ urrences starting 08/28/2023 until 08/28/2023 End: 08-31-2023 Magnesium [Mass/volume] in Serum or Plasma Magnesium Lab Routine Morning draw (Lab) for 3 Occurrences starting 08/29/2023 until 08/31/2023 [facility] Work Phone: Comment on above: Morning draw (Lab) f or 3 Occurrences starting 08/29/2023 until 08/31/2023 MCH [Entitic mass] b y Automated count [facility] MCHC [Mass/volume] b y Automated count [facility] MCV [Entitic volume] by Automated count [facility] Monocytes [#/volume] in Blood by Automated count [facility] Monocytes/100 leukocytes in Blood by Automated count [facility] Neutrophils [#/volum e] in Blood by Automated count [facility] Neutrophils/100 leukocytes in Blood by Automated count [facility] Nucleated erythrocyt es [Presence] in Blood by Automated count [facility] Patient referral [facility] Work Phone: Platelet mean volume [Entitic volume] in Blood by Automated count [facility] Platelets [#/volume] in Blood [facility] End: 08-28-2023 Prothrombin time (PT) Protime-INR Lab STAT STAT (Lab) for 1 Occurrences starting 08/28/2023 until 08/28/2023 [facility] Work Phone: Comment on above: STAT (Lab) for 1 Occ urrences starting 08/28/2023 until 08/28/2023 End: 08-31-2023 Prothrombin time (PT) Protime-INR Lab Routine Morning draw (Lab) for 3 Occurrences starting 08/29/2023 until 08/31/2023 [facility] Work Phone: Comment on above: Morning draw (Lab) f or 3 Occurrences starting 08/29/2023 until 08/31/2023 Rheumatoid factor [Units/volume] in Serum or Plasma [facility] End: 08-28-2023 Structural heart procedure Structural heart procedure Cardiac Cath Routine Atrial fibrillation (CMS/HCC) Once for 1 Occurrences starting 08/28/2023 until 08/28/2023 [facility] Service Area Work Phone: Comment on above: Once for 1 Occurrenc es starting 08/28/2023 until 08/28/2023 Structural heart procedure Structural heart procedure Cardiac Cath Routine Atrial fibrillation (CMS/HCC) 08/28/2023 12:31 PM [facility] Work Phone: End: 08-28-2023 [facility] Work Phone: Comment on above: Once for 1 Occurrenc es starting 08/28/2023 until 08/28/2023 [facility] Immunizations Immunization Date Immunization Notes Care Provider Fa [facility] 10-09-2022 Fluzone High-Dose Quadrivalent 0.7 ML Intramuscular Suspension Prefilled Syringe [place] E [place] Work Phone: [facility] 250 DO Work Phone: 10-09-2022 influenza virus vacc ine, unspecified formulation Trung [employer] [facility] 10-09-2021 Fluzone High-Dose Quadrivalent 0.7 ML Intramuscular Suspension Prefilled Syringe [place] E [place] Work Phone: [facility] 250 DO Work Phone: 10-09-2021 influenza virus vacc ine, unspecified formulation [employer] [facility] 11-29-2020 Christina COVID-19 Vac cine 0.5 ML Intramuscular Suspension Sam E [place] Work Phone: [facility] 09-06-2019 influenza virus vacc ine, unspecified formulation [employer]ung [employer] [facility] 09-06-2019 influenza, high dose seasonal, preservative-free [place] E [place] Work Phone: [facility] 250 DO Work Phone: 06-24-2019 influenza virus vacc ine, unspecified formulation [employer] [facility] 06-24-2019 influenza, high dose seasonal, preservative-free [place] E [place] Work Phone: [facility] 250 DO Work Phone: 08-04-2018 influenza virus vacc ine, unspecified formulation Innovac[employer] [facility] 08-04-2018 influenza, high dose seasonal, preservative-free [place] E [place] Work Phone: [facility] 250 DO Work Phone: 05-25-2018 influenza virus vacc ine, unspecified formulation [employer] [facility] 05-25-2018 influenza, seasonal, injectable Sam E [place] Work Phone: [facility] 250 DO Work Phone: 09-21-2017 influenza virus vacc ine, unspecified formulation [employer] [facility] 09-21-2017 Seasonal trivalent influenza vaccine, adjuvanted, preservative free [place] E [place] Work Phone: [facility] 250 DO Work Phone: 09-24-2016 pneumococcal polysaccharide vaccine, 23 valent [place] E [place] Work Phone: [facility] 10-19-2015 pneumococcal conjuga te vaccine, 13 valent [place] E [place] Work Phone: [facility] 07-12-2015 pneumococcal polysaccharide vaccine, 23 valent [place] E [place] Work Phone: [facility] 2014 zoster vaccine, live [place] E [place] Work Phone: [facility] 08-08-2011 influenza virus vacc ine, unspecified formulation Trungemily FERGUSON [facility] 08-08-2011 influenza, seasonal, injectable [place] E [place] Work Phone: [facility] 250 DO Work Phone: 07-14-2009 influenza virus vacc ine, whole virus Sam E [place] Work Phone: [facility] 250 DO Work Phone: 07-14-2009 influenza, whole Trung LACI ERS [facility] Payers Date Payer Category Payer Self-pay [id number] 2022 Medicare [id number] 2022 Unknown 2019 Medicare MEDICARE ESHA Mcgill MEDICARE xxxxxxxxxxx 2019-Present [phone] [place] [address] xxxxxxxxxxx [id number] 2019 Unknown [employer] [place] MEDIC[employer] SUPP xxxxxx-xx 2019-Present [phone] ATTN INDIVIDUAL CLAIMS [id number] [place] [address] xxxxxx-xx [id number] 2019 Unknown [id number] 2012 Medicare [id number] 1959 Medicare [id number] 1959 Medicare [id number] 1959 Unknown [id number] 1947 Unknown [id number] 2.16.840.1.024866.3.579.2 .175 1947 Unknown [id number] 2.16.840.1.494382.3.579.2 .175 1947 Unknown [id number] 2.16.840.1.514250.3.579.2 .175 1947 Unknown [id number] 2.16.840.1.637038.3.579.2 .593 1947 Unknown [id number] 2.16.840.1.132565.3.579.2 .593 1947 Unknown [id number] 2.16.840.1.877845.3.579.2 .593 1947 Unknown [id number] 2.16.840.1.186578.3.579.2 .593 1947 Unknown [id number] 2.16.840.1.730512.3.579.2 .593 1947 Unknown [id number] 2.16.840.1.108098.3.579.2 .593 1947 Unknown [id number] 2.16.840.1.563769.3.579.2 .593 1947 Unknown [id number] 2.16.840.1.893386.3.579.2 .593 1947 Unknown [id number] 2.16.840.1.075102.3.579.2 .593 1947 Unknown [id number] 2.16.840.1.377483.3.579.2 .593 1947 Unknown [id number] 2.16.840.1.450474.3.579.2 .593 1947 Unknown [id number] 2.16.840.1.796119.3.579.2 .356 1947 Unknown [id number] 2.16.840.1.909616.3.579.2 .356 1947 Unknown [id number] 2.16.840.1.334283.3.579.2 .356 1947 Unknown [id number] 2.16.840.1.081823.3.579.2 .356 1947 Unknown [id number] 2.16.840.1.217170.3.579.2 .356 1947 Unknown [id number] 2.16.840.1.752817.3.579.2 .356 1947 Unknown [id number] 2.16.840.1.785908.3.579.2 .356 1947 Unknown [id number] 2.16.840.1.837954.3.579.2 .356 1947 Unknown [id number] 2.16.840.1.522838.3.579.2 .356 1947 Unknown [id number] 2.16.840.1.748161.3.579.2 .159 1947 Unknown [id number] 2.16.840.1.875271.3.579.2 .159 1947 Unknown [id number] 2.16.840.1.509303.3.579.2 .727 1947 Unknown [id number] 2.16.840.1.395084.3.579.2 .727 1947 Unknown [id number] 2.16.840.1.989611.3.579.2 .727 1947 Unknown [id number] 2.16.840.1.073439.3.579.2 .727 1947 Unknown [id number] 2.16.840.1.829750.3.579.2 .727 1947 Unknown [id number] 2.16.840.1.144063.3.579.2 .727 1947 Unknown [id number] 2.16.840.1.911774.3.579.2 .1246 1947 Unknown [id number] 2.16.840.1.288263.3.579.2 .1246 1947 Unknown [id number] 2.16.840.1.147498.3.579.2 .1286 1947 Unknown [id number] 2.16.840.1.974308.3.579.2 .1286 1947 Unknown [id number] 2.16.840.1.934241.3.579.2 .1259 1947 Unknown [id number] 2.16.840.1.059466.3.579.2 .1259 1947 Unknown [id number] 2.16.840.1.830946.3.579.2 .1259 1947 Unknown [id number] 2.16.840.1.413355.3.579.2 .1245 1947 Unknown [id number] 2.16.840.1.677214.3.579.2 .1245 1947 Unknown [id number] 2.16.840.1.776099.3.579.2 .1244 Private Health Insurance Unknown [id number] 2.16.840.1.466808.3.579.2 .531 Unknown [id number] 2.16.840.1.498340.3.579.2 .531 Unknown [id number] 2.16.840.1.738064.3.579.2 .531 Unknown [id number] 2.16.840.1.208152.3.579.2 .531 Unknown [id number] 2.16.840.1.719802.3.579.2 .531 Unknown [id number] 2.16.840.1.159186.3.579.2 .531 Unknown [id number] 2.16.840.1.176602.3.579.2 .531 Unknown [id number] 2.16.840.1.177808.3.579.2 .531 Social History Date Type Detail Facility Start: 02-04-2020 End: 03-05-2024 Tobacco smoking status NHIS Former smoker [facility] Start: 1945 Sex Assigned At Not on file [place] Start: 1945 Sex Assigned At Male [facility] Start: 10-13-2020 End: 10-22-2023 Tobacco use and exposure Never used [place] Start: 08-12-2023 End: 12-28-2023 Exposure to SARS-CoV-2 (event) Not sure [place] Start: 06-15-2022 End: 08-22-2023 Occasional caffeine consumption Occasional caffeine consumption [facility] Comment on above: Quit 1960's; Tea; Start: 08-29-2021 End: 12-03-2023 Tobacco smoking status Never smoked tobacco (finding) [facility] Tobacco smoking status Never [facility] Start: 06-15-2022 End: 08-22-2023 Sex Assigned At Male [facility] End: 09-24-1959 History of tobacco use Current smoker [facility] Work Phone: End: 09-24-1959 History of tobacco use Cigarette Smoker [facility] Work Phone: Start: 08-22-2023 Alcohol intake Ex-drinker (finding) [facility] Work Phone: Start: 08-13-2023 End: 10-22-2023 Alcohol intake Lifetime non-drinker (finding) [facility] Work Phone: Medical Equipment Procedure Code Equipment Code Equipment Origin al Text Equipment Identifier Dates ()[id number] [id number] FDA Start: 04-07-2020 System, Access, Fxd Dbl Curve, Watchman - [id number] Start: 08-28-2023 Device, Closure, 27mm Watchman Flx Laac - [id number] Start: 08-28-2023 Goals Date Patient Goal Desired Activity /State Functional Status Date Assessment Result Facility 03-09-2024 Functional status Patient at Baseline [facility] Work Phone: 03-05-2024 Functional status Patient is Pro gressing Toward Baseline [facility] Work Phone: 12-03-2023 Functional Status N/A [facility] 07-09-2023 Functional Status N/A [facility] 04-03-2023 Functional Status N/A [facility] 01-23-2023 Functional Status N/A [facility] 01-01-2023 Functional Status N/A [facility] 11-03-2022 Functional Status N/A [facility] 10-02-2022 Functional Status N/A [facility] 06-15-2022 PHQ-9 [id number] In Remission (0-4 ) [facility] DO Work Phone: 04-24-2022 Functional Status N/A [facility] Mental Status Date Assessment Result Facility 03-09-2024 Cognitive function Cognitive Sta tus Patient at Baseline [facility] Work Phone: 03-05-2024 Cognitive function Cognitive Sta tus Patient is Progressing Toward Baseline [facility] Work Phone: Clinical Notes 11-23-2019 to 03-10-2024 Note Date & Type Note Facility 03-10-2024 Hospital Discharg e instructions Additional Instructions [facility] to manage care: - Full code - PT/OT eval and treat - Routine vital signs - Mepilex border foam to Coccyx for added protection. Change every 3 days and as needed. - CBC/CMP on Sunday - results to Oncology Dr. Cuevas [facility] Work Phone: 03-09-2024 Discharge summary Note Date/Time March 09, 2024 2:18pm [facility] [address] [place] [address] Discharge Summary Signed Patient: Neil Wilcox MR#: [id number] : 1945 Acct:[id number] Age/Sex: 78 / M Adm Date: 4 Loc: Room: [address] [place] [address]: Vijay Aguialr MD Copies to: MD Sam Zhang,DO~ Providers [...] Consult to PT for:: Evaluation and Treat 06/12/24 14:14 Consult to Occupational Therapy Routine Comment: [...] who was in a CAT scan at [facility] getting a bone marrow biopsy when he [...] can be found in the EHR of [facility]. The patient left hospital appropriately [...] pending. Discharge Plan Discharge Plan Patient Disposition: terminologist [place] Care/Resident Activity: No Activity Restriction Diet: Regular Additional Instructions: [facility] to manage care: - Full code - [...] 21 DAYS AND 7 DAYS OFF.ADULT MALE AUTH#[id number] losartan 100 mg tablet 100 mg PO [...] Day Facility: ACUTE - Location: [facility] [place] Ordered By: Bertha Cuevas Complete Blood Count Auto Diff (Stat) Timeframe: 1 Day Location: Determined by Patient Ordered By: Bertha Cuevas Complete Blood Count Auto Diff (Stat) Timeframe: 1 Day Facility: ACUTE - Location: [facility] [place] Ordered By: Bertha Cuevas Complete Blood Count [...] Day Facility: ACUTE - Location: [facility] [place] Ordered By: Bertha Cuevas Comprehensive Metabolic Panel (Stat) Timeframe: 1 Day Facility: ACUTE - Location: [facility] [place] Ordered By: Bertha Cuevas Follow Up: Bertha Cuevas MD [[facility] - Physician] - 03/19/24 2:00 pm [...] % (Auto) N/A, Lymph % (Auto) N/A, Jessamine % (Auto) N/A, Eos % (Auto) N/A, Baso % (Auto) N/A, Nucleat RBC Rel Count N/A, Neut # (Auto) N/A, Lymph # (Auto) N/A, Jessamine # (Auto) N/A, Eos # (Auto) N/A, [...] <Electronically signed by Vijay Aguilar MD> 03/09/24 153 [facility] Work Phone: 1(138) 199-154306-15-2024 Progress note Author Vijay Aguilar [facility] March 08, 2024 7:44pm Note Date/Time March 08, 2024 7:45 pm [facility] [address] [place] [address] Hospitalist Progress Note Signed Patient: Neil Wilcox MR#: [id number] : 1945 Acct:[id number] Age/Sex: 78 / M Adm Date: 4 Loc: Room: [address] [place] [address] Type: ADM IN Attending Dr: Vijay Aguilar [...] who was in a CAT scan at [facility] getting a bone marrow biopsy when he [...] <Electronically signed by Vijay Aguilar MD> 03/08/241943 [facility] Work Phone: 1(688) 156-814006-14-2024 Progress note Author Verenice Mario [facility] March 07, 2024 2:50pm Note Date/Time March 07, 2024 2:50 pm [facility] [address] [place] [address] Med Onc/Hem Progress Note Signed Patient: Neil Wilcox MR#: [id number] : 1945 Acct:[id number] Age/Sex: 78 / M Adm Date: 4 Loc: Room: [address] [place] [address] Type: ADM IN Attending Dr: Roslyn Townsend [...] now progressed. Most recent labs done at [facility] during his evaluation for falls where [...] from and daughter. He had visited the [facility] after the event for site seen but [...] labs came back high concerning for IGA Gardner monoclonal multiple myeloma with IgA 3828, M [...] % (Auto) 38.8, Lymph % (Auto) 49.0, Jessamine % (Auto) 1.2, Eos % (Auto) 10.7, Baso % (Auto) 0.3, Nucleat RBC Rel Count 0.5, Neut # (Auto) 0.8 L, Lymph # (Auto) 1.0, Jessamine # (Auto) 0.0, Eos # (Auto) 0.2, [...] signed by MD Verenice Mario> 03/07/24 1450 [facility] Work Phone: 1(726) 978-655706-14-2024 Progress note Author Roslyn Townsend [facility] March 07, 2024 2:38pm Note Date/Time March 07, 2024 10:0 7am [facility] [address] [place] [address] Hospitalist Progress Note Signed Patient: Neil Wilcox MR#: [id number] : 1945 Acct:[id number] Age/Sex: 78 / M Adm Date: 4 Loc: Room: [address] [place] [address] Type: ADM IN Attending Dr: Roslyn Townsend DO Copies to: ~ Date of Service: 03/07/2024 Subjective Subjective Narrative: Mr. Wilcox is a 78M recently diagnosed with multiple myeloma with a PMHx of pancytopenia and renal insufficiency who was in a CAT scan at [facility] getting a bone marrow biopsy when he [...] signed by Roslyn Townsend DO> 03/07/24 1438 [facility] Work Phone: 1(605) 464-129906-14-2024 Progress note Author Roslyn Townsend [facility] March 07, 2024 9:31am Note Date/Time March 06, 2024 11:1 7am [facility] [address] [place] [address] Hospitalist Progress Note Signed Patient: Neil Wilcox MR#: [id number] : 1945 Acct:[id number] Age/Sex: 78 / M Adm Date: 4 Loc: Room: [address] [place] [address] Type: ADM IN Attending Dr: Roslyn Townsend [...] Dose Route Start Last Admin Trade Name Graysonq PRN Reason Stop Dose Admin Acetaminophen 650 [...] Acute renal insufficiency - BUN/Cr trending down 28/.32 - follow CMP DVT ppx: SCDs Diet: [...] signed by Roslyn Townsend DO> 03/07/24 0931 [facility] Work Phone: 1(203) 245-543606-13-2024 [facility] Consult note Author Bertha Cuevas [facility] March 05, 2024 4:49pm Note Date/Time March 05, 2024 4:49 pm [facility] [address] [place] [address] Med Onc/Hem Consult Note Signed Patient: Neil Wilcox MR#: [id number] : 1945 Acct:[id number] Age/Sex: 78 / M Adm Date: 4 Loc: ER Room: Type: [facility] ER Attending Dr: Copies to: MD [...] now progressed. Most recent labs done at [facility] during his evaluation for falls where [...] from and daughter. He had visited the [facility] after the event for site seen but [...] labs came back high concerning for IGA Gardner monoclonal multiple myeloma with IgA 3828, M [...] fracture and therefore [place] [facility] now for [place] and probably long- term due to his dementia. He is a and was not active in water but he was in [place] and during [place] War. He visited [facility] for the sightseeing but was not during the nuclear [employer] event. He has been having multiple falls as well since June 2023. [facility] Medical History (Updated 03/05/24 @ 14:13 by [...] Confirmed 03/05/24] thyroid (pork) 90 mg tablet ([facility] Thyroid) 90 mg PO QAM thyroid 02/27/20 [...] % (Auto) N/A, Lymph % (Auto) N/A, Jessamine % (Auto) N/A, Eos % (Auto) N/A, Baso % (Auto) N/A, Nucleat RBC Rel Count N/A, Neut # (Auto) N/A, Lymph # (Auto) N/A, Jessamine # (Auto) N/A, Eos # (Auto) N/A, [...] Chemotherapy Documented By: Bertha Cuevas MD 03/05/24 1052 Signed By: <Electronically signed by Bertha Cuevas MD> 03/05/24 1646 [facility] Work Phone: 1(268) 839-753006-12-2024 History and physical note Author Roslyn Townsend [facility] March 05, 2024 4:12pm Note Date/Time March 05, 2024 3:45 pm [facility] [address] [place] [address] Hospitalist H&P Signed Patient: Neil Wilcox MR#: [id number] : 1945 Acct:[id number] Age/Sex: 78 / M Adm Date: 4 Loc: ER Room: Type: [facility] ER Attending Dr: Copies to: Trung Armenta, DO Sam Cooney,DO Roslyn Townsend DO~ HPI DATE OF EXAMINATION: 03/05/24 CHIEF COMPLAINT: Hypotension HISTORY OF PRESENT ILLNESS: Mr. Wilcox is a 78M recently diagnosed with multiple myeloma with a PMHx of pancytopenia and renal insufficiency who was in a CAT scan at [facility] getting a bone marrow biopsy when he [...] negative unless noted below or in HPI [facility] Medical History (Updated 03/05/24 @ 14:13 by Background Kamila) Hypercalcemia Thrombocytopenia Elevated total protein Acute renal [...] Confirmed 03/05/24] thyroid (pork) 90 mg tablet ([facility] Thyroid) 90 mg PO QAM thyroid 02/27/20 [...] 11:49 Lymph % (Auto) N/A 03/05/24 11:49 Jessamine % (Auto) N/A 03/05/24 11:49 Eos % (Auto) N/A 03/05/24 11:49 Baso % (Auto) N/A 03/05/24 11:49 Nucleat RBC Rel Count N/A 03/05/24 11:49 Neut # (Auto) N/A 03/05/24 11:49 Lymph # (Auto) N/A 03/05/24 11:49 Jessamine # (Auto) N/A 03/05/24 11:49 Eos # [...] signed by Roslyn Townsend DO> 03/05/24 161 [facility] Work Phone: 1(467) 836-269306-12-2024 History and physical note Author Roslyn Townsend [facility] March 05, 2024 4:12pm Note Date/Time March 05, 2024 3:45 pm [facility] [address] [place] [address] Hospitalist H&P Signed Patient: Neil Wilcox MR#: [id number] : 1945 Acct:[id number] Age/Sex: 78 / M Adm Date: 4 Loc: ER Room: Type: [facility] ER Attending Dr: Copies to: DO Sam Camara,DO Roslyn Townsend DO~ HPI DATE OF EXAMINATION: 03/05/24 CHIEF COMPLAINT: Hypotension HISTORY OF PRESENT ILLNESS: Mr. Wilcox is a 78M recently diagnosed with multiple myeloma with a PMHx of pancytopenia and renal insufficiency who was in a CAT scan at [facility] getting a bone marrow biopsy when he [...] negative unless noted below or in HPI [facility] Medical History (Updated 03/05/24 @ 14:13 by [...] Confirmed 03/05/24] thyroid (pork) 90 mg tablet ([facility] Thyroid) 90 mg PO QAM thyroid 02/27/20 [...] 11:49 Lymph % (Auto) N/A 03/05/24 11:49 Jessamine % (Auto) N/A 03/05/24 11:49 Eos % (Auto) N/A 03/05/24 11:49 Baso % (Auto) N/A 03/05/24 11:49 Nucleat RBC Rel Count N/A 03/05/24 11:49 Neut # (Auto) N/A 03/05/24 11:49 Lymph # (Auto) N/A 03/05/24 11:49 Jessamine # (Auto) N/A 03/05/24 11:49 Eos # [...] signed by Roslyn Townsend DO> 03/05/24 1612 [facility] Work Phone: 1([phone]) 408-502403-11-2024 Hospital Discharge instructions Patient Education 12/03/2023 16:13:12 [...] your health care provider. General instructions Take ciqi-uqy-bbkngpi and prescription medicines only as told by [...] provider. Document Revised: 05/30/2021 Document Reviewed: 05/30/2021 Agendize Patient Education 2022 Panelfly. Follow Up Care 07/09/2023 11:46:47 With:MARTY BETANCOURT, Trung Frost, URL Address: [facility] [address], [place] [address] [phone] When: Unknown Comments:6 mos (increase med dosage) [facility] [place] 02-27-2024 NoteProcedure Cancelation Documentation Entered On: 11/20/2023 10:21 EST Performed On: 11/20/2023 10:17 EST by Sahra Lizarraga RN Procedure Cancelation Documentation Surgery Procedure Cancelation : 11/20/2023 10:17 EST Surgery Procedure Cancel Reason : low hemoglobin/hematocrit. dr shaffer spoke with patient + pt's at length. pt instructed to contact primary care physician Sahra Lizarraga RN - 11/20/2023 10:17 [facility] 11-20-2023 NotePreprocedure Checklist Entered On: 11/15/2023 14:01 [...] risk situation (congregated living, hemodialysis, infusion clinic, [place] [facility] [place], assisted living, residential, homeless fdc, etc.)? : No Sahra Lizarraga RN - [...] on and Verified : Yes Fall Risk Gizzard Puller : Yes Blood Band on and Verified : Yes Current H&P in Medical Record : Yes (Comment: 11/15/23 [Mary Ellen Price RN - 11/15/2023 13:49 EST] ) Mary Ellen Price RN 11/20/2023 9:50 EST Current ECG in Medical Record : Yes (Comment: 10/12/23 [Mary Ellen Price RN 11/15/2023 13:49 EST] ) Basic Walton : Yes (Comment: 10/12/23 [Mary Ellen Price RN 11/15/2023 13:49 EST] ) Prox / APTT : Yes (Comment: 10/12/23 [Mary Ellen Price RN 11/15/2023 13:49 EST] ) Mary Ellen Price RN 11/15/2023 13:49 EST CBCND : Yes (Comment: 11/15/23- faxed results to Dr. Shaffer's office [Mary Ellen Price RN 11/15/2023 13:49 EST] ) Mary Ellen Price RN 11/15/2023 15:39 EST Type & Screen : Yes (Comment: 11/15/23 [Mary Ellen Price RN 11/15/2023 13:49 EST] ) UA : Yes (Comment: 11/15/23 [Mary Ellen Price RN 11/15/2023 13:49 EST] ) Mary Ellen Price RN 11/15/2023 16:00 EST Verification Sleep Apnea : Yes Prosthesis/Metal : right shoulder Pacemaker/AICD : denies Mode of Arrival : Wheelchair Sahra Lizarraga RN 11/20/2023 9:50 EST DCP GENERIC CODE H&P Update Within 24 hrs on New Admits : Yes MYRTLE Hose : Yes Sequential Compression Device : Yes Clipper Prep : Yes Family Waiting : Yes (Comment: , shanice [Sahra Lizarraga RN 11/20/2023 9:50 EST] ) Can Surgeon Speak With Family : Yes Sahra Lizarraga RN 11/20/2023 9:50 EST Anesthesia/Transfusions Anesthesia/Transfusions : Prior anesthesia Accept Blood Products if Necessary : Yes Mary Ellen Price RN 11/15/2023 14:17 EST Advance Directive Advance Directive Date : unk Sahra Lizarraga RN - 11/20/2023 9:50 EST Advanced Directives : Yes Advance Directive Type : Living will, Medical durable power of family law attorney Advance Directive Location : Family to bring in copy from home Advance Directive Additional Information : No Mary Ellen Price RN - 11/15/2023 14:17 EST Surgical Clipper Prep Surgery Clipper Prep : done in preop Sahra Lizarraga RN - 11/20/2023 9:50 EST [facility]02-27-2024 NotePAA Education Entered On: 11/15/2023 13:49 EST Performed On: 11/20/2023 9:51 EST by Mary Ellen Prcie RN General / Required Education Nursing General [...] Education Dialysis Surgery - Hospital form # [id number] : Verbalizes understanding Mary Ellen Price RN [...] Mary Ellen Price RN - 11/15/2023 13:49 [facility]02-22-2024 NotePatient: NEIL WILCOX Age: 78 years Sex: [...] 500 mg = 1 tabs, PRN, ORAL, [id number] acetaminophen/butalbital/caffeine 325 mg-50 mg-40 mg oral tablet = Fioricet 1 tabs, PRN, ORAL, [id number] Aspirin EC 81 mg oral delayed release [...] 2 mg = 1 caps, PRN, ORAL, [id number] losartan 100 mg oral tablet 100 mg [...] strength, No tenderness, No swelling. Integumentary: Warm, [place]. Neurologic: Alert, Oriented. Cognition and Speech: Oriented, [...] cardiac clearance and o (more content not included)...[facility]01-29-2024 History of Present illness Narrative* Za Hernández [...] due to atrial fibrillation, on anticoagulation. 10. [id number] at least 5. Has bled score 2 [...] redirect to the Timeline version of the [facility] SmartLink. Wt Readings from Last 3 Encounters: [...] Daily atorvastatin (LIPITOR) 40 mg, oral, Daily lnnwcbkjbw-aqlccrk-sgnrjmja (Fiorinal) 50-325-40 mg capsule 1 capsule, oral, [...] By signing my name below, Halie Paez LPN, Scribe attest that this documentation has been prepared under the direction and in the presence of Za Hernández MD. Provider Attestation - Scribe documentation All medical record entries made by the Scribe were at my direction and personally dictated by me. Cory reviewed the chart and agree that the record accurately reflects my personal performance of the history, physical exam, discussion and plan. documented in this encounterPro[facility] Work Phone: 1(126) 911-315601-29-2024 Instructions* Patient Instructions* Phuong Atkinson CMA - [...] time of your visit. documented in this encounterPro[facility]ica [facility] Work Phone: 1([phone]) 394-352101-19-2024 NotePAA Education Entered On: 10/12/2023 10:13 EST [...] further teaching Speakup : Needs further teaching mAy Hager RN - 10/12/2023 10:10 EST Topic Specific Education Health Maintenance GRID Bathing/Hygiene : Verbalizes understanding Diet/Nutrition : Verbalizes understanding Exercise : Verbalizes understanding Oral Care : Verbalizes understanding Amy Hager RN - 10/12/2023 10:10 EST Education Medication Management GRID Correct Self-Administration : Verbalizes understanding Amy Hager RN - 10/12/2023 10:10 EST Education Respiratory Care Nursing GRID Smoking/Tobacco Use : Verbalizes understanding Amy Hager RN 10/12/2023 10:10 EST Infection Control Education Dialysis Surgery - Hospital form # [id number] : Needs further teaching Amy Hager RN 10/12/2023 10:10 EST Pain Pain Education Topics Grid Pain Assessment Schedule : Needs further teaching Pain Assessment Tool : Needs further teaching Pain Can Be Managed/Relieved : Needs further teaching Pain Management Side Effect : Needs further teaching Amy Hager RN - 10/12/2023 10:10 EST Pre Procedure / Surgery [...] ) Amy Hager RN - 10/12/2023 10:10 [facility] course Narrative* Adam Benedict MD - 08/28/2023 1:11 PM EST Discharge Diagnosis Atrial fibrillation ([facility]) Hospital Course S/p VINNIE closure Access: Dual [...] 40 mg tablet; Commonly known as: Lipitor dcxtupuoeq-mcmwaqloxudlb-ozvk 50-325-40 mg tablet cyanocobalamin 1,000 mcg tablet; [...] Center 09/20/2023 10:30 AM Za Hernández MD [id number] Adam Benedict MD documented in this [facility] Work Phone: 1(733) 596-224512-05-2023 History of Present illness Narrative* Humble Felton, [facility] - 08/28/2023 12:10 PM EST Pharmacy Medication History Review Neil Wilcox is a 77 y.o. male admitted for Atrial fibrillation ([facility]). Pharmacy reviewed the patient's uhbnc-bf-wqbsqhrtt medications and allergies for accuracy. The list below reflects the updated BORING AND FILLING MACHINE OPERATOR list. Comments regarding how patient may be [...] tablet (40 mg) by mouth once daily. rsxqqihblx-yncpjnktvspag-zqwu 50-325-40 mg tablet Past Week Spouse/Significant Other, [...] Below are additional concerns with the patient's BORING AND FILLING MACHINE OPERATOR list. Humble Felton [facility] Transitions of Care Clinical Pharmacist Please reach out via WoraPay Chat for questions, if no response call TopPatch or [facility] documented in this encounterProMedica Flower Hospital Work Phone: 1([phone]) 125-559212-05-2023 Note* Pre-Sedation Documentation - Adam Benedict MD - 08/28/2023 10:39 AM EST Sedation Plan ASA 2 Mallampati class: II. Risks, benefits, and alternatives discussed with patient. [facility] Work Phone: 1([phone]) 218-585912-05-2023 Miscellaneous Notes* Pre-Sedation Documentation - Adam Benedict MD - 08/28/2023 10:39 AM EST Sedation Plan ASA 2 Mallampati class: II. Risks, benefits, and alternatives discussed with patient. documented in this [facility] Work Phone: 1(441) 476-887612-04-2023 Hospital Discharge instructions* Discharge Instructions* Lucas Pearce, USABILITY ENGINEER-DISTRIBUTION AGENT - 08/27/2023 12:20 PM EST Watchman Discharge [...] you have any concerns, youmay contact the Foot Caster or if any of these symptoms become excessive, contact your renal medicine specialist maikel to the emergency room. No tub [...] Any new concerning symptoms. documented in this [facility] Work Phone: 1(339) 597-200310-16-2023 Hospital Discharge instructions Patient Education 07/09/2023 11:37:10 [...] urethra. Follow these instructions at home: Take mlxp-cbn-opumxfv and prescription medicines only as told by [...] provider. Document Revised: 03/29/2022 Document Reviewed: 03/29/2022 Agendize Patient Education 2022 Panelfly. Follow Up Care 01/01/2023 13:25:14 With:MARTY BETANCOURT, Trung Frost, URL Address: [facility] [address], [place] [address]- When:Within 4 Month(s) [facility] [place] 07-11-2023 Hospital Discharge instructions Patient Education [...] provider. Document Revised: 01/19/2022 Document Reviewed: 01/19/2022 Agendize Patient Education 2022 Panelfly. Follow Up Care 01/23/2023 14:39:57 With:CHARLOTTE BAKER PA-C, URL Address: [address] [place] [address] When: Unknown Comments:keep appt w/ [facility] 06-01-2023 History of Present illness Narrative* 77-year-old with history of atrial fibrillation, hypercoagulability related to atrial fibrillation,high RZA5YF2-IAMs score, most recently seen February 2023 and [...] to atrial fibrillation, on anticoagulation. * 10. TOP7FD3-IEEd at least 5. Has bled score 2 [...] 50 mg p.o. daily and discontinue amlodipine. -[facility] [address] DO Work Phone: 1([phone]) 811-397205-02-2023 Hospital Discharge instructions Patient Education 01/23/2023 14:45:05 [...] air conditioner or fan, if available. Apply iwpp-iit-cgpdewz and prescription medicines only as told by [...] drying your skin and with medicines. Apply azum-wyc-ajngsrl and prescription medicines only as told by your health care provider. Keep all follow-up visits as told by your health care provider. This is important. This information is not intended to replace advice given to you by your health care provider. Make sure you discuss any questions you have with your health care provider. Document Revised: 06/26/2022 Document Reviewed: 06/26/2022 ElsePiktochart Patient Education 2022 Panelfly. [facility] 04-10-2023 Hospital Discharge instructions Patient Education 01/01/2023 [...] reconstructed. Follow these instructions at home: Take vvqi-huz-tawkdoh and prescription medicines only as told by [...] 10/06/2016 Document Revised: 04/23/2019 Document Reviewed: 04/23/2019 Ag[employer]ize Patient Education 2020 Panelfly. Follow Up Care 10/02/2022 12:40:38 With:MARTY BETANCOURT, Trung Frost, URL Address: [facility] [address] , [place] [address]- When: Unknown [facility] 02-10-2023 Hospital Discharge instructions Patient Education 11/03/2022 [...] reconstructed. Follow these instructions at home: Take qcbs-oxl-eukpuqn and prescription medicines only as told by [...] 10/06/2016 Document Revised: 04/23/2019 Document Reviewed: 04/23/2019 Agendize Patient Education 2020 Panelfly. Follow Up Care 11/03/2022 12:06:47 With:MARTY BETANCOURT, Trung Frost, URL Address: [address] [place], [place] [id number]- When: Unknown [facility] 01-09-2023 Hospital Discharge instructions Patient [...] fried and sweet foods. General instructions Take vpyq-zwn-pswmmpz and prescription medicines only as told by [...] 07/07/2010 Document Revised: 01/01/2020 Document Reviewed: 09/26/2018 Agendize Patient Education 2020 Panelfly. Follow Up Care 07/24/2022 14:33:35 With:MARTY BETANCOURT, Trung Frost, URL Address: [facility] [address] , [place] [address]- [phone] When:Within 3 Month(s) [facility] [place] 01-01-2023 History of Present illness Narrative* [...] to atrial fibrillation, on anticoagulation. * 10. VHL9LS4-FRNo at least 5. Has bled score 2 insurance changed, now able to afford [employer]. * Recommendations: * 1. Decrease metoprolol succinate [...] 3 months sooner if interval problems arise [facility] [address] DO Work Phone: [phone]) [phone] History of Present illness Narrative* This is [...] orthostatics * 5. Fall precautions were reiterated. [facility] Laguerre DO Work Phone: [phone]) [phone] Hospital Discharge instructions Patient Education 04/24/2022 12:32:07 [...] nerve stimulation). For women, using a medical review coordinator to prevent urine leaks. This is a [...] right after experiencing incontinence. General instructions Take gxuc-fwn-wnwhbbt and prescription medicines only as told by [...] 10/18/2005 Document Revised: 09/20/2018 Document Reviewed: 12/20/2017 Agendize Patient Education 2020 Panelfly. Follow Up Care 01/24/2022 09:45:35 With:MARTY BETANCOURT, Trung Frost, URL Address: [facility] [address], [place] [address] [phone] When: Unknown Comments:w/ urodynamics [facility] [place] 05-02-2022 Hospital Discharge instructions Patient Education [...] urethra. Follow these instructions at home: Take pexj-fxs-labckag and prescription medicines only as told by [...] 09/10/2006 Document Revised: 08/05/2019 Document Reviewed: 10/15/2017 Agendize Patient Education 2020 Panelfly. Follow Up Care 12/20/2021 10:58:17 With:MARTY BETANCOURT, Trung Frost, URL Address: [facility] [address], [place] [address]- When: Unknown [facility] 01-01-2022 History of Present illness [...] much in the way of symptoms. -[facility] 250 DO Work Phone: [phone]) 993-835603-01-2020 History of Present illness NarrativeMr. Wilcox is a 75-year-old male seen back today for follow-up on his implanted loop recorder. He was seen initially as a consult requested by neurology. He was admitted to [facility] in [place] in November 2019 with an acute stroke. [...] pain seems to be stable from cardiac perspective.-[facility] 250 DO Work Phone: 1([phone]) 249-128203-01-2020 History of Present illness Narrative* Patient is new to this provider. Per Dr. Reyes's prior notes: * Mr. Wilcox is a 75-year-old male seen back today for follow-up on his implanted loop recorder. He was seen initially as a consult requested by neurology. He was admitted to [facility] in [place] in November 2019 with an acute stroke. [...] medications for him in viewof his BPH. [facility] 250 DO Work Phone: Chief complaint Narrative - ReportedNEIL WILCOX is being seen for Discuss progress.[facility] 250 DO Work Phone: Evaluation + Plan note Future Appointments Appointment Date:01/24/2022 09:30:00 AM Scheduled Provider: Location:[facility] Appointment Type:Urology FT Appointment Date:09/04/2022 08:45:00 AM Scheduled Provider:Trung FERGUSON MD Location:[facility] Appointment Type:URO Office Visit [facility] evaluation + Plan note Future Appointments Appointment Date:04/25/2022 12:15:00 PM Scheduled Provider: Location:[facility] Appointment Type:Urology CALL PAT FT Appointment Date:05/09/2022 11:00:00 AM Scheduled Provider: Location:[facility] Appointment Type:Urology FT Appointment Date:09/04/2022 08:45:00 AM Scheduled Provider:Trung [facility]USON [facility] Office Visit [facility] evaluation + Plan note Future Appointments Appointment Date:09/04/2022 08:45:00 AM Scheduled Provider:Trung FERGUSON MD Location:[facility] Future App[facility]ments Appointment Date:09/29/2022 08:45:00 AM Scheduled Provider:Trung [facility]ERGUSON MD [facility] Office Visit [facility] evaluation + Plan note Future Appointments Appointment Date:01/01/2023 11:30:00 AM Scheduled Provider:Trung FERGUSON MD [facility] Type:[facility] Office Visit [facility] evaluation + Plan note Future Appointments Appointment Date:01/01/2023 11:30:00 AM Scheduled Provider:Trung FERGUSON MD Location:[facility] Appointment Type:URO Office Visit Diagnostic Tests Pending * Urine Culture [facility] [place] Plan note Future Appointments Appointment Date:11/06/2022 09:00:00 AM Scheduled Provider: Location:[facility] Appointment Type:URO Nurse Visit Appointment Date:01/01/2023 11:30:00 AM Scheduled Provider:Trung FERGUSON MD [facility] Type:[facility] Office Visit [facility] evaluation + Plan note Future Appointments Appointment Date:07/09/2023 10:30:00 AM Scheduled Provider:Trung FERGUSON MD [facility] Type:URO Office Visit [facility] evaluation + Plan note Future Appointments Appointment Date:04/03/2023 09:00:00 AM Scheduled Provider:CHARLOTTE BAKER PA-C Location:[facility] Appointment Type:URO Office Visit Appointment Date:07/09/2023 10:30:00 AM Scheduled Provider:Trung FERGUSON MD Location:[facility] Appointment Type:URO Office Visit [facility] evaluation + Plan note Future Appointments Appointment Date:11/12/2023 11:15:00 AM Scheduled Provider:Trung FERGUSON MD Location:[facility] Appointment Type:URO Office Visit [facility] evaluation + Plan note Future Appointments Appointment Date:06/16/2024 01:15:00 PM Scheduled Provider:Trung FERGUSON MD Location:[facility] Appointment Type:URO Office Visit [facility] evaluation noteNo Assessments Information Available [facility] assessment information available [facility]* Diagnosis Paroxysmal atrial fibrillation (CMS/HCC)- Primary Atrial fibrillation Atrial fibrillation (CMS/HCC)- Primary Atrial fibrillation Atrial fibrillation (CMS/HCC) Atrial fibrillation documented in this encounter [facility] Work Phone: Evaluation note* Diagnosis Atrial fibrillation (CMS/HCC)- Primary Atrial fibrillation Atrial fibrillation (CMS/HCC) Atrial fibrillation Chronic atrial fibrillation, unspecified (CMS/HCC) 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 documented in this encounter [facility] Work Phone: Evaluation note* Diagnosis Unspecified [...] of left shoulder documented in this encounter [facility] Work Phone: Evaluation note* Diagnosis Atrial fibrillation, unspecified type (CMS/HCC) documented in this encounter [facility] Work Phone: Evaluation note* Diagnosis Onset Date Resolution Status Acute renal insufficiency ac emmonak Anemia acute Elevated total protein acute Leukopenia acute Pancytopenia acute Thrombocytopenia acute Acute hypotension acute Acute renal insufficiency ac em[place] Anemia acute Hypercalcemia acute Multiple myeloma acute Pancytopenia acute Syncope acute Thrombocytopenia acute [facility] Work Phone: Evaluation note* Diagnosis Onset Date Resolution Status Acute renal insufficiency ac emmonak Anemia acute Elevated total protein acute Leukopenia acute Pancytopenia acute Thrombocytopenia acute Acute hypotension acute Acute renal insufficiency ac emmonak Alzheimer's dementia acute Anemia acute Encounter for chemotherapy management acute Hypercalcemia acute Leukopenia acute Multiple myeloma acute Pancytopenia acute Syncope acute Thrombocytopenia acute [facility] Work Phone: Evaluation note* Diagnosis Onset Date Resolution Status Anemia acute Elevated total protein acute Pancytopenia acute Acute renal insufficiency re solved Leukopenia resolved Thrombocytopenia resolved Alzheimer's dementia acute Hypercalcemia acute Multiple myeloma acute Pancytopenia acute Acute hypotension resolved Acute renal insufficiency re solved Anemia resolved Encounter for chemotherapy management resolved Leukopenia resolved Syncope resolved Thrombocytopenia resolved [facility] Work Phone: evaluation note* Diagnosis Onset Date Resolution Status Anemia [...] Pancytopenia acute Acute renal insufficiency re solved [facility] Work Phone: Evaluation note* Diagnosis Onset [...] Pancytopenia acute Acute renal insufficiency re solved Anemia acute Hypercalcemia acute Multiple myeloma acute Pancytopenia acute Acute renal insufficiency re solved [facility] Work Phone: History of Present illness Narrative* The patient states he has been generally stable since the last visit. Comorbid Illnesses: hypertension. * Symptoms: denies chest pain at rest, denies exertional chest pain, denies dyspnea, worsened fatigue, worsened exercise intolerance, denies palpitations, denies edema, denies orthopnea, denies dizziness and denies orthostatic dizziness. * Disease Monitoring: -[facility] DO Work Phone: History of [...] the near future to establish anticoagulation practice. [facility]: History of Present [...] the near future to establish anticoagulation practice. [facility] Pixel Qi DO Work Phone: History of Present illness [...] medication regimen. He denies medication side effects. [facility] Pixel Qi DO Work Phone: History of Present illness [...] medication regimen. He denies medication side effects. [facility] Pixel Qi DO Work Phone: Hospital course Narrative No data available for this section [facility] Discharge instructions No data available [facility] this section [facility] Additional Instructions [facility] to manage care: - Full code - PT/OT eval and treat - Routine vital signs - Mepilex border foam to Coccyx for added protection. Change every 3 days and as needed. - CBC/CMP on Sunday - [facility]: Hospital Discharge instructionsAmbulatory Orders* Referral to General Surgery Time Frame: 03/20/24, Location: None Selected [facility] Work Phone: Progress note No data available for this section [facility] progress note Author Bertha [facility] March 20, 2024 9:14am Note Date/Time March 20, 2024 8:19 am [facility] [place] [address] Cancer Center Note Signed Patient: Neil Wilcox MR#: [id number] : 1945 Acct:[id number] Age/Sex: 78 / M Type: REG AMB [...] cytopenias. BM Bx, done as inpatient at [facility], revealed multiple myeloma. Myeloma FISH revealed 14 [...] not progressed. 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 He had visited the [place] after the event for site [...] labs came back high concerning for IGA Gardner monoclonal multiple myeloma with IgA 3828, M [...] cytopenias. BM Bx, done as inpatient at [facility], revealed multiple myeloma. Myeloma FISH revealed 14 [...] up, had bone marrow biopsy while inpatient. [facility] Medical History Medical History (Updated 03/13/24 @ [...] fracture and therefore [facility] [place] [facility] and probably long- term due to his dementia. He is a and was not active in water but he was in [place] and during [place]. He visited [facility] for the sightseeing but was not during the nuclear [place] event. He has been having multiple falls [...] signed by Bertha Cuevas MD> 03/20/24 0914 [facility] Work Phone: Reason for referral (narrative)* Consultation (Routine) - Authorized Specialty Diagnoses / Procedures Referred By Contac t Referred To Contact Cardiology Diagnoses Paroxysmal atrial fibrillation (CMS/HCC) Procedures Follow Up In Cardiology Za Hernández MD [address] [facility] [address] [place] [address] Za Hernández MD [address] [facility] [address] [place] [address] Referral ID Status Reason Start Date Expiration Date V isits Requested Visits Authorized [id number] Authorized 10/22/2023 10/21/2024 1 1 * Consultation (Routine) - Authorized Specialty Diagnoses / Procedures Referred By Contac t Referred To Contact Cardiology Diagnoses Paroxysmal atrial fibrillation (CMS/HCC) Procedures Follow Up In Cardiology Za Hernández MD [address] [facility] [address] [place] [address] Loulou Arreguin, USABILITY ENGINEER-DISTRIBUTION AGENT [address] [facility] 2, [facility] [address] [place] [address] Referral ID Status Reason Start Date Expiration Date V isits Requested Visits Authorized [id number] Authorized 10/22/2023 10/21/2024 1 1 [facility] Work Phone: Reason for Referral Status Reason Specialty Diagnoses / Procedures Referred By Contact Referred To Contact Not Required - Recondo Radiology Diagnoses 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) Procedures CT HEAD WO CONTRAST Ul Shalom Graham MD [address] [facility] [address] [place] [address] Specialty Diagnoses / Procedures Referred By Contac t Referred To Contact Radiology Diagnoses Atrial fibrillation, unspecified type (CMS/HCC) Procedures [place] [address] [place] [address] Referral ID Status Reason Start Date Expiration Date Visits Requested Visits Authorized [id number] Authorized Perform Procedure 11/01/2023 10/31/2024 1 1 Assessments Diagnosis 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) Advance Directives No Advanced Directives Records FoundDocuments on File Type Date Recorded Patient Manager Zone Expl anation Advance Directives and Living Will Power of Technical Solutions Engineer Latest Code Status on File Code Status Date Activated Date Inactivated Comments Full Code 12/21/2019 9:20 PM 12/22/2019 7:58 PM Advance Directive Response Recorded Date/ Time Advance Directives No October 30, 2018 10:33am Documents on File Type Date Recorded Patient Manager Zone Expl anation ACP-Advance Directive ACP-Power of Technical Solutions Engineer Latest Code Status on File Code [...] Low blood pressure Cerebral Infarction Follow Up Tox check pancytopenia Reason for Visit Anemia Elevated total protein Pancytopenia Acute renal insufficiency Leukopenia Thrombocytopenia Alzheimer's dementia Hypercalcemia Multiple myeloma Pancytopenia Acute hypotension Acute renal insufficiency Anemia Encounter for chemotherapy management Leukopenia Syncope Thrombocytopenia Anemia Hypercalcemia Multiple myeloma Pancytopenia Acute renal insufficiency Anemia Hypercalcemia Multiple myeloma Pancytopenia Acute renal [...] WO CONTRAST Ul Shalom Graham MD [address] [address] Reason Comments laao Specialty Diagnoses / Procedures Referred By Contac t Referred To Contact Diagnoses Atrial fibrillation (CMS/HCC) Atrial fibrillation (CMS/HCC) [I48.91] Procedures SC PERQ CLSR TCAT L ATR APNDGE W/ENDOCARDIAL IMPLNT SC PERQ CLSR TCAT L ATR APNDGE W/ENDOCARDIAL IMPLNT LAAO (Left Atrial Appendage Occlusion) [place] [address] [place] [id number] [place] [address] [phone] Referral ID Status Reason Start Date Expiration Date Visits Re quested Visits Authorized [id number] 1 1 Reason Comments Follow-up Watchman follow up Specialty Diagnoses / Procedures Referred By Contac t Referred To Contact Radiology Diagnoses Atrial fibrillation, unspecified type (CMS/HCC) Procedures [place] [address] [place] [address] Referral ID Status Reason Start Date Expiration Date Visits Requested Visits Authorized [id number] Authorized Perform Procedure 11/01/2023 10/31/2024 1 1 [...] section and content) DATE CREATED AUTHOR 10/14/[address] [facility] DATE CREATED AUTHOR AUTHOR'S ORGANIZ ATION 04/23/2021 [facility] DATE CREATED AUTHOR AUTHOR'S ORGANIZ ATION 10/04/2021 [facility] DATE CREATED AUTHOR AUTHOR'S ORGANIZ ATION 01/24/2023 [facility] DATE CREATED AUTHOR AUTHOR'S ORGANIZ ATION 06/15/2023 [facility] DATE CREATED AUTHOR AUTHOR'S ORGANIZ ATION 08/05/2023 [facility] DATE CREATED AUTHOR AUTHOR'S ORGANIZ ATION 09/02/2023 [facility] DATE CREATED AUTHOR AUTHOR'S ORGANIZ ATION 11/21/2023 [facility] DATE CREATED AUTHOR AUTHOR'S ORGANIZ ATION 12/04/2023 [facility] DATE CREATED AUTHOR AUTHOR'S ORGANIZ ATION 01/03/2024 [facility] DATE CREATED AUTHOR AUTHOR'S ORGANIZ ATION 01/16/2024 [facility] DATE CREATED AUTHOR AUTHOR'S ORGANIZ ATION 02/13/2024 [facility] DATE CREATED AUTHOR AUTHOR'S ORGANIZ ATION 03/05/2024 [facility] DATE CREATED AUTHOR AUTHOR'S ORGANIZ ATION 03/28/2024 [facility] DATE CREATED AUTHOR AUTHOR'S ORGANIZ ATION 04/13/2024 [facility] Ambulatory Goals (unrecognized section and content) Goals may [...] Active Member Role Status Dates Sam Cooney Primary Care Provide r, Referring Provider Active Start: March 03, 2024 Bertha Cuevas MD Attending Provider Active Start: March 03, 2024 Team Status: Active Member Role Status Dates Sam DO Eros Primary Care Provider Active Start: March 05, 2024 Bertha Cuevas MD Attending Provider Active Start: March 05, 2024 Team Status: Active Member Role Status Dates Atchisonkaterin Cooney DO Primary Care Provider Active Start: [...] Sam DO Eros Primary Care Provider Active Za Hernández MD Attending Provider Active Radioactivity Technician Relationship Specialty Start Date End Date Sam Cooney DO [address] [place] [address] PCP - General 09/24/19 Radioactivity Technician Relationship Specialty Start Date End Date Sam Cooney [address] [place] [address] PCP - General 09/24/19 Radioactivity Technician Relationship Specialty Start Date End Date Sam Cooney [address] [place] [address] PCP - General 09/24/19 Radioactivity Technician Relationship Specialty Start Date End Date Sam Cooney MD [address] [place] [address] PCP - General Family Medicine 08/13/23 Radioactivity Technician Relationship Specialty Start Date End Date Sam Cooneyan LenDO [address] [place] [address] PCP - General 09/24/19 Team Status: Inactive [...] Attending Provider Active Start: March 20, 2024 Team Status: Inactive Member Role Status Dates Sam Cooney DO Primary Care Provider Active Start: April 01, 2024 End: April 01, 2024 Soha Jensen APRN Attending Provider Acti ve Start: April 01, 2024 End: April 01, 2024 Team Status: Active Member Role Status Dates Sam Cooney DO Primary Care Provide r, Referring Provider Active Start: April 01, 2024 Bertha Cuevas MD Attending Provider Active Start: April 01, 2024 Scheduled Active and Recently Administ ered [...] er: Gordon Zambrano RN)[phone] (Given - Provider: Kaal Canseco RN) iohexol (OMNIPaque) 350 mg iodine/mL [...] BE BASED ON THE PRIMARY CLINICAL RECORDS. [employer] [facility]. provides no warranty or guarantee of the accuracy or completeness of information in this document.
[2024-04-14 11:35] LABS: Hemoglobin 7.2 g/dL (14.0-18.0); Mean Corpuscular HGB Conc 33.3 g/dL (29.9-35.2); Mean Corpuscular Volume 101.9 fL (80.0-94.0); Mean Platelet Volume 10.6 fL (9.5-13.5); Platelet Count 77 10^3/uL (150-450); Red Blood Count 2.12 10^6/uL (4.70-6.10); Red Cell Distribution Width 19.7 % (11.0-15.0); White Blood Count 1.5 10^3/uL (4.0-11.0)
[2024-04-14 11:48] LABS: Hematocrit 21.6 % (42.0-54.0)
[2024-04-14 11:54] LABS: Alanine Aminotransferase 16 U/L (16-63); Albumin Globulin Ratio 0.4; Albumin Level 2.6 g/dL (3.4-5.0); Alkaline Phosphatase 88 U/L (46-116); Anion Gap 16.5; Aspartate Amino Transferase 10 U/L (15-37); BUN Creatinine Ratio 18.2; Bilirubin Total 0.5 mg/dL (0.2-1.0); Calcium 9.3 mg/dL (8.5-10.1); Chloride 99 mmol/L (98-107); Estimated GFR (African America >60 (>=60); Estimated GFR (Non-African Ame 53 (>=60); Globulin 6.5 g/dL; Glucose 121 mg/dL (74-106); Potassium 4.5 mmol/L (3.5-5.1); Sodium 135 mmol/L (136-145); Total Protein 9.1 g/dL (6.4-8.2)
[2024-04-14 13:13] LABS: Anisocytosis 1+; Eosinophils Absolute Manual 0.07 10^3/uL (0.00-0.70); Hypochromasia 2+; Monocytes Absolute Manual 0.01 10^3/uL (0.30-0.80); Segmented Neut Absolute Manual 0.81 10^3/uL (1.4-6.5)
== END 2024-04-14 01:44 | disposition home or self-care (01) ==
LOC: LAB 01:43
PROVIDERS: PCP Family Medicine; Visit Provider Family Medicine
DX: C90.00 Multiple myeloma not having achieved remission (principal)
CPT/HCPCS: 36415; 80053; 85007; 85027

== ENCOUNTER 2024-04-22 12:00 | Outpatient (REF) | payer MEDICARE, OTHER, SELFPAY ==
[2024-04-22 13:01] LABS: Hemoglobin 7.9 g/dL (14.0-18.0); Mean Corpuscular HGB Conc 33.3 g/dL (29.9-35.2); Mean Corpuscular Hemoglobin 32.8 pg (25.9-34.0); Mean Corpuscular Volume 98.3 fL (80.0-94.0); Mean Platelet Volume 9.6 fL (9.5-13.5); Platelet Count 92 10^3/uL (150-450); Red Blood Count 2.41 10^6/uL (4.70-6.10); Red Cell Distribution Width 20.8 % (11.0-15.0); White Blood Count 2.1 10^3/uL (4.0-11.0)
[2024-04-22 13:15] LABS: Hematocrit 23.7 % (42.0-54.0)
[2024-04-22 13:58] LABS: Alanine Aminotransferase 15 U/L (16-63); Albumin Globulin Ratio 0.4; Albumin Level 2.6 g/dL (3.4-5.0); Alkaline Phosphatase 83 U/L (46-116); Anion Gap 14.7; Aspartate Amino Transferase 7 U/L (15-37); BUN Creatinine Ratio 26.6; Bilirubin Total 0.3 mg/dL (0.2-1.0); Calcium 9.5 mg/dL (8.5-10.1); Carbon Dioxide 23.9 mmol/L (21.0-32.0); Chloride 99 mmol/L (98-107); Estimated GFR (African America 58 (>=60); Estimated GFR (Non-African Ame 48 (>=60); Globulin 6.3 g/dL; Glucose 114 mg/dL (74-106); Potassium 4.6 mmol/L (3.5-5.1); Sodium 133 mmol/L (136-145); Total Protein 8.9 g/dL (6.4-8.2)
[2024-04-22 15:11] LABS: Eosinophils Absolute Manual 0.12 10^3/uL (0.00-0.70); Lymphocytes Absolute Manual 1.11 10^3/uL (1.20-3.80); Segmented Neut Absolute Manual 0.86 10^3/uL (1.4-6.5)
[2024-04-22 15:15] LABS: Hypochromasia 2+
== END 2024-04-22 12:01 | disposition home or self-care (01) ==
LOC: LAB 12:00
PROVIDERS: PCP Family Medicine; Visit Provider Family Medicine
DX: C90.00 Multiple myeloma not having achieved remission (principal); G47.33 Obstructive sleep apnea (adult) (pediatric); E63.9 Nutritional deficiency, unspecified
CPT/HCPCS: 36415; 80053; 85007; 85027

== ENCOUNTER 2024-05-05 05:54 | Outpatient (REF) | payer MEDICARE, OTHER, SELFPAY ==
--- OUTSIDE RECORDS SUMMARY | 2024-05-05 06:02 | XMS_ITS | CCD ---
Author Organization [facility]iniSy[facility] Care Team Providers Care Security Clerk Name Role Phone Corson, Simpson E Primary Care Provider [phone] Corson, Sam Primary Care Provider Erick Wise Attending Provider Ul Santos, Israr Attending Provider Corson, Sam E Primary Care Provider [phone] MURRAY LESTER Admitting Unavailable GRAYSON GAOL Attending Unavailable BILLY VILLA Referring Unavailable CYNDY MADISON Consulting Unavailable BRISTOL, SAM E Primary Care Unavailable UL SANTOS, ISRAR Referring Unavailable BRISTOL, SAM E Primary Care Unavailable UL SANTOS, ISRAR Referring Unavailable BRISTOL, SAM E Primary Care Unavailable Corson, Simpson Attending Provider [phone] Corson, Simpson Primary Care Provider Erick Wise Attending Provider Corson, Simpson Primary Care Provider [phone] Erick Wise Attending Provider Corson Sam Attending Provider [phone] Corson, Sam E Unavailable Unavailable Unavailable BRISTOL, SAM Primary Care Physician Unavailable Unavailable Eros DO Leean Primary Care Provider MD Za Hernández Attending Provider [phone] TRUNG RUGGIERO Consulting Unavailable FERGUSON ., DR NINO Attending Unavailable MARTY ., DR NINO Admitting Unavailable EROS, DR VARGAS Primary Care Unavailable ROXANNE ZAIDI Consulting Unavailable FERUGSON ., DR NINO Attending Unavailable FERGUSON ., [...] Attending Unavailable BRISTOL, DR VARGAS Admitting Unavailable Corson, DO Vargas Primary Care Provider MD Za Hernández Attending Provider PURNIMA DAVIDSON JR Primary Care Unavailable Corson, DO Vargas Primary Care Provider MD Za Hernández Attending Provider Sam Cooney DO Primary Care [facility] ider Eros, Dr. Sam Evans Primary Care [...] Eros, Dr. Sam Evans Primary Care Unavailable Corson, Dr. Sam Evans Primary Care Unavailable Corson, Dr. Sam Evans Primary Care Unavailable Corson, DO Sam Primary Care Provider MD Za Hernández Attending Provider Sam Cooney MD Primary Care Provider GUNNAR [...] CHAVEZ Attending Unavailable GRACE VAZQUEZ Attending Unavailable Corson, DO Sam Primary Care Provider Eros, DO Sam Referring Provider MD Bertha Cuevas Attending Provider SAM COONEY LEN [facility] Care Unav ailable RYAN COBB Admitting Unavailable RYAN COBB Attending Unavailable BRISTOL, SAM NUNES LEN Primary Care Unav ailable Corson, DO Simpson Primary Care Provider [phone] Corson, DO Sam Referring Provider MD Bertha Cuevas Attending Provider TumoDO Damonrick M Emergency Provider Kristian, DO Yazid Admit Provider Kristian, DO Yazid Attending Provider MD Verenice Mario Other Provider MD Vijay Aguilar Attending Provider [phone] Corson, DO Sam Primary Care Provider MD Bertha Cuevas Attending Provider Corson, DO Sam Referring Provider MD Za Hernández Attending Provider [phone] Corson, DO Simpson Referring Provider Corson, DO Simpson Referring Provider ZA HERNÁNDEZ Attending Unavailable BRISTOL, SAM [facility] Primary Care Unav ailable Corson, DO Sam Referring Provider Corson, DO Simpson Referring Provider MD Ratna Nick Primary Care Provider MD Elie Balderrama Admit Provider Ly, DO Estrellita L Other Provider MD Evon Santana Attending Provider Corson, DO Sam Referring Provider [phone] Za Hernández Attending Unavailable Za Hernández Admitting Unavailable Corson, Sam Primary Care Unavailable Verenice Mario Consulting Unavailable Kristian, Yazid Admitting Unavailable Vijay Aguilar Attending Unavailable Corson, Simpson Primary Care Unavailable Estrellita Sharif Consulting Unavailable Evon Santana Attending Unavailable Elie Balderrama Admitting Unavailable Ratna Nick Primary Care Unavailable Za Hernández Admitting Unavailable Za Hernández Attending Unavailable Corson, Simpson Primary Care Unavailable Za Hernández Admitting Unavailable Za Hernández Attending Unavailable [facility] Primary Care Unavailable Za Hernández Attending Unavailable Za Hernández Admitting Unavailable [facility] Primary Care Unavailable Al-Marlara, Endyd Yaser Admitting Unavailabl e Al-Marrawi, Mhd Yaser Attending Unavailabl e ParkRatna jason M Primary Care Unavailable Al-Marlara, Bertha Yaser Attending Unavailabl e Al-Marrawi, Mhd Yaser Admitting Unavailabl e Corson, Simpson Primary Care Unavailable Al-Marwi, Endyd Yaser Attending Unavailabl e Al-Marrawi, Mhd Yaser Admitting Unavailabl e Corson, Simpson Primary Care Unavailable [facility] Referring Unavailable [facility] Primary [facility] Unavailable Za Hernández Attending Unavailable Za Hernández Admitting Unavailable Unavailable Unavailable Unavailable Medications Current Medications Medication Drug Class(es) Dates Sig (Normalized) Sig (Original) acetaminophen 500 mg oral capsule (13 sources) Start: 03-05-2024 take 1000 mg by mouth twice daily Acetaminophen Active 1000 MG PO Twice daily March 05, 2024 12:00am Start: 03-05-2024 take 500 mg by mouth twice daily Acetaminophen Active 500 MG PO Twice daily March 05, 2024 12:00am Start: 08-28-2023 take 1 tablet by renny every six hours as needed acetaminophen (Tylenol) [...] three times daily as needed for pain Fewkdqskmc-WBMD-Tifsigwt 50-325-40 MG Or al Tablet TAKE 1 TABLET 3 TIMES DAILY NEEDED FOR PAIN. Quantity: 0 Refills: 0 Ordered: 18-Jul-2021 DO Start : 18-Jan-2021 Active Start: 05-19-2019 butalbital-sadie taminophen-caffeine (FIORICET, ESGIC) 50-325-40 MG per tablet Take by mouth 0 05/19/2019 Active Start: 05-19-2019 End: 02-21-2024 Zqemfzjbul-Elvdnyxvjrznt-Hwc f Discontinued 1 TAB PO As Directed May 19, 2019 12:00am February 21, 2024 2:58pm [id number] 200 actuat albuterol 0.09 mg/actuat metered dose [...] by mouth every four hours as needed swephvgegq-xdzvfgp-rnoaolop (Fiorinal) 50-325-40 mg capsule Take 1 capsule [...] Status: Ordered take 1 tablet by renny once daily Plavix 75 MG Oral Tablet [...] take 5 mg by mouth once daily Finasteride Active 5 MG PO Daily February 27, 2020 12:00am FLUoxetine 40 mg oral capsule (20 sources) Serotonin Reuptake Inhibitor Start: 4 take 40 mg by mouth once daily Fluoxetine Active 40 MG PO Daily February 21, 2024 12:00am Start: 01-21-2021 take 1 capsule by mo ut once daily FLUoxetine (PROzac) 20 mg capsule [...] Active folic acid 1 mg oral tablet (20 sources) Start: 02-21-2024 take 1 mg by [...] Status: Ordered lenalidomide 25 mg oral capsule (9 sources) Thalidomide Analog Start: 03-07-2024 Lenalidomide (Revlimid) 25 mg capsule Active 25 MG PO Daily March 07, 2024 12:00am TAKE ONE DAILY FOR 21 DAYS AND 7 DAYS OFF.ADULT MALE [facility]#[id number] levothyroxine sodium 0.125 mg oral tablet (20 [...] Active memantine hydrochloride 10 mg oral tablet (20 sources) S-uwzxza-D-aspartate Receptor Antagonist Start: 02-21-2024 take 10 mg [...] succinate 25 mg extended release oral tablet (20 sources) beta-Adrenergic Misael Start: 02-21-2024 take 25 [...] new start ondansetron 4 mg oral tablet (16 sources) Serotonin-3 Receptor Antagonist Start: 03-05-2024 Ondansetron [...] ODT (Zofran-ODT) disintegrating tablet 4 mg pantoprazole 40 mg delayed release oral tablet (4 sources) Proton Pump Inhibitor Start: 04-29-2024 take 1 tablet by mouth twice daily Pantoprazole (Protonix) 40 mg tablet,delayed release (DR/EC) Active 40 MG PO Twice daily 60 April 29, 2024 12:00am Start: 08-29-2023 pantoprazole ( ProtoNix) EC tablet 40 mg QUEtiapine 25 mg oral tablet (11 sources) Atypical Antipsychotic Start: 02-21-2024 take 0.5 [...] 0 Start Date: 07/09/23 Status: Ordered thyroid (detention) 90 mg oral tablet (20 sources) Start: 02-27-2020 take 1 tablet by mouth once daily in the morning Thyroid (Pork) ([place] Thyroid) 90 mg tablet Active 90 MG PO Every morning February 27, 2020 12:00am Start: 12-29-2019 [place] Thyroid Oral, Daily, Refills(s) 0 Start Date: [...] day, # 30 cap(s), Refills(s) 6, Pharmacy: [facility]/pharmacy #[id number], 175, cm, 01/23/22 13:07:00 EDT, Height/Length Dosing, 83, kg, 01/23/22 13:07:00 EDT, Weight Dosing Start Date: 01/23/22 Status: Ordered Start: 01-23-2022 take 1 capsule by mouth once d aily tolterodine 4 mg Cap-ER 4 mg = 1 cap(s), Oral, Daily, # 30 cap(s), Refills(s) 6, Pharmacy: [facility]/pharmacy #[id number], 175, cm, 01/23/22 13:07:00 EDT, Height/Length Dosing, 83, kg, 01/23/22 13:07:00 EDT, Weight Dosing Start Date: 01/23/22 Status: Ordered Start: 09-27-2020 tolterodine 2 mg Cap-ER 2 mg = 1 cap(s), Oral, As Directed, Take one cap in the morning and one at dinnertime., # 60 cap(s), Refills(s) 11, Pharmacy: [facility]/pharmacy #[id number], 175, cm, 12/03/23 15:27:00 EDT, [...] Active vitamin b12 1 mg oral capsule (19 sources) Vitamin B12 Start: 02-21-2024 take 1000 [...] procedure 0 Active take 2 tablets by [facility] every hour, then take 2 tablets by [...] procedure, # 2 tab(s), Refills(s) 0, Pharmacy: [facility]/pharmacy #[id number], 175, cm, 01/23/22 13:07:00 EDT, [...] Active dicyclomine hydrochloride 20 mg oral tablet (20 sources) Anticholinergic Start: 05-19-2019 End: 04-07-2020 take [...] Apply as needed prior to self dilation, [facility]/pharmacy #[id number], 175, cm, 11/03/22 13:03:00 EST, Height/Length Dosing, 82.8, kg, 11/03/22 13:03:00 EST, Weight Dosing Start Date: 12/01/22 Stop Date: 12/01/22 Status: Ordered Start: 12-01-2022 End: 12-01-2022 Glydo 2% topical gel with ap plicator 11 mL 0.2 gm, 10 mL, Topical, As Directed, 30 mL, Refill(s) 6, Apply as needed prior to self dilation, [facility]/pharmacy #[id number], 175, cm, 11/03/22 13:03:00 EST, Height/Length Dosing, 82.8, kg, 11/03/22 13:03:00 EST, Weight Dosing Start Date: 12/01/22 Stop Date: 12/01/22 Status: Ordered Start: 12-01-2022 End: 12-01-2022 Glydo 2% topical gel with ap plicator 11 mL 0.2 gm, 10 mL, Topical, As Directed, 30 mL, Refill(s) 6, Apply as needed prior to self dilation, [facility]/pharmacy #[id number], 175, cm, 11/03/22 13:03:00 EST, Height/Length Dosing, 82.8, kg, 11/03/22 13:03:00 EST, Weight Dosing Start Date: 12/01/22 Stop Date: 12/01/22 Status: Ordered Start: 12-01-2022 End: 12-01-2022 Glydo 2% topical gel with ap plicator 11 mL 0.2 gm, 10 mL, Topical, As Directed, 30 mL, Refill(s) 6, Apply as needed prior to self dilation, [facility]/pharmacy #[id number], 175, cm, 11/03/22 13:03:00 EST, [...] 19, 2019 12:00am February 27, 2020 4:19pm predniSONE 20 mg oral tablet (4 sources) Start: 04-03-2024 End: 04-23-2024 take 20 mg by mouth once daily Prednisone Discontinued 20 MG PO Daily April 03, 2024 12:00am April 23, 2024 8:30am tamsulosin hydrochloride 0.4 mg oral capsule (20 sources) alpha-Adrenergic Misael Start: 01-20-2020 End: 03-05-2024 take 0.4 mg by mouth twice daily Tamsulosin Discontinued 0.4 MG PO Twice daily April 07, 2020 12:00am March 05, 2024 6:44pm Thyroid (Pork) ([place] Thyroid) 90 mg tablet (10 sources) Start: 02-27-2020 End: 03-05-2024 take 1 tablet by mouth once daily in the morning Thyroid (Pork) ([place] Thyroid) 90 mg tablet Discontinued 90 MG [...] 2 12-29-2019 Chronic Deficiency and other anemia (18 sources) Pancytopenia; Translations: [Other pancytopenia] 02-21-2024 Chronic Deficiency and other anemia (20 sources) Other pancytopenia; Translations: [Other pancytopenia] Onset: 4 02-21-2024 Chronic Deficiency and other anemia (20 sources) Anemia; Translations: [Anemia, unspecified] 02-21-2024 Episodic Deficiency and other anemia (20 sources) Anemia, unspecified; Translations: [Anemia, unspecified] Onset: 4 02-21-2024 Episodic Deficiency and other anemia (3 sources) Chronic anemia; Translations: [Anemia, unspecified] 04-27-2024 Episodic Delirium, dementia, and amnestic and other cognitive disorders (20 sources) Alzheimer's disease; Translations: [Alzheimer's disease, unspecified] Onset: 4 03-07-2024 Chronic Diseases of white blood cells (20 sources) Leukopenia; Translations: [Decreased white blood cell count, unspecified] Onset: 4 02-21-2024 Chronic Disorders of lipid metabolism (20 sources) Mixed hyperlipidemia; Translations: [Mixed hyperlipidemia] Onset: 2 08-10-2023 Chronic Esophageal disorders (4 sources) Gastroesophageal reflux disease; Translations: [Gastro-esophageal reflux disease without esophagitis] Onset: 3 09-11-2023 Chronic Essential hypertension (20 sources) Benign essential hypertension; Translations: [Benign essential hypertension] Onset: 1 12-29-2019 Chronic Gastrointestinal hemorrhage (18 sources) Coffee ground vomiting; Translations: [Hematemesis] Onset: 4 04-27-2024 Episodic Genitourinary symptoms and ill-defined conditions (20 sources) Urge incontinence; Translations: [Incontinence without sensory awareness] Onset: 2 Chronic Hyperplasia of prostate (20 sources) Benign prostatic hyperplasia; Translations: [Hypertrophy (benign) of prostate without urinary obstruction and other lower urinary tract symptom (LUTS)] Onset: 2 Chronic Inflammatory conditions of male genital organs (1 source) Chronic prostatitis; Translations: [CHRONIC PROSTATITIS] Onset: 2 Chronic Maintenance chemotherapy; radiotherapy (19 sources) Patient encounter status; Translations: [Encounter for antineoplastic chemotherapy] Onset: 4 03-07-2024 Chronic Mood disorders (7 sources) Major depressive disorder, single episode, unspecified; Translations: [Mood disorder] Onset: 2 10-22-2023 Chronic Multiple myeloma (20 sources) Multiple myeloma; Translations: [Multiple myeloma not [...] medications] Episodic Other and unspecified benign neoplasm (20 sources) History of polyp of colon; Translations: [...] Translations: [Atrial fibrillation] Episodic Other circulatory disease (14 sources) Low blood pressure; Translations: [Hypotension, unspecified] 03-05-2024 Episodic Other circulatory disease (4 sources) Orthostatic hypotension; Translations: [Orthostatic hypotension] Episodic Other circulatory disease (11 sources) Hypotension, unspecified; Translations: [Hypotension, unspecified] Onset: [...] Episodic Other diseases of kidney and ureters (10 sources) Acute renal insufficiency; Translations: [Disorder of kidney and ureter, unspecified] 02-21-2024 Episodic Other diseases of kidney and ureters (20 sources) Disorder of kidney and ureter, unspecified; [...] Onset: 3 07-31-2023 Chronic Other hematologic conditions (10 sources) Protein level - finding; Translations: [Other specified abnormalities of plasma proteins] 02-21-2024 Episodic Other hematologic conditions (10 sources) Other specified abnormalities of plasma proteins; Translations: [Other nonspecific findings on examination of blood] 02-21-2024 Episodic Other inflammatory condition of skin [...] Episodic Other nutritional; endocrine; and metabolic disorders (10 sources) Hypercalcemia; Translations: [Hypercalcemia] 02-27-2024 Chronic Other nutritional; endocrine; and metabolic disorders (20 sources) Hypercalcemia; Translations: [Hypercalcemia] Onset: 4 03-05-2024 [...] to d ocumentation in Social History. 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; Translations: [SNF CURRENT USE OF ASPIRIN] Onset: 09-07-2022 Episodic Other aftercare (1 source) Other penitentiary (current) drug therapy; Translations: [OTH CRIPPLE CHASER CURRENT DRUG THERAPY] Onset: 09-07-2022 Episodic Other [...] 09-07-2022 10-22-2023 Episodic Comment on above: Quit s; Spondylosis; intervertebral disc disorders; other back problems (1 source) Radiculopathy, cervical region; Translations: [RADICULOPATHY CERVICAL REGION] Onset: 02-21-2022 Episodic Unclassified (5 sources) Onset: 08-22-2023 08-22-2023 Results Test Name Value Interpretation Reference Range Facility Anisocytosis [Presence] in B lood by Light microscopyOrdered By: Bertha Cuevas on 04-30-2024 Anisocytosis Ql (Bld) Moderate Normal [facility] Comment on above: Performed By: #### H BSAB, HCV RX PCR, ACMILA, CU, PLT AB S, SPE, RA, HBSAG, HIV SCREEN, KAPPA, SADIE, HBCAB, SKIP SERUM #### [facility] , #### CYTOGENE, T4F, [id number], FISH NOT BLAD, MARÍA, TSH3, FLOW NEOGENOMIC, CMP, RETIC, SCAN CBC, FE and TIBC, LDH #### [facility] [address] [place] [address] [place] Automated basophil %Ordered By: Bertha Cuevas on 04-30-2024 Basophils/100 WBC (Bld) 0.5 % Normal . [facility] Comment on above: Performed By: #### H BSAB, HCV RX PCR, CAMILA, CU, PLT AB S, SPE, RA, HBSAG, HIV SCREEN, KAPPA, SADIE, HBCAB, SKIP SERUM #### [facility] , #### CYTOGENE, T4F, [id number], FISH NOT BLAD, MARÍA, TSH3, FLOW NEOGENOMIC, CMP, RETIC, SCAN CBC, FE and TIBC, LDH #### [facility] [address] [place] [address] [place] Automated basophil countOrde red By: Bertha Cuevas on 04-30-2024 Basophils (Bld) [#/Vol] 0.0 10*3/uL Normal 0.0-0.2 [facility] Comment on above: Performed By: #### H BSAB, HCV RX PCR, CAMILA, CU, PLT AB S, SPE, RA, HBSAG, HIV SCREEN, KAPPA, SADIE, HBCAB, SKIP SERUM #### [facility] , #### CYTOGENE, T4F, [id number], FISH NOT BLAD, MARÍA, TSH3, FLOW NEOGENOMIC, CMP, RETIC, SCAN CBC, FE and TIBC, LDH #### [address] Automated blood monocyte cou ntOrdered By: Bertha Cuevas on 04-30-2024 Monocytes (Bld) [#/Vol] 0.0 10*3/uL Normal 0.0-0.8 [facility] Comment on above: Performed By: #### H BSAB, HCV RX PCR, CAMILA, CU, PLT AB S, SPE, RA, HBSAG, HIV SCREEN, KAPPA, SADIE, HBCAB, SKIP SERUM #### [facility] , #### CYTOGENE, T4F, [id number], FISH NOT BLAD, MARÍA, TSH3, FLOW NEOGENOMIC, CMP, RETIC, SCAN CBC, FE and TIBC, LDH #### [address] Automated eosinophil %Ordere d By: Bertha Cuevas on 04-30-2024 Eosinophils/100 WBC (Bld) 8.9 % Normal . [facility] Comment on above: Performed By: #### H BSAB, HCV RX PCR, CAMILA, CU, PLT AB S, SPE, RA, HBSAG, HIV SCREEN, KAPPA, SADIE, HBCAB, SKIP SERUM #### [facility] , #### CYTOGENE, T4F, [id number], FISH NOT BLAD, MARÍA, TSH3, FLOW NEOGENOMIC, CMP, RETIC, SCAN CBC, FE and TIBC, LDH #### [address] Automated eosinophil countOr dered By: Bertha Cuevas on 04-30-2024 Eosinophils (Bld) [#/Vol] 0.2 10*3/uL Normal 0.0-0.45 [facility] Comment on above: Performed By: #### H BSAB, HCV RX PCR, CAMILA, CU, PLT AB S, SPE, RA, HBSAG, HIV SCREEN, KAPPA, SADIE, HBCAB, SKIP SERUM #### [facility] , #### CYTOGENE, T4F, [id number], FISH NOT BLAD, MARÍA, TSH3, FLOW NEOGENOMIC, CMP, RETIC, SCAN CBC, FE and TIBC, LDH #### [address] Automated monocyte %Ordered By: Bertha Cuevas on 04-30-2024 Monocytes/100 WBC (Bld) 0.7 % Normal . [facility] Comment on above: Performed By: #### H BSAB, HCV RX PCR, CAMILA, CU, PLT AB S, SPE, RA, HBSAG, HIV SCREEN, KAPPA, SADIE, HBCAB, SKIP SERUM #### [facility] , #### CYTOGENE, T4F, [id number], FISH NOT BLAD, MARÍA, TSH3, FLOW NEOGENOMIC, CMP, RETIC, SCAN CBC, FE and TIBC, LDH #### [address] Automated neutrophil %Ordere d By: Bertha Cuevas on 04-30-2024 Neutrophils/100 WBC (Bld) 50.0 % Normal . [facility] Comment on above: Performed By: #### H BSAB, HCV RX PCR, CAMILA, CU, PLT AB S, SPE, RA, HBSAG, HIV SCREEN, KAPPA, SADIE, HBCAB, SKIP SERUM #### [facility] , #### CYTOGENE, T4F, [id number], FISH NOT BLAD, MARÍA, TSH3, FLOW NEOGENOMIC, CMP, RETIC, SCAN CBC, FE and TIBC, LDH #### [address] Erythrocyte distribution wid th [Ratio] by Automated countOrdered By: Bertha Pearce on 04-30-2024 Erythrocyte distribution width (RBC) [Ratio] 20.4 % High 12.0-14.8 [facility] Comment on above: Performed By: #### H BSAB, HCV RX PCR, CAMILA, CU, PLT AB S, SPE, RA, HBSAG, HIV SCREEN, KAPPA, SADIE, HBCAB, SKIP SERUM #### [facility] , #### CYTOGENE, T4F, [id number], FISH NOT BLAD, MARÍA, TSH3, FLOW NEOGENOMIC, CMP, RETIC, SCAN CBC, FE and TIBC, LDH #### [address] Erythrocytes [#/volume] in B lood by Automated countOrdered By: artem Cuevas on 04-30-2024 RBC (Bld) [#/Vol] 2.67 10*6/uL Low 3.90-5.60 [facility] Comment on above: Performed By: #### H BSAB, HCV RX PCR, CAMILA, CU, PLT AB S, SPE, RA, HBSAG, HIV SCREEN, KAPPA, SADIE, HBCAB, SKIP SERUM #### [facility] , #### CYTOGENE, T4F, [id number], FISH NOT BLAD, MARÍA, TSH3, FLOW NEOGENOMIC, CMP, RETIC, SCAN CBC, FE and TIBC, LDH #### [address] Hematocrit [Volume Fraction] of Blood by Automated countOrdered By: artem Pearce on 04-30-2024 Hematocrit (Bld) [Volume fraction] 25.4 % Low 38.8-50.0 [facility] Comment on above: Performed By: #### H BSAB, HCV RX PCR, CAMILA, CU, PLT AB S, SPE, RA, HBSAG, HIV SCREEN, KAPPA, SADIE, HBCAB, SKIP SERUM #### [facility] , #### CYTOGENE, T4F, [id number], FISH NOT BLAD, MARÍA, TSH3, FLOW NEOGENOMIC, CMP, RETIC, SCAN CBC, FE and TIBC, LDH #### [address] Hemoglobin [Mass/volume] in BloodOrdered By: artem Cuevas on 04-30-2024 Hemoglobin (Bld) [Mass/Vol] 8.8 g/dL Low 13.0-17.0 [facility] Comment on above: Performed By: #### H BSAB, HCV RX PCR, CAMILA, CU, PLT AB S, SPE, RA, HBSAG, HIV SCREEN, KAPPA, SADIE, HBCAB, SKIP SERUM #### [facility] , #### CYTOGENE, T4F, [id number], FISH NOT BLAD, MARÍA, TSH3, FLOW NEOGENOMIC, CMP, RETIC, SCAN CBC, FE and TIBC, LDH #### [facility] [address] Leukocytes [#/volume] correc myrtle for nucleated erythrocytes in Blood by Automated counOrdered By: artem Cuevas on 04-30-2024 WBC corrected for nucl RBC Auto (Bld) [#/Vol] 1.8 10*3/uL Low 4.1-10.5 [facility] Leukocytes [#/volume] in Blo od by Automated countOrdered By: artem Cuevas on 04-30-2024 WBC (Bld) [#/Vol] 1.8 10*3/uL Low 4.1-10.5 [facility] Comment on above: Performed By: #### H BSAB, HCV RX PCR, CAMILA, CU, PLT AB S, SPE, RA, HBSAG, HIV SCREEN, KAPPA, SADIE, HBCAB, SKIP SERUM #### [facility] , #### CYTOGENE, T4F, [id number], FISH NOT BLAD, MARÍA, TSH3, FLOW NEOGENOMIC, CMP, RETIC, SCAN CBC, FE and TIBC, LDH #### [facility] [address] Lymphocytes [#/volume] in Bl ood by Automated countOrdered By: artem Cuevas on 04-30-2024 Lymphocytes (Bld) [#/Vol] 0.7 10*3/uL Low 1.00-4.8 [facility] Comment on above: Performed By: #### H BSAB, HCV RX PCR, CAMILA, CU, PLT AB S, SPE, RA, HBSAG, HIV SCREEN, KAPPA, SADIE, HBCAB, SKIP SERUM #### [facility] , #### CYTOGENE, T4F, [id number], FISH NOT BLAD, MARÍA, TSH3, FLOW NEOGENOMIC, CMP, RETIC, SCAN CBC, FE and TIBC, LDH #### [address] Lymphocytes/100 leukocytes i n Blood by Automated countOrdered By: artem Cuevas on 04-30-2024 Lymphocytes/100 WBC (Bld) 39.9 % Normal . [facility] Comment on above: Performed By: #### H BSAB, HCV RX PCR, CAMILA, CU, PLT AB S, SPE, RA, HBSAG, HIV SCREEN, KAPPA, SADIE, HBCAB, SKIP SERUM #### [facility] , #### CYTOGENE, T4F, [id number], FISH NOT BLAD, MARÍA, TSH3, FLOW NEOGENOMIC, CMP, RETIC, SCAN CBC, FE and TIBC, LDH #### [address] MCH [Entitic mass] by Automa myrtle countOrdered By: Bertha Cuevas on 04-30-2024 MCH (RBC) [Entitic mass] 32.9 pg Normal 27.5-35.2 [facility] Comment on above: Performed By: #### H BSAB, HCV RX PCR, CAMILA, CU, PLT AB S, SPE, RA, HBSAG, HIV SCREEN, KAPPA, SADIE, HBCAB, SKIP SERUM #### [facility] , #### CYTOGENE, T4F, [id number], FISH NOT BLAD, MARÍA, TSH3, FLOW NEOGENOMIC, CMP, RETIC, SCAN CBC, FE and TIBC, LDH #### [address] MCHC Auto (RBC) [Mass/Vol]Or dered By: Bertha Cuevas on 04-30-2024 MCHC (RBC) [Mass/Vol] 34.7 g/dL 32.5-35.6 [facility] MCV [Entitic volume] by Auto mated countOrdered By: Bertha Cuevas on 04-30-2024 MCV (RBC) [Entitic vol] 95.0 fL Normal 83.5-101 [facility] [place] Comment on above: Performed By: #### H BSAB, HCV RX PCR, CAMILA, CU, PLT AB S, SPE, RA, HBSAG, HIV SCREEN, KAPPA, SADIE, HBCAB, SKIP SERUM #### [facility] , #### CYTOGENE, T4F, [id number], FISH NOT BLAD, MARÍA, TSH3, FLOW NEOGENOMIC, CMP, RETIC, SCAN CBC, FE and TIBC, LDH #### [facility] [address] [place] [address] [place] Neutrophils [#/volume] in Bl ood by Automated countOrdered By: Bertha Cuevas on 04-30-2024 Neutrophils (Bld) [#/Vol] 0.9 10*3/uL Low 1.8-7.7 [facility] [place] Comment on above: Performed By: #### H BSAB, HCV RX PCR, CAMILA, CU, PLT AB S, SPE, RA, HBSAG, HIV SCREEN, KAPPA, SADEI, HBCAB, SKIP SERUM #### [facility] , #### CYTOGENE, T4F, [id number], FISH NOT BLAD, MARÍA, TSH3, FLOW NEOGENOMIC, CMP, RETIC, SCAN CBC, FE and TIBC, LDH #### [facility] [address] [place] [address] [place] Nucleated erythrocytes [Pres ence] in Blood by Automated countOrdered By: Bertha Cuevas on 04-30-2024 Nucleated RBC Auto Ql (Bld) 0.4 /100{WBC} 0-0.5 [facility] [place] Platelet adequacy [Presence] in Blood by Light microscopyOrdered By: Bertha Pearce on 04-30-2024 Platelets LM Ql (Bld) Decreased Normal [facility] Platelet mean volume [Entiti c volume] in Blood by Automated countOrdered By: Bertha Cuevas on 04-30-2024 Platelet mean volume (Bld) [Entitic vol] 7.6 fL Normal 6.6-10.1 [facility] [place] Comment on above: Performed By: #### H BSAB, HCV RX PCR, CAMILA, CU, PLT AB S, SPE, RA, HBSAG, HIV SCREEN, KAPPA, SADIE, HBCAB, SKIP SERUM #### [facility] , #### CYTOGENE, T4F, [id number], FISH NOT BLAD, MARÍA, TSH3, FLOW NEOGENOMIC, CMP, RETIC, SCAN CBC, FE and TIBC, LDH #### [facility] [address] Platelet morphology finding [Identifier] in BloodOrdered By: Bertha Cuevas on 04-30-2024 Platelet morphology finding Nom (Bld) Normal Normal [facility] [place] Platelets [#/volume] in Bloo d by Automated countOrdered By: Bertha Cuevas on 04-30-2024 Platelets (Bld) [#/Vol] 113 10*3/uL Low 150-450 [facility] [place] Comment on above: Performed By: #### H BSAB, HCV RX PCR, CAMILA, CU, PLT AB S, SPE, RA, HBSAG, HIV SCREEN, KAPPA, SADIE, HBCAB, SKIP SERUM #### [facility] , #### CYTOGENE, T4F, [id number], FISH NOT BLAD, MARÍA, TSH3, FLOW NEOGENOMIC, CMP, RETIC, SCAN CBC, FE and TIBC, LDH #### [facility] [address] RBC morphologyOrdered By: Endy Cuevas on 04-30-2024 RBC morphology finding Nom (Bld) N/A [facility] [place] Scan and CBCon 04-30-2024 Mean Corpuscular HGB Conc 34.7 g/dL Normal 32.5-35.6 [facility] Comment on above: Performed By: #### H BSAB, HCV RX PCR, CAMILA, CU, PLT AB S, SPE, RA, HBSAG, HIV SCREEN, KAPPA, SADIE, HBCAB, SKIP SERUM #### [facility] , #### CYTOGENE, T4F, [id number], FISH NOT BLAD, MARÍA, TSH3, FLOW NEOGENOMIC, CMP, RETIC, SCAN CBC, FE and TIBC, LDH #### [address] NRBC% 0.4 /100{WBC} Normal 0-0.5 [facility] Comment on above: Performed By: #### H BSAB, HCV RX PCR, CAMILA, CU, PLT AB S, SPE, RA, HBSAG, HIV SCREEN, KAPPA, SADIE, HBCAB, SKIP SERUM #### [facility] , #### CYTOGENE, T4F, [id number], FISH NOT BLAD, MARÍA, TSH3, FLOW NEOGENOMIC, CMP, RETIC, SCAN CBC, FE and TIBC, LDH #### [address] Platelet Estimate Decreased Normal Normal [facility] Comment on above: Performed By: #### H BSAB, HCV RX PCR, CAMILA, CU, PLT AB S, SPE, RA, HBSAG, HIV SCREEN, KAPPA, SAIDE, HBCAB, SKIP SERUM #### [facility] , #### CYTOGENE, T4F, [id number], FISH NOT BLAD, MARÍA, TSH3, FLOW NEOGENOMIC, CMP, RETIC, SCAN CBC, FE and TIBC, LDH #### [address] Platelet Morphology Normal Normal Normal [facility] Comment on above: Result Comment: PERF ORMED BY: [place] [address] PATHOLOGIST CRYOGENICS REPAIRER OTTO HARLEY M.D. Performed By: #### H BSAB, HCV RX PCR, CAMILA, CU, PLT AB S, SPE, RA, HBSAG, HIV SCREEN, KAPPA, SADIE, HBCAB, SKIP SERUM #### [facility] , #### CYTOGENE, T4F, [id number], FISH NOT BLAD, MARÍA, TSH3, FLOW NEOGENOMIC, CMP, RETIC, SCAN CBC, FE and TIBC, LDH #### [address] Basic Metabolic Panelon Creatinine Clr Calc Pharmacy 64.52 Normal [facility] Comment on above: Order Comment: draw at 0730 blood finished at 0630 per RN Result Comment: PERF ORMED BY: [place] [address] PATHOLOGIST CRYOGENICS REPAIRER OTTO HARLEY M.D. Performed By: #### H BSAB, HCV RX PCR, CAMILA, CU, PLT AB S, SPE, RA, HBSAG, HIV SCREEN, KAPPA, SADIE, HBCAB, SKIP SERUM #### [facility] , #### CYTOGENE, T4F, [id number], FISH NOT BLAD, MARÍA, TSH3, FLOW NEOGENOMIC, CMP, RETIC, SCAN CBC, FE and TIBC, LDH #### [address] GFR/1.73 sq M.predicted MDRD (S/P/Bld) [Vol rate/Area] mL/min/{1.73_m2} Normal [facility] Comment on above: Order Comment: draw at 0730 blood finished at 0630 per RN Performed By: #### H BSAB, HCV RX PCR, CAMILA, CU, PLT AB S, SPE, RA, HBSAG, HIV SCREEN, KAPPA, SADIE, HBCAB, SKIP SERUM #### [facility] , #### CYTOGENE, T4F, [id number], FISH NOT BLAD, MARÍA, TSH3, FLOW NEOGENOMIC, CMP, RETIC, SCAN CBC, FE and TIBC, LDH #### [address] Calcium [Mass/volume] in Ser um or PlasmaOrdered By: Evon Santana on 04-29-2024 Calcium [Mass/Vol] 9.1 mg/dL Normal 8.6-10.3 [facility] Comment on above: Order Comment: draw at 0730 blood finished at 0630 per RN Performed By: #### H BSAB, HCV RX PCR, CAMILA, CU, PLT AB S, SPE, RA, HBSAG, HIV SCREEN, KAPPA, SADIE, HBCAB, SKIP SERUM #### [facility] , #### CYTOGENE, T4F, [id number], FISH NOT BLAD, MARÍA, TSH3, FLOW NEOGENOMIC, CMP, RETIC, SCAN CBC, FE and TIBC, LDH #### [facility] [address] Carbon dioxide, total [Moles /volume] in Serum or PlasmaOrdered By: Evon Santana on 04-29-2024 CO2 [Moles/Vol] 22.3 mmol/L Normal 21.0-31.0 [facility] Comment on above: Order Comment: draw at 0730 blood finished at 0630 per RN Performed By: #### H BSAB, HCV RX PCR, CAMILA, CU, PLT AB S, SPE, RA, HBSAG, HIV SCREEN, KAPPA, SADIE, HBCAB, SKIP SERUM #### [facility] , #### CYTOGENE, T4F, [id number], FISH NOT BLAD, MARÍA, TSH3, FLOW NEOGENOMIC, CMP, RETIC, SCAN CBC, FE and TIBC, LDH #### [address] Chloride [Moles/volume] in S dustin or PlasmaOrdered By: Evon Santana on 04-29-2024 Chloride [Moles/Vol] 108 mmol/L High 98-107 [facility] Comment on above: Order Comment: draw at 0730 blood finished at 0630 per RN Performed By: #### H BSAB, HCV RX PCR, CAMILA, CU, PLT AB S, SPE, RA, HBSAG, HIV SCREEN, KAPPA, SADIE, HBCAB, SKIP SERUM #### [facility] , #### CYTOGENE, T4F, [id number], FISH NOT BLAD, MARÍA, TSH3, FLOW NEOGENOMIC, CMP, RETIC, SCAN CBC, FE and TIBC, LDH #### [facility] [address] Creatinine [Mass/volume] in Serum or PlasmaOrdered By: Evon Santana on 04-29-2024 Creatinine [Mass/Vol] 0.93 mg/dL Normal 0.70-1.30 [facility] Comment on above: Order Comment: draw at 0730 blood finished at 0630 per RN Performed By: #### H BSAB, HCV RX PCR, CAMILA, CU, PLT AB S, SPE, RA, HBSAG, HIV SCREEN, KAPPA, SADIE, HBCAB, SKIP SERUM #### [facility] , #### CYTOGENE, T4F, [id number], FISH NOT BLAD, MARÍA, TSH3, FLOW NEOGENOMIC, CMP, RETIC, SCAN CBC, FE and TIBC, LDH #### [facility] [address] Erythrocyte distribution wid th [Ratio] by Automated countOrdered By: Evon Santana on 04-29-2024 Erythrocyte distribution width (RBC) [Ratio] 19.7 % High 12.0-14.8 [facility] [place] Comment on above: Order Comment: draw at 0730 blood finished at 0630 per RN Performed By: #### H BSAB, HCV RX PCR, CAMILA, CU, PLT AB S, SPE, RA, HBSAG, HIV SCREEN, KAPPA, SADIE, HBCAB, SKIP SERUM #### [facility] , #### CYTOGENE, T4F, [id number], FISH NOT BLAD, MARÍA, TSH3, FLOW NEOGENOMIC, CMP, RETIC, SCAN CBC, FE and TIBC, LDH #### [facility] [address] Erythrocytes [#/volume] in B lood by Automated countOrdered By: Evon Santana on 04-29-2024 RBC (Bld) [#/Vol] 2.66 10*6/uL Low 3.90-5.60 [facility] Comment on above: Order Comment: draw at 0730 blood finished at 0630 per RN Performed By: #### H BSAB, HCV RX PCR, CAMILA, CU, PLT AB S, SPE, RA, HBSAG, HIV SCREEN, KAPPA, SADIE, HBCAB, SKIP SERUM #### [facility] , #### CYTOGENE, T4F, [id number], FISH NOT BLAD, MARÍA, TSH3, FLOW NEOGENOMIC, CMP, RETIC, SCAN CBC, FE and TIBC, LDH #### [facility] [address] [place] [id number] [facility] Glucose [Mass/volume] in Ser um or PlasmaOrdered By: Evon Santana on 04-29-2024 Glucose [Mass/Vol] 92 mg/dL Normal 70-100 [facility] Comment on above: ADA recommended refe rence rangeRandom Glucose Reference Range is dependent on time and content of last meal. Glucose of more than 200 mg/dL in a nonstressed, ambulatory subject supports the diagnosis of Diabetes Mellitus. Order Comment: draw at 0730 blood finished at 0630 per RN Result Comment: [place] om Glucose Reference Range is dependent on time and content of last meal. Glucose of more than 200 mg/dL in a nonstressed, ambulatory subject supports the diagnosis of Diabetes Mellitus. ADA recommended reference range Performed By: #### H BSAB, HCV RX PCR, CAMILA, CU, PLT AB S, SPE, RA, HBSAG, HIV SCREEN, KAPPA, SADIE, HBCAB, SKIP SERUM #### [facility] , #### CYTOGENE, T4F, [id number], FISH NOT BLAD, MARÍA, TSH3, FLOW NEOGENOMIC, CMP, RETIC, SCAN CBC, FE and TIBC, LDH #### [facility] [address] [place] [id number] [place] Hematocrit [Volume Fraction] of Blood by Automated countOrdered By: Evon Santana on 04-29-2024 Hematocrit (Bld) [Volume fraction] 25.2 % Low 38.8-50.0 [facility] [place] Comment on above: Order Comment: draw at 0730 blood finished at 0630 per RN Performed By: #### H BSAB, HCV RX PCR, CAMILA, CU, PLT AB S, SPE, RA, HBSAG, HIV SCREEN, KAPPA, SADIE, HBCAB, SKIP SERUM #### [facility] , #### CYTOGENE, T4F, [id number], FISH NOT BLAD, MARÍA, TSH3, FLOW NEOGENOMIC, CMP, RETIC, SCAN CBC, FE and TIBC, LDH #### [address] Hemoglobin [Mass/volume] in BloodOrdered By: Evon Santana on 04-29-2024 Hemoglobin (Bld) [Mass/Vol] 8.8 g/dL Low 13.0-17.0 [facility] [place] Comment on above: Order Comment: draw at 0730 blood finished at 0630 per RN Performed By: #### H BSAB, HCV RX PCR, CAMILA, CU, PLT AB S, SPE, RA, HBSAG, HIV SCREEN, KAPPA, SADIE, HBCAB, SKIP SERUM #### [facility] , #### CYTOGENE, T4F, [id number], FISH NOT BLAD, MARÍA, TSH3, FLOW NEOGENOMIC, CMP, RETIC, SCAN CBC, FE and TIBC, LDH #### [address] Hemogram CBC Without Diffon 04-29-2024 Mean Corpuscular HGB Conc 34.9 g/dL Normal 32.5-35.6 [facility] Comment on above: Order Comment: draw at 0730 blood finished at 0630 per RN Performed By: #### H BSAB, HCV RX PCR, CAMILA, CU, PLT AB S, SPE, RA, HBSAG, HIV SCREEN, KAPPA, SADIE, HBCAB, SKIP SERUM #### [facility] , #### CYTOGENE, T4F, [id number], FISH NOT BLAD, MARÍA, TSH3, FLOW NEOGENOMIC, CMP, RETIC, SCAN CBC, FE and TIBC, LDH #### [address] WBC (Bld) [#/Vol] 2.0 10*3/uL Low 4.1-10.5 [facility] Comment on above: Order Comment: draw at 0730 blood finished at 0630 per RN Performed By: #### H BSAB, HCV RX PCR, CAMILA, CU, PLT AB S, SPE, RA, HBSAG, HIV SCREEN, KAPPA, SADIE, HBCAB, SKIP SERUM #### [facility] , #### CYTOGENE, T4F, [id number], FISH NOT BLAD, MARÍA, TSH3, FLOW NEOGENOMIC, CMP, RETIC, SCAN CBC, FE and TIBC, LDH #### [facility] [address] Leukocytes [#/volume] correc myrtle for nucleated erythrocytes in Blood by Automated counOrdered By: Evon Santana on 04-29-2024 WBC corrected for nucl RBC Auto (Bld) [#/Vol] 2.0 10*3/uL Low 4.1-10.5 [facility] [place] MCH [Entitic mass] by Automa myrtle countOrdered By: Evon Santana on 04-29-2024 MCH (RBC) [Entitic mass] 32.9 pg Normal 27.5-35.2 [facility] [place] Comment on above: Order Comment: draw at 0730 blood finished at 0630 per RN Performed By: #### H BSAB, HCV RX PCR, CAMILA, CU, PLT AB S, SPE, RA, HBSAG, HIV SCREEN, KAPPA, SADIE, HBCAB, SKIP SERUM #### [facility] , #### CYTOGENE, T4F, [id number], FISH NOT BLAD, MARÍA, TSH3, FLOW NEOGENOMIC, CMP, RETIC, SCAN CBC, FE and TIBC, LDH #### [address] MCHC Auto (RBC) [Mass/Vol]Or dered By: Evon Santana on 04-29-2024 MCHC (RBC) [Mass/Vol] 34.9 g/dL 32.5-35.6 [facility] MCV [Entitic volume] by Auto mated countOrdered By: Evon Santana on 04-29-2024 MCV (RBC) [Entitic vol] 94.4 fL Normal 83.5-101 [facility] [place] Comment on above: Order Comment: draw at 0730 blood finished at 0630 per RN Performed By: #### H BSAB, HCV RX PCR, CAMILA, CU, PLT AB S, SPE, RA, HBSAG, HIV SCREEN, KAPPA, SADIE, HBCAB, SKIP SERUM #### [facility] , #### CYTOGENE, T4F, [id number], FISH NOT BLAD, MARÍA, TSH3, FLOW NEOGENOMIC, CMP, RETIC, SCAN CBC, FE and TIBC, LDH #### [facility] [address] No Panel InformationOrdered By: Evon Santana on 04-29-2024 Estimated GFR (CKD-EPI) > 60.0 mL/Min [facility] [place] [facility] Creatinine Clearance (Chem 64.52 [facility] [place] Platelet mean volume [Entiti c volume] in Blood by Automated countOrdered By: Evon Snatana on 04-29-2024 Platelet mean volume (Bld) [Entitic vol] 6.7 fL Normal 6.6-10.1 [facility] [place] Comment on above: Order Comment: draw at 0730 blood finished at 0630 per RN Result Comment: PERF ORMED BY: [place] [address] PATHOLOGIST CRYOGENICS REPAIRER OTTO HARLEY M.D. Performed By: #### H BSAB, HCV RX PCR, CAMILA, CU, PLT AB S, SPE, RA, HBSAG, HIV SCREEN, KAPPA, SADIE, HBCAB, SKIP SERUM #### [facility] , #### CYTOGENE, T4F, [id number], FISH NOT BLAD, MARÍA, TSH3, FLOW NEOGENOMIC, CMP, RETIC, SCAN CBC, FE and TIBC, LDH #### [facility] [address] [place] [address] Platelets [#/volume] in Bloo d by Automated countOrdered By: Evon Santana on 04-29-2024 Platelets (Bld) [#/Vol] 99 10*3/uL Low 150-450 [facility] [place] Comment on above: Order Comment: draw at 0730 blood finished at 0630 per RN Performed By: #### H BSAB, HCV RX PCR, CAMILA, CU, PLT AB S, SPE, RA, HBSAG, HIV SCREEN, KAPPA, SADIE, HBCAB, SKIP SERUM #### [facility] , #### CYTOGENE, T4F, [id number], FISH NOT BLAD, MARÍA, TSH3, FLOW NEOGENOMIC, CMP, RETIC, SCAN CBC, FE and TIBC, LDH #### [address] Potassium [Moles/volume] in Serum or PlasmaOrdered By: Evon Wastony on 04-29-2024 Potassium [Moles/Vol] 4.3 mmol/L Normal 3.5-5.1 [facility] Comment on above: Order Comment: draw at 0730 blood finished at 0630 per RN Performed By: #### H BSAB, HCV RX PCR, CAMILA, CU, PLT AB S, SPE, RA, HBSAG, HIV SCREEN, KAPPA, SADIE, HBCAB, SKIP SERUM #### [facility] , #### CYTOGENE, T4F, [id number], FISH NOT BLAD, MARÍA, TSH3, FLOW NEOGENOMIC, CMP, RETIC, SCAN CBC, FE and TIBC, LDH #### [address] Serum or plasma anion gap de terminationOrdered By: Evon Santana on 04-29-2024 Anion gap [Moles/Vol] 13.0 mmol/L Normal 6.0-15.0 [facility] Comment on above: Order Comment: draw at 0730 blood finished at 0630 per RN Performed By: #### H BSAB, HCV RX PCR, CAMILA, CU, PLT AB S, SPE, RA, HBSAG, HIV SCREEN, KAPPA, SADIE, HBCAB, SKIP SERUM #### [facility] , #### CYTOGENE, T4F, [id number], FISH NOT BLAD, MARÍA, TSH3, FLOW NEOGENOMIC, CMP, RETIC, SCAN CBC, FE and TIBC, LDH #### [address] [place] [address] [place] Sodium [Moles/volume] in Ser um or PlasmaOrdered By: Evon Santana on 04-29-2024 Sodium [Moles/Vol] 139 mmol/L Normal 136-145 [facility] Comment on above: Order Comment: draw at 0730 blood finished at 0630 per RN Performed By: #### H BSAB, HCV RX PCR, CAMILA, CU, PLT AB S, SPE, RA, HBSAG, HIV SCREEN, KAPPA, SADIE, HBCAB, SKIP SERUM #### [facility] , #### CYTOGENE, T4F, [id number], FISH NOT BLAD, MARÍA, TSH3, FLOW NEOGENOMIC, CMP, RETIC, SCAN CBC, FE and TIBC, LDH #### [facility] [address] [place] [id number] [place] Urea nitrogen [Mass/volume] in Serum or PlasmaOrdered By: Daracmlashon Grahamalistair on 04-29-2024 Urea nitrogen [Mass/Vol] 21 mg/dL Normal 7-25 [facility] [place] Comment on above: Order Comment: draw at 0730 blood finished at 0630 per RN Performed By: #### H BSAB, HCV RX PCR, CAMILA, CU, PLT AB S, SPE, RA, HBSAG, HIV SCREEN, KAPPA, SADIE, HBCAB, SKIP SERUM #### [facility] , #### CYTOGENE, T4F, [id number], FISH NOT BLAD, MARÍA, TSH3, FLOW NEOGENOMIC, CMP, RETIC, SCAN CBC, FE and TIBC, LDH #### [facility] [address] [place] [id number] [facility] Activated partial thrombopla stin time (aPTT) in platelet poor plasma by coagulation aOrdered By: Jc Johnson on 04-28-2024 aPTT Coag (PPP) [Time] 26.0 s 25.1-36.5 [facility] Comment on above: A hematocrit value g reater than 55% may lead to inaccurate results in coagulation testing. Patients having hematocrit values >55% require a special collection tube for coagulation studies. Please contact the laboratory at [phone] for redraw instructions. Anisocytosis [Presence] in B lood by Light microscopyOrdered By: Jc Johnson on 04-28-2024 Anisocytosis Ql (Bld) Marked Normal [facility] Comment on above: Performed By: #### H BSAB, HCV RX PCR, CAMILA, CU, PLT AB S, SPE, RA, HBSAG, HIV SCREEN, KAPPA, SADIE, HBCAB, SKIP SERUM #### [facility] , #### CYTOGENE, T4F, [id number], FISH NOT BLAD, MARÍA, TSH3, FLOW NEOGENOMIC, CMP, RETIC, SCAN CBC, FE and TIBC, LDH #### [facility] [address] [place] [address] [place] Antibody Identificationon Antibody Identification CD38 Normal [facility] Automated basophil %Ordered By: Jc Johnson on 04-28-2024 Basophils/100 WBC (Bld) 0.5 % Normal . [facility] [place] Comment on above: Performed By: #### H BSAB, HCV RX PCR, CAMILA, CU, PLT AB S, SPE, RA, HBSAG, HIV SCREEN, KAPPA, SADIE, HBCAB, SKIP SERUM #### [facility] , #### CYTOGENE, T4F, [id number], FISH NOT BLAD, MARÍA, TSH3, FLOW NEOGENOMIC, CMP, RETIC, SCAN CBC, FE and TIBC, LDH #### [facility] [address] Automated basophil countOrde red By: Jc Johnson on 04-28-2024 Basophils (Bld) [#/Vol] 0.0 10*3/uL Normal 0.0-0.2 [facility] [place] Comment on above: Performed By: #### H BSAB, HCV RX PCR, CAMILA, CU, PLT AB S, SPE, RA, HBSAG, HIV SCREEN, KAPPA, SADIE, HBCAB, SKIP SERUM #### [facility] , #### CYTOGENE, T4F, [id number], FISH NOT BLAD, MARÍA, TSH3, FLOW NEOGENOMIC, CMP, RETIC, SCAN CBC, FE and TIBC, LDH #### [address] Automated blood monocyte cou ntOrdered By: Jc Johnson on 04-28-2024 Monocytes (Bld) [#/Vol] 0.0 10*3/uL Normal 0.0-0.8 [facility] [place] Comment on above: Performed By: #### H BSAB, HCV RX PCR, CAMILA, CU, PLT AB S, SPE, RA, HBSAG, HIV SCREEN, KAPPA, SADIE, HBCAB, SKIP SERUM #### [facility] , #### CYTOGENE, T4F, [id number], FISH NOT BLAD, MARÍA, TSH3, FLOW NEOGENOMIC, CMP, RETIC, SCAN CBC, FE and TIBC, LDH #### [address] Automated eosinophil %Ordere d By: Jc Johnson on 04-28-2024 Eosinophils/100 WBC (Bld) 9.2 % Normal . [facility] [place] Comment on above: Performed By: #### H BSAB, HCV RX PCR, CAMILA, CU, PLT AB S, SPE, RA, HBSAG, HIV SCREEN, KAPPA, SADIE, HBCAB, SKIP SERUM #### [facility] , #### CYTOGENE, T4F, [id number], FISH NOT BLAD, MARÍA, TSH3, FLOW NEOGENOMIC, CMP, RETIC, SCAN CBC, FE and TIBC, LDH #### [address] Automated eosinophil countOr dered By: Jc Johnson on 04-28-2024 Eosinophils (Bld) [#/Vol] 0.2 10*3/uL Normal 0.0-0.45 [facility] [place] Comment on above: Performed By: #### H BSAB, HCV RX PCR, CAMILA, CU, PLT AB S, SPE, RA, HBSAG, HIV SCREEN, KAPPA, SADIE, HBCAB, SKIP SERUM #### [facility] , #### CYTOGENE, T4F, [id number], FISH NOT BLAD, MARÍA, TSH3, FLOW NEOGENOMIC, CMP, RETIC, SCAN CBC, FE and TIBC, LDH #### [address] Automated monocyte %Ordered By: Jc Johnson on 04-28-2024 Monocytes/100 WBC (Bld) 1.1 % Normal . [facility] [place] Comment on above: Performed By: #### H BSAB, HCV RX PCR, CAMILA, CU, PLT AB S, SPE, RA, HBSAG, HIV SCREEN, KAPPA, SADIE, HBCAB, SKIP SERUM #### [facility] , #### CYTOGENE, T4F, [id number], FISH NOT BLAD, MARÍA, TSH3, FLOW NEOGENOMIC, CMP, RETIC, SCAN CBC, FE and TIBC, LDH #### [address] Automated neutrophil %Ordere d By: Jc Johnson on 04-28-2024 Neutrophils/100 WBC (Bld) 55.6 % Normal . [facility] [place] Comment on above: Performed By: #### H BSAB, HCV RX PCR, CAMILA, CU, PLT AB S, SPE, RA, HBSAG, HIV SCREEN, KAPPA, SADIE, HBCAB, SKIP SERUM #### [facility] , #### CYTOGENE, T4F, [id number], FISH NOT BLAD, MARÍA, TSH3, FLOW NEOGENOMIC, CMP, RETIC, SCAN CBC, FE and TIBC, LDH #### [address] Basic Metabolic Panelon 08-0 Anion gap [Moles/Vol] 11.4 mmol/L Normal 6.0-15.0 [facility] Comment on above: Performed By: #### H BSAB, HCV RX PCR, CAMILA, CU, PLT AB S, SPE, RA, HBSAG, HIV SCREEN, KAPPA, SADIE, HBCAB, SKIP SERUM #### [facility] , #### CYTOGENE, T4F, [id number], FISH NOT BLAD, MARÍA, TSH3, FLOW NEOGENOMIC, CMP, RETIC, SCAN CBC, FE and TIBC, LDH #### [address] Calcium [Mass/Vol] 8.7 mg/dL Normal 8.6-10.3 [facility] Comment on above: Performed By: #### H BSAB, HCV RX PCR, CAMILA, CU, PLT AB S, SPE, RA, HBSAG, HIV SCREEN, KAPPA, SADIE, HBCAB, SKIP SERUM #### [facility] , #### CYTOGENE, T4F, [id number], FISH NOT BLAD, MARÍA, TSH3, FLOW NEOGENOMIC, CMP, RETIC, SCAN CBC, FE and TIBC, LDH #### [address] Chloride [Moles/Vol] 107 mmol/L Normal 98-107 [facility] Comment on above: Performed By: #### H BSAB, HCV RX PCR, CAMILA, CU, PLT AB S, SPE, RA, HBSAG, HIV SCREEN, KAPPA, SADIE, HBCAB, SKIP SERUM #### [facility] , #### CYTOGENE, T4F, [id number], FISH NOT BLAD, MARÍA, TSH3, FLOW NEOGENOMIC, CMP, RETIC, SCAN CBC, FE and TIBC, LDH #### [address] CO2 [Moles/Vol] 24.6 mmol/L Normal 21.0-31.0 [facility] Comment on above: Performed By: #### H BSAB, HCV RX PCR, CAMILA, CU, PLT AB S, SPE, RA, HBSAG, HIV SCREEN, KAPPA, SADIE, HBCAB, SKIP SERUM #### [facility] , #### CYTOGENE, T4F, [id number], FISH NOT BLAD, MARÍA, TSH3, FLOW NEOGENOMIC, CMP, RETIC, SCAN CBC, FE and TIBC, LDH #### [address] Creatinine [Mass/Vol] 0.97 mg/dL Normal 0.70-1.30 [facility] Comment on above: Performed By: #### H BSAB, HCV RX PCR, CAMILA, CU, PLT AB S, SPE, RA, HBSAG, HIV SCREEN, KAPPA, SADIE, HBCAB, SKIP SERUM #### [facility] , #### CYTOGENE, T4F, [id number], FISH NOT BLAD, MARÍA, TSH3, FLOW NEOGENOMIC, CMP, RETIC, SCAN CBC, FE and TIBC, LDH #### [address] Creatinine Clr Calc Pharmacy 64.15 Normal [facility] Comment on above: Result Comment: PERF ORMED BY: [place] [address] PATHOLOGIST [employer]YOGENICS REPAIRER OTTO HARLEY M.D. Performed By: #### H BSAB, HCV RX PCR, CAMILA, CU, PLT AB S, SPE, RA, HBSAG, HIV SCREEN, KAPPA, SADIE, HBCAB, SKIP SERUM #### [facility] , #### CYTOGENE, T4F, [id number], FISH NOT BLAD, MARÍA, TSH3, FLOW NEOGENOMIC, CMP, RETIC, SCAN CBC, FE and TIBC, LDH #### [address] GFR/1.73 sq M.predicted MDRD (S/P/Bld) [Vol rate/Area] mL/min/{1.73_m2} Normal [facility] Comment on above: Performed By: #### H BSAB, HCV RX PCR, CAMILA, CU, PLT AB S, SPE, RA, HBSAG, HIV SCREEN, KAPPA, SADIE, HBCAB, SKIP SERUM #### [facility] , #### CYTOGENE, T4F, [id number], FISH NOT BLAD, MARÍA, TSH3, FLOW NEOGENOMIC, CMP, RETIC, SCAN CBC, FE and TIBC, LDH #### [address] Glucose [Mass/Vol] 90 mg/dL Normal 70-100 [facility] Comment on above: Result Comment: [facility][note 3] Glucose Reference Range is dependent on time and content of last meal. Glucose of more than 200 mg/dL in a nonstressed, ambulatory subject supports the diagnosis of Diabetes Mellitus. ADA recommended reference range Performed By: #### H BSAB, HCV RX PCR, CAMILA, CU, PLT AB S, SPE, RA, HBSAG, HIV SCREEN, KAPPA, SADIE, HBCAB, SKIP SERUM #### [facility] , #### CYTOGENE, T4F, [id number], FISH NOT BLAD, MARÍA, TSH3, FLOW NEOGENOMIC, CMP, RETIC, SCAN CBC, FE and TIBC, LDH #### [address] Potassium [Moles/Vol] 4.0 mmol/L Normal 3.5-5.1 [facility] Comment on above: Performed By: #### H BSAB, HCV RX PCR, CAMILA, CU, PLT AB S, SPE, RA, HBSAG, HIV SCREEN, KAPPA, SADIE, HBCAB, SKIP SERUM #### [facility] , #### CYTOGENE, T4F, [id number], FISH NOT BLAD, MARÍA, TSH3, FLOW NEOGENOMIC, CMP, RETIC, SCAN CBC, FE and TIBC, LDH #### [address] Sodium [Moles/Vol] 139 mmol/L Normal 136-145 [facility] Comment on above: Performed By: #### H BSAB, HCV RX PCR, CAMILA, CU, PLT AB S, SPE, RA, HBSAG, HIV SCREEN, KAPPA, SADIE, HBCAB, SKIP SERUM #### [facility] , #### CYTOGENE, T4F, [id number], FISH NOT BLAD, MARÍA, TSH3, FLOW NEOGENOMIC, CMP, RETIC, SCAN CBC, FE and TIBC, LDH #### [address] Urea nitrogen [Mass/Vol] 31 mg/dL High 7-25 [facility] Comment on above: Performed By: #### H BSAB, HCV RX PCR, CAMILA, CU, PLT AB S, SPE, RA, HBSAG, HIV SCREEN, KAPPA, SADIE, HBCAB, SKIP SERUM #### [facility] , #### CYTOGENE, T4F, [id number], FISH NOT BLAD, MARÍA, TSH3, FLOW NEOGENOMIC, CMP, RETIC, SCAN CBC, FE and TIBC, LDH #### [facility] [address] INR in Platelet poor plasma by Coagulation assayOrdered By: Jc Johnson on 04-28-2024 INR Coag (PPP) [Relative time] 1.2 {INR} Normal [facility] Comment on above: INR Therapeutic Rang e [...] valves: 3 - 4.5 Performed By: #### H BSAB, HCV RX PCR, CAMILA, CU, PLT AB S, SPE, RA, HBSAG, HIV SCREEN, KAPPA, SADIE, HBCAB, SKIP SERUM #### [facility] , #### CYTOGENE, T4F, [id number], FISH NOT BLAD, MARÍA, TSH3, FLOW NEOGENOMIC, CMP, RETIC, SCAN CBC, FE and TIBC, LDH #### [facility] [address] [place] [id number] [place] Leukocytes [#/volume] in Blo od by Automated countOrdered By: Jc Johnson on 04-28-2024 WBC (Bld) [#/Vol] 2.2 10*3/uL Low 4.1-10.5 [facility] Comment on above: Performed By: #### H BSAB, HCV RX PCR, CAMILA, CU, PLT AB S, SPE, RA, HBSAG, HIV SCREEN, KAPPA, SADIE, HBCAB, SKIP SERUM #### [facility] , #### CYTOGENE, T4F, [id number], FISH NOT BLAD, MARÍA, TSH3, FLOW NEOGENOMIC, CMP, RETIC, SCAN CBC, FE and TIBC, LDH #### [facility] [address] [place] [address] [place] Lymphocytes [#/volume] in Bl ood by Automated countOrdered By: Jc Johnson on 04-28-2024 Lymphocytes (Bld) [#/Vol] 0.7 10*3/uL Low 1.00-4.8 [facility] Comment on above: Performed By: #### H BSAB, HCV RX PCR, CAMILA, CU, PLT AB S, SPE, RA, HBSAG, HIV SCREEN, KAPPA, SADIE, HBCAB, SKIP SERUM #### [facility] , #### CYTOGENE, T4F, [id number], FISH NOT BLAD, MARÍA, TSH3, FLOW NEOGENOMIC, CMP, RETIC, SCAN CBC, FE and TIBC, LDH #### [facility] [address] [place] [address] [place] Lymphocytes/100 leukocytes i n Blood by Automated countOrdered By: Jc Johnson on 04-28-2024 Lymphocytes/100 WBC (Bld) 33.6 % Normal . [facility] Comment on above: Performed By: #### H BSAB, HCV RX PCR, CAMILA, CU, PLT AB S, SPE, RA, HBSAG, HIV SCREEN, KAPPA, SADIE, HBCAB, SKIP SERUM #### [facility] , #### CYTOGENE, T4F, [id number], FISH NOT BLAD, MARÍA, TSH3, FLOW NEOGENOMIC, CMP, RETIC, SCAN CBC, FE and TIBC, LDH #### [facility] [address] [place] [id number] [facility] Neutrophils [#/volume] in Bl ood by Automated countOrdered By: Jc Johnson on 04-28-2024 Neutrophils (Bld) [#/Vol] 1.2 10*3/uL Low 1.8-7.7 [facility] Comment on above: Performed By: #### H BSAB, HCV RX PCR, CAMILA, CU, PLT AB S, SPE, RA, HBSAG, HIV SCREEN, KAPPA, SADIE, HBCAB, SKIP SERUM #### [facility] , #### CYTOGENE, T4F, [id number], FISH NOT BLAD, MARÍA, TSH3, FLOW NEOGENOMIC, CMP, RETIC, SCAN CBC, FE and TIBC, LDH #### [facility] [address] [place] [id number] [facility] Nucleated erythrocytes [Pres ence] in Blood by Automated countOrdered By: Jc Johnson on 04-28-2024 Nucleated RBC Auto Ql (Bld) 0.0 /100{WBC} 0-0.5 [facility] Ovalocyte detectionOrdered B y: Jc Johnson on 04-28-2024 Ovalocytes LM Ql (Bld) Slight [facility] Partial Thromboplastin Timeo n 04-28-2024 aPTT Coag (Bld) [Time] 26.0 s Normal 25.1-36.5 [facility] Comment on above: Result Comment: A he matocrit value greater than 55% may lead to inaccurate results in coagulation testing. Patients having hematocrit values >55% require a special collection tube for coagulation studies. Please contact the laboratory at [phone] for redraw instructions. PERFORMED BY: [place] [address] PATHOLOGIST CRYOGENICS REPAIRER OTTO HARLEY M.D. Performed By: #### H BSAB, HCV RX PCR, CAMILA, CU, PLT AB S, SPE, RA, HBSAG, HIV SCREEN, KAPPA, SADIE, HBCAB, SKIP SERUM #### [facility] , #### CYTOGENE, T4F, [id number], FISH NOT BLAD, MARÍA, TSH3, FLOW NEOGENOMIC, CMP, RETIC, SCAN CBC, FE and TIBC, LDH #### [facility] [address] Platelet adequacy [Presence] in Blood by Light microscopyOrdered By: Jc Johnson on 04-28-2024 Platelets LM Ql (Bld) Decreased Normal [facility] Platelet morphology finding [Identifier] in BloodOrdered By: Jc Johnson on 04-28-2024 Platelet morphology finding Nom (Bld) Normal Normal [facility] Poikilocytosis [Presence] in Blood by Light microscopyOrdered By: Jc Johnson on 04-28-2024 Poikilocytosis LM Ql (Bld) Moderate [facility] Polychromasia [Presence] in Blood by Light microscopyOrdered By: Jc Johnson on 04-28-2024 Polychromasia LM Ql (Bld) Slight [facility] Prothrombin time (PT)Ordered By: Jc Johnson on 04-28-2024 PT Coag (PPP) [Time] 13.3 s High 9.0-12.9 [facility] Comment on above: A hematocrit value g reater than 55% may lead to inaccurate results in coagulation testing. Patients having hematocrit values >55% require a special collection tube for coagulation studies. Please contact the laboratory at [phone] for redraw instructions. Result Comment: A he matocrit value greater than 55% may lead to inaccurate results in coagulation testing. Patients having hematocrit values >55% require a special collection tube for coagulation studies. Please contact the laboratory at [phone] for redraw instructions. Performed By: #### H BSAB, HCV RX PCR, CAMILA, CU, PLT AB S, SPE, RA, HBSAG, HIV SCREEN, KAPPA, SADIE, HBCAB, SKIP SERUM #### [facility] , #### CYTOGENE, T4F, [id number], FISH NOT BLAD, MARÍA, TSH3, FLOW NEOGENOMIC, CMP, RETIC, SCAN CBC, FE and TIBC, LDH #### [facility] [address] RBC morphologyOrdered By: Fr antelmo Johnson on 04-28-2024 RBC morphology finding Nom (Bld) N/A [facility] Scan and CBCon 04-28-2024 Erythrocyte distribution width (RBC) [Ratio] 25.2 % High 12.0-14.8 [facility] Comment on above: Performed By: #### H BSAB, HCV RX PCR, CAMILA, CU, PLT AB S, SPE, RA, HBSAG, HIV SCREEN, KAPPA, SADIE, HBCAB, SKIP SERUM #### [facility] , #### CYTOGENE, T4F, [id number], FISH NOT BLAD, MARÍA, TSH3, FLOW NEOGENOMIC, CMP, RETIC, SCAN CBC, FE and TIBC, LDH #### [address] Hematocrit (Bld) [Volume fraction] 17.0 % Off scale low 38.8-50.0 [facility] Comment on above: Result Comment: Crit ical value result called at 0735 on 04/28/24 Performed By: #### H BSAB, HCV RX PCR, CAMILA, CU, PLT AB S, SPE, RA, HBSAG, HIV SCREEN, KAPPA, SADIE, HBCAB, SKIP SERUM #### [facility] , #### CYTOGENE, T4F, [id number], FISH NOT BLAD, MARÍA, TSH3, FLOW NEOGENOMIC, CMP, RETIC, SCAN CBC, FE and TIBC, LDH #### [address] Hemoglobin (Bld) [Mass/Vol] 6.0 g/dL Low 13.0-17.0 [facility] Comment on above: Performed By: #### H BSAB, HCV RX PCR, CAMILA, CU, PLT AB S, SPE, RA, HBSAG, HIV SCREEN, KAPPA, SADIE, HBCAB, SKIP SERUM #### [facility] , #### CYTOGENE, T4F, [id number], FISH NOT BLAD, MARÍA, TSH3, FLOW NEOGENOMIC, CMP, RETIC, SCAN CBC, FE and TIBC, LDH #### [address] MCH (RBC) [Entitic mass] 34.4 pg Normal 27.5-35.2 [facility] Comment on above: Performed By: #### H BSAB, HCV RX PCR, CAMILA, CU, PLT AB S, SPE, RA, HBSAG, HIV SCREEN, KAPPA, SADIE, HBCAB, SKIP SERUM #### [facility] , #### CYTOGENE, T4F, [id number], FISH NOT BLAD, MARÍA, TSH3, FLOW NEOGENOMIC, CMP, RETIC, SCAN CBC, FE and TIBC, LDH #### [address] MCV (RBC) [Entitic vol] 98.0 fL Normal 83.5-101 [facility] Comment on above: Performed By: #### H BSAB, HCV RX PCR, CAMILA, CU, PLT AB S, SPE, RA, HBSAG, HIV SCREEN, KAPPA, SADIE, HBCAB, SKIP SERUM #### [facility] , #### CYTOGENE, T4F, [id number], FISH NOT BLAD, MARÍA, TSH3, FLOW NEOGENOMIC, CMP, RETIC, SCAN CBC, FE and TIBC, LDH #### [address] Mean Corpuscular HGB Conc 35.1 g/dL Normal 32.5-35.6 [facility] Comment on above: Performed By: #### H BSAB, HCV RX PCR, CAMILA, CU, PLT AB S, SPE, RA, HBSAG, HIV SCREEN, KAPPA, SADIE, HBCAB, SKIP SERUM #### [facility] , #### CYTOGENE, T4F, [id number], FISH NOT BLAD, MARÍA, TSH3, FLOW NEOGENOMIC, CMP, RETIC, SCAN CBC, FE and TIBC, LDH #### [address] NRBC% 0.0 /100{WBC} Normal 0-0.5 [facility] Comment on above: Performed By: #### H BSAB, HCV RX PCR, CAMILA, CU, PLT AB S, SPE, RA, HBSAG, HIV SCREEN, KAPPA, SADIE, HBCAB, SKIP SERUM #### [facility] , #### CYTOGENE, T4F, [id number], FISH NOT BLAD, MARÍA, TSH3, FLOW NEOGENOMIC, CMP, RETIC, SCAN CBC, FE and TIBC, LDH #### [facility] [address] Ovalocytes Slight Normal [facility] Comment on above: Performed By: #### H BSAB, HCV RX PCR, CAMILA, CU, PLT AB S, SPE, RA, HBSAG, HIV SCREEN, KAPPA, SADIE, HBCAB, SKIP SERUM #### [facility] , #### CYTOGENE, T4F, [id number], FISH NOT BLAD, MARÍA, TSH3, FLOW NEOGENOMIC, CMP, RETIC, SCAN CBC, FE and TIBC, LDH #### [facility] [address] Platelet Estimate Decreased Normal Normal [facility] Comment on above: Performed By: #### H BSAB, HCV RX PCR, CAMILA, CU, PLT AB S, SPE, RA, HBSAG, HIV SCREEN, KAPPA, SADIE, HBCAB, SKIP SERUM #### [facility] , #### CYTOGENE, T4F, [id number], FISH NOT BLAD, MARÍA, TSH3, FLOW NEOGENOMIC, CMP, RETIC, SCAN CBC, FE and TIBC, LDH #### [facility] [address] Platelet mean volume (Bld) [Entitic vol] 6.5 fL Low 6.6-10.1 [facility] Comment on above: Performed By: #### H BSAB, HCV RX PCR, CAMILA, CU, PLT AB S, SPE, RA, HBSAG, HIV SCREEN, KAPPA, SADIE, HBCAB, SKIP SERUM #### [facility] , #### CYTOGENE, T4F, [id number], FISH NOT BLAD, MARÍA, TSH3, FLOW NEOGENOMIC, CMP, RETIC, SCAN CBC, FE and TIBC, LDH #### [address] Platelet Morphology Normal Normal Normal [facility] Comment on above: Result Comment: PERF ORMED BY: [place] [address] PATHOLOGIST CRYOGENICS REPAIRER OTTO HARLEY M.D. Performed By: #### H BSAB, HCV RX PCR, CAMILA, CU, PLT AB S, SPE, RA, HBSAG, HIV SCREEN, KAPPA, SADIE, HBCAB, SKIP SERUM #### [facility] , #### CYTOGENE, T4F, [id number], FISH NOT BLAD, MARÍA, TSH3, FLOW NEOGENOMIC, CMP, RETIC, SCAN CBC, FE and TIBC, LDH #### [address] Platelets (Bld) [#/Vol] 96 10*3/uL Low 150-450 [facility] Comment on above: Performed By: #### H BSAB, HCV RX PCR, CAMILA, CU, PLT AB S, SPE, RA, HBSAG, HIV SCREEN, KAPPA, SADIE, HBCAB, SKIP SERUM #### [facility] , #### CYTOGENE, T4F, [id number], FISH NOT BLAD, MARÍA, TSH3, FLOW NEOGENOMIC, CMP, RETIC, SCAN CBC, FE and TIBC, LDH #### [address] Poikilocytosis Moderate Normal [facility] Comment on above: Performed By: #### H BSAB, HCV RX PCR, CAMILA, CU, PLT AB S, SPE, RA, HBSAG, HIV SCREEN, KAPPA, SADIE, HBCAB, SKIP SERUM #### [facility] , #### CYTOGENE, T4F, [id number], FISH NOT BLAD, MARÍA, TSH3, FLOW NEOGENOMIC, CMP, RETIC, SCAN CBC, FE and TIBC, LDH #### [facility] [address] Polychromasia Slight Normal [facility] Comment on above: Performed By: #### H BSAB, HCV RX PCR, CAMILA, CU, PLT AB S, SPE, RA, HBSAG, HIV SCREEN, KAPPA, SADIE, HBCAB, SKIP SERUM #### [facility] , #### CYTOGENE, T4F, [id number], FISH NOT BLAD, MARÍA, TSH3, FLOW NEOGENOMIC, CMP, RETIC, SCAN CBC, FE and TIBC, LDH #### [address] RBC (Bld) [#/Vol] 1.73 10*6/uL Low 3.90-5.60 [facility] Comment on above: Performed By: #### H BSAB, HCV RX PCR, CAMILA, CU, PLT AB S, SPE, RA, HBSAG, HIV SCREEN, KAPPA, SADIE, HBCAB, SKIP SERUM #### [facility] , #### CYTOGENE, T4F, [id number], FISH NOT BLAD, MARÍA, TSH3, FLOW NEOGENOMIC, CMP, RETIC, SCAN CBC, FE and TIBC, LDH #### [address] Tear Drop Cells Slight Normal [facility] Comment on above: Performed By: #### H BSAB, HCV RX PCR, CAMILA, CU, PLT AB S, SPE, RA, HBSAG, HIV SCREEN, KAPPA, SADIE, HBCAB, SKIP SERUM #### [facility] , #### CYTOGENE, T4F, [id number], FISH NOT BLAD, MARÍA, TSH3, FLOW NEOGENOMIC, CMP, RETIC, SCAN CBC, FE and TIBC, LDH #### [address] Teardrop cell detectionOrder ed By: Jc Johnson on 04-28-2024 Dacrocytes LM Ql (Bld) Slight [facility] Alanine aminotransferase [En zymatic activity/volume] in Serum or PlasmaOrdered By: Elie Balderrama on 04-27-2024 ALT [Catalytic activity/Vol] 8 U/L Normal 7-52 [facility] Comment on above: Performed By: #### H BSAB, HCV RX PCR, CAMILA, CU, PLT AB S, SPE, RA, HBSAG, HIV SCREEN, KAPPA, SADIE, HBCAB, SKIP SERUM #### [facility] , #### CYTOGENE, T4F, [id number], FISH NOT BLAD, MARÍA, TSH3, FLOW NEOGENOMIC, CMP, RETIC, SCAN CBC, FE and TIBC, LDH #### [facility] [address] Albumin [Mass/volume] in Ser um or Plasma by Bromocresol green (BCG) dye binding methoOrdered By: Elie Balderrama on 04-27-2024 Albumin BCG dye [Mass/Vol] 3.1 g/dL Low 3.5-5.7 [facility] Alkaline phosphatase [Enzyma tic activity/volume] in Serum or PlasmaOrdered By: Elie Balderrama on 04-27-2024 ALP [Catalytic activity/Vol] 56 U/L Normal 34-104 [facility] Comment on above: Performed By: #### H BSAB, HCV RX PCR, CAMILA, CU, PLT AB S, SPE, RA, HBSAG, HIV SCREEN, KAPPA, SADIE, HBCAB, SKIP SERUM #### [facility] , #### CYTOGENE, T4F, [id number], FISH NOT BLAD, MARÍA, TSH3, FLOW NEOGENOMIC, CMP, RETIC, SCAN CBC, FE and TIBC, LDH #### [facility] [address] [facility] [place] BB Sendou ton 04-27-2024 [facility] [place] BB Sendout Sent to [facility] Comment on above: Result Comment: Sent to [facility] [place] for further testing. Final report to follow. PERFORMED BY: [facility] [address] [place] [address] PATHOLOGIST CRYOGENICS REPAIRER OTTO HARLEY M.D. Aspartate aminotransferase [ Enzymatic activity/volume] in Serum or PlasmaOrdered By: Elie Balderrama on 04-27-2024 AST [Catalytic activity/Vol] 8 U/L Low 13-39 [facility] Comment on above: Performed By: #### H BSAB, HCV RX PCR, CAMILA, CU, PLT AB S, SPE, RA, HBSAG, HIV SCREEN, KAPPA, SADIE, HBCAB, SKIP SERUM #### [facility] , #### CYTOGENE, T4F, [id number], FISH NOT BLAD, MARÍA, TSH3, FLOW NEOGENOMIC, CMP, RETIC, SCAN CBC, FE and TIBC, LDH #### [facility] [address] Bilirubin.total [Mass/volume ] in Serum or PlasmaOrdered By: Elie Balderrama on 04-27-2024 Bilirubin [Mass/Vol] 0.7 mg/dL Normal 0.3-1.0 [facility] Comment on above: Performed By: #### H BSAB, HCV RX PCR, CAMILA, CU, PLT AB S, SPE, RA, HBSAG, HIV SCREEN, KAPPA, SADIE, HBCAB, SKIP SERUM #### [facility] , #### CYTOGENE, T4F, [id number], FISH NOT BLAD, MARÍA, TSH3, FLOW NEOGENOMIC, CMP, RETIC, SCAN CBC, FE and TIBC, LDH #### [facility] [address] Blood Bank Pathologist Martha jeronimo 04-27-2024 Blood Bank Pathologist Review Sent to Pathology Normal [facility] Comment on above: Result Comment: PERF ORMED BY: [place] [address] PATHOLOGIST CRYOGENICS REPAIRER OTTO HARLEY M.D. Comprehensive Metabolic Pane melvin 04-27-2024 Albumin [Mass/Vol] 3.1 g/dL Low 3.5-5.7 [facility] Comment on above: Performed By: #### H BSAB, HCV RX PCR, CAMILA, CU, PLT AB S, SPE, RA, HBSAG, HIV SCREEN, KAPPA, SADIE, HBCAB, SKIP SERUM #### [facility] , #### CYTOGENE, T4F, [id number], FISH NOT BLAD, MARÍA, TSH3, FLOW NEOGENOMIC, CMP, RETIC, SCAN CBC, FE and TIBC, LDH #### [address] Anion gap [Moles/Vol] 14.5 mmol/L Normal 6.0-15.0 [facility] Comment on above: Performed By: #### H BSAB, HCV RX PCR, CAMILA, CU, PLT AB S, SPE, RA, HBSAG, HIV SCREEN, KAPPA, SADIE, HBCAB, SKIP SERUM #### [facility] , #### CYTOGENE, T4F, [id number], FISH NOT BLAD, MARÍA, TSH3, FLOW NEOGENOMIC, CMP, RETIC, SCAN CBC, FE and TIBC, LDH #### [address] Calcium [Mass/Vol] 9.1 mg/dL Normal 8.6-10.3 [facility] Comment on above: Performed By: #### H BSAB, HCV RX PCR, CAMILA, CU, PLT AB S, SPE, RA, HBSAG, HIV SCREEN, KAPPA, SADIE, HBCAB, SKIP SERUM #### [facility] , #### CYTOGENE, T4F, [id number], FISH NOT BLAD, MARÍA, TSH3, FLOW NEOGENOMIC, CMP, RETIC, SCAN CBC, FE and TIBC, LDH #### [address] Chloride [Moles/Vol] 104 mmol/L Normal 98-107 [facility] Comment on above: Performed By: #### H BSAB, HCV RX PCR, CAMILA, CU, PLT AB S, SPE, RA, HBSAG, HIV SCREEN, KAPPA, SADIE, HBCAB, SKIP SERUM #### [facility] , #### CYTOGENE, T4F, [id number], FISH NOT BLAD, MARÍA, TSH3, FLOW NEOGENOMIC, CMP, RETIC, SCAN CBC, FE and TIBC, LDH #### [address] CO2 [Moles/Vol] 23.8 mmol/L Normal 21.0-31.0 [facility] Comment on above: Performed By: #### H BSAB, HCV RX PCR, CAMILA, CU, PLT AB S, SPE, RA, HBSAG, HIV SCREEN, KAPPA, SADIE, HBCAB, SKPI SERUM #### [facility] , #### CYTOGENE, T4F, [id number], FISH NOT BLAD, MARÍA, TSH3, FLOW NEOGENOMIC, CMP, RETIC, SCAN CBC, FE and TIBC, LDH #### [address] Creatinine [Mass/Vol] 1.24 mg/dL Normal 0.70-1.30 [facility] Comment on above: Performed By: #### H BSAB, HCV RX PCR, CAMILA, CU, PLT AB S, SPE, RA, HBSAG, HIV SCREEN, KAPPA, SADIE, HBCAB, SKIP SERUM #### [facility] , #### CYTOGENE, T4F, [id number], FISH NOT BLAD, MARÍA, TSH3, FLOW NEOGENOMIC, CMP, RETIC, SCAN CBC, FE and TIBC, LDH #### [address] Creatinine Clr Calc Pharmacy 50.68 Normal [facility] Comment on above: Performed By: #### H BSAB, HCV RX PCR, CAMILA, CU, PLT AB S, SPE, RA, HBSAG, HIV SCREEN, KAPPA, SADIE, HBCAB, SKIP SERUM #### [facility] , #### CYTOGENE, T4F, [id number], FISH NOT BLAD, MARÍA, TSH3, FLOW NEOGENOMIC, CMP, RETIC, SCAN CBC, FE and TIBC, LDH #### [address] GFR/1.73 sq M.predicted MDRD (S/P/Bld) [Vol rate/Area] mL/min/{1.73_m2} Normal [facility] Comment on above: Performed By: #### H BSAB, HCV RX PCR, CAIMLA, CU, PLT AB S, SPE, RA, HBSAG, HIV SCREEN, KAPPA, SADIE, HBCAB, SKIP SERUM #### [facility] , #### CYTOGENE, T4F, [id number], FISH NOT BLAD, MARÍA, TSH3, FLOW NEOGENOMIC, CMP, RETIC, SCAN CBC, FE and TIBC, LDH #### [facility] [address] Glucose [Mass/Vol] 114 mg/dL High 70-100 [facility] Comment on above: Result Comment: [facility][note 3] Glucose Reference Range is dependent on time and content of last meal. Glucose of more than 200 mg/dL in a nonstressed, ambulatory subject supports the diagnosis of Diabetes Mellitus. ADA recommended reference range Performed By: #### H BSAB, HCV RX PCR, CAMILA, CU, PLT AB S, SPE, RA, HBSAG, HIV SCREEN, KAPPA, SADIE, HBCAB, SKIP SERUM #### [facility] , #### CYTOGENE, T4F, [id number], FISH NOT BLAD, MARÍA, TSH3, FLOW NEOGENOMIC, CMP, RETIC, SCAN CBC, FE and TIBC, LDH #### [address] Potassium [Moles/Vol] 4.3 mmol/L Normal 3.5-5.1 [facility] Comment on above: Performed By: #### H BSAB, HCV RX PCR, CAMILA, CU, PLT AB S, SPE, RA, HBSAG, HIV SCREEN, KAPPA, SADIE, HBCAB, SKIP SERUM #### [facility] , #### CYTOGENE, T4F, [id number], FISH NOT BLAD, MARÍA, TSH3, FLOW NEOGENOMIC, CMP, RETIC, SCAN CBC, FE and TIBC, LDH #### [facility] [address] Sodium [Moles/Vol] 138 mmol/L Normal 136-145 [facility] Comment on above: Performed By: #### H BSAB, HCV RX PCR, CAMILA, CU, PLT AB S, SPE, RA, HBSAG, HIV SCREEN, KAPPA, SADIE, HBCAB, SKIP SERUM #### [facility] , #### CYTOGENE, T4F, [id number], FISH NOT BLAD, MARÍA, TSH3, FLOW NEOGENOMIC, CMP, RETIC, SCAN CBC, FE and TIBC, LDH #### [facility] [address] Urea nitrogen [Mass/Vol] 60 mg/dL High 7-25 [facility] Comment on above: Performed By: #### H BSAB, HCV RX PCR, CAMILA, CU, PLT AB S, SPE, RA, HBSAG, HIV SCREEN, KAPPA, SADIE, HBCAB, SKIP SERUM #### [facility] , #### CYTOGENE, T4F, [id number], FISH NOT BLAD, MARÍA, TSH3, FLOW NEOGENOMIC, CMP, RETIC, SCAN CBC, FE and TIBC, LDH #### [address] Direct [place] 04-27-2024 Polyspecific AHG Negative Normal Negative [facility] LeukoReduced RBCon LeukoReduced RBC TRANSFUSED 04/29/24 0019 Normal [facility] Magnesium [Mass/volume] in S dustin or PlasmaOrdered By: Elie Balderrama on 04-27-2024 Magnesium [Mass/Vol] 1.7 mg/dL Low 1.9-2.7 [facility] Comment on above: Result Comment: PERF ORMED BY: [place] [address] PATHOLOGIST CRYOGENICS REPAIRER OTTO HARLEY M.D. Performed By: #### H BSAB, HCV RX PCR, CAMILA, CU, PLT AB S, SPE, RA, HBSAG, HIV SCREEN, KAPPA, SADIE, HBCAB, SKIP SERUM #### [facility] , #### CYTOGENE, T4F, [id number], FISH NOT BLAD, MARÍA, TSH3, FLOW NEOGENOMIC, CMP, RETIC, SCAN CBC, FE and TIBC, LDH #### [facility] [address] [place] [id number] [facility] Partial Thromboplastin Timeo n 04-27-2024 aPTT Coag (Bld) [Time] 24.8 s Low 25.1-36.5 Th [facility] Comment on above: Result Comment: A he matocrit value greater than 55% may lead to inaccurate results in coagulation testing. Patients having hematocrit values >55% require a special collection tube for coagulation studies. Please contact the laboratory at [phone] for redraw instructions. PERFORMED BY: [address] [place] [address] PATHOLOGIST CRYOGENICS REPAIRER OTTO HARLEY M.D. Performed By: #### H BSAB, HCV RX PCR, CAMILA, CU, PLT AB S, SPE, RA, HBSAG, HIV SCREEN, KAPPA, SADIE, HBCAB, SKIP SERUM #### [facility] , #### CYTOGENE, T4F, [id number], FISH NOT BLAD, MARÍA, TSH3, FLOW NEOGENOMIC, CMP, RETIC, SCAN CBC, FE and TIBC, LDH #### [facility] [address] [place], [place] [id number] [place] Phosphate [Mass/volume] in S dustin or PlasmaOrdered By: Elie Balderrama on 04-27-2024 Phosphate [Mass/Vol] 2.4 mg/dL Low 2.5-4.5 [facility] Comment on above: Performed By: #### H BSAB, HCV RX PCR, CAMILA, CU, PLT AB S, SPE, RA, HBSAG, HIV SCREEN, KAPPA, SADIE, HBCAB, SKIP SERUM #### [facility] , #### CYTOGENE, T4F, [id number], FISH NOT BLAD, MARÍA, TSH3, FLOW NEOGENOMIC, CMP, RETIC, SCAN CBC, FE and TIBC, LDH #### [place] [id number] [place] Protein [Mass/volume] in Ser um or PlasmaOrdered By: Elie Balderrama on 04-27-2024 Protein [Mass/Vol] 7.5 g/dL Normal 6.4-8.9 [facility] Comment on above: Performed By: #### H BSAB, HCV RX PCR, CAMILA, CU, PLT AB S, SPE, RA, HBSAG, HIV SCREEN, KAPPA, SADIE, HBCAB, SKIP SERUM #### [facility] , #### CYTOGENE, T4F, [id number], FISH NOT BLAD, MARÍA, TSH3, FLOW NEOGENOMIC, CMP, RETIC, SCAN CBC, FE and TIBC, LDH #### [facility] [address] [place] [address] [facility] Prothrombin Time INRon 04-27 INR Coag (PPP) [Relative time] 1.2 {INR} Normal [facility] Comment on above: Result Comment: INR Therapeutic Range A) Pre- [...] valves: 3 - 4.5 Performed By: #### H BSAB, HCV RX PCR, CAMILA, CU, PLT AB S, SPE, RA, HBSAG, HIV SCREEN, KAPPA, SADIE, HBCAB, SKIP SERUM #### [facility] , #### CYTOGENE, T4F, [id number], FISH NOT BLAD, MARÍA, TSH3, FLOW NEOGENOMIC, CMP, RETIC, SCAN CBC, FE and TIBC, LDH #### [facility] [address] [place] [address] [facility] PT Coag (PPP) [Time] 13.5 s High 9.0-12.9 [facility] Comment on above: Result Comment: A he matocrit value greater than 55% may lead to inaccurate results in coagulation testing. Patients having hematocrit values >55% require a special collection tube for coagulation studies. Please contact the laboratory at [phone] for redraw instructions. Performed By: #### H BSAB, HCV RX PCR, CAMILA, CU, PLT AB S, SPE, RA, HBSAG, HIV SCREEN, KAPPA, SADIE, HBCAB, SKIP SERUM #### [facility] , #### CYTOGENE, T4F, [id number], FISH NOT BLAD, MARÍA, TSH3, FLOW NEOGENOMIC, CMP, RETIC, SCAN CBC, FE and TIBC, LDH #### [address] Scan and CBCon 04-27-2024 Anisocytosis Ql (Bld) Marked Normal [facility] Comment on above: Performed By: #### H BSAB, HCV RX PCR, CAMILA, CU, PLT AB S, SPE, RA, HBSAG, HIV SCREEN, KAPPA, SADIE, HBCAB, SKIP SERUM #### [facility] , #### CYTOGENE, T4F, [id number], FISH NOT BLAD, MARÍA, TSH3, FLOW NEOGENOMIC, CMP, RETIC, SCAN CBC, FE and TIBC, LDH #### [address] Basophils (Bld) [#/Vol] 0.0 10*3/uL Normal 0.0-0.2 [facility] Comment on above: Performed By: #### H BSAB, HCV RX PCR, CAMILA, CU, PLT AB S, SPE, RA, HBSAG, HIV SCREEN, KAPPA, SADIE, HBCAB, SKIP SERUM #### [facility] , #### CYTOGENE, T4F, [id number], FISH NOT BLAD, MARÍA, TSH3, FLOW NEOGENOMIC, CMP, RETIC, SCAN CBC, FE and TIBC, LDH #### [address] Basophils/100 WBC (Bld) 0.7 % Normal . [facility] Comment on above: Performed By: #### H BSAB, HCV RX PCR, CAMILA, CU, PLT AB S, SPE, RA, HBSAG, HIV SCREEN, KAPPA, SADIE, HBCAB, SKIP SERUM #### [facility] , #### CYTOGENE, T4F, [id number], FISH NOT BLAD, MARÍA, TSH3, FLOW NEOGENOMIC, CMP, RETIC, SCAN CBC, FE and TIBC, LDH #### [address] Eosinophils (Bld) [#/Vol] 0.0 10*3/uL Normal 0.0-0.45 [facility] Comment on above: Performed By: #### H BSAB, HCV RX PCR, CAMILA, CU, PLT AB S, SPE, RA, HBSAG, HIV SCREEN, KAPPA, SADIE, HBCAB, SKIP SERUM #### [facility] , #### CYTOGENE, T4F, [id number], FISH NOT BLAD, MARÍA, TSH3, FLOW NEOGENOMIC, CMP, RETIC, SCAN CBC, FE and TIBC, LDH #### [address] Eosinophils/100 WBC (Bld) 2.1 % Normal . [facility] Comment on above: Performed By: #### H BSAB, HCV RX PCR, CAMILA, CU, PLT AB S, SPE, RA, HBSAG, HIV SCREEN, KAPPA, SADIE, HBCAB, SKIP SERUM #### [facility] , #### CYTOGENE, T4F, [id number], FISH NOT BLAD, MARÍA, TSH3, FLOW NEOGENOMIC, CMP, RETIC, SCAN CBC, FE and TIBC, LDH #### [address] Erythrocyte distribution width (RBC) [Ratio] 25.3 % High 12.0-14.8 [facility] Comment on above: Performed By: #### H BSAB, HCV RX PCR, CAMILA, CU, PLT AB S, SPE, RA, HBSAG, HIV SCREEN, KAPPA, SADIE, HBCAB, SKIP SERUM #### [facility] , #### CYTOGENE, T4F, [id number], FISH NOT BLAD, MARÍA, TSH3, FLOW NEOGENOMIC, CMP, RETIC, SCAN CBC, FE and TIBC, LDH #### [address] Hematocrit (Bld) [Volume fraction] 17.4 % Off scale low 38.8-50.0 [facility] Comment on above: Result Comment: Crit ical value result called at 0825 on 04/27/24 Performed By: #### H BSAB, HCV RX PCR, CAMILA, CU, PLT AB S, SPE, RA, HBSAG, HIV SCREEN, KAPPA, SADIE, HBCAB, SKIP SERUM #### [facility] , #### CYTOGENE, T4F, [id number], FISH NOT BLAD, MARÍA, TSH3, FLOW NEOGENOMIC, CMP, RETIC, SCAN CBC, FE and TIBC, LDH #### [address] Hemoglobin (Bld) [Mass/Vol] 6.1 g/dL Low 13.0-17.0 [facility] Comment on above: Performed By: #### H BSAB, HCV RX PCR, CAMILA, CU, PLT AB S, SPE, RA, HBSAG, HIV SCREEN, KAPPA, SADIE, HBCAB, SKIP SERUM #### [facility] , #### CYTOGENE, T4F, [id number], FISH NOT BLAD, MARÍA, TSH3, FLOW NEOGENOMIC, CMP, RETIC, SCAN CBC, FE and TIBC, LDH #### [address] Lymphocytes (Bld) [#/Vol] 0.7 10*3/uL Low 1.00-4.8 [facility] Comment on above: Performed By: #### H BSAB, HCV RX PCR, CAMILA, CU, PLT AB S, SPE, RA, HBSAG, HIV SCREEN, KAPPA, SADIE, HBCAB, SKIP SERUM #### [facility] , #### CYTOGENE, T4F, [id number], FISH NOT BLAD, MARÍA, TSH3, FLOW NEOGENOMIC, CMP, RETIC, SCAN CBC, FE and TIBC, LDH #### [address] Lymphocytes/100 WBC (Bld) 30.0 % Normal . [facility] Comment on above: Performed By: #### H BSAB, HCV RX PCR, CAMILA, CU, PLT AB S, SPE, RA, HBSAG, HIV SCREEN, KAPPA, SADIE, HBCAB, SKIP SERUM #### [facility] , #### CYTOGENE, T4F, [id number], FISH NOT BLAD, MARÍA, TSH3, FLOW NEOGENOMIC, CMP, RETIC, SCAN CBC, FE and TIBC, LDH #### [facility] [address] MCH (RBC) [Entitic mass] 33.7 pg Normal 27.5-35.2 [facility] Comment on above: Performed By: #### H BSAB, HCV RX PCR, CAMILA, CU, PLT AB S, SPE, RA, HBSAG, HIV SCREEN, KAPPA, SADIE, HBCAB, SKIP SERUM #### [facility] , #### CYTOGENE, T4F, [id number], FISH NOT BLAD, MARÍA, TSH3, FLOW NEOGENOMIC, CMP, RETIC, SCAN CBC, FE and TIBC, LDH #### [facility] [address] MCV (RBC) [Entitic vol] 96.1 fL Normal 83.5-101 [facility] Comment on above: Performed By: #### H BSAB, HCV RX PCR, CAMILA, CU, PLT AB S, SPE, RA, HBSAG, HIV SCREEN, KAPPA, SADIE, HBCAB, SKIP SERUM #### [facility] , #### CYTOGENE, T4F, [id number], FISH NOT BLAD, MARÍA, TSH3, FLOW NEOGENOMIC, CMP, RETIC, SCAN CBC, FE and TIBC, LDH #### [facility] [address] Mean Corpuscular HGB Conc 35.1 g/dL Normal 32.5-35.6 [facility] Comment on above: Performed By: #### H BSAB, HCV RX PCR, CAMILA, CU, PLT AB S, SPE, RA, HBSAG, HIV SCREEN, KAPPA, SADIE, HBCAB, SKIP SERUM #### [facility] , #### CYTOGENE, T4F, [id number], FISH NOT BLAD, MARÍA, TSH3, FLOW NEOGENOMIC, CMP, RETIC, SCAN CBC, FE and TIBC, LDH #### [address] Monocytes (Bld) [#/Vol] 0.0 10*3/uL Normal 0.0-0.8 [facility] Comment on above: Performed By: #### H BSAB, HCV RX PCR, CAMILA, CU, PLT AB S, SPE, RA, HBSAG, HIV SCREEN, KAPPA, SADIE, HBCAB, SKIP SERUM #### [facility] , #### CYTOGENE, T4F, [id number], FISH NOT BLAD, MARÍA, TSH3, FLOW NEOGENOMIC, CMP, RETIC, SCAN CBC, FE and TIBC, LDH #### [address] Monocytes/100 WBC (Bld) 0.9 % Normal . [facility] Comment on above: Performed By: #### H BSAB, HCV RX PCR, CAMILA, CU, PLT AB S, SPE, RA, HBSAG, HIV SCREEN, KAPPA, SADIE, HBCAB, SKIP SERUM #### [facility] , #### CYTOGENE, T4F, [id number], FISH NOT BLAD, MARÍA, TSH3, FLOW NEOGENOMIC, CMP, RETIC, SCAN CBC, FE and TIBC, LDH #### [address] Neutrophils (Bld) [#/Vol] 1.5 10*3/uL Low 1.8-7.7 [facility] Comment on above: Performed By: #### H BSAB, HCV RX PCR, CAMILA, CU, PLT AB S, SPE, RA, HBSAG, HIV SCREEN, KAPPA, SADIE, HBCAB, SKIP SERUM #### [facility] , #### CYTOGENE, T4F, [id number], FISH NOT BLAD, MARÍA, TSH3, FLOW NEOGENOMIC, CMP, RETIC, SCAN CBC, FE and TIBC, LDH #### [address] Neutrophils/100 WBC (Bld) 66.3 % Normal . [facility] Comment on above: Performed By: #### H BSAB, HCV RX PCR, CAMILA, CU, PLT AB S, SPE, RA, HBSAG, HIV SCREEN, KAPPA, SADIE, HBCAB, SKIP SERUM #### [facility] , #### CYTOGENE, T4F, [id number], FISH NOT BLAD, MARÍA, TSH3, FLOW NEOGENOMIC, CMP, RETIC, SCAN CBC, FE and TIBC, LDH #### [address] NRBC% 0.2 /100{WBC} Normal 0-0.5 [facility] Comment on above: Performed By: #### H BSAB, HCV RX PCR, CAMILA, CU, PLT AB S, SPE, RA, HBSAG, HIV SCREEN, KAPPA, SADIE, HBCAB, SKIP SERUM #### [facility] , #### CYTOGENE, T4F, [id number], FISH NOT BLAD, MARÍA, TSH3, FLOW NEOGENOMIC, CMP, RETIC, SCAN CBC, FE and TIBC, LDH #### [address] Platelet Estimate Decreased Normal Normal [facility] Comment on above: Performed By: #### H BSAB, HCV RX PCR, CAMILA, CU, PLT AB S, SPE, RA, HBSAG, HIV SCREEN, KAPPA, SADIE, HBCAB, SKIP SERUM #### [facility] , #### CYTOGENE, T4F, [id number], FISH NOT BLAD, MARÍA, TSH3, FLOW NEOGENOMIC, CMP, RETIC, SCAN CBC, FE and TIBC, LDH #### [address] Platelet mean volume (Bld) [Entitic vol] 6.9 fL Normal 6.6-10.1 [facility] Comment on above: Performed By: #### H BSAB, HCV RX PCR, CAMILA, CU, PLT AB S, SPE, RA, HBSAG, HIV SCREEN, KAPPA, SADIE, HBCAB, SKIP SERUM #### [facility] , #### CYTOGENE, T4F, [id number], FISH NOT BLAD, MARÍA, TSH3, FLOW NEOGENOMIC, CMP, RETIC, SCAN CBC, FE and TIBC, LDH #### [address] Platelet Morphology Normal Normal Normal [facility] Comment on above: Result Comment: PERF ORMED BY: [place] [address] PATHOLOGIST CRYOGENICS REPAIRER OTTO HARLEY M.D. Performed By: #### H BSAB, HCV RX PCR, CAMILA, CU, PLT AB S, SPE, RA, HBSAG, HIV SCREEN, KAPPA, SADIE, HBCAB, SKIP SERUM #### [facility] , #### CYTOGENE, T4F, [id number], FISH NOT BLAD, MARÍA, TSH3, FLOW NEOGENOMIC, CMP, RETIC, SCAN CBC, FE and TIBC, LDH #### [address] Platelets (Bld) [#/Vol] 97 10*3/uL Low 150-450 [facility] Comment on above: Performed By: #### H BSAB, HCV RX PCR, CAMILA, CU, PLT AB S, SPE, RA, HBSAG, HIV SCREEN, KAPPA, SADIE, HBCAB, SKIP SERUM #### [facility] , #### CYTOGENE, T4F, [id number], FISH NOT BLAD, MARÍA, TSH3, FLOW NEOGENOMIC, CMP, RETIC, SCAN CBC, FE and TIBC, LDH #### [address] RBC (Bld) [#/Vol] 1.82 10*6/uL Low 3.90-5.60 [facility] Comment on above: Performed By: #### H BSAB, HCV RX PCR, CAMILA, CU, PLT AB S, SPE, RA, HBSAG, HIV SCREEN, KAPPA, SADIE, HBCAB, SKIP SERUM #### [facility] , #### CYTOGENE, T4F, [id number], FISH NOT BLAD, MARÍA, TSH3, FLOW NEOGENOMIC, CMP, RETIC, SCAN CBC, FE and TIBC, LDH #### [address] WBC (Bld) [#/Vol] 2.2 10*3/uL Low 4.1-10.5 [facility] Comment on above: Performed By: #### H BSAB, HCV RX PCR, CAMILA, CU, PLT AB S, SPE, RA, HBSAG, HIV SCREEN, KAPPA, SADIE, HBCAB, SKIP SERUM #### [facility] , #### CYTOGENE, T4F, [id number], FISH NOT BLAD, MARÍA, TSH3, FLOW NEOGENOMIC, CMP, RETIC, SCAN CBC, FE and TIBC, LDH #### [address] Serum globulin measurement b y calculation (mass/volume)Ordered By: Elie Balderrama on 04-27-2024 Globulin (S) [Mass/Vol] 4.4 g/dL [facility] Comment on above: Performed By: #### H BSAB, HCV RX PCR, CAMILA, CU, PLT AB S, SPE, RA, HBSAG, HIV SCREEN, KAPPA, SADIE, HBCAB, SKIP SERUM #### [facility] , #### CYTOGENE, T4F, [id number], FISH NOT BLAD, MARÍA, TSH3, FLOW NEOGENOMIC, CMP, RETIC, SCAN CBC, FE and TIBC, LDH #### [address] Serum or plasma albumin/glob ulin mass ratioOrdered By: Elie Balderrama on 04-27-2024 Albumin/Globulin [Mass ratio] 0.7 {ratio} [facility] Comment on above: Performed By: #### H BSAB, HCV RX PCR, CAMILA, CU, PLT AB S, SPE, RA, HBSAG, HIV SCREEN, KAPPA, SADIE, HBCAB, SKIP SERUM #### [facility] , #### CYTOGENE, T4F, [id number], FISH NOT BLAD, MARÍA, TSH3, FLOW NEOGENOMIC, CMP, RETIC, SCAN CBC, FE and TIBC, LDH #### [facility] [address] [place] [address] [place] Type and Screenon 04-27-2024 ABO and Rh group Nom (Bld) Blood group A Rh(D) positive Normal [facility] Comment on above: Order Comment: Speci al Requirements Irradiated Transfuse now? Y Number of units to transfuse now? 2 Screened 6 Units for K antigens Result Comment: PERF ORMED BY: [place] [address] PATHOLOGIST CRYOGENICS REPAIRER OTTO HARLEY M.D. Albumin [Mass/volume] in Ser um or PlasmaOrdered By: Bertha Cuevas on 04-23-2024 Albumin [Mass/Vol] 3.4 g/dL Normal 2.9-4.4 [facility] Comment on above: Performed By: #### H BSAB, HCV RX PCR, CAMILA, CU, PLT AB S, SPE, RA, HBSAG, HIV SCREEN, KAPPA, SADIE, HBCAB, SKIP SERUM #### [facility] , #### CYTOGENE, T4F, [id number], FISH NOT BLAD, MARÍA, TSH3, FLOW NEOGENOMIC, CMP, RETIC, SCAN CBC, FE and TIBC, LDH #### [facility] [address] [place] [address] Free K+L LT Chains, Qn, Son 04-23-2024 Free Booker Light Chains, S 1300.5 mg/L High 3.3-19.4 [facility] Comment on above: Performed By: #### H BSAB, HCV RX PCR, CAMILA, CU, PLT AB S, SPE, RA, HBSAG, HIV SCREEN, KAPPA, SADIE, HBCAB, SKIP SERUM #### [facility] , #### CYTOGENE, T4F, [id number], FISH NOT BLAD, MARÍA, TSH3, FLOW NEOGENOMIC, CMP, RETIC, SCAN CBC, FE and TIBC, LDH #### [address] Free Lambda Light Chains, S 7.3 mg/L Normal 5.7-26.3 [facility] Comment on above: Performed By: #### H BSAB, HCV RX PCR, CAMILA, CU, PLT AB S, SPE, RA, HBSAG, HIV SCREEN, KAPPA, SADIE, HBCAB, SKIP SERUM #### [facility] , #### CYTOGENE, T4F, [id number], FISH NOT BLAD, MARÍA, TSH3, FLOW NEOGENOMIC, CMP, RETIC, SCAN CBC, FE and TIBC, LDH #### [address] Booker/Lambda Ratio, S 178.15 High 0.26-1.65 [facility] Comment on above: Result Comment: Perf ormed at: CB - [facility] [address] [id number] Wellness Director: J Carlos Blackman PhD, Phone: [phone] PERFORMED BY: [place] [address] PATHOLOGIST CRYOGENICS REPAIRER OTTO HARLEY M.D. Performed By: #### H BSAB, HCV RX PCR, CAMILA, CU, PLT AB S, SPE, RA, HBSAG, HIV SCREEN, KAPPA, SADIE, HBCAB, SKIP SERUM #### [facility] , #### CYTOGENE, T4F, [id number], FISH NOT BLAD, MARÍA, TSH3, FLOW NEOGENOMIC, CMP, RETIC, SCAN CBC, FE and TIBC, LDH #### [facility] [address] [place] [address] IgA [Mass/volume] in Serum o r PlasmaOrdered By: Bertha Cuevas on 04-23-2024 IgA [Mass/Vol] 3448 mg/dL High 61-437 [facility] Comment on above: Results confirmed on dilution. IgE [Units/volume] in Serum or PlasmaOrdered By: Bertha Cuevas on 04-23-2024 IgE Qn 10 [IU]/mL 6-495 [facility] Comment on above: Performed at: BN - [facility] [id number] Director: Mary Jane Maya MD, Phone: [phone] IgG [Mass/volume] in Serum o r PlasmaOrdered By: Bertha Cuevas on 04-23-2024 IgG [Mass/Vol] 520 mg/dL Low 603-5523 [facility] IgM [Mass/volume] in Serum o r PlasmaOrdered By: artem Cuevas on 04-23-2024 IgM [Mass/Vol] 11 mg/dL Low 15-143 [facility] Comment on above: Result confirmed on concentration.Performed at: - [facility] [address] [id number] Director: J Carlos Blackman PhD, Phone: [phone] Immunofixation,Serumon 04-23 Immunofixation, Serum Comment Critically abnormal . [facility] Comment on above: Result Comment: Immu nofixation shows IgG monoclonal protein with kappa light chain specificity. PLEASE NOTE: Samples from patients receiving DARZALEX(R) (daratumumab) or SARCLISA(R)(isatuximab-[facility]) treatment can appear as an IgG kappa and mask a complete response (CR). If this patient is receiving these therapies, this SKIP assay interference can be removed by ordering test number [id number]- Immunofixation, Daratumumab-Specific, Serum or [id number]- Immunofixation, Isatuximab-Specific, Serum and submitting a new sample for testing or by calling the lab to add this test to the current sample. Immunofixation shows IgA monoclonal protein with kappa light chain specificity. Performed By: #### K APPA, IMM GAME, SKIP SERUM, SPE ####[facility] ,#### LDH ####[facility] [place] [address] [facility] Immunoglobulin A, Serum 3448 mg/dL High 61-437 [facility] Comment on above: Result Comment: Resu lts confirmed on dilution. Performed By: #### K APPA, IMM GAME, SKIP SERUM, SPE ####[facility] ,#### LDH ####[place] [address] [address] Immunoglobulin G 520 mg/dL Low 603-1613 [facility] Comment on above: Performed By: #### K APPA, IMM GAME, SKIP SERUM, SPE ####[facility] ,#### LDH ####[address] Immunoglobulin M, Serum 11 mg/dL Low 15-143 [facility] Comment on above: Result Comment: Resu lt confirmed on concentration. Performed at: [facility] [address] [place] [id number] Wellness Director: J Carlos Blackman PhD, Phone: [phone] Performed By: #### K APPA, IMM GAME, SKIP SERUM, SPE ####[facility] ,#### LDH ####[address] Immunoglobulin light chains. kappa.free [Mass/volume] in SerumOrdered By: Bertha Cuevas on 04-23-2024 Immunoglobulin light chains.kappa.free (S) [Mass/Vol] 1300.5 mg/L High 3.3-19.4 [facility] Immunoglobulin light chains. kappa.free/Immunoglobulin light chains.lambda.free [MassOrdered By: Bertha Cuevas on 04-23-2024 Immunoglobulin light chains.kappa.free/Immu noglobulin light chains.lambda.free (S) [Mass ratio] 178.15 High 0.26-1.65 [facility] Comment on above: Performed at: [facility] [place] [id number] Director: J Carlos Blackman PhD, Phone: [phone] Immunoglobulin light chains. lambda.free [Mass/volume] in Serum or PlasmaOrdered By: Bertha Cuevas on 04-23-2024 Immunoglobulin light chains.lambda.free [Mass/Vol] 7.3 mg/L 5.7-26.3 [facility] Immunoglobulins A/E/G/M, Qno n 04-23-2024 Immunoglobulin E 10 Normal 6-495 [facility] Comment on above: Result Comment: Perf ormed at: - [facility] [id number] Wellness Director: Mary Jane Maya MD, Phone: [phone] Performed By: #### H BSAB, HCV RX PCR, CAMILA, CU, PLT AB S, SPE, RA, HBSAG, HIV SCREEN, KAPPA, SADIE, HBCAB, SKIP SERUM #### [facility] , #### CYTOGENE, T4F, [id number], FISH NOT BLAD, MARÍA, TSH3, FLOW NEOGENOMIC, CMP, RETIC, SCAN CBC, FE and TIBC, LDH #### [facility] [address] LDH Lactate Dehydrogenaseon 04-23-2024 LDH Lactate Dehydrogenase 97 U/L Low 140-271 [facility] Comment on above: Result Comment: PERF ORMED BY: [place] [address] PATHOLOGIST CRYOGENICS REPAIRER OTTO HARLEY M.D. Performed By: #### K APPA, IMM GAME, SKIP SERUM, SPE ####[facility] ,#### LDH ####[facility] [id number] LDH Lactate Dehydrogenase Normal 140-271 [facility] Comment on above: Result Comment: Spec imen hemolyzed, redraw requested PERFORMED BY: [place] [address] PATHOLOGIST CRYOGENICS REPAIRER OTTO HARLEY M.D. Performed By: #### H BSAB, HCV RX PCR, CAMILA, CU, PLT AB S, SPE, RA, HBSAG, HIV SCREEN, KAPPA, SADIE, HBCAB, SKIP SERUM #### [facility] , #### CYTOGENE, T4F, [id number], FISH NOT BLAD, MARÍA, TSH3, FLOW NEOGENOMIC, CMP, RETIC, SCAN CBC, FE and TIBC, LDH #### [facility] [address] Lactate dehydrogenase [Enzym atic activity/volume] in Serum or Plasma by Lactate to pyOrdered By: Bertha Cuevas on 04-23-2024 LDH Lactate to pyruvate reaction [Catalytic activity/Vol] 97 U/L Low 140-271 [facility] No Panel InformationOrdered By: Bertha Cuevas on 04-23-2024 Protein Electrophoresis M-Kody Comment: g/dL Not Observed [facility] Comment on above: M-spike #1 = 3.0 g/d lM-spike #2 = 0.1 g/dl Protein Electrophoresis Note Comment . [facility] Comment on above: Protein electrophore sis scan will follow via computer,mail, or accounting director delivery. Serum Immunofixation Comment Abnormal . [facility] Comment on above: Immunofixation shows IgG monoclonal protein with kappalight chain specificity. PLEASE NOTE: Samples from patients receiving DARZALEX(R)(daratumumab) or SARCLISA(R)(isatuximab-[facility]) treatmentcan appear as an IgG kappa and mask a complete response(CR). If this patient is receiving these therapies, thisIFE assay interference can be removed by ordering testnumber [id number]- Immunofixation, Daratumumab-Specific,Serum or [id number]- Immunofixation, Isatuximab-Specific,Serum and submitting a new sample for testing or bycalling the lab to add this test to the current sample.Immunofixation shows IgA monoclonal protein with kappalight chain specificity. Protein Electrophoresis, Ser umon 04-23-2024 Uiufb-1-Mftggptc 0.3 g/dL Normal 0.0-0.4 [facility] Comment on above: Performed By: #### H BSAB, HCV RX PCR, CAMILA, CU, PLT AB S, SPE, RA, HBSAG, HIV SCREEN, KAPPA, SADIE, HBCAB, SKIP SERUM #### [facility] , #### CYTOGENE, T4F, [id number], FISH NOT BLAD, MARÍA, TSH3, FLOW NEOGENOMIC, CMP, RETIC, SCAN CBC, FE and TIBC, LDH #### [address] Zkfux-7-Jipuowcc 0.9 g/dL Normal 0.4-1.0 [facility] Comment on above: Performed By: #### H BSAB, HCV RX PCR, CAMILA, CU, PLT AB S, SPE, RA, HBSAG, HIV SCREEN, KAPPA, SADIE, HBCAB, SKIP SERUM #### [facility] , #### CYTOGENE, T4F, [id number], FISH NOT BLAD, MARÍA, TSH3, FLOW NEOGENOMIC, CMP, RETIC, SCAN CBC, FE and TIBC, LDH #### [address] Beta Globulin 3.8 g/dL High 0.7-1.3 [facility] Comment on above: Performed By: #### H BSAB, HCV RX PCR, CAMILA, CU, PLT AB S, SPE, RA, HBSAG, HIV SCREEN, KAPPA, SADIE, HBCAB, SKIP SERUM #### [facility] , #### CYTOGENE, T4F, [id number], FISH NOT BLAD, MARÍA, TSH3, FLOW NEOGENOMIC, CMP, RETIC, SCAN CBC, FE and TIBC, LDH #### [address] Gamma Globulin 0.4 g/dL Normal 0.4-1.8 [facility] Comment on above: Performed By: #### H BSAB, HCV RX PCR, CAMILA, CU, PLT AB S, SPE, RA, HBSAG, HIV SCREEN, KAPPA, SADIE, HBCAB, SKIP SERUM #### [facility] , #### CYTOGENE, T4F, [id number], FISH NOT BLAD, MARÍA, TSH3, FLOW NEOGENOMIC, CMP, RETIC, SCAN CBC, FE and TIBC, LDH #### [place] [address] [place] [employer] Comment: Normal Not Observed [facility] Comment on above: Result Comment: M-sp thanh #1 = 3.0 g/dl M-spike #2 = 0.1 g/dl Performed By: #### H BSAB, HCV RX PCR, CAMILA, CU, PLT AB S, SPE, RA, HBSAG, HIV SCREEN, KAPPA, SADIE, HBCAB, SKIP SERUM #### [facility] , #### CYTOGENE, T4F, [id number], FISH NOT BLAD, MARÍA, TSH3, FLOW NEOGENOMIC, CMP, RETIC, SCAN CBC, FE and TIBC, LDH #### [facility] [address] SPE-Note Comment Normal . [facility] Comment on above: Result Comment: Prot ein electrophoresis scan will follow via computer, mail, or accounting director delivery. Performed By: #### H BSAB, HCV RX PCR, CAMILA, CU, PLT AB S, SPE, RA, HBSAG, HIV SCREEN, KAPPA, SADIE, HBCAB, SKIP SERUM #### [facility] , #### CYTOGENE, T4F, [id number], FISH NOT BLAD, MARÍA, TSH3, FLOW NEOGENOMIC, CMP, RETIC, SCAN CBC, FE and TIBC, LDH #### [facility] [address] Protein [Mass/volume] in Ser um or PlasmaOrdered By: Bertha Cuevas on 04-23-2024 Protein [Mass/Vol] 8.8 g/dL High 6.0-8.5 [facility] Comment on above: Performed By: #### H BSAB, HCV RX PCR, CAMILA, CU, PLT AB S, SPE, RA, HBSAG, HIV SCREEN, KAPPA, SADIE, HBCAB, SKIP SERUM #### [facility] , #### CYTOGENE, T4F, [id number], FISH NOT BLAD, MARÍA, TSH3, FLOW NEOGENOMIC, CMP, RETIC, SCAN CBC, FE and TIBC, LDH #### [facility] [address] [place] [id number] [facility] Serum globulin measurement ( mass/volume)Ordered By: Bertha Cuevas on 04-23-2024 Globulin (S) [Mass/Vol] 5.4 g/dL High 2.2-3.9 [facility] Comment on above: Performed By: #### H BSAB, HCV RX PCR, CAMILA, CU, PLT AB S, SPE, RA, HBSAG, HIV SCREEN, KAPPA, SADIE, HBCAB, SKIP SERUM #### [facility] , #### CYTOGENE, T4F, [id number], FISH NOT BLAD, MARÍA, TSH3, FLOW NEOGENOMIC, CMP, RETIC, SCAN CBC, FE and TIBC, LDH #### [facility] [address] Serum or plasma albumin/glob ulin mass ratioOrdered By: Bertha Cuevas on 04-23-2024 Albumin/Globulin [Mass ratio] 0.6 {ratio} Low 0.7-1.7 [facility] Comment on above: Performed By: #### H BSAB, HCV RX PCR, CAMILA, CU, PLT AB S, SPE, RA, HBSAG, HIV SCREEN, KAPPA, SADIE, HBCAB, SKIP SERUM #### [facility] , #### CYTOGENE, T4F, [id number], FISH NOT BLAD, MARÍA, TSH3, FLOW NEOGENOMIC, CMP, RETIC, SCAN CBC, FE and TIBC, LDH #### [facility] [address] Serum or plasma alpha 1 glob ulin measurement by electrophoresis (mass/volume)Ordered By: Bertha Cuevas on 04-23-2024 Alpha 1 globulin Elph [Mass/Vol] 0.3 g/dL 0.0-0.4 [facility] Serum or plasma alpha 2 glob ulin measurement by electrophoresis (mass/volume)Ordered By: Bertha Cuevas on 04-23-2024 Alpha 2 globulin Elph [Mass/Vol] 0.9 g/dL 0.4-1.0 [facility] Serum or plasma beta globuli n measurement by electrophoresis (mass/volume)Ordered By: Bertha Cuevas on 04-23-2024 Beta globulin Elph [Mass/Vol] 3.8 g/dL High 0.7-1.3 [facility] Serum or plasma gamma globul in measurement by electrophoresis (mass/volume)Ordered By: Bertha Lockhartjaime on 04-23-2024 Gamma globulin Elph [Mass/Vol] 0.4 g/dL 0.4-1.8 [facility] Antibody Identificationon Antibody Identification CD38 Normal [facility] Comment on above: Result Comment: This patient is on Daratumumab therapy. The use of Daratumumab leads to in vitro RBC agglutination and thereby to false-positive results in the indirect antiglobulin test(IAT). The 0.2M DTT pretreatment of RBC's elimnates the ISSA interference with the indirect antiglobulin test. It should be noted that this process makes it difficult to definitively rule out red cell antibodies particularly in the CRISTIANA system, but GENE, YT, and DO blood group systems may also be affected. As with any transfusion,the patient should be carefully followed during and after transfusion for signs of immune hemolysis. Blood Bank Pathologist Martha jeronimo 04-17-2024 Blood Bank Pathologist Review Y Normal [facility] Comment on above: Result Comment: PERF ORMED BY: [address] [place] [address] PATHOLOGIST CRYOGENICS REPAIRER OTTO HARLEY M.D. [facility] [place] [facility] Sendou ton 04-16-2024 [facility] [place] [facility] Sendout Sent to [facility] Normal [facility] Comment on above: Result Comment: Sent to [employer] for further testing. Final report to follow. PERFORMED BY: [facility] [address] [place] [address] PATHOLOGIST CRYOGENICS REPAIRER OTTO HARLEY M.D. Automated basophil %Ordered By: Bertha Cuevas on 04-16-2024 Basophils/100 WBC (Bld) 1.4 % Normal . [facility] Comment on above: Performed By: #### H BSAB, HCV RX PCR, CAMILA, CU, PLT AB S, SPE, RA, HBSAG, HIV SCREEN, KAPPA, SAIDE, HBCAB, SKIP SERUM #### [facility] , #### CYTOGENE, T4F, [id number], FISH NOT BLAD, MARÍA, TSH3, FLOW NEOGENOMIC, CMP, RETIC, SCAN CBC, FE and TIBC, LDH #### [address] Automated basophil countOrde red By: Bertha Cuevas on 04-16-2024 Basophils (Bld) [#/Vol] 0.0 10*3/uL Normal 0.0-0.2 [facility] Comment on above: Result Comment: PERF ORMED BY: [place] [address] PATHOLOGIST CRYOGENICS REPAIRER OTTO HARLEY M.D. Performed By: #### H BSAB, HCV RX PCR, CAMILA, CU, PLT AB S, SPE, RA, HBSAG, HIV SCREEN, KAPPA, SADIE, HBCAB, SKIP SERUM #### [facility] , #### CYTOGENE, T4F, [id number], FISH NOT BLAD, MARÍA, TSH3, FLOW NEOGENOMIC, CMP, RETIC, SCAN CBC, FE and TIBC, LDH #### [address] Automated blood monocyte cou ntOrdered By: Bertha Cuevas on 04-16-2024 Monocytes (Bld) [#/Vol] 0.0 10*3/uL Normal 0.0-0.8 [facility] Comment on above: Performed By: #### H BSAB, HCV RX PCR, CAMILA, CU, PLT AB S, SPE, RA, HBSAG, HIV SCREEN, KAPPA, SADIE, HBCAB, SKIP SERUM #### [facility] , #### CYTOGENE, T4F, [id number], FISH NOT BLAD, MARÍA, TSH3, FLOW NEOGENOMIC, CMP, RETIC, SCAN CBC, FE and TIBC, LDH #### [address] Automated eosinophil %Ordere d By: Bertha Cuevas on 04-16-2024 Eosinophils/100 WBC (Bld) 1.1 % Normal . [facility] Comment on above: Performed By: #### H BSAB, HCV RX PCR, CAMILA, CU, PLT AB S, SPE, RA, HBSAG, HIV SCREEN, KAPPA, SADIE, HBCAB, SKIP SERUM #### [facility] , #### CYTOGENE, T4F, [id number], FISH NOT BLAD, MARÍA, TSH3, FLOW NEOGENOMIC, CMP, RETIC, SCAN CBC, FE and TIBC, LDH #### [address] Automated eosinophil countOr dered By: Bertha Cuevas on 04-16-2024 Eosinophils (Bld) [#/Vol] 0.0 10*3/uL Normal 0.0-0.45 [facility] Comment on above: Performed By: #### H BSAB, HCV RX PCR, CAMILA, CU, PLT AB S, SPE, RA, HBSAG, HIV SCREEN, KAPPA, SADIE, HBCAB, SKIP SERUM #### [facility] , #### CYTOGENE, T4F, [id number], FISH NOT BLAD, MARÍA, TSH3, FLOW NEOGENOMIC, CMP, RETIC, SCAN CBC, FE and TIBC, LDH #### [address] Automated monocyte %Ordered By: Bertha Cuevas on 04-16-2024 Monocytes/100 WBC (Bld) 0.9 % Normal . [facility] Comment on above: Performed By: #### H BSAB, HCV RX PCR, CAMILA, CU, PLT AB S, SPE, RA, HBSAG, HIV SCREEN, KAPPA, SADIE, HBCAB, SKIP SERUM #### [facility] , #### CYTOGENE, T4F, [id number], FISH NOT BLAD, MARÍA, TSH3, FLOW NEOGENOMIC, CMP, RETIC, SCAN CBC, FE and TIBC, LDH #### [address] Automated neutrophil %Ordere d By: Bertha Cuevas on 04-16-2024 Neutrophils/100 WBC (Bld) 59.5 % Normal . [facility] Comment on above: Performed By: #### H BSAB, HCV RX PCR, CAMILA, CU, PLT AB S, SPE, RA, HBSAG, HIV SCREEN, KAPPA, SADIE, HBCAB, SKIP SERUM #### [facility] , #### CYTOGENE, T4F, [id number], FISH NOT BLAD, MARÍA, TSH3, FLOW NEOGENOMIC, CMP, RETIC, SCAN CBC, FE and TIBC, LDH #### [address] Complete Blood Count Auto Di ffon 04-16-2024 Mean Corpuscular HGB Conc 34.6 g/dL Normal 32.5-35.6 [facility] Comment on above: Performed By: #### H BSAB, HCV RX PCR, CAMILA, CU, PLT AB S, SPE, RA, HBSAG, HIV SCREEN, KAPPA, SADIE, HBCAB, SKIP SERUM #### [facility] , #### CYTOGENE, T4F, [id number], FISH NOT BLAD, MARÍA, TSH3, FLOW NEOGENOMIC, CMP, RETIC, SCAN CBC, FE and TIBC, LDH #### [address] NRBC% 0.4 /100{WBC} Normal 0-0.5 [facility] Comment on above: Performed By: #### H BSAB, HCV RX PCR, CAMILA, CU, PLT AB S, SPE, RA, HBSAG, HIV SCREEN, KAPPA, SADIE, HBCAB, SKIP SERUM #### [facility] , #### CYTOGENE, T4F, [id number], FISH NOT BLAD, MARÍA, TSH3, FLOW NEOGENOMIC, CMP, RETIC, SCAN CBC, FE and TIBC, LDH #### [facility] [address] [place] [address] Direct [place] 04-16-2024 Polyspecific AHG Negative Normal Negative [facility] Comment on above: Result Comment: PERF ORMED BY: [place] [id number] PATHOLOGIST CRYOGENICS REPAIRER OTTO HARLEY M.D. Erythrocyte distribution wid th [Ratio] by Automated countOrdered By: Bertha Pearce on 04-16-2024 Erythrocyte distribution width (RBC) [Ratio] 22.9 % High 12.0-14.8 [facility] Comment on above: Performed By: #### H BSAB, HCV RX PCR, CAMLIA, CU, PLT AB S, SPE, RA, HBSAG, HIV SCREEN, KAPPA, SADIE, HBCAB, SKIP SERUM #### [facility] , #### CYTOGENE, T4F, [id number], FISH NOT BLAD, MARÍA, TSH3, FLOW NEOGENOMIC, CMP, RETIC, SCAN CBC, FE and TIBC, LDH #### [facility] [address] Erythrocytes [#/volume] in B lood by Automated countOrdered By: Bertha Cuevas on 04-16-2024 RBC (Bld) [#/Vol] 2.23 10*6/uL Low 3.90-5.60 [facility] Comment on above: Performed By: #### H BSAB, HCV RX PCR, CAMILA, CU, PLT AB S, SPE, RA, HBSAG, HIV SCREEN, KAPPA, SADIE, HBCAB, SKIP SERUM #### [facility] , #### CYTOGENE, T4F, [id number], FISH NOT BLAD, MARÍA, TSH3, FLOW NEOGENOMIC, CMP, RETIC, SCAN CBC, FE and TIBC, LDH #### [facility] [address] Hematocrit [Volume Fraction] of Blood by Automated countOrdered By: Bertha Pearce on 04-16-2024 Hematocrit (Bld) [Volume fraction] 22.2 % Low 38.8-50.0 [facility] Comment on above: Performed By: #### H BSAB, HCV RX PCR, CAMILA, CU, PLT AB S, SPE, RA, HBSAG, HIV SCREEN, KAPPA, SADIE, HBCAB, SKIP SERUM #### [facility] , #### CYTOGENE, T4F, [id number], FISH NOT BLAD, MARÍA, TSH3, FLOW NEOGENOMIC, CMP, RETIC, SCAN CBC, FE and TIBC, LDH #### [facility] [address] Hemoglobin [Mass/volume] in BloodOrdered By: Bertha Cuevas on 04-16-2024 Hemoglobin (Bld) [Mass/Vol] 7.7 g/dL Low 13.0-17.0 [facility] Comment on above: Performed By: #### H BSAB, HCV RX PCR, CAMILA, CU, PLT AB S, SPE, RA, HBSAG, HIV SCREEN, KAPPA, SADIE, HBCAB, SKIP SERUM #### [facility] , #### CYTOGENE, T4F, [id number], FISH NOT BLAD, MARÍA, TSH3, FLOW NEOGENOMIC, CMP, RETIC, SCAN CBC, FE and TIBC, LDH #### [facility] [address] Melvin 04-16-2024 L Specimen: [id number] Re ceived: 04/17/24 Status: SOUT Req Num: [id number] Spec Type: Impression Subm Dr: Wilton Matthews II DO Tissues: PATHBBK Procedures: PATHREVIEW Age/ Patient Sex Location Account Attending Physician Neil Wilcox 78/M XT [id number] Bertha Cuevas MD SPEC NUM: [id number] RECD: 04/17/24 STATUS: SOUT REQ NUM: [id number] MOE: 04/16/24- SUBM DR: Wilton Matthews II, DO ENTERED: 04/17/[address]: SPEC TYPE: Impression DEPT: AR ENTERED BY: [id number] RECV BY: [id number] ORDERED: PATHREVIEW ORDERED: PATHREVIEW Blood Bank Results Date Time Test Result Flag (u) Normal Range 04/16/24 0830 Ab Screen POSITIVE AB ID 04/16/24 0830 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 The use of Daratumumab leads to in vitro RBC agglutination and thereby to false-positive results in the indirect antiglobulin test(IAT). The 0.2M DTT pretreatment of RBC's elimnates the ISSA interference with the indirect antiglobulin test. It should be noted that this process makes it difficult to definitively rule out red cell antibodies particularly in the CRISTIANA system, but GENE, YT, and DO blood group systems may also be affected. As with any transfusion,the patient should be carefully followed during and after transfusion for signs of immune hemolysis. 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 Specimen: [id number] Received: 04/17/24 Status: URVASHI Gomez Num: [id number] Spec Type: Impression Subm Dr: Wilton Matthews, II, DO Tissues: PATHBBK Procedures: PATHREVIEW Patient: Neil Wilcox [id number] (Continued) Specimen: [id number] Received: 04/17/24 (Continued) Pathologist Review (Continued) Signed (signature on file) Mary Sultana MD 04/17/24 1555 Specimen: [id number] Received: 04/17/24 Status: URVASHI Gomez Num: [id number] Spec Type: Impression Subm Dr: Wilton Matthews II, Tissues: PATHBBK Procedures: PATHREVIEW Patient: Neil Wilcox [id number] (Continued) Specimen: [id number] Received: 04/17/24 (Continued) Pathologist Review (Continued) Polyspecific AHG: Negative CPT: 09259 Specimen: [id number] Received: 04/17/24 Status: URVASHI Gomez Num: [id number] Spec Type: Impression Subm Dr: Wilton Matthews, II, DO Tissues: PATHBBK Procedures: PATHREVIEW Patient: Neil Wilcox [id number] (Continued) Signed (signature on file) Mary Sultana MD 04/17/24 1555 Normal [facility] LeukoReduced RBCon LeukoReduced RBC TRANSFUSED 04/18/24 0933 Normal [facility] Leukocytes [#/volume] correc myrtle for nucleated erythrocytes in Blood by Automated counOrdered By: Bertha Cuevas on 04-16-2024 WBC corrected for nucl RBC Auto (Bld) [#/Vol] 2.1 10*3/uL Low 4.1-10.5 [facility] Leukocytes [#/volume] in Blo od by Automated countOrdered By: Bertha Cuevas on 04-16-2024 WBC (Bld) [#/Vol] 2.1 10*3/uL Low 4.1-10.5 [facility] Comment on above: Performed By: #### H BSAB, HCV RX PCR, CAMILA, CU, PLT AB S, SPE, RA, HBSAG, HIV SCREEN, KAPPA, SADIE, HBCAB, SKIP SERUM #### [facility] , #### CYTOGENE, T4F, [id number], FISH NOT BLAD, MARÍA, TSH3, FLOW NEOGENOMIC, CMP, RETIC, SCAN CBC, FE and TIBC, LDH #### [facility] [address] Lymphocytes [#/volume] in Bl ood by Automated countOrdered By: artem Cuevas on 04-16-2024 Lymphocytes (Bld) [#/Vol] 0.8 10*3/uL Low 1.00-4.8 [facility] Comment on above: Performed By: #### H BSAB, HCV RX PCR, CAMILA, CU, PLT AB S, SPE, RA, HBSAG, HIV SCREEN, KAPPA, SADIE, HBCAB, SKIP SERUM #### [facility] , #### CYTOGENE, T4F, [id number], FISH NOT BLAD, MARÍA, TSH3, FLOW NEOGENOMIC, CMP, RETIC, SCAN CBC, FE and TIBC, LDH #### [facility] [address] [place] [address] [place] Lymphocytes/100 leukocytes i n Blood by Automated countOrdered By: artem Cuevas on 04-16-2024 Lymphocytes/100 WBC (Bld) 37.1 % Normal . [facility] Comment on above: Performed By: #### H BSAB, HCV RX PCR, CAMILA, CU, PLT AB S, SPE, RA, HBSAG, HIV SCREEN, KAPPA, SADIE, HBCAB, SKIP SERUM #### [facility] , #### CYTOGENE, T4F, [id number], FISH NOT BLAD, MARÍA, TSH3, FLOW NEOGENOMIC, CMP, RETIC, SCAN CBC, FE and TIBC, LDH #### [address] MCH [Entitic mass] by Automa myrtle countOrdered By: Bertha Cuevas on 04-16-2024 MCH (RBC) [Entitic mass] 34.4 pg Normal 27.5-35.2 [facility] Comment on above: Performed By: #### H BSAB, HCV RX PCR, CAMILA, CU, PLT AB S, SPE, RA, HBSAG, HIV SCREEN, KAPPA, SADIE, HBCAB, SKIP SERUM #### [facility] , #### CYTOGENE, T4F, [id number], FISH NOT BLAD, MARÍA, TSH3, FLOW NEOGENOMIC, CMP, RETIC, SCAN CBC, FE and TIBC, LDH #### [address] MCHC Auto (RBC) [Mass/Vol]Or dered By: Bertha Cuevas on 04-16-2024 MCHC (RBC) [Mass/Vol] 34.6 g/dL 32.5-35.6 [facility] MCV [Entitic volume] by Auto mated countOrdered By: Bertha Cuevas on 04-16-2024 MCV (RBC) [Entitic vol] 99.4 fL Normal 83.5-101 [facility] Comment on above: Performed By: #### H BSAB, HCV RX PCR, CAMILA, CU, PLT AB S, SPE, RA, HBSAG, HIV SCREEN, KAPPA, SADIE, HBCAB, SKIP SERUM #### [facility] , #### CYTOGENE, T4F, [id number], FISH NOT BLAD, MARÍA, TSH3, FLOW NEOGENOMIC, CMP, RETIC, SCAN CBC, FE and TIBC, LDH #### [address] Neutrophils [#/volume] in Bl ood by Automated countOrdered By: Bertha Cuevas on 04-16-2024 Neutrophils (Bld) [#/Vol] 1.2 10*3/uL Low 1.8-7.7 [facility] Comment on above: Performed By: #### H BSAB, HCV RX PCR, CAMILA, CU, PLT AB S, SPE, RA, HBSAG, HIV SCREEN, KAPPA, SADIE, HBCAB, SKIP SERUM #### [facility] , #### CYTOGENE, T4F, [id number], FISH NOT BLAD, MARÍA, TSH3, FLOW NEOGENOMIC, CMP, RETIC, SCAN CBC, FE and TIBC, LDH #### [facility] [address] [place] [address] [place] Nucleated erythrocytes [Pres ence] in Blood by Automated countOrdered By: Bertha Cuevas on 04-16-2024 Nucleated RBC Auto Ql (Bld) 0.4 /100{WBC} 0-0.5 [facility] Platelet mean volume [Entiti c volume] in Blood by Automated countOrdered By: Bertha Cuevas on 04-16-2024 Platelet mean volume (Bld) [Entitic vol] 7.5 fL Normal 6.6-10.1 [facility] Comment on above: Performed By: #### H BSAB, HCV RX PCR, CAMILA, CU, PLT AB S, SPE, RA, HBSAG, HIV SCREEN, KAPPA, SADIE, HBCAB, SKIP SERUM #### [facility] , #### CYTOGENE, T4F, [id number], FISH NOT BLAD, MARÍA, TSH3, FLOW NEOGENOMIC, CMP, RETIC, SCAN CBC, FE and TIBC, LDH #### [facility] [address] [place] [address] [place] Platelets [#/volume] in Bloo d by Automated countOrdered By: Bertha Cuevas on 04-16-2024 Platelets (Bld) [#/Vol] 89 10*3/uL Low 150-450 [facility] Comment on above: Performed By: #### H BSAB, HCV RX PCR, CAMILA, CU, PLT AB S, SPE, RA, HBSAG, HIV SCREEN, KAPPA, SADIE, HBCAB, SKIP SERUM #### [facility] , #### CYTOGENE, T4F, [id number], FISH NOT BLAD, MARÍA, TSH3, FLOW NEOGENOMIC, CMP, RETIC, SCAN CBC, FE and TIBC, LDH #### [facility] [address] [place] [address] [place] Type and Screenon 04-16-2024 ABO and Rh group Nom (Bld) Blood group A Rh(D) positive Normal [facility] Comment on above: Order Comment: Trans fuse now? Y Number of units to transfuse now? 1 Result Comment: PERF ORMED BY: [place] [address] PATHOLOGIST CRYOGENICS REPAIRER OTTO HARLEY M.D. Alanine aminotransferase [En zymatic activity/volume] in Serum or PlasmaOrdered By: Bertha Cuevas on 04-08-2024 ALT [Catalytic activity/Vol] 7 U/L Normal 7-52 [facility] Comment on above: Performed By: #### H BSAB, HCV RX PCR, CAMILA, CU, PLT AB S, SPE, RA, HBSAG, HIV SCREEN, KAPPA, SADIE, HBCAB, SKIP SERUM #### [facility] , #### CYTOGENE, T4F, [id number], FISH NOT BLAD, MARÍA, TSH3, FLOW NEOGENOMIC, CMP, RETIC, SCAN CBC, FE and TIBC, LDH #### [facility] [address] [place] [address] Albumin [Mass/volume] in Ser um or Plasma by Bromocresol green (BCG) dye binding methoOrdered By: Bertha Cuevas on 04-08-2024 Albumin BCG dye [Mass/Vol] 3.1 g/dL Low 3.5-5.7 [facility] Alkaline phosphatase [Enzyma tic activity/volume] in Serum or PlasmaOrdered By: Bertha Cuevas on 04-08-2024 ALP [Catalytic activity/Vol] 72 U/L Normal 34-104 [facility] Comment on above: Performed By: #### H BSAB, HCV RX PCR, CAMILA, CU, PLT AB S, SPE, RA, HBSAG, HIV SCREEN, KAPPA, SADIE, HBCAB, SKIP SERUM #### [facility] , #### CYTOGENE, T4F, [id number], FISH NOT BLAD, MARÍA, TSH3, FLOW NEOGENOMIC, CMP, RETIC, SCAN CBC, FE and TIBC, LDH #### [facility] [address] Anisocytosis [Presence] in B lood by Light microscopyOrdered By: Bertha Cuevas on 04-08-2024 Anisocytosis Ql (Bld) Moderate Normal [facility] Comment on above: Performed By: #### H BSAB, HCV RX PCR, CAMILA, CU, PLT AB S, SPE, RA, HBSAG, HIV SCREEN, KAPPA, SADIE, HBCAB, SKIP SERUM #### [facility] , #### CYTOGENE, T4F, [id number], FISH NOT BLAD, MARÍA, TSH3, FLOW NEOGENOMIC, CMP, RETIC, SCAN CBC, FE and TIBC, LDH #### [facility] [address] [place] [address] Aspartate aminotransferase [ Enzymatic activity/volume] in Serum or PlasmaOrdered By: Bertha Cuevas on 04-08-2024 AST [Catalytic activity/Vol] 9 U/L Low 13-39 [facility] Comment on above: Performed By: #### H BSAB, HCV RX PCR, CAMILA, CU, PLT AB S, SPE, RA, HBSAG, HIV SCREEN, KAPPA, SADIE, HBCAB, SKIP SERUM #### [facility] , #### CYTOGENE, T4F, [id number], FISH NOT BLAD, MARÍA, TSH3, FLOW NEOGENOMIC, CMP, RETIC, SCAN CBC, FE and TIBC, LDH #### [place] [address] [place] Bilirubin.total [Mass/volume ] in Serum or PlasmaOrdered By: Bertha Cuevas on 04-08-2024 Bilirubin [Mass/Vol] 0.4 mg/dL Normal 0.3-1.0 [facility] Comment on above: Performed By: #### H BSAB, HCV RX PCR, CAMILA, CU, PLT AB S, SPE, RA, HBSAG, HIV SCREEN, KAPPA, SADIE, HBCAB, SKIP SERUM #### [facility] , #### CYTOGENE, T4F, [id number], FISH NOT BLAD, MARÍA, TSH3, FLOW NEOGENOMIC, CMP, RETIC, SCAN CBC, FE and TIBC, LDH #### [facility] [address] Calcium [Mass/volume] in Ser um or PlasmaOrdered By: artem Cuevas on 04-08-2024 Calcium [Mass/Vol] 8.9 mg/dL Normal 8.6-10.3 [facility] Comment on above: Performed By: #### H BSAB, HCV RX PCR, CAMILA, CU, PLT AB S, SPE, RA, HBSAG, HIV SCREEN, KAPPA, SADIE, HBCAB, SKIP SERUM #### [facility] , #### CYTOGENE, T4F, [id number], FISH NOT BLAD, MARÍA, TSH3, FLOW NEOGENOMIC, CMP, RETIC, SCAN CBC, FE and TIBC, LDH #### [facility] [address] [place] [address] [place] Carbon dioxide, total [Moles /volume] in Serum or PlasmaOrdered By: artem Pearce on 04-08-2024 CO2 [Moles/Vol] 22.5 mmol/L Normal 21.0-31.0 [facility] Comment on above: Performed By: #### H BSAB, HCV RX PCR, CAMILA, CU, PLT AB S, SPE, RA, HBSAG, HIV SCREEN, KAPPA, SADIE, HBCAB, SKIP SERUM #### [facility] , #### CYTOGENE, T4F, [id number], FISH NOT BLAD, MARÍA, TSH3, FLOW NEOGENOMIC, CMP, RETIC, SCAN CBC, FE and TIBC, LDH #### [facility] [address] [place] [address] [place] Chloride [Moles/volume] in S dustin or PlasmaOrdered By: Bertha Cuevas on 04-08-2024 Chloride [Moles/Vol] 102 mmol/L Normal 98-107 [facility] Comment on above: Performed By: #### H BSAB, HCV RX PCR, CAMILA, CU, PLT AB S, SPE, RA, HBSAG, HIV SCREEN, KAPPA, SADIE, HBCAB, SKIP SERUM #### [facility] , #### CYTOGENE, T4F, [id number], FISH NOT BLAD, MARÍA, TSH3, FLOW NEOGENOMIC, CMP, RETIC, SCAN CBC, FE and TIBC, LDH #### [facility] [address] [place] [address] Comprehensive Metabolic Pane melvin 04-08-2024 Albumin [Mass/Vol] 3.1 g/dL Low 3.5-5.7 [facility] Comment on above: Performed By: #### H BSAB, HCV RX PCR, CAMILA, CU, PLT AB S, SPE, RA, HBSAG, HIV SCREEN, KAPPA, SADIE, HBCAB, SKIP SERUM #### [facility] , #### CYTOGENE, T4F, [id number], FISH NOT BLAD, MARÍA, TSH3, FLOW NEOGENOMIC, CMP, RETIC, SCAN CBC, FE and TIBC, LDH #### [facility] [address] [place] [address] Creatinine Clr Calc Pharmacy 46.21 Normal [facility] Comment on above: Result Comment: PERF ORMED BY: [place] [address] PATHOLOGIST CRYOGENICS REPAIRER OTTO HARLEY M.D. Performed By: #### H BSAB, HCV RX PCR, CAMILA, CU, PLT AB S, SPE, RA, HBSAG, HIV SCREEN, KAPPA, SADIE, HBCAB, SKIP SERUM #### [facility] , #### CYTOGENE, T4F, [id number], FISH NOT BLAD, MARÍA, TSH3, FLOW NEOGENOMIC, CMP, RETIC, SCAN CBC, FE and TIBC, LDH #### [facility] [address] GFR/1.73 sq M.predicted MDRD (S/P/Bld) [Vol rate/Area] 53.934 mL/min/{1.73_m2} Normal [facility] Comment on above: Performed By: #### H BSAB, HCV RX PCR, CAMILA, CU, PLT AB S, SPE, RA, HBSAG, HIV SCREEN, KAPPA, SADIE, HBCAB, SKIP SERUM #### [facility] , #### CYTOGENE, T4F, [id number], FISH NOT BLAD, MARÍA, TSH3, FLOW NEOGENOMIC, CMP, RETIC, SCAN CBC, FE and TIBC, LDH #### [facility] [address] [place] [address] Creatinine [Mass/volume] in Serum or PlasmaOrdered By: Bertha Cuevas on 04-08-2024 Creatinine [Mass/Vol] 1.36 mg/dL High 0.70-1.30 [facility] Comment on above: Performed By: #### H BSAB, HCV RX PCR, CAMILA, CU, PLT AB S, SPE, RA, HBSAG, HIV SCREEN, KAPPA, SADIE, HBCAB, SKIP SERUM #### [facility] , #### CYTOGENE, T4F, [id number], FISH NOT BLAD, MARÍA, TSH3, FLOW NEOGENOMIC, CMP, RETIC, SCAN CBC, FE and TIBC, LDH #### [facility] [address] Diff and CBCon 04-08-2024 Erythrocyte distribution width (RBC) [Ratio] 22.3 % High 12.0-14.8 [facility] Comment on above: Performed By: #### H BSAB, HCV RX PCR, CAMILA, CU, PLT AB S, SPE, RA, HBSAG, HIV SCREEN, KAPPA, SADIE, HBCAB, SKIP SERUM #### [facility] , #### CYTOGENE, T4F, [id number], FISH NOT BLAD, MARÍA, TSH3, FLOW NEOGENOMIC, CMP, RETIC, SCAN CBC, FE and TIBC, LDH #### [facility] [address] Giant Platelet Tally 2 /100{WBC} Normal [facility] Comment on above: Performed By: #### H BSAB, HCV RX PCR, CAMILA, CU, PLT AB S, SPE, RA, HBSAG, HIV SCREEN, KAPPA, SADIE, HBCAB, SKIP SERUM #### [facility] , #### CYTOGENE, T4F, [id number], FISH NOT BLAD, MARÍA, TSH3, FLOW NEOGENOMIC, CMP, RETIC, SCAN CBC, FE and TIBC, LDH #### [address] Hematocrit (Bld) [Volume fraction] 20.9 % Low 38.8-50.0 [facility] Comment on above: Performed By: #### H BSAB, HCV RX PCR, CAMILA, CU, PLT AB S, SPE, RA, HBSAG, HIV SCREEN, KAPPA, SADIE, HBCAB, SKIP SERUM #### [facility] , #### CYTOGENE, T4F, [id number], FISH NOT BLAD, MARÍA, TSH3, FLOW NEOGENOMIC, CMP, RETIC, SCAN CBC, FE and TIBC, LDH #### [address] Hemoglobin (Bld) [Mass/Vol] 7.2 g/dL Low 13.0-17.0 [facility] Comment on above: Performed By: #### H BSAB, HCV RX PCR, CAMILA, CU, PLT AB S, SPE, RA, HBSAG, HIV SCREEN, KAPPA, SADIE, HBCAB, SKIP SERUM #### [facility] , #### CYTOGENE, T4F, [id number], FISH NOT BLAD, MARÍA, TSH3, FLOW NEOGENOMIC, CMP, RETIC, SCAN CBC, FE and TIBC, LDH #### [address] MCH (RBC) [Entitic mass] 34.3 pg Normal 27.5-35.2 [facility] Comment on above: Performed By: #### H BSAB, HCV RX PCR, CAMILA, CU, PLT AB S, SPE, RA, HBSAG, HIV SCREEN, KAPPA, SADIE, HBCAB, SKIP SERUM #### [facility] , #### CYTOGENE, T4F, [id number], FISH NOT BLAD, MARÍA, TSH3, FLOW NEOGENOMIC, CMP, RETIC, SCAN CBC, FE and TIBC, LDH #### [facility] [address] MCV (RBC) [Entitic vol] 99.0 fL Normal 83.5-101 [facility] Comment on above: Performed By: #### H BSAB, HCV RX PCR, CAMILA, CU, PLT AB S, SPE, RA, HBSAG, HIV SCREEN, KAPPA, SADIE, HBCAB, SKIP SERUM #### [facility] , #### CYTOGENE, T4F, [id number], FISH NOT BLAD, MARÍA, TSH3, FLOW NEOGENOMIC, CMP, RETIC, SCAN CBC, FE and TIBC, LDH #### [address] Mean Corpuscular HGB Conc 34.7 g/dL Normal 32.5-35.6 [facility] Comment on above: Performed By: #### H BSAB, HCV RX PCR, CAMILA, CU, PLT AB S, SPE, RA, HBSAG, HIV SCREEN, KAPPA, SADIE, HBCAB, SKIP SERUM #### [facility] , #### CYTOGENE, T4F, [id number], FISH NOT BLAD, MARÍA, TSH3, FLOW NEOGENOMIC, CMP, RETIC, SCAN CBC, FE and TIBC, LDH #### [address] Metamyelocytes 1 % High 0-0 [facility] Comment on above: Performed By: #### H BSAB, HCV RX PCR, CAMILA, CU, PLT AB S, SPE, RA, HBSAG, HIV SCREEN, KAPPA, SADIE, HBCAB, SKIP SERUM #### [facility] , #### CYTOGENE, T4F, [id number], FISH NOT BLAD, MARÍA, TSH3, FLOW NEOGENOMIC, CMP, RETIC, SCAN CBC, FE and TIBC, LDH #### [address] Platelet Estimate Decreased Normal Normal [facility] Comment on above: Performed By: #### H BSAB, HCV RX PCR, CAMILA, CU, PLT AB S, SPE, RA, HBSAG, HIV SCREEN, KAPPA, SADIE, HBCAB, SKIP SERUM #### [facility] , #### CYTOGENE, T4F, [id number], FISH NOT BLAD, MARÍA, TSH3, FLOW NEOGENOMIC, CMP, RETIC, SCAN CBC, FE and TIBC, LDH #### [address] Platelet mean volume (Bld) [Entitic vol] 7.6 fL Normal 6.6-10.1 [facility] Comment on above: Performed By: #### H BSAB, HCV RX PCR, CAMILA, CU, PLT AB S, SPE, RA, HBSAG, HIV SCREEN, KAPPA, SADIE, HBCAB, SKIP SERUM #### [facility] , #### CYTOGENE, T4F, [id number], FISH NOT BLAD, MARÍA, TSH3, FLOW NEOGENOMIC, CMP, RETIC, SCAN CBC, FE and TIBC, LDH #### [address] Platelet Morphology Normal Normal Normal [facility] Comment on above: Result Comment: PERF ORMED BY: [place] [address] PATHOLOGIST CRYOGENICS REPAIRER OTTO HARLEY M.D. Performed By: #### H BSAB, HCV RX PCR, CAMILA, CU, PLT AB S, SPE, RA, HBSAG, HIV SCREEN, KAPPA, SADIE, HBCAB, SKIP SERUM #### [facility] , #### CYTOGENE, T4F, [id number], FISH NOT BLAD, MARÍA, TSH3, FLOW NEOGENOMIC, CMP, RETIC, SCAN CBC, FE and TIBC, LDH #### [address] Platelets (Bld) [#/Vol] 76 10*3/uL Low 150-450 [facility] Comment on above: Performed By: #### H BSAB, HCV RX PCR, CAMILA, CU, PLT AB S, SPE, RA, HBSAG, HIV SCREEN, KAPPA, SADIE, HBCAB, SKIP SERUM #### [facility] , #### CYTOGENE, T4F, [id number], FISH NOT BLAD, MARÍA, TSH3, FLOW NEOGENOMIC, CMP, RETIC, SCAN CBC, FE and TIBC, LDH #### [address] RBC (Bld) [#/Vol] 2.11 10*6/uL Low 3.90-5.60 [facility] Comment on above: Performed By: #### H BSAB, HCV RX PCR, CAMILA, CU, PLT AB S, SPE, RA, HBSAG, HIV SCREEN, KAPPA, SADIE, HBCAB, SKIP SERUM #### [facility] , #### CYTOGENE, T4F, [id number], FISH NOT BLAD, MARÍA, TSH3, FLOW NEOGENOMIC, CMP, RETIC, SCAN CBC, FE and TIBC, LDH #### [address] WBC (Bld) [#/Vol] 1.2 10*3/uL Low 4.1-10.5 [facility] Comment on above: Performed By: #### H BSAB, HCV RX PCR, CAMILA, CU, PLT AB S, SPE, RA, HBSAG, HIV SCREEN, KAPPA, SADIE, HBCAB, SKIP SERUM #### [facility] , #### CYTOGENE, T4F, [id number], FISH NOT BLAD, MARÍA, TSH3, FLOW NEOGENOMIC, CMP, RETIC, SCAN CBC, FE and TIBC, LDH #### [address] Eosinophils/100 leukocytes i n Blood by Manual countOrdered By: Bertha Cuevas on 04-08-2024 Eosinophils/100 WBC (Bld) 9 % High 1-3 [facility] Comment on above: Performed By: #### H BSAB, HCV RX PCR, CAMILA, CU, PLT AB S, SPE, RA, HBSAG, HIV SCREEN, KAPPA, SADIE, HBCAB, SKIP SERUM #### [facility] , #### CYTOGENE, T4F, [id number], FISH NOT BLAD, MARÍA, TSH3, FLOW NEOGENOMIC, CMP, RETIC, SCAN CBC, FE and TIBC, LDH #### [facility] [address] [place] [id number] [place] Giant platelets/100 leukocyt es [Ratio] in Blood by Manual countOrdered By: Bertha Cuevas on 04-08-2024 Giant platelets/100 WBC Manual cnt (Bld) [Ratio] 2 /100{WBC} [facility] Glucose [Mass/volume] in Ser um or PlasmaOrdered By: Bertha Cuevas on 04-08-2024 Glucose [Mass/Vol] 102 mg/dL High 70-100 [facility] Comment on above: ADA recommended refe rence rangeRandom Glucose Reference Range is dependent on time and content of last meal. Glucose of more than 200 mg/dL in a nonstressed, ambulatory subject supports the diagnosis of Diabetes Mellitus. Result Comment: [place] om Glucose Reference Range is dependent on time and content of last meal. Glucose of more than 200 mg/dL in a nonstressed, ambulatory subject supports the diagnosis of Diabetes Mellitus. ADA recommended reference range Performed By: #### H BSAB, HCV RX PCR, CAMILA, CU, PLT AB S, SPE, RA, HBSAG, HIV SCREEN, KAPPA, SADIE, HBCAB, SKIP SERUM #### [facility] , #### CYTOGENE, T4F, [id number], FISH NOT BLAD, MARÍA, TSH3, FLOW NEOGENOMIC, CMP, RETIC, SCAN CBC, FE and TIBC, LDH #### [facility] [address] [place] [address] [place] Lymphocytes/100 leukocytes i n Blood by Manual countOrdered By: Bertha Cuevas on 04-08-2024 Lymphocytes/100 WBC (Bld) 52 % High 18-42 [facility] Comment on above: Performed By: #### H BSAB, HCV RX PCR, CAMILA, CU, PLT AB S, SPE, RA, HBSAG, HIV SCREEN, KAPPA, SADIE, HBCAB, SKIP SERUM #### [facility] , #### CYTOGENE, T4F, [id number], FISH NOT BLAD, MARÍA, TSH3, FLOW NEOGENOMIC, CMP, RETIC, SCAN CBC, FE and TIBC, LDH #### [facility] [address] Manual blood segmented neutr ophils/100 leukocytesOrdered By: Bertha Cuevas on 04-08-2024 Segmented neutrophils/100 WBC (Bld) 27 % Low 50-70 [facility] Comment on above: Performed By: #### H BSAB, HCV RX PCR, CAMILA, CU, PLT AB S, SPE, RA, HBSAG, HIV SCREEN, KAPPA, SADIE, HBCAB, SKIP SERUM #### [facility] , #### CYTOGENE, T4F, [id number], FISH NOT BLAD, MARÍA, TSH3, FLOW NEOGENOMIC, CMP, RETIC, SCAN CBC, FE and TIBC, LDH #### [facility] [address] [place] [address] [place] Metamyelocytes/100 WBC Manua l cnt (Bld)Ordered By: Bertha Cuevas on 04-08-2024 Metamyelocytes/100 WBC (Bld) 1 % High 0-0 [facility] Monocytes/100 WBC Manual cnt (Bld)Ordered By: Bertha Cuevas on 04-08-2024 Monocytes/100 WBC (Bld) N/A [facility] No Panel InformationOrdered By: Bertha Cuevas on 04-08-2024 Estimated GFR (CKD-EPI) 53.934 mL/Min [facility] Creatinine Clearance (Chem 46.21 [facility] Peripheral white blood cell differential % bands, microscopic examOrdered By: Bertha Cuevas on 04-08-2024 Band form neutrophils/100 WBC (Bld) 10 % High 0-5 [facility] Comment on above: Performed By: #### H BSAB, HCV RX PCR, CAMILA, CU, PLT AB S, SPE, RA, HBSAG, HIV SCREEN, KAPPA, SADIE, HBCAB, SKIP SERUM #### [facility] , #### CYTOGENE, T4F, [id number], FISH NOT BLAD, MARÍA, TSH3, FLOW NEOGENOMIC, CMP, RETIC, SCAN CBC, FE and TIBC, LDH #### [facility] [address] Platelet adequacy [Presence] in Blood by Light microscopyOrdered By: Bertha Pearce on 04-08-2024 Platelets LM Ql (Bld) Decreased Normal [facility] Platelet morphology finding [Identifier] in BloodOrdered By: Bertha Cuevas on 04-08-2024 Platelet morphology finding Nom (Bld) Normal Normal [facility] Potassium [Moles/volume] in Serum or PlasmaOrdered By: Bertha Cuevas on 04-08-2024 Potassium [Moles/Vol] 4.4 mmol/L Normal 3.5-5.1 [facility] Comment on above: Performed By: #### H BSAB, HCV RX PCR, CAMILA, CU, PLT AB S, SPE, RA, HBSAG, HIV SCREEN, KAPPA, SADIE, HBCAB, SKIP SERUM #### [facility] , #### CYTOGENE, T4F, [id number], FISH NOT BLAD, MARÍA, TSH3, FLOW NEOGENOMIC, CMP, RETIC, SCAN CBC, FE and TIBC, LDH #### [facility] [address] [place] [address] [place] Protein [Mass/volume] in Ser um or PlasmaOrdered By: Bertha Cuevas on 04-08-2024 Protein [Mass/Vol] 8.5 g/dL Normal 6.4-8.9 [facility] Comment on above: Performed By: #### H BSAB, HCV RX PCR, CAMILA, CU, PLT AB S, SPE, RA, HBSAG, HIV SCREEN, KAPPA, SADIE, HBCAB, SKIP SERUM #### [facility] , #### CYTOGENE, T4F, [id number], FISH NOT BLAD, MARÍA, TSH3, FLOW NEOGENOMIC, CMP, RETIC, SCAN CBC, FE and TIBC, LDH #### [address] RBC morphologyOrdered By: Endy Cuevas on 04-08-2024 RBC morphology finding Nom (Bld) Normal Normal [facility] Comment on above: Performed By: #### H BSAB, HCV RX PCR, CAMILA, CU, PLT AB S, SPE, RA, HBSAG, HIV SCREEN, KAPPA, SADIE, HBCAB, SKIP SERUM #### [facility] , #### CYTOGENE, T4F, [id number], FISH NOT BLAD, MARÍA, TSH3, FLOW NEOGENOMIC, CMP, RETIC, SCAN CBC, FE and TIBC, LDH #### [address] Serum globulin measurement b y calculation (mass/volume)Ordered By: Bertha Pearce on 04-08-2024 Globulin (S) [Mass/Vol] 5.4 g/dL [facility] Comment on above: Performed By: #### H BSAB, HCV RX PCR, CAMILA, CU, PLT AB S, SPE, RA, HBSAG, HIV SCREEN, KAPPA, SADIE, HBCAB, SKIP SERUM #### [facility] , #### CYTOGENE, T4F, [id number], FISH NOT BLAD, MARÍA, TSH3, FLOW NEOGENOMIC, CMP, RETIC, SCAN CBC, FE and TIBC, LDH #### [address] Serum or plasma albumin/glob ulin mass ratioOrdered By: Bertha Cuevas on 04-08-2024 Albumin/Globulin [Mass ratio] 0.6 {ratio} [facility] Comment on above: Performed By: #### H BSAB, HCV RX PCR, CAMILA, CU, PLT AB S, SPE, RA, HBSAG, HIV SCREEN, KAPPA, SADIE, HBCAB, SKIP SERUM #### [facility] , #### CYTOGENE, T4F, [id number], FISH NOT BLAD, MARÍA, TSH3, FLOW NEOGENOMIC, CMP, RETIC, SCAN CBC, FE and TIBC, LDH #### [facility] [address] Serum or plasma anion gap de terminationOrdered By: Bertha Cuevas on 04-08-2024 Anion gap [Moles/Vol] 14.9 mmol/L Normal 6.0-15.0 [facility] Comment on above: Performed By: #### H BSAB, HCV RX PCR, CAMILA, CU, PLT AB S, SPE, RA, HBSAG, HIV SCREEN, KAPPA, SADIE, HBCAB, SKIP SERUM #### [facility] , #### CYTOGENE, T4F, [id number], FISH NOT BLAD, MARÍA, TSH3, FLOW NEOGENOMIC, CMP, RETIC, SCAN CBC, FE and TIBC, LDH #### [facility] [address] [place] [address] [place] Sodium [Moles/volume] in Ser um or PlasmaOrdered By: Bertha Cuevas on 04-08-2024 Sodium [Moles/Vol] 135 mmol/L Low 136-145 [facility] Comment on above: Performed By: #### H BSAB, HCV RX PCR, CAMILA, CU, PLT AB S, SPE, RA, HBSAG, HIV SCREEN, KAPPA, SADIE, HBCAB, SKIP SERUM #### [facility] , #### CYTOGENE, T4F, [id number], FISH NOT BLAD, MARÍA, TSH3, FLOW NEOGENOMIC, CMP, RETIC, SCAN CBC, FE and TIBC, LDH #### [facility] [address] [place] [address] [place] Urea nitrogen [Mass/volume] in Serum or PlasmaOrdered By: Bertha Cuevas on 04-08-2024 Urea nitrogen [Mass/Vol] 26 mg/dL High 7-25 [facility] Comment on above: Performed By: #### H BSAB, HCV RX PCR, CAMILA, CU, PLT AB S, SPE, RA, HBSAG, HIV SCREEN, KAPPA, SADIE, HBCAB, SKIP SERUM #### [facility] , #### CYTOGENE, T4F, [id number], FISH NOT BLAD, MARÍA, TSH3, FLOW NEOGENOMIC, CMP, RETIC, SCAN CBC, FE and TIBC, LDH #### [facility] [address] Alanine aminotransferase [En zymatic activity/volume] in Serum or PlasmaOrdered By: Bretha Cuevas on 04-01-2024 ALT [Catalytic activity/Vol] 9 U/L Normal 7-52 [facility] Comment on above: Performed By: #### H BSAB, HCV RX PCR, CAMILA, CU, PLT AB S, SPE, RA, HBSAG, HIV SCREEN, KAPPA, SADIE, HBCAB, SKIP SERUM #### [facility] , #### CYTOGENE, T4F, [id number], FISH NOT BLAD, MARÍA, TSH3, FLOW NEOGENOMIC, CMP, RETIC, SCAN CBC, FE and TIBC, LDH #### [facility] [address] [place] [address] [place] Albumin [Mass/volume] in Ser um or Plasma by Bromocresol green (BCG) dye binding methoOrdered By: Bertha Cuevas on 04-01-2024 Albumin BCG dye [Mass/Vol] 3.2 g/dL Low 3.5-5.7 [facility] Alkaline phosphatase [Enzyma tic activity/volume] in Serum or PlasmaOrdered By: Bertha Cuevas on 04-01-2024 ALP [Catalytic activity/Vol] 73 U/L Normal 34-104 [facility] Comment on above: Performed By: #### H BSAB, HCV RX PCR, CAMILA, CU, PLT AB S, SPE, RA, HBSAG, HIV SCREEN, KAPPA, SADIE, HBCAB, SKIP SERUM #### [facility] , #### CYTOGENE, T4F, [id number], FISH NOT BLAD, MARÍA, TSH3, FLOW NEOGENOMIC, CMP, RETIC, SCAN CBC, FE and TIBC, LDH #### [address] Anisocytosis [Presence] in B lood by Light microscopyOrdered By: Bertha Cuevas on 04-01-2024 Anisocytosis Ql (Bld) Slight Normal [facility] Comment on above: Performed By: #### H BSAB, HCV RX PCR, CAMILA, CU, PLT AB S, SPE, RA, HBSAG, HIV SCREEN, KAPPA, SADIE, HBCAB, SKIP SERUM #### [facility] , #### CYTOGENE, T4F, [id number], FISH NOT BLAD, MARÍA, TSH3, FLOW NEOGENOMIC, CMP, RETIC, SCAN CBC, FE and TIBC, LDH #### [address] Aspartate aminotransferase [ Enzymatic activity/volume] in Serum or PlasmaOrdered By: Bertha Cuevas on 04-01-2024 AST [Catalytic activity/Vol] 8 U/L Low 13-39 [facility] Comment on above: Performed By: #### H BSAB, HCV RX PCR, CAMILA, CU, PLT AB S, SPE, RA, HBSAG, HIV SCREEN, KAPPA, SADIE, HBCAB, SKIP SERUM #### [facility] , #### CYTOGENE, T4F, [id number], FISH NOT BLAD, MARÍA, TSH3, FLOW NEOGENOMIC, CMP, RETIC, SCAN CBC, FE and TIBC, LDH #### [facility] [address] [place] [address] Automated basophil %Ordered By: artem Cuevas on 04-01-2024 Basophils/100 WBC (Bld) 0.8 % Normal . [facility] Comment on above: Performed By: #### H BSAB, HCV RX PCR, CAMILA, CU, PLT AB S, SPE, RA, HBSAG, HIV SCREEN, KAPPA, SADIE, HBCAB, SKIP SERUM #### [facility] , #### CYTOGENE, T4F, [id number], FISH NOT BLAD, MARÍA, TSH3, FLOW NEOGENOMIC, CMP, RETIC, SCAN CBC, FE and TIBC, LDH #### [facility] [address] Automated basophil countOrde red By: Bertha Cuevas on 04-01-2024 Basophils (Bld) [#/Vol] 0.0 10*3/uL Normal 0.0-0.2 [facility] Comment on above: Performed By: #### H BSAB, HCV RX PCR, CAMILA, CU, PLT AB S, SPE, RA, HBSAG, HIV SCREEN, KAPPA, SADIE, HBCAB, SKIP SERUM #### [facility] , #### CYTOGENE, T4F, [id number], FISH NOT BLAD, MARÍA, TSH3, FLOW NEOGENOMIC, CMP, RETIC, SCAN CBC, FE and TIBC, LDH #### [address] Automated blood monocyte cou ntOrdered By: artem Cuevas on 04-01-2024 Monocytes (Bld) [#/Vol] 0.0 10*3/uL Normal 0.0-0.8 [facility] Comment on above: Performed By: #### H BSAB, HCV RX PCR, CAMILA, CU, PLT AB S, SPE, RA, HBSAG, HIV SCREEN, KAPPA, SADIE, HBCAB, SKIP SERUM #### [facility] , #### CYTOGENE, T4F, [id number], FISH NOT BLAD, MARÍA, TSH3, FLOW NEOGENOMIC, CMP, RETIC, SCAN CBC, FE and TIBC, LDH #### [address] Automated eosinophil %Ordere d By: Bertha Cuevas on 04-01-2024 Eosinophils/100 WBC (Bld) 9.2 % Normal . [facility] Comment on above: Performed By: #### H BSAB, HCV RX PCR, CAMILA, CU, PLT AB S, SPE, RA, HBSAG, HIV SCREEN, KAPPA, SADIE, HBCAB, SKIP SERUM #### [facility] , #### CYTOGENE, T4F, [id number], FISH NOT BLAD, MARÍA, TSH3, FLOW NEOGENOMIC, CMP, RETIC, SCAN CBC, FE and TIBC, LDH #### [address] Automated eosinophil countOr dered By: Bertha Cuevas on 04-01-2024 Eosinophils (Bld) [#/Vol] 0.1 10*3/uL Normal 0.0-0.45 [facility] Comment on above: Performed By: #### H BSAB, HCV RX PCR, CAMILA, CU, PLT AB S, SPE, RA, HBSAG, HIV SCREEN, KAPPA, SADIE, HBCAB, SKIP SERUM #### [facility] , #### CYTOGENE, T4F, [id number], FISH NOT BLAD, MARÍA, TSH3, FLOW NEOGENOMIC, CMP, RETIC, SCAN CBC, FE and TIBC, LDH #### [address] Automated monocyte %Ordered By: Bertha Cuevas on 04-01-2024 Monocytes/100 WBC (Bld) 0.5 % Normal . [facility] Comment on above: Performed By: #### H BSAB, HCV RX PCR, CAMILA, CU, PLT AB S, SPE, RA, HBSAG, HIV SCREEN, KAPPA, SADIE, HBCAB, SKIP SERUM #### [facility] , #### CYTOGENE, T4F, [id number], FISH NOT BLAD, MARÍA, TSH3, FLOW NEOGENOMIC, CMP, RETIC, SCAN CBC, FE and TIBC, LDH #### [address] Automated neutrophil %Ordere d By: Bertha Cuevas on 04-01-2024 Neutrophils/100 WBC (Bld) 58.2 % Normal . [facility] Comment on above: Performed By: #### H BSAB, HCV RX PCR, CAMILA, CU, PLT AB S, SPE, RA, HBSAG, HIV SCREEN, KAPPA, SADIE, HBCAB, SKIP SERUM #### [facility] , #### CYTOGENE, T4F, [id number], FISH NOT BLAD, MARÍA, TSH3, FLOW NEOGENOMIC, CMP, RETIC, SCAN CBC, FE and TIBC, LDH #### [facility] [address] Bilirubin.total [Mass/volume ] in Serum or PlasmaOrdered By: Bertha Cuevas on 04-01-2024 Bilirubin [Mass/Vol] 0.5 mg/dL Normal 0.3-1.0 [facility] Comment on above: Performed By: #### H BSAB, HCV RX PCR, CAMILA, CU, PLT AB S, SPE, RA, HBSAG, HIV SCREEN, KAPPA, SADIE, HBCAB, SKIP SERUM #### [facility] , #### CYTOGENE, T4F, [id number], FISH NOT BLAD, MARÍA, TSH3, FLOW NEOGENOMIC, CMP, RETIC, SCAN CBC, FE and TIBC, LDH #### [facility] [address] [place] [address] [place] Calcium [Mass/volume] in Ser um or PlasmaOrdered By: artem NewlelNovlara on 04-01-2024 Calcium [Mass/Vol] 9.0 mg/dL Normal 8.6-10.3 [facility] Comment on above: Performed By: #### H BSAB, HCV RX PCR, CAMILA, CU, PLT AB S, SPE, RA, HBSAG, HIV SCREEN, KAPPA, SADIE, HBCAB, SKIP SERUM #### [facility] , #### CYTOGENE, T4F, [id number], FISH NOT BLAD, MARÍA, TSH3, FLOW NEOGENOMIC, CMP, RETIC, SCAN CBC, FE and TIBC, LDH #### [facility] [address] [place] [id number] [place] Carbon dioxide, total [Moles /volume] in Serum or PlasmaOrdered By: artem Pearce on 04-01-2024 CO2 [Moles/Vol] 23.1 mmol/L Normal 21.0-31.0 [facility] Comment on above: Performed By: #### H BSAB, HCV RX PCR, CAMILA, CU, PLT AB S, SPE, RA, HBSAG, HIV SCREEN, KAPPA, SADIE, HBCAB, SKIP SERUM #### [facility] , #### CYTOGENE, T4F, [id number], FISH NOT BLAD, MARÍA, TSH3, FLOW NEOGENOMIC, CMP, RETIC, SCAN CBC, FE and TIBC, LDH #### [facility] [address] Chloride [Moles/volume] in S dustin or PlasmaOrdered By: Bertha Cuevas on 04-01-2024 Chloride [Moles/Vol] 101 mmol/L Normal 98-107 [facility] Comment on above: Performed By: #### H BSAB, HCV RX PCR, CAMILA, CU, PLT AB S, SPE, RA, HBSAG, HIV SCREEN, KAPPA, SADIE, HBCAB, SKIP SERUM #### [facility] , #### CYTOGENE, T4F, [id number], FISH NOT BLAD, MARÍA, TSH3, FLOW NEOGENOMIC, CMP, RETIC, SCAN CBC, FE and TIBC, LDH #### [facility] [address] Comprehensive Metabolic Pane melvin 04-01-2024 Albumin [Mass/Vol] 3.2 g/dL Low 3.5-5.7 [facility] Comment on above: Performed By: #### H BSAB, HCV RX PCR, CAMILA, CU, PLT AB S, SPE, RA, HBSAG, HIV SCREEN, KAPPA, SADIE, HBCAB, SKIP SERUM #### [facility] , #### CYTOGENE, T4F, [id number], FISH NOT BLAD, MARÍA, TSH3, FLOW NEOGENOMIC, CMP, RETIC, SCAN CBC, FE and TIBC, LDH #### [facility] [address] [place] [id number] [facility] Creatinine Clr Calc Pharmacy 55.61 Normal [facility] Comment on above: Result Comment: PERF ORMED BY: [place] [address] PATHOLOGIST CRYOGENICS REPAIRER OTTO HARLEY M.D. Performed By: #### H BSAB, HCV RX PCR, CAMILA, CU, PLT AB S, SPE, RA, HBSAG, HIV SCREEN, KAPPA, SADIE, HBCAB, SKIP SERUM #### [facility] , #### CYTOGENE, T4F, [id number], FISH NOT BLAD, MARÍA, TSH3, FLOW NEOGENOMIC, CMP, RETIC, SCAN CBC, FE and TIBC, LDH #### [address] GFR/1.73 sq M.predicted MDRD (S/P/Bld) [Vol rate/Area] mL/min/{1.73_m2} Normal [facility] Comment on above: Performed By: #### H BSAB, HCV RX PCR, CAMILA, CU, PLT AB S, SPE, RA, HBSAG, HIV SCREEN, KAPPA, SADIE, HBCAB, SKIP SERUM #### [facility] , #### CYTOGENE, T4F, [id number], FISH NOT BLAD, MARÍA, TSH3, FLOW NEOGENOMIC, CMP, RETIC, SCAN CBC, FE and TIBC, LDH #### [address] Creatinine [Mass/volume] in Serum or PlasmaOrdered By: Bertha Cuevas on 04-01-2024 Creatinine [Mass/Vol] 1.13 mg/dL Normal 0.70-1.30 [facility] Comment on above: Performed By: #### H BSAB, HCV RX PCR, CAMILA, CU, PLT AB S, SPE, RA, HBSAG, HIV SCREEN, KAPPA, SADIE, HBCAB, SKIP SERUM #### [facility] , #### CYTOGENE, T4F, [id number], FISH NOT BLAD, MARÍA, TSH3, FLOW NEOGENOMIC, CMP, RETIC, SCAN CBC, FE and TIBC, LDH #### [address] Erythrocyte distribution wid th [Ratio] by Automated countOrdered By: Bertha Pearce on 04-01-2024 Erythrocyte distribution width (RBC) [Ratio] 21.3 % High 12.0-14.8 [facility] Comment on above: Performed By: #### H BSAB, HCV RX PCR, CAMILA, CU, PLT AB S, SPE, RA, HBSAG, HIV SCREEN, KAPPA, SADIE, HBCAB, SKIP SERUM #### [facility] , #### CYTOGENE, T4F, [id number], FISH NOT BLAD, MARÍA, TSH3, FLOW NEOGENOMIC, CMP, RETIC, SCAN CBC, FE and TIBC, LDH #### [facility] [address] Erythrocytes [#/volume] in B lood by Automated countOrdered By: Bertha Cuevas on 04-01-2024 RBC (Bld) [#/Vol] 2.46 10*6/uL Low 3.90-5.60 [facility] Comment on above: Performed By: #### H BSAB, HCV RX PCR, CAMILA, CU, PLT AB S, SPE, RA, HBSAG, HIV SCREEN, KAPPA, SADIE, HBCAB, SKIP SERUM #### [facility] , #### CYTOGENE, T4F, [id number], FISH NOT BLAD, MARÍA, TSH3, FLOW NEOGENOMIC, CMP, RETIC, SCAN CBC, FE and TIBC, LDH #### [facility] [address] Glucose [Mass/volume] in Ser um or PlasmaOrdered By: artem Cuevas on 04-01-2024 Glucose [Mass/Vol] 158 mg/dL High 70-100 [facility] Comment on above: ADA recommended refe rence rangeRandom Glucose Reference Range is dependent on time and content of last meal. Glucose of more than 200 mg/dL in a nonstressed, ambulatory subject supports the diagnosis of Diabetes Mellitus. Result Comment: [place] om Glucose Reference Range is dependent on time and content of last meal. Glucose of more than 200 mg/dL in a nonstressed, ambulatory subject supports the diagnosis of Diabetes Mellitus. ADA recommended reference range Performed By: #### H BSAB, HCV RX PCR, CAMILA, CU, PLT AB S, SPE, RA, HBSAG, HIV SCREEN, KAPPA, SADIE, HBCAB, SKIP SERUM #### [facility] , #### CYTOGENE, T4F, [id number], FISH NOT BLAD, MARÍA, TSH3, FLOW NEOGENOMIC, CMP, RETIC, SCAN CBC, FE and TIBC, LDH #### [facility] [address] Hematocrit [Volume Fraction] of Blood by Automated countOrdered By: Bertha Pearce on 04-01-2024 Hematocrit (Bld) [Volume fraction] 24.0 % Low 38.8-50.0 [facility] Comment on above: Performed By: #### H BSAB, HCV RX PCR, CAMILA, CU, PLT AB S, SPE, RA, HBSAG, HIV SCREEN, KAPPA, SADIE, HBCAB, SKIP SERUM #### [facility] , #### CYTOGENE, T4F, [id number], FISH NOT BLAD, MARÍA, TSH3, FLOW NEOGENOMIC, CMP, RETIC, SCAN CBC, FE and TIBC, LDH #### [address] Hemoglobin [Mass/volume] in BloodOrdered By: Bertha Cuevas on 04-01-2024 Hemoglobin (Bld) [Mass/Vol] 8.3 g/dL Low 13.0-17.0 [facility] Comment on above: Performed By: #### H BSAB, HCV RX PCR, CAMILA, CU, PLT AB S, SPE, RA, HBSAG, HIV SCREEN, KAPPA, SADIE, HBCAB, SKIP SERUM #### [facility] , #### CYTOGENE, T4F, [id number], FISH NOT BLAD, MARÍA, TSH3, FLOW NEOGENOMIC, CMP, RETIC, SCAN CBC, FE and TIBC, LDH #### [address] Leukocytes [#/volume] correc myrtle for nucleated erythrocytes in Blood by Automated counOrdered By: Bertha Cuevas on 04-01-2024 WBC corrected for nucl RBC Auto (Bld) [#/Vol] 1.5 10*3/uL Low 4.1-10.5 [facility] Leukocytes [#/volume] in Blo od by Automated countOrdered By: Bertha Cuevas on 04-01-2024 WBC (Bld) [#/Vol] 1.5 10*3/uL Low 4.1-10.5 [facility] Comment on above: Performed By: #### H BSAB, HCV RX PCR, CAMILA, CU, PLT AB S, SPE, RA, HBSAG, HIV SCREEN, KAPPA, SADIE, HBCAB, SKIP SERUM #### [facility] , #### CYTOGENE, T4F, [id number], FISH NOT BLAD, MARÍA, TSH3, FLOW NEOGENOMIC, CMP, RETIC, SCAN CBC, FE and TIBC, LDH #### [facility] [address] [place] [address] [place] Lymphocytes [#/volume] in Bl ood by Automated countOrdered By: Bertha Cuevas on 04-01-2024 Lymphocytes (Bld) [#/Vol] 0.5 10*3/uL Low 1.00-4.8 [facility] Comment on above: Performed By: #### H BSAB, HCV RX PCR, CAMILA, CU, PLT AB S, SPE, RA, HBSAG, HIV SCREEN, KAPPA, SADIE, HBCAB, SKIP SERUM #### [facility] , #### CYTOGENE, T4F, [id number], FISH NOT BLAD, MARÍA, TSH3, FLOW NEOGENOMIC, CMP, RETIC, SCAN CBC, FE and TIBC, LDH #### [facility] [address] [place] [address] [place] Lymphocytes/100 leukocytes i n Blood by Automated countOrdered By: Bertha Cuevas on 04-01-2024 Lymphocytes/100 WBC (Bld) 31.3 % Normal . [facility] Comment on above: Performed By: #### H BSAB, HCV RX PCR, CAMILA, CU, PLT AB S, SPE, RA, HBSAG, HIV SCREEN, KAPPA, SADIE, HBCAB, SKIP SERUM #### [facility] , #### CYTOGENE, T4F, [id number], FISH NOT BLAD, MARÍA, TSH3, FLOW NEOGENOMIC, CMP, RETIC, SCAN CBC, FE and TIBC, LDH #### [facility] [address] MCH [Entitic mass] by Automa myrtle countOrdered By: Bertha Cuevas on 04-01-2024 MCH (RBC) [Entitic mass] 33.8 pg Normal 27.5-35.2 [facility] Comment on above: Performed By: #### H BSAB, HCV RX PCR, CAMILA, CU, PLT AB S, SPE, RA, HBSAG, HIV SCREEN, KAPPA, SADIE, HBCAB, SKIP SERUM #### [facility] , #### CYTOGENE, T4F, [id number], FISH NOT BLAD, MARÍA, TSH3, FLOW NEOGENOMIC, CMP, RETIC, SCAN CBC, FE and TIBC, LDH #### [address] MCHC Auto (RBC) [Mass/Vol]Or dered By: Bertha Cuevas on 04-01-2024 MCHC (RBC) [Mass/Vol] 34.6 g/dL 32.5-35.6 [facility] MCV [Entitic volume] by Auto mated countOrdered By: Bertha Cuevas on 04-01-2024 MCV (RBC) [Entitic vol] 97.5 fL Normal 83.5-101 [facility] Comment on above: Performed By: #### H BSAB, HCV RX PCR, CAMILA, CU, PLT AB S, SPE, RA, HBSAG, HIV SCREEN, KAPPA, SADIE, HBCAB, SKIP SERUM #### [facility] , #### CYTOGENE, T4F, [id number], FISH NOT BLAD, MARÍA, TSH3, FLOW NEOGENOMIC, CMP, RETIC, SCAN CBC, FE and TIBC, LDH #### [facility] [address] [place] [address] [place] Macrocytes LM Ql (Bld)Ordere d By: Bertha Cuevas on 04-01-2024 Macrocytes Ql (Bld) Slight [facility] Neutrophils [#/volume] in Bl ood by Automated countOrdered By: Bertha Cuevas on 04-01-2024 Neutrophils (Bld) [#/Vol] 0.9 10*3/uL Low 1.8-7.7 [facility] Comment on above: Performed By: #### H BSAB, HCV RX PCR, CAMILA, CU, PLT AB S, SPE, RA, HBSAG, HIV SCREEN, KAPPA, SADIE, HBCAB, SKIP SERUM #### [facility] , #### CYTOGENE, T4F, [id number], FISH NOT BLAD, MARÍA, TSH3, FLOW NEOGENOMIC, CMP, RETIC, SCAN CBC, FE and TIBC, LDH #### [facility] [address] No Panel InformationOrdered By: Bertha Cuevas on 04-01-2024 Estimated GFR (CKD-EPI) > 60.0 mL/Min [facility] Creatinine Clearance (Chem 55.61 [facility] Nucleated erythrocytes [Pres ence] in Blood by Automated countOrdered By: Bertha Cuevas on 04-01-2024 Nucleated RBC Auto Ql (Bld) 0.3 /100{WBC} 0-0.5 [facility] Platelet adequacy [Presence] in Blood by Light microscopyOrdered By: Bertha Pearce on 04-01-2024 Platelets LM Ql (Bld) Decreased Normal [facility] Platelet mean volume [Entiti c volume] in Blood by Automated countOrdered By: Bertha Cuevas on 04-01-2024 Platelet mean volume (Bld) [Entitic vol] 7.9 fL Normal 6.6-10.1 [facility] Comment on above: Performed By: #### H BSAB, HCV RX PCR, CAMILA, CU, PLT AB S, SPE, RA, HBSAG, HIV SCREEN, KAPPA, SADIE, HBCAB, SKIP SERUM #### [facility] , #### CYTOGENE, T4F, [id number], FISH NOT BLAD, MARÍA, TSH3, FLOW NEOGENOMIC, CMP, RETIC, SCAN CBC, FE and TIBC, LDH #### [facility] [address] Platelet morphology finding [Identifier] in BloodOrdered By: Bertha Cuevas on 04-01-2024 Platelet morphology finding Nom (Bld) Normal Normal [facility] Platelets [#/volume] in Bloo d by Automated countOrdered By: Bertha Cuevas on 04-01-2024 Platelets (Bld) [#/Vol] 51 10*3/uL Low 150-450 [facility] Comment on above: Performed By: #### H BSAB, HCV RX PCR, CAMILA, CU, PLT AB S, SPE, RA, HBSAG, HIV SCREEN, KAPPA, SADIE, HBCAB, SKIP SERUM #### [facility] , #### CYTOGENE, T4F, [id number], FISH NOT BLAD, MARÍA, TSH3, FLOW NEOGENOMIC, CMP, RETIC, SCAN CBC, FE and TIBC, LDH #### [facility] [address] [place] [address] Potassium [Moles/volume] in Serum or PlasmaOrdered By: Bertha Cuevas on 04-01-2024 Potassium [Moles/Vol] 3.9 mmol/L Normal 3.5-5.1 [facility] Comment on above: Performed By: #### H BSAB, HCV RX PCR, CAMILA, CU, PLT AB S, SPE, RA, HBSAG, HIV SCREEN, KAPPA, SADIE, HBCAB, SKIP SERUM #### [facility] , #### CYTOGENE, T4F, [id number], FISH NOT BLAD, MARÍA, TSH3, FLOW NEOGENOMIC, CMP, RETIC, SCAN CBC, FE and TIBC, LDH #### [facility] [address] Protein [Mass/volume] in Ser um or PlasmaOrdered By: Bertha Cuevas on 04-01-2024 Protein [Mass/Vol] 8.8 g/dL Normal 6.4-8.9 [facility] Comment on above: Performed By: #### H BSAB, HCV RX PCR, CAMILA, CU, PLT AB S, SPE, RA, HBSAG, HIV SCREEN, KAPPA, SADIE, HBCAB, SKIP SERUM #### [facility] , #### CYTOGENE, T4F, [id number], FISH NOT BLAD, MARÍA, TSH3, FLOW NEOGENOMIC, CMP, RETIC, SCAN CBC, FE and TIBC, LDH #### [facility] [address] RBC morphologyOrdered By: Endy Cuevas on 04-01-2024 RBC morphology finding Nom (Bld) N/A [facility] Scan and CBCon 04-01-2024 Macrocytosis Slight Normal [facility] Comment on above: Performed By: #### H BSAB, HCV RX PCR, CAMILA, CU, PLT AB S, SPE, RA, HBSAG, HIV SCREEN, KAPPA, SADIE, HBCAB, SKIP SERUM #### [facility] , #### CYTOGENE, T4F, [id number], FISH NOT BLAD, MARÍA, TSH3, FLOW NEOGENOMIC, CMP, RETIC, SCAN CBC, FE and TIBC, LDH #### [facility] [address] Mean Corpuscular HGB Conc 34.6 g/dL Normal 32.5-35.6 [facility] Comment on above: Performed By: #### H BSAB, HCV RX PCR, CAMILA, CU, PLT AB S, SPE, RA, HBSAG, HIV SCREEN, KAPPA, SADIE, HBCAB, SKIP SERUM #### [facility] , #### CYTOGENE, T4F, [id number], FISH NOT BLAD, MARÍA, TSH3, FLOW NEOGENOMIC, CMP, RETIC, SCAN CBC, FE and TIBC, LDH #### [address] NRBC% 0.3 /100{WBC} Normal 0-0.5 [facility] Comment on above: Performed By: #### H BSAB, HCV RX PCR, CAMILA, CU, PLT AB S, SPE, RA, HBSAG, HIV SCREEN, KAPPA, SADIE, HBCAB, SKIP SERUM #### [facility] , #### CYTOGENE, T4F, [id number], FISH NOT BLAD, MARÍA, TSH3, FLOW NEOGENOMIC, CMP, RETIC, SCAN CBC, FE and TIBC, LDH #### [address] Platelet Estimate Decreased Normal Normal [facility] Comment on above: Performed By: #### H BSAB, HCV RX PCR, CAMILA, CU, PLT AB S, SPE, RA, HBSAG, HIV SCREEN, KAPPA, SADIE, HBCAB, SKIP SERUM #### [facility] , #### CYTOGENE, T4F, [id number], FISH NOT BLAD, MARÍA, TSH3, FLOW NEOGENOMIC, CMP, RETIC, SCAN CBC, FE and TIBC, LDH #### [address] Platelet Morphology Normal Normal Normal [facility] Comment on above: Result Comment: PERF ORMED BY: [place] [address] PATHOLOGIST CRYOGENICS REPAIRER OTTO HARLEY M.D. Performed By: #### H BSAB, HCV RX PCR, CAMILA, CU, PLT AB S, SPE, RA, HBSAG, HIV SCREEN, KAPPA, SADIE, HBCAB, SKIP SERUM #### [facility] , #### CYTOGENE, T4F, [id number], FISH NOT BLAD, MARÍA, TSH3, FLOW NEOGENOMIC, CMP, RETIC, SCAN CBC, FE and TIBC, LDH #### [address] Serum globulin measurement b y calculation (mass/volume)Ordered By: Bertha Pearce on 04-01-2024 Globulin (S) [Mass/Vol] 5.6 g/dL [facility] Comment on above: Performed By: #### H BSAB, HCV RX PCR, CAMILA, CU, PLT AB S, SPE, RA, HBSAG, HIV SCREEN, KAPPA, SADIE, HBCAB, SKIP SERUM #### [facility] , #### CYTOGENE, T4F, [id number], FISH NOT BLAD, MARÍA, TSH3, FLOW NEOGENOMIC, CMP, RETIC, SCAN CBC, FE and TIBC, LDH #### [address] Serum or plasma albumin/glob ulin mass ratioOrdered By: artem NewellDaralara on 04-01-2024 Albumin/Globulin [Mass ratio] 0.6 {ratio} [facility] Comment on above: Performed By: #### H BSAB, HCV RX PCR, CAMILA, CU, PLT AB S, SPE, RA, HBSAG, HIV SCREEN, KAPPA, SADIE, HBCAB, SKIP SERUM #### [facility] , #### CYTOGENE, T4F, [id number], FISH NOT BLAD, MARÍA, TSH3, FLOW NEOGENOMIC, CMP, RETIC, SCAN CBC, FE and TIBC, LDH #### [address] Serum or plasma anion gap de terminationOrdered By: artem Cuevas on 04-01-2024 Anion gap [Moles/Vol] 14.8 mmol/L Normal 6.0-15.0 [facility] Comment on above: Performed By: #### H BSAB, HCV RX PCR, CAMILA, CU, PLT AB S, SPE, RA, HBSAG, HIV SCREEN, KAPPA, SADIE, HBCAB, SKIP SERUM #### [facility] , #### CYTOGENE, T4F, [id number], FISH NOT BLAD, MARÍA, TSH3, FLOW NEOGENOMIC, CMP, RETIC, SCAN CBC, FE and TIBC, LDH #### [address] Sodium [Moles/volume] in Ser um or PlasmaOrdered By: Bertha Cuevas on 04-01-2024 Sodium [Moles/Vol] 135 mmol/L Low 136-145 [facility] Comment on above: Performed By: #### H BSAB, HCV RX PCR, CAMILA, CU, PLT AB S, SPE, RA, HBSAG, HIV SCREEN, KAPPA, SADIE, HBCAB, SKIP SERUM #### [facility] , #### CYTOGENE, T4F, [id number], FISH NOT BLAD, MARÍA, TSH3, FLOW NEOGENOMIC, CMP, RETIC, SCAN CBC, FE and TIBC, LDH #### [facility] [address] Urea nitrogen [Mass/volume] in Serum or PlasmaOrdered By: Bertha Cuevas on 04-01-2024 Urea nitrogen [Mass/Vol] 22 mg/dL Normal 7-25 [facility] Comment on above: Performed By: #### H BSAB, HCV RX PCR, CAMILA, CU, PLT AB S, SPE, RA, HBSAG, HIV SCREEN, KAPPA, SADIE, HBCAB, SKIP SERUM #### [facility] , #### CYTOGENE, T4F, [id number], FISH NOT BLAD, MARÍA, TSH3, FLOW NEOGENOMIC, CMP, RETIC, SCAN CBC, FE and TIBC, LDH #### [facility] [address] Capillary blood glucose ilana urement by glucometer (mass/volume)Ordered By: Bertha Cuevas on 03-28-2024 Glucose [Mass/Vol] 87 mg/dL Normal [facility] Comment on above: Random Glucose Refer ence Range is dependent on time and content of last meal. Glucose of more than 200 mg/dL in a nonstressed, ambulatory subject supports the diagnosis of Diabetes Mellitus. Result Comment: [facility][note 3] Glucose Reference Range is dependent on time and content of last meal. Glucose of more than 200 mg/dL in a nonstressed, ambulatory subject supports the diagnosis of Diabetes Mellitus. PERFORMED BY: [place] [address] PATHOLOGIST CRYOGENICS REPAIRER OTTO HARLEY M.D. Performed By: #### H BSAB, HCV RX PCR, CAMILA, CU, PLT AB S, SPE, RA, HBSAG, HIV SCREEN, KAPPA, SADIE, HBCAB, SKIP SERUM #### [facility] , #### CYTOGENE, T4F, [id number], FISH NOT BLAD, MARÍA, TSH3, FLOW NEOGENOMIC, CMP, RETIC, SCAN CBC, FE and TIBC, LDH #### [address] Comprehensive Metabolic Pane melvin 03-28-2024 Albumin [Mass/Vol] 2.8 g/dL Low 3.5-5.7 [facility] Comment on above: Performed By: #### H BSAB, HCV RX PCR, CAMILA, CU, PLT AB S, SPE, RA, HBSAG, HIV SCREEN, KAPPA, SADIE, HBCAB, SKIP SERUM #### [facility] , #### CYTOGENE, T4F, [id number], FISH NOT BLAD, MARÍA, TSH3, FLOW NEOGENOMIC, CMP, RETIC, SCAN CBC, FE and TIBC, LDH #### [address] Albumin/Globulin [Mass ratio] 0.6 {ratio} Normal [facility] Comment on above: Performed By: #### H BSAB, HCV RX PCR, CAMILA, CU, PLT AB S, SPE, RA, HBSAG, HIV SCREEN, KAPPA, SADIE, HBCAB, SKIP SERUM #### [facility] , #### CYTOGENE, T4F, [id number], FISH NOT BLAD, MARÍA, TSH3, FLOW NEOGENOMIC, CMP, RETIC, SCAN CBC, FE and TIBC, LDH #### [address] ALP [Catalytic activity/Vol] 61 U/L Normal 34-104 [facility] Comment on above: Performed By: #### H BSAB, HCV RX PCR, CAMILA, CU, PLT AB S, SPE, RA, HBSAG, HIV SCREEN, KAPPA, SADIE, HBCAB, SKIP SERUM #### [facility] , #### CYTOGENE, T4F, [id number], FISH NOT BLAD, MARÍA, TSH3, FLOW NEOGENOMIC, CMP, RETIC, SCAN CBC, FE and TIBC, LDH #### [address] ALT [Catalytic activity/Vol] 10 U/L Normal 7-52 [facility] Comment on above: Performed By: #### H BSAB, HCV RX PCR, CAMILA, CU, PLT AB S, SPE, RA, HBSAG, HIV SCREEN, KAPPA, SADIE, HBCAB, SKIP SERUM #### [facility] , #### CYTOGENE, T4F, [id number], FISH NOT BLAD, MARÍA, TSH3, FLOW NEOGENOMIC, CMP, RETIC, SCAN CBC, FE and TIBC, LDH #### [address] Anion gap [Moles/Vol] 14.8 mmol/L Normal 6.0-15.0 [facility] Comment on above: Performed By: #### H BSAB, HCV RX PCR, CAMILA, CU, PLT AB S, SPE, RA, HBSAG, HIV SCREEN, KAPPA, SADIE, HBCAB, SKIP SERUM #### [facility] , #### CYTOGENE, T4F, [id number], FISH NOT BLAD, MARÍA, TSH3, FLOW NEOGENOMIC, CMP, RETIC, SCAN CBC, FE and TIBC, LDH #### [address] AST [Catalytic activity/Vol] 9 U/L Low 13-39 [facility] Comment on above: Performed By: #### H BSAB, HCV RX PCR, CAMILA, CU, PLT AB S, SPE, RA, HBSAG, HIV SCREEN, KAPPA, SADIE, HBCAB, SKIP SERUM #### [facility] , #### CYTOGENE, T4F, [id number], FISH NOT BLAD, MARÍA, TSH3, FLOW NEOGENOMIC, CMP, RETIC, SCAN CBC, FE and TIBC, LDH #### [address] Bilirubin [Mass/Vol] 0.5 mg/dL Normal 0.3-1.0 [facility] Comment on above: Performed By: #### H BSAB, HCV RX PCR, CAMILA, CU, PLT AB S, SPE, RA, HBSAG, HIV SCREEN, KAPPA, SADIE, HBCAB, SKIP SERUM #### [facility] , #### CYTOGENE, T4F, [id number], FISH NOT BLAD, MARÍA, TSH3, FLOW NEOGENOMIC, CMP, RETIC, SCAN CBC, FE and TIBC, LDH #### [address] Calcium [Mass/Vol] 8.0 mg/dL Low 8.6-10.3 [facility] Comment on above: Performed By: #### H BSAB, HCV RX PCR, CAMILA, CU, PLT AB S, SPE, RA, HBSAG, HIV SCREEN, KAPPA, SADIE, HBCAB, SKIP SERUM #### [facility] , #### CYTOGENE, T4F, [id number], FISH NOT BLAD, MARÍA, TSH3, FLOW NEOGENOMIC, CMP, RETIC, SCAN CBC, FE and TIBC, LDH #### [address] Chloride [Moles/Vol] 103 mmol/L Normal 98-107 [facility] Comment on above: Performed By: #### H BSAB, HCV RX PCR, CAMILA, CU, PLT AB S, SPE, RA, HBSAG, HIV SCREEN, KAPPA, SADIE, HBCAB, SKIP SERUM #### [facility] , #### CYTOGENE, T4F, [id number], FISH NOT BLAD, MARÍA, TSH3, FLOW NEOGENOMIC, CMP, RETIC, SCAN CBC, FE and TIBC, LDH #### [address] CO2 [Moles/Vol] 21.5 mmol/L Normal 21.0-31.0 [facility] Comment on above: Performed By: #### H BSAB, HCV RX PCR, CAMILA, CU, PLT AB S, SPE, RA, HBSAG, HIV SCREEN, KAPPA, SADIE, HBCAB, SKIP SERUM #### [facility] , #### CYTOGENE, T4F, [id number], FISH NOT BLAD, MARÍA, TSH3, FLOW NEOGENOMIC, CMP, RETIC, SCAN CBC, FE and TIBC, LDH #### [address] Creatinine [Mass/Vol] 0.94 mg/dL Normal 0.70-1.30 [facility] Comment on above: Performed By: #### H BSAB, HCV RX PCR, CAMILA, CU, PLT AB S, SPE, RA, HBSAG, HIV SCREEN, KAPPA, SADIE, HBCAB, SKIP SERUM #### [facility] , #### CYTOGENE, T4F, [id number], FISH NOT BLAD, MARÍA, TSH3, FLOW NEOGENOMIC, CMP, RETIC, SCAN CBC, FE and TIBC, LDH #### [address] Creatinine Clr Calc Pharmacy 66.86 Normal [facility] Comment on above: Result Comment: PERF ORMED BY: [place] [address] PATHOLOGIST CRYOGENICS REPAIRER OTTO HARLEY M.D. Performed By: #### H BSAB, HCV RX PCR, CAMILA, CU, PLT AB S, SPE, RA, HBSAG, HIV SCREEN, KAPPA, SADIE, HBCAB, SKIP SERUM #### [facility] , #### CYTOGENE, T4F, [id number], FISH NOT BLAD, MARÍA, TSH3, FLOW NEOGENOMIC, CMP, RETIC, SCAN CBC, FE and TIBC, LDH #### [place] [address] [place] GFR/1.73 sq M.predicted MDRD (S/P/Bld) [Vol rate/Area] mL/min/{1.73_m2} Normal [facility] Comment on above: Performed By: #### H BSAB, HCV RX PCR, CAMILA, CU, PLT AB S, SPE, RA, HBSAG, HIV SCREEN, KAPPA, SADIE, HBCAB, SKIP SERUM #### [facility] , #### CYTOGENE, T4F, [id number], FISH NOT BLAD, MARÍA, TSH3, FLOW NEOGENOMIC, CMP, RETIC, SCAN CBC, FE and TIBC, LDH #### [facility] [address] Globulin (S) [Mass/Vol] 4.9 g/dL Normal [facility] Comment on above: Performed By: #### H BSAB, HCV RX PCR, CAMILA, CU, PLT AB S, SPE, RA, HBSAG, HIV SCREEN, KAPPA, SADIE, HBCAB, SKIP SERUM #### [facility] , #### CYTOGENE, T4F, [id number], FISH NOT BLAD, MARÍA, TSH3, FLOW NEOGENOMIC, CMP, RETIC, SCAN CBC, FE and TIBC, LDH #### [facility] [address] Glucose [Mass/Vol] 82 mg/dL Normal 70-100 [facility] Comment on above: Result Comment: [place] Glucose Reference Range is dependent on time and content of last meal. Glucose of more than 200 mg/dL in a nonstressed, ambulatory subject supports the diagnosis of Diabetes Mellitus. ADA recommended reference range Performed By: #### H BSAB, HCV RX PCR, CAMILA, CU, PLT AB S, SPE, RA, HBSAG, HIV SCREEN, KAPPA, SADIE, HBCAB, SKIP SERUM #### [facility] , #### CYTOGENE, T4F, [id number], FISH NOT BLAD, MARÍA, TSH3, FLOW NEOGENOMIC, CMP, RETIC, SCAN CBC, FE and TIBC, LDH #### [facility] [address] Potassium [Moles/Vol] 4.3 mmol/L Normal 3.5-5.1 [facility] Comment on above: Result Comment: Hemo lysis is present at a level that could interfere with the result. Contact lab if redraw is required Performed By: #### H BSAB, HCV RX PCR, CAMILA, CU, PLT AB S, SPE, RA, HBSAG, HIV SCREEN, KAPPA, SADIE, HBCAB, SKIP SERUM #### [facility] , #### CYTOGENE, T4F, [id number], FISH NOT BLAD, MARÍA, TSH3, FLOW NEOGENOMIC, CMP, RETIC, SCAN CBC, FE and TIBC, LDH #### [address] Protein [Mass/Vol] 7.7 g/dL Normal 6.4-8.9 [facility] Comment on above: Performed By: #### H BSAB, HCV RX PCR, CAMILA, CU, PLT AB S, SPE, RA, HBSAG, HIV SCREEN, KAPPA, SADIE, HBCAB, SKIP SERUM #### [facility] , #### CYTOGENE, T4F, [id number], FISH NOT BLAD, MARÍA, TSH3, FLOW NEOGENOMIC, CMP, RETIC, SCAN CBC, FE and TIBC, LDH #### [address] Sodium [Moles/Vol] 135 mmol/L Low 136-145 [facility] Comment on above: Performed By: #### H BSAB, HCV RX PCR, CAMILA, CU, PLT AB S, SPE, RA, HBSAG, HIV SCREEN, KAPPA, SADIE, HBCAB, SKIP SERUM #### [facility] , #### CYTOGENE, T4F, [id number], FISH NOT BLAD, MARÍA, TSH3, FLOW NEOGENOMIC, CMP, RETIC, SCAN CBC, FE and TIBC, LDH #### [address] Urea nitrogen [Mass/Vol] 19 mg/dL Normal 7-25 [facility] Comment on above: Performed By: #### H BSAB, HCV RX PCR, CAMILA, CU, PLT AB S, SPE, RA, HBSAG, HIV SCREEN, KAPPA, SADIE, HBCAB, SKIP SERUM #### [facility] , #### CYTOGENE, T4F, [id number], FISH NOT BLAD, MARÍA, TSH3, FLOW NEOGENOMIC, CMP, RETIC, SCAN CBC, FE and TIBC, LDH #### [address] PET tumor init tx strat wbon 03-28-2024 PET tumor init tx strat wb [facility] [address] [place] [address] Nuclear Medicine Report Signed Patient: Neil Wilcox MR#: [id number] : 1945 Acct:[id number] Age/Sex: 78 / M ADM Date: 03/28/24 [facility]: [facility]: [facility]: Bertha Cuevas MD Copies to: Saman Wylie Jr, DO Mhd Yaser Al-Marrawi, MD Ordering Provider: Bertha Cuevas MD Date [...] effusions. Impression dictated by: Saman Wylie Jr., D.ODeidre03/28/2024 1:30 PM Dictation Location: [place] [address] Transcribed By: [facility] 03/28/24 1330 Dictated By: Saman Wylie Jr, DO 03/28/24 1251 Signed By: 03/28/24 1330 Normal [facility] Poikilocytosis [Presence] in Blood by Light microscopyOrdered By: Bertha Cuevas on 03-28-2024 Poikilocytosis LM Ql (Bld) Slight [facility] Scan and CBCon 03-28-2024 Anisocytosis Ql (Bld) Slight Normal [facility] Comment on above: Performed By: #### H BSAB, HCV RX PCR, CAMILA, CU, PLT AB S, SPE, RA, HBSAG, HIV SCREEN, KAPPA, SADIE, HBCAB, SKIP SERUM #### [facility] , #### CYTOGENE, T4F, [id number], FISH NOT BLAD, MARÍA, TSH3, FLOW NEOGENOMIC, CMP, RETIC, SCAN CBC, FE and TIBC, LDH #### [address] Basophils (Bld) [#/Vol] 0.0 10*3/uL Normal 0.0-0.2 [facility] Comment on above: Performed By: #### H BSAB, HCV RX PCR, CAMILA, CU, PLT AB S, SPE, RA, HBSAG, HIV SCREEN, KAPPA, SADIE, HBCAB, SKIP SERUM #### [facility] , #### CYTOGENE, T4F, [id number], FISH NOT BLAD, MARÍA, TSH3, FLOW NEOGENOMIC, CMP, RETIC, SCAN CBC, FE and TIBC, LDH #### [address] Basophils/100 WBC (Bld) 0.4 % Normal . [facility] Comment on above: Performed By: #### H BSAB, HCV RX PCR, CAMILA, CU, PLT AB S, SPE, RA, HBSAG, HIV SCREEN, KAPPA, SADIE, HBCAB, SKIP SERUM #### [facility] , #### CYTOGENE, T4F, [id number], FISH NOT BLAD, MARÍA, TSH3, FLOW NEOGENOMIC, CMP, RETIC, SCAN CBC, FE and TIBC, LDH #### [facility] [address] [place] [address] Eosinophils (Bld) [#/Vol] 0.1 10*3/uL Normal 0.0-0.45 [facility] Comment on above: Performed By: #### H BSAB, HCV RX PCR, CAMILA, CU, PLT AB S, SPE, RA, HBSAG, HIV SCREEN, KAPPA, SADIE, HBCAB, SKIP SERUM #### [facility] , #### CYTOGENE, T4F, [id number], FISH NOT BLAD, MARÍA, TSH3, FLOW NEOGENOMIC, CMP, RETIC, SCAN CBC, FE and TIBC, LDH #### [address] Eosinophils/100 WBC (Bld) 5.2 % Normal . [facility] Comment on above: Performed By: #### H BSAB, HCV RX PCR, CAMILA, CU, PLT AB S, SPE, RA, HBSAG, HIV SCREEN, KAPPA, SADIE, HBCAB, SKIP SERUM #### [facility] , #### CYTOGENE, T4F, [id number], FISH NOT BLAD, MARÍA, TSH3, FLOW NEOGENOMIC, CMP, RETIC, SCAN CBC, FE and TIBC, LDH #### [address] Erythrocyte distribution width (RBC) [Ratio] 21.1 % High 12.0-14.8 [facility] Comment on above: Performed By: #### H BSAB, HCV RX PCR, CAMILA, CU, PLT AB S, SPE, RA, HBSAG, HIV SCREEN, KAPPA, SADIE, HBCAB, SKIP SERUM #### [facility] , #### CYTOGENE, T4F, [id number], FISH NOT BLAD, MARÍA, TSH3, FLOW NEOGENOMIC, CMP, RETIC, SCAN CBC, FE and TIBC, LDH #### [address] Hematocrit (Bld) [Volume fraction] 23.4 % Low 38.8-50.0 [facility] Comment on above: Performed By: #### H BSAB, HCV RX PCR, CAMILA, CU, PLT AB S, SPE, RA, HBSAG, HIV SCREEN, KAPPA, SADIE, HBCAB, SKIP SERUM #### [facility] , #### CYTOGENE, T4F, [id number], FISH NOT BLAD, MARÍA, TSH3, FLOW NEOGENOMIC, CMP, RETIC, SCAN CBC, FE and TIBC, LDH #### [address] Hemoglobin (Bld) [Mass/Vol] 8.1 g/dL Low 13.0-17.0 [facility] Comment on above: Performed By: #### H BSAB, HCV RX PCR, CAMILA, CU, PLT AB S, SPE, RA, HBSAG, HIV SCREEN, KAPPA, SADIE, HBCAB, SKIP SERUM #### [facility] , #### CYTOGENE, T4F, [id number], FISH NOT BLAD, MARÍA, TSH3, FLOW NEOGENOMIC, CMP, RETIC, SCAN CBC, FE and TIBC, LDH #### [address] Lymphocytes (Bld) [#/Vol] 0.4 10*3/uL Low 1.00-4.8 [facility] Comment on above: Performed By: #### H BSAB, HCV RX PCR, CAMILA, CU, PLT AB S, SPE, RA, HBSAG, HIV SCREEN, KAPPA, SADIE, HBCAB, SKIP SERUM #### [facility] , #### CYTOGENE, T4F, [id number], FISH NOT BLAD, MARÍA, TSH3, FLOW NEOGENOMIC, CMP, RETIC, SCAN CBC, FE and TIBC, LDH #### [address] Lymphocytes/100 WBC (Bld) 44.8 % Normal . [facility] Comment on above: Performed By: #### H BSAB, HCV RX PCR, CAMILA, CU, PLT AB S, SPE, RA, HBSAG, HIV SCREEN, KAPPA, SADIE, HBCAB, SKIP SERUM #### [facility] , #### CYTOGENE, T4F, [id number], FISH NOT BLAD, MARÍA, TSH3, FLOW NEOGENOMIC, CMP, RETIC, SCAN CBC, FE and TIBC, LDH #### [address] Macrocytosis Slight Normal [facility] Comment on above: Performed By: #### H BSAB, HCV RX PCR, CAMILA, CU, PLT AB S, SPE, RA, HBSAG, HIV SCREEN, KAPPA, SADIE, HBCAB, SKIP SERUM #### [facility] , #### CYTOGENE, T4F, [id number], FISH NOT BLAD, MARÍA, TSH3, FLOW NEOGENOMIC, CMP, RETIC, SCAN CBC, FE and TIBC, LDH #### [address] MCH (RBC) [Entitic mass] 33.9 pg Normal 27.5-35.2 [facility] Comment on above: Performed By: #### H BSAB, HCV RX PCR, CAMILA, CU, PLT AB S, SPE, RA, HBSAG, HIV SCREEN, KAPPA, SADIE, HBCAB, SKIP SERUM #### [facility] , #### CYTOGENE, T4F, [id number], FISH NOT BLAD, MARÍA, TSH3, FLOW NEOGENOMIC, CMP, RETIC, SCAN CBC, FE and TIBC, LDH #### [address] MCV (RBC) [Entitic vol] 97.9 fL Normal 83.5-101 [facility] Comment on above: Performed By: #### H BSAB, HCV RX PCR, CAMILA, CU, PLT AB S, SPE, RA, HBSAG, HIV SCREEN, KAPPA, SADIE, HBCAB, SKIP SERUM #### [facility] , #### CYTOGENE, T4F, [id number], FISH NOT BLAD, MARÍA, TSH3, FLOW NEOGENOMIC, CMP, RETIC, SCAN CBC, FE and TIBC, LDH #### [address] Mean Corpuscular HGB Conc 34.6 g/dL Normal 32.5-35.6 [facility] Comment on above: Performed By: #### H BSAB, HCV RX PCR, CAMILA, CU, PLT AB S, SPE, RA, HBSAG, HIV SCREEN, KAPPA, SADIE, HBCAB, SKIP SERUM #### [facility] , #### CYTOGENE, T4F, [id number], FISH NOT BLAD, MARÍA, TSH3, FLOW NEOGENOMIC, CMP, RETIC, SCAN CBC, FE and TIBC, LDH #### [address] Monocytes (Bld) [#/Vol] 0.0 10*3/uL Normal 0.0-0.8 [facility] Comment on above: Performed By: #### H BSAB, HCV RX PCR, CAMILA, CU, PLT AB S, SPE, RA, HBSAG, HIV SCREEN, KAPPA, SADIE, HBCAB, SKIP SERUM #### [facility] , #### CYTOGENE, T4F, [id number], FISH NOT BLAD, MARÍA, TSH3, FLOW NEOGENOMIC, CMP, RETIC, SCAN CBC, FE and TIBC, LDH #### [address] Monocytes/100 WBC (Bld) 0.7 % Normal . [facility] Comment on above: Performed By: #### H BSAB, HCV RX PCR, CAMILA, CU, PLT AB S, SPE, RA, HBSAG, HIV SCREEN, KAPPA, SADIE, HBCAB, SKIP SERUM #### [facility] , #### CYTOGENE, T4F, [id number], FISH NOT BLAD, MARÍA, TSH3, FLOW NEOGENOMIC, CMP, RETIC, SCAN CBC, FE and TIBC, LDH #### [address] Neutrophils (Bld) [#/Vol] 0.5 10*3/uL Low 1.8-7.7 [facility] Comment on above: Performed By: #### H BSAB, HCV RX PCR, CAMILA, CU, PLT AB S, SPE, RA, HBSAG, HIV SCREEN, KAPPA, SADIE, HBCAB, SKIP SERUM #### [facility] , #### CYTOGENE, T4F, [id number], FISH NOT BLAD, MARÍA, TSH3, FLOW NEOGENOMIC, CMP, RETIC, SCAN CBC, FE and TIBC, LDH #### [address] Neutrophils/100 WBC (Bld) 48.9 % Normal . [facility] Comment on above: Performed By: #### H BSAB, HCV RX PCR, CAMILA, CU, PLT AB S, SPE, RA, HBSAG, HIV SCREEN, KAPPA, SADIE, HBCAB, SKIP SERUM #### [facility] , #### CYTOGENE, T4F, [id number], FISH NOT BLAD, MARÍA, TSH3, FLOW NEOGENOMIC, CMP, RETIC, SCAN CBC, FE and TIBC, LDH #### [address] NRBC% 0.7 /100{WBC} High 0-0.5 [facility] Comment on above: Performed By: #### H BSAB, HCV RX PCR, CAMILA, CU, PLT AB S, SPE, RA, HBSAG, HIV SCREEN, KAPPA, SADIE, HBCAB, SKIP SERUM #### [facility] , #### CYTOGENE, T4F, [id number], FISH NOT BLAD, MARÍA, TSH3, FLOW NEOGENOMIC, CMP, RETIC, SCAN CBC, FE and TIBC, LDH #### [address] Platelet Estimate Decreased Normal Normal [facility] Comment on above: Performed By: #### H BSAB, HCV RX PCR, CAMILA, CU, PLT AB S, SPE, RA, HBSAG, HIV SCREEN, KAPPA, SADIE, HBCAB, SKIP SERUM #### [facility] , #### CYTOGENE, T4F, [id number], FISH NOT BLAD, MARÍA, TSH3, FLOW NEOGENOMIC, CMP, RETIC, SCAN CBC, FE and TIBC, LDH #### [address] Platelet mean volume (Bld) [Entitic vol] 7.8 fL Normal 6.6-10.1 [facility] Comment on above: Performed By: #### H BSAB, HCV RX PCR, CAMILA, CU, PLT AB S, SPE, RA, HBSAG, HIV SCREEN, KAPPA, SADIE, HBCAB, SKIP SERUM #### [facility] , #### CYTOGENE, T4F, [id number], FISH NOT BLAD, MARÍA, TSH3, FLOW NEOGENOMIC, CMP, RETIC, SCAN CBC, FE and TIBC, LDH #### [address] Platelet Morphology Normal Normal Normal [facility] Comment on above: Result Comment: PERF ORMED BY: [place] [address] PATHOLOGIST CRYOGENICS REPAIRER OTTO HARLEY M.D. Performed By: #### H BSAB, HCV RX PCR, CAMILA, CU, PLT AB S, SPE, RA, HBSAG, HIV SCREEN, KAPPA, SADIE, HBCAB, SKIP SERUM #### [facility] , #### CYTOGENE, T4F, [id number], FISH NOT BLAD, MARÍA, TSH3, FLOW NEOGENOMIC, CMP, RETIC, SCAN CBC, FE and TIBC, LDH #### [address] Platelets (Bld) [#/Vol] 37 10*3/uL Off scale low 150-450 [facility] Comment on above: Result Comment: Crit ical value [place] called at 0840 on 03/28/24 Performed By: #### H BSAB, HCV RX PCR, CAMILA, CU, PLT AB S, SPE, RA, HBSAG, HIV SCREEN, KAPPA, SADIE, HBCAB, SKIP SERUM #### [facility] , #### CYTOGENE, T4F, [id number], FISH NOT BLAD, MARÍA, TSH3, FLOW NEOGENOMIC, CMP, RETIC, SCAN CBC, FE and TIBC, LDH #### [address] Poikilocytosis Slight Normal [facility] Comment on above: Performed By: #### H BSAB, HCV RX PCR, CAMILA, CU, PLT AB S, SPE, RA, HBSAG, HIV SCREEN, KAPPA, SADIE, HBCAB, SKIP SERUM #### [facility] , #### CYTOGENE, T4F, [id number], FISH NOT BLAD, MARÍA, TSH3, FLOW NEOGENOMIC, CMP, RETIC, SCAN CBC, FE and TIBC, LDH #### [address] RBC (Bld) [#/Vol] 2.40 10*6/uL Low 3.90-5.60 [facility] Comment on above: Performed By: #### H BSAB, HCV RX PCR, CAMILA, CU, PLT AB S, SPE, RA, HBSAG, HIV SCREEN, KAPPA, SADIE, HBCAB, SKIP SERUM #### [facility] , #### CYTOGENE, T4F, [id number], FISH NOT BLAD, MARÍA, TSH3, FLOW NEOGENOMIC, CMP, RETIC, SCAN CBC, FE and TIBC, LDH #### [address] Schistocytes Slight Normal [facility] Comment on above: Performed By: #### H BSAB, HCV RX PCR, CAMILA, CU, PLT AB S, SPE, RA, HBSAG, HIV SCREEN, KAPPA, SADIE, HBCAB, SKIP SERUM #### [facility] , #### CYTOGENE, T4F, [id number], FISH NOT BLAD, MARÍA, TSH3, FLOW NEOGENOMIC, CMP, RETIC, SCAN CBC, FE and TIBC, LDH #### [address] WBC (Bld) [#/Vol] 1.0 10*3/uL Low 4.1-10.5 [facility] Comment on above: Performed By: #### H BSAB, HCV RX PCR, CAMILA, CU, PLT AB S, SPE, RA, HBSAG, HIV SCREEN, KAPPA, SADIE, HBCAB, SKIP SERUM #### [facility] , #### CYTOGENE, T4F, [id number], FISH NOT BLAD, MARÍA, TSH3, FLOW NEOGENOMIC, CMP, RETIC, SCAN CBC, FE and TIBC, LDH #### [facility] [address] Schistocytes [Presence] in B lood by Light microscopyOrdered By: Bertha Cuevas on 03-28-2024 Schistocytes LM Ql (Bld) Slight [facility] Comprehensive Metabolic Pane melvin 03-20-2024 Albumin [Mass/Vol] 3.0 g/dL Low 3.5-5.7 [facility] Comment on above: Performed By: #### H BSAB, HCV RX PCR, CAMILA, CU, PLT AB S, SPE, RA, HBSAG, HIV SCREEN, KAPPA, SADIE, HBCAB, SKIP SERUM #### [facility] , #### CYTOGENE, T4F, [id number], FISH NOT BLAD, MARÍA, TSH3, FLOW NEOGENOMIC, CMP, RETIC, SCAN CBC, FE and TIBC, LDH #### [facility] [address] Albumin/Globulin [Mass ratio] 0.5 {ratio} Normal [facility] Comment on above: Performed By: #### H BSAB, HCV RX PCR, CAMILA, CU, PLT AB S, SPE, RA, HBSAG, HIV SCREEN, KAPPA, SADIE, HBCAB, SKIP SERUM #### [facility] , #### CYTOGENE, T4F, [id number], FISH NOT BLAD, MARÍA, TSH3, FLOW NEOGENOMIC, CMP, RETIC, SCAN CBC, FE and TIBC, LDH #### [facility] [address] ALP [Catalytic activity/Vol] 63 U/L Normal 34-104 [facility] Comment on above: Performed By: #### H BSAB, HCV RX PCR, CAMILA, CU, PLT AB S, SPE, RA, HBSAG, HIV SCREEN, KAPPA, SADIE, HBCAB, SKIP SERUM #### [facility] , #### CYTOGENE, T4F, [id number], FISH NOT BLAD, MARÍA, TSH3, FLOW NEOGENOMIC, CMP, RETIC, SCAN CBC, FE and TIBC, LDH #### [address] ALT [Catalytic activity/Vol] 10 U/L Normal 7-52 [facility] Comment on above: Performed By: #### H BSAB, HCV RX PCR, CAMILA, CU, PLT AB S, SPE, RA, HBSAG, HIV SCREEN, KAPPA, SADIE, HBCAB, SKIP SERUM #### [facility] , #### CYTOGENE, T4F, [id number], FISH NOT BLAD, MARÍA, TSH3, FLOW NEOGENOMIC, CMP, RETIC, SCAN CBC, FE and TIBC, LDH #### [address] Anion gap [Moles/Vol] Not performed Normal 6.0-15.0 [facility] Comment on above: Performed By: #### H BSAB, HCV RX PCR, CAMILA, CU, PLT AB S, SPE, RA, HBSAG, HIV SCREEN, KAPPA, SADIE, HBCAB, SKIP SERUM #### [facility] , #### CYTOGENE, T4F, [id number], FISH NOT BLAD, MARÍA, TSH3, FLOW NEOGENOMIC, CMP, RETIC, SCAN CBC, FE and TIBC, LDH #### [address] Aspartate Amino Transferase Normal 13-39 [facility] Comment on above: Result Comment: Spec imen hemolyzed, redraw requested Performed By: #### H BSAB, HCV RX PCR, CAMILA, CU, PLT AB S, SPE, RA, HBSAG, HIV SCREEN, KAPPA, SADIE, HBCAB, SKIP SERUM #### [facility] , #### CYTOGENE, T4F, [id number], FISH NOT BLAD, MARÍA, TSH3, FLOW NEOGENOMIC, CMP, RETIC, SCAN CBC, FE and TIBC, LDH #### [address] Bilirubin [Mass/Vol] 0.4 mg/dL Normal 0.3-1.0 [facility] Comment on above: Performed By: #### H BSAB, HCV RX PCR, CAMILA, CU, PLT AB S, SPE, RA, HBSAG, HIV SCREEN, KAPPA, SADIE, HBCAB, SKIP SERUM #### [facility] , #### CYTOGENE, T4F, [id number], FISH NOT BLAD, MARÍA, TSH3, FLOW NEOGENOMIC, CMP, RETIC, SCAN CBC, FE and TIBC, LDH #### [address] Calcium [Mass/Vol] 9.0 mg/dL Normal 8.6-10.3 [facility] Comment on above: Performed By: #### H BSAB, HCV RX PCR, CAMILA, CU, PLT AB S, SPE, RA, HBSAG, HIV SCREEN, KAPPA, SADIE, HBCAB, SKIP SERUM #### [facility] , #### CYTOGENE, T4F, [id number], FISH NOT BLAD, MARÍA, TSH3, FLOW NEOGENOMIC, CMP, RETIC, SCAN CBC, FE and TIBC, LDH #### [address] Chloride [Moles/Vol] 103 mmol/L Normal 98-107 [facility] Comment on above: Performed By: #### H BSAB, HCV RX PCR, CAMILA, CU, PLT AB S, SPE, RA, HBSAG, HIV SCREEN, KAPPA, SADIE, HBCAB, SKIP SERUM #### [facility] , #### CYTOGENE, T4F, [id number], FISH NOT BLAD, MARÍA, TSH3, FLOW NEOGENOMIC, CMP, RETIC, SCAN CBC, FE and TIBC, LDH #### [address] CO2 [Moles/Vol] 24.1 mmol/L Normal 21.0-31.0 [facility] Comment on above: Performed By: #### H BSAB, HCV RX PCR, CAMILA, CU, PLT AB S, SPE, RA, HBSAG, HIV SCREEN, KAPPA, SADIE, HBCAB, SKIP SERUM #### [facility] , #### CYTOGENE, T4F, [id number], FISH NOT BLAD, MARÍA, TSH3, FLOW NEOGENOMIC, CMP, RETIC, SCAN CBC, FE and TIBC, LDH #### [address] Creatinine [Mass/Vol] 1.18 mg/dL Normal 0.70-1.30 [facility] Comment on above: Performed By: #### H BSAB, HCV RX PCR, CAMILA, CU, PLT AB S, SPE, RA, HBSAG, HIV SCREEN, KAPPA, SADIE, HBCAB, SKIP SERUM #### [facility] , #### CYTOGENE, T4F, [id number], FISH NOT BLAD, MARÍA, TSH3, FLOW NEOGENOMIC, CMP, RETIC, SCAN CBC, FE and TIBC, LDH #### [address] Creatinine Clr Calc Pharmacy 53.26 Normal [facility] Comment on above: Result Comment: PERF ORMED BY: [place] [address] PATHOLOGIST CRYOGENICS REPAIRER OTTO HARLEY M.D. Performed By: #### H BSAB, HCV RX PCR, CAMILA, CU, PLT AB S, SPE, RA, HBSAG, HIV SCREEN, KAPPA, SADIE, HBCAB, SKIP SERUM #### [facility] , #### CYTOGENE, T4F, [id number], FISH NOT BLAD, MARÍA, TSH3, FLOW NEOGENOMIC, CMP, RETIC, SCAN CBC, FE and TIBC, LDH #### [address] GFR/1.73 sq M.predicted MDRD (S/P/Bld) [Vol rate/Area] mL/min/{1.73_m2} Normal [facility] Comment on above: Performed By: #### H BSAB, HCV RX PCR, CAMILA, CU, PLT AB S, SPE, RA, HBSAG, HIV SCREEN, KAPPA, SADIE, HBCAB, SKIP SERUM #### [facility] , #### CYTOGENE, T4F, [id number], FISH NOT BLAD, MARÍA, TSH3, FLOW NEOGENOMIC, CMP, RETIC, SCAN CBC, FE and TIBC, LDH #### [facility] [address] Globulin (S) [Mass/Vol] 5.7 g/dL Normal [facility] Comment on above: Performed By: #### H BSAB, HCV RX PCR, CAMILA, CU, PLT AB S, SPE, RA, HBSAG, HIV SCREEN, KAPPA, SADIE, HBCAB, SKIP SERUM #### [facility] , #### CYTOGENE, T4F, [id number], FISH NOT BLAD, MARÍA, TSH3, FLOW NEOGENOMIC, CMP, RETIC, SCAN CBC, FE and TIBC, LDH #### [facility] [address] Glucose [Mass/Vol] 103 mg/dL High 70-100 [facility] Comment on above: Result Comment: [facility][note 3] Glucose Reference Range is dependent on time and content of last meal. Glucose of more than 200 mg/dL in a nonstressed, ambulatory subject supports the diagnosis of Diabetes Mellitus. ADA recommended reference range Performed By: #### H BSAB, HCV RX PCR, CAMILA, CU, PLT AB S, SPE, RA, HBSAG, HIV SCREEN, KAPPA, SADIE, HBCAB, SKIP SERUM #### [facility] , #### CYTOGENE, T4F, [id number], FISH NOT BLAD, MARÍA, TSH3, FLOW NEOGENOMIC, CMP, RETIC, SCAN CBC, FE and TIBC, LDH #### [facility] [address] Potassium Normal 3.5-5.1 [facility] Comment on above: Result Comment: Spec imen hemolyzed, redraw requested Performed By: #### H BSAB, HCV RX PCR, CAMILA, CU, PLT AB S, SPE, RA, HBSAG, HIV SCREEN, KAPPA, SADIE, HBCAB, SKIP SERUM #### [facility] , #### CYTOGENE, T4F, [id number], FISH NOT BLAD, MARÍA, TSH3, FLOW NEOGENOMIC, CMP, RETIC, SCAN CBC, FE and TIBC, LDH #### [facility] [address] Protein [Mass/Vol] 8.7 g/dL Normal 6.4-8.9 [facility] Comment on above: Performed By: #### H BSAB, HCV RX PCR, CAMILA, CU, PLT AB S, SPE, RA, HBSAG, HIV SCREEN, KAPPA, SADIE, HBCAB, SKIP SERUM #### [facility] , #### CYTOGENE, T4F, [id number], FISH NOT BLAD, MARÍA, TSH3, FLOW NEOGENOMIC, CMP, RETIC, SCAN CBC, FE and TIBC, LDH #### [facility] [address] Sodium [Moles/Vol] 136 mmol/L Normal 136-145 [facility] Comment on above: Performed By: #### H BSAB, HCV RX PCR, CAMILA, CU, PLT AB S, SPE, RA, HBSAG, HIV SCREEN, KAPPA, SADIE, HBCAB, SKIP SERUM #### [facility] , #### CYTOGENE, T4F, [id number], FISH NOT BLAD, MARÍA, TSH3, FLOW NEOGENOMIC, CMP, RETIC, SCAN CBC, FE and TIBC, LDH #### [facility] [address] Urea nitrogen [Mass/Vol] 19 mg/dL Normal 7-25 [facility] Comment on above: Performed By: #### H BSAB, HCV RX PCR, CAMILA, CU, PLT AB S, SPE, RA, HBSAG, HIV SCREEN, KAPPA, SADIE, HBCAB, SKIP SERUM #### [facility] , #### CYTOGENE, T4F, [id number], FISH NOT BLAD, MARÍA, TSH3, FLOW NEOGENOMIC, CMP, RETIC, SCAN CBC, FE and TIBC, LDH #### [address] Daratumumab Molecular Genoty peon 03-20-2024 Daratumumab Molecular Genotype Normal [facility] Comment on above: Result Comment: Sent to [facility] [place] for further testing. Final report to follow. PERFORMED BY: [place] [address] PATHOLOGIST CRYOGENICS REPAIRER OTTO HARLEY M.D. Diff and CBCon 03-20-2024 Anisocytosis Ql (Bld) Slight Normal [facility] Comment on above: Performed By: #### H BSAB, HCV RX PCR, CAMILA, CU, PLT AB S, SPE, RA, HBSAG, HIV SCREEN, KAPPA, SADIE, HBCAB, SKIP SERUM #### [facility] , #### CYTOGENE, T4F, [id number], FISH NOT BLAD, MARÍA, TSH3, FLOW NEOGENOMIC, CMP, RETIC, SCAN CBC, FE and TIBC, LDH #### [address] Erythrocyte distribution width (RBC) [Ratio] 20.6 % High 12.0-14.8 [facility] Comment on above: Performed By: #### H BSAB, HCV RX PCR, CAMILA, CU, PLT AB S, SPE, RA, HBSAG, HIV SCREEN, KAPPA, SADIE, HBCAB, SKIP SERUM #### [facility] , #### CYTOGENE, T4F, [id number], FISH NOT BLAD, MARÍA, TSH3, FLOW NEOGENOMIC, CMP, RETIC, SCAN CBC, FE and TIBC, LDH #### [address] Giant Platelet Tally 1 /100{WBC} Normal [facility] Comment on above: Performed By: #### H BSAB, HCV RX PCR, CAMILA, CU, PLT AB S, SPE, RA, HBSAG, HIV SCREEN, KAPPA, SADIE, HBCAB, SKIP SERUM #### [facility] , #### CYTOGENE, T4F, [id number], FISH NOT BLAD, MARÍA, TSH3, FLOW NEOGENOMIC, CMP, RETIC, SCAN CBC, FE and TIBC, LDH #### [facility] [address] Hematocrit (Bld) [Volume fraction] 26.3 % Low 38.8-50.0 [facility] Comment on above: Performed By: #### H BSAB, HCV RX PCR, CAMILA, CU, PLT AB S, SPE, RA, HBSAG, HIV SCREEN, KAPPA, SADIE, HBCAB, SKIP SERUM #### [facility] , #### CYTOGENE, T4F, [id number], FISH NOT BLAD, MARÍA, TSH3, FLOW NEOGENOMIC, CMP, RETIC, SCAN CBC, FE and TIBC, LDH #### [address] Hemoglobin (Bld) [Mass/Vol] 9.1 g/dL Low 13.0-17.0 [facility] Comment on above: Performed By: #### H BSAB, HCV RX PCR, CAMILA, CU, PLT AB S, SPE, RA, HBSAG, HIV SCREEN, KAPPA, SADIE, HBCAB, SKIP SERUM #### [facility] , #### CYTOGENE, T4F, [id number], FISH NOT BLAD, MARÍA, TSH3, FLOW NEOGENOMIC, CMP, RETIC, SCAN CBC, FE and TIBC, LDH #### [address] MCH (RBC) [Entitic mass] 34.1 pg Normal 27.5-35.2 [facility] Comment on above: Performed By: #### H BSAB, HCV RX PCR, CAMILA, CU, PLT AB S, SPE, RA, HBSAG, HIV SCREEN, KAPPA, SADIE, HBCAB, SKIP SERUM #### [facility] , #### CYTOGENE, T4F, [id number], FISH NOT BLAD, MARÍA, TSH3, FLOW NEOGENOMIC, CMP, RETIC, SCAN CBC, FE and TIBC, LDH #### [address] MCV (RBC) [Entitic vol] 98.6 fL Normal 83.5-101 [facility] Comment on above: Performed By: #### H BSAB, HCV RX PCR, CAMILA, CU, PLT AB S, SPE, RA, HBSAG, HIV SCREEN, KAPPA, SADIE, HBCAB, SKIP SERUM #### [facility] , #### CYTOGENE, T4F, [id number], FISH NOT BLAD, MARÍA, TSH3, FLOW NEOGENOMIC, CMP, RETIC, SCAN CBC, FE and TIBC, LDH #### [address] Mean Corpuscular HGB Conc 34.6 g/dL Normal 32.5-35.6 [facility] Comment on above: Performed By: #### H BSAB, HCV RX PCR, CAMILA, CU, PLT AB S, SPE, RA, HBSAG, HIV SCREEN, KAPPA, SADIE, HBCAB, SKIP SERUM #### [facility] , #### CYTOGENE, T4F, [id number], FISH NOT BLAD, MARÍA, TSH3, FLOW NEOGENOMIC, CMP, RETIC, SCAN CBC, FE and TIBC, LDH #### [address] Platelet Estimate Decreased Normal Normal [facility] Comment on above: Performed By: #### H BSAB, HCV RX PCR, CAMILA, CU, PLT AB S, SPE, RA, HBSAG, HIV SCREEN, KAPPA, SADIE, HBCAB, SKIP SERUM #### [facility] , #### CYTOGENE, T4F, [id number], FISH NOT BLAD, MARÍA, TSH3, FLOW NEOGENOMIC, CMP, RETIC, SCAN CBC, FE and TIBC, LDH #### [address] Platelet mean volume (Bld) [Entitic vol] 8.5 fL Normal 6.6-10.1 [facility] Comment on above: Result Comment: PERF ORMED BY: [place] [address] PATHOLOGIST CRYOGENICS REPAIRER OTTO HARLEY M.D. Performed By: #### H BSAB, HCV RX PCR, CAMILA, CU, PLT AB S, SPE, RA, HBSAG, HIV SCREEN, KAPPA, SADIE, HBCAB, SKIP SERUM #### [facility] , #### CYTOGENE, T4F, [id number], FISH NOT BLAD, MARÍA, TSH3, FLOW NEOGENOMIC, CMP, RETIC, SCAN CBC, FE and TIBC, LDH #### [facility] [address] [place] [address] Platelet Morphology Normal Normal Normal [facility] Comment on above: Result Comment: PERF ORMED BY: [place] [address] PATHOLOGIST CRYOGENICS REPAIRER OTTO HARLEY M.D. Performed By: #### H BSAB, HCV RX PCR, CAMILA, CU, PLT AB S, SPE, RA, HBSAG, HIV SCREEN, KAPPA, SADIE, HBCAB, SKIP SERUM #### [facility] , #### CYTOGENE, T4F, [id number], FISH NOT BLAD, MARÍA, TSH3, FLOW NEOGENOMIC, CMP, RETIC, SCAN CBC, FE and TIBC, LDH #### [facility] [address] [place] [address] Platelets (Bld) [#/Vol] 81 10*3/uL Low 150-450 [facility] Comment on above: Performed By: #### H BSAB, HCV RX PCR, CAMILA, CU, PLT AB S, SPE, RA, HBSAG, HIV SCREEN, KAPPA, SADIE, HBCAB, SKIP SERUM #### [facility] , #### CYTOGENE, T4F, [id number], FISH NOT BLAD, MARÍA, TSH3, FLOW NEOGENOMIC, CMP, RETIC, SCAN CBC, FE and TIBC, LDH #### [address] Poikilocytosis Slight Normal [facility] Comment on above: Performed By: #### H BSAB, HCV RX PCR, CAMILA, CU, PLT AB S, SPE, RA, HBSAG, HIV SCREEN, KAPPA, SADIE, HBCAB, SKIP SERUM #### [facility] , #### CYTOGENE, T4F, [id number], FISH NOT BLAD, MARÍA, TSH3, FLOW NEOGENOMIC, CMP, RETIC, SCAN CBC, FE and TIBC, LDH #### [address] Polychromasia Slight Normal [facility] Comment on above: Performed By: #### H BSAB, HCV RX PCR, CAMILA, CU, PLT AB S, SPE, RA, HBSAG, HIV SCREEN, KAPPA, SADIE, HBCAB, SKIP SERUM #### [facility] , #### CYTOGENE, T4F, [id number], FISH NOT BLAD, MARÍA, TSH3, FLOW NEOGENOMIC, CMP, RETIC, SCAN CBC, FE and TIBC, LDH #### [address] RBC (Bld) [#/Vol] 2.67 10*6/uL Low 3.90-5.60 [facility] Comment on above: Performed By: #### H BSAB, HCV RX PCR, CAMILA, CU, PLT AB S, SPE, RA, HBSAG, HIV SCREEN, KAPPA, SADIE, HBCAB, SKIP SERUM #### [facility] , #### CYTOGENE, T4F, [id number], FISH NOT BLAD, MARÍA, TSH3, FLOW NEOGENOMIC, CMP, RETIC, SCAN CBC, FE and TIBC, LDH #### [address] Reactive Lymphocytes 1 % Normal 0-12 [facility] Comment on above: Performed By: #### H BSAB, HCV RX PCR, CAMILA, CU, PLT AB S, SPE, RA, HBSAG, HIV SCREEN, KAPPA, SADIE, HBCAB, SKIP SERUM #### [facility] , #### CYTOGENE, T4F, [id number], FISH NOT BLAD, MARÍA, TSH3, FLOW NEOGENOMIC, CMP, RETIC, SCAN CBC, FE and TIBC, LDH #### [facility] [address] [place] [address] [place] Rouleaux Slight Normal [facility] Comment on above: Performed By: #### H BSAB, HCV RX PCR, CAMILA, CU, PLT AB S, SPE, RA, HBSAG, HIV SCREEN, KAPPA, SADIE, HBCAB, SKIP SERUM #### [facility] , #### CYTOGENE, T4F, [id number], FISH NOT BLAD, MARÍA, TSH3, FLOW NEOGENOMIC, CMP, RETIC, SCAN CBC, FE and TIBC, LDH #### [address] WBC (Bld) [#/Vol] 1.8 10*3/uL Low 4.1-10.5 [facility] Comment on above: Performed By: #### H BSAB, HCV RX PCR, CAMILA, CU, PLT AB S, SPE, RA, HBSAG, HIV SCREEN, KAPPA, SADIE, HBCAB, SKIP SERUM #### [facility] , #### CYTOGENE, T4F, [id number], FISH NOT BLAD, MARÍA, TSH3, FLOW NEOGENOMIC, CMP, RETIC, SCAN CBC, FE and TIBC, LDH #### [address] Eosinophils/100 leukocytes i n Blood by Manual countOrdered By: Bertha Cuevas on 03-20-2024 Eosinophils/100 WBC (Bld) 5 % High 1-3 [facility] Comment on above: Performed By: #### H BSAB, HCV RX PCR, CAMILA, CU, PLT AB S, SPE, RA, HBSAG, HIV SCREEN, KAPPA, SADIE, HBCAB, SKIP SERUM #### [facility] , #### CYTOGENE, T4F, [id number], FISH NOT BLAD, MARÍA, TSH3, FLOW NEOGENOMIC, CMP, RETIC, SCAN CBC, FE and TIBC, LDH #### [facility] [address] [place] [address] [place] Giant platelets/100 leukocyt es [Ratio] in Blood by Manual countOrdered By: artem Cuevas on 03-20-2024 Giant platelets/100 WBC Manual cnt (Bld) [Ratio] 1 /100{WBC} [facility] Lymphocytes/100 leukocytes i n Blood by Manual countOrdered By: artem Cuevas on 03-20-2024 Lymphocytes/100 WBC (Bld) 63 % High 18-42 [facility] Comment on above: Performed By: #### H BSAB, HCV RX PCR, CAMILA, CU, PLT AB S, SPE, RA, HBSAG, HIV SCREEN, KAPPA, SADIE, HBCAB, SKIP SERUM #### [facility] , #### CYTOGENE, T4F, [id number], FISH NOT BLAD, MARÍA, TSH3, FLOW NEOGENOMIC, CMP, RETIC, SCAN CBC, FE and TIBC, LDH #### [facility] [address] Manual blood segmented neutr ophils/100 leukocytesOrdered By: artem Cuevas on 03-20-2024 Segmented neutrophils/100 WBC (Bld) 30 % Low 50-70 [facility] Comment on above: Performed By: #### H BSAB, HCV RX PCR, CAMILA, CU, PLT AB S, SPE, RA, HBSAG, HIV SCREEN, KAPPA, SADIE, HBCAB, SKIP SERUM #### [facility] , #### CYTOGENE, T4F, [id number], FISH NOT BLAD, MARÍA, TSH3, FLOW NEOGENOMIC, CMP, RETIC, SCAN CBC, FE and TIBC, LDH #### [place] [address] [place] Monocytes/100 WBC Manual cnt (Bld)Ordered By: artem Cuevas on 03-20-2024 Monocytes/100 WBC (Bld) N/A [facility] Peripheral white blood cell differential % bands, microscopic examOrdered By: Bertha Cuevas on 03-20-2024 Band form neutrophils/100 WBC (Bld) 2 % Normal 0-5 [facility] Comment on above: Performed By: #### H BSAB, HCV RX PCR, CAMILA, CU, PLT AB S, SPE, RA, HBSAG, HIV SCREEN, KAPPA, SADIE, HBCAB, SKIP SERUM #### [facility] , #### CYTOGENE, T4F, [id number], FISH NOT BLAD, MARÍA, TSH3, FLOW NEOGENOMIC, CMP, RETIC, SCAN CBC, FE and TIBC, LDH #### [facility] [address] [place] [address] [place] Polychromasia [Presence] in Blood by Light microscopyOrdered By: Bertha Cuevas on 03-20-2024 Polychromasia LM Ql (Bld) Slight [facility] Rouleaux detectionOrdered By : Bertha Cuevas on 03-20-2024 Rouleaux LM Ql (Bld) [facility] Variant lymphocytes/100 WBC Manual cnt (Bld)Ordered By: artem Cuevas on 03-20-2024 Variant lymphocytes/100 WBC (Bld) 1 % 0-12 [facility] Alanine aminotransferase [En zymatic activity/volume] in Serum or PlasmaOrdered By: Vijay Aguilar on 03-09-2024 ALT [Catalytic activity/Vol] 10 U/L Normal 7-52 [facility] Comment on above: Performed By: #### H BSAB, HCV RX PCR, CAMILA, CU, PLT AB S, SPE, RA, HBSAG, HIV SCREEN, KAPPA, SADIE, HBCAB, SKIP SERUM #### [facility] , #### CYTOGENE, T4F, [id number], FISH NOT BLAD, MARÍA, TSH3, FLOW NEOGENOMIC, CMP, RETIC, SCAN CBC, FE and TIBC, LDH #### [facility] [address] [place] [address] [place] Albumin [Mass/volume] in Ser um or Plasma by Bromocresol green (BCG) dye binding methoOrdered By: Vijay Aguilar on 03-09-2024 Albumin BCG dye [Mass/Vol] 2.7 g/dL Low 3.5-5.7 [facility] Alkaline phosphatase [Enzyma tic activity/volume] in Serum or PlasmaOrdered By: Vijay Aguilar on 03-09-2024 ALP [Catalytic activity/Vol] 50 U/L Normal 34-104 [facility] Comment on above: Performed By: #### H BSAB, HCV RX PCR, CAMILA, CU, PLT AB S, SPE, RA, HBSAG, HIV SCREEN, KAPPA, SADIE, HBCAB, SKIP SERUM #### [facility] , #### CYTOGENE, T4F, [id number], FISH NOT BLAD, MARÍA, TSH3, FLOW NEOGENOMIC, CMP, RETIC, SCAN CBC, FE and TIBC, LDH #### [facility] [address] [place] [address] [place] Anisocytosis [Presence] in B lood by Light microscopyOrdered By: Roslyn Townsend on 03-09-2024 Anisocytosis Ql (Bld) Slight Normal [facility] Comment on above: Performed By: #### H BSAB, HCV RX PCR, CAMILA, CU, PLT AB S, SPE, RA, HBSAG, HIV SCREEN, KAPPA, SADIE, HBCAB, SKIP SERUM #### [facility] , #### CYTOGENE, T4F, [id number], FISH NOT BLAD, MARÍA, TSH3, FLOW NEOGENOMIC, CMP, RETIC, SCAN CBC, FE and TIBC, LDH #### [facility] [address] [place] [address] [place] Aspartate aminotransferase [ Enzymatic activity/volume] in Serum or PlasmaOrdered By: Vijay Aguilar on 03-09-2024 AST [Catalytic activity/Vol] 11 U/L Low 13-39 [facility] Comment on above: Performed By: #### H BSAB, HCV RX PCR, CAMILA, CU, PLT AB S, SPE, RA, HBSAG, HIV SCREEN, KAPPA, SADIE, HBCAB, SKIP SERUM #### [facility] , #### CYTOGENE, T4F, [id number], FISH NOT BLAD, MARÍA, TSH3, FLOW NEOGENOMIC, CMP, RETIC, SCAN CBC, FE and TIBC, LDH #### [facility] [address] Basophils Auto (Bld) [#/Vol] Ordered By: Roslyn Townsend on 03-09-2024 Basophils (Bld) [#/Vol] N/A [facility] Basophils/100 WBC Auto (Bld) Ordered By: Roslyn Townsend on 03-09-2024 Basophils/100 WBC (Bld) N/A [facility] Basophils/100 leukocytes in Blood by Manual countOrdered By: Roslyn Townsend on 03-09-2024 Basophils/100 WBC (Bld) 0 % Normal 0-2 [facility] Comment on above: Performed By: #### H BSAB, HCV RX PCR, CAMILA, CU, PLT AB S, SPE, RA, HBSAG, HIV SCREEN, KAPPA, SADIE, HBCAB, SKIP SERUM #### [facility] , #### CYTOGENE, T4F, [id number], FISH NOT BLAD, MARÍA, TSH3, FLOW NEOGENOMIC, CMP, RETIC, SCAN CBC, FE and TIBC, LDH #### [address] Bilirubin.total [Mass/volume ] in Serum or PlasmaOrdered By: Vijay Aguilar on 03-09-2024 Bilirubin [Mass/Vol] 0.5 mg/dL Normal 0.3-1.0 [facility] Comment on above: Performed By: #### H BSAB, HCV RX PCR, CAMILA, CU, PLT AB S, SPE, RA, HBSAG, HIV SCREEN, KAPPA, SADIE, HBCAB, SKIP SERUM #### [facility] , #### CYTOGENE, T4F, [id number], FISH NOT BLAD, MARÍA, TSH3, FLOW NEOGENOMIC, CMP, RETIC, SCAN CBC, FE and TIBC, LDH #### [facility] [address] [place] [address] [place] Calcium [Mass/volume] in Ser um or PlasmaOrdered By: Vijay Aguilar on 03-09-2024 Calcium [Mass/Vol] 7.7 mg/dL Low 8.6-10.3 [facility] Comment on above: Performed By: #### H BSAB, HCV RX PCR, CAMILA, CU, PLT AB S, SPE, RA, HBSAG, HIV SCREEN, KAPPA, SADIE, HBCAB, SKIP SERUM #### [facility] , #### CYTOGENE, T4F, [id number], FISH NOT BLAD, MARÍA, TSH3, FLOW NEOGENOMIC, CMP, RETIC, SCAN CBC, FE and TIBC, LDH #### [facility] [address] Carbon dioxide, total [Moles /volume] in Serum or PlasmaOrdered By: Vijay Aguilar on 03-09-2024 CO2 [Moles/Vol] 19.1 mmol/L Low 21.0-31.0 [facility] Comment on above: Performed By: #### H BSAB, HCV RX PCR, CAMILA, CU, PLT AB S, SPE, RA, HBSAG, HIV SCREEN, KAPPA, SADIE, HBCAB, SKIP SERUM #### [facility] , #### CYTOGENE, T4F, [id number], FISH NOT BLAD, MARÍA, TSH3, FLOW NEOGENOMIC, CMP, RETIC, SCAN CBC, FE and TIBC, LDH #### [facility] [address] [place] [address] [place] Chloride [Moles/volume] in S dustin or PlasmaOrdered By: Vijay Aguilar on 03-09-2024 Chloride [Moles/Vol] 107 mmol/L Normal 98-107 [facility] Comment on above: Performed By: #### H BSAB, HCV RX PCR, CAMILA, CU, PLT AB S, SPE, RA, HBSAG, HIV SCREEN, KAPPA, SADIE, HBCAB, SKIP SERUM #### [facility] , #### CYTOGENE, T4F, [id number], FISH NOT BLAD, MARÍA, TSH3, FLOW NEOGENOMIC, CMP, RETIC, SCAN CBC, FE and TIBC, LDH #### [facility] [address] Comprehensive Metabolic Pane melvin 03-09-2024 Albumin [Mass/Vol] 2.7 g/dL Low 3.5-5.7 [facility] Comment on above: Performed By: #### H BSAB, HCV RX PCR, CAMILA, CU, PLT AB S, SPE, RA, HBSAG, HIV SCREEN, KAPPA, SADIE, HBCAB, SKIP SERUM #### [facility] , #### CYTOGENE, T4F, [id number], FISH NOT BLAD, MARÍA, TSH3, FLOW NEOGENOMIC, CMP, RETIC, SCAN CBC, FE and TIBC, LDH #### [address] Creatinine Clr Calc Pharmacy 59.85 Normal [facility] Comment on above: Performed By: #### H BSAB, HCV RX PCR, CAMILA, CU, PLT AB S, SPE, RA, HBSAG, HIV SCREEN, KAPPA, SADIE, HBCAB, SKIP SERUM #### [facility] , #### CYTOGENE, T4F, [id number], FISH NOT BLAD, MARÍA, TSH3, FLOW NEOGENOMIC, CMP, RETIC, SCAN CBC, FE and TIBC, LDH #### [address] GFR/1.73 sq M.predicted MDRD (S/P/Bld) [Vol rate/Area] mL/min/{1.73_m2} Normal [facility] Comment on above: Performed By: #### H BSAB, HCV RX PCR, CAMILA, CU, PLT AB S, SPE, RA, HBSAG, HIV SCREEN, KAPPA, SADIE, HBCAB, SKIP SERUM #### [facility] , #### CYTOGENE, T4F, [id number], FISH NOT BLAD, MARÍA, TSH3, FLOW NEOGENOMIC, CMP, RETIC, SCAN CBC, FE and TIBC, LDH #### [address] Creatinine [Mass/volume] in Serum or PlasmaOrdered By: Vijay Aguilar on 03-09-2024 Creatinine [Mass/Vol] 1.05 mg/dL Normal 0.70-1.30 [facility] Comment on above: Performed By: #### H BSAB, HCV RX PCR, CAMILA, CU, PLT AB S, SPE, RA, HBSAG, HIV SCREEN, KAPPA, SADIE, HBCAB, SKIP SERUM #### [facility] , #### CYTOGENE, T4F, [id number], FISH NOT BLAD, MARÍA, TSH3, FLOW NEOGENOMIC, CMP, RETIC, SCAN CBC, FE and TIBC, LDH #### [facility] [address] Diff and CBCon 03-09-2024 Macrocytosis Slight Normal [facility] Comment on above: Performed By: #### H BSAB, HCV RX PCR, CAMILA, CU, PLT AB S, SPE, RA, HBSAG, HIV SCREEN, KAPPA, SADIE, HBCAB, SKIP SERUM #### [facility] , #### CYTOGENE, T4F, [id number], FISH NOT BLAD, MARÍA, TSH3, FLOW NEOGENOMIC, CMP, RETIC, SCAN CBC, FE and TIBC, LDH #### [facility] [address] Mean Corpuscular HGB Conc 35.4 g/dL Normal 32.5-35.6 [facility] Comment on above: Performed By: #### H BSAB, HCV RX PCR, CAMILA, CU, PLT AB S, SPE, RA, HBSAG, HIV SCREEN, KAPPA, SADIE, HBCAB, SKIP SERUM #### [facility] , #### CYTOGENE, T4F, [id number], FISH NOT BLAD, MARÍA, TSH3, FLOW NEOGENOMIC, CMP, RETIC, SCAN CBC, FE and TIBC, LDH #### [facility] [address] Other Cell Type 5 % High 0-0 [facility] Comment on above: Result Comment: PLAS MACYTOID LYMPHOCYTE Performed By: #### H BSAB, HCV RX PCR, CAMILA, CU, PLT AB S, SPE, RA, HBSAG, HIV SCREEN, KAPPA, SADIE, HBCAB, SKIP SERUM #### [facility] , #### CYTOGENE, T4F, [id number], FISH NOT BLAD, MARÍA, TSH3, FLOW NEOGENOMIC, CMP, RETIC, SCAN CBC, FE and TIBC, LDH #### [address] Platelet Estimate Decreased Normal Normal [facility] Comment on above: Performed By: #### H BSAB, HCV RX PCR, CAMILA, CU, PLT AB S, SPE, RA, HBSAG, HIV SCREEN, KAPPA, SADIE, HBCAB, SKIP SERUM #### [facility] , #### CYTOGENE, T4F, [id number], FISH NOT BLAD, MARÍA, TSH3, FLOW NEOGENOMIC, CMP, RETIC, SCAN CBC, FE and TIBC, LDH #### [address] Platelet Morphology Normal Normal Normal [facility] Comment on above: Result Comment: PERF ORMED BY: [place] [address] PATHOLOGIST CRYOGENICS REPAIRER OTTO HARLEY M.D. Performed By: #### H BSAB, HCV RX PCR, CAMILA, CU, PLT AB S, SPE, RA, HBSAG, HIV SCREEN, KAPPA, SADIE, HBCAB, SKIP SERUM #### [facility] , #### CYTOGENE, T4F, [id number], FISH NOT BLAD, MARÍA, TSH3, FLOW NEOGENOMIC, CMP, RETIC, SCAN CBC, FE and TIBC, LDH #### [address] Poikilocytosis Slight Normal [facility] Comment on above: Performed By: #### H BSAB, HCV RX PCR, CAMILA, CU, PLT AB S, SPE, RA, HBSAG, HIV SCREEN, KAPPA, SADIE, HBCAB, SKIP SERUM #### [facility] , #### CYTOGENE, T4F, [id number], FISH NOT BLAD, MARÍA, TSH3, FLOW NEOGENOMIC, CMP, RETIC, SCAN CBC, FE and TIBC, LDH #### [facility] [address] Rouleaux Moderate Normal [facility] Comment on above: Performed By: #### H BSAB, HCV RX PCR, CAMILA, CU, PLT AB S, SPE, RA, HBSAG, HIV SCREEN, KAPPA, SADIE, HBCAB, SKIP SERUM #### [facility] , #### CYTOGENE, T4F, [id number], FISH NOT BLAD, MARÍA, TSH3, FLOW NEOGENOMIC, CMP, RETIC, SCAN CBC, FE and TIBC, LDH #### [address] Eosinophils Auto (Bld) [#/Vo l]Ordered By: Roslyn Townsend on 03-09-2024 Eosinophils (Bld) [#/Vol] N/A [facility] Eosinophils/100 WBC Auto (Bl d)Ordered By: Roslyn Townsend on 03-09-2024 Eosinophils/100 WBC (Bld) N/A [facility] Eosinophils/100 leukocytes i n Blood by Manual countOrdered By: Roslyn Townsend on 03-09-2024 Eosinophils/100 WBC (Bld) 3 % Normal 1-3 [facility] Comment on above: Performed By: #### H BSAB, HCV RX PCR, CAMILA, CU, PLT AB S, SPE, RA, HBSAG, HIV SCREEN, KAPPA, SADIE, HBCAB, SKIP SERUM #### [facility] , #### CYTOGENE, T4F, [id number], FISH NOT BLAD, MARÍA, TSH3, FLOW NEOGENOMIC, CMP, RETIC, SCAN CBC, FE and TIBC, LDH #### [address] Erythrocyte distribution wid th [Ratio] by Automated countOrdered By: Roslyn Townsend on 03-09-2024 Erythrocyte distribution width (RBC) [Ratio] 20.7 % High 12.0-14.8 [facility] Comment on above: Performed By: #### H BSAB, HCV RX PCR, CAMILA, CU, PLT AB S, SPE, RA, HBSAG, HIV SCREEN, KAPPA, SADIE, HBCAB, SKIP SERUM #### [facility] , #### CYTOGENE, T4F, [id number], FISH NOT BLAD, MARÍA, TSH3, FLOW NEOGENOMIC, CMP, RETIC, SCAN CBC, FE and TIBC, LDH #### [facility] [address] [place] [id number] [facility] Erythrocytes [#/volume] in B lood by Automated countOrdered By: Roslyn Townsend on 03-09-2024 RBC (Bld) [#/Vol] 2.68 10*6/uL Low 3.90-5.60 [facility] Comment on above: Performed By: #### H BSAB, HCV RX PCR, CAMILA, CU, PLT AB S, SPE, RA, HBSAG, HIV SCREEN, KAPPA, SADIE, HBCAB, SKIP SERUM #### [facility] , #### CYTOGENE, T4F, [id number], FISH NOT BLAD, MARÍA, TSH3, FLOW NEOGENOMIC, CMP, RETIC, SCAN CBC, FE and TIBC, LDH #### [facility] [address] Glucose [Mass/volume] in Ser um or PlasmaOrdered By: Vijay Aguilar on 03-09-2024 Glucose [Mass/Vol] 97 mg/dL Normal 70-100 [facility] Comment on above: ADA recommended refe rence rangeRandom Glucose Reference Range is dependent on time and content of last meal. Glucose of more than 200 mg/dL in a nonstressed, ambulatory subject supports the diagnosis of Diabetes Mellitus. Result Comment: [place] om Glucose Reference Range is dependent on time and content of last meal. Glucose of more than 200 mg/dL in a nonstressed, ambulatory subject supports the diagnosis of Diabetes Mellitus. ADA recommended reference range Performed By: #### H BSAB, HCV RX PCR, CAMILA, CU, PLT AB S, SPE, RA, HBSAG, HIV SCREEN, KAPPA, SADIE, HBCAB, SKIP SERUM #### [facility] , #### CYTOGENE, T4F, [id number], FISH NOT BLAD, MARÍA, TSH3, FLOW NEOGENOMIC, CMP, RETIC, SCAN CBC, FE and TIBC, LDH #### [address] Hematocrit [Volume Fraction] of Blood by Automated countOrdered By: Roslyn Townsend on 03-09-2024 Hematocrit (Bld) [Volume fraction] 26.1 % Low 38.8-50.0 [facility] Comment on above: Performed By: #### H BSAB, HCV RX PCR, CAMILA, CU, PLT AB S, SPE, RA, HBSAG, HIV SCREEN, KAPPA, SADIE, HBCAB, SKIP SERUM #### [facility] , #### CYTOGENE, T4F, [id number], FISH NOT BLAD, MARÍA, TSH3, FLOW NEOGENOMIC, CMP, RETIC, SCAN CBC, FE and TIBC, LDH #### [address] Hemoglobin [Mass/volume] in BloodOrdered By: Roslyn Townsend on 03-09-2024 Hemoglobin (Bld) [Mass/Vol] 9.2 g/dL Low 13.0-17.0 [facility] Comment on above: Performed By: #### H BSAB, HCV RX PCR, CAMILA, CU, PLT AB S, SPE, RA, HBSAG, HIV SCREEN, KAPPA, SADIE, HBCAB, SKIP SERUM #### [facility] , #### CYTOGENE, T4F, [id number], FISH NOT BLAD, MARÍA, TSH3, FLOW NEOGENOMIC, CMP, RETIC, SCAN CBC, FE and TIBC, LDH #### [address] Melvin 03-09-2024 L Specimen: [id number] Re ceived: 03/09/24-4 Status: SOUT Req Num: [id number] Spec Type: Impression Subm Dr: Vijay Aguilar MD Tissues: PATHPER Procedures: PATHREVIEW Age/ Patient Sex Location Account Attending Physician JeriNeil rmairez 78/M [id number] Vijay Aguilar MD SPEC NUM: [id number] RECD: 03/09/24 STATUS: URVASHI GOMEZ NUM: [id number] MOE: 03/09/24- SUBM DR: Vijay Aguilar MD ENTERED: 03/09/24-[address] [facility] [address]: SPEC TYPE: Impression DEPT: AR ORDERED: PATHREVIEW ORDERED: PATHREVIEW Pathologist Review Abnormal [...] partly the cause of progressing pancytopenia CPT: 07752 CBC Date Time Test Result Flag (u) Normal Range 03/06/24 0753 Band 1 0-5 % 03/08/24 0551 Neut % (Auto) 57.3 . % Lymp % (Auto) 38.4 . % Rabun % (Auto) 1.0 . % Eos % (Auto) 0.1 . % Baso % (Auto) 3.2 . % NRBC% 0.3 0-0.5 /100 WBC Specimen: [id number] Received: 03/09/24 Status: URVASHI Gomez Num: [id number] Spec Type: Impression Subm Dr: Vijay Aguilar MD Tissues: PATHPER Procedures: PATHREVIEW Patient: Neil Wilcox [id number] (Continued) Specimen: [id number] Received: 03/09/24 (Continued) [place] (Continued) Signed (signature on file) Chaitanya Paulino MD 03/11/24 1130 Specimen: [id number] Received: 03/09/24 Status: URVASHI Gomez Num: [id number] Spec Type: Impression Subm Dr: Vijay Aguilar MD Tissues: PATHPER Procedures: PATHREVIEW Patient: Neil Wilcox [id number] (Continued) Specimen: [id number] Received: 03/09/24-1014 (Continued) CBC (Continued) Neut # (Auto) 1.1 L 1.8-7.7 x10E3/uL Lymph # (Auto) 0.7 L 1.00-4.8 x10E3/uL Rabun # (Auto) 0.0 0.0-0.8 x10E3/uL Eos # [...] 50-70 % Lymph 57 H 18-42 % Rabun 0 L 2-11 % Eos 3 1-3 % Baso 0 0-2 % Other Cell Type 5 H 0-0 % PLASMACYTOID LYMPHOCYTE Poik Slight Aniso Slight Macro Slight Rouleaux Moderate Plt Est Decreased Normal Plt Morphology Normal Normal Specimen: [id number] Received: 03/09/24-1014 Status: URVASHI Gomez Num: [id number] Spec Type: Impression Subm Dr: Vijay Aguilar MD Tissues: PATHPER Procedures: PATHREVIEW Patient: Neil Wilcox [id number] (Continued) Signed (signature on file) Chaitanya Paulino MD 03/11/24 1130 Normal [facility] Leukocytes [#/volume] correc myrtle for nucleated erythrocytes in Blood by Automated counOrdered By: Roslyn Townsend on 03-09-2024 WBC corrected for nucl RBC Auto (Bld) [#/Vol] 2.8 10*3/uL Low 4.1-10.5 [facility] Leukocytes [#/volume] in Blo od by Automated countOrdered By: Roslyn Townsend on 03-09-2024 WBC (Bld) [#/Vol] 2.8 10*3/uL Low 4.1-10.5 [facility] Comment on above: Performed By: #### H BSAB, HCV RX PCR, CAMILA, CU, PLT AB S, SPE, RA, HBSAG, HIV SCREEN, KAPPA, SADIE, HBCAB, SKIP SERUM #### [facility] , #### CYTOGENE, T4F, [id number], FISH NOT BLAD, MARÍA, TSH3, FLOW NEOGENOMIC, CMP, RETIC, SCAN CBC, FE and TIBC, LDH #### [facility] [address] [place] [address] [place] Lymphocytes Auto (Bld) [#/Vo l]Ordered By: Roslyn Townsend on 03-09-2024 Lymphocytes (Bld) [#/Vol] N/A [facility] Lymphocytes/100 WBC Auto (Bl d)Ordered By: Roslyn Townsend on 03-09-2024 Lymphocytes/100 WBC (Bld) N/A [facility] Lymphocytes/100 leukocytes i n Blood by Manual countOrdered By: Roslyn Townsend on 03-09-2024 Lymphocytes/100 WBC (Bld) 57 % High 18-42 [facility] Comment on above: Performed By: #### H BSAB, HCV RX PCR, CAMILA, CU, PLT AB S, SPE, RA, HBSAG, HIV SCREEN, KAPPA, SADIE, HBCAB, SKIP SERUM #### [facility] , #### CYTOGENE, T4F, [id number], FISH NOT BLAD, MARÍA, TSH3, FLOW NEOGENOMIC, CMP, RETIC, SCAN CBC, FE and TIBC, LDH #### [facility] [address] [place] [address] [place] MCH [Entitic mass] by Automa myrtle countOrdered By: Roslyn Townsend on 03-09-2024 MCH (RBC) [Entitic mass] 34.4 pg Normal 27.5-35.2 [facility] Comment on above: Performed By: #### H BSAB, HCV RX PCR, CAMILA, CU, PLT AB S, SPE, RA, HBSAG, HIV SCREEN, KAPPA, SADIE, HBCAB, SKIP SERUM #### [facility] , #### CYTOGENE, T4F, [id number], FISH NOT BLAD, MARÍA, TSH3, FLOW NEOGENOMIC, CMP, RETIC, SCAN CBC, FE and TIBC, LDH #### [facility] [address] MCHC Auto (RBC) [Mass/Vol]Or dered By: Roslyn Townsend on 03-09-2024 MCHC (RBC) [Mass/Vol] 35.4 g/dL 32.5-35.6 [facility] MCV [Entitic volume] by Auto mated countOrdered By: Roslyn Townsend on 03-09-2024 MCV (RBC) [Entitic vol] 97.2 fL Normal 83.5-101 [facility] Comment on above: Performed By: #### H BSAB, HCV RX PCR, CAMILA, CU, PLT AB S, SPE, RA, HBSAG, HIV SCREEN, KAPPA, SADIE, HBCAB, SKIP SERUM #### [facility] , #### CYTOGENE, T4F, [id number], FISH NOT BLAD, MARÍA, TSH3, FLOW NEOGENOMIC, CMP, RETIC, SCAN CBC, FE and TIBC, LDH #### [facility] [address] Macrocytes LM Ql (Bld)Ordere d By: Roslyn Townsend on 03-09-2024 Macrocytes Ql (Bld) [facility] Magnesium [Mass/volume] in S dustin or PlasmaOrdered By: Vijay Aguilar on 03-09-2024 Magnesium [Mass/Vol] 1.7 mg/dL Low 1.9-2.7 [facility] Comment on above: Result Comment: PERF ORMED BY: [place] [address] PATHOLOGIST [employer]OG[employer] REPA[employer]ER OTTO HARLEY M.D. Performed By: #### H BSAB, HCV RX PCR, CAMILA, CU, PLT AB S, SPE, RA, HBSAG, HIV SCREEN, KAPPA, SADIE, HBCAB, SKIP SERUM #### [facility] , #### CYTOGENE, T4F, [id number], FISH NOT BLAD, MARÍA, TSH3, FLOW NEOGENOMIC, CMP, RETIC, SCAN CBC, FE and TIBC, LDH #### [address] Manual blood segmented neutr ophils/100 leukocytesOrdered By: Roslyn Townsend on 03-09-2024 Segmented neutrophils/100 WBC (Bld) 35 % Low 50-70 [facility] Comment on above: Performed By: #### H BSAB, HCV RX PCR, CAMILA, CU, PLT AB S, SPE, RA, HBSAG, HIV SCREEN, KAPPA, SADIE, HBCAB, SKIP SERUM #### [facility] , #### CYTOGENE, T4F, [id number], FISH NOT BLAD, MARÍA, TSH3, FLOW NEOGENOMIC, CMP, RETIC, SCAN CBC, FE and TIBC, LDH #### [address] Monocytes Auto (Bld) [#/Vol] Ordered By: Roslyn Townsend on 03-09-2024 Monocytes (Bld) [#/Vol] N/A [facility] Monocytes/100 WBC Auto (Bld) Ordered By: Roslyn Townsend on 03-09-2024 Monocytes/100 WBC (Bld) N/A [facility] Monocytes/100 leukocytes in Blood by Manual countOrdered By: Roslyn Townsend on 03-09-2024 Monocytes/100 WBC (Bld) 0 % Low 2-11 [facility] Comment on above: Performed By: #### H BSAB, HCV RX PCR, CAMILA, CU, PLT AB S, SPE, RA, HBSAG, HIV SCREEN, KAPPA, SADIE, HBCAB, SKIP SERUM #### [facility] , #### CYTOGENE, T4F, [id number], FISH NOT BLAD, MARÍA, TSH3, FLOW NEOGENOMIC, CMP, RETIC, SCAN CBC, FE and TIBC, LDH #### [place] [id number] [place] Neutrophils Auto (Bld) [#/Vo l]Ordered By: Roslyn Townsend on 03-09-2024 Neutrophils (Bld) [#/Vol] N/A [facility] Neutrophils/100 WBC Auto (Bl d)Ordered By: Roslyn Townsend on 03-09-2024 Neutrophils/100 WBC (Bld) N/A [facility] No Panel InformationOrdered By: Vijay Aguilar on 03-09-2024 Estimated GFR (CKD-EPI) > 60.0 mL/Min [facility] Creatinine Clearance (Chem 59.85 [facility] Nucleated erythrocytes [Pres ence] in Blood by Automated countOrdered By: Roslyn Townsend on 03-09-2024 Nucleated RBC Auto Ql (Bld) N/A [facility] Platelet adequacy [Presence] in Blood by Light microscopyOrdered By: Roslyn Townsend on 03-09-2024 Platelets LM Ql (Bld) Decreased Normal [facility] Platelet mean volume [Entiti c volume] in Blood by Automated countOrdered By: Roslyn Townsend on 03-09-2024 Platelet mean volume (Bld) [Entitic vol] 7.4 fL Normal 6.6-10.1 [facility] Comment on above: Performed By: #### H BSAB, HCV RX PCR, CAMILA, CU, PLT AB S, SPE, RA, HBSAG, HIV SCREEN, KAPPA, SADIE, HBCAB, SKIP SERUM #### [facility] , #### CYTOGENE, T4F, [id number], FISH NOT BLAD, MARÍA, TSH3, FLOW NEOGENOMIC, CMP, RETIC, SCAN CBC, FE and TIBC, LDH #### [facility] [address] Platelet morphology finding [Identifier] in BloodOrdered By: Roslyn Townsend on 03-09-2024 Platelet morphology finding Nom (Bld) Normal Normal [facility] Platelets [#/volume] in Bloo d by Automated countOrdered By: Roslyn Townsend on 03-09-2024 Platelets (Bld) [#/Vol] 62 10*3/uL Low 150-450 [facility] Comment on above: Performed By: #### H BSAB, HCV RX PCR, CAMILA, CU, PLT AB S, SPE, RA, HBSAG, HIV SCREEN, KAPPA, SADIE, HBCAB, SKIP SERUM #### [facility] , #### CYTOGENE, T4F, [id number], FISH NOT BLAD, MARÍA, TSH3, FLOW NEOGENOMIC, CMP, RETIC, SCAN CBC, FE and TIBC, LDH #### [facility] [address] Poikilocytosis [Presence] in Blood by Light microscopyOrdered By: Roslyn Townsend on 03-09-2024 Poikilocytosis LM Ql (Bld) Slight [facility] Potassium [Moles/volume] in Serum or PlasmaOrdered By: Vijay Aguilar on 03-09-2024 Potassium [Moles/Vol] 3.3 mmol/L Low 3.5-5.1 [facility] Comment on above: Performed By: #### H BSAB, HCV RX PCR, CAMILA, CU, PLT AB S, SPE, RA, HBSAG, HIV SCREEN, KAPPA, SADIE, HBCAB, SKIP SERUM #### [facility] , #### CYTOGENE, T4F, [id number], FISH NOT BLAD, MARÍA, TSH3, FLOW NEOGENOMIC, CMP, RETIC, SCAN CBC, FE and TIBC, LDH #### [facility] [address] Protein [Mass/volume] in Ser um or PlasmaOrdered By: Vijay Aguilar on 03-09-2024 Protein [Mass/Vol] 7.8 g/dL Normal 6.4-8.9 [facility] Comment on above: Performed By: #### H BSAB, HCV RX PCR, CAMILA, CU, PLT AB S, SPE, RA, HBSAG, HIV SCREEN, KAPPA, SADIE, HBCAB, SKIP SERUM #### [facility] , #### CYTOGENE, T4F, [id number], FISH NOT BLAD, MARÍA, TSH3, FLOW NEOGENOMIC, CMP, RETIC, SCAN CBC, FE and TIBC, LDH #### [facility] [address] RBC morphologyOrdered By: Kathleen Townsend on 03-09-2024 RBC morphology finding Nom (Bld) N/A [facility] Rouleaux detectionOrdered By : Roslyn Townsend on 03-09-2024 Rouleaux LM Ql (Bld) Moderate [facility] Serum globulin measurement b y calculation (mass/volume)Ordered By: Vijay Aguilar on 03-09-2024 Globulin (S) [Mass/Vol] 5.1 g/dL [facility] Comment on above: Performed By: #### H BSAB, HCV RX PCR, CAMILA, CU, PLT AB S, SPE, RA, HBSAG, HIV SCREEN, KAPPA, SADIE, HBCAB, SKIP SERUM #### [facility] , #### CYTOGENE, T4F, [id number], FISH NOT BLAD, MARÍA, TSH3, FLOW NEOGENOMIC, CMP, RETIC, SCAN CBC, FE and TIBC, LDH #### [facility] [address] Serum or plasma albumin/glob ulin mass ratioOrdered By: Vijay Aguilar on 03-09-2024 Albumin/Globulin [Mass ratio] 0.5 {ratio} [facility] Comment on above: Performed By: #### H BSAB, HCV RX PCR, CAMILA, CU, PLT AB S, SPE, RA, HBSAG, HIV SCREEN, KAPPA, SADIE, HBCAB, SKIP SERUM #### [facility] , #### CYTOGENE, T4F, [id number], FISH NOT BLAD, MARÍA, TSH3, FLOW NEOGENOMIC, CMP, RETIC, SCAN CBC, FE and TIBC, LDH #### [facility] [address] Serum or plasma anion gap de terminationOrdered By: Vijay Aguilar on 03-09-2024 Anion gap [Moles/Vol] 13.2 mmol/L Normal 6.0-15.0 [facility] Comment on above: Performed By: #### H BSAB, HCV RX PCR, CAMILA, CU, PLT AB S, SPE, RA, HBSAG, HIV SCREEN, KAPPA, SADIE, HBCAB, SKIP SERUM #### [facility] , #### CYTOGENE, T4F, [id number], FISH NOT BLAD, MARÍA, TSH3, FLOW NEOGENOMIC, CMP, RETIC, SCAN CBC, FE and TIBC, LDH #### [facility] [address] Sodium [Moles/volume] in Ser um or PlasmaOrdered By: Vijay Aguilar on 03-09-2024 Sodium [Moles/Vol] 136 mmol/L Normal 136-145 [facility] Comment on above: Performed By: #### H BSAB, HCV RX PCR, CAMILA, CU, PLT AB S, SPE, RA, HBSAG, HIV SCREEN, KAPPA, SADIE, HBCAB, SKIP SERUM #### [facility] , #### CYTOGENE, T4F, [id number], FISH NOT BLAD, MARÍA, TSH3, FLOW NEOGENOMIC, CMP, RETIC, SCAN CBC, FE and TIBC, LDH #### [facility] [address] Urea nitrogen [Mass/volume] in Serum or PlasmaOrdered By: Vijay Aguilar on 03-09-2024 Urea nitrogen [Mass/Vol] 18 mg/dL Normal 7-25 [facility] Comment on above: Performed By: #### H BSAB, HCV RX PCR, CAMILA, CU, PLT AB S, SPE, RA, HBSAG, HIV SCREEN, KAPPA, SADIE, HBCAB, SKIP SERUM #### [facility] , #### CYTOGENE, T4F, [id number], FISH NOT BLAD, MARÍA, TSH3, FLOW NEOGENOMIC, CMP, RETIC, SCAN CBC, FE and TIBC, LDH #### [facility] [address] [place] [address] [place] WBC other/100 WBC Manual cnt (Bld)Ordered By: Roslyn Townsend on 03-09-2024 WBC other/100 WBC (Bld) 5 % High 0-0 [facility] Comment on above: PLASMACYTOID LYMPHOC YTE Basic Metabolic Panelon 02-22 Anion gap [Moles/Vol] 13.2 mmol/L Normal 6.0-15.0 [facility] Comment on above: Performed By: #### H BSAB, HCV RX PCR, CAMILA, CU, PLT AB S, SPE, RA, HBSAG, HIV SCREEN, KAPPA, SADIE, HBCAB, SKIP SERUM #### [facility] , #### CYTOGENE, T4F, [id number], FISH NOT BLAD, MARÍA, TSH3, FLOW NEOGENOMIC, CMP, RETIC, SCAN CBC, FE and TIBC, LDH #### [facility] [address] Calcium [Mass/Vol] 7.9 mg/dL Low 8.6-10.3 [facility] Comment on above: Performed By: #### H BSAB, HCV RX PCR, CAMILA, CU, PLT AB S, SPE, RA, HBSAG, HIV SCREEN, KAPPA, SADIE, HBCAB, SKIP SERUM #### [facility] , #### CYTOGENE, T4F, [id number], FISH NOT BLAD, MARÍA, TSH3, FLOW NEOGENOMIC, CMP, RETIC, SCAN CBC, FE and TIBC, LDH #### [facility] [address] Chloride [Moles/Vol] 106 mmol/L Normal 98-107 [facility] Comment on above: Performed By: #### H BSAB, HCV RX PCR, CAMILA, CU, PLT AB S, SPE, RA, HBSAG, HIV SCREEN, KAPPA, SADIE, HBCAB, SKIP SERUM #### [facility] , #### CYTOGENE, T4F, [id number], FISH NOT BLAD, MARÍA, TSH3, FLOW NEOGENOMIC, CMP, RETIC, SCAN CBC, FE and TIBC, LDH #### [facility] [address] [place] [address] [place] CO2 [Moles/Vol] 18.6 mmol/L Low 21.0-31.0 [facility] Comment on above: Performed By: #### H BSAB, HCV RX PCR, CAMILA, CU, PLT AB S, SPE, RA, HBSAG, HIV SCREEN, KAPPA, SADIE, HBCAB, SKIP SERUM #### [facility] , #### CYTOGENE, T4F, [id number], FISH NOT BLAD, MARÍA, TSH3, FLOW NEOGENOMIC, CMP, RETIC, SCAN CBC, FE and TIBC, LDH #### [address] Creatinine [Mass/Vol] 1.01 mg/dL Normal 0.70-1.30 [facility] Comment on above: Performed By: #### H BSAB, HCV RX PCR, CAMILA, CU, PLT AB S, SPE, RA, HBSAG, HIV SCREEN, KAPPA, SADIE, HBCAB, SKIP SERUM #### [facility] , #### CYTOGENE, T4F, [id number], FISH NOT BLAD, MARÍA, TSH3, FLOW NEOGENOMIC, CMP, RETIC, SCAN CBC, FE and TIBC, LDH #### [place] [address] [place] Creatinine Clr Calc Pharmacy 62.22 Normal [facility] Comment on above: Result Comment: PERF ORMED BY: [place] [address] PATHOLOGIST CRYOGENICS REPAIRER OTTO HARLEY M.D. Performed By: #### H BSAB, HCV RX PCR, CAMILA, CU, PLT AB S, SPE, RA, HBSAG, HIV SCREEN, KAPPA, SADIE, HBCAB, SKIP SERUM #### [facility] , #### CYTOGENE, T4F, [id number], FISH NOT BLAD, MARÍA, TSH3, FLOW NEOGENOMIC, CMP, RETIC, SCAN CBC, FE and TIBC, LDH #### [place] [address] [place] GFR/1.73 sq M.predicted MDRD (S/P/Bld) [Vol rate/Area] mL/min/{1.73_m2} Normal [facility] Comment on above: Performed By: #### H BSAB, HCV RX PCR, CAMILA, CU, PLT AB S, SPE, RA, HBSAG, HIV SCREEN, KAPPA, SADIE, HBCAB, SKIP SERUM #### [facility] , #### CYTOGENE, T4F, [id number], FISH NOT BLAD, MARÍA, TSH3, FLOW NEOGENOMIC, CMP, RETIC, SCAN CBC, FE and TIBC, LDH #### [facility] [address] Glucose [Mass/Vol] 136 mg/dL High 70-100 [facility] Comment on above: Result Comment: [facility][note 3] Glucose Reference Range is dependent on time and content of last meal. Glucose of more than 200 mg/dL in a nonstressed, ambulatory subject supports the diagnosis of Diabetes Mellitus. ADA recommended reference range Performed By: #### H BSAB, HCV RX PCR, CAMILA, CU, PLT AB S, SPE, RA, HBSAG, HIV SCREEN, KAPPA, SADIE, HBCAB, SKIP SERUM #### [facility] , #### CYTOGENE, T4F, [id number], FISH NOT BLAD, MARÍA, TSH3, FLOW NEOGENOMIC, CMP, RETIC, SCAN CBC, FE and TIBC, LDH #### [address] Potassium [Moles/Vol] 3.8 mmol/L Normal 3.5-5.1 [facility] Comment on above: Performed By: #### H BSAB, HCV RX PCR, CAMILA, CU, PLT AB S, SPE, RA, HBSAG, HIV SCREEN, KAPPA, SADIE, HBCAB, SKIP SERUM #### [facility] , #### CYTOGENE, T4F, [id number], FISH NOT BLAD, MARÍA, TSH3, FLOW NEOGENOMIC, CMP, RETIC, SCAN CBC, FE and TIBC, LDH #### [address] Sodium [Moles/Vol] 134 mmol/L Low 136-145 [facility] Comment on above: Performed By: #### H BSAB, HCV RX PCR, CAMILA, CU, PLT AB S, SPE, RA, HBSAG, HIV SCREEN, KAPPA, SADIE, HBCAB, SKIP SERUM #### [facility] , #### CYTOGENE, T4F, [id number], FISH NOT BLAD, MARÍA, TSH3, FLOW NEOGENOMIC, CMP, RETIC, SCAN CBC, FE and TIBC, LDH #### [address] Urea nitrogen [Mass/Vol] 21 mg/dL Normal 7-25 [facility] Comment on above: Performed By: #### H BSAB, HCV RX PCR, CAMILA, CU, PLT AB S, SPE, RA, HBSAG, HIV SCREEN, KAPPA, SADIE, HBCAB, SKIP SERUM #### [facility] , #### CYTOGENE, T4F, [id number], FISH NOT BLAD, MARÍA, TSH3, FLOW NEOGENOMIC, CMP, RETIC, SCAN CBC, FE and TIBC, LDH #### [address] Complete Blood Count Auto Di ffon 03-08-2024 Basophils (Bld) [#/Vol] 0.1 10*3/uL Normal 0.0-0.2 [facility] Comment on above: Result Comment: PERF ORMED BY: [place] [address] PATHOLOGIST CRYOGENICS REPAIRER OTTO HARLEY M.D. Performed By: #### H BSAB, HCV RX PCR, CAMILA, CU, PLT AB S, SPE, RA, HBSAG, HIV SCREEN, KAPPA, SADIE, HBCAB, SKIP SERUM #### [facility] , #### CYTOGENE, T4F, [id number], FISH NOT BLAD, MARÍA, TSH3, FLOW NEOGENOMIC, CMP, RETIC, SCAN CBC, FE and TIBC, LDH #### [address] Basophils/100 WBC (Bld) 3.2 % Normal . [facility] Comment on above: Performed By: #### H BSAB, HCV RX PCR, CAMILA, CU, PLT AB S, SPE, RA, HBSAG, HIV SCREEN, KAPPA, SADIE, HBCAB, SKIP SERUM #### [facility] , #### CYTOGENE, T4F, [id number], FISH NOT BLAD, MARÍA, TSH3, FLOW NEOGENOMIC, CMP, RETIC, SCAN CBC, FE and TIBC, LDH #### [facility] [address] Eosinophils (Bld) [#/Vol] 0.0 10*3/uL Normal 0.0-0.45 [facility] Comment on above: Performed By: #### H BSAB, HCV RX PCR, CAMILA, CU, PLT AB S, SPE, RA, HBSAG, HIV SCREEN, KAPPA, SADIE, HBCAB, SKIP SERUM #### [facility] , #### CYTOGENE, T4F, [id number], FISH NOT BLAD, MARÍA, TSH3, FLOW NEOGENOMIC, CMP, RETIC, SCAN CBC, FE and TIBC, LDH #### [address] Eosinophils/100 WBC (Bld) 0.1 % Normal . [facility] Comment on above: Performed By: #### H BSAB, HCV RX PCR, CAMILA, CU, PLT AB S, SPE, RA, HBSAG, HIV SCREEN, KAPPA, SADIE, HBCAB, SKIP SERUM #### [facility] , #### CYTOGENE, T4F, [id number], FISH NOT BLAD, MARÍA, TSH3, FLOW NEOGENOMIC, CMP, RETIC, SCAN CBC, FE and TIBC, LDH #### [address] Erythrocyte distribution width (RBC) [Ratio] 20.9 % High 12.0-14.8 [facility] Comment on above: Performed By: #### H BSAB, HCV RX PCR, CAMILA, CU, PLT AB S, SPE, RA, HBSAG, HIV SCREEN, KAPPA, SADIE, HBCAB, SKIP SERUM #### [facility] , #### CYTOGENE, T4F, [id number], FISH NOT BLAD, MARÍA, TSH3, FLOW NEOGENOMIC, CMP, RETIC, SCAN CBC, FE and TIBC, LDH #### [address] Hematocrit (Bld) [Volume fraction] 27.2 % Low 38.8-50.0 [facility] Comment on above: Performed By: #### H BSAB, HCV RX PCR, CAMILA, CU, PLT AB S, SPE, RA, HBSAG, HIV SCREEN, KAPPA, SADIE, HBCAB, SKIP SERUM #### [facility] , #### CYTOGENE, T4F, [id number], FISH NOT BLAD, MARÍA, TSH3, FLOW NEOGENOMIC, CMP, RETIC, SCAN CBC, FE and TIBC, LDH #### [address] Hemoglobin (Bld) [Mass/Vol] 9.5 g/dL Low 13.0-17.0 [facility] Comment on above: Performed By: #### H BSAB, HCV RX PCR, CAMILA, CU, PLT AB S, SPE, RA, HBSAG, HIV SCREEN, KAPPA, SADIE, HBCAB, SKIP SERUM #### [facility] , #### CYTOGENE, T4F, [id number], FISH NOT BLAD, MARÍA, TSH3, FLOW NEOGENOMIC, CMP, RETIC, SCAN CBC, FE and TIBC, LDH #### [address] Lymphocytes (Bld) [#/Vol] 0.7 10*3/uL Low 1.00-4.8 [facility] Comment on above: Performed By: #### H BSAB, HCV RX PCR, CAMILA, CU, PLT AB S, SPE, RA, HBSAG, HIV SCREEN, KAPPA, SADIE, HBCAB, SKIP SERUM #### [facility] , #### CYTOGENE, T4F, [id number], FISH NOT BLAD, MARÍA, TSH3, FLOW NEOGENOMIC, CMP, RETIC, SCAN CBC, FE and TIBC, LDH #### [address] Lymphocytes/100 WBC (Bld) 38.4 % Normal . [facility] Comment on above: Performed By: #### H BSAB, HCV RX PCR, CAMILA, CU, PLT AB S, SPE, RA, HBSAG, HIV SCREEN, KAPPA, SADIE, HBCAB, SKIP SERUM #### [facility] , #### CYTOGENE, T4F, [id number], FISH NOT BLAD, MARÍA, TSH3, FLOW NEOGENOMIC, CMP, RETIC, SCAN CBC, FE and TIBC, LDH #### [address] MCH (RBC) [Entitic mass] 33.9 pg Normal 27.5-35.2 [facility] Comment on above: Performed By: #### H BSAB, HCV RX PCR, CAMILA, CU, PLT AB S, SPE, RA, HBSAG, HIV SCREEN, KAPPA, SADIE, HBCAB, SKIP SERUM #### [facility] , #### CYTOGENE, T4F, [id number], FISH NOT BLAD, MARÍA, TSH3, FLOW NEOGENOMIC, CMP, RETIC, SCAN CBC, FE and TIBC, LDH #### [address] MCV (RBC) [Entitic vol] 97.4 fL Normal 83.5-101 [facility] Comment on above: Performed By: #### H BSAB, HCV RX PCR, CAMILA, CU, PLT AB S, SPE, RA, HBSAG, HIV SCREEN, KAPPA, SADIE, HBCAB, SKIP SERUM #### [facility] , #### CYTOGENE, T4F, [id number], FISH NOT BLAD, MARÍA, TSH3, FLOW NEOGENOMIC, CMP, RETIC, SCAN CBC, FE and TIBC, LDH #### [address] Mean Corpuscular HGB Conc 34.8 g/dL Normal 32.5-35.6 [facility] Comment on above: Performed By: #### H BSAB, HCV RX PCR, CAMILA, CU, PLT AB S, SPE, RA, HBSAG, HIV SCREEN, KAPPA, SADIE, HBCAB, SKIP SERUM #### [facility] , #### CYTOGENE, T4F, [id number], FISH NOT BLAD, MARÍA, TSH3, FLOW NEOGENOMIC, CMP, RETIC, SCAN CBC, FE and TIBC, LDH #### [facility] [address] Monocytes (Bld) [#/Vol] 0.0 10*3/uL Normal 0.0-0.8 [facility] Comment on above: Performed By: #### H BSAB, HCV RX PCR, CAMILA, CU, PLT AB S, SPE, RA, HBSAG, HIV SCREEN, KAPPA, SADIE, HBCAB, SKIP SERUM #### [facility] , #### CYTOGENE, T4F, [id number], FISH NOT BLAD, MARÍA, TSH3, FLOW NEOGENOMIC, CMP, RETIC, SCAN CBC, FE and TIBC, LDH #### [address] Monocytes/100 WBC (Bld) 1.0 % Normal . [facility] Comment on above: Performed By: #### H BSAB, HCV RX PCR, CAMILA, CU, PLT AB S, SPE, RA, HBSAG, HIV SCREEN, KAPPA, SADIE, HBCAB, SKIP SERUM #### [facility] , #### CYTOGENE, T4F, [id number], FISH NOT BLAD, MARÍA, TSH3, FLOW NEOGENOMIC, CMP, RETIC, SCAN CBC, FE and TIBC, LDH #### [place] [address] [place] Neutrophils (Bld) [#/Vol] 1.1 10*3/uL Low 1.8-7.7 [facility] Comment on above: Performed By: #### H BSAB, HCV RX PCR, CAMILA, CU, PLT AB S, SPE, RA, HBSAG, HIV SCREEN, KAPPA, SADIE, HBCAB, SKIP SERUM #### [facility] , #### CYTOGENE, T4F, [id number], FISH NOT BLAD, MARÍA, TSH3, FLOW NEOGENOMIC, CMP, RETIC, SCAN CBC, FE and TIBC, LDH #### [address] Neutrophils/100 WBC (Bld) 57.3 % Normal . [facility] Comment on above: Performed By: #### H BSAB, HCV RX PCR, CAMILA, CU, PLT AB S, SPE, RA, HBSAG, HIV SCREEN, KAPPA, SADIE, HBCAB, SKIP SERUM #### [facility] , #### CYTOGENE, T4F, [id number], FISH NOT BLAD, MARÍA, TSH3, FLOW NEOGENOMIC, CMP, RETIC, SCAN CBC, FE and TIBC, LDH #### [address] NRBC% 0.3 /100{WBC} Normal 0-0.5 [facility] Comment on above: Performed By: #### H BSAB, HCV RX PCR, CAMILA, CU, PLT AB S, SPE, RA, HBSAG, HIV SCREEN, KAPPA, SADIE, HBCAB, SKIP SERUM #### [facility] , #### CYTOGENE, T4F, [id number], FISH NOT BLAD, MARÍA, TSH3, FLOW NEOGENOMIC, CMP, RETIC, SCAN CBC, FE and TIBC, LDH #### [address] Platelet mean volume (Bld) [Entitic vol] 7.3 fL Normal 6.6-10.1 [facility] Comment on above: Performed By: #### H BSAB, HCV RX PCR, CAMILA, CU, PLT AB S, SPE, RA, HBSAG, HIV SCREEN, KAPPA, SADIE, HBCAB, SKIP SERUM #### [facility] , #### CYTOGENE, T4F, [id number], FISH NOT BLAD, MARÍA, TSH3, FLOW NEOGENOMIC, CMP, RETIC, SCAN CBC, FE and TIBC, LDH #### [address] Platelets (Bld) [#/Vol] 59 10*3/uL Low 150-450 [facility] Comment on above: Performed By: #### H BSAB, HCV RX PCR, CAMILA, CU, PLT AB S, SPE, RA, HBSAG, HIV SCREEN, KAPPA, SADIE, HBCAB, SKIP SERUM #### [facility] , #### CYTOGENE, T4F, [id number], FISH NOT BLAD, MARÍA, TSH3, FLOW NEOGENOMIC, CMP, RETIC, SCAN CBC, FE and TIBC, LDH #### [address] RBC (Bld) [#/Vol] 2.79 10*6/uL Low 3.90-5.60 [facility] Comment on above: Performed By: #### H BSAB, HCV RX PCR, CAMILA, CU, PLT AB S, SPE, RA, HBSAG, HIV SCREEN, KAPPA, SADIE, HBCAB, SKIP SERUM #### [facility] , #### CYTOGENE, T4F, [id number], FISH NOT BLAD, MARÍA, TSH3, FLOW NEOGENOMIC, CMP, RETIC, SCAN CBC, FE and TIBC, LDH #### [address] WBC (Bld) [#/Vol] 1.8 10*3/uL Low 4.1-10.5 [facility] Comment on above: Performed By: #### H BSAB, HCV RX PCR, CAMILA, CU, PLT AB S, SPE, RA, HBSAG, HIV SCREEN, KAPPA, SADIE, HBCAB, SKIP SERUM #### [facility] , #### CYTOGENE, T4F, [id number], FISH NOT BLAD, MARÍA, TSH3, FLOW NEOGENOMIC, CMP, RETIC, SCAN CBC, FE and TIBC, LDH #### [address] Basic Metabolic Panelon 06- Anion gap [Moles/Vol] 12.4 mmol/L Normal 6.0-15.0 [facility] Comment on above: Performed By: #### H BSAB, HCV RX PCR, CAMILA, CU, PLT AB S, SPE, RA, HBSAG, HIV SCREEN, KAPPA, SADIE, HBCAB, SKIP SERUM #### [facility] , #### CYTOGENE, T4F, [id number], FISH NOT BLAD, MARÍA, TSH3, FLOW NEOGENOMIC, CMP, RETIC, SCAN CBC, FE and TIBC, LDH #### [facility] [address] Calcium [Mass/Vol] 8.3 mg/dL Low 8.6-10.3 [facility] Comment on above: Performed By: #### H BSAB, HCV RX PCR, CAMILA, CU, PLT AB S, SPE, RA, HBSAG, HIV SCREEN, KAPPA, SADIE, HBCAB, SKIP SERUM #### [facility] , #### CYTOGENE, T4F, [id number], FISH NOT BLAD, MARÍA, TSH3, FLOW NEOGENOMIC, CMP, RETIC, SCAN CBC, FE and TIBC, LDH #### [facility] [address] Chloride [Moles/Vol] 107 mmol/L Normal 98-107 [facility] Comment on above: Performed By: #### H BSAB, HCV RX PCR, CAMILA, CU, PLT AB S, SPE, RA, HBSAG, HIV SCREEN, KAPPA, SADIE, HBCAB, SKIP SERUM #### [facility] , #### CYTOGENE, T4F, [id number], FISH NOT BLAD, MARÍA, TSH3, FLOW NEOGENOMIC, CMP, RETIC, SCAN CBC, FE and TIBC, LDH #### [facility] [address] CO2 [Moles/Vol] 20.5 mmol/L Low 21.0-31.0 [facility] Comment on above: Performed By: #### H BSAB, HCV RX PCR, CAMILA, CU, PLT AB S, SPE, RA, HBSAG, HIV SCREEN, KAPPA, SADIE, HBCAB, SKIP SERUM #### [facility] , #### CYTOGENE, T4F, [id number], FISH NOT BLAD, MARÍA, TSH3, FLOW NEOGENOMIC, CMP, RETIC, SCAN CBC, FE and TIBC, LDH #### [address] Creatinine [Mass/Vol] 1.02 mg/dL Normal 0.70-1.30 [facility] Comment on above: Performed By: #### H BSAB, HCV RX PCR, CAMILA, CU, PLT AB S, SPE, RA, HBSAG, HIV SCREEN, KAPPA, SADIE, HBCAB, SKIP SERUM #### [facility] , #### CYTOGENE, T4F, [id number], FISH NOT BLAD, MARÍA, TSH3, FLOW NEOGENOMIC, CMP, RETIC, SCAN CBC, FE and TIBC, LDH #### [address] Creatinine Clr Calc Pharmacy 61.61 Normal [facility] Comment on above: Result Comment: PERF ORMED BY: [place] [address] PATHOLOGIST CRYOGENICS REPAIRER OTTO HARLEY M.D. Performed By: #### H BSAB, HCV RX PCR, CAMILA, CU, PLT AB S, SPE, RA, HBSAG, HIV SCREEN, KAPPA, SADIE, HBCAB, SKIP SERUM #### [facility] , #### CYTOGENE, T4F, [id number], FISH NOT BLAD, MARÍA, TSH3, FLOW NEOGENOMIC, CMP, RETIC, SCAN CBC, FE and TIBC, LDH #### [address] GFR/1.73 sq M.predicted MDRD (S/P/Bld) [Vol rate/Area] mL/min/{1.73_m2} Normal [facility] Comment on above: Performed By: #### H BSAB, HCV RX PCR, CAMILA, CU, PLT AB S, SPE, RA, HBSAG, HIV SCREEN, KAPPA, SADIE, HBCAB, SKIP SERUM #### [facility] , #### CYTOGENE, T4F, [id number], FISH NOT BLAD, MARÍA, TSH3, FLOW NEOGENOMIC, CMP, RETIC, SCAN CBC, FE and TIBC, LDH #### [facility] [address] Glucose [Mass/Vol] 92 mg/dL Normal 70-100 [facility] Comment on above: Result Comment: [facility][note 3] Glucose Reference Range is dependent on time and content of last meal. Glucose of more than 200 mg/dL in a nonstressed, ambulatory subject supports the diagnosis of Diabetes Mellitus. ADA recommended reference range Performed By: #### H BSAB, HCV RX PCR, CAMILA, CU, PLT AB S, SPE, RA, HBSAG, HIV SCREEN, KAPPA, SADIE, HBCAB, SKIP SERUM #### [facility] , #### CYTOGENE, T4F, [id number], FISH NOT BLAD, MARÍA, TSH3, FLOW NEOGENOMIC, CMP, RETIC, SCAN CBC, FE and TIBC, LDH #### [facility] [address] [place] [address] [place] Potassium [Moles/Vol] 3.9 mmol/L Normal 3.5-5.1 [facility] Comment on above: Performed By: #### H BSAB, HCV RX PCR, CAMILA, CU, PLT AB S, SPE, RA, HBSAG, HIV SCREEN, KAPPA, SADIE, HBCAB, SKIP SERUM #### [facility] , #### CYTOGENE, T4F, [id number], FISH NOT BLAD, MARÍA, TSH3, FLOW NEOGENOMIC, CMP, RETIC, SCAN CBC, FE and TIBC, LDH #### [facility] [address] Sodium [Moles/Vol] 136 mmol/L Normal 136-145 [facility] Comment on above: Performed By: #### H BSAB, HCV RX PCR, CAMILA, CU, PLT AB S, SPE, RA, HBSAG, HIV SCREEN, KAPPA, SADIE, HBCAB, SKIP SERUM #### [facility] , #### CYTOGENE, T4F, [id number], FISH NOT BLAD, MARÍA, TSH3, FLOW NEOGENOMIC, CMP, RETIC, SCAN CBC, FE and TIBC, LDH #### [address] Urea nitrogen [Mass/Vol] 17 mg/dL Normal 7-25 [facility] Comment on above: Performed By: #### H BSAB, HCV RX PCR, CAMILA, CU, PLT AB S, SPE, RA, HBSAG, HIV SCREEN, KAPPA, SADIE, HBCAB, SKIP SERUM #### [facility] , #### CYTOGENE, T4F, [id number], FISH NOT BLAD, MARÍA, TSH3, FLOW NEOGENOMIC, CMP, RETIC, SCAN CBC, FE and TIBC, LDH #### [address] Magnesiumon 03-07-2024 Magnesium [Mass/Vol] 1.6 mg/dL Low 1.9-2.7 [facility] Comment on above: Result Comment: PERF ORMED BY: [place] [address] PATHOLOGIST CRYOGENICS REPAIRER OTTO HARLEY M.D. Performed By: #### H BSAB, HCV RX PCR, CAMILA, CU, PLT AB S, SPE, RA, HBSAG, HIV SCREEN, KAPPA, SADIE, HBCAB, SKIP SERUM #### [facility] , #### CYTOGENE, T4F, [id number], FISH NOT BLAD, MARÍA, TSH3, FLOW NEOGENOMIC, CMP, RETIC, SCAN CBC, FE and TIBC, LDH #### [address] Scan and CBCon 03-07-2024 Anisocytosis Ql (Bld) Marked Normal [facility] Comment on above: Performed By: #### H BSAB, HCV RX PCR, CAMILA, CU, PLT AB S, SPE, RA, HBSAG, HIV SCREEN, KAPPA, SADIE, HBCAB, SKIP SERUM #### [facility] , #### CYTOGENE, T4F, [id number], FISH NOT BLAD, MARÍA, TSH3, FLOW NEOGENOMIC, CMP, RETIC, SCAN CBC, FE and TIBC, LDH #### [address] Basophils (Bld) [#/Vol] 0.0 10*3/uL Normal 0.0-0.2 [facility] Comment on above: Performed By: #### H BSAB, HCV RX PCR, CAMILA, CU, PLT AB S, SPE, RA, HBSAG, HIV SCREEN, KAPPA, SADIE, HBCAB, SKIP SERUM #### [facility] , #### CYTOGENE, T4F, [id number], FISH NOT BLAD, MARÍA, TSH3, FLOW NEOGENOMIC, CMP, RETIC, SCAN CBC, FE and TIBC, LDH #### [address] Basophils/100 WBC (Bld) 0.3 % Normal . [facility] Comment on above: Performed By: #### H BSAB, HCV RX PCR, CAMILA, CU, PLT AB S, SPE, RA, HBSAG, HIV SCREEN, KAPPA, SADIE, HBCAB, SKIP SERUM #### [facility] , #### CYTOGENE, T4F, [id number], FISH NOT BLAD, MARÍA, TSH3, FLOW NEOGENOMIC, CMP, RETIC, SCAN CBC, FE and TIBC, LDH #### [address] Eosinophils (Bld) [#/Vol] 0.2 10*3/uL Normal 0.0-0.45 [facility] Comment on above: Performed By: #### H BSAB, HCV RX PCR, CAMILA, CU, PLT AB S, SPE, RA, HBSAG, HIV SCREEN, KAPPA, SADIE, HBCAB, SKIP SERUM #### [facility] , #### CYTOGENE, T4F, [id number], FISH NOT BLAD, MARÍA, TSH3, FLOW NEOGENOMIC, CMP, RETIC, SCAN CBC, FE and TIBC, LDH #### [address] Eosinophils/100 WBC (Bld) 10.7 % Normal . [facility] Comment on above: Performed By: #### H BSAB, HCV RX PCR, CAMILA, CU, PLT AB S, SPE, RA, HBSAG, HIV SCREEN, KAPPA, SADIE, HBCAB, SKIP SERUM #### [facility] , #### CYTOGENE, T4F, [id number], FISH NOT BLAD, MARÍA, TSH3, FLOW NEOGENOMIC, CMP, RETIC, SCAN CBC, FE and TIBC, LDH #### [address] Erythrocyte distribution width (RBC) [Ratio] 21.1 % High 12.0-14.8 [facility] Comment on above: Performed By: #### H BSAB, HCV RX PCR, CAMILA, CU, PLT AB S, SPE, RA, HBSAG, HIV SCREEN, KAPPA, SADIE, HBCAB, SKIP SERUM #### [facility] , #### CYTOGENE, T4F, [id number], FISH NOT BLAD, MARÍA, TSH3, FLOW NEOGENOMIC, CMP, RETIC, SCAN CBC, FE and TIBC, LDH #### [address] Hematocrit (Bld) [Volume fraction] 26.4 % Low 38.8-50.0 [facility] Comment on above: Performed By: #### H BSAB, HCV RX PCR, CAMILA, CU, PLT AB S, SPE, RA, HBSAG, HIV SCREEN, KAPPA, SADIE, HBCAB, SKIP SERUM #### [facility] , #### CYTOGENE, T4F, [id number], FISH NOT BLAD, MARÍA, TSH3, FLOW NEOGENOMIC, CMP, RETIC, SCAN CBC, FE and TIBC, LDH #### [address] Hemoglobin (Bld) [Mass/Vol] 9.3 g/dL Low 13.0-17.0 [facility] Comment on above: Performed By: #### H BSAB, HCV RX PCR, CAMILA, CU, PLT AB S, SPE, RA, HBSAG, HIV SCREEN, KAPPA, SADIE, HBCAB, SKIP SERUM #### [facility] , #### CYTOGENE, T4F, [id number], FISH NOT BLAD, MARÍA, TSH3, FLOW NEOGENOMIC, CMP, RETIC, SCAN CBC, FE and TIBC, LDH #### [facility] [address] Lymphocytes (Bld) [#/Vol] 1.0 10*3/uL Normal 1.00-4.8 [facility] Comment on above: Performed By: #### H BSAB, HCV RX PCR, CAMILA, CU, PLT AB S, SPE, RA, HBSAG, HIV SCREEN, KAPPA, SADIE, HBCAB, SKIP SERUM #### [facility] , #### CYTOGENE, T4F, [id number], FISH NOT BLAD, MARÍA, TSH3, FLOW NEOGENOMIC, CMP, RETIC, SCAN CBC, FE and TIBC, LDH #### [address] Lymphocytes/100 WBC (Bld) 49.0 % Normal . [facility] Comment on above: Performed By: #### H BSAB, HCV RX PCR, CAMILA, CU, PLT AB S, SPE, RA, HBSAG, HIV SCREEN, KAPPA, SADIE, HBCAB, SKIP SERUM #### [facility] , #### CYTOGENE, T4F, [id number], FISH NOT BLAD, MARÍA, TSH3, FLOW NEOGENOMIC, CMP, RETIC, SCAN CBC, FE and TIBC, LDH #### [address] MCH (RBC) [Entitic mass] 34.3 pg Normal 27.5-35.2 [facility] Comment on above: Performed By: #### H BSAB, HCV RX PCR, CAMILA, CU, PLT AB S, SPE, RA, HBSAG, HIV SCREEN, KAPPA, SADIE, HBCAB, SKIP SERUM #### [facility] , #### CYTOGENE, T4F, [id number], FISH NOT BLAD, MARÍA, TSH3, FLOW NEOGENOMIC, CMP, RETIC, SCAN CBC, FE and TIBC, LDH #### [address] MCV (RBC) [Entitic vol] 97.4 fL Normal 83.5-101 [facility] Comment on above: Performed By: #### H BSAB, HCV RX PCR, CAMILA, CU, PLT AB S, SPE, RA, HBSAG, HIV SCREEN, KAPPA, SADIE, HBCAB, SKIP SERUM #### [facility] , #### CYTOGENE, T4F, [id number], FISH NOT BLAD, MARÍA, TSH3, FLOW NEOGENOMIC, CMP, RETIC, SCAN CBC, FE and TIBC, LDH #### [address] Mean Corpuscular HGB Conc 35.2 g/dL Normal 32.5-35.6 [facility] Comment on above: Performed By: #### H BSAB, HCV RX PCR, CAMILA, CU, PLT AB S, SPE, RA, HBSAG, HIV SCREEN, KAPPA, SADIE, HBCAB, SKIP SERUM #### [facility] , #### CYTOGENE, T4F, [id number], FISH NOT BLAD, MARÍA, TSH3, FLOW NEOGENOMIC, CMP, RETIC, SCAN CBC, FE and TIBC, LDH #### [address] Monocytes (Bld) [#/Vol] 0.0 10*3/uL Normal 0.0-0.8 [facility] Comment on above: Performed By: #### H BSAB, HCV RX PCR, CAMILA, CU, PLT AB S, SPE, RA, HBSAG, HIV SCREEN, KAPPA, SADIE, HBCAB, SKIP SERUM #### [facility] , #### CYTOGENE, T4F, [id number], FISH NOT BLAD, MARÍA, TSH3, FLOW NEOGENOMIC, CMP, RETIC, SCAN CBC, FE and TIBC, LDH #### [address] Monocytes/100 WBC (Bld) 1.2 % Normal . [facility] Comment on above: Performed By: #### H BSAB, HCV RX PCR, CAMILA, CU, PLT AB S, SPE, RA, HBSAG, HIV SCREEN, KAPPA, SADIE, HBCAB, SKIP SERUM #### [facility] , #### CYTOGENE, T4F, [id number], FISH NOT BLAD, MARÍA, TSH3, FLOW NEOGENOMIC, CMP, RETIC, SCAN CBC, FE and TIBC, LDH #### [address] Neutrophils (Bld) [#/Vol] 0.8 10*3/uL Low 1.8-7.7 [facility] Comment on above: Performed By: #### H BSAB, HCV RX PCR, CAMILA, CU, PLT AB S, SPE, RA, HBSAG, HIV SCREEN, KAPPA, SADIE, HBCAB, SKIP SERUM #### [facility] , #### CYTOGENE, T4F, [id number], FISH NOT BLAD, MARÍA, TSH3, FLOW NEOGENOMIC, CMP, RETIC, SCAN CBC, FE and TIBC, LDH #### [address] Neutrophils/100 WBC (Bld) 38.8 % Normal . [facility] Comment on above: Performed By: #### H BSAB, HCV RX PCR, CAMILA, CU, PLT AB S, SPE, RA, HBSAG, HIV SCREEN, KAPPA, SADIE, HBCAB, SKIP SERUM #### [facility] , #### CYTOGENE, T4F, [id number], FISH NOT BLAD, MARÍA, TSH3, FLOW NEOGENOMIC, CMP, RETIC, SCAN CBC, FE and TIBC, LDH #### [place] [address] [place] NRBC% 0.5 /100{WBC} Normal 0-0.5 [facility] Comment on above: Performed By: #### H BSAB, HCV RX PCR, CAMILA, CU, PLT AB S, SPE, RA, HBSAG, HIV SCREEN, KAPPA, SADIE, HBCAB, SKIP SERUM #### [facility] , #### CYTOGENE, T4F, [id number], FISH NOT BLAD, MARÍA, TSH3, FLOW NEOGENOMIC, CMP, RETIC, SCAN CBC, FE and TIBC, LDH #### [address] Platelet Estimate Decreased Normal Normal [facility] Comment on above: Performed By: #### H BSAB, HCV RX PCR, CAMILA, CU, PLT AB S, SPE, RA, HBSAG, HIV SCREEN, KAPPA, SADIE, HBCAB, SKIP SERUM #### [facility] , #### CYTOGENE, T4F, [id number], FISH NOT BLAD, MARÍA, TSH3, FLOW NEOGENOMIC, CMP, RETIC, SCAN CBC, FE and TIBC, LDH #### [address] Platelet mean volume (Bld) [Entitic vol] 7.1 fL Normal 6.6-10.1 [facility] Comment on above: Performed By: #### H BSAB, HCV RX PCR, CAMILA, CU, PLT AB S, SPE, RA, HBSAG, HIV SCREEN, KAPPA, SADIE, HBCAB, SKIP SERUM #### [facility] , #### CYTOGENE, T4F, [id number], FISH NOT BLAD, MARÍA, TSH3, FLOW NEOGENOMIC, CMP, RETIC, SCAN CBC, FE and TIBC, LDH #### [address] Platelet Morphology Normal Normal Normal [facility] Comment on above: Result Comment: PERF ORMED BY: [place] [address] PATHOLOGIST CRYOGENICS REPAIRER JIANLAN SUN M.D. Performed By: #### H BSAB, HCV RX PCR, CAMILA, CU, PLT AB S, SPE, RA, HBSAG, HIV SCREEN, KAPPA, SADIE, HBCAB, SKIP SERUM #### [facility] , #### CYTOGENE, T4F, [id number], FISH NOT BLAD, MARÍA, TSH3, FLOW NEOGENOMIC, CMP, RETIC, SCAN CBC, FE and TIBC, LDH #### [facility] [address] Platelets (Bld) [#/Vol] 60 10*3/uL Low 150-450 [facility] Comment on above: Performed By: #### H BSAB, HCV RX PCR, CAMILA, CU, PLT AB S, SPE, RA, HBSAG, HIV SCREEN, KAPPA, SADIE, HBCAB, SKIP SERUM #### [facility] , #### CYTOGENE, T4F, [id number], FISH NOT BLAD, MARÍA, TSH3, FLOW NEOGENOMIC, CMP, RETIC, SCAN CBC, FE and TIBC, LDH #### [address] RBC (Bld) [#/Vol] 2.71 10*6/uL Low 3.90-5.60 [facility] Comment on above: Performed By: #### H BSAB, HCV RX PCR, CAMILA, CU, PLT AB S, SPE, RA, HBSAG, HIV SCREEN, KAPPA, SADIE, HBCAB, SKIP SERUM #### [facility] , #### CYTOGENE, T4F, [id number], FISH NOT BLAD, MARÍA, TSH3, FLOW NEOGENOMIC, CMP, RETIC, SCAN CBC, FE and TIBC, LDH #### [facility] [address] [place] [address] Rouleaux Slight Normal [facility] Comment on above: Performed By: #### H BSAB, HCV RX PCR, CAMILA, CU, PLT AB S, SPE, RA, HBSAG, HIV SCREEN, KAPPA, SADIE, HBCAB, SKIP SERUM #### [facility] , #### CYTOGENE, T4F, [id number], FISH NOT BLAD, MARÍA, TSH3, FLOW NEOGENOMIC, CMP, RETIC, SCAN CBC, FE and TIBC, LDH #### [address] WBC (Bld) [#/Vol] 2.0 10*3/uL Low 4.1-10.5 [facility] Comment on above: Performed By: #### H BSAB, HCV RX PCR, CAMILA, CU, PLT AB S, SPE, RA, HBSAG, HIV SCREEN, KAPPA, SADIE, HBCAB, SKIP SERUM #### [facility] , #### CYTOGENE, T4F, [id number], FISH NOT BLAD, MARÍA, TSH3, FLOW NEOGENOMIC, CMP, RETIC, SCAN CBC, FE and TIBC, LDH #### [address] Basic Metabolic Panelon 06- Anion gap [Moles/Vol] 13.3 mmol/L Normal 6.0-15.0 [facility] Comment on above: Performed By: #### H BSAB, HCV RX PCR, CAMILA, CU, PLT AB S, SPE, RA, HBSAG, HIV SCREEN, KAPPA, SADIE, HBCAB, SKIP SERUM #### [facility] , #### CYTOGENE, T4F, [id number], FISH NOT BLAD, MARÍA, TSH3, FLOW NEOGENOMIC, CMP, RETIC, SCAN CBC, FE and TIBC, LDH #### [address] Calcium [Mass/Vol] 8.7 mg/dL Normal 8.6-10.3 [facility] Comment on above: Performed By: #### H BSAB, HCV RX PCR, CAMILA, CU, PLT AB S, SPE, RA, HBSAG, HIV SCREEN, KAPPA, SADIE, HBCAB, SKIP SERUM #### [facility] , #### CYTOGENE, T4F, [id number], FISH NOT BLAD, MARÍA, TSH3, FLOW NEOGENOMIC, CMP, RETIC, SCAN CBC, FE and TIBC, LDH #### [facility] [address] Chloride [Moles/Vol] 109 mmol/L High 98-107 [facility] Comment on above: Performed By: #### H BSAB, HCV RX PCR, CAMILA, CU, PLT AB S, SPE, RA, HBSAG, HIV SCREEN, KAPPA, SADIE, HBCAB, SKIP SERUM #### [facility] , #### CYTOGENE, T4F, [id number], FISH NOT BLAD, MARÍA, TSH3, FLOW NEOGENOMIC, CMP, RETIC, SCAN CBC, FE and TIBC, LDH #### [address] CO2 [Moles/Vol] 20.9 mmol/L Low 21.0-31.0 [facility] Comment on above: Performed By: #### H BSAB, HCV RX PCR, CAMILA, CU, PLT AB S, SPE, RA, HBSAG, HIV SCREEN, KAPPA, SADIE, HBCAB, SKIP SERUM #### [facility] , #### CYTOGENE, T4F, [id number], FISH NOT BLAD, MARÍA, TSH3, FLOW NEOGENOMIC, CMP, RETIC, SCAN CBC, FE and TIBC, LDH #### [address] Creatinine [Mass/Vol] 1.32 mg/dL Significan t change up 0.70-1.30 [facility] Comment on above: Performed By: #### H BSAB, HCV RX PCR, CAMILA, CU, PLT AB S, SPE, RA, HBSAG, HIV SCREEN, KAPPA, SADIE, HBCAB, SKIP SERUM #### [facility] , #### CYTOGENE, T4F, [id number], FISH NOT BLAD, MARÍA, TSH3, FLOW NEOGENOMIC, CMP, RETIC, SCAN CBC, FE and TIBC, LDH #### [address] Creatinine Clr Calc Pharmacy 47.61 Normal [facility] Comment on above: Result Comment: PERF ORMED BY: [place] [address] PATHOLOGIST CRYOGENICS REPAIRER OTTO HARLEY M.D. Performed By: #### H BSAB, HCV RX PCR, CAMILA, CU, PLT AB S, SPE, RA, HBSAG, HIV SCREEN, KAPPA, SADIE, HBCAB, SKIP SERUM #### [facility] , #### CYTOGENE, T4F, [id number], FISH NOT BLAD, MARÍA, TSH3, FLOW NEOGENOMIC, CMP, RETIC, SCAN CBC, FE and TIBC, LDH #### [address] GFR/1.73 sq M.predicted MDRD (S/P/Bld) [Vol rate/Area] 55.900 mL/min/{1.73_m2} Normal [facility] Comment on above: Performed By: #### H BSAB, HCV RX PCR, CAMILA, CU, PLT AB S, SPE, RA, HBSAG, HIV SCREEN, KAPPA, SADIE, HBCAB, SKIP SERUM #### [facility] , #### CYTOGENE, T4F, [id number], FISH NOT BLAD, MARÍA, TSH3, FLOW NEOGENOMIC, CMP, RETIC, SCAN CBC, FE and TIBC, LDH #### [address] Glucose [Mass/Vol] 91 mg/dL Normal 70-100 [facility] Comment on above: Result Comment: [facility][note 3] Glucose Reference Range is dependent on time and content of last meal. Glucose of more than 200 mg/dL in a nonstressed, ambulatory subject supports the diagnosis of Diabetes Mellitus. ADA recommended reference range Performed By: #### H BSAB, HCV RX PCR, CAMILA, CU, PLT AB S, SPE, RA, HBSAG, HIV SCREEN, KAPPA, SADIE, HBCAB, SKIP SERUM #### [facility] , #### CYTOGENE, T4F, [id number], FISH NOT BLAD, MARÍA, TSH3, FLOW NEOGENOMIC, CMP, RETIC, SCAN CBC, FE and TIBC, LDH #### [address] Potassium [Moles/Vol] 4.2 mmol/L Normal 3.5-5.1 [facility] Comment on above: Performed By: #### H BSAB, HCV RX PCR, CAMILA, CU, PLT AB S, SPE, RA, HBSAG, HIV SCREEN, KAPPA, SADIE, HBCAB, SKIP SERUM #### [facility] , #### CYTOGENE, T4F, [id number], FISH NOT BLAD, MARÍA, TSH3, FLOW NEOGENOMIC, CMP, RETIC, SCAN CBC, FE and TIBC, LDH #### [address] Sodium [Moles/Vol] 139 mmol/L Normal 136-145 [facility] Comment on above: Performed By: #### H BSAB, HCV RX PCR, CAMILA, CU, PLT AB S, SPE, RA, HBSAG, HIV SCREEN, KAPPA, SADIE, HBCAB, SKIP SERUM #### [facility] , #### CYTOGENE, T4F, [id number], FISH NOT BLAD, MARÍA, TSH3, FLOW NEOGENOMIC, CMP, RETIC, SCAN CBC, FE and TIBC, LDH #### [address] Urea nitrogen [Mass/Vol] 28 mg/dL High 7-25 [facility] Comment on above: Performed By: #### H BSAB, HCV RX PCR, CAMILA, CU, PLT AB S, SPE, RA, HBSAG, HIV SCREEN, KAPPA, SADIE, HBCAB, SKIP SERUM #### [facility] , #### CYTOGENE, T4F, [id number], FISH NOT BLAD, MARÍA, TSH3, FLOW NEOGENOMIC, CMP, RETIC, SCAN CBC, FE and TIBC, LDH #### [address] Diff and CBCon 03-06-2024 Anisocytosis Ql (Bld) Marked Normal [facility] Comment on above: Performed By: #### H BSAB, HCV RX PCR, CAMILA, CU, PLT AB S, SPE, RA, HBSAG, HIV SCREEN, KAPPA, SADIE, HBCAB, SKIP SERUM #### [facility] , #### CYTOGENE, T4F, [id number], FISH NOT BLAD, MARÍA, TSH3, FLOW NEOGENOMIC, CMP, RETIC, SCAN CBC, FE and TIBC, LDH #### [address] Eosinophils/100 WBC (Bld) 7 % High 1-3 [facility] Comment on above: Performed By: #### H BSAB, HCV RX PCR, CAMILA, CU, PLT AB S, SPE, RA, HBSAG, HIV SCREEN, KAPPA, SADIE, HBCAB, SKIP SERUM #### [facility] , #### CYTOGENE, T4F, [id number], FISH NOT BLAD, MARÍA, TSH3, FLOW NEOGENOMIC, CMP, RETIC, SCAN CBC, FE and TIBC, LDH #### [address] Erythrocyte distribution width (RBC) [Ratio] 21.8 % High 12.0-14.8 [facility] Comment on above: Performed By: #### H BSAB, HCV RX PCR, CAMILA, CU, PLT AB S, SPE, RA, HBSAG, HIV SCREEN, KAPPA, SADIE, HBCAB, SKIP SERUM #### [facility] , #### CYTOGENE, T4F, [id number], FISH NOT BLAD, MARÍA, TSH3, FLOW NEOGENOMIC, CMP, RETIC, SCAN CBC, FE and TIBC, LDH #### [address] Hematocrit (Bld) [Volume fraction] 27.3 % Low 38.8-50.0 [facility] Comment on above: Performed By: #### H BSAB, HCV RX PCR, CAMILA, CU, PLT AB S, SPE, RA, HBSAG, HIV SCREEN, KAPPA, SADIE, HBCAB, SKIP SERUM #### [facility] , #### CYTOGENE, T4F, [id number], FISH NOT BLAD, MARÍA, TSH3, FLOW NEOGENOMIC, CMP, RETIC, SCAN CBC, FE and TIBC, LDH #### [address] Hemoglobin (Bld) [Mass/Vol] 9.4 g/dL Low 13.0-17.0 [facility] Comment on above: Performed By: #### H BSAB, HCV RX PCR, CAMILA, CU, PLT AB S, SPE, RA, HBSAG, HIV SCREEN, KAPPA, SADIE, HBCAB, SKIP SERUM #### [facility] , #### CYTOGENE, T4F, [id number], FISH NOT BLAD, MARÍA, TSH3, FLOW NEOGENOMIC, CMP, RETIC, SCAN CBC, FE and TIBC, LDH #### [address] Lymphocytes/100 WBC (Bld) 65 % High 18-42 [facility] Comment on above: Performed By: #### H BSAB, HCV RX PCR, CAMILA, CU, PLT AB S, SPE, RA, HBSAG, HIV SCREEN, KAPPA, SADIE, HBCAB, SKIP SERUM #### [facility] , #### CYTOGENE, T4F, [id number], FISH NOT BLAD, MARÍA, TSH3, FLOW NEOGENOMIC, CMP, RETIC, SCAN CBC, FE and TIBC, LDH #### [address] MCH (RBC) [Entitic mass] 34.0 pg Normal 27.5-35.2 [facility] Comment on above: Performed By: #### H BSAB, HCV RX PCR, CAMILA, CU, PLT AB S, SPE, RA, HBSAG, HIV SCREEN, KAPPA, SADIE, HBCAB, SKIP SERUM #### [facility] , #### CYTOGENE, T4F, [id number], FISH NOT BLAD, MARÍA, TSH3, FLOW NEOGENOMIC, CMP, RETIC, SCAN CBC, FE and TIBC, LDH #### [address] MCV (RBC) [Entitic vol] 98.5 fL Normal 83.5-101 [facility] Comment on above: Performed By: #### H BSAB, HCV RX PCR, CAMILA, CU, PLT AB S, SPE, RA, HBSAG, HIV SCREEN, KAPPA, SADIE, HBCAB, SKIP SERUM #### [facility] , #### CYTOGENE, T4F, [id number], FISH NOT BLAD, MARÍA, TSH3, FLOW NEOGENOMIC, CMP, RETIC, SCAN CBC, FE and TIBC, LDH #### [facility] [address] Mean Corpuscular HGB Conc 34.5 g/dL Normal 32.5-35.6 [facility] Comment on above: Performed By: #### H BSAB, HCV RX PCR, CAMILA, CU, PLT AB S, SPE, RA, HBSAG, HIV SCREEN, KAPPA, SADIE, HBCAB, SKIP SERUM #### [facility] , #### CYTOGENE, T4F, [id number], FISH NOT BLAD, MARÍA, TSH3, FLOW NEOGENOMIC, CMP, RETIC, SCAN CBC, FE and TIBC, LDH #### [facility] [address] Monocytes/100 WBC (Bld) 1 % Low 2-11 [facility] Comment on above: Performed By: #### H BSAB, HCV RX PCR, CAMILA, CU, PLT AB S, SPE, RA, HBSAG, HIV SCREEN, KAPPA, SADIE, HBCAB, SKIP SERUM #### [facility] , #### CYTOGENE, T4F, [id number], FISH NOT BLAD, MARÍA, TSH3, FLOW NEOGENOMIC, CMP, RETIC, SCAN CBC, FE and TIBC, LDH #### [facility] [address] Platelet Estimate Decreased Normal Normal [facility] Comment on above: Performed By: #### H BSAB, HCV RX PCR, CAMILA, CU, PLT AB S, SPE, RA, HBSAG, HIV SCREEN, KAPPA, SADIE, HBCAB, SKIP SERUM #### [facility] , #### CYTOGENE, T4F, [id number], FISH NOT BLAD, MARÍA, TSH3, FLOW NEOGENOMIC, CMP, RETIC, SCAN CBC, FE and TIBC, LDH #### [address] Platelet mean volume (Bld) [Entitic vol] 6.7 fL Normal 6.6-10.1 [facility] Comment on above: Result Comment: PERF ORMED BY: [place] [address] PATHOLOGIST CRYOGENICS REPAIRER OTTO HARLEY M.D. Performed By: #### H BSAB, HCV RX PCR, CAMILA, CU, PLT AB S, SPE, RA, HBSAG, HIV SCREEN, KAPPA, SADIE, HBCAB, SKIP SERUM #### [facility] , #### CYTOGENE, T4F, [id number], FISH NOT BLAD, MARÍA, TSH3, FLOW NEOGENOMIC, CMP, RETIC, SCAN CBC, FE and TIBC, LDH #### [address] Platelet Morphology Normal Normal Normal [facility] Comment on above: Result Comment: PERF ORMED BY: [place] [address] PATHOLOGIST CRYOGENICS REPAIRER OTTO HARLEY M.D. Performed By: #### H BSAB, HCV RX PCR, CAMILA, CU, PLT AB S, SPE, RA, HBSAG, HIV SCREEN, KAPPA, SADIE, HBCAB, SKIP SERUM #### [facility] , #### CYTOGENE, T4F, [id number], FISH NOT BLAD, MARÍA, TSH3, FLOW NEOGENOMIC, CMP, RETIC, SCAN CBC, FE and TIBC, LDH #### [address] Platelets (Bld) [#/Vol] 60 10*3/uL Low 150-450 [facility] Comment on above: Performed By: #### H BSAB, HCV RX PCR, CAMILA, CU, PLT AB S, SPE, RA, HBSAG, HIV SCREEN, KAPPA, SADIE, HBCAB, SKIP SERUM #### [facility] , #### CYTOGENE, T4F, [id number], FISH NOT BLAD, MARÍA, TSH3, FLOW NEOGENOMIC, CMP, RETIC, SCAN CBC, FE and TIBC, LDH #### [address] RBC (Bld) [#/Vol] 2.78 10*6/uL Low 3.90-5.60 [facility] Comment on above: Performed By: #### H BSAB, HCV RX PCR, CAMILA, CU, PLT AB S, SPE, RA, HBSAG, HIV SCREEN, KAPPA, SADIE, HBCAB, SKIP SERUM #### [facility] , #### CYTOGENE, T4F, [id number], FISH NOT BLAD, MARÍA, TSH3, FLOW NEOGENOMIC, CMP, RETIC, SCAN CBC, FE and TIBC, LDH #### [address] Rouleaux Slight Normal [facility] Comment on above: Performed By: #### H BSAB, HCV RX PCR, CAMILA, CU, PLT AB S, SPE, RA, HBSAG, HIV SCREEN, KAPPA, SADIE, HBCAB, SKIP SERUM #### [facility] , #### CYTOGENE, T4F, [id number], FISH NOT BLAD, MARÍA, TSH3, FLOW NEOGENOMIC, CMP, RETIC, SCAN CBC, FE and TIBC, LDH #### [address] Segmented neutrophils/100 WBC (Bld) 26 % Low 50-70 [facility] Comment on above: Performed By: #### H BSAB, HCV RX PCR, CAMILA, CU, PLT AB S, SPE, RA, HBSAG, HIV SCREEN, KAPPA, SADIE, HBCAB, SKIP SERUM #### [facility] , #### CYTOGENE, T4F, [id number], FISH NOT BLAD, MARÍA, TSH3, FLOW NEOGENOMIC, CMP, RETIC, SCAN CBC, FE and TIBC, LDH #### [address] WBC (Bld) [#/Vol] 1.9 10*3/uL Low 4.1-10.5 [facility] Comment on above: Performed By: #### H BSAB, HCV RX PCR, CAMILA, CU, PLT AB S, SPE, RA, HBSAG, HIV SCREEN, KAPPA, SADIE, HBCAB, SKIP SERUM #### [facility] , #### CYTOGENE, T4F, [id number], FISH NOT BLAD, MARÍA, TSH3, FLOW NEOGENOMIC, CMP, RETIC, SCAN CBC, FE and TIBC, LDH #### [address] Hemoglobin and Hematocriton 03-06-2024 Hematocrit (Bld) [Volume fraction] 26.0 % Low 38.8-50.0 [facility] Comment on above: Result Comment: PERF ORMED BY: [place] [address] PATHOLOGIST CRYOGENICS REPAIRER OTTO HARLEY M.D. Performed By: #### H BSAB, HCV RX PCR, CAMILA, CU, PLT AB S, SPE, RA, HBSAG, HIV SCREEN, KAPPA, SADIE, HBCAB, SKIP SERUM #### [facility] , #### CYTOGENE, T4F, [id number], FISH NOT BLAD, MARÍA, TSH3, FLOW NEOGENOMIC, CMP, RETIC, SCAN CBC, FE and TIBC, LDH #### [address] Hemoglobin (Bld) [Mass/Vol] 8.9 g/dL Low 13.0-17.0 [facility] Comment on above: Performed By: #### H BSAB, HCV RX PCR, CAMILA, CU, PLT AB S, SPE, RA, HBSAG, HIV SCREEN, KAPPA, SADIE, HBCAB, SKIP SERUM #### [facility] , #### CYTOGENE, T4F, [id number], FISH NOT BLAD, MARÍA, TSH3, FLOW NEOGENOMIC, CMP, RETIC, SCAN CBC, FE and TIBC, LDH #### [address] Hematocrit (Bld) [Volume fraction] 26.8 % Low 38.8-50.0 [facility] Comment on above: Result Comment: PERF ORMED BY: [place] [address] PATHOLOGIST CRYOGENICS REPAIRER OTTO HARLEY M.D. Performed By: #### H BSAB, HCV RX PCR, CAMILA, CU, PLT AB S, SPE, RA, HBSAG, HIV SCREEN, KAPPA, SADIE, HBCAB, SKIP SERUM #### [facility] , #### CYTOGENE, T4F, [id number], FISH NOT BLAD, MARÍA, TSH3, FLOW NEOGENOMIC, CMP, RETIC, SCAN CBC, FE and TIBC, LDH #### [address] Hemoglobin (Bld) [Mass/Vol] 9.1 g/dL Low 13.0-17.0 [facility] Comment on above: Performed By: #### H BSAB, HCV RX PCR, CAMILA, CU, PLT AB S, SPE, RA, HBSAG, HIV SCREEN, KAPPA, SADIE, HBCAB, SKIP SERUM #### [facility] , #### CYTOGENE, T4F, [id number], FISH NOT BLAD, MARÍA, TSH3, FLOW NEOGENOMIC, CMP, RETIC, SCAN CBC, FE and TIBC, LDH #### [address] Melvin 03-06-2024 L Specimen: [id number] Re ceived: 03/06/24 Status: SOUT Req Num: [id number] Spec Type: Bone Marro Leonard Dr: Bertha [...] Age/ Patient Sex Location Account Attending Physician JeriNeil ramirez 78/M 3T [id number] Vijay Aguilar MD SPEC NUM: [id number] RECD: 03/06/24 STATUS: URVASHI GOMEZ NUM: [id number] MOE: 03/06/24- DR: Bertha Cuevas MD ENTERED: 03/06/[address] [facility] [address]: SPEC TYPE: Bone Marro DEPT: BM [...] GIEMSA STN/8 Supplemental Report Addendum 2 Entered: 03/20/24 Supplemental for findings of the FISH Analysis for plasma cell myeloma IgH complex panel from [facility]: -IgH rearrangement to CCND1, FGFR3, MAF, and MAFB are all Not Detected but Atypical Addendum Signed (signature on file) Chaitanya Paulino MD 03/20/241905 Addendum 1 Entered: 03/19/24-1040 Supplemental for findings of Cytogenetics study from [facility]: -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,XY, add(6)(q13),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;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;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 ),+11,+2m Specimen: [id number] Received: 03/06/24 Status: URVASHI Ruth Num: [id number] Spec Type: Bone Kylee Valle Dr: Bertha Cuevas MD Tissues: A Bone Marrow Aspirate (Clot) (LT POST SUP ILIAC) B Bone Marrow Biopsy/Core (LT POST SUP ILIAC) Procedures: Reticulum I, Peripheral Smr, Iron/5, HE/6, Gross/Micro L4/2, Bm Smear/2, CD138/3, CD20, CD3, CD31, CD34, CD56, CD68, CYCLIN D1, E CADHERIN, Decalcification, PAS - Hemat, Bone Marrow TP, GIEMSA STN/8 Patient: Neil Wilcox [id number] (Continued) Specimen: [id number] Received: 03/06/24 (Continued) Supplemental Report (Continued) Signed (signature on file) Chaitanya Paulino MD 03/17/24 1856 Specimen: [id number] Received: 03/06/24 Status: URVASHI Gomez Num: [id number] Spec Type: Bone Marro Leonard Dr: Bertha Cuevas MD Tissues: A Bone Marrow Aspirate (Clot) (LT POST SUP ILIAC) B Bone Marrow Biopsy/Core (LT POST SUP ILIAC) Procedures: Reticulum I, Peripheral Smr, Iron/5, HE/6, Gross/Micro L4/2, Bm Smear/2, CD138/3, CD20, CD3, CD31, CD34, CD56, CD68, CYCLIN D1, E CADHERIN, Decalcification, PAS - Hemat, Bone Marrow TP, GIEMSA STN/8 Patient: Neil Wilcox [id number] (Continued) Specimen: [id number] Received: 03/06/24-957 (Continued) Supplemental Report (Continued) ar[cp3]/46,XY[18] Addendum Signed [...] (3q) (more content not included)... Normal [facility] Peripheral white blood cell differential % bands, microscopic examOrdered By: Berhta Cuevas on 03-06-2024 Band form neutrophils/100 WBC (Bld) 1 % Normal 0-5 [facility] Comment on above: Performed By: #### H BSAB, HCV RX PCR, CAMILA, CU, PLT AB S, SPE, RA, HBSAG, HIV SCREEN, KAPPA, SADIE, HBCAB, SKIP SERUM #### [facility] , #### CYTOGENE, T4F, [id number], FISH NOT BLAD, MARÍA, TSH3, FLOW NEOGENOMIC, CMP, RETIC, SCAN CBC, FE and TIBC, LDH #### [facility] [address] [place] [address] [facility] ABO/Rh Retypeon 03-05-2024 ABO/RH Recheck Result Positive Normal [facility] Comment on above: Result Comment: PERF ORMED BY: [facility] [address] [place] [id number] PATHOLOGIST CRYOGENICS REPAIRER OTTO HARLEY M.D. Activated partial thrombopla stin time (aPTT) in platelet poor plasma by coagulation aOrdered By: Trung Armenta on 03-05-2024 aPTT Coag (PPP) [Time] 29.7 s 25.1-36.5 [facility] Comment on above: A hematocrit value g reater than 55% may lead to inaccurate results in coagulation testing. Patients having hematocrit values >55% require a special collection tube for coagulation studies. Please contact the laboratory at [phone] for redraw instructions. Alanine aminotransferase [En zymatic activity/volume] in Serum or PlasmaOrdered By: Bertha Cuevas on 03-05-2024 ALT [Catalytic activity/Vol] 10 U/L Normal 7-52 [facility] Comment on above: Performed By: #### C MP ####[facility] [id number] [place] [address] [facility] Albumin [Mass/volume] in Ser um or Plasma by Bromocresol green (BCG) dye binding methoOrdered By: Bertha Cuevas on 03-05-2024 Albumin BCG dye [Mass/Vol] 3.1 g/dL Low 3.5-5.7 [facility] Alkaline phosphatase [Enzyma tic activity/volume] in Serum or PlasmaOrdered By: Bertha Cuevas on 03-05-2024 ALP [Catalytic activity/Vol] 61 U/L Normal 34-104 [facility] Comment on above: Result Comment: PERF ORMED BY: [facility] [address] [place] [address] PATHOLOGIST CRYOGENICS REPAIRER OTTO HARLEY M.D. Performed By: #### C MP ####[facility] Anisocytosis [Presence] in B lood by Light microscopyOrdered By: Trung Armenta on 03-05-2024 Anisocytosis Ql (Bld) Moderate Normal [facility] Comment on above: Performed By: #### H BSAB, HCV RX PCR, CAMILA, CU, PLT AB S, SPE, RA, HBSAG, HIV SCREEN, KAPPA, SADIE, HBCAB, SKIP SERUM #### [facility] , #### CYTOGENE, T4F, [id number], FISH NOT BLAD, MARÍA, TSH3, FLOW NEOGENOMIC, CMP, RETIC, SCAN CBC, FE and TIBC, LDH #### [facility] [address] Aspartate aminotransferase [ Enzymatic activity/volume] in Serum or PlasmaOrdered By: Bertha Cuevas on 03-05-2024 AST [Catalytic activity/Vol] 16 U/L Normal 13-39 [facility] Comment on above: Performed By: #### C MP ####[facility] Automated epithelial cells c ount in urine sediment (number/area)Ordered By: Trung Armenta on 03-05-2024 Epithelial cells Auto (Urine sed) [#/Area] 0-1 [HPF] 0-2 [facility] BNP ser/plasOrdered By: Trudi Armenta on 03-05-2024 Natriuretic peptide B (Bld) [Mass/Vol] 108.0 pg/mL High 5-100 [facility] Comment on above: Result Comment: PERF ORMED BY: [place] [address] PATHOLOGIST CRYOGENICS REPAIRER OTTO HARLEY M.D. Performed By: #### H BSAB, HCV RX PCR, CAMILA, CU, PLT AB S, SPE, RA, HBSAG, HIV SCREEN, KAPPA, SADIE, HBCAB, SKIP SERUM #### [facility] , #### CYTOGENE, T4F, [id number], FISH NOT BLAD, MARÍA, TSH3, FLOW NEOGENOMIC, CMP, RETIC, SCAN CBC, FE and TIBC, LDH #### [address] Bacteria [Presence] in Urine by AutomatedOrdered By: Trung Armenta on 03-05-2024 Bacteria Auto Ql (U) None seen [HPF] None Seen [facility] Basic Metabolic Panelon 02-22 Creatinine Clr Calc Pharmacy 28.70 Normal [facility] Comment on above: Result Comment: PERF ORMED BY: [place] [address] PATHOLOGIST CRYOGENICS REPAIRER OTTO HARLEY M.D. Performed By: #### H BSAB, HCV RX PCR, CAMILA, CU, PLT AB S, SPE, RA, HBSAG, HIV SCREEN, KAPPA, SADIE, HBCAB, SKIP SERUM #### [facility] , #### CYTOGENE, T4F, [id number], FISH NOT BLAD, MARÍA, TSH3, FLOW NEOGENOMIC, CMP, RETIC, SCAN CBC, FE and TIBC, LDH #### [address] GFR/1.73 sq M.predicted MDRD (S/P/Bld) [Vol rate/Area] 30.449 mL/min/{1.73_m2} Normal [facility] Comment on above: Performed By: #### H BSAB, HCV RX PCR, CAMILA, CU, PLT AB S, SPE, RA, HBSAG, HIV SCREEN, KAPPA, SADIE, HBCAB, SKIP SERUM #### [facility] , #### CYTOGENE, T4F, [id number], FISH NOT BLAD, MARÍA, TSH3, FLOW NEOGENOMIC, CMP, RETIC, SCAN CBC, FE and TIBC, LDH #### [address] Basophils Auto (Bld) [#/Vol] Ordered By: Trung Armenta on 03-05-2024 Basophils (Bld) [#/Vol] N/A [facility] Basophils Auto (Bld) [#/Vol] Ordered By: Bertha uCevas on 03-05-2024 Basophils (Bld) [#/Vol] N/A [facility] Basophils/100 WBC Auto (Bld) Ordered By: Trung Armenta on 03-05-2024 Basophils/100 WBC (Bld) N/A [facility] Basophils/100 WBC Auto (Bld) Ordered By: Bertha Cuevas on 03-05-2024 Basophils/100 WBC (Bld) N/A [facility] Basophils/100 leukocytes in Blood by Manual countOrdered By: Trung Armenta on 03-05-2024 Basophils/100 WBC (Bld) 0 % Normal 0-2 [facility] Comment on above: Performed By: #### H BSAB, HCV RX PCR, CAMILA, CU, PLT AB S, SPE, RA, HBSAG, HIV SCREEN, KAPPA, SADIE, HBCAB, SKIP SERUM #### [facility] , #### CYTOGENE, T4F, [id number], FISH NOT BLAD, MARÍA, TSH3, FLOW NEOGENOMIC, CMP, RETIC, SCAN CBC, FE and TIBC, LDH #### [facility] [address] Bilirubin Test strip Ql (U)O rdered By: Trung Armenta on 03-05-2024 Bilirubin Ql (U) Negative Negative [facility] Bilirubin.total [Mass/volume ] in Serum or PlasmaOrdered By: Bertha Cuevas on 03-05-2024 Bilirubin [Mass/Vol] 0.4 mg/dL Normal 0.3-1.0 [facility] Comment on above: Performed By: #### C MP ####[facility] [id number] Calcium [Mass/volume] in Ser um or PlasmaOrdered By: Trung Armenta on 03-05-2024 Calcium [Mass/Vol] 9.9 mg/dL Normal 8.6-10.3 [facility] Comment on above: Performed By: #### H BSAB, HCV RX PCR, CAMILA, CU, PLT AB S, SPE, RA, HBSAG, HIV SCREEN, KAPPA, SADIE, HBCAB, SKIP SERUM #### [facility] , #### CYTOGENE, T4F, [id number], FISH NOT BLAD, MARÍA, TSH3, FLOW NEOGENOMIC, CMP, RETIC, SCAN CBC, FE and TIBC, LDH #### [facility] [address] Calcium [Mass/volume] in Ser um or PlasmaOrdered By: artem Cuevas on 03-05-2024 Calcium [Mass/Vol] 9.8 mg/dL Normal 8.6-10.3 [facility] Comment on above: Performed By: #### C MP ####[address] Carbon dioxide, total [Moles /volume] in Serum or PlasmaOrdered By: Trung Armenta on 03-05-2024 CO2 [Moles/Vol] 24.0 mmol/L Normal 21.0-31.0 [facility] Comment on above: Performed By: #### H BSAB, HCV RX PCR, CAMILA, CU, PLT AB S, SPE, RA, HBSAG, HIV SCREEN, KAPPA, SADIE, HBCAB, SKIP SERUM #### [facility] , #### CYTOGENE, T4F, [id number], FISH NOT BLAD, MARÍA, TSH3, FLOW NEOGENOMIC, CMP, RETIC, SCAN CBC, FE and TIBC, LDH #### [place] [address] [place] Carbon dioxide, total [Moles /volume] in Serum or PlasmaOrdered By: artem Pearce on 03-05-2024 CO2 [Moles/Vol] 18.7 mmol/L Low 21.0-31.0 [facility] Comment on above: Performed By: #### C MP ####[place] [address] [place] Chloride [Moles/volume] in S dustin or PlasmaOrdered By: Trung Armenta on 03-05-2024 Chloride [Moles/Vol] 103 mmol/L Normal 98-107 [facility] Comment on above: Performed By: #### H BSAB, HCV RX PCR, CAMILA, CU, PLT AB S, SPE, RA, HBSAG, HIV SCREEN, KAPPA, SADIE, HBCAB, SKIP SERUM #### [facility] , #### CYTOGENE, T4F, [id number], FISH NOT BLAD, MARÍA, TSH3, FLOW NEOGENOMIC, CMP, RETIC, SCAN CBC, FE and TIBC, LDH #### [facility] [address] Chloride [Moles/volume] in S dustin or PlasmaOrdered By: Bertha Cuevas on 03-05-2024 Chloride [Moles/Vol] 104 mmol/L Normal 98-107 [facility] Comment on above: Performed By: #### C MP ####[facility] Color of Urine by AutoOrdere d By: Trung Armenta on 03-05-2024 Color (U) Yellow Normal Yellow [facility] Comment on above: Order Comment: Name Collection Type:: Clean-Voided Midstream Performed By: #### H BSAB, HCV RX PCR, CAMILA, CU, PLT AB S, SPE, RA, HBSAG, HIV SCREEN, KAPPA, SADIE, HBCAB, SKIP SERUM #### [facility] , #### CYTOGENE, T4F, [id number], FISH NOT BLAD, MARÍA, TSH3, FLOW NEOGENOMIC, CMP, RETIC, SCAN CBC, FE and TIBC, LDH #### [facility] [address] [place] [id number] [place] Complete Blood Count Auto Di ffon 03-05-2024 Mean Corpuscular HGB Conc 34.6 g/dL Normal 32.5-35.6 [facility] Comment on above: Order Comment: STAT FOR BX Performed By: #### H BSAB, HCV RX PCR, CAMILA, CU, PLT AB S, SPE, RA, HBSAG, HIV SCREEN, KAPPA, SADIE, HBCAB, SKIP SERUM #### [facility] , #### CYTOGENE, T4F, [id number], FISH NOT BLAD, MARÍA, TSH3, FLOW NEOGENOMIC, CMP, RETIC, SCAN CBC, FE and TIBC, LDH #### [facility] [address] Comprehensive Metabolic Pane melvin 03-05-2024 Albumin [Mass/Vol] 3.1 g/dL Low 3.5-5.7 [facility] Comment on above: Performed By: #### C MP ####[address] GFR/1.73 sq M.predicted MDRD (S/P/Bld) [Vol rate/Area] 31.659 mL/min/{1.73_m2} Normal [facility] Comment on above: Performed By: #### C MP ####[address] Creatine kinase [Enzymatic a ctivity/volume] in Serum or PlasmaOrdered By: Trung Armenta on 03-05-2024 CK [Catalytic activity/Vol] 60 U/L Normal 30-223 [facility] Comment on above: Performed By: #### H BSAB, HCV RX PCR, CAMILA, CU, PLT AB S, SPE, RA, HBSAG, HIV SCREEN, KAPPA, SADIE, HBCAB, SKIP SERUM #### [facility] , #### CYTOGENE, T4F, [id number], FISH NOT BLAD, MARÍA, TSH3, FLOW NEOGENOMIC, CMP, RETIC, SCAN CBC, FE and TIBC, LDH #### [address] Creatinine [Mass/volume] in Serum or PlasmaOrdered By: Trung Armenta on 03-05-2024 Creatinine [Mass/Vol] 2.19 mg/dL High 0.70-1.30 [facility] Comment on above: Performed By: #### H BSAB, HCV RX PCR, CAMILA, CU, PLT AB S, SPE, RA, HBSAG, HIV SCREEN, KAPPA, SADIE, HBCAB, SKIP SERUM #### [facility] , #### CYTOGENE, T4F, [id number], FISH NOT BLAD, MARÍA, TSH3, FLOW NEOGENOMIC, CMP, RETIC, SCAN CBC, FE and TIBC, LDH #### [facility] [address] Creatinine [Mass/volume] in Serum or PlasmaOrdered By: Bertha Cuevas on 03-05-2024 Creatinine [Mass/Vol] 2.12 mg/dL High 0.70-1.30 [facility] Comment on above: Performed By: #### C MP ####[facility] [place] [address] Diff and CBCon 03-05-2024 Macrocytosis Slight Normal [facility] Comment on above: Performed By: #### H BSAB, HCV RX PCR, CAMILA, CU, PLT AB S, SPE, RA, HBSAG, HIV SCREEN, KAPPA, SADIE, HBCAB, SKIP SERUM #### [facility] , #### CYTOGENE, T4F, [id number], FISH NOT BLAD, MARÍA, TSH3, FLOW NEOGENOMIC, CMP, RETIC, SCAN CBC, FE and TIBC, LDH #### [address] Mean Corpuscular HGB Conc 34.4 g/dL Normal 32.5-35.6 [facility] Comment on above: Performed By: #### H BSAB, HCV RX PCR, CAMILA, CU, PLT AB S, SPE, RA, HBSAG, HIV SCREEN, KAPPA, SADIE, HBCAB, SKIP SERUM #### [facility] , #### CYTOGENE, T4F, [id number], FISH NOT BLAD, MARÍA, TSH3, FLOW NEOGENOMIC, CMP, RETIC, SCAN CBC, FE and TIBC, LDH #### [address] Monocyte Distribution Width Normal 0.00-20.00 [facility] Comment on above: Result Comment: The predictive value of MDW for identifying sepsis in patients with hematological abnormalities has not been established Performed By: #### H BSAB, HCV RX PCR, CAMILA, CU, PLT AB S, SPE, RA, HBSAG, HIV SCREEN, KAPPA, SADIE, HBCAB, SKIP SERUM #### [facility] , #### CYTOGENE, T4F, [id number], FISH NOT BLAD, MARÍA, TSH3, FLOW NEOGENOMIC, CMP, RETIC, SCAN CBC, FE and TIBC, LDH #### [address] Platelet Estimate Decreased Normal Normal [facility] Comment on above: Performed By: #### H BSAB, HCV RX PCR, CAMILA, CU, PLT AB S, SPE, RA, HBSAG, HIV SCREEN, KAPPA, SADIE, HBCAB, SKIP SERUM #### [facility] , #### CYTOGENE, T4F, [id number], FISH NOT BLAD, MARÍA, TSH3, FLOW NEOGENOMIC, CMP, RETIC, SCAN CBC, FE and TIBC, LDH #### [address] Platelet Morphology Normal Normal Normal [facility] Comment on above: Result Comment: PERF ORMED BY: [place] [address] PATHOLOGIST CRYOGENICS REPAIRER OTTO HARLEY M.D. Performed By: #### H BSAB, HCV RX PCR, CAMILA, CU, PLT AB S, SPE, RA, HBSAG, HIV SCREEN, KAPPA, SADIE, HBCAB, SKIP SERUM #### [facility] , #### CYTOGENE, T4F, [id number], FISH NOT BLAD, MARÍA, TSH3, FLOW NEOGENOMIC, CMP, RETIC, SCAN CBC, FE and TIBC, LDH #### [address] Dipstick and Microscopicon 0 03-05-2024 Appearance (U) Clear Normal Clear [facility] Comment on above: Order Comment: Name Collection Type:: Clean-Voided Midstream Performed By: #### H BSAB, HCV RX PCR, CAMILA, CU, PLT AB S, SPE, RA, HBSAG, HIV SCREEN, KAPPA, SADIE, HBCAB, SKIP SERUM #### [facility] , #### CYTOGENE, T4F, [id number], FISH NOT BLAD, MARÍA, TSH3, FLOW NEOGENOMIC, CMP, RETIC, SCAN CBC, FE and TIBC, LDH #### [address] Bacteria,Urine None Seen Normal None Seen [facility] Comment on above: Order Comment: Name Collection Type:: Clean-Voided Midstream Performed By: #### H BSAB, HCV RX PCR, CAMILA, CU, PLT AB S, SPE, RA, HBSAG, HIV SCREEN, KAPPA, SADIE, HBCAB, SKIP SERUM #### [facility] , #### CYTOGENE, T4F, [id number], FISH NOT BLAD, MARÍA, TSH3, FLOW NEOGENOMIC, CMP, RETIC, SCAN CBC, FE and TIBC, LDH #### [address] Bilirubin,Urine Negative Normal Negative [facility] Comment on above: Order Comment: Name Collection Type:: Clean-Voided Midstream Performed By: #### H BSAB, HCV RX PCR, CAMILA, CU, PLT AB S, SPE, RA, HBSAG, HIV SCREEN, KAPPA, SADIE, HBCAB, SKIP SERUM #### [facility] , #### CYTOGENE, T4F, [id number], FISH NOT BLAD, MARÍA, TSH3, FLOW NEOGENOMIC, CMP, RETIC, SCAN CBC, FE and TIBC, LDH #### [address] Glucose Ql (U) Normal Normal Normal [facility] Comment on above: Order Comment: Name Collection Type:: Clean-Voided Midstream Performed By: #### H BSAB, HCV RX PCR, CAMILA, CU, PLT AB S, SPE, RA, HBSAG, HIV SCREEN, KAPPA, SADIE, HBCAB, SKIP SERUM #### [facility] , #### CYTOGENE, T4F, [id number], FISH NOT BLAD, MARÍA, TSH3, FLOW NEOGENOMIC, CMP, RETIC, SCAN CBC, FE and TIBC, LDH #### [address] Hyaline Casts,Urine 0-8 Normal 0-8 [facility] Comment on above: Order Comment: Name Collection Type:: Clean-Voided Midstream Result Comment: PERF ORMED BY: [place] [address] PATHOLOGIST CRYOGENICS REPAIRER OTTO HARLEY M.D. Performed By: #### H BSAB, HCV RX PCR, CAMILA, CU, PLT AB S, SPE, RA, HBSAG, HIV SCREEN, KAPPA, SADIE, HBCAB, SKIP SERUM #### [facility] , #### CYTOGENE, T4F, [id number], FISH NOT BLAD, MARÍA, TSH3, FLOW NEOGENOMIC, CMP, RETIC, SCAN CBC, FE and TIBC, LDH #### [address] Ketones Ql (U) Negative Normal Negative [facility] Comment on above: Order Comment: Name Collection Type:: Clean-Voided Midstream Performed By: #### H BSAB, HCV RX PCR, CAMILA, CU, PLT AB S, SPE, RA, HBSAG, HIV SCREEN, KAPPA, SADIE, HBCAB, SKIP SERUM #### [facility] , #### CYTOGENE, T4F, [id number], FISH NOT BLAD, MARÍA, TSH3, FLOW NEOGENOMIC, CMP, RETIC, SCAN CBC, FE and TIBC, LDH #### [address] Leukocyte esterase Test strip Ql (U) Negative Normal Negative [facility] Comment on above: Order Comment: Name Collection Type:: Clean-Voided Midstream Performed By: #### H BSAB, HCV RX PCR, CAMILA, CU, PLT AB S, SPE, RA, HBSAG, HIV SCREEN, KAPPA, SADIE, HBCAB, SKIP SERUM #### [facility] , #### CYTOGENE, T4F, [id number], FISH NOT BLAD, MARÍA, TSH3, FLOW NEOGENOMIC, CMP, RETIC, SCAN CBC, FE and TIBC, LDH #### [address] Nitrite,Urine Negative Normal Negative [facility] Comment on above: Order Comment: Name Collection Type:: Clean-Voided Midstream Performed By: #### H BSAB, HCV RX PCR, CAMILA, CU, PLT AB S, SPE, RA, HBSAG, HIV SCREEN, KAPPA, SADIE, HBCAB, SKIP SERUM #### [facility] , #### CYTOGENE, T4F, [id number], FISH NOT BLAD, MARÍA, TSH3, FLOW NEOGENOMIC, CMP, RETIC, SCAN CBC, FE and TIBC, LDH #### [address] Occult Blood,Urine Negative Normal Negative [facility] Comment on above: Order Comment: Name Collection Type:: Clean-Voided Midstream Result Comment: PERF ORMED BY: [place] [address] PATHOLOGIST CRYOGENICS REPAIRER OTTO HARLEY M.D. Performed By: #### H BSAB, HCV RX PCR, CAMILA, CU, PLT AB S, SPE, RA, HBSAG, HIV SCREEN, KAPPA, SADIE, HBCAB, SKIP SERUM #### [facility] , #### CYTOGENE, T4F, [id number], FISH NOT BLAD, MARÍA, TSH3, FLOW NEOGENOMIC, CMP, RETIC, SCAN CBC, FE and TIBC, LDH #### [address] RBC,Urine 1-2 Normal 0-4 [facility] Comment on above: Order Comment: Name Collection Type:: Clean-Voided Midstream Performed By: #### H BSAB, HCV RX PCR, CAMILA, CU, PLT AB S, SPE, RA, HBSAG, HIV SCREEN, KAPPA, SADIE, HBCAB, SKIP SERUM #### [facility] , #### CYTOGENE, T4F, [id number], FISH NOT BLAD, MARÍA, TSH3, FLOW NEOGENOMIC, CMP, RETIC, SCAN CBC, FE and TIBC, LDH #### [address] Specificy [place],Urine 1.018 Normal 1.001-1.03 0 [facility] Comment on above: Order Comment: Name Collection Type:: Clean-Voided Midstream Performed By: #### H BSAB, HCV RX PCR, CAMILA, CU, PLT AB S, SPE, RA, HBSAG, HIV SCREEN, KAPPA, SADIE, HBCAB, SKIP SERUM #### [facility] , #### CYTOGENE, T4F, [id number], FISH NOT BLAD, MARÍA, TSH3, FLOW NEOGENOMIC, CMP, RETIC, SCAN CBC, FE and TIBC, LDH #### [address] Squamous Epithelial Cell,Urine 0-1 Normal 0-2 [facility] Comment on above: Order Comment: Name Collection Type:: Clean-Voided Midstream Performed By: #### H BSAB, HCV RX PCR, CAMILA, CU, PLT AB S, SPE, RA, HBSAG, HIV SCREEN, KAPPA, SADIE, HBCAB, SKIP SERUM #### [facility] , #### CYTOGENE, T4F, [id number], FISH NOT BLAD, MARÍA, TSH3, FLOW NEOGENOMIC, CMP, RETIC, SCAN CBC, FE and TIBC, LDH #### [address] Urobilinogen,Urine Normal Normal Normal [facility] Comment on above: Order Comment: Name Collection Type:: Clean-Voided Midstream Performed By: #### H BSAB, HCV RX PCR, CAMILA, CU, PLT AB S, SPE, RA, HBSAG, HIV SCREEN, KAPPA, SADIE, HBCAB, SKIP SERUM #### [facility] , #### CYTOGENE, T4F, [id number], FISH NOT BLAD, MARÍA, TSH3, FLOW NEOGENOMIC, CMP, RETIC, SCAN CBC, FE and TIBC, LDH #### [facility] [address] WBC,Urine 3-4 Normal 0-4 [facility] Comment on above: Order Comment: Name Collection Type:: Clean-Voided Midstream Performed By: #### H BSAB, HCV RX PCR, CAMILA, CU, PLT AB S, SPE, RA, HBSAG, HIV SCREEN, KAPPA, SADIE, HBCAB, SKIP SERUM #### [facility] , #### CYTOGENE, T4F, [id number], FISH NOT BLAD, MARÍA, TSH3, FLOW NEOGENOMIC, CMP, RETIC, SCAN CBC, FE and TIBC, LDH #### [facility] [address] ECG 12 lead ECGon 03-05-2024 ECG 12 lead ECG [facility] [place] [address] [place] [address] Electrocardiograph Report Signed Patient: Neil Wilcox MR#: [id number] : 1945 Acct:[id number] Age/Sex: 78 / M ADM Date: 03/05/24 Loc: ER Room: Type: [facility] ER Attending Dr: Ordering Provider: [...] By Trung Armenta DO 1437 Normal [facility] Eosinophils Auto (Bld) [#/Vo l]Ordered By: Trung Armenta on 03-05-2024 Eosinophils (Bld) [#/Vol] N/A [facility] Eosinophils Auto (Bld) [#/Vo l]Ordered By: Bertha Cuevas on 03-05-2024 Eosinophils (Bld) [#/Vol] N/A [facility] Eosinophils/100 WBC Auto (Bl d)Ordered By: Trung Armenta on 03-05-2024 Eosinophils/100 WBC (Bld) N/A [facility] Eosinophils/100 WBC Auto (Bl d)Ordered By: Bertha Cuevas on 03-05-2024 Eosinophils/100 WBC (Bld) N/A [facility] Eosinophils/100 leukocytes i n Blood by Manual countOrdered By: Trung Armenta on 03-05-2024 Eosinophils/100 WBC (Bld) 10 % High 1-3 [facility] Comment on above: Performed By: #### H BSAB, HCV RX PCR, CAMILA, CU, PLT AB S, SPE, RA, HBSAG, HIV SCREEN, KAPPA, SADIE, HBCAB, SKIP SERUM #### [facility] , #### CYTOGENE, T4F, [id number], FISH NOT BLAD, MARÍA, TSH3, FLOW NEOGENOMIC, CMP, RETIC, SCAN CBC, FE and TIBC, LDH #### [facility] [address] Erythrocyte distribution wid th [Ratio] by Automated countOrdered By: Trung Armenta on 03-05-2024 Erythrocyte distribution width (RBC) [Ratio] 19.4 % High 12.0-14.8 [facility] Comment on above: Performed By: #### H BSAB, HCV RX PCR, CAMILA, CU, PLT AB S, SPE, RA, HBSAG, HIV SCREEN, KAPPA, SADIE, HBCAB, SKIP SERUM #### [facility] , #### CYTOGENE, T4F, [id number], FISH NOT BLAD, MARÍA, TSH3, FLOW NEOGENOMIC, CMP, RETIC, SCAN CBC, FE and TIBC, LDH #### [facility] [address] Erythrocyte distribution wid th [Ratio] by Automated countOrdered By: Bertha Pearce on 03-05-2024 Erythrocyte distribution width (RBC) [Ratio] 19.3 % High 12.0-14.8 [facility] Comment on above: Order Comment: STAT FOR BX Performed By: #### H BSAB, HCV RX PCR, CAMILA, CU, PLT AB S, SPE, RA, HBSAG, HIV SCREEN, KAPPA, SADIE, HBCAB, SKIP SERUM #### [facility] , #### CYTOGENE, T4F, [id number], FISH NOT BLAD, MARÍA, TSH3, FLOW NEOGENOMIC, CMP, RETIC, SCAN CBC, FE and TIBC, LDH #### [facility] [address] Erythrocytes [#/area] in Uri ne sediment by Automated countOrdered By: Trung Armenta on 03-05-2024 RBC Auto (Urine sed) [#/Area] 1-2 [HPF] 0-4 [facility] Erythrocytes [#/volume] in B lood by Automated countOrdered By: Trung Armenta on 03-05-2024 RBC (Bld) [#/Vol] 1.93 10*6/uL Low 3.90-5.60 [facility] Comment on above: Performed By: #### H BSAB, HCV RX PCR, CAMILA, CU, PLT AB S, SPE, RA, HBSAG, HIV SCREEN, KAPPA, SADIE, HBCAB, SKIP SERUM #### [facility] , #### CYTOGENE, T4F, [id number], FISH NOT BLAD, MARÍA, TSH3, FLOW NEOGENOMIC, CMP, RETIC, SCAN CBC, FE and TIBC, LDH #### [facility] [address] Erythrocytes [#/volume] in B lood by Automated countOrdered By: Bertha Cuevas on 03-05-2024 RBC (Bld) [#/Vol] 2.25 10*6/uL Low 3.90-5.60 [facility] Comment on above: Order Comment: STAT FOR BX Performed By: #### H BSAB, HCV RX PCR, CAMILA, CU, PLT AB S, SPE, RA, HBSAG, HIV SCREEN, KAPPA, SADIE, HBCAB, SKIP SERUM #### [facility] , #### CYTOGENE, T4F, [id number], FISH NOT BLAD, MARÍA, TSH3, FLOW NEOGENOMIC, CMP, RETIC, SCAN CBC, FE and TIBC, LDH #### [facility] [address] [place] [id number] [place] Glucose [Mass/volume] in Ser um or PlasmaOrdered By: Trung Armenta on 03-05-2024 Glucose [Mass/Vol] 113 mg/dL High 70-100 [facility] Comment on above: ADA recommended refe rence rangeRandom Glucose Reference Range is dependent on time and content of last meal. Glucose of more than 200 mg/dL in a nonstressed, ambulatory subject supports the diagnosis of Diabetes Mellitus. Result Comment: [place] om Glucose Reference Range is dependent on time and content of last meal. Glucose of more than 200 mg/dL in a nonstressed, ambulatory subject supports the diagnosis of Diabetes Mellitus. ADA recommended reference range Performed By: #### H BSAB, HCV RX PCR, CAMILA, CU, PLT AB S, SPE, RA, HBSAG, HIV SCREEN, KAPPA, SADIE, HBCAB, SKIP SERUM #### [facility] , #### CYTOGENE, T4F, [id number], FISH NOT BLAD, MARÍA, TSH3, FLOW NEOGENOMIC, CMP, RETIC, SCAN CBC, FE and TIBC, LDH #### [facility] [address] [place] [id number] [place] Glucose [Mass/volume] in Ser um or PlasmaOrdered By: Bertha Cuevas on 03-05-2024 Glucose [Mass/Vol] 110 mg/dL High 70-100 [facility] Comment on above: ADA recommended refe rence rangeRandom Glucose Reference Range is dependent on time and content of last meal. Glucose of more than 200 mg/dL in a nonstressed, ambulatory subject supports the diagnosis of Diabetes Mellitus. Result Comment: [place] om Glucose Reference Range is dependent on time and content of last meal. Glucose of more than 200 mg/dL in a nonstressed, ambulatory subject supports the diagnosis of Diabetes Mellitus. ADA recommended reference range Performed By: #### C MP ####[facility] Hematocrit [Volume Fraction] of Blood by Automated countOrdered By: Trung Armenta on 03-05-2024 Hematocrit (Bld) [Volume fraction] 20.1 % Low 38.8-50.0 [facility] Comment on above: Performed By: #### H BSAB, HCV RX PCR, CAMILA, CU, PLT AB S, SPE, RA, HBSAG, HIV SCREEN, KAPPA, SADIE, HBCAB, SKIP SERUM #### [facility] , #### CYTOGENE, T4F, [id number], FISH NOT BLAD, MARÍA, TSH3, FLOW NEOGENOMIC, CMP, RETIC, SCAN CBC, FE and TIBC, LDH #### [facility] [address] Hematocrit [Volume Fraction] of Blood by Automated countOrdered By: Bertha Pearce on 03-05-2024 Hematocrit (Bld) [Volume fraction] 23.5 % Low 38.8-50.0 [facility] Comment on above: Order Comment: STAT FOR BX Performed By: #### H BSAB, HCV RX PCR, CAMILA, CU, PLT AB S, SPE, RA, HBSAG, HIV SCREEN, KAPPA, SADIE, HBCAB, SKIP SERUM #### [facility] , #### CYTOGENE, T4F, [id number], FISH NOT BLAD, MARÍA, TSH3, FLOW NEOGENOMIC, CMP, RETIC, SCAN CBC, FE and TIBC, LDH #### [facility] [address] Hemoglobin [Mass/volume] in BloodOrdered By: Trung Armenta on 03-05-2024 Hemoglobin (Bld) [Mass/Vol] 6.9 g/dL Low 13.0-17.0 [facility] Comment on above: Performed By: #### H BSAB, HCV RX PCR, CAMILA, CU, PLT AB S, SPE, RA, HBSAG, HIV SCREEN, KAPPA, SADIE, HBCAB, SKIP SERUM #### [facility] , #### CYTOGENE, T4F, [id number], FISH NOT BLAD, MARÍA, TSH3, FLOW NEOGENOMIC, CMP, RETIC, SCAN CBC, FE and TIBC, LDH #### [facility] [address] Hemoglobin [Mass/volume] in BloodOrdered By: Bertha Cuevas on 03-05-2024 Hemoglobin (Bld) [Mass/Vol] 8.1 g/dL Low 13.0-17.0 [facility] Comment on above: Order Comment: STAT FOR BX Performed By: #### H BSAB, HCV RX PCR, CAMILA, CU, PLT AB S, SPE, RA, HBSAG, HIV SCREEN, KAPPA, SADIE, HBCAB, SKIP SERUM #### [facility] , #### CYTOGENE, T4F, [id number], FISH NOT BLAD, MARÍA, TSH3, FLOW NEOGENOMIC, CMP, RETIC, SCAN CBC, FE and TIBC, LDH #### [facility] [address] Hemoglobin and Hematocriton 03-05-2024 Hematocrit (Bld) [Volume fraction] 24.9 % Low 38.8-50.0 [facility] Comment on above: Result Comment: PERF ORMED BY: [place] [address] PATHOLOGIST CRYOGENICS REPAIRER OTTO HARLEY M.D. Performed By: #### H BSAB, HCV RX PCR, CAMILA, CU, PLT AB S, SPE, RA, HBSAG, HIV SCREEN, KAPPA, SADIE, HBCAB, SKIP SERUM #### [facility] , #### CYTOGENE, T4F, [id number], FISH NOT BLAD, MARÍA, TSH3, FLOW NEOGENOMIC, CMP, RETIC, SCAN CBC, FE and TIBC, LDH #### [facility] [address] Hemoglobin (Bld) [Mass/Vol] 8.6 g/dL Low 13.0-17.0 [facility] Comment on above: Performed By: #### H BSAB, HCV RX PCR, CAMILA, CU, PLT AB S, SPE, RA, HBSAG, HIV SCREEN, KAPPA, SADIE, HBCAB, SKIP SERUM #### [facility] , #### CYTOGENE, T4F, [id number], FISH NOT BLAD, MARÍA, TSH3, FLOW NEOGENOMIC, CMP, RETIC, SCAN CBC, FE and TIBC, LDH #### [facility] [address] INR in Platelet poor plasma by Coagulation assayOrdered By: Trung Armenta on 03-05-2024 INR Coag (PPP) [Relative time] 1.3 {INR} Normal [facility] Comment on above: INR Therapeutic Rang e [...] valves: 3 - 4.5 Performed By: #### H BSAB, HCV RX PCR, CAMILA, CU, PLT AB S, SPE, RA, HBSAG, HIV SCREEN, KAPPA, SADIE, HBCAB, SKIP SERUM #### [facility] , #### CYTOGENE, T4F, [id number], FISH NOT BLAD, MARÍA, TSH3, FLOW NEOGENOMIC, CMP, RETIC, SCAN CBC, FE and TIBC, LDH #### [facility] [address] [place] [address] [place] Ketones Auto test strip (U) [Mass/Vol]Ordered By: Trung Armenta on 03-05-2024 Ketones (U) [Mass/Vol] Negative Negative [facility] - UrinalysisOrder ed By: Trung Armenta on 03-05-2024 Hyaline casts LM Ql (Urine sed) 0-8 [LPF] 0-8 [facility] LeukoReduced RBCon LeukoReduced RBC TRANSFUSED 03/05/24 1636 Normal [facility] Leukocytes [#/area] in Urine sediment by Automated countOrdered By: Trung Armenta on 03-05-2024 WBC Auto (Urine sed) [#/Area] 3-4 [HPF] 0-4 [facility] Leukocytes [#/volume] correc myrtle for nucleated erythrocytes in Blood by Automated counOrdered By: Trung Armenta on 03-05-2024 WBC corrected for nucl RBC Auto (Bld) [#/Vol] 1.6 10*3/uL 4.1-10.5 [facility] Leukocytes [#/volume] correc myrtle for nucleated erythrocytes in Blood by Automated counOrdered By: Bertha Cuevas on 03-05-2024 WBC corrected for nucl RBC Auto (Bld) [#/Vol] 1.5 10*3/uL Low 4.1-10.5 [facility] Leukocytes [#/volume] in Blo od by Automated countOrdered By: rTung Armenta on 03-05-2024 WBC (Bld) [#/Vol] 1.6 10*3/uL Low 4.1-10.5 [facility] Comment on above: Performed By: #### H BSAB, HCV RX PCR, CAMILA, CU, PLT AB S, SPE, RA, HBSAG, HIV SCREEN, KAPPA, SADIE, HBCAB, SKIP SERUM #### [facility] , #### CYTOGENE, T4F, [id number], FISH NOT BLAD, MARÍA, TSH3, FLOW NEOGENOMIC, CMP, RETIC, SCAN CBC, FE and TIBC, LDH #### [facility] [address] Leukocytes [#/volume] in Blo od by Automated countOrdered By: Bertha Cuevas on 03-05-2024 WBC (Bld) [#/Vol] 1.5 10*3/uL Low 4.1-10.5 [facility] Comment on above: Order Comment: STAT FOR BX Performed By: #### H BSAB, HCV RX PCR, CAMILA, CU, PLT AB S, SPE, RA, HBSAG, HIV SCREEN, KAPPA, SADIE, HBCAB, SKIP SERUM #### [facility] , #### CYTOGENE, T4F, [id number], FISH NOT BLAD, MARÍA, TSH3, FLOW NEOGENOMIC, CMP, RETIC, SCAN CBC, FE and TIBC, LDH #### [facility] [address] Lymphocytes Auto (Bld) [#/Vo l]Ordered By: Trung Armenta on 03-05-2024 Lymphocytes (Bld) [#/Vol] N/A [facility] Lymphocytes Auto (Bld) [#/Vo l]Ordered By: Bertha Cuevas on 03-05-2024 Lymphocytes (Bld) [#/Vol] N/A [facility] Lymphocytes/100 WBC Auto (Bl d)Ordered By: Trung Armenta on 03-05-2024 Lymphocytes/100 WBC (Bld) N/A [facility] Lymphocytes/100 WBC Auto (Bl d)Ordered By: artem Cuevas on 03-05-2024 Lymphocytes/100 WBC (Bld) N/A [facility] Lymphocytes/100 leukocytes i n Blood by Manual countOrdered By: Trung Armenta on 03-05-2024 Lymphocytes/100 WBC (Bld) 54 % High 18-42 [facility] Comment on above: Performed By: #### H BSAB, HCV RX PCR, CAMILA, CU, PLT AB S, SPE, RA, HBSAG, HIV SCREEN, KAPPA, SADIE, HBCAB, SKIP SERUM #### [facility] , #### CYTOGENE, T4F, [id number], FISH NOT BLAD, MARÍA, TSH3, FLOW NEOGENOMIC, CMP, RETIC, SCAN CBC, FE and TIBC, LDH #### [address] MCH [Entitic mass] by Automa myrtle countOrdered By: Trung Armenta on 03-05-2024 MCH (RBC) [Entitic mass] 35.9 pg High 27.5-35.2 [facility] Comment on above: Performed By: #### H BSAB, HCV RX PCR, CAMILA, CU, PLT AB S, SPE, RA, HBSAG, HIV SCREEN, KAPPA, SADIE, HBCAB, SKIP SERUM #### [facility] , #### CYTOGENE, T4F, [id number], FISH NOT BLAD, MARÍA, TSH3, FLOW NEOGENOMIC, CMP, RETIC, SCAN CBC, FE and TIBC, LDH #### [facility] [address] [place] [address] MCH [Entitic mass] by Automa myrtle countOrdered By: Bertha Cuevas on 03-05-2024 MCH (RBC) [Entitic mass] 36.2 pg High 27.5-35.2 [facility] Comment on above: Order Comment: STAT FOR BX Performed By: #### H BSAB, HCV RX PCR, CAMILA, CU, PLT AB S, SPE, RA, HBSAG, HIV SCREEN, KAPPA, SADIE, HBCAB, SKIP SERUM #### [facility] , #### CYTOGENE, T4F, [id number], FISH NOT BLAD, MARÍA, TSH3, FLOW NEOGENOMIC, CMP, RETIC, SCAN CBC, FE and TIBC, LDH #### [facility] [address] [place] [address] MCHC Auto (RBC) [Mass/Vol]Or dered By: Trung Armenta on 03-05-2024 MCHC (RBC) [Mass/Vol] 34.4 g/dL 32.5-35.6 [facility] MCHC Auto (RBC) [Mass/Vol]Or dered By: Bertha Cuevas on 03-05-2024 MCHC (RBC) [Mass/Vol] 34.6 g/dL 32.5-35.6 [facility] MCV [Entitic volume] by Auto mated countOrdered By: Trung Armenta on 03-05-2024 MCV (RBC) [Entitic vol] 104.2 fL High 83.5-101 [facility] Comment on above: Performed By: #### H BSAB, HCV RX PCR, CAMILA, CU, PLT AB S, SPE, RA, HBSAG, HIV SCREEN, KAPPA, SADIE, HBCAB, SKIP SERUM #### [facility] , #### CYTOGENE, T4F, [id number], FISH NOT BLAD, MARÍA, TSH3, FLOW NEOGENOMIC, CMP, RETIC, SCAN CBC, FE and TIBC, LDH #### [facility] [address] MCV [Entitic volume] by Auto mated countOrdered By: Bertha Cuevas on 03-05-2024 MCV (RBC) [Entitic vol] 104.6 fL High 83.5-101 [facility] Comment on above: Order Comment: STAT FOR BX Performed By: #### H BSAB, HCV RX PCR, CAMILA, CU, PLT AB S, SPE, RA, HBSAG, HIV SCREEN, KAPPA, SADIE, HBCAB, SKIP SERUM #### [facility] , #### CYTOGENE, T4F, [id number], FISH NOT BLAD, MARÍA, TSH3, FLOW NEOGENOMIC, CMP, RETIC, SCAN CBC, FE and TIBC, LDH #### [facility] [address] Macrocytes LM Ql (Bld)Ordere d By: Trung Armenta on 03-05-2024 Macrocytes Ql (Bld) Slight [facility] Manual blood segmented neutr ophils/100 leukocytesOrdered By: Trung Armenta on 03-05-2024 Segmented neutrophils/100 WBC (Bld) 31 % Low 50-70 [facility] Comment on above: Performed By: #### H BSAB, HCV RX PCR, CAMILA, CU, PLT AB S, SPE, RA, HBSAG, HIV SCREEN, KAPPA, SADIE, HBCAB, SKIP SERUM #### [facility] , #### CYTOGENE, T4F, [id number], FISH NOT BLAD, MARÍA, TSH3, FLOW NEOGENOMIC, CMP, RETIC, SCAN CBC, FE and TIBC, LDH #### [facility] [address] Monocyte distribution width [Entitic volume] in Blood by AutomatedOrdered By: Trung Armenta on 03-05-2024 Monocyte distribution width Auto (Bld) [Entitic vol] See comment 0.00-20.00 [facility] Comment on above: The predictive value of MDW for identifying sepsis in patients with hematological abnormalities has not been established Monocytes Auto (Bld) [#/Vol] Ordered By: Trung Armenta on 03-05-2024 Monocytes (Bld) [#/Vol] N/A [facility] Monocytes Auto (Bld) [#/Vol] Ordered By: Bertha Cuevas on 03-05-2024 Monocytes (Bld) [#/Vol] N/A [facility] Monocytes/100 WBC Auto (Bld) Ordered By: Trung Armenta on 03-05-2024 Monocytes/100 WBC (Bld) N/A [facility] Monocytes/100 WBC Auto (Bld) Ordered By: Bertha Cuevas on 03-05-2024 Monocytes/100 WBC (Bld) N/A [facility] Monocytes/100 leukocytes in Blood by Manual countOrdered By: Trung Armenta on 03-05-2024 Monocytes/100 WBC (Bld) 0 % Low 2-11 [facility] Comment on above: Performed By: #### H BSAB, HCV RX PCR, CAMILA, CU, PLT AB S, SPE, RA, HBSAG, HIV SCREEN, KAPPA, SADIE, HBCAB, SKIP SERUM #### [facility] , #### CYTOGENE, T4F, [id number], FISH NOT BLAD, MARÍA, TSH3, FLOW NEOGENOMIC, CMP, RETIC, SCAN CBC, FE and TIBC, LDH #### [facility] [address] Neutrophils Auto (Bld) [#/Vo l]Ordered By: Trung Armenta on 03-05-2024 Neutrophils (Bld) [#/Vol] N/A [facility] Neutrophils Auto (Bld) [#/Vo l]Ordered By: Bertha Cuevas on 03-05-2024 Neutrophils (Bld) [#/Vol] N/A [facility] Neutrophils/100 WBC Auto (Bl d)Ordered By: Trung Armenta on 03-05-2024 Neutrophils/100 WBC (Bld) N/A [facility] Neutrophils/100 WBC Auto (Bl d)Ordered By: Bertha Cuevas on 03-05-2024 Neutrophils/100 WBC (Bld) N/A [facility] Nitrite Test strip Ql (U)Ord ered By: Trung Armenta on 03-05-2024 Nitrite Ql (U) Negative Negative [facility] No Panel InformationOrdered By: Trung Armenta on 03-05-2024 Stool Occult Blood (AMY) [facility] Estimated GFR (CKD-EPI) 30.449 mL/Min [facility] Creatinine Clearance (Chem 28.70 [facility] No Panel InformationOrdered By: Bertha Cuevas on 03-05-2024 Estimated GFR (CKD-EPI) 31.659 mL/Min [facility] Creatinine Clearance (Chem N/A [facility] Nucleated erythrocytes [Pres ence] in Blood by Automated countOrdered By: Trung Armenta on 03-05-2024 Nucleated RBC Auto Ql (Bld) N/A [facility] Nucleated erythrocytes [Pres ence] in Blood by Automated countOrdered By: Bertha Cuevas on 03-05-2024 Nucleated RBC Auto Ql (Bld) N/A [facility] Partial Thromboplastin Timeo n 03-05-2024 aPTT Coag (Bld) [Time] 29.7 s Normal 25.1-36.5 [facility] Comment on above: Result Comment: A he matocrit value greater than 55% may lead to inaccurate results in coagulation testing. Patients having hematocrit values >55% require a special collection tube for coagulation studies. Please contact the laboratory at [phone] for redraw instructions. PERFORMED BY: [facility] [place] [address] PATHOLOGIST CRYOGENICS REPAIRER OTTO HARLEY M.D. Performed By: #### H BSAB, HCV RX PCR, CAMILA, CU, PLT AB S, SPE, RA, HBSAG, HIV SCREEN, KAPPA, SADIE, HBCAB, SKIP SERUM #### [facility] , #### CYTOGENE, T4F, [id number], FISH NOT BLAD, MARÍA, TSH3, FLOW NEOGENOMIC, CMP, RETIC, SCAN CBC, FE and TIBC, LDH #### [address] Peripheral white blood cell differential % bands, microscopic examOrdered By: Trung Armenta on 03-05-2024 Band form neutrophils/100 WBC (Bld) 5 % Normal 0-5 [facility] Comment on above: Performed By: #### H BSAB, HCV RX PCR, CAMILA, CU, PLT AB S, SPE, RA, HBSAG, HIV SCREEN, KAPPA, SADIE, HBCAB, SKIP SERUM #### [facility] , #### CYTOGENE, T4F, [id number], FISH NOT BLAD, MARÍA, TSH3, FLOW NEOGENOMIC, CMP, RETIC, SCAN CBC, FE and TIBC, LDH #### [address] Platelet adequacy [Presence] in Blood by Light microscopyOrdered By: Trung Armenta on 03-05-2024 Platelets LM Ql (Bld) Decreased Normal [facility] Platelet mean volume [Entiti c volume] in Blood by Automated countOrdered By: Trung Armenta on 03-05-2024 Platelet mean volume (Bld) [Entitic vol] 7.6 fL Normal 6.6-10.1 [facility] Comment on above: Result Comment: PERF ORMED BY: [address] [address] PATHOLOGIST CRYOGENICS REPAIRER OTTO HARLEY M.D. Performed By: #### H BSAB, HCV RX PCR, CAMILA, CU, PLT AB S, SPE, RA, HBSAG, HIV SCREEN, KAPPA, SADIE, HBCAB, SKIP SERUM #### [facility] , #### CYTOGENE, T4F, [id number], FISH NOT BLAD, MARÍA, TSH3, FLOW NEOGENOMIC, CMP, RETIC, SCAN CBC, FE and TIBC, LDH #### [facility] [address] [place] [address] Platelet mean volume [Entiti c volume] in Blood by Automated countOrdered By: Bertha Cuevas on 03-05-2024 Platelet mean volume (Bld) [Entitic vol] 8.0 fL Normal 6.6-10.1 [facility] Comment on above: Order Comment: STAT FOR BX Result Comment: PERF ORMED BY: [place] [address] PATHOLOGIST CRYOGENICS REPAIRER OTTO HARLEY M.D. Performed By: #### H BSAB, HCV RX PCR, CAMILA, CU, PLT AB S, SPE, RA, HBSAG, HIV SCREEN, KAPPA, SADIE, HBCAB, SKIP SERUM #### [facility] , #### CYTOGENE, T4F, [id number], FISH NOT BLAD, MARÍA, TSH3, FLOW NEOGENOMIC, CMP, RETIC, SCAN CBC, FE and TIBC, LDH #### [address] Platelet morphology finding [Identifier] in BloodOrdered By: Trung Armenta on 03-05-2024 Platelet morphology finding Nom (Bld) Normal Normal [facility] Platelets [#/volume] in Bloo d by Automated countOrdered By: Trung Armenta on 03-05-2024 Platelets (Bld) [#/Vol] 67 10*3/uL Low 150-450 [facility] Comment on above: Performed By: #### H BSAB, HCV RX PCR, CAMILA, CU, PLT AB S, SPE, RA, HBSAG, HIV SCREEN, KAPPA, SADIE, HBCAB, SKIP SERUM #### [facility] , #### CYTOGENE, T4F, [id number], FISH NOT BLAD, MARÍA, TSH3, FLOW NEOGENOMIC, CMP, RETIC, SCAN CBC, FE and TIBC, LDH #### [facility] [address] [place] [address] [place] Platelets [#/volume] in Bloo d by Automated countOrdered By: Bertha Cuevas on 03-05-2024 Platelets (Bld) [#/Vol] 78 10*3/uL Low 150-450 [facility] Comment on above: Order Comment: STAT FOR BX Performed By: #### H BSAB, HCV RX PCR, CAMILA, CU, PLT AB S, SPE, RA, HBSAG, HIV SCREEN, KAPPA, SADIE, HBCAB, SKIP SERUM #### [facility] , #### CYTOGENE, T4F, [id number], FISH NOT BLAD, MARÍA, TSH3, FLOW NEOGENOMIC, CMP, RETIC, SCAN CBC, FE and TIBC, LDH #### [facility] [address] [place] [id number] [place] Potassium [Moles/volume] in Serum or PlasmaOrdered By: Trung Armenta on 03-05-2024 Potassium [Moles/Vol] 4.2 mmol/L Normal 3.5-5.1 [facility] Comment on above: Performed By: #### H BSAB, HCV RX PCR, CAMILA, CU, PLT AB S, SPE, RA, HBSAG, HIV SCREEN, KAPPA, SADIE, HBCAB, SKIP SERUM #### [facility] , #### CYTOGENE, T4F, [id number], FISH NOT BLAD, MARÍA, TSH3, FLOW NEOGENOMIC, CMP, RETIC, SCAN CBC, FE and TIBC, LDH #### [facility] [address] [place] [id number] [facility] Potassium [Moles/volume] in Serum or PlasmaOrdered By: Bertha Cuevas on 03-05-2024 Potassium [Moles/Vol] 4.5 mmol/L Normal 3.5-5.1 [facility] Comment on above: Hemolysis is present at a level that could interfere with the result.Contact lab if redraw is required Result Comment: Hemo lysis is present at a level that could interfere with the result. Contact lab if redraw is required Performed By: #### C MP ####[facility] Protein [Mass/volume] in Ser um or PlasmaOrdered By: Bertha Cuevas on 03-05-2024 Protein [Mass/Vol] 9.3 g/dL High 6.4-8.9 [facility] Comment on above: Performed By: #### C MP ####[place] [id number] Prothrombin time (PT)Ordered By: Trung Armenta on 03-05-2024 PT Coag (PPP) [Time] 15.0 s High 9.0-12.9 [facility] Comment on above: A hematocrit value g reater than 55% may lead to inaccurate results in coagulation testing. Patients having hematocrit values >55% require a special collection tube for coagulation studies. Please contact the laboratory at [phone] for redraw instructions. Result Comment: A he matocrit value greater than 55% may lead to inaccurate results in coagulation testing. Patients having hematocrit values >55% require a special collection tube for coagulation studies. Please contact the laboratory at [phone] for redraw instructions. Performed By: #### H BSAB, HCV RX PCR, CAMILA, CU, PLT AB S, SPE, RA, HBSAG, HIV SCREEN, KAPPA, SADIE, HBCAB, SKIP SERUM #### [facility] , #### CYTOGENE, T4F, [id number], FISH NOT BLAD, MARÍA, TSH3, FLOW NEOGENOMIC, CMP, RETIC, SCAN CBC, FE and TIBC, LDH #### [facility] [address] RBC morphologyOrdered By: Emeka Armenta on 03-05-2024 RBC morphology finding Nom (Bld) N/A [facility] Serum globulin measurement b y calculation (mass/volume)Ordered By: Bertha Pearce on 03-05-2024 Globulin (S) [Mass/Vol] 6.2 g/dL Normal [facility] Comment on above: Performed By: #### C MP ####[facility] Serum or plasma albumin/glob ulin mass ratioOrdered By: Bertha Cuevas on 03-05-2024 Albumin/Globulin [Mass ratio] 0.5 {ratio} Normal [facility] Comment on above: Performed By: #### C MP ####[address] Serum or plasma anion gap de terminationOrdered By: Trung Armenta on 03-05-2024 Anion gap [Moles/Vol] 16.2 mmol/L High 6.0-15.0 [facility] Comment on above: Performed By: #### H BSAB, HCV RX PCR, CAMILA, CU, PLT AB S, SPE, RA, HBSAG, HIV SCREEN, KAPPA, SADIE, HBCAB, SKIP SERUM #### [facility] , #### CYTOGENE, T4F, [id number], FISH NOT BLAD, MARÍA, TSH3, FLOW NEOGENOMIC, CMP, RETIC, SCAN CBC, FE and TIBC, LDH #### [facility] [address] Serum or plasma anion gap de terminationOrdered By: Bertha Cuevas on 03-05-2024 Anion gap [Moles/Vol] 19.8 mmol/L High 6.0-15.0 [facility] Comment on above: Performed By: #### C MP ####[address] Sodium [Moles/volume] in Ser um or PlasmaOrdered By: Trung Armenta on 03-05-2024 Sodium [Moles/Vol] 139 mmol/L Normal 136-145 [facility] Comment on above: Performed By: #### H BSAB, HCV RX PCR, CAMILA, CU, PLT AB S, SPE, RA, HBSAG, HIV SCREEN, KAPPA, SADIE, HBCAB, SKIP SERUM #### [facility] , #### CYTOGENE, T4F, [id number], FISH NOT BLAD, MARÍA, TSH3, FLOW NEOGENOMIC, CMP, RETIC, SCAN CBC, FE and TIBC, LDH #### [facility] [address] Sodium [Moles/volume] in Ser um or PlasmaOrdered By: Bertha Cuevas on 03-05-2024 Sodium [Moles/Vol] 138 mmol/L Normal 136-145 [facility] Comment on above: Performed By: #### C MP ####[facility] [id number] [place] [address] Specific gravity Auto test s trip (U) [Rel density]Ordered By: Trung Armenta on 03-05-2024 Specific gravity (U) [Rel density] 1.018 1.001-1.03 0 [facility] Stool Occult Bl. Scr. (Guaia c)on 03-05-2024 Stool Occult Bl. Scr. (Guaiac) Occult Blood Negative for Occult Blood by Guaiac Methodology Reference range = Negative PERFORMED BY: [place] [address] PATHOLOGIST CRYOGENICS REPAIRER OTTO HARLEY M.D. Normal [facility] Comment on above: Performed By: #### H BSAB, HCV RX PCR, CAMILA, CU, PLT AB S, SPE, RA, HBSAG, HIV SCREEN, KAPPA, SADIE, HBCAB, SKIP SERUM #### [facility] , #### CYTOGENE, T4F, [id number], FISH NOT BLAD, MARÍA, TSH3, FLOW NEOGENOMIC, CMP, RETIC, SCAN CBC, FE and TIBC, LDH #### [facility] [address] Troponin I High Sensitivityo n 03-05-2024 Troponin I High Sensitivity 22.3 pg/mL High 0.0-20.0 [facility] Comment on above: Result Comment: PERF ORMED BY: [place] [address] PATHOLOGIST CRYOGENICS REPAIRER OTTO HARLEY M.D. Performed By: #### H BSAB, HCV RX PCR, CAMILA, CU, PLT AB S, SPE, RA, HBSAG, HIV SCREEN, KAPPA, SADIE, HBCAB, SKIP SERUM #### [facility] , #### CYTOGENE, T4F, [id number], FISH NOT BLAD, MARÍA, TSH3, FLOW NEOGENOMIC, CMP, RETIC, SCAN CBC, FE and TIBC, LDH #### [facility] [address] [place] [address] Troponin I.cardiac [Mass/vol ume] in Serum or Plasma by Detection limit <= 0.01 ng/Ordered By: Trung Armenta on 03-05-2024 Troponin I.cardiac DL <= 0.01 ng/mL [Mass/Vol] 22.3 pg/mL High 0.0-20.0 [facility] Type and Screenon 03-05-2024 ABO and Rh group Nom (Bld) Blood group A Rh(D) positive Normal [facility] Comment on above: Order Comment: Trans fuse now? Y Number of units to transfuse now? 2 Result Comment: PERF ORMED BY: [place] [address] PATHOLOGIST CRYOGENICS REPAIRER OTTO HARLEY M.D. Urea nitrogen [Mass/volume] in Serum or PlasmaOrdered By: Trung Armenta on 03-05-2024 Urea nitrogen [Mass/Vol] 42 mg/dL High 7-25 [facility] Comment on above: Performed By: #### H BSAB, HCV RX PCR, CAMILA, CU, PLT AB S, SPE, RA, HBSAG, HIV SCREEN, KAPPA, SADIE, HBCAB, SKIP SERUM #### [facility] , #### CYTOGENE, T4F, [id number], FISH NOT BLAD, MARÍA, TSH3, FLOW NEOGENOMIC, CMP, RETIC, SCAN CBC, FE and TIBC, LDH #### [facility] [address] [place] [id number] [place] Urea nitrogen [Mass/volume] in Serum or PlasmaOrdered By: Bertha Cuevas on 03-05-2024 Urea nitrogen [Mass/Vol] 41 mg/dL High 7-25 [facility] Comment on above: Performed By: #### C MP ####[facility] [id number] Urine clarity by refractomet ry automatedOrdered By: Trung Armenta on 03-05-2024 Clarity Refractometry automated (U) Clear Clear [facility] Urine glucose measurement by automated test strip (mass/volume)Ordered By: Trung Armenta on 03-05-2024 Glucose Auto test strip (U) [Mass/Vol] Normal mg/dL Normal [facility] Urine hemoglobin detection b y automated test stripOrdered By: Trung Armenta on 03-05-2024 Hemoglobin Auto test strip Ql (U) Negative Negative [facility] Urine leukocyte esterase det ection by automated test stripOrdered By: Trung Armenta on 03-05-2024 Leukocyte esterase Auto test strip Ql (U) Negative Negative [facility] Urine pH measurement by auto mated test stripOrdered By: Trung Armenta on 03-05-2024 pH (U) 5.5 [pH] Normal 5.0-9.0 [facility] Comment on above: Order Comment: Name Collection Type:: Clean-Voided Midstream Performed By: #### H BSAB, HCV RX PCR, CAMILA, CU, PLT AB S, SPE, RA, HBSAG, HIV SCREEN, KAPPA, SADIE, HBCAB, SKIP SERUM #### [facility] , #### CYTOGENE, T4F, [id number], FISH NOT BLAD, MARÍA, TSH3, FLOW NEOGENOMIC, CMP, RETIC, SCAN CBC, FE and TIBC, LDH #### [facility] [address] Urine protein measurement by automated test strip (mass/volume)Ordered By: Trung Armenta on 03-05-2024 Protein (U) [Mass/Vol] 30 mg/dL High Negative [facility] Comment on above: Order Comment: Name Collection Type:: Clean-Voided Midstream Performed By: #### H BSAB, HCV RX PCR, CAMILA, CU, PLT AB S, SPE, RA, HBSAG, HIV SCREEN, KAPPA, SADIE, HBCAB, SKIP SERUM #### [facility] , #### CYTOGENE, T4F, [id number], FISH NOT BLAD, MARÍA, TSH3, FLOW NEOGENOMIC, CMP, RETIC, SCAN CBC, FE and TIBC, LDH #### [address] Urobilinogen Auto test strip (U) [Mass/Vol]Ordered By: Trung Armenta on 03-05-2024 Urobilinogen (U) [Mass/Vol] Normal mg/dL Normal [facility] XR bone surveyon 03-05-2024 XR bone survey [facility] [place] [address] [place] [address] XRay Report Signed Patient: Neil Wilcox MR#: [id number] : 1945 Acct:[id number] Age/Sex: 78 / M ADM Date: 03/05/24 Loc: Room: [address] [place] [address] Type: ADM IN Attending Dr: Roslyn Townsend [...] Tobias Tracy M.D.03/05/2024 6:02 PM Dictation Location: [place] [address] Transcribed By: KYLEE 03/05/24 180 Dictated By: Tobias Tracy DO 03/05/24 1756 Signed By: 03/05/24 180 Normal [facility] XR chest 2V*on 03-05-2024 XR chest 2V* [facility] [place] [address] XRay Report Signed Patient: Neil Wilcox MR#: [id number] : 1945 Acct:[id number] Age/Sex: 78 / M ADM Date: 03/05/24 Loc: ER Room: Type: [facility] ER Attending Dr: Copies to: [...] Tobias Tracy M.D.03/05/2024 12:34 PM Dictation Location: [place] [address] Transcribed By: KYLEE 03/05/24 1234 Dictated By: Tobias Tracy DO 03/05/24 1230 Signed By: 03/05/24 1234 Normal [facility] CAMILA Antinuclear Antibodieson 02-26-2024 Antinuclear Abs, IFA Positive Critically abnormal . [facility] Comment on above: Result Comment: Nega tive <1:80 Borderline 1:80 Positive >1:80 Performed By: #### H BSAB, HCV RX PCR, CAMILA, CU, PLT AB S, SPE, RA, HBSAG, HIV SCREEN, KAPPA, SADIE, HBCAB, SKIP SERUM ####[facility] ,#### CYTOGENE, T4F, [id number], FISH NOT BLAD, MARÍA, TSH3, FLOW NEOGENOMIC, CMP, RETIC, SCAN CBC, FE and TIBC, LDH ####[facility] [id number] Homogeneous Pattern 1:320 High . [facility] Comment on above: Result Comment: ICAP nomenclature: [id number] Performed By: #### H BSAB, HCV RX PCR, CAIMLA, CU, PLT AB S, SPE, RA, HBSAG, HIV SCREEN, KAPPA, SADIE, HBCAB, SKIP SERUM ####[facility] ,#### CYTOGENE, T4F, [id number], FISH NOT BLAD, MARÍA, TSH3, FLOW NEOGENOMIC, CMP, RETIC, SCAN CBC, FE and TIBC, LDH ####[facility] Note 1 Normal . [facility] Comment on above: Result Comment: Yamel bah Potential Disease Association Homogeneous Systemic Lupus Erythematosus, Drug Induced Systemic Lupus Erythematosus, Chronic Autoimmune hepatitis, Juvenile Idiopathic Arthritis Speckled Sjogren Syndrome, Systemic Lupus Erythematosus, Subacute Cutaneous Lupus, Lupus, Congenital Heart Block, Mixed Connective Tissue Disease, Scleroderma-diffuse, Scleroderma-Autoimmune Myositis Overlap Syndrome, Systemic Lupus Qtgatqzfoctmj-Kogrqgdjlia-Dzdbmjjrwo Myositis Overlap Syndrome, Systemic Autoimmune Rheumatic Disease, [...] Linear Scleroderma, Antiphospholipid Syndrome Performed at: - [facility] [id number] Wellness Director: J Carlos Blackman PhD, Phone: [phone] Performed By: #### H BSAB, HCV RX PCR, CAMILA, CU, PLT AB S, SPE, RA, HBSAG, HIV SCREEN, KAPPA, SADIE, HBCAB, SKIP SERUM ####[facility] ,#### CYTOGENE, T4F, [id number], FISH NOT BLAD, MARÍA, TSH3, FLOW NEOGENOMIC, CMP, RETIC, SCAN CBC, FE and TIBC, LDH ####[facility] [id number] Absolute reticulocyte countO rdered By: Bertha Cuevas on 02-26-2024 Reticulocytes (Bld) [#/Vol] 0.002 10*6/uL Low 0.024-0.08 4 [facility] Alanine aminotransferase [En zymatic activity/volume] in Serum or PlasmaOrdered By: Bertha Cuevas on 02-26-2024 ALT [Catalytic activity/Vol] 10 U/L Normal 7-52 [facility] Comment on above: Performed By: #### H BSAB, HCV RX PCR, CAMILA, CU, PLT AB S, SPE, RA, HBSAG, HIV SCREEN, KAPPA, SADIE, HBCAB, SKIP SERUM #### [facility] , #### CYTOGENE, T4F, [id number], FISH NOT BLAD, MARÍA, TSH3, FLOW NEOGENOMIC, CMP, RETIC, SCAN CBC, FE and TIBC, LDH #### [facility] [address] [place] [address] [place] Albumin [Mass/volume] in Ser um or PlasmaOrdered By: Bertha Cuevas on 02-26-2024 Albumin [Mass/Vol] 3.4 g/dL Normal 2.9-4.4 [facility] Comment on above: Performed By: #### H BSAB, HCV RX PCR, CAMILA, CU, PLT AB S, SPE, RA, HBSAG, HIV SCREEN, KAPPA, SADIE, HBCAB, SKIP SERUM ####[facility] ,#### CYTOGENE, T4F, [id number], FISH NOT BLAD, MARÍA, TSH3, FLOW NEOGENOMIC, CMP, RETIC, SCAN CBC, FE and TIBC, LDH ####[facility] [id number] [place] [address] [place] Albumin [Mass/volume] in Ser um or Plasma by Bromocresol green (BCG) dye binding methoOrdered By: Bertha Cuevas on 02-26-2024 Albumin BCG dye [Mass/Vol] 3.5 g/dL 3.5-5.7 [facility] Alkaline phosphatase [Enzyma tic activity/volume] in Serum or PlasmaOrdered By: Bertha Cuevas on 02-26-2024 ALP [Catalytic activity/Vol] 71 U/L Normal 34-104 [facility] Comment on above: Performed By: #### H BSAB, HCV RX PCR, CAMILA, CU, PLT AB S, SPE, RA, HBSAG, HIV SCREEN, KAPPA, SADIE, HBCAB, SKIP SERUM #### [facility] , #### CYTOGENE, T4F, [id number], FISH NOT BLAD, MARÍA, TSH3, FLOW NEOGENOMIC, CMP, RETIC, SCAN CBC, FE and TIBC, LDH #### [facility] [address] Anisocytosis [Presence] in B lood by Light microscopyOrdered By: Bertha Cuevas on 02-26-2024 Anisocytosis Ql (Bld) Marked Normal [facility] Comment on above: Performed By: #### H BSAB, HCV RX PCR, CAMILA, CU, PLT AB S, SPE, RA, HBSAG, HIV SCREEN, KAPPA, SADIE, HBCAB, SKIP SERUM #### [facility] , #### CYTOGENE, T4F, [id number], FISH NOT BLAD, MARÍA, TSH3, FLOW NEOGENOMIC, CMP, RETIC, SCAN CBC, FE and TIBC, LDH #### [facility] [address] [place] [address] Aspartate aminotransferase [ Enzymatic activity/volume] in Serum or PlasmaOrdered By: Bertha Cuevas on 02-26-2024 AST [Catalytic activity/Vol] 12 U/L Low 13-39 [facility] Comment on above: Performed By: #### H BSAB, HCV RX PCR, CAMILA, CU, PLT AB S, SPE, RA, HBSAG, HIV SCREEN, KAPPA, SADIE, HBCAB, SKIP SERUM #### [facility] , #### CYTOGENE, T4F, [id number], FISH NOT BLAD, MARÍA, TSH3, FLOW NEOGENOMIC, CMP, RETIC, SCAN CBC, FE and TIBC, LDH #### [place] [address] [place] Automated basophil %Ordered By: Bertha Cuevas on 02-26-2024 Basophils/100 WBC (Bld) 0.2 % Normal . [facility] Comment on above: Performed By: #### H BSAB, HCV RX PCR, CAMILA, CU, PLT AB S, SPE, RA, HBSAG, HIV SCREEN, KAPPA, SADIE, HBCAB, SKIP SERUM #### [facility] , #### CYTOGENE, T4F, [id number], FISH NOT BLAD, MARÍA, TSH3, FLOW NEOGENOMIC, CMP, RETIC, SCAN CBC, FE and TIBC, LDH #### [address] Automated basophil countOrde red By: Bertha Cuevas on 02-26-2024 Basophils (Bld) [#/Vol] 0.0 10*3/uL Normal 0.0-0.2 [facility] Comment on above: Performed By: #### H BSAB, HCV RX PCR, CAMILA, CU, PLT AB S, SPE, RA, HBSAG, HIV SCREEN, KAPPA, SADIE, HBCAB, SKIP SERUM #### [facility] , #### CYTOGENE, T4F, [id number], FISH NOT BLAD, MARÍA, TSH3, FLOW NEOGENOMIC, CMP, RETIC, SCAN CBC, FE and TIBC, LDH #### [address] Automated blood monocyte cou ntOrdered By: Bertha Cuevas on 02-26-2024 Monocytes (Bld) [#/Vol] 0.0 10*3/uL Normal 0.0-0.8 [facility] Comment on above: Performed By: #### H BSAB, HCV RX PCR, CAMILA, CU, PLT AB S, SPE, RA, HBSAG, HIV SCREEN, KAPPA, SADIE, HBCAB, SKIP SERUM #### [facility] , #### CYTOGENE, T4F, [id number], FISH NOT BLAD, MARÍA, TSH3, FLOW NEOGENOMIC, CMP, RETIC, SCAN CBC, FE and TIBC, LDH #### [place] [address] [place] Automated eosinophil %Ordere d By: Bertha Cuevas on 02-26-2024 Eosinophils/100 WBC (Bld) 10.5 % Normal . [facility] Comment on above: Performed By: #### H BSAB, HCV RX PCR, CAMILA, CU, PLT AB S, SPE, RA, HBSAG, HIV SCREEN, KAPPA, SADIE, HBCAB, SKIP SERUM #### [facility] , #### CYTOGENE, T4F, [id number], FISH NOT BLAD, MARÍA, TSH3, FLOW NEOGENOMIC, CMP, RETIC, SCAN CBC, FE and TIBC, LDH #### [facility] [address] Automated eosinophil countOr dered By: Bertha Cuevas on 02-26-2024 Eosinophils (Bld) [#/Vol] 0.3 10*3/uL Normal 0.0-0.45 [facility] Comment on above: Performed By: #### H BSAB, HCV RX PCR, CAMILA, CU, PLT AB S, SPE, RA, HBSAG, HIV SCREEN, KAPPA, SADIE, HBCAB, SKIP SERUM #### [facility] , #### CYTOGENE, T4F, [id number], FISH NOT BLAD, MARÍA, TSH3, FLOW NEOGENOMIC, CMP, RETIC, SCAN CBC, FE and TIBC, LDH #### [facility] [address] Automated monocyte %Ordered By: Bertha Cuevas on 02-26-2024 Monocytes/100 WBC (Bld) 1.4 % Normal . [facility] Comment on above: Performed By: #### H BSAB, HCV RX PCR, CAMILA, CU, PLT AB S, SPE, RA, HBSAG, HIV SCREEN, KAPPA, SADIE, HBCAB, SKIP SERUM #### [facility] , #### CYTOGENE, T4F, [id number], FISH NOT BLAD, MARÍA, TSH3, FLOW NEOGENOMIC, CMP, RETIC, SCAN CBC, FE and TIBC, LDH #### [facility] [address] Automated neutrophil %Ordere d By: Bertha Lockhartjaime on 02-26-2024 Neutrophils/100 WBC (Bld) 44.9 % Normal . [facility] Comment on above: Performed By: #### H BSAB, HCV RX PCR, CAMILA, CU, PLT AB S, SPE, RA, HBSAG, HIV SCREEN, KAPPA, SADIE, HBCAB, SKIP SERUM #### [facility] , #### CYTOGENE, T4F, [id number], FISH NOT BLAD, MARÍA, TSH3, FLOW NEOGENOMIC, CMP, RETIC, SCAN CBC, FE and TIBC, LDH #### [facility] [address] Basophil percentageOrdered B y: Bertha Kleinlara on 02-26-2024 Basophil percentage 109 ug/dL 69-132 [facility] Comment on above: This test was develo ped and its performance characteristicsdetermined by [facility]. It has not been cleared orapproved by the Food and Drug Administration. Detection Limit = 5Performed at: [facility] [address] [id number] Director: Mary Jane Maya MD, Phone: [phone] Bilirubin.total [Mass/volume ] in Serum or PlasmaOrdered By: Endyartem Cuevas on 02-26-2024 Bilirubin [Mass/Vol] 0.8 mg/dL Normal 0.3-1.0 [facility] Comment on above: Performed By: #### H BSAB, HCV RX PCR, CAMILA, CU, PLT AB S, SPE, RA, HBSAG, HIV SCREEN, KAPPA, SADIE, HBCAB, SKIP SERUM #### [facility] , #### CYTOGENE, T4F, [id number], FISH NOT BLAD, MARÍA, TSH3, FLOW NEOGENOMIC, CMP, RETIC, SCAN CBC, FE and TIBC, LDH #### [address] Blood platelet glycoprotein Ib/IX IgG antibody detection by immunoassayOrdered By: Endyartem Cuevas on 02-26-2024 Platelet glycoprotein Ib/Ix IgG IA Ql (Bld) Negative Negative [facility] Calcium [Mass/volume] in Ser um or PlasmaOrdered By: Betrha Lockhartjaime on 02-26-2024 Calcium [Mass/Vol] 12.1 mg/dL High 8.6-10.3 [facility] Comment on above: Performed By: #### H BSAB, HCV RX PCR, CAMILA, CU, PLT AB S, SPE, RA, HBSAG, HIV SCREEN, KAPPA, SADIE, HBCAB, SKIP SERUM #### [facility] , #### CYTOGENE, T4F, [id number], FISH NOT BLAD, MARÍA, TSH3, FLOW NEOGENOMIC, CMP, RETIC, SCAN CBC, FE and TIBC, LDH #### [facility] [address] Carbon dioxide, total [Moles /volume] in Serum or PlasmaOrdered By: Bertha Pearce on 02-26-2024 CO2 [Moles/Vol] 25.2 mmol/L Normal 21.0-31.0 [facility] Comment on above: Performed By: #### H BSAB, HCV RX PCR, CAMILA, CU, PLT AB S, SPE, RA, HBSAG, HIV SCREEN, KAPPA, SADIE, HBCAB, SKIP SERUM #### [facility] , #### CYTOGENE, T4F, [id number], FISH NOT BLAD, MARÍA, TSH3, FLOW NEOGENOMIC, CMP, RETIC, SCAN CBC, FE and TIBC, LDH #### [facility] [address] [place] [address] [place] Chloride [Moles/volume] in S dustin or PlasmaOrdered By: Bertha Cuevas on 02-26-2024 Chloride [Moles/Vol] 104 mmol/L Normal 98-107 [facility] Comment on above: Performed By: #### H BSAB, HCV RX PCR, CAMILA, CU, PLT AB S, SPE, RA, HBSAG, HIV SCREEN, KAPPA, SADIE, HBCAB, SKIP SERUM #### [facility] , #### CYTOGENE, T4F, [id number], FISH NOT BLAD, MARÍA, TSH3, FLOW NEOGENOMIC, CMP, RETIC, SCAN CBC, FE and TIBC, LDH #### [address] Comprehensive Metabolic Pane melvin 02-26-2024 Albumin [Mass/Vol] 3.5 g/dL Normal 3.5-5.7 [facility] Comment on above: Performed By: #### H BSAB, HCV RX PCR, CAMILA, CU, PLT AB S, SPE, RA, HBSAG, HIV SCREEN, KAPPA, SADIE, HBCAB, SKIP SERUM #### [facility] , #### CYTOGENE, T4F, [id number], FISH NOT BLAD, MARÍA, TSH3, FLOW NEOGENOMIC, CMP, RETIC, SCAN CBC, FE and TIBC, LDH #### [address] Creatinine Clr Calc Pharmacy 43.64 Normal [facility] Comment on above: Performed By: #### H BSAB, HCV RX PCR, CAMILA, CU, PLT AB S, SPE, RA, HBSAG, HIV SCREEN, KAPPA, SADIE, HBCAB, SKIP SERUM #### [facility] , #### CYTOGENE, T4F, [id number], FISH NOT BLAD, MARÍA, TSH3, FLOW NEOGENOMIC, CMP, RETIC, SCAN CBC, FE and TIBC, LDH #### [address] GFR/1.73 sq M.predicted MDRD (S/P/Bld) [Vol rate/Area] 50.358 mL/min/{1.73_m2} Normal [facility] Comment on above: Performed By: #### H BSAB, HCV RX PCR, CAMILA, CU, PLT AB S, SPE, RA, HBSAG, HIV SCREEN, KAPPA, SADIE, HBCAB, SKIP SERUM #### [facility] , #### CYTOGENE, T4F, [id number], FISH NOT BLAD, MARÍA, TSH3, FLOW NEOGENOMIC, CMP, RETIC, SCAN CBC, FE and TIBC, LDH #### [facility] [address] [place] [id number] [facility] Copperon 02-26-2024 Copper 109 ug/dL Normal 69-132 [facility] Comment on above: Result Comment: This test was developed and its performance characteristics determined by [facility]. It has not been cleared or approved by the Food and Drug Administration. Detection Limit = 5 Performed at: [address] [id number] Wellness Director: Mary Jane Maya MD, Phone: [phone] Performed By: #### H BSAB, HCV RX PCR, CAMILA, CU, PLT AB S, SPE, RA, HBSAG, HIV SCREEN, KAPPA, SADIE, HBCAB, SKIP SERUM ####[facility] ,#### CYTOGENE, T4F, [id number], FISH NOT BLAD, MARÍA, TSH3, FLOW NEOGENOMIC, CMP, RETIC, SCAN CBC, FE and TIBC, LDH ####[facility] [id number] [place] [id number] [facility] Creatinine [Mass/volume] in Serum or PlasmaOrdered By: Bertha Cuevas on 02-26-2024 Creatinine [Mass/Vol] 1.44 mg/dL High 0.70-1.30 [facility] Comment on above: Performed By: #### H BSAB, HCV RX PCR, CAMILA, CU, PLT AB S, SPE, RA, HBSAG, HIV SCREEN, KAPPA, SADIE, HBCAB, SKIP SERUM #### [facility] , #### CYTOGENE, T4F, [id number], FISH NOT BLAD, MARÍA, TSH3, FLOW NEOGENOMIC, CMP, RETIC, SCAN CBC, FE and TIBC, LDH #### [facility] [address] [place] [id number] [facility] [employer] Normal [facility] Comment on above: Result Comment: See report. Scanned copy available in EMR. Performed By: #### H BSAB, HCV RX PCR, CAMILA, CU, PLT AB S, SPE, RA, HBSAG, HIV SCREEN, KAPPA, SADIE, HBCAB, SKIP SERUM ####[facility] ,#### CYTOGENE, T4F, [id number], FISH NOT BLAD, MARÍA, TSH3, FLOW NEOGENOMIC, CMP, RETIC, SCAN CBC, FE and TIBC, LDH ####[facility] [id number] Erythrocyte distribution wid th [Ratio] by Automated countOrdered By: Bertha Pearce on 02-26-2024 Erythrocyte distribution width (RBC) [Ratio] 20.0 % High 12.0-14.8 [facility] Comment on above: Performed By: #### H BSAB, HCV RX PCR, CAMILA, CU, PLT AB S, SPE, RA, HBSAG, HIV SCREEN, KAPPA, SADIE, HBCAB, SKIP SERUM #### [facility] , #### CYTOGENE, T4F, [id number], FISH NOT BLAD, MARÍA, TSH3, FLOW NEOGENOMIC, CMP, RETIC, SCAN CBC, FE and TIBC, LDH #### [facility] [address] [place] [address] [place] Erythrocytes [#/volume] in B lood by Automated countOrdered By: Bertha Cuevas on 02-26-2024 RBC (Bld) [#/Vol] 2.60 10*6/uL Low 3.90-5.60 [facility] Comment on above: Performed By: #### H BSAB, HCV RX PCR, CAMILA, CU, PLT AB S, SPE, RA, HBSAG, HIV SCREEN, KAPPA, SADIE, HBCAB, SKIP SERUM #### [facility] , #### CYTOGENE, T4F, [id number], FISH NOT BLAD, MARÍA, TSH3, FLOW NEOGENOMIC, CMP, RETIC, SCAN CBC, FE and TIBC, LDH #### [facility] [address] [place] [address] [place] Ferritin [Mass/volume] in Se rum or PlasmaOrdered By: Bertha Cuevas on 02-26-2024 Ferritin [Mass/Vol] 720.3 ng/mL High 23.9-336.2 [facility] Comment on above: Performed By: #### H BSAB, HCV RX PCR, CAMILA, CU, PLT AB S, SPE, RA, HBSAG, HIV SCREEN, KAPPA, SADIE, HBCAB, SKIP SERUM #### [facility] , #### CYTOGENE, T4F, [id number], FISH NOT BLAD, MARÍA, TSH3, FLOW NEOGENOMIC, CMP, RETIC, SCAN CBC, FE and TIBC, LDH #### [facility] [address] Fish Not Bladder Neogenomico n 02-26-2024 Fish Not Bladder Neogenomic Normal [facility] Comment on above: Result Comment: See report. Scanned copy available in EMR. PERFORMED BY: [facility] [address] [place] [address] PATHOLOGIST CRYOGENICS REPAIRER OTTO HARLEY M.D. Performed By: #### H BSAB, HCV RX PCR, CAMILA, CU, PLT AB S, SPE, RA, HBSAG, HIV SCREEN, KAPPA, SADIE, HBCAB, SKIP SERUM ####[facility] ,#### CYTOGENE, T4F, [id number], FISH NOT BLAD, MARÍA, TSH3, FLOW NEOGENOMIC, CMP, RETIC, SCAN CBC, FE and TIBC, LDH ####[facility] [id number] Flowcytometry Neogenomicon 0 02-26-2024 Flowcytometry Neogenomic Normal [facility] Comment on above: Result Comment: See report. Scanned copy available in EMR.See report. Scanned copy available in EMR. --- 03/03/24 0759 --- Flow Neogenomic previously reported as: See report. Scanned copy available in EMR. Performed By: #### H BSAB, HCV RX PCR, CAMILA, CU, PLT AB S, SPE, RA, HBSAG, HIV SCREEN, KAPPA, SADIE, HBCAB, SKIP SERUM ####[facility] ,#### CYTOGENE, T4F, [id number], FISH NOT BLAD, MARÍA, TSH3, FLOW NEOGENOMIC, CMP, RETIC, SCAN CBC, FE and TIBC, LDH ####[place] [address] Folate [Mass/volume] in Seru m or PlasmaOrdered By: Bertha Cuevas on 02-26-2024 Folate [Mass/Vol] ng/mL >5.9 [facility] Comment on above: Folate reference ran ge: >5.9 ng/mlThe WHO technical consultation on folate and vitamin [id number] has determined that folate concentrations lessthan 4 ng/ml are considered deficient. Free K+L LT Chains, Qn, Son 02-26-2024 Free Booker Light Chains, S 1354.4 mg/L High 3.3-19.4 [facility] Comment on above: Performed By: #### H BSAB, HCV RX PCR, CAMILA, CU, PLT AB S, SPE, RA, HBSAG, HIV SCREEN, KAPPA, SADIE, HBCAB, SKIP SERUM ####[facility] ,#### CYTOGENE, T4F, [id number], FISH NOT BLAD, MARÍA, TSH3, FLOW NEOGENOMIC, CMP, RETIC, SCAN CBC, FE and TIBC, LDH ####[facility] Free Lambda Light Chains, S 10.1 mg/L Normal 5.7-26.3 [facility] Comment on above: Performed By: #### H BSAB, HCV RX PCR, CAMILA, CU, PLT AB S, SPE, RA, HBSAG, HIV SCREEN, KAPPA, SADIE, HBCAB, SKIP SERUM ####[facility] ,#### CYTOGENE, T4F, [id number], FISH NOT BLAD, MARÍA, TSH3, FLOW NEOGENOMIC, CMP, RETIC, SCAN CBC, FE and TIBC, LDH ####[facility] [place] [id number] [facility] Booker/Lambda Ratio, S 134.10 High 0.26-1.65 [facility] Comment on above: Result Comment: Perf ormed at: CB - [facility] [address] [id number] Wellness Director: J Carlos Blackman PhD, Phone: [phone] PERFORMED BY: [place] [address] PATHOLOGIST CRYOGENICS REPAIRER OTTO HARLEY M.D. Performed By: #### H BSAB, HCV RX PCR, CAMILA, CU, PLT AB S, SPE, RA, HBSAG, HIV SCREEN, KAPPA, SADIE, HBCAB, SKIP SERUM ####[facility] ,#### CYTOGENE, T4F, [id number], FISH NOT BLAD, MARÍA, TSH3, FLOW NEOGENOMIC, CMP, RETIC, SCAN CBC, FE and TIBC, LDH ####[facility] [id number] Glucose [Mass/volume] in Ser um or PlasmaOrdered By: Bertha Cuevas on 02-26-2024 Glucose [Mass/Vol] 104 mg/dL High 70-100 [facility] Comment on above: ADA recommended refe rence rangeRandom Glucose Reference Range is dependent on time and content of last meal. Glucose of more than 200 mg/dL in a nonstressed, ambulatory subject supports the diagnosis of Diabetes Mellitus. Result Comment: [place] om Glucose Reference Range is dependent on time and content of last meal. Glucose of more than 200 mg/dL in a nonstressed, ambulatory subject supports the diagnosis of Diabetes Mellitus. ADA recommended reference range Performed By: #### H BSAB, HCV RX PCR, CAMILA, CU, PLT AB S, SPE, RA, HBSAG, HIV SCREEN, KAPPA, SADIE, HBCAB, SKIP SERUM #### [facility] , #### CYTOGENE, T4F, [id number], FISH NOT BLAD, MARÍA, TSH3, FLOW NEOGENOMIC, CMP, RETIC, SCAN CBC, FE and TIBC, LDH #### [facility] [address] HIV 1/O/2 Antigen/Antibodyon 02-26-2024 HIV Screen 4th Generation Non-Reactive Normal Non Reactive [facility] Comment on above: Result Comment: HIV Negative HIV-1/HIV-2 antibodies and HIV-1 p24 antigen were NOT detected. There is no laboratory evidence of HIV infection. Performed at: [address] [id number] Wellness Director: J Carlos Blackman PhD, Phone: [phone] Performed By: #### H BSAB, HCV RX PCR, CAMILA, CU, PLT AB S, SPE, RA, HBSAG, HIV SCREEN, KAPPA, SADIE, HBCAB, SKIP SERUM ####[facility] ,#### CYTOGENE, T4F, [id number], FISH NOT BLAD, MARÍA, TSH3, FLOW NEOGENOMIC, CMP, RETIC, SCAN CBC, FE and TIBC, LDH ####[facility] HIV 1 and HIV-2 antibody ass ay with HIV-1 p24 antigen detectionOrdered By: Bertha Cuevas on 02-26-2024 HIV 1+2 Ab+HIV1 p24 Ag IA Ql Non-Reactive Non Reactive [facility] Comment on above: HIV NegativeHIV-1/HI V-2 antibodies and HIV-1 p24 antigen were NOTdetected. There is no laboratory evidence of HIV infection.Performed at: [address] [id number] Director: J Carlos Blackman PhD, Phone: [phone] Hematocrit [Volume Fraction] of Blood by Automated countOrdered By: Bertha Pearce on 02-26-2024 Hematocrit (Bld) [Volume fraction] 27.0 % Low 38.8-50.0 [facility] Comment on above: Performed By: #### H BSAB, HCV RX PCR, CAMILA, CU, PLT AB S, SPE, RA, HBSAG, HIV SCREEN, KAPPA, SADIE, HBCAB, SKIP SERUM #### [facility] , #### CYTOGENE, T4F, [id number], FISH NOT BLAD, MARÍA, TSH3, FLOW NEOGENOMIC, CMP, RETIC, SCAN CBC, FE and TIBC, LDH #### [facility] [address] Hemoglobin [Mass/volume] in BloodOrdered By: Bertha HardikChrisPortia on 02-26-2024 Hemoglobin (Bld) [Mass/Vol] 9.3 g/dL Low 13.0-17.0 [facility] Comment on above: Performed By: #### H BSAB, HCV RX PCR, CAMILA, CU, PLT AB S, SPE, RA, HBSAG, HIV SCREEN, KAPPA, SADIE, HBCAB, SKIP SERUM #### [facility] , #### CYTOGENE, T4F, [id number], FISH NOT BLAD, MARÍA, TSH3, FLOW NEOGENOMIC, CMP, RETIC, SCAN CBC, FE and TIBC, LDH #### [facility] [address] Hep C Ab wRfx to Qnt PCRon 0 02-26-2024 Hepatitis C Virus Antibody Non-Reactive Normal Non Reactive [facility] Comment on above: Performed By: #### H BSAB, HCV RX PCR, CAMILA, CU, PLT AB S, SPE, RA, HBSAG, HIV SCREEN, KAPPA, SADIE, HBCAB, SKIP SERUM ####[facility] ,#### CYTOGENE, T4F, [id number], FISH NOT BLAD, MARÍA, TSH3, FLOW NEOGENOMIC, CMP, RETIC, SCAN CBC, FE and TIBC, LDH ####[facility] Interpretation Hepatitis C Normal . [facility] Comment on above: Result Comment: Not infected with HCV unless early or acute infection is suspected (which may be delayed in an immunocompromised individual), or other evidence exists to indicate HCV infection. Performed By: #### H BSAB, HCV RX PCR, CAMILA, CU, PLT AB S, SPE, RA, HBSAG, HIV SCREEN, KAPPA, SADIE, HBCAB, SKIP SERUM ####[facility] ,#### CYTOGENE, T4F, [id number], FISH NOT BLAD, MARÍA, TSH3, FLOW NEOGENOMIC, CMP, RETIC, SCAN CBC, FE and TIBC, LDH ####[place] [address] [place] [id number] [facility] Hepatitis B Core Antibodyon 02-26-2024 Hepatitis B Core Antibody Positive Critically abnormal Negative [facility] Comment on above: Result Comment: Perf ormed at: - [facility] [place] [id number] [place], [place] [id number] Wellness Director: J Carlos Blackman PhD, Phone: [phone] Performed By: #### H BSAB, HCV RX PCR, CAMILA, CU, PLT AB S, SPE, RA, HBSAG, HIV SCREEN, KAPPA, SADIE, HBCAB, SKIP SERUM ####[facility] ,#### CYTOGENE, T4F, [id number], FISH NOT BLAD, MARÍA, TSH3, FLOW NEOGENOMIC, CMP, RETIC, SCAN CBC, FE and TIBC, LDH ####[address] Hepatitis B Surface Antibody on 02-26-2024 Hepatitis B Surface Antibody Reactive Normal . [facility] Comment on above: Result Comment: Non Reactive: Inconsistent with immunity, less than 10 mIU/mL Reactive: Consistent with immunity, greater than 9.9 mIU/mL Performed By: #### H BSAB, HCV RX PCR, CAMILA, CU, PLT AB S, SPE, RA, HBSAG, HIV SCREEN, KAPPA, SADIE, HBCAB, SKIP SERUM ####[facility] ,#### CYTOGENE, T4F, [id number], FISH NOT BLAD, MARÍA, TSH3, FLOW NEOGENOMIC, CMP, RETIC, SCAN CBC, FE and TIBC, LDH ####[address] Hepatitis B Surface Antigeno n 02-26-2024 HBsAg Screen Negative Normal Negative [facility] Comment on above: Result Comment: PERF ORMED BY: [facility] [address] [facility] [place] [address] PATHOLOGIST CRYOGENICS REPAIRER OTTO HARLEY M.D. Performed By: #### H BSAB, HCV RX PCR, CAMILA, CU, PLT AB S, SPE, RA, HBSAG, HIV SCREEN, KAPPA, SADIE, HBCAB, SKIP SERUM ####[facility] ,#### CYTOGENE, T4F, [id number], FISH NOT BLAD, MARÍA, TSH3, FLOW NEOGENOMIC, CMP, RETIC, SCAN CBC, FE and TIBC, LDH ####[facility] [id number] Hepatitis B virus surface Ab [Presence] in SerumOrdered By: Bertha Cuevas on 02-26-2024 HBV surface Ab Ql (S) Reactive . [facility] Comment on above: Non Reactive: Incons istent with immunity, less than 10 mIU/mL Reactive: Consistent with immunity, greater than 9.9 mIU/mL Hepatitis B virus surface Ag [Presence] in Serum or Plasma by ImmunoassayOrdered By: Bertha Cuevas on 02-26-2024 HBV surface Ag IA Ql Negative Negative [facility] Hepatitis C virus IgG Ab [Pr esence] in Serum or Plasma by ImmunoassayOrdered By: Bertha Cuevas on 02-26-2024 HCV IgG IA Ql Non-Reactive Non Reactive [facility] IgA [Mass/volume] in Serum o r PlasmaOrdered By: Bertha Cuevas on 02-26-2024 IgA [Mass/Vol] 3828 mg/dL High 61-437 [facility] Comment on above: Results confirmed on dilution. IgG [Mass/volume] in Serum o r PlasmaOrdered By: Bertha Cuevas on 02-26-2024 IgG [Mass/Vol] 667 mg/dL 603-1613 [facility] IgM [Mass/volume] in Serum o r PlasmaOrdered By: Bertha Cuevas on 02-26-2024 IgM [Mass/Vol] 16 mg/dL 15-143 [facility] Comment on above: Result confirmed on concentration.Performed at: - [facility] [address] [id number] Director: J Carlos Blackman PhD, Phone: [phone] Immunofixation,Serumon 02-25 Immunofixation, Serum Abnormal . [facility] Comment on above: Result Comment: Immu nofixation shows IgA monoclonal protein with kappa light chain specificity. Performed By: #### H BSAB, HCV RX PCR, CAMILA, CU, PLT AB S, SPE, RA, HBSAG, HIV SCREEN, KAPPA, SADIE, HBCAB, SKIP SERUM ####[facility] ,#### CYTOGENE, T4F, [id number], FISH NOT BLAD, MARÍA, TSH3, FLOW NEOGENOMIC, CMP, RETIC, SCAN CBC, FE and TIBC, LDH ####[facility] [place] [address] [facility] Immunoglobulin A, Serum 3828 mg/dL High 61-437 [facility] Comment on above: Result Comment: Resu lts confirmed on dilution. Performed By: #### H BSAB, HCV RX PCR, CAMILA, CU, PLT AB S, SPE, RA, HBSAG, HIV SCREEN, KAPPA, SADIE, HBCAB, SKIP SERUM ####[facility] ,#### CYTOGENE, T4F, [id number], FISH NOT BLAD, MARÍA, TSH3, FLOW NEOGENOMIC, CMP, RETIC, SCAN CBC, FE and TIBC, LDH ####[address] [address] [place] Immunoglobulin G 667 mg/dL Normal 603-1613 [facility] Comment on above: Performed By: #### H BSAB, HCV RX PCR, CAMILA, CU, PLT AB S, SPE, RA, HBSAG, HIV SCREEN, KAPPA, SADIE, HBCAB, SKIP SERUM ####[facility] ,#### CYTOGENE, T4F, [id number], FISH NOT BLAD, MARÍA, TSH3, FLOW NEOGENOMIC, CMP, RETIC, SCAN CBC, FE and TIBC, LDH ####[place] [address] [place] [address] [place] Immunoglobulin M, Serum 16 mg/dL Normal 15-143 [facility] Comment on above: Result Comment: Resu lt confirmed on concentration. Performed at: [facility] [address] [id number] Wellness Director: J Carlos Blackman PhD, Phone: [phone] Performed By: #### H BSAB, HCV RX PCR, CAMILA, CU, PLT AB S, SPE, RA, HBSAG, HIV SCREEN, KAPPA, SADIE, HBCAB, SKIP SERUM ####[facility] ,#### CYTOGENE, T4F, [id number], FISH NOT BLAD, MARÍA, TSH3, FLOW NEOGENOMIC, CMP, RETIC, SCAN CBC, FE and TIBC, LDH ####[facility] [id number] Immunoglobulin light chains. kappa.free [Mass/volume] in SerumOrdered By: Bertha Cuevas on 02-26-2024 Immunoglobulin light chains.kappa.free (S) [Mass/Vol] 1354.4 mg/L High 3.3-19.4 [facility] Immunoglobulin light chains. kappa.free/Immunoglobulin light chains.lambda.free [MassOrdered By: Bertha Cuevas on 02-26-2024 Immunoglobulin light chains.kappa.free/Immu noglobulin light chains.lambda.free (S) [Mass ratio] 134.10 High 0.26-1.65 [facility] Comment on above: Performed at: [address] Director: J Carlos Blackman PhD, Phone: [phone] Immunoglobulin light chains. lambda.free [Mass/volume] in Serum or PlasmaOrdered By: Bertha Cuevas on 02-26-2024 Immunoglobulin light chains.lambda.free [Mass/Vol] 10.1 mg/L 5.7-26.3 [facility] Iron [Mass/volume] in Serum or PlasmaOrdered By: Bertha Cuevas on 02-26-2024 Iron [Mass/Vol] 139 ug/dL Normal 50-212 [facility] Comment on above: Performed By: #### H BSAB, HCV RX PCR, CAMILA, CU, PLT AB S, SPE, RA, HBSAG, HIV SCREEN, KAPPA, SADIE, HBCAB, SKIP SERUM #### [facility] , #### CYTOGENE, T4F, [id number], FISH NOT BLAD, MARÍA, TSH3, FLOW NEOGENOMIC, CMP, RETIC, SCAN CBC, FE and TIBC, LDH #### [address] Iron and TIBC Profileon % Iron Saturation 64.1 % High 20-50 [facility] Comment on above: Performed By: #### H BSAB, HCV RX PCR, CAMILA, CU, PLT AB S, SPE, RA, HBSAG, HIV SCREEN, KAPPA, SADIE, HBCAB, SKIP SERUM #### [facility] , #### CYTOGENE, T4F, [id number], FISH NOT BLAD, MARÍA, TSH3, FLOW NEOGENOMIC, CMP, RETIC, SCAN CBC, FE and TIBC, LDH #### [address] Total Iron Binding Capacity 217 ug/dL Low 255-450 [facility] Comment on above: Performed By: #### H BSAB, HCV RX PCR, CAMILA, CU, PLT AB S, SPE, RA, HBSAG, HIV SCREEN, KAPPA, SADIE, HBCAB, SKIP SERUM #### [facility] , #### CYTOGENE, T4F, [id number], FISH NOT BLAD, MARÍA, TSH3, FLOW NEOGENOMIC, CMP, RETIC, SCAN CBC, FE and TIBC, LDH #### [address] Iron binding capacity [Mass/ volume] in Serum or PlasmaOrdered By: Bertha Cuevas on 02-26-2024 Iron binding capacity [Mass/Vol] 217 ug/dL Low 255-450 [facility] Iron saturation [Mass Fracti on] in Serum or PlasmaOrdered By: Bertha Cuevas on 02-26-2024 Iron saturation [Mass fraction] 64.1 % High 20-50 [facility] LDH Lactate Dehydrogenaseon 02-26-2024 LDH Lactate Dehydrogenase 118 U/L Low 140-271 [facility] Comment on above: Performed By: #### H BSAB, HCV RX PCR, CAMILA, CU, PLT AB S, SPE, RA, HBSAG, HIV SCREEN, KAPPA, SADIE, HBCAB, SKIP SERUM #### [facility] , #### CYTOGENE, T4F, [id number], FISH NOT BLAD, MARÍA, TSH3, FLOW NEOGENOMIC, CMP, RETIC, SCAN CBC, FE and TIBC, LDH #### [facility] [address] Laboratory - Chemistry and C hemistry - challengeOrdered By: Bertha Cuevas on 02-26-2024 Protein [Mass/Vol] 3.7 g/dL High Not Observed [facility] Lactate dehydrogenase [Enzym atic activity/volume] in Serum or Plasma by Lactate to pyOrdered By: Bertha Cuevas on 02-26-2024 LDH Lactate to pyruvate reaction [Catalytic activity/Vol] 118 U/L Low 140-271 [facility] Leukocytes [#/volume] correc myrtle for nucleated erythrocytes in Blood by Automated counOrdered By: Bertha Cuevas on 02-26-2024 WBC corrected for nucl RBC Auto (Bld) [#/Vol] 2.5 10*3/uL Low 4.1-10.5 [facility] Leukocytes [#/volume] in Blo od by Automated countOrdered By: Bertha Cuevas on 02-26-2024 WBC (Bld) [#/Vol] 2.5 10*3/uL Low 4.1-10.5 [facility] Comment on above: Performed By: #### H BSAB, HCV RX PCR, CAMILA, CU, PLT AB S, SPE, RA, HBSAG, HIV SCREEN, KAPPA, SADIE, HBCAB, SKIP SERUM #### [facility] , #### CYTOGENE, T4F, [id number], FISH NOT BLAD, MARÍA, TSH3, FLOW NEOGENOMIC, CMP, RETIC, SCAN CBC, FE and TIBC, LDH #### [facility] [address] Lymphocytes [#/volume] in Bl ood by Automated countOrdered By: Bertha Cuevas on 02-26-2024 Lymphocytes (Bld) [#/Vol] 1.1 10*3/uL Normal 1.00-4.8 [facility] Comment on above: Performed By: #### H BSAB, HCV RX PCR, CAMILA, CU, PLT AB S, SPE, RA, HBSAG, HIV SCREEN, KAPPA, SADIE, HBCAB, SKIP SERUM #### [facility] , #### CYTOGENE, T4F, [id number], FISH NOT BLAD, MARÍA, TSH3, FLOW NEOGENOMIC, CMP, RETIC, SCAN CBC, FE and TIBC, LDH #### [address] Lymphocytes/100 leukocytes i n Blood by Automated countOrdered By: Bertha Cuevas on 02-26-2024 Lymphocytes/100 WBC (Bld) 43.0 % Normal . [facility] Comment on above: Performed By: #### H BSAB, HCV RX PCR, CAMILA, CU, PLT AB S, SPE, RA, HBSAG, HIV SCREEN, KAPPA, SADIE, HBCAB, SKIP SERUM #### [facility] , #### CYTOGENE, T4F, [id number], FISH NOT BLAD, MARÍA, TSH3, FLOW NEOGENOMIC, CMP, RETIC, SCAN CBC, FE and TIBC, LDH #### [address] MCH [Entitic mass] by Automa myrtle countOrdered By: Bertha Cuevas on 02-26-2024 MCH (RBC) [Entitic mass] 35.7 pg High 27.5-35.2 [facility] Comment on above: Performed By: #### H BSAB, HCV RX PCR, CAMILA, CU, PLT AB S, SPE, RA, HBSAG, HIV SCREEN, KAPPA, SADIE, HBCAB, SKIP SERUM #### [facility] , #### CYTOGENE, T4F, [id number], FISH NOT BLAD, MARÍA, TSH3, FLOW NEOGENOMIC, CMP, RETIC, SCAN CBC, FE and TIBC, LDH #### [address] [place] [address] [place] MCHC Auto (RBC) [Mass/Vol]Or dered By: Bertha Cuevas on 02-26-2024 MCHC (RBC) [Mass/Vol] 34.4 g/dL 32.5-35.6 [facility] MCV [Entitic volume] by Auto mated countOrdered By: Bertha Cuevas on 02-26-2024 MCV (RBC) [Entitic vol] 103.8 fL High 83.5-101 [facility] Comment on above: Performed By: #### H BSAB, HCV RX PCR, CAMILA, CU, PLT AB S, SPE, RA, HBSAG, HIV SCREEN, KAPPA, SADIE, HBCAB, SKIP SERUM #### [facility] , #### CYTOGENE, T4F, [id number], FISH NOT BLAD, MARÍA, TSH3, FLOW NEOGENOMIC, CMP, RETIC, SCAN CBC, FE and TIBC, LDH #### [facility] [address] [place] [address] Macrocytes LM Ql (Bld)Ordere d By: Bertha Cuevas on 02-26-2024 Macrocytes Ql (Bld) Slight [facility] Neutrophils [#/volume] in Bl ood by Automated countOrdered By: Bertha Cuevas on 02-26-2024 Neutrophils (Bld) [#/Vol] 1.1 10*3/uL Low 1.8-7.7 [facility] Comment on above: Performed By: #### H BSAB, HCV RX PCR, CAMILA, CU, PLT AB S, SPE, RA, HBSAG, HIV SCREEN, KAPPA, SADIE, HBCAB, SKIP SERUM #### [facility] , #### CYTOGENE, T4F, [id number], FISH NOT BLAD, MARÍA, TSH3, FLOW NEOGENOMIC, CMP, RETIC, SCAN CBC, FE and TIBC, LDH #### [facility] [address] [place] [address] No Panel InformationOrdered By: Bertha Cuevas on 02-26-2024 Anti-Nuclear Antibody Comment 2 See comment . [facility] Comment on above: Pattern Potential Di sease Association Homogeneous Systemic Lupus Erythematosus, Drug Induced Systemic Lupus Erythematosus, Chronic Autoimmune hepatitis, Juvenile Idiopathic Arthritis Speckled Sjogren Syndrome, Systemic Lupus Erythematosus, Subacute Cutaneous Lupus, Lupus, Congenital Heart Block, Mixed Connective Tissue Disease, Scleroderma-diffuse, Scleroderma-Autoimmune Myositis Overlap Syndrome, Systemic Lupus Kzrtdmogkveal-Tvneskgvapx-Thmmwoakvg Myositis Overlap Syndrome, Systemic Autoimmune Rheumatic Disease, [...] Cytopenias, Linear Scleroderma, Antiphospholipid Syndrome Performed at: [facility] [place] [id number] Director: J Carlos Blackman PhD, Phone: [phone] Anti-Platelet Glycoprotein IV Negative Negative [facility] Comment on above: Performed at: [facility] [address] [id number] Director: Mary Jane Maya MD, Phone: [phone] Comment (FISH) See comment [facility] Comment on above: See report. Scanned copy available in EMR. Estimated GFR (CKD-EPI) 50.358 mL/Min [facility] Hepatitis B Core Total Antibody Positive Abnormal Negative [facility] Comment on above: Performed at: [facility] [address] [id number] Director: J Carlos Blackman PhD, Phone: [phone] Hepatitis C Interpretation See comment . [facility] Comment on above: Not infected with HC V unless early or acute infection issuspected (which may be delayed in an immunocompromisedindividual), or other evidence exists to indicate HCVinfection. Pharmacy Creatinine Clearance (Chem 43.64 [facility] Protein Electrophoresis Note See comment . [facility] Comment on above: Protein electrophore sis scan will follow via computer,mail, or accounting director delivery.Performed at: [facility] [address] [id number] Director: J Carlos Blackman PhD, Phone: [phone] Serum Immunofixation See comment Abnormal . [facility] Comment on above: Immunofixation shows IgA monoclonal protein with kappalight chain specificity. Nucleated erythrocytes [Pres ence] in Blood by Automated countOrdered By: Bertha Cuevas on 06-04-2024 Nucleated RBC Auto Ql (Bld) 0.2 /100{WBC} 0-0.5 [facility] Platelet Antibody, Serumon 0 02-26-2024 GLycoprotein IV Antibody Negative Normal Negative [facility] Comment on above: Result Comment: Perf ormed at: - [facility] [address] [id number] Wellness Director: Mary Jane Maya MD, Phone: [phone] Performed By: #### H BSAB, HCV RX PCR, CAMILA, CU, PLT AB S, SPE, RA, HBSAG, HIV SCREEN, KAPPA, SADIE, HBCAB, SKIP SERUM ####[facility] ,#### CYTOGENE, T4F, [id number], FISH NOT BLAD, MARÍA, TSH3, FLOW NEOGENOMIC, CMP, RETIC, SCAN CBC, FE and TIBC, LDH ####[place] [address] [address] Hla Class 1 Antibody Negative Normal Negative [facility] Comment on above: Performed By: #### H BSAB, HCV RX PCR, CAMILA, CU, PLT AB S, SPE, RA, HBSAG, HIV SCREEN, KAPPA, SADIE, HBCAB, SKIP SERUM ####[facility] ,#### CYTOGENE, T4F, [id number], FISH NOT BLAD, MARÍA, TSH3, FLOW NEOGENOMIC, CMP, RETIC, SCAN CBC, FE and TIBC, LDH ####[place] [address] Ia/IIa Antibodies Negative Normal Negative [facility] Comment on above: Performed By: #### H BSAB, HCV RX PCR, CAMILA, CU, PLT AB S, SPE, RA, HBSAG, HIV SCREEN, KAPPA, SADIE, HBCAB, SKIP SERUM ####[facility] ,#### CYTOGENE, T4F, [id number], FISH NOT BLAD, MARÍA, TSH3, FLOW NEOGENOMIC, CMP, RETIC, SCAN CBC, FE and TIBC, LDH ####[place] [address] Ib/IX Antibody Negative Normal Negative [facility] Comment on above: Performed By: #### H BSAB, HCV RX PCR, CAMILA, CU, PLT AB S, SPE, RA, HBSAG, HIV SCREEN, KAPPA, SADIE, HBCAB, SKIP SERUM ####[facility] ,#### CYTOGENE, T4F, [id number], FISH NOT BLAD, MARÍA, TSH3, FLOW NEOGENOMIC, CMP, RETIC, SCAN CBC, FE and TIBC, LDH ####[facility] IIb/IIIa Antibody Negative Normal Negative [facility] Comment on above: Performed By: #### H BSAB, HCV RX PCR, CAMILA, CU, PLT AB S, SPE, RA, HBSAG, HIV SCREEN, KAPPA, SADIE, HBCAB, SKIP SERUM ####[facility] ,#### CYTOGENE, T4F, [id number], FISH NOT BLAD, MARÍA, TSH3, FLOW NEOGENOMIC, CMP, RETIC, SCAN CBC, FE and TIBC, LDH ####[facility] Platelet adequacy [Presence] in Blood by Light microscopyOrdered By: Bertha Pearce on 02-26-2024 Platelets LM Ql (Bld) Decreased Normal [facility] Platelet mean volume [Entiti c volume] in Blood by Automated countOrdered By: Bertha Cuevas on 02-26-2024 Platelet mean volume (Bld) [Entitic vol] 7.0 fL Normal 6.6-10.1 [facility] Comment on above: Performed By: #### H BSAB, HCV RX PCR, CAMILA, CU, PLT AB S, SPE, RA, HBSAG, HIV SCREEN, KAPPA, SADIE, HBCAB, SKIP SERUM #### [facility] , #### CYTOGENE, T4F, [id number], FISH NOT BLAD, MARÍA, TSH3, FLOW NEOGENOMIC, CMP, RETIC, SCAN CBC, FE and TIBC, LDH #### [facility] [address] [place] [address] [place] Platelet morphology finding [Identifier] in BloodOrdered By: Bertha Kleinlara on 02-26-2024 Platelet morphology finding Nom (Bld) Normal Normal [facility] Platelets [#/volume] in Bloo d by Automated countOrdered By: Bertha Lockhartjaime on 02-26-2024 Platelets (Bld) [#/Vol] 83 10*3/uL Low 150-450 [facility] Comment on above: Performed By: #### H BSAB, HCV RX PCR, CAMILA, CU, PLT AB S, SPE, RA, HBSAG, HIV SCREEN, KAPPA, SADIE, HBCAB, SKIP SERUM #### [facility] , #### CYTOGENE, T4F, [id number], FISH NOT BLAD, MARÍA, TSH3, FLOW NEOGENOMIC, CMP, RETIC, SCAN CBC, FE and TIBC, LDH #### [facility] [address] Potassium [Moles/volume] in Serum or PlasmaOrdered By: Endyartem Ernielara on 02-26-2024 Potassium [Moles/Vol] 4.2 mmol/L Normal 3.5-5.1 [facility] Comment on above: Performed By: #### H BSAB, HCV RX PCR, CAMILA, CU, PLT AB S, SPE, RA, HBSAG, HIV SCREEN, KAPPA, SADIE, HBCAB, SKIP SERUM #### [facility] , #### CYTOGENE, T4F, [id number], FISH NOT BLAD, MARÍA, TSH3, FLOW NEOGENOMIC, CMP, RETIC, SCAN CBC, FE and TIBC, LDH #### [facility] [address] [place] [id number] [place] Protein Electrophoresis, Ser umon 02-26-2024 Pfjre-2-Kswruzbg 0.3 g/dL Normal 0.0-0.4 [facility] Comment on above: Performed By: #### H BSAB, HCV RX PCR, CAMILA, CU, PLT AB S, SPE, RA, HBSAG, HIV SCREEN, KAPPA, SADIE, HBCAB, SKIP SERUM ####[facility] ,#### CYTOGENE, T4F, [id number], FISH NOT BLAD, MARÍA, TSH3, FLOW NEOGENOMIC, CMP, RETIC, SCAN CBC, FE and TIBC, LDH ####[address] Qvyyj-2-Qjkxciyd 0.9 g/dL Normal 0.4-1.0 [facility] Comment on above: Performed By: #### H BSAB, HCV RX PCR, CAMILA, CU, PLT AB S, SPE, RA, HBSAG, HIV SCREEN, KAPPA, SADIE, HBCAB, SKIP SERUM ####[facility] ,#### CYTOGENE, T4F, [id number], FISH NOT BLAD, MARÍA, TSH3, FLOW NEOGENOMIC, CMP, RETIC, SCAN CBC, FE and TIBC, LDH ####[address] Beta Globulin 4.4 g/dL High 0.7-1.3 [facility] Comment on above: Performed By: #### H BSAB, HCV RX PCR, CAMILA, CU, PLT AB S, SPE, RA, HBSAG, HIV SCREEN, KAPPA, SADIE, HBCAB, SKIP SERUM ####[facility] ,#### CYTOGENE, T4F, [id number], FISH NOT BLAD, MARÍA, TSH3, FLOW NEOGENOMIC, CMP, RETIC, SCAN CBC, FE and TIBC, LDH ####[address] Gamma Globulin 0.6 g/dL Normal 0.4-1.8 [facility] Comment on above: Performed By: #### H BSAB, HCV RX PCR, CAMILA, CU, PLT AB S, SPE, RA, HBSAG, HIV SCREEN, KAPPA, SADIE, HBCAB, SKIP SERUM ####[facility] ,#### CYTOGENE, T4F, [id number], FISH NOT BLAD, MARÍA, TSH3, FLOW NEOGENOMIC, CMP, RETIC, SCAN CBC, FE and TIBC, LDH ####[place] [address] [place] M-Kody 3.7 g/dL High Not Observed [facility] Comment on above: Performed By: #### H BSAB, HCV RX PCR, CAMILA, CU, PLT AB S, SPE, RA, HBSAG, HIV SCREEN, KAPPA, SADIE, HBCAB, SKIP SERUM ####[facility] ,#### CYTOGENE, T4F, [id number], FISH NOT BLAD, MARÍA, TSH3, FLOW NEOGENOMIC, CMP, RETIC, SCAN CBC, FE and TIBC, LDH ####[place] [address] [address] SPE-Note Normal . [facility] Comment on above: Result Comment: Prot ein electrophoresis scan will follow via computer, mail, or accounting director delivery. Performed at: [address] [id number] Wellness Director: J Carlos Blackman PhD, Phone: [phone] Performed By: #### H BSAB, HCV RX PCR, CAMILA, CU, PLT AB S, SPE, RA, HBSAG, HIV SCREEN, KAPPA, SADIE, HBCAB, SKIP SERUM ####[facility] ,#### CYTOGENE, T4F, [id number], FISH NOT BLAD, MARÍA, TSH3, FLOW NEOGENOMIC, CMP, RETIC, SCAN CBC, FE and TIBC, LDH ####[place] [address] [address] Protein [Mass/volume] in Ser um or PlasmaOrdered By: Bertha Cuevas on 02-26-2024 Protein [Mass/Vol] 9.9 g/dL High 6.4-8.9 [facility] Comment on above: Performed By: #### H BSAB, HCV RX PCR, CAMILA, CU, PLT AB S, SPE, RA, HBSAG, HIV SCREEN, KAPPA, SADIE, HBCAB, SKIP SERUM #### [facility] , #### CYTOGENE, T4F, [id number], FISH NOT BLAD, MARÍA, TSH3, FLOW NEOGENOMIC, CMP, RETIC, SCAN CBC, FE and TIBC, LDH #### [facility] [address] Protein [Mass/Vol] 9.6 g/dL High 6.0-8.5 [facility] Comment on above: Performed By: #### H BSAB, HCV RX PCR, CAMILA, CU, PLT AB S, SPE, RA, HBSAG, HIV SCREEN, KAPPA, SADIE, HBCAB, SKIP SERUM ####[facility] ,#### CYTOGENE, T4F, [id number], FISH NOT BLAD, MARÍA, TSH3, FLOW NEOGENOMIC, CMP, RETIC, SCAN CBC, FE and TIBC, LDH ####[facility] RBC morphologyOrdered By: Endy Cuevas on 02-26-2024 RBC morphology finding Nom (Bld) Normal Normal Normal [facility] Comment on above: Performed By: #### H BSAB, HCV RX PCR, CAMILA, CU, PLT AB S, SPE, RA, HBSAG, HIV SCREEN, KAPPA, SADIE, HBCAB, SKIP SERUM #### [facility] , #### CYTOGENE, T4F, [id number], FISH NOT BLAD, MARÍA, TSH3, FLOW NEOGENOMIC, CMP, RETIC, SCAN CBC, FE and TIBC, LDH #### [facility] [address] Reticulocyte Counton 024 Reticulocyte Number 0.002 10*6/uL Low 0.024-0 .08 4 [facility] Comment on above: Result Comment: PERF ORMED BY: [facility] [address] [place] [address] PATHOLOGIST CRYOGENICS REPAIRER OTTO HARLEY M.D. Performed By: #### H BSAB, HCV RX PCR, CAMILA, CU, PLT AB S, SPE, RA, HBSAG, HIV SCREEN, KAPPA, SADIE, HBCAB, SKIP SERUM #### [facility] , #### CYTOGENE, T4F, [id number], FISH NOT BLAD, MARÍA, TSH3, FLOW NEOGENOMIC, CMP, RETIC, SCAN CBC, FE and TIBC, LDH #### [facility] [address] Reticulocyte Percent 0.1 % Low 0.5-1.5 [facility] Comment on above: Performed By: #### H BSAB, HCV RX PCR, CAMILA, CU, PLT AB S, SPE, RA, HBSAG, HIV SCREEN, KAPPA, SADIE, HBCAB, SKIP SERUM #### [facility] , #### CYTOGENE, T4F, [id number], FISH NOT BLAD, MARÍA, TSH3, FLOW NEOGENOMIC, CMP, RETIC, SCAN CBC, FE and TIBC, LDH #### [facility] [address] [place] [address] [place] Reticulocytes/100 RBC Auto ( Bld)Ordered By: Bertha Cuevas on 02-26-2024 Reticulocytes/100 RBC (Bld) 0.1 % Low 0.5-1.5 [facility] Rheumatoid Factoron 02-26-20 24 Rheumatoid Factor 12.8 Normal <14.0 [facility] Comment on above: Performed By: #### H BSAB, HCV RX PCR, CAMILA, CU, PLT AB S, SPE, RA, HBSAG, HIV SCREEN, KAPPA, SADIE, HBCAB, SKIP SERUM ####[facility] ,#### CYTOGENE, T4F, [id number], FISH NOT BLAD, MARÍA, TSH3, FLOW NEOGENOMIC, CMP, RETIC, SCAN CBC, FE and TIBC, LDH ####[facility] Scan and CBCon 02-26-2024 Macrocytosis Slight Normal [facility] Comment on above: Performed By: #### H BSAB, HCV RX PCR, CAMILA, CU, PLT AB S, SPE, RA, HBSAG, HIV SCREEN, KAPPA, SADIE, HBCAB, SKIP SERUM #### [facility] , #### CYTOGENE, T4F, [id number], FISH NOT BLAD, MARÍA, TSH3, FLOW NEOGENOMIC, CMP, RETIC, SCAN CBC, FE and TIBC, LDH #### [address] Mean Corpuscular HGB Conc 34.4 g/dL Normal 32.5-35.6 [facility] Comment on above: Performed By: #### H BSAB, HCV RX PCR, CAMILA, CU, PLT AB S, SPE, RA, HBSAG, HIV SCREEN, KAPPA, SADIE, HBCAB, SKIP SERUM #### [facility] , #### CYTOGENE, T4F, [id number], FISH NOT BLAD, MARÍA, TSH3, FLOW NEOGENOMIC, CMP, RETIC, SCAN CBC, FE and TIBC, LDH #### [address] NRBC% 0.2 /100{WBC} Normal 0-0.5 [facility] Comment on above: Performed By: #### H BSAB, HCV RX PCR, CAMILA, CU, PLT AB S, SPE, RA, HBSAG, HIV SCREEN, KAPPA, SADIE, HBCAB, SKIP SERUM #### [facility] , #### CYTOGENE, T4F, [id number], FISH NOT BLAD, MARÍA, TSH3, FLOW NEOGENOMIC, CMP, RETIC, SCAN CBC, FE and TIBC, LDH #### [address] Platelet Estimate Decreased Normal Normal [facility] Comment on above: Performed By: #### H BSAB, HCV RX PCR, CAMILA, CU, PLT AB S, SPE, RA, HBSAG, HIV SCREEN, KAPPA, SADIE, HBCAB, SKIP SERUM #### [facility] , #### CYTOGENE, T4F, [id number], FISH NOT BLAD, MARÍA, TSH3, FLOW NEOGENOMIC, CMP, RETIC, SCAN CBC, FE and TIBC, LDH #### [address] Platelet Morphology Normal Normal Normal [facility] Comment on above: Performed By: #### H BSAB, HCV RX PCR, CAMILA, CU, PLT AB S, SPE, RA, HBSAG, HIV SCREEN, KAPPA, SADIE, HBCAB, SKIP SERUM #### [facility] , #### CYTOGENE, T4F, [id number], FISH NOT BLAD, MARÍA, TSH3, FLOW NEOGENOMIC, CMP, RETIC, SCAN CBC, FE and TIBC, LDH #### [facility] [address] Serum HLA antibody detection by immunoassayOrdered By: Bertha Cuevas on 02-26-2024 HLA Ab IA Ql (S) Negative Negative [facility] Serum angiotensin converting enzyme (SADIE) measurementOrdered By: Bertha Cuevas on 02-26-2024 Angiotensin converting enzyme [Catalytic activity/Vol] 25 U/L Normal 14-82 [facility] Comment on above: Performed at: [facility] [place] [address]Lab Director: J Carlos Blackman PhD, Phone: [phone] Result Comment: Perf ormed at: [employer] [facility] [place] [address] Wellness Director: J Carlos Blackman PhD, Phone: [phone] Performed By: #### H BSAB, HCV RX PCR, CAMILA, CU, PLT AB S, SPE, RA, HBSAG, HIV SCREEN, KAPPA, SADIE, HBCAB, SKIP SERUM ####[facility] ,#### CYTOGENE, T4F, [id number], FISH NOT BLAD, MARÍA, TSH3, FLOW NEOGENOMIC, CMP, RETIC, SCAN CBC, FE and TIBC, LDH ####[facility] Serum globulin measurement ( mass/volume)Ordered By: Bertha Cuevas on 02-26-2024 Globulin (S) [Mass/Vol] 6.2 g/dL High 2.2-3.9 [facility] Comment on above: Performed By: #### H BSAB, HCV RX PCR, CAMILA, CU, PLT AB S, SPE, RA, HBSAG, HIV SCREEN, KAPPA, SADIE, HBCAB, SKIP SERUM ####[facility] ,#### CYTOGENE, T4F, [id number], FISH NOT BLAD, MARÍA, TSH3, FLOW NEOGENOMIC, CMP, RETIC, SCAN CBC, FE and TIBC, LDH ####[facility] [id number] Serum globulin measurement b y calculation (mass/volume)Ordered By: Bertha Pearce on 02-26-2024 Globulin (S) [Mass/Vol] 6.4 g/dL Normal [facility] Comment on above: Performed By: #### H BSAB, HCV RX PCR, CAMILA, CU, PLT AB S, SPE, RA, HBSAG, HIV SCREEN, KAPPA, SADIE, HBCAB, SKIP SERUM #### [facility] , #### CYTOGENE, T4F, [id number], FISH NOT BLAD, MARÍA, TSH3, FLOW NEOGENOMIC, CMP, RETIC, SCAN CBC, FE and TIBC, LDH #### [facility] [address] Serum homogeneous pattern an tinuclear antibody (CAMILA) titerOrdered By: Bertha Pearce on 02-26-2024 Homogenous nuclear Ab pattern (S) [Titer] 1:320 High . [facility] Comment on above: ICAP nomenclature: A C-1 Serum nuclear antibody titer Ordered By: Bertha Cuevas on 02-26-2024 Nuclear Ab (S) [Titer] Positive Abnormal . [facility] Comment on above: Negative <1:80 Borde rline 1:80 Positive >1:80 Serum or plasma albumin/glob ulin mass ratioOrdered By: Bertha Cuevas on 02-26-2024 Albumin/Globulin [Mass ratio] 0.5 {ratio} Low 0.7-1.7 [facility] Comment on above: Performed By: #### H BSAB, HCV RX PCR, CAMILA, CU, PLT AB S, SPE, RA, HBSAG, HIV SCREEN, KAPPA, SADIE, HBCAB, SKIP SERUM #### [facility] , #### CYTOGENE, T4F, [id number], FISH NOT BLAD, MARÍA, TSH3, FLOW NEOGENOMIC, CMP, RETIC, SCAN CBC, FE and TIBC, LDH #### [facility] [address] Performed By: #### H BSAB, HCV RX PCR, CAMILA, CU, PLT AB S, SPE, RA, HBSAG, HIV SCREEN, KAPPA, SADIE, HBCAB, SKIP SERUM ####[facility] ,#### CYTOGENE, T4F, [id number], FISH NOT BLAD, MARÍA, TSH3, FLOW NEOGENOMIC, CMP, RETIC, SCAN CBC, FE and TIBC, LDH ####[facility] [id number] Serum or plasma alpha 1 glob ulin measurement by electrophoresis (mass/volume)Ordered By: Bertha Cueavs on 02-26-2024 Alpha 1 globulin Elph [Mass/Vol] 0.3 g/dL 0.0-0.4 [facility] Serum or plasma alpha 2 glob ulin measurement by electrophoresis (mass/volume)Ordered By: Bertha Cuevas on 02-26-2024 Alpha 2 globulin Elph [Mass/Vol] 0.9 g/dL 0.4-1.0 [facility] Serum or plasma anion gap de terminationOrdered By: Bertha Cuevas on 02-26-2024 Anion gap [Moles/Vol] 16.0 mmol/L High 6.0-15.0 [facility] Comment on above: Performed By: #### H BSAB, HCV RX PCR, CAMILA, CU, PLT AB S, SPE, RA, HBSAG, HIV SCREEN, KAPPA, SADIE, HBCAB, SKIP SERUM #### [facility] , #### CYTOGENE, T4F, [id number], FISH NOT BLAD, MARÍA, TSH3, FLOW NEOGENOMIC, CMP, RETIC, SCAN CBC, FE and TIBC, LDH #### [facility] [address] Serum or plasma beta globuli n measurement by electrophoresis (mass/volume)Ordered By: Mhartem Cuevas on 02-26-2024 Beta globulin Elph [Mass/Vol] 4.4 g/dL High 0.7-1.3 [facility] Serum or plasma gamma globul in measurement by electrophoresis (mass/volume)Ordered By: artem Cuevas on 02-26-2024 Gamma globulin Elph [Mass/Vol] 0.6 g/dL 0.4-1.8 [facility] Serum or plasma rheumatoid f actor measurement (units/volume)Ordered By: artem Cuevas on 02-26-2024 Rheumatoid factor Qn 12.8 [IU]/mL <14.0 [facility] Serum platelet glycoprotein IIb/IIIa antibody detection by immunoassayOrdered By: artem Cuevas on 02-26-2024 Platelet glycoprotein IIb/IIIa Ab IA Ql (S) Negative Negative [facility] Serum platelet glycoprotein Ia/IIa antibody detection by immunoassayOrdered By: [facility] Faith on 02-26-2024 Platelet glycoprotein Ia/IIa Ab IA Ql (S) Negative Negative [facility] Sodium [Moles/volume] in Ser um or PlasmaOrdered By: artem Cuevas on 02-26-2024 Sodium [Moles/Vol] 141 mmol/L Normal 136-145 [facility] Comment on above: Performed By: #### H BSAB, HCV RX PCR, CAMILA, CU, PLT AB S, SPE, RA, HBSAG, HIV SCREEN, KAPPA, SADIE, HBCAB, SKIP SERUM #### [facility] , #### CYTOGENE, T4F, [id number], FISH NOT BLAD, MARÍA, TSH3, FLOW NEOGENOMIC, CMP, RETIC, SCAN CBC, FE and TIBC, LDH #### [facility] [address] [place] [address] [facility] Thyrotropin [Units/volume] i n Serum or PlasmaOrdered By: artem Cuevas on 02-26-2024 TSH Qn 1.44 m[IU]/L Normal 0.45-5.33 [facility] Comment on above: Result Comment: PERF ORMED BY: [facility] [address] [place] [id number] PATHOLOGIST CRYOGENICS REPAIRER OTTO HARLEY M.D. Performed By: #### H BSAB, HCV RX PCR, CAMILA, CU, PLT AB S, SPE, RA, HBSAG, HIV SCREEN, KAPPA, SADIE, HBCAB, SKIP SERUM ####[facility] ,#### CYTOGENE, T4F, [id number], FISH NOT BLAD, MARÍA, TSH3, FLOW NEOGENOMIC, CMP, RETIC, SCAN CBC, FE and TIBC, LDH ####[place] [address] [place] [id number] [facility] Thyroxine (T4) free [Mass/vo lume] in Serum or PlasmaOrdered By: Bertha Cuevas on 02-26-2024 Free T4 [Mass/Vol] 0.95 ng/dL Normal 0.61-1.12 [facility] Comment on above: Performed By: #### H BSAB, HCV RX PCR, CAMILA, CU, PLT AB S, SPE, RA, HBSAG, HIV SCREEN, KAPPA, SADIE, HBCAB, SKIP SERUM ####[facility] ,#### CYTOGENE, T4F, [id number], FISH NOT BLAD, MARÍA, TSH3, FLOW NEOGENOMIC, CMP, RETIC, SCAN CBC, FE and TIBC, LDH ####[place] [id number] [facility] Transferrin [Mass/volume] in Serum or PlasmaOrdered By: Bertha Cuevas on 02-26-2024 Transferrin [Mass/Vol] 155 mg/dL Low 203-362 [facility] Comment on above: Performed By: #### H BSAB, HCV RX PCR, CAMILA, CU, PLT AB S, SPE, RA, HBSAG, HIV SCREEN, KAPPA, SADIE, HBCAB, SKIP SERUM #### [facility] , #### CYTOGENE, T4F, [id number], FISH NOT BLAD, MARÍA, TSH3, FLOW NEOGENOMIC, CMP, RETIC, SCAN CBC, FE and TIBC, LDH #### [facility] [address] [place] [address] Urea nitrogen [Mass/volume] in Serum or PlasmaOrdered By: Bertha Cuevas on 02-26-2024 Urea nitrogen [Mass/Vol] 34 mg/dL High 7-25 [facility] Comment on above: Performed By: #### H BSAB, HCV RX PCR, CAMILA, CU, PLT AB S, SPE, RA, HBSAG, HIV SCREEN, KAPPA, SADIE, HBCAB, SKIP SERUM #### [facility] , #### CYTOGENE, T4F, [id number], FISH NOT BLAD, MARÍA, TSH3, FLOW NEOGENOMIC, CMP, RETIC, SCAN CBC, FE and TIBC, LDH #### [facility] [address] [place] [address] Vit. B12/Folate Profileon Folate > 49.6 Normal >5.9 [facility] Comment on above: Result Comment: Edwina te reference range: >5.9 ng/ml The WHO technical consultation on folate and vitamin b12 deficiencies has determined that folate concentrations less than 4 ng/ml are considered deficient. Performed By: #### H BSAB, HCV RX PCR, CAMILA, CU, PLT AB S, SPE, RA, HBSAG, HIV SCREEN, KAPPA, SADIE, HBCAB, SKIP SERUM #### [facility] , #### CYTOGENE, T4F, [id number], FISH NOT BLAD, MARÍA, TSH3, FLOW NEOGENOMIC, CMP, RETIC, SCAN CBC, FE and TIBC, LDH #### [facility] [address] [place], [place] [id number] [facility] Vitamin B12 ser/plasOrdered By: Bertha Cuevas on 02-26-2024 Cobalamin (Vitamin B12) [Mass/Vol] 1961 pg/mL High 180-914 [facility] Comment on above: Performed By: #### H BSAB, HCV RX PCR, CAMILA, CU, PLT AB S, SPE, RA, HBSAG, HIV SCREEN, KAPPA, SADIE, HBCAB, SKIP SERUM #### [facility] , #### CYTOGENE, T4F, [id number], FISH NOT BLAD, MARÍA, TSH3, FLOW NEOGENOMIC, CMP, RETIC, SCAN CBC, FE and TIBC, LDH #### [facility] [address] [place] [id number] [facility] CT WATCHMAN FULL CONTRASTon 12-28-2023 CT WATCHMAN FULL CONTRAST Interpreted By: Carlitos Aguilera, STUDY: CT WATCHMAN FULL CONTRAST; 12/28/2023 10:40 am INDICATION: Signs/Symptoms:A-fib, Post-Watchman. COMPARISON: CT dated 08/28/2023 ACCESSION NUMBER(S): [id number] ORDERING CLINICIAN: RYAN COBB TECHNIQUE: Using multi [...] Carlitos Aguilera 12/28/2023 11:32 AM Dictation workstation: [id number] [facility] No Panel Informationon 12-27 1. Status [...] Carlitos Aguilera 12/28/2023 11:32 AM Dictation workstation: [id number] Interpreted By: Carlitos Shah, STUDY: CT WATCHMAN FULL CONTRAST; 12/28/2023 10:40 am INDICATION: Signs/Symptoms:A-fib, Post-Watchman. COMPARISON: CT dated 08/28/2023 ACCESSION NUMBER(S): [id number] ORDERING CLINICIAN: RYAN COBB TECHNIQUE: Using multi [...] Post-Watchman. COMPARISON: CT dated 08/28/2023 ACCESSION NUMBER(S): [id number] ORDERING CLINICIAN: RYAN COBB TECHNIQUE: Using multi [...] chest in 12 months may be obtained. (Joshua Treestephanie Galarzaholashon et al., Guidelines for management of incidental pulmonary nodules detected on CT images: From the Fleischner Society 2017, Radiology. 2017 Nestor;284 (1):228-243.) [email or web address].[email or web address].IF.[email or web address] MACRO: None Signed by: Carlitos Aguilera 12/28/2023 11:32 AM Dictation workstation: [id number] [facility] Work Phone: Radiology Study observation (narrative) [facility] Work Phone: No Panel InformationOrdered By: Carlitos Aguilera on 12-28-2023 [facility] Work Phone: Ambulatory Visit Summaryon 0 12-03-2023 [...] spironolactone (spironolactone 25 mg Tab) thyroid desiccated ([place] Thyroid) Procedures Performed Urethral dilatation (11/03/2022), TURP [...] dosage) Where: [facility] [address], [place] [address] [phone] Medications What How Much When Instructions Changed tolterodine (tolterodine 2 mg Cap-ER) 1 Capsules By Mouth As Directed Take one cap in the morning and one at dinnertime. Pickup at [facility]/pharmacy #[id number] Unchanged APAP/ butalbital/ caffeine (APAP/ butalbital/ caffeine [...] if questions or concerns Unchanged thyroid desiccated ([place] Thyroid) By Mouth Every day Contact prescribing physician if questions or concerns Pharmacy Information [facility]/pharmacy #[id number]: [address], [place] [id number] [phone] Allergies No Known Allergies Problems Ongoing - [...] especially fr (more content not included)... Normal [facility] Patient Educationon 12-03-19 24 Patient Education Obstetrics and Gynec ology Overactive [...] health care provider. General instructions ? Take pgrd-bfk-kefrdju and prescription medicines only as told by [...] monitor yo (more content not included)... Normal [facility] Urology Office/Clinic Noteon 12-03-2023 Urology Office/Clinic [...] and night). New rx sent to [facility]. -Double void maneuvers 2. BPH with [...] mg/dL protein. Follow-up With When Contact Information Trung FERGUSON MD, URL [facility] [address], [place] [address] [phone] Additional Instructions: 6 mos (increase med dosage) [...] Medications APAP/butalbital/caffeine 325 mg-50 mg-40 mg Tab [place] Thyroid, Oral, Daily atorvastatin, Oral, Daily Butapap [...] lifetime) Tobac (more content not included)... 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 CASE CANCELLED DUE TO LOW H&H. Normal [facility] Utilization Review Noteon Utilization Review Note Reg as EXT REC, no documents. NOT IPO Still no information from [facility] yet. Still no information from [facility] yet. Approved for outpatient per [facility]. Normal [facility] HEMOon 11-16-2023 Nucleated RBC 0 /100WBC Normal [facility] Comment on above: Performed By: #### 1 [id number] ####[facility] [id number] [place] [address] Medical Director: Eh Gould MD MAN DIFFon 11-16-[address] 0.12 x1000 Normal 0.00-0.70 [facility] [place] Comment on above: Performed By: #### 1 [id number] ####[facility] Owcdgciz42541 [place] [address] Medical Director: Eh Gould MD Absolute Eos Ct 0.07 x1000 Normal 0.00-0.50 [facility] Comment on above: Performed By: #### 1 12932, 921989 ####[facility] Aalncsie09127 [place] [address] Medical Director: Eh Gould MD Absolute Lymph Ct 1.10 x1000 Low 1.20-4.80 [facility] Comment on above: Performed By: #### 1 , 067663 ####[facility] Hgllkpqf98772 [place] [address] Medical Director: Eh Gould MD Absolute Neutrophil Ct 1.22 x1000 Low 1.40-8.80 So [facility] Comment on above: Performed By: #### 1 , 460418 ####[facility] Hyimzukr64538 [place] [address] Medical Director: Eh Gould MD Absolute Seg Ct 1.10 x1000 Low 1.40-8.80 [facility] Comment on above: Performed By: #### 1 , 086884 ####[facility] Cwfrtbmw40317 [place] [address] Medical Director: Eh Gould MD Band form neutrophils/100 WBC (Bld) 5 % Normal [facility] Comment on above: Performed By: #### 1 01579, 310681 ####[facility] Dqrqflrf92678 [place] [address] Medical Director: Eh Gould MD Eosinophils/100 WBC (Bld) 3 % Normal [facility] Comment on above: Performed By: #### 1 , 996524 ####[facility] Awjlrpvc05195 [place] [address] Medical Director: Eh Gould MD Lymphocytes/100 WBC (Bld) 46 % Normal [facility] Comment on above: Performed By: #### 1 28674, 839841 ####[facility] Pybpxvun01076 [place] [address] Medical Director: Eh Gould MD Macrocytosis Moderate Normal [facility] Comment on above: Performed By: #### 1 28228, 874200 ####[facility] Ziiawwfd31764 [place] [address] Medical Director: Eh Gould MD Segmented neutrophils/100 WBC (Bld) 46 % Normal [facility] Comment on above: Performed By: #### 1 29431, 351903 ####[facility] [address] [place] [address] Medical Director: Eh Gould MD ABORHon 11-15-2023 ABORH Interpretation Positive Normal [facility] Comment on above: Performed By: #### C D:[id number], CD:[id number] #### [facility] [address] [place] [address] Cardiologist: Eh Gould MD Patient History Check Previous Hx Normal So [facility] Comment on above: Performed By: #### C D:[id number], CD:[id number] #### [facility] [address] [place] [address] Cardiologist: Eh Gould MD VS 0.8% a cells 0 Normal [facility] Comment on above: Performed By: #### C D:[id number], CD:[id number] #### [facility] [address] [place] [address] Cardiologist: Eh Gould MD VS 0.8% b cells 3+ Normal [facility] Comment on above: Performed By: #### C D:[id number], CD:[id number] #### [facility] [address] [place] [address] [place] [address] Cardiologist: Eh Gould MD VS Anti-A Unit 4+ [facility] Comment on above: Performed By: #### C D:[id number], CD:[id number] #### [facility] [address] [place] [address] [place] [address] Cardiologist: Eh Gould MD VS Anti-B Unit 0 [facility] Comment on above: Performed By: #### C D:[id number], CD:[id number] #### [facility] [address] [place] [address] Cardiologist: Eh Gould MD VS Anti-D Unit 4+ [facility] Comment on above: Performed By: #### C D:[id number], CD:[id number] #### [facility] [address] [place] [address] Cardiologist: Eh Gould MD ABSCon 11-15-2023 ABSC Final Interp Negative [facility] Comment on above: Performed By: #### C D:[id number], CD:[id number] #### [facility] [address] [place] [address] Cardiologist: Eh Gould MD Pt Hx check done? Yes [facility] Comment on above: Performed By: #### C D:[id number], CD:[id number] #### [facility] [address] [place] [address] Cardiologist: Eh Gould MD VS SCI Gel 0 [facility] Comment on above: Performed By: #### C D:[id number], CD:[id number] #### [facility] [address] [place] [address] Cardiologist: Eh Gould MD VS SCII Gel 0 Normal [facility] Comment on above: Performed By: #### C D:[id number], CD:[id number] #### [facility] [address] [place] [address] Cardiologist: Eh Gould MD DVT/VTE Risk Factor-Texton 0 [...] Price RN - 11/15/2023 13:48 EST Normal [facility] HEMOon 11-15-2023 DIFF? Yes Normal [facility] Comment on above: Performed By: #### 1 21871, 236006 ####[facility] [address] [place] 7485130 Medical Director: Eh Gould MD Dx Actions See Notes Abnormal [facility] Comment on above: Result Comment: Scan for RBC Morphology Scan Slide. Perform manual diff if needed. SNV Performed By: #### 1 04336, 818418 ####[facility] Brpjevup21687 [place], [place] 7926830 Medical Director: Eh Gould MD Erythrocyte distribution width (RBC) [Ratio] 14.5 % Normal 11.5-14.5 [facility] Comment on above: Performed By: #### 1 77010, 726677 ####[facility] Dkypvogr51534 [place] [address] Medical Director: Eh Gould MD Hematocrit (Bld) [Volume fraction] 25.3 % Low 41.0-52.0 [facility] Comment on above: Performed By: #### 1 , 781043 ####[facility] Naeuxoxd36287 [place], [place] 58[address]) [phone] Director: Eh Gould MD Hemoglobin (Bld) [Mass/Vol] 8.7 g/dL Low 13.5-17.5 [facility] Comment on above: Performed By: #### 1 , 424354 ####[facility] Duecibvo12551 [place] [address] Medical Director: Eh Gould MD Instr WBC 2.4 Normal [facility] Comment on above: Performed By: #### 1 , 337157 ####[facility] Wdclgsdr80285 [place] [address] Medical Director: Eh Gould MD MCH (RBC) [Entitic mass] 38.3 pg High 27.0-34.0 [facility] Comment on above: Performed By: #### 1 , 533887 ####[facility] Bpzwloph62809 [place], [place] [id number]) [phone] Director: Eh Gould MD MCHC (RBC) [Mass/Vol] 34.6 g/dL Normal 32.0-37.0 [facility] Comment on above: Performed By: #### 1 , 434337 ####[facility] Zcdmtodc93625 [place] [address] Medical Director: Eh Gould MD MCV (RBC) [Entitic vol] 110.6 fL High 80.0-100.0 [facility] Comment on above: Performed By: #### 1 , 815551 ####[facility] Anvkiljw71561 [place] [address] Medical Director: Eh Gould MD Platelet 142 x10 Low 150-450 [facility] Comment on above: Performed By: #### 1 , 905973 ####[facility] Udniskjq60648 [place], [place] [id number]) [phone] Director: Eh Gould MD Platelet mean volume (Bld) [Entitic vol] 6.4 fL Low 7.4-10.4 [facility] Comment on above: Performed By: #### 1 47288, 688134 ####[facility] [address] [place] [address] [id number]) [phone] Director: Eh Gould MD RBC 2.29 x10 Low 4.70-6.10 [facility] Comment on above: Result Comment: Note : RBC morphology is normal unless otherwise stated. Evaluation performed only if differential is requested. Performed By: #### 1 85335, 941593 ####[facility] [address] [place] [address] [id number]) [phone] Director: Eh Gould MD WBC 2.4 x10 Low 4.5-11.0 [facility] Comment on above: Performed By: #### 1 08754, 388079 ####[facility] [address] [place], [place] [address]) [phone] Director: Eh Gould MD [...] Orders received during the phone conversation. Normal [facility] Preadmission Testing Progress Note PREADMISSION [...] must be reported to your surgeon. Normal [facility] UAon 11-15-2023 Appearance, U Clear Normal [facility] Comment on above: Performed By: #### 1 58996 #### [facility] [address] [place] [address] Cardiologist: Eh Gould MD Bilirubin, U Negative Normal Negative [facility] Comment on above: Performed By: #### 1 25382 #### [facility] [address] [place] [address] Cardiologist: Eh Gould MD Blood, U Small Abnormal Negative [facility] Comment on above: Performed By: #### 1 32417 #### [facility] [address] [place] [address] Cardiologist: Eh Gould MD Color, U Yellow Normal [facility] Comment on above: Performed By: #### 1 92343 #### [facility] [address] [place] [address] Cardiologist: Eh Gould MD Glucose Qual, U Negative Normal Negative [facility] Comment on above: Performed By: #### 1 70032 #### [facility] [address] [place] [address]20[address] Cardiologist: Eh Gould MD Ketones, U Negative Normal Negative [facility] Comment on above: Performed By: #### 1 76048 #### [facility] [address] [place] [address] Cardiologist: Eh Gould MD Leukocyte Esterase, U Negative Normal Negative [facility] Comment on above: Performed By: #### 1 55742 #### [facility] [address] [place] [address] Cardiologist: Eh Gould MD Mucous, U Occasional Normal [facility] Comment on above: Performed By: #### 1 77634 #### [facility] [address] [place] [address] 19745 Cardiologist: Eh Gould MD Nitrite, U Negative Normal Negative [facility] Comment on above: Performed By: #### 1 22534 #### [facility] [address] [place] [address] Cardiologist: Eh Gould MD pH, U 5.0 Normal 4.5-8.0 [facility] Comment on above: Performed By: #### 1 44014 #### [facility] [address] [place] [address] 64[address] Cardiologist: Eh Gould MD Protein, U Negative Normal Negative [facility] Comment on above: Performed By: #### 1 53470 #### [facility] [address] [place] [address] 13366 Cardiologist: hE Gould MD RBC/HPF, U <1 Normal 0-3 [facility] Comment on above: Performed By: #### 1 95279 #### [facility] [address] [place] [address]24 Cardiologist: Eh Gould MD Specific [place], U 1.014 Normal 1.001-1. 03 5 [facility] Comment on above: Performed By: #### 1 48495 #### [facility] [address] [place] [address] 89819 Cardiologist: Eh Gould MD Squamous Epithelial Cells, U <1 Normal [facility] Comment on above: Performed By: #### 1 19501 #### [facility] [address] [place] [address] 36487 Cardiologist: Eh Gould MD U MICRO Indicated Normal [facility] Comment on above: Performed By: #### 1 94481 #### [facility] [address] [place] [address]3572 Cardiologist: Eh Gould MD Urobilinogen Qual, U <2.0 mg/dl Normal <2.0 mg/dl [facility] Comment on above: Result Comment: EU/d l and mg/dl are equivalent units. Performed By: #### 1 28918 #### [facility] [address] [place] [address] 16930 Cardiologist: Eh Gould MD WBC/HPF, U 2 #/HPF Normal 0-5 [facility] Comment on above: Performed By: #### 1 01752 #### [facility] [address] [place] [address] 7[address]70 Cardiologist: Eh Gould MD Preadmission Testing Progres s Noteon 11-14-2023 Preadmission Testing Progress Note Registration called P.A.T.,stating the pt. may not show and reschedule. Pt did not show for appointment. Called Dr. Shaffer's office. Spoke to Alexandra, she stated the CT foe watchman check is scheduled for the 20 of November and is needed for the clearance to be completed. Normal [facility] ABORHon 10-15-2023 ABORH CK Interp Positive Normal [facility] Comment on above: Performed By: #### C D:[id number], CD:[id number] #### [facility] [address] [place] [address]65 Cardiologist: Eh Gould MD Anti-A recheck 4+ [facility] Comment on above: Performed By: #### C D:[id number], CD:[id number] #### [facility] [address] [place] [address] Cardiologist: Eh Gould MD Anti-B recheck 0 Normal [facility] Comment on above: Performed By: #### C D:[id number], CD:[id number] #### [facility] [address] [place] [address] 81680 Cardiologist: Eh Gould MD Anti-D recheck 3+ Normal [facility] Comment on above: Performed By: #### C D:[id number], CD:[id number] #### [facility] [address] [place] [address] Cardiologist: Eh Gould MD Pathologist Reviewon 024 Diff [...] ruled out. Clinical correlation is recommended. Normal [facility] Comment on above: Order Comment: Added on by Discern Expert Rule. Result Comment: CAMILA ZEPEDA (Electronic Signature) Date Verified 10/15/23 Performed By: #### 9 021064, 407742, 7367471, 376399, 456712, 738561 ####[facility] Rcfftdex27693 [place] [address] Medical Director: Eh Gould MD Preadmission Testing [...] voice mail all available numbers for office, fire prevention chief and PA. Left messages on voice mail [...] patient and and notify surgery scheduling. Normal [facility] Utilization Review Noteon Utilization Review [...] SHOULDER REPLACEMENT CANCELED PER PREACCESS. CANCELLED. Normal [facility] ABORHon 10-12-2023 ABORH Interpretation Positive Normal [facility] Comment on above: Performed By: #### C D:[id number], CD:[id number] #### [facility] [address] [place], [place] [address] Cardiologist: Eh Gould MD Patient History Check No Previous Hx Normal [facility] Comment on above: Result Comment: 09/24 10:30 [id number] ABO Recheck to be ordered on admit. Surgery Date: 10/16/23 Performed By: #### C D:[id number], CD:[id number] #### [facility] [address] [place], [place] [address] Cardiologist: Eh Gould MD VS 0.8% a cells 0 Normal [facility] Comment on above: Performed By: #### C D:[id number], CD:[id number] #### [facility] [address] [place] [address] Cardiologist: Eh Gould MD VS 0.8% b cells 3+ Normal [facility] Comment on above: Performed By: #### C D:[id number], CD:[id number] #### [facility] [address] [place] [address] 58961 Cardiologist: Eh Gould MD VS Anti-A Unit 4+ Normal [facility] Comment on above: Performed By: #### C D:[id number], CD:[id number] #### [facility] [address] [place] [address]3951 Cardiologist: Eh Gould MD VS Anti-B Unit 0 [facility] Comment on above: Performed By: #### C D:[id number], CD:[id number] #### [facility] [address] [place] [address] 09415 Cardiologist: Eh Gould MD VS Anti-D Unit 4+ [facility] Comment on above: Performed By: #### C D:[id number], CD:[id number] #### [facility] [address] [place] [address] 15988 Cardiologist: Eh Gould MD ABSCon 10-12-2023 ABSC Final Interp Negative [facility] Comment on above: Performed By: #### C D:[id number], CD:[id number] ####[facility] [address] [place] [address] Medical Director: Eh Gould MD Pt Hx check done? Yes [facility] Comment on above: Performed By: #### C D:[id number], CD:[id number] ####[facility] [address] [place] [address] Medical Director: Eh Gould MD VS SCI Gel 0 [facility] Comment on above: Performed By: #### C D:[id number], CD:[id number] ####[facility] [address] [place] [address] Medical Director: Eh Gould MD VS SCII Gel 0 Normal [facility] Comment on above: Performed By: #### C D:[id number], CD:[id number] ####[facility] [address] [place] 7485130 Medical Director: Eh Gould MD APTTon 10-12-2023 aPTT Coag (d) [Time] 29.5 s Normal 27.0-38.0 So [facility] Comment on above: Result Comment: APTT Interpretation: This test has not been validated to monitor heparin therapy. APTT test is used as an initial test for suspected bleeding disorder. Anti-Xa UFH test is used to monitor heparin therapy. Performed By: #### 9 901396, 142026, 8790669, 185180, 897496, 904803 ####[facility] [address] [place] 7485130 Medical Director: Eh Gould MD AUTO DIFFon 10-12-2023 Baso Count 0.02 x1000 Normal 0.00-0.20 [facility] Comment on above: Performed By: #### 9 577227, 651434, 0331104, 240740, 528661, 353574 ####[facility] [address] [place], [place] [address]30 Medical Director: Eh Gould MD Basos % 0.8 % Normal [facility] Comment on above: Performed By: #### 9 410260, 632149, 7793504, 672336, 780887, 769930 ####[facility] [address]yowsw91244 [place] [address] Medical Director: Eh Gould MD Eos Count 0.21 x1000 Normal 0.00-0.50 [facility] Comment on above: Performed By: #### 9 426806, 746612, 2288333, 843312, 604689, 909222 ####[facility] Jzspwiua17167 [place] [address] Medical Director: Eh Gould MD Eosinophils/100 WBC (Bld) 7.5 % Normal [facility] Comment on above: Performed By: #### 9 297293, 348859, 3738475, 577623, 436237, 776325 ####[facility] Ifnevzam72680 [place] [address] Medical Director: Eh Gould MD Lymph Count 1.03 x1000 Low 1.20-4.80 [facility] Comment on above: Performed By: #### 9 610656, 443701, 7813197, 044637, 422800, 126379 ####[facility] [address]frulq156[address] [place] [address] Medical Director: Eh Gould MD Lymphocytes/100 WBC (Bld) 36.5 % Normal [facility] Comment on above: Performed By: #### 9 641695, 080262, 4944330, 899567, 212878, 944280 ####[facility] [address]bni[address] [place] [address] Medical Director: Eh Gould MD Rabun Count 0.08 x1000 Low 0.10-1.00 [facility] Comment on above: Performed By: #### 9 443447, 563507, 4586318, 368031, 582521, 648770 ####[facility] Hwroasax48691 [place] [address] Medical Director: Eh Gould MD Monocytes/100 WBC (Bld) 2.8 % Normal [facility] Comment on above: Performed By: #### 9 535786, 596592, 6239506, 802644, 111320, 965304 ####[facility] [address]ffazk94752 [place] [address] Medical Director: Eh Gould MD Neutrophil Count (ANC) 1.48 x1000 Normal 1.40-8.80 So [facility] Comment on above: Performed By: #### 9 638435, 148660, 3967450, 287462, 748406, 139774 ####[facility] Yyidawrf14927 [place] [address] Medical Director: Eh Gould MD Neutrophils/100 WBC (Bld) 52.5 % Normal [facility] Comment on above: Performed By: #### 9 360506, 229029, 1161650, 677186, 650703, 438088 ####[facility] [address]ymkxx189[address] [place] [address] Medical Director: Eh Gould MD Red Blood Cell Morphology See Notes Abnormal [facility] Comment on above: Result Comment: Macr ocytosis 2+ Rouleaux 1+ Performed By: #### 9 139510, 315380, 3502390, 865954, 656915, 281579 ####[facility] [address]chksqhe77039 [place] [address] Medical Director: Eh Gould MD Scan Differential Diff Scd Normal [facility] Comment on above: Result Comment: Slid e reviewed by technologist. Performed By: #### 9 166000, 953580, 2052759, 310023, 955910, 415658 ####[facility] [address] [place] [address] Medical Director: Eh Gould MD BASICMETAon 10-12-2023 Calcium [Mass/Vol] 10.1 mg/dL Normal 8.7-10.4 [facility] Comment on above: Performed By: #### 9 297645, 180311, 3753567, 093053, 107388, 146251 ####[facility] Qzrxjkjs44610 [place] [address] Medical Director: Eh Gould MD Chloride [Moles/Vol] 103 mmol/L Normal 98-107 [facility] Comment on above: Performed By: #### 9 613877, 954820, 3419298, 626943, 231615, 903445 ####[facility] Ahgbtnlr36796 [place] [address] Medical Director: Eh Gould MD CO2 [Moles/Vol] 27.0 mmol/L Normal 20.0-31.0 [facility] Comment on above: Performed By: #### 9 292448, 000247, 9288133, 475926, 976557, 974044 ####[facility] Ivpredck84365 [place] [address] Medical Director: Eh Gould MD Creatinine [Mass/Vol] 1.2 mg/dL High 0.6-1.1 [facility] Comment on above: Performed By: #### 9 689479, 343439, 5900494, 423963, 206059, 593158 ####[facility] Z[address]uychh02940 [place] [address] Medical Director: Eh Gould MD GFR AA >60 Normal [facility] Comment on above: Result Comment: Afri can Cameroonian GFR Calc Medical judgement is necessary to [...] for drug dosing. Performed By: #### 9 272136, 160158, 3144852, 286958, 346813, 568195 ####[facility] Mlfvffdv33311 [place] [address] Medical Director: Eh Gould MD Glomerular Filtration Rate 59 mL/min/1.73m? Normal [facility] Comment on above: [...] for drug dosing. Performed By: #### 9 721358, 795230, 0952662, 519593, 314512, 623173 ####[facility] Cecrtibn56175 [place], [place] [address]) [phone] Director: Eh Gould MD Glucose [Mass/Vol] 111 mg/dL High 74-106 [facility] Comment on above: Performed By: #### 9 914350, 712314, 9129722, 250658, 296115, 358999 ####[facility] [address]xmqp906[address] [place] [address] Medical Director: Eh Gould MD Osmolality [Osmolality] 281 mosm/kg Normal 275-295 [facility] Comment on above: Performed By: #### 9 612879, 326063, 0483853, 768539, 360390, 067870 ####[facility] [address]qdykp56185 [place] [address] Medical Director: Eh Gould MD Potassium [Moles/Vol] 4.0 mmol/L Normal 3.5-5.1 [facility] Comment on above: Performed By: #### 9 186126, 651325, 3718838, 476720, 106541, 064917 ####[facility] [address]hjyyg[address] [place] [address] Medical Director: Eh Gould MD Sodium [Moles/Vol] 140 mmol/L Normal 135-145 [facility] Comment on above: Performed By: #### 9 346938, 753878, 0302586, 938434, 062238, 309198 ####[facility] [address]qmqv01[address] [place] [address] Medical Director: Eh Gould MD Urea nitrogen [Mass/Vol] 16 mg/dL Normal 06-16 [facility] Comment on above: Result Comment: - Ve nipuncture should occur prior to N-Acetyl Cysteine (NAC) or Metamizole (Sulpyrine) administration due to the potential for falsely depressed results. - Blood samples from some patients with monoclonal gammopathies may produce falsely elevated results Performed By: #### 9 766446, 100021, 1191930, 110947, 020266, 137342 ####[facility] Rxqbmyyw38453 [place] [address] Medical Director: Eh Gould MD Urea nitrogen/Creatinine [Mass ratio] 13.3 mg/mg Normal [facility] Comment on above: Performed By: #### 9 879351, 356345, 8265258, 938238, 126421, 290899 ####[facility] Clczifwe33786 [place] [address] Medical Director: Eh Gould MD HEMOon 10-12-2023 DIFF? No Normal [facility] Comment on above: Performed By: #### 9 987974, 346340, 5409415, 410807, 944490, 513859 ####[facility] [address]vgbipe[address] [place] [address] Medical Director: Eh Gould MD HEM PATH REVIEW See Diff Review Interp Normal [facility] Comment on above: Performed By: #### 9 954511, 321243, 8312667, 623917, 826333, 142169 ####[facility] [address]fexaq[address] [place] [address] Medical Director: Eh Gould MD Nucleated RBC 0 /100WBC [facility] Comment on above: Performed By: #### 9 597321, 336854, 5587587, 091007, 570194, 750003 ####[facility] Fxzujydf91250 [place] [address] Medical Director: Eh Gould MD [facility] Actions See Notes Abnormal [facility] Comment on above: Result Comment: Scan for RBC Morphology Scan Slide. Perform manual diff if needed. SNV Performed By: #### 9 682233, 340678, 6301811, 487409, 644899, 950268 ####[facility] Smmybzap31032 [place], [place] [address]) [phone] Director: Eh Gould MD Erythrocyte distribution width (RBC) [Ratio] 13.5 % Normal 11.5-14.5 [facility] Comment on above: Performed By: #### 9 153327, 714589, 5328388, 933574, 258112, 947522 ####[facility] Lhcbmvfp18515 [place] [address] Medical Director: Eh Gould MD Hematocrit (Bld) [Volume fraction] 27.4 % Low 41.0-52.0 [facility] Comment on above: Performed By: #### 9 117558, 664778, 4653982, 049895, 966198, 919445 ####[facility] Amaosdsz04955 [place] [address] Medical Director: Eh Gould MD Hemoglobin (Bld) [Mass/Vol] 9.4 g/dL Low 13.5-17.5 [facility] Comment on above: Performed By: #### 9 996071, 093649, 9311041, 146183, 685135, 575858 ####[facility] [address]ewokcp26[address] [place] [address] Medical Director: Eh Gould MD Instr WBC 2.8 Normal [facility] Comment on above: Performed By: #### 9 348604, 226523, 0605839, 828559, 290498, 639825 ####[facility] Erfnveyv[address]23[address] [place], [place] [address]) [phone] Director: Eh Gould MD MCH (RBC) [Entitic mass] 37.4 pg High 27.0-34.0 [facility] Comment on above: Performed By: #### 9 024306, 502615, 1231762, 565394, 910312, 254707 ####[facility] M[address]fkcj04[address] [place], [place] [address]) [phone] Director: Eh Gould MD MCHC (RBC) [Mass/Vol] 34.2 g/dL Normal 32.0-37.0 [facility] Comment on above: Performed By: #### 9 767523, 325748, 5497166, 094090, 137408, 158848 ####[facility] Ciuvwoun81834 [place], [place] [address]) [phone] Director: Eh Gould MD MCV (RBC) [Entitic vol] 109.4 fL High 80.0-100.0 [facility] Comment on above: Performed By: #### 9 757723, 499619, 9072965, 695655, 565421, 971626 ####[facility] [address]bs[address]hxkr787[address] [place], [place] [address]) [phone] Director: Eh Gould MD Platelet 165 x10 Normal 150-450 [facility] Comment on above: Performed By: #### 9 587717, 339569, 2382067, 912710, 745829, 704637 ####[facility] Gepstgky16988 [place], [place] [address]) [phone] Director: Eh Gould MD Platelet mean volume (Bld) [Entitic vol] 6.3 fL Low 7.4-10.4 [facility] Comment on above: Performed By: #### 9 466732, 101382, 3533417, 002828, 330721, 309357 ####[facility] Atgydbei73[address] [place] [address] Medical Director: Eh Gould MD RBC 2.51 x10 Low 4.70-6.10 [facility] Comment on above: Result Comment: Note : RBC morphology is normal unless otherwise stated. Evaluation performed only if differential is requested. Performed By: #### 9 653827, 086365, 2595024, 911035, 019335, 427402 ####[facility] [address]qbav[address] [place] [address] Medical Director: Eh Goudl MD WBC 2.8 x10 Low 4.5-11.0 [facility] Comment on above: Performed By: #### 9 217782, 681422, 6101673, 837427, 055062, 277307 ####[facility] Ysurjcbu81328 [place] [address] Medical Director: Eh Gould MD PT INRon 10-12-2023 INR Coag (PPP) [Relative time] 1.2 {INR} Normal [facility] Comment on above: Result Comment: INR Reference Range: Normal reference range for INR on patients not on anticoagulant therapy: 0.9-1.1 General therapeutic range for patients on anticoagulant therapy: 2.0-3.5 Performed By: #### 9 950436, 004448, 7425964, 678340, 421398, 678016 ####[facility] Rwphqkas49400 [place] [address] Medical Director: Eh Gould MD Protime Patient 13.4 seconds High 9.8-12.8 [facility] Comment on above: Performed By: #### 9 020420, 044164, 5422526, 267828, 736008, 089408 ####[facility] [address]hg[address] [place] [address] Medical Director: Eh Gould MD Preadmission Testing [...] surgeon. Simba TOLEDO, Dante Lanier on Normal [facility] UAon 10-12-2023 U MICRO Indicated [facility] Comment on above: Performed By: #### 1 19109 #### [facility] [address] [place] [address] Cardiologist: Eh Gould MD Appearance, U Clear Normal [facility] Comment on above: Performed By: #### 1 84557 #### [facility] [address] [place] [address] Cardiologist: Eh Gould MD Bilirubin, U Negative Normal Negative [facility] Comment on above: Performed By: #### 1 77553 #### [facility] [address] [place] [address] Cardiologist: Eh Gould MD Blood, U Moderate Abnormal Negative [facility] Comment on above: Performed By: #### 1 87328 #### [facility] [address] [place] [address] Cardiologist: Eh Gould MD Color, U Yellow Normal [facility] Comment on above: Performed By: #### 1 22480 #### [facility] [address] [place] [address] Cardiologist: Eh Gould MD Glucose Qual, U Negative Normal Negative [facility] Comment on above: Performed By: #### 1 16451 #### [facility] [address] [place] [address] Cardiologist: Eh Gould MD Hyaline Cast <1 Normal [facility] Comment on above: Performed By: #### 1 98880 #### [facility] [address] [place], [place] [address] Cardiologist: Eh Gould MD Ketones, U Negative Normal Negative [facility] Comment on above: Performed By: #### 1 17398 #### [facility] [address] [place], [place] [address] Cardiologist: Eh Gould MD Leukocyte Esterase, U Negative Normal Negative [facility] Comment on above: Performed By: #### 1 25167 #### [facility] [address] [place], [place] [address] Cardiologist: Eh Gould MD Mucous, U Occasional Normal [facility] Comment on above: Performed By: #### 1 74082 #### [facility] [address] [place], [place] [address] Cardiologist: Eh Gould MD Nitrite, U Negative Normal Negative [facility] Comment on above: Performed By: #### 1 00436 #### [facility] [address] [place], [place] [address] Cardiologist: Eh Gould MD pH, U 5.0 Normal 4.5-8.0 [facility] Comment on above: Performed By: #### 1 89617 #### [facility] [address] [place], [place] [address] Cardiologist: Eh Gould MD Protein, U Negative Normal Negative [facility] Comment on above: Performed By: #### 1 28105 #### [facility] [address] [place], [place] [address] Cardiologist: Eh Gould MD RBC/HPF, U 5 #/HPF High 0-3 [facility] Comment on above: Performed By: #### 1 91433 #### [facility] [address] [place] [address] Cardiologist: Eh Gould MD Specific [place], U 1.016 Normal 1.001-1. 03 5 [facility] Comment on above: Performed By: #### 1 72589 #### [facility] [address] [place] [address] Cardiologist: Eh Gould MD Urobilinogen Qual, U <2.0 mg/dl Normal <2.0 mg/dl [facility] Comment on above: Result Comment: EU/d l and mg/dl are equivalent units. Performed By: #### 1 44366 #### [facility] [address] [place] [address] Cardiologist: Eh Gould MD WBC/HPF, U 7 #/HPF High 0-5 [facility] Comment on above: Performed By: #### 1 38106 #### [facility] [address] [place] [address] Cardiologist: Eh Gould MD Activated clotting timeon ACT Coag (Bld) 271 s High 89-169 [facility] Comment on above: Result Comment: Targ et ACT range will vary based on the patient population, clinical status, and surgical intervention occurring. Performed By: #### 3 184-9 #### JAVAD Stephenson ([id number]) [facility] ([facility]) [address] [place] [address] CT WATCHMAN FULL CONTRASTon 08-28-2023 CT WATCHMAN FULL CONTRAST Interpreted By: Purnima Lira, STUDY: CT WATCHMAN FULL CONTRAST; 08/28/2023 12:00 pm INDICATION: Signs/Symptoms:pre Watchman procedure SAME DAY CT. COMPARISON: None. ACCESSION NUMBER(S): [id number] ORDERING CLINICIAN: RYAN COBB TECHNIQUE: Using multi [...] Purnima Lira 09/06/2023 9:28 AM Dictation workstation: [id number] [facility] ECG 12-LEADon 08-28-2023 ECG 12-LEAD Ventricular Rate 63 Atrial Rate 63 P-R Interval 196 QRS Duration 86 Q-T Interval 402 QTC Calculation(Bazett) 411 P [place] 67 R [place] -1 T [place] 20 QRS Count 10 Q Onset 223 P Onset 125 P Offset 180 T Offset 424 QTC Fredericia 408 Diagnosis Normal sinus rhythm Inferior infarct Possible Anterior infarct Abnormal ECG Confirmed by Juan R Obrien ([id number]) on 08/30/2023 3:59:32 PM Normal [facility] STRUCTURAL HEART PROCEDUREon 08-28-2023 STRUCTURAL HEART PROCEDURE [facility], [place], [employer], [address] [place] [address] Cardiovascular Catheterization Report Patient Name: NEIL Matthews JERI Performing Physician: [id number] Cobb MD Study Date: 08/28/2023 Verifying Physician: Archie Cobb MD MRN/PID: [id number] Medical Attendant/Co-scrub: Ordering Physician: [id number] COBB Date of 1945 Fellow: [id number] Adam Benedict /Age: years Gender: M Fellow: [...] guidance, transseptal puncture was with a versacross (Spring.me), accessing the left atrium. The transseptal tract was then dilated with a Watchman Double Curve access sheath and the ICE probe was advanced through the dilated tract into the left atrium. Next, a 6 Haitian angled pigtail was advanced through the delivery [...] CPT Codes: Perc left atrial appendage closure (LAAC)-22789 [id number] Ryan Cobb MD Performing Physician Final [facility] TRANSTHORACIC ECHO (TTE) [facility] 08-28-2023 TRANSTHORACIC ECHO (TTE) [facility], [address] [place] [address] and TRANSTHORACIC ECHOCARDIOGRAM REPORT Patient Name: NEIL Aldana Physician: [id number] Jacobo French MD Study Date: 08/28/2023 Ordering Provider: [id number] LUCAS PEARCE MRN/PID: [id number] Fellow: Nurse: Date of 1945 Podopediatrician: Moncho Infante RDCS /Age: years Gender: M Additional Staff: Height: 175.26 cm Admit Date: 08/28/2023 Weight: 79.38 kg Admission Status: Inpatient - Routine BSA: 1.95 m2 [facility] Cath Location: Lab Blood Pressure: 137 /78 mmHg Study Type: TRANSTHORACIC ECHO (TTE) LIMITED Diagnosis/ICD: Unspecified atrial fibrillation-I48.91 Indication: POST LAAO CPT Code: Echo Limited-10740 Patient History: Pertinent History: HTN; HLD; paroxysmal [...] 72.4 g/m2 LV % FS 32.6 % [id number] Jacobo French MD Electronically signed on 08/28/2023 at 5:50:[address] [facility] TRANSTHORACIC ECHO (TTE) LIMITED [facility] [place], [address] [place] [address] and TRANSTHORACIC ECHOCARDIOGRAM REPORT Patient Name: MINDYCassie WILCOX Reading Physician: [id number] Kandis Chau MD Study Date: 08/28/2023 Ordering Provider: [id number] LUCAS PEARCE MRN/PID: [id number] Fellow: Nurse: Date of /Age: 1 1945 / 77 years Podopediatrician: Moncho Infante RDCS Gender: M Additional Staff: Height: 175.26 cm Admit Date: 08/28/2023 Weight: 79.38 kg Admission Status: Inpatient - Routine BSA: 1.95 m2 Department Location: [facility] Non Invasive Study Type: TRANSTHORACIC ECHO (TTE) LIMITED Diagnosis/ICD: Unspecified atrial fibrillation-I48.91 Indication: Pre-LAAO CPT Code: Echo Limited-78056 Patient History: Pertinent History: HTN; HLD: paroxysmal [...] VALVE/RVSP: Normal Ranges: IVC Diam: 1.50 cm [id number] Kandis Chau MD Electronically signed on 08/28/2023 at 3:17:19 PM Final Normal [facility] Heart Transthoracicon [facility] [place], [address] [place] [address] and TRANSTHORACIC ECHOCARDIOGRAM REPORT Patient Name: NEIL Matthews JERI Reading Physician: [id number] Kandis Chau MD Study Date: 08/28/2023 Ordering Provider: [id number] LUCAS PEARCE MRN/PID: [id number] Fellow: Nurse: Date of /Age: 1 1945 / 77 years Podopediatrician: Moncho Infante RDCS Gender: M Additional Staff: Height: 175.26 cm Admit Date: 08/28/2023 Weight: 79.38 kg Admission Status: Inpatient - Routine BSA: 1.95 m2 Department Location: [facility] Non Invasive Study Type: TRANSTHORACIC ECHO (TTE) LIMITED Diagnosis/ICD: Unspecified atrial fibrillation-I48.91 Indication: Pre-LAAO CPT Code: Echo Limited-97136 Patient History: Pertinent History: HTN; HLD: paroxysmal [...] VALVE/RVSP: Normal Ranges: IVC Diam: 1.50 cm [id number] Kandis Chau MD Electronically signed on 08/28/2023 at 3:17:19 PM Final AIYANAO Kandis Chau MD - 08/28/2023 [facility], [place], [address] [place] [address] and TRANSTHORACIC ECHOCARDIOGRAM REPORT Patient Name: MINDYCassie WILCOX Reading Physician: [id number] Kandis Chau MD Study Date: 08/28/2023 Ordering Provider: [id number] LUCAS PEARCE MRN/PID: [id number] Fellow: Nurse: Date of /Age: 1 1945 / 77 years Podopediatrician: Moncho Infante [place] Gender: M Additional Staff: Height: 175.26 cm Admit Date: 08/28/2023 Weight: 79.38 kg Admission Status: Inpatient - Routine BSA: 1.95 m2 Department Location: [facility] Non Invasive Study Type: TRANSTHORACIC ECHO (TTE) LIMITED Diagnosis/ICD: Unspecified atrial fibrillation-I48.91 Indication: Pre-LAAO CPT Code: Echo Limited-29285 Patient History: Pertinent History: HTN; HLD: paroxysmal [...] VALVE/RVSP: Normal Ranges: IVC Diam: 1.50 cm [id number] Kandis Chau MD Electronically signed on 08/28/2023 at 3:17:19 PM Final [facility] Work Phone: US Heart TransthoracicOrdere d By: Kandis Chau on 08-28-2023 [facility] Work Phone: Creatinineon 08-22-2023 Creatinine [Mass/Vol] 1.23 mg/dL Normal 0.50-1.30 [facility] Comment on above: Performed By: #### 2 160-0 #### LINDA GALLAGHER ([id number]) [facility] ([facility]) [address] [place] [address] Creatinine [Mass/Vol]on 07-26 GFR/1.73 sq M.predicted MDRD (S/P/Bld) [Vol rate/Area] 61 mL/min/1.73m*2 [address] >60 [facility] Comment on above: Result Comment: Calc ulations of estimated GFR are performed using the 2020 CKD-EPI Study Refit equation without the race variable for the IDMS-Traceable creatinine methods. https://jasn.asnjournals.org/content/early//ASN.39773 38364 Performed By: #### 2 160-0 #### LINDA GALLAGHER ([id number]) [facility] ([facility] [address] [place] [address] CBC W Auto Differential pane l (Bld)on 07-31-2023 Basophils (Bld) [#/Vol] 10*3/uL Normal <0.11 [facility] Comment on above: Order Comment: Speci men Type: BLOOD SPECIMEN Ordering Facility: External Submitter Address: , , Performed By: #### 5 7021-8 #### [facility] CLIA [id number] [address] [place] [address] [place] Basophils/100 WBC (Bld) 0.3 % Normal [facility] Comment on above: Order Comment: Speci men Type: BLOOD SPECIMEN Ordering Facility: External Submitter Address: , , Performed By: #### 5 7021-8 #### [facility] CLIA [id number] [address] [place] [address] [place] CBC W Differential panel, method unspecified (Bld) Done Normal [facility] Comment on above: Order Comment: Speci men Type: BLOOD SPECIMEN Ordering Facility: External Submitter Address: , , Performed By: #### 5 7021-8 #### [facility] CLIA [id number] [address] [place] [address] [place] Differential cell count method Nom (Bld) Auto Normal [facility] Comment on above: Order Comment: Speci men Type: BLOOD SPECIMEN Ordering Facility: External Submitter Address: , , Performed By: #### 5 7021-8 #### [facility] CLIA [id number] [address] [place] [address] [place] Eosinophils (Bld) [#/Vol] 0.22 10*3/uL Normal <0.46 [facility] Comment on above: Order Comment: Speci men Type: BLOOD SPECIMEN Ordering Facility: External Submitter Address: , , Performed By: #### 5 7021-8 #### [facility] CLIA [id number] [address] [place] [address] [place] Eosinophils/100 WBC (Bld) 6.5 % Normal [facility] Comment on above: Order Comment: Speci men Type: BLOOD SPECIMEN Ordering Facility: External Submitter Address: , , Performed By: #### 5 7021-8 #### [facility] CLIA [id number] [address] [place] [address] [place] Erythrocyte distribution width (RBC) [Ratio] 13.0 % Normal 11.5-15.0 [facility] Comment on above: Order Comment: Speci men Type: BLOOD SPECIMEN Ordering Facility: External Submitter Address: , , Performed By: #### 5 7021-8 #### [facility] CLIA [id number] [address] [place] [address] [place] Hematocrit (Bld) [Volume fraction] 31.3 % Low 39.0-51.0 [facility] Comment on above: Order Comment: Speci men Type: BLOOD SPECIMEN Ordering Facility: External Submitter Address: , , Performed By: #### 5 7021-8 #### [facility] CLIA [id number] [address] [place] [address] [place] Hemoglobin (Bld) [Mass/Vol] 10.4 g/dL Low 13.0-17.0 [facility] Comment on above: Order Comment: Speci men Type: BLOOD SPECIMEN Ordering Facility: External Submitter Address: , , Performed By: #### 5 7021-8 #### [facility] CLIA [id number] [address] [place] [address] [place] Immature granulocytes (Bld) [#/Vol] 10*3/uL Normal <0.10 [facility] Comment on above: Order Comment: Speci men Type: BLOOD SPECIMEN Ordering Facility: External Submitter Address: , , Performed By: #### 5 7021-8 #### [facility] CLIA [id number] [address] [place] [address] [place] Immature granulocytes/100 WBC (Bld) 0.0 % Normal [facility] Comment on above: Order Comment: Speci men Type: BLOOD SPECIMEN Ordering Facility: External Submitter Address: , , Performed By: #### 5 7021-8 #### [facility] CLIA [id number] [address] [place] [address] [place] Lymphocytes (Bld) [#/Vol] 1.06 10*3/uL Normal 1.00-4.00 [facility] Comment on above: Order Comment: Speci men Type: BLOOD SPECIMEN Ordering Facility: External Submitter Address: , , Performed By: #### 5 7021-8 #### [facility] CLIA [id number] [address] [place] [address] [place] Lymphocytes/100 WBC (Bld) 31.2 % Normal [facility] Comment on above: Order Comment: Speci men Type: BLOOD SPECIMEN Ordering Facility: External Submitter Address: , , Performed By: #### 5 7021-8 #### [facility] CLIA [id number] [address] [place] [address] [place] MCH (RBC) [Entitic mass] 37.3 pg High 26.0-34.0 [facility] Comment on above: Order Comment: Speci men Type: BLOOD SPECIMEN Ordering Facility: External Submitter Address: , , Performed By: #### 5 7021-8 #### [facility] CLIA [id number] [address] [place] [address] [place] MCHC (RBC) [Mass/Vol] 33.2 g/dL Normal 30.5-36.0 [facility] Comment on above: Order Comment: Speci men Type: BLOOD SPECIMEN Ordering Facility: External Submitter Address: , , Performed By: #### 5 7021-8 #### [facility] CLIA [id number] [address] [place] [address] [place] MCV (RBC) [Entitic vol] 112.2 fL High 80.0-100.0 [facility] Comment on above: Order Comment: Speci men Type: BLOOD SPECIMEN Ordering Facility: External Submitter Address: , , Performed By: #### 5 7021-8 #### [facility] CLIA [id number] [address] [place] [address] [place] Monocytes (Bld) [#/Vol] 0.13 10*3/uL Normal <0.87 [facility] Comment on above: Order Comment: Speci men Type: BLOOD SPECIMEN Ordering Facility: External Submitter Address: , , Performed By: #### 5 7021-8 #### [facility] CLIA [id number] [address] [place] [address] [place] Monocytes/100 WBC (Bld) 3.8 % Normal [facility] Comment on above: Order Comment: Speci men Type: BLOOD SPECIMEN Ordering Facility: External Submitter Address: , , Performed By: #### 5 7021-8 #### [facility] CLIA [id number] [address] [place] [address] [place] Neutrophils (Bld) [#/Vol] 1.98 10*3/uL Normal 1.45-7.50 [facility] Comment on above: Order Comment: Speci men Type: BLOOD SPECIMEN Ordering Facility: External Submitter Address: , , Performed By: #### 5 7021-8 #### [facility] CLIA [id number] [address] [place] [address] [place] Neutrophils/100 WBC (Bld) 58.2 % Normal [facility] Comment on above: Order Comment: Speci men Type: BLOOD SPECIMEN Ordering Facility: External Submitter Address: , , Performed By: #### 5 7021-8 #### [facility] CLIA [id number] [address] [place] [address] [place] Nucleated RBC (Bld) [#/Vol] 10*3/uL Normal <0.01 [facility] Comment on above: Order Comment: Speci men Type: BLOOD SPECIMEN Ordering Facility: External Submitter Address: , , Performed By: #### 5 7021-8 #### [facility] CLIA [id number] [address] [place] [address] [place] Nucleated RBC/100 WBC (Bld) [Ratio] 0.0 /100 WBC Normal [facility] Comment on above: Order Comment: Speci men Type: BLOOD SPECIMEN Ordering Facility: External Submitter Address: , , Performed By: #### 5 7021-8 #### [facility] CLIA [id number] [address] [place] [address] [place] Platelet mean volume (Bld) [Entitic vol] 9.1 fL Normal 9.0-12.7 [facility] Comment on above: Order Comment: Speci men Type: BLOOD SPECIMEN Ordering Facility: External Submitter Address: , , Performed By: #### 5 7021-8 #### [facility] CLIA [id number] [address] [place] [address] [place] Platelets (Bld) [#/Vol] 166 10*3/uL Normal 150-400 [facility] Comment on above: Order Comment: Speci men Type: BLOOD SPECIMEN Ordering Facility: External Submitter Address: , , Performed By: #### 5 7021-8 #### [facility] CLIA [id number] [address] [place] [address] [place] Platelets Estimate (Bld) [#/Vol] Adequate Normal [facility] Comment on above: Order Comment: Speci men Type: BLOOD SPECIMEN Ordering Facility: External Submitter Address: , , Performed By: #### 5 7021-8 #### [facility] CLIA [id number] [address] [place] [address] [place] RBC (Bld) [#/Vol] 2.79 10*6/uL Low 4.20-6.00 [facility] Comment on above: Order Comment: Speci men Type: BLOOD SPECIMEN Ordering Facility: External Submitter Address: , , Performed By: #### 5 7021-8 #### [facility] CLIA [id number] [address] [place] [address] [place] RED CELL MORPH Reviewed: unremarkable Normal [facility] Comment on above: Order Comment: Speci men Type: BLOOD SPECIMEN Ordering Facility: External Submitter Address: , , Performed By: #### 5 7021-8 #### [facility] CLIA [id number] [address] [place] [address] [place] WBC (Bld) [#/Vol] 3.40 10*3/uL Low 3.70-11.00 [facility] Comment on above: Order Comment: Speci men Type: BLOOD SPECIMEN Ordering Facility: External Submitter Address: , , Performed By: #### 5 7021-8 #### [facility] CLIA [id number] [address] [place] [address] [place] Comprehensive metabolic 2000 panelon 07-31-2023 Albumin [Mass/Vol] 3.8 g/dL Low 3.9-4.9 [facility] Comment on above: Order Comment: Speci men Type: BLOOD SPECIMEN Ordering Facility: External Submitter Address: , , Performed By: #### 2 4323-8, 3023-7, 3 #### [facility] CLIA [id number] [address] [place] [address] [place] ALP [Catalytic activity/Vol] 132 U/L High 38-113 [facility] Comment on above: Order Comment: Speci men Type: BLOOD SPECIMEN Ordering Facility: External Submitter Address: , , Performed By: #### 2 4323-8, 7, 3 #### [facility] CLIA [id number] [address] [place] [address] [place] ALT [Catalytic activity/Vol] 9 U/L Low 10-54 [facility] Comment on above: Order Comment: Speci men Type: BLOOD SPECIMEN Ordering Facility: External Submitter Address: , , Performed By: #### 2 4323-8, 3024-03, 3 #### [facility] CLIA [id number] [address] [place] [address] [place] Anion gap [Moles/Vol] 15 mmol/L Normal 9-18 [facility] Comment on above: Order Comment: Speci men Type: BLOOD SPECIMEN Ordering Facility: External Submitter Address: , , Performed By: #### 2 4323-8, 7, 3 #### [facility] CLIA [id number] [address] [place] [address] [place] AST [Catalytic activity/Vol] 16 U/L Normal 14-40 [facility] Comment on above: Order Comment: Speci men Type: BLOOD SPECIMEN Ordering Facility: External Submitter Address: , , Performed By: #### 2 4323-8, 3024-03, 3015-11 #### [facility] CLIA [id number] [address] [place] [address] [place] Bilirubin [Mass/Vol] 0.4 mg/dL Normal 0.2-1.3 [facility] Comment on above: Order Comment: Speci men Type: BLOOD SPECIMEN Ordering Facility: External Submitter Address: , , Performed By: #### 2 4323-8, 3024-03, 3015-11 #### [facility] CLIA [id number] [address] [place] [address] [place] Calcium [Mass/Vol] 9.6 mg/dL Normal 8.5-10.2 [facility] Comment on above: Order Comment: Speci men Type: BLOOD SPECIMEN Ordering Facility: External Submitter Address: , , Performed By: #### 2 4323-8, 3024-03, 3015-11 #### [facility] CLIA [id number] [address] [place] [address] [place] Chloride [Moles/Vol] 99 mmol/L Normal 97-105 [facility] Comment on above: Order Comment: Speci men Type: BLOOD SPECIMEN Ordering Facility: External Submitter Address: , , Performed By: #### 2 4323-8, 3024-03, 3015-11 #### [facility] CLIA [id number] [address] [place] [id number] [place] CO2 [Moles/Vol] 23 mmol/L Normal 22-30 [facility] Comment on above: Order Comment: Speci men Type: BLOOD SPECIMEN Ordering Facility: External Submitter Address: , , Performed By: #### 2 4323-8, 3024-03, 3016-3 #### [facility] CLIA [id number] [address] [address] [place] Creatinine [Mass/Vol] 1.23 mg/dL High 0.73-1.22 [facility] Comment on above: Order Comment: Gee vang Type: BLOOD SPECIMEN Ordering Facility: External Submitter Address: , , Performed By: #### 2 4323-8, 3024-7, 6-3 #### [facility] CLIA [id number] [address] [place] [id number] [place] Creatinine and Glomerular filtration rate.predicted panel (S/P/Bld) 61 mL/min/1.73m??? Normal >=60 [facility] Comment on above: Order Comment: [...] actual GFR. Performed By: #### 2 4323-8, 4-7, 6-3 #### [facility] CLIA [id number] [address] [place] [id number] [place] Glucose [Mass/Vol] 139 mg/dL High 74-99 [facility] Comment on above: Order Comment: Gee vang Type: BLOOD SPECIMEN Ordering Facility: External Submitter Address: , , Result Comment: The [place] Diabetes Association (ADA) provides guidance for cutoff [...] Standards of Medical Care in Diabetes 2016, [place] [employer]. Diabetes Care. 2016.39(Suppl 1). Performed By: #### 2 4323-8, 3023-7, 3015-3 #### [facility] CLIA [id number] [address] [place] [id number] [place] Potassium [Moles/Vol] 4.0 mmol/L Normal 3.7-5.1 [facility] Comment on above: Order Comment: Speci men Type: BLOOD SPECIMEN Ordering Facility: External Submitter Address: , , Performed By: #### 2 4322-8, 3024-03, 3015-11 #### [facility] CLIA [id number] [address] [place] [id number] [place] Protein [Mass/Vol] 7.7 g/dL Normal 6.3-8.0 [facility] Comment on above: Order Comment: Emilii ciera Type: BLOOD SPECIMEN Ordering Facility: External Submitter Address: , , Performed By: #### 2 8, 3024-03, 3015-11 #### [facility] CLIA [id number] [address] [place] [id number] [place] Sodium [Moles/Vol] 137 mmol/L Normal 136-144 [facility] Comment on above: Order Comment: Emilii men Type: BLOOD SPECIMEN Ordering Facility: External Submitter Address: , , Performed By: #### 2 3-8, 3024-03, 3015-11 #### [facility] CLIA [id number] [address] [address] [place] Urea nitrogen [Mass/Vol] 19 mg/dL Normal 9-24 [facility] Comment on above: Order Comment: Emilii men Type: BLOOD SPECIMEN Ordering Facility: External Submitter Address: , , Performed By: #### 2 4322-8, 3024-03, 3015-11 #### [facility] CLIA [id number] [address] [facility] [place] [address] [place] T4 Free SerPl-mCncon 023 Free T4 [Mass/Vol] 1.1 ng/dL Normal 0.9-1.7 [facility] Comment on above: Order Comment: Speci men Type: BLOOD SPECIMEN Ordering Facility: External Submitter Address: , , Performed By: #### 2 4323-8, 3024-7, 63 #### [facility] CLIA [id number] [address] [place] [address] [place] TSH SerPl-aCncon 07-31-2023 TSH Qn 4.190 m[IU]/L Normal 0.270-4.20 0 [facility] Comment on above: Order Comment: Speci men Type: BLOOD SPECIMEN Ordering Facility: External Submitter Address: , , Performed By: #### 2 4323-8, 3024-7, 3 #### [facility] CLIA [id number] [address] [place] [address] [place] Ambulatory Visit Summaryon 1 Ambulatory Visit Summary JERINEIL Ramirez M :1945 Visit Date:07/09/2023 Ambulatory Visit Instructions [...] spironolactone (spironolactone 25 mg Tab) thyroid desiccated ([place] Thyroid) Procedures Performed Urethral dilatation (11/03/2022), TURP [...] Where: [facility] [address] , [place] [address]- Medications What How Much When Instructions Changed tolterodine (tolterodine 2 mg Cap-ER) 1 Capsules By Mouth Every day Pickup at [facility]/pharmacy #[id number] Unchanged APAP/ butalbital/ caffeine (APAP/ butalbital/ caffeine [...] if questions or concerns Unchanged Misc Prescription ([facility] B-12 1,000 MCG TABLET) 0 Contact prescribing physician if questions or concerns Unchanged Non-Formulary Medication (Butapap cat 40mg PRN) Contact prescribing physician if questions or concerns Unchanged spironolactone (spironolactone 25 mg Tab) Contact prescribing physician if questions or concerns Unchanged thyroid desiccated ([place] Thyroid) By Mouth Every day Contact prescribing physician if questions or concerns Pharmacy Information [facility]/pharmacy #[id number]: [address], [place] [id number] [phone] Allergies No Known Allergies Problems Ongoing - [...] This condi (more content not included)... Normal [facility] Patient Educationon 07-09-20 Patient Education Urology [...] Follow these instructions at home: ? Take yhhj-lur-cqvhvyh and prescription medicines only as told by [...] the medicine (more content not included)... Normal [facility] Urology Office/Clinic Noteon 07-09-2023 Urology Office/Clinic [...] When Contact Information MARTY BETANCOURT, Trung Frost, URSeema In 4 months [facility] [address], [place] [address]- Additional Instructions: Patient Education Benign Prostatic Hyperplasia [...] Medications APAP/butalbital/caffeine 325 mg-50 mg-40 mg Tab [place] Thyroid, Oral, Daily atorvastatin, Oral, Daily Butapap [...] Orders Anemia Complete Blood Count; Status:Active; Requested for:[id number]; Atrial fibrillation, currently in sinus rhythm, Frequent falls Cardiology - Valve and Structural Heart Program Referral Evaluation and Treatment Evaluate AND Treat Status: Hold For - Scheduling Requested for: [id number] SocHx: Former smoker Tobacco Use Screening; Status:Complete; Done: [id number] Patient Instructions Please bring all medicines, vitamins, [...] education given referral to Dr. Cobb for [facility]. patient to call back after review of [...] fibrillation, hypercoagulability related to atrial fibrillation, high YHD2WB3-AWQz score, most recently seen February 2023 and [...] due to atrial fibrillation, on anticoagulation. 10. AAN3IK9-KEJe at least 5. Has bled score 2 [...] cuff rep (more content not included)... Normal [employer] Tobacco Screening.on 023 Fall risk assessment b) One or more fall s in the last year [facility] [employer] 250 DO Work Phone: Tobacco use status [facility] b) No [facility] Agency [employer] 250 DO Work Phone: Tobacco Screening. Yes [facility] [employer] 250 DO Work Phone: Patient Educationon [...] provider. Document Revised: 01/19/2022 Document Reviewed: 01/19/2022 [employer] Patient Education ? 2022 [employer] Normal [facility] Urology Office/Clinic Noteon 04-03-2023 Urology Office/Clinic [...] When Contact Information CHARLOTTE BAKER PA-C, URL [address] [address] Additional Instructions: keep appt w/ Patient Education [...] Shoulder replacement. Medications amLODIPine 5 mg Tab [place] Thyroid, Oral, Daily aspirin 81 mg oral [...] vaccine 07/12/ (more content not included)... Normal [employer] [...] Former smoker (V15.82) (Z87.891) Quit 1959' Orders Anticoagulated, Atrial fibrillation, currently in sinus [...] daily Device check as directed per [facility] protocol Chief Complaint NEIL WILCOX is being [...] due to atrial fibrillation, on anticoagulation. 10. JOW2UW7-HHOs at least 5. Has bled score 2 [...] losartan in (more content not included)... Normal [employer] Tobacco Screening.on 023 Fall risk assessment b) One or more fall s in the last year [facility] [employer] 250 DO Work Phone: Tobacco use status [facility] b) No [facility] [employer] 250 DO Work Phone: Patient Educationon 01-24-20 [...] conditioner or fan, if available. ? Apply owjf-dli-utfgkya and prescription medicines only as told by [...] well after activity or exercise. Use a occupational therapy department chair on a cool setting to [...] your skin and with medicines. ? Apply cqsf-zcp-euymixh and prescription medicines only as told by your health care provider. ? Keep all follow-up visits as told by your health care provider. This is important. This information is not intended to replace advice given to you by your health care provider. Make sure you discuss any questions you have with your health care provider. Document Revised: 06/26/2022 Document Reviewed: 06/26/2022 [employer] Patient Education ? 2022 [employer]. Ray [facility] Urology Office/Clinic Noteon 01-23-2023 Urology Office/Clinic [...] E&M of Est. Patient Low 20-29 Min 64801 Orders: Urnls Dip Stick Auto w/o Microscopy POC 66417 Follow-up No qualifying data available f/u [facility] [...] Shoulder replacement. Medications amLODIPine 5 mg Tab [place] Thyroid, Oral, Daily aspirin 81 mg oral [...] Protein Urine Dipstick: 1+ (30 mg/dl) (01/23/23 14:11:) Specific [place] Urine Dipstick: >=1.030 (01/23/23 14::) Urine Appearance Urine Dipstick: Clear (01/23/23::) Urine Color Urine Dipstick: Yellow (01/23/23 14:11:00) Urobilinogen Urine Dipstick: Normal 0.2-1 EU/dl (01/23/23 14:11:) pH Urine Dipstick: 5.5 (01/23/23 14:11:) Normal [facility] Comment on above: Result Comment: Elec tronically Signed By: CHARLOTTE BAKER PA-C.br\Date and Time Signed: 01/23/23 14:45 EDT Patient [...] Follow these instructions at home: ? Take tddv-xme-tiivgjx and prescription medicines only as told by [...] 10/06/2016 Document Revised: 04/23/2019 Document Reviewed: 04/23/2019 [employer] Patient Education ? 2019 [employer]. [facility] Urology Office/Clinic Noteon 01-01-2023 Urology [...] URL [facility] [address] [place] [address]- Additional Instructions: 6 mos with UA Patient [...] Shoulder replacement. Medications amLODIPine 5 mg Tab [place] Thyroid, Oral, Daily aspirin 81 mg oral [...] vaccine 03/ (more content not included)... Normal [facility] Comment on above: Result Comment: Elec tronically Signed By: Trung FERGUSON MD\.br\Date and Time Signed: 01/01/23 13:24 EDT\.br\Electronically Co-Signed By: Jessica Landrum.br\Date and Time Co-Signed: 01/01/23 13:19 EDT Office [...] MG Oral TabletTAKE 1 TABLET AT BEDTIME. Cobbqzfisu-DZIJ-Xznqmjek 50-325-40 MG Oral TabletTAKE 1 TABLET 3 [...] PM Social (more content not included)... Normal [employer] Tobacco Screening.on 023 Fall risk assessment a) No falls within the last year [facility] 250 DO Work Phone: Tobacco use status [facility] b) No [facility] 250 DO Work Phone: Office Visit (Cardiology)on [...] the time of your visit. Loulou Arreguin RN EMERGENCY ROOM in 1 weeks Follow up in 6 [...] MG Oral TabletTAKE 1 TABLET AT BEDTIME. Cfolotrsbf-AWOT-Lxiprtvc 50-325-40 MG Oral TabletTAKE 1 TABLET 3 [...] Caffeine us (more content not included)... Normal [employer] Tobacco Screening.on 023 Adult depression screening assessment No [facility] [employer] 250 DO Work Phone: Fall risk assessment a) No falls within the last year [facility] [employer] 250 DO Work Phone: Tobacco use status [facility] b) No [facility] Agency [employer] 250 DO Work Phone: Office Visit (Cardiology)on [...] in adult Healthy Weight Tips; Status:Complete; Done: [id number] Some eating tips that can help you lose weight.; Status:Complete; Done: 96Zwp3909 SocHx: Former smoker Tobacco Use Screening; Status:Complete; Done: [id number] Chief Complaint NEIL SAUCEDOUBB is being seen for hypertension. Current Meds Medication NameInstruction amLODIPine Besylate 10 MG Oral TabletTAKE 1 TABLET DAILY. Atorvastatin Calcium 40 MG Oral TabletTAKE 1 TABLET AT BEDTIME. Omecntauwy-NSTI-Dwfirwjv 50-325-40 MG Oral TabletTAKE 1 TABLET 3 [...] History Problems Former smoker (V15.82) (Z87.891) Quit s Review of Systems Constitutional: Denies: fever, chills, [...] as previously mentioned Vitals Vital Signs Recorded: 80Nri1842 01:07PMRecorded: 54Kfd1940 01:00PM Systolic Iwfml424, LUE Diastolic Lying84, LUE Systolic Tmbmzsx705, LUE Diastolic Phyvspe39, LUE Systolic Heamwacq725, LUE Diastolic Syqsmkyt14, LUE Heart Rate62, L Radial Height5 ft 9 in Tfpiqc406 lb BMI Csnazgbjzf79.99 kg/m2 BSA Calculated1.96 Physical Exam GENERAL: Well [...] spec) Not detected Normal NOT DETECTED [facility] Comment on above: Result Comment: This test is not yet approved or cleared by the [place] FDA. When there are no FDA-approved or cleared tests available, and other criteria are met, FDA can make tests available under an emergency access mechanism called an Emergency Use Authorization (EUA). The EUA for this test is supported by the [place] of Health and Human Service's (HHS's) declaration [...] By: #### T SH, LIPID, CMP #### [facility] [address] [place], [place] [address] Dr. Oscar Paulino Office Visit (Cardiology)on 08-28-2022 [...] TABLET DAILY Basic Metabolic Panel; Status:Active; Requested for:85Ncb5018; Overweight with body mass index (BMI) of 25 to 25.9 in adult Start: Spironolactone 25 MG Oral Tablet; TAKE 1 TABLET DAILY Healthy Weight Tips; Status:Complete; Done: 69Tdy8435 Some eating tips that can help you lose weight.; Status:Complete; Done: 37Ugk5030 Paroxysmal atrial fibrillation with RVR Start: Eliquis [...] these medications, (more content not included)... Normal [employer] Tobacco Screening.on 022 Fall risk assessment b) One or more fall s in the last year [facility] [employer] 250 DO Work Phone: Tobacco use status [facility] b) No [facility] [employer] 250 DO Work Phone: LIPID PROFILEon 08-25-2022 CHOL-HDL RATIO NORM SEE BELOW Normal [facility] Comment on above: Result Comment: 3.3 - 4.4 LOW RISK 4.4 - 7.1 AVERAGE RISK 7.1 - 11.0 MODERATE RISK >11.0 HIGH RISK Performed By: #### T MANJIT, LIPID, CMP #### [facility] [address] [place] [address] Dr. Oscar Paulino Cholesterol [Mass/Vol] 121 mg/dL Normal <=200 [facility] Comment on above: Performed By: #### T MANJIT, LIPID, CMP #### [facility] [address] [place] [address] Dr. Oscar Paulino Cholesterol in HDL [Mass/Vol] 42 mg/dL Normal 40-60 [facility] Comment on above: Performed By: #### T MANJIT, LIPID, CMP #### [facility] [address] [place] [address] Dr. Oscar Paulino Cholesterol in LDL [Mass/Vol] 66.2 mg/dL Normal [facility] Comment on above: Performed By: #### T SH, LIPID, CMP #### [facility] [address] [place] [address] Dr. Oscar Paulino Cholesterol.total/Chol esterol in HDL [Mass ratio] 2.9 {ratio} Normal [facility] Comment on above: Performed By: #### T SH, LIPID, CMP #### [facility] [address] [place] [address] Dr. Oscar Paulino HDL NORMAL > or = 60 mg/dl - LO W CARDIOVASCULAR RISK <40 mg/dl - HIGH CARDIOVASCULAR RISK Normal [facility] Comment on above: Performed By: #### T SH, LIPID, CMP #### [facility] [address] [place] [address] Dr. Oscar Paulino LDL CALC NORMAL SEE BELOW Normal [facility] Comment on above: Result Comment: <100 mg/dl OPTIMAL 100 - 129 mg/dl NEAR OR ABOVE OPTIMAL 130 - 159 mg/dl BORDERLINE HIGH 160 - 189 mg/dl HIGH >190 mg/dl VERY HIGH Performed By: #### T MANJIT, LIPID, CMP #### [facility] [address] [place] [address] Dr. Oscar Paulino Triglyceride [Mass/Vol] 64 mg/dL Normal <=150 [facility] Comment on above: Performed By: #### T MANJIT, LIPID, CMP #### [facility] [address] [place] [address] Dr. Oscar Paulino VLDL CALC 12.8 mg/dL Normal [facility] Comment on above: Performed By: #### T MANJIT, LIPID, CMP #### [facility] [address] [place] [address] Dr. Oscar Paulino PROF 14(COMP METB)on 022 Albumin [Mass/Vol] 3.6 g/dL Normal 3.4-5.0 [facility] Comment on above: Performed By: #### T SH, LIPID, CMP #### [facility] [address] [place] [address] Dr. Oscar Paulino Albumin/Globulin [Mass ratio] 0.8 {ratio} Normal [facility] Comment on above: Performed By: #### T MANJIT, LIPID, CMP #### [facility] [address] [place] [address] Dr. Oscar Paulino ALP [Catalytic activity/Vol] 92 U/L Normal 46-116 [facility] Comment on above: Performed By: #### T SH, LIPID, CMP #### [facility] [address] [place] [address] Dr. Oscar Paulino ALT [Catalytic activity/Vol] 17 U/L Normal 16-63 [facility] Comment on above: Performed By: #### T SH, LIPID, CMP #### [facility] [address] [place] [address] Dr. Oscar Paulino Anion gap [Moles/Vol] 9.7 mmol/L Normal [facility] Comment on above: Performed By: #### T SH, LIPID, CMP #### [facility] [address] [place] [address] Dr. Oscar Paulino AST [Catalytic activity/Vol] 10 U/L Critically low 15-37 [facility] Comment on above: Performed By: #### T MANJIT, LIPID, CMP #### [facility] [address] [place] [address] Dr. Oscar Paulino Bilirubin [Mass/Vol] 0.3 mg/dL Normal 0.2-1.0 [facility] Comment on above: Performed By: #### T MANJIT, LIPID, CMP #### [facility] [address] [place] [address] Dr. Oscar Paulino Calcium [Mass/Vol] 9.4 mg/dL Normal 8.5-10.1 [facility] Comment on above: Performed By: #### T SH, LIPID, CMP #### [facility] [address] [place] [address] Dr. Oscar Paulino Chloride [Moles/Vol] 102 mmol/L Normal 98-107 [facility] Comment on above: Performed By: #### T SH, LIPID, CMP #### [facility] [address] [place] [address] Dr. Oscar Paulino CO2 [Moles/Vol] 29.1 mmol/L Normal 21.0-32.0 [facility] Comment on above: Performed By: #### T SH, LIPID, CMP #### [facility] [address] [place] [address] Dr. Oscar Paulino Creatinine [Mass/Vol] 1.08 mg/dL Normal 0.70-1.30 [facility] Comment on above: Performed By: #### T SH, LIPID, CMP #### [facility] [address] [address] [address] Oscar Paulino EGFR-AF [place]IZ[place] >60 Normal >=60 [facility] Comment on above: Performed By: #### T SH, LIPID, CMP #### [facility] [address] [address] [address] Oscar Paulino EGFR-NON AF [place] >60 Normal >=60 [facility] Comment on above: Performed By: #### T MANJIT, LIPID, CMP #### [facility] [address] [address] [address] Oscar Paulino Globulin (S) [Mass/Vol] 4.3 g/dL Normal [facility] Comment on above: Performed By: #### T MANJIT, LIPID, CMP #### [facility] [address] [place] [address] Dr. Oscar Paulino Glucose [Mass/Vol] 104 mg/dL Normal 74-106 [facility] Comment on above: Performed By: #### T MANJIT, LIPID, CMP #### [facility] [address] [place] [address] Dr. Oscar Paulino Potassium [Moles/Vol] 3.8 mmol/L Normal 3.5-5.1 [facility] Comment on above: Performed By: #### T MANJIT, LIPID, CMP #### [facility] [address] [place] [address] Dr. Oscar Paulino Protein [Mass/Vol] 7.9 g/dL Normal 6.4-8.2 [facility] Comment on above: Performed By: #### T MANJIT, LIPID, CMP #### [facility] [address] [place] [address] Dr. Oscar Paulino Sodium [Moles/Vol] 137 mmol/L Normal 136-145 [facility] Comment on above: Performed By: #### T MANJIT, LIPID, CMP #### [facility] [address] [place] [address] Dr. Oscar Paulino Urea nitrogen [Mass/Vol] 18.0 mg/dL Normal 7.0-18.0 [facility] Comment on above: Performed By: #### T SH, LIPID, CMP #### [facility] [address] [place] [address] Dr. Oscar Paulino Urea nitrogen/Creatinine [Mass ratio] 16.7 mg/mg Normal [facility] Comment on above: Performed By: #### T SH, LIPID, CMP #### [facility] [address] [place] [address] Dr. Oscar Paulino TSHon 08-25-2022 TSH 2.967 uIU/mL Normal 0.358-3.74 0 [facility] Comment on above: Performed By: #### T SH, LIPID, CMP #### [facility] [address] [place] [address] Dr. Oscar Paulino CBC AUTO DIFFon 08-22-2022 BASO # 0.0 103/ul Normal 0.0-0.1 [facility] Comment on above: Performed By: #### T SH, LIPID, CMP #### [facility] [address] [place] [address] Dr. Oscar Paulino Basophils/100 WBC (Bld) 0.3 % Normal 0.2-2.0 [facility] Comment on above: Performed By: #### T SH, LIPID, CMP #### [facility] [address] [place] [address] Dr. Oscar Paulino EO # 0.3 103/ul Normal 0.0-0.7 [facility] Comment on above: Performed By: #### T SH, LIPID, CMP #### [facility] [address] [place] [address] Dr. Oscar Paulino Eosinophils/100 WBC (Bld) 7.3 % Critically high 0.9-7.0 [facility] Comment on above: Performed By: #### T SH, LIPID, CMP #### [facility] [address] [place] [address] Dr. Oscar Paulino Erythrocyte distribution width (RBC) [Ratio] 11.9 % Normal 11.0-15.0 [facility] Comment on above: Performed By: #### T SH, LIPID, CMP #### [facility] [address] [place] [address] Dr. Oscar Paulino Hematocrit (Bld) [Volume fraction] 33.8 % Critically low 42.0-54.0 [facility] Comment on above: Performed By: #### T SH, LIPID, CMP #### [facility] [address] [place] [address] Dr. Oscar Paulino Hemoglobin (Bld) [Mass/Vol] 12.0 g/dL Critically low 14.0-18.0 [facility] Comment on above: Performed By: #### T SH, LIPID, CMP #### [facility] [address] [place] [address] Dr. Oscar Paulino IG # 0.01 10e3/ul Normal 0.00-0.03 [facility] Comment on above: Performed By: #### T SH, LIPID, CMP #### [facility] [address] [place] [address] Dr. Oscar Paulino IG % 0.3 % Normal 0.0-0.5 [facility] Comment on above: Performed By: #### T SH, LIPID, CMP #### [facility] [address] [place] [address] Dr. Oscar Paulino LYMPH # 1.4 103/ul Normal 1.2-3.8 [facility] Comment on above: Performed By: #### T SH, LIPID, CMP #### [facility] [address] [place] [address] Dr. Oscar Paulino Lymphocytes/100 WBC (Bld) 39.2 % Normal 20.5-60.0 [facility] Comment on above: Performed By: #### T SH, LIPID, CMP #### [facility] [address] [place] [address] Dr. Oscar Paulino MANUAL DIFF REQ NO Normal [facility] Comment on above: Performed By: #### T SH, LIPID, CMP #### [facility] [address] [place] [address] Dr. Oscar Paulino MCH (RBC) [Entitic mass] 36.4 pg Critically high 25.9-34.0 [facility] Comment on above: Performed By: #### T SH, LIPID, CMP #### [facility] [address] [place] [address] Dr. Oscar Paulino MCHC (RBC) [Mass/Vol] 35.5 g/dL Critically high 29.9-35.2 [facility] Comment on above: Performed By: #### T SH, LIPID, CMP #### [facility] [address] [place] [address] Dr. Oscar Paulino MCV (RBC) [Entitic vol] 102.4 fL Critically high 80.0-94.0 [facility] Comment on above: Performed By: #### T SH, LIPID, CMP #### [facility] [address] [place] [address] Dr. Oscar Paulino MONO # 0.2 103/ul Critically low 0.3-0.8 [facility] Comment on above: Performed By: #### T SH, LIPID, CMP #### [facility] [address] [place] [address] Dr. Oscar Paulino Monocytes/100 WBC (Bld) 6.8 % Normal 1.7-12.0 [facility] Comment on above: Performed By: #### T SH, LIPID, CMP #### [facility] [address] [place] [address] Dr. Oscar Paulino NEUT # 1.6 103/ul Normal 1.4-6.5 [facility] Comment on above: Performed By: #### T SH, LIPID, CMP #### [facility] [address] [place] [address] Dr. Oscar Paulino Neutrophils/100 WBC (Bld) 46.1 % Normal 43.0-75.0 [facility] Comment on above: Performed By: #### T SH, LIPID, CMP #### [facility] [address] [place] [address] Dr. Oscar Paulino Platelet mean volume (Bld) [Entitic vol] 8.5 fL Critically low 9.5-13.5 [facility] Comment on above: Performed By: #### T SH, LIPID, CMP #### [facility] [address] [address] [address] Oscar Paulino PLT 191 103/ul Normal 150-450 [facility] Comment on above: Performed By: #### T SH, LIPID, CMP #### [facility] [address] [address] [address] Oscar Paulino RBC 3.30 106/ul Critically low 4.70-6.10 [facility] Comment on above: Performed By: #### T SH, LIPID, CMP #### [facility] [address] [address] [address] Oscar Paulino WBC 3.6 103/ul Critically low 4.0-11.0 [facility] Comment on above: Performed By: #### T SH, LIPID, CMP #### [facility] [address] [place] [address] Dr. Oscar Paulino PROF CHEM 8 (BAS METB)on Anion gap [Moles/Vol] 11.0 mmol/L Normal [facility] Comment on above: Performed By: #### B MP #### [facility] [address] [place] [address] Dr. Oscar Paulino Calcium [Mass/Vol] 9.4 mg/dL Normal 8.5-10.1 [facility] Comment on above: Performed By: #### B MP #### [facility] [address] [place] [address] Dr. Oscar Paulino Chloride [Moles/Vol] 103 mmol/L Normal 98-107 [facility] Comment on above: Performed By: #### B MP #### [facility] [address] [place] [address] Dr. Oscar Paulino CO2 [Moles/Vol] 27.7 mmol/L Normal 21.0-32.0 [facility] Comment on above: Performed By: #### B MP #### [facility] [address] [place] [address] Dr. Oscar Paulino Creatinine [Mass/Vol] 1.07 mg/dL Normal 0.70-1.30 [facility] Comment on above: Performed By: #### B MP #### [facility] [address] [place] [address] Dr. Oscar Paulino EGFR-AF [place] >60 Normal >=60 [facility] Comment on above: Performed By: #### B MP #### [facility] [address] [place] [address] Dr. Oscar Paulino EGFR-NON AF [place] >60 Normal >=60 [facility] Comment on above: Performed By: #### B MP #### [facility] [address] [place] [address] Dr. Oscar Paulino Glucose [Mass/Vol] 99 mg/dL Normal 74-106 [facility] Comment on above: Performed By: #### B MP #### [facility] [address] [place] [address] Dr. Oscar Paulino Potassium [Moles/Vol] 3.7 mmol/L Normal 3.5-5.1 [facility] Comment on above: Performed By: #### B MP #### [facility] [address] [place] [address] Dr. Oscar Paulino Sodium [Moles/Vol] 138 mmol/L Normal 136-145 [facility] Comment on above: Performed By: #### B MP #### [facility] [address] [place] [address] Dr. Oscar Paulino Urea nitrogen [Mass/Vol] 20.0 mg/dL Critically high 7.0-18.0 [facility] Comment on above: Performed By: #### B MP #### [facility] [address] [place] [address] Dr. Oscar Paulino Urea nitrogen/Creatinine [Mass ratio] 18.7 mg/mg Normal [facility] Comment on above: Performed By: #### B MP #### [facility] [address] [place] [address] Dr. Oscar Paulino PROTIMEon 08-22-2022 INR Coag (PPP) [Relative time] 1.06 {INR} Normal [facility] Comment on above: Performed By: #### P T, PTT #### [facility] [address] [place] [address] Dr. Oscar Paulino INR GUIDELINES SEE BELOW Normal [facility] Comment on above: Result Comment: ELYSIA RED INR: 2.0 - 3.0 CONDITIONS NOT LISTED BELOW 2.5 - 3.5 FOR PROSTHETIC HEART VALVE REPLACEMENT 2.5 - 3.5 RECURRENT THROMBOSIS Performed By: #### P T, PTT #### [facility] [address] [place] [address] Dr. Oscar Paulino PT Coag (PPP) [Time] 11.4 s Normal 9.0-11.6 [facility] Comment on above: Performed By: #### P T, PTT #### [facility] [address] [place] [address] Dr. Oscar Paulino PTTon 08-22-2022 aPTT Coag (Bld) [Time] 26.6 s Normal 22.3-36.2 [facility] Comment on above: Performed By: #### P T, PTT #### [facility] [address] [place] [address] Dr. Oscar Paulino [facility] SARS-CoV-2 (COVID-19) RNA KEIKO+probe Ql (Unsp spec) Not detected Normal NOT DETECTED [facility] Comment on above: Result Comment: This test is not yet approved or cleared by the [place] FDA. When there are no FDA-approved or cleared tests available, and other criteria are met, FDA can make tests available under an emergency access mechanism called an Emergency Use Authorization (EUA). The EUA for this test is supported by the [place] of Health and Human Service's (HHS's) declaration [...] SARS-CoV-2. Performed By: #### C VDTB #### [facility] [address] [place] [address] Dr. Oscar Paulino Covid-19 PCR ([facility])on SARS-CoV-2 (COVID-19) RNA KEIKO+probe Ql (Unsp spec) Not detected Normal NOT DETECTED [facility] Comment on above: Result Comment: This test is not yet approved or cleared by the [place] FDA. When there are no FDA-approved or cleared tests available, and other criteria are met, FDA can make tests available under an emergency access mechanism called an Emergency Use Authorization (EUA). The EUA for this test is supported by the [place] of Health and Human Service's (HHS's) declaration [...] SARS-CoV-2. Performed By: #### C VDTB #### [facility] [address] [place] [address] Dr. Oscar Paulino CBC AUTO DIFFon 06-28-2022 BASO # 0.0 103/ul Normal 0.0-0.1 [facility] Comment on above: Performed By: #### T SH, LIPID, CMP #### [facility] [address] [place] [address] Dr. Oscar Paulino Basophils/100 WBC (Bld) 0.4 % Normal 0.2-2.0 [facility] Comment on above: Performed By: #### T SH, LIPID, CMP #### [facility] [address] [place] [address] Dr. Oscar Paulino EO # 0.2 103/ul Normal 0.0-0.7 [facility] Comment on above: Performed By: #### T SH, LIPID, CMP #### [facility] [address] [place] [address] Dr. Oscar Paulino Eosinophils/100 WBC (Bld) 7.5 % Critically high 0.9-7.0 [facility] Comment on above: Performed By: #### T SH, LIPID, CMP #### [facility] [address] [place] [address] Dr. Oscar Paulino Erythrocyte distribution width (RBC) [Ratio] 12.3 % Normal 11.0-15.0 [facility] Comment on above: Performed By: #### T SH LIPID, CMP #### [facility] [address] [place] [address] Dr. Oscar Paulino Hematocrit (Bld) [Volume fraction] 34.0 % Critically low 42.0-54.0 [facility] Comment on above: Performed By: #### T SH LIPID, CMP #### [facility] [address] [place] [address] Dr. Oscar Paulino Hemoglobin (Bld) [Mass/Vol] 11.6 g/dL Critically low 14.0-18.0 [facility] Comment on above: Performed By: #### T MANJIT LIPID, CMP #### [facility] [address] [place] [address] Dr. Oscar Paulino IG # 0.00 10e3/ul Normal 0.00-0.03 [facility] Comment on above: Performed By: #### T SH, LIPID, CMP #### [facility] [address] [place] [address] Dr. Oscar Paulino IG % 0.0 % Normal 0.0-0.5 [facility] Comment on above: Performed By: #### T SH, LIPID, CMP #### [facility] [address] [place] [address] Dr. Oscar Paulino LYMPH # 1.0 103/ul Critically low 1.2-3.8 [facility] Comment on above: Performed By: #### T SH, LIPID, CMP #### [facility] [address] [address] [address] Oscar Paulino Lymphocytes/100 WBC (Bld) 40.1 % Normal 20.5-60.0 [facility] Comment on above: Performed By: #### T SH, LIPID, CMP #### [facility] [address] [address] [address] Oscar Paulino MANUAL DIFF REQ NO Normal [facility] Comment on above: Performed By: #### T SH, LIPID, CMP #### [facility] [address] [place] [address] Dr. Oscar Paulino MCH (RBC) [Entitic mass] 35.7 pg Critically high 25.9-34.0 [facility] Comment on above: Performed By: #### T SH, LIPID, CMP #### [facility] [address] [place] [address] Dr. Oscar Paulino MCHC (RBC) [Mass/Vol] 34.1 g/dL Normal 29.9-35.2 [facility] Comment on above: Performed By: #### T SH, LIPID, CMP #### [facility] [address] [place] [address] Dr. Oscar Paulino MCV (RBC) [Entitic vol] 104.6 fL Critically high 80.0-94.0 [facility] Comment on above: Performed By: #### T SH, LIPID, CMP #### [facility] [address] [place] [address] Dr. Oscar Paulino MONO # 0.2 103/ul Critically low 0.3-0.8 [facility] Comment on above: Performed By: #### T SH, LIPID, CMP #### [facility] [address] [place] [address] Dr. Oscar Paulino Monocytes/100 WBC (Bld) 6.7 % Normal 1.7-12.0 [facility] Comment on above: Performed By: #### T SH, LIPID, CMP #### [facility] [address] [place] [address] Dr. Oscar Paulino NEUT # 1.1 103/ul Critically low 1.4-6.5 [facility] Comment on above: Performed By: #### T SH, LIPID, CMP #### [facility] [address] [place] [address] Dr. Oscar Paulino Neutrophils/100 WBC (Bld) 45.3 % Normal 43.0-75.0 [facility] Comment on above: Performed By: #### T SH, LIPID, CMP #### [facility] [address] [place] [address] Dr. Oscar Paulino Platelet mean volume (Bld) [Entitic vol] 8.4 fL Critically low 9.5-13.5 [facility] Comment on above: Performed By: #### T SH, LIPID, CMP #### [facility] [address] [place] [address] Dr. Oscar Paulino PLT 164 103/ul Normal 150-450 [facility] Comment on above: Performed By: #### T SH, LIPID, CMP #### [facility] [address] [place] [address] Dr. Oscar Paulino RBC 3.25 106/ul Critically low 4.70-6.10 [facility] Comment on above: Performed By: #### T SH, LIPID, CMP #### [facility] [address] [place] [address] Dr. Oscar Paulino WBC 2.5 103/ul Critically low 4.0-11.0 [facility] Comment on above: Performed By: #### T SH, LIPID, CMP #### [facility] [address] [place] [address] Dr. Oscar Paulino PROF CHEM 8 (BAS METB)on Anion gap [Moles/Vol] 9.9 mmol/L Normal [facility] Comment on above: Performed By: #### B MP #### [facility] [address] [place] [address] Dr. Oscar Paulino Calcium [Mass/Vol] 9.4 mg/dL Normal 8.5-10.1 [facility] Comment on above: Performed By: #### B MP #### [facility] [address] [place] [address] Dr. Oscar Paulino Chloride [Moles/Vol] 105 mmol/L Normal 98-107 [facility] Comment on above: Performed By: #### B MP #### [facility] [address] [address] [address] Oscar Paulino CO2 [Moles/Vol] 27.3 mmol/L Normal 21.0-32.0 [facility] Comment on above: Performed By: #### B MP #### [facility] [address] [address] [address] Oscar Paulino Creatinine [Mass/Vol] 1.05 mg/dL Normal 0.70-1.30 [facility] Comment on above: Performed By: #### B MP #### [facility] [address] [place] [address] Dr. Oscar Paulino EGFR-AF [place] >60 Normal >=60 [facility] Comment on above: Performed By: #### B MP #### [facility] [address] [place] [address] Dr. Oscar Paulino EGFR-NON AF [place] >60 Normal >=60 [facility] Comment on above: Performed By: #### B MP #### [facility] [address] [address] [address] Oscar Paulino Glucose [Mass/Vol] 105 mg/dL Normal 74-106 [facility] Comment on above: Performed By: #### B MP #### [facility] [address] [place] [address] Dr. Oscar Paulino Potassium [Moles/Vol] 4.2 mmol/L Normal 3.5-5.1 [facility] Comment on above: Performed By: #### B MP #### [facility] [address] [address] [address] Oscar Paulino Sodium [Moles/Vol] 138 mmol/L Normal 136-145 [facility] Comment on above: Performed By: #### B MP #### [facility] [address] [place] [address] Dr. Oscar Paulino Urea nitrogen [Mass/Vol] 15.0 mg/dL Normal 7.0-18.0 [facility] Comment on above: Performed By: #### B MP #### [facility] [address] [address] [address] Oscar Paulino Urea nitrogen/Creatinine [Mass ratio] 14.3 mg/mg Normal [facility] Comment on above: Performed By: #### B MP #### [facility] [address] [address] [address] Oscar Paulino PROTIMEon 06-28-2022 INR Coag (PPP) [Relative time] 1.03 {INR} Normal [facility] Comment on above: Performed By: #### T SH, LIPID, CMP #### [facility] [address] [address] [address] Oscar Paulino INR GUIDELINES SEE BELOW Normal [facility] Comment on above: Result Comment: ELYSIA RED INR: 2.0 - 3.0 CONDITIONS NOT LISTED BELOW 2.5 - 3.5 FOR PROSTHETIC HEART VALVE REPLACEMENT 2.5 - 3.5 RECURRENT THROMBOSIS Performed By: #### T SH, LIPID, CMP #### [facility] [address] [place] [address] Dr. Oscar Paulino PT Coag (PPP) [Time] 11.1 s Normal 9.0-11.6 [facility] Comment on above: Performed By: #### T SH, LIPID, CMP #### [facility] [address] [address] [address] Oscar Paulino PTTon 06-28-2022 aPTT Coag (Bld) [Time] 26.2 s Normal 22.3-36.2 [facility] Comment on above: Performed By: #### T SH, LIPID, CMP #### [facility] [address] [place] [address] Dr. Oscar Paulino Tobacco Screening.on 022 Adult depression screening assessment Yes [facility] [employer] 250 DO Work Phone: Adult depression screening assessment No [facility] [employer] 250 DO Work Phone: Fall risk assessment a) No falls within the last year [facility] 250 DO Work Phone: Tobacco use status [facility] b) No -[facility] jaun 250 DO Work Phone: Tobacco Screening. 1-Several days [facility]un 250 DO Work Phone: Tobacco Screening. 0-Not at all [facility]un 250 DO Work Phone: Tobacco Screening. 2-More than half the days [facility]-Sandalessandra jaun 250 DO Work Phone: Tobacco Screening. Somewhat Difficult [facility]un 250 DO Work Phone: CT STR[facility] CT[facility]on [facility]2021 [facility] CARDIAC STRESS/REST INJECTION Patient Name: NEIL WILCOX STUDY: MYOCARDIAL PERFUSION STRESS TEST WITH LEXISCAN Performing facility: [facility], [address] [place] [address], [address], [place], [place] [address] Provider: Loulou Arreguin RN, BRICK [employer] PCP: Dr. Paul Cooney Supervising provider: Erick Wise DO, [facility] INDICATION: HTN Fatigue HISTORY: Gender: M; Age: 75 y/o ; Height: 0 cm; Weight: 0 kg. High Cholesterol; HTN; Fatigue; TIA Vertigo Denies smoking. COMPARISON: No comparison. ACCESSION NUMBER(S): [id number]; [id number]; [id number] ORDERING CLINICIAN: LOULOU ARREGUIN TECHNIQUE: ONE DAY [...] Electronically signed by: MATTI MIDDLETON MD Normal [facility] Falls Risk Screeningon 08-31 Fall risk assessment a) No falls within the last year [facility]un 250 DO Work Phone: Tobacco use status [facility] b) No [facility]u [employer]un 250 DO Work Phone: Tobacco Screening.on Fall risk assessment a) No falls within the last year [facility]u [employer]un 250 DO Work Phone: Tobacco use status [facility] b) No [facility] 250 DO Work Phone: BASIC METABOLIC PANELon 03-24 Calcium [Mass/Vol] 8.9 mg/dL Normal 8.5-10.4 [facility] Comment on above: Result Comment: RESU LT CHECKED Anion gap [Moles/Vol] 9 mmol/L Normal 0-19 [facility] Chloride [Moles/Vol] 104 mmol/L Normal 97-107 [facility] CO2 [Moles/Vol] 24 mmol/L Normal 24-31 [facility] Creatinine [Mass/Vol] 0.9 mg/dL Normal 0.4-1.6 [facility] ESTIMATED GFR 88 mL/min/1.73 m2 Normal [facility] Comment on above: Result Comment: GFR ml/min/1.73m2 Stage ----- 90 1 60-89 2 30-59 3 15-29 4 <15 5 For -Americans, multiply EGFR result by 1.210 Calculation not validated for patients under 18 years of age. Performed at [facility] [id number] [facility] [address] Glucose [Mass/Vol] 134 mg/dL High 65-99 [place] [facility] [facility] Potassium [Moles/Vol] 3.9 mmol/L Normal 3.4-5.1 [facility] Sodium [Moles/Vol] 137 mmol/L Normal 133-145 [facility] Urea nitrogen [Mass/Vol] 13 mg/dL Normal 8-25 [facility] Urea nitrogen/Creatinine [Mass ratio] 14.4 mg/mg Normal 8-21 [facility] CBC with Diffon 04-06-2021 AB IMMATURE NEUT 0.00 K/UL Normal 0.0-0.1 [facility] ABS BASO 0.00 K/UL Normal 0.00-0.22 [facility] ABS EOS 0.02 K/UL Normal 0-0.45 [facility] ABS NEUTROPHILS 3.73 K/UL Normal 1.8-7.7 [facility] ABS.NEUT.CALCULATED 3.73 K/UL Normal [facility] Comment on above: Result Comment: Perf [place]med [place] [facility] [address] [address] [facility] [address] Basophils/100 WBC (Bld) 0.00 % Normal 0-1 [facility] DIFF TYPE AUTO DIFF Normal [facility] Eosinophils/100 WBC (Bld) 0.40 % Normal 0-3 [facility] Erythrocyte distribution width (RBC) [Ratio] 11.6 % Low 11.7-15.0 [facility] Hematocrit (Bld) [Volume fraction] 29.6 % Low 41-50 [facility] Hemoglobin (Bld) [Mass/Vol] 10.0 g/dL Low 13.5-16.5 [facility] Lymphocytes (Bld) [#/Vol] 0.97 10*3/uL Low 1.2-3.2 [facility] Lymphocytes/100 WBC (Bld) 19.10 % Low 20-40 [facility] MCH (RBC) [Entitic mass] 35.5 pg High 26-34 [facility] MCHC 33.8 % Normal 31-37 [facility] MCV (RBC) [Entitic vol] 105.0 fL High 80-100 [facility] MEAN PLT VOL 8.4 CU Normal 7.0-12.6 [facility] Monocytes (Bld) [#/Vol] 0.35 10*3/uL Normal 0-0.8 [facility] Monocytes/100 WBC (Bld) 6.90 % Normal 0-8 [facility] Neutrophils/100 WBC (Bld) 0.00 % Normal 0.0-1.0 [facility] Neutrophils/100 WBC (Bld) 73.60 % High 50-70 [facility] Platelets (Bld) [#/Vol] 115 10*3/uL Low 150-450 [facility] RBC (Bld) [#/Vol] 2.82 10*6/uL Low 4.5-5.5 [facility] RDW-SD 44.8 FL Normal 37.0-54.0 [facility] WBC (Bld) [#/Vol] 5.1 10*3/uL Normal 4.5-11.0 [facility] PROTHROMBIN TIMEon INR Coag (PPP) [Relative time] 1.0 {INR} Normal 0.86-1.16 [facility] Comment on above: Result Comment: INR Theraputic Range: 2.0-3.5 Performed at [address] [address] PT Coag (PPP) [Time] 11.3 s Normal 9.3-12.7 [facility] ANTICOAGULANT INFORMATION NOT REPO RTED TO LABORATORY Normal [facility] PTTon 04-06-2021 aPTT Coag (Bld) [Time] 21.9 s Low 22.0-32.[address] [facility] Comment on above: Result Comment: Perf ormed at [address] [address] CBC with Diffon 04-01-2021 AB IMMATURE NEUT 0.00 K/UL Normal 0.0-0.1 [facility] ABS BASO 0.02 K/UL Normal 0.00-0.22 [facility] ABS EOS 0.19 K/UL Normal 0-0.45 [facility] ABS NEUTROPHILS 1.56 K/UL Low 1.8-7.7 [facility] ABS.NEUT.CALCULATED 1.56 K/UL Normal [facility] Comment on above: Result Comment: Perf ormed at [address] [address] Basophils/100 WBC (Bld) 0.60 % Normal 0-1 [facility] DIFF TYPE AUTO DIFF Normal [facility] Eosinophils/100 WBC (Bld) 5.30 % High 0-3 [facility] Erythrocyte distribution width (RBC) [Ratio] 11.6 % Low 11.7-15.0 [facility] Hematocrit (Bld) [Volume fraction] 40.9 % Low 41-50 [facility] Hemoglobin (Bld) [Mass/Vol] 13.4 g/dL Low 13.5-16.5 [facility] Lymphocytes (Bld) [#/Vol] 1.44 10*3/uL Normal 1.2-3.2 [facility] Lymphocytes/100 WBC (Bld) 40.30 % High 20-40 [facility] MCH (RBC) [Entitic mass] 35.2 pg High 26-34 [facility] MCHC 32.8 % Normal 31-37 [facility] MCV (RBC) [Entitic vol] 107.3 fL High 80-100 [facility] MEAN PLT VOL 8.5 CU Normal 7.0-12.6 [facility] Monocytes (Bld) [#/Vol] 0.36 10*3/uL Normal 0-0.8 [facility] Monocytes/100 WBC (Bld) 10.10 % High 0-8 [facility] Neutrophils/100 WBC (Bld) 0.00 % Normal 0.0-1.0 [facility] Neutrophils/100 WBC (Bld) 43.70 % Low 50-70 [facility] Platelets (Bld) [#/Vol] 149 10*3/uL Low 150-450 [facility] RBC (Bld) [#/Vol] 3.81 10*6/uL Low 4.5-5.5 [facility] RDW-SD 46.3 FL Normal 37.0-54.0 [facility] WBC (Bld) [#/Vol] 3.6 10*3/uL Low 4.5-11.0 [facility] COMPREHENSIVE METABOLIC PANE Melvin 04-01-2021 Albumin [Mass/Vol] 4.1 g/dL Normal 3.5-5.0 [facility] Albumin/Globulin [Mass ratio] 1.2 {ratio} Low 1.5-3.0 [facility] ALP [Catalytic activity/Vol] 77 U/L Normal 35-125 [facility] ALT [Catalytic activity/Vol] 16 U/L Normal 5-40 [facility] Anion gap [Moles/Vol] 10 mmol/L Normal 0-19 [facility] AST [Catalytic activity/Vol] 18 U/L Normal 5-40 [facility] Bilirubin [Mass/Vol] 0.3 mg/dL Normal 0.1-1.2 [facility] Calcium [Mass/Vol] 10.0 mg/dL Normal 8.5-10.4 [facility] Chloride [Moles/Vol] 104 mmol/L Normal 97-107 [facility] CO2 [Moles/Vol] 27 mmol/L Normal 24-31 [facility] Creatinine [Mass/Vol] 0.9 mg/dL Normal 0.4-1.6 [facility] ESTIMATED GFR 88 mL/min/1.73 m2 Normal [facility] Comment on above: Result Comment: GFR ml/min/1.73m2 Stage ----- 90 1 60-89 2 30-59 3 15-29 4 <15 5 For -Americans, multiply EGFR result by 1.210 Calculation not validated for patients under 18 years of age. Performed at [facility] [address] [facility] [address] Globulin (S) [Mass/Vol] 3.3 g/dL Normal 1.9-3.7 [facility] Glucose [Mass/Vol] 95 mg/dL Normal 65-99 [facility] Potassium [Moles/Vol] 4.3 mmol/L Normal 3.4-5.1 [facility] Protein [Mass/Vol] 7.4 g/dL Normal 5.9-7.9 [facility] Sodium [Moles/Vol] 141 mmol/L Normal 133-145 [facility] Urea nitrogen [Mass/Vol] 16 mg/dL Normal 8-25 [facility] Urea nitrogen/Creatinine [Mass ratio] 17.8 mg/mg Normal 8-21 [facility] SARS-CoV-2,INFLUENZA A/B NUC LEIC ACID TESTon 04-01-2021 EUA DISCLAIMER Normal [facility] Comment on above: Result Comment: This [...] is terminated or revoked sooner. Performed at [place] [address] FLU A by PCR Negative [facility] FLU B by PCR Negative [facility] SARS-CoV-2 (COVID-19) RNA KEIKO+probe Ql (Unsp spec) Negative Normal NEG [facility] TYPE AND SCREENon 04-01-2021 TYPE AND SCREEN BLOOD COMPONENT TYPE - RED CELL GROUP Performed at [place] [id number] UNITS ORDERED - 0 Performed at [place] [id number] SPECIMEN EXPIRATION - 04/08/2021 Performed at [address] [address] ABO/RH(D) - A POSITIVE Performed at [address] [address] ANTIBODY SCREEN - NEGATIVE Performed at [address] [address] ARM BAND NUMBER - [id number] Performed at [address] [address] SURGERY DATE - [id number] Performed at [address] [address] TEST ORDERED - TYPE AND SCREEN Performed at [place] [id number] PT TRANSFUSION HISTORY - BLOOD BANK RECORD SEARCH COMPLETED NO PREVIOUS RECORD NO PREVIOUS TRANSFUSIONS IN LIFETIME Performed at [address] [address] [facility] Comment on above: Performed By: #### [facility] #### [facility] [address] [address] UA-REFLEX TO CULTUREon 04-01 RBC NONE SEEN Normal 0-3 [facility] Urinalysis dipstick W Reflex Microscopic panel (U) MANUAL MICROSCOPIC URINES Normal [facility] WBC NONE SEEN Normal 0-3 [facility] OTHER Normal [facility] Comment on above: Result Comment: MUCO US Performed at [place] [id number] Bacteria identified Cx Nom (U) CULTURE NOT INDICATED Normal [facility] Comment on above: Result Comment: CULT URE NOT INDICATED Performed at [place] [id number] BILI Negative Normal NEG [facility] Clarity (U) CLEAR Normal [facility] Color (U) YELLOW Normal [facility] GLUC Negative Normal NEG [facility] Hemoglobin Ql (U) Negative Normal NEG [facility] KET Negative Normal NEG [facility] LEUK Negative Normal NEG [facility] NIT Negative Normal NEG [facility] pH (U) 6.5 [pH] Normal 4.6-8.0 [facility] PROT TRACE Abnormal NEG [facility] SP GRAV,URINE 1.025 Normal 1.005-1.03 0 [facility] URO 0.2 MG/DL Normal 0-1.0 [facility] Basophils Auto (Bld) [#/Vol] on 02-07-2021 Basophils (Bld) [#/Vol] 0.0 10*3/uL 0.0-0.2 [facility] Basophils/100 WBC Auto (Bld) on 02-07-2021 Basophils/100 WBC (Bld) 0.2 % [facility] Blood hemoglobin measurement (mass/volume)on 02-07-2021 Hemoglobin (Bld) [Mass/Vol] 12.8 g/dL 13.0-17.0 [facility] Blood leukocytes automated c ount (number/volume)on 02-07-2021 WBC (Bld) [#/Vol] 3.5 10*3/uL 4.5-11.0 [facility] Body fluid albumin measureme nt (mass/volume)on 02-07-2021 Albumin (Body fld) [Mass/Vol] 3.7 g/dL 3.2-5.5 [facility] Cholesterol [Mass/volume] in Serum or Plasmaon 02-07-2021 Cholesterol [Mass/Vol] 127 mg/dL 140-200 [facility] Comment on above: Chol less than 200 m g/dl low riskChol 201-239 mg/dl borderline riskChol 240 mg/dl and greater high risk Cholesterol in LDL Calc [Mas s/Vol]on 02-07-2021 Cholesterol in LDL [Mass/Vol] 66 mg/dL 0-100 [facility] Comment on above: LDL ATP III CLASSIFI CATIONLDL less than 100 mg/dL OptimalLDL 100-129 mg/dL Near or above optimalLDL 130-159 mg/dL Borderline highLDL 160-189 mg/dL HighLDL greater than 189 mg/dL Very high Cholesterol in VLDL Calc [Ma ss/Vol]on 02-07-2021 Cholesterol in VLDL [Mass/Vol] 10 mg/dL [facility] Creatinine and Glomerular fi ltration rate.predicted panel (S/P/Bld)on 02-07-2021 Creatinine [Mass/Vol] 0.95 mg/dL 0.64-1.[address] [facility] Eosinophils Auto (Bld) [#/Vo l]on 02-07-2021 Eosinophils (Bld) [#/Vol] 0.2 10*3/uL 0.0-0.45 [facility] Eosinophils/100 WBC Auto (Bl d)on 02-07-2021 Eosinophils/100 WBC (Bld) 5.2 % [facility] Erythrocyte distribution wid th Auto (RBC) [Ratio]on 02-07-2021 Erythrocyte distribution width (RBC) [Ratio] 13.0 % 12.0-14.8 [facility] Estimated glomerular filtrat ion rate (GFR) non- Americanon 02-07-2021 GFR/1.73 sq M.predicted among non-blacks MDRD (S/P/Bld) [Vol rate/Area] > 60 mL/Min [facility] Globulin Calc (S) [Mass/Vol] on 02-07-2021 Globulin (S) [Mass/Vol] 3.6 g/dL [facility] Hematocrit Auto (Bld) [Volum e fraction]on 02-07-2021 Hematocrit (Bld) [Volume fraction] 38.4 % 38.8-50.0 [facility] Laboratory - Hematology and Cell countson 02-07-2021 Nucleated RBC/100 WBC (Bld) [Ratio] 0.1 % 0-0.5 [facility] Lymphocytes Auto (Bld) [#/Vo l]on 02-07-2021 Lymphocytes (Bld) [#/Vol] 1.2 10*3/uL 1.00-4.8 [facility] Lymphocytes/100 WBC Auto (Bl d)on 02-07-2021 Lymphocytes/100 WBC (Bld) 33.5 % [facility] MCH Auto (RBC) [Entitic mass ]on 02-07-2021 MCH (RBC) [Entitic mass] 35.8 pg 27.5-35.2 [facility] MCHC Auto (RBC) [Mass/Vol]on 02-07-2021 MCHC (RBC) [Mass/Vol] 33.4 g/dL 32.5-35.[address] [facility] MCV Auto (RBC) [Entitic vol] on 02-07-2021 MCV (RBC) [Entitic vol] 107.1 fL 83.5-101 [facility] Monocytes Auto (Bld) [#/Vol] on 02-07-2021 Monocytes (Bld) [#/Vol] 0.4 10*3/uL 0.0-0.8 [facility] Monocytes/100 WBC Auto (Bld) on 02-07-2021 Monocytes/100 WBC (Bld) 10.3 % [facility] Neutrophils Auto (Bld) [#/Vo l]on 02-07-2021 Neutrophils (Bld) [#/Vol] 1.8 10*3/uL 1.8-7.7 [facility] Neutrophils/100 WBC Auto (Bl d)on 02-07-2021 Neutrophils/100 WBC (Bld) 50.8 % [facility] No Panel Informationon 02-07 Estimated GFR () > 60 mL/Min [facility] Comment on above: GFR estimated refere nce range: According to KDOQI guidelines, <60 ml/min/1.73m2 is sufficient to diagnose a patient with chronic kidney disease. Pharmacy Creatinine Clearance (Chem N/A [facility] Platelet mean volume Auto (B ld) [Entitic vol]on 02-07-2021 Platelet mean volume (Bld) [Entitic vol] 6.7 fL 6.6-10.1 [facility] Platelets Auto (Bld) [#/Vol] on 02-07-2021 Platelets (Bld) [#/Vol] 220 10*3/uL 150-450 [facility] Protein [Mass/volume] in Ser um or Plasmaon 02-07-2021 Protein [Mass/Vol] 7.3 g/dL 6.1-7.9 [facility] RBC Auto (Bld) [#/Vol]on RBC (Bld) [#/Vol] 3.59 10*6/uL 3.90-5.60 [facility] Serum or plasma alanine huntley otransferase measurement without P-5'-P (enzymatic activion 02-07-2021 ALT No additional P-5'-P [Catalytic activity/Vol] 13 U/L 10-60 [facility] Serum or plasma albumin/glob ulin mass ratioon 02-07-2021 Albumin/Globulin [Mass ratio] 1.0 {ratio} [facility] Serum or plasma alkaline latoya sphatase measurement (enzymatic activity/volume)on 02-07-2021 ALP [Catalytic activity/Vol] 71 U/L 32-92 [facility] Serum or plasma aspartate am inotransferase measurement (enzymatic activity/volume)on 02-07-2021 AST [Catalytic activity/Vol] 13 U/L 10-42 [facility] Serum or plasma calcium ilana urement (mass/volume)on 02-07-2021 Calcium [Mass/Vol] 9.7 mg/dL 8.2-10.2 [facility] Serum or plasma chloride rishabh surement (moles/volume)on 02-07-2021 Chloride [Moles/Vol] 102 mmol/L 95-114 [facility] Serum or plasma glucose ilana urement (mass/volume)on 02-07-2021 Glucose [Mass/Vol] 95 mg/dL 70-100 [facility] Comment on above: ADA recommended refe rence rangeRandom Glucose Reference Range is dependent on time and content of last meal. Glucose of more than 200 mg/dL in a nonstressed, ambulatory subject supports the diagnosis of Diabetes Mellitus. Serum or plasma high density lipoprotein (HDL) cholesterol measurementon 02-07-2021 Cholesterol in HDL [Mass/Vol] 51 mg/dL 29-71 [facility] Comment on above: HDL CHOL ATP-III CLA SSIFICATION Cardiovascular RiskHDL > or equal to 60 mg/dL LOWHDL < 40 mg/dL HIGH Serum or plasma potassium me asurement (moles/volume)on 02-07-2021 Potassium [Moles/Vol] 4.5 mmol/L 3.5-5.[address] [facility] Serum or plasma sodium measu rement (moles/volume)on 02-07-2021 Sodium [Moles/Vol] 137 mmol/L 136-146 [facility] Serum or plasma total biliru bin measurement (mass/volume)on 02-07-2021 Bilirubin [Mass/Vol] 0.6 mg/dL 0.3-1.2 [facility] Serum or plasma total carbon dioxide measurement (moles/volume)on 02-07-2021 CO2 [Moles/Vol] 24.7 mmol/L 22.0-30.0 [facility] Serum or plasma total choles terol/high density lipoprotein (HDL) cholesterol mass noni 02-07-2021 Cholesterol.total/Chol esterol in HDL [Mass ratio] 2.5 {ratio} [facility] Serum or plasma urea nitroge n measurement (mass/volume)on 02-07-2021 Urea nitrogen [Mass/Vol] 19 mg/dL 9 [facility] TSH DL <= 0.005 mIU/L Qnon 0 02-07-2021 TSH Qn 1.17 m[IU]/L 0.45-5.33 [facility] Thyroxine (T4) free [Mass/vo lume] in Serum or Plasmaon 02-07-2021 Free T4 [Mass/Vol] 0.88 ng/dL 0.61-1.12 [facility] Triglyceride [Mass/volume] i n Serum or Plasmaon 02-07-2021 Triglyceride [Mass/Vol] 52 mg/dL 35-149 [facility] Comment on above: TRIG ATP III CLASSIF ICATIONTRIG less than 150 mg/dL NormalTRIG 150-199 mg/dL Borderline highTRIG 200-500 mg/dL High TRIG greater than 500 mg/dL Very highStandard traceable to the Center for Disease Conrtrol and Prevention (CDC) test method. WOUND CULTURE-TISSUEon 12-22 WOUND CULTURE-TISSUE Specimen source XXX : SHOULDER RIGHT Performed at [facility] [address] [facility] [address] Service Cmnt XXX-Imp: HOLD FOR 2 WEEKS Microscopic observation: NO ORGANISMS SEEN 1+ WBC Bacteria identified: ANAEROBIC GRAM POSITIVE BACILLI ONE COLONY MOST CLOSELY RESEMBLING CUTIBACTERIUM (PROPIONIBACTERIUM) ACNES Performed at [facility],[id number] [place] [id number] : FINAL 12/22/2020 [facility] Comment on above: Performed By: #### [facility] #### Main Laboratory [facility] [address] [place] [address] CBC with Diffon 12-17-2020 AB IMMATURE NEUT 0.00 K/UL Normal 0.0-0.1 [facility] ABS BASO 0.00 K/UL Normal 0.00-0.22 [facility] ABS EOS 0.00 K/UL Normal 0-0.45 [facility] ABS NEUTROPHILS 2.47 K/UL Normal 1.8-7.7 [facility] ABS.NEUT.CALCULATED 2.47 K/UL Normal [facility] Comment on above: Result Comment: Perf ormed at [facility] [address] [facility] [address] Basophils/100 WBC (Bld) 0.00 % Normal 0-1 [facility] DIFF TYPE AUTO DIFF Normal [facility] Eosinophils/100 WBC (Bld) 0.00 % Normal 0-3 [facility] Erythrocyte distribution width (RBC) [Ratio] 12.1 % Normal 11.7-15.0 [facility] Hematocrit (Bld) [Volume fraction] 30.6 % Low 41-50 [facility] Hemoglobin (Bld) [Mass/Vol] 10.4 g/dL Low 13.5-16.5 [facility] Lymphocytes (Bld) [#/Vol] 0.75 10*3/uL Low 1.2-3.2 [facility] Lymphocytes/100 WBC (Bld) 20.90 % Normal 20-40 [facility] MCH (RBC) [Entitic mass] 36.2 pg High 26-34 [facility] MCHC 34.0 % Normal 31-37 [facility] MCV (RBC) [Entitic vol] 106.6 fL High 80-100 [facility] MEAN PLT VOL 8.4 CU Normal 7.0-12.6 [facility] Monocytes (Bld) [#/Vol] 0.37 10*3/uL Normal 0-0.8 [facility] Monocytes/100 WBC (Bld) 10.30 % High 0-8 [facility] Neutrophils/100 WBC (Bld) 0.00 % Normal 0.0-1.0 [facility] Neutrophils/100 WBC (Bld) 68.80 % Normal 50-70 [facility] Platelets (Bld) [#/Vol] 122 10*3/uL Low 150-450 [facility] RBC (Bld) [#/Vol] 2.87 10*6/uL Low 4.5-5.5 [facility] RDW-SD 47.8 FL Normal 37.0-54.0 [facility] WBC (Bld) [#/Vol] 3.6 10*3/uL Low 4.5-11.0 [facility] COMPREHENSIVE METABOLIC PANE Melvin 12-17-2020 Albumin [Mass/Vol] 3.5 g/dL Normal 3.5-5.0 [facility] Albumin/Globulin [Mass ratio] 1.3 {ratio} Low 1.5-3.0 [facility] ALP [Catalytic activity/Vol] 63 U/L Normal 35-125 [facility] ALT [Catalytic activity/Vol] 10 U/L Normal 5-40 [facility] Comment on above: Result Comment: Perf ormed at [facility] [address] [address] [facility] [address] Anion gap [Moles/Vol] 11 mmol/L Normal 0-19 [facility] AST [Catalytic activity/Vol] 15 U/L Normal 5-40 [facility] Bilirubin [Mass/Vol] 0.7 mg/dL Normal 0.1-1.2 [facility] Calcium [Mass/Vol] 9.0 mg/dL Normal 8.5-10.4 [facility] Chloride [Moles/Vol] 99 mmol/L Normal 97-107 [facility] CO2 [Moles/Vol] 26 mmol/L Normal 24-31 [facility] Creatinine [Mass/Vol] 0.9 mg/dL Normal 0.4-1.6 [facility] Globulin (S) [Mass/Vol] 2.7 g/dL Normal 1.9-3.7 [facility] Glucose [Mass/Vol] 129 mg/dL High 65-99 [facility] Potassium [Moles/Vol] 3.8 mmol/L Normal 3.4-5.1 [facility] Protein [Mass/Vol] 6.2 g/dL Normal 5.9-7.9 [facility] Sodium [Moles/Vol] 136 mmol/L Normal 133-145 [facility] Urea nitrogen [Mass/Vol] 13 mg/dL Normal 8-25 [facility] Urea nitrogen/Creatinine [Mass ratio] 14.4 mg/mg Normal 8-21 [facility] FREE T4on 03-18-2021 Free T4 [Mass/Vol] 1.2 ng/dL Normal 0.9-1.7 [facility] Comment on above: Result Comment: Perf ormed at [address] [address] Performed By: #### T [facility] #### Main Laboratory [address] [address] CBC with Diffon 12-08-2020 ABS NEUTROPHILS 1.38 K/UL Low 1.8-7.7 [facility] Comment on above: Result Comment: DARELL ECTED ON 12/08 AT 1254: PREVIOUSLY REPORTED 1.39 PLATELET ESTIMATE ADEQUATE Normal [facility] RBC morphology finding Nom (Bld) CONSISTENT WITH PERIPHERAL SMEAR Normal [facility] WBC MORPHOLOGY SMEAR REVIEWED AND F OUND CONSISTENT WITH AUTOMATED DIFFERENTIAL Normal [facility] AB IMMATURE NEUT 0.00 K/UL Normal 0.0-0.1 [facility] ABS BASO 0.01 K/UL Normal 0.00-0.22 [facility] ABS EOS 0.20 K/UL Normal 0-0.45 [facility] ABS.NEUT.CALCULATED 1.39 K/UL Normal [facility] Comment on above: Result Comment: Perf ormed at [facility] [address] [facility] [address] Basophils/100 WBC (Bld) 0.30 % Normal 0-1 [facility] DIFF TYPE AUTO DIFF Normal [facility] Eosinophils/100 WBC (Bld) 6.40 % High 0-3 [facility] Erythrocyte distribution width (RBC) [Ratio] 11.9 % Normal 11.7-15.0 [facility] Hematocrit (Bld) [Volume fraction] 40.0 % Low 41-50 [facility] Hemoglobin (Bld) [Mass/Vol] 13.5 g/dL Normal 13.5-16.5 [facility] Lymphocytes (Bld) [#/Vol] 1.20 10*3/uL Normal 1.2-3.2 [facility] Lymphocytes/100 WBC (Bld) 38.60 % Normal 20-40 [facility] MCH (RBC) [Entitic mass] 36.0 pg High 26-34 [facility] MCHC 33.8 % Normal 31-37 [facility] MCV (RBC) [Entitic vol] 106.7 fL High 80-100 [facility] MEAN PLT VOL 8.5 CU Normal 7.0-12.6 [facility] Monocytes (Bld) [#/Vol] 0.31 10*3/uL Normal 0-0.8 [facility] Monocytes/100 WBC (Bld) 10.00 % High 0-8 [facility] Neutrophils/100 WBC (Bld) 0.00 % Normal 0.0-1.0 [facility] Neutrophils/100 WBC (Bld) 44.70 % Low 50-70 [facility] Platelets (Bld) [#/Vol] 168 10*3/uL Normal 150-450 [facility] RBC (Bld) [#/Vol] 3.75 10*6/uL Low 4.5-5.5 [facility] RDW-SD 46.6 FL Normal 37.0-54.0 [facility] WBC (Bld) [#/Vol] 3.1 10*3/uL Low 4.5-11.0 [facility] COMPREHENSIVE METABOLIC PANE Melvin 12-08-2020 Albumin [Mass/Vol] 4.2 g/dL Normal 3.5-5.0 [facility] Albumin/Globulin [Mass ratio] 1.3 {ratio} Low 1.5-3.0 [facility] ALP [Catalytic activity/Vol] 77 U/L Normal 35-125 [facility] ALT [Catalytic activity/Vol] 10 U/L Normal 5-40 [facility] Anion gap [Moles/Vol] 10 mmol/L Normal 0-19 [facility] AST [Catalytic activity/Vol] 16 U/L Normal 5-40 [facility] Bilirubin [Mass/Vol] 0.7 mg/dL Normal 0.1-1.2 [facility] Calcium [Mass/Vol] 9.6 mg/dL Normal 8.5-10.4 [facility] Chloride [Moles/Vol] 102 mmol/L Normal 97-107 [facility] CO2 [Moles/Vol] 28 mmol/L Normal 24-31 [facility] Creatinine [Mass/Vol] 1.1 mg/dL Normal 0.4-1.6 [facility] ESTIMATED GFR 70 mL/min/1.73 m2 Normal [facility] Comment on above: Result Comment: GFR ml/min/1.73m2 Stage ----- 90 1 60-89 2 30-59 3 15-29 4 <15 5 For -Americans, multiply EGFR result by 1.210 Calculation not validated for patients under 18 years of age. Performed at [facility] [address] [facility] [address] Globulin (S) [Mass/Vol] 3.2 g/dL Normal 1.9-3.7 [facility] Glucose [Mass/Vol] 94 mg/dL Normal 65-99 [facility] Potassium [Moles/Vol] 4.1 mmol/L Normal 3.4-5.1 [facility] Protein [Mass/Vol] 7.4 g/dL Normal 5.9-7.9 [facility] Sodium [Moles/Vol] 140 mmol/L Normal 133-145 [facility] Urea nitrogen [Mass/Vol] 15 mg/dL Normal 8-25 [facility] Urea nitrogen/Creatinine [Mass ratio] 13.6 mg/mg Normal 8-21 [facility] EKGon 12-08-2020 Electrocardiogram EKG Ventricular Rate : 57 BPM Atrial Rate : 57 BPM P-R Interval : 174 ms QRS Duration : 102 ms Q-T Interval : 430 ms QTC Calculation(Bazett) : 418 ms Calculated P [place] : 74 degrees Calculated R [place] : 56 degrees Calculated T [place] : 69 degrees Diagnosis:Sinus bradycardia with Premature atrial complexes and Premature ventricular complexes or Fusion complexes Otherwise normal ECG When compared with ECG of 08-DEC-2020 11:04, Premature atrial complexes are now Present Confirmed by XIN TONG DO ([id number]) on 12/10/2020 9:36:45 AM Normal [facility] Electrocardiogram EKG Ventricular Rate : 51 BPM Atrial Rate : 51 BPM P-R Interval : 186 ms QRS Duration : 102 ms Q-T Interval : 432 ms QTC Calculation(Bazett) : 398 ms Calculated P [place] : 70 degrees Calculated R [place] : 44 degrees Calculated T [place] : 63 degrees Diagnosis:Sinus bradycardia with occasional Premature ventricular complexes Otherwise normal ECG No previous ECGs available Confirmed by XIN TONG DO ([id number]) on 12/10/2020 9:37:02 AM Normal [facility] SARS-CoV-2,INFLUENZA A/B NUC LEIC ACID TESTon 12-08-2020 EUA DISCLAIMER Normal [facility] Comment on above: Result Comment: This [...] is terminated or revoked sooner. Performed at [place] [address] FLU A by PCR Negative [facility] FLU B by PCR Negative [facility] SARS-CoV-2 (COVID-19) RNA KEIKO+probe Ql (Unsp spec) Negative Normal [facility] TSHon 12-08-2020 TSH 0.24 MIU/L Low 0.27-4.20 [facility] Comment on above: Result Comment: Perf ormed at [address] [address] Performed By: #### T SHR ####[facility] [address] [address] UA-REFLEX TO CULTUREon 12-08 RBC OCC Normal 0-3 [facility] Urinalysis dipstick W Reflex Microscopic panel (U) MANUAL MICROSCOPIC URINES Normal [facility] WBC OCC Normal 0-3 [facility] OTHER Normal [facility] Comment on above: Result Comment: PRES ENT MUCOUS Performed at [address] [place] [address] Bacteria identified Cx Nom (U) CULTURE NOT INDICATED [facility] Comment on above: Result Comment: CULT URE NOT INDICATED Performed at [address] [address] BILI Negative Normal [facility] Clarity (U) CLEAR Normal [facility] Color (U) YELLOW Normal [facility] GLUC Negative Normal NEG [facility] Hemoglobin Ql (U) Negative Normal NEG [facility] KET Negative Normal NEG [facility] LEUK Negative Normal NEG [facility] NIT Negative Normal NEG [facility] pH (U) 6.0 [pH] Normal 4.6-8.0 [facility] PROT TRACE Abnormal NEG [facility] SP GRAV,URINE 1.025 Normal 1.005-1.03 0 [facility] URO 0.2 MG/DL Normal 0-1.0 [facility] B12/Folate Panelon Cobalamin (Vitamin B12) [Mass/Vol] 507 pg/mL Normal 232-[address] [facility] Comment on above: Performed By: #### F T4, B12FOL, TSHX #### [employer] [address] [place] [address] [phone] Wellness Director: Juan F Dominguez MD Folic Acid 10.6 ng/mL Normal >4.[address] [facility] Comment on above: Performed By: #### F T4, B12FOL, TSHX #### [employer] [address] [place] [address] [phone] Wellness Director: Juan F Dominguez MD T4, Freeon 10-13-2020 Thyroxine, Free 0.97 ng/dL 0.93 - 1.7 ng/dL [place], [place] TSH w/reflex to FT4on 2020 TSH Qn 0.04 m[IU]/L Low 0.30-5.[address] [facility] Comment on above: Performed By: #### F T4, B12FOL, TSHX #### [employer] [address] [place] [address] [phone] Wellness Director: Juan F Dominguez MD TSH with Reflexon 10-13-2020 Interpretation and review of laboratory results Abnormal [place], [place] TSH Qn 0.04 m[IU]/L Low [place] Thyroxine, Freeon 10-13-2020 Thyroxine, Free 0.97 ng/dL Normal 0.93-1.[address] [facility] Comment on above: Performed By: #### F T4, B12FOL, TSHX #### [employer] [address] [place] [phone] Wellness Director: Juan F Dominguez MD Vitamin B12 & Folateon 10-13 Cobalamin (Vitamin B12) [Mass/Vol] 507 pg/mL 232 - 1245 pg/mL [place] Folate 10.6 ng/mL >4.8 [place], [place] C REACTIVE PROTEINon 021 C REACTIVE PROTEIN 0.3 MG/DL Normal 0-2.0 [facility] Comment on above: Result Comment: LESS THAN Performed at [address] [address] Performed By: #### C RP #### [facility] [address] [address] CBC with Diffon 10-11-2020 AB IMMATURE NEUT 0.00 K/UL Normal 0.0-0.1 [facility] ABS BASO 0.02 K/UL Normal 0.00-0.22 [facility] ABS EOS 0.21 K/UL Normal 0-0.45 [facility] ABS NEUTROPHILS 1.64 K/UL Low 1.8-7.7 [facility] ABS.NEUT.CALCULATED 1.64 K/UL Normal [facility] Comment on above: Result Comment: Perf ormed at [facility] [address] [address] [facility] [address] Basophils/100 WBC (Bld) 0.50 % Normal 0-1 [facility] DIFF TYPE AUTO DIFF Normal [facility] Eosinophils/100 WBC (Bld) 5.10 % High 0-3 [facility] Erythrocyte distribution width (RBC) [Ratio] 11.3 % Low 11.7-15.0 [facility] Hematocrit (Bld) [Volume fraction] 39.6 % Low 41-50 [facility] Hemoglobin (Bld) [Mass/Vol] 13.6 g/dL Normal 13.5-16.5 [facility] Lymphocytes (Bld) [#/Vol] 1.74 10*3/uL Normal 1.2-3.2 [facility] Lymphocytes/100 WBC (Bld) 42.00 % High 20-40 [facility] MCH (RBC) [Entitic mass] 36.2 pg High 26-34 [facility] MCHC 34.3 % Normal 31-37 [facility] MCV (RBC) [Entitic vol] 105.3 fL High 80-100 [facility] MEAN PLT VOL 8.4 CU Normal 7.0-12.6 [facility] Monocytes (Bld) [#/Vol] 0.53 10*3/uL Normal 0-0.8 [facility] Monocytes/100 WBC (Bld) 12.80 % High 0-8 [facility] Neutrophils/100 WBC (Bld) 0.00 % Normal 0.0-1.0 [facility] Neutrophils/100 WBC (Bld) 39.60 % Low 50-70 [facility] Platelets (Bld) [#/Vol] 186 10*3/uL Normal 150-450 [facility] RBC (Bld) [#/Vol] 3.76 10*6/uL Low 4.5-5.5 [facility] RDW-SD 44.8 FL Normal 37.0-54.0 [facility] WBC (Bld) [#/Vol] 4.1 10*3/uL Low 4.5-11.0 [facility] SEDIMENTATION RATEon 021 SEDIMENTATION RATE 50 MM/HR High 0-12 [facility] Comment on above: Result Comment: Perf ormed at [facility] [address] [address] [facility] [address] Automated basophil %on 10-07 Basophils/100 WBC (Bld) 0.2 % [facility] Automated basophil counton 0 2020 Basophils (Bld) [#/Vol] 0.0 10*3/uL 0.0-0.2 [facility] Automated blood lymphocyte c ount (number/volume)on 2020 Lymphocytes (Bld) [#/Vol] 1.2 10*3/uL 1.00-4.8 [facility] Automated blood lymphocyte c ount as percentage of total leukocyteson 2020 Lymphocytes/100 WBC (Bld) 25.0 % [facility] Automated blood monocyte cou nton 2020 Monocytes (Bld) [#/Vol] 0.6 10*3/uL 0.0-0.8 [facility] Automated blood platelet cou nt (count/volume)on 2020 Platelets (Bld) [#/Vol] 177 10*3/uL 150-450 [facility] Automated blood platelet rishabh n volume measurementon 2020 Platelet mean volume (Bld) [Entitic vol] 6.9 fL 6.6-10.1 [facility] Automated eosinophil %on Eosinophils/100 WBC (Bld) 3.8 % [facility] Automated eosinophil counton 2020 Eosinophils (Bld) [#/Vol] 0.2 10*3/uL 0.0-0.45 [facility] Automated erythrocyte distri bution width ratioon 2020 Erythrocyte distribution width (RBC) [Ratio] 12.3 % 12.0-14.8 [facility] Automated erythrocyte mean c orpuscular hemoglobin (mass per erythrocyte)on 2020 MCH (RBC) [Entitic mass] 35.9 pg 27.5-35.2 [facility] Automated erythrocyte mean c orpuscular hemoglobin concentration measurement (mass/volon 2020 MCHC (RBC) [Mass/Vol] 34.2 g/dL 32.5-35.[address] [facility] Automated erythrocyte mean c orpuscular volumeon 2020 MCV (RBC) [Entitic vol] 105.1 fL 83.5-101 [facility] Automated monocyte %on 10-07 Monocytes/100 WBC (Bld) 12.5 % [facility] Automated neutrophil %on Neutrophils/100 WBC (Bld) 58.5 % [facility] Blood erythrocytes automated count (number/volume)on 2020 RBC (Bld) [#/Vol] 3.74 10*6/uL 3.90-5.60 [facility] Blood hemoglobin measurement (mass/volume)on 2020 Hemoglobin (Bld) [Mass/Vol] 13.4 g/dL 13.0-17.0 [facility] Blood leukocytes automated c ount (number/volume)on 2020 WBC (Bld) [#/Vol] 4.6 10*3/uL 4.5-11.0 [facility] Blood neutrophil count by au tomated method (number/volume)on 2020 Neutrophils (Bld) [#/Vol] 2.7 10*3/uL 1.8-7.7 [facility] Body fluid albumin measureme nt (mass/volume)on 2020 Albumin (Body fld) [Mass/Vol] 3.6 g/dL 3.2-5.5 [facility] Cholesterol [Mass/volume] in Serum or Plasmaon 2020 Cholesterol [Mass/Vol] 93 mg/dL 140-200 [facility] Comment on above: Chol less than 200 m g/dl low riskChol 201-239 mg/dl borderline riskChol 240 mg/dl and greater high risk Cholesterol in LDL [Mass/vol ume] in Serum or Plasma by calculationon 2020 Cholesterol in LDL [Mass/Vol] 42 mg/dL 0-100 [facility] Comment on above: LDL ATP III CLASSIFI CATIONLDL less than 100 mg/dL OptimalLDL 100-129 mg/dL Near or above optimalLDL 130-159 mg/dL Borderline highLDL 160-189 mg/dL HighLDL greater than 189 mg/dL Very high Cholesterol in VLDL [Mass/vo lume] in Serum or Plasma by calculationon 2020 Cholesterol in VLDL [Mass/Vol] 7 mg/dL [facility] Estimated glomerular filtrat ion rate (GFR) non- Americanon 2020 GFR/1.73 sq M predicted among non-blacks MDRD (S/P/Bld) [Vol rate/Area] 51 mL/min/{1.73_m2} [facility] Hematocrit [Volume Fraction] of Blood by Automated counton 2020 Hematocrit (Bld) [Volume fraction] 39.3 % 38.8-50.0 [facility] Otheron 2020 GFR/1.73 sq M.predicted MDRD (S/P/Bld) [Vol rate/Area] mL/min/{1.73_m2} [facility] Comment on above: GFR estimated refere nce range: According to KDOQI guidelines, <60 ml/min/1.73m2 is sufficient to diagnose a patient with chronic kidney disease. Nucleated RBC/100 WBC (Bld) [Ratio] 0.0 % 0-0.5 [facility] Creatinine Clearance (Chem N/A [facility] Protein [Mass/volume] in Ser um or Plasmaon 2020 Protein [Mass/Vol] 7.3 g/dL 6.1-7.9 [facility] Serum globulin measurement b y calculation (mass/volume)on 2020 Globulin (S) [Mass/Vol] 3.7 g/dL [facility] Serum or plasma alanine huntley otransferase measurement without P-5'-P (enzymatic activion 2020 ALT No additional P-5'-P [Catalytic activity/Vol] 23 U/L 10-60 [facility] Serum or plasma albumin/glob ulin mass ratioon 2020 Albumin/Globulin [Mass ratio] 1.0 {ratio} [facility] Serum or plasma alkaline latoya sphatase measurement (enzymatic activity/volume)on 2020 ALP [Catalytic activity/Vol] 63 U/L 32-92 [facility] Serum or plasma aspartate am inotransferase measurement (enzymatic activity/volume)on 2020 AST [Catalytic activity/Vol] 18 U/L 10-42 [facility] Serum or plasma calcium ilana urement (mass/volume)on 2020 Calcium [Mass/Vol] 9.8 mg/dL 8.2-10.2 [facility] Serum or plasma chloride rishabh surement (moles/volume)on 2020 Chloride [Moles/Vol] 104 mmol/L 95-114 [facility] Serum or plasma creatinine m easurement with calculation of estimated glomerular filtron 2020 Creatinine [Mass/Vol] 1.37 mg/dL 0.64-1.[address] [facility] Serum or plasma glucose ilana urement (mass/volume)on 2020 Glucose [Mass/Vol] 116 mg/dL 70-100 [facility] Comment on above: ADA recommended refe rence rangeRandom Glucose Reference Range is dependent on time and content of last meal. Glucose of more than 200 mg/dL in a nonstressed, ambulatory subject supports the diagnosis of Diabetes Mellitus. Serum or plasma high density lipoprotein (HDL) cholesterol measurementon 2020 Cholesterol in HDL [Mass/Vol] 43 mg/dL 29-71 [facility] Comment on above: HDL CHOL ATP-III CLA SSIFICATION Cardiovascular RiskHDL > or equal to 60 mg/dL LOWHDL < 40 mg/dL HIGH Serum or plasma potassium me asurement (moles/volume)on 2020 Potassium [Moles/Vol] 4.1 mmol/L 3.5-5.[address] [facility] Serum or plasma sodium measu rement (moles/volume)on 2020 Sodium [Moles/Vol] 140 mmol/L 136-146 [facility] Serum or plasma total biliru bin measurement (mass/volume)on 2020 Bilirubin [Mass/Vol] 0.7 mg/dL 0.3-1.2 [facility] Serum or plasma total carbon dioxide measurement (moles/volume)on 2020 CO2 [Moles/Vol] 24.4 mmol/L 22.0-30.0 [facility] Serum or plasma total choles terol/high density lipoprotein (HDL) cholesterol mass noni 2020 Cholesterol.total/Chol esterol in HDL [Mass ratio] 2.2 {ratio} [facility] Serum or plasma urea nitroge n measurement (mass/volume)on 2020 Urea nitrogen [Mass/Vol] 24 mg/dL 9-23 [facility] Triglyceride [Mass/volume] i n Serum or Plasmaon 2020 Triglyceride [Mass/Vol] 39 mg/dL 35-149 [facility] Comment on above: TRIG ATP [...] MD 02/04/20 Final result Normal 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 [facility] EXAMINATION: CT OF T HE HEAD [...] of the visualized skull or soft tissues. [facility] Faustino, Mhpn Incoming R adiant Results From [employer] - 02/04/2020 4:14 PM EDT EXAMINATION: CT [...] cerebral artery infarct without evidence for hemorrhage. [place], [place] EVENT MONITORon 01-07-[address] [id number] EVENT MONITOR PATIENT NAME: NEIL WILCOX : 1945 MED REC NO: [id number] ROOM: [facility] ACCOUNT NO: [id number] ADMIT DATE: 12/21/2019 PROVIDER: Sabine Schrader EVENT [...] couplets. SABINE SCHRADER /BAN Doc#: Unknown Normal [facility] CTA HEAD NECK W CONTRASTon 0 [...] MD 12/22/19 Final result Normal [facility] Comp Metabolic Pr/rfx MGon 0 12-22-2019 AST [Catalytic activity/Vol] 21 U/L Normal <[address] [facility] Comment on above: Performed By: #### C MPX, GLYHGB, LIPR, LACTIC, CDP #### [facility] [employer] [address] [place] [phone] Wellness Director: Juan F Dominguez MD Drug Scr, Abuse, Uron 2019 Amphetamine(s),Ur Negative Normal NEG [facility] Comment on above: Result Comment: (Positive cutoff 1000 ng/mL) Performed By: #### Artem SCHULZ UA, UMICAO #### [facility] [employer] [address] [place] [phone] Wellness Director: Juan F Dominguez MD Barbiturate(s),Ur Positive Abnormal NEG [facility] Comment on above: Result Comment: (Positive cutoff 200 ng/mL) Performed By: #### Artem SCHULZ UA, UMICAO #### [employer] [address] [place] [phone] Wellness Director: Juan F Dominguez MD Base excess Calc (Bld) [Moles/Vol] Negative Normal NEG [facility] Comment on above: Result Comment: (Positive cutoff 300 ng/mL) Performed By: #### Artem SCHULZ UA, UMICAO #### [employer] [address] [place] [address] Wellness Director: Juan F Dominguez MD Benzodiazepine(s) Negative Normal NEG [facility] Comment on above: Result Comment: (Positive cutoff 200 ng/mL) Performed By: #### Artem SCHULZ UA, UMICAO #### [employer] [address] [place] [phone] Wellness Director: Juan F Dominguez MD Cannabinoid(s),Ur Negative Normal NEG [facility] Comment on above: Result Comment: (Positive cutoff 50 ng/mL) Performed By: #### ALEXIS MIRANDA, UMICAO #### [employer] [address] [place] [phone] Wellness Director: Juan F Dominguez MD Interpretive Info Assay provides medic al screening only. The absence of expected drug(s) and/or Normal [facility] Comment on above: Result Comment: meta bolite(s) may indicate diluted or adulterated urine, limitations of testing or timing of collection. Testing for legal purposes should be confirmed by another method. To request confirmation of test result, please call the lab within 7 days of sample submission. Performed By: #### ALEXIS MIRANDA UMICAO #### [employer] [address] [place] [phone] Wellness Director: Juan F Dominguez MD Methadone Ql (U) Negative Normal NEG [facility] Comment on above: Result Comment: (Positive cutoff 300 ng/mL) Performed By: #### ALEXIS MIRANDA, UMICAO #### [employer] [address] [place] [phone] Wellness Director: Juan F Dominguez MD Opiate(s), Ur Negative Normal NEG [facility] Comment on above: Result Comment: (Positive cutoff 300 ng/mL) Performed By: #### ALEXIS MIRANDA, UMICAO #### [employer] [address] [place] [phone] Wellness Director: Juan F Dominguez MD Oxycodone, Urine Negative Normal NEG [facility] Comment on above: Result Comment: (Positive cutoff 100 ng/mL) Performed By: #### Artem SCHULZ UA, UMICAO #### [employer] [address] [place] [phone] Wellness Director: Juan F Dominguez MD Phencyclidine, Ur Negative Normal NEG [facility] Comment on above: Result Comment: (Positive cutoff 25 ng/mL) Performed By: #### D ZEUS UA, UMICAO #### [employer] [address] [place] [address] Wellness Director: Juan F Dominguez MD Hemoglobin A1Con 12-22-2019 HbA1c (Bld) [Mass fraction] 120 mg/dL Normal [facility] Comment on above: Result Comment: The ADA and AACC recommend providing the estimated average glucose result to permit better patient understanding of their HBA1c result. Performed By: #### Artem SCHULZ UA, UMICAO #### [employer] [address] [place] [phone] Wellness Director: Juan F Dominguez MD HbA1c (Bld) [Mass fraction] 5.8 % Normal 4.0-6.[address] [facility] Comment on above: Performed By: #### Artem SCHULZ UA, UMICAO #### [facility] [address] [place] [phone] Wellness Director: Juan F Dominguez MD Lactic Acidon 12-22-2019 Lactate [Moles/Vol] 1.2 mmol/L Normal 0.7-2.[address] [facility] Comment on above: Performed By: #### Artem SCHULZ UA, UMICAO #### [employer] [address] [place] [phone] Wellness Director: Juan F Dominguez MD Lipid Profileon 12-22-2019 Cholesterol [Mass/Vol] 137 mg/dL Normal <200 [facility] Comment on above: Result Comment: Cholesterol Guidelines: <200 Desirable 200-240 Borderline >240 Undesirable Performed By: #### D ZEUS UA, UMICAO #### [employer] [address] [place] [phone] Wellness Director: Juan F Dominguez MD Cholesterol in HDL [Mass/Vol] 53 mg/dL Normal >[address] [facility] Comment on above: Result Comment: HDL Guidelines: <40 Undesirable 40-59 Borderline >59 Desirable Performed By: #### Artem SCHULZ UA, UMICAO #### [employer] [address] [place] [address] Wellness Director: Juan F Dominguez MD Cholesterol in LDL [Mass/Vol] 73 mg/dL Normal 0-[address] [facility] Comment on above: Result Comment: LDL Guidelines: <100 Desirable 100-129 Near to/above Desirable 130-159 Borderline >159 Undesirable Direct (measured) LDL and calculated LDL are not interchangeable tests. Performed By: #### D ALEXIS SCHULZ, UMICAO #### [facility] [employer] [address] [place] [phone] Wellness Director: Juan F Dominguez MD Cholesterol.total/Chol esterol in HDL [Mass ratio] 2.6 {ratio} Normal <[address] [facility] Comment on above: Performed By: #### ALEXIS MIRANDA, UMICAO #### [facility] [employer] [address] [place] [address] Wellness Director: Juan F Dominguez MD Triglyceride [Mass/Vol] 57 mg/dL Normal <[address] [facility] Comment on above: Result Comment: Triglyceride Guidelines: <150 Desirable 150-199 Borderline 200-499 High >499 Very high Based on AHA Guidelines for fasting triglyceride, June 2012. Performed By: #### ALEXIS MIRANDA, UMICAO #### [facility] [employer] [address] [place] [phone] Wellness Director: Juan F Dominguez MD Urinalysis, Routineon 2019 Acetoacetic Acid,Ur TRACE Abnormal NEG [facility] Comment on above: Performed By: #### Artem SCHULZ UA, UMICAO #### [facility] [address] [place] [phone] Wellness Director: Juan F Dominguez MD Bilirubin, SemiQt,Ur Negative Normal NEG [facility] Comment on above: Performed By: #### D ZEUS UA, UMICAO #### [facility] [address] [place] [phone] Wellness Director: Juan F Dominguez MD Color (U) YELLOW Normal YEL [facility] Comment on above: Performed By: #### Artem AU, UA, UMICAO #### [facility] [address] [place] [address] Wellness Director: Juan F Dominguez MD Glucose Ql (U) Negative Normal NEG [facility] Comment on above: Performed By: #### Artem AU, UA, UMICAO #### [facility] [address] [place] [address] Wellness Director: Juan F Dominguez MD Hemoglobin, Ur Negative Normal NEG [facility] Comment on above: Performed By: #### Artem AU, UA, UMICAO #### [facility] [address] [place] [address] Wellness Director: Juan F Dominguez MD Leukocyte esterase Test strip Ql (U) Negative Normal NEG [facility] Comment on above: Performed By: #### Artem AU, UA, UMICAO #### [facility] [employer] [address] [place] [address] Wellness Director: Juan F Dominguez MD Nitrite,Ur Negative Normal NEG [facility] Comment on above: Performed By: #### Artem AU, UA, UMICAO #### [facility] [address] [place] [phone] Wellness Director: Juan F Dominguez MD pH (U) 5.0 [pH] Normal 5.0-8.[address] [facility] Comment on above: Performed By: #### Artem AU, UA, UMICAO #### [facility] [address] [place] [phone] Wellness Director: Juan F Dominguez MD Protein Ql (U) 1+ Abnormal NEG [facility] Comment on above: Performed By: #### Artem AU, UA, UMICAO #### [facility] [address] [place] [phone] Wellness Director: Juan F Dominguez MD Specific gravity (U) [Rel density] 1.025 Normal 1.005-1.[address] [facility] Comment on above: Performed By: #### ALEXIS MIRANDA, UMICAO #### [address] [address] Wellness Director: Juan F Dominguez MD Turbidity CLEAR Normal CLEAR [facility] Comment on above: Performed By: #### Artem SCHULZ UA, UMICAO #### [facility] [address] [place] [address] Wellness Director: Juan F Dominguez MD Urobilinogen,Ur Normal Normal NORM [facility] Comment on above: Performed By: #### Artem SCHULZ UA, UMICAO #### [address] [address] Wellness Director: Juan F Dominguez MD Urinalysis,Microon 0 ----- Normal [facility] Comment on above: Performed By: #### Artem SCHULZ UA, UMICAO #### [address] [address] Wellness Director: Juan F Dominguez MD Casts LM.LPF (Urine sed) [#/Area] 2 TO 5 HYALINE Normal 0-[address] [facility] Comment on above: Result Comment: Refe rence range defined for non-centrifuged specimen. Performed By: #### ALEXIS MIRANDA, UMICAO #### [facility] [address] [place] [address] Wellness Director: Juan F Dominguez MD Epithelial cells LM.HPF (Urine sed) [#/Area] 0 TO 2 Normal 0-[address] [facility] Comment on above: Performed By: #### Artem SCHULZ UA, UMICAO #### [facility] [address] [place] [address] Wellness Director: Juan F Dominguez MD RBC (U) [#/Vol] 0 TO 2 Normal 0-[address] [facility] Comment on above: Result Comment: Refe rence range defined for non-centrifuged specimen. Performed By: #### D ALEXIS SCHULZ, ICAO #### [address] [address] Wellness Director: Juan F Dominguez MD WBC (U) [#/Vol] 2 TO 5 Normal 0-[address] [facility] Comment on above: Performed By: #### D ALEXIS SCHULZ, ICAO #### [address] [address] Wellness Director: Juan F Dominguez MD CBC with Diffon 12-21-2019 Abs. Basophil <0.03 Normal 0.00-0.[address] [facility] Comment on above: Performed By: #### C MPX, GLYHGB, LIPR, LACTIC, CDP #### [address] [address] Wellness Director: Juan F Dominguez MD Abs.Imm.Granulocyte <0.03 Normal 0.00-0.[address] [facility] Comment on above: Performed By: #### C MPX, GLYHGB, LIPR, LACTIC, CDP #### [address] [address] Wellness Director: Juan F Dominguez MD Abs.Neutrophil (Seg) 2.41 k/uL Normal 1.50-8.10 [facility] Comment on above: Performed By: #### C MPX, GLYHGB, LIPR, LACTIC, CDP #### [address] [address] Wellness Director: Juan F Dominguez MD Basophils/100 WBC (Bld) 0 % Normal 0-[address] [facility] Comment on above: Performed By: #### C MPX, GLYHGB, LIPR, LACTIC, CDP #### [address] [address] Wellness Director: Juan F Dominguez MD Eosinophils (Bld) [#/Vol] 0.08 10*3/uL Normal 0.00-0.[address] [facility] Comment on above: Performed By: #### C MPX, GLYHGB, LIPR, LACTIC, CDP #### [address] [address] Wellness Director: Juan F Dominguez MD Eosinophils/100 WBC (Bld) 2 % Normal 1-[address] [facility] Comment on above: Performed By: #### C MPX, GLYHGB, LIPR, LACTIC, CDP #### [place] [address] Wellness Director: Juan F Dominguez MD Erythrocyte distribution width (RBC) [Ratio] 11.9 % Normal 11.8-14.[address] [facility] Comment on above: Performed By: #### C MPX, GLYHGB, LIPR, LACTIC, CDP #### [address] [address] Wellness Director: Juan F Dominguez MD Hematocrit (Bld) [Volume fraction] 38.8 % Low 40.7-50.[address] [facility] Comment on above: Performed By: #### C MPX, GLYHGB, LIPR, LACTIC, CDP #### [address] [address] Wellness Director: Juan F Dominguez MD Hemoglobin (Bld) [Mass/Vol] 13.6 g/dL Normal 13.0-17.[address] [facility] Comment on above: Performed By: #### C MPX, GLYHGB, LIPR, LACTIC, CDP #### [address] [address] Wellness Director: Juan F Dominguez MD Immature granulocytes (Bld) [#/Vol] 0 % Normal [address] [facility] Comment on above: Performed By: #### C MPX, GLYHGB, LIPR, LACTIC, CDP #### [address] [address] Wellness Director: Juan F Dominguez MD Lymphocytes (Bld) [#/Vol] 1.11 10*3/uL Normal 1.10-3.[address] [facility] Comment on above: Performed By: #### C MPX, GLYHGB, LIPR, LACTIC, CDP #### [address] [address] Wellness Director: Juan F Dominguez MD Lymphocytes/100 WBC (Bld) 28 % Normal 24-[address] [facility] Comment on above: Performed By: #### C MPX, GLYHGB, LIPR, LACTIC, CDP #### [address] [address] Wellness Director: Juan F Dominguez MD MCH (RBC) [Entitic mass] 35.8 pg High 25.2-33.[address] [facility] Comment on above: Performed By: #### C MPX, GLYHGB, LIPR, LACTIC, CDP #### [address] [address] Wellness Director: Juan F Dominguez MD MCHC (RBC) [Mass/Vol] 35.1 g/dL High 28.4-34.8 [facility] Comment on above: Performed By: #### C MPX, GLYHGB, LIPR, LACTIC, CDP #### [address] [address] Wellness Director: Juan F Dominguez MD MCV (RBC) [Entitic vol] 102.1 fL Normal 82.6-102.[address] [facility] Comment on above: Performed By: #### C MPX, GLYHGB, LIPR, LACTIC, CDP #### [address] [address] Wellness Director: Juan F Dominguez MD Monocytes (Bld) [#/Vol] 0.41 10*3/uL Normal 0.10-1.[address] [facility] Comment on above: Performed By: #### C MPX, GLYHGB, LIPR, LACTIC, CDP #### [address] [address] Wellness Director: Juan F Dominguez MD Monocytes/100 WBC (Bld) 10 % Normal 3-[address] [facility] Comment on above: Performed By: #### C MPX, GLYHGB, LIPR, LACTIC, CDP #### [address] [address] Wellness Director: Juan F Dominguez MD Neutrophil (Seg) 60 % Normal 36-65 [facility] Comment on above: Performed By: #### C MPX, GLYHGB, LIPR, LACTIC, CDP #### [address] [address] Wellness Director: Juan F Dominguez MD NRBC Automated 0.0 per 100 WBC Normal 0.[address] [facility] Comment on above: Performed By: #### C MPX, GLYHGB, LIPR, LACTIC, CDP #### [address] [address] Wellness Director: Juan F Dominguez MD Platelet mean volume (Bld) [Entitic vol] 8.2 fL Normal 8.1-13.[address] [facility] Comment on above: Performed By: #### C MPX, GLYHGB, LIPR, LACTIC, CDP #### [address] [address] Wellness Director: Juan F Dominguez MD Platelets (Bld) [#/Vol] 200 10*3/uL Normal 138-[address] [facility] Comment on above: Performed By: #### C MPX, GLYHGB, LIPR, LACTIC, CDP #### [address] [address] Wellness Director: Juan F Dominguez MD RBC (Bld) [#/Vol] 3.80 10*6/uL Low 4.21-5.[address] [facility] Comment on above: Performed By: #### C MPX, GLYHGB, LIPR, LACTIC, CDP #### [address] [address] Wellness Director: Juan F Dominguez MD WBC (Bld) [#/Vol] 4.0 10*3/uL Normal 3.5-11.[address] [facility] Comment on above: Performed By: #### C MPX, GLYHGB, LIPR, LACTIC, CDP #### [address] [address] Wellness Director: Juan F Dominguez MD Auto Diff Performed NOT REPORTED Normal [facility] Comment on above: Performed By: #### C MPX, GLYHGB, LIPR, LACTIC, CDP #### [address] [address] Wellness Director: Juan F Dominguez MD Platelets (Bld) [#/Vol] NOT REPORTED Normal [facility] Comment on above: Performed By: #### C MPX, GLYHGB, LIPR, LACTIC, CDP #### [address] [address] Wellness Director: Juan F Dominguez MD RBC morphology finding Nom (Bld) NOT REPORTED Normal [facility] Comment on above: Performed By: #### C MPX, GLYHGB, LIPR, LACTIC, CDP #### [address] [address] Wellness Director: Juan F Dominguez MD WBC Morphology NOT REPORTED Normal [facility] Comment on above: Performed By: #### C MPX, GLYHGB, LIPR, LACTIC, CDP #### [facility] [address] [place] [address] Wellness Director: Juan F Dominguez MD Comp Metabolic Pr/rfx MGon 0 12-21-2019 (cont.) Normal [facility] Comment on above: Result Comment: Aver age GFR for 70 or more years old: 75 mL/min/1.73sq m Chronic Kidney Disease: <60 mL/min/1.73sq m Kidney failure: <15 mL/min/1.73sq m eGFR calculated using average adult body mass. Additional eGFR calculator available at: http://www.[employer]/multiple_crcl_2011.htm Performed By: #### C MPX, GLYHGB, LIPR, LACTIC, CDP #### [facility] [address] [place] [address] Wellness Director: Juan F Dominguez MD Albumin [Mass/Vol] 3.9 g/dL Normal 3.5-5.[address] [facility] Comment on above: Performed By: #### C MPX, GLYHGB, LIPR, LACTIC, CDP #### [facility] [address] [place] [address] Wellness Director: Juan F Dominguez MD Albumin/Globulin [Mass ratio] 1.2 {ratio} Normal 1.0-2.[address] [facility] Comment on above: Performed By: #### C MPX, GLYHGB, LIPR, LACTIC, CDP #### [facility] [address] [place] [address] Wellness Director: Juan F Dominguez MD Alkaline Phos 80 U/L Normal 40-[address] [facility] Comment on above: Performed By: #### C MPX, GLYHGB, LIPR, LACTIC, CDP #### [facility] [address] [place] [address] Wellness Director: Juan F Dominguez MD ALT [Catalytic activity/Vol] 22 U/L Normal 5-[address] [facility] Comment on above: Performed By: #### C MPX, GLYHGB, LIPR, LACTIC, CDP #### [address] [address] Wellness Director: Juan F Dominugez MD Anion gap [Moles/Vol] 15 mmol/L Normal 9-17 [facility] Comment on above: Performed By: #### C MPX, GLYHGB, LIPR, LACTIC, CDP #### [address] [address] Wellness Director: Juan F Dominguez MD Bilirubin Ql (U) 0.74 mg/dL Normal 0.3-1.2 [facility] Comment on above: Performed By: #### C MPX, GLYHGB, LIPR, LACTIC, CDP #### [address] [address] Wellness Director: Juan F Dominguez MD Calcium [Mass/Vol] 9.5 mg/dL Normal 8.6-10.[address] [facility] Comment on above: Performed By: #### C MPX, GLYHGB, LIPR, LACTIC, CDP #### [address] [address] Wellness Director: Juan F Dominguez MD Chloride [Moles/Vol] 99 mmol/L Normal 98-107 [facility] Comment on above: Performed By: #### C MPX, GLYHGB, LIPR, LACTIC, CDP #### [address] [address] Wellness Director: Juan F Dominguez MD CO2 [Moles/Vol] 20 mmol/L Normal 20-[address] [facility] Comment on above: Performed By: #### C MPX, GLYHGB, LIPR, LACTIC, CDP #### [address] [address] Wellness Director: Juan F Dominguez MD Creatinine [Mass/Vol] 0.77 mg/dL Normal 0.70-1.20 [facility] Comment on above: Performed By: #### C MPX, GLYHGB, LIPR, LACTIC, CDP #### [address] [address] Wellness Director: Juan F Dominguez MD GFR, Amer >60 Normal >60 [facility] Comment on above: Performed By: #### C MPX, GLYHGB, LIPR, LACTIC, CDP #### [facility] [address] [place] [address] Wellness Director: Juan F Dominguez MD GFR,non Amer >60 Normal >60 [facility] Comment on above: Performed By: #### C MPX, GLYHGB, LIPR, LACTIC, CDP #### [facility] [address] [place] [address] Wellness Director: Juan F Dominguez MD Glucose [Mass/Vol] 86 mg/dL Normal 70-[address] [facility] Comment on above: Performed By: #### C MPX, GLYHGB, LIPR, LACTIC, CDP #### [address] [address] Wellness Director: Juan F Dominguez MD Potassium [Moles/Vol] 4.2 mmol/L Normal 3.7-5.3 [facility] Comment on above: Performed By: #### C MPX, GLYHGB, LIPR, LACTIC, CDP #### [facility] [address] [place] [address] Wellness Director: Juan F Dominguez MD Protein [Mass/Vol] 7.2 g/dL Normal 6.4-8.[address] [facility] Comment on above: Performed By: #### C MPX, GLYHGB, LIPR, LACTIC, CDP #### [facility] [address] [place] [address] Wellness Director: Juan F Dominguez MD Sodium [Moles/Vol] 134 mmol/L Low 135-[address] [facility] Comment on above: Performed By: #### C MPX, GLYHGB, LIPR, LACTIC, CDP #### [facility] [address] [place] [address] Wellness Director: Juan F Dominguez MD Urea nitrogen [Mass/Vol] 16 mg/dL Normal 8-[address] [facility] Comment on above: Performed By: #### C MPX, GLYHGB, LIPR, LACTIC, CDP #### [facility] [address] [place] [address] Wellness Director: Juan F Dominguez MD BUN/CRE Ratio NOT REPORTED Normal 9-[address] [facility] Comment on above: Performed By: #### C MPX, GLYHGB, LIPR, LACTIC, CDP #### [facility] [address] [place] [address] Wellness Director: Juan F Dominguez MD Staging: NOT REPORTED Normal [facility] Comment on above: Performed By: #### C MPX, GLYHGB, LIPR, LACTIC, CDP #### [address] [address] Wellness Director: Juan F Dominguez MD Drug Scr, Abuse, Uron 2019 Buprenorphrine, Ur NOT REPORTED Normal NEG [facility] Comment on above: Performed By: #### D ZEUS UA, UMICAO #### [facility] [address] [place] [address] Wellness Director: Juan F Dominguez MD MDMA, Urine NOT REPORTED Normal NEG [facility] Comment on above: Performed By: #### D AU UA, UMICAO #### [facility] [address] [place] [address] Wellness Director: Juan F Dominguez MD Methamphetamine, Ur NOT REPORTED Normal NEG [facility] Comment on above: Performed By: #### D AU UA, UMICAO #### [facility] [address] [place] [address] Wellness Director: Juan F Dominguez MD Propoxyphene,Urine NOT REPORTED Normal NEG [facility] Comment on above: Performed By: #### D ZEUS UA, UMICAO #### [facility] [address] [place] [address] Wellness Director: Juan F Dominguez MD Tricyclic antidepressants Screen Ql (U) NOT REPORTED Normal NEG [facility] Comment on above: Performed By: #### D ZEUS UA, UMICAO #### [facility] [address] [place] [address] Wellness Director: Juan F Dominguez MD Lactic Acidon 12-21-2019 Lactate [Moles/Vol] NOT REPORTED Normal [facility] Comment on above: Performed By: #### Artem SCHULZ UA, UMICAO #### [facility] [address] [place] [address] Wellness Director: Juan F Dominguez MD Lipid Profileon 12-21-2019 Cholesterol in VLDL [Mass/Vol] NOT REPORTED Normal 10-[address] [facility] Comment on above: Performed By: #### Artem SCHULZ UA, UMICAO #### [facility] [address] [place] [address] Wellness Director: Juan F Dominguez MD Urinalysis, Routineon 2019 Comment NOT REPORTED Normal [facility] Comment on above: Performed By: #### Artem SCHULZ UA, UMICAO #### [facility] [address] [place] [address] Wellness Director: Juan F Dominguez MD Urinalysis,Microon 0 Amorphous sediment LM Ql (Urine sed) NOT REPORTED Normal NONE [facility] Comment on above: Performed By: #### Artem SCHULZ UA, UMICAO #### [facility] [address] [place] [address] Wellness Director: Juan F Dominguez MD Bacteria LM.HPF (Urine sed) [#/Area] NOT REPORTED Normal NONE [facility] Comment on above: Performed By: #### D AU, UA, UMICAO #### [facility] [address] [place] [address] Wellness Director: Juan F Dominguez MD Crystals LM Nom (Urine sed) NOT REPORTED Normal NONE [facility] Comment on above: Performed By: #### D AU, UA, UMICAO #### [facility] [address] [place] [address] Wellness Director: Juan F Dominguez MD Epithelial, Renal NOT REPORTED Normal [address] [facility] Comment on above: Performed By: #### D AU, UA, UMICAO #### [facility] [address] [place] [address] Wellness Director: Juan F Dominguez MD Mucus Strands NOT REPORTED Normal [facility] Comment on above: Performed By: #### D AU, UA, UMICAO #### [facility] [address] [place] [address] Wellness Director: Juan F Dominguez MD Other Observations NOT REPORTED Normal NREQ [facility] Comment on above: Performed By: #### D AU, UA, UMICAO #### [facility] [address] [place] [address] Wellness Director: Juan F Dominguez MD Trichomonas NOT REPORTED Normal NONE [facility] Comment on above: Performed By: #### D AU, UA, UMICAO #### [facility] [address] [place] [address] Wellness Director: Juan F Dominguez MD Yeast LM Ql (Urine sed) NOT REPORTED Normal NONE [facility] Comment on above: Performed By: #### D AU, UA, UMICAO #### [facility] [address] [place] [phone] Wellness Director: Jua nF Dominguez MD Vital Signs Date Time Vital Sign Value Performing Clinician Facility 04-30-2024 12:00-0400 Body temperature 97.6 [degF] DO Simpson Corson Work Phone: [facility] 04-30-2024 12:00-0400 Diastolic blood pressure 52 mm[Hg] DO Simpson Corson Work Phone: [facility] 04-30-2024 12:00-0400 Heart rate 56 /min DO Simpson Corson Work Phone: [facility] 04-30-2024 12:00-0400 Respiratory rate 18 /min DO Simpson Corson Work Phone: [facility] 04-30-2024 12:00-0400 SaO2% (BldA) [Mass fraction] 98 % DO Simpson Corson Work Phone: [facility] 04-30-2024 12:00-0400 Systolic blood pressure 99 mm[Hg] DO Simpson Corson Work Phone: [facility] 04-29-2024 15:30-0400 Body temperature 97.8 [degF] DO Sam Corson Work Phone: [facility] 04-29-2024 15:30-0400 Diastolic blood pressure 80 mm[Hg] DO Simpson Corson Work Phone: [facility] 04-29-2024 15:30-0400 Heart rate 66 /min DO Sam Corson Work Phone: [facility] 04-29-2024 15:30-0400 Respiratory rate 18 /min DO Sam Corson Work Phone: [facility] 04-29-2024 15:30-0400 SaO2% (BldA) [Mass fraction] 97 % DO Simpson Corson Work Phone: [facility] 04-29-2024 15:30-0400 Systolic blood pressure 148 mm[Hg] DO Simpson Corson Work Phone: [facility] 04-29-2024 06:00-0400 Body weight 67.5 kg DO Simpson Corson Work Phone: [facility] 04-27-2024 05:17-0400 Body height 175.26 cm DO Simpson Corson Work Phone: [facility] 04-23-2024 08:28-0400 Body temperature 97.8 [degF] DO Sam Corson Work Phone: [facility] 04-23-2024 08:28-0400 Body weight 70.3 kg DO Simpson Corson Work Phone: [facility] 04-23-2024 08:28-0400 Diastolic blood pressure 80 mm[Hg] DO Simpson Corson Work Phone: [facility] 04-23-2024 08:28-0400 Heart rate 92 /min DO Simpson Corson Work Phone: [facility] 04-23-2024 08:28-0400 Respiratory rate 16 /min DO Simpson Corson Work Phone: [facility] 04-23-2024 08:28-0400 SaO2% (BldA) [Mass fraction] 97 % DO Sam Corson Work Phone: [facility] 04-23-2024 08:28-0400 Systolic blood pressure 132 mm[Hg] DO Sam Corson Work Phone: [facility] 04-18-2024 11:35-0400 Body temperature 97.8 [degF] DO Simpson Corson Work Phone: [facility] 04-18-2024 11:35-0400 Diastolic blood pressure 52 mm[Hg] DO Simpson Corson Work Phone: [facility] 04-18-2024 11:35-0400 Heart rate 72 /min DO Simpson Corson Work Phone: [facility] 04-18-2024 11:35-0400 Respiratory rate 18 /min DO Sam Corson Work Phone: [facility] 04-18-2024 11:35-0400 SaO2% (BldA) [Mass fraction] 98 % DO Sam Corson Work Phone: [facility] 04-18-2024 11:35-0400 Systolic blood pressure 90 mm[Hg] DO Sam Corson Work Phone: [facility] 04-01-2024 11:08-0400 Body height 175.26 cm DO Sam Corson Work Phone: [facility] 04-01-2024 11:08-0400 Body weight 75.29 kg DO Sam Corson Work Phone: [facility] 04-01-2024 08:29-0400 Body height 175.26 cm DO Sam Corson Work Phone: [facility] 04-01-2024 08:29-0400 Body mass index (BMI) [Ratio] 24.5 kg/m2 DO Sam Corson Work Phone: [facility] 04-01-2024 08:29-0400 Body temperature 98 [degF] DO Sam Cooney Work Phone: [facility] 04-01-2024 08:29-0400 Diastolic blood pressure 66 mm[Hg] DO Sam Corson Work Phone: [facility] 04-01-2024 08:29-0400 Heart rate 90 /min DO Sam Corson Work Phone: [facility] 04-01-2024 08:29-0400 Respiratory rate 20 /min DO Sam Corson Work Phone: [facility] 04-01-2024 08:29-0400 SaO2% (BldA) [Mass fraction] 96 % DO Sam Corson Work Phone: [facility] 04-01-2024 08:29-0400 Systolic blood pressure 104 mm[Hg] DO Sam Corson Work Phone: [facility] 03-25-2024 08:42-0400 Body temperature 97.9 [degF] DO Simpson Corson Work Phone: [facility] 03-25-2024 08:42-0400 Diastolic blood pressure 60 mm[Hg] DO Simpson Corson Work Phone: [facility] 03-25-2024 08:42-0400 Heart rate 70 /min DO Simpson Corson Work Phone: [facility] 03-25-2024 08:42-0400 Respiratory rate 18 /min DO Simpson Corson Work Phone: [facility] 03-25-2024 08:42-0400 SaO2% (BldA) [Mass fraction] 98 % DO Simpson Corson Work Phone: [facility] 03-25-2024 08:42-0400 Systolic blood pressure 106 mm[Hg] DO Simpson Corson Work Phone: [facility] 03-20-2024 09:23-0400 Body weight 74.7 kg DO Simpson Corson Work Phone: [facility] 03-20-2024 08:23-0400 Body temperature 98 [degF] DO Sam Corson Work Phone: [facility] 03-20-2024 08:23-0400 Diastolic blood pressure 72 mm[Hg] DO Simpson Corson Work Phone: [facility] 03-20-2024 08:23-0400 Heart rate 86 /min DO Sam Corson Work Phone: [facility] 03-20-2024 08:23-0400 Respiratory rate 20 /min DO Simpson Corson Work Phone: [facility] 03-20-2024 08:23-0400 SaO2% (BldA) [Mass fraction] 97 % DO Simpson Corson Work Phone: [facility] 03-20-2024 08:23-0400 Systolic blood pressure 121 mm[Hg] DO Simpson Corson Work Phone: [facility] 03-14-2024 08:53-0400 Body temperature 98.2 [degF] DO Sam Corson Work Phone: [facility] 03-14-2024 08:53-0400 Body weight 71.07 kg DO Simpson Corson Work Phone: [facility] 03-14-2024 08:53-0400 Diastolic blood pressure 48 mm[Hg] DO Sam Corson Work Phone: [facility] 03-14-2024 08:53-0400 Heart rate 78 /min DO Simpson Corson Work Phone: [facility] 03-14-2024 08:53-0400 Respiratory rate 18 /min DO Sam Corson Work Phone: [facility] 03-14-2024 08:53-0400 SaO2% (BldA) [Mass fraction] 95 % DO Sam Corson Work Phone: [facility] 03-14-2024 08:53-0400 Systolic blood pressure 84 mm[Hg] DO Simpson Corson Work Phone: [facility] 03-09-2024 15:11-0400 Body temperature 97.9 [degF] DO Sam Corson Work Phone: [facility] 03-09-2024 15:11-0400 Diastolic blood pressure 74 mm[Hg] DO Sam Corson Work Phone: [facility] 03-09-2024 15:11-0400 Heart rate 65 /min DO Sam Corson Work Phone: [facility] 03-09-2024 15:11-0400 Respiratory rate 16 /min DO Simpson Corson Work Phone: [facility] 03-09-2024 15:11-0400 SaO2% (BldA) [Mass fraction] 97 % DO Simpson Corson Work Phone: [facility] 03-09-2024 15:11-0400 Systolic blood pressure 135 mm[Hg] DO Sam Corson Work Phone: [facility] 03-09-2024 06:00-0400 Body weight 77.1 kg DO Sam Corson Work Phone: [facility] 03-07-2024 09:29-0400 Body height 175.26 cm DO Simpson Corson Work Phone: [facility] 03-05-2024 19:10-0400 Body temperature 97.4 [degF] DO Sam Corson Work Phone: [facility] 03-05-2024 19:10-0400 Diastolic blood pressure 63 mm[Hg] DO Simpson Corson Work Phone: [facility] 03-05-2024 19:10-0400 Heart rate 75 /min DO Simpson Corson Work Phone: [facility] 03-05-2024 19:10-0400 Respiratory rate 21 /min DO Sam Corson Work Phone: [facility] 03-05-2024 19:10-0400 SaO2% (BldA) [Mass fraction] 98 % DO Simpson Corson Work Phone: [facility] 03-05-2024 19:10-0400 Systolic blood pressure 135 mm[Hg] DO Simpson Corson Work Phone: [facility] 03-05-2024 18:45-0400 Body height 175.26 cm DO Simpson Corson Work Phone: [facility] 03-05-2024 18:45-0400 Body weight 76.2 kg DO Sam Corson Work Phone: [facility] 03-05-2024 11:31-0400 Diastolic blood pressure 66 mm[Hg] DO Sam Corson Work Phone: [facility] 03-05-2024 11:31-0400 Systolic blood pressure 82 mm[Hg] DO Sam Corson Work Phone: [facility] 03-05-2024 11:30-0400 Heart rate 74 /min DO Sam Corson Work Phone: [facility] 03-05-2024 11:30-0400 Respiratory rate 18 /min DO Sam Corson Work Phone: [facility] 03-05-2024 11:30-0400 SaO2% (BldA) [Mass fraction] 98 % DO Simpson Corson Work Phone: [facility] 03-03-2024 13:45-0400 Body weight 78.01 kg DO Simpson Corson Work Phone: [facility] 03-03-2024 13:45-0400 Diastolic blood pressure 63 mm[Hg] DO Simpson Corson Work Phone: [facility] 03-03-2024 13:45-0400 Heart rate 71 /min DO Simpson Corson Work Phone: [facility] 03-03-2024 13:45-0400 Respiratory rate 16 /min DO Simpson Corson Work Phone: [facility] 03-03-2024 13:45-0400 SaO2% (BldA) [Mass fraction] 99 % DO Sam Corson Work Phone: [facility] 03-03-2024 13:45-0400 Systolic blood pressure 112 mm[Hg] DO Simpson Corson Work Phone: [facility] 02-21-2024 14:59-0400 Body height 175.26 cm DO Simpson Corson Work Phone: [facility] 02-21-2024 14:59-0400 Body mass index (BMI) [Ratio] 25.4 kg/m2 DO Sam Corson Work Phone: [facility] 02-21-2024 14:59-0400 Body temperature 97.7 [degF] DO Simpson Corson Work Phone: [facility] 02-21-2024 14:59-0400 Body weight 78.01 kg DO Sam Corson Work Phone: [facility] 02-21-2024 14:59-0400 Diastolic blood pressure 58 mm[Hg] DO Sam Corson Work Phone: [facility] 02-21-2024 14:59-0400 Heart rate 74 /min DO Sam Corson Work Phone: [facility] 02-21-2024 14:59-0400 Respiratory rate 202 /min DO Sam Corson Work Phone: [facility] 02-21-2024 14:59-0400 SaO2% (BldA) [Mass fraction] 100 % DO Sam Corson Work Phone: [facility] 02-21-2024 14:59-0400 Systolic blood pressure 93 mm[Hg] DO Sam Corson Work Phone: [facility] 12-03-2023 15:25-0400 Blood Pressure Location Trung FERGUSON [facility] 12-03-2023 15:25-0400 Diastolic blood pressure 74 mm[Hg] Trung FERGUSON [facility] 12-03-2023 15:25-0400 Heart rate 76 /min Trung FERGUSON [facility] 12-03-2023 15:25-0400 Respiratory rate 16 /min Trung FERGUSON [facility] 12-03-2023 15:25-0400 Systolic blood pressure 137 mm[Hg] Trung FERGUSON [facility] 10-22-2023 11:54-0500 Body height 175.3 cm Za Hernández MD Work Phone: [facility] 10-22-2023 11:54-0500 Body mass index (BMI) [Ratio] 27.17 kg/m2 Za Hernández MD Work Phone: [facility] 10-22-2023 11:54-0500 Body weight 83.46 kg Za Hernández MD Work Phone: [facility] 10-22-2023 11:54-0500 Diastolic blood pressure 72 mm[Hg] Za Hernández MD Work Phone: [facility] 10-22-2023 11:54-0500 Heart rate 56 /min Za Hernández MD Work Phone: [facility] 10-22-2023 11:54-0500 Systolic blood pressure 124 mm[Hg] Za Hernández MD Work Phone: [facility] 08-28-2023 12:20-0500 Diastolic blood pressure 78 mm[Hg] Ryan Cobb MD Work Phone: [facility] 08-28-2023 12:20-0500 Heart rate 60 /min Ryan Cobb MD Work Phone: [facility] 08-28-2023 12:20-0500 Respiratory rate 14 /min Ryan Cobb MD Work Phone: [facility] 08-28-2023 12:20-0500 SaO2% (BldA) [Mass fraction] 98 % Ryan Cobb MD Work Phone: [facility] 08-28-2023 12:20-0500 Systolic blood pressure 137 mm[Hg] Ryan Cobb MD Work Phone: [facility] 08-22-2023 08:48-0500 Body height 175.3 cm Ryan Cobb MD Work Phone: [facility] 08-22-2023 08:48-0500 Body mass index (BMI) [Ratio] 25.84 kg/m2 Ryan Cobb MD Work Phone: [facility] 08-22-2023 08:48-0500 Body temperature 96.01 [degF] Ryan Cobb MD Work Phone: [facility] 08-22-2023 08:48-0500 Body weight 79.38 kg Ryan Cobb MD Work Phone: [facility] 08-22-2023 08:48-0500 Diastolic blood pressure 79 mm[Hg] Ryan Cobb MD Work Phone: [facility] 08-22-2023 08:48-0500 Heart rate 60 /min Ryan Cobb MD Work Phone: [facility] 08-22-2023 08:48-0500 Respiratory rate 16 /min Ryan Cobb MD Work Phone: [facility] 08-22-2023 08:48-0500 SaO2% (BldA) [Mass fraction] 96 % Ryan Cobb MD Work Phone: [facility] 08-22-2023 08:48-0500 Systolic blood pressure 151 mm[Hg] Ryan Cobb MD Work Phone: [facility] 07-09-2023 11:04-0400 Diastolic blood pressure 78 mm[Hg] Trung FERGUSON [facility] 07-09-2023 11:04-0400 Heart rate 68 /min Trung FERGUSON [facility] 07-09-2023 11:04-0400 Respiratory rate 16 /min Trung FERGUSON [facility] 07-09-2023 11:04-0400 Systolic blood pressure 132 mm[Hg] Trung FERGUSON [facility] 06-11-2023 11:27-0400 Diastolic blood pressure 60 mm[Hg] Sam Meneses Corson Work Phone: [facility] DO Work Phone: 06-11-2023 11:27-0400 Systolic blood pressure 118 mm[Hg] Sam Meneses Corson Work Phone: [facility] DO Work Phone: 06-11-2023 10:51-0400 Body height 175.26 cm Sam Meneses Corson Work Phone: [facility] DO Work Phone: 06-11-2023 10:51-0400 Body mass index (BMI) [Ratio] 26.29 kg/m2 Sam Meneses Corson Work Phone: [facility] DO Work Phone: 06-11-2023 10:51-0400 Body surface area Derived from formula 1.97 m2 Sam Meneses Corson Work Phone: [facility] DO Work Phone: 06-11-2023 10:51-0400 Body weight 80.74 kg Sam Meneses Corson Work Phone: [facility] DO Work Phone: 06-11-2023 10:51-0400 Diastolic blood pressure 76 mm[Hg] Sam Meneses Corson Work Phone: [facility] DO Work Phone: 06-11-2023 10:51-0400 Heart rate 66 /min Sam Meneses Corson Work Phone: [facility] DO Work Phone: 06-11-2023 10:51-0400 Systolic blood pressure 128 mm[Hg] Sam Meneses Corson Work Phone: [facility] DO Work Phone: 04-03-2023 09:05-0400 Blood Pressure Location CHARLOTTEKIMBERLY ESQUIVELRY [facility] 04-03-2023 09:05-0400 Diastolic blood pressure 56 mm[Hg] CHARLOTTE RITESH [facility] 04-03-2023 09:05-0400 Heart rate 58 /min CHARLOTTE RITESH [facility] 04-03-2023 09:05-0400 Respiratory rate 16 /min CHARLOTTE RITESH [facility] 04-03-2023 09:05-0400 Systolic blood pressure 96 mm[Hg] CHARLOTTE RITESH [facility] 02-26-2023 12:14-0400 Diastolic blood pressure 40 mm[Hg] Sam Meneses Corson Work Phone: [facility] DO Work Phone: 02-26-2023 12:14-0400 Systolic blood pressure 82 mm[Hg] Sam Meneses Corson Work Phone: [facility] DO Work Phone: 02-26-2023 12:14-0400 50 1 Sam Meneses Corson Work Phone: [facility] DO Work Phone: Comment on above: [facility] 02-26-2023 11:37-0400 Body height 175.26 cm Sam Cooney Work Phone: [facility] DO Work Phone: 02-26-2023 11:37-0400 Body mass index (BMI) [Ratio] 25.93 kg/m2 Sam Meneses Corson Work Phone: [facility] DO Work Phone: 02-26-2023 11:37-0400 Body surface area Derived from formula 1.95 m2 Sam Cooney Work Phone: [facility] DO Work Phone: 02-26-2023 11:37-0400 Body weight 79.65 kg Sam Cooney Work Phone: [facility] DO Work Phone: 02-26-2023 11:37-0400 Diastolic blood pressure 52 mm[Hg] Sam Meneses Corson Work Phone: [facility] DO Work Phone: 02-26-2023 11:37-0400 Heart rate 56 /min Sam Cooney Work Phone: [facility] DO Work Phone: 02-26-2023 11:37-0400 Systolic blood pressure 98 mm[Hg] Sam Meneses Corson Work Phone: [facility] DO Work Phone: 01-23-2023 14:12-0400 Blood Pressure Location CHARLOTTE BAKER [facility] 01-23-2023 14:12-0400 Diastolic blood pressure 76 mm[Hg] CHARLOTTE BAKER [facility] 01-23-2023 14:12-0400 Heart rate 78 /min CHARLOTTE BAKER [facility] 01-23-2023 14:12-0400 Respiratory rate 16 /min CHARLOTTE RITESH [facility] 01-23-2023 14:12-0400 Systolic blood pressure 130 mm[Hg] CHARLOTTE RITESH [facility] 01-01-2023 11:45-0400 Blood Pressure Location Trung FERGUSON [facility] 01-01-2023 11:45-0400 Diastolic blood pressure 88 mm[Hg] Trung FERGUSON [facility] 01-01-2023 11:45-0400 Heart rate 67 /min Trung FERGUSON [facility] 01-01-2023 11:45-0400 Respiratory rate 16 /min Trung FERGUSON [facility] 01-01-2023 11:45-0400 Systolic blood pressure 135 mm[Hg] Trung FERGUSON [facility] 11-03-2022 13:02-0500 Blood Pressure Location Trung FERGUSON [facility] 11-03-2022 13:02-0500 Diastolic blood pressure 74 mm[Hg] Trung FERGUSON [facility] 11-03-2022 13:02-0500 Heart rate 68 /min Trung FERGUSON [facility] 11-03-2022 13:02-0500 Respiratory rate 16 /min Trung FERGUSON [facility] 11-03-2022 13:02-0500 Systolic blood pressure 128 mm[Hg] Trung FERGUSON [facility] 10-09-2022 13:22-0500 Diastolic blood pressure 74 mm[Hg] Sam Cooney Work Phone: [facility] DO Work Phone: 10-09-2022 13:22-0500 Systolic blood pressure 136 mm[Hg] Sam Cooney Work Phone: [facility] DO Work Phone: 10-09-2022 13:05-0500 Body height 175.26 cm Sam Cooney Work Phone: [facility] DO Work Phone: 10-09-2022 13:05-0500 Body mass index (BMI) [Ratio] 26.58 kg/m2 Sam Cooney Work Phone: [facility] DO Work Phone: 10-09-2022 13:05-0500 Body surface area Derived from formula 1.98 m2 Sam Cooney Work Phone: [facility] DO Work Phone: 10-09-2022 13:05-0500 Body weight 81.65 kg Sam Meneses Corson Work Phone: [facility] DO Work Phone: 10-09-2022 13:05-0500 Diastolic blood pressure 72 mm[Hg] Sam Meneses Corson Work Phone: [facility] DO Work Phone: 10-09-2022 13:05-0500 Heart rate 84 /min Sam Cooney Work Phone: [facility] DO Work Phone: 10-09-2022 13:05-0500 Systolic blood pressure 142 mm[Hg] Sam Cooney Work Phone: [facility] DO Work Phone: 10-02-2022 15:48-0500 Body height 175.26 cm Sam Meneses Corson Work Phone: [facility] DO Work Phone: 10-02-2022 15:48-0500 Body mass index (BMI) [Ratio] 26.43 kg/m2 Sam Cooney Work Phone: [facility] DO Work Phone: 10-02-2022 15:48-0500 Body surface area Derived from formula 1.97 m2 Sam Meneses Corson Work Phone: [facility] DO Work Phone: 10-02-2022 15:48-0500 Body weight 81.19 kg Sam Cooney Work Phone: [facility] DO Work Phone: 10-02-2022 15:48-0500 Diastolic blood pressure 82 mm[Hg] Sam Cooney Work Phone: [facility] DO Work Phone: 10-02-2022 15:48-0500 Heart rate 68 /min Sam Cooney Work Phone: [facility] DO Work Phone: 10-02-2022 15:48-0500 Systolic blood pressure 134 mm[Hg] Sam Meneses Corson Work Phone: [facility] DO Work Phone: 10-02-2022 11:32-0500 Blood Pressure Location Trung FERGUSON [facility] 10-02-2022 11:32-0500 Diastolic blood pressure 75 mm[Hg] Trung FERGUSON [facility] 10-02-2022 11:32-0500 Heart rate 70 /min Trung FERGUSON [facility] 10-02-2022 11:32-0500 Respiratory rate 16 /min Trung FERGUSON [facility] 10-02-2022 11:32-0500 Systolic blood pressure 134 mm[Hg] Trung FERGUSON [facility] 09-11-2022 13:07-0500 Diastolic blood pressure 84 mm[Hg] Sam Meneses Corson Work Phone: [facility] DO Work Phone: 09-11-2022 13:07-0500 Diastolic blood pressure 92 mm[Hg] Sam Meneses Corson Work Phone: [facility] DO Work Phone: 09-11-2022 13:07-0500 Systolic blood pressure 144 mm[Hg] Sam Gideon Corson Work Phone: [facility] DO Work Phone: 09-11-2022 13:07-0500 Systolic blood pressure 148 mm[Hg] Sam Gideon Corson Work Phone: [facility] DO Work Phone: 09-11-2022 13:00-0500 Body height 175.26 cm Sam Meneses Corson Work Phone: [facility] DO Work Phone: 09-11-2022 13:00-0500 Body mass index (BMI) [Ratio] 25.99 kg/m2 Sam Meneses Corson Work Phone: [facility] DO Work Phone: 09-11-2022 13:00-0500 Body surface area Derived from formula 1.96 m2 Sam Meneses Corson Work Phone: [facility] DO Work Phone: 09-11-2022 13:00-0500 Body weight 79.83 kg Sam Meneses Corson Work Phone: [facility] DO Work Phone: 09-11-2022 13:00-0500 Heart rate 62 /min Sam Meneses Corson Work Phone: [facility] DO Work Phone: 08-28-2022 13:16-0500 Body height 175.26 cm Sam Meneses Corson Work Phone: [facility] DO Work Phone: 08-28-2022 13:16-0500 Body mass index (BMI) [Ratio] 25.84 kg/m2 Sam Meneses Corson Work Phone: [facility] DO Work Phone: 08-28-2022 13:16-0500 Body surface area Derived from formula 1.95 m2 Sam Meneses Corson Work Phone: [facility] DO Work Phone: 08-28-2022 13:16-0500 Body weight 79.38 kg Sam Meneses Corson Work Phone: [facility] DO Work Phone: 08-28-2022 13:16-0500 Diastolic blood pressure 94 mm[Hg] Sam Cooney Work Phone: [facility] DO Work Phone: 08-28-2022 13:16-0500 Heart rate 88 /min Sam Cooney Work Phone: [facility] DO Work Phone: 08-28-2022 13:16-0500 Systolic blood pressure 152 mm[Hg] Sam Meneses Corson Work Phone: [facility] DO Work Phone: 06-15-2022 10:12-0400 Body height 175.26 cm Sam Cooney Work Phone: [facility] DO Work Phone: 06-15-2022 10:12-0400 Body mass index (BMI) [Ratio] 24.81 kg/m2 Sam Cooney Work Phone: [facility] DO Work Phone: 06-15-2022 10:12-0400 Body surface area Derived from formula 1.92 m2 Sam Cooney Work Phone: [facility] DO Work Phone: 06-15-2022 10:12-0400 Body weight 76.2 kg Sam Cooney Work Phone: [facility] DO Work Phone: 06-15-2022 10:12-0400 Diastolic blood pressure 82 mm[Hg] Sam Cooney Work Phone: [facility] DO Work Phone: 06-15-2022 10:12-0400 Heart rate 64 /min Sam Meneses Corson Work Phone: [facility] DO Work Phone: 06-15-2022 10:12-0400 Systolic blood pressure 160 mm[Hg] Sam Cooney Work Phone: [facility] DO Work Phone: 06-15-2022 10:12-0400 4 1 Sam Cooney Work Phone: [facility] DO Work Phone: Comment on above: [id number] TS 04-24-2022 11:18-0400 Blood Pressure Location Trung FERGUSON [facility] 04-24-2022 11:18-0400 Diastolic blood pressure 86 mm[Hg] Trung FERGUSON [facility] 04-24-2022 11:18-0400 Heart rate 74 /min Trung FERGUSON [facility] 04-24-2022 11:18-0400 Respiratory rate 16 /min Trung FERGUSON [facility] 04-24-2022 11:18-0400 Systolic blood pressure 134 mm[Hg] Trung FERGUSON [facility] 01-23-2022 12:57-0400 Blood Pressure Location Trung FERGUSON [facility] 01-23-2022 12:57-0400 Diastolic blood pressure 87 mm[Hg] Trung FERGUSON [facility] 01-23-2022 12:57-0400 Heart rate 70 /min Trung FERGUSON [facility] 01-23-2022 12:57-0400 Respiratory rate 16 /min Trung FERGUSON [facility] 01-23-2022 12:57-0400 Systolic blood pressure 139 mm[Hg] Trung FERGUSON [facility] 08-31-2021 13:24-0500 Body height 175.26 cm Sam Cooney Work Phone: [facility] DO Work Phone: 08-31-2021 13:24-0500 Body mass index (BMI) [Ratio] 27.02 kg/m2 Sam Cooney Work Phone: [facility] DO Work Phone: 08-31-2021 13:24-0500 Body surface area Derived from formula 1.99 m2 Sam Cooney Work Phone: [facility] DO Work Phone: 08-31-2021 13:24-0500 Body weight 83.01 kg Sam Meneses Corson Work Phone: [facility] DO Work Phone: 08-31-2021 13:24-0500 Diastolic blood pressure 88 mm[Hg] Sam Meneses Corson Work Phone: [facility] DO Work Phone: 08-31-2021 13:24-0500 Heart rate 74 /min Sam Cooney Work Phone: [facility] DO Work Phone: 08-31-2021 13:24-0500 Systolic blood pressure 142 mm[Hg] Sam Cooney Work Phone: [facility] DO Work Phone: 08-03-2021 09:57-0500 Body height 175.26 cm Sam Cooney Work Phone: [facility] DO Work Phone: 08-03-2021 09:57-0500 Body mass index (BMI) [Ratio] 26.29 kg/m2 Sam Cooney Work Phone: [facility] DO Work Phone: 08-03-2021 09:57-0500 Body surface area Derived from formula 1.97 m2 Sam Cooney Work Phone: [facility] DO Work Phone: 08-03-2021 09:57-0500 Body weight 80.74 kg Sam Cooney Work Phone: [facility] DO Work Phone: 08-03-2021 09:57-0500 Diastolic blood pressure 90 mm[Hg] Sam Cooney Work Phone: [facility] DO Work Phone: 08-03-2021 09:57-0500 Heart rate 66 /min Sam Cooney Work Phone: [facility] DO Work Phone: 08-03-2021 09:57-0500 Systolic blood pressure 170 mm[Hg] Sam Cooney Work Phone: [facility] DO Work Phone: Encounters Encounter Date Encounter Type Care Provider Facility Start: 06-16-2024 ambulatory Trung FERGUSON [facility] Start: 04-30-2024 End: 04-30-2024 ambulatory DO Sam Cooney Work Phone: [facility] Work Phone: Start: 04-30-2024 End: 04-30-2024 Patient encounter procedure DO Sam Cors[facility] Work Phone: Start: 04-30-2024 End: 04-30-2024 Patient encounter procedure DO Sam Cooney Work Phone: [facility] [place] Work Phone: Start: 04-30-2024 End: 04-30-2024 ambulatory DO Sam Cooney Work Phone: [facility] Work Phone: Start: 04-30-2024 Registered Recurring DO aSm Cooney Work Phone: [facility] Work Phone: Start: 04-30-2024 Non-patient / Non-visit DO [facility]: Start: 04-27-2024 Non-patient / Non-visit DO Rox licea Corson Work Phone: [facility] Work Phone: Start: 04-27-2024 End: 04-29-2024 Evaluation and management of inpatient DO Sam Cooney Work Phone: [facility] [place] [facility] Work Phone: Start: 04-23-2024 Registered Recurring DO Sam Corson Work Phone: [facility] Work Phone: Start: 04-23-2024 End: 04-23-2024 ambulatory DO Sam Corson Work Phone: [facility] Work Phone: Start: 04-23-2024 End: 04-23-2024 Patient encounter procedure DO Sam Corson [facility] Work Phone: Start: 04-01-2024 Registered Recurring DO Sam Corson Work Phone: [facility] Work Phone: Start: 04-01-2024 End: 04-01-2024 ambulatory DO Sam Corson Work Phone: [facility] Work Phone: Start: 04-01-2024 End: 04-01-2024 Patient encounter procedure DO Sam Corson Work Phone: [facility] Work Phone: Start: 03-20-2024 Registered Recurring DO Sam Corson Work Phone: [facility] Work Phone: Start: 03-20-2024 End: 03-20-2024 ambulatory DO Sam Corson Work Phone: [facility] Work Phone: Start: 03-20-2024 End: 03-20-2024 Patient encounter procedure DO Sam Corson Work Phone: [facility] Work Phone: Start: 03-17-2024 End: 03-17-2024 Patient encounter procedure DO Simpson Corson Work Phone: [facility] Start: 03-17-2024 End: 03-17-2024 ambulatory DO Simpson Corson Work Phone: [facility] Work Phone: Start: 03-14-2024 Registered Recurring DO Sam Cooney Work Phone: [facility] Work Phone: Start: 03-05-2024 End: 03-09-2024 Evaluation and management of inpatient DO Sam Cooney Work Phone: [facility] [place] [facility] Work Phone: Start: 03-05-2024 End: 03-05-2024 Admission to same day surgery center DO Sam Cooney Work Phone: [facility] [place] Work Phone: Start: 03-05-2024 End: 03-05-2024 ambulatory DO Sam Cooney Work Phone: [facility] Work Phone: Start: 03-03-2024 Registered Recurring DO Sam Cooney Work Phone: [facility] Work Phone: Start: 02-21-2024 End: 02-21-2024 ambulatory DO Sam Cooney Work Phone: [facility] Work Phone: Start: 02-21-2024 End: 02-21-2024 Patient encounter procedure DO Sam Cooney Work Phone: [facility] Work Phone: Start: 02-21-2024 Registered Recurring DO Sam Cooney Work Phone: [facility] Work Phone: Start: 02-11-2024 End: 02-11-2024 ambulatory GRACE VAZQUEZ Not Available Start: 01-15-2024 End: 01-15-2024 ambulatory RXOANNE Jason [facility] Start: 12-28-2023 ambulatory SAM COONEY [facility] Start: 12-28-2023 End: 12-29-2023 ambulatory RYAN Terrence [facility] Start: 12-28-2023 End: 12-28-2023 Subsequent hospital visit by physician Fatemeh [id number] [facility] Comment on above: Atrial fibrillation, unspecified type (CMS/HCC) Start: 12-03-2023 End: 12-04-2023 ambulatory Trung FERGUSON Facility:[facility] Start: 12-03-2023 End: 12-03-2023 Patient encounter procedure Trung FERGUSON [facility] Start: 11-20-2023 ambulatory GUNNAR FULLER DO Facility:[id number] Start: 11-07-2023 End: 11-07-2023 ambulatory CAMILA ZEPEDA MD Facility:[id number] Start: 11-06-2023 Chart abstracting Kylee Arreguin DPM Work Phone: [facility] Start: 10-22-2023 End: 10-22-2023 Office outpatient visit 25 minutes Za Hernández MD Work Phone: [facility] Comment on above: Unspecified mood (af fective) disorder (CMS/HCC) (Primary Dx); Paroxysmal atrial fibrillation (CMS/HCC); Former smoker; Encounter for pre-operative cardiovascular clearance; Presence of Watchman left atrial appendage closure device; Paroxysmal atrial fibrillation with RVR (CMS/HCC); Mixed hyperlipidemia; Primary hypertension; Pain in joint of left shoulder Start: 10-22-2023 End: 10-22-2023 Patient encounter status Za Hernández MD Work Phone: [facility] Work Phone: Start: 10-22-2023 End: 10-22-2023 ambulatory [facility] Start: 10-22-2023 End: 10-22-2023 Encounter for preprocedural cardiovascular examination [facility] Start: 09-10-2023 End: 09-10-2023 ambulatory DO Sam Cooney Work Phone: [facility] Work Phone: Start: 09-10-2023 End: 09-10-2023 Patient encounter procedure DO Sam Cooney Work Phone: [facility] Start: 08-28-2023 End: 08-28-2023 Subsequent hospital visit by physician Ryan Cobb MD Work Phone: [facility] Comment on above: Atrial fibrillation (CMS/HCC) (Primary Dx); Chronic atrial fibrillation, unspecified (CMS/HCC); Presence of Watchman left atrial appendage closure device Start: 08-24-2023 Evaluation and management of inpatient [facility] Start: 08-22-2023 End: 08-22-2023 ambulatory [facility] Start: 08-22-2023 End: 08-22-2023 Office outpatient new 45 minutes Ryan Cobb MD Work Phone: [facility] Comment on above: Paroxysmal atrial fi brillation (CMS/HCC) (Primary Dx) Start: 08-13-2023 End: 08-13-2023 ambulatory KYLEE RAREGUIN Not Available Start: 08-09-2023 End: 08-09-2023 Patient encounter procedure DO Sam Cooney Work Phone: [facility] Start: 08-09-2023 End: 08-09-2023 ambulatory DO Sam Cooney Work Phone: [facility] Work Phone: Start: 07-31-2023 End: 08-01-2023 ambulatory PURNIMA DAVIDSON JR Facility:[facility] Start: 07-31-2023 Encounter for other preprocedural examination PURNIMA DAVIDSON JR [facility] Start: 07-31-2023 End: 08-01-2023 ambulatory SHERLEY CHAVEZ Not Available Start: 07-09-2023 End: 07-10-2023 ambulatory Trung FERGUSON Facility:[facility] Start: 07-09-2023 End: 07-09-2023 ambulatory Za Hernández Facility:[facility] Start: 07-09-2023 End: 07-09-2023 Patient encounter procedure Trung FERGUSON [facility] Start: 06-11-2023 Office outpatient vi sit 25 minutes Sam Cooney Work Phone: [facility] DO Work Phone: Start: 06-11-2023 ambulatory ZA HERNÁNDEZ Facility:[id number] Start: 06-07-[address] Sam Cooney Facility:[id number] Start: 06-07-2023 End: 06-07-2023 Patient encounter procedure DO Sam Cooney Work Phone: [facility] Start: 06-07-2023 End: 06-07-2023 ambulatory DO Sam Cooney Work Phone: [facility] Work Phone: Start: 05-08-[address] Sam Cooney Facility:[id number] Start: 05-07-2023 End: 05-07-2023 Patient encounter procedure DO Sam Cooney Work Phone: [facility] Start: 05-07-2023 End: 05-07-2023 ambulatory DO Sam Cooney Work Phone: [facility] Work Phone: Start: 04-03-2023 End: 04-04-2023 ambulatory CHARLOTTE BAKER Facility: [facility] Start: 04-03-2023 End: 04-03-2023 Patient encounter procedure CHARLOTTE BAKER [facility] Start: 02-26-2023 ambulatory Ms. Loulou Arreguin Facility: Start: 02-26-2023 Office outpatient vi sit 25 minutes Sam Gideon Eros Work Phone: [facility] DO Work Phone: Start: 02-26-2023 Patient encounter procedure Sam Meneses Eros Work Phone: [facility] DO Work Phone: Start: 01-23-2023 End: 01-24-2023 ambulatory DO Simpson Corson Work Phone: [facility] Work Phone: Start: 01-23-2023 End: 01-23-2023 Patient encounter procedure CHARLOTTE Gideon ESQUIVELRY [facility] Start: 01-22-2023 End: 01-22-2023 Patient encounter procedure DO Sam Corson Work Phone: [facility] Start: 01-22-2023 End: 01-22-2023 ambulatory DO Simpson Corson Work Phone: [facility] Work Phone: Start: 01-01-2023 End: 01-02-2023 ambulatory Trung FERGUSON Facility:[facility] [place] Start: 01-01-2023 End: 01-01-2023 Patient encounter procedure Trung FERGUSON [facility] Start: 12-08-[address] Sam Cooney Facility:[id number] Start: 12-08-2022 End: 12-08-2022 ambulatory DO Sam Corson Work Phone: [facility] Work Phone: Start: 12-08-2022 End: 12-08-2022 Patient encounter procedure DO Sam Cooney Work Phone: [facility] Start: 11-17-2022 Patient encounter procedure Sam Cooney Work Phone: [facility] 250 DO Work Phone: Start: 11-06-2022 End: 11-06-2022 Patient encounter procedure Trung FERGUSON [facility] Start: 11-03-2022 End: 01-10-[address] SAM COONEY Facility: Start: 11-03-2022 End: 11-03-2022 Patient encounter procedure Trung FERGUSON [facility] Start: 10-17-2022 End: 10-17-2022 Lab Drop off CHARLOTTE BAKER [facility] Start: 10-17-2022 End: 10-17-2022 Patient encounter procedure CHARLOTTE BAKER [facility] Start: 10-09-2022 ambulatory Ms. Jasso Emy Arreguin Facility: Start: 10-09-2022 FUV, Provider: Loulou Myles, Status: Pen, Time: 12:30 PM Sam Cooney Work Phone: [facility] DO Work Phone: Start: 10-09-2022 Office outpatient vi sit 15 minutes Sam Cooney Work Phone: [facility] DO Work Phone: Start: 10-09-2022 Patient encounter procedure Sam Cooney Work Phone: [facility] DO Work Phone: Start: 10-02-2022 ambulatory ZA HERNÁNDEZ Facility:[id number] Start: 10-02-2022 Office outpatient vi sit 25 minutes Sam E Corson Work Phone: [facility] DO Work Phone: Start: 10-02-2022 End: 10-02-2022 Patient encounter procedure Trung FERGUSON [facility] Start: 09-19-2022 Rx Renewal Sam Meneses Brist ol Work Phone: [facility] 250 DO Work Phone: Start: 09-11-2022 Office outpatient vi sit 10 minutes Simpson E Corson Work Phone: [facility] Work Phone: Start: 09-11-2022 ambulatory ZA HERNÁNDEZ Facility:1 [id number] Start: 09-04-2022 End: 09-04-2022 Patient encounter procedure Trung FERGUSON [facility] Start: 09-02-2022 Encounter for preprocedural laboratory examination DR TRUNG FERGUSON . [facility] Start: 08-31-2022 End: 09-01-[address] TRUNG FERGUSON . Facility:H1 Start: 08-29-2022 End: 08-30-[address] TRUNG FERGUSON . Facility:H1 Start: 08-29-2022 End: 08-30-2022 Encounter for preprocedural laboratory examination DR TRUNG FERGUSON . Facility:H1 Start: 08-28-2022 Office outpatient vi sit 25 minutes Sam Meneses Corson Work Phone: [facility] 250 DO Work Phone: Start: 08-25-2022 End: 08-26-[address] SAM COONEY Facility:H1 Start: 08-22-2022 End: 08-23-[address] TRUNG FERGUSON . Facility:H1 Start: 08-14-2022 Telephone encounter Sam halltol Work Phone: [facility] DO Work Phone: Start: 07-20-[address] TRUNG PALMA . Facility:H1 Start: 07-14-2022 End: 07-15-[address] TRUNG FERGUSON . Facility:H1 Start: 06-30-2022 Encounter for preprocedural cardiovascular examination DR TRNUG FERGUSON . [facility] Start: 06-30-2022 Encounter for preprocedural laboratory examination DR TRUNG FERGUSON . [facility] Start: 06-30-2022 End: 07-01-[address] TRUNG FERGUSON . Facility:H1 Start: 06-28-2022 End: 06-29-[address] TRUNG FERGUSON . Facility:H1 Start: 06-28-2022 End: 06-29-2022 Encounter for preprocedural cardiovascular examination DR TRUNG FERGUSON . Facility:H1 Start: 06-15-2022 Office outpatient vi sit 15 minutes Sam Cooney Work Phone: [facility] DO Work Phone: Start: 06-15-2022 Patient encounter procedure Sam Cooney Work Phone: [facility] DO Work Phone: Start: 04-24-2022 End: 05-10-2022 Pre-admission assessment Trung FERGUSON [facility] Start: 04-24-2022 End: 04-24-2022 Patient encounter procedure Trung FERGUSON [facility] Start: 04-12-2022 Telephone encounter Sam Ramirez ristol Work Phone: [facility] DO Work Phone: Start: 04-08-2022 End: 04-08-[address] CONCHITA ARREGUIN Facility:H1 Start: 02-17-2022 End: 04-05-[address] SAM COONEY Facility:H1 Start: 01-23-2022 End: 01-23-2022 Patient encounter procedure Trung Santosh FERGUSON [facility] Start: 08-31-2021 Office outpatient vi sit 15 minutes Sam Cooney Work Phone: [facility] DO Work Phone: Start: 02-07-2021 End: 02-07-2021 Patient encounter procedure Sam Cooney Work Phone: -Lab [facility] Start: 01-07-2021 End: 01-07-2021 Patient encounter procedure Sam Cooney Work Phone: -Pacemaker Check Start: 10-13-2020 End: 10-14-2020 Patient encounter procedure ISRAR UL [facility] Start: 10-13-2020 End: 10-13-2020 Subsequent hospital visit by physician Sam CRAIGZ Laboratory Start: 10-08-2020 End: 10-08-2020 Patient encounter procedure Sam Cooney -Pacemaker Check Start: 2020 End: 2020 Patient encounter procedure Sam Cooney -Lab [facility] [place] Start: 09-15-2020 End: 09-15-2020 Patient encounter procedure Sam Cooney -CT [address] Start: 07-07-2020 End: 07-07-2020 Patient encounter procedure Sam Cooney -Pacemaker Check Start: 02-04-2020 End: 02-07-2020 Patient encounter procedure ISRAR UL [facility] Start: 02-04-2020 End: 02-06-2020 Subsequent hospital visit by physician Landy Singh Rm [address] 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 Procedures Date Procedure Procedure Detail Performing Clinician Start: 04-28-2024 Esophagogastroduodenoscopy DO Sam hansen Work Phone: Start: 04-27-2024 Antibody screen Za Hernández Comment on above: Order Comment: Special Requirements Irra diated Transfuse now? Y Number of units to transfuse now? 2 Screened 6 Units for K antigens Result Comment: PERF ORMED BY: [facility] [place] [address] PATHOLOGIST CRYOGENICS REPAIRER OTTO HARLEY M.D. Start: 04-16-2024 Antibody screen Za Hernández Comment on above: Order Comment: Transfuse now? Y Number o f units to transfuse now? 1 Result Comment: PERF ORMED BY: [facility] [address] [facility] [place] [address] PATHOLOGIST CRYOGENICS REPAIRER OTTO HARLEY M.D. Start: 03-28-2024 Positron emission tomography with computed tomography DO Sam Corson Work Phone: Start: 03-05-2024 Radiologic examination, osseous survey, complete DO Sam Corson Work Phone: Start: 03-05-2024 Antibody screen Za Hernández Comment on above: Order Comment: Transfuse now? Y Number o f units to transfuse now? 2 Result Comment: PERF ORMED BY: [facility] [address] [facility] [place] [address] PATHOLOGIST CRYOGENICS REPAIRER OTTO HARLEY M.D. Start: 03-05-2024 Stool Occult Blood (AMY) DO Sam Brist ol Work Phone: Start: 03-05-2024 Plain chest X-ray DO Sam Corson Work Phone: Start: 12-28-2023 CT WATCHMAN FULL CONTRAST RYAN COBB Start: 12-28-2023 Ct heart contrast eval cardiac structure&morph Ryan Cobb MD Work Phone: Start: 10-22-2023 Lipid panel ZA HERNÁNDEZ Start: 10-22-2023 Comprehensive metabolic 2000 panel - Serum or Plasma ZA HERNÁNDEZ Start: 08-28-2023 Echo transthorc r-t 2d w/wo m-mode rec f-up/lmtd Lucas Pearce OPERATOR-BRICK CLEANER Work Phone: Start: 08-28-2023 Ecg routine ecg w/least 12 lds trcg only w/o i&r Lucas Pearce OPERATOR-BRICK CLEANER Work Phone: Start: 08-22-2023 Creatinine [Mass/volume] in Serum or Plasma SAMSAM COONEY Start: 08-22-2023 ELECTROPHYSIOLOGY PROCEDURE SAM JUAN PABLO LEONARDO Start: 07-31-2023 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 Za Hernández MD Work Phone: Start: 07-31-2023 Thyrotropin [Units/volume] in Serum or Plasma Ryan Cobb MD Work Phone: Start: 11-03-2022 Dilation of urethra CHARLOTTE BAKER Start: 08-31-2022 Transurethral prostatectomy Trung KEARNEY Start: 01-24-2022 Cystoscopy Trung FERGUSON Start: 10-13-2020 Assay of free thyroxine Israr Ul Santos Work Phone: Start: 10-13-2020 Assay of thyroid stimulating hormone tsh Israr Ul Santos Work Phone: Start: 10-13-2020 VITAMIN B12 & FOLATE Israr Ul Santos Work Phone: Start: 09-15-2020 CT head/brain wo con Sam Cooney Start: 02-04-2020 Ct head/brain w/o contrast material LESTER CHIRMEG Start: 02-04-2020 Ct head/brain w/o contrast material Israr Ul Santos Work Phone: Start: 12-22-2019 DISCHARGE PATIENT LESTER GAO Start: 12-22-2019 Xtrnl pt activated ecg record monitor 30 days LESTER CHIRRI Start: 12-22-2019 Ct angiography head w/contrast/noncontrast LESTERSeema ARMIJORI Start: 12-22-2019 DIET GENERAL LESTER CHIRRI Start: 12-22-2019 Echo tthrc r-t 2d w/wom-mode compl spec&colr d LESTER CHIRRI Start: 12-22-2019 Echo tthrc r-t 2d w/wom-mode compl spec&colr d LESTER CHIRRI Start: 12-22-2019 INITIATE OXYGEN THERAPY PROTOCOL LESTER C HIRRI Start: 12-22-2019 IP CONSULT TO CARDIOLOGY LESTER CHIRRI Start: 12-22-2019 MISCELLANEOUS NURSING CARE ORDER (SPECIFY) LESTER CHIRRI Start: 12-22-2019 OT EVAL AND TREAT LESTER CHIRRI Start: 12-22-2019 PT EVAL AND TREAT LESTER CHIRRI Start: 12-22-2019 NITROGLYCERIN NEUTRALIZER EVAL AND TREAT LESTER CHIRRI Start: 12-21-2019 Assay of lactate LESTER CHIRRI Start: 12-21-2019 Blood count complete auto&auto difrntl wbc LESTER CHIRRI Start: 12-21-2019 Hemoglobin glycosylated a1c LESTER CHIRRI Start: 12-21-2019 Lipid panel LESTER CHIRRI Start: 12-21-2019 ADVANCE DIET TOLERATED (NURSING COMMUNICATION) LESTER CHIRRI Start: 12-21-2019 FULL CODE LESTER CHIRRI Start: 12-21-2019 INITIATE OXYGEN THERAPY PROTOCOL LESTER C HIRRI Start: 12-21-2019 NEURO CHECKS LESTER CHIRRI Start: 12-21-2019 NURSING SWALLOW ASSESSMENT LESTER CHIRRI Start: 12-21-2019 REASON FOR NO MECHANICAL VTE PROPHYLAXIS LESTER CHIRRI Start: 12-21-2019 TOBACCO CESSATION EDUCATION LESTER CHIRRI Start: 12-21-2019 VITAL SIGNS LESTER CHIRRI Start: 12-21-2019 PATIENT STATUS (DIRECT) LESTER CHIRRI Start: 12-21-2019 Drug screen class list a LESTER CHIRRI Start: 12-21-2019 Urinalysis microscopic only LESTER CHIRRI Start: 12-21-2019 Urnls dip stick/tablet rgnt auto w/o microscopy LESTER CHIRRI Start: 09-24-2018 Total colonoscopy Sam Cooney Work Phone: Colonoscopy Trung FERGUSON Implantation of inse rtable loop recorder Sam Cooney Work Phone: Prosthetic arthropla sty of shoulder Trung FERGUSON Repair of musculoten dinous cuff of shoulder Sam Cooney Work Phone: Repair of shoulder Sam Cooney Work Phone: Comment on above: 2 seperate surgeries; Tonsillectomy and adenoidectomy Sam Cooney Work Phone: Plan of Treatment Date Care Activity Detail Author Start: 05-20-2033 DTaP/Tdap/Td Vaccines (2 - Td or Tdap) DTaP/Tdap/Td Vaccines (2 - Td or Tdap) [facility] Start: 10-13-2024 End: 10-13-2024 Patient encounter procedure 10/13/2024 10:30 AM EST Office Visit [address] [place] [address] Za Hernández MD [address] [place] [address] [address] [place] [address] [facility] Start: 07-31-2024 Thyroid stimulating hormone measurement TSH Level [facility] Start: 04-29-2024 [facility] Start: 04-29-2024 [facility] Start: 04-27-2024 [facility] Start: 04-27-2024 Hospital admission [facility] Start: 04-27-2024 Referral to rehab aid [facility] Start: 04-23-2024 End: 04-23-2024 [facility] Start: 04-23-2024 End: 04-23-2024 [facility] Start: 04-23-2024 [facility] Start: 04-21-2024 End: 04-21-2024 Patient encounter procedure 04/21/2024 10:30 AM EDT Office Visit [address] [place] [address] Loulou Arreguin, OPERATOR-BRICK CLEANER [address] [facility] [address] [place], [place] [id number] 058- [facility] Start: 04-16-2024 [facility] Start: 04-16-2024 [facility] Start: 04-08-2024 [facility] Start: 04-01-2024 End: 04-01-2024 [facility] Start: 04-01-2024 [facility] Start: 03-24-2024 End: 03-25-2024 [facility] Start: 03-24-2024 [facility] Start: 03-21-2024 [facility] Start: 03-20-2024 Patient referral [facility] Work Phone: Start: 03-20-2024 Comprehensive metabolic 2000 panel - Serum or Plasma [facility] Start: 03-20-2024 [facility] Start: 03-20-2024 [facility] Start: 03-20-2024 [facility] Start: 03-15-2024 [facility] Start: 03-14-2024 End: 03-14-2024 [facility] Start: 03-13-2024 End: 03-13-2024 [facility] Start: 03-12-2024 [facility] Start: 03-11-2024 [facility] Start: 03-10-2024 [facility] Start: 03-09-2024 End: 03-09-2024 [facility] Start: 03-08-2024 [facility] Start: 03-07-2024 End: 03-07-2024 [facility] Start: 03-06-2024 End: 03-06-2024 [facility] Start: 03-05-2024 Referral to occupational therapist [facility] Start: 03-05-2024 Physical therapy procedure [facility] Start: 03-05-2024 Hospital admission [facility] Start: 03-05-2024 Referral to oncologist [facility] Start: 03-05-2024 Extraction of Iliac Bone Marrow, Percutaneous Approach, Diagnostic Extraction of Iliac Bone Marrow, Percutaneous Approach, Diagnostic [facility] Start: 03-05-2024 End: 03-06-2024 [facility] Start: 03-03-2024 [facility] Start: 11-20-2023 End: 11-20-2023 Patient encounter procedure 11/20/2023 7:00 AM EST Procedure Visit [place] [address] [place] [address] [facility] Start: 11-06-2023 End: 11-06-2023 Patient encounter procedure 11/06/2023 11:30 AM EST Procedure Visit [facility] [address] [place] [address] Kylee Arreguin DPM [address] [place] [address] [facility] Start: 10-22-2023 End: 10-22-2024 Comprehensive metabolic 2000 panel - Serum or Plasma Comprehensive Metabolic Panel Lab Routine Paroxysmal atrial fibrillation (CMS/HCC) Expected: 10/22/2023 (Approximate), Expires: 10/22/2024 [facility] Service Area Work Phone: Comment on above: Expected: 10/22/2023 (Approximate), Expi res: 10/22/2024 Start: 10-22-2023 End: 10-22-2024 Lipid 1996 panel - Serum or Plasma Lipid Panel Lab Routine Paroxysmal atrial fibrillation (CMS/HCC) Unspecified mood (affective) disorder (CMS/HCC) Former smoker Encounter for pre-operative cardiovascular clearance Mixed hyperlipidemia Expected: 10/22/2023 (Approximate), Expires: 10/22/2024 [facility] Work Phone: Comment on above: Expected: 10/22/2023 (Approximate), Expi res: 10/22/2024 Start: 09-20-2023 End: 09-20-2023 Patient encounter procedure 09/20/2023 10:30 AM EST Office Visit [facility] [address] [facility] [address] [place] [address] Za Hernández MD 254 [facility] [address] [place] [address] [facility] Start: 08-28-2023 End: 08-28-2023 Admission to same day surgery center 08/28/2023 11:30 AM EST - 08/28/2023 1:30 PM EST Surgery [facility] [address] [phone] [place] [address] [place] [address] Left Atrial Appendage Closure [96490 (CPT )] [facility] Comment on above: Left Atrial Appendage Closure [22805 (CP T )] Start: 08-28-2023 Subsequent hospital visit by physician 08/28/2023 11:30 AM EST Hospital Encounter [facility] [address] [phone] [place] [address] [place] [address] Atrial fibrillation (CMS/HCC) [facility] Comment on above: Atrial fibrillation (CMS/HCC) Start: 08-27-2023 End: 08-27-2023 Patient encounter procedure 08/27/2023 9:30 AM EST Office Visit [facility] [address] [phone] Za Hernández MD [address] [address] [facility] Start: 06-11-2023 FUV, Provider: Za Hernández, Status: Pen, Time: 10:45 AM FUV, Provider: Za Hernández, Status: Pen, Time: 10:45 AM [place] [address] DO Work Phone: Start: 05-25-2023 COVID-19 Vaccine ( season) COVID-19 Vaccine ( season) [facility] Start: 05-25-2023 Influenza vaccination Influenza Vaccine (#1) [facility] Start: 02-26-2023 FUV, Provider: Za Hernández, Status: Pen, Time: 11:15 AM FUV, Provider: Za Hernández, Status: Pen, Time: 11:15 AM -[facility] 250 DO Work Phone: Start: 10-09-2022 FUV, Provider: Loulou Myles, Status: Pen, Time: 12:30 PM FUV, Provider: Loulou Myles, Status: Pen, Time: 12:30 PM -[facility] 250 DO Work Phone: Start: 10-02-2022 FUV, Provider: Za Hernández, Status: Pen, Time: 3:15 PM FUV, Provider: Za Hernández, Status: Pen, Time: 3:15 PM -[facility] 250 DO Work Phone: Start: 09-21-2022 FUV, Provider: Za Hernández, Status: Pen, Time: 9:45 AM FUV, Provider: Za Hernández, Status: Pen, Time: 9:45 AM -[facility] 250 DO Work Phone: Start: 09-11-2022 NURSEVST, Provider: JACQUELINE GONZALEZ [employer] 1,[id number], Status: Pen, Time: 1:00 PM NURSEVST, Provider: JACQUELINE GONZALEZ [employer] 1,[id number], Status: Pen, Time: 1:00 PM -[facility] 250 DO Work Phone: Start: 08-28-2022 FUV, Provider: Za Hernández, Status: Pen, Time: 12:45 PM FUV, Provider: Za Hernández, Status: Pen, Time: 12:45 PM [facility] 250 DO Work Phone: Start: 08-10-2022 BPCHEDULCE MARIA, Provider: JACQUELINE GONZALEZ [employer] 1,[id number], Status: Pen, Time: 10:00 AM BPCHEDULCE MARIA, Provider: JACQUELINE GONZALEZ [employer] 1,[id number], Status: Pen, Time: 10:00 AM [facility] 250 DO Work Phone: Start: 08-01-2022 FUV, Provider: Erick Wise, Status: Pen, Time: 9:00 AM FUV, Provider: Erick Wise, Status: Pen, Time: 9:00 AM [facility] 250 DO Work Phone: Start: 06-15-2022 FUV, Provider: Za Hernández, Status: Pen, Time: 9:45 AM FUV, Provider: Za Hernández, Status: Pen, Time: 9:45 AM [facility] 250 DO Work Phone: Start: 10-03-2021 FUV, Provider: Loulou Myles, Status: Pen, Time: 10:00 AM FUV, Provider: Loulou Myles, Status: Pen, Time: 10:00 AM [facility] 250 DO Work Phone: Start: 10-03-2021 STRESS NUC, Provider: KAYODE HHVI NUCLEAR 01,[id number], Status: Pen, Time: 8:00 AM STRESS NUC, Provider: KAYODE HHVI NUCLEAR 01,[id number], Status: Pen, Time: 8:00 AM [facility] 250 DO Work Phone: Start: 04-13-2021 End: 04-13-2021 Virtual Visit 04/13/2021 Virtual Visit Neurology Shalom Shelton MD [address] [place] [address] [phone] [facility] Start: 01-24-2021 COVID-19 Vaccine (2 - Booster for Christina series) COVID-19 Vaccine (2 - Booster for Christina series) [facility] Start: 12-20-2020 Creatinine measurement Creatinine monitoring [facility] [place] Start: 12-20-2020 HbA1c (Bld) [Mass fraction] A1C test (Diabetic or Prediabetic) [place], [place] Start: 12-20-2020 Lipid panel Lipid screen [place] Start: 12-20-2020 Potassium monitoring Potassium monitoring [place] Start: 08-11-2020 End: 08-11-2020 Office Visit 08/11/2020 Office Visit Neurology Ul Shalom Graham MD [address] [address] [phone] [facility] Start: 05-25-2020 Influenza vaccination [place] Start: 12-22-2019 Annual Wellness Visit (AWV) Annual Wellness Visit (AWV) [place] Start: 12-02-2014 Zoster Vaccines (2 of 3) Zoster Vaccines (2 of 3) [facility] Start: 2012 Abdominal aortic aneurysm screening Abdominal Aortic Aneurysm (AAA) Screening [facility] Start: 2012 Pneumococcal 65+ years Vaccine (1 of 1 - PPSV23) Pneumococcal 65+ years Vaccine (1 of 1 - PPSV23) [place] Start: 1997 Screening for malignant neoplasm of colon Colon cancer screen colonoscopy [place] Start: 1997 Shingles Vaccine (1 of 2) Shingles Vaccine (1 of 2) [place] Start: 1969 DTaP/Tdap/Td Vaccines (1 - Tdap) DTaP/Tdap/Td Vaccines (1 - Tdap) [facility] Start: 1966 DTaP/Tdap/Td vaccine (1 - Tdap) DTaP/Tdap/Td vaccine (1 - Tdap) [place] Start: 1965 Diabetes mellitus screening Diabetes Screening [facility] Start: 1965 Hepatitis C screening Hepatitis C Screening [facility] Start: 1947 Abdominal aortic aneurysm screening AAA screen [place], [place] Start: 1947 Hepatitis C screening Hepatitis C screen [place] Start: 1947 Lipid panel Lipid Panel [facility] Start: 1945 Medicare Annual Wellness Visit Medicare Annual Wellness Visit (AWV) [facility] Start: 1945 Screening for malignant neoplasm of colon [facility] Albumin [Mass/volume ] in Serum or Plasma [facility] Albumin/Globulin ratio [facility] Albumin/Globulin ratio [facility] Angiotensin converti ng enzyme [Enzymatic activity/volume] in Serum or Plasma [facility] Anion gap measurement [facility] End: 08-28-2023 Basic metabolic 2000 panel - Serum or Plasma Basic metabolic panel Lab STAT STAT (Lab) for 1 Occurrences starting 08/28/2023 until 08/28/2023 [facility] Service Area Work Phone: Comment on above: STAT (Lab) for 1 Occurrences starting until 08/28/2023 End: 08-31-2023 Basic metabolic 2000 panel - Serum or Plasma Basic Metabolic Panel Lab Routine Morning draw (Lab) for 3 Occurrences starting 08/29/2023 until 08/31/2023 [facility] Work Phone: Comment on above: Morning draw (Lab) for 3 Occurrences sta rting 08/29/2023 until 08/31/2023 Basophils [#/volume] in Blood by Automated count [facility] Basophils/100 leukoc ytes in Blood by Automated count [facility] End: 08-28-2023 CBC W Auto Differential panel - Blood CBC and Auto Differential Lab STAT STAT (Lab) for 1 Occurrences starting 08/28/2023 until 08/28/2023 [facility] Work Phone: Comment on above: STAT (Lab) for 1 Occurrences starting until 08/28/2023 End: 08-31-2023 CBC W Auto Differential panel - Blood CBC and Auto Differential Lab Routine Morning draw (Lab) for 3 Occurrences starting 08/29/2023 until 08/31/2023 [facility] Work Phone: Comment on above: Morning draw (Lab) for 3 Occurrences sta rting 08/29/2023 until 08/31/2023 Comprehensive metabo lic 2000 panel - Serum or Plasma [facility] Comprehensive metabo lic 1999 panel - Serum or Plasma [facility] Comprehensive metabo lic 1999 panel - Serum or Plasma [facility] Comprehensive metabo lic 1999 panel - Serum or Plasma [facility] Comprehensive metabo lic 1999 panel - Serum or Plasma [facility] Comprehensive metabo lic 2000 panel - Serum or Plasma [facility] Comprehensive metabo lic 1999 panel - Serum or Plasma [facility] Copper measurement [facility] End: 08-28-2023 ECG 12 lead [facility] Work Phone: Comment on above: Once for 1 Occurrences starting 08/28/20 until 08/28/2023 As needed until disc ontinued starting 08/28/2023 End: 08-30-2023 ECG 12 lead daily ECG 12 lead daily ECG Routine Daily for 3 Days starting 08/28/2023 until 08/30/2023, 1 completed [facility] Work Phone: Comment on above: Daily for 3 Days starting 08/28/2023 unt il 08/30/2023, 1 completed Electrophoresis: [id number] [facility] Electrophoresis: [id number] [facility] Electrophoresis: beta-globulin [facility] Electrophoresis: camila ma globulin [facility] Eosinophils/100 leuk ocytes in Blood by Automated count [facility] Erythrocyte distribu tion width [Ratio] by Automated count [facility] Erythrocytes [#/volu me] in Blood [facility] Globulin [Mass/volum e] in Serum [facility] Globulin [Mass/volum e] in Serum [facility] End: 08-31-2023 Glucose [Mass/volume] in Serum or Plasma POCT glucose Point of Care Testing - Docked Device Routine 4 times daily before meals and at bedtime for 3 Days starting 08/28/2023 until 08/31/2023 [facility] Work Phone: Comment on above: 4 times daily before meals and at bedtim e for 3 Days starting 08/28/2023 until 08/31/2023 Hematocrit [Volume Fraction] of Blood [facility] Hematocrit [Volume Fraction] of Blood [facility] Hemoglobin [Mass/vol ume] in Blood [facility] Hemoglobin [Mass/vol ume] in Blood [facility] Hepatitis B core ant ibody measurement [facility] Hepatitis B virus wilson rface Ab [Presence] in Serum [facility] IgA [Mass/volume] in Serum or Plasma [facility] IgG [Mass/volume] in Serum or Plasma [facility] IgM [Mass/volume] in Serum or Plasma [facility] End: 08-28-2023 Incentive spirometry Instruct Incentive spirometry Instruct Respiratory Care Routine Once for 1 Occurrences starting 08/28/2023 until 08/28/2023 [facility] Work Phone: Comment on above: Once for 1 Occurrences starting 08/28/20 until 08/28/2023 Booker light chains.f ree [Mass/volume] in Serum [facility] Booker light chains.free/Lambda light chains.free [Mass Ratio] in Serum [facility] Lambda light chains. free [Mass/volume] in Serum or Plasma [facility] Leukocytes [#/volume ] corrected for nucleated erythrocytes in Blood by Automated coun [facility] Leukocytes [#/volume ] in Blood [facility] Lymphocytes [#/volum e] in Blood by Automated count [facility] Lymphocytes/100 leuk ocytes in Blood by Automated count [facility] End: 08-28-2023 Magnesium [Mass/volume] in Serum or Plasma Magnesium Lab STAT STAT (Lab) for 1 Occurrences starting 08/28/2023 until 08/28/2023 [facility] Work Phone: Comment on above: STAT (Lab) for 1 Occurrences starting until 08/28/2023 End: 08-31-2023 Magnesium [Mass/volume] in Serum or Plasma Magnesium Lab Routine Morning draw (Lab) for 3 Occurrences starting 08/29/2023 until 08/31/2023 [facility] Work Phone: Comment on above: Morning draw (Lab) for 3 Occurrences sta rting 08/29/2023 until 08/31/2023 MCH [Entitic mass] b y Automated count [facility] MCHC [Mass/volume] b y Automated count [facility] MCV [Entitic volume] by Automated count [facility] Monocytes [#/volume] in Blood by Automated count [facility] Monocytes/100 leukoc ytes in Blood by Automated count [facility] Neutrophils [#/volum e] in Blood by Automated count [facility] Neutrophils/100 leuk ocytes in Blood by Automated count [facility] Nucleated erythrocyt es [Presence] in Blood by Automated count [facility] Patient referral [facility] Work Phone: Platelet mean volume [Entitic volume] in Blood by Automated count [facility] Platelets [#/volume] in Blood [facility] Protein [Mass/volume ] in Serum or Plasma [facility] End: 08-28-2023 Prothrombin time (PT) Protime-INR Lab STAT STAT (Lab) for 1 Occurrences starting 08/28/2023 until 08/28/2023 [facility] Work Phone: Comment on above: STAT (Lab) for 1 Occurrences starting until 08/28/2023 End: 08-31-2023 Prothrombin time (PT) Protime-INR Lab Routine Morning draw (Lab) for 3 Occurrences starting 08/29/2023 until 08/31/2023 [facility] Work Phone: Comment on above: Morning draw (Lab) for 3 Occurrences sta rting 08/29/2023 until 08/31/2023 Rheumatoid factor [Units/volume] in Serum or Plasma [facility] End: 08-28-2023 Structural heart procedure Structural heart procedure Cardiac Cath Routine Atrial fibrillation (CMS/HCC) Once for 1 Occurrences starting 08/28/2023 until 08/28/2023 [facility] Service Area Work Phone: Comment on above: Once for 1 Occurrences starting 08/28/20 until 08/28/2023 Structural heart procedure Struc tural heart procedure Cardiac Cath Routine Atrial fibrillation (CMS/HCC) 08/28/2023 12:31 PM EST [facility] Work Phone: End: 08-28-2023 US Heart Transthoracic [facility] Work Phone: Comment on above: Once for 1 Occurrences starting 08/28/20 23 until 08/28/2023 [facility] Immunizations Immunization Date Immunization Notes Care Provider Fa cility 10-09-2022 Fluzone High-Dose Quadrivalent 0.7 ML Intramuscular Suspension Prefilled Syringe Simpson E Corson Work Phone: [facility] 250 DO Work Phone: 10-09-2022 influenza virus vacc ine, unspecified formulation [employer] [facility] 10-09-2021 Fluzone High-Dose Quadrivalent 0.7 ML Intramuscular Suspension Prefilled Syringe Simpson E Corson Work Phone: [facility] 250 DO Work Phone: 10-09-2021 influenza virus vacc ine, unspecified formulation [employer] [facility] 11-29-2020 Christina COVID-19 Vac cine 0.5 ML Intramuscular Suspension Sam E Corson Work Phone: [facility] 09-06-2019 influenza virus vacc ine, unspecified formulation [employer] [facility] 09-06-2019 influenza, high dose seasonal, preservative-free Simpson E Corson Work Phone: [facility] 250 DO Work Phone: 06-24-2019 influenza virus vacc ine, unspecified formulation [employer] [facility] 06-24-2019 influenza, high dose seasonal, preservative-free Simpson E Corson Work Phone: [facility] 250 DO Work Phone: 08-04-2018 influenza virus vacc ine, unspecified formulation Trung FERGUSON [facility] 08-04-2018 influenza, high dose seasonal, preservative-free Simpson E Corson Work Phone: [place] [address] DO Work Phone: 05-25-2018 influenza virus vacc ine, unspecified formulation Trung FERGUSON [facility] 05-25-2018 influenza, seasonal, injectable Simpson E Corson Work Phone: [place] [address] DO Work Phone: 09-21-2017 influenza virus vacc ine, unspecified formulation Trung FERGUSON [facility] 09-21-2017 Seasonal trivalent influenza vaccine, adjuvanted, preservative free Simpson E Corson Work Phone: [place] [address] DO Work Phone: 09-24-2016 pneumococcal polysaccharide vaccine, 23 valent Simpson E Corson Work Phone: [facility] 10-19-2015 pneumococcal conjuga te vaccine, 13 valent Simpson E Corson Work Phone: [facility] 07-12-2015 pneumococcal polysaccharide vaccine, 23 valent Simpson E Corson Work Phone: [facility] 2014 zoster vaccine, live Simpson E Corson Work Phone: [facility] 08-08-2011 influenza virus vacc ine, unspecified formulation Trung FERGUSON [facility] 08-08-2011 influenza, seasonal, injectable Sam Meneses Corson Work Phone: [facility] 250 DO Work Phone: 07-14-2009 influenza virus vacc ine, whole virus Sam E Corson Work Phone: [facility] 250 DO Work Phone: 07-14-2009 influenza, whole Trung PALMA [facility] Payers Date Payer Category Payer Self-pay [id number] 2022 Medicare [id number] 2022 Unknown 2019 Medicare MEDICARE RAILROA D MEDICARE xxxxxxxxxxx 2019-Present [phone] [place] [address] xxxxxxxxxxx [id number] 2019 Unknown [employer] [place] [place] [employer] SUPP xxxxxx-xx 2019-Present [phone] ATTN INDIVIDUAL CLAIMS [id number] [employer] [place] [address] xxxxxx-xx [id number] 2019 Unknown [id number] 2012 Medicare [id number] 1959 Medicare [id number] 1959 Medicare [id number] 1959 Unknown [id number] 1947 Unknown [id number] 2.16.840.1.807044.3.579.2 .175 1947 Unknown [id number] 2.16.840.1.561854.3.579.2 .175 1947 Unknown [id number] 2.16.840.1.410647.3.579.2 .175 1947 Unknown [id number] 2.16.840.1.885284.3.579.2 .593 1947 Unknown [id number] 2.16.840.1.603657.3.579.2 .593 1947 Unknown [id number] 2.16.840.1.770043.3.579.2 .593 1947 Unknown [id number] 2.16.840.1.158309.3.579.2 .593 1947 Unknown [id number] 2.16.840.1.288040.3.579.2 .593 1947 Unknown [id number] 2.16.840.1.575663.3.579.2 .593 1947 Unknown [id number] 2.16.840.1.028343.3.579.2 .593 1947 Unknown [id number] 2.16.840.1.356005.3.579.2 .593 1947 Unknown [id number] 2.16.840.1.527507.3.579.2 .593 1947 Unknown [id number] 2.16.840.1.671419.3.579.2 .593 1947 Unknown [id number] 2.16.840.1.481770.3.579.2 .593 1947 Unknown [id number] 2.16.840.1.393185.3.579.2 .356 1947 Unknown [id number] 2.16.840.1.401176.3.579.2 .356 1947 Unknown [id number] 2.16.840.1.866624.3.579.2 .356 1947 Unknown [id number] 2.16.840.1.180512.3.579.2 .356 1947 Unknown [id number] 2.16.840.1.401522.3.579.2 .356 1947 Unknown [id number] 2.16.840.1.759249.3.579.2 .356 1947 Unknown [id number] 2.16.840.1.089708.3.579.2 .356 1947 Unknown [id number] 2.16.840.1.412414.3.579.2 .356 1947 Unknown [id number] 2.16.840.1.719167.3.579.2 .356 1947 Unknown [id number] 2.16.840.1.022413.3.579.2 .159 1947 Unknown [id number] 2.16.840.1.164837.3.579.2 .159 1947 Unknown [id number] 2.16.840.1.660764.3.579.2 .727 1947 Unknown [id number] 2.16.840.1.294321.3.579.2 .727 1947 Unknown [id number] 2.16.840.1.184228.3.579.2 .727 1947 Unknown [id number] 2.16.840.1.333258.3.579.2 .727 1947 Unknown [id number] 2.16.840.1.610298.3.579.2 .727 1947 Unknown [id number] 2.16.840.1.605922.3.579.2 .727 1947 Unknown [id number] 2.16.840.1.500286.3.579.2 .1246 1947 Unknown [id number] 2.16.840.1.099726.3.579.2 .1246 1947 Unknown [id number] 2.16.840.1.357560.3.579.2 .1286 1947 Unknown [id number] 2.16.840.1.202383.3.579.2 .1286 1947 Unknown [id number] 2.16.840.1.292472.3.579.2 .1259 1947 Unknown [id number] 2.16.840.1.710658.3.579.2 .1259 1947 Unknown [id number] 2.16.840.1.838583.3.579.2 .1259 1947 Unknown [id number] 2.16.840.1.359157.3.579.2 .1245 1947 Unknown [id number] 2.16.840.1.731158.3.579.2 .1245 1947 Unknown [id number] 2.16.840.1.725181.3.579.2 .1244 Private Health Insurance Unknown [id number] 2.16.840.1.203860.3.579.2 .531 Unknown [id number] 2.16.840.1.259204.3.579.2 .531 Unknown [id number] 2.16.840.1.094488.3.579.2 .531 Unknown [id number] 2.16.840.1.057850.3.579.2 .531 Unknown [id number] 2.16.840.1.640481.3.579.2 .531 Unknown [id number] 2.16.840.1.700315.3.579.2 .531 Unknown [id number] 2.16.840.1.380697.3.579.2 .531 Unknown [id number] 2.16.840.1.428749.3.579.2 .531 Unknown [id number] 2.16.840.1.411614.3.579.2 .531 Unknown [id number] 2.16.840.1.894643.3.579.2 .531 Social History Date Type Detail Facility Start: 02-04-2020 End: 04-27-2024 Tobacco smoking status NHIS Former smoker [facility] Start: 1945 Sex Assigned At Not on file [place] Start: 1945 Sex Assigned At Male [facility] Start: 10-13-2020 End: 10-22-2023 Tobacco use and exposure Never used [place] Start: 08-12-2023 End: 12-28-2023 Exposure to SARS-CoV-2 (event) Not sure [place] Start: 06-15-2022 End: 08-22-2023 Occasional caffeine consumption Occasional caffeine consumption [facility] Comment on above: Quit ; Tea; Start: 08-29-2021 End: 12-03-2023 Tobacco smoking status Never smoked tobacco (finding) [facility] Tobacco smoking status Never [facility] Start: 06-15-2022 End: 08-22-2023 Sex Assigned At Male [facility] End: 09-24-1959 History of tobacco use Current smoker [facility] Work Phone: End: 09-24-1959 History of tobacco use Cigarette Smoker [facility] Work Phone: Start: 08-22-2023 Alcohol intake Ex-drinker (finding) [facility] Work Phone: Start: 08-13-2023 End: 10-22-2023 Alcohol intake Lifetime non-drinker (finding) [facility] Work Phone: Medical Equipment Procedure Code Equipment Code Equipment Origin al Text Equipment Identifier Dates ()[id number] [id number] FDA Start: 04-07-2020 System, Access, Fxd Dbl Curve, Watchman - [id number] Start: 08-28-2023 Device, Closure, 27mm Watchman Flx Laac - [id number] Start: 08-28-2023 Goals Date Patient Goal Desired Activity /State Functional Status Date Assessment Result Facility 04-29-2024 Functional status Patient at Baseline [facility] Work Phone: 03-09-2024 Functional status Patient at Baseline [facility] Work Phone: 03-05-2024 Functional status Patient is Pro gressing Toward [facility] Work Phone: 12-03-2023 Functional Status N/A [facility] 07-09-2023 Functional Status N/A [facility] 04-03-2023 Functional Status N/A [facility] 01-23-2023 Functional Status N/A [facility] 01-01-2023 Functional Status N/A [facility] 11-03-2022 Functional Status N/A [facility] 10-02-2022 Functional Status N/A [facility] 06-15-2022 PHQ-9 [id number] In Remission (0-4 ) [facility] 250 DO Work Phone: 04-24-2022 Functional Status N/A [facility] Status Date Assessment Result Facility 04-29-2024 Cognitive function Cognitive Sta tus Patient at Baseline [facility] Work Phone: 03-09-2024 Cognitive function Cognitive Sta tus Patient at Baseline [facility] Work Phone: 03-05-2024 Cognitive function Cognitive Sta tus Patient is Progressing Toward [facility] Work Phone: Clinical Notes 11-23-2019 to 04-30-2024 Note Date & Type Note Facility 04-30-2024 Progress note Note Date/Time April 30, 2024 12:03pm [facility] [place] [address] Cancer Center Note Signed with Addenda Patient: Neil Wilcox MR#: [id number] 0543 : 1945 Acct:[id number] Age/Sex: 78 / M Type: PRE AMB Date of Service: Copies to: Ratna Nick MD~ ADDENDUM1 Was mentioning that he was transfused two units of blood during this hospitalization from 04/27/2024 through 04/29/2012 and his hemoglobin improved from 6.0 to became now 8.8. He underwent EGD showed LA grade B esophagitis, Gastritis, small hiatal hernia, severe duodenitis duodenal erosions GI recommended Continue PPI twice daily Addendum Dictated By: Bertha Cuevas MD Addendum Signed By: 04/30/241239 Addendum Cosigned By: DD/ /16/1240 TD/TT: 04/30/2404/16/1240 Assessment & Plan A/P (1) Multiple myeloma: (2) Hypercalcemia: (3) Acute renal insufficiency: (4) Pancytopenia: (5) Coffee ground emesis: (6) Upper GI bleeding: (7) Acute on chronic anemia: Plan Please see the HPI for the [...] cytopenias. BM Bx, done as inpatient at [facility], revealed multiple myeloma. Myeloma FISH revealed 14 [...] creatinine is 1.05 on 03/09/24. PLAN: Plan was 2 cycles of Velcade and Dexamethasone on 03/20/24 then switched him to Daratumumab, Revlimid and Dexamethasone based on further discussions with the patient's who is his surrogate decision-maker. Daratumumab and Revlimid with Dex were supposed to start C1 on 03/24/24. However, due to pancytopenia, Revlimid has not started yet. 04/01/24: He continues to feel okay and is without any s/s of infection. We reviewed his recent PET scan, which noted no evidence of malignancy. Labs from 03/28 revealed low platelets and neutrophil count, so these were repeated at [facility]. Updated labs with improvement of platelets to 51,000 and neutrophils to 900. This was discussed with Dr. Dye over the phone and he confirmed the patientis ok for treatment with Issa today. We will continue to hold off on Revlimid until he sees Dr. Dye in follow-up in about 3 weeks. He will continue with weekly labs per treatment plan. 04/23/24: No major changes in symptoms since last visit. His labs are overall stable and okay for daratumumab and dexamethasone treatment, confirmed with Dr. Dye. He will continue as planned and follow-up next week. On 04/27/24, he was admitted to [facility] with coffee-ground emesis, GI bleed required blood transfusion. Started on pantoprazole 40 mg twice daily. Was discharged to the care center again on 04/29/2025 with a hemoglobin improved from 6.0 to became now 8.0. He is supposed to get his weekly daratumumab on 05/01/2024. Due to recent hospitalization for GI bleed at this point we will continue to hold his Revlimid which has never been started yet and need to stop the aspirin for minimum 3 weeks and delay daratumumab for 1 week. Plan: No daratumumab this week but possibly next week will be given if the labs are permitting. CBC today to follow-up on the H&H and make sure that he does not have rebound GIbleed or worsening anemia. Stop aspirin for minimum 3 weeks. Continue pantoprazole 40 mg twice daily ongoing for now but minimum 4 weeks. Continue to hold or not start Revlimid for 3 more weeks. Return in 3 weeks for further assessment and evaluation. CHEMO PLAN Treatment Plan Zoledronic Acid 4mg Q6M Clinical Indication No Indication Cycle Number Last Admin 1 of 1 Cycle Day Next Admin 59 of 168 No Active Chemotherapy More Active Plan(s) Found [...] not progressed. Most recent labs done at [facility] during his evaluation for falls wherehe sustained a vertebral fracture on 01/26/2024 he [...] but story obtained from and daughter. 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 Chiki visited the [facility] nuclear event after the event for site [...] for progressing pancytopenia, labs ordered for myeloma, flow cytometry and iron studies, b12 and folate. Labs [...] labs came back high concerning for IGA Booker monoclonal multiple myeloma with IgA 3828, M [...] cytopenias. BM Bx, done as inpatient at [facility], revealed multiple myeloma. Myeloma FISH revealed 14 [...] be switched to daratumumab, Revlimid and Dex. 04/01/24 Neil is here for cycle 2 of treatment today. He remains fatigued, but denies any shortness of breath or chest pain. He is eating and drinking well without nausea or vomiting. He has had a couple episodes of diarrhea that he attributesto certain foods that he has eaten. He denies any fevers, chills, sweats, numbness, tingling, or new/worsening pain. No other new concerns. 04/23/24 He is seen today for regular follow-up on diarrhea. His energy is about the same and he denies shortness of breath or chest pain. Every once in a while he has mild episode of dizziness. He notes this has been ongoing for at least a year, but more recent episodes have been much less severe. He is still having abit of pain around his epigastric area from the previous fall he had in January but notes this has improved somewhat over time. He denies any n/v/c. He still has intermittent diarrhea here and there, which she notes is not significant. His appetite is stable and he states he does not always like the food at his facility. Otherwise no new complaints. 04/30/24: Patient is not here posthospitalization for couple of days for coffee-ground emesis. He was admitted to [facility] on 04/27/24 due to coffee-ground emesis at the care center and decreased appetite. Patient was discharged on 04/29/2024 after blood transfusion obtained and hemodynamically stabilized as well as hemoglobin being improved from 6.0 to 8.0 on discharge. Patient was placed on pantoprazole 40 mg twice daily. He has not started his Revlimid yet but he has been taking the aspirin 81 mg daily at care center as well. Patient denied any abdominal pain or melena or rectal bleeding to his knowledge denies any shortness of breath. He came into clinic today with his to see if he is going to take his daratumumab as scheduled on 05/01/2024. Intake Vitals/Pain Assessment 04/30/24 12:00 BP 99/52 L Blood Pressure Location Rt brachial Position Sitting Temp 97.6 F Temp Source Temporal Pulse 56 L Pulse Source NIBP Respiration 18 Pulse Oximetry (%) 98 Oxygen Delivery Method room air Are you having pain? No Intake Visit Reasons: Inpatient follow up Accompanied by: Spouse Allergies No Known Allergies Allergy (Verified 04/23/24 08:29) Falls Fall Precaution Measures Taken: Patient in chair Nurse's Note: Patient is here for a follow up visit after an inpatient stay. Patient's states that he was admitted for having coffee ground emesis. Patient was discharged 04/29/2024. Home medications not reconciled due to computer system being down at time of appointment. [facility] Medical History Medical History Hypercalcemia Thrombocytopenia Elevated total protein Acute renal [...] additional complaints except as documented Review of systems: no reported fevers or chills or night sweats or weight loss. No melena or rectal bleeding of BRBPR. had coffee ground emesis prior to [facility] admission at the Care center on 04/27/24. His Alzheimer has been progressing since March 2023. Still remembers his family members names and has been falling multiple times since the fall 2022. No fevers or chills or night sweats or CP or SOB. No Nausea or vmiting or diarrhea. Positive for Fatigue constantly. He has been having multiple falls as well since June 2023. Physical Exam EXAM HEENT normocephalic atraumatic pupils are equal and round Chest clear to auscultation bilaterally without wheezing crackles or rhonchi Heart regular rate and rhythm S1-S2 without murmurs gallop or rub Abdomen soft nontender not distended without hepatosplenomegaly or masses clinically Extremities no edema of the lower extremities Skin without any suspicious rashes Neurological exam patient is pleasantly demented from Alzheimer with bilateral lower extremity weakness and multiple falls since June 2023. Results - Cancer Ctr (Med Onc) LAB RESULTS Corrected WBC 2.0 X10E3/uL (4.1-10.5) L 04/29/24 07:42 Hgb 8.8 g/dL (13.0-17.0) L 04/29/24 07:42 Hct 25.2 % (38.8-50.0) L 04/29/24 07:42 MCV 94.4 fl (83.5-101) 04/29/24 07:42 RDW 19.7 % (12.0-14.8) H 04/29/24 07:42 Plt Count 99 x10E3/uL (150-450) L 04/29/24 07:42 Sodium 139 mmol/L (136-145) 04/29/24 07:42 Potassium 4.3 mmol/L (3.5-5.1) 04/29/24 07:42 BUN 21 mg/dL (7-25) 04/29/24 07:42 Creatinine 0.93 mg/dL (0.70-1.30) 04/29/24 07:42 Glucose 92 mg/dL (70-100) 04/29/24 07:42 Est GFR (CKD-EPI) > 60.0 mL/Min 04/29/24 07:42 Calcium 9.1 mg/dL (8.6-10.3) 04/29/24 07:42 Total Bilirubin 0.7 mg/dl (0.3-1.0) 04/27/24 07:35 AST 8 U/L (13-39) L 04/27/24 07:35 ALT 8 U/L (7-52) 04/27/24 07:35 Alkaline Phosphatase 56 U/L (34-104) 04/27/24 07:35 Total Protein 7.5 gm/dL (6.4-8.9) 04/27/24 07:35 Albumin 3.1 gm/dL (3.5-5.7) L 04/27/24 07:35 Lactate Dehydrogenase 97 U/L (140-271) L 04/23/24 12:50 Dictated By: Bertha Cuevas MD DD/ 1200 Signed By: <Electronically signed by Bertha Cuevas MD> 04/30/24 1237 [facility] Work Phone: 1(813) 386-330108-06-2024 Progress note Author Evon Santana [facility] April 29, 2024 2:29am Note Date/Time April 28, 2024 3:5 9pm [facility] [address] [place] [address] Hospitalist Progress Note Signed Patient: Neil Wilcox MR#: [id number] 0543 : 1945 Acct:[id number] Age/Sex: 78 / M Adm Date: 4 Loc: Room: [address] [place] [address] Type: ADM IN Attending Dr: Evon Santana MD Copies to: ~ Date of Service: 04/28/2024 Subjective Subjective Narrative: Assessment And Plan 81M with past medical history of multiple myeloma, pancytopenia, renal insufficiency, Watchman device 2022, BPH, TIA, hyperlipidemia, hypothyroidism, hypertension [facility] Bleed Acute Anemia of blood loss Hg 6 no change ; no more overt bleeding , The patient p/w bleeding his initial Hemoglobin is 6.1 (baseline Hg around 7) at admission, he is hemodynamically stable, No coagulopathy , Platelet > 50K. he is not on anticoagulant Hold : ASA Blood product transfusions as needed (goal of maintaining the Hg >= 7) ; Give Two units Acid suppression with PPI IV: Protonix BID H&H monitoring s/p EGD showed LA grade B esophagitis, Gastritis, small hiatal hernia, severe duodenitis duodenal erosions GI was consulted, recommendation appreciated. LINTERVAL HPI: As Above, Pt resting in bed. feeling little better. Denies any chest pain, SOB Chronic diseases: Unless mentioned Above, Essential home medications have been continued. DVT Px: Addressed Disposition: DC once Hg stable Plan of care Discussed with: the medical team, the patient L Exam Physical Exam Vital Signs: Temp Pulse Resp BP Pulse Ox O2 Del Method 36.4 C 88 18 130/69 98 Room Air 04/28/24 15:48 04/28/24 15:48 04/28/24 15:48 04/28/24 15:48 04/28/24 15:48 04/28/24 15:48 Narrative: GEN: NAD, Cooperative LUNGS: CTA. normal respiratory effort CV: nl S1 S2; no M/R/G ABD: Soft, ND, NT, + BS, ? rebound, ? guarding, ? HSM EXT: No peripheral edema, No calf muscle tenderness PSYCH: nl affect, AOx3 Objective Lab Results 04/28/24 06:42 04/28/24 06:42 Meds Allergies and Active Meds Allergies No Known Allergies Allergy (Verified 04/23/24 08:29) Active Meds: Active Medications Generic Name Dose Route Start Last Admin Trade Name Freq PRN Reason Stop Dose Admin Cyanocobalamin 1,000 mcg 04/27/24 09:00 04/28/24 08:53 Cyanocobalamin 1,000 Mcg Tablet PO 04/27/25 08:59 1,000 mcg DAILY LEONARDO Administration Doxazosin Mesylate 4 mg 04/27/24 09:00 04/28/24 08:53 Doxazosin 4 Mg Tablet PO 04/27/25 08:59 4 mg DAILY LEONARDO Administration Finasteride 5 mg 04/27/24 22:00 04/27/24 21:25 Finasteride 5 Mg Tablet PO 04/27/25 21:59 5 mg QHS LEONARDO Administration Fluoxetine HCl 40 mg 04/27/24 09:00 04/28/24 08:53 Fluoxetine 20 Mg Capsule PO 04/27/25 08:59 40 mg DAILY LEONARDO Administration Folic Acid 1 mg 04/27/24 09:00 04/28/24 08:53 Folic Acid 1 Mg Tablet PO 04/27/25 08:59 1 mg DAILY LEONARDO Administration Lactated Ringer's 1,000 mls @ 100 mls/hr 04/27/24 06:00 04/28/24 15:51 Lactated Ringers IV 04/27/25 05:59 100 mls/hr .Q10H LEONARDO Administration Sodium Chloride 500 mls @ 20 mls/hr 04/28/24 15:21 0.9 % Sodium Chloride IV 04/29/24 15:20 PROTOCOL PRN BLOOD TRANSFUSION Memantine 10 mg 04/27/24 09:00 04/28/24 08:53 Memantine 10 Mg Tablet PO 04/27/25 08:59 10 mg BID LEONARDO Administration Metoprolol Succinate 25 mg 04/27/24 09:00 Metoprolol Succinate 25 Mg Tab.Er.24h PO 04/27/25 08:59 DAILY LEONARDO Ondansetron HCl 4 mg 04/27/24 05:46 Ondansetron 4 Mg/2 Ml Vial IV-PUSH 04/27/25 05:45 Q8H PRN Nausea And Vomiting Pantoprazole Sodium 40 mg 04/27/24 09:00 04/28/24 08:53 Pantoprazole 40 Mg Vial IV-PUSH 04/27/25 08:59 40 mg BID LEONARDO Administration Quetiapine Fumarate 25 mg 04/27/24 09:00 Quetiapine Fumarate 25 Mg Tablet PO 04/27/25 08:59 BID LEONARDO Sodium Chloride 10 ml 04/27/24 05:51 04/27/24 07:48 Sodium Chloride 0.9 % 10 Ml Vial.Pf INJECTION 04/27/25 05:50 10 ml PRN PRN Administration Dilution Sodium Chloride 10 ml 04/27/24 05:51 04/28/24 08:54 Sodium Chloride 0.9 % 10 Ml Syringe IV-PUSH 04/27/25 05:50 10 ml PRN PRN Administration Flush Sodium Chloride 0 ml 04/27/24 06:00 04/28/24 15:51 Sodium Chloride 0.9 % 10 Ml Syringe IV-PUSH 04/27/25 05:59 10 ml QSHIFT LEONARDO Administration Tolterodine Tartrate 2 mg 04/27/24 09:00 04/28/24 08:53 Tolterodine 2 Mg Cap.Er.24h PO 04/27/25 08:59 2 mg DAILY LEONARDO Administration A&P - Hospitalist Assessment/Plan (1) Alzheimer's dementia: (2) Multiple myeloma: (3) Pancytopenia: (4) Upper GI bleeding: Plan Documented By: Evon Santana MD 04/28/24 1557 Signed By: <Electronically signed by Evon Santana MD> 04/29/24 0225 [facility] Work Phone: 1([phone]) 308-179708-05-2024 History and physical note Author Estrellita Sharif [facility] April 28, 2024 7:57am Note Date/Time April 28, 2024 7:5 7am [facility] [address] [place] [address] Gastroenterology H&P Signed Patient: Neil Wilcox MR#: [id number] 0543 : 1945 Acct:[id number] Age/Sex: 78 / M Adm Date: 4 Loc: Room: [address] [place] [address] Type: ADM IN Attending Dr: Jc Johnson MD Copies to: Estrellita Sharif, MD Ratna Singh MD~ Date of Service: 04/28/2024 HISTORY & PHYSICAL: Patient's history with special attention to the cardiovascular, pulmonary systems and the current problem was reviewed with the patient immediately prior to the procedure. Present medications and doses reviewed in the EMR. Allergies and pertinent laboratory tests were also reviewedat this time in the EMR. The physical examination, as below, was then performed. Indication, assessment and HPI: 78-year-old male with past medical history significant for multiple myeloma on chemotherapy who presented with coffee- ground emesis and acute on chronic anemia. Family history of GI malignancy? No PHYSICAL EXAMINATION General appearance: cooperative, NAD Skin: No jaundice, no rash or lesions Head: NCAT Eyes: Anicteric Neck: Supple Lungs: Normal respiratory effort, no use of accessory muscles Abdomen: Soft, nondistended Neuro: No focal deficits, Ox3. REVIEW OF SYSTEMS Constitutional: Denies malaise, fevers Cardiovascular: Denies chest pain, palpitations Respiratory: Denies shortness of breath, wheezing Gastrointestinal: As per HPI Genitourinary: Denies dysuria, polyuria Musculoskeletal: Denies joint swelling, joint stiffness Neurological: Denies confusion, numbness, tingling Endocrine: Denies fatigue Written informed consent obtained from the patient. Risks (including but not limited to perforation, infection, bloating, bleeding, need for emergent surgeryand loss of life), benefits and alternatives explained and questions answered. The patient verbalized understanding. Based on history patient is an appropriate candidate for the procedure. Estrellita Sharif DO Documented By: Estrellita Sharif DO 04/28/24 075 Signed By: <Electronically signed by Estrellita Sharif DO> 04/28/24 0757 [facility] Work Phone: [phone]) 181-856708-05-2024 [facility] Progress note Author Jc Johnson [facility] April 27, 2024 10:36pm Note Date/Time April 27, 2024 10: 25pm [facility] [address] [place] [address] Progress Note Signed Patient: Neil Wilcox MR#: [id number] 0543 : 1945 Acct:[id number] Age/Sex: 78 / M Adm Date: 4 Loc: Room: [address] [place] [address] Type: ADM IN Attending Dr: Jc Johnson MD Copies to: ~ Date of Service: 04/27/2024 Progress Narrative Note PROGRESS NOTE Progress Note: HOSPITALIST UPDATE NOTE: 78F with PMH of multiple myeloma, pancytopenia, Alzheimer's, Watchman device, HTN, HLD, other comorbidities here with bloody emesis at his SNF. Hemoglobin was 4.7 at [facility], he received no transfusions in hemoglobin did increase to 6.1. No further hematemesis since hospitalization, patient is not maintained onblood thinners chronically. Discussed briefly with GI and they recommend clear liquid diet today. NG tube can be removed, n.p.o. after midnight. GI to scope in AM. Holding all blood thinners for now. Also reportedly DNR CC at his SNF. Currently full code at this time. Will need to clarify further with patient throughout hospitalization, but as far as he is stating, patient is full code for now. Can clarify further with as hospitalization moves forward. Documented By: Jc Johnson MD 4 2222 Signed By: <Electronically signed by Jc Johnson MD> 04/27/242235 [facility] Work Phone: 1(620) 916-824508-04-2024 Consult note Author Estrellita Sharif [facility] April 27, 2024 2:08pm Note Date/Time April 27, 2024 9:3 0am [facility] [address] [place] [address] Gastroenterology Consult Note Signed Patient: Neil Wilcox MR#: [id number] 0543 : 1945 Acct:[id number] Age/Sex: 78 / M Adm Date: 4 Loc: Room: [address] [place] [address] Type: ADM IN Attending Dr: Jc Johnson MD Copies to: Estrellita Sharif, MD Ratna Singh MD~ HPI Data of Consult Date of Consultation: 04/27/24 Requesting Physician: Jc Johnson MD Consult Narrative Reason for consult: Coffeee ground emesis, acute on chronic anemia History of present illness: Mr. Wilcox is a 78 year old male with PMH significant for recently dx MM started on chemo in 02/2024, hx of pancytopenia, s/p watchman in 2022, OA, BPH, TIA, HLD,HTN, hypothyroid, hiatal hernia, diverticulosis, renal insufficiency, Alzheimer's dementia who [facility] [place] [facility] and acute on chronic anemia with hgb 5s from 7s in 03/2024. NGT was placed at [place] with coffee ground returned. His BP was low on presentation but responded to IVF bolus. He is on baby asa only. No other NSAIDs or AC. He was transferred to [facility] for further management. VS on admission with T 97.8, HR 90-99, RR 18, BP 115-125/64/71, SpO2 95% on RA. Labs with Na 138, K 4.3, Cl 104, CO2 23.8, BUN/Cr 60/1.24, glu 114, ca 9.1, Phos2.4, mg 1.7, WBC 2.2, Hgb 6, plt 97, MCV 96, RDW 25.3, INR 1.2. Patient has not had any further episodes of coffee-ground emesis since admission. He denies any fevers, chills, GERD, dysphagia, shortness of breath, chest pain, palpitations, abdominal pain, diarrhea, constipation. He is not sure if his stools have been dark or bloody but per ED physician at [facility] hisstools were brown. He has not been transfused secondary to antibodies. Despitethis his hemoglobin did go up to 6. cc:: CC: Jc Johnson MD Review of Systems Review of Systems All other systems reviewed & are negative unless noted below or in HPI Review of systems: Pertinent positives per HPI. All others reviewed and negative. General: Denies chills, sweats. Eyes: Denies irritation, discharge. Ears/Nose/Throat: Denies earache, ear discharge, tinnitus. Cardiovascular: Denies palpitations, dyspnea on exertion. Respiratory: Denies cough, dyspnea. Gastrointestinal: As per HPI Genitourinary: Denies hematuria, discharge. Musculoskeletal: Denies joint pain, joint swelling. Skin: Denies rash, itching. Neurologic: Denies weakness, paresthesias, seizures. Endocrine: Denies polydipsia, polyphagia. Heme/Lymphatic: Denies abnormal bruising, bleeding. Allergic/Immunologic: Denies urticaria, hay fever. [facility] Medical History Hypercalcemia Thrombocytopenia Elevated total protein Acute renal [...] failure 89 yrs Social History Smoking Status: Former smoker Tobacco Type: cigarettes Substance Use Type: None Meds Medications and Allergies Allergies No Known Allergies Allergy (Verified 04/23/24 08:29) Home Medications losartan 100 mg tablet 100 mg PO QAM htn 05/19/19 [History Confirmed 04/27/24] aspirin 81 mg chewable tablet 81 mg PO QPM tia 02/27/20 [History Confirmed 04/27/24] finasteride 5 mg tablet 5 mg PO DAILY prostate 02/27/20 [History Confirmed 04/27/24] cyanocobalamin (vitamin B-12) 1,000 mcg capsule 1,000 mcg PO DAILY 02/21/24 [History Confirmed 04/27/24] doxazosin 4 mg tablet 4 mg PO DAILY 02/21/24 [History Confirmed 04/27/24] fluoxetine 40 mg capsule 40 mg PO DAILY 02/21/24 [History Confirmed 04/27/24] folic acid 1 mg tablet 1 mg PO DAILY 02/21/24 [History Confirmed 04/27/24] memantine 10 mg tablet 10 mg PO BID 02/21/24 [History Confirmed 04/27/24] metoprolol succinate 25 mg tablet,extended release 24 hr 25 mg PO DAILY 02/21/24[History Confirmed 04/27/24] quetiapine 25 mg tablet (Seroquel) 25 mg PO BID 02/21/24 [History Confirmed 04/27/24] spironolactone 25 mg tablet 25 mg PO DAILY 02/21/24 [History Confirmed 04/27/24] tolterodine 2 mg capsule,extended release 24 hr 2 mg PO DAILY 02/21/24 [History Confirmed 04/27/24] acetaminophen 500 mg capsule 1,000 mg PO BID pain 03/05/24 [History Confirmed 04/27/24] ondansetron HCl 4 mg tablet 4 mg PO .Q8 PRN nausea and vomiting 03/05/24 [History Confirmed 04/27/24] lenalidomide 25 mg capsule (Revlimid) 25 mg PO DAILY #21 caps 03/07/24 [Rx Confirmed 04/27/24] Exam Physical Exam Vital Signs: Temp Pulse Resp BP Pulse Ox O2 Del Method 98.2 F 90 18 125/71 95 Room Air 04/27/24 08:00 04/27/24 08:00 04/27/24 08:00 04/27/24 08:00 04/27/24 08:00 04/27/24 08:00 Narrative: General appearance: Pleasant, cooperative, A&Ox3, NAD Skin: No jaundice, no rash or lesions Head: NC/AT, NG tube in place-clamped Eyes: Anicteric, EOMI Neck: Supple, nontender Heart: normal S1 and S2 Lungs: Normal respiratory effort, no use of accessory muscles Abdomen: Soft, nondistended, no TTP, bs present, no r/r/g Neuro: normal gait, sensation grossly intact, no focal deficits Ext: no edema or tenderness. Results - Gastroenterology Labs Labs: Laboratory Results - last 24 hr 04/27/24 07:35 Corrected WBC 2.2 L Uncorrected WBC Count 2.2 L RBC 1.82 L Hgb 6.1 L Hct 17.4 L* MCV 96.1 MCH 33.7 MCHC 35.1 RDW 25.3 H Plt Count 97 L MPV 6.9 PT 13.5 H INR 1.2 APTT 24.8 L PHA Creatinine Clear 50.68 Sodium 138 Potassium 4.3 Chloride 104 Carbon Dioxide 23.8 Anion Gap 14.5 BUN 60 H Creatinine 1.24 Est GFR (CKD-EPI) > 60.0 Glucose 114 H Calcium 9.1 Phosphorus 2.4 L Magnesium 1.7 L Total Bilirubin 0.7 AST 8 L ALT 8 Alkaline Phosphatase 56 Total Protein 7.5 Albumin 3.1 L Globulin 4.4 Albumin/Globulin Ratio 0.7 A&P - Gastroenterology Assessment/Plan (1) Acute on chronic anemia: (2) Coffee ground emesis: (3) Multiple myeloma: (4) Pancytopenia: Plan Pt is a 78 y/o M with multiple medical problems including recent dx of MM on chemotherapy, hx of pancytopenia who presented with coffee ground emesis and acute on chronic anemia. Mild hypotension on presentation which responded to IVF. He was transferred from [place] ED for further management. -EGD tomorrow -Okay for clear liquid diet today. N.p.o. after midnight -Okay to DC NG tube -Monitor H&H and transfuse-still awaiting transfusion -Continue PPI IV twice daily Documented By: Estrellita Sharif DO 04/27/24 4964 Signed By: <Electronically signed by Estrellita Sharif DO> 04/27/24 0281 [facility] Work Phone: 1(828) 771-143808-04-2024 History and physical note Author Elie Balderrama [facility] April 27, 2024 6:11am Note Date/Time April 27, 2024 6:0 6am [facility] [address] [place] [address] Hospitalist H&P Signed Patient: Neil Wilcox MR#: [id number] : 1945 Acct:[id number] Age/Sex: 78 / M Adm Date: 4 Loc: Room: [address] [place] [address] Type: ADM IN Attending Dr: Elie Balderrama MD Copies to: MD Ratna Proctor MD~ HPI DATE OF EXAMINATION: 04/27/24 CHIEF COMPLAINT: Bloody emesis HISTORY OF PRESENT ILLNESS: This is a 81-year-old male with past medical history of multiple myeloma, pancytopenia, renal insufficiency, Watchman device 2022, BPH, TIA, hyperlipidemia, hypothyroidism, hypertension currently living in a [facility] was transferred from [place] emergency department for bloody emesis to episode in the [facility] facility. Hemoglobin in [place] ED was 4.7 and BUN was 77. His systolic blood pressure was 89 which improved to 100 mmHg after fluid bolus. He was given Protonix. [facility] any [facility] vomiting or any abdominal pain. Patient has an NG tube placed. Review of Systems Review of Systems All other systems reviewed & are negative unless noted below or in HPI [facility] Medical History (Updated 04/27/24 @ 06:04 by Elie Balderrama MD) Hypercalcemia Thrombocytopenia Elevated total protein Acute renal [...] failure 89 yrs Social History Smoking Status: Former smoker Tobacco Type: cigarettes Substance Use Type: None Meds Medications and Allergies Allergies No Known Allergies Allergy (Verified 04/23/24 08:29) Home Medications losartan 100 mg tablet 100 mg PO QAM htn 05/19/19 [History Confirmed 04/23/24] aspirin 81 mg chewable tablet 81 mg PO QPM tia 02/27/20 [History Confirmed 04/23/24] finasteride 5 mg tablet 5 mg PO QHS prostate 02/27/20 [History Confirmed 04/18/24] cyanocobalamin (vitamin B-12) 1,000 mcg capsule 1,000 mcg PO DAILY 02/21/24 [History Confirmed 04/23/24] doxazosin 4 mg tablet 4 mg PO DAILY 02/21/24 [History Confirmed 04/23/24] fluoxetine 40 mg capsule 40 mg PO DAILY 02/21/24 [History Confirmed 04/23/24] folic acid 1 mg tablet 1 mg PO DAILY 02/21/24 [History Confirmed 04/23/24] memantine 10 mg tablet 10 mg PO BID 02/21/24 [History Confirmed 04/18/24] metoprolol succinate 25 mg tablet,extended release 24 hr 25 mg PO DAILY 02/21/24[History Confirmed 04/23/24] quetiapine 25 mg tablet (Seroquel) 25 mg PO BID 02/21/24 [History Confirmed 04/23/24] spironolactone 25 mg tablet 25 mg PO DAILY 02/21/24 [History Confirmed 04/23/24] tolterodine 2 mg capsule,extended release 24 hr 2 mg PO DAILY 02/21/24 [History Confirmed 04/23/24] acetaminophen 500 mg capsule 500 mg PO BID pain 03/05/24 [History Confirmed 04/23/24] ondansetron HCl 4 mg tablet 4 mg PO .Q8 PRN nausea and vomiting 03/05/24 [History Confirmed 04/23/24] lenalidomide 25 mg capsule (Revlimid) 25 mg PO DAILY #21 caps 03/07/24 [Rx Confirmed 04/23/24] Exam Physical Exam Narrative: General: Awake alert, no acute distress HEENT: head atraumatic, normocephalic, moist mucous membranes Neck: supple no masses, no lymphadenopathy CVS: regular rate and rhythm, no murmurs or gallops Respiratory: clear to auscultation bilaterally, no wheezing or crackles, symmetric expansion GI: soft, nondistended, obese, nontender, positive bowel sounds with no organomegaly Extremity: moves all extremities, no restrictions of movements, no calf tenderness Neuro: AOx3, CN II-VII intact. Moves all extremities in all planes of motion. Skin: dry, intact no rashes or lesions Assessment & Plan Assessment/Plan (1) Alzheimer's dementia: (2) Multiple myeloma: (3) Pancytopenia: (4) Upper GI bleeding: Plan Plan: -Strict n.p.o. until seen by a rehab aid -Started on Protonix 40 IV twice daily for GI bleed -No history of liver cirrhosis low concern for variceal bleeding so we will holdon octreotide and ceftriaxone for now -Stat labs. -Type and screen and transfuse as appropriate CODE STATUS-DNR comfort care. Discussed with the IP vs OBS Justification Based on differential dx, clinical care plan, and risk of adverse events, if untreated, in my clinical judgement this patient requires an acute care setting as: INPATIENT because of an expectation of an over 2 midnight stay. Estimated length of stay (# of days): 3 Documented By: Elie Balderrama MD 04/27/24600 Signed By: <Electronically signed by Elie Balderrama MD> 04/27/24 06 [facility] Work Phone: 1(853) 570-456006-17-2024 Hospital Discharge instructions Additional Instructions Custodial Retirement to manage care: - Full code - PT/OT eval and treat - Routine vital signs - Mepilex border foam to Coccyx for added protection. Change every 3 days and as needed. - CBC/CMP on Sunday - [facility] Work Phone: 1(763) 392-843406-16-2024 Discharge summary Author Vijay Aguilar [facility] March 09, 2024 3:31pm Note Date/Time March 09, 2024 2:18 pm [facility] [address] [place] [address] Discharge Summary Signed Patient: Neil Wilcox MR#: [id number] 0543 : 1945 Acct:[id number] Age/Sex: 78 / M Adm Date: 4 Loc: 3T Room: [address] [place] [address]: Vijay Aguilar MD Copies to: MD Sam Zhang,DO~ Providers Date of Admission: 03/05/24 Date of Discharge: 03/09/24 Discharging Provider: Vijay Aguilar Primary Care Provider: Sam Cooney Consults: 03/05/24 14:09 Consult to Oncology Routine Comment: Consulting Provider: Vreenice Mario Reason For Exam: pancytopenia Has Provider [...] who was in a CAT scan at [facility] getting a bone marrow biopsy when he [...] can be found in the EHR of [facility]. The patient left hospital appropriately in stable [...] pending. 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 [place] Care/Resident Activity: No Activity Restriction Diet: Regular Additional Instructions: Custodial Retirement to manage care: - Full code - [...] 21 DAYS AND 7 DAYS OFF.ADULT MALE AUTH#[id number] losartan 100 mg tablet 100 mg PO [...] Day Facility: ACUTE - Location: [facility] Ordered By: Bertha Cuevas Complete Blood Count Auto Diff (Stat) Timeframe: 1 Day Location: Determined by Patient Ordered By: Bertha Cuevas Complete Blood Count Auto Diff (Stat) Timeframe: 1 Day Facility: ACUTE - Location: [facility] Ordered By: Bertha Cuevas Complete Blood Count [...] Day Facility: ACUTE - Location: [facility] Ordered By: Bertha Cuevas Comprehensive Metabolic Panel (Stat) Timeframe: 1 Day Facility: ACUTE - Location: [facility] Ordered By: Bertha Cuevas Follow Up: Bertha Cuevas MD [[facility] - Physician] - 03/19/24 2:00 pm (Follow- upwith Oncology as previously scheduled. ) Exam Physical [...] % (Auto) N/A, Lymph % (Auto) N/A, Rabun % (Auto) N/A, Eos % (Auto) N/A, Baso % (Auto) N/A, Nucleat RBC Rel Count N/A, Neut # (Auto) N/A, Lymph # (Auto) N/A, Rabun # (Auto) N/A, Eos # (Auto) N/A, [...] 0.5 Documented By: Vijay Aguilar MD 03/09/24 2570 Signed By: <Electronically signed by Vijay Aguilar MD> 03/09/24 7978 [facility] Work Phone: 1(159) 673-384906-15-2024 Progress note Author Vijay Aguilar [facility] March 08, 2024 7:44pm Note Date/Time March 08, 2024 7:45 pm [facility] [address] [place], [place] [id number] Hospitalist Progress Note Signed Patient: Neil Wilcox MR#: [id number] 0543 : 1945 Acct:[id number] Age/Sex: 78 / M Adm Date: 4 Loc: Room: [address] [place] [address] Type: ADM IN Attending Dr: Vijay Aguilar [...] who was in a CAT scan at [facility] getting a bone marrow biopsy when he [...] <Electronically signed by Vijay Aguilar MD> 03/08/241943 [facility] Work Phone: 1(199) 860-458606-14-2024 Progress note Author Verenice Mario [facility] March 07, 2024 2:50pm Note Date/Time March 07, 2024 2:50 pm [facility] [address] [place] [address] Med Onc/Hem Progress Note Signed Patient: Neil Wilcox MR#: [id number] 0543 : 1945 Acct:[id number] Age/Sex: 78 / M Adm Date: 4 Loc: Room: [address] [place] [address] Type: ADM IN Attending Dr: Roslyn Townsend [...] now progressed. Most recent labs done at [facility] during his evaluation for falls where he [...] from and daughter. He had visited the [employer] nuclear event after the event for site [...] labs came back high concerning for IGA Booker monoclonal multiple myeloma with IgA 3828, M [...] % (Auto) 38.8, Lymph % (Auto) 49.0, Rabun % (Auto) 1.2, Eos % (Auto) 10.7, Baso % (Auto) 0.3, Nucleat RBC Rel Count 0.5, Neut # (Auto) 0.8 L, Lymph # (Auto) 1.0, Rabun # (Auto) 0.0, Eos # (Auto) 0.2, [...] <Electronically signed by MD Verenice Mario> 03/07/24 1457 [facility] Work Phone: 1(966) 395-711606-14-2024 Progress note Author Roslyn Townsend [facility] March 07, 2024 2:38pm Note Date/Time March 07, 2024 10:0 7am [facility] [address] [place] [address] Hospitalist Progress Note Signed Patient: Neil Wilcox MR#: [id number] 0543 : 1945 Acct:[id number] Age/Sex: 78 / M Adm Date: 4 Loc: Room: [address] [place] [address] Type: ADM IN Attending Dr: Roslyn Townsend DO Copies to: ~ Date of Service: 03/07/2024 Subjective Subjective Narrative: Mr. Wilcox is a 78M recently diagnosed with multiple myeloma with a PMHx of pancytopenia and renal insufficiency who was in a CAT scan at [facility] getting a bone marrow biopsy when he [...] <Electronically signed by Roslyn Townsend DO> 03/07/24 2958 [facility] Work Phone: 1(404) 554-175306-14-2024 Progress note Author Roslyn Townsend [facility] March 07, 2024 9:31am Note Date/Time March 06, 2024 11:1 7am [facility] [address] [place] [address] Hospitalist Progress Note Signed Patient: Neil Wilcox MR#: [id number] 0543 : 1945 Acct:[id number] Age/Sex: 78 / M Adm Date: 4 Loc: Room: [address] [place] [address] Type: ADM IN Attending Dr: Roslyn Townsend [...] Acute renal insufficiency - BUN/Cr trending down 28.32 - follow CMP DVT ppx: SCDs Diet: [...] <Electronically signed by Roslyn Townsend DO> 03/07/24 0932 [facility] Work Phone: 1([phone]) 842-593206-13-2024 [facility] Consult note Author Bertha Cuevas [facility] March 05, 2024 4:49pm Note Date/Time March 05, 2024 4:49 pm [facility] [address] [place] [address] Med Onc/Hem Consult Note Signed Patient: Neil Wilcox MR#: [id number] 0543 : 1945 Acct:[id number] Age/Sex: 78 / M Adm Date: 4 Loc: ER Room: Type: [facility] ER Attending Dr: Copies to: MD Trung Segundo DO Reagan E Corson,DO~ CONSULT DATE: 03/05/2024 REQUESTING PROVIDER: Dr Roslyn Townesnd, hospitalist REASON FOR CONSULT: Multiple Myeloma, acute [...] now progressed. Most recent labs done at [facility] during his evaluation for falls where he [...] from and daughter. He had visited the [employer] event after the event for site seen [...] labs came back high concerning for IGA Booker monoclonal multiple myeloma with IgA 3828, M [...] fracture and therefore he is [facility] now for rehab and probably long- term due to his dementia. He is a and was not active in water but he was in [place] and during [place] War. He visited [facility] for the sightseeing but was not during the nuclear [employer] event. He has been having multiple falls as well since June 2023. PMFSH Medical History (Updated 03/05/24 @ 14:13 by [...] Confirmed 03/05/24] thyroid (pork) 90 mg tablet ([place] Thyroid) 90 mg PO QAM thyroid 02/27/20 [...] % (Auto) N/A, Lymph % (Auto) N/A, Rabun % (Auto) N/A, Eos % (Auto) N/A, Baso % (Auto) N/A, Nucleat RBC Rel Count N/A, Neut # (Auto) N/A, Lymph # (Auto) N/A, Rabun # (Auto) N/A, Eos # (Auto) N/A, [...] <Electronically signed by Bertha Cuevas MD> 03/05/24 1644 [facility] Work Phone: 1(523) 874-875206-12-2024 History and physical note Author Roslyn Townsend [facility] March 05, 2024 4:12pm Note Date/Time March 05, 2024 3:45 pm [facility] [address] [place] [address] Hospitalist H&P Signed Patient: Neil Wilcox MR#: [id number] 0543 : 1945 Acct:[id number] Age/Sex: 78 / M Adm Date: 4 Loc: ER Room: Type: [facility] ER Attending Dr: Copies to: Trung Armenta, DO Sam Cooney,DO Roslyn Townsend DO~ HPI DATE OF EXAMINATION: 03/05/24 CHIEF COMPLAINT: Hypotension HISTORY OF PRESENT ILLNESS: Mr. Wilcox is a 78M recently diagnosed with multiple myeloma with a PMHx of pancytopenia and renal insufficiency who was in a CAT scan at [facility] getting a bone marrow biopsy when he [...] negative unless noted below or in HPI [facility] Medical History (Updated 03/05/24 @ 14:13 by [...] Confirmed 03/05/24] thyroid (pork) 90 mg tablet ([place] Thyroid) 90 mg PO QAM thyroid 02/27/20 [...] 11:49 Lymph % (Auto) N/A 03/05/24 11:49 Rabun % (Auto) N/A 03/05/24 11:49 Eos % (Auto) N/A 03/05/24 11:49 Baso % (Auto) N/A 03/05/24 11:49 Nucleat RBC Rel Count N/A 03/05/24 11:49 Neut # (Auto) N/A 03/05/24 11:49 Lymph # (Auto) N/A 03/05/24 11:49 Rabun # (Auto) N/A 03/05/24 11:49 Eos # [...] <Electronically signed by Roslyn Townsend DO> 03/05/24 3078 [facility] Work Phone: 1(958) 891-913206-12-2024 History and physical note Author Roslyn Townsend [facility] March 05, 2024 4:12pm Note Date/Time March 05, 2024 3:45 pm [facility] [address] [place] [address] Hospitalist H&P Signed Patient: Neil Wilcox MR#: [id number] 0543 : 1945 Acct:[id number] Age/Sex: 78 / M Adm Date: 4 Loc: ER Room: Type: [facility] ER Attending Dr: Copies to: Trung Armenta, DO Sam Cooney,DO Roslyn Townsend DO~ HPI DATE OF EXAMINATION: 03/05/24 CHIEF COMPLAINT: Hypotension HISTORY OF PRESENT ILLNESS: Mr. Wilcox is a 78M recently diagnosed with multiple myeloma with a PMHx of pancytopenia and renal insufficiency who was in a CAT scan at [facility] getting a bone marrow biopsy when he [...] negative unless noted below or in HPI [facility] Medical History (Updated 03/05/24 @ 14:13 by [...] Confirmed 03/05/24] thyroid (pork) 90 mg tablet ([place] Thyroid) 90 mg PO QAM thyroid 02/27/20 [...] 11:49 Lymph % (Auto) N/A 03/05/24 11:49 Rabun % (Auto) N/A 03/05/24 11:49 Eos % (Auto) N/A 03/05/24 11:49 Baso % (Auto) N/A 03/05/24 11:49 Nucleat RBC Rel Count N/A 03/05/24 11:49 Neut # (Auto) N/A 03/05/24 11:49 Lymph # (Auto) N/A 03/05/24 11:49 Rabun # (Auto) N/A 03/05/24 11:49 Eos # [...] 4 Documented By: Roslyn Townsend DO 03/05/24 1453 Signed By: <Electronically signed by Roslyn Townsend DO> 03/05/24 1613 [facility] Work Phone: 1(446) 334-947403-11-2024 Hospital Discharge instructions Patient Education 12/03/2023 16:13:12 [...] your health care provider. General instructions Take houz-sjl-cbwmynj and prescription medicines only as told by [...] provider. Document Revised: 05/30/2021 Document Reviewed: 05/30/2021 [employer] Patient Education 2022 [employer]. Follow Up Care 07/09/2023 11:46:47 With:MARTY BETANCOURT, Trung Frost, URL Address: [facility] [address], [place] [phone]- [phone] When: Unknown Comments:6 mos (increase med dosage) [facility] 02-27-2024 NoteProcedure Cancelation Documentation Entered On: 11/20/2023 10:21 EST Performed On: 11/20/2023 10:17 EST by Sahra Lizarraga RN Procedure Cancelation Documentation Surgery Procedure Cancelation : 11/20/2023 10:17 EST Surgery Procedure Cancel Reason : low hemoglobin/hematocrit. dr shaffer spoke with patient + pt's at length. pt instructed to contact primary care physician Sahra Lizarraga RN - 11/20/2023 10:[facility] NotePreprocedure Checklist Entered On: 11/15/2023 [...] risk situation (congregated living, hemodialysis, infusion clinic, [facility], assisted living, senior living, homeless senior care, etc.)? : No Sahra Lizarraga RN - [...] on and Verified : Yes Fall Risk Director Of Compensation : Yes Blood Band on and Verified : Yes Current H&P in Medical Record : Yes (Comment: 11/15/23 [Mary Ellen Price RN - 11/15/2023 13:49 EST] ) Mary Ellen Price RN - 11/20/2023 9:50 EST Current ECG in Medical Record : Yes (Comment: 10/12/23 [Mary Ellen Price RN - 11/15/2023 13:49 EST] ) Basic Liberty : Yes (Comment: 10/12/23 [Mary Ellen Price [...] Family Waiting : Yes (Comment: , shanice [Elham TOLEDO, Sahra - 11/20/2023 9:50 EST] ) Can Surgeon Speak With Family : Yes Sahra Lizarraga RN - 11/20/2023 9:50 EST Anesthesia/Transfusions Anesthesia/Transfusions : Prior anesthesia Accept Blood Products if Necessary : Yes Mary Ellen Price RN - 11/15/2023 14:17 EST Advance Directive Advance Directive Date : unk Sahra Lizarraga RN 11/20/2023 9:50 EST Advanced Directives : Yes Advance Directive Type : Living will, Medical durable power of civil rights attorney Advance Directive Location : Family to bring in copy from home Advance Directive Additional Information : No Mary Ellen Price RN - 11/15/2023 14:17 EST Surgical Clipper Prep Surgery Clipper Prep : done in preop Sahra Lizarraga RN - 11/20/2023 9:50 EST [facility]02-27-2024 NotePAA Education Entered On: 11/15/2023 13:49 EST [...] Education Dialysis Surgery - Hospital form # [id number] : Verbalizes understanding Mary Ellen Price RN [...] Mary Ellen Price RN - 11/15/2023 13:49 [facility]SC[facility]-22-2024 NotePatient: NEIL WILCOX Age: 78 years [...] 500 mg = 1 tabs, PRN, ORAL, [id number] acetaminophen/butalbital/caffeine 325 mg-50 mg-40 mg oral tablet = Fioricet 1 tabs, PRN, ORAL, [id number] Aspirin EC 81 mg oral delayed release [...] 2 mg = 1 caps, PRN, ORAL, [id number] losartan 100 mg oral tablet 100 mg [...] No tenderness, No swelling. Integumentary: Warm, [place]. Neurologic: Alert, Oriented. Cognition and Speech: Oriented, [...] cardiac clearance and o (more content not included)...[facility]01-29-2024 History of Present illness Narrative* [...] due to atrial fibrillation, on anticoagulation. 10. [id number] at least 5. Has bled score 2 [...] redirect to the Timeline version of the [employer] SmartLink. Wt Readings from Last 3 Encounters: [...] Daily atorvastatin (LIPITOR) 40 mg, oral, Daily zelgfcqiur-dzrfpph-fyhwxygb (Fiorinal) 50-325-40 mg capsule 1 capsule, oral, [...] Diagnosis Date Noted Unspecified mood (affective) disorder ([facility]/HCC) 10/22/2023 Former smoker 10/22/2023 Encounter for pre-operative [...] my name below, Halie Paez YUMI , Scribe attest that this documentation has [...] exam, discussion and plan. documented in [facility] encounterOur [facility] Work Phone: 1(799) 582-296601-29-2024 Instructions* Patient Instructions* Phuong Atkinson CMA - [...] time of your visit. documented in this encounterOur [facility] of [facility] Work Phone: 1(496) 196-248701-19-2024 NotePAA Education Entered On: 10/12/2023 10:13 EST [...] further teaching Speakup : Needs further teaching Madan TOLEDO [facility] 10/12/2023 10:10 EST Topic Specific Education Health Maintenance GRID Bathing/Hygiene : Verbalizes understanding Diet/Nutrition : Verbalizes understanding Exercise : Verbalizes understanding Oral Care : Verbalizes understanding Madan TOLEDO [facility] 10/12/2023 10:10 EST Education Medication Management GRID Correct Self-Administration : Verbalizes understanding Madan TOLEDO [facility] 10/12/2023 10:10 EST Education Respiratory Care Nursing GRID Smoking/Tobacco Use : Verbalizes understanding Madan TOLEDO [facility] 10/12/2023 10:10 EST Infection Control Education Dialysis Surgery - Hospital form # [id number] : Needs further teaching Madan TOLEDO [facility] 10/12/2023 10:10 EST Pain Pain Education Topics Grid Pain Assessment Schedule : Needs further teaching Pain Assessment Tool : Needs further teaching Pain Can Be Managed/Relieved : Needs further teaching Pain Management Side Effect : Needs further teaching Madan TOLEDO [facility] 10/12/2023 10:10 EST Pre Procedure / Surgery Education Procedures Tests Exams GRID NPO : Verbalizes understanding Preoperative Instructions : Verbalizes understanding Procedure : Needs further teaching Preprocedure Tests/Labs : Verbalizes understanding Preprocedure Diet : Verbalizes understanding Other : Verbalizes understanding (Comment: WILL CONTACT CARDIOLOGY AND SURGEON FOR PREOP EDUCATION OF BLOOD THINNERS [Madan TOLEDO, [facility] 10/12/2023 10:10 EST] ) Madan TOLEDO, [facility] 10/12/2023 10:10 [facility] 08-28-2023 Hospital course Narrative* Adam Benedict MD - 08/28/2023 1:11 PM EST Discharge Diagnosis Atrial fibrillation ([facility]) Hospital Course S/p VINNIE closure Access: Dual [...] 40 mg tablet; Commonly known as: Lipitor bdonourrnn-fnrvwhuwosuok-xexk 50-325-40 mg tablet cyanocobalamin 1,000 mcg tablet; [...] Center 09/20/2023 10:30 AM Za Hernández MD [id number] [place] Adam Benedict MD documented in this [facility] Work Phone: 1(527) 574-700812-05-2023 History of Present illness Narrative* Humble Felton RPh - 08/28/2023 12:10 PM EST Pharmacy Medication History Review Neil Wilcox is a 77 y.o. male admitted for Atrial fibrillation ([facility]). Pharmacy reviewed the patient's ktovg-yj-doyytdflq medications and allergies for accuracy. The list below reflects the updated COMMUNITY HEALTH AGENT list. Comments regarding how patient may be [...] tablet (40 mg) by mouth once daily. koaggvvitg-otmyzuznpgcqh-aqsz 50-325-40 mg tablet Past Week Spouse/Significant Other, [...] clarification and justification. Allergies Reviewed by Emerson Mcpherson, RN on 08/28/2023 No Known Allergies Patient declines M2B at discharge. Sources used to complete the med history include out patient fill history, OARRS, and patient interview along with 08/22/[address] Cobb Below are additional concerns with the patient's COMMUNITY HEALTH AGENT list. Humble Felton [facility] Transitions of Care Clinical Pharmacist Please reach out via [employer] Chat for questions, if no response call [employer] or [employer] Ambulatory and [facility] Services [facility]: [phone]) 491-840412-05-2023 Note* Pre-Sedation Documentation - Adam Benedict MD - 08/28/2023 10:39 AM EST Sedation Plan ASA 2 Mallampati class: II. Risks, benefits, and alternatives discussed with patient. [facility] Work Phone: 1(140) 402-974112-05-2023 Miscellaneous Notes* Pre-Sedation Documentation - Adam Benedict MD - 08/28/2023 10:39 AM EST Sedation Plan ASA 2 Mallampati class: II. Risks, benefits, and alternatives discussed with patient. [facility] Phone: 1(782) 317-552012-04-2023 Hospital Discharge instructions* Discharge Instructions* KWAME Hurtado - 08/27/2023 12:20 PM EST Watchman Discharge [...] you have any concerns, youmay contact the Copping Machine Operator or if any of these symptoms become excessive, contact your electronic engineering draftsperson maikel to the emergency room. No tub [...] Any new concerning symptoms. documented in this [facility] Work Phone: 1(860) 213-421110-16-2023 Hospital Discharge instructions Patient Education 07/09/2023 11:37:10 [...] urethra. Follow these instructions at home: Take zckn-dht-oxxyaqg and prescription medicines only as told by [...] provider. Document Revised: 03/29/2022 Document Reviewed: 03/29/2022 AdoTube Patient Education 2022 [employer]. Follow Up Care 01/01/2023 13:25:14 With:MARTY BETANCOURT, Trung Frost, URL Address: [facility] [address] , [place] [address]- When:Within 4 Month(s) [facility] [place] 07-11-2023 Hospital Discharge instructions Patient Education [...] provider. Document Revised: 01/19/2022 Document Reviewed: 01/19/2022 [employer] Patient Education 2022 [employer]. Follow Up Care 01/23/2023 14:39:57 With:CHARLOTTE BAKER PA-C, URL Address: [address] [place] [address] When: Unknown Comments:keep appt w/ [facility] 06-01-2023 History of Present illness Narrative* 77-year-old with history of atrial fibrillation, hypercoagulability related to atrial fibrillation,high VQH8JS2-DWJz score, most recently seen February 2023 and [...] to atrial fibrillation, on anticoagulation. * 10. IVI7OX1-GEBf at least 5. Has bled score 2 [...] 50 mg p.o. daily and discontinue amlodipine. -[facility]Kayode Laguerre DO Work Phone: [phone]) 294-220305-02-2023 Hospital Discharge instructions Patient Education 01/23/2023 14:45:05 [...] air conditioner or fan, if available. Apply dtqu-nfu-wngnwvm and prescription medicines only as told by [...] well after activity or exercise. Use a occupational therapy department chair on a cool setting to [...] drying your skin and with medicines. Apply cgjt-tio-nyalsus and prescription medicines only as told by [...] Document Reviewed: 06/26/2022 Elsevier Patient Education 2022 [employer] Inc[employer] [facility] 04-10-2023 Hospital Discharge instructions Patient [...] reconstructed. Follow these instructions at home: Take pydn-uwn-uqhktuq and prescription medicines only as told by [...] 10/06/2016 Document Revised: 04/23/2019 Document Reviewed: 04/23/2019 [employer]oTube Patient Education 2020 [employer]. Follow Up Care 10/02/2022 12:40:38 With:MARTY BETANCOURT, Trung Frost, URL Address: [facility] [address] , [place] [address]- When: Unknown [facility]23 Hospital Discharge instructions Patient Education 11/03/2022 [...] reconstructed. Follow these instructions at home: Take huce-ljo-zdnblqt and prescription medicines only as told by [...] 10/06/2016 Document Revised: 04/23/2019 Document Reviewed: 04/23/2019 Elsevier Patient Education 2019 Elsevier Inc. Follow Up Care 11/03/2022 12:06:47 With:MARTY BETANCOURT, Trung Frost, URL Address: [address] [place], [place] [id number]- When: Unknown [facility] [place] 01-09-2023 Hospital Discharge instructions Patient Education [...] fried and sweet foods. General instructions Take arbn-zjq-eotyeky and prescription medicines only as told by [...] 07/07/2010 Document Revised: 01/01/2020 Document Reviewed: 09/26/2018 [employer] Patient Education 2020 [employer]. Follow Up Care 07/24/2022 14:33:35 With:MARTY BETANCOURT, Trung Frost, URL Address: [facility] [address] [place] [address]- [phone] When:Within 3 Month(s) [facility] 01-01-2023 History of Present illness Narrative* 77-year-old [...] to atrial fibrillation, on anticoagulation. * 10. ARW3HQ3-WLWv at least 5. Has bled score 2 [...] 3 months sooner if interval problems arise -[facility]Kayode Laguerre DO Work Phone: [phone]) [phone] History of Present illness Narrative* This is [...] orthostatics * 5. Fall precautions were reiterated. [facility] 250 DO Work Phone: 1(883) 849-644808-01-2022 Hospital Discharge instructions Patient Education 04/24/2022 12:32:07 [...] nerve stimulation). For women, using a medical staff credentialing coordinator to prevent urine leaks. This is [...] right after experiencing incontinence. General instructions Take ejjb-tgl-wsnctzj and prescription medicines only as told by [...] 10/18/2005 Document Revised: 09/20/2018 Document Reviewed: 12/20/2017 AdoTube Patient Education 2020 [employer] Follow Up Care 01/24/2022 09:45:35 With:MARTY BETANCOURT, Trung Frost, URL Address: [facility] [address] , [place] [address] [phone] When: Unknown Comments:w/ urodynamics [facility] 05-02-2022 Hospital Discharge instructions Patient [...] urethra. Follow these instructions at home: Take eepv-nlv-sgpgogq and prescription medicines only as told by [...] 09/10/2006 Document Revised: 08/05/2019 Document Reviewed: 10/15/2017 ElseThe Bauhub Patient Education 2019 [employer] Inc. Follow Up Care 12/20/2021 10:58:17 With:MARTY BETANCOURT, Trung Frost, URL Address: [facility] [address] [place] [address]- When: Unknown [facility] [place] 01-01-2022 History of Present illness Narrative* [...] have much in the way of symptoms. -[facility] 250 DO Work Phone: 1([phone]) 455-751603-01-2020 History of Present illness NarrativeMr. Wilcox is a 75-year-old male seen back today for follow-up on his implanted loop recorder. He was seen initially as a consult requested by neurology. He was admitted to [facility] in [place] in November 2019 with an acute stroke. [...] pain seems to be stable from cardiac perspective.-[facility] 250 DO Work Phone: 1([phone]) 161-949203-01-2020 History of Present illness Narrative* Patient is new to this provider. Per Dr. Reyes's prior notes: * Mr. Wilcox is a 75-year-old male seen back today for follow-up on his implanted loop recorder. He was seen initially as a consult requested by neurology. He was admitted to [facility] in [place] in November 2019 with an acute stroke. [...] medications for him in viewof his BPH. -[facility] 250 DO Work Phone: Chief complaint Narrative - ReportedNEIL WILCOX is being seen for Discuss progress.-[facility] 250 DO Work Phone: Evaluation + Plan note Future Appointments Appointment Date:01/24/2022 09:30:00 AM Scheduled Provider: Location:[facility] Appointment Type:Urology FT Appointment Date:09/04/2022 08:45:00 AM Scheduled Provider:Trung FERGUSON MD [facility] Office Visit [facility] evaluation + Plan note Future Appointments Appointment Date:04/25/2022 12:15:00 PM Scheduled Provider: Location:[facility] Appointment Type:Urology CALL PAT FT Appointment Date:05/09/2022 11:00:00 AM Scheduled Provider: Location:[facility] Appointment Type:Urology FT Appointment Date:09/04/2022 08:45:00 AM Scheduled Provider:Trung FERGUSON MD Location:[facility] Appointment Type:URO Office Visit [facility] evaluation + Plan note Future Appointments Appointment Date:09/04/2022 08:45:00 AM Scheduled Provider:Trung FERGUSON MD Location:[facility] App[facility]ments Appointment Date:09/29/2022 08:45:00 AM Scheduled Provider:Trung FERGUSON MD [facility] Appointment Type:URO Office Visit [facility] evaluation + Plan note Future Appointments Appointment Date:01/01/2023 11:30:00 AM Scheduled Provider:Trung FERGUSON MD [facility] Appointment Type:URO Office Visit [facility] evaluation + Plan note Future Appointments Appointment Date:01/01/2023 11:30:00 AM Scheduled Provider:Trung FERGUSON MD [facility] Appointment Type:URO Office Visit Diagnostic Tests Pending * Urine Culture [facility]17[facility] Future Appointments Appointment Date:11/06/2022 09:00:00 AM Scheduled Provider: Location:[facility] Appointment Type:URO Nurse Visit Appointment Date:01/01/2023 11:30:00 AM Scheduled Provider:Trung FERGUSON MD Location:[facility] Appointment Type:URO Office Visit [facility] evaluation + Plan note Future Appointments Appointment Date:07/09/2023 10:30:00 AM Scheduled Provider:Trung FERGUSON MD Location:[facility] Appointment Type:URO Office Visit [facility] evaluation + Plan note Future Appointments Appointment Date:04/03/2023 09:00:00 AM Scheduled Provider:CHARLOTTE BAKER PA-C Location:[facility] Appointment Type:URO Office Visit Appointment Date:07/09/2023 10:30:00 AM Scheduled Provider:Trung FERGUSON MD Location:[facility] Appointment Type:URO Office Visit [facility] evaluation + Plan note Future Appointments Appointment Date:11/12/2023 11:15:00 AM Scheduled Provider:Trung FERGUSON MD Location:[facility] Appointment Type:URO Office Visit [facility] evaluation + Plan note Future Appointments Appointment Date:06/16/2024 01:15:00 PM Scheduled Provider:Trung FERGUSON MD Location:[facility] Appointment Type:URO Office Visit [facility] evaluation noteNo Assessments Information Available [facility] assessment information available [facility]* Diagnosis Paroxysmal atrial fibrillation (CMS/HCC)- Primary Atrial fibrillation Atrial fibrillation (CMS/HCC)- Primary Atrial fibrillation Atrial fibrillation (CMS/HCC) Atrial fibrillation documented in this encounter [facility] Work Phone: Evaluation note* Diagnosis Atrial fibrillation (CMS/HCC)- Primary Atrial fibrillation Atrial fibrillation (CMS/HCC) Atrial fibrillation Chronic atrial fibrillation, unspecified (CMS/HCC) 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 documented in this encounter [facility] Work Phone: Evaluation note* Diagnosis Unspecified mood [...] of left shoulder documented in this encounter [facility] Work Phone: Evaluation note* Diagnosis Atrial fibrillation, unspecified type (CMS/HCC) documented in this encounter [facility] Work Phone: Evaluation note* Diagnosis Onset Date Resolution Status Acute renal insufficiency ac capitan grande band Anemia acute Elevated total protein acute Leukopenia acute Pancytopenia acute Thrombocytopenia acute Acute hypotension acute Acute renal insufficiency ac [place] Anemia acute Hypercalcemia acute Multiple myeloma acute Pancytopenia acute Syncope acute Thrombocytopenia acute [facility] Work Phone: Evaluation note* Diagnosis Onset Date Resolution Status Acute renal insufficiency ac [place] band Anemia acute Elevated total protein acute Leukopenia acute Pancytopenia acute Thrombocytopenia acute Acute hypotension acute Acute renal insufficiency ac [place] band Alzheimer's dementia acute Anemia acute Encounter for chemotherapy management acute Hypercalcemia acute Leukopenia acute Multiple myeloma acute Pancytopenia acute Syncope acute Thrombocytopenia acute [facility] Work Phone: Evaluation note* Diagnosis Onset Date Resolution Status Anemia acute Elevated total protein acute Pancytopenia acute Acute renal insufficiency re solved Leukopenia resolved Thrombocytopenia resolved Alzheimer's dementia acute Hypercalcemia acute Multiple myeloma acute Pancytopenia acute Acute hypotension resolved Acute renal insufficiency re solved Anemia resolved Encounter for chemotherapy management resolved Leukopenia resolved Syncope resolved Thrombocytopenia resolved [facility] Work Phone: Evaluation note* Diagnosis [...] Pancytopenia acute Acute renal insufficiency re solved [facility] Work Phone: Evaluation note* Diagnosis [...] Pancytopenia acute Acute renal insufficiency re solved [facility] Work Phone: Evaluation note* Diagnosis [...] Pancytopenia acute Acute renal insufficiency re solved Acute on chronic anemia acut e Alzheimer's dementia acute Coffee ground emesis acute Multiple myeloma acute Pancytopenia acute Upper GI bleeding acute [facility] Work Phone: Evaluation note* Diagnosis Onset Date Resolution Status Anemia acute Elevated total protein acute Acute renal insufficiency re solved Leukopenia resolved Thrombocytopenia resolved Alzheimer's dementia acute Hypercalcemia acute Multiple myeloma acute Pancytopenia acute Acute hypotension resolved Acute renal insufficiency re solved Anemia resolved Encounter for chemotherapy management resolved Leukopenia resolved Syncope resolved Thrombocytopenia resolved Anemia acute Hypercalcemia acute Multiple myeloma acute Acute renal insufficiency re solved Anemia acute Hypercalcemia acute Multiple myeloma acute Acute renal insufficiency re solved Anemia acute Hypercalcemia acute Multiple myeloma acute Acute renal insufficiency re solved Alzheimer's dementia acute Multiple myeloma acute Pancytopenia acute Acute on chronic anemia reso lved Coffee ground emesis resolve d Upper GI bleeding resolved Hypercalcemia acute Multiple myeloma acute Acute on chronic anemia reso lved Acute renal insufficiency re solved Coffee ground emesis resolve d Upper GI bleeding resolved [facility] Work Phone: History of Present illness Narrative* The patient states he has been generally stable since the last visit. Comorbid Illnesses: hypertension. * Symptoms: denies chest pain at rest, denies exertional chest pain, denies dyspnea, worsened fatigue, worsened exercise intolerance, denies palpitations, denies edema, denies orthopnea, denies dizziness and denies orthostatic dizziness. * Disease Monitoring: -[facility]Kay[facility] Laguerre DO Work Phone: History of [...] the near future to establish anticoagulation practice. -[facility] 250 DO Work Phone: History of Present [...] the near future to establish anticoagulation practice. -[facility] [employer] DO Work Phone: History of Present illness [...] medication regimen. He denies medication side effects. [facility] [employer] DO Work Phone: History of Present illness [...] medication regimen. He denies medication side effects. [facility] [employer] DO Work Phone: Hospital course Narrative No data available for this section [facility] Hospital Discharge instructions No data available for this section [facility] Additional Instructions Custodial Retirement to manage care: - Full code - PT/OT eval and treat - Routine vital signs - Mepilex border foam to Coccyx for added protection. Change every 3 days and as needed. - CBC/CMP on Sunday - results [facility] Work Phone: Hospital Discharge instructionsAmbulatory Orders* Referral to General Surgery Time Frame: 03/20/24, Location: None Selected [facility] Work Phone: Hospital Discharge instructions Additional Instructions snf care facility to manage: -PT/OT to eval and treat -Monitor VS per protocol -Fall precautions -Monitor for signs of bleeding -Perform GI assessments -Care to be managed by LT providers.[facility] Work Phone: Progress note No data available for this section [facility] progress note Author Bertha [facility] March 20, 2024 9:14am Note Date/Time March 20, 2024 8:19 am [facility] [place] [address] Cancer Center Note Signed Patient: Neil Wilcox MR#: [id number] : 1945 Acct:[id number] Age/Sex: 78 / M Type: REG AMB [...] cytopenias. BM Bx, done as inpatient at [facility], revealed multiple myeloma. Myeloma FISH revealed 14 [...] of 2 Cycle Day Next Admin 14 of 21 No Active Chemotherapy More Active [...] not progressed. 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 He had visited the [employer] nuclear event after the event for site [...] labs came back high concerning for IGA Booker monoclonal multiple myeloma with IgA 3828, M [...] cytopenias. BM Bx, done as inpatient at [facility], revealed multiple myeloma. Myeloma FISH revealed 14 [...] up, had bone marrow biopsy while inpatient. [facility] Medical History Medical History (Updated 03/13/24 @ [...] fracture and therefore he is admitted to [facility] now for rehab and probably long- term due to his dementia. He is a and was not active in water but he was in [place] and during [place] War. He visited [facility] for the sightseeing but was not during the nuclear [employer] event. He has been having multiple falls [...] follow Dictated By: Bertha Cuevas MD DD/ [id number] Signed By: <Electronically signed by Bertha Cuevas MD> 03/20/24 0914 [facility] Work Phone: Reason for referral (narrative)* Consultation (Routine) - Authorized Specialty Diagnoses / Procedures Referred By Contac t Referred To Contact Cardiology Diagnoses Paroxysmal atrial fibrillation (CMS/HCC) Procedures Follow Up In Cardiology Za Hernández MD [address] [facility] [address] [place] [address] Za Hernández MD [address] [facility] [address] [place] [address] Referral ID Status Reason Start Date Expiration Date V isits Requested Visits Authorized [id number] Authorized 10/22/2023 10/21/2024 1 1 * Consultation (Routine) - Authorized Specialty Diagnoses / Procedures Referred By Contac t Referred To Contact Cardiology Diagnoses Paroxysmal atrial fibrillation (CMS/HCC) Procedures Follow Up In Cardiology Za Hernández MD [address] [facility] [address] [place] [address] Loulou Arreguin, OPERATOR-BRICK CLEANER [address] [facility] [address] [place] [address] Referral ID Status Reason Start Date Expiration Date V isits Requested Visits Authorized [id number] Authorized 10/22/2023 10/21/2024 1 1 [facility] Work Phone: Reason for Referral Status Reason Specialty Diagnoses / Procedures Referred By Contact Referred To Contact Not Required - [facility]o Radiology Diagnoses 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) Procedures CT HEAD WO CONTRAST Ul Shalom Graham MD [address] [facility] [address] [place] [address] Specialty Diagnoses / Procedures Referred By Contac t Referred To Contact Radiology Diagnoses Atrial fibrillation, unspecified type (CMS/HCC) Procedures [place] [address] [place] [address] Referral ID Status Reason Start Date Expiration Date Visits Requested Visits Authorized [id number] Authorized Perform Procedure 11/01/2023 10/31/2024 1 1 Assessments Diagnosis 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) Advance Directives No Advanced Directives Records FoundDocuments on File Type Date Recorded 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 Advance Directives and Living Will Power of Head Cleaning Porter Latest Code Status on File Code Status Date Activated Date Inactivated Comments Full Code 12/21/2019 9:20 PM 12/22/2019 7:58 PM Advance Directive Response Recorded Date/ Time Advance Directives No October 30, 2018 10:33am Documents on File Type Date Recorded 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 ACP-Advance Directive ACP-Power of Head Cleaning Porter Latest Code Status on File Code Status [...] pressure Cerebral Infarction Follow Up Tox check Upper GI bleed Upper GI bleed Inpatient follow up pancytopenia C90.00 Inpatient follow up Reason for Visit Anemia Elevated total protein Acute renal insufficiency Leukopenia Thrombocytopenia Alzheimer's dementia Hypercalcemia Multiple myeloma Pancytopenia Acute hypotension Acute renal insufficiency Anemia Encounter for chemotherapy management Leukopenia Syncope Thrombocytopenia Anemia Hypercalcemia Multiple myeloma Acute renal insufficiency Anemia Hypercalcemia Multiple myeloma Acute renal insufficiency Anemia Hypercalcemia Multiple myeloma Acute renal insufficiency Alzheimer's dementia Multiple myeloma Pancytopenia Acute on chronic anemia Coffee ground emesis Upper GI bleeding Hypercalcemia Multiple myeloma Acute on chronic anemia Acute renal insufficiency Coffee ground emesis Upper GI bleeding Chief Complaint NEW Pancytopenia Multiple Myeloma Low [...] * I am doing ok * NEIL SAUCEDOUBB is being seen for hypertension. * Patient [...] WO CONTRAST Ul Shalom Graham MD [address] [place] [address] Reason Comments laao Specialty Diagnoses / Procedures Referred By Contac t Referred To Contact Diagnoses Atrial fibrillation (CMS/HCC) Atrial fibrillation (CMS/HCC) [I48.91] Procedures AR PERQ CLSR TCAT L ATR APNDGE W/ENDOCARDIAL IMPLNT AR PERQ CLSR TCAT L ATR APNDGE W/ENDOCARDIAL IMPLNT LAAO (Left Atrial Appendage Occlusion) [place] [address] [place] [address] [facility] [address] [facility] [address] [place] [address] Referral ID Status Reason Start Date Expiration Date Visits Re quested Visits Authorized [id number] 1 1 Reason Comments Follow-up Watchman follow up Specialty Diagnoses / Procedures Referred By Contac t Referred To Contact Radiology Diagnoses Atrial fibrillation, unspecified type (CMS/HCC) Procedures [place] [address] [place] [address] Referral ID Status Reason Start Date Expiration Date Visits Requested Visits Authorized [id number] Authorized Perform Procedure 11/01/2023 10/31/2024 1 1 [...] section and content) DATE CREATED AUTHOR 10/14/2020 [facility] DATE CREATED AUTHOR AUTHOR'S ORGANIZ ATION 04/23/2021 [facility] DATE CREATED AUTHOR AUTHOR'S ORGANIZ ATION 10/04/2021 [facility] DATE CREATED AUTHOR AUTHOR'S ORGANIZ ATION 01/24/2023 [facility] DATE CREATED AUTHOR AUTHOR'S ORGANIZ ATION 06/15/2023 [facility] DATE CREATED AUTHOR AUTHOR'S ORGANIZ ATION 08/05/2023 [facility] DATE CREATED AUTHOR AUTHOR'S ORGANIZ ATION 09/02/2023 [facility] DATE CREATED AUTHOR AUTHOR'S ORGANIZ ATION 11/21/2023 [facility] DATE CREATED AUTHOR AUTHOR'S ORGANIZ ATION 12/04/2023 [facility] DATE CREATED AUTHOR AUTHOR'S ORGANIZ ATION 01/03/[address] [facility] DATE CREATED AUTHOR AUTHOR'S ORGANIZ ATION 01/16/2024 [facility] DATE CREATED AUTHOR AUTHOR'S ORGANIZ ATION 02/13/2024 [facility] DATE CREATED AUTHOR AUTHOR'S ORGANIZ ATION 03/05/2024 [facility] DATE CREATED AUTHOR AUTHOR'S ORGANIZ ATION 04/13/2024 [facility] DATE CREATED AUTHOR AUTHOR'S ORGANIZ ATION 05/03/2024 [facility] Goals (unrecognized section and [...] Active Za Hernández MD Attending Provider Active Security Clerk Relationship Specialty Start Date End Date Sam Cooney DO [address] [place] [address] PCP - General 09/24/19 Security Clerk Relationship Specialty Start Date End Date Sam Cooney DO [address] [place] [address] PCP - General 09/24/19 Security Clerk Relationship Specialty Start Date End Date Sam Cooney DO [address] [place] [address] PCP - General 09/24/19 Security Clerk Relationship Specialty Start Date End Date Sam Cooney MD [address] [place] [id number] PCP - General Family Medicine 08/13/23 Security Clerk Relationship Specialty Start Date End Date Sam Cooney DO [address] [place] [address] PCP - General 09/24/19 Team Status: Inactive [...] Attending Provider Active Start: April 01, 2024 Team Status: Inactive Member Role Status Dates Sam Cooney DO Primary Care Provider Active Start: April 23, 2024 End: April 23, 2024 Soha Jensen APRN Attending Provider Acti ve Start: April 23, 2024 End: April 23, 2024 Team Status: Active Member Role Status Dates Sam Cooney DO Primary Care Provide r, Referring Provider Active Start: April 23, 2024 Bertha Cuevas MD Attending Provider Active Start: April 23, 2024 Team Status: Active Member Role Status Dates Ratna Nick MD Primary Care Provider Active Team Status: Inactive Member Role Status Dates Ratna Nick MD Primary Care Provider Active S tart: April 27, 2024 End: April 29, 2024 Elie Balderrama MD Admit Provider Active Start: 2023 End: April 29, 2024 Estrellita Sharif DO Other Provider Active Start: April 27, 2024 End: April 29, 2024 Evon Santana MD Attending Provider Active St art: April 27, 2024 End: April 29, 2024 Team Status: Active Member Role Status Dates Ratna Nick MD Primary Care Provider Active S tart: April 27, 2024 Elie Balderrama MD Admit Provider Active Start: 2023 Estrellita Sharif DO Attending Provider, Other Provider Active Start: April 27, 2024 Jc Johnson MD Other Provider Active Start: April 27, 2024 Team Status: Active Member Role Status Dates Ratna Nick MD Primary Care Provider Active S tart: April 30, 2024 Bertha Cuevas MD Attending Provider Active Start: April 30, 2024 Team Status: Active Member Role Status Dates Sam Cooney DO Primary Care Provide r, Referring Provider Active Start: April 30, 2024 Bertha Cuevas MD Attending Provider Active Start: April 30, 2024 Team Status: Inactive Member Role Status Krissy Nick MD Primary Care Provider Active S tart: April 30, 2024 End: April 30, 2024 Bertha Cuevas MD Attending Provider Active Start: April 30, 2024 End: April 30, 2024 Scheduled Active and Recently Administ ered [...] BE BASED ON THE PRIMARY CLINICAL RECORDS. [facility]. provides no warranty or guarantee of the accuracy or completeness of information in this document.
[2024-05-05 09:37] LABS: Hemoglobin 7.9 g/dL (14.0-18.0); Mean Corpuscular HGB Conc 32.9 g/dL (29.9-35.2); Mean Corpuscular Hemoglobin 32.4 pg (25.9-34.0); Mean Corpuscular Volume 98.4 fL (80.0-94.0); Mean Platelet Volume 9.7 fL (9.5-13.5); Platelet Count 85 10^3/uL (150-450); Red Blood Count 2.44 10^6/uL (4.70-6.10); Red Cell Distribution Width 20.1 % (11.0-15.0); White Blood Count 2.8 10^3/uL (4.0-11.0)
[2024-05-05 10:01] LABS: Band Neutrophils Absolute 0.3 10^3/uL (0.0-0.3); Eosinophils Absolute Manual 0.19 10^3/uL (0.00-0.70); Segmented Neut Absolute Manual 1.84 10^3/uL (1.4-6.5)
[2024-05-05 15:44] LABS: Alanine Aminotransferase 16 U/L (16-63); Albumin Globulin Ratio 0.4; Albumin Level 2.3 g/dL (3.4-5.0); Alkaline Phosphatase 62 U/L (46-116); Anion Gap 14.4; Aspartate Amino Transferase 8 U/L (15-37); BUN Creatinine Ratio 21.2; Bilirubin Total 0.5 mg/dL (0.2-1.0); Chloride 101 mmol/L (98-107); Estimated GFR (African America 45 (>=60); Estimated GFR (Non-African Ame 37 (>=60); Globulin 5.9 g/dL; Glucose 89 mg/dL (74-106); Potassium 4.4 mmol/L (3.5-5.1); Sodium 135 mmol/L (136-145); Total Protein 8.2 g/dL (6.4-8.2)
== END 2024-05-05 05:55 | disposition home or self-care (01) ==
LOC: LAB 05:54
PROVIDERS: PCP Family Medicine; Visit Provider Family Medicine
DX: C90.00 Multiple myeloma not having achieved remission (principal)
CPT/HCPCS: 36415; 80053; 85007; 85027

== ENCOUNTER 2024-05-12 01:05 | Outpatient (RCR) | payer MEDICARE, OTHER, SELFPAY ==
[2024-05-12 08:38] LABS: Hemoglobin 8.3 g/dL (14.0-18.0); Mean Corpuscular HGB Conc 33.2 g/dL (29.9-35.2); Mean Corpuscular Hemoglobin 32.5 pg (25.9-34.0); Mean Platelet Volume 9.9 fL (9.5-13.5); Platelet Count 111 10^3/uL (150-450); Red Blood Count 2.55 10^6/uL (4.70-6.10); Red Cell Distribution Width 20.1 % (11.0-15.0); White Blood Count 2.6 10^3/uL (4.0-11.0)
[2024-05-12 09:12] LABS: Eosinophils Absolute Manual 0.15 10^3/uL (0.00-0.70); Lymphocytes Absolute Manual 0.83 10^3/uL (1.20-3.80); Segmented Neut Absolute Manual 1.61 10^3/uL (1.4-6.5)
[2024-05-12 09:13] LABS: Alanine Aminotransferase 14 U/L (16-63); Albumin Globulin Ratio 0.4; Albumin Level 2.5 g/dL (3.4-5.0); Alkaline Phosphatase 67 U/L (46-116); Anion Gap 17.7; Anisocytosis 2+; Aspartate Amino Transferase 10 U/L (15-37); BUN Creatinine Ratio 21.2; Bilirubin Total 0.4 mg/dL (0.2-1.0); Calcium 9.8 mg/dL (8.5-10.1); Carbon Dioxide 22.6 mmol/L (21.0-32.0); Chloride 101 mmol/L (98-107); Estimated GFR (African America >60 (>=60); Estimated GFR (Non-African Ame >60 (>=60); Globulin 6.2 g/dL; Glucose 100 mg/dL (74-106); Macrocytosis 1+; Potassium 4.3 mmol/L (3.5-5.1); Sodium 137 mmol/L (136-145); Total Protein 8.7 g/dL (6.4-8.2)
== END 2024-05-24 23:59 | disposition home or self-care (01) ==
LOC: LAB 01:05
PROVIDERS: PCP Family Medicine; Visit Provider Family Medicine
DX: C90.00 Multiple myeloma not having achieved remission (principal)
CPT/HCPCS: 36415; 80053; 85007; 85027

== ENCOUNTER 2024-05-19 02:20 | Outpatient (RCR) | payer MEDICARE, OTHER, SELFPAY ==
[2024-05-19 07:50] LABS: Eosinophils Percent Auto 1.8 % (0.9-7.0); Hemoglobin 7.9 g/dL (14.0-18.0); Lymphocytes Absolute Auto 0.6 10^3/uL (1.2-3.8); Lymphocytes Percent Auto 28.5 % (20.5-60.0); Mean Corpuscular HGB Conc 33.6 g/dL (29.9-35.2); Mean Corpuscular Hemoglobin 33.3 pg (25.9-34.0); Mean Corpuscular Volume 99.2 fL (80.0-94.0); Mean Platelet Volume 9.4 fL (9.5-13.5); Monocytes Absolute Auto 0.1 10^3/uL (0.3-0.8); Monocytes Percent Auto 2.7 % (1.7-12.0); Neutrophils Absolute Auto 1.5 10^3/uL (1.4-6.5); Platelet Count 110 10^3/uL (150-450); Red Blood Count 2.37 10^6/uL (4.70-6.10); Red Cell Distribution Width 20.6 % (11.0-15.0); White Blood Count 2.2 10^3/uL (4.0-11.0)
[2024-05-19 07:56] LABS: Hematocrit 23.5 % (42.0-54.0)
[2024-05-19 08:02] LABS: Alanine Aminotransferase 15 U/L (16-63); Albumin Globulin Ratio 0.5; Albumin Level 2.7 g/dL (3.4-5.0); Alkaline Phosphatase 63 U/L (46-116); Anion Gap 16.8; Aspartate Amino Transferase 12 U/L (15-37); BUN Creatinine Ratio 26.4; Bilirubin Total 0.4 mg/dL (0.2-1.0); Carbon Dioxide 21.8 mmol/L (21.0-32.0); Chloride 102 mmol/L (98-107); Estimated GFR (African America 58 (>=60); Estimated GFR (Non-African Ame 48 (>=60); Globulin 5.8 g/dL; Glucose 110 mg/dL (74-106); Potassium 4.6 mmol/L (3.5-5.1); Sodium 136 mmol/L (136-145); Total Protein 8.5 g/dL (6.4-8.2)
== END 2024-05-24 23:59 | disposition home or self-care (01) ==
LOC: LAB 02:20
PROVIDERS: PCP Family Medicine; Visit Provider Nurse Practitioner Family
DX: C90.00 Multiple myeloma not having achieved remission (principal); Z79.60 Long term (current) use of unspecified immunomodulators and immunosuppressants
CPT/HCPCS: 36415; 80053; 85025

== ENCOUNTER 2024-05-28 06:11 | Outpatient (RCR) | payer MEDICARE, OTHER, SELFPAY ==
[2024-05-28 09:42] LABS: Eosinophils Absolute Auto 0.3 10^3/uL (0.0-0.7); Eosinophils Percent Auto 12.2 % (0.9-7.0); Hemoglobin 7.1 g/dL (14.0-18.0); Lymphocytes Absolute Auto 0.9 10^3/uL (1.2-3.8); Lymphocytes Percent Auto 34.7 % (20.5-60.0); Mean Corpuscular HGB Conc 33.6 g/dL (29.9-35.2); Mean Corpuscular Hemoglobin 33.6 pg (25.9-34.0); Mean Platelet Volume 9.6 fL (9.5-13.5); Monocytes Percent Auto 1.5 % (1.7-12.0); Neutrophils Absolute Auto 1.4 10^3/uL (1.4-6.5); Neutrophils Percent Auto 51.6 % (43.0-75.0); Platelet Count 74 10^3/uL (150-450); Red Blood Count 2.11 10^6/uL (4.70-6.10); Red Cell Distribution Width 21.6 % (11.0-15.0); White Blood Count 2.7 10^3/uL (4.0-11.0)
[2024-05-28 11:00] LABS: Hematocrit 21.1 % (42.0-54.0)
[2024-05-28 11:03] LABS: Alanine Aminotransferase 13 U/L (16-63); Albumin Globulin Ratio 0.4; Albumin Level 2.5 g/dL (3.4-5.0); Alkaline Phosphatase 63 U/L (46-116); Aspartate Amino Transferase 14 U/L (15-37); BUN Creatinine Ratio 22.8; Bilirubin Total 0.5 mg/dL (0.2-1.0); Calcium 9.8 mg/dL (8.5-10.1); Carbon Dioxide 23.9 mmol/L (21.0-32.0); Chloride 99 mmol/L (98-107); Estimated GFR (African America >60 (>=60); Estimated GFR (Non-African Ame >60 (>=60); Glucose 89 mg/dL (74-106); Potassium 4.9 mmol/L (3.5-5.1); Sodium 133 mmol/L (136-145); Total Protein 8.5 g/dL (6.4-8.2)
[2024-06-02 09:37] LABS: Basophils Percent Auto 0.4 % (0.2-2.0); Eosinophils Absolute Auto 0.2 10^3/uL (0.0-0.7); Eosinophils Percent Auto 6.9 % (0.9-7.0); Hemoglobin 7.3 g/dL (14.0-18.0); Immature Granulocytes Abs Auto 0.01 10^3/uL (0.00-0.03); Immature Granulocytes Pct Auto 0.4 % (0.0-0.5); Lymphocytes Percent Auto 39.8 % (20.5-60.0); Mean Corpuscular HGB Conc 33.5 g/dL (29.9-35.2); Mean Corpuscular Hemoglobin 34.4 pg (25.9-34.0); Mean Corpuscular Volume 102.8 fL (80.0-94.0); Mean Platelet Volume 10.2 fL (9.5-13.5); Monocytes Percent Auto 1.5 % (1.7-12.0); Neutrophils Absolute Auto 1.3 10^3/uL (1.4-6.5); Platelet Count 104 10^3/uL (150-450); Red Blood Count 2.12 10^6/uL (4.70-6.10); Red Cell Distribution Width 22.6 % (11.0-15.0); White Blood Count 2.6 10^3/uL (4.0-11.0)
[2024-06-02 09:44] LABS: Hematocrit 21.8 % (42.0-54.0)
[2024-06-02 10:08] LABS: Alanine Aminotransferase 13 U/L (16-63); Albumin Globulin Ratio 0.4; Albumin Level 2.4 g/dL (3.4-5.0); Alkaline Phosphatase 64 U/L (46-116); Anion Gap 14.1; Aspartate Amino Transferase 12 U/L (15-37); BUN Creatinine Ratio 20.3; Bilirubin Total 0.3 mg/dL (0.2-1.0); Calcium 8.6 mg/dL (8.5-10.1); Carbon Dioxide 23.7 mmol/L (21.0-32.0); Chloride 101 mmol/L (98-107); Estimated GFR (African America >60 (>=60); Estimated GFR (Non-African Ame 52 (>=60); Globulin 5.9 g/dL; Glucose 89 mg/dL (74-106); Potassium 4.8 mmol/L (3.5-5.1); Sodium 134 mmol/L (136-145); Total Protein 8.3 g/dL (6.4-8.2)
[2024-06-04 10:40] LABS: Basophils Percent Auto 0.4 % (0.2-2.0); Eosinophils Absolute Auto 0.2 10^3/uL (0.0-0.7); Hemoglobin 7.2 g/dL (14.0-18.0); Lymphocytes Absolute Auto 0.8 10^3/uL (1.2-3.8); Mean Corpuscular HGB Conc 31.6 g/dL (29.9-35.2); Mean Corpuscular Volume 107.5 fL (80.0-94.0); Mean Platelet Volume 9.9 fL (9.5-13.5); Monocytes Percent Auto 1.5 % (1.7-12.0); Neutrophils Absolute Auto 1.6 10^3/uL (1.4-6.5); Neutrophils Percent Auto 59.1 % (43.0-75.0); Platelet Count 114 10^3/uL (150-450); Red Blood Count 2.12 10^6/uL (4.70-6.10); Red Cell Distribution Width 23.2 % (11.0-15.0); White Blood Count 2.7 10^3/uL (4.0-11.0)
[2024-06-04 11:22] LABS: Hematocrit 22.8 % (42.0-54.0)
[2024-06-09 09:32] LABS: Basophils Percent Auto 0.4 % (0.2-2.0); Eosinophils Absolute Auto 0.3 10^3/uL (0.0-0.7); Eosinophils Percent Auto 9.3 % (0.9-7.0); Hematocrit 28.1 % (42.0-54.0); Hemoglobin 9.7 g/dL (14.0-18.0); Lymphocytes Percent Auto 36.3 % (20.5-60.0); Mean Corpuscular HGB Conc 34.5 g/dL (29.9-35.2); Mean Corpuscular Hemoglobin 33.7 pg (25.9-34.0); Mean Corpuscular Volume 97.6 fL (80.0-94.0); Mean Platelet Volume 9.6 fL (9.5-13.5); Monocytes Absolute Auto 0.1 10^3/uL (0.3-0.8); Monocytes Percent Auto 2.2 % (1.7-12.0); Neutrophils Absolute Auto 1.4 10^3/uL (1.4-6.5); Neutrophils Percent Auto 51.8 % (43.0-75.0); Platelet Count 118 10^3/uL (150-450); Red Blood Count 2.88 10^6/uL (4.70-6.10); Red Cell Distribution Width 21.3 % (11.0-15.0); White Blood Count 2.7 10^3/uL (4.0-11.0)
[2024-06-16 09:24] LABS: Basophils Percent Auto 0.4 % (0.2-2.0); Eosinophils Absolute Auto 0.2 10^3/uL (0.0-0.7); Eosinophils Percent Auto 8.5 % (0.9-7.0); Hematocrit 25.1 % (42.0-54.0); Hemoglobin 8.6 g/dL (14.0-18.0); Lymphocytes Percent Auto 34.4 % (20.5-60.0); Mean Corpuscular HGB Conc 34.3 g/dL (29.9-35.2); Mean Corpuscular Hemoglobin 33.9 pg (25.9-34.0); Mean Corpuscular Volume 98.8 fL (80.0-94.0); Mean Platelet Volume 9.7 fL (9.5-13.5); Monocytes Absolute Auto 0.1 10^3/uL (0.3-0.8); Monocytes Percent Auto 1.8 % (1.7-12.0); Neutrophils Absolute Auto 1.6 10^3/uL (1.4-6.5); Neutrophils Percent Auto 54.9 % (43.0-75.0); Platelet Count 112 10^3/uL (150-450); Red Blood Count 2.54 10^6/uL (4.70-6.10); Red Cell Distribution Width 20.9 % (11.0-15.0); White Blood Count 2.8 10^3/uL (4.0-11.0)
[2024-06-16 09:50] LABS: Alanine Aminotransferase 13 U/L (16-63); Albumin Globulin Ratio 0.4; Albumin Level 2.5 g/dL (3.4-5.0); Alkaline Phosphatase 62 U/L (46-116); Anion Gap 12.5; Aspartate Amino Transferase 13 U/L (15-37); BUN Creatinine Ratio 14.2; Bilirubin Total 0.4 mg/dL (0.2-1.0); Calcium 9.3 mg/dL (8.5-10.1); Carbon Dioxide 25.9 mmol/L (21.0-32.0); Chloride 102 mmol/L (98-107); Estimated GFR (African America >60 (>=60); Estimated GFR (Non-African Ame >60 (>=60); Globulin 5.8 g/dL; Glucose 93 mg/dL (74-106); Potassium 4.4 mmol/L (3.5-5.1); Sodium 136 mmol/L (136-145); Total Protein 8.3 g/dL (6.4-8.2)
[2024-06-18 10:24] LABS: Basophils Percent Auto 0.4 % (0.2-2.0); Eosinophils Absolute Auto 0.3 10^3/uL (0.0-0.7); Eosinophils Percent Auto 9.8 % (0.9-7.0); Hematocrit 28.9 % (42.0-54.0); Hemoglobin 9.8 g/dL (14.0-18.0); Lymphocytes Absolute Auto 0.9 10^3/uL (1.2-3.8); Lymphocytes Percent Auto 30.2 % (20.5-60.0); Mean Corpuscular HGB Conc 33.9 g/dL (29.9-35.2); Mean Corpuscular Hemoglobin 33.4 pg (25.9-34.0); Mean Corpuscular Volume 98.6 fL (80.0-94.0); Mean Platelet Volume 9.7 fL (9.5-13.5); Monocytes Absolute Auto 0.1 10^3/uL (0.3-0.8); Monocytes Percent Auto 2.5 % (1.7-12.0); Neutrophils Absolute Auto 1.6 10^3/uL (1.4-6.5); Neutrophils Percent Auto 57.1 % (43.0-75.0); Platelet Count 126 10^3/uL (150-450); Red Blood Count 2.93 10^6/uL (4.70-6.10); Red Cell Distribution Width 21.1 % (11.0-15.0); White Blood Count 2.9 10^3/uL (4.0-11.0)
[2024-06-18 10:44] LABS: Alanine Aminotransferase 13 U/L (16-63); Albumin Globulin Ratio 0.4; Albumin Level 2.6 g/dL (3.4-5.0); Alkaline Phosphatase 60 U/L (46-116); Anion Gap 13.7; Aspartate Amino Transferase 10 U/L (15-37); BUN Creatinine Ratio 15.5; Bilirubin Total 0.4 mg/dL (0.2-1.0); Calcium 9.5 mg/dL (8.5-10.1); Carbon Dioxide 24.6 mmol/L (21.0-32.0); Chloride 102 mmol/L (98-107); Estimated GFR (African America >60 (>=60); Estimated GFR (Non-African Ame >60 (>=60); Globulin 5.8 g/dL; Glucose 111 mg/dL (74-106); Potassium 4.3 mmol/L (3.5-5.1); Sodium 136 mmol/L (136-145); Total Protein 8.4 g/dL (6.4-8.2)
[2024-06-18 15:08] LABS: Alpha-1-Globulin 0.2 g/dL (0.0-0.4); Alpha-2-Globulin 0.9 g/dL (0.4-1.0); Free Kappa Lt Chains,S 1004.6 mg/L (3.3-19.4); Free Lambda Lt Chains,S 5.4 mg/L (5.7-26.3); Gamma Globulin 0.3 g/dL (0.4-1.8); Immunoglobulin A, Qn, Serum 3067 mg/dL (61-437); Immunoglobulin G, Qn, Serum 419 mg/dL (603-1613); Immunoglobulin M, Qn, Serum 9 mg/dL (15-143); Kappa/Lambda Ratio,S 186.04 (0.26-1.65); Protein, Total 7.9 g/dL (6.0-8.5)
[2024-06-23 09:06] LABS: Basophils Percent Auto 0.3 % (0.2-2.0); Eosinophils Absolute Auto 0.3 10^3/uL (0.0-0.7); Eosinophils Percent Auto 9.8 % (0.9-7.0); Hematocrit 28.4 % (42.0-54.0); Hemoglobin 9.5 g/dL (14.0-18.0); Immature Granulocytes Abs Auto 0.01 10^3/uL (0.00-0.03); Immature Granulocytes Pct Auto 0.3 % (0.0-0.5); Lymphocytes Absolute Auto 0.8 10^3/uL (1.2-3.8); Lymphocytes Percent Auto 25.7 % (20.5-60.0); Mean Corpuscular HGB Conc 33.5 g/dL (29.9-35.2); Mean Corpuscular Hemoglobin 33.5 pg (25.9-34.0); Mean Platelet Volume 9.2 fL (9.5-13.5); Monocytes Absolute Auto 0.1 10^3/uL (0.3-0.8); Monocytes Percent Auto 2.6 % (1.7-12.0); Neutrophils Absolute Auto 1.9 10^3/uL (1.4-6.5); Neutrophils Percent Auto 61.3 % (43.0-75.0); Platelet Count 115 10^3/uL (150-450); Red Blood Count 2.84 10^6/uL (4.70-6.10); Red Cell Distribution Width 21.2 % (11.0-15.0); White Blood Count 3.1 10^3/uL (4.0-11.0)
[2024-06-23 09:47] LABS: Alanine Aminotransferase 12 U/L (16-63); Albumin Globulin Ratio 0.5; Albumin Level 2.8 g/dL (3.4-5.0); Alkaline Phosphatase 64 U/L (46-116); Anion Gap 12.9; Aspartate Amino Transferase 8 U/L (15-37); BUN Creatinine Ratio 17.4; Bilirubin Total 0.3 mg/dL (0.2-1.0); Calcium 9.8 mg/dL (8.5-10.1); Carbon Dioxide 26.2 mmol/L (21.0-32.0); Chloride 99 mmol/L (98-107); Estimated GFR (African America >60 (>=60); Estimated GFR (Non-African Ame 53 (>=60); Globulin 6.1 g/dL; Glucose 90 mg/dL (74-106); Potassium 4.1 mmol/L (3.5-5.1); Sodium 134 mmol/L (136-145); Total Protein 8.9 g/dL (6.4-8.2)
== END 2024-08-11 11:13 | disposition home or self-care (01) ==
LOC: LAB 06:11
PROVIDERS: PCP Family Medicine; Visit Provider Family Medicine
DX: Z51.81 Encounter for therapeutic drug level monitoring (principal); C90.00 Multiple myeloma not having achieved remission
CPT/HCPCS: 36415; 80053; 82784; 83521; 84155; 84165; 85025

== ENCOUNTER 2024-06-25 02:31 | Outpatient (RCR) | payer MEDICARE, OTHER, SELFPAY ==
[2024-06-25 10:26] LABS: Basophils Percent Auto 0.3 % (0.2-2.0); Eosinophils Absolute Auto 0.3 10^3/uL (0.0-0.7); Eosinophils Percent Auto 8.7 % (0.9-7.0); Immature Granulocytes Abs Auto 0.01 10^3/uL (0.00-0.03); Immature Granulocytes Pct Auto 0.3 % (0.0-0.5); Lymphocytes Absolute Auto 1.1 10^3/uL (1.2-3.8); Lymphocytes Percent Auto 31.6 % (20.5-60.0); Mean Corpuscular HGB Conc 33.3 g/dL (29.9-35.2); Mean Corpuscular Hemoglobin 33.6 pg (25.9-34.0); Mean Corpuscular Volume 100.7 fL (80.0-94.0); Mean Platelet Volume 9.8 fL (9.5-13.5); Monocytes Absolute Auto 0.1 10^3/uL (0.3-0.8); Monocytes Percent Auto 3.3 % (1.7-12.0); Neutrophils Absolute Auto 1.9 10^3/uL (1.4-6.5); Neutrophils Percent Auto 55.8 % (43.0-75.0); Platelet Count 121 10^3/uL (150-450); Red Blood Count 2.68 10^6/uL (4.70-6.10); Red Cell Distribution Width 21.4 % (11.0-15.0); White Blood Count 3.3 10^3/uL (4.0-11.0)
[2024-06-25 11:14] LABS: Alanine Aminotransferase 12 U/L (16-63); Albumin Globulin Ratio 0.5; Albumin Level 2.7 g/dL (3.4-5.0); Alkaline Phosphatase 59 U/L (46-116); Anion Gap 19.4; Aspartate Amino Transferase 10 U/L (15-37); BUN Creatinine Ratio 16.8; Bilirubin Total 0.3 mg/dL (0.2-1.0); Calcium 9.2 mg/dL (8.5-10.1); Carbon Dioxide 21.3 mmol/L (21.0-32.0); Chloride 100 mmol/L (98-107); Estimated GFR (African America >60 (>=60 mL/min/1.73m^2); Estimated GFR (Non-African Ame 51 (>=60 mL/min/1.73m^2); Globulin 5.7 g/dL; Glucose 87 mg/dL (74-106); Potassium 4.7 mmol/L (3.5-5.1); Sodium 136 mmol/L (136-145); Total Protein 8.4 g/dL (6.4-8.2)
[2024-07-02 08:46] LABS: Eosinophils Absolute Auto 0.2 10^3/uL (0.0-0.7); Eosinophils Percent Auto 6.7 % (0.9-7.0); Hemoglobin 8.2 g/dL (14.0-18.0); Lymphocytes Absolute Auto 0.6 10^3/uL (1.2-3.8); Lymphocytes Percent Auto 16.5 % (20.5-60.0); Mean Corpuscular HGB Conc 34.2 g/dL (29.9-35.2); Mean Corpuscular Hemoglobin 34.5 pg (25.9-34.0); Mean Corpuscular Volume 100.8 fL (80.0-94.0); Monocytes Absolute Auto 0.1 10^3/uL (0.3-0.8); Monocytes Percent Auto 2.8 % (1.7-12.0); Neutrophils Absolute Auto 2.6 10^3/uL (1.4-6.5); Platelet Count 111 10^3/uL (150-450); Red Blood Count 2.38 10^6/uL (4.70-6.10); Red Cell Distribution Width 21.6 % (11.0-15.0); White Blood Count 3.6 10^3/uL (4.0-11.0)
[2024-07-02 09:22] LABS: Alanine Aminotransferase 11 U/L (16-63); Albumin Globulin Ratio 0.5; Albumin Level 2.7 g/dL (3.4-5.0); Alkaline Phosphatase 61 U/L (46-116); Aspartate Amino Transferase 10 U/L (15-37); BUN Creatinine Ratio 16.8; Bilirubin Total 0.5 mg/dL (0.2-1.0); Calcium 9.6 mg/dL (8.5-10.1); Carbon Dioxide 23.6 mmol/L (21.0-32.0); Chloride 101 mmol/L (98-107); Estimated GFR (African America 58 (>=60 mL/min/1.73m^2); Estimated GFR (Non-African Ame 48 (>=60 mL/min/1.73m^2); Globulin 5.7 g/dL; Glucose 90 mg/dL (74-106); Potassium 4.6 mmol/L (3.5-5.1); Sodium 136 mmol/L (136-145); Total Protein 8.4 g/dL (6.4-8.2)
[2024-07-03 16:10] LABS: Albumin 3.2 g/dL (2.9-4.4); Alpha-1-Globulin 0.2 g/dL (0.0-0.4); Alpha-2-Globulin 0.8 g/dL (0.4-1.0); Free Kappa Lt Chains,S 901.9 mg/L (3.3-19.4); Free Lambda Lt Chains,S 6.3 mg/L (5.7-26.3); Gamma Globulin 0.3 g/dL (0.4-1.8); Immunoglobulin A, Qn, Serum 2791 mg/dL (61-437); Immunoglobulin G, Qn, Serum 420 mg/dL (603-1613); Immunoglobulin M, Qn, Serum 10 mg/dL (15-143); Kappa/Lambda Ratio,S 143.16 (0.26-1.65); Protein, Total 7.8 g/dL (6.0-8.5)
== END 2024-09-23 23:59 | disposition home or self-care (01) ==
LOC: LAB 02:31
PROVIDERS: PCP Family Medicine; Visit Provider Family Medicine
DX: C90.00 Multiple myeloma not having achieved remission (principal)
CPT/HCPCS: 36415; 80053; 82784; 83521; 84155; 84165; 85025